=== PATIENT | female | born 1940 | race Caucasian/White ===

== ENCOUNTER 2024-06-22 23:03 | Observation (INO) | payer MEDICARE, SELFPAY ==
--- OUTSIDE RECORDS SUMMARY | 2024-06-22 23:06 | XMS_ITS | Clinical Summary ---
Author Organization [facility] Address [address] [place] [id number] Care Team Providers Care Chargeback Specialist Name Role Phone Alfreda Ray PA-C Primary Care Provider + Alfreda Ray PA-C Unavailable [phone] Katrin Orellana PA-C Unavailable Shanna Vang PA-C Unavailable [phone] Fransisco Eddy MD Unavailable [phone] Cristina Hsieh [facility] Unavailable Alfreda Ray PA-C Unavailable [phone] Cristina Hsieh [facility] Unavailable Dakota Tatum MD Unavailable [phone] Dakota Tatum MD Unavailable [phone] Srinivas Marie DO Unavailable [phone] Allergies Active Allergy Reactions Criticality Noted Date Comments Codeine Low 08/11/2016 Other reaction(s): severe nausea Medications acetaminophen (TYLENOL) 500 MG tabletIndications:P rimary osteoarthritis involving multiple joints Take 2 tablets (1,000 mg) by mouth 3 times daily as needed for pain 3 Active cyanocobalamin (VITAMIN B-12) 1000 MCG tablet Take 1,000 mcg by mouth daily Active predniSONE (DELTASONE) 5 MG tabletIndications:P olyarthralgia Take 1 tab daily for 90 days 90 tablet 1 4 Active atenolol (TENORMIN) 25 MG tabletIndications:B enign hypertension with CKD (chronic kidney disease) stage III (H) Take 1 tablet (25 mg) by mouth daily. 90 tablet 3 4 Active lisinopril-hydrochl orothiazide (ZESTORETIC) 10-12.5 MG tabletIndications:B enign hypertension with CKD (chronic kidney disease) stage III (H) Take 1 tablet by mouth daily. 90 tablet 3 4 Active simvastatin (ZOCOR) 20 MG tabletIndications:H ypercholesterolemia Take 1 tablet (20 mg) by mouth at bedtime. 90 tablet 3 4 Active DULoxetine (CYMBALTA) 60 MG capsuleIndications: Primary osteoarthritis involving multiple joints Take 1 capsule (60 mg) by mouth daily (with dinner). 90 capsule 3 4 Active gabapentin (NEURONTIN) 300 MG capsuleIndications: Primary osteoarthritis involving multiple joints,Arthralgia, unspecified joint Take 2 capsules (600 mg) by mouth every morning AND 2 capsules (600 mg) daily (with lunch) AND 3 capsules (900 mg) every evening. 630 capsule 3 4 Active rivaroxaban ANTICOAGULANT (XARELTO) 10 MG TABS tabletIndications:A cute deep vein thrombosis (DVT) of femoral vein of left lower extremity (H),Family history of clotting disorder Take 1 tablet (10 mg) by mouth daily with food. 90 tablet 3 4 Active naltrexone (DEPADE/REVIA) 50 MG tabletIndications:S evere obesity (BMI 35.0-39.9) with comorbidity (H) Take 25 mg (half tablet) daily x 7 days then 50 mg (1 tablet) daily 90 tablet 1 4 Active RINVOQ 15 MG tabletIndications:R heumatoid arthritis involving multiple sites with positive rheumatoid factor (H) TAKE 1 TABLET (15 MG) BY MOUTH DAILY 30 tablet 5 4 Active predniSONE (DELTASONE) 1 MG tabletIndications:P olyarthralgia Take 4 tablets daily, taper per Dr. 120 tablet 2 4 Active valACYclovir (VALTREX) 500 MG tabletIndications:R ecurrent cold sores Take 1 tablet (500 mg) by mouth daily. 90 tablet 3 4 Active cefpodoxime (VANTIN) 200 MG tabletIndications:C omplicated UTI (urinary tract infection) Take 1 tablet (200 mg) by mouth 2 times daily for 7 days. 14 tablet 4 06/22/19 25 Active sulfamethoxazole-tr imethoprim (BACTRIM DS) 800-160 MG tabletIndications:C omplicated UTI (urinary tract infection) Take 1 tablet by mouth 2 times daily for 7 days. 14 tablet 4 06/24/19 25 Active Hospital, Clinic, or Other Facility Administered Medication Ordered Dose Route Frequency Start Date End Date Status cefTRIAXone (ROCEPHIN) in lidocaine 1% for IM administration 1 gIndications:see associated diagnosis for clinic use 1 g IM ONCE 06/15/2024 06/15/2024 Ended Active Problems Problem Noted Date Diagnosed Date Adverse effect of prednisone, sequela - weight g ain 03/16/2024 Severe obesity (BMI 35.0-39. 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 Fransisco Eddy @ [facility] - on Humira & hydroxychloroquine 08/27/2022 Family history of clotting disorder 08/26/2022 Chronic diarrhea 03/09/2022 Osteopenia -DEXA 09/30/2020 -repeat 202303/09/20 Vitamin B12 deficiency (non anemic) 03/05/2022 Colon cancer (H) - s/p partial colectomy 2008 Acute deep vein thrombosis ( DVT) of femoral vein of left lower extremity (H) - due to hx of recurrence hematology recommends daily Xaralto 10 mg prophylaxis indefinitely. avoid Eliquis d/t colectomy 12/08/2021 Primary osteoarthritis involving multiple joints 09/27/2019 Hyperopia of both eyes with astigmatism and pres byopia 01/31/2019 Insomnia, unspecified type 04/22/2017 Benign hypertension with CKD (chronic kidney disease) stage III 04/08/2017 Bilateral pseudophakia 04/05/2017 Prediabetes 03/21/2012 Varicose veins of legs 10/13/2011 Seborrheic keratosis 09/04/2010 Eczema 06/17/2010 Hypercholesterolemia 11/08/2007 Resolved Problems Problem Noted Date Diagnosed Date Resolved Date Deconditioned low back 06/22/202309/22 Continuous opioid dependence 01/04/2023 08/19/2023 Arthralgia, unspecified joint 08/26/2022 03/10/2023 CSA signed - 03/10/2023- tram adol 50 mg #60 monthly, q6 month OV 08/26/2022 08/19/2023 Osteoarthritis of spine with radiculopathy, lumbar region 03/06/2022 03/09/2022 Deep vein thrombosis (DVT) o f popliteal vein of left lower extremity, unspecified chronicity 12/09/2021 12/30/2021 DVT (deep venous thrombosis) 12/08/2021 12/30/2021 Rheumatoid factor positive - Rheumatology consultation 2011 was not concerned for RA - 2nd opinion planned 04/202210/06/2021 08/27/2022 Hip pain 10/29/2020 08/26/2022 Chronic right-sided low back pain without sciatica 10/29/2020 09/23/2023 Sedative, hypnotic or anxiolytic dependence 02/21/2016 08/19/2023 Chronic pain 03/07/2015 12/30/2021 Overview (09/25/2019): Patient is followed by KELLY [facility] for ongoing prescription of pain medication. All refills should be approved by this provider, or covering partner. Medication(s): HYDROcodone-acetaminophen (NORCO) 5-325 MG per tablet #90 traMADol (ULTRAM) 50 MG tablet #90 temazepam (RESTORIL) 7.5 MG capsule #30 Maximum quantity per month: 30 or 90 per 3 months Clinic visit frequency required: Q 3 months Controlled substance agreement on file: Yes Date(s): 03/08/2015 Pain Clinic evaluation in the past: No DIRE Total Score(s): No flowsheet data found. Last [facility] website verification: Done 09/25/2019 [email or web address] Anxiety 04/13/2014 12/30/2021 HTN, goal below 140/90 07/14/201310/21 Hyperlipidemia with target LDL less than 130 4 12/30/2021 CKD (chronic kidney disease) stage 2, GFR 60-89 ml/min 12/28/2011 12/30/2021 Advanced directives, counseling/discussion 12/10/2011 12/06/2023 Overview (04/08/2017): Discussed advance care planning with patient; information given to patient to review. 12/10/2011 Advance Care Planning 04/08/2017: ACP Review of Chart / Resources Provided: Reviewed chart for advance care plan. Alexandria Zenobia Bradshaw has been provided information and resources to begin or update their advance care plan. Added by Cata Olivo S/P knee replacement 09/04/2010 022 Hyperlipidemia LDL goal <160 05/29/2010 07/14/2013 Hyperlipidemia LDL goal <100 04/20/2010 09/04/2010 Personal history of colon cancer, stage I 11/07/2009 12/08/2021 Colon polyps 09/12/2009 12/30/2021 Overview (09/12/2009): H/o colon cancer, recommend colonoscopy every 3 yrs DJD (degenerative joint disease) of knee 05/07/2009 12/30/2021 HTN (hypertension), benign 04/23/2009 0 07/14/2013 Hypertension 03/22/2008 12/11/2010 LEG VARICOSITY W INFLAM [454.1] 01/24/2004 12/08/2021 Overview (10/17/2008): Patient is followed by CARISSA PAGAN for ongoing prescription of narcotic pain medicine. Med: Vicodin 5/500. Maximum use per month: 31 Expected duration: Five years Narcotic agreement on file: NO Clinic visit recommended: Q 6 months Symptomatic menopausal or fe male climacteric states 01/24/2004 03/09/2022 Insomnia 01/24/2004 04/22/2017 Overview (03/21/2015): Problem list name updated by automated process. Provider to review Encounters Date Type Department Care Team Description 06/17/2024 Orders Only [address] [phone] Yamile James PA-C Complicated UTI (urinary tract infection) (Primary Dx) 06/15/2024 2:05 PM PAPER RECLAIMING MACHINE OPERATOR Office Visit [facility] [place] [address] [place] [phone] Yamile James PA-C Complicated UTI (urinary tract infection) (Primary Dx); Dysuria; Flank pain 06/15/2024 Travel 06/07/2024 3:40 PM PAPER RECLAIMING MACHINE OPERATOR E-Visit [address] [phone] Alfreda Ray PA-C Derm Problem (Entered automatically based ... 06/07/2024 MyC Medical Advice [address] [phone] Alfreda Ray PA-C 06/06/[address] [phone] Alfreda Ray PA-C 06/02/2024 10:30 AM PAPER RECLAIMING MACHINE OPERATOR Virtual Visit [facility] [address] [place] [phone] Fransisco Eddy MD Wedemeyer, Rachel M, [facility] Rheumatoid arthritis involving multiple sites with positive rheumatoid factor (H) (Primary Dx); Primary osteoarthritis involving multiple joints; Severe obesity (BMI 35.0-39.9) with comorbidity (H) - prediabetes, hypertension 05/04/2024 12:30 PM PAPER RECLAIMING MACHINE OPERATOR Office Visit [facility] [address] [phone] Fransisco Eddy MD Polyarthralgia (Primary Dx) 05/04/2024 Travel 05/01/2024 Travel 04/30/2024 MyC Medical Advice [facility] [address] [place] [phone] Alfreda Ray PA-C Urinary Problem 04/03/2024 Refill [facility] [place] [address] [place] [phone] Fransisco Eddy MD Medication Refill 2024 Telephone [facility] [address] 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 03/27/2024 Travel 03/23/2024 Travel from Last 3 Months Immunizations Name Administration Dates Next Due COVID-19 12+ (MODERNA) 05/03/2023 COVID-19 12+ (Pfizer) 03/16/2024 COVID-19 MONOVALENT 12+ (Pfizer) 03/19/2021,03/0 10/2020,08/02/2020 COVID-19 Monovalent 12+ (Pfizer 2021) 09/29/2021 Flu, Unspecified 03/01/2019 Influenza (H1N1) 07/09/2009 Influenza (High Dose) Trival ent,PF (Fluzone) 03/16/2024,02/18/2022,02/20/2020,2017,04/08/2017,03/03/2016,04/08/2015,1 06/24/2012 Influenza (IIV3) PF 03/21/2012, 1,03/15/2010,2008,04/23/2008,05/03/2007 Influenza Vaccine 65+ (FLUAD) 03/06/2023 Influenza Vaccine 65+ (Fluzone HD) 03/06/2023,,02/27/2021 Influenza Vaccine >6 months,quad, PF 03/29/2014 Pneumo Conj 13-V (2010&after) 04/08/2015 Pneumococcal 23 valent 09/18/2008 RSV Vaccine (Arexvy) 05/03/2023 TD,PF 7+ (Tenivac) 04/08/2017 TDAP Vaccine (Adacel) 03/14/2007 Twinrix A/B 09/08/2023 Zoster recombinant adjuvante d (SHINGRIX) 02/23/2019,08/19/2018 Zoster vaccine, live 08/13/2015 Family History Medical History Relation Comments Hyperlipidemia Brother 1 Hypertension Brother 1 Pulmonary Embolism Brother 1 5 PEs in hosp ital Hyperlipidemia Brother 2 Hypertension Brother 2 Liver Cancer Brother 2 Donnie passed luciana y Oct, 2016 from Liver cancer Hyperlipidemia Brother 3 Hypertension Brother 3 Melanoma Brother 3 Melanoma Hypertension Brother 4 Prostate Cancer Brother 4 metastasized Lung Cancer Father of lung can cer Liver Cancer Maternal Aunt Diabetes Maternal Grandfather C.A.D. Mother Cardiovascular Mother CHF Hyperlipidemia Mother Hypertension Mother Deep Vein Thrombosis (DVT) Sister 1 Pulmonary Embolism Sister 1 Deep Vein Thrombosis (DVT) Sister 2 Colon Cancer Son 1 Prostate Cancer Son 2 Stomach Cancer Son 2 Breast Cancer No family hx of Relation Status Comments Brother 1 Alive Brother 2 Brother 3 Alive Brother 4 Father Maternal Aunt Maternal Grandfather Mother Sister 1 Alive Sister 2 Alive Son 1 Son 2 Alive Social History Tobacco Use Types Packs/Day Years Used Date Smoking Tobacco: Former Cigarettes 1 5 0 06/21/1963 - 06/21/1968 Passive Smoke Exposure: Past Smokeless Tobacco: Never Tobacco Cessation:Counseling Given: Not Answered Comments:not a smoker Alcohol Use Standard Drinks/Week Comments Yes 0 (1 standard drink = 0.6 oz pur e alcohol) rare 1 monthly Social Connection and Isolation Panel [NHANES] A nswer Date Recorded Frequency of Communication with Friends and Fami ly Not on file 03/15/2024 How often do you get together with friends or re latives? Once a week 03/15/2024 Attends Yazdanism Services Not on file 03/15 Active Member of Clubs or Organizations Not on f ile 03/15/2024 Attends Club or Organization Meetings Not on anu e 03/15/2024 Marital Status Not on file 03/15/2024 PHQ-2 Answer Date Recorded PHQ-2 Score 0 03/16/2024 [facility] - Occupational Stress Questionnaire Answer Date Recorded Do you feel stress - tense, restless, nervous, or anxious, or unable to sleep at night because your mind is troubled all the time - these days? Not at all 03/15/2024 Exercise Vital Sign Answer Date Recorde d On average, how many days pe r week do you engage in moderate to strenuous exercise (like a brisk walk)? 0 days 03/15/2024 On average, how many minutes do you engage in exercise at this level? 0 min 03/15/2024 Adolescent Education Answer Date Record ed Getting School Help Needed Not on file 03/12 Food Insecurity Answer Date Recorded Within the past 12 months, d id you worry that your food would run out before you got money to buy more? No 03/15/2024 Within the past 12 months, d id the food you bought just not last and you didn t have money to get more? No 03/15/2024 Housing Stability Answer Date Recorded Do you have housing? (Kasey g is defined as stable permanent housing and does not include staying ouside in a car, in a tent, in an abandoned building, in an overnight nursing home, or couch-surfing.) Yes 03/15/2024 Are you worried about losing your housing? No 03/15/2024 Financial Resource Strain Answer Date R ecorded Within the past 12 months, h ave you or your family members you live with been unable to get utilities (heat, electricity) when it was really needed? No 03/15/2024 Transportation Needs Answer Date Record ed Within the past 12 months, h as lack of transportation kept you from medical appointments, getting your medicines, non-medical meetings or appointments, work, or from getting things that you need? No 03/15/2024 Interpersonal Safety Answer Date Record ed Do you feel physically and e motionally safe where you currently live? Yes 03/16/2024 Within the past 12 months, h ave you been hit, slapped, kicked or otherwise physically hurt by someone? No 03/16/2024 Within the past 12 months, h ave you been humiliated or emotionally abused in other ways by your partner or ex-partner? No 03/16/2024 Comments No Sex and Gender Information Value Date Recorded Sex Assigned at Female 08/17/2018 7:56 AM PAPER RECLAIMING MACHINE OPERATOR Legal Sex Female 4:24 AM PAPER RECLAIMING MACHINE OPERATOR Gender Identity Female 08/17/2018 7:56 AM PAPER RECLAIMING MACHINE OPERATOR Sexual Orientation Straight 08/17/2018 7: 56 AM PAPER RECLAIMING MACHINE OPERATOR Last Filed Vital Signs Vital Sign Reading Time Taken Comments Blood Pressure 136/70 06/15/2024 6:10 PM PAPER RECLAIMING MACHINE OPERATOR Pulse 64 06/15/2024 4:35 PM PAPER RECLAIMING MACHINE OPERATOR Temperature 36.8 C (98.2 F) 06/15/2024 4:35 PM PAPER RECLAIMING MACHINE OPERATOR Respiratory Rate 18 06/15/2024 4:35 PM PAPER RECLAIMING MACHINE OPERATOR Oxygen Saturation 97% 06/15/2024 4:35 PM PAPER RECLAIMING MACHINE OPERATOR Inhaled Oxygen Concentration - - Weight 94.3 kg (208 lb) 06/15/2024 4:35 PM PAPER RECLAIMING MACHINE OPERATOR Height 157.5 cm (5' 2) 05/04/2024 12:20 PM PAPER RECLAIMING MACHINE OPERATOR Body Mass Index 38.04 05/04/2024 12:20 PM PAPER RECLAIMING MACHINE OPERATOR Plan of Treatment Upcoming Encounters Date Type Department Care Team (Late st Contact Info) Description 09/07/2024 10:00 AM CDT Office Visit [facility] Special[facility] [address] [phone] Fransisco Eddy MD [address] [place] [phone] 03/29/2025 3:40 PM CDT Office Visit [address] [phone] Alfreda Ray PA-C [address] [place] [address] [phone] Health Maintenance Due Date Last Done Comments CT COLONOGRAPHY 1942 FIT 1942 FLEX SIG 1942 sDNA (Cologuard) 1942 DEXA 10/01/2023 09/30/2020, 0610/2014, 09/04/2010, Additional history exists HEPATITIS A IMMUNIZATION (2 of 3 - Hep A Twinrix risk 3-dose series) 10/06/2023 09/08/2023 COVID-19 Vaccine ( season) 2024 03/16/2024, 05/03/2023, 04/22/2022, Additional history exists PHQ-2 (once per calendar year) 2024 03/16/2024, 12/13/2023, 03/10/2023, Additional history exists A1C 09/13/2024 03/16/2024, 02/20, 09/09/2022, Additional history exists ANNUAL REVIEW OF HM ORDERS 03/16/202503/16, 08/26/2022, 09/04/2021, Additional history exists CMP 03/16/2025 03/16/2024, 07/0 06/2023, 12/09/2023, Additional history exists FALL RISK ASSESSMENT 03/16/2025 03/16/2024, 03/10/2023, 03/05/2022, Additional history exists LIPID 03/16/2025 03/16/2024, 02/20, 05/07/2022, Additional history exists MEDICARE ANNUAL WELLNESS VISIT 03/16/2025 03/16/2024, 03/10/2023, 03/05/2022, Additional history exists MICROALBUMIN 03/16/2025 03/16/2024, 03/0 01/2023, 09/04/2021, Additional history exists VITAMIN B12 03/16/2025 03/16/2024, 02/20, 04/27/2022 CBC 06/15/2025 06/15/2024, 02/20, 02/22/2024, Additional history exists HEMOGLOBIN 06/15/2025 06/15/2024, 02/20, 02/22/2024, Additional history exists COLONOSCOPY 09/09/2026 09/09/2021, 03/0 12/2015, 10/11/2012, Additional history exists COLORECTAL CANCER SCREENING 09/09/2026 DTAP/TDAP/TD IMMUNIZATION (3 - Td or Tdap) 04/08/2027 04/08/2017, 03/14/2007 ADVANCE CARE PLANNING 03/16/2029 03/16/2024 , 12/06/2023, 03/19/2023, Additional history exists Pneumococcal Vaccine: 50+ Years Completed 04/08/2015, 09/18/2008 ZOSTER IMMUNIZATION Completed 02/23/2019, 08/19/2018, 08/13/2015 MAMMO SCREENING Discontinued 09/30/2020, 01/19, 11/30/2017, Additional history exists RSV VACCINE Completed 05/03/2023 INFLUENZA VACCINE Completed 03/16/2024, , 03/06/2023, Additional history exists BMP Discontinued 06/15/2024, 02/20, 02/22/2024, Additional history exists URINALYSIS Completed 06/15/2024, 02/20, 02/09/2024, Additional history exists HPV IMMUNIZATION Aged Out No longer e ligible based on patient's age to complete this topic MENINGITIS IMMUNIZATION Aged Out No l onger eligible based on patient's age to complete this topic RSV MONOCLONAL ANTIBODY Aged Out No l onger eligible based on patient's age to complete this topic Procedures Procedure Name Priority Date/Time Associated Diagnosis Comments CBC WITH PLATELETS & DIFFERENTIAL STAT 06/15/2024 5:14 PM PAPER RECLAIMING MACHINE OPERATOR Flank pain CBC WITH PLATELETS AND DIFFERENTIAL STAT 06/15/2024 5:14 PM PAPER RECLAIMING MACHINE OPERATOR Flank pain BASIC METABOLIC PANEL STAT 06/15/2024 5:14 PM PAPER RECLAIMING MACHINE OPERATOR Flank pain CRP INFLAMMATION STAT 06/15/2024 5:14 PM PAPER RECLAIMING MACHINE OPERATOR Flank pain URINE CULTURE Routine 06/15/2024 2:15 PM PAPER RECLAIMING MACHINE OPERATOR Dysuria URINE MICROSCOPIC EXAM Routine 06/15/2024 2:15 PM PAPER RECLAIMING MACHINE OPERATOR Dysuria UA MACROSCOPIC WITH REFLEX TO MICRO AND CULTURE Routine 06/15/2024 2:15 PM PAPER RECLAIMING MACHINE OPERATOR Dysuria ALBUMIN RANDOM URINE QUANTITATIVE Routine 03/16/2024 3:16 PM CDT Benign hypertension with CKD (chronic kidney disease) stage III (H) VITAMIN B12 Routine 03/16/2024 3:09 PM CDT Vitamin B12 deficiency (non anemic) LIPID REFLEX TO DIRECT LDL PANEL Routine 03/16/2024 3:09 PM CDT Hypercholesterolemia COMPREHENSIVE METABOLIC PANEL Routine 03/16/2024 3:09 PM CDT Benign hypertension with CKD (chronic kidney disease) stage III (H) Prediabetes HEMOGLOBIN A1C Routine 03/16/2024 3:09 PM CDT Prediabetes DX HIP/PELVIS/SPINE W LAT FRACTION ANALYSIS Routine 09/30/2020 12:30 PM CDT Other specified menopausal and perimenopausal disorders Osteopenia, unspecified location MA SCREENING BILATERAL W/ JOSE Routine 09/30/2020 12:11 PM CDT Encounter for screening mammogram for breast cancer COLONOSCOPY - HIM SCAN 08/26/2015 12:00 AM PAPER RECLAIMING MACHINE OPERATOR from Last 3 Months or Most Recently Relevant to Health Maintenance Results * (ABNORMAL) CBC with platelets and differential (06/15/2024 5:14 PM PAPER RECLAIMING MACHINE OPERATOR) WBC Count 5.3 4.0 - 11.0 10e3/uL 06/15/2024 5:37 PM PAPER RECLAIMING MACHINE OPERATOR [facility] RBC Count 3.23(L) 3.80 - 5.20 10e6/uL 06/15/2024 5:37 PM PAPER RECLAIMING MACHINE OPERATOR [facility] Hemoglobin 10.9(L) 11.7 - 15.7 g/dL 06/15/2024 5:37 PM PAPER RECLAIMING MACHINE OPERATOR [facility] Hematocrit 34.2(L) 35.0 - 47.0 % 06/15/2024 5:37 PM PAPER RECLAIMING MACHINE OPERATOR [facility] MCV 106(H) 78 - 100 fL 06/15/2024 5:37 PM PAPER RECLAIMING MACHINE OPERATOR [facility] MCH 33.7(H) 26.5 - 33.0 pg 06/15/2024 5:37 PM PAPER RECLAIMING MACHINE OPERATOR [facility] MCHC 31.9 31.5 - 36.5 g/dL 06/15/2024 5:37 PM PAPER RECLAIMING MACHINE OPERATOR [facility] RDW 13.3 10.0 - 15.0 % 06/15/2024 5:37 PM PAPER RECLAIMING MACHINE OPERATOR [facility] Platelet Count 302 150 - 450 10e3/uL 06/15/2024 5:37 PM PAPER RECLAIMING MACHINE OPERATOR [facility] % Neutrophils 65 % 06/15/2024 5:37 PM PAPER RECLAIMING MACHINE OPERATOR [facility] % Lymphocytes 26 % 06/15/2024 5:37 PM PAPER RECLAIMING MACHINE OPERATOR [facility] % Monocytes 8 % 06/15/2024 5:37 PM PAPER RECLAIMING MACHINE OPERATOR [facility] % Eosinophils 0 % 06/15/2024 5:37 PM PAPER RECLAIMING MACHINE OPERATOR [facility] % Basophils 0 % 06/15/2024 5:37 PM PAPER RECLAIMING MACHINE OPERATOR [facility] % Immature Granulocytes 1 % 06/15/2024 5:37 PM PAPER RECLAIMING MACHINE OPERATOR [facility] Absolute Neutrophils 3.4 1.6 - 8.3 10e3/uL 06/15/2024 5:37 PM PAPER RECLAIMING MACHINE OPERATOR [facility] Absolute Lymphocytes 1.4 0.8 - 5.3 10e3/uL 06/15/2024 5:37 PM PAPER RECLAIMING MACHINE OPERATOR [facility] Absolute Monocytes 0.4 0.0 - 1.3 10e3/uL 06/15/2024 5:37 PM PAPER RECLAIMING MACHINE OPERATOR [facility] Absolute Eosinophils 0.0 0.0 - 0.7 10e3/uL 06/15/2024 5:37 PM PAPER RECLAIMING MACHINE OPERATOR [facility] Absolute Basophils 0.0 0.0 - 0.2 10e3/uL 06/15/2024 5:37 PM PAPER RECLAIMING MACHINE OPERATOR [facility] Absolute Immature Granulocytes 0.0 <=0.4 10e3/uL 06/15/2024 5:37 PM PAPER RECLAIMING MACHINE OPERATOR [facility] Blood BLOOD SPECIMEN / Unknown Venipuncture / Unknown 06/15/2024 5:14 PM PAPER RECLAIMING MACHINE OPERATOR 06/15/2024 5:14 PM PAPER RECLAIMING MACHINE OPERATOR us Yamile James PA-C LAB - BLOOD ORDERABLES Final R esult [facility] [address] [facility] (no room number, 1st floor of clinic) [place] [address], [facility] * CRP, inflammation (06/15/2024 5:14 PM PAPER RECLAIMING MACHINE OPERATOR) CRP Inflammation <3.00 <5.00 mg/L 06/15/20 7:09 PM [facility] Blood BLOOD SPECIMEN / Unknown Venipuncture / Unknown 06/15/2024 5:14 PM PAPER RECLAIMING MACHINE OPERATOR 06/15/2024 5:14 PM PAPER RECLAIMING MACHINE OPERATOR Yamile James PA-C LAB - BLOOD ORDERABLES Final R esult LABORATORY [facility] [address] Lab (1st floor, no room number) [place] [address] * (ABNORMAL) Basic metabolic panel (06/15/2024 5:14 PM PAPER RECLAIMING MACHINE OPERATOR) Pathologist [facility] Sodium 143 135 - 145 mmol/L 06/15/2024 7:09 PM [facility] [facility] Potassium 4.6 3.4 - 5.3 mmol/L 06/15/2024 7:09 PM [facility] Chloride 106 98 - 107 mmol/L 06/15/2024 7:09 PM [facility] Carbon Dioxide (CO2) 26 22 - 29 mmol/L 06/15/2024 7:09 PM [facility] Anion Gap 11 7 - 15 mmol/L 06/15/2024 7:09 PM [facility] Urea Nitrogen 26.3(H) 8.0 - 23.0 mg/dL 06/15/2024 7:09 PM [facility] Creatinine 1.18(H) 0.51 - 0.95 mg/dL 06/15/2024 7:09 PM [facility] GFR Estimate 46(L) >60 mL/min/1.7 3m2 06/15/2024 7:09 PM [facility] Comment:eGFR calculated usin 2020 CKD-EPI equation. Calcium 9.8 8.8 - 10.4 mg/dL 06/15/2024 7:09 PM [facility] Comment:Reference intervals for this test were updated on 01/04/2024 to reflect our healthy population more accurately. There may be differences in the flagging of prior results with similar values performed with this method. Those prior results can be interpreted in the context of the updated reference intervals. Glucose 125(H) 70 - 99 mg/dL 06/15/2024 7:09 PM [facility]APER RECLAIMING MACHINE OPERATOR [facility] Blood BLOOD SPECIMEN / Unknown Venipuncture / Unknown 06/15/2024 5:14 PM PAPER RECLAIMING MACHINE OPERATOR 06/15/2024 5:14 PM PAPER RECLAIMING MACHINE OPERATOR us Yamile James PA-C LAB - BLOOD ORDERABLES Final R esult LABORATORY [facility] Lab [address] Lab (1st floor, no room number) [place] [address], [facility] * (ABNORMAL) UA Macroscopic with reflex to Microscopic and Culture - Clinic Collect (06/15/2024 2:15 PM PAPER RECLAIMING MACHINE OPERATOR) Color Urine Yellow Colorless, Straw, Light Yellow, Yellow 06/15/2024 2:28 PM PAP[facility] RECLAIMING MACHINE OPER[facility] Appearance Urine Clear Clear 06/15/20 2:28 PM [facility] RECLAIMING MACHINE OPERATOR [facility] Glucose Urine Negative Negative mg/dL 06/15/2024 2:28 PM PAPER RECLAIMING MACHINE OPERATOR [facility] Bilirubin Urine Small(A) Negative 2:28 PM PAPER RECLAIMING MACHINE OPERATOR [facility] Ketones Urine 15(A) Negative mg/dL 06/15/2024 2:28 PM PAPER RECLAIMING MACHINE OPERATOR [facility] Specific Prole Urine >=1.030 1.003 - 1.035 06/15/2024 2:28 PM PAPER RECLAIMING MACHINE OPERATOR [facility] Blood Urine Trace(A) Negative 06/15/2024 2:28 PM PAPER RECLAIMING MACHINE OPERATOR [facility] pH Urine 5.5 5.0 - 7.0 06/15/2024 2:28 PM PAPER RECLAIMING MACHINE OPERATOR [facility] Protein Albumin Urine 100(A) Negative mg/dL 06/15/2024 2:28 PM PAPER RECLAIMING MACHINE OPERATOR [facility] Urobilinogen Urine 0.2 0.2, 1.0 E.U./dL 06/15/2024 2:28 PM PAPER RECLAIMING MACHINE OPERATOR LV [facility]ATORY Nitrite Urine Negative Negative 06/15/2024 2:28 PM PAPER RECLAIMING MACHINE OPERATOR [facility] Leukocyte Esterase Urine Moderate(A) Negative 06/15/2024 2:28 PM PAPER RECLAIMING MACHINE OPERATOR [facility] Urine URINE SPECIMEN OBTAINED BY CLEAN CATCH PROCEDURE / Unknown Non-blood Collection / Unknown 06/15/2024 2:15 PM PAPER RECLAIMING MACHINE OPERATOR 06/15/2024 2:15 PM PAPER RECLAIMING MACHINE OPERATOR us Esteban Gant MD LAB - URINE ORDERABLES Final Res ult Performing Organization Address City/[facility]/ZIP Co de Phone Number LABORATORY [address] Lab (no room number, 1st floor of [facility]) [place] [phone] * (ABNORMAL) Urine Microscopic Exam (06/15/2024 2:15 PM PAPER RECLAIMING MACHINE OPERATOR) Bacteria Urine Moderate( A) None Seen /HPF KAILYN 06/15/2024 2:35 PM PAPER RECLAIMING MACHINE OPERATOR [facility] RBC Urine 2-5(A) 0-2 /HPF /HPF KAILYN 06/15/2024 2:35 PM PAPER RECLAIMING MACHINE OPERATOR [facility] WBC Urine >100(A) 0-5 /HPF /HPF KAILYN 06/15/2024 2:35 PM PAPER RECLAIMING MACHINE OPERATOR [facility] Squamous Epithelials Urine Few(A) None Seen /LPF KAILYN 06/15/2024 2:35 PM PAPER RECLAIMING MACHINE OPERATOR [facility] Urine URINE SPECIMEN OBTAINED BY CLEAN CATCH PROCEDURE / Unknown Non-blood Collection / Unknown 06/15/2024 2:15 PM PAPER RECLAIMING MACHINE OPERATOR 06/15/2024 2:15 PM PAPER RECLAIMING MACHINE OPERATOR us Esteban Gant MD LAB - URINE ORDERABLES Final Res ult Performing Organization Address [facility]/ZIP Co de Phone Number LABORATORY [address] (no room number, 1st floor of [facility]) [address] * (ABNORMAL) Urine Culture (06/15/2024 2:15 PM PAPER RECLAIMING MACHINE OPERATOR) Culture 10,000-50,000 CFU/mL Enterobacter cloacae complex(A) 06/16/2024 11:19 PM PAPER RECLAIMING MACHINE OPERATOR [facility] Urine URINE SPECIMEN OBTAINED BY CLEAN CATCH PROCEDURE / Unknown Non-blood Collection / Unknown 06/15/2024 2:15 PM PAPER RECLAIMING MACHINE OPERATOR 06/15/2024 2:28 PM PAPER RECLAIMING MACHINE OPERATOR Narrative Organism Antibiotic Method Susceptibility Enterobacter cloacae complex Ampicillin KAILYN Resistant Comment:Intrinsicall y Resistant Enterobacter cloacae complex Ampicillin/ Sulbactam KAILYN Resistant Comment:Intrinsicall y Resistant Enterobacter cloacae complex Piperacillin/Tazobactam KAILYN Resistant Enterobacter cloacae complex Cefazolin KAILYN Resistant Comment:Intrinsicall y Resistant Enterobacter cloacae complex Ceftazidime KAILYN Resistant Enterobacter cloacae complex Ceftriaxone KAILYN Resistant Enterobacter cloacae complex Cefepime KAILYN <=0.12 ug/mL: Susceptible Enterobacter cloacae complex Gentamicin KAILYN <=1 ug/mL: Susceptible Enterobacter cloacae complex Ciprofloxacin KAILYN <=0.06 ug/mL: Susceptible Enterobacter cloacae complex Levofloxacin KAILYN <=0.12 ug/mL: Susceptible Enterobacter cloacae complex Nitrofurantoin KAILYN 32 ug/mL: Susceptible Enterobacter cloacae complex Trimethoprim/Sulfamethoxaz ole KAILYN <=1/19 ug/mL: Susceptible Comment: Enterobacter cloacae, Klebsiella aerogenes, and Citrobacter freundii have moderate to high levels of inducible AmpC -lactamase expression. The use of 3rd generation cephalosporins including ceftriaxone and ceftazidime, as well as piperacillin-tazobactam, should be avoided for invasive infections, regardless of susceptibility results. us Esteban Gant MD LAB - MICRO GENERAL ORDERABLES F inal Result [facility] Inf. Diseases Diag. Lab [address] [facility], [address] [place] [id number] * Albumin Random Urine Quantitative with Creat Ratio (03/16/2024 3:16 PM CDT) Creatinine Urine mg/dL 106.0 mg/dL 03/17/2024 7:42 PM CDT [facility] Comment:The reference ranges have not been established in urine creatinine. The results should be integrated into the clinical context for interpretation. Albumin Urine mg/L 13.1 mg/L 2023 7:42 PM CDT [facility] Comment:The reference ranges have not been established in urine albumin. The results should be integrated into the clinical context for interpretation. Albumin Urine mg/g Cr 12.36 0.00 - 25.00 mg/g Cr 03/17/2024 7:42 PM CDT [facility] Comment: Microalbuminuria is defined as an albumin:creatinine ratio of 17 to 299 for males and 25 to 299 for females. A ratio of albumin:creatinine of 300 or higher is indicative of overt proteinuria. Due to biologic variability, positive results should be confirmed by a second, first-morning random or 24-hour timed urine specimen. If there is discrepancy, a third specimen is recommended. When 2 out of 3 results are in the microalbuminuria range, this is evidence for incipient nephropathy and warrants increased efforts at glucose control, blood pressure control, and institution of therapy with an guktsogsqnr-nesitkfihx-oybacb (JUANCARLOS) inhibitor (if the patient can tolerate it). Urine URINE SPECIMEN / Unknown Non-blood Collection / Unknown 03/16/2024 3:16 PM CDT 03/16/2024 3:16 PM CDT us Alfreda Ray PA-C LAB - URINE ORDERABLES F inal Result [facility] Core Lab [address] [facility], Room [address] [phone] * (ABNORMAL) Lipid panel reflex to direct LDL Non-fasting (03/16/2024 3:09 PM CDT) Cholesterol 251(H) <200 mg/dL 03/17/2024 7:42 PM CDT [facility] Triglycerides 230(H) <150 mg/dL 03/17/2024 7:42 PM CDT [facility] Direct Measure HDL 80 >=50 mg/dL 03/17/2024 7:42 PM CDT [facility] LDL Cholesterol Calculated 125(H) <100 mg/dL 03/17/2024 7:42 PM CDT [facility] Non HDL Cholesterol 171(H) <130 mg/dL 03/17/2024 7:42 PM CDT [facility] Patient Fasting > 8hrs? No 03/17/2024 7:42 PM CDT [facility] Blood BLOOD SPECIMEN / Unknown Venipuncture / Unknown 03/16/2024 3:09 PM CDT 03/16/2024 3:09 PM CDT Narrative [facility] - 03/17/2024 7:42 PM CDT Cholesterol Desirable: < 200 mg/dL Borderline High: 200 - 239 mg/dL High: >= 240 mg/dL Triglycerides Normal: < 150 mg/dL Borderline High: 150 - 199 mg/dL High: 200-499 mg/dL Very High: >= 500 mg/dL Direct Measure HDL Female: >= 50 mg/dL Male: >= 40 mg/dL LDL Cholesterol Desirable: < 100 mg/dL Above Desirable: 100 - 129 mg/dL Borderline High: 130 - 159 mg/dL High: 160 - 189 mg/dL Very High: >= 190 mg/dL Non HDL Cholesterol Desirable: < 130 mg/dL Above Desirable: 130 - 159 mg/dL Borderline High: 160 - 189 mg/dL High: 190 - 219 mg/dL Very High: >= 220 mg/dL Alfreda Ray PA-C LAB - BLOOD ORDERABLES F inal Result Performing Organization Address City/[facility]/ZIP Co de Phone Number U LABORATORY [facility] [place] Core Lab [address] [facility], [address] [place] [address], [facility] * (ABNORMAL) HEMOGLOBIN A1C (03/16/2024 3:09 PM CDT) Pathologist [facility] Estimated Average Glucose 120(H) <117 mg/dL 03/16/2024 3:13 PM CDT [facility] Hemoglobin A1C 5.8(H) 0.0 - 5.6 % 03/16/2024 3:13 PM CDT [facility] Comment: Normal <5.7% Prediabetes 5.7-6.4% Diabetes 6.5% or higher Note: Adopted from ADA consensus guidelines. Blood BLOOD SPECIMEN / Unknown Venipuncture / Unknown 03/16/2024 3:09 PM CDT 03/16/2024 3:09 PM CDT Alfreda Ray PA-C LAB - BLOOD ORDERABLES F inal Result [facility] LAB[facility]ATORY [facility] [place] [facility] [address] [facility] Lab (no room number, 1st floor of clinic) [place] [address], [facility] * (ABNORMAL) Comprehensive metabolic panel (BMP + Alb, Alk Phos, ALT, AST, Total. Bili, TP) (03/16/2024 3:09 PM CDT) Sodium 143 135 - 145 mmol/L 03/17/2024 7:42 PM CDT [facility] Potassium 4.6 3.4 - 5.3 mmol/L 03/17/2024 7:42 PM CDT [facility] Carbon Dioxide (CO2) 24 22 - 29 mmol/L 03/17/2024 7:42 PM CDT [facility] Anion Gap 14 7 - 15 mmol/L 03/17/2024 7:42 PM CDT [facility] Urea Nitrogen 25.1(H) 8.0 - 23.0 mg/dL 03/17/2024 7:42 PM CDT [facility] Creatinine 1.07(H) 0.51 - 0.95 mg/dL 03/17/2024 7:42 PM CDT [facility] GFR Estimate 52(L) >60 mL/min/1.7 3m2 03/17/2024 7:42 PM CDT [facility] Comment:eGFR calculated usin 2020 CKD-EPI equation. Calcium 10.0 8.8 - 10.4 mg/dL 03/17/2024 7:42 PM CDT [facility] Comment:Reference intervals for this test were updated on 01/04/2024 to reflect our healthy population more accurately. There may be differences in the flagging of prior results with similar values performed with this method. Those prior results can be interpreted in the context of the updated reference intervals. Chloride 105 98 - 107 mmol/L 03/17/2024 7:42 PM CDT [facility] Glucose 106(H) 70 - 99 mg/dL 03/17/2024 7:42 PM CDT [facility] Alkaline Phosphatase 44 40 - 150 U/L 03/17/2024 7:42 PM CDT [facility] AST 19 0 - 45 U/L 03/17/2024 7:42 PM CDT [facility] ALT 15 0 - 50 U/L 03/17/2024 7:42 PM CDT [facility] Protein Total 6.7 6.4 - 8.3 g/dL 03/17/2024 7:42 PM CDT [facility] Albumin 4.5 3.5 - 5.2 g/dL 03/17/2024 7:42 PM CDT [facility] Bilirubin Total 0.5 <=1.2 mg/dL 03/17/2024 7:42 PM CDT [facility] Patient Fasting > 8hrs? No 03/17/2024 7:42 PM CDT [facility] Blood BLOOD SPECIMEN / Unknown Venipuncture / Unknown 03/16/2024 3:09 PM CDT 03/16/2024 3:09 PM CDT Alfreda Ray PA-C LAB - BLOOD ORDERABLES F inal Result [facility] [place] Core Lab [address] [facility], [address] * Vitamin B12 (03/16/2024 3:09 PM CDT) Vitamin B12 869 232 - 1,245 pg/mL 03/17/2024 7:42 PM CDT [facility] Blood BLOOD SPECIMEN / Unknown Venipuncture / Unknown 03/16/2024 3:09 PM CDT 03/16/2024 3:09 PM CDT Alfreda Ray PA-C LAB - BLOOD ORDERABLES F inal Result U [facility]ORY [facility] [place] Core Lab [address] [facility], [address] * DX Hip/Pelvis/Spine w Lateral (09/30/2020 12:30 PM CDT) Anatomical Region Laterality Modality Dexa Bone Mineral Den sity Narrative 10/04/2020 1:35 PM CDT BONE DENSITOMETRY [address] [address] 09/30/2020 PATIENT: Alexandria Bradshaw CHART: [id number] : 1940 AGE: [age] year old SEX: female REFERRING PROVIDER: Kelly Haley MD PROCEDURE: Bone density scanning was performed using DXA technology of the lumbar spine and hip. Scanning was performed on a FlickIM scanner. Reporting is completed in the form of a T-score. The T-score represents the standard deviation from peak bone mass based on a young healthy adult. REFERENCE T-SCORES: Normal -1.0 and greater Osteopenia Between -1.0 and -2.5 Osteoporosis -2.5 and less RISK FACTORS: Post-menopausal, Follow-up osteopenia CURRENT TREATMENT: Vitamin D FINDINGS: Lumbar Spine (L1-L4) T-score: 1.3 Left Femoral Neck T-score: -1.4 Right Femoral Neck T-score: -2.0 Lumbar (L1-L4) BMD: 1.352 Previous: 1.236 Total Hip Mean BMD: 0.945 Previous: 0.976 Comparison is made to another DXA performed on the same FlickIM machine on 12/10/2014. LATERAL VERTEBRAL ASSESSMENT Procedure: Vertebral fracture assessment was performed in the lateral decubitus position using a FlickIM densitometer. Indications for VFA: T-score of -1.0 or worse and age (female>69) Confounding factors for VFA: Arthritis/degenerative disc disease, rib shadows and scapular shadows. The LVA scan is interpretable from T9 to L4. VFA Findings: Using the semi-quantitative analysis of Shayy there was evidence of no spinal deformity VFA Impression: Alexandria Bradshaw has no vertebral fractures identified on the VFA. IMPRESSION Osteopenia (low bone mass) Degenerative changes of the spine Recommendations include ensuring adequate daily Calcium and Vitamin D intake Follow up scan can be considered in three years. Comparisons are not necessarily valid when precision within the machine has not been determined. Such a comparison has been performed here; one should interpret with caution. Compared to previous bone densitometry performed on this patient, there is the suggestion of no significant change of the lumbar spine, and no significant change of the total hip (but a decreasing trend overall when compared to scans dating to 2006). Current NOF guidelines recommend treatment for patients with the following: - Prior hip or vertebral fracture - T-score -2.5 or below - A 10 year risk of any major osteoporotic fracture >20% or 10 year risk of hip fracture >3%, as calculated using the FRAX calculator (www.shef.ac.uk/FRAX). This patient's risks with the use of FRAX (based on available information) are 15 % for major osteoporotic fracture and 4.1 % for hip fracture. Based on these guidelines, treatment (in addition to calcium and vitamin D) is recommended for this patient, after ruling out other causes of osteoporosis/low bone density. While this is meant as an aid to clinical decision-making, clinical judgment must still be used. CAN SALGUERO M.D. Kelly Haley MD IMG DEXA ORDERABLES Fin al Result * MA Screen Bilateral w/Jose (09/30/2020 12:11 PM CDT) Anatomical Region Laterality Modality Breast Bilateral Mammography Impressions 09/30/2020 1:32 PM CDT IMPRESSION: BI-RADS CATEGORY: 1 - Negative. RECOMMENDED FOLLOW-UP: Annual Mammography. Recommend routine annual screening mammography. Exam results letter mailed to patient. DEVIN LOZANO MD Narrative 09/30/2020 1:32 PM CDT SCREENING MAMMOGRAM, BILATERAL, DIGITAL w/CAD AND TOMOSYNTHESIS - 09/30/2020 12:11 PM. BREAST SYMPTOMS: No current breast complaints. COMPARISON: 02/01/19, 11/30/17, 04/22/15. BREAST DENSITY: Scattered fibroglandular densities. COMMENTS: No findings of suspicion for malignancy. Procedure Note Devin Lozano MD - 09/30/2020 SCREENING MAMMOGRAM, BILATERAL, DIGITAL w/CAD AND TOMOSYNTHESIS - 09/30/2020 12:11 PM. BREAST SYMPTOMS: No current breast complaints. COMPARISON: 02/01/19, 11/30/17, 04/22/15. BREAST DENSITY: Scattered fibroglandular densities. COMMENTS: No findings of suspicion for malignancy. IMPRESSION: BI-RADS CATEGORY: 1 - Negative. RECOMMENDED FOLLOW-UP: Annual Mammography. Recommend routine annual screening mammography. Exam results letter mailed to patient. DEVIN LOZANO MD Kelly Haley MD IMG MAMMOGRAPHY ORDERAB LES Final Result * COLONOSCOPY - HIM SCAN (08/26/2015 12:00 AM PAPER RECLAIMING MACHINE OPERATOR) 08/26/2015 us Provider Outside PROCEDURES Final Result from Last 3 Months or Most Recently Relevant to Health Maintenance Insurance MEDICARE ADVANTAGE [facility] MEDICARE ADVANTAGE * Guarantor: Alexandria Bradshaw Account Type Relation to Patient Date of Phone Billing Address Medication Therapy Self 1940 [address] [place] [address] MEDICARE ADVANTAGE Advance Directives For more information, please contact: [phone] * Full Code (Latest Code Status on File) Date Activated Date Inactivated Comments 12/08/2021 8:37 PM 12/09/2021 3:06 PM All basic an d advanced life-sustaining interventions are performed as appropriate Question Answer Comments Code status determined by: Discussion with patie nt/ legal decision maker Care Teams Chargeback Specialist Relationship Specialty Start Date End Date Alfreda Ray PA-C [address] [place] [phone] PCP - General Family Medicine 12/30/21 Alfreda Ray PA-C [address] [place] [phone] Referring Physician Family Medicine 12/31/21 Katrin Orellana PA-C [address] [place] [address] [phone] Physician Manager [facility] 12/31/21 Shanna Vang PA-C [address] [place] [address] [phone] Assigned Cancer Care Provider 01/10/22 Fransisco Eddy MD [address] [place] [phone] Assigned Rheumatology Provider 05/09/22 Cristina Hsieh [facility] [address] [place] [address] LISBETH HERNANDEZ [phone] Pharmacist Pharmacist 09/07/22 Alfreda Ray PA-C [address] [place] [address] [phone] Assigned PCP 08/29/22 Cristina Hsieh [facility] [address] [address] Assigned MTM Pharmacist 09/26/22 Dakota Tatum MD [address] [place] [address] [phone] Cardiovascular Disease 03/25/23 Dakota Tatum MD [address] [place] [address] [phone] Assigned Heart and Vascular Provider 05/01/23 [place] [address] [address], [address] [address] Assigned Musculoskeletal Provider 04/12/24
--- OUTSIDE RECORDS SUMMARY | 2024-06-22 23:06 | XMS_ITS ---
Author Organization [facility] alice (HIE interaction) Address [address], [place] [address] Care Team Providers Care Sludge Control Operator Name Role Phone Unavailable Unavailable Unavailable Allergies, Adverse Reactions, Alerts This patient has no known allergies or adverse reactions. Problems This patient has no known problems.
--- OUTSIDE RECORDS SUMMARY | 2024-06-22 23:06 | XMS_ITS | Continuity of Care Document ---
Author Name NwANOOP User [email or web address] Address Unknown Organization Unknown Address Unknown Procedures FILTER APPLIED:Only known Procedures with Onset Date within the last 5 years Procedure Date Procedure Provider Additional Inform ation Status NT PROBNP INPATIENT ([id number]) Completed Encounters FILTER APPLIED:Only known Encounters with Admission Date within the last 5 years Encounter Location Admission Discharge Billing Code Physician Locums Urgent Care Aby anand Outpatient [facility] Outpatient [facility] Outpatient [facility] Outpatient [facility] Outpatient [facility] Recurring Patient [facility] Emergency [facility] Outpatient [facility] Outpatient [facility] Outpatient [facility] Outpatient [facility] Outpatient [facility] Outpatient [facility] Outpatient [facility]
--- OUTSIDE RECORDS SUMMARY | 2024-06-22 23:06 | XMS_ITS | Clinical Summary ---
Author Organization [employer] [facility] Address [place], [place] [address] Care Team Providers Care Elderly Caregiver Name Role Phone Clinic, No Pcp Or Primary Care Provider Unavaila ble Allergies Active Allergy Reactions Criticality Noted Date Comments Codeine Nausea Only Low 08/11/2016 Other reaction(s): severe nausea Medications simvastatin (ZOCOR) 20 mg tablet Take 20 mg by mouth. 06/30/2016 Active traMADol (ULTRAM) 50 mg tablet Take 50 mg by mouth. 2017 Active DULoxetine (CYMBALTA) 20 mg Delayed-release capsule Take 1 Capsule by mouth once daily. 09/09/2021 Active gabapentin (NEURONTIN) 300 mg capsule Take 2 Capsules by mouth 3 times daily. 01/22/2021 Active temazepam (RESTORIL) 7.5 mg capsule Take every 3rd night at bedtime 11/13/2020 Active warfarin (COUMADIN) 2.5 mg tablet One tablet (2.5 mg) by mouth daily except take a half tablet (1.25 mg) Wednesday or as directed by INR Clinic 01/27/2022 Active atenoloL (TENORMIN) 25 mg tablet Take 1 Tablet by mouth once daily. 12/24/2021 Active lisinopril-hydr ochlorothiazide (10-12.5 mg) tablet (PRINZIDE; ZESTORETIC) Take 1 Tablet by mouth once daily. 12/27/2020 Active traZODone (DESYREL) 50 mg tablet Take 50 mg by mouth. 12/11/2020 Active hydrOXYchloroQU INE (PLAQUENIL) 200 mg tablet Take 200 mg by mouth. 08/04/2022 Active methotrexate (RHEUMATREX) 2.5 mg tablet Take 15 mg by mouth. 08/04/2022 Active methotrexate (RHEUMATREX) 2.5 mg tablet TAKE 15MG (6 TABLETS) WEEKLY. 08/04/2022 Active predniSONE (DELTASONE) 5 mg tablet Take 15mg (3 tablets) daily for 10 days, then 10 mg daily for 10 days. 08/26/2022 Active predniSONE (DELTASONE) 5 mg tablet TAKE 3 TABLETS BY MOUTH DAILY FOR 10 DAYS, THEN 2 TABLETS BY MOUTH DAILY FOR 10 DAYS. 08/26/2022 Active cyanocobalamin (VITAMIN B12) 1,000 mcg tablet Take 1,000 mcg by mouth once daily. 04/17/2022 Active cyanocobalamin (VITAMIN B12) 1,000 mcg tablet Take 1 Tablet by mouth once daily. 04/17/2022 Active acetaminophen (TYLENOL EXTRA STRGTH) 500 mg tablet Take 1,000 mg by mouth. 12/30/2021 Active Xarelto 10 mg tablet Take 10 mg by mouth once daily with a meal. 06/15/2022 Active rivaroxaban (XARELTO) 10 mg tablet Take 10 mg by mouth. 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 04/05/2017 Family History Medical History Relation Name Comments Other Brother Migraines Other Mother Migraines Genetic Other Cataracts Marissa r Relation Name Status Comments Brother Mother Other Social History Tobacco Use Types Packs/Day Years Used Date Smoking Tobacco: Former Cigarettes 1 5 0 06/21/1963 - 06/21/1968 Smokeless Tobacco: Former Comments:quit in 1968 Alcohol Use Standard Drinks/Week Comments Yes 0 (1 standard drink = 0.6 oz pur e alcohol) 1-2 drinks/month Comments No Sex and Gender Information Value Date Recorded Sex Assigned at Not on file Legal Sex Female 5:27 AM NICU RN Gender Identity Not on file Sexual Orientation Not on file Obstetrics History Last Filed Vital Signs Vital Sign Reading Time Taken Comments Blood Pressure 125/62 01/31/2019 10:24 AM CDT Pulse 66 01/31/2019 10:24 AM CDT Temperature 36.3 C (97.3 F) 04/29/2015 8:20 AM NICU RN Respiratory Rate 16 04/29/2015 8:45 AM NICU RN Oxygen Saturation 98% 04/29/2015 8:45 AM NICU RN Inhaled Oxygen Concentration - - Weight 61.7 kg (135 lb 15.3 oz) 015 12:42 AM NICU RN Height 160 cm (5' 3) 04/29/2015 6:24 AM NICU RN Body Mass Index 24.08 04/25/2015 12:42 AM NICU RN Plan of Treatment Health Maintenance Due Date Last Done Comments Tdap 1953 Depression screening for age 12+ 1954 BMI (ht and wt on same day) for age 18+ 1960 Tetanus booster 1962 Pneumococcal series for age 50+ (1 of 1 - PCV) 992 Zoster (shingles) series for age 50+ (1 of 2) 03/30/19 92 DEXA/DXA scan for age 65+ 2007 Medicare Wellness for age 65+ 2007 RSV vaccine for adults or pr egnancy (1 - 1-dose 75+ series) 2017 COVID-19 vaccine series ( season) 2022 Influenza for age 65+ 02/20/2024 Medical Devices Implanted Type Area Test Tech Device Identifier Shelf Expiration Date Model / Serial / Lot Lens Iol 21.5 Wf [id number]. 5 - [id number] Implanted:Qty: 1 on 04/15/2015 by David Garcia MD at [facility] Left: Eye [employer] 01/14/2020 [id number]. 5# / [id number] / Lens Iol 20.5 Wf [id number]. 5 - [id number] Implanted:Qty: 1 on 04/29/2015 by David Garcia MD at [facility] Right: Eye [employer] 01/19/2020 [id number]. 5# / [id number] / Insurance MEDICARE PART B HB ONLY MEDICA PRIME SOLUTION HB BLUE CROSS MEDICARE ADVANTAGE Advance Directives * Full Code (Latest Code Status on File) Date Activated Date Inactivated Comments 04/29/2015 6:11 AM 04/29/2015 11:13 AM * Full Code Date Activated Date Inactivated Comments 04/15/2015 7:54 AM 04/16/2015 2:13 AM * Full Code Date Activated Date Inactivated Comments 04/15/2015 6:17 AM 04/15/2015 7:54 AM Care Teams Elderly Caregiver Relationship Specialty Start Date End Date Clinic, No Pcp Or . PCP - General 02/26/22
--- OUTSIDE RECORDS SUMMARY | 2024-06-22 23:07 | XMS_ITS | Encounter Summary ---
Author Organization [facility] Address [address] [place] [address] Care Team Providers Care Security System Administrator Name Role Phone Alfreda Ray PA-C Primary Care Provider + Alfreda Ray PA-C Unavailable [phone] Katrin Orellana PA-C Unavailable [phone] Shanna Vang PA-C Unavailable [phone] Fransisco Eddy MD Unavailable [phone] Katrin Orellana PA-C Unavailable [phone] Cristina Hsieh [facility] Unavailable [phone] Alfreda Ray PA-C Unavailable [phone] Alfreda Ray PA-C Unavailable [phone] Cristina Hsieh [facility] Unavailable [phone] Dakota Tatum MD Unavailable + [phone] Dakota Tatum MD Unavailable [phone] Srinivas Marie DO Unavailable [phone] Encounter Details Date Type Department Care Team (Late st Contact Info) Description 08/11/2023 MyC Medical Advice [facility] [address] [place] [phone] Gruendemann, Lecora Social History Tobacco Use Types Packs/Day Years Used Date Smoking Tobacco: Former Cigarettes 1 5 0 06/21/1963 - 06/21/1968 Smokeless Tobacco: Never Comments:not a smoker Alcohol Use Standard Drinks/Week Comments Yes 0 (1 standard drink = 0.6 oz pur e alcohol) rare 1 monthly PHQ-2 Answer Date Recorded PHQ-2 Score 0 03/10/2023 Adolescent Education Answer Date Record ed Getting School Help Needed Not on file 03/12 Food Insecurity Answer Date Recorded Within the past 12 months, d id you worry that your food would run out before you got money to buy more? No 05/18/2023 Within the past 12 months, d id the food you bought just not last and you didn t have money to get more? No 05/18/2023 Housing Stability Answer Date Recorded Do you have housing? (Kasey gibbs is defined as stable permanent housing and does not include staying ouside in a car, in a tent, in an abandoned building, in an overnight jail, or couch-surfing.) Yes 05/18/2023 Are you worried about losing your housing? No 05/18/2023 Financial Resource Strain Answer Date R ecorded Within the past 12 months, h ave you or your family members you live with been unable to get utilities (heat, electricity) when it was really needed? No 05/18/2023 Transportation Needs Answer Date Record ed Within the past 12 months, h as lack of transportation kept you from medical appointments, getting your medicines, non-medical meetings or appointments, work, or from getting things that you need? No 05/18/2023 Interpersonal Safety Answer Date Record ed Do you feel physically and e motionally safe where you currently live? Yes 03/10/2023 Within the past 12 months, h ave you been hit, slapped, kicked or otherwise physically hurt by someone? No 03/10/2023 Within the past 12 months, h ave you been humiliated or emotionally abused in other ways by your partner or ex-partner? No 03/10/2023 Comments No Sex and Gender Information Value Date Recorded Sex Assigned at Female 08/17/2018 7:56 AM MILL HAND Legal Sex Female 4:24 AM MILL HAND Gender Identity Female 08/17/2018 7:56 AM MILL HAND Sexual Orientation Straight 08/17/2018 7: 56 AM MILL HAND documented as of this encounter Plan of Treatment Upcoming Encounters Date Type Department Care Team (Late st Contact Info) Description 09/07/2024 10:00 AM CDT Office Visit [facility] [address] [place] [phone] Fransisco Eddy MD [address] [facility] [address] [place], [place] [phone] 03/29/2025 3:40 PM CDT Office Visit [address] [phone] Alfreda Ray PA-C [address] [place] [address] [phone] documented as of this encounter Visit Diagnoses Not on filedocumented in this encounter Additional Health Concerns Assessment Noted Time PHQ-9 Depression Total Score: 5 03/09/20 23 10:57 AM CDT documented as of this encounter Care Teams Security System Administrator Relationship Specialty Start Date End Date Alfreda Ray PA-C [address] [place] [address] [phone] PCP - General Family Medicine 12/30/21 Alfreda Ray PA-C [address] [place] [address] Referring Physician Family Medicine 12/31/21 Katrin Orellana PA-C [address] [place] [address] 98 [place], [place] [phone] Physician Server Administrator Dermatology 12/31/21 Shanna Vang PA-C [facility] [place] [address] [phone] Assigned Cancer Care Provider 01/10/22 Fransisco Eddy MD [address] [place] [address] [address] [place] [address] Assigned Rheumatology Provider 05/09/22 Katrin Orellana PA-C [address] [place] [address] [phone] Assigned Surgical Provider 08/15/22 02/10/24 Cristina Hsieh [facility] [address] [place] [address] [place] [address] Pharmacist Pharmacist 09/07/22 Alfreda Ray PA-C [address] [place] [address] Assigned Pain Medication Provider 09/05/22 09/10/23 Alfreda Ray PA-C [address] [place] [address] [phone] Assigned PCP 08/29/22 Cristina Hsieh [facility] [address] [place] [address] Assigned MTM Pharmacist 09/26/22 Dakota Tatum MD [address] [place] [address] [phone] Cardiovascular Disease 03/25/23 Dakota Tatum MD [address] [place] [address] Assigned Heart and Vascular Provider 05/01/23 [place] [address] [address], [address] [phone] Assigned Musculoskeletal Provider 04/12/24 documented as of this encounter
--- OUTSIDE RECORDS SUMMARY | 2024-06-22 23:07 | XMS_ITS | Encounter Summary ---
Author Organization [facility] Address [address] [place] [address] Care Team Providers Care Automatic Spooler Operator Name Role Phone Alfreda Ray PA-C Primary Care Provider + Alfreda Ray PA-C Unavailable [phone] Katrin Orellana PA-C Unavailable [phone] Shanna Vang PA-C Unavailable [phone] Fransisco Eddy MD Unavailable [phone] Katrin Orellana PA-C Unavailable [phone] Cristina Hsieh [facility] Unavailable [phone] Alfreda Ray PA-C Unavailable + [phone] Alfreda Ray PA-C Unavailable [phone] Cristina Hsieh [facility] Unavailable [phone] Dakota Tatum MD Unavailable + [phone] Dakota Tatum MD Unavailable [phone] Srinivas Marie DO Unavailable Reason for Visit * Reason Comments Medication Refill METHOTREXATE 50 MG/2 ML VIAL Encounter Details Date Type Department Care Team (Late st Contact Info) Description 06/20/2023 Refill [facility] Specialty [address] [phone] Fransisco Eddy MD [address] [place] [address] [phone] Medication Refill (METHOTREXATE 50 MG/2 ML VIAL) Social History Tobacco Use Types Packs/Day Years [...] in an abandoned building, in an overnight alf, or couch-surfing.) Yes 05/18/2023 Are you worried [...] Sex Assigned at Female 08/17/2018 7:56 AM TELEPHONE OPERATOR Legal Sex Female 4:24 AM TELEPHONE OPERATOR Gender Identity Female 08/17/2018 7:56 AM TELEPHONE OPERATOR Sexual Orientation Straight 08/17/2018 7: 56 AM TELEPHONE OPERATOR documented as of this encounter Miscellaneous Notes * Telephone Encounter - Fransisco Eddy MD - 06/25/2023 5:14 PM TELEPHONE OPERATOR Apologize for confusion engendered by last note and clinic visit. I expected methotrexate to have been discontinued now that patient is receiving Actemra. PHONE OPERATOR * Telephone Encounter - Lynne Levy RN - 06/25/2023 1:34 PM CST METHOTREXATE 50 MG/2 ML VIAL Last Written Prescription Date: not on active med list Discontinued Therapy completed (No AVS) Cristina Hsieh, [facility] 03/04/23 1338 Last Office Visit: 06-17-23 Future Office visit: 09-23-23 Last clinic note 06-17-23 :pt instructions Diagnosis: 1. Rheumatoid arthritis, prednisone sensitive and rheumatoid factor positive: Symptoms have improved with prednisone several times. Humira, methotrexate, and hydroxychloroquine have not given relief despite adequate trials of therapy. I recommend discontinuing Humira and starting Actemra. 2. Osteoarthritis, hands, knees, toes, and feet: Make a trial of 1% Voltaren gel used up to 4 timesdaily at points of maximum joint pain. Plan: 1. Start Actemra 162 mg injected subcutaneously every 2 weeks. 2. Stop Humira and hydroxychloroquine. 3. Prednisone 5 mg daily until 2 doses of Actemra have been given. Then taper by 1 mg every 2 weeksuntil off. Continue tapering by 1 mg each week until off or until symptoms recur. 4. Continue calcium carbonate 600 mill equivalents twice daily, and vitamin D 800 international units daily while taking prednisone. 5. Check TSH and urinalysis; avoid nonsteroidals, including topical 1% Voltaren gel due to concern about kidney disease. CBC RESULTS: Recent Labs Lab Test 06/22/23 1603 WBC 6.9 RBC 3.90 HGB 12.3 HCT 37.6 MCV 96 MCH 31.5 MCHC 32.7 RDW 12.4 PLT 236 Creatinine Date Value Ref Range Status 06/22/2023 1.10 (H) 0.51 - 0.95 mg/dL Final 05/28/2020 0.94 0.52 - 1.04 mg/dL Final ] Liver Function Studies - Recent Labs Lab Test 06/22/23 1603 PROTTOTAL 6.1* ALBUMIN 4.1 BILITOTAL 0.4 ALKPHOS 73 AST 21 ALT 14 Routing refill request to provider for review/approval because: Rx discontinue by other provider, No documentation of discontinue med found in note. PHONE OPERATOR documented in this encounter Plan of Treatment Upcoming Encounters Date Type Department Care Team (Late st Contact Info) Description 09/07/2024 10:00 AM CDT Office Visit [address] [phone] Fransisco Eddy MD [address] [place] [address] [phone] 03/29/2025 3:40 PM CDT Office Visit [address] [phone] Alfreda Ray PA-C [address] [place] [address] documented as of this encounter Visit Diagnoses Not on filedocumented in this encounter Additional Health Concerns Assessment Noted Time PHQ-9 Depression Total Score: 5 03/09/20 23 10:57 AM CDT documented as of this encounter Care Teams Automatic Spooler Operator Relationship Specialty Start Date End Date Alfreda Ray PA-C [address] [place] [address] [phone] PCP - General Family Medicine 12/30/21 Alfreda Ray PA-C [address] [place] [address] Referring Physician Family Medicine 12/31/21 Katrin Orellana PA-C [address] [place] [address] [phone] Physician Quality Assurance Qa Lab Analyst Dermatology 12/31/21 Shanna Vang PA-C [address] [place] [address] [phone] Assigned Cancer Care Provider 01/10/22 Fransisco Eddy MD [address] [place] [address] [phone] Assigned Rheumatology Provider 05/09/22 Katrin Orellana PA-C [address] [place] [address] [phone] Assigned Surgical Provider 08/15/22 02/10/24 Cristina Hsieh, [facility] [address] [place] [address] LISBETH HERNANDEZ [phone] Pharmacist Pharmacist 09/07/22 Alfreda Ray PA-C [address] [place] [address]85 Assigned Pain Medication Provider 09/05/22 09/10/23 Alfreda Ray PA-C [address] [place] [address] 35833 Assigned PCP 08/29/22 Cristina Hsieh, [facility] [address] [facility] [address] [place] [address] Assigned MTM Pharmacist 09/26/22 Dakota Tatum MD [address] [place] [address] [phone] Cardiovascular Disease 03/25/23 Dakota Tatum MD [address] [place] [address] [phone] Assigned Heart and Vascular Provider 05/01/23 [place] [address] [address], [facility] [address] [place] [address] Assigned Musculoskeletal Provider 04/12/24 documented as of this encounter
--- OUTSIDE RECORDS SUMMARY | 2024-06-22 23:07 | XMS_ITS | Encounter Summary ---
Author Organization [facility] Address [address] [place] [address] Care Team Providers Care President Ceo & Founder Name Role Phone Alfreda Ray PA-C Primary Care Provider + Alfreda Ray PA-C Unavailable [phone] Katrin Orellana PA-C Unavailable Shanna Vang-Gallito Unavailable +[phone] Fransisco Eddy MD Unavailable Cristina Hsieh [facility] Unavailable Alfreda Ray PA-C Unavailable [phone] Cristina Hsieh [facility] Unavailable Dakota Tatum MD Unavailable [phone] Dakota Tatum MD Unavailable [phone] Srinivas Marie DO Unavailable [phone] Reason for Visit * Reason Comments Medication Therapy Management Encounter Details Date Type Department Care Team (Latest Contact Info) Description 06/02/2024 10:30 AM PHYSICAL THERAPY AIDES TEACHER Virtual Visit [facility] Rheumatology [facility] [address] [address] Fransisco Eddy MD [address] [place] [address] Cristina Hsieh, [facility] [address] [facility] [address] [place] [address] Rheumatoid arthritis involving multiple sites with positive rheumatoid factor (H) (Primary Dx); Primary osteoarthritis involving multiple joints; Severe obesity (BMI 35.0-39.9) with comorbidity (H) - prediabetes, hypertension Social History Tobacco Use Types Packs/Day Years Used Date Smoking Tobacco: Former Cigarettes 1 5 0 06/21/1963 - 06/21/1968 Passive Smoke Exposure: Past Smokeless Tobacco: Never Comments:not a smoker Alcohol Use Standard Drinks/Week Comments Yes 0 (1 standard drink = 0.6 oz pur e alcohol) rare 1 monthly Social Connection and Isolation Panel [NHANES] A nswer Date Recorded Frequency of Communication with Friends and Fami ly Not on file 03/15/2024 How often do you get together with friends or re latives? Once a week 03/15/2024 Attends [employer]ism Services Not on file 03/15 Active Member of Clubs or Organizations Not on f ile 03/15/2024 Attends Club or Organization Meetings Not on anu e 03/15/2024 Marital Status Not on file 03/15/2024 PHQ-2 Answer Date Recorded PHQ-2 Score 0 03/16/2024 [facility] [employer] of Occupat ional Health - Occupational Stress [...] in an abandoned building, in an overnight skilled nursing, or couch-surfing.) Yes 03/15/2024 Are you worried [...] Sex Assigned at Female 08/17/2018 7:56 AM PHYSICAL THERAPY AIDES TEACHER Legal Sex Female 4:24 AM PHYSICAL THERAPY AIDES TEACHER Gender Identity Female 08/17/2018 7:56 AM PHYSICAL THERAPY AIDES TEACHER Sexual Orientation Straight 08/17/2018 7: 56 AM PHYSICAL THERAPY AIDES TEACHER documented as of this encounter Patient Instructions * Patient Instructions* Cristina Hsieh, [facility] - 06/02/2024 10:30 AM PHYSICAL THERAPY AIDES TEACHER Recommendations from today's MTM visit: 1. Restart prednisone 3 mg daily and follow taper of decreasing 1 mg every 15 days. Once you get to1 mg daily remain on this dose until your next visit with Dr. Eddy. 2. I will message Alfreda Ray's office and let them know about your recurrent cold sore concerns. Follow-up: Return in about 3 months (around 08/31/2024) for MTM Pharmacist Visit. It was great speaking with you today. I value your experience and would be very thankful for your time in providing feedback in our clinic survey. In the next few days, you may receive an email or text message from [employer] with a link to a survey related to your ???clinical pharmacist. To schedule another MTM appointment, please call the clinic directly or you may call the MTM scheduling line at [phone]. My Clinical Pharmacist's contact information: Please feel free to contact me with any questions or concerns you have. Cristina Hsieh, [facility] Medication Therapy Management Pharmacist [facility] ICAL THERAPY AIDES TEACHER documented in this encounter Progress Notes * Cristina Hsieh [facility] - 06/02/2024 10:30 AM CST Medication Therapy Management (MTM) Encounter ASSESSMENT: Medication Adherence/Access: No issues identified. Rheumatoid Arthritis/Osteoarthritis: Reviewed recommended prednisone taper from last rheumatology visit of decreasing 1 mg every 15 days. Possible patient's current symptoms were worsened by taperingprednisone too quickly and not as recommended. Discussed attempting taper as scheduled to improve symptoms. Recommend restarting prednisone 3 mg daily and decreasing by 1 mg every 15 days then remaining on 1 mg daily until next rheumatology visit. Will message PCP to determine best option to treat current cold sore symptoms. Obesity: Encouraged patient to continue naltrexone therapy for at least 3 months to determine efficacy. PLAN: 1. Restart prednisone 3 mg daily and follow taper of decreasing 1 mg every 15 days. Once you get to1 mg daily remain on this dose until your next visit with Dr. Eddy. 2. I will message Alfreda Ray's office and let them know about your recurrent cold sore concerns. Follow-up: Return in about 3 months (around 08/31/2024) for MTM Pharmacist Visit. SUBJECTIVE/OBJECTIVE: Alexandria Bradshaw is a 84 year old female seen for a follow-up visit. Reason for visit: Questions about prednisone taper, continued recurrent cold sores Allergies/ADRs: Reviewed in chart Past Medical History: Reviewed in chart Tobacco: She reports that she quit smoking about 56 years ago. Her smoking use included cigarettes.She started smoking about 61 years ago. She has a 5 pack- year smoking history. She has been exposedto tobacco smoke. She has never used smokeless tobacco. Alcohol: Less than 1 beverages / week Medication Adherence/Access: no issues reported. Rheumatoid Arthritis/Osteoarthritis: Rinvoq 15 mg daily Prednisone 1 mg daily Acetaminophen 1000 mg three times daily Reports she has been on prednisone 1 mg daily for a few days and has noticed a significant increasein joint pain. Finding it difficult to get out of bed due to pain and stiffness, notes walking has become difficult as hip is very bothersome. No side effects noted. Has been decreasing prednisone dose from 4 mg to 1 mg - decreases 1 mg per week. Wondering what to do since her pain has returned. Also having bothersome cold sore that keep recurring. Currently has one bad sore on the outside of [facility] and two on the inside. Has also had bunches of small cold sores however those have resolved currently. Per 05/04/24 rheumatology visit: Taper prednisone again: Reduce to 4 mg daily now, on May 21 reduced to 3 mg daily; on June 04, reduce to 2 mg daily, and on June 21 reduce to 1 mg daily. Continue 1 mg daily until follow-up. CBC RESULTS: Recent Labs Lab Test 03/16/24 1509 WBC 6.5 RBC 3.50* HGB 11.7 HCT 35.3 MCV 101* MCH 33.4* MCHC 33.1 RDW 13.9 PLT 304 Liver Function Studies - Recent Labs Lab Test 03/16/24 1509 PROTTOTAL 6.7 ALBUMIN 4.5 BILITOTAL 0.5 ALKPHOS 44 AST 19 ALT 15 Obesity: Naltrexone 50 mg daily Reports she has had significant weight gain after having to be on prednisone for management of RA symptoms. Started naltrexone in early Mar and initially had upset stomach, diarrhea, and fatigue. Determined this was due to an underlying illness as symptoms persisted after discontinuing medication. Started again in early Apr and has no noted side effects. Has not noticed any weight loss yet. Wt Readings from Last 4 Encounters: 05/04/24 208 lb 8 oz (94.6 kg) 03/27/24 201 lb (91.2 kg) 03/16/24 201 lb 9.6 oz (91.4 kg) 02/09/24 190 lb (86.2 kg) Today's Vitals: LMP (LMP Unknown) I spent 27 minutes with this patient today. All changes were made via collaborative practice agreement with Fransisco Eddy MD. A summary of these recommendations was sent via [employer]. Cristina Hsieh, MoiD Medication Therapy Management Pharmacist [facility] Telemedicine Visit Details The patient's medications can be safely assessed via a telemedicine encounter. Type of service: Telephone visit Originating Location (pt. Location): Home Distant Location (provider location): On-site Start Time: 10:30 AM End Time: 10:57 AM Medication Therapy Recommendations Rheumatoid arthritis involving multiple sites with positive rheumatoid factor (H) 1 Current Medication: predniSONE (DELTASONE) 1 MG tablet Current Medication Sig: Take 4 tablets daily, taper per Rationale: Dosage increase/decrease too fast - Adverse medication event - Safety Recommendation: Increase Ordered Duration of Medication - 3 mg daily x 15 days then 2 mg daily x 15days then 1 mg daily until follow up Status: Accepted per CPA Identified Date: 06/02/2024 Completed Date: 06/02/2024 ICAL THERAPY AIDES TEACHER documented in this encounter Plan of Treatment Upcoming Encounters Date Type Department Care Team (Late st Contact Info) Description 09/07/2024 10:00 AM CDT Office Visit [facility] [address] [phone] Fransisco Eddy MD [address] [place] [address] [phone] 03/29/2025 3:40 PM CDT Office Visit [address] [phone] Alfreda Ray PA-C [address] [place] [address] [phone] documented as of this encounter Visit Diagnoses Diagnosis 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 Severe obesity (BMI 35.0-39.9) with comorbidity (H) - prediabetes, hypertension documented in this encounter Additional Health Concerns Assessment Noted Time PHQ-9 Depression Total Score: 5 03/09/20 23 10:57 AM CDT documented as of this encounter Care Teams President Ceo & Founder Relationship Specialty Start Date End Date Alfreda Ray PA-C [address] [place] [address] PCP - General Family Medicine 12/30/21 Alfreda Ray PA-C [address] [place] [address] Referring Physician Family Medicine 12/31/21 Katrin Orellana PA-C [address] [place] [address] [address] [place] [address] Physician Library Clerk Dermatology 12/31/21 Shanna Vang PA-C [address] [place] [address] [phone] Assigned Cancer Care Provider 01/10/22 Fransisco Eddy MD [address] [place] [address] [phone] Assigned Rheumatology Provider 05/09/22 Cristina Hseih [facility] [address] [facility] [place] [address] Pharmacist Pharmacist 09/07/22 Alfreda Ray PA-C [address] [place] [address] Assigned PCP 08/29/22 Cristina Hsieh [facility] 1600 [facility] [address] [place] [address] Assigned MTM Pharmacist 09/26/22 Dakota Tatum MD [address] [place] [address] Cardiovascular Disease 03/25/23 Dakota Tatum MD [address] [place] [address] [phone] Assigned Heart and Vascular Provider 05/01/23 [place] [address] [address], [facility] [address] [place] [address] Assigned Musculoskeletal Provider 04/12/24 documented as of this encounter
--- OUTSIDE RECORDS SUMMARY | 2024-06-22 23:07 | XMS_ITS | Encounter Summary ---
Author Organization [facility] Address [address] [place] [address] Care Team Providers Care Regional Office Coordinator Name Role Phone Alfreda Ray PA-C Primary Care Provider + Alfreda Ray PA-C Unavailable [phone] Katrin Orellana PA-C Unavailable [phone] Shanna Vang PA-C Unavailable [phone] Fransisco Eddy MD Unavailable [phone] Katrin Orellana PA-C Unavailable [phone] Cristina Hsieh [facility] Unavailable [phone] Alfreda Ray PA-C Unavailable + [phone] Alfreda Ray PA-C Unavailable + [phone] Cristina Hsieh [facility] Unavailable [phone] Dakota Tatum MD Unavailable + [phone] Dakota Tatum MD Unavailable + [phone] Srinivas Marie DO Unavailable Encounter Details Date Type Department Care Team (Late st Contact Info) Description 06/11/2023 [facility] Specialty [address] [phone] Gloria Harper, RN Social History Tobacco Use Types Packs/Day Years [...] in an abandoned building, in an overnight group home, or couch-surfing.) Yes 05/18/2023 Are you worried [...] Sex Assigned at Female 08/17/2018 7:56 AM SYSTEMS LIBRARIAN Legal Sex Female 4:24 AM SYSTEMS LIBRARIAN Gender Identity Female 08/17/2018 7:56 AM SYSTEMS LIBRARIAN Sexual Orientation Straight 08/17/2018 7: 56 AM SYSTEMS LIBRARIAN documented as of this encounter Plan of Treatment Upcoming Encounters Date Type Department Care Team (Late st Contact Info) Description 09/07/2024 10:00 AM CDT Office Visit [facility] [address] [place] [phone] Fransisco Eddy MD [address] [place] [address] [address] [place] [address] 03/29/2025 3:40 PM CDT Office Visit [address] [phone] Alfreda Ray PA-C [address] [place] [address] 049602 documented as of this encounter Visit Diagnoses Not on filedocumented in this encounter Additional Health Concerns Assessment Noted Time PHQ-9 Depression Total Score: 5 03/09/20 23 10:57 AM CDT documented as of this encounter Care Teams Regional Office Coordinator Relationship Specialty Start Date End Date Alfreda Ray PA-C [address] [place] [address] PCP - General Family Medicine 12/30/21 Alfreda Ray PA-C [address] [place] [address] Referring Physician Family Medicine 12/31/21 Katrin Orellana PA-C [address] [place] [address] 98 [place] [address] Physician Fws Faculty Assistant Dermatology 12/31/21 Shanna Vang PA-C [address] [place] [address] Assigned Cancer Care Provider 01/10/22 Fransisco Eddy MD [address] [place] [address] [address] [place] [address] Assigned Rheumatology Provider 05/09/22 Katrin Orellana PA-C [address] [place] [place] [address] 98 [place] [address] Assigned Surgical Provider 08/15/22 02/10/24 Cristina Hsieh [facility] [address] [place] [address] [place] [address] Pharmacist Pharmacist 09/07/22 Alfreda Ray PA-C [address] [place] [address] Assigned Pain Medication Provider 09/05/22 09/10/23 Alfreda Ray PA-C [address] [place] [address] Assigned PCP 08/29/22 Cristina Hsieh [facility] [address] [place] [address] Assigned MTM Pharmacist 09/26/22 Dakota Tatum MD [address] [place] [address] [phone] Cardiovascular Disease 03/25/23 Dakota Tatum MD [address] [place] [address] [phone] Assigned Heart and Vascular Provider 05/01/23 [place] [address] [address], [address] [phone] Assigned Musculoskeletal Provider 04/12/24 documented as of this encounter
--- OUTSIDE RECORDS SUMMARY | 2024-06-22 23:07 | XMS_ITS | Encounter Summary ---
Author Organization [facility] Address [address] [place] [address] Care Team Providers Care Chinese Instructor Name Role Phone Alfreda Ray PA-C Primary Care Provider + Alfreda Ray PA-C Unavailable [phone] Katrin Orellana PA-C Unavailable [phone] Shanna Vang PA-C Unavailable [phone] Fransisco Eddy MD Unavailable [phone] Katrin Orellana PA-C Unavailable [phone] Cristina Hsieh [facility] Unavailable [phone] Alfreda Ray PA-C Unavailable + [phone] Alfreda Ray PA-C Unavailable + [phone] Cristina Hsieh [facility] Unavailable [phone] Dakota Tatum MD Unavailable [phone] Dakota Tatum MD Unavailable + [phone] Srinivas Marie DO Unavailable [phone] Encounter Details Date Type Department Care Team (Late st Contact Info) Description 09/09/2023 Migdalia [facility] [address] [place] [address] Shanna Vang PA-C [address] [place] [address] Social History Tobacco Use Types Packs/Day Years [...] in an abandoned building, in an overnight intermediate, or couch-surfing.) Yes 05/18/2023 Are you worried [...] Sex Assigned at Female 08/17/2018 7:56 AM REVOLVING FIELD ASSEMBLER Legal Sex Female 4:24 AM REVOLVING FIELD ASSEMBLER Gender Identity Female 08/17/2018 7:56 AM REVOLVING FIELD ASSEMBLER Sexual Orientation Straight 08/17/2018 7: 56 AM REVOLVING FIELD ASSEMBLER documented as of this encounter Plan of Treatment Upcoming Encounters Date Type Department Care Team (Late st Contact Info) Description 09/07/2024 10:00 AM CDT Office Visit [facility] [address] [place] [phone] Fransisco Eddy MD [address] [facility] [address] [place] [address] 03/29/2025 3:40 PM CDT Office Visit [address] [phone] Alfreda Rya PA-C [address] [place] [address] documented as of this encounter Visit Diagnoses Not on filedocumented in this encounter Additional Health Concerns Assessment Noted Time PHQ-9 Depression Total Score: 5 03/09/20 23 10:57 AM CDT documented as of this encounter Care Teams Chinese Instructor Relationship Specialty Start Date End Date Alfreda Ray PA-C [address] [place] [address] PCP - General Family Medicine 12/30/21 Alfreda Ray PA-C [address] [place] [address] Referring Physician Family Medicine 12/31/21 Katrin Orellana PA-C [address] [place] [address] 98 [place] [address] Physician Radial Drill Operator Dermatology 12/31/21 Shanna Vang PA-C [address] [place] [address] Assigned Cancer Care Provider 01/10/22 Fransisco Eddy MD [address] [place] [address] 88 [place] [address] Assigned Rheumatology Provider 05/09/22 Katrin Orellana PA-C [address] [place] [address] 98 [place], [place] 956[address] Assigned Surgical Provider 08/15/22 02/10/24 Cristina Hsieh [facility] [address] [facility] [place] [address] Pharmacist Pharmacist 09/07/22 Alfreda Ray PA-C [address] [place] [address] [phone] Assigned Pain Medication Provider 09/05/22 09/10/23 Alfreda Ray PA-C [address] [place] [address] Assigned PCP 08/29/22 Cristina Hsieh [facility] [address] [phone] Assigned MTM Pharmacist 09/26/22 Dakota Tatum MD [address] [place] [address] Cardiovascular Disease 03/25/23 Dakota Tatum MD [address] [place] [address] Assigned Heart and Vascular Provider 05/01/23 [place] [address] [address], [address] [address] Assigned Musculoskeletal Provider 04/12/24 documented as of this encounter
--- OUTSIDE RECORDS SUMMARY | 2024-06-22 23:07 | XMS_ITS | Referral Summary ---
Author Organization [facility] Address [address] [place] [address]. [place] [address] Care Team Providers Care Lockstitch Hemmer Name Role Phone Alfreda Ray PA-C Primary Care Provider + Alfreda Ray PA-C Unavailable [phone] Katrin Orellana PA-C Unavailable Shanna Vang PA-C Unavailable [phone] Fransisco Eddy MD Unavailable [phone] Cristina Hsieh [facility] Unavailable Alfreda Ray PA-C Unavailable [phone] Cristina Hsieh [facility] Unavailable Dakota Tatum MD Unavailable [phone] Dakota Tatum MD Unavailable [phone] Srinivas Marie DO Unavailable [phone] Encounters Date Type Department Care Team Description 06/17/2024 Orders Only [address] [phone] Yamile James PA-C Complicated UTI (urinary tract infection) (Primary Dx) 06/15/2024 Travel 06/15/2024 2:05 PM MACHINE REPAIRER MAINTENANCE Office Visit [facility] [place] [address] [place] [phone] Yamile James PA-C Complicated UTI (urinary tract infection) (Primary Dx); Dysuria; Flank pain 06/07/2024 MyC Medical Advice [address] [phone] Alfreda Ray PA-C 06/07/2024 3:40 PM MACHINE REPAIRER MAINTENANCE E-Visit [address] [phone] Alfreda Ray PA-C Derm Problem (Entered automatically based ... 06/06/[address] [phone] Alfreda Ray PA-C 06/02/2024 10:30 AM MACHINE REPAIRER MAINTENANCE Virtual Visit [facility] Rheumatology [address] [phone] Fransisco Eddy MD [facility] Rheumatoid arthritis involving multiple sites with positive rheumatoid factor (H) (Primary Dx); Primary osteoarthritis involving multiple joints; Severe obesity (BMI 35.0-39.9) with comorbidity (H) - prediabetes, hypertension 05/04/2024 Travel 05/04/2024 12:30 PM MACHINE REPAIRER MAINTENANCE Office Visit [facility] Specialty Clinic [address] [phone] Fransisco Eddy MD Polyarthralgia (Primary Dx) 05/01/2024 Travel 04/30/2024 MyC Medical Advice [address] [phone] Alfreda Ray PA-C Urinary Problem 04/03/2024 Refill [facility] Rheumatology [address] [phone] Fransisco Eddy MD Medication Refill 2024 Telephone [facility] Rheumatology [facility] [address] [facility] 3rd [place] [address] Cristina Hsieh, [facility] 03/27/2024 Travel 03/27/2024 2:20 PM CDT Office Visit [facility] Sports Medicine [facility] [place] [address] [facility] [address] [place] [address] Alfreda Ray PA-C Sheehan, Andrew, DO Chronic right-sided low back pain without sciatica (Primary Dx); 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 Fransisco Eddy @ of - on Humira & hydroxychloroquine 08/27/2022 Family [...] Total Score(s): No flowsheet data found. Last [facility] website verification: Done 09/25/2019 [email or web address]/ Anxiety 04/13/2014 12/30/2021 HTN, goal below 140/90 [...] Reviewed chart for advance care plan. Alexandria Bradshaw has been provided information and resources [...] updated by automated process. Provider to review Immunizations Name Administration Dates Next Due COVID-19 12+ (MODERNA) 05/03/2023 COVID-19 12+ (Pfizer) 03/16/2024 COVID-19 MONOVALENT 12+ (Pfizer) 03/19/2021,0310/2020,08/02/2020 COVID-19 Monovalent 12+ (Pfizer 2021) 09/29/2021 Flu, [...] d (SHINGRIX) 02/23/2019,08/19/2018 Zoster vaccine, live 08/13/2015 Social History Tobacco Use Types Packs/Day Years [...] re latives? Once a week 03/15/2024 Attends [employer] Services Not on file 03/15 Active Member of Clubs or Organizations Not on f ile 03/15/2024 Attends Club or Organization Meetings Not on anu e 03/15/2024 Marital Status Not on file 03/15/2024 PHQ-2 Answer Date Recorded PHQ-2 Score 0 03/16/2024 [facility] [place] of Occupat ional Health - Occupational Stress [...] in an abandoned building, in an overnight senior care, or couch-surfing.) Yes 03/15/2024 Are you worried [...] Sex Assigned at Female 08/17/2018 7:56 AM MACHINE REPAIRER MAINTENANCE Legal Sex Female 4:24 AM MACHINE REPAIRER MAINTENANCE Gender Identity Female 08/17/2018 7:56 AM MACHINE REPAIRER MAINTENANCE Sexual Orientation Straight 08/17/2018 7 :56 AM MACHINE REPAIRER MAINTENANCE Last Filed Vital Signs Vital Sign Reading Time Taken Comments Blood Pressure 136/70 06/15/2024 6:10 PM MACHINE REPAIRER MAINTENANCE Pulse 64 06/15/2024 4:35 PM MACHINE REPAIRER MAINTENANCE Temperature 36.8 C (98.2 F) 06/15/2024 4:35 PM MACHINE REPAIRER MAINTENANCE Respiratory Rate 18 06/15/2024 4:35 PM MACHINE REPAIRER MAINTENANCE Oxygen Saturation 97% 06/15/2024 4:35 PM MACHINE REPAIRER MAINTENANCE Inhaled Oxygen Concentration - - Weight 94.3 kg (208 lb) 06/15/2024 4:35 PM MACHINE REPAIRER MAINTENANCE Height 157.5 cm (5' 2) 05/04/2024 12:20 PM MACHINE REPAIRER MAINTENANCE Body Mass Index 38.04 05/04/2024 12:20 PM MACHINE REPAIRER MAINTENANCE Plan of Treatment Upcoming Encounters Date Type Department Care Team (Late st Contact Info) Description 09/07/2024 10:00 AM CDT Office Visit [facility] [address] [place] [address] Fransisco Eddy MD [address] [place] [address] [phone] 03/29/2025 3:40 PM CDT Office Visit [address] [phone] Alfreda aRy PA-C [address] [place] [address] [phone] Procedures Procedure Name Priority Date/Time Associated Diagnosis Comments CBC WITH PLATELETS & DIFFERENTIAL STAT 06/15/2024 5:14 PM MACHINE REPAIRER MAINTENANCE Flank pain CBC WITH PLATELETS AND DIFFERENTIAL STAT 06/15/2024 5:14 PM MACHINE REPAIRER MAINTENANCE Flank pain BASIC METABOLIC PANEL STAT 06/15/2024 5:14 PM MACHINE REPAIRER MAINTENANCE Flank pain CRP INFLAMMATION STAT 06/15/2024 5:14 PM MACHINE REPAIRER MAINTENANCE Flank pain URINE CULTURE Routine 06/15/2024 2:15 PM MACHINE REPAIRER MAINTENANCE Dysuria URINE MICROSCOPIC EXAM Routine 06/15/2024 2:15 PM MACHINE REPAIRER MAINTENANCE Dysuria UA MACROSCOPIC WITH REFLEX TO MICRO AND CULTURE Routine 06/15/2024 2:15 PM MACHINE REPAIRER MAINTENANCE Dysuria ALBUMIN RANDOM URINE QUANTITATIVE Routine 03/16/2024 [...] COLONOSCOPY - HIM SCAN 08/26/2015 12:00 AM MACHINE REPAIRER MAINTENANCE from Last 3 Months or Most Recently Relevant to Health Maintenance Results * (ABNORMAL) CBC with platelets and differential (06/15/2024 5:14 PM MACHINE REPAIRER MAINTENANCE) WBC Count 5.3 4.0 - 11.0 10e3/uL 06/15/2024 5:37 PM MACHINE REPAIRER MAINTENANCE [facility] RBC Count 3.23(L) 3.80 - 5.20 10e6/uL 06/15/2024 5:37 PM MACHINE REPAIRER MAINTENANCE [facility] Hemoglobin 10.9(L) 11.7 - 15.7 g/dL 06/15/2024 5:37 PM MACHINE REPAIRER MAINTENANCE [facility] Hematocrit 34.2(L) 35.0 - 47.0 % 06/15/2024 5:37 PM MACHINE REPAIRER MAINTENANCE [facility] MCV 106(H) 78 - 100 fL 06/15/2024 5:37 PM MACHINE REPAIRER MAINTENANCE [facility] MCH 33.7(H) 26.5 - 33.0 pg 06/15/2024 5:37 PM MACHINE REPAIRER MAINTENANCE [facility] MCHC 31.9 31.5 - 36.5 g/dL 06/15/2024 5:37 PM MACHINE REPAIRER MAINTENANCE [facility] RDW 13.3 10.0 - 15.0 % 06/15/2024 5:37 PM MACHINE REPAIRER MAINTENANCE [facility] Platelet Count 302 150 - 450 10e3/uL 06/15/2024 5:37 PM MACHINE REPAIRER MAINTENANCE [facility] % Neutrophils 65 % 06/15/2024 5:37 PM MACHINE REPAIRER MAINTENANCE [facility] % Lymphocytes 26 % 06/15/2024 5:37 PM MACHINE REPAIRER MAINTENANCE [facility] % Monocytes 8 % 06/15/2024 5:37 PM MACHINE REPAIRER MAINTENANCE [facility] % Eosinophils 0 % 06/15/2024 5:37 PM MACHINE REPAIRER MAINTENANCE [facility] % Basophils 0 % 06/15/2024 5:37 PM MACHINE REPAIRER MAINTENANCE [facility] % Immature Granulocytes 1 % 06/15/2024 5:37 PM MACHINE REPAIRER MAINTENANCE [facility] Absolute Neutrophils 3.4 1.6 - 8.3 10e3/uL 06/15/2024 5:37 PM MACHINE REPAIRER MAINTENANCE [facility] Absolute Lymphocytes 1.4 0.8 - 5.3 10e3/uL 06/15/2024 5:37 PM MACHINE REPAIRER MAINTENANCE [facility] Absolute Monocytes 0.4 0.0 - 1.3 10e3/uL 06/15/2024 5:37 PM MACHINE REPAIRER MAINTENANCE [facility] Absolute Eosinophils 0.0 0.0 - 0.7 10e3/uL 06/15/2024 5:37 PM MACHINE REPAIRER MAINTENANCE [facility] Absolute Basophils 0.0 0.0 - 0.2 10e3/uL 06/15/2024 5:37 PM MACHINE REPAIRER MAINTENANCE [facility] Absolute Immature Granulocytes 0.0 <=0.4 10e3/uL 06/15/2024 5:37 PM MACHINE REPAIRER MAINTENANCE [facility] Blood BLOOD SPECIMEN / Unknown Venipuncture / Unknown 06/15/2024 5:14 PM MACHINE REPAIRER MAINTENANCE 06/15/2024 5:14 PM MACHINE REPAIRER MAINTENANCE us Yamile James PA-C LAB - BLOOD ORDERABLES Final R esult [facility] [place] Lab [address] [facility] Lab (no room number, 1st floor of clinic) [place] [address], [facility] * CRP, inflammation (06/15/2024 5:14 PM MACHINE REPAIRER MAINTENANCE) CRP Inflammation <3.00 <5.00 mg/L 06/15/20 7:09 PM [facility] Blood BLOOD SPECIMEN / Unknown Venipuncture / Unknown 06/15/2024 5:14 PM MACHINE REPAIRER MAINTENANCE 06/15/2024 5:14 PM MACHINE REPAIRER MAINTENANCE us Yamile James PA-C LAB - BLOOD ORDERABLES Final R esult LABORATORY [facility] Lab [address] Lab (1st floor, no room number) [place] [address], [facility] * (ABNORMAL) Basic metabolic panel (06/15/2024 5:14 PM MACHINE REPAIRER MAINTENANCE) [facility] Sodium 143 135 - 145 mmol/L 06/15/2024 7:09 PM [facility] Potassium 4.6 3.4 - 5.3 mmol/L 06/15/2024 7:09 PM [facility] Chloride 106 98 - 107 mmol/L 06/15/2024 7:09 PM [facility] Carbon Dioxide (CO2) 26 22 - 29 mmol/L 06/15/2024 7:09 PM [facility] Anion Gap 11 7 - 15 mmol/L 06/15/2024 7:09 PM [facility] Urea Nitrogen 26.3(H) 8.0 - 23.0 mg/dL 06/15/2024 7:09 PM [facility] Creatinine 1.18(H) 0.51 - 0.95 mg/dL 06/15/2024 7:09 PM [facility] GFR Estimate 46(L) >60 mL/min/1.7 3m2 06/15/2024 7:09 PM [facility] Comment:eGFR calculated usin 2020 CKD-EPI equation. Calcium 9.8 8.8 - 10.4 mg/dL 06/15/2024 7:09 PM [facility] Comment:Reference intervals for this test were updated on 01/04/2024 to reflect our healthy population more accurately. There may be differences in the flagging of prior results with similar values performed with this method. Those prior results can be interpreted in the context of the updated reference intervals. Glucose 125(H) 70 - 99 mg/dL 06/15/2024 7:09 PM MACHINE REPAIRER MAINTENANCE LABORATORY Blood BLOOD SPECIMEN / Unknown Venipuncture / Unknown 06/15/2024 5:14 PM MACHINE REPAIRER MAINTENANCE 06/15/2024 5:14 PM MACHINE REPAIRER MAINTENANCE us Yamile James PA-C LAB - BLOOD ORDERABLES Final R esult LABORATORY [facility] [address] [facility] ([facility], no room number) [place] [address] * (ABNORMAL) UA Macroscopic with reflex to Microscopic and Culture - Clinic Collect (06/15/2024 2:15 PM MACHINE REPAIRER MAINTENANCE) Color Urine Yellow Colorless, Straw, Light Yellow, Yellow 06/15/2024 2:28 PM MACHINE REPAIRER MAINTENANCE LABORATORY Appearance Urine Clear Clear 06/15/20 2:28 PM MACHINE REPAIRER MAINTENANCE LABORATORY Glucose Urine Negative Negative mg/dL 06/15/2024 2:28 PM MACHINE REPAIRER MAINTENANCE LABORATORY Bilirubin Urine Small(A) Negative 2:28 PM MACHINE REPAIRER MAINTENANCE LABORATORY Ketones Urine 15(A) Negative mg/dL 06/15/2024 2:28 PM MACHINE REPAIRER MAINTENANCE LABORATORY Specific [place] Urine >=1.030 1.003 - 1.035 06/15/2024 2:28 PM MACHINE REPAIRER MAINTENANCE LABORATORY Blood Urine Trace(A) Negative 06/15/2024 2:28 PM MACHINE REPAIRER MAINTENANCE LABORATORY pH Urine 5.5 5.0 - 7.0 06/15/2024 2:28 PM MACHINE REPAIRER MAINTENANCE LABORATORY Protein Albumin Urine 100(A) Negative mg/dL 06/15/2024 2:28 PM MACHINE REPAIRER MAINTENANCE LABORATORY Urobilinogen Urine 0.2 0.2, 1.0 E.U./dL 06/15/2024 2:28 PM MACHINE REPAIRER MAINTENANCE LABORATORY Nitrite Urine Negative Negative 06/15/2024 2:28 PM MACHINE REPAIRER MAINTENANCE LABORATORY Leukocyte Esterase Urine Moderate(A) Negative 06/15/2024 2:28 PM MACHINE REPAIRER MAINTENANCE LABORATORY Urine URINE SPECIMEN OBTAINED BY CLEAN CATCH PROCEDURE / Unknown Non-blood Collection / Unknown 06/15/2024 2:15 PM MACHINE REPAIRER MAINTENANCE 06/15/2024 2:15 PM MACHINE REPAIRER MAINTENANCE us Esteban Gant MD LAB - URINE ORDERABLES Final Res ult LABORATORY [facility] Lab [address] [place] [address] Lab (no room number, 1st floor of [facility]) [address] * (ABNORMAL) Urine Microscopic Exam (06/15/2024 2:15 PM MACHINE REPAIRER MAINTENANCE) Bacteria Urine Moderate( A) None Seen /HPF KAILYN 06/15/2024 2:35 PM MACHINE REPAIRER MAINTENANCE LABORATORY RBC Urine 2-5(A) 0-2 /HPF /HPF KAILYN 06/15/2024 2:35 PM MACHINE REPAIRER MAINTENANCE [facility] WBC Urine >100(A) 0-5 /HPF /HPF KAILYN 06/15/2024 2:35 PM MACHINE REPAIRER MAINTENANCE [facility] Squamous Epithelials Urine Few(A) None Seen /LPF KAILYN 06/15/2024 2:35 PM MACHINE REPAIRER MAINTENANCE [facility] Urine URINE SPECIMEN OBTAINED BY CLEAN CATCH PROCEDURE / Unknown Non-blood Collection / Unknown 06/15/2024 2:15 PM MACHINE REPAIRER MAINTENANCE 06/15/2024 2:15 PM MACHINE REPAIRER MAINTENANCE us Esteban Gant MD LAB - URINE ORDERABLES Final Res ult Performing Organization Address [facility]/ZIP Co de Phone Number LABORATORY [facility] Lab [address] [place] [address] (no room number, 1st floor of [facility]) [address] * (ABNORMAL) Urine Culture (06/15/2024 2:15 PM MACHINE REPAIRER MAINTENANCE) Culture 10,000-50,000 CFU/mL Enterobacter cloacae complex(A) 06/16/2024 11:19 PM MACHINE REPAIRER MAINTENANCE [facility] Urine URINE SPECIMEN OBTAINED BY CLEAN CATCH PROCEDURE / Unknown Non-blood Collection / Unknown 06/15/2024 2:15 PM MACHINE REPAIRER MAINTENANCE 06/15/2024 2:28 PM MACHINE REPAIRER MAINTENANCE Narrative Organism Antibiotic Method Susceptibility Enterobacter cloacae [...] for invasive infections, regardless of susceptibility results. Esteban Gant MD LAB - MICRO GENERAL ORDERABLES F inal Result [facility]ORAT[facility] Inf. Diseases Diag. Lab [address] [facility], [address] [place] [address] * Albumin Random Urine Quantitative with Creat [...] control, and institution of therapy with an jlsenlymxag-jrngunekma-novzez (JUANCARLOS) inhibitor (if the patient can tolerate it). Urine URINE SPECIMEN / Unknown Non-blood Collection / Unknown 03/16/2024 3:16 PM CDT 03/16/2024 3:16 PM CDT us Alfreda Ray PA-C LAB - URINE ORDERABLES F inal Result [facility] LAB[facility] [place] [facility] [address] [facility], Room [address] [address] * (ABNORMAL) Lipid panel reflex to direct [...] BLOOD ORDERABLES F inal Result [facility] [facility] [address] [facility], Room [address] [place] [address] * (ABNORMAL) HEMOGLOBIN A1C (03/16/2024 3:09 PM CDT) Pathologist [facility] Estimated Average Glucose 120(H) <117 mg/dL 03/16/2024 [...] BLOOD ORDERABLES F inal Result RV LABORATORY [facility] [place] Lab [address] [facility] (no room number, 1st floor of clinic) [place] [address], [facility] * (ABNORMAL) Comprehensive metabolic panel (BMP + [...] BLOOD ORDERABLES F inal Result [facility] [place] [facility] [address] [facility], Room [address] [phone] * Vitamin B12 (03/16/2024 3:09 PM CDT) Vitamin B12 869 232 - 1,245 pg/mL 03/17/2024 7:42 PM CDT [facility] Blood BLOOD SPECIMEN / Unknown Venipuncture / Unknown 03/16/2024 3:09 PM CDT 03/16/2024 3:09 PM CDT Alfreda Ray PA-C LAB - BLOOD ORDERABLES F inal Result Performing Organization Address City/[facility]/ZIP Co de Phone Number [facility] [place] [facility] [address] [facility], [address] [phone] * DX Hip/Pelvis/Spine w Lateral (09/30/2020 12:30 PM CDT) Anatomical Region Laterality Modality Dexa Bone Mineral Den sity Narrative 10/04/2020 1:35 PM CDT BONE DENSITOMETRY [address] [address] 09/30/2020 PATIENT: Alexandria Bradshaw CHART: [id number] : 1940 AGE: [age] year old SEX: female REFERRING PROVIDER: Kelly Haley MD PROCEDURE: Bone density scanning was performed using DXA technology of the lumbar spine and hip. Scanning was performed on a [employer] scanner. Reporting is completed in the form [...] to another DXA performed on the same [employer] machine on 12/10/2014. LATERAL VERTEBRAL ASSESSMENT Procedure: Vertebral fracture assessment was performed in the lateral decubitus position using a [employer] densitometer. Indications for VFA: T-score of -1.0 [...] letter mailed to patient. DEVIN LOZANO MD us Kelly Haley MD IMG MAMMOGRAPHY ORDERAB LES Final Result * COLONOSCOPY - HIM SCAN (08/26/2015 12:00 AM MACHINE REPAIRER MAINTENANCE) 08/26/2015 us Provider Outside PROCEDURES Final Result from Last 3 Months or Most Recently Relevant to Health Maintenance Insurance [facility] MEDICARE ADVANTAGE [facility] MEDICARE ADVANTAGE * Guarantor: Alexandria Bradshaw Account Type Relation to Patient Date of Phone Billing Address Medication Therapy Self 1940 [address] [place] [address] MEDICARE ADVANTAGE Advance Directives For more information, please contact: [phone] * Full Code (Latest Code Status on File) Date Activated Date Inactivated Comments 12/08/2021 8:37 PM 12/09/2021 3:06 PM All basic an d advanced life-sustaining interventions are performed as appropriate Question Answer Comments Code status determined by: Discussion with galina nt/ legal decision maker Care Teams Lockstitch Hemmer Relationship Specialty Start Date End Date Alfreda Ray PA-C [address] [place] [address] [phone] PCP - General Family Medicine 12/30/21 Alfreda Ray PA-C [address] [place] [address] [phone] Referring Physician Family Medicine 12/31/21 Katrin Orellana PA-C [address] [place] [address] [phone] Physician Campus Manager Dermatology 12/31/21 Shanna Vang PA-C [address] [place], [place] 486514 Assigned Cancer Care Provider 01/10/22 Fransisco Eddy MD [address] [place] [address] [phone] Assigned Rheumatology Provider 05/09/22 Cristina Hsieh, [facility] [address] [place] [address] LISBETH HERNANDEZ [phone] Pharmacist Pharmacist 09/07/22 Alfreda Ray PA-C [address] [place], [place] 224732 Assigned PCP 08/29/22 Cristina Hsieh, [facility] [address] [facility] [address] [place] [address] Assigned MTM Pharmacist 09/26/22 Dakota Tatum MD [address] [place] [address] [phone] Cardiovascular Disease 03/25/23 Dakota Tatum MD [address] [place] [address] Assigned Heart and Vascular Provider 05/01/23 [place] [address] [address], [facility] [address] [place] [address] Assigned Musculoskeletal Provider 04/12/24
--- OUTSIDE RECORDS SUMMARY | 2024-06-22 23:07 | XMS_ITS | Encounter Summary ---
Author Organization [facility] Address [address] [place] [address] Care Team Providers Care Brush Or Broom Cutter Name Role Phone Alfreda Ray PA-C Primary Care Provider + Alfreda Ray PA-C Unavailable [phone] Katrin Orellana PA-C Unavailable Shanna Vang PA-C Unavailable [phone] Fransisco Eddy MD Unavailable [phone] Cristina Hsieh [facility] Unavailable Alfreda Ray PA-C Unavailable [phone] Cristina Hsieh [facility] Unavailable Dakota Tatum MD Unavailable [phone] Dakota Tatum MD Unavailable [phone] Srinivas Marie DO Unavailable [phone] Encounter Details Date Type Department Care Team (Late st Contact Info) Description 06/17/2024 [facility] [address] [place] [phone] Yamile James PA-C [address] [place] [address] [phone] Complicated UTI (urinary tract infection) (Primary Dx) Social History Tobacco Use Types Packs/Day Years [...] Answer Date Recorded PHQ-2 Score 0 03/16/2024 [facility] [place] of Occupat ional Health - Occupational Stress [...] Answer Date Recorded Do you have housing? (Housin g is defined as stable permanent housing and does not include staying ouside in a car, in a tent, in an abandoned building, in an overnight long-term, or couch-surfing.) Yes 03/15/2024 Are you worried [...] Sex Assigned at Female 08/17/2018 7:56 AM NEGATIVE SPOTTER Legal Sex Female 4:24 AM NEGATIVE SPOTTER Gender Identity Female 08/17/2018 7:56 AM NEGATIVE SPOTTER Sexual Orientation Straight 08/17/2018 7: 56 AM NEGATIVE SPOTTER documented as of this encounter Plan of Treatment Upcoming Encounters Date Type Department Care Team (Late st Contact Info) Description 09/07/2024 10:00 AM CDT Office Visit [facility] [address] [place] [phone] Fransisco Eddy MD [address] [place] [address] [phone] 03/29/2025 3:40 PM CDT Office Visit [address] [phone] Alfreda Ray PA-C [address] [place] [address] [phone] documented as of this encounter Visit Diagnoses Diagnosis Complicated UTI (urinary tract infection)- Primary Urinary tract infection, site not specified documented in this encounter Additional Health Concerns Assessment Noted Time PHQ-9 Depression Total Score: 5 03/09/20 10:57 AM CDT documented as of this encounter Care Teams Brush Or Broom Cutter Relationship Specialty Start Date End Date Alfreda Ray PA-C [address] [place] [address] PCP - General Family Medicine 12/30/21 Alfreda Ray PA-C [address] [place] [address] Referring Physician Family Medicine 12/31/21 Katrin Orellana PA-C [address] [place] [address] Physician Recycling Collections Driver Dermatology 12/31/21 Shanna Vang PA-C [address] [place] [address] Assigned Cancer Care Provider 01/10/22 Fransisco Eddy MD [address] [place] [address] Assigned Rheumatology Provider 05/09/22 Cristina Hsieh [facility] [address] [facility] [place] [address] Pharmacist Pharmacist 09/07/22 Alfreda Ray PA-C [address] [place] [address] Assigned PCP 08/29/22 Cristina Hsieh [facility] [address] [address] Assigned MTM Pharmacist 09/26/22 Dakota Tatum MD [address] [place] [address] Cardiovascular Disease 03/25/23 Dakota Tatum MD [address] [place], [place] 444005 Assigned Heart and Vascular Provider 05/01/23 [place] [address] [address], [address] [address] Assigned Musculoskeletal Provider 04/12/24 documented as of this encounter
--- OUTSIDE RECORDS SUMMARY | 2024-06-22 23:07 | XMS_ITS | Encounter Summary ---
Author Organization [place] Address [address] [place] [address] Care Team Providers Care Bark Grinder Name Role Phone Alfreda Ray PA-C Primary Care Provider + Alfreda Ray PA-C Unavailable +[phone] Katrin Orellana PA-C Unavailable [phone] Shanna Vang PA-C Unavailable +[phone] Fransisco Eddy MD Unavailable +[phone] Katrin Orellana PA-C Unavailable [phone] Cristina Hsieh [facility] Unavailable [phone] Alfreda Ray PA-C Unavailable + [phone] Alfreda Ray PA-C Unavailable [phone] Cristina Hsieh [facility] Unavailable [phone] Dakota Tatum MD Unavailable + [phone] Dakota Tatum MD Unavailable + [phone] Srinivas Marie DO Unavailable [phone] Reason for Visit * Reason Onset Date Comments [facility] 07/24/2023 Encounter Details Date Type Department Care Team (Late st Contact Info) Description 07/24/2023 [facility] [address] [phone] Alfreda Ray PA-C [address] [place], [place] 414782 [facility] Social History Tobacco Use Types Packs/Day Years [...] in an abandoned building, in an overnight detention, or couch-surfing.) Yes 05/18/2023 Are you worried [...] Sex Assigned at Female 08/17/2018 7:56 AM ORACLE ANALYST Legal Sex Female 4:24 AM ORACLE ANALYST Gender Identity Female 08/17/2018 7:56 AM ORACLE ANALYST Sexual Orientation Straight 08/17/2018 7: 56 AM ORACLE ANALYST documented as of this encounter Miscellaneous Notes * Telephone Encounter - Idania Stokes - 07/29/2023 11:40 AM CST Talked to patient who set up a virtual to do form with provider. VV was set up 08/19/23 Idania Mcmahon LE ANALYST * Telephone Encounter - Sarina Stevens - 07/29/2023 11:05 AM CST [employer] message sent to patient advising of Alfreda Ray's message below. LE ANALYST * Telephone Encounter - Alfreda Ray PA-C - 07/28/2023 4:46 PM ORACLE ANALYST Images from the original note were not included. Video or in person visit to document & complete paperwork. Please assist with scheduling. Can mail to her to take to DMV or mail in. Alfreda Ray MBA, MS, [facility] LE ANALYST * Telephone Encounter - Fadumo Storey RN - 07/27/2023 12:58 PM CST Please see my chart message and advise. Thanks Does patient need appointment? In person or virtual? Last office visit was 05/25/23 LE ANALYST documented in this encounter Plan of Treatment Upcoming Encounters Date Type Department Care Team (Late st Contact Info) Description 09/07/2024 10:00 AM CDT Office Visit [facility] [address] [place] [phone] Fransisco Eddy MD [address] [place] [address] 03/29/2025 3:40 PM CDT Office Visit [address] [phone] Alfreda Ray PA-C [address] [place] [address] 990602 documented as of this encounter Visit Diagnoses Not on filedocumented in this encounter Additional Health Concerns Assessment Noted Time PHQ-9 Depression Total Score: 5 03/09/20 23 10:57 AM CDT documented as of this encounter Care Teams Bark Grinder Relationship Specialty Start Date End Date Alfreda Ray PA-C [address] [place] [address] PCP - General Family Medicine 12/30/21 Alfreda Ray PA-C [address] [place] [address]646 Referring Physician Family Medicine 12/31/21 Katrin Orellana PA-C [address] [place] [address]479 Physician Ocean Lifeguard Dermatology 12/31/21 Shanna Vang PA-C [address] [place] [address] 04294 Assigned Cancer Care Provider 01/10/22 Fransisco Eddy MD [address] [place] [address] 010015 Assigned Rheumatology Provider 05/09/22 Katrin Orellana PA-C [address] [place] [address] 86686 Assigned Surgical Provider 08/15/22 02/10/24 Cristina Hsieh [facility] [address] [place] [address] Pharmacist Pharmacist 09/07/22 Alfreda Ray PA-C [address] [place] [address] 498072 Assigned Pain Medication Provider 09/05/22 09/10/23 Alfreda Ray PA-C [address] [place] [address] 037162 Assigned PCP 08/29/22 Cristina Hsieh [facility] [address] [place] [address] 09059 Assigned MTM Pharmacist 09/26/22 Dakota Tatum MD [address] [place] [address]856 Cardiovascular Disease 03/25/23 Dakota Tatum MD [address] [place] [address] 22152 Assigned Heart and Vascular Provider 05/01/23 [place] [address] [address] Assigned Musculoskeletal Provider 04/12/24 documented as of this encounter
--- OUTSIDE RECORDS SUMMARY | 2024-06-22 23:07 | XMS_ITS | Encounter Summary ---
Author Organization [place] Address [address] [place] [address] Care Team Providers Care Liaison Inspection Laboratory Assistant Name Role Phone Alfreda Ray PA-C Primary Care Provider + Alfreda Ray PA-C Unavailable [phone] Katrin Orellana PA-C Unavailable [phone] Shanna Vang PA-C Unavailable +[phone] Fransisco Eddy MD Unavailable [phone] Katrin Orellana PA-C Unavailable [phone] Cristina Hsieh [facility] Unavailable [phone] Alfreda Ray PA-C Unavailable + [phone] Alfreda Ray PA-C Unavailable + [phone] Cristina Hsieh [facility] Unavailable [phone] Dakota Tatum MD Unavailable + [phone] Dakota Tatum MD Unavailable + [phone] Srinivas Marie DO Unavailable [phone] Encounter Details Date Type Department Care Team (Late st Contact Info) Description 06/16/2023 [facility] [address] [place] [address] Shanna Vang PA-C [address] [place] [address] Social History Tobacco Use Types Packs/Day Years [...] in an abandoned building, in an overnight residential, or couch-surfing.) Yes 05/18/2023 Are you worried [...] Sex Assigned at Female 08/17/2018 7:56 AM PIPE JEEPER Legal Sex Female 4:24 AM PIPE JEEPER Gender Identity Female 08/17/2018 7:56 AM PIPE JEEPER Sexual Orientation Straight 08/17/2018 7: 56 AM PIPE JEEPER documented as of this encounter Plan of Treatment Upcoming Encounters Date Type Department Care Team (Late st Contact Info) Description 09/07/2024 10:00 AM CDT Office Visit [facility] [address] [place] [phone] Fransisco Eddy MD [address] [facility] [address] [place] [address] 03/29/2025 3:40 PM CDT Office Visit [address] [phone] Alfreda Ray PA-C [address] [place] [address] documented as of this encounter Visit Diagnoses Not on filedocumented in this encounter Additional Health Concerns Assessment Noted Time PHQ-9 Depression Total Score: 5 03/09/20 23 10:57 AM CDT documented as of this encounter Care Teams Liaison Inspection Laboratory Assistant Relationship Specialty Start Date End Date Alfreda Ray PA-C [address] [place] [address] PCP - General Family Medicine 12/30/21 Alfreda Ray PA-C [address] [place] [address] 31195 Referring Physician Family Medicine 12/31/21 Katrin Orellana PA-C [address] [place] [address] [address] [place] [address] Physician Gasket Maker Dermatology 12/31/21 Shanna Vang PA-C [address] [place] [address] Assigned Cancer Care Provider 01/10/22 Fransisco Eddy MD [address] [place] [address] 88 [place] [address] Assigned Rheumatology Provider 05/09/22 Katrin Orellana PA-C [address] [place] [address] [address] [place], [place] 346985 Assigned Surgical Provider 08/15/22 02/10/24 Cristina Hsieh [facility] [address] [facility] [place] [address] Pharmacist Pharmacist 09/07/22 Alfreda Ray PA-C [address] [place] [address] 636912 Assigned Pain Medication Provider 09/05/22 09/10/23 Alfreda Ray PA-C [address] [place] [address] 10640 Assigned PCP 08/29/22 Cristina Hsieh [facility] [address] [phone] Assigned MTM Pharmacist 09/26/22 Dakota Tatum MD [address] [place] [address] Cardiovascular Disease 03/25/23 Dakota Tatum MD [address] [place] [address] 40963 Assigned Heart and Vascular Provider 05/01/23 [place] [address] [address], [address] [address] Assigned Musculoskeletal Provider 04/12/24 documented as of this encounter
--- OUTSIDE RECORDS SUMMARY | 2024-06-22 23:07 | XMS_ITS | Encounter Summary ---
Author Organization [place] Address [address] [place] [address] Care Team Providers Care Software Engineer Developer Name Role Phone Alfreda Ray PA-C Primary Care Provider + Alfreda Ray PA-C Unavailable [phone] Katrin Orellana PA-C Unavailable [phone] Shanna Vang PA-C Unavailable +[phone] Fransisco Eddy MD Unavailable [phone] Katrin Orellana PA-C Unavailable [phone] Cristina Hsieh [facility] Unavailable [phone] Alfreda Ray PA-C Unavailable [phone] Cristina Hsieh [facility] Unavailable [phone] Dakota Tatum MD Unavailable [phone] Dakota Tatum MD Unavailable [phone] Srinivas Marie DO Unavailable [phone] Reason for Visit * Reason Comments Medication Refill Encounter Details Date Type Department Care Team (Late st Contact Info) Description 10/08/[address] [facility] [place] [address] [facility] [address] [place] [address] Alfreda Ray PA-C [address] [place] [address] Medication Refill Social History Tobacco Use Types Packs/Day Years [...] in an abandoned building, in an overnight longterm, or couch-surfing.) Yes 05/18/2023 Are you worried [...] Sex Assigned at Female 08/17/2018 7:56 AM MANAGER HUMAN RESOURCES Legal Sex Female 4:24 AM MANAGER HUMAN RESOURCES Gender Identity Female 08/17/2018 7:56 AM MANAGER HUMAN RESOURCES Sexual Orientation Straight 08/17/2018 7: 56 AM MANAGER HUMAN RESOURCES documented as of this encounter Miscellaneous Notes * Telephone Encounter - Natalia Klein CMA - 10/12/2023 4:19 PM CDT Called patient scheduled for BP check in [place] on 10/14/2023. Natalia Klein CMA * Telephone Encounter - Alfreda Ray PA-C - 10/11/2023 12:07 PM CDT Refilled x 90 days. Please advise patient last blood pressure was above goal. Please encourage her to schedule a nurse only blood pressure visit at the [facility] near her home [facility] [place]. Not due for annual visit until February 2024. If she would like to schedule thisplease assist her in doing so. documented in this encounter Plan of Treatment Upcoming Encounters Date Type Department Care Team (Late st Contact Info) Description 09/07/2024 10:00 AM CDT Office Visit [address] [phone] Fransisco Eddy MD [address] [place] [address] 996745 03/29/2025 3:40 PM CDT Office Visit [address] [phone] Alfreda Ray PA-C [address] [place] [address] 838012 documented as of this encounter Visit Diagnoses Diagnosis Primary osteoarthritis involving multiple joints documented in this encounter Additional Health Concerns Assessment Noted Time PHQ-9 Depression Total Score: 5 03/09/20 23 10:57 AM CDT documented as of this encounter Care Teams Software Engineer Developer Relationship Specialty Start Date End Date Alfreda Ray PA-C [address] [place] [address] 9[address] PCP - General Family Medicine 12/30/21 Alfreda Ray PA-C [address] [place] [address] 9[address] Referring Physician Family Medicine 12/31/21 Katrin Orellana PA-C [address] [place] [address] 759695 Physician Motion Picture Commentator Dermatology 12/31/21 Shanna Vang PA-C [address] [place] [address] 019114 Assigned Cancer Care Provider 01/10/22 Fransisco Eddy MD [address] [place] [address] [phone] Assigned Rheumatology Provider 05/09/22 Katrin Orellana PA-C [address] [place] [address] 435525 Assigned Surgical Provider 08/15/22 02/10/24 Cristina Hsieh [facility] [address] [place] [address] [place] [address] Pharmacist Pharmacist 09/07/22 Alfreda Ray PA-C [address] [place] [address] 00600 Assigned PCP 08/29/22 Cristina Hsieh, [facility] [address] [address] Assigned MTM Pharmacist 09/26/22 Dakota Tatum MD [address] [place] [address] Cardiovascular Disease 03/25/23 Dakota Tatum MD [address] [place] [address]65 Assigned Heart and Vascular Provider 05/01/23 [place] [address] [address], [facility] [address] [place] [address] Assigned Musculoskeletal Provider 04/12/24 documented as of this encounter
--- OUTSIDE RECORDS SUMMARY | 2024-06-22 23:07 | XMS_ITS | Encounter Summary ---
Author Organization [place] Address [address] [place] [address] Care Team Providers Care Escalator Installer Name Role Phone Alfreda Ray PA-C Primary Care Provider + Alfreda Ray PA-C Unavailable [phone] Katrin Orellana PA-C Unavailable Shanna Vang-C Unavailable +[phone] Fransisco Eddy MD Unavailable +[phone] Cristina Hsieh [facility] Unavailable [phone] Alfreda Ray PA-C Unavailable [phone] Cristina Hsieh [facility] Unavailable [phone] Dakota Tatum MD Unavailable + [phone] Dakota Tatum MD Unavailable [phone] Srinivas Marie DO Unavailable Encounter Details Date Type Department Care Team (Latest Contact Info) Description 06/15/2024 Travel Social History Tobacco Use Types Packs/Day Years [...] re latives? Once a week 03/15/2024 Attends Gnosticism Services Not on file 03/15 Active Member of Clubs or Organizations Not on f ile 03/15/2024 Attends Club or Organization Meetings Not on anu e 03/15/2024 Marital Status Not on file 03/15/2024 PHQ-2 Answer Date Recorded PHQ-2 Score 0 03/16/2024 [facility] - Occupational Stress [...] in an overnight alf, or couch-surfing.) Yes 03/15/2024 Are you worried [...] Sex Assigned at Female 08/17/2018 7:56 AM RESEARCH CENTER DIRECTOR Legal Sex Female 4:24 AM RESEARCH CENTER DIRECTOR Gender Identity Female 08/17/2018 7:56 AM RESEARCH CENTER DIRECTOR Sexual Orientation Straight 08/17/2018 7: 56 AM RESEARCH CENTER DIRECTOR documented as of this encounter Plan of Treatment Upcoming Encounters Date Type Department Care Team (Late st Contact Info) Description 09/07/2024 10:00 AM CDT Office Visit [address] [phone] Fransisco Eddy MD [address] [place] [address] 03/29/2025 3:40 PM CDT Office Visit [address] [phone] Alfreda Ray PA-C [address] [place] [address] [phone] documented as of this encounter Visit Diagnoses Not on filedocumented in this encounter Additional Health Concerns Assessment Noted Time PHQ-9 Depression Total Score: 5 03/09/20 23 10:57 AM CDT documented as of this encounter Care Teams Escalator Installer Relationship Specialty Start Date End Date Alfreda Ray PA-C [address] [place] [address] 656282 PCP - General Family Medicine 12/30/21 Alfreda Ray PA-C [address] [place] [address] Referring Physician Family Medicine 12/31/21 Katrin Orellana PA-C [address] [facility] 98 [place] [address] Physician Cap Inspector Dermatology 12/31/21 Shanna Vang PA-C [address] [place] [address] [phone] Assigned Cancer Care Provider 01/10/22 Fransisco Eddy MD [address] [place] [address] 332205 Assigned Rheumatology Provider 05/09/22 Cristina Hsieh [facility] [address] [place] [address] [place] [address] Pharmacist Pharmacist 09/07/22 Alfreda Ray PA-C [address] [place] [address] 68148 Assigned PCP 08/29/22 Cristina Hsieh [facility] [address] [place] [address] Assigned MTM Pharmacist 09/26/22 Dakota Tatum MD [address] [place] [address] 18669 Cardiovascular Disease 03/25/23 Dakota Tatum MD [address] [place] [address] Assigned Heart and Vascular Provider 05/01/23 [place] [address] [address], [address] [address] Assigned Musculoskeletal Provider 04/12/24 documented as of this encounter
--- OUTSIDE RECORDS SUMMARY | 2024-06-22 23:07 | XMS_ITS | Encounter Summary ---
Author Organization [place] Address [address] [place] [address] Care Team Providers Care Medical And Health Services Manager Name Role Phone Alfreda Ray PA-C Primary Care Provider + Alfreda Ray PA-C Unavailable [phone] Katrin Orellana PA-C Unavailable Shanna Vang PA-C Unavailable [phone] Fransisco Eddy MD Unavailable Ran Hsieh [facility] Unavailable Alfreda Ray PA-C Unavailable Ran Hsieh [facility] Unavailable Dakota Tatum MD Unavailable [phone] Dakota Tatum MD Unavailable [phone] Srinivas Marie DO Unavailable [phone] Encounter Details Date Type Department Care Team (Late st Contact Info) Description 06/06/[address] [phone] Alfreda Ray PA-C [address] [place] [address] Social History Tobacco Use Types Packs/Day Years [...] re latives? Once a week 03/15/2024 Attends Voodoo Services Not on file 03/15 Active Member of Clubs or Organizations Not on f ile 03/15/2024 Attends Club or Organization Meetings Not on anu e 03/15/2024 Marital Status Not on file 03/15/2024 PHQ-2 Answer Date Recorded PHQ-2 Score 0 03/16/2024 [facility] [place] of Occupat ional Health - Occupational Stress [...] in an overnight intermediate, or couch-surfing.) Yes 03/15/2024 Are you worried [...] Sex Assigned at Female 08/17/2018 7:56 AM ASSISTANT GUEST SERVICES MANAGER Legal Sex Female 4:24 AM ASSISTANT GUEST SERVICES MANAGER Gender Identity Female 08/17/2018 7:56 AM ASSISTANT GUEST SERVICES MANAGER Sexual Orientation Straight 08/17/2018 7: 56 AM ASSISTANT GUEST SERVICES MANAGER documented as of this encounter Progress Notes * Alfreda Ray PA-C - 06/06/2024 3:02 PM CST Images from the original note were not included. Ran Hsieh, [facility] Alfreda Ray PA-C Could I ask your staff to reach out to her? I don't think I can walk her through how to do an evisit since we don't really do them in rheumatology nor for MTM visits. Fairly sure I will tell her how to get to it incorrectly. Thank you! Ran Previous Messages ----- Message ----- From: Alfreda Ray PA-C Sent: 06/05/2024 10:21 AM ASSISTANT GUEST SERVICES MANAGER To: Ran Hsieh RPH Subject: RE: Cold sores Ran- I can certainly put her on suppressive therapy - could she submit an evisit for documentation purposes? Otherwise I can do a video visit with her if she prefers but evisit is likely the least costly option. Just make sure when she submits it she chooses me as the provider rather than first available provider as this would go to the urgent care provider pool. Let me know if you have questions or if you'd prefer that I have my staff reach out/relay the message. Thanks! Alfreda Ray MBA, MS, PARobinson [facility] ----- Message ----- From: Ran Hsieh, [facility] Sent: 06/02/2024 11:35 AM ASSISTANT GUEST SERVICES MANAGER To: Alfreda Ray PA-C Subject: Cold sores Hi! 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 I am sure the immunocompromising effect of Rinvoq is not helping since she hasn't been able to clear them yet. She noted she used to be on an as needed medication for this - assuming valacyclovir - however I don't see anything in her chart. Not sure if she needs to be seen for it or not but could your office reach out to her to coordinate either an appointment or medications? Thank you! Ran Hsieh, PharmD Medication Therapy Management Pharmacist [facility] STANT GUEST SERVICES MANAGER * Alfreda Ray PA-C - 06/06/2024 3:02 PM CST Images from the original note were not included. Triage: patient noting increased coldsores. Wondering about preventative strategies. Recommend evisit or video visit to start suppressive treatment. Please assist with advising on these options to get started. See note from MT below for details. Alfreda Ray MBA, MS, PAR[facility]inson [facility] STANT GUEST SERVICES MANAGER documented in this encounter Miscellaneous Notes * Telephone Encounter - Sabra Gonzalez RN - 06/06/2024 4:33 PM CST Called and spoke with patient. Advised of providers recommendation. Patient stated an understanding and agreed with plan. She thinks she can do an e-visit. If she has questions, she will call us back. SABRA GONZALEZ RN on 06/06/2024 at 4:34 PM [facility] STANT GUEST SERVICES MANAGER * Telephone Encounter - Alfreda Ray PA-C - 06/06/2024 3:02 PM ASSISTANT GUEST SERVICES MANAGER ----- Message from RAN HSIEH sent at 06/06/2024 2:37 PM ASSISTANT GUEST SERVICES MANAGER ----- Regarding: RE: Cold sores Could I ask your staff to reach out to her? I don't think I can walk her through how to do an evisit since we don't really do them in rheumatology nor for MTM visits. Fairly sure I will tell her how to get to it incorrectly. Thank you! Ran ----- Message ----- From: Alfreda Ray PA-C Sent: 06/05/2024 10:21 AM ASSISTANT GUEST SERVICES MANAGER To: Ran Hsieh RPH Subject: RE: Cold sores Ran- I can certainly put her on suppressive therapy - could she submit an evisit for documentation purposes? Otherwise I can do a video visit with her if she prefers but evisit is likely the least costly option. Just make sure when she submits it she chooses me as the provider rather than first available provider as this would go to the urgent care provider pool. Let me know if you have questions or if you'd prefer that I have my staff reach out/relay the message. Thanks! Alfreda Ray MBA, MS, PARobinson [facility] ----- Message ----- From: Ran Hsieh [facility] Sent: 06/02/2024 11:35 AM ASSISTANT GUEST SERVICES MANAGER To: Alfreda Ray PA-C Subject: Cold sores Hi! 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 I am sure the immunocompromising effect of Rinvoq is not helping since she hasn't been able to clear them yet. She noted she used to be on an as needed medication for this - assuming valacyclovir - however I don't see anything in her chart. Not sure if she needs to be seen for it or not but could your office reach out to her to coordinate either an appointment or medications? Thank you! Ran Hsieh, PharmD Medication Therapy Management Pharmacist [facility] STANT GUEST SERVICES MANAGER documented in this encounter Plan of Treatment Upcoming Encounters Date Type Department Care Team (Late st Contact Info) Description 09/07/2024 10:00 AM CDT Office Visit [facility] [address] [phone] Fransisco Eddy MD [address] [place] [address] 03/29/2025 3:40 PM CDT Office Visit [address] [phone] Alfreda Ray PA-C [address] [place] [address] 636172 documented as of this encounter Visit Diagnoses Not on filedocumented in this encounter Additional Health Concerns Assessment Noted Time PHQ-9 Depression Total Score: 5 03/09/20 23 10:57 AM CDT documented as of this encounter Care Teams Medical And Health Services Manager Relationship Specialty Start Date End Date Alfreda Ray PA-C [address] [place] [address] PCP - General Family Medicine 12/30/21 Alfreda Ray PA-C [address] [place] [address] Referring Physician Family Medicine 12/31/21 Katrin Orellana PA-C [address] [facility] 98 [place], [place] 646725 Physician Wreath And Garland Maker Hand Dermatology 12/31/21 Shanna Vang PA-C [address] [place], [place] [address] Assigned Cancer Care Provider 01/10/22 Fransisco Eddy MD [address] [facility] 88 [place], [place] [address] Assigned Rheumatology Provider 05/09/22 Ran Hsieh [facility] [address] [facility] [address] [place], [place] [id number] Pharmacist Pharmacist 09/07/22 Alfreda Ray PA-C [address] [place] [address] 854152 Assigned PCP 08/29/22 Ran Hsieh [facility] [address] [address] Assigned MTM Pharmacist 09/26/22 Dakota Tatum MD 6 [place] [address] Cardiovascular Disease 03/25/23 Dakota Tatum MD 6 [place] [address] Assigned Heart and Vascular Provider 05/01/23 [place] [address] [address], [address] [address] Assigned Musculoskeletal Provider 04/12/24 documented as of this encounter
--- OUTSIDE RECORDS SUMMARY | 2024-06-22 23:07 | XMS_ITS | Encounter Summary ---
Author Organization [place] Address [address] [place] [address] Care Team Providers Care Rn First Assist Name Role Phone Alfreda Ray PA-C Primary Care Provider + Alfreda Ray PA-C Unavailable [phone] Katrin Orellana PA-C Unavailable [phone] Shanna Vang PA-C Unavailable [phone] Fransisco Eddy MD Unavailable [phone] Katrin Orellana PA-C Unavailable [phone] Cristina Hsieh [facility] Unavailable [phone] Alfreda Ray PA-C Unavailable [phone] Cristina Hsieh [facility] Unavailable [phone] Dakota Tatum MD Unavailable [phone] Dakota Tatum MD Unavailable [phone] Srinivas Marie DO Unavailable [phone] Encounter Details Date Type Department Care Team (Late st Contact Info) Description 11/09/2023 Migdalia Salazar [facility] [address] [address] Cristina Hsieh, [facility] [address] [address] Social History Tobacco Use Types Packs/Day Years [...] in an abandoned building, in an overnight assisted, or couch-surfing.) Yes 05/18/2023 Are you worried [...] Sex Assigned at Female 08/17/2018 7:56 AM SOCIAL MEDIA DEVELOPER Legal Sex Female 4:24 AM SOCIAL MEDIA DEVELOPER Gender Identity Female 08/17/2018 7:56 AM SOCIAL MEDIA DEVELOPER Sexual Orientation Straight 08/17/2018 7: 56 AM SOCIAL MEDIA DEVELOPER documented as of this encounter Plan of Treatment Upcoming Encounters Date Type Department Care Team (Late st Contact Info) Description 09/07/2024 10:00 AM CDT Office Visit [facility] [address] [place] [address] Fransisco Eddy MD [address] [place] [address] 03/29/2025 3:40 PM CDT Office Visit [address] [phone] Alfreda Ray PA-C [address] [place] [address] 459402 documented as of this encounter Visit Diagnoses Not on filedocumented in this encounter Additional Health Concerns Assessment Noted Time PHQ-9 Depression Total Score: 5 03/09/20 23 10:57 AM CDT documented as of this encounter Care Teams Rn First Assist Relationship Specialty Start Date End Date Alfreda Ray PA-C [address] [place] [address] PCP - General Family Medicine 12/30/21 Alfreda Ray PA-C [address] [place] [address] Referring Physician Family Medicine 12/31/21 Katrin Orellana PA-C [address] [place] [address] Physician Index Clerk Dermatology 12/31/21 Shanna Vang PA-C [address] [place] [address] Assigned Cancer Care Provider 01/10/22 Fransisco Eddy MD [address] [facility] 88 [place] [address] Assigned Rheumatology Provider 05/09/22 Katrin Orellana PA-C [address] [facility] 98 [place] [address] Assigned Surgical Provider 08/15/22 02/10/24 Cristina Hsieh RPH [address] [place] [address] Pharmacist Pharmacist 09/07/22 Alfreda Ray PA-C [address] [place] [address] 191362 Assigned PCP 08/29/22 Cristina Hsieh RPH [address] [place] [address] Assigned MTM Pharmacist 09/26/22 Dakota Tatum MD [address] [place] [address] Cardiovascular Disease 03/25/23 Dakota Tatum MD [address] [place] [address] Assigned Heart and Vascular Provider 05/01/23 [place] [address] [address] Assigned Musculoskeletal Provider 04/12/24 documented as of this encounter
--- OUTSIDE RECORDS SUMMARY | 2024-06-22 23:07 | XMS_ITS | Encounter Summary ---
Author Organization [place] Address [address] [place] [address] Care Team Providers Care Family Manager Name Role Phone Alfreda Ray PA-C Primary Care Provider + Alfreda Ray PA-C Unavailable [phone] Katrin Orellana PA-C Unavailable Shanna Vang PA-C Unavailable [phone] Fransisco Eddy MD Unavailable Cristina Hsieh [facility] Unavailable Alfreda Ray PA-C Unavailable Cristina Hsieh [facility] Unavailable Dakota Tatum MD Unavailable [phone] Dakota Tatum MD Unavailable [phone] Srinivas Marie DO Unavailable [phone] Encounter Details Date Type Department Care Team (Late st Contact Info) Description 06/07/2024 MyC Medical Advice [address] [phone] Alfreda Ray PA-C [address] [place] [address] Social History Tobacco Use Types Packs/Day [...] re latives? Once a week 03/15/2024 Attends Latter Day Services Not on file 03/15 Active Member of Clubs or Organizations Not on f ile 03/15/2024 Attends Club or Organization Meetings Not on anu e 03/15/2024 Marital Status Not on file 03/15/2024 PHQ-2 Answer Date Recorded PHQ-2 Score 0 03/16/2024 [facility] of Occupat ional Health - Occupational Stress [...] in an abandoned building, in an overnight half-way, or couch-surfing.) Yes 03/15/2024 Are you worried [...] Sex Assigned at Female 08/17/2018 7:56 AM PASSENGER SERVICE AGENT Legal Sex Female 4:24 AM PASSENGER SERVICE AGENT Gender Identity Female 08/17/2018 7:56 AM PASSENGER SERVICE AGENT Sexual Orientation Straight 08/17/2018 7: 56 AM PASSENGER SERVICE AGENT documented as of this encounter Plan of Treatment Upcoming Encounters Date Type Department Care Team (Late st Contact Info) Description 09/07/2024 10:00 AM CDT Office Visit [facility] [address] [phone] Fransisco Eddy MD [address] [place] [address] 03/29/2025 3:40 PM CDT Office Visit [address] [phone] Alfreda Ray PA-C [address] [place] [address] 916522 documented as of this encounter Visit Diagnoses Not on filedocumented in this encounter Additional Health Concerns Assessment Noted Time PHQ-9 Depression Total Score: 5 03/09/20 23 10:57 AM CDT documented as of this encounter Care Teams Family Manager Relationship Specialty Start Date End Date Alfreda Ray PA-C [address] [place] [address] PCP - General Family Medicine 12/30/21 Alfreda Ray PA-C [address] [place] [address] Referring Physician Family Medicine 12/31/21 Katrin Orellana PA-C [address] [place] [address] 98 [place], [place] 5470[address] Physician Endoscopic Technician Dermatology 12/31/21 Shanna Vang PA-C [address] 269984 Assigned Cancer Care Provider 01/10/22 Fransisco Eddy MD [address] [place] [address] 119525 Assigned Rheumatology Provider 05/09/22 Cristina Hsieh [facility] [address] [facility] [id number] Pharmacist Pharmacist 09/07/22 Alfreda Ray PA-C [address] [place] [address] Assigned PCP 08/29/22 Cristina Hsieh [facility] [address] [id number] Assigned MTM Pharmacist 09/26/22 Dakota Tatum MD 6 [place] [address] Cardiovascular Disease 03/25/23 Dakota Tatum MD 6 [place], [place] 8[address] Assigned Heart and Vascular Provider 05/01/23 [place] [address] [address], [address] [address] Assigned Musculoskeletal Provider 04/12/24 documented as of this encounter
--- OUTSIDE RECORDS SUMMARY | 2024-06-22 23:07 | XMS_ITS | Encounter Summary ---
Author Organization [place] Address [address] [place] [address] Care Team Providers Care Health Care Recruiter Name Role Phone Alfreda Ray PA-C Primary Care Provider + Alfreda Ray PA-C Unavailable [phone] Katrin Orellana PA-C Unavailable [phone] Shanna Vang PA-C Unavailable [phone] Fransisco Eddy MD Unavailable [phone] Katrin Orellana PA-C Unavailable [phone] Cristina Hsieh [facility] Unavailable [phone] Alfreda Ray PA-C Unavailable [phone] Alfreda Ray PA-C Unavailable [phone] Cristina Hsieh [facility] Unavailable [phone] Dakota Tatum MD Unavailable + [phone] Dakota Tatum MD Unavailable [phone] Srinivas Marie DO Unavailable [phone] Encounter Details Date Type Department Care Team (Late st Contact Info) Description 07/21/2023 MyC Medical Advice [facility] [address] [place] [phone] Gruendemann, Lecora Social History Tobacco Use [...] in an abandoned building, in an overnight mcc, or couch-surfing.) Yes 05/18/2023 Are you worried [...] Sex Assigned at Female 08/17/2018 7:56 AM STRAINER TENDER Legal Sex Female 4:24 AM STRAINER TENDER Gender Identity Female 08/17/2018 7:56 AM STRAINER TENDER Sexual Orientation Straight 08/17/2018 7: 56 AM STRAINER TENDER documented as of this encounter Plan of Treatment Upcoming Encounters Date Type Department Care Team (Late st Contact Info) Description 09/07/2024 10:00 AM CDT Office Visit [facility] [address] 200 [place] [phone] Fransisco Eddy MD 515 [facility] 88 [place], [place] [address] 03/29/2025 3:40 PM CDT Office Visit [address] [phone] Alfreda Ray PA-C [address] [place] [address] 325362 documented as of this encounter Visit Diagnoses Not on filedocumented in this encounter Additional Health Concerns Assessment Noted Time PHQ-9 Depression Total Score: 5 03/09/20 23 10:57 AM CDT documented as of this encounter Care Teams Health Care Recruiter Relationship Specialty Start Date End Date Alfreda Ray PA-C [address] [place] [address] 612242 PCP - General Family Medicine 12/30/21 Alfreda Ray PA-C [address] [place] [address] Referring Physician Family Medicine 12/31/21 Katrin Orellana PA-C [address] [place] [address] 98 [place], [place] 267435 Physician Foot Gatherer Dermatology 12/31/21 Shanna Vang PA-C [facility] [address] [place] [address] 846344 Assigned Cancer Care Provider 01/10/22 Fransisco Eddy MD [address] [place] [address] 88 [place] [address] Assigned Rheumatology Provider 05/09/22 Katrin Orellana PA-C [address] [place] [address] 466655 Assigned Surgical Provider 08/15/22 02/10/24 Cristina Hsieh [facility] [address] [place] [address] [place] [address] Pharmacist Pharmacist 09/07/22 Alfreda Ray PA-C [address] [place] [address] Assigned Pain Medication Provider 09/05/22 09/10/23 Alfreda Ray PA-C [address] [place] [address] 742352 Assigned PCP 08/29/22 Cristina Hsieh [facility] [address] [place] [address] Assigned MTM Pharmacist 09/26/22 Dakota Tatum MD [address] [place] [address] 599935 Cardiovascular Disease 03/25/23 Dakota Tatum MD [address] [place] [address] Assigned Heart and Vascular Provider 05/01/23 [place] [address] [address], [address] 885457 Assigned Musculoskeletal Provider 04/12/24 documented as of this encounter
--- OUTSIDE RECORDS SUMMARY | 2024-06-22 23:07 | XMS_ITS | Encounter Summary ---
Author Organization [place] Address [address] [place] [address] Care Team Providers Care Melter Supervisor Electric Arc Furnace Name Role Phone Alfreda Ray PA-C Primary Care Provider + Alfreda Ray PA-C Unavailable [phone] Katrin Orellana PA-C Unavailable [phone] Shanna Vang PA-C Unavailable [phone] Fransisco Eddy MD Unavailable [phone] Katrin Orellana PA-C Unavailable [phone] Cristina Hsieh [facility] Unavailable [phone] Alfreda Ray PA-C Unavailable [phone] Cristina Hsieh [facility] Unavailable [phone] Dakota Tatum MD Unavailable [phone] Dakota Tatum MD Unavailable [phone] Srinivas Marie DO Unavailable [phone] Encounter Details Date Type Department Care Team (Late st Contact Info) Description 10/21/2023 MyC Medical Advice [facility] [address] [address] Gia Weller Social History Tobacco Use Types Packs/Day Years [...] Answer Date Recorded Do you have housing? (Loreein g is defined as stable permanent housing and does not include staying ouside in a car, in a tent, in an abandoned building, in an overnight nursing home, or couch-surfing.) Yes 05/18/2023 Are you [...] Sex Assigned at Female 08/17/2018 7:56 AM SUPERVISOR PARKING LOT Legal Sex Female 4:24 AM SUPERVISOR PARKING LOT Gender Identity Female 08/17/2018 7:56 AM SUPERVISOR PARKING LOT Sexual Orientation Straight 08/17/2018 7: 56 AM SUPERVISOR PARKING LOT documented as of this encounter Plan of Treatment Upcoming Encounters Date Type Department Care Team (Azul Contact Info) Description 09/07/2024 10:00 AM CDT Office Visit [facility] [address] [place] [phone] Fransisco Eddy MD 515 [facility] 88 [place] [address] 03/29/2025 3:40 PM CDT Office Visit [address] [phone] Alfreda Ray PA-C [address] [place] [address]752 documented as of this encounter Visit Diagnoses Not on filedocumented in this encounter Additional Health Concerns Assessment Noted Time PHQ-9 Depression Total Score: 5 03/09/20 10:57 AM CDT documented as of this encounter Care Teams Melter Supervisor Electric Arc Furnace Relationship Specialty Start Date End Date Alfreda Ray PA-C [address] [place] [address] [id number] PCP - General Family Medicine 12/30/21 Alfreda Ray PA-C [address] [place] [address] Referring Physician Family Medicine 12/31/21 Katrin Orellana PA-C [address] [place] [address] 98 [place] [address] Physician Glass Forming Engineer Dermatology 12/31/21 Shanan Vang PA-C [address] [place] [address] 864534 Assigned Cancer Care Provider 01/10/22 Fransisco Eddy MD 515 [facility] 88 [place] [address] Assigned Rheumatology Provider 05/09/22 Katrin Orellana PA-C 420 [facility] 98 [place] [address] Assigned Surgical Provider 08/15/22 02/10/24 Cristina Hsieh [facility] [address] [facility] [place] [address] Pharmacist Pharmacist 09/07/22 Alfreda aRy PA-C [address] [place] [address] 209462 Assigned PCP 08/29/22 Cristina Hsieh [facility] [address] [address] Assigned MTM Pharmacist 09/26/22 Dakota Tatum MD 6 [place] [address] Cardiovascular Disease 03/25/23 Dakota Tatum MD [address] [place] [address] Assigned Heart and Vascular Provider 05/01/23 [place] [address] [place] , [facility] 300 [place] [address] Assigned Musculoskeletal Provider 04/12/24 documented as of this encounter
--- OUTSIDE RECORDS SUMMARY | 2024-06-22 23:07 | XMS_ITS | Encounter Summary ---
Author Organization [place] Address [address] [place] [address] Care Team Providers Care Bakery Team Leader Name Role Phone Alfreda Ray PA-C Primary Care Provider + Alfreda Ray PA-C Unavailable [phone] Katrin Orellana PA-C Unavailable [phone] Shanna Vang PA-C Unavailable [phone] Fransisco Eddy MD Unavailable [phone] Cristina Hsieh [facility] Unavailable [phone] Alfreda Rya PA-C Unavailable [phone] Cristina Hsieh [facility] Unavailable [phone] Dakota Tatum MD Unavailable [phone] Dakota Tatum MD Unavailable [phone] Srinivas Marie DO Unavailable [phone] Reason for Referral * Clinically Administered Medications (Routine) - Closed Specialty Diagnoses / Procedures Referred By Sharlene t Referred To Contact Diagnoses Complicated UTI (urinary tract infection) Procedures ZZC CEFTRIAXONE NA INJ /250MG Yamile James PA-C [address] [place] [address] Phone: tel: fax: Referral ID Status Reason Start Date Expiration Date Visits Re quested Visits Authorized [id number] Closed 06/15/2024 06/15/2025 1 1 LE SORTER Reason for Visit * Reason Comments Urgent Care Urinary problem x 2 day, pain with urination,burning sensation, frequency,back pain, * Clinically Administered Medications (Routine) - Closed Specialty Diagnoses / Procedures Referred By Contac t Referred To Contact Diagnoses Complicated UTI (urinary tract infection) Procedures ZZC CEFTRIAXONE NA INJ /250MG Yamile James PA-C [address] [place] [address] Phone: tel: fax: Referral ID Status Reason Start Date Expiration Date Visits Re quested Visits Authorized [id number] Closed 06/15/2024 06/15/2025 1 1 Encounter Details Date Type Department Care Team (Late st Contact Info) Description 06/15/2024 2:05 PM PICKLE SORTER Office Visit [facility] [address] [place] [address] Yamile James PA-C [address] [place] [phone] Complicated UTI (urinary tract infection) (Primary Dx); Dysuria; Flank pain Social History Tobacco Use Types Packs/Day Years [...] Answer Date Recorded PHQ-2 Score 0 03/16/2024 [facility] - Occupational Stress Questionnaire Answer Date Recorded [...] Sex Assigned at Female 08/17/2018 7:56 AM PICKLE SORTER Legal Sex Female 4:24 AM PICKLE SORTER Gender Identity Female 08/17/2018 7:56 AM PICKLE SORTER Sexual Orientation Straight 08/17/2018 7: 56 AM PICKLE SORTER documented as of this encounter Last Filed Vital Signs Vital Sign Reading Time Taken Comments Blood Pressure 136/70 06/15/2024 6:10 PM PICKLE SORTER Pulse 64 06/15/2024 4:35 PM PICKLE SORTER Temperature 36.8 C (98.2 F) 06/15/2024 4:35 PM PICKLE SORTER Respiratory Rate 18 06/15/2024 4:35 PM PICKLE SORTER Oxygen Saturation 97% 06/15/2024 4:35 PM PICKLE SORTER Inhaled Oxygen Concentration - - Weight 94.3 kg (208 lb) 06/15/2024 4:35 PM PICKLE SORTER Height - - Body Mass Index 38.04 05/04/2024 12:20 PM PICKLE SORTER documented in this encounter Patient Instructions * Patient Instructions* Yamile James PA-C - 06/15/2024 2:05 PM PICKLE SORTER You are being treated for kidney infection (complicated urinary tract infection) Take the medication prescribed as indicated Will follow-up if we need to change medication when urine culture results come back Follow-up in the emergency room if symptoms worsen any hour LE SORTER LE SORTER LE SORTER * Attachments The following attachments cannot be sent through Care Everywhere. * Pyelonephritis (Eritrean) documented in this encounter Progress Notes * Yamile James PA-C - 06/15/2024 2:05 PM CST Assessment & Plan 1. Complicated UTI (urinary tract infection) (Primary) -Patient was treated with Rocephin in the clinic. She tolerated the medication well. No adverse effects to the medication noted. She will start Vantin at home and follow the directions on the prescription. - cefTRIAXone (ROCEPHIN) in lidocaine 1% for IM administration 1 g - cefpodoxime (VANTIN) 200 MG tablet; Take 1 tablet (200 mg) by mouth 2 times daily for 7 days. Dispense: 14 tablet; Refill: 0 2. Dysuria - UA Macroscopic with reflex to Microscopic and Culture - Clinic Collect - Urine Microscopic Exam - Urine Culture 3. Flank pain -CBC is reassuring, there is no leukocytosis. CRP inflammation is normal. BMP shows normal electrolytes, creatinine is elevated but is at baseline. - CBC with platelets and differential - CRP, inflammation - Basic metabolic panel Results for orders placed or performed in visit on 06/15/24 UA Macroscopic with reflex to Microscopic and Culture - Clinic Collect Status: Abnormal Specimen: Urine, Clean Catch Result Value Ref Range Color Urine Yellow Colorless, Straw, Light Yellow, Yellow Appearance Urine Clear Clear Glucose Urine Negative Negative mg/dL Bilirubin Urine Small (A) Negative Ketones Urine 15 (A) Negative mg/dL Specific Union Urine >=1.030 1.003 - 1.035 Blood Urine Trace (A) Negative pH Urine 5.5 5.0 - 7.0 Protein Albumin Urine 100 (A) Negative mg/dL Urobilinogen Urine 0.2 0.2, 1.0 E.U./dL Nitrite Urine Negative Negative Leukocyte Esterase Urine Moderate (A) Negative Urine Microscopic Exam Status: Abnormal Result Value Ref Range Bacteria Urine Moderate (A) None Seen /HPF RBC Urine 2-5 (A) 0-2 /HPF /HPF WBC Urine >100 (A) 0-5 /HPF /HPF Squamous Epithelials Urine Few (A) None Seen /LPF CRP, inflammation Status: Normal Result Value Ref Range CRP Inflammation <3.00 <5.00 mg/L Basic metabolic panel Status: Abnormal Result Value Ref Range Sodium 143 135 - 145 mmol/L Potassium 4.6 3.4 - 5.3 mmol/L Chloride 106 98 - 107 mmol/L Carbon Dioxide (CO2) 26 22 - 29 mmol/L Anion Gap 11 7 - 15 mmol/L Urea Nitrogen 26.3 (H) 8.0 - 23.0 mg/dL Creatinine 1.18 (H) 0.51 - 0.95 mg/dL GFR Estimate 46 (L) >60 mL/min/1.73m2 Calcium 9.8 8.8 - 10.4 mg/dL Glucose 125 (H) 70 - 99 mg/dL CBC with platelets and differential Status: Abnormal Result Value Ref Range WBC Count 5.3 4.0 - 11.0 10e3/uL RBC Count 3.23 (L) 3.80 - 5.20 10e6/uL Hemoglobin 10.9 (L) 11.7 - 15.7 g/dL Hematocrit 34.2 (L) 35.0 - 47.0 % MCV 106 (H) 78 - 100 fL MCH 33.7 (H) 26.5 - 33.0 pg MCHC 31.9 31.5 - 36.5 g/dL RDW 13.3 10.0 - 15.0 % Platelet Count 302 150 - 450 10e3/uL % Neutrophils 65 % % Lymphocytes 26 % % Monocytes 8 % % Eosinophils 0 % % Basophils 0 % % Immature Granulocytes 1 % Absolute Neutrophils 3.4 1.6 - 8.3 10e3/uL Absolute Lymphocytes 1.4 0.8 - 5.3 10e3/uL Absolute Monocytes 0.4 0.0 - 1.3 10e3/uL Absolute Eosinophils 0.0 0.0 - 0.7 10e3/uL Absolute Basophils 0.0 0.0 - 0.2 10e3/uL Absolute Immature Granulocytes 0.0 <=0.4 10e3/uL CBC with platelets and differential Status: Abnormal Narrative The following orders were created for panel order CBC with platelets and differential. Procedure Abnormality Status --------- ------ CBC with platelets and d...[[id number]] Abnormal Final result Please view results for these tests on the individual orders. Patient Instructions You are being treated for kidney infection (complicated urinary tract infection) Take the medication prescribed as indicated Will follow-up if we need to change medication when urine culture results come back Follow-up in the emergency room if symptoms worsen any hour Return if symptoms worsen or fail to improve, for Follow up, 3- 5 days. At the end of the encounter, I discussed results, diagnosis, medications. Discussed red flags for immediate return to clinic/ER, as well as indications for follow up if no improvement. Patient understood and agreed to plan. Patient was stable for discharge. Delfina Ibrahim is a 84 year old female who presents to clinic today for the following health issues: Chief Complaint Patient presents with Urgent Care Urinary problem x 2 day, pain with urination,burning sensation, frequency,back pain, HPI Patient reports urinary symptoms restarted 2 days ago. She reports dysuria, frequency, right sided flank pain. She denies fever, chills, nausea. Has a history of chronic kidney disease stage III. GFR was 52, 3 months ago. Review of Systems Genitourinary: Positive for dysuria, frequency and urgency. Musculoskeletal: Positive for back pain. Problem List: 2024-02: Adverse effect of prednisone, sequela - weight gain 2023-06: Deconditioned low back 2023-05: Severe obesity (BMI 35.0-39.9) with comorbidity (H) - prediabetes, hypertension 2023-02: Urge incontinence of urine 2023-02: Dizziness 2022-12: Continuous opioid dependence (H) 2022-08: Rheumatoid arthritis involving multiple sites with positive rheumatoid factor (H) - Dr. Fransisco Eddy @ [facility] - on Humira & hydroxychloroquine 2022-08: Family history of clotting disorder 2022-08: Arthralgia, unspecified joint 2022-08: CSA signed - 03/10/2023- tramadol 50 mg #60 monthly, q6 month OV 2022-02: Chronic diarrhea 2022-02: Osteopenia -DEXA 09/30/2020 -repeat 2022-02: Osteoarthritis of spine with radiculopathy, lumbar region 2022-02: Vitamin B12 deficiency (non anemic) 2021-11: Deep vein thrombosis (DVT) of popliteal vein of left lower extremity, unspecified chronicity (H) 2021-11: Colon cancer (H) - s/p partial colectomy 2009 2021-11: Acute deep vein thrombosis (DVT) of femoral vein of left lower extremity (H) - due to hx of recurrence hematology recommends daily Xaralto 10 mg prophylaxis indefinitely. avoid Eliquis d/t colectomy 2021-11: DVT (deep venous thrombosis) (H) 2021-09: Rheumatoid factor positive - Rheumatology consultation 2011 was not concerned for RA - 2nd opinion planned 04/2022: Hip pain 2020-10: Chronic right-sided low back pain without sciatica 2019-09: Primary osteoarthritis involving multiple joints 2019-01: Hyperopia of both eyes with astigmatism and presbyopia 2017-04: Insomnia, unspecified type 2017-03: Benign hypertension with CKD (chronic kidney disease) stage III (H) 2017: Bilateral pseudophakia 2016-02: Sedative, hypnotic or anxiolytic dependence (H) 2015-02: Chronic pain 2014-03: Anxiety 2013-06: HTN, goal below 140/90 2013-06: Hyperlipidemia with target LDL less than 130 2012-03: Prediabetes 2011-12: CKD (chronic kidney disease) stage 2, GFR 60-89 ml/min 2011-11: Advanced directives, counseling/discussion 2011-09: Varicose veins of legs 2010-08: S/P knee replacement 2010-08: Seborrheic keratosis 2010-05: Eczema 2010-05: Hyperlipidemia LDL goal <160 2010-03: Hyperlipidemia LDL goal <100 2009-10: Personal history of colon cancer, stage I 2009-08: Colon polyps 2009-04: DJD (degenerative joint disease) of knee 2009-04: HTN (hypertension), benign 2008-03: Hypertension 2007-10: Hypercholesterolemia 2004-01: LEG VARICOSITY W INFLAM [454.1] 2004-01: Symptomatic menopausal or female climacteric states 2004-01: Insomnia Past Medical History: Diagnosis Date Cancer (H) Generalized osteoarthrosis, unspecified site Hypertension Personal history of colon cancer, stage II 2008 found on screening colonoscopy Social History Tobacco Use Smoking status: Former Current packs/day: 0.00 Average packs/day: 1 pack/day for 5.0 years (5.0 ttl pk-yrs) Types: Cigarettes Start date: 06/21/1963 Quit date: 06/21/1968 Years since quittin.0 Passive exposure: Past Smokeless tobacco: Never Tobacco comments: not a smoker Substance Use Topics Alcohol use: Yes Comment: rare 1 monthly Objective BP (!) 178/69 Pulse 64 Temp 98.2 ??F (36.8 ??C) (Oral) Resp 18 Wt 94.3 kg (208 lb) LMP (LMP Unknown) SpO2 97% BMI 38.04 kg/m?? Physical Exam Vitals and nursing note reviewed. Cardiovascular: Rate and Rhythm: Normal rate and regular rhythm. Pulmonary: Effort: Pulmonary effort is normal. Breath sounds: Normal breath sounds. Abdominal: General: Abdomen is flat. Palpations: Abdomen is soft. Tenderness: There is abdominal tenderness in the suprapubic area. There is right CVA tenderness. There is no left CVA tenderness. Lymphadenopathy: Cervical: No cervical adenopathy. Skin: General: Skin is warm and dry. Findings: No rash. Neurological: General: No focal deficit present. Mental Status: She is alert and oriented to person, place, and time. Psychiatric: Mood and Affect: Mood normal. Behavior: Behavior normal. Yamile James PA-C LE SORTER documented in this encounter Plan of Treatment Upcoming Encounters Date Type Department Care Team (Late st Contact Info) Description 09/07/2024 10:00 AM CDT Office Visit [address] [place] [phone] Fransisco Eddy MD [address] [place] [address] 03/29/2025 3:40 PM CDT Office Visit [address] [phone] Alfreda Ray PA-C [address] [place] [phone] documented as of this encounter Procedures Procedure Name Priority Date/Time Associated Diagnosis Comments CBC WITH PLATELETS AND DIFFERENTIAL STAT 06/15/2024 5:14 PM PICKLE SORTER Flank pain CBC WITH PLATELETS & DIFFERENTIAL STAT 06/15/2024 5:14 PM PICKLE SORTER Flank pain CRP INFLAMMATION STAT 06/15/2024 5:14 PM PICKLE SORTER Flank pain BASIC METABOLIC PANEL STAT 06/15/2024 5:14 PM PICKLE SORTER Flank pain UA MACROSCOPIC WITH REFLEX TO MICRO AND CULTURE Routine 06/15/2024 2:15 PM PICKLE SORTER Dysuria URINE MICROSCOPIC EXAM Routine 06/15/2024 2:15 PM PICKLE SORTER Dysuria URINE CULTURE Routine 06/15/2024 2:15 PM PICKLE SORTER Dysuria documented in this encounter Results * (ABNORMAL) CBC with platelets and differential (06/15/2024 5:14 PM PICKLE SORTER) WBC Count 5.3 4.0 - 11.0 10e3/uL 06/15/2024 5:37 PM [facility] RBC Count 3.23(L) 3.80 - 5.20 10e6/uL 06/15/2024 5:37 PM [facility] Hemoglobin 10.9(L) 11.7 - 15.7 g/dL 06/15/2024 5:37 PM [facility] Hematocrit 34.2(L) 35.0 - 47.0 % 06/15/2024 5:37 PM [facility] MCV 106(H) 78 - 100 fL 06/15/2024 5:37 PM [facility] MCH 33.7(H) 26.5 - 33.0 pg 06/15/2024 5:37 PM [facility] MCHC 31.9 31.5 - 36.5 g/dL 06/15/2024 5:37 PM [facility] RDW 13.3 10.0 - 15.0 % 06/15/2024 5:37 PM [facility] Platelet Count 302 150 - 450 10e3/uL 06/15/2024 5:37 PM [facility] % Neutrophils 65 % 06/15/2024 5:37 PM [facility] % Lymphocytes 26 % 06/15/2024 5:37 PM [facility] % Monocytes 8 % 06/15/2024 5:37 PM [facility] % Eosinophils 0 % 06/15/2024 5:37 PM [facility] % Basophils 0 % 06/15/2024 5:37 PM [facility] % Immature Granulocytes 1 % 06/15/2024 5:37 PM [facility] Absolute Neutrophils 3.4 1.6 - 8.3 10e3/uL 06/15/2024 5:37 PM [facility] Absolute Lymphocytes 1.4 0.8 - 5.3 10e3/uL 06/15/2024 5:37 PM [facility] Absolute Monocytes 0.4 0.0 - 1.3 10e3/uL 06/15/2024 5:37 PM [facility] Absolute Eosinophils 0.0 0.0 - 0.7 10e3/uL 06/15/2024 5:37 PM [facility] Absolute Basophils 0.0 0.0 - 0.2 10e3/uL 06/15/2024 5:37 PM [facility] Absolute Immature Granulocytes 0.0 <=0.4 10e3/uL 06/15/2024 5:37 PM [facility] Blood BLOOD SPECIMEN / Unknown Venipuncture / Unknown 06/15/2024 5:14 PM PICKLE SORTER 06/15/2024 5:14 PM PICKLE SORTER us Yamile James PA-C LAB - BLOOD ORDERABLES Final R esult LABORATORY [facility] [address] [facility] Lab (no room number, 1st floor of clinic) [place] [address], [facility] * (ABNORMAL) Basic metabolic panel (06/15/2024 5:14 PM PICKLE SORTER) Sodium 143 135 - 145 mmol/L 06/15/2024 7:09 PM [facility] Potassium 4.6 3.4 - 5.3 mmol/L 06/15/2024 7:09 PM [facility] Chloride 106 98 - 107 mmol/L 06/15/2024 7:09 PM [facility] Carbon Dioxide (CO2) 26 22 - 29 mmol/L 06/15/2024 7:09 PM [facility] Anion Gap 11 7 - 15 mmol/L 06/15/2024 7:09 PM [facility] Urea Nitrogen 26.3(H) 8.0 - 23.0 mg/dL 06/15/2024 7:09 PM [facility] Creatinine 1.18(H) 0.51 - 0.95 mg/dL 06/15/2024 7:09 PM [facility] GFR Estimate 46(L) >60 mL/min/1.7 3m2 06/15/2024 7:09 PM [facility] Comment:eGFR calculated us2020 CKD-EPI equation. Calcium 9.8 8.8 - 10.4 mg/dL 06/15/2024 7:09 PM [facility] Comment:Reference intervals for this test were updated on 01/04/2024 to reflect our healthy population more accurately. There may be differences in the flagging of prior results with similar values performed with this method. Those prior results can be interpreted in the context of the updated reference intervals. Glucose 125(H) 70 - 99 mg/dL 06/15/2024 7:09 PM [facility] Blood BLOOD SPECIMEN / Unknown Venipuncture / Unknown 06/15/2024 5:14 PM PICKLE SORTER 06/15/2024 5:14 PM PICKLE SORTER Yamile BORRERO-C LAB - BLOOD ORDERABLES Final R esult [facility] [address] Lab (1st floor, no room number) [address] * CRP, inflammation (06/15/2024 5:14 PM PICKLE SORTER) CRP Inflammation <3.00 <5.00 mg/L 06/15/20 7:09 PM [facility] Blood BLOOD SPECIMEN / Unknown Venipuncture / Unknown 06/15/2024 5:14 PM PICKLE SORTER 06/15/2024 5:14 PM PICKLE SORTER Yamile BORRERO-C LAB - BLOOD ORDERABLES Final R esult Performing Organization Address City/[facility]/ZIP Co de Phone Number [facility] [address] [facility], no room number[facility] [address] * (ABNORMAL) Urine Culture (06/15/2024 2:15 PM PICKLE SORTER) Culture 10,000-50,000 CFU/mL Enterobacter cloacae complex(A) 06/16/2024 11:19 PM PICKLE SORTER [facility] Urine URINE SPECIMEN OBTAINED BY CLEAN CATCH PROCEDURE / Unknown Non-blood Collection / Unknown 06/15/2024 2:15 PM PICKLE SORTER 06/15/2024 2:28 PM PICKLE SORTER Narrative Organism Antibiotic Method Susceptibility Enterobacter cloacae [...] ORDERABLES F inal Result [facility] Inf. Diseases Diag. Lab [address] [facility], [address] [place] [address], [facility] * (ABNORMAL) Urine Microscopic Exam (06/15/2024 2:15 PM PICKLE SORTER) Bacteria Urine Moderate( A) None Seen /HPF KAILYN 06/15/2024 2:35 PM [facility] RBC Urine 2-5(A) 0-2 /HPF /HPF KAILYN 06/15/2024 2:35 PM [facility] WBC Urine >100(A) 0-5 /HPF /HPF KAILYN 06/15/2024 2:35 PM [facility] Squamous Epithelials Urine Few(A) None Seen /LPF KAILYN 06/15/2024 2:35 PM [facility] Urine URINE SPECIMEN OBTAINED BY CLEAN CATCH PROCEDURE / Unknown Non-blood Collection / Unknown 06/15/2024 2:15 PM PICKLE SORTER 06/15/2024 2:15 PM PICKLE SORTER us Esteban Gant MD LAB - URINE ORDERABLES Final Res ult LABORATORY [facility] [address] [facility] Lab (no room number, [facility]st [facility] [place] [address], [facility] * (ABNORMAL) UA Macroscopic with reflex to Microscopic and Culture - Clinic Collect (06/15/2024 2:15 PM PICKLE SORTER) Color Urine Yellow Colorless, Straw, Light Yellow, Yellow 06/15/2024 2:28 PM [facility] Appearance Urine Clear Clear 06/15/20 2:28 PM [facility] Glucose Urine Negative Negative mg/dL 06/15/2024 2:28 PM [facility] Bilirubin Urine Small(A) Negative 2:28 PM [facility] Ketones Urine 15(A) Negative mg/dL 06/15/2024 2:28 PM [facility] Specific Union Urine >=1.030 1.003 - 1.035 06/15/2024 2:28 PM [facility] Blood Urine Trace(A) Negative 06/15/2024 2:28 PM [facility] pH Urine 5.5 5.0 - 7.0 06/15/2024 2:28 PM [facility] Protein Albumin Urine 100(A) Negative mg/dL 06/15/2024 2:28 PM [facility] Urobilinogen Urine 0.2 0.2, 1.0 E.U./dL 06/15/2024 2:28 PM [facility] Nitrite Urine Negative Negative 06/15/2024 2:28 PM [facility] Leukocyte Esterase Urine Moderate(A) Negative 06/15/2024 2:28 PM [facility] Urine URINE SPECIMEN OBTAINED BY CLEAN CATCH PROCEDURE / Unknown Non-blood Collection / Unknown 06/15/2024 2:15 PM PICKLE SORTER 06/15/2024 2:15 PM PICKLE SORTER us Esteban Gant MD LAB - URINE ORDERABLES Final Res ult LABORATORY [facility] [address] [facility] Lab (no room number, 1st floor of clinic) [place] [address], [facility] documented in this encounter Visit Diagnoses Diagnosis Complicated UTI (urinary tract infection)- Primary Urinary tract infection, site not specified Dysuria Flank pain Abdominal pain, unspecified site documented in this encounter Administered Medications Inactive Administered Medications - up to 3 most recent administrations Medication Order MAR Action Action Date Dose Rate Site cefTRIAXone (ROCEPHIN) in lidocaine 1% for IM administration 1 g Routine, 1 g (rounded from 1,000 mg), Intramuscular, ONCE, On Mona 06/15/24 at 1800, For 1 dose, Reconstitute 1 gm vial with 2.1 mL of 1% Lidocaine for final concentration of 350 mg/mL. For IM administration only., Indications: see associated diagnosis for clinic useIndications:see associated diagnosis for clinic use $Given 06/15/2024 5:59 PM PICKLE SORTER 1 g Right Gluteus Ethan documented in this encounter Additional Health Concerns Assessment Noted Time PHQ-9 Depression Total Score: 5 03/09/20 23 10:57 AM CDT documented as of this encounter Care Teams Bakery Team Leader Relationship Specialty Start Date End Date Alfreda Ray PA-C [address] [place] [id number] PCP - General Family Medicine 12/30/21 Alfreda Ray PA-C [address] [place] [address] Referring Physician Family Medicine 12/31/21 Katrin Orellana PA-C [address] [place] [address] [address] [place], [place] [phone] Physician Recruiting Manager Dermatology 12/31/21 Shanna Vang PA-C [address] [place], [place] [phone] Assigned Cancer Care Provider 01/10/22 Fransisco Eddy MD [address] [address] Assigned Rheumatology Provider 05/09/22 Cristina Hsieh [facility] [address] [place] [address] Pharmacist Pharmacist 09/07/22 Alfreda Ray PA-C [address] [place] [id number] Assigned PCP 08/29/22 Cristina Hsieh [facility] [address] [address] Assigned MTM Pharmacist 09/26/22 Dakota Tatum MD [address] [place] [address] Cardiovascular Disease 03/25/23 Dakota Tatum MD [address] [place] [address] Assigned Heart and Vascular Provider 05/01/23 [place] [address] [place] , [facility] [address] [place] [address] Assigned Musculoskeletal Provider 04/12/24 documented as of this encounter
--- OUTSIDE RECORDS SUMMARY | 2024-06-22 23:07 | XMS_ITS | Encounter Summary ---
Author Organization [place] Address [address] [place] [address] 26261 Care Team Providers Care Senior Information Security Consultant Name Role Phone Alfreda Ray PA-C Primary Care Provider + Alfreda Ray PA-C Unavailable [phone] Katrin Orellana PA-C Unavailable Shanna Vang-C Unavailable +[phone] Fransisco Eddy MD Unavailable Cristina Hsieh [facility] Unavailable Alfreda RayC Unavailable [phone] Cristina Hsieh [facility] Unavailable Dakota Tatum MD Unavailable Dakota Tatum MD Unavailable [phone] Srinivas Marie DO Unavailable [phone] Reason for Visit * Reason Onset Date Comments Referral 03/17/2024 Encounter Details Date Type Department Care Team (Late st Contact Info) Description 03/17/2024 Telephone [facility] [place] [phone], [address] [place] [address] Nurse, Vein Referral Social History Tobacco Use Types Packs/Day Years [...] re latives? Once a week 03/15/2024 Attends Bahai Services Not on file 03/15 Active Member of Clubs or Organizations Not on f ile 03/15/2024 Attends Club or Organization Meetings Not on anu e 03/15/2024 Marital Status Not on file 03/15/2024 PHQ-2 Answer Date Recorded PHQ-2 Score 0 03/16/2024 [facility] of Occupat ional Health - Occupational Stress [...] an abandoned building, in an overnight senior living, or couch-surfing.) Yes 03/15/2024 Are you worried [...] Sex Assigned at Female 08/17/2018 7:56 AM WEB ADMINISTRATOR Legal Sex Female 4:24 AM WEB ADMINISTRATOR Gender Identity Female 08/17/2018 7:56 AM WEB ADMINISTRATOR Sexual Orientation Straight 08/17/2018 7: 56 AM WEB ADMINISTRATOR documented as of this encounter Miscellaneous Notes * Telephone Encounter - Briseyda Carmen CMA - 03/17/2024 8:24 AM CDT 03/17/24 LVM FOR PATIENT TO SCHEDULE CONSULT IN [place]. documented in this encounter Plan of Treatment Upcoming Encounters Date Type Department Care Team (Late st Contact Info) Description 09/07/2024 10:00 AM CDT Office Visit [facility] Specialty [address] [phone] Fransisco Eddy MD [address] [place] [address] 758105 03/29/2025 3:40 PM CDT Office Visit [address] [phone] Alfreda Ray PA-C [address] [place] [address] 578992 documented as of this encounter Visit Diagnoses Not on filedocumented in this encounter Additional Health Concerns Assessment Noted Time PHQ-9 Depression Total Score: 5 03/09/20 23 10:57 AM CDT documented as of this encounter Care Teams Senior Information Security Consultant Relationship Specialty Start Date End Date Alfreda Ray PA-C [address] [place] [address] 82029 PCP - General Family Medicine 12/30/21 Alfreda Ray PA-C [address] [place] [address] 73465 Referring Physician Family Medicine 12/31/21 Katrin Orellana PA-C [address] [place] [address] 44179 Physician Chairman Of The Board Dermatology 12/31/21 Shanna Vang PA-C [address] [place] [address] 939254 Assigned Cancer Care Provider 01/10/22 Fransisco Eddy MD [address] [place] [address] [phone] Assigned Rheumatology Provider 05/09/22 Cristina Hsieh [facility] [address] [place] [address] LISBETH HERNANDEZ [address] Pharmacist Pharmacist 09/07/22 Alfreda Ray PA-C [address] [place] [address] 74766 Assigned PCP 08/29/22 Cristina Hsieh, [facility] [address] [facility] [address] [place] [address] Assigned MTM Pharmacist 09/26/22 Dakota Tatum MD [address] [place] [address] 555455 Cardiovascular Disease 03/25/23 Dakota Tatum MD [address] [place] [address] [phone] Assigned Heart and Vascular Provider 05/01/23 [place] [address] [address], [facility] [address] [place] [address] Assigned Musculoskeletal Provider 04/12/24 documented as of this encounter
--- OUTSIDE RECORDS SUMMARY | 2024-06-22 23:07 | XMS_ITS | Encounter Summary ---
Author Organization [place] Address [address] [place] [address] 43789 Care Team Providers Care Portable Canteen Operator Name Role Phone Alfreda Ray PA-C Primary Care Provider + Alfreda Ray PA-C Unavailable [phone] Katrin Orellana PA-C Unavailable [phone] Shanna Vang PA-C Unavailable +[phone] Fransisco Eddy MD Unavailable Cristina Hsieh [facility] Unavailable Alfreda Ray PA-C Unavailable [phone] Cristina Hsieh [facility] Unavailable Dakota Tatum MD Unavailable [phone] Dakota Tatum MD Unavailable [phone] Srinivas Marie DO Unavailable [phone] Reason for Visit * Reason Comments Derm Problem Entered automaticall y based on patient selection in [employer]. Encounter Details Date Type Department Care Team (Late st Contact Info) Description 06/07/2024 3:40 PM TAKE AWAY WORKER E-Visit [address] [phone] Alfreda Ray PA-C [address] [place] [address] 99277 Derm Problem (Entered automatically based ... Social History Tobacco Use Types Packs/Day Years [...] re latives? Once a week 03/15/2024 Attends Congregational Services Not on file 03/15 Active Member of Clubs or Organizations Not on f ile 03/15/2024 Attends Club or Organization Meetings Not on anu e 03/15/2024 Marital Status Not on file 03/15/2024 PHQ-2 Answer Date Recorded PHQ-2 Score 0 03/16/2024 [facility] of Occupat ional Health - [...] in an abandoned building, in an overnight chcf, or couch-surfing.) Yes 03/15/2024 Are you worried [...] Sex Assigned at Female 08/17/2018 7:56 AM TAKE AWAY WORKER Legal Sex Female 4:24 AM TAKE AWAY WORKER Gender Identity Female 08/17/2018 7:56 AM TAKE AWAY WORKER Sexual Orientation Straight 08/17/2018 7: 56 AM TAKE AWAY WORKER documented as of this encounter Miscellaneous Notes * Telephone Encounter - Alfreda Ray PA-C - 06/08/2024 3:29 PM TAKE AWAY WORKER Provider E-Visit time total (minutes): 6 minutes AWAY WORKER documented in this encounter Plan of Treatment Upcoming Encounters Date Type Department Care Team (Late st Contact Info) Description 09/07/2024 10:00 AM CDT Office Visit [facility] [address] [phone] Fransisco Eddy MD [address] [place] [address] [phone] 03/29/2025 3:40 PM CDT Office Visit [place] [phone] [place] [phone] Alfreda Ray PA-C [address] [place] [address] [phone] documented as of this encounter Visit Diagnoses Diagnosis 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 documented in this encounter Additional Health Concerns Assessment Noted Time PHQ-9 Depression Total Score: 5 03/09/20 23 10:57 AM CDT documented as of this encounter Care Teams Portable Canteen Operator Relationship Specialty Start Date End Date Alfreda Ray PA-C [address] [place] [address] [phone] PCP - General Family Medicine 12/30/21 Alfreda Ray PA-C [address] [place] [address] 950402 Referring Physician Family Medicine 12/31/21 Katrin Orellana PA-C [address] [place] [address] 98573 Physician Stabber Dermatology 12/31/21 Shanna Vang PA-C [facility] [address] [place] [address] 028394 Assigned Cancer Care Provider 01/10/22 Fransisco Eddy MD [address] [place] [address] [phone] Assigned Rheumatology Provider 05/09/22 Cirstina Hsieh, [facility] [address] [place] [address] LISBETH HERNANDEZ [address] Pharmacist Pharmacist 09/07/22 Alfreda Ray PA-C [address] [place] [address] 277752 Assigned PCP 08/29/22 Cristina Hsieh, [facility] [address] [address] Assigned MTM Pharmacist 09/26/22 Dakota Tatum MD [address] [place] [address] 355515 Cardiovascular Disease 03/25/23 Dakota Tatum MD [address] [place] [address] [phone] Assigned Heart and Vascular Provider 05/01/23 [place] [address] [place] , [facility] [address] [place] [address] Assigned Musculoskeletal Provider 04/12/24 documented as of this encounter
--- OUTSIDE RECORDS SUMMARY | 2024-06-22 23:08 | XMS_ITS | Encounter Summary ---
Author Organization [place] Address [address] [place] [address]756 Care Team Providers Care Business Risk Analyst Name Role Phone Esperanza Gatica MD Primary Care Provider + Esperanza Gatica MD Unavailable + Jesús Orourke MD Unavailable Alfreda Ray-C Primary Care Provider + Alfreda RayC Unavailable +[phone] Katrin Orellana PA-C Unavailable [phone] Shanna Vang PA-C Unavailable [phone] Fransisco Eddy MD Unavailable [phone] Esperanza Gatica MD Unavailable + Esperanza Gatica MD Unavailable + Katrin OrellanaC Unavailable [phone] Cristina Hsieh [facility] Unavailable [phone] Alfreda Ray PA-C Unavailable +[phone] Alfreda Ray PA-C Unavailable +[phone] Cristina Hsieh [facility] Unavailable [phone] Dakota Tatum MD Unavailable Dakota Tatum MD Unavailable [phone] Srinivas Marie Unavailable [phone] Encounter Details Date Type Department Care Team (Late Contact Info) Description 04/09/2021 MyC Medical Advice [facility] [address] [place] [phone] [place] [address] [place] [address] Social History Tobacco Use Types Packs/Day Years Used Date Smoking Tobacco: Former Cigarettes 1 5 0 06/21/1963 - 06/21/1968 Smokeless Tobacco: Never Comments:not a smoker Alcohol Use Standard Drinks/Week Comments Yes 0 (1 standard drink = 0.6 oz pur e alcohol) Occasionally - 1 per week PHQ-2 Answer Date Recorded PHQ-2 Score 0 02/27/2021 Comments No Sex and Gender Information Value Date Recorded Sex Assigned at Female 08/17/2018 7:56 AM RAKER BUFFING WHEEL Legal Sex Female 4:24 AM RAKER BUFFING WHEEL Gender Identity Female 08/17/2018 7:56 AM RAKER BUFFING WHEEL Sexual Orientation Straight 08/17/2018 7: 56 AM RAKER BUFFING WHEEL COVID-19 Exposure Response Date Recorded In the last month, have you been in contact with someone who was confirmed or suspected to have Coronavirus / COVID-19? No / Unsure 04/02/2021 10:04 AM CDT documented as of this encounter Plan of Treatment Upcoming Encounters Date Type Department Care Team (Late st Contact Info) Description 09/07/2024 10:00 AM CDT Office Visit [facility] [address] [place] [address] Fransisco Eddy MD [address] [place] [address] 03/29/2025 3:40 PM CDT Office Visit [address] [phone] Alfreda Ray PA-C [address] [place] [address] documented as of this encounter Visit Diagnoses Not on filedocumented in this encounter Additional Health Concerns Infection Onset Date Last Indicated Resolved Time Rule Out COVID-19 05/08/2021 05/08/2021 05/09/2021 9:08 PM RAKER BUFFING WHEEL Assessment Noted Time PHQ-9 Depression Total Score: 0 08/31/19 21 11:22 AM RAKER BUFFING WHEEL documented as of this encounter Care Teams Business Risk Analyst Relationship Specialty Start Date End Date Esperanza Gatica MD PCP - General Family Practice 10/13/11 12/29/21 Alfreda Ray PA-C [address] [place] [address] 37074 PCP - General Family Medicine 12/30/21 [place] [address] [facility] [place] [address] Assigned PCP 09/29/20 07/31/22 Jesú[place] [address] [place] [address] Assigned Musculoskeletal Provider 10/20/20 04/17/22 Alfreda Ray PA-C [address] [place] [address] 899802 Referring Physician Family Medicine 12/31/21 Katrin Orellana PA-C [address] [place] [address] Physician Financial Services Director Dermatology 12/31/21 Shanna Vang PA-C [address] [place] [address] Assigned Cancer Care Provider 01/10/22 Fransisco Eddy MD [address] [place] [address] 88 [place] [address] Assigned Rheumatology Provider 05/09/22 [place] [address] [place] [address] Assigned Pain Medication Provider 06/29/22 09/04/22 [place] [address] [place] [address] Assigned PCP 08/15/22 08/28/22 Katrin Orellana PA-C [address] [place] [address] 444315 Assigned Surgical Provider 08/15/22 02/10/24 Cristina Hsieh [facility] [address] [place] [address] LISBETH HERNANDEZ [address] Pharmacist Pharmacist 09/07/22 Alfreda Ray PA-C [address] [place] [address] 845352 Assigned Pain Medication Provider 09/05/22 09/10/23 Alfreda Ray PA-C [address] [place] [address] 921352 Assigned PCP 08/29/22 Cristina Hsieh, [facility] [address] [facility] [address] [place] [address] Assigned MTM Pharmacist 09/26/22 Dakota Tatum MD [address] [place] [address] 715245 Cardiovascular Disease 03/25/23 Dakota Tatum MD [address] [place] [address] 291475 Assigned Heart and Vascular Provider 05/01/23 [place] [address] [address], [facility] [address] [place] [address] Assigned Musculoskeletal Provider 04/12/24 documented as of this encounter
--- OUTSIDE RECORDS SUMMARY | 2024-06-22 23:08 | XMS_ITS | Encounter Summary ---
Author Organization [place] Address [address] [place] [address] 54281 Care Team Providers Care Pre Sales Systems Engineer Name Role Phone Esperanza Gatica MD Primary Care Provider + Esperanza Gatica MD Unavailable + Jesús Orourke MD Unavailable Alfreda Ray-C Primary Care Provider + Alfreda RayC Unavailable +[phone] Katrin Orellana PA-C Unavailable +[phone] Shanna Vang PA-C Unavailable +[phone] Fransisco Eddy MD Unavailable +[phone] Esperanza Gatica MD Unavailable + Esperanza Gatica MD Unavailable + Katrin OrellanaC Unavailable +[phone] Cristina Hsieh [facility] Unavailable [phone] Alfreda Ray PA-C Unavailable +[phone] Alfreda Ray PA-C Unavailable +[phone] Cristina Hsieh [facility] Unavailable [phone] Dakota Tatum MD Unavailable Dakota Tatum MD Unavailable + [phone] Srinivas Marie DO Unavailable [phone] Reason for Visit * Reason Onset Date Comments MyChart Communication 04/07/2021 Medication question-HCTZ Encounter Details Date Type Department Care Team (Late st Contact Info) Description 04/07/2021 MyC Medical Advice [facility] [address] [place] [address] [place] [id number] [place] [address] MyChart Communication (Medication question... Social History Tobacco Use Types Packs/Day Years [...] Sex Assigned at Female 08/17/2018 7:56 AM HUMAN FACTORS SPECIALIST Legal Sex Female 4:24 AM HUMAN FACTORS SPECIALIST Gender Identity Female 08/17/2018 7:56 AM HUMAN FACTORS SPECIALIST Sexual Orientation Straight 08/17/2018 7: 56 AM HUMAN FACTORS SPECIALIST COVID-19 Exposure Response Date Recorded In the last month, have you been in contact with someone who was confirmed or suspected to have Coronavirus / COVID-19? No / Unsure 04/02/2021 10:04 AM CDT documented as of this encounter Plan of Treatment Upcoming Encounters Date Type Department Care Team (Late st Contact Info) Description 09/07/2024 10:00 AM CDT Office Visit [facility] [address] [phone] Fransisco Eddy MD [address] [place] [address] [phone] 03/29/2025 3:40 PM CDT Office Visit [address] [phone] Alfreda Ray PA-C [address] [place] [address] documented as of this encounter Visit Diagnoses Not on filedocumented in this encounter Additional Health Concerns Infection Onset Date Last Indicated Resolved Time Rule Out COVID-19 05/08/2021 05/08/2021 05/09/2021 9:08 PM HUMAN FACTORS SPECIALIST Assessment Noted Time PHQ-9 Depression Total Score: 0 08/31/19 21 11:22 AM HUMAN FACTORS SPECIALIST documented as of this encounter Care Teams Pre Sales Systems Engineer Relationship Specialty Start Date End Date Esperanza Gatica MD PCP - General Family Practice 10/13/11 12/29/21 Alfreda Ray PA-C [address] [place] [address]310 PCP - General Family Medicine 12/30/21 [place] [address] [place] [address] Assigned PCP 09/29/20 07/31/22 Jesú[place] [address] [place] [address] [place] [address] 25[address] Assigned Musculoskeletal Provider 10/20/20 04/17/22 Alfreda Ray PA-C [address] [place] [address] Referring Physician Family Medicine 12/31/21 Katrin Orellana PA-C [address] [place] [address] [place] [address] Physician Pierce And Shave Press Operator Dermatology 12/31/21 Shanna Vang PA-C [address] [place] [address] Assigned Cancer Care Provider 01/10/22 Fransisco Eddy MD [address] [place] [address] 22633 Assigned Rheumatology Provider 05/09/22 [place] [address] [place] [address] Assigned Pain Medication Provider 06/29/22 09/04/22 [place] [address] [place] [address] Assigned PCP 08/15/22 08/28/22 Katrin Orellana PA-C [address] [address] Assigned Surgical Provider 08/15/22 02/10/24 Cristina Hsieh [facility] [address] [place] [address] [place] [address] Pharmacist Pharmacist 09/07/22 Alfreda Ray PA-C [address] [place] [address] Assigned Pain Medication Provider 09/05/22 09/10/23 Alfreda Ray PA-C [facility] [place] [address] Assigned PCP 08/29/22 Cristina Hsieh, [facility] [address] [facility] 101 [place] [address] Assigned MTM Pharmacist 09/26/22 Dakota Tatum MD [address] [place] [address] Cardiovascular Disease 03/25/23 Dakota Tatum MD [address] [place] [address]85 Assigned Heart and Vascular Provider 05/01/23 [place] [address] CE[address], [facility] [[email or web address]] [address] [place] [address] Assigned Musculoskeletal Provider 04/12/24 documented as of this encounter
--- OUTSIDE RECORDS SUMMARY | 2024-06-22 23:08 | XMS_ITS | Encounter Summary ---
Author Organization [place] Address [address] [place] [address] Care Team Providers Care Merchandising Execution Manager Name Role Phone Esperanza Gatica MD Primary Care Provider + Esperanza Gatica MD Unavailable + Jesús Orourke MD Unavailable Alfreda Ray-C Primary Care Provider + Alfreda RayC Unavailable +[phone] Katrin Orellana PA-C Unavailable +[phone] Shanna Vang PA-C Unavailable [phone] Fransisco Eddy MD Unavailable [phone] Esperanza Gatica MD Unavailable + Esperanza Gatica MD Unavailable + Katrin OrellanaC Unavailable +[phone] Cristina Hsieh [facility] Unavailable [phone] Alfreda Ray PA-C Unavailable +[phone] Alfreda Ray PA-C Unavailable +2600 Cristina Hsieh [facility] Unavailable [phone] Dakota Tatum MD Unavailable Dakota Tatum MD Unavailable + [phone] Srinivas Marie DO Unavailable [phone] Reason for Visit * Reason Onset Date Comments Hip Pain 01/17/2021 Encounter Details Date Type Department Care Team (Late st Contact Info) Description 01/17/2021 MyC Medical Advice [facility] [address] [place] [address] [place] [address] [place] [address] Hip Pain Social History Tobacco Use Types Packs/Day Years Used Date Smoking Tobacco: Former Cigarettes 1 5 0 06/21/1963 - 06/21/1968 Smokeless Tobacco: Never Comments:not a smoker Alcohol Use Standard Drinks/Week Comments Yes 0 (1 standard drink = 0.6 oz pur e alcohol) Occasionally - 1 per week PHQ-2 Answer Date Recorded PHQ-2 Score 0 08/30/2020 Comments No Sex and Gender Information Value Date Recorded Sex Assigned at Female 08/17/2018 7:56 AM INSOLE RASPER Legal Sex Female 4:24 AM INSOLE RASPER Gender Identity Female 08/17/2018 7:56 AM INSOLE RASPER Sexual Orientation Straight 08/17/2018 7: 56 AM INSOLE RASPER COVID-19 Exposure Response Date Recorded In the last month, have you been in contact with someone who was confirmed or suspected to have Coronavirus / COVID-19? No / Unsure 12/31/2020 8:35 AM CDT documented as of this encounter Miscellaneous Notes * Telephone Encounter - So Mathur RN - 01/21/2021 10:12 AM CDT Called the pt and advised of below. Appt was scheduled. * Telephone Encounter - Esperanza Gatica MD - 01/21/2021 8:42 AM CDT Increasing pain meds via email is not recommended. I would be happy to talk to her virtually or in person documented in this encounter Plan of Treatment Upcoming Encounters Date Type Department Care Team (Late st Contact Info) Description 09/07/2024 10:00 AM CDT Office Visit [facility] [address] [place] [phone] Fransisco Eddy MD [address] [place] [address] 03/29/2025 3:40 PM CDT Office Visit [address] [phone] Alfreda Ray PA-C [address] [place] [address] [phone] documented as of this encounter Visit Diagnoses Not on filedocumented in this encounter Additional Health Concerns Infection Onset Date Last Indicated Resolved Time Rule Out COVID-19 05/08/2021 05/08/2021 05/09/2021 9:08 PM INSOLE RASPER Assessment Noted Time PHQ-9 Depression Total Score: 0 08/31/19 21 11:22 AM INSOLE RASPER documented as of this encounter Care Teams Merchandising Execution Manager Relationship Specialty Start Date End Date Esperanza Gatica MD PCP - General Family Practice 10/13/11 12/29/21 Alfreda Ray PA-C [address] [place] [address] 189552 PCP - General Family Medicine 12/30/21 [place] [address] [place] [address] Assigned PCP 09/29/20 07/31/22 [place] [address] [address] [facility] [place] [address] Assigned Musculoskeletal Provider 10/20/20 04/17/22 Alfreda Ray PA-C [address] [place] [address] 920472 Referring Physician Family Medicine 12/31/21 Katrni Orellana PA-C [address] [place] [address] 846365 Physician Spiral Binder Dermatology 12/31/21 Shanna Vang PA-C [address] 425144 Assigned Cancer Care Provider 01/10/22 Fransisco Eddy MD [address] [place] [address] 424765 Assigned Rheumatology Provider 05/09/22 [place] [address] LISB[address] GARCIA [address] Assigned Pain Medication Provider 06/29/22 09/04/22 [place] [address] [address] GARCIA [address] Assigned PCP 08/15/22 08/28/22 Katrin Orellana PA-C [address] [place] [address] 767655 Assigned Surgical Provider 08/15/22 02/10/24 Cristina Hsieh [facility] [address] [facility] LISBETH HERNANDEZ [address] Pharmacist Pharmacist 09/07/22 Alfreda Ray PA-C [address] [place] [address] 542572 Assigned Pain Medication Provider 09/05/22 09/10/23 Alfreda Ray PA-C [address] [place] [address] 269422 Assigned PCP 08/29/22 Cristina Hsieh [facility] [address] [place] [address] Assigned MTM Pharmacist 09/26/22 Dakota Tatum MD [address] [place] [address] Cardiovascular Disease 03/25/23 Dakota Tatum MD [address] [place] [address] Assigned Heart and Vascular Provider 05/01/23 [place] [address] [address] , [address] [address] Assigned Musculoskeletal Provider 04/12/24 documented as of this encounter
--- OUTSIDE RECORDS SUMMARY | 2024-06-22 23:08 | XMS_ITS | Encounter Summary ---
Author Organization [facility] Address [address] [place] [address] Care Team Providers Care Mechanical Project Manager Name Role Phone Esperanza Gatica MD Primary Care Provider + Esperanza Gatica MD Unavailable + Jesús Orourke MD Unavailable Alfreda Ray-C Primary Care Provider + Alfreda RayC Unavailable +[phone] Katrin Orellana PA-C Unavailable +[phone] Shanna Vang PA-C Unavailable +[phone] Fransisco Eddy MD Unavailable +[phone] Esperanza Gatica MD Unavailable + Esperanza Gatica MD Unavailable + Katrin OrellanaC Unavailable +[phone] Cristina Hsieh [facility] Unavailable +[phone] Alfreda Ray PA-C Unavailable +[phone] Alfreda Ray PA-C Unavailable +[phone] Cristina Hsieh [facility] Unavailable +[phone] Dakota Tatum MD Unavailable Dakota Tatum MD Unavailable +[phone] Srinivas Marie Unavailable +[phone] Encounter Details Date Type Department Care Team (Late st Contact Info) Description 06/16/[address] [facility] [address] [place] [phone] [place] [address] [place] [address] Social History Tobacco Use Types [...] Sex Assigned at Female 08/17/2018 7:56 AM SIGNS CLEANER Legal Sex Female 4:24 AM SIGNS CLEANER Gender Identity Female 08/17/2018 7:56 AM SIGNS CLEANER Sexual Orientation Straight 08/17/2018 7: 56 AM SIGNS CLEANER documented as of this encounter Plan of Treatment Upcoming Encounters Date Type Department Care Team (Late st Contact Info) Description 09/07/2024 10:00 AM CDT Office Visit [facility] [address] [phone] Fransisco Eddy MD [address] [place] [address] 878875 03/29/2025 3:40 PM CDT Office Visit [address] [place] [phone] Alfreda Ray PA-C [address] [place] [address] [phone] documented as of this encounter Visit Diagnoses Not on filedocumented in this encounter Additional Health Concerns Assessment Noted Time PHQ-9 Depression Total Score: 0 08/31/19 21 11:22 AM SIGNS CLEANER documented as of this encounter Care Teams Mechanical Project Manager Relationship Specialty Start Date End Date Esperanza Gatica MD PCP - General Family Practice 10/13/11 12/29/21 Alfreda Ray PA-C [address] [place] [address] PCP - General Family Medicine 12/30/21 [place] [address] [place] [address] Assigned PCP 09/29/20 07/31/22 Jesú[place] [address] [address] Assigned Musculoskeletal Provider 10/20/20 04/17/22 Alfreda Ray PA-C [address] [place] [address] [phone] Referring Physician Family Medicine 12/31/21 Katrin Orellana PA-C [address] [place] [address] 14874 Physician Retail Coverage Merchandiser Dermatology 12/31/21 Shanna Vang PA-C [address] [place] [address] 24598 Assigned Cancer Care Provider 01/10/22 Fransisco Eddy MD [address] [place] [address]181 Assigned Rheumatology Provider 05/09/22 [place] [address] [place] [address] Assigned Pain Medication Provider 06/29/22 09/04/22 [place] [address] [place] [address] Assigned PCP 08/15/22 08/28/22 Katrin Orellana PA-C [address] [place] [address] 9[address] Assigned Surgical Provider 08/15/22 02/10/24 Cristina Hsieh [facility] [address] [place] [address] [place] [address] Pharmacist Pharmacist 09/07/22 Alfreda Ray PA-C [address] [place] [address] 648552 Assigned Pain Medication Provider 09/05/22 09/10/23 Alfreda Ray PA-C [address] [place] [address] 647252 Assigned PCP 08/29/22 Cristina Hsieh [facility] [address] [address] Assigned MTM Pharmacist 09/26/22 Dakota Tatum MD [address] [place] [address] Cardiovascular Disease 03/25/23 Dakota Tatum MD [address] [place] [address] Assigned Heart and Vascular Provider 05/01/23 [place] [address] [address]UM, [address] [address] Assigned Musculoskeletal Provider 04/12/24 documented as of this encounter
--- OUTSIDE RECORDS SUMMARY | 2024-06-22 23:08 | XMS_ITS | Encounter Summary ---
Author Organization [facility] Address [address] [place] [address] Care Team Providers Care Carbon Plant Grinder Name Role Phone Esperanza Gatica MD Primary Care Provider + Esperanza Gatica MD Unavailable + Jesús Orourke MD Unavailable Alfreda Ray-C Primary Care Provider + Alfreda RayC Unavailable +[phone] Katrin Orellana PA-C Unavailable +[phone] Shanna Vang PA-C Unavailable +[phone] Fransisco Eddy MD Unavailable +[phone] Esperanza Gatica MD Unavailable + Esperanza Gatica MD Unavailable + Katrin OrellanaC Unavailable +[phone] Cristina Hsieh [facility] Unavailable +[phone] Alfreda Ray PA-C Unavailable +[phone] Alfreda Ray PA-C Unavailable +[phone] Cristina Hsieh [facility] Unavailable +[phone] Dakota Tatum MD Unavailable Dkaota Tatum MD Unavailable + [phone] Srinivas Marie DO Unavailable [phone] Reason for Referral * Consultation (Routine: Next available opening) - Closed Specialty Diagnoses / Procedures Referred By Contmarcus t Referred To Contact Rheumatology Diagnoses Rheumatoid factor positive Polyarthralgia Alfreda Ray PA-C [address] [place] [address] Phone: tel: fax: Referral ID Status Reason Start Date Expiration Date Visits Re quested Visits Authorized [id number] Closed 10/07/2021 10/07/2022 1 1 Question Answer Reason for Referral Joint Pain, Other (Use Comments) - POS RA - persistent joint pain Scheduling Instructions: [facility] Rheumatology Sql Consultant will call you to coordinate your care as prescribed by your provider. A patient accounting representative will call you within 1 business day to help schedule your appointment, or you may contact the Sql Consultant Water Quality Tester at [phone]. Comments Please be aware that coverage of these services is subject to the terms and limitations of your health insurance plan. Call member services at your health plan with any benefit or coverage questions. [facility] Rheumatology Sql Consultant will call you to coordinate your care as prescribed by your provider. A patient accounting representative will call you within 1 business day to help schedule your appointment, or you may contact the Sql Consultant Water Quality Tester at [phone]. Reason for Visit * Reason Onset Date Comments MyChart Communication 10/05/2021 Encounter Details Date Type Department Care Team (Late st Contact Info) Description 10/05/2021 MyC Medical Advice [address] [place] [phone] Alfreda Ray PA-C [address] [place] [address] [phone] MyChart Communication Social History Tobacco Use Types Packs/Day Years Used Date Smoking Tobacco: Former Cigarettes 1 5 0 06/21/1963 - 06/21/1968 Smokeless Tobacco: Never Comments:not a smoker Alcohol Use Standard Drinks/Week Comments Yes 0 (1 standard drink = 0.6 oz pur e alcohol) Occasionally - 1 per week PHQ-2 Answer Date Recorded PHQ-2 Score 0 09/04/2021 Comments No Sex and Gender Information Value Date Recorded Sex Assigned at Female 08/17/2018 7:56 AM HAND I CUTTER Legal Sex Female 4:24 AM HAND I CUTTER Gender Identity Female 08/17/2018 7:56 AM HAND I CUTTER Sexual Orientation Straight 08/17/2018 7: 56 AM HAND I CUTTER COVID-19 Exposure Response Date Recorded In the last 10 days, have yo u been in contact with someone who was confirmed or suspected to have Coronavirus/COVID-19? No / Unsure 09/29/2021 2:08 PM CDT documented as of this encounter Miscellaneous Notes * Telephone Encounter - Camila Ackerman RN - 10/07/2021 10:10 AM CDT Please see my chart message below Please review and advise Thank you Camila Ackerman RN, BSN Mcewen Triage documented in this encounter Plan of Treatment Upcoming Encounters Date Type Department Care Team (Late st Contact Info) Description 09/07/2024 10:00 AM CDT Office Visit [facility] [address] [phone] Fransisco Eddy MD [address] [place] [address] 03/29/2025 3:40 PM CDT Office Visit [address] [phone] Alfreda Ray PA-C [address] [place] [address] [phone] Scheduled Referrals Name Type Priority Associated Diagnoses Order Schedule Adult Rheumatology Sql Consultant Referral Referral Routine: Next available opening Rheumatoid factor positive Polyarthralgia Expected: 10/07/2021 (Approximate), Expires: 10/07/2022 documented as of this encounter Visit Diagnoses Diagnosis Rheumatoid factor positive- Primary Other and unspecified nonspecific immunological findings Polyarthralgia Pain in joint, multiple sites documented in this encounter Additional Health Concerns Assessment Noted Time PHQ-9 Depression Total Score: 4 09/05/19 22 10:39 AM CDT documented as of this encounter Care Teams Carbon Plant Grinder Relationship Specialty Start Date End Date Esperanza Gatica MD PCP - General Family Practice 10/13/11 12/29/21 Alfreda Ray PA-C [address] [place] [address] PCP - General Family Medicine 12/30/21 [place] [address] [place] [address] Assigned PCP 09/29/20 07/31/22 Jesú[place] [address] [place] [address] Assigned Musculoskeletal Provider 10/20/20 04/17/22 Alfreda Ray PA-C [address] [place] [address] Referring Physician Family Medicine 12/31/21 Katrin Orellana PA-C [address] [place] [address] Physician Speech Communication Professor Dermatology 12/31/21 Shanna Vang PA-C [address] [place] [address] Assigned Cancer Care Provider 01/10/22 Fransisco Eddy MD [address] [place] [address] 88 [place] [address] Assigned Rheumatology Provider 05/09/22 [place] [address] [place] [address] Assigned Pain Medication Provider 06/29/22 09/04/22 [place] [address] [address] [facility] [place] [address] Assigned PCP 08/15/22 08/28/22 Katrin Orellana PA-C [address] [place] [address] 98 [place] [address] Assigned Surgical Provider 08/15/22 02/10/24 Cristina Hsieh [facility] [address] [facility] LISBETH HERNANDEZ [address] Pharmacist Pharmacist 09/07/22 Alfreda Ray PA-C [address] [place] [address] Assigned Pain Medication Provider 09/05/22 09/10/23 Alfreda Ray PA-C [address] [place] [address]69 Assigned PCP 08/29/22 Cristina Hsieh [facility] [address] [facility] [address] [place] [address] Assigned MTM Pharmacist 09/26/22 Dakota Tatum MD [address] [place] [address] Cardiovascular Disease 03/25/23 Dakota Tatum MD [address] [place] [address] Assigned Heart and Vascular Provider 05/01/23 [place] [address] CE[address] GASTELUM, [facility] [[email or web address]] [address] [place] [address] Assigned Musculoskeletal Provider 04/12/24 documented as of this encounter
--- OUTSIDE RECORDS SUMMARY | 2024-06-22 23:08 | XMS_ITS | Encounter Summary ---
Author Organization [facility] Address [address] [place] [address] Care Team Providers Care Manager Of Disaster Recovery Name Role Phone Alfreda Ray PA-C Primary Care Provider + Alfreda Ray PA-C Unavailable [phone] Katrin Orellana PA-C Unavailable [phone] Shanna Vang PA-C Unavailable [phone] Fransisco Eddy MD Unavailable [phone] Katrin Orellana PA-C Unavailable [phone] Cristina Hsieh [facility] Unavailable [phone] Alfreda Ray PA-C Unavailable + [phone] Alfreda Ray PA-C Unavailable [phone] Cristina Hsieh [facility] Unavailable [phone] Dakota Tatum MD Unavailable + [phone] Dakota Tatum MD Unavailable + [phone] Srinivas Marie DO Unavailable [phone] Reason for Visit * Reason Onset Date Comments Refill Request 04/06/2023 predniSONE (DELT ASONE) 5 MG tablet Encounter Details Date Type Department Care Team (Late st Contact Info) Description 04/06/2023 [facility] Specialty [address] [phone] Fransisco Eddy MD [address] [place] [address] [phone] Refill Request (predniSONE (DELTASONE) 5 MG tablet) Social History Tobacco Use Types Packs/Day Years [...] School Help Needed Not on file 03/12 Interpersonal Safety Answer Date Record ed Do [...] Sex Assigned at Female 08/17/2018 7:56 AM APPLICATION SECURITY CONSULTANT Legal Sex Female 4:24 AM APPLICATION SECURITY CONSULTANT Gender Identity Female 08/17/2018 7:56 AM APPLICATION SECURITY CONSULTANT Sexual Orientation Straight 08/17/2018 7: 56 AM APPLICATION SECURITY CONSULTANT COVID-19 Exposure Response Date Recorded In the last 10 days, have yo u been in contact with someone who was confirmed or suspected to have Coronavirus/COVID-19? No / Unsure 03/17/2023 4:13 PM CDT documented as of this encounter Miscellaneous Notes * Telephone Encounter - Asim Oshea RN - 04/08/2023 9:18 AM CDT Medication/Dose: predniSONE (DELTASONE) 5 MG tablet Last Written : 11/24/22 Last Quantity: 90, # refills: 2 Last Office Visit : 11/05/[address] Eddy and 03/04/23 with Cristina Hsieh [facility] Pending appointment: Apr 15, 2023 11:30 AM Pharmacist Visit with Cristina Hsieh RPH [facility] [place] ([facility] ) [address] [facility] [phone] Jun 17, 2023 1:30 PM (Arrive by 1:15 PM) Return Visit with Fransisco Eddy MD [facility] Specialty [facility] ([facility] ) [address] [place] [phone] Per YUSRA Evans's last note, pt is to be taking 5 mg daily until seen by her, Prescription not on Protocol, and routed to provider to review different dosing. 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) documented in this encounter Additional Health Concerns Assessment Noted Time PHQ-9 Depression Total Score: 5 03/09/20 23 10:57 AM CDT documented as of this encounter Care Teams Manager Of Disaster Recovery Relationship Specialty Start Date End Date Alfreda Ray PA-C [address] [place] [address] 11905 PCP - General Family Medicine 12/30/21 Alfreda Ray PA-C [address] [place] [address] Referring Physician Family Medicine 12/31/21 Katrin Orellana PA-C [address] [place] [address]991 Physician Electroplating Technician Dermatology 12/31/21 Shanna Vang PA-C [address] [place] [address] Assigned Cancer Care Provider 01/10/22 Fransisco Eddy MD [address] [place] [address] Assigned Rheumatology Provider 05/09/22 Katrin Orellana PA-C [address] [place] [address] 922855 Assigned Surgical Provider 08/15/22 02/10/24 Cristina Hsieh [facility] [address] [place] [address] LISBETH HERNANDEZ [address] Pharmacist Pharmacist 09/07/22 Alfreda Ray PA-C [address] [place] [address] Assigned Pain Medication Provider 09/05/22 09/10/23 Alfreda Ray PA-C [address] [place] [address] Assigned PCP 08/29/22 Cristina Hsieh, [facility] [address] [address] Assigned MTM Pharmacist 09/26/22 Dakota Tatum MD [address] [place] [address]37 Cardiovascular Disease 03/25/23 Dakota Tatum MD [address] [place] [address] Assigned Heart and Vascular Provider 05/01/23 [place] [address] CELE GASTELUM, [facility] [address] [place] [address] Assigned Musculoskeletal Provider 04/12/24 documented as of this encounter
--- OUTSIDE RECORDS SUMMARY | 2024-06-22 23:08 | XMS_ITS | Encounter Summary ---
Author Organization [facility] Address [address] [place] [address] Care Team Providers Care Paste Worker Name Role Phone Alfreda Ray PA-C Primary Care Provider + Alfreda Ray PA-C Unavailable + [phone] Katrin Orellana PA-C Unavailable [phone] Shanna Vang PA-C Unavailable +[phone] Fransisco Eddy MD Unavailable [phone] Esperanza Gatica MD Unavailable +[phone] Esperanza Gatica MD Unavailable +[phone] Katrin Orellana PA-C Unavailable [phone] Cristina Hsieh [facility] Unavailable +[phone] Alfreda Ray PA-C Unavailable + [phone] Alfreda Ray PA-C Unavailable + [phone] Cristina Hsieh [facility] Unavailable [phone] Dakota Tatum MD Unavailable + [phone] Dakota Tatum MD Unavailable + [phone] Srinivas Marie DO Unavailable [phone] Encounter Details Date Type Department Care Team (Late st Contact Info) Description 08/27/2022 MyC Medical Advice [facility] [address] [place] [phone] Mindy Herron Social History Tobacco Use Types Packs/Day Years Used Date Smoking Tobacco: Former Cigarettes 1 5 0 06/21/1963 - 06/21/1968 Smokeless Tobacco: Never Comments:not a smoker Alcohol Use Standard Drinks/Week Comments Yes 0 (1 standard drink = 0.6 oz pur e alcohol) rare 1 monthly PHQ-2 Answer Date Recorded PHQ-2 Score 0 08/26/2022 Comments No Sex and Gender Information Value Date Recorded Sex Assigned at Female 08/17/2018 7:56 AM ROLLED SEAT TRIMMER Legal Sex Female 4:24 AM ROLLED SEAT TRIMMER Gender Identity Female 08/17/2018 7:56 AM ROLLED SEAT TRIMMER Sexual Orientation Straight 08/17/2018 7: 56 AM ROLLED SEAT TRIMMER COVID-19 Exposure Response Date Recorded In the last 10 days, have yo u been in contact with someone who was confirmed or suspected to have Coronavirus/COVID-19? No / Unsure 08/26/2022 9:39 AM ROLLED SEAT TRIMMER documented as of this encounter Plan of Treatment Upcoming Encounters Date Type Department Care Team (Late st Contact Info) Description 09/07/2024 10:00 AM CDT Office Visit [facility] [address] [place] [phone] Fransisco Eddy MD [address] [place] [address] 88 [place] [address] 03/29/2025 3:40 PM CDT Office Visit [address] [place] [phone] Alfreda Ray PA-C [address] [place] [address] [phone] documented as of this encounter Visit Diagnoses Not on filedocumented in this encounter Additional Health Concerns Assessment Noted Time PHQ-9 Depression Total Score: 4 09/05/19 10:39 AM CDT documented as of this encounter Care Teams Paste Worker Relationship Specialty Start Date End Date Alfreda Ray PA-C [address] [place] [address]66 PCP - General Family Medicine 12/30/21 Alfreda Ray PA-C [address] [place] [address]84 Referring Physician Family Medicine 12/31/21 Katrin Orellana PA-C [address] [place] [address] 539015 Physician Acquisitions Librarian Dermatology 12/31/21 Shanna Vang PA-C [address] [place] [address] 587984 Assigned Cancer Care Provider 01/10/22 Fransisco Eddy MD [address] [place] [address] 174895 Assigned Rheumatology Provider 05/09/22 [place] [address] [address]ARCIA [address] Assigned Pain Medication Provider 06/29/22 09/04/22 [place] [address] [address] [address] Assigned PCP 08/15/22 08/28/22 Katrin Orellana PA-C [address] [place] [address] 397795 Assigned Surgical Provider 08/15/22 02/10/24 Cristina Hsieh, [facility] [address] [facility] LISBETH HERNANDEZ [address] Pharmacist Pharmacist 09/07/22 Alfreda Ray PA-C [address] [place] [address] 376552 Assigned Pain Medication Provider 09/05/22 09/10/23 Alfreda Ray PA-C [address] [place] [address] 030972 Assigned PCP 08/29/22 Cristina Hsieh [facility] [address] [address] Assigned MTM Pharmacist 09/26/22 Dakota Tatum MD [address] [place] [address] 106145 Cardiovascular Disease 03/25/23 Dakota Tatum MD [address] [place] [address] Assigned Heart and Vascular Provider 05/01/23 [place] [address] [facility], [facility] [address] [place] [address] Assigned Musculoskeletal Provider 04/12/24 documented as of this encounter
--- OUTSIDE RECORDS SUMMARY | 2024-06-22 23:08 | XMS_ITS | Encounter Summary ---
Author Organization [place] Address [address] [place] [address] 9[address]32 Care Team Providers Care Field Scout Name Role Phone Esperanza Gatica MD Primary Care Provider + Esperanza Gatica MD Unavailable + Jesús Orourke MD Unavailable Alfreda Ray-C Primary Care Provider + Alfreda RayC Unavailable +[phone] Katrin Orellana PA-C Unavailable +[phone] Shanna Vang PA-C Unavailable +[phone] Fransisco Eddy MD Unavailable +[phone] Esperanza Gatica MD Unavailable + Esperanza Gatica MD Unavailable + Katrin OrellanaC Unavailable +[phone] [facility] Unavailable +[phone] Alfreda Ray PA-C Unavailable +[phone] Alfreda Ray PA-C Unavailable +[address] [facility] Unavailable +[phone] Dakota Tatum MD Unavailable Dakota Tatum MD Unavailable +[phone] Srinivas Marie Unavailable [phone] Encounter Details Date Type Department Care Team (Late st Contact Info) Description 01/02/2021 MyC Medical Advice [facility] [address] [place] [address] [place] [address] [place] [address] Social History Tobacco Use Types [...] Sex Assigned at Female 08/17/2018 7:56 AM CLINICAL CYTOGENETICIST SCIENTIST Legal Sex Female 4:24 AM CLINICAL CYTOGENETICIST SCIENTIST Gender Identity Female 08/17/2018 7:56 AM CLINICAL CYTOGENETICIST SCIENTIST Sexual Orientation Straight 08/17/2018 7: 56 AM CLINICAL CYTOGENETICIST SCIENTIST COVID-19 Exposure Response Date Recorded In the last month, have you been in contact with someone who was confirmed or suspected to have Coronavirus / COVID-19? No / Unsure 12/31/2020 8:35 AM CDT documented as of this encounter Plan of Treatment Upcoming Encounters Date Type Department Care Team (Late st Contact Info) Description 09/07/2024 10:00 AM CDT Office Visit [facility] [address] [place] [address] Fransisco Eddy MD [address] [place] [address] 03/29/2025 3:40 PM CDT Office Visit [address] [phone] Alfreda Ray PA-C [address] [place] [address] documented as of this encounter Visit Diagnoses Not on filedocumented in this encounter Additional Health Concerns Infection Onset Date Last Indicated Resolved Time Rule Out COVID-19 05/08/2021 05/08/2021 05/09/2021 9:08 PM CLINICAL CYTOGENETICIST SCIENTIST Assessment Noted Time PHQ-9 Depression Total Score: 0 08/31/19 21 11:22 AM CLINICAL CYTOGENETICIST SCIENTIST documented as of this encounter Care Teams Field Scout Relationship Specialty Start Date End Date Esperanza Gatica MD PCP - General Family Practice 10/13/11 12/29/21 Alfreda Ray PA-C [address] [place] [address]65 PCP - General Family Medicine 12/30/21 [place] [address] [facility] [place] [address] Assigned PCP 09/29/20 07/31/22 Jesú[place] [address] [place] [address] Assigned Musculoskeletal Provider 10/20/20 04/17/22 Alfreda Ray PA-C [address] [place] [address] [phone] Referring Physician Family Medicine 12/31/21 Katrin Orellana PA-C [address] [place] [address] Physician Slaughterer Religious Ritual Dermatology 12/31/21 Shanna Vang PA-C [address] [place] [address] Assigned Cancer Care Provider 01/10/22 Fransisco Eddy MD [address] [place] [address] [address] [place] [address] Assigned Rheumatology Provider 05/09/22 [place] [address] [place] [address] Assigned Pain Medication Provider 06/29/22 09/04/22 [place] [address] [place] [address] Assigned PCP 08/15/22 08/28/22 Katrin Orellana PA-C [address] [place] [address] 667835 Assigned Surgical Provider 08/15/22 02/10/[address] [facility] [address] [place] [address] LISBETH HERNANDEZ [phone] Pharmacist Pharmacist 09/07/22 Alfreda Ray PA-C [address] [place] [address] 099442 Assigned Pain Medication Provider 09/05/22 09/10/23 Alfreda Ray PA-C [address] [place] [address] [phone] Assigned PCP 08/29/22 Cristina Hsieh, [facility] [address] [facility] [address] [place] [address] Assigned MTM Pharmacist 09/26/22 Dakota Tatum MD [address] [place] [address] 714265 Cardiovascular Disease 03/25/23 Dakota Tatum MD [address] [place] [address] 754735 Assigned Heart and Vascular Provider 05/01/23 [place] [address] [address], [facility] [address] [place] [address] Assigned Musculoskeletal Provider 04/12/24 documented as of this encounter
--- OUTSIDE RECORDS SUMMARY | 2024-06-22 23:08 | XMS_ITS | Encounter Summary ---
Author Organization [place] Address [address] [place] [address] Care Team Providers Care Cmm Programmer Name Role Phone Alfreda Ray PA-C Primary Care Provider + Alfreda Ray PA-C Unavailable +[phone] Katrin Orellana PA-C Unavailable [phone] Shanna Vang PA-C Unavailable +[phone] Fransisco Eddy MD Unavailable +[phone] Katrin Orellana PA-C Unavailable [phone] Cristina Hsieh [facility] Unavailable +[phone] Alfreda Ray PA-C Unavailable + [phone] Alfreda Ray PA-C Unavailable + [phone] Cristina Hsieh [facility] Unavailable [phone] Dakota Tatum MD Unavailable + [phone] Dakota Tatum MD Unavailable + [phone] Srinivas Marie DO Unavailable [phone] Encounter Details Date Type Department Care Team (Late st Contact Info) Description 02/12/2023 Migdalia Marin [facility] [address] [address] Cristina Hsieh, [facility] 1600 [facility] 101 [place] [address] Social History Tobacco Use Types Packs/Day Years [...] Sex Assigned at Female 08/17/2018 7:56 AM INVESTMENT STRATEGIST Legal Sex Female 4:24 AM INVESTMENT STRATEGIST Gender Identity Female 08/17/2018 7:56 AM INVESTMENT STRATEGIST Sexual Orientation Straight 08/17/2018 7: 56 AM INVESTMENT STRATEGIST documented as of this encounter Plan of Treatment Upcoming Encounters Date Type Department Care Team (Late st Contact Info) Description 09/07/2024 10:00 AM CDT Office Visit [address] [phone] Fransisco Eddy MD [address] [place] [address] 03/29/2025 3:40 PM CDT Office Visit [address] [phone] Alfreda Ray PA-C [address] [place] [address] documented as of this encounter Visit Diagnoses Not on filedocumented in this encounter Additional Health Concerns Assessment Noted Time PHQ-9 Depression Total Score: 4 09/05/19 10:39 AM CDT documented as of this encounter Care Teams Cmm Programmer Relationship Specialty Start Date End Date Alfreda Ray PA-C [address] [place] [address] 649462 PCP - General Family Medicine 7/12/22 Alfreda Ray PA-C [address] [place] [address] 78055 Referring Physician Family Medicine 12/31/21 Katrin Orellana PA-C [address] [place] [address] Physician Coat Examiner Dermatology 12/31/21 Shanna Vang PA-C [address] [place] [address] 059884 Assigned Cancer Care Provider 01/10/22 Franissco Eddy MD [address] [place] [address] [phone] Assigned Rheumatology Provider 05/09/22 Katrin Orellana PA-C [address] [place] [address] 055175 Assigned Surgical Provider 08/15/22 02/10/24 Cristina Hsieh [facility] [address] [place] [address] LISBETH HERNANDEZ [phone] Pharmacist Pharmacist 09/07/22 Alfreda Ray PA-C [address] [place] [address] 21792 Assigned Pain Medication Provider 09/05/22 09/10/23 Alfreda Ray PA-C [address] [place] [address] 52837 Assigned PCP 08/29/22 Cristina Hsieh, [facility] 1600 [facility] [address] [place] [address] Assigned MTM Pharmacist 09/26/22 Dakota Tatum MD [address] [place] [address] 184245 Cardiovascular Disease 03/25/23 Dakota Tatum MD [address] [place] [address] [phone] Assigned Heart and Vascular Provider 05/01/23 [place] [address] [address], [facility] 300 [place] [address] Assigned Musculoskeletal Provider 04/12/24 documented as of this encounter
--- OUTSIDE RECORDS SUMMARY | 2024-06-22 23:08 | XMS_ITS | Encounter Summary ---
Author Organization [place] Address [address] [place] [address] Care Team Providers Care Hose Stripper Name Role Phone Esperanza Gatica MD Primary Care Provider + Esperanza Gatica MD Unavailable + Jesús Orourke MD Unavailable Alfreda Ray-C Primary Care Provider + Alfreda RayC Unavailable +[phone] Katrin Orellana PA-C Unavailable +[phone] Shanna Vang PA-C Unavailable +[phone] Fransisco Eddy MD Unavailable +[phone] Esperanza Gatica MD Unavailable + Esperanza Gatica MD Unavailable + Katrin OrellanaC Unavailable +[phone] Cristina Hsieh [facility] Unavailable [phone] Alfreda Ray PA-C Unavailable +[phone] Alfreda Ray PA-C Unavailable +2600 Cristina Hsieh [facility] Unavailable +[phone] Dakota Tatum MD Unavailable Dakota Tatum MD Unavailable +[phone] Srinivas Marie Unavailable [phone] Encounter Details Date Type Department Care Team (Late st Contact Info) Description 11/28/2020 MyC Medical Advice [facility] [place] [address] [place] [address] 160 [place] [address] [place] [address] [place] [address] Social History Tobacco Use Types Packs/Day Years [...] Sex Assigned at Female 08/17/2018 7:56 AM AUTOMOTIVE LEASING SALES REPRESENTATIVE Legal Sex Female 4:24 AM AUTOMOTIVE LEASING SALES REPRESENTATIVE Gender Identity Female 08/17/2018 7:56 AM AUTOMOTIVE LEASING SALES REPRESENTATIVE Sexual Orientation Straight 08/17/2018 7: 56 AM AUTOMOTIVE LEASING SALES REPRESENTATIVE COVID-19 Exposure Response Date Recorded In the last month, have you been in contact with someone who was confirmed or suspected to have Coronavirus / COVID-19? No / Unsure 11/12/2020 1:17 PM CDT documented as of this encounter Plan of Treatment Upcoming Encounters Date Type Department Care Team (Late st Contact Info) Description 09/07/2024 10:00 AM CDT Office Visit [facility] [place] [address] [place] [address] 200 [place] [address] Fransisco Eddy MD [address] [place] [address] 03/29/2025 3:40 PM CDT Office Visit [address] [phone] Alfreda Ray PA-C [address] [place] [address] documented as of this encounter Visit Diagnoses Not on filedocumented in this encounter Additional Health Concerns Infection Onset Date Last Indicated Resolved Time Rule Out COVID-19 05/08/2021 05/08/2021 05/09/2021 9:08 PM AUTOMOTIVE LEASING SALES REPRESENTATIVE Assessment Noted Time PHQ-9 Depression Total Score: 0 08/31/19 11:22 AM AUTOMOTIVE LEASING SALES REPRESENTATIVE documented as of this encounter Care Teams Hose Stripper Relationship Specialty Start Date End Date Esperanza Gatica MD PCP - General Family Practice 10/13/11 12/29/21 Alfreda Rya PA-C [address] [place] [address] 45168 PCP - General Family Medicine 12/30/21 [place] [address] [facility] [place] [address] Assigned PCP 09/29/20 07/31/22 Jesú[place] [address] [place] [address] Assigned Musculoskeletal Provider 10/20/20 04/17/22 Alfreda Ray PA-C [address] [place] [address] Referring Physician Family Medicine 12/31/21 Katrin Orellana PA-C [address] [place] [address]22 Physician Tube And Manifold Builder Dermatology 12/31/21 Shanna Vang PA-C [address] [place] [address]64 Assigned Cancer Care Provider 01/10/22 Fransisco Eddy MD [address] [place] [address] 88 [place] [address] Assigned Rheumatology Provider 05/09/22 [place] [address] [place] [address] Assigned Pain Medication Provider 06/29/22 09/04/22 [place] [address] [place] [address] Assigned PCP 08/15/22 08/28/22 Katrin Orellana PA-C [address] [place] [address] 554935 Assigned Surgical Provider 08/15/22 02/10/24 Cristina Hsieh [facility] [address] [place] [address] LISBETH HERNANDEZ [address] Pharmacist Pharmacist 09/07/22 Alfreda Rya PA-C [address] [place] [address] Assigned Pain Medication Provider 09/05/22 09/10/23 Alfreda Ray PA-C [address] [place] [address] 32344 Assigned PCP 08/29/22 Cristina Hsieh, [facility] 1600 [facility] 101 [place] [address] Assigned MTM Pharmacist 09/26/22 Dakota Tatum MD [address] [place] [address] 815665 Cardiovascular Disease 03/25/23 Dakota Tatum MD [address] [place] [address] 997185 Assigned Heart and Vascular Provider 05/01/23 [place] [address] [address], [facility] 300 [place] [address] Assigned Musculoskeletal Provider 04/12/24 documented as of this encounter
--- OUTSIDE RECORDS SUMMARY | 2024-06-22 23:08 | XMS_ITS | Encounter Summary ---
Author Organization [place] Address [address] [place] [address] Care Team Providers Care Sagger Preparer Name Role Phone Esperanza Gatica MD Primary Care Provider + Esperanza Gatica MD Unavailable + Jesús Orourke MD Unavailable Alfreda Ray-C Primary Care Provider + Alfreda RayC Unavailable +[phone] Katrin Orellana PA-C Unavailable +[phone] Shanna Vang PA-C Unavailable +[phone] Fransisco Eddy MD Unavailable +[phone] Esperanza Gatica MD Unavailable + Esperanza Gatica MD Unavailable + Katrin OrellanaC Unavailable +[phone] Cristina Hsieh [facility] Unavailable +[phone] Alfreda Ray PA-C Unavailable +[phone] Alfreda Ray PA-C Unavailable +[phone] Cristina Hsieh [facility] Unavailable +[phone] Dakota Tatum MD Unavailable Dakota Tatum MD Unavailable +[phone] Srinivas Marie DO Unavailable [phone] Encounter Details Date Type Department Care Team (Late st Contact Info) Description 07/20/2021 MyC Medical Advice [facility] [address] [place] [phone] [place] [address] [place] [address] Social History Tobacco Use Types [...] Assigned at Female 08/17/2018 7:56 AM MANAGER METROLOGY Legal Sex Female 4:24 AM MANAGER METROLOGY Gender Identity Female 08/17/2018 7:56 AM MANAGER METROLOGY Sexual Orientation Straight 08/17/2018 7: 56 AM MANAGER METROLOGY documented as of this encounter Miscellaneous Notes * Telephone Encounter - So Mathur RN - 07/21/2021 11:34 AM MANAGER METROLOGY Called the pt. She started with symptoms - July 05. Just yesterday she felt good. She took a home test and she was positive. She also was positive at the [facility]. Today and yesterday she felt better. No more fevers. She had a horrible sore throat and cough. She got cough meds. She was weak and no get up and go and she had a headache. Advised per CDC guidelines, she could be off quarantine. She says she masks when she is out anyway.She said she was concerned because she will be travelling for her granddaughters wedding in July to [place]. Advised she may want to do an e-visit if she would need a letter stating that she had covid and has recovered. She said she will try to do it the end of this week. GER METROLOGY documented in this encounter Plan of Treatment Upcoming Encounters Date Type Department Care Team (Late st Contact Info) Description 09/07/2024 10:00 AM CDT Office Visit [facility] [address] [place] [address] Fransisco Eddy MD [address] [place] [address] 03/29/2025 3:40 PM CDT Office Visit [address] [phone] Alfreda Ray PA-C [address] [place] [address] 448212 documented as of this encounter Visit Diagnoses Not on filedocumented in this encounter Additional Health Concerns Assessment Noted Time PHQ-9 Depression Total Score: 0 08/31/19 11:22 AM MANAGER METROLOGY documented as of this encounter Care Teams Sagger Preparer Relationship Specialty Start Date End Date Esperanza Gatica MD PCP - General Family Practice 10/13/11 12/29/21 Alfreda Ray PA-C [address] [place] [address] 798122 PCP - General Family Medicine 12/30/21 [place] [address] [place] [address] Assigned PCP 09/29/20 07/31/22 [place] [address] [address] Assigned Musculoskeletal Provider 10/20/20 04/17/22 Alfreda Ray PA-C [address] [place] [address] [phone] Referring Physician Family Medicine 12/31/21 Katrin Orellana PA-C [address] [place] [address] 326425 Physician Medical Billing Clerk Dermatology 12/31/21 Shanna Vang PA-C [address] [place] [address] 013544 Assigned Cancer Care Provider 01/10/22 Fransisco Eddy MD [address] [place] [address] 203625 Assigned Rheumatology Provider 05/09/22 [place] [address] [place] [address] Assigned Pain Medication Provider 06/29/22 09/04/22 [place] [address] [facility] [place] [address] Assigned PCP 08/15/22 08/28/22 Katrin Orellana PA-C [address] [place] [address] 718805 Assigned Surgical Provider 08/15/22 02/10/24 Cristina Hsieh [facility] [address] [facility] [place] [address] Pharmacist Pharmacist 09/07/22 Alfreda Ray PA-C [address] [place] [address] Assigned Pain Medication Provider 09/05/22 09/10/23 Alfreda Ray PA-C [address] [place] [address] Assigned PCP 08/29/22 Cristina Hsieh, [facility] [address] [address] Assigned MTM Pharmacist 09/26/22 Dakota Tatum MD [address] [place] [address] Cardiovascular Disease 03/25/23 Dakota Tatum MD [address] [place] [address] Assigned Heart and Vascular Provider 05/01/23 [place] [address] [address], [address] [address] Assigned Musculoskeletal Provider 04/12/24 documented as of this encounter
--- OUTSIDE RECORDS SUMMARY | 2024-06-22 23:08 | XMS_ITS | Encounter Summary ---
Author Organization [facility] Address [address] [place] [address] Care Team Providers Care Superintendent Track Name Role Phone Esperanza Gatica MD Unavailable [phone] Alfreda Ray PA-C Primary Care Provider + Alfreda Ray PA-C Unavailable +[phone] Katrin Orellana PA-C Unavailable +[phone] Shanna Vang PA-C Unavailable +[phone] Fransisco Eddy MD Unavailable +[phone] Esperanza Gatica MD Unavailable +[phone] Esperanza Gatica MD Unavailable +[phone] Katrin Orellana PA-C Unavailable +[phone] Cristina Hsieh [facility] Unavailable +- [phone] Alfreda Ray PA-C Unavailable +[phone] Alfreda Ray PA-C Unavailable +260 Cristina Hsieh [facility] Unavailable +[phone] Dakota Tatum MD Unavailable + [phone] Dakota Tatum MD Unavailable + [phone] Srinivas Marie DO Unavailable [phone] Reason for Visit * Reason Onset Date Comments Medication Update 05/11/2022 Encounter Details Date Type Department Care Team (Late st Contact Info) Description 05/11/2022 Telephone [facility] [address] [place] [address] Fransisco Eddy MD [address] [place] [address] Medication Update Social History Tobacco Use Types Packs/Day Years Used Date Smoking Tobacco: Former Cigarettes 1 5 0 06/21/1963 - 06/21/1968 Smokeless Tobacco: Never Comments:not a smoker Alcohol Use Standard Drinks/Week Comments Yes 0 (1 standard drink = 0.6 oz pur e alcohol) rare 1 monthly PHQ-2 Answer Date Recorded PHQ-2 Score 0 03/05/2022 Comments No Sex and Gender Information Value Date Recorded Sex Assigned at Female 08/17/2018 7:56 AM ANIMAL PHYSIOLOGY TEACHER Legal Sex Female 4:24 AM ANIMAL PHYSIOLOGY TEACHER Gender Identity Female 08/17/2018 7:56 AM ANIMAL PHYSIOLOGY TEACHER Sexual Orientation Straight 08/17/2018 7: 56 AM ANIMAL PHYSIOLOGY TEACHER COVID-19 Exposure Response Date Recorded In the last 10 days, have yo u been in contact with someone who was confirmed or suspected to have Coronavirus/COVID-19? No / Unsure 05/06/2022 9:52 AM ANIMAL PHYSIOLOGY TEACHER documented as of this encounter Miscellaneous Notes * Telephone Encounter - Lena Pina RN - 05/12/2022 8:03 AM CST RX's are pended for your signature. Lena Pina RN AL PHYSIOLOGY TEACHER * Telephone Encounter - Fransisco Eddy MD - 05/11/2022 6:29 PM ANIMAL PHYSIOLOGY TEACHER I am delighted to hear about the response to prednisone. I do indeed recommend that patient start Plaquenil. Her concern about effect on the eyes is noted. However, I can be reassuring that Plaquenilwill not affect dryness of the eyes. Toxicity to the eyes is rare (less than 1%), and happens only when the wrong dose (too much medication for the patient weight), or when kidney function is impaired. Last recorded kidney function measurement in November 2021 was fine, so the risk of toxicity is very low. I recommend hydroxychloroquine 200 mg taken once daily. While waiting for hydroxychloroquine totake effect, I recommend another course of low-dose prednisone. 15 mg daily for 1 week, 10 mg dailyfor 1 week, then 5 mg daily for 1 week. Thank you for setting up these prescriptions for my review and signature. AL PHYSIOLOGY TEACHER * Telephone Encounter - Lena Pina RN - 05/11/2022 12:53 PM ANIMAL PHYSIOLOGY TEACHER Patient calling with follow up to 04/23 office visit. She was given prednisone 15mg daily x7 days, then 10mg daily for 7 days, then off. She states she was pain free while on prednisone and calls it amiracle drug. She finished the taper on 05/07 and since has had significant pain in the hips, back, and left hand. She was out of town over the weekend and had difficulties walking d/t pain. Last note on 04/23 states: 4. If prednisone is significantly helpful, I will recommend a course of treatment with hydroxychloroquine for longer term control of joint pain. Patient advised of this and is concerned about plaquenil as she already has eye issues. Optometrynotes from 03/20/22 state chronic dry eye. Please advise. Thank you. Lena Pina RN AL PHYSIOLOGY TEACHER * Telephone Encounter - HamptonViktoria - 05/11/2022 11:33 AM CST [facility] Phone Message May a detailed message be left on voicemail: yes; please call home # Reason for Call: Medication Question or concern regarding medication Prescription Clarification Name of Medication: Prednisone Prescribing Provider: Dr. Eddy Pharmacy: [facility] in [place], [place] What on the order needs clarification? Pt is calling back to update Dr. Eddy on the prednisone;Pt states this is a miracle drug and this was really helping. Pt is wondering if Dr. Eddy would be okay to keep Pt on a low dose prescription because she is starting to feel some pain now since ending the taper prescription. Please contact the Pt back to let her know. 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 documented in this encounter Additional Health Concerns Assessment Noted Time PHQ-9 Depression Total Score: 4 09/05/19 22 10:39 AM CDT documented as of this encounter Care Teams Superintendent Track Relationship Specialty Start Date End Date Alfreda Ray PA-C [address] [place] [address] [phone] PCP - General Family Medicine 12/30/21 [place] [address] [place] [address] Assigned PCP 09/29/20 07/31/22 Alfreda Ray PA-C [address] [place] [address]1954 Referring Physician Family Medicine 12/31/21 Katrin Orellana PA-C [address] [place] [address]181 Physician Buildings And Grounds Director Dermatology 12/31/21 Shanna Vang PA-C [address] [address] Assigned Cancer Care Provider 01/10/22 Fransisco Eddy MD [address] [place] [address] 64940 Assigned Rheumatology Provider 05/09/22 [place] [address] [place] [address] Assigned Pain Medication Provider 06/29/22 09/04/22 [place] [address] [place] [address] Assigned PCP 08/15/22 08/28/22 Katrin Orellana PA-C [address] [place] [address]1987 Assigned Surgical Provider 08/15/22 02/10/24 Cristina Hsieh [facility] [address] [facility] LISBETH HERNANDEZ [address] Pharmacist Pharmacist 09/07/22 Alfreda Ray PA-C [address] [place] [address] Assigned Pain Medication Provider 09/05/22 09/10/23 Alfreda Ray PA-C [address] [place] [address] 43064 Assigned PCP 08/29/22 Cristina Hsieh, [facility] [address] [place] [address] 18923 Assigned MTM Pharmacist 09/26/22 Dakota Tatum MD [address] [place] [address]7545 Cardiovascular Disease 03/25/23 Dakota Tatum MD [address] [place] [address] 10912 Assigned Heart and Vascular Provider 05/01/23 [place] [address] [address], [address] [address] Assigned Musculoskeletal Provider 04/12/24 documented as of this encounter
--- OUTSIDE RECORDS SUMMARY | 2024-06-22 23:08 | XMS_ITS | Encounter Summary ---
Author Organization [facility] Address [address] [place] [address] Care Team Providers Care Marine Steam Fitter Name Role Phone Esperanza Gatica MD Primary Care Provider + Esperanza Gatica MD Unavailable + Jesús Orourke MD Unavailable Alfreda Ray-C Primary Care Provider + Alfreda RayC Unavailable +[phone] Katrin Orellana PA-C Unavailable +[phone] Shanna Vang PA-C Unavailable +[phone] Fransisco Eddy MD Unavailable +[phone] Esperanza Gatica MD Unavailable + Esperanza Gatica MD Unavailable + Katrin OrellanaC Unavailable +[phone] Cristina Hsieh [facility] Unavailable +[phone] Alfreda Ray PA-C Unavailable +[phone] Alfreda Ray PA-C Unavailable +[phone] Cristina Hsieh [facility] Unavailable +[phone] Dakota Tatum MD Unavailable Dakota Tatum MD Unavailable + [phone] Srinivas Marie DO Unavailable [phone] Reason for Visit * Reason Onset Date Comments MyChart Communication 11/26/2020 Encounter Details Date Type Department Care Team (Late Contact Info) Description 11/26/2020 MyC Medical Advice [facility] [id number] [place] [address] [address] [place] [address] Jesú[place] [address] [facility] [address] [place] [address] MyChart Communication Social History Tobacco Use Types [...] Assigned at Female 08/17/2018 7:56 AM HAND TRUCKER Legal Sex Female 4:24 AM HAND TRUCKER Gender Identity Female 08/17/2018 7:56 AM HAND TRUCKER Sexual Orientation Straight 08/17/2018 7: 56 AM HAND TRUCKER COVID-19 Exposure Response Date Recorded In the last month, have you been in contact with someone who was confirmed or suspected to have Coronavirus / COVID-19? No / Unsure 11/12/2020 1:17 PM CDT documented as of this encounter Plan of Treatment Upcoming Encounters Date Type Department Care Team (Late Contact Info) Description 09/07/2024 10:00 AM CDT Office Visit [facility] [address] [place] [address] Fransisco Eddy MD [address] [place] [address] [phone] 03/29/2025 3:40 PM CDT Office Visit [address] [facility] [place] [phone] lAfreda Ray PA-C [address] [place] [address] 855872 documented as of this encounter Visit Diagnoses Not on filedocumented in this encounter Additional Health Concerns Infection Onset Date Last Indicated Resolved Time Rule Out COVID-19 05/08/2021 05/08/2021 05/09/2021 9:08 PM HAND TRUCKER Assessment Noted Time PHQ-9 Depression Total Score: 0 08/31/19 11:22 AM HAND TRUCKER documented as of this encounter Care Teams Marine Steam Fitter Relationship Specialty Start Date End Date Esperanza Gatica MD PCP - General Family Practice 10/13/11 12/29/21 Alfreda Ray PA-C [address] [place] [address] 14423 PCP - General Family Medicine 12/30/21 [place] [address] [facility] [place] [place] [address] Assigned PCP 09/29/20 07/31/22 Jesú[place] [address] [place] [address] Assigned Musculoskeletal Provider 10/20/20 04/17/22 Alfreda Ray PA-C [address] [place] [address]641 Referring Physician Family Medicine 12/31/21 Katrin Orellana PA-C [address] [place] [address] 46689 Physician Groundwater Consultant Dermatology 12/31/21 Shanna Vang PA-C [address] [address] Assigned Cancer Care Provider 01/10/22 Fransisco Eddy MD [address] [place] [address] 19261 Assigned Rheumatology Provider 05/09/22 [place] [address] [place] [address] Assigned Pain Medication Provider 06/29/22 09/04/22 [place] [address] [place] [address] Assigned PCP 08/15/22 08/28/22 Katrin Orellana PA-C [address] [place] [address] 98033 Assigned Surgical Provider 08/15/22 02/10/24 Cristina Hsieh [facility] [address] [place] [address] [place] [address] Pharmacist Pharmacist 09/07/22 Alfreda Ray PA-C [address] [place] [address] 404812 Assigned Pain Medication Provider 09/05/22 09/10/23 Alfreda Ray PA-C [address] [place] [address] 24557 Assigned PCP 08/29/22 Cristina Hsieh, [facility] [address] [facility] [address] [place] [address] Assigned MTM Pharmacist 09/26/22 Dakota Tatum MD [address] [place] [address] 41993 Cardiovascular Disease 03/25/23 Dakota Tatum MD [address] [place] [address] 20054 Assigned Heart and Vascular Provider 05/01/23 [place] [address] CELE GAST[address], [facility] [address] [place] [address] Assigned Musculoskeletal Provider 04/12/24 documented as of this encounter
--- OUTSIDE RECORDS SUMMARY | 2024-06-22 23:08 | XMS_ITS | Encounter Summary ---
Author Organization [facility] Address [address] [place] [address]. [place] [address] Care Team Providers Care Chin Strap Maker Name Role Phone Alfreda Ray PA-C Primary Care Provider + Alfreda Ray PA-C Unavailable [phone] Katrin Orellana PA-C Unavailable +[phone] Shanna Vang PA-C Unavailable +[phone] Fransisco Eddy MD Unavailable [phone] Katrin Orellana PA-C Unavailable +[phone] Cristina Hsieh [facility] Unavailable +[phone] Alfreda Ray PA-C Unavailable + [phone] Alfreda Ray PA-C Unavailable + [phone] Cristina Hsieh [facility] Unavailable +[phone] Dakota Tatum MD Unavailable + [phone] Dakota Tatum MD Unavailable + [phone] Srinivas Marie DO Unavailable [phone] Encounter Details Date Type Department Care Team (Late st Contact Info) Description 12/28/2022 MyC Medical Advice [facility] [address] [place] [address] Gia Weller Social History Tobacco Use Types [...] Sex Assigned at Female 08/17/2018 7:56 AM SCREW MACHINE SETTER Legal Sex Female 4:24 AM SCREW MACHINE SETTER Gender Identity Female 08/17/2018 7:56 AM SCREW MACHINE SETTER Sexual Orientation Straight 08/17/2018 7: 56 AM SCREW MACHINE SETTER COVID-19 Exposure Response Date Recorded In the last 10 days, have yo u been in contact with someone who was confirmed or suspected to have Coronavirus/COVID-19? No / Unsure 11/30/2022 2:01 PM CDT documented as of this encounter Plan of Treatment Upcoming Encounters Date Type Department Care Team (Late st Contact Info) Description 09/07/2024 10:00 AM CDT Office Visit [facility] [address] [phone] Fransisco Eddy MD [address] [place] [address] 409745 03/29/2025 3:40 PM CDT Office Visit [address] [phone] Alfreda Ray PA-C [address] [place] [address] [phone] documented as of this encounter Visit Diagnoses Not on filedocumented in this encounter Additional Health Concerns Assessment Noted Time PHQ-9 Depression Total Score: 4 09/05/19 22 10:39 AM CDT documented as of this encounter Care Teams Chin Strap Maker Relationship Specialty Start Date End Date Alfreda Ray PA-C [address] [place] [address] [phone] PCP - General Family Medicine 12/30/21 Alfreda Ray PA-C [address] [place] [address] 6[address]64 Referring Physician Family Medicine 12/31/21 Katrin Orellana PA-C [address] [place] [address] 10124 Physician Canned Food Reconditioning Inspector Dermatology 12/31/21 Shanna Vang PA-C [address] [place] [address] 28113 Assigned Cancer Care Provider 01/10/22 Fransisco Eddy MD [address] [place] [address] 766885 Assigned Rheumatology Provider 05/09/22 Katrin Orellana PA-C [address] [place] [address] 548545 Assigned Surgical Provider 08/15/22 02/10/24 Cristina Hsieh, [facility] [address] [place] [address] LISBETH HERNANDEZ [phone] Pharmacist Pharmacist 09/07/22 Alfreda Ray PA-C [address] [place] [address] 093072 Assigned Pain Medication Provider 09/05/22 09/10/23 Alfreda Ray PA-C [address] [place] [address] 79003 Assigned PCP 08/29/22 Cristina Hsieh, [facility] [address] [facility] 101 [place] [address] Assigned MTM Pharmacist 09/26/22 Dakota Tatum MD [address] [place] [address] [phone] Cardiovascular Disease 03/25/23 Dakota Tatum MD [address] [place] [address] Assigned Heart and Vascular Provider 05/01/23 [place] [address] CELE GASTELUM, [facility] [address] [place] [address] Assigned Musculoskeletal Provider 04/12/24 documented as of this encounter
--- OUTSIDE RECORDS SUMMARY | 2024-06-22 23:08 | XMS_ITS | Encounter Summary ---
Author Organization [facility] Address [address] [place] [address] Care Team Providers Care Lime Kiln Operator Name Role Phone Esperanza Gatica MD Unavailable + Alfreda Ray PA-C Primary Care Provider + Alfreda Ray PA-C Unavailable + Katrin Orellana PA-C Unavailable +[phone] Shanna Vang PA-C Unavailable +[phone] Fransisco Eddy MD Unavailable +[phone] Esperanza Gatica MD Unavailable + Esperanza Gatica MD Unavailable + Katrin Orellana PA-C Unavailable +[phone] Cristina Hsieh [facility] Unavailable +- [phone] Alfreda Ray PA-C Unavailable +[phone] Alfreda Ray PA-C Unavailable +260 Cristina Hsieh [facility] Unavailable +[phone] Dakota Tatum MD Unavailable + Dakota Tatum MD Unavailable + [phone] Srinivas Marie DO Unavailable [phone] Encounter Details Date Type Department Care Team (Late Contact Info) Description 07/27/2022 MyC Medical Advice [address] [phone] Margie Santiago Social History Tobacco Use Types Packs/Day Years [...] Sex Assigned at Female 08/17/2018 7:56 AM ASSOCIATE PROFESSOR OF GEOLOGY Legal Sex Female 4:24 AM ASSOCIATE PROFESSOR OF GEOLOGY Gender Identity Female 08/17/2018 7:56 AM ASSOCIATE PROFESSOR OF GEOLOGY Sexual Orientation Straight 08/17/2018 7: 56 AM ASSOCIATE PROFESSOR OF GEOLOGY documented as of this encounter Plan of Treatment Upcoming Encounters Date Type Department Care Team (Late st Contact Info) Description 09/07/2024 10:00 AM CDT Office Visit [facility] [address] [phone] Fransisco Eddy MD [address] [place] [address] 798175 03/29/2025 3:40 PM CDT Office Visit [address] [phone] Alfreda Ray PA-C [address] [place] [address] 757562 documented as of this encounter Visit Diagnoses Not on filedocumented in this encounter Additional Health Concerns Assessment Noted Time PHQ-9 Depression Total Score: 4 09/05/19 10:39 AM CDT documented as of this encounter Care Teams Lime Kiln Operator Relationship Specialty Start Date End Date Alfreda Ray PA-C [address] [place] [address] [phone] PCP - General Family Medicine 12/30/21 [place] [address] [place] [address] Assigned PCP 09/29/20 07/31/22 Alfreda Ray PA-C [address] [place] [address] 64064 Referring Physician Family Medicine 12/31/21 Katrin Orellana PA-C [address] [place] [address] 98689 Physician Refuge Worker Dermatology 12/31/21 Shanna Vang PA-C [address] [place] [address] 82678 Assigned Cancer Care Provider 01/10/22 Fransisco Eddy MD [address] [place] [address] 18507 Assigned Rheumatology Provider 05/09/22 [place] [address] [place] [address] Assigned Pain Medication Provider 06/29/22 09/04/22 [place] [address] [place] [address] Assigned PCP 08/15/22 08/28/22 Katrin Orellana PA-C [address] [place] [address] [place] [address] Assigned Surgical Provider 08/15/22 02/10/24 Cristina Hsieh [facility] [address] [facility] LISBETH HERNANDEZ [address] Pharmacist Pharmacist 09/07/22 Alfreda Ray PA-C [address] [place] [address] 71282 Assigned Pain Medication Provider 09/05/22 09/10/23 Alfreda Ray PA-C [address] [place] [address] 60987 Assigned PCP 08/29/22 Cristina Hsieh [facility] [address] [place] [address] 51157 Assigned MTM Pharmacist 09/26/22 Dakota Tatum MD [address] [place] [address] 08269 Cardiovascular Disease 03/25/23 Dakota Tatum MD [address] [place] [address] 73344 Assigned Heart and Vascular Provider 05/01/23 [place] [address] [place] [address] [address] Assigned Musculoskeletal Provider 04/12/24 documented as of this encounter
--- OUTSIDE RECORDS SUMMARY | 2024-06-22 23:08 | XMS_ITS | Encounter Summary ---
Author Organization [facility] Address [address] [place] [address]. [place] [address] Care Team Providers Care Larriman Name Role Phone Alfreda Ray PA-C Primary Care Provider + Alfreda Ray PA-C Unavailable + [phone] Katrin Orellana PA-C Unavailable +[phone] Shanna Vang PA-C Unavailable +[phone] Fransisco Eddy MD Unavailable [phone] Katrin Orellana PA-C Unavailable +[phone] Cristina Hsieh [facility] Unavailable +[phone] Alfreda Ray PA-C Unavailable + [phone] Alfreda Ray PA-C Unavailable + [phone] Cristina Hsieh [facility] Unavailable +[phone] Dakota Tatum MD Unavailable + [phone] Dakota Tatum MD Unavailable + [phone] Srinivas Marie DO Unavailable [phone] Encounter Details Date Type Department Care Team (Late st Contact Info) Description 12/01/2022 MyC Medical Advice [facility] [address] [place] [address] Gia Weller Social History Tobacco [...] Sex Assigned at Female 08/17/2018 7:56 AM GARMENT CUTTER Legal Sex Female 4:24 AM GARMENT CUTTER Gender Identity Female 08/17/2018 7:56 AM GARMENT CUTTER Sexual Orientation Straight 08/17/2018 7: 56 AM GARMENT CUTTER COVID-19 Exposure Response Date Recorded In the last 10 days, have yo u been in contact with someone who was confirmed or suspected to have Coronavirus/COVID-19? No / Unsure 11/30/2022 2:01 PM CDT documented as of this encounter Plan of Treatment Upcoming Encounters Date Type Department Care Team (Late st Contact Info) Description 09/07/2024 10:00 AM CDT Office Visit [facility] [address] [phone] Fransisco Eddy MD [address] [place] [address] 297885 03/29/2025 3:40 PM CDT Office Visit [address] [phone] Alfreda Ray PA-C [address] [place] [address] 430272 documented as of this encounter Visit Diagnoses Not on filedocumented in this encounter Additional Health Concerns Assessment Noted Time PHQ-9 Depression Total Score: 4 09/05/19 22 10:39 AM CDT documented as of this encounter Care Teams Larriman Relationship Specialty Start Date End Date Alfreda Ray PA-C [address] [place] [address] [phone] PCP - General Family Medicine 12/30/21 Alfreda Ray PA-C [address] [place] [address] 51892 Referring Physician Family Medicine 12/31/21 Katrin Orellana PA-C [address] [place] [address] 02890 Physician Assorter Dermatology 12/31/21 Shanna Vang PA-C [address] [place] [address] 85647 Assigned Cancer Care Provider 01/10/22 Fransisco Eddy MD [address] [place] [address] [phone] Assigned Rheumatology Provider 05/09/22 Katrin Orellana PA-C [address] [place] [address] 405705 Assigned Surgical Provider 08/15/22 02/10/24 Cristina Hsieh, [facility] [address] [place] [address] LISBETH HERNANDEZ [phone] Pharmacist Pharmacist 09/07/22 Alfreda Ray PA-C [address] [place] [address] 264122 Assigned Pain Medication Provider 09/05/22 09/10/23 Alfreda Ray PA-C [address] [place] [address] 39109 Assigned PCP 08/29/22 Cristina Hsieh, [facility] [address] [facility] [address] [place] [address] Assigned MTM Pharmacist 09/26/22 Dakota Tatum MD [address] [place] [address] [phone] Cardiovascular Disease 03/25/23 Dakota Tatum MD [address] [place] [address]455 Assigned Heart and Vascular Provider 05/01/23 [place] [address] CE[address] GAST[address]UM, [facility] [address] [place] [address] Assigned Musculoskeletal Provider 04/12/24 documented as of this encounter
--- OUTSIDE RECORDS SUMMARY | 2024-06-22 23:08 | XMS_ITS | Encounter Summary ---
Author Organization [place] Address [address] [place] [address] 84245 Care Team Providers Care Program Management Manager Name Role Phone Esperanza Gatica MD Primary Care Provider + Esperanza Gatica MD Unavailable + Jesús Orourke MD Unavailable Alfreda Ray-C Primary Care Provider + Alfreda RayC Unavailable +260 Katrin Orellana PA-C Unavailable +[phone] Shanna Vang PA-C Unavailable +[phone] Fransisco Eddy MD Unavailable +[phone] Esperanza Gatica MD Unavailable + Esperanza Gatica MD Unavailable + Katrin OrellanaC Unavailable +[phone] Cristina Hsieh [facility] Unavailable +[phone] Alfreda Ray PA-C Unavailable +2600 Alfreda Ray PA-C Unavailable +2600 Cristina Hsieh [facility] Unavailable +[phone] Dakota Tatum MD Unavailable Dakota Tatum MD Unavailable +[phone] Srinivas Marie Unavailable +[phone] Encounter Details Date Type Department Care Team (Late st Contact Info) Description 01/01/2021 MyC Medical Advice [facility] [address] [place] [phone] [place] [address] [place] [address] Social History Tobacco Use Types [...] Sex Assigned at Female 08/17/2018 7:56 AM DIETETIC INTERN Legal Sex Female 4:24 AM DIETETIC INTERN Gender Identity Female 08/17/2018 7:56 AM DIETETIC INTERN Sexual Orientation Straight 08/17/2018 7: 56 AM DIETETIC INTERN COVID-19 Exposure Response Date Recorded In the last month, have you been in contact with someone who was confirmed or suspected to have Coronavirus / COVID-19? No / Unsure 12/31/2020 8:35 AM CDT documented as of this encounter Plan of Treatment Upcoming Encounters Date Type Department Care Team (Late st Contact Info) Description 09/07/2024 10:00 AM CDT Office Visit [facility] [address] [place] [address] Fransisco Eddy MD [address] [place] [address] 03/29/2025 3:40 PM CDT Office Visit [address] [phone] Alfreda Ray PA-C [address] [place] [address]70 documented as of this encounter Visit Diagnoses Not on filedocumented in this encounter Additional Health Concerns Infection Onset Date Last Indicated Resolved Time Rule Out COVID-19 05/08/2021 05/08/2021 05/09/2021 9:08 PM DIETETIC INTERN Assessment Noted Time PHQ-9 Depression Total Score: 0 08/31/19 21 11:22 AM DIETETIC INTERN documented as of this encounter Care Teams Program Management Manager Relationship Specialty Start Date End Date Esperanza Gatica MD PCP - General Family Practice 10/13/11 12/29/21 Alfreda Ray PA-C [address] [place] [address] 77283 PCP - General Family Medicine 12/30/21 [place] [address] [facility] [address] Assigned PCP 09/29/20 07/31/22 Jesú[place] [address] [place] [address] Assigned Musculoskeletal Provider 10/20/20 04/17/22 Alfreda Ray PA-C [address] [place] [address] [phone] Referring Physician Family Medicine 12/31/21 Katrin Orellana PA-C [address] [place] [place] [address] Physician Foamite Mixer Dermatology 12/31/21 Shanna Vang PA-C [address] [place] [address] Assigned Cancer Care Provider 01/10/22 Fransisco Eddy MD [address] [place] [address] 88 [place] [address] Assigned Rheumatology Provider 05/09/22 [place] [address] [place] [address] Assigned Pain Medication Provider 06/29/22 09/04/22 [place] [address] [place] [address] Assigned PCP 08/15/22 08/28/22 Katrin Orellana PA-C [address] [place] [address] [phone] Assigned Surgical Provider 08/15/22 02/10/24 Cristina Hsieh [facility] [address] [place] [address] LISBETH HERNANDEZ [address] Pharmacist Pharmacist 09/07/22 Alfreda Ray PA-C [address] [place] [address] 616662 Assigned Pain Medication Provider 09/05/22 09/10/23 Alfreda Ray PA-C [address] [place] [address] 243252 Assigned PCP 08/29/22 Cristina Hsieh, [facility] [address] [facility] [address] [place] [address] Assigned MTM Pharmacist 09/26/22 Dakota Tatum MD [address] [place] [address] 489225 Cardiovascular Disease 03/25/23 Dakota Tatum MD [address] [place] [address] 695125 Assigned Heart and Vascular Provider 05/01/23 [place] [address] [address], [facility] [address] [place] [address] Assigned Musculoskeletal Provider 04/12/24 documented as of this encounter
--- OUTSIDE RECORDS SUMMARY | 2024-06-22 23:08 | XMS_ITS | Encounter Summary ---
Author Organization [place] Address [address] [place] [address] 98199 Care Team Providers Care Industrial Engineer Name Role Phone Esperanza Gatica MD Primary Care Provider + Esperanza Gatica MD Unavailable + Jesús Orourke MD Unavailable Alfreda Ray-C Primary Care Provider + Alfreda RayC Unavailable +260 Katrin Orellana PA-C Unavailable +[phone] Shanna Vang PA-C Unavailable +[phone] Fransisco Eddy MD Unavailable +[phone] Esperanza Gatica MD Unavailable + Esperanza Gatica MD Unavailable + Katrin OrellanaC Unavailable +[phone] Cristina Hsieh [facility] Unavailable +[phone] Alfreda Ray PA-C Unavailable +2600 Alfreda Ray PA-C Unavailable +2600 Cristina Hsieh [facility] Unavailable +[phone] Dakota Tatum MD Unavailable Dakota Tatum MD Unavailable +[phone] Srinivas Marie DO Unavailable Encounter Details Date Type Department Care Team (Late st Contact Info) Description 07/11/2021 Documentation Only INTERFACED REPORT Unknown, Provider Social History Tobacco Use Types Packs/Day Years [...] Sex Assigned at Female 08/17/2018 7:56 AM CAMPGROUND CLEANING ATTENDANT Legal Sex Female 4:24 AM CAMPGROUND CLEANING ATTENDANT Gender Identity Female 08/17/2018 7:56 AM CAMPGROUND CLEANING ATTENDANT Sexual Orientation Straight 08/17/2018 7: 56 AM CAMPGROUND CLEANING ATTENDANT documented as of this encounter Plan of Treatment Upcoming Encounters Date Type Department Care Team (Late st Contact Info) Description 09/07/2024 10:00 AM CDT Office Visit [facility] [address] [phone] Fransisco Eddy MD [address] [place] [address] 884965 03/29/2025 3:40 PM CDT Office Visit [address] [place] [phone] Alfreda Ray PA-C [address] [place] [address] 853132 documented as of this encounter Visit Diagnoses Not on filedocumented in this encounter Additional Health Concerns Assessment Noted Time PHQ-9 Depression Total Score: 0 08/31/19 11:22 AM CAMPGROUND CLEANING ATTENDANT documented as of this encounter Care Teams Industrial Engineer Relationship Specialty Start Date End Date Esperanza Gatica MD PCP - General Family Practice 10/13/11 12/29/21 Alfreda Ray PA-C [address] [place] [address] 034382 PCP - General Family Medicine 12/30/21 [place] [address] [address]ARCIA [address] Assigned PCP 09/29/20 07/31/22 Jesú[place] [address] [address] Assigned Musculoskeletal Provider 10/20/20 04/17/22 Alfreda Ray PA-C [address] [place] [address] 73[address] Referring Physician Family Medicine 12/31/21 Katrin Orellana PA-C [address] [place] [address] 134855 Physician Yard Hostler Dermatology 12/31/[address] PA-C [facility] . [address] [place] [address] 49981 Assigned Cancer Care Provider 01/10/22 Fransisco Eddy MD [address] [place] [address] 53577 Assigned Rheumatology Provider 05/09/22 [place] [address] [address]IA [address] Assigned Pain Medication Provider 06/29/22 09/04/22 [place] [address] [place] [address] Assigned PCP 08/15/22 08/28/22 Katrin Orellana PA-C [address] [place] [address] 18041 Assigned Surgical Provider 08/15/22 02/10/24 Cristina Hsieh [facility] [address] [place] [address] [place] [address] Pharmacist Pharmacist 09/07/22 Alfreda Ray PA-C [address] [place] [address] 85977 Assigned Pain Medication Provider 09/05/22 09/10/23 Alfreda Ray PA-C [address] [place] [address] 93881 Assigned PCP 08/29/22 Cristina Hsieh [facility] [address] [address] Assigned MTM Pharmacist 09/26/22 Dakota Tatum MD [address] [place] [address] 38695 Cardiovascular Disease 03/25/23 Dakota Tatum MD [address] [place] [address] 38125 Assigned Heart and Vascular Provider 05/01/23 [place] [address] [address], [address] [place] [address] Assigned Musculoskeletal Provider 04/12/24 documented as of this encounter
--- OUTSIDE RECORDS SUMMARY | 2024-06-22 23:08 | XMS_ITS | Encounter Summary ---
Author Organization [place] Address [address] [place] [address] 6[address] Care Team Providers Care Appeals Reviewer Veteran Name Role Phone Esperanza Gatica MD Primary Care Provider + Esperanza Gatica MD Unavailable + Jesús Orourke MD Unavailable Alfreda Ray-C Primary Care Provider + Alfreda RayC Unavailable +260 Katrin Orellana PA-C Unavailable +[phone] Shanna Vang PA-C Unavailable +[phone] Fransisco Eddy MD Unavailable +[phone] Esperanza Gatica MD Unavailable + Esperanza Gatica MD Unavailable + Katrin OrellanaC Unavailable +[phone] Cristina Hsieh [facility] Unavailable +[phone] Alfreda Ray PA-C Unavailable +2600 Alfreda Ray PA-C Unavailable +2600 Cristina Hsieh [facility] Unavailable +[phone] Dakota Tatum MD Unavailable Dakota Tatum MD Unavailable +[phone] Srinivas Marie Unavailable [phone] Encounter Details Date Type Department Care Team (Late st Contact Info) Description 01/02/2021 MyC Medical Advice [facility] [address] [place] [address] [place] [address] [place] [address] Social History Tobacco Use Types [...] Sex Assigned at Female 08/17/2018 7:56 AM ANALYSIS OR RESEARCH SAFETY INSPECTOR Legal Sex Female 4:24 AM ANALYSIS OR RESEARCH SAFETY INSPECTOR Gender Identity Female 08/17/2018 7:56 AM ANALYSIS OR RESEARCH SAFETY INSPECTOR Sexual Orientation Straight 08/17/2018 7: 56 AM ANALYSIS OR RESEARCH SAFETY INSPECTOR COVID-19 Exposure Response Date Recorded In the last month, have you been in contact with someone who was confirmed or suspected to have Coronavirus / COVID-19? No / Unsure 12/31/2020 8:35 AM CDT documented as of this encounter Plan of Treatment Upcoming Encounters Date Type Department Care Team (Late st Contact Info) Description 09/07/2024 10:00 AM CDT Office Visit [facility] [address] [place] [address] Fransisco Eddy MD [address] [place] [address] 03/29/2025 3:40 PM CDT Office Visit [address] [phone] Alfreda Ray PA-C [address] [place] [address] 25891 documented as of this encounter Visit Diagnoses Not on filedocumented in this encounter Additional Health Concerns Infection Onset Date Last Indicated Resolved Time Rule Out COVID-19 05/08/2021 05/08/2021 05/09/2021 9:08 PM ANALYSIS OR RESEARCH SAFETY INSPECTOR Assessment Noted Time PHQ-9 Depression Total Score: 0 08/31/19 21 11:22 AM ANALYSIS OR RESEARCH SAFETY INSPECTOR documented as of this encounter Care Teams Appeals Reviewer Veteran Relationship Specialty Start Date End Date Esperanza Gatica MD PCP - General Family Practice 10/13/11 12/29/21 Alfreda Ray PA-C [address] [place] [address] 21458 PCP - General Family Medicine 12/30/21 [place] [address] [facility] [place] [address] Assigned PCP 09/29/20 07/31/22 Jesú[place] [address] [place] [address] Assigned Musculoskeletal Provider 10/20/20 04/17/22 Alfreda Ray PA-C [address] [place] [address] 566102 Referring Physician Family Medicine 12/31/21 Katrin Orellana PA-C [address] [place] [address] Physician Stoker Mechanic Dermatology 12/31/21 Shanna Vang PA-C [address] [place] [address] Assigned Cancer Care Provider 01/10/22 Fransisco Eddy MD [address] [place] [address] 88 [place] [address] Assigned Rheumatology Provider 05/09/22 [place] [address] [place] [address] Assigned Pain Medication Provider 06/29/22 09/04/22 [place] [address] [place] [address] Assigned PCP 08/15/22 08/28/22 Katrin Orellana PA-C [address] [place] [address] [phone] Assigned Surgical Provider 08/15/22 02/10/24 Cristina Hsieh [facility] [address] [place] [address] LISBETH HERNANDEZ [address] Pharmacist Pharmacist 09/07/22 Alfreda Ray PA-C [address] [place] [address] 242192 Assigned Pain Medication Provider 09/05/22 09/10/23 Alfreda Ray PA-C [address] [place] [address] 053222 Assigned PCP 08/29/22 Cristina Hsieh, [facility] [address] [facility] [address] [place] [address] Assigned MTM Pharmacist 09/26/22 Dakota Tatum MD [address] [place] [address] 889715 Cardiovascular Disease 03/25/23 Dakota Tatum MD [address] [place] [address] 407175 Assigned Heart and Vascular Provider 05/01/23 [place] [address] [address], [facility] [address] [place] [address] Assigned Musculoskeletal Provider 04/12/24 documented as of this encounter
--- OUTSIDE RECORDS SUMMARY | 2024-06-22 23:08 | XMS_ITS | Encounter Summary ---
Author Organization [place] Address [address] [place] [address] 7[address] Care Team Providers Care Resident Care Coordinator Name Role Phone Alfreda Ray PA-C Primary Care Provider + Alfreda Ray PA-C Unavailable +[phone] Katrin Orellana PA-C Unavailable [phone] Shanna Vang PA-C Unavailable +[phone] Fransisco Eddy MD Unavailable +[phone] Katrin Orellana PA-C Unavailable +[phone] Cristina Hsieh [facility] Unavailable +[phone] Alfreda Ray PA-C Unavailable + [phone] Alfreda Ray PA-C Unavailable + [phone] Cristina Hsieh [facility] Unavailable +[phone] Dakota Tatum MD Unavailable + [phone] Dakota Tatum MD Unavailable + [phone] Srinivas Marie DO Unavailable [phone] Encounter Details Date Type Department Care Team (Late st Contact Info) Description 11/23/2022 [facility] [address] [address] Fadumo Arboleda, RN Social History Tobacco Use Types Packs/Day [...] Sex Assigned at Female 08/17/2018 7:56 AM VALVE TECHNICIAN Legal Sex Female 4:24 AM VALVE TECHNICIAN Gender Identity Female 08/17/2018 7:56 AM VALVE TECHNICIAN Sexual Orientation Straight 08/17/2018 7: 56 AM VALVE TECHNICIAN COVID-19 Exposure Response Date Recorded In the last 10 days, have yo u been in contact with someone who was confirmed or suspected to have Coronavirus/COVID-19? No / Unsure 11/06/2022 6:18 PM CDT documented as of this encounter Plan of Treatment Upcoming Encounters Date Type Department Care Team (Late st Contact Info) Description 09/07/2024 10:00 AM CDT Office Visit [facility] [address] [phone] Fransisco Eddy MD [address] [place] [address] 024965 03/29/2025 3:40 PM CDT Office Visit [address] [phone] Alfreda Ray PA-C [address] [place] [address] [phone] documented as of this encounter Visit Diagnoses Not on filedocumented in this encounter Additional Health Concerns Assessment Noted Time PHQ-9 Depression Total Score: 4 09/05/19 22 10:39 AM CDT documented as of this encounter Care Teams Resident Care Coordinator Relationship Specialty Start Date End Date Alfreda Ray PA-C [address] [place] [address] [phone] PCP - General Family Medicine 12/30/21 Alfreda Ray PA-C [address] [place] [address] 66625 Referring Physician Family Medicine 12/31/21 Katrin Orellana PA-C [address] [place] [address] 29247 Physician Avionics Manager Dermatology 12/31/21 Shanna Vang PA-C [address] [place] [address] 284[address] Assigned Cancer Care Provider 01/10/22 Fransicso Eddy MD [address] [place] [address] Assigned Rheumatology Provider 05/09/22 Katrin Orellana PA-C [address] [place] [address] 88309 Assigned Surgical Provider 08/15/22 02/10/24 Cristina Hsieh, [facility] [address] [place] [address] [place] [address] Pharmacist Pharmacist 09/07/22 Alfreda Ray PA-C [address] [place] [address] 47080 Assigned Pain Medication Provider 09/05/22 09/10/23 Alfreda Ray PA-C [address] [place] [address] 97970 Assigned PCP 08/29/22 Cristina Hsieh, [facility] 1600 [facility] 101 [place] [address] Assigned MTM Pharmacist 09/26/22 Dakota Tatum MD [address] [place] [address] [phone] Cardiovascular Disease 03/25/23 Dakota Tatum MD [address] [place] [address] 620765 Assigned Heart and Vascular Provider 05/01/23 [place] [address] [address], [facility] [address] [place] [address] Assigned Musculoskeletal Provider 04/12/24 documented as of this encounter
--- OUTSIDE RECORDS SUMMARY | 2024-06-22 23:08 | XMS_ITS | Encounter Summary ---
Author Organization [place] Address [address] [place] [address] 19042 Care Team Providers Care Head Housekeeper Name Role Phone Esperanza Gatica MD Primary Care Provider + Esperanza Gatica MD Unavailable + Jesús Orourke MD Unavailable Alfreda Ray-C Primary Care Provider + Alfreda RayC Unavailable +260 Katrin Orellana PA-C Unavailable +[phone] Shanna Vang PA-C Unavailable +[phone] Fransisco Eddy MD Unavailable +[phone] Esperanza Gatica MD Unavailable + Esperanza Gatica MD Unavailable + Katrin OrellanaC Unavailable +[phone] Cristina Hsieh [facility] Unavailable +[phone] Alfreda Ray PA-C Unavailable +2600 Alfreda Ray PA-C Unavailable +2600 Cristina Hsieh [facility] Unavailable +[phone] Dakota Tatum MD Unavailable Dakota Tatum MD Unavailable + [phone] Srinivas Marie DO Unavailable [phone] Reason for Visit * Reason Onset Date Comments Refill Request 12/23/2021 Encounter Details Date Type Department Care Team (Late st Contact Info) Description 12/23/2021 MyC Refill [facility] [address] [place] [address] [place] [address] [place] [address] Refill Request Social History Tobacco Use Types Packs/Day Years Used Date Smoking Tobacco: Former Cigarettes 1 5 0 06/21/1963 - 06/21/1968 Smokeless Tobacco: Never Comments:not a smoker Alcohol Use Standard Drinks/Week Comments Yes 0 (1 standard drink = 0.6 oz pur e alcohol) Occasionally - 1 per week PHQ-2 Answer Date Recorded PHQ-2 Score 0 10/21/2021 Comments No Sex and Gender Information Value Date Recorded Sex Assigned at Female 08/17/2018 7:56 AM SEISMIC COMPUTER Legal Sex Female 4:24 AM SEISMIC COMPUTER Gender Identity Female 08/17/2018 7:56 AM SEISMIC COMPUTER Sexual Orientation Straight 08/17/2018 7: 56 AM SEISMIC COMPUTER COVID-19 Exposure Response Date Recorded In the last 10 days, have yo u been in contact with someone who was confirmed or suspected to have Coronavirus/COVID-19? No / Unsure 12/26/2021 11:11 AM CDT documented as of this encounter Miscellaneous Notes * Telephone Encounter - Yesi Britton RN - 12/25/2021 12:22 PM CDT Tramadol 50 mg Last Written Prescription Date: 09/04/21 Last Fill Quantity: 90, # refills: 0 Last office visit: 09/04/2021 with prescribing provider: Future Office Visit: Next 5 appointments (look out 90 days) Dec 30, 2021 2:40 PM (Arrive by 2:20 PM) Provider Visit with Alfreda Ray PA-C [facility] (M [address] [phone] Mar 05, 2022 2:00 PM (Arrive by 1:40 PM) Annual Wellness Visit with Esperanza Gatica MD [facility] ([facility] [address] [place] [phone] Yesi Britton RN documented in this encounter Plan of Treatment Upcoming Encounters Date Type Department Care Team (Late st Contact Info) Description 09/07/2024 10:00 AM CDT Office Visit [facility] [place] [address] [place] [phone] Fransisco Eddy MD [address] [place] [address] 140035 03/29/2025 3:40 PM CDT Office Visit [address] [phone] Alfreda Ray PA-C [address] [place] [address] 954572 documented as of this encounter Visit Diagnoses Diagnosis Primary osteoarthritis involving multiple joints documented in this encounter Additional Health Concerns Assessment Noted Time PHQ-9 Depression Total Score: 4 09/05/19 10:39 AM CDT documented as of this encounter Care Teams Head Housekeeper Relationship Specialty Start Date End Date Esperanza Gatica MD PCP - General Family Practice 10/13/11 12/29/21 Alfreda Ray PA-C [address] [place] [address] 533452 PCP - General Family Medicine 12/30/21 [place] [address] [place] [address] Assigned PCP 09/29/20 07/31/22 Jesú[place] [address] [address] Assigned Musculoskeletal Provider 10/20/20 04/17/22 Alfreda Ray PA-C [address] [place] [address] [phone] Referring Physician Family Medicine 12/31/21 Katrin Orellana PA-C [address] [place] [address] 604555 Physician Granulator Tender Dermatology 12/31/21 Shanna Vang PA-C [facility] [address] 548974 Assigned Cancer Care Provider 01/10/22 Fransisco Eddy MD [address] [place] [address] [phone] Assigned Rheumatology Provider 05/09/22 [place] [address] [address] [address] Assigned Pain Medication Provider 06/29/22 09/04/22 [place] [address] [address] [address] Assigned PCP 08/15/22 08/28/22 Katrin Orellana PA-C [address] [place] [address] 005645 Assigned Surgical Provider 08/15/22 02/10/24 Cristina Hsieh RPH [address] [facility] LISBETH HERNANDEZ [address] Pharmacist Pharmacist 09/07/22 Alfreda Ray PA-C [address] [place] [address] 947822 Assigned Pain Medication Provider 09/05/22 09/10/23 Alfreda Ray PA-C [address] [place] [address] [phone] Assigned PCP 08/29/22 Cristina Hsieh [address] [place] [address] Assigned MTM Pharmacist 09/26/22 Dakota Tatum MD [address] [place] [address] 507645 Cardiovascular Disease 03/25/23 Dakota Tatum MD [address] [place] [address] 93541 Assigned Heart and Vascular Provider 05/01/23 [place] [address] [address] Assigned Musculoskeletal Provider 04/12/24 documented as of this encounter
--- OUTSIDE RECORDS SUMMARY | 2024-06-22 23:08 | XMS_ITS | Encounter Summary ---
Author Organization [facility] Address [address] [place] [address] 59[address] Care Team Providers Care Service Line Layer Name Role Phone Esperanza Gatica MD Primary Care Provider + Esperanza Gatica MD Unavailable + Jesús Orourke MD Unavailable Alfreda Ray-C Primary Care Provider + Alfreda RayC Unavailable +260 Katrin Orellana PA-C Unavailable +1-19 Shanna Vang PA-C Unavailable +[phone] Fransisco Eddy MD Unavailable +[phone] Esperanza Gatica MD Unavailable + Esperanza Gatica MD Unavailable + Katrin OrellanaC Unavailable +[phone] Cristina Hsieh [facility] Unavailable +[phone] Alfreda Ray PA-C Unavailable +2600 Alfreda Ray PA-C Unavailable +2600 Cristina Hsieh [facility] Unavailable +[phone] Dakota Tatum MD Unavailable Dakota Tatum MD Unavailable + [phone] Srinivas Marie DO Unavailable +[phone] Encounter Details Date Type Department Care Team (Late st Contact Info) Description 03/03/2021 MyC Medical Advice [facility] [address] [place] [phone] [place] [address] [place] [address] Social History Tobacco Use Types [...] Sex Assigned at Female 08/17/2018 7:56 AM FUEL STORAGE TECHNICIAN Legal Sex Female 4:24 AM FUEL STORAGE TECHNICIAN Gender Identity Female 08/17/2018 7:56 AM FUEL STORAGE TECHNICIAN Sexual Orientation Straight 08/17/2018 7: 56 AM FUEL STORAGE TECHNICIAN COVID-19 Exposure Response Date Recorded In the last month, have you been in contact with someone who was confirmed or suspected to have Coronavirus / COVID-19? No / Unsure 02/27/2021 10:56 AM CDT documented as of this encounter Miscellaneous Notes * Telephone Encounter - So Mathur RN - 03/03/2021 4:49 PM CDT Will forward to Dr. Gatica - see mychart. documented in this encounter Plan of Treatment Upcoming Encounters Date Type Department Care Team (Late Contact Info) Description 09/07/2024 10:00 AM CDT Office Visit [address] [place] [address] Fransisco Eddy MD [address] [place] [address] 03/29/2025 3:40 PM CDT Office Visit [address] [phone] Alfreda Ray PA-C [address] [place] [address] 923612 documented as of this encounter Visit Diagnoses Not on filedocumented in this encounter Additional Health Concerns Infection Onset Date Last Indicated Resolved Time Rule Out COVID-19 05/08/2021 05/08/2021 05/09/2021 9:08 PM FUEL STORAGE TECHNICIAN Assessment Noted Time PHQ-9 Depression Total Score: 0 08/31/19 21 11:22 AM FUEL STORAGE TECHNICIAN documented as of this encounter Care Teams Service Line Layer Relationship Specialty Start Date End Date Esperanza Gatica MD PCP - General Family Practice 10/13/11 12/29/21 Alfreda Ray PA-C [address] [place] [address] 174402 PCP - General Family Medicine 12/30/21 [place] [address] [place] [address] Assigned PCP 09/29/20 07/31/22 [place] [address] [address] [place] [address] Assigned Musculoskeletal Provider 10/20/20 04/17/22 Alfreda Ray PA-C [address] [place] [address] Referring Physician Family Medicine 12/31/21 Katrin Orellana PA-C [address] [place] [address] Physician Wood Grinder Dermatology 12/31/21 Shanna Vang PA-C [address] [place] [address] Assigned Cancer Care Provider 01/10/22 Fransisco Eddy MD [address] [place] [address] [phone] Assigned Rheumatology Provider 05/09/22 [place] [address] [place] [address] Assigned Pain Medication Provider 06/29/22 09/04/22 [place] [address] [place] [address] Assigned PCP 08/15/22 08/28/22 Katrin Orellana PA-C [address] [place] [address]64 Assigned Surgical Provider 08/15/22 02/10/24 Cristina Hsieh [facility] [address] [place] [address] [place] [address] Pharmacist Pharmacist 09/07/22 Alfreda Ray PA-C [address] [place] [address] Assigned Pain Medication Provider 09/05/22 09/10/23 Alfreda Ray PA-C [address] [place] [address] Assigned PCP 08/29/22 Cristina Hsieh, [facility] [address] [place] [address] Assigned MTM Pharmacist 09/26/22 Dakota Tatum MD [address] [place] [address] Cardiovascular Disease 03/25/23 Dakota Tatum MD [address] [place] [address] Assigned Heart and Vascular Provider 05/01/23 [place] [address] [address] Assigned Musculoskeletal Provider 04/12/24 documented as of this encounter
--- OUTSIDE RECORDS SUMMARY | 2024-06-22 23:08 | XMS_ITS | Encounter Summary ---
Author Organization [facility] Address [address] [place] [address] Care Team Providers Care Diet Therapist Name Role Phone Esperanza Gatica MD Primary Care Provider + Esperanza Gatica MD Unavailable + Jesús Orourke MD Unavailable Alfreda Ray-C Primary Care Provider + Alfreda RayC Unavailable +260 Katrin Orellana PA-C Unavailable +[phone] Shanna Vang PA-C Unavailable +[phone] Fransisco Eddy MD Unavailable +[phone] Esperanza Gatica MD Unavailable + Esperanza Gatica MD Unavailable + Katrin OrellanaC Unavailable +[phone] Cristina Hsieh [facility] Unavailable +[phone] Alfreda Ray PA-C Unavailable +2600 Alfreda Ray PA-C Unavailable +2600 Cristina Hsieh [facility] Unavailable +[phone] Dakota Tatum MD Unavailable Dakota Tatum MD Unavailable +[phone] Srinivas Marie Unavailable [phone] Encounter Details Date Type Department Care Team (Late st Contact Info) Description 01/02/2021 MyC Medical Advice [facility] [address] [place] [address] [place] [address] [place] [address] Social History Tobacco Use Types [...] Sex Assigned at Female 08/17/2018 7:56 AM CORPORATE BUYER Legal Sex Female 4:24 AM CORPORATE BUYER Gender Identity Female 08/17/2018 7:56 AM CORPORATE BUYER Sexual Orientation Straight 08/17/2018 7: 56 AM CORPORATE BUYER COVID-19 Exposure Response Date Recorded In the last month, have you been in contact with someone who was confirmed or suspected to have Coronavirus / COVID-19? No / Unsure 12/31/2020 8:35 AM CDT documented as of this encounter Plan of Treatment Upcoming Encounters Date Type Department Care Team (Late st Contact Info) Description 09/07/2024 10:00 AM CDT Office Visit [facility] [address] [place] [address] Fransisco Eddy MD [address] [place] [address] 03/29/2025 3:40 PM CDT Office Visit [address] [phone] Alfreda Ray PA-C [address] [place] [address] documented as of this encounter Visit Diagnoses Not on filedocumented in this encounter Additional Health Concerns Infection Onset Date Last Indicated Resolved Time Rule Out COVID-19 05/08/2021 05/08/2021 05/09/2021 9:08 PM CORPORATE BUYER Assessment Noted Time PHQ-9 Depression Total Score: 0 08/31/19 21 11:22 AM CORPORATE BUYER documented as of this encounter Care Teams Diet Therapist Relationship Specialty Start Date End Date Esperanza Gatica MD PCP - General Family Practice 10/13/11 12/29/21 Alfreda Ray PA-C [address] [place] [address] PCP - General Family Medicine 12/30/21 [place] [address] [facility] [address] Assigned PCP 09/29/20 07/31/22 Jesú[place] [address] [place] [address] Assigned Musculoskeletal Provider 10/20/20 04/17/22 Alfreda Ray PA-C [address] [place] [address] 114042 Referring Physician Family Medicine 12/31/21 Katrin Orellana PA-C [address] [place] [address] Physician Departmental Buyer Dermatology 12/31/21 Shanna Vang PA-C [address] [place] [address] Assigned Cancer Care Provider 01/10/22 Fransisco Eddy MD [address] [place] [address] [address] [place] [address] Assigned Rheumatology Provider 05/09/22 [place] [address] [place] [address] Assigned Pain Medication Provider 06/29/22 09/04/22 [place] [address] [place] [address] Assigned PCP 08/15/22 08/28/22 Katrin Orellana PA-C [address] [place] [address] 288755 Assigned Surgical Provider 08/15/22 02/10/24 Cristina Hsieh [facility] [address] [place] [address] L[place]BETH HERNANDEZ [address] Pharmacist Pharmacist 09/07/22 Alfreda Ray PA-C [address] [place] [address] 871782 Assigned Pain Medication Provider 09/05/22 09/10/23 Alfreda Ray PA-C [address] [place] [address] 748052 Assigned PCP 08/29/22 Cristina Hsieh, [facility] [address] [facility] [address] [place] [address] Assigned MTM Pharmacist 09/26/22 Dakota Tatum MD [address] [place] [address] 242485 Cardiovascular Disease 03/25/23 Dakota Tatum MD [address] [place] [address] 053735 Assigned Heart and Vascular Provider 05/01/23 [place] [address] [address], [facility] [address] [place] [address] Assigned Musculoskeletal Provider 04/12/24 documented as of this encounter
--- OUTSIDE RECORDS SUMMARY | 2024-06-22 23:09 | XMS_ITS | Encounter Summary ---
Author Organization [place] [facility] Address [address] [place] [address] Care Team Providers Care Shipping And Receiving Operator Name Role Phone Esperanza Gatica MD Primary Care Provider + Esperanza Gatica MD Unavailable + Jesús Orourke MD Unavailable Alfreda Ray-C Primary Care Provider + Alfreda RayC Unavailable +260 Katrin Orellana PA-C Unavailable +[phone] Shanna Vang PA-C Unavailable +[phone] Fransisco Eddy MD Unavailable +[phone] Esperanza Gatica MD Unavailable + Esperanza Gatica MD Unavailable + Katrin OrellanaC Unavailable +[phone] Cristina Hsieh [facility] Unavailable +[phone] Alfreda Ray PA-C Unavailable +2600 Alfreda Ray PA-C Unavailable +2600 Cristina Hsieh [facility] Unavailable +[phone] Dakota Tatum MD Unavailable Dakota Tatum MD Unavailable +[phone] Srinivas Marie Unavailable [phone] Encounter Details Date Type Department Care Team (Late Contact Info) Description 10/29/2020 MyC Medical Advice [facility] [address] [place] [address] [place] [address] [place] [address] Social History Tobacco Use Types [...] Sex Assigned at Female 08/17/2018 7:56 AM ENTERTAINMENT MUSICIAN Legal Sex Female 4:24 AM ENTERTAINMENT MUSICIAN Gender Identity Female 08/17/2018 7:56 AM ENTERTAINMENT MUSICIAN Sexual Orientation Straight 08/17/2018 7: 56 AM ENTERTAINMENT MUSICIAN COVID-19 Exposure Response Date Recorded In the last month, have you been in contact with someone who was confirmed or suspected to have Coronavirus / COVID-19? No / Unsure 10/29/2020 2:27 PM CDT documented as of this encounter Plan of Treatment Upcoming Encounters Date Type Department Care Team (Late Contact Info) Description 09/07/2024 10:00 AM CDT Office Visit [facility] [address] [place] [address] Fransisco Eddy MD [address] [place] [address] 03/29/2025 3:40 PM CDT Office Visit [address] [phone] Alfreda Ray PA-C [address] [place] [address] documented as of this encounter Visit Diagnoses Not on filedocumented in this encounter Additional Health Concerns Infection Onset Date Last Indicated Resolved Time Rule Out COVID-19 05/08/2021 05/08/2021 05/09/2021 9:08 PM ENTERTAINMENT MUSICIAN Assessment Noted Time PHQ-9 Depression Total Score: 0 08/31/19 21 11:22 AM ENTERTAINMENT MUSICIAN documented as of this encounter Care Teams Shipping And Receiving Operator Relationship Specialty Start Date End Date Esperanza Gatica MD PCP - General Family Practice 10/13/11 12/29/21 Alfreda Ray PA-C [address] [place] [address] PCP - General Family Medicine 12/30/21 [place] [address] [facility] [place] [address] Assigned PCP 09/29/20 07/31/22 Jesú[place] [address] [place] [address] Assigned Musculoskeletal Provider 10/20/20 04/17/22 Alfreda Ray PA-C [address] [place] [address] 326942 Referring Physician Family Medicine 12/31/21 Katrin Orellana PA-C [address] [place] [address] Physician Musical Performer Dermatology 12/31/21 Shanna Vang PA-C [address] [place] [address] Assigned Cancer Care Provider 01/10/22 Fransisco Eddy MD [address] [place] [address] 88 [place] [address] Assigned Rheumatology Provider 05/09/22 [place] [address] [place] [address] Assigned Pain Medication Provider 06/29/22 09/04/22 [place] [address] [place] [address] Assigned PCP 08/15/22 08/28/22 Katrin Orellana PA-C [address] [place] [address] 060745 Assigned Surgical Provider 08/15/22 02/10/24 Cristina Hsieh [facility] [address] [place] [address] [place] HERNANDE[place] [address] Pharmacist Pharmacist 09/07/22 Alfreda Ray PA-C [address] [place] [address] 889652 Assigned Pain Medication Provider 09/05/22 09/10/23 Alfreda Ray PA-C [address] [place] [address] 276112 Assigned PCP 08/29/22 Cristina Hsieh, [facility] [address] [facility] [address] [place] [address] Assigned MTM Pharmacist 09/26/22 Dakota Tatum MD [address] [place] [address] 750595 Cardiovascular Disease 03/25/23 Dakota Tatum MD [address] [place] [address] 093675 Assigned Heart and Vascular Provider 05/01/23 [place] [address] [address], [address] [place] [address] Assigned Musculoskeletal Provider 04/12/24 documented as of this encounter
--- OUTSIDE RECORDS SUMMARY | 2024-06-22 23:09 | XMS_ITS | Encounter Summary ---
Author Organization [facility] Address [address] [place] [address] Care Team Providers Care Job Placement Specialist Name Role Phone Esperanza Gatica MD Primary Care Provider + Esperanza Gatica MD Unavailable + Esperanza Gatica MD Unavailable + Jesús Orourke MD Unavailable Alfreda aRy-C Primary Care Provider + Alfreda Ray-C Unavailable +260 Katrin Orellana PA-C Unavailable +1-44 Shanna Vang PA-C Unavailable +[phone] Fransisco Eddy MD Unavailable +[phone] Esperanza Gatica MD Unavailable + Esperanza Gatica MD Unavailable + Katrin OrellanaC Unavailable +1-45 Cristina Hsieh [facility] Unavailable +[phone] Alfreda Ray PA-C Unavailable +2600 Alfreda Ray PA-C Unavailable +260 Cristina Hsieh [facility] Unavailable +[phone] Dakota Tatum MD Unavailable +1 Dakota Tatum MD Unavailable + Cynthia, Srinivas Unavailable +[phone] Encounter Details Date Type Department Care Team (Late st Contact Info) Description 08/18/2020 MyC Medical Advice [facility] [address] [place] [address] [place] [address] [place] [address] Primary osteoarthritis involving multiple joints Social History Tobacco Use Types Packs/Day Years Used Date Smoking Tobacco: Former Cigarettes 1 5 0 06/21/1963 - 06/21/1968 Smokeless Tobacco: Never Comments:not a smoker Alcohol Use Standard Drinks/Week Comments Yes 0 (1 standard drink = 0.6 oz pure alcohol) Very occasionally - 2 per month PHQ-2 Answer Date Recorded PHQ-2 Score 0 07/03/2018 Comments No Sex and Gender Information Value Date Recorded Sex Assigned at Female 08/17/2018 7:56 AM J2EE DEVELOPER Legal Sex Female 4:24 AM J2EE DEVELOPER Gender Identity Female 08/17/2018 7:56 AM J2EE DEVELOPER Sexual Orientation Straight 08/17/2018 7: 56 AM J2EE DEVELOPER documented as of this encounter Plan of Treatment Upcoming Encounters Date Type Department Care Team (Late st Contact Info) Description 09/07/2024 10:00 AM CDT Office Visit [facility] [address] [phone] Fransisco Eddy MD [address] [place] [address] 407005 03/29/2025 3:40 PM CDT Office Visit [address] [phone] Alfreda Ray PA-C [address] [place] [address] [phone] documented as of this encounter Visit Diagnoses Diagnosis Primary osteoarthritis involving multiple joints documented in this encounter Additional Health Concerns Infection Onset Date Last Indicated Resolved Time Rule Out COVID-19 05/08/2021 05/08/2021 05/09/2021 9:08 PM J2EE DEVELOPER Assessment Noted Time PHQ-9 Depression Total Score: 1 08/20/19 19 1:44 PM J2EE DEVELOPER documented as of this encounter Care Teams Job Placement Specialist Relationship Specialty Start Date End Date Esperanza Gatica MD PCP - General Family Practice 10/13/11 12/29/21 Alfreda Ray PA-C [address] [place] [address]138 PCP - General Family Medicine 12/30/21 [place] [address] [place] [address] Assigned PCP 05/26/20 09/28/20 [place] [address] [place] [address] Assigned PCP 09/29/20 07/31/22 Jesú[place] [address] [place] [address] Assigned Musculoskeletal Provider 10/20/20 04/17/22 Alfreda Ray PA-C [address] [place] [address] Referring Physician Family Medicine 12/31/21 Katrin Orellana PA-C [address] [place] [address]66 Physician Caramel Coloring Operator Dermatology 12/31/21 Shanna Vang PA-C [address] [address] Assigned Cancer Care Provider 01/10/22 Fransisco Eddy MD [address] [place] [address] Assigned Rheumatology Provider 05/09/22 [place] [address] [place] [address] Assigned Pain Medication Provider 06/29/22 09/04/22 [place] [address] [place] [address] Assigned PCP 08/15/22 08/28/22 Katrin Orellana PA-C [address] [place] [address]28 Assigned Surgical Provider 08/15/22 02/10/24 Cristina Hsieh, [facility] [address] [place] [address] [place] [address] Pharmacist Pharmacist 09/07/22 Alfreda Ray PA-C [address] [place] [address] 9[address]37 Assigned Pain Medication Provider 09/05/22 09/10/23 Alfreda Ray PA-C [address] [place] [address] Assigned PCP 08/29/22 Cristina Hsieh, [facility] [address] [facility] [address] [place] [address] Assigned MTM Pharmacist 09/26/22 Dakota Tatum MD [address] [place] [address] Cardiovascular Disease 03/25/23 Dakota Tatum MD [address] [place] [address] Assigned Heart and Vascular Provider 05/01/23 [place] [address] [address] , [facility] [address] [place] [address] Assigned Musculoskeletal Provider 04/12/24 documented as of this encounter
--- OUTSIDE RECORDS SUMMARY | 2024-06-22 23:09 | XMS_ITS | Encounter Summary ---
Author Organization [place] Address [address] [place] [address] Care Team Providers Care Upholstery Cleaner Name Role Phone Esperanza Gatica MD Primary Care Provider + Esperanza Gatica MD Unavailable + Jesús Orourke MD Unavailable Alfreda Ray-C Primary Care Provider + Alfreda RayC Unavailable +260 Katrin Orellana PA-C Unavailable +1-67 Shanna Vang PA-C Unavailable +[phone] Fransisco Eddy MD Unavailable +[phone] Esperanza Gatica MD Unavailable + Esperanza Gatica MD Unavailable + Katrin OrellanaC Unavailable +[phone] Cristina Hsieh [facility] Unavailable +[phone] Alfreda Ray PA-C Unavailable +2600 Alfreda Ray PA-C Unavailable +2600 Cristina Hsieh [facility] Unavailable +[phone] Dakota Tatum MD Unavailable Dakota Tatum MD Unavailable +[phone] Srinivas Marie DO Unavailable [phone] Encounter Details Date Type Department Care Team (Late st Contact Info) Description 10/23/2020 MyC Medical Advice [facility] [address] [facility] [address] [place], [place] [address] Jesú[place] [address] [facility] [address] [place], [place] 6329[address] Social History Tobacco Use Types Packs/Day Years [...] Sex Assigned at Female 08/17/2018 7:56 AM WOOD HEEL FITTER MACHINE Legal Sex Female 4:24 AM WOOD HEEL FITTER MACHINE Gender Identity Female 08/17/2018 7:56 AM WOOD HEEL FITTER MACHINE Sexual Orientation Straight 08/17/2018 7: 56 AM WOOD HEEL FITTER MACHINE COVID-19 Exposure Response Date Recorded In the last month, have you been in contact with someone who was confirmed or suspected to have Coronavirus / COVID-19? No / Unsure 10/16/2020 2:03 PM CDT documented as of this encounter Plan of Treatment Upcoming Encounters Date Type Department Care Team (Late st Contact Info) Description 09/07/2024 10:00 AM CDT Office Visit [facility] [address] [place] [address] Fransisco Eddy MD [address] [place] [address] 03/29/2025 3:40 PM CDT Office Visit [address] [phone] Alfreda Ray PA-C [address] [place] [address] documented as of this encounter Visit Diagnoses Not on filedocumented in this encounter Additional Health Concerns Infection Onset Date Last Indicated Resolved Time Rule Out COVID-19 05/08/2021 05/08/2021 05/09/2021 9:08 PM WOOD HEEL FITTER MACHINE Assessment Noted Time PHQ-9 Depression Total Score: 0 08/31/19 21 11:22 AM WOOD HEEL FITTER MACHINE documented as of this encounter Care Teams Upholstery Cleaner Relationship Specialty Start Date End Date Esperanza Gatica MD PCP - General Family Practice 10/13/11 12/29/21 Alfreda Ray PA-C [address] [place] [address] PCP - General Family Medicine 12/30/21 [place] [address] [place] [address] Assigned PCP 09/29/20 07/31/22 Jesú[place] [address] [place] [address] Assigned Musculoskeletal Provider 10/20/20 04/17/22 Alfreda Ray PA-C [address] [place] [address] 157292 Referring Physician Family Medicine 12/31/21 Katrin Orellana PA-C [address] [place] [address] Physician Rubber Insulator Dermatology 12/31/21 Shanna Vang PA-C [address] [place] [address] Assigned Cancer Care Provider 01/10/22 Fransisco Eddy MD [address] [place] [address] 88 [place] [address] Assigned Rheumatology Provider 05/09/22 [place] [address] [place] [address] Assigned Pain Medication Provider 06/29/22 09/04/22 [place] [address] [place] [address] Assigned PCP 08/15/22 08/28/22 Katrin Orellana PA-C [address] [place] [address] 597545 Assigned Surgical Provider 08/15/22 02/10/24 Cristina Hsieh [facility] [address] [place] [address] LISBETH HERNANDEZ [address] Pharmacist Pharmacist 09/07/22 Alfreda Ray PA-C [address] [place] [address] Assigned Pain Medication Provider 09/05/22 09/10/23 Alfreda Ray PA-C [address] [place] [address] 856912 Assigned PCP 08/29/22 Cristina Hsieh, [facility] [address] [facility][1] [address] [place] [address] Assigned MTM Pharmacist 09/26/22 Dakota Tatum MD [address] [place] [address] 168335 Cardiovascular Disease 03/25/23 Dakota Tatum MD [address] [place] [address] 791005 Assigned Heart and Vascular Provider 05/01/23 [place] [address] [address], [address] [place] [address] Assigned Musculoskeletal Provider 04/12/24 documented as of this encounter
--- OUTSIDE RECORDS SUMMARY | 2024-06-22 23:09 | XMS_ITS | Encounter Summary ---
Author Organization [place] Address [address] [place] [address] Care Team Providers Care Regional Ehs Manager Name Role Phone Esperanza Gatica MD Primary Care Provider + Esperanza Gatica MD Unavailable + Jesús Orourke MD Unavailable Alfreda Ray-C Primary Care Provider + Alfreda RayC Unavailable +260 Katrin Orellana PA-C Unavailable +[phone] Shanna Vang PA-C Unavailable +[phone] Fransisco Eddy MD Unavailable +[phone] Esperanza Gatica MD Unavailable + Esperanza Gatica MD Unavailable + Katrin OrellanaC Unavailable +[phone] Cristina Hsieh [facility] Unavailable +[phone] Alfreda Ray PA-C Unavailable +2600 Alfreda Ray PA-C Unavailable +2600 Cristina Hsieh [facility] Unavailable +[phone] Dakota Tatum MD Unavailable Dakota Tatum MD Unavailable + [phone] Srinivas Marie DO Unavailable +[phone] Reason for Visit * Reason Onset Date Comments Refill Request 10/27/2020 Encounter Details Date Type Department Care Team ([facility] Contact Info) Description 10/27/2020 MyC Refill [address], [address] [place] [address] [place] [address] [place] [address] Refill Request Social History Tobacco [...] Sex Assigned at Female 08/17/2018 7:56 AM FEED RESEARCH TECHNICIAN Legal Sex Female 4:24 AM FEED RESEARCH TECHNICIAN Gender Identity Female 08/17/2018 7:56 AM FEED RESEARCH TECHNICIAN Sexual Orientation Straight 08/17/2018 7: 56 AM FEED RESEARCH TECHNICIAN COVID-19 Exposure Response Date Recorded In [...] Office Visit [facility] [address] [place] [address] Fransisco Eddy MD [address] [place] [address] 03/29/2025 3:40 PM CDT Office Visit [address] [place] [address] Alfreda Ray PA-C [address] [place] [address] documented as of this encounter Visit Diagnoses Diagnosis Primary osteoarthritis involving multiple joints documented in this encounter Additional Health Concerns Infection Onset Date Last Indicated Resolved Time Rule Out COVID-19 05/08/2021 05/08/2021 05/09/2021 9:08 PM FEED RESEARCH TECHNICIAN Assessment Noted Time PHQ-9 Depression Total Score: 0 08/31/19 11:22 AM FEED RESEARCH TECHNICIAN documented as of this encounter Care Teams Regional Ehs Manager Relationship Specialty Start Date End Date Esperanza Gatica MD PCP - General Family Practice 10/13/11 12/29/21 Alfreda Ray PA-C [address] [place] [address] PCP - General Family Medicine 12/30/21 [place] [address] [facility] [address] Assigned PCP 09/29/20 07/31/22 [place] [address] [place] [address] Assigned Musculoskeletal Provider 10/20/20 04/17/22 Alfreda Ray PA-C [address] [place] [address] Referring Physician Family Medicine 12/31/21 Katrin Orellana PA-C [address] [place] [address]65 Physician Parts Identifier Dermatology 12/31/21 Shanna Vang PA-C [address] [address] Assigned Cancer Care Provider 01/10/22 Fransisco Eddy MD [address] [place] [address] Assigned Rheumatology Provider 05/09/22 [place] [address] [place] [address] Assigned Pain Medication Provider 06/29/22 09/04/22 [place] [address] [place] [address] Assigned PCP 08/15/22 08/28/22 Katrin Orellana PA-C [address] [place] [address]697 Assigned Surgical Provider 08/15/22 02/10/24 Cristina Hsieh [facility] [address] [place] [address] [place] [address] Pharmacist Pharmacist 09/07/22 Alfreda Ray PA-C [address] [place] [address] Assigned Pain Medication Provider 09/05/22 09/10/23 Alfreda Ray PA-C [address] [place] [address] 94686 Assigned PCP 08/29/22 Cristina Hsieh, [facility] [address] [address] Assigned MTM Pharmacist 09/26/22 Dakota Tatum MD [address] [place] [address] Cardiovascular Disease 03/25/23 Dakota Tatum MD [address] [place] [address]883 Assigned Heart and Vascular Provider 05/01/23 [place] [address] [address], [address] [address] Assigned Musculoskeletal Provider 04/12/24 documented as of this encounter
--- OUTSIDE RECORDS SUMMARY | 2024-06-22 23:09 | XMS_ITS | Encounter Summary ---
Author Organization [place] Address [address] [place] [address] Care Team Providers Care Grinder Set Up Operator Thread Tool Name Role Phone Esperanza Gatica MD Primary Care Provider + Esperanza Gatica MD Unavailable + Jesús Orourke MD Unavailable Alfreda Ray-C Primary Care Provider + Alfreda RayC Unavailable +260 Katrin Orellana PA-C Unavailable +[phone] Shanna Vang PA-C Unavailable +[phone] Fransisco Eddy MD Unavailable +[phone] Esperanza Gatica MD Unavailable + Esperanza Gatica MD Unavailable + Katrin OrellanaC Unavailable +[phone] Cristina Hsieh [facility] Unavailable +[phone] Alfreda Ray PA-C Unavailable +2600 Alfreda Ray PA-C Unavailable +2600 Cristina Hsieh [facility] Unavailable +[phone] Dakota Tatum MD Unavailable Dakota Ttaum MD Unavailable +[phone] Srinivas Marie Unavailable [phone] Encounter Details Date Type Department Care Team (Late st Contact Info) Description 10/11/2020 Documentation Only [facility] [address] [place] [phone] [place] [address] [place] [address] Social History Tobacco Use Types [...] Sex Assigned at Female 08/17/2018 7:56 AM ADMISSION DISCHARGE RN Legal Sex Female 4:24 AM ADMISSION DISCHARGE RN Gender Identity Female 08/17/2018 7:56 AM ADMISSION DISCHARGE RN Sexual Orientation Straight 08/17/2018 7: 56 AM ADMISSION DISCHARGE RN COVID-19 Exposure Response Date Recorded In the last month, have you been in contact with someone who was confirmed or suspected to have Coronavirus / COVID-19? No / Unsure 10/07/2020 10:09 AM CDT documented as of this encounter Plan of Treatment Upcoming Encounters Date Type Department Care Team (Late st Contact Info) Description 09/07/2024 10:00 AM CDT Office Visit [facility] [address] [place] [address] Fransisco Eddy MD [address] [place] [address] 03/29/2025 3:40 PM CDT Office Visit [address] [phone] Alfreda Ray PA-C [address] [place] [address] documented as of this encounter Visit Diagnoses Not on filedocumented in this encounter Additional Health Concerns Infection Onset Date Last Indicated Resolved Time Rule Out COVID-19 05/08/2021 05/08/2021 05/09/2021 9:08 PM ADMISSION DISCHARGE RN Assessment Noted Time PHQ-9 Depression Total Score: 0 08/31/19 21 11:22 AM ADMISSION DISCHARGE RN documented as of this encounter Care Teams Grinder Set Up Operator Thread Tool Relationship Specialty Start Date End Date Esperanza Gatica MD PCP - General Family Practice 10/13/11 12/29/21 Alfreda Ray PA-C [address] [place] [address] PCP - General Family Medicine 12/30/21 [place] [address] [place] [address] Assigned PCP 09/29/20 07/31/22 Jesú[place] [address] [place] [address] Assigned Musculoskeletal Provider 10/20/20 04/17/22 Alfreda Ray PA-C [address] [place] [address] 845762 Referring Physician Family Medicine 12/31/21 Katrin Orellana PA-C [address] [place] [address] Physician Voice Over Announcer Dermatology 12/31/21 Shanna Vang PA-C [address] [place] [address] Assigned Cancer Care Provider 01/10/22 Fransisco Eddy MD [address] [place] [address] 88 [place] [address] Assigned Rheumatology Provider 05/09/22 [place] [address] [place] [address] Assigned Pain Medication Provider 06/29/22 09/04/22 [place] [address] [place] [address] Assigned PCP 08/15/22 08/28/22 Katrin Orellana PA-C [address] [place] [address] 211765 Assigned Surgical Provider 08/15/22 02/10/24 Cristina Hsieh [facility] [address] [place] [address] LISBETH HERNANDEZ [address] Pharmacist Pharmacist 09/07/22 Alfreda Ray PA-C [address] [place] [address] Assigned Pain Medication Provider 09/05/22 09/10/23 Alfreda Ray PA-C [address] [place] [address] 769582 Assigned PCP 08/29/22 Cristina Hsieh, [facility] 1600 [facility] [address] [place] [address] Assigned MTM Pharmacist 09/26/22 Dakota Tatum MD [address] [place] [address] 480215 Cardiovascular Disease 03/25/23 Dakota Tatum MD [address] [place] [address] 727535 Assigned Heart and Vascular Provider 05/01/23 [place] [address] [address], [facility] [address] [place] [address] Assigned Musculoskeletal Provider 04/12/24 documented as of this encounter
--- OUTSIDE RECORDS SUMMARY | 2024-06-22 23:09 | XMS_ITS | Encounter Summary ---
Author Organization [place] Address [address] [place] [address] Care Team Providers Care Clinical Rn Manager Name Role Phone Esperanza Gatica MD Primary Care Provider + Esperanza Gatica MD Unavailable + Jesús Orourke MD Unavailable Alfreda Ray-C Primary Care Provider + Alfreda RayC Unavailable +260 Katrin Orellana PA-C Unavailable +[phone] Shanna Vang PA-C Unavailable +[phone] Fransisco Eddy MD Unavailable +[phone] Esperanza Gatica MD Unavailable + Esperanza Gatica MD Unavailable + Katrin OrellanaC Unavailable +[phone] Cristina Hsieh [facility] Unavailable +[phone] Alfreda Ray PA-C Unavailable +2600 Alfreda Ray PA-C Unavailable +2600 Cristina Hsieh [facility] Unavailable +[phone] Dakota Tatum MD Unavailable Dakota Tatum MD Unavailable +[phone] Srinivas Marie DO Unavailable [phone] Encounter Details Date Type Department Care Team (Late st Contact Info) Description 10/22/2020 MyC Medical Advice [facility] [place] [address] [facility] [address] [place], [place] [address] Jesú[place] [address] [facility] [address] [place], [place] [phone] Social History Tobacco Use Types Packs/Day Years [...] Sex Assigned at Female 08/17/2018 7:56 AM AUDIT CLERKS SUPERVISOR Legal Sex Female 4:24 AM AUDIT CLERKS SUPERVISOR Gender Identity Female 08/17/2018 7:56 AM AUDIT CLERKS SUPERVISOR Sexual Orientation Straight 08/17/2018 7: 56 AM AUDIT CLERKS SUPERVISOR COVID-19 Exposure Response Date Recorded In the last month, have you been in contact with someone who was confirmed or suspected to have Coronavirus / COVID-19? No / Unsure 10/16/2020 2:03 PM CDT documented as of this encounter Plan of Treatment Upcoming Encounters Date Type Department Care Team (Late st Contact Info) Description 09/07/2024 10:00 AM CDT Office Visit [facility] [address] [place] [address] Fransisco Eddy MD [address] [place] [address] 03/29/2025 3:40 PM CDT Office Visit [address] [address] Alfreda Rya PA-C [address] [place] [address] documented as of this encounter Visit Diagnoses Not on filedocumented in this encounter Additional Health Concerns Infection Onset Date Last Indicated Resolved Time Rule Out COVID-19 05/08/2021 05/08/2021 05/09/2021 9:08 PM AUDIT CLERKS SUPERVISOR Assessment Noted Time PHQ-9 Depression Total Score: 0 08/31/19 21 11:22 AM AUDIT CLERKS SUPERVISOR documented as of this encounter Care Teams Clinical Rn Manager Relationship Specialty Start Date End Date Esperanza Gatica MD PCP - General Family Practice 10/13/11 12/29/21 Alfreda Ray PA-C [address] [place] [address]265 PCP - General Family Medicine 12/30/21 [place] [address] [place] [address] Assigned PCP 09/29/20 07/31/22 Jesú[place] [address] [place] [address] Assigned Musculoskeletal Provider 10/20/20 04/17/22 Alfreda Ray PA-C [address] [place] [address] 100822 Referring Physician Family Medicine 12/31/21 Katrin Orellana PA-C [address] [place] [address] Physician Cigar Packer And Grader Dermatology 12/31/21 Shanna Vang PA-C [address] [place] [address] Assigned Cancer Care Provider 01/10/22 Fransisco Eddy MD [address] [place] [address] 88 [place] [address] Assigned Rheumatology Provider 05/09/22 [place] [address] [place] [address] Assigned Pain Medication Provider 06/29/22 09/04/22 [place] [address] [place] [address] Assigned PCP 08/15/22 08/28/22 Katrin Orellana PA-C [address] [place] [address] 629385 Assigned Surgical Provider 08/15/22 02/10/24 Cristina Hsieh [facility] [address] [place] [address] LISBETH HERNANDEZ [address] Pharmacist Pharmacist 09/07/22 Alfreda Ray PA-C [address] [place] [address] Assigned Pain Medication Provider 09/05/22 09/10/23 Alfreda Ray PA-C [address] [place] [address] 794602 Assigned PCP 08/29/22 Cristina Hsieh, [facility] 1600 [facility] 101 [place] [address] Assigned MTM Pharmacist 09/26/22 Dakota Tatum MD [address] [place] [address] 938865 Cardiovascular Disease 03/25/23 Dakota Tatum MD [address] [place] [address] 505495 Assigned Heart and Vascular Provider 05/01/23 [place] [address] CE[address]AST[address]UM, [facility] [address] [place] [address] Assigned Musculoskeletal Provider 04/12/24 documented as of this encounter
--- OUTSIDE RECORDS SUMMARY | 2024-06-22 23:09 | XMS_ITS | Encounter Summary ---
Author Organization [place] Address [address] [place] [address] Care Team Providers Care Web Worker Name Role Phone Esperanza Gatica MD Primary Care Provider + Esperanza Gatica MD Unavailable + Jesús Orourke MD Unavailable Alfreda Ray-C Primary Care Provider + Alfreda RayC Unavailable +260 Katrin Orellana PA-C Unavailable +1-07 Shanna Vang PA-C Unavailable +[phone] Fransisco Eddy MD Unavailable +[phone] Esperanza Gatica MD Unavailable + Esperanza Gatica MD Unavailable + Katrin OrellanaC Unavailable +[phone] Cristina Hsieh [facility] Unavailable +[phone] Alfreda Ray PA-C Unavailable +2600 Alfreda Ray PA-C Unavailable +2600 Cristina Hsieh [facility] Unavailable +[phone] Dakota Tatum MD Unavailable Dakota Tatum MD Unavailable [phone] Srinivas Marie DO Unavailable [phone] Reason for Visit * Reason Comments Medication Refill Encounter Details Date Type Department Care Team (Late st Contact Info) Description 11/06/2020 Refill [facility] [address] [place] [address] [place] [address] [place] [address] Medication Refill Social History Tobacco Use Types [...] Sex Assigned at Female 08/17/2018 7:56 AM REFLOW OPERATOR Legal Sex Female 4:24 AM REFLOW OPERATOR Gender Identity Female 08/17/2018 7:56 AM REFLOW OPERATOR Sexual Orientation Straight 08/17/2018 7: 56 AM REFLOW OPERATOR COVID-19 Exposure Response Date Recorded In the last month, have you been in contact with someone who was confirmed or suspected to have Coronavirus / COVID-19? No / Unsure 11/05/2020 1:48 PM CDT documented as of this encounter Miscellaneous Notes * Telephone Encounter - Caitlin Waterman RN - 11/07/2020 10:23 AM CDT Prescription approved per [facility] protocol. Caitlin Waterman RN on 11/07/2020 at 10:23 AM documented in this encounter Plan of Treatment Upcoming Encounters Date Type Department Care Team (Late st Contact Info) Description 09/07/2024 10:00 AM CDT Office Visit [address] [address] Fransisco Eddy MD [address] [place] [address] 03/29/2025 3:40 PM CDT Office Visit [address] [phone] Alfreda Ray PA-C [address] [place] [address] 156342 documented as of this encounter Visit Diagnoses Diagnosis HTN, goal below 140/90 Unspecified essential hypertension documented in this encounter Additional Health Concerns Infection Onset Date Last Indicated Resolved Time Rule Out COVID-19 05/08/2021 05/08/2021 05/09/2021 9:08 PM REFLOW OPERATOR Assessment Noted Time PHQ-9 Depression Total Score: 0 08/31/19 21 11:22 AM REFLOW OPERATOR documented as of this encounter Care Teams Web Worker Relationship Specialty Start Date End Date Esperanza Gatica MD PCP - General Family Practice 10/13/11 12/29/21 Alfreda Ray PA-C [address] [place] [address] 888792 PCP - General Family Medicine 12/30/21 [place] [address] [place] [address] Assigned PCP 09/29/20 07/31/22 Jesú[place] [address] [place] [place] [address] Assigned Musculoskeletal Provider 10/20/20 04/17/22 Alfreda Ray PA-C [address] [place] [address] Referring Physician Family Medicine 12/31/21 Katrin Orellana PA-C [address] 981015 Physician Director Of Communications Dermatology 12/31/21 Shanna Vang PA-C [address] [place] [address] [phone] Assigned Cancer Care Provider 01/10/22 Fransisco Eddy MD [address] [place] [address] [phone] Assigned Rheumatology Provider 05/09/22 [place] [address] [place] [address] Assigned Pain Medication Provider 06/29/22 09/04/22 [place] [address] [address] [facility] [address] Assigned PCP 08/15/22 08/28/22 Katrin Orellana PA-C [address] [place] [address] 052415 Assigned Surgical Provider 08/15/22 02/10/24 Cristina Hsieh [facility] [address] [facility] [place]BETH HERNANDEZ [address] Pharmacist Pharmacist 09/07/22 Alfreda Ray PA-C [address] [place] [address] Assigned Pain Medication Provider 09/05/22 09/10/23 Alfreda Ray PA-C [address] [place] [address] Assigned PCP 08/29/22 Cristina Hsieh, [facility] [address] [address] Assigned MTM Pharmacist 09/26/22 Dakota Tatum MD [address] [place] [address] 898265 Cardiovascular Disease 03/25/23 Dakota Tatum MD [address] [place] [address] [phone] Assigned Heart and Vascular Provider 05/01/23 [place] [address] CE[address]AST[address]UM, [address] [address] Assigned Musculoskeletal Provider 04/12/24 documented as of this encounter
[2024-06-22 23:10] VITALS: BP 181/73; PULSE 75; RESP 16; TEMP 38; O2SAT 96; BMI 31.1
--- OUTSIDE RECORDS SUMMARY | 2024-06-22 23:10 | XMS_ITS | Encounter Summary ---
Author Organization [place] Address [address] [place] [address] Care Team Providers Care Any Commodity Buyer Name Role Phone Esperanza Gatica MD Primary Care Provider + Esperanza Gatica MD Unavailable + Esperanza Gatica MD Unavailable + Esperanza Gatica MD Unavailable + Espreanza Gatica MD Unavailable + Jesús Orourke MD Unavailable Alfreda Ray PA-C Primary Care Provider + Alfreda Ray PA-C Unavailable +2349 Katrin Orellana PA-C Unavailable +1-52 Shanna Vang PA-C Unavailable +[phone] Fransisco Eddy MD Unavailable +[phone] Esperanza Gatica MD Unavailable + Esperanza Gatica MD Unavailable + Katrin Orellana PA-C Unavailable +[phone] Cristina Hsieh [facility] Unavailable + 0660 Alfreda Ray PA-C Unavailable Alfreda Ray PA-C Unavailable +[phone] Cristina Hsieh [facility] Unavailable +[phone] Dakota Tatum MD Unavailable +[phone] Dakota Tatum MD Unavailable +[phone] Srinivas Marie DO Unavailable [phone] Reason for Visit * Reason Comments Medication Refill Encounter Details Date Type Department Care Team (Late st Contact Info) Description 11/02/[address], [address] [place] [address] [place] [address] [address] [place], [place] [id number] Medication Refill Social History Tobacco Use Types [...] Sex Assigned at Female 08/17/2018 7:56 AM ALGEBRAIST Legal Sex Female 4:24 AM ALGEBRAIST Gender Identity Female 08/17/2018 7:56 AM ALGEBRAIST Sexual Orientation Straight 08/17/2018 7: 56 AM ALGEBRAIST documented as of this encounter Miscellaneous Notes * Telephone Encounter - Essence Meyer RN - 11/02/2019 10:08 AM CDT Prescription approved per [facility], [facility] or [facility] refill protocol. Essence Rodney - Registered Nurse [facility] documented in this encounter Plan of Treatment Upcoming Encounters Date Type Department Care Team (Late st Contact Info) Description 09/07/2024 10:00 AM CDT Office Visit [facility] [address] [place] [address] [address] L[place] [phone] Fransisco Eddy MD [address] [place] [address] 03/29/2025 3:40 PM CDT Office Visit [address] [phone] Alfreda Ray PA-C [address] [place] [address] 759952 documented as of this encounter Visit Diagnoses Diagnosis Insomnia, unspecified type documented in this encounter Additional Health Concerns Infection Onset Date Last Indicated Resolved Time Rule Out COVID-19 05/08/2021 05/08/2021 05/09/2021 9:08 PM ALGEBRAIST Assessment Noted Time PHQ-9 Depression Total Score: 1 08/20/19 19 1:44 PM ALGEBRAIST documented as of this encounter Care Teams Any Commodity Buyer Relationship Specialty Start Date End Date Esperanza Gatica MD PCP - General Family Practice 10/13/11 12/29/21 Alfreda Ray PA-C [address] [place] [address] 493122 PCP - General Family Medicine 12/30/21 [place] [address] [place]ARC[place] [address] Assigned PCP 10/01/19 03/02/20 [place] [address] [place] [place] [address] Assigned PCP 03/03/20 05/25/20 [place] [address] [place] [address] Assigned PCP 05/26/20 09/28/20 [place] [address] [place] [address] Assigned PCP 09/29/20 07/31/22 Jesú[place] [address] [place], [place] 487[address] Assigned Musculoskeletal Provider 10/20/20 04/17/22 Alfreda Ray PA-C [address] [place] [address] [phone] Referring Physician Family Medicine 12/31/21 Katrin Orellana PA-C [address] [place] [address] [phone] Physician Director Of Assessing Dermatology 12/31/21 Shanna Vang PA-C [address] [phone] Assigned Cancer Care Provider 01/10/22 Fransisco Eddy MD [address] [place] [address] [phone] Assigned Rheumatology Provider 05/09/22 [place] [address] [place] [address] Assigned Pain Medication Provider 06/29/22 09/04/22 [place] [address] [place] [address] Assigned PCP 08/15/22 08/28/22 Katrin Orellana PA-C [address] [place] [address] 470525 Assigned Surgical Provider 08/15/22 02/10/24 Cristina Hsieh [facility] [address] [place] [address] LISBETH HERNANDEZ [address] Pharmacist Pharmacist 09/07/22 Alfreda Ray PA-C [address] [place] [address] [phone] Assigned Pain Medication Provider 09/05/22 09/10/23 Alfreda Ray PA-C [address] [place] [address] 789492 Assigned PCP 08/29/22 Cristina Hsieh [facility] [address] [place] [address] [phone] Assigned MTM Pharmacist 09/26/22 Dakota Tatum MD [address] [place] [address] [phone] Cardiovascular Disease 03/25/23 Dakota Tatum MD [address] [place] [address] Assigned Heart and Vascular Provider 05/01/23 [place] [address] CE[address] GASTELUM, [address] [address] Assigned Musculoskeletal Provider 04/12/24 documented as of this encounter
--- OUTSIDE RECORDS SUMMARY | 2024-06-22 23:10 | XMS_ITS | Encounter Summary ---
Author Organization [facility] Address [address] [place] [address] Care Team Providers Care Naphtha Washing System Operator Name Role Phone Esperanza Gatica MD Primary Care Provider + Esperanza Gatica MD Unavailable + Esperanza Gatica MD Unavailable + Esperanza Gatica MD Unavailable + Esperanza Gatica MD Unavailable + Esperanza Gatica MD Unavailable + Jesús Orourke MD Unavailable Alfreda Ray-C Primary Care Provider + Alfreda Ray-C Unavailable + [phone] Katrin OrellanaC Unavailable +[phone] Shanna Vang-C Unavailable +[phone] Fransisco Eddy MD Unavailable +[phone] Esperanza Gatica MD Unavailable + Esperanza Gatica MD Unavailable + Katrin OrellanaC Unavailable +[phone] Cristina Hsieh [facility] Unavailable +60 Alfreda Ray PA-C Unavailable +[phone] Alfreda Ray PA-C Unavailable +[phone] Cristina Hsieh [facility] Unavailable +[phone] Dakota Tatum MD Unavailable +[phone] Dakota Tatum MD Unavailable +[phone] Srinivas Marie DO Unavailable [phone] Reason for Visit * Reason Onset Date Comments Refill Request 08/01/2019 Encounter Details Date Type Department Care Team (Late st Contact Info) Description 08/01/2019 MyC Refill [address], [address] [place] [address] [place] [address] [place] [address] Refill Request Social History Tobacco [...] Sex Assigned at Female 08/17/2018 7:56 AM BIOINFORMATICS PROGRAMMER Legal Sex Female 4:24 AM BIOINFORMATICS PROGRAMMER Gender Identity Female 08/17/2018 7:56 AM BIOINFORMATICS PROGRAMMER Sexual Orientation Straight 08/17/2018 7: 56 AM BIOINFORMATICS PROGRAMMER documented as of this encounter Miscellaneous Notes * Telephone Encounter - Yuliet Barrera RN - 08/02/2019 7:20 PM CST Last Written Prescription Date: 06.02.19 #90 Restoril 08.01.2019 #90 Tramadol Last Fill Quantity: , # refills: Last office visit: 02/21/2019 with prescribing provider: En Future Office Visit: Next 5 appointments (look out 90 days) Sep 15, 2019 9:20 AM CDT PHYSICAL with Esperanza Gatica MD [facility], [address] [facility] [address] Requested Prescriptions Pending Prescriptions Disp Refills temazepam (RESTORIL) 7.5 MG capsule 90 capsule 0 Sig: Take 1 capsule (7.5 mg) by mouth At Bedtime There is no refill protocol information for this order traMADol (ULTRAM) 50 MG tablet 90 tablet 0 Sig: TAKE ONE TABLET BY MOUTH EVERY MORNING AND TAKE TWO TABLETS BY MOUTH IN THE EVENING FOR CHRONIC PAIN There is no refill protocol information for this order Routing refill request to provider for review/approval because: Drug not on the [facility] refill protocol NFORMATICS PROGRAMMER documented in this encounter Plan of Treatment Upcoming Encounters Date Type Department Care Team (Late st Contact Info) Description 09/07/2024 10:00 AM CDT Office Visit [facility] Specialty [address] [phone] Fransisco Eddy MD [address] [place] [address] 367355 03/29/2025 3:40 PM CDT Office Visit [address] [phone] Alfreda Ray PA-C [address] [place] [address] 472952 documented as of this encounter Visit Diagnoses Diagnosis Insomnia, unspecified type Primary osteoarthritis involving multiple joints documented in this encounter Additional Health Concerns Infection Onset Date Last Indicated Resolved Time Rule Out COVID-19 05/08/2021 05/08/2021 05/09/2021 9:08 PM BIOINFORMATICS PROGRAMMER Assessment Noted Time PHQ-9 Depression Total Score: 1 08/20/19 19 1:44 PM BIOINFORMATICS PROGRAMMER documented as of this encounter Care Teams Naphtha Washing System Operator Relationship Specialty Start Date End Date Esperanza Gatica MD PCP - General Family Practice 10/13/11 12/29/21 Alfreda Ray PA-C [address] [place] [address] PCP - General Family Medicine 12/30/21 [place] [address] [place] [address] Assigned PCP 12/05/17 09/30/19 [place] [address] [place] [address] Assigned PCP 10/01/19 03/02/20 [place] [address] [place] [address] Assigned PCP 03/03/20 05/25/20 [place] [address] [place] [address] Assigned PCP 05/26/20 09/28/20 [place] [address] [place] [address] Assigned PCP 09/29/20 07/31/22 [place] [address] [place] [address] Assigned Musculoskeletal Provider 10/20/20 04/17/22 Alfreda Ray PA-C 4151 [place] [address] Referring Physician Family Medicine 12/31/21 Katrin Orellana PA-C [address] [address] Physician Band Builder Dermatology 12/31/21 Shanna Vang PA-C [address] [address] Assigned Cancer Care Provider 01/10/22 Fransisco Eddy MD [address] [place] [address] 314755 Assigned Rheumatology Provider 05/09/22 [place] [address] [place] [address] Assigned Pain Medication Provider 06/29/22 09/04/22 [place] [address] [place] [address] Assigned PCP 08/15/22 08/28/22 Katrin Orellana PA-C [address] [place] [address] Assigned Surgical Provider 08/15/22 02/10/24 Cristina Hsieh [facility] [address] [facility] LISBETH HERNANDEZ [address] Pharmacist Pharmacist 09/07/22 Alfreda Ray PA-C [address] [place] [address] Assigned Pain Medication Provider 09/05/22 09/10/23 Alfreda Ray PA-C [address] [place] [address] Assigned PCP 08/29/22 Cristina Hsieh, [facility] [address] [place] [address] Assigned MTM Pharmacist 09/26/22 Dakota Tatum MD [address] [place] [address] Cardiovascular Disease 03/25/23 Dakota Tatum MD [address] [place] [address] Assigned Heart and Vascular Provider 05/01/23 [place] [address] [place] , [address] [address] Assigned Musculoskeletal Provider 04/12/24 documented as of this encounter
--- OUTSIDE RECORDS SUMMARY | 2024-06-22 23:10 | XMS_ITS | Encounter Summary ---
Author Organization [facility] Address [address] [place] [address] Care Team Providers Care Strategic Development Manager Name Role Phone Esperanza Gatica MD Primary Care Provider + Esperanza Gatica MD Unavailable + Esperanza Gatica MD Unavailable + Esperanza Gatica MD Unavailable + Esperanza Gatica MD Unavailable + Esperanza Gatica MD Unavailable + Jesús Orourke MD Unavailable Alfreda Ray-C Primary Care Provider + Alfreda Ray-C Unavailable + [phone] Katrin OrellanaC Unavailable +[phone] Shanna Vang-C Unavailable +[phone] Fransisco Eddy MD Unavailable +[phone] Esperanza Gatica MD Unavailable + Esperanza Gatica MD Unavailable + Katrin OrellanaC Unavailable +[phone] Cristina Hsieh [facility] Unavailable +60 Alfreda Ray PA-C Unavailable Alfreda Ray PA-C Unavailable Cristina Hsieh Martin [facility] Unavailable +[phone] Dakota Tatum MD Unavailable [phone] Dakota Tatum MD Unavailable +[phone] Srinivas Marie Unavailable [phone] Encounter Details Date Type Department Care Team (Late st Contact Info) Description 09/25/2019 MyC Medical Advice [address] [phone] Edel Corrigan [employer] STEWARD Social History Tobacco Use Types Packs/Day Years [...] Sex Assigned at Female 08/17/2018 7:56 AM TITLE CHECKER Legal Sex Female 4:24 AM TITLE CHECKER Gender Identity Female 08/17/2018 7:56 AM TITLE CHECKER Sexual Orientation Straight 08/17/2018 7: 56 AM TITLE CHECKER documented as of this encounter Plan of Treatment Upcoming Encounters Date Type Department Care Team (Late st Contact Info) Description 09/07/2024 10:00 AM CDT Office Visit [facility] [address] [phone] Fransisco Eddy MD [address] [place] [address] 03/29/2025 3:40 PM CDT Office Visit [address] [phone] Alfreda Ray PA-C [address] [place] [address] documented as of this encounter Visit Diagnoses Not on filedocumented in this encounter Additional Health Concerns Infection Onset Date Last Indicated Resolved Time Rule Out COVID-19 05/08/2021 05/08/2021 05/09/2021 9:08 PM TITLE CHECKER Assessment Noted Time PHQ-9 Depression Total Score: 1 08/20/19 19 1:44 PM TITLE CHECKER documented as of this encounter Care Teams Strategic Development Manager Relationship Specialty Start Date End Date Esperanza Gatica MD PCP - General Family Practice 10/13/11 12/29/21 Alfreda Ray PA-C [address] [place] [address] PCP - General Family Medicine 12/30/21 [place] [address] [place] GARCIA [address] Assigned PCP 12/05/17 09/30/19 [place] [address] [place] [address] Assigned PCP 10/01/19 03/02/20 [place] [address] [place]ARCIA [address] Assigned PCP 03/03/20 05/25/20 [place] [address] [place] [address] Assigned PCP 05/26/20 09/28/20 [place] [address] [place] [address] Assigned PCP 09/29/20 07/31/22 Jesú[place] [address] [place] [address] Assigned Musculoskeletal Provider 10/20/20 04/17/22 Alfreda Ray PA-C 4151 [place], [place] 722272 Referring Physician Family Medicine 12/31/21 Katrin Orellana PA-C [address] [place] [address] 98 [place], [place] 371165 Physician Candy Spreader Dermatology 12/31/21 Shanna Vang PA-C [address] 481674 Assigned Cancer Care Provider 01/10/22 Fransisco Eddy MD [address] [place] [address] 359555 Assigned Rheumatology Provider 05/09/22 [place] [address] [place]ARCIA [address] Assigned Pain Medication Provider 06/29/22 09/04/22 [place] [address] [place] [address] Assigned PCP 08/15/22 08/28/22 Katrin Orellana PA-C [address] [facility] 98 [place] [address] Assigned Surgical Provider 08/15/22 02/10/24 Cristina Hsieh [facility] [address] [facility] [place]BETH HERNANDEZ [address] Pharmacist Pharmacist 09/07/22 Alfreda Ray PA-C [address] [place] [address] 549642 Assigned Pain Medication Provider 09/05/22 09/10/23 Alfreda Ray PA-C [address] [place] [address] 023382 Assigned PCP 08/29/22 Cristina Hsieh, [facility] [address] [address] Assigned MTM Pharmacist 09/26/22 Dakota Tatum MD [address] [place] [address] Cardiovascular Disease 03/25/23 Dakota Tatum MD 6 [place] [address] Assigned Heart and Vascular Provider 05/01/23 [place] [address] [address], [facility] [address] [place] [address] Assigned Musculoskeletal Provider 04/12/24 documented as of this encounter
--- OUTSIDE RECORDS SUMMARY | 2024-06-22 23:10 | XMS_ITS | Encounter Summary ---
Author Organization [facility] Address [address] [place] [address] Care Team Providers Care Educational Manager Name Role Phone Esperanza Gatica MD Primary Care Provider + Esperanza Gatica MD Unavailable + Esperanza Gatica MD Unavailable + Esperanza Gatica MD Unavailable + Esperanza Gatica MD Unavailable + Esperanza Gatica MD Unavailable + Jesús Orourke MD Unavailable Alfreda Ray-C Primary Care Provider + Alfreda Ray-C Unavailable + [phone] Katrin OrellanaC Unavailable +[phone] Shanna Vang-C Unavailable +[phone] Fransisco Eddy MD Unavailable [phone] Esperanza Gatica MD Unavailable + Esperanza Gatica MD Unavailable + Katrin OrellanaC Unavailable +1-02 Cristina Hsieh [facility] Unavailable +60 Alfreda Ray PA-C Unavailable +[phone] Alfreda Ray PA-C Unavailable Cristina Hsieh Martin [facility] Unavailable +[phone] Dakota Tatum MD Unavailable +[phone] Dakota Tatum MD Unavailable [phone] Srinivas Marie Unavailable [phone] Encounter Details Date Type Department Care Team (Late st Contact Info) Description 08/01/2019 MyC Medical Advice [place] [address] [facility], [address] [place] [address] Chitra López Social History Tobacco Use Types Packs/Day Years [...] Sex Assigned at Female 08/17/2018 7:56 AM SECRETARY OFFICE CLERK Legal Sex Female 4:24 AM SECRETARY OFFICE CLERK Gender Identity Female 08/17/2018 7:56 AM SECRETARY OFFICE CLERK Sexual Orientation Straight 08/17/2018 7: 56 AM SECRETARY OFFICE CLERK documented as of this encounter Plan of Treatment Upcoming Encounters Date Type Department Care Team (Late st Contact Info) Description 09/07/2024 10:00 AM CDT Office Visit [facility] [address] [phone] Fransisco Eddy MD [address] [place] [address] 472545 03/29/2025 3:40 PM CDT Office Visit [address] [phone] Alfreda Ray PA-C [address] [place] [address] documented as of this encounter Visit Diagnoses Not on filedocumented in this encounter Additional Health Concerns Infection Onset Date Last Indicated Resolved Time Rule Out COVID-19 05/08/2021 05/08/2021 05/09/2021 9:08 PM SECRETARY OFFICE CLERK Assessment Noted Time PHQ-9 Depression Total Score: 1 08/20/19 19 1:44 PM SECRETARY OFFICE CLERK documented as of this encounter Care Teams Educational Manager Relationship Specialty Start Date End Date Esperanza Gatica MD PCP - General Family Practice 10/13/11 12/29/21 Alfreda Ray PA-C [address] [place] [address] PCP - General Family Medicine 12/30/21 [place] [address] [place] GARCIA [address] Assigned PCP 12/05/17 09/30/19 [place] [address] [place]ARC[place] [address] Assigned PCP 10/01/19 03/02/20 [place] [address] [place]ARCIA [address] Assigned PCP 03/03/20 05/25/20 [place] [address] [place] [address] Assigned PCP 05/26/20 09/28/20 [place] [address] [place]ARCIA [address] Assigned PCP 09/29/20 07/31/22 [place] [address] [address] Assigned Musculoskeletal Provider 10/20/20 04/17/22 Alfreda Ray PA-C 4151 [place], [place] 273632 Referring Physician Family Medicine 12/31/21 Katrin Orellana PA-C [address] [place] [address] 98 [place], [place] 305875 Physician Knowledge Engineer Dermatology 12/31/21 Shanna Vang PA-C [address] 278494 Assigned Cancer Care Provider 01/10/22 Fransisco Eddy MD [address] [place] [address] 017725 Assigned Rheumatology Provider 05/09/22 [place] [address] [address] [place] [address] Assigned Pain Medication Provider 06/29/22 09/04/22 [place] [address] [place]ARC[place] [address] Assigned PCP 08/15/22 08/28/22 Katrin Orellana PA-C 420 [facility] 98 [place] [address] Assigned Surgical Provider 08/15/22 02/10/24 Cristina Hsieh, [facility] 3[address] [facility] L[place]BETH HERNANDEZ [address] Pharmacist Pharmacist 09/07/22 Alfreda Ray PA-C [address] [place] [address] 563582 Assigned Pain Medication Provider 09/05/22 09/10/23 Alfreda Ray PA-C [address] [place] [address] 922212 Assigned PCP 08/29/22 Cristina Hsieh, [facility] [address] [address] Assigned MTM Pharmacist 09/26/22 Dakota Tatum MD [address] [place] [address] Cardiovascular Disease 03/25/23 Dakota Tatum MD 6 [place] [address] Assigned Heart and Vascular Provider 05/01/23 [place] [address] CELE GASTELUM, [facility] 300 [place] [address] Assigned Musculoskeletal Provider 04/12/24 documented as of this encounter
--- OUTSIDE RECORDS SUMMARY | 2024-06-22 23:10 | XMS_ITS | Encounter Summary ---
Author Organization [facility] Address [address] [place] [address] Care Team Providers Care Corporate Administrative Assistant Name Role Phone Esperanza Gatica MD Primary Care Provider + Esperanza Gatica MD Unavailable + Esperanza Gatica MD Unavailable + Jesús Orourke MD Unavailable Alfreda Ray-C Primary Care Provider + Alfreda Ray-C Unavailable +260 Katrin Orellana PA-C Unavailable +[phone] Shanna Vang PA-C Unavailable +[phone] Fransisco Eddy MD Unavailable +[phone] Esperanza Gatica MD Unavailable + Esperanza Gatica MD Unavailable + Katrin OrellanaC Unavailable +[phone] Cristina Hsieh [facility] Unavailable +[phone] Alfreda Ray PA-C Unavailable +[phone] Alfreda Ray PA-C Unavailable +260 Cristina Hsieh [facility] Unavailable +[phone] Dakota Tatum MD Unavailable +[phone] Dakota Tatum MD Unavailable + Cynthia, Srinivas Unavailable [phone] Encounter Details Date Type Department Care Team (Late st Contact Info) Description 07/04/2020 MyC Medical Advice [address] [phone] [place] [address] [place] [address] Social History Tobacco Use Types Packs/Day Years [...] Sex Assigned at Female 08/17/2018 7:56 AM SUGAR SAMPLER Legal Sex Female 4:24 AM SUGAR SAMPLER Gender Identity Female 08/17/2018 7:56 AM SUGAR SAMPLER Sexual Orientation Straight 08/17/2018 7: 56 AM SUGAR SAMPLER documented as of this encounter Plan of Treatment Upcoming Encounters Date Type Department Care Team (Late st Contact Info) Description 09/07/2024 10:00 AM CDT Office Visit [facility] [address] [phone] Fransisco Eddy MD [address] [place] [address] 048675 03/29/2025 3:40 PM CDT Office Visit [address] [phone] Alfreda Ray PA-C [address] [place] [address] [phone] documented as of this encounter Visit Diagnoses Not on filedocumented in this encounter Additional Health Concerns Infection Onset Date Last Indicated Resolved Time Rule Out COVID-19 05/08/2021 05/08/2021 05/09/2021 9:08 PM SUGAR SAMPLER Assessment Noted Time PHQ-9 Depression Total Score: 1 08/20/19 19 1:44 PM SUGAR SAMPLER documented as of this encounter Care Teams Corporate Administrative Assistant Relationship Specialty Start Date End Date Esperanza Gatica MD PCP - General Family Practice 10/13/11 12/29/21 Alfreda Ray PA-C [address] [place] [address] PCP - General Family Medicine 12/30/21 [place] [address] [place] [address] Assigned PCP 05/26/20 09/28/20 [place] [address] [place] [address] Assigned PCP 09/29/20 07/31/22 [place] [address] [place] [address] [address] Assigned Musculoskeletal Provider 10/20/20 04/17/22 Alfreda Ray PA-C [address] [place] [address] Referring Physician Family Medicine 12/31/21 Katrin Orellana PA-C [address] [place] [address] Physician Health And Fitness Instructor Dermatology 12/31/21 Shanna Vang PA-C [address] [place] [address] Assigned Cancer Care Provider 01/10/22 Fransisco Eddy MD [address] [place] [address] Assigned Rheumatology Provider 05/09/22 [place] [address] [place] [address] Assigned Pain Medication Provider 06/29/22 09/04/22 [place] [address] [place] [address] Assigned PCP 08/15/22 08/28/22 Katrin Orellana PA-C [address] [place] [address] Assigned Surgical Provider 08/15/22 02/10/24 Cristina Hsieh, [facility] [address] [place] [address] [place] [address] Pharmacist Pharmacist 09/07/22 Alfreda Ray PA-C [address] [place] [address] Assigned Pain Medication Provider 09/05/22 09/10/23 Alfreda Ray PA-C [address] [place] [address] Assigned PCP 08/29/22 Cristina Hsieh, [facility] [address] [address] Assigned MTM Pharmacist 09/26/22 Dakota Tatum MD [address] [place] [address] Cardiovascular Disease 03/25/23 Dakota Tatum MD [address] [place] [address] Assigned Heart and Vascular Provider 05/01/23 [place] [address] [address], [address] [address] Assigned Musculoskeletal Provider 04/12/24 documented as of this encounter
--- OUTSIDE RECORDS SUMMARY | 2024-06-22 23:10 | XMS_ITS | Encounter Summary ---
Author Organization [place] Address [address] [place] [address] Care Team Providers Care Director Of Hemophilia Name Role Phone Esperanza Gatica MD Primary Care Provider + Esperanza Gatica MD Unavailable + Esperanza Gatica MD Unavailable + Esperanza Gatica MD Unavailable + Esperanza Gatica MD Unavailable + Esperanza Gatica MD Unavailable + Jeúss Orourke MD Unavailable Alfreda Ray-C Primary Care Provider + Alfreda Ray-C Unavailable + [phone] Katrin OrellanaC Unavailable +[phone] Shanna Vang-C Unavailable +[phone] Fransisco Eddy MD Unavailable +[phone] Esperanza Gatica MD Unavailable + Esperanza Gatica MD Unavailable + Katrin OrellanaC Unavailable +[phone] Cristina Hsieh [facility] Unavailable +[phone] Alfreda Ray PA-C Unavailable Cory Alfreda Liu PA-C Unavailable +[phone] Cristina Hsieh Martin [facility] Unavailable +[phone] DeeptiDakota MD Unavailable +[phone] LaDakota guerra MD Unavailable +[phone] Srinivas Marie Unavailable +[phone] Encounter Details Date Type Department Care Team (Late st Contact Info) Description 07/27/2019 MyC Medical Advice [address], [address] [place] [address] [place] [address] [place] [address] Social History Tobacco Use Types [...] Sex Assigned at Female 08/17/2018 7:56 AM EM PHYSICIAN Legal Sex Female 4:24 AM EM PHYSICIAN Gender Identity Female 08/17/2018 7:56 AM EM PHYSICIAN Sexual Orientation Straight 08/17/2018 7: 56 AM EM PHYSICIAN documented as of this encounter Plan of Treatment Upcoming Encounters Date Type Department Care Team (Late st Contact Info) Description 09/07/2024 10:00 AM CDT Office Visit [facility] [address] [place] [address] Fransisco Eddy MD [address] [place] [address] 03/29/2025 3:40 PM CDT [facility] [address] [address] Alfreda Ray PA-C [address] [place] [address] [phone] documented as of this encounter Visit Diagnoses Not on filedocumented in this encounter Additional Health Concerns Infection Onset Date Last Indicated Resolved Time Rule Out COVID-19 05/08/2021 05/08/2021 05/09/2021 9:08 PM EM PHYSICIAN Assessment Noted Time PHQ-9 Depression Total Score: 1 08/20/19 19 1:44 PM EM PHYSICIAN documented as of this encounter Care Teams Director Of Hemophilia Relationship Specialty Start Date End Date Esperanza Gatica MD PCP - General Family Practice 10/13/11 12/29/21 Alfreda Ray PA-C [address] [place] [address] PCP - General Family Medicine 12/30/21 [place] [address] [address]ARCIA [address] Assigned PCP 12/05/17 09/30/19 [place] [address] [address] [address] Assigned PCP 10/01/19 03/02/20 [place] [address] [address]IA [address] Assigned PCP 03/03/20 05/25/20 [place] [address] [address]IA [address] Assigned PCP 05/26/20 09/28/20 [place] [address] [place] [address] Assigned PCP 09/29/20 07/31/22 Jesú[place] [address] [place] [address] [address] Assigned Musculoskeletal Provider 10/20/20 04/17/22 Alfreda Ray PA-C [address] [place] [address] Referring Physician Family Medicine 12/31/21 Katrin Orellana PA-C [address] [place] [address] Physician Bilingual Social Worker Dermatology 12/31/21 Shanna Vang PA-C [address] [address] Assigned Cancer Care Provider 01/10/22 Fransisco Eddy MD [address] [place] [address] Assigned Rheumatology Provider 05/09/22 [place] [address] [place] [address] Assigned Pain Medication Provider 06/29/22 09/04/22 [place] [address] [place] [address] Assigned PCP 08/15/22 08/28/22 Katrin Orellana PA-C [address] [place] [address] 98 [place] [address] Assigned Surgical Provider 08/15/22 02/10/24 Cristina Hsieh [facility] [address] [place] [address] Pharmacist Pharmacist 09/07/22 Alfreda Ray PA-C [address] [place] [address] 845282 Assigned Pain Medication Provider 09/05/22 09/10/23 Alfreda Ray PA-C [address] [place] [address] 548162 Assigned PCP 08/29/22 Cristina Hsieh [facility] [address] [place] [address] Assigned MTM Pharmacist 09/26/22 Dakota Tatum MD [address] [place] [address]9834 Cardiovascular Disease 03/25/23 Dakota Tatum MD [address] [place] [address] 15[address] Assigned Heart and Vascular Provider 05/01/23 [place] [address] [facility], [address] [address] Assigned Musculoskeletal Provider 04/12/24 documented as of this encounter
--- OUTSIDE RECORDS SUMMARY | 2024-06-22 23:11 | XMS_ITS | Encounter Summary ---
Author Organization [facility] Address [address] [place] [address] Care Team Providers Care Shuttle Hand Name Role Phone Esperanza Gatica MD Primary Care Provider + Esperanza Gatica MD Unavailable + Esperanza Gatica MD Unavailable + Esperanza Gatica MD Unavailable + Esperanza Gatica MD Unavailable + Esperanza Gatica MD Unavailable + Jesús Orourke MD Unavailable Alfreda Ray-C Primary Care Provider + Alfreda Ray-C Unavailable + [phone] Katrin OrellanaC Unavailable +[phone] Shanna Vang-C Unavailable +[phone] Fransisco Eddy MD Unavailable [phone] Esperanza Gatica MD Unavailable + Esperanza Gatica MD Unavailable + Katrin OrellanaC Unavailable +[phone] Cristina Hsieh [facility] Unavailable +60 Alfreda Ray PA-C Unavailable [phone] Cory Alfreda Liu PA-C Unavailable Cristina Hsieh Martin [facility] Unavailable +[phone] DeeptiDakota MD Unavailable [phone] LaDakota guerra MD Unavailable [phone] Srinivas Marie Unavailable [phone] Encounter Details Date Type Department Care Team (Late st Contact Info) Description 07/03/2019 MyC Medical Advice [address], [address] [place] [address] [place] [address] [place] [address] Social History Tobacco Use Types [...] Sex Assigned at Female 08/17/2018 7:56 AM TAWER Legal Sex Female 4:24 AM TAWER Gender Identity Female 08/17/2018 7:56 AM TAWER Sexual Orientation Straight 08/17/2018 7: 56 AM TAWER documented as of this encounter Plan of Treatment Upcoming Encounters Date Type Department Care Team (Late st Contact Info) Description 09/07/2024 10:00 AM CDT Office Visit [facility] [address] [place] [address] Fransisco Eddy MD [address] [place] [address] 03/29/2025 3:40 PM CDT [facility] [address] [address] Alfreda Ray PA-C [address] [place] [address] 529402 documented as of this encounter Visit Diagnoses Not on filedocumented in this encounter Additional Health Concerns Infection Onset Date Last Indicated Resolved Time Rule Out COVID-19 05/08/2021 05/08/2021 05/09/2021 9:08 PM TAWER Assessment Noted Time PHQ-9 Depression Total Score: 1 08/20/19 19 1:44 PM TAWER documented as of this encounter Care Teams Shuttle Hand Relationship Specialty Start Date End Date Esperanza Gatica MD PCP - General Family Practice 10/13/11 12/29/21 Alfreda Ray PA-C [address] [place] [address] PCP - General Family Medicine 12/30/21 [place] [address] [address] GARCIA [address] Assigned PCP 12/05/17 09/30/19 [place] [address] [address] [address] Assigned PCP 10/01/19 03/02/20 [place] [address] [address]ARC[address] [address] Assigned PCP 03/03/20 05/25/20 [place] [address] [address]IA [address] Assigned PCP 05/26/20 09/28/20 [place] [address] [place] [address] Assigned PCP 09/29/20 07/31/22 [place] [address] [place] [address] [address] Assigned Musculoskeletal Provider 10/20/20 04/17/22 Alfreda Ray PA-C [address] [place] [address] Referring Physician Family Medicine 12/31/21 Katrin Orellana PA-C [address] [place] [address] Physician Cpa Tax Dermatology 12/31/21 Shanna Vang PA-C [address] [address] Assigned Cancer Care Provider 01/10/22 Fransisco Eddy MD [address] [place] [address] Assigned Rheumatology Provider 05/09/22 [place] [address] [place] [address] Assigned Pain Medication Provider 06/29/22 09/04/22 [place] [address] [place] [address] Assigned PCP 08/15/22 08/28/22 Katrin Orellana PA-C [address] [place] [address] 98 [place] [address] Assigned Surgical Provider 08/15/22 02/10/24 Cristina Hsieh [facility] [address] [place] [address] Pharmacist Pharmacist 09/07/22 Alfreda Ray PA-C [address] [place] [address] 455252 Assigned Pain Medication Provider 09/05/22 09/10/23 Alfreda Ray PA-C [address] [place] [address] 882642 Assigned PCP 08/29/22 Cristina Hsieh [facility] [address] [place] [address] Assigned MTM Pharmacist 09/26/22 Dakota Tatum MD [address] [place] [address]458 Cardiovascular Disease 03/25/23 Dakota Tatum MD [address] [place] [address] Assigned Heart and Vascular Provider 05/01/23 [place] [address] [facility], [address] [address] Assigned Musculoskeletal Provider 04/12/24 documented as of this encounter
--- OUTSIDE RECORDS SUMMARY | 2024-06-22 23:11 | XMS_ITS | Encounter Summary ---
Author Organization [facility] Address [address] [place] [address] Care Team Providers Care Orchid Worker Name Role Phone Esperanza Gatica MD Primary Care Provider + Esperanza Gatica MD Unavailable + Esperanza Gatica MD Unavailable + Esperanza Gatica MD Unavailable + Esperanza Gatica MD Unavailable + Esperanza Gatica MD Unavailable + Jesús Orourke MD Unavailable Alfreda Ray-C Primary Care Provider + Alfreda Ray-C Unavailable + [phone] Katrin OrellanaC Unavailable +[phone] Shanna Vang-C Unavailable +[phone] Fransisco Eddy MD Unavailable [phone] Esperanza Gatica MD Unavailable + Esperanza Gatica MD Unavailable + Katrin OrellanaC Unavailable +[phone] Cristina Hsieh [facility] Unavailable +34 Alfreda Ray PA-C Unavailable Cory Alfreda Liu PA-C Unavailable [phone] Cristina Hsieh Martin [facility] Unavailable +[phone] DeeptiDakota MD Unavailable [phone] LaDakota guerra MD Unavailable [phone] Srinivas Marie Unavailable [phone] Encounter Details Date Type Department Care Team (Late st Contact Info) Description 07/27/2019 MyC Medical Advice [address], [address] [place] [address] [place] [address] [place] [address] Social History Tobacco Use Types [...] Sex Assigned at Female 08/17/2018 7:56 AM CAVITY PUMP OPERATOR Legal Sex Female 4:24 AM CAVITY PUMP OPERATOR Gender Identity Female 08/17/2018 7:56 AM CAVITY PUMP OPERATOR Sexual Orientation Straight 08/17/2018 7: 56 AM CAVITY PUMP OPERATOR documented as of this encounter Plan of Treatment Upcoming Encounters Date Type Department Care Team (Late st Contact Info) Description 09/07/2024 10:00 AM CDT Office Visit [facility] [address] [place] [address] Fransisco Eddy MD [address] [place] [address] 03/29/2025 3:40 PM CDT [facility] [address] [address] Alfreda Ray PA-C [address] [place] [address] [phone] documented as of this encounter Visit Diagnoses Not on filedocumented in this encounter Additional Health Concerns Infection Onset Date Last Indicated Resolved Time Rule Out COVID-19 05/08/2021 05/08/2021 05/09/2021 9:08 PM CAVITY PUMP OPERATOR Assessment Noted Time PHQ-9 Depression Total Score: 1 08/20/19 19 1:44 PM CAVITY PUMP OPERATOR documented as of this encounter Care Teams Orchid Worker Relationship Specialty Start Date End Date Esperanza Gatica MD PCP - General Family Practice 10/13/11 12/29/21 Alfreda Ray PA-C [address] [place] [address] PCP - General Family Medicine 12/30/21 [place] [address] [address] GARCIA [address] Assigned PCP 12/05/17 09/30/19 [place] [address] [address]ARCIA [address] Assigned PCP 10/01/19 03/02/20 [place] [address] [address]ARCIA [address] Assigned PCP 03/03/20 05/25/20 [place] [address] [address] [address] Assigned PCP 05/26/20 09/28/20 [place] [address] [place] [address] Assigned PCP 09/29/20 07/31/22 Jesú[place] [address] [place] [address] [address] Assigned Musculoskeletal Provider 10/20/20 04/17/22 Alfreda Ray PA-C [address] [place] [address] Referring Physician Family Medicine 12/31/21 Katrin Orellana PA-C [address] [place] [address] Physician Associate Professor Of Management Dermatology 12/31/21 Shanna Vang PA-C [address] [address] Assigned Cancer Care Provider 01/10/22 Fransisco Eddy MD [address] [place] [address] Assigned Rheumatology Provider 05/09/22 [place] [address] [place] [address] Assigned Pain Medication Provider 06/29/22 09/04/22 [place] [address] [place] [address] Assigned PCP 08/15/22 08/28/22 Katrin Orellana PA-C [address] [place] [address] 98 [place] [address] Assigned Surgical Provider 08/15/22 02/10/24 Cristina Hsieh [facility] [address] [facility] [place] [address] Pharmacist Pharmacist 09/07/22 Alfreda Ray PA-C [address] [place] [address] 156452 Assigned Pain Medication Provider 09/05/22 09/10/23 Alfreda Ray PA-C [address] [place] [address] 320342 Assigned PCP 08/29/22 Cristina Hsieh [facility] [address] [place] [address] Assigned MTM Pharmacist 09/26/22 Dakota Tatum MD [address] [place] [address] Cardiovascular Disease 03/25/23 Dakota Tatum MD [address] [place] [address] Assigned Heart and Vascular Provider 05/01/23 [place] [address] [facility], [address] [address] Assigned Musculoskeletal Provider 04/12/24 documented as of this encounter
--- OUTSIDE RECORDS SUMMARY | 2024-06-22 23:11 | XMS_ITS | Encounter Summary ---
Author Organization [facility] Address [address] [place] [address] Care Team Providers Care Routing Machine Operator Name Role Phone Kelly Haley MD Primary Care Provider + Kelly Haley MD Unavailable + Kelly Haley MD Unavailable + Kelly Haley MD Unavailable + Kelly Haley MD Unavailable + Kelly Haley MD Unavailable + Jesús Orourke MD Unavailable Alfreda Ray-C Primary Care Provider + Alfreda Ray-C Unavailable + [phone] Katrin OrellanaC Unavailable +[phone] Shanna Vang-C Unavailable +[phone] Fransisco Eddy MD Unavailable [phone] Kelly Haley MD Unavailable + Kelly Haley MD Unavailable + Katrin OrellanaC Unavailable +[phone] Cristina Hsieh [facility] Unavailable +60 Ray, Alfreda Liu PA-C Unavailable +[phone] Cory Alfreda Liu PA-C Unavailable +[phone] Cristina Hsieh [facility] Unavailable +[phone] Dakota Tatum MD Unavailable +[phone] Dakota Tatum MD Unavailable [phone] Srinivas Marie DO Unavailable Reason for Visit * Reason Onset Date Comments Medication Refill 05/01/2019 traMADol (ULTR AM) 50 MG tablet Encounter Details Date Type Department Care Team (Late st Contact Info) Description 04/30/[address], [address] [place] [address] [place] [address] [place] [address] Medication Refill (traMADol (ULTRAM) 50 MG tablet) Social History Tobacco Use Types [...] Sex Assigned at Female 08/17/2018 7:56 AM SPECTROGRAPHER Legal Sex Female 4:24 AM SPECTROGRAPHER Gender Identity Female 08/17/2018 7:56 AM SPECTROGRAPHER Sexual Orientation Straight 08/17/2018 7: 56 AM SPECTROGRAPHER documented as of this encounter Miscellaneous Notes * Telephone Encounter - Leigha Rinaldi RN - 05/02/2019 8:40 AM CST Images from the original note were not included. CURVE SAW OPERATOR checked 05/02/2019: Leigha Rinaldi RN TROGRAPHER * Telephone Encounter - Diya Stone - 05/01/2019 8:56 AM CST Controlled Substance Refill Request for traMADol (ULTRAM) 50 MG tablet Problem List Complete: Yes Overview Addendum 03/16/2018 11:31 AM by Yuliet Barrera RN Patient is followed by KELLY [facility]ALEY for ongoing prescription of pain medication. All refills should be approved by this provider, or covering partner. ?? Medication(s): HYDROcodone-acetaminophen (NORCO) 5-325 MG per tablet #90 traMADol (ULTRAM) 50 MG tablet #90 temazepam (RESTORIL) 7.5 MG capsule #30 Maximum quantity per month: 30 or 90 per 3 months Clinic visit frequency required: Q 3 months ?? Controlled substance agreement on file: Yes Date(s): 03/08/2015 ?? Pain Clinic evaluation in the past: No ?? DIRE Total Score(s): No flowsheet data found. ?? Last [facility] website verification: Done 03.16.18 Last Written Prescription Date: 04/05/19 Last Fill Quantity: 90, # refills: 0 THE MOST RECENT OFFICE VISIT MUST BE WITHIN THE PAST 3 MONTHS. AT LEAST ONE FACE TO FACE VISIT MUSTOCCUR EVERY 6 MONTHS. ADDITIONAL VISITS CAN BE VIRTUAL. (THIS STATEMENT SHOULD BE DELETED.) Last Office Visit with [facility] primary care provider: 02/21/2019 Future Office visit: Controlled substance agreement: Encounter-Level CSA - 12/06/2014: Controlled Substance Agreement - Scan on 03/18/2015 10:41 AM: CONTROLLED SUBSTANCE AGREEMENT 03-08-15 Patient-Level CSA: There are no patient-level csa. Last Urine Drug Screen: No results found for: CDAUT, No results found for: COMDAT, No results foundfor: THC13, PCP13, COC13, MAMP13, OPI13, AMP13, BZO13, TCA13, MTD13, BAR13, OXY13, PPX13, BUP13 Processing: Fax Rx to [facility] pharmacy [email or web address] CURVE SAW OPERATOR checked in past 3 months? No, route to RN 06/17/18 TROGRAPHER documented in this encounter Plan of Treatment Upcoming Encounters Date Type Department Care Team (Late st Contact Info) Description 09/07/2024 10:00 AM CDT Office Visit [facility] [address] [place] [phone] Fransisco Eddy MD [address] [place] [address] 03/29/2025 3:40 PM CDT Office Visit [address] [phone] Alfreda Ray PA-C [address] [place] [address] [phone] documented as of this encounter Visit Diagnoses Diagnosis Primary osteoarthritis involving multiple joints documented in this encounter Additional Health Concerns Infection Onset Date Last Indicated Resolved Time Rule Out COVID-19 05/08/2021 05/08/2021 05/09/2021 9:08 PM SPECTROGRAPHER Assessment Noted Time PHQ-9 Depression Total Score: 1 08/20/19 19 1:44 PM SPECTROGRAPHER documented as of this encounter Care Teams Routing Machine Operator Relationship Specialty Start Date End Date Kelly Haley MD PCP - General Family Practice 10/13/11 12/29/21 Alfreda Ray PA-C [address] [place] [address] 565372 PCP - General Family Medicine 12/30/21 [place] [address] [address]ARCIA [address] Assigned PCP 12/05/17 09/30/19 [place] [address] [address] [address] Assigned PCP 10/01/19 03/02/20 [place] [address] [place] [address] Assigned PCP 03/03/20 05/25/20 [place] [address] [place] [address] Assigned PCP 05/26/20 09/28/20 [place] [address] [place] [address] Assigned PCP 09/29/20 07/31/22 Jesú[place] [address] [place] [address] [address] Assigned Musculoskeletal Provider 10/20/20 04/17/22 Alfreda Ray PA-C [address] [place] [address] [phone] Referring Physician Family Medicine 12/31/21 Katrin Orellana PA-C [address] [place] [address] 429285 Physician Stuffer Dermatology 12/31/21 Shanna Vang PA-C [address] [place] [address] 593954 Assigned Cancer Care Provider 01/10/22 Fransisco Eddy MD [address] [place] [address] [phone] Assigned Rheumatology Provider 05/09/22 [place] [address] [address] [place] [address] Assigned Pain Medication Provider 06/29/22 09/04/22 [place] [address] [place] [address] Assigned PCP 08/15/22 08/28/22 Katrin Orellana PA-C [address] [place] [address] Assigned Surgical Provider 08/15/22 02/10/24 Cristina Hsieh [facility] [address] [place] [address] LISBETH HERNANDEZ [address] Pharmacist Pharmacist 09/07/22 Alfreda Ray PA-C [address] [place] [address] 512802 Assigned Pain Medication Provider 09/05/22 09/10/23 Alfreda Ray PA-C [address] [place] [address] Assigned PCP 08/29/22 Cristina Hsieh [facility] [address] [phone] Assigned MTM Pharmacist 09/26/22 Dakota Tatum MD [address] [place] [address] Cardiovascular Disease 03/25/23 Dakota Tatum MD [address] [place], [place] 132075 Assigned Heart and Vascular Provider 05/01/23 [place] [address] [address], [address] [address] Assigned Musculoskeletal Provider 04/12/24 documented as of this encounter
--- OUTSIDE RECORDS SUMMARY | 2024-06-22 23:11 | XMS_ITS | Encounter Summary ---
Author Organization [place] Address [address] [place] [address] Care Team Providers Care Magazine Designer Name Role Phone Esperanza Gatica MD Primary Care Provider + Esperanza Gatica MD Unavailable + Esperanza Gatica MD Unavailable + Esperanza Gatica MD Unavailable + Esperanza Gatcia MD Unavailable + Esperanza Gatica MD Unavailable + Jesús Orourke MD Unavailable Alfreda Ray-C Primary Care Provider + Alfreda Ray-C Unavailable + [phone] Katrin OrellanaC Unavailable +[phone] Shanna Vang-C Unavailable +[phone] Fransisco Eddy MD Unavailable +[phone] Esperanza Gatica MD Unavailable + Esperanza Gatica MD Unavailable + Katrin OrellanaC Unavailable +[phone] Cristina Hsieh [facility] Unavailable +60 Alfreda Ray PA-C Unavailable +[phone] Alfreda Ray PA-C Unavailable +[phone] MelissaCristina shields Martin [facility] Unavailable +[phone] LaDakota guerra MD Unavailable +[phone] LaDakota guerra MD Unavailable +[phone] Srinivas Marie DO Unavailable [phone] Encounter Details Date Type Department Care Team (Late st Contact Info) Description 07/26/2019 MyC Medical Advice [address], [address] [place] [address] [place] [address] [place] [address] Social History Tobacco Use Types [...] Sex Assigned at Female 08/17/2018 7:56 AM TIRE TECHNICIAN Legal Sex Female 4:24 AM TIRE TECHNICIAN Gender Identity Female 08/17/2018 7:56 AM TIRE TECHNICIAN Sexual Orientation Straight 08/17/2018 7: 56 AM TIRE TECHNICIAN documented as of this encounter Miscellaneous Notes * Telephone Encounter - Claudia Stoll RN - 07/26/2019 1:20 PM TIRE TECHNICIAN temazepam (RESTORIL) 7.5 MG capsule 90 capsule 0 06/02/2019 No Sig - Route: Take 1 capsule (7.5 mg) by mouth At Bedtime - Oral Sent to pharmacy as: temazepam (RESTORIL) 7.5 MG capsule Class: E-Prescribe Order: [id number] E-Prescribing Status: Receipt confirmed by pharmacy (06/02/2019 ??3:54 PM TIRE TECHNICIAN) Claudia Barsness, RN Flex TECHNICIAN documented in this encounter Plan of Treatment Upcoming Encounters Date Type Department Care Team (Late st Contact Info) Description 09/07/2024 10:00 AM CDT Office Visit [facility] [address] [place] [phone] Fransisco Eddy MD [address] [place] [address] 03/29/2025 3:40 PM CDT Office Visit [address] [phone] Alfreda Rya PA-C [address] [place] [address] documented as of this encounter Visit Diagnoses Not on filedocumented in this encounter Additional Health Concerns Infection Onset Date Last Indicated Resolved Time Rule Out COVID-19 05/08/2021 05/08/2021 05/09/2021 9:08 PM TIRE TECHNICIAN Assessment Noted Time PHQ-9 Depression Total Score: 1 08/20/19 19 1:44 PM TIRE TECHNICIAN documented as of this encounter Care Teams Magazine Designer Relationship Specialty Start Date End Date Esperanza Gatica MD PCP - General Family Practice 10/13/11 12/29/21 Alfreda Ray PA-C [address] [place] [address] 144882 PCP - General Family Medicine 12/30/21 [place] [address] [place] [address] Assigned PCP 12/05/17 09/30/19 [place] [address] [address] [place]ISBETH GAFFNEY [address] Assigned PCP 10/01/19 03/02/20 [place] [address] [place] [address] Assigned PCP 03/03/20 05/25/20 [place] [address] [address] GARCIA [address] Assigned PCP 05/26/20 09/28/20 [place] [address] [place] [address] Assigned PCP 09/29/20 07/31/22 [place] [address] [place], [place] 791207 Assigned Musculoskeletal Provider 10/20/20 04/17/22 Alfreda Ray PA-C [address] [place] [address] [phone] Referring Physician Family Medicine 12/31/21 Katrni Orellana PA-C [address] [place] [address] 304285 Physician Gritting Machine Operator Dermatology 12/31/21 Shanna Vang PA-C [facility] [address] 106954 Assigned Cancer Care Provider 01/10/22 Fransisco Eddy MD [address] [place] [address] Assigned Rheumatology Provider 05/09/22 [place] [address] [place] [address] Assigned Pain Medication Provider 06/29/22 09/04/22 [place] [address] [place] [address] Assigned PCP 08/15/22 08/28/22 Katrin Orellana PA-C [address] [place] [address] 90957 Assigned Surgical Provider 08/15/22 02/10/24 Cristina Hsieh [facility] [address] [place] [address] [place] [address] Pharmacist Pharmacist 09/07/22 Alfreda Ray PA-C [address] [place] [address]98 Assigned Pain Medication Provider 09/05/22 09/10/23 Alfreda Ray PA-C [address] [place] [address] 13066 Assigned PCP 08/29/22 Cristina Hsieh [facility] [address] [id number] Assigned MTM Pharmacist 09/26/22 Dakota Tatum MD [address] [place] [address] 200935 Cardiovascular Disease 03/25/23 Dakota Tatum MD [address] [place] [address] 299615 Assigned Heart and Vascular Provider 05/01/23 [place] [address] [address], [address] [address] Assigned Musculoskeletal Provider 04/12/24 documented as of this encounter
--- OUTSIDE RECORDS SUMMARY | 2024-06-22 23:12 | XMS_ITS | Encounter Summary ---
Author Organization [place] Address [address] [place] [address] Care Team Providers Care Account Executive Healthcare Name Role Phone Esperanza Gatica MD Primary Care Provider + Esperanza Gatica MD Unavailable + Esperanza Gatica MD Unavailable + Esperanza Gatica MD Unavailable + Esperanza Gatica MD Unavailable + Esperanza Gatica MD Unavailable + Jesús Orourke MD Unavailable Alfreda Ray-C Primary Care Provider + Alfreda Ray-C Unavailable + [phone] Katrin OrellanaC Unavailable +[phone] Shanna Vang-C Unavailable +[phone] Fransisco Eddy MD Unavailable [phone] Esperanza Gatica MD Unavailable + Esperanza Gatica MD Unavailable + Katrin OrellanaC Unavailable +[phone] Cristina Hsieh [facility] Unavailable +60 Alfreda Ray PA-C Unavailable +[phone] Alfreda Ray PA-C Unavailable [phone] Cristina Hsieh [facility] Unavailable + [phone] DeeptiDakota MD Unavailable + [phone] LaDakota guerra MD Unavailable + [phone] Srinivas Marie DO Unavailable [phone] Reason for Referral * Consultation (Routine) - Closed Specialty Diagnoses / Procedures Referred By Contmarcus t Referred To Contact Diagnoses Dysfunction of Eustachian tube, unspecified laterality Esperanza Gatica MD Phone: tel: fax: [facility] [address] [place] [address], [address] [place] [address] Phone: tel: Referral ID Status Reason Start Date Expiration Date Visits Re quested Visits Authorized [id number] Closed 04/13/2019 04/12/2020 1 1 Comments Your provider has referred you to: N: [facility] [place] [email or web address] Please be aware that coverage of these services is subject to the terms and limitations of your health insurance plan. Call member services at your health plan with any benefit or coverage questions. Please bring the following with you to your appointment: (1) Any X-Rays, CTs or MRIs which have been performed. Contact the facility where they were done to arrange for crop picker prior to your scheduled appointment. (2) List of current medications (3) This referral request (4) Any documents/labs given to you for this referral Reason for Visit * Reason Onset Date Comments Referral 04/13/2019 ENT Encounter Details Date Type Department Care Team (Late st Contact Info) Description 04/13/2019 [facility] [address] [place] [address], [address] [place] [address] [place] [address] [place], [place] [phone] Referral (ENT) Social History Tobacco Use Types Packs/Day Years [...] Sex Assigned at Female 08/17/2018 7:56 AM NUTRITION FACULTY MEMBER Legal Sex Female 4:24 AM NUTRITION FACULTY MEMBER Gender Identity Female 08/17/2018 7:56 AM NUTRITION FACULTY MEMBER Sexual Orientation Straight 08/17/2018 7: 56 AM NUTRITION FACULTY MEMBER documented as of this encounter Miscellaneous Notes * Telephone Encounter - Esperanza Gatica MD - 04/13/2019 1:39 PM CDT I can refer her to the [facility] or choose a ENT in the network, but not in [place]. I placed the a referral to the local ent for now. Let me know if she wants to change documented in this encounter Plan of Treatment Upcoming Encounters Date Type Department Care Team (Late st Contact Info) Description 09/07/2024 10:00 AM CDT Office Visit [facility] [address] [place] [phone] Fransisco Eddy MD [address] [place] [address] 683555 03/29/2025 3:40 PM CDT Office Visit [address] [phone] Alfreda Ray PA-C [address] [place] [address] Scheduled Referrals Name Type Priority Associated Diagnoses Orde r Schedule OTOLARYNGOLOGY REFERRAL Referral Routine Dysfunction of Eustachian tube, unspecified laterality Ordered: 04/13/2019 documented as of this encounter Visit Diagnoses Diagnosis Dysfunction of Eustachian tube, unspecified laterality- Primary documented in this encounter Additional Health Concerns Infection Onset Date Last Indicated Resolved Time Rule Out COVID-19 05/08/2021 05/08/2021 05/09/2021 9:08 PM NUTRITION FACULTY MEMBER Assessment Noted Time PHQ-9 Depression Total Score: 1 08/20/19 19 1:44 PM NUTRITION FACULTY MEMBER documented as of this encounter Care Teams Account Executive Healthcare Relationship Specialty Start Date End Date Esperanza Gatica MD PCP - General Family Practice 10/13/11 12/29/21 Alfreda Ray PA-C [address] [place] [address] PCP - General Family Medicine 12/30/21 [place] [address] LISB[address] GARCIA [address] Assigned PCP 12/05/17 09/30/19 [place] [address] [address]ARCIA [address] Assigned PCP 10/01/19 03/02/20 [place] [address] [address] GARCIA [address] Assigned PCP 03/03/20 05/25/20 [place] [address] [address] [place] [address] Assigned PCP 05/26/20 09/28/20 [place] [address] [place] [address] Assigned PCP 09/29/20 07/31/22 [place] [address] [employer] [facility] [place] [address] Assigned Musculoskeletal Provider 10/20/20 04/17/22 Alfreda Ray PA-C [address] [place] [address] 346642 Referring Physician Family Medicine 12/31/21 Katrin Orellana PA-C [address] [place] [address] [address] [place] [place], [place] 540535 Physician Roof Foreman Dermatology 12/31/21 Shanna Vang PA-C [address] [place] [address] 696264 Assigned Cancer Care Provider 01/10/22 Fransisco Eddy MD [address] [place] [address] 052155 Assigned Rheumatology Provider 05/09/22 [place] [address] [place] [address] Assigned Pain Medication Provider 06/29/22 09/04/22 [place] [address] [place] [address] Assigned PCP 08/15/22 08/28/22 Katrin Orellana PA-C [address] [place] [address] 069165 Assigned Surgical Provider 08/15/22 02/10/24 Cristina Hsieh [facility] [address] [facility] LISBETH [place]NANDEZ [address] Pharmacist Pharmacist 09/07/22 Alfreda Ray PA-C [address] [place] [address] 380292 Assigned Pain Medication Provider 09/05/22 09/10/23 Alfreda Ray PA-C [address] [place] [address] 731882 Assigned PCP 08/29/22 Cristina Hsieh [facility] [address] [address] Assigned MTM Pharmacist 09/26/22 Dakota Tatum MD [address] [place] [address] 307505 Cardiovascular Disease 03/25/23 Dakota Tatum MD [address] [place] [address] Assigned Heart and Vascular Provider 05/01/23 [place] [address] [address], [address] [address] Assigned Musculoskeletal Provider 04/12/24 documented as of this encounter
--- OUTSIDE RECORDS SUMMARY | 2024-06-22 23:12 | XMS_ITS | Encounter Summary ---
Author Organization [place] Address [address] [place] [address] Care Team Providers Care Instructor Robotics Name Role Phone Esperanza Gatica MD Primary Care Provider + Esperanza Gatica MD Unavailable + Esperanza Gatica MD Unavailable + Esperanza Gatica MD Unavailable + Esperanza Gatica MD Unavailable + Esperanza Gatica MD Unavailable + Jesús Orourke MD Unavailable Alfreda Ray-C Primary Care Provider + Alfreda Ray-C Unavailable + [phone] Katrin OrellanaC Unavailable +[phone] Shanna Vang-C Unavailable +[phone] Fransisco Eddy MD Unavailable [phone] Esperanza Gatica MD Unavailable + Esperanza Gatica MD Unavailable + Katrin OrellanaC Unavailable +[phone] Cristina Hsieh [facility] Unavailable +60 Alfreda Ray PA-C Unavailable +[phone] Alfreda Ray PA-C Unavailable +[phone] Cristina Hsieh Martin [facility] Unavailable +[phone] LaDakota guerra MD Unavailable +[phone] LaDakota guerra MD Unavailable +[phone] Srinivas Marie DO Unavailable [phone] Reason for Visit * Reason Onset Date Comments Prior Auth - Medication 04/28/2019 gabapent in (NEURONTIN) 100 MG capsule-Tiering Exception-Denied Encounter Details Date Type Department Care Team (Late st Contact Info) Description 04/28/[address], [address] [place] [address] [place] [address] [place] [address] Prior Auth - Medication (gabapentin (NEURONTIN) 100 MG capsule-Tiering Exception-Denied) Social History Tobacco Use Types Packs/Day Years [...] Sex Assigned at Female 08/17/2018 7:56 AM INGREDIENT HANDLER Legal Sex Female 4:24 AM INGREDIENT HANDLER Gender Identity Female 08/17/2018 7:56 AM INGREDIENT HANDLER Sexual Orientation Straight 08/17/2018 7: 56 AM INGREDIENT HANDLER documented as of this encounter Miscellaneous Notes * Telephone Encounter - Nidhi Russo - 05/02/2019 11:45 AM CST Images from the original note were not included. PRIOR AUTHORIZATION DENIED Medication: gabapentin (NEURONTIN) 100 MG capsule-Tiering Exception-Denied Denial Date: 04/28/2019 Denial Rational: Patient does not meet criteria for tiering exception EDIENT HANDLER * Telephone Encounter - KaranAmilcarNidhi L - 05/02/2019 10:41 AM CST I spoke to Chance at [facility]. She states this request was denied. She will have the denial refaxed. EDIENT HANDLER * Telephone Encounter - Karan Nidhi L - 04/28/2019 9:27 AM CST [place] Prior Authorization Team PA Initiation-Tiering exception. Completed via phone with Jamee at [facility] Medication: gabapentin (NEURONTIN) 100 MG capsule-Tiering Exception Insurance Company: [facility] - Pharmacy Filling the Rx: [facility] - [place], [place] - [address] [place] [address] Filling Pharmacy Filling Pharmacy Fax: Start Date: 04/28/2019 EDIENT HANDLER documented in this encounter Plan of Treatment Upcoming Encounters Date Type Department Care Team (Late st Contact Info) Description 09/07/2024 10:00 AM CDT Office Visit [facility] [address] [phone] Fransisco Eddy MD [address] [place] [address] 03/29/2025 3:40 PM CDT Office Visit [address] [phone] Alfreda Ray PA-C [address] [place] [address] 453312 documented as of this encounter Visit Diagnoses Not on filedocumented in this encounter Additional Health Concerns Infection Onset Date Last Indicated Resolved Time Rule Out COVID-19 05/08/2021 05/08/2021 05/09/2021 9:08 PM INGREDIENT HANDLER Assessment Noted Time PHQ-9 Depression Total Score: 1 08/20/19 19 1:44 PM INGREDIENT HANDLER documented as of this encounter Care Teams Instructor Robotics Relationship Specialty Start Date End Date Esperanza Gatica MD PCP - General Family Practice 10/13/11 12/29/21 Alfreda Ray PA-C [address] [place] [address] PCP - General Family Medicine 12/30/21 [place] [address] LISB[address] GARCIA [address] Assigned PCP 12/05/17 09/30/19 [place] [address] [address] GARCIA [address] Assigned PCP 10/01/19 03/02/20 [place] [address] [address] GARCIA [address] Assigned PCP 03/03/20 05/25/20 [place] [address] [address] GARCIA [address] Assigned PCP 05/26/20 09/28/20 [place] [address] [address]IS[address] GARCIA [address] Assigned PCP 09/29/20 07/31/22 [place] [address] [place] [address] [address] Assigned Musculoskeletal Provider 10/20/20 04/17/22 Alfreda Ray PA-C [address] [place] [address] [phone] Referring Physician Family Medicine 12/31/21 Katrin Orellana PA-C [address] [place] [address] 155935 Physician Fish Tender Dermatology 12/31/21 Shanna Vang PA-C [address] [place] [address] 951384 Assigned Cancer Care Provider 01/10/22 Fransisco Eddy MD [address] [place] [address] 273445 Assigned Rheumatology Provider 05/09/22 [place] [address] LISB[address] GARCIA [address] Assigned Pain Medication Provider 06/29/22 09/04/22 [place] [address] LIS[address] GARCIA [address] Assigned PCP 08/15/22 08/28/22 Katrin Orellana PA-C [address] [place] [address] 004525 Assigned Surgical Provider 08/15/22 02/10/24 Cristina Hsieh [facility] [address] [facility] LISBETH HERNANDEZ [address] Pharmacist Pharmacist 09/07/22 Alfreda Ray PA-C [address] [place] [address] 411372 Assigned Pain Medication Provider 09/05/22 09/10/23 Alfreda Ray PA-C [address] [place] [address] Assigned PCP 08/29/22 Cristina Hsieh [facility] [address] [place] [address] Assigned MTM Pharmacist 09/26/22 Dakota Tatum MD [address] [place] [address]494 Cardiovascular Disease 03/25/23 Dakota Tatum MD [address] [place] [address] Assigned Heart and Vascular Provider 05/01/23 [place] [address] [address] Assigned Musculoskeletal Provider 04/12/24 documented as of this encounter
--- OUTSIDE RECORDS SUMMARY | 2024-06-22 23:12 | XMS_ITS | Encounter Summary ---
Author Organization [place] Address [address] [place] [address] Care Team Providers Care Senior Underwriter Name Role Phone Esperanza Gatica MD Primary Care Provider + Esperanza Gatica MD Unavailable + Esperanza Gatica MD Unavailable + Esperanza Gatica MD Unavailable + Esperanza Gatica MD Unavailable + Esperanza Gatica MD Unavailable + Jesús Orourke MD Unavailable Alfreda Ray-C Primary Care Provider + Alfreda Ray-C Unavailable + [phone] Katrin OrellanaC Unavailable +[phone] Shanna Vang-C Unavailable +[phone] Fransisco Eddy MD Unavailable [phone] Esperanza Gatica MD Unavailable + Esperanza Gatica MD Unavailable + Katrin OrellanaC Unavailable +1-28 Cristina Hsieh [facility] Unavailable +60 Ho Raymustapha Liu PA-C Unavailable +[phone] Ray, Alfreda Liu PA-C Unavailable +[phone] Cristina Hsieh [facility] Unavailable +[phone] Dakota Tatum MD Unavailable +[phone] Dakota Tatum MD Unavailable +[phone] Srinivas Marie DO Unavailable [phone] Reason for Visit * Reason Onset Date Comments Medication Question 09/19/2018 Gabapentin d osing Encounter Details Date Type Department Care Team (Late st Contact Info) Description 09/19/2018 MyC Medical Advice [address], [address] [place] [address] [place] [address] [place] [address] Medication Question (Gabapentin dosing) Social History Tobacco Use Types Packs/Day Years [...] Sex Assigned at Female 08/17/2018 7:56 AM NIGHT SHIFT Legal Sex Female 4:24 AM NIGHT SHIFT Gender Identity Female 08/17/2018 7:56 AM NIGHT SHIFT Sexual Orientation Straight 08/17/2018 7: 56 AM NIGHT SHIFT documented as of this encounter Miscellaneous Notes * Telephone Encounter - Yuliet Barrera RN - 09/20/2018 6:11 PM CDT Taking 2 caps BID of Gabapentin every day Yuliet Barrera RN, BS Clinical Nurse Triage. * Telephone Encounter - Esperanza Gatica MD - 09/20/2018 2:14 PM CDT I believe the neurotin should be 2 twice daily and an old rx got refilled. Please discuss with pt and update chart, thank you documented in this encounter Plan of Treatment Upcoming Encounters Date Type Department Care Team (Late st Contact Info) Description 09/07/2024 10:00 AM CDT Office Visit [facility] [address] [place] [phone] Fransisco Eddy MD [address] [place] [address] 345345 03/29/2025 3:40 PM CDT Office Visit [address] [phone] Alfreda Ray PA-C [address] [place] [address] 489362 documented as of this encounter Visit Diagnoses Not on filedocumented in this encounter Additional Health Concerns Infection Onset Date Last Indicated Resolved Time Rule Out COVID-19 05/08/2021 05/08/2021 05/09/2021 9:08 PM NIGHT SHIFT Assessment Noted Time PHQ-9 Depression Total Score: 1 08/20/19 19 1:44 PM NIGHT SHIFT documented as of this encounter Care Teams Senior Underwriter Relationship Specialty Start Date End Date Esperanza Gatica MD PCP - General Family Practice 10/13/11 12/29/21 Alfreda Ray PA-C [address] [place] [address] 427792 PCP - General Family Medicine 12/30/21 [place] [address] [place] [address] Assigned PCP 12/05/17 09/30/19 [place] [address] [place] [address] Assigned PCP 10/01/19 03/02/20 [place] [address] [place] [address] Assigned PCP 03/03/20 05/25/20 [place] [address] [place] [address] Assigned PCP 05/26/20 09/28/20 [place] [address] [place] [address] Assigned PCP 09/29/20 07/31/22 Jesú[place] [address] [place] [address] Assigned Musculoskeletal Provider 10/20/20 04/17/22 Alfreda Ray PA-C [address] [place] [address] 178562 Referring Physician Family Medicine 12/31/21 Katrin Orellana PA-C [address] [place] [address] Physician Psychology Intern Dermatology 12/31/21 BernShanna Amos PA-C [address] [place] [address] Assigned Cancer Care Provider 01/10/22 Fransisco Eddy MD [address] [place] [address] 88 [place] [address] Assigned Rheumatology Provider 05/09/22 [place] [address] [place] [address] Assigned Pain Medication Provider 06/29/22 09/04/22 [place] [address] [place] [address] Assigned PCP 08/15/22 08/28/22 Katrin Orellana PA-C [address] [place] [address] 98 [place] [address] Assigned Surgical Provider 08/15/22 02/10/24 Cristina Hsieh, [facility] [address] [facility] LISBETH HERNANDEZ [address] Pharmacist Pharmacist 09/07/22 Alfreda Ray PA-C [address] [place] [address] 747152 Assigned Pain Medication Provider 09/05/22 09/10/23 Alfreda Ray PA-C [address] [place] [address] Assigned PCP 08/29/22 Cristina Hsieh, [facility] [address] [facility] [address] [place] [address] Assigned MTM Pharmacist 09/26/22 Dakota Tatum MD [address] [place] [address] 593135 Cardiovascular Disease 03/25/23 Dakota Tatum MD [address] [place] [address] 897675 Assigned Heart and Vascular Provider 05/01/23 [place] [address] [address], [facility] [address] [place] [address] Assigned Musculoskeletal Provider 04/12/24 documented as of this encounter
--- OUTSIDE RECORDS SUMMARY | 2024-06-22 23:12 | XMS_ITS | Encounter Summary ---
Author Organization [facility] Address [address] [place] [address] 6[address]54 Care Team Providers Care Manager Financial Planning Name Role Phone Esperanza Gatica MD Primary Care Provider + Esperanza Gatica MD Unavailable + Esperanza Gatica MD Unavailable + Esperanza Gatica MD Unavailable + Esperanza Gatica MD Unavailable + Esperanza Gatica MD Unavailable + Jesús Orourke MD Unavailable Alfreda Ray-C Primary Care Provider + Alfreda Ray-C Unavailable + [phone] Katrin OrellanaC Unavailable +[phone] Shanna Vang-C Unavailable +[phone] Fransisco Eddy MD Unavailable +[phone] Esperanza Gatica MD Unavailable + Esperanza Gatica MD Unavailable + Katrin OrellanaC Unavailable +[phone] Cristina Hsieh [facility] Unavailable +[phone] Ray, Alfreda Liu PA-C Unavailable +[phone] Ray, Alfreda Liu PA-C Unavailable +[phone] Cristina Hsieh [facility] Unavailable +[phone] LaDakota guerra MD Unavailable +[phone] LaDakota guerra MD Unavailable +[phone] Srinivas Marie DO Unavailable +[phone] Reason for Visit * Reason Onset Date Comments MyChart Communication 10/04/2018 Encounter Details Date Type Department Care Team (Late st Contact Info) Description 10/04/2018 MyC Medical Advice [address], [address] [place] [address] [place] [address] [place] [address] MyChart Communication Social History Tobacco Use Types [...] Sex Assigned at Female 08/17/2018 7:56 AM OTHER SPORTS OFFICIAL Legal Sex Female 4:24 AM OTHER SPORTS OFFICIAL Gender Identity Female 08/17/2018 7:56 AM OTHER SPORTS OFFICIAL Sexual Orientation Straight 08/17/2018 7: 56 AM OTHER SPORTS OFFICIAL documented as of this encounter Plan of Treatment Upcoming Encounters Date Type Department Care Team (Late st Contact Info) Description 09/07/2024 10:00 AM CDT Office Visit [address] [place] [address] Fransisco Eddy MD [address] [place] [address] 03/29/2025 3:40 PM CDT Office Visit [address] [phone] Alfreda Ray PA-C [address] [place] [address] 584912 documented as of this encounter Visit Diagnoses Not on filedocumented in this encounter Additional Health Concerns Infection Onset Date Last Indicated Resolved Time Rule Out COVID-19 05/08/2021 05/08/2021 05/09/2021 9:08 PM OTHER SPORTS OFFICIAL Assessment Noted Time PHQ-9 Depression Total Score: 1 08/20/19 19 1:44 PM OTHER SPORTS OFFICIAL documented as of this encounter Care Teams Manager Financial Planning Relationship Specialty Start Date End Date Esperanza Gatica MD PCP - General Family Practice 10/13/11 12/29/21 Alfreda Ray PA-C [address] [place] [address] 659272 PCP - General Family Medicine 12/30/21 [place] [address] [address] [address] Assigned PCP 12/05/17 09/30/19 [place] [address] [address] [address] Assigned PCP 10/01/19 03/02/20 [place] [address] [address] [address] Assigned PCP 03/03/20 05/25/20 [place] [address] [place] [address] Assigned PCP 05/26/20 09/28/20 [place] [address] [place] [address] Assigned PCP 09/29/20 07/31/22 Jesú[place] [address] [place] [facility] [place] [address] Assigned Musculoskeletal Provider 10/20/20 04/17/22 Alfreda Ray PA-C [address] [place] [address] 075382 Referring Physician Family Medicine 12/31/21 Katrin Orellana PA-C [address] [place] [address] 98 [place], [place] 072485 Physician Automatic Spinning Lathe Operator Dermatology 12/31/21 Shanna Vang PA-C [address] [place] [address] 913424 Assigned Cancer Care Provider 01/10/22 Fransisco Eddy MD [address] [place] [address] 593725 Assigned Rheumatology Provider 05/09/22 [place] [address] [place] [address] Assigned Pain Medication Provider 06/29/22 09/04/22 [place] [address] [place] [address] Assigned PCP 08/15/22 08/28/22 Katrin Orellana PA-C [address] [place] [address] 98 [place], [place] 207095 Assigned Surgical Provider 08/15/22 02/10/24 Cristina Hsieh [facility] [address] [facility] [place]Z [address] Pharmacist Pharmacist 09/07/22 Alfreda Ray PA-C [address] [place] [address] 839082 Assigned Pain Medication Provider 09/05/22 09/10/23 Alfreda Ray PA-C [address] [place] [address] 185782 Assigned PCP 08/29/22 Cristina Hsieh [facility] [address] [address] Assigned MTM Pharmacist 09/26/22 Dakota Tatum MD [address] [place] [address] 362515 Cardiovascular Disease 03/25/23 Dakota Tatum MD [address] [place] [address] Assigned Heart and Vascular Provider 05/01/23 [place] [address] [address], [address] [address] Assigned Musculoskeletal Provider 04/12/24 documented as of this encounter
--- OUTSIDE RECORDS SUMMARY | 2024-06-22 23:12 | XMS_ITS | Encounter Summary ---
Author Organization [facility] Address [address] [place] [address] Care Team Providers Care Tongue Trimmer Name Role Phone Esperanza Gatica MD Primary Care Provider + Esperanza Gatica MD Unavailable +[phone] Esperanza Gatica MD Unavailable +[phone] Esperanza Gatica MD Unavailable +[phone] Esperanza Gatica MD Unavailable +[phone] Esperanza Gatica MD Unavailable +[phone] Esperanza Gatica MD Unavailable +[phone] Jesús Orourke MD Unavailable Alfreda RayC Primary Care Provider + Alfreda Ray PA-C Unavailable + [phone] Katrin Orellana PA-C Unavailable +[phone] Shanna VangC Unavailable +[phone] Fransisco Eddy MD Unavailable +[phone] Esperanza Gatica MD Unavailable +[phone] Esperanza Gatica MD Unavailable +[phone] Katrin Orellana PA-C Unavailable +[phone] Cristina Hsieh [facility] Unavailable Cory Alfreda Liu PA-C Unavailable +[phone] Ho Raymustapha Liu PA-C Unavailable +[phone] Cristina Hsieh [facility] Unavailable +[phone] Dakota Tatum MD Unavailable Dakota Tatum MD Unavailable Srinivas Marie DO Unavailable [phone] Reason for Visit * Reason Onset Date Comments Prior Auth - Medication 10/14/2017 Temazepa m Encounter Details Date Type Department Care Team (Late st Contact Info) Description 10/14/2017 MyC Medical Advice M [address], [facility] [address] [place] [address] [place] [address] [place] [address] Prior Auth - Medication (Temazepam) Social History Tobacco Use Types Packs/Day Years Used Date Smoking Tobacco: Former Cigarettes 1 5 0 06/21/1963 - 06/21/1968 Smokeless Tobacco: Former Comments:not a smoker Alcohol Use Standard Drinks/Week Comments Yes 0 (1 standard drink = 0.6 oz pure alcohol) Very occasionally - 2 per month Comments No Sex and Gender Information Value Date Recorded Sex Assigned at Female 08/17/2018 7:56 AM OUTREACH PROFESSIONAL Legal Sex Female 4:24 AM OUTREACH PROFESSIONAL Gender Identity Female 08/17/2018 7:56 AM OUTREACH PROFESSIONAL Sexual Orientation Straight 08/17/2018 7: 56 AM OUTREACH PROFESSIONAL documented as of this encounter Miscellaneous Notes * Telephone Encounter - Leigha Rinaldi RN - 10/15/2017 10:14 AM CDT Received prior auth APPROVAL for Temazepam effective 07/17/2017 - 06/20/2018. Information faxed to pharmacy and patient notified. Leigha Rinaldi RN * Telephone Encounter - Cruz, Treva E, RN - 10/15/2017 9:26 AM CDT [facility] calling to get more information. They will be faxing over a form with more information on what they need in order to approve the PA Treva Cruz RN, BSN * Telephone Encounter - Leigha Rinaldi RN - 10/15/2017 7:30 AM CDT Prior auth submitted via [employer]. Can call to check the status. Was advised it can take up to 1-3 days. Leigha Rinaldi RN documented in this encounter Plan of Treatment Upcoming Encounters Date Type Department Care Team (Late st Contact Info) Description 09/07/2024 10:00 AM CDT Office Visit [address] [phone] Fransisco Eddy MD [address] [place] [address] 652165 03/29/2025 3:40 PM CDT Office Visit [address] [phone] Alfreda aRy PA-C [address] [place] [address] 960422 documented as of this encounter Visit Diagnoses Not on filedocumented in this encounter Additional Health Concerns Infection Onset Date Last Indicated Resolved Time Rule Out COVID-19 05/08/2021 05/08/2021 05/09/2021 9:08 PM OUTREACH PROFESSIONAL Assessment Noted Time PHQ-9 Depression Total Score: 0 08/18/19 17 7:09 AM OUTREACH PROFESSIONAL documented as of this encounter Care Teams Tongue Trimmer Relationship Specialty Start Date End Date Esperanza Gatica MD PCP - General Family Practice 10/13/11 12/29/21 [place] [address] [place] [address] PCP - Assigned PCP 12/05/17 08/23/18 Alfreda Ray PA-C [address] [place] [address] PCP - General Family Medicine 12/30/21 [place] [address] [place] [address] Assigned PCP 12/05/17 09/30/19 [place] [address] [place] [address] Assigned PCP 10/01/19 03/02/20 [place] [address] [place] [address] Assigned PCP 03/03/20 05/25/20 [place] [address] [place] [address] Assigned PCP 05/26/20 09/28/20 [place] [address] [place] [address] Assigned PCP 09/29/20 07/31/22 [place] [address] [place] [address] [place] [address] 8[address] Assigned Musculoskeletal Provider 10/20/20 04/17/22 Alfreda Ray PA-C [address] [place] [address] 857652 Referring Physician Family Medicine 12/31/21 Katrin Orellana PA-C [address] [place] [address] 566745 Physician Shoulder Sawyer Dermatology 12/31/21 Shanna Vang PA-C [address] 325744 Assigned Cancer Care Provider 01/10/22 Fransisco Eddy MD [address] [place] [address] 441315 Assigned Rheumatology Provider 05/09/22 [place] [address] [address] [address] Assigned Pain Medication Provider 06/29/22 09/04/22 [place] [address] [address] [address] Assigned PCP 08/15/22 08/28/22 Katrin Orellana PA-C [address] [place] [address] 291155 Assigned Surgical Provider 08/15/22 02/10/24 Cristina Hsieh, [facility] [address] [facility] [place] [address] Pharmacist Pharmacist 09/07/22 Alfreda Ray PA-C [address] [place] [address] 692762 Assigned Pain Medication Provider 09/05/22 09/10/23 Alfreda Ray PA-C [address] [place] [address] 410532 Assigned PCP 08/29/22 Cristina Hsieh [facility] [address] [address] Assigned MTM Pharmacist 09/26/22 Dakota Tatum MD [address] [place] [address] Cardiovascular Disease 03/25/23 Dakota Tatum MD [address] [place] [address] Assigned Heart and Vascular Provider 05/01/23 [place] [address] [address] , [facility] [address] [place] [address] Assigned Musculoskeletal Provider 04/12/24 documented as of this encounter
--- OUTSIDE RECORDS SUMMARY | 2024-06-22 23:12 | XMS_ITS | Encounter Summary ---
Author Organization [facility] Address [address] [place] [address] Care Team Providers Care Videographer Name Role Phone Esperanza Gatica MD Primary Care Provider + Esperanza Gatica MD Unavailable +[phone] Esperanza Gatica MD Unavailable +[phone] Esperanza Gatica MD Unavailable +[phone] Esperanza Gatica MD Unavailable +342 Esperanza Gatica MD Unavailable +212 Esperanza Gatica MD Unavailable +[phone] Jesús Orourke MD Unavailable Alfreda RayC Primary Care Provider + Alfreda Ray PA-C Unavailable + [phone] Katrin Orellana PA-C Unavailable +[phone] Shanna VangC Unavailable +[phone] Fransisco Eddy MD Unavailable +[phone] Esperanza Gatica MD Unavailable +[phone] Esperanza Gatica MD Unavailable +[phone] Katrin Orellana PA-C Unavailable Cristina Hsieh [facility] Unavailable Cory Alfreda Liu PA-C Unavailable +[phone] Alfreda Ray Alexa KING Unavailable +[phone] Cristina Hsieh [facility] Unavailable [phone] Dakota Tatum MD Unavailable Dakota Tatum MD Unavailable [phone] Srinivas Marie DO Unavailable [phone] Reason for Visit * Reason Comments Medication Refill simvastatin (ZOCOR) 20 MG tablet Encounter Details Date Type Department Care Team (Late st Contact Info) Description 08/14/[address], [address] [place] [address] Zenaida Coon APRN RECREATION COUNSELOR [address] [place] [address] Medication Refill (simvastatin (ZOCOR) 20 MG tablet) Social History Tobacco Use Types [...] Sex Assigned at Female 08/17/2018 7:56 AM SEAFOOD AND SERVICE MEAT MANAGER Legal Sex Female 4:24 AM SEAFOOD AND SERVICE MEAT MANAGER Gender Identity Female 08/17/2018 7:56 AM SEAFOOD AND SERVICE MEAT MANAGER Sexual Orientation Straight 08/17/2018 7: 56 AM SEAFOOD AND SERVICE MEAT MANAGER documented as of this encounter Miscellaneous Notes * Telephone Encounter - Leigha Rinaldi RN - 08/16/2018 12:26 PM CST Prescription approved per [facility] [place] Protocol. Leigha Rinaldi RN OOD AND SERVICE MEAT MANAGER * Telephone Encounter - Yohan Whitaker 08/15/2018 11:41 AM CST Requested Prescriptions Pending Prescriptions Disp Refills ??? simvastatin (ZOCOR) 20 MG tablet [Pharmacy Med Name: SIMVASTATIN 20MG TABS] Last Written Prescription Date: 04/04/18 Last Fill Quantity: 90 TABLET, # refills: 3 Last office visit: 04/04/2018 with prescribing provider: TERA Future Office Visit: Next 5 appointments (look out 90 days) Aug 19, 2018 11:00 AM SEAFOOD AND SERVICE MEAT MANAGER PHYSICAL with Esperanza Gatica MD [facility] ([facility] [address] [place] [address], [facility] 100 [facility] [address] 90 tablet 3 Sig: TAKE ONE TABLET BY MOUTH AT BEDTIME [facility] Protocol Passed - 08/14/2018 12:13 PM Passed - LDL on file in past 12 months Recent Labs Lab Test 12/01/17 0946 LDL 55 Passed - No abnormal creatine kinase in past 12 months Recent Labs Lab Test 03/31/11 1431 CKT 49 Passed - Recent (12 mo) or future (30 days) visit within the authorizing provider's specialty Patient had office visit in the last 12 months or has a visit in the next 30 days with authorizing provider or within the authorizing provider's specialty. See Patient Info tab in inbasket, or Choose Columns in Meds & Orders section of the refill encounter. Passed - Medication is active on med list Passed - Patient is age 18 or older Passed - No active on record Passed - No positive test in past 12 months OOD AND SERVICE MEAT MANAGER documented in this encounter Plan of Treatment Upcoming Encounters Date Type Department Care Team (Late st Contact Info) Description 09/07/2024 10:00 AM CDT Office Visit [address] [phone] Fransisco Eddy MD [address] [place] [address] 862615 03/29/2025 3:40 PM CDT Office Visit [address] [phone] Alfreda Ray PA-C [address] [place] [address] 704322 documented as of this encounter Visit Diagnoses Diagnosis Hyperlipidemia LDL goal <160 Other and unspecified hyperlipidemia documented in this encounter Additional Health Concerns Infection Onset Date Last Indicated Resolved Time Rule Out COVID-19 05/08/2021 05/08/2021 05/09/2021 9:08 PM SEAFOOD AND SERVICE MEAT MANAGER Assessment Noted Time PHQ-9 Depression Total Score: 1 04/05/20 18 7:16 AM CDT documented as of this encounter Care Teams Videographer Relationship Specialty Start Date End Date Esperanza Gatica MD PCP - General Family Practice 10/13/11 12/29/21 [place] [address] [address] [address] PCP - Assigned PCP 12/05/17 08/23/18 Alfreda Ray PA-C [address] [place] [address] 988132 PCP - General Family Medicine 12/30/21 [place] [address] [address] [address] Assigned PCP 12/05/17 09/30/19 [place] [address] [address] [address] Assigned PCP 10/01/19 03/02/20 [place] [address] [place] [address] Assigned PCP 03/03/20 05/25/20 [place] [address] [place] [address] Assigned PCP 05/26/20 09/28/20 [place] [address] [place] [address] Assigned PCP 09/29/20 07/31/22 [place] [address] [place] [address] Assigned Musculoskeletal Provider 10/20/20 04/17/22 Alfreda Ray PA-C [address] [place] [address] 161702 Referring Physician Family Medicine 12/31/21 Katrin Orellana PA-C [address] [place] [address] 98 [place], [place] 785695 Physician Automobile Service Writer Dermatology 12/31/21 Shanna Vang PA-C [address] [place] [address] 383364 Assigned Cancer Care Provider 01/10/22 Fransisco Eddy MD [address] [place] [address] 469815 Assigned Rheumatology Provider 05/09/22 [place] [address] [place] [address] Assigned Pain Medication Provider 06/29/22 09/04/22 [place] [address] [place] [address] Assigned PCP 08/15/22 08/28/22 Katrin Orellana PA-C [address] [place] [address] 98 [place], [place] 901905 Assigned Surgical Provider 08/15/22 02/10/24 Cristina Hsieh [facility] [address] [facility] [place]Z [address] Pharmacist Pharmacist 09/07/22 Alfreda Ray PA-C [address] [place] [address] 230002 Assigned Pain Medication Provider 09/05/22 09/10/23 Alfreda Ray PA-C [address] [place] [address] Assigned PCP 08/29/22 Cristina Hsieh [facility] [address] [address] Assigned MTM Pharmacist 09/26/22 Dakota Tatum MD [address] [place] [address] Cardiovascular Disease 03/25/23 Dakota Tatum MD 6 [place] [address] Assigned Heart and Vascular Provider 05/01/23 [place] [address] [place] , [address] [address] Assigned Musculoskeletal Provider 04/12/24 documented as of this encounter
--- OUTSIDE RECORDS SUMMARY | 2024-06-22 23:12 | XMS_ITS | Encounter Summary ---
Author Organization [facility] Address [address] [place] [address] Care Team Providers Care Brewery Cellar Worker Name Role Phone Esperanza Gatica MD Primary Care Provider + Esperanza Gatica MD Unavailable + Esperanza Gatica MD Unavailable + Esperanza Gatica MD Unavailable + Esperanza Gatica MD Unavailable + Esperanza Gatica MD Unavailable + Jesús Orourke MD Unavailable Alfreda Ray-C Primary Care Provider + Alfreda Ray-C Unavailable + [phone] Katrin OrellanaC Unavailable +[phone] Shanna Vang-C Unavailable +[phone] Fransisco Eddy MD Unavailable [phone] Esperanza Gatica MD Unavailable + Esperanza Gatica MD Unavailable + Katrin OrellanaC Unavailable +[phone] Cristina Hsieh [facility] Unavailable +60 Aflreda Ray PA-C Unavailable [phone] Alfreda Ray PA-C Unavailable Cirstina Hsieh Martin [facility] Unavailable [phone] Dakota Tatum MD Unavailable Dakota Tatum MD Unavailable [phone] Srinivas Marie DO Unavailable [phone] Encounter Details Date Type Department Care Team (Late st Contact Info) Description 01/25/2019 MyC Medical Advice [address] [address] Jena Howe RN Social History Tobacco Use Types Packs/Day [...] Sex Assigned at Female 08/17/2018 7:56 AM NUCLEAR MEDICINE OFFICER Legal Sex Female 4:24 AM NUCLEAR MEDICINE OFFICER Gender Identity Female 08/17/2018 7:56 AM NUCLEAR MEDICINE OFFICER Sexual Orientation Straight 08/17/2018 7: 56 AM NUCLEAR MEDICINE OFFICER documented as of this encounter Plan of Treatment Upcoming Encounters Date Type Department Care Team (Late st Contact Info) Description 09/07/2024 10:00 AM CDT Office Visit [facility] [address] [phone] Fransisco Eddy MD [address] [place] [address] [phone] 03/29/2025 3:40 PM CDT Office Visit [address] [phone] Alfreda Ray PA-C [address] [place] [place] [address] documented as of this encounter Visit Diagnoses Not on filedocumented in this encounter Additional Health Concerns Infection Onset Date Last Indicated Resolved Time Rule Out COVID-19 05/08/2021 05/08/2021 05/09/2021 9:08 PM NUCLEAR MEDICINE OFFICER Assessment Noted Time PHQ-9 Depression Total Score: 1 08/20/19 19 1:44 PM NUCLEAR MEDICINE OFFICER documented as of this encounter Care Teams Brewery Cellar Worker Relationship Specialty Start Date End Date Esperanza Gatica MD PCP - General Family Practice 10/13/11 12/29/21 Alfreda Ray PA-C [address] [place] [address] PCP - General Family Medicine 12/30/21 [place] [address] [address] [id number] Assigned PCP 12/05/17 09/30/19 [place] [address] [address] [address] Assigned PCP 10/01/19 03/02/20 [place] [address] [address] [address] Assigned PCP 03/03/20 05/25/20 [place] [address] [address] [address] Assigned PCP 05/26/20 09/28/20 [place] [address] [place] [address] Assigned PCP 09/29/20 07/31/22 Jesú[place] [address] [place] [address] Assigned Musculoskeletal Provider 10/20/20 04/17/22 Alfreda Ray PA-C [address] [place] [address] 585192 Referring Physician Family Medicine 12/31/21 Katrin Orellana PA-C [address] [place] [address] 98 [place], [place] 462915 Physician Low Raw Sugar Cutter Dermatology 12/31/21 Shanna Vang PA-C [address] 538374 Assigned Cancer Care Provider 01/10/22 Fransisco Eddy MD [address] [place] [address] 707785 Assigned Rheumatology Provider 05/09/22 [place] [address] [place] [address] Assigned Pain Medication Provider 06/29/22 09/04/22 [place] [address] [place] [address] Assigned PCP 08/15/22 08/28/22 Katrin Orellana PA-C [address] [facility] 98 [place] [address] Assigned Surgical Provider 08/15/22 02/10/24 Cristina Hsieh [facility] 3[address] [facility] [place] [address] Pharmacist Pharmacist 09/07/22 Alfreda Ray PA-C [address] [place] [address] 200232 Assigned Pain Medication Provider 09/05/22 09/10/23 Alfreda Ray PA-C [address] [place] [place] [address] 399762 Assigned PCP 08/29/22 Cristina Hsieh, [facility] [address] [address] Assigned MTM Pharmacist 09/26/22 Dakota Tatum MD [address] [place] [address] Cardiovascular Disease 03/25/23 Dakota Tatum MD 6 [place] [address] Assigned Heart and Vascular Provider 05/01/23 [place] [address] [address], [facility] 300 [place] [address] Assigned Musculoskeletal Provider 04/12/24 documented as of this encounter
--- OUTSIDE RECORDS SUMMARY | 2024-06-22 23:12 | XMS_ITS | Encounter Summary ---
Author Organization [place] Address [address] [place] [address] Care Team Providers Care Air Motor Repairer Name Role Phone Kelly Haley MD Primary Care Provider + Kelly Haley MD Unavailable +[phone] Kelly Haley MD Unavailable +[phone] Kelly Haley MD Unavailable +[phone] Kelly Haley MD Unavailable +[phone] Kelly Haley MD Unavailable +[phone] Kelly Haley MD Unavailable +[phone] Jesús Orourke MD Unavailable Alfreda RayC Primary Care Provider + Alfreda Ray PA-C Unavailable + [phone] Katrin Orellana PA-C Unavailable [phone] Shanna VangC Unavailable +[phone] Fransisco Eddy MD Unavailable [phone] Kelly Haley MD Unavailable +[phone] Kelly Haley MD Unavailable +[phone] Katrin Orellana PA-C Unavailable Cristina Hsieh [facility] Unavailable Cory Alfreda Liu PA-C Unavailable +[phone] Ho Raymustapha Liu PA-C Unavailable +[phone] Cristina Hsieh [facility] Unavailable [phone] Dakota Tatum MD Unavailable Dakota Tatum MD Unavailable [phone] Srinivas Marie DO Unavailable [phone] Reason for Visit * Reason Onset Date Comments Refill Request 06/16/2018 HYDROcodone-acet aminophen (NORCO) 5-325 MG per tablet Encounter Details Date Type Department Care Team (Late st Contact Info) Description 06/16/2018 MyC Refill [address], [address] [place] [address] [place] [address] [place] [address] Refill Request (HYDROcodone-acetamino phen ... Social History Tobacco Use Types Packs/Day Years Used Date Smoking Tobacco: Former Cigarettes 1 5 0 06/21/1963 - 06/21/1968 Smokeless Tobacco: Never Comments:not a smoker Alcohol Use Standard Drinks/Week Comments Yes 0 (1 standard drink = 0.6 oz pure alcohol) Very occasionally - 2 per month Comments No Sex and Gender Information Value Date Recorded Sex Assigned at Female 08/17/2018 7:56 AM ABATTOIR SUPERVISOR Legal Sex Female 4:24 AM ABATTOIR SUPERVISOR Gender Identity Female 08/17/2018 7:56 AM ABATTOIR SUPERVISOR Sexual Orientation Straight 08/17/2018 7: 56 AM ABATTOIR SUPERVISOR documented as of this encounter Miscellaneous Notes * Telephone Encounter - Leigha Rinaldi RN - 06/17/2018 1:45 PM CST Duplicate. Leigha Rinaldi RN TOIR SUPERVISOR * Telephone Encounter - Diya Stone - 06/17/2018 8:47 AM CST Controlled Substance Refill Request for HYDROcodone-acetaminophen (NORCO) 5-325 MG per tablet Problem List Complete: Yes Overview Addendum [...] Score(s): No flowsheet data found. ?? Last [facility] website verification: Done 03.16.18 Last Written Prescription Date: 03/24/18 Last Fill Quantity: 90, # refills: 0 Last Office Visit with [facility] [place] care provider: 04/04/2018 Clinic visit frequency required: Q 3 months Future Office visit: Next 5 appointments (look out 90 days) Jul 05, 2018 10:00 AM ABATTOIR SUPERVISOR PHYSICAL with Kelly Haley MD [facility] [address] [place] [address] 100 [facility] [address] Controlled substance agreement on file: Yes: Date 03/08/15. 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 No, route to RN TOIR SUPERVISOR documented in this encounter Plan of Treatment Upcoming Encounters Date Type Department Care Team (Late st Contact Info) Description 09/07/2024 10:00 AM CDT Office Visit [facility] Specialty [address] [place] [address] Fransisco Eddy MD [address] [place] [address] 03/29/2025 3:40 PM CDT Office Visit [address] [phone] Alfreda Ray PA-C [address] [place] [address] [phone] documented as of this encounter Visit Diagnoses Diagnosis Primary osteoarthritis involving multiple joints documented in this encounter Additional Health Concerns Infection Onset Date Last Indicated Resolved Time Rule Out COVID-19 05/08/2021 05/08/2021 05/09/2021 9:08 PM ABATTOIR SUPERVISOR Assessment Noted Time PHQ-9 Depression Total Score: 1 04/05/20 18 7:16 AM CDT documented as of this encounter Care Teams Air Motor Repairer Relationship Specialty Start Date End Date Kelly Haley MD PCP - General Family Practice 10/13/11 12/29/21 [place] [address] [address] [address] PCP - Assigned PCP 12/05/17 08/23/18 Alfreda Ray PA-C [address] [place] [address] [id number] PCP - General Family Medicine 12/30/21 [place] [address] [address] [address] Assigned PCP 12/05/17 09/30/19 [place] [address] [address] [address] Assigned PCP 10/01/19 03/02/20 [place] [address] [place] [address] Assigned PCP 03/03/20 05/25/20 [place] [address] [place] [address] Assigned PCP 05/26/20 09/28/20 [place] [address] [place] [address] Assigned PCP 09/29/20 07/31/22 Jesú[place] [address] [place] [address] Assigned Musculoskeletal Provider 10/20/20 04/17/22 Alfreda Ray PA-C [address] [place] [address] 474332 Referring Physician Family Medicine 12/31/21 Katrin Orellana PA-C [address] [place] [address] [phone] Physician General Doc Dermatology 12/31/21 Shanna Vang PA-C [address] [place] [address] 030414 Assigned Cancer Care Provider 01/10/22 Fransisco Eddy MD [address] [place] [address] 365615 Assigned Rheumatology Provider 05/09/22 [place] [address] [place] [address] Assigned Pain Medication Provider 06/29/22 09/04/22 [place] [address] [place] [address] Assigned PCP 08/15/22 08/28/22 Katrin Orellana PA-C [address] [place] [address] [address] [place], [place] 319135 Assigned Surgical Provider 08/15/22 02/10/24 Cristina Hsieh [facility] [address] [facility] [place]ETH HERNANDEZ [address] Pharmacist Pharmacist 09/07/22 Alfreda Ray PA-C [address] [place] [address] [phone] Assigned Pain Medication Provider 09/05/22 09/10/23 Alfreda Ray PA-C [address] [place] [address] 529372 Assigned PCP 08/29/22 Cristina Hsieh [facility] [address] [phone] Assigned MTM Pharmacist 09/26/22 Dakota Tatum MD [address] [place] [address] Cardiovascular Disease 03/25/23 Dakota Tatum MD [address] [place], [place] 647605 Assigned Heart and Vascular Provider 05/01/23 [place] [address] [address], [address] [phone] Assigned Musculoskeletal Provider 04/12/24 documented as of this encounter
--- OUTSIDE RECORDS SUMMARY | 2024-06-22 23:12 | XMS_ITS | Encounter Summary ---
Author Organization [place] Address [address] [place] [address] Care Team Providers Care Printmaker Name Role Phone Esperanza Gatica MD Primary Care Provider + Esperanza Gatica MD Unavailable +[phone] Esperanza Gatica MD Unavailable +[phone] Esperanza Gatica MD Unavailable +[phone] Esperanza Gatica MD Unavailable +[phone] Esperanza Gatica MD Unavailable +[phone] Esperanza Gatica MD Unavailable [phone] Jesús Orourke MD Unavailable Alfreda RayC Primary Care Provider + Alfreda Ray PA-C Unavailable + [phone] Katrin Orellana PA-C Unavailable [phone] Shanna VangC Unavailable [phone] Fransisco Eddy MD Unavailable [phone] Esperanza Gatica MD Unavailable +[phone] Esperanza Gatica MD Unavailable +[phone] Katrin Orellana PA-C Unavailable Cristina Hsieh [facility] Unavailable [phone] RayAlfreda PA-C Unavailable Cory Alfreda Liu PA-C Unavailable Cristina Hsieh [facility] Unavailable Dakota Tatum MD Unavailable Dakota Tatum MD Unavailable Srinivas Marie DO Unavailable [phone] Reason for Visit * Reason Onset Date Comments Medication Refill atenolol (TENO RMIN) 25 MG tablet Refill Request 08/14/2018 lisinopril-hydro chlorothiazide (PRINZIDE/ZESTORETIC) 10-12.5 MG per tablet Refill Request 08/14/2018 traZODone (DESYR EL) 50 MG tablet Encounter Details Date Type Department Care Team (Late st Contact Info) Description 08/14/[address], [facility] [address] [place] [address] [place] [address] [place] [address] Medication Refill (atenolol (TENORMIN) 25 MG tablet); Refill Request (lisinopril-hydrochloro thiazide (PRINZIDE/ZESTORETIC) 10-12.5 MG per tablet); Refill Request (traZODone (DESYREL) 50 MG tablet) Social History Tobacco Use [...] Sex Assigned at Female 08/17/2018 7:56 AM BATCH TRUCKER Legal Sex Female 4:24 AM BATCH TRUCKER Gender Identity Female 08/17/2018 7:56 AM BATCH TRUCKER Sexual Orientation Straight 08/17/2018 7: 56 AM BATCH TRUCKER documented as of this encounter Miscellaneous Notes * Telephone Encounter - Leigha Rinaldi RN - 08/16/2018 12:39 PM CST Prescription approved per [facility] Refill Protocol. Leigha Rinaldi RN H TRUCKER * Telephone Encounter - Yohan Whitaker Aby - 08/15/2018 11:35 AM CST Requested Prescriptions Pending Prescriptions Disp Refills ??? atenolol (TENORMIN) 25 MG tablet [Pharmacy Med Name: ATENOLOL 25MG TABS] Last Written Prescription Date: 04/04/18 Last Fill Quantity: 90 TABLET, # refills: 1 Last office visit: 04/04/2018 with prescribing provider: TERA Future Office Visit: Next 5 appointments (look out 90 days) Aug 19, 2018 11:00 AM BATCH TRUCKER PHYSICAL with Esperanza Gatica MD [facility] ([facility]) [address] [place] [address], [address] [address] 90 tablet 1 Sig: TAKE ONE TABLET BY MOUTH EVERY MORNING Beta-Blockers Protocol Passed - 08/14/2018 12:13 PM Passed - Blood pressure under 140/90 in past 12 months BP Readings from Last 3 Encounters: 04/04/18 134/70 11/29/17 134/64 08/16/17 100/40 Passed - Patient is age 6 or older Passed - Recent (12 mo) or future [...] - Medication is active on med list ??? lisinopril-hydrochlorothiazide (PRINZIDE/ZESTORETIC) 10-12.5 MG tablet [Pharmacy Med Name: LISINOPRIL-HYDROCHLORO 10-12.5 TABS] Last Written Prescription Date: 08/26/17 Last Fill Quantity: 90 TABLET, # refills: 2 Last office visit: 04/04/2018 with prescribing provider: TERA Future Office Visit: Next 5 appointments (look out 90 days) Aug 19, 2018 11:00 AM BATCH TRUCKER PHYSICAL with Esperanza Gatica MD [facility] ([facility]) [facility], [address] [place] [address] 90 tablet 2 Sig: TAKE ONE TABLET BY MOUTH EVERY DAY Diuretics (Including Combos) Protocol Passed - 08/14/2018 12:13 PM Passed - Blood pressure under 140/90 in past 12 months BP Readings from Last 3 Encounters: 04/04/18 134/70 11/29/17 134/64 08/16/17 100/40 Passed - Recent (12 mo) or future [...] 18 or older Passed - No active pregancy on record Passed - Normal serum creatinine on file in past 12 months Recent Labs Lab Test 12/01/17 0946 CR 0.92 Passed - Normal serum potassium on file in past 12 months Recent Labs Lab Test 12/01/17 0946 POTASSIUM 4.4 Passed - Normal serum sodium on file in past 12 months Recent Labs Lab Test 12/01/17 0946 NA 140 Passed - No positive test in past 12 months ??? traZODone (DESYREL) 50 MG tablet [Pharmacy Med Name: TRAZODONE HCL 50MG TABS] Last Written Prescription Date: 08/13/17 Last Fill Quantity: 90 TABLET, # refills: 3 Last office visit: 04/04/2018 with prescribing provider: TERA Future Office Visit: Next 5 appointments (look out 90 days) Aug 19, 2018 11:00 AM BATCH TRUCKER PHYSICAL with Esperanza Gatica MD [facility] ([facility]) [facility], [address] [facility] [address] 90 tablet 3 Sig: TAKE ONE TABLET BY MOUTH AT BEDTIME NEEDED FOR SLEEP Serotonin Modulators Passed - 08/14/2018 12:13 PM Passed - Recent (12 mo) or future [...] No positive test in past 12 months H TRUCKER documented in this encounter Plan of Treatment Upcoming Encounters Date Type Department Care Team ([facility] st Contact Info) Description 09/07/2024 10:00 AM CDT Office Visit [address] [phone] Fransisco Eddy MD [address] [place] [address] 525415 03/29/2025 3:40 PM CDT Office Visit [address] [phone] Alfreda Ray PA-C [address] [place] [address] [phone] documented as of this encounter Visit Diagnoses Diagnosis HTN, goal below 140/90 Unspecified essential hypertension HTN (hypertension), benign Essential hypertension, benign Insomnia, unspecified type documented in this encounter Additional Health Concerns Infection Onset Date Last Indicated Resolved Time Rule Out COVID-19 05/08/2021 05/08/2021 05/09/2021 9:08 PM BATCH TRUCKER Assessment Noted Time PHQ-9 Depression Total Score: 1 04/05/20 7:16 AM CDT documented as of this encounter Care Teams Printmaker Relationship Specialty Start Date End Date Esperanza Gatica MD PCP - General Family Practice 10/13/11 12/29/21 [place] [address] [place] [address] PCP - Assigned PCP 12/05/17 08/23/18 Alfreda Ray PA-C [address] [place] [address], [place] [address] PCP - General Family Medicine 12/30/21 [place] [address] [place] [address] Assigned PCP 12/05/17 09/30/19 [place] [address] [place] [address] Assigned PCP 10/01/19 03/02/20 [place] [address] [place] [address] Assigned PCP 03/03/20 05/25/20 [place] [address] [place] [address] Assigned PCP 05/26/20 09/28/20 [place] [address] [place] [address] Assigned PCP 09/29/20 07/31/22 Jesú[place] [address] [address] Assigned Musculoskeletal Provider 10/20/20 04/17/22 Alfreda Ray PA-C [address] [place] [address] 853662 Referring Physician Family Medicine 12/31/21 Katrin Orellana PA-C [address] [place] [address] [phone] Physician Level Designer Dermatology 12/31/21 Shanna Vang PA-C [address] 424024 Assigned Cancer Care Provider 01/10/22 Fransisco Eddy MD [address] [place] [address] 447835 Assigned Rheumatology Provider 05/09/22 [place] [address] [address] [address] Assigned Pain Medication Provider 06/29/22 09/04/22 [place] [address] [address] [address] Assigned PCP 08/15/22 08/28/22 Katrin Orellana PA-C [address] [place] [address] 567585 Assigned Surgical Provider 08/15/22 02/10/24 Cristina Hsieh, [facility] [address] [facility] [place]NA[place]DEZ [address] Pharmacist Pharmacist 09/07/22 Alfreda Ray PA-C [address] [place] [address] 315782 Assigned Pain Medication Provider 09/05/22 09/10/23 Alfreda Ray PA-C [address] [place] [address] 098362 Assigned PCP 08/29/22 Cristina Hsieh, [facility] [address] [address] Assigned MTM Pharmacist 09/26/22 Dakota Tatum MD [address] [place] [address] Cardiovascular Disease 03/25/23 Dakota Tatum MD [address] [place] [address] Assigned Heart and Vascular Provider 05/01/23 [place] [address] [address], [facility] [address] [place] [address] Assigned Musculoskeletal Provider 04/12/24 documented as of this encounter
--- OUTSIDE RECORDS SUMMARY | 2024-06-22 23:12 | XMS_ITS | Encounter Summary ---
Author Organization [place] Address [address] [place] [address] Care Team Providers Care Project Facilitator Name Role Phone Esperanza Gatica MD Primary Care Provider + Esperanza Gatica MD Unavailable +[phone] Esperanza Gatica MD Unavailable +[phone] Esperanza Gatica MD Unavailable +[phone] Esperanza Gatica MD Unavailable +[phone] Esperanza Gatica MD Unavailable +[phone] Esperanza Gatica MD Unavailable +[phone] Jesús Orourke MD Unavailable Alfreda RayC Primary Care Provider + Alfreda Ray PA-C Unavailable + [phone] Katrin Orellana PA-C Unavailable [phone] Shanna VangC Unavailable +[phone] Fransisco Eddy MD Unavailable [phone] Esperanza Gtaica MD Unavailable +[phone] Esperanza Gatica MD Unavailable +[phone] Katrin Orellana PA-C Unavailable [phone] Cristina Hsieh [facility] Unavailable RayAlfreda PA-C Unavailable Ho Raymustapha Liu PA-C Unavailable [phone] Cristina Hsieh [facility] Unavailable Dakota Tatum MD Unavailable Dakota Tatum MD Unavailable Srinivas Marie DO Unavailable [phone] Reason for Visit * Reason Onset Date Comments Medication Question 05/10/2018 Encounter Details Date Type Department Care Team (Late st Contact Info) Description 05/10/2018 MyC Medical Advice [address], [address] [place] [address] [place] [address] [place] [address] Medication Question Social History Tobacco Use Types Packs/Day Years Used Date Smoking Tobacco: Former Cigarettes 1 5 0 06/21/1963 - 06/21/1968 Smokeless Tobacco: Never Comments:not a smoker Alcohol Use Standard Drinks/Week Comments Yes 0 (1 standard drink = 0.6 oz pure alcohol) Very occasionally - 2 per month Comments No Sex and Gender Information Value Date Recorded Sex Assigned at Female 08/17/2018 7:56 AM [place] MACHINE OPERATOR Legal Sex Female 4:24 AM [place] MACHINE OPERATOR Gender Identity Female 08/17/2018 7:56 AM [place] MACHINE OPERATOR Sexual Orientation Straight 08/17/2018 7: 56 AM [place] MACHINE OPERATOR documented as of this encounter Miscellaneous Notes * Telephone Encounter - Leigha Rinaldi RN - 05/10/2018 3:41 PM CST SOLID WASTE MANAGER checked 05/10/2018: Does not reflect that patient received rx's. 04/15/2018 GABAPENTIN 100 MG CAPSULE 120.00 04/04/2018 TEMAZEPAM 7.5 MG CAPSULE 30.00 04/04/2018 TRAMADOL HCL 50 MG TABLET 180.00 Leigha Rinaldi RN SBURY MACHINE OPERATOR documented in this encounter Plan of Treatment Upcoming Encounters Date Type Department Care Team (Late st Contact Info) Description 09/07/2024 10:00 AM CDT Office Visit [facility] [address] [place] [phone] Fransisco Eddy MD [address] [place] [address] 548405 03/29/2025 3:40 PM CDT Office Visit [address] [phone] Alfreda Ray PA-C [address] [place] [address] 833552 documented as of this encounter Visit Diagnoses Not on filedocumented in this encounter Additional Health Concerns Infection Onset Date Last Indicated Resolved Time Rule Out COVID-19 05/08/2021 05/08/2021 05/09/2021 9:08 PM [place]ING[place] MACHINE OPERATOR Assessment Noted Time PHQ-9 Depression Total Score: 1 04/05/20 18 7:16 AM CDT documented as of this encounter Care Teams Project Facilitator Relationship Specialty Start Date End Date Esperanza Gatica MD PCP - General Family Practice 10/13/11 12/29/21 [place] [address] [place] [address] PCP - Assigned PCP 12/05/17 08/23/18 Alfreda Ray PA-C [address] [place] [address] 119832 PCP - General Family Medicine 12/30/21 [place] [address] [place] [address] Assigned PCP 12/05/17 09/30/19 [place] [address] [place] [address] Assigned PCP 10/01/19 03/02/20 [place] [address] [place] [address] Assigned PCP 03/03/20 05/25/20 [place] [address] [place] [address] Assigned PCP 05/26/20 09/28/20 [place] [address] [place] [address] Assigned PCP 09/29/20 07/31/22 Jesú[place] [address] [place] [address] Assigned Musculoskeletal Provider 10/20/20 04/17/22 Alfreda Ray PA-C [address] [place] [address] [phone] Referring Physician Family Medicine 12/31/21 Katrin Orellana PA-C [address] [address] Physician Office Runner Dermatology 12/31/21 Shanna Vang PA-C [address] [place] [address] Assigned Cancer Care Provider 01/10/22 Fransisco Eddy MD [address] [place] [address] 88 [place] [address] Assigned Rheumatology Provider 05/09/22 [place] [address] [place] [address] Assigned Pain Medication Provider 06/29/22 09/04/22 [place] [address] [place] [address] Assigned PCP 08/15/22 08/28/22 Katrin Orellana PA-C [address] [place] [address] [phone] Assigned Surgical Provider 08/15/22 02/10/24 Cristina Hsieh [facility] [address] [place] [address] [place] HERNANDEZ [address] Pharmacist Pharmacist 09/07/22 Alfreda Ray PA-C [address] [place] [address] [phone] Assigned Pain Medication Provider 09/05/22 09/10/23 Alfreda Ray PA-C [address] [place] [address] 185112 Assigned PCP 08/29/22 Cristina Hsieh, [facility] [address] [facility] [address] [place] [address] Assigned MTM Pharmacist 09/26/22 Dakota Tatum MD [address] [place] [address] 888535 Cardiovascular Disease 03/25/23 Dakota Tatum MD [address] [place] [address] 389525 Assigned Heart and Vascular Provider 05/01/23 [place] [address] [address], [facility] [address] [place] [address] Assigned Musculoskeletal Provider 04/12/24 documented as of this encounter
--- OUTSIDE RECORDS SUMMARY | 2024-06-22 23:12 | XMS_ITS | Encounter Summary ---
Author Organization [facility] Address [address] [place] [address] Care Team Providers Care Ob Nurse Name Role Phone Esperanza Gatica MD Primary Care Provider + Esperanza Gatica MD Unavailable +[phone] Esperanza Gtaica MD Unavailable +356 Esperanza Gatica MD Unavailable +544 Esperanza Gatica MD Unavailable +099 Esperanza Gatica MD Unavailable +585 Esperanza Gatica MD Unavailable +[phone] Jesús Orourke MD Unavailable Alfreda RayC Primary Care Provider + Alfreda Ray PA-C Unavailable + [phone] Katrin Orellana PA-C Unavailable +[phone] Shanna VangC Unavailable +[phone] Fransisco Eddy MD Unavailable +[phone] Esperanza Gatica MD Unavailable +[phone] Esperanza Gatica MD Unavailable +[phone] Katrin Orellana PA-C Unavailable Cristina Hsieh [facility] Unavailable RayAlfreda PA-C Unavailable +[phone] Cory Alfreda Liu PA-C Unavailable +[phone] Cristina Hsieh [facility] Unavailable Dakota Tatum MD Unavailable Dakota Tatum MD Unavailable Srinivas Marie DO Unavailable [phone] Encounter Details Date Type Department Care Team (Late st Contact Info) Description 12/16/2017 MyC Medical Advice [address], [address] [place] [address] [place] [address] [place] [address] Social History Tobacco Use Types [...] Sex Assigned at Female 08/17/2018 7:56 AM COPPER MINER Legal Sex Female 4:24 AM COPPER MINER Gender Identity Female 08/17/2018 7:56 AM COPPER MINER Sexual Orientation Straight 08/17/2018 7: 56 AM COPPER MINER documented as of this encounter Plan of Treatment Upcoming Encounters Date Type Department Care Team (Late st Contact Info) Description 09/07/2024 10:00 AM CDT Office Visit [facility] [address] [address] Fransisco Eddy MD [address] [place] [address] 03/29/2025 3:40 PM CDT Office Visit [address] [address] Alfreda Ray PA-C [address] [place] [address] 289462 documented as of this encounter Visit Diagnoses Not on filedocumented in this encounter Additional Health Concerns Infection Onset Date Last Indicated Resolved Time Rule Out COVID-19 05/08/2021 05/08/2021 05/09/2021 9:08 PM COPPER MINER Assessment Noted Time PHQ-9 Depression Total Score: 1 12/01/19 18 7:11 AM CDT documented as of this encounter Care Teams Ob Nurse Relationship Specialty Start Date End Date Esperanza Gatica MD PCP - General Family Practice 10/13/11 12/29/21 [place] [address] [address] [address] PCP - Assigned PCP 12/05/17 08/23/18 Alfreda Ray PA-C [address] [place] [address] PCP - General Family Medicine 12/30/21 [place] [address] [address] [address] Assigned PCP 12/05/17 09/30/19 [place] [address] [address] [address] Assigned PCP 10/01/19 03/02/20 [place] [address] [place] [address] Assigned PCP 03/03/20 05/25/20 [place] [address] [place] [address] Assigned PCP 05/26/20 09/28/20 [place] [address] [place] [address] Assigned PCP 09/29/20 07/31/22 Jesú[place] [address] [place] [place] [address] Assigned Musculoskeletal Provider 10/20/20 04/17/22 Alfreda Ray PA-C [address] [place] [address] 115992 Referring Physician Family Medicine 12/31/21 Katrin Orellana PA-C [address] [place] [address] 616325 Physician Housing Inspectors Dermatology 12/31/21 Shanna Vang PA-C [address] [place] [address] Assigned Cancer Care Provider 01/10/22 Fransisco Eddy MD [address] [place] [address] 935515 Assigned Rheumatology Provider 05/09/22 [place] [address] [place] [address] Assigned Pain Medication Provider 06/29/22 09/04/22 [place] [address] [place] [address] Assigned PCP 08/15/22 08/28/22 Katrin Orellana PA-C [address] [place] [address] [address] [place], [place] 607115 Assigned Surgical Provider 08/15/22 02/10/24 Cristina Hsieh, [facility] [address] [facility] [place] [address] Pharmacist Pharmacist 09/07/22 Alfreda Ray PA-C [address] [place] [address] 700482 Assigned Pain Medication Provider 09/05/22 09/10/23 Alfreda Ray PA-C [address] [place] [address]69 Assigned PCP 08/29/22 Cristina Hsieh, [facility] [address] [address] Assigned MTM Pharmacist 09/26/22 Dakota Tatum MD [address] [place] [address] Cardiovascular Disease 03/25/23 Dakota Tatum MD [address] [place] [address] Assigned Heart and Vascular Provider 05/01/23 [place] [address] [address], [address] [address] Assigned Musculoskeletal Provider 04/12/24 documented as of this encounter
--- OUTSIDE RECORDS SUMMARY | 2024-06-22 23:12 | XMS_ITS | Encounter Summary ---
Author Organization [facility] Address [address] [place] [address] Care Team Providers Care Flight Engineer Instructor Name Role Phone Esperanza Gatica MD Primary Care Provider + Esperanza Gatica MD Unavailable +[phone] Esperanza Gatica MD Unavailable +[phone] Esperanza Gatica MD Unavailable +097 Esperanza Gatica MD Unavailable +[phone] Esperanza Gatica MD Unavailable +[phone] Esperanza Gatica MD Unavailable +[phone] Jesús Orourke MD Unavailable Alfreda RayC Primary Care Provider + Alfreda Ray PA-C Unavailable + [phone] Katrin Orellana PA-C Unavailable [phone] Shanna VangC Unavailable +[phone] Fransisco Eddy MD Unavailable [phone] Esperanza Gatica MD Unavailable +[phone] Esperanza Gatica MD Unavailable +[phone] Katrin Orellana PA-C Unavailable Cristina Hsieh [facility] Unavailable RayAlfreda PA-C Unavailable +[phone] Cory Alfreda Liu PA-C Unavailable +[phone] Cristina Hsieh [facility] Unavailable +[phone] Dakota Tatum MD Unavailable [phone] Dakota Tatum MD Unavailable [phone] Srinivas Marie DO Unavailable [phone] Reason for Visit * Reason Onset Date Comments Medication Refill 07/27/2018 gabapentin (NE URONTIN) 100 MG capsule Encounter Details Date Type Department Care Team (Late st Contact Info) Description 07/26/[address], [address] [place] [address] [place] [address] [place] [address] Medication Refill (gabapentin (NEURONTIN) 100 MG capsule) Social History Tobacco Use Types Packs/Day Years [...] Sex Assigned at Female 08/17/2018 7:56 AM ACCREDITED FARM MANAGER Legal Sex Female 4:24 AM ACCREDITED FARM MANAGER Gender Identity Female 08/17/2018 7:56 AM ACCREDITED FARM MANAGER Sexual Orientation Straight 08/17/2018 7: 56 AM ACCREDITED FARM MANAGER documented as of this encounter Miscellaneous Notes * Telephone Encounter - WhitakerYohan - 07/26/2018 5:59 PM CST gabapentin (NEURONTIN) 100 MG capsule Last Written Prescription Date: 05/05/18 Last Fill Quantity: 180 CAPSULE, # refills: 0 Last Office Visit: 04/04/18 WITH TERA Future Office visit: Next 5 appointments (look out 90 days) Aug 19, 2018 11:00 AM ACCREDITED FARM MANAGER PHYSICAL with Esperanza Gatica MD [facility] [address] [place] [address] [address] [facility] [phone] Routing refill request to provider for review/approval because: Drug not on the FMG, UMP or Health refill protocol or controlled substance EDITED FARM MANAGER documented in this encounter Plan of Treatment Upcoming Encounters Date Type Department Care Team (Late st Contact Info) Description 09/07/2024 10:00 AM CDT Office Visit [facility] [address] [place] [phone] Fransisco Eddy MD [address] [place] [address] 827965 03/29/2025 3:40 PM CDT Office Visit [address] [phone] Alfreda Ray PA-C [address] [place] [address] 064252 documented as of this encounter Visit Diagnoses Diagnosis Primary osteoarthritis involving multiple joints documented in this encounter Additional Health Concerns Infection Onset Date Last Indicated Resolved Time Rule Out COVID-19 05/08/2021 05/08/2021 05/09/2021 9:08 PM ACCREDITED FARM MANAGER Assessment Noted Time PHQ-9 Depression Total Score: 1 04/05/20 18 7:16 AM CDT documented as of this encounter Care Teams Flight Engineer Instructor Relationship Specialty Start Date End Date Esperanza Gatica MD PCP - General Family Practice 10/13/11 12/29/21 [place] [address] [place] [address] PCP - Assigned PCP 12/05/17 08/23/18 Alfreda Ray PA-C [address] [place] [address] PCP - General Family Medicine 12/30/21 [place] [address] [place] [address] Assigned PCP 12/05/17 09/30/19 [place] [address] [place] [address] Assigned PCP 10/01/19 03/02/20 [place] [address] [place] [place] [address] Assigned PCP 03/03/20 05/25/20 [place] [address] [place] [address] Assigned PCP 05/26/20 09/28/20 [place] [address] [address] [place] [address] Assigned PCP 09/29/20 07/31/22 [place] [address] [place] [address] Assigned Musculoskeletal Provider 10/20/20 04/17/22 Alfreda Ray PA-C [address] [place] [address] 118332 Referring Physician Family Medicine 12/31/21 Katrin Orellana PA-C [address] [place] [address] 918945 Physician Heater Mechanic Dermatology 12/31/21 Shanna Vang PA-C [address] [place] [address] 800564 Assigned Cancer Care Provider 01/10/22 Fransisco Eddy MD [address] [place] [address] 371045 Assigned Rheumatology Provider 05/09/22 [place] [address] [address] [address] Assigned Pain Medication Provider 06/29/22 09/04/22 [place] [address] [address] [address] Assigned PCP 08/15/22 08/28/22 Katrin Orellana PA-C [address] [place] [address] 098125 Assigned Surgical Provider 08/15/22 02/10/24 Cristina Hsieh [facility] [address] [facility] LISBETH [place]Z [address] Pharmacist Pharmacist 09/07/22 Alfreda Ray PA-C [address] [place] [address] Assigned Pain Medication Provider 09/05/22 09/10/23 Alfreda Ray PA-C [address] [place] [address] Assigned PCP 08/29/22 Cristina Hsieh, [facility] [address] [address] Assigned MTM Pharmacist 09/26/22 Dakota Tatum MD [address] [place] [address] Cardiovascular Disease 03/25/23 Dakota Tatum MD [address] [place] [address] 850215 Assigned Heart and Vascular Provider 05/01/23 [place] [address] [address] , [address] [address] Assigned Musculoskeletal Provider 04/12/24 documented as of this encounter
--- OUTSIDE RECORDS SUMMARY | 2024-06-22 23:12 | XMS_ITS | Encounter Summary ---
Author Organization [facility] Address [address] [place] [address] Care Team Providers Care Steel Barrel Reamer Name Role Phone Esperanza Gatica MD Primary Care Provider + Esperanza Gatica MD Unavailable +[phone] Esperanza Gatica MD Unavailable +[phone] Esperanza Gatica MD Unavailable +[phone] Esperanza Gatica MD Unavailable +[phone] Esperanza Gatica MD Unavailable +086 Esperanza Gatica MD Unavailable +[phone] Jesús Orourke MD Unavailable Alfreda RayC Primary Care Provider + Alfreda Ray PA-C Unavailable + [phone] Katrin Orellana PA-C Unavailable [phone] Shanna VangC Unavailable +[phone] Fransisco Eddy MD Unavailable [phone] Esperanza Gatica MD Unavailable +[phone] Esperanza Gatica MD Unavailable +[phone] Katrin Orellana PA-C Unavailable [phone] Cristina Hsieh [facility] Unavailable Alfreda Ray Alexa KING Unavailable Alfreda Ray Alexa KING Unavailable [phone] Cristina Hsieh [facility] Unavailable Dakota Tatum MD Unavailable Dakota Tatum MD Unavailable Srinivas Marie DO Unavailable [phone] Reason for Visit * Reason Onset Date Comments Imm/Inj 08/19/2018 Shingrix Encounter Details Date Type Department Care Team (Late st Contact Info) Description 08/19/2018 MyC Medical Advice [place] [address] [facility], [address] [place] [address] [place] [address] [place] [address] Imm/Inj (Shingrix) Social History Tobacco Use Types Packs/Day Years [...] Sex Assigned at Female 08/17/2018 7:56 AM ORE FEEDER Legal Sex Female 4:24 AM ORE FEEDER Gender Identity Female 08/17/2018 7:56 AM ORE FEEDER Sexual Orientation Straight 08/17/2018 7: 56 AM ORE FEEDER documented as of this encounter Plan of Treatment Upcoming Encounters Date Type Department Care Team (Late st Contact Info) Description 09/07/2024 10:00 AM CDT Office Visit [address] [place] [address] Fransisco Eddy MD [address] [place] [address] 03/29/2025 3:40 PM CDT Office Visit [facility] [address] [place] [phone] Alfreda Ray PA-C [address] [place] [address] 702332 documented as of this encounter Visit Diagnoses Not on filedocumented in this encounter Additional Health Concerns Infection Onset Date Last Indicated Resolved Time Rule Out COVID-19 05/08/2021 05/08/2021 05/09/2021 9:08 PM ORE FEEDER Assessment Noted Time PHQ-9 Depression Total Score: 1 08/20/19 1:44 PM ORE FEEDER documented as of this encounter Care Teams Steel Barrel Reamer Relationship Specialty Start Date End Date Esperanza Gatica MD PCP - General Family Practice 10/13/11 12/29/21 [place] [address] [address] [address] PCP - Assigned PCP 12/05/17 08/23/18 Alfreda Ray PA-C [address] [place] [address] PCP - General Family Medicine 12/30/21 [place] [address] [address] [address] Assigned PCP 12/05/17 09/30/19 [place] [address] [address] [address] Assigned PCP 10/01/19 03/02/20 [place] [address] [place] [address] Assigned PCP 03/03/20 05/25/20 [place] [address] [place] [address] Assigned PCP 05/26/20 09/28/20 [place] [address] [place] [address] Assigned PCP 09/29/20 07/31/22 [place] [address] [place] [address] [address] Assigned Musculoskeletal Provider 10/20/20 04/17/22 Alfreda Ray PA-C [address] [place] [address] 322922 Referring Physician Family Medicine 12/31/21 Katrin Orellana PA-C [address] [place] [address] 960655 Physician Public Policy Mediator Dermatology 12/31/21 Shanna Vang PA-C [address] [place] [address] 285514 Assigned Cancer Care Provider 01/10/22 Fransisco Eddy MD [address] [place] [address] 862475 Assigned Rheumatology Provider 05/09/22 [place] [address] [address] [place] [address] Assigned Pain Medication Provider 06/29/22 09/04/22 [place] [address] [place] [address] Assigned PCP 08/15/22 08/28/22 Katrin Orellana PA-C [address] [place] [address] 398155 Assigned Surgical Provider 08/15/22 02/10/24 Cristina Hsieh [facility] [address] [place] [address] LISBETH HERNANDEZ [address] Pharmacist Pharmacist 09/07/22 Alfreda Ray PA-C [address] [place] [address] 725792 Assigned Pain Medication Provider 09/05/22 09/10/23 Alfreda Ray PA-C [address] [place] [address] Assigned PCP 08/29/22 Cristina Hsieh [facility] [address] [id number] Assigned MTM Pharmacist 09/26/22 Dakota Tatum MD [address] [place] [address] Cardiovascular Disease 03/25/23 Dakota Tatum MD [address] [place], [place] 217395 Assigned Heart and Vascular Provider 05/01/23 [place] [address] [address], [address] [address] Assigned Musculoskeletal Provider 04/12/24 documented as of this encounter
--- OUTSIDE RECORDS SUMMARY | 2024-06-22 23:12 | XMS_ITS | Encounter Summary ---
Author Organization [facility] Address [address] [place] [address] Care Team Providers Care Passenger Car Cleaning Supervisor Name Role Phone Esperanza Gatica MD Primary Care Provider + Esperanza Gatica MD Unavailable + Esperanza Gatica MD Unavailable + Esperanza Gatica MD Unavailable + Esperanza Gatica MD Unavailable + Esperanza Gatica MD Unavailable + Jesús Orourke MD Unavailable Alfreda Ray-C Primary Care Provider + Alfreda Ray-C Unavailable + [phone] Katrin OrellanaC Unavailable +[phone] Shanna Vang-C Unavailable +[phone] Fransisco Eddy MD Unavailable +[phone] Esperanza Gatica MD Unavailable + Esperanza Gatica MD Unavailable + Katrin OrellanaC Unavailable +[phone] Cristina Hsieh [facility] Unavailable +[phone] Ray, Alfreda Liu PA-C Unavailable +[phone] Ray, Alfreda Liu PA-C Unavailable +[phone] Cristina Hsieh [facility] Unavailable +[phone] Dakota Tatum MD Unavailable +[phone] Dakota Tatum MD Unavailable +[phone] Srinivas Marie DO Unavailable [phone] Reason for Visit * Reason Onset Date Comments Medication Refill 02/21/2019 atenolol (TENO RMIN) 25 MG tablet Encounter Details Date Type Department Care Team (Late st Contact Info) Description 02/18/[address], [address] [place] [address] [place] [address] [place] [address] Medication Refill (atenolol (TENORMIN) 25 MG tablet) Social History Tobacco Use Types [...] Sex Assigned at Female 08/17/2018 7:56 AM HOUSECLEANER FLOOR Legal Sex Female 4:24 AM HOUSECLEANER FLOOR Gender Identity Female 08/17/2018 7:56 AM HOUSECLEANER FLOOR Sexual Orientation Straight 08/17/2018 7: 56 AM HOUSECLEANER FLOOR documented as of this encounter Miscellaneous Notes * Telephone Encounter - Yamile Otero RN - 02/22/2019 9:45 AM CDT Images from the original note were not included. Provider filled on 02/21/2019 Vandana Otero RN Patient Care Electronic Test Technician [facility] [phone] * Telephone Encounter - Diya Stone - 02/21/2019 10:56 AM CDT Images from the original note were not included. Requested Prescriptions Pending Prescriptions Disp Refills ??? atenolol (TENORMIN) 25 MG tablet [Pharmacy Med Name: ATENOLOL 25MG TABS] 90 tablet 0 Sig: TAKE ONE TABLET BY MOUTH EVERY MORNING Last Written Prescription Date: 11/22/18 Last Fill Quantity: 90, # refills: 0 Last Office Visit: 08/19/2018 En Return in about 2 months (around 10/19/2018). Future Office Visit: Next 5 appointments (look out 90 days) Feb 21, 2019 11:00 AM CDT Office Visit with Esperanza Gatica MD [facility] [address] [place] [address], [address] [facility] [address] Beta-Blockers Protocol Passed - 02/18/2019 2:54 PM Passed - Blood pressure under 140/90 in past 12 months BP Readings from Last 3 Encounters: 09/02/18 128/64 08/19/18 168/74 04/04/18 134/70 Passed - Patient is age 8 or [...] - Medication is active on med list documented in this encounter Plan of Treatment Upcoming Encounters Date Type Department Care Team (Late st Contact Info) Description 09/07/2024 10:00 AM CDT Office Visit [address] [place] [address] Fransisco Eddy MD [address] [place] [address] 03/29/2025 3:40 PM CDT Office Visit [address] [phone] Alfreda Ray PA-C [address] [place] [address] documented as of this encounter Visit Diagnoses Diagnosis HTN, goal below 140/90 Unspecified essential hypertension documented in this encounter Additional Health Concerns Infection Onset Date Last Indicated Resolved Time Rule Out COVID-19 05/08/2021 05/08/2021 05/09/2021 9:08 PM HOUSECLEANER FLOOR Assessment Noted Time PHQ-9 Depression Total Score: 1 08/20/19 1:44 PM HOUSECLEANER FLOOR documented as of this encounter Care Teams Passenger Car Cleaning Supervisor Relationship Specialty Start Date End Date Esperanza Gatica MD PCP - General Family Practice 10/13/11 12/29/21 Alfreda Ray PA-C [address] [place] [address] 386232 PCP - General Family Medicine 12/30/21 [place] [address] [address] [address] Assigned PCP 12/05/17 09/30/19 [place] [address] [address] [address] Assigned PCP 10/01/19 03/02/20 [place] [address] [address] [address] Assigned PCP 03/03/20 05/25/20 [place] [address] [address] [place] [id number] Assigned PCP 05/26/20 09/28/20 [place] [address] [address] [address] Assigned PCP 09/29/20 07/31/22 [place] [address] [facility] [place] [address] Assigned Musculoskeletal Provider 10/20/20 04/17/22 Alfreda Ray PA-C [address] [place] [address] 356672 Referring Physician Family Medicine 12/31/21 Katrin Orellana PA-C [address] [place] [address] Physician Title Inspector Dermatology 12/31/21 Shanna Vang PA-C [facility] [place] [address] Assigned Cancer Care Provider 01/10/22 Fransisco Eddy MD [address] [place] [address] [phone] Assigned Rheumatology Provider 05/09/22 [place] [address] [address] [address] Assigned Pain Medication Provider 06/29/22 09/04/22 [place] [address] [place] [address] Assigned PCP 08/15/22 08/28/22 Katrin Orellana PA-C [address] [place] [address] Assigned Surgical Provider 08/15/22 02/10/24 Cristina Hsieh [facility] [address] [place] [address] [place] [address] Pharmacist Pharmacist 09/07/22 Alfreda Ray PA-C [address] [place] [address] Assigned Pain Medication Provider 09/05/22 09/10/23 Alfreda Ray PA-C [address] [place] [address] Assigned PCP 08/29/22 Cristina Hsieh [facility] [address] [place] [address] Assigned MTM Pharmacist 09/26/22 Dakota Tatum MD [address] [place] [address] 805495 Cardiovascular Disease 03/25/23 Dakota Tatum MD [address] [place] [address] 267985 Assigned Heart and Vascular Provider 05/01/23 [place] [address] [address], [address] [address] Assigned Musculoskeletal Provider 04/12/24 documented as of this encounter
--- OUTSIDE RECORDS SUMMARY | 2024-06-22 23:13 | XMS_ITS | Encounter Summary ---
Author Organization [facility] Address [address] [place] [address] Care Team Providers Care Commodity Loan Clerk Name Role Phone Esperanza Gatica MD Primary Care Provider + Esperanza Gatica MD Unavailable +[phone] Esperanza Gatica MD Unavailable +[phone] Esperanza Gatica MD Unavailable +[phone] Esperanza Gatica MD Unavailable +[phone] Esperanza Gatica MD Unavailable +[phone] Esperanza Gatica MD Unavailable +[phone] Jesús Orourke MD Unavailable Alfreda RayC Primary Care Provider + Alfreda Ray PA-C Unavailable + [phone] Katrin Orellana PA-C Unavailable +[phone] Shanna VangC Unavailable +[phone] Fransisco Eddy MD Unavailable +[phone] Esperanza Gatica MD Unavailable +[phone] Esperanza Gatica MD Unavailable +[phone] Katrin Orellana PA-C Unavailable [phone] Cristina Hsieh [facility] Unavailable Cory Alfreda Liu PA-C Unavailable Alfreda Ray Alexa KING Unavailable +[phone] Cristina Hsieh [facility] Unavailable Dakota Tatum MD Unavailable Dakota Tatum MD Unavailable Srinivas Marie DO Unavailable [phone] Reason for Visit * Reason Onset Date Comments Medication Refill 08/12/2017 traZODone and temazepam Encounter Details Date Type Department Care Team (Late st Contact Info) Description 08/12/[address], [address] [place] [address] [place] [address] [place] [address] Medication Refill (traZODone and temazepam ) Social History Tobacco Use Types Packs/Day Years Used Date Smoking Tobacco: Former Cigarettes 1 5 0 06/21/1963 - 06/21/1968 Smokeless Tobacco: Former Comments:not a smoker Alcohol Use Standard Drinks/Week Comments Yes 0 (1 standard drink = 0.6 oz pure alcohol) Very occasionally - 2 per month Comments No Sex and Gender Information Value Date Recorded Sex Assigned at Female 08/17/2018 7:56 AM PRESS OFFICER Legal Sex Female 4:24 AM PRESS OFFICER Gender Identity Female 08/17/2018 7:56 AM PRESS OFFICER Sexual Orientation Straight 08/17/2018 7: 56 AM PRESS OFFICER documented as of this encounter Miscellaneous Notes * Telephone Encounter - Jacqui Whiteside CMA - 08/13/2017 4:22 PM PRESS OFFICER Faxed temazepam to [facility] pharmacy at [phone]. Jacqui Whiteside CMA S OFFICER * Telephone Encounter - Leigha Rinaldi RN - 08/13/2017 3:20 PM CST .Routing refill request to provider for review/approval because: Drug not on the [facility] refill protocol : TEMAZEPAM Leigha Rinaldi RN S OFFICER * Telephone Encounter - Diya Stone - 08/12/2017 2:22 PM CST traZODone (DESYREL) 50 MG tablet Sig: Take 1 capsule (7.5 mg) by mouth nightly as needed for sleep Last Written Prescription Date: 04/22/17 Last Fill Quantity: 30, # refills: 3 Last Office Visit with [facility], [facility] or [facility] prescribing provider: 07/02/2017 Routing refill request to provider for review/approval because: Drug not on the [facility], [facility] or [facility] refill protocol or controlled substance Requested Prescriptions Pending Prescriptions Disp Refills ??? traZODone (DESYREL) 50 MG tablet [Pharmacy Med Name: TRAZODONE HCL 50MG TABS] 90 tablet 3 Last Written Prescription Date: 05/17/17 Last Fill Quantity: 90, # refills: 3 Last Office Visit: 07/02/2017 Future Office Visit: Sig: TAKE ONE TABLET BY MOUTH AT BEDTIME NEEDED FOR SLEEP Serotonin Modulators Passed 08/12/2017 12:43 PM Passed - Recent or future visit with authorizing provider's specialty Patient had office visit in the last year or has a visit in the next 30 days with authorizing provider. See Patient Info tab in inbasket, or Choose Columns in Meds & Orders section of the refill encounter. Passed - Patient is age 18 or older Passed - No active on record Passed - No positive test in past 12 months S OFFICER documented in this encounter Plan of Treatment Upcoming Encounters Date Type Department Care Team (Late st Contact Info) Description 09/07/2024 10:00 AM CDT Office Visit [facility] [address] [place] [phone] Fransisco Eddy MD [address] [place] [address] 005375 03/29/2025 3:40 PM CDT Office Visit [address] [phone] Alfreda Ray PA-C [address] [place] [address] 518892 documented as of this encounter Visit Diagnoses Diagnosis Insomnia, unspecified type documented in this encounter Additional Health Concerns Infection Onset Date Last Indicated Resolved Time Rule Out COVID-19 05/08/2021 05/08/2021 05/09/2021 9:08 PM PRESS OFFICER Assessment Noted Time PHQ-9 Depression Total Score: 0 08/18/19 17 7:09 AM PRESS OFFICER documented as of this encounter Care Teams Commodity Loan Clerk Relationship Specialty Start Date End Date Esperanza Gatica MD PCP - General Family Practice 10/13/11 12/29/21 [place] [address] [place] [address] PCP - Assigned PCP 12/05/17 08/23/18 Alfreda Ray PA-C [address] [place] [address] PCP - General Family Medicine 12/30/21 [place] [address] [place] [address] Assigned PCP 12/05/17 09/30/19 [place] [address] [place] [address] Assigned PCP 10/01/19 03/02/20 [place] [address] [place] [address] Assigned PCP 03/03/20 05/25/20 [place] [address] [place] [address] Assigned PCP 05/26/20 09/28/20 [place] [address] [place] [address] Assigned PCP 09/29/20 07/31/22 [place] [address] [place] [address] Assigned Musculoskeletal Provider 10/20/20 04/17/22 Alfreda Ray PA-C [address] [place], [place] 039422 Referring Physician Family Medicine 12/31/21 Katrin Orellana PA-C [address] [facility] 98 [place] [address] Physician Insurance Account Assistant Dermatology 12/31/21 Shanna Vang PA-C [address] [address] Assigned Cancer Care Provider 01/10/22 Fransisco Eddy MD [address] [place] [address] [address] [place] [address] Assigned Rheumatology Provider 05/09/22 [place] [address] [place] [address] Assigned Pain Medication Provider 06/29/22 09/04/22 [place] [address] [place] [address] Assigned PCP 08/15/22 08/28/22 Katrin Orellana PA-C [address] [place] [address] [address] [place] [address] Assigned Surgical Provider 08/15/22 02/10/24 Cristina Hsieh, [facility] [address] [facility] [place] [address] Pharmacist Pharmacist 09/07/22 Alfreda Ray PA-C [address] [place] [address] 864572 Assigned Pain Medication Provider 09/05/22 09/10/23 Alfreda Ray PA-C [address] [place] [address] 937582 Assigned PCP 08/29/22 Cristina Hsieh, [facility] [address] [facility] [address] [place] [address] Assigned MTM Pharmacist 09/26/22 Dakota Tatum MD [address] [place] [address] 967095 Cardiovascular Disease 03/25/23 Dakota Tatum MD [address] [place] [address] 593835 Assigned Heart and Vascular Provider 05/01/23 [place] [address] [address], [facility] [address] [place] [address] Assigned Musculoskeletal Provider 04/12/24 documented as of this encounter
--- OUTSIDE RECORDS SUMMARY | 2024-06-22 23:13 | XMS_ITS | Encounter Summary ---
Author Organization [facility] Address [address] [place] [address] Care Team Providers Care Space Scheduler Name Role Phone Esperanza Gatica MD Primary Care Provider + Esperanza Gatica MD Unavailable +[phone] Esperanza Gatica MD Unavailable +[phone] Esperanza Gatica MD Unavailable +[phone] Esperanza Gatica MD Unavailable +[phone] Esperanza Gatica MD Unavailable +[phone] Esperanza Gatica MD Unavailable +[phone] Jesús Orourke MD Unavailable Alfreda RayC Primary Care Provider + Alfreda Ray PA-C Unavailable + [phone] Katrin Orellana PA-C Unavailable [phone] Shanna VangC Unavailable +[phone] Fransisco Eddy MD Unavailable [phone] Esperanza Gatica MD Unavailable +[phone] Esperanza Gatica MD Unavailable +[phone] Katrin Orellana PA-C Unavailable [phone] Cristina Hsieh [facility] Unavailable RayAlfreda PA-C Unavailable [phone] Cory Alfreda Liu PA-C Unavailable [phone] Cristina Hsieh [facility] Unavailable Dakota Tatum MD Unavailable Dakota Tatum MD Unavailable Srinivas Marie DO Unavailable [phone] Encounter Details Date Type Department Care Team (Late st Contact Info) Description 06/30/2016 MyC Medical Advice [address], [address] [place] [address] [place] [address] [place] [address] Social History Tobacco Use Types [...] Sex Assigned at Female 08/17/2018 7:56 AM BOX STAPLER Legal Sex Female 4:24 AM BOX STAPLER Gender Identity Female 08/17/2018 7:56 AM BOX STAPLER Sexual Orientation Straight 08/17/2018 7: 56 AM BOX STAPLER documented as of this encounter Plan of Treatment Upcoming Encounters Date Type Department Care Team (Late st Contact Info) Description 09/07/2024 10:00 AM CDT Office Visit [facility] [address] [address] Fransisco Eddy MD [address] [place] [address] 03/29/2025 3:40 PM CDT Office Visit [address] [address] Alfreda Ray PA-C [address] [place] [address] 889232 documented as of this encounter Visit Diagnoses Not on filedocumented in this encounter Additional Health Concerns Infection Onset Date Last Indicated Resolved Time Rule Out COVID-19 05/08/2021 05/08/2021 05/09/2021 9:08 PM BOX STAPLER Assessment Noted Time PHQ-9 Depression Total Score: 0 08/14/19 16 8:10 AM BOX STAPLER documented as of this encounter Care Teams Space Scheduler Relationship Specialty Start Date End Date Esperanza Gatica MD PCP - General Family Practice 10/13/11 12/29/21 [place] [address] [place] [address] PCP - Assigned PCP 12/05/17 08/23/18 Alfreda Ray PA-C [address] [place] [address] 058932 PCP - General Family Medicine 12/30/21 [place] [address] [address] [place] [address] Assigned PCP 12/05/17 09/30/19 [place] [address] [address] [place] [address] Assigned PCP 10/01/19 03/02/20 [place] [address] [place] [address] Assigned PCP 03/03/20 05/25/20 [place] [address] [place] [address] Assigned PCP 05/26/20 09/28/20 [place] [address] [place] [address] Assigned PCP 09/29/20 07/31/22 [place] [address] [address] [facility] [place] [address] Assigned Musculoskeletal Provider 10/20/20 04/17/22 Alfreda Ray PA-C [address] [place] [address] 840602 Referring Physician Family Medicine 12/31/21 Katrin Orellana PA-C [address] [place] [address] 130545 Physician Staff Radiation Therapist Dermatology 12/31/21 Shanna Vang PA-C [address] [place] [address] Assigned Cancer Care Provider 01/10/22 Fransisco Eddy MD [address] [place] [address] 514355 Assigned Rheumatology Provider 05/09/22 [place] [address] [place] [address] Assigned Pain Medication Provider 06/29/22 09/04/22 [place] [address] [place] [address] Assigned PCP 08/15/22 08/28/22 Katrin Orellana PA-C [address] [place] [address] 98 [place], [place] 768855 Assigned Surgical Provider 08/15/22 02/10/24 Cristina Hsieh [facility] [address] [facility] [place] [address] Pharmacist Pharmacist 09/07/22 Alfreda Ray PA-C [address] [place] [address] 945522 Assigned Pain Medication Provider 09/05/22 09/10/23 Alfreda Ray PA-C [address] [place] [address] Assigned PCP 08/29/22 Cristina Hsieh, [facility] [address] [address] Assigned MTM Pharmacist 09/26/22 Dakota Tatum MD [address] [place] [address] Cardiovascular Disease 03/25/23 Dakota Tatum MD [address] [place] [address] Assigned Heart and Vascular Provider 05/01/23 [place] [address] [address], [address] [address] Assigned Musculoskeletal Provider 04/12/24 documented as of this encounter
--- OUTSIDE RECORDS SUMMARY | 2024-06-22 23:13 | XMS_ITS | Encounter Summary ---
Author Organization [facility] Address [address] [place] [address] Care Team Providers Care Scheduling Analyst Name Role Phone Esperanza Gatica MD Primary Care Provider + Esperanza Gatica MD Unavailable +[phone] Esperanza Gatica MD Unavailable +[phone] Esperanza Gatica MD Unavailable +[phone] Esperanza Gatica MD Unavailable +[phone] Esperanza Gatica MD Unavailable +[phone] Esperanza Gatica MD Unavailable +[phone] Jesús Orourke MD Unavailable Alfreda RayC Primary Care Provider + Alfreda Ray PA-C Unavailable + [phone] Katrin Orellana PA-C Unavailable [phone] Shanna VangC Unavailable +[phone] Fransisco Eddy MD Unavailable [phone] Esperanza Gatica MD Unavailable +[phone] Esperanza Gatica MD Unavailable +[phone] Katrin Orellana PA-C Unavailable Cristina Hsieh [facility] Unavailable Cory Alfreda Liu PA-C Unavailable +[phone] Ho Raymustapha Liu PA-C Unavailable [phone] Cristina Hsieh [facility] Unavailable Dakota Tatum MD Unavailable Dakota Tatum MD Unavailable Srinivas Marie DO Unavailable [phone] Reason for Visit * Reason Onset Date Comments Sinus Problem 06/30/2016 Requesting antib iotic Encounter Details Date Type Department Care Team (Late st Contact Info) Description 06/30/2016 MyC Medical Advice [address], [facility] [address] [place] [address] [place] [address] [place] [address] Sinus Problem (Requesting antibiotic) Social History Tobacco Use Types Packs/Day Years Used Date Smoking Tobacco: Former Cigarettes 1 5 0 06/21/1963 - 06/21/1968 Smokeless Tobacco: Former Comments:not a smoker Alcohol Use Standard Drinks/Week Comments Yes 0 (1 standard drink = 0.6 oz pure alcohol) Very occasionally - 2 per month Comments No Sex and Gender Information Value Date Recorded Sex Assigned at Female 08/17/2018 7:56 AM PLANT TECH Legal Sex Female 4:24 AM PLANT TECH Gender Identity Female 08/17/2018 7:56 AM PLANT TECH Sexual Orientation Straight 08/17/2018 7: 56 AM PLANT TECH documented as of this encounter Miscellaneous Notes * Telephone Encounter - Leigha Rinaldi RN - 06/30/2016 11:34 AM CST Called patient and advised Dr. Gatica would see her if she came over now. Leigha Rinaldi RN T TECH * Telephone Encounter - Esperanza Gatica MD - 06/30/2016 9:03 AM PLANT TECH Recommend appointment with me. I recommend we do an exam, to double check ears, throat, lungs etc. ianmbalta was started in feb and recommended follow up for that med, we can discuss this as well. Any way she can come in today? T TECH documented in this encounter Plan of Treatment Upcoming Encounters Date Type Department Care Team (Late st Contact Info) Description 09/07/2024 10:00 AM CDT Office Visit [facility] [address] [place] [phone] Fransisco Eddy MD [address] [place] [address] 03/29/2025 3:40 PM CDT Office Visit [address] [phone] Alfreda Ray PA-C [address] [place] [address] [id number] documented as of this encounter Visit Diagnoses Not on filedocumented in this encounter Additional Health Concerns Infection Onset Date Last Indicated Resolved Time Rule Out COVID-19 05/08/2021 05/08/2021 05/09/2021 9:08 PM PLANT TECH Assessment Noted Time PHQ-9 Depression Total Score: 0 08/14/19 16 8:10 AM PLANT TECH documented as of this encounter Care Teams Scheduling Analyst Relationship Specialty Start Date End Date Esperanza Gatica MD PCP - General Family Practice 10/13/11 12/29/21 [place] [address] [place] [address] PCP - Assigned PCP 12/05/17 08/23/18 Alfreda Ray PA-C [address] [place] [address] PCP - General Family Medicine 12/30/21 [place] [address] [place] [address] Assigned PCP 12/05/17 09/30/19 [place] [address] [place] [address] Assigned PCP 10/01/19 03/02/20 [place] [address] [place] [address] Assigned PCP 03/03/20 05/25/20 [place] [address] [place] [address] Assigned PCP 05/26/20 09/28/20 [place] [address] [place] [address] Assigned PCP 09/29/20 07/31/22 [place] [address] [address] [place] [address] Assigned Musculoskeletal Provider 10/20/20 04/17/22 Alfreda Ray PA-C [address] [place] [address] Referring Physician Family Medicine 12/31/21 Katrin Orellana PA-C [address] [place] [address] Physician Ingot Car Operator Dermatology 12/31/21 Shanna Vang PA-C [facility] . [address] [place] [address] Assigned Cancer Care Provider 01/10/22 Fransisco Eddy MD [address] [place] [address] 017805 Assigned Rheumatology Provider 05/09/22 [place] [address] [address] [facility] [place] [address] Assigned Pain Medication Provider 06/29/22 09/04/22 [place] [address] [address] [facility] [place] [address] Assigned PCP 08/15/22 08/28/22 Katrin Orellana PA-C [address] [place] [address] Assigned Surgical Provider 08/15/22 02/10/24 Cristina Hsieh, [facility] [address] [place] [address] [place] [address] Pharmacist Pharmacist 09/07/22 Alfreda Ray PA-C [address] [place] [address] Assigned Pain Medication Provider 09/05/22 09/10/23 Alfreda Ray PA-C [address] [place] [address] Assigned PCP 08/29/22 Cristina Hsieh, [facility] [address] [place] [address] Assigned MTM Pharmacist 09/26/22 Dakota Tatum MD [address] [place] [address] Cardiovascular Disease 03/25/23 Dakota Tatum MD [address] [place] [address] Assigned Heart and Vascular Provider 05/01/23 [place] [address] [address] Assigned Musculoskeletal Provider 04/12/24 documented as of this encounter
--- OUTSIDE RECORDS SUMMARY | 2024-06-22 23:13 | XMS_ITS | Encounter Summary ---
Author Organization [facility] Address [address] [place] [address] Care Team Providers Care Crude Tester Name Role Phone Esperanza Gatica MD Primary Care Provider + Esperanza Gatica MD Unavailable +[phone] Esperanza Gatica MD Unavailable +[phone] Esperanza Gatica MD Unavailable +275 Esperanza Gatica MD Unavailable +294 Esperanza Gatica MD Unavailable +409 Esperanza Gatica MD Unavailable +[phone] Jesús Orourke MD Unavailable Alfreda RayC Primary Care Provider + Alfreda Ray PA-C Unavailable + [phone] Katrin Orellana PA-C Unavailable +[phone] Shanna VangC Unavailable +[phone] Fransisco Eddy MD Unavailable [phone] Esperanza Gatica MD Unavailable +[phone] Esperanza Gatica MD Unavailable +[phone] Katrin Orellana PA-C Unavailable [phone] Cristina Hsieh [facility] Unavailable RayAlfreda PA-C Unavailable [phone] Cory Alfreda Liu PA-C Unavailable [phone] Cristina Hsieh [facility] Unavailable Dakota Tatum MD Unavailable Dakota Tatum MD Unavailable Srinivas Marie DO Unavailable [phone] Encounter Details Date Type Department Care Team (Late st Contact Info) Description 08/17/2017 MyC Medical Advice [address], [address] [place] [address] [place] [address] [place] [address] Social History Tobacco Use Types [...] Sex Assigned at Female 08/17/2018 7:56 AM VIDEO GAME CREATOR Legal Sex Female 4:24 AM VIDEO GAME CREATOR Gender Identity Female 08/17/2018 7:56 AM VIDEO GAME CREATOR Sexual Orientation Straight 08/17/2018 7: 56 AM VIDEO GAME CREATOR documented as of this encounter Plan of Treatment Upcoming Encounters Date Type Department Care Team (Late st Contact Info) Description 09/07/2024 10:00 AM CDT Office Visit [facility] [address] [address] Fransisco Eddy MD [address] [place] [address] 03/29/2025 3:40 PM CDT Office Visit [address] [address] Alfreda Ray PA-C [address] [place] [address] 009092 documented as of this encounter Visit Diagnoses Not on filedocumented in this encounter Additional Health Concerns Infection Onset Date Last Indicated Resolved Time Rule Out COVID-19 05/08/2021 05/08/2021 05/09/2021 9:08 PM VIDEO GAME CREATOR Assessment Noted Time PHQ-9 Depression Total Score: 0 08/18/19 17 7:09 AM VIDEO GAME CREATOR documented as of this encounter Care Teams Crude Tester Relationship Specialty Start Date End Date Esperanza Gatica MD PCP - General Family Practice 10/13/11 12/29/21 [place] [address] [place] [place] [address] PCP - Assigned PCP 12/05/17 08/23/18 Alfreda Ray PA-C [address] [place] [address] 257052 PCP - General Family Medicine 12/30/21 [place] [address] [place] [place] [address] Assigned PCP 12/05/17 09/30/19 [place] [address] [address] [place] [address] Assigned PCP 10/01/19 03/02/20 [place] [address] [place] [address] Assigned PCP 03/03/20 05/25/20 [place] [address] [place] [address] Assigned PCP 05/26/20 09/28/20 [place] [address] [place] [address] Assigned PCP 09/29/20 07/31/22 [place] [address] [address] [facility] [place] [address] Assigned Musculoskeletal Provider 10/20/20 04/17/22 Alfreda Ray PA-C [address] [place] [address] 334392 Referring Physician Family Medicine 12/31/21 Katrin Orellana PA-C [address] [place] [address] 713395 Physician Armored Car Messenger Dermatology 12/31/21 Shanna Vang PA-C [address] [place] [address] Assigned Cancer Care Provider 01/10/22 Fransisco Eddy MD [address] [place] [address] 556015 Assigned Rheumatology Provider 05/09/22 [place] [address] [place] [address] Assigned Pain Medication Provider 06/29/22 09/04/22 [place] [address] [place] [address] Assigned PCP 08/15/22 08/28/22 Katrin Orellana PA-C [address] [place] [address] 98 [place], [place] 0[address]35 Assigned Surgical Provider 08/15/22 02/10/24 Cristina Hsieh [facility] [address] [facility] [place] [address] Pharmacist Pharmacist 09/07/22 Alfreda Ray PA-C [address] [place] [address] 238692 Assigned Pain Medication Provider 09/05/22 09/10/23 Alfreda Ray PA-C [address] [place] [address] Assigned PCP 08/29/22 Cristina Hsieh, [facility] [address] [address] Assigned MTM Pharmacist 09/26/22 Dakota Tatum MD [address] [place] [address] Cardiovascular Disease 03/25/23 Dakota Tatum MD [address] [place] [address] Assigned Heart and Vascular Provider 05/01/23 [place] [address] [address], [address] [address] Assigned Musculoskeletal Provider 04/12/24 documented as of this encounter
--- OUTSIDE RECORDS SUMMARY | 2024-06-22 23:13 | XMS_ITS | Encounter Summary ---
Author Organization [place] Address [address] [place] [address] Care Team Providers Care Epidemiologist Name Role Phone Esperanza Gatica MD Primary Care Provider + Esperanza Gatica MD Unavailable +[phone] Esperanza Gatica MD Unavailable +[phone] Esperanza Gatica MD Unavailable +[phone] Esperanza Gatica MD Unavailable +289 Esperanza Gatica MD Unavailable +[phone] Esperanza Gatica MD Unavailable +[phone] Jesús Orourke MD Unavailable Alfreda RayC Primary Care Provider + Alfreda Ray PA-C Unavailable + [phone] Katrin Orellana PA-C Unavailable +[phone] Shanna VangC Unavailable +[phone] Fransisco Eddy MD Unavailable +[phone] Esperanza Gatica MD Unavailable +[phone] Esperanza Gatica MD Unavailable +[phone] Katrin Orellana PA-C Unavailable Cristina Hsieh [facility] Unavailable Cory Alfreda Liu PA-C Unavailable +[phone] Ho Raymustapha Liu PA-C Unavailable +[phone] Cristina Hsieh [facility] Unavailable +[phone] Dakota Tatum MD Unavailable [phone] Dakota Tatum MD Unavailable [phone] Srinivas Marie DO Unavailable [phone] Reason for Visit * Reason Onset Date Comments Refill Request 03/12/2016 Lisinopril-HCTZ Encounter Details Date Type Department Care Team (Late st Contact Info) Description 03/12/2016 MyC Refill [address], [address] [place] [address] [place] [address] [place] [address] Refill Request (Lisinopril-HCTZ) Social History Tobacco Use Types Packs/Day Years Used Date Smoking Tobacco: Former Cigarettes 1 5 0 06/21/1963 - 06/21/1968 Smokeless Tobacco: Former Comments:not a smoker Alcohol Use Standard Drinks/Week Comments Yes 0 (1 standard drink = 0.6 oz pure alcohol) Very occasionally - 2 per month Comments No Sex and Gender Information Value Date Recorded Sex Assigned at Female 08/17/2018 7:56 AM CITIZENSHIP INSTRUCTOR Legal Sex Female 4:24 AM CITIZENSHIP INSTRUCTOR Gender Identity Female 08/17/2018 7:56 AM CITIZENSHIP INSTRUCTOR Sexual Orientation Straight 08/17/2018 7: 56 AM CITIZENSHIP INSTRUCTOR documented as of this encounter Miscellaneous Notes * Telephone Encounter - Leigha Rinaldi RN - 03/12/2016 11:44 AM CDT Lisinopril-HCTZ Last Written Prescription Date: 08/13/2015 Last Fill Quantity: 90, # refills: 1 Last Office Visit with [facility], [facility] or [facility] prescribing provider: 03/03/2016 POTASSIUM Date Value Ref Range Status 08/13/2015 3.9 3.4 - 5.3 mmol/L Final CREATININE Date Value Ref Range Status 08/13/2015 0.87 0.52 - 1.04 mg/dL Final BP Readings from Last 3 Encounters: 03/03/16 134/64 08/13/15 136/66 04/08/15 112/60 Prescription approved per [facility] [place] Refill Protocol. Leigha Rinaldi RN * Telephone Encounter - Leigha Rinaldi RN - 03/12/2016 11:44 AM CDTMessage from [facility]: Original authorizing provider: MD Alexandria Brannon would like a refill of the following medications: lisinopril-hydrochlorothiazide (PRINZIDE,ZESTORETIC) 10-12.5 MG per tablet [Esperanza Gatica MD] Preferred pharmacy: [facility] - [address] Comment: documented in this encounter Plan of Treatment Upcoming Encounters Date Type Department Care Team (Late st Contact Info) Description 09/07/2024 10:00 AM CDT Office Visit [facility] [address] [phone] Fransisco Eddy MD [address] [place] [address] [phone] 03/29/2025 3:40 PM CDT Office Visit [address] [phone] Alfreda Ray PA-C [address] [place] [address] 360172 documented as of this encounter Visit Diagnoses Diagnosis HTN (hypertension), benign Essential hypertension, benign documented in this encounter Additional Health Concerns Infection Onset Date Last Indicated Resolved Time Rule Out COVID-19 05/08/202105/0805/08/2021 05/09/2021 9:08 PM CITIZENSHIP INSTRUCTOR Assessment Noted Time PHQ-9 Depression Total Score: 0 08/14/19 16 8:10 AM CITIZENSHIP INSTRUCTOR documented as of this encounter Care Teams Epidemiologist Relationship Specialty Start Date End Date Esperanza Gatica MD PCP - General Family Practice 10/13/11 12/29/21 [place] [address] [place] [address] PCP - Assigned PCP 12/05/17 08/23/18 Alfreda Ray PA-C [address] [place] [address] PCP - General Family Medicine 12/30/21 [place] [address] [place] [address] Assigned PCP 12/05/17 09/30/19 [place] [address] [place] [address] Assigned PCP 10/01/19 03/02/20 [place] [address] [place] [address] Assigned PCP 03/03/20 05/25/20 [place] [address] [place] [address] Assigned PCP 05/26/20 09/28/20 [place] [address] [place] [address] Assigned PCP 09/29/20 07/31/22 Jesú[place] [address] [place] [address] Assigned Musculoskeletal Provider 10/20/20 04/17/22 Alfreda Ray PA-C [address] [place] [address] [phone] Referring Physician Family Medicine 12/31/21 Katrin Orellana PA-C [address] [place] [address] 98 [place], [place] 225[address] Physician Aesthetician Dermatology 12/31/21 Shanan Vang PA-C [address] [phone] Assigned Cancer Care Provider 01/10/22 Fransisco Eddy MD [address] [place] [address] 268535 Assigned Rheumatology Provider 05/09/22 [place] [address] [place] GARCIA [address] Assigned Pain Medication Provider 06/29/22 09/04/22 [place] [address] [place] [address] Assigned PCP 08/15/22 08/28/22 Katrin Orellana PA-C [address] [facility] 98 [place] [address] Assigned Surgical Provider 08/15/22 02/10/24 Cristina Hsieh [facility] [address] [facility] [place] [address] Pharmacist Pharmacist 09/07/22 Alfreda Ray PA-C [address] [place] [address] 707672 Assigned Pain Medication Provider 09/05/22 09/10/23 Alfreda Ray PA-C [address] [place] [address] 179682 Assigned PCP 08/29/22 Cristina Hsieh, [facility] [address] [address] Assigned MTM Pharmacist 09/26/22 Dakota Tatum MD 6 [place] [address] Cardiovascular Disease 03/25/23 Dakota Tatum MD 6 [place] [address] Assigned Heart and Vascular Provider 05/01/23 [place] [address] [facility] [address] [place] [address] Assigned Musculoskeletal Provider 04/12/24 documented as of this encounter
--- OUTSIDE RECORDS SUMMARY | 2024-06-22 23:13 | XMS_ITS | Encounter Summary ---
Author Organization [place] Address [address] [place] [address] Care Team Providers Care Tobacco Grower Name Role Phone Esperanza Gatica MD Primary Care Provider + Esperanza Gatica MD Unavailable +[phone] Esperanza Gatica MD Unavailable +[phone] Esperanza Gatica MD Unavailable +[phone] Esperanza Gatica MD Unavailable +620 Esperanza Gatica MD Unavailable +[phone] Esperanza Gatica MD Unavailable +[phone] Jesús Orourke MD Unavailable Alfreda RayC Primary Care Provider + Alfreda Ray PA-C Unavailable + [phone] Katrin Orellana PA-C Unavailable [phone] Shanna VangC Unavailable +[phone] Fransisco Eddy MD Unavailable [phone] Esperanza Gatica MD Unavailable +[phone] Esperanza Gatica MD Unavailable +[phone] Katrin Orellana PA-C Unavailable Cristina Hsieh [facility] Unavailable Cory Alfreda Liu PA-C Unavailable [phone] Alfreda Ray Alexa KING Unavailable [phone] Cristina Hsieh [facility] Unavailable Dakota Tatum MD Unavailable Dakota Tatum MD Unavailable Srinivas Marie DO Unavailable [phone] Reason for Visit * Reason Onset Date Comments Medication Refill 08/26/2017 lisinopril-hyd rochlorothiazide (PRINZIDE/ZESTORETIC) 10-12.5 MG per tablet Encounter Details Date Type Department Care Team (Late st Contact Info) Description 08/26/[address], [address] [place] [address] [place] [address] [place] [address] Medication Refill (lisinopril-hydrochloro thiazide (PRINZIDE/ZESTORETIC) 10-12.5 MG per tablet) Social History Tobacco Use Types Packs/Day [...] Assigned at Female 08/17/2018 7:56 AM MANAGER HOSPICE Legal Sex Female 4:24 AM MANAGER HOSPICE Gender Identity Female 08/17/2018 7:56 AM MANAGER HOSPICE Sexual Orientation Straight 08/17/2018 7: 56 AM MANAGER HOSPICE documented as of this encounter Miscellaneous Notes * Telephone Encounter - Leigha Rinaldi RN - 08/26/2017 11:23 AM CST Prescription approved [place] [facility] [place] Refill Protocol. Leigha Rinaldi RN [facility] * Telephone Encounter - Diya Stone - 08/26/2017 11:07 AM CST Requested Prescriptions Pending Prescriptions Disp Refills ??? lisinopril-hydrochlorothiazide (PRINZIDE/ZESTORETIC) 10-12.5 MG per tablet [Pharmacy Med Name: LISINOPRIL-HYDROCHLORO 10-12.5 TABS] 90 tablet 1 Last Written Prescription Date: 02/26/17 Last Fill Quantity: 90, # refills: 1 Last Office Visit: 07/02/2017 Future Office Visit: Sig: TAKE ONE TABLET BY MOUTH EVERY DAY Diuretics (Including Combos) Protocol Passed 08/26/2017 10:53 AM Passed - Blood pressure under 140/90 in past 12 months BP Readings from Last 3 Encounters: 08/16/17 100/40 07/02/17 148/70 04/08/17 136/60 Passed - Recent (12 mo) or future [...] past 12 months Recent Labs Lab Test 07/02/17 1134 CR 0.90 Passed - Normal serum potassium on file in past 12 months Recent Labs Lab Test 07/02/17 1134 POTASSIUM 4.7 Passed - Normal serum sodium on file in past 12 months Recent Labs Lab Test 07/02/17 1134 NA 141 Passed - No positive test in past 12 months [facility] documented in this encounter Plan of Treatment Upcoming Encounters Date Type Department Care Team (Late st Contact Info) Description 09/07/2024 10:00 AM CDT Office Visit [address] [phone] Fransisco Eddy MD [address] [place] [address] 03/29/2025 3:40 PM CDT Office Visit [address] [phone] Alfreda Ray PA-C [address] [place] [address] 439582 documented as of this encounter Visit Diagnoses Diagnosis HTN (hypertension), benign Essential hypertension, benign documented in this encounter Additional Health Concerns Infection Onset Date Last Indicated Resolved Time Rule Out COVID-19 05/08/2021 05/08/2021 05/09/2021 9:08 PM MANAGER HOSPICE Assessment Noted Time PHQ-9 Depression Total Score: 0 08/18/19 7:09 AM MANAGER HOSPICE documented as of this encounter Care Teams Tobacco Grower Relationship Specialty Start Date End Date Esperanza Gatica MD PCP - General Family Practice 10/13/11 12/29/21 [place] [address] [place] GARCIA [address] PCP - Assigned PCP 12/05/17 08/23/18 Alfreda Ray PA-C [address] [place] [address] PCP - General Family Medicine 12/30/21 [place] [address] [place] GARCIA [address] Assigned PCP 12/05/17 09/30/19 [place] [address] [place] GARCIA [address] Assigned PCP 10/01/19 03/02/20 [place] [address] [place] [address] Assigned PCP 03/03/20 05/25/20 [place] [address] [place] [address] Assigned PCP 05/26/20 09/28/20 [place] [address] [place] [address] Assigned PCP 09/29/20 07/31/22 Jesú[place] [address] [address] Assigned Musculoskeletal Provider 10/20/20 04/17/22 Alfreda Ray PA-C [address] [place] [address] [phone] Referring Physician Family Medicine 12/31/21 Katrin Orellana PA-C [address] [place] [address] 275715 Physician Supervisor M[employer] Dermatology 12/31/21 Shanna Vang PA-C [address] [place] [address] 251514 Assigned Cancer Care Provider 01/10/22 Fransisco Eddy MD [address] [place] [address] [phone] Assigned Rheumatology Provider 05/09/22 [place] [address] [address] [place] [address] Assigned Pain Medication Provider 06/29/22 09/04/22 [place] [address] [place] [address] Assigned PCP 08/15/22 08/28/22 Katrin Orellana PA-C [address] [place] [address]991 Assigned Surgical Provider 08/15/22 02/10/24 Cristina Hsieh [facility] [address] [place] [address] L[place]BETH HERNANDEZ [address] Pharmacist Pharmacist 09/07/22 Alfreda Ray PA-C [address] [place] [address] 855982 Assigned Pain Medication Provider 09/05/22 09/10/23 Alfreda Ray PA-C [address] [place] [address] Assigned PCP 08/29/22 Cristina Hsieh [facility] [address] [phone] Assigned MTM Pharmacist 09/26/22 Dakota Tatum MD [address] [place] [address] Cardiovascular Disease 03/25/23 Dakota Tatum MD [address] [place], [place] 293345 Assigned Heart and Vascular Provider 05/01/23 [place] [address] [address] [facility], [address] [address] Assigned Musculoskeletal Provider 04/12/24 documented as of this encounter
--- OUTSIDE RECORDS SUMMARY | 2024-06-22 23:13 | XMS_ITS | Encounter Summary ---
Author Organization [place] Address [address] [place] [address] Care Team Providers Care Paper Production Engineer Name Role Phone Esperanza Gatica MD Primary Care Provider + Esperanza Gatica MD Unavailable +[phone] Esperanza Gatica MD Unavailable +[phone] Esperanza Gatica MD Unavailable +002 Esperanza Gatica MD Unavailable +516 Esperanza Gatica MD Unavailable +017 Esperanza Gatica MD Unavailable +[phone] Jesús Orourke MD Unavailable Alfreda RayC Primary Care Provider + Alfreda Ray PA-C Unavailable + [phone] Katrin Orellana PA-C Unavailable +[phone] Shanna VangC Unavailable +[phone] Fransisco Eddy MD Unavailable [phone] Esperanza Gatica MD Unavailable +[phone] Esperanza Gatica MD Unavailable +[phone] Katrin Orellana PA-C Unavailable Cristina Hsieh [facility] Unavailable Cory Alfreda Liu PA-C Unavailable +[phone] Alfreda Ray Alexa KING Unavailable +[phone] Cristina Hsieh [facility] Unavailable Dakota Tatum MD Unavailable Dakota Tatum MD Unavailable [phone] Srinivas Marie DO Unavailable [phone] Reason for Visit * Reason Onset Date Comments MyChart Communication 06/29/2017 Encounter Details Date Type Department Care Team (Late st Contact Info) Description 06/29/2017 MyC Medical Advice [address], [address] [place] [address] [place] [address] [place] [address] MyChart Communication Social History Tobacco [...] Sex Assigned at Female 08/17/2018 7:56 AM FORKLIFT OPERATOR Legal Sex Female 4:24 AM FORKLIFT OPERATOR Gender Identity Female 08/17/2018 7:56 AM FORKLIFT OPERATOR Sexual Orientation Straight 08/17/2018 7: 56 AM FORKLIFT OPERATOR documented as of this encounter Miscellaneous Notes * Telephone Encounter - Yuliet Barrera RN - 06/29/2017 10:28 AM CST Recommend appt for sinus inf Yuliet Barrera RN, BS Clinical Nurse Triage. LIFT OPERATOR documented in this encounter Plan of Treatment Upcoming Encounters Date Type Department Care Team (Late st Contact Info) Description 09/07/2024 10:00 AM CDT Office Visit [facility] [address] [place] [phone] Fransisco Eddy MD [address] [place] [address] 03/29/2025 3:40 PM CDT Office Visit [address] [phone] Alfreda Ray PA-C [address] [place] [address] 452562 documented as of this encounter Visit Diagnoses Not on filedocumented in this encounter Additional Health Concerns Infection Onset Date Last Indicated Resolved Time Rule Out COVID-19 05/08/2021 05/08/2021 05/09/2021 9:08 PM FORKLIFT OPERATOR Assessment Noted Time PHQ-9 Depression Total Score: 0 08/18/19 17 7:09 AM FORKLIFT OPERATOR documented as of this encounter Care Teams Paper Production Engineer Relationship Specialty Start Date End Date Esperanza Gatica MD PCP - General Family Practice 10/13/11 12/29/21 [place] [address] [place] GARCIA [address] PCP - Assigned PCP 12/05/17 08/23/18 Alfreda Ray PA-C [address] [place] [address] PCP - General Family Medicine 12/30/21 [place] [address] [place]ARCIA [address] Assigned PCP 12/05/17 09/30/19 [place] [address] [place] GARCIA [address] Assigned PCP 10/01/19 03/02/20 [place] [address] [place] GARCIA [address] Assigned PCP 03/03/20 05/25/20 [place] [address] [place] GARCIA 14547 Assigned PCP 05/26/20 09/28/20 [place] [address] [place] GARCIA 225[address] Assigned PCP 09/29/20 07/31/22 [place] [address] [place] [address] [place] [address]47 Assigned Musculoskeletal Provider 10/20/20 04/17/22 Alfreda Ray PA-C [address] [place] [address] 041942 Referring Physician Family Medicine 12/31/21 Katrin Orellana PA-C [address] [place] [address] [phone] Physician Certified Alcohol Drug Counselor Dermatology 12/31/21 Shanna Vang PA-C [address] [place] [address] Assigned Cancer Care Provider 01/10/22 Fransisco Eddy MD [address] [place] [address] Assigned Rheumatology Provider 05/09/22 [place] [address] [place] [address] Assigned Pain Medication Provider 06/29/22 09/04/22 [place] [address] [place] [address] Assigned PCP 08/15/22 08/28/22 Katrin Orellana PA-C [address] [place] [address] Assigned Surgical Provider 08/15/22 02/10/24 Cristina Hsieh [facility] [address] [place] [address] L[place]BETH HERNANDEZ [address] Pharmacist Pharmacist 09/07/22 Alfreda Ray PA-C [address] [place] [address]3933 Assigned Pain Medication Provider 09/05/22 09/10/23 Alfreda Ray PA-C [address] [place] [address]46 Assigned PCP 08/29/22 Cristina Hsieh [facility] [address] [address] Assigned MTM Pharmacist 09/26/22 Dakota Tatum MD [address] [place] [address] Cardiovascular Disease 03/25/23 Dakota Tatum MD [address] [place] [address] Assigned Heart and Vascular Provider 05/01/23 [place] [address] [address]AST[address], [address] [address] Assigned Musculoskeletal Provider 04/12/24 documented as of this encounter
--- OUTSIDE RECORDS SUMMARY | 2024-06-22 23:13 | XMS_ITS | Encounter Summary ---
Author Organization [place] Address [address] [place] [address] Care Team Providers Care Cv Rn Name Role Phone Esperanza Gatica MD Primary Care Provider + Esperanza Gatica MD Unavailable +[phone] Esperanza Gatica MD Unavailable +[phone] Esperanza Gatica MD Unavailable +[phone] Esperanza Gatica MD Unavailable +647 Esperanza Gatica MD Unavailable +[phone] Esperanza Gatica MD Unavailable +[phone] Jesús Orourke MD Unavailable Alfreda RayC Primary Care Provider + Alfreda Ray PA-C Unavailable + [phone] Katrin Orellana PA-C Unavailable +[phone] Shanna VangC Unavailable +[phone] Fransisco Eddy MD Unavailable +[phone] Esperanza Gatica MD Unavailable +[phone] Esperanza Gatica MD Unavailable +[phone] Katrin Orellana PA-C Unavailable Cristina Hsieh [facility] Unavailable RayAlfreda PA-C Unavailable [phone] Cory Alfreda Liu PA-C Unavailable [phone] Cristina Hsieh [facility] Unavailable Dakota Tatum MD Unavailable Dakota Tatum MD Unavailable Srinivas Marie DO Unavailable [phone] Encounter Details Date Type Department Care Team (Late st Contact Info) Description 08/17/2017 MyC Medical Advice [address], [address] [place] [address] [place] [address] [place] [address] Social History Tobacco Use Types [...] Sex Assigned at Female 08/17/2018 7:56 AM PHOTOENGRAVING FINISHER Legal Sex Female 4:24 AM PHOTOENGRAVING FINISHER Gender Identity Female 08/17/2018 7:56 AM PHOTOENGRAVING FINISHER Sexual Orientation Straight 08/17/2018 7: 56 AM PHOTOENGRAVING FINISHER documented as of this encounter Plan of Treatment Upcoming Encounters Date Type Department Care Team (Late st Contact Info) Description 09/07/2024 10:00 AM CDT Office Visit [facility] [address] [phone] Fransisco Eddy MD [address] [place] [address] 03/29/2025 3:40 PM CDT Office Visit [address] [phone] Alfreda Ray PA-C [address] [place] [address] 148222 documented as of this encounter Visit Diagnoses Not on filedocumented in this encounter Additional Health Concerns Infection Onset Date Last Indicated Resolved Time Rule Out COVID-19 05/08/2021 05/08/2021 05/09/2021 9:08 PM PHOTOENGRAVING FINISHER Assessment Noted Time PHQ-9 Depression Total Score: 0 08/18/19 17 7:09 AM PHOTOENGRAVING FINISHER documented as of this encounter Care Teams Cv Rn Relationship Specialty Start Date End Date Esperanza Gatica MD PCP - General Family Practice 10/13/11 12/29/21 [place] [address] [place] GARCIA [address] PCP - Assigned PCP 12/05/17 08/23/18 Alfreda Ray PA-C [address] [place] [address] 596042 PCP - General Family Medicine 12/30/21 [place] [address] [place] GARCIA [address] Assigned PCP 12/05/17 09/30/19 [place] [address] [place] GARCIA [address] Assigned PCP 10/01/19 03/02/20 [place] [address] [place] [address] Assigned PCP 03/03/20 05/25/20 [place] [address] [place] [address] Assigned PCP 05/26/20 09/28/20 [place] [address] [place] [address] Assigned PCP 09/29/20 07/31/22 [place] [address] [facility] [place] [address] Assigned Musculoskeletal Provider 10/20/20 04/17/22 Alfreda Ray PA-C [address] [place] [address] 813642 Referring Physician Family Medicine 12/31/21 Katrin Orellana PA-C [address] [place] [address] 357335 Physician Picker Packer Dermatology 12/31/21 Shanna Vang PA-C [address] [place] [address] Assigned Cancer Care Provider 01/10/22 Fransisco Eddy MD [address] [place] [address] 008455 Assigned Rheumatology Provider 05/09/22 [place] [address] [place] [address] Assigned Pain Medication Provider 06/29/22 09/04/22 [place] [address] [place] [address] Assigned PCP 08/15/22 08/28/22 Katrin Orellana PA-C [address] [place] [address] 98 [place], [place] 160175 Assigned Surgical Provider 08/15/22 02/10/24 Cristina Hsieh [facility] 3[address] [facility] [place]BETH HERNANDEZ [address] Pharmacist Pharmacist 09/07/22 Alfreda Ray PA-C [address] [place] [address] 067292 Assigned Pain Medication Provider 09/05/22 09/10/23 Alfreda Ray PA-C [address] [place] [address] Assigned PCP 08/29/22 Cristina Hsieh, [facility] [address] [address] Assigned MTM Pharmacist 09/26/22 Dakota Tatum MD [address] [place] [address] Cardiovascular Disease 03/25/23 Dakota Tatum MD [address] [place] [address] Assigned Heart and Vascular Provider 05/01/23 [place] [address] CE[address] GASTELUM, [address] [address] Assigned Musculoskeletal Provider 04/12/24 documented as of this encounter
--- OUTSIDE RECORDS SUMMARY | 2024-06-22 23:13 | XMS_ITS | Encounter Summary ---
Author Organization [place] Address [address] [place] [address] 0[address]89 Care Team Providers Care Pipe Assembly Worker Name Role Phone Esperanza Gatica MD Primary Care Provider + Esperanza Gatica MD Unavailable +[phone] Esperanza Gatica MD Unavailable +[phone] Esperanza Gatica MD Unavailable +359 Esperanza Gatica MD Unavailable +[phone] Esperanza Gatica MD Unavailable +[phone] Esperanza Gatica MD Unavailable +[phone] Jesús Orourke MD Unavailable Alfreda RayC Primary Care Provider + Alfreda Ray PA-C Unavailable + [phone] Katrin Orellana PA-C Unavailable +[phone] Shanna VangC Unavailable +[phone] Fransisco Eddy MD Unavailable +[phone] Esperanza Gatica MD Unavailable +[phone] Esperanza Gatica MD Unavailable +[phone] Katrin Orellana PA-C Unavailable Cristina Hsieh [facility] Unavailable Cory Alfreda Liu PA-C Unavailable Ho Raymustapha Liu PA-C Unavailable [phone] Cristina Hsieh [facility] Unavailable Dakota Tatum MD Unavailable Dakota Tatum MD Unavailable Srinivas Marie DO Unavailable [phone] Reason for Visit * Reason Onset Date Comments Flu 08/19/2016 Flu like symptom s Encounter Details Date Type Department Care Team (Late st Contact Info) Description 08/19/2016 MyC Medical Advice [place] [id number] [facility], [facility] [address] [place] [address] [place] [address] [facility] [place] [address] Flu (Flu like symptoms) Social History Tobacco Use Types Packs/Day Years Used Date Smoking Tobacco: Former Cigarettes 1 5 0 06/21/1963 - 06/21/1968 Smokeless Tobacco: Former Comments:not a smoker Alcohol Use Standard Drinks/Week Comments Yes 0 (1 standard drink = 0.6 oz pure alcohol) Very occasionally - 2 per month Comments No Sex and Gender Information Value Date Recorded Sex Assigned at Female 08/17/2018 7:56 AM RESIDENTIAL ELECTRICIAN Legal Sex Female 4:24 AM RESIDENTIAL ELECTRICIAN Gender Identity Female 08/17/2018 7:56 AM RESIDENTIAL ELECTRICIAN Sexual Orientation Straight 08/17/2018 7: 56 AM RESIDENTIAL ELECTRICIAN documented as of this encounter Plan of Treatment Upcoming Encounters Date Type Department Care Team (Late st Contact Info) Description 09/07/2024 10:00 AM CDT Office Visit [facility] [address] [place] [address] Fransisco Eddy MD [address] [place] [address] 03/29/2025 3:40 PM CDT Office Visit [facility] [address] [place] [phone] Alfreda Ray PA-C [address] [place] [address] documented as of this encounter Visit Diagnoses Not on filedocumented in this encounter Additional Health Concerns Infection Onset Date Last Indicated Resolved Time Rule Out COVID-19 05/08/2021 05/08/2021 05/09/2021 9:08 PM RESIDENTIAL ELECTRICIAN Assessment Noted Time PHQ-9 Depression Total Score: 0 08/18/19 17 7:09 AM RESIDENTIAL ELECTRICIAN documented as of this encounter Care Teams Pipe Assembly Worker Relationship Specialty Start Date End Date Esperanza Gatica MD PCP - General Family Practice 10/13/11 12/29/21 [place] [address] LISBETH GARCIA [address] PCP - Assigned PCP 12/05/17 08/23/18 Alfreda Ray PA-C [address] [place] [address] 23864 PCP - General Family Medicine 12/30/21 [place] [address] LISBETH GARCIA [address] Assigned PCP 12/05/17 09/30/19 [place] [address] LISBETH GARCIA 945[address] Assigned PCP 10/01/19 03/02/20 [place] [address] [place] [address] Assigned PCP 03/03/20 05/25/20 [place] [address] [place] [address] Assigned PCP 05/26/20 09/28/20 [place] [address] [place] [address] Assigned PCP 09/29/20 07/31/22 [place] [address] [place] [address] Assigned Musculoskeletal Provider 10/20/20 04/17/22 Alfreda Ray PA-C [address] [place] [address] [phone] Referring Physician Family Medicine 12/31/21 Katrin Orellana PA-C [address] [place] [address] [phone] Physician Football Pad Repairer Dermatology 12/31/21 Shanna Vang PA-C [address] [place] [address] 769814 Assigned Cancer Care Provider 01/10/22 Fransisco Eddy MD [address] [place] [address] [phone] Assigned Rheumatology Provider 05/09/22 [place] [address] [place] [address] Assigned Pain Medication Provider 06/29/22 09/04/22 [place] [address] [place] [address] Assigned PCP 08/15/22 08/28/22 Katrin Orellana PA-C [address] [place] [address] 672975 Assigned Surgical Provider 08/15/22 02/10/24 Cristina Hsieh [facility] [address] [place] [address] LISBETH HERNANDEZ [address] Pharmacist Pharmacist 09/07/22 Alfreda Ray PA-C [address] [place] [address] 159452 Assigned Pain Medication Provider 09/05/22 09/10/23 Alfreda Ray PA-C [address] [place] [address] 147182 Assigned PCP 08/29/22 Cristina Hsieh [facility] [address] [phone] Assigned MTM Pharmacist 09/26/22 Dakota Tatum MD [address] [place], [place] 599055 Cardiovascular Disease 03/25/23 Dakota Tatum MD [address] [place] [address] Assigned Heart and Vascular Provider 05/01/23 [place] [address] [address], [address] [address] Assigned Musculoskeletal Provider 04/12/24 documented as of this encounter
--- OUTSIDE RECORDS SUMMARY | 2024-06-22 23:13 | XMS_ITS | Encounter Summary ---
Author Organization [place] Address [address] [place] [address] 40013 Care Team Providers Care Hydropulper Name Role Phone Esperanza Gatica MD Primary Care Provider + Esperanza Gatica MD Unavailable +[phone] Esperanza Gatica MD Unavailable +[phone] Esperanza Gatica MD Unavailable +403 Esperanza Gatica MD Unavailable +[phone] Esperanza Gatica MD Unavailable +374 Esperanza Gatica MD Unavailable +[phone] Jesús Orourke MD Unavailable Alfreda RayC Primary Care Provider + Alfreda Ray PA-C Unavailable + [phone] Katrin Orellana PA-C Unavailable +[phone] Shanna VangC Unavailable +[phone] Fransisco Eddy MD Unavailable [phone] Esperanza Gatica MD Unavailable +[phone] Esperanza Gatica MD Unavailable +[phone] Katrin Orellana PA-C Unavailable Cristina Hsieh [facility] Unavailable Alfreda Ray PA-C Unavailable Alfreda Ray PA-C Unavailable [phone] Cristina Hsieh [facility] Unavailable Dakota Tatum MD Unavailable Dakota Tatum MD Unavailable Srinivas Marie DO Unavailable [phone] Encounter Details Date Type Department Care Team (Late st Contact Info) Description 08/17/2017 MyC Medical Advice [address], [address] [place] [address] Cata Olivo MA Social History Tobacco Use Types Packs/Day Years Used Date Smoking Tobacco: Former Cigarettes 1 5 0 06/21/1963 - 06/21/1968 Smokeless Tobacco: Former Comments:not a smoker Alcohol Use Standard Drinks/Week Comments Yes 0 (1 standard drink = 0.6 oz pure alcohol) Very occasionally - 2 per month Comments No Sex and Gender Information Value Date Recorded Sex Assigned at Female 08/17/2018 7:56 AM COTTON FEEDER Legal Sex Female 4:24 AM COTTON FEEDER Gender Identity Female 08/17/2018 7:56 AM COTTON FEEDER Sexual Orientation Straight 08/17/2018 7: 56 AM COTTON FEEDER documented as of this encounter Plan of Treatment Upcoming Encounters Date Type Department Care Team (Late st Contact Info) Description 09/07/2024 10:00 AM CDT Office Visit [facility] [address] [place] [phone] Fransisco Eddy MD [address] [place] [address] 03/29/2025 3:40 PM CDT Office Visit [address] [phone] Alfreda Ray PA-C [facility] [place] [address] 31134 documented as of this encounter Visit Diagnoses Not on filedocumented in this encounter Additional Health Concerns Infection Onset Date Last Indicated Resolved Time Rule Out COVID-19 05/08/2021 05/08/2021 05/09/2021 9:08 PM COTTON FEEDER Assessment Noted Time PHQ-9 Depression Total Score: 0 08/18/19 17 7:09 AM COTTON FEEDER documented as of this encounter Care Teams Hydropulper Relationship Specialty Start Date End Date Esperanza Gatica MD PCP - General Family Practice 10/13/11 12/29/21 [place] [address] LISB[address] GARCIA [address] PCP - Assigned PCP 12/05/17 08/23/18 Alfreda Ray PA-C [address] [place] [address] 70098 PCP - General Family Medicine 12/30/21 [place] [address] LISBETH GARCIA 21746 Assigned PCP 12/05/17 09/30/19 [place] [address] LISB[address] GARCIA 55188 Assigned PCP 10/01/19 03/02/20 [place] [address] LISB[address] GARCIA 60806 Assigned PCP 03/03/20 05/25/20 [place] [address] [place] [address] Assigned PCP 05/26/20 09/28/20 [place] [address] LISBETH GARCIA 97154 Assigned PCP 09/29/20 07/31/22 Jesú[place] [address] [facility] [place] [address] Assigned Musculoskeletal Provider 10/20/20 04/17/22 Alfreda Ray PA-C [address] [place] [address] 510792 Referring Physician Family Medicine 12/31/21 Katrin Orellana PA-C [address] [place] [address] [phone] Physician Small Offset Printer Dermatology 12/31/21 Shanna Vang PA-C [address] 368004 Assigned Cancer Care Provider 01/10/22 Fransisco Eddy MD [address] [place] [address] 630355 Assigned Rheumatology Provider 05/09/22 [place] [address] [place] [address] Assigned Pain Medication Provider 06/29/22 09/04/22 [place] [address] [place] [address] Assigned PCP 08/15/22 08/28/22 Katrin Orellana PA-C [address] [place] [address] 030895 Assigned Surgical Provider 08/15/22 02/10/24 Cristina Hsieh [facility] [address] [place] [address] LISBETH HERNANDEZ [address] Pharmacist Pharmacist 09/07/22 Alfreda Ray PA-C [address] [place] [address] 264762 Assigned Pain Medication Provider 09/05/22 09/10/23 Alfreda Ray PA-C [address] [place] [address] 660072 Assigned PCP 08/29/22 Cristina Hsieh [facility] [address] [place] [address] [phone] Assigned MTM Pharmacist 09/26/22 Dakota Tatum MD [address] [place] [address] [phone] Cardiovascular Disease 03/25/23 Dakota Tatum MD [address] [place] [address] 00677 Assigned Heart and Vascular Provider 05/01/23 [place] [address] [address], [address] [address] Assigned Musculoskeletal Provider 04/12/24 documented as of this encounter
--- OUTSIDE RECORDS SUMMARY | 2024-06-22 23:14 | XMS_ITS | Encounter Summary ---
Author Organization [place] Address [address] [place] [address] Care Team Providers Care Bottoming Machine Operator Name Role Phone Esperanza Gatica MD Primary Care Provider + Esperanza Gatica MD Unavailable +[phone] Esperanza Gatica MD Unavailable +[phone] Esperanza Gatica MD Unavailable +[phone] Esperanza Gatica MD Unavailable +[phone] Esperanza Gatica MD Unavailable +[phone] Esperanza Gatica MD Unavailable +[phone] Jesús Orourke MD Unavailable Alfreda RayC Primary Care Provider + Alfreda Ray PA-C Unavailable + [phone] Katrin Orellana PA-C Unavailable +[phone] Shanna VangC Unavailable +[phone] Fransisco Eddy MD Unavailable +[phone] Esperanza Gatica MD Unavailable +[phone] Esperanza Gatica MD Unavailable +[phone] Katrin Orellana PA-C Unavailable Cristina Hsieh [facility] Unavailable RayAlfreda PA-C Unavailable +[phone] Cory Alfreda Liu PA-C Unavailable +[phone] Cristina Hsieh [facility] Unavailable [phone] Dakota Tatum MD Unavailable [phone] Dakota Tatum MD Unavailable [phone] Srinivas Marie DO Unavailable [phone] Reason for Visit * Reason Onset Date Comments Refill Request 03/18/2015 Lisinopril-HCTZ Encounter Details Date Type Department Care Team (Late st Contact Info) Description 03/18/2015 MyC Refill [address], [address] [place] [address] [place] [address] [place] [address] Refill Request (Lisinopril-HCTZ) Social History Tobacco Use Types Packs/Day Years Used Date Smoking Tobacco: Former Cigarettes 1 5 0 06/21/1968 - 06/21/1973 Smokeless Tobacco: Former Alcohol Use Standard Drinks/Week Comments Yes 0 (1 standard drink = 0.6 oz pure alcohol) Very occasionally - 2 per month Comments No Sex and Gender Information Value Date Recorded Sex Assigned at Female 08/17/2018 7:56 AM VEHICLE TECHNICIAN Legal Sex Female 4:24 AM VEHICLE TECHNICIAN Gender Identity Female 08/17/2018 7:56 AM VEHICLE TECHNICIAN Sexual Orientation Straight 08/17/2018 7: 56 AM VEHICLE TECHNICIAN documented as of this encounter Miscellaneous Notes * Telephone Encounter - Leigha Rinaldi RN - 03/18/2015 11:02 AM CDT Lisinopril-HCTZ Last Written Prescription Date: 12/24/2014 Last Fill Quantity: 90, # refills: 0 Last Office Visit with [facility] primary care provider: 12/06/2014 Next 5 appointments (look out 90 days) Apr 02, 2015 10:00 AM Pre-Op physical with Esperanza Gatica [facility], [address] [facility] [id number] POTASSIUM Date Value Ref Range Status 07/10/2014 4.3 3.4 - 5.3 mmol/L Final CREATININE Date Value Ref Range Status 07/10/2014 0.89 0.52 - 1.04 mg/dL Final BP Readings from Last 3 Encounters: 12/06/14 126/64 08/07/14 130/88 07/10/14 116/60 Prescription approved per [facility] Refill Protocol. Leigha Rinaldi RN * Telephone Encounter - Leigha Rinaldi RN - 03/18/2015 11:01 AM CDTMessage from [facility]: Original authorizing provider: MD Alexandria Brannon would like a refill of the following medications: lisinopril-hydrochlorothiazide (PRINZIDE,ZESTORETIC) 10-12.5 MG per tablet [Esperanza Gatica MD] Preferred pharmacy: [id number] Comment: documented in this encounter Plan of Treatment Upcoming Encounters Date Type Department Care Team (Late st Contact Info) Description 09/07/2024 10:00 AM CDT Office Visit [facility] [address] [phone] Fransisco Eddy MD [address] [place] [address] 779435 03/29/2025 3:40 PM CDT Office Visit [address] [phone] Alfreda Ray PA-C [address] [place] [address] 080072 documented as of this encounter Visit Diagnoses Diagnosis HTN (hypertension), benign Essential hypertension, benign documented in this encounter Additional Health Concerns Infection Onset Date Last Indicated Resolved Time Rule Out COVID-19 05/08/2021 05/08/2021 05/09/2021 9:08 PM VEHICLE TECHNICIAN documented as of this encounter Care Teams Bottoming Machine Operator Relationship Specialty Start Date End Date Esperanza Gatica MD PCP - General Family Practice 10/13/11 12/29/21 [place] [address] LISBETH GARCIA [address]141 PCP - Assigned PCP 12/05/17 08/23/18 Alfreda Ray PA-C [address] [place] [address] 57099 PCP - General Family Medicine 12/30/21 [place] [address] LISB[address] GARCIA [address]4041 Assigned PCP 12/05/17 09/30/19 [place] [address] LISBETH GARCIA 80879 Assigned PCP 10/01/19 03/02/20 [place] [address] LISBETH GARCIA 62893 Assigned PCP 03/03/20 05/25/20 [place] [address] LISBETH GARCIA 09912 Assigned PCP 05/26/20 09/28/20 [place] [address] [place] [address] Assigned PCP 09/29/20 07/31/22 [place] [address] [address] Assigned Musculoskeletal Provider 10/20/20 04/17/22 Alfreda Ray PA-C [address] [place] [address] 89983 Referring Physician Family Medicine 12/31/21 Katrin Orellana PA-C [address] [place] [address] Physician Bottler Helper Dermatology 12/31/21 Shanna Vang PA-C [address] [address] Assigned Cancer Care Provider 01/10/22 Fransisco Eddy MD [address] [place] [address] 14867 Assigned Rheumatology Provider 05/09/22 [place] [address] LISB[address] GARCIA 58711 Assigned Pain Medication Provider 06/29/22 09/04/22 [place] [address] [place] [address] Assigned PCP 08/15/22 08/28/22 Katrin Orellana PA-C [address] [place] [address] 84391 Assigned Surgical Provider 08/15/22 02/10/24 Cristina Hsieh [facility] [address] [facility] LISBETH HERNANDEZ [address] Pharmacist Pharmacist 09/07/22 Alfreda Ray PA-C [address] [place] [address] [phone] Assigned Pain Medication Provider 09/05/22 09/10/23 Alfreda Ray PA-C [address] [place] [address] 320142 Assigned PCP 08/29/22 Cristina Hsieh RPH [address] [place] [address] Assigned MTM Pharmacist 09/26/22 Dakota Tatum MD [address] [place] [address] 41974 Cardiovascular Disease 03/25/23 Dakota Tatum MD [address] [place] [address] 18333 Assigned Heart and Vascular Provider 05/01/23 [place] [address] [address] Assigned Musculoskeletal Provider 04/12/24 documented as of this encounter
--- OUTSIDE RECORDS SUMMARY | 2024-06-22 23:14 | XMS_ITS | Encounter Summary ---
Author Organization [place] Address [address] [place] [address] Care Team Providers Care Breaker Off Name Role Phone Esperanza Gatica MD Primary Care Provider + Esperanza Gatica MD Unavailable +[phone] Esperanza Gatica MD Unavailable +[phone] Esperanaz Gatica MD Unavailable +[phone] Esperanza Gatica MD Unavailable +900 Esperanza Gatica MD Unavailable +[phone] Esperanza Gatica MD Unavailable +[phone] Jesús Orourke MD Unavailable Alfreda RayC Primary Care Provider + Alfreda Ray PA-C Unavailable + [phone] Katrin Orellana PA-C Unavailable +[phone] Shanna VangC Unavailable +[phone] Fransisco Eddy MD Unavailable +[phone] Esperanza Gatica MD Unavailable +[phone] Esperanza Gatica MD Unavailable +[phone] Katrin Orellana PA-C Unavailable Cristina Hsieh [facility] Unavailable +[phone] RayAlfreda PA-C Unavailable +[phone] Cory Alfreda Liu PA-C Unavailable +[phone] Cristina Hsieh [facility] Unavailable +[phone] Dakota Tatum MD Unavailable [phone] Dakota Tatum MD Unavailable +[phone] Srinivas Marie DO Unavailable [phone] Reason for Visit * Reason Onset Date Comments Refill Request 02/07/2015 Zolpidem 5mg Encounter Details Date Type Department Care Team (Late st Contact Info) Description 02/07/2015 MyC Refill [address], [facility] [address] [place] [address] [place] [address] [place] [address] Refill Request (Zolpidem 5mg) Social History Tobacco Use Types Packs/Day Years Used Date Smoking Tobacco: Former Cigarettes 1 5 0 06/21/1968 - 06/21/1973 Smokeless Tobacco: Former Alcohol Use Standard Drinks/Week Comments Yes 0 (1 standard drink = 0.6 oz pure alcohol) Very occasionally - 2 per month Comments No Sex and Gender Information Value Date Recorded Sex Assigned at Female 08/17/2018 7:56 AM FELLMONGERING MACHINE OPERATOR Legal Sex Female 4:24 AM FELLMONGERING MACHINE OPERATOR Gender Identity Female 08/17/2018 7:56 AM FELLMONGERING MACHINE OPERATOR Sexual Orientation Straight 08/17/2018 7: 56 AM FELLMONGERING MACHINE OPERATOR documented as of this encounter Miscellaneous Notes * Telephone Encounter - Leigha Rinaldi RN - 02/07/2015 1:27 PM CDT Zolpidem 5mg Last Written Prescription Date: 12/06/2014 Last Fill Quantity: 90, # refills: 2 Last Office Visit with [facility] primary care provider: 12/06/2014 Future Office visit: Routing refill request to provider for review/approval because: Patient should have the prescription. Should have been given to her at her last office visit. Spoke to patient. She will contact her pharmacy for refills. Leigha Rinaldi RN * Telephone Encounter - Leigha Rinaldi RN - 02/07/2015 1:27 PM CDTMessage from MyChart: Original authorizing provider: MD Alexandria Brannon would like a refill of the following medications: zolpidem (AMBIEN) 5 MG tablet [Esperanza Gatica MD] Preferred pharmacy: [id number] Comment: documented in this encounter Plan of Treatment Upcoming Encounters Date Type Department Care Team (Late st Contact Info) Description 09/07/2024 10:00 AM CDT Office Visit [address] [phone] Fransisco Eddy MD [address] [place] [address] 148575 03/29/2025 3:40 PM CDT Office Visit [address] [phone] Alfreda Ray PA-C [address] [place] [address] 622812 documented as of this encounter Visit Diagnoses Diagnosis Insomnia, unspecified documented in this encounter Additional Health Concerns Infection Onset Date Last Indicated Resolved Time Rule Out COVID-19 05/08/2021 05/08/2021 05/09/2021 9:08 PM FELLMONGERING MACHINE OPERATOR documented as of this encounter Care Teams Breaker Off Relationship Specialty Start Date End Date Esperanza Gatica MD PCP - General Family Practice 10/13/11 12/29/21 [place] [address] [place] [address] PCP - Assigned PCP 12/05/17 08/23/18 Alfreda Ray PA-C [address] [place] [address] 84810 PCP - General Family Medicine 12/30/21 [place] [address] [place] [address] Assigned PCP 12/05/17 09/30/19 [place] [address] [place] [address] Assigned PCP 10/01/19 03/02/20 [place] [address] [place] [address] Assigned PCP 03/03/20 05/25/20 [place] [address] [place] [address] Assigned PCP 05/26/20 09/28/20 [place] [address] [place] [address] Assigned PCP 09/29/20 07/31/22 [place] [address] [place] LISBETH GALAN [address] Assigned Musculoskeletal Provider 10/20/20 04/17/22 Alfreda Ray PA-C [address] [place] [address] 147282 Referring Physician Family Medicine 12/31/21 Katrin Orellana PA-C [address] [place] [address] 554335 Physician Parer Dermatology 12/31/21 Shanna Vang PA-C [address] [place] [address] 623894 Assigned Cancer Care Provider 01/10/22 Fransisco Eddy MD [address] [place] [address] 655895 Assigned Rheumatology Provider 05/09/22 [place] [address] [place] [address] Assigned Pain Medication Provider 06/29/22 09/04/22 [place] [address] [place] [address] Assigned PCP 08/15/22 08/28/22 Katrin Orellana PA-C [address] [place] [address] 658765 Assigned Surgical Provider 08/15/22 02/10/24 Cristina Hsieh [facility] [address] [place] [address] Pharmacist Pharmacist 09/07/22 Alfreda Ray PA-C [address] [place] [address]25 Assigned Pain Medication Provider 09/05/22 09/10/23 Alfreda Ray PA-C [address] [place] [address] 21948 Assigned PCP 08/29/22 Cristina Hsieh, [facility] [address] [place] [address] Assigned MTM Pharmacist 09/26/22 Dakota Tatum MD [address] [place] [address] Cardiovascular Disease 03/25/23 Dakota Tatum MD [address] [place] [address] 59017 Assigned Heart and Vascular Provider 05/01/23 [place] [address] [place] , [address] [address] Assigned Musculoskeletal Provider 04/12/24 documented as of this encounter
--- OUTSIDE RECORDS SUMMARY | 2024-06-22 23:14 | XMS_ITS | Encounter Summary ---
Author Organization [place] Address [address] [place] [address] 19[address] Care Team Providers Care Senior Engineering Associate Name Role Phone Esperanza Gatica MD Primary Care Provider + Esperanza Gatica MD Unavailable +[phone] Esperanza Gatica MD Unavailable +[phone] Esperanza Gatica MD Unavailable +[phone] Esperanza Gatica MD Unavailable +[phone] Esperanza Gatica MD Unavailable +[phone] Esperanza Gatica MD Unavailable +[phone] Jesús Orourke MD Unavailable Alfreda RayC Primary Care Provider + Alfreda Ray PA-C Unavailable + [phone] Katrin Orellana PA-C Unavailable +[phone] Shanna VangC Unavailable +[phone] Fransisco Eddy MD Unavailable +[phone] Esperanza Gatica MD Unavailable +[phone] Esperanza Gatica MD Unavailable +[phone] Katrin Orellana PA-C Unavailable Cristina Hsieh [facility] Unavailable Cory Alfreda Liu PA-C Unavailable +[phone] Ho Raymustapha Liu PA-C Unavailable +[phone] Cristina Hsieh [facility] Unavailable +[phone] Dakota Tatum MD Unavailable [phone] Dakota Tatum MD Unavailable [phone] Srinivas Marie DO Unavailable [phone] Reason for Visit * Reason Onset Date Comments Refill Request 06/13/2015 Celebrex, Lisino pril Encounter Details Date Type Department Care Team (Late st Contact Info) Description 06/13/2015 MyC Refill [address], [address] [place] [address] [place] [address] [place] [address] Refill Request (Celebrex, Lisinopril) Social History Tobacco Use Types Packs/Day Years Used Date Smoking Tobacco: Former Cigarettes 1 5 0 06/21/1963 - 06/21/1968 Smokeless Tobacco: Former Alcohol Use Standard Drinks/Week Comments Yes 0 (1 standard drink = 0.6 oz pure alcohol) Very occasionally - 2 per month Comments No Sex and Gender Information Value Date Recorded Sex Assigned at Female 08/17/2018 7:56 AM PROPERTY TECHNICIAN Legal Sex Female 4:24 AM PROPERTY TECHNICIAN Gender Identity Female 08/17/2018 7:56 AM PROPERTY TECHNICIAN Sexual Orientation Straight 08/17/2018 7: 56 AM PROPERTY TECHNICIAN documented as of this encounter Miscellaneous Notes * Telephone Encounter - Leigha Rinaldi RN - 06/13/2015 9:16 AM CST Lisinopril, Celebrex Last Written Prescription Date: 03/17/2015 Last Fill Quantity: 90, # refills: 0 Last Office Visit with [facility] primary care provider: 04/08/2015 POTASSIUM Date Value Ref Range Status 07/10/2014 4.3 3.4 - 5.3 mmol/L Final CREATININE Date Value Ref Range Status 07/10/2014 0.89 0.52 - 1.04 mg/dL Final BP Readings from Last 3 Encounters: 04/08/15 112/60 12/06/14 126/64 08/07/14 130/88 Prescription approved per [facility] Refill Protocol. Leigha Rinaldi RN ERTY TECHNICIAN * Telephone Encounter - Leigha Rinaldi RN - 06/13/2015 9:16 AM [facility] Original authorizing provider: MD Alexandria Brannon would like a refill of the following medications: celecoxib (CELEBREX) 200 MG capsule [Esperanza Gatica MD] lisinopril-hydrochlorothiazide (PRINZIDE,ZESTORETIC) 10-12.5 MG per tablet [Esperanza Gatica MD] Preferred pharmacy: [facility] [id number] Comment: ERTY TECHNICIAN documented in this encounter Plan of Treatment Upcoming Encounters Date Type Department Care Team (Late st Contact Info) Description 09/07/2024 10:00 AM CDT Office Visit [facility] [address] [phone] Fransisco Eddy MD [address] [place] [address] [phone] 03/29/2025 3:40 PM CDT Office Visit [address] [phone] Alfreda Ray PA-C [address] [place] [address] [phone] documented as of this encounter Visit Diagnoses Diagnosis Osteoarthritis Osteoarthrosis, unspecified whether generalized or localized, unspecified site HTN (hypertension), benign Essential hypertension, benign documented in this encounter Additional Health Concerns Infection Onset Date Last Indicated Resolved Time Rule Out COVID-19 05/08/2021 05/08/2021 05/09/2021 9:08 PM PROPERTY TECHNICIAN documented as of this encounter Care Teams Senior Engineering Associate Relationship Specialty Start Date End Date Esperanza Gatica MD PCP - General Family Practice 10/13/11 12/29/21 [place] [address] [place] [address] PCP - Assigned PCP 12/05/17 08/23/18 Alfreda Ray PA-C [address] [place] [address] PCP - General Family Medicine 12/30/21 [place] [address] [place] [address] Assigned PCP 12/05/17 09/30/19 [place] [address] [place] [address] Assigned PCP 10/01/19 03/02/20 [place] [address] [place] [address] Assigned PCP 03/03/20 05/25/20 [place] [address] [place] [address] Assigned PCP 05/26/20 09/28/20 [place] [address] [place] [address] Assigned PCP 09/29/20 07/31/22 Jesú[place] [address] [place] [address] Assigned Musculoskeletal Provider 10/20/20 04/17/22 Alfreda Ray PA-C [address] [place], [place] 211162 Referring Physician Family Medicine 12/31/21 Katrin Orellana PA-C [address] [place] [address] [address] [place], [place] [phone] Physician Manager Party Dermatology 12/31/21 Shanna Vang PA-C [address] 486264 Assigned Cancer Care Provider 01/10/22 Fransisco Eddy MD [address] [place] [address] [phone] Assigned Rheumatology Provider 05/09/22 [place] [address] [place] [address] Assigned Pain Medication Provider 06/29/22 09/04/22 [place] [address] [place] [address] Assigned PCP 08/15/22 08/28/22 Katrin Orellana PA-C [address] [facility] [address] [place] [address] Assigned Surgical Provider 08/15/22 02/10/24 Cristina Hsieh [facility] [address] [facility] [place] [address] Pharmacist Pharmacist 09/07/22 Alfreda Ray PA-C [address] [place] [address] [phone] Assigned Pain Medication Provider 09/05/22 09/10/23 Alfreda Ray PA-C [address] [place] [address] [phone] Assigned PCP 08/29/22 Cristina Hsieh, [facility] [address] [address] Assigned MTM Pharmacist 09/26/22 Dakota Tatum MD [address] [place] [address] Cardiovascular Disease 03/25/23 Dakota Tatum MD [address] [place] [address] Assigned Heart and Vascular Provider 05/01/23 [place] [address] [address], [facility] [address] [place] [address] Assigned Musculoskeletal Provider 04/12/24 documented as of this encounter
--- OUTSIDE RECORDS SUMMARY | 2024-06-22 23:14 | XMS_ITS | Encounter Summary ---
Author Organization [place] Address [address] [place] [address] Care Team Providers Care Oracle Soa Consultant Name Role Phone Esperanza Gatica MD Primary Care Provider + Esperanza Gatica MD Unavailable +[phone] Esperanza Gatica MD Unavailable +[phone] Esperanza Gatica MD Unavailable +[phone] Esperanza Gatica MD Unavailable +[phone] Esperanza Gatica MD Unavailable +[phone] Esperanza Gatica MD Unavailable +[phone] Jesús Orourke MD Unavailable Alfreda RayC Primary Care Provider + Alfreda Ray PA-C Unavailable + [phone] Katrin Orellana PA-C Unavailable [phone] Shanna VangC Unavailable +[phone] Fransisco Eddy MD Unavailable [phone] Esperanza Gatica MD Unavailable +[phone] Esperanza Gatica MD Unavailable +[phone] Katrin Orellana PA-C Unavailable Cristina Hsieh [facility] Unavailable Cory Alfreda Liu PA-C Unavailable Ho Raymustapha Liu PA-C Unavailable [phone] Cristina Hsieh [facility] Unavailable Dakota Tatum MD Unavailable Dakota Tatum MD Unavailable [phone] Srinivas Marie DO Unavailable Reason for Visit * Reason Onset Date Comments Refill Request 01/20/2015 Simvastatin 20mg Encounter Details Date Type Department Care Team (Late st Contact Info) Description 01/20/2015 MyC Refill [address], [facility] [address] [place] [address] [place] [address] [facility] [address] Refill Request (Simvastatin 20mg) Social History Tobacco Use Types Packs/Day Years Used Date Smoking Tobacco: Former Cigarettes 1 5 0 06/21/1968 - 06/21/1973 Smokeless Tobacco: Former Alcohol Use Standard Drinks/Week Comments Yes 0 (1 standard drink = 0.6 oz pure alcohol) Very occasionally - 2 per month Comments No Sex and Gender Information Value Date Recorded Sex Assigned at Female 08/17/2018 7:56 AM PSYCHOLOGIST EDUCATIONAL Legal Sex Female 4:24 AM PSYCHOLOGIST EDUCATIONAL Gender Identity Female 08/17/2018 7:56 AM PSYCHOLOGIST EDUCATIONAL Sexual Orientation Straight 08/17/2018 7: 56 AM PSYCHOLOGIST EDUCATIONAL documented as of this encounter Miscellaneous Notes * Telephone Encounter - Leigha Rinaldi RN - 01/21/2015 8:04 AM CDT Simvastatin Last Written Prescription Date: 07/10/2014 Last Fill Quantity: 90, # refills: 1 Last Office Visit with [facility] primary care provider: 12/06/2014 CHOL 137 07/10/2014 HDL 54 07/10/2014 LDL 62 07/10/2014 TRIG 105 07/10/2014 CHOLHDLRATIO 2.5 07/10/2014 Prescription approved per [facility] Refill Protocol. Leigha Rinaldi RN * Telephone Encounter - Leigha Rinaldi RN - 01/21/2015 8:03 AM [facility] Original authorizing provider: MD Alexandria Brannon would like a refill of the following medications: simvastatin (ZOCOR) 20 MG tablet [Esperanza Gatica MD] Preferred pharmacy: [facility] #[id number] - [address] Comment: documented in this encounter Plan of Treatment Upcoming Encounters Date Type Department Care Team (Late st Contact Info) Description 09/07/2024 10:00 AM CDT Office Visit [address] [place] [phone] Fransisco Eddy MD [address] [place] [address] 03/29/2025 3:40 PM CDT Office Visit [address] [phone] Alfreda Ray PA-C [address] [place] [address] [phone] documented as of this encounter Visit Diagnoses Diagnosis Hyperlipidemia LDL goal <160 Other and unspecified hyperlipidemia documented in this encounter Additional Health Concerns Infection Onset Date Last Indicated Resolved Time Rule Out COVID-19 05/08/2021 05/08/2021 05/09/2021 9:08 PM PSYCHOLOGIST EDUCATIONAL documented as of this encounter Care Teams Oracle Soa Consultant Relationship Specialty Start Date End Date Esperanza Gatica MD PCP - General Family Practice 10/13/11 12/29/21 [place] [address] [place] [address] PCP - Assigned PCP 12/05/17 08/23/18 Alfreda Ray PA-C [address] [place] [address] PCP - General Family Medicine 12/30/21 [place] [address] [place] [address] Assigned PCP 12/05/17 09/30/19 [place] [address] [place] [address] Assigned PCP 10/01/19 03/02/20 [place] [address] [place] [address] Assigned PCP 03/03/20 05/25/20 [place] [address] [place] [address] Assigned PCP 05/26/20 09/28/20 [place] [address] [place] [address] Assigned PCP 09/29/20 07/31/22 Jesú[place] [address] [address] [place] [address] Assigned Musculoskeletal Provider 10/20/20 04/17/22 Alfreda Ray PA-C [address] [place] [address] [phone] Referring Physician Family Medicine 12/31/21 Katrin Orellana PA-C [address] [place] [address] 736125 Physician Bottom Polisher Dermatology 12/31/21 Shanna Vang PA-C [address] [place] [address] Assigned Cancer Care Provider 01/10/22 Fransisco Eddy MD [address] [place] [address] 626165 Assigned Rheumatology Provider 05/09/22 [place] [address] [place]ARC[place] [address] Assigned Pain Medication Provider 06/29/22 09/04/22 [place] [address] [place] [address] Assigned PCP 08/15/22 08/28/22 Katrin Orellana PA-C [address] [place] [address] Assigned Surgical Provider 08/15/22 02/10/24 Cristina Hsieh [facility] [address] [facility] [place] [address] Pharmacist Pharmacist 09/07/22 Alfreda Ray PA-C [address] [place] [address] Assigned Pain Medication Provider 09/05/22 09/10/23 Alfreda Ray PA-C [address] [place] [address] Assigned PCP 08/29/22 Cristina Hsieh, [facility] [address] [place] [address] Assigned MTM Pharmacist 09/26/22 Dakota Tatum MD [address] [place] [address] Cardiovascular Disease 03/25/23 Dakota Tatum MD [address] [place] [address] Assigned Heart and Vascular Provider 05/01/23 [place] [address] [address], [address] [address] Assigned Musculoskeletal Provider 04/12/24 documented as of this encounter
--- OUTSIDE RECORDS SUMMARY | 2024-06-22 23:14 | XMS_ITS | Encounter Summary ---
Author Organization [place] Address [address] [place] [address] Care Team Providers Care Network Support Analyst Name Role Phone Esperanza Gatica MD Primary Care Provider + Esperanza Gatica MD Unavailable +[phone] Esperanza Gatica MD Unavailable +[phone] Esperanza Gatica MD Unavailable +[phone] Esperanza Gatica MD Unavailable +[phone] Esperanza Gatica MD Unavailable +[phone] Esperanza Gatica MD Unavailable +[phone] Jesús Orourke MD Unavailable Alfreda RayC Primary Care Provider + Alfreda Ray PA-C Unavailable + [phone] Katrin Orellana PA-C Unavailable [phone] Shanna VangC Unavailable +[phone] Fransisco Eddy MD Unavailable [phone] Esperanza Gatica MD Unavailable +[phone] Esperanza Gatica MD Unavailable +[phone] Katrin Orellana PA-C Unavailable Cristina Hsieh [facility] Unavailable Alfreda Ray PA-C Unavailable Alfreda Ray PA-C Unavailable [phone] Cristina Hsieh [facility] Unavailable Dakota Tatum MD Unavailable Dakota Tatum MD Unavailable Srinivas Marie DO Unavailable Encounter Details Date Type Department Care Team (Late st Contact Info) Description 02/27/2015 MyC Medical Advice [address], [address] [place] [address] Fartun Silveira Social History Tobacco Use Types Packs/Day Years Used Date Smoking Tobacco: Former Cigarettes 1 5 0 06/21/1968 - 06/21/1973 Smokeless Tobacco: Former Alcohol Use Standard Drinks/Week Comments Yes 0 (1 standard drink = 0.6 oz pure alcohol) Very occasionally - 2 per month Comments No Sex and Gender Information Value Date Recorded Sex Assigned at Female 08/17/2018 7:56 AM CORN CUTTER OPERATOR Legal Sex Female 4:24 AM CORN CUTTER OPERATOR Gender Identity Female 08/17/2018 7:56 AM CORN CUTTER OPERATOR Sexual Orientation Straight 08/17/2018 7: 56 AM CORN CUTTER OPERATOR documented as of this encounter Plan of Treatment Upcoming Encounters Date Type Department Care Team (Late st Contact Info) Description 09/07/2024 10:00 AM CDT Office Visit [facility] [address] [phone] Fransisco Eddy MD [address] [place] [address] 03/29/2025 3:40 PM CDT Office Visit [address] [phone] Alfreda Ray PA-C [address] [place] [address] documented as of this encounter Visit Diagnoses Not on filedocumented in this encounter Additional Health Concerns Infection Onset Date Last Indicated Resolved Time Rule Out COVID-19 05/08/2021 05/08/2021 05/09/2021 9:08 PM CORN CUTTER OPERATOR documented as of this encounter Care Teams Network Support Analyst Relationship Specialty Start Date End Date Esperanza Gatica MD PCP - General Family Practice 10/13/11 12/29/21 [place] [address] [place] [address] PCP - Assigned PCP 12/05/17 08/23/18 Alfreda Ray PA-C [address] [place] [address] PCP - General Family Medicine 12/30/21 [place] [address] [place] [address] Assigned PCP 12/05/17 09/30/19 [place] [address] [place] [address] Assigned PCP 10/01/19 03/02/20 [place] [address] [place] [place] [address] Assigned PCP 03/03/20 05/25/20 [place] [address] [place] [address] Assigned PCP 05/26/20 09/28/20 [place] [address] [place] [address] Assigned PCP 09/29/20 07/31/22 [place] [address] [address] Assigned Musculoskeletal Provider 10/20/20 04/17/22 Alfreda Ray PA-C [address] [place] [address] 215292 Referring Physician Family Medicine 12/31/21 Katrin Orellana PA-C [address] [place] [address] 98 [place], [place] 105[address] Physician Help Desk Supervisor Dermatology 12/31/21 Shanna Vang PA-C [address] [place], [place] 330[address] Assigned Cancer Care Provider 01/10/22 Fransisco Eddy MD [address] [place] [address] Assigned Rheumatology Provider 05/09/22 [place] [address] [place] [address] Assigned Pain Medication Provider 06/29/22 09/04/22 [place] [address] [place] [address] Assigned PCP 08/15/22 08/28/22 Katrin Orellana PA-C [address] [place] [address] [address] [place] [address] Assigned Surgical Provider 08/15/22 02/10/[address] [facility] [address] [facility] [place] [address] Pharmacist Pharmacist 09/07/22 Alfreda Ray PA-C [address] [place] [address] 849042 Assigned Pain Medication Provider 09/05/22 09/10/23 Alfreda Ray PA-C [address] [place] [address] 738512 Assigned PCP 08/29/22 Cristina Hsieh, [facility] [address] [address] Assigned MTM Pharmacist 09/26/22 Dakota Tatum MD [address] [place] [address] [phone] Cardiovascular Disease 03/25/23 Dakota Tatum MD [address] [place] [address] Assigned Heart and Vascular Provider 05/01/23 [place] [address] [address], [facility] [address] [place] [address] Assigned Musculoskeletal Provider 04/12/24 documented as of this encounter
--- OUTSIDE RECORDS SUMMARY | 2024-06-22 23:14 | XMS_ITS | Encounter Summary ---
Author Organization [facility] Address [address] [place] [address] Care Team Providers Care Doctor'S Assistant Name Role Phone Esperanza Gatica MD Primary Care Provider + Esperanza Gatica MD Unavailable +[phone] Esperanza Gatica MD Unavailable +[phone] Esperanza Gatica MD Unavailable +[phone] Esperanza Gatica MD Unavailable +[phone] Esperanza Gatica MD Unavailable +[phone] Esperanza Gatica MD Unavailable +[phone] Jesús Orourke MD Unavailable Alfreda RayC Primary Care Provider + Alfreda Ray PA-C Unavailable + [phone] Katrin Orellana PA-C Unavailable +[phone] Shanna VangC Unavailable +[phone] Fransisco Eddy MD Unavailable +[phone] Esperanza Gatica MD Unavailable +[phone] Esperanza Gatica MD Unavailable +[phone] Katrin Orellana PA-C Unavailable Cristina Hsieh [facility] Unavailable Cory Alfreda Liu PA-C Unavailable Ho Raymustapha Liu PA-C Unavailable +[phone] Cristina Hsieh [facility] Unavailable Dakota Tatum MD Unavailable Dakota Tatum MD Unavailable [phone] Srinivas Marie DO Unavailable Reason for Visit * Reason Onset Date Comments Refill Request 07/04/2015 Edilberto Syed Encounter Details Date Type Department Care Team (Late st Contact Info) Description 07/04/2015 Migdalia Alcaraz [address], [address] [place] [address] [place] [address] [place] [address] Refill Request (Edilberto Syed) Social History Tobacco Use Types Packs/Day Years Used Date Smoking Tobacco: Former Cigarettes 1 5 0 06/21/1963 - 06/21/1968 Smokeless Tobacco: Former Alcohol Use Standard Drinks/Week Comments Yes 0 (1 standard drink = 0.6 oz pure alcohol) Very occasionally - 2 per month Comments No Sex and Gender Information Value Date Recorded Sex Assigned at Female 08/17/2018 7:56 AM HEMODIALYSIS LAB TECHNICIAN Legal Sex Female 4:24 AM HEMODIALYSIS LAB TECHNICIAN Gender Identity Female 08/17/2018 7:56 AM HEMODIALYSIS LAB TECHNICIAN Sexual Orientation Straight 08/17/2018 7: 56 AM HEMODIALYSIS LAB TECHNICIAN documented as of this encounter Miscellaneous Notes * Telephone Encounter - Leigha Rinaldi RN - 07/04/2015 10:51 AM CST Deannecor Last Written Prescription Date: 01/21/2015 Last Fill Quantity: 90, # refills: 1 Last Office Visit with [facility] primary care provider: 04/08/2015 CHOL 137 07/10/2014 HDL 54 07/10/2014 LDL 62 07/10/2014 TRIG 105 07/10/2014 CHOLHDLRATIO 2.5 07/10/2014 Tenormin Last Written Prescription Date: 01/15/2015 Last Fill Quantity: 90, # refills: 1 Last Office Visit with [facility] primary care provider: 04/08/2015 Future Office Visit: BP Readings from Last 3 Encounters: 04/08/15 112/60 12/06/14 126/64 08/07/14 130/88 Medication is being filled for 1 time refill only due to: Patient needs labs Cholesterol. Leigha Rinaldi RN DIALYSIS LAB TECHNICIAN * Telephone Encounter - Leigha Rinaldi RN - 07/04/2015 10:51 AM CSTMessage from [facility]: Original authorizing provider: MD Alexandria Brannon would like a refill of the following medications: atenolol (TENORMIN) 25 MG tablet [Esperanza Gatica MD] simvastatin (ZOCOR) 20 MG tablet [Esperanza Gatica MD] Preferred pharmacy: [id number] Comment: I'm not out of Simvastatin, but we are leaving for a couple of weeks on the & I want to besure I have enough to last until we return. DIALYSIS LAB TECHNICIAN documented in this encounter Plan of Treatment Upcoming Encounters Date Type Department Care Team (Late st Contact Info) Description 09/07/2024 10:00 AM CDT Office Visit [facility] [address] [phone] Fransisco Eddy MD [address] [place] [address] [phone] 03/29/2025 3:40 PM CDT Office Visit [address] [phone] Alfreda Ray PA-C [address] [place] [address] documented as of this encounter Visit Diagnoses Diagnosis HTN (hypertension), benign Essential hypertension, benign Hyperlipidemia LDL goal <160 Other and unspecified hyperlipidemia documented in this encounter Additional Health Concerns Infection Onset Date Last Indicated Resolved Time Rule Out COVID-19 05/08/2021 05/08/2021 05/09/2021 9:08 PM HEMODIALYSIS LAB TECHNICIAN documented as of this encounter Care Teams Doctor'S Assistant Relationship Specialty Start Date End Date Esperanza Gatica MD PCP - General Family Practice 10/13/11 12/29/21 [place] [address] [place] [place]ARCIA [address] PCP - Assigned PCP 12/05/17 08/23/18 Alfreda Ray PA-C [address] [place] [address] PCP - General Family Medicine 12/30/21 [place] [address] [address] [address] Assigned PCP 12/05/17 09/30/19 [place] [address] [address] [place] [address] Assigned PCP 10/01/19 03/02/20 [place] [address] [place] [place] [address] Assigned PCP 03/03/20 05/25/20 [place] [address] [place] [address] Assigned PCP 05/26/20 09/28/20 [place] [address] [place] [address] Assigned PCP 09/29/20 07/31/22 [place] [address] [place] [address] Assigned Musculoskeletal Provider 10/20/20 04/17/22 Alfreda Ray PA-C [address] [place] [address] 144302 Referring Physician Family Medicine 12/31/21 Katrin Orellana PA-C [address] [place] [address] [address] [place], [place] [phone] Physician Office Automation Technician Dermatology 12/31/21 Shanna Vang PA-C [address] [place] [address] [phone] Assigned Cancer Care Provider 01/10/22 Fransisco Eddy MD [address] [place] [address] 827135 Assigned Rheumatology Provider 05/09/22 [place] [address] [place] [address] Assigned Pain Medication Provider 06/29/22 09/04/22 [place] [address] [place] [address] Assigned PCP 08/15/22 08/28/22 Katrin Orellana PA-C [address] [place] [address] 98 [place], [place] 675455 Assigned Surgical Provider 08/15/22 02/10/24 Cristina Hsieh [facility] [address] [facility] [place]DEZ [address] Pharmacist Pharmacist 09/07/22 Alfreda Ray PA-C [address] [place] [address] 066972 Assigned Pain Medication Provider 09/05/22 09/10/23 Alfreda Ray PA-C [address] [place] [address] 665712 Assigned PCP 08/29/22 Cristina Hsieh [facility] [address] [address] Assigned MTM Pharmacist 09/26/22 Dakota Tatum MD [address] [place] [address] 208185 Cardiovascular Disease 03/25/23 Dakota Tatum MD [address] [place] [address] Assigned Heart and Vascular Provider 05/01/23 [place] [address] [address], [facility] [address] [place] [address] Assigned Musculoskeletal Provider 04/12/24 documented as of this encounter
--- OUTSIDE RECORDS SUMMARY | 2024-06-22 23:14 | XMS_ITS | Encounter Summary ---
Author Organization [facility] Address [address] [place] [address] Care Team Providers Care Shirt Line Operator Name Role Phone Esperanza Gatica MD Primary Care Provider + Esperanza Gatica MD Unavailable +[phone] Esperanza Gatica MD Unavailable +[phone] Esperanza Gatica MD Unavailable +[phone] Esperanza Gatica MD Unavailable +[phone] Esperanza Gatica MD Unavailable +[phone] Esperanza Gatica MD Unavailable +[phone] Jesús Orourke MD Unavailable Alfreda RayC Primary Care Provider + Alfreda Ray PA-C Unavailable + [phone] Katrin Orellana PA-C Unavailable [phone] Shanna VangC Unavailable +[phone] Fransisco Eddy MD Unavailable [phone] Esperanza Gatica MD Unavailable +[phone] Esperanza Gatica MD Unavailable +[phone] Katrin Orellana PA-C Unavailable Cristina Hsieh [facility] Unavailable Cory Alfreda Liu PA-C Unavailable [phone] Ho Raymustapha Liu PA-C Unavailable [phone] Cristina Hsieh [facility] Unavailable [phone] Dakota Tatum MD Unavailable [phone] Dakota Tatum MD Unavailable [phone] Srinivas Marie DO Unavailable [phone] Reason for Visit * Reason Onset Date Comments Refill Request 02/28/2015 Tramadol 50mg Encounter Details Date Type Department Care Team (Late st Contact Info) Description 02/28/2015 MyC Refill [address], [facility] [address] [place] [address] [place] [address] [place] [address] Refill Request (Tramadol 50mg) Social History Tobacco Use Types Packs/Day Years Used Date Smoking Tobacco: Former Cigarettes 1 5 0 06/21/1968 - 06/21/1973 Smokeless Tobacco: Former Alcohol Use Standard Drinks/Week Comments Yes 0 (1 standard drink = 0.6 oz pure alcohol) Very occasionally - 2 per month Comments No Sex and Gender Information Value Date Recorded Sex Assigned at Female 08/17/2018 7:56 AM NEUROLOGY TECHNICIAN Legal Sex Female 4:24 AM NEUROLOGY TECHNICIAN Gender Identity Female 08/17/2018 7:56 AM NEUROLOGY TECHNICIAN Sexual Orientation Straight 08/17/2018 7: 56 AM NEUROLOGY TECHNICIAN documented as of this encounter Miscellaneous Notes * Telephone Encounter - Leigha Rinaldi RN - 02/28/2015 10:08 AM CDT Tramadol 50mg Last Written Prescription Date: 12/06/2014 Last Fill Quantity: 90, # refills: 0 Last Office Visit with [facility] primary care provider: 12/06/2014 Future Office visit: Routing refill request to provider for review/approval because: Drug not on the [facility] refill protocol or controlled substance. Leigha Rnialdi RN * Telephone Encounter - Leigha Rinaldi RN - 02/28/2015 10:[address] [facility]: Original authorizing provider: Esperanza Gatica MD Alexandria Bradshaw would like a refill of the following medications: traMADol (ULTRAM) 50 MG tablet [Esperanza Gatica MD] Preferred pharmacy: [id number] Comment: documented in this encounter Plan of Treatment Upcoming Encounters Date Type Department Care Team (Late st Contact Info) Description 09/07/2024 10:00 AM CDT Office Visit [address] [phone] Fransisco Eddy MD [address] [place] [address] 03/29/2025 3:40 PM CDT Office Visit [address] [phone] Alfreda Ray PA-C [address] [place] [address] 984592 documented as of this encounter Visit Diagnoses Diagnosis HTN (hypertension), benign Essential hypertension, benign documented in this encounter Additional Health Concerns Infection Onset Date Last Indicated Resolved Time Rule Out COVID-19 05/08/2021 05/08/2021 05/09/2021 9:08 PM NEUROLOGY TECHNICIAN documented as of this encounter Care Teams Shirt Line Operator Relationship Specialty Start Date End Date Esperanza Gatica MD PCP - General Family Practice 10/13/11 12/29/21 [place] [address] [place] [address] PCP - Assigned PCP 12/05/17 08/23/18 Alfreda Ray PA-C [address] [place] [address], [place] [address] PCP - General Family Medicine 12/30/21 [place] [address] [place] [address] Assigned PCP 12/05/17 09/30/19 [place] [address] [place] [address] Assigned PCP 10/01/19 03/02/20 [place] [address] [place] [address] Assigned PCP 03/03/20 05/25/20 [place] [address] [place] [address] Assigned PCP 05/26/20 09/28/20 [place] [address] [place] [address] Assigned PCP 09/29/20 07/31/22 Jesú[place] [address] [place] [address] Assigned Musculoskeletal Provider 10/20/20 04/17/22 Alfreda Ray PA-C [address] [place] [address] Referring Physician Family Medicine 12/31/21 Katrin Orellana PA-C [address] [place] [address] 392755 Physician Chief Digital Officer Dermatology 12/31/21 Shanna Vang PA-C [address] 636844 Assigned Cancer Care Provider 01/10/22 Fransisco Eddy MD [address] [place] [address] 979265 Assigned Rheumatology Provider 05/09/22 [place] [address] [place] [address] Assigned Pain Medication Provider 06/29/22 09/04/22 [place] [address] [place] [address] Assigned PCP 08/15/22 08/28/22 Katrin Orellana PA-C [address] [place] [address] 490215 Assigned Surgical Provider 08/15/22 02/10/24 Cristina Hsieh, [facility] [address] [facility] [place] [address] Pharmacist Pharmacist 09/07/22 Alfreda Ray PA-C [address] [place] [address] Assigned Pain Medication Provider 09/05/22 09/10/23 Alfreda Ray PA-C [address] [place] [address] Assigned PCP 08/29/22 Cristina Hsieh, [facility] [address] [address] Assigned MTM Pharmacist 09/26/22 Dakota Tatum MD [address] [place] [address] Cardiovascular Disease 03/25/23 Dakota Tatum MD [address] [place] [address] Assigned Heart and Vascular Provider 05/01/23 [place] [address] [place] , [address] [address] Assigned Musculoskeletal Provider 04/12/24 documented as of this encounter
--- OUTSIDE RECORDS SUMMARY | 2024-06-22 23:14 | XMS_ITS | Encounter Summary ---
Author Organization [facility] Address [address] [place] [address] Care Team Providers Care Engine Tester Name Role Phone Esperanza Gatica MD Primary Care Provider + Esperanza Gatica MD Unavailable +[phone] Esperanza Gatica MD Unavailable +[phone] Esperanza Gatica MD Unavailable +[phone] Esperanza Gatica MD Unavailable +[phone] Esperanza Gatica MD Unavailable +[phone] Esperanza Gatica MD Unavailable +[phone] Jesús Orourke MD Unavailable Alfreda RayC Primary Care Provider + Alfreda Ray PA-C Unavailable + [phone] Katrin Orellana PA-C Unavailable +[phone] Shanna VangC Unavailable +[phone] Fransisco Eddy MD Unavailable [phone] Esperanza Gatica MD Unavailable +[phone] Esperanza Gatica MD Unavailable +[phone] Katrin Orellana PA-C Unavailable Cristina Hsieh [facility] Unavailable +[phone] Cory Alfreda Liu PA-C Unavailable +[phone] Cory Alfreda Liu PA-C Unavailable [phone] Cristina Hsieh [facility] Unavailable [phone] Dakota Tatum MD Unavailable [phone] Dakota Tatum MD Unavailable [phone] Srinivas Marie DO Unavailable [phone] Reason for Visit * Reason Onset Date Comments Refill Request 09/11/2015 Lisinopril-HCTZ Encounter Details Date Type Department Care Team (Late st Contact Info) Description 09/11/2015 MyC Refill [address], [address] [place] [address] [place] [address] [place] [address] Refill Request (Lisinopril-HCTZ) Social History [...] Sex Assigned at Female 08/17/2018 7:56 AM MARKETING ANALYTICS MANAGER Legal Sex Female 4:24 AM MARKETING ANALYTICS MANAGER Gender Identity Female 08/17/2018 7:56 AM MARKETING ANALYTICS MANAGER Sexual Orientation Straight 08/17/2018 7: 56 AM MARKETING ANALYTICS MANAGER documented as of this encounter Miscellaneous Notes * Telephone Encounter - Leigha Rinaldi RN - 09/11/2015 11:44 AM CDT Lisinopril-HCTZ Last Written Prescription Date: 08/13/2015 Last Fill Quantity: 90, # refills: 1 Last Office Visit with [facility], [facility] or [facility] prescribing provider: 08/13/2015 POTASSIUM Date Value Ref Range Status 08/13/2015 3.9 3.4 - 5.3 mmol/L Final CREATININE Date Value Ref Range Status 08/13/2015 0.87 0.52 - 1.04 mg/dL Final BP Readings from Last 3 Encounters: 08/13/15 136/66 04/08/15 112/60 12/06/14 126/64 Leigha Rinaldi RN * Telephone Encounter - Leigha Rinaldi RN - 09/11/2015 11:44 AM CDTMessage from [facility]: Original authorizing provider: MD Alexandria Brannon would like a refill of the following medications: lisinopril-hydrochlorothiazide (PRINZIDE,ZESTORETIC) 10-12.5 MG per tablet [Esperanza Gatica MD] Preferred pharmacy: [facility] [address] Comment: documented in this encounter Plan of Treatment Upcoming Encounters Date Type Department Care Team (Late st Contact Info) Description 09/07/2024 10:00 AM CDT Office Visit [facility] [address] [phone] Fransisco Eddy MD [address] [place] [address] [phone] 03/29/2025 3:40 PM CDT Office Visit [address] [phone] Alfreda Ray PA-C [address] [place] [address] [phone] documented as of this encounter Visit Diagnoses Diagnosis HTN (hypertension), benign Essential hypertension, benign documented in this encounter Additional Health Concerns Infection Onset Date Last Indicated Resolved Time Rule Out COVID-19 05/08/2021 05/08/2021 05/09/2021 9:08 PM MARKETING ANALYTICS MANAGER Assessment Noted Time PHQ-9 Depression Total Score: 0 08/14/19 16 8:10 AM MARKETING ANALYTICS MANAGER documented as of this encounter Care Teams Engine Tester Relationship Specialty Start Date End Date Esperanza Gatica MD PCP - General Family Practice 10/13/11 12/29/21 [place] [address] [place] [address] PCP - Assigned PCP 12/05/17 08/23/18 Alfreda Ray PA-C [address] [place] [address] PCP - General Family Medicine 12/30/21 [place] [address] [place] [address] Assigned PCP 12/05/17 09/30/19 [place] [address] [place] [address] Assigned PCP 10/01/19 03/02/20 [place] [address] [place] [address] Assigned PCP 03/03/20 05/25/20 [place] [address] [place] [address] Assigned PCP 05/26/20 09/28/20 [place] [address] [place]ARC[place] [address] Assigned PCP 09/29/20 07/31/22 Jesú[place] [address] [place] [address] Assigned Musculoskeletal Provider 10/20/20 04/17/22 Alfreda Ray PA-C [address] [place], [place] 911142 Referring Physician Family Medicine 12/31/21 Katrin Orellana PA-C [address] [place] [address] 98 [place], [place] 666765 Physician Compounder Flavorings Dermatology 12/31/21 Shanna Vang PA-C [address] [place], [place] 536[address] Assigned Cancer Care Provider 01/10/22 Fransisco Eddy MD [address] [place] [address] 283515 Assigned Rheumatology Provider 05/09/22 [place] [address] [address] [address] Assigned Pain Medication Provider 06/29/22 09/04/22 [place] [address] [place] [place] [address] Assigned PCP 08/15/22 08/28/22 Katrin Orellana PA-C [address] [facility] 98 [place] [address] Assigned Surgical Provider 08/15/22 02/10/24 Cristina Hsieh [facility] [address] [facility] [place] [address] Pharmacist Pharmacist 09/07/22 Alfreda Ray PA-C [address] [place] [address] [phone] Assigned Pain Medication Provider 09/05/22 09/10/23 Alfreda Ray PA-C [address] [place] [address] 780532 Assigned PCP 08/29/22 Cristina Hsieh [facility] [address] [address] Assigned MTM Pharmacist 09/26/22 Dakota Tatum MD [address] [place] [address] Cardiovascular Disease 03/25/23 Dakota Tatum MD [address] [place] [address] Assigned Heart and Vascular Provider 05/01/23 [place] [address] [place] , [facility] [address] [place] [address] Assigned Musculoskeletal Provider 04/12/24 documented as of this encounter
--- OUTSIDE RECORDS SUMMARY | 2024-06-22 23:14 | XMS_ITS | Encounter Summary ---
Author Organization [place] Address [address] [place] [address] Care Team Providers Care Quarry Extraction Worker Name Role Phone Esperanza Gatica MD Primary Care Provider + Esperanza Gatica MD Unavailable +[phone] Esperanza Gatica MD Unavailable +[phone] Esperanza Gatica MD Unavailable +[phone] Esperanza Gatica MD Unavailable +[phone] Esperanza Gatica MD Unavailable +[phone] Esperanza Gatica MD Unavailable +[phone] Jesús Orourke MD Unavailable Alfreda RayC Primary Care Provider + Alfreda Ray PA-C Unavailable + [phone] Katrin Orellana PA-C Unavailable +[phone] Shanna VangC Unavailable +[phone] Fransisco Eddy MD Unavailable +[phone] Esperanza Gatica MD Unavailable +[phone] Esperanza Gatica MD Unavailable +[phone] Katrin Orellana PA-C Unavailable +[phone] Cristina Hsieh [facility] Unavailable Cory Alfreda Liu PA-C Unavailable +[phone] Cory Alfreda Liu PA-C Unavailable +[phone] Cristina Hsieh [facility] Unavailable +[phone] Dakota Tatum MD Unavailable Dakota Tatum MD Unavailable [phone] Srinivas Marie DO Unavailable [phone] Reason for Visit * Reason Onset Date Comments Refill Request 01/15/2015 Atenolol 25mg Encounter Details Date Type Department Care Team (Late st Contact Info) Description 01/15/2015 MyC Refill [address], [facility] [address] [place] [address] [place] [address] [place] [address] Refill Request (Atenolol 25mg) Social History Tobacco Use Types Packs/Day Years Used Date Smoking Tobacco: Former Cigarettes 1 5 0 06/21/1968 - 06/21/1973 Smokeless Tobacco: Former Alcohol Use Standard Drinks/Week Comments Yes 0 (1 standard drink = 0.6 oz pure alcohol) Very occasionally - 2 per month Comments No Sex and Gender Information Value Date Recorded Sex Assigned at Female 08/17/2018 7:56 AM BLACK MILL OPERATOR Legal Sex Female 4:24 AM BLACK MILL OPERATOR Gender Identity Female 08/17/2018 7:56 AM BLACK MILL OPERATOR Sexual Orientation Straight 08/17/2018 7: 56 AM BLACK MILL OPERATOR documented as of this encounter Miscellaneous Notes * Telephone Encounter - Leigha Rinaldi RN - 01/15/2015 10:29 AM CDT Atenolol 25mg Last Written Prescription Date: 07/10/2014 Last Fill Quantity: 90, # refills: 1 Last Office Visit with [facility] primary care provider: 12/06/2014 Future Office Visit: BP Readings from Last 3 Encounters: 12/06/14 126/64 08/07/14 130/88 07/10/14 116/60 Prescription approved per [facility] Refill Protocol. Leigha Rinaldi RN * Telephone Encounter - Leigha Rinaldi RN - 01/15/2015 10:28 AM CDTMessage from [facility]: Original authorizing provider: MD Alexandria Brannon would like a refill of the following medications: atenolol (TENORMIN) 25 MG tablet [Esperanza Gatica MD] Preferred pharmacy: [id number] [address] Comment: documented in this encounter Plan of Treatment Upcoming Encounters Date Type Department Care Team (Late st Contact Info) Description 09/07/2024 10:00 AM CDT Office Visit [facility] Specialty [address] [phone] Fransisco Eddy MD [address] [place] [address] [phone] 03/29/2025 3:40 PM CDT Office Visit [address] [phone] Alfreda Ray PA-C [address] [place] [address] 449322 documented as of this encounter Visit Diagnoses Diagnosis HTN (hypertension), benign Essential hypertension, benign documented in this encounter Additional Health Concerns Infection Onset Date Last Indicated Resolved Time Rule Out COVID-19 05/08/2021 05/08/2021 05/09/2021 9:08 PM BLACK MILL OPERATOR documented as of this encounter Care Teams Quarry Extraction Worker Relationship Specialty Start Date End Date Esperanza Gatica MD PCP - General Family Practice 10/13/11 12/29/21 [place] [address] [place] [address] PCP - Assigned PCP 12/05/17 08/23/18 Alfreda Ray PA-C [address] [place] [address] PCP - General Family Medicine 12/30/21 [place] [address] [place], [place] [address] Assigned PCP 12/05/17 09/30/19 [place] [address] [place], [place] [address] Assigned PCP 10/01/19 03/02/20 [place] [address] [place], [place] [address] Assigned PCP 03/03/20 05/25/20 [place] [address] [place] [address] Assigned PCP 05/26/20 09/28/20 [place] [address] [place] [address] Assigned PCP 09/29/20 07/31/22 Jesú[place] [address] [place] [address] Assigned Musculoskeletal Provider 10/20/20 04/17/22 Alfreda Ray PA-C [address] [place] [address] 325382 Referring Physician Family Medicine 12/31/21 Katrin Orellana PA-C [address] [place] [address] Physician Wire Stitcher Dermatology 12/31/21 Shanna Vang PA-C [address] [place] [address] Assigned Cancer Care Provider 01/10/22 Fransisco Eddy MD [address] [place] [address] [phone] Assigned Rheumatology Provider 05/09/22 [place] [address] [place] [address] Assigned Pain Medication Provider 06/29/22 09/04/22 [place] [address] [place] [place] [address] Assigned PCP 08/15/22 08/28/22 Katrin Orellana PA-C [address] [place] [address] Assigned Surgical Provider 08/15/22 02/10/24 Cristina Hsieh [facility] [address] [address] Pharmacist Pharmacist 09/07/22 Alfreda Ray PA-C [address] [place] [address]42 Assigned Pain Medication Provider 09/05/22 09/10/23 Alfreda Ray PA-C [address] [place] [address] Assigned PCP 08/29/22 Cristina Hsieh, [facility] [address] [place] [address] Assigned MTM Pharmacist 09/26/22 Dakota Tatum MD [address] [place] [address] Cardiovascular Disease 03/25/23 Dakota Tatum MD [address] [place] [address] Assigned Heart and Vascular Provider 05/01/23 [place] [address] [place] , [address] [address] Assigned Musculoskeletal Provider 04/12/24 documented as of this encounter
--- OUTSIDE RECORDS SUMMARY | 2024-06-22 23:14 | XMS_ITS | Encounter Summary ---
Author Organization [place] Address [address] [place] [address] Care Team Providers Care Automobile Locator Name Role Phone Esperanza Gatica MD Primary Care Provider + Esperanza Gatica MD Unavailable +[phone] Esperanza Gatica MD Unavailable +[phone] Esperanza Gatica MD Unavailable +[phone] Esperanza Gatica MD Unavailable +[phone] Esperanza Gatica MD Unavailable +[phone] Esperanza Gatica MD Unavailable +[phone] Jesús Orourke MD Unavailable Alfreda RayC Primary Care Provider + Alfreda Ray PA-C Unavailable + [phone] Katrin Orellana PA-C Unavailable [phone] Shanna VangC Unavailable +[phone] Fransisco Eddy MD Unavailable [phone] Esperanza Gatica MD Unavailable +[phone] Esperanza Gatica MD Unavailable +[phone] Katrin Orellana PA-C Unavailable Cristina Hsieh [facility] Unavailable Cory Alfreda Liu PA-C Unavailable +[phone] Ho Raymustapha Liu PA-C Unavailable +[phone] Cristina Hsieh [facility] Unavailable [phone] Dakota Tatum MD Unavailable [phone] Dakota Tatum MD Unavailable [phone] Srinivas Marie DO Unavailable Reason for Visit * Reason Onset Date Comments Refill Request 02/07/2015 Trazodone 50mg Encounter Details Date Type Department Care Team (Late st Contact Info) Description 02/07/2015 MyC Refill [address], [facility] [address] [place] [address] [place] [address] [place] [address] Refill Request (Trazodone 50mg) Social History Tobacco Use Types Packs/Day Years Used Date Smoking Tobacco: Former Cigarettes 1 5 0 06/21/1968 - 06/21/1973 Smokeless Tobacco: Former Alcohol Use Standard Drinks/Week Comments Yes 0 (1 standard drink = 0.6 oz pure alcohol) Very occasionally - 2 per month Comments No Sex and Gender Information Value Date Recorded Sex Assigned at Female 08/17/2018 7:56 AM METER AND SERVICE LINE INSPECTOR Legal Sex Female 4:24 AM METER AND SERVICE LINE INSPECTOR Gender Identity Female 08/17/2018 7:56 AM METER AND SERVICE LINE INSPECTOR Sexual Orientation Straight 08/17/2018 7: 56 AM METER AND SERVICE LINE INSPECTOR documented as of this encounter Miscellaneous Notes * Telephone Encounter - Leigha Rinaldi RN - 02/07/2015 1:33 PM CDT Spoke with patient. She should have refills. She will contact her pharmacy. Leigha Rinaldi RN * Telephone Encounter - Leigha Rinaldi RN - 02/07/2015 1:33 PM CDTMessage from MyChart: Original authorizing provider: MD Alexandria Brannon would like a refill of the following medications: traZODone (DESYREL) 50 MG tablet [Esperanza Gatica MD] Preferred pharmacy: [facility] #[id number] - [address] Comment: documented in this encounter Plan of Treatment Upcoming Encounters Date Type Department Care Team (Late st Contact Info) Description 09/07/2024 10:00 AM CDT Office Visit [facility] Specialty [address] [place] [phone] Fransisco Eddy MD [address] [place] [address] [phone] 03/29/2025 3:40 PM CDT Office Visit [address] [phone] Alfreda Ray PA-C [address] [place] [address] [phone] documented as of this encounter Visit Diagnoses Diagnosis Insomnia, unspecified documented in this encounter Additional Health Concerns Infection Onset Date Last Indicated Resolved Time Rule Out COVID-19 05/08/2021 05/08/2021 05/09/2021 9:08 PM METER AND SERVICE LINE INSPECTOR documented as of this encounter Care Teams Automobile Locator Relationship Specialty Start Date End Date Esperanza Gatica MD PCP - General Family Practice 10/13/11 12/29/21 [place] [address] [place] [address] PCP - Assigned PCP 12/05/17 08/23/18 Alfreda Ray PA-C [address] [place] [address], [place] [address] PCP - General Family Medicine 12/30/21 [place] [address] [place] [address] Assigned PCP 12/05/17 09/30/19 [place] [address] [place] [address] Assigned PCP 10/01/19 03/02/20 [place] [address] [place] [address] Assigned PCP 03/03/20 05/25/20 [place] [address] [place] [address] Assigned PCP 05/26/20 09/28/20 [place] [address] [place] [address] Assigned PCP 09/29/20 07/31/22 [place] [address] [place] [address] Assigned Musculoskeletal Provider 10/20/20 04/17/22 Alfreda Ray PA-C [facility] [place] [address] Referring Physician Family Medicine 12/31/21 Katrin Orellana PA-C [address] [place] [address] [id number] Physician Food Services Coordinator Dermatology 12/31/21 Shanna Vang PA-C [address] [place] [address] [phone] Assigned Cancer Care Provider 01/10/22 Fransisco Eddy MD [address] [place] [address] [phone] Assigned Rheumatology Provider 05/09/22 [place] [address] [place] [address] Assigned Pain Medication Provider 06/29/22 09/04/22 [place] [address] [place] [address] Assigned PCP 08/15/22 08/28/22 Katrin Orellana PA-C [address] [place] [address] [phone] Assigned Surgical Provider 08/15/22 02/10/24 Cristina Hsieh [facility] [address] [facility] [place] [phone] Pharmacist Pharmacist 09/07/22 Alfreda Ray PA-C [address] [place] [address] 099522 Assigned Pain Medication Provider 09/05/22 09/10/23 Aflreda Ray PA-C [address] [place] [address] [phone] Assigned PCP 08/29/22 Cristina Hsieh [facility] [address] [place] [address] Assigned MTM Pharmacist 09/26/22 Dakota Tatum MD [address] [place] [address] [phone] Cardiovascular Disease 03/25/23 Dakota Tatum MD [address] [place] [address] 019145 Assigned Heart and Vascular Provider 05/01/23 [place] [address] [address] Assigned Musculoskeletal Provider 04/12/24 documented as of this encounter
--- OUTSIDE RECORDS SUMMARY | 2024-06-22 23:15 | XMS_ITS | Encounter Summary ---
Author Organization [place] Address [address] [place] [address] Care Team Providers Care Front End Wheel Loader Operator Name Role Phone Esperanza Gatica MD Primary Care Provider + Esperanza Gatica MD Unavailable +[phone] Esperanza Gatica MD Unavailable +[phone] Esperanza Gatica MD Unavailable +[phone] Esperanza Gatica MD Unavailable +[phone] Esperanza Gatica MD Unavailable +[phone] Esperanza Gatica MD Unavailable +[phone] Jesús Orourke MD Unavailable Alfreda RayC Primary Care Provider + Alfreda Ray PA-C Unavailable + [phone] Katrin Orellana PA-C Unavailable +[phone] Shanna VangC Unavailable +[phone] Fransisco Eddy MD Unavailable [phone] Esperanza Gatica MD Unavailable +[phone] Esperanza Gatica MD Unavailable +[phone] Katrin Orellana PA-C Unavailable [phone] Cristina Hsieh [facility] Unavailable Cory Alfreda Liu PA-C Unavailable +[phone] Ho Raymustapha Liu PA-C Unavailable +[phone] Cristina Hsieh [facility] Unavailable [phone] Dakota Tatum MD Unavailable [phone] Dakota Tatum MD Unavailable [phone] Srinivas Marie DO Unavailable [phone] Reason for Visit * Reason Onset Date Comments Medication Question 05/09/2014 Ambien and H ydrocodone Encounter Details Date Type Department Care Team (Late st Contact Info) Description 05/09/2014 MyC Medical Advice [address], [address] [place] [address] [place] [address] [place] [address] Medication Question (Ambien and Hydrocodone) Social History Tobacco Use Types Packs/Day Years Used Date Smoking Tobacco: Former Cigarettes Q uit: 06/21/1973 Smokeless Tobacco: Former Alcohol Use Standard Drinks/Week Comments Yes 0 (1 standard drink = 0.6 oz pur e alcohol) rarely Comments No Sex and Gender Information Value Date Recorded Sex Assigned at Female 08/17/2018 7:56 AM CYBER POLICY AND STRATEGY PLANNER Legal Sex Female 4:24 AM CYBER POLICY AND STRATEGY PLANNER Gender Identity Female 08/17/2018 7:56 AM CYBER POLICY AND STRATEGY PLANNER Sexual Orientation Straight 08/17/2018 7: 56 AM CYBER POLICY AND STRATEGY PLANNER documented as of this encounter Miscellaneous Notes * Telephone Encounter - Leigha Rinaldi RN - 06/11/2014 11:53 AM CST RX faxed. Leigha Rinaldi RN R POLICY AND STRATEGY PLANNER * Telephone Encounter - Royer Brumfield MD - 06/11/2014 11:26 AM CYBER POLICY AND STRATEGY PLANNER OK, I switched her to 5mg tabs so insurance shouldn't mess with the quantity any more. She should take one full tab when needed. Note that med is NOT intended for nightly use; provided quantity is for one month. Royer Brumfield MD R POLICY AND STRATEGY PLANNER * Telephone Encounter - Leigha Rinaldi RN - 06/11/2014 10:48 AM CST Spoke with patient. She only got quantity #15 dispensed on 05/14/2014 so rx only lasted 1 month. (insurance probably dispensed it that way) Patient will run out of med. Please consider refill. Leigha Rinaldi RN R POLICY AND STRATEGY PLANNER * Telephone Encounter - Royer Brumfield MD - 06/11/2014 9:01 AM CYBER POLICY AND STRATEGY PLANNER Ambien filled 05/07/14 was marked as a two month refill. Royer Brumfield MD R POLICY AND STRATEGY PLANNER * Telephone Encounter - Leigha Rinaldi RN - 06/11/2014 8:55 AM CST Pending Prescriptions: Disp Refills HYDROcodone-acetaminophen (NORCO) 5-325 M*90 tab*0 Sig: Take 1 tablet by mouth every 6 hours as needed for pain zolpidem (AMBIEN) 10 MG tablet 30 tab*0 Sig: Take 0.5 tablets (5 mg) by mouth nightly as needed for sleep (should last for 2 months) Take 2-5 nights per week Last OV: 03/29/2014 Reason: IBS Last filled: 05/14/2014 #30 AMBIEN 03/12/2014 #90 HYDROCODONE Leigha Rinaldi RN R POLICY AND STRATEGY PLANNER documented in this encounter Plan of Treatment Upcoming Encounters Date Type Department Care Team (Late st Contact Info) Description 09/07/2024 10:00 AM CDT Office Visit [address] [phone] Fransisco Eddy MD [address] [place] [address] 03/29/2025 3:40 PM CDT Office Visit [address] [phone] Alfreda Ray PA-C [address] [place] [address] documented as of this encounter Visit Diagnoses Diagnosis Osteoarthritis- Primary Osteoarthrosis, unspecified whether generalized or localized, unspecified site INSOMNIA NEC Insomnia, unspecified documented in this encounter Additional Health Concerns Infection Onset Date Last Indicated Resolved Time Rule Out COVID-19 05/08/2021 05/08/2021 05/09/2021 9:08 PM CYBER POLICY AND STRATEGY PLANNER documented as of this encounter Care Teams Front End Wheel Loader Operator Relationship Specialty Start Date End Date Esperanza Gatica MD PCP - General Family Practice 10/13/11 12/29/21 [place] [address] [place] [address] PCP - Assigned PCP 12/05/17 08/23/18 Alfreda Ray PA-C [address] [place] [address] PCP - General Family Medicine 12/30/21 [place] [address] [place] [address] Assigned PCP 12/05/17 09/30/19 [place] [address] [place] [address] Assigned PCP 10/01/19 03/02/20 [place] [address] [place] [address] Assigned PCP 03/03/20 05/25/20 [place] [address] [place] [address] Assigned PCP 05/26/20 09/28/20 [place] [address] [place] [address] Assigned PCP 09/29/20 07/31/22 [place] [address] [place] [address] [place] [address] Assigned Musculoskeletal Provider 10/20/20 04/17/22 Alfreda Ray PA-C [address] [place] [address] 247302 Referring Physician Family Medicine 12/31/21 Katrin Orellana PA-C [address] [place] [address] 98 [place], [place] 757415 Physician Desizing Machine Operator Head End Dermatology 12/31/21 Shanna Vang PA-C [address] [place] [address] Assigned Cancer Care Provider 01/10/22 Fransisco Eddy MD [address] [place] [address] Assigned Rheumatology Provider 05/09/22 [place] [address] [address] [facility] [address] Assigned Pain Medication Provider 06/29/22 09/04/22 [place] [address] [address] [place] [address] Assigned PCP 08/15/22 08/28/22 Katrin Orellana PA-C [address] [place] [address] Assigned Surgical Provider 08/15/22 02/10/24 Cristina Hsieh [facility] [address] [facility] [place] [address] Pharmacist Pharmacist 09/07/22 Alfreda Ray PA-C [address] [place] [address] 365842 Assigned Pain Medication Provider 09/05/22 09/10/23 Alfreda Ray PA-C [address] [place] [address] Assigned PCP 08/29/22 Cristina Hsieh [facility] [address] [address] Assigned MTM Pharmacist 09/26/22 Dakota Tatum MD [address] [place] [address] Cardiovascular Disease 03/25/23 Dakota Tatum MD [address] [place] [address] Assigned Heart and Vascular Provider 05/01/23 [place] [address] [address], [address] [address] Assigned Musculoskeletal Provider 04/12/24 documented as of this encounter
--- OUTSIDE RECORDS SUMMARY | 2024-06-22 23:15 | XMS_ITS | Encounter Summary ---
Author Organization [place] Address [address] [place] [address] Care Team Providers Care Dynamo Repairer Name Role Phone Esperanza Gatica MD Primary Care Provider + Esperanza Gatica MD Unavailable +[phone] Esperanza Gatica MD Unavailable +[phone] Esperanza Gatica MD Unavailable +[phone] Esperanza Gatica MD Unavailable +[phone] Esperanza Gatica MD Unavailable +[phone] Esperanza Gatica MD Unavailable +[phone] Jesús Orourke MD Unavailable Alfreda RayC Primary Care Provider + Alfreda Ray PA-C Unavailable + [phone] Katrin Orellana PA-C Unavailable +[phone] Shanna VangC Unavailable +[phone] Fransisco Eddy MD Unavailable +[phone] Esperanza Gatica MD Unavailable +[phone] Esperanza Gatica MD Unavailable +[phone] Katrin Orellana PA-C Unavailable Cristina Hsieh [facility] Unavailable RayAlfreda PA-C Unavailable +[phone] Cory Alfreda Liu PA-C Unavailable +[phone] Cristina Hsieh [facility] Unavailable Dakota Tatum MD Unavailable +[phone] Dakota Tatum MD Unavailable [phone] Srinivas Marie DO Unavailable [phone] Reason for Visit * Reason Onset Date Comments Refill Request 03/03/2014 Tramadol, Trazod one Encounter Details Date Type Department Care Team (Late st Contact Info) Description 03/03/2014 MyC Refill [address], [address] [place] [address] [place] [address] [place] [address] Refill Request (Tramadol, Trazodone) Social History Tobacco Use Types Packs/Day Years Used Date Smoking Tobacco: Former Cigarettes Q uit: 06/21/1973 Smokeless Tobacco: Former Alcohol Use Standard Drinks/Week Comments Yes 0 (1 standard drink = 0.6 oz pur e alcohol) rarely Comments No Sex and Gender Information Value Date Recorded Sex Assigned at Female 08/17/2018 7:56 AM FINISHER WALLBOARD AND PLASTERBOARD Legal Sex Female 4:24 AM FINISHER WALLBOARD AND PLASTERBOARD Gender Identity Female 08/17/2018 7:56 AM FINISHER WALLBOARD AND PLASTERBOARD Sexual Orientation Straight 08/17/2018 7: 56 AM FINISHER WALLBOARD AND PLASTERBOARD documented as of this encounter Miscellaneous Notes * Telephone Encounter - Leigha Rinaldi, RN - 03/05/2014 7:54 AM CDT Pending Prescriptions: Disp Refills traMADol (ULTRAM) 50 MG tablet 30 tab*0 Sig: Take 1 tablet (50 mg) by mouth every 6 hours as needed for pain traZODone (DESYREL) 50 MG tablet 90 tab*0 Sig: Take 1 tablet (50 mg) by mouth nightly as needed for sleep Last OV: 10/24/2013 Reason: Back pain Last filled: 02/07/2014 #30 Leigha Rinaldi RN * Telephone Encounter - Leigha Rinaldi RN - 03/05/2014 7:53 AM [facility] Original authorizing provider: MD Alexandria Triplett would like a refill of the following medications: traMADol (ULTRAM) 50 MG tablet [Royer Brumfield MD] Preferred pharmacy: [id number] Comment: Medication renewals requested in this message routed to other providers: traZODone (DESYREL) 50 MG tablet [Esperanza Gatica MD] documented in this encounter Plan of Treatment Upcoming Encounters Date Type Department Care Team (Late st Contact Info) Description 09/07/2024 10:00 AM CDT Office Visit [address] [phone] Fransisco Eddy MD [address] [place] [address] 380605 03/29/2025 3:40 PM CDT Office Visit [address] [phone] Alfreda Ray PA-C [address] [place] [address] 895902 documented as of this encounter Visit Diagnoses Diagnosis HTN (hypertension), benign Essential hypertension, benign Insomnia, unspecified documented in this encounter Additional Health Concerns Infection Onset Date Last Indicated Resolved Time Rule Out COVID-19 05/08/2021 05/08/2021 05/09/2021 9:08 PM FINISHER WALLBOARD AND PLASTERBOARD documented as of this encounter Care Teams Dynamo Repairer Relationship Specialty Start Date End Date Esperanza Gatica MD PCP - General Family Practice 10/13/11 12/29/21 [place] [address] [place] [address] PCP - Assigned PCP 12/05/17 08/23/18 Alfreda Ray PA-C [address] [place] [address], [place] [address] PCP - General Family Medicine 12/30/21 [place] [address] [place] [address] Assigned PCP 12/05/17 09/30/19 [place] [address] [place] [address] Assigned PCP 10/01/19 03/02/20 [place] [address] [place] [address] Assigned PCP 03/03/20 05/25/20 [place] [address] [place] [address] Assigned PCP 05/26/20 09/28/20 [place] [address] [place] [address] Assigned PCP 09/29/20 07/31/22 [place] [address] [place] [address] Assigned Musculoskeletal Provider 10/20/20 04/17/22 Alfreda Ray PA-C [address] [place] [address] 376372 Referring Physician Family Medicine 12/31/21 Katrin Orellana PA-C [address] [place] [address] 226905 Physician Edger Liner Dermatology 12/31/21 Shanna Vang PA-C [address] 754234 Assigned Cancer Care Provider 01/10/22 Fransisco Eddy MD [address] [place] [address] [phone] Assigned Rheumatology Provider 05/09/22 [place] [address] [place] [address] Assigned Pain Medication Provider 06/29/22 09/04/22 [place] [address] [address] GARCIA [address] Assigned PCP 08/15/22 08/28/22 Katrin Orellana PA-C [address] [place] [address] 134825 Assigned Surgical Provider 08/15/22 02/10/24 Cristina Hsieh, [facility] [address] [facility] LISBETH HERNANDEZ [address] Pharmacist Pharmacist 09/07/22 Alfreda Ray PA-C [address] [place] [address] 598372 Assigned Pain Medication Provider 09/05/22 09/10/23 Alfreda Ray PA-C [address] [place] [address] 682322 Assigned PCP 08/29/22 Cristina Hsieh, [facility] [address] [address] Assigned MTM Pharmacist 09/26/22 Dakota Tatum MD [address] [place] [address] 10126 Cardiovascular Disease 03/25/23 Dakota Tatum MD [address] [place] [address] 25211 Assigned Heart and Vascular Provider 05/01/23 [place] [address] [address], [address] [address] Assigned Musculoskeletal Provider 04/12/24 documented as of this encounter
--- OUTSIDE RECORDS SUMMARY | 2024-06-22 23:15 | XMS_ITS | Encounter Summary ---
Author Organization [place] Address [address] [place] [address] Care Team Providers Care Jelly Filter Tender Name Role Phone Esperanza Gatica MD Primary Care Provider + Esperanza Gatica MD Unavailable +[phone] Esperanza Gatica MD Unavailable +[phone] Esperanza Gatica MD Unavailable +[phone] Esperanza Gatica MD Unavailable +[phone] Esperanza Gatica MD Unavailable +[phone] Esperanza Gatica MD Unavailable +[phone] Jesús Orourke MD Unavailable Alfreda RayC Primary Care Provider + Alfreda Ray PA-C Unavailable + [phone] Katrin Orellana PA-C Unavailable +[phone] Shanna VangC Unavailable +[phone] Fransisco Eddy MD Unavailable [phone] Esperanza Gatica MD Unavailable +[phone] Esperanza Gatica MD Unavailable +[phone] Katrin Orellana PA-C Unavailable Cristina Hsieh [facility] Unavailable Cory Alfreda Liu PA-C Unavailable +[phone] Ho Raymustapha Liu PA-C Unavailable +[phone] Cristina Hsieh [facility] Unavailable [phone] Dakota Tatum MD Unavailable Dakota Tatum MD Unavailable [phone] Srinivas Marie DO Unavailable [phone] Reason for Visit * Reason Onset Date Comments Refill Request 11/08/2013 Tramadol 50mg Encounter Details Date Type Department Care Team (Late st Contact Info) Description 11/08/2013 MyC Refill [address], [facility] [address] [place] [address] [place] [address] [place] [address] Refill Request (Tramadol 50mg) Social History Tobacco Use Types Packs/Day Years Used Date Smoking Tobacco: Former Cigarettes Q uit: 06/21/1973 Smokeless Tobacco: Former Alcohol Use Standard Drinks/Week Comments Yes 0 (1 standard drink = 0.6 oz pur e alcohol) rarely Comments No Sex and Gender Information Value Date Recorded Sex Assigned at Female 08/17/2018 7:56 AM CASE FILLER Legal Sex Female 4:24 AM CASE FILLER Gender Identity Female 08/17/2018 7:56 AM CASE FILLER Sexual Orientation Straight 08/17/2018 7: 56 AM CASE FILLER documented as of this encounter Miscellaneous Notes * Telephone Encounter - Leigha Rinaldi RN - 11/08/2013 7:49 AM CDT Med: Tramadol 50mg Last OV: 10/24/2013 Reason: SI joint pain Last filled: 10/10/2013 #30 Leigha Rinaldi RN * Telephone Encounter - Leigha Rinaldi RN - 11/08/2013 7:49 AM CDTMessage from MyChart: Original authorizing provider: MD Alexandria Brannon would like a refill of the following medications: traMADol (ULTRAM) 50 MG tablet [Esperanza Gatica MD] Preferred pharmacy: [facility] #[id number] - [address] Comment: documented in this encounter Plan of Treatment Upcoming Encounters Date Type Department Care Team (Late st Contact Info) Description 09/07/2024 10:00 AM CDT Office Visit [facility] [address] [place] [phone] Fransisco Eddy MD [address] [place] [address] 848055 03/29/2025 3:40 PM CDT Office Visit [address] [phone] Alfreda Ray PA-C [address] [place] [address] [phone] documented as of this encounter Visit Diagnoses Diagnosis HTN (hypertension), benign Essential hypertension, benign documented in this encounter Additional Health Concerns Infection Onset Date Last Indicated Resolved Time Rule Out COVID-19 05/08/2021 05/08/2021 05/09/2021 9:08 PM CASE FILLER documented as of this encounter Care Teams Jelly Filter Tender Relationship Specialty Start Date End Date Esperanza Gatica MD PCP - General Family Practice 10/13/11 12/29/21 [place] [address] [place] [address] PCP - Assigned PCP 12/05/17 08/23/18 Alfreda Ray PA-C [address] [place] [address] PCP - General Family Medicine 12/30/21 [place] [address] [place] [address] Assigned PCP 12/05/17 09/30/19 [place] [address] [place] [address] Assigned PCP 10/01/19 03/02/20 [place] [address] [place] [address] Assigned PCP 03/03/20 05/25/20 [place] [address] [place] [address] Assigned PCP 05/26/20 09/28/20 [place] [address] [place] [address] Assigned PCP 09/29/20 07/31/22 [place] [address] [place] GALAN [address] Assigned Musculoskeletal Provider 10/20/20 04/17/22 Alfreda Ray PA-C [facility] [place] [facility] [place] [address] Referring Physician Family Medicine 12/31/21 Katrin Orellana PA-C [address] [place] [address] 334915 Physician Manager Of Application Development Dermatology 12/31/21 Shanna Vang PA-C [address] [place] [address] [phone] Assigned Cancer Care Provider 01/10/22 Fransisco Eddy MD [address] [place] [address] [phone] Assigned Rheumatology Provider 05/09/22 [place] [address] [address] [facility] [address] Assigned Pain Medication Provider 06/29/22 09/04/22 [place] [address] [facility] [place] [address] Assigned PCP 08/15/22 08/28/22 Katrin Orellana PA-C [address] [place] [address] 176135 Assigned Surgical Provider 08/15/22 02/10/24 Cristina Hsieh [facility] [address] [facility] LISBETH HERNANDEZ [address] Pharmacist Pharmacist 09/07/22 Alfreda Ray PA-C [address] [place] [address] 724542 Assigned Pain Medication Provider 09/05/22 09/10/23 Alfreda Ray PA-C [address] [place] [address] 712112 Assigned PCP 08/29/22 Cristina Hsieh [facility] [address] [place] [address] Assigned MTM Pharmacist 09/26/22 Dakota Tatum MD [address] [place] [address] [phone] Cardiovascular Disease 03/25/23 Dakota Tatum MD [address] [place] [address] 645185 Assigned Heart and Vascular Provider 05/01/23 [place] [address] [address], [address] [address] Assigned Musculoskeletal Provider 04/12/24 documented as of this encounter
--- OUTSIDE RECORDS SUMMARY | 2024-06-22 23:15 | XMS_ITS | Encounter Summary ---
Author Organization [place] Address [address] [place] [address] Care Team Providers Care Product Manager Name Role Phone Esperanza Gatica MD Primary Care Provider + Esperanza Gatica MD Unavailable +[phone] Esperanza Gatica MD Unavailable +[phone] Esperanza Gatica MD Unavailable +[phone] Esperanza Gatica MD Unavailable +[phone] Esperanza Gatica MD Unavailable +[phone] Esperanza Gatica MD Unavailable +[phone] Jesús Orourke MD Unavailable Alfreda RayC Primary Care Provider + Alfreda Ray PA-C Unavailable + [phone] Katrin Orellana PA-C Unavailable [phone] Shanna VangC Unavailable +[phone] Fransisco Eddy MD Unavailable [phone] Esperanza Gatica MD Unavailable +[phone] Esperanza Gatiac MD Unavailable +[phone] Katrin Orellana PA-C Unavailable Cristina Hsieh [facility] Unavailable Ho Raymustapha Liu PA-C Unavailable [phone] Alfreda Ray Alexa KING Unavailable +[phone] Cristina Hsieh [facility] Unavailable [phone] Dakota Tatum MD Unavailable [phone] Dakota Tatum MD Unavailable [phone] Srinivas Marie DO Unavailable [phone] Reason for Visit * Reason Onset Date Comments Refill Request 01/07/2014 tramadol Encounter Details Date Type Department Care Team (Late st Contact Info) Description 01/07/2014 MyC Refill [address], [address] [place] [address] [place] [address] [place] [address] Refill Request (tramadol) Social History Tobacco Use Types Packs/Day Years Used Date Smoking Tobacco: Former Cigarettes Q uit: 06/21/1973 Smokeless Tobacco: Former Alcohol Use Standard Drinks/Week Comments Yes 0 (1 standard drink = 0.6 oz pur e alcohol) rarely Comments No Sex and Gender Information Value Date Recorded Sex Assigned at Female 08/17/2018 7:56 AM FLIGHT ATTENDANT INFLIGHT SERVICES Legal Sex Female 4:24 AM FLIGHT ATTENDANT INFLIGHT SERVICES Gender Identity Female 08/17/2018 7:56 AM FLIGHT ATTENDANT INFLIGHT SERVICES Sexual Orientation Straight 08/17/2018 7: 56 AM FLIGHT ATTENDANT INFLIGHT SERVICES documented as of this encounter Miscellaneous Notes * Telephone Encounter - Diane Macedo RN - 01/08/2014 8:09 AM CDT Does not meet standard requirement for RN refill protocol. Medication: tramadol Last OV: 10/24/13 Provider: MD ZAIDA Reason for visit: SI joint dysfunction, etc... Last refill: 12/11/13 #30 Please refill if appropriate. Thank you! Diane Macedo RN [facility] * Telephone Encounter - Diane Macedo RN - 01/08/2014 8:08 AM CDT Message from [employer]: Original authorizing provider: MD Sadia Brannonyovana Fregoso Cococecy would like a refill of the following medications: traMADol (ULTRAM) 50 MG tablet [Esperanza Gatica MD] Preferred pharmacy: [id number] Comment: Medication renewals requested in this message routed to other providers: zolpidem (AMBIEN) 10 MG tablet [Royer Brumfield MD] documented in this encounter Plan of Treatment Upcoming Encounters Date Type Department Care Team (Late st Contact Info) Description 09/07/2024 10:00 AM CDT Office Visit [address] [phone] Fransisco Eddy MD [address] [place] [address] 563655 03/29/2025 3:40 PM CDT Office Visit [address] [phone] Alfreda Ray PA-C [address] [place] [address] 861372 documented as of this encounter Visit Diagnoses Diagnosis HTN (hypertension), benign Essential hypertension, benign documented in this encounter Additional Health Concerns Infection Onset Date Last Indicated Resolved Time Rule Out COVID-19 05/08/2021 05/08/2021 05/09/2021 9:08 PM FLIGHT ATTENDANT INFLIGHT SERVICES documented as of this encounter Care Teams Product Manager Relationship Specialty Start Date End Date Esperanza Gatica MD PCP - General Family Practice 10/13/11 12/29/21 [place] [address] [place], [place] [address] PCP - Assigned PCP 12/05/17 08/23/18 Alfreda Ray PA-C [address] [place] [address] PCP - General Family Medicine 12/30/21 [place] [address] [address], [place] [address] Assigned PCP 12/05/17 09/30/19 [place] [address] [place], L[place] [address] Assigned PCP 10/01/19 03/02/20 [place] [address] L[place] GARCIA [address] Assigned PCP 03/03/20 05/25/20 [place] [address] [address] [place]ARCIA [address] Assigned PCP 05/26/20 09/28/20 [place] [address] [place] GARCIA [address] Assigned PCP 09/29/20 07/31/22 [place] [address] [place] GALAN [address] Assigned Musculoskeletal Provider 10/20/20 04/17/22 Alfreda Ray PA-C [address] [place] [address] Referring Physician Family Medicine 12/31/21 Katrin Orellana PA-C [address] [place] [address] Physician Broadcast Supervisor Dermatology 12/31/21 Shanna Vang PA-C [address] [place] [address] 622864 Assigned Cancer Care Provider 01/10/22 Fransisco Eddy MD [address] [place] [address] 818885 Assigned Rheumatology Provider 05/09/22 [place] [address] [facility] [place] 7[address]7768 Assigned Pain Medication Provider 06/29/22 09/04/22 [place] [address] [place] [address] Assigned PCP 08/15/22 08/28/22 Katrin Orellana PA-C [address] [place] [address] 205695 Assigned Surgical Provider 08/15/22 02/10/24 Cristina Hsieh [facility] [address] [facility] LISBETH HERNANDEZ [address] Pharmacist Pharmacist 09/07/22 Alfreda Ray PA-C [address] [place] [address] Assigned Pain Medication Provider 09/05/22 09/10/23 Alfreda Ray PA-C [address] [place] [address] Assigned PCP 08/29/22 Cristina Hsieh, [facility] [address] [place] [address] Assigned MTM Pharmacist 09/26/22 Dakota Tatum MD [address] [place] [address]16 Cardiovascular Disease 03/25/23 Dakota Tatum MD [address] [place] [address] Assigned Heart and Vascular Provider 05/01/23 [place] [address] [address], [address] [address] Assigned Musculoskeletal Provider 04/12/24 documented as of this encounter
--- OUTSIDE RECORDS SUMMARY | 2024-06-22 23:15 | XMS_ITS | Encounter Summary ---
Author Organization [place] Address [address] [place] [address]217 Care Team Providers Care Cruise Staff Member Name Role Phone Esperanza Gatica MD Primary Care Provider + Esperanza Gatica MD Unavailable +[phone] Esperanza Gatica MD Unavailable +[phone] Esperanza Gatica MD Unavailable +229 Esperanza Gatica MD Unavailable +[phone] Esperanza Gatica MD Unavailable +457 Esperanza Gatica MD Unavailable +[phone] Jesús Orourke MD Unavailable Alfreda RayC Primary Care Provider + Alfreda Ray PA-C Unavailable + [phone] Katrin Orellana PA-C Unavailable +[phone] Shanna VangC Unavailable +[phone] Fransisco Eddy MD Unavailable [phone] Esperanza Gatica MD Unavailable +[phone] Esperanza Gatica MD Unavailable +[phone] Katrin Orellana PA-C Unavailable Cristina Hsieh [facility] Unavailable Cory Alfreda Liu PA-C Unavailable +[phone] Ho Raymustapha Liu PA-C Unavailable +[phone] Cristina Hsieh [facility] Unavailable [phone] Dakota Tatum MD Unavailable [phone] Dakota Tatum MD Unavailable [phone] Srinivas Marie DO Unavailable [phone] Reason for Visit * Reason Onset Date Comments Refill Request 05/06/2014 Tramadol 50mg Encounter Details Date Type Department Care Team (Late st Contact Info) Description 05/06/2014 MyC Refill [address], [facility] [address] [place] [address] [place] [address] [place] [address] Refill Request (Tramadol 50mg) Social History Tobacco Use Types Packs/Day Years Used Date Smoking Tobacco: Former Cigarettes Q uit: 06/21/1973 Smokeless Tobacco: Former Alcohol Use Standard Drinks/Week Comments Yes 0 (1 standard drink = 0.6 oz pur e alcohol) rarely Comments No Sex and Gender Information Value Date Recorded Sex Assigned at Female 08/17/2018 7:56 AM JOURNALISM INTERN Legal Sex Female 4:24 AM JOURNALISM INTERN Gender Identity Female 08/17/2018 7:56 AM JOURNALISM INTERN Sexual Orientation Straight 08/17/2018 7: 56 AM JOURNALISM INTERN documented as of this encounter Miscellaneous Notes * Telephone Encounter - Leigha Rinaldi RN - 05/07/2014 2:40 PM CST Pending Prescriptions: Disp Refills traMADol (ULTRAM) 50 MG tablet 30 tab*0 Sig: Take 1 tablet (50 mg) by mouth every 6 hours as needed for pain Last OV: 03/29/2014 Reason: IBS Last filled: 04/09/2014 #30 Leigha Rinaldi RN NALISM INTERN * Telephone Encounter - Leigha Rinaldi RN - 05/07/2014 2:39 PM [facility] Original authorizing provider: MD Alexandria Brannon would like a refill of the following medications: traMADol (ULTRAM) 50 MG tablet [Esperanza Gatica MD] Preferred pharmacy: [id number] Comment: NALISM INTERN documented in this encounter Plan of Treatment Upcoming Encounters Date Type Department Care Team (Late st Contact Info) Description 09/07/2024 10:00 AM CDT Office Visit [address] [place] [phone] Fransisco Eddy MD [address] [place] [address] 719385 03/29/2025 3:40 PM CDT Office Visit [address] [phone] Alfreda Ray PA-C [address] [place] [address] [phone] documented as of this encounter Visit Diagnoses Diagnosis HTN (hypertension), benign Essential hypertension, benign documented in this encounter Additional Health Concerns Infection Onset Date Last Indicated Resolved Time Rule Out COVID-19 05/08/2021 05/08/2021 05/09/2021 9:08 PM JOURNALISM INTERN documented as of this encounter Care Teams Cruise Staff Member Relationship Specialty Start Date End Date Esperanza Gatica MD PCP - General Family Practice 10/13/11 12/29/21 [place] [address] [place] [address] PCP - Assigned PCP 12/05/17 08/23/18 Alfreda Ray PA-C [address] [place] [address]54 PCP - General Family Medicine 12/30/21 [place] [address] [place] [address] Assigned PCP 12/05/17 09/30/19 [place] [address] [place] [address] Assigned PCP 10/01/19 03/02/20 [place] [address] [place] [address] Assigned PCP 03/03/20 05/25/20 [place] [address] [place] [address] Assigned PCP 05/26/20 09/28/20 [place] [address] [place] [address] Assigned PCP 09/29/20 07/31/22 Jesú[place] [address] [place] [address] Assigned Musculoskeletal Provider 10/20/20 04/17/22 Alfreda Ray PA-C [address] [place] [address] Referring Physician Family Medicine 12/31/21 Katrin Orellana PA-C [address] [place] [address] Physician Flight Reservations Manager Dermatology 12/31/21 Shanna Vang PA-C [address] [address] Assigned Cancer Care Provider 01/10/22 Fransisco Eddy MD [address] [place] [address]27 Assigned Rheumatology Provider 05/09/22 [place] [address] [place] [address] Assigned Pain Medication Provider 06/29/22 09/04/22 [place] [address] [place] [address] Assigned PCP 08/15/22 08/28/22 Katrin Orellana PA-C [address] [place] [address]93 Assigned Surgical Provider 08/15/22 02/10/24 [facility] 3[address] [facility] LISBETH HERNANDEZ [address] Pharmacist Pharmacist 09/07/22 Alfreda Ray PA-C [address] [place] [address] Assigned Pain Medication Provider 09/05/22 09/10/23 Alfreda Ray PA-C [address] [place] [address] Assigned PCP 08/29/22 Cristina Hsieh, [facility] [address] [place] [address] Assigned MTM Pharmacist 09/26/22 Dakota Tatum MD [address] [place] [address] Cardiovascular Disease 03/25/23 Dakota Tatum MD [address] [place] [address] Assigned Heart and Vascular Provider 05/01/23 [place] [address] [facility], [address] [address] Assigned Musculoskeletal Provider 04/12/24 documented as of this encounter
--- OUTSIDE RECORDS SUMMARY | 2024-06-22 23:15 | XMS_ITS | Encounter Summary ---
Author Organization [place] Address [address] [place] [address] Care Team Providers Care Manager Harbor Name Role Phone Esperanza Gatica MD Primary Care Provider + Esperanza Gatica MD Unavailable +[phone] Esperanza Gatica MD Unavailable +[phone] Esperanza Gatica MD Unavailable +[phone] Esperanza Gatica MD Unavailable +[phone] Esperanza Gatica MD Unavailable +[phone] Esperanza Gatica MD Unavailable +[phone] Jesús Orourke MD Unavailable Alfreda RayC Primary Care Provider + Alfreda Ray PA-C Unavailable + [phone] Katrin Orellana PA-C Unavailable +[phone] Shanna VangC Unavailable +[phone] Fransisco Eddy MD Unavailable +[phone] Esperanza Gatica MD Unavailable +[phone] Esperanza Gatica MD Unavailable +[phone] Katrin Orellana PA-C Unavailable Cristina Hsieh [facility] Unavailable Ho Raymustapha Liu PA-C Unavailable +[phone] Alfreda Ray Alexa KING Unavailable +[phone] Cristina Hsieh [facility] Unavailable +[phone] Dakota Tatum MD Unavailable [phone] Dakota Tatum MD Unavailable [phone] Srinivas Marie DO Unavailable [phone] Reason for Visit * Reason Onset Date Comments Refill Request 08/28/2013 tramadol Encounter Details Date Type Department Care Team (Late st Contact Info) Description 08/28/2013 MyC Refill [address], [address] [place] [address] [place] [address] [place] [address] Refill Request (tramadol) Social History Tobacco Use Types Packs/Day Years Used Date Smoking Tobacco: Former Cigarettes Q uit: 06/21/1973 Smokeless Tobacco: Former Alcohol Use Standard Drinks/Week Comments Yes 0 (1 standard drink = 0.6 oz pur e alcohol) rarely Comments No Sex and Gender Information Value Date Recorded Sex Assigned at Female 08/17/2018 7:56 AM SUPERVISOR PRINTING SHOP Legal Sex Female 4:24 AM SUPERVISOR PRINTING SHOP Gender Identity Female 08/17/2018 7:56 AM SUPERVISOR PRINTING SHOP Sexual Orientation Straight 08/17/2018 7: 56 AM SUPERVISOR PRINTING SHOP documented as of this encounter Miscellaneous Notes * Telephone Encounter - Diane Macedo RN - 08/28/2013 11:57 AM CDT Does not meet standard requirement for RN refill protocol. Medication: tramadol Last OV: 07/14/13 Provider: MD ZAIDA Reason for visit: HTN, CKD, etc... Last refill: 07/31/13 #30 Please refill if appropriate. Thank you! Diane Macedo RN [facility] Work Force * Telephone Encounter - Diane Macedo RN - 08/28/2013 11:57 AM CDT Message from [place]: Original authorizing provider: MD Alexandria Brannon Zenobia Cococecy would like a refill of the following medications: traMADol (ULTRAM) 50 MG tablet [Esperanza Gatica MD] Preferred pharmacy: [facility] [id number] Comment: Sent from my iPad documented in this encounter Plan of Treatment Upcoming Encounters Date Type Department Care Team (Late st Contact Info) Description 09/07/2024 10:00 AM CDT Office Visit [address] [phone] Fransisco Eddy MD [address] [place] [address] 03/29/2025 3:40 PM CDT Office Visit [address] [phone] Alfreda Ray PA-C [address] [place] [address] [phone] documented as of this encounter Visit Diagnoses Diagnosis Knee pain Pain in joint, lower leg documented in this encounter Additional Health Concerns Infection Onset Date Last Indicated Resolved Time Rule Out COVID-19 05/08/2021 05/08/2021 05/09/2021 9:08 PM SUPERVISOR PRINTING SHOP documented as of this encounter Care Teams Manager Harbor Relationship Specialty Start Date End Date Esperanza Gatica MD PCP - General Family Practice 10/13/11 12/29/21 [place] [address] [place] [address] PCP - Assigned PCP 12/05/17 08/23/18 Alfreda Ray PA-C [address] [place] [address], [place] [address] PCP - General Family Medicine 12/30/21 [place] [address] [place] [address] Assigned PCP 12/05/17 09/30/19 [place] [address] [place] [address] Assigned PCP 10/01/19 03/02/20 [place] [address] [place] [address] Assigned PCP 03/03/20 05/25/20 [place] [address] [place] [address] Assigned PCP 05/26/20 09/28/20 [place] [address] [place] [address] Assigned PCP 09/29/20 07/31/22 Jesú[place] [address] [place] [address] Assigned Musculoskeletal Provider 10/20/20 04/17/22 Alfreda Ray PA-C [address] [place] [address] Referring Physician Family Medicine 12/31/21 Katrin Orellana PA-C [address] [place] [address] 870095 Physician Doughnut Maker Dermatology 12/31/21 Shanna Vang PA-C [address] 494434 Assigned Cancer Care Provider 01/10/22 Fransisco Eddy MD [address] [place] [address] 636575 Assigned Rheumatology Provider 05/09/22 [place] [address] [place] [address] Assigned Pain Medication Provider 06/29/22 09/04/22 [place] [address] [place] [address] Assigned PCP 08/15/22 08/28/22 Katrin Orellana PA-C [address] [place] [address] 007865 Assigned Surgical Provider 08/15/22 02/10/24 Cristina Hsieh, [facility] [address] [facility] [place] [address] Pharmacist Pharmacist 09/07/22 Alfreda Ray PA-C [address] [place] [address] Assigned Pain Medication Provider 09/05/22 09/10/23 Alfreda Ray PA-C [address] [place] [address] 89[address] Assigned PCP 08/29/22 Cristina Hsieh, [facility] [address] [place] [address] 1955[address] Assigned MTM Pharmacist 09/26/22 Dakota Tatum MD [address] [place] [address] 57419 Cardiovascular Disease 03/25/23 Dakota Tatum MD [address] [place] [address]15 Assigned Heart and Vascular Provider 05/01/23 [place] [address] [place] , [address] [address] Assigned Musculoskeletal Provider 04/12/24 documented as of this encounter
--- OUTSIDE RECORDS SUMMARY | 2024-06-22 23:15 | XMS_ITS | Encounter Summary ---
Author Organization [facility] Address [address] [place] [address] Care Team Providers Care Foam Fabricator Name Role Phone Esperanza Gatica MD Primary Care Provider + Esperanza Gatica MD Unavailable +[phone] Esperanza Gatica MD Unavailable +[phone] Esperanza Gatica MD Unavailable +[phone] Esperanza Gatica MD Unavailable +[phone] Esperanza Gatica MD Unavailable +[phone] Esperanza Gatica MD Unavailable +[phone] Jesús Orourke MD Unavailable Alfreda RayC Primary Care Provider + Alfreda Ray PA-C Unavailable + [phone] Katrin Orellana PA-C Unavailable [phone] Shanna VangC Unavailable +[phone] Fransisco Eddy MD Unavailable [phone] Esperanza Gatica MD Unavailable +[phone] Esperanza Gatica MD Unavailable +[phone] Katrin Orellana PA-C Unavailable Cristina Hsieh [facility] Unavailable Cory Alfreda Liu PA-C Unavailable Alfreda Ray Alexa KING Unavailable [phone] Cristina Hsieh [facility] Unavailable Dakota Tatum MD Unavailable Dakota Tatum MD Unavailable [phone] Srinivas Marie DO Unavailable [phone] Reason for Visit * Reason Onset Date Comments Refill Request 04/07/2014 Encounter Details Date Type Department Care Team (Late st Contact Info) Description 04/07/2014 MyC Refill [address], [address] [place] [address] [place] [address] [place] [address] Refill Request Social History Tobacco Use Types Packs/Day Years Used Date Smoking Tobacco: Former Cigarettes Q uit: 06/21/1973 Smokeless Tobacco: Former Alcohol Use Standard Drinks/Week Comments Yes 0 (1 standard drink = 0.6 oz pur e alcohol) rarely Comments No Sex and Gender Information Value Date Recorded Sex Assigned at Female 08/17/2018 7:56 AM CATTLE DRIVER Legal Sex Female 4:24 AM CATTLE DRIVER Gender Identity Female 08/17/2018 7:56 AM CATTLE DRIVER Sexual Orientation Straight 08/17/2018 7: 56 AM CATTLE DRIVER documented as of this encounter Miscellaneous Notes * Telephone Encounter - Fartun Mayes RN - 04/09/2014 9:20 AM CDT MyChart refill request for tramadol. Last OV 03/29/14. Last filled 03/05/14, qty 30. Unable to refillper SO protocol, to for auth. * Telephone Encounter - Fartun Mayes RN - 04/09/2014 9:17 AM [facility] Original authorizing provider: MD Alexandria rBannon would like a refill of the following medications: traMADol (ULTRAM) 50 MG tablet [Esperanza Gatica MD] Preferred pharmacy: [facility] #[id number] - [address] Comment: documented in this encounter Plan of Treatment Upcoming Encounters Date Type Department Care Team (Late st Contact Info) Description 09/07/2024 10:00 AM CDT Office Visit [address] [place] [phone] Fransisco Eddy MD [address] [place] [address] [phone] 03/29/2025 3:40 PM CDT Office Visit [address] [phone] Alfreda Ray PA-C [address] [place] [address] [phone] documented as of this encounter Visit Diagnoses Diagnosis HTN (hypertension), benign Essential hypertension, benign documented in this encounter Additional Health Concerns Infection Onset Date Last Indicated Resolved Time Rule Out COVID-19 05/08/2021 05/08/2021 05/09/2021 9:08 PM CATTLE DRIVER documented as of this encounter Care Teams Foam Fabricator Relationship Specialty Start Date End Date Esperanza Gatica MD PCP - General Family Practice 10/13/11 12/29/21 [place] [address] [place] [address] PCP - Assigned PCP 12/05/17 08/23/18 Alfreda Ray PA-C [address] [place] [address] PCP - General Family Medicine 12/30/21 [place] [address] [place] [address] Assigned PCP 12/05/17 09/30/19 [place] [address] [place] [address] Assigned PCP 10/01/19 03/02/20 [place] [address] [place] [address] Assigned PCP 03/03/20 05/25/20 [place] [address] [place] [address] Assigned PCP 05/26/20 09/28/20 [place] [address] [place] [address] Assigned PCP 09/29/20 07/31/22 [place] [address] [place] [address] Assigned Musculoskeletal Provider 10/20/20 04/17/22 Alfreda Ray PA-C [address] [place] [address] Referring Physician Family Medicine 12/31/21 Katrin Orellana PA-C [address] [place] [address] Physician Kineseologist Dermatology 12/31/21 Shanna Vang PA-C [address] [place] [address]199 Assigned Cancer Care Provider 01/10/22 Fransisco Eddy MD [address] [place] [address] 138745 Assigned Rheumatology Provider 05/09/22 [place] [address] [place] [address] Assigned Pain Medication Provider 06/29/22 09/04/22 [place] [address] [place] [address] Assigned PCP 08/15/22 08/28/22 Katrin Orellana PA-C [address] [place] [address]48 Assigned Surgical Provider 08/15/22 02/10/24 Cristina Hsieh, [facility] [address] [place] [address] [place] [address] Pharmacist Pharmacist 09/07/22 Alfreda Ray PA-C [address] [place] [address]249 Assigned Pain Medication Provider 09/05/22 09/10/23 Alfreda Ray PA-C [address] [place] [address] 119232 Assigned PCP 08/29/22 Cristina Hsieh, [facility] [address] [place] [address]68 Assigned MTM Pharmacist 09/26/22 Dakota Tatum MD [address] [place] [address] 421975 Cardiovascular Disease 03/25/23 Dakota Tatum MD [address] [place] [address] 242095 Assigned Heart and Vascular Provider 05/01/23 [place] [address] [address] Assigned Musculoskeletal Provider 04/12/24 documented as of this encounter
--- OUTSIDE RECORDS SUMMARY | 2024-06-22 23:15 | XMS_ITS | Encounter Summary ---
Author Organization [place] Address [address] [place] [address] Care Team Providers Care Rock Crusher Operator Name Role Phone Esperanza Gatica MD Primary Care Provider + Esperanza Gatica MD Unavailable +[phone] Esperanza Gatica MD Unavailable +[phone] Esperanza Gatica MD Unavailable +[phone] Esperanza Gatica MD Unavailable +[phone] Esperanza Gatica MD Unavailable +[phone] Esperanza Gatica MD Unavailable +[phone] Jesús Orourke MD Unavailable Alfreda RayC Primary Care Provider + Alfreda Ray PA-C Unavailable + [phone] Katrin Orellana PA-C Unavailable [phone] Shanna VangC Unavailable +[phone] Fransisco Eddy MD Unavailable +[phone] Esperanza Gatica MD Unavailable +[phone] Esperanza Gatica MD Unavailable +[phone] Katrin Orellana PA-C Unavailable Cristina Hsieh [facility] Unavailable Cory Alfreda Liu PA-C Unavailable +[phone] Ho Raymustapha Liu PA-C Unavailable [phone] Cristina Hsieh [facility] Unavailable [phone] Dakota Tatum MD Unavailable [phone] Dakota Tatum MD Unavailable [phone] Srinivas Marie DO Unavailable [phone] Reason for Visit * Reason Onset Date Comments Refill Request 06/03/2014 Tramadol 50mg Encounter Details Date Type Department Care Team (Late st Contact Info) Description 06/03/2014 MyC Refill [address], [facility] [[email or web address] [address] [place] [address] [place] [address] [place] [address] Refill Request (Tramadol 50mg) Social History Tobacco Use Types Packs/Day Years Used Date Smoking Tobacco: Former Cigarettes Q uit: 06/21/1973 Smokeless Tobacco: Former Alcohol Use Standard Drinks/Week Comments Yes 0 (1 standard drink = 0.6 oz pur e alcohol) rarely Comments No Sex and Gender Information Value Date Recorded Sex Assigned at Female 08/17/2018 7:56 AM FLIGHT TEST SHOP MECHANIC Legal Sex Female 4:24 AM FLIGHT TEST SHOP MECHANIC Gender Identity Female 08/17/2018 7:56 AM FLIGHT TEST SHOP MECHANIC Sexual Orientation Straight 08/17/2018 7: 56 AM FLIGHT TEST SHOP MECHANIC documented as of this encounter Miscellaneous Notes * Telephone Encounter - Leigha Rinaldi RN - 06/04/2014 1:43 PM CST Pending Prescriptions: Disp Refills traMADol (ULTRAM) 50 MG tablet 30 tab*0 Sig: Take 1 tablet (50 mg) by mouth every 6 hours as needed for pain Last OV: 03/29/2014 Reason: IBS Last filled: 05/07/2014 #30 Leigha Rinaldi RN HT TEST SHOP MECHANIC * Telephone Encounter - Leigha Rinaldi RN - 06/04/2014 1:43 PM [facility] Original authorizing provider: MD Alexandria Brannon would like a refill of the following medications: traMADol (ULTRAM) 50 MG tablet [Esperanza Gatica MD] Preferred pharmacy: [id number] Comment: HT TEST SHOP MECHANIC documented in this encounter Plan of Treatment Upcoming Encounters Date Type Department Care Team (Late st Contact Info) Description 09/07/2024 10:00 AM CDT Office Visit [address] [place] [phone] Fransisco Eddy MD [address] [place] [address] 675445 03/29/2025 3:40 PM CDT Office Visit [address] [phone] Alfreda Ray PA-C [address] [place] [address] [phone] documented as of this encounter Visit Diagnoses Diagnosis HTN (hypertension), benign Essential hypertension, benign documented in this encounter Additional Health Concerns Infection Onset Date Last Indicated Resolved Time Rule Out COVID-19 05/08/2021 05/08/2021 05/09/2021 9:08 PM FLIGHT TEST SHOP MECHANIC documented as of this encounter Care Teams Rock Crusher Operator Relationship Specialty Start Date End Date Esperanza Gatica MD PCP - General Family Practice 10/13/11 12/29/21 [place] [address] [place] [address] PCP - Assigned PCP 12/05/17 08/23/18 Alfreda Ray PA-C [address] [place] [address]01 PCP - General Family Medicine 12/30/21 [place] [address] [place] [address] Assigned PCP 12/05/17 09/30/19 [place] [address] [place] [address] Assigned PCP 10/01/19 03/02/20 [place] [address] [place] [address] Assigned PCP 03/03/20 05/25/20 [place] [address] [place] [address] Assigned PCP 05/26/20 09/28/20 [place] [address] [place] [address] Assigned PCP 09/29/20 07/31/22 [place] [address] [place] [address] Assigned Musculoskeletal Provider 10/20/20 04/17/22 Alfreda Ray PA-C [address] [place] [address] Referring Physician Family Medicine 12/31/21 Katrin Orellana PA-C [address] [place] [address] Physician Ornament Stapler Dermatology 12/31/21 Shanna Vang PA-C [address] [address] Assigned Cancer Care Provider 01/10/22 Fransisco Eddy MD [address] [place] [address] Assigned Rheumatology Provider 05/09/22 [place] [address] [place] [address] Assigned Pain Medication Provider 06/29/22 09/04/22 [place] [address] [place] [address] Assigned PCP 08/15/22 08/28/22 Katrin Orellana PA-C [address] [place] [address] 10141 Assigned Surgical Provider 08/15/22 02/10/24 Cristina Hsieh [facility] [address] [facility] [place] [address] Pharmacist Pharmacist 09/07/22 Alfreda Ray PA-C [address] [place] [address] 9[address] Assigned Pain Medication Provider 09/05/22 09/10/23 Alfreda Ray PA-C [address] [place] [address] Assigned PCP 08/29/22 Cristina Hsieh, [facility] [address] [place] [address] Assigned MTM Pharmacist 09/26/22 Dakota Tatum MD [address] [place] [address]14 Cardiovascular Disease 03/25/23 Dakota Tatum MD [address] [place] [address] 6[address]60 Assigned Heart and Vascular Provider 05/01/23 [place] [address] [facility], [address] [address] Assigned Musculoskeletal Provider 04/12/24 documented as of this encounter
--- OUTSIDE RECORDS SUMMARY | 2024-06-22 23:15 | XMS_ITS | Encounter Summary ---
Author Organization [facility] Address [address] [place] [address] Care Team Providers Care Loan And Credit Manager Name Role Phone Esperanza Gatica MD Primary Care Provider + Esperanza Gatica MD Unavailable +[phone] Esperanza Gatica MD Unavailable +[phone] Esperanza Gatica MD Unavailable +[phone] Esperanza Gatica MD Unavailable +[phone] Esperanza Gatica MD Unavailable +346 Esperanza Gatica MD Unavailable +[phone] Jesús Orourke MD Unavailable Alfreda RayC Primary Care Provider + Alfreda Ray PA-C Unavailable + [phone] Katrin Orellana PA-C Unavailable [phone] Shanna VangC Unavailable +[phone] Fransisco Eddy MD Unavailable [phone] Esperanza Gatica MD Unavailable +[phone] Esperanza Gatica MD Unavailable +[phone] Katrin Orellana PA-C Unavailable Cristina Hsieh [facility] Unavailable Cory Alfreda Liu PA-C Unavailable +[phone] Ho Raymustapha Liu PA-C Unavailable +[phone] Crist[facility] Hsieh [facility] Unavailable Dakota Tatum MD Unavailable Dakota Tatum MD Unavailable [phone] Srinivas Marie DO Unavailable [phone] Reason for Visit * Reason Onset Date Comments Refill Request 10/13/2013 Atenolol 25mg Encounter Details Date Type Department Care Team (Late st Contact Info) Description 10/13/2013 MyC Refill [address], [address] [place] [address] [place] [address] [place] [address] Refill Request (Atenolol 25mg) Social History Tobacco Use Types Packs/Day Years Used Date Smoking Tobacco: Former Cigarettes Q uit: 06/21/1973 Smokeless Tobacco: Former Alcohol Use Standard Drinks/Week Comments Yes 0 (1 standard drink = 0.6 oz pur e alcohol) rarely Comments No Sex and Gender Information Value Date Recorded Sex Assigned at Female 08/17/2018 7:56 AM ELECTRICIAN SHIP Legal Sex Female 4:24 AM ELECTRICIAN SHIP Gender Identity Female 08/17/2018 7:56 AM ELECTRICIAN SHIP Sexual Orientation Straight 08/17/2018 7: 56 AM ELECTRICIAN SHIP documented as of this encounter Miscellaneous Notes * Telephone Encounter - Leigha Rinaldi RN - 10/16/2013 11:17 AM CDT Last Office Visit R/T Diagnosis: 07/14/2013 BP Readings from Last 3 Encounters: 07/14/13 122/60 11/08/12 112/60 06/23/12 104/60 Medication approved per standing orders. Leigha Rinaldi RN * Telephone Encounter - Leigha Rinaldi RN - 10/16/2013 11:16 AM [facility] Original authorizing provider: MD Alexandria Brannon would like a refill of the following medications: atenolol (TENORMIN) 25 MG tablet [Esperanza Gatica MD] Preferred pharmacy: [id number] Comment: I asked for a refill last week & received it, but it was for only [address] Gaticaprescribes 90 tablets. I think it's because in August we were on a trip & I forgot my medicationat home. She prescribed 5 tablets for me to get by until we got home. Would you please send anotherprescription for the 85 pills? Thanks for your help. documented in this encounter Plan of Treatment Upcoming Encounters Date Type Department Care Team (Late st Contact Info) Description 09/07/2024 10:00 AM CDT Office Visit [facility] [address] [phone] Fransisco Eddy MD [address] [place] [address] 03/29/2025 3:40 PM CDT Office Visit [address] [place] [phone] Alfreda Ray PA-C [address] [place] [address] [phone] documented as of this encounter Visit Diagnoses Diagnosis HTN (hypertension), benign Essential hypertension, benign documented in this encounter Additional Health Concerns Infection Onset Date Last Indicated Resolved Time Rule Out COVID-19 05/08/2021 05/08/2021 05/09/2021 9:08 PM ELECTRICIAN SHIP documented as of this encounter Care Teams Loan And Credit Manager Relationship Specialty Start Date End Date Esperanza Gatica MD PCP - General Family Practice 10/13/11 12/29/21 [place] [address] [place] [address] PCP - Assigned PCP 12/05/17 08/23/18 Alfreda Ray PA-C [address] [place] [address] PCP - General Family Medicine 12/30/21 [place] [address] [place] [address] Assigned PCP 12/05/17 09/30/19 [place] [address] [place] [address] Assigned PCP 10/01/19 03/02/20 [place] [address] [place] [address] Assigned PCP 03/03/20 05/25/20 [place] [address] [place] [address] Assigned PCP 05/26/20 09/28/20 [place] [address] [place] [address] Assigned PCP 09/29/20 07/31/22 [place] [address] [place] [place] [address] W[place] [address] [place] [address] 25069 Assigned Musculoskeletal Provider 10/20/20 04/17/22 Alfreda Ray PA-C [address] [place] [address] 844742 Referring Physician Family Medicine 12/31/21 Katrin Orellana PA-C [address] [place] [address] 117045 Physician Jacquard Plate Maker Dermatology 12/31/21 Shanna Vang PA-C [address] 319804 Assigned Cancer Care Provider 01/10/22 Fransisco Eddy MD [address] [place] [address] 849925 Assigned Rheumatology Provider 05/09/22 [place] [address] [place] [address] Assigned Pain Medication Provider 06/29/22 09/04/22 [place] [address] [place] [address] Assigned PCP 08/15/22 08/28/22 Katrin Orellana PA-C [address] [place] [address] 136985 Assigned Surgical Provider 08/15/22 02/10/24 Cristina Hsieh, [facility] [address] [facility] [place] [address] Pharmacist Pharmacist 09/07/22 Alfreda Ray PA-C [address] [place] [address] 829142 Assigned Pain Medication Provider 09/05/22 09/10/23 Alfreda Ray PA-C [address] [place] [address] 238102 Assigned PCP 08/29/22 Cristina Hsieh [facility] [address] [address] Assigned MTM Pharmacist 09/26/22 Dakota Tatum MD [address] [place] [address] 15179 Cardiovascular Disease 03/25/23 Dakota Tatum MD [address] [place] [address] 18872 Assigned Heart and Vascular Provider 05/01/23 [place] [address] [place] , [facility] [address] [place] [address] Assigned Musculoskeletal Provider 04/12/24 documented as of this encounter
--- OUTSIDE RECORDS SUMMARY | 2024-06-22 23:15 | XMS_ITS | Encounter Summary ---
Author Organization [facility] Address [address] [place] [address] Care Team Providers Care Educational Advisor Name Role Phone Esperanza Gatica MD Primary Care Provider + Esperanza Gatica MD Unavailable +[phone] Esperanza Gatica MD Unavailable +[phone] Esperanza Gatica MD Unavailable +[phone] Esperanza Gatica MD Unavailable +396 Esperanza Gatica MD Unavailable +229 Esperanza Gatica MD Unavailable +[phone] Jesús Orourke MD Unavailable Alfreda RayC Primary Care Provider + Alfreda Ray PA-C Unavailable + [phone] Katrin Orellana PA-C Unavailable +[phone] Shanna VangC Unavailable +[phone] Fransisco Eddy MD Unavailable +[phone] Esperanza Gatica MD Unavailable +[phone] Esperanza Gatica MD Unavailable +[phone] Kartin Orellana PA-C Unavailable Cristina Hsieh [facility] Unavailable Cory Alfreda Liu PA-C Unavailable +[phone] Ho Raymustapha Liu PA-C Unavailable +[phone] Cristina Hsieh [facility] Unavailable +[phone] Dakota Tatum MD Unavailable [phone] Dakota Tatum MD Unavailable +[phone] Srinivas Marie DO Unavailable [phone] Reason for Visit * Reason Onset Date Comments Back Pain 10/20/2013 ortho referral Encounter Details Date Type Department Care Team (Late st Contact Info) Description 10/20/2013 MyC Medical Advice [address], [address] [place] [address] [place] [address] [place] [address] Back Pain (ortho referral) Social History Tobacco Use Types Packs/Day Years Used Date Smoking Tobacco: Former Cigarettes Q uit: 06/21/1973 Smokeless Tobacco: Former Alcohol Use Standard Drinks/Week Comments Yes 0 (1 standard drink = 0.6 oz pur e alcohol) rarely Comments No Sex and Gender Information Value Date Recorded Sex Assigned at Female 08/17/2018 7:56 AM DIATHERMY EQUIPMENT REPAIRER Legal Sex Female 4:24 AM DIATHERMY EQUIPMENT REPAIRER Gender Identity Female 08/17/2018 7:56 AM DIATHERMY EQUIPMENT REPAIRER Sexual Orientation Straight 08/17/2018 7: 56 AM DIATHERMY EQUIPMENT REPAIRER documented as of this encounter Miscellaneous Notes * Telephone Encounter - Esperanza Gatica MD - 10/20/2013 1:00 PM CDT I would like to see her fist, so we can do an exam, and discuss options, to determine if this is muscle , nerve pain or if more imaging needs to be done. Can she make an appointment ? documented in this encounter Plan of Treatment Upcoming Encounters Date Type Department Care Team (Late st Contact Info) Description 09/07/2024 10:00 AM CDT Office Visit [facility] [address] [place]ER [phone] Fransisco Eddy MD [address] [place] [address] 03/29/2025 3:40 PM CDT Office Visit [address] [phone] Alfreda Ray PA-C [address] [place] [address] [phone] documented as of this encounter Visit Diagnoses Not on filedocumented in this encounter Additional Health Concerns Infection Onset Date Last Indicated Resolved Time Rule Out COVID-19 05/08/2021 05/08/2021 05/09/2021 9:08 PM DIATHERMY EQUIPMENT REPAIRER documented as of this encounter Care Teams Educational Advisor Relationship Specialty Start Date End Date Esperanza Gatica MD PCP - General Family Practice 10/13/11 12/29/21 [place] [address] [address] GARCIA [address] PCP - Assigned PCP 12/05/17 08/23/18 Alfreda Ray PA-C [address] [place] [address] PCP - General Family Medicine 12/30/21 [place] [address] [address] [address] Assigned PCP 12/05/17 09/30/19 [place] [address] [address] [place] GAFF[place] [address] Assigned PCP 10/01/19 03/02/20 [place] [address] [place] [address] Assigned PCP 03/03/20 05/25/20 [place] [address] [address] GARCIA [address] Assigned PCP 05/26/20 09/28/20 [place] [address] [address] GARCIA [address] Assigned PCP 09/29/20 07/31/22 [place] [address] [address] Assigned Musculoskeletal Provider 10/20/20 04/17/22 Alfreda Ray PA-C [address] [place] [address] 486062 Referring Physician Family Medicine 12/31/21 Katrin Orellana PA-C [address] [place] [address] 680555 Physician Slurry Plant Operator Dermatology 12/31/21 Shanna Vang PA-C [address] [place] [address] 027294 Assigned Cancer Care Provider 01/10/22 Fransisco Eddy MD [address] [place] [address] Assigned Rheumatology Provider 05/09/22 [place] [address] [place] [address] Assigned Pain Medication Provider 06/29/22 09/04/22 [place] [address] [address] [place] [address] Assigned PCP 08/15/22 08/28/22 Katrin Orellana PA-C [address] [place] [address] Assigned Surgical Provider 08/15/22 02/10/24 [place] [address] [place] [address] LISBETH HERNANDEZ [address] Pharmacist Pharmacist 09/07/22 Alfreda Ray PA-C [address] [place] [address]803 Assigned Pain Medication Provider 09/05/22 09/10/23 Alfreda Ray PA-C [address] [place] [address] 31356 Assigned PCP 08/29/22 Cristina Hsieh [facility] [address] [address] Assigned MTM Pharmacist 09/26/22 Dakota Tatum MD [address] [place] [place] [address] Cardiovascular Disease 03/25/23 Dakota Tatum MD [address] [place] [place] [address] Assigned Heart and Vascular Provider 05/01/23 [place] [address] [address], [address] [address] Assigned Musculoskeletal Provider 04/12/24 documented as of this encounter
--- OUTSIDE RECORDS SUMMARY | 2024-06-22 23:15 | XMS_ITS | Encounter Summary ---
Author Organization [facility] Address [address] [place] [address] Care Team Providers Care Director Of Procurement Name Role Phone Esperanza Gatica MD Primary Care Provider + Esperanza Gatica MD Unavailable +[phone] Esperanza Gatica MD Unavailable +[phone] Esperanza Gatica MD Unavailable +[phone] Esperanza Gatica MD Unavailable +[phone] Esperanza Gatica MD Unavailable +[phone] Espearnza Gatica MD Unavailable +[phone] Jesús Orourke MD Unavailable Alfreda RayC Primary Care Provider + Alfreda Ray PA-C Unavailable + [phone] Katrin Orellana PA-C Unavailable [phone] Shanna VangC Unavailable +[phone] Fransisco Eddy MD Unavailable +[phone] Esperanza Gatica MD Unavailable +[phone] Esperanza Gatica MD Unavailable +[phone] Katrin Orellana PA-C Unavailable Cristina Hsieh [facility] Unavailable Alfreda Ray Alexa KING Unavailable +[phone] Alfreda Ray Alexa KING Unavailable +[phone] Cristina Hsieh [facility] Unavailable [phone] Dakota Tatum MD Unavailable [phone] Dakota Tatum MD Unavailable [phone] Srinivas Marie DO Unavailable [phone] Reason for Visit * Reason Onset Date Comments Refill Request 07/31/2013 tramadol Encounter Details Date Type Department Care Team (Late st Contact Info) Description 07/31/2013 MyC Refill [address], [facility] [address] [place] [address] [place] [address] [place] [address] Refill Request (tramadol) Social History Tobacco Use Types Packs/Day Years Used Date Smoking Tobacco: Former Cigarettes Q uit: 06/21/1973 Smokeless Tobacco: Former Alcohol Use Standard Drinks/Week Comments Yes 0 (1 standard drink = 0.6 oz pur e alcohol) rarely Comments No Sex and Gender Information Value Date Recorded Sex Assigned at Female 08/17/2018 7:56 AM MORNING NANNY Legal Sex Female 4:24 AM MORNING NANNY Gender Identity Female 08/17/2018 7:56 AM MORNING NANNY Sexual Orientation Straight 08/17/2018 7: 56 AM MORNING NANNY documented as of this encounter Miscellaneous Notes * Telephone Encounter - Diane Macedo - 07/31/2013 2:16 PM CST Does not meet standard requirement for RN refill protocol. Medication: tramadol Last OV: 07/14/12 Provider: MD ZAIDA Reason for visit: HTN, CKD, etc... Last refill: 06/22/13 #30 Please refill if appropriate. Thank you! Diane Macedo RN [facility] [employer] ING NANNY * Telephone Encounter - HellenDiane cook - 07/31/2013 2:16 PM CSTMessage from MyChart: Original authorizing provider: MD Alexandria Brannon Zenobia Leeann would like a refill of the following medications: traMADol (ULTRAM) 50 MG tablet [Esperanza Gatica MD] Preferred pharmacy: [id number] Comment: ING NANNY documented in this encounter Plan of Treatment Upcoming Encounters Date Type Department Care Team (Late st Contact Info) Description 09/07/2024 10:00 AM CDT Office Visit [address] [phone] Fransisco Eddy MD [address] [place] [address] 387275 03/29/2025 3:40 PM CDT Office Visit [address] [phone] Alfreda Ray PA-C [address] [place] [address] 693592 documented as of this encounter Visit Diagnoses Diagnosis Knee pain Pain in joint, lower leg documented in this encounter Additional Health Concerns Infection Onset Date Last Indicated Resolved Time Rule Out COVID-19 05/08/2021 05/08/2021 05/09/2021 9:08 PM MORNING NANNY documented as of this encounter Care Teams Director Of Procurement Relationship Specialty Start Date End Date Esperanza Gatica MD PCP - General Family Practice 10/13/11 12/29/21 [place] [address] [address] [place]ARCIA [address] PCP - Assigned PCP 12/05/17 08/23/18 Alfreda Ray PA-C [address] [place] [address] PCP - General Family Medicine 12/30/21 [place] [address] [place] [address] Assigned PCP 12/05/17 09/30/19 [place] [address] [place] [address] Assigned PCP 10/01/19 03/02/20 [place] [address] [place] [address] Assigned PCP 03/03/20 05/25/20 [place] [address] [place] [address] Assigned PCP 05/26/20 09/28/20 [place] [address] [place] [address] Assigned PCP 09/29/20 07/31/22 Jesú[place] [address] [place], [place] [address] Assigned Musculoskeletal Provider 10/20/20 04/17/22 Alfreda Ray PA-C [address] [place] [address] Referring Physician Family Medicine 12/31/21 Katrin Orellana PA-C [address] [place] [address] Physician Company Miner Blasting Dermatology 12/31/21 Shanna Vang PA-C [address] [place] [address] 698204 Assigned Cancer Care Provider 01/10/22 Fransisco Eddy MD [address] [place] [address] 371545 Assigned Rheumatology Provider 05/09/22 [place] [address] [place] [address] Assigned Pain Medication Provider 06/29/22 09/04/22 [place] [address] [address] [facility] [place] [address] Assigned PCP 08/15/22 08/28/22 Katrin Orellana PA-C [address] [place] [address] 010595 Assigned Surgical Provider 08/15/22 02/10/24 Cristina Hsieh, [facility] [address] [facility] [place]DEZ [address] Pharmacist Pharmacist 09/07/22 Alfreda Ray PA-C [address] [place] [address] Assigned Pain Medication Provider 09/05/22 09/10/23 Alfreda Ray PA-C [address] [place] [address] Assigned PCP 08/29/22 Cristina Hsieh, [facility] [address] [address] Assigned MTM Pharmacist 09/26/22 Dakota Tatum MD [address] [place] [address] Cardiovascular Disease 03/25/23 Dakota Tatum MD [address] [place] [address]16 Assigned Heart and Vascular Provider 05/01/23 [place] [address] [address], [address] [address] Assigned Musculoskeletal Provider 04/12/24 documented as of this encounter
--- OUTSIDE RECORDS SUMMARY | 2024-06-22 23:15 | XMS_ITS | Encounter Summary ---
Author Organization [facility] Address [address] [place] [address] Care Team Providers Care Track Welder Name Role Phone Esperanza Gatica MD Primary Care Provider + Esperanza Gatica MD Unavailable +[phone] Esperanza Gatica MD Unavailable +[phone] Esperanza Gatica MD Unavailable +[phone] Esperanza Gatica MD Unavailable +[phone] Esperanza Gatica MD Unavailable +[phone] Esperanza Gatica MD Unavailable +[phone] Jesús Orourke MD Unavailable Alfreda RayC Primary Care Provider + Alfreda Ray PA-C Unavailable + [phone] Katrin Orellana PA-C Unavailable [phone] Shanna VangC Unavailable +[phone] Fransisco Eddy MD Unavailable [phone] Esperanza Gatica MD Unavailable +[phone] Esperanza Gatica MD Unavailable +[phone] Katrin Orellana PA-C Unavailable Cristina Hsieh [facility] Unavailable Cory Alfreda Liu PA-C Unavailable [phone] Alfreda Ray Alexa KING Unavailable [phone] Cristina Hsieh [facility] Unavailable Dakota Tatum MD Unavailable Dakota Ttaum MD Unavailable Srinivas Marie DO Unavailable [phone] Reason for Visit * Reason Onset Date Comments Refill Request 03/03/2014 Encounter Details Date Type Department Care Team (Late st Contact Info) Description 03/03/2014 MyC Refill [address], [address] [place] [address] [place] [address] [place] [address] Refill Request Social History Tobacco Use Types Packs/Day Years Used Date Smoking Tobacco: Former Cigarettes Q uit: 06/21/1973 Smokeless Tobacco: Former Alcohol Use Standard Drinks/Week Comments Yes 0 (1 standard drink = 0.6 oz pur e alcohol) rarely Comments No Sex and Gender Information Value Date Recorded Sex Assigned at Female 08/17/2018 7:56 AM PANTOGRAPH TRANSFERRER Legal Sex Female 4:24 AM PANTOGRAPH TRANSFERRER Gender Identity Female 08/17/2018 7:56 AM PANTOGRAPH TRANSFERRER Sexual Orientation Straight 08/17/2018 7: 56 AM PANTOGRAPH TRANSFERRER documented as of this encounter Plan of Treatment Upcoming Encounters Date Type Department Care Team (Late st Contact Info) Description 09/07/2024 10:00 AM CDT Office Visit [facility] [address] [phone] Fransisco Eddy MD [address] [place] [address] 03/29/2025 3:40 PM CDT Office Visit [facility] [address] [place] [phone] Alfreda Ray PA-C [address] [place] [address] 582562 documented as of this encounter Visit Diagnoses Not on filedocumented in this encounter Additional Health Concerns Infection Onset Date Last Indicated Resolved Time Rule Out COVID-19 05/08/2021 05/08/2021 05/09/2021 9:08 PM PANTOGRAPH TRANSFERRER documented as of this encounter Care Teams Track Welder Relationship Specialty Start Date End Date Esperanza Gatica MD PCP - General Family Practice 10/13/11 12/29/21 [place] [address] [address] [address] PCP - Assigned PCP 12/05/17 08/23/18 Alfreda Ray PA-C [address] [place] [address] 496622 PCP - General Family Medicine 12/30/21 [place] [address] [address] G[place] [address] Assigned PCP 12/05/17 09/30/19 [place] [address] [address] GARCIA [address] Assigned PCP 10/01/19 03/02/20 [place] [address] [address] GARCIA [address] Assigned PCP 03/03/20 05/25/20 [place] [address] [address] GARCIA [address] Assigned PCP 05/26/20 09/28/20 [place] [address] [address] GARCIA [address] Assigned PCP 09/29/20 07/31/22 [place] [address] [facility] [address] [address] Assigned Musculoskeletal Provider 10/20/20 04/17/22 Alfreda Ray PA-C [address] [place] [address] Referring Physician Family Medicine 12/31/21 Katrin Orellana PA-C [address] [place] [address] Physician Sample Selector Dermatology 12/31/21 Shanna Vang PA-C [facility] [address] [address] Assigned Cancer Care Provider 01/10/22 Fransisco Eddy MD [address] [place] [address] 375185 Assigned Rheumatology Provider 05/09/22 [place] [address] [address] GARCIA [address] Assigned Pain Medication Provider 06/29/22 09/04/22 [place] [address] [place] [address] Assigned PCP 08/15/22 08/28/22 Katrin Orellana PA-C [address] [place] [address]603 Assigned Surgical Provider 08/15/22 02/10/24 Cristina Hsieh [facility] [address] [place] [address] LISBETH HERNANDEZ [address] Pharmacist Pharmacist 09/07/22 Alfreda Ray PA-C [address] [place] [address]92 Assigned Pain Medication Provider 09/05/22 09/10/23 Alfreda Ray PA-C [address] [place] [address]17 Assigned PCP 08/29/22 Cristina Hsieh [facility] [address] [place] [address] Assigned MTM Pharmacist 09/26/22 Dakota Tatum MD [address] [place] [address] 683895 Cardiovascular Disease 03/25/23 Dakota Tatum MD [address] [place] [address] 760145 Assigned Heart and Vascular Provider 05/01/23 [place] [address] [address], [address] [address] Assigned Musculoskeletal Provider 04/12/24 documented as of this encounter
--- OUTSIDE RECORDS SUMMARY | 2024-06-22 23:15 | XMS_ITS | Encounter Summary ---
Author Organization [facility] Address [address] [place] [address] Care Team Providers Care Associate Professor Of Geology Name Role Phone Esperanza Gatica MD Primary Care Provider + Esperanza Gatica MD Unavailable +[phone] Esperanza Gatica MD Unavailable +[phone] Esperanza Gatica MD Unavailable +[phone] Esperanza Gatica MD Unavailable +[phone] Esperanza Gatica MD Unavailable +[phone] Esperanza Gatica MD Unavailable +[phone] Jesús Orourke MD Unavailable Alfreda RayC Primary Care Provider + Alfreda Ray PA-C Unavailable + [phone] Katrin Orellana PA-C Unavailable [phone] Shanna VangC Unavailable +[phone] Fransisco Eddy MD Unavailable +[phone] Esperanza Gatica MD Unavailable +[phone] Esperanza Gatica MD Unavailable +[phone] Katrin Orellana PA-C Unavailable [phone] Cristina Hsieh [facility] Unavailable RayAlfreda PA-C Unavailable [phone] Cory Alfreda Liu PA-C Unavailable +[phone] Cristina Hsieh [facility] Unavailable Dakota Tatum MD Unavailable Dakota Tatum MD Unavailable [phone] Srinivas Marie DO Unavailable [phone] Reason for Visit * Reason Onset Date Comments Refill Request 12/19/2013 Simms, Lisinopri l-HCTZ Encounter Details Date Type Department Care Team (Late st Contact Info) Description 12/19/2013 MyC Refill M [address], [address] [place] [address] [place] [address] [place] [address] Refill Request (Simms, Lisinopril-HCTZ) Social History Tobacco Use Types Packs/Day Years Used Date Smoking Tobacco: Former Cigarettes Q uit: 06/21/1973 Smokeless Tobacco: Former Alcohol Use Standard Drinks/Week Comments Yes 0 (1 standard drink = 0.6 oz pur e alcohol) rarely Comments No Sex and Gender Information Value Date Recorded Sex Assigned at Female 08/17/2018 7:56 AM POWDERER Legal Sex Female 4:24 AM POWDERER Gender Identity Female 08/17/2018 7:56 AM POWDERER Sexual Orientation Straight 08/17/2018 7: 56 AM POWDERER documented as of this encounter Miscellaneous Notes * Telephone Encounter - Leigha Rinaldi RN - 12/19/2013 10:22 AM CDT Pending Prescriptions: Disp Refills HYDROcodone-acetaminophen (NORCO) 5-325 M*90 tab*0 Sig: Take 1 tablet by mouth every 6 hours as needed for pain lisinopril-hydrochlorothiazide (PRINZIDE,*90 tab*0 Sig: Take 1 tablet by mouth daily Last Office Visit R/T Diagnosis: 10/24/2013 BP Readings from Last 1 Encounters: 10/24/13 116/58 Potassium Date Value Range Status 07/14/2013 4.6 3.4 - 5.3 mmol/L Final ] Creatinine Date Value Range Status 07/14/2013 0.96 0.52 - 1.04 mg/dL Final Leigha Rinaldi RN * Telephone Encounter - Leigha Rinaldi RN - 12/19/2013 10:21 AM [facility] Original authorizing provider: MD Alexandria Brannon would like a refill of the following medications: HYDROcodone-acetaminophen (NORCO) 5-325 MG per tablet [Esperanza Gatica MD] Preferred pharmacy: [id number] Comment: Dr. Gatica is my Doctor. Medication renewals requested in this message routed to other providers: lisinopril-hydrochlorothiazide (PRINZIDE,ZESTORETIC) 10-12.5 MG per tablet [Royer Brumfield MD] documented in this encounter Plan of Treatment Upcoming Encounters Date Type Department Care Team (Late st Contact Info) Description 09/07/2024 10:00 AM CDT Office Visit [facility] Specialty [address] [phone] Fransisco Eddy MD [address] [place] [address] 022215 03/29/2025 3:40 PM CDT Office Visit [address] [phone] Alfreda Ray PA-C [address] [place] [address] 949762 documented as of this encounter Visit Diagnoses Diagnosis Osteoarthritis Osteoarthrosis, unspecified whether generalized or localized, unspecified site HTN (hypertension), benign Essential hypertension, benign documented in this encounter Additional Health Concerns Infection Onset Date Last Indicated Resolved Time Rule Out COVID-19 05/08/2021 05/08/2021 05/09/2021 9:08 PM POWDERER documented as of this encounter Care Teams Associate Professor Of Geology Relationship Specialty Start Date End Date Esperanza Gatica MD PCP - General Family Practice 10/13/11 12/29/21 [place] [address] [address] GARC[place] [address] PCP - Assigned PCP 12/05/17 08/23/18 Alfreda Ray PA-C [address] [place] [address] PCP - General Family Medicine 12/30/21 [place] [address] [place] GARCIA [address] Assigned PCP 12/05/17 09/30/19 [place] [address] [place] GARCIA [address] Assigned PCP 10/01/19 03/02/20 [place] [address] [address] GARCIA 31896 Assigned PCP 03/03/20 05/25/20 [place] [address] [address] GARCIA [address]686 Assigned PCP 05/26/20 09/28/20 [place] [address] [place] GARCIA [address] Assigned PCP 09/29/20 07/31/22 [place] [address] [address] Assigned Musculoskeletal Provider 10/20/20 04/17/22 Alfreda Ray PA-C [address] [place] [address] Referring Physician Family Medicine 12/31/21 Katrin Orellana PA-C [address] [place] [address] Physician Semiconductor Bonder Dermatology 12/31/21 Shanna Vang PA-C [address] [address] Assigned Cancer Care Provider 01/10/22 Fransisco Eddy MD [address] [place] [address] Assigned Rheumatology Provider 05/09/22 [place] [address] [address] GARCIA [address] Assigned Pain Medication Provider 06/29/22 09/04/22 [place] [address] [address] GARCIA [address] Assigned PCP 08/15/22 08/28/22 Katrin Orellana PA-C [address] [place] [address]97 Assigned Surgical Provider 08/15/22 02/10/24 Cristina Hsieh RPH [address] [facility] [place] [address] Pharmacist Pharmacist 09/07/22 Alfreda Ray PA-C [address] [place] [address] 383672 Assigned Pain Medication Provider 09/05/22 09/10/23 Alfreda Ray PA-C [address] [place] [address] 003802 Assigned PCP 08/29/22 Cristina Hsieh RPH [address] [place] [address] Assigned MTM Pharmacist 09/26/22 Dakota Tatum MD [address] [place] [address] Cardiovascular Disease 03/25/23 Dakota Tatum MD [address] [place] [address] Assigned Heart and Vascular Provider 05/01/23 [place] [address] 601537 Assigned Musculoskeletal Provider 04/12/24 documented as of this encounter
--- OUTSIDE RECORDS SUMMARY | 2024-06-22 23:15 | XMS_ITS | Encounter Summary ---
Author Organization [place] Address [address] [place] [address] Care Team Providers Care Special Agent Group Insurance Name Role Phone Esperanza Gatica MD Primary Care Provider + Esperanza Gatica MD Unavailable +[phone] Esperanza Gatica MD Unavailable +[phone] Esperanza Gatica MD Unavailable +[phone] Esperanza Gatica MD Unavailable +[phone] Esperanza Gatica MD Unavailable +[phone] Esperanza Gatica MD Unavailable +[phone] Jesús Orourke MD Unavailable Alfreda RayC Primary Care Provider + Alfreda Ray PA-C Unavailable + [phone] Katrin Orellana PA-C Unavailable +[phone] Shanna VangC Unavailable +[phone] Fransisco Eddy MD Unavailable +[phone] Esperanza Gatica MD Unavailable +[phone] Esperanza Gatica MD Unavailable +[phone] Katrin Orellana PA-C Unavailable Cristina Hsieh [facility] Unavailable Cory Alfreda Liu PA-C Unavailable Ho Raymustapha Liu PA-C Unavailable [phone] Cristina Hsieh [facility] Unavailable Dakota Tatum MD Unavailable Dakota Tatum MD Unavailable Srinivas Marie DO Unavailable [phone] Reason for Visit * Reason Onset Date Comments Formulary Issue 11/13/2014 Zolpidem 5mg Encounter Details Date Type Department Care Team (Late st Contact Info) Description 11/13/2014 MyC Medical Advice [place] 764215 [facility] [address] [place] [address] [place] [address] [place] [address] Formulary Issue (Zolpidem 5mg) Social History Tobacco Use Types Packs/Day Years Used Date Smoking Tobacco: Former Cigarettes 1 5 0 06/21/1968 - 06/21/1973 Smokeless Tobacco: Former Alcohol Use Standard Drinks/Week Comments Yes 0 (1 standard drink = 0.6 oz pure alcohol) Very occasionally - 2 per month Comments No Sex and Gender Information Value Date Recorded Sex Assigned at Female 08/17/2018 7:56 AM ACCOUNT SUPPORT ANALYST Legal Sex Female 4:24 AM ACCOUNT SUPPORT ANALYST Gender Identity Female 08/17/2018 7:56 AM ACCOUNT SUPPORT ANALYST Sexual Orientation Straight 08/17/2018 7: 56 AM ACCOUNT SUPPORT ANALYST documented as of this encounter Plan of Treatment Upcoming Encounters Date Type Department Care Team (Late st Contact Info) Description 09/07/2024 10:00 AM CDT Office Visit [facility] [address] [place] [address] Fransisco Eddy MD [address] [place] [address] 03/29/2025 3:40 PM CDT Office Visit [address] [phone] Alfreda Ray PA-C [address] [place] [address] 83[address] documented as of this encounter Visit Diagnoses Not on filedocumented in this encounter Additional Health Concerns Infection Onset Date Last Indicated Resolved Time Rule Out COVID-19 05/08/2021 05/08/2021 05/09/2021 9:08 PM ACCOUNT SUPPORT ANALYST documented as of this encounter Care Teams Special Agent Group Insurance Relationship Specialty Start Date End Date Esperanza Gatica MD PCP - General Family Practice 10/13/11 12/29/21 [place] [address] L[place] GARCIA [address] PCP - Assigned PCP 12/05/17 08/23/18 Alfreda Ray PA-C [address] [place] [address]69 PCP - General Family Medicine 12/30/21 [place] [address] [place] GARCIA [address] Assigned PCP 12/05/17 09/30/19 [place] [address] [place] GARCIA [address] Assigned PCP 10/01/19 03/02/20 [place] [address] [place] [address] Assigned PCP 03/03/20 05/25/20 [place] [address] [place] [address] Assigned PCP 05/26/20 09/28/20 [place] [address] [place] [address] Assigned PCP 09/29/20 07/31/22 Jesú[place] [address] [facility] [place] [address] Assigned Musculoskeletal Provider 10/20/20 04/17/22 Alfreda Ray PA-C [address] [place] [address] [phone] Referring Physician Family Medicine 12/31/21 Katrin Orellana PA-C [address] [place] [address] 799635 Physician Development Consultant Dermatology 12/31/21 Shanna Vang PA-C [address] [place] [address] 434454 Assigned Cancer Care Provider 01/10/22 Fransisco Eddy MD [address] [place] [address] 665[address] Assigned Rheumatology Provider 05/09/22 [place] [address] [place] [address] Assigned Pain Medication Provider 06/29/22 09/04/22 [place] [address] [place] [address] Assigned PCP 08/15/22 08/28/22 Katrin Orellana PA-C [address] [place] [address] 98 [place], [place] 902465 Assigned Surgical Provider 08/15/22 02/10/24 Cristina Hsieh [facility] [address] [facility] L[place]BETH HERNANDEZ [address] Pharmacist Pharmacist 09/07/22 Alfreda aRy PA-C [address] [place] [address] 412592 Assigned Pain Medication Provider 09/05/22 09/10/23 Alfreda Ray PA-C [address] [place] [address]80 Assigned PCP 08/29/22 Cristina Hsieh [facility] [address] [address] Assigned MTM Pharmacist 09/26/22 Dakota Tatum MD 516 [place] [address] Cardiovascular Disease 03/25/23 Dakota Tatum MD [address] [place] [address] Assigned Heart and Vascular Provider 05/01/23 [place] [address] [facility], [address] [address] Assigned Musculoskeletal Provider 04/12/24 documented as of this encounter
--- OUTSIDE RECORDS SUMMARY | 2024-06-22 23:15 | XMS_ITS | Encounter Summary ---
Author Organization [place] Address [address] [place] [address] Care Team Providers Care Wool Handler Name Role Phone Esperanza Gatica MD Primary Care Provider + Esperanza Gatica MD Unavailable +[phone] Esperanza Gatica MD Unavailable +[phone] Esperanza Gatica MD Unavailable +131 Esperanza Gatica MD Unavailable +252 Esperanza Gatica MD Unavailable +[phone] Esperanza Gatica MD Unavailable +[phone] Jesús Orourke MD Unavailable Alfreda RayC Primary Care Provider + Alfreda Ray PA-C Unavailable + [phone] Katrin Orellana PA-C Unavailable +[phone] Shanna VangC Unavailable +[phone] Fransisco Eddy MD Unavailable +[phone] Esperanza Gatica MD Unavailable +[phone] Esperanza Gatica MD Unavailable +[phone] Katrin Orellana PA-C Unavailable Cristina Hsieh [facility] Unavailable Cory Alfreda Liu PA-C Unavailable +[phone] Ho Raymustapha Liu PA-C Unavailable +[phone] Cristina Hsieh [facility] Unavailable [phone] Dakota Tatum MD Unavailable [phone] Dakota Tatum MD Unavailable [phone] Srinivas Marie DO Unavailable [phone] Reason for Visit * Reason Onset Date Comments Refill Request 07/02/2014 Tramadol 50mg Encounter Details Date Type Department Care Team (Late st Contact Info) Description 07/02/2014 MyC Medical Advice [address], [facility] [address] [place] [address] [place] [address] [place] [address] Refill Request (Tramadol 50mg) Social History Tobacco Use Types Packs/Day Years Used Date Smoking Tobacco: Former Cigarettes Q uit: 06/21/1973 Smokeless Tobacco: Former Alcohol Use Standard Drinks/Week Comments Yes 0 (1 standard drink = 0.6 oz pur e alcohol) rarely Comments No Sex and Gender Information Value Date Recorded Sex Assigned at Female 08/17/2018 7:56 AM CASH MANAGER Legal Sex Female 4:24 AM CASH MANAGER Gender Identity Female 08/17/2018 7:56 AM CASH MANAGER Sexual Orientation Straight 08/17/2018 7: 56 AM CASH MANAGER documented as of this encounter Miscellaneous Notes * Telephone Encounter - Leigha Rinaldi RN - 07/03/2014 9:13 AM CST Pending Prescriptions: Disp Refills traMADol (ULTRAM) 50 MG tablet 30 tab*0 Sig: Take 1 tablet (50 mg) by mouth every 6 hours as needed for pain Last OV: 03/29/2014 Reason: IBS Last filled: 06/04/2014 #30 Leigha Rinaldi RN MANAGER documented in this encounter Plan of Treatment Upcoming Encounters Date Type Department Care Team (Late st Contact Info) Description 09/07/2024 10:00 AM CDT Office Visit [facility] [address] 200 [place] [phone] Fransisco Eddy MD [address] [place] [address] 047375 03/29/2025 3:40 PM CDT Office Visit [address] [phone] Alfreda Ray PA-C [address] [place] [address] 667562 documented as of this encounter Visit Diagnoses Diagnosis HTN (hypertension), benign- Primary Essential hypertension, benign documented in this encounter Additional Health Concerns Infection Onset Date Last Indicated Resolved Time Rule Out COVID-19 05/08/2021 05/08/2021 05/09/2021 9:08 PM CASH MANAGER documented as of this encounter Care Teams Wool Handler Relationship Specialty Start Date End Date Esperanza Gatica MD PCP - General Family Practice 10/13/11 12/29/21 [place] [address] L[place] GARCIA [address] PCP - Assigned PCP 12/05/17 08/23/18 Alfreda Ray PA-C [address] [place] [address] PCP - General Family Medicine 12/30/21 [place] [address] [place] [address] Assigned PCP 12/05/17 09/30/19 [place] [address] [place] [address] Assigned PCP 10/01/19 03/02/20 [place] [address] [place] [address] Assigned PCP 03/03/20 05/25/20 [place] [address] [place] [address] Assigned PCP 05/26/20 09/28/20 [place] [address] [place] [address] Assigned PCP 09/29/20 07/31/22 Jesú[place] [address] [place] [address] Assigned Musculoskeletal Provider 10/20/20 04/17/22 Alfreda Ray PA-C [address] [place] [address] 792672 Referring Physician Family Medicine 12/31/21 Katrin Orellana PA-C [address] [place] [address] Physician Project Archivist Dermatology 12/31/21 Shanna Vang PA-C [address] [place] [address] Assigned Cancer Care Provider 01/10/22 Fransisco Eddy MD [address] [place] [address] 88 [place] [address] Assigned Rheumatology Provider 05/09/22 [place] [address] [place] [address] Assigned Pain Medication Provider 06/29/22 09/04/22 [place] [address] [place] [address] Assigned PCP 08/15/22 08/28/22 Katrin Orellana PA-C [address] [place] [address] 98 [place] [address] Assigned Surgical Provider 08/15/22 02/10/24 Cristina Hsieh [facility] [address] [place] [address] LISBETH HERNANDEZ [address] Pharmacist Pharmacist 09/07/22 Alfreda Ray PA-C [address] [place] [address] 872312 Assigned Pain Medication Provider 09/05/22 09/10/23 Alfreda Ray PA-C [address] [place] [address] Assigned PCP 08/29/22 Cristina Hsieh [facility] 1600 [facility] 101 [place] [address] Assigned MTM Pharmacist 09/26/22 Dakota Tatum MD [address] [place] [address] Cardiovascular Disease 03/25/23 Dakota Tatum MD [address] [place] [address]687 Assigned Heart and Vascular Provider 05/01/23 [place] [address] [address], [facility] [address] [place] [address] Assigned Musculoskeletal Provider 04/12/24 documented as of this encounter
--- OUTSIDE RECORDS SUMMARY | 2024-06-22 23:15 | XMS_ITS | Encounter Summary ---
Author Organization [place] Address [address] [place] [address] Care Team Providers Care Corn Grinder Name Role Phone Esperanza Gatica MD Primary Care Provider + Esperanza Gatica MD Unavailable +[phone] Esperanza Gatica MD Unavailable +[phone] Esperanza Gatica MD Unavailable +[phone] Esperanza Gatica MD Unavailable +115 Esperanza Gtaica MD Unavailable +[phone] Esperanza Gatica MD Unavailable +[phone] Jesús Orourke MD Unavailable Alfreda RayC Primary Care Provider + Alfreda Ray PA-C Unavailable + [phone] Katrin Orellana PA-C Unavailable [phone] Shanna VangC Unavailable +[phone] Fransisco Eddy MD Unavailable [phone] Esperanza Gatica MD Unavailable +[phone] Esperanza Gatica MD Unavailable +[phone] Katrin Orellana PA-C Unavailable Cristina Hsieh [facility] Unavailable Cory Alfreda Liu PA-C Unavailable Ray, Alfreda Liu PA-C Unavailable +[phone] Cristina Hsieh [facility] Unavailable Dakota Tatum MD Unavailable Dakota Tatum MD Unavailable Srinivas Marie DO Unavailable [phone] Reason for Visit * Reason Onset Date Comments Refill Request 12/22/2014 Lisinopril-HCTZ 10-12.5mg Encounter Details Date Type Department Care Team (Late st Contact Info) Description 12/22/2014 MyC Medical Advice [address], [address] [place] [address] [place] [address] [place] [address] Refill Request (Lisinopril-HCTZ 10-12.5mg) Social History Tobacco Use Types Packs/Day Years Used Date Smoking Tobacco: Former Cigarettes 1 5 0 06/21/1968 - 06/21/1973 Smokeless Tobacco: Former Alcohol Use Standard Drinks/Week Comments Yes 0 (1 standard drink = 0.6 oz pure alcohol) Very occasionally - 2 per month Comments No Sex and Gender Information Value Date Recorded Sex Assigned at Female 08/17/2018 7:56 AM FILM LIBRARIAN Legal Sex Female 4:24 AM FILM LIBRARIAN Gender Identity Female 08/17/2018 7:56 AM FILM LIBRARIAN Sexual Orientation Straight 08/17/2018 7: 56 AM FILM LIBRARIAN documented as of this encounter Miscellaneous Notes * Telephone Encounter - Leigha Rinaldi RN - 12/24/2014 8:16 AM CDT Lisinopril-HCTZ Last Written Prescription Date: 06/18/2014 Last Fill Quantity: 90 , # refills: 1 Last Office Visit with [facility] primary care provider: 5/18/ POTASSIUM Date Value Ref Range Status 07/10/2014 4.3 3.4 - 5.3 mmol/L Final CREATININE Date Value Ref Range Status 07/10/2014 0.89 0.52 - 1.04 mg/dL Final BP Readings from Last 3 Encounters: 12/06/14 126/64 08/07/14 130/88 07/10/14 116/60 Will give 1 refill to get patient though. Patient needs updated blood work. Orders placed already. Letter sent to patient. Medication approved per standing orders. Leigha Rinaldi RN documented in this encounter Plan of Treatment Upcoming Encounters Date Type Department Care Team (Late st Contact Info) Description 09/07/2024 10:00 AM CDT Office Visit [facility] [address] 200 [place] [phone] Fransisco Eddy MD [address] [place] [address] 105355 03/29/2025 3:40 PM CDT Office Visit [address] [phone] Alfreda Ray PA-C [address] [place] [address] 614242 documented as of this encounter Visit Diagnoses Diagnosis Insomnia, unspecified- Primary HTN (hypertension), benign Essential hypertension, benign documented in this encounter Additional Health Concerns Infection Onset Date Last Indicated Resolved Time Rule Out COVID-19 05/08/2021 05/08/2021 05/09/2021 9:08 PM FILM LIBRARIAN documented as of this encounter Care Teams Corn Grinder Relationship Specialty Start Date End Date Esperanza Gatica MD PCP - General Family Practice 10/13/11 12/29/21 [place] [address] [place] [address] PCP - Assigned PCP 12/05/17 08/23/18 Alfreda Ray PA-C [address] [place] [address] PCP - General Family Medicine 12/30/21 [place] [address] [place] [address] Assigned PCP 12/05/17 09/30/19 [place] [address] [place] [address] Assigned PCP 10/01/19 03/02/20 [place] [address] [place] [address] Assigned PCP 03/03/20 05/25/20 [place] [address] [place] [address] Assigned PCP 05/26/20 09/28/20 [place] [address] [place] [address] Assigned PCP 09/29/20 07/31/22 Jesú[place] [address] [place], [place] [address] Assigned Musculoskeletal Provider 10/20/20 04/17/22 Alfreda Ray PA-C [address] [place] [address] Referring Physician Family Medicine 12/31/21 Katrin Orellana PA-C [address] 096155 Physician Sales Route Driver Dermatology 12/31/21 Shanna Vang PA-C [address] [place] [address] [id number] Assigned Cancer Care Provider 01/10/22 Fransisco Eddy MD [address] [place] [address] 654165 Assigned Rheumatology Provider 05/09/22 [place] [address] [place] [address] Assigned Pain Medication Provider 06/29/22 09/04/22 [place] [address] [address] [place] [address] Assigned PCP 08/15/22 08/28/22 Katrin Orellana PA-C [address] [place] [address] 730865 Assigned Surgical Provider 08/15/22 02/10/24 Cristina Hsieh [facility] [address] [facility] [place]BETH HERNANDEZ [address] Pharmacist Pharmacist 09/07/22 Alfreda Ray PA-C [address] [place] [address] Assigned Pain Medication Provider 09/05/22 09/10/23 Alfreda Ray PA-C [address] [place] [address] 77744 Assigned PCP 08/29/22 Cristina Hsieh, [facility] [address] [address] Assigned MTM Pharmacist 09/26/22 Dakota Tatum MD [address] [place] [address] 450515 Cardiovascular Disease 03/25/23 Dakota Tatum MD [address] [place] [address] 224655 Assigned Heart and Vascular Provider 05/01/23 [place] [address] [address], [address] [address] Assigned Musculoskeletal Provider 04/12/24 documented as of this encounter
--- OUTSIDE RECORDS SUMMARY | 2024-06-22 23:15 | XMS_ITS | Encounter Summary ---
Author Organization [place] Address [address] [place] [address] Care Team Providers Care Business Dean Name Role Phone Esperanza Gatica MD Primary Care Provider + Esperanza Gatica MD Unavailable +[phone] Esperanza Gatica MD Unavailable +730 Esperanza Gatica MD Unavailable +121 Esperanza Gatica MD Unavailable +090 Esperanza Gatica MD Unavailable +[phone] Esperanza Gatica MD Unavailable +[phone] Jesús Orourke MD Unavailable Alfreda RayC Primary Care Provider + Alfreda Ray PA-C Unavailable + [phone] Katrin Orellana PA-C Unavailable [phone] Shanna VangC Unavailable +[phone] Fransisco Eddy MD Unavailable [phone] Esperanza Gatica MD Unavailable +[phone] Esperanza Gatica MD Unavailable +[phone] Katrin Orellana PA-C Unavailable Cristina Hsieh [facility] Unavailable Cory Alfreda Liu PA-C Unavailable [phone] Alfreda Ray Alexa KING Unavailable [phone] Cristina Hsieh [facility] Unavailable Dakota Tatum MD Unavailable Dakota Tatum MD Unavailable Srinivas Marie DO Unavailable Reason for Visit * Reason Onset Date Comments Refill Request 08/30/2013 Multiple meds Encounter Details Date Type Department Care Team (Late st Contact Info) Description 08/30/2013 MyC Medical Advice [place] 135695 [facility], [facility] 100 [place] [address] [place] [address] [place] [address] Refill Request (Multiple meds) Social History Tobacco Use Types Packs/Day Years Used Date Smoking Tobacco: Former Cigarettes Q uit: 06/21/1973 Smokeless Tobacco: Former Alcohol Use Standard Drinks/Week Comments Yes 0 (1 standard drink = 0.6 oz pur e alcohol) rarely Comments No Sex and Gender Information Value Date Recorded Sex Assigned at Female 08/17/2018 7:56 AM BRICKLAYER Legal Sex Female 4:24 AM BRICKLAYER Gender Identity Female 08/17/2018 7:56 AM BRICKLAYER Sexual Orientation Straight 08/17/2018 7: 56 AM BRICKLAYER documented as of this encounter Plan of Treatment Upcoming Encounters Date Type Department Care Team (Late st Contact Info) Description 09/07/2024 10:00 AM CDT Office Visit [address] 200 [place] [address] Fransisco Eddy MD [address] [place] [address] 03/29/2025 3:40 PM CDT Office Visit [address] [phone] Alfreda Ray PA-C [address] [place] [address] documented as of this encounter Visit Diagnoses Diagnosis HTN (hypertension), benign- Primary Essential hypertension, benign Insomnia, unspecified Hyperlipidemia LDL goal <160 Other and unspecified hyperlipidemia documented in this encounter Additional Health Concerns Infection Onset Date Last Indicated Resolved Time Rule Out COVID-19 05/08/2021 05/08/2021 05/09/2021 9:08 PM BRICKLAYER documented as of this encounter Care Teams Business Dean Relationship Specialty Start Date End Date Esperanza Gatica MD PCP - General Family Practice 10/13/11 12/29/21 [place] [address] L[place] GARCIA [address] PCP - Assigned PCP 12/05/17 08/23/18 Alfreda Ray PA-C [address] [place] [address] 943062 PCP - General Family Medicine 12/30/21 [place] [address] [place] GARCIA [address] Assigned PCP 12/05/17 09/30/19 [place] [address] L[place] GARCIA [address] Assigned PCP 10/01/19 03/02/20 [place] [address] [place] [address] Assigned PCP 03/03/20 05/25/20 [place] [address] [place] [address] Assigned PCP 05/26/20 09/28/20 [place] [address] [place] [address] Assigned PCP 09/29/20 07/31/22 [place] [address] [place] [address] Assigned Musculoskeletal Provider 10/20/20 04/17/22 Alfreda Ray PA-C [address] [place] [address] [phone] Referring Physician Family Medicine 12/31/21 Katrni Orellana PA-C [address] [place] [address] 98 [place], [place] 966845 Physician Restaurant Expeditor Dermatology 12/31/21 Shanna Vang PA-C [address] [place] [address] 342594 Assigned Cancer Care Provider 01/10/22 Fransisco Eddy MD [address] [place] [address] 416255 Assigned Rheumatology Provider 05/09/22 [place] [address] [place] [address] Assigned Pain Medication Provider 06/29/22 09/04/22 [place] [address] [place] [address] Assigned PCP 08/15/22 08/28/22 Katrin Orellana PA-C [address] [place] [address] 98 [place], [place] 351575 Assigned Surgical Provider 08/15/22 02/10/24 Cristina Hsieh [facility] [address] [facility] [place]NDEZ [address] Pharmacist Pharmacist 09/07/22 Alfreda Ray PA-C [address] [place] [address] 648842 Assigned Pain Medication Provider 09/05/22 09/10/23 Alfreda Ray PA-C [address] [place] [address] Assigned PCP 08/29/22 Cristina Hsieh [facility] [address] [phone] Assigned MTM Pharmacist 09/26/22 Dakota Tatum MD 516 [place] [address] Cardiovascular Disease 03/25/23 Dakota Tatum MD 6 [place], [place] 076905 Assigned Heart and Vascular Provider 05/01/23 [place] [address] [address], [address] [address] Assigned Musculoskeletal Provider 04/12/24 documented as of this encounter
--- OUTSIDE RECORDS SUMMARY | 2024-06-22 23:15 | XMS_ITS | Encounter Summary ---
Author Organization [facility] Address [address] [place] [address] 92[address] Care Team Providers Care Grade And Center Marker Name Role Phone Esperanza Gatica MD Primary Care Provider + Esperanza Gatica MD Unavailable +[phone] Esperanza Gatica MD Unavailable +[phone] Esperanza Gatica MD Unavailable +[phone] Esperanza Gatica MD Unavailable +[phone] Esperanza Gatica MD Unavailable +[phone] Esperanza Gatica MD Unavailable +[phone] Jesús Orourke MD Unavailable Alfreda RayC Primary Care Provider + Alfreda Ray PA-C Unavailable + [phone] Katrin Orellana PA-C Unavailable +[phone] Shanna VangC Unavailable +[phone] Fransisco Eddy MD Unavailable +[phone] Esperanza Gatica MD Unavailable +[phone] Esperanza Gatica MD Unavailable +[phone] Katrin Orellana PA-C Unavailable Cristina Hsieh [facility] Unavailable RayAlfreda PA-C Unavailable +[phone] Cory Alfreda Liu PA-C Unavailable +[phone] Cristina Hsieh [facility] Unavailable +[phone] Dakota Tatum MD Unavailable [phone] Dakota Tatum MD Unavailable [phone] Srinivas Marie DO Unavailable [phone] Reason for Visit * Reason Onset Date Comments Refill Request 06/17/2014 Celebrex, Lisino pril/HCTZ Encounter Details Date Type Department Care Team (Late st Contact Info) Description 06/17/2014 MyC Medical Advice [address], [address] [place] [address] [place] [address] [place] [address] Refill Request (Celebrex, Lisinopril/HCTZ) Social History Tobacco Use Types Packs/Day Years Used Date Smoking Tobacco: Former Cigarettes Q uit: 06/21/1973 Smokeless Tobacco: Former Alcohol Use Standard Drinks/Week Comments Yes 0 (1 standard drink = 0.6 oz pur e alcohol) rarely Comments No Sex and Gender Information Value Date Recorded Sex Assigned at Female 08/17/2018 7:56 AM SENIOR NETWORK SECURITY ARCHITECT Legal Sex Female 4:24 AM SENIOR NETWORK SECURITY ARCHITECT Gender Identity Female 08/17/2018 7:56 AM SENIOR NETWORK SECURITY ARCHITECT Sexual Orientation Straight 08/17/2018 7: 56 AM SENIOR NETWORK SECURITY ARCHITECT documented as of this encounter Miscellaneous Notes * Telephone Encounter - Leigha Rinaldi RN - 06/18/2014 7:49 AM CST Pending Prescriptions: Disp Refills lisinopril-hydrochlorothiazide (PRINZIDE,*90 tab*1 Sig: Take 1 tablet by mouth daily celecoxib (CELEBREX) 200 MG capsule 90 cap*2 Sig: Take 1 capsule (200 mg) by mouth daily DIURETICS (May be Rx'd for edema) Last Office Visit R/T Diagnosis: 03/29/2014 BP Readings from Last 1 Encounters: 03/29/14 112/60 Potassium Date Value Range Status 07/14/2013 4.6 3.4 - 5.3 mmol/L Final ] Creatinine Date Value Range Status 07/14/2013 0.96 0.52 - 1.04 mg/dL Final ] Unable to fill per RN protocol. Will route to provider. Leigha Rinaldi RN OR NETWORK SECURITY ARCHITECT documented in this encounter Plan of Treatment Upcoming Encounters Date Type Department Care Team (Late st Contact Info) Description 09/07/2024 10:00 AM CDT Office Visit [facility] [address] [phone] Fransisco Eddy MD [address] [place] [address] [phone] 03/29/2025 3:40 PM CDT Office Visit [address] [phone] Alfreda Ray PA-C [address] [place] [address] [phone] documented as of this encounter Visit Diagnoses Diagnosis HTN (hypertension), benign- Primary Essential hypertension, benign Osteoarthritis Osteoarthrosis, unspecified whether generalized or localized, unspecified site documented in this encounter Additional Health Concerns Infection Onset Date Last Indicated Resolved Time Rule Out COVID-19 05/08/2021 05/08/2021 05/09/2021 9:08 PM SENIOR NETWORK SECURITY ARCHITECT documented as of this encounter Care Teams Grade And Center Marker Relationship Specialty Start Date End Date Esperanza Gatica MD PCP - General Family Practice 10/13/11 12/29/21 [place] [address] [place] [address] PCP - Assigned PCP 12/05/17 08/23/18 Alfreda Ray PA-C [address] [place] [address] 19147 PCP - General Family Medicine 12/30/21 [place] [address] [place] [address] Assigned PCP 12/05/17 09/30/19 [place] [address] [place] [address] Assigned PCP 10/01/19 03/02/20 [place] [address] [place] [address] Assigned PCP 03/03/20 05/25/20 [place] [address] [place] [address] Assigned PCP 05/26/20 09/28/20 [place] [address] [place] [address] Assigned PCP 09/29/20 07/31/22 [place] [address] [place], [place] [address] Assigned Musculoskeletal Provider 10/20/20 04/17/22 Alfreda Ray PA-C [address] [place] [address] 90446 Referring Physician Family Medicine 12/31/21 Katrin Orellana PA-C [address] 988145 Physician Payment Processor Dermatology 12/31/21 Shanna Vang PA-C [address] [place] [address] [phone] Assigned Cancer Care Provider 01/10/22 Fransisco Eddy MD [address] [place] [address] [phone] Assigned Rheumatology Provider 05/09/22 [place] [address] [place] [address] Assigned Pain Medication Provider 06/29/22 09/04/22 [place] [address] [address] [facility] [place] [address] Assigned PCP 08/15/22 08/28/22 Katrin Orellana PA-C [address] [place] [address] 685785 Assigned Surgical Provider 08/15/22 02/10/24 Cristina Hsieh [facility] [address] [facility] [place] [address] Pharmacist Pharmacist 09/07/22 Alfreda Ray PA-C [address] [place] [address]109 Assigned Pain Medication Provider 09/05/22 09/10/23 Alfreda Ray PA-C [address] [place] [address] 87088 Assigned PCP 08/29/22 Cristina Hsieh, [facility] [address] [address] Assigned MTM Pharmacist 09/26/22 Dakota Tatum MD [address] [place] [address] [phone] Cardiovascular Disease 03/25/23 Dakota Tatum MD [address] [place] [address] [phone] Assigned Heart and Vascular Provider 05/01/23 [place] [address] [address], [address] [address] Assigned Musculoskeletal Provider 04/12/24 documented as of this encounter
--- OUTSIDE RECORDS SUMMARY | 2024-06-22 23:15 | XMS_ITS | Encounter Summary ---
Author Organization [facility] Address [address] [place] [address] 9[address] Care Team Providers Care Florist Designer Name Role Phone Esperanza Gatica MD Primary Care Provider + Esperanza Gatica MD Unavailable +[phone] Esperanza Gatica MD Unavailable +[phone] Esperanza Gatica MD Unavailable +[phone] Esperanza Gatica MD Unavailable +[phone] Esperanza Gatica MD Unavailable +[phone] Esperanza Gatica MD Unavailable +[phone] Jesús Orourke MD Unavailable Alfreda RayC Primary Care Provider + Alfreda Ray PA-C Unavailable + [phone] Katrin Orellana PA-C Unavailable [phone] Shanna VangC Unavailable +[phone] Fransisco Eddy MD Unavailable [phone] Esperanza Gatica MD Unavailable +[phone] Esperanza Gatica MD Unavailable +[phone] Katrin Orellana PA-C Unavailable Cristina Hsieh [facility] Unavailable RayAlfreda PA-C Unavailable +[phone] Cory Alfreda Liu PA-C Unavailable +[phone] Cristina Hsieh [facility] Unavailable [phone] Dakota Tatum MD Unavailable Dakota Tatum MD Unavailable [phone] Srinivas Marie DO Unavailable [phone] Reason for Visit * Reason Onset Date Comments Refill Request 09/23/2013 Lisinopril-HCTZ Encounter Details Date Type Department Care Team (Late st Contact Info) Description 09/23/2013 MyC [facility] [address], [address] [place] [address] [place] [address] [place] [address] Refill Request (Lisinopril-HCTZ) Social History Tobacco Use Types Packs/Day Years Used Date Smoking Tobacco: Former Cigarettes Q uit: 06/21/1973 Smokeless Tobacco: Former Alcohol Use Standard Drinks/Week Comments Yes 0 (1 standard drink = 0.6 oz pur e alcohol) rarely Comments No Sex and Gender Information Value Date Recorded Sex Assigned at Female 08/17/2018 7:56 AM PICKER AND PACKER Legal Sex Female 4:24 AM PICKER AND PACKER Gender Identity Female 08/17/2018 7:56 AM PICKER AND PACKER Sexual Orientation Straight 08/17/2018 7: 56 AM PICKER AND PACKER documented as of this encounter Miscellaneous Notes * Telephone Encounter - Leigha Rinaldi, RN - 09/25/2013 7:51 AM CDT DIURETICS (May be Rx'd for edema) Last Office Visit R/T Diagnosis: 07/14/2013 BP Readings from Last 1 Encounters: 07/14/13 122/60 Potassium Date Value Range Status 07/14/2013 4.6 3.4 - 5.3 mmol/L Final ] Creatinine Date Value Range Status 07/14/2013 0.96 0.52 - 1.04 mg/dL Final ] Medication approved per standing orders. Leigha Rinaldi RN * Telephone Encounter - Leigha Rinaldi RN - 09/25/2013 7:51 AM [facility] Original authorizing provider: MD Alexandria Triplett would like a refill of the following medications: lisinopril-hydrochlorothiazide (PRINZIDE,ZESTORETIC) 10-12.5 MG per tablet [Royer Brumfield MD] Preferred pharmacy: [id number] Comment: Sent from my iPad documented in this encounter Plan of Treatment Upcoming Encounters Date Type Department Care Team (Late st Contact Info) Description 09/07/2024 10:00 AM CDT Office Visit [facility] Special[facility] [address] [phone] Fransisco Eddy MD [address] [place] [address] 449885 03/29/2025 3:40 PM CDT Office Visit [address] [phone] Alfreda Ray PA-C [address] [place] [address] [phone] documented as of this encounter Visit Diagnoses Diagnosis HTN (hypertension), benign- Primary Essential hypertension, benign documented in this encounter Additional Health Concerns Infection Onset Date Last Indicated Resolved Time Rule Out COVID-19 05/08/2021 05/08/2021 05/09/2021 9:08 PM PICKER AND PACKER documented as of this encounter Care Teams Florist Designer Relationship Specialty Start Date End Date Esperanza Gatica MD PCP - General Family Practice 10/13/11 12/29/21 [place] [address] [place] [address] PCP - Assigned PCP 12/05/17 08/23/18 Alfreda Ray PA-C [address] [place] [address] PCP - General Family Medicine 12/30/21 [place] [address] [place] [address] Assigned PCP 12/05/17 09/30/19 [place] [address] [place] [address] Assigned PCP 10/01/19 03/02/20 [place] [address] [place] [address] Assigned PCP 03/03/20 05/25/20 [place] [address] [place] [address] Assigned PCP 05/26/20 09/28/20 [place] [address] [place] [address] Assigned PCP 09/29/20 07/31/22 [place] [address] [place] [address] Assigned Musculoskeletal Provider 10/20/20 04/17/22 Alfreda Ray PA-C [address] [place] [address] 966052 Referring Physician Family Medicine 12/31/21 Katrin Orellana PA-C [address] [place] [address] 647665 Physician Pumping Plant Operator Dermatology 12/31/21 Shanna Vang PA-C [address] [place] [address] 519914 Assigned Cancer Care Provider 01/10/22 Fransisco Eddy MD [address] [place] [address] 734285 Assigned Rheumatology Provider 05/09/22 [place] [address] [facility] [place] [address] Assigned Pain Medication Provider 06/29/22 09/04/22 [place] [address] [place] [address] Assigned PCP 08/15/22 08/28/22 Katrin Orellana PA-C [address] [place] [address] [phone] Assigned Surgical Provider 08/15/22 02/10/24 Cristina Hsieh [facility] [address] [facility] [place] [address] Pharmacist Pharmacist 09/07/22 Alfreda Ray PA-C [address] [place] [address] Assigned Pain Medication Provider 09/05/22 09/10/23 Alfreda Ray PA-C [address] [place] [address] Assigned PCP 08/29/22 Cristina Hsieh, [facility] [address] [address] Assigned MTM Pharmacist 09/26/22 Dakota Tatum MD [address] [place] [address] 90323 Cardiovascular Disease 03/25/23 Dakota Tatum MD [address] [place] [address] 13653 Assigned Heart and Vascular Provider 05/01/23 [place] [address] [address], [facility] [address] [place] [address] Assigned Musculoskeletal Provider 04/12/24 documented as of this encounter
--- OUTSIDE RECORDS SUMMARY | 2024-06-22 23:15 | XMS_ITS | Encounter Summary ---
Author Organization [facility] Address [address] [place] [address]85 Care Team Providers Care Kier Operator Name Role Phone Esperanza Gatica MD Primary Care Provider + Esperanza Gatica MD Unavailable +[phone] Esperanza Gatica MD Unavailable +[phone] Esperanza Gatica MD Unavailable +[phone] Esperanza Gatica MD Unavailable +[phone] Esperanza Gatica MD Unavailable +[phone] Esperanza Gatica MD Unavailable +[phone] Jesús Orourke MD Unavailable Alfreda RayC Primary Care Provider + Alfreda Ray PA-C Unavailable + [phone] Katrin Orellana PA-C Unavailable [phone] Shanna VangC Unavailable +[phone] Fransisco Eddy MD Unavailable [phone] Esperanza Gatica MD Unavailable +[phone] Esperanza Gatica MD Unavailable +[phone] Katrin Orellana PA-C Unavailable Cristina Hsieh [facility] Unavailable Alfreda Ray PA-C Unavailable [phone] Alfreda Ray PA-C Unavailable [phone] Cristina Hsieh [facility] Unavailable Dakota Tatum MD Unavailable Dakota Tatum MD Unavailable Srinivas Marie DO Unavailable [phone] Encounter Details Date Type Department Care Team (Late st Contact Info) Description 06/29/2014 MyC Medical Advice [address], [facility] [address] [place] [address] Fartun Silveira Social History Tobacco Use Types Packs/Day Years Used Date Smoking Tobacco: Former Cigarettes Q uit: 06/21/1973 Smokeless Tobacco: Former Alcohol Use Standard Drinks/Week Comments Yes 0 (1 standard drink = 0.6 oz pur e alcohol) rarely Comments No Sex and Gender Information Value Date Recorded Sex Assigned at Female 08/17/2018 7:56 AM MOTEL MANAGER Legal Sex Female 4:24 AM MOTEL MANAGER Gender Identity Female 08/17/2018 7:56 AM MOTEL MANAGER Sexual Orientation Straight 08/17/2018 7: 56 AM MOTEL MANAGER documented as of this encounter Plan of Treatment Upcoming Encounters Date Type Department Care Team (Late st Contact Info) Description 09/07/2024 10:00 AM CDT Office Visit [facility] [address] [phone] Fransisco Eddy MD [address] [place] [address] 03/29/2025 3:40 PM CDT Office Visit [address] [phone] Alfreda Ray PA-C [address] [place] [address] documented as of this encounter Visit Diagnoses Not on filedocumented in this encounter Additional Health Concerns Infection Onset Date Last Indicated Resolved Time Rule Out COVID-19 05/08/2021 05/08/2021 05/09/2021 9:08 PM MOTEL MANAGER documented as of this encounter Care Teams Kier Operator Relationship Specialty Start Date End Date Esperanza Gatica MD PCP - General Family Practice 10/13/11 12/29/21 [place] [address] [place] [address] PCP - Assigned PCP 12/05/17 08/23/18 Alfreda Ray PA-C [address] [place] [address] PCP - General Family Medicine 12/30/21 [place] [address] [place] [address] Assigned PCP 12/05/17 09/30/19 [place] [address] [place] [address] Assigned PCP 10/01/19 03/02/20 [place] [address] [place] [address] Assigned PCP 03/03/20 05/25/20 [place] [address] [place] [address] Assigned PCP 05/26/20 09/28/20 [place] [address] [place] [address] Assigned PCP 09/29/20 07/31/22 [place] [address] [address] Assigned Musculoskeletal Provider 10/20/20 04/17/22 Alfreda Ray PA-C [address] [place] [address] Referring Physician Family Medicine 12/31/21 Katrin Orellana PA-C [address] [place] [address]185 Physician Bandage Wrapping Machine Operator Dermatology 12/31/21 Shanna Vang PA-C [address] [address] Assigned Cancer Care Provider 01/10/22 Fransisco Eddy MD [address] [place] [place] [address] Assigned Rheumatology Provider 05/09/22 [place] [address] [place] [address] Assigned Pain Medication Provider 06/29/22 09/04/22 [place] [address] [place] [address] Assigned PCP 08/15/22 08/28/22 Katrin Orellana PA-C [address] [place] [address] Assigned Surgical Provider 08/15/22 02/10/24 Cristina Hsieh [facility] [address] [facility] [place] [address] Pharmacist Pharmacist 09/07/22 Alfreda Ray PA-C [address] [place] [address] 530572 Assigned Pain Medication Provider 09/05/22 09/10/23 Alfreda Ray PA-C [address] [place] [address] 786542 Assigned PCP 08/29/22 Cristina Hsieh [facility] [address] [place] [address] Assigned MTM Pharmacist 09/26/22 Dakota Tatum MD [address] [place] [address] Cardiovascular Disease 03/25/23 Dakota Tatum MD [address] [place] [address] Assigned Heart and Vascular Provider 05/01/23 [place] [address] [address] Assigned Musculoskeletal Provider 04/12/24 documented as of this encounter
--- OUTSIDE RECORDS SUMMARY | 2024-06-22 23:16 | XMS_ITS | Encounter Summary ---
Author Organization [facility] Address [address] [place] [address]957 Care Team Providers Care Salesperson Handbags Name Role Phone Ajay Dailey MD Primary Care Provider [phone] Esperanza Gatica MD Primary Care Provider + Esperanza Gatica MD Unavailable + Esperanza Gatica MD Unavailable + Esperanza Gatica MD Unavailable + Esperanza Gatica MD Unavailable + Esperanza Gatica MD Unavailable + Esperanza Gatica MD Unavailable +[phone] Jesús Orourke MD Unavailable Alfreda RayC Primary Care Provider + Alfreda Ray-Gallito Unavailable +[phone] Katrin Orellana PA-C Unavailable Shanna Vang-C Unavailable +[phone] Fransisco Eddy MD Unavailable +[phone] Esperanza Gatica MD Unavailable +[phone] Esperanza Gatica MD Unavailable +[phone] Katrin Orellana PA-C Unavailable [phone] Cristina Hsieh [facility] Unavailable Ho Raymustapha Liu PA-C Unavailable [phone] Ho Raymustapha Liu PA-C Unavailable Cristina Hsieh [facility] Unavailable [phone] Dakota Tatum MD Unavailable [phone] Dakota Tatum MD Unavailable [phone] Srinivas Marie DO Unavailable [phone] Reason for Visit * Reason Onset Date Comments Refill Request 09/07/2011 Encounter Details Date Type Department Care Team (Late st Contact Info) Description 09/07/2011 MyC Refill [address] [phone] Ajay Dailey MD [facility] [place] [address] Refill Request Social History Tobacco Use Types Packs/Day Years Used Date Smoking Tobacco: Former Cigarettes Q uit: 06/21/1973 Smokeless Tobacco: Former Alcohol Use Standard Drinks/Week Comments Yes 0 (1 standard drink = 0.6 oz pur e alcohol) rarely Comments No Sex and Gender Information Value Date Recorded Sex Assigned at Female 08/17/2018 7:56 AM MOP HANDLE ASSEMBLER Legal Sex Female 4:24 AM MOP HANDLE ASSEMBLER Gender Identity Female 08/17/2018 7:56 AM MOP HANDLE ASSEMBLER Sexual Orientation Straight 08/17/2018 7: 56 AM MOP HANDLE ASSEMBLER documented as of this encounter Miscellaneous Notes * Telephone Encounter - Sharon Sosa - 09/08/2011 10:40 AM CDT Medication requested: Ultram 50 mg tabs Date of last office visit related to request: 03/31/11 Knee pain Date last filled: 07/23/11 Qty #[id number] This is not a PSO medication, forwarded to provider for authorization. Michelle Sosa RN * Telephone Encounter - Sharon Sosa - 09/08/2011 10:39 [facility] Original authorizing provider: AJAY DAILEY MD Barbara J Pellicci would like a refill of the following medications: tramadol (ULTRAM) 50 MG tablet [AJAY DAILEY MD] Preferred pharmacy: [facility] Comment: documented in this encounter Plan of Treatment Upcoming Encounters Date Type Department Care Team (Late st Contact Info) Description 09/07/2024 10:00 AM CDT Office Visit [facility] [address] [phone] Fransisco Eddy MD [address] [place] [address] [phone] 03/29/2025 3:40 PM CDT Office Visit [address] [phone] Alfreda Ray PA-C [address] [place] [address] [phone] documented as of this encounter Visit Diagnoses Diagnosis Knee pain Pain in joint, lower leg documented in this encounter Additional Health Concerns Infection Onset Date Last Indicated Resolved Time Rule Out COVID-19 05/08/2021 05/08/2021 05/09/2021 9:08 PM MOP HANDLE ASSEMBLER documented as of this encounter Care Teams Salesperson Handbags Relationship Specialty Start Date End Date Ajay Dailey MD PCP - General Family Practice 01/29/11 10/12/11 Esperanza Gatica MD PCP - General Family Practice 10/13/11 12/29/21 [place] [address] [address], [place] [address] PCP - Assigned PCP 12/05/17 08/23/18 Alfreda Ray PA-C [address] [place] [address] 775642 PCP - General Family Medicine 12/30/21 [place] [address] [place] [address] Assigned PCP 12/05/17 09/30/19 [place] [address] [place] [address] Assigned PCP 10/01/19 03/02/20 [place] [address] [place] [address] Assigned PCP 03/03/20 05/25/20 [place] [address] [place] [address] Assigned PCP 05/26/20 09/28/20 [place] [address] [place] [address] Assigned PCP 09/29/20 07/31/22 [place] [address] [place] [address] Assigned Musculoskeletal Provider 10/20/20 04/17/22 Alfreda Ray PA-C [address] [place] [address] 884372 Referring Physician Family Medicine 12/31/21 Katrin Orellana PA-C [address] [place] [address]97 Physician Clerical And Administrative Workers Dermatology 12/31/21 Shanna Vang PA-C [address] [place] [address] 344114 Assigned Cancer Care Provider 01/10/22 Fransisco Eddy MD [address] [place] [address] [phone] Assigned Rheumatology Provider 05/09/22 [place] [address] [place] [address] Assigned Pain Medication Provider 06/29/22 09/04/22 [place] [address] [place] [address] Assigned PCP 08/15/22 08/28/22 Katrin Orellana PA-C [address] [place] [address] [phone] Assigned Surgical Provider 08/15/22 02/10/24 Cristina Hsieh [facility] [address] [facility] [place] [address] Pharmacist Pharmacist 09/07/22 Alfreda Ray PA-C [address] [place] [address] Assigned Pain Medication Provider 09/05/22 09/10/23 Alfreda Ray PA-C [address] [place] [address]1973 Assigned PCP 08/29/22 Cristina Hsieh, [facility] [address] [place] [address] Assigned MTM Pharmacist 09/26/22 Dakota Tatum MD [address] [place] [address] Cardiovascular Disease 03/25/23 Dakota Tatum MD [address] [place] [address] 83566 Assigned Heart and Vascular Provider 05/01/23 [place] [address] [address] , [address] [address] Assigned Musculoskeletal Provider 04/12/24 documented as of this encounter
--- OUTSIDE RECORDS SUMMARY | 2024-06-22 23:16 | XMS_ITS | Encounter Summary ---
Author Organization [facility] Address [address] [place] [address] Care Team Providers Care Rd Manager Name Role Phone Ajay Vick MD Primary Care Provider [phone] Esperanza Gatica MD Primary Care Provider + Esperanza Gatica MD Unavailable + Esperanza Gatica MD Unavailable + Esperanza Gatica MD Unavailable + Esperanza Gatica MD Unavailable + Esperanza Gatica MD Unavailable + Esperanza Gatica MD Unavailable +[phone] Jesús Orourke MD Unavailable Alfreda RayC Primary Care Provider + Alfreda Ray-Gallito Unavailable +[phone] Katrin Orellana PA-C Unavailable Shanna Vang-C Unavailable +[phone] Fransisco Eddy MD Unavailable +[phone] Esperanza Gatica MD Unavailable +[phone] Esperanza Gatica MD Unavailable +[phone] Katrin Orellana PA-C Unavailable Cristina Hsieh [facility] Unavailable Ho Raymustapha Liu PA-C Unavailable [phone] Ho Raymustapha Liu PA-C Unavailable Cristina Hsieh [facility] Unavailable Dakota Tatum MD Unavailable [phone] Dakota Tatum MD Unavailable [phone] Srinivas Marie DO Unavailable [phone] Reason for Visit * Reason Onset Date Comments Refill Request 07/23/2011 tramadol Encounter Details Date Type Department Care Team (Late st Contact Info) Description 07/23/2011 MyC Refill [address] [address] Ajay Vick MD [address] [place] [address] Refill Request (tramadol) Social History Tobacco Use Types Packs/Day Years Used Date Smoking Tobacco: Former Cigarettes Q uit: 06/21/1973 Smokeless Tobacco: Former Alcohol Use Standard Drinks/Week Comments Yes 0 (1 standard drink = 0.6 oz pur e alcohol) rarely Comments No Sex and Gender Information Value Date Recorded Sex Assigned at Female 08/17/2018 7:56 AM ASSISTANT PROFESSOR OF CRIMINAL JUSTICE Legal Sex Female 4:24 AM ASSISTANT PROFESSOR OF CRIMINAL JUSTICE Gender Identity Female 08/17/2018 7:56 AM ASSISTANT PROFESSOR OF CRIMINAL JUSTICE Sexual Orientation Straight 08/17/2018 7: 56 AM ASSISTANT PROFESSOR OF CRIMINAL JUSTICE documented as of this encounter Miscellaneous Notes * Telephone Encounter - Sharon Sosa - 07/23/2011 9:04 AM CST Medication requested: Ultram 50 mg tabs Date of last office visit related to request: 03/31/11 Date last filled: 05/25/11 Qty #[id number] This is not a PSO medication, forwarded to provider for authorization. Michelle Sosa RN STANT PROFESSOR OF CRIMINAL JUSTICE * Telephone Encounter - Kassandra David - 07/23/2011 9:01 AM CST TRAMADOL Last OV: 03/31/11 Reason for visit: right knee pain Last fill date: 05/25/11 #90 Unable to fill per standing order routed to Dr. Vick for approval. Kassandra David RN STANT PROFESSOR OF CRIMINAL JUSTICE * Telephone Encounter - Kassandra David - 07/23/2011 8:56 [facility] Original authorizing provider: AJAY VICK MD Barbara J Pellicci would like a refill of the following medications: tramadol (ULTRAM) 50 MG tablet [AJAY VICK MD] Preferred pharmacy: [facility] Comment: STANT PROFESSOR OF CRIMINAL JUSTICE documented in this encounter Plan of Treatment Upcoming Encounters Date Type Department Care Team (Late st Contact Info) Description 09/07/2024 10:00 AM CDT Office Visit [facility] [address] [phone] Fransisco Eddy MD [address] [place] [address] 03/29/2025 3:40 PM CDT Office Visit [address] [phone] Alfreda Ray PA-C [address] [place] [address] 298812 documented as of this encounter Visit Diagnoses Diagnosis Knee pain Pain in joint, lower leg documented in this encounter Additional Health Concerns Infection Onset Date Last Indicated Resolved Time Rule Out COVID-19 05/08/2021 05/08/2021 05/09/2021 9:08 PM ASSISTANT PROFESSOR OF CRIMINAL JUSTICE documented as of this encounter Care Teams Rd Manager Relationship Specialty Start Date End Date Ajay Vick MD PCP - General Family Practice 01/29/11 10/12/11 Esperanza Gatica MD PCP - General Family Practice 10/13/11 12/29/21 [place] [address] [place] [address] PCP - Assigned PCP 12/05/17 08/23/18 Alfreda Ray PA-C [address] [place] [address] PCP - General Family Medicine 12/30/21 [place] [address] [place] [address] Assigned PCP 12/05/17 09/30/19 [place] [address] [place] [address] Assigned PCP 10/01/19 03/02/20 [place] [address] [place] [address] Assigned PCP 03/03/20 05/25/20 [place] [address] [place] [address] Assigned PCP 05/26/20 09/28/20 [place] [address] [address] [address] Assigned PCP 09/29/20 07/31/22 Jesú[place] [address] [place] [address] Assigned Musculoskeletal Provider 10/20/20 04/17/22 Alfreda Ray PA-C [address] [place] [address] 705762 Referring Physician Family Medicine 12/31/21 Katrin Orellana PA-C [address] [place] [address] [address] [place], [place] [phone] Physician Reagent Tender Dermatology 12/31/21 Shanna Vang PA-C [address] [phone] Assigned Cancer Care Provider 01/10/22 Fransisco Eddy MD [address] [place] [address] 807065 Assigned Rheumatology Provider 05/09/22 [place] [address] [address] [address] Assigned Pain Medication Provider 06/29/22 09/04/22 [place] [address] [address] [address] Assigned PCP 08/15/22 08/28/22 Katrin Orellana PA-C [address] [facility] 98 [place] [address] Assigned Surgical Provider 08/15/22 02/10/24 Cristina Hsieh [facility] [address] [facility] LISBETH HERNANDEZ [address] Pharmacist Pharmacist 09/07/22 Alfreda Ray PA-C [address] [place] [address] 794962 Assigned Pain Medication Provider 09/05/22 09/10/23 Alfreda Ray PA-C [address] [place] [address] 540222 Assigned PCP 08/29/22 Cristina Hsieh [facility] [address] [address] Assigned MTM Pharmacist 09/26/22 Dakota Tatum MD [address] [place] [address] Cardiovascular Disease 03/25/23 Dakota Tatum MD [address] [place] [address] Assigned Heart and Vascular Provider 05/01/23 [place] [address] [address] Assigned Musculoskeletal Provider 04/12/24 documented as of this encounter
--- OUTSIDE RECORDS SUMMARY | 2024-06-22 23:16 | XMS_ITS | Encounter Summary ---
Author Organization [facility] Address [address] [place] [address] Care Team Providers Care Bump Grader Operator Name Role Phone Esperanza Gatica MD Primary Care Provider + Esperanza Gatica MD Unavailable +[phone] Esperanza Gatica MD Unavailable +[phone] Esperanza Gatica MD Unavailable +[phone] Esperanza Gatica MD Unavailable +[phone] Esperanza Gatica MD Unavailable +[phone] Esperanza Gatica MD Unavailable +[phone] Jesús Orourke MD Unavailable Alfreda RayC Primary Care Provider + Alfreda Ray PA-C Unavailable + [phone] Katrin Orellana PA-C Unavailable [phone] Shanna VangC Unavailable +[phone] Fransisco Eddy MD Unavailable [phone] Esperanza Gatica MD Unavailable +[phone] Esperanza Gatica MD Unavailable +[phone] Katrin Orellana PA-C Unavailable Cristina Hsieh [facility] Unavailable Ho Raymustapha Liu PA-C Unavailable [phone] Alfreda Ray Alexa KING Unavailable +[phone] Cristina Hsieh [facility] Unavailable Dakota Tatum MD Unavailable Dakota Tatum MD Unavailable [phone] Srinivas Marie DO Unavailable [phone] Reason for Visit * Reason Onset Date Comments Refill Request 11/26/2011 vicodin Encounter Details Date Type Department Care Team (Late st Contact Info) Description 11/26/2011 MyC Refill M [address], [facility] [address] [place] [address] [place] [address] [place] [address] Refill Request (vicodin) Social History Tobacco Use Types Packs/Day Years Used Date Smoking Tobacco: Former Cigarettes Q uit: 06/21/1973 Smokeless Tobacco: Former Alcohol Use Standard Drinks/Week Comments Yes 0 (1 standard drink = 0.6 oz pur e alcohol) rarely Comments No Sex and Gender Information Value Date Recorded Sex Assigned at Female 08/17/2018 7:56 AM RELIEF PILOT Legal Sex Female 4:24 AM RELIEF PILOT Gender Identity Female 08/17/2018 7:56 AM RELIEF PILOT Sexual Orientation Straight 08/17/2018 7: 56 AM RELIEF PILOT documented as of this encounter Miscellaneous Notes * Telephone Encounter - Kassandra David - 11/27/2011 10:43 AM CDT VICODIN Last OV: 10/13/11 Reason for visit: htn, hyperlipidemia Last fill date: 10/12/11 #30 0R Unable to fill per standing order routed to Dr. Gatica for approval. Kassandra David RN * Telephone Encounter - Michelleanusha Kassandra - 11/27/2011 10:38 AM CDTMessage from MyChart: Original authorizing provider: MD Alexandria Brannon would like a refill of the following medications: HYDROcodone-acetaminophen (VICODIN) 5-500 MG per tablet [Esperanza Gatica MD] Preferred pharmacy: [facility] [place] Comment: documented in this encounter Plan of Treatment Upcoming Encounters Date Type Department Care Team (Late st Contact Info) Description 09/07/2024 10:00 AM CDT Office Visit [facility]ty [address] [phone] Fransisco Eddy MD [address] [place] [address] 037275 03/29/2025 3:40 PM CDT Office Visit [address] [phone] Alfreda Ray PA-C [address] [place] [address] [phone] documented as of this encounter Visit Diagnoses Diagnosis Osteoarthritis- Primary Osteoarthrosis, unspecified whether generalized or localized, unspecified site documented in this encounter Additional Health Concerns Infection Onset Date Last Indicated Resolved Time Rule Out COVID-19 05/08/2021 05/08/2021 05/09/2021 9:08 PM RELIEF PILOT documented as of this encounter Care Teams Bump Grader Operator Relationship Specialty Start Date End Date Esperanza Gatica MD PCP - General Family Practice 10/13/11 12/29/21 [place] [address] [place] [address] PCP - Assigned PCP 12/05/17 08/23/18 Alfreda Ray PA-C [address] [place] [address] PCP - General Family Medicine 12/30/21 [place] [address] [place] [address] Assigned PCP 12/05/17 09/30/19 [place] [address] [place] [address] Assigned PCP 10/01/19 03/02/20 [place] [address] [place] [address] Assigned PCP 03/03/20 05/25/20 [place] [address] [place] [address] Assigned PCP 05/26/20 09/28/20 [place] [address] [place] [address] Assigned PCP 09/29/20 07/31/22 Jesú[place] [address] [place] [address] Assigned Musculoskeletal Provider 10/20/20 04/17/22 Alfreda Ray PA-C [address] [place] [address] Referring Physician Family Medicine 12/31/21 Katrin Orellana PA-C [address] [place] [address] Physician Leather Cleaner Dermatology 12/31/21 Shanna Vang PA-C [address] [place] [address] Assigned Cancer Care Provider 01/10/22 Fransisco Eddy MD [address] [place] [address] Assigned Rheumatology Provider 05/09/22 [place] [address] [facility] [place] [address] Assigned Pain Medication Provider 06/29/22 09/04/22 [place] [address] [place] [address] Assigned PCP 08/15/22 08/28/22 Katrin Orellana PA-C [address] [place] [address] Assigned Surgical Provider 08/15/22 02/10/24 Cristina Hsieh [facility] [address] [place] [address] LISBETH HERNANDEZ [address] Pharmacist Pharmacist 09/07/22 Alfreda Ray PA-C [address] [place] [address], [place] [address] Assigned Pain Medication Provider 09/05/22 09/10/23 Alfreda Ray PA-C [address] [place] [address] Assigned PCP 08/29/22 Cristina Hsieh, [facility] [address] [place] [address] Assigned MTM Pharmacist 09/26/22 Dakota Tatum MD [address] [place] [address] Cardiovascular Disease 03/25/23 Dakota Tatum MD [address] [place] [address] Assigned Heart and Vascular Provider 05/01/23 [place] [address] [address], [address] [address] Assigned Musculoskeletal Provider 04/12/24 documented as of this encounter
--- OUTSIDE RECORDS SUMMARY | 2024-06-22 23:16 | XMS_ITS | Encounter Summary ---
Author Organization [facility] Address [address] [place] [address] Care Team Providers Care Vocal Teacher Name Role Phone Esperanza Gatica MD Primary Care Provider + Esperanza Gatica MD Unavailable +[phone] Esperanza Gatica MD Unavailable +[phone] Esperanza Gatica MD Unavailable +[phone] Esperanza Gatica MD Unavailable +[phone] Esperanza Gatica MD Unavailable +[phone] Esperanza Gatica MD Unavailable +[phone] Jesús Orourke MD Unavailable Alfreda RayC Primary Care Provider + Alfreda Ray PA-C Unavailable + [phone] Katrin Orellana PA-C Unavailable [phone] Shanna VangC Unavailable +[phone] Fransisco Eddy MD Unavailable [phone] Esperanza Gatica MD Unavailable +[phone] Esperanza Gatica MD Unavailable +[phone] Katrin Orellana PA-C Unavailable Cristina Hsieh [facility] Unavailable Cory Alfreda iLu PA-C Unavailable +[phone] Ho Raymustapha Liu PA-C Unavailable +[phone] Cristina Hsieh [facility] Unavailable [phone] Dakota Tatum MD Unavailable [phone] Dakota Tatum MD Unavailable [phone] Srinivas Marie DO Unavailable [phone] Reason for Visit * Reason Onset Date Comments Refill Request 12/11/2012 Trazodone 50mg Encounter Details Date Type Department Care Team (Late st Contact Info) Description 12/11/2012 MyC Refill [address], [address] [place] [address] [place] [address] [place] [address] Refill Request (Trazodone 50mg) Social History Tobacco Use Types Packs/Day Years Used Date Smoking Tobacco: Former Cigarettes Q uit: 06/21/1973 Smokeless Tobacco: Former Alcohol Use Standard Drinks/Week Comments Yes 0 (1 standard drink = 0.6 oz pur e alcohol) rarely Comments No Sex and Gender Information Value Date Recorded Sex Assigned at Female 08/17/2018 7:56 AM STAGING TECHNICIAN Legal Sex Female 4:24 AM STAGING TECHNICIAN Gender Identity Female 08/17/2018 7:56 AM STAGING TECHNICIAN Sexual Orientation Straight 08/17/2018 7: 56 AM STAGING TECHNICIAN documented as of this encounter Miscellaneous Notes * Telephone Encounter - Leigha Rinaldi - 12/12/2012 8:18 AM CDT INSOMNIA Last Office Visit R/T Diagnosis: 11/08/2012 Trazodone, Amitriptyline OV: 6 mths or as indicated in chart Max refills: 6mth PHQ9 not needed if med is not used for depression Medication approved per standing orders. Leigha Rinaldi RN * Telephone Encounter - Leigha Rinaldi - 12/12/2012 8:17 AM CDTMessage from MyChart: Original authorizing provider: MD Alexandria Brannon would like a refill of the following medications: traZODone (DESYREL) 50 MG tablet [Esperanza Gatica MD] Preferred pharmacy: [id number] Comment: documented in this encounter Plan of Treatment Upcoming Encounters Date Type Department Care Team (Late st Contact Info) Description 09/07/2024 10:00 AM CDT Office Visit [facility] [address] [place] [phone] Fransisco Eddy MD [address] [place] [address] 816805 03/29/2025 3:40 PM CDT Office Visit [address] [phone] Alfreda Ray PA-C [address] [place] [address] [phone] documented as of this encounter Visit Diagnoses Diagnosis Insomnia, unspecified- Primary documented in this encounter Additional Health Concerns Infection Onset Date Last Indicated Resolved Time Rule Out COVID-19 05/08/2021 05/08/2021 05/09/2021 9:08 PM STAGING TECHNICIAN documented as of this encounter Care Teams Vocal Teacher Relationship Specialty Start Date End Date Esperanza Gatica MD PCP - General Family Practice 10/13/11 12/29/21 [place] [address] [place] [address] PCP - Assigned PCP 12/05/17 08/23/18 Alfreda Ray PA-C [address] [place] [address] PCP - General Family Medicine 12/30/21 [place] [address] [place] [address] Assigned PCP 12/05/17 09/30/19 [place] [address] [place] [address] Assigned PCP 10/01/19 03/02/20 [place] [address] [place] [address] Assigned PCP 03/03/20 05/25/20 [place] [address] [place] [address] Assigned PCP 05/26/20 09/28/20 [place] [address] [place] [address] Assigned PCP 09/29/20 07/31/22 Jesú[place] [address] [place] [address] Assigned Musculoskeletal Provider 10/20/20 04/17/22 Alfreda Ray PA-C [address] [place] [address] Referring Physician Family Medicine 12/31/21 Katrin Orellana PA-C [address] [place] [address] Physician Order Processing Specialist Dermatology 12/31/21 Shanna Vang PA-C [address] [place] [address] Assigned Cancer Care Provider 01/10/22 Fransisco Eddy MD [address] [place] [address] Assigned Rheumatology Provider 05/09/22 [place] [address] [address] [place] [address] Assigned Pain Medication Provider 06/29/22 09/04/22 [place] [address] [address] [facility] [place] [address] Assigned PCP 08/15/22 08/28/22 Katrin Orellana PA-C [address] [place] [address] Assigned Surgical Provider 08/15/22 02/10/24 Cristina Hsieh [facility] [address] [place] [address] LISBETH HERNANDEZ [address] Pharmacist Pharmacist 09/07/22 Alfreda Ray PA-C [address] [place] [address] Assigned Pain Medication Provider 09/05/22 09/10/23 Alfreda Ray PA-C [address] [place] [address] Assigned PCP 08/29/22 Cristina Hsieh, [facility] [address] [place] [address] Assigned MTM Pharmacist 09/26/22 Dakota Tatum MD [address] [place] [address] Cardiovascular Disease 03/25/23 Dakota Tatum MD [address] [place] [address] Assigned Heart and Vascular Provider 05/01/23 [place] [address] [address] Assigned Musculoskeletal Provider 04/12/24 documented as of this encounter
--- OUTSIDE RECORDS SUMMARY | 2024-06-22 23:16 | XMS_ITS | Encounter Summary ---
Author Organization [place] Address [address] [place] [address] Care Team Providers Care Automobile Upholsterer Name Role Phone Esperanza Gatica MD Primary Care Provider + Esperanza Gatica MD Unavailable +[phone] Esperanza Gatica MD Unavailable +[phone] Esperanza Gatica MD Unavailable +[phone] Esperanza Gatica MD Unavailable +[phone] Esperanza Gatica MD Unavailable +[phone] Esperanza Gatica MD Unavailable +[phone] Jesús Orourke MD Unavailable Alfreda RayC Primary Care Provider + Alfreda Ray PA-C Unavailable + [phone] Katrin Orellana PA-C Unavailable [phone] Shanna VangC Unavailable +[phone] Fransisco Eddy MD Unavailable +[phone] Esperanza Gatica MD Unavailable +[phone] Esperanza Gatica MD Unavailable +[phone] Katrin Orellana PA-C Unavailable Cristina Hsieh [facility] Unavailable Alfreda Ray PA-C Unavailable +[phone] Ray, Alfreda Liu PA-C Unavailable [phone] Cristina Hsieh [facility] Unavailable Dakota Tatum MD Unavailable Dakota Tatum MD Unavailable [phone] Srinivas Marie DO Unavailable [phone] Reason for Visit * Reason Onset Date Comments Refill Request 01/19/2012 Ambien Encounter Details Date Type Department Care Team (Late st Contact Info) Description 01/19/2012 MyC Refill [address] [phone] [place] [address] [place] [address] Refill Request (Ambien) Social History Tobacco Use Types Packs/Day Years Used Date Smoking Tobacco: Former Cigarettes Q uit: 06/21/1973 Smokeless Tobacco: Former Alcohol Use Standard Drinks/Week Comments Yes 0 (1 standard drink = 0.6 oz pur e alcohol) rarely Comments No Sex and Gender Information Value Date Recorded Sex Assigned at Female 08/17/2018 7:56 AM STRATEGIC DEBRIEFING SPECIALIST Legal Sex Female 4:24 AM STRATEGIC DEBRIEFING SPECIALIST Gender Identity Female 08/17/2018 7:56 AM STRATEGIC DEBRIEFING SPECIALIST Sexual Orientation Straight 08/17/2018 7: 56 AM STRATEGIC DEBRIEFING SPECIALIST documented as of this encounter Miscellaneous Notes * Telephone Encounter - Leigha Rinaldi - 01/19/2012 9:34 AM CDT Med: Ambien Last OV: 12/28/2011 Reason: Osteoarthritis Provider: Dr. Gatica Last filled: 10/13/2011 #90 Leigha Rinaldi RN * Telephone Encounter - Leigha Rinaldi - 01/19/2012 9:21 AM CDTMessage from MyChart: Original authorizing provider: MD Sadia Brannonyovana Fregoso Leeann would like a refill of the following medications: zolpidem (AMBIEN) 10 MG tablet [Esperanza Gatica MD] Preferred pharmacy: [facility] [place] Comment: Sent from my iPhone documented in this encounter Plan of Treatment Upcoming Encounters Date Type Department Care Team (Late st Contact Info) Description 09/07/2024 10:00 AM CDT Office Visit [address] [place] [phone] Fransisco Eddy MD [address] [place] [address] 076645 03/29/2025 3:40 PM CDT Office Visit [address] [phone] Alfreda Ray PA-C [address] [place] [address] [phone] documented as of this encounter Visit Diagnoses Diagnosis Insomnia, unspecified documented in this encounter Additional Health Concerns Infection Onset Date Last Indicated Resolved Time Rule Out COVID-19 05/08/2021 05/08/2021 05/09/2021 9:08 PM STRATEGIC DEBRIEFING SPECIALIST documented as of this encounter Care Teams Automobile Upholsterer Relationship Specialty Start Date End Date Esperanza Gatica MD PCP - General Family Practice 10/13/11 12/29/21 [place] [address] [place] [address] PCP - Assigned PCP 12/05/17 08/23/18 Alfreda Ray PA-C [address] [place] [address] PCP - General Family Medicine 12/30/21 [place] [address] [place] [address] Assigned PCP 12/05/17 09/30/19 [place] [address] [place] [address] Assigned PCP 10/01/19 03/02/20 [place] [address] [address] [place] [address] Assigned PCP 03/03/20 05/25/20 [place] [address] [address] [place] [address] Assigned PCP 05/26/20 09/28/20 [place] [address] [place] [address] Assigned PCP 09/29/20 07/31/22 [place] [address] [place] [address] Assigned Musculoskeletal Provider 10/20/20 04/17/22 Alfreda Ray PA-C [address] [place] [address] Referring Physician Family Medicine 12/31/21 Katrin Orellana PA-C [address] [address] Physician Offset Press Assistant Dermatology 12/31/21 Shanna Vang PA-C [address] [id number] Assigned Cancer Care Provider 01/10/22 Fransisco Eddy MD [address] [place] [address] 237405 Assigned Rheumatology Provider 05/09/22 [place] [address] [place] [address] Assigned Pain Medication Provider 06/29/22 09/04/22 [place] [address] [address]ISB[address] GARCIA [address] Assigned PCP 08/15/22 08/28/22 Katrin Orellana PA-C [address] [place] [address] Assigned Surgical Provider 08/15/22 02/10/24 Cristina Hsieh [facility] [address] [facility] LISBETH HERNANDEZ [address] Pharmacist Pharmacist 09/07/22 Alfreda Ray PA-C [address] [place] [address] Assigned Pain Medication Provider 09/05/22 09/10/23 Alfreda Ray PA-C [address] [place] [address] Assigned PCP 08/29/22 Cristina Hsieh [facility] [address] [facility] [address] [place] [address] Assigned MTM Pharmacist 09/26/22 Dakota Tatum MD [address] [place] [address] 750085 Cardiovascular Disease 03/25/23 Dakota Tatum MD [address] [place] [address] 852015 Assigned Heart and Vascular Provider 05/01/23 [place] [address] [address], [facility] [address] [place] [address] Assigned Musculoskeletal Provider 04/12/24 documented as of this encounter
--- OUTSIDE RECORDS SUMMARY | 2024-06-22 23:16 | XMS_ITS | Encounter Summary ---
Author Organization [facility] Address [address] [place] [address] Care Team Providers Care Director School Of Nursing Name Role Phone Esperanza Gatica MD Primary Care Provider + Esperanza Gatica MD Unavailable +[phone] Esperanza Gatica MD Unavailable +[phone] Esperanza Gatica MD Unavailable +[phone] Esperanza Gatica MD Unavailable +[phone] Esperanza Gatica MD Unavailable +[phone] Esperanza Gatica MD Unavailable +[phone] Jesús Oruorke MD Unavailable Alfreda RayC Primary Care Provider + Alfreda Ray PA-C Unavailable + [phone] Katrin Orellana PA-C Unavailable +[phone] Shanna VangC Unavailable +[phone] Fransisco Eddy MD Unavailable +[phone] Esperanza Gatica MD Unavailable +[phone] Esperanza Gatica MD Unavailable +[phone] Katrin Orellana PA-C Unavailable Cristina Hsieh [facility] Unavailable Cory Alfreda Liu PA-C Unavailable +[phone] Alfreda Ray Alexa KING Unavailable +[phone] Cristina Hsieh [facility] Unavailable +[phone] Dakota Tatum MD Unavailable Dakota Tatum MD Unavailable [phone] Srinivas Marie DO Unavailable [phone] Reason for Visit * Reason Onset Date Comments Refill Request 09/22/2012 Ultram 50mg Encounter Details Date Type Department Care Team (Late st Contact Info) Description 09/22/2012 MyC Refill [address], [facility] 100 [place] [address] [place] [address] [place] [address] Refill Request (Ultram 50mg) Social History Tobacco Use Types Packs/Day Years Used Date Smoking Tobacco: Former Cigarettes Q uit: 06/21/1973 Smokeless Tobacco: Former Alcohol Use Standard Drinks/Week Comments Yes 0 (1 standard drink = 0.6 oz pur e alcohol) rarely Comments No Sex and Gender Information Value Date Recorded Sex Assigned at Female 08/17/2018 7:56 AM STRETCHING PRESS OPERATOR Legal Sex Female 4:24 AM STRETCHING PRESS OPERATOR Gender Identity Female 08/17/2018 7:56 AM STRETCHING PRESS OPERATOR Sexual Orientation Straight 08/17/2018 7: 56 AM STRETCHING PRESS OPERATOR documented as of this encounter Miscellaneous Notes * Telephone Encounter - Leigha Rinaldi - 09/22/2012 9:13 AM CDT Med: Ultram 50mg Last OV: 06/23/2012 Reason: Insomnia Last filled: 05/30/2012 #90 Leigha Rinaldi RN * Telephone Encounter - Leigha Rinaldi - 09/22/2012 9:13 AM CDTMessage from MyChart: Original authorizing provider: MD Alexandria Brannon would like a refill of the following medications: traMADol (ULTRAM) 50 MG tablet [Esperanza Gatica MD] Preferred pharmacy: [id number] - [place], [place] - [address] [place] [address] Comment: documented in this encounter Plan of Treatment Upcoming Encounters Date Type Department Care Team (Late st Contact Info) Description 09/07/2024 10:00 AM CDT Office Visit [address] 200 [place] [phone] Fransisco Eddy MD [address] [place] [address] 03/29/2025 3:40 PM CDT Office Visit [address] [phone] Alfreda Ray PA-C [address] [place] [address] 556302 documented as of this encounter Visit Diagnoses Diagnosis Knee pain Pain in joint, lower leg documented in this encounter Additional Health Concerns Infection Onset Date Last Indicated Resolved Time Rule Out COVID-19 05/08/2021 05/08/2021 05/09/2021 9:08 PM STRETCHING PRESS OPERATOR documented as of this encounter Care Teams Director School Of Nursing Relationship Specialty Start Date End Date Esperanza Gatica MD PCP - General Family Practice 10/13/11 12/29/21 [place] [address] [place] [address] PCP - Assigned PCP 12/05/17 08/23/18 Alfreda Ray PA-C [address] [place] [address] PCP - General Family Medicine 12/30/21 [place] [address] [place] [address] Assigned PCP 12/05/17 09/30/19 [place] [address] [place] [address] Assigned PCP 10/01/19 03/02/20 [place] [address] [place] [address] Assigned PCP 03/03/20 05/25/20 [place] [address] [place] [address] Assigned PCP 05/26/20 09/28/20 [place] [address] [place] [address] Assigned PCP 09/29/20 07/31/22 [place] [address] [place] [address] Assigned Musculoskeletal Provider 10/20/20 04/17/22 Alfreda Ray PA-C [address] [place] [address] Referring Physician Family Medicine 12/31/21 Katrin Orellana PA-C [address] [place] [address] Physician Cap Maker Dermatology 12/31/21 Shanna Vang PA-C [address] [place] [address] 859684 Assigned Cancer Care Provider 01/10/22 Fransisco Eddy MD [address] [place] [address] 216495 Assigned Rheumatology Provider 05/09/22 [place] [address] [place] [address] Assigned Pain Medication Provider 06/29/22 09/04/22 [place] [address] [place] [address] Assigned PCP 08/15/22 08/28/22 Katrin Orellana PA-C [address] [place] [address] 358545 Assigned Surgical Provider 08/15/22 02/10/24 Cristina Hsieh [facility] [address] [facility] [place] [address] Pharmacist Pharmacist 09/07/22 Alfreda Ray PA-C [address] [place] [address] Assigned Pain Medication Provider 09/05/22 09/10/23 Alfreda Ray PA-C [address] [place] [address] 624032 Assigned PCP 08/29/22 Cristina Hsieh, [facility] [address] [facility] 101 [place] [address] Assigned MTM Pharmacist 09/26/22 Dakota Tatum MD [address] [place] [address] 545805 Cardiovascular Disease 03/25/23 Dakota Tatum MD [address] [place] [address] 26[address] Assigned Heart and Vascular Provider 05/01/23 [place] [address] [address] , [facility] [address] [place] [address] Assigned Musculoskeletal Provider 04/12/24 documented as of this encounter
--- OUTSIDE RECORDS SUMMARY | 2024-06-22 23:16 | XMS_ITS | Encounter Summary ---
Author Organization [facility] Address [address] [place] [address] Care Team Providers Care Powerhouse Electrician Name Role Phone Esperanza Gatica MD Primary Care Provider + Esperanza Gatica MD Unavailable +[phone] Esperanza Gatica MD Unavailable +[phone] Esperanza Gatica MD Unavailable +[phone] Esperanza Gatica MD Unavailable +[phone] Esperanza Gatica MD Unavailable +[phone] Esperanza Gatica MD Unavailable +[phone] Jesús Orourke MD Unavailable Alfreda RayC Primary Care Provider + Alfreda Ray PA-C Unavailable + [phone] Katrin Orellana PA-C Unavailable [phone] Shanna VangC Unavailable +[phone] Fransisco Eddy MD Unavailable [phone] Esperanza Gatica MD Unavailable +[phone] Esperanza Gatica MD Unavailable +[phone] Katrin Orellana PA-C Unavailable Cristina Hsieh [facility] Unavailable Cory Alfreda Lui PA-C Unavailable +[phone] Alfreda Ray Alexa KING Unavailable +[phone] Cristina Hsieh [facility] Unavailable [phone] Dakota Tatum MD Unavailable Dakota Tatum MD Unavailable [phone] Srinivas Marie DO Unavailable [phone] Reason for Visit * Reason Onset Date Comments Refill Request 11/06/2012 Ambien 10mg Encounter Details Date Type Department Care Team (Late st Contact Info) Description 11/06/2012 MyC Refill M [address], [facility] 100 [place] [address] [place] [address] [place] [address] Refill Request (Ambien 10mg) Social History Tobacco Use Types Packs/Day Years Used Date Smoking Tobacco: Former Cigarettes Q uit: 06/21/1973 Smokeless Tobacco: Former Alcohol Use Standard Drinks/Week Comments Yes 0 (1 standard drink = 0.6 oz pur e alcohol) rarely Comments No Sex and Gender Information Value Date Recorded Sex Assigned at Female 08/17/2018 7:56 AM PATIENT SERVICES MANAGER Legal Sex Female 4:24 AM PATIENT SERVICES MANAGER Gender Identity Female 08/17/2018 7:56 AM PATIENT SERVICES MANAGER Sexual Orientation Straight 08/17/2018 7: 56 AM PATIENT SERVICES MANAGER documented as of this encounter Miscellaneous Notes * Telephone Encounter - Leigha Rinaldi - 11/07/2012 8:53 AM CDT Med: Ambien 10mg Last OV: 06/23/2012 Reason: Insomnia Last filled: 08/29/2012 Leigha Rinaldi RN * Telephone Encounter - Leigha Rinaldi - 11/07/2012 8:52 AM CDTMessage from MyChart: Original authorizing provider: MD Sadia Brannonyovana Fregoso Leeann would like a refill of the following medications: zolpidem (AMBIEN) 10 MG tablet [Esperanza Gatica MD] Preferred pharmacy: [id number] - [address] Comment: Sent from my iPad documented in this encounter Plan of Treatment Upcoming Encounters Date Type Department Care Team (Late st Contact Info) Description 09/07/2024 10:00 AM CDT Office Visit [facility] [address] 200 [place] [phone] Fransisco Eddy MD [address] [place] [address] 03/29/2025 3:40 PM CDT Office Visit [address] [phone] Alfreda Ray PA-C [address] [place] [address] [phone] documented as of this encounter Visit Diagnoses Diagnosis Insomnia, unspecified documented in this encounter Additional Health Concerns Infection Onset Date Last Indicated Resolved Time Rule Out COVID-19 05/08/2021 05/08/2021 05/09/2021 9:08 PM PATIENT SERVICES MANAGER documented as of this encounter Care Teams Powerhouse Electrician Relationship Specialty Start Date End Date Esperanza Gatica MD PCP - General Family Practice 10/13/11 12/29/21 [place] [address] [place] [address] PCP - Assigned PCP 12/05/17 08/23/18 Alfreda Ray PA-C [address] [place] [address] PCP - General Family Medicine 12/30/21 [place] [address] [place] [address] Assigned PCP 12/05/17 09/30/19 [place] [address] [place] [address] Assigned PCP 10/01/19 03/02/20 [place] [address] [place] [address] Assigned PCP 03/03/20 05/25/20 [place] [address] [place] [address] Assigned PCP 05/26/20 09/28/20 [place] [address] [place] [address] Assigned PCP 09/29/20 07/31/22 [place] [address] [address] [place] [address] Assigned Musculoskeletal Provider 10/20/20 04/17/22 Alfreda Ray PA-C [address] [place] [address] Referring Physician Family Medicine 12/31/21 Katrin Orellana PA-C [address] [place] [address] Physician Tube Builder Airplane Dermatology 12/31/21 Shanna Vang PA-C [address] [place] [address] 949634 Assigned Cancer Care Provider 01/10/22 Fransisco Eddy MD [address] [place] [address] 943395 Assigned Rheumatology Provider 05/09/22 [place] [address] [place] [address] Assigned Pain Medication Provider 06/29/22 09/04/22 [place] [address] [place] [address] Assigned PCP 08/15/22 08/28/22 Katrin Orellana PA-C [address] [place] [address] 803285 Assigned Surgical Provider 08/15/22 02/10/24 Cristina Hsieh [facility] [address] [facility] [place] [address] Pharmacist Pharmacist 09/07/22 Alfreda Ray PA-C [address] [place] [address] Assigned Pain Medication Provider 09/05/22 09/10/23 Alfreda Ray PA-C [address] [place] [address] 419372 Assigned PCP 08/29/22 Cristina Hsieh, [facility] [address] [place] [address] Assigned MTM Pharmacist 09/26/22 Dakota Tatum MD [address] [place] [address] 284705 Cardiovascular Disease 03/25/23 Dakota Tatum MD [address] [place] [address] Assigned Heart and Vascular Provider 05/01/23 [place] [address] [place] , [address] [address] Assigned Musculoskeletal Provider 04/12/24 documented as of this encounter
--- OUTSIDE RECORDS SUMMARY | 2024-06-22 23:16 | XMS_ITS | Encounter Summary ---
Author Organization [facility] Address [address] [place] [address] Care Team Providers Care Cook Relief Name Role Phone Esperanza Gatica MD Primary Care Provider + Esperanza Gatica MD Unavailable +[phone] Esperanza Gatica MD Unavailable +[phone] Esperanza Gatica MD Unavailable +[phone] Esperanza Gatica MD Unavailable +[phone] Esperanza Gatica MD Unavailable +[phone] Esperanza Gatica MD Unavailable +[phone] Jesús Orourke MD Unavailable Alfreda RayC Primary Care Provider + Alfreda Ray PA-C Unavailable + [phone] Katrin Orellana PA-C Unavailable +[phone] Shanna VangC Unavailable +[phone] Fransisco Eddy MD Unavailable [phone] Esperanza Gatica MD Unavailable +[phone] Esperanza Gatica MD Unavailable +[phone] Katrin Orellana PA-C Unavailable Cristina Hsieh [facility] Unavailable +[phone] Cory Alfreda Liu PA-C Unavailable +[phone] Alfreda Ray Alexa KING Unavailable +[phone] Cristina Hsieh [facility] Unavailable Dakota Tatum MD Unavailable Dakota Tatum MD Unavailable Srinivas Marie DO Unavailable [phone] Reason for Visit * Reason Onset Date Comments Refill Request 10/23/2012 Zocor 20mg Encounter Details Date Type Department Care Team (Late st Contact Info) Description 10/23/2012 MyC Refill M [address], [facility] 100 [place] [address] [place] [address] [place] [address] Refill Request (Zocor 20mg) Social History Tobacco Use Types Packs/Day Years Used Date Smoking Tobacco: Former Cigarettes Q uit: 06/21/1973 Smokeless Tobacco: Former Alcohol Use Standard Drinks/Week Comments Yes 0 (1 standard drink = 0.6 oz pur e alcohol) rarely Comments No Sex and Gender Information Value Date Recorded Sex Assigned at Female 08/17/2018 7:56 AM DOCUMENTATION CONSULTANT Legal Sex Female 4:24 AM DOCUMENTATION CONSULTANT Gender Identity Female 08/17/2018 7:56 AM DOCUMENTATION CONSULTANT Sexual Orientation Straight 08/17/2018 7: 56 AM DOCUMENTATION CONSULTANT documented as of this encounter Miscellaneous Notes * Telephone Encounter - Leigha Rinaldi - 10/24/2012 7:45 AM CDT Last Office Visit R/T Diagnosis: 06/23/2012 CHOL 137 06/23/2012 HDL 40 06/23/2012 LDL 66 06/23/2012 TRIG 157 06/23/2012 CHOLHDLRATIO 3.4 06/23/2012 ALT 27 06/23/2012 AST 19 06/23/2012 STATINS Crestor, Lescol, Lipitor, Livalo, Mevacor, Pravachol, Zocor OV: 12 mths Tests: Annual-FLP and ALTor AST Every 6 mths-not at FLP goal Repeat FLP and ALt or AST 6-8 wks after dosage change Max refills: 12 mths if LDL at goal 6mths if LDL not at goal (or review last OV for treatment goals) May refill until date of future order of scheduled May substitute via therapeutic comparison chart: [facility] CoA REDUCTASE INHIBITORS (STATINS) Medication approved per standing orders. Leigha Rinaldi RN * Telephone Encounter - Leigha Rinaldi - 10/24/2012 7:44 AM CDTMessage from [employer]: Original authorizing provider: MD Alexandria Brannon would like a refill of the following medications: simvastatin (ZOCOR) 20 MG tablet [Esperanza Gatica MD] Preferred pharmacy: [id number] Comment: Sent from Wideo documented in this encounter Plan of Treatment Upcoming Encounters Date Type Department Care Team (Late st Contact Info) Description 09/07/2024 10:00 AM CDT Office Visit [facility] [address] [phone] Fransisco Eddy MD [address] [place] [address] 660315 03/29/2025 3:40 PM CDT Office Visit [address] [phone] Alfreda Ray PA-C [address] [place] [address] 971882 documented as of this encounter Visit Diagnoses Diagnosis Hyperlipidemia LDL goal <160- Primary Other and unspecified hyperlipidemia documented in this encounter Additional Health Concerns Infection Onset Date Last Indicated Resolved Time Rule Out COVID-19 05/08/2021 05/08/2021 05/09/2021 9:08 PM DOCUMENTATION CONSULTANT documented as of this encounter Care Teams Cook Relief Relationship Specialty Start Date End Date Esperanza Gatica MD PCP - General Family Practice 10/13/11 12/29/21 [place] [address] [place] [address] PCP - Assigned PCP 12/05/17 08/23/18 Alfreda Ray PA-C [address] [place] [address] PCP - General Family Medicine 12/30/21 [place] [address] [place] [address] Assigned PCP 12/05/17 09/30/19 [place] [address] [place] [address] Assigned PCP 10/01/19 03/02/20 [place] [address] [place] [address] Assigned PCP 03/03/20 05/25/20 [place] [address] [place] [address] Assigned PCP 05/26/20 09/28/20 [place] [address] [place] [address] Assigned PCP 09/29/20 07/31/22 Jesú[place] [address] [place] [address] Assigned Musculoskeletal Provider 10/20/20 04/17/22 Alfreda Ray PA-C [address] [place] [address] 539682 Referring Physician Family Medicine 12/31/21 Katrin Orellana PA-C [address] [place] [address] 876805 Physician Intelligence Specialist Dermatology 12/31/21 Shanna Vang PA-C [address] 484144 Assigned Cancer Care Provider 01/10/22 Fransisco Eddy MD [address] [place] [address] 863245 Assigned Rheumatology Provider 05/09/22 [place] [address] [address] [place] [address] Assigned Pain Medication Provider 06/29/22 09/04/22 [place] [address] [place] [place] [address] Assigned PCP 08/15/22 08/28/22 Katrin Orellana PA-C [address] [facility] 98 [place] [address] Assigned Surgical Provider 08/15/22 02/10/24 Cristina Hsieh [facility] [address] [facility] [place] [address] Pharmacist Pharmacist 09/07/22 Alfreda Ray PA-C [address] [place] [address] 002432 Assigned Pain Medication Provider 09/05/22 09/10/23 Alfreda Ray PA-C [address] [place] [address] 011332 Assigned PCP 08/29/22 Cristina Hsieh [facility] [address] [address] Assigned MTM Pharmacist 09/26/22 Dakota Tatum MD [address] [place] [address]28 Cardiovascular Disease 03/25/23 Dakota Tatum MD [address] [place] [address] Assigned Heart and Vascular Provider 05/01/23 [place] [address] [address] , [facility] 300 [place] [address] Assigned Musculoskeletal Provider 04/12/24 documented as of this encounter
--- OUTSIDE RECORDS SUMMARY | 2024-06-22 23:16 | XMS_ITS | Encounter Summary ---
Author Organization [facility] Address [address] [place] [address] Care Team Providers Care Instructor Weaving Name Role Phone Alfa Marcelo MD Primary Care Provider Ajay Dailey MD Primary Care Provider [phone] Esperanza Gatica MD Primary Care Provider Esperanza Gatica MD Unavailable +[phone] Esperanza Gatica MD Unavailable +[phone] Esperanza Gatica MD Unavailable +[phone] Esperanza Gatica MD Unavailable +[phone] Esperanza Gatica MD Unavailable +[phone] Esperanza Gatica MD Unavailable +[phone] Jesús Orourke MD Unavailable Alfreda Ray PA-C Primary Care Provider + Alfreda RayC Unavailable +[phone] Katrin OrellanaC Unavailable Shanna Vang-C Unavailable +[phone] Fransisco Eddy MD Unavailable +[phone] Esperanza Gatica MD Unavailable +[phone] Esperanza Gatica MD Unavailable +[phone] Katrin OrellanaC Unavailable Cristina Hsieh [facility] Unavailable [phone] Cory Alfreda Liu PA-C Unavailable +[phone] Cory Alfreda Liu PA-C Unavailable +[phone] Cristina Hsieh [facility] Unavailable [phone] Dakota Tatum MD Unavailable +[phone] Dakota Tatum MD Unavailable +[phone] Srinivas Marie DO Unavailable [phone] Reason for Visit * Reason Onset Date Comments MyChart Communication 10/09/2010 Encounter Details Date Type Department Care Team (Late st Contact Info) Description 10/09/2010 MyC Medical [address] [phone] Alfa Marcelo MD [facility] [address] [facility] 200 [place] [address] MyChart Communication Social History Tobacco Use Types Packs/Day Years Used Date Smoking Tobacco: Former Cigarettes Q uit: 06/21/1973 Alcohol Use Standard Drinks/Week Comments Yes 0 (1 standard drink = 0.6 oz pur e alcohol) rarely Comments No Sex and Gender Information Value Date Recorded Sex Assigned at Female 08/17/2018 7:56 AM HAMMER SETTER Legal Sex Female 4:24 AM HAMMER SETTER Gender Identity Female 08/17/2018 7:56 AM HAMMER SETTER Sexual Orientation Straight 08/17/2018 7: 56 AM HAMMER SETTER documented as of this encounter Miscellaneous Notes * Telephone Encounter - Fartun Mayes - 10/09/2010 10:17 AM CDT Please see Orbeushart msg and advise. Thank you. documented in this encounter Plan of Treatment Upcoming Encounters Date Type Department Care Team (Late st Contact Info) Description 09/07/2024 10:00 AM CDT Office Visit [facility] [address] [place] [phone] Fransisco Eddy MD [address] [place] [address] 060345 03/29/2025 3:40 PM CDT Office Visit [address] [phone] Alfreda Ray PA-C [address] [place] [address] [phone] documented as of this encounter Visit Diagnoses Not on filedocumented in this encounter Additional Health Concerns Infection Onset Date Last Indicated Resolved Time Rule Out COVID-19 05/08/2021 05/08/2021 05/09/2021 9:08 PM HAMMER SETTER documented as of this encounter Care Teams Instructor Weaving Relationship Specialty Start Date End Date Alfa Marcelo MD [address] [address] PCP - General 01/22/04 01/28/11 Ajay Dailey MD [address] [address] PCP - General Family Practice 01/29/11 10/12/11 Esperanza Gatica MD [facility] [address] [place] [address] [address] PCP - General Family Practice 10/13/11 12/29/21 [place] [address] [place] [address] PCP - Assigned PCP 12/05/17 08/23/18 Alfreda Ray PA-C [address] [place] [address] PCP - General Family Medicine 12/30/21 [place] [address] [place] [address] Assigned PCP 12/05/17 09/30/19 [place] [address] [place] [address] Assigned PCP 10/01/19 03/02/20 [place] [address] [place] [address] Assigned PCP 03/03/20 05/25/20 [place] [address] [place] [address] Assigned PCP 05/26/20 09/28/20 [place] [address] [place] [address] Assigned PCP 09/29/20 07/31/22 Jesú[place] [address] [place] [address] Assigned Musculoskeletal Provider 10/20/20 04/17/22 Alfreda Ray PA-C [address] [place] [address] Referring Physician Family Medicine 12/31/21 Katrin Orellana PA-C [address] [place] [address] Physician Belt Dresser Dermatology 12/31/21 Shanna Vang PA-C [address] [place] [address] 790634 Assigned Cancer Care Provider 01/10/22 Fransisco Eddy MD [address] [place] [address] 384105 Assigned Rheumatology Provider 05/09/22 [place] [address] [address] [address] Assigned Pain Medication Provider 06/29/22 09/04/22 [place] [address] [place] [address] Assigned PCP 08/15/22 08/28/22 Katrin Orellana PA-C [address] [place] [address] 764035 Assigned Surgical Provider 08/15/22 02/10/24 Cristina Hsieh, [facility] [address] [facility] [place] [address] Pharmacist Pharmacist 09/07/22 Alfreda Ray PA-C [address] [place] [address] Assigned Pain Medication Provider 09/05/22 09/10/23 Alfreda Ray PA-C [address] [place] [address] Assigned PCP 08/29/22 Cristina Hsieh, [facility] [address] [address] Assigned MTM Pharmacist 09/26/22 Dakota Tatum MD [address] [place] [address] Cardiovascular Disease 03/25/23 Dakota Tatum MD [address] [place] [address] Assigned Heart and Vascular Provider 05/01/23 [place] [address] [facility], [address] [address] Assigned Musculoskeletal Provider 04/12/24 documented as of this encounter
--- OUTSIDE RECORDS SUMMARY | 2024-06-22 23:16 | XMS_ITS | Encounter Summary ---
Author Organization [place] Address [address] [place] [address] Care Team Providers Care Casing Machine Operator Name Role Phone Esperanza Gatica MD Primary Care Provider + Esperanza Gatica MD Unavailable +[phone] Esperanza Gatica MD Unavailable +[phone] Esperanza Gatica MD Unavailable +[phone] Esperanza Gatica MD Unavailable +[phone] Esperanza Gatica MD Unavailable +[phone] Esperanza Gatica MD Unavailable +[phone] Jesús Orourke MD Unavailable Alfreda RayC Primary Care Provider + Alfreda Ray PA-C Unavailable + [phone] Katrin Orellana PA-C Unavailable +[phone] Shanna VangC Unavailable +[phone] Fransisco Eddy MD Unavailable +[phone] Esperanza Gatica MD Unavailable +[phone] Esperanza Gatica MD Unavailable +[phone] Katrin Orellana PA-C Unavailable Cristina Hsieh [facility] Unavailable Cory Alfreda Liu PA-C Unavailable Alfreda Ray Alexa KING Unavailable [phone] Cristina Hsieh [facility] Unavailable Dakota Tatum MD Unavailable Dakota Tatum MD Unavailable Srinivas Marie DO Unavailable [phone] Reason for Visit * Reason Onset Date Comments Refill Request 11/06/2011 Tramadol Encounter Details Date Type Department Care Team (Late st Contact Info) Description 11/06/2011 MyC Refill [address] [phone] Ajay Vick MD [address] [facility] LISBETH HERNANDEZ [phone] Refill Request (Tramadol) Social History Tobacco Use Types Packs/Day Years Used Date Smoking Tobacco: Former Cigarettes Q uit: 06/21/1973 Smokeless Tobacco: Former Alcohol Use Standard Drinks/Week Comments Yes 0 (1 standard drink = 0.6 oz pur e alcohol) rarely Comments No Sex and Gender Information Value Date Recorded Sex Assigned at Female 08/17/2018 7:56 AM ALARM INSTALLATION TECHNICIAN Legal Sex Female 4:24 AM ALARM INSTALLATION TECHNICIAN Gender Identity Female 08/17/2018 7:56 AM ALARM INSTALLATION TECHNICIAN Sexual Orientation Straight 08/17/2018 7: 56 AM ALARM INSTALLATION TECHNICIAN documented as of this encounter Miscellaneous Notes * Telephone Encounter - Leigha Rinaldi - 11/09/2011 1:16 PM CDTMessage from MyChart: Original authorizing provider: AJAY VICK MD Barbara J Pellicci would like a refill of the following medications: traMADol (ULTRAM) 50 MG tablet [AJAY VICK MD] Preferred pharmacy: [facility] Comment: I have switched to Dr. Esperanza Gatica. documented in this encounter Plan of Treatment Upcoming Encounters Date Type Department Care Team (Late st Contact Info) Description 09/07/2024 10:00 AM CDT Office Visit [facility] [address] [place]ER [phone] Fransisco Eddy MD [address] [place] [address] 03/29/2025 3:40 PM CDT Office Visit [address] [phone] Alfreda Ray PA-C [address] [place] [address] [phone] documented as of this encounter Visit Diagnoses Diagnosis Knee pain Pain in joint, lower leg documented in this encounter Additional Health Concerns Infection Onset Date Last Indicated Resolved Time Rule Out COVID-19 05/08/2021 05/08/2021 05/09/2021 9:08 PM ALARM INSTALLATION TECHNICIAN documented as of this encounter Care Teams Casing Machine Operator Relationship Specialty Start Date End Date Esperanza Gatica MD PCP - General Family Practice 10/13/11 12/29/21 [place] [address] [place] GARCIA [address] PCP - Assigned PCP 12/05/17 08/23/18 Alfreda Ray PA-C [address] [place] [address] 25846 PCP - General Family Medicine 12/30/21 [place] [address] [place] [place]ARCIA [address]92 Assigned PCP 12/05/17 09/30/19 [place] [address] [place] [address] Assigned PCP 10/01/19 03/02/20 [place] [address] [place] [address] Assigned PCP 03/03/20 05/25/20 [place] [address] [place] [address] Assigned PCP 05/26/20 09/28/20 [place] [address] [place] [address] Assigned PCP 09/29/20 07/31/22 Jesú[place] [address] [place] [address] [address] Assigned Musculoskeletal Provider 10/20/20 04/17/22 Alfreda Ray PA-C [address] [place] [address] 279292 Referring Physician Family Medicine 12/31/21 Katrin Orellana PA-C [address] [place] [address] 967245 Physician Strategic Sourcing Specialist Dermatology 12/31/21 Shanna Vang PA-C [address] [place] [address] 8[address]96 Assigned Cancer Care Provider 01/10/22 Fransisco Eddy MD [address] [place] [address] 88 [place] [address] Assigned Rheumatology Provider 05/09/22 [place] [address] [place] [address] Assigned Pain Medication Provider 06/29/22 09/04/22 [place] [address] [place] [address] Assigned PCP 08/15/22 08/28/22 Katrin Orellana PA-C [address] [place] [address] 95945 Assigned Surgical Provider 08/15/22 02/10/24 Cristina Hsieh [facility] [address] [place] [address] [place] [address] Pharmacist Pharmacist 09/07/22 Alfreda Ray PA-C [address] [place] [address] 18570 Assigned Pain Medication Provider 09/05/22 09/10/23 Alfreda Ray PA-C [address] [place] [address] 89209 Assigned PCP 08/29/22 Cristina Hsieh [facility] [address] [address] Assigned MTM Pharmacist 09/26/22 Dakota Tatum MD [address] [place] [address]38 Cardiovascular Disease 03/25/23 Dakota Tatum MD [address] [place] [address] 07179 Assigned Heart and Vascular Provider 05/01/23 [place] [address] [address], [facility] [address] [place] [address] Assigned Musculoskeletal Provider 04/12/24 documented as of this encounter
--- OUTSIDE RECORDS SUMMARY | 2024-06-22 23:16 | XMS_ITS | Encounter Summary ---
Author Organization [place] Address [address] [place] [address] Care Team Providers Care Education Rn Name Role Phone Esperanza Gatica MD Primary Care Provider + Esperanza Gatica MD Unavailable +[phone] Esperanza Gatica MD Unavailable +[phone] Esperanza Gatica MD Unavailable +[phone] Esperanza Gatica MD Unavailable +[phone] Esperanza Gatica MD Unavailable +[phone] Esperanza Gatica MD Unavailable +[phone] Jesús Orourke MD Unavailable Alfreda RayC Primary Care Provider + Alfreda Ray PA-C Unavailable + [phone] Katrin Orellana PA-C Unavailable [phone] Shanna VangC Unavailable +[phone] Fransisco Eddy MD Unavailable [phone] Esperanza Gatica MD Unavailable +[phone] Esperanza Gatica MD Unavailable +[phone] Katrin Orellana PA-C Unavailable Cristina Hsieh [facility] Unavailable Alfreda Ray Alexa KING Unavailable +[phone] Alfreda Ray Alexa KING Unavailable +[phone] Cristina Hsieh [facility] Unavailable [phone] Dakota Tatum MD Unavailable [phone] Dakota Tatum MD Unavailable [phone] Srinivas Marie DO Unavailable [phone] Reason for Visit * Reason Onset Date Comments Refill Request 01/14/2013 vicodin Encounter Details Date Type Department Care Team (Late st Contact Info) Description 01/14/2013 MyC Refill M [address], [address] [place] [address] [place] [address] [place] [address] Refill Request (vicodin) Social History Tobacco Use Types Packs/Day Years Used Date Smoking Tobacco: Former Cigarettes Q uit: 06/21/1973 Smokeless Tobacco: Former Alcohol Use Standard Drinks/Week Comments Yes 0 (1 standard drink = 0.6 oz pur e alcohol) rarely Comments No Sex and Gender Information Value Date Recorded Sex Assigned at Female 08/17/2018 7:56 AM BUTT SAWYER Legal Sex Female 4:24 AM BUTT SAWYER Gender Identity Female 08/17/2018 7:56 AM BUTT SAWYER Sexual Orientation Straight 08/17/2018 7: 56 AM BUTT SAWYER documented as of this encounter Miscellaneous Notes * Telephone Encounter - Lisa Harper - 01/16/2013 11:07 AM CDT Date of last OV: 11/08/12 Reason for visit: osteoarthritis, sleep issue, elevated glucose Date last filled: per epic 11/08/12 #90 Labs pertaining to med: none, Unable to approve per standing orders, routed to provider. Lisa Harper RN * Telephone Encounter - Lisa Harper - 01/16/2013 11:06 AM CD[facility] Original authorizing provider: MD Alexandria Brannon would like a refill of the following medications: HYDROcodone-acetaminophen (VICODIN) 5-500 MG per tablet [Esperanza Gatica MD] Preferred pharmacy: [facility] [address] [place] [address] Comment: Sent from my iPad documented in this encounter Plan of Treatment Upcoming Encounters Date Type Department Care Team (Late st Contact Info) Description 09/07/2024 10:00 AM CDT Office Visit [address] [phone] Fransisco Eddy MD [address] [place] [address] 616945 03/29/2025 3:40 PM CDT Office Visit [address] [phone] Alfreda Ray PA-C [address] [place] [address] [phone] documented as of this encounter Visit Diagnoses Diagnosis Osteoarthritis- Primary Osteoarthrosis, unspecified whether generalized or localized, unspecified site documented in this encounter Additional Health Concerns Infection Onset Date Last Indicated Resolved Time Rule Out COVID-19 05/08/2021 05/08/2021 05/09/2021 9:08 PM BUTT SAWYER documented as of this encounter Care Teams Education Rn Relationship Specialty Start Date End Date Esperanza Gatica MD PCP - General Family Practice 10/13/11 12/29/21 [place] [address] [place] [address] PCP - Assigned PCP 12/05/17 08/23/18 Alfreda Ray PA-C [address] [facility] [place] [address] PCP - General Family Medicine 12/30/21 [place] [address] [place] [address] Assigned PCP 12/05/17 09/30/19 [place] [address] [place] [address] Assigned PCP 10/01/19 03/02/20 [place] [address] [place] [address] Assigned PCP 03/03/20 05/25/20 [place] [address] [place] [address] Assigned PCP 05/26/20 09/28/20 [place] [address] [address] [place] [address] Assigned PCP 09/29/20 07/31/22 [place] [address] [place] [address] Assigned Musculoskeletal Provider 10/20/20 04/17/22 Alfreda Ray PA-C [address] [place] [address] 795842 Referring Physician Family Medicine 12/31/21 Katrin Orellana PA-C [address] [place] [address] 549735 Physician Corporate Trainer Dermatology 12/31/21 Shanna Vang PA-C [address] [place] [address] 964254 Assigned Cancer Care Provider 01/10/22 Fransisco Eddy MD [address] [place] [address] [phone] Assigned Rheumatology Provider 05/09/22 [place] [address] [place] [place] [address] Assigned Pain Medication Provider 06/29/22 09/04/22 [place] [address] [address] [place] [address] Assigned PCP 08/15/22 08/28/22 Katrin Orellana PA-C [address] [place] [address] 729065 Assigned Surgical Provider 08/15/22 02/10/24 Cristina Hsieh [facility] [address] [facility] [place]DEZ [address] Pharmacist Pharmacist 09/07/22 Alfreda Ray PA-C [address] [place] [address] 26914 Assigned Pain Medication Provider 09/05/22 09/10/23 Alfreda Ray PA-C [address] [place] [address] 467[address] Assigned PCP 08/29/22 Cristina Hsieh, [facility] [address] [address] Assigned MTM Pharmacist 09/26/22 Dakota Tatum MD [address] [place] [address] Cardiovascular Disease 03/25/23 Dakota Tatum MD [address] [place] [address] 99843 Assigned Heart and Vascular Provider 05/01/23 [place] [address] [facility] GASTELUM, [address] [address] Assigned Musculoskeletal Provider 04/12/24 documented as of this encounter
--- OUTSIDE RECORDS SUMMARY | 2024-06-22 23:16 | XMS_ITS | Encounter Summary ---
Author Organization [place] Address [address] [place] [address] Care Team Providers Care Rigger Name Role Phone Esperanza Gatica MD Primary Care Provider + Esperanza Gatica MD Unavailable +[phone] Esperanza Gatica MD Unavailable +[phone] Esperanza Gatica MD Unavailable +[phone] Esperanza Gatica MD Unavailable +407 Esperanza Gatica MD Unavailable +404 Esperanza Gatica MD Unavailable +[phone] Jesús Orourke MD Unavailable Alfreda RayC Primary Care Provider + Alfreda Ray PA-C Unavailable + [phone] Katrin Orellana PA-C Unavailable [phone] Shanna VangC Unavailable +[phone] Fransisco Eddy MD Unavailable [phone] Esperanza Gatica MD Unavailable +[phone] Esperanza Gatica MD Unavailable +[phone] Katrin Orellana PA-C Unavailable [phone] Cristina Hsieh [facility] Unavailable Cory Alfreda Liu PA-C Unavailable +[phone] Ho Raymustapha Liu PA-C Unavailable +[phone] Cristina Hsieh [facility] Unavailable Dakota Tatum MD Unavailable [phone] Dakota Tatum MD Unavailable [phone] Srinivas Marie DO Unavailable [phone] Reason for Visit * Reason Onset Date Comments Hip Pain 07/08/2012 Hip pain Encounter Details Date Type Department Care Team (Late st Contact Info) Description 07/08/2012 MyC Medical Advice [address], [address] [place] [address] [place] [address] [place] [address] Hip Pain (Hip pain) Social History Tobacco Use Types Packs/Day Years Used Date Smoking Tobacco: Former Cigarettes Q uit: 06/21/1973 Smokeless Tobacco: Former Alcohol Use Standard Drinks/Week Comments Yes 0 (1 standard drink = 0.6 oz pur e alcohol) rarely Comments No Sex and Gender Information Value Date Recorded Sex Assigned at Female 08/17/2018 7:56 AM L D RN Legal Sex Female 4:24 AM L D RN Gender Identity Female 08/17/2018 7:56 AM L D RN Sexual Orientation Straight 08/17/2018 7: 56 AM L D RN documented as of this encounter Miscellaneous Notes * Telephone Encounter - Esperanza Gatica MD - 07/08/2012 10:42 AM L D RN Ok to take flexeril, faxed and she can take the vicodin, which she was given 90 in May. Is she out?Please make appt for hip pain if not improving L D RN documented in this encounter Plan of Treatment Upcoming Encounters Date Type Department Care Team (Late st Contact Info) Description 09/07/2024 10:00 AM CDT Office Visit [facility] [address] [place] [phone] Fransisco Eddy MD [address] [place] [address] 03/29/2025 3:40 PM CDT Office Visit [address] [phone] Alfreda Ray PA-C [address] [place] [address] 279882 documented as of this encounter Visit Diagnoses Diagnosis Hip pain- Primary Pain in joint, pelvic region and thigh documented in this encounter Additional Health Concerns Infection Onset Date Last Indicated Resolved Time Rule Out COVID-19 05/08/2021 05/08/2021 05/09/2021 9:08 PM L D RN documented as of this encounter Care Teams Rigger Relationship Specialty Start Date End Date Esperanza Gatica MD PCP - General Family Practice 10/13/11 12/29/21 [place] [address] [place] [address] PCP - Assigned PCP 12/05/17 08/23/18 Alfreda Ray PA-C [address] [place] [address] 015752 PCP - General Family Medicine 12/30/21 [place] [address] [address] [place] [address] Assigned PCP 12/05/17 09/30/19 [place] [address] [place] [address] Assigned PCP 10/01/19 03/02/20 [place] [address] [place] [address] Assigned PCP 03/03/20 05/25/20 [place] [address] [address] [place] [address] Assigned PCP 05/26/20 09/28/20 [place] [address] [place] [address] Assigned PCP 09/29/20 07/31/22 [place] [address] [address] Assigned Musculoskeletal Provider 10/20/20 04/17/22 Alfreda Ray PA-C [address] [place] [address] 093822 Referring Physician Family Medicine 12/31/21 Katrin Orellana PA-C [address] [place] [address]309 Physician Employment Training Specialist Dermatology 12/31/21 Shanna Vang PA-C [address] [place] [address] 98181 Assigned Cancer Care Provider 01/10/22 Fransisco Eddy MD [address] [place] [address] Assigned Rheumatology Provider 05/09/22 [place] [address] [place] [address] Assigned Pain Medication Provider 06/29/22 09/04/22 [place] [address] [place] [address] Assigned PCP 08/15/22 08/28/22 Katrin Orellana PA-C [address] [place] [address] 60431 Assigned Surgical Provider 08/15/22 02/10/24 Cristina Hsieh [place] [address] [facility] [place]ETH [place]Z [address] Pharmacist Pharmacist 09/07/22 Alfreda Ray PA-C [address] [place] [address] 50317 Assigned Pain Medication Provider 09/05/22 09/10/23 Alfreda Ray PA-C [address] [place] [address] 25286 Assigned PCP 08/29/22 Cristina Hsieh [facility] [address] [address] Assigned MTM Pharmacist 09/26/22 Dakota Tatum MD [address] [place] [address] 00614 Cardiovascular Disease 03/25/23 Dakota Tatum MD [address] [place] [address] Assigned Heart and Vascular Provider 05/01/23 [place] [address] [address]AST[address], [address] [address] Assigned Musculoskeletal Provider 04/12/24 documented as of this encounter
--- OUTSIDE RECORDS SUMMARY | 2024-06-22 23:16 | XMS_ITS | Encounter Summary ---
Author Organization [place] Address [address] [place] [address] Care Team Providers Care Assembler Final Name Role Phone Esperanza Gatica MD Primary Care Provider + Esperanza Gatica MD Unavailable +[phone] Esperanza Gatica MD Unavailable +[phone] Esperanza Gatica MD Unavailable +461 Esperanza Gatica MD Unavailable +656 Esperanza Gatica MD Unavailable +062 Esperanza Gatica MD Unavailable +[phone] Jesús Orourke MD Unavailable Alfreda RayC Primary Care Provider + Alfreda Ray PA-C Unavailable + [phone] Katrin Orellana PA-C Unavailable +[phone] Shanna VangC Unavailable +[phone] Fransisco Eddy MD Unavailable +[phone] Esperanza Gatica MD Unavailable +[phone] Esperanza Gatica MD Unavailable +[phone] Katrin Orellana PA-C Unavailable Cristina Hsieh [facility] Unavailable Alfreda Ray PA-C Unavailable Alfreda Ray PA-C Unavailable [phone] Cristina Hsieh [facility] Unavailable Dakota Tatum MD Unavailable Dakota Tatum MD Unavailable Srinivas Marie DO Unavailable [phone] Encounter Details Date Type Department Care Team (Late st Contact Info) Description 06/22/2012 MyC Medical Advice [address], [facility] [address] [place] [address] [facility] Social History Tobacco Use Types Packs/Day Years Used Date Smoking Tobacco: Former Cigarettes Q uit: 06/21/1973 Smokeless Tobacco: Former Alcohol Use Standard Drinks/Week Comments Yes 0 (1 standard drink = 0.6 oz pur e alcohol) rarely Comments No Sex and Gender Information Value Date Recorded Sex Assigned at Female 08/17/2018 7:56 AM SQL DEVELOPER DBA Legal Sex Female 4:24 AM SQL DEVELOPER DBA Gender Identity Female 08/17/2018 7:56 AM SQL DEVELOPER DBA Sexual Orientation Straight 08/17/2018 7: 56 AM SQL DEVELOPER DBA documented as of this encounter Plan of Treatment Upcoming Encounters Date Type Department Care Team (Late st Contact Info) Description 09/07/2024 10:00 AM CDT Office Visit [facility] [address] [phone] Fransisco Eddy MD [address] [place] [address] 03/29/2025 3:40 PM CDT Office Visit [address] [phone] Alfreda Ray PA-C [address] [place] [address] documented as of this encounter Visit Diagnoses Not on filedocumented in this encounter Additional Health Concerns Infection Onset Date Last Indicated Resolved Time Rule Out COVID-19 05/08/2021 05/08/2021 05/09/2021 9:08 PM SQL DEVELOPER DBA documented as of this encounter Care Teams Assembler Final Relationship Specialty Start Date End Date Esperanza Gatica MD PCP - General Family Practice 10/13/11 12/29/21 [place] [address] [address] [place] [address] PCP - Assigned PCP 12/05/17 08/23/18 Alfreda Ray PA-C [address] [place] [address] PCP - General Family Medicine 12/30/21 [place] [address] [address] [address] Assigned PCP 12/05/17 09/30/19 [place] [address] [address] [place] [address] Assigned PCP 10/01/19 03/02/20 [place] [address] [address] [place] [address] Assigned PCP 03/03/20 05/25/20 [place] [address] [address] [address] Assigned PCP 05/26/20 09/28/20 [place] [address] [place] [address] Assigned PCP 09/29/20 07/31/22 Jesú[place] [address] [place] [address] [place] [address] Assigned Musculoskeletal Provider 10/20/20 04/17/22 Alfreda Ray PA-C [address] [place] [address] Referring Physician Family Medicine 12/31/21 Katrin Orellana PA-C [address] [place] [address] Physician Manager Fiber Dermatology 12/31/21 Shanna Vang PA-C [address] [address] Assigned Cancer Care Provider 01/10/22 Fransisco Eddy MD [address] [place] [address] Assigned Rheumatology Provider 05/09/22 [place] [address] [place] [address] Assigned Pain Medication Provider 06/29/22 09/04/22 [place] [address] [place] [address] Assigned PCP 08/15/22 08/28/22 Katrin Orellana PA-C [address] [place] [address] 13750 Assigned Surgical Provider 08/15/22 02/10/24 Cristina Hsieh [facility] [address] [place] [address] L[place] HERNANDEZ [address] Pharmacist Pharmacist 09/07/22 Alfreda Ray PA-C [address] [place] [address] 335832 Assigned Pain Medication Provider 09/05/22 09/10/23 Alfreda Ray PA-C [address] [place] [address] 625742 Assigned PCP 08/29/22 Cristina Hsieh [facility] [address] [place] [address] Assigned MTM Pharmacist 09/26/22 Dakota Tatum MD [address] [place] [address] Cardiovascular Disease 03/25/23 Dakota Tatum MD [address] [place] [address] 62487 Assigned Heart and Vascular Provider 05/01/23 [place] [address] [address] Assigned Musculoskeletal Provider 04/12/24 documented as of this encounter
--- OUTSIDE RECORDS SUMMARY | 2024-06-22 23:16 | XMS_ITS | Encounter Summary ---
Author Organization [place] Address [address] [place] [address] Care Team Providers Care Airplane Dispatcher Name Role Phone Ajay Dailey MD Primary Care Provider [phone] Esperanza Gatica MD Primary Care Provider + Esperanza Gatica MD Unavailable + Esperanza Gatica MD Unavailable + Esperanza Gatica MD Unavailable + Esperanza Gatica MD Unavailable + Esperanza Gatica MD Unavailable + Esperanza Gatica MD Unavailable +[phone] Jesús Orourke MD Unavailable Alfreda RayC Primary Care Provider + Alfreda Ray-Gallito Unavailable +[phone] Katrin Orellana PA-C Unavailable Shanna Vang-C Unavailable +[phone] Fransisco Eddy MD Unavailable +[phone] Esperanza Gatica MD Unavailable +[phone] Esperanza Gatica MD Unavailable +[phone] Katrin Orellana PA-C Unavailable +[phone] Cristina Hsieh [facility] Unavailable +[phone] Cory Alfreda Liu PA-C Unavailable + [phone] Cory Alfreda Liu PA-C Unavailable +[phone] Cristina Hsieh [facility] Unavailable +[phone] Dakota Tatum MD Unavailable +[phone] Dakota Tatum MD Unavailable +[phone] Srinivas Marie DO Unavailable +[phone] Reason for Visit * Reason Onset Date Comments Refill Request 02/26/2011 Encounter Details Date Type Department Care Team (Late st Contact Info) Description 02/26/[address] [address] Alfa Marcelo MD [facility] [address] [facility] [address] [place] [address] Refill Request Social History Tobacco Use Types Packs/Day Years Used Date Smoking Tobacco: Former Cigarettes Q uit: 06/21/1973 Smokeless Tobacco: Never Alcohol Use Standard Drinks/Week Comments Yes 0 (1 standard drink = 0.6 oz pur e alcohol) rarely Comments No Sex and Gender Information Value Date Recorded Sex Assigned at Female 08/17/2018 7:56 AM STATION ENGINEER MAIN LINE Legal Sex Female 4:24 AM STATION ENGINEER MAIN LINE Gender Identity Female 08/17/2018 7:56 AM STATION ENGINEER MAIN LINE Sexual Orientation Straight 08/17/2018 7: 56 AM STATION ENGINEER MAIN LINE documented as of this encounter Miscellaneous Notes * Telephone Encounter - Selin Magi - 02/26/2011 3:04 PM CDTMessage from [place]: Original authorizing provider: Alfa Bradshaw would like a refill of the following medications: tramadol (ULTRAM) 50 MG tablet [Alfa Marcelo MD] Preferred pharmacy: [facility] Filemon YANEZ Comment: Please note [address] Marcelo documented in this encounter Plan of Treatment Upcoming Encounters Date Type Department Care Team (Late st Contact Info) Description 09/07/2024 10:00 AM CDT Office Visit [facility] [place] [address] [place] [address] [address] [place] [phone] Fransisoc Eddy MD [address] [place] [address] 03/29/2025 3:40 PM CDT Office Visit [address] [phone] Alfreda Ray PA-C [address] [place] [address] 245062 documented as of this encounter Visit Diagnoses Diagnosis DJD (degenerative joint disease) of knee Osteoarthrosis, unspecified whether generalized or localized, lower leg documented in this encounter Additional Health Concerns Infection Onset Date Last Indicated Resolved Time Rule Out COVID-19 05/08/2021 05/08/2021 05/09/2021 9:08 PM STATION ENGINEER MAIN LINE documented as of this encounter Care Teams Airplane Dispatcher Relationship Specialty Start Date End Date Ajay Dailey MD PCP - General Family Practice 01/29/11 10/12/11 Esperanza Gatica MD PCP - General Family Practice 10/13/11 12/29/21 [place] [address] [place] [address] PCP - Assigned PCP 12/05/17 08/23/18 Alfreda Ray PA-C [address] [place] [address] PCP - General Family Medicine 12/30/21 [place] [address] [place] [address] Assigned PCP 12/05/17 09/30/19 [place] [address] [place] [address] Assigned PCP 10/01/19 03/02/20 [place] [address] [place] [address] Assigned PCP 03/03/20 05/25/20 [place] [address] [place] [address] Assigned PCP 05/26/20 09/28/20 [place] [address] [place] [address] Assigned PCP 09/29/20 07/31/22 [place] [address] [place] [address] Assigned Musculoskeletal Provider 10/20/20 04/17/22 Alfreda Ray PA-C [address] [place] [address] Referring Physician Family Medicine 12/31/21 Katrin Orellana PA-C [address] [address] Physician Insurance Clerk Dermatology 12/31/21 Shanna Vang PA-C [address] [place] [address] 259834 Assigned Cancer Care Provider 01/10/22 Fransisco Eddy MD [address] [place] [address] 599875 Assigned Rheumatology Provider 05/09/22 [place] [address] [place] [address] Assigned Pain Medication Provider 06/29/22 09/04/22 [place] [address] [place] [address] Assigned PCP 08/15/22 08/28/22 Katrin Orellana PA-C [address] [place] [address] 500155 Assigned Surgical Provider 08/15/22 02/10/24 Cristina Hsieh [facility] [address] [facility] [place]NDEZ [address] Pharmacist Pharmacist 09/07/22 Alfreda Ray PA-C [address] [place] [address] Assigned Pain Medication Provider 09/05/22 09/10/23 Alfreda Ray PA-C [address] [place] [address] 764882 Assigned PCP 08/29/22 Cristina Hsieh, [facility] [address] [place] [address] Assigned MTM Pharmacist 09/26/22 Dakota Tatum MD [address] [place] [address] 875205 Cardiovascular Disease 03/25/23 Dakota Tatum MD [address] [place] [address] Assigned Heart and Vascular Provider 05/01/23 [place] [address] [address], [address] [address] Assigned Musculoskeletal Provider 04/12/24 documented as of this encounter
--- OUTSIDE RECORDS SUMMARY | 2024-06-22 23:16 | XMS_ITS | Encounter Summary ---
Author Organization [place] Address [address] [place] [address] Care Team Providers Care Reinforcing Steel Machine Operator Name Role Phone Esperanza Gatica MD Primary Care Provider + Esperanza Gatica MD Unavailable +[phone] Esperanza Gatica MD Unavailable +[phone] Esperanza Gatica MD Unavailable +[phone] Esperanza Gatica MD Unavailable +[phone] Esperanza Gatica MD Unavailable +[phone] Esperanza Gatica MD Unavailable +[phone] Jesús Orourke MD Unavailable Alfreda RayC Primary Care Provider + Alfreda Ray PA-C Unavailable + [phone] Katrin Orellana PA-C Unavailable +[phone] Shanna VangC Unavailable +[phone] Fransisco Eddy MD Unavailable [phone] Esperanza Gatica MD Unavailable +[phone] Esperanza Gatica MD Unavailable +[phone] Katrin Orellana PA-C Unavailable [phone] Cristina Hsieh [facility] Unavailable Alfreda Ray Alexa KING Unavailable +[phone] Alfreda Ray Alexa KING Unavailable +[phone] Cristina Hsieh [facility] Unavailable +[phone] Dakota Tatum MD Unavailable Dakota Tatum MD Unavailable [phone] Srinivas Marie DO Unavailable [phone] Reason for Visit * Reason Onset Date Comments Refill Request 10/28/2012 Bryant Bazzi l Encounter Details Date Type Department Care Team (Late st Contact Info) Description 10/28/2012 MyC Refill M [address], [address] [place] [address] [place] [address] [place] [address] Refill Request (Vicodin, Tramadol) Social History Tobacco Use Types Packs/Day Years Used Date Smoking Tobacco: Former Cigarettes Q uit: 06/21/1973 Smokeless Tobacco: Former Alcohol Use Standard Drinks/Week Comments Yes 0 (1 standard drink = 0.6 oz pur e alcohol) rarely Comments No Sex and Gender Information Value Date Recorded Sex Assigned at Female 08/17/2018 7:56 AM CHEMISTRY ACCOUNT MANAGER Legal Sex Female 4:24 AM CHEMISTRY ACCOUNT MANAGER Gender Identity Female 08/17/2018 7:56 AM CHEMISTRY ACCOUNT MANAGER Sexual Orientation Straight 08/17/2018 7: 56 AM CHEMISTRY ACCOUNT MANAGER documented as of this encounter Miscellaneous Notes * Telephone Encounter - Leigha Rinaldi - 10/28/2012 11:27 AM CDT [employer] Limited[employer]ictor[employer] message sent to patient. Leigha Rinaldi RN * Telephone Encounter - Esperanza Gatica MD - 10/28/2012 11:14 AM CDT I need to see her every 6 months, which would be next month, will refill for this month only * Telephone Encounter - Leigha Rinaldi - 10/28/2012 10:36 AM CDT Med: Vicodin, Tramadol Last OV: 06/23/2012 Reason: Insomnia Last filled: Vicodin: 08/09/2012 #90 Tramadol: 09/22/2012 #30 Leigha Rinaldi RN * Telephone Encounter - Leigha Rinaldi - 10/28/2012 10:36 AM [facility] Original authorizing provider: Esperanza Gatica MD Alexandria Fregoso Leeann would like a refill of the following medications: HYDROcodone-acetaminophen (VICODIN) 5-500 MG per tablet [Esperanza Gatica MD] Preferred pharmacy: [id number] Comment: Medication renewals requested in this message routed to other providers: traMADol (ULTRAM) 50 MG tablet [Royer Brumfield MD, MD] documented in this encounter Plan of Treatment Upcoming Encounters Date Type Department Care Team (Late st Contact Info) Description 09/07/2024 10:00 AM CDT Office Visit [facility] [address] [phone] Fransisco Eddy MD [address] [place] [address] 599145 03/29/2025 3:40 PM CDT Office Visit [address] [phone] Alfreda Ray PA-C [address] [place] [address] 702032 documented as of this encounter Visit Diagnoses Diagnosis Osteoarthritis- Primary Osteoarthrosis, unspecified whether generalized or localized, unspecified site Knee pain Pain in joint, lower leg documented in this encounter Additional Health Concerns Infection Onset Date Last Indicated Resolved Time Rule Out COVID-19 05/08/2021 05/08/2021 05/09/2021 9:08 PM CHEMISTRY ACCOUNT MANAGER documented as of this encounter Care Teams Reinforcing Steel Machine Operator Relationship Specialty Start Date End Date Esperanza Gatica MD PCP - General Family Practice 10/13/11 12/29/21 [place] [address] [place] GARCIA [address] PCP - Assigned PCP 12/05/17 08/23/18 Alfreda Ray PA-C [address] [place] [address] PCP - General Family Medicine 12/30/21 [place] [address] [place]ARC[place] [address] Assigned PCP 12/05/17 09/30/19 [place] [address] [place] [address] Assigned PCP 10/01/19 03/02/20 [place] [address] [place] [address] Assigned PCP 03/03/20 05/25/20 [place] [address] [place] [address] Assigned PCP 05/26/20 09/28/20 [place] [address] [place] [address] Assigned PCP 09/29/20 07/31/22 [place] [address] [place] [address] [address] Assigned Musculoskeletal Provider 10/20/20 04/17/22 Alfreda Ray PA-C [address] [place] [address] Referring Physician Family Medicine 12/31/21 Katrin Orellana PA-C [address] [place] [address] Physician International Travel Consultant Dermatology 12/31/21 Shanna Vang PA-C [address] [address] Assigned Cancer Care Provider 01/10/22 Fransisco Eddy MD [address] [place] [address] Assigned Rheumatology Provider 05/09/22 [place] [address] [address] [place] [address] Assigned Pain Medication Provider 06/29/22 09/04/22 [place] [address] [place] [address] Assigned PCP 08/15/22 08/28/22 Katrin Orellana PA-C [address] [place] [address] [address] [place] [address] Assigned Surgical Provider 08/15/22 02/10/24 Cristina Hsieh [facility] [address] [facility] [place] [address] Pharmacist Pharmacist 09/07/22 Alfreda Ray PA-C [address] [place] [address] 488552 Assigned Pain Medication Provider 09/05/22 09/10/23 Alfreda Ray PA-C [address] [place] [address] 771442 Assigned PCP 08/29/22 Cristina Hsieh [facility] [address] [place] [address] Assigned MTM Pharmacist 09/26/22 Dakota Tatum MD [address] [place] [address] Cardiovascular Disease 03/25/23 Dakota Tatum MD [address] [place] [address] Assigned Heart and Vascular Provider 05/01/23 [place] [address] [facility], [address] [address] Assigned Musculoskeletal Provider 04/12/24 documented as of this encounter
--- OUTSIDE RECORDS SUMMARY | 2024-06-22 23:16 | XMS_ITS | Encounter Summary ---
Author Organization [place] Address [address] [place] [address] Care Team Providers Care It Infrastructure Engineer Name Role Phone Esperanza Gatica MD Primary Care Provider + Esperanza Gatica MD Unavailable +[phone] Esperanza Gatica MD Unavailable +[phone] Esperanza Gatica MD Unavailable +[phone] Esperanza Gatica MD Unavailable +[phone] Esperanza Gatica MD Unavailable +[phone] Esperanza Gatica MD Unavailable +[phone] Jesús Orourke MD Unavailable Alfreda RayC Primary Care Provider + Alfreda Ray PA-C Unavailable + [phone] Katrin Orellana PA-C Unavailable [phone] Shanna VangC Unavailable +[phone] Fransisco Eddy MD Unavailable [phone] Esperanza Gatica MD Unavailable +[phone] Esperanza Gatica MD Unavailable +[phone] Katrin Orellana PA-C Unavailable [phone] Cristina Hsieh [facility] Unavailable Cory Alfreda Liu PA-C Unavailable +[phone] Ho Raymustapha Liu PA-C Unavailable +[phone] Cristina Hsieh [facility] Unavailable +[phone] Dakota Tatum MD Unavailable +[phone] Dakota Tatum MD Unavailable +[phone] Srinivas Marie DO Unavailable [phone] Reason for Visit * Reason Onset Date Comments Medication Question 07/01/2012 Ambien and T razodone Encounter Details Date Type Department Care Team (Late st Contact Info) Description 07/01/2012 MyC Medical Advice [address], [address] [place] [address] [place] [address] [place] [address] Medication Question (Ambien and Trazodone) Social History Tobacco Use Types Packs/Day Years Used Date Smoking Tobacco: Former Cigarettes Q uit: 06/21/1973 Smokeless Tobacco: Former Alcohol Use Standard Drinks/Week Comments Yes 0 (1 standard drink = 0.6 oz pur e alcohol) rarely Comments No Sex and Gender Information Value Date Recorded Sex Assigned at Female 08/17/2018 7:56 AM MONTESSORI PRESCHOOL TEACHER Legal Sex Female 4:24 AM MONTESSORI PRESCHOOL TEACHER Gender Identity Female 08/17/2018 7:56 AM MONTESSORI PRESCHOOL TEACHER Sexual Orientation Straight 08/17/2018 7: 56 AM MONTESSORI PRESCHOOL TEACHER documented as of this encounter Miscellaneous Notes * Telephone Encounter - Esperanza Gatica MD - 07/01/2012 1:43 PM MONTESSORI PRESCHOOL TEACHER I recommend she try to stop the ambien 5mg after another week or so, and she can always take 2 of the trazodone while weaning off the ambien. Let us know how she is doing in the next week again. ESSORI PRESCHOOL TEACHER documented in this encounter Plan of Treatment Upcoming Encounters Date Type Department Care Team (Late st Contact Info) Description 09/07/2024 10:00 AM CDT Office Visit [facility] [address] [place] [phone] Fransisco Eddy MD [address] [place] [address] 03/29/2025 3:40 PM CDT Office Visit [address] [phone] Alfreda Ray PA-C [address] [place] [address] 017142 documented as of this encounter Visit Diagnoses Not on filedocumented in this encounter Additional Health Concerns Infection Onset Date Last Indicated Resolved Time Rule Out COVID-19 05/08/2021 05/08/2021 05/09/2021 9:08 PM MONTESSORI PRESCHOOL TEACHER documented as of this encounter Care Teams It Infrastructure Engineer Relationship Specialty Start Date End Date Esperanza Gatica MD PCP - General Family Practice 10/13/11 12/29/21 [place] [address] [place] [address] PCP - Assigned PCP 12/05/17 08/23/18 Alfreda Ray PA-C [address] [place] [address] PCP - General Family Medicine 12/30/21 [place] [address] [place] [address] Assigned PCP 12/05/17 09/30/19 [place] [address] [place] [address] Assigned PCP 10/01/19 03/02/20 [place] [address] [place] [address] Assigned PCP 03/03/20 05/25/20 [place] [address] [place] [address] Assigned PCP 05/26/20 09/28/20 [place] [address] [place] [address] Assigned PCP 09/29/20 07/31/22 Jesú[place] [address] [place] [address] Assigned Musculoskeletal Provider 10/20/20 04/17/22 Alfreda Ray PA-C [address] [place] [address] 233652 Referring Physician Family Medicine 12/31/21 Katrin Orellana PA-C [address] [place] [address] Physician Manager Science Dermatology 12/31/21 Shanna Vang PA-C [address] [place] [address] Assigned Cancer Care Provider 01/10/22 Fransisco Eddy MD [address] [place] [address] [address] [place] [address] Assigned Rheumatology Provider 05/09/22 [place] [address] [facility] [place] [address] Assigned Pain Medication Provider 06/29/22 09/04/22 [place] [address] [address] [place] [address] Assigned PCP 08/15/22 08/28/22 Katrin Orellana PA-C [address] [place] [address] Assigned Surgical Provider 08/15/22 02/10/24 [place] [address] [place] [address] [place] [address] Pharmacist Pharmacist 09/07/22 Alfreda Ray PA-C [address] [place] [address] Assigned Pain Medication Provider 09/05/22 09/10/23 Alfreda Ray PA-C [address] [place] [address] Assigned PCP 08/29/22 Cristina Hsieh [facility] [address] [facility] [address] [place] [address] Assigned MTM Pharmacist 09/26/22 Dakota Tatum MD [address] [place] [address] Cardiovascular Disease 03/25/23 Dakota Tatum MD [address] [place] [address] Assigned Heart and Vascular Provider 05/01/23 [place] [address] [address], [facility] [address] [place] [address] Assigned Musculoskeletal Provider 04/12/24 documented as of this encounter
--- OUTSIDE RECORDS SUMMARY | 2024-06-22 23:16 | XMS_ITS | Encounter Summary ---
Author Organization [place] Address [address] [place] [address] Care Team Providers Care Radius Grinder Name Role Phone Esperanza Gatica MD Primary Care Provider + Esperanza Gatica MD Unavailable +[phone] Espearnza Gatica MD Unavailable +[phone] Esperanza Gatica MD Unavailable +760 Esperanza Gatica MD Unavailable +500 Esperanza Gatica MD Unavailable +[phone] Esperanza Gatica MD Unavailable +[phone] Jesús Orourke MD Unavailable Alfreda RayC Primary Care Provider + Alfreda Ray PA-C Unavailable + [phone] Katrin Orellana PA-C Unavailable [phone] Shanna VangC Unavailable +[phone] Fransisco Eddy MD Unavailable [phone] Esperanza Gatcia MD Unavailable +[phone] Esperanza Gatica MD Unavailable +[phone] Katrin Orellana PA-C Unavailable Cristina Hsieh [facility] Unavailable Ho Raymustapha Liu PA-C Unavailable +[phone] Alfreda Ray Alexa KING Unavailable +[phone] [facility] Unavailable [phone] Dakota Tatum MD Unavailable Dakota Tatum MD Unavailable [phone] Srinivas Marie DO Unavailable Reason for Visit * Reason Onset Date Comments Refill Request 01/01/2013 ultram Encounter Details Date Type Department Care Team (Late st Contact Info) Description 01/01/2013 MyC Refill M [address], [address] [place] [address] [place] [address] [place] [address] Refill Request (ultram) Social History Tobacco Use Types Packs/Day Years Used Date Smoking Tobacco: Former Cigarettes Q uit: 06/21/1973 Smokeless Tobacco: Former Alcohol Use Standard Drinks/Week Comments Yes 0 (1 standard drink = 0.6 oz pur e alcohol) rarely Comments No Sex and Gender Information Value Date Recorded Sex Assigned at Female 08/17/2018 7:56 AM RECORDS SECTION SUPERVISOR Legal Sex Female 4:24 AM RECORDS SECTION SUPERVISOR Gender Identity Female 08/17/2018 7:56 AM RECORDS SECTION SUPERVISOR Sexual Orientation Straight 08/17/2018 7: 56 AM RECORDS SECTION SUPERVISOR documented as of this encounter Miscellaneous Notes * Telephone Encounter - Lisa Harper - 01/02/2013 11:50 AM CDT Date of last OV: 11/08/12 Reason for visit: osteoarthritis Date last filled: per epic 11/25/12 #30 Labs pertaining to med: none, Unable to approve per standing orders, routed to provider. Lisa Harper RN * Telephone Encounter - Lisa Harper - 01/02/2013 11:50 AM CDTMessage from MyChart: Original authorizing provider: MD Alexandria Brannon would like a refill of the following medications: traMADol (ULTRAM) 50 MG tablet [Esperanza Gatica MD] Preferred pharmacy: [id number] Comment: Sent from my iPad documented in this encounter Plan of Treatment Upcoming Encounters Date Type Department Care Team (Late st Contact Info) Description 09/07/2024 10:00 AM CDT Office Visit [facility] [address] [phone] Fransisco Eddy MD [address] [place] [address] [phone] 03/29/2025 3:40 PM CDT Office Visit [address] [phone] Alfreda Ray PA-C [address] [place] [address] [phone] documented as of this encounter Visit Diagnoses Diagnosis Knee pain- Primary Pain in joint, lower leg documented in this encounter Additional Health Concerns Infection Onset Date Last Indicated Resolved Time Rule Out COVID-19 05/08/2021 05/08/2021 05/09/2021 9:08 PM RECORDS SECTION SUPERVISOR documented as of this encounter Care Teams Radius Grinder Relationship Specialty Start Date End Date Esperanza Gatica MD PCP - General Family Practice 10/13/11 12/29/21 [place] [address] [place] [address] PCP - Assigned PCP 12/05/17 08/23/18 Alfreda Ray PA-C [address] [place] [address] PCP - General Family Medicine 12/30/21 [place] [address] [place] [address] Assigned PCP 12/05/17 09/30/19 [place] [address] [place] [address] Assigned PCP 10/01/19 03/02/20 [place] [address] [place] [address] Assigned PCP 03/03/20 05/25/20 [place] [address] [place] [address] Assigned PCP 05/26/20 09/28/20 [place] [address] [place] [address] Assigned PCP 09/29/20 07/31/22 [place] [address] [place] [address] Assigned Musculoskeletal Provider 10/20/20 04/17/22 Alfreda Ray PA-C [address] [place] [address] Referring Physician Family Medicine 12/31/21 Katrin Orellana PA-C [address] [place] [address] Physician Safety Consultant Dermatology 12/31/21 Shanna Vang PA-C [address] [place] [address] Assigned Cancer Care Provider 01/10/22 Fransisco Eddy MD [address] [place] [address] Assigned Rheumatology Provider 05/09/22 [place] [address] [place] [address] Assigned Pain Medication Provider 06/29/22 09/04/22 [place] [address] [place] [address] Assigned PCP 08/15/22 08/28/22 Katrin Orellana PA-C [address] [place] [address] Assigned Surgical Provider 08/15/22 02/10/[address] [facility] [address] [facility] [place] [address] Pharmacist Pharmacist 09/07/22 Alfreda Ray PA-C [address] [place] [address] Assigned Pain Medication Provider 09/05/22 09/10/23 Alfreda Ray PA-C [address] [place] [address] Assigned PCP 08/29/22 Cristina Hsieh, [facility] [address] [place] [address] Assigned MTM Pharmacist 09/26/22 Dakota Tatum MD [address] [place] [address] Cardiovascular Disease 03/25/23 Dakota Tatum MD [address] [place] [address] Assigned Heart and Vascular Provider 05/01/23 [place] [address] [address] Assigned Musculoskeletal Provider 04/12/24 documented as of this encounter
--- OUTSIDE RECORDS SUMMARY | 2024-06-22 23:16 | XMS_ITS | Encounter Summary ---
Author Organization [place] Address [address] [place] [address] Care Team Providers Care Pianos And Organs Salesperson Name Role Phone Esperanza Gatica MD Primary Care Provider + Esperanza Gatica MD Unavailable +[phone] Esperanza Gatica MD Unavailable +[phone] Esperanza Gatica MD Unavailable +[phone] Esperanza Gatica MD Unavailable +274 Esperanza Gatica MD Unavailable +[phone] Esperanza Gatica MD Unavailable +[phone] Jesús Orourke MD Unavailable Alfreda RayC Primary Care Provider + Alfreda Ray PA-C Unavailable + [phone] Katrin Orellana PA-C Unavailable +[phone] Shanna VangC Unavailable +[phone] Fransisco Eddy MD Unavailable +[phone] Esperanza Gatica MD Unavailable +[phone] Esperanza Gatica MD Unavailable +[phone] Katrin Orellana PA-C Unavailable Cristina Hsieh [facility] Unavailable Cory Alfreda Liu PA-C Unavailable +[phone] Alfreda Ray Alexa KING Unavailable +[phone] Cristina Hsieh [facility] Unavailable [phone] Dakota Tatum MD Unavailable Dakota Tatum MD Unavailable [phone] Srinivas Marie DO Unavailable [phone] Reason for Visit * Reason Onset Date Comments Refill Request 02/06/2012 Ultram Encounter Details Date Type Department Care Team (Late st Contact Info) Description 02/06/2012 MyC [facility] [id number] [place] [address], [address] [place] [address] [place] [address] [place] [address] Refill Request (Ultram ) Social History Tobacco Use Types Packs/Day Years Used Date Smoking Tobacco: Former Cigarettes Q uit: 06/21/1973 Smokeless Tobacco: Former Alcohol Use Standard Drinks/Week Comments Yes 0 (1 standard drink = 0.6 oz pur e alcohol) rarely Comments No Sex and Gender Information Value Date Recorded Sex Assigned at Female 08/17/2018 7:56 AM OVERSIZE LOAD PILOT ESCORT Legal Sex Female 4:24 AM OVERSIZE LOAD PILOT ESCORT Gender Identity Female 08/17/2018 7:56 AM OVERSIZE LOAD PILOT ESCORT Sexual Orientation Straight 08/17/2018 7: 56 AM OVERSIZE LOAD PILOT ESCORT documented as of this encounter Miscellaneous Notes * Telephone Encounter - Leigha Rinaldi - 02/08/2012 8:03 AM CD[facility] Original authorizing provider: MD Alexandria Brannon would like a refill of the following medications: traMADol (ULTRAM) 50 MG tablet [Esperanza Gatica MD] Preferred pharmacy: [facility] [place] Comment: Sent from my iPad documented in this encounter Plan of Treatment Upcoming Encounters Date Type Department Care Team (Late st Contact Info) Description 09/07/2024 10:00 AM CDT Office Visit [facility] [address] [place] [phone] Fransisco Eddy MD [address] [place] [address] 03/29/2025 3:40 PM CDT Office Visit [address] [phone] Alfreda Ray PA-C [address] [place] [address] 481442 documented as of this encounter Visit Diagnoses Diagnosis Knee pain Pain in joint, lower leg documented in this encounter Additional Health Concerns Infection Onset Date Last Indicated Resolved Time Rule Out COVID-19 05/08/2021 05/08/2021 05/09/2021 9:08 PM OVERSIZE LOAD PILOT ESCORT documented as of this encounter Care Teams Pianos And Organs Salesperson Relationship Specialty Start Date End Date Esperanza Gatica MD PCP - General Family Practice 10/13/11 12/29/21 [place] [address] [address] [address] PCP - Assigned PCP 12/05/17 08/23/18 Alfreda Ray PA-C [address] [place] [address] PCP - General Family Medicine 12/30/21 [place] [address] [address] [address] Assigned PCP 12/05/17 09/30/19 [place] [address] [place] [address] Assigned PCP 10/01/19 03/02/20 [place] [address] [place] [address] Assigned PCP 03/03/20 05/25/20 [place] [address] [place] [address] Assigned PCP 05/26/20 09/28/20 [place] [address] [place] [address] Assigned PCP 09/29/20 07/31/22 Jessú [place] [address] [place] [address] Assigned Musculoskeletal Provider 10/20/20 04/17/22 Alfreda Ray PA-C [address] [place] [address] 247912 Referring Physician Family Medicine 12/31/21 Katrin Orellana PA-C [address] [place] [address] Physician Press Operator Heavy Duty Dermatology 12/31/21 Shanna Vang PA-C [address] [place] [address] Assigned Cancer Care Provider 01/10/22 Fransisco Eddy MD [address] [place] [address] [address] [place] [address] Assigned Rheumatology Provider 05/09/22 [place] [address] [facility] [place] [address] Assigned Pain Medication Provider 06/29/22 09/04/22 [place] [address] [address] [facility] [address] Assigned PCP 08/15/22 08/28/22 Katrin Orellana PA-C [address] [place] [address] Assigned Surgical Provider 08/15/22 02/10/24 [place] [address] [place] [address] [place] [address] Pharmacist Pharmacist 09/07/22 Alfreda Ray PA-C [address] [place] [address] Assigned Pain Medication Provider 09/05/22 09/10/23 Alfreda Ray PA-C [address] [place] [address] Assigned PCP 08/29/22 Cristina Hsieh [facility] [address] [facility] [address] [place] [address] Assigned MTM Pharmacist 09/26/22 Dakota Tatum MD [address] [place] [address] Cardiovascular Disease 03/25/23 Dakota Tatum MD [address] [place] [address] Assigned Heart and Vascular Provider 05/01/23 [place] [address] CE[address]UM, [facility] [address] [place] [address] Assigned Musculoskeletal Provider 04/12/24 documented as of this encounter
--- OUTSIDE RECORDS SUMMARY | 2024-06-22 23:16 | XMS_ITS | Encounter Summary ---
Author Organization [place] Address [address] [place] [address] Care Team Providers Care Corporate Director Of Human Resources Name Role Phone Esperanza Gatica MD Primary Care Provider + Esperanza Gatica MD Unavailable +[phone] Esperanza Gatica MD Unavailable +[phone] Esperanza Gatica MD Unavailable +[phone] Esperanza Gatica MD Unavailable +[phone] Esperanza Gatica MD Unavailable +[phone] Esperanza Gatica MD Unavailable +[phone] Jesús Orourke MD Unavailable Alfreda RayC Primary Care Provider + Alfreda Ray PA-C Unavailable + [phone] Katrin Orellana PA-C Unavailable [phone] Shanna VangC Unavailable +[phone] Fransisco Eddy MD Unavailable [phone] Esperanza Gatica MD Unavailable +[phone] Esperanza Gatica MD Unavailable +[phone] Katrin Orellana PA-C Unavailable [phone] Cristina Hsieh [facility] Unavailable CoryAlfreda PA-C Unavailable Ho Raymustapha Lui PA-C Unavailable +[phone] Cristina Hsieh [facility] Unavailable Dakota Tatum MD Unavailable Dakota Tatum MD Unavailable [phone] Srinivas Marie DO Unavailable [phone] Reason for Visit * Reason Onset Date Comments Refill Request 11/25/2012 tramadol 50 MG Encounter Details Date Type Department Care Team (Late st Contact Info) Description 11/25/2012 MyC Refill [address] [address] [place] [address] [place] [address] Refill Request (tramadol 50 MG) Social History Tobacco Use Types Packs/Day Years Used Date Smoking Tobacco: Former Cigarettes Q uit: 06/21/1973 Smokeless Tobacco: Former Alcohol Use Standard Drinks/Week Comments Yes 0 (1 standard drink = 0.6 oz pur e alcohol) rarely Comments No Sex and Gender Information Value Date Recorded Sex Assigned at Female 08/17/2018 7:56 AM CONTROL ROOM OPERATOR Legal Sex Female 4:24 AM CONTROL ROOM OPERATOR Gender Identity Female 08/17/2018 7:56 AM CONTROL ROOM OPERATOR Sexual Orientation Straight 08/17/2018 7: 56 AM CONTROL ROOM OPERATOR documented as of this encounter Miscellaneous Notes * Telephone Encounter - Diane Macedo - 11/25/2012 9:48 AM CDT Does not meet standard requirement for RN refill protocol. Medication: tramadol 50 MG Last OV: 11/08/12 Reason for visit: Osteoarthritis Last refill: 10/28/12 #30 Please refill if appropriate. Thank you! Diane Macedo RN [facility] Work Force * Telephone Encounter - Diane Macedo - 11/25/2012 9:47 AM [facility] Original authorizing provider: MD Alexandria Brannon would like a refill of the following medications: traMADol (ULTRAM) 50 MG tablet [Esperanza Gatica MD] Preferred pharmacy: [id number] Comment: Sent from my Snagstahone documented in this encounter Plan of Treatment Upcoming Encounters Date Type Department Care Team (Late st Contact Info) Description 09/07/2024 10:00 AM CDT Office Visit [address] [phone] Fransisco Eddy MD [address] [place] [address] 242475 03/29/2025 3:40 PM CDT Office Visit [address] [phone] Alfreda Ray PA-C [address] [place] [address] 858792 documented as of this encounter Visit Diagnoses Diagnosis Knee pain Pain in joint, lower leg documented in this encounter Additional Health Concerns Infection Onset Date Last Indicated Resolved Time Rule Out COVID-19 05/08/2021 05/08/2021 05/09/2021 9:08 PM CONTROL ROOM OPERATOR documented as of this encounter Care Teams Corporate Director Of Human Resources Relationship Specialty Start Date End Date Esperanza Gatica MD PCP - General Family Practice 10/13/11 12/29/21 [place] [address] [place] [address] PCP - Assigned PCP 12/05/17 08/23/18 Alfreda Ray PA-C [address] [place] [address] PCP - General Family Medicine 12/30/21 [place] [address] [place] [address] Assigned PCP 12/05/17 09/30/19 [place] [address] [place] [address] Assigned PCP 10/01/19 03/02/20 [place] [address] [place] [address] Assigned PCP 03/03/20 05/25/20 [place] [address] [place] [address] Assigned PCP 05/26/20 09/28/20 [place] [address] [place] [address] Assigned PCP 09/29/20 07/31/22 Jesú[place] [address] [place], [place] [address] Assigned Musculoskeletal Provider 10/20/20 04/17/22 Alfreda Ray PA-C [address] [place] [address] Referring Physician Family Medicine 12/31/21 Katrin Orellana PA-C [address] [place] [address] Physician Rn Procedures Dermatology 12/31/21 Shanna Vang PA-C [address] [place] [address] 668364 Assigned Cancer Care Provider 01/10/22 Fransisco Eddy MD [address] [place] [place] [address] 816065 Assigned Rheumatology Provider 05/09/22 [place] [address] [place] [address] Assigned Pain Medication Provider 06/29/22 09/04/22 [place] [address] [address] [place] [address] Assigned PCP 08/15/22 08/28/22 Katrin Orellana PA-C [address] [place] [address] 010065 Assigned Surgical Provider 08/15/22 02/10/24 Cristina Hsieh, [facility] [address] [facility] [place] [address] Pharmacist Pharmacist 09/07/22 Alfreda Ray PA-C [address] [place] [address] Assigned Pain Medication Provider 09/05/22 09/10/23 Alfreda Ray PA-C [address] [place] [address] Assigned PCP 08/29/22 Cristina Hsieh, [facility] [address] [address] Assigned MTM Pharmacist 09/26/22 Dakota Tatum MD [address] [place] [address] Cardiovascular Disease 03/25/23 Dakota Tatum MD [address] [place] [address] Assigned Heart and Vascular Provider 05/01/23 [place] [address] [facility], [address] [address] Assigned Musculoskeletal Provider 04/12/24 documented as of this encounter
--- OUTSIDE RECORDS SUMMARY | 2024-06-22 23:16 | XMS_ITS | Encounter Summary ---
Author Organization [place] Address [address] [place] [address] Care Team Providers Care Bellhop Captain Name Role Phone Esperanza Gatica MD Primary Care Provider + Esperanza Gatica MD Unavailable +[phone] Esperanza Gatica MD Unavailable +[phone] Esperanza Gatica MD Unavailable +[phone] Esperanza Gatica MD Unavailable +539 Esperanza Gatica MD Unavailable +[phone] Esperanza Gatica MD Unavailable +[phone] Jesús Orourke MD Unavailable Alfreda RayC Primary Care Provider + Alfreda Ray PA-C Unavailable + [phone] Katrin Orellana PA-C Unavailable [phone] Shanna VangC Unavailable +[phone] Fransisco Eddy MD Unavailable [phone] Esperanza Gatica MD Unavailable +[phone] Esperanza Gatica MD Unavailable +[phone] Katrin Orellana PA-C Unavailable Cristina Hsieh [facility] Unavailable Ray, Alfreda Liu PA-C Unavailable +[phone] Cory Alfreda Liu PA-C Unavailable +[phone] Cristina Hsieh [facility] Unavailable [phone] Dakota Tatum MD Unavailable Dakota Tatum MD Unavailable Srinivas Marie DO Unavailable [phone] Reason for Visit * Reason Onset Date Comments Refill Request 06/24/2013 Lisinopril-HCTZ Encounter Details Date Type Department Care Team (Late st Contact Info) Description 06/24/2013 MyC Refill [address], [address] [place] [address] [place] [address] [place] [address] Refill Request (Lisinopril-HCTZ) Social History Tobacco Use Types Packs/Day Years Used Date Smoking Tobacco: Former Cigarettes Q uit: 06/21/1973 Smokeless Tobacco: Former Alcohol Use Standard Drinks/Week Comments Yes 0 (1 standard drink = 0.6 oz pur e alcohol) rarely Comments No Sex and Gender Information Value Date Recorded Sex Assigned at Female 08/17/2018 7:56 AM CERTIFIED PHARMACY TECHNICIAN Legal Sex Female 4:24 AM CERTIFIED PHARMACY TECHNICIAN Gender Identity Female 08/17/2018 7:56 AM CERTIFIED PHARMACY TECHNICIAN Sexual Orientation Straight 08/17/2018 7: 56 AM CERTIFIED PHARMACY TECHNICIAN documented as of this encounter Miscellaneous Notes * Telephone Encounter - Leigha Rinaldi - 06/26/2013 8:00 AM CST DIURETICS (May be Rx'd for edema) Last Office Visit R/T Diagnosis: 11/08/2012 BP Readings from Last 1 Encounters: 11/08/12 112/60 Potassium Date Value Range Status 10/10/2012 4.9 Final ] Creatinine Date Value Range Status 10/10/2012 1.1 Final Unable to fill per RN protocol. Will route to provider. Leigha Rinaldi RN IFIED PHARMACY TECHNICIAN * Telephone Encounter - Leigha Rinaldi - 06/26/2013 7:59 AM [facility] Original authorizing provider: MD Sadia Brannonyovana Bradshaw would like a refill of the following medications: lisinopril-hydrochlorothiazide (PRINZIDE,ZESTORETIC) 10-12.5 MG per tablet [Esperanza Gatica MD] Preferred pharmacy: [id number] Comment: Sent from my iPadI called this in to the pharmacy but it hasn't been filled. I take the last one onWednesday (6th). IFIED PHARMACY TECHNICIAN documented in this encounter Plan of Treatment Upcoming Encounters Date Type Department Care Team (Late st Contact Info) Description 09/07/2024 10:00 AM CDT Office Visit [facility] [address] [phone] Fransisco Eddy MD [address] [place] [address] 232605 03/29/2025 3:40 PM CDT Office Visit [address] [phone] Alfreda Ray PA-C [address] [place] [address] 659122 documented as of this encounter Visit Diagnoses Diagnosis HTN (hypertension), benign Essential hypertension, benign documented in this encounter Additional Health Concerns Infection Onset Date Last Indicated Resolved Time Rule Out COVID-19 05/08/2021 05/08/2021 05/09/2021 9:08 PM CERTIFIED PHARMACY TECHNICIAN documented as of this encounter Care Teams Bellhop Captain Relationship Specialty Start Date End Date Esperanza Gatica MD PCP - General Family Practice 10/13/11 12/29/21 [place] [address] [place] [address] PCP - Assigned PCP 12/05/17 08/23/18 Alfreda Ray PA-C [address] [place] [address] PCP - General Family Medicine 12/30/21 [place] [address] [place] [address] Assigned PCP 12/05/17 09/30/19 [place] [address] [place] [address] Assigned PCP 10/01/19 03/02/20 [place] [address] [place] [address] Assigned PCP 03/03/20 05/25/20 [place] [address] [place] [address] Assigned PCP 05/26/20 09/28/20 [place] [address] [place] [address] Assigned PCP 09/29/20 07/31/22 Jesú[place] [address] [place] [address] Assigned Musculoskeletal Provider 10/20/20 04/17/22 Alfreda Ray PA-C [address] [place] [address] Referring Physician Family Medicine 12/31/21 Katrin Orellana PA-C [address] [place] [address] Physician Field Radio Operator Dermatology 12/31/21 Shanna Vang PA-C [address] 499424 Assigned Cancer Care Provider 01/10/22 Fransisco Eddy MD [address] [place] [address] 258685 Assigned Rheumatology Provider 05/09/22 [place] [address] [place] [address] Assigned Pain Medication Provider 06/29/22 09/04/22 [place] [address] [place] [address] Assigned PCP 08/15/22 08/28/22 Katrin Orellana PA-C [address] [place] [address] Assigned Surgical Provider 08/15/22 02/10/24 Cristina Hsieh, [facility] [address] [facility] [place] [address] Pharmacist Pharmacist 09/07/22 Alfreda Ray PA-C [address] [place] [address] Assigned Pain Medication Provider 09/05/22 09/10/23 Alfreda Ray PA-C [address] [place] [address] 823532 Assigned PCP 08/29/22 Cristina Hsieh, [facility] [address] [address] Assigned MTM Pharmacist 09/26/22 Dakota Tatum MD [address] [place] [address]117 Cardiovascular Disease 03/25/23 Dakota Tatum MD [address] [place] [address]165 Assigned Heart and Vascular Provider 05/01/23 [place] [address] [place] , [address] [address] Assigned Musculoskeletal Provider 04/12/24 documented as of this encounter
--- OUTSIDE RECORDS SUMMARY | 2024-06-22 23:17 | XMS_ITS | Encounter Summary ---
Author Organization [place] Address [address] [place] [address] Care Team Providers Care Orthodontist Assistant Name Role Phone Alfa Marcelo MD Primary Care Provider Ajay Dailey MD Primary Care Provider [phone] Esperanza Gatica MD Primary Care Provider Esperanza Gatica MD Unavailable +[phone] Esperanza Gatica MD Unavailable +[phone] Esperanza Gatica MD Unavailable +[phone] Esperanza Gatica MD Unavailable +[phone] Esperanza Gatica MD Unavailable +[phone] Esperanza Gatica MD Unavailable +[phone] Jesús Orourke MD Unavailable Alfreda Ray PA-C Primary Care Provider + Alfreda RayC Unavailable +[phone] Katrin OrellanaC Unavailable Shanna Vang-C Unavailable +[phone] Fransisco Eddy MD Unavailable +[phone] Esperanza Gatica MD Unavailable +[phone] Esperanza Gatica MD Unavailable +[phone] Katrin Orellana PA-C Unavailable Cristina Hsieh [facility] Unavailable [phone] Cory Alfreda Liu PA-C Unavailable +[phone] Cory Alfreda Liu PA-C Unavailable +[phone] Cristina Hsieh [facility] Unavailable [phone] Dakota Tatum MD Unavailable +[phone] Dakota Tatum MD Unavailable +[phone] Srinivas Marie DO Unavailable [phone] Encounter Details Date Type Department Care Team (Late st Contact Info) Description 10/19/[address] [phone] Becky Leo MD [facility] [address] [address] [facility] Summary Social History Tobacco Use Types Packs/Day Years Used Date Smoking Tobacco: Former Cigarettes 1 5 0 06/21/1963 - 06/21/1968 Passive Smoke Exposure: Past Smokeless Tobacco: Never Comments:not a smoker Alcohol Use Standard Drinks/Week Comments Yes 0 (1 standard drink = 0.6 oz pur e alcohol) rare 1 monthly Comments No Sex and Gender Information Value Date Recorded Sex Assigned at Female 08/17/2018 7:56 AM FIELD SERVICE SPECIALIST Legal Sex Female 4:24 AM FIELD SERVICE SPECIALIST Gender Identity Female 08/17/2018 7:56 AM FIELD SERVICE SPECIALIST Sexual Orientation Straight 08/17/2018 7: 56 AM FIELD SERVICE SPECIALIST documented as of this encounter Plan of Treatment Upcoming Encounters Date Type Department Care Team (Late st Contact Info) Description 09/07/2024 10:00 AM CDT Office Visit [address] [place] [phone] Fransisco Eddy MD [address] [place] [address] 03/29/2025 3:40 PM CDT Office Visit [address] [phone] Alfreda Ray PA-C [address] [place] [address] 766702 documented as of this encounter Visit Diagnoses [facility] Summary- Primary documented in this encounter Additional Health Concerns Infection Onset Date Last Indicated Resolved Time Rule Out COVID-19 05/08/2021 05/08/2021 05/09/2021 9:08 PM FIELD SERVICE SPECIALIST documented as of this encounter Care Teams Orthodontist Assistant Relationship Specialty Start Date End Date Alfa Marcelo MD [address] [address] PCP - General 01/22/04 01/28/11 Ajay Dailey MD [address] [address] PCP - General Family Practice 01/29/11 10/12/11 Esperanza Gatica MD [address] [address] PCP - General Family Practice 10/13/11 12/29/21 [place] [address] [place] [address] PCP - Assigned PCP 12/05/17 08/23/18 Alfreda Ray PA-C [address] [place] [address] PCP - General Family Medicine 12/30/21 [place] [address] [place] [address] Assigned PCP 12/05/17 09/30/19 [place] [address] [place] [address] Assigned PCP 10/01/19 03/02/20 [place] [address] [place] [address] Assigned PCP 03/03/20 05/25/20 [place] [address] [place] [address] Assigned PCP 05/26/20 09/28/20 [place] [address] [place] [address] Assigned PCP 09/29/20 07/31/22 [place] [address] [place] [address] Assigned Musculoskeletal Provider 10/20/20 04/17/22 Alfreda Ray PA-C [address] [place] [address] Referring Physician Family Medicine 12/31/21 Katrin Orellana PA-C [address] [address] Physician Fourth Grade Teacher Dermatology 12/31/21 Shanna Vang PA-C [address] 672964 Assigned Cancer Care Provider 01/10/22 Fransisco Eddy MD [address] [place] [address] 410735 Assigned Rheumatology Provider 05/09/22 [place] [address] [place] [address] Assigned Pain Medication Provider 06/29/22 09/04/22 [place] [address] [address] [address] Assigned PCP 08/15/22 08/28/22 Katrin Orellana PA-C [address] [place] [address] Assigned Surgical Provider 08/15/22 02/10/24 Cristina Hsieh, [facility] [address] [facility] [place] [address] Pharmacist Pharmacist 09/07/22 Alfreda Ray PA-C [address] [place] [address] Assigned Pain Medication Provider 09/05/22 09/10/23 Alfreda Ray PA-C [address] [place] [address] Assigned PCP 08/29/22 Cristina Hsieh, [facility] [address] [facility] [address] [place] [address] Assigned MTM Pharmacist 09/26/22 Dakota Tatum MD [address] [place] [address] 691635 Cardiovascular Disease 03/25/23 Dakota Tatum MD [address] [place] [address] 097915 Assigned Heart and Vascular Provider 05/01/23 [place] [address] [address]AST[address]UM, [facility] [address] [place] [address] Assigned Musculoskeletal Provider 04/12/24 documented as of this encounter
--- OUTSIDE RECORDS SUMMARY | 2024-06-22 23:17 | XMS_ITS | Encounter Summary ---
Author Organization [facility] Address [address] [place] [address] Care Team Providers Care Vendor Relationship Manager Name Role Phone Alfa Marcelo MD Primary Care Provider Ajay Dailey MD Primary Care Provider [phone] Esperanza Gatica MD Primary Care Provider Esperanza Gatica MD Unavailable +[phone] Esperanza Gatica MD Unavailable +[phone] Esperanza Gatica MD Unavailable +[phone] Esperanza Gatica MD Unavailable +[phone] Esperanza Gatica MD Unavailable +[phone] Esperanza Gatica MD Unavailable +[phone] Jesús Orourke MD Unavailable Alfreda Ray PA-C Primary Care Provider + Alfreda RayC Unavailable +[phone] Katrin OrellanaC Unavailable Shanna Vang-C Unavailable +[phone] Fransisco Eddy MD Unavailable +[phone] Esperanza Gatica MD Unavailable +[phone] Esperanza Gatica MD Unavailable +[phone] Katrin Orellana-C Unavailable Cristina Hsieh [facility] Unavailable [phone] Cory Alfreda Liu PA-C Unavailable +[phone] Cory Alrfeda LOERAC Unavailable +[phone] Cristina Hsieh [facility] Unavailable +[phone] Dakota Tatum MD Unavailable [phone] Dakota Tatum MD Unavailable [phone] Srinivas Marie DO Unavailable [phone] Reason for Visit * Reason Onset Date Comments MyChart Communication 07/05/2007 blood pres sure Encounter Details Date Type Department Care Team (Latest Contact Info) Description 07/05/2007 MyC Medical Advice [address] [address] [place] [address] MyChart Communication (blood pressure) Social History Tobacco Use Types Packs/Day Years Used Date Smoking Tobacco: Former Cigarettes Q uit: 06/21/1973 Alcohol Use Standard Drinks/Week Comments Yes 0 (1 standard drink = 0.6 oz pur e alcohol) rarely Comments No Sex and Gender Information Value Date Recorded Sex Assigned at Female 08/17/2018 7:56 AM SECURITY PATROL DRIVER Legal Sex Female 4:24 AM SECURITY PATROL DRIVER Gender Identity Female 08/17/2018 7:56 AM SECURITY PATROL DRIVER Sexual Orientation Straight 08/17/2018 7: 56 AM SECURITY PATROL DRIVER documented as of this encounter Plan of Treatment Upcoming Encounters Date Type Department Care Team (Late st Contact Info) Description 09/07/2024 10:00 AM CDT Office Visit [address] [place] [phone] Fransisco Eddy MD [address] [place] [address] 03/29/2025 3:40 PM CDT Office Visit [address] [address] Alfreda Ray PA-C [address] [place] [address] 840042 documented as of this encounter Visit Diagnoses Not on filedocumented in this encounter Additional Health Concerns Infection Onset Date Last Indicated Resolved Time Rule Out COVID-19 05/08/2021 05/08/2021 05/09/2021 9:08 PM SECURITY PATROL DRIVER documented as of this encounter Care Teams Vendor Relationship Manager Relationship Specialty Start Date End Date Alfa Marcelo MD [address] [address] PCP - General 01/22/04 01/28/11 Ajay Dailey MD [address] [address] PCP - General Family Practice 01/29/11 10/12/11 Esperanza Gatica MD [address] [address] PCP - General Family Practice 10/13/11 12/29/21 [place] [address] [place] [address] PCP - Assigned PCP 12/05/17 08/23/18 Alfreda Ray PA-C [address] [place] [address] PCP - General Family Medicine 12/30/21 [place] [address] [place] [address] Assigned PCP 12/05/17 09/30/19 [place] [address] [place] [address] Assigned PCP 10/01/19 03/02/20 [place] [address] [place] [address] Assigned PCP 03/03/20 05/25/20 [place] [address] [place] [address] Assigned PCP 05/26/20 09/28/20 [place] [address] [place] [address] Assigned PCP 09/29/20 07/31/22 Jesú[place] [address] [place] [address] Assigned Musculoskeletal Provider 10/20/20 04/17/22 Alfreda Ray PA-C [address] [place] [address] Referring Physician Family Medicine 12/31/21 Katrin Orellana PA-C [address] [place] [address] Physician Regulator Inspector Dermatology 12/31/21 Shanna Vang PA-C [address] [place] [address] Assigned Cancer Care Provider 01/10/22 Fransisco Eddy MD [address] [place] [address] Assigned Rheumatology Provider 05/09/22 [place] [address] [place] [address] Assigned Pain Medication Provider 06/29/22 09/04/22 [place] [address] [address] [facility] [address] Assigned PCP 08/15/22 08/28/22 Katrin Orellana PA-C [address] [place] [address] Assigned Surgical Provider 08/15/22 02/10/24 Cristina Hsieh [facility] [address] [facility] [facility] [place] [address] Pharmacist Pharmacist 09/07/22 Alfreda Ray PA-C [address] [place] [address] Assigned Pain Medication Provider 09/05/22 09/10/23 Alfreda Ray PA-C [address] [place] [address] 702652 Assigned PCP 08/29/22 Cristina Hsieh, [facility] [address] [facility] [address] [place] [address] Assigned MTM Pharmacist 09/26/22 Dakota Tatum MD [address] [place] [address] Cardiovascular Disease 03/25/23 Dakota Tatum MD [address] [place] [address] Assigned Heart and Vascular Provider 05/01/23 [place] [address] [address], [address] [address] Assigned Musculoskeletal Provider 04/12/24 documented as of this encounter
--- OUTSIDE RECORDS SUMMARY | 2024-06-22 23:17 | XMS_ITS | Encounter Summary ---
Author Organization [facility] Address [address] [place] [address] Care Team Providers Care Global Lead Name Role Phone Alfa Marcelo MD Primary Care Provider Ajay Dailey MD Primary Care Provider [phone] Esperanza Gatica MD Primary Care Provider Esperanza Gatica MD Unavailable +[phone] Esperanza Gatica MD Unavailable [phone] Esperanza Gatica MD Unavailable +[phone] Esperanza Gatica MD Unavailable +[phone] Esperanza Gatica MD Unavailable +[phone] Esperanza Gatica MD Unavailable +[phone] Jesús Orourke MD Unavailable Alfreda Ray PA-C Primary Care Provider + Alfreda RayC Unavailable +[phone] Katrin OrellanaC Unavailable [phone] Shanna Vang-C Unavailable +[phone] Fransisco Eddy MD Unavailable +[phone] Esperanza Gatica MD Unavailable +[phone] Esperanza Gatica MD Unavailable +[phone] Katrin OrellanaC Unavailable Cristina Hsieh [facility] Unavailable [phone] Cory Alfreda Liu PA-C Unavailable [phone] Cory Alfreda Liu PA-C Unavailable +[phone] Cristina Hsieh [facility] Unavailable [phone] Dakota Tatum MD Unavailable [phone] Dakota Tatum MD Unavailable [phone] Srinivas Marie DO Unavailable [phone] Encounter Details Date Type Department Care Team (Late st Contact Info) Description 11/08/2007 MyC Medical Advice [address] [address] Becky Leo MD [address] [address] Social History Tobacco Use Types Packs/Day Years Used Date Smoking Tobacco: Former Cigarettes Q uit: 06/21/1973 Alcohol Use Standard Drinks/Week Comments Yes 0 (1 standard drink = 0.6 oz pur e alcohol) rarely Comments No Sex and Gender Information Value Date Recorded Sex Assigned at Female 08/17/2018 7:56 AM PSYCHIATRIC CLINICIAN Legal Sex Female 4:24 AM PSYCHIATRIC CLINICIAN Gender Identity Female 08/17/2018 7:56 AM PSYCHIATRIC CLINICIAN Sexual Orientation Straight 08/17/2018 7: 56 AM PSYCHIATRIC CLINICIAN documented as of this encounter Plan of Treatment Upcoming Encounters Date Type Department Care Team (Late st Contact Info) Description 09/07/2024 10:00 AM CDT Office Visit [facility] [address] [address] Fransisco Eddy MD [address] [place] [address] 03/29/2025 3:40 PM CDT Office Visit [address] [phone] Alfreda Ray PA-C [address] [place] [address] documented as of this encounter Visit Diagnoses Not on filedocumented in this encounter Additional Health Concerns Infection Onset Date Last Indicated Resolved Time Rule Out COVID-19 05/08/2021 05/08/2021 05/09/2021 9:08 PM PSYCHIATRIC CLINICIAN documented as of this encounter Care Teams Global Lead Relationship Specialty Start Date End Date Alfa Marcelo MD [facility] [address] [place] [address] PCP - General 01/22/04 01/28/11 Ajay Dailey MD [facility] [address] [place] [address] PCP - General Family Practice 01/29/11 10/12/11 Esperanza Gatica MD [facility] [address] [place] [address] PCP - General Family Practice 10/13/11 12/29/21 [place] [address] [place] [address] PCP - Assigned PCP 12/05/17 08/23/18 Alfreda Ray PA-C [address] [place] [address] 873362 PCP - General Family Medicine 12/30/21 [place] [address] [address] [address] Assigned PCP 12/05/17 09/30/19 [place] [address] [address] [address] Assigned PCP 10/01/19 03/02/20 [place] [address] [address] [address] Assigned PCP 03/03/20 05/25/20 [place] [address] [address] [address] Assigned PCP 05/26/20 09/28/20 [place] [address] [address] [address] Assigned PCP 09/29/20 07/31/22 Jesú[place] [address] [place], [place] [address] Assigned Musculoskeletal Provider 10/20/20 04/17/22 Alfreda Ray PA-C [address] [place] [address] 215202 Referring Physician Family Medicine 12/31/21 Katrin Orellana PA-C [address] [place] [address] 142165 Physician Backend Java Developer Dermatology 12/31/21 Shanna Vang PA-C [address] [place] [address] Assigned Cancer Care Provider 01/10/22 Fransisco Eddy MD [address] [place] [address] 008205 Assigned Rheumatology Provider 05/09/22 [place] [address] [place] [address] Assigned Pain Medication Provider 06/29/22 09/04/22 [place] [address] [place] [address] Assigned PCP 08/15/22 08/28/22 Katrin Orellana PA-C [address] [place] [address] Assigned Surgical Provider 08/15/22 02/10/24 Cristina Hsieh [facility] [address] [place] [address] [place] [address] Pharmacist Pharmacist 09/07/22 Alfreda Ray PA-C [address] [place] [address] 947192 Assigned Pain Medication Provider 09/05/22 09/10/23 Alfreda Ray PA-C [address] [place] [address] Assigned PCP 08/29/22 Crisitna Hsieh, [facility] [address] [facility] [address] [place] [address] Assigned MTM Pharmacist 09/26/22 Dakota Tatum MD [address] [place] [address] 189145 Cardiovascular Disease 03/25/23 Dakota Tatum MD [address] [place] [address] 739345 Assigned Heart and Vascular Provider 05/01/23 [place] [address] [address], [facility] [address] [place] [address] Assigned Musculoskeletal Provider 04/12/24 documented as of this encounter
--- OUTSIDE RECORDS SUMMARY | 2024-06-22 23:17 | XMS_ITS | Clinical Summary ---
Author Organization [facility] Address [address] [place] [address] Care Team Providers Care Rvda Master Certified Rv Technician Name Role Phone Esperanza Gatica MD Primary Care Provider [phone] Source Comments You are receiving this document as you are listed as the primary care provider,follow-up provider, or the patient has been referred to you for consultation.This is in compliance with the Medicare and[facility] EHR Incentive Program,which states Providers who transition their patient to another setting of careor provider of care or refers their patient to another provider of care shouldprovide summary care record for each transition of care or referral. [facility] Allergies No known active allergies Medications Medication Sig Dispensed Refills Start Date End Date Status Cholecalciferol 1.25 MG (70926 UT) TABS Take by mouth. Ac tive aspirin EC (ECOTRIN) 325 MG enteric coated tablet Take 1 Tablet by mouth daily. Active atenolol (TENORMIN) 25 MG tablet Take 25 mg by mouth. 12/06/2020 Active celecoxib (CELEBREX) 100 MG capsule Take 1 Capsule by mouth daily. 01/22/2021 Active gabapentin (NEURONTIN) 300 MG capsule Take 300 mg by mouth three times a day. 01/22/2021 Active lisinopril-hydrochlor othiazide (PRINZIDE) 10-12.5 MG tablet Take 1 Tablet by mouth daily. 12/27/2020 Active HYDROcodone-acetamino phen (NORCO) 5-325 MG tablet 01/22/2021 Active simvastatin (ZOCOR) 20 MG tablet TAKE 1 TABLET BY MOUTH EVERYDAY AT BEDTIME 12/21/2020 Active temazepam (RESTORIL) 7.5 MG capsule TAKE 1 CAPSULE (7.5 MG) BY MOUTH AT BEDTIME 11/13/2020 Active traZODone (DESYREL) 50 MG tablet Take 50 mg by mouth daily at bedtime. at bedtime 12/11/2020 Active diazePAM (VALIUM) 5 MG tablet Take 1 Tablet by mouth every 6 hours as needed (Take 1 tablet 1 hour prior to the procedure. Take second tablet 30 minutes prior if needed). 2 Tablet 04/29/2021 Active Social History Tobacco Use Types Packs/Day Years Used Date Smoking Tobacco: Never Assessed Sex and Gender Information Value Date Recorded Sex Assigned at Not on file Gender Identity Not on file Sexual Orientation Not on file Last Filed Vital Signs Vital Sign Reading Time Taken Comments Blood Pressure 144/67 05/12/2021 3:11 PM DIRECTOR OF PUBLIC WORKS Pulse 66 05/12/2021 3:11 PM DIRECTOR OF PUBLIC WORKS Temperature - - Respiratory Rate 11 05/12/2021 3:11 PM DIRECTOR OF PUBLIC WORKS Oxygen Saturation - - Inhaled Oxygen Concentration - - Weight - - Height - - Body Mass Index - - Plan of Treatment Health Maintenance Due Date Last Done Comments Medicare Annual Wellness Visit 1942 Dexa 2007 RSV (1 - 1-dose 75+ series) 2017 COVID-19 Vaccine ( season) 2024 03/19/2021, 08/23/2020, 08/02/2020 Influenza (#1) 2024 02/27/2021, 06/2019, 03/01/2019, Additional history exists DTaP/Tdap/Td (3 - Tdap) 04/08/2027 04/08/2017, 03/14 Pneumococcal 65+ Yrs Completed 04/08/2015, 09/24/19 09 Zoster/Shingles Completed 02/23/2019, 06/2018, 08/13/2015 HepA Aged Out No longer eligi ble based on patient's age to complete this topic HepB Aged Out No longer eligi ble based on patient's age to complete this topic Hib Aged Out No longer eligi ble based on patient's age to complete this topic IPV (Polio) Aged Out No longer eligi ble based on patient's age to complete this topic MCV4 Aged Out No longer eligi ble based on patient's age to complete this topic Care Teams Rvda Master Certified Rv Technician Relationship Specialty Start [place] [address] [place] [address] PCP - General Family Practice 01/02/21
--- OUTSIDE RECORDS SUMMARY | 2024-06-22 23:17 | XMS_ITS | Encounter Summary ---
Author Organization [facility] Address [address] [place] [address] Care Team Providers Care Police Lieutenant Precinct Name Role Phone Alfa Marcelo MD Primary Care Provider Ajay Dailey MD Primary Care Provider [phone] Esperanza Gatica MD Primary Care Provider Esperanza Gatica MD Unavailable [phone] Esperanza Gatica MD Unavailable [phone] Esperanza Gatica MD Unavailable +[phone] Esperanza Gatica MD Unavailable +[phone] Esperanza Gatica MD Unavailable +[phone] Esperanza Gatica MD Unavailable +[phone] Jesús Orourke MD Unavailable Alfreda Ray PA-C Primary Care Provider + Alfreda RayC Unavailable [phone] Katrin OrellanaC Unavailable Shanna Vang-C Unavailable +[phone] Fransisco Eddy MD Unavailable [phone] Esperanza Gtaica MD Unavailable [phone] Esperanza Gatica MD Unavailable +[phone] Katrin Orellana PA-C Unavailable Cristina Hsieh [facility] Unavailable [phone] RayAlfreda olvera PA-C Unavailable [phone] Cory Alfreda Liu PA-C Unavailable +[phone] Cristina Hsieh [facility] Unavailable [phone] Dakota Tatum MD Unavailable [phone] Dakota Tatum MD Unavailable +[phone] Srinivas Marie DO Unavailable [phone] Encounter Details Date Type Department Care Team (Late st Contact Info) Description 09/23/[address] [address] Becky Leo MD [address] [address] [facility] Summary Social History Tobacco Use Types Packs/Day [...] Sex Assigned at Female 08/17/2018 7:56 AM BANDMILL OPERATOR Legal Sex Female 4:24 AM BANDMILL OPERATOR Gender Identity Female 08/17/2018 7:56 AM BANDMILL OPERATOR Sexual Orientation Straight 08/17/2018 7: 56 AM BANDMILL OPERATOR documented as of this encounter Plan of Treatment Upcoming Encounters Date Type Department Care Team (Late st Contact Info) Description 09/07/2024 10:00 AM CDT Office Visit [address] [phone] Fransisco Eddy MD [address] [place] [address] 03/29/2025 3:40 PM CDT Office Visit [facility] [address] [place] [phone] Alfreda Ray PA-C [address] [place] [address] 859902 documented as of this encounter Visit Diagnoses Diagnosis [place] [facility]-Ceuiywvvv Summary- Primary documented in this encounter Additional Health Concerns Infection Onset Date Last Indicated Resolved Time Rule Out COVID-05/08/2021 05/08/2021 05/09/2021 9:08 PM BANDMILL OPERATOR documented as of this encounter Care Teams Police Lieutenant Precinct Relationship Specialty Start Date End Date Alfa Marcelo MD [address] [address] PCP - General 01/22/04 01/28/11 Ajay Dailey MD [address] [address] PCP - General Family Practice 01/29/11 10/12/11 Esperanza Gatica MD [address] [address] PCP - General Family Practice 10/13/11 12/29/21 [place] [address] [facility] [place] [address] PCP - Assigned PCP 12/05/17 08/23/18 Alfreda Ray PA-C [address] [place] [address] PCP - General Family Medicine 12/30/21 [place] [address] [place] [address] Assigned PCP 12/05/17 09/30/19 [place] [address] [place] [address] Assigned PCP 10/01/19 03/02/20 [place] [address] [place] [address] Assigned PCP 03/03/20 05/25/20 [place] [address] [place] [address] Assigned PCP 05/26/20 09/28/20 [place] [address] [place] [address] Assigned PCP 09/29/20 07/31/22 Jesú[place] [address] [address] [place] [place] [address] Assigned Musculoskeletal Provider 10/20/20 04/17/22 Alfreda Ray PA-C [address] [place] [address] Referring Physician Family Medicine 12/31/21 Katrin Orellana PA-C [address] [address] Physician Garage Door Opener Installer Dermatology 12/31/21 Shanna Vang PA-C [address] [place] [address] 275424 Assigned Cancer Care Provider 01/10/22 Fransisco Eddy MD [address] [place] [address] 189585 Assigned Rheumatology Provider 05/09/22 [place] [address] [place] [address] Assigned Pain Medication Provider 06/29/22 09/04/22 [place] [address] [place] [address] Assigned PCP 08/15/22 08/28/22 Katrin Orellana PA-C [address] [place] [address] Assigned Surgical Provider 08/15/22 02/10/24 Cristina Hsieh [facility] [address] [facility] [place] [place] [address] Pharmacist Pharmacist 09/07/22 Alfreda Ray PA-C [address] [place] [address] Assigned Pain Medication Provider 09/05/22 09/10/23 Alfreda Ray PA-C [address] [place] [address] [id number] Assigned PCP 08/29/22 Cristina Hsieh, [facility] [address] [address] Assigned MTM Pharmacist 09/26/22 Dakota Tatum MD [address] [place] [address] 209265 Cardiovascular Disease 03/25/23 Dakota Tatum MD [address] [place] [address] 360485 Assigned Heart and Vascular Provider 05/01/23 [place] [address] [facility], [address] [address] Assigned Musculoskeletal Provider 04/12/24 documented as of this encounter
--- OUTSIDE RECORDS SUMMARY | 2024-06-22 23:17 | XMS_ITS | Encounter Summary ---
Author Organization [place] Address [address] [place] [address] Care Team Providers Care Designer And Patternmaker Name Role Phone Alfa Marcelo MD Primary Care Provider Ajay Dailey MD Primary Care Provider [phone] Esperanza Gatica MD Primary Care Provider Esperanza Gatica MD Unavailable +[phone] Esperanza Gatica MD Unavailable +[phone] Esperanza Gatica MD Unavailable +[phone] Esperanza Gatica MD Unavailable +[phone] Esperanza Gatica MD Unavailable +[phone] Esperanza Gatica MD Unavailable +[phone] Jesús Orourke MD Unavailable Alfreda Ray PA-C Primary Care Provider + Alfreda RayC Unavailable +[phone] Katrin OrellanaC Unavailable +[phone] Shanna Vang-C Unavailable +[phone] Fransisco Eddy MD Unavailable +[phone] Esperanza Gatica MD Unavailable +[phone] Esperanza Gatica MD Unavailable +[phone] Katrin OrellanaC Unavailable Cristina Hsieh [facility] Unavailable +[phone] Cory Alfreda Liu PA-C Unavailable +[phone] Cory Alfreda Liu PA-C Unavailable +[phone] Cristina Hsieh [facility] Unavailable +[phone] Dakota Tatum MD Unavailable +[phone] Dakota Tatum MD Unavailable +[phone] Srinivas Marie DO Unavailable [phone] Encounter Details Date Type Department Care Team (Late st Contact Info) Description 01/04/2008 MyC Medical Advice [address] [address] Becky Leo MD [address] [address] Social History Tobacco Use Types Packs/Day Years Used Date Smoking Tobacco: Former Cigarettes Q uit: 06/21/1973 Alcohol Use Standard Drinks/Week Comments Yes 0 (1 standard drink = 0.6 oz pur e alcohol) rarely Comments No Sex and Gender Information Value Date Recorded Sex Assigned at Female 08/17/2018 7:56 AM SUPERVISOR MAPPING Legal Sex Female 4:24 AM SUPERVISOR MAPPING Gender Identity Female 08/17/2018 7:56 AM SUPERVISOR MAPPING Sexual Orientation Straight 08/17/2018 7: 56 AM SUPERVISOR MAPPING documented as of this encounter Plan of Treatment Upcoming Encounters Date Type Department Care Team (Late st Contact Info) Description 09/07/2024 10:00 AM CDT Office Visit [facility] [address] [address] Fransisco Eddy MD [address] [place] [address] 03/29/2025 3:40 PM CDT Office Visit [address] [phone] Alfreda Ray PA-C [address] [place] [address] documented as of this encounter Visit Diagnoses Not on filedocumented in this encounter Additional Health Concerns Infection Onset Date Last Indicated Resolved Time Rule Out COVID-19 05/08/2021 05/08/2021 05/09/2021 9:08 PM SUPERVISOR MAPPING documented as of this encounter Care Teams Designer And Patternmaker Relationship Specialty Start Date End Date Alfa Marcelo MD [facility] [address] [place] [address] PCP - General 01/22/04 01/28/11 Ajay Dailey MD [facility] [address] [place] [address] PCP - General Family Practice 01/29/11 10/12/11 Esperanza Gatica MD [facility] [address] [place] [address] PCP - General Family Practice 10/13/11 12/29/21 [place] [address] [place] [address] PCP - Assigned PCP 12/05/17 08/23/18 Alfreda Ray PA-C [address] [place] [address] 450432 PCP - General Family Medicine 12/30/21 [place] [address] [address] [address] Assigned PCP 12/05/17 09/30/19 [place] [address] [address] [address] Assigned PCP 10/01/19 03/02/20 [place] [address] [address] [address] Assigned PCP 03/03/20 05/25/20 [place] [address] [address] [address] Assigned PCP 05/26/20 09/28/20 [place] [address] [address] [address] Assigned PCP 09/29/20 07/31/22 [place] [address] [place], [place] 064[address] Assigned Musculoskeletal Provider 10/20/20 04/17/22 Alfreda Ray PA-C [address] [place] [address] 636082 Referring Physician Family Medicine 12/31/21 Katrin Orellana PA-C [address] [place] [address] 056265 Physician Public Events Facilities Rental Manager Dermatology 12/31/21 Shanna Vang PA-C [address] [place] [address] Assigned Cancer Care Provider 01/10/22 Fransisco Eddy MD [address] [place] [address] 927315 Assigned Rheumatology Provider 05/09/22 [place] [address] [place] [address] Assigned Pain Medication Provider 06/29/22 09/04/22 [place] [address] [place] [address] Assigned PCP 08/15/22 08/28/22 Katrin Orellana PA-C [address] [place] [address] Assigned Surgical Provider 08/15/22 02/10/24 Cristina Hsieh [facility] [address] [place] [address] [place] [address] Pharmacist Pharmacist 09/07/22 Alfreda Ray PA-C [address] [place] [address] 608372 Assigned Pain Medication Provider 09/05/22 09/10/23 Alfreda Ray PA-C [address] [place] [address] Assigned PCP 08/29/22 Cristina Hsieh, [facility] [address] [facility] 101 [place] [address] Assigned MTM Pharmacist 09/26/22 Dakota Tatum MD [address] [place] [address] 768935 Cardiovascular Disease 03/25/23 Dakota Tatum MD [address] [place] [address] 280135 Assigned Heart and Vascular Provider 05/01/23 [place] [address] [address], [facility] [address] [place] [address] Assigned Musculoskeletal Provider 04/12/24 documented as of this encounter
--- OUTSIDE RECORDS SUMMARY | 2024-06-22 23:17 | XMS_ITS | Encounter Summary ---
Author Organization [place] Address [address] [place] [address] Care Team Providers Care High School Hvac R Instructor Name Role Phone Alfa Marcelo MD Primary Care Provider Ajay Dailey MD Primary Care Provider [phone] Esperanza Gatica MD Primary Care Provider Esperanza Gatica MD Unavailable +[phone] Esperanza Gatica MD Unavailable +[phone] Esperanza Gatica MD Unavailable +[phone] Esperanza Gatica MD Unavailable +[phone] Esperanza Gatica MD Unavailable +[phone] Esperanza Gatica MD Unavailable +[phone] Jesús Orourke MD Unavailable Alfreda Ray PA-C Primary Care Provider + Alfreda RayC Unavailable +[phone] Katrin OrellanaC Unavailable Shanna Vang-C Unavailable +[phone] Fransisco Eddy MD Unavailable +[phone] Esperanza Gatica MD Unavailable +[phone] Esperanza Gatica MD Unavailable +[phone] Katrin OrellanaC Unavailable Cristina Hsieh [facility] Unavailable +[phone] Cory Alfreda Liu PA-C Unavailable + [phone] Cory Alfreda Lui PA-C Unavailable +[phone] Cristina Hsieh [facility] Unavailable +[phone] Dakota Tatum MD Unavailable + [phone] Dakota Tatum MD Unavailable + [phone] Srinivas Marie DO Unavailable +[phone] Reason for Visit * Reason Onset Date Comments Refill Request 04/08/2009 Atenolol and Howard phong Slk Encounter Details Date Type Department Care Team (Late st Contact Info) Description 04/08/2009 MyC Refill [address] [address] Mary Haas MD Refill Request (Atenolol and Vicodin Slk) Social History Tobacco Use Types Packs/Day Years Used Date Smoking Tobacco: Former Cigarettes Q uit: 06/21/1973 Alcohol Use Standard Drinks/Week Comments Yes 0 (1 standard drink = 0.6 oz pur e alcohol) rarely Comments No Sex and Gender Information Value Date Recorded Sex Assigned at Female 08/17/2018 7:56 AM VET TECH Legal Sex Female 4:24 AM VET TECH Gender Identity Female 08/17/2018 7:56 AM VET TECH Sexual Orientation Straight 08/17/2018 7: 56 AM VET TECH documented as of this encounter Miscellaneous Notes * Telephone Encounter - Esperanza Rene - 04/09/2009 10:46 AM CDT Left message on answering machine for patient to call back. Esperanza Rene RN. * Telephone Encounter - Mary Haas - 04/09/2009 8:40 AM CDT Please call and help her schedule an appointment and then can refill 1 month of each. She should have been told previously... If you can't get a hold of her, then send back to me; will approve 2 weeks with a reminder on the script. * Telephone Encounter - Esperanza Rene - 04/08/2009 10:27 AM CDT Unable to refill Pso, not on our list and Atenolol pt was supposed to f/u in a month and didn't Last Seen: Pt was supposed to f/u in a month and didn't Last 4 Encounter BP Readings: Date BP 12/26/2008 140/62 10/16/2008 120/78 07/09/2008 140/80 04/23/2008 146/66 Rtc instructions: see above Last Filled: Vicodin 01/30/09 #60 Esperanza Rene RN. * Telephone Encounter - Esperanza Rene - 04/08/2009 10:25 AM CDTMessage from [facility]: Alexandria Bradshaw would like a refill of the following medications: ATENOLOL 25 MG OR TABS [CARISSA PAGAN] Preferred pharmacy: [facility] Comment: I have switched Doctors to Mary Haas in [place]. Thank you. documented in this encounter Plan of Treatment Upcoming Encounters Date Type Department Care Team (Late st Contact Info) Description 09/07/2024 10:00 AM CDT Office Visit [facility] [address] [address] Fransisco Eddy MD [address] [place] [address] 709145 03/29/2025 3:40 PM CDT Office Visit [address] [address] Alfreda Ray PA-C [address] [place] [address] 978262 documented as of this encounter Visit Diagnoses Diagnosis Tinnitus Unspecified tinnitus Pain in limb documented in this encounter Additional Health Concerns Infection Onset Date Last Indicated Resolved Time Rule Out COVID-19 05/08/2021 05/08/2021 05/09/2021 9:08 PM VET TECH documented as of this encounter Care Teams High School Hvac R Instructor Relationship Specialty Start Date End Date Alfa Mareclo MD [facility] [address] [place] [address] PCP - General 01/22/04 01/28/11 Ajay Dailey MD [address] [place] [address] PCP - General Family Practice 01/29/11 10/12/11 Esperanza Gatica MD [address] [address] PCP - General Family Practice 10/13/11 12/29/21 [place] [address] [place] [address] PCP - Assigned PCP 12/05/17 08/23/18 Alfreda Ray PA-C [address] [place] [address] PCP - General Family Medicine 12/30/21 [place] [address] [place] [address] Assigned PCP 12/05/17 09/30/19 [place] [address] [place] [address] Assigned PCP 10/01/19 03/02/20 [place] [address] [place] [address] Assigned PCP 03/03/20 05/25/20 [place] [address] [place] [address] Assigned PCP 05/26/20 09/28/20 [place] [address] [place] [address] Assigned PCP 09/29/20 07/31/22 Jesú[place] [address] [place] [place] [address] Assigned Musculoskeletal Provider 10/20/20 04/17/22 Alfreda Ray PA-C [address] [place] [address] 258132 Referring Physician Family Medicine 12/31/21 Katrin Orellana PA-C [address] [facility] 98 [place] [address] Physician Marine Structural Welder Dermatology 12/31/21 Shanna Vang PA-C [address] [place] [address] Assigned Cancer Care Provider 01/10/22 Fransisco Eddy MD [address] [place] [address] 88 [place] [address] Assigned Rheumatology Provider 05/09/22 [place] [address] [place] [address] Assigned Pain Medication Provider 06/29/22 09/04/22 [place] [address] [place] [address] Assigned PCP 08/15/22 08/28/22 Katrin Orellana PA-C [address] [place] [address] 98 [place] [address] Assigned Surgical Provider 08/15/22 02/10/24 Cristina Hsieh [facility] [address] [facility] [place] [address] Pharmacist Pharmacist 09/07/22 Alfreda Ray PA-C [address] [place] [address] 234092 Assigned Pain Medication Provider 09/05/22 09/10/23 Alfreda Ray PA-C [address] [place] [address] Assigned PCP 08/29/22 Cristina Hsieh, [facility] [address] [facility] 101 [place] [address] Assigned MTM Pharmacist 09/26/22 Dakota Tatum MD [address] [place] [address] 403885 Cardiovascular Disease 03/25/23 Dakota Tatum MD [address] [place] [address] 352955 Assigned Heart and Vascular Provider 05/01/23 [place] [address] [address], [facility] 300 [place] [address] Assigned Musculoskeletal Provider 04/12/24 documented as of this encounter
--- OUTSIDE RECORDS SUMMARY | 2024-06-22 23:17 | XMS_ITS | Encounter Summary ---
Author Organization [place] Address [address] [place] [address] Care Team Providers Care Black Top Raker Name Role Phone Alfa Marcelo MD Primary Care Provider Ajay Dailey MD Primary Care Provider [phone] Esperanza Gatica MD Primary Care Provider Esperanza Gatica MD Unavailable +[phone] Esperanza Gatica MD Unavailable +[phone] Esperanza Gatica MD Unavailable +[phone] Esperanza Gatica MD Unavailable +[phone] Esperanza Gatica MD Unavailable +[phone] Esperanza Gatica MD Unavailable +[phone] Jesús Orourke MD Unavailable Alfreda Ray PA-C Primary Care Provider + Alfreda RayC Unavailable +[phone] Katrin OrellanaC Unavailable Shanna Vang-C Unavailable +[phone] Fransisco Eddy MD Unavailable +[phone] Esperanza Gatica MD Unavailable +[phone] Esperanza Gatica MD Unavailable +[phone] Katrin Orellana PA-C Unavailable +[phone] Cristina Hsieh [facility] Unavailable +[phone] Cory Alfreda Liu PA-C Unavailable +[phone] Cory Alfreda Liu PA-C Unavailable +[phone] Cristina Hsieh [facility] Unavailable +[phone] Dakota Tatum MD Unavailable +[phone] Dakota Tatum MD Unavailable +[phone] Srinivas Marie DO Unavailable [phone] Reason for Visit * Reason Onset Date Comments MyChart Communication 10/02/2009 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 Social History Tobacco Use Types Packs/Day Years Used Date Smoking Tobacco: Former Cigarettes Q uit: 06/21/1973 Alcohol Use Standard Drinks/Week Comments Yes 0 (1 standard drink = 0.6 oz pur e alcohol) rarely Comments No Sex and Gender Information Value Date Recorded Sex Assigned at Female 08/17/2018 7:56 AM BASE BRANDER Legal Sex Female 4:24 AM BASE BRANDER Gender Identity Female 08/17/2018 7:56 AM BASE BRANDER Sexual Orientation Straight 08/17/2018 7: 56 AM BASE BRANDER documented as of this encounter Plan of Treatment Upcoming Encounters Date Type Department Care Team (Late st Contact Info) Description 09/07/2024 10:00 AM CDT Office Visit [facility]ty [address] [address] Fransisco Eddy MD [address] [place] [address] 03/29/2025 3:40 PM CDT Office Visit [address] [address] Alfreda Ray PA-C [address] [place] [place] [address] 743842 documented as of this encounter Visit Diagnoses Not on filedocumented in this encounter Additional Health Concerns Infection Onset Date Last Indicated Resolved Time Rule Out COVID-05/08/2021 05/08/2021 05/09/2021 9:08 PM BASE BRANDER documented as of this encounter Care Teams Black Top Raker Relationship Specialty Start Date End Date Alfa Marcelo MD [address] [address] PCP - General 01/22/04 01/28/11 Ajay Dailey MD [address] [address] PCP - General Family Practice 01/29/11 10/12/11 Esperanza Gatica MD [address] [facility] 200 [place] [address] PCP - General Family Practice 10/13/11 12/29/21 [place] [address] [place] [address] PCP - Assigned PCP 12/05/17 08/23/18 Alfreda Ray PA-C [address] [place] [place] [address] PCP - General Family Medicine 12/30/21 [place] [address] [place] [address] Assigned PCP 12/05/17 09/30/19 [place] [address] [place] [address] Assigned PCP 10/01/19 03/02/20 [place] [address] [place] [address] Assigned PCP 03/03/20 05/25/20 [place] [address] [place] [address] Assigned PCP 05/26/20 09/28/20 [place] [address] [place] [address] Assigned PCP 09/29/20 07/31/22 Jesú[place] [address] [place] [address] Assigned Musculoskeletal Provider 10/20/20 04/17/22 Alfreda Ray PA-C [address] [place] [place] [address] Referring Physician Family Medicine 12/31/21 Katrin Orellana PA-C [address] [address] Physician Nurse Executive Dermatology 12/31/21 Shanna Vang PA-C [address] [place] [address] 197344 Assigned Cancer Care Provider 01/10/22 Fransisco Eddy MD [address] [place] [address] 099745 Assigned Rheumatology Provider 05/09/22 [place] [address] [place] [address] Assigned Pain Medication Provider 06/29/22 09/04/22 [place] [address] [place] [address] Assigned PCP 08/15/22 08/28/22 Katrin Orellana PA-C [address] [place] [address] Assigned Surgical Provider 08/15/22 02/10/24 Cristina Hsieh [facility] [address] [facility] [place] [address] Pharmacist Pharmacist 09/07/22 Alfreda Ray PA-C [address] [place] [place] [address] Assigned Pain Medication Provider 09/05/22 09/10/23 Alfreda Ray PA-C [address] [place] [address] 855892 Assigned PCP 08/29/22 Cristina Hsieh, [facility] [address] [address] Assigned MTM Pharmacist 09/26/22 Dakota Tatum MD [address] [place] [address] 263945 Cardiovascular Disease 03/25/23 Dakota Tatum MD [address] [place] [address] 544305 Assigned Heart and Vascular Provider 05/01/23 [place] [address] [place] , [address] [address] Assigned Musculoskeletal Provider 04/12/24 documented as of this encounter
--- OUTSIDE RECORDS SUMMARY | 2024-06-22 23:17 | XMS_ITS | Encounter Summary ---
Author Organization [place] Address [address] [place] [address] Care Team Providers Care Rotary Drum Tanner Name Role Phone Alfa Marcelo MD Primary Care Provider Ajay Dailey MD Primary Care Provider [phone] Esperanza Gatica MD Primary Care Provider Esperanza Gatica MD Unavailable +[phone] Esperanza Gatica MD Unavailable +[phone] Esperanza Gatica MD Unavailable +[phone] Esperanza Gatica MD Unavailable +[phone] Esperanza Gatica MD Unavailable +[phone] Esperanza Gatica MD Unavailable +[phone] Jesús Orourke MD Unavailable Alfreda Ray PA-C Primary Care Provider + Alfreda RayC Unavailable +[phone] Katrin OrellanaC Unavailable Shanna Vang-C Unavailable +[phone] Fransisco Eddy MD Unavailable +[phone] Esperanza Gatica MD Unavailable +[phone] Esperanza Gatica MD Unavailable +[phone] Katrin OrellanaC Unavailable +[phone] Cristina Hsieh [facility] Unavailable +[phone] Cory Alfreda Liu PA-C Unavailable +[phone] Cory Alfreda Liu PA-C Unavailable +[phone] Cristina Hsieh [facility] Unavailable +[phone] Dakota Tatum MD Unavailable +[phone] Dakota Tatum MD Unavailable +[phone] Srinivas Marie DO Unavailable Encounter Details Date Type Department Care Team (Late st Contact Info) Description 11/03/[address] [address] Becky Leo MD [facility] [address] [address] [facility] Note Social History Tobacco Use Types Packs/Day Years [...] Sex Assigned at Female 08/17/2018 7:56 AM STOKER INSTALLATION MECHANIC Legal Sex Female 4:24 AM STOKER INSTALLATION MECHANIC Gender Identity Female 08/17/2018 7:56 AM STOKER INSTALLATION MECHANIC Sexual Orientation Straight 08/17/2018 7: 56 AM STOKER INSTALLATION MECHANIC documented as of this encounter Plan of Treatment Upcoming Encounters Date Type Department Care Team (Late st Contact Info) Description 09/07/2024 10:00 AM CDT Office Visit [address] 200 [place] [phone] Fransisco Eddy MD [address] [place] [address] 03/29/2025 3:40 PM CDT Office Visit [facility] [address] [place] [phone] Alfreda Ray PA-C [address] [place] [address] 230592 documented as of this encounter Visit Diagnoses Diagnosis [facility]ER Note- Primary documented in this encounter Additional Health Concerns Infection Onset Date Last Indicated Resolved Time Rule Out COVID-19 05/08/2021 05/08/2021 05/09/2021 9:08 PM STOKER INSTALLATION MECHANIC documented as of this encounter Care Teams Rotary Drum Tanner Relationship Specialty Start Date End Date Alfa Marcelo MD [address] [address] PCP - General 01/22/04 01/28/11 Ajay Dailey MD [address] [address] PCP - General Family Practice 01/29/11 10/12/11 Esperanza Gatica MD [address] [address] PCP - General Family Practice 10/13/11 12/29/21 [place] [address] [place] [address] PCP - Assigned PCP 12/05/17 08/23/18 Alfreda Ray PA-C [address] [place] [address] PCP - General Family Medicine 12/30/21 [place] [address] [place] [address] Assigned PCP 12/05/17 09/30/19 [place] [address] [place] [address] Assigned PCP 10/01/19 03/02/20 [place] [address] [address] [place] [address] Assigned PCP 03/03/20 05/25/20 [place] [address] [address] [place] [address] Assigned PCP 05/26/20 09/28/20 [place] [address] [place] [address] Assigned PCP 09/29/20 07/31/22 Jesú[place] [address] [place] [address] Assigned Musculoskeletal Provider 10/20/20 04/17/22 Alfreda Ray PA-C [address] [place] [address] Referring Physician Family Medicine 12/31/21 Katrin Orellana PA-C [address] [address] Physician Radiation Control Health Physicist Dermatology 12/31/21 Shanna Vang PA-C [address] [address] Assigned Cancer Care Provider 01/10/22 Fransisco Eddy MD [address] [place] [address] 818995 Assigned Rheumatology Provider 05/09/22 [place] [address] [place] [address] Assigned Pain Medication Provider 06/29/22 09/04/22 [place] [address] [address] [address] Assigned PCP 08/15/22 08/28/22 Katrin Orellana PA-C [address] [place] [address] Assigned Surgical Provider 08/15/22 02/10/24 Cristina Hsieh [facility] 3[address] [facility] [place] [address] Pharmacist Pharmacist 09/07/22 Alfreda Ray PA-C [address] [place] [address] Assigned Pain Medication Provider 09/05/22 09/10/23 Alfreda Ray PA-C [address] [place] [address] Assigned PCP 08/29/22 Cristnia Hsieh [facility] 1600 [facility] 101 [place] [address] Assigned MTM Pharmacist 09/26/22 Dakota Tatum MD [address] [place] [address] 338045 Cardiovascular Disease 03/25/23 Dakota Tatum MD [address] [place] [address] 174485 Assigned Heart and Vascular Provider 05/01/23 [place] [address] [address], [facility] [address] [place] [address] Assigned Musculoskeletal Provider 04/12/24 documented as of this encounter
--- NOTE | 2024-06-22 23:38 | ED.AMS ---
HPI - Altered Mental Status General Chief Complaint: Altered Mental Status <Serge Galvan MD - Last Filed: 06/22/24 23:41> Stated Complaint: Fall, hit head, brain fog, uti <Serge Galvan MD - Last Filed: 06/22/24 23:41> Time Seen by Provider: 06/22/24 23:33 <Serge Galvan MD - Last Filed: 06/22/24 23:41> History of Present Illness HPI narrative: Patient is an 84-year-old woman who is normally in good health. She stumbled and fell yesterday striking the front of her head. She got up and acting normally until this evening approximately 3 hours ago which point she developed increasing confusion and difficulty ambulating. She has had no focal neurologic defects. She does present with a fever of 100.4 and is currently being treated for a bladder infection with Bactrim. Patient has had no chest pain no shortness of breath no cough no nausea no vomiting. She is disoriented to everything except for person at this point. She is brought in by her who is very concerned. She has had no skin breakdown. She has no signs of acute gastroenteritis. Minimal symptoms of urinary tract infection such as dysuria and urinary frequency at this point. <Serge Galvan MD - Last Filed: 06/22/24 23:41> Related Data Home Medications: Home Medications ?Medication ?Instructions ?Recorded ?Confirmed atenolol 25 mg tablet 25 mg PO DAILY 06/22/24 06/22/24 cefpodoxime 200 mg tablet 200 mg PO BID 06/22/24 06/22/24 duloxetine 60 mg capsule,delayed 60 mg PO QPM 06/22/24 06/22/24 release gabapentin 300 mg capsule mg PO 06/22/24 lisinopril 10 1 tab PO DAILY 06/22/24 06/22/24 mg-hydrochlorothiazide 12.5 mg tablet naltrexone 50 mg tablet PO 06/22/24 prednisone 1 mg tablet mg PO 06/22/24 rivaroxaban 10 mg tablet (Xarelto) 10 mg PO DAILY 06/22/24 06/22/24 simvastatin 20 mg tablet 20 mg PO QPM 06/22/24 06/22/24 sulfamethoxazole 800 1 tab PO BID 06/22/24 06/22/24 mg-trimethoprim 160 mg tablet temazepam 7.5 mg capsule mg PO 06/22/24 upadacitinib 15 mg tablet,extended 15 mg PO DAILY 06/22/24 06/22/24 release 24 hr (Rinvoq) <Serge Galvan MD - Last Filed: 06/22/24 23:41> Allergies/Adverse Reactions: Allergies Allergy/AdvReac Type Severity Reaction Status Date / Time No Known Drug Allergies Allergy Verified 06/22/24 23:16 <Serge Galvan MD - Last Filed: 06/22/24 23:41> Review of Systems Status of ROS: Reports: unobtainable due to mental status <Serge Galvan MD - Last Filed: 06/22/24 23:41> [facility] Social History: Social History Non-prescribed substance use: denies use <Serge Galvan MD - Last Filed: 06/22/24 23:41> Exam Narrative: Exam Narrative: EXAM GENERAL: Patient appears disoriented febrile with repetitive pursing of her lips. EYES: No scleral icterus. LYMPH: No supraclavicular or cervical lymphadenopathy. SKIN: Visible skin seen during exam normal or with benign process only. EXT: No dependent lower extremity pedal edema. HEART: Regular rate and rhythm with no murmurs, rubs, or gallops. LUNGS: Clear to auscultation bilaterally with no crackles or wheezes. ABD: Soft, non tender, non distended. PSYCH: Good eye contact, speech is not pressured. <Serge Galvan MD - Last Filed: 06/22/24 23:41> Const: Vital Signs, click to edit/add: Vital Signs - 24 hr 06/22/24 23:10 06/23/24 00:45 06/23/24 02:13 Temperature 100.4 F H 99.1 F Pulse Rate 65 67 Pulse Rate [Pulse Oximeter] 75 Respiratory Rate 16 16 16 Blood Pressure 145/57 H 135/60 Blood Pressure [Ri ght Upper Arm] 181/73 H Pulse Oximetry 96 95 95 Oxygen Delivery Me thod Room Air Room Air 06/23/24 04:14 Temperature 99 F Pulse Rate Pulse Rate [Pulse Oximeter] 72 Respiratory Rate 16 Blood Pressure Blood Pressure [Ri ght Upper Arm] 146/60 H Pulse Oximetry 93 Oxygen Delivery Me thod Room Air <Serge Galvan MD - Last Filed: 06/22/24 23:41> Vital Signs, click to edit/add: Vital Signs - 24 hr 06/22/24 23:10 06/23/24 00:45 06/23/24 02:13 Temperature 100.4 F H 99.1 F Pulse Rate 65 67 Pulse Rate [Pulse Oximeter] 75 Respiratory Rate 16 16 16 Blood Pressure 145/57 H 135/60 Blood Pressure [Ri ght Upper Arm] 181/73 H Pulse Oximetry 96 95 95 Oxygen Delivery Me thod Room Air Room Air 06/23/24 04:14 Temperature 99 F Pulse Rate Pulse Rate [Pulse Oximeter] 72 Respiratory Rate 16 Blood Pressure Blood Pressure [Ri ght Upper Arm] 146/60 H Pulse Oximetry 93 Oxygen Delivery Me thod Room Air <Kana Estevez DO - Last Filed: 06/23/24 04:36> Course Course ED Course: Patient seen and examined. Blood cultures collected. Lactate pending. CBC comprehensive metabolic panel UA ordered. Chest x-ray CT head and neck pending. <Serge Galvan MD - Last Filed: 06/22/24 23:41> Vital Signs Vital signs: Initial Vital Signs Temperature 100.4 F H 06/22/24 23:10 Temperature Source Oral 06/22/24 23:10 Pulse Rate 75 06/22/24 23:10 Respiratory Rate 16 06/22/24 23:10 Blood Pressure 181/73 H 06/22/24 23:10 Blood Pressure Mean 109 H 06/22/24 23:10 Blood Pressure Position Supine 06/22/24 23:10 Pulse Oximetry 96 06/22/24 23:10 Oxygen Delivery Method Room Air 06/22/24 23:10 Vital Signs Temperature 100.4 F H 06/22/24 23:10 Pulse Rate 75 06/22/24 23:10 Respiratory Rate 16 06/22/24 23:10 Blood Pressure 181/73 H 06/22/24 23:10 Pulse Oximetry 96 06/22/24 23:10 Oxygen Delivery Method Room Air 06/22/24 23:10 Temperature 99 F 06/23/24 04:14 Pulse Rate 72 06/23/24 04:14 Respiratory Rate 16 06/23/24 04:14 Blood Pressure 146/60 H 06/23/24 04:14 Pulse Oximetry 93 06/23/24 04:14 Oxygen Delivery Method Room Air 06/23/24 04:14 <Serge Galvan MD - Last Filed: 06/22/24 23:41> Initial Vital Signs Temperature 100.4 F H 06/22/24 23:10 Temperature Source Oral 06/22/24 23:10 Pulse Rate 75 06/22/24 23:10 Respiratory Rate 16 06/22/24 23:10 Blood Pressure 181/73 H 06/22/24 23:10 Blood Pressure Mean 109 H 06/22/24 23:10 Blood Pressure Position Supine 06/22/24 23:10 Pulse Oximetry 96 06/22/24 23:10 Oxygen Delivery Method Room Air 06/22/24 23:10 Vital Signs Temperature 100.4 F H 06/22/24 23:10 Pulse Rate 75 06/22/24 23:10 Respiratory Rate 16 06/22/24 23:10 Blood Pressure 181/73 H 06/22/24 23:10 Pulse Oximetry 96 06/22/24 23:10 Oxygen Delivery Method Room Air 06/22/24 23:10 Temperature 99 F 06/23/24 04:14 Pulse Rate 72 06/23/24 04:14 Respiratory Rate 16 06/23/24 04:14 Blood Pressure 146/60 H 06/23/24 04:14 Pulse Oximetry 93 06/23/24 04:14 Oxygen Delivery Method Room Air 06/23/24 04:14 <Kana Estevez DO - Last Filed: 06/23/24 04:36> Medications Administered Medications: Discontinued Medications Generic Name Dose Route Start Last Admin Trade Name Freq PRN Reason Stop Dose Admin Acetaminophen 650 mg 06/23/24 00:17 06/23/24 00:34 Acetaminophen 325 Mg Tablet PO 06/23/24 00:18 650 mg ONCE ONE Administration Sodium Chloride 1,000 mls @ 1,000 mls/hr 06/23/24 00:30 06/23/24 01:39 0.9 % Sodium Chloride 1000 Ml IV 06/23/24 01:29 Infused .Q1H JOSUE Infusion <Serge Galvan MD - Last Filed: 06/22/24 23:41> Discontinued Medications Generic Name Dose Route Start Last Admin Trade Name Gerson PRN Reason Stop Dose Admin Acetaminophen 650 mg 06/23/24 00:17 06/23/24 00:34 Acetaminophen 325 Mg Tablet PO 06/23/24 00:18 650 mg ONCE ONE Administration Sodium Chloride 1,000 mls @ 1,000 mls/hr 06/23/24 00:30 06/23/24 01:39 0.9 % Sodium Chloride 1000 Ml IV 06/23/24 01:29 Infused .Q1H JOSUE Infusion <Kana Estevez, - Last Filed: 06/23/24 04:36> MDM - Altered Mental Status MDM Narrative Medical decision making narrative: Patient signed out to me pending imaging and the rest of her lab work. CBC, CMP, lactate, procalcitonin all showed no concerning abnormalities. She is COVID positive and this is likely the cause of her symptoms. She does have some mild confusion but does seem like her were symptoms are her profound weakness. She is having a lot of issue getting out of bed even with help. Nursing staff had quite of bit of difficulty just getting her out of the car. Urinalysis shows no clear signs of UTI. She has been on both 7 pull docs cm and Bactrim over the past week for her UTI. Chest x-ray reviewed myself and the radiologist shows no acute concerning abnormalities. CT of the cervical spine shows no acute concerning abnormalities. On the CT scan of the head Radiology did note a focal hypodensity in the right frontal white matter. They do not have a comparison. Does recommend a contrast enhanced MRI. I spoke to Dr. Toribio directly and he states this can be done inpatient when available and does not need to be done immediately. Does not appear to be acute. I did speak to the [facility] hospitalist who would like a neurosurgery consult prior to admission. I spoke to Dr. Villalba of [facility] [place] Neurosurgery [facility]. She reviewed the CT scan and did not see anything concerning. She thinks that area the radiologist may have been talking about is an old stroke. Patient is accepted for admission. <Kana Estevez DO - Last Filed: 06/23/24 04:36> Lab Data Labs: Lab Results 06/22/24 06/23/24 06/23/24 Range/Units 23:31 00:08 01:30 WBC 10.77 (4.50-11.00) K/uL RBC 3.35 L (4.00-5.20) m/uL Hgb 11.4 L (12.0-16.0) gm/dL Hct 34.6 (33.0-51.0) % MCV 103 H (80-100) fL MCH 34 (26-34) pg MCHC 33 (32-36) gm/dL RDW Coeff of Rowan 13.4 (11.5-15.5) % Plt Count 229 (140-440) K/uL Neut % (Auto) 91.1 H (42.0-72.0) % Lymph % (Auto) 2.8 L (20-44) % Walton % (Auto) 4.9 (0.0-11.0) % Eos % (Auto) 0.0 (0.0-7.0) % Baso % (Auto) 0.1 (0.0-3.0) % Neut # (Auto) 9.80 H (1.7-7.0) K/uL Lymph # (Auto) 0.30 L (0.90-2.90) K/uL Walton # (Auto) 0.50 (0.00-0.90) K/UL Eos # (Auto) 0.00 (0.00-0.50) K/uL Baso # (Auto) 0.01 (0.00-0.30) K/uL Abs Immat Gran (auto) 0.12 (0.00-0.30) K/uL Imm/Tot Granulo (auto) 1.1 % Sodium 133 L (135-149) mmol/L Potassium 4.4 (3.6-5.1) mmol/L Chloride 103 (96-114) mmol/L Carbon Dioxide 22 (20-32) mmol/L Anion Gap 8 (7-15) mEq/L BUN 22 (7-30) mg/dL Creatinine 1.3 (0.5-1.5) mg/dL Estimated Creat Clear 26.39 Estimated GFR 41 ml/min Glucose 147 H (60-115) mg/dL Lactate 1.6 (0.5-1.9) mmol/L Calcium 9.3 (8.4-10.6) mg/dL Total Bilirubin 0.9 (0.1-1.5) mg/dL AST 24 (12-35) U/L ALT 17 (4-35) U/L Alkaline Phosphatase 40 (40-150) U/L Total Protein 6.9 (6.0-8.3) g/dL Albumin 4.6 (3.3-5.0) g/dL Procalcitonin 0.16 (<0.50) ng/mL Urine Color Yellow (Yellow) Urine Appearance Clear (Clear) Urine pH 5.5 (5.0-8.5) Ur Specific Rudolph >= 1.030 (1.000-1.030) Urine Protein Trace A (Negative) Urine Glucose (UA) Negative (Negative) Urine Ketones Trace A (Negative) Urine Blood Trace-lysed A (Negative) Urine Nitrite Negative (Negative) Urine Bilirubin Negative (Negative) Urine Urobilinogen 0.2 (0.2-1.0) Ur Leukocyte Esterase 1+ A (Negative) Urine RBC 0-2 (0-2) Urine WBC 2-5 (0-5) Ur Squamous Epith Cells Moderate A (None-Few) Urine Bacteria Few A (None) SARS-CoV-2 (PCR) POSITIVE SARS-CoV-2 A (Negative) Influenza Type A (PCR) Negative PCR FLU A (Negative) Influenza Type B (PCR) Negative PCR FLU B (Negative) RSV (PCR) Negative PCR RSV (Negative) <Serge Galvan MD - Last Filed: 06/22/24 23:41> Lab Results 06/22/24 06/23/24 06/23/24 Range/Units 23:31 00:08 01:30 WBC 10.77 (4.50-11.00) K/uL RBC 3.35 L (4.00-5.20) m/uL Hgb 11.4 L (12.0-16.0) gm/dL Hct 34.6 (33.0-51.0) % MCV 103 H (80-100) fL MCH 34 (26-34) pg MCHC 33 (32-36) gm/dL RDW Coeff of Rowan 13.4 (11.5-15.5) % Plt Count 229 (140-440) K/uL Neut % (Auto) 91.1 H (42.0-72.0) % Lymph % (Auto) 2.8 L (20-44) % Walton % (Auto) 4.9 (0.0-11.0) % Eos % (Auto) 0.0 (0.0-7.0) % Baso % (Auto) 0.1 (0.0-3.0) % Neut # (Auto) 9.80 H (1.7-7.0) K/uL Lymph # (Auto) 0.30 L (0.90-2.90) K/uL Walton # (Auto) 0.50 (0.00-0.90) K/UL Eos # (Auto) 0.00 (0.00-0.50) K/uL Baso # (Auto) 0.01 (0.00-0.30) K/uL Abs Immat Gran (auto) 0.12 (0.00-0.30) K/uL Imm/Tot Granulo (auto) 1.1 % Sodium 133 L (135-149) mmol/L Potassium 4.4 (3.6-5.1) mmol/L Chloride 103 (96-114) mmol/L Carbon Dioxide 22 (20-32) mmol/L Anion Gap 8 (7-15) mEq/L BUN 22 (7-30) mg/dL Creatinine 1.3 (0.5-1.5) mg/dL Estimated Creat Clear 26.39 Estimated GFR 41 ml/min Glucose 147 H (60-115) mg/dL Lactate 1.6 (0.5-1.9) mmol/L Calcium 9.3 (8.4-10.6) mg/dL Total Bilirubin 0.9 (0.1-1.5) mg/dL AST 24 (12-35) U/L ALT 17 (4-35) U/L Alkaline Phosphatase 40 (40-150) U/L Total Protein 6.9 (6.0-8.3) g/dL Albumin 4.6 (3.3-5.0) g/dL Procalcitonin 0.16 (<0.50) ng/mL Urine Color Yellow (Yellow) Urine Appearance Clear (Clear) Urine pH 5.5 (5.0-8.5) Ur Specific Rudolph >= 1.030 (1.000-1.030) Urine Protein Trace A (Negative) Urine Glucose (UA) Negative (Negative) Urine Ketones Trace A (Negative) Urine Blood Trace-lysed A (Negative) Urine Nitrite Negative (Negative) Urine Bilirubin Negative (Negative) Urine Urobilinogen 0.2 (0.2-1.0) Ur Leukocyte Esterase 1+ A (Negative) Urine RBC 0-2 (0-2) Urine WBC 2-5 (0-5) Ur Squamous Epith Cells Moderate A (None-Few) Urine Bacteria Few A (None) SARS-CoV-2 (PCR) POSITIVE SARS-CoV-2 A (Negative) Influenza Type A (PCR) Negative PCR FLU A (Negative) Influenza Type B (PCR) Negative PCR FLU B (Negative) RSV (PCR) Negative PCR RSV (Negative) <Kana Estevez, DO - Last Filed: 06/23/24 04:36> Imaging Data Chest x-ray: Attestation: I have reviewed the pertinent imaging results. <Kana Estevez DO - Last Filed: 06/23/24 04:36> Radiologist's impression: No acute cardiopulmonary process identified. Dictated by Cami Mcwilliams MD @ 06/23/2024 1:44:41 AM <Kana Estevez DO - Last Filed: 06/23/24 04:36> CT scan - head: Attestation: I have reviewed the pertinent imaging results. <Kana Estevez DO - Last Filed: 06/23/24 04:36> Radiologist's impression: 1. Mild motion degradation. No acute abnormality appreciated. 2. On a background of severe chronic white matter disease, there is a more focal region of hypodensity in the right frontal white matter which abuts but does not appear to involve the overlying cortex. This is indeterminate, and no prior examinations available for comparison. Consider contrast-enhanced MRI for further characterization. Please note that all CT scans at this facility use dose modulation, iterative reconstruction, and/or weight-based dosing when appropriate to reduce radiation dose to as low as reasonably achievable. Dictated by Donte Toribio MD @ 06/23/2024 1:20:55 AM <Kana Estevez DO - Last Filed: 06/23/24 04:36> CT scan cervical spine: Attestation: I have reviewed the pertinent imaging results. <Kana Estevez DO - Last Filed: 06/23/24 04:36> Radiologist's impression: No acute abnormality appreciated. Please note that all CT scans at this facility use dose modulation, iterative reconstruction, and/or weight-based dosing when appropriate to reduce radiation dose to as low as reasonably achievable. Dictated by Donte Toribio MD @ 06/23/2024 1:21:55 AM <Kana Estevez DO - Last Filed: 06/23/24 04:36> ECG Data Attestation: I personally reviewed and interpreted this ECG as follows: <Kana Estevez DO - Last Filed: 06/23/24 04:36> Prior ECG tracings: not available for review <Kana Estevez DO - Last Filed: 06/23/24 04:36> Interpretation: Normal sinus rhythm with rate of 78 beats per minute, normal intervals, normal axis, no ST or T-wave abnormalities. <Kana Estevez DO - Last Filed: 06/23/24 04:36> Discharge Plan Discharge Clinical Impression: COVID, Weakness <Serge Galvan MD - Last Filed: 06/22/24 23:41> Patient Disposition: Admitted As Observation <Serge Galvan MD - Last Filed: 06/22/24 23:41> Condition: Stable <Serge Galvan MD - Last Filed: 06/22/24 23:41>
--- NOTE | 2024-06-22 23:41 | CRLHL7_ITS ---
For Patients: As a result of the Century Cures Act, medical imaging exams and procedure reports are released immediately into your electronic medical record. You may view this report before your referring provider. If you have questions, please contact your health care provider. Indication: Fall Technique: Noncontrast CT through the cervical spine with multiplanar reformats Comparison: None Findings: Alignment: No acute malalignment appreciated. Bones: No acute fracture. No lytic or blastic lesion. Cervical levels: No acute abnormality appreciated. Mild spondylosis. Soft tissues: No acute abnormality appreciated. Impression: No acute abnormality appreciated. Please note that all CT scans at this facility use dose modulation, iterative reconstruction, and/or weight-based dosing when appropriate to reduce radiation dose to as low as reasonably achievable. Dictated by Donte Toribio MD @ 06/23/2024 1:21:55 AM (Electronically Signed)
--- NOTE | 2024-06-22 23:41 | CRLHL7_ITS ---
For Patients: As a result of the Cures Act, medical imaging exams and procedure reports are released immediately into your electronic medical record. You may view this report before your referring provider. If you have questions, please contact your health care provider. INDICATION: Fever. TECHNIQUE: Chest 1 views. COMPARISON: None. FINDINGS: Cardiovascular and mediastinum: Cardiomediastinal silhouette is within normal limits. Lungs and pleural spaces: Lungs are clear. No sign of pleural effusion. No pneumothorax. Bones and soft tissues: No significant findings. IMPRESSION: No acute cardiopulmonary process identified. Dictated by Cami Mcwilliams MD @ 06/23/2024 1:44:41 AM (Electronically Signed)
--- NOTE | 2024-06-22 23:41 | CRLHL7_ITS ---
For Patients: As a result of the Century Cures Act, medical imaging exams and procedure reports are released immediately into your electronic medical record. You may view this report before your referring provider. If you have questions, please contact your health care provider. Indication: Fall Technique: Noncontrast CT through the head with multiplanar reformats Comparison: None Findings: Mild motion degradation. Brain: No acute hemorrhage. No acute infarct. No significant mass effect or midline shift. No gross evidence of a mass lesion or cerebral edema. Severe chronic microvascular ischemic disease. Mild global parenchymal volume loss. Focal white matter disease in the right frontal lobe immediately abutting but not involving the overlying cortex. Ventricles: No acute abnormality appreciated. Orbits, sinuses, mastoids: No acute abnormality appreciated. Calvarium and soft tissues: No acute abnormality appreciated. Impression: 1. Mild motion degradation. No acute abnormality appreciated. 2. On a background of severe chronic white matter disease, there is a more focal region of hypodensity in the right frontal white matter which abuts but does not appear to involve the overlying cortex. This is indeterminate, and no prior examinations available for comparison. Consider contrast-enhanced MRI for further characterization. Please note that all CT scans at this facility use dose modulation, iterative reconstruction, and/or weight-based dosing when appropriate to reduce radiation dose to as low as reasonably achievable. Dictated by Donte Toribio MD @ 06/23/2024 1:20:55 AM (Electronically Signed)
[2024-06-22 23:49] LABS: Basophils Absolute Auto 0.01 K/uL (0.00-0.30); Basophils Percent Auto 0.1 % (0.0-3.0); Hematocrit 34.6 % (33.0-51.0); Hemoglobin* 11.4 gm/dL (12.0-16.0); Immature Granulocytes Abs Auto 0.12 K/uL (0.00-0.30); Immature Granulocytes Pct Auto 1.1 %; Lymphocytes Percent Auto 2.8 % (20-44); Mean Corpuscular HGB Conc 33 gm/dL (32-36); Mean Corpuscular Hemoglobin 34 pg (26-34); Mean Corpuscular Volume 103 fL (80-100); Monocytes Percent Auto 4.9 % (0.0-11.0); Neutrophils Percent Auto 91.1 % (42.0-72.0); Platelet Count* 229 K/uL (140-440); RDW Coefficient of Variation % 13.4 % (11.5-15.5); Red Blood Count 3.35 m/uL (4.00-5.20); White Blood Count* 10.77 K/uL (4.50-11.00)
[2024-06-22 23:55] LABS: Lactate* 1.6 mmol/L (0.5-1.9); Slide Review Reflex No
[2024-06-22 23:59] LABS: Albumin* 4.6 g/dL (3.3-5.0)
[2024-06-23] VITALS (14 sets, daily range): BP systolic 135–161; BP diastolic 57–63; PULSE 62–78; RESP 16–20; TEMP 37.1–38.5; O2SAT 92–98; BMI 38.1
[2024-06-23] LABS: Chloride* 103 mmol/L (96-114); Potassium* 4.4 mmol/L (3.6-5.1); Sodium* 133 mmol/L (135-149)
[2024-06-23 00:02] LABS: Anion Gap 8 mEq/L (7-15); Aspartate Amino Transferase* 24 U/L (12-35); Bilirubin Total* 0.9 mg/dL (0.1-1.5); Carbon Dioxide* 22 mmol/L (20-32); Creatinine* 1.3 mg/dL (0.5-1.5); Est. Creatinine Clearance* 26.39; Estimated Glomerular Filt Rate 41 ml/min; Total Protein* 6.9 g/dL (6.0-8.3)
[2024-06-23 00:03] LABS: Alanine Aminotransferase* 17 U/L (4-35); Alkaline Phosphatase* 40 U/L (40-150); Blood Urea Nitrogen* 22 mg/dL (7-30); Calcium* 9.3 mg/dL (8.4-10.6); Glucose* 147 mg/dL (60-115)
--- OUTSIDE RECORDS SUMMARY | 2024-06-23 00:17 | XMS_ITS | Clinical Summary ---
Author Organization [facility] Address [address] [place] [address] Care Team Providers Care Assembler Skylights Name Role Phone Alfreda Ray PA-C Primary Care Provider + Alfreda Ray PA-C Unavailable [phone] Katrin Orellana PA-C Unavailable [phone] Shanna Vang PA-C Unavailable [phone] Fransisco Eddy MD Unavailable Cristina Hsieh [facility] Unavailable [phone] Alfreda Ray PA-C Unavailable [phone] Cristina Hsieh [facility] Unavailable Dakota Tatum MD Unavailable [phone] Dakota Tatum MD Unavailable [phone] Srinivas Marie DO Unavailable [phone] Allergies Active Allergy Reactions Criticality Noted Date Comments Codeine Low 08/11/2016 Other reaction(s): severe nausea Medications acetaminophen (TYLENOL) 500 MG tabletIndications: Primary osteoarthritis involving multiple joints Take 2 tablets (1,000 mg) by mouth 3 times daily as needed for pain 3 Active cyanocobalamin (VITAMIN B-12) 1000 MCG tablet Take 1,000 mcg by mouth daily Active predniSONE (DELTASONE) 5 MG tabletIndications: Polyarthralgia Take 1 tab daily for 90 days 90 tablet 1 4 Active atenolol (TENORMIN) 25 MG tabletIndications: 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 90 tablet 3 4 Active lisinopril-hydroch lorothiazide (ZESTORETIC) 10-12.5 MG tabletIndications: Benign hypertension with CKD (chronic kidney disease) stage III (H) Take 1 tablet by mouth daily. 90 tablet 3 4 Active simvastatin (ZOCOR) 20 MG tabletIndications: Hypercholesterolem ia Take 1 tablet (20 mg) by mouth at bedtime. 90 tablet 3 4 Active DULoxetine (CYMBALTA) 60 MG capsuleIndications :Primary osteoarthritis involving multiple joints Take 1 capsule (60 mg) by mouth daily (with dinner). 90 capsule 3 4 Active gabapentin (NEURONTIN) 300 MG capsuleIndications :Primary osteoarthritis involving multiple joints,Arthralgia, unspecified joint Take 2 capsules (600 mg) by mouth every morning AND 2 capsules (600 mg) daily (with lunch) AND 3 capsules (900 mg) every evening. 630 capsule 3 4 Active rivaroxaban ANTICOAGULANT (XARELTO) 10 MG TABS tabletIndications: Acute deep vein thrombosis (DVT) of femoral vein of left lower extremity (H),Family history of clotting disorder Take 1 tablet (10 mg) by mouth daily with food. 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 120 tablet 2 4 Active valACYclovir (VALTREX) 500 MG tabletIndications: Recurrent cold sores Take 1 tablet (500 mg) by mouth daily. 90 tablet 3 4 Active sulfamethoxazole-t rimethoprim (BACTRIM DS) 800-160 MG tabletIndications: Complicated UTI (urinary tract infection) Take 1 tablet by mouth 2 times daily for 7 days. 14 tablet 4 06/24/19 25 Active cefpodoxime (VANTIN) 200 MG tabletIndications: Complicated UTI (urinary tract infection) Take 1 tablet (200 mg) by mouth 2 times daily for 7 days. 14 tablet 4 06/22/19 25 Hospital, Clinic, or Other Facility Administered Medication [...] factor (H) - Dr. Fransisco Eddy @ [facility] - on Humira & hydroxychloroquine 08/27/2022 Family [...] Total Score(s): No flowsheet data found. Last [facility] website verification: Done 09/25/2019 [email or web address] Anxiety 04/13/2014 12/30/2021 HTN, goal below 140/90 [...] Reviewed chart for advance care plan. Alexandria Fregoso Cococecy has been provided information and resources to [...] Department Care Team Description 06/17/2024 Orders Only [facility] [address] [place] [address] Yamile James PA-C Complicated UTI (urinary tract infection) (Primary Dx) 06/15/2024 2:05 PM SALES PROJECT COORDINATOR Office Visit [facility] [place] [address] [place] [address] Yamile James PA-C Complicated UTI (urinary tract infection) (Primary Dx); Dysuria; Flank pain 06/15/2024 Travel 06/07/2024 3:40 PM SALES PROJECT COORDINATOR E-Visit [address] [place] [phone] Alfreda Ray PA-C Derm Problem (Entered automatically based ... 06/07/2024 MyC Medical Advice [address] [place] [phone] Alfreda Ray PA-C 06/06/[address] 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) (Primary Dx); Primary osteoarthritis involving multiple joints; Severe obesity (BMI 35.0-39.9) with comorbidity (H) - prediabetes, hypertension 05/04/2024 12:30 PM SALES PROJECT COORDINATOR Office Visit [facility] [address] [phone] Fransisco Eddy MD Polyarthralgia (Primary Dx) 05/04/2024 Travel 05/01/2024 Travel 04/30/2024 MyC Medical Advice [facility] [address] [place] [phone] Alfreda Ray PA-C Urinary Problem 04/03/2024 Refill [facility] [address] [phone] Fransisco Eddy MD Medication Refill 2024 Telephone [facility] 3rd [place] [address] Cristina Hsieh, [facility] 03/27/2024 2:20 PM CDT Office Visit [facility] [place] [address] [facility] [address] [place] [address] Alfreda Ray PA-C Sheehan, Andrew, [...] re latives? Once a week 03/15/2024 Attends Judaism Services Not on file 03/15 Active Member of Clubs or Organizations Not on f ile 03/15/2024 Attends Club or Organization Meetings Not on anu e 03/15/2024 Marital Status Not on file 03/15/2024 PHQ-2 Answer Date Recorded PHQ-2 Score 0 03/16/2024 [facility] - Occupational Stress Questionnaire Answer Date Recorded [...] in an abandoned building, in an overnight [place] [facility] [place], or couch-surfing.) Yes 03/15/2024 Are you worried [...] Sex Assigned at Female 08/17/2018 7:56 AM SALES PROJECT COORDINATOR Legal Sex Female 4:24 AM SALES PROJECT COORDINATOR Gender Identity Female 08/17/2018 7:56 AM SALES PROJECT COORDINATOR Sexual Orientation Straight 08/17/2018 7: 56 AM SALES PROJECT COORDINATOR Last Filed Vital Signs Vital Sign Reading Time Taken Comments Blood Pressure 136/70 06/15/2024 6:10 PM SALES PROJECT COORDINATOR Pulse 64 06/15/2024 4:35 PM SALES PROJECT COORDINATOR Temperature 36.8 C (98.2 F) 06/15/2024 4:35 PM SALES PROJECT COORDINATOR Respiratory Rate 18 06/15/2024 4:35 PM SALES PROJECT COORDINATOR Oxygen Saturation 97% 06/15/2024 4:35 PM SALES PROJECT COORDINATOR Inhaled Oxygen Concentration - - Weight 94.3 kg (208 lb) 06/15/2024 4:35 PM SALES PROJECT COORDINATOR Height 157.5 cm (5' 2) 05/04/2024 12:20 PM SALES PROJECT COORDINATOR Body Mass Index 38.04 05/04/2024 12:20 PM SALES PROJECT COORDINATOR Plan of Treatment Upcoming Encounters Date Type Department Care Team (Late st Contact Info) Description 09/07/2024 10:00 AM CDT Office Visit [facility] [address] [phone] Fransisco Eddy MD [address] [place] [address] 03/29/2025 3:40 PM CDT Office Visit [address] [place] [phone] Alfreda Ray PA-C [address] [place] [address] [phone] Health Maintenance Due Date Last Done Comments CT COLONOGRAPHY 1940 FIT 1940 FLEX SIG 1940 sDNA (Cologuard) 1940 DEXA 10/01/2023 09/30/2020, 11/19, 09/04/2010, Additional history exists HEPATITIS A IMMUNIZATION [...] PLATELETS & DIFFERENTIAL STAT 06/15/2024 5:14 PM SALES PROJECT COORDINATOR Flank pain CBC WITH PLATELETS AND DIFFERENTIAL STAT 06/15/2024 5:14 PM SALES PROJECT COORDINATOR Flank pain BASIC METABOLIC PANEL STAT 06/15/2024 5:14 PM SALES PROJECT COORDINATOR Flank pain CRP INFLAMMATION STAT 06/15/2024 5:14 PM SALES PROJECT COORDINATOR Flank pain URINE CULTURE Routine 06/15/2024 2:15 PM SALES PROJECT COORDINATOR Dysuria URINE MICROSCOPIC EXAM Routine 06/15/2024 2:15 PM SALES PROJECT COORDINATOR Dysuria UA MACROSCOPIC WITH REFLEX TO MICRO AND CULTURE Routine 06/15/2024 2:15 PM SALES PROJECT COORDINATOR Dysuria ALBUMIN RANDOM URINE QUANTITATIVE Routine 03/16/2024 [...] COLONOSCOPY - HIM SCAN 08/26/2015 12:00 AM SALES PROJECT COORDINATOR from Last 3 Months or Most Recently Relevant to Health Maintenance Results * (ABNORMAL) CBC with platelets and differential (06/15/2024 5:14 PM SALES PROJECT COORDINATOR) WBC Count 5.3 4.0 - 11.0 10e3/uL 06/15/2024 5:37 PM SALES PROJECT COORDINATOR [facility] RBC Count 3.23(L) 3.80 - 5.20 10e6/uL 06/15/2024 5:37 PM SALES PROJECT COORDINATOR [facility] Hemoglobin 10.9(L) 11.7 - 15.7 g/dL 06/15/2024 5:37 PM SALES PROJECT COORDINATOR [facility] Hematocrit 34.2(L) 35.0 - 47.0 % 06/15/2024 5:37 PM SALES PROJECT COORDINATOR [facility] MCV 106(H) 78 - 100 fL 06/15/2024 5:37 PM SALES PROJECT COORDINATOR [facility] MCH 33.7(H) 26.5 - 33.0 pg 06/15/2024 5:37 PM SALES PROJECT COORDINATOR [facility] MCHC 31.9 31.5 - 36.5 g/dL 06/15/2024 5:37 PM SALES PROJECT COORDINATOR [facility] RDW 13.3 10.0 - 15.0 % 06/15/2024 5:37 PM SALES PROJECT COORDINATOR [facility] Platelet Count 302 150 - 450 10e3/uL 06/15/2024 5:37 PM SALES PROJECT COORDINATOR [facility] % Neutrophils 65 % 06/15/2024 5:37 PM SALES PROJECT COORDINATOR [facility] % Lymphocytes 26 % 06/15/2024 5:37 PM SALES PROJECT COORDINATOR [facility] % Monocytes 8 % 06/15/2024 5:37 PM SALES PROJECT COORDINATOR [facility] % Eosinophils 0 % 06/15/2024 5:37 PM SALES PROJECT COORDINATOR [facility] % Basophils 0 % 06/15/2024 5:37 PM SALES PROJECT COORDINATOR [facility] % Immature Granulocytes 1 % 06/15/2024 5:37 PM SALES PROJECT COORDINATOR [facility] Absolute Neutrophils 3.4 1.6 - 8.3 10e3/uL 06/15/2024 5:37 PM SALES PROJECT COORDINATOR [facility] Absolute Lymphocytes 1.4 0.8 - 5.3 10e3/uL 06/15/2024 5:37 PM SALES PROJECT COORDINATOR [facility] Absolute Monocytes 0.4 0.0 - 1.3 10e3/uL 06/15/2024 5:37 PM SALES PROJECT COORDINATOR [facility] Absolute Eosinophils 0.0 0.0 - 0.7 10e3/uL 06/15/2024 5:37 PM SALES PROJECT COORDINATOR [facility] Absolute Basophils 0.0 0.0 - 0.2 10e3/uL 06/15/2024 5:37 PM SALES PROJECT COORDINATOR [facility] Absolute Immature Granulocytes 0.0 <=0.4 10e3/uL 06/15/2024 5:37 PM SALES PROJECT COORDINATOR [facility] Blood BLOOD SPECIMEN / Unknown Venipuncture / Unknown 06/15/2024 5:14 PM SALES PROJECT COORDINATOR 06/15/2024 5:14 PM SALES PROJECT COORDINATOR us Yamile James PA-C LAB - BLOOD ORDERABLES Final R esult LABORATORY [facility] [place] [facility] [address] [facility] Lab (no room number, 1st floor of clinic) [place] [address], [facility] * CRP, inflammation (06/15/2024 5:14 PM SALES PROJECT COORDINATOR) CRP Inflammation <3.00 <5.00 mg/L 06/15/20 7:09 PM [facility] Blood BLOOD SPECIMEN / Unknown Venipuncture / Unknown 06/15/2024 5:14 PM SALES PROJECT COORDINATOR 06/15/2024 5:14 PM SALES PROJECT COORDINATOR us Yamile James PA-C LAB - BLOOD ORDERABLES Final R esult LABORATORY [facility] [address] Lab (1st floor, no room number) [place] [address] * (ABNORMAL) Basic metabolic panel (06/15/2024 5:14 PM SALES PROJECT COORDINATOR) Sodium 143 135 - 145 mmol/L 06/15/2024 7:09 PM [facility] Potassium 4.6 3.4 - 5.3 mmol/L 06/15/2024 7:09 PM [facility] Chloride 106 98 - 107 mmol/L 06/15/2024 7:09 PM [facility] Carbon Dioxide (CO2) 26 22 - 29 mmol/L 06/15/2024 7:09 PM [facility] Anion Gap 11 7 - 15 mmol/L 06/15/2024 7:09 PM [facility] Urea Nitrogen 26.3(H) 8.0 - 23.0 mg/dL 06/15/2024 7:09 PM [facility] Creatinine 1.18(H) 0.51 - 0.95 mg/dL 06/15/2024 7:09 PM [facility] GFR Estimate 46(L) >60 mL/min/1.7 3m2 06/15/2024 7:09 PM [facility] Comment:eGFR calculated usin g 2020 CKD-EPI equation. Calcium 9.8 8.8 - 10.4 mg/dL 06/15/2024 7:09 PM [facility] Comment:Reference intervals for this test were updated on 01/04/2024 to reflect our healthy population more accurately. There may be differences in the flagging of prior results with similar values performed with this method. Those prior results can be interpreted in the context of the updated reference intervals. Glucose 125(H) 70 - 99 mg/dL 06/15/2024 7:09 PM SALES PROJECT COORDINATOR LABORATORY Blood BLOOD SPECIMEN / Unknown Venipuncture / Unknown 06/15/2024 5:14 PM SALES PROJECT COORDINATOR 06/15/2024 5:14 PM SALES PROJECT COORDINATOR us Yamile James PA-C LAB - BLOOD ORDERABLES Final R esult LABORATORY [facility] [address] Lab (1st floor, no room number) [place] [address] * (ABNORMAL) UA Macroscopic with reflex to Microscopic and Culture - Clinic Collect (06/15/2024 2:15 PM SALES PROJECT COORDINATOR) Color Urine Yellow Colorless, Straw, Light Yellow, Yellow 06/15/2024 2:28 PM SALES PROJECT COORDINATOR LABORATORY Appearance Urine Clear Clear 06/15/20 2:28 PM SALES PROJECT COORDINATOR LABORATORY Glucose Urine Negative Negative mg/dL 06/15/2024 2:28 PM SALES PROJECT COORDINATOR LABORATORY Bilirubin Urine Small(A) Negative 2:28 PM SALES PROJECT COORDINATOR LABORATORY Ketones Urine 15(A) Negative mg/dL 06/15/2024 2:28 PM SALES PROJECT COORDINATOR LABORATORY Specific [place] Urine >=1.030 1.003 - 1.035 06/15/2024 2:28 PM SALES PROJECT COORDINATOR LABORATORY Blood Urine Trace(A) Negative 06/15/2024 2:28 PM SALES PROJECT COORDINATOR LABORATORY pH Urine 5.5 5.0 - 7.0 06/15/2024 2:28 PM SALES PROJECT COORDINATOR LABORATORY Protein Albumin Urine 100(A) Negative mg/dL 06/15/2024 2:28 PM SALES PROJECT COORDINATOR LABORATORY Urobilinogen Urine 0.2 0.2, 1.0 E.U./dL 06/15/2024 2:28 PM SALES PROJECT COORDINATOR [facility] Nitrite Urine Negative Negative 06/15/2024 2:28 PM SALES PROJECT COORDINATOR [facility] Leukocyte Esterase Urine Moderate(A) Negative 06/15/2024 2:28 PM SALES PROJECT COORDINATOR LABORATORY Urine URINE SPECIMEN OBTAINED BY CLEAN CATCH PROCEDURE / Unknown Non-blood Collection / Unknown 06/15/2024 2:15 PM SALES PROJECT COORDINATOR 06/15/2024 2:15 PM SALES PROJECT COORDINATOR us Esteban Gant MD LAB - URINE ORDERABLES Final Res ult Performing Organization Address City/[place] [facility]/ZIP Co de Phone Number LABORATORY [facility] Lab [address] [facility] Lab (no room number, 1st floor of [facility]) [address] * (ABNORMAL) Urine Microscopic Exam (06/15/2024 2:15 PM SALES PROJECT COORDINATOR) Bacteria Urine Moderate( A) None Seen /HPF KAILYN 06/15/2024 2:35 PM SALES PROJECT COORDINATOR [facility] RBC Urine 2-5(A) 0-2 /HPF /HPF KAILYN 06/15/2024 2:35 PM SALES PROJECT COORDINATOR [facility] WBC Urine >100(A) 0-5 /HPF /HPF KAILYN 06/15/2024 2:35 PM SALES PROJECT COORDINATOR [facility] Squamous Epithelials Urine Few(A) None Seen /LPF KAILYN 06/15/2024 2:35 PM SALES PROJECT COORDINATOR [facility] Urine URINE SPECIMEN OBTAINED BY CLEAN CATCH PROCEDURE / Unknown Non-blood Collection / Unknown 06/15/2024 2:15 PM SALES PROJECT COORDINATOR 06/15/2024 2:15 PM SALES PROJECT COORDINATOR us Esteban Gant MD LAB - URINE ORDERABLES Final Res ult Performing Organization Address [facility]/[place] [facility]/ZIP Co de Phone Number LABORATORY [facility] Lab [address] [facility] Lab (no room number, 1st floor of [facility]) [address] * (ABNORMAL) Urine Culture (06/15/2024 2:15 PM SALES PROJECT COORDINATOR) Culture 10,000-50,000 CFU/mL Enterobacter cloacae complex(A) 06/16/2024 11:19 PM SALES PROJECT COORDINATOR [facility] Urine URINE SPECIMEN OBTAINED BY CLEAN CATCH PROCEDURE / Unknown Non-blood Collection / Unknown 06/15/2024 2:15 PM SALES PROJECT COORDINATOR 06/15/2024 2:28 PM SALES PROJECT COORDINATOR Narrative Organism Antibiotic Method Susceptibility Enterobacter cloacae [...] ORDERABLES F inal Result [facility] LABORATORY [facility] Inf. Diseases Diag. Lab [address] [facility], [address] [place] [address], [facility] * Albumin Random Urine Quantitative with Creat [...] control, and institution of therapy with an kloxsgpycsx-ebhdqbykfn-zfaoam (JUANCARLOS) inhibitor (if the patient can tolerate it). Urine URINE SPECIMEN / Unknown Non-blood Collection / Unknown 03/16/2024 3:16 PM CDT 03/16/2024 3:16 PM CDT us Alfreda Ray PA-C LAB - URINE ORDERABLES F inal Result [facility] LABORATORY [facility] [place] [facility] [address] [facility], [address] [phone] * (ABNORMAL) Lipid panel reflex to direct [...] LAB - BLOOD ORDERABLES F inal Result LABORATORY [facility] [place] [facility] [address] [facility], [address] [place] [address] * (ABNORMAL) HEMOGLOBIN A1C (03/16/2024 3:09 PM CDT) Pathologist [facility] Estimated Average Glucose 120(H) <117 mg/dL 03/16/2024 [...] BLOOD ORDERABLES F inal Result RV LABORATORY [facility] [place] [facility] [address] [place] [address] [facility], 1st floor of clinic) [place] [address], [facility] * (ABNORMAL) Comprehensive metabolic panel (BMP + Alb, Alk Phos, ALT, AST, Total. Bili, TP) (03/16/2024 3:09 PM CDT) Pathologist [facility] Sodium 143 135 - 145 mmol/L 03/17/2024 [...] ORDERABLES F inal Result Performing Organization Address City/[facility]/ZIP Co de Phone Number [facility] LABORATORY [facility] [place] [facility] [address] [facility], [address] [address] * Vitamin B12 (03/16/2024 3:09 PM CDT) [facility] Vitamin B12 869 232 - 1,245 pg/mL 03/17/2024 7:42 PM CDT [facility] Blood BLOOD SPECIMEN / Unknown Venipuncture / Unknown 03/16/2024 3:09 PM CDT 03/16/2024 3:09 PM CDT Alfreda Ray PA-C LAB - BLOOD ORDERABLES F inal Result Performing Organization Address City/[facility] de Phone Number [facility] LABORATORY [facility] [place] [facility] [address] [facility], [address] [address] * DX Hip/Pelvis/Spine w Lateral (09/30/2020 12:30 PM CDT) Anatomical Region Laterality Modality Dexa Bone Mineral Den sity Narrative 10/04/2020 1:35 PM CDT BONE DENSITOMETRY [address] [address] 09/30/2020 PATIENT: Alexandria Bradshaw CHART: [id number] : 1940 AGE: [age] year old SEX: female REFERRING PROVIDER: Kelly Haley MD PROCEDURE: Bone density scanning was performed using DXA technology of the lumbar spine and hip. Scanning was performed on a RealGravity scanner. Reporting is completed in the form [...] to another DXA performed on the same RealGravity machine on 12/10/2014. LATERAL VERTEBRAL ASSESSMENT Procedure: Vertebral fracture assessment was performed in the lateral decubitus position using a RealGravity densitometer. Indications for VFA: T-score of -1.0 [...] must still be used. CAN SALGUERO M.D. us Kelly Haley MD IMG DEXA ORDERABLES Fin al Result * MA Screen Bilateral w/Ojse (09/30/2020 12:11 PM CDT) Anatomical Region Laterality [...] COLONOSCOPY - HIM SCAN (08/26/2015 12:00 AM SALES PROJECT COORDINATOR) 08/26/2015 us Provider Outside PROCEDURES Final Result from Last 3 Months or Most Recently Relevant to Health Maintenance Insurance [facility] MEDICARE ADVANTAGE BCBS MEDICARE ADVANTAGE * Guarantor: Alexandria Bradshaw Account Type Relation to Patient Date of Phone Billing Address Medication Therapy Self 1940 [address] MEDICARE ADVANTAGE Advance Directives For more information, please contact: [phone] * Full Code (Latest Code Status on File) Date Activated Date Inactivated Comments 12/08/2021 8:37 PM 12/09/2021 3:06 PM All basic an d advanced life-sustaining interventions are performed as appropriate Question Answer Comments Code status determined by: Discussion with patie nt/ legal decision maker Care Teams Assembler Skylights Relationship Specialty Start Date End Date Alfreda Ray PA-C [address] [place] [phone] PCP - General Family Medicine 12/30/21 Alfreda Ray PA-C [address] [place] [address] Referring Physician Family Medicine 12/31/21 Katrin Orellana PA-C [address] [place] [address] [address] [place], [place] [phone] Physician Pre Fabricator Dermatology 12/31/21 Shanna Vang PA-C [address] [place], [place] [phone] Assigned Cancer Care Provider 01/10/22 Fransisco Eddy MD [address] [place] [address] [address] [place], [place] [phone] Assigned Rheumatology Provider 05/09/22 Cristina Hsieh [facility] [address] [place] [address] [address]ISBETH HERNA[address]DEZ [phone] Pharmacist Pharmacist 09/07/22 Alfreda Ray PA-C [address] [place] [address] [phone] Assigned PCP 08/29/22 Cristina Hsieh, [facility] [address] [address] Assigned MTM Pharmacist 09/26/22 Dakota Tatum MD [address] [place] [address] Cardiovascular Disease 03/25/23 Dakota Tatum MD [address] [place] [address] Assigned Heart and Vascular Provider 05/01/23 [place] [address] [address] [facility], [address] [address] Assigned Musculoskeletal Provider 04/12/24
--- OUTSIDE RECORDS SUMMARY | 2024-06-23 00:17 | XMS_ITS | Clinical Summary ---
Author Organization [employer] [facility] [employer] [facility] Address [place], [place] [address] Care Team Providers Care Pile Driver Operator Name Role Phone Clinic, No Pcp Or [...] on file Legal Sex Female 5:27 AM INDUSTRIAL CUSTODIAN Gender Identity Not on file Sexual Orientation Not on file Obstetrics History Last Filed Vital Signs Vital Sign Reading Time Taken Comments Blood Pressure 125/62 01/31/2019 10:24 AM CDT Pulse 66 01/31/2019 10:24 AM CDT Temperature 36.3 C (97.3 F) 04/29/2015 8:20 AM INDUSTRIAL CUSTODIAN Respiratory Rate 16 04/29/2015 8:45 AM INDUSTRIAL CUSTODIAN Oxygen Saturation 98% 04/29/2015 8:45 AM INDUSTRIAL CUSTODIAN Inhaled Oxygen Concentration - - Weight 61.7 kg (135 lb 15.3 oz) 015 12:42 AM INDUSTRIAL CUSTODIAN Height 160 cm (5' 3) 04/29/2015 6:24 AM INDUSTRIAL CUSTODIAN Body Mass Index 24.08 04/25/2015 12:42 AM INDUSTRIAL CUSTODIAN Plan of Treatment Health Maintenance Due Date [...] 65+ 02/20/2024 Medical Devices Implanted Type Area Open Developer Operator Device Identifier Shelf Expiration Date Model / Serial / Lot Lens Iol 21.5 Wf [id number]. 5 - [id number] Implanted:Qty: 1 on 04/15/2015 by David Garcia MD at [facility] Left: Eye [employer] 01/14/2020 [id number]. 5# / [id number] / Lens Iol 20.5 Wf [id number]. 5 - [id number] Implanted:Qty: 1 on 04/29/2015 by David Garcia MD at [facility] Right: Eye [employer] 01/19/2020 [id number]. 5# / [id number] / Insurance MEDICARE PART B HB [...] 6:17 AM 04/15/2015 7:54 AM Care Teams Pile Driver Operator Relationship Specialty Start Date End Date Clinic, No Pcp Or . PCP - General 02/26/22
--- OUTSIDE RECORDS SUMMARY | 2024-06-23 00:18 | XMS_ITS | Encounter Summary ---
Author Organization [place] Address [address] [place] [address] Care Team Providers Care Electricians Top Helper Name Role Phone Alfreda Ray PA-C Primary Care Provider + Alfreda Ray PA-C Unavailable [phone] Katrin Orellana PA-C Unavailable [phone] Shanna Vang-C Unavailable [phone] Fransisco Eddy MD Unavailable Cristina Hsieh [facility] Unavailable Alfreda RayC Unavailable [phone] Cristina Hsieh [facility] Unavailable Dakota Tatum MD Unavailable Dakota Tatum MD Unavailable [phone] Srinivas Marie DO Unavailable [phone] Reason for Visit * Reason Onset Date Comments Referral 03/17/2024 Encounter Details Date Type Department Care Team (Late st Contact Info) Description 03/17/[address] [facility] [place] [id number], [address] [place] [address] Nurse, Vein Referral Social History [...] re latives? Once a week 03/15/2024 Attends Gnosticist Services Not on file 03/15 Active Member of Clubs or Organizations Not on f ile 03/15/2024 Attends Club or Organization Meetings Not on anu e 03/15/2024 Marital Status Not on file 03/15/2024 PHQ-2 Answer Date Recorded PHQ-2 Score 0 03/16/2024 [facility] of Occupat ional Health - Occupational Stress [...] in an abandoned building, in an overnight halfway, or couch-surfing.) Yes 03/15/2024 Are you worried [...] Sex Assigned at Female 08/17/2018 7:56 AM TUBERCULOSIS SPECIALIST Legal Sex Female 4:24 AM TUBERCULOSIS SPECIALIST Gender Identity Female 08/17/2018 7:56 AM TUBERCULOSIS SPECIALIST Sexual Orientation Straight 08/17/2018 7: 56 AM TUBERCULOSIS SPECIALIST documented as of this encounter Miscellaneous Notes * Telephone Encounter - Briseyda Carmen CMA - 03/17/2024 8:24 AM CDT 03/17/24 LVM FOR PATIENT TO SCHEDULE CONSULT IN [place]. documented in this encounter Plan of Treatment Upcoming Encounters Date Type Department Care Team (Late st Contact Info) Description 09/07/2024 10:00 AM CDT Office Visit [facility] Specialty [address] [phone] Fransisco Eddy MD [address] [place] [address] [phone] 03/29/2025 3:40 PM CDT Office Visit [address] [phone] Alfreda Ray PA-C [address] [place] [address] [phone] documented as of this encounter Visit Diagnoses Not on filedocumented in this encounter Additional Health Concerns Assessment Noted Time PHQ-9 Depression Total Score: 5 03/09/20 23 10:57 AM CDT documented as of this encounter Care Teams Electricians Top Helper Relationship Specialty Start Date End Date Alfreda Ray PA-C [address] [place] [address] PCP - General Family Medicine 12/30/21 Alfreda Ray PA-C [address] [place] [address] Referring Physician Family Medicine 12/31/21 Katrin Orellana PA-C [address] [place] [address] Physician Online Media Director Dermatology 12/31/21 Shanna Vang PA-C [address] [place] [address] [phone] Assigned Cancer Care Provider 01/10/22 Fransisco Eddy MD [address] [place] [address] [phone] Assigned Rheumatology Provider 05/09/22 Cristina Hsieh [facility] [address] [place] [address] LISBETH HERNANDEZ [address] Pharmacist Pharmacist 09/07/22 Alfreda Ray PA-C [address] [place] [address] Assigned PCP 08/29/22 Cristina Hsieh, [facility] [address] [facility] [address] [place] [address] Assigned MTM Pharmacist 09/26/22 Dakota Tatum MD [address] [place] [address] 240695 Cardiovascular Disease 03/25/23 Dakota Tatum MD [address] [place] [address] 448275 Assigned Heart and Vascular Provider 05/01/23 [place] [address] [address], [facility] [address] [place] [address] Assigned Musculoskeletal Provider 04/12/24 documented as of this encounter
--- OUTSIDE RECORDS SUMMARY | 2024-06-23 00:18 | XMS_ITS | Referral Summary ---
Author Organization [facility] Address [address] [place] [address]. [place] [address] Care Team Providers Care Steel Roller Name Role Phone Alfreda Ray PA-C Primary Care Provider + Alfreda Ray PA-C Unavailable [phone] Katrin Orellana PA-C Unavailable [phone] Shanna Vang PA-C Unavailable [phone] Fransisco Eddy MD Unavailable Cristina Hsieh [facility] Unavailable Alfreda Ray PA-C Unavailable [phone] Cristina Hsieh [facility] Unavailable Dakota Tatum MD Unavailable [phone] Dakota Tatum MD Unavailable [phone] Srinivas Marie DO Unavailable [phone] Encounters Date Type Department Care Team Description 06/17/2024 Orders Only [address] [phone] Yamile James PA-C Complicated UTI (urinary tract infection) (Primary Dx) 06/15/2024 Travel 06/15/2024 2:05 PM 3D ARTIST Office Visit [facility] [place] [address] [place] [phone] Yamile James PA-C Complicated UTI (urinary tract infection) (Primary Dx); Dysuria; Flank pain 06/07/2024 MyC Medical Advice [address] [phone] Alfreda Ray PA-C 06/07/2024 3:40 PM 3D ARTIST E-Visit [address] [phone] Alfreda Ray PA-C Derm Problem (Entered automatically based ... 06/06/[address] [phone] Alfreda Ray PA-C 06/02/2024 10:30 AM 3D ARTIST Virtual Visit [facility] Rheumatology [address] [phone] Fransisco Eddy MD [facility] Rheumatoid arthritis involving multiple sites with positive rheumatoid factor (H) (Primary Dx); Primary osteoarthritis involving multiple joints; Severe obesity (BMI 35.0-39.9) with comorbidity (H) - prediabetes, hypertension 05/04/2024 Travel 05/04/2024 12:30 PM 3D ARTIST Office Visit [facility] [address] [phone] Fransisco Eddy MD Polyarthralgia (Primary Dx) 05/01/2024 Travel 04/30/2024 MyC Medical Advice [address] [phone] Alfreda Ray PA-C Urinary Problem 04/03/2024 Refill [facility]umat[facility] [address] [phone] Fransisco Eddy MD Medication Refill 2024 Telephone [facility] Rheumatology [facility] [address] [facility] 3rd [place] [address] Cristina Hsieh, [facility] 03/27/2024 Travel 03/27/2024 2:20 PM CDT Office Visit [facility] [place] [address] [facility] [address] [place] [address] Alfreda Ray PA-C Sheehan, Andrew, [...] Polyarthralgia Take 4 tablets daily, taper per 120 tablet 2 4 Active valACYclovir (VALTREX) [...] 12/30/2021 Rheumatoid factor positive - Rheumatology consultation 2012 was not concerned for RA - 2nd [...] Total Score(s): No flowsheet data found. Last [facility] website verification: Done 09/25/2019 [email or web address] Anxiety 04/13/2014 12/30/2021 HTN, goal below 140/90 [...] 12+ (Pfizer) 03/16/2024 COVID-19 MONOVALENT 12+ (Pfizer) 03/19/2021,03/10/2020,08/02/2020 COVID-19 Monovalent 12+ (Pfizer 2021) 09/29/2021 Flu, [...] re latives? Once a week 03/15/2024 Attends Zoroastrian Services Not on file 03/15 Active Member of Clubs or Organizations Not on f ile 03/15/2024 Attends Club or Organization Meetings Not on anu e 03/15/2024 Marital Status Not on file 03/15/2024 PHQ-2 Answer Date Recorded PHQ-2 Score 0 03/16/2024 [facility] of Occupat ional Health - Occupational Stress [...] in an abandoned building, in an overnight snf, or couch-surfing.) Yes 03/15/2024 Are you worried [...] Sex Assigned at Female 08/17/2018 7:56 AM 3D ARTIST Legal Sex Female 4:24 AM 3D ARTIST Gender Identity Female 08/17/2018 7:56 AM 3D ARTIST Sexual Orientation Straight 08/17/2018 7: 56 AM 3D ARTIST Last Filed Vital Signs Vital Sign Reading Time Taken Comments Blood Pressure 136/70 06/15/2024 6:10 PM 3D ARTIST Pulse 64 06/15/2024 4:35 PM 3D ARTIST Temperature 36.8 C (98.2 F) 06/15/2024 4:35 PM 3D ARTIST Respiratory Rate 18 06/15/2024 4:35 PM 3D ARTIST Oxygen Saturation 97% 06/15/2024 4:35 PM 3D ARTIST Inhaled Oxygen Concentration - - Weight 94.3 kg (208 lb) 06/15/2024 4:35 PM 3D ARTIST Height 157.5 cm (5' 2) 05/04/2024 12:20 PM 3D ARTIST Body Mass Index 38.04 05/04/2024 12:20 PM 3D ARTIST Plan of Treatment Upcoming Encounters Date Type Department Care Team (Late st Contact Info) Description 09/07/2024 10:00 AM CDT Office Visit [facility] [address] [place] [phone] Fransisco Eddy MD [address] [place] [address] 03/29/2025 3:40 PM CDT Office Visit [address] [phone] Alfreda Ray PA-C [address] [place] [address] [phone] Procedures Procedure Name Priority Date/Time Associated Diagnosis Comments CBC WITH PLATELETS & DIFFERENTIAL STAT 06/15/2024 5:14 PM 3D ARTIST Flank pain CBC WITH PLATELETS AND DIFFERENTIAL STAT 06/15/2024 5:14 PM 3D ARTIST Flank pain BASIC METABOLIC PANEL STAT 06/15/2024 5:14 PM 3D ARTIST Flank pain CRP INFLAMMATION STAT 06/15/2024 5:14 PM 3D ARTIST Flank pain URINE CULTURE Routine 06/15/2024 2:15 PM 3D ARTIST Dysuria URINE MICROSCOPIC EXAM Routine 06/15/2024 2:15 PM 3D ARTIST Dysuria UA MACROSCOPIC WITH REFLEX TO MICRO AND CULTURE Routine 06/15/2024 2:15 PM 3D ARTIST Dysuria ALBUMIN RANDOM URINE QUANTITATIVE Routine 03/16/2024 [...] COLONOSCOPY - HIM SCAN 08/26/2015 12:00 AM 3D ARTIST from Last 3 Months or Most Recently Relevant to Health Maintenance Results * (ABNORMAL) CBC with platelets and differential (06/15/2024 5:14 PM 3D ARTIST) WBC Count 5.3 4.0 - 11.0 10e3/uL 06/15/2024 5:37 PM 3D ARTIST [facility] RBC Count 3.23(L) 3.80 - 5.20 10e6/uL 06/15/2024 5:37 PM 3D ARTIST [facility] Hemoglobin 10.9(L) 11.7 - 15.7 g/dL 06/15/2024 5:37 PM 3D ARTIST [facility] Hematocrit 34.2(L) 35.0 - 47.0 % 06/15/2024 5:37 PM 3D ARTIST [facility] MCV 106(H) 78 - 100 fL 06/15/2024 5:37 PM 3D ARTIST [facility] MCH 33.7(H) 26.5 - 33.0 pg 06/15/2024 5:37 PM 3D ARTIST [facility] MCHC 31.9 31.5 - 36.5 g/dL 06/15/2024 5:37 PM 3D ARTIST [facility] RDW 13.3 10.0 - 15.0 % 06/15/2024 5:37 PM 3D ARTIST [facility] Platelet Count 302 150 - 450 10e3/uL 06/15/2024 5:37 PM 3D ARTIST [facility] % Neutrophils 65 % 06/15/2024 5:37 PM 3D ARTIST [facility] % Lymphocytes 26 % 06/15/2024 5:37 PM 3D ARTIST [facility] % Monocytes 8 % 06/15/2024 5:37 PM 3D ARTIST [facility] % Eosinophils 0 % 06/15/2024 5:37 PM 3D ARTIST [facility] % Basophils 0 % 06/15/2024 5:37 PM 3D ARTIST [facility] % Immature Granulocytes 1 % 06/15/2024 5:37 PM 3D ARTIST [facility] Absolute Neutrophils 3.4 1.6 - 8.3 10e3/uL 06/15/2024 5:37 PM 3D ARTIST [facility] Absolute Lymphocytes 1.4 0.8 - 5.3 10e3/uL 06/15/2024 5:37 PM 3D ARTIST [facility] Absolute Monocytes 0.4 0.0 - 1.3 10e3/uL 06/15/2024 5:37 PM 3D ARTIST [facility] Absolute Eosinophils 0.0 0.0 - 0.7 10e3/uL 06/15/2024 5:37 PM 3D ARTIST [facility] Absolute Basophils 0.0 0.0 - 0.2 10e3/uL 06/15/2024 5:37 PM 3D ARTIST [facility] Absolute Immature Granulocytes 0.0 <=0.4 10e3/uL 06/15/2024 5:37 PM 3D ARTIST [facility] Blood BLOOD SPECIMEN / Unknown Venipuncture / Unknown 06/15/2024 5:14 PM 3D ARTIST 06/15/2024 5:14 PM 3D ARTIST us Yamile James PA-C LAB - BLOOD ORDERABLES Final R esult LABORATORY [facility] [place] [facility] [place] Lab [address] [facility] (no room number, 1st floor of clinic) [place] [address], [facility] * CRP, inflammation (06/15/2024 5:14 PM 3D ARTIST) CRP Inflammation <3.00 <5.00 mg/L 06/15/20 7:09 PM 3D ARTIST LABORATORY Blood BLOOD SPECIMEN / Unknown Venipuncture / Unknown 06/15/2024 5:14 PM 3D ARTIST 06/15/2024 5:14 PM 3D ARTIST Yamile James PA-C LAB - BLOOD ORDERABLES Final R esult LABORATORY [facility] [address] Lab (1st floor, no room number) [place] [address] * (ABNORMAL) Basic metabolic panel (06/15/2024 5:14 PM 3D ARTIST) Sodium 143 135 - 145 mmol/L 06/15/2024 7:09 PM [facility] Potassium 4.6 3.4 - 5.3 mmol/L 06/15/2024 7:09 PM [facility] Chloride 106 98 - 107 mmol/L 06/15/2024 7:09 PM [facility] Carbon Dioxide (CO2) 26 22 - 29 mmol/L 06/15/2024 7:09 PM [facility] Anion Gap 11 7 - 15 mmol/L 06/15/2024 7:09 PM [facility] Urea Nitrogen 26.3(H) 8.0 - 23.0 mg/dL 06/15/2024 7:09 PM [facility] Creatinine 1.18(H) 0.51 - 0.95 mg/dL 06/15/2024 7:09 PM [facility] GFR Estimate 46(L) >60 mL/min/1.7 3m2 06/15/2024 7:09 PM [facility] Comment:eGFR calculated usin g 2020 CKD-EPI equation. Calcium 9.8 8.8 - 10.4 mg/dL 06/15/2024 7:09 PM [facility] Comment:Reference intervals for this test were updated on 01/04/2024 to reflect our healthy population more accurately. There may be differences in the flagging of prior results with similar values performed with this method. Those prior results can be interpreted in the context of the updated reference intervals. Glucose 125(H) 70 - 99 mg/dL 06/15/2024 7:09 PM [facility] Blood BLOOD SPECIMEN / Unknown Venipuncture / Unknown 06/15/2024 5:14 PM 3D ARTIST 06/15/2024 5:14 PM 3D ARTIST us Yamile James PA-C LAB - BLOOD ORDERABLES Final R esult LABORATORY [facility] [address] Lab (1st floor, no room number) [place] [address], [facility] * (ABNORMAL) UA Macroscopic with reflex to Microscopic and Culture - Clinic Collect (06/15/2024 2:15 PM 3D ARTIST) Color Urine Yellow Colorless, Straw, Light Yellow, Yellow 06/15/2024 2:28 PM 3D ARTIST [facility] Appearance Urine Clear Clear 06/15/20 2:28 PM 3D ARTIST [facility] Glucose Urine Negative Negative mg/dL 06/15/2024 2:28 PM 3D ARTIST [facility] Bilirubin Urine Small(A) Negative 2:28 PM 3D ARTIST [facility] Ketones Urine 15(A) Negative mg/dL 06/15/2024 2:28 PM 3D ARTIST [facility] Specific [place] Urine >=1.030 1.003 - 1.035 06/15/2024 2:28 PM 3D ARTIST [facility] Blood Urine Trace(A) Negative 06/15/2024 2:28 PM 3D ARTIST [facility] pH Urine 5.5 5.0 - 7.0 06/15/2024 2:28 PM 3D ARTIST [facility] Protein Albumin Urine 100(A) Negative mg/dL 06/15/2024 2:28 PM 3D ARTIST [facility] Urobilinogen Urine 0.2 0.2, 1.0 E.U./dL 06/15/2024 2:28 PM 3D ARTIST [facility] Nitrite Urine Negative Negative 06/15/2024 2:28 PM 3D ARTIST [facility] Leukocyte Esterase Urine Moderate(A) Negative 06/15/2024 2:28 PM 3D ARTIST [facility] Urine URINE SPECIMEN OBTAINED BY CLEAN CATCH PROCEDURE / Unknown Non-blood Collection / Unknown 06/15/2024 2:15 PM 3D ARTIST 06/15/2024 2:15 PM 3D ARTIST us Esteban Gant MD LAB - URINE ORDERABLES Final Res ult LABORATORY [facility] Lab [address] [facility] Lab (no room number, 1st floor of [facility]) [address] * (ABNORMAL) Urine Microscopic Exam (06/15/2024 2:15 PM 3D ARTIST) Bacteria Urine Moderate( A) None Seen /HPF KAILYN 06/15/2024 2:35 PM 3D ARTIST [facility] RBC Urine 2-5(A) 0-2 /HPF /HPF KAILYN 06/15/2024 2:35 PM 3D ARTIST [facility] WBC Urine >100(A) 0-5 /HPF /HPF KAILYN 06/15/2024 2:35 PM 3D ARTIST [facility] Squamous Epithelials Urine Few(A) None Seen /LPF KAILYN 06/15/2024 2:35 PM 3D ARTIST [facility] Urine URINE SPECIMEN OBTAINED BY CLEAN CATCH PROCEDURE / Unknown Non-blood Collection / Unknown 06/15/2024 2:15 PM 3D ARTIST 06/15/2024 2:15 PM 3D ARTIST Esteban Gant MD LAB - URINE ORDERABLES Final Res ult Performing Organization Address [facility] Co de Phone Number LABORATORY [facility] Lab [address] [facility] (no room number, 1st floor of [facility]) [address] * (ABNORMAL) Urine Culture (06/15/2024 2:15 PM 3D ARTIST) Culture 10,000-50,000 CFU/mL Enterobacter cloacae complex(A) 06/16/2024 11:19 PM 3D ARTIST [facility] Urine URINE SPECIMEN OBTAINED BY CLEAN CATCH PROCEDURE / Unknown Non-blood Collection / Unknown 06/15/2024 2:15 PM 3D ARTIST 06/15/2024 2:28 PM 3D ARTIST Narrative Organism Antibiotic Method Susceptibility Enterobacter cloacae [...] ORDERABLES F inal Result UU IDD LABORATORY [facility] Inf. Diseases Diag. Lab [address] [facility], [address] [place] [address] * Albumin Random Urine Quantitative with Creat Ratio (03/16/2024 3:16 PM CDT) Pathologist [facility] Creatinine Urine mg/dL 106.0 mg/dL 03/17/2024 7:42 [...] control, and institution of therapy with an fiswsbjxrcz-kdhfardeww-jbrbak (JUANCARLOS) inhibitor (if the patient can tolerate it). Urine URINE SPECIMEN / Unknown Non-blood Collection / Unknown 03/16/2024 3:16 PM CDT 03/16/2024 3:16 PM CDT us Alfreda Ray PA-C LAB - URINE ORDERABLES F inal Result UU LABORATORY [facility] Core Lab [address] [facility], [address] [place] [address] * (ABNORMAL) Lipid panel reflex to direct [...] BLOOD ORDERABLES F inal Result UU LABORATORY [facility] Lab [address] [facility], [address] [place] [address] * (ABNORMAL) HEMOGLOBIN A1C (03/16/2024 3:09 PM CDT) Estimated Average Glucose 120(H) <117 mg/dL 03/16/2024 [...] BLOOD ORDERABLES F inal Result RV LABORATORY [facility] [facility] [place] Lab [address] [place] [address] [facility], 1st floor of clinic) [place] [address], [facility] * (ABNORMAL) Comprehensive metabolic panel (BMP [...] inal Result Performing Organization Address City/[facility]/ZIP Co de Phone Number UU LABORATORY [facility] Lab [address] [facility], [address] [phone] * Vitamin B12 (03/16/2024 3:09 PM CDT) [facility] Vitamin B12 869 232 - 1,245 pg/mL 03/17/2024 7:42 PM CDT UU LABORATORY Blood BLOOD SPECIMEN / Unknown Venipuncture / Unknown 03/16/2024 3:09 PM CDT 03/16/2024 3:09 PM CDT Alfreda Ray PA-C LAB - BLOOD ORDERABLES F inal Result Performing Organization Address City/[facility] de Phone Number LABORATORY [facility] Core Lab [address] [facility], [address] * DX Hip/Pelvis/Spine w Lateral (09/30/2020 12:30 PM CDT) Anatomical Region Laterality Modality Dexa Bone Mineral Den sity Narrative 10/04/2020 1:35 PM CDT BONE DENSITOMETRY [address] [address] 09/30/2020 PATIENT: Alexandria Bradshaw CHART: [id number] : 1940 AGE: [age] year old SEX: female REFERRING PROVIDER: Kelly Haley MD PROCEDURE: Bone density scanning was performed using DXA technology of the lumbar spine and hip. Scanning was performed on a Hövding scanner. Reporting is completed in the form [...] to another DXA performed on the same Hövding machine on 12/10/2014. LATERAL VERTEBRAL ASSESSMENT Procedure: Vertebral fracture assessment was performed in the lateral decubitus position using a Hövding densitometer. Indications for VFA: T-score of -1.0 or worse and age (female>69) Confounding factors for VFA: Arthritis/degenerative disc disease, rib shadows and scapular shadows. The LVA scan is interpretable from T9 to L4. VFA Findings: Using the semi-quantitative analysis of Shayy there was evidence of no spinal deformity VFA Impression: Alexandria Fregoso Cococecy has no vertebral fractures identified on the [...] COLONOSCOPY - HIM SCAN (08/26/2015 12:00 AM 3D ARTIST) 08/26/2015 Provider Outside PROCEDURES Final Result from Last 3 Months or Most Recently Relevant to Health Maintenance Insurance [facility] MEDICARE ADVANTAGE [facility] MEDICARE ADVANTAGE * Guarantor: Alexandria Bradshaw Account Type Relation to Patient Date of Phone Billing Address Medication Therapy Self 1940 [address] [place] [address] [facility] MEDICARE ADVANTAGE Advance Directives For more information, please contact: [phone] * Full Code (Latest Code Status on File) Date Activated Date Inactivated Comments 12/08/2021 8:37 PM 12/09/2021 3:06 PM All basic an d advanced life-sustaining interventions are performed as appropriate Question Answer Comments Code status determined by: Discussion with patie nt/ legal decision maker Care Teams Steel Roller Relationship Specialty Start Date End Date Alfreda Ray PA-C [address] [place] [address] [phone] PCP - General Family Medicine 12/30/21 Alfreda Ray PA-C [address] [place] [address] 404212 Referring Physician Family Medicine 12/31/21 Katrin Orellana PA-C [address] [facility] [address] [place], [place] [address] Physician Catering Administrative Assistant Dermatology 12/31/21 Shanna Vang PA-C [address] [place], [place] [address] Assigned Cancer Care Provider 01/10/22 Fransisco Eddy MD [address] [place] [address] [address] [place], [place] [address] Assigned Rheumatology Provider 05/09/22 Cristina Hsieh [facility] [address] [place] [address] LISBETH HERNANDEZ [address] Pharmacist Pharmacist 09/07/22 Alfreda Ray PA-C [address] [place] [address] Assigned PCP 08/29/22 Cristina Hsieh, [facility] [address] [facility] [address] [place] [address] Assigned MTM Pharmacist 09/26/22 Dakota Tatum MD [address] [place] [address] Cardiovascular Disease 03/25/23 Dakota Tatum MD [address] [place] [address] Assigned Heart and Vascular Provider 05/01/23 [place] [address] [address], [facility] [address] [place] [address] Assigned Musculoskeletal Provider 04/12/24
--- OUTSIDE RECORDS SUMMARY | 2024-06-23 00:18 | XMS_ITS | Encounter Summary ---
Author Organization [place] Address [address] [place] [address] Care Team Providers Care Plant Puller Name Role Phone Alfreda Ray PA-C Primary Care Provider + Alfreda Ray PA-C Unavailable Katrin Orellana PA-C Unavailable Shanna Vang PA-C Unavailable [phone] Fransisco Eddy MD Unavailable Cristina Hsieh [facility] Unavailable Alfreda Ray PA-C Unavailable Cristina Hsieh [facility] Unavailable Dakota Tatum MD Unavailable [phone] Dakota Tatum MD Unavailable [phone] Srinivas Marie DO Unavailable [phone] Encounter Details Date Type Department Care Team (Late st Contact Info) Description 06/07/2024 MyC Medical Advice [address] [phone] Alfreda Ray PA-C [address] [place] [address] Social History Tobacco Use Types Packs/Day [...] re latives? Once a week 03/15/2024 Attends Adventism Services Not on file 03/15 Active Member of Clubs or Organizations Not on f ile 03/15/2024 Attends Club or Organization Meetings Not on anu e 03/15/2024 Marital Status Not on file 03/15/2024 PHQ-2 Answer Date Recorded PHQ-2 Score 0 03/16/2024 [facility] of Occupat ional Health - Occupational Stress [...] in an abandoned building, in an overnight care home, or couch-surfing.) Yes 03/15/2024 Are you [...] Sex Assigned at Female 08/17/2018 7:56 AM COLOR MAKER Legal Sex Female 4:24 AM COLOR MAKER Gender Identity Female 08/17/2018 7:56 AM COLOR MAKER Sexual Orientation Straight 08/17/2018 7: 56 AM COLOR MAKER documented as of this encounter Plan of Treatment Upcoming Encounters Date Type Department Care Team (Late st Contact Info) Description 09/07/2024 10:00 AM CDT Office Visit [facility] [address] [phone] Fransisco Eddy MD [address] [place] [address] 950165 03/29/2025 3:40 PM CDT Office Visit [address] [phone] Alfreda Ray PA-C [address] [place] [address] 354092 documented as of this encounter Visit Diagnoses Not on filedocumented in this encounter Additional Health Concerns Assessment Noted Time PHQ-9 Depression Total Score: 5 03/09/20 23 10:57 AM CDT documented as of this encounter Care Teams Plant Puller Relationship Specialty Start Date End Date Alfreda Ray PA-C [address] [place] [address] 21072 PCP - General Family Medicine 12/30/21 Alfreda Ray PA-C [address] [place] [address] 90953 Referring Physician Family Medicine 12/31/21 Katrin Orellana PA-C [address] [place] [address] 98 [place], [place] 761505 Physician Information Assurance Analyst Dermatology 12/31/21 Shanna Vang PA-C [address] 850604 Assigned Cancer Care Provider 01/10/22 Fransisco Eddy MD [address] [place] [address] 213325 Assigned Rheumatology Provider 05/09/22 Cristina Hsie[address] [facility] [address] [facility] LISBETH HERNANDEZ [id number] Pharmacist Pharmacist 09/07/22 Alfreda Ray PA-C [address] [place] [address] 52374 Assigned PCP 08/29/22 Cristina Hsieh [facility] [address] [id number] Assigned MTM Pharmacist 09/26/22 Dakota Tatum MD 6 [place] [address] Cardiovascular Disease 03/25/23 Dakota Tatum MD 6 [place], [place] 473655 Assigned Heart and Vascular Provider 05/01/23 [place] [address] CE[address] GASTELUM, [address] [address] Assigned Musculoskeletal Provider 04/12/24 documented as of this encounter
--- OUTSIDE RECORDS SUMMARY | 2024-06-23 00:18 | XMS_ITS | Encounter Summary ---
Author Organization [place] Address [address] [place] [address] Care Team Providers Care Asphalt Blender Name Role Phone Alfreda Ray PA-C Primary Care Provider + Alfreda Ray PA-C Unavailable [phone] Katrin Orellana PA-C Unavailable [phone] Shanna Vang PA-C Unavailable [phone] Fransisco Eddy MD Unavailable Cristina Hsieh [facility] Unavailable Alfreda Ray PA-C Unavailable [phone] Cristina Hsieh [facility] Unavailable Daktoa Tatum MD Unavailable [phone] Dakota Tatum MD Unavailable [phone] Srinivas Marie DO Unavailable Reason for Visit * Reason Comments Derm Problem Entered automaticall y based on patient selection in [employer] Encounter Details Date Type Department Care Team (Late Contact Info) Description 06/07/2024 3:40 PM RUBBER PRESS OPERATOR E-Visit [address] [phone] Alfreda Ray PA-C [address] [place] [address] Derm Problem (Entered automatically based ... Social [...] re latives? Once a week 03/15/2024 Attends Pentecostalism Services Not on file 03/15 Active Member of Clubs or Organizations Not on f ile 03/15/2024 Attends Club or Organization Meetings Not on anu e 03/15/2024 Marital Status Not on file 03/15/2024 PHQ-2 Answer Date Recorded PHQ-2 Score 0 03/16/2024 [facility] of Occupat ional Health - Occupational Stress [...] in an abandoned building, in an overnight fci, or couch-surfing.) Yes 03/15/2024 Are you worried [...] Sex Assigned at Female 08/17/2018 7:56 AM RUBBER PRESS OPERATOR Legal Sex Female 4:24 AM RUBBER PRESS OPERATOR Gender Identity Female 08/17/2018 7:56 AM RUBBER PRESS OPERATOR Sexual Orientation Straight 08/17/2018 7: 56 AM RUBBER PRESS OPERATOR documented as of this encounter Miscellaneous Notes * Telephone Encounter - Alfreda Ray PA-C - 06/08/2024 3:29 PM RUBBER PRESS OPERATOR Provider E-Visit time total (minutes): 6 minutes ER PRESS OPERATOR documented in this encounter Plan of Treatment Upcoming Encounters Date Type Department Care Team (Late st Contact Info) Description 09/07/2024 10:00 AM CDT Office Visit [facility] [address] [phone] Fransisco Eddy MD [address] [place] [address] 326515 03/29/2025 3:40 PM CDT Office Visit [place] [phone] [place] [phone] Alfreda Ray PA-C [address] [place] [address] 486312 documented as of this encounter Visit Diagnoses Diagnosis 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 documented in this encounter Additional Health Concerns Assessment Noted Time PHQ-9 Depression Total Score: 5 03/09/20 23 10:57 AM CDT documented as of this encounter Care Teams Asphalt Blender Relationship Specialty Start Date End Date Alfreda Ray PA-C [address] [place] [address] 228302 PCP - General Family Medicine 12/30/21 Alfreda Ray PA-C [address] [place] [address] 396572 Referring Physician Family Medicine 12/31/21 Katrin Orellana PA-C [address] [place] [address] Physician Director Geophysical Laboratory Dermatology 12/31/21 Shanna Vang PA-C [facility] [address]. [address] [place] [address] 386774 Assigned Cancer Care Provider 01/10/22 Fransisco Eddy MD [address] [place] [address] 912305 Assigned Rheumatology Provider 05/09/22 Cristina Hsieh, [facility] [address] [place] [address] LISBETH HERNANDEZ [address] Pharmacist Pharmacist 09/07/22 Alfreda Ray PA-C [address] [place] [address] 401392 Assigned PCP 08/29/22 Cristina Hsieh, [facility] [address] [address] Assigned MTM Pharmacist 09/26/22 Dakota Tatum MD [address] [place] [address] 883675 Cardiovascular Disease 03/25/23 Dakota Tatum MD [address] [place] [address] 866555 Assigned Heart and Vascular Provider 05/01/23 [place] [address] [place] , [facility] [place] [address] [place] [address] Assigned Musculoskeletal Provider 04/12/24 documented as of this encounter
--- OUTSIDE RECORDS SUMMARY | 2024-06-23 00:18 | XMS_ITS | Encounter Summary ---
Author Organization [place] Address [address] [place] [address] Care Team Providers Care Aviation Consultant Name Role Phone Alfreda Ray PA-C Primary Care Provider + Alfreda Ray PA-C Unavailable Katrin Orellana PA-C Unavailable [phone] Shanna Vang PA-C Unavailable [phone] Fransisco Eddy MD Unavailable Cristina Hsieh [facility] Unavailable Alfreda Ray PA-C Unavailable Cristina Hsieh [facility] Unavailable Dakota Tatum MD Unavailable [phone] Dakota Tatum MD Unavailable [phone] Srinivas Marie DO Unavailable [phone] Encounter Details Date Type Department Care Team (Late st Contact Info) Description 06/17/2024 [facility] [address] [place] [phone] Yamile James PA-C [address] [place] [address] [phone] Complicated UTI (urinary tract infection) (Primary Dx) [...] re latives? Once a week 03/15/2024 Attends Pentecostal Services Not on file 03/15 Active Member of Clubs or Organizations Not on f ile 03/15/2024 Attends Club or Organization Meetings Not on anu e 03/15/2024 Marital Status Not on file 03/15/2024 PHQ-2 Answer Date Recorded PHQ-2 Score 0 03/16/2024 [facility] [place] of Occupat ional Health - Occupational Stress [...] in an abandoned building, in an overnight fpc, or couch-surfing.) Yes 03/15/2024 Are you worried [...] Sex Assigned at Female 08/17/2018 7:56 AM CAUSE ANALYST Legal Sex Female 4:24 AM CAUSE ANALYST Gender Identity Female 08/17/2018 7:56 AM CAUSE ANALYST Sexual Orientation Straight 08/17/2018 7: 56 AM CAUSE ANALYST documented as of this encounter Plan of Treatment Upcoming Encounters Date Type Department Care Team (Late st Contact Info) Description 09/07/2024 10:00 AM CDT Office Visit [facility] [address] [place] [phone] Fransisco Eddy MD [address] [place] [address] 367535 03/29/2025 3:40 PM CDT Office Visit [address] [phone] Alfreda Ray PA-C [address] [place] [address] 877342 documented as of this encounter Visit Diagnoses Diagnosis Complicated UTI (urinary tract infection)- Primary Urinary tract infection, site not specified documented in this encounter Additional Health Concerns Assessment Noted Time PHQ-9 Depression Total Score: 5 03/09/20 10:57 AM CDT documented as of this encounter Care Teams Aviation Consultant Relationship Specialty Start Date End Date Alfreda Ray PA-C [address] [place] [address] PCP - General Family Medicine 12/30/21 Alfreda Ray PA-C [address] [place] [address] Referring Physician Family Medicine 12/31/21 Katrin Orellana PA-C [address] [place] [address] Physician Energy Project Manager Dermatology 12/31/21 Shanna Vang PA-C [address] [place] [address] Assigned Cancer Care Provider 01/10/22 Fransisco Eddy MD [address] [place] [address] Assigned Rheumatology Provider 05/09/22 Cristina Hsieh [facility] [address] [facility] [address] Pharmacist Pharmacist 09/07/22 Alfreda Ray PA-C [address] [place] [address] 22148 Assigned PCP 08/29/22 Cristina Hsieh [facility] [address] [address] Assigned MTM Pharmacist 09/26/22 Dakota Tatum MD 6 [place] [address] Cardiovascular Disease 03/25/23 Dakota Tatum MD [address] [place], [place] 527505 Assigned Heart and Vascular Provider 05/01/23 [place] [address] CELE GASTELUM, [address] [address] Assigned Musculoskeletal Provider 04/12/24 documented as of this encounter
--- OUTSIDE RECORDS SUMMARY | 2024-06-23 00:18 | XMS_ITS | Encounter Summary ---
Author Organization [place] Address [address] [place] [address] Care Team Providers Care Scratcher Tender Name Role Phone lAfreda Ray PA-C Primary Care Provider + Alfreda Ray PA-C Unavailable [phone] Katrin Orellana PA-C Unavailable Shanna Vang-Gallito Unavailable [phone] Fransisco Eddy MD Unavailable Cristina Hsieh [facility] Unavailable Alfreda Ray PA-C Unavailable [phone] Cristina Hsieh [facility] Unavailable Dakota Tatum MD Unavailable [phone] Dakota Tatum MD Unavailable [phone] Srinivas Marie DO Unavailable [phone] Reason for Visit * Reason Comments Medication Therapy Management Encounter Details Date Type Department Care Team (Latest Contact Info) Description 06/02/2024 10:30 AM ICU STAFF NURSE Virtual Visit [facility] Rheumatology [facility] [address] [address] Fransisco Eddy MD [address] [place] [address] Cristina Hsieh, [facility] 1600 [facility] [address] [place] [address] Rheumatoid arthritis involving multiple sites with positive [...] re latives? Once a week 03/15/2024 Attends Confucianism Services Not on file 03/15 Active Member of Clubs or Organizations Not on f ile 03/15/2024 Attends Club or Organization Meetings Not on anu e 03/15/2024 Marital Status Not on file 03/15/2024 PHQ-2 Answer Date Recorded PHQ-2 Score 0 03/16/2024 [facility] of Occupat ional Health - Occupational Stress [...] in an abandoned building, in an overnight custodial, or couch-surfing.) Yes 03/15/2024 Are you worried [...] Sex Assigned at Female 08/17/2018 7:56 AM ICU STAFF NURSE Legal Sex Female 4:24 AM ICU STAFF NURSE Gender Identity Female 08/17/2018 7:56 AM ICU STAFF NURSE Sexual Orientation Straight 08/17/2018 7: 56 AM ICU STAFF NURSE documented as of this encounter Patient Instructions * Patient Instructions* Cristina Hsieh, [facility] - 06/02/2024 10:30 AM ICU STAFF NURSE Recommendations from today's MTM visit: 1. Restart [...] receive an email or text message from [place] with a link to a survey related to your ???clinical pharmacist. To schedule another MTM appointment, please call the clinic directly or you may call the MTM scheduling line at [phone]. My Clinical Pharmacist's contact information: Please feel free to contact me with any questions or concerns you have. Cristina Hsieh, [place] Medication Therapy Management Pharmacist [facility]ology [facility] STAFF NURSE documented in this encounter Progress Notes * [...] one bad sore on the outside of [facility] and two on the inside. Has also [...] summary of these recommendations was sent via [employer]. Cristina Hsieh, MoiD Medication Therapy Management Pharmacist [facility] Rhe[facility]ology Clinic Telemedicine Visit Details [...] CPA Identified Date: 06/02/2024 Completed Date: 06/02/2024 STAFF NURSE documented in this encounter Plan of Treatment Upcoming Encounters Date Type Department Care Team (Late st Contact Info) Description 09/07/2024 10:00 AM CDT Office Visit [facility] [address] [phone] Fransisco Eddy MD [address] [place] [address] 347505 03/29/2025 3:40 PM CDT Office Visit [address] [phone] Alfreda Ray PA-C [address] [place] [address] 759032 documented as of this encounter Visit Diagnoses Diagnosis 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 Severe obesity (BMI 35.0-39.9) with comorbidity (H) - prediabetes, hypertension documented in this encounter Additional Health Concerns Assessment Noted Time PHQ-9 Depression Total Score: 5 03/09/20 23 10:57 AM CDT documented as of this encounter Care Teams Scratcher Tender Relationship Specialty Start Date End Date Alfreda Ray PA-C [address] [place] [address]26 PCP - General Family Medicine 12/30/21 Alfreda Ray PA-C [address] [place] [address] Referring Physician Family Medicine 12/31/21 Katrin Orellana PA-C [address] [place] [address] 98 [place] [address] Physician Boat Patcher Plastic Dermatology 12/31/21 Shanna Vang PA-C [address] [place] [address] 873074 Assigned Cancer Care Provider 01/10/22 Fransisco Eddy MD [address] [place] [address] 439765 Assigned Rheumatology Provider 05/09/22 Cristina Hsieh [facility] 3[address] [facility] LISBETH HERNANDEZ [address] Pharmacist Pharmacist 09/07/22 Alfreda Ray PA-C [address] [place] [address] Assigned PCP 08/29/22 Cristina Hsieh [facility] 1600 [facility] [address] [place] [address] Assigned MTM Pharmacist 09/26/22 Dakota Tatum MD [address] [place] [address] Cardiovascular Disease 03/25/23 Dakota Tatum MD [address] [place] [address] 564335 Assigned Heart and Vascular Provider 05/01/23 [place] [address] CELE GASTELUM, [facility] [address] [place] [address] Assigned Musculoskeletal Provider 04/12/24 documented as of this encounter
--- OUTSIDE RECORDS SUMMARY | 2024-06-23 00:18 | XMS_ITS | Encounter Summary ---
Author Organization [place] Address [address] [place] [address]991 Care Team Providers Care Dance Director Name Role Phone Alfreda Ray PA-C Primary Care Provider + Alfreda Ray PA-C Unavailable Katrin Orellana PA-C Unavailable [phone] Shanna Vang PA-C Unavailable [phone] Fransisco Eddy MD Unavailable Ran Hsieh [facility] Unavailable Alfreda Ray PA-C Unavailable [phone] Ran Hsieh [facility] Unavailable Dakota Tatum MD Unavailable [phone] Dakota Tatum MD Unavailable [phone] Srinivas Marie DO Unavailable [phone] Encounter Details Date Type Department Care Team (Late st Contact Info) Description 06/06/[address] [phone] Alfreda Ray PA-C [address] [place] [address] Social History Tobacco Use Types Packs/Day [...] re latives? Once a week 03/15/2024 Attends Mu-Ism Services Not on file 03/15 Active Member of Clubs or Organizations Not on f ile 03/15/2024 Attends Club or Organization Meetings Not on anu e 03/15/2024 Marital Status Not on file 03/15/2024 PHQ-2 Answer Date Recorded PHQ-2 Score 0 03/16/2024 [facility] of Occupat ional Health - Occupational Stress [...] in an overnight residential, or couch-surfing.) Yes 03/15/2024 Are you worried [...] Sex Assigned at Female 08/17/2018 7:56 AM MANUFACTURING ENGINEERING TECHNICIAN Legal Sex Female 4:24 AM MANUFACTURING ENGINEERING TECHNICIAN Gender Identity Female 08/17/2018 7:56 AM MANUFACTURING ENGINEERING TECHNICIAN Sexual Orientation Straight 08/17/2018 7: 56 AM MANUFACTURING ENGINEERING TECHNICIAN documented as of this encounter Progress Notes * Alfreda Ray PA-C - 06/06/2024 3:02 PM CST Images from the original note were not included. Ran Hsieh, [facility] Alfreda Ray PA-C Could I ask your [...] Alfreda Ray PA-C Sent: 06/05/2024 10:21 AM MANUFACTURING ENGINEERING TECHNICIAN To: Ran Hsieh RPH Subject: RE: Cold [...] message. Thanks! Alfreda Ray MBA, [facility], [facility] ----- Message ----- From: Ran Hsieh, [facility] Sent: 06/02/2024 11:35 AM MANUFACTURING ENGINEERING TECHNICIAN To: Alfreda Ray PA-C Subject: Cold sores [...] Ran Hsieh, PharmD Medication Therapy Management Pharmacist [facility] FACTURING ENGINEERING TECHNICIAN * Alfreda Ray PA-C - 06/06/2024 3:02 PM CST Images from the original note were not included. Triage: patient noting increased coldsores. Wondering about preventative strategies. Recommend evisit or video visit to start suppressive treatment. Please assist with advising on these options to get started. See note from [place] below for details. Alfreda Ray MBA, MS, [facility] FACTURING ENGINEERING TECHNICIAN documented in this encounter Miscellaneous Notes * Telephone Encounter - Sabra Gonzalez RN - 06/06/2024 4:33 PM CST Called and spoke with patient. Advised of providers recommendation. Patient stated an understanding and agreed with plan. She thinks she can do an e-visit. If she has questions, she will call us back. SABRA GONZALEZ RN on 06/06/2024 at 4:34 PM [facility] FACTURING ENGINEERING TECHNICIAN * Telephone Encounter - Alfreda Ray PA-C - 06/06/2024 3:02 PM MANUFACTURING ENGINEERING TECHNICIAN ----- Message from RAN HSIEH sent at 06/06/2024 2:37 PM MANUFACTURING ENGINEERING TECHNICIAN ----- Regarding: RE: Cold sores Could I [...] Alfreda Ray PA-C Sent: 06/05/2024 10:21 AM MANUFACTURING ENGINEERING TECHNICIAN To: Ran Hsieh RPH Subject: RE: Cold [...] Thanks! Alfreda Ray MBA, MS, [facility] ----- Message ----- From: Ran Hsieh [facility] Sent: 06/02/2024 11:35 AM MANUFACTURING ENGINEERING TECHNICIAN To: Alfreda Ray PA-C Subject: Cold sores [...] Ran Hsieh, PharmD Medication Therapy Management Pharmacist [facility] FACTURING ENGINEERING TECHNICIAN documented in this encounter Plan of Treatment Upcoming Encounters Date Type Department Care Team (Late st Contact Info) Description 09/07/2024 10:00 AM CDT Office Visit [facility] [address] [phone] Fransisco Eddy MD [address] [place] [address] 03/29/2025 3:40 PM CDT Office Visit [address] [phone] Alfreda Ray PA-C [address] [place] [address] [phone] documented as of this encounter Visit Diagnoses Not on filedocumented in this encounter Additional Health Concerns Assessment Noted Time PHQ-9 Depression Total Score: 5 03/09/20 23 10:57 AM CDT documented as of this encounter Care Teams Dance Director Relationship Specialty Start Date End Date Alfreda Ray PA-C [address] [place] [address] PCP - General Family Medicine 12/30/21 Alfreda Ray PA-C [address] [place] [address] Referring Physician Family Medicine 12/31/21 Katrin Orellana PA-C [address] [facility] 98 [place], [place] 779865 Physician Taper And Floater Dermatology 12/31/21 Shanna Vang PA-C [address] [place], [place] 914164 Assigned Cancer Care Provider 01/10/22 Fransisco Eddy MD 515 [facility] 88 [place], [place] 023235 Assigned Rheumatology Provider 05/09/22 Ran Hsieh [facility] [address] [facility] [address] [place], [place] [phone] Pharmacist Pharmacist 09/07/22 Alfreda Ray PA-C [address] [place] [address] [phone] Assigned PCP 08/29/22 Ran Hsieh [facility] [address] [address] Assigned MTM Pharmacist 09/26/22 Dakota Tatum MD 6 [place] [address] Cardiovascular Disease 03/25/23 Dakota Tatum MD 6 [place] [address] Assigned Heart and Vascular Provider 05/01/23 [place] [address] CE[address] GASTELUM, [address] [address] Assigned Musculoskeletal Provider 04/12/24 documented as of this encounter
--- OUTSIDE RECORDS SUMMARY | 2024-06-23 00:18 | XMS_ITS | Encounter Summary ---
Author Organization [place] Address [address] [place] [address] Care Team Providers Care Electric Meter Tester Shop Name Role Phone Alfreda Ray PA-C Primary Care Provider + Alfreda Ray PA-C Unavailable [phone] Katrin Orellana PA-C Unavailable [phone] Shanna Vang PA-C Unavailable [phone] Fransisco Eddy MD Unavailable [phone] Cristina Hsieh [facility] Unavailable [phone] Alfreda Ray PA-C Unavailable [phone] Cristina Hsieh [facility] Unavailable [phone] Dakota Tatum MD Unavailable [phone] Dakota Tatum MD Unavailable [phone] Srinivas Marie DO Unavailable [phone] Reason for Referral * Clinically Administered Medications (Routine) - Closed Specialty Diagnoses / Procedures Referred By Sharlene t Referred To Contact Diagnoses Complicated UTI (urinary tract infection) Procedures ZZC CEFTRIAXONE NA INJ /250MG Yamile James PA-C [address] [place] [address] Phone: tel: fax: Referral ID Status Reason Start Date Expiration Date Visits Re quested Visits Authorized [id number] Closed 06/15/2024 06/15/2025 1 1 TRICIAN CONSTRUCTOR SUPERVISOR Reason for Visit * Reason Comments Urgent Care Urinary problem x 2 day, pain with urination,burning sensation, frequency,back pain, * Clinically Administered Medications (Routine) - Closed Specialty Diagnoses / Procedures Referred By Contac t Referred To Contact Diagnoses Complicated UTI (urinary tract infection) Procedures ZZC CEFTRIAXONE NA INJ /250MG Yamile James PA-C [address] [place] [address] Phone: tel: fax: Referral ID Status Reason Start Date Expiration Date Visits Re quested Visits Authorized [id number] Closed 06/15/2024 06/15/2025 1 1 Encounter Details Date Type Department Care Team (Late st Contact Info) Description 06/15/2024 2:05 PM ELECTRICIAN CONSTRUCTOR SUPERVISOR Office Visit [facility] [address] [place] [address] Yamile James PA-C [address] [place] [address] [phone] Complicated UTI (urinary tract infection) (Primary Dx); [...] re latives? Once a week 03/15/2024 Attends Jain Services Not on file 03/15 Active Member of Clubs or Organizations Not on f ile 03/15/2024 Attends Club or Organization Meetings Not on anu e 03/15/2024 Marital Status Not on file 03/15/2024 PHQ-2 Answer Date Recorded PHQ-2 Score 0 03/16/2024 [facility] - Occupational Stress Questionnaire Answer Date Recorded [...] in an overnight longterm, or couch-surfing.) Yes 03/15/2024 Are you worried [...] Assigned at Female 08/17/2018 7:56 AM ELECTRICIAN CONSTRUCTOR SUPERVISOR Legal Sex Female 4:24 AM ELECTRICIAN CONSTRUCTOR SUPERVISOR Gender Identity Female 08/17/2018 7:56 AM ELECTRICIAN CONSTRUCTOR SUPERVISOR Sexual Orientation Straight 08/17/2018 7: 56 AM ELECTRICIAN CONSTRUCTOR SUPERVISOR documented as of this encounter Last Filed Vital Signs Vital Sign Reading Time Taken Comments Blood Pressure 136/70 06/15/2024 6:10 PM ELECTRICIAN CONSTRUCTOR SUPERVISOR Pulse 64 06/15/2024 4:35 PM ELECTRICIAN CONSTRUCTOR SUPERVISOR Temperature 36.8 C (98.2 F) 06/15/2024 4:35 PM ELECTRICIAN CONSTRUCTOR SUPERVISOR Respiratory Rate 18 06/15/2024 4:35 PM ELECTRICIAN CONSTRUCTOR SUPERVISOR Oxygen Saturation 97% 06/15/2024 4:35 PM ELECTRICIAN CONSTRUCTOR SUPERVISOR Inhaled Oxygen Concentration - - Weight 94.3 kg (208 lb) 06/15/2024 4:35 PM ELECTRICIAN CONSTRUCTOR SUPERVISOR Height - - Body Mass Index 38.04 05/04/2024 12:20 PM ELECTRICIAN CONSTRUCTOR SUPERVISOR documented in this encounter Patient Instructions * Patient Instructions* Yamile James PA-C - 06/15/2024 2:05 PM ELECTRICIAN CONSTRUCTOR SUPERVISOR You are being treated for kidney infection (complicated urinary tract infection) Take the medication prescribed as indicated Will follow-up if we need to change medication when urine culture results come back Follow-up in the emergency room if symptoms worsen any hour TRICIAN CONSTRUCTOR SUPERVISOR TRICIAN CONSTRUCTOR SUPERVISOR TRICIAN CONSTRUCTOR SUPERVISOR * Attachments The following attachments cannot be sent through Care Everywhere. * Pyelonephritis (Liberian) documented in this encounter Progress Notes * [...] Ketones Urine 15 (A) Negative mg/dL Specific Tollhouse Urine >=1.030 1.003 - 1.035 Blood Urine [...] Status --------- ------ CBC with platelets and d...[[id number]] Abnormal Final result Please view results for [...] factor (H) - Dr. Fransisco Eddy @ [facility] - on Humira & hydroxychloroquine [...] normal. Behavior: Behavior normal. Yamile James PA-C TRICIAN CONSTRUCTOR SUPERVISOR documented in this encounter Plan of Treatment Upcoming Encounters Date Type Department Care Team (Late st Contact Info) Description 09/07/2024 10:00 AM CDT Office Visit [address] [place] [phone] Fransisco Eddy MD [address] [place] [address] 03/29/2025 3:40 PM CDT Office Visit [address] [address] Alfreda Ray PA-C [address] [place] [address] [phone] documented as of this encounter Procedures Procedure Name Priority Date/Time Associated Diagnosis Comments CBC WITH PLATELETS AND DIFFERENTIAL STAT 06/15/2024 5:14 PM ELECTRICIAN CONSTRUCTOR SUPERVISOR Flank pain CBC WITH PLATELETS & DIFFERENTIAL STAT 06/15/2024 5:14 PM ELECTRICIAN CONSTRUCTOR SUPERVISOR Flank pain CRP INFLAMMATION STAT 06/15/2024 5:14 PM ELECTRICIAN CONSTRUCTOR SUPERVISOR Flank pain BASIC METABOLIC PANEL STAT 06/15/2024 5:14 PM ELECTRICIAN CONSTRUCTOR SUPERVISOR Flank pain UA MACROSCOPIC WITH REFLEX TO MICRO AND CULTURE Routine 06/15/2024 2:15 PM ELECTRICIAN CONSTRUCTOR SUPERVISOR Dysuria URINE MICROSCOPIC EXAM Routine 06/15/2024 2:15 PM ELECTRICIAN CONSTRUCTOR SUPERVISOR Dysuria URINE CULTURE Routine 06/15/2024 2:15 PM ELECTRICIAN CONSTRUCTOR SUPERVISOR Dysuria documented in this encounter Results * (ABNORMAL) CBC with platelets and differential (06/15/2024 5:14 PM ELECTRICIAN CONSTRUCTOR SUPERVISOR) WBC Count 5.3 4.0 - 11.0 10e3/uL 06/15/2024 5:37 PM ELECTRICIAN CONSTRUCTOR SUPERVISOR [facility] RBC Count 3.23(L) 3.80 - 5.20 10e6/uL 06/15/2024 5:37 PM ELECTRICIAN CONSTRUCTOR SUPERVISOR [facility] Hemoglobin 10.9(L) 11.7 - 15.7 g/dL 06/15/2024 5:37 PM ELECTRICIAN CONSTRUCTOR SUPERVISOR [facility] Hematocrit 34.2(L) 35.0 - 47.0 % 06/15/2024 5:37 PM ELECTRICIAN CONSTRUCTOR SUPERVISOR [facility] MCV 106(H) 78 - 100 fL 06/15/2024 5:37 PM ELECTRICIAN CONSTRUCTOR SUPERVISOR [facility] MCH 33.7(H) 26.5 - 33.0 pg 06/15/2024 5:37 PM ELECTRICIAN CONSTRUCTOR SUPERVISOR [facility] MCHC 31.9 31.5 - 36.5 g/dL 06/15/2024 5:37 PM ELECTRICIAN CONSTRUCTOR SUPERVISOR [facility] RDW 13.3 10.0 - 15.0 % 06/15/2024 5:37 PM ELECTRICIAN CONSTRUCTOR SUPERVISOR [facility] Platelet Count 302 150 - 450 10e3/uL 06/15/2024 5:37 PM ELECTRICIAN CONSTRUCTOR SUPERVISOR [facility] % Neutrophils 65 % 06/15/2024 5:37 PM ELECTRICIAN CONSTRUCTOR SUPERVISOR [facility] % Lymphocytes 26 % 06/15/2024 5:37 PM ELECTRICIAN CONSTRUCTOR SUPERVISOR [facility] % Monocytes 8 % 06/15/2024 5:37 PM ELECTRICIAN CONSTRUCTOR SUPERVISOR [facility] % Eosinophils 0 % 06/15/2024 5:37 PM ELECTRICIAN CONSTRUCTOR SUPERVISOR [facility] % Basophils 0 % 06/15/2024 5:37 PM ELECTRICIAN CONSTRUCTOR SUPERVISOR [facility] % Immature Granulocytes 1 % 06/15/2024 5:37 PM ELECTRICIAN CONSTRUCTOR SUPERVISOR [facility] Absolute Neutrophils 3.4 1.6 - 8.3 10e3/uL 06/15/2024 5:37 PM ELECTRICIAN CONSTRUCTOR SUPERVISOR [facility] Absolute Lymphocytes 1.4 0.8 - 5.3 10e3/uL 06/15/2024 5:37 PM ELECTRICIAN CONSTRUCTOR SUPERVISOR [facility] Absolute Monocytes 0.4 0.0 - 1.3 10e3/uL 06/15/2024 5:37 PM ELECTRICIAN CONSTRUCTOR SUPERVISOR [facility]ORY Absolute Eosinophils 0.0 0.0 - 0.7 10e3/uL 06/15/2024 5:37 PM ELECTRICIAN CONSTRUCTOR SUPERVISOR LABORATORY Absolute Basophils 0.0 0.0 - 0.2 10e3/uL 06/15/2024 5:37 PM ELECTRICIAN CONSTRUCTOR SUPERVISOR LABORATORY Absolute Immature Granulocytes 0.0 <=0.4 10e3/uL 06/15/2024 5:37 PM ELECTRICIAN CONSTRUCTOR SUPERVISOR [facility]ATORY Blood BLOOD SPECIMEN / Unknown Venipuncture / Unknown 06/15/2024 5:14 PM ELECTRICIAN CONSTRUCTOR SUPERVISOR 06/15/2024 5:14 PM ELECTRICIAN CONSTRUCTOR SUPERVISOR us Yamile James PA-C LAB - BLOOD ORDERABLES Final R esult LABORATORY [facility] [address] [facility] Lab (no room number, 1st floor of clinic) [place] [address], [facility] * (ABNORMAL) Basic metabolic panel (06/15/2024 5:14 PM ELECTRICIAN CONSTRUCTOR SUPERVISOR) Sodium 143 135 - 145 mmol/L 06/15/2024 7:09 PM [facility] Potassium 4.6 3.4 - 5.3 mmol/L 06/15/2024 7:09 PM [facility] Chloride 106 98 - 107 mmol/L 06/15/2024 7:09 PM [facility] Carbon Dioxide (CO2) 26 22 - 29 mmol/L 06/15/2024 7:09 PM [facility] Anion Gap 11 7 - 15 mmol/L 06/15/2024 7:09 PM [facility] Urea Nitrogen 26.3(H) 8.0 - 23.0 mg/dL 06/15/2024 7:09 PM [facility] Creatinine 1.18(H) 0.51 - 0.95 mg/dL 06/15/2024 7:09 PM [facility] GFR Estimate 46(L) >60 mL/min/1.7 3m2 06/15/2024 7:09 PM [facility] Comment:eGFR calculated us2020 CKD-EPI equation. Calcium 9.8 8.8 - 10.4 mg/dL 06/15/2024 7:09 PM [facility] Comment:Reference intervals for this test were updated on 01/04/2024 to reflect our healthy population more accurately. There may be differences in the flagging of prior results with similar values performed with this method. Those prior results can be interpreted in the context of the updated reference intervals. Glucose 125(H) 70 - 99 mg/dL 06/15/2024 7:09 PM ELECTRICIAN CONSTRUCTOR SUPERVISOR LABORATORY Blood BLOOD SPECIMEN / Unknown Venipuncture / Unknown 06/15/2024 5:14 PM ELECTRICIAN CONSTRUCTOR SUPERVISOR 06/15/2024 5:14 PM ELECTRICIAN CONSTRUCTOR SUPERVISOR Yamile BORRERO-C LAB - BLOOD ORDERABLES Final R esult [facility] [address] Lab (1st floor, no room number) [address] * CRP, inflammation (06/15/2024 5:14 PM ELECTRICIAN CONSTRUCTOR SUPERVISOR) CRP Inflammation <3.00 <5.00 mg/L 06/15/20 7:09 PM ELECTRICIAN CONSTRUCTOR SUPERVISOR LABORATORY Blood BLOOD SPECIMEN / Unknown Venipuncture / Unknown 06/15/2024 5:14 PM ELECTRICIAN CONSTRUCTOR SUPERVISOR 06/15/2024 5:14 PM ELECTRICIAN CONSTRUCTOR SUPERVISOR Yamile BORRERO-C LAB - BLOOD ORDERABLES Final R esult Performing Organization Address City/[facility]/ZIP Co de Phone Number [facility], no room number[facility] [address] * (ABNORMAL) Urine Culture (06/15/2024 2:15 PM ELECTRICIAN CONSTRUCTOR SUPERVISOR) Culture 10,000-50,000 CFU/mL Enterobacter cloacae complex(A) 06/16/2024 11:19 PM ELECTRICIAN CONSTRUCTOR SUPERVISOR [facility] Urine URINE SPECIMEN OBTAINED BY CLEAN CATCH PROCEDURE / Unknown Non-blood Collection / Unknown 06/15/2024 2:15 PM ELECTRICIAN CONSTRUCTOR SUPERVISOR 06/15/2024 2:28 PM ELECTRICIAN CONSTRUCTOR SUPERVISOR Narrative Organism Antibiotic Method Susceptibility Enterobacter cloacae [...] ORDERABLES F inal Result [facility] Inf. Diseases Diag. Lab [address] [facility], [address] [place] [address], [facility] * (ABNORMAL) Urine Microscopic Exam (06/15/2024 2:15 PM ELECTRICIAN CONSTRUCTOR SUPERVISOR) Bacteria Urine Moderate( A) None Seen /HPF KAILYN 06/15/2024 2:35 PM ELECTRICIAN CONSTRUCTOR SUPERVISOR [facility] RBC Urine 2-5(A) 0-2 /HPF /HPF KAILYN 06/15/2024 2:35 PM ELECTRICIAN CONSTRUCTOR SUPERVISOR [facility] WBC Urine >100(A) 0-5 /HPF /HPF KAILYN 06/15/2024 2:35 PM ELECTRICIAN CONSTRUCTOR SUPERVISOR [facility] Squamous Epithelials Urine Few(A) None Seen /LPF KAILYN 06/15/2024 2:35 PM ELECTRICIAN CONSTRUCTOR SUPERVISOR [facility] Urine URINE SPECIMEN OBTAINED BY CLEAN CATCH PROCEDURE / Unknown Non-blood Collection / Unknown 06/15/2024 2:15 PM ELECTRICIAN CONSTRUCTOR SUPERVISOR 06/15/2024 2:15 PM ELECTRICIAN CONSTRUCTOR SUPERVISOR us Esteban Gant MD LAB - URINE ORDERABLES Final Res ult LABORATORY [facility] [address] [facility] Lab (no room number, 1st floor of [facility] [place]) [place] [address], [facility] * (ABNORMAL) UA Macroscopic with reflex to Microscopic and Culture - Clinic Collect (06/15/2024 2:15 PM ELECTRICIAN CONSTRUCTOR SUPERVISOR) Color Urine Yellow Colorless, Straw, Light Yellow, Yellow 06/15/2024 2:28 PM ELECTRICIAN CONSTRUCTOR SUPERVISOR LABORATORY Appearance Urine Clear Clear 06/15/20 2:28 PM ELECTRICIAN CONSTRUCTOR SUPERVISOR LABORATORY Glucose Urine Negative Negative mg/dL 06/15/2024 2:28 PM ELECTRICIAN CONSTRUCTOR SUPERVISOR LABORATORY Bilirubin Urine Small(A) Negative 2:28 PM ELECTRICIAN CONSTRUCTOR SUPERVISOR LABORATORY Ketones Urine 15(A) Negative mg/dL 06/15/2024 2:28 PM ELECTRICIAN CONSTRUCTOR SUPERVISOR LABORATORY Specific Tollhouse Urine >=1.030 1.003 - 1.035 06/15/2024 2:28 PM ELECTRICIAN CONSTRUCTOR SUPERVISOR LABORATORY Blood Urine Trace(A) Negative 06/15/2024 2:28 PM ELECTRICIAN CONSTRUCTOR SUPERVISOR LABORATORY pH Urine 5.5 5.0 - 7.0 06/15/2024 2:28 PM ELECTRICIAN CONSTRUCTOR SUPERVISOR LABORATORY Protein Albumin Urine 100(A) Negative mg/dL 06/15/2024 2:28 PM ELECTRICIAN CONSTRUCTOR SUPERVISOR LABORATORY Urobilinogen Urine 0.2 0.2, 1.0 E.U./dL 06/15/2024 2:28 PM ELECTRICIAN CONSTRUCTOR SUPERVISOR LABORATORY Nitrite Urine Negative Negative 06/15/2024 2:28 PM ELECTRICIAN CONSTRUCTOR SUPERVISOR LABORATORY Leukocyte Esterase Urine Moderate(A) Negative 06/15/2024 2:28 PM ELECTRICIAN CONSTRUCTOR SUPERVISOR LABORATORY Urine URINE SPECIMEN OBTAINED BY CLEAN CATCH PROCEDURE / Unknown Non-blood Collection / Unknown 06/15/2024 2:15 PM ELECTRICIAN CONSTRUCTOR SUPERVISOR 06/15/2024 2:15 PM ELECTRICIAN CONSTRUCTOR SUPERVISOR us Esteban Gant MD LAB - URINE ORDERABLES Final Res ult LABORATORY [facility] [address] [facility] Lab (no room number, 1st floor of clinic) [place] [address], [facility] documented in this encounter Visit Diagnoses Diagnosis [...] for clinic use $Given 06/15/2024 5:59 PM ELECTRICIAN CONSTRUCTOR SUPERVISOR 1 g Right Gluteus Ethan documented in this encounter Additional Health Concerns Assessment Noted Time PHQ-9 Depression Total Score: 5 03/09/20 23 10:57 AM CDT documented as of this encounter Care Teams Electric Meter Tester Shop Relationship Specialty Start Date End Date Alfreda Ray PA-C [address] [place] [address] PCP - General Family Medicine 12/30/21 Alfreda Ray PA-C [address] [place] [address] Referring Physician Family Medicine 12/31/21 Katrin Orellana PA-C [address] [place] [address] [address] [place], [place] 7[address] Physician Link Wire Fabric Machine Tender Dermatology 12/31/21 Shanna Vang PA-C [address] [place], [place] [address] Assigned Cancer Care Provider 01/10/22 Fransisco Eddy MD [address] [address] Assigned Rheumatology Provider 05/09/22 Cristina Hsieh [facility] [address] [facility] [place] [address] Pharmacist Pharmacist 09/07/22 Alfreda Ray PA-C [address] [place] [address] [id number] Assigned PCP 08/29/22 Cristina Hsieh [facility] [address] [address] Assigned MTM Pharmacist 09/26/22 Dakota Tatum MD [address] [place] [address] Cardiovascular Disease 03/25/23 Dakota Tatum MD 516 [place] [address] Assigned Heart and Vascular Provider 05/01/23 [place] [address] [address] [address] [place] [address] Assigned Musculoskeletal Provider 04/12/24 documented as of this encounter
--- OUTSIDE RECORDS SUMMARY | 2024-06-23 00:18 | XMS_ITS | Encounter Summary ---
Author Organization [facility] Address [address] [place] [address] Care Team Providers Care Splicing Supervisor Name Role Phone Alfreda Ray PA-C Primary Care Provider + Alfreda Ray PA-C Unavailable [phone] Katrin Orellana PA-C Unavailable [phone] Shanna Vang PA-C Unavailable [phone] Fransisco Eddy MD Unavailable [phone] Katrin Orellana PA-C Unavailable [phone] Cristina Hsieh [facility] Unavailable [phone] Alfreda Ray PA-C Unavailable [phone] Cristina Hsieh [facility] Unavailable [phone] Dakota Tatum MD Unavailable [phone] Dakota Tatum MD Unavailable [phone] Srinivas Marie DO Unavailable [phone] Encounter Details Date Type Department Care Team (Late st Contact Info) Description 11/09/[address] [facility] [address] [address] Cristina Hsieh, [facility] [address] [address] Social History Tobacco Use Types [...] in an overnight custodial, or couch-surfing.) Yes 05/18/2023 Are you worried [...] Sex Assigned at Female 08/17/2018 7:56 AM CLERK SECRETARY Legal Sex Female 4:24 AM CLERK SECRETARY Gender Identity Female 08/17/2018 7:56 AM CLERK SECRETARY Sexual Orientation Straight 08/17/2018 7: 56 AM CLERK SECRETARY documented as of this encounter Plan of Treatment Upcoming Encounters Date Type Department Care Team (Late st Contact Info) Description 09/07/2024 10:00 AM CDT Office Visit [facility] [address] [place] [address] Fransisco Eddy MD [address] [place] [address] 03/29/2025 3:40 PM CDT Office Visit [address] [phone] Alfreda Ray PA-C [address] [place] [address] [phone] documented as of this encounter Visit Diagnoses Not on filedocumented in this encounter Additional Health Concerns Assessment Noted Time PHQ-9 Depression Total Score: 5 03/09/20 23 10:57 AM CDT documented as of this encounter Care Teams Splicing Supervisor Relationship Specialty Start Date End Date Alfreda Ray PA-C [address] [place] [address] PCP - General Family Medicine 12/30/21 Alfreda Ray PA-C [address] [place] [address] Referring Physician Family Medicine 12/31/21 Katrin Orellana PA-C [address] [place] [address] Physician Accounting Recruiter Dermatology 12/31/21 Shanna Vang PA-C [address] [place] [address] Assigned Cancer Care Provider 01/10/22 Fransisco Eddy MD 515 [facility] 88 [place] [address] Assigned Rheumatology Provider 05/09/22 Katrin Orellana PA-C [address] [facility] 98 [place] [address] Assigned Surgical Provider 08/15/22 02/10/24 Cristina Hsieh [facility] [address] [facility] [place] [address] Pharmacist Pharmacist 09/07/22 Alfreda Ray PA-C [address] [place] [address] 711302 Assigned PCP 08/29/22 Cristina Hsieh [facility] [address] [place] [address] Assigned MTM Pharmacist 09/26/22 Dakota Tatum MD [address] [place] [address] Cardiovascular Disease 03/25/23 Dakota Tatum MD [address] [place] [address] Assigned Heart and Vascular Provider 05/01/23 [place] [address] [place] [address] [address] Assigned Musculoskeletal Provider 04/12/24 documented as of this encounter
--- OUTSIDE RECORDS SUMMARY | 2024-06-23 00:18 | XMS_ITS | Encounter Summary ---
Author Organization [facility] Address [address] [place] [address] Care Team Providers Care Machine Carton Marker Name Role Phone Alfreda Ray PA-C Primary Care Provider + Alfreda Ray PA-C Unavailable [phone] Katrin Orellana PA-C Unavailable [phone] Shanna Vang PA-C Unavailable [phone] Fransisco Eddy MD Unavailable Katrin Orellana PA-C Unavailable [phone] Cristina Hsieh [facility] Unavailable [phone] Alfreda Ray PA-C Unavailable [phone] Cristina Hsieh [facility] Unavailable [phone] Dakota Tatum MD Unavailable [phone] Dakota Tatum MD Unavailable [phone] Srinivas Marie DO Unavailable [phone] Encounter Details Date Type Department Care Team (Late st Contact Info) Description 10/21/2023 MyC Medical Advice [facility] [address] [address] Gia Weller Social History Tobacco [...] in an overnight fpc, or couch-surfing.) Yes 05/18/2023 Are you worried [...] Sex Assigned at Female 08/17/2018 7:56 AM SUPPORT STAFF Legal Sex Female 4:24 AM SUPPORT STAFF Gender Identity Female 08/17/2018 7:56 AM SUPPORT STAFF Sexual Orientation Straight 08/17/2018 7: 56 AM SUPPORT STAFF documented as of this encounter Plan of Treatment Upcoming Encounters Date Type Department Care Team (Azul Contact Info) Description 09/07/2024 10:00 AM CDT Office Visit [facility] [address] [place] [phone] Fransisco Eddy MD 515 [facility] 88 [place] [address] 03/29/2025 3:40 PM CDT Office Visit [address] [address] Alfreda Ray PA-C [address] [place] [address] [phone] documented as of this encounter Visit Diagnoses Not on filedocumented in this encounter Additional Health Concerns Assessment Noted Time PHQ-9 Depression Total Score: 5 03/09/20 10:57 AM CDT documented as of this encounter Care Teams Machine Carton Marker Relationship Specialty Start Date End Date Alfreda Ray PA-C [address] [place] [address] [id number] PCP - General Family Medicine 12/30/21 Alfreda Ray PA-C [address] [place] [address] Referring Physician Family Medicine 12/31/21 Katrin Orellana PA-C [address] [place] [address] 98 [place] [address] Physician Core Shaper Dermatology 12/31/21 Shanna Vang PA-C [address] [place] [address] 056324 Assigned Cancer Care Provider 01/10/22 Fransisco Eddy MD 515 [facility] 88 [place] [address] Assigned Rheumatology Provider 05/09/22 Katrin Orellana PA-C 420 [facility] 98 [place] [address] Assigned Surgical Provider 08/15/22 02/10/24 Cristina Hsieh [facility] [address] [facility] [address] Pharmacist Pharmacist 09/07/22 Alfreda Ray PA-C [address] [place] [address] [id number] Assigned PCP 08/29/22 Cristina Hsieh [facility] [address] [address] Assigned MTM Pharmacist 09/26/22 Dakota Tatum MD 6 [place] [address] Cardiovascular Disease 03/25/23 Dakota Tatum MD 516 [place] [address] Assigned Heart and Vascular Provider 05/01/23 [place] [address] [place] , [facility] 300 [place] [address] Assigned Musculoskeletal Provider 04/12/24 documented as of this encounter
--- OUTSIDE RECORDS SUMMARY | 2024-06-23 00:18 | XMS_ITS | Encounter Summary ---
Author Organization [place] Address [address] [place] [address] Care Team Providers Care Meal Attendant Name Role Phone Alfreda Ray PA-C Primary Care Provider + Alfreda Ray PA-C Unavailable [phone] Katrin Orellana PA-C Unavailable Shanna Vang-C Unavailable +[phone] Fransisco Eddy MD Unavailable +[phone] Cristina Hsieh [facility] Unavailable Alfreda Ray PA-C Unavailable +[phone] Cristina Hsieh [facility] Unavailable +[phone] Dakota Tatum MD Unavailable + [phone] Dakota Tatum MD Unavailable [phone] Srinivas Marie DO Unavailable [phone] Encounter Details Date Type Department Care [...] re latives? Once a week 03/15/2024 Attends Mosque Services Not on file 03/15 Active Member of Clubs or Organizations Not on f ile 03/15/2024 Attends Club or Organization Meetings Not on anu e 03/15/2024 Marital Status Not on file 03/15/2024 PHQ-2 Answer Date Recorded PHQ-2 Score 0 03/16/2024 [facility] - [...] an overnight group home, or couch-surfing.) Yes 03/15/2024 Are you [...] Sex Assigned at Female 08/17/2018 7:56 AM WELDING MACHINE OPERATOR THERMIT Legal Sex Female 4:24 AM WELDING MACHINE OPERATOR THERMIT Gender Identity Female 08/17/2018 7:56 AM WELDING MACHINE OPERATOR THERMIT Sexual Orientation Straight 08/17/2018 7: 56 AM WELDING MACHINE OPERATOR THERMIT documented as of this encounter Plan of Treatment Upcoming Encounters Date Type Department Care Team (Late st Contact Info) Description 09/07/2024 10:00 AM CDT Office Visit [address] [phone] Fransisco Eddy MD [address] [place] [address] 67686 03/29/2025 3:40 PM CDT Office Visit [address] [phone] Alfreda Ray PA-C [address] [place] [address] 756752 documented as of this encounter Visit Diagnoses Not on filedocumented in this encounter Additional Health Concerns Assessment Noted Time PHQ-9 Depression Total Score: 5 03/09/20 23 10:57 AM CDT documented as of this encounter Care Teams Meal Attendant Relationship Specialty Start Date End Date Alfreda Ray PA-C [address] [place] [address] 707282 PCP - General Family Medicine 12/30/21 Alfreda Ray PA-C [address] [place] [address]885 Referring Physician Family Medicine 12/31/21 Katrin Orellana PA-C [address] [facility] 98 [place] [address] Physician Vertica Architect Dermatology 12/31/21 Shanna Vang PA-C [address] [place] [address] [phone] Assigned Cancer Care Provider 01/10/22 Fransisco Eddy MD [address] [place] [address] 072745 Assigned Rheumatology Provider 05/09/22 Cristina Hsieh [facility] [address] [place] [address] [place] [address] Pharmacist Pharmacist 09/07/22 Alfreda Ray PA-C [address] [place] [address] 62860 Assigned PCP 08/29/22 Cristina Hsieh [facility] [address] [place] [address] 91794 Assigned MTM Pharmacist 09/26/22 Dakota Tatum MD [address] [place] [address] 52750 Cardiovascular Disease 03/25/23 Dakota Tatum MD [address] [place] [address] 11993 Assigned Heart and Vascular Provider 05/01/23 [place] [address] [address], [address] [address] Assigned Musculoskeletal Provider 04/12/24 documented as of this encounter
--- OUTSIDE RECORDS SUMMARY | 2024-06-23 00:19 | XMS_ITS | Encounter Summary ---
Author Organization [place] Address [address] [place] [place] [address] Care Team Providers Care Touch Up Carver Name Role Phone Alfreda Ray PA-C Primary Care Provider + Alfreda Ray PA-C Unavailable [phone] Katrin Orellana PA-C Unavailable [phone] Shanna Vang PA-C Unavailable +[phone] Fransisco Eddy MD Unavailable +[phone] Katrin Orellana PA-C Unavailable [phone] Cristina Hsieh [facility] Unavailable +[phone] Alfreda Ray PA-C Unavailable +[phone] Cristina Hsieh [facility] Unavailable +[phone] Dakota Tatum MD Unavailable [phone] Dakota Tatum MD Unavailable [phone] Srinivas Marie DO Unavailable [phone] Reason for Visit * Reason Comments Medication Refill Encounter Details Date Type Department Care Team (Late st Contact Info) Description 10/08/2023 Refill [facility] [place] [address] [facility] 3rd [place] [address] Alfreda Ray PA-C 0093 [place] [address] Medication Refill Social History Tobacco Use Types [...] Sex Assigned at Female 08/17/2018 7:56 AM WHEEL AND CASTER REPAIRER Legal Sex Female 4:24 AM WHEEL AND CASTER REPAIRER Gender Identity Female 08/17/2018 7:56 AM WHEEL AND CASTER REPAIRER Sexual Orientation Straight 08/17/2018 7: 56 AM WHEEL AND CASTER REPAIRER documented as of this encounter Miscellaneous Notes * Telephone Encounter - Natalia Klein CMA - 10/12/2023 4:19 PM CDT Called patient scheduled for BP check in [place] on 10/14/2023. Natalia Klein CMA * Telephone Encounter - Alfreda Ray PA-C - 10/11/2023 12:07 PM CDT Refilled x 90 days. Please advise patient last blood pressure was above goal. Please encourage her to schedule a nurse only blood pressure visit at the [facility] near her home or a [facility]. Not due for annual visit until February 2024. If she would like to schedule thisplease assist her in doing so. documented in this encounter Plan of Treatment Upcoming Encounters Date Type Department Care Team (Late st Contact Info) Description 09/07/2024 10:00 AM CDT Office Visit [address] [phone] Fransisco Eddy MD [address] [place] [address] 660845 03/29/2025 3:40 PM CDT Office Visit [address] [phone] Alfreda Ray PA-C [address] [place] [address] 161492 documented as of this encounter Visit Diagnoses Diagnosis Primary osteoarthritis involving multiple joints documented in this encounter Additional Health Concerns Assessment Noted Time PHQ-9 Depression Total Score: 5 03/09/20 23 10:57 AM CDT documented as of this encounter Care Teams Touch Up Carver Relationship Specialty Start Date End Date Alfreda Ray PA-C [address] [place] [address] 19537 PCP - General Family Medicine 12/30/21 Alfreda Ray PA-C [address] [place] [address] 55382 Referring Physician Family Medicine 12/31/21 Katrin Orellana PA-C [address] [place] [address] 242545 Physician Senior Technical Editor Dermatology 12/31/21 Shanna Vang PA-C [address] [place] [address] 514694 Assigned Cancer Care Provider 01/10/22 Fransisco Eddy MD [address] [place] [address] 611165 Assigned Rheumatology Provider 05/09/22 Katrin Orellana PA-C [address] [place] [address] 590055 Assigned Surgical Provider 08/15/22 02/10/24 Cristina Hsieh [facility] [address] [place] [address] [place] [address] Pharmacist Pharmacist 09/07/22 Alfreda Ray PA-C [address] [place] [address] 83843 Assigned PCP 08/29/22 Cristina Hsieh, [facility] [address] [address] Assigned MTM Pharmacist 09/26/22 Dakota Tatum MD [address] [place] [address] 76881 Cardiovascular Disease 03/25/23 Dakota Tatum MD [address] [place] [address] 23087 Assigned Heart and Vascular Provider 05/01/23 [place] [address] [address], [facility] [address] [place] [address] Assigned Musculoskeletal Provider 04/12/24 documented as of this encounter
--- OUTSIDE RECORDS SUMMARY | 2024-06-23 00:19 | XMS_ITS | Encounter Summary ---
Author Organization [place] Address [address] [place] [address] Care Team Providers Care Client Relations Representative Name Role Phone Alfreda Ray PA-C Primary Care Provider + Alfreda Ray PA-C Unavailable [phone] Katrin Orellana PA-C Unavailable [phone] Shanna Vang PA-C Unavailable +[phone] Fransisco Eddy MD Unavailable [phone] Katrin Orellana PA-C Unavailable [phone] Cristina Hsieh [facility] Unavailable [phone] Alfreda Ray PA-C Unavailable + [phone] Alfreda Ray PA-C Unavailable + [phone] Cristina Hsieh [facility] Unavailable [phone] Dakota Tatum MD Unavailable + [phone] Dakota Tatum MD Unavailable + [phone] Srinivas Marie DO Unavailable Encounter Details Date Type Department Care Team (Late st Contact Info) Description 09/09/2023 [facility] [address] [place] [address] Shanna Vang PA-C [address] [place] [address] Social History Tobacco Use Types Packs/Day Years [...] in an abandoned building, in an overnight retirement, or couch-surfing.) Yes 05/18/2023 Are you worried [...] Sex Assigned at Female 08/17/2018 7:56 AM BLOCK ENGRAVER Legal Sex Female 4:24 AM BLOCK ENGRAVER Gender Identity Female 08/17/2018 7:56 AM BLOCK ENGRAVER Sexual Orientation Straight 08/17/2018 7: 56 AM BLOCK ENGRAVER documented as of this encounter Plan of Treatment Upcoming Encounters Date Type Department Care Team (Late st Contact Info) Description 09/07/2024 10:00 AM CDT Office Visit [facility] [address] [place] [phone] Fransisco Eddy MD [address] [facility] 88 [place] [address] 03/29/2025 3:40 PM CDT Office Visit [address] [phone] Alfreda Ray PA-C [address] [place] [address] documented as of this encounter Visit Diagnoses Not on filedocumented in this encounter Additional Health Concerns Assessment Noted Time PHQ-9 Depression Total Score: 5 03/09/20 23 10:57 AM CDT documented as of this encounter Care Teams Client Relations Representative Relationship Specialty Start Date End Date Alfreda Ray PA-C [address] [place] [address] 26670 PCP - General Family Medicine 12/30/21 Alfreda Ray PA-C [address] [place] [address] 73134 Referring Physician Family Medicine 12/31/21 Katrin Orellana PA-C [address] [place] [address] 98 [place] [address] Physician Drawer In Dobby Loom Dermatology 12/31/21 Shanna Vang PA-C [address] [place] [address] Assigned Cancer Care Provider 01/10/22 Fransisco Eddy MD [address] [place] [address] 88 [place] [address] Assigned Rheumatology Provider 05/09/22 Katrin Orellana PA-C [address] [place] [address] 98 [place], [place] 652375 Assigned Surgical Provider 08/15/22 02/10/24 Cristina Hsieh [facility] [address] [place] [address] Pharmacist Pharmacist 09/07/22 Alfreda Ray PA-C [address] [place] [address] 253362 Assigned Pain Medication Provider 09/05/22 09/10/23 Alfreda Ray PA-C [address] [place] [address] 51788 Assigned PCP 08/29/22 Cristina Hsieh [facility] [address] [phone] Assigned MTM Pharmacist 09/26/22 Dakota Tatum MD [address] [place] [address] Cardiovascular Disease 03/25/23 Dakota Tatum MD [address] [place] [address]462 Assigned Heart and Vascular Provider 05/01/23 [place] [address] [address], [address] [address] Assigned Musculoskeletal Provider 04/12/24 documented as of this encounter
--- OUTSIDE RECORDS SUMMARY | 2024-06-23 00:19 | XMS_ITS | Encounter Summary ---
Author Organization [place] Address [address] [place] [address] Care Team Providers Care Research Environmental Scientist Name Role Phone Alfreda Ray PA-C Primary Care Provider + Alfreda Ray PA-C Unavailable +[phone] Katrin Orellana PA-C Unavailable [phone] Shanna Vang PA-C Unavailable +[phone] Fransisco Eddy MD Unavailable +[phone] Katrin Orellana PA-C Unavailable [phone] Cristina Hsieh [facility] Unavailable [phone] Alfreda Ray PA-C Unavailable + [phone] Alfreda Ray PA-C Unavailable [phone] Cristina Hsieh [facility] Unavailable [phone] Dakota Tatum MD Unavailable + [phone] Dakota Tatum MD Unavailable + [phone] Srinivas Marie DO Unavailable [phone] Reason for Visit * Reason Onset Date Comments [facility] 07/24/2023 Encounter Details Date Type Department Care Team (Late st Contact Info) Description 07/24/2023 [facility] [address] [phone] Alfreda Ray PA-C [address] [place], [place] 586342 [facility] Social History Tobacco Use Types [...] [facility], or couch-surfing.) Yes 05/18/2023 Are you worried [...] Sex Assigned at Female 08/17/2018 7:56 AM ROOFING SUPERINTENDENT Legal Sex Female 4:24 AM ROOFING SUPERINTENDENT Gender Identity Female 08/17/2018 7:56 AM ROOFING SUPERINTENDENT Sexual Orientation Straight 08/17/2018 7: 56 AM ROOFING SUPERINTENDENT documented as of this encounter Miscellaneous Notes * Telephone Encounter - Idania Stokes - 07/29/2023 11:40 AM CST Talked to patient who set up a virtual to do form with provider. VV was set up 08/19/23 Idania Mcmahon ING SUPERINTENDENT * Telephone Encounter - Sarina Stevens - 07/29/2023 11:05 AM CST InfoAssure message sent to patient advising of Alfreda Ray's message below. ING SUPERINTENDENT * Telephone Encounter - Alfreda Ray PA-C - 07/28/2023 4:46 PM ROOFING SUPERINTENDENT Images from the original note were not included. Video or in person visit to document & complete paperwork. Please assist with scheduling. Can mail to her to take to DMV or mail in. Alfreda Ray MBA, MS, [facility] ING SUPERINTENDENT * Telephone Encounter - Fadumo Storey RN - 07/27/2023 12:58 PM CST Please see my chart message and advise. Thanks Does patient need appointment? In person or virtual? Last office visit was 05/25/23 ING SUPERINTENDENT documented in this encounter Plan of Treatment Upcoming Encounters Date Type Department Care Team (Late st Contact Info) Description 09/07/2024 10:00 AM CDT Office Visit [facility] [address] [place] [phone] Fransisco Eddy MD [address] [place] [address] 03/29/2025 3:40 PM CDT Office Visit [address] [phone] Alfreda Ray PA-C [address] [place] [address] 240792 documented as of this encounter Visit Diagnoses Not on filedocumented in this encounter Additional Health Concerns Assessment Noted Time PHQ-9 Depression Total Score: 5 03/09/20 23 10:57 AM CDT documented as of this encounter Care Teams Research Environmental Scientist Relationship Specialty Start Date End Date Alfreda Ray PA-C [address] [place] [address] PCP - General Family Medicine 12/30/21 Alfreda Ray PA-C [address] [place] [address]001 Referring Physician Family Medicine 12/31/21 Katrin Orellana PA-C [address] [place] [address]9953 Physician Operations Plant Attendant Dermatology 12/31/21 Shanna Vang PA-C [address] [place] [address] 92877 Assigned Cancer Care Provider 01/10/22 Fransisco Eddy MD [address] [place] [address] 717485 Assigned Rheumatology Provider 05/09/22 Katrin Orellana PA-C [address] [place] [address] 62748 Assigned Surgical Provider 08/15/22 02/10/24 Cristina Hsieh [facility] [address] [facility] [place] [address] Pharmacist Pharmacist 09/07/22 Alfreda Ray PA-C [address] [place] [address] 028982 Assigned Pain Medication Provider 09/05/22 09/10/23 Alfreda Ray PA-C [address] [place] [address] 424782 Assigned PCP 08/29/22 Cristina Hsieh [facility] [address] [place] [address] Assigned MTM Pharmacist 09/26/22 Dakota Tatum MD [address] [place] [address]50 Cardiovascular Disease 03/25/23 Dakota Tatum MD [address] [place] [address] 30775 Assigned Heart and Vascular Provider 05/01/23 [place] [address] [place] [address] [address] Assigned Musculoskeletal Provider 04/12/24 documented as of this encounter
--- OUTSIDE RECORDS SUMMARY | 2024-06-23 00:19 | XMS_ITS | Encounter Summary ---
Author Organization [place] Address [address] [place] [address]. [place] [address] Care Team Providers Care Business Unit Manager Name Role Phone Alfreda Ray PA-C Primary Care Provider + Alfreda Ray PA-C Unavailable [phone] Katrin Orellana PA-C Unavailable [phone] Shanna Vang PA-C Unavailable +[phone] Fransisco Eddy MD Unavailable [phone] Katrin Orellana PA-C Unavailable [phone] Cristina Hsieh [facility] Unavailable [phone] Alfreda Ray PA-C Unavailable + [phone] Alfreda Ray PA-C Unavailable + [phone] Cristina Hsieh [facility] Unavailable [phone] Dakota Tatum MD Unavailable + [phone] Dakota Tatum MD Unavailable + [phone] Srinivas Marie DO Unavailable [phone] Encounter Details Date Type Department Care Team (Late st Contact Info) Description 12/28/2022 [facility] [address] [place] [address] Gia Weller Social History Tobacco [...] Sex Assigned at Female 08/17/2018 7:56 AM BALANCE ENGINEER Legal Sex Female 4:24 AM BALANCE ENGINEER Gender Identity Female 08/17/2018 7:56 AM BALANCE ENGINEER Sexual Orientation Straight 08/17/2018 7: 56 AM BALANCE ENGINEER COVID-19 Exposure Response Date Recorded In the [...] Office Visit [facility] [address] [phone] Fransisco Eddy MD [address] [place] [address] 874275 03/29/2025 3:40 PM CDT Office Visit [address] [phone] Alfreda Ray PA-C [address] [place] [address] 585752 documented as of this encounter Visit Diagnoses Not on filedocumented in this encounter Additional Health Concerns Assessment Noted Time PHQ-9 Depression Total Score: 4 09/05/19 22 10:39 AM CDT documented as of this encounter Care Teams Business Unit Manager Relationship Specialty Start Date End Date Alfreda Ray PA-C [address] [place] [address] [phone] PCP - General Family Medicine 12/30/21 Alfreda Ray PA-C [address] [place] [address] 59914 Referring Physician Family Medicine 12/31/21 Katrin Orellana PA-C [address] [place] [address] 90291 Physician Rig Site Engineer Dermatology 12/31/21 Shanna Vang PA-C [address] [place] [address] Assigned Cancer Care Provider 01/10/22 Fransisco Eddy MD [address] [place] [address] 849015 Assigned Rheumatology Provider 05/09/22 Katrin Orellana PA-C [address] [place] [address] 845905 Assigned Surgical Provider 08/15/22 02/10/24 Cristina Hsieh, [facility] [address] [place] [address] LISBETH HERNANDEZ [phone] Pharmacist Pharmacist 09/07/22 Alfreda Ray PA-C [address] [place] [address] 213372 Assigned Pain Medication Provider 09/05/22 09/10/23 Alfreda Ray PA-C [address] [place] [address] 33408 Assigned PCP 08/29/22 Cristina Hsieh, [facility] [address] [facility] [address] [place] [address] Assigned MTM Pharmacist 09/26/22 Dakota Tatum MD [address] [place] [address] [phone] Cardiovascular Disease 03/25/23 Dakota Tatum MD [address] [place] [address] Assigned Heart and Vascular Provider 05/01/23 [place] [address] [address], [facility] [address] [place] [address] Assigned Musculoskeletal Provider 04/12/24 documented as of this encounter
--- OUTSIDE RECORDS SUMMARY | 2024-06-23 00:19 | XMS_ITS | Encounter Summary ---
Author Organization [place] Address [address] [place] [address] Care Team Providers Care Surfboard Designer Name Role Phone Alfreda Ray PA-C Primary Care Provider + Alfreda Ray PA-C Unavailable [phone] Katrin Orellana PA-C Unavailable [phone] Shanna Vang PA-C Unavailable +[phone] Fransisco Eddy MD Unavailable [phone] Katrin Orellana PA-C Unavailable +[phone] Cristina Hsieh [facility] Unavailable [phone] Alfreda Ray PA-C Unavailable + [phone] Alfreda Ray PA-C Unavailable + [phone] Cristina Hsieh [facility] Unavailable [phone] Dakota Tatum MD Unavailable + [phone] Dakota Tatum MD Unavailable + [phone] Srinivas Marie DO Unavailable [phone] Encounter Details Date Type Department Care Team (Late st Contact Info) Description 06/11/2023 [facility] [address] [phone] Gloria Harper, RN Social History [...] an overnight senior care, or couch-surfing.) Yes 05/18/2023 Are you worried [...] Sex Assigned at Female 08/17/2018 7:56 AM BUSINESS CONSULT Legal Sex Female 4:24 AM BUSINESS CONSULT Gender Identity Female 08/17/2018 7:56 AM BUSINESS CONSULT Sexual Orientation Straight 08/17/2018 7: 56 AM BUSINESS CONSULT documented as of this encounter Plan of Treatment Upcoming Encounters Date Type Department Care Team (Late st Contact Info) Description 09/07/2024 10:00 AM CDT Office Visit [facility] [address] [place] [phone] Fransisco Eddy MD [address] [place] [address] 88 [place] [address] 03/29/2025 3:40 PM CDT Office Visit [address] [phone] Alfreda Ray PA-C [address] [place] [address] 718422 documented as of this encounter Visit Diagnoses Not on filedocumented in this encounter Additional Health Concerns Assessment Noted Time PHQ-9 Depression Total Score: 5 03/09/20 23 10:57 AM CDT documented as of this encounter Care Teams Surfboard Designer Relationship Specialty Start Date End Date Alfreda Ray PA-C [address] [place] [address] 87278 PCP - General Family Medicine 12/30/21 Alfreda Ray PA-C [address] [place] [address] 27496 Referring Physician Family Medicine 12/31/21 Katrin Orellana PA-C [address] [place] [address] 98 [place] [address] Physician Oncology Registrar Dermatology 12/31/21 Shanna Vang PA-C [address] [place] [address] 13423 Assigned Cancer Care Provider 01/10/22 Fransisco Eddy MD [address] [place] [address] 88 [place] [address] Assigned Rheumatology Provider 05/09/22 Katrin Orellana PA-C [address] [place] [address] 98 [place] [address] Assigned Surgical Provider 08/15/22 02/10/24 Cristina Hsieh [facility] [address] [place] [address] [place] [address] Pharmacist Pharmacist 09/07/22 Alfreda Ray PA-C [address] [place] [address] 28311 Assigned Pain Medication Provider 09/05/22 09/10/23 Alfreda Ray PA-C [address] [place] [address] 13724 Assigned PCP 08/29/22 Cristina Hsieh [facility] [address] [place] [address] 88716 Assigned MTM Pharmacist 09/26/22 Dakota Tatum MD [address] [place] [address] [phone] Cardiovascular Disease 03/25/23 Dakota Tatum MD [address] [place] [address] 480345 Assigned Heart and Vascular Provider 05/01/23 [place] [address] [address], [address] [phone] Assigned Musculoskeletal Provider 04/12/24 documented as of this encounter
--- OUTSIDE RECORDS SUMMARY | 2024-06-23 00:19 | XMS_ITS | Encounter Summary ---
Author Organization [place] Address [address] [place] [address] 85645 Care Team Providers Care Property Clerk Name Role Phone Alfreda Ray PA-C Primary Care Provider + Alfreda Ray PA-C Unavailable +[phone] Katrin Orellana PA-C Unavailable +[phone] Shanna Vang PA-C Unavailable +[phone] Fransisco Eddy MD Unavailable +[phone] Katrin Orellana PA-C Unavailable +[phone] Cristina Hsieh [facility] Unavailable +[phone] Alfreda Ray PA-C Unavailable + [phone] Alfreda Ray PA-C Unavailable +[phone] Cristina Hseih [facility] Unavailable +[phone] Dakota Tatum MD Unavailable + [phone] Dakota Tatum MD Unavailable + [phone] Srinivas Marie DO Unavailable [phone] Reason for Visit * Reason Onset Date Comments Refill Request 04/06/2023 predniSONE (DELT ASONE) 5 MG tablet Encounter Details Date Type Department Care Team (Late st Contact Info) Description 04/06/2023 [facility] [address] [address] Fransisco Eddy MD [address] [place] [address] [phone] Refill Request (predniSONE (DELTASONE) 5 MG tablet) [...] Sex Assigned at Female 08/17/2018 7:56 AM SUSTAINABILITY COACH Legal Sex Female 4:24 AM SUSTAINABILITY COACH Gender Identity Female 08/17/2018 7:56 AM SUSTAINABILITY COACH Sexual Orientation Straight 08/17/2018 7: 56 AM SUSTAINABILITY COACH COVID-19 Exposure Response Date Recorded In the [...] Dr Eddy and 03/04/23 with Cristina Hsieh [facility] Pending appointment: Apr 15, 2023 11:30 AM Pharmacist Visit with Cristina Hsieh RPH [facility] [place] ([facility] ) [address] [facility] [phone] Jun 17, 2023 1:30 PM (Arrive by 1:15 PM) Return Visit with Fransisco Eddy MD [facility] ([facility] ) [address] [place] [phone] Per YUSRA Evans's last note, pt is to be taking 5 mg daily until seen by her, Prescription not on Protocol, and routed to provider to review different dosing. 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) documented in this encounter Additional Health Concerns Assessment Noted Time PHQ-9 Depression Total Score: 5 03/09/20 23 10:57 AM CDT documented as of this encounter Care Teams Property Clerk Relationship Specialty Start Date End Date Alfreda Ray PA-C [address] [place] [address]85 PCP - General Family Medicine 12/30/21 Alfreda Ray PA-C [address] [place] [address] 81271 Referring Physician Family Medicine 12/31/21 Katrin Orellana PA-C [address] [place] [address] 85362 Physician Data Report Analyst Dermatology 12/31/21 Shanna Vang PA-C [address] [place] [address]250 Assigned Cancer Care Provider 01/10/22 Fransisco Eddy MD [address] [place] [address] 03713 Assigned Rheumatology Provider 05/09/22 Katrin Orellana PA-C [address] [place] [address] 820175 Assigned Surgical Provider 08/15/22 02/10/24 Cristina Hsieh [facility] [address] [place] [address] LISBETH HERNANDEZ 267[address] Pharmacist Pharmacist 09/07/22 Alfreda Ray PA-C [address] [place] [address] 93083 Assigned Pain Medication Provider 09/05/22 09/10/23 Alfreda Ray PA-C [address] [place] [address] Assigned PCP 08/29/22 Cristina Hsieh, [facility] [address] [address] Assigned MTM Pharmacist 09/26/22 Dakota Tatum MD [address] [place] [address] 29852 Cardiovascular Disease 03/25/23 Dakota Tatum MD [address] [place] [address] 90222 Assigned Heart and Vascular Provider 05/01/23 [place] [address] [facility], [facility] [address] [place] [address] Assigned Musculoskeletal Provider 04/12/24 documented as of this encounter
--- OUTSIDE RECORDS SUMMARY | 2024-06-23 00:19 | XMS_ITS | Encounter Summary ---
Author Organization [place] Address [address] [place] [address] 60053 Care Team Providers Care Final Inspector Name Role Phone Alfreda Ray PA-C Primary Care Provider + Alfreda Ray PA-C Unavailable +[phone] Katrin Orellana PA-C Unavailable [phone] Shanna Vang PA-C Unavailable +[phone] Fransisco Eddy MD Unavailable +[phone] Katrin Orellana PA-C Unavailable +[phone] Cristina Hsieh [facility] Unavailable +[phone] Alfreda Ray PA-C Unavailable + [phone] Alfreda Ray PA-C Unavailable + [phone] Cristina Hsieh [facility] Unavailable +[phone] Dakota Tatum MD Unavailable + [phone] Dakota Tatum MD Unavailable + [phone] Srinivas Marie DO Unavailable [phone] Encounter Details Date Type Department Care Team (Late st Contact Info) Description 07/21/2023 MyC Medical Advice [facility] [address] [place] [address] Gruendemann, Lecora Social History Tobacco Use [...] in an abandoned building, in an overnight correction, or couch-surfing.) Yes 05/18/2023 Are you worried [...] Assigned at Female 08/17/2018 7:56 AM RUBBER STAMP MAKER Legal Sex Female 4:24 AM RUBBER STAMP MAKER Gender Identity Female 08/17/2018 7:56 AM RUBBER STAMP MAKER Sexual Orientation Straight 08/17/2018 7: 56 AM RUBBER STAMP MAKER documented as of this encounter Plan of Treatment Upcoming Encounters Date Type Department Care Team (Late st Contact Info) Description 09/07/2024 10:00 AM CDT Office Visit [facility] [address] [place] [phone] Fransisco Eddy MD 515 [facility] 88 [place], [place] 925975 03/29/2025 3:40 PM CDT Office Visit [address] [phone] Alfreda Ray PA-C [address] [place] [address] 647852 documented as of this encounter Visit Diagnoses Not on filedocumented in this encounter Additional Health Concerns Assessment Noted Time PHQ-9 Depression Total Score: 5 03/09/20 23 10:57 AM CDT documented as of this encounter Care Teams Final Inspector Relationship Specialty Start Date End Date Alfreda Ray PA-C [address] [place] [address] 355752 PCP - General Family Medicine 12/30/21 Alfreda Ray PA-C [address] [place] [address] 9[address] Referring Physician Family Medicine 12/31/21 Katrin Orellana PA-C [address] [place] [address] 98 [place], [place] 559625 Physician Chief Privacy Officer Dermatology 12/31/21 Shanna Vang PA-C [facility] [place] [address] 830624 Assigned Cancer Care Provider 01/10/22 Fransisco Eddy MD [address] [place] [address] 88 [place] [address] Assigned Rheumatology Provider 05/09/22 Katrin Orellana PA-C [address] [place] [address] 146355 Assigned Surgical Provider 08/15/22 02/10/24 Cristina Hsieh [facility] [address] [place] [address] [place] [address] Pharmacist Pharmacist 09/07/22 Alfreda Ray PA-C [address] [place] [address] 78587 Assigned Pain Medication Provider 09/05/22 09/10/23 Alfreda Ray PA-C [address] [place] [address] 867662 Assigned PCP 08/29/22 Cristina Hsieh [facility] [address] [place] [address] 41617 Assigned MTM Pharmacist 09/26/22 Dakota Tatum MD [address] [place] [address] 776015 Cardiovascular Disease 03/25/23 Dakota Tatum MD [address] [place] [address]133 Assigned Heart and Vascular Provider 05/01/23 [place] [address] [facility], [address] [address] Assigned Musculoskeletal Provider 04/12/24 documented as of this encounter
--- OUTSIDE RECORDS SUMMARY | 2024-06-23 00:19 | XMS_ITS | Encounter Summary ---
Author Organization [facility] Address [address] [place] [address] Care Team Providers Care Physician President Name Role Phone Alfreda Ray PA-C Primary Care Provider + Alfreda Ray PA-C Unavailable +[phone] Katrin Orellana PA-C Unavailable [phone] Shanna Vang PA-C Unavailable +[phone] Fransisco Eddy MD Unavailable +[phone] Katrin Orellana PA-C Unavailable [phone] Cristina Hsieh [facility] Unavailable +[phone] Alfreda Ray PA-C Unavailable + [phone] Alfreda Ray PA-C Unavailable + [phone] Cristina Hsieh [facility] Unavailable +[phone] Dakota Tatum MD Unavailable + [phone] Dakota Tatum MD Unavailable + [phone] Srinivas Marie DO Unavailable [phone] Encounter Details Date Type Department Care Team (Late st Contact Info) Description 06/16/2023 [facility] [address] [place] [address] Shanna Vang PA-C [address] [place] [address] Social History Tobacco Use Types Packs/Day Years [...] an overnight care home, or couch-surfing.) Yes 05/18/2023 Are you [...] Sex Assigned at Female 08/17/2018 7:56 AM SUB ARC OPERATOR Legal Sex Female 4:24 AM SUB ARC OPERATOR Gender Identity Female 08/17/2018 7:56 AM SUB ARC OPERATOR Sexual Orientation Straight 08/17/2018 7: 56 AM SUB ARC OPERATOR documented as of this encounter Plan of Treatment Upcoming Encounters Date Type Department Care Team (Late st Contact Info) Description 09/07/2024 10:00 AM CDT Office Visit [facility] [address] 200 [place] [phone] Fransisco Eddy MD 515 [facility] 88 [place] [address] 03/29/2025 3:40 PM CDT Office Visit [address] [phone] Alfreda Ray PA-C [address] [place] [address] documented as of this encounter Visit Diagnoses Not on filedocumented in this encounter Additional Health Concerns Assessment Noted Time PHQ-9 Depression Total Score: 5 03/09/20 23 10:57 AM CDT documented as of this encounter Care Teams Physician President Relationship Specialty Start Date End Date Alfreda Ray PA-C [address] [place] [address] 49[address] PCP - General Family Medicine 12/30/21 Alfreda Ray PA-C [address] [place] [address] 20721 Referring Physician Family Medicine 12/31/21 Katrin Orellana PA-C [address] [place] [address] 98 [place] [address] Physician Garden Machinery Mechanic Dermatology 12/31/21 Shanna Vang PA-C [address] [place] [address] Assigned Cancer Care Provider 01/10/22 Fransisco Eddy MD [address] [place] [address] 88 [place] [address] Assigned Rheumatology Provider 05/09/22 Katrin Orellana PA-C [address] [place] [address] 98 [place], [place] 197875 Assigned Surgical Provider 08/15/22 02/10/24 Cristina Hsieh [facility] [address] [facility] [place] [address] Pharmacist Pharmacist 09/07/22 Alfreda Ray PA-C [address] [place] [address] 050482 Assigned Pain Medication Provider 09/05/22 09/10/23 Alfreda Ray PA-C [address] [place] [address] 94095 Assigned PCP 08/29/22 Cristina Hsieh [facility] [address] [phone] Assigned MTM Pharmacist 09/26/22 Dakota Tatum MD [address] [place] [address] Cardiovascular Disease 03/25/23 Dakota Tatum MD [address] [place] [address] 12539 Assigned Heart and Vascular Provider 05/01/23 [place] [address] [facility], [address] [address] Assigned Musculoskeletal Provider 04/12/24 documented as of this encounter
--- OUTSIDE RECORDS SUMMARY | 2024-06-23 00:19 | XMS_ITS | Encounter Summary ---
Author Organization [place] Address [address] [place] [address] 91834 Care Team Providers Care Call Center Rn Name Role Phone Alfreda Ray PA-C Primary Care Provider + Alfreda Ray PA-C Unavailable +[phone] Katrin Orellana PA-C Unavailable [phone] Shanna Vang PA-C Unavailable +[phone] Fransisco Eddy MD Unavailable +[phone] Katrin Orellana PA-C Unavailable [phone] Cristina Hsieh [facility] Unavailable +[phone] Alfreda Ray PA-C Unavailable + [phone] Alfreda Ray PA-C Unavailable + [phone] Cristina Hsieh [facility] Unavailable +[phone] Dakota Tatum MD Unavailable + [phone] Dakota Tatum MD Unavailable + [phone] Srinivas Marie DO Unavailable [phone] Encounter Details Date Type Department Care Team (Late st Contact Info) Description 08/11/2023 MyC Medical Advice [facility] [address] [place] [phone] Gruendemann, Lecora Social History Tobacco Use [...] Sex Assigned at Female 08/17/2018 7:56 AM PROCESSING MGR Legal Sex Female 4:24 AM PROCESSING MGR Gender Identity Female 08/17/2018 7:56 AM PROCESSING MGR Sexual Orientation Straight 08/17/2018 7: 56 AM PROCESSING MGR documented as of this encounter Plan of Treatment Upcoming Encounters Date Type Department Care Team (Late st Contact Info) Description 09/07/2024 10:00 AM CDT Office Visit [facility] [address] 200 [place] [phone] Fransisco Eddy MD 515 [facility] 88 [place], [place] 792595 03/29/2025 3:40 PM CDT Office Visit [address] [phone] Alfreda Ray PA-C [address] [place] [address] 763912 documented as of this encounter Visit Diagnoses Not on filedocumented in this encounter Additional Health Concerns Assessment Noted Time PHQ-9 Depression Total Score: 5 03/09/20 23 10:57 AM CDT documented as of this encounter Care Teams Call Center Rn Relationship Specialty Start Date End Date Alfreda Ray PA-C [address] [place] [address] 980542 PCP - General Family Medicine 12/30/21 Alfreda Ray PA-C [address] [place] [address] 17781 Referring Physician Family Medicine 12/31/21 Katrin Orellana PA-C [address] [place] [address] 98 [place], [place] 076135 Physician Cell Efficiency Supervisor Dermatology 12/31/21 Shanna Vang PA-C [facility] [address] [place] [address] 520474 Assigned Cancer Care Provider 01/10/22 Frnasisco Eddy MD [address] [place] [address] 88 [place] [address] Assigned Rheumatology Provider 05/09/22 Katrin Orellana PA-C [address] [place] [address] [phone] Assigned Surgical Provider 08/15/22 02/10/24 Cristina Hsieh [facility] [address] [place] [address] [place] [address] Pharmacist Pharmacist 09/07/22 Alfreda Ray PA-C [address] [place] [address] 11230 Assigned Pain Medication Provider 09/05/22 09/10/23 Alfreda Ray PA-C [address] [place] [address] 515452 Assigned PCP 08/29/22 Cristina Hsieh [facility] [address] [place] [address] 80009 Assigned MTM Pharmacist 09/26/22 Dakota Tatum MD [address] [place] [address] 309635 Cardiovascular Disease 03/25/23 Dakota Tatum MD [address] [place] [address] 13237 Assigned Heart and Vascular Provider 05/01/23 [place] [address] [facility], [address] 471107 Assigned Musculoskeletal Provider 04/12/24 documented as of this encounter
--- OUTSIDE RECORDS SUMMARY | 2024-06-23 00:19 | XMS_ITS | Encounter Summary ---
Author Organization [place] Address [address] [place] [address] Care Team Providers Care Billet Straightener Name Role Phone Alfreda Ray PA-C Primary Care Provider + Alfreda Ray PA-C Unavailable +[phone] Katrin Orellana PA-C Unavailable [phone] Shanna Vang PA-C Unavailable +[phone] Fransisco Eddy MD Unavailable +[phone] Katrin Orellana PA-C Unavailable +[phone] Cristina Hsieh [facility] Unavailable +[phone] Alfreda Ray PA-C Unavailable + [phone] Alfreda Ray PA-C Unavailable +[phone] Cristina Hsieh [facility] Unavailable +[phone] Dakota Tatum MD Unavailable + [phone] Dakota Tatum MD Unavailable + [phone] Srinivas Marie DO Unavailable [phone] Reason for Visit * Reason Comments Medication Refill METHOTREXATE 50 MG/2 ML VIAL Encounter Details Date Type Department Care Team (Late st Contact Info) Description 06/20/[address] [facility] [address] [address] Fransisco Eddy MD [address] [place] [address] [phone] Medication Refill (METHOTREXATE 50 MG/2 ML VIAL) [...] in an overnight fci, or couch-surfing.) Yes 05/18/2023 Are you worried [...] Sex Assigned at Female 08/17/2018 7:[address] MACHINERY INSPECTOR Legal Sex Female 4:[address] MACHINERY INSPECTOR Gender Identity Female 08/17/2018 7:[address] MACHINERY INSPECTOR Sexual Orientation Straight 08/17/2018 7: [address] MACHINERY INSPECTOR documented as of this encounter Miscellaneous Notes * Telephone Encounter - Fransisco Eddy MD - 06/25/2023 5:[address] MACHINERY INSPECTOR Apologize for confusion engendered by last note and clinic visit. I expected methotrexate to have been discontinued now that patient is receiving Actemra. MACHINERY INSPECTOR * Telephone Encounter - Lynne Levy RN - 06/25/2023 1:34 PM CST METHOTREXATE 50 MG/2 ML VIAL Last Written Prescription Date: not on active med list Discontinued Therapy completed (No AVS) Cristina Hsieh, [facility] 03/04/23 1338 Last Office Visit: 06-17-23 [...] documentation of discontinue med found in note. MACHINERY INSPECTOR documented in this encounter Plan of Treatment Upcoming Encounters Date Type Department Care Team (Late st Contact Info) Description 09/07/2024 10:00 AM CDT Office Visit [address] [phone] Fransisco Eddy MD [address] [place] [address] 855465 03/29/2025 3:40 PM CDT Office Visit [address] [phone] Alfreda Ray PA-C [address] [place] [address] documented as of this encounter Visit Diagnoses Not on filedocumented in this encounter Additional Health Concerns Assessment Noted Time PHQ-9 Depression Total Score: 5 03/09/20 23 10:57 AM CDT documented as of this encounter Care Teams Billet Straightener Relationship Specialty Start Date End Date Alfreda Ray PA-C [address] [place] [address] 499662 PCP - General Family Medicine 12/30/21 Alfreda Ray PA-C [address] [place] [address] 04342 Referring Physician Family Medicine 12/31/21 Katrin Orellana PA-C [address] [place] [address] [phone] Physician Executive Assistant To President Dermatology 12/31/21 Shanna Vang PA-C [address] [place] [address] 327814 Assigned Cancer Care Provider 01/10/22 Fransisco Eddy MD [address] [place] [address] 811315 Assigned Rheumatology Provider 05/09/22 Katrin Orellana PA-C [address] [place] [address] 854505 Assigned Surgical Provider 08/15/22 02/10/24 Cristina Hsieh, [facility] [address] [place] [address] LISBETH HERNANDEZ [phone] Pharmacist Pharmacist 09/07/22 Alfreda Ray PA-C [address] [place] [address] Assigned Pain Medication Provider 09/05/22 09/10/23 Alfreda Ray PA-C [address] [place] [address] 36863 Assigned PCP 08/29/22 Cristina Hsieh, [facility] [address] [facility] [address] [place] [address] Assigned MTM Pharmacist 09/26/22 Dakota Tatum MD [address] [place] [address] 629185 Cardiovascular Disease 03/25/23 Dakota Tatum MD [address] [place] [address] 391795 Assigned Heart and Vascular Provider 05/01/23 [place] [address] CELE GASTELUM, [facility] [address] [place] [address] Assigned Musculoskeletal Provider 04/12/24 documented as of this encounter
--- OUTSIDE RECORDS SUMMARY | 2024-06-23 00:19 | XMS_ITS | Encounter Summary ---
Author Organization [place] Address [address] [place] [address]95 Care Team Providers Care Diagnostic Assistant Name Role Phone Alfreda Ray PA-C Primary Care Provider + Alfreda Ray PA-C Unavailable +[phone] Katrin Orellana PA-C Unavailable [phone] Shanna Vang PA-C Unavailable +[phone] Fransisco Eddy MD Unavailable [phone] Katrin Orellana PA-C Unavailable [phone] Cristina Hsieh [facility] Unavailable +[phone] Alfreda Ray PA-C Unavailable + [phone] Alfreda Ray PA-C Unavailable + [phone] Cristina Hsieh [facility] Unavailable +[phone] Dakota Tautm MD Unavailable + [phone] Dakota Tatum MD Unavailable + [phone] Srinivas Marie DO Unavailable [phone] Encounter Details Date Type Department Care Team (Late st Contact Info) Description 02/12/2023 [facility] [address] [address] Cristina Hsieh, [facility] 1600 [facility] 101 [place] [address] Social History Tobacco Use Types Packs/Day Years [...] Sex Assigned at Female 08/17/2018 7:56 AM TRANSITION MGR Legal Sex Female 4:24 AM TRANSITION MGR Gender Identity Female 08/17/2018 7:56 AM TRANSITION MGR Sexual Orientation Straight 08/17/2018 7: 56 AM TRANSITION MGR documented as of this encounter Plan of Treatment Upcoming Encounters Date Type Department Care Team (Late st Contact Info) Description 09/07/2024 10:00 AM CDT Office Visit [address] [phone] Fransicso Eddy MD [address] [place] [address] 03/29/2025 3:40 PM CDT Office Visit [address] [phone] Alfreda Ray PA-C [address] [place] [address] documented as of this encounter Visit Diagnoses Not on filedocumented in this encounter Additional Health Concerns Assessment Noted Time PHQ-9 Depression Total Score: 4 09/05/19 10:39 AM CDT documented as of this encounter Care Teams Diagnostic Assistant Relationship Specialty Start Date End Date Alfreda Ray PA-C [address] [place] [address] [phone] PCP - General Family Medicine 7/12/22 Alfreda Ray PA-C [address] [place] [address] 13535 Referring Physician Family Medicine 12/31/21 Katrin Orellana PA-C [address] [place] [address]20 Physician Ornamental Iron Worker Dermatology 12/31/21 Shanna Vang PA-C [address] [place] [address] 123564 Assigned Cancer Care Provider 01/10/22 Fransisco Eddy MD [address] [place] [address] 987755 Assigned Rheumatology Provider 05/09/22 Katrin Orellana PA-C [address] [place] [address] 359265 Assigned Surgical Provider 08/15/22 02/10/24 Cristina Hsieh [facility] [address] [place] [address] LISBETH HERNANDEZ [phone] Pharmacist Pharmacist 09/07/22 Alfreda Ray PA-C [address] [place] [address]7821 Assigned Pain Medication Provider 09/05/22 09/10/23 Alfreda Ray PA-C [address] [place] [address] 56600 Assigned PCP 08/29/22 Cristina Hsieh, [facility] 1600 [facility] [address] [place] [address] Assigned MTM Pharmacist 09/26/22 Dakota Tatum MD [address] [place] [address] 191095 Cardiovascular Disease 03/25/23 Dakota Tatum MD [address] [place] [address] 804305 Assigned Heart and Vascular Provider 05/01/23 [place] [address] CELE GASTELUM, [facility] [address] [place] [address] Assigned Musculoskeletal Provider 04/12/24 documented as of this encounter
[2024-06-23 00:20] LABS: Procalcitonin* 0.16 ng/mL (<0.50)
--- OUTSIDE RECORDS SUMMARY | 2024-06-23 00:20 | XMS_ITS | Encounter Summary ---
Author Organization [place] Address [address] [place] [address] 45467 Care Team Providers Care Cvor Nurse Name Role Phone Esperanza Gatica MD Unavailable + Alfreda Ray PA-C Primary Care Provider + Alfreda Ray PA-C Unavailable + Katrin Orellana PA-C Unavailable +[phone] Shanna Vang PA-C Unavailable +[phone] Fransisco Eddy MD Unavailable +[phone] Esperanza Gatica MD Unavailable + Esperanza Gatica MD Unavailable + Katrin Orellana PA-C Unavailable +[phone] Cristina Hsieh [facility] Unavailable +- [phone] Alfreda Ray PA-C Unavailable +260 Alfreda Ray PA-C Unavailable +260 Cristina Hsieh [facility] Unavailable +[phone] Dakota Tatum MD Unavailable + Dakota Tatum MD Unavailable + [phone] Srinivas Marie DO Unavailable +[phone] Encounter Details Date Type Department Care Team (Late Contact Info) Description 07/27/2022 MyC Medical Advice [address] [phone] Margie Santiago Social History Tobacco Use Types [...] Sex Assigned at Female 08/17/2018 7:56 AM TRAVERSE ROD ASSEMBLER Legal Sex Female 4:24 AM TRAVERSE ROD ASSEMBLER Gender Identity Female 08/17/2018 7:56 AM TRAVERSE ROD ASSEMBLER Sexual Orientation Straight 08/17/2018 7: 56 AM TRAVERSE ROD ASSEMBLER documented as of this encounter Plan of Treatment Upcoming Encounters Date Type Department Care Team (Late st Contact Info) Description 09/07/2024 10:00 AM CDT Office Visit [facility] [address] [phone] Fransisco Eddy MD [address] [place] [address] 935115 03/29/2025 3:40 PM CDT Office Visit [address] [phone] Alfreda Ray PA-C [address] [place] [address] 574672 documented as of this encounter Visit Diagnoses Not on filedocumented in this encounter Additional Health Concerns Assessment Noted Time PHQ-9 Depression Total Score: 4 09/05/19 10:39 AM CDT documented as of this encounter Care Teams Cvor Nurse Relationship Specialty Start Date End Date Alfreda Ray PA-C [address] [place] [address] 248122 PCP - General Family Medicine 12/30/21 [place] [address] [place] [address] Assigned PCP 09/29/20 07/31/22 Alfreda Ray PA-C [address] [place] [address] 51383 Referring Physician Family Medicine 12/31/21 Katrin Orellana PA-C [address] [place] [address] 71367 Physician Credit Coordinator Dermatology 12/31/21 Shanna Vang PA-C [address] [place] [address] 32867 Assigned Cancer Care Provider 01/10/22 Fransisco Eddy MD [address] [place] [address] 67539 Assigned Rheumatology Provider 05/09/22 [place] [address] [place] [address] Assigned Pain Medication Provider 06/29/22 09/04/22 [place] [address] [place] [address] Assigned PCP 08/15/22 08/28/22 Katrin Orellana PA-C [address] [place] [address] [place] [address] Assigned Surgical Provider 08/15/22 02/10/24 Cristina Hsieh [facility] [address] [facility] [place] HERNANDEZ [address] Pharmacist Pharmacist 09/07/22 Alfreda Ray PA-C [address] [place] [address] 98993 Assigned Pain Medication Provider 09/05/22 09/10/23 Alfreda Ray PA-C [address] [place] [address] 92531 Assigned PCP 08/29/22 Cristina Hsieh [facility] [address] [place] [address] 29463 Assigned MTM Pharmacist 09/26/22 Dakota Tatum MD [address] [place] [address] 04590 Cardiovascular Disease 03/25/23 Dakota Tatum MD [address] [place] [address] 74284 Assigned Heart and Vascular Provider 05/01/23 [place] [address] [address] Assigned Musculoskeletal Provider 04/12/24 documented as of this encounter
--- OUTSIDE RECORDS SUMMARY | 2024-06-23 00:20 | XMS_ITS | Encounter Summary ---
Author Organization [place] Address [address] [place] [address] 76718 Care Team Providers Care A/C Tech Name Role Phone Esperanza Gatica MD Primary Care Provider + Esperanza Gatica MD Unavailable + Jesús Orourke MD Unavailable Alfreda Ray-C Primary Care Provider + Alfreda RayC Unavailable +260 Katrin Orellana PA-C Unavailable +[phone] Shanna Vang PA-C Unavailable +[phone] Fransisco Eddy MD Unavailable +[phone] Esperanza Gatica MD Unavailable + Esperanza Gatica MD Unavailable + Katrin OrellanaC Unavailable +[phone] Cristina Hsieh [facility] Unavailable +[phone] Alfreda Ray PA-C Unavailable +2600 Alfreda Ray PA-C Unavailable +2600 Cristina Hsieh [facility] Unavailable +[phone] Dakota Tatum MD Unavailable Dakota Tatum MD Unavailable +[phone] Srinivas Marie DO Unavailable Encounter Details Date [...] Sex Assigned at Female 08/17/2018 7:56 AM SHEET IRONWORKER Legal Sex Female 4:24 AM SHEET IRONWORKER Gender Identity Female 08/17/2018 7:56 AM SHEET IRONWORKER Sexual Orientation Straight 08/17/2018 7: 56 AM SHEET IRONWORKER documented as of this encounter Plan of Treatment Upcoming Encounters Date Type Department Care Team (Late st Contact Info) Description 09/07/2024 10:00 AM CDT Office Visit [facility] [address] [phone] Fransisco Eddy MD [address] [place] [address] 486695 03/29/2025 3:40 PM CDT Office Visit [address] [place] [phone] Alfreda Ray PA-C [address] [place] [address] 524022 documented as of this encounter Visit Diagnoses Not on filedocumented in this encounter Additional Health Concerns Assessment Noted Time PHQ-9 Depression Total Score: 0 08/31/19 11:22 AM SHEET IRONWORKER documented as of this encounter Care Teams A/C Tech Relationship Specialty Start Date End Date Esperanza Gatica MD PCP - General Family Practice 10/13/11 12/29/21 Alfreda Ray PA-C [address] [place] [address] 429322 PCP - General Family Medicine 12/30/21 [place] [address] [address] [address] Assigned PCP 09/29/20 07/31/22 Jesú[place] [address] [address] Assigned Musculoskeletal Provider 10/20/20 04/17/22 Alfreda Ray PA-C [address] [place] [address] 53393 Referring Physician Family Medicine 12/31/21 Katrin Orellana PA-C [address] [place] [address] 817235 Physician Boat Officer Dermatology 12/31/21 Shanna Vang PA-C [facility] . [address] [place] [address] 79358 Assigned Cancer Care Provider 01/10/22 Fransisco Eddy MD [address] [place] [address] 11353 Assigned Rheumatology Provider 05/09/22 [place] [address] [address] [address] Assigned Pain Medication Provider 06/29/22 09/04/22 [place] [address] [place] [address] Assigned PCP 08/15/22 08/28/22 Katrin Orellana PA-C [address] [place] [address] 78762 Assigned Surgical Provider 08/15/22 02/10/24 Cristina Hsieh [facility] [address] [place] [address] [place] [address] Pharmacist Pharmacist 09/07/22 Alfreda Ray PA-C [address] [place] [address] 02160 Assigned Pain Medication Provider 09/05/22 09/10/23 Alfreda Ray PA-C [address] [place] [address] 56229 Assigned PCP 08/29/22 Cristina Hsieh [facility] [address] [address] Assigned MTM Pharmacist 09/26/22 Dakota Tatum MD [address] [place] [address] 54554 Cardiovascular Disease 03/25/23 Dakota Tatum MD [address] [place] [address] 69146 Assigned Heart and Vascular Provider 05/01/23 [place] [address] [address]AST[address], [address] [place] [address] Assigned Musculoskeletal Provider 04/12/24 documented as of this encounter
--- OUTSIDE RECORDS SUMMARY | 2024-06-23 00:20 | XMS_ITS | Encounter Summary ---
Author Organization [place] Address [address] [place] [address] 81891 Care Team Providers Care Instructional Coach Name Role Phone Esperanza Gatica MD Primary Care Provider + Esperanza Gatica MD Unavailable + Jesús Orourke MD Unavailable Alfreda Ray-C Primary Care Provider + Alfreda RayC Unavailable +260 Katrin Orellana PA-C Unavailable +1-21 Shanna Vang PA-C Unavailable +[phone] Fransisco Eddy MD Unavailable +[phone] Esperanza Gatica MD Unavailable + Esperanza Gatica MD Unavailable + Katrin OrellanaC Unavailable +[phone] Cristina Hsieh [facility] Unavailable +[phone] Alfreda Ray PA-C Unavailable +2600 Alfreda Ray PA-C Unavailable +2600 Cristina Hsieh [facility] Unavailable +[phone] Dakota Tatum MD Unavailable Dakota Tatum MD Unavailable + [phone] Srinivas Marie DO Unavailable [phone] Reason for Referral * Consultation (Routine: Next available opening) - Closed Specialty Diagnoses / Procedures Referred By Contmarcus t Referred To Contact Rheumatology Diagnoses Rheumatoid factor positive Polyarthralgia Alfreda Ray PA-C [address] [place] [address] 14796 Phone: tel: fax: Referral ID Status Reason Start Date Expiration Date Visits Re quested Visits Authorized [id number] Closed 10/07/2021 10/07/2022 1 1 Question Answer Reason for Referral Joint Pain, Other (Use Comments) - POS RA - persistent joint pain Scheduling Instructions: [facility] Rheumatology Public Events Facilities Rental Manager will call you to coordinate your care as prescribed by your provider. A artist representative will call you within 1 business day to help schedule your appointment, or you may contact the Public Events Facilities Rental Manager Orthopedic Nurse at [phone]. Comments Please be aware that coverage of these services is subject to the terms and limitations of your health insurance plan. Call member services at your health plan with any benefit or coverage questions. [facility] Rheumatology Public Events Facilities Rental Manager will call you to coordinate your care as prescribed by your provider. A artist representative will call you within 1 business day to help schedule your appointment, or you may contact the Public Events Facilities Rental Manager Orthopedic Nurse at [phone]. Reason for Visit * Reason Onset Date Comments MyChart Communication 10/05/2021 Encounter Details Date Type Department Care Team (Late st Contact Info) Description 10/05/2021 MyC Medical Advice [address] [place] [phone] Alfreda Ray PA-C [address] [place] [address] [phone] MyChart Communication Social History Tobacco Use Types [...] Sex Assigned at Female 08/17/2018 7:56 AM WARP PREPARER Legal Sex Female 4:24 AM WARP PREPARER Gender Identity Female 08/17/2018 7:56 AM WARP PREPARER Sexual Orientation Straight 08/17/2018 7: 56 AM WARP PREPARER COVID-19 Exposure Response Date Recorded In the [...] advise Thank you Camila Ackerman RN, BSN [place] Triage documented in this encounter Plan of Treatment Upcoming Encounters Date Type Department Care Team (Late st Contact Info) Description 09/07/2024 10:00 AM CDT Office Visit [facility] [address] [phone] Fransisco Eddy MD [address] [place] [address] 51080 03/29/2025 3:40 PM CDT Office Visit [address] [phone] Alfreda Ray PA-C [address] [place] [address] [phone] Scheduled Referrals Name Type Priority Associated Diagnoses Order Schedule Adult Rheumatology Public Events Facilities Rental Manager Referral Referral Routine: Next available opening Rheumatoid [...] documented as of this encounter Care Teams Instructional Coach Relationship Specialty Start Date End Date Esperanza Gatica MD PCP - General Family Practice 10/13/11 12/29/21 Alfreda Ray PA-C [address] [place] [address] 08031 PCP - General Family Medicine 12/30/21 [place] [address] [place] [address] Assigned PCP 09/29/20 07/31/22 Jesú[place] [address] [place] [address] Assigned Musculoskeletal Provider 10/20/20 04/17/22 Alfreda Ray PA-C [address] [place] [address] 88981 Referring Physician Family Medicine 12/31/21 Katrin Orellana PA-C [address] [place] [address] 61977 Physician Production Miner Dermatology 12/31/21 Shanna Vang PA-C [address] [place] [address] Assigned Cancer Care Provider 01/10/22 Fransisco Eddy MD [address] [place] [address] 88 [place] [address] Assigned Rheumatology Provider 05/09/22 [place] [address] [place] [address] Assigned Pain Medication Provider 06/29/22 09/04/22 [place] [address] [address] [place] [address] Assigned PCP 08/15/22 08/28/22 Katrin Orellana PA-C [address] [place] [address] 98 [place] [address] Assigned Surgical Provider 08/15/22 02/10/24 Cristina Hsieh R[facility] [address] [facility] [place]DEZ [address] Pharmacist Pharmacist 09/07/22 Alfreda Ray PA-C [address] [place] [address] 64173 Assigned Pain Medication Provider 09/05/22 09/10/23 Alfreda Ray PA-C [address] [place] [address] 04457 Assigned PCP 08/29/22 Cristina Hsieh [facility] 1600 [facility] [address] [place] [address] Assigned MTM Pharmacist 09/26/22 Dakota Tatum MD [address] [place] [address] 03448 Cardiovascular Disease 03/25/23 Dakota Tatum MD [address] [place] [address] 40727 Assigned Heart and Vascular Provider 05/01/23 [place] [address] CE[address] GASTELUM, [facility] [address] [place] [address] Assigned Musculoskeletal Provider 04/12/24 documented as of this encounter
--- OUTSIDE RECORDS SUMMARY | 2024-06-23 00:20 | XMS_ITS | Encounter Summary ---
Author Organization [place] Address [address] [place] [address] 12889 Care Team Providers Care Outsoles Channel Opener Name Role Phone Alfreda Ray PA-C Primary Care Provider + Alfreda Ray PA-C Unavailable + [phone] Katrin Orellana PA-C Unavailable [phone] Shanna Vang PA-C Unavailable +[phone] Fransisco Eddy MD Unavailable +[phone] Esperanza Gatica MD Unavailable +[phone] Esperanza Gatica MD Unavailable +[phone] Katrin Orellana PA-C Unavailable +[phone] Cristina Hsieh [facility] Unavailable +[phone] Alfreda Ray PA-C Unavailable + [phone] Alfreda Ray PA-C Unavailable + [phone] Cristina Hsieh [facility] Unavailable +[phone] Dakota Tatum MD Unavailable + [phone] Dakota Tatum MD Unavailable + [phone] Srinivas Marie DO Unavailable [phone] Encounter Details Date Type Department Care Team (Late st Contact Info) Description 08/27/2022 MyC Medical Advice [facility] [address] [place] [phone] Mindy Herron Social History Tobacco Use Types [...] Sex Assigned at Female 08/17/2018 7:56 AM MAGNETIC OBSERVER Legal Sex Female 4:24 AM MAGNETIC OBSERVER Gender Identity Female 08/17/2018 7:56 AM MAGNETIC OBSERVER Sexual Orientation Straight 08/17/2018 7: 56 AM MAGNETIC OBSERVER COVID-19 Exposure Response Date Recorded In the last 10 days, have yo u been in contact with someone who was confirmed or suspected to have Coronavirus/COVID-19? No / Unsure 08/26/2022 9:39 AM MAGNETIC OBSERVER documented as of this encounter Plan of Treatment Upcoming Encounters Date Type Department Care Team (Late st Contact Info) Description 09/07/2024 10:00 AM CDT Office Visit [facility] [address] [place] [phone] Fransisco Eddy MD [address] [place] [address] 88 [place] [address] 03/29/2025 3:40 PM CDT Office Visit [address] [place] [phone] Alfreda Ray PA-C [address] [place] [address] 136582 documented as of this encounter Visit Diagnoses Not on filedocumented in this encounter Additional Health Concerns Assessment Noted Time PHQ-9 Depression Total Score: 4 09/05/19 10:39 AM CDT documented as of this encounter Care Teams Outsoles Channel Opener Relationship Specialty Start Date End Date Alfreda Ray PA-C [address] [place] [address] 98383 PCP - General Family Medicine 12/30/21 Alfreda Ray PA-C [address] [place] [address] 54288 Referring Physician Family Medicine 12/31/21 Katrin Orellana PA-C [address] [place] [address] 949085 Physician Bi Technical Lead Dermatology 12/31/21 Shanna Vang PA-C [address] [place] [address] 870264 Assigned Cancer Care Provider 01/10/22 Fransisco Eddy MD [address] [place] [address] 419795 Assigned Rheumatology Provider 05/09/22 [place] [address] [address] [address] Assigned Pain Medication Provider 06/29/22 09/04/22 [place] [address] [address] [address] Assigned PCP 08/15/22 08/28/22 Katrin Orellana PA-C [address] [place] [address] 473675 Assigned Surgical Provider 08/15/22 02/10/24 Cristina Hsieh, [facility] 3305 [facility] [place]ETH [place]DE[place] [address] Pharmacist Pharmacist 09/07/22 Alfreda Ray PA-C [address] [place] [address] 921132 Assigned Pain Medication Provider 09/05/22 09/10/23 Alfreda Ray PA-C [address] [place] [address] 098062 Assigned PCP 08/29/22 Cristina Hiseh [facility] [address] [address] Assigned MTM Pharmacist 09/26/22 Dakota Tatum MD [address] [place] [address] 673955 Cardiovascular Disease 03/25/23 Dakota Tatum MD [address] [place] [address] 03571 Assigned Heart and Vascular Provider 05/01/23 [place] [address] [facility], [facility] [address] [place] [address] Assigned Musculoskeletal Provider 04/12/24 documented as of this encounter
--- OUTSIDE RECORDS SUMMARY | 2024-06-23 00:20 | XMS_ITS | Encounter Summary ---
Author Organization [place] Address [address] [place] [address] 15393 Care Team Providers Care Rn First Assistant Name Role Phone Esperanza Gatica MD Primary Care Provider + Esperanza Gatica MD Unavailable + Jesús Orourke MD Unavailable Alfreda Ray-C Primary Care Provider + Alfreda RayC Unavailable +260 Katrin Orellana PA-C Unavailable +[phone] Shanna Vang PA-C Unavailable +[phone] Fransisco Eddy MD Unavailable +[phone] Esperanza Gatica MD Unavailable + Esperanza Gatica MD Unavailable + Katrin OrellanaC Unavailable +[phone] Cristina Hsieh [facility] Unavailable +[phone] Alfreda Ray PA-C Unavailable +2600 Alfreda Ray PA-C Unavailable +2600 Cristina Hsieh [facility] Unavailable +[phone] Dakota Tatum MD Unavailable Dakota Tatum MD Unavailable + [phone] Srinivas Marie DO Unavailable [phone] Reason for Visit * Reason Onset Date Comments Refill Request 12/23/2021 Encounter Details Date Type Department Care Team (Late st Contact Info) Description 12/23/2021 MyC Refill [facility] [address] [place] [address] [place] [address] [place] [address] Refill Request Social History Tobacco [...] Sex Assigned at Female 08/17/2018 7:56 AM PROCESS CONTROL SUPERVISOR Legal Sex Female 4:24 AM PROCESS CONTROL SUPERVISOR Gender Identity Female 08/17/2018 7:56 AM PROCESS CONTROL SUPERVISOR Sexual Orientation Straight 08/17/2018 7: 56 AM PROCESS CONTROL SUPERVISOR COVID-19 Exposure Response Date Recorded In [...] PM) Provider Visit with Alfreda Ray PA-C [facility] (M [address] [phone] Mar 05, 2022 2:00 PM (Arrive by 1:40 PM) Annual Wellness Visit with Esperanza Gatica MD [facility] ([facility] ) [address] [place] [address] [phone] Yesi Britton RN documented in this encounter Plan of Treatment Upcoming Encounters Date Type Department Care Team (Late st Contact Info) Description 09/07/2024 10:00 AM CDT Office Visit [facility] [place] [address] [place] [phone] Fransisco Eddy MD [address] [place] [address] 379205 03/29/2025 3:40 PM CDT Office Visit [address] [phone] Alfreda Ray PA-C [address] [place] [address] 565072 documented as of this encounter Visit Diagnoses Diagnosis Primary osteoarthritis involving multiple joints documented in this encounter Additional Health Concerns Assessment Noted Time PHQ-9 Depression Total Score: 4 09/05/19 10:39 AM CDT documented as of this encounter Care Teams Rn First Assistant Relationship Specialty Start Date End Date Esperanza Gatica MD PCP - General Family Practice 10/13/11 12/29/21 Alfreda Ray PA-C [address] [place] [address] 707982 PCP - General Family Medicine 12/30/21 [place] [address] [place] [address] Assigned PCP 09/29/20 07/31/22 Jesú[place] [address] [address] Assigned Musculoskeletal Provider 10/20/20 04/17/22 Alfreda Ray PA-C [address] [place] [address] [phone] Referring Physician Family Medicine 12/31/21 Katrin Orellana PA-C [address] [place] [address] 978265 Physician Associate Civil Engineer Dermatology 12/31/21 Shanna Vang PA-C [facility] [address] 287244 Assigned Cancer Care Provider 01/10/22 Fransisco Eddy MD [address] [place] [address] 930675 Assigned Rheumatology Provider 05/09/22 [place] [address] [address] [address] Assigned Pain Medication Provider 06/29/22 09/04/22 [place] [address] [address] [address] Assigned PCP 08/15/22 08/28/22 Katrin Orellana PA-C [address] [place] [address] 831135 Assigned Surgical Provider 08/15/22 02/10/24 Cristina Hsieh [facility] 3305 [facility] L[place] HERNANDEZ [address] Pharmacist Pharmacist 09/07/22 Alfreda Ray PA-C [address] [place] [address] 857712 Assigned Pain Medication Provider 09/05/22 09/10/23 Alfreda Ray PA-C [address] [place] [address] 925612 Assigned PCP 08/29/22 Cristina Hsieh [place] [address] [place] [address] 39[address] Assigned MTM Pharmacist 09/26/22 Dakota Tatum MD [address] [place] [address] 529255 Cardiovascular Disease 03/25/23 Dakota Tatum MD [address] [place] [address] 26563 Assigned Heart and Vascular Provider 05/01/23 [place] [address] [address] Assigned Musculoskeletal Provider 04/12/24 documented as of this encounter
--- OUTSIDE RECORDS SUMMARY | 2024-06-23 00:20 | XMS_ITS | Encounter Summary ---
Author Organization [place] Address [address] [place] [address]. [place] [address] Care Team Providers Care Instrumentation And Controls Technician Name Role Phone Alfreda Ray PA-C Primary Care Provider + Alfreda Ray PA-C Unavailable + [phone] Katrin Orellana PA-C Unavailable +[phone] Shanna Vang PA-C Unavailable +[phone] Fransisco Eddy MD Unavailable +[phone] Katrin Orellana PA-C Unavailable +[phone] Cristina Hsieh [facility] Unavailable +[phone] Alfreda Ray PA-C Unavailable + [phone] Alfreda Ray PA-C Unavailable + [phone] Cristina Hsieh [facility] Unavailable +[phone] Dakota Tatum MD Unavailable + [phone] Dakota Tatum MD Unavailable + [phone] Srinivas Marie DO Unavailable [phone] Encounter Details Date Type Department Care Team (Late st Contact Info) Description 12/01/2022 MyC Medical Advice [facility] [address] [place] [address] Gia Weller Social History Tobacco [...] Sex Assigned at Female 08/17/2018 7:56 AM WIRE MESH FILTER FABRICATOR Legal Sex Female 4:24 AM WIRE MESH FILTER FABRICATOR Gender Identity Female 08/17/2018 7:56 AM WIRE MESH FILTER FABRICATOR Sexual Orientation Straight 08/17/2018 7: 56 AM WIRE MESH FILTER FABRICATOR COVID-19 Exposure Response Date Recorded In the [...] Office Visit [facility] [address] [phone] Fransisco Eddy MD [address] [place] [address] [phone] 03/29/2025 3:40 PM CDT Office Visit [address] [phone] Alfreda Ray PA-C [address] [place] [address] 245652 documented as of this encounter Visit Diagnoses Not on filedocumented in this encounter Additional Health Concerns Assessment Noted Time PHQ-9 Depression Total Score: 4 09/05/19 22 10:39 AM CDT documented as of this encounter Care Teams Instrumentation And Controls Technician Relationship Specialty Start Date End Date Alfreda Ray PA-C [address] [place] [address] [phone] PCP - General Family Medicine 12/30/21 Alfreda Ray PA-C [address] [place] [address] 24425 Referring Physician Family Medicine 12/31/21 Katrin Orellana PA-C [address] [place] [address] 39049 Physician Senior Production Supervisor Dermatology 12/31/21 Shanna Vang PA-C [address] [place] [address] 00545 Assigned Cancer Care Provider 01/10/22 Fransisco Eddy MD [address] [place] [address] 766325 Assigned Rheumatology Provider 05/09/22 Katrin Orellana PA-C [address] [place] [address] [phone] Assigned Surgical Provider 08/15/22 02/10/24 Cristina Hsieh, [facility] [address] [place] [address] LISBETH HERNANDEZ [phone] Pharmacist Pharmacist 09/07/22 Alfreda Ray PA-C [address] [place] [address] 359602 Assigned Pain Medication Provider 09/05/22 09/10/23 Alfreda Ray PA-C [address] [place] [address] 49320 Assigned PCP 08/29/22 Cristina Hsieh, [facility] [address] [facility] [address] [place] [address] Assigned MTM Pharmacist 09/26/22 Dakota Tatum MD [address] [place] [address] [phone] Cardiovascular Disease 03/25/23 Dakota Tatum MD [address] [place] [address]455 Assigned Heart and Vascular Provider 05/01/23 [place] [address] CE[address] GASTELUM, [facility] [address] [place] [address] Assigned Musculoskeletal Provider 04/12/24 documented as of this encounter
--- OUTSIDE RECORDS SUMMARY | 2024-06-23 00:20 | XMS_ITS | Encounter Summary ---
Author Organization [place] Address [address] [place] [address] Care Team Providers Care Inventory Administrator Name Role Phone Alfreda Ray PA-C Primary Care Provider + Alfreda Ray PA-C Unavailable +- [phone] Katrin Orellana PA-C Unavailable +[phone] Shanna Vang PA-C Unavailable +[phone] Fransisco Eddy MD Unavailable +[phone] Katrin Orellana PA-C Unavailable +[phone] Cristina Hsieh [facility] Unavailable +[phone] Alfreda Ray PA-C Unavailable + [phone] Alfreda Ray PA-C Unavailable + [phone] Cristina Hsieh [facility] Unavailable +[phone] Dakota Tatum MD Unavailable + [phone] Dakota Tatum MD Unavailable + [phone] Srinivas Marie DO Unavailable [phone] Encounter Details Date Type Department Care Team (Late st Contact Info) Description 11/23/2022 [facility] [address] [address] Fadumo Arboleda, RN Social History [...] Sex Assigned at Female 08/17/2018 7:56 AM PUTTY TINTER MAKER Legal Sex Female 4:24 AM PUTTY TINTER MAKER Gender Identity Female 08/17/2018 7:56 AM PUTTY TINTER MAKER Sexual Orientation Straight 08/17/2018 7: 56 AM PUTTY TINTER MAKER COVID-19 Exposure Response Date Recorded In the last 10 days, have yo u been in contact with someone who was confirmed or suspected to have Coronavirus/COVID-19? No / Unsure 11/06/2022 6:18 PM CDT documented as of this encounter Plan of Treatment Upcoming Encounters Date Type Department Care Team (Late st Contact Info) Description 09/07/2024 10:00 AM CDT Office Visit [facility] [address] [phone] Fransisco Eddy MD [address] [place] [address] [phone] 03/29/2025 3:40 PM CDT Office Visit [address] [phone] Alfreda Ray PA-C [address] [place] [address] 228592 documented as of this encounter Visit Diagnoses Not on filedocumented in this encounter Additional Health Concerns Assessment Noted Time PHQ-9 Depression Total Score: 4 09/05/19 22 10:39 AM CDT documented as of this encounter Care Teams Inventory Administrator Relationship Specialty Start Date End Date Alfreda Ray PA-C [address] [place] [address] [phone] PCP - General Family Medicine 12/30/21 Alfreda Ray PA-C [address] [place] [address] 55069 Referring Physician Family Medicine 12/31/21 Katrin Orellana PA-C [address] [place] [address]68[address] Physician Hand Ii Cutter Dermatology 12/31/21 Shanna Vang PA-C [address] [place] [address] 32891 Assigned Cancer Care Provider 01/10/22 Fransisco Eddy MD [address] [place] [address] 61246 Assigned Rheumatology Provider 05/09/22 Katrin Orellana PA-C [address] [place] [address] 52935 Assigned Surgical Provider 08/15/22 02/10/24 Cristina Hsieh, [facility] [address] [place] [address] [place] [address] Pharmacist Pharmacist 09/07/22 Alfreda Ray PA-C [address] [place] [address] 31687 Assigned Pain Medication Provider 09/05/22 09/10/23 Alfreda Ray PA-C [address] [place] [address] 43774 Assigned PCP 08/29/22 Cristina Hsieh, [facility] [address] [facility] [address] [place] [address] Assigned MTM Pharmacist 09/26/22 Dakota Tatum MD [address] [place] [address] [phone] Cardiovascular Disease 03/25/23 Dakota Tatum MD [address] [place] [address] 736325 Assigned Heart and Vascular Provider 05/01/23 [place] [address] CELE GASTELUM, [facility] [address] [place] [address] Assigned Musculoskeletal Provider 04/12/24 documented as of this encounter
--- OUTSIDE RECORDS SUMMARY | 2024-06-23 00:20 | XMS_ITS | Encounter Summary ---
Author Organization [place] Address [address] [place] [address] Care Team Providers Care Round Kiln Drawer Name Role Phone Esperanza Gatica MD Unavailable [phone] Alfreda Ray PA-C Primary Care Provider + Alfreda Ray PA-C Unavailable +[phone] Katrin Orellana PA-C Unavailable +[phone] Shanna Vang PA-C Unavailable +[phone] Fransisco Eddy MD Unavailable +[phone] Esperanza Gatica MD Unavailable +[phone] Esperanza Gatica MD Unavailable +[phone] Katrin Orellana PA-C Unavailable +[phone] Cristina Hsieh [facility] Unavailable +- [phone] Alfreda Ray PA-C Unavailable +[phone] Alfreda Ray PA-C Unavailable +260 Cristina Hsieh [facility] Unavailable +[phone] Dakota Tatum MD Unavailable + [phone] Dakota Tatum MD Unavailable + [phone] Srinivas Marie DO Unavailable [phone] Reason for Visit * Reason Onset Date Comments Medication Update 05/11/2022 Encounter Details Date Type Department Care Team (Late st Contact Info) Description 05/11/2022 Telephone [facility] [address] [place] [address] Fransisco Eddy MD [address] [place] [address] Medication Update Social History Tobacco Use [...] Sex Assigned at Female 08/17/2018 7:56 AM CAREER COUNSELOR Legal Sex Female 4:24 AM CAREER COUNSELOR Gender Identity Female 08/17/2018 7:56 AM CAREER COUNSELOR Sexual Orientation Straight 08/17/2018 7: 56 AM CAREER COUNSELOR COVID-19 Exposure Response Date Recorded In the last 10 days, have yo u been in contact with someone who was confirmed or suspected to have Coronavirus/COVID-19? No / Unsure 05/06/2022 9:52 AM CAREER COUNSELOR documented as of this encounter Miscellaneous Notes * Telephone Encounter - Lena Pina RN - 05/12/2022 8:03 AM CST RX's are pended for your signature. Lena Pina RN ER COUNSELOR * Telephone Encounter - Fransisco Eddy MD - 05/11/2022 6:29 PM CAREER COUNSELOR I am delighted to hear about the [...] these prescriptions for my review and signature. ER COUNSELOR * Telephone Encounter - Lena Pina RN - 05/11/2022 12:53 PM CAREER COUNSELOR Patient calling with follow up to 04/23 [...] Please advise. Thank you. Lena Pina RN ER COUNSELOR * Telephone Encounter - HamptonViktoria - 05/11/2022 11:33 AM CST [facility] Phone Message May a detailed message be left on voicemail: yes; please call home # Reason for Call: Medication Question or concern regarding medication Prescription Clarification Name of Medication: Prednisone Prescribing Provider: Dr. Eddy Pharmacy: [facility] in [place], [place] What on the order needs clarification? [...] Taken: Message routed to: Other: CS Rheumatology ER COUNSELOR documented in this encounter Plan of Treatment Upcoming Encounters Date Type Department Care Team (Late st Contact Info) Description 09/07/2024 10:00 AM CDT Office Visit [facility] [address] [phone] Fransisco Eddy MD [address] [place] [address] 966755 03/29/2025 3:40 PM CDT Office Visit [address] [phone] Alfreda Ray PA-C [address] [place] [address] [phone] documented as of this encounter Visit Diagnoses Diagnosis Inflammatory arthritis- Primary Unspecified inflammatory polyarthropathy documented in this encounter Additional Health Concerns Assessment Noted Time PHQ-9 Depression Total Score: 4 09/05/19 22 10:39 AM CDT documented as of this encounter Care Teams Round Kiln Drawer Relationship Specialty Start Date End Date Alfreda Ray PA-C [address] [place] [address] 988652 PCP - General Family Medicine 12/30/21 [place] [address] [place] [address] Assigned PCP 09/29/20 07/31/22 Alfreda Ray PA-C [address] [place] [address] 14649 Referring Physician Family Medicine 12/31/21 Katrin Orellana PA-C [address] [place] [address]459 Physician Background Check Coordinator Dermatology 12/31/21 Shanna Vang PA-C [address] [address] Assigned Cancer Care Provider 01/10/22 Fransisco Eddy MD [address] [place] [address] 25161 Assigned Rheumatology Provider 05/09/22 [place] [address] [place] [address] Assigned Pain Medication Provider 06/29/22 09/04/22 [place] [address] [place] [address] Assigned PCP 08/15/22 08/28/22 Katrin Orellana PA-C [address] [place] [address] 55308 Assigned Surgical Provider 08/15/22 02/10/[address] [facility] [address] [facility] LISBETH HERNANDEZ [address] Pharmacist Pharmacist 09/07/22 Alfreda Ray PA-C [address] [place] [address] Assigned Pain Medication Provider 09/05/22 09/10/23 Alfreda Ray PA-C [address] [place] [address] 18798 Assigned PCP 08/29/22 Cristina Hsieh, [facility] [address] [place] [address]187 Assigned MTM Pharmacist 09/26/22 Dakota Tatum MD [address] [place] [address] 02749 Cardiovascular Disease 03/25/23 Dakota Tatum MD [address] [place] [address] 18931 Assigned Heart and Vascular Provider 05/01/23 [place] [address] CELE GASTELUM, [address] [address] Assigned Musculoskeletal Provider 04/12/24 documented as of this encounter
--- OUTSIDE RECORDS SUMMARY | 2024-06-23 00:20 | XMS_ITS | Encounter Summary ---
Author Organization [place] Address [address] [place] [address] Care Team Providers Care Pc Tech Name Role Phone Esperanza Gatica MD Primary Care Provider + Esperanza Gatica MD Unavailable + Jesús Orourke MD Unavailable Alfreda Ray-C Primary Care Provider + Alfreda RayC Unavailable +[phone] Katrin Orelalna PA-C Unavailable +[phone] Shanna Vang PA-C Unavailable +[phone] Fransisco Eddy MD Unavailable +[phone] Esperanza Gatica MD Unavailable + Esperanza Gatica MD Unavailable + Katrin OrellanaC Unavailable +[phone] Cristina Hsieh [facility] Unavailable +[phone] Alfreda Ray PA-C Unavailable +[phone] Alfreda Ray PA-C Unavailable +2600 Cristina Hsieh [facility] Unavailable +[phone] Dakota Tatum MD Unavailable Dakota Tatum MD Unavailable +[phone] Srinivas Marie DO Unavailable [phone] Encounter Details Date Type Department Care Team (Late st Contact Info) Description 07/20/2021 MyC Medical Advice [facility] [address] [place] [phone] [place] [address] [place] [address] Social History Tobacco Use Types [...] Sex Assigned at Female 08/17/2018 7:56 AM FOLDED CLOTH TAPER Legal Sex Female 4:24 AM FOLDED CLOTH TAPER Gender Identity Female 08/17/2018 7:56 AM FOLDED CLOTH TAPER Sexual Orientation Straight 08/17/2018 7: 56 AM FOLDED CLOTH TAPER documented as of this encounter Miscellaneous Notes * Telephone Encounter - So Mathur RN - 07/21/2021 11:34 AM FOLDED CLOTH TAPER Called the pt. She started with symptoms - July 05. Just yesterday she felt good. She took a home test and she was positive. She also was [facility] the [facility]. Today and yesterday she felt better. No [...] for her granddaughters wedding in July to [place]. Advised she may want to do an e-visit if she would need a letter stating that she had covid and has recovered. She said she will try to do it the end of this week. ED CLOTH TAPER documented in this encounter Plan of Treatment Upcoming Encounters Date Type Department Care Team (Late st Contact Info) Description 09/07/2024 10:00 AM CDT Office Visit [facility] [address] [place] [address] Fransisco Eddy MD [address] [place] [address] 03/29/2025 3:40 PM CDT Office Visit [address] [phone] Alfreda Ray PA-C [address] [place] [address] 398662 documented as of this encounter Visit Diagnoses Not on filedocumented in this encounter Additional Health Concerns Assessment Noted Time PHQ-9 Depression Total Score: 0 08/31/19 11:22 AM FOLDED CLOTH TAPER documented as of this encounter Care Teams Pc Tech Relationship Specialty Start Date End Date Esperanza Gatica MD PCP - General Family Practice 10/13/11 12/29/21 Alfreda Ray PA-C [address] [place] [address] 078622 PCP - General Family Medicine 12/30/21 [place] [address] [place] [address] Assigned PCP 09/29/20 07/31/22 Jesú[place] [address] [address] Assigned Musculoskeletal Provider 10/20/20 04/17/22 Alfreda aRy PA-C [address] [place] [address] [phone] Referring Physician Family Medicine 12/31/21 Katrin Orellana PA-C [address] [place] [address] 333555 Physician Pasting Machine Offbearer Dermatology 12/31/21 Shanna Vang PA-C [address] [place] [address] 695894 Assigned Cancer Care Provider 01/10/22 Fransisco Eddy MD [address] [place] [address] 800855 Assigned Rheumatology Provider 05/09/22 [place] [address] [facility] [place] [address] Assigned Pain Medication Provider 06/29/22 09/04/22 [place] [address] [facility] [place] [address] Assigned PCP 08/15/22 08/28/22 Katrin Orellana PA-C [address] [place] [address] [phone] Assigned Surgical Provider 08/15/22 02/10/24 Cristina Hsieh [facility] [address] [place] [address] Pharmacist Pharmacist 09/07/22 Alfreda Ray PA-C [address] [place] [address] 29923 Assigned Pain Medication Provider 09/05/22 09/10/23 Alfreda Ray PA-C [address] [place] [address] 58790 Assigned PCP 08/29/22 Cristina Hsieh, [facility] [address] [address] Assigned MTM Pharmacist 09/26/22 Dakota Tatum MD [address] [place] [address] 90792 Cardiovascular Disease 03/25/23 Dakota Tatum MD [address] [place] [address]127 Assigned Heart and Vascular Provider 05/01/23 [place] [address] CELE GASTELUM, [address] [address] Assigned Musculoskeletal Provider 04/12/24 documented as of this encounter
--- OUTSIDE RECORDS SUMMARY | 2024-06-23 00:21 | XMS_ITS | Encounter Summary ---
Author Organization [place] Address [address] [place] [address] Care Team Providers Care Linoleum Printer Name Role Phone Esperanza Gatica MD Primary Care Provider + Esperanza Gatica MD Unavailable + Jesús Oruorke MD Unavailable Alfreda Ray-C Primary Care Provider + Alfreda RayC Unavailable +260 Katrin Orellana PA-C Unavailable +[phone] Shanna Vang PA-C Unavailable +[phone] Fransisco Eddy MD Unavailable +[phone] Esperanza Gatica MD Unavailable + Esperanza Gatica MD Unavailable + Katrin OrellanaC Unavailable +[phone] Cristina Hsieh [facility] Unavailable +[phone] Alfreda Ray PA-C Unavailable +2600 Alfreda Ray PA-C Unavailable +2600 Cristina Hsieh [facility] Unavailable +[phone] Dakota Tatum MD Unavailable Dakota Tatum MD Unavailable +[phone] Srinivas Marie Unavailable [phone] Encounter Details Date Type Department Care Team (Late Contact Info) Description 04/09/2021 MyC Medical Advice [facility] [address] [place] [phone] [place] [address] [place] [address] Social History Tobacco Use Types [...] Sex Assigned at Female 08/17/2018 7:56 AM SURGICAL ASSISTANT CERTIFIED Legal Sex Female 4:24 AM SURGICAL ASSISTANT CERTIFIED Gender Identity Female 08/17/2018 7:56 AM SURGICAL ASSISTANT CERTIFIED Sexual Orientation Straight 08/17/2018 7: 56 AM SURGICAL ASSISTANT CERTIFIED COVID-19 Exposure Response Date Recorded In the last month, have you been in contact with someone who was confirmed or suspected to have Coronavirus / COVID-19? No / Unsure 04/02/2021 10:04 AM CDT documented as of this encounter Plan of Treatment Upcoming Encounters Date Type Department Care Team (Late st Contact Info) Description 09/07/2024 10:00 AM CDT Office Visit [facility] [address] [place] [address] Fransisco Eddy MD [address] [place] [address] 03/29/2025 3:40 PM CDT Office Visit [address] [phone] Alfreda Ray PA-C [address] [place] [address] documented as of this encounter Visit Diagnoses Not on filedocumented in this encounter Additional Health Concerns Infection Onset Date Last Indicated Resolved Time Rule Out COVID-19 05/08/2021 05/08/2021 05/09/2021 9:08 PM SURGICAL ASSISTANT CERTIFIED Assessment Noted Time PHQ-9 Depression Total Score: 0 08/31/19 21 11:22 AM SURGICAL ASSISTANT CERTIFIED documented as of this encounter Care Teams Linoleum Printer Relationship Specialty Start Date End Date Esperanza Gatica MD PCP - General Family Practice 10/13/11 12/29/21 Alfreda Ray PA-C [address] [place] [address] PCP - General Family Medicine 12/30/21 [place] [address] [facility] [place] [address] Assigned PCP 09/29/20 07/31/22 Jesú[place] [address] [place] [address] Assigned Musculoskeletal Provider 10/20/20 04/17/22 Alfreda Ray PA-C [address] [place] [address] 087492 Referring Physician Family Medicine 12/31/21 Katrin Orellana PA-C [address] [place] [address] Physician Plaster Tender Dermatology 12/31/21 Shanna Vang PA-C [address] [place] [address] Assigned Cancer Care Provider 01/10/22 Fransisco Eddy MD [address] [place] [address] [address] [place] [address] Assigned Rheumatology Provider 05/09/22 [place] [address] [place] [address] Assigned Pain Medication Provider 06/29/22 09/04/22 [place] [address] [place] [address] Assigned PCP 08/15/22 08/28/22 Katrin Orellana PA-C [address] [place] [address] 271915 Assigned Surgical Provider 08/15/22 02/10/24 Cristina Hsieh [facility] [address] [place] [address] LISBETH HERNANDEZ [address] Pharmacist Pharmacist 09/07/22 Alfreda Ray PA-C [address] [place] [address] [phone] Assigned Pain Medication Provider 09/05/22 09/10/23 Alfreda Ray PA-C [address] [place] [address] 836312 Assigned PCP 08/29/22 Cristina Hsieh, [facility] [address] [facility] [address] [place] [address] Assigned MTM Pharmacist 09/26/22 Dakota Tatum MD [address] [place] [address] 509125 Cardiovascular Disease 03/25/23 Dakota Tatum MD [address] [place] [address] 425955 Assigned Heart and Vascular Provider 05/01/23 [place] [address] CELE GASTELUM, [place] [address] [place] [address] Assigned Musculoskeletal Provider 04/12/24 documented as of this encounter
--- OUTSIDE RECORDS SUMMARY | 2024-06-23 00:21 | XMS_ITS | Encounter Summary ---
Author Organization [facility] [place] Address [address] [place] [address] 39436 Care Team Providers Care Service Writer Advisor Name Role Phone Esperanza Gatica MD Primary Care Provider + Esperanza Gatica MD Unavailable + Jesús Orourke MD Unavailable Alfreda Ray-C Primary Care Provider + Alfreda RayC Unavailable +260 Katrin Orellana PA-C Unavailable +1-40 Shanna Vang PA-C Unavailable +[phone] Fransisco Eddy MD Unavailable +[phone] Esperanza Gatica MD Unavailable + Esperanza Gatica MD Unavailable + Katrin OrellanaC Unavailable +[phone] Cristina Hsieh [facility] Unavailable +[phone] Alfreda Ray PA-C Unavailable +2600 Alfreda Ray PA-C Unavailable +2600 Cristina Hsieh [facility] Unavailable +[phone] Dakota Tatum MD Unavailable Dakota Tatum MD Unavailable +[phone] Srinivas Marie Unavailable +[phone] Encounter Details Date Type Department Care Team (Late st Contact Info) Description 01/02/[address] [facility] [address] [place] [address] [place] [address] [place] [address] Social History Tobacco Use Types [...] Assigned at Female 08/17/2018 7:56 AM FIELD CONTROL INSPECTOR Legal Sex Female 4:24 AM FIELD CONTROL INSPECTOR Gender Identity Female 08/17/2018 7:56 AM FIELD CONTROL INSPECTOR Sexual Orientation Straight 08/17/2018 7: 56 AM FIELD CONTROL INSPECTOR COVID-19 Exposure Response Date Recorded In [...] CDT Office Visit [facility] [address] [place] [address] Fransisco Eddy MD [address] [place] [address] 03/29/2025 3:40 PM CDT Office Visit [address] [phone] Alfreda Ray PA-C [address] [place] [address] 28978 documented as of this encounter Visit Diagnoses Not on filedocumented in this encounter Additional Health Concerns Infection Onset Date Last Indicated Resolved Time Rule Out COVID-19 05/08/2021 05/08/2021 05/09/2021 9:08 PM FIELD CONTROL INSPECTOR Assessment Noted Time PHQ-9 Depression Total Score: 0 08/31/19 21 11:22 AM FIELD CONTROL INSPECTOR documented as of this encounter Care Teams Service Writer Advisor Relationship Specialty Start Date End Date Esperanza Gatica MD PCP - General Family Practice 10/13/11 12/29/21 Alfreda Ray PA-C [address] [place] [address] 61373 PCP - General Family Medicine 12/30/21 [place] [address] [facility] [place] [address] Assigned PCP 09/29/20 07/31/22 Jesú[place] [address] [address] Assigned Musculoskeletal Provider 10/20/20 04/17/22 Alfreda Ray PA-C [address] [place] [address] [phone] Referring Physician Family Medicine 12/31/21 Katrin Orellana PA-C [address] [place] [address] 62514 Physician Solar Sales Specialist Dermatology 12/31/21 Shanna Vang PA-C [address] [place] [address] Assigned Cancer Care Provider 01/10/22 Fransisco Eddy MD [address] [place] [address] [address] [place] [address] Assigned Rheumatology Provider 05/09/22 [place] [address] [place] [address] Assigned Pain Medication Provider 06/29/22 09/04/22 [place] [address] [place] [address] Assigned PCP 08/15/22 08/28/22 Katrin Orellana PA-C [address] [place] [address] 645615 Assigned Surgical Provider 08/15/22 02/10/24 Cristina Hsieh [facility] [address] [place] [address] LISBETH HERNANDEZ [address] Pharmacist Pharmacist 09/07/22 Alfreda Ray PA-C [address] [place] [address] 097252 Assigned Pain Medication Provider 09/05/22 09/10/23 Alfreda Ray PA-C [address] [place] [address] 950992 Assigned PCP 08/29/22 Cristina Hsieh, [facility] [address] [facility] [address] [place] [address] Assigned MTM Pharmacist 09/26/22 Dakota Tatum MD [address] [place] [address] 322245 Cardiovascular Disease 03/25/23 Dakota Tatum MD [address] [place] [address] 857275 Assigned Heart and Vascular Provider 05/01/23 [place] [address] [address], [facility] [address] [place] [address] Assigned Musculoskeletal Provider 04/12/24 documented as of this encounter
--- OUTSIDE RECORDS SUMMARY | 2024-06-23 00:21 | XMS_ITS | Encounter Summary ---
Author Organization [facility] Address [address] [place] [address]28 Care Team Providers Care Tank Washer Name Role Phone Esperanza Gatica MD Primary Care Provider + Esperanza Gatica MD Unavailable + Jesús Orourke MD Unavailable Alfreda Ray-C Primary Care Provider + Alfreda RayC Unavailable +260 Katrin Orellana PA-C Unavailable +[phone] Shanna Vang PA-C Unavailable +[phone] Fransisco Eddy MD Unavailable +[phone] Esperanza Gatica MD Unavailable + Esperanza Gatica MD Unavailable + Katrin OrellanaC Unavailable +[phone] Cristina Hsieh [facility] Unavailable +[phone] Alfreda Ray PA-C Unavailable +2600 Alfreda Ray PA-C Unavailable +2600 Cristina Hsieh [facility] Unavailable +[phone] Dakota Tatum MD Unavailable Dakota Tatum MD Unavailable +[phone] Srinivas Marie Unavailable [phone] Encounter Details Date Type Department Care Team (Late st Contact Info) Description 06/16/2021 MyC Medical Advice [facility] [address] [place] [phone] [place] [address] [place] [address] Social History Tobacco Use Types [...] Sex Assigned at Female 08/17/2018 7:56 AM FOREST LOGISTICS MANAGER Legal Sex Female 4:24 AM FOREST LOGISTICS MANAGER Gender Identity Female 08/17/2018 7:56 AM FOREST LOGISTICS MANAGER Sexual Orientation Straight 08/17/2018 7: 56 AM FOREST LOGISTICS MANAGER documented as of this encounter Plan of Treatment Upcoming Encounters Date Type Department Care Team (Late st Contact Info) Description 09/07/2024 10:00 AM CDT Office Visit [facility] [address] [phone] Fransisco Eddy MD [address] [place] [address] 781135 03/29/2025 3:40 PM CDT Office Visit [address] [place] [phone] Alfreda Ray PA-C [address] [place] [address] 870722 documented as of this encounter Visit Diagnoses Not on filedocumented in this encounter Additional Health Concerns Assessment Noted Time PHQ-9 Depression Total Score: 0 08/31/19 21 11:22 AM FOREST LOGISTICS MANAGER documented as of this encounter Care Teams Tank Washer Relationship Specialty Start Date End Date Esperanza Gatica MD PCP - General Family Practice 10/13/11 12/29/21 Alfreda Ray PA-C [address] [place] [address]4829 PCP - General Family Medicine 12/30/21 [place] [address] [place] [address] Assigned PCP 09/29/20 07/31/22 Jesú[place] [address] [place] [address] [address] Assigned Musculoskeletal Provider 10/20/20 04/17/22 Alfreda Ray PA-C [address] [place] [address] 231032 Referring Physician Family Medicine 12/31/21 Katrin Orellana PA-C [address] [place] [address] 33180 Physician Tie Layer Dermatology 12/31/21 Shanna Vang PA-C [address] [place] [address] 22036 Assigned Cancer Care Provider 01/10/22 Fransisco Eddy MD [address] [place] [address] 16826 Assigned Rheumatology Provider 05/09/22 [place] [address] [place] [address] Assigned Pain Medication Provider 06/29/22 09/04/22 [place] [address] [place] [address] Assigned PCP 08/15/22 08/28/22 Katrin Orellana PA-C [address] [place] [address] 077[address] Assigned Surgical Provider 08/15/22 02/10/24 Cristina Hsieh [facility] [address] [place] [address] [place] [address] Pharmacist Pharmacist 09/07/22 Alfreda Ray PA-C [address] [place] [address] 587762 Assigned Pain Medication Provider 09/05/22 09/10/23 Alfreda Ray PA-C [address] [place] [address] 342552 Assigned PCP 08/29/22 Cristina Hsieh [facility] [address] [address] Assigned MTM Pharmacist 09/26/22 Dakota Tatum MD [address] [place] [address] Cardiovascular Disease 03/25/23 Dakota Tatum MD [address] [place] [address] Assigned Heart and Vascular Provider 05/01/23 [place] [address] [address], [address] [address] Assigned Musculoskeletal Provider 04/12/24 documented as of this encounter
--- OUTSIDE RECORDS SUMMARY | 2024-06-23 00:21 | XMS_ITS | Encounter Summary ---
Author Organization [facility] Address [address] [place] [address]450 Care Team Providers Care Community Youth Secretary Name Role Phone Esperanza Gatica MD Primary Care Provider + Esperanza Gatica MD Unavailable + Jesús Orourke MD Unavailable Alfreda Ray-C Primary Care Provider + Alfreda RayC Unavailable +260 Katrin Orellana PA-C Unavailable +1-15 Shanna Vang PA-C Unavailable +[phone] Fransisco Eddy MD Unavailable +[phone] Esperanza Gatica MD Unavailable + Esperanza Gatica MD Unavailable + Katrin OrellanaC Unavailable +[phone] Cristina Hsieh [facility] Unavailable +[phone] Alfreda Ray PA-C Unavailable +2600 Alfreda Ray PA-C Unavailable +2600 Cristina Hsieh [facility] Unavailable +[phone] Dakota Tatum MD Unavailable Dakota Tatum MD Unavailable + [phone] Srinivas Marie DO Unavailable [phone] Reason for Visit * Reason Onset Date Comments MyChart Communication 04/07/2021 Medication question-HCTZ Encounter Details Date Type Department Care Team (Late st Contact Info) Description 04/07/2021 MyC Medical Advice [facility] [address] [place] [address] [place] [id number] [place] [address] MyChart Communication (Medication question... Social History [...] Sex Assigned at Female 08/17/2018 7:56 AM ROTOR PLATE WASHER Legal Sex Female 4:24 AM ROTOR PLATE WASHER Gender Identity Female 08/17/2018 7:56 AM ROTOR PLATE WASHER Sexual Orientation Straight 08/17/2018 7: 56 AM ROTOR PLATE WASHER COVID-19 Exposure Response Date Recorded In the [...] Visit [facility] [address] [address] Fransisco Eddy MD [address] [place] [address] 597575 03/29/2025 3:40 PM CDT Office Visit [address] [phone] Alfreda Ray PA-C [address] [place] [address]14 documented as of this encounter Visit Diagnoses Not on filedocumented in this encounter Additional Health Concerns Infection Onset Date Last Indicated Resolved Time Rule Out COVID-19 05/08/2021 05/08/2021 05/09/2021 9:08 PM ROTOR PLATE WASHER Assessment Noted Time PHQ-9 Depression Total Score: 0 08/31/19 21 11:22 AM ROTOR PLATE WASHER documented as of this encounter Care Teams Community Youth Secretary Relationship Specialty Start Date End Date Esperanza Gatica MD PCP - General Family Practice 10/13/11 12/29/21 Alfreda Ray PA-C [address] [place] [address] 14344 PCP - General Family Medicine 12/30/21 [place] [address] [place] [address] Assigned PCP 09/29/20 07/31/22 [place] [address] [place] [address] [place] [address] Assigned Musculoskeletal Provider 10/20/20 04/17/22 Alfreda Ray PA-C [address] [place] [address] Referring Physician Family Medicine 12/31/21 Katrin Orellana PA-C [address] [place] [address] [place] [address] Physician Sod Farmer Dermatology 12/31/21 Shanna Vang PA-C [address] [place] [address] 96162 Assigned Cancer Care Provider 01/10/22 Fransisco Eddy MD [address] [place] [address] Assigned Rheumatology Provider 05/09/22 [place] [address] [place] [address] Assigned Pain Medication Provider 06/29/22 09/04/22 [place] [address] [address] [facility] [place] [address] Assigned PCP 08/15/22 08/28/22 Katrin Orellana PA-C [address] [address] Assigned Surgical Provider 08/15/22 02/10/24 Cristina Hsieh [facility] [address] [place] [address] [place] [address] Pharmacist Pharmacist 09/07/22 Alfreda Ray PA-C [address] [place] [address] 90231 Assigned Pain Medication Provider 09/05/22 09/10/23 Alfreda Ray PA-C [facility] [place] [address] Assigned PCP 08/29/22 Cristina Hsieh, [facility] [address] [facility] [address] [place] [address] Assigned MTM Pharmacist 09/26/22 Dakota Tatum MD [address] [place] [address]120 Cardiovascular Disease 03/25/23 Dakota Tatum MD [address] [place] [address] Assigned Heart and Vascular Provider 05/01/23 [place] [address] [address], [facility] [[email or web address] [address] [place] [address] Assigned Musculoskeletal Provider 04/12/24 documented as of this encounter
--- OUTSIDE RECORDS SUMMARY | 2024-06-23 00:21 | XMS_ITS | Encounter Summary ---
Author Organization [facility] Address [address] [place] [address] 99894 Care Team Providers Care Candle Wrapping Machine Operator Name Role Phone Esperanza Gatica MD Primary Care Provider + Esperanza Gatica MD Unavailable + Jesús Orourke MD Unavailable Alfreda Ray-C Primary Care Provider + Alfreda RayC Unavailable +260 Katrin Orellana PA-C Unavailable +1-18 Shanna Vang PA-C Unavailable +[phone] Fransisco Eddy MD Unavailable +[phone] Esperanza Gatica MD Unavailable + Esperanza Gatica MD Unavailable + Katrin OrellanaC Unavailable +[phone] [facility] Unavailable +[phone] Alfreda Ray PA-C Unavailable +2600 Alfreda Ray PA-C Unavailable +[address] [facility] Unavailable +[phone] Dakota Tatum MD Unavailable Dakota Tatum MD Unavailable + [phone] Srinivas Marie DO Unavailable [phone] Encounter Details Date Type Department Care Team (Late st Contact Info) Description 03/03/2021 MyC Medical Advice [facility] [address] [place] [phone] [place] [address] [place] [address] Social History Tobacco Use Types [...] Assigned at Female 08/17/2018 7:56 AM ACCOUNT MAINTENANCE REPRESENTATIVE Legal Sex Female 4:24 AM ACCOUNT MAINTENANCE REPRESENTATIVE Gender Identity Female 08/17/2018 7:56 AM ACCOUNT MAINTENANCE REPRESENTATIVE Sexual Orientation Straight 08/17/2018 7: 56 AM ACCOUNT MAINTENANCE REPRESENTATIVE COVID-19 Exposure Response Date Recorded In [...] Description 09/07/2024 10:00 AM CDT Office Visit [address] [place] [address] Fransisco Eddy MD [address] [place] [address] 03/29/2025 3:40 PM CDT Office Visit [address] [phone] Alfreda Ray PA-C [address] [place] [address] 560202 documented as of this encounter Visit Diagnoses Not on filedocumented in this encounter Additional Health Concerns Infection Onset Date Last Indicated Resolved Time Rule Out COVID-19 05/08/2021 05/08/2021 05/09/2021 9:08 PM ACCOUNT MAINTENANCE REPRESENTATIVE Assessment Noted Time PHQ-9 Depression Total Score: 0 08/31/19 21 11:22 AM ACCOUNT MAINTENANCE REPRESENTATIVE documented as of this encounter Care Teams Candle Wrapping Machine Operator Relationship Specialty Start Date End Date Esperanza Gatica MD PCP - General Family Practice 10/13/11 12/29/21 Alfreda Ray PA-C [address] [place] [address] 129982 PCP - General Family Medicine 12/30/21 [place] [address] [place] [address] Assigned PCP 09/29/20 07/31/22 [place] [address] [place] [address] Assigned Musculoskeletal Provider 10/20/20 04/17/22 Alfreda Ray PA-C [address] [place] [address] Referring Physician Family Medicine 12/31/21 Katrin Orellana PA-C [address] [place] [address] Physician Software Quality Assurance Analyst Dermatology 12/31/21 Shanna Vang PA-C [address] [place] [address] Assigned Cancer Care Provider 01/10/22 Fransisco Eddy MD [address] [place] [address] 544125 Assigned Rheumatology Provider 05/09/22 [place] [address] [place] [address] Assigned Pain Medication Provider 06/29/22 09/04/22 [place] [address] [place] [address] Assigned PCP 08/15/22 08/28/22 Katrin Orellana PA-C [address] [place] [address]177 Assigned Surgical Provider 08/15/22 02/10/[address] [facility] [address] [place] [address] [place] [address] Pharmacist Pharmacist 09/07/22 Alfreda Ray PA-C [address] [place] [address] Assigned Pain Medication Provider 09/05/22 09/10/23 Alfreda Ray PA-C [address] [place] [address]287 Assigned PCP 08/29/22 Cristina Hsieh, [facility] [address] [place] [address] 9[address] Assigned MTM Pharmacist 09/26/22 Dakota Tatum MD [address] [place] [address]19 Cardiovascular Disease 03/25/23 Dakota Tatum MD [address] [place] [address]33 Assigned Heart and Vascular Provider 05/01/23 [place] [address] [address] Assigned Musculoskeletal Provider 04/12/24 documented as of this encounter
--- OUTSIDE RECORDS SUMMARY | 2024-06-23 00:21 | XMS_ITS | Encounter Summary ---
Author Organization [facility] Address [address] [place] [address] Care Team Providers Care Diesel Crane Operator Name Role Phone Esperanza Gatica MD Primary Care Provider + Esperanza Gatica MD Unavailable + Jesús Orourke MD Unavailable Alfreda Ray-C Primary Care Provider + Alfreda RayC Unavailable +260 Katrin Orellana PA-C Unavailable +1-75 Shanna Vang PA-C Unavailable +[phone] Fransisco Eddy MD Unavailable +[phone] Esperanza Gatica MD Unavailable + Esperanza Gatica MD Unavailable + Katrin OrellanaC Unavailable +[phone] Cristina Hsieh [facility] Unavailable +[phone] Alfreda Ray PA-C Unavailable +2600 Alfreda Ray PA-C Unavailable +2600 Cristina Hsieh [facility] Unavailable +[phone] Dakota Tatum MD Unavailable Dakota Tatum MD Unavailable + [phone] Srinivas Marie DO Unavailable [phone] Reason for Visit * Reason Onset Date Comments Hip Pain 01/17/2021 Encounter Details Date Type Department Care Team (Late st Contact Info) Description 01/17/2021 MyC Medical Advice [facility] [address] [place] [address] [place] [address] [place] [address] Hip Pain Social History Tobacco [...] Sex Assigned at Female 08/17/2018 7:56 AM SAFETY COMPLIANCE SPECIALIST Legal Sex Female 4:24 AM SAFETY COMPLIANCE SPECIALIST Gender Identity Female 08/17/2018 7:56 AM SAFETY COMPLIANCE SPECIALIST Sexual Orientation Straight 08/17/2018 7: 56 AM SAFETY COMPLIANCE SPECIALIST COVID-19 Exposure Response Date Recorded In [...] Office Visit [facility] [address] [place] [phone] Fransisco Eddy MD [address] [place] [address] 03/29/2025 3:40 PM CDT Office Visit [address] [phone] Alfreda Ray PA-C [address] [place] [address] 083642 documented as of this encounter Visit Diagnoses Not on filedocumented in this encounter Additional Health Concerns Infection Onset Date Last Indicated Resolved Time Rule Out COVID-19 05/08/2021 05/08/2021 05/09/2021 9:08 PM SAFETY COMPLIANCE SPECIALIST Assessment Noted Time PHQ-9 Depression Total Score: 0 08/31/19 21 11:22 AM SAFETY COMPLIANCE SPECIALIST documented as of this encounter Care Teams Diesel Crane Operator Relationship Specialty Start Date End Date Esperanza Gatica MD PCP - General Family Practice 10/13/11 12/29/21 Alfreda Ray PA-C [address] [place] [address] 926572 PCP - General Family Medicine 12/30/21 [place] [address] [place] [address] Assigned PCP 09/29/20 07/31/22 Jesú[place] [address] [facility] [place] [address] Assigned Musculoskeletal Provider 10/20/20 04/17/22 Alfreda Ray PA-C [address] [place] [address] 460762 Referring Physician Family Medicine 12/31/21 Katrin Orellana PA-C [address] [place] [address] 127725 Physician Bank President Dermatology 12/31/21 Shanna Vang PA-C [address] 417924 Assigned Cancer Care Provider 01/10/22 Fransisco Eddy MD [address] [place] [address] 443935 Assigned Rheumatology Provider 05/09/22 [place] [address] [place] [address] Assigned Pain Medication Provider 06/29/22 09/04/22 [place] [address] [place] [address] Assigned PCP 08/15/22 08/28/22 Katrin Orellana PA-C [address] [place] [address] 694435 Assigned Surgical Provider 08/15/22 02/10/24 Cristina Hsieh [facility] [address] [facility] [place] [address] Pharmacist Pharmacist 09/07/22 Alfreda Ray PA-C [address] [place] [address] 531252 Assigned Pain Medication Provider 09/05/22 09/10/23 Alfreda Ray PA-C [address] [place] [address] 410862 Assigned PCP 08/29/22 Cristina Hsieh [facility] [address] [place] [address]338 Assigned MTM Pharmacist 09/26/22 Dakota Tatum MD [address] [place] [address]896 Cardiovascular Disease 03/25/23 Dakota Tatum MD [address] [place] [address] 99633 Assigned Heart and Vascular Provider 05/01/23 [place] [address] [place] , [address] [address] Assigned Musculoskeletal Provider 04/12/24 documented as of this encounter
--- OUTSIDE RECORDS SUMMARY | 2024-06-23 00:21 | XMS_ITS | Encounter Summary ---
Author Organization [place] Address [address] [place] [address] 55675 Care Team Providers Care Log Manager Name Role Phone Esperanza Gatica MD Primary Care Provider + Esperanza Gatica MD Unavailable + Jesús Orourke MD Unavailable Alfreda Ray-C Primary Care Provider + Alfreda RayC Unavailable +260 Katrin Orellana PA-C Unavailable +1-24 Shanna Vang PA-C Unavailable +[phone] Fransisco Eddy MD Unavailable +[phone] Esperanza Gatica MD Unavailable + Esperanza Gatica MD Unavailable + Katrin OrellanaC Unavailable +[phone] Cristina Hsieh [facility] Unavailable +[phone] Alfreda Ray PA-C Unavailable +2600 Alfreda Ray PA-C Unavailable +2600 Cristina Hsieh [facility] Unavailable +[phone] Dakota Tatum MD Unavailable Dakota Tatum MD Unavailable +[phone] Srinivas Marie Unavailable +[phone] Encounter Details Date Type Department Care Team (Late st Contact Info) Description 01/02/2021 MyC Medical Advice [facility] [address] [place] [address] [place] [address] [place] [address] Social History Tobacco Use Types [...] Sex Assigned at Female 08/17/2018 7:56 AM DRILLER HAND Legal Sex Female 4:24 AM DRILLER HAND Gender Identity Female 08/17/2018 7:56 AM DRILLER HAND Sexual Orientation Straight 08/17/2018 7: 56 AM DRILLER HAND COVID-19 Exposure Response Date Recorded In the last month, have you been in contact with someone who was confirmed or suspected to have Coronavirus / COVID-19? No / Unsure 12/31/2020 8:35 AM CDT documented as of this encounter Plan of Treatment Upcoming Encounters Date Type Department Care Team (Late st Contact Info) Description 09/07/2024 10:00 AM CDT Office Visit [facility] [address] [place] [address] Fransisco Eddy MD [address] [place] [address] 03/29/2025 3:40 PM CDT Office Visit [address] [phone] Alfreda Ray PA-C [address] [place] [address]51 documented as of this encounter Visit Diagnoses Not on filedocumented in this encounter Additional Health Concerns Infection Onset Date Last Indicated Resolved Time Rule Out COVID-19 05/08/2021 05/08/2021 05/09/2021 9:08 PM DRILLER HAND Assessment Noted Time PHQ-9 Depression Total Score: 0 08/31/19 21 11:22 AM DRILLER HAND documented as of this encounter Care Teams Log Manager Relationship Specialty Start Date End Date Esperanza Gatica MD PCP - General Family Practice 10/13/11 12/29/21 Alfreda Ray PA-C [address] [place] [address] 26033 PCP - General Family Medicine 12/30/21 [place] [address] [facility] [place] [address] Assigned PCP 09/29/20 07/31/22 Jesú[place] [address] [place] [address] Assigned Musculoskeletal Provider 10/20/20 04/17/22 Alfreda Ray PA-C [address] [place] [address] 247962 Referring Physician Family Medicine 12/31/21 Katrin Orellana PA-C [address] [place] [address] 89080 Physician Customer Support Coordinator Dermatology 12/31/21 Shanna Vang PA-C [address] [place] [address] Assigned Cancer Care Provider 01/10/22 Fransisco Eddy MD [address] [place] [address] 88 [place] [address] Assigned Rheumatology Provider 05/09/22 [place] [address] [place] [address] Assigned Pain Medication Provider 06/29/22 09/04/22 [place] [address] [place] [address] Assigned PCP 08/15/22 08/28/22 Katrin Orellana PA-C [address] [place] [address] 227255 Assigned Surgical Provider 08/15/22 02/10/24 Cristina Hsieh [facility] [address] [place] [address] LSIBETH HERNANDEZ [address] Pharmacist Pharmacist 09/07/22 Alfreda Ray PA-C [address] [place] [address] 338252 Assigned Pain Medication Provider 09/05/22 09/10/23 Alfreda Ray PA-C [address] [place] [address] 516592 Assigned PCP 08/29/22 Cristina Hsieh, [facility] [address] [facility] [address] [place] [address] Assigned MTM Pharmacist 09/26/22 Dakota Tatum MD [address] [place] [address] 799885 Cardiovascular Disease 03/25/23 Dakota Tatum MD [address] [place] [address] 136375 Assigned Heart and Vascular Provider 05/01/23 [place] [address] [address], [facility] [address] [place] [address] Assigned Musculoskeletal Provider 04/12/24 documented as of this encounter
--- OUTSIDE RECORDS SUMMARY | 2024-06-23 00:21 | XMS_ITS | Encounter Summary ---
Author Organization [place] Address [address] [place] [address] Care Team Providers Care Payroll Master Name Role Phone Esperanza Gatica MD Primary Care Provider + Esperanza Gatica MD Unavailable + Jesús Orourke MD Unavailable Alfreda aRy-C Primary Care Provider + Alfreda RayC Unavailable +260 Katrin Orellana PA-C Unavailable +[phone] Shanna Vang PA-C Unavailable +[phone] Fransisco Eddy MD Unavailable +[phone] Esperanza Gatica MD Unavailable + Esperanza Gatica MD Unavailable + Katrin OrellanaC Unavailable +[phone] Cristina Hsieh [facility] Unavailable +[phone] Alfreda Ray PA-C Unavailable +2600 Alfreda Ray PA-C Unavailable +2600 Cristina Hsieh [facility] Unavailable +[phone] Dakota Tatum MD Unavailable Dakota Tatum MD Unavailable +[phone] Srinivas Marie Unavailable [phone] Encounter Details Date Type Department Care Team (Late st Contact Info) Description 01/02/2021 MyC Medical Advice [facility] [address] [place] [address] [place] [address] [place] [address] Social History Tobacco Use Types [...] Sex Assigned at Female 08/17/2018 7:56 AM SOLID FIBER PASTER OPERATOR Legal Sex Female 4:24 AM SOLID FIBER PASTER OPERATOR Gender Identity Female 08/17/2018 7:56 AM SOLID FIBER PASTER OPERATOR Sexual Orientation Straight 08/17/2018 7: 56 AM SOLID FIBER PASTER OPERATOR COVID-19 Exposure Response Date Recorded In [...] Office Visit [facility] [address] [place] [address] Fransisco Eddy MD [address] [place] [address] 03/29/2025 3:40 PM CDT Office Visit [address] [phone] Alfreda Ray PA-C [address] [place] [address] documented as of this encounter Visit Diagnoses Not on filedocumented in this encounter Additional Health Concerns Infection Onset Date Last Indicated Resolved Time Rule Out COVID-19 05/08/2021 05/08/2021 05/09/2021 9:08 PM SOLID FIBER PASTER OPERATOR Assessment Noted Time PHQ-9 Depression Total Score: 0 08/31/19 21 11:22 AM SOLID FIBER PASTER OPERATOR documented as of this encounter Care Teams Payroll Master Relationship Specialty Start Date End Date Esperanza Gatica MD PCP - General Family Practice 10/13/11 12/29/21 Alfreda Ray PA-C [address] [place] [address] 30619 PCP - General Family Medicine 12/30/21 [place] [address] [facility] [place] [address] Assigned PCP 09/29/20 07/31/22 Jesú[place] [address] [place] [address] Assigned Musculoskeletal Provider 10/20/20 04/17/22 Alfreda Ray PA-C [address] [place] [address] 464732 Referring Physician Family Medicine 12/31/21 Katrin Orellana PA-C [address] [place] [address] Physician Tobacco Weigher Dermatology 12/31/21 Shanna Vang PA-C [address] [place] [address] Assigned Cancer Care Provider 01/10/22 Fransisco Eddy MD [address] [place] [address] 88 [place] [address] Assigned Rheumatology Provider 05/09/22 [place] [address] [place] [address] Assigned Pain Medication Provider 06/29/22 09/04/22 [place] [address] [place] [address] Assigned PCP 08/15/22 08/28/22 Katrin Orellana PA-C [address] [place] [address] 661515 Assigned Surgical Provider 08/15/22 02/10/24 Cristina Hsieh [facility] [address] [place] [address] LISBETH HERNANDEZ [address] Pharmacist Pharmacist 09/07/22 Alfreda Ray PA-C [address] [place] [address] 745272 Assigned Pain Medication Provider 09/05/22 09/10/23 Alfreda Ray PA-C [address] [place] [address] [phone] Assigned PCP 08/29/22 Cristina Hsieh, [facility] 1600 [facility] [address] [place] [address] Assigned MTM Pharmacist 09/26/22 Dakota Ttaum MD [address] [place] [address] 945345 Cardiovascular Disease 03/25/23 Dakota Tatum MD [address] [place] [address] 250935 Assigned Heart and Vascular Provider 05/01/23 [place] [address] [address], [facility] [address] [place] [address] Assigned Musculoskeletal Provider 04/12/24 documented as of this encounter
--- OUTSIDE RECORDS SUMMARY | 2024-06-23 00:22 | XMS_ITS | Encounter Summary ---
Author Organization [place] Address [address] [place] [address] Care Team Providers Care Salesperson Men'S Hats Name Role Phone Esperanza Gatica MD Primary Care Provider + Esperanza Gatica MD Unavailable + Jesús Orourke MD Unavailable Alfreda Ray-C Primary Care Provider + Alfreda RayC Unavailable +260 Katrin Orellana PA-C Unavailable +1-45 Shanna Vang PA-C Unavailable +[phone] Fransisco Eddy MD Unavailable +[phone] Esperanza Gatica MD Unavailable + Esperanza Gatica MD Unavailable + Katrin OrellanaC Unavailable +[phone] Cristina Hsieh [facility] Unavailable +[phone] Alfreda Ray PA-C Unavailable +2600 Alfreda Ray PA-C Unavailable +2600 Cristina Hsieh [facility] Unavailable +[phone] Dakota Tatum MD Unavailable Dakota Tatum MD Unavailable +[phone] Srinivas Marie Unavailable [phone] Encounter Details Date Type Department Care Team (Late Contact Info) Description 10/29/2020 MyC Medical Advice [facility] [address] [place] [address] [place] [address] [place] [address] Social History Tobacco Use Types [...] Sex Assigned at Female 08/17/2018 7:56 AM DISABILITY BENEFITS SPECIALIST Legal Sex Female 4:24 AM DISABILITY BENEFITS SPECIALIST Gender Identity Female 08/17/2018 7:56 AM DISABILITY BENEFITS SPECIALIST Sexual Orientation Straight 08/17/2018 7: 56 AM DISABILITY BENEFITS SPECIALIST COVID-19 Exposure Response Date Recorded In [...] [facility] [address] [place] [address] Fransisco Eddy MD [address] [place] [address] 03/29/2025 3:40 PM CDT Office Visit [address] [phone] Alfreda Ray PA-C [address] [place] [address] 27118 documented as of this encounter Visit Diagnoses Not on filedocumented in this encounter Additional Health Concerns Infection Onset Date Last Indicated Resolved Time Rule Out COVID-19 05/08/2021 05/08/2021 05/09/2021 9:08 PM DISABILITY BENEFITS SPECIALIST Assessment Noted Time PHQ-9 Depression Total Score: 0 08/31/19 21 11:22 AM DISABILITY BENEFITS SPECIALIST documented as of this encounter Care Teams Salesperson Men'S Hats Relationship Specialty Start Date End Date Esperanza Gatica MD PCP - General Family Practice 10/13/11 12/29/21 Alfreda Ray PA-C [address] [place] [address] 71630 PCP - General Family Medicine 12/30/21 [place] [address] [facility] [address] Assigned PCP 09/29/20 07/31/22 Jesú[place] [address] [place] [address] Assigned Musculoskeletal Provider 10/20/20 04/17/22 Alfreda Ray PA-C [address] [place] [address] 292652 Referring Physician Family Medicine 12/31/21 Katrin Orellana PA-C [address] [place] [address] 61101 Physician Budget Manager Dermatology 12/31/21 Shanna Vang PA-C [address] [place] [address] Assigned Cancer Care Provider 01/10/22 Fransisco Eddy MD [address] [place] [address] 88 [place] [address] Assigned Rheumatology Provider 05/09/22 [place] [address] [place] [address] Assigned Pain Medication Provider 06/29/22 09/04/22 [place] [address] [place] [address] Assigned PCP 08/15/22 08/28/22 Katrin Orellana PA-C [address] [place] [address] 918455 Assigned Surgical Provider 08/15/22 02/10/24 Cristina Hsieh [facility] [address] [place] [address] LISBETH HERNANDEZ [address] Pharmacist Pharmacist 09/07/22 Alfreda Ray PA-C [address] [place] [address] 295162 Assigned Pain Medication Provider 09/05/22 09/10/23 Alfreda Ray PA-C [address] [place] [address] 779142 Assigned PCP 08/29/22 Cristina Hsieh, [facility] 1600 [facility] [address] [place] [address] Assigned MTM Pharmacist 09/26/22 Dakota Tatum MD [address] [place] [address] [phone] Cardiovascular Disease 03/25/23 Dakota Tatum MD [address] [place] [address] 789315 Assigned Heart and Vascular Provider 05/01/23 [place] [address] [address], [facility] [place] [address] [place] [address] Assigned Musculoskeletal Provider 04/12/24 documented as of this encounter
--- OUTSIDE RECORDS SUMMARY | 2024-06-23 00:22 | XMS_ITS | Encounter Summary ---
Author Organization [place] Address [address] [place] [address] 30657 Care Team Providers Care Wine Blender Name Role Phone Esperanza Gatica MD Primary Care Provider + Esperanza Gatica MD Unavailable + Jesús Orourke MD Unavailable Alfreda Ray-C Primary Care Provider + Alfreda RayC Unavailable +260 Katrin Orellana PA-C Unavailable +1-01 Shanna Vang PA-C Unavailable +[phone] Fransisco Eddy MD Unavailable +[phone] Esperanza Gatica MD Unavailable + Esperanza Gatica MD Unavailable + Katrin OrellanaC Unavailable +[phone] Cristina Hsieh [facility] Unavailable +[phone] Alfreda Ray PA-C Unavailable +2600 Alfreda Ray PA-C Unavailable +2600 Cristina Hsieh [facility] Unavailable +[phone] Dakota Tatum MD Unavailable Dakota Tatum MD Unavailable +[phone] Srinivas Marie Unavailable [phone] Encounter Details Date Type Department Care Team (Late st Contact Info) Description 01/01/2021 MyC Medical Advice [facility] [address] [place] [phone] [place] [address] [place] [address] Social History Tobacco Use Types [...] Sex Assigned at Female 08/17/2018 7:56 AM GAS TURBINE POWERPLANT MECHANIC Legal Sex Female 4:24 AM GAS TURBINE POWERPLANT MECHANIC Gender Identity Female 08/17/2018 7:56 AM GAS TURBINE POWERPLANT MECHANIC Sexual Orientation Straight 08/17/2018 7: 56 AM GAS TURBINE POWERPLANT MECHANIC COVID-19 Exposure Response Date Recorded In the [...] Office Visit [facility] [address] [place] [address] Fransisco Eddy MD [address] [place] [address] 03/29/2025 3:40 PM CDT Office Visit [address] [phone] Alfreda Ray PA-C [address] [place] [address] 22210 documented as of this encounter Visit Diagnoses Not on filedocumented in this encounter Additional Health Concerns Infection Onset Date Last Indicated Resolved Time Rule Out COVID-19 05/08/2021 05/08/2021 05/09/2021 9:08 PM GAS TURBINE POWERPLANT MECHANIC Assessment Noted Time PHQ-9 Depression Total Score: 0 08/31/19 21 11:22 AM GAS TURBINE POWERPLANT MECHANIC documented as of this encounter Care Teams Wine Blender Relationship Specialty Start Date End Date Esperanza Gatica MD PCP - General Family Practice 10/13/11 12/29/21 Alfreda Ray PA-C [address] [place] [address] 62352 PCP - General Family Medicine 12/30/21 [place] [address] [facility] [place] [address] Assigned PCP 09/29/20 07/31/22 Jesú[place] [address] [place] [address] Assigned Musculoskeletal Provider 10/20/20 04/17/22 Alfreda Ray PA-C [address] [place] [address] 556012 Referring Physician Family Medicine 12/31/21 Katrin Orellana PA-C [address] [place] [address] 84344 Physician Commanding Officer Garage Dermatology 12/31/21 Shanna Vang PA-C [address] [place] [address] Assigned Cancer Care Provider 01/10/22 Fransisco Eddy MD [address] [place] [address] 88 [place] [address] Assigned Rheumatology Provider 05/09/22 [place] [address] [place] [address] Assigned Pain Medication Provider 06/29/22 09/04/22 [place] [address] [place] [address] Assigned PCP 08/15/22 08/28/22 Katrin Orellana PA-C [address] [place] [address] [phone] Assigned Surgical Provider 08/15/22 02/10/24 Cristina Hsieh [facility] [address] [place] [address] LISBETH HERNANDEZ [address]59[address] Pharmacist Pharmacist 09/07/22 Alfreda Ray PA-C [address] [place] [address] 606682 Assigned Pain Medication Provider 09/05/22 09/10/23 Alfreda Ray PA-C [address] [place] [address] 356182 Assigned PCP 08/29/22 Cristina Hsieh, [facility] 1600 [facility] [address] [place] [address] Assigned MTM Pharmacist 09/26/22 Dakota Tatum MD [address] [place] [address] 685335 Cardiovascular Disease 03/25/23 Dakota Tatum MD [address] [place] [address] 486475 Assigned Heart and Vascular Provider 05/01/23 [place] [address] CELE GAST[address]UM, [facility] 300 [place] [address] Assigned Musculoskeletal Provider 04/12/24 documented as of this encounter
--- OUTSIDE RECORDS SUMMARY | 2024-06-23 00:22 | XMS_ITS | Encounter Summary ---
Author Organization [place] Address [address] [place] [address] 28765 Care Team Providers Care Elevator Repairer Name Role Phone Esperanza Gatica MD Primary Care Provider + Esperanza Gatica MD Unavailable + Esperanza Gatica MD Unavailable + Jesús Orourke MD Unavailable Alfreda RayC Primary Care Provider + Alfreda Ray-C Unavailable +260 Katrin Orellana PA-C Unavailable +1-81 Shanna Vang PA-C Unavailable +[phone] Fransisco Eddy MD Unavailable +[phone] Esperanza Gatica MD Unavailable + Esperanza Gatica MD Unavailable + Katrin OrellanaC Unavailable +1-11 Cristina Hsieh [facility] Unavailable +[phone] Alfreda Ray PA-C Unavailable +2600 Alfreda Ray PA-C Unavailable +260 Cristina Hsieh [facility] Unavailable +[phone] Dakota Tatum MD Unavailable +16422 Dakota Tatum MD Unavailable + Cynthia, Srinivas Unavailable [phone] Encounter Details Date Type Department Care Team (Late st Contact Info) Description 07/04/2020 MyC Medical Advice [address] [phone] [place] [address] [place] [address] Social History Tobacco Use Types Packs/Day Years [...] Sex Assigned at Female 08/17/2018 7:56 AM BLENDING MACHINE OPERATOR Legal Sex Female 4:24 AM BLENDING MACHINE OPERATOR Gender Identity Female 08/17/2018 7:56 AM BLENDING MACHINE OPERATOR Sexual Orientation Straight 08/17/2018 7: 56 AM BLENDING MACHINE OPERATOR documented as of this encounter Plan of Treatment Upcoming Encounters Date Type Department Care Team (Late st Contact Info) Description 09/07/2024 10:00 AM CDT Office Visit [facility] [address] [phone] Fransisco Eddy MD [address] [place] [address] 315555 03/29/2025 3:40 PM CDT Office Visit [address] [phone] Alfreda Ray PA-C [address] [place] [address] [phone] documented as of this encounter Visit Diagnoses Not on filedocumented in this encounter Additional Health Concerns Infection Onset Date Last Indicated Resolved Time Rule Out COVID-19 05/08/2021 05/08/2021 05/09/2021 9:08 PM BLENDING MACHINE OPERATOR Assessment Noted Time PHQ-9 Depression Total Score: 1 08/20/19 19 1:44 PM BLENDING MACHINE OPERATOR documented as of this encounter Care Teams Elevator Repairer Relationship Specialty Start Date End Date Esperanza Gatica MD PCP - General Family Practice 10/13/11 12/29/21 Alfreda Ray PA-C [address] [place] [address] 80022 PCP - General Family Medicine 12/30/21 [place] [address] [place] [address] Assigned PCP 05/26/20 09/28/20 [place] [address] [place] [address] Assigned PCP 09/29/20 07/31/22 Jesú[place] [address] [address] Assigned Musculoskeletal Provider 10/20/20 04/17/22 Alfreda Ray PA-C [address] [place] [address] 54471 Referring Physician Family Medicine 12/31/21 Katrin Orellana PA-C [address] [place] [address] 52140 Physician Cooker Process Cheese Dermatology 12/31/21 Shanna Vang PA-C [address] [place] [address] 16705 Assigned Cancer Care Provider 01/10/22 Fransisco Eddy MD [address] [place] [address] 25582 Assigned Rheumatology Provider 05/09/22 [place] [address] [place] [address] Assigned Pain Medication Provider 06/29/22 09/04/22 [place] [address] [place] [address] Assigned PCP 08/15/22 08/28/22 Katrin Orellana PA-C [address] [place] [address] 90606 Assigned Surgical Provider 08/15/22 02/10/24 Cristina Hsieh, [facility] [address] [place] [address] [place] [address] Pharmacist Pharmacist 09/07/22 Alfreda Ray PA-C [address] [place] [address] 56283 Assigned Pain Medication Provider 09/05/22 09/10/23 Alfreda Ray PA-C [address] [place] [address] 42071 Assigned PCP 08/29/22 Cristina Hsieh, [facility] [address] [address] Assigned MTM Pharmacist 09/26/22 Dakota Tatum MD [address] [place] [address] 34048 Cardiovascular Disease 03/25/23 Dakota Tatum MD [address] [place] [address] 62764 Assigned Heart and Vascular Provider 05/01/23 [place] [address] [address] GAST[address]UM, [address] [address] Assigned Musculoskeletal Provider 04/12/24 documented as of this encounter
--- OUTSIDE RECORDS SUMMARY | 2024-06-23 00:22 | XMS_ITS | Encounter Summary ---
Author Organization [facility] Address [address] [place] [address] Care Team Providers Care Distillery Worker Name Role Phone Esperanza Gatica MD Primary Care Provider + Esperanza Gatica MD Unavailable + Jesús Orourke MD Unavailable Alfreda Ray-C Primary Care Provider + Alfreda RayC Unavailable +260 Katrin Orellana PA-C Unavailable +[phone] Shanna Vang PA-C Unavailable +[phone] Fransisco Eddy MD Unavailable +[phone] Esperanza Gatica MD Unavailable + Esperanza Gatica MD Unavailable + Katrin OrellanaC Unavailable +[phone] Cristina Hsieh [facility] Unavailable +[phone] Alfreda Ray PA-C Unavailable +2600 Alfreda Ray PA-C Unavailable +2600 Cristina Hsieh [facility] Unavailable +[phone] Dakota Tatum MD Unavailable Dakota Tatum MD Unavailable +[phone] Srinivas Marie Unavailable +[phone] Encounter Details Date Type Department Care Team (Late st Contact Info) Description 11/28/2020 MyC Medical Advice [facility] [place] [id number] [place] [address] [address] [place] [address] [place] [address] [place] [address] Social History Tobacco Use Types Packs/Day Years [...] Sex Assigned at Female 08/17/2018 7:56 AM WAREHOUSE TRAINER Legal Sex Female 4:24 AM WAREHOUSE TRAINER Gender Identity Female 08/17/2018 7:56 AM WAREHOUSE TRAINER Sexual Orientation Straight 08/17/2018 7: 56 AM WAREHOUSE TRAINER COVID-19 Exposure Response Date Recorded In the last month, have you been in contact with someone who was confirmed or suspected to have Coronavirus / COVID-19? No / Unsure 11/12/2020 1:17 PM CDT documented as of this encounter Plan of Treatment Upcoming Encounters Date Type Department Care Team (Late st Contact Info) Description 09/07/2024 10:00 AM CDT Office Visit [facility] [place] [address] [place] [address] 200 [place] [address] Fransisco Eddy MD [address] [place] [address] 03/29/2025 3:40 PM CDT Office Visit [address] [phone] Alfreda Ray PA-C [address] [place] [address] documented as of this encounter Visit Diagnoses Not on filedocumented in this encounter Additional Health Concerns Infection Onset Date Last Indicated Resolved Time Rule Out COVID-19 05/08/2021 05/08/2021 05/09/2021 9:08 PM WAREHOUSE TRAINER Assessment Noted Time PHQ-9 Depression Total Score: 0 08/31/19 11:22 AM WAREHOUSE TRAINER documented as of this encounter Care Teams Distillery Worker Relationship Specialty Start Date End Date Esperanza Gatica MD PCP - General Family Practice 10/13/11 12/29/21 Alfreda Ray PA-C [address] [place] [address]758 PCP - General Family Medicine 12/30/21 [place] [address] [facility] [place] [address] Assigned PCP 09/29/20 07/31/22 [place] [address] [place] [address] Assigned Musculoskeletal Provider 10/20/20 04/17/22 Alfreda Ray PA-C [address] [place] [address]689 Referring Physician Family Medicine 12/31/21 Katrin Orellana PA-C [address] [place] [address] Physician Coil Assembler Dermatology 12/31/21 Shanna Vang PA-C [address] [place] [address] Assigned Cancer Care Provider 01/10/22 Fransisco Eddy MD [address] [place] [address] 88 [place] [address] Assigned Rheumatology Provider 05/09/22 [place] [address] [place] [address] Assigned Pain Medication Provider 06/29/22 09/04/22 [place] [address] [place] [address] Assigned PCP 08/15/22 08/28/22 Katrin Orellana PA-C [address] [place] [address] 867275 Assigned Surgical Provider 08/15/22 02/10/24 Cristina Hsieh [facility] [address] [place] [address] LISBETH HERNANDEZ [address] Pharmacist Pharmacist 09/07/22 Alfreda Ray PA-C [address] [place] [address] 45683 Assigned Pain Medication Provider 09/05/22 09/10/23 Alfreda Ray PA-C [address] [place] [address] 63698 Assigned PCP 08/29/22 Cristina Hsieh, [facility] [address] [facility] 101 [place] [address] Assigned MTM Pharmacist 09/26/22 Dakota Tatum MD [address] [place] [address] 170125 Cardiovascular Disease 03/25/23 Dakota Tatum MD [address] [place] [address] 178805 Assigned Heart and Vascular Provider 05/01/23 [place] [address] [facility] [facility], [facility] [address] [place] [address] Assigned Musculoskeletal Provider 04/12/24 documented as of this encounter
--- OUTSIDE RECORDS SUMMARY | 2024-06-23 00:22 | XMS_ITS | Encounter Summary ---
Author Organization [facility] Address [address] [place] [address]349 Care Team Providers Care Smoking Pipe Driller And Threader Name Role Phone Esperanza Gatica MD Primary Care Provider + Esperanza Gatica MD Unavailable + Jesús Orourke MD Unavailable Alfreda Ray-C Primary Care Provider + Alfreda RayC Unavailable +260 Katrin Orellana PA-C Unavailable +[phone] Shanna Vang PA-C Unavailable +[phone] Fransisco Eddy MD Unavailable +[phone] Esperanza Gatica MD Unavailable + Esperanza Gatica MD Unavailable + Katrin OrellanaC Unavailable +[phone] Cristina Hsieh [facility] Unavailable +[phone] Alfreda Ray PA-C Unavailable +2600 Alfreda Ray PA-C Unavailable +2600 Cristina Hsieh [facility] Unavailable +[phone] Dakota Tatum MD Unavailable Dakota Tatum MD Unavailable + [phone] Srinivas Marie DO Unavailable [phone] Reason for Visit * Reason Onset Date Comments Refill Request 10/27/2020 Encounter Details Date Type Department Care Team ([facility] Contact Info) Description 10/27/2020 MyC Refill [address], [address] [place] [address] [place] [address] [place] [address] Refill Request Social History Tobacco [...] Sex Assigned at Female 08/17/2018 7:56 AM STUDENT SERVICES REP Legal Sex Female 4:24 AM STUDENT SERVICES REP Gender Identity Female 08/17/2018 7:56 AM STUDENT SERVICES REP Sexual Orientation Straight 08/17/2018 7: 56 AM STUDENT SERVICES REP COVID-19 Exposure Response Date Recorded In the last month, have you been in contact with someone who was confirmed or suspected to have Coronavirus / COVID-19? No / Unsure 10/29/2020 2:27 PM CDT documented as of this encounter Plan of Treatment Upcoming Encounters Date Type Department Care Team (Late Contact Info) Description 09/07/2024 10:00 AM CDT Office Visit [facility] [address] [place] [address] Fransisco Eddy MD [address] [place] [address] 03/29/2025 3:40 PM CDT Office Visit [address] [place] [address] Alfreda Ray PA-C [address] [place] [address] documented as of this encounter Visit Diagnoses Diagnosis Primary osteoarthritis involving multiple joints documented in this encounter Additional Health Concerns Infection Onset Date Last Indicated Resolved Time Rule Out COVID-19 05/08/2021 05/08/2021 05/09/2021 9:08 PM STUDENT SERVICES REP Assessment Noted Time PHQ-9 Depression Total Score: 0 08/31/19 11:22 AM STUDENT SERVICES REP documented as of this encounter Care Teams Smoking Pipe Driller And Threader Relationship Specialty Start Date End Date Esperanza Gatica MD PCP - General Family Practice 10/13/11 12/29/21 Alfreda Ray PA-C [address] [place] [address]72 PCP - General Family Medicine 12/30/21 [place] [address] [facility] [place] [address] Assigned PCP 09/29/20 07/31/22 Jesú[place] [address] [place] [address] Assigned Musculoskeletal Provider 10/20/20 04/17/22 Alfreda Ray PA-C [address] [place] [address] Referring Physician Family Medicine 12/31/21 Katrin Orellana PA-C [address] [place] [address]656 Physician Fire Chief Deputy Dermatology 12/31/21 Shanna Vang PA-C [address] [address] Assigned Cancer Care Provider 01/10/22 Fransisco Eddy MD [address] [place] [address] 60488 Assigned Rheumatology Provider 05/09/22 [place] [address] [place] [address] Assigned Pain Medication Provider 06/29/22 09/04/22 [place] [address] [place] [address] Assigned PCP 08/15/22 08/28/22 Katrin Orellana PA-C [address] [place] [address] 38778 Assigned Surgical Provider 08/15/22 02/10/24 Cristina Hsieh [facility] [address] [place] [address] [place] [address] Pharmacist Pharmacist 09/07/22 Alfreda Ray PA-C [address] [place] [address]108 Assigned Pain Medication Provider 09/05/22 09/10/23 Alfreda Ray PA-C [address] [place] [address] 82167 Assigned PCP 08/29/22 Cristina Hsieh, [facility] [address] [address] Assigned MTM Pharmacist 09/26/22 Dakota Tatum MD [address] [place] [address] 07853 Cardiovascular Disease 03/25/23 Dakota Tatum MD [address] [place] [address] 43733 Assigned Heart and Vascular Provider 05/01/23 [place] [address] [address], [address] [address] Assigned Musculoskeletal Provider 04/12/24 documented as of this encounter
--- OUTSIDE RECORDS SUMMARY | 2024-06-23 00:22 | XMS_ITS | Encounter Summary ---
Author Organization [facility] Address [address] [place] [address] Care Team Providers Care Rn Occupational Name Role Phone Esperanza Gatica MD Primary Care Provider + Esperanza Gatica MD Unavailable + Jesús Orourke MD Unavailable Alfreda Ray-C Primary Care Provider + Alfreda RayC Unavailable +260 Katrin Orellana PA-C Unavailable +[phone] Shanna Vang PA-C Unavailable +[phone] Fransisco Eddy MD Unavailable +[phone] Esperanza Gatica MD Unavailable + Esperanza Gatica MD Unavailable + Katrin OrellanaC Unavailable +[phone] Cristina Hsieh [facility] Unavailable +[phone] Alfreda Ray PA-C Unavailable +2600 Alfreda Ray PA-C Unavailable +2600 Cristina Hsieh [facility] Unavailable +[phone] Dakota Tatum MD Unavailable Dakota Tatum MD Unavailable +[phone] Srinivas Marie DO Unavailable Reason for Visit * Reason Comments Medication Refill Encounter Details Date Type Department Care Team (Late st Contact Info) Description 11/06/2020 Refill [facility] [address] [place] [address] [place] [address] [place] [address] Medication Refill Social History Tobacco [...] Sex Assigned at Female 08/17/2018 7:56 AM FLAKE MILLER HELPER Legal Sex Female 4:24 AM FLAKE MILLER HELPER Gender Identity Female 08/17/2018 7:56 AM FLAKE MILLER HELPER Sexual Orientation Straight 08/17/2018 7: 56 AM FLAKE MILLER HELPER COVID-19 Exposure Response Date Recorded In the last month, have you been in contact with someone who was confirmed or suspected to have Coronavirus / COVID-19? No / Unsure 11/05/2020 1:48 PM CDT documented as of this encounter Miscellaneous Notes * Telephone Encounter - Caitlin Waterman RN - 11/07/2020 10:23 AM CDT Prescription approved per [facility] protocol. Caitlin Waterman RN on 11/07/2020 at 10:23 AM documented in this encounter Plan of Treatment Upcoming Encounters Date Type Department Care Team (Late st Contact Info) Description 09/07/2024 10:00 AM CDT Office Visit [address] [address] Fransisco Eddy MD [address] [place] [address] 03/29/2025 3:40 PM CDT Office Visit [address] [phone] Alfreda Ray PA-C [address] [place] [address] [phone] documented as of this encounter Visit Diagnoses Diagnosis HTN, goal below 140/90 Unspecified essential hypertension documented in this encounter Additional Health Concerns Infection Onset Date Last Indicated Resolved Time Rule Out COVID-19 05/08/2021 05/08/2021 05/09/2021 9:08 PM FLAKE MILLER HELPER Assessment Noted Time PHQ-9 Depression Total Score: 0 08/31/19 21 11:22 AM FLAKE MILLER HELPER documented as of this encounter Care Teams Rn Occupational Relationship Specialty Start Date End Date Esperanza Gatica MD PCP - General Family Practice 10/13/11 12/29/21 Alfreda Ray PA-C [address] [place] [address] 785472 PCP - General Family Medicine 12/30/21 [place] [address] [place] [address] Assigned PCP 09/29/20 07/31/22 [place] [address] [facility] [place]ETH [place] [address] Assigned Musculoskeletal Provider 10/20/20 04/17/22 Alfreda Ray PA-C [address] [place] [address] Referring Physician Family Medicine 12/31/21 Katrin Orellana PA-C [address] 389575 Physician Latin Dance Instructor Dermatology 12/31/21 Shanna Vang PA-C [address] [place] [address] [id number] Assigned Cancer Care Provider 01/10/22 Fransisco Eddy MD [address] [place] [address] 402115 Assigned Rheumatology Provider 05/09/22 [place] [address] [place] [address] Assigned Pain Medication Provider 06/29/22 09/04/22 [place] [address] [address] [place] [address] Assigned PCP 08/15/22 08/28/22 Katrin Orellana PA-C [address] [place] [address] 260315 Assigned Surgical Provider 08/15/22 02/10/24 Cristina Hsieh [facility] [address] [facility] LISBETH HERNANDEZ [address] Pharmacist Pharmacist 09/07/22 Alfreda Ray PA-C [address] [place] [address] Assigned Pain Medication Provider 09/05/22 09/10/23 Alfreda Ray PA-C [address] [place] [address] 58[address] Assigned PCP 08/29/22 Cristina Hsieh, [facility] [address] [address] Assigned MTM Pharmacist 09/26/22 Dakota Tatum MD [address] [place] [address] [phone] Cardiovascular Disease 03/25/23 Dakota Tatum MD [address] [place] [address] 901695 Assigned Heart and Vascular Provider 05/01/23 [place] [address] [facility], [address] [address] Assigned Musculoskeletal Provider 04/12/24 documented as of this encounter
--- OUTSIDE RECORDS SUMMARY | 2024-06-23 00:22 | XMS_ITS | Encounter Summary ---
Author Organization [facility] Address [address] [place] [address] Care Team Providers Care Power Supply Engineer Name Role Phone Esperanza Gatica MD Primary Care Provider + Esperanza Gatica MD Unavailable + Esperanza Gatica MD Unavailable + Jesús Orourke MD Unavailable Alfreda RayC Primary Care Provider + Alfreda Ray-C Unavailable +260 Katrin Orellana PA-C Unavailable +[phone] Shanna Vang PA-C Unavailable +[phone] Fransisco Eddy MD Unavailable +[phone] Esperanza Gatica MD Unavailable + Esperanza Gatica MD Unavailable + Katrin OrellanaC Unavailable +[phone] Cristina Hsieh [facility] Unavailable +[phone] Alfreda Ray PA-C Unavailable +2600 Alfreda Ray PA-C Unavailable +260 Cristina Hsieh [facility] Unavailable +[phone] Dakota Tatum MD Unavailable +1 Dakota Tatum MD Unavailable + Cynthia, Srinivas Unavailable +[phone] Encounter Details Date Type Department Care Team (Late st Contact Info) Description 08/18/2020 MyC Medical Advice [facility] [address] [place] [address] [place] [address] [place] [address] Primary osteoarthritis involving multiple joints [...] Sex Assigned at Female 08/17/2018 7:56 AM LENS SILVERER Legal Sex Female 4:24 AM LENS SILVERER Gender Identity Female 08/17/2018 7:56 AM LENS SILVERER Sexual Orientation Straight 08/17/2018 7: 56 AM LENS SILVERER documented as of this encounter Plan of Treatment Upcoming Encounters Date Type Department Care Team (Late st Contact Info) Description 09/07/2024 10:00 AM CDT Office Visit [facility] [address] [phone] Fransisco Eddy MD [address] [place] [address] 371305 03/29/2025 3:40 PM CDT Office Visit [address] [phone] Alfreda Ray PA-C [address] [place] [address] [phone] documented as of this encounter Visit Diagnoses Diagnosis Primary osteoarthritis involving multiple joints documented in this encounter Additional Health Concerns Infection Onset Date Last Indicated Resolved Time Rule Out COVID-19 05/08/2021 05/08/2021 05/09/2021 9:08 PM LENS SILVERER Assessment Noted Time PHQ-9 Depression Total Score: 1 08/20/19 19 1:44 PM LENS SILVERER documented as of this encounter Care Teams Power Supply Engineer Relationship Specialty Start Date End Date Esperanza Gatica MD PCP - General Family Practice 10/13/11 12/29/21 Alfreda Ray PA-C [address] [place] [address] PCP - General Family Medicine 12/30/21 [place] [address] [place] [address] Assigned PCP 05/26/20 09/28/20 [place] [address] [place] [address] Assigned PCP 09/29/20 07/31/22 Jesú[place] [address] [place] [address] Assigned Musculoskeletal Provider 10/20/20 04/17/22 Alfreda Ray PA-C [address] [place] [address] 62593 Referring Physician Family Medicine 12/31/21 Katrin Orellana PA-C [address] [place] [address] Physician Rn School Dermatology 12/31/21 Shanna Vang PA-C [address] [address] Assigned Cancer Care Provider 01/10/22 Fransisco Eddy MD [address] [place] [address] Assigned Rheumatology Provider 05/09/22 [place] [address] [place] [address] Assigned Pain Medication Provider 06/29/22 09/04/22 [place] [address] [place] [address] Assigned PCP 08/15/22 08/28/22 Katrin Orellana PA-C [address] [place] [address]61 Assigned Surgical Provider 08/15/22 02/10/24 Cristina Hsieh, [facility] [address] [place] [address] [place] [address] Pharmacist Pharmacist 09/07/22 Alfreda Ray PA-C [address] [place] [address]366 Assigned Pain Medication Provider 09/05/22 09/10/23 Alfreda Ray PA-C 4151 [place] [address] Assigned PCP 08/29/22 Cristina Hsieh, [facility] 1600 [facility] 101 [place] [address] Assigned MTM Pharmacist 09/26/22 Dakota Tatum MD [address] [place] [address]39 Cardiovascular Disease 03/25/23 Dakota Tatum MD [address] [place] [address] 6[address] Assigned Heart and Vascular Provider 05/01/23 [place] [address] [place] , [facility] 300 [place] [address] Assigned Musculoskeletal Provider 04/12/24 documented as of this encounter
--- OUTSIDE RECORDS SUMMARY | 2024-06-23 00:22 | XMS_ITS | Encounter Summary ---
Author Organization [facility] Address [address] [place] [address] Care Team Providers Care Jordan Man Name Role Phone Esperanza Gatica MD Primary Care Provider + Esperanza Gatica MD Unavailable + Jesús Orourke MD Unavailable Alfreda Ray-C Primary Care Provider + Alfreda RayC Unavailable +260 Katrin Orellana PA-C Unavailable +1-05 Shanna Vagn PA-C Unavailable +[phone] Fransisco Eddy MD Unavailable +[phone] Esperanza Gatica MD Unavailable + Esperanza Gatica MD Unavailable + Katrin OrellanaC Unavailable +[phone] Cristina Hsieh [facility] Unavailable +[phone] Alfreda Ray PA-C Unavailable +2600 Alfreda Ray PA-C Unavailable +2600 Cristina Hsieh [facility] Unavailable +[phone] Daokta Tatum MD Unavailable Dakota Tatum MD Unavailable +[phone] Srinivas Marie DO Unavailable [phone] Encounter Details Date Type Department Care Team (Late st Contact Info) Description 10/23/2020 MyC Medical Advice [facility] [place] Rose [address] [facility] [address] [place], [place] 196[address] [place] [address] [facility] [address] [place], [place] 714667 Social History Tobacco Use Types Packs/Day Years [...] Assigned at Female 08/17/2018 7:56 AM CERTIFIED BENCH JEWELER TECHNICIAN Legal Sex Female 4:24 AM CERTIFIED BENCH JEWELER TECHNICIAN Gender Identity Female 08/17/2018 7:56 AM CERTIFIED BENCH JEWELER TECHNICIAN Sexual Orientation Straight 08/17/2018 7: 56 AM CERTIFIED BENCH JEWELER TECHNICIAN COVID-19 Exposure Response Date Recorded In the last month, have you been in contact with someone who was confirmed or suspected to have Coronavirus / COVID-19? No / Unsure 10/16/2020 2:03 PM CDT documented as of this encounter Plan of Treatment Upcoming Encounters Date Type Department Care Team (Late st Contact Info) Description 09/07/2024 10:00 AM CDT Office Visit [facility] [address] [place] [address] Fransisco Eddy MD [address] [place] [address] 03/29/2025 3:40 PM CDT Office Visit [address] [address] Alfreda Ray PA-C [address] [place] [address] documented as of this encounter Visit Diagnoses Not on filedocumented in this encounter Additional Health Concerns Infection Onset Date Last Indicated Resolved Time Rule Out COVID-19 05/08/2021 05/08/2021 05/09/2021 9:08 PM CERTIFIED BENCH JEWELER TECHNICIAN Assessment Noted Time PHQ-9 Depression Total Score: 0 08/31/19 21 11:22 AM CERTIFIED BENCH JEWELER TECHNICIAN documented as of this encounter Care Teams Jordan Man Relationship Specialty Start Date End Date Esperanza Gatica MD PCP - General Family Practice 10/13/11 12/29/21 Alfreda Ray PA-C [address] [place] [address]08 PCP - General Family Medicine 12/30/21 [place] [address] [place] [address] Assigned PCP 09/29/20 07/31/22 Jesú[place] [address] [place] [address] Assigned Musculoskeletal Provider 10/20/20 04/17/22 Alfreda Ray PA-C [address] [place] [address] 104462 Referring Physician Family Medicine 12/31/21 Katrin Orellana PA-C [address] [place] [address] Physician Senior Consultant Dermatology 12/31/21 Shanna Vang PA-C [address] [place] [address] Assigned Cancer Care Provider 01/10/22 Fransisco Eddy MD [address] [place] [address] [address] [place] [address] Assigned Rheumatology Provider 05/09/22 [place] [address] [place] [address] Assigned Pain Medication Provider 06/29/22 09/04/22 [place] [address] [place] [address] Assigned PCP 08/15/22 08/28/22 Katrin Orellana PA-C [address] [place] [address] 035335 Assigned Surgical Provider 08/15/22 02/10/24 Cristina Hsieh [facility] [address] [place] [address] LISBETH HERNANDEZ [address] Pharmacist Pharmacist 09/07/22 Alfreda Ray PA-C [address] [place] [address] Assigned Pain Medication Provider 09/05/22 09/10/23 Alfreda Ray PA-C [address] [place] [address] 612442 Assigned PCP 08/29/22 Cristina Hsieh, [facility] 1600 [facility] 101 [place] [address] Assigned MTM Pharmacist 09/26/22 Dakota Tatum MD [address] [place] [address] [phone] Cardiovascular Disease 03/25/23 Dakota Tatum MD [address] [place] [address] [phone] Assigned Heart and Vascular Provider 05/01/23 [place] [address] [address], [facility] [address] [place] [address] Assigned Musculoskeletal Provider 04/12/24 documented as of this encounter
--- OUTSIDE RECORDS SUMMARY | 2024-06-23 00:22 | XMS_ITS | Encounter Summary ---
Author Organization [place] Address [address] [place] [address] 83854 Care Team Providers Care Tipple Boss Name Role Phone Esperanza Gatica MD Primary Care Provider + Esperanza Gatica MD Unavailable + Jesús Orourke MD Unavailable Alfreda Ray-C Primary Care Provider + Alfreda RayC Unavailable +260 Katrin Orellana PA-C Unavailable +1-01 Shanna Vang PA-C Unavailable +[phone] Fransisco Eddy MD Unavailable +[phone] Esperanza Gatica MD Unavailable + Esperanza Gatica MD Unavailable + Katrin OrellanaC Unavailable +[phone] Cristina Hsieh [facility] Unavailable +[phone] Alfreda Ray PA-C Unavailable +2600 Alfreda Ray PA-C Unavailable +2600 Cristina Hsieh [facility] Unavailable +[phone] Dakota Tatum MD Unavailable Dakota Tatum MD Unavailable + [phone] Srinivas Marie DO Unavailable [phone] Reason for Visit * Reason Onset Date Comments MyChart Communication 11/26/2020 Encounter Details Date Type Department Care Team (Late Contact Info) Description 11/26/2020 MyC Medical Advice [facility] Sports Medicine [facility] [id number] [place] [address] [address] [place] [address] Jesú[place] [address] [facility] [address] [place] [address] MyChart Communication Social History Tobacco Use Types [...] Sex Assigned at Female 08/17/2018 7:56 AM SIDE TRIMMER Legal Sex Female 4:24 AM SIDE TRIMMER Gender Identity Female 08/17/2018 7:56 AM SIDE TRIMMER Sexual Orientation Straight 08/17/2018 7: 56 AM SIDE TRIMMER COVID-19 Exposure Response Date Recorded In [...] Office Visit [facility] [address] [place] [address] Fransisco Eddy MD [address] [place] [address] 969045 03/29/2025 3:40 PM CDT Office [place] [address] [facility] [phone] Alfreda Ray PA-C [address] [place] [address] [phone] documented as of this encounter Visit Diagnoses Not on filedocumented in this encounter Additional Health Concerns Infection Onset Date Last Indicated Resolved Time Rule Out COVID-19 05/08/2021 05/08/2021 05/09/2021 9:08 PM SIDE TRIMMER Assessment Noted Time PHQ-9 Depression Total Score: 0 08/31/19 11:22 AM SIDE TRIMMER documented as of this encounter Care Teams Tipple Boss Relationship Specialty Start Date End Date Esperanza Gatica MD PCP - General Family Practice 10/13/11 12/29/21 Alfreda Ray PA-C [address] [place] [address] 51450 PCP - General Family Medicine 12/30/21 [place] [address] [facility] [place] [address] Assigned PCP 09/29/20 07/31/22 Jesú[place] [address] [place] [address] Assigned Musculoskeletal Provider 10/20/20 04/17/22 Alfreda Ray PA-C [address] [place] [address] 34839 Referring Physician Family Medicine 12/31/21 Katrin Orellana PA-C [address] [place] [address] 89966 Physician Chairman Ceo Dermatology 12/31/21 Shanna Vang PA-C [address] [address] Assigned Cancer Care Provider 01/10/22 Fransisco Eddy MD [address] [place] [address] 85759 Assigned Rheumatology Provider 05/09/22 [place] [address] [place] [address] Assigned Pain Medication Provider 06/29/22 09/04/22 [place] [address] [place] [address] Assigned PCP 08/15/22 08/28/22 Katrin Orellana PA-C [address] [place] [address] 52436 Assigned Surgical Provider 08/15/22 02/10/24 Cristina Hsieh [facility] [address] [place] [address] [place] [address] Pharmacist Pharmacist 09/07/22 Alfreda Ray PA-C [address] [place] [address] 190002 Assigned Pain Medication Provider 09/05/22 09/10/23 Alfreda Ray PA-C [address] [place] [address] 54946 Assigned PCP 08/29/22 Cristina Hsieh, [facility] [address] [facility] 101 [place] [address] Assigned MTM Pharmacist 09/26/22 Dakota Tatum MD [address] [place] [address]2004 Cardiovascular Disease 03/25/23 Dakota Tatum MD [address] [place] [address] 62980 Assigned Heart and Vascular Provider 05/01/23 [place] [address] [facility] [facility], [facility] [address] [place] [address] Assigned Musculoskeletal Provider 04/12/24 documented as of this encounter
--- OUTSIDE RECORDS SUMMARY | 2024-06-23 00:22 | XMS_ITS | Encounter Summary ---
Author Organization [place] Address [address] [place] [address]505 Care Team Providers Care Dry Wall Installer Name Role Phone Esperanza Gatica MD Primary Care Provider + Esperanza Gatica MD Unavailable + Jesús Orourke MD Unavailable Alfreda Ray-C Primary Care Provider + Alfreda RayC Unavailable +260 Katrin Orellana PA-C Unavailable +[phone] Shanna Vang PA-C Unavailable +[phone] Fransisco Eddy MD Unavailable +[phone] Esperanza Gatica MD Unavailable + Esperanza Gatica MD Unavailable + Katrin OrellanaC Unavailable +[phone] Cristina Hsieh [facility] Unavailable +[phone] Alfreda Ray PA-C Unavailable +2600 Alfreda Ray PA-C Unavailable +2600 Cristina Hsieh [facility] Unavailable +[phone] Dakota Tatum MD Unavailable Dakota Tatum MD Unavailable +[phone] Srinivas Marie Unavailable [phone] Encounter Details Date Type Department Care Team (Late st Contact Info) Description 10/11/2020 Documentation Only [facility] [address] [place] [phone] [place] [address] [place] [address] Social History Tobacco Use Types [...] Sex Assigned at Female 08/17/2018 7:56 AM RETAIL DEPARTMENT SUPERVISOR Legal Sex Female 4:24 AM RETAIL DEPARTMENT SUPERVISOR Gender Identity Female 08/17/2018 7:56 AM RETAIL DEPARTMENT SUPERVISOR Sexual Orientation Straight 08/17/2018 7: 56 AM RETAIL DEPARTMENT SUPERVISOR COVID-19 Exposure Response Date Recorded In [...] CDT Office Visit [facility] [address] 200 [place] [address] Fransisco Eddy MD [address] [place] [address] 03/29/2025 3:40 PM CDT Office Visit [address] [phone] Alfreda Ray PA-C [address] [place] [address] documented as of this encounter Visit Diagnoses Not on filedocumented in this encounter Additional Health Concerns Infection Onset Date Last Indicated Resolved Time Rule Out COVID-19 05/08/2021 05/08/2021 05/09/2021 9:08 PM RETAIL DEPARTMENT SUPERVISOR Assessment Noted Time PHQ-9 Depression Total Score: 0 08/31/19 21 11:22 AM RETAIL DEPARTMENT SUPERVISOR documented as of this encounter Care Teams Dry Wall Installer Relationship Specialty Start Date End Date Esperanza Gatica MD PCP - General Family Practice 10/13/11 12/29/21 Alfreda Ray PA-C [address] [place] [address] 14658 PCP - General Family Medicine 12/30/21 [place] [address] [place] [address] Assigned PCP 09/29/20 07/31/22 Jesú[place] [address] [place] [address] Assigned Musculoskeletal Provider 10/20/20 04/17/22 Alfreda Ray PA-C [address] [place] [address] 943612 Referring Physician Family Medicine 12/31/21 Katrin Orellana PA-C [address] [place] [address] 15936 Physician Apple Turner Dermatology 12/31/21 Shanna Vang PA-C [address] [place] [address] Assigned Cancer Care Provider 01/10/22 Fransisco Eddy MD [address] [place] [address] 88 [place] [address] Assigned Rheumatology Provider 05/09/22 [place] [address] [place] [address] Assigned Pain Medication Provider 06/29/22 09/04/22 [place] [address] [place] [address] Assigned PCP 08/15/22 08/28/22 Katrin Orellana PA-C [address] [place] [address] 094685 Assigned Surgical Provider 08/15/22 02/10/24 Cristina Hsieh [facility] [address] [place] [address] LISBETH HERNANDEZ [address] Pharmacist Pharmacist 09/07/22 Alfreda Ray PA-C [address] [place] [address] 70352 Assigned Pain Medication Provider 09/05/22 09/10/23 Alfreda Ray PA-C [address] [place] [address] 407642 Assigned PCP 08/29/22 Cristina Hsieh, [facility] 1600 [facility] 101 [place] [address] Assigned MTM Pharmacist 09/26/22 Dakota Tatum MD [address] [place] [address] 544735 Cardiovascular Disease 03/25/23 Dakota Tatum MD [address] [place] [address] 941575 Assigned Heart and Vascular Provider 05/01/23 [place] [address] [facility] [facility], [facility] 300 [place] [address] Assigned Musculoskeletal Provider 04/12/24 documented as of this encounter
--- OUTSIDE RECORDS SUMMARY | 2024-06-23 00:22 | XMS_ITS | Encounter Summary ---
Author Organization [place] Address [address] [place] [address] 59[address] Care Team Providers Care Rn Lactation Name Role Phone Esperanza Gatica MD Primary Care Provider + Esperanza Gatica MD Unavailable + Jesús Orourke MD Unavailable Alfreda Ray-C Primary Care Provider + Alfreda RayC Unavailable +260 Katrin Orellana PA-C Unavailable +[phone] Shanna Vang PA-C Unavailable +[phone] Fransisco Eddy MD Unavailable +[phone] Esperanza Gatica MD Unavailable + Esperanza Gatica MD Unavailable + Katrin OrellanaC Unavailable +[phone] Cristina Hsieh [facility] Unavailable +[phone] Alfreda Ray PA-C Unavailable +2600 Alfreda Ray PA-C Unavailable +2600 Cristina Hsieh [facility] Unavailable +[phone] Dakota Tatum MD Unavailable Dakota Tatum MD Unavailable +[phone] Srinivas Marie DO Unavailable [phone] Encounter Details Date Type Department Care Team (Late st Contact Info) Description 10/22/2020 MyC Medical Advice [facility] [place] [address] [facility] [address] [place], [place] 398[address] Jesú[place] [address] [facility] [address] [place], [place] 397467 Social History Tobacco Use Types Packs/Day Years [...] Sex Assigned at Female 08/17/2018 7:56 AM PHOTOSTAT OPERATOR HELPER Legal Sex Female 4:24 AM PHOTOSTAT OPERATOR HELPER Gender Identity Female 08/17/2018 7:56 AM PHOTOSTAT OPERATOR HELPER Sexual Orientation Straight 08/17/2018 7: 56 AM PHOTOSTAT OPERATOR HELPER COVID-19 Exposure Response Date Recorded In [...] Office Visit [facility] [address] [place] [address] Fransisco Eddy MD [address] [place] [address] 03/29/2025 3:40 PM CDT Office Visit [address] [address] Alfreda Ray PA-C [address] [place] [address] 20846 documented as of this encounter Visit Diagnoses Not on filedocumented in this encounter Additional Health Concerns Infection Onset Date Last Indicated Resolved Time Rule Out COVID-19 05/08/2021 05/08/2021 05/09/2021 9:08 PM PHOTOSTAT OPERATOR HELPER Assessment Noted Time PHQ-9 Depression Total Score: 0 08/31/19 21 11:22 AM PHOTOSTAT OPERATOR HELPER documented as of this encounter Care Teams Rn Lactation Relationship Specialty Start Date End Date Esperanza Gatica MD PCP - General Family Practice 10/13/11 12/29/21 Alfreda Ray PA-C [address] [place] [address] 28192 PCP - General Family Medicine 12/30/21 [place] [address] [place] [address] Assigned PCP 09/29/20 07/31/22 Jesú[place] [address] [place] [address] Assigned Musculoskeletal Provider 10/20/20 04/17/22 Alfreda Ray PA-C [address] [place] [address] 993132 Referring Physician Family Medicine 12/31/21 Katrin Orellana PA-C [address] [place] [address] 89874 Physician Hardwood Floor Layer Dermatology 12/31/21 Shanna Vang PA-C [address] [place] [address] Assigned Cancer Care Provider 01/10/22 Fransisco Eddy MD [address] [place] [address] 88 [place] [address] Assigned Rheumatology Provider 05/09/22 [place] [address] [place] [address] Assigned Pain Medication Provider 06/29/22 09/04/22 [place] [address] [place] [address] Assigned PCP 08/15/22 08/28/22 Katrin Orellana PA-C [address] [place] [address] 648545 Assigned Surgical Provider 08/15/22 02/10/24 Cristina Hsieh [facility] [address] [place] [address] LISBETH HERNANDEZ [address] Pharmacist Pharmacist 09/07/22 Alfreda Ray PA-C [address] [place] [address] 39104 Assigned Pain Medication Provider 09/05/22 09/10/23 Alfreda Ray PA-C [address] [place] [address] 594252 Assigned PCP 08/29/22 Cristina Hsieh, [facility] [address] [facility] 101 [place] [address] Assigned MTM Pharmacist 09/26/22 Dakota Tatum MD [address] [place] [address] 772445 Cardiovascular Disease 03/25/23 Dakota Tatum MD [address] [place] [address] 868565 Assigned Heart and Vascular Provider 05/01/23 [place] [address] [facility], [facility] 300 [place] [address] Assigned Musculoskeletal Provider 04/12/24 documented as of this encounter
--- OUTSIDE RECORDS SUMMARY | 2024-06-23 00:23 | XMS_ITS | Encounter Summary ---
Author Organization [place] Address [address] [place] [address] Care Team Providers Care Field Artillery Crewmember Name Role Phone Esperanza Gatica MD Primary Care Provider + Esperanza Gatica MD Unavailable + Esperanza Gatica MD Unavailable + Esperanza Gatica MD Unavailable + Esperanza Gatica MD Unavailable + Esperanza Gatica MD Unavailable + Jesús Orourke MD Unavailable Alfreda Ray-C Primary Care Provider + Alfreda Ray-C Unavailable + [phone] Katrin OrellanaC Unavailable +1-11 Shanna Vang-C Unavailable +[phone] Fransisco Eddy MD Unavailable +[phone] Esperanza Gatica MD Unavailable + Esperanza Gatica MD Unavailable + Katrin OrellanaC Unavailable +[phone] Cristina Hsieh [facility] Unavailable +60 Alfreda Ray PA-C Unavailable Cory Alfreda Liu PA-C Unavailable Cristina Hsieh Martin [facility] Unavailable +[phone] DeeptiDakota MD Unavailable +[phone] LaDakota guerra MD Unavailable +[phone] Srinivas Marie Unavailable [phone] Encounter Details Date Type Department Care Team (Late st Contact Info) Description 07/03/2019 MyC Medical Advice [address], [address] [place] [address] [place] [address] [place] [address] Social History Tobacco Use Types [...] Sex Assigned at Female 08/17/2018 7:56 AM PANTS CUTTER Legal Sex Female 4:24 AM PANTS CUTTER Gender Identity Female 08/17/2018 7:56 AM PANTS CUTTER Sexual Orientation Straight 08/17/2018 7: 56 AM PANTS CUTTER documented as of this encounter Plan of Treatment Upcoming Encounters Date Type Department Care Team (Late st Contact Info) Description 09/07/2024 10:00 AM CDT Office Visit [facility] [address] [place] [address] Fransisco Eddy MD [address] [place] [address] 03/29/2025 3:40 PM CDT Office Visit [facility] [address] [address] Alfreda Ray PA-C [address] [place] [address] 411492 documented as of this encounter Visit Diagnoses Not on filedocumented in this encounter Additional Health Concerns Infection Onset Date Last Indicated Resolved Time Rule Out COVID-19 05/08/2021 05/08/2021 05/09/2021 9:08 PM PANTS CUTTER Assessment Noted Time PHQ-9 Depression Total Score: 1 08/20/19 19 1:44 PM PANTS CUTTER documented as of this encounter Care Teams Field Artillery Crewmember Relationship Specialty Start Date End Date Esperanza Gatica MD PCP - General Family Practice 10/13/11 12/29/21 Alfreda Ray PA-C [address] [place] [address] 98279 PCP - General Family Medicine 12/30/21 [place] [address] [address] [address] Assigned PCP 12/05/17 09/30/19 [place] [address] [address] [address] Assigned PCP 10/01/19 03/02/20 [place] [address] [address] [address] Assigned PCP 03/03/20 05/25/20 [place] [address] [address] [address] Assigned PCP 05/26/20 09/28/20 [place] [address] [place] [address] Assigned PCP 09/29/20 07/31/22 [place] [address] [place] [address] [address] Assigned Musculoskeletal Provider 10/20/20 04/17/22 Alfreda Ray PA-C [address] [place] [address] 38703 Referring Physician Family Medicine 12/31/21 Katrin Orellana PA-C [address] [place] [address] 87684 Physician Brazing Machine Operator Helper Dermatology 12/31/21 Shanna Vang PA-C [address] [address] Assigned Cancer Care Provider 01/10/22 Fransisco Eddy MD [address] [place] [address] 04274 Assigned Rheumatology Provider 05/09/22 [place] [address] [place] [address] Assigned Pain Medication Provider 06/29/22 09/04/22 [place] [address] [place] [address] Assigned PCP 08/15/22 08/28/22 Katrin Orellana PA-C [address] [place] [address] 98 [place] [address] Assigned Surgical Provider 08/15/22 02/10/24 Cristina Hsieh [facility] [address] [facility] [address] Pharmacist Pharmacist 09/07/22 Alfreda Ray PA-C [address] [place] [address] 039862 Assigned Pain Medication Provider 09/05/22 09/10/23 Alfreda Ray PA-C [address] [place] [address] 894712 Assigned PCP 08/29/22 Cristina Hsieh [facility] [address] [place] [address] Assigned MTM Pharmacist 09/26/22 Dakota Tatum MD [address] [place] [address]77 Cardiovascular Disease 03/25/23 Dakota Tatum MD [address] [place] [address] 77921 Assigned Heart and Vascular Provider 05/01/23 [place] [address] [facility], [address] [address] Assigned Musculoskeletal Provider 04/12/24 documented as of this encounter
--- OUTSIDE RECORDS SUMMARY | 2024-06-23 00:23 | XMS_ITS | Encounter Summary ---
Author Organization [place] Address [address] [place] [address] Care Team Providers Care Paint Tester Name Role Phone Esperanza Gatica MD Primary Care Provider + Esperanza Gatica MD Unavailable + Esperanza Gatica MD Unavailable + Esperanza Gatica MD Unavailable + Esperanza Gatica MD Unavailable + Esperanza Gatica MD Unavailable + Jesús Orourke MD Unavailable Alfreda Ray-C Primary Care Provider + Alfreda Ray-C Unavailable + [phone] Katrin OrellanaC Unavailable +1-55 Shanna Vang-C Unavailable +[phone] Fransisco Eddy MD Unavailable +[phone] Esperanza Gatica MD Unavailable + Esperanza Gatica MD Unavailable + Katrin OrellanaC Unavailable +1-29 Cristina Hsieh [facility] Unavailable +60 Alfreda Ray PA-C Unavailable +[phone] Alfreda Ray PA-C Unavailable +[phone] Cristina Hsieh Martin [facility] Unavailable +[phone] LaDakota guerra MD Unavailable +[phone] LaDakota guerra MD Unavailable +[phone] Srinivas Marie DO Unavailable [phone] Reason for Visit * Reason Onset Date Comments Prior Auth - Medication 04/28/2019 gabapent in (NEURONTIN) 100 MG capsule-Tiering Exception-Denied Encounter Details Date Type Department Care Team (Late st Contact Info) Description 04/28/[address], [address] [place] [address] [place] [address] [place] [address] Prior Auth - Medication (gabapentin [...] Sex Assigned at Female 08/17/2018 7:56 AM DIE MAKER APPRENTICE Legal Sex Female 4:24 AM DIE MAKER APPRENTICE Gender Identity Female 08/17/2018 7:56 AM DIE MAKER APPRENTICE Sexual Orientation Straight 08/17/2018 7: 56 AM DIE MAKER APPRENTICE documented as of this encounter Miscellaneous Notes * Telephone Encounter - Nidhi Russo - 05/02/2019 11:45 AM CST Images from the original note were not included. PRIOR AUTHORIZATION DENIED Medication: gabapentin (NEURONTIN) 100 MG capsule-Tiering Exception-Denied Denial Date: 04/28/2019 Denial Rational: Patient does not meet criteria for tiering exception MAKER APPRENTICE * Telephone Encounter - KaranAmilcarNidhi L - 05/02/2019 10:41 AM CST I spoke to Chance at [facility]. She states this request was denied. She will have the denial refaxed. MAKER APPRENTICE * Telephone Encounter - Karan Nidhi L - 04/28/2019 9:27 AM CST Clint Prior Authorization Team PA Initiation-Tiering exception. Completed via phone with Jamee at [facility] Medication: gabapentin (NEURONTIN) 100 MG capsule-Tiering Exception Insurance Company: [facility] - Pharmacy Filling the Rx: [facility] - [place], [place] - [address] [place] [place] [address] Filling Pharmacy Filling Pharmacy Fax: Start Date: 04/28/2019 MAKER APPRENTICE documented in this encounter Plan of Treatment Upcoming Encounters Date Type Department Care Team (Late st Contact Info) Description 09/07/2024 10:00 AM CDT Office Visit [facility] [address] [phone] Fransisco Eddy MD [address] [place] [address] 03/29/2025 3:40 PM CDT Office Visit [address] [phone] Alfreda Ray PA-C [address] [place] [address] 100302 documented as of this encounter Visit Diagnoses Not on filedocumented in this encounter Additional Health Concerns Infection Onset Date Last Indicated Resolved Time Rule Out COVID-19 05/08/2021 05/08/2021 05/09/2021 9:08 PM DIE MAKER APPRENTICE Assessment Noted Time PHQ-9 Depression Total Score: 1 08/20/19 19 1:44 PM DIE MAKER APPRENTICE documented as of this encounter Care Teams Paint Tester Relationship Specialty Start Date End Date Esperanza Gatica MD PCP - General Family Practice 10/13/11 12/29/21 Alfreda Ray PA-C [address] [place] [address]703 PCP - General Family Medicine 12/30/21 [place] [address] [address] [address] Assigned PCP 12/05/17 09/30/19 [place] [address] [address] 8[address]99 Assigned PCP 10/01/19 03/02/20 [place] [address] [address] [address] Assigned PCP 03/03/20 05/25/20 [place] [address] [address] [address] Assigned PCP 05/26/20 09/28/20 [place] [address] [address] [address] Assigned PCP 09/29/20 07/31/22 Jesú[place] [address] [address] Assigned Musculoskeletal Provider 10/20/20 04/17/22 Alfreda Rya PA-C [address] [place] [address] [phone] Referring Physician Family Medicine 12/31/21 Katrin Orellana PA-C [address] [place] [address] [phone] Physician Registered Land Surveyor Dermatology 12/31/21 Shanna Vang PA-C [address] [place] [address] 105054 Assigned Cancer Care Provider 01/10/22 Fransisco Eddy MD [address] [place] [address] 573875 Assigned Rheumatology Provider 05/09/22 [place] [address] [address] [address] Assigned Pain Medication Provider 06/29/22 09/04/22 [place] [address] [address] [address] Assigned PCP 08/15/22 08/28/22 Katrin Orellana PA-C [address] [place] [address] 117975 Assigned Surgical Provider 08/15/22 02/10/24 Cristina Hsieh [facility] [address] [facility] LISBETH HERNANDEZ [address] Pharmacist Pharmacist 09/07/22 Alfreda Ray PA-C [address] [place] [address] 057502 Assigned Pain Medication Provider 09/05/22 09/10/23 Alfreda Ray PA-C [address] [place] [address] 22711 Assigned PCP 08/29/22 Cristina Hsieh [facility] [address] [place] [address] 77676 Assigned MTM Pharmacist 09/26/22 Dakota Tatum MD [address] [place] [address] 64546 Cardiovascular Disease 03/25/23 Dakota Tatum MD [address] [place] [address] 22647 Assigned Heart and Vascular Provider 05/01/23 [place] [address] [address] Assigned Musculoskeletal Provider 04/12/24 documented as of this encounter
--- OUTSIDE RECORDS SUMMARY | 2024-06-23 00:23 | XMS_ITS | Encounter Summary ---
Author Organization [facility] Address [address] [place] [address] Care Team Providers Care Inside Sales Recruiter Name Role Phone Esperanza Gatica MD Primary Care Provider + Esperanza Gatica MD Unavailable + Esperanza Gatica MD Unavailable + Esperanza Gatica MD Unavailable + Epseranza Gatica MD Unavailable + Esperanza Gatica MD Unavailable + Jesús Orourke MD Unavailable Alfreda Ray-C Primary Care Provider + Alfreda Ray-C Unavailable + [phone] Katrin OrellanaC Unavailable +[phone] Shanna Vang-C Unavailable +[phone] Fransisco Eddy MD Unavailable +[phone] Esperanza Gatica MD Unavailable + Esperanza Gatica MD Unavailable + Katrin OrellanaC Unavailable +1-11 Cristina Hsieh [facility] Unavailable +23 Alfreda Ray PA-C Unavailable +[phone] Cory Alfreda Liu PA-C Unavailable Cristina Hsieh Martin [facility] Unavailable +[phone] DeeptiDakota MD Unavailable +[phone] LaDakota guerra MD Unavailable +[phone] Srinivas Marie Unavailable +[phone] Encounter Details Date Type Department Care Team (Late st Contact Info) Description 07/27/2019 MyC Medical Advice [address], [address] [place] [address] [place] [address] [place] [address] Social History Tobacco Use Types [...] Sex Assigned at Female 08/17/2018 7:56 AM SPORTS MEDIA Legal Sex Female 4:24 AM SPORTS MEDIA Gender Identity Female 08/17/2018 7:56 AM SPORTS MEDIA Sexual Orientation Straight 08/17/2018 7: 56 AM SPORTS MEDIA documented as of this encounter Plan of Treatment Upcoming Encounters Date Type Department Care Team (Late st Contact Info) Description 09/07/2024 10:00 AM CDT Office Visit [facility] [address] [place] [address] Fransisco Eddy MD [address] [place] [address] 03/29/2025 3:40 PM CDT [facility] [address] [phone] Alfreda Ray PA-C [address] [place] [address] 684892 documented as of this encounter Visit Diagnoses Not on filedocumented in this encounter Additional Health Concerns Infection Onset Date Last Indicated Resolved Time Rule Out COVID-19 05/08/2021 05/08/2021 05/09/2021 9:08 PM SPORTS MEDIA Assessment Noted Time PHQ-9 Depression Total Score: 1 08/20/19 19 1:44 PM SPORTS MEDIA documented as of this encounter Care Teams Inside Sales Recruiter Relationship Specialty Start Date End Date Esperanza Gatica MD PCP - General Family Practice 10/13/11 12/29/21 Alfreda Ray PA-C [address] [place] [address]165 PCP - General Family Medicine 12/30/21 [place] [address] [address] GARCIA [address] Assigned PCP 12/05/17 09/30/19 [place] [address] [address] GARCIA [address] Assigned PCP 10/01/19 03/02/20 [place] [address] [address] GARCIA 63990 Assigned PCP 03/03/20 05/25/20 [place] [address] LISB[address] AGRCIA 357[address] Assigned PCP 05/26/20 09/28/20 [place] [address] [place] [address] Assigned PCP 09/29/20 07/31/22 [place] [address] [place] [address] [address] Assigned Musculoskeletal Provider 10/20/20 04/17/22 Alfreda Ray PA-C [address] [place] [address]383 Referring Physician Family Medicine 12/31/21 Katrin Orellana PA-C [address] [place] [address] Physician Unix Analyst Dermatology 12/31/21 Shanna Vang PA-C [address] [address] Assigned Cancer Care Provider 01/10/22 Fransisco Eddy MD [address] [place] [address] Assigned Rheumatology Provider 05/09/22 [place] [address] [place] [address] Assigned Pain Medication Provider 06/29/22 09/04/22 [place] [address] [place] [address] Assigned PCP 08/15/22 08/28/22 Katrin Orellana PA-C [address] [place] [address] 98 [place] [address] Assigned Surgical Provider 08/15/22 02/10/24 Cristina Hsieh [facility] [address] [facility] [place] [address] Pharmacist Pharmacist 09/07/22 Alfreda Ray PA-C [address] [place] [address] 828292 Assigned Pain Medication Provider 09/05/22 09/10/23 Alfreda Ray PA-C [address] [place] [address] 971682 Assigned PCP 08/29/22 Cristina Hsieh [facility] [address] [place] [address] 39125 Assigned MTM Pharmacist 09/26/22 Dakota Tatum MD [address] [place] [address]107 Cardiovascular Disease 03/25/23 Dakota Tatum MD [address] [place] [address]267 Assigned Heart and Vascular Provider 05/01/23 [place] [address] [facility], [address] [address] Assigned Musculoskeletal Provider 04/12/24 documented as of this encounter
--- OUTSIDE RECORDS SUMMARY | 2024-06-23 00:23 | XMS_ITS | Encounter Summary ---
Author Organization [facility] Address [address] [place] [address] Care Team Providers Care Brusher Machine Name Role Phone Esperanza Gatica MD Primary Care Provider + Esperanza Gatica MD Unavailable + Esperanza Gatica MD Unavailable + Esperanza Gatica MD Unavailable + Esperanza Gatica MD Unavailable + Esperanza Gatica MD Unavailable + Jesús Orourke MD Unavailable Alfreda Ray-C Primary Care Provider + Alfreda Ray-C Unavailable + [phone] Katrin OrellanaC Unavailable +[phone] Shanna Vang-C Unavailable +[phone] Fransisco Eddy MD Unavailable [phone] Esperanza Gatica MD Unavailable + Esperanza Gatica MD Unavailable + Katrin OrellanaC Unavailable +[phone] Cristina Hsieh [facility] Unavailable +60 Ray, Alfreda Liu PA-C Unavailable +[phone] Ray, Alfreda Liu PA-C Unavailable +[phone] Cristina Hsieh [facility] Unavailable +[phone] Dakota Tatum MD Unavailable [phone] Dakota Tatum MD Unavailable +[phone] Srinivas Marie DO Unavailable [phone] Reason for Visit * Reason Onset Date Comments Medication Refill 02/21/2019 atenolol (TENO RMIN) 25 MG tablet Encounter Details Date Type Department Care Team (Late st Contact Info) Description 02/18/[address], [address] [place] [address] [place] [address] [place] [address] Medication Refill (atenolol (TENORMIN) 25 [...] Sex Assigned at Female 08/17/2018 7:56 AM TRAILER TANK TRUCK DRIVER Legal Sex Female 4:24 AM TRAILER TANK TRUCK DRIVER Gender Identity Female 08/17/2018 7:56 AM TRAILER TANK TRUCK DRIVER Sexual Orientation Straight 08/17/2018 7: 56 AM TRAILER TANK TRUCK DRIVER documented as of this encounter Miscellaneous Notes * Telephone Encounter - Yamile Otero RN - 02/22/2019 9:45 AM CDT Images from the original note were not included. Provider filled on 02/21/2019 Vandana Otero RN Patient Care In File Operator [facility] [phone] * Telephone Encounter - Diya Stone - [...] CDT Office Visit with Esperanza Gatica MD [facility] [address] [place] [address], [facility] [address] [facility] [address] Beta-Blockers Protocol Passed - 02/18/2019 2:54 [...] Description 09/07/2024 10:00 AM CDT Office Visit [address] [place] [address] Fransisco Eddy MD [address] [place] [address] 03/29/2025 3:40 PM CDT Office Visit [address] [address] Alfreda Ray PA-C [address] [place] [address] documented as of this encounter Visit Diagnoses Diagnosis HTN, goal below 140/90 Unspecified essential hypertension documented in this encounter Additional Health Concerns Infection Onset Date Last Indicated Resolved Time Rule Out COVID-19 05/08/2021 05/08/2021 05/09/2021 9:08 PM TRAILER TANK TRUCK DRIVER Assessment Noted Time PHQ-9 Depression Total Score: 1 08/20/19 1:44 PM TRAILER TANK TRUCK DRIVER documented as of this encounter Care Teams Brusher Machine Relationship Specialty Start Date End Date Esperanza Gatica MD PCP - General Family Practice 10/13/11 12/29/21 Alfreda Ray PA-C [address] [place] [address] 077322 PCP - General Family Medicine 12/30/21 [place] [address] [address]IS[address] GARCIA [address] Assigned PCP 12/05/17 09/30/19 [place] [address] [address] GARCIA [address] Assigned PCP 10/01/19 03/02/20 [place] [address] L[address] GARCIA [address] Assigned PCP 03/03/20 05/25/20 [place] [address] [place] [id number] Assigned PCP 05/26/20 09/28/20 [place] [address] LISB[address] GARCIA [address]872 Assigned PCP 09/29/20 07/31/22 Jesú[place] [address] [facility] [place] [address] Assigned Musculoskeletal Provider 10/20/20 04/17/22 Alfreda Ray PA-C [address] [place] [address] 647572 Referring Physician Family Medicine 12/31/21 Katrin Orellana PA-C [address] [place] [address] Physician Nutritional Yeast Supervisor Dermatology 12/31/21 Shanna Vang PA-C [facility] [place] [address] Assigned Cancer Care Provider 01/10/22 Fransisco Eddy MD [address] [place] [address] [phone] Assigned Rheumatology Provider 05/09/22 [place] [address] [address] GARCIA [address] Assigned Pain Medication Provider 06/29/22 09/04/22 [place] [address] [place] [address] Assigned PCP 08/15/22 08/28/22 Katrin Orellana PA-C [address] [place] [address] Assigned Surgical Provider 08/15/22 02/10/24 Cristina Hsieh [facility] [address] [place] [address] [place] [address] Pharmacist Pharmacist 09/07/22 Alfreda Ray PA-C [address] [place] [address] Assigned Pain Medication Provider 09/05/22 09/10/23 Alfreda Ray PA-C [address] [place] [address] 599[address] Assigned PCP 08/29/22 Cristina Hsieh [facility] [address] [place] [address] Assigned MTM Pharmacist 09/26/22 Dakota Tatum MD [address] [place] [address] 309325 Cardiovascular Disease 03/25/23 Dakota Tatum MD [address] [place] [address] 784645 Assigned Heart and Vascular Provider 05/01/23 [place] [address] CE[address] GASTELUM, [address] [address] [address] Assigned Musculoskeletal Provider 04/12/24 documented as of this encounter
--- OUTSIDE RECORDS SUMMARY | 2024-06-23 00:23 | XMS_ITS | Encounter Summary ---
Author Organization [facility] Address [address] [place] [address] Care Team Providers Care Laminator Name Role Phone Esperanza Gatica MD Primary Care Provider + Esperanza Gatica MD Unavailable + Esperanza Gatica MD Unavailable + Esperanza Gatica MD Unavailable + Esperanza Gatica MD Unavailable + Esperanza Gatica MD Unavailable + Jesús Orourke MD Unavailable Alfreda Ray-C Primary Care Provider + Alfreda Ray-C Unavailable + [phone] Katrin OrellanaC Unavailable +[phone] Shanna Vang-C Unavailable +[phone] Fransisco Eddy MD Unavailable [phone] Esperanza Gatica MD Unavailable + Esperanza Gatica MD Unavailable + Katrin OrellanaC Unavailable +1-48 Cristina Hsieh [facility] Unavailable +60 Alfreda Ray PA-C Unavailable Alfreda Ray PA-C Unavailable +[phone] Cristina Hsieh Martin [facility] Unavailable +1-1-2 [phone] Dakota Tatum MD Unavailable +[phone] Dakota Tatum MD Unavailable +[phone] Srinivas Marie Unavailable [phone] Encounter Details Date Type Department Care Team (Late st Contact Info) Description 09/25/2019 MyC Medical Advice [address] [address] Edel Corrigan LIQUEFIED NATURAL GAS PLANT OPERATOR Social History Tobacco Use Types Packs/Day Years [...] Sex Assigned at Female 08/17/2018 7:56 AM INSPECTOR WATCH PARTS Legal Sex Female 4:24 AM INSPECTOR WATCH PARTS Gender Identity Female 08/17/2018 7:56 AM INSPECTOR WATCH PARTS Sexual Orientation Straight 08/17/2018 7: 56 AM INSPECTOR WATCH PARTS documented as of this encounter Plan of Treatment Upcoming Encounters Date Type Department Care Team (Late st Contact Info) Description 09/07/2024 10:00 AM CDT Office Visit [facility] [address] [phone] Fransisco Eddy MD [address] [place] [address] 03/29/2025 3:40 PM CDT Office Visit [address] [phone] Alfreda Ray PA-C [address] [place] [address] documented as of this encounter Visit Diagnoses Not on filedocumented in this encounter Additional Health Concerns Infection Onset Date Last Indicated Resolved Time Rule Out COVID-19 05/08/2021 05/08/2021 05/09/2021 9:08 PM INSPECTOR WATCH PARTS Assessment Noted Time PHQ-9 Depression Total Score: 1 08/20/19 19 1:44 PM INSPECTOR WATCH PARTS documented as of this encounter Care Teams Laminator Relationship Specialty Start Date End Date Esperanza Gatica MD PCP - General Family Practice 10/13/11 12/29/21 Alfreda Ray PA-C [address] [place] [address] PCP - General Family Medicine 12/30/21 [place] [address] L[address] GARCIA [address] Assigned PCP 12/05/17 09/30/19 [place] [address] L[address] GARCIA [address]709 Assigned PCP 10/01/19 03/02/20 [place] [address] [address] GARCIA [address] Assigned PCP 03/03/20 05/25/20 [place] [address] [place] [address] Assigned PCP 05/26/20 09/28/20 [place] [address] [place] [address] Assigned PCP 09/29/20 07/31/22 Jesú[place] [address] [place] [address] Assigned Musculoskeletal Provider 10/20/20 04/17/22 Alfreda Ray PA-C 4151 [place], [place] 401682 Referring Physician Family Medicine 12/31/21 Katrin Orellana PA-C [address] [place] [address] 98 [place], [place] 839055 Physician Supervisor Printing And Stamping Dermatology 12/31/21 Shanna Vang PA-C [address] 047124 Assigned Cancer Care Provider 01/10/22 Fransisco Eddy MD [address] [place] [address] 765945 Assigned Rheumatology Provider 05/09/22 [place] [address] [address] GARCIA [address] Assigned Pain Medication Provider 06/29/22 09/04/22 [place] [address] [place] [address] Assigned PCP 08/15/22 08/28/22 Katrin Orellana PA-C [address] [facility] 98 [place] [address] Assigned Surgical Provider 08/15/22 02/10/24 Cristina Hsieh [facility] [address] [facility] LISBETH HERNANDEZ [address] Pharmacist Pharmacist 09/07/22 Alfreda Ray PA-C [address] [place] [address] 480252 Assigned Pain Medication Provider 09/05/22 09/10/23 Alfreda Ray PA-C [address] [place] [address] 565002 Assigned PCP 08/29/22 Cristina Hsieh, [facility] [address] [address] Assigned MTM Pharmacist 09/26/22 Dakota Tatum MD [address] [place] [address] Cardiovascular Disease 03/25/23 Dakota Tatum MD 6 [place] [address] Assigned Heart and Vascular Provider 05/01/23 [place] [address] CELE GASTELUM, [facility] [address] [place] [address] Assigned Musculoskeletal Provider 04/12/24 documented as of this encounter
--- OUTSIDE RECORDS SUMMARY | 2024-06-23 00:23 | XMS_ITS | Encounter Summary ---
Author Organization [facility] [place] Address [address] [place] [address] Care Team Providers Care Jerker Name Role Phone Esperanza Gatica MD Primary Care Provider + Esperanza Gatica MD Unavailable + Esperanza Gatica MD Unavailable + Esperanza Gatica MD Unavailable + Esperanza Gatica MD Unavailable + Esperanza Gatica MD Unavailable + Jesús Orourke MD Unavailable Alfreda Ray-C Primary Care Provider + Alfreda Ray-C Unavailable + [phone] Katrin OrellanaC Unavailable +[phone] Shanna Vang-C Unavailable +[phone] Fransisco Eddy MD Unavailable [phone] Esperanza Gatica MD Unavailable + Esperanza Gatica MD Unavailable + Katrin OrellanaC Unavailable +1-24 Cristina Hsieh [facility] Unavailable +60 Alfreda Ray PA-C Unavailable +[phone] Alfreda Ray PA-C Unavailable +[phone] Cristina Hsieh [facility] Unavailable + [phone] DeeptiDakota MD Unavailable + [phone] LaDakota guerra MD Unavailable + [phone] Srinivas Marie DO Unavailable [phone] Reason for Referral * Consultation (Routine) - Closed Specialty Diagnoses / Procedures Referred By Contmarcus t Referred To Contact Diagnoses Dysfunction of Eustachian tube, unspecified laterality Esperanza Gatica MD Phone: tel: fax: [facility] [address] [place] [address], [address] [place] [address] Phone: tel: Referral ID Status Reason Start Date Expiration Date Visits Re quested Visits Authorized [id number] Closed 04/13/2019 04/12/2020 1 1 Comments Your provider has referred you to: N: [facility] of [facility] [email or web address] Please be aware that coverage of these services is subject to the terms and limitations of your health insurance plan. Call member services at your health plan with any benefit or coverage questions. Please bring the following with you to your appointment: (1) Any X-Rays, CTs or MRIs which have been performed. Contact the facility where they were done to arrange for black pickler prior to your scheduled appointment. (2) List of current medications (3) This referral request (4) Any documents/labs given to you for this referral Reason for Visit * Reason Onset Date Comments Referral 04/13/2019 ENT Encounter Details Date Type Department Care Team (Late st Contact Info) Description 04/13/2019 [facility] [address] [place] [address], [address] [place] [address] [place] [address] [address] [place], [place] [phone] Referral (ENT) Social History Tobacco Use Types [...] Assigned at Female 08/17/2018 7:56 AM MARKETING TEACHER Legal Sex Female 4:24 AM MARKETING TEACHER Gender Identity Female 08/17/2018 7:56 AM MARKETING TEACHER Sexual Orientation Straight 08/17/2018 7: 56 AM MARKETING TEACHER documented as of this encounter Miscellaneous Notes * Telephone Encounter - Esperanza Gatica MD - 04/13/2019 1:39 PM CDT I can refer her to the [facility] or choose a ENT in the network, but not in [place]. I placed the a referral to the local ent for now. Let me know if she wants to change documented in this encounter Plan of Treatment Upcoming Encounters Date Type Department Care Team (Late st Contact Info) Description 09/07/2024 10:00 AM CDT Office Visit [facility] [address] [place] [phone] Fransisco Eddy MD [address] [place] [address] 476025 03/29/2025 3:40 PM CDT Office Visit [address] [phone] Alfreda Ray PA-C [address] [place] [address] Scheduled Referrals Name Type Priority Associated Diagnoses Orde r Schedule OTOLARYNGOLOGY REFERRAL Referral Routine Dysfunction of Eustachian tube, unspecified laterality Ordered: 04/13/2019 documented as of this encounter Visit Diagnoses Diagnosis Dysfunction of Eustachian tube, unspecified laterality- Primary documented in this encounter Additional Health Concerns Infection Onset Date Last Indicated Resolved Time Rule Out COVID-19 05/08/2021 05/08/2021 05/09/2021 9:08 PM MARKETING TEACHER Assessment Noted Time PHQ-9 Depression Total Score: 1 08/20/19 19 1:44 PM MARKETING TEACHER documented as of this encounter Care Teams Jerker Relationship Specialty Start Date End Date Esperanza Gatica MD PCP - General Family Practice 10/13/11 12/29/21 Alfreda Ray PA-C [address] [place] [address] PCP - General Family Medicine 12/30/21 [place] [address] LISB[address] GARCIA [address] Assigned PCP 12/05/17 09/30/19 [place] [address] LISB[address] GARCIA [address] Assigned PCP 10/01/19 03/02/20 [place] [address] LISB[address] GARCIA [address] Assigned PCP 03/03/20 05/25/20 [place] [address] [address] [place] [address] Assigned PCP 05/26/20 09/28/20 [place] [address] [place] [address] Assigned PCP 09/29/20 07/31/22 [place] [address] [facility] [place] [address] Assigned Musculoskeletal Provider 10/20/20 04/17/22 Alfreda Ray PA-C [address] [place] [address] 120422 Referring Physician Family Medicine 12/31/21 Katrin Orellana PA-C [address] [place] [address] 98 [place], [place] 410425 Physician Collar Setter Overlock Dermatology 12/31/21 Shanna Vang PA-C [address] [place] [address] 284114 Assigned Cancer Care Provider 01/10/22 Fransisco Eddy MD [address] [place] [address] 124425 Assigned Rheumatology Provider 05/09/22 [place] [address] [place] [address] Assigned Pain Medication Provider 06/29/22 09/04/22 [place] [address] [place] [address] Assigned PCP 08/15/22 08/28/22 Katrin Orellana PA-C [address] [place] [address] 189395 Assigned Surgical Provider 08/15/22 02/10/24 Cristina Hsieh [facility] [address] [facility] LISBETH HERNANDEZ [address] Pharmacist Pharmacist 09/07/22 Alfreda Ray PA-C [address] [place] [address] 167082 Assigned Pain Medication Provider 09/05/22 09/10/23 Alfreda Ray PA-C [address] [place] [address] 746282 Assigned PCP 08/29/22 Cristina Hsieh [facility] [address] [address] Assigned MTM Pharmacist 09/26/22 Dakota Tatum MD [address] [place] [address] 927025 Cardiovascular Disease 03/25/23 Dakota Tatum MD [address] [place] [address] Assigned Heart and Vascular Provider 05/01/23 [place] [address] CELE GASTELUM, [address] [address] Assigned Musculoskeletal Provider 04/12/24 documented as of this encounter
--- OUTSIDE RECORDS SUMMARY | 2024-06-23 00:23 | XMS_ITS | Encounter Summary ---
Author Organization [place] Address [address] [place] [address] 13709 Care Team Providers Care Document Processing Specialist Name Role Phone Esperanza Gatica MD Primary Care Provider + Esperanza Gatica MD Unavailable + Esperanza Gatica MD Unavailable + Esperanza Gatica MD Unavailable + Esperanza Gatica MD Unavailable + Jesús Orourke MD Unavailable Alfreda Ray PA-C Primary Care Provider + Alfreda Ray PA-C Unavailable +[phone] Katrin Orellana PA-C Unavailable +[phone] Shanna Vang PA-C Unavailable +[phone] Fransisco Eddy MD Unavailable +[phone] Esperanza Gatica MD Unavailable + Esperanza Gatica MD Unavailable + Katrin Orellana PA-C Unavailable +[phone] Cristina Hsieh [facility] Unavailable + [phone] Alfreda Ray PA-C Unavailable Alfreda Ray PA-C Unavailable Cristina Hsieh [facility] Unavailable +[phone] Dakota Tatum MD Unavailable [phone] Dakota Tatum MD Unavailable [phone] Srinivas Marie DO Unavailable [phone] Reason for Visit * Reason Comments Medication Refill Encounter Details Date Type Department Care Team (Late st Contact Info) Description 11/02/[address], [address] [place] [address] [place] [address] [address] [place], [place] [phone] Medication Refill Social History Tobacco Use Types [...] Sex Assigned at Female 08/17/2018 7:56 AM FRONT MAKER Legal Sex Female 4:24 AM FRONT MAKER Gender Identity Female 08/17/2018 7:56 AM FRONT MAKER Sexual Orientation Straight 08/17/2018 7: 56 AM FRONT MAKER documented as of this encounter Miscellaneous Notes * Telephone Encounter - Essence Meyer RN - 11/02/2019 10:08 AM CDT Prescription approved per [facility], [facility] or [facility] refill protocol. Essence Rodney - Registered Nurse [facility] documented in this encounter Plan of Treatment Upcoming Encounters Date Type Department Care Team (Late st Contact Info) Description 09/07/2024 10:00 AM CDT Office Visit [facility] [address] [place] [address] [address] L[place] FRASER [phone] Fransisco Eddy MD [address] [place] [address] 03/29/2025 3:40 PM CDT Office Visit [address] [phone] Alfreda Ray PA-C [address] [place] [address] 708192 documented as of this encounter Visit Diagnoses Diagnosis Insomnia, unspecified type documented in this encounter Additional Health Concerns Infection Onset Date Last Indicated Resolved Time Rule Out COVID-19 05/08/2021 05/08/2021 05/09/2021 9:08 PM FRONT MAKER Assessment Noted Time PHQ-9 Depression Total Score: 1 08/20/19 19 1:44 PM FRONT MAKER documented as of this encounter Care Teams Document Processing Specialist Relationship Specialty Start Date End Date Esperanza Gatica MD PCP - General Family Practice 10/13/11 12/29/21 Alfreda Ray PA-C [address] [place] [address] [phone] PCP - General Family Medicine 12/30/21 [place] [address] [place] GARCIA 16608 Assigned PCP 10/01/19 03/02/20 [place] [address] [address] GARCIA 91995 Assigned PCP 03/03/20 05/25/20 [place] [address] [place] [address] Assigned PCP 05/26/20 09/28/20 [place] [address] [place] [address] Assigned PCP 09/29/20 07/31/22 Jesú[place] [address] [place], [place] 179597 Assigned Musculoskeletal Provider 10/20/20 04/17/22 Alfreda Ray PA-C [address] [place] [address] [phone] Referring Physician Family Medicine 12/31/21 Katrin Orellana PA-C [address] [place] [address] 484795 Physician Home Health Lvn Dermatology 12/31/21 Shanna Vang PA-C [address] [phone] Assigned Cancer Care Provider 01/10/22 Fransisco Eddy MD [address] [place] [address] [phone] Assigned Rheumatology Provider 05/09/22 [place] [address] [place] [address] Assigned Pain Medication Provider 06/29/22 09/04/22 [place] [address] [place] [address] Assigned PCP 08/15/22 08/28/22 Katrin Orellana PA-C [address] [place] [address] 829055 Assigned Surgical Provider 08/15/22 02/10/24 Cristina Hsieh RPH [address] [place] [address] LISBETH HERNANDEZ [address] Pharmacist Pharmacist 09/07/22 Alfreda Ray PA-C [address] [place] [address] 447712 Assigned Pain Medication Provider 09/05/22 09/10/23 Alfreda Ray PA-C [address] [place] [address] 427732 Assigned PCP 08/29/22 Cristina Hsieh [facility] [address] [place] [address] [phone] Assigned MTM Pharmacist 09/26/22 Dakota Tatum MD [address] [place] [address] 165305 Cardiovascular Disease 03/25/23 Dakota Tatum MD [address] [place] [address] 02084 Assigned Heart and Vascular Provider 05/01/23 [place] [address] CELE GASTELUM, [address] [address] Assigned Musculoskeletal Provider 04/12/24 documented as of this encounter
--- OUTSIDE RECORDS SUMMARY | 2024-06-23 00:23 | XMS_ITS | Encounter Summary ---
Author Organization [place] Address [address] [place] [address] 27795 Care Team Providers Care Steel Erector Apprentice Name Role Phone Esperanza Gatica MD Primary Care Provider + Esperanza Gatica MD Unavailable + Esperanza Gatica MD Unavailable + Esperanza Gatica MD Unavailable + Esperanza Gatica MD Unavailable + Esperanza Gatica MD Unavailable + Jesús Orourke MD Unavailable Alfreda Ray-C Primary Care Provider + Alfreda Ray-C Unavailable + [phone] Katrin OrellanaC Unavailable +[phone] Shanna Vang-C Unavailable +[phone] Fransisco Eddy MD Unavailable [phone] Esperanza Gatica MD Unavailable + Esperanza Gatica MD Unavailable + Katrin OrellanaC Unavailable +[phone] Cristina Hsieh [facility] Unavailable +11 Alfreda Ray PA-C Unavailable [phone] Cory Alfreda Liu PA-C Unavailable +[phone] Cristina Hsieh Martin [facility] Unavailable +[phone] DeeptiDakota MD Unavailable [phone] LaDakota guerra MD Unavailable [phone] Srinivas Marie Unavailable [phone] Encounter Details Date Type Department Care Team (Late st Contact Info) Description 07/27/2019 MyC Medical Advice [address], [address] [place] [address] [place] [address] [place] [address] Social History Tobacco Use Types [...] Sex Assigned at Female 08/17/2018 7:56 AM FINANCIAL INTERN Legal Sex Female 4:24 AM FINANCIAL INTERN Gender Identity Female 08/17/2018 7:56 AM FINANCIAL INTERN Sexual Orientation Straight 08/17/2018 7: 56 AM FINANCIAL INTERN documented as of this encounter Plan of Treatment Upcoming Encounters Date Type Department Care Team (Late st Contact Info) Description 09/07/2024 10:00 AM CDT Office Visit [facility] [address] [place] [address] Fransisco Eddy MD [address] [place] [address] 03/29/2025 3:40 PM CDT [facility] [address] [phone] Alfreda Ray PA-C [address] [place] [address] 684992 documented as of this encounter Visit Diagnoses Not on filedocumented in this encounter Additional Health Concerns Infection Onset Date Last Indicated Resolved Time Rule Out COVID-19 05/08/2021 05/08/2021 05/09/2021 9:08 PM FINANCIAL INTERN Assessment Noted Time PHQ-9 Depression Total Score: 1 08/20/19 19 1:44 PM FINANCIAL INTERN documented as of this encounter Care Teams Steel Erector Apprentice Relationship Specialty Start Date End Date Esperanza Gatica MD PCP - General Family Practice 10/13/11 12/29/21 Alfreda Ray PA-C [address] [place] [address]70 PCP - General Family Medicine 12/30/21 [place] [address] [place] GARCIA [address] Assigned PCP 12/05/17 09/30/19 [place] [address] [place] GARCIA 39685 Assigned PCP 10/01/19 03/02/20 [place] [address] L[place]B[address] GARCIA [address] Assigned PCP 03/03/20 05/25/20 [place] [address] [place] GARCIA [address] Assigned PCP 05/26/20 09/28/20 [place] [address] [place] [address] Assigned PCP 09/29/20 07/31/22 [place] [address] [place] [address] [address] Assigned Musculoskeletal Provider 10/20/20 04/17/22 Alfreda Ray PA-C [address] [place] [address] 97925 Referring Physician Family Medicine 12/31/21 Katrin Orellana PA-C [address] [place] [address]75 Physician Compliance Nurse Dermatology 12/31/21 Shanna Vang PA-C [address] [address] Assigned Cancer Care Provider 01/10/22 Fransisco Eddy MD [address] [place] [address] 94017 Assigned Rheumatology Provider 05/09/22 [place] [address] [place] [address] Assigned Pain Medication Provider 06/29/22 09/04/22 [place] [address] [place] [address] Assigned PCP 08/15/22 08/28/22 Katrin Orellana PA-C [address] [place] [address] 98 [place] [address] Assigned Surgical Provider 08/15/22 02/10/24 Cristina Hsieh [facility] [address] [place] [address] Pharmacist Pharmacist 09/07/22 Alfreda Ray PA-C [address] [place] [address] 413682 Assigned Pain Medication Provider 09/05/22 09/10/23 Alfreda Ray PA-C [address] [place] [address] 977382 Assigned PCP 08/29/22 Cristina Hsieh [facility] [address] [place] [address] 84293 Assigned MTM Pharmacist 09/26/22 Dakota Tatum MD [address] [place] [address] 94258 Cardiovascular Disease 03/25/23 Dakota Tatum MD [address] [place] [address]189 Assigned Heart and Vascular Provider 05/01/23 [place] [address] [facility], [address] [address] Assigned Musculoskeletal Provider 04/12/24 documented as of this encounter
--- OUTSIDE RECORDS SUMMARY | 2024-06-23 00:23 | XMS_ITS | Encounter Summary ---
Author Organization [place] Address [address] [place] [address] Care Team Providers Care Seed Buyer Name Role Phone Esperanza Gatica MD Primary Care Provider + Esperanza Gatica MD Unavailable + Esperanza Gatica MD Unavailable + Esperanza Gatica MD Unavailable + Esperanza Gatica MD Unavailable + Esperanza Gatica MD Unavailable + Jesús Orourke MD Unavailable Alfreda Ray-C Primary Care Provider + Alfreda Ray-C Unavailable + [phone] Katrin OrellanaC Unavailable +[phone] Shanna Vang-C Unavailable +[phone] Fransisco Eddy MD Unavailable [phone] Esperanza Gatica MD Unavailable + Esperanza Gatica MD Unavailable + Katrin OrellanaC Unavailable +[phone] Cristina Hsieh [facility] Unavailable +60 Alfreda Ray PA-C Unavailable +[phone] Alfreda Ray PA-C Unavailable +[phone] MelissaCristina shields Martin [facility] Unavailable +[phone] LaDakota guerra MD Unavailable [phone] LaDakota guerra MD Unavailable [phone] Srinivas Marie DO Unavailable [phone] Encounter Details Date Type Department Care Team (Late st Contact Info) Description 07/26/2019 MyC Medical Advice [address], [address] [place] [address] [place] [address] [place] [address] Social History Tobacco Use Types [...] Sex Assigned at Female 08/17/2018 7:56 AM PRODUCT DEVELOPMENT CARPENTER Legal Sex Female 4:24 AM PRODUCT DEVELOPMENT CARPENTER Gender Identity Female 08/17/2018 7:56 AM PRODUCT DEVELOPMENT CARPENTER Sexual Orientation Straight 08/17/2018 7: 56 AM PRODUCT DEVELOPMENT CARPENTER documented as of this encounter Miscellaneous Notes * Telephone Encounter - Claudia Stoll RN - 07/26/2019 1:20 PM PRODUCT DEVELOPMENT CARPENTER temazepam (RESTORIL) 7.5 MG capsule 90 capsule 0 06/02/2019 No Sig - Route: Take 1 capsule (7.5 mg) by mouth At Bedtime - Oral Sent to pharmacy as: temazepam (RESTORIL) 7.5 MG capsule Class: E-Prescribe Order: [id number] E-Prescribing Status: Receipt confirmed by pharmacy (06/02/2019 ??3:54 PM PRODUCT DEVELOPMENT CARPENTER) Claudia Barsness, RN Flex UCT DEVELOPMENT CARPENTER documented in this encounter Plan of Treatment Upcoming Encounters Date Type Department Care Team (Late st Contact Info) Description 09/07/2024 10:00 AM CDT Office Visit [facility] [address] [place] [phone] Fransisco Eddy MD [address] [place] [address] 03/29/2025 3:40 PM CDT Office Visit [address] [phone] Alfreda Ray PA-C [address] [place] [address] documented as of this encounter Visit Diagnoses Not on filedocumented in this encounter Additional Health Concerns Infection Onset Date Last Indicated Resolved Time Rule Out COVID-19 05/08/2021 05/08/2021 05/09/2021 9:08 PM PRODUCT DEVELOPMENT CARPENTER Assessment Noted Time PHQ-9 Depression Total Score: 1 08/20/19 19 1:44 PM PRODUCT DEVELOPMENT CARPENTER documented as of this encounter Care Teams Seed Buyer Relationship Specialty Start Date End Date Esperanza Gatica MD PCP - General Family Practice 10/13/11 12/29/21 Alfreda Ray PA-C [address] [place] [address] 345402 PCP - General Family Medicine 12/30/21 [place] [address] [place] [address] Assigned PCP 12/05/17 09/30/19 [place] [address] [address] [place]BETH GAFFNEY [address] Assigned PCP 10/01/19 03/02/20 [place] [address] [place] [address] Assigned PCP 03/03/20 05/25/20 [place] [address] [place] GARCIA [address] Assigned PCP 05/26/20 09/28/20 [place] [address] [place] [address] Assigned PCP 09/29/20 07/31/22 Jesú[place] [address] [place], [place] 600[address] Assigned Musculoskeletal Provider 10/20/20 04/17/22 Alfreda Ray PA-C [address] [place] [address] 326092 Referring Physician Family Medicine 12/31/21 Katrin Orellana PA-C [address] [place] [address] 172885 Physician Counter Weigher Dermatology 12/31/21 Shanna Vang PA-C [facility] [address] 489264 Assigned Cancer Care Provider 01/10/22 Fransisco Eddy MD [address] [place] [address] 81824 Assigned Rheumatology Provider 05/09/22 [place] [address] [place] [address] Assigned Pain Medication Provider 06/29/22 09/04/22 [place] [address] [place] [address] Assigned PCP 08/15/22 08/28/22 Katrin Orellana PA-C [address] [place] [address]88 Assigned Surgical Provider 08/15/22 02/10/24 Cristina Hsieh [facility] [address] [place] [address] [place] [address] Pharmacist Pharmacist 09/07/22 Alfreda Ray PA-C [address] [place] [address] 98813 Assigned Pain Medication Provider 09/05/22 09/10/23 Alfreda Ray PA-C [address] [place] [address] 12657 Assigned PCP 08/29/22 Cristina Hsieh [facility] [address] [phone] Assigned MTM Pharmacist 09/26/22 Dakota Tatum MD [address] [place] [address] 739865 Cardiovascular Disease 03/25/23 Dakota Tatum MD [address] [place] [address] 835135 Assigned Heart and Vascular Provider 05/01/23 [place] [address] CELE GASTELUM, [address] [address] Assigned Musculoskeletal Provider 04/12/24 documented as of this encounter
--- OUTSIDE RECORDS SUMMARY | 2024-06-23 00:23 | XMS_ITS | Encounter Summary ---
Author Organization [place] Address [address] [place] [address]458 Care Team Providers Care Public Affairs Manager Name Role Phone Esperanza Gatica MD Primary Care Provider + Esperanza Gatica MD Unavailable + Esperanza Gatica MD Unavailable + Esperanza Gatica MD Unavailable + Esperanza Gatica MD Unavailable + Esperanza Gatica MD Unavailable + Jesús Orourke MD Unavailable Alfreda Ray-C Primary Care Provider + Alfreda Ray-C Unavailable + [phone] Katrin OrellanaC Unavailable +[phone] Shanna Vang-C Unavailable +[phone] Fransisco Eddy MD Unavailable [phone] Esperanza Gatica MD Unavailable + Esperanza Gatica MD Unavailable + Katrin OrellanaC Unavailable +[phone] Cristina Hsieh [facility] Unavailable +60 Alfreda Ray PA-C Unavailable +[phone] Alfreda Ray PA-C Unavailable +[phone] Cristina Hsieh Martin [facility] Unavailable +[phone] Dakota Tatum MD Unavailable +[phone] Dakota Tatum MD Unavailable +[phone] Srinivas Marie Unavailable [phone] Encounter Details Date Type Department Care Team (Late st Contact Info) Description 08/01/2019 MyC Medical Advice [place] 356645 [facility], [address] [place] [address] Chitra López Social History Tobacco [...] Sex Assigned at Female 08/17/2018 7:56 AM TRAVELING STOREKEEPER Legal Sex Female 4:24 AM TRAVELING STOREKEEPER Gender Identity Female 08/17/2018 7:56 AM TRAVELING STOREKEEPER Sexual Orientation Straight 08/17/2018 7: 56 AM TRAVELING STOREKEEPER documented as of this encounter Plan of Treatment Upcoming Encounters Date Type Department Care Team (Late st Contact Info) Description 09/07/2024 10:00 AM CDT Office Visit [facility] [address] [phone] Fransisco Eddy MD [address] [place] [address] 736285 03/29/2025 3:40 PM CDT Office Visit [address] [phone] Alfreda Ray PA-C [address] [place] [address] documented as of this encounter Visit Diagnoses Not on filedocumented in this encounter Additional Health Concerns Infection Onset Date Last Indicated Resolved Time Rule Out COVID-19 05/08/2021 05/08/2021 05/09/2021 9:08 PM TRAVELING STOREKEEPER Assessment Noted Time PHQ-9 Depression Total Score: 1 08/20/19 19 1:44 PM TRAVELING STOREKEEPER documented as of this encounter Care Teams Public Affairs Manager Relationship Specialty Start Date End Date Esperanza Gatica MD PCP - General Family Practice 10/13/11 12/29/21 Alfreda Ray PA-C [address] [place] [address]20 PCP - General Family Medicine 12/30/21 [place] [address] [address] GARCIA [address] Assigned PCP 12/05/17 09/30/19 [place] [address] [place] GARCIA 89173 Assigned PCP 10/01/19 03/02/20 [place] [address] L[place]B[address] GARCIA [address]325 Assigned PCP 03/03/20 05/25/20 [place] [address] [address] GARCIA [address] Assigned PCP 05/26/20 09/28/20 [place] [address] L[place]B[address] GARCIA 82630 Assigned PCP 09/29/20 07/31/22 Jesú[place] [address] [place] [address] Assigned Musculoskeletal Provider 10/20/20 04/17/22 Alfreda Ray PA-C 4151 [place], [place] 296302 Referring Physician Family Medicine 12/31/21 Katrin Orellana PA-C [address] [place] [address] [address] [place], [place] 418265 Physician Dextrine Mixer Dermatology 12/31/21 Shanna Vang PA-C [address] 904784 Assigned Cancer Care Provider 01/10/22 Fransisco Eddy MD [address] [place] [address] [phone] Assigned Rheumatology Provider 05/09/22 [place] [address] [address] GARCIA [address]1009 Assigned Pain Medication Provider 06/29/22 09/04/22 [place] [address] L[place]B[address] GARCIA [address] Assigned PCP 08/15/22 08/28/22 Katrin Orellana PA-C [address] [facility] [address] [place] [address] Assigned Surgical Provider 08/15/22 02/10/24 Cristina Hsieh, [facility] [address] [facility] LISBETH HERNANDEZ [address] Pharmacist Pharmacist 09/07/22 Alfreda Ray PA-C [address] [place] [address] 240272 Assigned Pain Medication Provider 09/05/22 09/10/23 Alfreda Ray PA-C [address] [place] [address] 708012 Assigned PCP 08/29/22 Cristina Hsieh, [facility] [address] [address] Assigned MTM Pharmacist 09/26/22 Dakota Tatum MD [address] [place] [address] 8[address]44 Cardiovascular Disease 03/25/23 Dakota Tatum MD [address] [place] [address] Assigned Heart and Vascular Provider 05/01/23 [place] [address] CELE GASTELUM, [facility] [address] [place] [address] Assigned Musculoskeletal Provider 04/12/24 documented as of this encounter
--- OUTSIDE RECORDS SUMMARY | 2024-06-23 00:23 | XMS_ITS | Encounter Summary ---
Author Organization [facility] Address [address] [place] [address] 16886 Care Team Providers Care Vpk Teacher Name Role Phone Esperanza Gatica MD Primary Care Provider + Esperanza Gatica MD Unavailable + Esperanza Gatica MD Unavailable + Esperanza Gatica MD Unavailable + Esperanza Gatica MD Unavailable + Esperanza Gatica MD Unavailable + Jesús Orourke MD Unavailable Alfreda Ray-C Primary Care Provider + Alfreda Ray-C Unavailable + [phone] Katrin OrellanaC Unavailable +[phone] Shanna Vang-C Unavailable +[phone] Fransisco Eddy MD Unavailable +[phone] Esperanza Gatica MD Unavailable + Esperanza Gatica MD Unavailable + Katrin OrellanaC Unavailable +[phone] Cristina Hsieh [facility] Unavailable +60 Alfreda Ray PA-C Unavailable +[phone] Alfreda Ray PA-C Unavailable +[phone] Cristina Hsieh [facility] Unavailable +[phone] Dakota Tatum MD Unavailable +[phone] Dakota Tatum MD Unavailable +[phone] Srinivas Marie DO Unavailable +[phone] Reason for Visit * Reason Onset Date Comments Refill Request 08/01/2019 Encounter Details Date Type Department Care Team (Late st Contact Info) Description 08/01/2019 MyC Refill [address], [address] [place] [address] [place] [address] [place] [address] Refill Request Social History Tobacco [...] Sex Assigned at Female 08/17/2018 7:56 AM RECREATION THERAPY TEACHER Legal Sex Female 4:24 AM RECREATION THERAPY TEACHER Gender Identity Female 08/17/2018 7:56 AM RECREATION THERAPY TEACHER Sexual Orientation Straight 08/17/2018 7: 56 AM RECREATION THERAPY TEACHER documented as of this encounter Miscellaneous Notes * Telephone Encounter - Yuliet Barrera RN - 08/02/2019 7:20 PM CST Last Written Prescription Date: 06.02.19 #90 Restoril 08.01.2019 #90 Tramadol Last Fill Quantity: , # refills: Last office visit: 02/21/2019 with prescribing provider: En Future Office Visit: Next 5 appointments (look out 90 days) Sep 15, 2019 9:20 AM CDT PHYSICAL with Esperanza Gaitca MD [facility], [address] [facility] [address] Requested Prescriptions Pending Prescriptions Disp Refills [...] for review/approval because: Drug not on the [facility] refill protocol EATION THERAPY TEACHER documented in this encounter Plan of Treatment Upcoming Encounters Date Type Department Care Team (Late st Contact Info) Description 09/07/2024 10:00 AM CDT Office Visit [facility] Specialty [address] [phone] Fransisco Eddy MD [address] [place] [address] 260605 03/29/2025 3:40 PM CDT Office Visit [address] [phone] Alfreda Ray PA-C [address] [place] [address] 848752 documented as of this encounter Visit Diagnoses Diagnosis Insomnia, unspecified type Primary osteoarthritis involving multiple joints documented in this encounter Additional Health Concerns Infection Onset Date Last Indicated Resolved Time Rule Out COVID-19 05/08/2021 05/08/2021 05/09/2021 9:08 PM RECREATION THERAPY TEACHER Assessment Noted Time PHQ-9 Depression Total Score: 1 08/20/19 19 1:44 PM RECREATION THERAPY TEACHER documented as of this encounter Care Teams Vpk Teacher Relationship Specialty Start Date End Date Esperanza Gatica MD PCP - General Family Practice 10/13/11 12/29/21 Alfreda Ray PA-C [address] [place] [address] 30989 PCP - General Family Medicine 12/30/21 [place] [address] [place] [address] Assigned PCP 12/05/17 09/30/19 [place] [address] [place] [address] Assigned PCP 10/01/19 03/02/20 [place] [address] [place] [address] Assigned PCP 03/03/20 05/25/20 [place] [address] [place] [address] Assigned PCP 05/26/20 09/28/20 [place] [address] [place] [address] Assigned PCP 09/29/20 07/31/22 Jesú[place] [address] [place] [address] Assigned Musculoskeletal Provider 10/20/20 04/17/22 Alfreda Ray PA-C [address]151 [place] [address] Referring Physician Family Medicine 12/31/21 Katrin Orellana PA-C [address] [address] Physician [place] Or Nursery Transplanter Dermatology 12/31/21 Shanna Vang PA-C [address] [address] Assigned Cancer Care Provider 01/10/22 Fransisco Eddy MD [address] [place] [address] [phone] Assigned Rheumatology Provider 05/09/22 [place] [address] [place] [address] Assigned Pain Medication Provider 06/29/22 09/04/22 [place] [address] [place] [address] Assigned PCP 08/15/22 08/28/22 Katrin Orellana PA-C [address] [place] [address] Assigned Surgical Provider 08/15/22 02/10/24 Cristina Hsieh [facility] [address] [facility] L[place]BETH HERNANDEZ [address] Pharmacist Pharmacist 09/07/22 Alfreda Ray PA-C [address] [place] [address]145 Assigned Pain Medication Provider 09/05/22 09/10/23 Alfreda Ray PA-C [address] [place] [address]1727 Assigned PCP 08/29/22 Cristina Hsieh, [facility] [address] [place] [address] 26826 Assigned MTM Pharmacist 09/26/22 Dakota Tatum MD [address] [place] [address] Cardiovascular Disease 03/25/23 Dakota Tatum MD [address] [place] [address] 90874 Assigned Heart and Vascular Provider 05/01/23 [place] [address] [address] , [address] [address] Assigned Musculoskeletal Provider 04/12/24 documented as of this encounter
--- OUTSIDE RECORDS SUMMARY | 2024-06-23 00:23 | XMS_ITS | Encounter Summary ---
Author Organization [facility] Address [address] [place] [address] 416[address] Care Team Providers Care Telephone Lineworker Name Role Phone Kelly Haley MD Primary Care Provider + Kelly Haley MD Unavailable + Kelly Haley MD Unavailable + Kelly Haley MD Unavailable + Kelly Haley MD Unavailable + Kelly Haley MD Unavailable + Jesús Orourke MD Unavailable Alfreda Ray-C Primary Care Provider + Alfreda Ray-C Unavailable + [phone] Katrin OrellanaC Unavailable +[phone] Shanna Vang-C Unavailable +[phone] Fransisco Eddy MD Unavailable [phone] Kelly Haley MD Unavailable + Kelly Haley MD Unavailable + Katrin OrellanaC Unavailable +[phone] Cristina Hsieh [facility] Unavailable +60 Ray, Alfreda Liu PA-C Unavailable +[phone] Cory Alfreda Liu PA-C Unavailable +[phone] Cristina Hsieh [facility] Unavailable +[phone] Dakota Tatum MD Unavailable +[phone] Dakota Tatum MD Unavailable [phone] Srinivas Marie DO Unavailable [phone] Reason for Visit * Reason Onset Date Comments Medication Refill 05/01/2019 traMADol (ULTR AM) 50 MG tablet Encounter Details Date Type Department Care Team (Late st Contact Info) Description 04/30/[address], [address] [place] [address] [place] [address] [place] [address] Medication Refill (traMADol (ULTRAM) 50 [...] Sex Assigned at Female 08/17/2018 7:56 AM BURR PICKER Legal Sex Female 4:24 AM BURR PICKER Gender Identity Female 08/17/2018 7:56 AM BURR PICKER Sexual Orientation Straight 08/17/2018 7: 56 AM BURR PICKER documented as of this encounter Miscellaneous Notes * Telephone Encounter - Leigha Rinaldi RN - 05/02/2019 8:40 AM CST Images from the original note were not included. INKJET OPERATOR checked 05/02/2019: Leigha Rinaldi RN PICKER * Telephone Encounter - Diya Stone - [...] Score(s): No flowsheet data found. ?? Last [facility] website verification: Done 03.16.18 Last Written Prescription Date: 04/05/19 Last Fill Quantity: 90, # refills: 0 THE MOST RECENT OFFICE VISIT MUST BE WITHIN THE PAST 3 MONTHS. AT LEAST ONE FACE TO FACE VISIT MUSTOCCUR EVERY 6 MONTHS. ADDITIONAL VISITS CAN BE VIRTUAL. (THIS STATEMENT SHOULD BE DELETED.) Last Office Visit with [facility] primary care provider: 02/21/2019 Future Office visit: [...] OXY13, PPX13, BUP13 Processing: Fax Rx to [facility] pharmacy [email or web address] INKJET OPERATOR checked in past 3 months? No, route to RN 06/17/18 PICKER documented in this encounter Plan of Treatment Upcoming Encounters Date Type Department Care Team (Late st Contact Info) Description 09/07/2024 10:00 AM CDT Office Visit [facility] [address] [place] [phone] Fransisco Eddy MD [address] [place] [address] 03/29/2025 3:40 PM CDT Office Visit [address] [phone] Alfreda Ray PA-C [address] [place] [address] [phone] documented as of this encounter Visit Diagnoses Diagnosis Primary osteoarthritis involving multiple joints documented in this encounter Additional Health Concerns Infection Onset Date Last Indicated Resolved Time Rule Out COVID-19 05/08/2021 05/08/2021 05/09/2021 9:08 PM BURR PICKER Assessment Noted Time PHQ-9 Depression Total Score: 1 08/20/19 19 1:44 PM BURR PICKER documented as of this encounter Care Teams Telephone Lineworker Relationship Specialty Start Date End Date Kelly Haley MD PCP - General Family Practice 10/13/11 12/29/21 Alfreda Ray PA-C [address] [place] [address] 626122 PCP - General Family Medicine 12/30/21 [place] [address] [place]ARCIA [address] Assigned PCP 12/05/17 09/30/19 [place] [address] [place] [address] Assigned PCP 10/01/19 03/02/20 [place] [address] [place] [address] Assigned PCP 03/03/20 05/25/20 [place] [address] [place] [address] Assigned PCP 05/26/20 09/28/20 [place] [address] [place] [address] Assigned PCP 09/29/20 07/31/22 Jesú[place] [address] [address] Assigned Musculoskeletal Provider 10/20/20 04/17/22 Alfreda Ray PA-C [address] [place] [address] 536062 Referring Physician Family Medicine 12/31/21 Katrin Orellana PA-C [address] [place] [address] 244125 Physician Room Service Server Dermatology 12/31/21 Shanna Vang PA-C [address] [place] [address] 030024 Assigned Cancer Care Provider 01/10/22 Fransisco Eddy MD [address] [place] [address] [phone] Assigned Rheumatology Provider 05/09/22 [place] [address] [address] [place] [address] Assigned Pain Medication Provider 06/29/22 09/04/22 [place] [address] [place] [address] Assigned PCP 08/15/22 08/28/22 Katrin Orellana PA-C [address] [place] [address] 15785 Assigned Surgical Provider 08/15/22 02/10/24 Cristina Hsieh [facility] [address] [place] [address] LISBETH HERNANDEZ [address] Pharmacist Pharmacist 09/07/22 Alfreda Ray PA-C [address] [place] [address] 037942 Assigned Pain Medication Provider 09/05/22 09/10/23 Alfreda Ray PA-C [address] [place] [address] 48408 Assigned PCP 08/29/22 Cristina Hsieh [facility] [address] [phone] Assigned MTM Pharmacist 09/26/22 Dakota Tatum MD [address] [place] [address]147 Cardiovascular Disease 03/25/23 Dakota Tatum MD [address] [place], [place] 435775 Assigned Heart and Vascular Provider 05/01/23 [place] [address] [address], [address] [address] Assigned Musculoskeletal Provider 04/12/24 documented as of this encounter
--- OUTSIDE RECORDS SUMMARY | 2024-06-23 00:24 | XMS_ITS | Encounter Summary ---
Author Organization [facility] Address [address] [place] [address] Care Team Providers Care Flour Worker Name Role Phone Esperanza Gatica MD Primary Care Provider + Esperanza Gatica MD Unavailable + Esperanza Gatica MD Unavailable + Esperanza Gatica MD Unavailable + Esperanza Gatica MD Unavailable + Esperanza Gatica MD Unavailable + Jesús Orourke MD Unavailable Alfreda Ray-C Primary Care Provider + Alfreda Ray-C Unavailable + [phone] Katrin OrellanaC Unavailable +[phone] Shanna Vang-C Unavailable +[phone] Fransisco Eddy MD Unavailable [phone] Esperanza Gatica MD Unavailable + Esperanza Gatica MD Unavailable + Katrin OrellanaC Unavailable +[phone] Cristina Hsieh [facility] Unavailable +60 Ray, Alfreda Liu PA-C Unavailable +[phone] Ray, Alfreda Liu PA-C Unavailable +[phone] Cristina Hsieh [facility] Unavailable +[phone] LaDakota guerra MD Unavailable +[phone] LaDakota guerra MD Unavailable +[phone] Srinivas Marie DO Unavailable [phone] Reason for Visit * Reason Onset Date Comments MyChart Communication 10/04/2018 Encounter Details Date Type Department Care Team (Late st Contact Info) Description 10/04/2018 MyC Medical Advice [address], [address] [place] [address] [place] [address] [place] [address] MyChart Communication Social History Tobacco [...] Sex Assigned at Female 08/17/2018 7:56 AM MASONRY CONTRACTOR ADMINISTRATOR Legal Sex Female 4:24 AM MASONRY CONTRACTOR ADMINISTRATOR Gender Identity Female 08/17/2018 7:56 AM MASONRY CONTRACTOR ADMINISTRATOR Sexual Orientation Straight 08/17/2018 7: 56 AM MASONRY CONTRACTOR ADMINISTRATOR documented as of this encounter Plan of Treatment Upcoming Encounters Date Type Department Care Team (Late st Contact Info) Description 09/07/2024 10:00 AM CDT Office Visit [address] [place] [address] Fransisco Eddy MD [address] [place] [address] 03/29/2025 3:40 PM CDT Office Visit [address] [phone] Alfreda Ray PA-C [address] [place] [address] 910042 documented as of this encounter Visit Diagnoses Not on filedocumented in this encounter Additional Health Concerns Infection Onset Date Last Indicated Resolved Time Rule Out COVID-19 05/08/2021 05/08/2021 05/09/2021 9:08 PM MASONRY CONTRACTOR ADMINISTRATOR Assessment Noted Time PHQ-9 Depression Total Score: 1 08/20/19 19 1:44 PM MASONRY CONTRACTOR ADMINISTRATOR documented as of this encounter Care Teams Flour Worker Relationship Specialty Start Date End Date Esperanza Gatica MD PCP - General Family Practice 10/13/11 12/29/21 Alfreda Ray PA-C [address] [place] [address] [phone] PCP - General Family Medicine 12/30/21 [place] [address] [place] [address] Assigned PCP 12/05/17 09/30/19 [place] [address] [place] [address] Assigned PCP 10/01/19 03/02/20 [place] [address] [place] [place] [address] Assigned PCP 03/03/20 05/25/20 [place] [address] [place] [address] Assigned PCP 05/26/20 09/28/20 [place] [address] [place] [address] Assigned PCP 09/29/20 07/31/22 Jesú[place] [address] [facility] [place] [address] Assigned Musculoskeletal Provider 10/20/20 04/17/22 Alfreda Ray PA-C [address] [place] [address] 954152 Referring Physician Family Medicine 12/31/21 Katrin Orellana PA-C [address] [place] [address] 98 [place], [place] 770695 Physician Broacher Dermatology 12/31/21 Shanna Vang PA-C [address] [place] [address] 364604 Assigned Cancer Care Provider 01/10/22 Fransisco Eddy MD [address] [place] [address] [phone] Assigned Rheumatology Provider 05/09/22 [place] [address] [place] [address] Assigned Pain Medication Provider 06/29/22 09/04/22 [place] [address] [place] [address] Assigned PCP 08/15/22 08/28/22 Katrin Orellana PA-C [address] [place] [address] 98 [place], [place] 995215 Assigned Surgical Provider 08/15/22 02/10/24 Cristina Hsieh [facility] [address] [facility] [place]NANDEZ [address] Pharmacist Pharmacist 09/07/22 Alfreda Ray PA-C [address] [place] [address] 143892 Assigned Pain Medication Provider 09/05/22 09/10/23 Alfreda Ray PA-C [address] [place] [address] 040022 Assigned PCP 08/29/22 Cristina Hsieh [facility] [address] [address] Assigned MTM Pharmacist 09/26/22 Dakota Tatum MD [address] [place] [address] 791985 Cardiovascular Disease 03/25/23 Dakota Tatum MD [address] [place] [address] Assigned Heart and Vascular Provider 05/01/23 [place] [address] CE[address], [address] [address] Assigned Musculoskeletal Provider 04/12/24 documented as of this encounter
--- OUTSIDE RECORDS SUMMARY | 2024-06-23 00:24 | XMS_ITS | Encounter Summary ---
Author Organization [facility] Address [address] [place] [address] Care Team Providers Care Single Fold Machine Operator Name Role Phone Esperanza Gatica MD Primary Care Provider + Esperanza Gatica MD Unavailable +[phone] Esperanza Gatica MD Unavailable +[phone] Esperanza Gatica MD Unavailable +674 Esperanza Gatica MD Unavailable +[phone] Esperanza Gtaica MD Unavailable +390 Esperanza Gatica MD Unavailable +[phone] Jesús Orourke MD Unavailable Alfreda RayC Primary Care Provider + Alfreda Ray PA-C Unavailable + [phone] Katrin Orellana PA-C Unavailable +[phone] Shanna VangC Unavailable +[phone] Fransisco Eddy MD Unavailable +[phone] Esperanza Gatica MD Unavailable +[phone] Esperanza Gatica MD Unavailable +[phone] Katrin Orellana PA-C Unavailable Cristina Hsieh [facility] Unavailable Cory Alfreda Liu PA-C Unavailable +[phone] Ho Raymustapha Liu PA-C Unavailable +[phone] Cristina Hsieh [facility] Unavailable +[phone] Dakota Tatum MD Unavailable Dakota Tatum MD Unavailable Srinivas Marie DO Unavailable [phone] Reason for Visit * Reason Onset Date Comments Prior Auth - Medication 10/14/2017 Temazepa m Encounter Details Date Type Department Care Team (Late st Contact Info) Description 10/14/2017 MyC Medical Advice M [address], [facility] [address] [place] [address] [place] [address] [place] [address] Prior Auth - Medication (Temazepam) [...] Sex Assigned at Female 08/17/2018 7:56 AM CELL TUBER MACHINE Legal Sex Female 4:24 AM CELL TUBER MACHINE Gender Identity Female 08/17/2018 7:56 AM CELL TUBER MACHINE Sexual Orientation Straight 08/17/2018 7: 56 AM CELL TUBER MACHINE documented as of this encounter Miscellaneous Notes [...] 7:30 AM CDT Prior auth submitted via mPowa. Can call to check the status. Was advised it can take up to 1-3 days. Leigha Rinaldi RN documented in this encounter Plan of Treatment Upcoming Encounters Date Type Department Care Team (Late st Contact Info) Description 09/07/2024 10:00 AM CDT Office Visit [address] [phone] Fransisco Eddy MD [address] [place] [address] 673905 03/29/2025 3:40 PM CDT Office Visit [address] [phone] Alfreda Ray PA-C [address] [place] [address] 366112 documented as of this encounter Visit Diagnoses Not on filedocumented in this encounter Additional Health Concerns Infection Onset Date Last Indicated Resolved Time Rule Out COVID-19 05/08/2021 05/08/2021 05/09/2021 9:08 PM CELL TUBER MACHINE Assessment Noted Time PHQ-9 Depression Total Score: 0 08/18/19 17 7:09 AM CELL TUBER MACHINE documented as of this encounter Care Teams Single Fold Machine Operator Relationship Specialty Start Date End Date Esperanza Gatica MD PCP - General Family Practice 10/13/11 12/29/21 [place] [address] [place] [address] PCP - Assigned PCP 12/05/17 08/23/18 Alfreda Ray PA-C [address] [place] [address] PCP - General Family Medicine 12/30/21 [place] [address] [place] [address] Assigned PCP 12/05/17 09/30/19 [place] [address] [place] [address] Assigned PCP 10/01/19 03/02/20 [place] [address] [place] [address] Assigned PCP 03/03/20 05/25/20 [place] [address] [place] [address] Assigned PCP 05/26/20 09/28/20 [place] [address] [place] [address] Assigned PCP 09/29/20 07/31/22 Jesú[place] [address] [place] [address] [place] [address] Assigned Musculoskeletal Provider 10/20/20 04/17/22 Alfreda Ray PA-C [address] [place] [address] 168772 Referring Physician Family Medicine 12/31/21 Katrin Orellana PA-C [address] [place] [address] [phone] Physician Manager Implementation Dermatology 12/31/21 Shanna Vang PA-C [address] 444024 Assigned Cancer Care Provider 01/10/22 Fransisco Eddy MD [address] [place] [address] 299845 Assigned Rheumatology Provider 05/09/22 [place] [address] [place] [place]ARC[place] [address] Assigned Pain Medication Provider 06/29/22 09/04/22 [place] [address] [place] [place] [address] Assigned PCP 08/15/22 08/28/22 Katrin Orellana PA-C [address] [place] [address] 417645 Assigned Surgical Provider 08/15/22 02/10/24 Cristina Hsieh, [facility] [address] [facility] [place] HERNANDEZ [address] Pharmacist Pharmacist 09/07/22 Alfreda Ray PA-C [address] [place] [address] 411572 Assigned Pain Medication Provider 09/05/22 09/10/23 Alfreda Ray PA-C [address] [place] [address] 855222 Assigned PCP 08/29/22 Cristina Hsieh [facility] [address] [address] Assigned MTM Pharmacist 09/26/22 Dakota Tatum MD [address] [place] [address] Cardiovascular Disease 03/25/23 Dakota Tatum MD [address] [place] [address] Assigned Heart and Vascular Provider 05/01/23 [place] [address] [address] , [facility] [address] [place] [address] Assigned Musculoskeletal Provider 04/12/24 documented as of this encounter
--- OUTSIDE RECORDS SUMMARY | 2024-06-23 00:24 | XMS_ITS | Encounter Summary ---
Author Organization [place] Address [address] [place] [address] 21813 Care Team Providers Care Physics And Astronomy Professor Name Role Phone Esperanza Gatica MD Primary Care Provider + Esperanza Gatica MD Unavailable +[phone] Esperanza Gatica MD Unavailable +[phone] Esperanza Gatica MD Unavailable +[phone] Esperanza Gatica MD Unavailable +[phone] Esperanza Gatica MD Unavailable +[phone] Esperanza Gatica MD Unavailable +[phone] Jesús Orourke MD Unavailable Alfreda RayC Primary Care Provider + Alfreda Ray PA-C Unavailable + [phone] Katrin Orellana PA-C Unavailable +[phone] Shanna VangC Unavailable +[phone] Fransisco Eddy MD Unavailable +[phone] Esperanza Gatica MD Unavailable +[phone] Esperanza Gatica MD Unavailable +[phone] Katrin Orellana PA-C Unavailable Cristina Hsieh [facility] Unavailable RayAlfreda PA-C Unavailable [phone] Cory Alfreda Liu PA-C Unavailable [phone] Cristina Hsieh [facility] Unavailable Dakota Tatum MD Unavailable Dakota Tatum MD Unavailable Srinivas Marie DO Unavailable [phone] Encounter Details Date Type Department Care Team (Late st Contact Info) Description 12/16/2017 MyC Medical Advice [address], [address] [place] [address] [place] [address] [place] [address] Social History Tobacco Use Types [...] Sex Assigned at Female 08/17/2018 7:56 AM HEALTH AND SOCIAL CARE TEACHER Legal Sex Female 4:24 AM HEALTH AND SOCIAL CARE TEACHER Gender Identity Female 08/17/2018 7:56 AM HEALTH AND SOCIAL CARE TEACHER Sexual Orientation Straight 08/17/2018 7: 56 AM HEALTH AND SOCIAL CARE TEACHER documented as of this encounter Plan of Treatment Upcoming Encounters Date Type Department Care Team (Late st Contact Info) Description 09/07/2024 10:00 AM CDT Office Visit [facility] [address] [address] Fransisco Eddy MD [address] [place] [address] 03/29/2025 3:40 PM CDT Office Visit [address] [phone] Alfreda Ray PA-C [address] [place] [address] [id number] documented as of this encounter Visit Diagnoses Not on filedocumented in this encounter Additional Health Concerns Infection Onset Date Last Indicated Resolved Time Rule Out COVID-19 05/08/2021 05/08/2021 05/09/2021 9:08 PM HEALTH AND SOCIAL CARE TEACHER Assessment Noted Time PHQ-9 Depression Total Score: 1 12/01/19 18 7:11 AM CDT documented as of this encounter Care Teams Physics And Astronomy Professor Relationship Specialty Start Date End Date Esperanza Gatica MD PCP - General Family Practice 10/13/11 12/29/21 [place] [address] [address] GARCIA [address] PCP - Assigned PCP 12/05/17 08/23/18 Alfreda Ray PA-C [address] [place] [address] 09162 PCP - General Family Medicine 12/30/21 [place] [address] [address]ARCIA [address] Assigned PCP 12/05/17 09/30/19 [place] [address] [address]ARCIA [address] Assigned PCP 10/01/19 03/02/20 [place] [address] [place] [address] Assigned PCP 03/03/20 05/25/20 [place] [address] [place] [address] Assigned PCP 05/26/20 09/28/20 [place] [address] [place] [address] Assigned PCP 09/29/20 07/31/22 Jesú[place] [address] [place] [address] Assigned Musculoskeletal Provider 10/20/20 04/17/22 Alfreda Ray PA-C [address] [place] [address] [phone] Referring Physician Family Medicine 12/31/21 Katrin Orellana PA-C [address] [place] [address] [phone] Physician Branch Or Department Chief Librarian Dermatology 12/31/21 Shanna Vang PA-C [address] [place] [address] Assigned Cancer Care Provider 01/10/22 Fransisco Eddy MD [address] [place] [address] 416395 Assigned Rheumatology Provider 05/09/22 [place] [address] [place] [address] Assigned Pain Medication Provider 06/29/22 09/04/22 [place] [address] [place] [address] Assigned PCP 08/15/22 08/28/22 Katrin Orellana PA-C [address] [place] [address] [address] [place], [place] 625085 Assigned Surgical Provider 08/15/22 02/10/24 Cristina Hsieh, [facility] [address] [place] [address] Pharmacist Pharmacist 09/07/22 Alfreda Ray PA-C [address] [place] [address] [phone] Assigned Pain Medication Provider 09/05/22 09/10/23 Alfreda Ray PA-C [address] [place] [address] 564[address] Assigned PCP 08/29/22 Cristina Hsieh, [facility] [address] [address] Assigned MTM Pharmacist 09/26/22 Dakota Tatum MD [address] [place] [address]312 Cardiovascular Disease 03/25/23 Dakota Tatum MD [address] [place] [address] Assigned Heart and Vascular Provider 05/01/23 [place] [address] [address], [address] [address] Assigned Musculoskeletal Provider 04/12/24 documented as of this encounter
--- OUTSIDE RECORDS SUMMARY | 2024-06-23 00:24 | XMS_ITS | Encounter Summary ---
Author Organization [place] Address [address] [place] [address]238 Care Team Providers Care Expeller Operator Name Role Phone Esperanza Gatica MD Primary Care Provider + Esperanza Gatica MD Unavailable +[phone] Esperanza Gatica MD Unavailable +[phone] Esperanza Gatica MD Unavailable +[phone] Esperanza Gatica MD Unavailable +[phone] Esperanza Gaitca MD Unavailable +[phone] Esperanza Gatica MD Unavailable +[phone] Jesús Orourke MD Unavailable Alfreda RayC Primary Care Provider + Alfreda Ray PA-C Unavailable + [phone] Katrin Orellana PA-C Unavailable +[phone] Shanna VangC Unavailable +[phone] Fransisco Eddy MD Unavailable +[phone] Esperanza Gatica MD Unavailable +[phone] Esperanza Gatica MD Unavailable +[phone] Katrin Orellana PA-C Unavailable Cristina Hsieh [facility] Unavailable RayAlfreda PA-C Unavailable +[phone] Cory Alfreda Liu PA-C Unavailable +[phone] Cristina Hsieh [facility] Unavailable +[phone] Dakota Tatum MD Unavailable [phone] Dakota Tatum MD Unavailable [phone] Srinivas Marie DO Unavailable [phone] Reason for Visit * Reason Onset Date Comments Medication Refill 07/27/2018 gabapentin (NE URONTIN) 100 MG capsule Encounter Details Date Type Department Care Team (Late st Contact Info) Description 07/26/[address], [address] [place] [address] [place] [address] [place] [address] Medication Refill (gabapentin (NEURONTIN) 100 [...] Sex Assigned at Female 08/17/2018 7:56 AM RESTAURANT HOST Legal Sex Female 4:24 AM RESTAURANT HOST Gender Identity Female 08/17/2018 7:56 AM RESTAURANT HOST Sexual Orientation Straight 08/17/2018 7: 56 AM RESTAURANT HOST documented as of this encounter Miscellaneous Notes * Telephone Encounter - WhitakerYohan - 07/26/2018 5:59 PM CST gabapentin (NEURONTIN) 100 MG capsule Last Written Prescription Date: 05/05/18 Last Fill Quantity: 180 CAPSULE, # refills: 0 Last Office Visit: 04/04/18 WITH TERA Future Office visit: Next 5 appointments (look out 90 days) Aug 19, 2018 11:00 AM RESTAURANT HOST PHYSICAL with Esperanza Gatica MD [facility] ([facility] [phone] [place] [address] [address] [facility] [phone] Routing refill request to provider for review/approval because: Drug not on the [facility], [facility] or Health refill protocol or controlled substance AURANT HOST documented in this encounter Plan of Treatment Upcoming Encounters Date Type Department Care Team (Late st Contact Info) Description 09/07/2024 10:00 AM CDT Office Visit [facility] [address] [place] [phone] Fransisco Edyd MD [address] [place] [address] 835805 03/29/2025 3:40 PM CDT Office Visit [address] [phone] Alfreda Ray PA-C [address] [place] [address] 210922 documented as of this encounter Visit Diagnoses Diagnosis Primary osteoarthritis involving multiple joints documented in this encounter Additional Health Concerns Infection Onset Date Last Indicated Resolved Time Rule Out COVID-19 05/08/2021 05/08/2021 05/09/2021 9:08 PM RESTAURANT HOST Assessment Noted Time PHQ-9 Depression Total Score: 1 04/05/20 18 7:16 AM CDT documented as of this encounter Care Teams Expeller Operator Relationship Specialty Start Date End Date Esperanza Gatica MD PCP - General Family Practice 10/13/11 12/29/21 [place] [address] [place] [address] PCP - Assigned PCP 12/05/17 08/23/18 Alfreda Ray PA-C [address] [facility] [place] [address] PCP - General Family Medicine 12/30/21 [place] [address] [place] [address] Assigned PCP 12/05/17 09/30/19 [place] [address] [place] [address] Assigned PCP 10/01/19 03/02/20 [place] [address] [place] [address] Assigned PCP 03/03/20 05/25/20 [place] [address] [place] [address] Assigned PCP 05/26/20 09/28/20 [place] [address] [address] [place] [address] Assigned PCP 09/29/20 07/31/22 Jesú[place] [address] [place] [address] Assigned Musculoskeletal Provider 10/20/20 04/17/22 Alfreda Ray PA-C [address] [place] [address] 116252 Referring Physician Family Medicine 12/31/21 Katrin Orellana PA-C [address] [place] [address] 707365 Physician Quality Control Supervisor Dermatology 12/31/21 Shanna Vang PA-C [address] [place] [address] [phone] Assigned Cancer Care Provider 01/10/22 Fransisco Eddy MD [address] [place] [address] 953995 Assigned Rheumatology Provider 05/09/22 [place] [address] [address] GARCIA [address] Assigned Pain Medication Provider 06/29/22 09/04/22 [place] [address] [address] [address] Assigned PCP 08/15/22 08/28/22 Katrin Orellana PA-C [address] [place] [address] [phone] Assigned Surgical Provider 08/15/22 02/10/24 Cristina Hsieh [facility] [address] [facility] LISBETH HERNANDEZ [address] Pharmacist Pharmacist 09/07/22 Alfreda Ray PA-C [address] [place] [address] Assigned Pain Medication Provider 09/05/22 09/10/23 Alfreda Ray PA-C [address] [place] [address] Assigned PCP 08/29/22 Cristina Hsieh, [facility] [address] [address] Assigned MTM Pharmacist 09/26/22 Dakota Tatum MD [address] [place] [address] Cardiovascular Disease 03/25/23 Dakota Tatum MD [address] [place] [address] 738205 Assigned Heart and Vascular Provider 05/01/23 [place] [address] [place] , [address] [address] Assigned Musculoskeletal Provider 04/12/24 documented as of this encounter
--- OUTSIDE RECORDS SUMMARY | 2024-06-23 00:24 | XMS_ITS | Encounter Summary ---
Author Organization [place] Address [address] [place] [address] Care Team Providers Care Medical Physicist Name Role Phone Esperanza Gtaica MD Primary Care Provider + Esperanza Gatica MD Unavailable + Esperanza Gatica MD Unavailable + Esperanza Gatica MD Unavailable + Esperanza Gatica MD Unavailable + Esperanza Gatica MD Unavailable + Jesús Orourke MD Unavailable Alfreda Ray-C Primary Care Provider + Alfreda Ray-C Unavailable + [phone] Katrin OrellanaC Unavailable +[phone] Shanna Vang-C Unavailable +[phone] Fransisco Eddy MD Unavailable [phone] Esperanza Gatica MD Unavailable + Esperanza Gatica MD Unavailable + Katrin OrellanaC Unavailable +[phone] Cristina Hsieh [facility] Unavailable +[phone] Ho Raymustapha Liu PA-C Unavailable +[phone] Ray, Alfreda Liu PA-C Unavailable +[phone] Cristina Hsieh [facility] Unavailable +[phone] Dakota Tatum MD Unavailable +[phone] Dakota Tatum MD Unavailable [phone] Srinivas Marie DO Unavailable [phone] Reason for Visit * Reason Onset Date Comments Medication Question 09/19/2018 Gabapentin d osing Encounter Details Date Type Department Care Team (Late st Contact Info) Description 09/19/2018 MyC Medical Advice [address], [address] [place] [address] [place] [address] [place] [address] Medication Question (Gabapentin dosing) Social [...] Sex Assigned at Female 08/17/2018 7:56 AM FONDANT MACHINE OPERATOR Legal Sex Female 4:24 AM FONDANT MACHINE OPERATOR Gender Identity Female 08/17/2018 7:56 AM FONDANT MACHINE OPERATOR Sexual Orientation Straight 08/17/2018 7: 56 AM FONDANT MACHINE OPERATOR documented as of this encounter [...] Office Visit [facility] [address] [place] [phone] Fransisco Eddy MD [address] [place] [address] 581725 03/29/2025 3:40 PM CDT Office Visit [address] [phone] Alfreda Ray PA-C [address] [place] [address] [phone] documented as of this encounter Visit Diagnoses Not on filedocumented in this encounter Additional Health Concerns Infection Onset Date Last Indicated Resolved Time Rule Out COVID-19 05/08/2021 05/08/2021 05/09/2021 9:08 PM FONDANT MACHINE OPERATOR Assessment Noted Time PHQ-9 Depression Total Score: 1 08/20/19 19 1:44 PM FONDANT MACHINE OPERATOR documented as of this encounter Care Teams Medical Physicist Relationship Specialty Start Date End Date Esperanza Gatica MD PCP - General Family Practice 10/13/11 12/29/21 Alfreda Ray PA-C [address] [place] [address] [phone] PCP - General Family Medicine 12/30/21 [place] [address] [place] [address] Assigned PCP 12/05/17 09/30/19 [place] [address] [place] [address] Assigned PCP 10/01/19 03/02/20 [place] [address] [place] [address] Assigned PCP 03/03/20 05/25/20 [place] [address] [place] [address] Assigned PCP 05/26/20 09/28/20 [place] [address] [place] [address] Assigned PCP 09/29/20 07/31/22 Jesú[place] [address] [place] [address] Assigned Musculoskeletal Provider 10/20/20 04/17/22 Alfreda Ray PA-C [address] [place] [address] 999792 Referring Physician Family Medicine 12/31/21 Katrin Orellana PA-C [address] [place] [address] Physician Vamp Presser Dermatology 12/31/21 BernShanna Amos PA-C [address] [place] [address] Assigned Cancer Care Provider 01/10/22 Fransisco Eddy MD [address] [place] [address] 88 [place] [address] Assigned Rheumatology Provider 05/09/22 [place] [address] [place] [address] Assigned Pain Medication Provider 06/29/22 09/04/22 [place] [address] [place] [address] Assigned PCP 08/15/22 08/28/22 Katrin Orellana PA-C [address] [place] [address] 98 [place] [address] Assigned Surgical Provider 08/15/22 02/10/24 Cristina Hsieh, [facility] [address] [facility] LISBETH HERNANDEZ [address] Pharmacist Pharmacist 09/07/22 Alfreda Ray PA-C [address] [place] [address] 537312 Assigned Pain Medication Provider 09/05/22 09/10/23 Alfreda Ray PA-C [address] [place] [address] Assigned PCP 08/29/22 Cristina Hsieh, [facility] [address] [facility] [address] [place] [address] Assigned MTM Pharmacist 09/26/22 Dakota Tatum MD [address] [place] [address] [phone] Cardiovascular Disease 03/25/23 Dakota Tatum MD [address] [place] [address] 859195 Assigned Heart and Vascular Provider 05/01/23 [place] [address] [address], [facility] [address] [place] [address] Assigned Musculoskeletal Provider 04/12/24 documented as of this encounter
--- OUTSIDE RECORDS SUMMARY | 2024-06-23 00:24 | XMS_ITS | Encounter Summary ---
Author Organization [place] Address [address] [place] [address] Care Team Providers Care Veneer Press Operator Name Role Phone Esperanza Gatica MD Primary Care Provider + Esperanza Gatica MD Unavailable +[phone] Esperanza Gatica MD Unavailable +[phone] Esperanza Gatica MD Unavailable +[phone] Esperanza Gatica MD Unavailable +570 Esperanza Gatica MD Unavailable +[phone] Esperanza Gatica MD Unavailable +[phone] Jesús Orourke MD Unavailable Alfreda RayC Primary Care Provider + Alfreda Ray PA-C Unavailable + [phone] Katrin Orellana PA-C Unavailable [phone] Shanna VangC Unavailable +[phone] Fransisco Eddy MD Unavailable +[phone] Esperanza Gatica MD Unavailable +[phone] Esperanza Gatica MD Unavailable +[phone] Katrin Orellana PA-C Unavailable Cristina Hsieh [facility] Unavailable Alfreda Ray Alexa KING Unavailable +[phone] Alfreda Ray Alexa KING Unavailable [phone] Cristina Hsieh [facility] Unavailable Dakota Tatum MD Unavailable Dakota Tatum MD Unavailable Srinivas Marie DO Unavailable [phone] Reason for Visit * Reason Onset Date Comments Imm/Inj 08/19/2018 Shingrix Encounter Details Date Type Department Care Team (Late st Contact Info) Description 08/19/2018 MyC Medical Advice [place] [id number] [facility], [address] [place] [address] [place] [address] [place] [address] Imm/Inj (Shingrix) Social History Tobacco [...] Assigned at Female 08/17/2018 7:56 AM CASE MANAGEMENT SOCIAL WORKER Legal Sex Female 4:24 AM CASE MANAGEMENT SOCIAL WORKER Gender Identity Female 08/17/2018 7:56 AM CASE MANAGEMENT SOCIAL WORKER Sexual Orientation Straight 08/17/2018 7: 56 AM CASE MANAGEMENT SOCIAL WORKER documented as of this encounter Plan of Treatment Upcoming Encounters Date Type Department Care Team (Late st Contact Info) Description 09/07/2024 10:00 AM CDT Office Visit [address] [place] [address] Fransisco Eddy MD [address] [place] [address] 03/29/2025 3:40 PM CDT Office Visit [facility] [address] [place] [phone] Alfreda Ray PA-C [address] [place] [address] 615762 documented as of this encounter Visit Diagnoses Not on filedocumented in this encounter Additional Health Concerns Infection Onset Date Last Indicated Resolved Time Rule Out COVID-19 05/08/2021 05/08/2021 05/09/2021 9:08 PM CASE MANAGEMENT SOCIAL WORKER Assessment Noted Time PHQ-9 Depression Total Score: 1 08/20/19 1:44 PM CASE MANAGEMENT SOCIAL WORKER documented as of this encounter Care Teams Veneer Press Operator Relationship Specialty Start Date End Date Esperanza Gatica MD PCP - General Family Practice 10/13/11 12/29/21 [place] [address] [address]ARC[address] [address] PCP - Assigned PCP 12/05/17 08/23/18 Alfreda Ray PA-C [address] [place] [address] PCP - General Family Medicine 12/30/21 [place] [address] [address]ARCIA [address] Assigned PCP 12/05/17 09/30/19 [place] [address] [address] [address] Assigned PCP 10/01/19 03/02/20 [place] [address] [place] [address] Assigned PCP 03/03/20 05/25/20 [place] [address] [place] [address] Assigned PCP 05/26/20 09/28/20 [place] [address] [place] [address] Assigned PCP 09/29/20 07/31/22 Jesú[place] [address] [place] [address] [address] Assigned Musculoskeletal Provider 10/20/20 04/17/22 Alfreda Ray PA-C [address] [place] [address] [phone] Referring Physician Family Medicine 12/31/21 Katrin Orellana PA-C [address] [place] [address] 012015 Physician Data Administrator Dermatology 12/31/21 Shanna Vang PA-C [address] [place] [address] 465354 Assigned Cancer Care Provider 01/10/22 Fransisco Eddy MD [address] [place] [address] 277655 Assigned Rheumatology Provider 05/09/22 [place] [address] [address] [place] [address] Assigned Pain Medication Provider 06/29/22 09/04/22 [place] [address] [place] [address] Assigned PCP 08/15/22 08/28/22 Katrin Orellana PA-C [address] [place] [address] 995735 Assigned Surgical Provider 08/15/22 02/10/24 Cristina Hsieh [facility] [address] [place] [address] LISBETH HERNANDEZ [address] Pharmacist Pharmacist 09/07/22 Alfreda Ray PA-C [address] [place] [address] 324462 Assigned Pain Medication Provider 09/05/22 09/10/23 Alfreda Ray PA-C [address] [place] [address] Assigned PCP 08/29/22 Cristina Hsieh [facility] [address] [id number] Assigned MTM Pharmacist 09/26/22 Dakota Tatum MD [address] [place] [address] Cardiovascular Disease 03/25/23 Dakota Tatum MD 6 [place], [place] 533925 Assigned Heart and Vascular Provider 05/01/23 [place] [address] [address], [address] [address] Assigned Musculoskeletal Provider 04/12/24 documented as of this encounter
--- OUTSIDE RECORDS SUMMARY | 2024-06-23 00:24 | XMS_ITS | Encounter Summary ---
Author Organization [place] Address [address] [place] [address] Care Team Providers Care Wax Bleacher Name Role Phone Esperanza Gatica MD Primary Care Provider + Esperanza Gatica MD Unavailable + Esperanza Gatica MD Unavailable + Esperanza Gatica MD Unavailable + Esperanza Gatica MD Unavailable + Esperanza Gatica MD Unavailable + Jesús Orourke MD Unavailable Alfreda Ray-C Primary Care Provider + Alfreda Ray-C Unavailable + [phone] Katrin OrellanaC Unavailable +[phone] Shanna Vang-C Unavailable +[phone] Fransisco Eddy MD Unavailable +[phone] Esperanza Gatica MD Unavailable + Esperanza Gatica MD Unavailable + Katrin OrellanaC Unavailable +[phone] Cristina Hsieh [facility] Unavailable +[phone] Alfreda Ray PA-C Unavailable Alfreda Ray PA-C Unavailable +[phone] Cristina Hsieh Martin [facility] Unavailable +[phone] Dakota Tatum MD Unavailable Dakota Tatum MD Unavailable +[phone] Srinivas Marie DO Unavailable +[phone] Encounter Details Date Type Department Care Team (Late st Contact Info) Description 01/25/2019 MyC Medical Advice [address] [address] Jena Howe RN Social History [...] Sex Assigned at Female 08/17/2018 7:56 AM INVESTOR RELATIONS DIRECTOR Legal Sex Female 4:24 AM INVESTOR RELATIONS DIRECTOR Gender Identity Female 08/17/2018 7:56 AM INVESTOR RELATIONS DIRECTOR Sexual Orientation Straight 08/17/2018 7: 56 AM INVESTOR RELATIONS DIRECTOR documented as of this encounter Plan of Treatment Upcoming Encounters Date Type Department Care Team (Late st Contact Info) Description 09/07/2024 10:00 AM CDT Office Visit [facility] [address] [phone] Fransisco Eddy MD [address] [place] [address] [phone] 03/29/2025 3:40 PM CDT Office Visit [address] [phone] Alfreda Ray PA-C [address] [place] [address] documented as of this encounter Visit Diagnoses Not on filedocumented in this encounter Additional Health Concerns Infection Onset Date Last Indicated Resolved Time Rule Out COVID-19 05/08/2021 05/08/2021 05/09/2021 9:08 PM INVESTOR RELATIONS DIRECTOR Assessment Noted Time PHQ-9 Depression Total Score: 1 08/20/19 19 1:44 PM INVESTOR RELATIONS DIRECTOR documented as of this encounter Care Teams Wax Bleacher Relationship Specialty Start Date End Date Esperanza Gatica MD PCP - General Family Practice 10/13/11 12/29/21 Alfreda Ray PA-C [address] [place] [address] PCP - General Family Medicine 12/30/21 [place] [address] [address] GARCIA [id number] Assigned PCP 12/05/17 09/30/19 [place] [address] [address]ARCIA [address] Assigned PCP 10/01/19 03/02/20 [place] [address] [address]ARCIA [address] Assigned PCP 03/03/20 05/25/20 [place] [address] [address] [address] Assigned PCP 05/26/20 09/28/20 [place] [address] [place] [address] Assigned PCP 09/29/20 07/31/22 Jesú[place] [address] [place] [address] Assigned Musculoskeletal Provider 10/20/20 04/17/22 Alfreda Ray PA-C [address] [place] [address] 686882 Referring Physician Family Medicine 12/31/21 Katrin Orellana PA-C [address] [place] [address] 98 [place], [place] 238395 Physician Station Detective Dermatology 12/31/21 Shanna Vang PA-C [address] 270384 Assigned Cancer Care Provider 01/10/22 Fransisco Eddy MD [address] [place] [address] 552495 Assigned Rheumatology Provider 05/09/22 [place] [address] [place] [address] Assigned Pain Medication Provider 06/29/22 09/04/22 [place] [address] [place] [address] Assigned PCP 08/15/22 08/28/22 Katrin Orellana PA-C [address] [facility] 98 [place] [address] Assigned Surgical Provider 08/15/22 02/10/24 Cristina Hsieh [facility] [address] [facility] L[place]BETH HERNANDEZ [address] Pharmacist Pharmacist 09/07/22 Alfreda Ray PA-C [address] [place] [address] 753142 Assigned Pain Medication Provider 09/05/22 09/10/23 Alfreda Ray PA-C [address] [place] [address] 100442 Assigned PCP 08/29/22 Cristina Hsieh, [facility] [address] [address] Assigned MTM Pharmacist 09/26/22 Dakota Tatum MD [address] [place] [address] Cardiovascular Disease 03/25/23 Dakota Tatum MD 6 [place] [address] Assigned Heart and Vascular Provider 05/01/23 [place] [address] [address], [facility] [address] [place] [address] Assigned Musculoskeletal Provider 04/12/24 documented as of this encounter
--- OUTSIDE RECORDS SUMMARY | 2024-06-23 00:24 | XMS_ITS | Encounter Summary ---
Author Organization [place] Address [address] [place] [address] Care Team Providers Care Chemical Machine Tender Name Role Phone Esperanza Gatica MD Primary Care Provider + Esperanza Gatica MD Unavailable +[phone] Esperanza Gatica MD Unavailable +[phone] Esperanza Gatica MD Unavailable +102 Esperanza Gatica MD Unavailable +[phone] Esperanza Gatica MD Unavailable +[phone] Esperanza Gatica MD Unavailable +[phone] Jesús Orourke MD Unavailable Alfreda RayC Primary Care Provider + Alfreda Ray PA-C Unavailable + [phone] Katrin Orellana PA-C Unavailable [phone] Shanna VangC Unavailable +[phone] Fransisco Eddy MD Unavailable [phone] Esperanza Gatica MD Unavailable +[phone] Esperanza Gatica MD Unavailable +[phone] Katrin Orellana PA-C Unavailable Cristina Hsieh [facility] Unavailable RayAlfreda PA-C Unavailable Cory Alfreda Liu PA-C Unavailable Cristina Hsieh [facility] Unavailable Dakota Tatum MD Unavailable Dakota Tatum MD Unavailable Srinivas Marie DO Unavailable Reason for Visit * Reason Onset Date Comments Medication Refill atenolol (TENO RMIN) 25 MG tablet Refill Request 08/14/2018 lisinopril-hydro chlorothiazide (PRINZIDE/ZESTORETIC) 10-12.5 MG per tablet Refill Request 08/14/2018 traZODone (DESYR EL) 50 MG tablet Encounter Details Date Type Department Care Team (Late st Contact Info) Description 08/14/[address], [facility] [address] [place] [address] [place] [address] [place] [address] Medication Refill (atenolol (TENORMIN) 25 [...] Sex Assigned at Female 08/17/2018 7:56 AM TROUSSEAU CONSULTANT Legal Sex Female 4:24 AM TROUSSEAU CONSULTANT Gender Identity Female 08/17/2018 7:56 AM TROUSSEAU CONSULTANT Sexual Orientation Straight 08/17/2018 7: 56 AM TROUSSEAU CONSULTANT documented as of this encounter Miscellaneous Notes * Telephone Encounter - Leigha Rinaldi RN - 08/16/2018 12:39 PM CST Prescription approved per [facility] Refill Protocol. Leigha Rinaldi RN SSEAU CONSULTANT * Telephone Encounter - Yohan Whitaker Aby [...] 90 days) Aug 19, 2018 11:00 AM TROUSSEAU CONSULTANT PHYSICAL with Esperanza Gatica MD [facility] ([facility]) [address] [place] [address], [address] [address] 90 tablet 1 Sig: TAKE [...] 90 days) Aug 19, 2018 11:00 AM TROUSSEAU CONSULTANT PHYSICAL with Esperanza Gatica MD [facility] ([facility]) [facility], [address] [place] [address] 90 tablet 2 Sig: TAKE ONE [...] 90 days) Aug 19, 2018 11:00 AM TROUSSEAU CONSULTANT PHYSICAL with Esperanza Gatica MD [facility] ([facility]) [facility], [address] [facility] [address] 90 tablet 3 Sig: TAKE ONE TABLET [...] No positive test in past 12 months SSEAU CONSULTANT documented in this encounter Plan of Treatment Upcoming Encounters Date Type Department Care Team ([facility] st Contact Info) Description 09/07/2024 10:00 AM CDT Office Visit [address] [phone] Fransisco Eddy MD [address] [place] [address] [phone] 03/29/2025 3:40 PM CDT Office Visit [address] [phone] Alfreda Ray PA-C [address] [place] [address] [phone] documented as of this encounter Visit Diagnoses Diagnosis HTN, goal below 140/90 Unspecified essential hypertension HTN (hypertension), benign Essential hypertension, benign Insomnia, unspecified type documented in this encounter Additional Health Concerns Infection Onset Date Last Indicated Resolved Time Rule Out COVID-19 05/08/2021 05/08/2021 05/09/2021 9:08 PM TROUSSEAU CONSULTANT Assessment Noted Time PHQ-9 Depression Total Score: 1 04/05/20 7:16 AM CDT documented as of this encounter Care Teams Chemical Machine Tender Relationship Specialty Start Date End Date Esperanza Gatica MD PCP - General Family Practice 10/13/11 12/29/21 [place] [address] [place] [address] PCP - Assigned PCP 12/05/17 08/23/18 Alfreda Ray PA-C [address] [place] [address], [place] [address] PCP - General Family Medicine 12/30/21 [place] [address] [place] [address] Assigned PCP 12/05/17 09/30/19 [place] [address] [place] [address] Assigned PCP 10/01/19 03/02/20 [place] [address] [place] [address] Assigned PCP 03/03/20 05/25/20 [place] [address] [place] [address] Assigned PCP 05/26/20 09/28/20 [place] [address] [place] [address] Assigned PCP 09/29/20 07/31/22 Jesú[place] [address] [place] [address] [address] Assigned Musculoskeletal Provider 10/20/20 04/17/22 Alfreda Ray PA-C [address] [place] [address] 351512 Referring Physician Family Medicine 12/31/21 Katrin Orellana PA-C [address] [place] [address] 305295 Physician Research Software Engineer Dermatology 12/31/21 Shanna Vang PA-C [address] 234564 Assigned Cancer Care Provider 01/10/22 Fransisco Eddy MD [address] [place] [address] 879665 Assigned Rheumatology Provider 05/09/22 [place] [address] [address]ARCIA [address] Assigned Pain Medication Provider 06/29/22 09/04/22 [place] [address] [address] [address] Assigned PCP 08/15/22 08/28/22 Katrin Orellana PA-C [address] [place] [address] 036905 Assigned Surgical Provider 08/15/22 02/10/24 Cristina Hsieh, [facility] [address] [facility] [place]Z [address] Pharmacist Pharmacist 09/07/22 Alfreda Ray PA-C [address] [place] [address] 037082 Assigned Pain Medication Provider 09/05/22 09/10/23 Alfreda Ray PA-C [address] [place] [address] 943242 Assigned PCP 08/29/22 Cristina Hsieh, [facility] [address] [address] Assigned MTM Pharmacist 09/26/22 Dakota Tatum MD [address] [place] [address] Cardiovascular Disease 03/25/23 Dakota Tatum MD [address] [place] [address] Assigned Heart and Vascular Provider 05/01/23 [place] [address] [address], [facility] [address] [place] [address] Assigned Musculoskeletal Provider 04/12/24 documented as of this encounter
--- OUTSIDE RECORDS SUMMARY | 2024-06-23 00:24 | XMS_ITS | Encounter Summary ---
Author Organization [place] Address [address] [place] [address] Care Team Providers Care Hydrate Thickener Operator Name Role Phone Kelly Haley MD Primary Care Provider + Kelly Haley MD Unavailable +[phone] Kelly Haley MD Unavailable +[phone] Kelly Haley MD Unavailable +[phone] Kelly Haley MD Unavailable +325 Kelly Haley MD Unavailable +[phone] Kelly Haley MD Unavailable +[phone] Jesús Orourke MD Unavailable Alfreda RayC Primary Care Provider + Alfreda Ray PA-C Unavailable + [phone] Katrin Orellana PA-C Unavailable +[phone] Shanna VangC Unavailable +[phone] Fransisco Eddy MD Unavailable [phone] Kelly Haley MD Unavailable +[phone] Kelly Haley MD Unavailable +[phone] Katrin Orellana PA-C Unavailable Cristina Hsieh [facility] Unavailable Cory Alfreda Liu PA-C Unavailable +[phone] Ho Raymustapha Liu PA-C Unavailable +[phone] Cristina Hsieh [facility] Unavailable [phone] Dakota Tatum MD Unavailable Dakota Tatum MD Unavailable [phone] Srinivas Marie DO Unavailable [phone] Reason for Visit * Reason Onset Date Comments Refill Request 06/16/2018 HYDROcodone-acet aminophen (NORCO) 5-325 MG per tablet Encounter Details Date Type Department Care Team (Late st Contact Info) Description 06/16/2018 MyC Refill [address], [address] [place] [address] [place] [address] [place] [address] Refill Request (HYDROcodone-acetamino phen ... [...] Sex Assigned at Female 08/17/2018 7:56 AM HYDRAULIC ROCKBREAKER OPERATOR Legal Sex Female 4:24 AM HYDRAULIC ROCKBREAKER OPERATOR Gender Identity Female 08/17/2018 7:56 AM HYDRAULIC ROCKBREAKER OPERATOR Sexual Orientation Straight 08/17/2018 7: 56 AM HYDRAULIC ROCKBREAKER OPERATOR documented as of this encounter Miscellaneous Notes * Telephone Encounter - Leigha Rinaldi RN - 06/17/2018 1:45 PM CST Duplicate. Leigha Rinaldi RN AULIC ROCKBREAKER OPERATOR * Telephone Encounter - Diya Stone - [...] Score(s): No flowsheet data found. ?? Last [facility] website verification: Done 03.16.18 Last Written Prescription Date: 03/24/18 Last Fill Quantity: 90, # refills: 0 Last Office Visit with [facility] primary care provider: 04/04/2018 Clinic visit frequency required: Q 3 months Future Office visit: Next 5 appointments (look out 90 days) Jul 05, 2018 10:00 AM HYDRAULIC ROCKBREAKER OPERATOR PHYSICAL with Kelly Haley MD [facility] ([facility]) [address] [place] [address] 100 [facility] [address] Controlled substance agreement on file: Yes: Date 03/08/15. Processing: Patient will pick up operator in clinic LEASING AGENT checked in past 3 months? No, route to RN AULIC ROCKBREAKER OPERATOR documented in this encounter Plan of Treatment Upcoming Encounters Date Type Department Care Team (Late st Contact Info) Description 09/07/2024 10:00 AM CDT Office Visit [facility] [address] [place] [address] Fransisco Eddy MD [address] [place] [address] 03/29/2025 3:40 PM CDT Office Visit [address] [phone] Alfreda Ray PA-C [address] [place] [address] 757832 documented as of this encounter Visit Diagnoses Diagnosis Primary osteoarthritis involving multiple joints documented in this encounter Additional Health Concerns Infection Onset Date Last Indicated Resolved Time Rule Out COVID-19 05/08/2021 05/08/2021 05/09/2021 9:08 PM HYDRAULIC ROCKBREAKER OPERATOR Assessment Noted Time PHQ-9 Depression Total Score: 1 04/05/20 18 7:16 AM CDT documented as of this encounter Care Teams Hydrate Thickener Operator Relationship Specialty Start Date End Date Kelly Haley MD PCP - General Family Practice 10/13/11 12/29/21 [place] [address] [address] GARCIA [address] PCP - Assigned PCP 12/05/17 08/23/18 Alfreda Ray PA-C [address] [place] [address] 785372 PCP - General Family Medicine 12/30/21 [place] [address] [address] GARCIA [address] Assigned PCP 12/05/17 09/30/19 [place] [address] [address] [place]IA [address] Assigned PCP 10/01/19 03/02/20 [place] [address] [place] [address] Assigned PCP 03/03/20 05/25/20 [place] [address] [place] [address] Assigned PCP 05/26/20 09/28/20 [place] [address] [place] [address] Assigned PCP 09/29/20 07/31/22 [place] [address] [place] [address] Assigned Musculoskeletal Provider 10/20/20 04/17/22 Alfreda Ray PA-C [address] [place] [address] 308372 Referring Physician Family Medicine 12/31/21 Katrin Orellana PA-C [address] [place] [address] 168445 Physician Final Cigar And Box Examiner Dermatology 12/31/21 Shanna Vang PA-C [address] [place] [address] 034964 Assigned Cancer Care Provider 01/10/22 Fransisco Eddy MD [address] [place] [address] 104535 Assigned Rheumatology Provider 05/09/22 [place] [address] [place] [address] Assigned Pain Medication Provider 06/29/22 09/04/22 [place] [address] [place] [address] Assigned PCP 08/15/22 08/28/22 Katrin Orellana PA-C [address] [place] [address] 98 [place], [place] 506125 Assigned Surgical Provider 08/15/22 02/10/24 Cristina Hsieh [facility] 3[address] [facility] [place]BETH [place]DEZ [address] Pharmacist Pharmacist 09/07/22 Alfreda Ray PA-C [address] [place] [address] 793232 Assigned Pain Medication Provider 09/05/22 09/10/23 Alfreda Ray PA-C [address] [place] [address] 042062 Assigned PCP 08/29/22 Cristina Hsieh [facility] [address] [id number] Assigned MTM Pharmacist 09/26/22 Dakota Tatum MD [address] [place] [address] Cardiovascular Disease 03/25/23 Dakota Tatum MD 6 [place], [place] 645495 Assigned Heart and Vascular Provider 05/01/23 [place] [address] [address], [address] 439837 Assigned Musculoskeletal Provider 04/12/24 documented as of this encounter
--- OUTSIDE RECORDS SUMMARY | 2024-06-23 00:24 | XMS_ITS | Encounter Summary ---
Author Organization [place] Address [address] [place] [address] Care Team Providers Care Planishing Hammer Operator Name Role Phone Esperanza Gatica MD Primary Care Provider + Esperanza Gatica MD Unavailable +[phone] Esperanza Gatica MD Unavailable +180 Esperanza Gatica MD Unavailable +[phone] Esperanza Gatica MD Unavailable +[phone] Esperanza Gatica MD Unavailable +[phone] Esperanza Gatica MD Unavailable +[phone] Jesús Orourke MD Unavailable Alfreda RayC Primary Care Provider + Alfreda Ray PA-C Unavailable + [phone] Katrin Orellana PA-C Unavailable +[phone] Shanna VangC Unavailable +[phone] Fransisco Eddy MD Unavailable [phone] Esperanza Gatica MD Unavailable +[phone] Esperanza Gatica MD Unavailable +[phone] Katrin Orellana PA-C Unavailable Cristina Hsieh [facility] Unavailable Cory Alfreda Liu PA-C Unavailable +[phone] Alfreda Ray Alexa KING Unavailable +[phone] Cristina Hsieh [facility] Unavailable [phone] Daktoa Tatum MD Unavailable Dakota Tatum MD Unavailable [phone] Srinivas Marie DO Unavailable [phone] Reason for Visit * Reason Comments Medication Refill simvastatin (ZOCOR) 20 MG tablet Encounter Details Date Type Department Care Team (Late st Contact Info) Description 08/14/[address], [address] [place] [address] Zenaida Coon APRN [employer] [address] [place] [address] Medication Refill (simvastatin (ZOCOR) 20 [...] Sex Assigned at Female 08/17/2018 7:56 AM TANKER SERVICEMAN Legal Sex Female 4:24 AM TANKER SERVICEMAN Gender Identity Female 08/17/2018 7:56 AM TANKER SERVICEMAN Sexual Orientation Straight 08/17/2018 7: 56 AM TANKER SERVICEMAN documented as of this encounter Miscellaneous Notes * Telephone Encounter - Leigha Rinaldi RN - 08/16/2018 12:26 PM CST Prescription approved per [facility] Refill Protocol. Leigha Rinaldi RN ER SERVICEMAN * Telephone Encounter - Yohan Whitaker 08/15/2018 [...] 90 days) Aug 19, 2018 11:00 AM TANKER SERVICEMAN PHYSICAL with Esperanza Gatica MD [facility] [address] [place] [address], [facility] 100 [facility] [address] 90 tablet 3 Sig: TAKE [...] No positive test in past 12 months ER SERVICEMAN documented in this encounter Plan of Treatment Upcoming Encounters Date Type Department Care Team (Late st Contact Info) Description 09/07/2024 10:00 AM CDT Office Visit [address] [phone] Fransisco Eddy MD [address] [place] [address] 132265 03/29/2025 3:40 PM CDT Office Visit [address] [phone] Alfreda Ray PA-C [address] [place] [address] 369262 documented as of this encounter Visit Diagnoses Diagnosis Hyperlipidemia LDL goal <160 Other and unspecified hyperlipidemia documented in this encounter Additional Health Concerns Infection Onset Date Last Indicated Resolved Time Rule Out COVID-19 05/08/2021 05/08/2021 05/09/2021 9:08 PM TANKER SERVICEMAN Assessment Noted Time PHQ-9 Depression Total Score: 1 04/05/20 18 7:16 AM CDT documented as of this encounter Care Teams Planishing Hammer Operator Relationship Specialty Start Date End Date Esperanza Gatica MD PCP - General Family Practice 10/13/11 12/29/21 [place] [address] [address] [address] PCP - Assigned PCP 12/05/17 08/23/18 Alfreda Ray PA-C [address] [place] [address] 032812 PCP - General Family Medicine 12/30/21 [place] [address] [address]ARCIA [address] Assigned PCP 12/05/17 09/30/19 [place] [address] [address]ARCIA [address] Assigned PCP 10/01/19 03/02/20 [place] [address] [place] [address] Assigned PCP 03/03/20 05/25/20 [place] [address] [place] [address] Assigned PCP 05/26/20 09/28/20 [place] [address] [place] [address] Assigned PCP 09/29/20 07/31/22 Jesú[place] [address] [place] [address] Assigned Musculoskeletal Provider 10/20/20 04/17/22 Alfreda Ray PA-C [address] [place] [address] 311142 Referring Physician Family Medicine 12/31/21 Katrin Orellana PA-C [address] [place] [address] 98 [place], [place] 720705 Physician Forest Technology Professor Dermatology 12/31/21 Shanna Vang PA-C [address] [place] [address] 405744 Assigned Cancer Care Provider 01/10/22 Fransisco Eddy MD [address] [place] [address] 701955 Assigned Rheumatology Provider 05/09/22 [place] [address] [place] [address] Assigned Pain Medication Provider 06/29/22 09/04/22 [place] [address] [place] [address] Assigned PCP 08/15/22 08/28/22 Katrin Orellana PA-C [address] [place] [address] 98 [place], [place] 520235 Assigned Surgical Provider 08/15/22 02/10/24 Cristina Hsieh [facility] 3[address] [facility] LISBETH HERNANDEZ [address] Pharmacist Pharmacist 09/07/22 Alfreda Ray PA-C [address] [place] [address] 116752 Assigned Pain Medication Provider 09/05/22 09/10/23 Alfreda Ray PA-C [address] [place] [address] Assigned PCP 08/29/22 Cristina Hsieh [facility] [address] [address] Assigned MTM Pharmacist 09/26/22 Dakota Tatum MD [address] [place] [address] Cardiovascular Disease 03/25/23 Dakota Tatum MD [address] [place] [address] Assigned Heart and Vascular Provider 05/01/23 [place] [address] [place] , [address] [address] Assigned Musculoskeletal Provider 04/12/24 documented as of this encounter
--- OUTSIDE RECORDS SUMMARY | 2024-06-23 00:24 | XMS_ITS | Encounter Summary ---
Author Organization [place] Address [address] [place] [address] Care Team Providers Care Food Service Clerk Name Role Phone Esperanza Gatica MD Primary Care Provider + Esperanza Gatica MD Unavailable +[phone] Esperanza Gatica MD Unavailable +[phone] Esperanza Gatica MD Unavailable +[phone] Esperanza Gatica MD Unavailable +772 Esperanza Gatica MD Unavailable +383 Esperanza Gatica MD Unavailable +[phone] Jesús Orourke MD Unavailable Alfreda RayC Primary Care Provider + Alfreda Ray PA-C Unavailable + [phone] Katrin Orellana PA-C Unavailable +[phone] Shanna VangC Unavailable +[phone] Fransisco Eddy MD Unavailable +[phone] Esperanza Gatica MD Unavailable +[phone] Esperanza Gatica MD Unavailable +[phone] Katrin Orellana PA-C Unavailable +[phone] Cristina Hsieh [facility] Unavailable +[phone] RayAlfreda PA-C Unavailable +[phone] Ho Raymustapha Liu PA-C Unavailable +[phone] Cristina Hsieh [facility] Unavailable Dakota Tatum MD Unavailable Dakota Tatum MD Unavailable Srinivas Marie DO Unavailable [phone] Reason for Visit * Reason Onset Date Comments Medication Question 05/10/2018 Encounter Details Date Type Department Care Team (Late st Contact Info) Description 05/10/2018 MyC Medical Advice [address], [address] [place] [address] [place] [address] [place] [address] Medication Question Social History Tobacco [...] Sex Assigned at Female 08/17/2018 7:56 AM ACCOUNTING DIRECTOR Legal Sex Female 4:24 AM ACCOUNTING DIRECTOR Gender Identity Female 08/17/2018 7:56 AM ACCOUNTING DIRECTOR Sexual Orientation Straight 08/17/2018 7: 56 AM ACCOUNTING DIRECTOR documented as of this encounter Miscellaneous Notes * Telephone Encounter - Leigha Rinaldi RN - 05/10/2018 3:41 PM CST ECHOMETER ENGINEER checked 05/10/2018: Does not reflect that patient received rx's. 04/15/2018 GABAPENTIN 100 MG CAPSULE 120.00 04/04/2018 TEMAZEPAM 7.5 MG CAPSULE 30.00 04/04/2018 TRAMADOL HCL 50 MG TABLET 180.00 Leigha Rinaldi RN UNTING DIRECTOR documented in this encounter Plan of Treatment Upcoming Encounters Date Type Department Care Team (Late st Contact Info) Description 09/07/2024 10:00 AM CDT Office Visit [facility] [address] [place] [phone] Fransisco Eddy MD [address] [place] [address] [phone] 03/29/2025 3:40 PM CDT Office Visit [address] [phone] Alfreda Ray PA-C [address] [place] [address] 637232 documented as of this encounter Visit Diagnoses Not on filedocumented in this encounter Additional Health Concerns Infection Onset Date Last Indicated Resolved Time Rule Out COVID-19 05/08/2021 05/08/2021 05/09/2021 9:08 PM ACCOUNTING DIRECTOR Assessment Noted Time PHQ-9 Depression Total Score: 1 04/05/20 18 7:16 AM CDT documented as of this encounter Care Teams Food Service Clerk Relationship Specialty Start Date End Date Esperanza Gatica MD PCP - General Family Practice 10/13/11 12/29/21 [place] [address] [place] [address] PCP - Assigned PCP 12/05/17 08/23/18 Alfreda Ray PA-C [address] [place] [address] 995752 PCP - General Family Medicine 12/30/21 [place] [address] [place] [address] Assigned PCP 12/05/17 09/30/19 [place] [address] [place] [address] Assigned PCP 10/01/19 03/02/20 [place] [address] [place] [address] Assigned PCP 03/03/20 05/25/20 [place] [address] [place] [address] Assigned PCP 05/26/20 09/28/20 [place] [address] [place] [address] Assigned PCP 09/29/20 07/31/22 Jesú[place] [address] [place] [address] Assigned Musculoskeletal Provider 10/20/20 04/17/22 Alfreda Ray PA-C [address] [place] [address] 160952 Referring Physician Family Medicine 12/31/21 Katrin Orellana PA-C [address] [address] Physician Circular Gang Saw Operator Dermatology 12/31/21 Shanna Vang PA-C [address] [place] [address] Assigned Cancer Care Provider 01/10/22 Fransisco Eddy MD [address] [place] [address] 88 [place] [address] Assigned Rheumatology Provider 05/09/22 [place] [address] [place] [address] Assigned Pain Medication Provider 06/29/22 09/04/22 [place] [address] [place] [address] Assigned PCP 08/15/22 08/28/22 Katrin Orellana PA-C [address] [place] [address] 842635 Assigned Surgical Provider 08/15/22 02/10/24 Cristina Hsieh [facility] [address] [place] [address] LISBETH HERNANDEZ [address] Pharmacist Pharmacist 09/07/22 Alfreda Ray PA-C [address] [place] [address] 611532 Assigned Pain Medication Provider 09/05/22 09/10/23 Alfreda Ray PA-C [address] [place] [address] 579782 Assigned PCP 08/29/22 Cristina Hsieh, [facility] [address] [facility] [address] [place] [address] Assigned MTM Pharmacist 09/26/22 Dakota Tatum MD [address] [place] [address] 424435 Cardiovascular Disease 03/25/23 Dakota Tatum MD [address] [place] [address] 923315 Assigned Heart and Vascular Provider 05/01/23 [place] [address] [address], [facility] [address] [place] [address] Assigned Musculoskeletal Provider 04/12/24 documented as of this encounter
--- OUTSIDE RECORDS SUMMARY | 2024-06-23 00:25 | XMS_ITS | Encounter Summary ---
Author Organization [place] Address [address] [place] [address] Care Team Providers Care Registrar Nurses' Registry Name Role Phone Esperanza Gatica MD Primary Care Provider + Esperanza Gatica MD Unavailable +[phone] Esperanza Gatica MD Unavailable +[phone] Esperanza Gatica MD Unavailable +860 Esperanza Gatica MD Unavailable +609 Esperanza Gatica MD Unavailable +861 Esperanza Gatica MD Unavailable +[phone] Jesús Orourke MD Unavailable Alfreda RayC Primary Care Provider + Alfreda Ray PA-C Unavailable + [phone] Katrin Orellana PA-C Unavailable +[phone] Shanna VangC Unavailable +[phone] Fransisco Eddy MD Unavailable +[phone] Esperanza Gatica MD Unavailable +[phone] Esperanza Gatica MD Unavailable +[phone] Katrin Orellana PA-C Unavailable [phone] Cristina Hsieh [facility] Unavailable Cory Alfreda Liu PA-C Unavailable +[phone] Ho Raymustapha Liu PA-C Unavailable +[phone] Cristina Hsieh [facility] Unavailable Dakota Tatum MD Unavailable Dakota Tatum MD Unavailable [phone] Srinivas Marie DO Unavailable Reason for Visit * Reason Onset Date Comments Refill Request 07/04/2015 Edilberto Syed Encounter Details Date Type Department Care Team (Late st Contact Info) Description 07/04/2015 Migdalia Alcaraz [address], [address] [place] [address] [place] [address] [place] [address] Refill Request (Edilberto Syed) Social [...] Sex Assigned at Female 08/17/2018 7:56 AM HOME HEALTH SCHEDULER Legal Sex Female 4:24 AM HOME HEALTH SCHEDULER Gender Identity Female 08/17/2018 7:56 AM HOME HEALTH SCHEDULER Sexual Orientation Straight 08/17/2018 7: 56 AM HOME HEALTH SCHEDULER documented as of this encounter Miscellaneous Notes * Telephone Encounter - Leigha Rinaldi RN - 07/04/2015 10:51 AM CST Deannecor Last Written Prescription Date: 01/21/2015 Last Fill Quantity: 90, # refills: 1 Last [place] Visit [place] [facility] [place] care provider: 04/08/2015 CHOL 137 07/10/2014 HDL 54 07/10/2014 LDL 62 07/10/2014 TRIG 105 07/10/2014 CHOLHDLRATIO 2.5 07/10/2014 Tenormin Last Written Prescription Date: 01/15/2015 Last Fill Quantity: 90, # refills: 1 Last Office Visit with [facility] primary care provider: 04/08/2015 Future Office Visit: BP Readings from Last 3 Encounters: 04/08/15 112/60 12/06/14 126/64 08/07/14 130/88 Medication is being filled for 1 time refill only due to: Patient needs labs Cholesterol. Leigha Rinaldi RN HEALTH SCHEDULER * Telephone Encounter - Leigha Rinaldi RN - 07/04/2015 10:51 AM CSTMessage from [facility]: Original authorizing provider: MD Alexandria Brannon would like a refill of the following medications: atenolol (TENORMIN) 25 MG tablet [Esperanza Gatica MD] simvastatin (ZOCOR) 20 MG tablet [Esperanza Gatica MD] Preferred pharmacy: [id number] Comment: I'm not out of Simvastatin, but we are leaving for a couple of weeks on the & I want to besure I have enough to last until we return. HEALTH SCHEDULER documented in this encounter Plan of Treatment Upcoming Encounters Date Type Department Care Team (Late st Contact Info) Description 09/07/2024 10:00 AM CDT Office Visit [facility] [address] [phone] Fransisco Eddy MD [address] [place] [address] [phone] 03/29/2025 3:40 PM CDT Office Visit [address] [phone] Alfreda Ray PA-C [address] [place] [address] documented as of this encounter Visit Diagnoses Diagnosis HTN (hypertension), benign Essential hypertension, benign Hyperlipidemia LDL goal <160 Other and unspecified hyperlipidemia documented in this encounter Additional Health Concerns Infection Onset Date Last Indicated Resolved Time Rule Out COVID-19 05/08/2021 05/08/2021 05/09/2021 9:08 PM HOME HEALTH SCHEDULER documented as of this encounter Care Teams Registrar Nurses' Registry Relationship Specialty Start Date End Date Esperanza Gatica MD PCP - General Family Practice 10/13/11 12/29/21 [place] [address] LISBETH GARCIA [address] PCP - Assigned PCP 12/05/17 08/23/18 Alfreda Ray PA-C [address] [place] [address] PCP - General Family Medicine 12/30/21 [place] [address] [place] GARCIA [address] Assigned PCP 12/05/17 09/30/19 [place] [address] [address]ARCIA [address] Assigned PCP 10/01/19 03/02/20 [place] [address] L[place]B[address] GARCIA [address] Assigned PCP 03/03/20 05/25/20 [place] [address] [place] [address] Assigned PCP 05/26/20 09/28/20 [place] [address] [place] [address] Assigned PCP 09/29/20 07/31/22 [place] [address] [place] [address] Assigned Musculoskeletal Provider 10/20/20 04/17/22 Alfreda Ray PA-C [address] [place] [address] 035972 Referring Physician Family Medicine 12/31/21 Katrin Orellana PA-C [address] [place] [address] 98 [place], [place] [phone] Physician Weaving Supervisor Dermatology 12/31/21 Shanna Vang PA-C [address] [place] [address] [phone] Assigned Cancer Care Provider 01/10/22 Fransisco Eddy MD [address] [place] [address] 525075 Assigned Rheumatology Provider 05/09/22 [place] [address] [place] [address] Assigned Pain Medication Provider 06/29/22 09/04/22 [place] [address] [place] [address] Assigned PCP 08/15/22 08/28/22 Katrin Orellana PA-C [address] [place] [address] 98 [place], [place] 581895 Assigned Surgical Provider 08/15/22 02/10/24 Cristina Hsieh [facility] [address] [facility] LISBETH HERNANDEZ [address] Pharmacist Pharmacist 09/07/22 Alfreda Ray PA-C [address] [place] [address] 742942 Assigned Pain Medication Provider 09/05/22 09/10/23 Alfreda Ray PA-C [address] [place] [address] 836862 Assigned PCP 08/29/22 Cristina Hsieh [facility] [address] [address] Assigned MTM Pharmacist 09/26/22 Dakota Tatum MD [address] [place] [address] 107975 Cardiovascular Disease 03/25/23 Dakota Tatum MD [address] [place] [address] Assigned Heart and Vascular Provider 05/01/23 [place] [address] [address], [facility] [address] [place] [address] Assigned Musculoskeletal Provider 04/12/24 documented as of this encounter
--- OUTSIDE RECORDS SUMMARY | 2024-06-23 00:25 | XMS_ITS | Encounter Summary ---
Author Organization [place] Address [address] [place] [address] Care Team Providers Care Installer Helper Name Role Phone Esperanza Gatica MD Primary Care Provider + Esperanza Gatica MD Unavailable +[phone] Esperanza Gatica MD Unavailable +[phone] Esperanza Gatica MD Unavailable +[phone] Esperanza Gatica MD Unavailable +442 Esperanza Gatica MD Unavailable +[phone] Esperanza Gatica MD Unavailable +[phone] Jesús Orourke MD Unavailable Alfreda RayC Primary Care Provider + Alfreda Ray PA-C Unavailable + [phone] Katrin Orellana PA-C Unavailable +[phone] Shanna VangC Unavailable +[phone] Fransisco Eddy MD Unavailable [phone] Esperanza Gatica MD Unavailable +[phone] Esperanza Gatica MD Unavailable +[phone] Katrin Orellana PA-C Unavailable [phone] Cristina Hsieh [facility] Unavailable Cory Alfreda Liu PA-C Unavailable +[phone] Ho Raymustapha Liu PA-C Unavailable +[phone] Cristina Hsieh [facility] Unavailable [phone] Dakota Tatum MD Unavailable [phone] Dakota Tatum MD Unavailable [phone] Srinivas Marie DO Unavailable [phone] Reason for Visit * Reason Onset Date Comments Refill Request 06/13/2015 Celebrex, Lisino pril Encounter Details Date Type Department Care Team (Late st Contact Info) Description 06/13/2015 MyC Refill [address], [address] [place] [address] [place] [address] [place] [address] Refill Request (Celebrex, Lisinopril) Social [...] Sex Assigned at Female 08/17/2018 7:56 AM FACILITIES FLIGHT CHECK PILOT Legal Sex Female 4:24 AM FACILITIES FLIGHT CHECK PILOT Gender Identity Female 08/17/2018 7:56 AM FACILITIES FLIGHT CHECK PILOT Sexual Orientation Straight 08/17/2018 7: 56 AM FACILITIES FLIGHT CHECK PILOT documented as of this encounter Miscellaneous Notes * Telephone Encounter - Leigha Rinaldi RN - 06/13/2015 9:16 AM CST Lisinopril, Celebrex Last Written Prescription Date: 03/17/2015 Last Fill Quantity: 90, # refills: 0 Last [place] [facility] [place] care provider: 04/08/2015 POTASSIUM Date Value Ref Range Status 07/10/2014 4.3 3.4 - 5.3 mmol/L Final CREATININE Date Value Ref Range Status 07/10/2014 0.89 0.52 - 1.04 mg/dL Final BP Readings from Last 3 Encounters: 04/08/15 112/60 12/06/14 126/64 08/07/14 130/88 Pres[place] approved [place] [facility] Refill Protocol. Leigha Rinaldi RN LITIES FLIGHT CHECK PILOT * Telephone Encounter - Leigha Rinaldi RN - 06/13/2015 9:16 AM [facility] Original authorizing provider: MD Alexandria Brannon would like a refill of the following medications: celecoxib (CELEBREX) 200 MG capsule [Esperanza Gatica MD] lisinopril-hydrochlorothiazide (PRINZIDE,ZESTORETIC) 10-12.5 MG per tablet [Esperanza Gatica MD] Preferred pharmacy: [id number] Comment: LITIES FLIGHT CHECK PILOT documented in this encounter Plan of Treatment Upcoming Encounters Date Type Department Care Team (Late st Contact Info) Description 09/07/2024 10:00 AM CDT Office Visit [facility] [address] [phone] Fransisco Eddy MD [address] [place] [address] 149995 03/29/2025 3:40 PM CDT Office Visit [address] [phone] Alfreda Ray PA-C [address] [place] [address] 465542 documented as of this encounter Visit Diagnoses Diagnosis Osteoarthritis Osteoarthrosis, unspecified whether generalized or localized, unspecified site HTN (hypertension), benign Essential hypertension, benign documented in this encounter Additional Health Concerns Infection Onset Date Last Indicated Resolved Time Rule Out COVID-19 05/08/2021 05/08/2021 05/09/2021 9:08 PM FACILITIES FLIGHT CHECK PILOT documented as of this encounter Care Teams Installer Helper Relationship Specialty Start Date End Date Esperanza Gatica MD PCP - General Family Practice 10/13/11 12/29/21 [place] [address] [place] [address] PCP - Assigned PCP 12/05/17 08/23/18 Alfreda Ray PA-C [address] [place] [address]20 PCP - General Family Medicine 12/30/21 [place] [address] [place] [address] Assigned PCP 12/05/17 09/30/19 [place] [address] [place] [address] Assigned PCP 10/01/19 03/02/20 [place] [address] [place] [address] Assigned PCP 03/03/20 05/25/20 [place] [address] [place] [address] Assigned PCP 05/26/20 09/28/20 [place] [address] [place] [address] Assigned PCP 09/29/20 07/31/22 [place] [address] [place] [address] Assigned Musculoskeletal Provider 10/20/20 04/17/22 Alfreda Ray PA-C 4151 [place], [place] 134722 Referring Physician Family Medicine 12/31/21 Katrin Orellana PA-C [address] [place] [address] 98 [place], [place] 589745 Physician Diabetes Clinical Manager Dermatology 12/31/21 Shanna Vang PA-C [address] 800664 Assigned Cancer Care Provider 01/10/22 Fransisco Eddy MD [address] [place] [address] 947335 Assigned Rheumatology Provider 05/09/22 [place] [address] [place] GARCIA [address] Assigned Pain Medication Provider 06/29/22 09/04/22 [place] [address] [place] [address] Assigned PCP 08/15/22 08/28/22 Katrin Orellana PA-C 420 [facility] 98 [place] [address] Assigned Surgical Provider 08/15/22 02/10/24 Cristina Hsieh [facility] 3305 [facility] LISBETH HERNANDEZ [address] Pharmacist Pharmacist 09/07/22 Alfreda Ray PA-C [address] [place] [address] 230382 Assigned Pain Medication Provider 09/05/22 09/10/23 Alfreda Ray PA-C [address] [place] [address] 686172 Assigned PCP 08/29/22 Cristina Hsieh, [facility] [address] [address] Assigned MTM Pharmacist 09/26/22 Dakota Tatum MD [address] [place] [address] Cardiovascular Disease 03/25/23 Dakota Tatum MD 6 [place] [address] Assigned Heart and Vascular Provider 05/01/23 [place] [address] [address], [facility] 300 [place] [address] Assigned Musculoskeletal Provider 04/12/24 documented as of this encounter
--- OUTSIDE RECORDS SUMMARY | 2024-06-23 00:25 | XMS_ITS | Encounter Summary ---
Author Organization [facility] Address [address] [place] [address] Care Team Providers Care Metal Leaf Layer Name Role Phone Esperanza Gatica MD Primary Care Provider + Esperanza Gatica MD Unavailable +[phone] Esperanza Gatica MD Unavailable +[phone] Esperanza Gatica MD Unavailable +[phone] Esperanza Gatica MD Unavailable +208 Esperanza Gatica MD Unavailable +673 Esperanza Gatica MD Unavailable +[phone] Jesús Orourke MD Unavailable Alfreda RayC Primary Care Provider + Alfreda Ray PA-C Unavailable + [phone] Katrin Orellana PA-C Unavailable +[phone] Shanna VangC Unavailable +[phone] Fransisco Eddy MD Unavailable +[phone] Esperanza Gatica MD Unavailable +[phone] Esperanza Gatica MD Unavailable +[phone] Katrin Orellana PA-C Unavailable Cristina Hsieh [facility] Unavailable Cory Alfreda Liu PA-C Unavailable +[phone] Ho Raymustapha Liu PA-C Unavailable +[phone] Cristina Hsieh [facility] Unavailable [phone] Dakota Tatum MD Unavailable [phone] Dakota Tatum MD Unavailable [phone] Srinivas Marie DO Unavailable [phone] Reason for Visit * Reason Onset Date Comments Refill Request 03/12/2016 Lisinopril-HCTZ Encounter Details Date Type Department Care Team (Late st Contact Info) Description 03/12/2016 MyC Refill [address], [address] [place] [address] [place] [address] [place] [address] Refill Request (Lisinopril-HCTZ) Social History [...] Assigned at Female 08/17/2018 7:56 AM CASH CROP FARMER Legal Sex Female 4:24 AM CASH CROP FARMER Gender Identity Female 08/17/2018 7:56 AM CASH CROP FARMER Sexual Orientation Straight 08/17/2018 7: 56 AM CASH CROP FARMER documented as of this encounter Miscellaneous Notes * Telephone Encounter - Leigha Rinaldi RN - 03/12/2016 11:44 AM CDT Lisinopril-HCTZ Last Written Prescription Date: 08/13/2015 Last Fill Quantity: 90, # refills: 1 Last Office Visit with [facility] or [facility] prescribing provider: 03/03/2016 POTASSIUM Date Value Ref Range Status 08/13/2015 3.9 3.4 - 5.3 mmol/L Final CREATININE Date Value Ref Range Status 08/13/2015 0.87 0.52 - 1.04 mg/dL Final BP Readings from Last 3 Encounters: 03/03/16 134/64 08/13/15 136/66 04/08/15 112/60 Prescription approved per [facility] Refill Protocol. Leigha Rinaldi RN * Telephone Encounter - Leigha Rinaldi RN - 03/12/2016 11:44 AM CDTMessage from [facility]: Original authorizing provider: MD Alexandria Brannon would like a refill of the following medications: lisinopril-hydrochlorothiazide (PRINZIDE,ZESTORETIC) 10-12.5 MG per tablet [Esperanza Gatica MD] Preferred pharmacy: [facility] [address] Comment: documented in this encounter Plan of Treatment Upcoming Encounters Date Type Department Care Team (Late st Contact Info) Description 09/07/2024 10:00 AM CDT Office Visit [facility] [address] [phone] Fransisco Eddy MD [address] [place] [address] 932785 03/29/2025 3:40 PM CDT Office Visit [address] [phone] Alfreda Ray PA-C [address] [place] [address] 436292 documented as of this encounter Visit Diagnoses Diagnosis HTN (hypertension), benign Essential hypertension, benign documented in this encounter Additional Health Concerns Infection Onset Date Last Indicated Resolved Time Rule Out COVID-19 05/08/202105/0805/08/2021 05/09/2021 9:08 PM CASH CROP FARMER Assessment Noted Time PHQ-9 Depression Total Score: 0 08/14/19 16 8:10 AM CASH CROP FARMER documented as of this encounter Care Teams Metal Leaf Layer Relationship Specialty Start Date End Date Esperanza Gatica MD PCP - General Family Practice 10/13/11 12/29/21 [place] [address] [place] [address] PCP - Assigned PCP 12/05/17 08/23/18 Alfreda Ray PA-C [address] [place] [address] PCP - General Family Medicine 12/30/21 [place] [address] [place] [address] Assigned PCP 12/05/17 09/30/19 [place] [address] [place] [address] Assigned PCP 10/01/19 03/02/20 [place] [address] [place] [address] Assigned PCP 03/03/20 05/25/20 [place] [address] [place] [address] Assigned PCP 05/26/20 09/28/20 [place] [address] [place] [address] Assigned PCP 09/29/20 07/31/22 [place] [address] [place] [address] Assigned Musculoskeletal Provider 10/20/20 04/17/22 Alfreda Ray PA-C [address] [place] [address] 428622 Referring Physician Family Medicine 12/31/21 Katrin Orellana PA-C [address] [place] [address] 98 [place], [place] 058[address] Physician Supervisor Aluminum Fabrication Dermatology 12/31/21 Shanna Vang PA-C [address] 827514 Assigned Cancer Care Provider 01/10/22 Fransisco Eddy MD [address] [place] [address] 999275 Assigned Rheumatology Provider 05/09/22 [place] [address] [address] GARCIA [address] Assigned Pain Medication Provider 06/29/22 09/04/22 [place] [address] [place] [address] Assigned PCP 08/15/22 08/28/22 Katrin Orellana PA-C 420 [facility] 98 [place] [address] Assigned Surgical Provider 08/15/22 02/10/24 Cristina Hsieh [facility] 3305 [facility] LISBETH HERNANDEZ [address] Pharmacist Pharmacist 09/07/22 Alfreda Ray PA-C [address] [place] [address] 429662 Assigned Pain Medication Provider 09/05/22 09/10/23 Alfreda Ray PA-C [address] [place] [address] 941372 Assigned PCP 08/29/22 Cristina Hsieh, [facility] [address] [address] Assigned MTM Pharmacist 09/26/22 Dakota Tatum MD 6 [place] [address] Cardiovascular Disease 03/25/23 Dakota Tatum MD 6 [place] [address] Assigned Heart and Vascular Provider 05/01/23 [place] [address] [facility] 300 [place] [address] Assigned Musculoskeletal Provider 04/12/24 documented as of this encounter
--- OUTSIDE RECORDS SUMMARY | 2024-06-23 00:25 | XMS_ITS | Encounter Summary ---
Author Organization [facility] Address [address] [place] [address] 6[address] Care Team Providers Care Director Digital Marketing Name Role Phone Esperanza Gatica MD Primary Care Provider + Esperanza Gatica MD Unavailable +[phone] Esperanza Gatica MD Unavailable +[phone] Esperanza Gatica MD Unavailable +[phone] Esperanza Gatica MD Unavailable +[phone] Esperanza Gatica MD Unavailable +[phone] Esperanza Gatica MD Unavailable +[phone] Jesús Orourke MD Unavailable Alfreda RayC Primary Care Provider + Alfreda Ray PA-C Unavailable + [phone] Katrin Orellana PA-C Unavailable +[phone] Shanna VangC Unavailable +[phone] Fransisco Eddy MD Unavailable +[phone] Esperanza Gatica MD Unavailable +[phone] Esperanza Gatica MD Unavailable +[phone] Katrin Orellana PA-C Unavailable Cristina Hsieh [facility] Unavailable RayAlfreda PA-C Unavailable [phone] Cory Alfreda Liu PA-C Unavailable [phone] Cristina Hsieh [facility] Unavailable Dakota Tatum MD Unavailable Dakota Tatum MD Unavailable Srinivas Marie DO Unavailable [phone] Encounter Details Date Type Department Care Team (Late st Contact Info) Description 06/30/2016 MyC Medical Advice [address], [address] [place] [address] [place] [address] [place] [address] Social History Tobacco Use Types [...] Assigned at Female 08/17/2018 7:56 AM BUSINESS PROCESS LEAD Legal Sex Female 4:24 AM BUSINESS PROCESS LEAD Gender Identity Female 08/17/2018 7:56 AM BUSINESS PROCESS LEAD Sexual Orientation Straight 08/17/2018 7: 56 AM BUSINESS PROCESS LEAD documented as of this encounter Plan of Treatment Upcoming Encounters Date Type Department Care Team (Late st Contact Info) Description 09/07/2024 10:00 AM CDT Office Visit [facility] [address] [address] Fransisco Eddy MD [address] [place] [address] 03/29/2025 3:40 PM CDT Office Visit [address] [address] Alfreda Ray PA-C [address] [place] [address] 127622 documented as of this encounter Visit Diagnoses Not on filedocumented in this encounter Additional Health Concerns Infection Onset Date Last Indicated Resolved Time Rule Out COVID-19 05/08/2021 05/08/2021 05/09/2021 9:08 PM BUSINESS PROCESS LEAD Assessment Noted Time PHQ-9 Depression Total Score: 0 08/14/19 16 8:10 AM BUSINESS PROCESS LEAD documented as of this encounter Care Teams Director Digital Marketing Relationship Specialty Start Date End Date Esperanza Gatica MD PCP - General Family Practice 10/13/11 12/29/21 [place] [address] [address] [place]ARCIA [address] PCP - Assigned PCP 12/05/17 08/23/18 Alfreda Ray PA-C [address] [place] [address] [id number] PCP - General Family Medicine 12/30/21 [place] [address] [address] [address] Assigned PCP 12/05/17 09/30/19 [place] [address] [address] [address] Assigned PCP 10/01/19 03/02/20 [place] [address] [place] [address] Assigned PCP 03/03/20 05/25/20 [place] [address] [place] [address] Assigned PCP 05/26/20 09/28/20 [place] [address] [place] [address] Assigned PCP 09/29/20 07/31/22 [place] [address] [facility] [place] [address] Assigned Musculoskeletal Provider 10/20/20 04/17/22 Alfreda Ray PA-C [address] [place] [address] 469642 Referring Physician Family Medicine 12/31/21 Katrin Orellana PA-C [address] [place] [address] 934005 Physician Multimedia Coordinator Dermatology 12/31/21 Shanna Vang PA-C [address] [place] [address] Assigned Cancer Care Provider 01/10/22 Fransisco Eddy MD [address] [place] [address] 160325 Assigned Rheumatology Provider 05/09/22 [place] [address] [place] [address] Assigned Pain Medication Provider 06/29/22 09/04/22 [place] [address] [place] [address] Assigned PCP 08/15/22 08/28/22 Katrin Orellana PA-C [address] [place] [address] 98 [place], [place] 377225 Assigned Surgical Provider 08/15/22 02/10/24 Cristina Hsieh [facility] [address] [facility] LISBETH HERNANDEZ [address] Pharmacist Pharmacist 09/07/22 Alfreda Ray PA-C [address] [place] [address] 347112 Assigned Pain Medication Provider 09/05/22 09/10/23 Alfreda Ray PA-C [address] [place] [address] Assigned PCP 08/29/22 Cristina Hsieh, [facility] [address] [address] Assigned MTM Pharmacist 09/26/22 Dakota Tatum MD [address] [place] [address] Cardiovascular Disease 03/25/23 Dakota Tatum MD [address] [place] [address] Assigned Heart and Vascular Provider 05/01/23 [place] [address] [address], [address] [address] Assigned Musculoskeletal Provider 04/12/24 documented as of this encounter
--- OUTSIDE RECORDS SUMMARY | 2024-06-23 00:25 | XMS_ITS | Encounter Summary ---
Author Organization [facility] Address [address] [place] [address] Care Team Providers Care Process Helper Name Role Phone Esperanza Gatica MD Primary Care Provider + Esperanza Gatica MD Unavailable +[phone] Esperanza Gatica MD Unavailable +[phone] Esperanza Gatica MD Unavailable +[phone] Esperanza Gatica MD Unavailable +[phone] Esperanza Gatica MD Unavailable +[phone] Esperanza Gatica MD Unavailable +[phone] Jesús Orourke MD Unavailable Alfreda RayC Primary Care Provider + Alfreda Ray PA-C Unavailable + [phone] Katrin Orellana PA-C Unavailable [phone] Shanna VangC Unavailable +[phone] Fransisco Eddy MD Unavailable [phone] Esperanza Gatica MD Unavailable +[phone] Esperanza Gatica MD Unavailable +[phone] Katrin Orellana PA-C Unavailable [phone] Cristina Hsieh [facility] Unavailable Cory Alfreda Liu PA-C Unavailable Alfreda Ray Alexa KING Unavailable [phone] Cristina Hsieh [facility] Unavailable Dakota Tatum MD Unavailable Dakota Tatum MD Unavailable Srinivas Marie DO Unavailable [phone] Reason for Visit * Reason Onset Date Comments Medication Refill 08/12/2017 traZODone and temazepam Encounter Details Date Type Department Care Team (Late st Contact Info) Description 08/12/[address], [address] [place] [address] [place] [address] [place] [address] Medication Refill (traZODone and temazepam [...] Sex Assigned at Female 08/17/2018 7:56 AM CORRUGATOR SUPERVISOR Legal Sex Female 4:24 AM CORRUGATOR SUPERVISOR Gender Identity Female 08/17/2018 7:56 AM CORRUGATOR SUPERVISOR Sexual Orientation Straight 08/17/2018 7: 56 AM CORRUGATOR SUPERVISOR documented as of this encounter Miscellaneous Notes * Telephone Encounter - Jacqui Whiteside CMA - 08/13/2017 4:22 PM CORRUGATOR SUPERVISOR Faxed temazepam to [facility] at [phone]. Jacqui Whiteside CMA UGATOR SUPERVISOR * Telephone Encounter - Leigha Rinaldi RN - 08/13/2017 3:20 PM CST .Routing refill request to provider for review/approval because: Drug not on the [facility] refill protocol : TEMAZEPAM Leigha Rinaldi RN UGATOR SUPERVISOR * Telephone Encounter - Diya Stone - 08/12/2017 2:22 PM CST traZODone (DESYREL) 50 MG tablet Sig: Take 1 capsule (7.5 mg) by mouth nightly as needed for sleep Last Written Prescription Date: 04/22/17 Last Fill Quantity: 30, # refills: 3 Last Office Visit with [facility], [facility] or [facility] prescribing provider: 07/02/2017 Routing refill request to provider for review/approval because: Drug not on the [facility], [facility] or [facility] refill protocol or controlled substance Requested Prescriptions [...] No positive test in past 12 months UGATOR SUPERVISOR documented in this encounter Plan of Treatment Upcoming Encounters Date Type Department Care Team (Late st Contact Info) Description 09/07/2024 10:00 AM CDT Office Visit [facility] [address] [place]ER [phone] Fransisco Eddy MD [address] [place] [address] 998385 03/29/2025 3:40 PM CDT Office Visit [address] [phone] Alfreda Ray PA-C [address] [place] [address] [phone] documented as of this encounter Visit Diagnoses Diagnosis Insomnia, unspecified type documented in this encounter Additional Health Concerns Infection Onset Date Last Indicated Resolved Time Rule Out COVID-19 05/08/2021 05/08/2021 05/09/2021 9:08 PM CORRUGATOR SUPERVISOR Assessment Noted Time PHQ-9 Depression Total Score: 0 08/18/19 17 7:09 AM CORRUGATOR SUPERVISOR documented as of this encounter Care Teams Process Helper Relationship Specialty Start Date End Date Esperanza Gatica MD PCP - General Family Practice 10/13/11 12/29/21 [place] [address] [place] [address] PCP - Assigned PCP 12/05/17 08/23/18 Alfreda Ray PA-C [address] [place] [address] PCP - General Family Medicine 12/30/21 [place] [address] [place] [address] Assigned PCP 12/05/17 09/30/19 [place] [address] [place] [address] Assigned PCP 10/01/19 03/02/20 [place] [address] [place] [address] Assigned PCP 03/03/20 05/25/20 [place] [address] [place] [address] Assigned PCP 05/26/20 09/28/20 [place] [address] [place] [address] Assigned PCP 09/29/20 07/31/22 Jesú[place] [address] [place] [address] Assigned Musculoskeletal Provider 10/20/20 04/17/22 Alfreda Ray PA-C [address] [place], [place] 919932 Referring Physician Family Medicine 12/31/21 Katrin Orellana PA-C [address] [facility] 98 [place] [address] Physician Quarter Folder Dermatology 12/31/21 Shanna Vang PA-C [address] [place] [address] Assigned Cancer Care Provider 01/10/22 Fransisco Eddy MD [address] [place] [address] 88 [place] [address] Assigned Rheumatology Provider 05/09/22 [place] [address] [place] [address] Assigned Pain Medication Provider 06/29/22 09/04/22 [place] [address] [place] [address] Assigned PCP 08/15/22 08/28/22 Katrin Orellana PA-C [address] [place] [address] 98 [place] [address] Assigned Surgical Provider 08/15/22 02/10/24 Cristina Hsieh, [facility] [address] [place] [address] Pharmacist Pharmacist 09/07/22 Alfreda Ray PA-C [address] [place] [address] 811692 Assigned Pain Medication Provider 09/05/22 09/10/23 Alfreda Ray PA-C [address] [place] [address] 516792 Assigned PCP 08/29/22 Cristina Hsieh, [facility] [address] [facility] [address] [place] [address] Assigned MTM Pharmacist 09/26/22 Dakota Tatum MD [address] [place] [address] 667275 Cardiovascular Disease 03/25/23 Dakota Tatum MD [address] [place] [address] 976805 Assigned Heart and Vascular Provider 05/01/23 [place] [address] [address], [facility] [address] [place] [address] Assigned Musculoskeletal Provider 04/12/24 documented as of this encounter
--- OUTSIDE RECORDS SUMMARY | 2024-06-23 00:25 | XMS_ITS | Encounter Summary ---
Author Organization [employer] Address [address] [place] [address] Care Team Providers Care Silk Top Hat Body Maker Name Role Phone Esperanza Gatica MD Primary Care Provider + Esperanza Gatica MD Unavailable +[phone] Esperanza Gatica MD Unavailable +[phone] Esperanza Gatica MD Unavailable +[phone] Esperanza Gatica MD Unavailable +[phone] Esperanza Gatica MD Unavailable +[phone] Esperanza Gatica MD Unavailable +[phone] Jesús Orourke MD Unavailable Alfreda RayC Primary Care Provider + Alfreda Ray PA-C Unavailable + [phone] Katrin Orellana PA-C Unavailable [phone] Shanna VangC Unavailable +[phone] Fransisco Eddy MD Unavailable [phone] Esperanza Gatica MD Unavailable +[phone] Esperanza Gatica MD Unavailable +[phone] Katrin Orellana PA-C Unavailable [phone] Cristina Hsieh [facility] Unavailable Alfreda Ray PA-C Unavailable [phone] Alfreda Ray PA-C Unavailable [phone] Cristina Hsieh [facility] Unavailable Dakota Tatum MD Unavailable Dakota Tatum MD Unavailable Srinivas Marie DO Unavailable [phone] Encounter Details Date Type Department Care Team (Late st Contact Info) Description 08/17/2017 MyC Medical Advice [address], [address] [place] [address] Cata Olivo MA Social History [...] Sex Assigned at Female 08/17/2018 7:56 AM 2 YEAR OLDS PRESCHOOL TEACHER Legal Sex Female 4:24 AM 2 YEAR OLDS PRESCHOOL TEACHER Gender Identity Female 08/17/2018 7:56 AM 2 YEAR OLDS PRESCHOOL TEACHER Sexual Orientation Straight 08/17/2018 7: 56 AM 2 YEAR OLDS PRESCHOOL TEACHER documented as of this encounter Plan of Treatment Upcoming Encounters Date Type Department Care Team (Late st Contact Info) Description 09/07/2024 10:00 AM CDT Office Visit [facility] [address] 200 [place] [phone] Fransisco Eddy MD [address] [place] [address] 03/29/2025 3:40 PM CDT Office Visit [address] [phone] Alfreda Ray PA-C [facility] [place] [address] documented as of this encounter Visit Diagnoses Not on filedocumented in this encounter Additional Health Concerns Infection Onset Date Last Indicated Resolved Time Rule Out COVID-19 05/08/2021 05/08/2021 05/09/2021 9:08 PM 2 YEAR OLDS PRESCHOOL TEACHER Assessment Noted Time PHQ-9 Depression Total Score: 0 08/18/19 17 7:09 AM 2 YEAR OLDS PRESCHOOL TEACHER documented as of this encounter Care Teams Silk Top Hat Body Maker Relationship Specialty Start Date End Date Esperanza Gatica MD PCP - General Family Practice 10/13/11 12/29/21 [place] [address] [address] [address] PCP - Assigned PCP 12/05/17 08/23/18 Alfreda Ray PA-C [address] [place] [address]47 PCP - General Family Medicine 12/30/21 [place] [address] [address] [address] Assigned PCP 12/05/17 09/30/19 [place] [address] [address] [address] Assigned PCP 10/01/19 03/02/20 [place] [address] [address] [address] Assigned PCP 03/03/20 05/25/20 [place] [address] [place] [address] Assigned PCP 05/26/20 09/28/20 [place] [address] [address] [address] Assigned PCP 09/29/20 07/31/22 [place] [address] [facility] [place] [address] Assigned Musculoskeletal Provider 10/20/20 04/17/22 Alfreda Ray PA-C [address] [place] [address] 479682 Referring Physician Family Medicine 12/31/21 Katrin Orellana PA-C [address] [place] [address] [phone] Physician Manufacturing Controls Engineer Dermatology 12/31/21 Shanna Vang PA-C [address] 244924 Assigned Cancer Care Provider 01/10/22 Fransisco Eddy MD [address] [place] [address] 851385 Assigned Rheumatology Provider 05/09/22 [place] [address] [place] [address] Assigned Pain Medication Provider 06/29/22 09/04/22 [place] [address] [place] [address] Assigned PCP 08/15/22 08/28/22 Katrin Orellana PA-C [address] [place] [address] 477465 Assigned Surgical Provider 08/15/22 02/10/24 Cristina Hsieh [facility] [address] [place] [address] LISBETH HERNANDEZ [address] Pharmacist Pharmacist 09/07/22 Alfreda Ray PA-C [address] [place] [address] 961432 Assigned Pain Medication Provider 09/05/22 09/10/23 Alfreda Ray PA-C [address] [place] [address] 090152 Assigned PCP 08/29/22 Cristina Hsieh R[facility] [address] [place] [address] [phone] Assigned MTM Pharmacist 09/26/22 Dakota Tatum MD [address] [place] [address] 129625 Cardiovascular Disease 03/25/23 Dakota Tatum MD [address] [place] [address] Assigned Heart and Vascular Provider 05/01/23 [place] [address] [address], [address] [address] Assigned Musculoskeletal Provider 04/12/24 documented as of this encounter
--- OUTSIDE RECORDS SUMMARY | 2024-06-23 00:25 | XMS_ITS | Encounter Summary ---
Author Organization [facility] Address [address] [place] [address] Care Team Providers Care Java Manager Name Role Phone Esperanza Gatica MD Primary Care Provider + Esperanza Gatica MD Unavailable +[phone] Esperanza Gatica MD Unavailable +[phone] Esperanza Gatica MD Unavailable +[phone] Esperanza Gatica MD Unavailable +[phone] Espernaza Gatica MD Unavailable +[phone] Esperanza Gatica MD Unavailable +[phone] Jesús Orourke MD Unavailable Alfreda RayC Primary Care Provider + Alfreda Ray PA-C Unavailable + [phone] Katrin Orellana PA-C Unavailable +[phone] Shanna VangC Unavailable +[phone] Fransisco Eddy MD Unavailable [phone] Esperanza Gatica MD Unavailable +[phone] Esperanza Gatica MD Unavailable +[phone] Katrin Orellana PA-C Unavailable Cristina Hsieh [facility] Unavailable Cory Alfreda Liu PA-C Unavailable [phone] Alfreda Ray lAexa KING Unavailable [phone] Cristina Hsieh [facility] Unavailable Dakota Tatum MD Unavailable Dakota Tatum MD Unavailable Srinivas Marie DO Unavailable [phone] Reason for Visit * Reason Onset Date Comments Medication Refill 08/26/2017 lisinopril-hyd rochlorothiazide (PRINZIDE/ZESTORETIC) 10-12.5 MG per tablet Encounter Details Date Type Department Care Team (Late st Contact Info) Description 08/26/[address], [address] [place] [address] [place] [address] [place] [address] Medication Refill (lisinopril-hydrochloro thiazide (PRINZIDE/ZESTORETIC) [...] Sex Assigned at Female 08/17/2018 7:56 AM MACHINIST SUPERVISOR Legal Sex Female 4:24 AM MACHINIST SUPERVISOR Gender Identity Female 08/17/2018 7:56 AM MACHINIST SUPERVISOR Sexual Orientation Straight 08/17/2018 7: 56 AM MACHINIST SUPERVISOR documented as of this encounter Miscellaneous Notes * Telephone Encounter - Leigha Rinaldi RN - 08/26/2017 11:23 AM CST Prescription approved per [facility] Refill Protocol. Leigha Rinaldi RN INIST SUPERVISOR * Telephone Encounter - Diya Stone [...] No positive test in past 12 months INIST SUPERVISOR documented in this encounter Plan of Treatment Upcoming Encounters Date Type Department Care Team (Late st Contact Info) Description 09/07/2024 10:00 AM CDT Office Visit [address] [address] Fransisco Eddy MD [address] [place] [address] 03/29/2025 3:40 PM CDT Office Visit [address] [phone] Alfreda Ray PA-C [address] [place] [address] 764202 documented as of this encounter Visit Diagnoses Diagnosis HTN (hypertension), benign Essential hypertension, benign documented in this encounter Additional Health Concerns Infection Onset Date Last Indicated Resolved Time Rule Out COVID-19 05/08/2021 05/08/2021 05/09/2021 9:08 PM MACHINIST SUPERVISOR Assessment Noted Time PHQ-9 Depression Total Score: 0 08/18/19 7:09 AM MACHINIST SUPERVISOR documented as of this encounter Care Teams Java Manager Relationship Specialty Start Date End Date Esperanza Gatica MD PCP - General Family Practice 10/13/11 12/29/21 [place] [address] [address]ARCIA [address] PCP - Assigned PCP 12/05/17 08/23/18 Alfreda Ray PA-C [address] [place] [address] PCP - General Family Medicine 12/30/21 [place] [address] [address] [address] Assigned PCP 12/05/17 09/30/19 [place] [address] [address] GARCIA [address] Assigned PCP 10/01/19 03/02/20 [place] [address] [place] [address] Assigned PCP 03/03/20 05/25/20 [place] [address] [place] [address] Assigned PCP 05/26/20 09/28/20 [place] [address] [place] [address] Assigned PCP 09/29/20 07/31/22 [place] [address] [place] [address] [address] Assigned Musculoskeletal Provider 10/20/20 04/17/22 Alfreda Ray PA-C [address] [place] [address] [phone] Referring Physician Family Medicine 12/31/21 Katrin Orellana PA-C [address] [place] [address] [phone] Physician Bilingual Teacher Dermatology 12/31/21 Shanna Vang PA-C [address] [place] [address] [phone] Assigned Cancer Care Provider 01/10/22 Fransisco Eddy MD [address] [place] [address] [phone] Assigned Rheumatology Provider 05/09/22 [place] [address] [address] [place] [address] Assigned Pain Medication Provider 06/29/22 09/04/22 [place] [address] [place] [address] Assigned PCP 08/15/22 08/28/22 Katrin Orellana PA-C [address] [place] [address] Assigned Surgical Provider 08/15/22 02/10/24 Cristina Hsieh [facility] [address] [place] [address] LISBETH HERNANDEZ [address] Pharmacist Pharmacist 09/07/22 Alfreda Ray PA-C [address] [place] [address] 006372 Assigned Pain Medication Provider 09/05/22 09/10/23 Alfreda Ray PA-C [address] [place] [address] Assigned PCP 08/29/22 Cristina Hsieh [facility] [address] [id number] Assigned MTM Pharmacist 09/26/22 Dakota Tatum MD [address] [place] [address] Cardiovascular Disease 03/25/23 Dakota Tatum MD [address] [place], [place] 939775 Assigned Heart and Vascular Provider 05/01/23 [place] [address] [address], [address] [address] Assigned Musculoskeletal Provider 04/12/24 documented as of this encounter
--- OUTSIDE RECORDS SUMMARY | 2024-06-23 00:25 | XMS_ITS | Encounter Summary ---
Author Organization [place] Address [address] [place] [address] Care Team Providers Care Seed Sales Manager Name Role Phone Esperanza Gatica MD Primary Care Provider + Esperanza Gatica MD Unavailable +[phone] Esperanza Gatica MD Unavailable +[phone] Esperanza Gatica MD Unavailable +[phone] Esperanza Gatica MD Unavailable +[phone] Esperanza Gatica MD Unavailable +[phone] Esperanza Gatica MD Unavailable +[phone] Jesús Orourke MD Unavailable Alfreda RayC Primary Care Provider + Alfreda Ray PA-C Unavailable + [phone] Katrin Orellana PA-C Unavailable +[phone] Shanna VangC Unavailable +[phone] Fransisco Eddy MD Unavailable +[phone] Esperazna Gatica MD Unavailable +[phone] Esperanza Gatica MD Unavailable +[phone] Katrin Orellana PA-C Unavailable Cristina Hsieh [facility] Unavailable Cory Alfreda Liu PA-C Unavailable Ho Raymustapha Liu PA-C Unavailable +[phone] Cristina Hsieh [facility] Unavailable Dakota Tatum MD Unavailable Dakota Tatum MD Unavailable Srinivas Marie DO Unavailable [phone] Reason for Visit * Reason Onset Date Comments Sinus Problem 06/30/2016 Requesting antib iotic Encounter Details Date Type Department Care Team (Late st Contact Info) Description 06/30/2016 MyC Medical Advice [address], [facility] [address] [place] [address] [place] [address] [place] [address] Sinus Problem (Requesting antibiotic) Social [...] Assigned at Female 08/17/2018 7:56 AM MARKETING CLERK Legal Sex Female 4:24 AM MARKETING CLERK Gender Identity Female 08/17/2018 7:56 AM MARKETING CLERK Sexual Orientation Straight 08/17/2018 7: 56 AM MARKETING CLERK documented as of this encounter Miscellaneous Notes * Telephone Encounter - Leigha Rinaldi RN - 06/30/2016 11:34 AM CST Called patient and advised Dr. Gatica would see her if she came over now. Leigha Rinaldi RN ETING CLERK * Telephone Encounter - Esperanza Gatica MD - 06/30/2016 9:03 AM MARKETING CLERK Recommend appointment with me. I recommend we do an exam, to double check ears, throat, lungs etc. ianmbalta was started in feb and recommended follow up for that med, we can discuss this as well. Any way she can come in today? ETING CLERK documented in this encounter Plan of Treatment Upcoming Encounters Date Type Department Care Team (Late st Contact Info) Description 09/07/2024 10:00 AM CDT Office Visit [facility] [address] [place] [phone] Fransisco Eddy MD [address] [place] [address] 03/29/2025 3:40 PM CDT Office Visit [address] [phone] Alfreda Ray PA-C [address] [place] [address] [phone] documented as of this encounter Visit Diagnoses Not on filedocumented in this encounter Additional Health Concerns Infection Onset Date Last Indicated Resolved Time Rule Out COVID-19 05/08/2021 05/08/2021 05/09/2021 9:08 PM MARKETING CLERK Assessment Noted Time PHQ-9 Depression Total Score: 0 08/14/19 16 8:10 AM MARKETING CLERK documented as of this encounter Care Teams Seed Sales Manager Relationship Specialty Start Date End Date Esperanza Gatica MD PCP - General Family Practice 10/13/11 12/29/21 [place] [address] [place] [address] PCP - Assigned PCP 12/05/17 08/23/18 Alfreda Ray PA-C [address] [place] [address] PCP - General Family Medicine 12/30/21 [place] [address] [place] [address] Assigned PCP 12/05/17 09/30/19 [place] [address] [place] [address] Assigned PCP 10/01/19 03/02/20 [place] [address] [place] [address] Assigned PCP 03/03/20 05/25/20 [place] [address] [place] [address] Assigned PCP 05/26/20 09/28/20 [place] [address] [place] [address] Assigned PCP 09/29/20 07/31/22 [place] [address] [address] [place] [address] Assigned Musculoskeletal Provider 10/20/20 04/17/22 Alfreda Ray PA-C [address] [place] [address] Referring Physician Family Medicine 12/31/21 Katrin Orellana PA-C [address] [place] [address] Physician Morning Show Host Dermatology 12/31/21 Shanna Vang PA-C [facility] . [address] [place] [address] Assigned Cancer Care Provider 01/10/22 Fransisco Eddy MD [address] [place] [address] 185475 Assigned Rheumatology Provider 05/09/22 [place] [address] [place] [address] Assigned Pain Medication Provider 06/29/22 09/04/22 [place] [address] [place] [address] Assigned PCP 08/15/22 08/28/22 Katrin Orellana PA-C [address] [place] [address]23 Assigned Surgical Provider 08/15/22 02/10/24 Cristina Hsieh, [facility] [address] [place] [address] [place] [address] Pharmacist Pharmacist 09/07/22 Alfreda Ray PA-C [address] [place] [address]15 Assigned Pain Medication Provider 09/05/22 09/10/23 Alfreda Ray PA-C [address] [place] [address] Assigned PCP 08/29/22 Cristina Hsieh, [facility] [address] [place] [address] Assigned MTM Pharmacist 09/26/22 Dakota Tatum MD [address] [place] [address]69[address] Cardiovascular Disease 03/25/23 Dakota Tatum MD [address] [place] [address] Assigned Heart and Vascular Provider 05/01/23 [place] [address] [address] Assigned Musculoskeletal Provider 04/12/24 documented as of this encounter
--- OUTSIDE RECORDS SUMMARY | 2024-06-23 00:25 | XMS_ITS | Encounter Summary ---
Author Organization [place] Address [address] [place] [address] Care Team Providers Care Sound Equipment Mechanic Name Role Phone Esperanza Gatica MD Primary Care Provider + Esperanza Gatica MD Unavailable +[phone] Esperanza Gatica MD Unavailable +[phone] Esperanza Gatica MD Unavailable +[phone] Esperanza Gatica MD Unavailable +[phone] Esperanza Gatica MD Unavailable +[phone] Esperanza Gatica MD Unavailable +[phone] Jesús Orourke MD Unavailable Alfreda RayC Primary Care Provider + Alfreda Ray PA-C Unavailable + [phone] Katrin Orellana PA-C Unavailable [phone] Shanna VangC Unavailable +[phone] Fransisco Eddy MD Unavailable +[phone] Esperanza Gatica MD Unavailable +[phone] Esperanza Gatica MD Unavailable +[phone] Katrin Orellana PA-C Unavailable Cristina Hsieh [facility] Unavailable RayAlfreda PA-C Unavailable [phone] Cory Alfreda Liu PA-C Unavailable [phone] Cristina Hsieh [facility] Unavailable Dakota Tatum MD Unavailable Dakota Tatum MD Unavailable Srinivas Marie DO Unavailable [phone] Encounter Details Date Type Department Care Team (Late st Contact Info) Description 08/17/2017 MyC Medical Advice [address], [address] [place] [address] [place] [address] [place] [address] Social History Tobacco Use Types [...] Sex Assigned at Female 08/17/2018 7:56 AM LINE MAINTENANCE Legal Sex Female 4:24 AM LINE MAINTENANCE Gender Identity Female 08/17/2018 7:56 AM LINE MAINTENANCE Sexual Orientation Straight 08/17/2018 7: 56 AM LINE MAINTENANCE documented as of this encounter Plan of Treatment Upcoming Encounters Date Type Department Care Team (Late st Contact Info) Description 09/07/2024 10:00 AM CDT Office Visit [facility] [address] [phone] Fransisco Eddy MD [address] [place] [address] 03/29/2025 3:40 PM CDT Office Visit [address] [address] Alfreda Ray PA-C [address] [place] [address] 890992 documented as of this encounter Visit Diagnoses Not on filedocumented in this encounter Additional Health Concerns Infection Onset Date Last Indicated Resolved Time Rule Out COVID-19 05/08/2021 05/08/2021 05/09/2021 9:08 PM LINE MAINTENANCE Assessment Noted Time PHQ-9 Depression Total Score: 0 08/18/19 17 7:09 AM LINE MAINTENANCE documented as of this encounter Care Teams Sound Equipment Mechanic Relationship Specialty Start Date End Date Esperanza Gatica MD PCP - General Family Practice 10/13/11 12/29/21 [place] [address] [place] [address] PCP - Assigned PCP 12/05/17 08/23/18 Alfreda Ray PA-C [address] [place] [address] 222832 PCP - General Family Medicine 12/30/21 [place] [address] [address] [address] Assigned PCP 12/05/17 09/30/19 [place] [address] [address] [place] [address] Assigned PCP 10/01/19 03/02/20 [place] [address] [place] [address] Assigned PCP 03/03/20 05/25/20 [place] [address] [place] [address] Assigned PCP 05/26/20 09/28/20 [place] [address] [place] [address] Assigned PCP 09/29/20 07/31/22 Jesú[place] [address] [facility] [place] [address] Assigned Musculoskeletal Provider 10/20/20 04/17/22 Alfreda Ray PA-C [address] [place] [address] 058982 Referring Physician Family Medicine 12/31/21 Katrin Orellana PA-C [address] [place] [address] 104855 Physician Data Acquisition Technician Dermatology 12/31/21 Shanna Vang PA-C [address] [place] [address] Assigned Cancer Care Provider 01/10/22 Fransisco Eddy MD [address] [place] [address] 162295 Assigned Rheumatology Provider 05/09/22 [place] [address] [place] [address] Assigned Pain Medication Provider 06/29/22 09/04/22 [place] [address] [place] [address] Assigned PCP 08/15/22 08/28/22 Katrin Orellana PA-C [address] [place] [address] 98 [place], [place] 355605 Assigned Surgical Provider 08/15/22 02/10/24 Cristina Hsieh [facility] [address] [facility] [place]DEZ [address] Pharmacist Pharmacist 09/07/22 Alfreda Ray PA-C [address] [place] [address] 790142 Assigned Pain Medication Provider 09/05/22 09/10/23 Alfreda Ray PA-C [address] [place] [address] Assigned PCP 08/29/22 Cristina Hsieh, [facility] [address] [address] Assigned MTM Pharmacist 09/26/22 Dakota Tatum MD [address] [place] [address] Cardiovascular Disease 03/25/23 Dakota Tatum MD [address] [place] [address] Assigned Heart and Vascular Provider 05/01/23 [place] [address] [address], [address] [address] Assigned Musculoskeletal Provider 04/12/24 documented as of this encounter
--- OUTSIDE RECORDS SUMMARY | 2024-06-23 00:25 | XMS_ITS | Encounter Summary ---
Author Organization [place] Address [address] [place] [address] Care Team Providers Care Java Programmer Analyst Name Role Phone Esperanza Gatica MD Primary Care Provider + Esperanza Gatica MD Unavailable +[phone] Esperanza Gatica MD Unavailable +[phone] Esperanza Gatica MD Unavailable +[phone] Esperanza Gatica MD Unavailable +[phone] Esperanza Gatica MD Unavailable +[phone] Esperanza Gatica MD Unavailable +[phone] Jesús Orourke MD Unavailable Alfreda RayC Primary Care Provider + Alfreda Ray PA-C Unavailable + [phone] Katrin Orellana PA-C Unavailable [phone] Shanna VangC Unavailable +[phone] Fransisco Eddy MD Unavailable [phone] Esperanza Gatica MD Unavailable +[phone] Esperanza Gatica MD Unavailable +[phone] Katrin Orellana PA-C Unavailable Cristina Hsieh [facility] Unavailable RayAlfreda PA-C Unavailable [phone] Cory Alfreda Liu PA-C Unavailable [phone] Cristina Hsieh [facility] Unavailable Dakota Tatum MD Unavailable Dakota Tatum MD Unavailable Srinivas Marie DO Unavailable [phone] Encounter Details Date Type Department Care Team (Late st Contact Info) Description 08/17/2017 MyC Medical Advice [address], [address] [place] [address] [place] [address] [place] [address] Social History Tobacco Use Types [...] Sex Assigned at Female 08/17/2018 7:56 AM SERVICE TECH/WELDER Legal Sex Female 4:24 AM SERVICE TECH/WELDER Gender Identity Female 08/17/2018 7:56 AM SERVICE TECH/WELDER Sexual Orientation Straight 08/17/2018 7: 56 AM SERVICE TECH/WELDER documented as of this encounter Plan of Treatment Upcoming Encounters Date Type Department Care Team (Late st Contact Info) Description 09/07/2024 10:00 AM CDT Office Visit [facility] [address] [address] Fransisco Eddy MD [address] [place] [address] 03/29/2025 3:40 PM CDT Office Visit [address] [address] Alfreda Ray PA-C [address] [place] [address] 989402 documented as of this encounter Visit Diagnoses Not on filedocumented in this encounter Additional Health Concerns Infection Onset Date Last Indicated Resolved Time Rule Out COVID-19 05/08/2021 05/08/2021 05/09/2021 9:08 PM SERVICE TECH/WELDER Assessment Noted Time PHQ-9 Depression Total Score: 0 08/18/19 17 7:09 AM SERVICE TECH/WELDER documented as of this encounter Care Teams Java Programmer Analyst Relationship Specialty Start Date End Date Esperanza Gatica MD PCP - General Family Practice 10/13/11 12/29/21 [place] [address] [place] [address] PCP - Assigned PCP 12/05/17 08/23/18 Alfreda Ray PA-C [address] [place] [address] 229052 PCP - General Family Medicine 12/30/21 [place] [address] [place] [place] [address] Assigned PCP 12/05/17 09/30/19 [place] [address] [place] [place] [address] Assigned PCP 10/01/19 03/02/20 [place] [address] [place] [address] Assigned PCP 03/03/20 05/25/20 [place] [address] [place] [address] Assigned PCP 05/26/20 09/28/20 [place] [address] [place] [address] Assigned PCP 09/29/20 07/31/22 Jesú[place] [address] [facility] [place] [address] Assigned Musculoskeletal Provider 10/20/20 04/17/22 Alfreda Ray PA-C [address] [place] [address] 652002 Referring Physician Family Medicine 12/31/21 Katrin Orellana PA-C [address] [place] [address] 436445 Physician Rubber Insulator Dermatology 12/31/21 Shanna Vang PA-C [address] [place] [address] Assigned Cancer Care Provider 01/10/22 Fransisco Eddy MD [address] [place] [address] 753015 Assigned Rheumatology Provider 05/09/22 [place] [address] [place] [address] Assigned Pain Medication Provider 06/29/22 09/04/22 [place] [address] [place] [address] Assigned PCP 08/15/22 08/28/22 Katrin Orellana PA-C [address] [place] [address] 98 [place], [place] 336175 Assigned Surgical Provider 08/15/22 02/10/24 Cristina Hsieh [facility] [address] [facility] L[place]BETH [place]DEZ [address] Pharmacist Pharmacist 09/07/22 Alfreda Ray PA-C [address] [place] [address] 278562 Assigned Pain Medication Provider 09/05/22 09/10/23 Alfreda Ray PA-C [address] [place] [address] Assigned PCP 08/29/22 Cristina Hsieh, [facility] [address] [address] Assigned MTM Pharmacist 09/26/22 Dakota Tatum MD [address] [place] [address]99 Cardiovascular Disease 03/25/23 Dakota Tatum MD [address] [place] [address] Assigned Heart and Vascular Provider 05/01/23 [place] [address] [address], [address] [address] Assigned Musculoskeletal Provider 04/12/24 documented as of this encounter
--- OUTSIDE RECORDS SUMMARY | 2024-06-23 00:25 | XMS_ITS | Encounter Summary ---
Author Organization [place] Address [address] [place] [address] Care Team Providers Care Water Taxi Operator Name Role Phone Esperanza Gatica MD Primary Care Provider + Esperanza Gatica MD Unavailable +[phone] Esperanza Gatica MD Unavailable +[phone] Esperanza Gatica MD Unavailable +[phone] Esperanza Gatica MD Unavailable +372 Esperanza Gatica MD Unavailable +[phone] Esperanza Gatica MD Unavailable +[phone] Jesús Orourke MD Unavailable Alfreda RayC Primary Care Provider + Alfreda Ray PA-C Unavailable + [phone] Katrin Orellana PA-C Unavailable +[phone] Shanna VangC Unavailable +[phone] Fransisco Eddy MD Unavailable +[phone] Esperanza Gatica MD Unavailable +[phone] Esperanza Gatica MD Unavailable +[phone] Katrin Orellana PA-C Unavailable Cristina Hsieh [facility] Unavailable +[phone] Cory Alfreda Liu PA-C Unavailable +[phone] Cory Alfreda Liu PA-C Unavailable +[phone] Cristina Hsieh [facility] Unavailable [phone] Dakota Tatum MD Unavailable [phone] Dakota Tatum MD Unavailable [phone] Srinivas Marie DO Unavailable Reason for Visit * Reason Onset Date Comments Refill Request 09/11/2015 Lisinopril-HCTZ Encounter Details Date Type Department Care Team (Late st Contact Info) Description 09/11/2015 MyC Refill [address], [address] [place] [address] [place] [address] [place] [address] Refill Request (Lisinopril-HCTZ) Social History [...] Sex Assigned at Female 08/17/2018 7:56 AM BRAKE RIDER Legal Sex Female 4:24 AM BRAKE RIDER Gender Identity Female 08/17/2018 7:56 AM BRAKE RIDER Sexual Orientation Straight 08/17/2018 7: 56 AM BRAKE RIDER documented as of this encounter Miscellaneous Notes * Telephone Encounter - Leigha Rinaldi RN - 09/11/2015 11:44 AM CDT Lisinopril-HCTZ Last Written Prescription Date: 08/13/2015 Last Fill Quantity: 90, # refills: 1 Last Office Visit with [facility], [facility] or [facility] prescribing provider: 08/13/2015 POTASSIUM Date Value Ref Range Status 08/13/2015 3.9 3.4 - 5.3 mmol/L Final CREATININE Date Value Ref Range Status 08/13/2015 0.87 0.52 - 1.04 mg/dL Final BP Readings from Last 3 Encounters: 08/13/15 136/66 04/08/15 112/60 12/06/14 126/64 Leigha Rinaldi RN * Telephone Encounter - Leigha Rinaldi RN - 09/11/2015 11:44 AM [facility] Original authorizing provider: MD Alexandria Brannon would like a refill of the following medications: lisinopril-hydrochlorothiazide (PRINZIDE,ZESTORETIC) 10-12.5 MG per tablet [Esperanza Gatica MD] Preferred pharmacy: [facility] - [address] Comment: documented in this encounter Plan of Treatment Upcoming Encounters Date Type Department Care Team (Late st Contact Info) Description 09/07/2024 10:00 AM CDT Office Visit [facility] [address] [phone] Fransisco Eddy MD [address] [place] [address] 873095 03/29/2025 3:40 PM CDT Office Visit [address] [phone] Alfreda Ray PA-C [address] [place] [address] [phone] documented as of this encounter Visit Diagnoses Diagnosis HTN (hypertension), benign Essential hypertension, benign documented in this encounter Additional Health Concerns Infection Onset Date Last Indicated Resolved Time Rule Out COVID-19 05/08/2021 05/08/2021 05/09/2021 9:08 PM BRAKE RIDER Assessment Noted Time PHQ-9 Depression Total Score: 0 08/14/19 16 8:10 AM BRAKE RIDER documented as of this encounter Care Teams Water Taxi Operator Relationship Specialty Start Date End Date Esperanza Gatica MD PCP - General Family Practice 10/13/11 12/29/21 [place] [address] [place] [address] PCP - Assigned PCP 12/05/17 08/23/18 Alfreda Ray PA-C [address] [place] [address] PCP - General Family Medicine 12/30/21 [place] [address] [place] [address] Assigned PCP 12/05/17 09/30/19 [place] [address] [place] [address] Assigned PCP 10/01/19 03/02/20 [place] [address] [place] [address] Assigned PCP 03/03/20 05/25/20 [place] [address] [place] [address] Assigned PCP 05/26/20 09/28/20 [place] [address] [address] [address] Assigned PCP 09/29/20 07/31/22 Jesú[place] [address] [place] [address] Assigned Musculoskeletal Provider 10/20/20 04/17/22 Alfreda Ray PA-C 4151 [place], [place] 098852 Referring Physician Family Medicine 12/31/21 Katrin Orellana PA-C [address] [place] [address] 98 [place], [place] 179265 Physician Aircraft Rigging And Controls Mechanic Dermatology 12/31/21 Shanna Vang PA-C [address] [place], [place] [id number] Assigned Cancer Care Provider 01/10/22 Fransisco Eddy MD [address] [place] [address] 118395 Assigned Rheumatology Provider 05/09/22 [place] [address] [address] [address] Assigned Pain Medication Provider 06/29/22 09/04/22 [place] [address] [place] [place] [address] Assigned PCP 08/15/22 08/28/22 Katrin Orellana PA-C [address] [facility] 98 [place] [address] Assigned Surgical Provider 08/15/22 02/10/24 Cristina Hsieh [facility] [address] [facility] LISBETH HERNANDEZ [address] Pharmacist Pharmacist 09/07/22 Alfreda Ray PA-C [address] [place] [address] 130352 Assigned Pain Medication Provider 09/05/22 09/10/23 Alfreda Ray PA-C [address] [place] [address] 194972 Assigned PCP 08/29/22 Cristina Hsieh [facility] [address] [address] Assigned MTM Pharmacist 09/26/22 Dakota Tatum MD [address] [place] [address] Cardiovascular Disease 03/25/23 Dakota Tatum MD 6 [place] [address] Assigned Heart and Vascular Provider 05/01/23 [place] [address] [place] [address] [facility] [address] [place] [address] Assigned Musculoskeletal Provider 04/12/24 documented as of this encounter
--- OUTSIDE RECORDS SUMMARY | 2024-06-23 00:25 | XMS_ITS | Encounter Summary ---
Author Organization [facility] Address [address] [place] [address] 22617 Care Team Providers Care Route Delivery Service Driver Name Role Phone Esperanza Gatica MD Primary Care Provider + Esperanza Gatica MD Unavailable +[phone] Esperanza Gatica MD Unavailable +[phone] Esperanza Gatica MD Unavailable +215 Esperanza Gatica MD Unavailable +[phone] Esperanza Gatica MD Unavailable +266 Esperanza Gatica MD Unavailable +[phone] Jesús Orourke MD Unavailable Alfreda RayC Primary Care Provider + Alfreda Ray PA-C Unavailable + [phone] Katrin Orellana PA-C Unavailable +[phone] Shanna VangC Unavailable +[phone] Fransisco Eddy MD Unavailable +[phone] Esperanza Gatica MD Unavailable +[phone] Esperanza Gatica MD Unavailable +[phone] Katrin Orellana PA-C Unavailable Cristina Hsieh [facility] Unavailable Cory Alfreda Liu PA-C Unavailable Ho Raymustapha Liu PA-C Unavailable [phone] Cristina Hsieh [facility] Unavailable Dakota Tatum MD Unavailable Dakota Tatum MD Unavailable Srinivas Marie DO Unavailable [phone] Reason for Visit * Reason Onset Date Comments Flu 08/19/2016 Flu like symptom s Encounter Details Date Type Department Care Team (Late st Contact Info) Description 08/19/2016 MyC Medical Advice [place] 126995 [facility], [facility] [address] [place] [address] [place] [address] [facility] [place] [address] Flu (Flu like symptoms) Social [...] Sex Assigned at Female 08/17/2018 7:56 AM ENVIRONMENTAL COMPLIANCE INSPECTOR Legal Sex Female 4:24 AM ENVIRONMENTAL COMPLIANCE INSPECTOR Gender Identity Female 08/17/2018 7:56 AM ENVIRONMENTAL COMPLIANCE INSPECTOR Sexual Orientation Straight 08/17/2018 7: 56 AM ENVIRONMENTAL COMPLIANCE INSPECTOR documented as of this encounter Plan of Treatment Upcoming Encounters Date Type Department Care Team (Late st Contact Info) Description 09/07/2024 10:00 AM CDT Office Visit [facility] [address] [place] [address] Fransisco Eddy MD [address] [place] [address] 03/29/2025 3:40 PM CDT Office Visit [facility] [address] [place] [address] [phone] Alfreda Ray PA-C [address] [place] [address] 11417 documented as of this encounter Visit Diagnoses Not on filedocumented in this encounter Additional Health Concerns Infection Onset Date Last Indicated Resolved Time Rule Out COVID-19 05/08/2021 05/08/2021 05/09/2021 9:08 PM ENVIRONMENTAL COMPLIANCE INSPECTOR Assessment Noted Time PHQ-9 Depression Total Score: 0 08/18/19 17 7:09 AM ENVIRONMENTAL COMPLIANCE INSPECTOR documented as of this encounter Care Teams Route Delivery Service Driver Relationship Specialty Start Date End Date Esperanza Gatica MD PCP - General Family Practice 10/13/11 12/29/21 [place] [address] [address] GARCIA [address] PCP - Assigned PCP 12/05/17 08/23/18 Alfreda Ray PA-C [address] [place] [address] 15794 PCP - General Family Medicine 12/30/21 [place] [address] [place] GARCIA 99364 Assigned PCP 12/05/17 09/30/19 [place] [address] [place] GARCIA 90944 Assigned PCP 10/01/19 03/02/20 [place] [address] [place] [address] Assigned PCP 03/03/20 05/25/20 [place] [address] [place] [address] Assigned PCP 05/26/20 09/28/20 [place] [address] [place] [address] Assigned PCP 09/29/20 07/31/22 Jesú[place] [address] [address] Assigned Musculoskeletal Provider 10/20/20 04/17/22 Alfreda Ray PA-C [address] [place] [address] [phone] Referring Physician Family Medicine 12/31/21 Katrin Orellana PA-C [address] [place] [address] 045555 Physician Dross Puller Dermatology 12/31/21 Shanna Vnag PA-C [address] [place] [address] 391614 Assigned Cancer Care Provider 01/10/22 Fransisco Eddy MD [address] [place] [address] 338055 Assigned Rheumatology Provider 05/09/22 [place] [address] [place] [address] Assigned Pain Medication Provider 06/29/22 09/04/22 [place] [address] [place] [address] Assigned PCP 08/15/22 08/28/22 Katrin Orellana PA-C [address] [place] [address] 175245 Assigned Surgical Provider 08/15/22 02/10/[address] [facility] [address] [place] [address] LISBETH HERNANDEZ [address] Pharmacist Pharmacist 09/07/22 Alfreda Ray PA-C [address] [place] [address] 334862 Assigned Pain Medication Provider 09/05/22 09/10/23 Alfreda Ray PA-C [address] [place] [address] 894382 Assigned PCP 08/29/[address] [facility] [address] [phone] Assigned MTM Pharmacist 09/26/22 Dakota Tatum MD 6 [place], [place] 756995 Cardiovascular Disease 03/25/23 Dakota Tatum MD 6 [place] [address] Assigned Heart and Vascular Provider 05/01/23 [place] [address] CE[address]AST[address]UM, [address] [address] Assigned Musculoskeletal Provider 04/12/24 documented as of this encounter
--- OUTSIDE RECORDS SUMMARY | 2024-06-23 00:25 | XMS_ITS | Encounter Summary ---
Author Organization [facility] Address [address] [place] [address] 89841 Care Team Providers Care Independent Living Instructor Name Role Phone Esperanza Gatica MD Primary Care Provider + Esperanza Gatica MD Unavailable +[phone] Esperanza Gatica MD Unavailable +[phone] Esperanza Gatica MD Unavailable +523 Esperanza Gatica MD Unavailable +709 Esperanza Gatica MD Unavailable +[phone] Esperanza Gatica MD Unavailable +[phone] Jesús Orourke MD Unavailable Alfreda RayC Primary Care Provider + Alfreda Ray PA-C Unavailable + [phone] Katrin Orellana PA-C Unavailable +[phone] Shanna VangC Unavailable +[phone] Fransisco Eddy MD Unavailable [phone] Esperanza Gatica MD Unavailable +[phone] Esperanza Gatica MD Unavailable +[phone] Katrin Orellana PA-C Unavailable Cristina Hsieh [facility] Unavailable Cory Alfreda Liu PA-C Unavailable +[phone] Alfreda Ray Alexa KING Unavailable +[phone] Cristina Hsieh [facility] Unavailable Dakota Tatum MD Unavailable Dakota Tatum MD Unavailable [phone] Srinivas Marie DO Unavailable [phone] Reason for Visit * Reason Onset Date Comments MyChart Communication 06/29/2017 Encounter Details Date Type Department Care Team (Late st Contact Info) Description 06/29/2017 MyC Medical Advice [address], [address] [place] [address] [place] [address] [place] [address] MyChart Communication Social History Tobacco [...] Sex Assigned at Female 08/17/2018 7:56 AM COLLEGE SPORTS ASSISTANT Legal Sex Female 4:24 AM COLLEGE SPORTS ASSISTANT Gender Identity Female 08/17/2018 7:56 AM COLLEGE SPORTS ASSISTANT Sexual Orientation Straight 08/17/2018 7: 56 AM COLLEGE SPORTS ASSISTANT documented as of this encounter Miscellaneous Notes * Telephone Encounter - Yuliet Barrera RN - 06/29/2017 10:28 AM CST Recommend appt for sinus inf Yuliet Barrera RN, BS Clinical Nurse Triage. EGE SPORTS ASSISTANT documented in this encounter Plan of Treatment Upcoming Encounters Date Type Department Care Team (Late st Contact Info) Description 09/07/2024 10:00 AM CDT Office Visit [facility] [address] [place] [phone] Fransisco Eddy MD [address] [place] [address] 03/29/2025 3:40 PM CDT Office Visit [address] [phone] Alfreda Ray PA-C [address] [place] [address] 821032 documented as of this encounter Visit Diagnoses Not on filedocumented in this encounter Additional Health Concerns Infection Onset Date Last Indicated Resolved Time Rule Out COVID-19 05/08/2021 05/08/2021 05/09/2021 9:08 PM COLLEGE SPORTS ASSISTANT Assessment Noted Time PHQ-9 Depression Total Score: 0 08/18/19 17 7:09 AM COLLEGE SPORTS ASSISTANT documented as of this encounter Care Teams Independent Living Instructor Relationship Specialty Start Date End Date Esperanza Gatica MD PCP - General Family Practice 10/13/11 12/29/21 [place] [address] [address] GARCIA [address] PCP - Assigned PCP 12/05/17 08/23/18 Alfreda Ray PA-C [address] [place] [address] 27990 PCP - General Family Medicine 12/30/21 [place] [address] LISB[place] GARCIA 78007 Assigned PCP 12/05/17 09/30/19 [place] [address] L[place]B[address] GARCIA 83341 Assigned PCP 10/01/19 03/02/20 [place] [address] L[place]B[address] GARCIA 56168 Assigned PCP 03/03/20 05/25/20 [place] [address] LISB[address] GARCIA 05229 Assigned PCP 05/26/20 09/28/20 [place] [address] LISB[address] GARCIA 47498 Assigned PCP 09/29/20 07/31/22 [place] [address] WOM[place] [address] [place] [address] 65[address] Assigned Musculoskeletal Provider 10/20/20 04/17/22 Alfreda Ray PA-C [address] [place] [address] 495462 Referring Physician Family Medicine 12/31/21 Katrin Orellana PA-C [address] [place] [address] 504015 Physician Admissions Dean Dermatology 12/31/21 Shanna Vang PA-C [address] [place] [address] 21035 Assigned Cancer Care Provider 01/10/22 Fransisco Eddy MD [address] [place] [address] 05675 Assigned Rheumatology Provider 05/09/22 [place] [address] [place] [address] Assigned Pain Medication Provider 06/29/22 09/04/22 [place] [address] [place] [address] Assigned PCP 08/15/22 08/28/22 Katrin Orellana PA-C [address] [place] [address] 67056 Assigned Surgical Provider 08/15/22 02/10/24 Cristina Hsieh [facility] [address] [place] [address] LISBETH HERNANDEZ [address] Pharmacist Pharmacist 09/07/22 Alfreda Ray PA-C [address] [place] [address] 91546 Assigned Pain Medication Provider 09/05/22 09/10/23 Alfreda Ray PA-C [address] [place] [address] 26079 Assigned PCP 08/29/22 Cristina Hsieh [facility] [address] [address] Assigned MTM Pharmacist 09/26/22 Dakota Tatum MD [address] [place] [address] 00619 Cardiovascular Disease 03/25/23 Dakota Tatum MD [address] [place] [address] 61116 Assigned Heart and Vascular Provider 05/01/23 [place] [address] CELE GASTELUM, [address] [address] Assigned Musculoskeletal Provider 04/12/24 documented as of this encounter
--- OUTSIDE RECORDS SUMMARY | 2024-06-23 00:26 | XMS_ITS | Encounter Summary ---
Author Organization [facility] Address [address] [place] [address]31 Care Team Providers Care Training Development Director Name Role Phone Esperanza Gatica MD Primary Care Provider + Esperanza Gatica MD Unavailable +[phone] Esperanza Gatica MD Unavailable +[phone] Esperanza Gatica MD Unavailable +[phone] Esperanza Gatica MD Unavailable +186 Esperanza Gatica MD Unavailable +[phone] Esperanza Gatica MD Unavailable +[phone] Jesús Orourke MD Unavailable Alfreda RayC Primary Care Provider + Alfreda Ray PA-C Unavailable + [phone] Katrin Orellana PA-C Unavailable +[phone] Shanna VangC Unavailable +[phone] Fransisco Eddy MD Unavailable [phone] Esperanza Gatica MD Unavailable +[phone] Esperanza Gatica MD Unavailable +[phone] Katrin Orellana PA-C Unavailable Cristina Hsieh [facility] Unavailable Cory Alfreda Liu PA-C Unavailable +[phone] Ho Raymustapha Liu PA-C Unavailable +[phone] Cristina Hsieh [facility] Unavailable +[phone] Dakota Tatum MD Unavailable [phone] Dakota Tatum MD Unavailable [phone] Srinivas Marie DO Unavailable [phone] Reason for Visit * Reason Onset Date Comments Refill Request 02/28/2015 Tramadol 50mg Encounter Details Date Type Department Care Team (Late st Contact Info) Description 02/28/2015 MyC Refill [address], [facility] [address] [place] [address] [place] [address] [place] [address] Refill Request (Tramadol 50mg) Social [...] Sex Assigned at Female 08/17/2018 7:56 AM HEAT TREATING OPERATOR Legal Sex Female 4:24 AM HEAT TREATING OPERATOR Gender Identity Female 08/17/2018 7:56 AM HEAT TREATING OPERATOR Sexual Orientation Straight 08/17/2018 7: 56 AM HEAT TREATING OPERATOR documented as of this encounter Miscellaneous Notes * Telephone Encounter - Leigha Rinaldi RN - 02/28/2015 10:08 AM CDT Tramadol 50mg Last Written Prescription Date: 12/06/2014 Last Fill Quantity: 90, # refills: 0 Last Office Visit with [facility] primary care provider: 12/06/2014 Future Office visit: Routing refill request to provider for review/approval because: Drug not on the [facility] refill protocol or controlled substance. Leigha Rinaldi RN * Telephone Encounter - Leigha Rinaldi RN - 02/28/2015 10:07 AM CDTMessage from [facility]: Original authorizing provider: Esperanza Gatica MD Alexandria Bradshaw would like a refill of the following medications: traMADol (ULTRAM) 50 MG tablet [Esperanza Gatica MD] Preferred pharmacy: [id number] Comment: documented in this encounter Plan of Treatment Upcoming Encounters Date Type Department Care Team (Late st Contact Info) Description 09/07/2024 10:00 AM CDT Office Visit [address] [phone] Fransisco Eddy MD [address] [place] [address] 03/29/2025 3:40 PM CDT Office Visit [address] [phone] Alfreda Ray PA-C [address] [place] [address] 075292 documented as of this encounter Visit Diagnoses Diagnosis HTN (hypertension), benign Essential hypertension, benign documented in this encounter Additional Health Concerns Infection Onset Date Last Indicated Resolved Time Rule Out COVID-19 05/08/2021 05/08/2021 05/09/2021 9:08 PM HEAT TREATING OPERATOR documented as of this encounter Care Teams Training Development Director Relationship Specialty Start Date End Date Esperanza Gatica MD PCP - General Family Practice 10/13/11 12/29/21 [place] [address] [place] [address] PCP - Assigned PCP 12/05/17 08/23/18 Alfreda Ray PA-C [address] [place] [address], [place] [address] PCP - General Family Medicine 12/30/21 [place] [address] [place] [address] Assigned PCP 12/05/17 09/30/19 [place] [address] [place] [address] Assigned PCP 10/01/19 03/02/20 [place] [address] [place] [address] Assigned PCP 03/03/20 05/25/20 [place] [address] [place] [address] Assigned PCP 05/26/20 09/28/20 [place] [address] [place] [address] Assigned PCP 09/29/20 07/31/22 Jesú[place] [address] [place] [address] Assigned Musculoskeletal Provider 10/20/20 04/17/22 Alfreda Ray PA-C [address] [place] [address] 9[address]47 Referring Physician Family Medicine 12/31/21 Katrin Orellana PA-C [address] [place] [address] 987655 Physician Pet Sitting Dermatology 12/31/21 Shanna Vang PA-C [address] 002804 Assigned Cancer Care Provider 01/10/22 Fransisco Eddy MD [address] [place] [address] 414335 Assigned Rheumatology Provider 05/09/22 [place] [address] [place] [address] Assigned Pain Medication Provider 06/29/22 09/04/22 [place] [address] [place] [address] Assigned PCP 08/15/22 08/28/22 Katrin Orellana PA-C [address] [place] [address] 701055 Assigned Surgical Provider 08/15/22 02/10/24 Cristina Hsieh, [facility] [address] [facility] [place] HERNANDEZ [address] Pharmacist Pharmacist 09/07/22 Alfreda Ray PA-C [address] [place] [address] 30994 Assigned Pain Medication Provider 09/05/22 09/10/23 Alfreda Ray PA-C [address] [place] [address] 46542 Assigned PCP 08/29/22 Cristina Hsieh, [facility] [address] [address] Assigned MTM Pharmacist 09/26/22 Dakota Tatum MD [address] [place] [address]81 Cardiovascular Disease 03/25/23 Dakota Tatum MD [address] [place] [address]37 Assigned Heart and Vascular Provider 05/01/23 [place] [address] [address] , [address] [address] Assigned Musculoskeletal Provider 04/12/24 documented as of this encounter
--- OUTSIDE RECORDS SUMMARY | 2024-06-23 00:26 | XMS_ITS | Encounter Summary ---
Author Organization [facility] Address [address] [place] [address] 0[address]32 Care Team Providers Care Candle Making Supervisor Name Role Phone Esperanza Gatica MD Primary Care Provider + Esperanza Gatica MD Unavailable +[phone] Esperanza Gatica MD Unavailable +[phone] Esperanza Gatica MD Unavailable +548 Esperanza Gatica MD Unavailable +422 Esperanza Gatica MD Unavailable +018 Esperanza Gatica MD Unavailable +[phone] Jesús Orourke MD Unavailable Alfreda RayC Primary Care Provider + Alfreda Ray PA-C Unavailable + [phone] Katrin Orellana PA-C Unavailable +[phone] Shanna VangC Unavailable +[phone] Fransisco Eddy MD Unavailable +[phone] Esperanza Gatica MD Unavailable +[phone] Esperanza Gatica MD Unavailable +[phone] Katrin Orellana PA-C Unavailable Cristina Hsieh [facility] Unavailable Cory Alfreda Liu PA-C Unavailable Ray, Alfreda Liu PA-C Unavailable +[phone] Cristina Hsieh [facility] Unavailable Dakota Tatum MD Unavailable Dakota Tatum MD Unavailable Srinivas Marie DO Unavailable [phone] Reason for Visit * Reason Onset Date Comments Refill Request 12/22/2014 Lisinopril-HCTZ 10-12.5mg Encounter Details Date Type Department Care Team (Late st Contact Info) Description 12/22/2014 MyC Medical Advice [address], [address] [place] [address] [place] [address] [place] [address] Refill Request (Lisinopril-HCTZ 10-12.5mg) Social History Tobacco [...] Assigned at Female 08/17/2018 7:56 AM CLINICAL PHLEBOTOMIST Legal Sex Female 4:24 AM CLINICAL PHLEBOTOMIST Gender Identity Female 08/17/2018 7:56 AM CLINICAL PHLEBOTOMIST Sexual Orientation Straight 08/17/2018 7: 56 AM CLINICAL PHLEBOTOMIST documented as of this encounter Miscellaneous Notes * Telephone Encounter - Leigha Rinaldi RN - 12/24/2014 8:16 AM CDT Lisinopril-HCTZ Last Written Prescription Date: 06/18/2014 Last Fill Quantity: 90 , # refills: 1 Last Office Visit with [facility] primary care provider: 5/18/ POTASSIUM Date Value [...] AM CDT Office Visit [facility] [address] [place] [phone] Fransisco Eddy MD [address] [place] [address] 003435 03/29/2025 3:40 PM CDT Office Visit [address] [phone] Alfreda Ray PA-C [address] [place] [address] [phone] documented as of this encounter Visit Diagnoses Diagnosis Insomnia, unspecified- Primary HTN (hypertension), benign Essential hypertension, benign documented in this encounter Additional Health Concerns Infection Onset Date Last Indicated Resolved Time Rule Out COVID-19 05/08/2021 05/08/2021 05/09/2021 9:08 PM CLINICAL PHLEBOTOMIST documented as of this encounter Care Teams Candle Making Supervisor Relationship Specialty Start Date End Date Esperanza Gatica MD PCP - General Family Practice 10/13/11 12/29/21 [place] [address] [place] [address] PCP - Assigned PCP 12/05/17 08/23/18 Alfreda Ray PA-C [address] [place] [address] PCP - General Family Medicine 12/30/21 [place] [address] [place] [address] Assigned PCP 12/05/17 09/30/19 [place] [address] [place] [address] Assigned PCP 10/01/19 03/02/20 [place] [address] [place] [address] Assigned PCP 03/03/20 05/25/20 [place] [address] [place] [address] Assigned PCP 05/26/20 09/28/20 [place] [address] [place] [address] Assigned PCP 09/29/20 07/31/22 [place] [address] [place], [place] [address] Assigned Musculoskeletal Provider 10/20/20 04/17/22 Alfreda Ray PA-C [address] [place] [address] Referring Physician Family Medicine 12/31/21 Katrin Orellana PA-C [address] 672305 Physician Network Firewall Engineer Dermatology 12/31/21 Shanna Vang PA-C [address] [place] [address] [phone] Assigned Cancer Care Provider 01/10/22 Fransisco Eddy MD [address] [place] [address] [phone] Assigned Rheumatology Provider 05/09/22 [place] [address] [place] [address] Assigned Pain Medication Provider 06/29/22 09/04/22 [place] [address] [address] [facility] [address] Assigned PCP 08/15/22 08/28/22 Katrin Orellana PA-C [address] [place] [address] 627615 Assigned Surgical Provider 08/15/22 02/10/24 Cristina Hsieh [facility] [address] [facility] [place] HERNANDEZ [address] Pharmacist Pharmacist 09/07/22 Alfreda Ray PA-C [address] [place] [address] 9[address]11 Assigned Pain Medication Provider 09/05/22 09/10/23 Alfreda Ray PA-C [address] [place] [address] 15390 Assigned PCP 08/29/22 Cristina Hsieh, [facility] [address] [address] Assigned MTM Pharmacist 09/26/22 Dakota Tatum MD [address] [place] [address] 965325 Cardiovascular Disease 03/25/23 Dakota Tatum MD [address] [place] [address] 739695 Assigned Heart and Vascular Provider 05/01/23 [place] [address] CELE GASTELUM, [address] [address] Assigned Musculoskeletal Provider 04/12/24 documented as of this encounter
--- OUTSIDE RECORDS SUMMARY | 2024-06-23 00:26 | XMS_ITS | Encounter Summary ---
Author Organization [facility] Address [address] [place] [address] Care Team Providers Care Sharepoint Designer Developer Name Role Phone Esperanza Gatica MD Primary Care Provider + Esperanza Gatica MD Unavailable +[phone] Esperanza Gatica MD Unavailable +[phone] Esperanza Gatica MD Unavailable +[phone] Esperanza Gatica MD Unavailable +990 Esperanza Gatica MD Unavailable +[phone] Esperanza Gatica MD Unavailable +[phone] Jesús Orourke MD Unavailable Alfreda RayC Primary Care Provider + Alfreda Ray PA-C Unavailable + [phone] Katrin Orellana PA-C Unavailable +[phone] Shanna VangC Unavailable +[phone] Fransisco Eddy MD Unavailable +[phone] Esperanza Gatica MD Unavailable +[phone] Esperanza Gatica MD Unavailable +[phone] Katrin Orellana PA-C Unavailable +[phone] Cristina Hsieh [facility] Unavailable Alfreda Ray PA-C Unavailable +[phone] Alfreda Ray PA-C Unavailable +[phone] Cristina Hsieh [facility] Unavailable Dakota Tatum MD Unavailable Dakota Tatum MD Unavailable Srinivas Marie DO Unavailable +[phone] Encounter Details Date Type Department Care Team (Late st Contact Info) Description 02/27/2015 MyC Medical Advice [address], [address] [place] [address] Fartun Silveira Social History Tobacco Use Types Packs/Day Years Used Date Smoking Tobacco: Former Cigarettes 1 5 0 06/21/1968 - 06/21/1973 Smokeless Tobacco: Former Alcohol Use Standard Drinks/Week Comments Yes 0 (1 standard drink = 0.6 oz pure alcohol) Very occasionally - 2 per month Comments No Sex and Gender Information Value Date Recorded Sex Assigned at Female 08/17/2018 7:56 AM HEAD PAPER TESTER Legal Sex Female 4:24 AM HEAD PAPER TESTER Gender Identity Female 08/17/2018 7:56 AM HEAD PAPER TESTER Sexual Orientation Straight 08/17/2018 7: 56 AM HEAD PAPER TESTER documented as of this encounter Plan of Treatment Upcoming Encounters Date Type Department Care Team (Late st Contact Info) Description 09/07/2024 10:00 AM CDT Office Visit [facility] [address] [phone] Fransisco Eddy MD [address] [place] [address] 03/29/2025 3:40 PM CDT Office Visit [address] [phone] Alfreda Ray PA-C [address] [place] [address] documented as of this encounter Visit Diagnoses Not on filedocumented in this encounter Additional Health Concerns Infection Onset Date Last Indicated Resolved Time Rule Out COVID-19 05/08/2021 05/08/2021 05/09/2021 9:08 PM HEAD PAPER TESTER documented as of this encounter Care Teams Sharepoint Designer Developer Relationship Specialty Start Date End Date Esperanza Gatica MD PCP - General Family Practice 10/13/11 12/29/21 [place] [address] [place] GARCIA [address] PCP - Assigned PCP 12/05/17 08/23/18 Alfreda Ray PA-C [address] [place] [address]609 PCP - General Family Medicine 12/30/21 [place] [address] [place] GARCIA [address] Assigned PCP 12/05/17 09/30/19 [place] [address] [place] GARCIA [address]8767 Assigned PCP 10/01/19 03/02/20 [place] [address] [place] [address] Assigned PCP 03/03/20 05/25/20 [place] [address] [place] [address] Assigned PCP 05/26/20 09/28/20 [place] [address] [place] [address] Assigned PCP 09/29/20 07/31/22 [place] [address] [address] Assigned Musculoskeletal Provider 10/20/20 04/17/22 Alfreda Ray PA-C [address] [place] [address] 372242 Referring Physician Family Medicine 12/31/21 Katrin Orellana PA-C [address] [place] [address] [address] [place], [place] [phone] Physician Assistant Women'S Basketball Coach Dermatology 12/31/21 Shanna Vang PA-C [address] [place], [place] [phone] Assigned Cancer Care Provider 01/10/22 Fransisco Eddy MD [address] [place] [address] Assigned Rheumatology Provider 05/09/22 [place] [address] [place] [address] Assigned Pain Medication Provider 06/29/22 09/04/22 [place] [address] [place] [address] Assigned PCP 08/15/22 08/28/22 Katrin Orellana PA-C [address] [place] [address] [address] [place] [address] Assigned Surgical Provider 08/15/22 02/10/24 Cristina Hsieh [facility] [address] [facility] [place] [address] Pharmacist Pharmacist 09/07/22 Alfreda Ray PA-C [address] [place] [address] [phone] Assigned Pain Medication Provider 09/05/22 09/10/23 Alfreda Ray PA-C [address] [place] [address] 588612 Assigned PCP 08/29/22 Cristina Hsieh, [facility] [address] [address] Assigned MTM Pharmacist 09/26/22 Dakota Tatum MD [address] [place] [address] 056785 Cardiovascular Disease 03/25/23 Dakota Tatum MD [address] [place] [address]99 Assigned Heart and Vascular Provider 05/01/23 [place] [address] [address], [facility] [address] [place] [address] Assigned Musculoskeletal Provider 04/12/24 documented as of this encounter
--- OUTSIDE RECORDS SUMMARY | 2024-06-23 00:26 | XMS_ITS | Encounter Summary ---
Author Organization [facility] Address [address] [place] [address] Care Team Providers Care Riveting Machine Operator Name Role Phone Esperanza Gatica MD Primary Care Provider + Esperanza Gatica MD Unavailable +[phone] Esperanza Gatica MD Unavailable +[phone] Esperanza Gatica MD Unavailable +[phone] Esperanza Gatica MD Unavailable +[phone] Esperanza Gatica MD Unavailable +[phone] Esperanza Gatica MD Unavailable +[phone] Jesús Orourke MD Unavailable Alfreda RyaC Primary Care Provider + Alfreda Ray PA-C Unavailable + [phone] Katrin Orellana PA-C Unavailable +[phone] Shanna VangC Unavailable +[phone] Fransisco Eddy MD Unavailable +[phone] Esperanza Gatica MD Unavailable +[phone] Esperanza Gatica MD Unavailable +[phone] Katrin Orellana PA-C Unavailable Cristina Hsieh [facility] Unavailable +[phone] RayAlfreda PA-C Unavailable +[phone] Cory Alfreda Liu PA-C Unavailable +[phone] Cristina Hsieh [facility] Unavailable +[phone] Dakota Tatum MD Unavailable +[phone] Dakota Tatum MD Unavailable [phone] Srinivas Marie DO Unavailable [phone] Reason for Visit * Reason Onset Date Comments Refill Request 02/07/2015 Zolpidem 5mg Encounter Details Date Type Department Care Team (Late st Contact Info) Description 02/07/2015 MyC Refill [address], [facility] [address] [place] [address] [place] [address] [place] [address] Refill Request (Zolpidem 5mg) Social [...] Sex Assigned at Female 08/17/2018 7:56 AM RECORDIST Legal Sex Female 4:24 AM RECORDIST Gender Identity Female 08/17/2018 7:56 AM RECORDIST Sexual Orientation Straight 08/17/2018 7: 56 AM RECORDIST documented as of this encounter Miscellaneous Notes * Telephone Encounter - Leigha Rinaldi RN - 02/07/2015 1:27 PM CDT Zolpidem 5mg Last Written Prescription Date: 12/06/2014 Last Fill Quantity: 90, # refills: 2 Last Office Visit with [facility] primary care provider: 12/06/2014 [...] MG tablet [Esperanza Gatica MD] Preferred pharmacy: [id number] Comment: documented in this encounter Plan of Treatment Upcoming Encounters Date Type Department Care Team (Late st Contact Info) Description 09/07/2024 10:00 AM CDT Office Visit [address] [phone] Fransisco Eddy MD [address] [place] [address] 392865 03/29/2025 3:40 PM CDT Office Visit [address] [phone] Alfreda Ray PA-C [address] [place] [address] [phone] documented as of this encounter Visit Diagnoses Diagnosis Insomnia, unspecified documented in this encounter Additional Health Concerns Infection Onset Date Last Indicated Resolved Time Rule Out COVID-19 05/08/2021 05/08/2021 05/09/2021 9:08 PM RECORDIST documented as of this encounter Care Teams Riveting Machine Operator Relationship Specialty Start Date End Date Esperanza Gatica MD PCP - General Family Practice 10/13/11 12/29/21 [place] [address] [place] [address] PCP - Assigned PCP 12/05/17 08/23/18 Alfreda Ray PA-C [address] [place] [address] PCP - General Family Medicine 12/30/21 [place] [address] [place] [address] Assigned PCP 12/05/17 09/30/19 [place] [address] [place] [address] Assigned PCP 10/01/19 03/02/20 [place] [address] [place] [address] Assigned PCP 03/03/20 05/25/20 [place] [address] [place] [address] Assigned PCP 05/26/20 09/28/20 [place] [address] [place] [address] Assigned PCP 09/29/20 07/31/22 [place] [address] [place] [address] Assigned Musculoskeletal Provider 10/20/20 04/17/22 Alfreda Ray PA-C [address] [place] [address] 809322 Referring Physician Family Medicine 12/31/21 Katrin Orellana PA-C [address] [place] [address] 125325 Physician Trauma Doctor Dermatology 12/31/21 Shanna Vang PA-C [address] [place] [address] 249774 Assigned Cancer Care Provider 01/10/22 Fransisco Eddy MD [address] [place] [address] 544325 Assigned Rheumatology Provider 05/09/22 [place] [address] [place] [address] Assigned Pain Medication Provider 06/29/22 09/04/22 [place] [address] [place] [address] Assigned PCP 08/15/22 08/28/22 Katrin Orellana PA-C [address] [place] [address] 578915 Assigned Surgical Provider 08/15/22 02/10/24 Cristina Hsieh [facility] [address] [place] [address] Pharmacist Pharmacist 09/07/22 Alfreda Ray PA-C [address] [place] [address] Assigned Pain Medication Provider 09/05/22 09/10/23 Alfreda Ray PA-C [address] [place] [address] 31267 Assigned PCP 08/29/22 Cristina Hsieh, [facility] [address] [place] [address] Assigned MTM Pharmacist 09/26/22 Dakota Tatum MD [address] [place] [address]194 Cardiovascular Disease 03/25/23 Dakota Tatum MD [address] [place] [address]92 Assigned Heart and Vascular Provider 05/01/23 [place] [address] [place] , [address] [address] Assigned Musculoskeletal Provider 04/12/24 documented as of this encounter
--- OUTSIDE RECORDS SUMMARY | 2024-06-23 00:26 | XMS_ITS | Encounter Summary ---
Author Organization [facility] Address [address] [place] [address] Care Team Providers Care Marketing Operations Analyst Name Role Phone Esperanza Gatica MD Primary Care Provider + Esperanza Gatica MD Unavailable +[phone] Esperanza Gatica MD Unavailable +[phone] Esperanza Gatica MD Unavailable +[phone] Esperanza Gatica MD Unavailable +[phone] Esperanza Gatica MD Unavailable +310 Esperanza Gatica MD Unavailable +[phone] Jesús Orourke MD Unavailable Alfreda RayC Primary Care Provider + Alfreda Ray PA-C Unavailable + [phone] Katrin Orellana PA-C Unavailable +[phone] Shanna VangC Unavailable +[phone] Fransisco Eddy MD Unavailable +[phone] Esperanza Gatica MD Unavailable +[phone] Esperanza Gatica MD Unavailable +[phone] Katrin Orellana PA-C Unavailable [phone] Cristina Hsieh [facility] Unavailable Alfreda Ray PA-C Unavailable +[phone] Alfreda Ray PA-C Unavailable +[phone] Cristina Hsieh [facility] Unavailable Dakota Tatum MD Unavailable Dakota Tatum MD Unavailable Srinivas Marie DO Unavailable [phone] Encounter Details Date Type Department Care Team (Late st Contact Info) Description 06/29/2014 MyC Medical Advice [address], [facility] [address] [place] [address] Fartun Silveira Social History Tobacco Use Types Packs/Day Years Used Date Smoking Tobacco: Former Cigarettes Q uit: 06/21/1973 Smokeless Tobacco: Former Alcohol Use Standard Drinks/Week Comments Yes 0 (1 standard drink = 0.6 oz pur e alcohol) rarely Comments No Sex and Gender Information Value Date Recorded Sex Assigned at Female 08/17/2018 7:56 AM CENTER ADMINISTRATOR Legal Sex Female 4:24 AM CENTER ADMINISTRATOR Gender Identity Female 08/17/2018 7:56 AM CENTER ADMINISTRATOR Sexual Orientation Straight 08/17/2018 7: 56 AM CENTER ADMINISTRATOR documented as of this encounter Plan of Treatment Upcoming Encounters Date Type Department Care Team (Late st Contact Info) Description 09/07/2024 10:00 AM CDT Office Visit [facility] [address] [phone] Fransisco Eddy MD [address] [place] [address] 03/29/2025 3:40 PM CDT Office Visit [address] [phone] Alfreda Ray PA-C [address] [place] [address] documented as of this encounter Visit Diagnoses Not on filedocumented in this encounter Additional Health Concerns Infection Onset Date Last Indicated Resolved Time Rule Out COVID-19 05/08/2021 05/08/2021 05/09/2021 9:08 PM CENTER ADMINISTRATOR documented as of this encounter Care Teams Marketing Operations Analyst Relationship Specialty Start Date End Date Esperanza Gatica MD PCP - General Family Practice 10/13/11 12/29/21 [place] [address] [place]ARCIA [address] PCP - Assigned PCP 12/05/17 08/23/18 Alfreda Ray PA-C [address] [place] [address]303 PCP - General Family Medicine 12/30/21 [place] [address] [place]ARC[place] [address] Assigned PCP 12/05/17 09/30/19 [place] [address] [place] GARCIA [address] Assigned PCP 10/01/19 03/02/20 [place] [address] [place]ARC[place] [address] Assigned PCP 03/03/20 05/25/20 [place] [address] [place]ARCIA [address] Assigned PCP 05/26/20 09/28/20 [place] [address] [place] [address] Assigned PCP 09/29/20 07/31/22 [place] [address] [place] [address] [address] Assigned Musculoskeletal Provider 10/20/20 04/17/22 Alfreda Ray PA-C [address] [place] [address] Referring Physician Family Medicine 12/31/21 Katrin Orellana PA-C [address] [place] [address] Physician Net Developer Architect Dermatology 12/31/21 Shanna Vang PA-C [address] [address] Assigned Cancer Care Provider 01/10/22 Fransisco Eddy MD [address] [place] [address] Assigned Rheumatology Provider 05/09/22 [place] [address] [place] [address] Assigned Pain Medication Provider 06/29/22 09/04/22 [place] [address] [place] [address] Assigned PCP 08/15/22 08/28/22 Katrin Orellana PA-C [address] [place] [address] Assigned Surgical Provider 08/15/22 02/10/24 Cristina Hsieh [facility] [address] [facility] [place] [address] Pharmacist Pharmacist 09/07/22 Alfreda Ray PA-C [address] [place] [address] 155852 Assigned Pain Medication Provider 09/05/22 09/10/23 Alfreda Ray PA-C [address] [place] [address] 149162 Assigned PCP 08/29/22 Cristina Hsieh [facility] [address] [place] [address] Assigned MTM Pharmacist 09/26/22 Dakota Tatum MD [address] [place] [address] Cardiovascular Disease 03/25/23 Dakota Tatum MD [address] [place] [address]74 Assigned Heart and Vascular Provider 05/01/23 [place] [address] [place] [address] [address] Assigned Musculoskeletal Provider 04/12/24 documented as of this encounter
--- OUTSIDE RECORDS SUMMARY | 2024-06-23 00:26 | XMS_ITS | Encounter Summary ---
Author Organization [facility] Address [address] [place] [address]74 Care Team Providers Care Associate Director Of Biostatistics Name Role Phone Esperanza Gatica MD Primary Care Provider + Esperanza Gatica MD Unavailable +[phone] Esperanza Gatica MD Unavailable +[phone] Esperanza Gatica MD Unavailable +[phone] Esperanza Gatica MD Unavailable +[phone] Esperanza Gatica MD Unavailable +[phone] Esperanza Gatica MD Unavailable +[phone] Jesús Orourke MD Unavailable Alfreda RayC Primary Care Provider + Alfreda Ray PA-C Unavailable + [phone] Katrin Orellana PA-C Unavailable +[phone] Shanna VangC Unavailable +[phone] Fransisco Eddy MD Unavailable +[phone] Esperanza Gatica MD Unavailable +[phone] Esperanza Gatica MD Unavailable +[phone] Katrin Orellana PA-C Unavailable Cristina Hsieh [facility] Unavailable RayAlfreda PA-C Unavailable +[phone] Cory Alfreda Liu PA-C Unavailable +[phone] Cristina Hsieh [facility] Unavailable +[phone] Dakota Tatum MD Unavailable +[phone] Dakota Tatum MD Unavailable [phone] Srinivas Marie DO Unavailable Reason for Visit * Reason Onset Date Comments Refill Request 06/17/2014 Celebrex, Lisino pril/HCTZ Encounter Details Date Type Department Care Team (Late st Contact Info) Description 06/17/2014 MyC Medical Advice [address], [address] [place] [address] [place] [address] [place] [address] Refill Request (Celebrex, Lisinopril/HCTZ) Social History Tobacco Use Types Packs/Day Years Used Date Smoking Tobacco: Former Cigarettes Q uit: 06/21/1973 Smokeless Tobacco: Former Alcohol Use Standard Drinks/Week Comments Yes 0 (1 standard drink = 0.6 oz pur e alcohol) rarely Comments No Sex and Gender Information Value Date Recorded Sex Assigned at Female 08/17/2018 7:56 AM MACHINE COREMAKER Legal Sex Female 4:24 AM MACHINE COREMAKER Gender Identity Female 08/17/2018 7:56 AM MACHINE COREMAKER Sexual Orientation Straight 08/17/2018 7: 56 AM MACHINE COREMAKER documented as of this encounter Miscellaneous Notes [...] Will route to provider. Leigha Rinaldi RN INE COREMAKER documented in this encounter Plan of Treatment Upcoming Encounters Date Type Department Care Team (Late st Contact Info) Description 09/07/2024 10:00 AM CDT Office Visit [facility] [address] [phone] Fransisco Eddy MD [address] [place] [address] 362915 03/29/2025 3:40 PM CDT Office Visit [address] [phone] Alfreda Ray PA-C [address] [place] [address] [phone] documented as of this encounter Visit Diagnoses Diagnosis HTN (hypertension), benign- Primary Essential hypertension, benign Osteoarthritis Osteoarthrosis, unspecified whether generalized or localized, unspecified site documented in this encounter Additional Health Concerns Infection Onset Date Last Indicated Resolved Time Rule Out COVID-19 05/08/2021 05/08/2021 05/09/2021 9:08 PM MACHINE COREMAKER documented as of this encounter Care Teams Associate Director Of Biostatistics Relationship Specialty Start Date End Date Esperanza Gatica MD PCP - General Family Practice 10/13/11 12/29/21 [place] [address] [place] [address] PCP - Assigned PCP 12/05/17 08/23/18 Alfreda Ray PA-C [address] [place] [address]267 PCP - General Family Medicine 12/30/21 [place] [address] [place] [address] Assigned PCP 12/05/17 09/30/19 [place] [address] [place] [address] Assigned PCP 10/01/19 03/02/20 [place] [address] [place] [address] Assigned PCP 03/03/20 05/25/20 [place] [address] [place] [address] Assigned PCP 05/26/20 09/28/20 [place] [address] [place] [address] Assigned PCP 09/29/20 07/31/22 Jesú[place] [address] [place], [place] [address] Assigned Musculoskeletal Provider 10/20/20 04/17/22 Alfreda Ray PA-C [address] [place] [address] Referring Physician Family Medicine 12/31/21 Katrin Orellana PA-C [address] [address] Physician Food Service Sales Representatives Dermatology 12/31/21 Shanna Vang PA-C [address] [place] [address] [phone] Assigned Cancer Care Provider 01/10/22 Fransisco Eddy MD [address] [place] [address] 471305 Assigned Rheumatology Provider 05/09/22 [place] [address] [place] [address] Assigned Pain Medication Provider 06/29/22 09/04/22 [place] [address] [place] [place] [address] Assigned PCP 08/15/22 08/28/22 Katrin Orellana PA-C [address] [place] [address] 355255 Assigned Surgical Provider 08/15/22 02/10/24 Cristina Hsieh [facility] [address] [facility] [place] [address] Pharmacist Pharmacist 09/07/22 Alfreda Ray PA-C [address] [place] [address] Assigned Pain Medication Provider 09/05/22 09/10/23 Alfreda Ray PA-C [address] [place] [address]10 Assigned PCP 08/29/22 Cristina Hsieh, [facility] [address] [address] Assigned MTM Pharmacist 09/26/22 Dakota Tatum MD [address] [place] [address] 145645 Cardiovascular Disease 03/25/23 Dakota Tatum MD [address] [place] [address] 857345 Assigned Heart and Vascular Provider 05/01/23 [place] [address] [place] [place], [address] [address] Assigned Musculoskeletal Provider 04/12/24 documented as of this encounter
--- OUTSIDE RECORDS SUMMARY | 2024-06-23 00:26 | XMS_ITS | Encounter Summary ---
Author Organization [place] Address [address] [place] [address] 37768 Care Team Providers Care Executive Assistant To President Name Role Phone Esperanza Gatica MD Primary Care Provider + Esperanza Gatica MD Unavailable +[phone] Esperanza Gatica MD Unavailable +[phone] Esperanza Gatica MD Unavailable +[phone] Esperanza Gatica MD Unavailable +[phone] Esperanza Gatica MD Unavailable +388 Esperanza Gatica MD Unavailable +[phone] Jesús Orourke MD Unavailable Alfreda RayC Primary Care Provider + Alfreda Ray PA-C Unavailable + [phone] Katrin Orellana PA-C Unavailable +[phone] Shanna VangC Unavailable +[phone] Fransisco Eddy MD Unavailable +[phone] Esperanza Gatica MD Unavailable +[phone] Esperanza Gatica MD Unavailable +[phone] Katrin Orellana PA-C Unavailable +[phone] Cristina Hsieh [facility] Unavailable Cory Alfreda Liu PA-C Unavailable +[phone] Ho Raymustapha Liu PA-C Unavailable +[phone] Cristina Hsieh [facility] Unavailable Dakota Tatum MD Unavailable Dakota Tatum MD Unavailable [phone] Srinivas Marie DO Unavailable +[phone] Reason for Visit * Reason Onset Date Comments Refill Request 01/20/2015 Simvastatin 20mg Encounter Details Date Type Department Care Team (Late st Contact Info) Description 01/20/2015 MyC Refill [address], [facility] [address] [place] [address] [place] [address] [facility] [place] [address] Refill Request (Simvastatin 20mg) Social [...] Sex Assigned at Female 08/17/2018 7:56 AM INDUSTRIAL ORGANIZATION MANAGER Legal Sex Female 4:24 AM INDUSTRIAL ORGANIZATION MANAGER Gender Identity Female 08/17/2018 7:56 AM INDUSTRIAL ORGANIZATION MANAGER Sexual Orientation Straight 08/17/2018 7: 56 AM INDUSTRIAL ORGANIZATION MANAGER documented as of this encounter Miscellaneous Notes * Telephone Encounter - Leigha Rinaldi RN - 01/21/2015 8:04 AM CDT Simvastatin Last Written Prescription Date: 07/10/2014 Last Fill Quantity: 90, # refills: 1 [address] Visit with [facility] primary care provider: 12/06/2014 CHOL 137 07/10/2014 HDL 54 07/10/2014 LDL 62 07/10/2014 TRIG 105 07/10/2014 CHOLHDLRATIO 2.5 07/10/[address] [facility] Refill Protocol. Leigha Rinaldi RN * Telephone Encounter - Leigha Rinaldi RN - 01/21/2015 8:03 AM [facility] Original authorizing provider: MD Alexandria Brannon would like a refill of the following medications: simvastatin (ZOCOR) 20 MG tablet [Esperanza Gatica MD] Preferred pharmacy: [facility] #[id number] - [address] Comment: documented in this encounter Plan of Treatment Upcoming Encounters Date Type Department Care Team (Late st Contact Info) Description 09/07/2024 10:00 AM CDT Office Visit [address] 200 [place] [phone] Fransisco Eddy MD [address] [place] [address] 03/29/2025 3:40 PM CDT Office Visit [address] [phone] Alfreda Ray PA-C [address] [place] [address] [phone] documented as of this encounter Visit Diagnoses Diagnosis Hyperlipidemia LDL goal <160 Other and unspecified hyperlipidemia documented in this encounter Additional Health Concerns Infection Onset Date Last Indicated Resolved Time Rule Out COVID-19 05/08/2021 05/08/2021 05/09/2021 9:08 PM INDUSTRIAL ORGANIZATION MANAGER documented as of this encounter Care Teams Executive Assistant To President Relationship Specialty Start Date End Date Esperanza Gatica MD PCP - General Family Practice 10/13/11 12/29/21 [place] [address] [place] [address] PCP - Assigned PCP 12/05/17 08/23/18 Alfreda Ray PA-C [address] [place] [address] PCP - General Family Medicine 12/30/21 [place] [address] [place] [address] Assigned PCP 12/05/17 09/30/19 [place] [address] [place] [address] Assigned PCP 10/01/19 03/02/20 [place] [address] [place] [address] Assigned PCP 03/03/20 05/25/20 [place] [address] [place] [address] Assigned PCP 05/26/20 09/28/20 [place] [address] [place] [address] Assigned PCP 09/29/20 07/31/22 Jesú[place] [address] [place] [address] Assigned Musculoskeletal Provider 10/20/20 04/17/22 Alfreda Ray PA-C [address] [place] [address] 167592 Referring Physician Family Medicine 12/31/21 Katrin Orellana PA-C [address] [place] [address] [phone] Physician Pot Tender Dermatology 12/31/21 Shanna Vang PA-C [address] [place] [address]7477 Assigned Cancer Care Provider 01/10/22 Fransisco Eddy MD [address] [place] [address] 934845 Assigned Rheumatology Provider 05/09/22 [place] [address] [place]ARCIA [address] Assigned Pain Medication Provider 06/29/22 09/04/22 [place] [address] [place] [address] Assigned PCP 08/15/22 08/28/22 Katrin Orellana PA-C [address] [place] [address] 52050 Assigned Surgical Provider 08/15/22 02/10/24 Cristina Hsieh [facility] [address] [facility] L[place]ETH HERNANDEZ [address] Pharmacist Pharmacist 09/07/22 Alfreda Ray PA-C [address] [place] [address] 30176 Assigned Pain Medication Provider 09/05/22 09/10/23 Alfreda Ray PA-C [address] [place] [address] 16248 Assigned PCP 08/29/22 Cristina Hsieh, [facility] [address] [place] [address] 36408 Assigned MTM Pharmacist 09/26/22 Dakota Tatum MD [address] [place] [address] 72039 Cardiovascular Disease 03/25/23 Dakota Tatum MD [address] [place] [address] 69531 Assigned Heart and Vascular Provider 05/01/23 [place] [address] [address], [address] [address] Assigned Musculoskeletal Provider 04/12/24 documented as of this encounter
--- OUTSIDE RECORDS SUMMARY | 2024-06-23 00:26 | XMS_ITS | Encounter Summary ---
Author Organization [facility] Address [address] [place] [address] 12481 Care Team Providers Care Dedicated Truck Driver Name Role Phone Esperanza Gatica MD Primary Care Provider + Esperanza Gatica MD Unavailable +[phone] Esperanza Gatica MD Unavailable +[phone] Esperanza Gatica MD Unavailable +[phone] Esperanza Gatica MD Unavailable +386 Esperanza Gatica MD Unavailable +[phone] Esperanza Gatica MD Unavailable +[phone] Jesús Orourke MD Unavailable Alfreda RayC Primary Care Provider + Alfreda Ray PA-C Unavailable + [phone] Katrin Orellana PA-C Unavailable +[phone] Shanna VangC Unavailable +[phone] Fransisco Eddy MD Unavailable +[phone] Esperanza Gatica MD Unavailable +[phone] Esperanza Gatica MD Unavailable +[phone] Katrin Orellana PA-C Unavailable Cristina Hsieh [facility] Unavailable Cory Alfreda Liu PA-C Unavailable +[phone] Ho Raymustapha Liu PA-C Unavailable [phone] Cristina Hsieh [facility] Unavailable Dakota Tatum MD Unavailable Dakota Tatum MD Unavailable Srinivas Marie DO Unavailable [phone] Reason for Visit * Reason Onset Date Comments Formulary Issue 11/13/2014 Zolpidem 5mg Encounter Details Date Type Department Care Team (Late st Contact Info) Description 11/13/2014 MyC Medical Advice [place] [id number] [facility] [address] [place] [address] [place] [address] [place] [address] Formulary Issue (Zolpidem 5mg) Social [...] Sex Assigned at Female 08/17/2018 7:56 AM OPHTHALMOLOGIST Legal Sex Female 4:24 AM OPHTHALMOLOGIST Gender Identity Female 08/17/2018 7:56 AM OPHTHALMOLOGIST Sexual Orientation Straight 08/17/2018 7: 56 AM OPHTHALMOLOGIST documented as of this encounter Plan of Treatment Upcoming Encounters Date Type Department Care Team (Late st Contact Info) Description 09/07/2024 10:00 AM CDT Office Visit [facility] [address] [place] [address] Fransisco Eddy MD [address] [place] [address] 03/29/2025 3:40 PM CDT Office Visit [address] [phone] Alfreda Ray PA-C [address] [place] [address] documented as of this encounter Visit Diagnoses Not on filedocumented in this encounter Additional Health Concerns Infection Onset Date Last Indicated Resolved Time Rule Out COVID-19 05/08/2021 05/08/2021 05/09/2021 9:08 PM OPHTHALMOLOGIST documented as of this encounter Care Teams Dedicated Truck Driver Relationship Specialty Start Date End Date Esperanza Gatica MD PCP - General Family Practice 10/13/11 12/29/21 [place] [address] [place]ARCIA [address] PCP - Assigned PCP 12/05/17 08/23/18 Alfreda Ray PA-C [address] [place] [address]73 PCP - General Family Medicine 12/30/21 [place] [address] [place]ARCIA [address]692 Assigned PCP 12/05/17 09/30/19 [place] [address] [place] [address] Assigned PCP 10/01/19 03/02/20 [place] [address] [place] [address] Assigned PCP 03/03/20 05/25/20 [place] [address] [place] [address] Assigned PCP 05/26/20 09/28/20 [place] [address] [place] [address] Assigned PCP 09/29/20 07/31/22 Jesú[place] [address] [facility] [place] [address] Assigned Musculoskeletal Provider 10/20/20 04/17/22 Alfreda Ray PA-C [address] [place] [address] 455492 Referring Physician Family Medicine 12/31/21 Katrin Orellana PA-C [address] [place] [address] 626575 Physician Power Reactor Operator Dermatology 12/31/21 Shanna Vang PA-C [address] [place] [address] 392714 Assigned Cancer Care Provider 01/10/22 Fransisco Eddy MD [address] [place] [address] 70454 Assigned Rheumatology Provider 05/09/22 [place] [address] [place] [address] Assigned Pain Medication Provider 06/29/22 09/04/22 [place] [address] [place] [address] Assigned PCP 08/15/22 08/28/22 Katrin Orellana PA-C [address] [place] [address] 98 [place], [place] 577535 Assigned Surgical Provider 08/15/22 02/10/24 Cristina Hsieh [facility] [address] [facility] [place]BETH HERNANDEZ [address] Pharmacist Pharmacist 09/07/22 Alfreda Ray PA-C [address] [place] [address] 338222 Assigned Pain Medication Provider 09/05/22 09/10/23 Alfreda Ray PA-C [address] [place] [address]551 Assigned PCP 08/29/22 Cristina Hsieh [facility] [address] [address] Assigned MTM Pharmacist 09/26/22 Dakota Tatum MD [address] [place] [address] Cardiovascular Disease 03/25/23 Dakota Tatum MD [address] [place] [address]38 Assigned Heart and Vascular Provider 05/01/23 [place] [address] [facility], [address] [address] Assigned Musculoskeletal Provider 04/12/24 documented as of this encounter
--- OUTSIDE RECORDS SUMMARY | 2024-06-23 00:26 | XMS_ITS | Encounter Summary ---
Author Organization [place] Address [address] [place] [address] 97816 Care Team Providers Care Invoicing Specialist Name Role Phone Esperanza Gatica MD Primary Care Provider + Esperanza Gatica MD Unavailable +[phone] Esperanza Gatica MD Unavailable +[phone] Esperanza Gatica MD Unavailable +[phone] Esperanza Gatica MD Unavailable +[phone] Esperanza Gatica MD Unavailable +101 Esperanza Gatica MD Unavailable +[phone] Jesús Orourke MD Unavailable Alfreda RayC Primary Care Provider + Alfreda Ray PA-C Unavailable + [phone] Katrin Orellana PA-C Unavailable +[phone] Shanna VangC Unavailable +[phone] Fransisco Eddy MD Unavailable +[phone] Esperanza Gatica MD Unavailable +[phone] Esperanza Gatiac MD Unavailable +[phone] Katrin Orellana PA-C Unavailable Cristina Hsieh [facility] Unavailable RayAlfreda PA-C Unavailable +[phone] Cory Alfreda Liu PA-C Unavailable +[phone] Cristina Hsieh [facility] Unavailable +[phone] Dakota Tatum MD Unavailable [phone] Dakota Tatum MD Unavailable [phone] Srinivas Marie DO Unavailable [phone] Reason for Visit * Reason Onset Date Comments Refill Request 03/18/2015 Lisinopril-HCTZ Encounter Details Date Type Department Care Team (Late st Contact Info) Description 03/18/2015 MyC Refill [address], [address] [place] [address] [place] [address] [place] [address] Refill Request (Lisinopril-HCTZ) Social History [...] Sex Assigned at Female 08/17/2018 7:56 AM LAYAWAY CLERK Legal Sex Female 4:24 AM LAYAWAY CLERK Gender Identity Female 08/17/2018 7:56 AM LAYAWAY CLERK Sexual Orientation Straight 08/17/2018 7: 56 AM LAYAWAY CLERK documented as of this encounter Miscellaneous Notes * Telephone Encounter - Leigha Rinaldi RN - 03/18/2015 11:02 AM CDT Lisinopril-HCTZ Last Written Prescription Date: 12/24/2014 Last Fill Quantity: 90, # refills: 0 Last Office Visit with [facility] primary care provider: 12/06/2014 Next 5 appointments (look out 90 days) Apr 02, 2015 10:00 AM Pre-Op physical with Esperanza Gaitca MD [facility] [place], [address] [facility] [id number] POTASSIUM Date Value Ref Range Status 07/10/2014 4.3 3.4 - 5.3 mmol/L Final CREATININE Date Value Ref Range Status 07/10/2014 0.89 0.52 - 1.04 mg/dL Final BP Readings from Last 3 Encounters: 12/06/14 126/64 08/07/14 130/88 07/10/14 116/60 Prescription approved per [facility] Refill Protocol. Leigha Rinaldi RN * Telephone Encounter - Leigha Rinaldi RN - 03/18/2015 11:01 AM CDTMessage from [facility]: Original authorizing provider: MD Alexandria Brannon would like a refill of the following medications: lisinopril-hydrochlorothiazide (PRINZIDE,ZESTORETIC) 10-12.5 MG per tablet [Esperanza Gatica MD] Preferred pharmacy: [id number] [address] Comment: documented in this encounter Plan of Treatment Upcoming Encounters Date Type Department Care Team (Late st Contact Info) Description 09/07/2024 10:00 AM CDT Office Visit [facility] [address] [phone] Fransisco Eddy MD [address] [place] [address] 617315 03/29/2025 3:40 PM CDT Office Visit [address] [phone] Alfreda Ray PA-C [address] [place] [address] 994722 documented as of this encounter Visit Diagnoses Diagnosis HTN (hypertension), benign Essential hypertension, benign documented in this encounter Additional Health Concerns Infection Onset Date Last Indicated Resolved Time Rule Out COVID-19 05/08/2021 05/08/2021 05/09/2021 9:08 PM LAYAWAY CLERK documented as of this encounter Care Teams Invoicing Specialist Relationship Specialty Start Date End Date Esperanza Gatica MD PCP - General Family Practice 10/13/11 12/29/21 [place] [address] [place]ARCIA [address] PCP - Assigned PCP 12/05/17 08/23/18 Alfreda Ray PA-C [address] [place] [address] 487[address] PCP - General Family Medicine 12/30/21 [place] [address] [place]ARCIA [address] Assigned PCP 12/05/17 09/30/19 [place] [address] [place]ARCIA [address] Assigned PCP 10/01/19 03/02/20 [place] [address] [place] [address] Assigned PCP 03/03/20 05/25/20 [place] [address] [place]ARCIA [address]26 Assigned PCP 05/26/20 09/28/20 [place] [address] [place] [address] Assigned PCP 09/29/20 07/31/22 [place] [address] [place] [address] [address] Assigned Musculoskeletal Provider 10/20/20 04/17/22 Alfreda Ray PA-C [address] [place] [address] 65567 Referring Physician Family Medicine 12/31/21 Katrin Orellana PA-C [address] [place] [address] Physician Compressed Gas Plant Worker Dermatology 12/31/21 Shanna Vang PA-C [address] [address] Assigned Cancer Care Provider 01/10/22 Fransisco Eddy MD [address] [place] [address] 49615 Assigned Rheumatology Provider 05/09/22 [place] [address] [place]ARCIA [address] Assigned Pain Medication Provider 06/29/22 09/04/22 [place] [address] [place] [address] Assigned PCP 08/15/22 08/28/22 Katrin Orellana PA-C [address] [place] [address]307 Assigned Surgical Provider 08/15/22 02/10/24 Cristina Hsieh [facility] [address] [facility] LISBETH HERNANDEZ [address] Pharmacist Pharmacist 09/07/22 Alfreda Ray PA-C [address] [place] [address] 034922 Assigned Pain Medication Provider 09/05/22 09/10/23 Alfreda Ray PA-C [address] [place] [address] 090002 Assigned PCP 08/29/22 Cristina Hsieh [facility] [address] [place] [address]298 Assigned MTM Pharmacist 09/26/22 aDkota Tatum MD [address] [place] [address]771 Cardiovascular Disease 03/25/23 Dakota Tatum MD [address] [place] [address]19 Assigned Heart and Vascular Provider 05/01/23 [place] [address] [place] [address] [address] Assigned Musculoskeletal Provider 04/12/24 documented as of this encounter
--- OUTSIDE RECORDS SUMMARY | 2024-06-23 00:26 | XMS_ITS | Encounter Summary ---
Author Organization [place] Address [address] [place] [address]178 Care Team Providers Care Health Safety Instructor Name Role Phone Esperanza Gatica MD Primary Care Provider + Esperanza Gatica MD Unavailable +[phone] Esperanza Gatica MD Unavailable +[phone] Esperanza Gatica MD Unavailable +[phone] Esperanza Gatica MD Unavailable +[phone] Esperanza Gatica MD Unavailable +327 Esperanza Gatica MD Unavailable +[phone] Jesús Orourke MD Unavailable Alfreda RayC Primary Care Provider + Alfreda Ray PA-C Unavailable + [phone] Katrin Orellana PA-C Unavailable +[phone] Shanna VangC Unavailable +[phone] Fransisco Eddy MD Unavailable +[phone] Esperanza Gatica MD Unavailable +[phone] Esperanza Gatica MD Unavailable +[phone] Katrin Orellana PA-C Unavailable Cristina Hsieh [facility] Unavailable Cory Alfreda Liu PA-C Unavailable +[phone] Ho Raymustapha Liu PA-C Unavailable +[phone] Cristina Hsieh [facility] Unavailable [phone] Dakota Tatum MD Unavailable [phone] Dakota Tatum MD Unavailable [phone] Srinivas Marie DO Unavailable [phone] Reason for Visit * Reason Onset Date Comments Refill Request 02/07/2015 Trazodone 50mg Encounter Details Date Type Department Care Team (Late st Contact Info) Description 02/07/2015 MyC Refill [address], [facility] [address] [place] [address] [place] [address] [place] [address] Refill Request (Trazodone 50mg) [...] Assigned at Female 08/17/2018 7:56 AM RESIDENTIAL MENTAL HEALTH WORKER Legal Sex Female 4:24 AM RESIDENTIAL MENTAL HEALTH WORKER Gender Identity Female 08/17/2018 7:56 AM RESIDENTIAL MENTAL HEALTH WORKER Sexual Orientation Straight 08/17/2018 7: 56 AM RESIDENTIAL MENTAL HEALTH WORKER documented as of this encounter Miscellaneous [...] MG tablet [Esperanza Gatica MD] Preferred pharmacy: [facility] #[id number] - [address] Comment: documented in this encounter Plan of Treatment Upcoming Encounters Date Type Department Care Team (Late st Contact Info) Description 09/07/2024 10:00 AM CDT Office Visit [facility] [address] [place] [phone] Fransisco Eddy MD [address] [place] [address] 306395 03/29/2025 3:40 PM CDT Office Visit [address] [phone] Alfreda Ray PA-C [address] [place] [address] [phone] documented as of this encounter Visit Diagnoses Diagnosis Insomnia, unspecified documented in this encounter Additional Health Concerns Infection Onset Date Last Indicated Resolved Time Rule Out COVID-19 05/08/2021 05/08/2021 05/09/2021 9:08 PM RESIDENTIAL MENTAL HEALTH WORKER documented as of this encounter Care Teams Health Safety Instructor Relationship Specialty Start Date End Date Esperanza Gatica MD PCP - General Family Practice 10/13/11 12/29/21 [place] [address] [place] [address] PCP - Assigned PCP 12/05/17 08/23/18 Alfreda Ray PA-C [address] [place] [address], [place] [address] PCP - General Family Medicine 12/30/21 [place] [address] [place] [address] Assigned PCP 12/05/17 09/30/19 [place] [address] [place] [address] Assigned PCP 10/01/19 03/02/20 [place] [address] [place] [address] Assigned PCP 03/03/20 05/25/20 [place] [address] [place] [address] Assigned PCP 05/26/20 09/28/20 [place] [address] [place] [address] Assigned PCP 09/29/20 07/31/22 [place] [address] [place] [address] Assigned Musculoskeletal Provider 10/20/20 04/17/22 Alfreda Ray PA-C [facility] [place] [address] Referring Physician Family Medicine 12/31/21 Katrin Orellana PA-C [address] [place] [address] 780885 Physician Scientologist Dermatology 12/31/21 Shanna Vang PA-C [address] [place] [address] [phone] Assigned Cancer Care Provider 01/10/22 Fransisco Eddy MD [address] [place] [address] [phone] Assigned Rheumatology Provider 05/09/22 [place] [address] [place] [address] Assigned Pain Medication Provider 06/29/22 09/04/22 [place] [address] [place] [address] Assigned PCP 08/15/22 08/28/22 Katrin Orellana PA-C [address] [place] [address] 323835 Assigned Surgical Provider 08/15/22 02/10/24 Cristina Hsieh [facility] [address] [facility] LISBETH HERNANDEZ [phone] Pharmacist Pharmacist 09/07/22 Alfreda Ray PA-C [address] [place] [address] 679812 Assigned Pain Medication Provider 09/05/22 09/10/23 Alfreda Ray PA-C [address] [place] [address] 692602 Assigned PCP 08/29/22 Cristina Hsieh [facility] [address] [place] [address] Assigned MTM Pharmacist 09/26/22 Dakota Tatum MD [address] [place] [address] 055625 Cardiovascular Disease 03/25/23 Dakota Tatum MD [address] [place] [address] 662485 Assigned Heart and Vascular Provider 05/01/23 [place] [address] [address] Assigned Musculoskeletal Provider 04/12/24 documented as of this encounter
--- OUTSIDE RECORDS SUMMARY | 2024-06-23 00:26 | XMS_ITS | Encounter Summary ---
Author Organization [facility] Address [address] [place] [address] Care Team Providers Care Machinist Helper Marine Name Role Phone Esperanza Gatica MD Primary Care Provider + Esperanza Gatica MD Unavailable +[phone] Esperanza Gatica MD Unavailable +[phone] Esperanza Gatica MD Unavailable +[phone] Esperanza Gatica MD Unavailable +[phone] Esperanza Gatica MD Unavailable +[phone] Esperanza Gatica MD Unavailable +[phone] Jesús Orourke MD Unavailable Alfreda RayC Primary Care Provider + Alfreda Ray PA-C Unavailable + [phone] Katrin Orellana PA-C Unavailable +[phone] Shanna VangC Unavailable +[phone] Fransisco Eddy MD Unavailable +[phone] Esperanza Gatica MD Unavailable +[phone] Esperanza Gatica MD Unavailable +[phone] Katrin Orellana PA-C Unavailable Cristina Hsieh [facility] Unavailable Cory Alfreda Liu PA-C Unavailable +[phone] Cory Alfreda Liu PA-C Unavailable +[phone] Cristina Hsieh [facility] Unavailable +[phone] Dakota Tatum MD Unavailable Dakota Tatum MD Unavailable [phone] Srinivas Marie DO Unavailable [phone] Reason for Visit * Reason Onset Date Comments Refill Request 01/15/2015 Atenolol 25mg Encounter Details Date Type Department Care Team (Late st Contact Info) Description 01/15/2015 MyC Refill [address], [facility] [address] [place] [address] [place] [address] [place] [address] Refill Request (Atenolol 25mg) Social [...] Assigned at Female 08/17/2018 7:56 AM ASSISTANT DISTRIBUTION MANAGER Legal Sex Female 4:24 AM ASSISTANT DISTRIBUTION MANAGER Gender Identity Female 08/17/2018 7:56 AM ASSISTANT DISTRIBUTION MANAGER Sexual Orientation Straight 08/17/2018 7: 56 AM ASSISTANT DISTRIBUTION MANAGER documented as of this encounter Miscellaneous Notes * Telephone Encounter - Leigha Rinaldi RN - 01/15/2015 10:29 AM CDT Atenolol 25mg Last Written Prescription Date: 07/10/2014 Last Fill Quantity: 90, # refills: 1 Last Office Visit with [facility] primary care provider: 12/06/2014 Future Office Visit: BP Readings from Last 3 Encounters: 12/06/14 126/64 08/07/14 130/88 07/10/14 116/60 Prescription approved per [facility] Refill Protocol. Leigha Rinaldi RN * Telephone Encounter - Leigha Rinaldi RN - 01/15/2015 10:28 AM [facility] Original authorizing provider: MD Alexandria Brannon would like a refill of the following medications: atenolol (TENORMIN) 25 MG tablet [Esperanza Gatica MD] Preferred pharmacy: [id number] Comment: documented in this encounter Plan of Treatment Upcoming Encounters Date Type Department Care Team (Late st Contact Info) Description 09/07/2024 10:00 AM CDT Office Visit [facility] Specialty [address] [phone] Fransisco Eddy MD [address] [place] [address] 953535 03/29/2025 3:40 PM CDT Office Visit [address] [phone] Alfreda Ray PA-C [address] [place] [address] 192732 documented as of this encounter Visit Diagnoses Diagnosis HTN (hypertension), benign Essential hypertension, benign documented in this encounter Additional Health Concerns Infection Onset Date Last Indicated Resolved Time Rule Out COVID-19 05/08/2021 05/08/2021 05/09/2021 9:08 PM ASSISTANT DISTRIBUTION MANAGER documented as of this encounter Care Teams Machinist Helper Marine Relationship Specialty Start Date End Date Esperanza Gatica MD PCP - General Family Practice 10/13/11 12/29/21 [place] [address] [place] [address] PCP - Assigned PCP 12/05/17 08/23/18 Alfreda Ray PA-C [address] [place] [address] 26535 PCP - General Family Medicine 12/30/21 [place] [address] [place], [place] [address] Assigned PCP 12/05/17 09/30/19 [place] [address] [place], [place] [address] Assigned PCP 10/01/19 03/02/20 [place] [address] [place], LISBETH [address] Assigned PCP 03/03/20 05/25/20 [place] [address] [place] GARC[place] [address] Assigned PCP 05/26/20 09/28/20 [place] [address] [place] [address] Assigned PCP 09/29/20 07/31/22 Jesú[place] [address] [place] [address] Assigned Musculoskeletal Provider 10/20/20 04/17/22 Alfreda Ray PA-C [address] [place] [address] 968102 Referring Physician Family Medicine 12/31/21 Katrin Orellana PA-C [address] [place] [address]63 Physician Manager Sports Dermatology 12/31/21 Shanna Vang PA-C [address] [place] [address] 76185 Assigned Cancer Care Provider 01/10/22 Fransisco Eddy MD [address] [place] [address] [phone] Assigned Rheumatology Provider 05/09/22 [place] [address] [place] [address] Assigned Pain Medication Provider 06/29/22 09/04/22 [place] [address] [address] [facility] [place] [address] Assigned PCP 08/15/22 08/28/22 Katrin Orellana PA-C [address] [place] [address] 97860 Assigned Surgical Provider 08/15/22 02/10/24 Cristina Hsieh [facility] [address] [place] [address] Pharmacist Pharmacist 09/07/22 Alfreda Ray PA-C [address] [place] [address] 27493 Assigned Pain Medication Provider 09/05/22 09/10/23 Alfreda Ray PA-C [address] [place] [address] 48323 Assigned PCP 08/29/22 Cristina Hsieh, [facility] [address] [place] [address] 19046 Assigned MTM Pharmacist 09/26/22 Dakota Tatum MD [address] [place] [address]507 Cardiovascular Disease 03/25/23 Dakota Tatum MD [address] [place] [address] 21673 Assigned Heart and Vascular Provider 05/01/23 [place] [address] [place] , [address] [address] Assigned Musculoskeletal Provider 04/12/24 documented as of this encounter
--- OUTSIDE RECORDS SUMMARY | 2024-06-23 00:26 | XMS_ITS | Encounter Summary ---
Author Organization [facility] Address [address] [place] [address]990 Care Team Providers Care Flue Dust Laborer Name Role Phone Esperanza Gatica MD Primary Care Provider + Esperanza Gatica MD Unavailable +[phone] Esperanza Gatica MD Unavailable +[phone] Esperanza Gatica MD Unavailable +[phone] Esperanza Gatica MD Unavailable +[phone] Esperanza Gatica MD Unavailable +[phone] Esperanza Gatica MD Unavailable +[phone] Jesús Orourke MD Unavailable Alfreda RayC Primary Care Provider + Alfreda Ray PA-C Unavailable + [phone] Katrin Orellana PA-C Unavailable [phone] Shanna VangC Unavailable +[phone] Fransisco Eddy MD Unavailable +[phone] Esperanza Gatica MD Unavailable +[phone] Esperanza Gatica MD Unavailable +[phone] Katrin Orellana PA-C Unavailable Cristina Hsieh [facility] Unavailable Cory Alfreda Liu PA-C Unavailable +[phone] Ho Raymustapha Liu PA-C Unavailable +[phone] Cristina Hsieh [facility] Unavailable [phone] Dakota Tatum MD Unavailable [phone] Dakota Tatum MD Unavailable [phone] Srinivas Marie DO Unavailable [phone] Reason for Visit * Reason Onset Date Comments Refill Request 07/02/2014 Tramadol 50mg Encounter Details Date Type Department Care Team (Late st Contact Info) Description 07/02/2014 MyC Medical Advice [address], [facility] 100 [place] [address] [place] [address] [place] [address] Refill Request (Tramadol 50mg) Social History Tobacco Use Types Packs/Day Years Used Date Smoking Tobacco: Former Cigarettes Q uit: 06/21/1973 Smokeless Tobacco: Former Alcohol Use Standard Drinks/Week Comments Yes 0 (1 standard drink = 0.6 oz pur e alcohol) rarely Comments No Sex and Gender Information Value Date Recorded Sex Assigned at Female 08/17/2018 7:56 AM HOUSE DESIGNER Legal Sex Female 4:24 AM HOUSE DESIGNER Gender Identity Female 08/17/2018 7:56 AM HOUSE DESIGNER Sexual Orientation Straight 08/17/2018 7: 56 AM HOUSE DESIGNER documented as of this encounter Miscellaneous Notes * Telephone Encounter - Leigha Rinaldi RN - 07/03/2014 9:13 AM CST Pending Prescriptions: Disp Refills traMADol (ULTRAM) 50 MG tablet 30 tab*0 Sig: Take 1 tablet (50 mg) by mouth every 6 hours as needed for pain Last OV: 03/29/2014 Reason: IBS Last filled: 06/04/2014 #30 Leigha Rinaldi RN E DESIGNER documented in this encounter Plan of Treatment Upcoming Encounters Date Type Department Care Team (Late st Contact Info) Description 09/07/2024 10:00 AM CDT Office Visit [facility] [address] [place] [phone] Fransisco Eddy MD [address] [place] [address] [phone] 03/29/2025 3:40 PM CDT Office Visit [address] [phone] Alfreda Ray PA-C [address] [place] [address] 160862 documented as of this encounter Visit Diagnoses Diagnosis HTN (hypertension), benign- Primary Essential hypertension, benign documented in this encounter Additional Health Concerns Infection Onset Date Last Indicated Resolved Time Rule Out COVID-19 05/08/2021 05/08/2021 05/09/2021 9:08 PM HOUSE DESIGNER documented as of this encounter Care Teams Flue Dust Laborer Relationship Specialty Start Date End Date Esperanza Gatica MD PCP - General Family Practice 10/13/11 12/29/21 [place] [address] [place]ARC[place] [address] PCP - Assigned PCP 12/05/17 08/23/18 Alfreda Ray PA-C [address] [place] [address] 75481 PCP - General Family Medicine 12/30/21 [place] [address] [place] [address] Assigned PCP 12/05/17 09/30/19 [place] [address] [place] [address] Assigned PCP 10/01/19 03/02/20 [place] [address] [place] [address] Assigned PCP 03/03/20 05/25/20 [place] [address] [place] [address] Assigned PCP 05/26/20 09/28/20 [place] [address] [place] [address] Assigned PCP 09/29/20 07/31/22 Jesú[place] [address] [place] [address] Assigned Musculoskeletal Provider 10/20/20 04/17/22 Alfreda Ray PA-C [address] [place] [address] 954802 Referring Physician Family Medicine 12/31/21 Katrin Orellana PA-C [address] [place] [address]45 Physician Operator Lights Dermatology 12/31/21 Shanna Vang PA-C [address] [place] [address] Assigned Cancer Care Provider 01/10/22 Fransisco Eddy MD [address] [place] [address] 88 [place] [address] Assigned Rheumatology Provider 05/09/22 [place] [address] [place] [address] Assigned Pain Medication Provider 06/29/22 09/04/22 [place] [address] [address] [facility] [address] Assigned PCP 08/15/22 08/28/22 Katrin Orellana PA-C [address] [place] [address] 98 [place] [address] Assigned Surgical Provider 08/15/22 02/10/24 Cristina Hsieh [facility] [address] [place] [address] [place] [address] Pharmacist Pharmacist 09/07/22 Alfreda Ray PA-C [address] [place] [address] 493882 Assigned Pain Medication Provider 09/05/22 09/10/23 Alfreda Ray PA-C [address] [place] [address] 03329 Assigned PCP 08/29/22 Cristina Hsieh [facility] [address] [facility] 101 [place] [address] Assigned MTM Pharmacist 09/26/22 Dakota Tatum MD [address] [place] [address] 08978 Cardiovascular Disease 03/25/23 Dakota Tatum MD [address] [place] [address] 96854 Assigned Heart and Vascular Provider 05/01/23 [place] [address] [address], [facility] [address] [place] [address] Assigned Musculoskeletal Provider 04/12/24 documented as of this encounter
--- OUTSIDE RECORDS SUMMARY | 2024-06-23 00:27 | XMS_ITS | Encounter Summary ---
Author Organization [facility] Address [address] [place] [address] Care Team Providers Care Shot Peen Operator Name Role Phone Esperanza Gatica MD Primary Care Provider + Esperanza Gatica MD Unavailable +[phone] Esperanza Gatica MD Unavailable +[phone] Esperanza Gatica MD Unavailable +[phone] Esperanza Gatica MD Unavailable +104 Esperanza Gatica MD Unavailable +535 Esperanza Gatica MD Unavailable +[phone] Jesús Orourke MD Unavailable Alfreda RayC Primary Care Provider + Alfreda Ray PA-C Unavailable + [phone] Katrin Orellana PA-C Unavailable [phone] Shanna VangC Unavailable +[phone] Fransisco Eddy MD Unavailable +[phone] Esperanza Gatica MD Unavailable +[phone] Esperanza Gatica MD Unavailable +[phone] Katrin Orellana PA-C Unavailable Cristina Hsieh [facility] Unavailable RayAlfreda PA-C Unavailable +[phone] Cory Alfreda Liu PA-C Unavailable +[phone] Cristina Hsieh [facility] Unavailable Dakota Tatum MD Unavailable Dakota Tatum MD Unavailable [phone] Srinivas Marie DO Unavailable [phone] Reason for Visit * Reason Onset Date Comments Refill Request 12/19/2013 Kim, Lisinopri l-HCTZ Encounter Details Date Type Department Care Team (Late st Contact Info) Description 12/19/2013 MyC Refill M [address], [address] [place] [address] [place] [address] [place] [address] Refill Request (Kim, Lisinopril-HCTZ) Social History Tobacco Use Types Packs/Day Years Used Date Smoking Tobacco: Former Cigarettes Q uit: 06/21/1973 Smokeless Tobacco: Former Alcohol Use Standard Drinks/Week Comments Yes 0 (1 standard drink = 0.6 oz pur e alcohol) rarely Comments No Sex and Gender Information Value Date Recorded Sex Assigned at Female 08/17/2018 7:56 AM EMBLEM DRAWER IN Legal Sex Female 4:24 AM EMBLEM DRAWER IN Gender Identity Female 08/17/2018 7:56 AM EMBLEM DRAWER IN Sexual Orientation Straight 08/17/2018 7: 56 AM EMBLEM DRAWER IN documented as of this encounter Miscellaneous Notes [...] RN - 12/19/2013 10:21 AM [facility] Original authorizing provider: MD Alexandria Brannon would like a refill of the following medications: HYDROcodone-acetaminophen (NORCO) 5-325 MG per tablet [Esperanza Gatica MD] Preferred pharmacy: [facility] #[id number] Comment: Dr. Gatica is my Doctor. Medication renewals requested in this message routed to other providers: lisinopril-hydrochlorothiazide (PRINZIDE,ZESTORETIC) 10-12.5 MG per tablet [Royer Brumfield MD] documented in this encounter Plan of Treatment Upcoming Encounters Date Type Department Care Team (Late st Contact Info) Description 09/07/2024 10:00 AM CDT Office Visit [facility] Specialty [address] [phone] Fransisco Eddy MD [address] [place] [address] 438555 03/29/2025 3:40 PM CDT Office Visit [address] [phone] Alfreda Ray PA-C [address] [place] [address] [phone] documented as of this encounter Visit Diagnoses Diagnosis Osteoarthritis Osteoarthrosis, unspecified whether generalized or localized, unspecified site HTN (hypertension), benign Essential hypertension, benign documented in this encounter Additional Health Concerns Infection Onset Date Last Indicated Resolved Time Rule Out COVID-19 05/08/2021 05/08/2021 05/09/2021 9:08 PM EMBLEM DRAWER IN documented as of this encounter Care Teams Shot Peen Operator Relationship Specialty Start Date End Date Esperanza Gatica MD PCP - General Family Practice 10/13/11 12/29/21 [place] [address] [place]ARC[place] [address] PCP - Assigned PCP 12/05/17 08/23/18 Alfreda Ray PA-C [address] [place] [address]3532 PCP - General Family Medicine 12/30/21 [place] [address] [place] [address] Assigned PCP 12/05/17 09/30/19 [place] [address] [place] [address] Assigned PCP 10/01/19 03/02/20 [place] [address] [place] [address] Assigned PCP 03/03/20 05/25/20 [place] [address] [place] [address] Assigned PCP 05/26/20 09/28/20 [place] [address] [place] [address] Assigned PCP 09/29/20 07/31/22 [place] [address] [place] [address] [address] Assigned Musculoskeletal Provider 10/20/20 04/17/22 Alfreda Ray PA-C [address] [place] [address]52 Referring Physician Family Medicine 12/31/21 Katrin Orellana PA-C [address] [place] [address] Physician Cipher Expert Dermatology 12/31/21 Shanna Vang PA-C [address] [address] Assigned Cancer Care Provider 01/10/22 Fransisco Eddy MD [address] [place] [address] 74777 Assigned Rheumatology Provider 05/09/22 [place] [address] [place] [address] Assigned Pain Medication Provider 06/29/22 09/04/22 [place] [address] [place] [address] Assigned PCP 08/15/22 08/28/22 Katrin Orellana PA-C [address] [place] [address] 91741 Assigned Surgical Provider 08/15/22 02/10/24 Cristina Hsieh [facility] [address] [facility] [place] [address] Pharmacist Pharmacist 09/07/22 Alfreda Ray PA-C [address] [place] [address] 692422 Assigned Pain Medication Provider 09/05/22 09/10/23 Alfreda Ray PA-C [address] [place] [address] 695342 Assigned PCP 08/29/22 Cristina Hsieh [facility] [address] [place] [address] 56[address] Assigned MTM Pharmacist 09/26/22 Dakota Tatum MD [address] [place] [address] 77616 Cardiovascular Disease 03/25/23 Dakota Tatum MD [address] [place] [address]96 Assigned Heart and Vascular Provider 05/01/23 [place] [address] [place] [address] 450987 Assigned Musculoskeletal Provider 04/12/24 documented as of this encounter
--- OUTSIDE RECORDS SUMMARY | 2024-06-23 00:27 | XMS_ITS | Encounter Summary ---
Author Organization [facility] Address [address] [place] [address] Care Team Providers Care Senior Media Buyer Name Role Phone Esperanza Gatica MD Primary Care Provider + Esperanza Gatica MD Unavailable +[phone] Esperanza Gatica MD Unavailable +[phone] Esperanza Gatica MD Unavailable +[phone] Esperanza Gatica MD Unavailable +[phone] Esperanza Gatica MD Unavailable +[phone] Esperanza Gatica MD Unavailable +[phone] Jesús Orourke MD Unavailable Alfreda RayC Primary Care Provider + Alfreda Ray PA-C Unavailable + [phone] Katrin Orellana PA-C Unavailable +[phone] Shanna VangC Unavailable +[phone] Fransisco Eddy MD Unavailable +[phone] Esperanza Gatica MD Unavailable +[phone] Esperanza Gatica MD Unavailable +[phone] Katrin Orellana PA-C Unavailable Cristina Hsieh [facility] Unavailable Cory Alfreda Liu PA-C Unavailable +[phone] Ho Raymustapha Liu PA-C Unavailable +[phone] Cristina Hsieh [facility] Unavailable +[phone] Dakota Tatum MD Unavailable +[phone] Dakota Tatum MD Unavailable [phone] Srinivas Marie DO Unavailable [phone] Reason for Visit * Reason Onset Date Comments Refill Request 05/06/2014 Tramadol 50mg Encounter Details Date Type Department Care Team (Late st Contact Info) Description 05/06/2014 MyC Refill [address], [facility] [address] [place] [address] [place] [address] [place] [address] Refill Request (Tramadol 50mg) Social History Tobacco Use Types Packs/Day Years Used Date Smoking Tobacco: Former Cigarettes Q uit: 06/21/1973 Smokeless Tobacco: Former Alcohol Use Standard Drinks/Week Comments Yes 0 (1 standard drink = 0.6 oz pur e alcohol) rarely Comments No Sex and Gender Information Value Date Recorded Sex Assigned at Female 08/17/2018 7:56 AM PLANT FLOOR AUTOMATION MANAGER Legal Sex Female 4:24 AM PLANT FLOOR AUTOMATION MANAGER Gender Identity Female 08/17/2018 7:56 AM PLANT FLOOR AUTOMATION MANAGER Sexual Orientation Straight 08/17/2018 7: 56 AM PLANT FLOOR AUTOMATION MANAGER documented as of this encounter Miscellaneous Notes * Telephone Encounter - Leigha Rinaldi RN - 05/07/2014 2:40 PM CST Pending Prescriptions: Disp Refills traMADol (ULTRAM) 50 MG tablet 30 tab*0 Sig: Take 1 tablet (50 mg) by mouth every 6 hours as needed for pain Last OV: 03/29/2014 Reason: IBS Last filled: 04/09/2014 #30 Leigha Rinaldi RN T FLOOR AUTOMATION MANAGER * Telephone Encounter - Leigha Rinaldi RN - 05/07/2014 2:39 PM [facility]STMessage [facility]: Original authorizing provider: MD Alexandria Brannon would like a refill of the following medications: traMADol (ULTRAM) 50 MG tablet [Esperanza Gatica MD] Preferred pharmacy: [id number] Comment: T FLOOR AUTOMATION MANAGER documented in this encounter Plan of Treatment Upcoming Encounters Date Type Department Care Team (Late st Contact Info) Description 09/07/2024 10:00 AM CDT Office Visit [address] 200 [place] [phone] Fransisco Eddy MD [address] [place] [address] 773115 03/29/2025 3:40 PM CDT Office Visit [address] [phone] Alfreda Ray PA-C [address] [place] [address] [phone] documented as of this encounter Visit Diagnoses Diagnosis HTN (hypertension), benign Essential hypertension, benign documented in this encounter Additional Health Concerns Infection Onset Date Last Indicated Resolved Time Rule Out COVID-19 05/08/2021 05/08/2021 05/09/2021 9:08 PM PLANT FLOOR AUTOMATION MANAGER documented as of this encounter Care Teams Senior Media Buyer Relationship Specialty Start Date End Date Esperanza Gatica MD PCP - General Family Practice 10/13/11 12/29/21 [place] [address] [place] [address] PCP - Assigned PCP 12/05/17 08/23/18 Alfreda Ray PA-C [address] [place] [address]70 PCP - General Family Medicine 12/30/21 [place] [address] [place] [address] Assigned PCP 12/05/17 09/30/19 [place] [address] [place] [address] Assigned PCP 10/01/19 03/02/20 [place] [address] [place] [address] Assigned PCP 03/03/20 05/25/20 [place] [address] [place] [address] Assigned PCP 05/26/20 09/28/20 [place] [address] [place] [address] Assigned PCP 09/29/20 07/31/22 Jesú[place] [address] [place] [address] Assigned Musculoskeletal Provider 10/20/20 04/17/22 Alfreda Ray PA-C [address] [place] [address] Referring Physician Family Medicine 12/31/21 Katrin Orellana PA-C [address] [place] [address]334 Physician System Developer Associate Manager Dermatology 12/31/21 Shanna Vang PA-C [address] [address] Assigned Cancer Care Provider 01/10/22 Fransisco Eddy MD [address] [place] [address] Assigned Rheumatology Provider 05/09/22 [place] [address] [place] [address] Assigned Pain Medication Provider 06/29/22 09/04/22 [place] [address] [place] [address] Assigned PCP 08/15/22 08/28/22 Katrin Orellana PA-C [address] [place] [address] Assigned Surgical Provider 08/15/22 02/10/24 Cristina Hsieh [facility] [address] [facility] [place] [address] Pharmacist Pharmacist 09/07/22 Alfreda Ray PA-C [address] [place] [address] Assigned Pain Medication Provider 09/05/22 09/10/23 Alfreda Ray PA-C [address] [place] [address]38 Assigned PCP 08/29/22 Cristina Hsieh, [facility] [address] [place] [address] Assigned MTM Pharmacist 09/26/22 Dakota Tatum MD [address] [place] [address]83 Cardiovascular Disease 03/25/23 Dakota Tatum MD [address] [place] [address] 27831 Assigned Heart and Vascular Provider 05/01/23 [place] [address] [facility], [address] [address] Assigned Musculoskeletal Provider 04/12/24 documented as of this encounter
--- OUTSIDE RECORDS SUMMARY | 2024-06-23 00:27 | XMS_ITS | Encounter Summary ---
Author Organization [facility] Address [address] [place] [address] Care Team Providers Care Camera Person Name Role Phone Esperanza Gatica MD Primary Care Provider + Esperanza Gatica MD Unavailable +[phone] Esperanza Gatica MD Unavailable +[phone] Esperanza Gatica MD Unavailable +393 Esperanza Gatica MD Unavailable +263 Esperanza Gatica MD Unavailable +[phone] Esperanza Gatica MD Unavailable +[phone] Jesús Orourke MD Unavailable Alfreda RayC Primary Care Provider + Alfreda Ray PA-C Unavailable + [phone] Katrin Orellana PA-C Unavailable +[phone] Shanna VangC Unavailable +[phone] Fransisco Eddy MD Unavailable +[phone] Esperanza Gatica MD Unavailable +[phone] Esperanza Gatica MD Unavailable +[phone] Katrin Orellana PA-C Unavailable Cristina Hsieh [facility] Unavailable RayAlfreda PA-C Unavailable +[phone] Cory Alfreda Liu PA-C Unavailable +[phone] Cristina Hsieh [facility] Unavailable Dakota Tatum MD Unavailable +[phone] Dakota Tatum MD Unavailable +[phone] Srinivas Marie DO Unavailable [phone] Reason for Visit * Reason Onset Date Comments Refill Request 03/03/2014 Tramadol, Trazod one Encounter Details Date Type Department Care Team (Late st Contact Info) Description 03/03/2014 MyC Refill [address], [address] [place] [address] [place] [address] [place] [address] Refill Request (Tramadol, Trazodone) Social History Tobacco Use Types Packs/Day Years Used Date Smoking Tobacco: Former Cigarettes Q uit: 06/21/1973 Smokeless Tobacco: Former Alcohol Use Standard Drinks/Week Comments Yes 0 (1 standard drink = 0.6 oz pur e alcohol) rarely Comments No Sex and Gender Information Value Date Recorded Sex Assigned at Female 08/17/2018 7:56 AM BAKERY WORKER CONVEYOR LINE Legal Sex Female 4:24 AM BAKERY WORKER CONVEYOR LINE Gender Identity Female 08/17/2018 7:56 AM BAKERY WORKER CONVEYOR LINE Sexual Orientation Straight 08/17/2018 7: 56 AM BAKERY WORKER CONVEYOR LINE documented as of this encounter Miscellaneous [...] Back pain Last filled: 02/07/2014 #30 Leigha Rianldi RN * Telephone Encounter - Leigha Rinaldi RN - 03/05/2014 7:53 AM [facility] Original authorizing provider: MD Alexandria Triplett would like a refill of the following medications: traMADol (ULTRAM) 50 MG tablet [Royer Brumfield MD] Preferred pharmacy: [id number] Comment: Medication renewals requested in this message routed to other providers: traZODone (DESYREL) 50 MG tablet [Esperanza Gatica MD] documented in this encounter Plan of Treatment Upcoming Encounters Date Type Department Care Team (Late st Contact Info) Description 09/07/2024 10:00 AM CDT Office Visit [address] [phone] Fransisco Eddy MD [address] [place] [address] 539645 03/29/2025 3:40 PM CDT Office Visit [address] [phone] Alfreda Ray PA-C [address] [place] [address] 269582 documented as of this encounter Visit Diagnoses Diagnosis HTN (hypertension), benign Essential hypertension, benign Insomnia, unspecified documented in this encounter Additional Health Concerns Infection Onset Date Last Indicated Resolved Time Rule Out COVID-19 05/08/2021 05/08/2021 05/09/2021 9:08 PM BAKERY WORKER CONVEYOR LINE documented as of this encounter Care Teams Camera Person Relationship Specialty Start Date End Date Esperanza Gatica MD PCP - General Family Practice 10/13/11 12/29/21 [place] [address] [place] [address] PCP - Assigned PCP 12/05/17 08/23/18 Alfreda Ray PA-C [address] [place] [address], [place] [address] PCP - General Family Medicine 12/30/21 [place] [address] [place] [address] Assigned PCP 12/05/17 09/30/19 [place] [address] [place] [address] Assigned PCP 10/01/19 03/02/20 [place] [address] [place] [address] Assigned PCP 03/03/20 05/25/20 [place] [address] [place] [address] Assigned PCP 05/26/20 09/28/20 [place] [address] [place] [address] Assigned PCP 09/29/20 07/31/22 [place] [address] [place] [address] Assigned Musculoskeletal Provider 10/20/20 04/17/22 Alfreda Ray PA-C [address] [place] [address] 601452 Referring Physician Family Medicine 12/31/21 Katrin Orellana PA-C [address] [place] [address] 911335 Physician Loan Closer Dermatology 12/31/21 Shanna Vang PA-C [address] 737664 Assigned Cancer Care Provider 01/10/22 Fransisco Eddy MD [address] [place] [address] 827685 Assigned Rheumatology Provider 05/09/22 [place] [address] [place] [address] Assigned Pain Medication Provider 06/29/22 09/04/22 [place] [address] [address]ARC[address] [address] Assigned PCP 08/15/22 08/28/22 Katrin Orellana PA-C [address] [place] [address] 708985 Assigned Surgical Provider 08/15/22 02/10/24 Cristina Hsieh, [facility] [address] [facility] [place] [address] Pharmacist Pharmacist 09/07/22 Alfreda Ray PA-C [address] [place] [address] 529712 Assigned Pain Medication Provider 09/05/22 09/10/23 Alfreda Ray PA-C [address] [place] [address] [phone] Assigned PCP 08/29/22 Cristina Hsieh, [facility] [address] [address] Assigned MTM Pharmacist 09/26/22 Dakota Tatum MD [address] [place] [address] 287[address] Cardiovascular Disease 03/25/23 Dakota Tatum MD [address] [place] [address] 44626 Assigned Heart and Vascular Provider 05/01/23 [place] [address] [address], [address] [address] Assigned Musculoskeletal Provider 04/12/24 documented as of this encounter
--- OUTSIDE RECORDS SUMMARY | 2024-06-23 00:27 | XMS_ITS | Encounter Summary ---
Author Organization [facility] Address [address] [place] [address] Care Team Providers Care Lab Assistant Name Role Phone Esperanza Gatica MD Primary Care Provider + Esperanza Gatica MD Unavailable +[phone] Esperanza Gatica MD Unavailable +[phone] Esperanza Gatica MD Unavailable +[phone] Esperanza Gatica MD Unavailable +[phone] Esperanza Gatica MD Unavailable +[phone] Esperanza Gatica MD Unavailable +[phone] Jesús Orourke MD Unavailable Alfreda RayC Primary Care Provider + Alfreda Ray PA-C Unavailable + [phone] Katrin Orellana PA-C Unavailable +[phone] Shanna VangC Unavailable +[phone] Fransisco Eddy MD Unavailable +[phone] Esperanza Gatica MD Unavailable +[phone] Esperanza Gatica MD Unavailable +[phone] Katrin Orellana PA-C Unavailable Cristina Hsieh [facility] Unavailable Cory Alfreda Liu PA-C Unavailable +[phone] Ho Raymustapha Liu PA-C Unavailable +[phone] Cristina Hsieh [facility] Unavailable +[phone] Dakota Tatum MD Unavailable [phone] Dakota Tatum MD Unavailable [phone] Srinivas Marie DO Unavailable [phone] Reason for Visit * Reason Onset Date Comments Back Pain 10/20/2013 ortho referral Encounter Details Date Type Department Care Team (Late st Contact Info) Description 10/20/2013 MyC Medical Advice [address], [address] [place] [address] [place] [address] [place] [address] Back Pain (ortho referral) Social History Tobacco Use Types Packs/Day Years Used Date Smoking Tobacco: Former Cigarettes Q uit: 06/21/1973 Smokeless Tobacco: Former Alcohol Use Standard Drinks/Week Comments Yes 0 (1 standard drink = 0.6 oz pur e alcohol) rarely Comments No Sex and Gender Information Value Date Recorded Sex Assigned at Female 08/17/2018 7:56 AM METAL CEILING BUILDER Legal Sex Female 4:24 AM METAL CEILING BUILDER Gender Identity Female 08/17/2018 7:56 AM METAL CEILING BUILDER Sexual Orientation Straight 08/17/2018 7: 56 AM METAL CEILING BUILDER documented as of this encounter Miscellaneous Notes [...] Office Visit [facility] [address] [place] [phone] Fransisco Eddy MD [address] [place] [address] 03/29/2025 3:40 PM CDT Office Visit [address] [phone] Alfreda Ray PA-C [address] [place] [address] 952462 documented as of this encounter Visit Diagnoses Not on filedocumented in this encounter Additional Health Concerns Infection Onset Date Last Indicated Resolved Time Rule Out COVID-19 05/08/2021 05/08/2021 05/09/2021 9:08 PM METAL CEILING BUILDER documented as of this encounter Care Teams Lab Assistant Relationship Specialty Start Date End Date Esperanza Gatica MD PCP - General Family Practice 10/13/11 12/29/21 [place] [address] [address] [place]ARCIA [address] PCP - Assigned PCP 12/05/17 08/23/18 Alfreda Ray PA-C [address] [place] [address] PCP - General Family Medicine 12/30/21 [place] [address] [address] [address] Assigned PCP 12/05/17 09/30/19 [place] [address] [address] [place] [address] Assigned PCP 10/01/19 03/02/20 [place] [address] [place] [address] Assigned PCP 03/03/20 05/25/20 [place] [address] [address] GARCIA [address] Assigned PCP 05/26/20 09/28/20 [place] [address] [address]IA [address] Assigned PCP 09/29/20 07/31/22 Jesú[place] [address] [address] Assigned Musculoskeletal Provider 10/20/20 04/17/22 Alfreda Ray PA-C [address] [place] [address] 264892 Referring Physician Family Medicine 12/31/21 Katrin Orellana PA-C [address] [place] [address] 188425 Physician Associate Sales Manager Dermatology 12/31/21 Shanna Vang PA-C [address] [place] [address] 967754 Assigned Cancer Care Provider 01/10/22 Fransisco Eddy MD [address] [place] [address] Assigned Rheumatology Provider 05/09/22 [place] [address] [place] [address] Assigned Pain Medication Provider 06/29/22 09/04/22 [place] [address] [address] [facility] [place] [address] Assigned PCP 08/15/22 08/28/22 Katrin Orellana PA-C [address] [place] [address] Assigned Surgical Provider 08/15/22 02/10/24 [place] [address] [place] [address] L[place] HERNANDEZ [address] Pharmacist Pharmacist 09/07/22 Alfreda Ray PA-C [address] [place] [address] Assigned Pain Medication Provider 09/05/22 09/10/23 Alfreda Ray PA-C [address] [place] [address] Assigned PCP 08/29/22 Cristina Hsieh [facility] [address] [address] Assigned MTM Pharmacist 09/26/22 Dakota Tatum MD [address] [place] [address] Cardiovascular Disease 03/25/23 Dakota Tatum MD [address] [place] [address] Assigned Heart and Vascular Provider 05/01/23 [place] [address] CE[address]UM, [address] [address] Assigned Musculoskeletal Provider 04/12/24 documented as of this encounter
--- OUTSIDE RECORDS SUMMARY | 2024-06-23 00:27 | XMS_ITS | Encounter Summary ---
Author Organization [facility] Address [address] [place] [address] Care Team Providers Care Mapping Pilot Name Role Phone Esperanza Gatica MD Primary Care Provider + Esperanza Gatica MD Unavailable +[phone] Esperanza Gatica MD Unavailable +[phone] Esperanza Gatica MD Unavailable +[phone] Esperanza Gatica MD Unavailable +448 Esperanza Gatica MD Unavailable +[phone] Esperanza Gatica MD Unavailable +[phone] Jesús Orourke MD Unavailable Alfreda RayC Primary Care Provider + Alfreda Ray PA-C Unavailable + [phone] Katrin Orellana PA-C Unavailable +[phone] Shanna VangC Unavailable +[phone] Fransisco Eddy MD Unavailable +[phone] Esperanza Gatica MD Unavailable +[phone] Esperanza Gatica MD Unavailable +[phone] Katrin Orellana PA-C Unavailable Cristina Hsieh [facility] Unavailable Cory Alfreda Liu PA-C Unavailable Alfreda Ray Alexa KING Unavailable [phone] Cristina Hsieh [facility] Unavailable Dakota Tatum MD Unavailable Dakota Tatum MD Unavailable [phone] Srinivas Marie DO Unavailable [phone] Reason for Visit * Reason Onset Date Comments Refill Request 04/07/2014 Encounter Details Date Type Department Care Team (Late st Contact Info) Description 04/07/2014 MyC Refill [address], [address] [place] [address] [place] [address] [place] [address] Refill Request Social History Tobacco Use Types Packs/Day Years Used Date Smoking Tobacco: Former Cigarettes Q uit: 06/21/1973 Smokeless Tobacco: Former Alcohol Use Standard Drinks/Week Comments Yes 0 (1 standard drink = 0.6 oz pur e alcohol) rarely Comments No Sex and Gender Information Value Date Recorded Sex Assigned at Female 08/17/2018 7:56 AM ELECTRONIC EQUIPMENT REPAIRMEN Legal Sex Female 4:24 AM ELECTRONIC EQUIPMENT REPAIRMEN Gender Identity Female 08/17/2018 7:56 AM ELECTRONIC EQUIPMENT REPAIRMEN Sexual Orientation Straight 08/17/2018 7: 56 AM ELECTRONIC EQUIPMENT REPAIRMEN documented as of this encounter Miscellaneous Notes * Telephone Encounter - Fartun Mayes RN - 04/09/2014 9:20 AM CDT MyChart refill request for tramadol. Last OV 03/29/14. Last filled 03/05/14, qty 30. Unable to refillper SO protocol, to for auth. * Telephone Encounter - Fartun Mayes RN - 04/09/2014 9:17 AM [facility] Original authorizing provider: MD Alexandria Brannon would like a refill of the following medications: traMADol (ULTRAM) 50 MG tablet [Esperanza Gatica MD] Preferred pharmacy: [facility] #[id number] - [address] Comment: documented in this encounter Plan of Treatment Upcoming Encounters Date Type Department Care Team (Late st Contact Info) Description 09/07/2024 10:00 AM CDT Office Visit [address] [place] [phone] Fransisco Eddy MD [address] [place] [address] 146595 03/29/2025 3:40 PM CDT Office Visit [address] [phone] Alfreda Ray PA-C [address] [place] [address] [phone] documented as of this encounter Visit Diagnoses Diagnosis HTN (hypertension), benign Essential hypertension, benign documented in this encounter Additional Health Concerns Infection Onset Date Last Indicated Resolved Time Rule Out COVID-19 05/08/2021 05/08/2021 05/09/2021 9:08 PM ELECTRONIC EQUIPMENT REPAIRMEN documented as of this encounter Care Teams Mapping Pilot Relationship Specialty Start Date End Date Esperanza Gatica MD PCP - General Family Practice 10/13/11 12/29/21 [place] [address] [place] [address] PCP - Assigned PCP 12/05/17 08/23/18 Alfreda Ray PA-C [address] [place] [address] PCP - General Family Medicine 12/30/21 [place] [address] [place] [address] Assigned PCP 12/05/17 09/30/19 [place] [address] [place] [address] Assigned PCP 10/01/19 03/02/20 [place] [address] [place] [address] Assigned PCP 03/03/20 05/25/20 [place] [address] [place] [address] Assigned PCP 05/26/20 09/28/20 [place] [address] [place] [address] Assigned PCP 09/29/20 07/31/22 [place] [address] [address] [place] [address] Assigned Musculoskeletal Provider 10/20/20 04/17/22 Alfreda Ray PA-C [address] [place] [address] Referring Physician Family Medicine 12/31/21 Katrni Orellana PA-C [address] [place] [address] Physician Onsite Health Coach Dermatology 12/31/21 Shanna Vang PA-C [address] [place] [address]77 Assigned Cancer Care Provider 01/10/22 Fransisco Eddy MD [address] [place] [address] 925645 Assigned Rheumatology Provider 05/09/22 [place] [address] [place] [address] Assigned Pain Medication Provider 06/29/22 09/04/22 [place] [address] [place] [address] Assigned PCP 08/15/22 08/28/22 Katrin Orellana PA-C [address] [place] [address] Assigned Surgical Provider 08/15/22 02/10/24 Cristina Hsieh, [facility] [address] [place] [address] [place] [address] Pharmacist Pharmacist 09/07/22 Alfreda Ray PA-C [address] [place] [address] 52449 Assigned Pain Medication Provider 09/05/22 09/10/23 Alfreda Ray PA-C [address] [place] [address] 526952 Assigned PCP 08/29/22 Cristina Hsieh, [facility] [address] [place] [address] 565[address] Assigned MTM Pharmacist 09/26/22 Dakota Tatum MD [address] [place] [address] 954365 Cardiovascular Disease 03/25/23 Dakota Tatum MD [address] [place] [address] 512015 Assigned Heart and Vascular Provider 05/01/23 [place] [address] [address] Assigned Musculoskeletal Provider 04/12/24 documented as of this encounter
--- OUTSIDE RECORDS SUMMARY | 2024-06-23 00:27 | XMS_ITS | Encounter Summary ---
Author Organization [place] Address [address] [place] [address] Care Team Providers Care Adventure Guide Name Role Phone Esperanza Gatica MD Primary Care Provider + Esperanza Gatica MD Unavailable +288 Esperanza Gatica MD Unavailable +[phone] Esperanza Gatica MD Unavailable +518 Esperanza Gatica MD Unavailable +288 Esperanza Gatica MD Unavailable +296 Esperanza Gatica MD Unavailable +[phone] Jesús Orourke MD Unavailable Alfreda RayC Primary Care Provider + Alfreda Ray PA-C Unavailable + [phone] Katrin Orellana PA-C Unavailable +[phone] Shanna VangC Unavailable +[phone] Fransisco Eddy MD Unavailable +[phone] Esperanza Gatica MD Unavailable +[phone] Esperanza Gatica MD Unavailable +[phone] Katrin Orellana PA-C Unavailable Cristina Hsieh [facility] Unavailable Cory Alfreda Liu PA-C Unavailable +[phone] Ho Raymustapha Liu PA-C Unavailable +[phone] Cristina Hsieh [facility] Unavailable +[phone] Dakota Tatum MD Unavailable Dakota Tatum MD Unavailable [phone] Srinivas Marie DO Unavailable [phone] Reason for Visit * Reason Onset Date Comments Refill Request 11/08/2013 Tramadol 50mg Encounter Details Date Type Department Care Team (Late st Contact Info) Description 11/08/2013 MyC Refill [address], [facility] [address] [place] [address] [place] [address] [place] [address] Refill Request (Tramadol 50mg) Social History Tobacco Use Types Packs/Day Years Used Date Smoking Tobacco: Former Cigarettes Q uit: 06/21/1973 Smokeless Tobacco: Former Alcohol Use Standard Drinks/Week Comments Yes 0 (1 standard drink = 0.6 oz pur e alcohol) rarely Comments No Sex and Gender Information Value Date Recorded Sex Assigned at Female 08/17/2018 7:56 AM CREDIT REVIEW OFFICER Legal Sex Female 4:24 AM CREDIT REVIEW OFFICER Gender Identity Female 08/17/2018 7:56 AM CREDIT REVIEW OFFICER Sexual Orientation Straight 08/17/2018 7: 56 AM CREDIT REVIEW OFFICER documented as of this encounter Miscellaneous [...] Preferred pharmacy: [facility][id number] - [address] Comment: documented in this encounter Plan of Treatment Upcoming Encounters Date Type Department Care Team (Late st Contact Info) Description 09/07/2024 10:00 AM CDT Office Visit [facility] Specialty [address] [place] [phone] Fransisco Eddy MD [address] [place] [address] 935125 03/29/2025 3:40 PM CDT Office Visit [address] [phone] Alfreda Ray PA-C [address] [place] [address] [phone] documented as of this encounter Visit Diagnoses Diagnosis HTN (hypertension), benign Essential hypertension, benign documented in this encounter Additional Health Concerns Infection Onset Date Last Indicated Resolved Time Rule Out COVID-19 05/08/2021 05/08/2021 05/09/2021 9:08 PM CREDIT REVIEW OFFICER documented as of this encounter Care Teams Adventure Guide Relationship Specialty Start Date End Date Esperanza Gatica MD PCP - General Family Practice 10/13/11 12/29/21 [place] [address] [place] [address] PCP - Assigned PCP 12/05/17 08/23/18 Alfreda Ray PA-C [address] [place] [address] PCP - General Family Medicine 12/30/21 [place] [address] [place] [address] Assigned PCP 12/05/17 09/30/19 [place] [address] [place] [address] Assigned PCP 10/01/19 03/02/20 [place] [address] [place] [address] Assigned PCP 03/03/20 05/25/20 [place] [address] [place] [address] Assigned PCP 05/26/20 09/28/20 [place] [address] [place] [address] Assigned PCP 09/29/20 07/31/22 [place] [address] [facility] [place] [address] Assigned Musculoskeletal Provider 10/20/20 04/17/22 Alfreda Ray PA-C [facility] [place] [address] Referring Physician Family Medicine 12/31/21 Katrin Orellana PA-C [address] [place] [address] 442115 Physician Radiology Assistant Dermatology 12/31/21 Shanna Vang PA-C [address] [place] [address] [phone] Assigned Cancer Care Provider 01/10/22 Fransisco Eddy MD [address] [place] [address] [phone] Assigned Rheumatology Provider 05/09/22 [place] [address] [place] [address] Assigned Pain Medication Provider 06/29/22 09/04/22 [place] [address] [address] [address] Assigned PCP 08/15/22 08/28/22 Katrin Orellana PA-C [address] [place] [address] 934645 Assigned Surgical Provider 08/15/22 02/10/24 Cristina Hsieh [facility] [address] [facility] [place] HERNANDEZ [address] Pharmacist Pharmacist 09/07/22 Alfreda Ray PA-C [address] [place] [address] 023192 Assigned Pain Medication Provider 09/05/22 09/10/23 Alfreda Ray PA-C [address] [place] [address] 004842 Assigned PCP 08/29/22 Cristina Hsieh [facility] [address] [place] [address] Assigned MTM Pharmacist 09/26/22 Dakota Tatum MD [address] [place] [address] 291815 Cardiovascular Disease 03/25/23 Dakota Tatum MD [address] [place] [address] 535035 Assigned Heart and Vascular Provider 05/01/23 [place] [address] [address], [address] [address] Assigned Musculoskeletal Provider 04/12/24 documented as of this encounter
--- OUTSIDE RECORDS SUMMARY | 2024-06-23 00:27 | XMS_ITS | Encounter Summary ---
Author Organization [facility] Address [address] [place] [address] Care Team Providers Care Mold Carrier Name Role Phone Esperanza Gatica MD Primary Care Provider + Esperanza Gatica MD Unavailable +[phone] Esperanza Gatica MD Unavailable +[phone] Esperanza Gatica MD Unavailable +[phone] Esperanza Gatica MD Unavailable +[phone] Esperanza Gatica MD Unavailable +[phone] Esperanza Gatica MD Unavailable +[phone] Jesús Orourke MD Unavailable Alfreda RayC Primary Care Provider + Alfreda Ray PA-C Unavailable + [phone] Katrin Orellana PA-C Unavailable +[phone] Shanna VangC Unavailable +[phone] Fransisco Eddy MD Unavailable +[phone] Esperanza Gatica MD Unavailable +[phone] Esperanza Gatica MD Unavailable +[phone] Katrin Orellana PA-C Unavailable Cristina Hsieh [facility] Unavailable +[phone] Cory Alfreda Liu PA-C Unavailable +[phone] Ho Raymustapha Liu PA-C Unavailable +[phone] Cristina Hsieh [facility] Unavailable +[phone] Dakota Tatum MD Unavailable [phone] Dakota Tatum MD Unavailable +[phone] Srinivas Marie DO Unavailable +[phone] Reason for Visit * Reason Onset Date Comments Medication Question 05/09/2014 Ambien and H ydrocodone Encounter Details Date Type Department Care Team (Late st Contact Info) Description 05/09/2014 MyC Medical Advice [address], [address] [place] [address] [place] [address] [place] [address] Medication Question (Ambien and Hydrocodone) Social History Tobacco Use Types Packs/Day Years Used Date Smoking Tobacco: Former Cigarettes Q uit: 06/21/1973 Smokeless Tobacco: Former Alcohol Use Standard Drinks/Week Comments Yes 0 (1 standard drink = 0.6 oz pur e alcohol) rarely Comments No Sex and Gender Information Value Date Recorded Sex Assigned at Female 08/17/2018 7:56 AM CENA Legal Sex Female 4:24 AM CENA Gender Identity Female 08/17/2018 7:56 AM CENA Sexual Orientation Straight 08/17/2018 7: 56 AM CENA documented as of this encounter Miscellaneous Notes * Telephone Encounter - Leigha Rinaldi RN - 06/11/2014 11:53 AM CST RX faxed. Leigha Rinaldi RN * Telephone Encounter - Royer Brumfield MD - 06/11/2014 11:26 AM CENA OK, I switched her to 5mg tabs so insurance shouldn't mess with the quantity any more. She should take one full tab when needed. Note that med is NOT intended for nightly use; provided quantity is for one month. Royer Brumfield MD * Telephone Encounter - Leigha Rinaldi RN - 06/11/2014 10:48 AM CST Spoke with patient. She only got quantity #15 dispensed on 05/14/2014 so rx only lasted 1 month. (insurance probably dispensed it that way) Patient will run out of med. Please consider refill. Leigha Rinaldi RN * Telephone Encounter - Royer Brumfield MD - 06/11/2014 9:01 AM CENA Ambien filled 05/07/14 was marked as a two month refill. Royer Brumfield MD * Telephone Encounter - Leigha Rinaldi RN [...] AMBIEN 03/12/2014 #90 HYDROCODONE Leigha Rinaldi RN documented in this encounter Plan of Treatment Upcoming Encounters Date Type Department Care Team (Late st Contact Info) Description 09/07/2024 10:00 AM CDT Office Visit [address] [address] Fransisco Eddy MD [address] [place] [address] 03/29/2025 3:40 PM CDT Office Visit [address] [address] Alfreda Ray PA-C [address] [place] [address] documented as of this encounter Visit Diagnoses Diagnosis Osteoarthritis- Primary Osteoarthrosis, unspecified whether generalized or localized, unspecified site INSOMNIA NEC Insomnia, unspecified documented in this encounter Additional Health Concerns Infection Onset Date Last Indicated Resolved Time Rule Out COVID-19 05/08/2021 05/08/2021 05/09/2021 9:08 PM CENA documented as of this encounter Care Teams Mold Carrier Relationship Specialty Start Date End Date Esperanza Gatica MD PCP - General Family Practice 10/13/11 12/29/21 [place] [address] [place] [address] PCP - Assigned PCP 12/05/17 08/23/18 Alfreda Ray PA-C [address] [place] [address] PCP - General Family Medicine 12/30/21 [place] [address] [place] [address] Assigned PCP 12/05/17 09/30/19 [place] [address] [place] [address] Assigned PCP 10/01/19 03/02/20 [place] [address] [place] [address] Assigned PCP 03/03/20 05/25/20 [place] [address] [place] [address] Assigned PCP 05/26/20 09/28/20 [place] [address] [place] [address] Assigned PCP 09/29/20 07/31/22 Jesú[place] [address] [place] [address] [place] [address] Assigned Musculoskeletal Provider 10/20/20 04/17/22 Alfreda Ray PA-C [address] [place] [address] 436502 Referring Physician Family Medicine 12/31/21 Katrin Orellana PA-C [address] [place] [address] [address] [place], [place] 9[address]45 Physician Spanish Lecturer Dermatology 12/31/21 Shanna Vang PA-C [address] [place] [address] Assigned Cancer Care Provider 01/10/22 Fransisco Eddy MD [address] [place] [address] Assigned Rheumatology Provider 05/09/22 [place] [address] [address] [place] [address] Assigned Pain Medication Provider 06/29/22 09/04/22 [place] [address] [address] [place] [address] Assigned PCP 08/15/22 08/28/22 Katrin Orellana PA-C [address] [place] [address] Assigned Surgical Provider 08/15/22 02/10/24 Cristina Hsieh [facility] [address] [place] [address] Pharmacist Pharmacist 09/07/22 Alfreda Ray PA-C [address] [place] [address] 969712 Assigned Pain Medication Provider 09/05/22 09/10/23 Alfreda Ray PA-C [address] [place] [address] Assigned PCP 08/29/22 Cristina Hsieh [facility] [address] [address] Assigned MTM Pharmacist 09/26/22 Dakota Tatum MD [address] [place] [address] Cardiovascular Disease 03/25/23 Dakota Tatum MD [address] [place] [address] Assigned Heart and Vascular Provider 05/01/23 [place] [address] [address], [address] [address] Assigned Musculoskeletal Provider 04/12/24 documented as of this encounter
--- OUTSIDE RECORDS SUMMARY | 2024-06-23 00:27 | XMS_ITS | Encounter Summary ---
Author Organization [facility] Address [address] [place] [address] Care Team Providers Care Wheel Alignment Technician Name Role Phone Esperanza Gatica MD Primary Care Provider + Esperanza Gatica MD Unavailable +[phone] Esperanza Gatica MD Unavailable +[phone] Esperanza Gatica MD Unavailable +[phone] Esperanza Gatica MD Unavailable +[phone] Esperanza Gatica MD Unavailable +[phone] Esperanza Gatica MD Unavailable +[phone] Jesús Orourke MD Unavailable Alfreda RayC Primary Care Provider + Alfreda Ray PA-C Unavailable + [phone] Katrin Orellana PA-C Unavailable +[phone] Shanna VangC Unavailable +[phone] Fransisco Eddy MD Unavailable [phone] Esperanza Gatica MD Unavailable +[phone] Esperanza Gatica MD Unavailable +[phone] Katrin Orellana PA-C Unavailable Cristina Hsieh [facility] Unavailable Cory Alfreda Lui PA-C Unavailable Alfreda Ray Alexa KING Unavailable [phone] Cristina Hsieh [facility] Unavailable Dakota Tatum MD Unavailable Dakota Tatum MD Unavailable Srinivas Marie DO Unavailable [phone] Reason for Visit * Reason Onset Date Comments Refill Request 03/03/2014 Encounter Details Date Type Department Care Team (Late st Contact Info) Description 03/03/2014 MyC Refill [address], [address] [place] [address] [place] [address] [place] [address] Refill Request Social History Tobacco Use Types Packs/Day Years Used Date Smoking Tobacco: Former Cigarettes Q uit: 06/21/1973 Smokeless Tobacco: Former Alcohol Use Standard Drinks/Week Comments Yes 0 (1 standard drink = 0.6 oz pur e alcohol) rarely Comments No Sex and Gender Information Value Date Recorded Sex Assigned at Female 08/17/2018 7:56 AM METAL SPRAY OPERATOR Legal Sex Female 4:24 AM METAL SPRAY OPERATOR Gender Identity Female 08/17/2018 7:56 AM METAL SPRAY OPERATOR Sexual Orientation Straight 08/17/2018 7: 56 AM METAL SPRAY OPERATOR documented as of this encounter Plan of Treatment Upcoming Encounters Date Type Department Care Team (Late st Contact Info) Description 09/07/2024 10:00 AM CDT Office Visit [facility] [address] [address] Fransisco Eddy MD [address] [place] [address] 03/29/2025 3:40 PM CDT Office Visit [facility] [address] [place] [phone] Alfreda Ray PA-C [address] [place] [address] 252692 documented as of this encounter Visit Diagnoses Not on filedocumented in this encounter Additional Health Concerns Infection Onset Date Last Indicated Resolved Time Rule Out COVID-19 05/08/2021 05/08/2021 05/09/2021 9:08 PM METAL SPRAY OPERATOR documented as of this encounter Care Teams Wheel Alignment Technician Relationship Specialty Start Date End Date Esperanza Gatica MD PCP - General Family Practice 10/13/11 12/29/21 [place] [address] [address] [address] PCP - Assigned PCP 12/05/17 08/23/18 Alfreda Ray PA-C [address] [place] [address] 185502 PCP - General Family Medicine 12/30/21 [place] [address] [address] [address] Assigned PCP 12/05/17 09/30/19 [place] [address] [address] [address] Assigned PCP 10/01/19 03/02/20 [place] [address] [address] [address] Assigned PCP 03/03/20 05/25/20 [place] [address] [address] [address] Assigned PCP 05/26/20 09/28/20 [place] [address] [address] [address] Assigned PCP 09/29/20 07/31/22 [place] [address] [place] [address] [address] Assigned Musculoskeletal Provider 10/20/20 04/17/22 Alfreda Ray PA-C [address] [place] [address] Referring Physician Family Medicine 12/31/21 Katrin Orellana PA-C [address] [place] [address] Physician Senior Engineering Associate Dermatology 12/31/21 Shanna Vang PA-C [facility] [address] [address] Assigned Cancer Care Provider 01/10/22 Fransisco Eddy MD [address] [place] [address] 868875 Assigned Rheumatology Provider 05/09/22 [place] [address] [address] [address] Assigned Pain Medication Provider 06/29/22 09/04/22 [place] [address] [place] [address] Assigned PCP 08/15/22 08/28/22 Katrin Orellana PA-C [address] [place] [address] Assigned Surgical Provider 08/15/22 02/10/24 Cristina Hsieh [facility] [address] [place] [address] [place] HERNANDEZ [address] Pharmacist Pharmacist 09/07/22 Alfreda Ray PA-C [address] [place] [address] Assigned Pain Medication Provider 09/05/22 09/10/23 Alfreda Ray PA-C [address] [place] [address] Assigned PCP 08/29/22 Cristina Hsieh [facility] [address] [place] [address] Assigned MTM Pharmacist 09/26/22 Dakota Tatum MD [address] [place] [address] 215415 Cardiovascular Disease 03/25/23 Dakota Tatum MD [address] [place] [address] 458895 Assigned Heart and Vascular Provider 05/01/23 [place] [address] [address], [address] [address] Assigned Musculoskeletal Provider 04/12/24 documented as of this encounter
--- OUTSIDE RECORDS SUMMARY | 2024-06-23 00:27 | XMS_ITS | Encounter Summary ---
Author Organization [facility] Address [address] [place] [address] Care Team Providers Care Metal Machine Operator Name Role Phone Esperanza Gatica MD Primary Care Provider + Esperanza Gatica MD Unavailable +[phone] Esperanza Gatica MD Unavailable +[phone] Esperanza Gatica MD Unavailable +171 Esperanza Gatica MD Unavailable +[phone] Esperanza Gatica MD Unavailable +[phone] Esperanza Gatica MD Unavailable +[phone] Jesús Orourke MD Unavailable Alfreda RayC Primary Care Provider + Alfreda Ray PA-C Unavailable + [phone] Katrin Orellana PA-C Unavailable +[phone] Shanna VangC Unavailable +[phone] Fransisco Eddy MD Unavailable +[phone] Esperanza Gatica MD Unavailable +[phone] Esperanza Gatica MD Unavailable +[phone] Katrin Orellana PA-C Unavailable +[phone] Cristina Hsieh [facility] Unavailable Cory Alfreda Liu PA-C Unavailable +[phone] Ho Raymustapha Liu PA-C Unavailable +[phone] Cristina Hsieh [facility] Unavailable [phone] Dakota Tatum MD Unavailable +[phone] Dakota Tatum MD Unavailable [phone] Srinivas Marie DO Unavailable [phone] Reason for Visit * Reason Onset Date Comments Refill Request 06/03/2014 Tramadol 50mg Encounter Details Date Type Department Care Team (Late st Contact Info) Description 06/03/2014 MyC Refill [address], [facility] [address] [place] [address] [place] [address] [place] [address] Refill Request (Tramadol 50mg) Social History Tobacco Use Types Packs/Day Years Used Date Smoking Tobacco: Former Cigarettes Q uit: 06/21/1973 Smokeless Tobacco: Former Alcohol Use Standard Drinks/Week Comments Yes 0 (1 standard drink = 0.6 oz pur e alcohol) rarely Comments No Sex and Gender Information Value Date Recorded Sex Assigned at Female 08/17/2018 7:56 AM SHEARER PRINTED CIRCUIT BOARDS Legal Sex Female 4:24 AM SHEARER PRINTED CIRCUIT BOARDS Gender Identity Female 08/17/2018 7:56 AM SHEARER PRINTED CIRCUIT BOARDS Sexual Orientation Straight 08/17/2018 7: 56 AM SHEARER PRINTED CIRCUIT BOARDS documented as of this encounter Miscellaneous Notes * Telephone Encounter - Leigha Rinaldi RN - 06/04/2014 1:43 PM CST Pending Prescriptions: Disp Refills traMADol (ULTRAM) 50 MG tablet 30 tab*0 Sig: Take 1 tablet (50 mg) by mouth every 6 hours as needed for pain Last OV: 03/29/2014 Reason: IBS Last filled: 05/07/2014 #30 Leigha Rinaldi RN RER PRINTED CIRCUIT BOARDS * Telephone Encounter - Leigha Rinaldi RN - 06/04/2014 1:43 PM CSTMessage from [place]: Original authorizing provider: MD Alexandria Brannon would like a refill of the following medications: traMADol (ULTRAM) 50 MG tablet [Esperanza Gatica MD] [facility] pharmacy: [id number] Comment: RER PRINTED CIRCUIT BOARDS documented in this encounter Plan of Treatment Upcoming Encounters Date Type Department Care Team (Late st Contact Info) Description 09/07/2024 10:00 AM CDT Office Visit [address] [place] [phone] Fransisco Eddy MD [address] [place] [address] 737475 03/29/2025 3:40 PM CDT Office Visit [address] [phone] Alfreda Ray PA-C [address] [place] [address] [phone] documented as of this encounter Visit Diagnoses Diagnosis HTN (hypertension), benign Essential hypertension, benign documented in this encounter Additional Health Concerns Infection Onset Date Last Indicated Resolved Time Rule Out COVID-19 05/08/2021 05/08/2021 05/09/2021 9:08 PM SHEARER PRINTED CIRCUIT BOARDS documented as of this encounter Care Teams Metal Machine Operator Relationship Specialty Start Date End Date Esperanza Gatica MD PCP - General Family Practice 10/13/11 12/29/21 [place] [address] [place] [address] PCP - Assigned PCP 12/05/17 08/23/18 Alfreda Ray PA-C [address] [place] [address] PCP - General Family Medicine 12/30/21 [place] [address] [place] [address] Assigned PCP 12/05/17 09/30/19 [place] [address] [place] [address] Assigned PCP 10/01/19 03/02/20 [place] [address] [place] [address] Assigned PCP 03/03/20 05/25/20 [place] [address] [place] [address] Assigned PCP 05/26/20 09/28/20 [place] [address] [place] [address] Assigned PCP 09/29/20 07/31/22 [place] [address] [place] [address] Assigned Musculoskeletal Provider 10/20/20 04/17/22 Alfreda Ray PA-C [address] [place] [address] Referring Physician Family Medicine 12/31/21 Katrin Orellana PA-C [address] [place] [address] Physician Criminal Intelligence Analyst Dermatology 12/31/21 Shanna Vang PA-C [address] [address] Assigned Cancer Care Provider 01/10/22 Fransisco Eddy MD [address] [place] [address] Assigned Rheumatology Provider 05/09/22 [place] [address] [place] [address] Assigned Pain Medication Provider 06/29/22 09/04/22 [place] [address] [place] [address] Assigned PCP 08/15/22 08/28/22 Katrin Orellana PA-C [address] [place] [address] Assigned Surgical Provider 08/15/22 02/10/24 Cristina Hsieh [facility] [address] [facility] [place] HERNANDEZ [address] Pharmacist Pharmacist 09/07/22 Alfreda Ray PA-C [address] [place] [address] Assigned Pain Medication Provider 09/05/22 09/10/23 Alfreda Ray PA-C [address] [place] [address] Assigned PCP 08/29/22 Cristina Hsieh, [facility] [address] [place] [address] Assigned MTM Pharmacist 09/26/22 Dakota Tatum MD [address] [place] [address] Cardiovascular Disease 03/25/23 Dakota Tatum MD [address] [place] [address] Assigned Heart and Vascular Provider 05/01/23 [place] [address] [facility], [address] [address] Assigned Musculoskeletal Provider 04/12/24 documented as of this encounter
--- OUTSIDE RECORDS SUMMARY | 2024-06-23 00:27 | XMS_ITS | Encounter Summary ---
Author Organization [facility] Address [address] [place] [address] Care Team Providers Care Liquor Store Manager Name Role Phone Esperanza Gatica MD Primary Care Provider + Esperanza Gatica MD Unavailable +[phone] Esperanza Gatica MD Unavailable +[phone] Esperanza Gatica MD Unavailable +[phone] Esperanza Gatica MD Unavailable +138 Esperanza Gatica MD Unavailable +515 Esperanza Gatica MD Unavailable +[phone] Jesús Orourke MD Unavailable Alfreda RayC Primary Care Provider + Alfreda Ray PA-C Unavailable + [phone] Katrin Orellana PA-C Unavailable +[phone] Shanna VangC Unavailable +[phone] Fransisco Eddy MD Unavailable [phone] Esperanza Gatica MD Unavailable +[phone] Esperanza Gatica MD Unavailable +[phone] Katrin Orellana PA-C Unavailable Cristina Hsieh [facility] Unavailable Cory Alfreda Liu PA-C Unavailable [phone] Alfreda Ray Alexa KING Unavailable [phone] Cristina Hsieh [facility] Unavailable Dakota Tatum MD Unavailable Dakota Tatum MD Unavailable Srinivas Marie DO Unavailable [phone] Reason for Visit * Reason Onset Date Comments Refill Request 08/30/2013 Multiple meds Encounter Details Date Type Department Care Team (Late st Contact Info) Description 08/30/2013 MyC Medical Advice [place] [id number] [facility] [address] [place] [address] [place] [address] [place] [address] Refill Request (Multiple meds) Social History Tobacco Use Types Packs/Day Years Used Date Smoking Tobacco: Former Cigarettes Q uit: 06/21/1973 Smokeless Tobacco: Former Alcohol Use Standard Drinks/Week Comments Yes 0 (1 standard drink = 0.6 oz pur e alcohol) rarely Comments No Sex and Gender Information Value Date Recorded Sex Assigned at Female 08/17/2018 7:56 AM MACHINE LOADER Legal Sex Female 4:24 AM MACHINE LOADER Gender Identity Female 08/17/2018 7:56 AM MACHINE LOADER Sexual Orientation Straight 08/17/2018 7: 56 AM MACHINE LOADER documented as of this encounter Plan of Treatment Upcoming Encounters Date Type Department Care Team (Late st Contact Info) Description 09/07/2024 10:00 AM CDT Office Visit [address] [place] [address] Fransisco Eddy MD [address] [place] [address] 03/29/2025 3:40 PM CDT Office Visit [address] [phone] Alfreda Ray PA-C [address] [place] [address] documented as of this encounter Visit Diagnoses Diagnosis HTN (hypertension), benign- Primary Essential hypertension, benign Insomnia, unspecified Hyperlipidemia LDL goal <160 Other and unspecified hyperlipidemia documented in this encounter Additional Health Concerns Infection Onset Date Last Indicated Resolved Time Rule Out COVID-19 05/08/2021 05/08/2021 05/09/2021 9:08 PM MACHINE LOADER documented as of this encounter Care Teams Liquor Store Manager Relationship Specialty Start Date End Date Esperanza Gatica MD PCP - General Family Practice 10/13/11 12/29/21 [place] [address] [address] [address] PCP - Assigned PCP 12/05/17 08/23/18 Alfreda Ray PA-C [address] [place] [address] 168752 PCP - General Family Medicine 12/30/21 [place] [address] [address] [address] Assigned PCP 12/05/17 09/30/19 [place] [address] [address] [address] Assigned PCP 10/01/19 03/02/20 [place] [address] [place] [address] Assigned PCP 03/03/20 05/25/20 [place] [address] [place] [address] Assigned PCP 05/26/20 09/28/20 [place] [address] [place] [address] Assigned PCP 09/29/20 07/31/22 Jesú[place] [address] [place] [address] Assigned Musculoskeletal Provider 10/20/20 04/17/22 Alfreda Ray PA-C [address] [place] [address] 114822 Referring Physician Family Medicine 12/31/21 Katrin Orellana PA-C [address] [place] [address] 98 [place], [place] 673575 Physician Clinical Transformation Specialist Dermatology 12/31/21 Shanna Vang PA-C [address] [place] [address] 523904 Assigned Cancer Care Provider 01/10/22 Fransisco Eddy MD [address] [place] [address] 795865 Assigned Rheumatology Provider 05/09/22 [place] [address] [place] [address] Assigned Pain Medication Provider 06/29/22 09/04/22 [place] [address] [place] [address] Assigned PCP 08/15/22 08/28/22 Katrin Orellana PA-C [address] [place] [address] 98 [place], [place] 002845 Assigned Surgical Provider 08/15/22 02/10/24 Cristina Hsieh [facility] [address] [facility] L[place] HERNANDEZ [address] Pharmacist Pharmacist 09/07/22 Alfreda Ray PA-C [address] [place] [address] 519522 Assigned Pain Medication Provider 09/05/22 09/10/23 Alfreda Ray PA-C [address] [place] [address] Assigned PCP 08/29/22 Cristina Hsieh [facility] [address] [phone] Assigned MTM Pharmacist 09/26/22 Dakota Tatum MD [address] [place] [address] Cardiovascular Disease 03/25/23 Dakota Tatum MD [address] [place], [place] 705335 Assigned Heart and Vascular Provider 05/01/23 [place] [address] [address], [address] [address] Assigned Musculoskeletal Provider 04/12/24 documented as of this encounter
--- OUTSIDE RECORDS SUMMARY | 2024-06-23 00:27 | XMS_ITS | Encounter Summary ---
Author Organization [facility] Address [address] [place] [address] 28272 Care Team Providers Care Water Pump Servicer Name Role Phone Esperanza Gatica MD Primary Care Provider + Esperanza Gatica MD Unavailable +[phone] Esperanza Gatica MD Unavailable +355 Esperanza Gatica MD Unavailable +545 Esperanza Gatica MD Unavailable +453 Esperanza Gatica MD Unavailable +245 Esperanza Gatica MD Unavailable +[phone] Jesús Orourke MD Unavailable Alfreda RayC Primary Care Provider + Alfreda Ray PA-C Unavailable + [phone] Katrin Orellana PA-C Unavailable +[phone] Shanna VangC Unavailable +[phone] Fransisco Eddy MD Unavailable +[phone] Esperanza Gatica MD Unavailable +[phone] Esperanza Gatica MD Unavailable +[phone] Katrin Orellana PA-C Unavailable Cristina Hsieh [facility] Unavailable Ho Raymustapha Liu PA-C Unavailable +[phone] Alfreda Ray Alexa KING Unavailable +[phone] Cristina Hsieh [facility] Unavailable +[phone] Dakota Tatum MD Unavailable [phone] Dakota Tatum MD Unavailable [phone] Srinivas Marie DO Unavailable [phone] Reason for Visit * Reason Onset Date Comments Refill Request 01/07/2014 tramadol Encounter Details Date Type Department Care Team (Late st Contact Info) Description 01/07/2014 MyC Refill [address], [address] [place] [address] [place] [address] [place] [address] Refill Request (tramadol) Social History Tobacco Use Types Packs/Day Years Used Date Smoking Tobacco: Former Cigarettes Q uit: 06/21/1973 Smokeless Tobacco: Former Alcohol Use Standard Drinks/Week Comments Yes 0 (1 standard drink = 0.6 oz pur e alcohol) rarely Comments No Sex and Gender Information Value Date Recorded Sex Assigned at Female 08/17/2018 7:56 AM TELEGRAPH INSPECTOR Legal Sex Female 4:24 AM TELEGRAPH INSPECTOR Gender Identity Female 08/17/2018 7:56 AM TELEGRAPH INSPECTOR Sexual Orientation Straight 08/17/2018 7: 56 AM TELEGRAPH INSPECTOR documented as of this encounter Miscellaneous Notes * Telephone Encounter - Diane Macedo RN - 01/08/2014 8:09 AM CDT Does not meet standard requirement for RN refill protocol. Medication: tramadol Last OV: 10/24/13 Provider: MD ZAIDA Reason for visit: SI joint dysfunction, etc... Last refill: 12/11/13 #30 Please refill if appropriate. Thank you! Diane Macedo RN [facility] * Telephone Encounter - Diane Macedo RN - 01/08/2014 8:08 AM CDT Message from [facility]: Original authorizing provider: MD Sadia Brannonyovana Fregoso Cococecy would like a refill of the following medications: traMADol (ULTRAM) 50 MG tablet [Esperanza Gatica MD] Preferred pharmacy: [id number] Comment: Medication renewals requested in this message routed to other providers: zolpidem (AMBIEN) 10 MG tablet [Royer Brumfield MD] documented in this encounter Plan of Treatment Upcoming Encounters Date Type Department Care Team (Late st Contact Info) Description 09/07/2024 10:00 AM CDT Office Visit [address] [phone] Fransisco Eddy MD [address] [place] [address] 064555 03/29/2025 3:40 PM CDT Office Visit [address] [phone] Alfreda Ray PA-C [address] [place] [address] 318122 documented as of this encounter Visit Diagnoses Diagnosis HTN (hypertension), benign Essential hypertension, benign documented in this encounter Additional Health Concerns Infection Onset Date Last Indicated Resolved Time Rule Out COVID-19 05/08/2021 05/08/2021 05/09/2021 9:08 PM TELEGRAPH INSPECTOR documented as of this encounter Care Teams Water Pump Servicer Relationship Specialty Start Date End Date Esperanza Gatica MD PCP - General Family Practice 10/13/11 12/29/21 [place] [address] [place], [place]ISBETH [address] PCP - Assigned PCP 12/05/17 08/23/18 Alfreda Ray PA-C [address] [place] [address] PCP - General Family Medicine 12/30/21 [place] [address] [place], LISBETH [address] Assigned PCP 12/05/17 09/30/19 [place] [address] [place], LISBETH [address] Assigned PCP 10/01/19 03/02/20 [place] [address] LISB[place] GARCIA 48[address] Assigned PCP 03/03/20 05/25/20 [place] [address] L[place] GARCIA 485[address] Assigned PCP 05/26/20 09/28/20 [place] [address] L[place] GARCIA 50763 Assigned PCP 09/29/20 07/31/22 [place] [address] [address] [place] GALAN [address] Assigned Musculoskeletal Provider 10/20/20 04/17/22 Alfreda Ray PA-C [address] [place] [address] 00444 Referring Physician Family Medicine 12/31/21 Katrin Orellana PA-C [address] [place] [address] 43331 Physician Pharmacy Ancillary Dermatology 12/31/21 Shanna Vang PA-C [address] [place] [address] 385594 Assigned Cancer Care Provider 01/10/22 Fransisco Eddy MD [address] [place] [address] 557425 Assigned Rheumatology Provider 05/09/22 [place] [address] [facility] [place] [place] 8[address] Assigned Pain Medication Provider 06/29/22 09/04/22 [place] [address] [place] [address] Assigned PCP 08/15/22 08/28/22 Katrin Orellana PA-C [address] [place] [address] [phone] Assigned Surgical Provider 08/15/22 02/10/24 Cristina Hsieh [facility] [address] [facility] LISBETH HERNANDEZ [address] Pharmacist Pharmacist 09/07/22 Alfreda Ray PA-C [address] [place] [address] 40596 Assigned Pain Medication Provider 09/05/22 09/10/23 Alfreda Ray PA-C [address] [place] [address] 99953 Assigned PCP 08/29/22 Cristina Hsieh, [facility] [address] [place] [address] 23689 Assigned MTM Pharmacist 09/26/22 Dakota Tatum MD [address] [place] [address] 73573 Cardiovascular Disease 03/25/23 Dakota Tatum MD [address] [place] [address] 34161 Assigned Heart and Vascular Provider 05/01/23 [place] [address] [address] GAST[address]UM, [address] [address] Assigned Musculoskeletal Provider 04/12/24 documented as of this encounter
--- OUTSIDE RECORDS SUMMARY | 2024-06-23 00:27 | XMS_ITS | Encounter Summary ---
Author Organization [facility] Address [address] [place] [address] 20121 Care Team Providers Care Manager Linux Name Role Phone Esperanza Gatica MD Primary Care Provider + Esperanza Gatica MD Unavailable +[phone] Esperanza Gatica MD Unavailable +107 Esperanza Gatica MD Unavailable +[phone] Esperanza Gatica MD Unavailable +068 Esperanza Gatica MD Unavailable +610 Esperanza Gatica MD Unavailable +[phone] Jesús Orourke MD Unavailable Alfreda RayC Primary Care Provider + Alfreda Ray PA-C Unavailable + [phone] Katrin Orellana PA-C Unavailable +[phone] Shanna VangC Unavailable +[phone] Fransisco Eddy MD Unavailable +[phone] Esperanza Gatica MD Unavailable +[phone] Esperanza Gatica MD Unavailable +[phone] Katrin Orellana PA-C Unavailable [phone] Cristina Hsieh [facility] Unavailable RayAlfreda PA-C Unavailable +[phone] Cory Alfreda Liu PA-C Unavailable +[phone] Cristina Hsieh [facility] Unavailable [phone] Dakota Tatum MD Unavailable Dakota Tatum MD Unavailable [phone] Srinivas Marie DO Unavailable [phone] Reason for Visit * Reason Onset Date Comments Refill Request 09/23/2013 Lisinopril-HCTZ Encounter Details Date Type Department Care Team (Late st Contact Info) Description 09/23/2013 MyC Kieran [address], [address] [place] [address] [place] [address] [place] [address] Refill Request (Lisinopril-HCTZ) Social History Tobacco Use Types Packs/Day Years Used Date Smoking Tobacco: Former Cigarettes Q uit: 06/21/1973 Smokeless Tobacco: Former Alcohol Use Standard Drinks/Week Comments Yes 0 (1 standard drink = 0.6 oz pur e alcohol) rarely Comments No Sex and Gender Information Value Date Recorded Sex Assigned at Female 08/17/2018 7:56 AM TECHNICAL WRITER Legal Sex Female 4:24 AM TECHNICAL WRITER Gender Identity Female 08/17/2018 7:56 AM TECHNICAL WRITER Sexual Orientation Straight 08/17/2018 7: 56 AM TECHNICAL WRITER documented as of this encounter Miscellaneous Notes [...] RN - 09/25/2013 7:51 AM CD[facility] Original authorizing provider: MD Alexandria Triplett would like a refill of the following medications: lisinopril-hydrochlorothiazide (PRINZIDE,ZESTORETIC) 10-12.5 MG per tablet [Royer Brumfield MD] Preferred pharmacy: [id number] Comment: Sent from my iPad documented in this encounter Plan of Treatment Upcoming Encounters Date Type Department Care Team (Late st Contact Info) Description 09/07/2024 10:00 AM CDT Office Visit [facility] [address] [phone] Fransisco Eddy MD [address] [place] [address] 363685 03/29/2025 3:40 PM CDT Office Visit [address] [phone] Alfreda Ray PA-C [address] [place] [address] 325172 documented as of this encounter Visit Diagnoses Diagnosis HTN (hypertension), benign- Primary Essential hypertension, benign documented in this encounter Additional Health Concerns Infection Onset Date Last Indicated Resolved Time Rule Out COVID-19 05/08/2021 05/08/2021 05/09/2021 9:08 PM TECHNICAL WRITER documented as of this encounter Care Teams Manager Linux Relationship Specialty Start Date End Date Esperanza Gatica MD PCP - General Family Practice 10/13/11 12/29/21 [place] [address] [place] [address] PCP - Assigned PCP 12/05/17 08/23/18 Alfreda Ray PA-C [address] [place] [address]31 PCP - General Family Medicine 12/30/21 [place] [address] [place] [address] Assigned PCP 12/05/17 09/30/19 [place] [address] [place] [address] Assigned PCP 10/01/19 03/02/20 [place] [address] [place] [address] Assigned PCP 03/03/20 05/25/20 [place] [address] [place] [address] Assigned PCP 05/26/20 09/28/20 [place] [address] [place] [address] Assigned PCP 09/29/20 07/31/22 Jesú[place] [address] [place] [address] Assigned Musculoskeletal Provider 10/20/20 04/17/22 Alfreda Ray PA-C [address] [place] [address] 385552 Referring Physician Family Medicine 12/31/21 Katrin Orellana PA-C [address] [place] [address] 106615 Physician Electronics Technician Apprentice Dermatology 12/31/21 Shanna Vang PA-C [address] [place] [address] 046164 Assigned Cancer Care Provider 01/10/22 Fransisco Eddy MD [address] [place] [address] 704815 Assigned Rheumatology Provider 05/09/22 [place] [address] [facility] [place] [address] Assigned Pain Medication Provider 06/29/22 09/04/22 [place] [address] [place] [address] Assigned PCP 08/15/22 08/28/22 Katrin Orellana PA-C [address] [place] [address] 963665 Assigned Surgical Provider 08/15/22 02/10/24 Cristina Hsieh [facility] [address] [facility] [place] [address] Pharmacist Pharmacist 09/07/22 Alfreda Ray PA-C [address] [place] [address] 27438 Assigned Pain Medication Provider 09/05/22 09/10/23 Alfreda Ray PA-C [address] [place] [address] 92734 Assigned PCP 08/29/22 Cristina Hsieh, [facility] [address] [address] Assigned MTM Pharmacist 09/26/22 Dakota Tatum MD [address] [place] [address] 77358 Cardiovascular Disease 03/25/23 Dakota Tatum MD [address] [place] [address] 57475 Assigned Heart and Vascular Provider 05/01/23 [place] [address] CELE GASTELUM, [facility] [address] [place] [address] Assigned Musculoskeletal Provider 04/12/24 documented as of this encounter
--- OUTSIDE RECORDS SUMMARY | 2024-06-23 00:27 | XMS_ITS | Encounter Summary ---
Author Organization [facility] Address [address] [place] [address] 05478 Care Team Providers Care Account Clerk Name Role Phone Esperanza Gatica MD Primary Care Provider + Esperanza Gatica MD Unavailable +[phone] Esperanza Gatica MD Unavailable +[phone] Esperanza Gatica MD Unavailable +521 Esperanza Gatica MD Unavailable +234 Esperanza Gatica MD Unavailable +329 Esperanza Gatica MD Unavailable +[phone] Jesús Orourke MD Unavailable Alfreda RayC Primary Care Provider + Alfreda Ray PA-C Unavailable + [phone] Katrin Orellana PA-C Unavailable [phone] Shanna VangC Unavailable +[phone] Fransisco Eddy MD Unavailable [phone] Esperanza Gatica MD Unavailable +[phone] Esperanza Gatica MD Unavailable +[phone] Katrin Orellana PA-C Unavailable Cristina Hsieh [facility] Unavailable Cory Alfreda Liu PA-C Unavailable [phone] Ho Raymustapha Liu PA-C Unavailable +[phone] Cristina Hsieh [facility] Unavailable Dakota Tatum MD Unavailable Dakota Tatum MD Unavailable [phone] Srinivas Marie DO Unavailable [phone] Reason for Visit * Reason Onset Date Comments Refill Request 10/13/2013 Atenolol 25mg Encounter Details Date Type Department Care Team (Late st Contact Info) Description 10/13/2013 MyC Refill [address], [address] [place] [address] [place] [address] [place] [address] Refill Request (Atenolol 25mg) Social History Tobacco Use Types Packs/Day Years Used Date Smoking Tobacco: Former Cigarettes Q uit: 06/21/1973 Smokeless Tobacco: Former Alcohol Use Standard Drinks/Week Comments Yes 0 (1 standard drink = 0.6 oz pur e alcohol) rarely Comments No Sex and Gender Information Value Date Recorded Sex Assigned at Female 08/17/2018 7:56 AM ACADEMIC AFFAIRS DIRECTOR Legal Sex Female 4:24 AM ACADEMIC AFFAIRS DIRECTOR Gender Identity Female 08/17/2018 7:56 AM ACADEMIC AFFAIRS DIRECTOR Sexual Orientation Straight 08/17/2018 7: 56 AM ACADEMIC AFFAIRS DIRECTOR documented as of this encounter Miscellaneous Notes * Telephone Encounter - Leigha Rinaldi RN - 10/16/2013 11:17 AM CDT Last Office Visit R/T Diagnosis: 07/14/2013 BP Readings from Last 3 Encounters: 07/14/13 122/60 11/08/12 112/60 06/23/12 104/60 Medication approved per standing orders. Leigha Rinaldi RN * Telephone Encounter - Leigha Rinaldi RN - 10/16/2013 11:16 AM [facility] Original authorizing provider: MD Alexandria Brannon would like a refill of the following medications: atenolol (TENORMIN) 25 MG tablet [Esperanza Gatica MD] Preferred pharmacy: [id number] Comment: I asked for a refill [...] 10:00 AM CDT Office Visit [facility] [address] [phone] Fransisco Eddy MD [address] [place] [address] 03/29/2025 3:40 PM CDT Office Visit [address] [place] [phone] Alfreda Ray PA-C [address] [place] [address] 387662 documented as of this encounter Visit Diagnoses Diagnosis HTN (hypertension), benign Essential hypertension, benign documented in this encounter Additional Health Concerns Infection Onset Date Last Indicated Resolved Time Rule Out COVID-19 05/08/2021 05/08/2021 05/09/2021 9:08 PM ACADEMIC AFFAIRS DIRECTOR documented as of this encounter Care Teams Account Clerk Relationship Specialty Start Date End Date Esperanza Gatica MD PCP - General Family Practice 10/13/11 12/29/21 [place] [address] [place] [address] PCP - Assigned PCP 12/05/17 08/23/18 Alfreda Ray PA-C [address] [place] [address] PCP - General Family Medicine 12/30/21 [place] [address] [place] [address] Assigned PCP 12/05/17 09/30/19 [place] [address] [place] [address] Assigned PCP 10/01/19 03/02/20 [place] [address] [place] [address] Assigned PCP 03/03/20 05/25/20 [place] [address] [place] [address] Assigned PCP 05/26/20 09/28/20 [place] [address] [place] [address] Assigned PCP 09/29/20 07/31/22 [place] [address] [place] [address] [place] [address] Assigned Musculoskeletal Provider 10/20/20 04/17/22 Alfreda Ray PA-C [address] [place] [address] [phone] Referring Physician Family Medicine 12/31/21 Katrin Orellana PA-C [address] [place] [address] 373375 Physician Threat Monitoring Analyst Dermatology 12/31/21 Shanna Vang PA-C [address] 244884 Assigned Cancer Care Provider 01/10/22 Fransisco Eddy MD [address] [place] [address] 154485 Assigned Rheumatology Provider 05/09/22 [place] [address] [place] GARCIA [address] Assigned Pain Medication Provider 06/29/22 09/04/22 [place] [address] [place] GARCIA [address] Assigned PCP 08/15/22 08/28/22 Katrin Orellana PA-C [address] [place] [address] 307495 Assigned Surgical Provider 08/15/22 02/10/24 Cristina Hsieh, [facility] [address] [facility] L[place]BETH HERNANDEZ [address] Pharmacist Pharmacist 09/07/22 Alfreda Ray PA-C [address] [place] [address] 118222 Assigned Pain Medication Provider 09/05/22 09/10/23 Alfreda Ray PA-C [address] [place] [address] 046532 Assigned PCP 08/29/22 Cristina Hsieh [facility] [address] [address] Assigned MTM Pharmacist 09/26/22 Dakota Tatum MD [address] [place] [address] 7[address]44 Cardiovascular Disease 03/25/23 Dakota Tatum MD [address] [place] [address] 20397 Assigned Heart and Vascular Provider 05/01/23 [place] [address] [place] [facility] [address] [place] [address] Assigned Musculoskeletal Provider 04/12/24 documented as of this encounter
--- OUTSIDE RECORDS SUMMARY | 2024-06-23 00:28 | XMS_ITS | Encounter Summary ---
Author Organization [facility] Address [address] [place] [address] 11787 Care Team Providers Care Plug Wirer Name Role Phone Esperanza Gatica MD Primary Care Provider + Epseranza Gatica MD Unavailable +[phone] Esperanza Gatica MD Unavailable +551 Esperanza Gatica MD Unavailable +644 Esperanza Gatica MD Unavailable +301 Esperanza Gatica MD Unavailable +222 Esperanza Gatica MD Unavailable +[phone] Jesús Orourke MD Unavailable Alfreda RayC Primary Care Provider + Alfreda Ray PA-C Unavailable + [phone] Katrin Orellana PA-C Unavailable [phone] Shanna VangC Unavailable +[phone] Fransisco Eddy MD Unavailable [phone] Esperanza Gatica MD Unavailable +[phone] Esperanza Gatica MD Unavailable +[phone] Katrin Orellana PA-C Unavailable Cristina Hsieh [facility] Unavailable Alfreda Ray Alexa KING Unavailable +[phone] Alfreda Ray Alexa KING Unavailable +[phone] Cristina Hsieh [facility] Unavailable [phone] Dakota Tatum MD Unavailable [phone] Dakota Tatum MD Unavailable [phone] Srinivas Marie DO Unavailable [phone] Reason for Visit * Reason Onset Date Comments Refill Request 01/14/2013 vicodin Encounter Details Date Type Department Care Team (Late st Contact Info) Description 01/14/2013 MyC Refill M [address], [address] [place] [address] [place] [address] [place] [address] Refill Request (vicodin) Social History Tobacco Use Types Packs/Day Years Used Date Smoking Tobacco: Former Cigarettes Q uit: 06/21/1973 Smokeless Tobacco: Former Alcohol Use Standard Drinks/Week Comments Yes 0 (1 standard drink = 0.6 oz pur e alcohol) rarely Comments No Sex and Gender Information Value Date Recorded Sex Assigned at Female 08/17/2018 7:56 AM ASSISTANT OFFICE MANAGER Legal Sex Female 4:24 AM ASSISTANT OFFICE MANAGER Gender Identity Female 08/17/2018 7:56 AM ASSISTANT OFFICE MANAGER Sexual Orientation Straight 08/17/2018 7: 56 AM ASSISTANT OFFICE MANAGER documented as of this encounter Miscellaneous [...] Harper - 01/16/2013 11:06 AM [facility]: Original authorizing provider: MD Alexandria Brannon would like a refill of the following medications: HYDROcodone-acetaminophen (VICODIN) 5-500 MG per tablet [Esperanza Gatica MD] Preferred pharmacy: [facility] [address] [place] [address] Comment: Sent from my iPad documented in this encounter Plan of Treatment Upcoming Encounters Date Type Department Care Team (Late st Contact Info) Description 09/07/2024 10:00 AM CDT Office Visit [address] [phone] Fransisco Eddy MD [address] [place] [address] [phone] 03/29/2025 3:40 PM CDT Office Visit [address] [phone] Alfreda Ray PA-C [address] [place] [address] 166832 documented as of this encounter Visit Diagnoses Diagnosis Osteoarthritis- Primary Osteoarthrosis, unspecified whether generalized or localized, unspecified site documented in this encounter Additional Health Concerns Infection Onset Date Last Indicated Resolved Time Rule Out COVID-19 05/08/2021 05/08/2021 05/09/2021 9:08 PM ASSISTANT OFFICE MANAGER documented as of this encounter Care Teams Plug Wirer Relationship Specialty Start Date End Date Esperanza Gatica MD PCP - General Family Practice 10/13/11 12/29/21 [place] [address] [place] [address] PCP - Assigned PCP 12/05/17 08/23/18 Alfreda Ray PA-C [address] [place] [address] PCP - General Family Medicine 12/30/21 [place] [address] [place] [address] Assigned PCP 12/05/17 09/30/19 [place] [address] [place] [place] [address] Assigned PCP 10/01/19 03/02/20 [place] [address] [place] [place] [address] Assigned PCP 03/03/20 05/25/20 [place] [address] [place] [address] Assigned PCP 05/26/20 09/28/20 [place] [address] [address] [place] [address] Assigned PCP 09/29/20 07/31/22 Jesú[place] [address] [place] [address] Assigned Musculoskeletal Provider 10/20/20 04/17/22 Alfreda Ray PA-C [address] [place] [address] 907732 Referring Physician Family Medicine 12/31/21 Katrin Orellana PA-C [address] [place] [address] 270735 Physician Poleyard Supervisor Dermatology 12/31/21 Shanna Vang PA-C [address] [place] [address] 390554 Assigned Cancer Care Provider 01/10/22 Fransisco Eddy MD [address] [place] [address] 658895 Assigned Rheumatology Provider 05/09/22 [place] [address] [place]ARCIA [address] Assigned Pain Medication Provider 06/29/22 09/04/22 [place] [address] [place]ARCIA [address] Assigned PCP 08/15/22 08/28/22 Katrin Orellana PA-C [address] [place] [address] 159055 Assigned Surgical Provider 08/15/22 02/10/24 Cristina Hsieh [facility] [address] [facility] [place]DEZ [address] Pharmacist Pharmacist 09/07/22 Alfreda Ray PA-C [address] [place] [address] Assigned Pain Medication Provider 09/05/22 09/10/23 Alfreda Ray PA-C [address] [place] [address] 69274 Assigned PCP 08/29/22 Cristina Hsieh, [facility] [address] [address] Assigned MTM Pharmacist 09/26/22 Dakota Tatum MD [address] [place] [address] Cardiovascular Disease 03/25/23 Dakota Tatum MD [address] [place] [address] 8[address] Assigned Heart and Vascular Provider 05/01/23 [place] [address] [facility], [address] [address] Assigned Musculoskeletal Provider 04/12/24 documented as of this encounter
--- OUTSIDE RECORDS SUMMARY | 2024-06-23 00:28 | XMS_ITS | Encounter Summary ---
Author Organization [facility] Address [address] [place] [address] Care Team Providers Care Hybrid Powertrain Development Engineer Name Role Phone Esperanza Gatica MD Primary Care Provider + Esperanza Gatica MD Unavailable +[phone] Esperanza Gatica MD Unavailable +[phone] Esperanza Gatica MD Unavailable +240 Esperanza Gatica MD Unavailable +[phone] Esperanza Gatica MD Unavailable +[phone] Esperanza Gatica MD Unavailable +[phone] Jesús Orourke MD Unavailable Alfreda RayC Primary Care Provider + Alfreda Ray PA-C Unavailable + [phone] Katrin Orellana PA-C Unavailable +[phone] Shanna VangC Unavailable +[phone] Fransisco Eddy MD Unavailable +[phone] Esperanza Gatica MD Unavailable +[phone] Esperanza Gatica MD Unavailable +[phone] Katrin Orellana PA-C Unavailable Cristina Hsieh [facility] Unavailable Ho Raymustapha Liu PA-C Unavailable +[phone] Alfreda Ray Alexa KING Unavailable +[phone] Cristina Hsieh [facility] Unavailable [phone] Dakota Tatum MD Unavailable [phone] Dakota Tatum MD Unavailable [phone] Srinivas Marie DO Unavailable [phone] Reason for Visit * Reason Onset Date Comments Refill Request 08/28/2013 tramadol Encounter Details Date Type Department Care Team (Late st Contact Info) Description 08/28/2013 MyC Refill [address], [address] [place] [address] [place] [address] [place] [address] Refill Request (tramadol) Social History Tobacco Use Types Packs/Day Years Used Date Smoking Tobacco: Former Cigarettes Q uit: 06/21/1973 Smokeless Tobacco: Former Alcohol Use Standard Drinks/Week Comments Yes 0 (1 standard drink = 0.6 oz pur e alcohol) rarely Comments No Sex and Gender Information Value Date Recorded Sex Assigned at Female 08/17/2018 7:56 AM PICKING BELT OPERATOR Legal Sex Female 4:24 AM PICKING BELT OPERATOR Gender Identity Female 08/17/2018 7:56 AM PICKING BELT OPERATOR Sexual Orientation Straight 08/17/2018 7: 56 AM PICKING BELT OPERATOR documented as of this encounter Miscellaneous Notes * Telephone Encounter - Diane Macedo RN - 08/28/2013 11:57 AM CDT Does not meet standard requirement for RN refill protocol. Medication: tramadol Last OV: 07/14/13 Provider: MD ZAIDA Reason for visit: HTN, CKD, etc... Last refill: 07/31/13 #30 Please refill if appropriate. Thank you! Diane Mcaedo RN [facility] Work Force * Telephone Encounter - Diane Macedo RN - 08/28/2013 11:57 AM CDT Message from [facility]: Original authorizing provider: MD Alexandria Brannon Zenobia Cococecy would like a refill of the following medications: traMADol (ULTRAM) 50 MG tablet [Esperanza Gatica MD] Preferred pharmacy: [id number] Comment: Sent from my iPad documented in this encounter Plan of Treatment Upcoming Encounters Date Type Department Care Team (Late st Contact Info) Description 09/07/2024 10:00 AM CDT Office Visit [address] [phone] Fransisco Eddy MD [address] [place] [address] 03/29/2025 3:40 PM CDT Office Visit [address] [phone] Alfreda Ray PA-C [address] [place] [address] [phone] documented as of this encounter Visit Diagnoses Diagnosis Knee pain Pain in joint, lower leg documented in this encounter Additional Health Concerns Infection Onset Date Last Indicated Resolved Time Rule Out COVID-19 05/08/2021 05/08/2021 05/09/2021 9:08 PM PICKING BELT OPERATOR documented as of this encounter Care Teams Hybrid Powertrain Development Engineer Relationship Specialty Start Date End Date Esperanza Gatica MD PCP - General Family Practice 10/13/11 12/29/21 [place] [address] [place] [address] PCP - Assigned PCP 12/05/17 08/23/18 Alfreda Ray PA-C [address] [place] [address], [place] [address] PCP - General Family Medicine 12/30/21 [place] [address] [place] [address] Assigned PCP 12/05/17 09/30/19 [place] [address] [place] [address] Assigned PCP 10/01/19 03/02/20 [place] [address] [place] [address] Assigned PCP 03/03/20 05/25/20 [place] [address] [place] [address] Assigned PCP 05/26/20 09/28/20 [place] [address] [place] [address] Assigned PCP 09/29/20 07/31/22 Jesú[place] [address] [place] [address] Assigned Musculoskeletal Provider 10/20/20 04/17/22 Alfreda Ray PA-C [address] [place] [address] Referring Physician Family Medicine 12/31/21 Katrin Orellana PA-C [address] [place] [address] [phone] Physician Glass Crusher Dermatology 12/31/21 Shanna Vang PA-C [address] 297074 Assigned Cancer Care Provider 01/10/22 Fransisco Eddy MD [address] [place] [address] 899385 Assigned Rheumatology Provider 05/09/22 [place] [address] [place] [address] Assigned Pain Medication Provider 06/29/22 09/04/22 [place] [address] [place] [address] Assigned PCP 08/15/22 08/28/22 Katrin Orellana PA-C [address] [place] [address] 313035 Assigned Surgical Provider 08/15/22 02/10/24 Cristina Hsieh, [facility] [address] [facility] [place] [address] Pharmacist Pharmacist 09/07/22 Alfreda Ray PA-C [address] [place] [address] Assigned Pain Medication Provider 09/05/22 09/10/23 Alfreda Ray PA-C [address] [place] [address] Assigned PCP 08/29/22 Cristina Hsieh, [facility] [address] [place] [address] Assigned MTM Pharmacist 09/26/22 Dakota Tatum MD [address] [place] [address] Cardiovascular Disease 03/25/23 Dakota Tatum MD [address] [place] [address] Assigned Heart and Vascular Provider 05/01/23 [place] [address] [address] , [address] [address] Assigned Musculoskeletal Provider 04/12/24 documented as of this encounter
--- OUTSIDE RECORDS SUMMARY | 2024-06-23 00:28 | XMS_ITS | Encounter Summary ---
Author Organization [facility] Address [address] [place] [address] Care Team Providers Care Media Librarian Name Role Phone Esperanza Gatica MD Primary Care Provider + Esperanza Gatica MD Unavailable +[phone] Esperanza Gatica MD Unavailable +[phone] Esperanza Gatica MD Unavailable +[phone] Esperanza Gatica MD Unavailable +601 Esperanza Gatica MD Unavailable +[phone] Esperanza Gatica MD Unavailable +[phone] Jesús Orourke MD Unavailable Alfreda RayC Primary Care Provider + Alfreda Ray PA-C Unavailable + [phone] Katrin Orellana PA-C Unavailable +[phone] Shanna VangC Unavailable +[phone] Fransisco Eddy MD Unavailable [phone] Esperanza Gatica MD Unavailable +[phone] Esperanza Gatica MD Unavailable +[phone] Katrin Orellana PA-C Unavailable [phone] Cristina Hsieh [facility] Unavailable Alfreda Ray Alexa KING Unavailable +[phone] Alfreda Ray Alexa KING Unavailable +[phone] Cristina Hsieh [facility] Unavailable [phone] Dakota Tatum MD Unavailable Dakota Tatum MD Unavailable [phone] Srinivas Marie DO Unavailable [phone] Reason for Visit * Reason Onset Date Comments Refill Request 10/28/2012 Brynat Bazzi l Encounter Details Date Type Department Care Team (Late st Contact Info) Description 10/28/2012 MyC Refill M [address], [address] [place] [address] [place] [address] [place] [address] Refill Request (Vicodin, Tramadol) Social History Tobacco Use Types Packs/Day Years Used Date Smoking Tobacco: Former Cigarettes Q uit: 06/21/1973 Smokeless Tobacco: Former Alcohol Use Standard Drinks/Week Comments Yes 0 (1 standard drink = 0.6 oz pur e alcohol) rarely Comments No Sex and Gender Information Value Date Recorded Sex Assigned at Female 08/17/2018 7:56 AM INSULATION MANAGER Legal Sex Female 4:24 AM INSULATION MANAGER Gender Identity Female 08/17/2018 7:56 AM INSULATION MANAGER Sexual Orientation Straight 08/17/2018 7: 56 AM INSULATION MANAGER documented as of this encounter Miscellaneous Notes * Telephone Encounter - Leigha Rinaldi - 10/28/2012 11:27 AM CDT [facility]-1victoria message sent to patient. Leigha Rinaldi RN [...] Rinaldi - 10/28/2012 10:36 AM [facility] Original authorizing provider: Esperanza Gatica MD Alexandria Fregoso Leeann would like a refill of the following medications: HYDROcodone-acetaminophen (VICODIN) 5-500 MG per tablet [Esperanza Gatica MD] Preferred pharmacy: [id number] Comment: Medication renewals requested in this message routed to other providers: traMADol (ULTRAM) 50 MG tablet [Royer Brumfield MD, MD] documented in this encounter Plan of Treatment Upcoming Encounters Date Type Department Care Team (Late st Contact Info) Description 09/07/2024 10:00 AM CDT Office Visit [facility] [address] [phone] Fransisco Eddy MD [address] [place] [address] 063595 03/29/2025 3:40 PM CDT Office Visit [address] [phone] Alfreda Ray PA-C [address] [place] [address] 711712 documented as of this encounter Visit Diagnoses Diagnosis Osteoarthritis- Primary Osteoarthrosis, unspecified whether generalized or localized, unspecified site Knee pain Pain in joint, lower leg documented in this encounter Additional Health Concerns Infection Onset Date Last Indicated Resolved Time Rule Out COVID-19 05/08/2021 05/08/2021 05/09/2021 9:08 PM INSULATION MANAGER documented as of this encounter Care Teams Media Librarian Relationship Specialty Start Date End Date Esperanza Gatica MD PCP - General Family Practice 10/13/11 12/29/21 [place] [address] [place] [address] PCP - Assigned PCP 12/05/17 08/23/18 Alfreda Ray PA-C [address] [place] [address] PCP - General Family Medicine 12/30/21 [place] [address] [place] [address] Assigned PCP 12/05/17 09/30/19 [place] [address] [place] [address] Assigned PCP 10/01/19 03/02/20 [place] [address] [place] [address] Assigned PCP 03/03/20 05/25/20 [place] [address] [place] [address] Assigned PCP 05/26/20 09/28/20 [place] [address] [place] [address] Assigned PCP 09/29/20 07/31/22 [place] [address] [place] [address] [address] Assigned Musculoskeletal Provider 10/20/20 04/17/22 Alfreda Ray PA-C [address] [place] [address] Referring Physician Family Medicine 12/31/21 Katrin Orellana PA-C [address] [place] [address] Physician Superintendent Storage Area Dermatology 12/31/21 Shanna Vang PA-C [address] [address] Assigned Cancer Care Provider 01/10/22 Fransisco Eddy MD [address] [place] [address] Assigned Rheumatology Provider 05/09/22 [place] [address] [place] [address] Assigned Pain Medication Provider 06/29/22 09/04/22 [place] [address] [place] [address] Assigned PCP 08/15/22 08/28/22 Katrin Orellana PA-C [address] [place] [address] [address] [place] [address] Assigned Surgical Provider 08/15/22 02/10/24 Cristina Hsieh [facility] [address] [facility] [place] [address] Pharmacist Pharmacist 09/07/22 Alfreda Ray PA-C [address] [place] [address] 001622 Assigned Pain Medication Provider 09/05/22 09/10/23 Alfreda Ray PA-C [address] [place] [address] 311402 Assigned PCP 08/29/22 Cristina Hsieh [facility] [address] [place] [address] Assigned MTM Pharmacist 09/26/22 Dakota Tatum MD [address] [place] [address] Cardiovascular Disease 03/25/23 Dakota Tatum MD [address] [place] [address]87 Assigned Heart and Vascular Provider 05/01/23 [place] [address] [facility], [address] [address] Assigned Musculoskeletal Provider 04/12/24 documented as of this encounter
--- OUTSIDE RECORDS SUMMARY | 2024-06-23 00:28 | XMS_ITS | Encounter Summary ---
Author Organization [facility] Address [address] [place] [address] Care Team Providers Care Billet Shearer Name Role Phone Esperanza Gatica MD Primary Care Provider + Esperanza Gatica MD Unavailable +[phone] Esperanza Gatica MD Unavailable +[phone] Esperanza Gatica MD Unavailable +[phone] Esperanza Gatica MD Unavailable +[phone] Esperanza Gatica MD Unavailable +[phone] Esperanza Gatica MD Unavailable +[phone] Jesús Orourke MD Unavailable Alfreda RayC Primary Care Provider + Alfreda Ray PA-C Unavailable + [phone] Katrin Orellana PA-C Unavailable [phone] Shanna VangC Unavailable +[phone] Fransisco Eddy MD Unavailable [phone] Esperanza Gatica MD Unavailable +[phone] Esperanza Gatica MD Unavailable +[phone] Katrin Orellana PA-C Unavailable Cristina Hsieh [facility] Unavailable Ray, Alfreda Liu PA-C Unavailable +[phone] Cory Alfreda Liu PA-C Unavailable +[phone] Cristina Hsieh [facility] Unavailable [phone] Dakota Tatum MD Unavailable Dakota Tatum MD Unavailable Srinivas Marie DO Unavailable [phone] Reason for Visit * Reason Onset Date Comments Refill Request 06/24/2013 Lisinopril-HCTZ Encounter Details Date Type Department Care Team (Late st Contact Info) Description 06/24/2013 MyC Refill [address], [address] [place] [address] [place] [address] [place] [address] Refill Request (Lisinopril-HCTZ) Social History Tobacco Use Types Packs/Day Years Used Date Smoking Tobacco: Former Cigarettes Q uit: 06/21/1973 Smokeless Tobacco: Former Alcohol Use Standard Drinks/Week Comments Yes 0 (1 standard drink = 0.6 oz pur e alcohol) rarely Comments No Sex and Gender Information Value Date Recorded Sex Assigned at Female 08/17/2018 7:56 AM SPECIAL EDUCATION TEACHERS Legal Sex Female 4:24 AM SPECIAL EDUCATION TEACHERS Gender Identity Female 08/17/2018 7:56 AM SPECIAL EDUCATION TEACHERS Sexual Orientation Straight 08/17/2018 7: 56 AM SPECIAL EDUCATION TEACHERS documented as of this encounter Miscellaneous Notes [...] Will route to provider. Leigha Rinaldi RN [employer] EDUCATION TEACH[employer] * Telephone Encounter - Leigha Rinaldi - 06/26/2013 7:59 AM CSTMessage from [facility]: Original authorizing provider: MD Sadia Brannonyovana Bradshaw would like a refill of the following medications: lisinopril-hydrochlorothiazide (PRINZIDE,ZESTORETIC) 10-12.5 MG per tablet [Esperanza Gatica MD] Preferred pharmacy: [id number] Comment: Sent from my iPadI called this in to the pharmacy but it hasn't been filled. I take the last one onWednesday (6th). IAL EDUCATION TEACHERS documented in this encounter Plan of Treatment Upcoming Encounters Date Type Department Care Team (Late st Contact Info) Description 09/07/2024 10:00 AM CDT Office Visit [facility] Specialty [address] [phone] Fransisco Eddy MD [address] [place] [address] 037115 03/29/2025 3:40 PM CDT Office Visit [address] [phone] Alfreda Ray PA-C [address] [place] [address] 600692 documented as of this encounter Visit Diagnoses Diagnosis HTN (hypertension), benign Essential hypertension, benign documented in this encounter Additional Health Concerns Infection Onset Date Last Indicated Resolved Time Rule Out COVID-19 05/08/2021 05/08/2021 05/09/2021 9:08 PM SPECIAL EDUCATION TEACHERS documented as of this encounter Care Teams Billet Shearer Relationship Specialty Start Date End Date Esperanza Gatica MD PCP - General Family Practice 10/13/11 12/29/21 [place] [address] [place] [address] PCP - Assigned PCP 12/05/17 08/23/18 Alfreda Ray PA-C [address] [place] [address] PCP - General Family Medicine 12/30/21 [place] [address] [place] [address] Assigned PCP 12/05/17 09/30/19 [place] [address] [place] [address] Assigned PCP 10/01/19 03/02/20 [place] [address] [place] [address] Assigned PCP 03/03/20 05/25/20 [place] [address] [place] [address] Assigned PCP 05/26/20 09/28/20 [place] [address] [place] [address] Assigned PCP 09/29/20 07/31/22 Jesú[place] [address] [place] [address] Assigned Musculoskeletal Provider 10/20/20 04/17/22 Alfreda Ray PA-C [address] [place] [address] Referring Physician Family Medicine 12/31/21 Katrin Orellana PA-C [address] [place] [address] Physician Hybrid Tester Dermatology 12/31/21 Shanna Vang PA-C [address] 717804 Assigned Cancer Care Provider 01/10/22 Fransisco Eddy MD [address] [place] [address] 467395 Assigned Rheumatology Provider 05/09/22 [place] [address] [place] [address] Assigned Pain Medication Provider 06/29/22 09/04/22 [place] [address] [place] [address] Assigned PCP 08/15/22 08/28/22 Katrin Orellana PA-C [address] [place] [address]28 Assigned Surgical Provider 08/15/22 02/10/24 Cristina Hsieh, [facility] [address] [facility] [place] [address] Pharmacist Pharmacist 09/07/22 Alfreda Ray PA-C [address] [place] [address] Assigned Pain Medication Provider 09/05/22 09/10/23 Alfreda Ray PA-C [address] [place] [address] 842802 Assigned PCP 08/29/22 Cristina Hsieh, [facility] [address] [address] Assigned MTM Pharmacist 09/26/22 Dakota Tatum MD [address] [place] [address] Cardiovascular Disease 03/25/23 Dakota Tatum MD [address] [place] [address] Assigned Heart and Vascular Provider 05/01/23 [place] [address] [place] , [address] [address] Assigned Musculoskeletal Provider 04/12/24 documented as of this encounter
--- OUTSIDE RECORDS SUMMARY | 2024-06-23 00:28 | XMS_ITS | Encounter Summary ---
Author Organization [facility] Address [address] [place] [address] Care Team Providers Care Rotary Kiln Operator Name Role Phone Esperanza Gatica MD Primary Care Provider + Esperanza Gatica MD Unavailable +[phone] Esperanza Gatica MD Unavailable +[phone] Esperanza Gatica MD Unavailable +300 Esperanza Gatica MD Unavailable +[phone] Esperanza Gatica MD Unavailable +[phone] Esperanza Gatica MD Unavailable +[phone] Jesús Orourke MD Unavailable Alfreda RayC Primary Care Provider + Alfreda Ray PA-C Unavailable + [phone] Katrin Orellana PA-C Unavailable [phone] Shanna VangC Unavailable +[phone] Fransisco Eddy MD Unavailable [phone] Esperanza Gatica MD Unavailable +[phone] Esperanza Gatica MD Unavailable +[phone] Katrin Orellana PA-C Unavailable [phone] Cristina Hsieh [facility] Unavailable CoryAlfreda PA-C Unavailable Ho Raymustapha Liu PA-C Unavailable +[phone] Cristina Hsieh [facility] Unavailable Dakota Tatum MD Unavailable Dakota Tatum MD Unavailable [phone] Srinivas Marie DO Unavailable [phone] Reason for Visit * Reason Onset Date Comments Refill Request 11/25/2012 tramadol 50 MG Encounter Details Date Type Department Care Team (Late st Contact Info) Description 11/25/2012 MyC Refill [address] [address] [place] [address] [place] [address] Refill Request (tramadol 50 MG) Social History Tobacco Use Types Packs/Day Years Used Date Smoking Tobacco: Former Cigarettes Q uit: 06/21/1973 Smokeless Tobacco: Former Alcohol Use Standard Drinks/Week Comments Yes 0 (1 standard drink = 0.6 oz pur e alcohol) rarely Comments No Sex and Gender Information Value Date Recorded Sex Assigned at Female 08/17/2018 7:56 AM DENITRATOR OPERATOR Legal Sex Female 4:24 AM DENITRATOR OPERATOR Gender Identity Female 08/17/2018 7:56 AM DENITRATOR OPERATOR Sexual Orientation Straight 08/17/2018 7: 56 AM DENITRATOR OPERATOR documented as of this encounter Miscellaneous Notes * Telephone Encounter - Diane Macedo - 11/25/2012 9:48 AM CDT Does not meet standard requirement for RN refill protocol. Medication: tramadol 50 MG Last OV: 11/08/12 Reason for visit: Osteoarthritis Last refill: 10/28/12 #30 Please refill if appropriate. Thank you! Diane Macedo RN [facility] Work Force * Telephone Encounter - Diane Macedo - 11/25/2012 9:47 AM [facility] Original authorizing provider: MD Alexandria Brannon would like a refill of the following medications: traMADol (ULTRAM) 50 MG tablet [Esperanza Gatica MD] Preferred pharmacy: [id number] Comment: Sent from my to-BBBhone documented in this encounter Plan of Treatment Upcoming Encounters Date Type Department Care Team (Late st Contact Info) Description 09/07/2024 10:00 AM CDT Office Visit [address] [phone] Fransisco Eddy MD [address] [place] [address] 406515 03/29/2025 3:40 PM CDT Office Visit [address] [phone] Alfreda Ray PA-C [address] [place] [address] 638432 documented as of this encounter Visit Diagnoses Diagnosis Knee pain Pain in joint, lower leg documented in this encounter Additional Health Concerns Infection Onset Date Last Indicated Resolved Time Rule Out COVID-19 05/08/2021 05/08/2021 05/09/2021 9:08 PM DENITRATOR OPERATOR documented as of this encounter Care Teams Rotary Kiln Operator Relationship Specialty Start Date End Date Esperanza Gatica MD PCP - General Family Practice 10/13/11 12/29/21 [place] [address] [place] [address] PCP - Assigned PCP 12/05/17 08/23/18 Alfreda Ray PA-C [address] [place] [address] PCP - General Family Medicine 12/30/21 [place] [address] [place] [address] Assigned PCP 12/05/17 09/30/19 [place] [address] [place] [address] Assigned PCP 10/01/19 03/02/20 [place] [address] [place] [address] Assigned PCP 03/03/20 05/25/20 [place] [address] [place] [address] Assigned PCP 05/26/20 09/28/20 [place] [address] [place] [address] Assigned PCP 09/29/20 07/31/22 Jesú[place] [address] [place], [place] [address] Assigned Musculoskeletal Provider 10/20/20 04/17/22 Alfreda Ray PA-C [address] [place] [address] Referring Physician Family Medicine 12/31/21 Katrin Orellana PA-C [address] [place] [address] Physician Lithographic Platemaker Dermatology 12/31/21 Shanna Vang PA-C [address] [place] [address] 725354 Assigned Cancer Care Provider 01/10/22 Fransisco Eddy MD [address] [place] [address] 566745 Assigned Rheumatology Provider 05/09/22 [place] [address] [place] [address] Assigned Pain Medication Provider 06/29/22 09/04/22 [place] [address] [place] [place] [address] Assigned PCP 08/15/22 08/28/22 Katrin Orellana PA-C [address] [place] [address] 117145 Assigned Surgical Provider 08/15/22 02/10/24 Cristina Hsieh, [facility] [address] [facility] [place] [address] Pharmacist Pharmacist 09/07/22 Alfreda Ray PA-C [address] [place] [address] Assigned Pain Medication Provider 09/05/22 09/10/23 Alfreda Ray PA-C [address] [place] [address] Assigned PCP 08/29/22 Cristina Hsieh, [facility] [address] [address] Assigned MTM Pharmacist 09/26/22 Dakota Tatum MD [address] [place] [address] Cardiovascular Disease 03/25/23 Dakota Tatum MD [address] [place] [address] Assigned Heart and Vascular Provider 05/01/23 [place] [address] [facility], [address] [address] Assigned Musculoskeletal Provider 04/12/24 documented as of this encounter
--- OUTSIDE RECORDS SUMMARY | 2024-06-23 00:28 | XMS_ITS | Encounter Summary ---
Author Organization [place] Address [address] [place] [address] 87265 Care Team Providers Care Jig Operator Name Role Phone Esperanza Gatica MD Primary Care Provider + Esperanza Gatica MD Unavailable +[phone] Esperanza Gatica MD Unavailable +[phone] Esperanza Gatica MD Unavailable +[phone] Esperanza Gatica MD Unavailable +[phone] Esperanza Gatica MD Unavailable +[phone] Esperanza Gatica MD Unavailable +[phone] Jesús Orourke MD Unavailable Alfreda RayC Primary Care Provider + Alfreda Ray PA-C Unavailable + [phone] Katrin Orellana PA-C Unavailable +[phone] Shanna VangC Unavailable +[phone] Fransisco Eddy MD Unavailable +[phone] Esperanza Gatica MD Unavailable +[phone] Esperanza Gatica MD Unavailable +[phone] Katrin Orellana PA-C Unavailable Cristina Hsieh [facility] Unavailable Cory Alfreda Liu PA-C Unavailable +[phone] Ho Raymustapha Liu PA-C Unavailable +[phone] Cristina Hsieh [facility] Unavailable +[phone] Dakota Tatum MD Unavailable +[phone] Dakota Tatum MD Unavailable +[phone] Srinivas Marie DO Unavailable [phone] Reason for Visit * Reason Onset Date Comments Refill Request 12/11/2012 Trazodone 50mg Encounter Details Date Type Department Care Team (Late st Contact Info) Description 12/11/2012 MyC Refill [address], [address] [place] [address] [place] [address] [place] [address] Refill Request (Trazodone 50mg) Social History Tobacco Use Types Packs/Day Years Used Date Smoking Tobacco: Former Cigarettes Q uit: 06/21/1973 Smokeless Tobacco: Former Alcohol Use Standard Drinks/Week Comments Yes 0 (1 standard drink = 0.6 oz pur e alcohol) rarely Comments No Sex and Gender Information Value Date Recorded Sex Assigned at Female 08/17/2018 7:56 AM EDGER TAILER Legal Sex Female 4:24 AM EDGER TAILER Gender Identity Female 08/17/2018 7:56 AM EDGER TAILER Sexual Orientation Straight 08/17/2018 7: 56 AM EDGER TAILER documented as of this encounter Miscellaneous Notes [...] MG tablet [Esperanza Gatica MD] Preferred pharmacy: [id number] Comment: documented in this encounter Plan of Treatment Upcoming Encounters Date Type Department Care Team (Late st Contact Info) Description 09/07/2024 10:00 AM CDT Office Visit [facility] [address] [place] [phone] Fransisco Eddy MD [address] [place] [address] [phone] 03/29/2025 3:40 PM CDT Office Visit [address] [phone] Alfreda Ray PA-C [address] [place] [address] [phone] documented as of this encounter Visit Diagnoses Diagnosis Insomnia, unspecified- Primary documented in this encounter Additional Health Concerns Infection Onset Date Last Indicated Resolved Time Rule Out COVID-19 05/08/2021 05/08/2021 05/09/2021 9:08 PM EDGER TAILER documented as of this encounter Care Teams Jig Operator Relationship Specialty Start Date End Date Esperanza Gatica MD PCP - General Family Practice 10/13/11 12/29/21 [place] [address] [place] [address] PCP - Assigned PCP 12/05/17 08/23/18 Alfreda Ray PA-C [address] [place] [address]87[address] PCP - General Family Medicine 12/30/21 [place] [address] [place] [address] Assigned PCP 12/05/17 09/30/19 [place] [address] [place] [address] Assigned PCP 10/01/19 03/02/20 [place] [address] [place] [address] Assigned PCP 03/03/20 05/25/20 [place] [address] [place] [address] Assigned PCP 05/26/20 09/28/20 [place] [address] [place] [address] Assigned PCP 09/29/20 07/31/22 eJsú[place] [address] [place] [address] Assigned Musculoskeletal Provider 10/20/20 04/17/22 Alfreda Ray PA-C [address] [place] [address] 90048 Referring Physician Family Medicine 12/31/21 Katrni Orellana PA-C [address] [place] [address]27 Physician Exchange Trouble Shooter Dermatology 12/31/21 Shanna Vang PA-C [address] [place] [address] 09696 Assigned Cancer Care Provider 01/10/22 Fransisco Eddy MD [address] [place] [address] 75092 Assigned Rheumatology Provider 05/09/22 [place] [address] [place] [address] Assigned Pain Medication Provider 06/29/22 09/04/22 [place] [address] [place] [address] Assigned PCP 08/15/22 08/28/22 Katrin Orellana PA-C [address] [place] [address] 41583 Assigned Surgical Provider 08/15/22 02/10/24 Cristina Hsieh [facility] [address] [place] [address] LISBETH HERNANDEZ [address] Pharmacist Pharmacist 09/07/22 Alfreda Ray PA-C [address] [place] [address] 40774 Assigned Pain Medication Provider 09/05/22 09/10/23 Alfreda Ray PA-C [address] [place] [address] 17586 Assigned PCP 08/29/22 Cristina Hsieh, [facility] [address] [place] [address] 57029 Assigned MTM Pharmacist 09/26/22 Dakota Tatum MD [address] [place] [address] 55904 Cardiovascular Disease 03/25/23 Dakota Tatum MD [address] [place] [address] 63818 Assigned Heart and Vascular Provider 05/01/23 [place] [address] [address] Assigned Musculoskeletal Provider 04/12/24 documented as of this encounter
--- OUTSIDE RECORDS SUMMARY | 2024-06-23 00:28 | XMS_ITS | Encounter Summary ---
Author Organization [place] Address [address] [place] [address]90 Care Team Providers Care Paint Tester Name Role Phone Esperanza Gatica MD Primary Care Provider + Esperanza Gatica MD Unavailable +[phone] Esperanza Gatica MD Unavailable +[phone] Esperanza Gatica MD Unavailable +[phone] Esperanza Gatica MD Unavailable +[phone] Esperanza Gatica MD Unavailable +[phone] Esperanza Gatica MD Unavailable +[phone] Jesús Orourke MD Unavailable Alfreda RayC Primary Care Provider + Alfreda Ray PA-C Unavailable + [phone] Katrin Orellana PA-C Unavailable +[phone] Shanna VangC Unavailable +[phone] Fransisco Eddy MD Unavailable +[phone] Esperanza Gatica MD Unavailable +[phone] Esperanza Gatica MD Unavailable +[phone] Katrin Orellana PA-C Unavailable Cristina Hsieh [facility] Unavailable Ho Raymustapha Liu PA-C Unavailable +[phone] Alfreda Ray Alexa KING Unavailable +[phone] Cristina Hsieh [facility] Unavailable [phone] Dakota Tatum MD Unavailable Dakota Tatum MD Unavailable [phone] Srinivas Marie DO Unavailable [phone] Reason for Visit * Reason Onset Date Comments Refill Request 01/01/2013 ultram Encounter Details Date Type Department Care Team (Late st Contact Info) Description 01/01/2013 MyC Refill M [address], [address] [place] [address] [place] [address] [place] [address] Refill Request (ultram) Social History Tobacco Use Types Packs/Day Years Used Date Smoking Tobacco: Former Cigarettes Q uit: 06/21/1973 Smokeless Tobacco: Former Alcohol Use Standard Drinks/Week Comments Yes 0 (1 standard drink = 0.6 oz pur e alcohol) rarely Comments No Sex and Gender Information Value Date Recorded Sex Assigned at Female 08/17/2018 7:56 AM COMMUNITY WORKER Legal Sex Female 4:24 AM COMMUNITY WORKER Gender Identity Female 08/17/2018 7:56 AM COMMUNITY WORKER Sexual Orientation Straight 08/17/2018 7: 56 AM COMMUNITY WORKER documented as of this encounter Miscellaneous [...] MG tablet [Esperanza Gatica MD] Preferred pharmacy: [id number] Comment: Sent from my iPad documented in this encounter Plan of Treatment Upcoming Encounters Date Type Department Care Team (Late st Contact Info) Description 09/07/2024 10:00 AM CDT Office Visit [facility] [address] [phone] Fransisco Eddy MD [address] [place] [address] [phone] 03/29/2025 3:40 PM CDT Office Visit [address] [phone] Alfreda Ray PA-C [address] [place] [address] [phone] documented as of this encounter Visit Diagnoses Diagnosis Knee pain- Primary Pain in joint, lower leg documented in this encounter Additional Health Concerns Infection Onset Date Last Indicated Resolved Time Rule Out COVID-19 05/08/2021 05/08/2021 05/09/2021 9:08 PM COMMUNITY WORKER documented as of this encounter Care Teams Paint Tester Relationship Specialty Start Date End Date Esperanza Gatica MD PCP - General Family Practice 10/13/11 12/29/21 [place] [address] [place] [address] PCP - Assigned PCP 12/05/17 08/23/18 Alfreda Ray PA-C [address] [place] [address] 46765 PCP - General Family Medicine 12/30/21 [place] [address] [place] [address] Assigned PCP 12/05/17 09/30/19 [place] [address] [place] [address] Assigned PCP 10/01/19 03/02/20 [place] [address] [place] [address] Assigned PCP 03/03/20 05/25/20 [place] [address] [place] [address] Assigned PCP 05/26/20 09/28/20 [place] [address] [place] [address] Assigned PCP 09/29/20 07/31/22 Jesú[place] [address] [place] [address] Assigned Musculoskeletal Provider 10/20/20 04/17/22 Alfreda Ray PA-C [address] [place] [address] 9[address]79 Referring Physician Family Medicine 12/31/21 Katrin Orellana PA-C [address] [place] [address]84 Physician Senior Benefits Specialist Dermatology 12/31/21 Shanna Vang PA-C [address] [place] [address] 86737 Assigned Cancer Care Provider 01/10/22 Fransisco Eddy MD [address] [place] [address]8747 Assigned Rheumatology Provider 05/09/22 [place] [address] [place] [address] Assigned Pain Medication Provider 06/29/22 09/04/22 [place] [address] [place] [address] Assigned PCP 08/15/22 08/28/22 Katrin Orellana PA-C [address] [place] [address] 85460 Assigned Surgical Provider 08/15/22 02/10/24 Cristina Hsieh [facility] [address] [facility] LISBETH HERNANDEZ [address] Pharmacist Pharmacist 09/07/22 Alfreda Ray PA-C [address] [place] [address] Assigned Pain Medication Provider 09/05/22 09/10/23 Alfreda Ray PA-C [address] [place] [address] 18963 Assigned PCP 08/29/22 Cristina Hsieh, [facility] [address] [place] [address] 36545 Assigned MTM Pharmacist 09/26/22 Dakota Tatum MD [address] [place] [address] 85360 Cardiovascular Disease 03/25/23 Dakota Tatum MD [address] [place] [address] 60071 Assigned Heart and Vascular Provider 05/01/23 [place] [address] [address] Assigned Musculoskeletal Provider 04/12/24 documented as of this encounter
--- OUTSIDE RECORDS SUMMARY | 2024-06-23 00:28 | XMS_ITS | Encounter Summary ---
Author Organization [place] Address [address] [place] [address] Care Team Providers Care Creative Services Manager Name Role Phone Esperanza Gatica MD Primary Care Provider + Esperanza Gatica MD Unavailable +[phone] Esperanza Gatica MD Unavailable +[phone] Esperanza Gatica MD Unavailable +[phone] Esperanza Gatica MD Unavailable +161 Esperanza Gatica MD Unavailable +315 Esperanza Gatica MD Unavailable +[phone] Jesús Orourke MD Unavailable Alfreda RayC Primary Care Provider + Alfreda Ray PA-C Unavailable + [phone] Katrin Orellana PA-C Unavailable [phone] Shanna VangC Unavailable +[phone] Fransisco Eddy MD Unavailable +[phone] Esperanza Gatica MD Unavailable +[phone] Esperanza Gatica MD Unavailable +[phone] Katrin Orellana PA-C Unavailable Cristina Hsieh [facility] Unavailable Cory Alfreda Liu PA-C Unavailable +[phone] Alfreda Ray Alexa KING Unavailable +[phone] Cristina Hsieh [facility] Unavailable Dakota Tatum MD Unavailable Dakota Tatum MD Unavailable Srinivas Marie DO Unavailable [phone] Reason for Visit * Reason Onset Date Comments Refill Request 10/23/2012 Zocor 20mg Encounter Details Date Type Department Care Team (Late st Contact Info) Description 10/23/2012 MyC Refill M [address], [facility] [address] [place] [address] [place] [address] [place] [address] Refill Request (Zocor 20mg) Social History Tobacco Use Types Packs/Day Years Used Date Smoking Tobacco: Former Cigarettes Q uit: 06/21/1973 Smokeless Tobacco: Former Alcohol Use Standard Drinks/Week Comments Yes 0 (1 standard drink = 0.6 oz pur e alcohol) rarely Comments No Sex and Gender Information Value Date Recorded Sex Assigned at Female 08/17/2018 7:56 AM ADOPTION AGENT Legal Sex Female 4:24 AM ADOPTION AGENT Gender Identity Female 08/17/2018 7:56 AM ADOPTION AGENT Sexual Orientation Straight 08/17/2018 7: 56 AM ADOPTION AGENT documented as of this encounter Miscellaneous Notes [...] Rinaldi - 10/24/2012 7:44 AM CDTMessage from Meitu: Original authorizing provider: MD Alexandria Brannon would like a refill of the following medications: simvastatin (ZOCOR) 20 MG tablet [Esperanza Gatica MD] Preferred pharmacy: [id number] Comment: Sent from [employer] documented in this encounter Plan of Treatment Upcoming Encounters Date Type Department Care Team (Late st Contact Info) Description 09/07/2024 10:00 AM CDT Office Visit [facility] [address] [phone] Fransisco Eddy MD [address] [place] [address] 945135 03/29/2025 3:40 PM CDT Office Visit [address] [phone] Alfreda Ray PA-C [address] [place] [address] [phone] documented as of this encounter Visit Diagnoses Diagnosis Hyperlipidemia LDL goal <160- Primary Other and unspecified hyperlipidemia documented in this encounter Additional Health Concerns Infection Onset Date Last Indicated Resolved Time Rule Out COVID-19 05/08/2021 05/08/2021 05/09/2021 9:08 PM ADOPTION AGENT documented as of this encounter Care Teams Creative Services Manager Relationship Specialty Start Date End Date Esperanza Gatica MD PCP - General Family Practice 10/13/11 12/29/21 [place] [address] [place] [address] PCP - Assigned PCP 12/05/17 08/23/18 Alfreda Ray PA-C [address] [place] [address] 8[address]87 PCP - General Family Medicine 12/30/21 [place] [address] [place] [address] Assigned PCP 12/05/17 09/30/19 [place] [address] [place] [address] Assigned PCP 10/01/19 03/02/20 [place] [address] [place] [address] Assigned PCP 03/03/20 05/25/20 [place] [address] [place] [address] Assigned PCP 05/26/20 09/28/20 [place] [address] [place] GARCIA [address] Assigned PCP 09/29/20 07/31/22 [place] [address] [place] [address] Assigned Musculoskeletal Provider 10/20/20 04/17/22 Alfreda Ray PA-C [address] [place] [address] 550102 Referring Physician Family Medicine 12/31/21 Katrin Orellana PA-C [address] [place] [address] 492485 Physician Linen Keeper Dermatology 12/31/21 Shanna Vang PA-C [address] 783324 Assigned Cancer Care Provider 01/10/22 Fransisco Eddy MD [address] [place] [address] 199435 Assigned Rheumatology Provider 05/09/22 [place] [address] [place] [place]ARC[place] [address] Assigned Pain Medication Provider 06/29/22 09/04/22 [place] [address] [place] [place] [address] Assigned PCP 08/15/22 08/28/22 Katrin Orellana PA-C [address] [facility] [address] [place] [address] Assigned Surgical Provider 08/15/22 02/10/24 Cristina Hsieh [facility] [address] [facility] LISBETH HERNANDEZ [address] Pharmacist Pharmacist 09/07/22 Alfreda Ray PA-C [address] [place] [address] 461502 Assigned Pain Medication Provider 09/05/22 09/10/23 Alfreda Ray PA-C [address] [place] [address] 513592 Assigned PCP 08/29/22 Cristina Hsieh [facility] [address] [address] Assigned MTM Pharmacist 09/26/22 Dakota Tatum MD [address] [place] [address] Cardiovascular Disease 03/25/23 Dakota Tatum MD [address] [place] [address] Assigned Heart and Vascular Provider 05/01/23 [place] [address] [address] [place] [address] Assigned Musculoskeletal Provider 04/12/24 documented as of this encounter
--- OUTSIDE RECORDS SUMMARY | 2024-06-23 00:28 | XMS_ITS | Encounter Summary ---
Author Organization [place] Address [address] [place] [address] Care Team Providers Care Pc Network Technician Name Role Phone Esperanza Gatica MD Primary Care Provider + Esperanza Gatica MD Unavailable +[phone] Esperanza Gatica MD Unavailable +[phone] Esperanza Gatica MD Unavailable +[phone] Esperanza Gatica MD Unavailable +307 Esperanza Gatica MD Unavailable +[phone] Esperanza Gatica MD Unavailable +[phone] Jesús Orourke MD Unavailable Alfreda RayC Primary Care Provider + Alfreda Ray PA-C Unavailable + [phone] Katrin Orellana PA-C Unavailable +[phone] Shanna VangC Unavailable +[phone] Fransisco Eddy MD Unavailable +[phone] Esperanza Gatica MD Unavailable +[phone] Esperanza Gatica MD Unavailable +[phone] Katrin Orellana PA-C Unavailable [phone] Cristina Hsieh [facility] Unavailable Cory Alfreda Liu PA-C Unavailable +[phone] Alfreda Ray Alexa KING Unavailable +[phone] Cristina Hsieh [facility] Unavailable [phone] Dakota Tatum MD Unavailable Dakota Tatum MD Unavailable [phone] Srinivas Marie DO Unavailable Reason for Visit * Reason Onset Date Comments Refill Request 11/06/2012 Ambien 10mg Encounter Details Date Type Department Care Team (Late st Contact Info) Description 11/06/2012 MyC Refill M [address], [facility] [address] [place] [address] [place] [address] [place] [address] Refill Request (Ambien 10mg) Social History Tobacco Use Types Packs/Day Years Used Date Smoking Tobacco: Former Cigarettes Q uit: 06/21/1973 Smokeless Tobacco: Former Alcohol Use Standard Drinks/Week Comments Yes 0 (1 standard drink = 0.6 oz pur e alcohol) rarely Comments No Sex and Gender Information Value Date Recorded Sex Assigned at Female 08/17/2018 7:56 AM HEALTH COMMISSIONER Legal Sex Female 4:24 AM HEALTH COMMISSIONER Gender Identity Female 08/17/2018 7:56 AM HEALTH COMMISSIONER Sexual Orientation Straight 08/17/2018 7: 56 AM HEALTH COMMISSIONER documented as of this encounter Miscellaneous Notes [...] MG tablet [Esperanza Gatica MD] Preferred pharmacy: [facility] #[id number] - [address] Comment: Sent from my iPad documented in this encounter Plan of Treatment Upcoming Encounters Date Type Department Care Team (Late st Contact Info) Description 09/07/2024 10:00 AM CDT Office Visit [facility] [address] [place] [phone] Fransisco Eddy MD [address] [place] [address] 03/29/2025 3:40 PM CDT Office Visit [address] [phone] Alfreda Ray PA-C [address] [place] [address] [phone] documented as of this encounter Visit Diagnoses Diagnosis Insomnia, unspecified documented in this encounter Additional Health Concerns Infection Onset Date Last Indicated Resolved Time Rule Out COVID-19 05/08/2021 05/08/2021 05/09/2021 9:08 PM HEALTH COMMISSIONER documented as of this encounter Care Teams Pc Network Technician Relationship Specialty Start Date End Date Esperanza Gatica MD PCP - General Family Practice 10/13/11 12/29/21 [place] [address] [place] [address] PCP - Assigned PCP 12/05/17 08/23/18 Alfreda Ray PA-C [address] [place] [address]51 PCP - General Family Medicine 12/30/21 [place] [address] [place] [address] Assigned PCP 12/05/17 09/30/19 [place] [address] [place] [address] Assigned PCP 10/01/19 03/02/20 [place] [address] [place] [address] Assigned PCP 03/03/20 05/25/20 [place] [address] [place] [address] Assigned PCP 05/26/20 09/28/20 [place] [address] [place] [address] Assigned PCP 09/29/20 07/31/22 [place] [address] [place] [address] Assigned Musculoskeletal Provider 10/20/20 04/17/22 Alfreda Ray PA-C [address] [place] [address] Referring Physician Family Medicine 12/31/21 Katrin Orellana PA-C [address] [place] [address] Physician Refrigeration Operator Dermatology 12/31/21 Shanna Vang PA-C [address] [place] [address] 552194 Assigned Cancer Care Provider 01/10/22 Fransisco Eddy MD [address] [place] [address] 284575 Assigned Rheumatology Provider 05/09/22 [place] [address] [place] [address] Assigned Pain Medication Provider 06/29/22 09/04/22 [place] [address] [place] [address] Assigned PCP 08/15/22 08/28/22 Katrin Orellana PA-C [address] [place] [address] 367725 Assigned Surgical Provider 08/15/22 02/10/24 Cristina Hsieh [facility] [address] [facility] LISBETH HERNANDEZ [address] Pharmacist Pharmacist 09/07/22 Alfreda Ray PA-C [address] [place] [address] Assigned Pain Medication Provider 09/05/22 09/10/23 Alfreda Ray PA-C [address] [place] [address] 124442 Assigned PCP 08/29/22 Cristina Hsieh, [facility] [address] [place] [address] 72099 Assigned MTM Pharmacist 09/26/22 Dakota Tatum MD [address] [place] [address] 048945 Cardiovascular Disease 03/25/23 Dakota Tatum MD [address] [place] [address] 6[address]85 Assigned Heart and Vascular Provider 05/01/23 [place] [address] [place] , [address] [address] Assigned Musculoskeletal Provider 04/12/24 documented as of this encounter
--- OUTSIDE RECORDS SUMMARY | 2024-06-23 00:28 | XMS_ITS | Encounter Summary ---
Author Organization [place] Address [address] [place] [address] Care Team Providers Care Pear Picker Name Role Phone Esperanza Gatica MD Primary Care Provider + Esperanza Gatica MD Unavailable +[phone] Esperanza Gatica MD Unavailable +[phone] Esperanza Gatica MD Unavailable +[phone] Esperanza Gatica MD Unavailable +267 Esperanza Gatica MD Unavailable +588 Esperanza Gatica MD Unavailable +[phone] Jesús Orourke MD Unavailable Alfreda RayC Primary Care Provider + Alfreda Ray PA-C Unavailable + [phone] Katrin Orellana PA-C Unavailable +[phone] Shanna VangC Unavailable +[phone] Fransisco Eddy MD Unavailable +[phone] Esperanza Gatica MD Unavailable +[phone] Esperanza Gatica MD Unavailable +[phone] Katrin Orellana PA-C Unavailable Cristina Hsieh [facility] Unavailable Alfreda Ray Alexa KING Unavailable +[phone] Alfreda Ray Alexa KING Unavailable +[phone] Cristina Hsieh [facility] Unavailable +[phone] Dakota Tatum MD Unavailable [phone] Dakota Tatum MD Unavailable [phone] Srinivas Marie DO Unavailable [phone] Reason for Visit * Reason Onset Date Comments Refill Request 07/31/2013 tramadol Encounter Details Date Type Department Care Team (Late st Contact Info) Description 07/31/2013 MyC Refill [address], [facility] [address] [place] [address] [place] [address] [place] [address] Refill Request (tramadol) Social History Tobacco Use Types Packs/Day Years Used Date Smoking Tobacco: Former Cigarettes Q uit: 06/21/1973 Smokeless Tobacco: Former Alcohol Use Standard Drinks/Week Comments Yes 0 (1 standard drink = 0.6 oz pur e alcohol) rarely Comments No Sex and Gender Information Value Date Recorded Sex Assigned at Female 08/17/2018 7:56 AM COLLECTIONS ANALYST Legal Sex Female 4:24 AM COLLECTIONS ANALYST Gender Identity Female 08/17/2018 7:56 AM COLLECTIONS ANALYST Sexual Orientation Straight 08/17/2018 7: 56 AM COLLECTIONS ANALYST documented as of this encounter Miscellaneous Notes * Telephone Encounter - Diane Macedo - 07/31/2013 2:16 PM CST Does not meet standard requirement for RN refill protocol. Medication: tramadol Last OV: 07/14/12 Provider: MD ZAIDA Reason for visit: HTN, CKD, etc... Last refill: 06/22/13 #30 Please refill if appropriate. Thank you! Diane Macedo RN [facility] Work Force ECTIONS ANALYST * Telephone Encounter - HellenDiane cook - 07/31/2013 2:16 PM CSTMessage from MyChart: Original authorizing provider: MD Alexandria Brannon Zenobia Leeann would like a refill of the following medications: traMADol (ULTRAM) 50 MG tablet [Esperanza Gatica MD] Preferred pharmacy: [id number] Comment: ECTIONS ANALYST documented in this encounter Plan of Treatment Upcoming Encounters Date Type Department Care Team (Late st Contact Info) Description 09/07/2024 10:00 AM CDT Office Visit [address] [phone] Fransisco Eddy MD [address] [place] [address] 323215 03/29/2025 3:40 PM CDT Office Visit [address] [phone] Alfreda Ray PA-C [address] [place] [address] [phone] documented as of this encounter Visit Diagnoses Diagnosis Knee pain Pain in joint, lower leg documented in this encounter Additional Health Concerns Infection Onset Date Last Indicated Resolved Time Rule Out COVID-19 05/08/2021 05/08/2021 05/09/2021 9:08 PM COLLECTIONS ANALYST documented as of this encounter Care Teams Pear Picker Relationship Specialty Start Date End Date Esperanza Gatica MD PCP - General Family Practice 10/13/11 12/29/21 [place] [address] [place] [address] PCP - Assigned PCP 12/05/17 08/23/18 Alfreda Ray PA-C [address] [place] [address]63 PCP - General Family Medicine 12/30/21 [place] [address] [place] [address] Assigned PCP 12/05/17 09/30/19 [place] [address] [place] [address] Assigned PCP 10/01/19 03/02/20 [place] [address] [place] [address] Assigned PCP 03/03/20 05/25/20 [place] [address] [place] [address] Assigned PCP 05/26/20 09/28/20 [place] [address] [place] [address] Assigned PCP 09/29/20 07/31/22 [place] [address] [place], [place] [address] Assigned Musculoskeletal Provider 10/20/20 04/17/22 Alfreda Ray PA-C [address] [place] [address] Referring Physician Family Medicine 12/31/21 Katrin Orellana PA-C [address] [place] [address]99 Physician Hotel Housekeeper Dermatology 12/31/21 Shanna Vang PA-C [address] [place] [address] 609764 Assigned Cancer Care Provider 01/10/22 Fransisco Eddy MD [address] [place] [address] 208305 Assigned Rheumatology Provider 05/09/22 [place] [address] [place] [address] Assigned Pain Medication Provider 06/29/22 09/04/22 [place] [address] [address] [facility] [place] [address] Assigned PCP 08/15/22 08/28/22 Katrin Orellana PA-C [address] [place] [address] 513385 Assigned Surgical Provider 08/15/22 02/10/24 Cristina Hsieh, [facility] [address] [facility] [place] [address] Pharmacist Pharmacist 09/07/22 Alfreda Ray PA-C [address] [place] [address] Assigned Pain Medication Provider 09/05/22 09/10/23 Alfreda Ray PA-C [address] [place] [address] Assigned PCP 08/29/22 Cristina Hsieh, [facility] [address] [address] Assigned MTM Pharmacist 09/26/22 Dakota Tatum MD [address] [place] [address]205 Cardiovascular Disease 03/25/23 Dakota Tatum MD [address] [place] [address] Assigned Heart and Vascular Provider 05/01/23 [place] [address] [address], [address] [address] Assigned Musculoskeletal Provider 04/12/24 documented as of this encounter
--- OUTSIDE RECORDS SUMMARY | 2024-06-23 00:28 | XMS_ITS | Encounter Summary ---
Author Organization [place] Address [address] [place] [address] Care Team Providers Care Roll Threader Operator Name Role Phone Esperanza Gatica MD Primary Care Provider + Esperanza Gatcia MD Unavailable +[phone] Esperanza Gatica MD Unavailable +[phone] Esperanza Gatica MD Unavailable +[phone] Esperanza Gatica MD Unavailable +[phone] Esperanza Gatica MD Unavailable +[phone] Esperanza Gatica MD Unavailable +[phone] Jesús Orourke MD Unavailable Alfreda RayC Primary Care Provider + Alfreda Ray PA-C Unavailable + [phone] Katrin Orellana PA-C Unavailable +[phone] Shanna VangC Unavailable +[phone] Fransisco Eddy MD Unavailable +[phone] Esperanza Gatica MD Unavailable +[phone] Esperanza Gatica MD Unavailable +[phone] Katrin Orellana PA-C Unavailable Cristina Hsieh [facility] Unavailable Cory Alfreda Liu PA-C Unavailable +[phone] Ho Raymustapha Liu PA-C Unavailable +[phone] Cristina Hsieh [facility] Unavailable +[phone] Dakota Tatum MD Unavailable [phone] Dakota Tatum MD Unavailable [phone] Srinivas Marie DO Unavailable [phone] Reason for Visit * Reason Onset Date Comments Medication Question 07/01/2012 Ambien and T razodone Encounter Details Date Type Department Care Team (Late st Contact Info) Description 07/01/2012 MyC Medical Advice [address], [address] [place] [address] [place] [address] [place] [address] Medication Question (Ambien and Trazodone) Social History Tobacco Use Types Packs/Day Years Used Date Smoking Tobacco: Former Cigarettes Q uit: 06/21/1973 Smokeless Tobacco: Former Alcohol Use Standard Drinks/Week Comments Yes 0 (1 standard drink = 0.6 oz pur e alcohol) rarely Comments No Sex and Gender Information Value Date Recorded Sex Assigned at Female 08/17/2018 7:56 AM LOGGING TRACTOR OPERATOR Legal Sex Female 4:24 AM LOGGING TRACTOR OPERATOR Gender Identity Female 08/17/2018 7:56 AM LOGGING TRACTOR OPERATOR Sexual Orientation Straight 08/17/2018 7: 56 AM LOGGING TRACTOR OPERATOR documented as of this encounter Miscellaneous Notes * Telephone Encounter - Esperanza Gatica MD - 07/01/2012 1:43 PM LOGGING TRACTOR OPERATOR I recommend she try to stop the ambien 5mg after another week or so, and she can always take 2 of the trazodone while weaning off the ambien. Let us know how she is doing in the next week again. ING TRACTOR OPERATOR documented in this encounter Plan of Treatment Upcoming Encounters Date Type Department Care Team (Late st Contact Info) Description 09/07/2024 10:00 AM CDT Office Visit [facility] [address] [place] [phone] Fransisco Eddy MD [address] [place] [address] 03/29/2025 3:40 PM CDT Office Visit [address] [phone] Alfreda Ray PA-C [address] [place] [address] 977302 documented as of this encounter Visit Diagnoses Not on filedocumented in this encounter Additional Health Concerns Infection Onset Date Last Indicated Resolved Time Rule Out COVID-19 05/08/2021 05/08/2021 05/09/2021 9:08 PM LOGGING TRACTOR OPERATOR documented as of this encounter Care Teams Roll Threader Operator Relationship Specialty Start Date End Date Esperanza Gatica MD PCP - General Family Practice 10/13/11 12/29/21 [place] [address] [place]ARCIA [address] PCP - Assigned PCP 12/05/17 08/23/18 Alfreda Ray PA-C [address] [place] [address] PCP - General Family Medicine 12/30/21 [place] [address] [place] [address] Assigned PCP 12/05/17 09/30/19 [place] [address] [place] [address] Assigned PCP 10/01/19 03/02/20 [place] [address] [place] [address] Assigned PCP 03/03/20 05/25/20 [place] [address] [place] [address] Assigned PCP 05/26/20 09/28/20 [place] [address] [place] [address] Assigned PCP 09/29/20 07/31/22 [place] [address] [place] [address] Assigned Musculoskeletal Provider 10/20/20 04/17/22 Alfreda Ray PA-C [address] [place] [address] 152202 Referring Physician Family Medicine 12/31/21 Katrin Orellana PA-C [address] [place] [address] Physician Application Assistant Dermatology 12/31/21 Shanna Vang PA-C [address] [place] [address] Assigned Cancer Care Provider 01/10/22 Fransisco Eddy MD [address] [place] [address] 88 [place] [address] Assigned Rheumatology Provider 05/09/22 [place] [address] [facility] [place] [address] Assigned Pain Medication Provider 06/29/22 09/04/22 [place] [address] [address] [place] [address] Assigned PCP 08/15/22 08/28/22 Katrin Orellana PA-C [address] [place] [address] 16698 Assigned Surgical Provider 08/15/22 02/10/24 [place] [address] [place] [address] [place] [address] Pharmacist Pharmacist 09/07/22 Alfreda Ray PA-C [address] [place] [address]197 Assigned Pain Medication Provider 09/05/22 09/10/23 Alfreda Ray PA-C [address] [place] [address] Assigned PCP 08/29/22 Cristina Hsieh [facility] 1600 [facility] 101 [place] [address] Assigned MTM Pharmacist 09/26/22 Dakota Tatum MD [address] [place] [address] Cardiovascular Disease 03/25/23 Dakota Tatum MD [address] [place] [address] Assigned Heart and Vascular Provider 05/01/23 [place] [address] [address], [facility] [address] [place] [address] Assigned Musculoskeletal Provider 04/12/24 documented as of this encounter
--- OUTSIDE RECORDS SUMMARY | 2024-06-23 00:28 | XMS_ITS | Encounter Summary ---
Author Organization [place] Address [address] [place] [address] Care Team Providers Care Adjunct Communications Faculty Member Name Role Phone Esperanza Gatica MD Primary Care Provider + Esperanza Gatica MD Unavailable +[phone] Esperanza Gatica MD Unavailable +[phone] Esperanza Gatica MD Unavailable +[phone] Esperanza Gatica MD Unavailable +[phone] Esperanza Gatica MD Unavailable +[phone] Esperanza Gatica MD Unavailable +[phone] Jesús Orourke MD Unavailable Alfreda RayC Primary Care Provider + Alfreda Ray PA-C Unavailable + [phone] Katrin Orellana PA-C Unavailable +[phone] Shanna VangC Unavailable +[phone] Fransisco Eddy MD Unavailable +[phone] Esperanza Gatica MD Unavailable +[phone] Esperanza Gatica MD Unavailable +[phone] Katrin Orellana PA-C Unavailable Cristina Hsieh [facility] Unavailable Cory Alfreda Liu PA-C Unavailable +[phone] Ho Raymustapha Liu PA-C Unavailable +[phone] Cristina Hsieh [facility] Unavailable Dakota Tatum MD Unavailable +[phone] Dakota Tatum MD Unavailable [phone] Srinivas Marie DO Unavailable [phone] Reason for Visit * Reason Onset Date Comments Hip Pain 07/08/2012 Hip pain Encounter Details Date Type Department Care Team (Late st Contact Info) Description 07/08/2012 MyC Medical Advice [address], [address] [place] [address] [place] [address] [place] [address] Hip Pain (Hip pain) Social History Tobacco Use Types Packs/Day Years Used Date Smoking Tobacco: Former Cigarettes Q uit: 06/21/1973 Smokeless Tobacco: Former Alcohol Use Standard Drinks/Week Comments Yes 0 (1 standard drink = 0.6 oz pur e alcohol) rarely Comments No Sex and Gender Information Value Date Recorded Sex Assigned at Female 08/17/2018 7:56 AM SCREED PERSON Legal Sex Female 4:24 AM SCREED PERSON Gender Identity Female 08/17/2018 7:56 AM SCREED PERSON Sexual Orientation Straight 08/17/2018 7: 56 AM SCREED PERSON documented as of this encounter Miscellaneous Notes * Telephone Encounter - Esperanza Gatica MD - 07/08/2012 10:42 AM SCREED PERSON Ok to take flexeril, faxed and she can take the vicodin, which she was given 90 in May. Is she out?Please make appt for hip pain if not improving ED PERSON documented in this encounter Plan of Treatment Upcoming Encounters Date Type Department Care Team (Late st Contact Info) Description 09/07/2024 10:00 AM CDT Office Visit [facility] [address] [place] [phone] Fransisco Eddy MD [address] [place] [address] 03/29/2025 3:40 PM CDT Office Visit [address] [phone] Alfreda Ray PA-C [address] [place] [address] 330622 documented as of this encounter Visit Diagnoses Diagnosis Hip pain- Primary Pain in joint, pelvic region and thigh documented in this encounter Additional Health Concerns Infection Onset Date Last Indicated Resolved Time Rule Out COVID-19 05/08/2021 05/08/2021 05/09/2021 9:08 PM SCREED PERSON documented as of this encounter Care Teams Adjunct Communications Faculty Member Relationship Specialty Start Date End Date Esperanza Gatica MD PCP - General Family Practice 10/13/11 12/29/21 [place] [address] [place] [address] PCP - Assigned PCP 12/05/17 08/23/18 Alfreda Ray PA-C [address] [place] [address] 649872 PCP - General Family Medicine 12/30/21 [place] [address] [place] [address] Assigned PCP 12/05/17 09/30/19 [place] [address] [place] [address] Assigned PCP 10/01/19 03/02/20 [place] [address] [place] [address] Assigned PCP 03/03/20 05/25/20 [place] [address] [place]ARC[place] [address] Assigned PCP 05/26/20 09/28/20 [place] [address] [place] [address] Assigned PCP 09/29/20 07/31/22 [place] [address] [place] [address] [address] Assigned Musculoskeletal Provider 10/20/20 04/17/22 Alfreda Ray PA-C [address] [place] [address] 494922 Referring Physician Family Medicine 12/31/21 Katrin Orellana PA-C [address] [place] [address] Physician Cryptography Teacher Dermatology 12/31/21 Shanna Vang PA-C [address] [place] [address]558 Assigned Cancer Care Provider 01/10/22 Fransisco Eddy MD [address] [place] [address] 90671 Assigned Rheumatology Provider 05/09/22 [place] [address] [place] [address] Assigned Pain Medication Provider 06/29/22 09/04/22 [place] [address] [place] [address] Assigned PCP 08/15/22 08/28/22 Katrin Orellana PA-C [address] [place] [address] Assigned Surgical Provider 08/15/22 02/10/24 Cristina Hsieh [place] [address] [facility] [place] [address] Pharmacist Pharmacist 09/07/22 Alfreda Ray PA-C [address] [place] [address]692 Assigned Pain Medication Provider 09/05/22 09/10/23 Alfreda Ray PA-C [address] [place] [address] 8[address]28 Assigned PCP 08/29/22 Cristina Hsieh [facility] [address] [address] Assigned MTM Pharmacist 09/26/22 Dakota Tatum MD [address] [place] [address] Cardiovascular Disease 03/25/23 Dakota Tatum MD [address] [place] [address]194 Assigned Heart and Vascular Provider 05/01/23 [place] [address] CELE GAST[address]UM, [address] [address] Assigned Musculoskeletal Provider 04/12/24 documented as of this encounter
--- OUTSIDE RECORDS SUMMARY | 2024-06-23 00:28 | XMS_ITS | Encounter Summary ---
Author Organization [place] Address [address] [place] [address] Care Team Providers Care Equity Director Name Role Phone Esperanza Gatica MD Primary Care Provider + Esperanza Gatica MD Unavailable +[phone] Esperanza Gatica MD Unavailable +[phone] Esperanza Gatica MD Unavailable +[phone] Esperanza Gatica MD Unavailable +656 Esperanza Gatica MD Unavailable +[phone] Esperanza Gatica MD Unavailable +[phone] Jesús Orourke MD Unavailable Alfreda RayC Primary Care Provider + Alfreda Ray PA-C Unavailable + [phone] Katrin Orellana PA-C Unavailable +[phone] Shanna VangC Unavailable +[phone] Fransisco Eddy MD Unavailable +[phone] Esperanza Gatica MD Unavailable +[phone] Esperanza Gatica MD Unavailable +[phone] Katrin Orellana PA-C Unavailable Cristina Hsieh [facility] Unavailable Cory Alfreda Liu PA-C Unavailable +[phone] Alfreda Ray Alexa KING Unavailable +[phone] Cristina Hsieh [facility] Unavailable [phone] Dakota Tatum MD Unavailable Dakota Tatum MD Unavailable [phone] Srinivas Marie DO Unavailable [phone] Reason for Visit * Reason Onset Date Comments Refill Request 09/22/2012 Ultram 50mg Encounter Details Date Type Department Care Team (Late st Contact Info) Description 09/22/2012 MyC Refill [address], [facility] 100 [place] [address] [place] [address] [place] [address] Refill Request (Ultram 50mg) Social History Tobacco Use Types Packs/Day Years Used Date Smoking Tobacco: Former Cigarettes Q uit: 06/21/1973 Smokeless Tobacco: Former Alcohol Use Standard Drinks/Week Comments Yes 0 (1 standard drink = 0.6 oz pur e alcohol) rarely Comments No Sex and Gender Information Value Date Recorded Sex Assigned at Female 08/17/2018 7:56 AM DIRECTOR DECISION SUPPORT Legal Sex Female 4:24 AM DIRECTOR DECISION SUPPORT Gender Identity Female 08/17/2018 7:56 AM DIRECTOR DECISION SUPPORT Sexual Orientation Straight 08/17/2018 7: 56 AM DIRECTOR DECISION SUPPORT documented as of this encounter Miscellaneous Notes [...] MD] Preferred pharmacy: [id number] - [place], [place] - [address] [place] [address] Comment: documented in this encounter Plan of Treatment Upcoming Encounters Date Type Department Care Team (Late st Contact Info) Description 09/07/2024 10:00 AM CDT Office Visit [address] [place] [phone] Fransisco Eddy MD [address] [place] [address] 03/29/2025 3:40 PM CDT Office Visit [address] [phone] Alfreda Ray PA-C [address] [place] [address] 558242 documented as of this encounter Visit Diagnoses Diagnosis Knee pain Pain in joint, lower leg documented in this encounter Additional Health Concerns Infection Onset Date Last Indicated Resolved Time Rule Out COVID-19 05/08/2021 05/08/2021 05/09/2021 9:08 PM DIRECTOR DECISION SUPPORT documented as of this encounter Care Teams Equity Director Relationship Specialty Start Date End Date Esperanza Gatica MD PCP - General Family Practice 10/13/11 12/29/21 [place] [address] [place] [address] PCP - Assigned PCP 12/05/17 08/23/18 Alfreda Ray PA-C [address] [place] [address] PCP - General Family Medicine 12/30/21 [place] [address] [place] [address] Assigned PCP 12/05/17 09/30/19 [place] [address] [place] [address] Assigned PCP 10/01/19 03/02/20 [place] [address] [place] [address] Assigned PCP 03/03/20 05/25/20 [place] [address] [place] [address] Assigned PCP 05/26/20 09/28/20 [place] [address] [place] [address] Assigned PCP 09/29/20 07/31/22 [place] [address] [place] [address] Assigned Musculoskeletal Provider 10/20/20 04/17/22 Alfreda Ray PA-C [address] [place] [address] Referring Physician Family Medicine 12/31/21 Katrin Orellana PA-C [address] [place] [address] Physician Family Nurse Practitioner Dermatology 12/31/21 Shanna Vang PA-C [address] [place] [address] 539024 Assigned Cancer Care Provider 01/10/22 Fransisco Eddy MD [address] [place] [address] 642785 Assigned Rheumatology Provider 05/09/22 [place] [address] [place] [address] Assigned Pain Medication Provider 06/29/22 09/04/22 [place] [address] [place] [address] Assigned PCP 08/15/22 08/28/22 Katrin Orellana PA-C [address] [place] [address] 538005 Assigned Surgical Provider 08/15/22 02/10/24 Cristina Hsieh [facility] [address] [facility] [place] [address] Pharmacist Pharmacist 09/07/22 Alfreda Ray PA-C [address] [place] [address]195 Assigned Pain Medication Provider 09/05/22 09/10/23 Alfreda Ray PA-C [address] [place] [address] 481272 Assigned PCP 08/29/22 Cristina Hsieh, [facility] [address] [facility] 101 [place] [address] Assigned MTM Pharmacist 09/26/22 Dakota Tatum MD [address] [place] [address] 178535 Cardiovascular Disease 03/25/23 Dakota Tatum MD [address] [place] [address]195 Assigned Heart and Vascular Provider 05/01/23 [place] [address] [place] , [facility] [address] [place] [address] Assigned Musculoskeletal Provider 04/12/24 documented as of this encounter
--- OUTSIDE RECORDS SUMMARY | 2024-06-23 00:29 | XMS_ITS | Encounter Summary ---
Author Organization [facility] Address [address] [place] [address] Care Team Providers Care Pulp Drier Firer Name Role Phone Esperanza Gatica MD Primary Care Provider + Esperanza Gatica MD Unavailable +[phone] Esperanza Gatica MD Unavailable +[phone] Esperanza Gatica MD Unavailable +[phone] Esperanza Gatica MD Unavailable +[phone] Esperanza Gatica MD Unavailable +[phone] Esperanza Gatica MD Unavailable +[phone] Jesús Orourke MD Unavailable Alfreda RayC Primary Care Provider + Alfreda Ray PA-C Unavailable + [phone] Katrin Orellana PA-C Unavailable +[phone] Shanna VangC Unavailable +[phone] Fransisco Eddy MD Unavailable +[phone] Esperanza Gatica MD Unavailable +[phone] Esperanza Gatica MD Unavailable +[phone] Katrin Orellana PA-C Unavailable +[phone] Cristina Hsieh [facility] Unavailable Alfreda Ray PA-C Unavailable Alfreda Ray PA-C Unavailable [phone] Cristina Hsieh [facility] Unavailable Dakota Tatum MD Unavailable Dakota Tatum MD Unavailable Srinivas Marie DO Unavailable [phone] Encounter Details Date Type Department Care Team (Late st Contact Info) Description 06/22/2012 MyC Medical Advice [address], [facility] [address] [place] [address] [facility] Social History Tobacco Use Types Packs/Day Years Used Date Smoking Tobacco: Former Cigarettes Q uit: 06/21/1973 Smokeless Tobacco: Former Alcohol Use Standard Drinks/Week Comments Yes 0 (1 standard drink = 0.6 oz pur e alcohol) rarely Comments No Sex and Gender Information Value Date Recorded Sex Assigned at Female 08/17/2018 7:56 AM CHANGE MANAGEMENT SPECIALIST Legal Sex Female 4:24 AM CHANGE MANAGEMENT SPECIALIST Gender Identity Female 08/17/2018 7:56 AM CHANGE MANAGEMENT SPECIALIST Sexual Orientation Straight 08/17/2018 7: 56 AM CHANGE MANAGEMENT SPECIALIST documented as of this encounter Plan of Treatment Upcoming Encounters Date Type Department Care Team (Late st Contact Info) Description 09/07/2024 10:00 AM CDT Office Visit [facility] [address] [phone] Fransisco Eddy MD [address] [place] [address] 03/29/2025 3:40 PM CDT Office Visit [address] [phone] Alfreda Ray PA-C [address] [place] [address]36 documented as of this encounter Visit Diagnoses Not on filedocumented in this encounter Additional Health Concerns Infection Onset Date Last Indicated Resolved Time Rule Out COVID-19 05/08/2021 05/08/2021 05/09/2021 9:08 PM CHANGE MANAGEMENT SPECIALIST documented as of this encounter Care Teams Pulp Drier Firer Relationship Specialty Start Date End Date Esperanza Gatica MD PCP - General Family Practice 10/13/11 12/29/21 [place] [address] LISBETH GARCIA 08386 PCP - Assigned PCP 12/05/17 08/23/18 Alfreda Ray PA-C [address] [place] [address] 99399 PCP - General Family Medicine 12/30/21 [place] [address] LISBETH GARCIA 15291 Assigned PCP 12/05/17 09/30/19 [place] [address] LISBETH GARCIA 22295 Assigned PCP 10/01/19 03/02/20 [place] [address] LISBETH GARCIA 50706 Assigned PCP 03/03/20 05/25/20 [place] [address] LISBETH GARCIA 23188 Assigned PCP 05/26/20 09/28/20 [place] [address] [place] [address] Assigned PCP 09/29/20 07/31/22 [place] [address] [place] [address] [place] [address] 19899 Assigned Musculoskeletal Provider 10/20/20 04/17/22 Alfreda Ray PA-C [address] [place] [address] 81283 Referring Physician Family Medicine 12/31/21 Katrin Orellana PA-C [address] [place] [address]239 Physician Business Resiliency Manager Dermatology 12/31/21 Shanna Vang PA-C [address] [address] Assigned Cancer Care Provider 01/10/22 Fransisco Eddy MD [address] [place] [address] 89665 Assigned Rheumatology Provider 05/09/22 [place] [address] [place] [address] Assigned Pain Medication Provider 06/29/22 09/04/22 [place] [address] [place] [address] Assigned PCP 08/15/22 08/28/22 Katrin Orellana PA-C [address] [place] [address] 09597 Assigned Surgical Provider 08/15/22 02/10/24 Cristina Hsieh [facility] [address] [place] [address] LISBETH HERNANDEZ [address] Pharmacist Pharmacist 09/07/22 Alfreda Ray PA-C [address] [place] [address] 538452 Assigned Pain Medication Provider 09/05/22 09/10/23 Alfreda Ray PA-C [address] [place] [address] 942022 Assigned PCP 08/29/22 Cristina Hsieh [facility] [address] [place] [address] 06471 Assigned MTM Pharmacist 09/26/22 Dakota Tatum MD [address] [place] [address] 91159 Cardiovascular Disease 03/25/23 Dakota Tatum MD [address] [place] [address] 49692 Assigned Heart and Vascular Provider 05/01/23 [place] [address] [address] Assigned Musculoskeletal Provider 04/12/24 documented as of this encounter
--- OUTSIDE RECORDS SUMMARY | 2024-06-23 00:29 | XMS_ITS | Encounter Summary ---
Author Organization [facility] Address [address] [place] [address]46 Care Team Providers Care Dairy Cattle Farm Manager Name Role Phone Ajay Dailey MD Primary Care Provider [phone] Esperanza Gatica MD Primary Care Provider + Esperanza Gatica MD Unavailable + Esperanza Gatica MD Unavailable + Esperanza Gatica MD Unavailable + Esperanza Gatica MD Unavailable + Esperanza Gatica MD Unavailable + Esperanza Gatica MD Unavailable +[phone] Jesús Orourke MD Unavailable Alfreda RayC Primary Care Provider + Alfreda Ray-Gallito Unavailable +[phone] Katrin Orellana PA-C Unavailable +[phone] Shanna Vang-C Unavailable +[phone] Fransisco Eddy MD Unavailable +[phone] Esperanza Gatica MD Unavailable +[phone] Esperanza Gatica MD Unavailable +[phone] Katrin Orellana PA-C Unavailable Cristina Hsieh [facility] Unavailable Ho Raymustapha Liu PA-C Unavailable [phone] Ho Raymustapha Liu PA-C Unavailable Cristina Hsieh [facility] Unavailable [phone] Dakota Tatum MD Unavailable [phone] Dakota Tatum MD Unavailable [phone] Srinivas Marie DO Unavailable [phone] Reason for Visit * Reason Onset Date Comments Refill Request 09/07/2011 Encounter Details Date Type Department Care Team (Late st Contact Info) Description 09/07/2011 MyC Refill [address] [phone] Ajay Dailey MD [facility] [place] [address] Refill Request Social History Tobacco Use Types Packs/Day Years Used Date Smoking Tobacco: Former Cigarettes Q uit: 06/21/1973 Smokeless Tobacco: Former Alcohol Use Standard Drinks/Week Comments Yes 0 (1 standard drink = 0.6 oz pur e alcohol) rarely Comments No Sex and Gender Information Value Date Recorded Sex Assigned at Female 08/17/2018 7:56 AM TELECOMMUNICATIONS CONSULTANT Legal Sex Female 4:24 AM TELECOMMUNICATIONS CONSULTANT Gender Identity Female 08/17/2018 7:56 AM TELECOMMUNICATIONS CONSULTANT Sexual Orientation Straight 08/17/2018 7: 56 AM TELECOMMUNICATIONS CONSULTANT documented as of this encounter Miscellaneous [...] Sosa - 09/08/2011 10:39 AM [facility] Original authorizing provider: AJAY DAILEY MD Barbara J Pellicci would like a refill of the following medications: tramadol (ULTRAM) 50 MG tablet [AAJY DAILEY MD] Preferred pharmacy: [facility] Comment: documented in this encounter Plan of Treatment Upcoming Encounters Date Type Department Care Team (Late st Contact Info) Description 09/07/2024 10:00 AM CDT Office Visit [facility] [address] [phone] Fransisco Eddy MD [address] [place] [address] [phone] 03/29/2025 3:40 PM CDT Office Visit [address] [phone] Alfreda Ray PA-C [address] [place] [address] [phone] documented as of this encounter Visit Diagnoses Diagnosis Knee pain Pain in joint, lower leg documented in this encounter Additional Health Concerns Infection Onset Date Last Indicated Resolved Time Rule Out COVID-19 05/08/2021 05/08/2021 05/09/2021 9:08 PM TELECOMMUNICATIONS CONSULTANT documented as of this encounter Care Teams Dairy Cattle Farm Manager Relationship Specialty Start Date End Date Ajay Dailey MD PCP - General Family Practice 01/29/11 10/12/11 Esperanza Gatica MD PCP - General Family Practice 10/13/11 12/29/21 [place] [address] [address] [place], L[place]BTEH [address] PCP - Assigned PCP 12/05/17 08/23/18 Alfreda Ray PA-C [address] [place] [address] 645792 PCP - General Family Medicine 12/30/21 [place] [address] LISBETH GARCIA 19924 Assigned PCP 12/05/17 09/30/19 [place] [address] LISBETH GARCIA 83574 Assigned PCP 10/01/19 03/02/20 [place] [address] LISBETH GARCIA 90861 Assigned PCP 03/03/20 05/25/20 [place] [address] LISBETH GARCIA 05494 Assigned PCP 05/26/20 09/28/20 [place] [address] LISBETH GARCIA 27675 Assigned PCP 09/29/20 07/31/22 [place] [address] [place] LISBETH GALAN 18283 Assigned Musculoskeletal Provider 10/20/20 04/17/22 Alfreda Ray PA-C [address] [place] [address] 299792 Referring Physician Family Medicine 12/31/21 Katrin Orellana PA-C [address] [place] [address] 99340 Physician Rn Manager Dermatology 12/31/21 Shanna Vang PA-C [address] [place] [address] 291354 Assigned Cancer Care Provider 01/10/22 Fransisco Eddy MD [address] [place] [address] 036535 Assigned Rheumatology Provider 05/09/22 [place] [address] [place] [address] Assigned Pain Medication Provider 06/29/22 09/04/22 [place] [address] [place] [address] Assigned PCP 08/15/22 08/28/22 Katrin Orellana PA-C [address] [place] [address] 968165 Assigned Surgical Provider 08/15/22 02/10/24 Cristina Hsieh [facility] [address] [facility] [place] [address] Pharmacist Pharmacist 09/07/22 Alfreda Ray PA-C [address] [place] [address] 58657 Assigned Pain Medication Provider 09/05/22 09/10/23 Alfreda Ray PA-C [address] [place] [address] 65666 Assigned PCP 08/29/22 Cristina Hsieh, [facility] [address] [place] [address] 78015 Assigned MTM Pharmacist 09/26/22 Dakota Tatum MD [address] [place] [address] 72563 Cardiovascular Disease 03/25/23 Dakota Tatum MD [address] [place] [address] 69757 Assigned Heart and Vascular Provider 05/01/23 [place] [address] [place] , [address] [address] Assigned Musculoskeletal Provider 04/12/24 documented as of this encounter
--- OUTSIDE RECORDS SUMMARY | 2024-06-23 00:29 | XMS_ITS | Encounter Summary ---
Author Organization [facility] Address [address] [place] [address] 24853 Care Team Providers Care Monkey Breeder Name Role Phone Esperanza Gatica MD Primary Care Provider + Esperanza Gatica MD Unavailable +[phone] Esperanza Gatica MD Unavailable +[phone] Esperanza Gatica MD Unavailable +[phone] Esperanza Gatica MD Unavailable +[phone] Esperanza Gatica MD Unavailable +[phone] Esperanza Gatica MD Unavailable +[phone] Jesús Orourke MD Unavailable Alfreda RayC Primary Care Provider + Alfreda Ray PA-C Unavailable + [phone] Katrin Orellana PA-C Unavailable [phone] Shanna VangC Unavailable +[phone] Fransisco Eddy MD Unavailable [phone] Esperanza Gatica MD Unavailable +[phone] Esperanza Gatica MD Unavailable +[phone] Katrin Orellana PA-C Unavailable Cristina Hsieh [facility] Unavailable Cory Alfreda Liu PA-C Unavailable [phone] Alfreda Ray Alexa KING Unavailable [phone] Cristina Hsieh [facility] Unavailable Dakota Tatum MD Unavailable Dakota Tatum MD Unavailable Srinivas Marie DO Unavailable [phone] Reason for Visit * Reason Onset Date Comments Refill Request 11/06/2011 Tramadol Encounter Details Date Type Department Care Team (Late st Contact Info) Description 11/06/2011 MyC Ref[address] [phone] Ajay Vick MD [address] [facility] LISBETH HERNANDEZ [phone] Refill Request (Tramadol) Social History Tobacco Use Types Packs/Day Years Used Date Smoking Tobacco: Former Cigarettes Q uit: 06/21/1973 Smokeless Tobacco: Former Alcohol Use Standard Drinks/Week Comments Yes 0 (1 standard drink = 0.6 oz pur e alcohol) rarely Comments No Sex and Gender Information Value Date Recorded Sex Assigned at Female 08/17/2018 7:56 AM BOX PACKER Legal Sex Female 4:24 AM BOX PACKER Gender Identity Female 08/17/2018 7:56 AM BOX PACKER Sexual Orientation Straight 08/17/2018 7: 56 AM BOX PACKER documented as of this encounter Miscellaneous Notes * Telephone Encounter - Leigha Rinaldi - 11/09/2011 1:16 PM CDTMessage from MyChart: Original authorizing provider: AJAY VICK MD Barbara J Pellicci would like a refill of the following medications: traMADol (ULTRAM) 50 MG tablet [AJAY VICK MD] Preferred pharmacy: [facility] Comment: I have switched to Dr. Esperanza Gatica. documented in this encounter Plan of Treatment Upcoming Encounters Date Type Department Care Team (Late st Contact Info) Description 09/07/2024 10:00 AM CDT Office Visit [facility] [address] LISBETH FRASER [phone] Frnasisco Eddy MD [address] [place] [address] 03/29/2025 3:40 PM CDT Office Visit [address] [phone] Alfreda Ray PA-C [address] [place] [address] 632742 documented as of this encounter Visit Diagnoses Diagnosis Knee pain Pain in joint, lower leg documented in this encounter Additional Health Concerns Infection Onset Date Last Indicated Resolved Time Rule Out COVID-19 05/08/2021 05/08/2021 05/09/2021 9:08 PM BOX PACKER documented as of this encounter Care Teams Monkey Breeder Relationship Specialty Start Date End Date Esperanza Gatica MD PCP - General Family Practice 10/13/11 12/29/21 [place] [address] LISBETH GARCIA 62819 PCP - Assigned PCP 12/05/17 08/23/18 Alfreda Ray PA-C [address] [place] [address] 47018 PCP - General Family Medicine 12/30/21 [place] [address] LISBETH GARCIA 89367 Assigned PCP 12/05/17 09/30/19 [place] [address] [place] [address] Assigned PCP 10/01/19 03/02/20 [place] [address] [place] [address] Assigned PCP 03/03/20 05/25/20 [place] [address] [place] [address] Assigned PCP 05/26/20 09/28/20 [place] [address] [place] [address] Assigned PCP 09/29/20 07/31/22 [place] [address] [address] Assigned Musculoskeletal Provider 10/20/20 04/17/22 Alfreda Ray PA-C [address] [place] [address] 761142 Referring Physician Family Medicine 12/31/21 Katrin Orellana PA-C [address] [place] [address] 122925 Physician Grocery Department Manager Dermatology 12/31/21 Shanna Vang PA-C [address] [place] [address] 06811 Assigned Cancer Care Provider 01/10/22 Fransisco Eddy MD [address] [place] [address] [address] [place] [address] Assigned Rheumatology Provider 05/09/22 [place] [address] [place] [address] Assigned Pain Medication Provider 06/29/22 09/04/22 [place] [address] [place] [address] Assigned PCP 08/15/22 08/28/22 Katrin Orellana PA-C [address] [place] [address] 56806 Assigned Surgical Provider 08/15/22 02/10/24 Cristina Hsieh [facility] [address] [place] [address] [place] [address] Pharmacist Pharmacist 09/07/22 Alfreda Ray PA-C [address] [place] [address] 80999 Assigned Pain Medication Provider 09/05/22 09/10/23 Alfreda Ray PA-C [address] [place] [address] 31176 Assigned PCP 08/29/22 Cristina Hsieh [facility] [address] [address] Assigned MTM Pharmacist 09/26/22 Dakota Tatum MD [address] [place] [address] 06777 Cardiovascular Disease 03/25/23 Dakota Tatum MD [address] [place] [address] 18655 Assigned Heart and Vascular Provider 05/01/23 [place] [address] [address], [facility] [address] [place] [address] Assigned Musculoskeletal Provider 04/12/24 documented as of this encounter
--- OUTSIDE RECORDS SUMMARY | 2024-06-23 00:29 | XMS_ITS | Encounter Summary ---
Author Organization [facility] Address [address] [place] [address]95 Care Team Providers Care Near Eastern Archaeology Lecturer Name Role Phone Alfa Marcelo MD Primary Care Provider Ajay Dailey MD Primary Care Provider [phone] Esperanza Gatica MD Primary Care Provider Esperanza Gatica MD Unavailable +[phone] Esperanza Gatica MD Unavailable +[phone] Esperanza Gatica MD Unavailable +[phone] Esperanza Gatica MD Unavailable +[phone] Esperanza Gatica MD Unavailable +[phone] Esperanza Gatica MD Unavailable +[phone] Jesús Orourke MD Unavailable Alfreda Ray PA-C Primary Care Provider + Alfreda RayC Unavailable +[phone] Katrin OrellanaC Unavailable Shanna Vang-C Unavailable +[phone] Fransisco Eddy MD Unavailable +[phone] Esperanza Gatica MD Unavailable +[phone] Esperanza Gatica MD Unavailable +[phone] Katrin Orellana PA-C Unavailable +[phone] Cristina Hsieh [facility] Unavailable +[phone] Cory Alfreda Liu PA-C Unavailable [phone] Cory Alfreda Liu PA-C Unavailable +[phone] Cristina Hsieh [facility] Unavailable [phone] Dakota Tatum MD Unavailable +[phone] Dakota Tatum MD Unavailable +[phone] Srinivas Marie DO Unavailable [phone] Encounter Details Date Type Department Care Team (Late st Contact Info) Description 10/19/[address] [phone] Becky Leo MD [facility] [address] [address] [facility] Summary Social History Tobacco Use Types Packs/Day [...] Sex Assigned at Female 08/17/2018 7:56 AM MUSEUM TECHNICIAN Legal Sex Female 4:24 AM MUSEUM TECHNICIAN Gender Identity Female 08/17/2018 7:56 AM MUSEUM TECHNICIAN Sexual Orientation Straight 08/17/2018 7: 56 AM MUSEUM TECHNICIAN documented as of this encounter Plan of Treatment Upcoming Encounters Date Type Department Care Team (Late st Contact Info) Description 09/07/2024 10:00 AM CDT Office Visit [address] [place] [phone] Fransisco Eddy MD [address] [place] [address] 03/29/2025 3:40 PM CDT Office Visit [address] [phone] Alfreda Ray PA-C [address] [place] [address] 038942 documented as of this encounter Visit Diagnoses [facility]- Primary documented in this encounter Additional Health Concerns Infection Onset Date Last Indicated Resolved Time Rule Out COVID-19 05/08/2021 05/08/2021 05/09/2021 9:08 PM MUSEUM TECHNICIAN documented as of this encounter Care Teams Near Eastern Archaeology Lecturer Relationship Specialty Start Date End Date Alfa Marcelo MD [address] [address] PCP - General 01/22/04 01/28/11 Ajay Dailey MD [address] [address] PCP - General Family Practice 01/29/11 10/12/11 Esperanza Gatica MD [address] [address] PCP - General Family Practice 10/13/11 12/29/21 [place] [address] [place] [address] PCP - Assigned PCP 12/05/17 08/23/18 Alfreda Ray PA-C [address] [place] [address] PCP - General Family Medicine 12/30/21 [place] [address] [place] [address] Assigned PCP 12/05/17 09/30/19 [place] [address] [place] [address] Assigned PCP 10/01/19 03/02/20 [place] [address] [place] [address] Assigned PCP 03/03/20 05/25/20 [place] [address] [place] [address] Assigned PCP 05/26/20 09/28/20 [place] [address] [place] [address] Assigned PCP 09/29/20 07/31/22 [place] [address] [place] [address] Assigned Musculoskeletal Provider 10/20/20 04/17/22 Alfreda Ray PA-C [address] [place] [address] Referring Physician Family Medicine 12/31/21 Katrin Orellana PA-C [address] [address] Physician Grain Commodity Manager Dermatology 12/31/21 Shanna Vang PA-C [address] [phone] Assigned Cancer Care Provider 01/10/22 Fransisco Eddy MD [address] [place] [address] 819385 Assigned Rheumatology Provider 05/09/22 [place] [address] [place] [address] Assigned Pain Medication Provider 06/29/22 09/04/22 [place] [address] LISB[address] GARCIA [address] Assigned PCP 08/15/22 08/28/22 Katrin Orellana PA-C [address] [place] [address] Assigned Surgical Provider 08/15/22 02/10/24 Cristina Hsieh, [facility] [address] [facility] L[place]BETH HERNANDEZ [address] Pharmacist Pharmacist 09/07/22 Alfreda Ray PA-C [address] [place] [address] Assigned Pain Medication Provider 09/05/22 09/10/23 Alfreda Ray PA-C [address] [place] [address] Assigned PCP 08/29/22 Cristina Hsieh, [facility] [address] [facility] [address] [place] [address] Assigned MTM Pharmacist 09/26/22 Dakota Tatum MD [address] [place] [address] 008495 Cardiovascular Disease 03/25/23 Dakota Tatum MD [address] [place] [address] 080055 Assigned Heart and Vascular Provider 05/01/23 [place] [address] CELE GASTELUM, [facility] [address] [place] [address] Assigned Musculoskeletal Provider 04/12/24 documented as of this encounter
--- OUTSIDE RECORDS SUMMARY | 2024-06-23 00:29 | XMS_ITS | Encounter Summary ---
Author Organization [facility] Address [address] [place] [address] Care Team Providers Care Sausage Stuffer Name Role Phone Ajay Dailey MD Primary Care Provider [phone] Esperanza Gatica MD Primary Care Provider + Esperanza Gatica MD Unavailable + Esperanza Gatica MD Unavailable + Esperanza Gatica MD Unavailable + Esperanza Gatica MD Unavailable + Esperanza Gatica MD Unavailable + Esperanza Gatica MD Unavailable +[phone] Jesús Orourke MD Unavailable Alfreda RayC Primary Care Provider + Alfreda Ray-Gallito Unavailable +[phone] Katrin Orellana PA-C Unavailable +[phone] Shanna Vang-C Unavailable +[phone] Fransisco Eddy MD Unavailable +[phone] Esperanza Gatica MD Unavailable +[phone] Esperanza Gatica MD Unavailable +[phone] Katrin Orellana PA-C Unavailable Cristina Hsieh [facility] Unavailable +[phone] Cory Alfreda Liu PA-C Unavailable + [phone] Cory Alfreda Liu PA-C Unavailable +[phone] Cristina Hsieh [facility] Unavailable +[phone] Dakota Tatum MD Unavailable +[phone] Dakota Tatum MD Unavailable +[phone] Srinivas Marie DO Unavailable +[phone] Reason for Visit * Reason Onset Date Comments Refill Request 02/26/2011 Encounter Details Date Type Department Care Team (Late st Contact Info) Description 02/26/[address] [address] Alfa Marcelo MD [facility] 8080 [facility] 200 [place] [address] Refill Request Social History Tobacco Use Types Packs/Day Years Used Date Smoking Tobacco: Former Cigarettes Q uit: 06/21/1973 Smokeless Tobacco: Never Alcohol Use Standard Drinks/Week Comments Yes 0 (1 standard drink = 0.6 oz pur e alcohol) rarely Comments No Sex and Gender Information Value Date Recorded Sex Assigned at Female 08/17/2018 7:56 AM ENTRY SPECIALIST Legal Sex Female 4:24 AM ENTRY SPECIALIST Gender Identity Female 08/17/2018 7:56 AM ENTRY SPECIALIST Sexual Orientation Straight 08/17/2018 7: 56 AM ENTRY SPECIALIST documented as of this encounter Miscellaneous Notes * Telephone Encounter - Selin Magi - 02/26/2011 3:04 PM CDTMessage from [place]: Original authorizing provider: Alfa Bradshaw would like a refill of the following medications: tramadol (ULTRAM) 50 MG tablet [Alfa Marcelo MD] Preferred pharmacy: [facility] Filemon YANEZ Comment: Please note [address] Mracelo documented in this encounter Plan of Treatment Upcoming Encounters Date Type Department Care Team (Late st Contact Info) Description 09/07/2024 10:00 AM CDT Office Visit [facility] [place] [address] [place] [address] 200 [place] [phone] Fransisco Eddy MD [address] [place] [address] 03/29/2025 3:40 PM CDT Office Visit [address] [phone] Alfreda Ray PA-C [address] [place] [address] [phone] documented as of this encounter Visit Diagnoses Diagnosis DJD (degenerative joint disease) of knee Osteoarthrosis, unspecified whether generalized or localized, lower leg documented in this encounter Additional Health Concerns Infection Onset Date Last Indicated Resolved Time Rule Out COVID-19 05/08/2021 05/08/2021 05/09/2021 9:08 PM ENTRY SPECIALIST documented as of this encounter Care Teams Sausage Stuffer Relationship Specialty Start Date End Date Ajay Dailey MD PCP - General Family Practice 01/29/11 10/12/11 Esperanza Gatica MD PCP - General Family Practice 10/13/11 12/29/21 [place] [address] [place] [address] PCP - Assigned PCP 12/05/17 08/23/18 Alfreda Ray PA-C [address] [place] [address] PCP - General Family Medicine 12/30/21 [place] [address] [place] [address] Assigned PCP 12/05/17 09/30/19 [place] [address] [place] [address] Assigned PCP 10/01/19 03/02/20 [place] [address] [place] [address] Assigned PCP 03/03/20 05/25/20 [place] [address] [place] [address] Assigned PCP 05/26/20 09/28/20 [place] [address] [place] [address] Assigned PCP 09/29/20 07/31/22 [place] [address] [place] [address] Assigned Musculoskeletal Provider 10/20/20 04/17/22 Alfreda Ray PA-C [address] [place] [address] Referring Physician Family Medicine 12/31/21 Katrin Orellana PA-C [address] [address] Physician Machine Coremaker Dermatology 12/31/21 Shanna Vang PA-C [address] [place] [address] 360344 Assigned Cancer Care Provider 01/10/22 Fransisco Eddy MD [address] [place] [address] 712465 Assigned Rheumatology Provider 05/09/22 [place] [address] [place] [address] Assigned Pain Medication Provider 06/29/22 09/04/22 [place] [address] [place] [address] Assigned PCP 08/15/22 08/28/22 Katrin Orellana PA-C [address] [place] [address] 012505 Assigned Surgical Provider 08/15/22 02/10/24 Cristina Hsieh [facility] 3[address] [facility] [place]DEZ [address] Pharmacist Pharmacist 09/07/22 Alfreda Ray PA-C [address] [place] [address] Assigned Pain Medication Provider 09/05/22 09/10/23 Alfreda Ray PA-C [address] [place] [address] 902442 Assigned PCP 08/29/22 Cristina Hsieh, [facility] [address] [place] [address] Assigned MTM Pharmacist 09/26/22 Dakota Tatum MD [address] [place] [address] 342815 Cardiovascular Disease 03/25/23 Dakota Tatum MD [address] [place] [address] Assigned Heart and Vascular Provider 05/01/23 [place] [address] [address], [address] [address] Assigned Musculoskeletal Provider 04/12/24 documented as of this encounter
--- OUTSIDE RECORDS SUMMARY | 2024-06-23 00:29 | XMS_ITS | Encounter Summary ---
Author Organization [facility] Address [address] [place] [address] Care Team Providers Care Railroad Mechanic Name Role Phone Alfa Marcelo MD Primary Care Provider Ajay Dailey MD Primary Care Provider [phone] Esperanza Gatica MD Primary Care Provider Esperanza Gatica MD Unavailable +[phone] Esperanza Gatica MD Unavailable +[phone] Esperanza Gatica MD Unavailable +[phone] Esperanza Gatica MD Unavailable +[phone] Esperanza Gatica MD Unavailable +[phone] Esperanza Gatica MD Unavailable +[phone] Jesús Orourke MD Unavailable Alfreda Ray PA-C Primary Care Provider + Alfreda RayC Unavailable +[phone] Katrin OrellanaC Unavailable Shanna Vang-C Unavailable +[phone] Fransisco Eddy MD Unavailable +[phone] Esperanza Gatica MD Unavailable +[phone] Esperanza Gatica MD Unavailable +[phone] Katrin OrellanaC Unavailable Cristina Hsieh [facility] Unavailable +[phone] Cory Alfreda Liu PA-C Unavailable +[phone] Cory Alfreda Liu PA-C Unavailable +[phone] Cristina Hsieh [facility] Unavailable +[phone] Dakota Tatum MD Unavailable +[phone] Dakota Tatum MD Unavailable +[phone] Srinivas Marie DO Unavailable [phone] Encounter Details Date Type Department Care Team (Late st Contact Info) Description 11/03/[address] [address] Becky Leo MD [facility] [address] [address] [facility] Note Social History Tobacco Use Types Packs/Day [...] Sex Assigned at Female 08/17/2018 7:56 AM SLEEP MEDICINE PHYSICIAN Legal Sex Female 4:24 AM SLEEP MEDICINE PHYSICIAN Gender Identity Female 08/17/2018 7:56 AM SLEEP MEDICINE PHYSICIAN Sexual Orientation Straight 08/17/2018 7: 56 AM SLEEP MEDICINE PHYSICIAN documented as of this encounter Plan of Treatment Upcoming Encounters Date Type Department Care Team (Late st Contact Info) Description 09/07/2024 10:00 AM CDT Office Visit [address] 200 [place] [phone] Fransisco Eddy MD [address] [place] [address] 03/29/2025 3:40 PM CDT Office Visit [facility] [address] [place] [phone] Alfreda Ray PA-C [address] [place] [address] 259842 documented as of this encounter Visit Diagnoses Diagnosis [facility] Note- Primary documented in this encounter Additional Health Concerns Infection Onset Date Last Indicated Resolved Time Rule Out COVID-19 05/08/2021 05/08/2021 05/09/2021 9:08 PM SLEEP MEDICINE PHYSICIAN documented as of this encounter Care Teams Railroad Mechanic Relationship Specialty Start Date End Date Alfa Marcelo MD [address] [address] PCP - General 01/22/04 01/28/11 Ajay Dailey MD [address] [address] PCP - General Family Practice 01/29/11 10/12/11 Esperanza Gatica MD [address] [address] PCP - General Family Practice 10/13/11 12/29/21 [place] [address] [place] [address] PCP - Assigned PCP 12/05/17 08/23/18 Alfreda Ray PA-C [address] [place] [address] PCP - General Family Medicine 12/30/21 [place] [address] [place] [address] Assigned PCP 12/05/17 09/30/19 [place] [address] [place] [address] Assigned PCP 10/01/19 03/02/20 [place] [address] [address] [place] [address] Assigned PCP 03/03/20 05/25/20 [place] [address] [address] [place] [address] Assigned PCP 05/26/20 09/28/20 [place] [address] [place] [address] Assigned PCP 09/29/20 07/31/22 Jesú[place] [address] [place] [address] Assigned Musculoskeletal Provider 10/20/20 04/17/22 Alfreda Ray PA-C [address] [place] [address] Referring Physician Family Medicine 12/31/21 Katrin Orellana PA-C [address] [address] Physician Resume Specialist Dermatology 12/31/21 Shanna Vang PA-C [address] 901244 Assigned Cancer Care Provider 01/10/22 Fransisco Eddy MD [address] [place] [address] 673185 Assigned Rheumatology Provider 05/09/22 [place] [address] [place] [address] Assigned Pain Medication Provider 06/29/22 09/04/22 [place] [address] [place] [address] Assigned PCP 08/15/22 08/28/22 Katrin Orellana PA-C [address] [place] [address] Assigned Surgical Provider 08/15/22 02/10/24 Cristina Hsieh [facility] 3[address] [facility] [place] [address] Pharmacist Pharmacist 09/07/22 Alfreda Ray PA-C [address] [place] [address] Assigned Pain Medication Provider 09/05/22 09/10/23 Alfreda Ray PA-C [address] [place] [address] Assigned PCP 08/29/22 Cristina Hsieh [facility] [address] [facility] 101 [place] [address] Assigned MTM Pharmacist 09/26/22 Dakota Tatum MD [address] [place] [address] 822805 Cardiovascular Disease 03/25/23 Dakota Tatum MD [address] [place] [address] 294885 Assigned Heart and Vascular Provider 05/01/23 [place] [address] [address], [facility] [address] [place] [address] Assigned Musculoskeletal Provider 04/12/24 documented as of this encounter
--- OUTSIDE RECORDS SUMMARY | 2024-06-23 00:29 | XMS_ITS | Encounter Summary ---
Author Organization [facility] Address [address] [place] [address] Care Team Providers Care Dispensing Operator Name Role Phone Alfa Marcelo MD Primary Care Provider Ajay Dailey MD Primary Care Provider [phone] Esperanza Gatica MD Primary Care Provider Esperanza Gatica MD Unavailable +[phone] Esperanza Gatica MD Unavailable +[phone] Esperanza Gatica MD Unavailable +[phone] Esperanza Gatica MD Unavailable +[phone] Esperanza Gatica MD Unavailable +[phone] Esperanza Gatica MD Unavailable +[phone] Jesús Orourke MD Unavailable Alfreda Ray PA-C Primary Care Provider + Alfreda RayC Unavailable +[phone] Katrin OrellanaC Unavailable Shanna Vang-C Unavailable +[phone] Fransisco Eddy MD Unavailable +[phone] Esperanza Gatica MD Unavailable +[phone] Esperanza Gatica MD Unavailable +[phone] Katrin OrellanaC Unavailable Cristina Hsieh [facility] Unavailable +[phone] Cory Alfreda Liu PA-C Unavailable + [phone] Cory Alfreda Liu PA-C Unavailable +[phone] Cristina Hsieh [facility] Unavailable +[phone] Dakota Tatum MD Unavailable + [phone] Dakota Tatum MD Unavailable + [phone] Srinivas Marie DO Unavailable +[phone] Reason for Visit * Reason Onset Date Comments Refill Request 04/08/2009 Atenolol and Howard phong Slk Encounter Details Date Type Department Care Team (Late st Contact Info) Description 04/08/2009 MyC Refill [address] [address] Mary Haas MD Refill Request (Atenolol and Vicodin Slk) Social History Tobacco Use Types Packs/Day Years Used Date Smoking Tobacco: Former Cigarettes Q uit: 06/21/1973 Alcohol Use Standard Drinks/Week Comments Yes 0 (1 standard drink = 0.6 oz pur e alcohol) rarely Comments No Sex and Gender Information Value Date Recorded Sex Assigned at Female 08/17/2018 7:56 AM COMMUNITY HEALTH WORKER Legal Sex Female 4:24 AM COMMUNITY HEALTH WORKER Gender Identity Female 08/17/2018 7:56 AM COMMUNITY HEALTH WORKER Sexual Orientation Straight 08/17/2018 7: 56 AM COMMUNITY HEALTH WORKER documented as of this encounter [...] Rene - 04/08/2009 10:[address] [facility]: Alexandria Bradshaw would like a refill of the following medications: ATENOLOL 25 MG OR TABS [CARISSA PAGAN] Preferred pharmacy: [facility] Comment: I have switched Doctors to Mary Haas in [place]. Thank you. documented in this encounter Plan of Treatment Upcoming Encounters Date Type Department Care Team (Late st Contact Info) Description 09/07/2024 10:00 AM CDT Office Visit [facility] [address] [phone] Fransisco Eddy MD [address] [place] [address] [phone] 03/29/2025 3:40 PM CDT Office Visit [address] [phone] Alfreda Ray PA-C [address] [place] [address] [phone] documented as of this encounter Visit Diagnoses Diagnosis Tinnitus Unspecified tinnitus Pain in limb documented in this encounter Additional Health Concerns Infection Onset Date Last Indicated Resolved Time Rule Out COVID-19 05/08/2021 05/08/2021 05/09/2021 9:08 PM COMMUNITY HEALTH WORKER documented as of this encounter Care Teams Dispensing Operator Relationship Specialty Start Date End Date Alfa Marcelo MD [facility] [address] [place] [address] [place] [address] PCP - General 01/22/04 01/28/11 Ajay Dailey MD [address] [place] [address] [place] [address] PCP - General Family Practice 01/29/11 10/12/11 Esperanza Gatica MD [address] [address] PCP - General Family Practice 10/13/11 12/29/21 [place] [address] [place] [address] PCP - Assigned PCP 12/05/17 08/23/18 Alfreda Ray PA-C [address] [place] [address] PCP - General Family Medicine 12/30/21 [place] [address] [place] [address] Assigned PCP 12/05/17 09/30/19 [place] [address] [place] [address] Assigned PCP 10/01/19 03/02/20 [place] [address] [place] [address] Assigned PCP 03/03/20 05/25/20 [place] [address] [place] [address] Assigned PCP 05/26/20 09/28/20 [place] [address] [place] [address] Assigned PCP 09/29/20 07/31/22 Jesú[place] [address] [place] [address] Assigned Musculoskeletal Provider 10/20/20 04/17/22 Alfreda Ray PA-C [address] [place] [address] 934742 Referring Physician Family Medicine 12/31/21 Katrin Orellana PA-C 420 [facility] 98 [place] [address] Physician Photographer Aerial Dermatology 12/31/21 Shanna Vang PA-C [address] [place] [address] Assigned Cancer Care Provider 01/10/22 Fransisco Eddy MD [address] [place] [address] 88 [place] [address] Assigned Rheumatology Provider 05/09/22 [place] [address] [place] [address] Assigned Pain Medication Provider 06/29/22 09/04/22 [place] [address] [place] [address] Assigned PCP 08/15/22 08/28/22 Katrin Orellana PA-C [address] [place] [address] 98 [place] [address] Assigned Surgical Provider 08/15/22 02/10/24 Cristina Hsieh [facility] 3[address] [facility] [place] [address] Pharmacist Pharmacist 09/07/22 Alfreda Ray PA-C [address] [place] [address] 209912 Assigned Pain Medication Provider 09/05/22 09/10/23 Alfreda Ray PA-C [address] [place] [address] Assigned PCP 08/29/22 Cristina Hsieh, [facility] 1600 [facility] 101 [place] [address] Assigned MTM Pharmacist 09/26/22 Dakota Tatum MD [address] [place] [address] 007305 Cardiovascular Disease 03/25/23 Dakota Tatum MD [address] [place] [address] 573525 Assigned Heart and Vascular Provider 05/01/23 [place] [address] [address], [facility] [address] [place] [address] Assigned Musculoskeletal Provider 04/12/24 documented as of this encounter
--- OUTSIDE RECORDS SUMMARY | 2024-06-23 00:29 | XMS_ITS | Encounter Summary ---
Author Organization [facility] Address [address] [place] [address] Care Team Providers Care Canal Boat Captain Name Role Phone Esperanza Gatica MD Primary Care Provider + Esperanza Gatica MD Unavailable +[phone] Esperanza Gatica MD Unavailable +[phone] Esperanza Gatica MD Unavailable +[phone] Esperanza Gatica MD Unavailable +[phone] Esperanza Gatica MD Unavailable +[phone] Esperanza Gatica MD Unavailable +[phone] Jesús Orourke MD Unavailable Alfreda RayC Primary Care Provider + Alfreda Ray PA-C Unavailable + [phone] Katrin Orellana PA-C Unavailable [phone] Shanna VangC Unavailable +[phone] Fransisco Eddy MD Unavailable +[phone] Esperanza Gatica MD Unavailable +[phone] Esperanza Gatica MD Unavailable +[phone] Katrin Orellana PA-C Unavailable Cristina Hsieh [facility] Unavailable Ho Raymustapha Liu PA-C Unavailable +[phone] Alfreda Ray Alexa KING Unavailable +[phone] Cristina Hsieh [facility] Unavailable Dakota Tatum MD Unavailable Dakota Tatum MD Unavailable [phone] Srinivas Marie DO Unavailable [phone] Reason for Visit * Reason Onset Date Comments Refill Request 11/26/2011 vicodin Encounter Details Date Type Department Care Team (Late st Contact Info) Description 11/26/2011 MyC Refill M [address], [facility] [address] [place] [address] [place] [address] [place] [address] Refill Request (vicodin) Social History Tobacco Use Types Packs/Day Years Used Date Smoking Tobacco: Former Cigarettes Q uit: 06/21/1973 Smokeless Tobacco: Former Alcohol Use Standard Drinks/Week Comments Yes 0 (1 standard drink = 0.6 oz pur e alcohol) rarely Comments No Sex and Gender Information Value Date Recorded Sex Assigned at Female 08/17/2018 7:56 AM DETECTIVE HOMICIDE SQUAD Legal Sex Female 4:24 AM DETECTIVE HOMICIDE SQUAD Gender Identity Female 08/17/2018 7:56 AM DETECTIVE HOMICIDE SQUAD Sexual Orientation Straight 08/17/2018 7: 56 AM DETECTIVE HOMICIDE SQUAD documented as of this encounter Miscellaneous Notes [...] per tablet [Esperanza Gatica MD] Preferred pharmacy: [facility] Comment: documented in this encounter Plan of Treatment Upcoming Encounters Date Type Department Care Team (Late st Contact Info) Description 09/07/2024 10:00 AM CDT Office Visit [facility] Specialty [address] [phone] Fransisco Eddy MD [address] [place] [address] [phone] 03/29/2025 3:40 PM CDT Office Visit [address] [phone] Alfreda Ray PA-C [address] [place] [address] [phone] documented as of this encounter Visit Diagnoses Diagnosis Osteoarthritis- Primary Osteoarthrosis, unspecified whether generalized or localized, unspecified site documented in this encounter Additional Health Concerns Infection Onset Date Last Indicated Resolved Time Rule Out COVID-19 05/08/2021 05/08/2021 05/09/2021 9:08 PM DETECTIVE HOMICIDE SQUAD documented as of this encounter Care Teams Canal Boat Captain Relationship Specialty Start Date End Date Esperanza Gatica MD PCP - General Family Practice 10/13/11 12/29/21 [place] [address] [place] [address] PCP - Assigned PCP 12/05/17 08/23/18 Alfreda Ray PA-C [address] [place] [address] PCP - General Family Medicine 12/30/21 [place] [address] [place] [address] Assigned PCP 12/05/17 09/30/19 [place] [address] [place] [address] Assigned PCP 10/01/19 03/02/20 [place] [address] [place] [address] Assigned PCP 03/03/20 05/25/20 [place] [address] [place] [address] Assigned PCP 05/26/20 09/28/20 [place] [address] [place] [address] Assigned PCP 09/29/20 07/31/22 [place] [address] [place] [address] Assigned Musculoskeletal Provider 10/20/20 04/17/22 Alfreda Ray PA-C [address] [place] [address] Referring Physician Family Medicine 12/31/21 Katrin Orellana PA-C [address] [place] [address] Physician Clinical Program Consultant Dermatology 12/31/21 Shanna Vang PA-C [address] [place] [address] Assigned Cancer Care Provider 01/10/22 Fransisco Eddy MD [address] [place] [address] Assigned Rheumatology Provider 05/09/22 [place] [address] [facility] [address] Assigned Pain Medication Provider 06/29/22 09/04/22 [place] [address] [place] [address] Assigned PCP 08/15/22 08/28/22 Katrin Orellana PA-C [address] [place] [address] Assigned Surgical Provider 08/15/22 02/10/24 Cristina Hsieh [facility] [address] [place] [address] LISBETH HERNANDEZ [address] Pharmacist Pharmacist 09/07/22 Alfreda Ray PA-C [address] [place] [address], [place] [address] Assigned Pain Medication Provider 09/05/22 09/10/23 Alfreda Ray PA-C [address] [place] [address] Assigned PCP 08/29/22 Cristina Hsieh, [facility] [address] [place] [address] Assigned MTM Pharmacist 09/26/22 Dakota Tatum MD [address] [place] [address] Cardiovascular Disease 03/25/23 Dakota Tatum MD [address] [place] [address] Assigned Heart and Vascular Provider 05/01/23 [place] [address] [address], [address] [address] Assigned Musculoskeletal Provider 04/12/24 documented as of this encounter
--- OUTSIDE RECORDS SUMMARY | 2024-06-23 00:29 | XMS_ITS | Encounter Summary ---
Author Organization [facility] Address [address] [place] [address] Care Team Providers Care Machine Ii Coremaker Name Role Phone Alfa Marcelo MD Primary Care Provider Ajay Dailey MD Primary Care Provider [phone] Esperanza Gatica MD Primary Care Provider Esperanza Gatica MD Unavailable +[phone] Esperanza Gatica MD Unavailable +[phone] Esperanza Gatica MD Unavailable +[phone] Esperanza Gatica MD Unavailable +[phone] Esperanza Gatica MD Unavailable +[phone] Esperanza Gatica MD Unavailable +[phone] Jesús Orourke MD Unavailable Alfreda Ray PA-C Primary Care Provider + Alfreda RayC Unavailable +[phone] Katrin OrellanaC Unavailable Shanna Vang-C Unavailable +[phone] Fransisco Eddy MD Unavailable +[phone] Esperanza Gatica MD Unavailable +[phone] Esperanza Gatica MD Unavailable +[phone] Katrin Orellana PA-C Unavailable Cristina Hsieh [facility] Unavailable +[phone] Cory Alfreda Liu PA-C Unavailable +[phone] Cory Alfreda Lui PA-C Unavailable +[phone] Cristina Hsieh [facility] Unavailable +[phone] Dakota Tatum MD Unavailable +[phone] Dakota Tatum MD Unavailable +[phone] Srinivas Marie DO Unavailable [phone] Reason for Visit * Reason Onset Date Comments MyChart Communication 10/02/2009 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 Social History Tobacco Use Types Packs/Day Years Used Date Smoking Tobacco: Former Cigarettes Q uit: 06/21/1973 Alcohol Use Standard Drinks/Week Comments Yes 0 (1 standard drink = 0.6 oz pur e alcohol) rarely Comments No Sex and Gender Information Value Date Recorded Sex Assigned at Female 08/17/2018 7:56 AM NUCLEAR WASTE PROCESS OPERATOR Legal Sex Female 4:24 AM NUCLEAR WASTE PROCESS OPERATOR Gender Identity Female 08/17/2018 7:56 AM NUCLEAR WASTE PROCESS OPERATOR Sexual Orientation Straight 08/17/2018 7: 56 AM NUCLEAR WASTE PROCESS OPERATOR documented as of this encounter Plan of Treatment Upcoming Encounters Date Type Department Care Team (Late st Contact Info) Description 09/07/2024 10:00 AM CDT Office Visit [facility] Special[facility] [address] [address] Fransisco Eddy MD [address] [place] [address] 03/29/2025 3:40 PM CDT Office Visit [address] [address] Alfreda Ray PA-C [address] [place] [address] 016382 documented as of this encounter Visit Diagnoses Not on filedocumented in this encounter Additional Health Concerns Infection Onset Date Last Indicated Resolved Time Rule Out COVID-05/08/2021 05/08/2021 05/09/2021 9:08 PM NUCLEAR WASTE PROCESS OPERATOR documented as of this encounter Care Teams Machine Ii Coremaker Relationship Specialty Start Date End Date Alfa Marcelo MD [address] [address] PCP - General 01/22/04 01/28/11 Ajay Dailey MD [address] [address] PCP - General Family Practice 01/29/11 10/12/11 Esperanza Gatica MD [address] [facility] [address] [place] [address] PCP - General Family Practice 10/13/11 12/29/21 [place] [address] [place] [address] PCP - Assigned PCP 12/05/17 08/23/18 Alfreda Ray PA-C [address] [place] [address] PCP - General Family Medicine 12/30/21 [place] [address] [place] [address] Assigned PCP 12/05/17 09/30/19 [place] [address] [place] [address] Assigned PCP 10/01/19 03/02/20 [place] [address] [place] [address] Assigned PCP 03/03/20 05/25/20 [place] [address] [place] [address] Assigned PCP 05/26/20 09/28/20 [place] [address] [place] [address] Assigned PCP 09/29/20 07/31/22 [place] [address] [address] [place] [address] Assigned Musculoskeletal Provider 10/20/20 04/17/22 Alfreda Ray PA-C [address] [place] [address] Referring Physician Family Medicine 12/31/21 Katrin Orellana PA-C [address] [address] Physician Regional Loss Prevention Manager Dermatology 12/31/21 Shanna Vang PA-C [address] [place] [address] 075764 Assigned Cancer Care Provider 01/10/22 Fransisco Eddy MD [address] [place] [address] 234095 Assigned Rheumatology Provider 05/09/22 [place] [address] [place] [address] Assigned Pain Medication Provider 06/29/22 09/04/22 [place] [address] [place] [address] Assigned PCP 08/15/22 08/28/22 Katrin Orellana PA-C [address] [place] [address] Assigned Surgical Provider 08/15/22 02/10/24 Cristina Hsieh [facility] [address] [facility] [place] [address] Pharmacist Pharmacist 09/07/22 Alfreda Ray PA-C [address] [place] [address] Assigned Pain Medication Provider 09/05/22 09/10/23 Alfreda Ray PA-C [address] [place] [address] 114602 Assigned PCP 08/29/22 Cristina Hsieh, [facility] [address] [address] Assigned MTM Pharmacist 09/26/22 Dakota Tatum MD [address] [place] [address] 779675 Cardiovascular Disease 03/25/23 Dakota Tatum MD [address] [place] [address] 838075 Assigned Heart and Vascular Provider 05/01/23 [place] [address] [address] , [address] [address] Assigned Musculoskeletal Provider 04/12/24 documented as of this encounter
--- OUTSIDE RECORDS SUMMARY | 2024-06-23 00:29 | XMS_ITS | Encounter Summary ---
Author Organization [facility] Address [address] [place] [address] Care Team Providers Care Pump Erector Name Role Phone Alfa Marcelo MD Primary Care Provider Ajay Dailey MD Primary Care Provider [phone] Esperanza Gatica MD Primary Care Provider Esperanza Gatica MD Unavailable +[phone] Esperanza Gatica MD Unavailable +[phone] Esperanza Gatica MD Unavailable +[phone] Esperanza Gatica MD Unavailable +[phone] Esperanza Gatica MD Unavailable +[phone] Esperanza Gatica MD Unavailable +[phone] Jesús Orourke MD Unavailable Alfreda Ray PA-C Primary Care Provider + Alfreda RayC Unavailable +[phone] Katrin OrellanaC Unavailable Shanna Vang-C Unavailable +[phone] Fransisco Eddy MD Unavailable +[phone] Esperanza Gatica MD Unavailable +[phone] Esperanza Gatica MD Unavailable +[phone] Katrin Orellana PA-C Unavailable Cristina Hsieh [facility] Unavailable [phone] RayAlfreda olvera PA-C Unavailable [phone] Cory Alfreda Liu PA-C Unavailable +[phone] Cristina Hsieh [facility] Unavailable +[phone] Dakota Tatum MD Unavailable [phone] Dakota Tatum MD Unavailable +[phone] Srinivas Marie DO Unavailable [phone] Encounter Details Date Type Department Care Team (Late st Contact Info) Description 09/23/[address] [address] Becky Leo MD [address] [address] [facility] Summary Social History Tobacco Use Types Packs/Day [...] Sex Assigned at Female 08/17/2018 7:56 AM KITCHEN AIDE Legal Sex Female 4:24 AM KITCHEN AIDE Gender Identity Female 08/17/2018 7:56 AM KITCHEN AIDE Sexual Orientation Straight 08/17/2018 7: 56 AM KITCHEN AIDE documented as of this encounter Plan of Treatment Upcoming Encounters Date Type Department Care Team (Late st Contact Info) Description 09/07/2024 10:00 AM CDT Office Visit [address] [phone] Fransisco Eddy MD [address] [place] [address] 03/29/2025 3:40 PM CDT Office Visit [facility] [address] [place] [address] Alfreda Ray PA-C [address] [place] [address] 362592 documented as of this encounter Visit Diagnoses Diagnosis Brady Rastafari Majk-Qsee-Smalnhzxv Summary- Primary documented in this encounter Additional Health Concerns Infection Onset Date Last Indicated Resolved Time Rule Out COVID-05/08/2021 05/08/2021 05/09/2021 9:08 PM KITCHEN AIDE documented as of this encounter Care Teams Pump Erector Relationship Specialty Start Date End Date Alfa Marcelo MD [address] [address] PCP - General 01/22/04 01/28/11 Ajay Dailey MD [address] [address] PCP - General Family Practice 01/29/11 10/12/11 Esperanza Gatica MD [address] [address] PCP - General Family Practice 10/13/11 12/29/21 [place] [address] [facility] [place] [address] PCP - Assigned PCP 12/05/17 08/23/18 Alfreda Ray PA-C [address] [place] [address] PCP - General Family Medicine 12/30/21 [place] [address] [place] [address] Assigned PCP 12/05/17 09/30/19 [place] [address] [place] [address] Assigned PCP 10/01/19 03/02/20 [place] [address] [place] [address] Assigned PCP 03/03/20 05/25/20 [place] [address] [place] [address] Assigned PCP 05/26/20 09/28/20 [place] [address] [place] [address] Assigned PCP 09/29/20 07/31/22 Jesú[place] [address] [place] [address] Assigned Musculoskeletal Provider 10/20/20 04/17/22 Alfreda Ray PA-C [address] [place] [address] Referring Physician Family Medicine 12/31/21 Katrin Orellana PA-C [address] [address] Physician Net Mender Dermatology 12/31/21 Shanna Vang PA-C [address] [place] [address] 600924 Assigned Cancer Care Provider 01/10/22 Fransisco Eddy MD [address] [place] [address] 596075 Assigned Rheumatology Provider 05/09/22 [place] [address] [place] [address] Assigned Pain Medication Provider 06/29/22 09/04/22 [place] [address] [place] [address] Assigned PCP 08/15/22 08/28/22 Katrin Orellana PA-C [address] [place] [address] Assigned Surgical Provider 08/15/22 02/10/24 Cristina Hsieh [facility] 3[address] [facility] [place] [address] Pharmacist Pharmacist 09/07/22 Alfreda Ray PA-C [address] [place] [address] Assigned Pain Medication Provider 09/05/22 09/10/23 Alfreda Ray PA-C [address] [place] [address] 930852 Assigned PCP 08/29/22 Cristina Hsieh, [facility] [address] [address] Assigned MTM Pharmacist 09/26/22 Dakota Tatum MD [address] [place] [address] 220555 Cardiovascular Disease 03/25/23 Dakota Tatum MD [address] [place] [address] 846385 Assigned Heart and Vascular Provider 05/01/23 [place] [address] [facility], [address] [address] Assigned Musculoskeletal Provider 04/12/24 documented as of this encounter
--- OUTSIDE RECORDS SUMMARY | 2024-06-23 00:29 | XMS_ITS | Encounter Summary ---
Author Organization [facility] Address [address] [place] [address] Care Team Providers Care Clinical Molecular Geneticist Name Role Phone Esperanza Gatica MD Primary Care Provider + Esperanza Gatica MD Unavailable +[phone] Esperanza Gatica MD Unavailable +[phone] Esperanza Gatica MD Unavailable +[phone] Esperanza Gatica MD Unavailable +[phone] Esperanza Gatica MD Unavailable +[phone] Esperanza Gatica MD Unavailable +[phone] Jesús Orourke MD Unavailable Alfreda RayC Primary Care Provider + Alfreda Ray PA-C Unavailable + [phone] Katrin Orellana PA-C Unavailable [phone] Shanna VangC Unavailable +[phone] Fransisco Eddy MD Unavailable [phone] Esperanza Gatica MD Unavailable +[phone] Esperanza Gatica MD Unavailable +[phone] Katrin Orellana PA-C Unavailable Cristina Hsieh [facility] Unavailable Cory Alfreda Liu PA-C Unavailable +[phone] Alfreda Ray Alexa KING Unavailable +[phone] Cristina Hsieh [facility] Unavailable [phone] Dakota Tatum MD Unavailable Dakota Tatum MD Unavailable [phone] Srinivas Marie DO Unavailable [phone] Reason for Visit * Reason Onset Date Comments Refill Request 02/06/2012 Ultram Encounter Details Date Type Department Care Team (Late st Contact Info) Description 02/06/2012 MyC [facility] [address] [place] [address], [address] [place] [address] [place] [address] [place] [address] Refill Request (Ultram ) Social History Tobacco Use Types Packs/Day Years Used Date Smoking Tobacco: Former Cigarettes Q uit: 06/21/1973 Smokeless Tobacco: Former Alcohol Use Standard Drinks/Week Comments Yes 0 (1 standard drink = 0.6 oz pur e alcohol) rarely Comments No Sex and Gender Information Value Date Recorded Sex Assigned at Female 08/17/2018 7:56 AM SUPERVISOR BROODER FARM Legal Sex Female 4:24 AM SUPERVISOR BROODER FARM Gender Identity Female 08/17/2018 7:56 AM SUPERVISOR BROODER FARM Sexual Orientation Straight 08/17/2018 7: 56 AM SUPERVISOR BROODER FARM documented as of this encounter Miscellaneous Notes * Telephone Encounter - Leigha Rinaldi - 02/08/2012 8:03 AM CDTMessage from [facility] [facility] Original authorizing provider: MD Alexandria Brannon would like a refill of the following medications: traMADol (ULTRAM) 50 MG tablet [Esperanza Gatica MD] Preferred pharmacy: [facility] Comment: Sent from my iPad documented in this encounter Plan of Treatment Upcoming Encounters Date Type Department Care Team (Late st Contact Info) Description 09/07/2024 10:00 AM CDT Office Visit [facility] [address] [place] [phone] Fransisco Eddy MD [address] [place] [address] 03/29/2025 3:40 PM CDT Office Visit [address] [phone] Alfreda Ray PA-C [address] [place] [address] 425662 documented as of this encounter Visit Diagnoses Diagnosis Knee pain Pain in joint, lower leg documented in this encounter Additional Health Concerns Infection Onset Date Last Indicated Resolved Time Rule Out COVID-19 05/08/2021 05/08/2021 05/09/2021 9:08 PM SUPERVISOR BROODER FARM documented as of this encounter Care Teams Clinical Molecular Geneticist Relationship Specialty Start Date End Date Esperanza Gatica MD PCP - General Family Practice 10/13/11 12/29/21 [place] [address] [place] [address] PCP - Assigned PCP 12/05/17 08/23/18 Alfreda Ray PA-C [address] [place] [address] PCP - General Family Medicine 12/30/21 [place] [address] [place] [address] Assigned PCP 12/05/17 09/30/19 [place] [address] [place] [address] Assigned PCP 10/01/19 03/02/20 [place] [address] [place] [address] Assigned PCP 03/03/20 05/25/20 [place] [address] [place] [address] Assigned PCP 05/26/20 09/28/20 [place] [address] [place] [address] Assigned PCP 09/29/20 07/31/22 Jesú[place] [address] [place] [address] Assigned Musculoskeletal Provider 10/20/20 04/17/22 Alfreda Ray PA-C [address] [place] [address] 288982 Referring Physician Family Medicine 12/31/21 Katrin Orellana PA-C [address] [place] [address] Physician Director Account Management Dermatology 12/31/21 Shanna Vang PA-C [address] [place] [address] Assigned Cancer Care Provider 01/10/22 Fransisco Eddy MD [address] [place] [address] [address] [place] [address] Assigned Rheumatology Provider 05/09/22 [place] [address] [facility] [address] Assigned Pain Medication Provider 06/29/22 09/04/22 [place] [address] [address] [facility] [place] [address] Assigned PCP 08/15/22 08/28/22 Katrin Orellana PA-C [address] [place] [address] Assigned Surgical Provider 08/15/22 02/10/24 [place] [address] [place] [address] [place] [address] Pharmacist Pharmacist 09/07/22 Alfreda Ray PA-C [address] [place] [address] Assigned Pain Medication Provider 09/05/22 09/10/23 Alfreda Ray PA-C [address] [place] [address] Assigned PCP 08/29/22 Cristina Hsieh [facility] 1600 [facility] [address] [place] [address] Assigned MTM Pharmacist 09/26/22 Dakota Tatum MD [address] [place] [address] Cardiovascular Disease 03/25/23 Dakota Tatum MD [address] [place] [address] Assigned Heart and Vascular Provider 05/01/23 [place] [address] [address], [facility] [address] [place] [address] Assigned Musculoskeletal Provider 04/12/24 documented as of this encounter
--- OUTSIDE RECORDS SUMMARY | 2024-06-23 00:29 | XMS_ITS | Encounter Summary ---
Author Organization [facility] Address [address] [place] [address] Care Team Providers Care Certified Prosthetist Name Role Phone Alfa Marcelo MD Primary Care Provider Ajay Dailey MD Primary Care Provider [phone] Esperanza Gatica MD Primary Care Provider Esperanza Gatica MD Unavailable +[phone] Esperanza Gatica MD Unavailable +[phone] Esperanza Gatica MD Unavailable +[phone] Esperanza Gatica MD Unavailable +[phone] Esperanza Gatica MD Unavailable +[phone] Esperanza Gatica MD Unavailable +[phone] Jesús Orourke MD Unavailable Alfreda Ray PA-C Primary Care Provider + Alfreda RayC Unavailable +[phone] Katrin OrellanaC Unavailable Shanna Vang-C Unavailable +[phone] Fransisco Eddy MD Unavailable +[phone] Esperanza Gatica MD Unavailable +[phone] Esperanza Gatica MD Unavailable +[phone] Katrin OrellanaC Unavailable Cristina Hsieh [facility] Unavailable +[phone] Cory Alfreda Liu PA-C Unavailable +[phone] Cory Alfreda Liu PA-C Unavailable +[phone] Cristina Hsieh [facility] Unavailable +[phone] Dakota Tatum MD Unavailable +[phone] Dakota Tatum MD Unavailable +[phone] Srinivas Marie DO Unavailable [phone] Reason for Visit * Reason Onset Date Comments MyChart Communication 10/09/2010 Encounter Details Date Type Department Care Team (Late st Contact Info) Description 10/09/2010 MyC Medical [address] [address] Alfa Marcelo MD [facility] 8080 [facility] 200 [place] [address] MyChart Communication Social History Tobacco Use Types Packs/Day Years Used Date Smoking Tobacco: Former Cigarettes Q uit: 06/21/1973 Alcohol Use Standard Drinks/Week Comments Yes 0 (1 standard drink = 0.6 oz pur e alcohol) rarely Comments No Sex and Gender Information Value Date Recorded Sex Assigned at Female 08/17/2018 7:56 AM STATE COMPTROLLER Legal Sex Female 4:24 AM STATE COMPTROLLER Gender Identity Female 08/17/2018 7:56 AM STATE COMPTROLLER Sexual Orientation Straight 08/17/2018 7: 56 AM STATE COMPTROLLER documented as of this encounter Miscellaneous Notes * Telephone Encounter - Fartun Mayes - 10/09/2010 10:17 AM CDT Please see [employer] msg and advise. Thank you. documented in this encounter Plan of Treatment Upcoming Encounters Date Type Department Care Team (Late st Contact Info) Description 09/07/2024 10:00 AM CDT Office Visit [facility] [address] [place] [phone] Fransisco Eddy MD [address] [place] [address] 633675 03/29/2025 3:40 PM CDT Office Visit [address] [phone] Alfreda Ray PA-C [address] [place] [address] [id number] documented as of this encounter Visit Diagnoses Not on filedocumented in this encounter Additional Health Concerns Infection Onset Date Last Indicated Resolved Time Rule Out COVID-19 05/08/2021 05/08/2021 05/09/2021 9:08 PM STATE COMPTROLLER documented as of this encounter Care Teams Certified Prosthetist Relationship Specialty Start Date End Date Alfa Marcelo MD [address] [address] PCP - General 01/22/04 01/28/11 Ajay Dailey MD [address] [address] PCP - General Family Practice 01/29/11 10/12/11 Esperanaz Gatica MD [facility] [address] [place] [address] [address] PCP - General Family Practice 10/13/11 12/29/21 [place] [address] [place] [address] PCP - Assigned PCP 12/05/17 08/23/18 Alfreda Ray PA-C [address] [place] [address] PCP - General Family Medicine 12/30/21 [place] [address] [place] [address] Assigned PCP 12/05/17 09/30/19 [place] [address] [place] [address] Assigned PCP 10/01/19 03/02/20 [place] [address] [place] [address] Assigned PCP 03/03/20 05/25/20 [place] [address] [place] [address] Assigned PCP 05/26/20 09/28/20 [place] [address] [place] [address] Assigned PCP 09/29/20 07/31/22 Jesú[place] [address] [place] [address] Assigned Musculoskeletal Provider 10/20/20 04/17/22 Alfreda Ray PA-C [address] [place] [address] Referring Physician Family Medicine 12/31/21 Katrin Orellana PA-C [address] [place] [address] Physician Consumer Insight Manager Dermatology 12/31/21 Shanna Vang PA-C [address] [place] [address] 423134 Assigned Cancer Care Provider 01/10/22 Fransisco Eddy MD [address] [place] [address] 152535 Assigned Rheumatology Provider 05/09/22 [place] [address] [address] [address] Assigned Pain Medication Provider 06/29/22 09/04/22 [place] [address] [place] [address] Assigned PCP 08/15/22 08/28/22 Katrin Orellana PA-C [address] [place] [address] 494635 Assigned Surgical Provider 08/15/22 02/10/24 Cristina Hsieh, [facility] [address] [facility] [place] [address] Pharmacist Pharmacist 09/07/22 Alfreda Ray PA-C [address] [place] [address] Assigned Pain Medication Provider 09/05/22 09/10/23 Alfreda Ray PA-C [address] [place] [address] Assigned PCP 08/29/22 Cristina Hsieh, [facility] [address] [address] Assigned MTM Pharmacist 09/26/22 Dakota Tatum MD [address] [place] [address] Cardiovascular Disease 03/25/23 Dakota Tatum MD [address] [place] [address] Assigned Heart and Vascular Provider 05/01/23 [place] [address] [facility], [address] [address] Assigned Musculoskeletal Provider 04/12/24 documented as of this encounter
--- OUTSIDE RECORDS SUMMARY | 2024-06-23 00:29 | XMS_ITS | Encounter Summary ---
Author Organization [facility] Address [address] [place] [address] Care Team Providers Care Mainspring Torque Tester Name Role Phone Ajay Vick MD Primary Care Provider +[phone] Esperanza Gatica MD Primary Care Provider + Esperanza Gatica MD Unavailable + Esperanza Gatica MD Unavailable + Esperanza Gatica MD Unavailable + Esperanza Gatica MD Unavailable + Esperanza Gatica MD Unavailable + Esperanza Gatica MD Unavailable +[phone] Jesús Orourke MD Unavailable Alfreda RayC Primary Care Provider + Alfreda Ray-Gallito Unavailable +[phone] Katrin Orellana PA-C Unavailable Shanna Vang-C Unavailable +[phone] Fransisco Eddy MD Unavailable +[phone] Esperanza Gatica MD Unavailable +[phone] Esperanza Gatica MD Unavailable +[phone] Katrin Orellana PA-C Unavailable [phone] Cristina Hsieh [facility] Unavailable Ho Raymustapha Liu PA-C Unavailable [phone] Ho Raymustapha Liu PA-C Unavailable Cristina Hsieh [facility] Unavailable Dakota Tatum MD Unavailable [phone] Dakota Tatum MD Unavailable [phone] Srinivas Marie DO Unavailable [phone] Reason for Visit * Reason Onset Date Comments Refill Request 07/23/2011 tramadol Encounter Details Date Type Department Care Team (Late st Contact Info) Description 07/23/2011 MyC Refill [address] [address] Ajay Vick MD [address] [facility] [place] [address] Refill Request (tramadol) Social History Tobacco Use Types Packs/Day Years Used Date Smoking Tobacco: Former Cigarettes Q uit: 06/21/1973 Smokeless Tobacco: Former Alcohol Use Standard Drinks/Week Comments Yes 0 (1 standard drink = 0.6 oz pur e alcohol) rarely Comments No Sex and Gender Information Value Date Recorded Sex Assigned at Female 08/17/2018 7:56 AM MARKET RESEARCH INTERVIEWER Legal Sex Female 4:24 AM MARKET RESEARCH INTERVIEWER Gender Identity Female 08/17/2018 7:56 AM MARKET RESEARCH INTERVIEWER Sexual Orientation Straight 08/17/2018 7: 56 AM MARKET RESEARCH INTERVIEWER documented as of this encounter Miscellaneous Notes * Telephone Encounter - Sharon Sosa - 07/23/2011 9:04 AM CST Medication requested: Ultram 50 mg tabs Date of last office visit related to request: 03/31/11 Date last filled: 05/25/11 Qty #[phone] [id number] This is not a PSO medication, forwarded to provider for authorization. Michelle Sosa RN ET RESEARCH INTERVIEWER * Telephone Encounter - Kassandra David - 07/23/2011 9:01 AM CST TRAMADOL Last OV: 03/31/11 Reason for visit: right knee pain Last fill date: 05/25/11 #90 Unable to fill per standing order routed to Dr. Vick for approval. Kassandra David RN ET RESEARCH INTERVIEWER * Telephone Encounter - Kassandra David - 07/23/2011 8:56 AM [facility] Original authorizing provider: AJAY VICK MD Barbara J Pellicci would like a refill of the following medications: tramadol (ULTRAM) 50 MG tablet [AJAY VICK MD] Preferred pharmacy: [facility] Comment: ET RESEARCH INTERVIEWER documented in this encounter Plan of Treatment Upcoming Encounters Date Type Department Care Team (Late st Contact Info) Description 09/07/2024 10:00 AM CDT Office Visit [facility] [address] [phone] Fransisco Eddy MD [address] [place] [address] 03/29/2025 3:40 PM CDT Office Visit [address] [phone] Alfreda Ray PA-C [address] [place] [address] [phone] documented as of this encounter Visit Diagnoses Diagnosis Knee pain Pain in joint, lower leg documented in this encounter Additional Health Concerns Infection Onset Date Last Indicated Resolved Time Rule Out COVID-19 05/08/2021 05/08/2021 05/09/2021 9:08 PM MARKET RESEARCH INTERVIEWER documented as of this encounter Care Teams Mainspring Torque Tester Relationship Specialty Start Date End Date Ajay Vick MD PCP - General Family Practice 01/29/11 10/12/11 Esperanza Gatica MD PCP - General Family Practice 10/13/11 12/29/21 [place] [address] [place] [address] PCP - Assigned PCP 12/05/17 08/23/18 Alfreda Ray PA-C [address] [place] [address] PCP - General Family Medicine 12/30/21 [place] [address] [place] [address] Assigned PCP 12/05/17 09/30/19 [place] [address] [place] [address] Assigned PCP 10/01/19 03/02/20 [place] [address] [place] [address] Assigned PCP 03/03/20 05/25/20 [place] [address] [place] [address] Assigned PCP 05/26/20 09/28/20 [place] [address] [address] [address] Assigned PCP 09/29/20 07/31/22 Jesú[place] [address] [place] [address] Assigned Musculoskeletal Provider 10/20/20 04/17/22 Alfreda Ray PA-C [address] [place] [address] [phone] Referring Physician Family Medicine 12/31/21 Katrin Orellana PA-C [address] [place] [address] [address] [place], [place] 888275 Physician Special Agent Dermatology 12/31/21 Shanna Vang PA-C [address] [phone] Assigned Cancer Care Provider 01/10/22 Fransisco Eddy MD [address] [place] [address] 519015 Assigned Rheumatology Provider 05/09/22 [place] [address] [address] [address] Assigned Pain Medication Provider 06/29/22 09/04/22 [place] [address] [address] [address] Assigned PCP 08/15/22 08/28/22 Katrin Orellana PA-C [address] [facility] [address] [place] [address] Assigned Surgical Provider 08/15/22 02/10/24 Cristina Hsieh [facility] [address] [facility] [place] [address] Pharmacist Pharmacist 09/07/22 Aflreda Ray PA-C [address] [place] [address] 315122 Assigned Pain Medication Provider 09/05/22 09/10/23 Alfreda Ray PA-C [address] [place] [address] 306372 Assigned PCP 08/29/22 Cristina Hsieh [facility] [address] [address] Assigned MTM Pharmacist 09/26/22 Dakota Tatum MD [address] [place] [address] Cardiovascular Disease 03/25/23 Dakota Tatum MD [address] [place] [address] Assigned Heart and Vascular Provider 05/01/23 [place] [address] [address] Assigned Musculoskeletal Provider 04/12/24 documented as of this encounter
--- OUTSIDE RECORDS SUMMARY | 2024-06-23 00:29 | XMS_ITS | Encounter Summary ---
Author Organization [facility] Address [address] [place] [address] Care Team Providers Care Flow Coordinator Name Role Phone Esperanza Gatica MD Primary Care Provider + Esperanza Gatica MD Unavailable +[phone] Esperanza Gatica MD Unavailable +[phone] Esperanza Gatica MD Unavailable +[phone] Esperanza Gatica MD Unavailable +[phone] Esperanza Gatica MD Unavailable +[phone] Esperanza Gatica MD Unavailable +[phone] Jesús Orourke MD Unavailable Alfreda aRyC Primary Care Provider + Alfreda Ray PA-C Unavailable + [phone] Katrin Orellana PA-C Unavailable [phone] Shanna VangC Unavailable +[phone] Fransisco Eddy MD Unavailable [phone] Esperanza Gatica MD Unavailable +[phone] Esperanza Gatica MD Unavailable +[phone] Katrin Orellana PA-C Unavailable Cristina Hsieh [facility] Unavailable Alfreda Ray PA-C Unavailable +[phone] Ray, Alfreda Liu PA-C Unavailable +[phone] Cristina Hsieh [facility] Unavailable Dakota Tatum MD Unavailable Dakota Tatum MD Unavailable [phone] Srinivas Marie DO Unavailable [phone] Reason for Visit * Reason Onset Date Comments Refill Request 01/19/2012 Ambien Encounter Details Date Type Department Care Team (Late st Contact Info) Description 01/19/2012 MyC Refill [address] [phone] [place] [address] [place] [address] Refill Request (Ambien) Social History Tobacco Use Types Packs/Day Years Used Date Smoking Tobacco: Former Cigarettes Q uit: 06/21/1973 Smokeless Tobacco: Former Alcohol Use Standard Drinks/Week Comments Yes 0 (1 standard drink = 0.6 oz pur e alcohol) rarely Comments No Sex and Gender Information Value Date Recorded Sex Assigned at Female 08/17/2018 7:56 AM OLIVE PICKER Legal Sex Female 4:24 AM OLIVE PICKER Gender Identity Female 08/17/2018 7:56 AM OLIVE PICKER Sexual Orientation Straight 08/17/2018 7: 56 AM OLIVE PICKER documented as of this encounter Miscellaneous [...] MG tablet [Esperanza Gatica MD] Preferred pharmacy: [facility] Comment: Sent from my iPhone documented in this encounter Plan of Treatment Upcoming Encounters Date Type Department Care Team (Late st Contact Info) Description 09/07/2024 10:00 AM CDT Office Visit [address] [place] [phone] Fransisco Eddy MD [address] [place] [address] 866865 03/29/2025 3:40 PM CDT Office Visit [address] [phone] Alfreda Ray PA-C [address] [place] [address] [phone] documented as of this encounter Visit Diagnoses Diagnosis Insomnia, unspecified documented in this encounter Additional Health Concerns Infection Onset Date Last Indicated Resolved Time Rule Out COVID-19 05/08/2021 05/08/2021 05/09/2021 9:08 PM OLIVE PICKER documented as of this encounter Care Teams Flow Coordinator Relationship Specialty Start Date End Date Esperanza Gatica MD PCP - General Family Practice 10/13/11 12/29/21 [place] [address] [place] [address] PCP - Assigned PCP 12/05/17 08/23/18 Alfreda Ray PA-C [address] [place] [address] PCP - General Family Medicine 12/30/21 [place] [address] [place] [address] Assigned PCP 12/05/17 09/30/19 [place] [address] [place] [address] Assigned PCP 10/01/19 03/02/20 [place] [address] [address] [place] [address] Assigned PCP 03/03/20 05/25/20 [place] [address] [address] [place] [address] Assigned PCP 05/26/20 09/28/20 [place] [address] [place] [address] Assigned PCP 09/29/20 07/31/22 Jesú[place] [address] [place] [address] Assigned Musculoskeletal Provider 10/20/20 04/17/22 Alfreda Ray PA-C [address] [place] [address] Referring Physician Family Medicine 12/31/21 Katrin Orellana PA-C [address] [address] Physician Granite Setter Dermatology 12/31/21 Shanna Vang PA-C [address] [address] Assigned Cancer Care Provider 01/10/22 Fransisco Eddy MD [address] [place] [address] 004115 Assigned Rheumatology Provider 05/09/22 [place] [address] [place] [address] Assigned Pain Medication Provider 06/29/22 09/04/22 [place] [address] [address] [address] Assigned PCP 08/15/22 08/28/22 Katrin Orellana PA-C [address] [place] [address] Assigned Surgical Provider 08/15/22 02/10/24 Cristina Hsieh [facility] [address] [facility] [place] [address] Pharmacist Pharmacist 09/07/22 Alfreda Ray PA-C [address] [place] [address] Assigned Pain Medication Provider 09/05/22 09/10/23 Alfreda Ray PA-C [address] [place] [address] Assigned PCP 08/29/22 Cristina Hsieh [facility] [address] [facility] [address] [place] [address] Assigned MTM Pharmacist 09/26/22 Dakota Tatum MD [address] [place] [address] 106055 Cardiovascular Disease 03/25/23 Dakota Tatum MD [address] [place] [address] 586735 Assigned Heart and Vascular Provider 05/01/23 [place] [address] [address], [facility] [address] [place] [address] Assigned Musculoskeletal Provider 04/12/24 documented as of this encounter
--- OUTSIDE RECORDS SUMMARY | 2024-06-23 00:30 | XMS_ITS | Encounter Summary ---
Author Organization [facility] Address [address] [place] [address] Care Team Providers Care Matrix Inspector Name Role Phone Alfa Marcelo MD Primary Care Provider Ajay Dailey MD Primary Care Provider [phone] Esperanza Gatica MD Primary Care Provider Esperanza Gatica MD Unavailable +[phone] Esperanza Gatica MD Unavailable +[phone] Esperanza Gatica MD Unavailable +[phone] Esperanza Gatica MD Unavailable +[phone] Esperanza Gatica MD Unavailable +[phone] Esperanza Gatica MD Unavailable +[phone] Jesús Orourke MD Unavailable Alfreda Ray PA-C Primary Care Provider + Alfreda RayC Unavailable +[phone] Ktarin OrellanaC Unavailable +[phone] Shanna Vang-C Unavailable +[phone] Fransisco Eddy MD Unavailable +[phone] Esperanza Gatica MD Unavailable +[phone] Esperanza Gatica MD Unavailable +[phone] Katrin OrellanaC Unavailable Cristina Hsieh [facility] Unavailable +[phone] Cory Alfreda Liu PA-C Unavailable [phone] Cory Alfreda Liu PA-C Unavailable [phone] Cristina Hsieh [facility] Unavailable [phone] Dakota Tatum MD Unavailable [phone] Dakota Tatum MD Unavailable [phone] Srinivas Marie DO Unavailable [phone] Encounter Details Date Type Department Care Team (Late st Contact Info) Description 01/04/2008 MyC Medical Advice [address] [phone] Becky Leo MD [address] [address] Social History Tobacco Use Types Packs/Day Years Used Date Smoking Tobacco: Former Cigarettes Q uit: 06/21/1973 Alcohol Use Standard Drinks/Week Comments Yes 0 (1 standard drink = 0.6 oz pur e alcohol) rarely Comments No Sex and Gender Information Value Date Recorded Sex Assigned at Female 08/17/2018 7:56 AM GLASS TINTER Legal Sex Female 4:24 AM GLASS TINTER Gender Identity Female 08/17/2018 7:56 AM GLASS TINTER Sexual Orientation Straight 08/17/2018 7: 56 AM GLASS TINTER documented as of this encounter Plan of Treatment Upcoming Encounters Date Type Department Care Team (Late st Contact Info) Description 09/07/2024 10:00 AM CDT Office Visit [facility] [address] [phone] Fransisco Eddy MD [address] [place] [address] 03/29/2025 3:40 PM CDT Office Visit [address] [phone] Alfreda Ray PA-C [address] [place] [address] documented as of this encounter Visit Diagnoses Not on filedocumented in this encounter Additional Health Concerns Infection Onset Date Last Indicated Resolved Time Rule Out COVID-19 05/08/2021 05/08/2021 05/09/2021 9:08 PM GLASS TINTER documented as of this encounter Care Teams Matrix Inspector Relationship Specialty Start Date End Date Alfa Marcelo MD [facility] [address] [place] [address] PCP - General 01/22/04 01/28/11 Ajay Dailey MD [facility] [address] [place] [address] PCP - General Family Practice 01/29/11 10/12/11 Esperanza Gatica MD [facility], [facility] [address] [place] [address] PCP - General Family Practice 10/13/11 12/29/21 [place] [address] [place] [address] PCP - Assigned PCP 12/05/17 08/23/18 Alfreda Ray PA-C [address] [place] [address] 577512 PCP - General Family Medicine 12/30/21 [place] [address] [address] [address] Assigned PCP 12/05/17 09/30/19 [place] [address] [address] [address] Assigned PCP 10/01/19 03/02/20 [place] [address] [address] [address] Assigned PCP 03/03/20 05/25/20 [place] [address] [address] [address] Assigned PCP 05/26/20 09/28/20 [place] [address] [address] [address] Assigned PCP 09/29/20 07/31/22 Jesú[place] [address] [place], [place] 383[address] Assigned Musculoskeletal Provider 10/20/20 04/17/22 Alfreda Ray PA-C [address] [place] [address] [phone] Referring Physician Family Medicine 12/31/21 Katrin Orellana PA-C [address] [place] [address] 883945 Physician Director Utilization Management Dermatology 12/31/21 Shanna Vang PA-C [address] [place] [address] Assigned Cancer Care Provider 01/10/22 Fransisco Eddy MD [address] [place] [address] 267445 Assigned Rheumatology Provider 05/09/22 [place] [address] [place] [address] Assigned Pain Medication Provider 06/29/22 09/04/22 [place] [address] [place] [address] Assigned PCP 08/15/22 08/28/22 Katrin Orellana PA-C [address] [place] [address] Assigned Surgical Provider 08/15/22 02/10/24 Cristina Hsieh [facility] [address] [place] [address] [place] [address] Pharmacist Pharmacist 09/07/22 Alfreda Ray PA-C [address] [place] [address] 895692 Assigned Pain Medication Provider 09/05/22 09/10/23 Alfreda Ray PA-C [address] [place] [address] Assigned PCP 08/29/22 Cristina Hsieh, [facility] [address] [facility] [address] [place] [address] Assigned MTM Pharmacist 09/26/22 Dakota Tatum MD [address] [place] [address] [phone] Cardiovascular Disease 03/25/23 Dakota Tatum MD [address] [place] [address] 687005 Assigned Heart and Vascular Provider 05/01/23 [place] [address] [address], [facility] [address] [place] [address] Assigned Musculoskeletal Provider 04/12/24 documented as of this encounter
--- OUTSIDE RECORDS SUMMARY | 2024-06-23 00:30 | XMS_ITS | Continuity of Care Document ---
Author Name [facility]OP User [email or web address] Address Unknown Organization Unknown Address Unknown Procedures FILTER APPLIED:Only known Procedures with Onset Date within the last 5 years Procedure Date Procedure Provider Additional Inform ation Status NT PROBNP INPATIENT (28441) Completed Encounters FILTER APPLIED:Only known Encounters with Admission Date within the last 5 years Encounter Location Admission Discharge Billing Code Price Accuracy Supervisor Aby anand Outpatient [facility] Outpatient [facility] Outpatient [facility] Outpatient [facility] Outpatient [facility] Outpatient [facility] Outpatient [facility] Outpatient [facility] Outpatient [facility] Recurring Patient [facility] Emergency [facility] Out[facility] Outpatient [facility] Outpatient [facility] Outpatient [facility] Outpatient [facility] Outpatient [facility] Outpatient [facility] Outpatient [facility]
--- OUTSIDE RECORDS SUMMARY | 2024-06-23 00:30 | XMS_ITS | Clinical Summary ---
Author Organization [facility] Address [address], [place] [address] Care Team Providers Care Tank Builder And Erector Name Role Phone Esperanza Gatica MD Primary Care Provider + [phone] Source Comments You are receiving this document as you are listed as the primary care provider,follow-up provider, or the patient has been referred to you for consultation.This is in compliance with the Medicare andThe [facility] EHR Incentive Program,which states Providers who transition their patient to another setting of careor provider of care or refers their patient to another provider of care shouldprovide summary care record for each transition of care or referral. [facility] Allergies No known active allergies Medications Medication Sig Dispensed Refills Start Date End Date Status Cholecalciferol 1.25 MG (34763 UT) TABS Take by mouth. Ac tive [...] Comments Blood Pressure 144/67 05/12/2021 3:11 PM PROJECT CONTROL OFFICER Pulse 66 05/12/2021 3:11 PM PROJECT CONTROL OFFICER Temperature - - Respiratory Rate 11 05/12/2021 3:11 PM PROJECT CONTROL OFFICER Oxygen Saturation - - Inhaled Oxygen Concentration [...] age to complete this topic Care Teams Tank Builder And Erector Relationship Specialty Start [place] [address] [place] [address] PCP - General Family Practice 01/02/21
--- OUTSIDE RECORDS SUMMARY | 2024-06-23 00:30 | XMS_ITS | Encounter Summary ---
Author Organization [facility] Address [address] [place] [address] Care Team Providers Care Hand Loom Weaver Name Role Phone Alfa Marcelo MD Primary Care Provider Ajay Dailey MD Primary Care Provider [phone] Esperanza Gatica MD Primary Care Provider Esperanza Gatica MD Unavailable +[phone] Esperanza Gatica MD Unavailable [phone] Esperanza Gatica MD Unavailable +[phone] Esperanza Gatica MD Unavailable +[phone] Esperanza Gatica MD Unavailable [phone] Esperanza Gatica MD Unavailable +[phone] Jesús Orourke MD Unavailable Alfreda Ray PA-C Primary Care Provider + Alfreda RayC Unavailable [phone] Katrin OrellanaC Unavailable [phone] Shanna Vang-C Unavailable +[phone] Fransisco Eddy MD Unavailable +[phone] Esperanza Gatica MD Unavailable +[phone] Esperanza Gatica MD Unavailable +[phone] Katrin Orellana-C Unavailable Cristina Hsieh [facility] Unavailable [phone] Cory Alfreda Liu PA-C Unavailable +[phone] Cory Alfreda LOERAC Unavailable +[phone] Cristina Hsieh [facility] Unavailable [phone] Dakota Tatum MD Unavailable [phone] Dakota Tatum MD Unavailable [phone] Srinivas Marie DO Unavailable [phone] Reason for Visit * Reason Onset Date Comments MyChart Communication 07/05/2007 blood pres sure Encounter Details Date Type Department Care Team (Latest Contact Info) Description 07/05/2007 MyC Medical Advice [address] [address] [place] [address] MyChart Communication (blood pressure) Social History Tobacco Use Types Packs/Day Years Used Date Smoking Tobacco: Former Cigarettes Q uit: 06/21/1973 Alcohol Use Standard Drinks/Week Comments Yes 0 (1 standard drink = 0.6 oz pur e alcohol) rarely Comments No Sex and Gender Information Value Date Recorded Sex Assigned at Female 08/17/2018 7:56 AM WALLCOVERING HANGER Legal Sex Female 4:24 AM WALLCOVERING HANGER Gender Identity Female 08/17/2018 7:56 AM WALLCOVERING HANGER Sexual Orientation Straight 08/17/2018 7: 56 AM WALLCOVERING HANGER documented as of this encounter Plan of Treatment Upcoming Encounters Date Type Department Care Team (Late st Contact Info) Description 09/07/2024 10:00 AM CDT Office Visit [address] [place] [phone] Fransisco Eddy MD [address] [place] [address] 03/29/2025 3:40 PM CDT Office Visit [address] [address] Alfreda Ray PA-C [address] [place] [address] 750872 documented as of this encounter Visit Diagnoses Not on filedocumented in this encounter Additional Health Concerns Infection Onset Date Last Indicated Resolved Time Rule Out COVID-19 05/08/2021 05/08/2021 05/09/2021 9:08 PM WALLCOVERING HANGER documented as of this encounter Care Teams Hand Loom Weaver Relationship Specialty Start Date End Date Alfa Marcelo MD [address] [address] PCP - General 01/22/04 01/28/11 Ajay Dailey MD [address] [address] PCP - General Family Practice 01/29/11 10/12/11 Esperanza Gatica MD [address] [address] PCP - General Family Practice 10/13/11 12/29/21 [place] [address] [place] [address] PCP - Assigned PCP 12/05/17 08/23/18 Alfreda Ray PA-C [address] [place] [address] PCP - General Family Medicine 12/30/21 [place] [address] [place] [address] Assigned PCP 12/05/17 09/30/19 [place] [address] [place] [address] Assigned PCP 10/01/19 03/02/20 [place] [address] [place] [address] Assigned PCP 03/03/20 05/25/20 [place] [address] [place] [address] Assigned PCP 05/26/20 09/28/20 [place] [address] [place] [address] Assigned PCP 09/29/20 07/31/22 [place] [address] [place] [address] Assigned Musculoskeletal Provider 10/20/20 04/17/22 Alfreda Ray PA-C [address] [place] [address] Referring Physician Family Medicine 12/31/21 Katrin Orellana PA-C [address] [place] [address] Physician Examination [facility] 12/31/21 Shanna Vang PA-C [address] [place] [address] Assigned Cancer Care Provider 01/10/22 Fransisco Eddy MD [address] [place] [address] Assigned Rheumatology Provider 05/09/22 [place] [address] [place] [address] Assigned Pain Medication Provider 06/29/22 09/04/22 [place] [address] [address] [place] [address] Assigned PCP 08/15/22 08/28/22 Katrin Orellana PA-C [address] [place] [address] Assigned Surgical Provider 08/15/22 02/10/24 Cristina Hsieh [facility] [address] [place] [address] Pharmacist Pharmacist 09/07/22 Alfreda Ray PA-C [address] [place] [address] Assigned Pain Medication Provider 09/05/22 09/10/23 Alfreda Ray PA-C [address] [place] [address] 036322 Assigned PCP 08/29/22 Cristina Hsieh, [facility] [address] [facility] [address] [place] [address] Assigned MTM Pharmacist 09/26/22 Dakota Tatum MD [address] [place] [address] Cardiovascular Disease 03/25/23 Dakota Tatum MD [address] [place] [address] Assigned Heart and Vascular Provider 05/01/23 [place] [address] [address], [address] [address] Assigned Musculoskeletal Provider 04/12/24 documented as of this encounter
--- OUTSIDE RECORDS SUMMARY | 2024-06-23 00:30 | XMS_ITS | Encounter Summary ---
Author Organization [facility] Address [address] [place] [address] Care Team Providers Care Yard Foreman Name Role Phone Alfa Marcelo MD Primary Care Provider Ajay Dailey MD Primary Care Provider [phone] Esperanza Gatica MD Primary Care Provider Esperanza Gatica MD Unavailable [phone] Esperanza Gatica MD Unavailable [phone] Esperanza Gatica MD Unavailable +[phone] Esperanza Gatica MD Unavailable [phone] Esperanza Gatica MD Unavailable [phone] Esperanza Gatica MD Unavailable [phone] Jesús Orourke MD Unavailable Alfreda Ray PA-C Primary Care Provider + Alfreda RayC Unavailable [phone] Katrin OrellanaC Unavailable Shanna Vang-C Unavailable +[phone] Fransisco Eddy MD Unavailable [phone] Esperanza Gatica MD Unavailable [phone] Esperanza Gatica MD Unavailable [phone] Katrin OrellanaC Unavailable Cristina Hsieh [facility] Unavailable [phone] Cory Alfreda Liu PA-C Unavailable [phone] Cory Alfreda Liu PA-C Unavailable +[phone] Cristina Hsieh [facility] Unavailable [phone] Dakota Tatum MD Unavailable [phone] Dakota Tatum MD Unavailable [phone] Srinivas Marie DO Unavailable [phone] Encounter Details Date Type Department Care Team (Late st Contact Info) Description 11/08/2007 MyC Medical Advice [address] [address] Becky Leo MD [address] [address] Social History Tobacco Use Types Packs/Day Years Used Date Smoking Tobacco: Former Cigarettes Q uit: 06/21/1973 Alcohol Use Standard Drinks/Week Comments Yes 0 (1 standard drink = 0.6 oz pur e alcohol) rarely Comments No Sex and Gender Information Value Date Recorded Sex Assigned at Female 08/17/2018 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 Legal Sex Female 4:24 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 Gender Identity Female 08/17/2018 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 Sexual Orientation Straight 08/17/2018 7: 56 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 documented as of this encounter Plan of Treatment Upcoming Encounters Date Type Department Care Team (Late st Contact Info) Description 09/07/2024 10:00 AM CDT Office Visit [facility] [address] [address] Fransisco Eddy MD [address] [place] [address] 03/29/2025 3:40 PM CDT Office Visit [address] [phone] Alfreda Ray PA-C [address] [place] [address] documented as of this encounter Visit Diagnoses Not on filedocumented in this encounter Additional Health Concerns Infection Onset Date Last Indicated Resolved Time Rule Out COVID-19 05/08/2021 05/08/2021 05/09/2021 9:08 PM SUGAR MILL WORKER documented as of this encounter Care Teams Yard Foreman Relationship Specialty Start Date End Date Alfa Marcelo MD REPLACED BY [facility] [address] [place] [address] PCP - General 01/22/04 01/28/11 Ajay Dailey MD REPLACED BY [facility] [address] [place] [address] PCP - General Family Practice 01/29/11 10/12/11 Esperanza Gatica MD REPLACED BY [facility] [address] [place] [address] PCP - General Family Practice 10/13/11 12/29/21 [place] [address] [place] [address] PCP - Assigned PCP 12/05/17 08/23/18 Alfreda Ray PA-C [address] [place] [address] [id number] PCP - General Family Medicine 12/30/21 [place] [address] [address] [address] Assigned PCP 12/05/17 09/30/19 [place] [address] [address] [address] Assigned PCP 10/01/19 03/02/20 [place] [address] [address] [address] Assigned PCP 03/03/20 05/25/20 [place] [address] [address] [address] Assigned PCP 05/26/20 09/28/20 [place] [address] [address] [address] Assigned PCP 09/29/20 07/31/22 Jesú[place] [address] [place], [place] [address] Assigned Musculoskeletal Provider 10/20/20 04/17/22 Alfreda Ray PA-C [address] [place] [address] [id number] Referring Physician Family Medicine 12/31/21 Katrin Orellana PA-C [address] [place] [address] [phone] Physician Semaphore Operator Dermatology 12/31/21 Shanna Vang PA-C [address] [place] [address] Assigned Cancer Care Provider 01/10/22 Fransisco Eddy MD [address] [place] [address] [id number] Assigned Rheumatology Provider 05/09/22 [place] [address] [place] [address] Assigned Pain Medication Provider 06/29/22 09/04/22 [place] [address] [place] [address] Assigned PCP 08/15/22 08/28/22 Katrin Orellana PA-C [address] [place] [address] Assigned Surgical Provider 08/15/22 02/10/24 Cristina Hsieh [facility] [address] [place] [address] [place] [address] Pharmacist Pharmacist 09/07/22 Alfreda Ray PA-C [address] [place] [address] [phone] Assigned Pain Medication Provider 09/05/22 09/10/23 Alfreda Ray PA-C [address] [place] [address] Assigned PCP 08/29/22 Cristina Hsieh, [facility] [address] [facility] [address] [place] [address] Assigned MTM Pharmacist 09/26/22 Dakota Tatum MD [address] [place] [address] [phone] Cardiovascular Disease 03/25/23 Dakota Tatum MD [address] [place] [address] 628635 Assigned Heart and Vascular Provider 05/01/23 [place] [address] [address], [facility] [address] [place] [address] Assigned Musculoskeletal Provider 04/12/24 documented as of this encounter
[2024-06-23] MEDS: ACETAMINOPHEN 325 MG TABLET 650 MG PO ×3 (00:34→15:53)
[2024-06-23] MEDS: 0.9 % SODIUM CHLORIDE 1000 ml 1,000 ML IV (00:34)
[2024-06-23 00:59] LABS: PCR FLU A Negative PCR FLU A (Negative); PCR FLU B Negative PCR FLU B (Negative); PCR RSV Negative PCR RSV (Negative); SARS PCR* POSITIVE SARS-CoV-2 (Negative)
[2024-06-23 01:38] LABS: Appearance Urine Clear (Clear); Bilirubin Urine Negative (Negative); Blood Urine Trace-lysed (Negative); Color Urine Yellow (Yellow); Glucose Urine Negative (Negative); Ketones Urine Trace (Negative); Leukocyte Esterase Urine 1+ (Negative); Nitrite Urine Negative (Negative); Protein Urine Trace (Negative); Specific Gravity Urine >= 1.030 (1.000-1.030); Urobilinogen Urine 0.2 (0.2-1.0); pH Urine 5.5 (5.0-8.5)
[2024-06-23 01:52] LABS: Bacteria Urine Few; RBC Urine 0-2 (0-2); Squamous Epithelial Cell Urine Moderate (None-Few)
--- NOTE | 2024-06-23 07:51 | PC.NURSE ---
Shift note ([id number]): Patient arrived from ED at 0438. Pleasant, alert and oriented. Trouble finding?words at times. Pure Wick patent. Denies any discomfort with urination however does report frequency.?
--- NOTE | 2024-06-23 08:24 | W.PM.TELEH&P ---
Telehealth- H&P: HPI History of Present Illness Date Seen: 06/23/24 Chief complaint: Fall, hit head, brain fog, uti Narrative: Alexandria Bradshaw is seen as an Interactive Telehealth visit. Alexandria Bradshaw is a 84 year old femal with PMHx significant for HTN, DVT on xarelto, RA on renvoq and prednisone, colon ca in remission presented to ED with confusion and weakness. Pt was initially confused in ER however she was awake and able to provide detailed history at the time of interview. Pt reports she had an episode of at the granddaughter's house. She says grand daughter house entrance had high stairs and she had nothing to hold onto and fell and got bruised however she carried on with no significant injury and did not get evaluated for that. Today patient was more confused and was brought in by the for concerns of change of mental status. Patient also reports she has been dealing with UTI since and has been treated with 2 antibiotics so far. She complains of mild urinary symptoms. she also complains of lower abdominal discomfort, does complain of some nausea, she has a mild cough. She has been afebrile in the emergency department. She does report few loose stool episodes yesterday. In the emergency department she tested positive for COVID. White count was 10.7. Hemoglobin 11.4 and platelets 229, UA showed 1+ leukocyte with bacteria's. [facility] Social History What is your current living situation?: I presently have a place to live Problems where you live: no known problems Problems where you live details: n/a In the past 12 months, utilities in danger of being shut off: no In past 12 months, lack of transportation kept you from medical appts, meetings, work, or getting things needed for daily living: no In the past 12 mos, have been you worried that your food would run out before you had money to buy more?: never true In the past 12 mos, the food you bought just didn't last and you didn't have money to buy more?: never true Smoking Status: Former smoker Nicotine containing products detail: Back when I was 19 years old. How often do you have a drink containing alcohol: 2-4 times a month How many standard drinks containing alcohol do you have on a typical day: 1 or 2 AUDIT-C Alcohol total score: 2 Non-prescribed substance use: denies use How often does anyone, including family, friends and others, physically hurt you: never How often does anyone, including family, friends and others, insult or talk down to you: never How often does anyone, including family, friends and others, threaten you with harm: never How often does anyone, including family, friends and others, scream or curse at you: never Meds Home Medications and Allergies Home Medications ?Medication ?Instructions ?Recorded ?Confirmed ?Type atenolol 25 mg tablet 25 mg PO DAILY 06/22/24 06/22/24 History duloxetine 60 mg capsule,delayed 60 mg PO QPM 06/22/24 06/22/24 History release gabapentin 300 mg capsule 600 mg PO 08,12 06/22/24 06/23/24 History lisinopril 10 1 tab PO DAILY 06/22/24 06/22/24 History mg-hydrochlorothiazide 12.5 mg tablet naltrexone 50 mg tablet 50 mg PO DAILY 06/22/24 06/23/24 History prednisone 1 mg tablet 4 mg PO DAILY 06/22/24 06/23/24 History rivaroxaban 10 mg tablet (Xarelto) 10 mg PO DAILY 06/22/24 06/22/24 History simvastatin 20 mg tablet 20 mg PO HS 06/22/24 06/23/24 History sulfamethoxazole 800 1 tab PO BID 06/22/24 06/22/24 History mg-trimethoprim 160 mg tablet upadacitinib 15 mg tablet,extended 15 mg PO DAILY 06/22/24 06/22/24 History release 24 hr (Rinvoq) gabapentin 300 mg capsule 900 mg PO HS 06/23/24 06/23/24 History valacyclovir 500 mg tablet 500 mg PO DAILY 06/23/24 06/23/24 History Allergies Allergy/AdvReac Type Severity Reaction Status Date / Time No Known Drug Allergies Allergy Verified 06/22/24 23:16 Exam Narrative Exam Narrative: Physical Exam GENERAL: ?vital signs reviewed, Pt is now oriented to time and place and date. HEENT: pupils are equal round and reactive to light, extraocular movements are grossly within normal limits and oral mucosa is moist. HEART: Regular rate and rhythm without any rubs, murmurs, or gallops. LUNGS: Clear to auscultation bilaterally with good air movement throughout ABDOMEN: + mild tenderness, + bs in 4 quad EXTREMITIES: Strength and sensation is observed to be grossly within normal limits in the upper and lower extremities.? No focal strength deficit is observed. SKIN:? Observed warm and dry with color normal Const Vital Signs, click to edit/add: Vital Signs - 24 hr 06/22/24 23:10 06/23/24 00:45 06/23/24 02:13 Temperature 100.4 F H 99.1 F Pulse Rate 65 67 Pulse Rate [Pulse Oximeter] 75 Respiratory Rate 16 16 16 Blood Pressure 145/57 H 135/60 Blood Pressure [Left Arm] Blood Pressure [Right Upper Arm] 181/73 H Pulse Oximetry 96 95 95 Oxygen Delivery Method Room Air Room Air 06/23/24 04:14 06/23/24 05:14 06/23/24 05:14 Temperature 99 F 100.3 F H Pulse Rate Pulse Rate [Pulse Oximeter] 72 77 Respiratory Rate 16 20 Blood Pressure Blood Pressure [Left Arm] 149/57 H Blood Pressure [Right Upper Arm] 146/60 H Pulse Oximetry 93 98 98 Oxygen Delivery Method Room Air Room Air Room Air 06/23/24 08:19 Temperature 101.3 F H Pulse Rate Pulse Rate [Pulse Oximeter] 78 Respiratory Rate 18 Blood Pressure Blood Pressure [Left Arm] 152/62 H Blood Pressure [Right Upper Arm] Pulse Oximetry 92 Oxygen Delivery Method Room Air Hospitalist - H&P: Result Labs Labs: Short CBC 06/22/24 Range/Units 23:31 WBC 10.77 (4.50-11.00) K/uL Hgb 11.4 L (12.0-16.0) gm/dL Hct 34.6 (33.0-51.0) % Plt Count 229 (140-440) K/uL BMP 06/22/24 23:31 Sodium 133 L Potassium 4.4 Chloride 103 Carbon Dioxide 22 BUN 22 Creatinine 1.3 Glucose 147 H Calcium 9.3 Liver Function 06/22/24 Range/Units 23:31 Total Bilirubin 0.9 (0.1-1.5) mg/dL AST 24 (12-35) U/L ALT 17 (4-35) U/L Alkaline Phosphatase 40 (40-150) U/L Albumin 4.6 (3.3-5.0) g/dL Urine 06/23/24 Range/Units 01:30 Urine Color Yellow (Yellow) Urine Appearance Clear (Clear) Urine pH 5.5 (5.0-8.5) Ur Specific [place] >= 1.030 (1.000-1.030) Urine Protein Trace A (Negative) Urine Glucose (UA) Negative (Negative) Assessment and Plan Assessment and plan (1) Weakness: Status: Acute (2) COVID: Status: Acute Plan - pt is presenting to ED with c/o abdominal discomfort, fever, chills, confusion likely all related to covid 19 infection - given risk factors for Covid 19 infection, will treat pt with 3 days of remdesivir. NOt hypoxic. will hold steroids. - cont [id number] and f/u urine cultures. Chronic Problems # h/o DVT: cont xarelto # HTN: resume some home bp meds. review bp in am Telehealth: Statement Statement Telehealth Visit: Today's History and Physical is provided via interactive telehealth by Joleen Liang MD.? Patient is located at [facility].? Provider is located at [facility].? Nursing staff assisted with the patient's exam. The visit being done today meets criteria for a telehealth visit and the patient or patient?s parent/guardian is aware the visit is a telehealth visit.
[2024-06-23] MEDS: atenoloL 25 MG TABLET PO (09:28)
[2024-06-23] MEDS: SODIUM CHLORIDE 0.9 % (FLUSH) 10 ML SYRINGE 5 ML IVF ×2 (09:29→20:34)
[2024-06-23] MEDS: cefTRIAXone 2 GM in 0.9 % SODIUM CHLORIDE Mini-bag 100 ML IVPB (11:11)
[2024-06-23] MEDS: GABAPENTIN 300 MG CAPSULE 600 MG PO (11:48)
--- NOTE | 2024-06-23 15:39 | PC.NURSE ---
End of Shift: Patient pleasant and cooperative, A&O. VSS, T-max 101.3, PRN medication given, see MAR. SpO2 maintained above 90% on RA. Patient worked with PT and OT this shift. SBA. Tolerating regular diet.
[2024-06-23] MEDS: DULOXETINE 30 MG CAPSULE DR 60 MG PO (18:15)
[2024-06-23] MEDS: RIVAROXABAN 10 MG TABLET PO (18:15)
[2024-06-23] MEDS: GABAPENTIN 300 MG CAPSULE 900 MG PO (20:33)
[2024-06-23] MEDS: SIMVASTATIN 20 MG TABLET PO (20:33)
--- NOTE | 2024-06-23 23:29 | PC.NURSE ---
End of Shift: Patient pleasant and cooperative, AxOx4. PRN medication given per Pt reporting headache, see MAR. CMS intact. VSS on RA. SBA. Tolerating regular diet. Continent of bladder and bowel. Pt appears resting with call light in reach.
[2024-06-24] VITALS (15 sets, daily range): BP systolic 133–179; BP diastolic 56–87; PULSE 61–72; RESP 16–18; TEMP 36.6–37.4; O2SAT 85–97
[2024-06-24] MEDS: ACETAMINOPHEN 325 MG TABLET 650 MG PO ×2 (01:28→15:51)
[2024-06-24 07:15] LABS: Basophils Percent Auto 0.3 % (0.0-3.0); Lymphocytes Percent Auto 9.3 % (20-44); Mean Corpuscular HGB Conc 32 gm/dL (32-36); Mean Corpuscular Hemoglobin 34 pg (26-34); Mean Corpuscular Volume 104 fL (80-100); Neutrophils Percent Auto 78.4 % (42.0-72.0); Platelet Count* 181 K/uL (140-440); RDW Coefficient of Variation % 13.6 % (11.5-15.5); Red Blood Count 2.98 m/uL (4.00-5.20); White Blood Count* 3.99 K/uL (4.50-11.00)
[2024-06-24 07:35] LABS: Slide Review Reflex No
--- NOTE | 2024-06-24 07:36 | PC.NURSE ---
End of shift note [id number]: Pt alert & oriented to person and place though confused to time. She is transferring with assist of 1 using FWW and gait belt. PRN Tylenol given for lower back and R hip pain. Pt continent of bladder. Tele with NSR noted. Temp 99.3 with 2300 and 0300 VS check. O2 administered via NC at 1-2 LPM due to O2 sat of 85% when on RA and 88% on 1 LPM. Pt was noted to have removed nasal cannula from nose several times throughout the shift and therefore required this RN to replace nasal cannula into nose several times throughout the shift. SCDs worn to BLEs. Bed alarm on and call light within reach.?
[2024-06-24 07:37] LABS: Chloride* 105 mmol/L (96-114); Sodium* 133 mmol/L (135-149)
[2024-06-24 07:38] LABS: Potassium* 3.8 mmol/L (3.6-5.1)
[2024-06-24 07:40] LABS: Estimated Glomerular Filt Rate 56 ml/min
[2024-06-24 07:41] LABS: Anion Gap 9 mEq/L (7-15); Blood Urea Nitrogen* 22 mg/dL (7-30); Calcium* 8.7 mg/dL (8.4-10.6); Carbon Dioxide* 19 mmol/L (20-32); Glucose* 97 mg/dL (60-115)
[2024-06-24] MEDS: GABAPENTIN 300 MG CAPSULE 600 MG PO ×2 (08:06→11:54)
[2024-06-24] MEDS: predniSONE 1 MG TABLET 4 MG PO (08:06)
[2024-06-24] MEDS: SODIUM CHLORIDE 0.9 % (FLUSH) 10 ML SYRINGE 5 ML IVF ×2 (09:04→21:13)
[2024-06-24] MEDS: CIPROFLOXACIN 250 MG TABLET PO ×2 (09:04→21:13)
[2024-06-24] MEDS: atenoloL 25 MG TABLET PO (09:04)
--- NOTE | 2024-06-24 15:32 | P.IMPN_ITS ---
Progress Note: A&P Assessment and plan (1) Acute metabolic encephalopathy: Problem details: Likely due to COVID infection. May have hypoactive delirium. Baseline mental status is unknown. Status: Acute (2) Weakness: Problem details: Due to COVID Status: Acute (3) COVID: Problem details: Active COVID infection with metabolic encephalopathy. Did receive supplemental oxygen briefly last night but not currently requiring oxygen Status: Acute (4) Urinary tract infection: Problem details: Diagnosed with symptomatic UTI 10 days ago. Culture grew enterobacter cloacae complex resistant to cephalosporins but susceptible to Cipro. Treated with Bactrim outpatient. Uncertain if she is currently having symptoms due to altered mental status. Now on Cipro. Status: Acute (5) Abnormal head CT: Problem details: Abnormality and right frontal white matter. Clinically uncertain. [place] neurologist thinks it might be an old stroke. Non emergent MRI pending Status: Acute Plan Continue in hospital for ongoing evaluation and management in the context of metabolic encephalopathy from COVID infection. Still not functioning well enough to be living independently. Total time spent today is 35 minutes in review of records and evaluation and management Subjective Date Seen: 06/24/24 Interval history: Alexandria Bradshaw is a 84 year old femal with PMHx significant for HTN, DVT on xarelto, RA on renvoq and prednisone, colon ca in remission presented to ED with confusion and weakness. Pt was initially confused in ER however she was awake and able to provide detailed history at the time of interview. Pt reports she had an episode of at the granddaughter's house. She says grand daughter house entrance had high stairs and she had nothing to hold onto and fell and got bruised however she carried on with no significant injury and did not get evaluated for that. Today patient was more confused and was brought in by the for concerns of change of mental status. She complains of mild urinary symptoms. she also complains of lower abdominal discomfort, does complain of some nausea, she has a mild cough. She has been afebrile in the emergency department. She does report few loose stool episodes yesterday. In the emergency department she tested positive for COVID. White count was 10.7. Hemoglobin 11.4 and platelets 229, UA showed 1+ leukocyte with bacteria's. Patient was having symptoms of dysuria around [place] and started on antibiotic. Urine culture grew Enterobacter cloaca complex which was resistant to ampicillin and cephalosporins but susceptible to ciprofloxacin. She was treated with Bactrim DS prior to admission. Now on ciprofloxacin. 06/24/2024. Patient is sleeping. She is hard to arouse. When I do wake her up she seems confused. She falls asleep fairly quickly. She cooperates with physical examination but then falls asleep again. Gives minimal information response to questions. Nursing notes indicate she was requiring the assist of 1 and using a front wheel walker. Supplemental oxygen per nasal cannula prep overnight. On room air this morning. Exam Narrative: Exam Narrative: Sleepy but arouses to voice. Not oriented to day but no she is in the hospital. Unable to give much detail about recent events or current symptoms. Head is without trauma. Eyes normal. Oropharynx normal. Respirations are clear to auscultation. Breathing is unlabored. Cardiovascular: S1, S2, regular rate and rhythm. Abdomen is soft without tenderness or mass. Extremities without edema. She moves all 4 extremities well. Const: Vital Signs, click to edit/add: Vital Signs - 24 hr 06/23/24 19:00 06/23/24 22:58 06/23/24 23:00 Temperature 98.7 F Pulse Rate 71 Pulse Rate [Pulse Oximeter] 62 72 Respiratory Rate 16 16 Blood Pressure [Le ft Arm] 161/60 H Blood Pressure [Ri ght Arm] Pulse Oximetry 97 Oxygen Delivery Me thod Room Air Oxygen Flow Rate 06/24/24 00:22 06/24/24 00:50 06/24/24 00:52 Temperature 99.3 F Pulse Rate Pulse Rate [Pulse Oximeter] 72 Respiratory Rate 16 Blood Pressure [Le ft Arm] Blood Pressure [Ri ght Arm] 159/68 H Pulse Oximetry 93 85 L 90 Oxygen Delivery Me thod Room Air Room Air Nasal Cannula Oxygen Flow Rate 1 06/24/24 02:05 06/24/24 02:08 06/24/24 03:16 Temperature 99.3 F Pulse Rate Pulse Rate [Pulse Oximeter] 69 Respiratory Rate 16 Blood Pressure [Le ft Arm] Blood Pressure [Ri ght Arm] 150/62 H Pulse Oximetry 88 92 93 Oxygen Delivery Me thod Nasal Cannula Nasal Cannula Nasal Cannula Oxygen Flow Rate 1 2 1 06/24/24 08:00 06/24/24 08:18 01/04/25 09:00 Temperature 98.1 F Pulse Rate Pulse Rate [Pulse Oximeter] 71 67 Respiratory Rate 18 18 18 Blood Pressure [Le ft Arm] Blood Pressure [Ri ght Arm] 179/75 H Pulse Oximetry 93 93 Oxygen Delivery Me thod Nasal Cannula Nasal Cannula Oxygen Flow Rate 1 1 06/24/24 11:52 06/24/24 12:09 06/24/24 12:13 Temperature 98.8 F Pulse Rate 62 Pulse Rate [Pulse Oximeter] 67 Respiratory Rate 16 Blood Pressure [Le ft Arm] Blood Pressure [Ri ght Arm] 159/79 H Pulse Oximetry 92 92 Oxygen Delivery Me thod Room Air Oxygen Flow Rate Documenting provider has reviewed patient's vital signs: yes Labs Labs: Laboratory Results - last 24 hr 06/24/24 06:37 WBC 3.99 L RBC 2.98 L Hgb 10.0 L Hct 31.0 L MCV 104 H MCH 34 MCHC 32 RDW Coeff of [place] 13.6 Plt Count 181 Neut % (Auto) 78.4 H Lymph % (Auto) 9.3 L [place] % (Auto) 12.0 H Eos % (Auto) 0.0 Baso % (Auto) 0.3 Neut # (Auto) 3.10 Lymph # (Auto) 0.40 L [place] # (Auto) 0.50 Eos # (Auto) 0.00 Baso # (Auto) 0.00 Abs Immat Gran (auto) 0.00 Imm/Tot Granulo (auto) 0.0 Sodium 133 L Potassium 3.8 Chloride 105 Carbon Dioxide 19 L Anion Gap 9 BUN 22 Creatinine 1.0 Estimated Creat Clear 34.30 Estimated GFR 56 Glucose [address] scan - head: Radiologist's impression: Indication: Fall Technique: Noncontrast CT through the head with multiplanar reformats Comparison: None Findings: Mild motion degradation. Brain: No acute hemorrhage. No acute infarct. No significant mass effect or midline shift. No gross evidence of a mass lesion or cerebral edema. Severe chronic microvascular ischemic disease. Mild global parenchymal volume loss. Focal white matter disease in the right frontal lobe immediately abutting but not involving the overlying cortex. Ventricles: No acute abnormality appreciated. Orbits, sinuses, mastoids: No acute abnormality appreciated. Calvarium and soft tissues: No acute abnormality appreciated. Impression: 1. Mild motion degradation. No acute abnormality appreciated. 2. On a background of severe chronic white matter disease, there is a more focal region of hypodensity in the right frontal white matter which abuts but does not appear to involve the overlying cortex. This is indeterminate, and no prior examinations available for comparison. Consider contrast-enhanced MRI for further characterization.
--- NOTE | 2024-06-24 15:36 | PC.NURSE ---
End of Shift: Patient pleasant and cooperative, A&O to self and place this shift. Patient was hypertensive this morning, otherwise all other VSS. Tolerating regular diet. Denies pain. A1 with walker.
[2024-06-24] MEDS: DULOXETINE 30 MG CAPSULE DR 60 MG PO (17:35)
[2024-06-24] MEDS: RIVAROXABAN 10 MG TABLET PO (17:36)
[2024-06-24] MEDS: SIMVASTATIN 20 MG TABLET PO (21:12)
[2024-06-24] MEDS: GABAPENTIN 300 MG CAPSULE 900 MG PO (21:13)
--- NOTE | 2024-06-24 22:13 | PC.NURSE ---
End of Shift: Patient pleasant and cooperative, AxOx4. Consulting Database Administrator put Pt on 1 L of 02 during napping: sats would sit at 87 on RA. Pt tolerating RA well when awake. VSS. Tolerating regular diet. Back pain relieved with aquaK pad and reposition. Pt stated headache at the beginning of shift, conventional underwriter assessed CMS - intact. Consulting Database Administrator utilized PRN medication and dimming lights. Relief noted. A1 with walker. Pt appears resting with call light in reach.
[2024-06-25 02:59] VITALS: BP 160/64; PULSE 64; RESP 18; TEMP 36.7; O2SAT 94
[2024-06-25] MEDS: ACETAMINOPHEN 325 MG TABLET 650 MG PO ×2 (03:12→16:00)
--- NOTE | 2024-06-25 05:53 | PC.NURSE ---
Shift note: Pt alert and oriented and doing well with A1, walker and GB. No confusion or fever recorded. O2> 90% in RA.
[2024-06-25 07:00] VITALS: BP 155/62; PULSE 62; RESP 18; TEMP 36.6; O2SAT 96
[2024-06-25] MEDS: GABAPENTIN 300 MG CAPSULE 600 MG PO ×3 (09:25→20:46)
[2024-06-25] MEDS: hydroCHLOROthiazide 12.5 MG CAPSULE PO (09:25)
[2024-06-25] MEDS: lisinopriL 10 MG TABLET PO (09:25)
[2024-06-25] MEDS: atenoloL 25 MG TABLET PO (09:25)
[2024-06-25] MEDS: VALACYCLOVIR HCL 500 MG TABLET PO (09:25)
[2024-06-25] MEDS: predniSONE 1 MG TABLET 4 MG PO (09:25)
[2024-06-25] MEDS: CIPROFLOXACIN 250 MG TABLET PO ×2 (09:26→20:46)
[2024-06-25] MEDS: SODIUM CHLORIDE 0.9 % (FLUSH) 10 ML SYRINGE 5 ML IVF ×2 (09:26→20:46)
[2024-06-25 12:00] VITALS: O2SAT 98
[2024-06-25 15:00] VITALS: BP 155/78; PULSE 70; PULSE 75; RESP 16; TEMP 36.6; O2SAT 97
--- NOTE | 2024-06-25 15:59 | PM.IMPN1 ---
Progress Note: A&P Assessment and plan (1) Acute metabolic encephalopathy: Problem details: Likely due to COVID infection. May have hypoactive delirium. Now much improved. Status: Acute (2) Weakness: Problem details: Due to COVID. Now much improved. Probably will need a walker at home at least temporarily Status: Acute (3) COVID: Problem details: Active COVID infection with metabolic encephalopathy. Did receive supplemental oxygen briefly last night but not currently requiring oxygen Status: Acute (4) Urinary tract infection: Problem details: Diagnosed with symptomatic UTI 10 days ago. Culture grew enterobacter cloacae complex resistant to cephalosporins but susceptible to Cipro. Treated with Bactrim outpatient. Uncertain if she is currently having symptoms due to altered mental status. Now on Cipro. Based on the history from the family it sounds like she has had about 2-3 days of Bactrim therapy and now 1 and half days of Cipro. No longer having symptoms. Status: Acute (5) Abnormal head CT: Problem details: Abnormality and right frontal white matter. Clinically uncertain. [place] neurologist thinks it might be an old stroke. Non emergent MRI pending Status: Acute (6) Cough with hemoptysis: Problem details: Patient had hemoptysis with a cough this morning. She is on anticoagulation with rivaroxaban and does have COVID infection. If continued problems may need further evaluation and management. Expect this to resolve spontaneously as COVID improves Status: Acute Plan Continue in-hospital for 1 more day of evaluation management of COVID encephalopathy, weakness, hemoptysis. Probable discharge to home tomorrow if doing well. Total time spent today is 50 minutes in discussing with patient and the physiology of her encephalopathy ongoing evaluation and management of COVID infection. Subjective Date Seen: 06/25/24 Interval history: Alexandria Bradshaw is a 84 year old femal with PMHx significant for HTN, DVT on xarelto, RA on renvoq and prednisone, colon ca in remission presented to ED with confusion and weakness. Pt was initially confused in ER however she was awake and able to provide detailed history at the time of interview. Pt reports she had an episode of at the granddaughter's house. She says grand daughter house entrance had high stairs and she had nothing to hold onto and fell and got bruised however she carried on with no significant injury and did not get evaluated for that. Today patient was more confused and was brought in by the for concerns of change of mental status. She complains of mild urinary symptoms. she also complains of lower abdominal discomfort, does complain of some nausea, she has a mild cough. She has been afebrile in the emergency department. She does report few loose stool episodes yesterday. In the emergency department she tested positive for COVID. White count was 10.7. Hemoglobin 11.4 and platelets 229, UA showed 1+ leukocyte with bacteria's. Patient was having symptoms of dysuria around [place] and started on antibiotic. Urine culture grew Enterobacter cloaca complex which was resistant to ampicillin and cephalosporins but susceptible to ciprofloxacin. She was treated with Bactrim DS prior to admission. Now on ciprofloxacin. 06/24/2024. Patient is sleeping. She is hard to arouse. When I do wake her up she seems confused. She falls asleep fairly quickly. She cooperates with physical examination but then falls asleep again. Gives minimal information response to questions. Nursing notes indicate she was requiring the assist of 1 and using a front wheel walker. Supplemental oxygen per nasal cannula prep overnight. On room air this morning. 06/25/2024: Patient appears much better today. She is seen with her . He reports she appears to be getting close to normal. She is alert and talkative. She does not remember much details of the last couple days. She reports being a little unsteady on her feet but is able to walk with a walker. Her appetite is poor but she has been able to eat. She has a cough and had some blood in her sputum today. She is on anticoagulation. Exam Narrative: Exam Narrative: She is alert and appears in no distress. Orientation is much improved she is able to carry on a conversation and is alert and entirely appropriate . Respirations are clear to auscultation. Cardiovascular: S1, S2, regular rate and rhythm. Abdomen is soft without tenderness or mass. Const: Vital Signs, click to edit/add: Vital Signs - 24 hr 06/24/24 18:21 06/24/24 23:00 06/24/24 23:00 Temperature 98 F Pulse Rate Pulse Rate [Pulse Oximeter] 61 Respiratory Rate 18 18 18 Blood Pressure [Le ft Arm] 134/87 Blood Pressure [Ri ght Arm] Pulse Oximetry 96 92 Oxygen Delivery Me thod Room Air Nasal Cannula Oxygen Flow Rate 1 06/24/24 23:00 06/24/24 23:00 06/25/24 02:59 Temperature 98.1 F 98.1 F Pulse Rate 67 Pulse Rate [Pulse Oximeter] 63 64 Respiratory Rate 18 18 Blood Pressure [Le ft Arm] 152/72 H 160/64 H Blood Pressure [Ri ght Arm] Pulse Oximetry 92 94 Oxygen Delivery Me thod Nasal Cannula Nasal Cannula Oxygen Flow Rate 1 1 06/25/24 07:00 06/25/24 07:00 06/25/24 12:00 Temperature 97.8 F Pulse Rate Pulse Rate [Pulse Oximeter] 62 Respiratory Rate 18 18 Blood Pressure [Le ft Arm] Blood Pressure [Ri ght Arm] 155/62 H Pulse Oximetry 96 96 98 Oxygen Delivery Me thod Room Air Room Air Oxygen Flow Rate Documenting provider has reviewed patient's vital signs: yes
[2024-06-25] MEDS: DULOXETINE 30 MG CAPSULE DR 60 MG PO (18:47)
[2024-06-25] MEDS: RIVAROXABAN 10 MG TABLET PO (18:48)
--- NOTE | 2024-06-25 19:41 | PC.NURSE ---
The patient is alert and oriented, although some encephalopathy is noted. VSS on RA, no reports of pain. Reports feeling generally weak. Productive cough with blood and mucus this AM was reported to Dr Quinones. Call light within reach. Lizzie MORENO BSN
[2024-06-25 20:42] VITALS: BP 129/62; PULSE 68; RESP 16; TEMP 36.7; O2SAT 95
[2024-06-25] MEDS: SIMVASTATIN 20 MG TABLET PO (20:46)
[2024-06-25 23:00] VITALS: BP 140/64; PULSE 64; PULSE 66; RESP 16; TEMP 36.7; O2SAT 93; O2SAT 95
[2024-06-26 02:28] VITALS: BP 144/78; PULSE 78; RESP 16; TEMP 36.4; O2SAT 97
[2024-06-26 02:43] VITALS: BP 134/79; PULSE 78; RESP 16; TEMP 36.8; O2SAT 97
--- NOTE | 2024-06-26 05:23 | PC.NURSE ---
Shift note: Pt continue to improve. A1, walker and GB. No fever or SOB recorded. Intermittent cough noted. Pt has been on RA throughout the night with O2>90.
[2024-06-26 07:00] VITALS: BP 164/58; PULSE 65; PULSE 75; PULSE 82; RESP 16; RESP 18; TEMP 36.7; O2SAT 90; O2SAT 97
[2024-06-26] MEDS: hydroCHLOROthiazide 12.5 MG CAPSULE PO (09:10)
[2024-06-26] MEDS: CIPROFLOXACIN 250 MG TABLET PO (09:10)
[2024-06-26] MEDS: lisinopriL 10 MG TABLET PO (09:10)
[2024-06-26] MEDS: predniSONE 1 MG TABLET 4 MG PO (09:10)
[2024-06-26] MEDS: atenoloL 25 MG TABLET PO (09:11)
[2024-06-26] MEDS: GABAPENTIN 300 MG CAPSULE 600 MG PO (09:11)
[2024-06-26] MEDS: VALACYCLOVIR HCL 500 MG TABLET PO (09:11)
[2024-06-26] MEDS: SODIUM CHLORIDE 0.9 % (FLUSH) 10 ML SYRINGE 5 ML IVF (09:11)
--- NOTE | 2024-06-26 12:53 | PC.NURSE ---
Patient A/O, ambulates to BR with walker SBA. VSS. Afebrile and VSS. Discharged today at 1213 accompanied by spouse to home. Patients IV removed intact. Discharge instructions given and signed. Belongings sheet reviewed and signed. Patient had questions about medications. [employer] went over medication list and stated to call if she had any other questions. Patient tolerated a reg. diet. Denied pain N/V or SOB.
--- NOTE | 2024-06-26 13:56 | PM.DS1 ---
DS: Providers Provider Date Seen: 06/26/24 Date of admission: 06/23/24 04:38 Primary care physician: Not a Local Provider Admitting Clinician: Joleen Liang MD Date of Discharge: 06/26/24 DS: Diagnosis Discharge Diagnosis (1) Acute metabolic encephalopathy: Status: Acute Problem details: Likely due to COVID infection. May have hypoactive delirium. Now back to baseline. (2) Weakness: Status: Acute Problem details: Due to COVID. Now much improved. Probably will need a walker at home. Outpatient PT (3) COVID: Status: Acute Problem details: Active COVID infection with metabolic encephalopathy. Did receive supplemental oxygen briefly but not currently requiring oxygen. (4) Urinary tract infection: Status: Acute Problem details: Diagnosed with symptomatic UTI 10 days ago. Culture grew enterobacter cloacae complex resistant to cephalosporins but susceptible to Cipro. Treated with Bactrim outpatient. Uncertain if she is currently having symptoms due to altered mental status. Now on Cipro. Based on the history from the family it sounds like she has had about 2-3 days of Bactrim therapy and now 1 and half days of Cipro. No longer having symptoms. Complete a 7 day course of antibiotics with 2 more days of Cipro. (5) Abnormal head CT: Status: Acute Problem details: Abnormality and right frontal white matter. Clinically uncertain. [place] neurologist thinks it might be an old stroke. Obtain MRI of the brain as an outpatient once she has recovered from COVID illness. (6) Cough with hemoptysis: Status: Acute Problem details: Patient had hemoptysis with a cough this morning. She is on anticoagulation with rivaroxaban and does have COVID infection. If continued problems may need further evaluation and management. Expect this to resolve spontaneously as COVID improves. If persistent hemoptysis after [address] to further evaluate DS: Summary Hospital Course Hospital Course: Alexandria Bradshaw is a 84 year old female with PMHx significant for HTN, DVT on xarelto, RA on renvoq and prednisone, colon ca in remission presented to ED with confusion and weakness. Pt was initially confused in ER however she was awake and able to provide detailed history at the time of interview. Pt reports she had an episode of at the granddaughter's house. She says grand daughter house entrance had high stairs and she had nothing to hold onto and fell and got bruised however she carried on with no significant injury and did not get evaluated for that. Today patient was more confused and was brought in by the for concerns of change of mental status. She complains of mild urinary symptoms. she also complains of lower abdominal discomfort, does complain of some nausea, she has a mild cough. She has been afebrile in the emergency department. She does report few loose stool episodes yesterday. In the emergency department she tested positive for COVID. White count was 10.7. Hemoglobin 11.4 and platelets 229, UA showed 1+ leukocyte with bacteria's. Patient was having symptoms of dysuria around [place] and started on antibiotic. Urine culture grew Enterobacter cloaca complex which was resistant to ampicillin and cephalosporins but susceptible to ciprofloxacin. She was treated with Bactrim DS prior to admission. Now on ciprofloxacin. She did receive oxygen overnight a couple nights. She has not been hypoxic during the day. She is suspected of possibly having sleep apnea as a cause of her mild overnight hypoxia. For the 1st day the patient was encephalopathic and hard to arouse and disoriented. Over the subsequent 2 days she has returned to baseline mental status and level of consciousness. Her initial profound weakness and inability to ambulate and has resolved and she is now walking with a walker as was previously recommended. On admission she had CT of the head which raise the possibility of a frontal lobe lesion. Neurology thought this is probably an old stroke. Recommended outpatient MRI. She had some hemoptysis without significant respiratory symptoms. This was thought to be a combination of her COVID illness with coughing and her anticoagulation. This was improving. If still persisting next week consider chest CT. Status at Discharge Functional status at discharge: uses cane/walker Overall status at discharge: patient is progressing back to baseline Time Spent with Patient Time attestation: Total time spent providing and/or coordinating discharge services: 35 minutes Exam Narrative: Exam Narrative: She is alert and oriented to her circumstances. Breathing is unlabored. Minimal coughing. Ambulating with a walker well. Const: Vital Signs, click to edit/add: Vital Signs - 24 hr 06/25/24 15:00 06/25/24 15:00 06/25/24 15:00 Temperature 97.8 F Pulse Rate 75 Pulse Rate [Pulse Oximeter] 70 Respiratory Rate 16 16 Blood Pressure [Le ft Arm] Blood Pressure [Ri ght Arm] 155/78 H Pulse Oximetry 97 97 Oxygen Delivery Me thod Room Air Room Air Oxygen Flow Rate 06/25/24 20:42 06/25/24 23:00 06/25/24 23:00 Temperature 98.1 F Pulse Rate Pulse Rate [Pulse Oximeter] 68 64 Respiratory Rate 16 16 16 Blood Pressure [Le ft Arm] 129/62 Blood Pressure [Ri ght Arm] Pulse Oximetry 95 95 Oxygen Delivery Me thod Room Air Room Air Oxygen Flow Rate 1 06/25/24 23:00 06/25/24 23:00 06/26/24 02:28 Temperature 98.1 F 97.6 F Pulse Rate 66 Pulse Rate [Pulse Oximeter] 64 78 Respiratory Rate 16 16 Blood Pressure [Le ft Arm] 140/64 H 144/78 H Blood Pressure [Ri ght Arm] Pulse Oximetry 93 97 Oxygen Delivery Me thod Room Air Room Air Oxygen Flow Rate 06/26/24 02:43 06/26/24 07:00 06/26/24 07:00 Temperature 98.2 F Pulse Rate Pulse Rate [Pulse Oximeter] 78 75 Respiratory Rate 16 18 18 Blood Pressure [Le ft Arm] Blood Pressure [Ri ght Arm] 134/79 Pulse Oximetry 97 90 Oxygen Delivery Me thod Room Air High Flow Nasal Ca nnula Oxygen Flow Rate 06/26/24 07:00 06/26/24 07:00 Temperature 98.0 F Pulse Rate 65 Pulse Rate [Pulse Oximeter] 82 Respiratory Rate 16 Blood Pressure [Le ft Arm] 164/58 H Blood Pressure [Ri ght Arm] Pulse Oximetry 97 Oxygen Delivery Me thod Room Air Oxygen Flow Rate Documenting provider has reviewed patient's vital signs: yes DS: Data Imaging CT scan - head: Radiologist's impression: Indication: Fall Technique: Noncontrast CT through the head with multiplanar reformats Comparison: None Findings: Mild motion degradation. Brain: No acute hemorrhage. No acute infarct. No significant mass effect or midline shift. No gross evidence of a mass lesion or cerebral edema. Severe chronic microvascular ischemic disease. Mild global parenchymal volume loss. Focal white matter disease in the right frontal lobe immediately abutting but not involving the overlying cortex. Ventricles: No acute abnormality appreciated. Orbits, sinuses, mastoids: No acute abnormality appreciated. Calvarium and soft tissues: No acute abnormality appreciated. Impression: 1. Mild motion degradation. No acute abnormality appreciated. 2. On a background of severe chronic white matter disease, there is a more focal region of hypodensity in the right frontal white matter which abuts but does not appear to involve the overlying cortex. This is indeterminate, and no prior examinations available for comparison. Consider contrast-enhanced MRI for further characterization. Chest x-ray: Radiologist's impression: INDICATION: Fever. TECHNIQUE: Chest 1 views. COMPARISON: None. FINDINGS: Cardiovascular and mediastinum: Cardiomediastinal silhouette is within normal limits. Lungs and pleural spaces: Lungs are clear. No sign of pleural effusion. No pneumothorax. Bones and soft tissues: No significant findings. IMPRESSION: No acute cardiopulmonary process identified. Discharge Plan Discharge Disposition: Home, Self-Care Date of Admission: 06/23/24 04:38 Attending Provider on Discharge: Raleigh Quinones Primary Care Provider: Provider,Not a Local Condition: Stable Anticipated Discharge Date/Time: 06/26/24 10:28 Discharge Medications: New ciprofloxacin HCl 250 mg Tablet 250 mg PO BID Qty: 4 0RF Continued naltrexone 50 mg tablet 50 mg PO DAILY atenolol 25 mg tablet 25 mg PO DAILY prednisone 1 mg tablet 4 mg PO DAILY simvastatin 20 mg tablet 20 mg PO HS gabapentin 300 mg capsule 600 mg PO 08,12 lisinopril-hydrochlorothiazide 10-12.5 mg tablet 1 tab PO DAILY duloxetine 60 mg capsule,delayed release(DR/EC) 60 mg PO QPM Xarelto 10 mg tablet 10 mg PO DAILY Rinvoq 15 mg tablet extended release 24 hr 15 mg PO DAILY gabapentin 300 mg capsule 900 mg PO HS valacyclovir 500 mg tablet 500 mg PO DAILY Discontinued sulfamethoxazole-trimethoprim 800-160 mg tablet 1 tab PO BID Discharge Orders: Discharge Order (Routine); Ordered 06/26/24 Ordered By: Raleigh Quinones Patient Education: Ciprofloxacin (By mouth), COVID-19 (Coronavirus Disease 2019) (DC), COVID-19: Slow the Coronavirus Spread (DC), How to Recover from COVID-19 at Home (GEN) Additional Instructions: Increase your physical activity as tolerated. You should feel better day by day. Activity Level: Activity as Tolerated Discharge Diet: Regular Follow Up Appointments: Mervat Garcia CNP [Nurse Practitioner] - 06/30/24 10:15 am (Follow-up/establish care appointment at the [facility]. ) Provider,Not a Local [Primary Care Provider] - Fartun Grady MD [Staff Physician] - () Forms: MyHealth Info Instructions
== END 2024-06-26 12:13 | disposition home or self-care (01) ==
LOC: ED 06-23 02:26 → MEDSURG 06-23 04:39
PROVIDERS: Family Medicine; Internal Medicine; Admitting Provider Internal Medicine; Emergency Provider Student in an Organized Health Care Education/Training Program; Visit Provider Internal Medicine
DX: U07.1 COVID-19 (principal); R53.1 Weakness; G93.41 Metabolic encephalopathy; N39.0 Urinary tract infection, site not specified; R93.0 Abnormal findings on diagnostic imaging of skull and head, not elsewhere classified; R04.2 Hemoptysis
CPT/HCPCS: 36415; 70450; 71045; 72125; 80048; 80053; 81001; 81003; 83605; 84145; 85025; 87040; 87086; 87631; 94761; 96361; 96365; 96366; 96368; 97110; 97116; 97161; 97165; 97530; 97535; 99284; 99285; G0378; A9270; J0696; J7030; J7050; J7512

== ENCOUNTER 2024-07-05 09:46 | Outpatient (CLI) | payer MEDICARE, SELFPAY | END 2024-07-05 09:47 | disposition home or self-care (01) | LOC: LKVREF 09:49 | PROVIDERS: PCP Nurse Practitioner Family; Visit Provider Nurse Practitioner Family | DX: N39.0 Urinary tract infection, site not specified (principal); I10 Essential (primary) hypertension | CPT/HCPCS: 80053; 87086 ==

== ENCOUNTER 2024-07-27 15:26 | Outpatient (CLI) | payer MEDICARE, SELFPAY ==
--- NOTE | 2024-07-27 15:30 | CRLHL7_ITS ---
For Patients: As a result of the Cures Act, medical imaging exams and procedure reports are released immediately into your electronic medical record. You may view this report before your referring provider. If you have questions, please contact your health care provider. INDICATION: Follow-up abnormal head CT findings. TECHNIQUE: Brain MRI with and without contrast. 20 cc Dotarem gadolinium based contrast administered. COMPARISON: Head CT from 06/22/2024. FINDINGS: No evidence of acute ischemia. No evidence of acute or chronic intracranial blood products. No mass or pathologic intracranial enhancement. A chronic transcortical infarct within the right middle frontal gyrus and subjacent white matter. Tiny chronic lacunar infarct within the left posterior putamen. Tiny chronic lacunar infarct within the right lateral thalamic capsule. Patchy FLAIR hyperintensities within the supratentorial white matter and brainstem, typical for chronic microvascular ischemic change. No hydrocephalus or extra-axial collections. Partially empty sella. Parasellar structures and optic chiasm are normal. Tiny chronic linear infarct within the right superior cerebellar hemisphere. All the major intracranial vascular structures demonstrate normal flow-related signal. The orbital contents are normal. No calvarial or skull base marrow signal abnormality. Right-sided TMJ arthrosis. No obstructive sinus disease. No extracranial soft tissue findings. IMPRESSION: 1. No acute infarction or other acute intracranial pathology. 2. No mass or pathologic intracranial enhancement. 3. 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 4. Small chronic lacunar infarcts bilateral basal ganglia. Small chronic linear infarct right superior cerebellar hemisphere. Moderate chronic microvascular ischemic changes. Dictated by Donell Schreiber MD @ 07/28/2024 1:51:02 PM (Electronically Signed)
== END 2024-07-27 15:27 | disposition home or self-care (01) ==
LOC: MRI 15:29
PROVIDERS: PCP Nurse Practitioner Family; Visit Provider Nurse Practitioner Family
DX: R93.0 Abnormal findings on diagnostic imaging of skull and head, not elsewhere classified (principal); Z86.73 Personal history of transient ischemic attack (TIA), and cerebral infarction without residual deficits
CPT/HCPCS: 70553; A9575

== ENCOUNTER 2024-07-28 12:35 | Observation (INO) | payer MEDICARE, SELFPAY ==
[2024-07-28] VITALS (8 sets, daily range): BP systolic 127–156; BP diastolic 63–96; PULSE 63–74; RESP 16–18; TEMP 36.7–37.3; O2SAT 92–99; BMI 35.8; BMI 37.0
--- OUTSIDE RECORDS SUMMARY | 2024-07-28 12:37 | XMS_ITS | Encounter Summary ---
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 Name Role Phone Esperanza Gatica MD Primary Care Provider + Esperanza Gatica MD Unavailable +[phone] Esperanza Gatica MD Unavailable +[phone] Esperanza Gatica MD Unavailable +[phone] Esperanza Gatica MD Unavailable +[phone] Esperanza Gatica MD Unavailable +[phone] Esperanza Gatica MD Unavailable [phone] Jesús Orourke MD Unavailable Alfreda RayC Primary Care Provider + Alfreda Ray PA-C Unavailable + [phone] Katrin Orellana PA-C Unavailable +[phone] Shanna VangC Unavailable +[phone] Fransisco Eddy MD Unavailable +[phone] Esperanza Gatica MD Unavailable +[phone] Esperanza Gatica MD Unavailable +[phone] Katrin Orellana PA-C Unavailable Cristina Hsieh [facility] Unavailable Ho Raymustapha Liu PA-C Unavailable +[phone] Alfreda Ray Alexa KING Unavailable +[phone] Cristina Hsieh [facility] Unavailable [phone] Dakota Tatum MD Unavailable [phone] Dakota Tatum MD Unavailable [phone] Srinivas Marie DO Unavailable [phone] Reason for Visit * Reason Onset Date Comments Refill Request 08/28/2013 tramadol Encounter Details Date Type Department Care Team (Late st Contact Info) Description 08/28/2013 MyC Refill [address], [address] [place] [address] [place] [address] [place] [address] Refill Request (tramadol) Social History Tobacco Use Types Packs/Day Years Used Date Smoking Tobacco: Former Cigarettes Q uit: 06/21/1973 Smokeless Tobacco: Former Alcohol Use Standard Drinks/Week Comments Yes 0 (1 standard drink = 0.6 oz pur e alcohol) rarely Comments No Sex and Gender Information Value Date Recorded Sex Assigned at Female 08/17/2018 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 Medication: tramadol Last OV: 07/14/13 Provider: MD ZAIDA Reason for visit: HTN, CKD, etc... Last refill: 07/31/13 #30 Please refill if appropriate. Thank you! Diane Macedo RN [facility] [employer] * Telephone Encounter - Diane Macedo RN - 08/28/2013 11:57 AM CDT Message from [facility]: Original authorizing provider: MD Sadia Brannonyovana Fregoso Cococecy would like a refill of the following medications: traMADol (ULTRAM) 50 MG tablet [Esperanza Gatica MD] Preferred pharmacy: [id number] Comment: Sent from my iPad documented in this encounter Plan of Treatment Upcoming Encounters Date Type Department Care Team (Late st Contact Info) Description 09/07/2024 10:00 AM CDT Office Visit [facility] [address] [phone] Fransisco Eddy MD [address] [place] [address] 88 [place] [address] 09/18/2024 2:00 PM CDT Virtual Visit [facility] [address] [place] [address] Shanna Vang PARobinson [address] [place] [address] 03/29/2025 3:40 PM CDT Office Visit [facility] [address] [place] [address] [phone] Alferda Ray PA-C [address] [place] [address] [phone] documented as of this encounter Visit Diagnoses Diagnosis Knee pain Pain in joint, lower leg documented in this encounter Additional Health Concerns Infection Onset Date Last Indicated Resolved Time Rule Out COVID-19 05/08/202105/08/2021 05/09/2021 9:08 PM BRINE TANK OPERATOR documented as of this encounter Care Teams Gum Rolling Machine Operator Relationship Specialty Start Date End Date Esperanza Gatica MD PCP - General Family Practice 10/13/11 12/29/21 [place] [address] LISBETH GARCIA [address] PCP - Assigned PCP 12/05/17 08/23/18 Alfreda Ray PA-C [address] [place] [address] PCP - General Family Medicine 12/30/21 [place] [address] L[place]B[address] GARCIA [address] Assigned PCP 12/05/17 09/30/19 [place] [address] LISBETH GARCIA 00014 Assigned PCP 10/01/19 03/02/20 [place] [address] [address] GARCIA [address]64[address] Assigned PCP 03/03/20 05/25/20 [place] [address] L[place] GARCIA 465[address] Assigned PCP 05/26/20 09/28/20 [place] [address] L[place]B[address] GARCIA 615[address] Assigned PCP 09/29/20 07/31/22 Jesú[place] [address] [address] [address] Assigned Musculoskeletal Provider 10/20/20 04/17/22 Alfreda Ray PA-C [address] [place] [address] 805092 Referring Physician Family Medicine 12/31/21 Katrin Orellana PA-C [address] [place] [address] Physician Gift Shop Manager Dermatology 12/31/21 Shanna Vang PA-C [facility] [address] 534424 Assigned Cancer Care Provider 01/10/22 Fransisco Eddy MD [address] [place] [address] Assigned Rheumatology Provider 05/09/22 [place] [address] [place] [address] Assigned Pain Medication Provider 06/29/22 09/04/22 [place] [address] [place] [address] Assigned PCP 08/15/22 08/28/22 Katrin Orellana PA-C [address] [facility] [address] [place] [address] Assigned Surgical Provider 08/15/22 02/10/24 Cristina Hsieh [facility] [address] [facility] LISBETH HERNANDEZ [address] Pharmacist Pharmacist 09/07/22 Alfreda Ray PA-C [address] [place] [address] Assigned Pain Medication Provider 09/05/22 09/10/23 Alfreda Ray PA-C [address] [place] [address] Assigned PCP 08/29/22 Cristina Hsieh [facility] [address] [address] Assigned MTM Pharmacist 09/26/22 Dakota Tatum MD [address] [place] [address] Cardiovascular Disease 03/25/23 Dakota Tatum MD [address] [place] [address] Assigned Heart and Vascular Provider 05/01/23 [place] [address] [address], [address] [address] Assigned Musculoskeletal Provider 04/12/24 documented as of this encounter
--- OUTSIDE RECORDS SUMMARY | 2024-07-28 12:37 | XMS_ITS | Encounter Summary ---
Author Organization [facility] Address [address] [place] [address] Care Team Providers Care Site Safety Representative Name Role Phone Esperanza Gatica MD Primary Care Provider + Esperanza Gatica MD Unavailable + Jesús Orourke MD Unavailable Alrfeda Ray-C Primary Care Provider + Alfreda RayC Unavailable +[phone] Katrin Orellana PA-C Unavailable +[phone] Shanna Vang PA-C Unavailable +[phone] Fransisco Eddy MD Unavailable [phone] Esperanza Gatica MD Unavailable + Esperanza Gatica MD Unavailable + Katrin OrellanaC Unavailable +[phone] Cristina Hsieh [facility] Unavailable [phone] Alfreda Ray PA-C Unavailable +[phone] Alfreda Ray PA-C Unavailable +[phone] Cristina Hsieh [facility] Unavailable [phone] Dakota Tatum MD Unavailable Dakota Tatum MD Unavailable Srinivas Marie DO Unavailable [phone] Encounter Details Date Type Department Care Team (Late Contact Info) Description 10/11/2020 Documentation Only [facility] [address] [place] [address] [place] [address] [place] [address] Social History Tobacco Use Types [...] Assigned at Female 08/17/2018 7:56 AM MANUFACTURING CHIEF ENGINEER Legal Sex Female 4:24 AM MANUFACTURING CHIEF ENGINEER Gender Identity Female 08/17/2018 7:56 AM MANUFACTURING CHIEF ENGINEER Sexual Orientation Straight 08/17/2018 7: 56 AM MANUFACTURING CHIEF ENGINEER COVID-19 Exposure Response Date Recorded In the last month, have you been in contact with someone who was confirmed or suspected to have Coronavirus / COVID-19? No / Unsure 10/07/2020 10:09 AM CDT documented as of this encounter Plan of Treatment Upcoming Encounters Date Type Department Care Team (Late Contact Info) Description 09/07/2024 10:00 AM CDT Office Visit [facility] [address] [facility] 200 [place] [address] Fransisco Eddy MD [address] [place] [address] 88 [place] [address] 09/18/2024 2:00 PM CDT Virtual Visit [facility] [address] [place] [address] Shanna Vang PA-C [address] [place] [address] 03/29/2025 3:40 PM CDT Office Visit [address] [address] Alfreda Ray PA-C [address] [place] [address] 070882 documented as of this encounter Visit Diagnoses Not on filedocumented in this encounter Additional Health Concerns Infection Onset Date Last Indicated Resolved Time Rule Out COVID-19 05/08/2021 05/08/2021 05/09/2021 9:08 PM MANUFACTURING CHIEF ENGINEER Assessment Noted Time PHQ-9 Depression Total Score: 0 08/31/19 21 11:22 AM MANUFACTURING CHIEF ENGINEER documented as of this encounter Care Teams Site Safety Representative Relationship Specialty Start Date End Date Esperanza Gatica MD PCP - General Family Practice 10/13/11 12/29/21 Alfreda Ray PA-C [address] [place] [address] PCP - General Family Medicine 12/30/21 [place] [address] [place] [address] Assigned PCP 09/29/20 07/31/22 Jesú[place] [address] [place] [address] Assigned Musculoskeletal Provider 10/20/20 04/17/22 Alfreda Ray PA-C [address] [place] [address] Referring Physician Family Medicine 12/31/21 Katrin Orellana PA-C [address] [place] [address] Physician Photograph Mounter Dermatology 12/31/21 Shanna Vang PA-C [address] [address] Assigned Cancer Care Provider 01/10/22 Fransisco Eddy MD [address] [place] [address] Assigned Rheumatology Provider 05/09/22 [place] [address] [place] [address] Assigned Pain Medication Provider 06/29/22 09/04/22 [place] [address] [place] [address] Assigned PCP 08/15/22 08/28/22 Katrin Orellana PA-C [address] [place] [address] Assigned Surgical Provider 08/15/22 02/10/24 Cristina Hsieh [facility] [address] [place] [address] LISBETH HERNANDEZ [address] Pharmacist Pharmacist 09/07/22 Alfreda Ray PA-C [address] [place] [address] Assigned Pain Medication Provider 09/05/22 09/10/23 Alfreda Ray PA-C [address] [place] [address]10 Assigned PCP 08/29/22 Cristina Hsieh, [facility] [address] [place] [address] Assigned MTM Pharmacist 09/26/22 Dakota Tatum MD [address] [place] [address] Cardiovascular Disease 03/25/23 Dakota Tatum MD [address] [place] [address] Assigned Heart and Vascular Provider 05/01/23 [place] [address] [address], [address] [address] Assigned Musculoskeletal Provider 04/12/24 documented as of this encounter
--- OUTSIDE RECORDS SUMMARY | 2024-07-28 12:38 | XMS_ITS | Encounter Summary ---
Author Organization [facility] Address [address] [place] [address] Care Team Providers Care Market Research Specialist Name Role Phone Esperanza Gatica MD Primary Care Provider + Esperanza Gatica MD Unavailable + Jesús Orourke MD Unavailable Alfreda Ray-C Primary Care Provider + Alfreda RayC Unavailable +[phone] Katrin Orellana PA-C Unavailable +[phone] Shanna Vang PA-C Unavailable [phone] Fransisco Eddy MD Unavailable +[phone] Esperanza Gatica MD Unavailable + Esperanza Gatica MD Unavailable + Katrin OrellanaC Unavailable +[phone] Cristina Hsieh [facility] Unavailable [phone] Alfreda Ray PA-C Unavailable +[phone] Alfreda Ray PA-C Unavailable +[phone] Cristina Hsieh [facility] Unavailable [phone] Dakota Tatum MD Unavailable Dakota Tatum MD Unavailable Srinivas Marie DO Unavailable [phone] Encounter Details Date Type Department Care Team (Late Contact Info) Description 10/22/2020 MyC Medical Advice [facility] [place] [address] [facility] [address] [place], [place] [phone] Jesú[place] [address] [place] [address] [place], [place] 9[address] Social History Tobacco Use Types Packs/Day Years [...] Sex Assigned at Female 08/17/2018 7:56 AM FREIGHT TEAM ASSOCIATE Legal Sex Female 4:24 AM FREIGHT TEAM ASSOCIATE Gender Identity Female 08/17/2018 7:56 AM FREIGHT TEAM ASSOCIATE Sexual Orientation Straight 08/17/2018 7: 56 AM FREIGHT TEAM ASSOCIATE COVID-19 Exposure Response Date Recorded In the last month, have you been in contact with someone who was confirmed or suspected to have Coronavirus / COVID-19? No / Unsure 10/16/2020 2:03 PM CDT documented as of this encounter Plan of Treatment Upcoming Encounters Date Type Department Care Team (Late Contact Info) Description 09/07/2024 10:00 AM CDT Office Visit [facility] [address] [place] [address] Fransisco Eddy MD [address] [place] [address] 88 [place] [address] 09/18/2024 2:00 PM CDT Virtual Visit [facility] [address] [place] [address] Shanna Vang PA-C [address] [place] [address] 03/29/2025 3:40 PM CDT Office Visit [address] [address] Alfreda Ray PA-C [address] [place] [address] 220842 documented as of this encounter Visit Diagnoses Not on filedocumented in this encounter Additional Health Concerns Infection Onset Date Last Indicated Resolved Time Rule Out COVID-19 05/08/2021 05/08/2021 05/09/2021 9:08 PM FREIGHT TEAM ASSOCIATE Assessment Noted Time PHQ-9 Depression Total Score: 0 08/31/19 21 11:22 AM FREIGHT TEAM ASSOCIATE documented as of this encounter Care Teams Market Research Specialist Relationship Specialty Start Date End Date Esperanza Gatica MD PCP - General Family Practice 10/13/11 12/29/21 Alfreda Ray PA-C [address] [place] [address] PCP - General Family Medicine 12/30/21 [place] [address] [place] [address] Assigned PCP 09/29/20 07/31/22 Jesú[place] [address] [place] [address] Assigned Musculoskeletal Provider 10/20/20 04/17/22 Alfreda Ray PA-C [address] [place] [address] Referring Physician Family Medicine 12/31/21 Katrin Orellana PA-C [address] [place] [address] Physician Garden Implement Mechanic Dermatology 12/31/21 Shanna Vang PA-C [address] [address] Assigned Cancer Care Provider 01/10/22 Fransisco Eddy MD [address] [place] [address] Assigned Rheumatology Provider 05/09/22 [place] [address] [place] [address] Assigned Pain Medication Provider 06/29/22 09/04/22 [place] [address] [place] [address] Assigned PCP 08/15/22 08/28/22 Katrin Orellana PA-C [address] [place] [address] Assigned Surgical Provider 08/15/22 02/10/24 Cristina Hsieh [facility] [address] [place] [address] LISBETH HERNANDEZ [address] Pharmacist Pharmacist 09/07/22 Alfreda Ray PA-C [address] [place] [address] Assigned Pain Medication Provider 09/05/22 09/10/23 Alfreda Ray PA-C [address] [place] [address] Assigned PCP 08/29/22 Cristina Hsieh, [facility] [address] [place] [address] Assigned MTM Pharmacist 09/26/22 Dakota Tatum MD [address] [place] [address] Cardiovascular Disease 03/25/23 Dakota Tatum MD [address] [place] [address] Assigned Heart and Vascular Provider 05/01/23 [place] [address] [address] GAST[address]UM, [address] [address] Assigned Musculoskeletal Provider 04/12/24 documented as of this encounter
--- OUTSIDE RECORDS SUMMARY | 2024-07-28 12:38 | XMS_ITS | Encounter Summary ---
Author Organization [facility] Address [address] [place] [address] Care Team Providers Care Apartment Groundskeeper Name Role Phone Esperanza Gatica MD Primary Care Provider + Esperanza Gatica MD Unavailable +[phone] Esperanza Gatica MD Unavailable +[phone] Esperanza Gatica MD Unavailable +[phone] Esperanza Gatica MD Unavailable +347 Esperanza Gatica MD Unavailable +522 Esperanza Gatica MD Unavailable [phone] Jesús Orourke MD Unavailable Alfreda RayC Primary Care Provider + Alfreda Ray PA-C Unavailable + [phone] Katrin Orellana PA-C Unavailable [phone] Shanna VangC Unavailable +[phone] Fransisco Eddy MD Unavailable [phone] Esperanza Gatica MD Unavailable +[phone] Esperanza Gatica MD Unavailable +[phone] Katrin Orellana PA-C Unavailable [phone] Cristina Hsieh [facility] Unavailable Cory Alfreda Liu PA-C Unavailable [phone] Alfreda Ray Alexa KING Unavailable [phone] Cristina Hsieh [facility] Unavailable Dakota Tatum MD Unavailable Dakota Tatum MD Unavailable Srinivas Marie DO Unavailable [phone] Reason for Visit * Reason Onset Date Comments Refill Request 08/30/2013 Multiple meds Encounter Details Date Type Department Care Team (Late st Contact Info) Description 08/30/2013 MyC Medical Advice [place] 167075 [facility], [facility] 100 [place] [address] [place] [address] [place] [address] Refill Request (Multiple meds) Social History Tobacco Use Types Packs/Day Years Used Date Smoking Tobacco: Former Cigarettes Q uit: 06/21/1973 Smokeless Tobacco: Former Alcohol Use Standard Drinks/Week Comments Yes 0 (1 standard drink = 0.6 oz pur e alcohol) rarely Comments No Sex and Gender Information Value Date Recorded Sex Assigned at Female 08/17/2018 7:56 AM MILITARY LOGISTICS SPECIALIST Legal Sex Female 4:24 AM MILITARY LOGISTICS SPECIALIST Gender Identity Female 08/17/2018 7:56 AM MILITARY LOGISTICS SPECIALIST Sexual Orientation Straight 08/17/2018 7: 56 AM MILITARY LOGISTICS SPECIALIST documented as of this encounter Plan of Treatment Upcoming Encounters Date Type Department Care Team (Late st Contact Info) Description 09/07/2024 10:00 AM CDT Office Visit [address] 200 [place] [address] Fransisco Eddy MD [address] [place] [address] 09/18/2024 2:00 PM CDT Virtual Visit [facility] [address] [place] [address] 105 [place] [address] Shanna Vang PA-C [address] [place] [address] 03/29/2025 3:40 PM CDT Office Visit [address] [place] [address] Alfreda Ray PA-C [address] [place] [address] 109742 documented as of this encounter Visit Diagnoses Diagnosis HTN (hypertension), benign- Primary Essential hypertension, benign Insomnia, unspecified Hyperlipidemia LDL goal <160 Other and unspecified hyperlipidemia documented in this encounter Additional Health Concerns Infection Onset Date Last Indicated Resolved Time Rule Out COVID-19 05/08/2021 05/08/2021 05/09/2021 9:08 PM MILITARY LOGISTICS SPECIALIST documented as of this encounter Care Teams Apartment Groundskeeper Relationship Specialty Start Date End Date Esperanza Gatica MD PCP - General Family Practice 10/13/11 12/29/21 [place] [address] LISB[address] GARCIA [address] PCP - Assigned PCP 12/05/17 08/23/18 Alfreda Ray PA-C [address] [place] [address] 446512 PCP - General Family Medicine 12/30/21 [place] [address] [address]ISB[address] GARCIA [address] Assigned PCP 12/05/17 09/30/19 [place] [address] [place] [address] Assigned PCP 10/01/19 03/02/20 [place] [address] [place] [address] Assigned PCP 03/03/20 05/25/20 [place] [address] LISB[address] GARCIA [address] Assigned PCP 05/26/20 09/28/20 [place] [address] [place] [address] Assigned PCP 09/29/20 07/31/22 [place] [address] [place] [address] [place] [address] Assigned Musculoskeletal Provider 10/20/20 04/17/22 Alfreda Ray PA-C [address] [place] [address] 260872 Referring Physician Family Medicine 12/31/21 Katrin Orellana PA-C [address] [place] [address] 615165 Physician Actionscript Developer Dermatology 12/31/21 Shanna Vang PA-C [address] [place] [address] Assigned Cancer Care Provider 01/10/22 Fransisco Eddy MD [address] [place] [address] 88 [place] [address] Assigned Rheumatology Provider 05/09/22 [place] [address] [place] [address] Assigned Pain Medication Provider 06/29/22 09/04/22 [place] [address] [address] [place] [address] Assigned PCP 08/15/22 08/28/22 Katrin Orellana PA-C [address] [place] [address] Assigned Surgical Provider 08/15/22 02/10/24 [place] [address] [place] [address] [place] [address] Pharmacist Pharmacist 09/07/22 Alfreda Ray PA-C [address] [place] [address] Assigned Pain Medication Provider 09/05/22 09/10/23 Alfreda Ray PA-C [address] [place] [address] Assigned PCP 08/29/22 Cristina Hsieh [facility] [address] [address] Assigned MTM Pharmacist 09/26/22 Dakota Tatum MD [address] [place] [address] Cardiovascular Disease 03/25/23 Dakota Tatum MD [address] [place] [address] Assigned Heart and Vascular Provider 05/01/23 [place] [address] CE[address] GASTELUM, [facility] [address] [place] [address] Assigned Musculoskeletal Provider 04/12/24 documented as of this encounter
--- OUTSIDE RECORDS SUMMARY | 2024-07-28 12:38 | XMS_ITS | Encounter Summary ---
Author Organization [facility] Address [address] [place] [address] 12784 Care Team Providers Care Anodiser Name Role Phone Esperanza Gatica MD Primary Care Provider + Esperanza Gatica MD Unavailable +[phone] Esperanza Gatica MD Unavailable +[phone] Esperanza Gatica MD Unavailable +[phone] Esperanza Gatica MD Unavailable +[phone] Esperanza Gatica MD Unavailable +[phone] Esperanza Gatica MD Unavailable +[phone] Jesús Orourke MD Unavailable Alfreda RayC Primary Care Provider + Alfreda Ray PA-C Unavailable + [phone] Katrin Orellana PA-C Unavailable +[phone] Shanna VangC Unavailable +[phone] Fransisco Eddy MD Unavailable +[phone] Esperanza Gatica MD Unavailable +[phone] Esperanza Gatica MD Unavailable +[phone] Katrin Orellana PA-C Unavailable Cristina Hsieh [facility] Unavailable Cory Alfreda Liu PA-C Unavailable +[phone] Ho Raymustapha Liu PA-C Unavailable +[phone] Cristina Hsieh [facility] Unavailable Dakota Tatum MD Unavailable +[phone] Dakota Tatum MD Unavailable +[phone] Srinivas Marie DO Unavailable +[phone] Reason for Visit * Reason Onset Date Comments Hip Pain 07/08/2012 Hip pain Encounter Details Date Type Department Care Team (Late st Contact Info) Description 07/08/2012 MyC Medical Advice [address], [address] [place] [address] [place] [address] [place] [address] Hip Pain (Hip pain) Social History Tobacco Use Types Packs/Day Years Used Date Smoking Tobacco: Former Cigarettes Q uit: 06/21/1973 Smokeless Tobacco: Former Alcohol Use Standard Drinks/Week Comments Yes 0 (1 standard drink = 0.6 oz pur e alcohol) rarely Comments No Sex and Gender Information Value Date Recorded Sex Assigned at Female 08/17/2018 7:56 AM BOOKS BINDER Legal Sex Female 4:24 AM BOOKS BINDER Gender Identity Female 08/17/2018 7:56 AM BOOKS BINDER Sexual Orientation Straight 08/17/2018 7: 56 AM BOOKS BINDER documented as of this encounter Miscellaneous Notes * Telephone Encounter - Esperanza Gatica MD - 07/08/2012 10:42 AM BOOKS BINDER Ok to take flexeril, faxed and she can take the vicodin, which she was given 90 in May. Is she out?Please make appt for hip pain if not improving S BINDER documented in this encounter Plan of Treatment Upcoming Encounters Date Type Department Care Team (Late st Contact Info) Description 09/07/2024 10:00 AM CDT Office Visit [facility] [place] [address] [facility] 200 [place] [phone] Fransisco Eddy MD [address] [place] [address] 88 [place] [address] 09/18/2024 2:00 PM CDT Virtual Visit [facility] [address] [place] [address] 105 [place] [address] Shanna Vang PA-C [address] [place] [address] 481484 03/29/2025 3:40 PM CDT Office Visit [address] [phone] Alfreda Ray PA-C [address] [place] [address] 396602 documented as of this encounter Visit Diagnoses Diagnosis Hip pain- Primary Pain in joint, pelvic region and thigh documented in this encounter Additional Health Concerns Infection Onset Date Last Indicated Resolved Time Rule Out COVID-19 05/08/2021 05/08/2021 05/09/2021 9:08 PM BOOKS BINDER documented as of this encounter Care Teams Anodiser Relationship Specialty Start Date End Date Esperanza Gatica MD PCP - General Family Practice 10/13/11 12/29/21 [place] [address] [place] [address] PCP - Assigned PCP 12/05/17 08/23/18 Alfreda Ray PA-C [address] [place] [address] PCP - General Family Medicine 12/30/21 [place] [address] [place] [address] Assigned PCP 12/05/17 09/30/19 [place] [address] [place] [address] Assigned PCP 10/01/19 03/02/20 [place] [address] [place] [address] Assigned PCP 03/03/20 05/25/20 [place] [address] [place] [address] Assigned PCP 05/26/20 09/28/20 [place] [address] [place] [address] Assigned PCP 09/29/20 07/31/22 [place] [address] [place] [address] Assigned Musculoskeletal Provider 10/20/20 04/17/22 Alfreda Ray PA-C [address] [place] [address] Referring Physician Family Medicine 12/31/21 Katrin Orellana PA-C [address] [address] Physician Refrigeration Operator Dermatology 12/31/21 Shanna Vang PA-C [address] 315094 Assigned Cancer Care Provider 01/10/22 Fransisco Eddy MD [address] [place] [address] 955985 Assigned Rheumatology Provider 05/09/22 [place] [address] [place] [address] Assigned Pain Medication Provider 06/29/22 09/04/22 [place] [address] [address]IA [address] Assigned PCP 08/15/22 08/28/22 Katrin Orellana PA-C [address] [place] [address] Assigned Surgical Provider 08/15/22 02/10/24 Cristina Hsieh, [facility] [address] [facility] [place] [address] Pharmacist Pharmacist 09/07/22 Alfreda Ray PA-C [address] [place] [address] Assigned Pain Medication Provider 09/05/22 09/10/23 Alfreda Ray PA-C [address] [place] [address] 47721 Assigned PCP 08/29/22 Cristina Hsieh, [facility] [address] [facility] 101 [place] [address] Assigned MTM Pharmacist 09/26/22 Dakota Tatum MD [address] [place] [address] 918535 Cardiovascular Disease 03/25/23 Dakota Tatum MD [address] [place] [address] 966035 Assigned Heart and Vascular Provider 05/01/23 [place] [address] [address], [facility] [address] [place] [address] Assigned Musculoskeletal Provider 04/12/24 documented as of this encounter
--- OUTSIDE RECORDS SUMMARY | 2024-07-28 12:38 | XMS_ITS | Encounter Summary ---
Author Organization [facility] Address [address] [place] [address] 32181 Care Team Providers Care Billet Inspector Name Role Phone Esperanza Gatica MD Primary Care Provider + Esperanza Gatica MD Unavailable + Esperanza Gatica MD Unavailable + Jesús Orourke MD Unavailable Alfreda Ray-C Primary Care Provider + Alfreda Ray-C Unavailable +[phone] Katrin Orellana PA-C Unavailable +[phone] Shanna Vang PA-C Unavailable +[phone] Fransisco Eddy MD Unavailable +[phone] Esperanza Gatica MD Unavailable + Esperanza Gatica MD Unavailable + Katrin OrellaanC Unavailable +[phone] Cristina Hsieh [facility] Unavailable +[phone] Alfreda Ray PA-C Unavailable +[phone] Alfreda Ray PA-C Unavailable +[phone] Cristina Hsieh [facility] Unavailable +[phone] Dakota Tatum MD Unavailable +[phone] Dakota Tatum MD Unavailable + Cynthia, Srinivas Unavailable +[phone] Encounter Details Date Type Department Care Team (Late st Contact Info) Description 07/04/2020 MyC Medical Advice [address] [address] [place] [address] [place] [address] Social History Tobacco Use Types Packs/Day Years [...] Sex Assigned at Female 08/17/2018 7:56 AM NEEDLE LOOM OPERATOR Legal Sex Female 4:24 AM NEEDLE LOOM OPERATOR Gender Identity Female 08/17/2018 7:56 AM NEEDLE LOOM OPERATOR Sexual Orientation Straight 08/17/2018 7: 56 AM NEEDLE LOOM OPERATOR documented as of this encounter Plan of Treatment Upcoming Encounters Date Type Department Care Team (Late st Contact Info) Description 09/07/2024 10:00 AM CDT Office Visit [facility] [address] 200 [place] [phone] Fransisco Eddy MD [address] [place] [address] 88 [place], [place] 575515 09/18/2024 2:00 PM CDT Virtual Visit [facility] [address] [place] [address] 105 [place] [phone] Shanna Vang, PA-C [address] [place] [address] [id number] 03/29/2025 3:40 PM CDT Office Visit [address] [phone] Alfreda Ray PA-C [address] [place] [address] 132612 documented as of this encounter Visit Diagnoses Not on filedocumented in this encounter Additional Health Concerns Infection Onset Date Last Indicated Resolved Time Rule Out COVID-19 05/08/2021 05/08/2021 05/09/2021 9:08 PM NEEDLE LOOM OPERATOR Assessment Noted Time PHQ-9 Depression Total Score: 1 08/20/19 1:44 PM NEEDLE LOOM OPERATOR documented as of this encounter Care Teams Billet Inspector Relationship Specialty Start Date End Date Esperanza Gatica MD PCP - General Family Practice 10/13/11 12/29/21 Alfreda Ray PA-C [address] [place] [address] 663272 PCP - General Family Medicine 12/30/21 [place] [address] [place] [place]ARCIA [address] Assigned PCP 05/26/20 09/28/20 [place] [address] [address]ARCIA [address] Assigned PCP 09/29/20 07/31/22 Jesú[place] [address] [place] [address] Assigned Musculoskeletal Provider 10/20/20 04/17/22 Alfreda Ray PA-C [address] [place] [address] Referring Physician Family Medicine 12/31/21 Katrin Orellana PA-C [address] [place] [address] 952515 Physician Energy Professional Dermatology 12/31/21 Shanna Vang PA-C [address] 598404 Assigned Cancer Care Provider 01/10/22 Fransisco Eddy MD [address] [place] [address] 022085 Assigned Rheumatology Provider 05/09/22 [place] [address] [place] [address] Assigned Pain Medication Provider 06/29/22 09/04/22 [place] [address] [place] [address] Assigned PCP 08/15/22 08/28/22 Katrin Orellana PA-C [address] [place] [address] 675155 Assigned Surgical Provider 08/15/22 02/10/24 Cristina Hsieh, [facility] [address] [facility] [place]BETH HERNANDEZ [address] Pharmacist Pharmacist 09/07/22 Alfreda Ray PA-C [address] [place] [address]87[address] Assigned Pain Medication Provider 09/05/22 09/10/23 Alfreda Ray PA-C [address] [place] [address] Assigned PCP 08/29/22 Cristina Hsieh, [facility] [address] [address] Assigned MTM Pharmacist 09/26/22 Dakota Tatum MD [address] [place] [address] Cardiovascular Disease 03/25/23 Dakota Tatum MD [address] [place] [address]46 Assigned Heart and Vascular Provider 05/01/23 [place] [address] [place] , [address] [address] Assigned Musculoskeletal Provider 04/12/24 documented as of this encounter
--- OUTSIDE RECORDS SUMMARY | 2024-07-28 12:38 | XMS_ITS | Encounter Summary ---
Author Organization [facility] Address [address] [place] [address] Care Team Providers Care Pulmonologist Intensivist Name Role Phone Esperanza Gatica MD Primary Care Provider + Esperanza Gatica MD Unavailable +[phone] Esperanza Gatica MD Unavailable +[phone] Esperanza Gatica MD Unavailable +[phone] Esperanza Gatica MD Unavailable +[phone] Esperanza Gatica MD Unavailable +[phone] Esperanza Gatica MD Unavailable +[phone] Jesús Orourke MD Unavailable Alfreda RayC Primary Care Provider + Alfreda Ray PA-C Unavailable + [phone] Katrin Orellana PA-C Unavailable [phone] Shanna VangC Unavailable +[phone] Fransisco Eddy MD Unavailable +[phone] Esperanza Gatica MD Unavailable +[phone] Esperanza Gatica MD Unavailable +[phone] Katrin Orellana PA-C Unavailable Cristina Hsieh [facility] Unavailable Ho Raymustapha Liu PA-C Unavailable +[phone] Alfreda Ray Alexa KING Unavailable +[phone] Cristina Hsieh [facility] Unavailable [phone] Dakota Tatum MD Unavailable Dakota Tatum MD Unavailable [phone] Srinivas Marie DO Unavailable [phone] Reason for Visit * Reason Onset Date Comments Refill Request 01/01/2013 ultram Encounter Details Date Type Department Care Team (Late st Contact Info) Description 01/01/2013 MyC Refill M [address], [address] [place] [address] [place] [address] [place] [address] Refill Request (ultram) Social History Tobacco Use Types Packs/Day Years Used Date Smoking Tobacco: Former Cigarettes Q uit: 06/21/1973 Smokeless Tobacco: Former Alcohol Use Standard Drinks/Week Comments Yes 0 (1 standard drink = 0.6 oz pur e alcohol) rarely Comments No Sex and Gender Information Value Date Recorded Sex Assigned at Female 08/17/2018 7:56 AM PLASTIC SHAPER Legal Sex Female 4:24 AM PLASTIC SHAPER Gender Identity Female 08/17/2018 7:56 AM PLASTIC SHAPER Sexual Orientation Straight 08/17/2018 7: 56 AM PLASTIC SHAPER documented as of this encounter Miscellaneous Notes [...] MG tablet [Esperanza Gatica MD] Preferred pharmacy: [id number] Comment: Sent from my iPad documented in this encounter Plan of Treatment Upcoming Encounters Date Type Department Care Team (Late st Contact Info) Description 09/07/2024 10:00 AM CDT Office Visit [facility] [address] 200 [place] [phone] Fransisco Eddy MD [address] [place] [address] 88 [place], [place] 362435 09/18/2024 2:00 PM CDT Virtual Visit [facility] [place] [address] 105 [place] [phone] Shanna Vang, [facility] [address] [place] [address] 03/29/2025 3:40 PM CDT Office Visit [address] [place] [phone] Alfreda Ray PA-C [address] [place] [address] [phone] documented as of this encounter Visit Diagnoses Diagnosis Knee pain- Primary Pain in joint, lower leg documented in this encounter Additional Health Concerns Infection Onset Date Last Indicated Resolved Time Rule Out COVID-19 05/08/2021 05/08/2021 05/09/2021 9:08 PM PLASTIC SHAPER documented as of this encounter Care Teams Pulmonologist Intensivist Relationship Specialty Start Date End Date Esperanza Gatica MD PCP - General Family Practice 10/13/11 12/29/21 [place] [address] [place] [address] PCP - Assigned PCP 12/05/17 08/23/18 Alfreda Ray PA-C [address] [place] [address] PCP - General Family Medicine 12/30/21 [place] [address] [place] [address] Assigned PCP 12/05/17 09/30/19 [place] [address] [place] [address] Assigned PCP 10/01/19 03/02/20 [place] [address] [place] [address] Assigned PCP 03/03/20 05/25/20 [place] [address] [place] [address] Assigned PCP 05/26/20 09/28/20 [place] [address] [place] [address] Assigned PCP 09/29/20 07/31/22 [place] [address] [address] Assigned Musculoskeletal Provider 10/20/20 04/17/22 Alfreda Ray PA-C [address] [place] [address] 045782 Referring Physician Family Medicine 12/31/21 Katrin Orellana PA-C [address] [place] [address] 268795 Physician Lap Cutter Dermatology 12/31/21 Shanna Vang PA-C [facility] 015464 Assigned Cancer Care Provider 01/10/22 Fransisco Eddy MD [address] [place] [address] [phone] Assigned Rheumatology Provider 05/09/22 [place] [address] [address] GARCIA [address] Assigned Pain Medication Provider 06/29/22 09/04/22 [place] [address] [address]ARCIA [address] Assigned PCP 08/15/22 08/28/22 Katrin Orellana PA-C [address] [place] [address] [phone] Assigned Surgical Provider 08/15/22 02/10/24 Cristina Hsieh [facility] 3[address] [facility] [place]DE[place] [address] Pharmacist Pharmacist 09/07/22 Alfreda Ray PA-C [address] [place] [address] 334892 Assigned Pain Medication Provider 09/05/22 09/10/23 Alfreda Ray PA-C [address] [place] [address] 911272 Assigned PCP 08/29/22 Cristina Hsieh [facility] [address] [place] [address] Assigned MTM Pharmacist 09/26/22 Dakota Tatum MD [address] [place] [address] 873075 Cardiovascular Disease 03/25/23 Dakota Tatum MD [address] [place] [address] Assigned Heart and Vascular Provider 05/01/23 [place] [address] [place] , [address] [address] Assigned Musculoskeletal Provider 04/12/24 documented as of this encounter
--- OUTSIDE RECORDS SUMMARY | 2024-07-28 12:38 | XMS_ITS | Encounter Summary ---
Author Organization [facility] Address [address] [place] [address] Care Team Providers Care Manufacturing Leader Name Role Phone Esperanza Gatica MD Primary Care Provider + Esperanza Gatica MD Unavailable +[phone] Esperanza Gatica MD Unavailable +[phone] Esperanza Gatica MD Unavailable +560 Esperanza Gatica MD Unavailable +343 Esperanza Gatica MD Unavailable +287 Esperanza Gatica MD Unavailable +[phone] Jesús Orourke MD Unavailable Alfreda RayC Primary Care Provider + Alfreda Ray PA-C Unavailable + [phone] Katrin Orellana PA-C Unavailable +[phone] Shanna VangC Unavailable +[phone] Fransisco Eddy MD Unavailable +[phone] Esperanza Gatica MD Unavailable +[phone] Esperanza Gatica MD Unavailable +[phone] Katrin Orellana PA-C Unavailable +[phone] Cristina Hsieh [facility] Unavailable Cory Alfreda Liu PA-C Unavailable +[phone] Ho Raymustapha Liu PA-C Unavailable +[phone] Cristina Hsieh [facility] Unavailable +[phone] Dakota Tatum MD Unavailable +[phone] Dakota Tatum MD Unavailable +[phone] Srinivas Marie DO Unavailable [phone] Reason for Visit * Reason Onset Date Comments Medication Question 07/01/2012 Ambien and T razodone Encounter Details Date Type Department Care Team (Late st Contact Info) Description 07/01/2012 MyC Medical Advice [address], [address] [place] [address] [place] [address] [place] [address] Medication Question (Ambien and Trazodone) Social History Tobacco Use Types Packs/Day Years Used Date Smoking Tobacco: Former Cigarettes Q uit: 06/21/1973 Smokeless Tobacco: Former Alcohol Use Standard Drinks/Week Comments Yes 0 (1 standard drink = 0.6 oz pur e alcohol) rarely Comments No Sex and Gender Information Value Date Recorded Sex Assigned at Female 08/17/2018 7:56 AM SENSITOMETRIST Legal Sex Female 4:24 AM SENSITOMETRIST Gender Identity Female 08/17/2018 7:56 AM SENSITOMETRIST Sexual Orientation Straight 08/17/2018 7: 56 AM SENSITOMETRIST documented as of this encounter Miscellaneous Notes * Telephone Encounter - Esperanza Gatica MD - 07/01/2012 1:43 PM SENSITOMETRIST I recommend she try to stop the ambien 5mg after another week or so, and she can always take 2 of the trazodone while weaning off the ambien. Let us know how she is doing in the next week again. ITOMETRIST documented in this encounter Plan of Treatment Upcoming Encounters Date Type Department Care Team (Late st Contact Info) Description 09/07/2024 10:00 AM CDT Office Visit [facility] [place] [address] [facility] 200 [place] [phone] Fransisco Eddy MD [address] [place] [address] 88 [place] [address] 09/18/2024 2:00 PM CDT Virtual Visit [facility] [address] [place] [address] 105 [place] [phone] Shanna Vang, PARobinson [address] [place] [address] 03/29/2025 3:40 PM CDT Office Visit [address] [address] Alfreda Ray PA-C [address] [place] [address] 039052 documented as of this encounter Visit Diagnoses Not on filedocumented in this encounter Additional Health Concerns Infection Onset Date Last Indicated Resolved Time Rule Out COVID-19 05/08/2021 05/08/2021 05/09/2021 9:08 PM SENSITOMETRIST documented as of this encounter Care Teams Manufacturing Leader Relationship Specialty Start Date End Date Esperanza Gatica MD PCP - General Family Practice 10/13/11 12/29/21 [place] [address] [place] [address] PCP - Assigned PCP 12/05/17 08/23/18 Alfreda Ray PA-C [address] [place] [address] PCP - General Family Medicine 12/30/21 [place] [address] [place] [address] Assigned PCP 12/05/17 09/30/19 [place] [address] [place] [address] Assigned PCP 10/01/19 03/02/20 [place] [address] [place] [address] Assigned PCP 03/03/20 05/25/20 [place] [address] [place] [address] Assigned PCP 05/26/20 09/28/20 [place] [address] [place] [address] Assigned PCP 09/29/20 07/31/22 [place] [address] [place] [address] Assigned Musculoskeletal Provider 10/20/20 04/17/22 Alfreda Ray PA-C [address] [place] [address] Referring Physician Family Medicine 12/31/21 Katrin Orellana PA-C [address] [address] Physician Circulator Dermatology 12/31/21 Shanna Vang PA-C [address] [place] [address] 913834 Assigned Cancer Care Provider 01/10/22 Fransisco Eddy MD [address] [place] [address] 430675 Assigned Rheumatology Provider 05/09/22 [place] [address] [place] [address] Assigned Pain Medication Provider 06/29/22 09/04/22 [place] [address] [place] [address] Assigned PCP 08/15/22 08/28/22 Katrin Orellana PA-C [address] [place] [address] 840695 Assigned Surgical Provider 08/15/22 02/10/24 Cristina Hsieh [facility] 3[address] [facility] LISBETH HERNANDEZ [address] Pharmacist Pharmacist 09/07/22 Alfreda Ray PA-C [address] [place] [address] Assigned Pain Medication Provider 09/05/22 09/10/23 Alfreda Ray PA-C [address] [place] [address] 898392 Assigned PCP 08/29/22 Cristina Hsieh, [facility] [address] [place] [address] Assigned MTM Pharmacist 09/26/22 Dakota Tatum MD [address] [place] [address] 705805 Cardiovascular Disease 03/25/23 Dakota Tatum MD [address] [place] [address] Assigned Heart and Vascular Provider 05/01/23 [place] [address] [address] [place], [address] [address] Assigned Musculoskeletal Provider 04/12/24 documented as of this encounter
--- OUTSIDE RECORDS SUMMARY | 2024-07-28 12:38 | XMS_ITS | Encounter Summary ---
Author Organization [place] Address [address] [place] [address] Care Team Providers Care Water Control Station Engineer Name Role Phone Esperanza Gatica MD Primary Care Provider + Esperanza Gatica MD Unavailable + Jesús Orourke MD Unavailable Alfreda Ray-C Primary Care Provider + Alfreda RayC Unavailable +[phone] Katrin Orellana PA-C Unavailable +[phone] Shanna Vang PA-C Unavailable +[phone] Fransisco Eddy MD Unavailable +[phone] Esperanza Gatica MD Unavailable + Esperanza Gatica MD Unavailable + Katrin OrellanaC Unavailable +[phone] Cristina Hsieh [facility] Unavailable +[phone] Alfreda Ray PA-C Unavailable +[phone] Alfreda Ray PA-C Unavailable +[phone] Cristina Hsieh [facility] Unavailable +[phone] Dakota Tatum MD Unavailable Dakota Tatum MD Unavailable + [phone] Srinivas Marie DO Unavailable +[phone] Reason for Visit * Reason Onset Date Comments Refill Request 10/27/2020 Encounter Details Date Type Department Care Team ([facility] Contact Info) Description 10/27/2020 MyC Refill [address], [address] [place] [address] [place] [address] [place] [address] Refill Request Social History Tobacco [...] Sex Assigned at Female 08/17/2018 7:56 AM SAND CARRIER Legal Sex Female 4:24 AM SAND CARRIER Gender Identity Female 08/17/2018 7:56 AM SAND CARRIER Sexual Orientation Straight 08/17/2018 7: 56 AM SAND CARRIER COVID-19 Exposure Response Date Recorded In the last month, have you been in contact with someone who was confirmed or suspected to have Coronavirus / COVID-19? No / Unsure 10/29/2020 2:27 PM CDT documented as of this encounter Plan of Treatment Upcoming Encounters Date Type Department Care Team ([facility] Contact Info) Description 09/07/2024 10:00 AM CDT Office Visit [facility] [address] [place] [address] Fransisco Eddy MD [address] [place] [address] 88 [place] [address] 09/18/2024 2:00 PM CDT Virtual Visit [facility] [address] [place] [address] [address] [place] [address] Shanna Vang PA-C [address] [place] [address] 03/29/2025 3:40 PM CDT Office Visit [address] [phone] Alfreda Ray PA-C [address] [place] [address] 180022 documented as of this encounter Visit Diagnoses Diagnosis Primary osteoarthritis involving multiple joints documented in this encounter Additional Health Concerns Infection Onset Date Last Indicated Resolved Time Rule Out COVID-19 05/08/2021 05/08/2021 05/09/2021 9:08 PM SAND CARRIER Assessment Noted Time PHQ-9 Depression Total Score: 0 08/31/19 21 11:22 AM SAND CARRIER documented as of this encounter Care Teams Water Control Station Engineer Relationship Specialty Start Date End Date Esperanza Gatica MD PCP - General Family Practice 10/13/11 12/29/21 Alfreda Ray PA-C [address] [place] [address] [phone] PCP - General Family Medicine 12/30/21 [place] [address] [place] [address] Assigned PCP 09/29/20 07/31/22 Jesú[place] [address] [place] [address] Assigned Musculoskeletal Provider 10/20/20 04/17/22 Alfreda Ray PA-C [address] [place] [address] Referring Physician Family Medicine 12/31/21 Katrin Orellana PA-C [address] [place] [address] 762995 Physician Roll Setter Dermatology 12/31/21 Shanna Vang PA-C [address] [place] [address] 186184 Assigned Cancer Care Provider 01/10/22 Fransisco Eddy MD [address] [place] [address] 868565 Assigned Rheumatology Provider 05/09/22 [place] [address] [place] [address] Assigned Pain Medication Provider 06/29/22 09/04/22 [place] [address] [place] [address] Assigned PCP 08/15/22 08/28/22 Katrin Orellana PA-C [address] [place] [address] 238125 Assigned Surgical Provider 08/15/22 02/10/24 Cristina Hsieh [facility] [address] [facility] [place] [address] Pharmacist Pharmacist 09/07/22 Alfreda Ray PA-C [address] [place] [address] Assigned Pain Medication Provider 09/05/22 09/10/23 Alfreda Ray PA-C [address] [place] [address]013 Assigned PCP 08/29/22 Cristina Hsieh, [facility] [address] [address] Assigned MTM Pharmacist 09/26/22 Dakota Tatum MD [address] [place] [address] Cardiovascular Disease 03/25/23 Dakota Tatum MD [address] [place] [address] [phone] Assigned Heart and Vascular Provider 05/01/23 [place] [address] [facility], [address] [address] Assigned Musculoskeletal Provider 04/12/24 documented as of this encounter
--- OUTSIDE RECORDS SUMMARY | 2024-07-28 12:38 | XMS_ITS | Encounter Summary ---
Author Organization [place] Address [address] [place] [address] Care Team Providers Care Knowledge Management Consultant Name Role Phone Esperanza Gatica MD Primary Care Provider + Esperanza Gatica MD Unavailable + Jesús Orourke MD Unavailable Alfreda Ray-C Primary Care Provider + Alfreda RayC Unavailable +[phone] Katrin Orellana PA-C Unavailable +[phone] Shanna Vang PA-C Unavailable +[phone] Fransisco Eddy MD Unavailable +[phone] Esperanza Gatica MD Unavailable + Esperanza Gatica MD Unavailable + Katrin OrellanaC Unavailable +[phone] Cristina Hsieh [facility] Unavailable +[phone] Alfreda Ray PA-C Unavailable +[phone] Alfreda Ray PA-C Unavailable +2600 Cristina Hsieh [facility] Unavailable +[phone] Dakota Tatum MD Unavailable Dakota Tatum MD Unavailable +[phone] Srinivas Marie DO Unavailable [phone] Reason for Visit * Reason Comments Medication Refill Encounter Details Date Type Department Care Team (Late st Contact Info) Description 11/06/2020 Refill [facility] [address] [place] [address] [place] [address] [place] [address] Medication Refill Social History Tobacco [...] Sex Assigned at Female 08/17/2018 7:56 AM POWDER NIPPER Legal Sex Female 4:24 AM POWDER NIPPER Gender Identity Female 08/17/2018 7:56 AM POWDER NIPPER Sexual Orientation Straight 08/17/2018 7: 56 AM POWDER NIPPER COVID-19 Exposure Response Date Recorded In the last month, have you been in contact with someone who was confirmed or suspected to have Coronavirus / COVID-19? No / Unsure 11/05/2020 1:48 PM CDT documented as of this encounter Miscellaneous Notes * Telephone Encounter - Caitlin Waterman RN - 11/07/2020 10:23 AM CDT Prescription approved per [facility] protocol. Caitlin Waterman RN on 11/07/2020 at 10:23 AM documented in this encounter Plan of Treatment Upcoming Encounters Date Type Department Care Team (Late st Contact Info) Description 09/07/2024 10:00 AM CDT Office Visit [address] [address] Fransisco Eddy MD [address] [facility] 88 [place] [address] 09/18/2024 2:00 PM CDT Virtual Visit [facility] [address] [place] [address] Shanna Vang PA-C [address] [place] [address] 03/29/2025 3:40 PM CDT Office Visit [address] [place] [address] Alfreda Ray PA-C [address] [place] [address] 403532 documented as of this encounter Visit Diagnoses Diagnosis HTN, goal below 140/90 Unspecified essential hypertension documented in this encounter Additional Health Concerns Infection Onset Date Last Indicated Resolved Time Rule Out COVID-19 05/08/2021 05/08/2021 05/09/2021 9:08 PM POWDER NIPPER Assessment Noted Time PHQ-9 Depression Total Score: 0 08/31/19 21 11:22 AM POWDER NIPPER documented as of this encounter Care Teams Knowledge Management Consultant Relationship Specialty Start Date End Date Esperanza Gatica MD PCP - General Family Practice 10/13/11 12/29/21 Alfreda Rya PA-C [address] [place] [address] 224502 PCP - General Family Medicine 12/30/21 [place] [address] [place] [address] Assigned PCP 09/29/20 07/31/22 Jesú[place] [address] 047477 Assigned Musculoskeletal Provider 10/20/20 04/17/22 Alfreda Ray PA-C [address] [place] [address] [phone] Referring Physician Family Medicine 12/31/21 Katrin Orellana PA-C [address] [place] [address] 307255 Physician Tire Buffer Dermatology 12/31/21 Shanna Vang PA-C [address] [place] [address] [phone] Assigned Cancer Care Provider 01/10/22 Fransisco Eddy MD [address] [place] [address] 050405 Assigned Rheumatology Provider 05/09/22 [place] [address] [place] [address] Assigned Pain Medication Provider 06/29/22 09/04/22 [place] [address] [place] [address] Assigned PCP 08/15/22 08/28/22 Katrin Orellana PA-C [address] [place] [address] 619685 Assigned Surgical Provider 08/15/22 02/10/24 Cristina Hsieh, [facility] 3[address] [facility] [place] [facility] [place] [address] Pharmacist Pharmacist 09/07/22 Alfreda Ray PA-C [address] [place] [address] Assigned Pain Medication Provider 09/05/22 09/10/23 Alfreda Ray PA-C [address] [place] [address]39 Assigned PCP 08/29/22 Cristina Hsieh [facility] [address] [place] [address] Assigned MTM Pharmacist 09/26/22 Dakota Tatum MD [address] [place] [address] Cardiovascular Disease 03/25/23 Dakota Tatum MD [address] [place] [address] Assigned Heart and Vascular Provider 05/01/23 [place] [address] [address] , [address] [address] Assigned Musculoskeletal Provider 04/12/24 documented as of this encounter
--- OUTSIDE RECORDS SUMMARY | 2024-07-28 12:38 | XMS_ITS | Encounter Summary ---
Author Organization [place] Address [address] [place] [address] Care Team Providers Care County Director Welfare Name Role Phone Esperanza Gatica MD Primary Care Provider + Esperanza Gatica MD Unavailable + Jesús Orourke MD Unavailable Alfreda Ray-C Primary Care Provider + Alfreda RayC Unavailable +260 Katrin Orellana PA-C Unavailable +[phone] Shanna Vang PA-C Unavailable +[phone] Fransisco Eddy MD Unavailable +[phone] Esperanza Gatica MD Unavailable + Esperanza Gatica MD Unavailable + Katrin OrellanaC Unavailable +[phone] Cristina Hsieh [facility] Unavailable [phone] Alfreda Ray PA-C Unavailable +2600 Alfreda Ray PA-C Unavailable +2600 Cristina Hsieh [facility] Unavailable [phone] Dakota Tatum MD Unavailable Dakota Tatum MD Unavailable +[phone] Srinivas Marie DO Unavailable [phone] Encounter Details Date Type Department Care Team (Late Contact Info) Description 10/29/2020 MyC Medical Advice [facility] [address] [place] [address] [place] [address] [place] [address] Social History Tobacco Use Types [...] Sex Assigned at Female 08/17/2018 7:56 AM FELLMONGERY WORKER Legal Sex Female 4:24 AM FELLMONGERY WORKER Gender Identity Female 08/17/2018 7:56 AM FELLMONGERY WORKER Sexual Orientation Straight 08/17/2018 7: 56 AM FELLMONGERY WORKER COVID-19 Exposure Response Date Recorded In the last month, have you been in contact with someone who was confirmed or suspected to have Coronavirus / COVID-19? No / Unsure 10/29/2020 2:27 PM CDT documented as of this encounter Plan of Treatment Upcoming Encounters Date Type Department Care Team (Late Contact Info) Description 09/07/2024 10:00 AM CDT Office Visit [facility] [place] [address] [facility] 200 [place] [address] Fransisco Eddy MD [address] [place] [address] 88 [place] [address] 09/18/2024 2:00 PM CDT Virtual Visit [facility] [address] [place] [address] Shanna Vang PA-C [address] [place] [address] 03/29/2025 3:40 PM CDT Office Visit [address] [address] Alfreda Ray PA-C [address] [place] [address] 693822 documented as of this encounter Visit Diagnoses Not on filedocumented in this encounter Additional Health Concerns Infection Onset Date Last Indicated Resolved Time Rule Out COVID-19 05/08/2021 05/08/2021 05/09/2021 9:08 PM FELLMONGERY WORKER Assessment Noted Time PHQ-9 Depression Total Score: 0 08/31/19 21 11:22 AM FELLMONGERY WORKER documented as of this encounter Care Teams County Director Welfare Relationship Specialty Start Date End Date Esperanza Gatica MD PCP - General Family Practice 10/13/11 12/29/21 Alfreda Ray PA-C [address] [place] [address] PCP - General Family Medicine 12/30/21 [place] [address] [place] [address] Assigned PCP 09/29/20 07/31/22 Jesú[place] [address] [place] [address] Assigned Musculoskeletal Provider 10/20/20 04/17/22 Alfreda Ray PA-C [address] [place] [address] Referring Physician Family Medicine 12/31/21 Katrin Orellana PA-C [address] [place] [address] Physician Screen Printing Stencil Preparer Dermatology 12/31/21 Shanna Vang PA-C [address] [address] Assigned Cancer Care Provider 01/10/22 Fransisco Eddy MD [address] [place] [address] Assigned Rheumatology Provider 05/09/22 [place] [address] [place] [address] Assigned Pain Medication Provider 06/29/22 09/04/22 [place] [address] [place] [address] Assigned PCP 08/15/22 08/28/22 Katrin Orellana PA-C [address] [place] [address] Assigned Surgical Provider 08/15/22 02/10/24 Cristina Hsieh [facility] 3[address] [facility] [place] [address] Pharmacist Pharmacist 09/07/22 Alfreda Ray PA-C [address] [place] [address] Assigned Pain Medication Provider 09/05/22 09/10/23 Alfreda Ray PA-C [address] [place] [address]71 Assigned PCP 08/29/22 Cristina Hsieh, [facility] [address] [place] [address] Assigned MTM Pharmacist 09/26/22 Dakota Tatum MD [address] [place] [address] Cardiovascular Disease 03/25/23 Dakota Tatum MD [address] [place] [address] Assigned Heart and Vascular Provider 05/01/23 [place] [address] [address], [address] [address] Assigned Musculoskeletal Provider 04/12/24 documented as of this encounter
--- OUTSIDE RECORDS SUMMARY | 2024-07-28 12:38 | XMS_ITS | Encounter Summary ---
Author Organization [place] Address [address] [place] [address] Care Team Providers Care Thermal Surfacing Machine Operator Name Role Phone Esperanza Gatica MD Primary Care Provider + Esperanza Gatica MD Unavailable +[phone] Esperanza Gatica MD Unavailable +114 Esperanza Gatica MD Unavailable +119 Esperanza Gatica MD Unavailable +[phone] Esperanza Gatica MD Unavailable +[phone] Esperanza Gatica MD Unavailable +[phone] Jesús Orourke MD Unavailable Alfreda RayC Primary Care Provider + Alfreda Ray PA-C Unavailable + [phone] Katrin Orellana PA-C Unavailable +[phone] Shanna VangC Unavailable +[phone] Fransisco Eddy MD Unavailable [phone] Esperanza Gatica MD Unavailable +[phone] Esperanza Gatica MD Unavailable +[phone] Katrin Orellana PA-C Unavailable Cristina Hsieh [facility] Unavailable Alfreda Ray Alexa KING Unavailable +[phone] Alfreda Ray Alexa KING Unavailable +[phone] Cristina Hsieh [facility] Unavailable [phone] Dakota Tatum MD Unavailable [phone] Dakota Tatum MD Unavailable [phone] Srinivas Marie DO Unavailable Reason for Visit * Reason Onset Date Comments Refill Request 07/31/2013 tramadol Encounter Details Date Type Department Care Team (Late st Contact Info) Description 07/31/2013 MyC Refill [address], [facility] [address] [place] [address] [place] [address] [place] [address] Refill Request (tramadol) Social History Tobacco Use Types Packs/Day Years Used Date Smoking Tobacco: Former Cigarettes Q uit: 06/21/1973 Smokeless Tobacco: Former Alcohol Use Standard Drinks/Week Comments Yes 0 (1 standard drink = 0.6 oz pur e alcohol) rarely Comments No Sex and Gender Information Value Date Recorded Sex Assigned at Female 08/17/2018 7:56 AM LAW FIRM ADMINISTRATOR Legal Sex Female 4:24 AM LAW FIRM ADMINISTRATOR Gender Identity Female 08/17/2018 7:56 AM LAW FIRM ADMINISTRATOR Sexual Orientation Straight 08/17/2018 7: 56 AM LAW FIRM ADMINISTRATOR documented as of this encounter Miscellaneous Notes * Telephone Encounter - Diane Macedo - 07/31/2013 2:16 PM CST Does not meet standard requirement for RN refill protocol. Medication: tramadol Last OV: 07/14/12 Provider: MD ZAIDA Reason for visit: HTN, CKD, etc... Last refill: 06/22/13 #30 Please refill if appropriate. Thank you! Diane Macedo RN [facility] Work Force FIRM ADMINISTRATOR * Telephone Encounter - Hellen, Diane - 07/31/2013 2:16 PM CSTMessage from MyChart: Original authorizing provider: MD Alexandria Brannon Zneobia Leeann would like a refill of the following medications: traMADol (ULTRAM) 50 MG tablet [Esperanza Gatica MD] Preferred pharmacy: [id number] Comment: FIRM ADMINISTRATOR documented in this encounter Plan of Treatment Upcoming Encounters Date Type Department Care Team (Late st Contact Info) Description 09/07/2024 10:00 AM CDT Office Visit [facility] [address] [address] Fransisco Eddy MD [address] [place] [address] 09/18/2024 2:00 PM CDT Virtual Visit [facility] [address] [place] [phone] Shanna Vang PA-C [address] [address] 03/29/2025 3:40 PM CDT Office Visit [address] [phone] Alfreda Ray PA-C [address] [place] [address] 619022 documented as of this encounter Visit Diagnoses Diagnosis Knee pain Pain in joint, lower leg documented in this encounter Additional Health Concerns Infection Onset Date Last Indicated Resolved Time Rule Out COVID-19 05/08/2021 05/08/2021 05/09/2021 9:08 PM LAW FIRM ADMINISTRATOR documented as of this encounter Care Teams Thermal Surfacing Machine Operator Relationship Specialty Start Date End Date Esperanza Gatica MD PCP - General Family Practice 10/13/11 12/29/21 [place] [address] [place] [address] PCP - Assigned PCP 12/05/17 08/23/18 Alfreda Ray PA-C [address] [place] [address] PCP - General Family Medicine 12/30/21 [place] [address] [place] [address] Assigned PCP 12/05/17 09/30/19 [place] [address] [place] [place] [address] Assigned PCP 10/01/19 03/02/20 [place] [address] [place] [address] Assigned PCP 03/03/20 05/25/20 [place] [address] [place] G[place]IA [address] Assigned PCP 05/26/20 09/28/20 [place] [address] [place] [place] [address] Assigned PCP 09/29/20 07/31/22 [place] [address] [place] [address] [address] Assigned Musculoskeletal Provider 10/20/20 04/17/22 Alfreda Ray PA-C [address] [place] [address] [phone] Referring Physician Family Medicine 12/31/21 Katrin Orellana PA-C [address] [place] [address] 032125 Physician Bag Bailer Dermatology 12/31/21 Shanna Vang PA-C [address] [place] [address] 854814 Assigned Cancer Care Provider 01/10/22 Fransisco Eddy MD [address] [place] [address] 732925 Assigned Rheumatology Provider 05/09/22 [place] [address] [place] [place] [address] Assigned Pain Medication Provider 06/29/22 09/04/22 [place] [address] [place] [place] [address] Assigned PCP 08/15/22 08/28/22 Katrin Orellana PA-C [address] [place] [address] 261665 Assigned Surgical Provider 08/15/22 02/10/24 Cristina Hsieh, [facility] [address] [facility] [place]NDEZ [address] Pharmacist Pharmacist 09/07/22 Alfreda Ray PA-C [address] [place] [address] 219742 Assigned Pain Medication Provider 09/05/22 09/10/23 Alfreda Ray PA-C [address] [place] [address] Assigned PCP 08/29/22 Cristina Hsieh [facility] [address] [place] [address] Assigned MTM Pharmacist 09/26/22 Dakota Tatum MD [address] [place] [address] Cardiovascular Disease 03/25/23 Dakota Tatum MD [address] [place] [address] Assigned Heart and Vascular Provider 05/01/23 [place] [address] [address], [address] [address] Assigned Musculoskeletal Provider 04/12/24 documented as of this encounter
--- OUTSIDE RECORDS SUMMARY | 2024-07-28 12:38 | XMS_ITS | Encounter Summary ---
Author Organization [place] Address [address] [place] [address] 25322 Care Team Providers Care Living Nurse Name Role Phone Esperanza Gatica MD Primary Care Provider + Esperanza Gatica MD Unavailable + Jesús Orourke MD Unavailable Alfreda aRy-C Primary Care Provider + Alfreda RayC Unavailable +[phone] Katrin Orellana PA-C Unavailable +[phone] Shanna Vang PA-C Unavailable +[phone] Fransisco Eddy MD Unavailable +[phone] Esperanza Gatica MD Unavailable + Esperanza Gatica MD Unavailable + Katrin OrellanaC Unavailable +[phone] Cristina Hsieh [facility] Unavailable +[phone] Alfreda Ray PA-C Unavailable +[phone] Alfreda Ray PA-C Unavailable +[phone] Cristina Hsieh [facility] Unavailable +[phone] Dakota Tatum MD Unavailable Dakota Tatum MD Unavailable Srinivas Marie DO Unavailable [phone] Encounter Details Date Type Department Care Team (Late Contact Info) Description 10/23/2020 MyC Medical Advice [facility] [place] [address] [facility] [address] [place], [place] [phone] Jesú[place] [address] [place], [place] [address] Social History Tobacco Use Types Packs/Day Years [...] Sex Assigned at Female 08/17/2018 7:56 AM PCA Legal Sex Female 4:24 AM PCA Gender Identity Female 08/17/2018 7:56 AM PCA Sexual Orientation Straight 08/17/2018 7: 56 AM PCA COVID-19 Exposure Response Date Recorded In the last month, have you been in contact with someone who was confirmed or suspected to have Coronavirus / COVID-19? No / Unsure 10/16/2020 2:03 PM CDT documented as of this encounter Plan of Treatment Upcoming Encounters Date Type Department Care Team (Late Contact Info) Description 09/07/2024 10:00 AM CDT Office Visit [facility] [address] [place] [address] Fransisco Eddy MD [address] [place] [address] 88 [place] [address] 09/18/2024 2:00 PM CDT Virtual Visit [facility] [address] [place] [address] Shanna Vang PA-C [address] [place] [address] 03/29/2025 3:40 PM CDT Office Visit [address] [address] Alfreda Ray PA-C [address] [place] [address] 604152 documented as of this encounter Visit Diagnoses Not on filedocumented in this encounter Additional Health Concerns Infection Onset Date Last Indicated Resolved Time Rule Out COVID-19 05/08/2021 05/08/2021 05/09/2021 9:08 PM PCA Assessment Noted Time PHQ-9 Depression Total Score: 0 08/31/19 21 11:22 AM PCA documented as of this encounter Care Teams Living Nurse Relationship Specialty Start Date End Date Esperanza Gatica MD PCP - General Family Practice 10/13/11 12/29/21 Alfreda Ray PA-C [address] [place] [address] 13119 PCP - General Family Medicine 12/30/21 [place] [address] [place] [address] Assigned PCP 09/29/20 07/31/22 [place] [address] [place] [address] Assigned Musculoskeletal Provider 10/20/20 04/17/22 Alfreda Ray PA-C [address] [place] [address]18 Referring Physician Family Medicine 12/31/21 Katrin Orellana PA-C [address] [place] [address]57 Physician Powder Truck Driver Dermatology 12/31/21 Shanna Vang PA-C [address] [address] Assigned Cancer Care Provider 01/10/22 Fransisco Eddy MD [address] [place] [address] 26205 Assigned Rheumatology Provider 05/09/22 [place] [address] [place] [address] Assigned Pain Medication Provider 06/29/22 09/04/22 [place] [address] [place] [address] Assigned PCP 08/15/22 08/28/22 Katrin Orellana PA-C [address] [place] [address]777 Assigned Surgical Provider 08/15/22 02/10/24 Cristina Hsieh [facility] [address] [place] [address] LISBETH HERNANDEZ [address] Pharmacist Pharmacist 09/07/22 Alfreda Ray PA-C [address] [place] [address]39 Assigned Pain Medication Provider 09/05/22 09/10/23 Alfreda Ray PA-C [address] [place] [address] 79222 Assigned PCP 08/29/22 Cristina Hsieh, [facility] [address] [place] [address] Assigned MTM Pharmacist 09/26/22 Dakota Tatum MD [address] [place] [address] 08378 Cardiovascular Disease 03/25/23 Dakota Tatum MD [address] [place] [address]4837 Assigned Heart and Vascular Provider 05/01/23 [place] [address] [address], [address] [address] Assigned Musculoskeletal Provider 04/12/24 documented as of this encounter
--- OUTSIDE RECORDS SUMMARY | 2024-07-28 12:38 | XMS_ITS | Encounter Summary ---
Author Organization [place] Address [address] [place] [address] Care Team Providers Care Bundler Name Role Phone Esperanza Gatica MD Primary Care Provider + Esperanza Gatica MD Unavailable +[phone] Esperanza Gatica MD Unavailable +[phone] Esperanza Gatica MD Unavailable +[phone] Esperanza Gatica MD Unavailable +576 Esperanza Gatica MD Unavailable +198 Esperanza Gatica MD Unavailable +[phone] Jesús Orourke MD Unavailable Alfreda RayC Primary Care Provider + Alfreda Ray PA-C Unavailable + [phone] Katrin Orellana PA-C Unavailable [phone] Shanna VangC Unavailable +[phone] Fransisco Eddy MD Unavailable +[phone] Esperanza Gatica MD Unavailable +[phone] Esperanza Gatica MD Unavailable +[phone] Katrin Orellana PA-C Unavailable [phone] Cristina Hsieh [facility] Unavailable Alfreda Ray Alexa KING Unavailable +[phone] Alfreda Ray Alexa KING Unavailable +[phone] Cristina Hsieh [facility] Unavailable +[phone] Dakota Tatum MD Unavailable [phone] Dakota Tatum MD Unavailable [phone] Srinivas Marie DO Unavailable [phone] Reason for Visit * Reason Onset Date Comments Refill Request 01/14/2013 vicodin Encounter Details Date Type Department Care Team (Late st Contact Info) Description 01/14/2013 MyC Refill M [address], [address] [place] [address] [place] [address] [place] [address] Refill Request (vicodin) Social History Tobacco Use Types Packs/Day Years Used Date Smoking Tobacco: Former Cigarettes Q uit: 06/21/1973 Smokeless Tobacco: Former Alcohol Use Standard Drinks/Week Comments Yes 0 (1 standard drink = 0.6 oz pur e alcohol) rarely Comments No Sex and Gender Information Value Date Recorded Sex Assigned at Female 08/17/2018 7:56 AM AIR DEFENSE SPECIALIST Legal Sex Female 4:24 AM AIR DEFENSE SPECIALIST Gender Identity Female 08/17/2018 7:56 AM AIR DEFENSE SPECIALIST Sexual Orientation Straight 08/17/2018 7: 56 AM AIR DEFENSE SPECIALIST documented as of this encounter Miscellaneous [...] Harper - 01/16/2013 11:06 AM CDTMessage from MyChart: Original authorizing provider: MD Alexandria Brannon would like a refill of the following medications: HYDROcodone-acetaminophen (VICODIN) 5-500 MG per tablet [Esperanza Gatica MD] Preferred pharmacy: [id number] Comment: Sent from my iPad documented in this encounter Plan of Treatment Upcoming Encounters Date Type Department Care Team (Late st Contact Info) Description 09/07/2024 10:00 AM CDT Office Visit [facility] [address] [phone] Fransisco Eddy MD [address] [place] [address]495 09/18/2024 2:00 PM CDT Virtual Visit [facility] [place] [address] 105 [place] [phone] Shanna Vang PA-C [address] [place] [address] 03/29/2025 3:40 PM CDT Office Visit [address] [phone] Alfreda Ray PA-C [address] [place] [address] [phone] documented as of this encounter Visit Diagnoses Diagnosis Osteoarthritis- Primary Osteoarthrosis, unspecified whether generalized or localized, unspecified site documented in this encounter Additional Health Concerns Infection Onset Date Last Indicated Resolved Time Rule Out COVID-19 05/08/2021 05/08/2021 05/09/2021 9:08 PM AIR DEFENSE SPECIALIST documented as of this encounter Care Teams Bundler Relationship Specialty Start Date End Date Esperanza Gatica MD PCP - General Family Practice 10/13/11 12/29/21 [place] [address] LISBETH GARCIA [address] PCP - Assigned PCP 12/05/17 08/23/18 Alfreda Ray PA-C [address] [place] [address]22 PCP - General Family Medicine 12/30/21 [place] [address] LISB[address] GARCIA [address] Assigned PCP 12/05/17 09/30/19 [place] [address] L[address] GARCIA [address] Assigned PCP 10/01/19 03/02/20 [place] [address] [address] GARCIA 03538 Assigned PCP 03/03/20 05/25/20 [place] [address] LIS[address] GARCIA [address] Assigned PCP 05/26/20 09/28/20 [place] [address] [address] GARCIA [address]4280 Assigned PCP 09/29/20 07/31/22 Jesú[place] [address] [address] Assigned Musculoskeletal Provider 10/20/20 04/17/22 Alfreda Ray PA-C [address] [place] [address] 194452 Referring Physician Family Medicine 12/31/21 Katrin Orellana PA-C [address] [place] [address]38 Physician Package Lift Operator Dermatology 12/31/21 Shanna Vang PA-C [address] [place] [address] 784264 Assigned Cancer Care Provider 01/10/22 Fransisco Eddy MD [address] [place] [address] 804565 Assigned Rheumatology Provider 05/09/22 [place] [address] [address]IS[address] GARCIA [address]326 Assigned Pain Medication Provider 06/29/22 09/04/22 [place] [address] LISB[address] GARCIA [address] Assigned PCP 08/15/22 08/28/22 Katrin Orellana PA-C [address] [place] [address]79 Assigned Surgical Provider 08/15/22 02/10/24 Cristina Hsieh [facility] [address] [place] [address] LISBETH HERNANDEZ [address] Pharmacist Pharmacist 09/07/22 Alfreda Ray PA-C [address] [place] [address]2948 Assigned Pain Medication Provider 09/05/22 09/10/23 Alfreda Ray PA-C [address] [place] [address] 786492 Assigned PCP 08/29/22 Cristina Hsieh [facility] [address] [place] [address] 09884 Assigned MTM Pharmacist 09/26/22 Dakota Tatum MD [address] [place] [address]25 Cardiovascular Disease 03/25/23 Dakota Tatum MD [address] [place] [address] 57162 Assigned Heart and Vascular Provider 05/01/23 [place] [address] [address] Assigned Musculoskeletal Provider 04/12/24 documented as of this encounter
--- OUTSIDE RECORDS SUMMARY | 2024-07-28 12:38 | XMS_ITS | Encounter Summary ---
Author Organization [place] Address [address] [place] [address] Care Team Providers Care Lead Housekeeper Name Role Phone Esperanza Gatica MD Primary Care Provider + Esperanza Gatica MD Unavailable +[phone] Esperanza Gatica MD Unavailable +[phone] Esperanza Gatica MD Unavailable +527 Esperanza Gatica MD Unavailable +596 Esperanza Gatica MD Unavailable +069 Esperanza Gatica MD Unavailable +[phone] Jesús Orourke MD Unavailable Alfreda RayC Primary Care Provider + Alfreda Ray PA-C Unavailable + [phone] Katrin Orellana PA-C Unavailable [phone] Shanna VangC Unavailable +[phone] Fransisco Eddy MD Unavailable +[phone] Esperanza Gatica MD Unavailable +[phone] Esperanza Gatica MD Unavailable +[phone] Katrin Orellana PA-C Unavailable [phone] Cristina Hsieh [facility] Unavailable CoryAlfreda PA-C Unavailable +[phone] Ho Raymustapha Liu PA-C Unavailable +[phone] Cristina Hsieh [facility] Unavailable Dakota Tatum MD Unavailable Dakota Tatum MD Unavailable [phone] Srinivas Marie DO Unavailable [phone] Reason for Visit * Reason Onset Date Comments Refill Request 11/25/2012 tramadol 50 MG Encounter Details Date Type Department Care Team (Late st Contact Info) Description 11/25/2012 MyC Refill [address] [address] [place] [address] [place] [address] Refill Request (tramadol 50 MG) Social History Tobacco Use Types Packs/Day Years Used Date Smoking Tobacco: Former Cigarettes Q uit: 06/21/1973 Smokeless Tobacco: Former Alcohol Use Standard Drinks/Week Comments Yes 0 (1 standard drink = 0.6 oz pur e alcohol) rarely Comments No Sex and Gender Information Value Date Recorded Sex Assigned at Female 08/17/2018 7:56 AM FINANCIAL ADVISOR TRAINEE Legal Sex Female 4:24 AM FINANCIAL ADVISOR TRAINEE Gender Identity Female 08/17/2018 7:56 AM FINANCIAL ADVISOR TRAINEE Sexual Orientation Straight 08/17/2018 7: 56 AM FINANCIAL ADVISOR TRAINEE documented as of this encounter Miscellaneous Notes * Telephone Encounter - Diane Macedo - 11/25/2012 9:48 AM CDT Does not meet standard requirement for RN refill protocol. Medication: tramadol 50 MG Last OV: 11/08/12 Reason for visit: Osteoarthritis Last refill: 10/28/12 #30 Please refill if appropriate. Thank you! Diane Macedo RN [facility] * Telephone Encounter - Diane Macedo - 11/25/2012 9:47 AM CDTMessage from [facility]: Original authorizing provider: MD Alexandria Brannon would like a refill of the following medications: traMADol (ULTRAM) 50 MG tablet [Esperanza Gatica MD] Preferred pharmacy: [id number] Comment: Sent from my MEDArchonhone documented in this encounter Plan of Treatment Upcoming Encounters Date Type Department Care Team (Late st Contact Info) Description 09/07/2024 10:00 AM CDT Office Visit [facility] [address] [phone] Fransisco Eddy MD [address] [place] [address] 358225 09/18/2024 2:00 PM CDT Virtual Visit [facility] [address] [place] [address] 105 [place] [phone] Shanna Vang PA-C [address] [place] [address] 03/29/2025 3:40 PM CDT Office Visit [address] [phone] Alfreda Ray PA-C [address] [place] [address] 681112 documented as of this encounter Visit Diagnoses Diagnosis Knee pain Pain in joint, lower leg documented in this encounter Additional Health Concerns Infection Onset Date Last Indicated Resolved Time Rule Out COVID-19 05/08/2021 05/08/2021 05/09/2021 9:08 PM FINANCIAL ADVISOR TRAINEE documented as of this encounter Care Teams Lead Housekeeper Relationship Specialty Start Date End Date Esperanza Gatica MD PCP - General Family Practice 10/13/11 12/29/21 [place] [address] LISBETH GARCIA [address] PCP - Assigned PCP 12/05/17 08/23/18 Alfreda Ray PA-C [address] [place] [address]27 PCP - General Family Medicine 12/30/21 [place] [address] [address] GARCIA [address] Assigned PCP 12/05/17 09/30/19 [place] [address] LISB[address] GARCIA [address]30 Assigned PCP 10/01/19 03/02/20 [place] [address] [address] GARCIA 66429 Assigned PCP 03/03/20 05/25/20 [place] [address] LIS[address] GARCIA [address]36[address] Assigned PCP 05/26/20 09/28/20 [place] [address] [address] GARCIA [address]63 Assigned PCP 09/29/20 07/31/22 [place] [address] [address] Assigned Musculoskeletal Provider 10/20/20 04/17/22 Alfreda Ray PA-C [address] [place] [address] [phone] Referring Physician Family Medicine 12/31/21 Katrin Orellana PA-C [address] [place] [address] 085355 Physician Autobody Technician Dermatology 12/31/21 Shanna Vang PA-C [address] [place] [address] 699974 Assigned Cancer Care Provider 01/10/22 Fransisco Eddy MD [address] [place] [address] 517165 Assigned Rheumatology Provider 05/09/22 [place] [address] LISBETH GARCIA [address]956 Assigned Pain Medication Provider 06/29/22 09/04/22 [place] [address] LISB[address] GARCIA [address] Assigned PCP 08/15/22 08/28/22 Katrin Orellana PA-C [address] [place] [address] 992545 Assigned Surgical Provider 08/15/22 02/10/24 Cristina Hsieh [facility] [address] [facility] LISBETH HERNANDEZ [address] Pharmacist Pharmacist 09/07/22 Alfreda Ray PA-C [address] [place] [address] 080902 Assigned Pain Medication Provider 09/05/22 09/10/23 Alfreda Ray PA-C [address] [place] [address] Assigned PCP 08/29/22 Cristina Hsieh [facility] [address] [place] [address] Assigned MTM Pharmacist 09/26/22 Dakota Tatum MD [address] [place] [address] Cardiovascular Disease 03/25/23 Dakota Tatum MD [address] [place] [address] 483475 Assigned Heart and Vascular Provider 05/01/23 [place] [address] [address] Assigned Musculoskeletal Provider 04/12/24 documented as of this encounter
--- OUTSIDE RECORDS SUMMARY | 2024-07-28 12:38 | XMS_ITS | Encounter Summary ---
Author Organization [place] Address [address] [place] [address]20 Care Team Providers Care Department Helper Name Role Phone Esperanza Gatica MD Primary Care Provider + Esperanza Gatica MD Unavailable +[phone] Esperanza Gatica MD Unavailable +[phone] Esperanza Gatica MD Unavailable +[phone] Esperanza Gatica MD Unavailable +559 Esperanza Gatica MD Unavailable +843 Esperanza Gatica MD Unavailable +[phone] Jesús Orourke MD Unavailable Alfreda RayC Primary Care Provider + Alfreda Ray PA-C Unavailable + [phone] Katrin Orellana PA-C Unavailable [phone] Shanna VangC Unavailable +[phone] Fransisco Eddy MD Unavailable [phone] Esperanza Gatica MD Unavailable +[phone] Esperanza Gatica MD Unavailable +[phone] Katrin Orellana PA-C Unavailable Cristina Hsieh [facility] Unavailable Cory Alfreda Liu PA-C Unavailable +[phone] Ho Raymustapha Liu PA-C Unavailable [phone] Cristina Hsieh [facility] Unavailable +[phone] Dakota Tatum MD Unavailable [phone] Dakota Tatum MD Unavailable [phone] Srinivas Marie DO Unavailable [phone] Reason for Visit * Reason Onset Date Comments Refill Request 12/11/2012 Trazodone 50mg Encounter Details Date Type Department Care Team (Late st Contact Info) Description 12/11/2012 MyC Refill [address], [address] [place] [address] [place] [address] [place] [address] Refill Request (Trazodone 50mg) Social History Tobacco Use Types Packs/Day Years Used Date Smoking Tobacco: Former Cigarettes Q uit: 06/21/1973 Smokeless Tobacco: Former Alcohol Use Standard Drinks/Week Comments Yes 0 (1 standard drink = 0.6 oz pur e alcohol) rarely Comments No Sex and Gender Information Value Date Recorded Sex Assigned at Female 08/17/2018 7:56 AM RESULTS TECHNICIAN Legal Sex Female 4:24 AM RESULTS TECHNICIAN Gender Identity Female 08/17/2018 7:56 AM RESULTS TECHNICIAN Sexual Orientation Straight 08/17/2018 7: 56 AM RESULTS TECHNICIAN documented as of this encounter Miscellaneous [...] Preferred pharmacy: [id number] Comment: documented in this encounter Plan of Treatment Upcoming Encounters Date Type Department Care Team (Late st Contact Info) Description 09/07/2024 10:00 AM CDT Office Visit [facility] [address] [place] [phone] Fransisco Eddy MD [address] [place] [address] 88 [place] [address] 09/18/2024 2:00 PM CDT Virtual Visit [facility] [address] [place] [address] 105 [place] [address] Shanna Vang, PARobinson [address] [place] [address] 03/29/2025 3:40 PM CDT Office Visit [address] [place] [phone] Alfreda Ray PA-C [address] [place] [address] 730342 documented as of this encounter Visit Diagnoses Diagnosis Insomnia, unspecified- Primary documented in this encounter Additional Health Concerns Infection Onset Date Last Indicated Resolved Time Rule Out COVID-19 05/08/2021 05/08/2021 05/09/2021 9:08 PM RESULTS TECHNICIAN documented as of this encounter Care Teams Department Helper Relationship Specialty Start Date End Date Esperanza Gatica MD PCP - General Family Practice 10/13/11 12/29/21 [place] [address] [place] [address] PCP - Assigned PCP 12/05/17 08/23/18 Alfreda Ray PA-C [address] [place] [address] PCP - General Family Medicine 12/30/21 [place] [address] [place] [address] Assigned PCP 12/05/17 09/30/19 [place] [address] [place] [address] Assigned PCP 10/01/19 03/02/20 [place] [address] [place] [address] Assigned PCP 03/03/20 05/25/20 [place] [address] [place] [address] Assigned PCP 05/26/20 09/28/20 [place] [address] [place] [address] Assigned PCP 09/29/20 07/31/22 Jesú[place] [address] [facility] [place] [address] Assigned Musculoskeletal Provider 10/20/20 04/17/22 Alfreda Ray PA-C [address] [place] [address] 871402 Referring Physician Family Medicine 12/31/21 Katrin Orellana PA-C [address] [place] [address] 555225 Physician Tapering Machine Operator Dermatology 12/31/21 Shanna Vang PA-C [address] 564594 Assigned Cancer Care Provider 01/10/22 Fransisco Eddy MD [address] [place] [address] 534385 Assigned Rheumatology Provider 05/09/22 [place] [address] [address]ISB[address] GARCIA [address]6552 Assigned Pain Medication Provider 06/29/22 09/04/22 [place] [address] LISB[address] GARCIA [address] Assigned PCP 08/15/22 08/28/22 Katrin Orellana PA-C [address] [place] [address] 215745 Assigned Surgical Provider 08/15/22 02/10/24 Cristina Hsieh [facility] [address] [facility] LISBETH HERNANDEZ [address] Pharmacist Pharmacist 09/07/22 Alfreda Ray PA-C [address] [place] [address] 334502 Assigned Pain Medication Provider 09/05/22 09/10/23 Alfreda Ray PA-C [address] [place] [address] 504452 Assigned PCP 08/29/22 Cristina Hsieh [facility] [address] [place] [address] 14651 Assigned MTM Pharmacist 09/26/22 Dakota Tatum MD [address] [place] [address] 48814 Cardiovascular Disease 03/25/23 Dakota Tatum MD [address] [place] [address] 29150 Assigned Heart and Vascular Provider 05/01/23 [place] [address] [place] , [address] [address] Assigned Musculoskeletal Provider 04/12/24 documented as of this encounter
--- OUTSIDE RECORDS SUMMARY | 2024-07-28 12:38 | XMS_ITS | Encounter Summary ---
Author Organization [facility] Address [address] [place] [address] Care Team Providers Care Corn Grinder Name Role Phone Esperanza Gatica MD Primary Care Provider + Esperanza Gatica MD Unavailable +[phone] Esperanza Gatica MD Unavailable +[phone] Esperanza Gatica MD Unavailable +[phone] Esperanza Gatica MD Unavailable +[phone] Esperanza Gatica MD Unavailable +[phone] Esperanza Gatica MD Unavailable +[phone] Jesús Orourke MD Unavailable Alfreda RayC Primary Care Provider + Alfreda Ray PA-C Unavailable + [phone] Katrin Orellana PA-C Unavailable +[phone] Shanna VangC Unavailable +[phone] Fransisco Eddy MD Unavailable +[phone] Esperanza Gatica MD Unavailable +[phone] Esperanza Gatica MD Unavailable +[phone] Katrin Orellana PA-C Unavailable +[phone] Cristina Hsieh [facility] Unavailable +[phone] Ray, Alfreda Liu PA-C Unavailable +[phone] Cory Alfreda Liu PA-C Unavailable +[phone] Cristina Hsieh [facility] Unavailable +[phone] Dakota Tatum MD Unavailable Dakota Tatum MD Unavailable Srinivas Marie DO Unavailable [phone] Reason for Visit * Reason Onset Date Comments Refill Request 06/24/2013 Lisinopril-HCTZ Encounter Details Date Type Department Care Team (Late st Contact Info) Description 06/24/2013 MyC Refill [address], [address] [place] [address] [place] [address] [place] [address] Refill Request (Lisinopril-HCTZ) Social History Tobacco Use Types Packs/Day Years Used Date Smoking Tobacco: Former Cigarettes Q uit: 06/21/1973 Smokeless Tobacco: Former Alcohol Use Standard Drinks/Week Comments Yes 0 (1 standard drink = 0.6 oz pur e alcohol) rarely Comments No Sex and Gender Information Value Date Recorded Sex Assigned at Female 08/17/2018 7:56 AM SHOES HAND SEWER Legal Sex Female 4:24 AM SHOES HAND SEWER Gender Identity Female 08/17/2018 7:56 AM SHOES HAND SEWER Sexual Orientation Straight 08/17/2018 7: 56 AM SHOES HAND SEWER documented as of this encounter Miscellaneous Notes [...] Will route to provider. Leigha Rinaldi RN S HAND SEWER * Telephone Encounter - Leigha Rinaldi - 06/26/2013 7:59 AM [facility]Message [facility] Original authorizing provider: Esperanza Gatica MD Alexandria Bradshaw would like a refill of the following medications: lisinopril-hydrochlorothiazide (PRINZIDE,ZESTORETIC) 10-12.5 MG per tablet [Esperanza Gatica MD] Preferred pharmacy: [id number] [address] Comment: Sent from my iPadI called this in to the pharmacy but it hasn't been filled. I take the last one onWednesday (6th). S HAND SEWER documented in this encounter Plan of Treatment Upcoming Encounters Date Type Department Care Team (Late st Contact Info) Description 09/07/2024 10:00 AM CDT Office Visit [facility] [address] [place] [address] Fransisco Eddy MD [address] [place] [address] 88 [place], [place] [phone] 09/18/2024 2:00 PM CDT Virtual Visit [facility] [place] [address] 105 [place] [address] Shanna Vang PA-C [address] [place] [address] 03/29/2025 3:40 PM CDT Office Visit [address] [place] [phone] Alfreda Ray PA-C [address] [place] [address] 726672 documented as of this encounter Visit Diagnoses Diagnosis HTN (hypertension), benign Essential hypertension, benign documented in this encounter Additional Health Concerns Infection Onset Date Last Indicated Resolved Time Rule Out COVID-19 05/08/2021 05/08/2021 05/09/2021 9:08 PM SHOES HAND SEWER documented as of this encounter Care Teams Corn Grinder Relationship Specialty Start Date End Date Esperanza Gatica MD PCP - General Family Practice 10/13/11 12/29/21 [place] [address] LISBETH GARCIA [address] PCP - Assigned PCP 12/05/17 08/23/18 Alfreda Ray PA-C [address] [place] [address] PCP - General Family Medicine 12/30/21 [place] [address] LISBETH GARCIA [address] Assigned PCP 12/05/17 09/30/19 [place] [address] L[place] GARCIA [address]5826 Assigned PCP 10/01/19 03/02/20 [place] [address] [place] GARCIA [address] Assigned PCP 03/03/20 05/25/20 [place] [address] L[place] GARCIA [address] Assigned PCP 05/26/20 09/28/20 [place] [address] [place] [address] Assigned PCP 09/29/20 07/31/22 Jesú[place] [address] [place] [address] Assigned Musculoskeletal Provider 10/20/20 04/17/22 Alfreda Ray PA-C [address] [place] [address] [phone] Referring Physician Family Medicine 12/31/21 Katrin Orellana PA-C [address] [place] [address] [phone] Physician Saw Operator Dermatology 12/31/21 Shanna Vang PA-C [address] [address] Assigned Cancer Care Provider 01/10/22 Fransisco Eddy MD [address] [place] [address] [phone] Assigned Rheumatology Provider 05/09/22 [place] [address] [place] [address] Assigned Pain Medication Provider 06/29/22 09/04/22 [place] [address] [place] [address] Assigned PCP 08/15/22 08/28/22 Katrin Orellana PA-C [address] [place] [address] 785565 Assigned Surgical Provider 08/15/22 02/10/24 Cristina Hsieh R[facility] [address] [facility] [address] Pharmacist Pharmacist 09/07/22 Alfreda Ray PA-C [address] [place] [address] [phone] Assigned Pain Medication Provider 09/05/22 09/10/23 Alfreda Ray PA-C [address] [place] [address] 587862 Assigned PCP 08/29/22 Cristina Hsieh [address] [place] [address] Assigned MTM Pharmacist 09/26/22 Dakota Tatum MD [address] [place] [address] [phone] Cardiovascular Disease 03/25/23 Dakota Tatum MD [address] [place] [address] [phone] Assigned Heart and Vascular Provider 05/01/23 [place] [address] [place] , [facility] [address] [place] [address] Assigned Musculoskeletal Provider 04/12/24 documented as of this encounter
--- OUTSIDE RECORDS SUMMARY | 2024-07-28 12:39 | XMS_ITS | Encounter Summary ---
Author Organization [facility] Address [address] [place] [address] Care Team Providers Care Bakery Sales Clerk Name Role Phone Esperanza Gatica MD Primary Care Provider + Esperanza Gatica MD Unavailable +[phone] Esperanza Gatica MD Unavailable +[phone] Esperanza Gatica MD Unavailable +[phone] Esperanza Gatica MD Unavailable +[phone] Esperanza Gatica MD Unavailable +[phone] Esperanza Gatica MD Unavailable +[phone] Jesús Orourke MD Unavailable Alfreda RayC Primary Care Provider + Alfreda Ray PA-C Unavailable + [phone] Katrin Orellana PA-C Unavailable [phone] Shanna VangC Unavailable +[phone] Fransisco Eddy MD Unavailable [phone] Esperanza Gatica MD Unavailable +[phone] Esperanza Gatica MD Unavailable +[phone] Katrin Orellana PA-C Unavailable Cristina Hsieh [facility] Unavailable RayAlfreda PA-C Unavailable +[phone] Cory Alfreda Liu PA-C Unavailable +[phone] Cristina Hsieh [facility] Unavailable [phone] Dakota Tatum MD Unavailable [phone] Dakota Tatum MD Unavailable [phone] Srinivas Marie DO Unavailable [phone] Reason for Visit * Reason Onset Date Comments Refill Request 06/17/2014 Celebrex, Lisino pril/HCTZ Encounter Details Date Type Department Care Team (Late st Contact Info) Description 06/17/2014 MyC Medical Advice [address], [address] [place] [address] [place] [address] [place] [address] Refill Request (Celebrex, Lisinopril/HCTZ) Social History Tobacco Use Types Packs/Day Years Used Date Smoking Tobacco: Former Cigarettes Q uit: 06/21/1973 Smokeless Tobacco: Former Alcohol Use Standard Drinks/Week Comments Yes 0 (1 standard drink = 0.6 oz pur e alcohol) rarely Comments No Sex and Gender Information Value Date Recorded Sex Assigned at Female 08/17/2018 7:56 AM SPEECH LANGUAGE PATHOLOGIST TRAVEL Legal Sex Female 4:24 AM SPEECH LANGUAGE PATHOLOGIST TRAVEL Gender Identity Female 08/17/2018 7:56 AM SPEECH LANGUAGE PATHOLOGIST TRAVEL Sexual Orientation Straight 08/17/2018 7: 56 AM SPEECH LANGUAGE PATHOLOGIST TRAVEL documented as of this encounter Miscellaneous Notes [...] Will route to provider. Leigha Rinaldi RN CH LANGUAGE PATHOLOGIST TRAVEL documented in this encounter Plan of Treatment Upcoming Encounters Date Type Department Care Team (Late st Contact Info) Description 09/07/2024 10:00 AM CDT Office Visit [facility] [address] 200 [place] [phone] Fransisco Eddy MD [address] [place] [address] 88 [place], [place] 38[address] 09/18/2024 2:00 PM CDT Virtual Visit [facility] [place] [address] 105 [place] [address] Shanna Vang PA-C [address] [place] [address] 03/29/2025 3:40 PM CDT Office Visit [address] [place] [phone] Alfreda Ray PA-C [address] [place] [address] [phone] documented as of this encounter Visit Diagnoses Diagnosis HTN (hypertension), benign- Primary Essential hypertension, benign Osteoarthritis Osteoarthrosis, unspecified whether generalized or localized, unspecified site documented in this encounter Additional Health Concerns Infection Onset Date Last Indicated Resolved Time Rule Out COVID-19 05/08/2021 05/08/2021 05/09/2021 9:08 PM SPEECH LANGUAGE PATHOLOGIST TRAVEL documented as of this encounter Care Teams Bakery Sales Clerk Relationship Specialty Start Date End Date Esperanza Gatica MD PCP - General Family Practice 10/13/11 12/29/21 [place] [address] LISBETH GARCIA [address] PCP - Assigned PCP 12/05/17 08/23/18 Alfreda Ray PA-C [address] [place] [address] PCP - General Family Medicine 12/30/21 [place] [address] LISBETH GARCIA [address] Assigned PCP 12/05/17 09/30/19 [place] [address] LISBETH GARCIA 72090 Assigned PCP 10/01/19 03/02/20 [place] [address] LISB[place] GARCIA 58591 Assigned PCP 03/03/20 05/25/20 [place] [address] LISB[place] GARCIA [address]82[address] Assigned PCP 05/26/20 09/28/20 [place] [address] LISBETH GARCIA [address]33[address] Assigned PCP 09/29/20 07/31/22 Jesú[place] [address] [place] [address] 368517 Assigned Musculoskeletal Provider 10/20/20 04/17/22 Alfreda Ray PA-C [address] [place] [address] [phone] Referring Physician Family Medicine 12/31/21 Katrin Orellana PA-C [address] [place] [address] 568375 Physician Ip Network Architect Dermatology 12/31/21 Shanna Vang PA-C [address] [place] [address] 438374 Assigned Cancer Care Provider 01/10/22 Fransisco Eddy MD [address] [place] [address] 545275 Assigned Rheumatology Provider 05/09/22 [place] [address] LISBETH GARCIA [address] Assigned Pain Medication Provider 06/29/22 09/04/22 [place] [address] LISBETH GARCIA [address]807 Assigned PCP 08/15/22 08/28/22 Katrin Orellana PA-C [address] [place] [address] 720345 Assigned Surgical Provider 08/15/22 02/10/24 Cristina Hsieh, [facility] [address] [facility] LISBETH HERNANDEZ [address] Pharmacist Pharmacist 09/07/22 Alfreda Ray PA-C [address] [place] [address]91 Assigned Pain Medication Provider 09/05/22 09/10/23 Alfreda Ray PA-C [address] [place] [address] Assigned PCP 08/29/22 Cristina Hsieh [facility] [address] [place] [address] Assigned MTM Pharmacist 09/26/22 Dakota Tatum MD [address] [place] [address] Cardiovascular Disease 03/25/23 Dakota Tatum MD [address] [place] [address] Assigned Heart and Vascular Provider 05/01/23 [place] [address] [place] , [address] [address] Assigned Musculoskeletal Provider 04/12/24 documented as of this encounter
--- OUTSIDE RECORDS SUMMARY | 2024-07-28 12:39 | XMS_ITS | Encounter Summary ---
Author Organization [facility] Address [address] [place] [address] Care Team Providers Care Tree Trimming Line Technician Name Role Phone Esperanza Gatica MD Primary Care Provider + Esperanza Gatica MD Unavailable +[phone] Esperanza Gtaica MD Unavailable +[phone] Esperanza Gatica MD Unavailable +[phone] Esperanza Gatica MD Unavailable +[phone] Esperanza Gatica MD Unavailable +[phone] Esperanza Gatica MD Unavailable +[phone] Jesús Orourke MD Unavailable Alfreda RayC Primary Care Provider + Alfreda Ray PA-C Unavailable + [phone] Katrin Orellana PA-C Unavailable [phone] Shanna VangC Unavailable +[phone] Fransisco Eddy MD Unavailable +[phone] Esperanza Gatica MD Unavailable +[phone] Esperanza Gatica MD Unavailable +[phone] Katrin Orellana PA-C Unavailable [phone] Cristina Hsieh [facility] Unavailable Cory Alfreda Liu PA-C Unavailable +[phone] Alfreda Ray Alexa KING Unavailable +[phone] Cristina Hsieh [facility] Unavailable [phone] Dakota Tatum MD Unavailable Dakota Tatum MD Unavailable [phone] Srinivas Marie DO Unavailable [phone] Reason for Visit * Reason Onset Date Comments Refill Request 09/22/2012 Ultram 50mg Encounter Details Date Type Department Care Team (Late st Contact Info) Description 09/22/2012 MyC Refill [address], [facility] [address] [place] [address] [place] [address] [place] [address] Refill Request (Ultram 50mg) Social History Tobacco Use Types Packs/Day Years Used Date Smoking Tobacco: Former Cigarettes Q uit: 06/21/1973 Smokeless Tobacco: Former Alcohol Use Standard Drinks/Week Comments Yes 0 (1 standard drink = 0.6 oz pur e alcohol) rarely Comments No Sex and Gender Information Value Date Recorded Sex Assigned at Female 08/17/2018 7:56 AM GENERAL PRODUCTION LABORER Legal Sex Female 4:24 AM GENERAL PRODUCTION LABORER Gender Identity Female 08/17/2018 7:56 AM GENERAL PRODUCTION LABORER Sexual Orientation Straight 08/17/2018 7: 56 AM GENERAL PRODUCTION LABORER documented as of this encounter Miscellaneous Notes * Telephone Encounter - Leigha Rinaldi - 09/22/2012 9:13 AM CDT Med: Ultram 50mg Last OV: 06/23/2012 Reason: Insomnia Last filled: 05/30/2012 #90 Leigha Rinaldi RN * Telephone Encounter - Leigha Rinaldi - 09/22/2012 9:13 AM CDTMessage from MyChart: Original authorizing provider: MD Sadia Brannonara Zenobia Bradshaw would like a refill of the following medications: traMADol (ULTRAM) 50 MG tablet [Esperanza Gatica MD] Preferred pharmacy: [id number] - [address] Comment: documented in this encounter Plan of Treatment Upcoming Encounters Date Type Department Care Team (Late st Contact Info) Description 09/07/2024 10:00 AM CDT Office Visit [facility] [address] [place] [address] Fransisco Eddy MD [address] [place] [address] 88 [place] [address] 09/18/2024 2:00 PM CDT Virtual Visit [facility] [address] [place] [address] 105 [place] [address] Shanna Vang, PARobinson [address] [place] [address] 674844 03/29/2025 3:40 PM CDT Office Visit [address] [phone] Alfreda Ray PA-C [address] [place] [address] 466002 documented as of this encounter Visit Diagnoses Diagnosis Knee pain Pain in joint, lower leg documented in this encounter Additional Health Concerns Infection Onset Date Last Indicated Resolved Time Rule Out COVID-19 05/08/2021 05/08/2021 05/09/2021 9:08 PM GENERAL PRODUCTION LABORER documented as of this encounter Care Teams Tree Trimming Line Technician Relationship Specialty Start Date End Date Esperanza Gatica MD PCP - General Family Practice 10/13/11 12/29/21 [place] [address] [place] [address] PCP - Assigned PCP 12/05/17 08/23/18 Alfreda Ray PA-C [address] [place] [address] PCP - General Family Medicine 12/30/21 [place] [address] [place], LISBETH [address] Assigned PCP 12/05/17 09/30/19 [place] [address] [place], LISBETH [address] Assigned PCP 10/01/19 03/02/20 [place] [address] [place], LISBETH [address] Assigned PCP 03/03/20 05/25/20 [place] [address] [place] [address] Assigned PCP 05/26/20 09/28/20 [place] [address] LISBETH GARCIA [address] Assigned PCP 09/29/20 07/31/22 [place] [address] [place] GALAN [address] Assigned Musculoskeletal Provider 10/20/20 04/17/22 Alfreda Ray PA-C [address] [place] [address] 897462 Referring Physician Family Medicine 12/31/21 Katrin Orellana PA-C [address] [place] [address] 837205 Physician Statistical Programmer Dermatology 12/31/21 Shanna Vang PA-C [address] [place] [address] 618984 Assigned Cancer Care Provider 01/10/22 Fransisco Eddy MD [address] [place] [address] [phone] Assigned Rheumatology Provider 05/09/22 [place] [address] [facility] [place], [place] 9[address] Assigned Pain Medication Provider 06/29/22 09/04/22 [place] [address] [facility] [place] [place] [address] Assigned PCP 08/15/22 08/28/22 Katrin Orellana PA-C [address] [place] [address] 644165 Assigned Surgical Provider 08/15/22 02/10/24 Cristina Hsieh [facility] [address] [facility] LISBETH HERNANDEZ [address] Pharmacist Pharmacist 09/07/22 Alfreda Ray PA-C [address] [place] [address] Assigned Pain Medication Provider 09/05/22 09/10/23 Alfreda Ray PA-C [address] [place] [address] Assigned PCP 08/29/22 Cristina Hsieh, [facility] [address] [place] [address] Assigned MTM Pharmacist 09/26/22 Dakota Tatum MD [address] [place] [address] Cardiovascular Disease 03/25/23 Dakota Tatum MD [address] [place] [address] Assigned Heart and Vascular Provider 05/01/23 [place] [address] [place] [place], [address] [address] Assigned Musculoskeletal Provider 04/12/24 documented as of this encounter
--- OUTSIDE RECORDS SUMMARY | 2024-07-28 12:39 | XMS_ITS | Encounter Summary ---
Author Organization [facility] Address [address] [place] [address] Care Team Providers Care Billboard Mechanic Name Role Phone Esperanza Gatica MD Primary Care Provider + Esperanza Gatica MD Unavailable +[phone] Esperanza Gatica MD Unavailable +[phone] Esperanza Gatica MD Unavailable +357 Esperanza Gatica MD Unavailable +[phone] Esperanza Gatica MD Unavailable +337 Esperanza Gatica MD Unavailable +[phone] Jesús Orourke MD Unavailable Alfreda RayC Primary Care Provider + Alfreda Ray PA-C Unavailable + [phone] aKtrin Orellana PA-C Unavailable +[phone] Shanna VangC Unavailable +[phone] Fransisco Eddy MD Unavailable +[phone] Esperanza Gatica MD Unavailable +[phone] Esperanza Gatica MD Unavailable +[phone] Katrin Orellana PA-C Unavailable Cristina Hsieh [facility] Unavailable Cory Alfreda Liu PA-C Unavailable +[phone] Ho Raymustapha Liu PA-C Unavailable +[phone] Cristina Hsieh [facility] Unavailable +[phone] Dakota Tatum MD Unavailable +[phone] Dakota Tatum MD Unavailable +[phone] Srinivas Marie DO Unavailable [phone] Reason for Visit * Reason Onset Date Comments Medication Question 05/09/2014 Ambien and H ydrocodone Encounter Details Date Type Department Care Team (Late st Contact Info) Description 05/09/2014 MyC Medical Advice [address], [address] [place] [address] [place] [address] [place] [address] Medication Question (Ambien and Hydrocodone) Social History Tobacco Use Types Packs/Day Years Used Date Smoking Tobacco: Former Cigarettes Q uit: 06/21/1973 Smokeless Tobacco: Former Alcohol Use Standard Drinks/Week Comments Yes 0 (1 standard drink = 0.6 oz pur e alcohol) rarely Comments No Sex and Gender Information Value Date Recorded Sex Assigned at Female 08/17/2018 7:56 AM MATERIAL HAULER Legal Sex Female 4:24 AM MATERIAL HAULER Gender Identity Female 08/17/2018 7:56 AM MATERIAL HAULER Sexual Orientation Straight 08/17/2018 7: 56 AM MATERIAL HAULER documented as of this encounter Miscellaneous Notes * Telephone Encounter - Leigha Rinaldi RN - 06/11/2014 11:53 AM CST RX faxed. Leigha Rinaldi RN RIAL HAULER * Telephone Encounter - Roeyr Brumfield MD - 06/11/2014 11:26 AM MATERIAL HAULER OK, I switched her to 5mg tabs so insurance shouldn't mess with the quantity any more. She should take one full tab when needed. Note that med is NOT intended for nightly use; provided quantity is for one month. Royer Brumfield MD RIAL HAULER * Telephone Encounter - Leigha Rinaldi RN - 06/11/2014 10:48 AM CST Spoke with patient. She only got quantity #15 dispensed on 05/14/2014 so rx only lasted 1 month. (insurance probably dispensed it that way) Patient will run out of med. Please consider refill. Leigha Rinaldi RN RIAL HAULER * Telephone Encounter - Royer Brumfield MD - 06/11/2014 9:01 AM MATERIAL HAULER Ambien filled 05/07/14 was marked as a two month refill. Royer Brumfield MD RIAL HAULER * Telephone Encounter - Leigha Rinaldi RN [...] AMBIEN 03/12/2014 #90 HYDROCODONE Leigha Rinaldi RN RIAL HAULER documented in this encounter Plan of Treatment Upcoming Encounters Date Type Department Care Team (Late st Contact Info) Description 09/07/2024 10:00 AM CDT Office Visit [address] [address] Fransisco Eddy MD [address] [facility] [address] [place] [address] 09/18/2024 2:00 PM CDT Virtual Visit [facility] for [facility] Clot[facility] Disorders [address] [place] [phone] Shanna Vang PA-C [address] [place] [address] 03/29/2025 3:40 PM CDT Office Visit [address] [phone] Alfreda Ray PA-C [address] [place] [address] 928402 documented as of this encounter Visit Diagnoses Diagnosis Osteoarthritis- Primary Osteoarthrosis, unspecified whether generalized or localized, unspecified site INSOMNIA NEC Insomnia, unspecified documented in this encounter Additional Health Concerns Infection Onset Date Last Indicated Resolved Time Rule Out COVID-19 05/08/2021 05/08/2021 05/09/2021 9:08 PM MATERIAL HAULER documented as of this encounter Care Teams Billboard Mechanic Relationship Specialty Start Date End Date Esperanza Gatica MD PCP - General Family Practice 10/13/11 12/29/21 [place] [address] [place] [address] PCP - Assigned PCP 12/05/17 08/23/18 Alfreda Ray PA-C [address] [place] [address]373 PCP - General Family Medicine 12/30/21 [place] [address] [place] GARCIA [address] Assigned PCP 12/05/17 09/30/19 [place] [address] [place] [address] Assigned PCP 10/01/19 03/02/20 [place] [address] [place] [place]IA 15752 Assigned PCP 03/03/20 05/25/20 [place] [address] [address] [place] [address]97[address] Assigned PCP 05/26/20 09/28/20 [place] [address] [place] GARCIA [address] Assigned PCP 09/29/20 07/31/22 Jesú[place] [address] [place], [place] [address] Assigned Musculoskeletal Provider 10/20/20 04/17/22 Alfreda Ray PA-C [address] [place] [address] 017832 Referring Physician Family Medicine 12/31/21 Katrin Orellana PA-C [address] [place] [address] 068385 Physician Marketing Director Dermatology 12/31/21 Shanna Vang PA-C [address] [place] [address] 67957 Assigned Cancer Care Provider 01/10/22 Fransisco Eddy MD [address] [place] [address] 005835 Assigned Rheumatology Provider 05/09/22 [place] [address] [place] [address] Assigned Pain Medication Provider 06/29/22 09/04/22 [place] [address] [place] [address] Assigned PCP 08/15/22 08/28/22 Katrin Orellana PA-C [address] [place] [address] 12974 Assigned Surgical Provider 08/15/22 02/10/24 Cristina Hsieh [facility] [address] [place] [address] [place] [address] Pharmacist Pharmacist 09/07/22 Alfreda Ray PA-C [address] [place] [address] 649742 Assigned Pain Medication Provider 09/05/22 09/10/23 Alfreda Ray PA-C [address] [place] [address] 13521 Assigned PCP 08/29/22 Cristina Hsieh, [facility] [address] [facility] [address] [place] [address] Assigned MTM Pharmacist 09/26/22 Dakota Tatum MD [address] [place] [address] 901155 Cardiovascular Disease 03/25/23 Dakota Tatum MD [address] [place] [address] 879185 Assigned Heart and Vascular Provider 05/01/23 [place] [address] [address], [facility] [address] [place] [address] Assigned Musculoskeletal Provider 04/12/24 documented as of this encounter
--- OUTSIDE RECORDS SUMMARY | 2024-07-28 12:39 | XMS_ITS | Encounter Summary ---
Author Organization [facility] Address [address] [place] [address] Care Team Providers Care Flatcar Whacker Name Role Phone Esperanza Gatica MD Primary Care Provider + Esperanza Gatica MD Unavailable +[phone] Esperanza Gatica MD Unavailable +[phone] Esperanza Gatica MD Unavailable +406 Esperanza Gatica MD Unavailable +[phone] Esperanza Gatica MD Unavailable +070 Esperanza Gatica MD Unavailable +[phone] Jesús Orourke MD Unavailable Alfreda RayC Primary Care Provider + Alfreda Ray PA-C Unavailable + [phone] Katrin Orellana PA-C Unavailable +[phone] Shanna VangC Unavailable +[phone] Fransisco Eddy MD Unavailable +[phone] Esperanza Gatica MD Unavailable +[phone] Esperanza Gatica MD Unavailable +[phone] Katrin Orellana PA-C Unavailable Cristina Hsieh [facility] Unavailable Alfreda Ray PA-C Unavailable [phone] Cory Alfreda Liu PA-C Unavailable [phone] Cristina Hsieh [facility] Unavailable Dakota Tatum MD Unavailable Dakota Tatum MD Unavailable Srinivas Marie DO Unavailable [phone] Encounter Details Date Type Department Care Team (Late st Contact Info) Description 06/29/2014 MyC Medical Advice [address], [facility] [address] [place] [address] Fartun Silveira Social History Tobacco Use Types Packs/Day Years Used Date Smoking Tobacco: Former Cigarettes Q uit: 06/21/1973 Smokeless Tobacco: Former Alcohol Use Standard Drinks/Week Comments Yes 0 (1 standard drink = 0.6 oz pur e alcohol) rarely Comments No Sex and Gender Information Value Date Recorded Sex Assigned at Female 08/17/2018 7:56 AM ROOM CLERK Legal Sex Female 4:24 AM ROOM CLERK Gender Identity Female 08/17/2018 7:56 AM ROOM CLERK Sexual Orientation Straight 08/17/2018 7: 56 AM ROOM CLERK documented as of this encounter Plan of Treatment Upcoming Encounters Date Type Department Care Team (Late st Contact Info) Description 09/07/2024 10:00 AM CDT Office Visit [facility] [address] [address] Fransisco Eddy MD [address] [place] [address] 09/18/2024 2:00 PM CDT Virtual Visit [facility] [place] [address] Shanna Vang PA-C [address] [place] [address] 03/29/2025 3:40 PM CDT Office Visit [address] [address] Alfreda Ray PA-C [address] [place] [address] documented as of this encounter Visit Diagnoses Not on filedocumented in this encounter Additional Health Concerns Infection Onset Date Last Indicated Resolved Time Rule Out COVID-19 05/08/2021 05/08/2021 05/09/2021 9:08 PM ROOM CLERK documented as of this encounter Care Teams Flatcar Whacker Relationship Specialty Start Date End Date Esperanza Gatica MD PCP - General Family Practice 10/13/11 12/29/21 [place] [address] [place] GARCIA [address] PCP - Assigned PCP 12/05/17 08/23/18 Alfreda Ray PA-C [address] [place] [address] PCP - General Family Medicine 12/30/21 [place] [address] [address] GARCIA [address] Assigned PCP 12/05/17 09/30/19 [place] [address] [place] GARCIA [address] Assigned PCP 10/01/19 03/02/20 [place] [address] [place] [address] Assigned PCP 03/03/20 05/25/20 [place] [address] [place] [address] Assigned PCP 05/26/20 09/28/20 [place] [address] [place] [address] Assigned PCP 09/29/20 07/31/22 Jesú[place] [address] [place] [address] Assigned Musculoskeletal Provider 10/20/20 04/17/22 Alfreda Ray PA-C [address] [place] [address] 973872 Referring Physician Family Medicine 12/31/21 Katrin Orellana PA-C [address] [place] [address] 715655 Physician Operations And Maintenance Manager Dermatology 12/31/21 Shanna Vang PA-C [address] [place] [address] 282114 Assigned Cancer Care Provider 01/10/22 Fransisco Eddy MD [address] [place] [address] 391435 Assigned Rheumatology Provider 05/09/22 [place] [address] [place] [address] Assigned Pain Medication Provider 06/29/22 09/04/22 [place] [address] [place] [address] Assigned PCP 08/15/22 08/28/22 Katrin Orellana PA-C [address] [place] [address] 881495 Assigned Surgical Provider 08/15/22 02/10/24 Cristina Hsieh [facility] [address] [facility] L[place]ETH [place]DEZ [address] Pharmacist Pharmacist 09/07/22 Alfreda Ray PA-C [address] [place] [address] 328532 Assigned Pain Medication Provider 09/05/22 09/10/23 Alfreda Ray PA-C [address] [place] [address]71 Assigned PCP 08/29/22 Cristina Hsieh [facility] [address] [phone] Assigned MTM Pharmacist 09/26/22 Dakota Tatum MD 516 [place], [place] 163975 Cardiovascular Disease 03/25/23 Dakota Tatum MD 6 [place] [address] Assigned Heart and Vascular Provider 05/01/23 [place] [address] [address], [address] [address] Assigned Musculoskeletal Provider 04/12/24 documented as of this encounter
--- OUTSIDE RECORDS SUMMARY | 2024-07-28 12:39 | XMS_ITS | Encounter Summary ---
Author Organization [facility] Address [address] [place] [address] Care Team Providers Care Ethnic Origins Teacher Name Role Phone Esperanza Gatica MD Primary Care Provider + Esperanza Gatica MD Unavailable + Esperanza Gatica MD Unavailable + Jesús Orourke MD Unavailable Alfreda Ray-C Primary Care Provider + Alfreda Ray-C Unavailable +[phone] Katrin Orellana PA-C Unavailable +[phone] Shanna Vang PA-C Unavailable +[phone] Fransisco Eddy MD Unavailable +[phone] Esperanza Gatica MD Unavailable + Esperanza Gatica MD Unavailable + Katrin OrellanaC Unavailable +[phone] Cristina Hsieh [facility] Unavailable +[phone] Alfreda Ray PA-C Unavailable +[phone] Alfreda Ray PA-C Unavailable +[phone] Cristina Hsieh [facility] Unavailable +[phone] Dakota Tatum MD Unavailable +[phone] Dakota Tatum MD Unavailable + Cynthia, Srinivas Unavailable +[phone] Encounter Details Date Type Department Care Team (Late Contact Info) Description 08/18/2020 MyC Medical Advice [facility] [address] [place] [address] [place] [address] [place] [address] Primary osteoarthritis involving multiple joints [...] Sex Assigned at Female 08/17/2018 7:56 AM PARKING METER MECHANIC Legal Sex Female 4:24 AM PARKING METER MECHANIC Gender Identity Female 08/17/2018 7:56 AM PARKING METER MECHANIC Sexual Orientation Straight 08/17/2018 7: 56 AM PARKING METER MECHANIC documented as of this encounter Plan of Treatment Upcoming Encounters Date Type Department Care Team (Late Contact Info) Description 09/07/2024 10:00 AM CDT Office Visit [facility] [address] [place] [phone] Fransisco Eddy MD [address] [place] [address] 88 [place], [place] 467565 09/18/2024 2:00 PM CDT Virtual Visit [facility] [place] [address] 105 [place] [phone] Shanna aVng, PA-C [address] [place] [address] 03/29/2025 3:40 PM CDT Office Visit [address] [phone] Alfreda Ray PA-C [address] [place] [address] 203412 documented as of this encounter Visit Diagnoses Diagnosis Primary osteoarthritis involving multiple joints documented in this encounter Additional Health Concerns Infection Onset Date Last Indicated Resolved Time Rule Out COVID-19 05/08/2021 05/08/2021 05/09/2021 9:08 PM PARKING METER MECHANIC Assessment Noted Time PHQ-9 Depression Total Score: 1 08/20/19 1:44 PM PARKING METER MECHANIC documented as of this encounter Care Teams Ethnic Origins Teacher Relationship Specialty Start Date End Date Esperanza Gatica MD PCP - General Family Practice 10/13/11 12/29/21 Alfreda Ray PA-C [address] [place] [address] 094742 PCP - General Family Medicine 12/30/21 [place] [address] [place] GARCIA [address] Assigned PCP 05/26/20 09/28/20 [place] [address] [address] GARCIA [address] Assigned PCP 09/29/20 07/31/22 Jesú[place] [address] [place] [address] Assigned Musculoskeletal Provider 5/2/21 10/28/22 Alfreda Ray PA-C [address] [place] [address] 858132 Referring Physician Family Medicine 12/31/21 Katrin Orellana PA-C [address] [place] [address] 532765 Physician Operations Professional Dermatology 12/31/21 Shanna Vang PA-C [address] [place] [address] [phone] Assigned Cancer Care Provider 01/10/22 Fransisco Eddy MD [address] [place] [address] 010355 Assigned Rheumatology Provider 05/09/22 [place] [address] [place] [id number] Assigned Pain Medication Provider 06/29/22 09/04/22 [place] [address] [place] [address] Assigned PCP 08/15/22 08/28/22 Katrin Orellana PA-C [address] [place] [address] 324715 Assigned Surgical Provider 08/15/22 02/10/24 Cristina Hsieh [facility] [address] [facility] LISBETH HERNANDEZ [phone] Pharmacist Pharmacist 09/07/22 Alfreda Ray PA-C [address] [place] [address] 795442 Assigned Pain Medication Provider 09/05/22 09/10/23 Alfreda Ray PA-C [address] [place] [address] 627162 Assigned PCP 08/29/22 Cristina Hsieh, [facility] [address] [place] [address] Assigned MTM Pharmacist 09/26/22 Dakota Tatum MD [address] [place] [address] 017535 Cardiovascular Disease 03/25/23 Dakota Tatum MD [address] [place] [address] 951605 Assigned Heart and Vascular Provider 05/01/23 [place] [address] [address], [address] [address] Assigned Musculoskeletal Provider 04/12/24 documented as of this encounter
--- OUTSIDE RECORDS SUMMARY | 2024-07-28 12:39 | XMS_ITS | Encounter Summary ---
Author Organization [facility] Address [address] [place] [address] Care Team Providers Care Asset Analyst Name Role Phone Esperanza Gatica MD Primary Care Provider + Esperanza Gatica MD Unavailable +[phone] Esperanza Gatica MD Unavailable +689 Esperanza Gatica MD Unavailable +034 Esperanza Gatica MD Unavailable +248 Esperanza Gatica MD Unavailable +[phone] Esperanza Gatica MD Unavailable +[phone] Jesús Orourke MD Unavailable Alfreda RayC Primary Care Provider + Alfreda Ray PA-C Unavailable + [phone] Katrin Orellana PA-C Unavailable +[phone] Shanna VangC Unavailable +[phone] Fransisco Eddy MD Unavailable +[phone] Esperanza Gatica MD Unavailable +[phone] Esperanza Gatica MD Unavailable +[phone] Katrin Orellana PA-C Unavailable +[phone] Cristina Hsieh [facility] Unavailable Cory Alfreda Liu PA-C Unavailable +[phone] Ho Raymustapha Liu PA-C Unavailable [phone] Cristina Hsieh [facility] Unavailable Dakota Tatum MD Unavailable Dakota Tatum MD Unavailable Srinivas Marie DO Unavailable [phone] Reason for Visit * Reason Onset Date Comments Formulary Issue 11/13/2014 Zolpidem 5mg Encounter Details Date Type Department Care Team (Late st Contact Info) Description 11/13/2014 MyC Medical Advice [place] [id number] [facility] [address] [place] [address] [place] [address] [place] [address] Formulary Issue (Zolpidem 5mg) Social [...] Assigned at Female 08/17/2018 7:56 AM PLASTIC SURGERY SPECIALIST Legal Sex Female 4:24 AM PLASTIC SURGERY SPECIALIST Gender Identity Female 08/17/2018 7:56 AM PLASTIC SURGERY SPECIALIST Sexual Orientation Straight 08/17/2018 7: 56 AM PLASTIC SURGERY SPECIALIST documented as of this encounter Plan of Treatment Upcoming Encounters Date Type Department Care Team (Late st Contact Info) Description 09/07/2024 10:00 AM CDT Office Visit [facility] [address] [place] [address] Fransisco Eddy MD [address] [place] [address] 09/18/2024 2:00 PM CDT Virtual Visit [facility] [address] [facility] [address] [place] [address] Shanna Vang PA-C [address] [place] [address] 03/29/2025 3:40 PM CDT Office Visit [facility] [address] [place] [phone] Alfreda Ray PA-C [address] [place] [address] 178492 documented as of this encounter Visit Diagnoses Not on filedocumented in this encounter Additional Health Concerns Infection Onset Date Last Indicated Resolved Time Rule Out COVID-19 05/08/2021 05/08/2021 05/09/2021 9:08 PM PLASTIC SURGERY SPECIALIST documented as of this encounter Care Teams Asset Analyst Relationship Specialty Start Date End Date Esperanza Gatica MD PCP - General Family Practice 10/13/11 12/29/21 [place] [address] LISB[address] GARCIA [address] PCP - Assigned PCP 12/05/17 08/23/18 Alfreda Ray PA-C [address] [place] [address] 247802 PCP - General Family Medicine 12/30/21 [place] [address] L[place]B[address] GARCIA [address] Assigned PCP 12/05/17 09/30/19 [place] [address] [address] [place] GAFFNEY [address] Assigned PCP 10/01/19 03/02/20 [place] [address] [place] [address] Assigned PCP 03/03/20 05/25/20 [place] [address] LISB[address] GARCIA [address] Assigned PCP 05/26/20 09/28/20 [place] [address] [place] [address] Assigned PCP 09/29/20 07/31/22 Jesú[place] [address] [place] [address] [address] Assigned Musculoskeletal Provider 10/20/20 04/17/22 Alfreda Ray PA-C [address] [place] [address] 449562 Referring Physician Family Medicine 12/31/21 Katrin Orellana PA-C [address] [place] [address] 046795 Physician Accounts Receivable Processor Dermatology 12/31/21 Shanna Vang PA-C [address] [place] [address] 778234 Assigned Cancer Care Provider 01/10/22 Fransisco Eddy MD [address] [place] [address] Assigned Rheumatology Provider 05/09/22 [place] [address] [place] [address] Assigned Pain Medication Provider 06/29/22 09/04/22 [place] [address] [place] [address] Assigned PCP 08/15/22 08/28/22 Katrin Orellana PA-C [address] [place] [address] Assigned Surgical Provider 08/15/22 02/10/24 Cristina Hsieh [facility] [address] [place] [address] [place] [address] Pharmacist Pharmacist 09/07/22 Alfreda Ray PA-C [address] [place] [address] Assigned Pain Medication Provider 09/05/22 09/10/23 Alfreda Ray PA-C [address] [place] [address] 575[address] Assigned PCP 08/29/22 Cristina Hsieh [facility] [address] [address] Assigned MTM Pharmacist 09/26/22 Dakota Tatum MD [address] [place] [address] 19018 Cardiovascular Disease 03/25/23 Dakota Tatum MD [address] [place] [address] 41473 Assigned Heart and Vascular Provider 05/01/23 [place] [address] [address], [address] [address] Assigned Musculoskeletal Provider 04/12/24 documented as of this encounter
--- OUTSIDE RECORDS SUMMARY | 2024-07-28 12:39 | XMS_ITS | Encounter Summary ---
Author Organization [facility] Address [address] [place] [address] 20[address] Care Team Providers Care Grouter Helper Name Role Phone Esperanza Gatica MD Primary Care Provider + Esperanza Gatica MD Unavailable +[phone] Esperanza Gatica MD Unavailable +[phone] Esperanza Gatica MD Unavailable +[phone] Esperanza Gatica MD Unavailable +[phone] Esperanza Gatica MD Unavailable +[phone] Esperanza Gatica MD Unavailable +[phone] Jesús Orourke MD Unavailable Alfreda RayC Primary Care Provider + Alfreda Ray PA-C Unavailable + [phone] Katrin Orellana PA-C Unavailable +[phone] Shanna VangC Unavailable +[phone] Fransisco Eddy MD Unavailable +[phone] Esperanza Gatica MD Unavailable +[phone] Esperanza Gatica MD Unavailable +[phone] Katrin Orellana PA-C Unavailable Cristina Hsieh [facility] Unavailable Cory Alfreda Liu PA-C Unavailable +[phone] Ho Raymustapha Liu PA-C Unavailable +[phone] Cristina Hsieh [facility] Unavailable +[phone] Dakota Tatum MD Unavailable [phone] Dakota Tatum MD Unavailable [phone] Srinivas Marie DO Unavailable [phone] Reason for Visit * Reason Onset Date Comments Refill Request 06/03/2014 Tramadol 50mg Encounter Details Date Type Department Care Team (Late st Contact Info) Description 06/03/2014 MyC Refill [address], [facility] [address] [place] [address] [place] [address] [place] [address] Refill Request (Tramadol 50mg) Social History Tobacco Use Types Packs/Day Years Used Date Smoking Tobacco: Former Cigarettes Q uit: 06/21/1973 Smokeless Tobacco: Former Alcohol Use Standard Drinks/Week Comments Yes 0 (1 standard drink = 0.6 oz pur e alcohol) rarely Comments No Sex and Gender Information Value Date Recorded Sex Assigned at Female 08/17/2018 7:56 AM HEAD OF TALENT MANAGEMENT Legal Sex Female 4:24 AM HEAD OF TALENT MANAGEMENT Gender Identity Female 08/17/2018 7:56 AM HEAD OF TALENT MANAGEMENT Sexual Orientation Straight 08/17/2018 7: 56 AM HEAD OF TALENT MANAGEMENT documented as of this encounter Miscellaneous Notes * Telephone Encounter - Leigha Rinaldi RN - 06/04/2014 1:43 PM CST Pending Prescriptions: Disp Refills traMADol (ULTRAM) 50 MG tablet 30 tab*0 Sig: Take 1 tablet (50 mg) by mouth every 6 hours as needed for pain Last OV: 03/29/2014 Reason: IBS Last filled: 05/07/2014 #30 Leigha Rinaldi RN OF TALENT MANAGEMENT * Telephone Encounter - Leigha Rinaldi RN - 06/04/2014 1:43 PM CSTMessage from MyChart: Original authorizing provider: MD Alexandria Brannon would like a refill of the following medications: traMADol (ULTRAM) 50 MG tablet [Esperanza Gatica MD] Preferred pharmacy: [id number] Comment: OF TALENT MANAGEMENT documented in this encounter Plan of Treatment Upcoming Encounters Date Type Department Care Team (Late st Contact Info) Description 09/07/2024 10:00 AM CDT Office Visit [facility] [address] 200 [place] [phone] Fransisco Eddy MD [address] [place] [address] 88 [place] [address] 09/18/2024 2:00 PM CDT Virtual Visit [facility] [address] [place] [address] 105 [place] [address] Shanna Vang, PARobinson [address] [place] [address] 03/29/2025 3:40 PM CDT Office Visit [address] [place] [phone] Alfreda Ray PA-C [address] [place] [address] [phone] documented as of this encounter Visit Diagnoses Diagnosis HTN (hypertension), benign Essential hypertension, benign documented in this encounter Additional Health Concerns Infection Onset Date Last Indicated Resolved Time Rule Out COVID-19 05/08/2021 05/08/2021 05/09/2021 9:08 PM HEAD OF TALENT MANAGEMENT documented as of this encounter Care Teams Grouter Helper Relationship Specialty Start Date End Date Esperanza Gatica MD PCP - General Family Practice 10/13/11 12/29/21 [place] [address] [place] [address] PCP - Assigned PCP 12/05/17 08/23/18 Alfreda Ray PA-C [address] [place] [address] PCP - General Family Medicine 12/30/21 [place] [address] [place] [address] Assigned PCP 12/05/17 09/30/19 [place] [address] [place] [address] Assigned PCP 10/01/19 03/02/20 [place] [address] [place] [address] Assigned PCP 03/03/20 05/25/20 [place] [address] [place] [address] Assigned PCP 05/26/20 09/28/20 [place] [address] [place] [address] Assigned PCP 09/29/20 07/31/22 Jesú[place] [address] [address] [address] Assigned Musculoskeletal Provider 10/20/20 04/17/22 Alfreda Ray PA-C [address] [place] [address] [phone] Referring Physician Family Medicine 12/31/21 Katrin Orellana PA-C [address] [place] [address] 885715 Physician Mash Filter Press Operator Dermatology 12/31/21 Shanna Vang PA-C [address] [place] [address] [phone] Assigned Cancer Care Provider 01/10/22 Fransisco Eddy MD [address] [place] [address] [phone] Assigned Rheumatology Provider 05/09/22 [place] [address] [place]ARCIA [address] Assigned Pain Medication Provider 06/29/22 09/04/22 [place] [address] [place] [address] Assigned PCP 08/15/22 08/28/22 Katrin Orellana PA-C [address] [place] [address] [phone] Assigned Surgical Provider 08/15/22 02/10/24 Cristina Hsieh [facility] [address] [facility] [place] [address] Pharmacist Pharmacist 09/07/22 Alfreda Ray PA-C [address] [place] [address] 904292 Assigned Pain Medication Provider 09/05/22 09/10/23 Alfreda Ray PA-C [address] [place] [address] [phone] Assigned PCP 08/29/22 Cristina Hsieh [facility] [address] [place] [address] Assigned MTM Pharmacist 09/26/22 Dakota Tatum MD [address] [place] [address] [phone] Cardiovascular Disease 03/25/23 Dakota Tatum MD [address] [place] [address] Assigned Heart and Vascular Provider 05/01/23 [place] [address] [place] , [facility] [address] [place] [address] Assigned Musculoskeletal Provider 04/12/24 documented as of this encounter
--- OUTSIDE RECORDS SUMMARY | 2024-07-28 12:39 | XMS_ITS | Encounter Summary ---
Author Organization [facility] Address [address] [place] [address] Care Team Providers Care Creative Perfumer Name Role Phone Esperanza Gatica MD Primary Care Provider + Esperanza Gatica MD Unavailable +[phone] Esperanza Gatica MD Unavailable +[phone] Esperanza Gatica MD Unavailable +[phone] Esperanza Gatica MD Unavailable +[phone] Esperanza Gatica MD Unavailable +[phone] Esperanza Gatica MD Unavailable +[phone] Jesús Orourke MD Unavailable Alfreda RayC Primary Care Provider + Alfreda Ray PA-C Unavailable + [phone] Katrin Orellana PA-C Unavailable [phone] Shanna VangC Unavailable +[phone] Fransisco Eddy MD Unavailable [phone] Esperanza Gatica MD Unavailable +[phone] Esperanza Gatica MD Unavailable +[phone] Katrin Orellana PA-C Unavailable Cristina Hsieh [facility] Unavailable Cory Alfreda Liu PA-C Unavailable +[phone] Ho Raymustapha Liu PA-C Unavailable +[phone] Cristina Hsieh [facility] Unavailable [phone] Dakota Tatum MD Unavailable [phone] Dakota Tatum MD Unavailable [phone] Srinivas Marie DO Unavailable [phone] Reason for Visit * Reason Onset Date Comments Refill Request 05/06/2014 Tramadol 50mg Encounter Details Date Type Department Care Team (Late st Contact Info) Description 05/06/2014 MyC Refill [address], [facility] 100 [place] [address] [place] [address] [place] [address] Refill Request (Tramadol 50mg) Social History Tobacco Use Types Packs/Day Years Used Date Smoking Tobacco: Former Cigarettes Q uit: 06/21/1973 Smokeless Tobacco: Former Alcohol Use Standard Drinks/Week Comments Yes 0 (1 standard drink = 0.6 oz pur e alcohol) rarely Comments No Sex and Gender Information Value Date Recorded Sex Assigned at Female 08/17/2018 7:56 AM IDENTIFICATION CLERK Legal Sex Female 4:24 AM IDENTIFICATION CLERK Gender Identity Female 08/17/2018 7:56 AM IDENTIFICATION CLERK Sexual Orientation Straight 08/17/2018 7: 56 AM IDENTIFICATION CLERK documented as of this encounter Miscellaneous Notes * Telephone Encounter - Leigha Rinaldi RN - 05/07/2014 2:40 PM CST Pending Prescriptions: Disp Refills traMADol (ULTRAM) 50 MG tablet 30 tab*0 Sig: Take 1 tablet (50 mg) by mouth every 6 hours as needed for pain Last OV: 03/29/2014 Reason: IBS Last filled: 04/09/2014 #30 Leigha Rinaldi RN TIFICATION CLERK * Telephone Encounter - Leigha Rinaldi RN - 05/07/2014 2:39 PM CSTMessage from MyChart: Original authorizing provider: MD Alexandria Brannon would like a refill of the following medications: traMADol (ULTRAM) 50 MG tablet [Esperanza Gatica MD] Preferred pharmacy: [id number] Comment: TIFICATION CLERK documented in this encounter Plan of Treatment Upcoming Encounters Date Type Department Care Team (Late st Contact Info) Description 09/07/2024 10:00 AM CDT Office Visit [facility] [address] 200 [place] [phone] Fransisco Eddy MD [address] [place] [address] 88 [place], [place] 4469[address] 09/18/2024 2:00 PM CDT Virtual Visit [facility] [address] [place] [address] 105 [place] [address] Shanna Vang, PARobinson [address] [place] [address] 03/29/2025 3:40 PM CDT Office Visit [address] [place] [phone] Alfreda Ray PA-C [address] [place] [address] 207292 documented as of this encounter Visit Diagnoses Diagnosis HTN (hypertension), benign Essential hypertension, benign documented in this encounter Additional Health Concerns Infection Onset Date Last Indicated Resolved Time Rule Out COVID-19 05/08/2021 05/08/2021 05/09/2021 9:08 PM IDENTIFICATION CLERK documented as of this encounter Care Teams Creative Perfumer Relationship Specialty Start Date End Date Esperanza Gatica MD PCP - General Family Practice 10/13/11 12/29/21 [place] [address] [place] [address] PCP - Assigned PCP 12/05/17 08/23/18 Alfreda Ray PA-C [address] [place] [address] PCP - General Family Medicine 12/30/21 [place] [address] [place] [address] Assigned PCP 12/05/17 09/30/19 [place] [address] [place] [address] Assigned PCP 10/01/19 03/02/20 [place] [address] [place] [address] Assigned PCP 03/03/20 05/25/20 [place] [address] [place] [address] Assigned PCP 05/26/20 09/28/20 [place] [address] [place] [address] Assigned PCP 09/29/20 07/31/22 Jesú[place] [address] [address] Assigned Musculoskeletal Provider 10/20/20 04/17/22 Alfreda Ray PA-C [address] [place] [address] [phone] Referring Physician Family Medicine 12/31/21 Katrin Orellana PA-C [address] [place] [address] [phone] Physician Rubber Chemist Dermatology 12/31/21 Shanna Vang PA-C [address] [place] [address] 116654 Assigned Cancer Care Provider 01/10/22 Fransisco Eddy MD [address] [place] [address] [phone] Assigned Rheumatology Provider 05/09/22 [place] [address] [place] [address] Assigned Pain Medication Provider 06/29/22 09/04/22 [place] [address] [place]ARC[place] [address] Assigned PCP 08/15/22 08/28/22 Katrin Orellana PA-C [address] [place] [address] [phone] Assigned Surgical Provider 08/15/22 02/10/24 Cristina Hsieh [facility] [address] [facility] [place] [address] Pharmacist Pharmacist 09/07/22 Alfreda Ray PA-C [address] [place] [address] 795662 Assigned Pain Medication Provider 09/05/22 09/10/23 Alfreda Ray PA-C [address] [place] [address] [phone] Assigned PCP 08/29/22 Cristina Hsieh [facility] [address] [place] [address] Assigned MTM Pharmacist 09/26/22 Dakota Tatum MD [address] [place] [address] [phone] Cardiovascular Disease 03/25/23 Dakota Tatum MD [address] [place] [address] Assigned Heart and Vascular Provider 05/01/23 [place] [address] [place] , [facility] [address] [place] [address] Assigned Musculoskeletal Provider 04/12/24 documented as of this encounter
--- OUTSIDE RECORDS SUMMARY | 2024-07-28 12:39 | XMS_ITS | Encounter Summary ---
Author Organization [facility] Address [address] [place] [address] Care Team Providers Care Electric Tape Slitter Name Role Phone Esperanza Gatica MD Primary Care Provider + Esperanza Gatica MD Unavailable +[phone] Esperanza Gatica MD Unavailable +[phone] Esperanza Gatica MD Unavailable +[phone] Esperanza Gatica MD Unavailable +[phone] Esperanza Gatica MD Unavailable +[phone] Esperanza Gatica MD Unavailable +[phone] Jesús Orourke MD Unavailable Alfreda RayC Primary Care Provider + Alfreda Ray PA-C Unavailable + [phone] Katrin Orellana PA-C Unavailable +[phone] Shanna VangC Unavailable +[phone] Fransisco Eddy MD Unavailable [phone] Esperanza Gtaica MD Unavailable +[phone] Esperanza Gatica MD Unavailable +[phone] Katrin Orellana PA-C Unavailable Cristina Hsieh [facility] Unavailable Cory Alfreda Liu PA-C Unavailable +[phone] Alfreda Ray Alexa KING Unavailable +[phone] Cristina Hsieh [facility] Unavailable [phone] Dakota Tatum MD Unavailable Dakota Tatum MD Unavailable [phone] Srinivas Marie DO Unavailable [phone] Reason for Visit * Reason Onset Date Comments Refill Request 11/06/2012 Ambien 10mg Encounter Details Date Type Department Care Team (Late st Contact Info) Description 11/06/2012 MyC Refill M [address], [facility] 100 [place] [address] [place] [address] [place] [address] Refill Request (Ambien 10mg) Social History Tobacco Use Types Packs/Day Years Used Date Smoking Tobacco: Former Cigarettes Q uit: 06/21/1973 Smokeless Tobacco: Former Alcohol Use Standard Drinks/Week Comments Yes 0 (1 standard drink = 0.6 oz pur e alcohol) rarely Comments No Sex and Gender Information Value Date Recorded Sex Assigned at Female 08/17/2018 7:56 AM INSPECTOR PACKER GLASS CONTAINER Legal Sex Female 4:24 AM INSPECTOR PACKER GLASS CONTAINER Gender Identity Female 08/17/2018 7:56 AM INSPECTOR PACKER GLASS CONTAINER Sexual Orientation Straight 08/17/2018 7: 56 AM INSPECTOR PACKER GLASS CONTAINER documented as of this encounter Miscellaneous Notes [...] MG tablet [Esperanza Gatica MD] Preferred pharmacy: [facility] #[id number] - [address] Comment: Sent from my iPad documented in this encounter Plan of Treatment Upcoming Encounters Date Type Department Care Team (Late st Contact Info) Description 09/07/2024 10:00 AM CDT Office Visit [facility] [address] 200 [place] [phone] Fransisco Eddy MD [address] [place] [address] 88 [place] [address] 09/18/2024 2:00 PM CDT Virtual Visit [facility] [address] [place] [address] 105 [place] [address] Shanna Vang, PARobinson [address] [place] [address] 880644 03/29/2025 3:40 PM CDT Office Visit [address] [phone] Alfreda Ray PA-C [address] [place] [address] documented as of this encounter Visit Diagnoses Diagnosis Insomnia, unspecified documented in this encounter Additional Health Concerns Infection Onset Date Last Indicated Resolved Time Rule Out COVID-19 05/08/2021 05/08/2021 05/09/2021 9:08 PM INSPECTOR PACKER GLASS CONTAINER documented as of this encounter Care Teams Electric Tape Slitter Relationship Specialty Start Date End Date Esperanza Gatica MD PCP - General Family Practice 10/13/11 12/29/21 [place] [address] [place] [address] PCP - Assigned PCP 12/05/17 08/23/18 Alfreda Ray PA-C [address] [place] [address] PCP - General Family Medicine 12/30/21 [place] [address] [place], [place] [address] Assigned PCP 12/05/17 09/30/19 [place] [address] [place] [address] Assigned PCP 10/01/19 03/02/20 [place] [address] [place] [address] Assigned PCP 03/03/20 05/25/20 [place] [address] [place] [address] Assigned PCP 05/26/20 09/28/20 [place] [address] [place] [address] Assigned PCP 09/29/20 07/31/22 Jesú[place] [address] [place] [address] Assigned Musculoskeletal Provider 10/20/20 04/17/22 Alfreda Ray PA-C [address] [place] [address] 572572 Referring Physician Family Medicine 12/31/21 Katrin Orellana PA-C [address] [place] [address] 638765 Physician Cyber Intelligence Analyst Dermatology 12/31/21 Shanna Vang PA-C [address] [place] [address] [phone] Assigned Cancer Care Provider 01/10/22 Fransisco Eddy MD [address] [place] [address] 738445 Assigned Rheumatology Provider 05/09/22 [place] [address] [facility] [place], [place] [phone] Assigned Pain Medication Provider 06/29/22 09/04/22 [place] [address] [facility] [place] [address] Assigned PCP 08/15/22 08/28/22 Katrin Orellana PA-C [address] [place] [address] 409265 Assigned Surgical Provider 08/15/22 02/10/24 Cristina Hsieh [facility] [address] [facility] [place] [address] Pharmacist Pharmacist 09/07/22 Alfreda Ray PA-C [address] [place] [address]762 Assigned Pain Medication Provider 09/05/22 09/10/23 Alfreda Ray PA-C [address] [place] [address] 53721 Assigned PCP 08/29/22 Cristina Hsieh, [facility] [address] [place] [address] Assigned MTM Pharmacist 09/26/22 Dakota Tatum MD [address] [place] [address] Cardiovascular Disease 03/25/23 Dakota Tatum MD [address] [place] [address] Assigned Heart and Vascular Provider 05/01/23 [place] [address] [address], [address] [address] Assigned Musculoskeletal Provider 04/12/24 documented as of this encounter
--- OUTSIDE RECORDS SUMMARY | 2024-07-28 12:39 | XMS_ITS | Encounter Summary ---
Author Organization [facility] Address [address] [place] [address] Care Team Providers Care Distribution Driver Name Role Phone Esperanza Gatica MD Primary Care Provider + Esperanza Gatica MD Unavailable +[phone] Esperanza Gatica MD Unavailable +[phone] Esperanza Gatica MD Unavailable +[phone] Esperanza Gatica MD Unavailable +[phone] Esperanza Gatica MD Unavailable +[phone] Esperanza Gatica MD Unavailable +[phone] Jesús Orourke MD Unavailable Alfreda RayC Primary Care Provider + Alfreda Ray PA-C Unavailable + [phone] Katrin Orellana PA-C Unavailable +[phone] Shanna VangC Unavailable +[phone] Fransisco Eddy MD Unavailable +[phone] Esperanza Gatica MD Unavailable +[phone] Esperanza Gatica MD Unavailable +[phone] Katrin Orellana PA-C Unavailable Cristina Hsieh [facility] Unavailable Cory Alfreda Liu PA-C Unavailable Alfreda Ray Alexa KING Unavailable [phone] Cristina Hsieh [facility] Unavailable Dakota Tatum MD Unavailable Dakota Tatum MD Unavailable [phone] Srinivas Marie DO Unavailable [phone] Reason for Visit * Reason Onset Date Comments Refill Request 04/07/2014 Encounter Details Date Type Department Care Team (Late st Contact Info) Description 04/07/2014 MyC Refill [address], [address] [place] [address] [place] [address] [place] [address] Refill Request Social History Tobacco Use Types Packs/Day Years Used Date Smoking Tobacco: Former Cigarettes Q uit: 06/21/1973 Smokeless Tobacco: Former Alcohol Use Standard Drinks/Week Comments Yes 0 (1 standard drink = 0.6 oz pur e alcohol) rarely Comments No Sex and Gender Information Value Date Recorded Sex Assigned at Female 08/17/2018 7:56 AM STEEL ERECTOR Legal Sex Female 4:24 AM STEEL ERECTOR Gender Identity Female 08/17/2018 7:56 AM STEEL ERECTOR Sexual Orientation Straight 08/17/2018 7: 56 AM STEEL ERECTOR documented as of this encounter Miscellaneous Notes * Telephone Encounter - Fartun Mayes RN - 04/09/2014 9:20 AM CDT MyChart refill request for tramadol. Last OV 03/29/14. Last filled 03/05/14, qty 30. Unable to refillper SO protocol, to for auth. * Telephone Encounter - Fartun Mayes RN - 04/09/2014 9:17 AM CDTMessage [facility]: Original authorizing provider: MD Alexandria Brannon would like a refill of the following medications: traMADol (ULTRAM) 50 MG tablet [Esperanza Gatica MD] Preferred pharmacy: [id number] - [address] Comment: documented in this encounter Plan of Treatment Upcoming Encounters Date Type Department Care Team (Late st Contact Info) Description 09/07/2024 10:00 AM CDT Office Visit [facility] [address] [place] [phone] Fransisco Eddy MD [address] [place] [address] 88 [place] [address] 09/18/2024 2:00 PM CDT Virtual Visit [facility] [place] [address] 105 [place] [address] Shanna Vang, PARobinson [address] [place] [address] 03/29/2025 3:40 PM CDT Office Visit [address] [place] [phone] Alfreda Ray PA-C [address] [place] [address] 469652 documented as of this encounter Visit Diagnoses Diagnosis HTN (hypertension), benign Essential hypertension, benign documented in this encounter Additional Health Concerns Infection Onset Date Last Indicated Resolved Time Rule Out COVID-19 05/08/2021 05/08/2021 05/09/2021 9:08 PM STEEL ERECTOR documented as of this encounter Care Teams Distribution Driver Relationship Specialty Start Date End Date Esperanza Gatica MD PCP - General Family Practice 10/13/11 12/29/21 [place] [address] [place] [address] PCP - Assigned PCP 12/05/17 08/23/18 Alrfeda Ray PA-C [address] [place] [address], [place] [address] PCP - General Family Medicine 12/30/21 [place] [address] [place] [address] Assigned PCP 12/05/17 09/30/19 [place] [address] [place] [address] Assigned PCP 10/01/19 03/02/20 [place] [address] [place] [address] Assigned PCP 03/03/20 05/25/20 [place] [address] [place] [address] Assigned PCP 05/26/20 09/28/20 [place] [address] [place] [address] Assigned PCP 09/29/20 07/31/22 Jesú[place] [address] [place] [address] Assigned Musculoskeletal Provider 10/20/20 04/17/22 Alfreda Ray PA-C [address] [place] [address] 338242 Referring Physician Family Medicine 12/31/21 Katrin Orellana PA-C [address] [place] [address] [phone] Physician Tier Lift Operator Dermatology 12/31/21 Shanna Vang PA-C [address] [id number] Assigned Cancer Care Provider 01/10/22 Fransisco Eddy MD [address] [place] [address] 322855 Assigned Rheumatology Provider 05/09/22 [place] [address] [place] [address] Assigned Pain Medication Provider 06/29/22 09/04/22 [place] [address] [address] GARCIA [address] Assigned PCP 08/15/22 08/28/22 Katrin Orellana PA-C [address] [place] [address] 806575 Assigned Surgical Provider 08/15/22 02/10/24 Cristina Hsieh, [facility] [address] [facility] LISBETH HERNANDEZ [address] Pharmacist Pharmacist 09/07/22 Alfreda Ray PA-C [address] [place] [address] 568352 Assigned Pain Medication Provider 09/05/22 09/10/23 Alfreda Ray PA-C [address] [place] [address] 595112 Assigned PCP 08/29/22 Cristina Hsieh, [facility] [address] [address] Assigned MTM Pharmacist 09/26/22 Dakota Tatum MD [address] [place] [address] Cardiovascular Disease 03/25/23 Dakota Tatum MD [address] [place] [address] Assigned Heart and Vascular Provider 05/01/23 [place] [address] [address], [address] [address] Assigned Musculoskeletal Provider 04/12/24 documented as of this encounter
--- OUTSIDE RECORDS SUMMARY | 2024-07-28 12:39 | XMS_ITS | Encounter Summary ---
Author Organization [facility] Address [address] [place] [address] Care Team Providers Care Staff Consultant Name Role Phone Esperanza Gatica MD Primary Care Provider + Esperanza Gatica MD Unavailable +[phone] Esperanza Gatica MD Unavailable +[phone] Esperanza Gatica MD Unavailable +[phone] Esperanza Gatica MD Unavailable +[phone] Esperanza Gatica MD Unavailable +[phone] Esperanza Gatica MD Unavailable +[phone] Jesús Orourke MD Unavailable Alfreda RayC Primary Care Provider + Alfreda Ray PA-C Unavailable + [phone] Katrin Orellana PA-C Unavailable [phone] Shanna VangC Unavailable +[phone] Fransisco Eddy MD Unavailable [phone] Esperanza Gatica MD Unavailable +[phone] Esperanza Gatica MD Unavailable +[phone] Katrin Orellana PA-C Unavailable Cristina Hsieh [facility] Unavailable Cory Alfreda Liu PA-C Unavailable +[phone] Ho Raymustapha Liu PA-C Unavailable [phone] Cristina Hsieh [facility] Unavailable [phone] Dakota Tatum MD Unavailable [phone] Dakota Tatum MD Unavailable [phone] Srinivas Marie DO Unavailable [phone] Reason for Visit * Reason Onset Date Comments Refill Request 07/02/2014 Tramadol 50mg Encounter Details Date Type Department Care Team (Late st Contact Info) Description 07/02/2014 MyC Medical Advice [address], [facility] [address] [place] [address] [place] [address] [place] [address] Refill Request (Tramadol 50mg) Social History Tobacco Use Types Packs/Day Years Used Date Smoking Tobacco: Former Cigarettes Q uit: 06/21/1973 Smokeless Tobacco: Former Alcohol Use Standard Drinks/Week Comments Yes 0 (1 standard drink = 0.6 oz pur e alcohol) rarely Comments No Sex and Gender Information Value Date Recorded Sex Assigned at Female 08/17/2018 7:56 AM SOFTWARE QUALITY TESTER Legal Sex Female 4:24 AM SOFTWARE QUALITY TESTER Gender Identity Female 08/17/2018 7:56 AM SOFTWARE QUALITY TESTER Sexual Orientation Straight 08/17/2018 7: 56 AM SOFTWARE QUALITY TESTER documented as of this encounter Miscellaneous Notes * Telephone Encounter - Leigha Rinaldi RN - 07/03/2014 9:13 AM CST Pending Prescriptions: Disp Refills traMADol (ULTRAM) 50 MG tablet 30 tab*0 Sig: Take 1 tablet (50 mg) by mouth every 6 hours as needed for pain Last OV: 03/29/2014 Reason: IBS Last filled: 06/04/2014 #30 Leigha Rinaldi RN WARE QUALITY TESTER documented in this encounter Plan of Treatment Upcoming Encounters Date Type Department Care Team (Late st Contact Info) Description 09/07/2024 10:00 AM CDT Office Visit [facility] [place] [address] [facility] 200 [place] [phone] Fransisco Eddy MD [address] [place] [address] 88 [place] [address] 09/18/2024 2:00 PM CDT Virtual Visit [facility] [address] [place] [address] [address] [place] [phone] Shanna Vang, PARobinson [address] [place] [address] 03/29/2025 3:40 PM CDT Office Visit [address] [address] Alfreda Ray PA-C [address] [place] [address] [phone] documented as of this encounter Visit Diagnoses Diagnosis HTN (hypertension), benign- Primary Essential hypertension, benign documented in this encounter Additional Health Concerns Infection Onset Date Last Indicated Resolved Time Rule Out COVID-19 05/08/2021 05/08/2021 05/09/2021 9:08 PM SOFTWARE QUALITY TESTER documented as of this encounter Care Teams Staff Consultant Relationship Specialty Start Date End Date Esperanza Gatica MD PCP - General Family Practice 10/13/11 12/29/21 [place] [address] [place]ISB[place] GARCIA [address] PCP - Assigned PCP 12/05/17 08/23/18 Alfreda Ray PA-C [address] [place] [address] PCP - General Family Medicine 12/30/21 [place] [address] [place] [address] Assigned PCP 12/05/17 09/30/19 [place] [address] [place] [address] Assigned PCP 10/01/19 03/02/20 [place] [address] [place] [address] Assigned PCP 03/03/20 05/25/20 [place] [address] [place] [address] Assigned PCP 05/26/20 09/28/20 [place] [address] [place] [address] Assigned PCP 09/29/20 07/31/22 Jesú[place] [address] [place] [address] Assigned Musculoskeletal Provider 10/20/20 04/17/22 Alfreda Ray PA-C [address] [place] [address] Referring Physician Family Medicine 12/31/21 Katrin Orellana PA-C [address] [place] [address] Physician Sales Hunter Dermatology 12/31/21 Shanna Vang PA-C [facility] 596574 Assigned Cancer Care Provider 01/10/22 Fransisco Eddy MD [address] [place] [address] 698905 Assigned Rheumatology Provider 05/09/22 [place] [address] [place] [address] Assigned Pain Medication Provider 06/29/22 09/04/22 [place] [address] [place] [address] Assigned PCP 08/15/22 08/28/22 Katrin Orellana PA-C [address] [place] [address] Assigned Surgical Provider 08/15/22 02/10/24 Cristina Hsieh [facility] [address] [place] [address] LISBETH HERNANDEZ [address] Pharmacist Pharmacist 09/07/22 Alfreda Ray PA-C [address] [place] [address] Assigned Pain Medication Provider 09/05/22 09/10/23 Alfreda Ray PA-C [address] [place] [address] Assigned PCP 08/29/22 Cristina Hsieh, [facility] [address] [place] [address] Assigned MTM Pharmacist 09/26/22 Dakota Tatum MD [address] [place] [address] 848235 Cardiovascular Disease 03/25/23 Dakota Tatum MD [address] [place] [address] 904795 Assigned Heart and Vascular Provider 05/01/23 [place] [address] [address] Assigned Musculoskeletal Provider 04/12/24 documented as of this encounter
--- OUTSIDE RECORDS SUMMARY | 2024-07-28 12:39 | XMS_ITS | Encounter Summary ---
Author Organization [facility] Address [address] [place] [address] Care Team Providers Care Reclamation Furnace Operator Name Role Phone Esperanza Gatica MD Primary Care Provider + Esperanza Gatica MD Unavailable +[phone] Esperanza Gatica MD Unavailable +[phone] Esperanza Gatica MD Unavailable +[phone] Esperanza Gatica MD Unavailable +[phone] Esperanza Gatica MD Unavailable +[phone] Esperanza Gatica MD Unavailable +[phone] Jesús Orourke MD Unavailable Alfreda RayC Primary Care Provider + Alfreda Ray PA-C Unavailable + [phone] Katrin Orellana PA-C Unavailable [phone] Shanna VangC Unavailable +[phone] Fransisco Eddy MD Unavailable [phone] Esperanza Gatica MD Unavailable +[phone] Esperanza Gatica MD Unavailable +[phone] Katrin Orellana PA-C Unavailable Cristina Hsieh [facility] Unavailable Cory Alfreda Liu PA-C Unavailable [phone] Alfreda Ray Alexa KING Unavailable +[phone] Cristina Hsieh [facility] Unavailable Dakota Tatum MD Unavailable Dakota Tatum MD Unavailable Srinivas Marie DO Unavailable [phone] Reason for Visit * Reason Onset Date Comments Refill Request 10/23/2012 Zocor 20mg Encounter Details Date Type Department Care Team (Late st Contact Info) Description 10/23/2012 MyC Refill M [address], [facility] 100 [place] [address] [place] [address] [place] [address] Refill Request (Zocor 20mg) Social History Tobacco Use Types Packs/Day Years Used Date Smoking Tobacco: Former Cigarettes Q uit: 06/21/1973 Smokeless Tobacco: Former Alcohol Use Standard Drinks/Week Comments Yes 0 (1 standard drink = 0.6 oz pur e alcohol) rarely Comments No Sex and Gender Information Value Date Recorded Sex Assigned at Female 08/17/2018 7:56 AM BUSINESS OBJECTS DEVELOPER Legal Sex Female 4:24 AM BUSINESS OBJECTS DEVELOPER Gender Identity Female 08/17/2018 7:56 AM BUSINESS OBJECTS DEVELOPER Sexual Orientation Straight 08/17/2018 7: 56 AM BUSINESS OBJECTS DEVELOPER documented as of this encounter Miscellaneous Notes [...] Rinaldi - 10/24/2012 7:44 AM CDTMessage from [facility]: Original authorizing provider: MD Alexandria Brannon would like a refill of the following medications: simvastatin (ZOCOR) 20 MG tablet [Esperanza Gatica MD] Preferred pharmacy: [id number] Comment: Sent from [employer] documented in this encounter Plan of Treatment Upcoming Encounters Date Type Department Care Team (Late st Contact Info) Description 09/07/2024 10:00 AM CDT Office Visit [facility] [address] [phone] Fransisco Eddy MD [address] [place] [address] 09/18/2024 2:00 PM CDT Virtual Visit [facility] [address] [place] [address] 105 [place] [address] Shanna Vang, PAFilemonC [address] [place] [address] 03/29/2025 3:40 PM CDT Office Visit [address] [place] [address] Alfreda Ray PA-C [address] [place] [address] 516012 documented as of this encounter Visit Diagnoses Diagnosis Hyperlipidemia LDL goal <160- Primary Other and unspecified hyperlipidemia documented in this encounter Additional Health Concerns Infection Onset Date Last Indicated Resolved Time Rule Out COVID-19 05/08/2021 05/08/2021 05/09/2021 9:08 PM BUSINESS OBJECTS DEVELOPER documented as of this encounter Care Teams Reclamation Furnace Operator Relationship Specialty Start Date End Date Esperanza Gatica MD PCP - General Family Practice 10/13/11 12/29/21 [place] [address] [address] GARCIA [address] PCP - Assigned PCP 12/05/17 08/23/18 Alfreda Ray PA-C [address] [place] [address] 958062 PCP - General Family Medicine 12/30/21 [place] [address] [address]ARCIA [address] Assigned PCP 12/05/17 09/30/19 [place] [address] [place] GARCIA [address] Assigned PCP 10/01/19 03/02/20 [place] [address] [place] GARCIA [address] Assigned PCP 03/03/20 05/25/20 [place] [address] [place] [address] Assigned PCP 05/26/20 09/28/20 [place] [address] [place] [address] Assigned PCP 09/29/20 07/31/22 [place] [address] [place] [address] 918657 Assigned Musculoskeletal Provider 10/20/20 04/17/22 Alfreda Ray PA-C [address] [place] [address] Referring Physician Family Medicine 12/31/21 Katrin Orellana PA-C [address] [place] [address] Physician Conche Loader And Unloader Dermatology 12/31/21 Shanna Vang PA-C [facility] [place] [address] [address] Assigned Cancer Care Provider 01/10/22 Fransisco Eddy MD [address] [place] [address] 214235 Assigned Rheumatology Provider 05/09/22 [place] [address] [place] [address] Assigned Pain Medication Provider 06/29/22 09/04/22 [place] [address] [place] [address] Assigned PCP 08/15/22 08/28/22 Katrin Orellana PA-C [address] [place] [address] Assigned Surgical Provider 08/15/22 02/10/24 Cristina Hsieh [facility] [address] [place] [address] [place] [address] Pharmacist Pharmacist 09/07/22 Alfreda Ray PA-C [address] [place] [address]99 Assigned Pain Medication Provider 09/05/22 09/10/23 Alfreda Ray PA-C [address] [place] [address] 702442 Assigned PCP 08/29/22 Cristina Hsieh [facility] [address] [place] [address] Assigned MTM Pharmacist 09/26/22 Dakota Tatum MD [address] [place] [address] 257225 Cardiovascular Disease 03/25/23 Dakota Tatum MD [address] [place] [address] 033215 Assigned Heart and Vascular Provider 05/01/23 [place] [address] [address], [address] [phone] Assigned Musculoskeletal Provider 04/12/24 documented as of this encounter
--- OUTSIDE RECORDS SUMMARY | 2024-07-28 12:39 | XMS_ITS | Encounter Summary ---
Author Organization [facility] Address [address] [place] [address] 13935 Care Team Providers Care Engine Cowling Installer Name Role Phone Esperanza Gatica MD Primary Care Provider + Esperanza Gatica MD Unavailable +[phone] Esperanza Gatica MD Unavailable +[phone] Esperanza Gatica MD Unavailable +[phone] Esperanza Gatica MD Unavailable +[phone] Esperanza Gatica MD Unavailable +[phone] Esperanza Gatica MD Unavailable +[phone] Jesús Orourke MD Unavailable Alfreda RayC Primary Care Provider + Alfreda Ray PA-C Unavailable + [phone] Katrin Orellana PA-C Unavailable +[phone] Shanna VangC Unavailable +[phone] rFansisco Eddy MD Unavailable +[phone] Esperanza Gatica MD Unavailable +[phone] Esperanza Gatica MD Unavailable +[phone] Katrin Orellana PA-C Unavailable Cristina Hsieh [facility] Unavailable Alfreda Ray Alexa KING Unavailable +[phone] Alfreda Ray Alexa KING Unavailable +[phone] Cristina Hsieh [facility] Unavailable +[phone] Dakota Tatum MD Unavailable Dakota Tatum MD Unavailable [phone] Srinivas Marie DO Unavailable [phone] Reason for Visit * Reason Onset Date Comments Refill Request 10/28/2012 Bryant Bazzi l Encounter Details Date Type Department Care Team (Late st Contact Info) Description 10/28/2012 MyC Refill M [address], [address] [place] [address] [place] [address] [place] [address] Refill Request (Vicodin, Tramadol) Social History Tobacco Use Types Packs/Day Years Used Date Smoking Tobacco: Former Cigarettes Q uit: 06/21/1973 Smokeless Tobacco: Former Alcohol Use Standard Drinks/Week Comments Yes 0 (1 standard drink = 0.6 oz pur e alcohol) rarely Comments No Sex and Gender Information Value Date Recorded Sex Assigned at Female 08/17/2018 7:56 AM BUSINESS CONTINUITY MANAGEMENT DIRECTOR Legal Sex Female 4:24 AM BUSINESS CONTINUITY MANAGEMENT DIRECTOR Gender Identity Female 08/17/2018 7:56 AM BUSINESS CONTINUITY MANAGEMENT DIRECTOR Sexual Orientation Straight 08/17/2018 7: 56 AM BUSINESS CONTINUITY MANAGEMENT DIRECTOR documented as of this encounter Miscellaneous Notes * Telephone Encounter - Leigha Rianldi - 10/28/2012 11:27 AM CDT [employer] message sent to patient. Leigha Rinaldi RN [...] Rinaldi - 10/28/2012 10:36 AM CDTMessage from [facility]: Original authorizing provider: Esperanza Gatica MD Alexandria Fregoso Leeann would like a refill of the following medications: HYDROcodone-acetaminophen (VICODIN) 5-500 MG per tablet [Esperanza Gatica MD] Preferred pharmacy: [facility] [address] [place] [address] Comment: Medication renewals requested in this message routed to other providers: traMADol (ULTRAM) 50 MG tablet [Royer Brumfield MD, MD] documented in this encounter Plan of Treatment Upcoming Encounters Date Type Department Care Team (Late st Contact Info) Description 09/07/2024 10:00 AM CDT Office Visit [facility] [address] [phone] Fransisco Eddy MD [address] [place] [address] 023185 09/18/2024 2:00 PM CDT Virtual Visit [facility] [address] [place] [address] [address] [place] [phone] Shanna Vang, PAFilemonC [address] [place] [address] 456454 03/29/2025 3:40 PM CDT Office Visit [address] [address] Alfreda Ray PA-C [address] [place] [address] documented as of this encounter Visit Diagnoses Diagnosis Osteoarthritis- Primary Osteoarthrosis, unspecified whether generalized or localized, unspecified site Knee pain Pain in joint, lower leg documented in this encounter Additional Health Concerns Infection Onset Date Last Indicated Resolved Time Rule Out COVID-19 05/08/2021 05/08/2021 05/09/2021 9:08 PM BUSINESS CONTINUITY MANAGEMENT DIRECTOR documented as of this encounter Care Teams Engine Cowling Installer Relationship Specialty Start Date End Date Esperanza Gatica MD PCP - General Family Practice 10/13/11 12/29/21 [place] [address] [place] GARCIA [address] PCP - Assigned PCP 12/05/17 08/23/18 Alfreda Ray PA-C [address] [place] [address] PCP - General Family Medicine 12/30/21 [place] [address] [place] GARCIA [address] Assigned PCP 12/05/17 09/30/19 [place] [address] [place] GARCIA [address] Assigned PCP 10/01/19 03/02/20 [place] [address] [place] [address] Assigned PCP 03/03/20 05/25/20 [place] [address] [place] [address] Assigned PCP 05/26/20 09/28/20 [place] [address] [place] [address] Assigned PCP 09/29/20 07/31/22 [place] [address] [place] [address] Assigned Musculoskeletal Provider 10/20/20 04/17/22 Alfreda Ray PA-C [address] [place] [address] [phone] Referring Physician Family Medicine 12/31/21 Katrin Orellana PA-C [address] [place] [address] 978955 Physician Client Relationship Executive Dermatology 12/31/21 Shanna Vang PA-C [address] [place] [address] 047934 Assigned Cancer Care Provider 01/10/22 Fransisco Eddy MD [address] [place] [address] [phone] Assigned Rheumatology Provider 05/09/22 [place] [address] [place] [address] Assigned Pain Medication Provider 06/29/22 09/04/22 [place] [address] [place] [address] Assigned PCP 08/15/22 08/28/22 Katrin Orellana PA-C [address] [place] [address] 124405 Assigned Surgical Provider 08/15/22 02/10/24 Cristina Hsieh [facility] [address] [place] [address] [place] [address] Pharmacist Pharmacist 09/07/22 Aflreda Ray PA-C [address] [place] [address] 085882 Assigned Pain Medication Provider 09/05/22 09/10/23 Alfreda Ray PA-C [address] [place] [address]48[address] Assigned PCP 08/29/22 Cristina Hsieh [facility] [address] [phone] Assigned MTM Pharmacist 09/26/22 Dakota Tatum MD 6 [place] [address] Cardiovascular Disease 03/25/23 Dakota Tatum MD 6 [place] [address] Assigned Heart and Vascular Provider 05/01/23 [place] [address] [address], [address] [address] Assigned Musculoskeletal Provider 04/12/24 documented as of this encounter
--- OUTSIDE RECORDS SUMMARY | 2024-07-28 12:40 | XMS_ITS | Encounter Summary ---
Author Organization [facility] Address [address] [place] [address]36 Care Team Providers Care Business Center Representative Name Role Phone Esperanza Gatica MD Primary Care Provider + Esperanza Gatica MD Unavailable + Jesús Orourke MD Unavailable Alfreda Ray-C Primary Care Provider + Alfreda RayC Unavailable +[phone] Katrin Orellana PA-C Unavailable +[phone] Shanna Vang PA-C Unavailable +[phone] Fransisco Eddy MD Unavailable +[phone] Esperanza Gatica MD Unavailable + Esperanza Gatica MD Unavailable + Katrin OrellanaC Unavailable +[phone] Cristina Hsieh [facility] Unavailable [phone] Alfreda Ray PA-C Unavailable +[phone] Alfreda Ray PA-C Unavailable +[phone] Cristina [facility]h [facility] Unavailable [phone] Dakota Tatum MD Unavailable Dakota Tatum MD Unavailable + [phone] Srinivas Marie DO Unavailable [phone] Encounter Details Date Type Department Care Team (Late st Contact Info) Description 03/03/2021 MyC Medical Advice [facility] [address] [place] [phone] [place] [address] [place] [address] Social History Tobacco Use Types [...] Sex Assigned at Female 08/17/2018 7:56 AM LPC Legal Sex Female 4:24 AM LPC Gender Identity Female 08/17/2018 7:56 AM LPC Sexual Orientation Straight 08/17/2018 7: 56 AM LPC COVID-19 Exposure Response Date Recorded In the [...] Description 09/07/2024 10:00 AM CDT Office Visit [address] [place] [address] Fransisco Eddy MD [address] [place] [address] [address] [place] [address] 09/18/2024 2:00 PM CDT Virtual Visit [facility] [address] [place] [address] Shanna Vang PA-C [address] [place], [place] [address] 03/29/2025 3:40 PM CDT Office Visit [address] [phone] Alfreda Ray PA-C [address] [place] [address] 484012 documented as of this encounter Visit Diagnoses Not on filedocumented in this encounter Additional Health Concerns Infection Onset Date Last Indicated Resolved Time Rule Out COVID-19 05/08/2021 05/08/2021 05/09/2021 9:08 PM LPC Assessment Noted Time PHQ-9 Depression Total Score: 0 08/31/19 21 11:22 AM LPC documented as of this encounter Care Teams Business Center Representative Relationship Specialty Start Date End Date Esperanza Gatica MD PCP - General Family Practice 10/13/11 12/29/21 Alfreda Ray PA-C [address] [place] [address] 795712 PCP - General Family Medicine 12/30/21 [place] [address] [place] [address] Assigned PCP 09/29/20 07/31/22 Jesú[place] [address] [address] Assigned Musculoskeletal Provider 10/20/20 04/17/22 Alfreda Ray PA-C [address] [place] [address] 010222 Referring Physician Family Medicine 12/31/21 Katrin Orellana PA-C [address] [place] [address] 651925 Physician Supervising Appraiser Dermatology 12/31/21 Shanna Vang PA-C [address] 003644 Assigned Cancer Care Provider 01/10/22 Fransisco Eddy MD [address] [place] [address] 625205 Assigned Rheumatology Provider 05/09/22 [place] [address] [place]ARCIA [address] Assigned Pain Medication Provider 06/29/22 09/04/22 [place] [address] [place] GARCIA [address] Assigned PCP 08/15/22 08/28/22 Katrin Orellana PA-C [address] [place] [address] 017755 Assigned Surgical Provider 08/15/22 02/10/24 Cristina Hsieh, [facility] 3[address] [facility] [place] HERNANDEZ [address] Pharmacist Pharmacist 09/07/22 Alfreda Ray PA-C [address] [place] [address] Assigned Pain Medication Provider 09/05/22 09/10/23 Alfreda Ray PA-C [address] [place] [address] 065272 Assigned PCP 08/29/22 Cristina Hsieh, [facility] [address] [address] Assigned MTM Pharmacist 09/26/22 Dakota Tatum MD [address] [place] [address] Cardiovascular Disease 03/25/23 Dakota Tatum MD [address] [place] [address] Assigned Heart and Vascular Provider 05/01/23 [place] [address] [address], [facility] [address] [place] [address] Assigned Musculoskeletal Provider 04/12/24 documented as of this encounter
--- OUTSIDE RECORDS SUMMARY | 2024-07-28 12:40 | XMS_ITS | Encounter Summary ---
Author Organization [facility] Address [address] [place] [address] 11942 Care Team Providers Care Artillery Officer Name Role Phone Esperanza Gatica MD Primary Care Provider + Esperanza Gatica MD Unavailable +[phone] Esperanza Gatica MD Unavailable +[phone] Esperanza Gatica MD Unavailable +[phone] Esperanza Gatica MD Unavailable +[phone] Esperanza Gatica MD Unavailable +[phone] Esperanza Gatica MD Unavailable +[phone] Jesús Orourke MD Unavailable Alfrdea RayC Primary Care Provider + Alfreda Ray PA-C Unavailable + [phone] Katrin Orellana PA-C Unavailable [phone] Shanna VangC Unavailable +[phone] Fransisco Eddy MD Unavailable [phone] Esperanza Gatica MD Unavailable +[phone] Esperanza Gatica MD Unavailable +[phone] Katrin Orellana PA-C Unavailable Cristina Hsieh [facility] Unavailable Cory Alfreda Liu PA-C Unavailable Alfreda Ray Alexa KING Unavailable [phone] Cristina Hsieh [facility] Unavailable Dakota Tatum MD Unavailable Dakota Tatum MD Unavailable Srinivas Marie DO Unavailable [phone] Reason for Visit * Reason Onset Date Comments Refill Request 03/03/2014 Encounter Details Date Type Department Care Team (Late st Contact Info) Description 03/03/2014 MyC Refill [address], [address] [place] [address] [place] [address] [place] [address] Refill Request Social History Tobacco Use Types Packs/Day Years Used Date Smoking Tobacco: Former Cigarettes Q uit: 06/21/1973 Smokeless Tobacco: Former Alcohol Use Standard Drinks/Week Comments Yes 0 (1 standard drink = 0.6 oz pur e alcohol) rarely Comments No Sex and Gender Information Value Date Recorded Sex Assigned at Female 08/17/2018 7:56 AM ROLL CONTOUR GRINDER Legal Sex Female 4:24 AM ROLL CONTOUR GRINDER Gender Identity Female 08/17/2018 7:56 AM ROLL CONTOUR GRINDER Sexual Orientation Straight 08/17/2018 7: 56 AM ROLL CONTOUR GRINDER documented as of this encounter Plan of Treatment Upcoming Encounters Date Type Department Care Team (Late st Contact Info) Description 09/07/2024 10:00 AM CDT Office Visit [facility] [address] [address] Fransisco Eddy MD [address] [place] [address] 09/18/2024 2:00 PM CDT Virtual Visit [facility] [address] [place] [address] Shanna Vang PA-C [address] [place] [address] 03/29/2025 3:40 PM CDT Office Visit [address] [place] [address] Alfreda Ray PA-C [address] [place] [address] 326812 documented as of this encounter Visit Diagnoses Not on filedocumented in this encounter Additional Health Concerns Infection Onset Date Last Indicated Resolved Time Rule Out COVID-19 05/08/2021 05/08/2021 05/09/2021 9:08 PM ROLL CONTOUR GRINDER documented as of this encounter Care Teams Artillery Officer Relationship Specialty Start Date End Date Esperanza Gatica MD PCP - General Family Practice 10/13/11 12/29/21 [place] [address] [place] [address] PCP - Assigned PCP 12/05/17 08/23/18 Alfreda Ray PA-C [address] [place] [address] PCP - General Family Medicine 12/30/21 [place] [address] [place] GARCIA [address] Assigned PCP 12/05/17 09/30/19 [place] [address] [place] [address] Assigned PCP 10/01/19 03/02/20 [place] [address] [place] [address] Assigned PCP 03/03/20 05/25/20 [place] [address] [place] [address] Assigned PCP 05/26/20 09/28/20 [place] [address] [place] [address] Assigned PCP 09/29/20 07/31/22 Jesú[place] [address] [facility] [place] [address] Assigned Musculoskeletal Provider 10/20/20 04/17/22 Alfreda Ray PA-C [address] [place] [address] 203632 Referring Physician Family Medicine 12/31/21 Katrin Orellana PA-C [address] [place] [address] 98 [place], [place] 552425 Physician Waiter/Waitress Club Dermatology 12/31/21 Shanna Vang PA-C [address] [place] [address] 675194 Assigned Cancer Care Provider 01/10/22 Fransisco Eddy MD [address] [place] [address] 88 [place] [address] Assigned Rheumatology Provider 05/09/22 [place] [address] [place] [address] Assigned Pain Medication Provider 06/29/22 09/04/22 [place] [address] [place] [address] Assigned PCP 08/15/22 08/28/22 Katrin Orellana PA-C [address] [place] [address] Assigned Surgical Provider 08/15/22 02/10/24 Cristina Hsieh [facility] [address] [facility] L[place]BETH HERNANDEZ [address] Pharmacist Pharmacist 09/07/22 Alfreda Ray PA-C [address] [place] [address] Assigned Pain Medication Provider 09/05/22 09/10/23 Alfreda Ray PA-C [address] [place] [address] Assigned PCP 08/29/22 Cristina Hsieh [facility] [address] [phone] Assigned MTM Pharmacist 09/26/22 Dakota Tatum MD 6 [place] [address] Cardiovascular Disease 03/25/23 Dakota Tatum MD [address] [place] [address] 361005 Assigned Heart and Vascular Provider 05/01/23 [place] [address] CE[address]AST[address]UM, [address] [address]888[address] Assigned Musculoskeletal Provider 04/12/24 documented as of this encounter
--- OUTSIDE RECORDS SUMMARY | 2024-07-28 12:40 | XMS_ITS | Encounter Summary ---
Author Organization [facility] Address [address] [place] [address] Care Team Providers Care Warehouse Inventory Clerk Name Role Phone Esperanza Gatica MD Primary Care Provider + Esperanza Gatica MD Unavailable + Jesús Orourke MD Unavailable Alfreda Ray-C Primary Care Provider + Alfreda RayC Unavailable +260 Katrin Orellana PA-C Unavailable +[phone] Shanna Vang PA-C Unavailable +[phone] Fransisco Eddy MD Unavailable +[phone] Esperanza Gatica MD Unavailable + Esperanza Gatica MD Unavailable + Katrin OrellanaC Unavailable +[phone] Cristina Hsieh [facility] Unavailable +[phone] Alfreda Ray PA-C Unavailable +2600 Alfreda Ray PA-C Unavailable +2600 Cristina Hsieh [facility] Unavailable +[phone] Dakota Tatum MD Unavailable Dakota Tatum MD Unavailable + [phone] Srinivas Marie DO Unavailable [phone] Reason for Visit * Reason Onset Date Comments MyChart Communication 04/07/2021 Medication question-HCTZ Encounter Details Date Type Department Care Team (Late st Contact Info) Description 04/07/2021 MyC Medical Advice [facility] [address] [place] [address] [place] [address] [place] [address] MyChart Communication (Medication question... Social History [...] Sex Assigned at Female 08/17/2018 7:56 AM BOTANY PROFESSOR Legal Sex Female 4:24 AM BOTANY PROFESSOR Gender Identity Female 08/17/2018 7:56 AM BOTANY PROFESSOR Sexual Orientation Straight 08/17/2018 7: 56 AM BOTANY PROFESSOR COVID-19 Exposure Response Date Recorded In the [...] Visit [facility] [address] [address] Fransisco Eddy MD [address] [place] [address] 353595 09/18/2024 2:00 PM CDT Virtual Visit [facility] [address] [facility] [address] [place] [address] Shanna Vang PA-C [address] [place] [address] 03/29/2025 3:40 PM CDT Office Visit [address] [place] [phone] Alfreda Ray PA-C [address] [place] [address] 605012 documented as of this encounter Visit Diagnoses Not on filedocumented in this encounter Additional Health Concerns Infection Onset Date Last Indicated Resolved Time Rule Out COVID-19 05/08/2021 05/08/2021 05/09/2021 9:08 PM BOTANY PROFESSOR Assessment Noted Time PHQ-9 Depression Total Score: 0 08/31/19 21 11:22 AM BOTANY PROFESSOR documented as of this encounter Care Teams Warehouse Inventory Clerk Relationship Specialty Start Date End Date Esperanza Gatica MD PCP - General Family Practice 10/13/11 12/29/21 Alfreda Ray PA-C [address] [place] [address] 046502 PCP - General Family Medicine 12/30/21 [place] [address] [place] GARCIA [address] Assigned PCP 09/29/20 07/31/22 Jesú[place] [address] [place] [address] Assigned Musculoskeletal Provider 10/20/20 04/17/22 Alfreda Ray PA-C [address] [place] [address] 390762 Referring Physician Family Medicine 12/31/21 Katrin Orellana PA-C [address] 919645 Physician Fuel Cell Systems Engineer Dermatology 12/31/21 Shanna Vang PA-C [address] [phone] Assigned Cancer Care Provider 01/10/22 Fransisco Eddy MD [address] [place] [address] 496275 Assigned Rheumatology Provider 05/09/22 [place] [address] [place] [address] Assigned Pain Medication Provider 06/29/22 09/04/22 [place] [address] [place] [address] Assigned PCP 08/15/22 08/28/22 Katrin Orellana PA-C [address] [place] [address] 703495 Assigned Surgical Provider 08/15/22 02/10/24 Cristina Hsieh [facility] [address] [facility] LISBETH HERNANDEZ [phone] Pharmacist Pharmacist 09/07/22 Alfreda Ray PA-C [address] [place] [address] Assigned Pain Medication Provider 09/05/22 09/10/23 Alfreda Ray PA-C [address] [place] [address] Assigned PCP 08/29/22 Cristina Hsieh, [facility] [address] [phone] Assigned MTM Pharmacist 09/26/22 Dakota Tatum MD [address] [place] [address] 034765 Cardiovascular Disease 03/25/23 Dakota Tatum MD [address] [place] [address] 194835 Assigned Heart and Vascular Provider 05/01/23 [place] [address] [address] , [address] [address] Assigned Musculoskeletal Provider 04/12/24 documented as of this encounter
--- OUTSIDE RECORDS SUMMARY | 2024-07-28 12:40 | XMS_ITS | Encounter Summary ---
Author Organization [employer] Address [address] [place] [address] Care Team Providers Care Booking Police Officer Name Role Phone Esperanza Gatica MD Primary Care Provider + Esperanza Gatica MD Unavailable +[phone] Esperanza Gatica MD Unavailable +[phone] Esperanza Gatica MD Unavailable +[phone] Esperanza Gatica MD Unavailable +[phone] Esperanza Gatica MD Unavailable +[phone] Esperanza Gatica MD Unavailable +[phone] Jesús Orourke MD Unavailable Alfreda RayC Primary Care Provider + Alfreda Ray PA-C Unavailable + [phone] Katrin Orellana PA-C Unavailable +[phone] Shanna VangC Unavailable +[phone] Fransisco Eddy MD Unavailable +[phone] Esperanza Gatica MD Unavailable +[phone] Esperanza Gatica MD Unavailable +[phone] Katrin Orellana PA-C Unavailable +[phone] Cristina Hsieh [facility] Unavailable Cory Alfreda Liu PA-C Unavailable +[phone] Ho Raymustapha Liu PA-C Unavailable +[phone] Cristina Hsieh [facility] Unavailable Dakota Tatum MD Unavailable Dakota Tatum MD Unavailable [phone] Srinivas Marie DO Unavailable [phone] Reason for Visit * Reason Onset Date Comments Refill Request 10/13/2013 Atenolol 25mg Encounter Details Date Type Department Care Team (Late st Contact Info) Description 10/13/2013 MyC Refill [address], [address] [place] [address] [place] [address] [place] [address] Refill Request (Atenolol 25mg) Social History Tobacco Use Types Packs/Day Years Used Date Smoking Tobacco: Former Cigarettes Q uit: 06/21/1973 Smokeless Tobacco: Former Alcohol Use Standard Drinks/Week Comments Yes 0 (1 standard drink = 0.6 oz pur e alcohol) rarely Comments No Sex and Gender Information Value Date Recorded Sex Assigned at Female 08/17/2018 7:56 AM VICE PRESIDENT RESEARCH Legal Sex Female 4:24 AM VICE PRESIDENT RESEARCH Gender Identity Female 08/17/2018 7:56 AM VICE PRESIDENT RESEARCH Sexual Orientation Straight 08/17/2018 7: 56 AM VICE PRESIDENT RESEARCH documented as of this encounter Miscellaneous Notes * Telephone Encounter - Leigha Rinaldi RN - 10/16/2013 11:17 AM CDT Last Office Visit R/T Diagnosis: 07/14/2013 BP Readings from Last 3 Encounters: 07/14/13 122/60 11/08/12 112/60 06/23/12 104/60 Medication approved per standing orders. Leigha Rinaldi RN * Telephone Encounter - Leigha Rinaldi RN - 10/16/2013 11:16 AM [facility] Original authorizing provider: MD Alxeandria Brannon would like a refill of the following medications: atenolol (TENORMIN) 25 MG tablet [Esperanza Gatica MD] Preferred pharmacy: [id number] Comment: I asked for a refill [...] CDT Office Visit [facility] [address] 200 [place] [phone] Fransisco Eddy MD [address] [place] [address] 88 [place] [address] 09/18/2024 2:00 PM CDT Virtual Visit [facility] [address] 105 [place] [address] Shanna Vang PA-C [address] [address] 03/29/2025 3:40 PM CDT Office Visit [address] [phone] Alfreda Ray PA-C [address] [place] [address] 619042 documented as of this encounter Visit Diagnoses Diagnosis HTN (hypertension), benign Essential hypertension, benign documented in this encounter Additional Health Concerns Infection Onset Date Last Indicated Resolved Time Rule Out COVID-19 05/08/2021 05/08/2021 05/09/2021 9:08 PM VICE PRESIDENT RESEARCH documented as of this encounter Care Teams Booking Police Officer Relationship Specialty Start Date End Date Esperanza Gatica MD PCP - General Family Practice 10/13/11 12/29/21 [place] [address] LISBETH GARCIA [address] PCP - Assigned PCP 12/05/17 08/23/18 Alfreda Ray PA-C [address] [place] [address] 28525 PCP - General Family Medicine 12/30/21 [place] [address] LISBETH GARCIA [address] Assigned PCP 12/05/17 09/30/19 [place] [address] L[place] GARCIA [address]14 Assigned PCP 10/01/19 03/02/20 [place] [address] LISB[place] GARCIA 31443 Assigned PCP 03/03/20 05/25/20 [place] [address] L[place] GARCIA 30196 Assigned PCP 05/26/20 09/28/20 [place] [address] [place] [id number] Assigned PCP 09/29/20 07/31/22 [place] [address] [place] [address] [address] Assigned Musculoskeletal Provider 10/20/20 04/17/22 Alfreda Ray PA-C [address] [place] [address] Referring Physician Family Medicine 12/31/21 Katrin Orellana PA-C [address] [place] [address] Physician Assembler Erector Dermatology 12/31/21 Shanna Vang PA-C [address] [address] Assigned Cancer Care Provider 01/10/22 Fransisco Eddy MD [address] [place] [address] Assigned Rheumatology Provider 05/09/22 [place] [address] [place] [id number] Assigned Pain Medication Provider 06/29/22 09/04/22 [place] [address] [place] [address] Assigned PCP 08/15/22 08/28/22 Katrin Orellana PA-C [address] [place] [address]208 Assigned Surgical Provider 08/15/22 02/10/24 Cristina Hsieh [facility] 3305 [facility] LISBETH HERNANDEZ [address] Pharmacist Pharmacist 09/07/22 Alfreda Ray PA-C [address] [place] [address] 483592 Assigned Pain Medication Provider 09/05/22 09/10/23 Alfreda Ray PA-C [address] [place] [address] 069722 Assigned PCP 08/29/22 Cristina Hsieh [facility] [address] [place] [address] Assigned MTM Pharmacist 09/26/22 Dakota Tatum MD [address] [place] [address] 85368 Cardiovascular Disease 03/25/23 Dakota Tatum MD [address] [place] [address] 97090 Assigned Heart and Vascular Provider 05/01/23 [place] [address] [place] [address] [address] Assigned Musculoskeletal Provider 04/12/24 documented as of this encounter
--- OUTSIDE RECORDS SUMMARY | 2024-07-28 12:40 | XMS_ITS | Encounter Summary ---
Author Organization [employer] Address [address] [place] [address] Care Team Providers Care Self Propelled Hot Mix Roller Operator Name Role Phone Esperanza Gatica MD Primary Care Provider + Esperanza Gatica MD Unavailable +[phone] Esperanza Gatica MD Unavailable +[phone] Esperanza Gatica MD Unavailable +[phone] Esperanza Gatica MD Unavailable +[phone] Esperanza Gatica MD Unavailable +[phone] Esperanza Gatica MD Unavailable +[phone] Jesús Orourke MD Unavailable Alfreda RayC Primary Care Provider + Alfreda Ray PA-C Unavailable + [phone] Katrin Orellana PA-C Unavailable +[phone] Shanna VangC Unavailable +[phone] Fransisco Eddy MD Unavailable +[phone] Esperanza Gatica MD Unavailable +[phone] Esperanza Gatica MD Unavailable +[phone] Katrin Orellana PA-C Unavailable Cristina Hsieh [facility] Unavailable Cory Alfreda Liu PA-C Unavailable +[phone] Ho Raymustapha Liu PA-C Unavailable +[phone] Cristina Hsieh [facility] Unavailable +[phone] Dakota Tatum MD Unavailable Dakota Tatum MD Unavailable [phone] Srinivas Marie DO Unavailable [phone] Reason for Visit * Reason Onset Date Comments Refill Request 11/08/2013 Tramadol 50mg Encounter Details Date Type Department Care Team (Late st Contact Info) Description 11/08/2013 MyC Refill [address], [facility] 100 [place] [address] [place] [address] [place] [address] Refill Request (Tramadol 50mg) Social History Tobacco Use Types Packs/Day Years Used Date Smoking Tobacco: Former Cigarettes Q uit: 06/21/1973 Smokeless Tobacco: Former Alcohol Use Standard Drinks/Week Comments Yes 0 (1 standard drink = 0.6 oz pur e alcohol) rarely Comments No Sex and Gender Information Value Date Recorded Sex Assigned at Female 08/17/2018 7:56 AM COORDINATING PRODUCER Legal Sex Female 4:24 AM COORDINATING PRODUCER Gender Identity Female 08/17/2018 7:56 AM COORDINATING PRODUCER Sexual Orientation Straight 08/17/2018 7: 56 AM COORDINATING PRODUCER documented as of this encounter Miscellaneous Notes [...] [id number] - [address] Comment: documented in this encounter Plan of Treatment Upcoming Encounters Date Type Department Care Team (Late st Contact Info) Description 09/07/2024 10:00 AM CDT Office Visit [facility] [address] 200 [place] [phone] Fransisco Eddy MD [address] [place] [address] 88 [place] [address] 09/18/2024 2:00 PM CDT Virtual Visit [facility] [address] [place] [address] 105 [place] [address] Shanna Vang, PAFilemonC [address] [place] [address] 237234 03/29/2025 3:40 PM CDT Office Visit [address] [phone] Alfreda Ray PA-C [address] [place] [address] 144942 documented as of this encounter Visit Diagnoses Diagnosis HTN (hypertension), benign Essential hypertension, benign documented in this encounter Additional Health Concerns Infection Onset Date Last Indicated Resolved Time Rule Out COVID-19 05/08/2021 05/08/2021 05/09/2021 9:08 PM COORDINATING PRODUCER documented as of this encounter Care Teams Self Propelled Hot Mix Roller Operator Relationship Specialty Start Date End Date Esperanza Gatica MD PCP - General Family Practice 10/13/11 12/29/21 [place] [address] [place] [address] PCP - Assigned PCP 12/05/17 08/23/18 Alfreda Ray PA-C [address] [place] [address] PCP - General Family Medicine 12/30/21 [place] [address] [place] [address] Assigned PCP 12/05/17 09/30/19 [place] [address] [place] [address] Assigned PCP 10/01/19 03/02/20 [place] [address] [place] [address] Assigned PCP 03/03/20 05/25/20 [place] [address] [place] [address] Assigned PCP 05/26/20 09/28/20 [place] [address] [place] [address] Assigned PCP 09/29/20 07/31/22 Jesú[place] [address] [facility] [address] [place] [address] Assigned Musculoskeletal Provider 10/20/20 04/17/22 Alfreda Ray PA-C [address] [place] [address] Referring Physician Family Medicine 12/31/21 Katrin Orellana PA-C [address] [place] [address] 410475 Physician Pediatric Ophthalmologist Dermatology 12/31/21 Shanna Vang PA-C [address] 086724 Assigned Cancer Care Provider 01/10/22 Fransisco Eddy MD [address] [place] [address] 456755 Assigned Rheumatology Provider 05/09/22 [place] [address] [place] [address] Assigned Pain Medication Provider 06/29/22 09/04/22 [place] [address] [place] [address] Assigned PCP 08/15/22 08/28/22 Katrin Orellana PA-C [address] [place] [address]164 Assigned Surgical Provider 08/15/22 02/10/24 Cristina Hsieh [facility] 3305 [facility] LISBETH HERNANDEZ [address] Pharmacist Pharmacist 09/07/22 Alfreda Ray PA-C [address] [place] [address] 796592 Assigned Pain Medication Provider 09/05/22 09/10/23 Alfreda Ray PA-C [address] [place] [address] 478082 Assigned PCP 08/29/22 Cristina Hsieh [facility] [address] [address] Assigned MTM Pharmacist 09/26/22 Dakota Tatum MD [address] [place] [address]77 Cardiovascular Disease 03/25/23 Dakota Tatum MD [address] [place] [address] Assigned Heart and Vascular Provider 05/01/23 [place] [address] [place] , [facility] 300 [place] [address] Assigned Musculoskeletal Provider 04/12/24 documented as of this encounter
--- OUTSIDE RECORDS SUMMARY | 2024-07-28 12:40 | XMS_ITS | Encounter Summary ---
Author Organization [place] Address [address] [place] [address]14 Care Team Providers Care Flosser Name Role Phone Esperanza Gatica MD Primary Care Provider + Esperanza Gatica MD Unavailable +[phone] Esperanza Gatica MD Unavailable +[phone] Esperanza Gatica MD Unavailable +[phone] Esperanza Gatica MD Unavailable +534 Esperanza Gatica MD Unavailable +[phone] Esperanza Gatica MD Unavailable +[phone] Jesús Orourke MD Unavailable Alfreda RayC Primary Care Provider + Alfreda Ray PA-C Unavailable + [phone] Katrin Orellana PA-C Unavailable [phone] Shanna VangC Unavailable +[phone] Fransisco Eddy MD Unavailable +[phone] Esperanza Gatica MD Unavailable +[phone] Esperanza Gatica MD Unavailable +[phone] Katrin Orellana PA-C Unavailable Cristina Hsieh [facility] Unavailable RayAlfreda PA-C Unavailable [phone] Cory Alfreda Liu PA-C Unavailable +[phone] Cristina Hsieh [facility] Unavailable Dakota Tatum MD Unavailable Dakota Tatum MD Unavailable [phone] Srinivas Marie DO Unavailable [phone] Reason for Visit * Reason Onset Date Comments Refill Request 12/19/2013 [place], Lisinopri l-HCTZ Encounter Details Date Type Department Care Team (Late st Contact Info) Description 12/19/2013 MyC Refill M [address], [address] [place] [address] [place] [address] [place] [address] Refill Request ([place], Lisinopril-HCTZ) Social History Tobacco Use Types Packs/Day Years Used Date Smoking Tobacco: Former Cigarettes Q uit: 06/21/1973 Smokeless Tobacco: Former Alcohol Use Standard Drinks/Week Comments Yes 0 (1 standard drink = 0.6 oz pur e alcohol) rarely Comments No Sex and Gender Information Value Date Recorded Sex Assigned at Female 08/17/2018 7:56 AM ASTRONOMY TEACHER Legal Sex Female 4:24 AM ASTRONOMY TEACHER Gender Identity Female 08/17/2018 7:56 AM ASTRONOMY TEACHER Sexual Orientation Straight 08/17/2018 7: 56 AM ASTRONOMY TEACHER documented as of this encounter Miscellaneous [...] RN - 12/19/2013 10:21 AM [facility] Original authorizing provider: MD Alexandria Brannon would like a refill of the following medications: HYDROcodone-acetaminophen (NORCO) 5-325 MG per tablet [Esperanza Gatica MD] Preferred pharmacy: [facility] [address] [place] [address] Comment: Dr. Gatica is my Doctor. Medication renewals requested in this message routed to other providers: lisinopril-hydrochlorothiazide (PRINZIDE,ZESTORETIC) 10-12.5 MG per tablet [Royer Brumfield MD] documented in this encounter Plan of Treatment Upcoming Encounters Date Type Department Care Team (Late st Contact Info) Description 09/07/2024 10:00 AM CDT Office Visit [facility] [address] 200 [place] [phone] Fransisco Eddy MD [address] [place] [address] 88 [place], [place] 374825 09/18/2024 2:00 PM CDT Virtual Visit [facility] [place] [address] 105 [place] [phone] Shanna Vang, PAFilemonC [address] [place] [address] 443864 03/29/2025 3:40 PM CDT Office Visit [address] [address] Alfreda Ray PA-C [address] [place] [address] documented as of this encounter Visit Diagnoses Diagnosis Osteoarthritis Osteoarthrosis, unspecified whether generalized or localized, unspecified site HTN (hypertension), benign Essential hypertension, benign documented in this encounter Additional Health Concerns Infection Onset Date Last Indicated Resolved Time Rule Out COVID-19 05/08/2021 05/08/2021 05/09/2021 9:08 PM ASTRONOMY TEACHER documented as of this encounter Care Teams Flosser Relationship Specialty Start Date End Date Esperanza Gatica MD PCP - General Family Practice 10/13/11 12/29/21 [place] [address] [place]ISB[place] GARCIA [address] PCP - Assigned PCP 12/05/17 08/23/18 Alfreda aRy PA-C [address] [place] [address] 813032 PCP - General Family Medicine 12/30/21 [place] [address] [place] GARCIA [address] Assigned PCP 12/05/17 09/30/19 [place] [address] [place] GARCIA [address] Assigned PCP 10/01/19 03/02/20 [place] [address] [place] [address] Assigned PCP 03/03/20 05/25/20 [place] [address] [place] [address] Assigned PCP 05/26/20 09/28/20 [place] [address] [place] [address] Assigned PCP 09/29/20 07/31/22 [place] [address] [address] [facility] [place] [address] Assigned Musculoskeletal Provider 10/20/20 04/17/22 Alfreda Ray PA-C [address] [place] [address] 784442 Referring Physician Family Medicine 12/31/21 Katrin Orellana PA-C [address] [place] [address] 98 [place], [place] 749285 Physician Transmitter Operator Dermatology 12/31/21 Shanna Vang PA-C [address] [place] [address] 702744 Assigned Cancer Care Provider 01/10/22 Fransisco Eddy MD [address] [place] [address] 994665 Assigned Rheumatology Provider 05/09/22 [place] [address] [place] [address] Assigned Pain Medication Provider 06/29/22 09/04/22 [place] [address] [place] [address] Assigned PCP 08/15/22 08/28/22 Katrin Orellana PA-C [address] [place] [address] 98 [place], [place] 079525 Assigned Surgical Provider 08/15/22 02/10/24 Cristina Hsieh [facility] 3305 [facility] LISBETH HERNANDEZ [address] Pharmacist Pharmacist 09/07/22 Alfreda Ray PA-C [address] [place] [address] 464942 Assigned Pain Medication Provider 09/05/22 09/10/23 Alfreda Ray PA-C [address] [place] [address] Assigned PCP 08/29/22 Cristina Hsieh [facility] [address] [id number] Assigned MTM Pharmacist 09/26/22 Dakota Tatum MD 516 [place] [address] Cardiovascular Disease 03/25/23 Dakota Tatum MD [address] [place] [address] Assigned Heart and Vascular Provider 05/01/23 [place] [address] [facility], [address] [address] Assigned Musculoskeletal Provider 04/12/24 documented as of this encounter
--- OUTSIDE RECORDS SUMMARY | 2024-07-28 12:40 | XMS_ITS | Encounter Summary ---
Author Organization [place] Address [address] [place] [address] Care Team Providers Care Lap Hand Tool Name Role Phone Alfreda Ray PA-C Primary Care Provider + Alfreda Ray PA-C Unavailable [phone] Katrin Orellana PA-C Unavailable [phone] Shanna Vang PA-C Unavailable +[phone] Fransisco Eddy MD Unavailable +[phone] Katrin Orellana PA-C Unavailable [phone] Cristina Hsieh [facility] Unavailable [phone] Alfreda Ray PA-C Unavailable + [phone] Alfreda Ray PA-C Unavailable + [phone] Cristina Hsieh [facility] Unavailable [phone] Dakota Tatum MD Unavailable + [phone] Dakota Tatum MD Unavailable + [phone] Srinivas Marie DO Unavailable [phone] Encounter Details Date Type Department Care Team (Late st Contact Info) Description 08/11/2023 MyC Medical Advice [facility] [address] [place] [phone] Gruendemann, Lecora Social History Tobacco Use [...] Sex Assigned at Female 08/17/2018 7:56 AM BEHAVIORAL HEALTH THERAPIST Legal Sex Female 4:24 AM BEHAVIORAL HEALTH THERAPIST Gender Identity Female 08/17/2018 7:56 AM BEHAVIORAL HEALTH THERAPIST Sexual Orientation Straight 08/17/2018 7: 56 AM BEHAVIORAL HEALTH THERAPIST documented as of this encounter Plan of Treatment Upcoming Encounters Date Type Department Care Team (Late st Contact Info) Description 09/07/2024 10:00 AM CDT Office Visit [facility] [place] [address] [facility] 200 [place] [phone] Fransisco Eddy MD [address] [place] [address] 88 [place] [address] 09/18/2024 2:00 PM CDT Virtual Visit [facility] [address] [place] [address] 105 [place] [phone] Shanna Vang PA-C [address] [place] [address] 03/29/2025 3:40 PM CDT Office Visit [address] [address] Alfreda Ray PA-C [address] [place] [address] 938862 documented as of this encounter Visit Diagnoses Not on filedocumented in this encounter Additional Health Concerns Assessment Noted Time PHQ-9 Depression Total Score: 5 03/09/20 23 10:57 AM CDT documented as of this encounter Care Teams Lap Hand Tool Relationship Specialty Start Date End Date Alfreda Ray PA-C [address] [place] [address] 17265 PCP - General Family Medicine 12/30/21 Alfreda Ray PA-C [address] [place] [address] Referring Physician Family Medicine 12/31/21 Katrin Orellana PA-C [address] [facility] 98 [place], [place] 433385 Physician Weather Algorithm Scientist Dermatology 12/31/21 Shanna Vang PA-C [address] [place], [place] 301764 Assigned Cancer Care Provider 01/10/22 Fransisco Eddy MD 515 [facility] 88 [place], [place] 897095 Assigned Rheumatology Provider 05/09/22 Katrin Orellana PA-C [address] [facility] 98 [place], [place] 944115 Assigned Surgical Provider 08/15/22 02/10/24 Cristina Hsieh [facility] 3305 [facility] L[place]BETH [place]DEZ [address] Pharmacist Pharmacist 09/07/22 Alfreda Ray PA-C [address] [place] [address] 452192 Assigned Pain Medication Provider 09/05/22 09/10/23 Alfreda Ray PA-C [address] [place] [address] 506162 Assigned PCP 08/29/22 Cristina Hsieh [facility] [address] [address] Assigned MTM Pharmacist 09/26/22 Dakota Tatum MD 516 [place] [address] Cardiovascular Disease 03/25/23 Dakota Tatum MD 516 [place] [address] Assigned Heart and Vascular Provider 05/01/23 [place] [address] [facility], [address] [address] Assigned Musculoskeletal Provider 04/12/24 documented as of this encounter
--- OUTSIDE RECORDS SUMMARY | 2024-07-28 12:40 | XMS_ITS | Encounter Summary ---
Author Organization [place] Address [address] [place] [address] Care Team Providers Care Verify Rep Name Role Phone Esperanza Gatica MD Primary Care Provider + Esperanza Gatica MD Unavailable + Jesús Orourke MD Unavailable Alfread Ray-C Primary Care Provider + Alfreda RayC Unavailable +[phone] Katrin Orellana PA-C Unavailable +[phone] Shanna Vang PA-C Unavailable +[phone] Fransisco Eddy MD Unavailable +[phone] Esperanza Gatica MD Unavailable + Esperanza Gatica MD Unavailable + Katrin OrellanaC Unavailable +[phone] Cristina Hsieh [facility] Unavailable +[phone] Alfreda Ray PA-C Unavailable +[phone] Alfreda Ray PA-C Unavailable +[phone] Cristina Hsieh [facility] Unavailable +[phone] Dakota Tatum MD Unavailable Dakota Tatum MD Unavailable +[phone] Srinivas Marie Unavailable +[phone] Encounter Details Date Type Department Care Team (Late Contact Info) Description 04/09/2021 MyC Medical Advice [facility] [address] [place] [address] [place] [address] [place] [address] Social History Tobacco Use Types [...] Sex Assigned at Female 08/17/2018 7:56 AM EMANATIONS ANALYSIS TECHNICIAN Legal Sex Female 4:24 AM EMANATIONS ANALYSIS TECHNICIAN Gender Identity Female 08/17/2018 7:56 AM EMANATIONS ANALYSIS TECHNICIAN Sexual Orientation Straight 08/17/2018 7: 56 AM EMANATIONS ANALYSIS TECHNICIAN COVID-19 Exposure Response Date Recorded In [...] Visit [facility] [place] [address] [facility] 200 [place] [address] Fransisco Eddy MD [address] [place] [address] 88 [place] [address] 09/18/2024 2:00 PM CDT Virtual Visit [facility] [address] [place] [address] Shanna Vang PA-C [address] [place] [address] 03/29/2025 3:40 PM CDT Office Visit [address] [address] Alfreda Ray PA-C [address] [place] [address] 233622 documented as of this encounter Visit Diagnoses Not on filedocumented in this encounter Additional Health Concerns Infection Onset Date Last Indicated Resolved Time Rule Out COVID-19 05/08/2021 05/08/2021 05/09/2021 9:08 PM EMANATIONS ANALYSIS TECHNICIAN Assessment Noted Time PHQ-9 Depression Total Score: 0 08/31/19 21 11:22 AM EMANATIONS ANALYSIS TECHNICIAN documented as of this encounter Care Teams Verify Rep Relationship Specialty Start Date End Date Esperanza Gatica MD PCP - General Family Practice 10/13/11 12/29/21 Alfreda Ray PA-C [address] [place] [address] PCP - General Family Medicine 12/30/21 [place] [address] [place] [address] Assigned PCP 09/29/20 07/31/22 Jesú[place] [address] [place] [address] Assigned Musculoskeletal Provider 10/20/20 04/17/22 Alfreda Rya PA-C [address] [place] [address] Referring Physician Family Medicine 12/31/21 Katrin Orellana PA-C [address] [place] [address] Physician Chopping Machine Operator Dermatology 12/31/21 Shanna Vang PA-C [address] [address] Assigned Cancer Care Provider 01/10/22 Fransisco Eddy MD [address] [place] [address] Assigned Rheumatology Provider 05/09/22 [place] [address] [place] [address] Assigned Pain Medication Provider 06/29/22 09/04/22 [place] [address] [place] [address] Assigned PCP 08/15/22 08/28/22 Katrin Orellana PA-C [address] [place] [address] Assigned Surgical Provider 08/15/22 02/10/24 Cristina Hsieh [facility] 3[address] [facility] LISBETH HERNANDEZ [address] Pharmacist Pharmacist 09/07/22 Alfreda Ray PA-C [address] [place] [address] Assigned Pain Medication Provider 09/05/22 09/10/23 Alfreda Ray PA-C [address] [place] [address] Assigned PCP 08/29/22 Cristina Hsieh, [facility] [address] [place] [address] Assigned MTM Pharmacist 09/26/22 Dakota Tatum MD [address] [place] [address] Cardiovascular Disease 03/25/23 Dakota Tatum MD [address] [place] [address] Assigned Heart and Vascular Provider 05/01/23 [place] [address] CE[address] GAST[address]UM, [address] [address] Assigned Musculoskeletal Provider 04/12/24 documented as of this encounter
--- OUTSIDE RECORDS SUMMARY | 2024-07-28 12:40 | XMS_ITS | Encounter Summary ---
Author Organization [place] Address [address] [place] [address] Care Team Providers Care Hair Rooting Machine Operator Name Role Phone Esperanza Gatica MD Primary Care Provider + Esperanza Gatica MD Unavailable +[phone] Esperanza Gatica MD Unavailable +192 Esperanza Gatica MD Unavailable +092 Esperanza Gatica MD Unavailable +627 Esperanza Gatica MD Unavailable +334 Esperanza Gatica MD Unavailable +[phone] Jesús Orourke MD Unavailable Alfreda RayC Primary Care Provider + Alfreda Ray PA-C Unavailable + [phone] Katrin Orellana PA-C Unavailable +[phone] Shanna VangC Unavailable +[phone] Fransisco Eddy MD Unavailable +[phone] Esperanza Gatica MD Unavailable +[phone] Esperanza Gatica MD Unavailable +[phone] Katrin Orellana PA-C Unavailable [phone] Cristina Hsieh [facility] Unavailable RayAlfreda PA-C Unavailable +[phone] Cory Alfreda Liu PA-C Unavailable +[phone] Cristina Hsieh [facility] Unavailable +[phone] Dakota Tatum MD Unavailable Dakota Tatum MD Unavailable [phone] Srinivas Marie DO Unavailable [phone] Reason for Visit * Reason Onset Date Comments Refill Request 09/23/2013 Lisinopril-HCTZ Encounter Details Date Type Department Care Team (Late st Contact Info) Description 09/23/2013 MyC [place] [address], [address] [place] [address] [place] [address] [place] [address] Refill Request (Lisinopril-HCTZ) Social History Tobacco Use Types Packs/Day Years Used Date Smoking Tobacco: Former Cigarettes Q uit: 06/21/1973 Smokeless Tobacco: Former Alcohol Use Standard Drinks/Week Comments Yes 0 (1 standard drink = 0.6 oz pur e alcohol) rarely Comments No Sex and Gender Information Value Date Recorded Sex Assigned at Female 08/17/2018 7:56 AM TIRE REBUILDER Legal Sex Female 4:24 AM TIRE REBUILDER Gender Identity Female 08/17/2018 7:56 AM TIRE REBUILDER Sexual Orientation Straight 08/17/2018 7: 56 AM TIRE REBUILDER documented as of this encounter Miscellaneous Notes [...] RN - 09/25/2013 7:51 AM [facility] Original authorizing provider: MD Alexandria Triplett would like a refill of the following medications: lisinopril-hydrochlorothiazide (PRINZIDE,ZESTORETIC) 10-12.5 MG per tablet [Royer Brumfield MD] Preferred pharmacy: [id number] Comment: Sent from my iPad documented in this encounter Plan of Treatment Upcoming Encounters Date Type Department Care Team (Late st Contact Info) Description 09/07/2024 10:00 AM CDT Office Visit [facility] [address] 200 [place] [address] Fransisco Eddy MD [address] [place] [address] 09/18/2024 2:00 PM CDT Virtual Visit [facility] [address] 105 [place] [address] Shanna Vang PA-C [address] [address] 03/29/2025 3:40 PM CDT Office Visit [facility] [address] [place] [address] [place] [address] Alfreda Ray PA-C [address] [place] [address] 808642 documented as of this encounter Visit Diagnoses Diagnosis HTN (hypertension), benign- Primary Essential hypertension, benign documented in this encounter Additional Health Concerns Infection Onset Date Last Indicated Resolved Time Rule Out COVID-19 05/08/2021 05/08/2021 05/09/2021 9:08 PM TIRE REBUILDER documented as of this encounter Care Teams Hair Rooting Machine Operator Relationship Specialty Start Date End Date Esperanza Gatica MD PCP - General Family Practice 10/13/11 12/29/21 [place] [address] [place] [address] PCP - Assigned PCP 12/05/17 08/23/18 Alfreda Ray PA-C [address] [place] [address] PCP - General Family Medicine 12/30/21 [place] [address] [place] GARCIA [address] Assigned PCP 12/05/17 09/30/19 [place] [address] [address] [address] Assigned PCP 10/01/19 03/02/20 [place] [address] [address] [address] Assigned PCP 03/03/20 05/25/20 [place] [address] [place] [address] Assigned PCP 05/26/20 09/28/20 [place] [address] [address]IA [address] Assigned PCP 09/29/20 07/31/22 Jesú[place] [address] [place] [address] Assigned Musculoskeletal Provider 10/20/20 04/17/22 Alfreda Ray PA-C [address] [place] [address] 460812 Referring Physician Family Medicine 12/31/21 Katrin Orellana PA-C [address] [place] [address] 98 [place], [place] 662435 Physician Operations Team Leader Dermatology 12/31/21 Shanna Vang PA-C [address] [phone] Assigned Cancer Care Provider 01/10/22 Fransisco Eddy MD [address] [place] [address] 072925 Assigned Rheumatology Provider 05/09/22 [place] [address] [address] [address] Assigned Pain Medication Provider 06/29/22 09/04/22 [place] [address] [address] [place]ARC[place] [address] Assigned PCP 08/15/22 08/28/22 Katrin Orellana PA-C [address] [place] [address] 752705 Assigned Surgical Provider 08/15/22 02/10/24 Cristina Hsieh [facility] 3305 [facility] LISBETH HERNANDEZ [address] Pharmacist Pharmacist 09/07/22 Alfreda Ray PA-C [address] [place] [address] 049962 Assigned Pain Medication Provider 09/05/22 09/10/23 Alfreda Ray PA-C [address] [place] [address] 509702 Assigned PCP 08/29/22 Cirstina Hsieh [facility] [address] [place] [address] Assigned MTM Pharmacist 09/26/22 Dakota Tatum MD [address] [place] [address] Cardiovascular Disease 03/25/23 Dakota Tatum MD [address] [place] [address] Assigned Heart and Vascular Provider 05/01/23 [place] [address] [address] Assigned Musculoskeletal Provider 04/12/24 documented as of this encounter
--- OUTSIDE RECORDS SUMMARY | 2024-07-28 12:40 | XMS_ITS | Encounter Summary ---
Author Organization [place] Address [address] [place] [address] Care Team Providers Care Sales Support Coordinator Name Role Phone Esperanza Gatica MD Primary Care Provider + Esperanza Gatica MD Unavailable +[phone] Esperanza Gatica MD Unavailable +603 Esperanza Gatica MD Unavailable +398 Esperanza Gatica MD Unavailable +555 Esperanza Gatica MD Unavailable +594 Esperanza Gatica MD Unavailable +[phone] Jesús Orourke MD Unavailable Alfreda RayC Primary Care Provider + Alfreda Ray PA-C Unavailable + [phone] Katrin Orellana PA-C Unavailable [phone] Shanna VangC Unavailable +[phone] Fransisco Eddy MD Unavailable +[phone] Esperanza Gatica MD Unavailable +[phone] Esperanza Gatica MD Unavailable +[phone] Katrin Orellana PA-C Unavailable Cristina Hsieh [facility] Unavailable Cory Alfreda Liu PA-C Unavailable +[phone] Ho Raymustapha Liu PA-C Unavailable +[phone] Cristina Hsieh [facility] Unavailable +[phone] Dakota Tatum MD Unavailable [phone] Dakota Tatum MD Unavailable [phone] Srinivas Marie DO Unavailable Reason for Visit * Reason Onset Date Comments Back Pain 10/20/2013 ortho referral Encounter Details Date Type Department Care Team (Late st Contact Info) Description 10/20/2013 MyC Medical Advice [address], [address] [place] [address] [place] [address] [place] [address] Back Pain (ortho referral) Social History Tobacco Use Types Packs/Day Years Used Date Smoking Tobacco: Former Cigarettes Q uit: 06/21/1973 Smokeless Tobacco: Former Alcohol Use Standard Drinks/Week Comments Yes 0 (1 standard drink = 0.6 oz pur e alcohol) rarely Comments No Sex and Gender Information Value Date Recorded Sex Assigned at Female 08/17/2018 7:56 AM BODILY INJURY ADJUSTER Legal Sex Female 4:24 AM BODILY INJURY ADJUSTER Gender Identity Female 08/17/2018 7:56 AM BODILY INJURY ADJUSTER Sexual Orientation Straight 08/17/2018 7: 56 AM BODILY INJURY ADJUSTER documented as of this encounter Miscellaneous Notes [...] 09/07/2024 10:00 AM CDT Office Visit [facility] [place] 6525 [facility] 200 [place] [address] Fransisco Eddy MD [address] [place] [address] 88 [place] [address] 09/18/2024 2:00 PM CDT Virtual Visit [facility] [address] [place] [address] 105 [place] [address] Shanna Vang PA-C [address] [place] [address] 03/29/2025 3:40 PM CDT Office Visit [address] [place] [address] Alfreda Ray PA-C [address] [place] [address] 575562 documented as of this encounter Visit Diagnoses Not on filedocumented in this encounter Additional Health Concerns Infection Onset Date Last Indicated Resolved Time Rule Out COVID-19 05/08/2021 05/08/2021 05/09/2021 9:08 PM BODILY INJURY ADJUSTER documented as of this encounter Care Teams Sales Support Coordinator Relationship Specialty Start Date End Date Esperanza Gatica MD PCP - General Family Practice 10/13/11 12/29/21 [place] [address] [place] [address] PCP - Assigned PCP 12/05/17 08/23/18 Alfreda Ray PA-C [facility] [place] [address] PCP - General Family Medicine 12/30/21 [place] [address] [address] [place] [address] Assigned PCP 12/05/17 09/30/19 [place] [address] [address] [place] [address] Assigned PCP 10/01/19 03/02/20 [place] [address] [place] [address] Assigned PCP 03/03/20 05/25/20 [place] [address] [place] [address] Assigned PCP 05/26/20 09/28/20 [place] [address] [place] [address] Assigned PCP 09/29/20 07/31/22 Jesú[place] [address] [place] [address] Assigned Musculoskeletal Provider 10/20/20 04/17/22 Alfreda Ray PA-C 4151 [place] [address] Referring Physician Family Medicine 12/31/21 Katrin Orellana PA-C [address] [facility] 98 [place] [address] Physician Clinical Laboratory Manager Dermatology 12/31/21 Shanna Vang PA-C [address] [place] [address] 590564 Assigned Cancer Care Provider 01/10/22 Fransisco Eddy MD [address] [place] [address] 258585 Assigned Rheumatology Provider 05/09/22 [place] [address] [place] [address] Assigned Pain Medication Provider 06/29/22 09/04/22 [place] [address] [place] [address] Assigned PCP 08/15/22 08/28/22 Katrin Orellana PA-C [address] [place] [address] Assigned Surgical Provider 08/15/22 02/10/24 Cristina Hsieh [facility] [address] [facility] L[place]BETH [place] [address] Pharmacist Pharmacist 09/07/22 Alfreda Ray PA-C [address] [place] [address] Assigned Pain Medication Provider 09/05/22 09/10/23 Alfreda Ray PA-C [address] [place] [address] Assigned PCP 08/29/22 Cristina Hsieh [facility] 1600 [facility] 101 [place] [address] Assigned MTM Pharmacist 09/26/22 Dakota Tatum MD [address] [place] [address] 430945 Cardiovascular Disease 03/25/23 Dakota Tatum MD [address] [place] [address] 689765 Assigned Heart and Vascular Provider 05/01/23 [place] [address] CE[address], [facility] [address] [place] [address] Assigned Musculoskeletal Provider 04/12/24 documented as of this encounter
--- OUTSIDE RECORDS SUMMARY | 2024-07-28 12:40 | XMS_ITS | Encounter Summary ---
Author Organization [place] Address [address] [place] [address] Care Team Providers Care Packager And Strapper Name Role Phone Esperanza Gatica MD Primary Care Provider + Esperanza Gatica MD Unavailable +591 Esperanza Gatica MD Unavailable +[phone] Esperanza Gatica MD Unavailable +[phone] Esperanza Gatica MD Unavailable +767 Esperanza Gatica MD Unavailable +609 Esperanza Gatica MD Unavailable +[phone] Jesús Orourke MD Unavailable Alfreda RayC Primary Care Provider + Alfreda Ray PA-C Unavailable + [phone] Katrin Orellana PA-C Unavailable +[phone] Shanna VangC Unavailable +[phone] Fransisco Eddy MD Unavailable +[phone] Esperanza Gatica MD Unavailable +[phone] Esperanza Gatica MD Unavailable +[phone] Katrin Orellana PA-C Unavailable Cristina Hsieh [facility] Unavailable RayAlfreda PA-C Unavailable +[phone] Cory Alfreda Liu PA-C Unavailable +[phone] Cristnia Hsieh [facility] Unavailable Dakota Tatum MD Unavailable +[phone] Dakota Tatum MD Unavailable [phone] Srinivas Marie DO Unavailable [phone] Reason for Visit * Reason Onset Date Comments Refill Request 03/03/2014 Tramadol, Trazod one Encounter Details Date Type Department Care Team (Late st Contact Info) Description 03/03/2014 MyC Refill [address], [address] [place] [address] [place] [address] [place] [address] Refill Request (Tramadol, Trazodone) Social History Tobacco Use Types Packs/Day Years Used Date Smoking Tobacco: Former Cigarettes Q uit: 06/21/1973 Smokeless Tobacco: Former Alcohol Use Standard Drinks/Week Comments Yes 0 (1 standard drink = 0.6 oz pur e alcohol) rarely Comments No Sex and Gender Information Value Date Recorded Sex Assigned at Female 08/17/2018 7:56 AM QUESTIONED DOCUMENTS EXAMINER Legal Sex Female 4:24 AM QUESTIONED DOCUMENTS EXAMINER Gender Identity Female 08/17/2018 7:56 AM QUESTIONED DOCUMENTS EXAMINER Sexual Orientation Straight 08/17/2018 7: 56 AM QUESTIONED DOCUMENTS EXAMINER documented as of this encounter Miscellaneous Notes [...] RN - 03/05/2014 7:53 AM CD[facility]Message [facility]: Original authorizing provider: MD [place] Triplett would like a refill of the following medications: traMADol (ULTRAM) 50 MG tablet [Royer Brumfield MD] Preferred pharmacy: [id number] Comment: Medication renewals requested in this message routed to other providers: traZODone (DESYREL) 50 MG tablet [Esperanza Gatica MD] documented in this encounter Plan of Treatment Upcoming Encounters Date Type Department Care Team (Late st Contact Info) Description 09/07/2024 10:00 AM CDT Office Visit [facility] [address] [address] Fransisco Eddy MD [address] [place] [address] 88 [place], [place] [address] 09/18/2024 2:00 PM CDT Virtual Visit [facility] [address] [place] [address] 105 [place] [address] Shanna Vang, PARobinson [address] [place] [address] 03/29/2025 3:40 PM CDT Office Visit [address] [phone] [place]a Ray PA-C [address] [place] [address] 354122 documented as of this encounter Visit Diagnoses Diagnosis HTN (hypertension), benign Essential hypertension, benign Insomnia, unspecified documented in this encounter Additional Health Concerns Infection Onset Date Last Indicated Resolved Time Rule Out COVID-19 05/08/2021 05/08/2021 05/09/2021 9:08 PM QUESTIONED DOCUMENTS EXAMINER documented as of this encounter Care Teams Packager And Strapper Relationship Specialty Start Date End Date Esperanza Gatica MD PCP - General Family Practice 10/13/11 12/29/21 [place] [address] [address] [address] PCP - Assigned PCP 12/05/17 08/23/18 Alfreda Ray PA-C [address] [place] [address] PCP - General Family Medicine 12/30/21 [place] [address] [address] [address] Assigned PCP 12/05/17 09/30/19 [place] [address] [address] [address] Assigned PCP 10/01/19 03/02/20 [place] [address] [address]ARCIA [address] Assigned PCP 03/03/20 05/25/20 [place] [address] [address] [address] Assigned PCP 05/26/20 09/28/20 [place] [address] [place] [address] Assigned PCP 09/29/20 07/31/22 [place] [address] [place] [address] [place] [address] Assigned Musculoskeletal Provider 10/20/20 04/17/22 Alfreda Ray PA-C [address] [place] [address] Referring Physician Family Medicine 12/31/21 Katrin Orellana PA-C [address] [place] [address] Physician Property Custodian Dermatology 12/31/21 Shanna Vang PA-C [address] [address] Assigned Cancer Care Provider 01/10/22 Fransisco Eddy MD [address] [place] [address] Assigned Rheumatology Provider 05/09/22 [place] [address] [address] [address] Assigned Pain Medication Provider 06/29/22 09/04/22 [place] [address] [address]ARC[place] [address] Assigned PCP 08/15/22 08/28/22 Katrin Orellana PA-C [address] [place] [address] 227[address] Assigned Surgical Provider 08/15/22 02/10/24 Cristina Hsieh [place] [address] [facility] [place] [address] Pharmacist Pharmacist 09/07/22 Alfreda Ray PA-C [address] [place] [address] 523272 Assigned Pain Medication Provider 09/05/22 09/10/23 Alfreda Ray PA-C [address] [place] [address] 540902 Assigned PCP 08/29/22 Cristnia Hsieh [place] [address] [place] [address] Assigned MTM Pharmacist 09/26/22 Dakota Tatum MD [address] [place] [address] Cardiovascular Disease 03/25/23 Dakota Tatum MD [address] [place] [address] 842125 Assigned Heart and Vascular Provider 05/01/23 [place] [address] [facility] [address] [place] [address] Assigned Musculoskeletal Provider 04/12/24 documented as of this encounter
--- OUTSIDE RECORDS SUMMARY | 2024-07-28 12:40 | XMS_ITS | Encounter Summary ---
Author Organization [facility] Address [address] [place] [address] Care Team Providers Care Devulcanizer Tender Name Role Phone Esperanza Gatica MD Primary Care Provider + Esperanza Gatica MD Unavailable +[phone] Esperanza Gatica MD Unavailable +[phone] Esperanza Gatica MD Unavailable +[phone] Esperanza Gatica MD Unavailable +[phone] Esperanza Gatica MD Unavailable +[phone] Esperanza Gatica MD Unavailable +[phone] Jesús Orourke MD Unavailable Alfreda RayC Primary Care Provider + Alfreda Ray PA-C Unavailable + [phone] Katrin Orellana PA-C Unavailable +[phone] Shanna VangC Unavailable +[phone] Fransisco Eddy MD Unavailable +[phone] Esperanza Gatica MD Unavailable +[phone] Esperanza Gatica MD Unavailable +[phone] Katrin Orellana PA-C Unavailable Cristina Hsieh [facility] Unavailable Ho Rayumstapha Liu PA-C Unavailable +[phone] Alfreda Ray Alexa KING Unavailable +[phone] Cristina Hsieh [facility] Unavailable +[phone] Dakota Tatum MD Unavailable [phone] Dakota Tatum MD Unavailable [phone] Srinivas Marie DO Unavailable [phone] Reason for Visit * Reason Onset Date Comments Refill Request 01/07/2014 tramadol Encounter Details Date Type Department Care Team (Late st Contact Info) Description 01/07/2014 MyC Refill [address], [address] [place] [address] [place] [address] [place] [address] Refill Request (tramadol) Social History Tobacco Use Types Packs/Day Years Used Date Smoking Tobacco: Former Cigarettes Q uit: 06/21/1973 Smokeless Tobacco: Former Alcohol Use Standard Drinks/Week Comments Yes 0 (1 standard drink = 0.6 oz pur e alcohol) rarely Comments No Sex and Gender Information Value Date Recorded Sex Assigned at Female 08/17/2018 7:56 AM BENCH WORKER BINDING Legal Sex Female 4:24 AM BENCH WORKER BINDING Gender Identity Female 08/17/2018 7:56 AM BENCH WORKER BINDING Sexual Orientation Straight 08/17/2018 7: 56 AM BENCH WORKER BINDING documented as of this encounter Miscellaneous Notes * Telephone Encounter - Diane Macedo RN - 01/08/2014 8:09 AM CDT Does not meet standard requirement for RN refill protocol. Medication: tramadol Last OV: 10/24/13 Provider: MD ZAIDA Reason for visit: SI joint dysfunction, etc... Last refill: 12/11/13 #30 Please refill if appropriate. Thank you! Diane Macedo RN [facility] Work [employer] * Telephone Encounter - Diane Macedo RN - 01/08/2014 8:08 AM CDT Message from embraase: Original authorizing provider: Esperanza Gatica MD Alexandria Fregoso Cococecy would like a refill of the following medications: traMADol (ULTRAM) 50 MG tablet [Esperanza Gatica MD] Preferred pharmacy: [id number] Comment: Medication renewals requested in this message routed to other providers: zolpidem (AMBIEN) 10 MG tablet [Royer Brumfield MD] documented in this encounter Plan of Treatment Upcoming Encounters Date Type Department Care Team (Late st Contact Info) Description 09/07/2024 10:00 AM CDT Office Visit [facility] [address] [place] [address] Fransisco Eddy MD [address] [place] [address] 045855 09/18/2024 2:00 PM CDT Virtual Visit [facility] [place] [address] 105 [place] [address] Shanna Vang PA-C [address] [place] [address] 03/29/2025 3:40 PM CDT Office Visit [facility] [address] [place] [address] [place] [phone] Alfreda Ray PA-C [address] [place] [address] 737322 documented as of this encounter Visit Diagnoses Diagnosis HTN (hypertension), benign Essential hypertension, benign documented in this encounter Additional Health Concerns Infection Onset Date Last Indicated Resolved Time Rule Out COVID-19 05/08/2021 05/08/2021 05/09/2021 9:08 PM BENCH WORKER BINDING documented as of this encounter Care Teams Devulcanizer Tender Relationship Specialty Start Date End Date Esperanza Gatica MD PCP - General Family Practice 10/13/11 12/29/21 [place] [address] [place] [address] PCP - Assigned PCP 12/05/17 08/23/18 Alfreda Ray PA-C [address] [place] [address] PCP - General Family Medicine 12/30/21 [place] [address] [place] [address] Assigned PCP 12/05/17 09/30/19 [place] [address] [place] [address] Assigned PCP 10/01/19 03/02/20 [place] [address] [place] [address] Assigned PCP 03/03/20 05/25/20 [place] [address] [place] [address] Assigned PCP 05/26/20 09/28/20 [place] [address] [address] [address] Assigned PCP 09/29/20 07/31/22 [place] [address] [place] [address] Assigned Musculoskeletal Provider 10/20/20 04/17/22 Alfreda Ray PA-C [address] [place] [address] 518132 Referring Physician Family Medicine 12/31/21 Katrin Orellana PA-C [address] [place] [address] 98 [place], [place] 150385 Physician Scuba Diver Dermatology 12/31/21 Shanna Vang PA-C [address] [phone] Assigned Cancer Care Provider 01/10/22 Fransisco Eddy MD [address] [place] [address] 366815 Assigned Rheumatology Provider 05/09/22 [place] [address] [address] [address] Assigned Pain Medication Provider 06/29/22 09/04/22 [place] [address] [address] [address] Assigned PCP 08/15/22 08/28/22 Katrin Orellana PA-C [address] [facility] 98 [place] [address] Assigned Surgical Provider 08/15/22 02/10/24 Cristina Hsieh [facility] [address] [facility] [place] [address] Pharmacist Pharmacist 09/07/22 Alfreda Ray PA-C [address] [place] [address] 624242 Assigned Pain Medication Provider 09/05/22 09/10/23 Alfreda Ray PA-C [address] [place] [address] 667942 Assigned PCP 08/29/22 Cristina Hsieh [facility] [address] [address] Assigned MTM Pharmacist 09/26/22 Dakota Tatum MD [address] [place] [address]363 Cardiovascular Disease 03/25/23 Dakota Tatum MD [address] [place] [address] Assigned Heart and Vascular Provider 05/01/23 [place] [address] [address] [address] Assigned Musculoskeletal Provider 04/12/24 documented as of this encounter
--- OUTSIDE RECORDS SUMMARY | 2024-07-28 12:41 | XMS_ITS | Encounter Summary ---
Author Organization [facility] Address [address] [place] [address] Care Team Providers Care Internal Grinder Name Role Phone Alfreda Ray PA-C Primary Care Provider + Alfreda Ray PA-C Unavailable [phone] Katrin Orellana PA-C Unavailable [phone] Shanna Vang PA-C Unavailable +[phone] Fransisco Eddy MD Unavailable +[phone] Katrin Orellana PA-C Unavailable [phone] Cristina Hsieh [facility] Unavailable [phone] Alfreda Ray PA-C Unavailable + [phone] Alfreda Ray PA-C Unavailable [phone] Cristina Hsieh [facility] Unavailable [phone] Dakota Tatum MD Unavailable + [phone] Dakota Tatum MD Unavailable + [phone] Srinivas Marie DO Unavailable [phone] Reason for Visit * Reason Comments Medication Refill METHOTREXATE 50 MG/2 ML VIAL Encounter Details Date Type Department Care Team (Late st Contact Info) Description 06/20/2023 Refill [facility] Specialty [address] [address] Fransisco Eddy MD [address] [place] [address] [phone] Medication Refill (METHOTREXATE 50 MG/2 ML VIAL) [...] Assigned at Female 08/17/2018 7:56 AM MANAGER COUNTRY Legal Sex Female 4:24 AM MANAGER COUNTRY Gender Identity Female 08/17/2018 7:56 AM MANAGER COUNTRY Sexual Orientation Straight 08/17/2018 7: 56 AM MANAGER COUNTRY documented as of this encounter Miscellaneous Notes * Telephone Encounter - Fransisco Eddy MD - 06/25/2023 5:14 PM MANAGER COUNTRY Apologize for confusion engendered by last note and clinic visit. I expected methotrexate to have been discontinued now that patient is receiving Actemra. GER COUNTRY * Telephone Encounter - Lynne Levy RN - 06/25/2023 1:34 PM CST METHOTREXATE 50 MG/2 ML VIAL Last Written Prescription Date: not on active med list Discontinued Therapy completed (No AVS) Cristina Hsieh, [facility] 03/04/23 1338 Last Office Visit: [...] documentation of discontinue med found in note. GER COUNTRY documented in this encounter Plan of Treatment Upcoming Encounters Date Type Department Care Team (Late st Contact Info) Description 09/07/2024 10:00 AM CDT Office Visit [facility] [address] [place] [address] Fransisco Eddy MD [address] [place] [address] 584205 09/18/2024 2:00 PM CDT Virtual Visit [facility] [address] [place] [phone] Shanna Vang PA-C [address] [address] 03/29/2025 3:40 PM CDT Office Visit [address] [place] [phone] Alfreda Ray PA-C [address] [place] [place] [address] 651062 documented as of this encounter Visit Diagnoses Not on filedocumented in this encounter Additional Health Concerns Assessment Noted Time PHQ-9 Depression Total Score: 5 03/09/20 23 10:57 AM CDT documented as of this encounter Care Teams Internal Grinder Relationship Specialty Start Date End Date Alfreda Ray PA-C [address] [place] [address] PCP - General Family Medicine 12/30/21 Alfreda Ray PA-C [address] [place] [address] Referring Physician Family Medicine 12/31/21 Katrin Orellana PA-C [address] [place] [address] 294885 Physician Crosscutter Dermatology 12/31/21 Shanna Vang PA-C [address] [place], [place] 165724 Assigned Cancer Care Provider 01/10/22 Fransisco Eddy MD [address] [place] [address] 049865 Assigned Rheumatology Provider 05/09/22 Katrin Orellana PA-C [address] [place] [address] 031215 Assigned Surgical Provider 08/15/22 02/10/24 Cristina Hsieh [facility] [address] [place] [address] Pharmacist Pharmacist 09/07/22 Alfreda Ray PA-C [address] [place] [address] Assigned Pain Medication Provider 09/05/22 09/10/23 Alfreda Ray PA-C [address] [place] [address] Assigned PCP 08/29/22 Cristina Hsieh, [facility] [address] [place] [address] Assigned MTM Pharmacist 09/26/22 Dakota Tatum MD [address] [place] [address] Cardiovascular Disease 03/25/23 Dakota Tatum MD [address] [place] [address] Assigned Heart and Vascular Provider 05/01/23 [place] [address] [address] Assigned Musculoskeletal Provider 04/12/24 documented as of this encounter
--- OUTSIDE RECORDS SUMMARY | 2024-07-28 12:41 | XMS_ITS | Encounter Summary ---
Author Organization [facility] Address [address] [place] [address] Care Team Providers Care Social Work Administrator Name Role Phone Esperanza Gatica MD Primary Care Provider + Esperanza Gatica MD Unavailable + Jesús Orourke MD Unavailable Alfreda Ray-C Primary Care Provider + Alfreda RayC Unavailable +[phone] Katrin Orellana PA-C Unavailable +[phone] Shanna Vang PA-C Unavailable +[phone] Fransisco Eddy MD Unavailable +[phone] Esperanza Gatica MD Unavailable + Esperanza Gatica MD Unavailable + Katrin OrellanaC Unavailable +[phone] Cristina Hsieh [facility] Unavailable +[phone] Alfreda Ray PA-C Unavailable +[phone] Alfreda Ray PA-C Unavailable +[phone] Cristina Hsieh [facility] Unavailable +[phone] Dakota Tatum MD Unavailable Dakota Tatum MD Unavailable +[phone] Srinivas Marie DO Unavailable [phone] Encounter Details Date Type Department Care Team (Late st Contact Info) Description 06/16/2021 MyC Medical Advice [facility] [address] [place] [phone] [place] [address] [place] [address] Social History Tobacco Use Types [...] Assigned at Female 08/17/2018 7:56 AM MACHINE HOSTLER Legal Sex Female 4:24 AM MACHINE HOSTLER Gender Identity Female 08/17/2018 7:56 AM MACHINE HOSTLER Sexual Orientation Straight 08/17/2018 7: 56 AM MACHINE HOSTLER documented as of this encounter Plan of Treatment Upcoming Encounters Date Type Department Care Team (Late st Contact Info) Description 09/07/2024 10:00 AM CDT Office Visit [facility] [address] 200 [place] [phone] Fransisco Eddy MD [address] [place] [address] 88 [place] [address] 09/18/2024 2:00 PM CDT Virtual Visit [facility] [place] [address] 105 [place] [phone] Shanna Vang, PAFilemonC [address] [place] [address] 03/29/2025 3:40 PM CDT Office Visit [address] [phone] Alfreda Ray PA-C [address] [place] [address] 739662 documented as of this encounter Visit Diagnoses Not on filedocumented in this encounter Additional Health Concerns Assessment Noted Time PHQ-9 Depression Total Score: 0 08/31/19 21 11:22 AM MACHINE HOSTLER documented as of this encounter Care Teams Social Work Administrator Relationship Specialty Start Date End Date Esperanza Gatica MD PCP - General Family Practice 10/13/11 12/29/21 Alfreda Ray PA-C [address] [place] [address] 782052 PCP - General Family Medicine 12/30/21 [place] [address] [facility] [place] [address] Assigned PCP 09/29/20 07/31/22 Jesú[place] [address] [address] Assigned Musculoskeletal Provider 10/20/20 04/17/22 Alfreda Ray PA-C [address] [address] 192682 Referring Physician Family Medicine 12/31/21 Katrin Orellana PA-C [address] [place] [address] Physician Medical Support Assistant Dermatology 12/31/21 Shanna Vang PA-C [address] 409854 Assigned Cancer Care Provider 01/10/22 Fransisco Eddy MD [address] [place] [address] 869595 Assigned Rheumatology Provider 05/09/22 [place] [address] [place] [address] Assigned Pain Medication Provider 06/29/22 09/04/22 [place] [address] [place] [address] Assigned PCP 08/15/22 08/28/22 Katrin Orellana PA-C [address] [place] [address] Assigned Surgical Provider 08/15/22 02/10/24 Cristina Hsieh [facility] [address] [place] [address] [place] [address] Pharmacist Pharmacist 09/07/22 Alfreda Ray PA-C [address] [address] 241042 Assigned Pain Medication Provider 09/05/22 09/10/23 Alfreda Ray PA-C [address] [place] [address] 369872 Assigned PCP 08/29/22 Cristina Hsieh, [facility] [address] [facility] 101 [place] [address] Assigned MTM Pharmacist 09/26/22 Dakota Tatum MD [address] [place] [address] 470405 Cardiovascular Disease 03/25/23 Dakota Tatum MD [address] [place] [address] 129655 Assigned Heart and Vascular Provider 05/01/23 [place] [address] [address], [facility] [address] [place] [address] Assigned Musculoskeletal Provider 04/12/24 documented as of this encounter
--- OUTSIDE RECORDS SUMMARY | 2024-07-28 12:41 | XMS_ITS | Encounter Summary ---
Author Organization [facility] Address [address] [place] [address] Care Team Providers Care Set Up / Operator Name Role Phone Esperanza Gatica MD Primary Care Provider + Esperanza Gatica MD Unavailable + Jesús Orourke MD Unavailable Alfreda Ray-C Primary Care Provider + Alfreda RayC Unavailable +[phone] Katrin Orellana PA-C Unavailable +[phone] Shanna Vang PA-C Unavailable +[phone] Fransisco Eddy MD Unavailable +[phone] Esperanza Gatica MD Unavailable + Esperanza Gatica MD Unavailable + Katrin OrellanaC Unavailable +[phone] Cristina Hsieh [facility] Unavailable +[phone] Alfreda Ray PA-C Unavailable +[phone] Alfreda Ray PA-C Unavailable +[phone] Crsitina Hsieh [facility] Unavailable +[phone] Dakota Tatum MD Unavailable Dakota Tatum MD Unavailable +[phone] Srinivas Marie DO Unavailable [phone] Encounter Details Date Type Department Care Team (Late Contact Info) Description 01/02/2021 MyC Medical Advice [facility] [address] [place] [address] [place] [address] [place] [address] Social History Tobacco Use Types [...] Sex Assigned at Female 08/17/2018 7:56 AM PLY CUTTER Legal Sex Female 4:24 AM PLY CUTTER Gender Identity Female 08/17/2018 7:56 AM PLY CUTTER Sexual Orientation Straight 08/17/2018 7: 56 AM PLY CUTTER COVID-19 Exposure Response Date Recorded In the last month, have you been in contact with someone who was confirmed or suspected to have Coronavirus / COVID-19? No / Unsure 12/31/2020 8:35 AM CDT documented as of this encounter Plan of Treatment Upcoming Encounters Date Type Department Care Team (Late Contact Info) Description 09/07/2024 10:00 AM CDT Office Visit [facility] [place] [address] [facility] 200 [place] [address] Fransisco Eddy MD [address] [place] [address] 88 [place] [address] 09/18/2024 2:00 PM CDT Virtual Visit [facility] [address] [place] [address] Shanna Vang PA-C [address] [place] [address] 03/29/2025 3:40 PM CDT Office Visit [address] [address] Alfreda Ray PA-C [address] [place] [address] 875202 documented as of this encounter Visit Diagnoses Not on filedocumented in this encounter Additional Health Concerns Infection Onset Date Last Indicated Resolved Time Rule Out COVID-19 05/08/2021 05/08/2021 05/09/2021 9:08 PM PLY CUTTER Assessment Noted Time PHQ-9 Depression Total Score: 0 08/31/19 21 11:22 AM PLY CUTTER documented as of this encounter Care Teams Set Up / Operator Relationship Specialty Start Date End Date Esperanza Gatica MD PCP - General Family Practice 10/13/11 12/29/21 Alfreda Ray PA-C [address] [place] [address] PCP - General Family Medicine 12/30/21 [place] [address] [place] [address] Assigned PCP 09/29/20 07/31/22 [place] [address] [place] [address] Assigned Musculoskeletal Provider 10/20/20 04/17/22 Alfreda Ray PA-C [address] [place] [address] Referring Physician Family Medicine 12/31/21 Katrin Orellana PA-C [address] [place] [address] Physician Store Operations Specialist Dermatology 12/31/21 Shanna Vang PA-C [address] [address] Assigned Cancer Care Provider 01/10/22 Fransisco Eddy MD [address] [place] [address] Assigned Rheumatology Provider 05/09/22 [place] [address] [place] [address] Assigned Pain Medication Provider 06/29/22 09/04/22 [place] [address] [place] [address] Assigned PCP 08/15/22 08/28/22 Katrin Orellana PA-C [address] [place] [address] Assigned Surgical Provider 08/15/22 02/10/24 Cristina Hsieh [facility] [address] [facility] [place]Z [address] Pharmacist Pharmacist 09/07/22 Alfreda Ray PA-C [address] [place] [address] Assigned Pain Medication Provider 09/05/22 09/10/23 Alfreda Ray PA-C [address] [place] [address] Assigned PCP 08/29/22 Cristina Hsieh, [facility] [address] [place] [address] Assigned MTM Pharmacist 09/26/22 Dakota Tatum MD [address] [place] [address] Cardiovascular Disease 03/25/23 Dakota Tatum MD [address] [place] [address] Assigned Heart and Vascular Provider 05/01/23 [place] [address] [address], [address] [address] Assigned Musculoskeletal Provider 04/12/24 documented as of this encounter
--- OUTSIDE RECORDS SUMMARY | 2024-07-28 12:41 | XMS_ITS | Encounter Summary ---
Author Organization [place] Address [address] [place] [address] Care Team Providers Care Block Breaker Operator Name Role Phone Alfreda Ray PA-C Primary Care Provider + Alfreda Ray PA-C Unavailable +[phone] Katrin Orellana PA-C Unavailable +[phone] Shanna Vang PA-C Unavailable +[phone] Fransisco Eddy MD Unavailable +[phone] Katrin Orellana PA-C Unavailable [phone] Cristina Hsieh [facility] Unavailable +[phone] Alfreda Ray PA-C Unavailable + [phone] Alfreda Ray PA-C Unavailable + [phone] Cristina Hsieh [facility] Unavailable +[phone] Dakota Tatum MD Unavailable + [phone] Dakota Tatum MD Unavailable + [phone] Srinivas Marie DO Unavailable [phone] Encounter Details Date Type Department Care Team (Late st Contact Info) Description 06/16/2023 [facility] [address] [place] [address] Shanna Vang PA-C [address] [place] [address] Social History Tobacco Use Types Packs/Day Years [...] in an abandoned building, in an overnight mcfp, or couch-surfing.) Yes 05/18/2023 Are you worried [...] Sex Assigned at Female 08/17/2018 7:56 AM STILL RUNNER Legal Sex Female 4:24 AM STILL RUNNER Gender Identity Female 08/17/2018 7:56 AM STILL RUNNER Sexual Orientation Straight 08/17/2018 7: 56 AM STILL RUNNER documented as of this encounter Plan of Treatment Upcoming Encounters Date Type Department Care Team (Late st Contact Info) Description 09/07/2024 10:00 AM CDT Office Visit [facility] [address] 200 [place] [phone] Fransisco Eddy MD [address] [place] [address] 88 [place] [address] 09/18/2024 2:00 PM CDT Virtual Visit [facility] [place] [address] 105 [place] [address] Shanna Vang, FERNANDO [address] [address] 03/29/2025 3:40 PM CDT Office Visit [address] [address] Alfreda Ray PA-C [address] [place] [address] 297152 documented as of this encounter Visit Diagnoses Not on filedocumented in this encounter Additional Health Concerns Assessment Noted Time PHQ-9 Depression Total Score: 5 03/09/20 23 10:57 AM CDT documented as of this encounter Care Teams Block Breaker Operator Relationship Specialty Start Date End Date Alfreda Ray PA-C [address] [place] [address] 356322 PCP - General Family Medicine 12/30/21 Alfreda Ray PA-C [address] [place] [address] Referring Physician Family Medicine 12/31/21 Katrin Orellana PA-C [address] [place] [address] Physician Application Systems Engineer Dermatology 12/31/21 Shanna Vang PA-C [address] [place] [address] Assigned Cancer Care Provider 01/10/22 Fransisco Eddy MD [address] [place] [address] Assigned Rheumatology Provider 05/09/22 Katrin Orellana PA-C [address] [place] [address]9610 Assigned Surgical Provider 08/15/22 02/10/24 Cristina Hsieh [facility] [address] [place] [address] [place] [address] Pharmacist Pharmacist 09/07/22 Alfreda Ray PA-C [address] [place] [address] 28330 Assigned Pain Medication Provider 09/05/22 09/10/23 Alfreda Ray PA-C [address] [place] [address] Assigned PCP 08/29/22 Cristina Hsieh [facility] [address] [address] Assigned MTM Pharmacist 09/26/22 Dakota Tatum MD [address] [place] [address] Cardiovascular Disease 03/25/23 Dakota Tatum MD [address] [place] [address] Assigned Heart and Vascular Provider 05/01/23 [place] [address] CLEE GASTELUM, [facility] [address] [place] [address] Assigned Musculoskeletal Provider 04/12/24 documented as of this encounter
--- OUTSIDE RECORDS SUMMARY | 2024-07-28 12:41 | XMS_ITS | Encounter Summary ---
Author Organization [facility] Address [address] [place] [address] Care Team Providers Care Critical Care Unit Manager Name Role Phone Alfreda Ray PA-C Primary Care Provider + Alfreda Ray PA-C Unavailable +[phone] Katrin Orellana PA-C Unavailable [phone] Shanna Vang PA-C Unavailable +[phone] Fransicso Eddy MD Unavailable +[phone] Katrin Orellana PA-C Unavailable +[phone] Cristina Hsieh [facility] Unavailable +[phone] Alfreda Ray PA-C Unavailable + [phone] Alfreda Ray PA-C Unavailable + [phone] Cristina Hsieh [facility] Unavailable +[phone] Dakota Tatum MD Unavailable + [phone] Dakota Tatum MD Unavailable + [phone] Srinivas Marie DO Unavailable [phone] Encounter Details Date Type Department Care Team (Late st Contact Info) Description 07/21/2023 [facility] Medical Advice [facility] [address] [place] [address] Gruendemann, Lecora Social History Tobacco Use [...] in an overnight halfway, or couch-surfing.) Yes 05/18/2023 Are you worried [...] Sex Assigned at Female 08/17/2018 7:56 AM WARE SERVER Legal Sex Female 4:24 AM WARE SERVER Gender Identity Female 08/17/2018 7:56 AM WARE SERVER Sexual Orientation Straight 08/17/2018 7: 56 AM WARE SERVER documented as of this encounter Plan of Treatment Upcoming Encounters Date Type Department Care Team (Late st Contact Info) Description 09/07/2024 10:00 AM CDT Office Visit [facility] [place] 6525 [facility] 200 [place] [phone] Fransisco Eddy MD [address] [place] [address] 88 [place] [address] 09/18/2024 2:00 PM CDT Virtual Visit [facility] [address] [place] [address] 105 [place] [phone] Shanna Vang PA-C [address] [place] [address] 03/29/2025 3:40 PM CDT Office Visit [address] [address] Alfreda Ray PA-C [address] [place] [address] 769192 documented as of this encounter Visit Diagnoses Not on filedocumented in this encounter Additional Health Concerns Assessment Noted Time PHQ-9 Depression Total Score: 5 03/09/20 23 10:57 AM CDT documented as of this encounter Care Teams Critical Care Unit Manager Relationship Specialty Start Date End Date Alfreda Ray PA-C [address] [place] [address] PCP - General Family Medicine 12/30/21 Alfreda Ray PA-C [address] [place] [address] Referring Physician Family Medicine 12/31/21 Katrin Orellana PA-C 420 [facility] 98 [place], [place] 9[address] Physician Hair Dryer Dermatology 12/31/21 Shanna Vang PA-C [address] [place], [place] 6439[address] Assigned Cancer Care Provider 01/10/22 Fransisco Eddy MD 515 [facility] 88 [place], [place] 926[address] Assigned Rheumatology Provider 05/09/22 Katrin Orellana PA-C 420 [facility] 98 [place], [place] 920[address] Assigned Surgical Provider 08/15/22 02/10/24 Cristina Hsieh [facility] [address] [facility] [place]BETH HERNANDEZ [address] Pharmacist Pharmacist 09/07/22 Alfreda Ray PA-C [address] [place] [address] 068492 Assigned Pain Medication Provider 09/05/22 09/10/23 Alfreda Ray PA-C [address] [place] [address] 512932 Assigned PCP 08/29/22 Cristina Hsieh [facility] [address] [address] Assigned MTM Pharmacist 09/26/22 Dakota Tatum MD 516 [place] [address] Cardiovascular Disease 03/25/23 Dakoat Tatum MD 516 [place] [address] Assigned Heart and Vascular Provider 05/01/23 [place] [address] [facility], [address] [address] Assigned Musculoskeletal Provider 04/12/24 documented as of this encounter
--- OUTSIDE RECORDS SUMMARY | 2024-07-28 12:41 | XMS_ITS | Encounter Summary ---
Author Organization [place] Address [address] [place] [address] Care Team Providers Care Emergency Care Attendant Name Role Phone Alfreda Ray PA-C Primary Care Provider + Alfreda Ray PA-C Unavailable +[phone] Katrin Orellana PA-C Unavailable [phone] Shanna Vang PA-C Unavailable +[phone] Fransisco Eddy MD Unavailable +[phone] Katrin Orellana PA-C Unavailable +[phone] Cristina Hsieh [facility] Unavailable +[phone] Alfreda Ray PA-C Unavailable + [phone] Alfreda Ray PA-C Unavailable +[phone] Cristina Hsieh [facility] Unavailable +[phone] Dakota Tatum MD Unavailable + [phone] Dakota Tatum MD Unavailable + [phone] Srinivas Marie DO Unavailable Reason for Visit * Reason Onset Date Comments [facility] 07/24/2023 Encounter Details Date Type Department Care Team (Late st Contact Info) Description 07/24/2023 [facility] [address] [phone] Alfreda Ray PA-C 4[address] [place], [place] 433082 [facility] Social History Tobacco Use Types [...] Assigned at Female 08/17/2018 7:56 AM SENIOR ANALYST DEVELOPER Legal Sex Female 4:24 AM SENIOR ANALYST DEVELOPER Gender Identity Female 08/17/2018 7:56 AM SENIOR ANALYST DEVELOPER Sexual Orientation Straight 08/17/2018 7: 56 AM SENIOR ANALYST DEVELOPER documented as of this encounter Miscellaneous Notes * Telephone Encounter - Idania Stokes - 07/29/2023 11:40 AM CST Talked to patient who set up a virtual to do form with provider. VV was set up 08/19/23 Idania Mcmahon OR ANALYST DEVELOPER * Telephone Encounter - Sarina Stevens - 07/29/2023 11:05 AM CST Alorum message sent to patient advising of Alfreda Ray's message below. OR ANALYST DEVELOPER * Telephone Encounter - Alfreda Ray PA-C - 07/28/2023 4:46 PM SENIOR ANALYST DEVELOPER Images from the original note were not included. Video or in person visit to document & complete paperwork. Please assist with scheduling. Can mail to her to take to DMV or mail in. Alfreda Ray MBA, MS, PAR[facility]inson [facility] OR ANALYST DEVELOPER * Telephone Encounter - Fadumo Storey RN - 07/27/2023 12:58 PM CST Please see my chart message and advise. Thanks Does patient need appointment? In person or virtual? Last office visit was 05/25/23 OR ANALYST DEVELOPER documented in this encounter Plan of Treatment Upcoming Encounters Date Type Department Care Team (Late st Contact Info) Description 09/07/2024 10:00 AM CDT Office Visit [facility] [address] [place] [phone] Fransisco Eddy MD 515 [facility] 88 [place] [address] 09/18/2024 2:00 PM CDT Virtual Visit [facility] [address] [place] [address] 105 [place] [phone] Shanna Vang PA-C [address] [place] [address] 03/29/2025 3:40 PM CDT Office Visit [address] [phone] Alfreda Ray PA-C [address] [place] [address] documented as of this encounter Visit Diagnoses Not on filedocumented in this encounter Additional Health Concerns Assessment Noted Time PHQ-9 Depression Total Score: 5 03/09/20 23 10:57 AM CDT documented as of this encounter Care Teams Emergency Care Attendant Relationship Specialty Start Date End Date Alfreda Ray PA-C [address] [place] [address] PCP - General Family Medicine 12/30/21 Alfreda Ray PA-C [address] [place] [address] Referring Physician Family Medicine 12/31/21 Katrin Orellana PA-C [address] [place] [address] 98 [place] [address] Physician Tribal Delegate Dermatology 12/31/21 Shanna Vang PA-C [address] [place] [address] Assigned Cancer Care Provider 01/10/22 Fransisco Eddy MD 515 [facility] 88 [place] [address] Assigned Rheumatology Provider 05/09/22 Katrin Orellana PA-C [address] [place] [address] 98 [place], [place] 0[address] Assigned Surgical Provider 08/15/22 02/10/24 Cristina Hsieh [facility] [address] [place] [address] Pharmacist Pharmacist 09/07/22 Alfreda Ray PA-C [address] [place] [address] 798712 Assigned Pain Medication Provider 09/05/22 09/10/23 Alfreda Ray PA-C [address] [place] [address] 285652 Assigned PCP 08/29/22 Cristina Hsieh [facility] [address] [address] Assigned MTM Pharmacist 09/26/22 Dakota Tatum MD 516 [place] [address] Cardiovascular Disease 03/25/23 Dakota Tatum MD [address] [place] [address] Assigned Heart and Vascular Provider 05/01/23 [place] [address] [facility], [address] [address] Assigned Musculoskeletal Provider 04/12/24 documented as of this encounter
--- OUTSIDE RECORDS SUMMARY | 2024-07-28 12:41 | XMS_ITS | Encounter Summary ---
Author Organization [facility] Address [address] [place] [address] Care Team Providers Care Dance Director Name Role Phone Esperanza Gatica MD Primary Care Provider + Esperanza Gatica MD Unavailable + Jesús Orourke MD Unavailable Alfreda Ray-C Primary Care Provider + Alfreda RayC Unavailable +[phone] Katrin Orellana PA-C Unavailable +[phone] Shanna Vang PA-C Unavailable +[phone] Fransisco Eddy MD Unavailable +[phone] Esperanza Gatica MD Unavailable + Esperanza Gatica MD Unavailable + Katrin OrellanaC Unavailable +[phone] Cristina Hsieh [facility] Unavailable +[phone] Alfreda Ray PA-C Unavailable +[phone] Alfreda Ray PA-C Unavailable +[phone] Cristina Hsieh [facility] Unavailable +[phone] Dakota Tatum MD Unavailable Dakota Tatum MD Unavailable +[phone] Srinivas Marie DO Unavailable [phone] Encounter Details Date Type Department Care Team (Late Contact Info) Description 01/02/2021 MyC Medical Advice [facility] [address] [place] [address] [place] [address] [place] [address] Social History Tobacco Use Types [...] Sex Assigned at Female 08/17/2018 7:56 AM SCHOOL TEACHER Legal Sex Female 4:24 AM SCHOOL TEACHER Gender Identity Female 08/17/2018 7:56 AM SCHOOL TEACHER Sexual Orientation Straight 08/17/2018 7: 56 AM SCHOOL TEACHER COVID-19 Exposure Response Date Recorded In [...] Office Visit [facility] [place] 6525 [facility] 200 [place] [address] Fransisco dEdy MD [address] [place] [address] 88 [place] [address] 09/18/2024 2:00 PM CDT Virtual Visit [facility] [address] 105 [place] [address] Shanna Vang PA-C [address] [place] [address] 03/29/2025 3:40 PM CDT Office Visit [address] [address] Alfreda Ray PA-C [address] [place] [address] 918122 documented as of this encounter Visit Diagnoses Not on filedocumented in this encounter Additional Health Concerns Infection Onset Date Last Indicated Resolved Time Rule Out COVID-19 05/08/2021 05/08/2021 05/09/2021 9:08 PM SCHOOL TEACHER Assessment Noted Time PHQ-9 Depression Total Score: 0 08/31/19 21 11:22 AM SCHOOL TEACHER documented as of this encounter Care Teams Dance Director Relationship Specialty Start Date End Date Esperanza Gatica MD PCP - General Family Practice 10/13/11 12/29/21 Alfreda Ray PA-C [address] [place] [address] PCP - General Family Medicine 12/30/21 [place] [address] [place] [address] Assigned PCP 09/29/20 07/31/22 Jesú[place] [address] [place] [address] Assigned Musculoskeletal Provider 10/20/20 04/17/22 Alfreda Ray PA-C [address] [place] [address] Referring Physician Family Medicine 12/31/21 Kartin Orellana PA-C [address] [place] [address] Physician Snuff Drier Dermatology 12/31/21 Shanna Vang PA-C [address] [address] Assigned Cancer Care Provider 01/10/22 Fransisco Eddy MD [address] [place] [address] Assigned Rheumatology Provider 05/09/22 [place] [address] [place] [address] Assigned Pain Medication Provider 06/29/22 09/04/22 [place] [address] [place] [address] Assigned PCP 08/15/22 08/28/22 Katrin Orellana PA-C [address] [place] [address] Assigned Surgical Provider 08/15/22 02/10/24 Cristina Hsieh [facility] 3305 [facility] [place]NANDE[place] [address] Pharmacist Pharmacist 09/07/22 Alfreda Ray PA-C [address] [place] [address] Assigned Pain Medication Provider 09/05/22 09/10/23 Alfreda Ray PA-C [address] [place] [address] Assigned PCP 08/29/22 Cristina Hsieh, [facility] [address] [place] [address] Assigned MTM Pharmacist 09/26/22 Dakota Tatum MD [address] [place] [address] Cardiovascular Disease 03/25/23 Dakota Tatum MD [address] [place] [address] Assigned Heart and Vascular Provider 05/01/23 [place] [address] CE[address] GASTELUM, [address] [address] Assigned Musculoskeletal Provider 04/12/24 documented as of this encounter
--- OUTSIDE RECORDS SUMMARY | 2024-07-28 12:41 | XMS_ITS | Encounter Summary ---
Author Organization [place] Address [address] [place] [address] Care Team Providers Care Cellophaner Name Role Phone Alfreda Ray PA-C Primary Care Provider + Alfreda Ray PA-C Unavailable [phone] Katrin Orellana PA-C Unavailable +[phone] Shanna Vang PA-C Unavailable +[phone] Fransisco Eddy MD Unavailable +[phone] Katrin Orellana PA-C Unavailable +[phone] Cristina Hsieh [facility] Unavailable +[phone] Alfreda Ray PA-C Unavailable + [phone] Alfreda Ray PA-C Unavailable + [phone] Cristina Hsieh [facility] Unavailable +[phone] Dakota Tatum MD Unavailable + [phone] Dakota Tatum MD Unavailable + [phone] Srinivas Marie DO Unavailable [phone] Encounter Details Date Type Department Care Team (Late st Contact Info) Description 06/11/2023 [facility] Specialty [address] [address] Gloria Harper, RN Social History [...] Assigned at Female 08/17/2018 7:56 AM PAPER COLORER Legal Sex Female 4:24 AM PAPER COLORER Gender Identity Female 08/17/2018 7:56 AM PAPER COLORER Sexual Orientation Straight 08/17/2018 7: 56 AM PAPER COLORER documented as of this encounter Plan of Treatment Upcoming Encounters Date Type Department Care Team (Late st Contact Info) Description 09/07/2024 10:00 AM CDT Office Visit [facility] [place] 65[address] [employer] 200 [place] [phone] Fransisco Eddy MD [address] [place] [address] 88 [place] [address] 09/18/2024 2:00 PM CDT Virtual Visit [facility] [address] [facility] [address] [place] [phone] Shanna Vang PA-C [address] [place] [address] 03/29/2025 3:40 PM CDT Office Visit [address] [address] Alfreda Ray PA-C [address] [place] [address] 031462 documented as of this encounter Visit Diagnoses Not on filedocumented in this encounter Additional Health Concerns Assessment Noted Time PHQ-9 Depression Total Score: 5 03/09/20 23 10:57 AM CDT documented as of this encounter Care Teams Cellophaner Relationship Specialty Start Date End Date Alfreda Ray PA-C [address] [place] [address] PCP - General Family Medicine 12/30/21 Alfreda Ray PA-C [address] [place] [address] Referring Physician Family Medicine 12/31/21 Katrin Orellana PA-C 420 [facility] 98 [place], [place] [address] Physician Dismantler Dermatology 12/31/21 Shanna Vang PA-C [address] [place] [address] 191344 Assigned Cancer Care Provider 01/10/22 Fransisco Eddy MD [address] [place] [address] 88 [place], [place] 44[address] Assigned Rheumatology Provider 05/09/22 Katrin Orellana PA-C [address] 412[address] Assigned Surgical Provider 08/15/22 02/10/24 Cristina Hsieh [facility] 3305 [facility] [place]NANDEZ [address] Pharmacist Pharmacist 09/07/22 Alfreda Ray PA-C [address] [place] [address] 940602 Assigned Pain Medication Provider 09/05/22 09/10/23 Alfreda Ray PA-C [address] [place] [address] 369832 Assigned PCP 08/29/22 Cristina Hsieh [facility] [address] [address] Assigned MTM Pharmacist 09/26/22 Dakota Tatum MD 516 [place] [address] Cardiovascular Disease 03/25/23 Dakota Tatum MD 6 [place] [address] Assigned Heart and Vascular Provider 05/01/23 [place] [address] CELE GASTELUM, [address] [address] Assigned Musculoskeletal Provider 04/12/24 documented as of this encounter
--- OUTSIDE RECORDS SUMMARY | 2024-07-28 12:41 | XMS_ITS | Encounter Summary ---
Author Organization [place] Address [address] [place] [address] Care Team Providers Care Household Manager Name Role Phone Alfreda Ray PA-C Primary Care Provider + Alfreda Ray PA-C Unavailable [phone] Katrin Orellana PA-C Unavailable [phone] Shanna Vang PA-C Unavailable +[phone] Fransisco Eddy MD Unavailable +[phone] Katrin Orellana PA-C Unavailable [phone] Cristina Hsieh [facility] Unavailable +[phone] Alfreda Ray PA-C Unavailable + [phone] Alfreda Ray PA-C Unavailable + [phone] Cristina Hsieh [facility] Unavailable [phone] Dakota Tatum MD Unavailable + [phone] Dakota Tatum MD Unavailable + [phone] Srinivas Marie DO Unavailable [phone] Encounter Details Date Type Department Care Team (Late st Contact Info) Description 09/09/2023 Migdalia Marin [facility] [address] [place] [address] Shanna Vang PA-C [address] [place] [address] Social History Tobacco Use Types Packs/Day Years [...] Sex Assigned at Female 08/17/2018 7:56 AM HEATER OPERATOR HELPER Legal Sex Female 4:24 AM HEATER OPERATOR HELPER Gender Identity Female 08/17/2018 7:56 AM HEATER OPERATOR HELPER Sexual Orientation Straight 08/17/2018 7: 56 AM HEATER OPERATOR HELPER documented as of this encounter Plan of Treatment Upcoming Encounters Date Type Department Care Team (Late st Contact Info) Description 09/07/2024 10:00 AM CDT Office Visit [facility] [address] 200 [place] [phone] Fransisco Eddy MD [address] [place] [address] [address] [place] [address] 09/18/2024 2:00 PM CDT Virtual Visit [facility] [place] [address] 105 [place] [address] Shanna Vang, [place] [address] [address] 03/29/2025 3:40 PM CDT Office Visit [address] [address] Alfreda Ray PA-C [address] [place] [address] 817782 documented as of this encounter Visit Diagnoses Not on filedocumented in this encounter Additional Health Concerns Assessment Noted Time PHQ-9 Depression Total Score: 5 03/09/20 23 10:57 AM CDT documented as of this encounter Care Teams Household Manager Relationship Specialty Start Date End Date Alfreda Ray PA-C [address] [place] [address] 752672 PCP - General Family Medicine 12/30/21 Alfreda Ray PA-C [address] [place] [address]009 Referring Physician Family Medicine 12/31/21 Katrin Orellana PA-C [address] [place] [address]998 Physician Volleyball Commentator Dermatology 12/31/21 Shanna Vang PA-C [address] [place] [address] 14069 Assigned Cancer Care Provider 01/10/22 Fransisco Eddy MD [address] [place] [address] 61491 Assigned Rheumatology Provider 05/09/22 Katrin Orellana PA-C [address] [place] [address]24 Assigned Surgical Provider 08/15/22 02/10/24 Cristina Hsieh [facility] [address] [place] [address] [place] [address] Pharmacist Pharmacist 09/07/22 Alfreda Ray PA-C [address] [place] [address]11 Assigned Pain Medication Provider 09/05/22 09/10/23 Alfreda Ray PA-C [address] [place] [address]17 Assigned PCP 08/29/22 Cristina Hsieh [facility] [address] [address] Assigned MTM Pharmacist 09/26/22 Dakota Tatum MD [address] [place] [address]212 Cardiovascular Disease 03/25/23 Dakota Tatum MD [address] [place] [address]139 Assigned Heart and Vascular Provider 05/01/23 [place] [address] [address] GAST[address], [facility] [address] [place] [address] Assigned Musculoskeletal Provider 04/12/24 documented as of this encounter
--- OUTSIDE RECORDS SUMMARY | 2024-07-28 12:41 | XMS_ITS | Encounter Summary ---
Author Organization [place] Address [address] [place] [address] Care Team Providers Care Heel Seat Pounder Name Role Phone Alfreda Ray PA-C Primary Care Provider + Alfreda Ray PA-C Unavailable +[phone] Katrin Orellana PA-C Unavailable +[phone] Shanna Vang PA-C Unavailable +[phone] Fransisco Eddy MD Unavailable +[phone] Katrin Orellana PA-C Unavailable +[phone] Cristina Hsieh [facility] Unavailable +[phone] Alfreda Ray PA-C Unavailable +[phone] Cristina Hsieh [facility] Unavailable +[phone] Dakoat Tatum MD Unavailable [phone] Dakota Tatum MD Unavailable [phone] Srinivas Marie DO Unavailable Reason for Visit * Reason Comments Medication Refill Encounter Details Date Type Department Care Team (Late st Contact Info) Description 10/08/2023 Refill [facility] Rheumatology [place] [address] [facility] [address]rd [place] [address] Alfreda Ray PA-C [address] [place] [address] Medication Refill Social History Tobacco Use Types [...] Sex Assigned at Female 08/17/2018 7:56 AM FAGOT HEATER HELPER Legal Sex Female 4:24 AM FAGOT HEATER HELPER Gender Identity Female 08/17/2018 7:56 AM FAGOT HEATER HELPER Sexual Orientation Straight 08/17/2018 7: 56 AM FAGOT HEATER HELPER documented as of this encounter Miscellaneous Notes * Telephone Encounter - Natalia Klein CMA - 10/12/2023 4:19 PM CDT Called patient scheduled for BP check in [place] on 10/14/2023. Natalia Klein CMA * Telephone Encounter - Alfreda Ray PA-C - 10/11/2023 12:07 PM CDT Refilled x 90 days. Please advise patient last blood pressure was above goal. Please encourage her to schedule a nurse only blood pressure visit at the [facility] near her home or a [facility] pharmacy. Not due for annual visit until February 2024. If she would like to schedule thisplease assist her in doing so. documented in this encounter Plan of Treatment Upcoming Encounters Date Type Department Care Team (Late st Contact Info) Description 09/07/2024 10:00 AM CDT Office Visit [facility] [address] [phone] Fransisco Eddy MD [address] [place] [address] 09/18/2024 2:00 PM CDT Virtual Visit [facility] [place] [address] 105 [place] [phone] Shanna Vang PA-C [address] [place] [address] 03/29/2025 3:40 PM CDT Office Visit [place] [address] [place] [address] Alfreda Ray PA-C [address] [place] [address] 489572 documented as of this encounter Visit Diagnoses Diagnosis Primary osteoarthritis involving multiple joints documented in this encounter Additional Health Concerns Assessment Noted Time PHQ-9 Depression Total Score: 5 03/09/20 23 10:57 AM CDT documented as of this encounter Care Teams Heel Seat Pounder Relationship Specialty Start Date End Date Alfreda Rya PA-C [address] [place] [address] 927362 PCP - General Family Medicine 12/30/21 Alfreda Ray PA-C [address] [place] [address] 565212 Referring Physician Family Medicine 12/31/21 Katrin Orellana PA-C [address] [place] [address] 740695 Physician Hassock Maker Dermatology 12/31/21 Shanna Vang PA-C [facility] [place] [address] 130114 Assigned Cancer Care Provider 01/10/22 Fransisco Eddy MD [address] [place] [address] 474915 Assigned Rheumatology Provider 05/09/22 Katrin Orellana PA-C [address] [place] [address] 861295 Assigned Surgical Provider 2/25/23 8/22/24 Cristina Hsieh [facility] [address] [facility] [place]ETH HER[place]NDEZ [address] Pharmacist Pharmacist 09/07/22 Alfreda Ray PA-C 4[address] [place], [place] 392402 Assigned PCP 08/29/22 Cristina Hsieh [facility] 1600 [facility] 101 [place] [address] Assigned MTM Pharmacist 09/26/22 Dakota Tatum MD 516 [place], [place] 596835 Cardiovascular Disease 03/25/23 Dakota Tatum MD 516 [place], [place] 471215 Assigned Heart and Vascular Provider 05/01/23 [place] [address] [place] , [facility] 300 [place] [address] Assigned Musculoskeletal Provider 04/12/24 documented as of this encounter
--- OUTSIDE RECORDS SUMMARY | 2024-07-28 12:41 | XMS_ITS | Encounter Summary ---
Author Organization [place] Address [address] [place] [address] Care Team Providers Care Fagoting Machine Operator Name Role Phone Esperanza Gatica MD Primary Care Provider + Esperanza Gatica MD Unavailable + Jesús Orourke MD Unavailable Alfreda Ray-C Primary Care Provider + Alfreda RayC Unavailable +[phone] Katrin Orellana PA-C Unavailable +[phone] Shanna Vang PA-C Unavailable +[phone] Fransisco Eddy MD Unavailable +[phone] Esperanza Gatica MD Unavailable + Esperanza Gatica MD Unavailable + Katrin OrellanaC Unavailable +[phone] [facility] Unavailable [phone] Alfreda Ray PA-C Unavailable +[phone] Alfreda Ray PA-C Unavailable +[phone] [facility] Unavailable [phone] Dakota Tatum MD Unavailable Dakota Tatum MD Unavailable + [phone] Srinivas Marie DO Unavailable [phone] Reason for Visit * Reason Onset Date Comments MyChart Communication 11/26/2020 Encounter Details Date Type Department Care Team ([facility] Contact Info) Description 11/26/2020 MyC Medical Advice [facility] Sports Medicine [facility] [address] [facility] [address] [place], [place] 7158[address] Jesú[place] [address] [facility] [address] [place] [address] MyChart Communication Social History Tobacco Use Types [...] Sex Assigned at Female 08/17/2018 7:56 AM FACILITY TECHNICIAN Legal Sex Female 4:24 AM FACILITY TECHNICIAN Gender Identity Female 08/17/2018 7:56 AM FACILITY TECHNICIAN Sexual Orientation Straight 08/17/2018 7: 56 AM FACILITY TECHNICIAN COVID-19 Exposure Response Date Recorded In [...] Office Visit [facility] [address] 200 [place] [address] Fransisco Eddy MD [address] [place] [address] [address] [place], [place] 459565 09/18/2024 2:00 PM CDT Virtual Visit [facility] [address] [place] [address] 105 [place] [address] Shanna Vang PA-C [address] [place] [address] 03/29/2025 3:40 PM CDT Office Visit [address] [phone] Alfreda Ray PA-C [address] [place] [address] 884212 documented as of this encounter Visit Diagnoses Not on filedocumented in this encounter Additional Health Concerns Infection Onset Date Last Indicated Resolved Time Rule Out COVID-19 05/08/2021 05/08/2021 05/09/2021 9:08 PM FACILITY TECHNICIAN Assessment Noted Time PHQ-9 Depression Total Score: 0 08/31/19 21 11:22 AM FACILITY TECHNICIAN documented as of this encounter Care Teams Fagoting Machine Operator Relationship Specialty Start Date End Date Esperanza Gatica MD PCP - General Family Practice 10/13/11 12/29/21 Alfreda Ray PA-C [address] [place] [address] 191112 PCP - General Family Medicine 12/30/21 [place] [address] [place] [address] Assigned PCP 09/29/20 07/31/22 [place] [address] [address] [place] [address] Assigned Musculoskeletal Provider 10/20/20 04/17/22 Alfreda Ray PA-C [address] [place] [address] 023642 Referring Physician Family Medicine 12/31/21 Katrin Orellana PA-C [address] [place] [address] 296255 Physician Internet Marketing Strategist Dermatology 12/31/21 Shanna Vang PA-C [address] [place] [address] 694134 Assigned Cancer Care Provider 01/10/22 Fransisco Eddy MD [address] [place] [address] 585425 Assigned Rheumatology Provider 05/09/22 [place] [address] [place] GARCIA [address] Assigned Pain Medication Provider 06/29/22 09/04/22 [place] [address] L[place] GARCIA [address] Assigned PCP 08/15/22 08/28/22 Katrin Orellana PA-C [address] [place] [address] 130365 Assigned Surgical Provider 08/15/22 02/10/[address] [facility] [address] [facility] LISBETH HERNANDEZ [address] Pharmacist Pharmacist 09/07/22 Alfreda Ray PA-C [address] [place] [address] 21888 Assigned Pain Medication Provider 09/05/22 09/10/23 Alfreda Ray PA-C [address] [place] [address] 15402 Assigned PCP 08/29/22 Cristina Hsieh, [facility] [address] [address] Assigned MTM Pharmacist 09/26/22 Dakota Tatum MD [address] [place] [address]489 Cardiovascular Disease 03/25/23 Dakota Tatum MD [address] [place] [address]77 Assigned Heart and Vascular Provider 05/01/23 [place] [address] [facility], [address] [address] Assigned Musculoskeletal Provider 04/12/24 documented as of this encounter
--- OUTSIDE RECORDS SUMMARY | 2024-07-28 12:41 | XMS_ITS | Encounter Summary ---
Author Organization [place] Address [address] [place] [address] Care Team Providers Care Mule Developer Name Role Phone Esperanza Gatica MD Primary Care Provider + Esperanza Gatica MD Unavailable + Jesús Orourke MD Unavailable Alfreda Ray-C Primary Care Provider + Alfreda RayC Unavailable +[phone] Katrin Orellana PA-C Unavailable +[phone] Shanna Vang PA-C Unavailable +[phone] Fransisco Eddy MD Unavailable +[phone] Esperanza Gatica MD Unavailable + Esperanza Gatica MD Unavailable + Katrin OrellanaC Unavailable +[phone] Cristina Hsieh [facility] Unavailable [phone] Alfreda Ray PA-C Unavailable +[phone] Alfreda Ray PA-C Unavailable +2600 Cristina Hsieh [facility] Unavailable [phone] Dakota Tatum MD Unavailable Dakota Tatum MD Unavailable +[phone] Srinivas Marie DO Unavailable [phone] Encounter Details Date Type Department Care Team (Late Contact Info) Description 01/02/2021 MyC Medical Advice [facility] [address] [place] [address] [place] [address] [place] [address] Social History Tobacco Use Types [...] Sex Assigned at Female 08/17/2018 7:56 AM BOW STRING MAKER Legal Sex Female 4:24 AM BOW STRING MAKER Gender Identity Female 08/17/2018 7:56 AM BOW STRING MAKER Sexual Orientation Straight 08/17/2018 7: 56 AM BOW STRING MAKER COVID-19 Exposure Response Date Recorded In the last month, have you been in contact with someone who was confirmed or suspected to have Coronavirus / COVID-19? No / Unsure 12/31/2020 8:35 AM CDT documented as of this encounter Plan of Treatment Upcoming Encounters Date Type Department Care Team (Late Contact Info) Description 09/07/2024 10:00 AM CDT Office Visit [facility] [place] 6525 [facility] 200 [place] [address] Fransisco Eddy MD [address] [place] [address] 88 [place] [address] 09/18/2024 2:00 PM CDT Virtual Visit [facility] [address] [place] [address] Shanna Vang PA-C [address] [place] [address] 03/29/2025 3:40 PM CDT Office Visit [address] [address] Alfreda Ray PA-C [address] [place] [address] 413132 documented as of this encounter Visit Diagnoses Not on filedocumented in this encounter Additional Health Concerns Infection Onset Date Last Indicated Resolved Time Rule Out COVID-19 05/08/2021 05/08/2021 05/09/2021 9:08 PM BOW STRING MAKER Assessment Noted Time PHQ-9 Depression Total Score: 0 08/31/19 21 11:22 AM BOW STRING MAKER documented as of this encounter Care Teams Mule Developer Relationship Specialty Start Date End Date Esperanza Gatica MD PCP - General Family Practice 10/13/11 12/29/21 Alfreda Ray PA-C [address] [place] [address] PCP - General Family Medicine 12/30/21 [place] [address] [place] [address] Assigned PCP 09/29/20 07/31/22 [place] [address] [place] [address] Assigned Musculoskeletal Provider 10/20/20 04/17/22 Alfreda Ray PA-C [address] [place] [address]57 Referring Physician Family Medicine 12/31/21 Katrin Orellana PA-C [address] [place] [address] Physician Senior Packaging Engineer Dermatology 12/31/21 Shanna Vang PA-C [address] [address] Assigned Cancer Care Provider 01/10/22 Fransisco Eddy MD [address] [place] [address]967 Assigned Rheumatology Provider 05/09/22 [place] [address] [place] [address] Assigned Pain Medication Provider 06/29/22 09/04/22 [place] [address] [place] [address] Assigned PCP 08/15/22 08/28/22 Katrin Orellana PA-C [address] [place] [address] Assigned Surgical Provider 08/15/22 02/10/24 Cristina Hsieh [facility] 3305 [facility] LISBETH HERNANDEZ [address] Pharmacist Pharmacist 09/07/22 Alfreda Ray PA-C [address] [place] [address] Assigned Pain Medication Provider 09/05/22 09/10/23 Alfreda Ray PA-C [address] [place] [address]406 Assigned PCP 08/29/22 Cristina Hsieh, [facility] [address] [place] [address] Assigned MTM Pharmacist 09/26/22 Dakota Tatum MD [address] [place] [address]14 Cardiovascular Disease 03/25/23 Dakota Tatum MD [address] [place] [address] Assigned Heart and Vascular Provider 05/01/23 [place] [address] [address]AST[address]UM, [address] [address] Assigned Musculoskeletal Provider 04/12/24 documented as of this encounter
--- OUTSIDE RECORDS SUMMARY | 2024-07-28 12:41 | XMS_ITS | Encounter Summary ---
Author Organization [place] Address [address] [place] [address] Care Team Providers Care Ripshear Operator Name Role Phone Esperanza Gatica MD Primary Care Provider + Esperanza Gatica MD Unavailable + Jesús Orourke MD Unavailable Alfreda Ray-C Primary Care Provider + Alfreda RayC Unavailable +260 Katrin Orellana PA-C Unavailable +[phone] Shanna Vang PA-C Unavailable +[phone] Fransisco Eddy MD Unavailable +[phone] Esperanza Gatica MD Unavailable + Esperanza Gatica MD Unavailable + Katrin OrellanaC Unavailable +[phone] Cristina Hsieh [facility] Unavailable +[phone] Alfreda Ray PA-C Unavailable +2600 Alfreda Ray PA-C Unavailable +2600 Cristina Hsieh [facility] Unavailable +[phone] Dakota Tatum MD Unavailable Dakota Tatum MD Unavailable [phone] Srinivas Marie DO Unavailable [phone] Encounter Details Date Type Department Care Team (Late Contact Info) Description 01/01/2021 MyC Medical Advice [facility] [address] [place] [address] [place] [address] [place] [address] Social History Tobacco Use Types [...] Sex Assigned at Female 08/17/2018 7:56 AM WAITER/WAITRESS FIRST CLASS Legal Sex Female 4:24 AM WAITER/WAITRESS FIRST CLASS Gender Identity Female 08/17/2018 7:56 AM WAITER/WAITRESS FIRST CLASS Sexual Orientation Straight 08/17/2018 7: 56 AM WAITER/WAITRESS FIRST CLASS COVID-19 Exposure Response Date Recorded In the last month, have you been in contact with someone who was confirmed or suspected to have Coronavirus / COVID-19? No / Unsure 12/31/2020 8:35 AM CDT documented as of this encounter Plan of Treatment Upcoming Encounters Date Type Department Care Team (Late Contact Info) Description 09/07/2024 10:00 AM CDT Office Visit [facility] [place] 6525 [facility] 200 [place] [address] Fransisco Eddy MD [address] [place] [address] 88 [place] [address] 09/18/2024 2:00 PM CDT Virtual Visit [facility] [address] 105 [place] [address] Shanna Vang PA-C [address] [place] [address] 03/29/2025 3:40 PM CDT Office Visit [address] [address] Alfreda Ray PA-C [address] [place] [address] 537812 documented as of this encounter Visit Diagnoses Not on filedocumented in this encounter Additional Health Concerns Infection Onset Date Last Indicated Resolved Time Rule Out COVID-19 05/08/2021 05/08/2021 05/09/2021 9:08 PM WAITER/WAITRESS FIRST CLASS Assessment Noted Time PHQ-9 Depression Total Score: 0 08/31/19 21 11:22 AM WAITER/WAITRESS FIRST CLASS documented as of this encounter Care Teams Ripshear Operator Relationship Specialty Start Date End Date Esperanza Gatica MD PCP - General Family Practice 10/13/11 12/29/21 Alfreda Ray PA-C [address] [place] [address] PCP - General Family Medicine 12/30/21 [place] [address] [place] [address] Assigned PCP 09/29/20 07/31/22 Jesú[place] [address] [place] [address] Assigned Musculoskeletal Provider 10/20/20 04/17/22 Alfreda Ray PA-C [address] [place] [address] Referring Physician Family Medicine 12/31/21 Katrin Orellana PA-C [address] [place] [address] Physician Funder Dermatology 12/31/21 Shanna Vang PA-C [address] [address] Assigned Cancer Care Provider 01/10/22 Fransisco Eddy MD [address] [place] [address] Assigned Rheumatology Provider 05/09/22 [place] [address] [place] [address] Assigned Pain Medication Provider 06/29/22 09/04/22 [place] [address] [place] [address] Assigned PCP 08/15/22 08/28/22 Katrin Orellana PA-C [address] [place] [address] Assigned Surgical Provider 08/15/22 02/10/24 Cristina Hsieh [facility] 3305 [facility] LISBETH HERNANDEZ [address] Pharmacist Pharmacist 09/07/22 Alfreda Ray PA-C [address] [place] [address] Assigned Pain Medication Provider 09/05/22 09/10/23 Alfreda Ray PA-C [address] [place] [address] Assigned PCP 08/29/22 Cristina Hsieh, [facility] [address] [place] [address] Assigned MTM Pharmacist 09/26/22 Dakota Tatum MD [address] [place] [address] Cardiovascular Disease 03/25/23 Dakota Tatum MD [address] [place] [address] Assigned Heart and Vascular Provider 05/01/23 [place] [address] CE[address] GASTELUM, [address] [address] Assigned Musculoskeletal Provider 04/12/24 documented as of this encounter
--- OUTSIDE RECORDS SUMMARY | 2024-07-28 12:41 | XMS_ITS | Encounter Summary ---
Author Organization [facility] Address [address] [place] [address] Care Team Providers Care Demand Generator Manager Name Role Phone Esperanza Gatica MD Primary Care Provider + Esperanza Gatica MD Unavailable + Jesús Orourke MD Unavailable Alfreda Ray-C Primary Care Provider + Alfreda RayC Unavailable +[phone] Katrin Orellana PA-C Unavailable +[phone] Shanna Vang PA-C Unavailable +[phone] Fransisco Eddy MD Unavailable +[phone] Espearnza Gatica MD Unavailable + Esperanza Gatica MD Unavailable + Katrin OrellanaC Unavailable +[phone] Cristina Hsieh [facility] Unavailable +[phone] Alfreda Ray PA-C Unavailable +[phone] Alfreda Ray PA-C Unavailable +2600 Cristina Hsieh [facility] Unavailable +[phone] Dakota Tatum MD Unavailable Dakota Tatum MD Unavailable + [phone] Srinivas Marie DO Unavailable [phone] Reason for Visit * Reason Onset Date Comments Hip Pain 01/17/2021 Encounter Details Date Type Department Care Team (Late st Contact Info) Description 01/17/2021 MyC Medical Advice [facility] [address] [place] [address] [place] [address] [place] [address] Hip Pain Social History Tobacco [...] Sex Assigned at Female 08/17/2018 7:56 AM GROOVER OPERATOR Legal Sex Female 4:24 AM GROOVER OPERATOR Gender Identity Female 08/17/2018 7:56 AM GROOVER OPERATOR Sexual Orientation Straight 08/17/2018 7: 56 AM GROOVER OPERATOR COVID-19 Exposure Response Date Recorded In [...] 10:00 AM CDT Office Visit [facility] [place] [address] [place] [address] 200 [place] [phone] Fransisco Eddy MD [address] [place] [address] 88 [place], [place] 084075 09/18/2024 2:00 PM CDT Virtual Visit [facility] [address] [place] [address] 105 [place] [phone] Shanna Vang PA-C [address] [place] [address] 541784 03/29/2025 3:40 PM CDT Office Visit [address] [phone] Alfreda Ray PA-C [address] [place] [address] 454852 documented as of this encounter Visit Diagnoses Not on filedocumented in this encounter Additional Health Concerns Infection Onset Date Last Indicated Resolved Time Rule Out COVID-19 05/08/2021 05/08/2021 05/09/2021 9:08 PM GROOVER OPERATOR Assessment Noted Time PHQ-9 Depression Total Score: 0 08/31/19 21 11:22 AM GROOVER OPERATOR documented as of this encounter Care Teams Demand Generator Manager Relationship Specialty Start Date End Date Esperanza Gatica MD PCP - General Family Practice 10/13/11 12/29/21 Alfreda Ray PA-C [address] [place] [address] PCP - General Family Medicine 12/30/21 [place] [address] [place] [address] Assigned PCP 09/29/20 07/31/22 Jesú[place] [address] [place] [address] Assigned Musculoskeletal Provider 10/20/20 04/17/22 Alfreda Ray PA-C [address] [place] [address] [phone] Referring Physician Family Medicine 12/31/21 Katrin Orellana PA-C [address] [place] [address] Physician Gas Reverser Dermatology 12/31/21 Shanna Vang PA-C [address] [address] Assigned Cancer Care Provider 01/10/22 Fransisco Eddy MD [address] [place] [address] Assigned Rheumatology Provider 05/09/22 [place] [address] [place] [address] Assigned Pain Medication Provider 06/29/22 09/04/22 [place] [address] [place] [address] Assigned PCP 08/15/22 08/28/22 Katrin Orellana PA-C [address] [place] [address] 98 [place] [address] Assigned Surgical Provider 08/15/22 02/10/24 Cristina Hsieh [facility] [address] [place] [address] Pharmacist Pharmacist 09/07/22 Alfreda Ray PA-C [address] [place] [address] 664342 Assigned Pain Medication Provider 09/05/22 09/10/23 Alfreda Ray PA-C [address] [place] [address] 775222 Assigned PCP 08/29/22 Cristina Hsieh [facility] [address] [place] [address] Assigned MTM Pharmacist 09/26/22 Dakota Tatum MD [address] [place] [address] Cardiovascular Disease 03/25/23 Dakota Tatum MD [address] [place] [address] Assigned Heart and Vascular Provider 05/01/23 [place] [address] [facility], [address] [address] Assigned Musculoskeletal Provider 04/12/24 documented as of this encounter
--- OUTSIDE RECORDS SUMMARY | 2024-07-28 12:41 | XMS_ITS | Encounter Summary ---
Author Organization [facility] Address [address] [place] [address] Care Team Providers Care Raw Sampler Name Role Phone Esperanza Gatica MD Primary Care Provider + Esperanza Gatica MD Unavailable + Jesús Orourke MD Unavailable Alfreda Ray-C Primary Care Provider + Alfreda RayC Unavailable +[phone] Katrin Orellana PA-C Unavailable +[phone] Shanna Vang PA-C Unavailable +[phone] Fransisco Eddy MD Unavailable +[phone] Esperanza Gatica MD Unavailable + Esperanza Gatica MD Unavailable + Katrin OrellanaC Unavailable +[phone] Cristina Hsieh [facility] Unavailable +[phone] Alfreda Ray PA-C Unavailable +2600 Alfreda Ray PA-C Unavailable +2600 Cristina Hsieh [facility] Unavailable +[phone] Dakota Tatum MD Unavailable Dakota Tatum MD Unavailable +[phone] Srinivas Marie Unavailable [phone] Encounter Details Date Type Department Care Team (Late Contact Info) Description 11/28/2020 MyC Medical Advice [facility] [place] [id number] [place] [address] 160 [place] [address] [place] [address] [place] [address] Social History Tobacco Use Types Packs/Day Years [...] Sex Assigned at Female 08/17/2018 7:56 AM APPLE PICKER Legal Sex Female 4:24 AM APPLE PICKER Gender Identity Female 08/17/2018 7:56 AM APPLE PICKER Sexual Orientation Straight 08/17/2018 7: 56 AM APPLE PICKER COVID-19 Exposure Response Date Recorded In the last month, have you been in contact with someone who was confirmed or suspected to have Coronavirus / COVID-19? No / Unsure 11/12/2020 1:17 PM CDT documented as of this encounter Plan of Treatment Upcoming Encounters Date Type Department Care Team (Late Contact Info) Description 09/07/2024 10:00 AM CDT Office Visit [facility] [place] [address] [facility] 200 [place] [phone] Fransisco Eddy MD [address] [place] [address] 88 [place] [address] 09/18/2024 2:00 PM CDT Virtual Visit [facility] [address] 105 [place] [address] Shanna Vang PA-C [address] [place] [address] 03/29/2025 3:40 PM CDT Office Visit [address] [phone] Alfreda Ray PA-C [address] [place] [address] [phone] documented as of this encounter Visit Diagnoses Not on filedocumented in this encounter Additional Health Concerns Infection Onset Date Last Indicated Resolved Time Rule Out COVID-19 05/08/2021 05/08/2021 05/09/2021 9:08 PM APPLE PICKER Assessment Noted Time PHQ-9 Depression Total Score: 0 08/31/19 21 11:22 AM APPLE PICKER documented as of this encounter Care Teams Raw Sampler Relationship Specialty Start Date End Date Esperanza Gatica MD PCP - General Family Practice 10/13/11 12/29/21 Alfreda Ray PA-C [address] [place] [address] 085862 PCP - General Family Medicine 12/30/21 [place] [address] [place] [address] Assigned PCP 09/29/20 07/31/22 Jesú[place] [address] [place] [address] Assigned Musculoskeletal Provider 10/20/20 04/17/22 Alfreda Ray PA-C [address] [place] [address] Referring Physician Family Medicine 12/31/21 Katrin Orellana PA-C [address] [place] [address] Physician Complaint Investigations Officer Dermatology 12/31/21 Shanna Vang PA-C [address] [place] [address] Assigned Cancer Care Provider 01/10/22 Fransisco Eddy MD [address] [place] [address] Assigned Rheumatology Provider 05/09/22 [place] [address] [facility] [address] Assigned Pain Medication Provider 06/29/22 09/04/22 [place] [address] [place] [address] Assigned PCP 08/15/22 08/28/22 Katrin Orellana PA-C [address] [place] [address] Assigned Surgical Provider 08/15/22 02/10/24 Cristina Hsieh [facility] [address] [place] [address] LISBETH HERNANDEZ [address] Pharmacist Pharmacist 09/07/22 Alfreda Ray PA-C [address] [place] [address], [place] [address] Assigned Pain Medication Provider 09/05/22 09/10/23 Alfreda Ray PA-C [address] [place] [address] Assigned PCP 08/29/22 Cristina Hsieh, [facility] [address] [place] [address] Assigned MTM Pharmacist 09/26/22 Dakota Tatum MD [address] [place] [address] Cardiovascular Disease 03/25/23 Dakota Tatum MD [address] [place] [place] [address] Assigned Heart and Vascular Provider 05/01/23 [place] [address] CELE GASTELUM, [address] [address] Assigned Musculoskeletal Provider 04/12/24 documented as of this encounter
--- OUTSIDE RECORDS SUMMARY | 2024-07-28 12:42 | XMS_ITS | Encounter Summary ---
Author Organization [facility] Address [address] [place] [address] Care Team Providers Care Chopper Gun Operator Name Role Phone Esperanza Gatica MD Primary Care Provider + Esperanza Gatica MD Unavailable +[phone] Esperanza Gatica MD Unavailable +[phone] Esperanza Gatica MD Unavailable +[phone] Esperanza Gatica MD Unavailable +991 Esperanza Gatica MD Unavailable +[phone] Esperanza Gatica MD Unavailable +[phone] Jesús Orourke MD Unavailable Alfreda RayC Primary Care Provider + Alfreda Ray PA-C Unavailable + [phone] Katrin Orellana PA-C Unavailable [phone] Shanna VangC Unavailable +[phone] Fransisco Eddy MD Unavailable [phone] Esperanza Gatica MD Unavailable +[phone] Esperanza Gatica MD Unavailable +[phone] Katrin Orellana PA-C Unavailable Cristina Hsieh [facility] Unavailable Cory Alfreda Liu PA-C Unavailable [phone] Ho Raymustapha Liu PA-C Unavailable [phone] Cristina Hsieh [facility] Unavailable Dakota Tatum MD Unavailable Dakota Tatum MD Unavailable Srinivas Marie DO Unavailable [phone] Reason for Visit * Reason Onset Date Comments Flu 08/19/2016 Flu like symptom s Encounter Details Date Type Department Care Team (Late st Contact Info) Description 08/19/2016 MyC Medical Advice [place] 966[address] [facility], [facility] 100 [place] [address] [place] [address] [facility] [place] [address] Flu (Flu like symptoms) Social [...] Sex Assigned at Female 08/17/2018 7:56 AM PRINCIPAL ELECTRICAL ENGINEER Legal Sex Female 4:24 AM PRINCIPAL ELECTRICAL ENGINEER Gender Identity Female 08/17/2018 7:56 AM PRINCIPAL ELECTRICAL ENGINEER Sexual Orientation Straight 08/17/2018 7: 56 AM PRINCIPAL ELECTRICAL ENGINEER documented as of this encounter Plan of Treatment Upcoming Encounters Date Type Department Care Team (Late st Contact Info) Description 09/07/2024 10:00 AM CDT Office Visit [facility] [address] 200 [place] [address] Fransisco Eddy MD [address] [place] [address] 09/18/2024 2:00 PM CDT Virtual Visit [facility] [address] [place] [address] 105 [place] [address] Shanna Vang PA-C [address] [place] [address] 03/29/2025 3:40 PM CDT Office Visit [address] [phone] Alfreda Ray PA-C [address] [place] [address] 265062 documented as of this encounter Visit Diagnoses Not on filedocumented in this encounter Additional Health Concerns Infection Onset Date Last Indicated Resolved Time Rule Out COVID-19 05/08/2021 05/08/2021 05/09/2021 9:08 PM PRINCIPAL ELECTRICAL ENGINEER Assessment Noted Time PHQ-9 Depression Total Score: 0 08/18/19 17 7:09 AM PRINCIPAL ELECTRICAL ENGINEER documented as of this encounter Care Teams Chopper Gun Operator Relationship Specialty Start Date End Date Esperanza Gatica MD PCP - General Family Practice 10/13/11 12/29/21 [place] [address] [address] [address] PCP - Assigned PCP 12/05/17 08/23/18 Alfreda Ray PA-C [address] [place] [address] PCP - General Family Medicine 12/30/21 [place] [address] [address]IA [address] Assigned PCP 12/05/17 09/30/19 [place] [address] [place] [address] Assigned PCP 10/01/19 03/02/20 [place] [address] [place] [address] Assigned PCP 03/03/20 05/25/20 [place] [address] [place] [address] Assigned PCP 05/26/20 09/28/20 [place] [address] [place] [address] Assigned PCP 09/29/20 07/31/22 Jesú[place] [address] [place] [address] Assigned Musculoskeletal Provider 10/20/20 04/17/22 Alfreda Ray PA-C [address] [place] [address] Referring Physician Family Medicine 12/31/21 Katrin Orellana PA-C [address] [place] [address] Physician Meat Boner Dermatology 12/31/21 Shanna Vang PA-C [address] [place] [address] Assigned Cancer Care Provider 01/10/22 Fransisco Eddy MD [address] [place] [address] 88 [place] [address] Assigned Rheumatology Provider 05/09/22 [place] [address] [place] [address] Assigned Pain Medication Provider 06/29/22 09/04/22 [place] [address] [facility] [place] [address] Assigned PCP 08/15/22 08/28/22 Katrin Orellana PA-C [address] [place] [address] 98 [place] [address] Assigned Surgical Provider 08/15/22 02/10/24 Cristina Hsieh [facility] [address] [place] [address] LISBETH HERNANDEZ [address] Pharmacist Pharmacist 09/07/22 Alfreda Ray PA-C [address] [place] [address] Assigned Pain Medication Provider 09/05/22 09/10/23 Alfreda Ray PA-C [address] [place] [address] Assigned PCP 08/29/22 Cristina Hsieh [facility] [address] [facility] 101 [place] [address] Assigned MTM Pharmacist 09/26/22 Dakota Tatum MD [address] [place] [address] Cardiovascular Disease 03/25/23 Dakota Tatum MD [address] [place] [address] Assigned Heart and Vascular Provider 05/01/23 [place] [address] CELE GASTELUM, [facility] 300 [place] [address] Assigned Musculoskeletal Provider 04/12/24 documented as of this encounter
--- OUTSIDE RECORDS SUMMARY | 2024-07-28 12:42 | XMS_ITS | Encounter Summary ---
Author Organization [facility] Address [address] [place] [address] Care Team Providers Care Floor Hand Name Role Phone Esperanza Gatica MD Primary Care Provider + Esperanza Gatica MD Unavailable + Jesús Orourke MD Unavailable Alfreda Ray-C Primary Care Provider + Alfreda RayC Unavailable +260 Katrin Orellana PA-C Unavailable +[phone] Shanna Vang PA-C Unavailable +[phone] Fransisco Eddy MD Unavailable +[phone] Esperanza Gatica MD Unavailable + Esperanza Gatica MD Unavailable + Katrin OrellanaC Unavailable +[phone] Cristina Hsieh [facility] Unavailable +[phone] Alfreda Ray PA-C Unavailable +2600 Alfreda Ray PA-C Unavailable +2600 Cristina Hsieh [facility] Unavailable +[phone] Dakota Tatum MD Unavailable Dakota Tatum MD Unavailable +[phone] Srinivas Marie DO Unavailable [phone] Encounter Details Date Type Department Care Team (Late st Contact Info) Description 07/20/2021 MyC Medical Advice [facility] [address] [place] [phone] [place] [address] [place] [address] Social History Tobacco Use Types [...] Sex Assigned at Female 08/17/2018 7:56 AM SKIP LOAD DRIVER Legal Sex Female 4:24 AM SKIP LOAD DRIVER Gender Identity Female 08/17/2018 7:56 AM SKIP LOAD DRIVER Sexual Orientation Straight 08/17/2018 7: 56 AM SKIP LOAD DRIVER documented as of this encounter Miscellaneous Notes * Telephone Encounter - So Mathur RN - 07/21/2021 11:34 AM SKIP LOAD DRIVER Called the pt. She started with symptoms - July 05. Just yesterday she felt good. She took a home test and she was positive. [facility] Today and yesterday she felt better. No [...] for her granddaughters wedding in July to [place]. Advised she may want to do an e-visit if she would need a letter stating that she had covid and has recovered. She said she will try to do it the end of this week. LOAD DRIVER documented in this encounter Plan of Treatment Upcoming Encounters Date Type Department Care Team (Late st Contact Info) Description 09/07/2024 10:00 AM CDT Office Visit [facility] [place] 6525 [facility] 200 [place] [phone] Fransisco Eddy MD [address] [place] [address] 88 [place] [address] 09/18/2024 2:00 PM CDT Virtual Visit [facility] [address] 105 [place] [phone] Shanna Vang PARobinson [address] [address] 03/29/2025 3:40 PM CDT Office Visit [address] [phone] Alfreda Ray PA-C [address] [place] [address] 396012 documented as of this encounter Visit Diagnoses Not on filedocumented in this encounter Additional Health Concerns Assessment Noted Time PHQ-9 Depression Total Score: 0 08/31/19 21 11:22 AM SKIP LOAD DRIVER documented as of this encounter Care Teams Floor Hand Relationship Specialty Start Date End Date Esperanza Gatica MD PCP - General Family Practice 10/13/11 12/29/21 Alfreda Ray PA-C [address] [place] [address] 138982 PCP - General Family Medicine 12/30/21 [place] [address] [address] [address] Assigned PCP 09/29/20 07/31/22 Jesú[place] [address] [address] Assigned Musculoskeletal Provider 10/20/20 04/17/22 Alfreda Ray PA-C [address] [place] [address] 057872 Referring Physician Family Medicine 12/31/21 Katrin Orellana PA-C [address] [place] [address] 98 [place], [place] 319245 Physician Electronic Train Control Technician Dermatology 12/31/21 Shanna Vang PA-C [address] [id number] Assigned Cancer Care Provider 01/10/22 Fransisco Eddy MD [address] [place] [address] 162795 Assigned Rheumatology Provider 05/09/22 [place] [address] [address] [address] Assigned Pain Medication Provider 06/29/22 09/04/22 [place] [address] [address] [address] Assigned PCP 2/25/23 3/10/23 Katrin Orellana PA-C [address] [place] [address] 98 [place], [place] 174505 Assigned Surgical Provider 08/15/22 02/10/24 Cristina Hsieh [facility] [address] [facility] [address] [place] [phone] Pharmacist Pharmacist 09/07/22 Alfreda Ray PA-C [address] [place] [address] 386622 Assigned Pain Medication Provider 09/05/22 09/10/23 Alfreda Ray PA-C [address] [place] [address] 470172 Assigned PCP 08/29/22 Cristina Hsieh [facility] [address] [place] [address] Assigned MTM Pharmacist 09/26/22 Dakota Tatum MD [address] [place] [address] Cardiovascular Disease 03/25/23 Dakota Tatum MD [address] [place] [address] Assigned Heart and Vascular Provider 05/01/23 [place] [address] [facility], [facility] 300 [place] [address] Assigned Musculoskeletal Provider 04/12/24 documented as of this encounter
--- OUTSIDE RECORDS SUMMARY | 2024-07-28 12:42 | XMS_ITS | Encounter Summary ---
Author Organization [place] Address [address] [place] [address] Care Team Providers Care Basket Weaver Name Role Phone Esperanza Gatica MD Primary Care Provider + Esperanza Gatica MD Unavailable +[phone] Esperanza Gatica MD Unavailable +[phone] Esperanza Gatica MD Unavailable +[phone] Esperanza Gatica MD Unavailable +[phone] Esperanza Gatica MD Unavailable +[phone] Esperanza Gatica MD Unavailable +[phone] Jesús Orourke MD Unavailable Alfreda RayC Primary Care Provider + Alfreda Ray PA-C Unavailable + [phone] Katrin Orellana PA-C Unavailable +[phone] Shanna VangC Unavailable +[phone] Fransisco Eddy MD Unavailable +[phone] Esperanza Gatica MD Unavailable +[phone] Esperanza Gatica MD Unavailable +[phone] Katrin Orellana PA-C Unavailable Cristina Hsieh [facility] Unavailable +[phone] Cory Alfreda Liu PA-C Unavailable +[phone] Cory Alfreda Liu PA-C Unavailable +[phone] Cristina Hsieh [facility] Unavailable +[phone] Dakota Tatum MD Unavailable [phone] Dakota Tatum MD Unavailable +[phone] Srinivas Marie DO Unavailable [phone] Reason for Visit * Reason Onset Date Comments Refill Request 09/11/2015 Lisinopril-HCTZ Encounter Details Date Type Department Care Team (Late st Contact Info) Description 09/11/2015 MyC Refill [address], [address] [place] [address] [place] [address] [place] [address] Refill Request (Lisinopril-HCTZ) Social History [...] Assigned at Female 08/17/2018 7:56 AM SUPERVISOR PLATING AND POINT ASSEMBLY Legal Sex Female 4:24 AM SUPERVISOR PLATING AND POINT ASSEMBLY Gender Identity Female 08/17/2018 7:56 AM SUPERVISOR PLATING AND POINT ASSEMBLY Sexual Orientation Straight 08/17/2018 7: 56 AM SUPERVISOR PLATING AND POINT ASSEMBLY documented as of this encounter Miscellaneous Notes * Telephone Encounter - Leigha Rinaldi RN - 09/11/2015 11:44 AM CDT Lisinopril-HCTZ Last Written Prescription Date: 08/13/2015 Last Fill Quantity: 90, # refills: 1 Last Office Visit with [facility], [facility] or [facility] prescribing provider: 08/13/2015 POTASSIUM Date Value Ref Range Status 08/13/2015 3.9 3.4 - 5.3 mmol/L Final CREATININE Date Value Ref Range Status 08/13/2015 0.87 0.52 - 1.04 mg/dL Final BP Readings from Last 3 Encounters: 08/13/15 136/66 04/08/15 112/60 12/06/14 126/64 Leigha Rinaldi RN * Telephone Encounter - Leigha Rinaldi RN - 09/11/2015 11:44 AM [facility] Original authorizing provider: MD Alexandria Brannon would like a refill of the following medications: lisinopril-hydrochlorothiazide (PRINZIDE,ZESTORETIC) 10-12.5 MG per tablet [Esperanza Gatica MD] Preferred pharmacy: [facility] - [address] Comment: documented in this encounter Plan of Treatment Upcoming Encounters Date Type Department Care Team (Late st Contact Info) Description 09/07/2024 10:00 AM CDT Office Visit [facility] [address] [place] [phone] Fransisco Eddy MD [address] [place] [address] 88 [place], [place] 199045 09/18/2024 2:00 PM CDT Virtual Visit [facility] [place] [address] [address] [place] [address] Shanna Vang, PA-C [address] 806604 03/29/2025 3:40 PM CDT Office Visit [address] [phone] Alfreda Ray PA-C [address] [place] [address] documented as of this encounter Visit Diagnoses Diagnosis HTN (hypertension), benign Essential hypertension, benign documented in this encounter Additional Health Concerns Infection Onset Date Last Indicated Resolved Time Rule Out COVID-19 05/08/2021 05/08/2021 05/09/2021 9:08 PM SUPERVISOR PLATING AND POINT ASSEMBLY Assessment Noted Time PHQ-9 Depression Total Score: 0 08/14/19 16 8:10 AM SUPERVISOR PLATING AND POINT ASSEMBLY documented as of this encounter Care Teams Basket Weaver Relationship Specialty Start Date End Date Esperanza Gatica MD PCP - General Family Practice 10/13/11 12/29/21 [place] [address] [place]ARCIA [address] PCP - Assigned PCP 12/05/17 08/23/18 Alfreda Ray PA-C [address] [place] [address] PCP - General Family Medicine 12/30/21 [place] [address] [place] [address] Assigned PCP 12/05/17 09/30/19 [place] [address] [place] [address] Assigned PCP 10/01/19 03/02/20 [place] [address] [place] [address] Assigned PCP 03/03/20 05/25/20 [place] [address] [place] [address] Assigned PCP 05/26/20 09/28/20 [place] [address] [place] [address] Assigned PCP 09/29/20 07/31/22 Jesú[place] [address] [place] [facility] [place], [place] 591717 Assigned Musculoskeletal Provider 10/20/20 04/17/22 Alfreda Ray PA-C [address] [place] [address] Referring Physician Family Medicine 12/31/21 Katrin Orellana PA-C [address] [place] [address]57 Physician Engine Room Helper Dermatology 12/31/21 Shanna Vang PA-C [facility] [address] Assigned Cancer Care Provider 01/10/22 Fransisco Eddy MD [address] [place] [address] 099575 Assigned Rheumatology Provider 05/09/22 [place] [address] [place] [address] Assigned Pain Medication Provider 06/29/22 09/04/22 [place] [address] [place] [address] Assigned PCP 08/15/22 08/28/22 Katrin Orellana PA-C [address] [place] [address] 936135 Assigned Surgical Provider 08/15/22 02/10/24 [place] [address] [place] [address] [place] [address] Pharmacist Pharmacist 09/07/22 Alfreda Ray PA-C [address] [place] [address]234 Assigned Pain Medication Provider 09/05/22 09/10/23 Alfreda Ray PA-C [address] [place] [address] 678922 Assigned PCP 08/29/22 Cristina Hsieh [facility] [address] [place] [address] 236[address] Assigned MTM Pharmacist 09/26/22 Dakota Tatum MD [address] [place] [address] 205905 Cardiovascular Disease 03/25/23 Dakota Tatum MD [address] [place] [address] 012095 Assigned Heart and Vascular Provider 05/01/23 [place] [address] [address], [address] 2695[address] Assigned Musculoskeletal Provider 04/12/24 documented as of this encounter
--- OUTSIDE RECORDS SUMMARY | 2024-07-28 12:42 | XMS_ITS | Encounter Summary ---
Author Organization [place] Address [address] [place] [address] Care Team Providers Care Automatic Vulcanizing Lead Operator Name Role Phone Esperanza Gatica MD Primary Care Provider + Esperanza Gatica MD Unavailable +[phone] Esperanza Gatica MD Unavailable +[phone] Esperanza Gatica MD Unavailable +[phone] Esperanza Gatica MD Unavailable +[phone] Esperanza Gatica MD Unavailable +[phone] Esperanza Gatica MD Unavailable +[phone] Jesús Orourke MD Unavailable Alfreda RayC Primary Care Provider + Alfreda Ray PA-C Unavailable + [phone] Katrin Orellana PA-C Unavailable [phone] Shanna VangC Unavailable +[phone] Fransisco Eddy MD Unavailable +[phone] Esperanza Gatica MD Unavailable +[phone] Esperanza Gatica MD Unavailable +[phone] Katrin Orellana PA-C Unavailable [phone] Cristina Hsieh [facility] Unavailable Cory Alfreda Liu PA-C Unavailable +[phone] Cory Alfreda Liu PA-C Unavailable +[phone] Cristina Hsieh [facility] Unavailable [phone] Dakota Tatum MD Unavailable Dakota Tatum MD Unavailable [phone] Srinivas Marie DO Unavailable [phone] Reason for Visit * Reason Onset Date Comments Refill Request 01/15/2015 Atenolol 25mg Encounter Details Date Type Department Care Team (Late st Contact Info) Description 01/15/2015 MyC Refill [address], [facility] [address] [place] [address] [place] [address] [place] [address] Refill Request (Atenolol 25mg) Social [...] Sex Assigned at Female 08/17/2018 7:56 AM DEPARTMENT HELPER Legal Sex Female 4:24 AM DEPARTMENT HELPER Gender Identity Female 08/17/2018 7:56 AM DEPARTMENT HELPER Sexual Orientation Straight 08/17/2018 7: 56 AM DEPARTMENT HELPER documented as of this encounter Miscellaneous Notes * Telephone Encounter - Leigha Rinaldi RN - 01/15/2015 10:29 AM CDT Atenolol 25mg Last Written Prescription Date: 07/10/2014 Last Fill Quantity: 90, # refills: 1 Last Office Visit with [facility] primary care provider: 12/06/2014 Future Office Visit: BP Readings from Last 3 Encounters: 12/06/14 126/64 08/07/14 130/88 07/10/14 116/60 Prescription approved per [facility] Refill Protocol. Leigha Rinaldi RN * Telephone Encounter - Leigha Rinaldi RN - 01/15/2015 10:28 AM [facility] Original authorizing provider: MD Alexandria Brannon would like a refill of the following medications: atenolol (TENORMIN) 25 MG tablet [Esperanza Gatica MD] Preferred pharmacy: [id number] [address] Comment: documented in this encounter Plan of Treatment Upcoming Encounters Date Type Department Care Team (Late st Contact Info) Description 09/07/2024 10:00 AM CDT Office Visit [facility] [address] [place] [address] Fransisco Eddy MD [address] [place] [address] 88 [place] [address] 09/18/2024 2:00 PM CDT Virtual Visit [facility][note 2][address] [place] [address] 105 [place] [address] Shanna Vang, PAFilemonC [address] [place] [address] 03/29/2025 3:40 PM CDT Office Visit [facility] [address] [place] [address] [place] [phone] Alfreda Ray PA-C [address] [place] [address] 866982 documented as of this encounter Visit Diagnoses Diagnosis HTN (hypertension), benign Essential hypertension, benign documented in this encounter Additional Health Concerns Infection Onset Date Last Indicated Resolved Time Rule Out COVID-19 05/08/2021 05/08/2021 05/09/2021 9:08 PM DEPARTMENT HELPER documented as of this encounter Care Teams Automatic Vulcanizing Lead Operator Relationship Specialty Start Date End Date Esperanza Gatica MD PCP - General Family Practice 10/13/11 12/29/21 [place] [address] [place] [address] PCP - Assigned PCP 12/05/17 08/23/18 Alfreda Ray PA-C [address] [place] [address] PCP - General Family Medicine 12/30/21 [place] [address] [place] [address] Assigned PCP 12/05/17 09/30/19 [place] [address] [place] [address] Assigned PCP 10/01/19 03/02/20 [place] [address] [place] [address] Assigned PCP 03/03/20 05/25/20 [place] [address] [place] [address] Assigned PCP 05/26/20 09/28/20 [place] [address] [place] [address] Assigned PCP 09/29/20 07/31/22 Jesú[place] [address] [address] Assigned Musculoskeletal Provider 10/20/20 04/17/22 Alfreda Ray PA-C [address] [place] [address] 670912 Referring Physician Family Medicine 12/31/21 Katrin Orellana PA-C [address] [place] [address] 98 [place], [place] 734225 Physician Scrap Shear Operator Dermatology 12/31/21 Shanna Vang PA-C [address] 249654 Assigned Cancer Care Provider 01/10/22 Fransisco Eddy MD [address] [place] [address] 313455 Assigned Rheumatology Provider 05/09/22 [place] [address] [place]ARCIA [address] Assigned Pain Medication Provider 06/29/22 09/04/22 [place] [address] [place] [address] Assigned PCP 08/15/22 08/28/22 Katrin Orellana PA-C [address] [facility] 98 [place] [address] Assigned Surgical Provider 08/15/22 02/10/24 Cristina Hsieh [facility] [address] [facility] [place]ETH [place]DEZ [address] Pharmacist Pharmacist 09/07/22 Alfreda Ray PA-C [address] [place] [address] 064582 Assigned Pain Medication Provider 09/05/22 09/10/23 Alfreda Ray PA-C [address] [place] [address] Assigned PCP 08/29/22 Cristina Hsieh, [facility] [address] [address] Assigned MTM Pharmacist 09/26/22 Dakota Tatum MD [address] [place] [address] Cardiovascular Disease 03/25/23 Dakota Tatum MD [address] [place] [address] Assigned Heart and Vascular Provider 05/01/23 [place] [address] [address] [facility], [facility] [address] [place] [address] Assigned Musculoskeletal Provider 04/12/24 documented as of this encounter
--- OUTSIDE RECORDS SUMMARY | 2024-07-28 12:42 | XMS_ITS | Encounter Summary ---
Author Organization [place] Address [address] [place] [address] Care Team Providers Care Pecan Picker Name Role Phone Alfreda Ray PA-C Primary Care Provider + Alfreda Ray PA-C Unavailable +[phone] Katrin Orellana PA-C Unavailable [phone] Shanna aVng PA-C Unavailable +[phone] Fransisco Eddy MD Unavailable Katrin Orellana PA-C Unavailable [phone] Cristina Hsieh [facility] Unavailable +[phone] Alfreda Ray PA-C Unavailable +[phone] Cristina Hsieh [facility] Unavailable +[phone] Dakota Tatum MD Unavailable [phone] Dakota Tatum MD Unavailable [phone] Srinivas Marie DO Unavailable [phone] Encounter Details Date Type Department Care Team (Late st Contact Info) Description 10/21/2023 MyC Medical Advice [facility] [address] [address] Gia Weller Social History Tobacco [...] Sex Assigned at Female 08/17/2018 7:56 AM AUDITOR TAX Legal Sex Female 4:24 AM AUDITOR TAX Gender Identity Female 08/17/2018 7:56 AM AUDITOR TAX Sexual Orientation Straight 08/17/2018 7: 56 AM AUDITOR TAX documented as of this encounter Plan of Treatment Upcoming Encounters Date Type Department Care Team (Azul Contact Info) Description 09/07/2024 10:00 AM CDT Office Visit [facility] [address] 200 [place] [address] Fransisco Eddy MD [address] [facility] 88 [place] [address] 09/18/2024 2:00 PM CDT Virtual Visit [facility] [address] [facility] [address] [place] [address] Shanna Vang PA-C [address] [place] [address] 03/29/2025 3:40 PM CDT Office Visit [address] [phone] Alfreda Ray PA-C [address] [place] [address] 549202 documented as of this encounter Visit Diagnoses Not on filedocumented in this encounter Additional Health Concerns Assessment Noted Time PHQ-9 Depression Total Score: 5 03/09/20 23 10:57 AM CDT documented as of this encounter Care Teams Pecan Picker Relationship Specialty Start Date End Date Alfreda Ray PA-C [address] [place] [address] PCP - General Family Medicine 12/30/21 Alfreda Ray PA-C [address] [place] [address] Referring Physician Family Medicine 12/31/21 Katrin Orellana PA-C [address] [address] Physician Emergency Communications Officer Dermatology 12/31/21 Shanna Vang PA-C [address] [place] [address] Assigned Cancer Care Provider 01/10/22 Fransisco Eddy MD [address] [place] [address] Assigned Rheumatology Provider 05/09/22 Katrin Orellana PA-C [address] [place] [address] Assigned Surgical Provider 08/15/22 02/10/24 Cristina Hsieh [facility] [address] [place] [address] [place] [address] Pharmacist Pharmacist 09/07/22 Alfreda Ray PA-C [address] [place] [address] 504072 Assigned PCP 08/29/22 Cristina Hsieh [facility] [address] [place] [address] Assigned MTM Pharmacist 09/26/22 Dakota Tatum MD [address] [place] [address] 470665 Cardiovascular Disease 03/25/23 Dakota Tatum MD [address] [place] [address] 002455 Assigned Heart and Vascular Provider 05/01/23 [place] [address] [facility], [address] 843187 Assigned Musculoskeletal Provider 04/12/24 documented as of this encounter
--- OUTSIDE RECORDS SUMMARY | 2024-07-28 12:42 | XMS_ITS | Encounter Summary ---
Author Organization [place] Address [address] [place] [address] Care Team Providers Care Hamper Maker Machine Name Role Phone Esperanza Gatica MD Primary Care Provider + Esperanza Gatica MD Unavailable +[phone] Esperanza Gatica MD Unavailable +[phone] Esperanza Gatica MD Unavailable +339 Esperanza Gatica MD Unavailable +371 Esperanza Gatica MD Unavailable +235 Esperanza Gatica MD Unavailable +[phone] Jesús Orourke MD Unavailable Alfreda RayC Primary Care Provider + Alfreda Ray PA-C Unavailable + [phone] Katrin Orellana PA-C Unavailable [phone] Shanna VangC Unavailable +[phone] Fransisco Eddy MD Unavailable [phone] Esperanza Gatica MD Unavailable +[phone] Esperanza Gatica MD Unavailable +[phone] Katrin Orellana PA-C Unavailable [phone] Cristina Hsieh [facility] Unavailable Cory Alfreda Liu PA-C Unavailable +[phone] Ray, Alfreda Liu PA-C Unavailable +[phone] Cristina Hsieh [facility] Unavailable Dakota Tatum MD Unavailable Dakota Tatum MD Unavailable Srinivas Marie DO Unavailable [phone] Reason for Visit * Reason Onset Date Comments Refill Request 12/22/2014 Lisinopril-HCTZ 10-12.5mg Encounter Details Date Type Department Care Team (Late st Contact Info) Description 12/22/2014 MyC Medical Advice [address], [address] [place] [address] [place] [address] [place] [address] Refill Request (Lisinopril-HCTZ 10-12.5mg) Social History Tobacco Use Types Packs/Day Years Used Date Smoking Tobacco: Former Cigarettes 1 5 0 06/21/1968 - 06/21/1973 Smokeless Tobacco: Former Alcohol Use Standard Drinks/Week Comments Yes 0 (1 standard drink = 0.6 oz pure alcohol) Very occasionally - 2 per month Comments No Sex and Gender Information Value Date Recorded Sex Assigned at Female 08/17/2018 7:56 AM HIM ASSISTANT Legal Sex Female 4:24 AM HIM ASSISTANT Gender Identity Female 08/17/2018 7:56 AM HIM ASSISTANT Sexual Orientation Straight 08/17/2018 7: 56 AM HIM ASSISTANT documented as of this encounter Miscellaneous Notes * Telephone Encounter - Leigha Rinaldi RN - 12/24/2014 8:16 AM CDT Lisinopril-HCTZ Last Written Prescription Date: 06/18/2014 Last Fill Quantity: 90 , # refills: 1 Last Office Visit with [facility] primary care provider: 5/18/ POTASSIUM [...] CDT Office Visit [facility] [address] 200 [place] [address] Fransisco Eddy MD [address] [place] [address] 88 [place] [address] 09/18/2024 2:00 PM CDT Virtual Visit [facility] [place] [address] 105 [place] [address] Shanna Vang, PARobinson [address] [place] [address] 03/29/2025 3:40 PM CDT Office Visit [address] [place] [address] Alfreda Ray PA-C [address] [place] [address] 998102 documented as of this encounter Visit Diagnoses Diagnosis Insomnia, unspecified- Primary HTN (hypertension), benign Essential hypertension, benign documented in this encounter Additional Health Concerns Infection Onset Date Last Indicated Resolved Time Rule Out COVID-19 05/08/2021 05/08/2021 05/09/2021 9:08 PM HIM ASSISTANT documented as of this encounter Care Teams Hamper Maker Machine Relationship Specialty Start Date End Date Esperanza Gatica MD PCP - General Family Practice 10/13/11 12/29/21 [place] [address] [address] [address]ARCIA [address] PCP - Assigned PCP 12/05/17 08/23/18 Alfreda Ray PA-C [address] [place] [address] PCP - General Family Medicine 12/30/21 [place] [address] [place]ARC[place] [address] Assigned PCP 12/05/17 09/30/19 [place] [address] [address] [place] [address] Assigned PCP 10/01/19 03/02/20 [place] [address] [address] GARCIA [address] Assigned PCP 03/03/20 05/25/20 [place] [address] [address] GARCIA [address] Assigned PCP 05/26/20 09/28/20 [place] [address] [place] GARCIA [address] Assigned PCP 09/29/20 07/31/22 Jesú[place] [address] 067157 Assigned Musculoskeletal Provider 10/20/20 04/17/22 Alfreda Ray PA-C [address] [place] [address] 88859372 Referring Physician Family Medicine 12/31/21 Katrin Orellana PA-C [address] [place] [address] 917295 Physician Medicaid Eligibility Specialist Dermatology 12/31/21 Shanna Vang PA-C [address] [place] [address] 402424 Assigned Cancer Care Provider 01/10/22 Fransisco Eddy MD [address] [place] [address] 806615 Assigned Rheumatology Provider 05/09/22 [place] [address] [address] [address] Assigned Pain Medication Provider 06/29/22 09/04/22 [place] [address] [address] [place] [address] Assigned PCP 08/15/22 08/28/22 Katrin Orellana PA-C [address] [place] [address] 749075 Assigned Surgical Provider 08/15/22 02/10/24 Cristina Hsieh, [facility] [address] [facility] [place] [address] Pharmacist Pharmacist 09/07/22 Alfreda Ray PA-C [address] [place] [address] Assigned Pain Medication Provider 09/05/22 09/10/23 Alfreda Ray PA-C [address] [place] [address] Assigned PCP 08/29/22 Cristina Hsieh [facility] [address] [place] [address] Assigned MTM Pharmacist 09/26/22 Dakota Tatum MD [address] [place] [address] Cardiovascular Disease 03/25/23 Dakota Tatum MD [address] [place] [address] Assigned Heart and Vascular Provider 05/01/23 [place] [address] [place] , [address] [address] Assigned Musculoskeletal Provider 04/12/24 documented as of this encounter
--- OUTSIDE RECORDS SUMMARY | 2024-07-28 12:42 | XMS_ITS | Encounter Summary ---
Author Organization [place] Address [address] [place] [address] 29456 Care Team Providers Care Tractor Driver Teamster Name Role Phone Esperanza Gatica MD Primary Care Provider + Esperanza Gatica MD Unavailable +[phone] Esperanza Gatica MD Unavailable +[phone] Esperanza Gatica MD Unavailable +[phone] Esperanza Gatica MD Unavailable +[phone] Esperanza Gatica MD Unavailable +[phone] Esperanza Gatica MD Unavailable +[phone] Jesús Orourke MD Unavailable Alfreda RayC Primary Care Provider + Alfreda Ray PA-C Unavailable + [phone] Katrin Orellana PA-C Unavailable +[phone] Shanna VangC Unavailable +[phone] Fransisco Eddy MD Unavailable +[phone] Esperanza Gatica MD Unavailable +[phone] Esperanza Gatica MD Unavailable +[phone] Katrin Orellana PA-C Unavailable Cristina Hsieh [facility] Unavailable Alfreda Ray PA-C Unavailable +[phone] Ray, Alfreda Liu PA-C Unavailable +[phone] Cristina Hsieh [facility] Unavailable Dakota Tatum MD Unavailable Dakota Tatum MD Unavailable Srinivas Marie Unavailable [phone] Encounter Details Date Type Department Care Team (Late st Contact Info) Description 02/27/2015 MyC Medical Advice [address], [address] [place] [address] Fartun Silveira Social History Tobacco Use Types Packs/Day Years Used Date Smoking Tobacco: Former Cigarettes 1 5 0 06/21/1968 - 06/21/1973 Smokeless Tobacco: Former Alcohol Use Standard Drinks/Week Comments Yes 0 (1 standard drink = 0.6 oz pure alcohol) Very occasionally - 2 per month Comments No Sex and Gender Information Value Date Recorded Sex Assigned at Female 08/17/2018 7:56 AM DRUG ENFORCEMENT ADMINISTRATION AGENT Legal Sex Female 4:24 AM DRUG ENFORCEMENT ADMINISTRATION AGENT Gender Identity Female 08/17/2018 7:56 AM DRUG ENFORCEMENT ADMINISTRATION AGENT Sexual Orientation Straight 08/17/2018 7: 56 AM DRUG ENFORCEMENT ADMINISTRATION AGENT documented as of this encounter Plan of Treatment Upcoming Encounters Date Type Department Care Team (Late Contact Info) Description 09/07/2024 10:00 AM CDT Office Visit [facility] [address] [place] [address] Fransisco Eddy MD [address] [place] [address] 88 [place] [address] 09/18/2024 2:00 PM CDT Virtual Visit [facility] [facility] [address] [place] [address] Shanna Vang PA-C [facility]2 . [address] [place] [address] 03/29/2025 3:40 PM CDT Office Visit [facility] [address] [place] [address] Alfreda Ray PA-C [address] [place] [address] documented as of this encounter Visit Diagnoses Not on filedocumented in this encounter Additional Health Concerns Infection Onset Date Last Indicated Resolved Time Rule Out COVID-19 05/08/2021 05/08/2021 05/09/2021 9:08 PM DRUG ENFORCEMENT ADMINISTRATION AGENT documented as of this encounter Care Teams Tractor Driver Teamster Relationship Specialty Start Date End Date Esperanza Gatica MD PCP - General Family Practice 10/13/11 12/29/21 [place] [address] LISBETH GARCIA [address] PCP - Assigned PCP 12/05/17 08/23/18 Alfreda Ray PA-C [address] [place] [address]14 PCP - General Family Medicine 12/30/21 [place] [address] LISB[address] GARCIA 30347 Assigned PCP 12/05/17 09/30/19 [place] [address] LISB[address] GARCIA 83944 Assigned PCP 10/01/19 03/02/20 [place] [address] [place] [address] Assigned PCP 03/03/20 05/25/20 [place] [address] [place] [address] Assigned PCP 05/26/20 09/28/20 [place] [address] [place] [address] Assigned PCP 09/29/20 07/31/22 Jesú[place] [address] [place], [place] 828[address] Assigned Musculoskeletal Provider 10/20/20 04/17/22 Alfreda Ray PA-C [address] [place] [address] 575482 Referring Physician Family Medicine 12/31/21 Katrin Orellana PA-C [address] [place] [address] [phone] Physician Technical Administrator Dermatology 12/31/21 Shanna Vang PA-C [address] [place] [address] [phone] Assigned Cancer Care Provider 01/10/22 Fransisco Eddy MD [address] [place] [address] [phone] Assigned Rheumatology Provider 05/09/22 [place] [address] [place] [address] Assigned Pain Medication Provider 06/29/22 09/04/22 [place] [address] [place] [address] Assigned PCP 08/15/22 08/28/22 Katrin Orellana PA-C [address] [place] [address] 072675 Assigned Surgical Provider 08/15/22 02/10/24 Cristina Hsieh [facility] [address] [place] [address] [place] [address] Pharmacist Pharmacist 09/07/22 Alfreda Ray PA-C [address] [place] [address] [phone] Assigned Pain Medication Provider 09/05/22 09/10/23 Alfreda Ray PA-C [address] [place] [address]14 Assigned PCP 08/29/22 Cristina Hsieh [facility] [address] [phone] Assigned MTM Pharmacist 09/26/22 Dakota Tatum MD 6 [place] [address] Cardiovascular Disease 03/25/23 Dakota Tatum MD [address] [place] [address] Assigned Heart and Vascular Provider 05/01/23 [place] [address] CE[address]AST[address], [address] [address] Assigned Musculoskeletal Provider 04/12/24 documented as of this encounter
--- OUTSIDE RECORDS SUMMARY | 2024-07-28 12:42 | XMS_ITS | Encounter Summary ---
Author Organization [place] Address [address] [place] [address] Care Team Providers Care Pit Shovel Operator Name Role Phone Esperanza Gatica MD Primary Care Provider + Esperanza Gatica MD Unavailable +[phone] Esperanza Gatica MD Unavailable +[phone] Esperanza Gatica MD Unavailable +[phone] Esperanza Gatica MD Unavailable +[phone] Esperanza Gatica MD Unavailable +[phone] Esperanza Gatica MD Unavailable +[phone] Jesús Orourke MD Unavailable Alfreda RayC Primary Care Provider + Alfreda Ray PA-C Unavailable + [phone] Katrin Orellana PA-C Unavailable +[phone] Shanna VangC Unavailable +[phone] Fransisco Eddy MD Unavailable +[phone] Esperanza Gatica MD Unavailable +[phone] Esperanza Gatica MD Unavailable +[phone] Katrin Orellana PA-C Unavailable [phone] Cristina Hsieh [facility] Unavailable Cory Alfreda Liu PA-C Unavailable +[phone] Ho Raymustapha Liu PA-C Unavailable +[phone] Cristina Hsieh [facility] Unavailable [phone] Dakota Tatum MD Unavailable [phone] Dakota Tatum MD Unavailable [phone] Srinivas Marie DO Unavailable [phone] Reason for Visit * Reason Onset Date Comments Refill Request 02/07/2015 Trazodone 50mg Encounter Details Date Type Department Care Team (Late st Contact Info) Description 02/07/2015 MyC Refill [address], [facility] 100 [place] [address] [place] [address] [place] [address] Refill Request (Trazodone 50mg) Social [...] Sex Assigned at Female 08/17/2018 7:56 AM DELIVERER PHARMACY Legal Sex Female 4:24 AM DELIVERER PHARMACY Gender Identity Female 08/17/2018 7:56 AM DELIVERER PHARMACY Sexual Orientation Straight 08/17/2018 7: 56 AM DELIVERER PHARMACY documented as of this encounter Miscellaneous Notes [...] MG tablet [Esperanza Gatica MD] Preferred pharmacy: [id number] - [address] Comment: documented in this encounter Plan of Treatment Upcoming Encounters Date Type Department Care Team (Late st Contact Info) Description 09/07/2024 10:00 AM CDT Office Visit [facility] [address] [place] [address] Fransisco Eddy MD [address] [place] [address] 88 [place] [address] 09/18/2024 2:00 PM CDT Virtual Visit [facility] [address] [place] [address] 105 [place] [address] Shanna Vang, PA-C [address] [place] [address] 288434 03/29/2025 3:40 PM CDT Office Visit [address] [place] [phone] Alfreda Ray PA-C [address] [place] [address] 411462 documented as of this encounter Visit Diagnoses Diagnosis Insomnia, unspecified documented in this encounter Additional Health Concerns Infection Onset Date Last Indicated Resolved Time Rule Out COVID-19 05/08/2021 05/08/2021 05/09/2021 9:08 PM DELIVERER PHARMACY documented as of this encounter Care Teams Pit Shovel Operator Relationship Specialty Start Date End Date Esperanza Gatica MD PCP - General Family Practice 10/13/11 12/29/21 [place] [address] [place] [address] PCP - Assigned PCP 12/05/17 08/23/18 Alfreda Ray PA-C [address] [place] [address] PCP - General Family Medicine 12/30/21 [place] [address] [place] [address] Assigned PCP 12/05/17 09/30/19 [place] [address] [place] [address] Assigned PCP 10/01/19 03/02/20 [place] [address] [place] [address] Assigned PCP 03/03/20 05/25/20 [place] [address] [place] [address] Assigned PCP 05/26/20 09/28/20 [place] [address] [place] [address] Assigned PCP 09/29/20 07/31/22 [place] [address] [place] [address] Assigned Musculoskeletal Provider 10/20/20 04/17/22 Alfreda Ray PA-C 4151 [place] [address] Referring Physician Family Medicine 12/31/21 Katrin Orellana PA-C [address] [place] [address] Physician Supervisor Remelt Dermatology 12/31/21 Shanna Vang PA-C [address] 150814 Assigned Cancer Care Provider 01/10/22 Fransisco Eddy MD [address] [place] [address] 885615 Assigned Rheumatology Provider 05/09/22 [place] [address] [place] [address] Assigned Pain Medication Provider 06/29/22 09/04/22 [place] [address] [place] [address] Assigned PCP 08/15/22 08/28/22 Katrin Orellana PA-C [address] [place] [address] Assigned Surgical Provider 08/15/22 02/10/24 Cristina Hsieh [facility] [address] [facility] LISBETH HERNANDEZ [address] Pharmacist Pharmacist 09/07/22 Alfreda Ray PA-C [address] [place] [address] 885512 Assigned Pain Medication Provider 09/05/22 09/10/23 Alfreda Ray PA-C [address] [place] [address] 053362 Assigned PCP 08/29/22 Cristina Hsieh, [facility] [address] [address] Assigned MTM Pharmacist 09/26/22 Dakota Tatum MD [address] [place] [address] Cardiovascular Disease 03/25/23 Dakota Tatum MD [address] [place] [address] Assigned Heart and Vascular Provider 05/01/23 [place] [address] [place] , [address] [address] Assigned Musculoskeletal Provider 04/12/24 documented as of this encounter
--- OUTSIDE RECORDS SUMMARY | 2024-07-28 12:42 | XMS_ITS | Encounter Summary ---
Author Organization [place] Address [address] [place] [address] Care Team Providers Care Clinical Systems Analyst Name Role Phone Alfreda Ray PA-C Primary Care Provider + Alfreda Ray PA-C Unavailable [phone] Katrin Orellana PA-C Unavailable [phone] Shanna Vang PA-C Unavailable +[phone] Fransisco Eddy MD Unavailable [phone] Katrin Orellana PA-C Unavailable [phone] Cristina Hsieh [facility] Unavailable [phone] Alfreda Ray PA-C Unavailable [phone] Cristina Hsieh [facility] Unavailable [phone] Dakota Tatum MD Unavailable [phone] Dakota Tatum MD Unavailable +[phone] Srinivas Marie DO Unavailable [phone] Encounter Details Date Type Department Care Team (Late st Contact Info) Description 11/09/2023 Migdalia Salazar [facility] [address] [address] Cristina Hsieh, [facility] [address] [address] Social History Tobacco Use Types [...] Sex Assigned at Female 08/17/2018 7:56 AM CEMENT GRINDING MILL OPERATOR Legal Sex Female 4:24 AM CEMENT GRINDING MILL OPERATOR Gender Identity Female 08/17/2018 7:56 AM CEMENT GRINDING MILL OPERATOR Sexual Orientation Straight 08/17/2018 7: 56 AM CEMENT GRINDING MILL OPERATOR documented as of this encounter Plan of Treatment Upcoming Encounters Date Type Department Care Team (Late st Contact Info) Description 09/07/2024 10:00 AM CDT Office Visit [facility] [place] [address] [place] [address] 200 [place] [address] Fransisco Eddy MD [address] [place] [address] 88 [place] [address] 09/18/2024 2:00 PM CDT Virtual Visit [facility] [address] [place] [address] 105 [place] [address] Shanna Vang PA-C [address] [place] [address] 03/29/2025 3:40 PM CDT Office Visit [address] [address] Alfreda Ray PA-C [address] [place] [address] documented as of this encounter Visit Diagnoses Not on filedocumented in this encounter Additional Health Concerns Assessment Noted Time PHQ-9 Depression Total Score: 5 03/09/20 23 10:57 AM CDT documented as of this encounter Care Teams Clinical Systems Analyst Relationship Specialty Start Date End Date Alfreda Ray PA-C [address] [place] [address] PCP - General Family Medicine 12/30/21 Alfreda Ray PA-C [address] [place] [address] Referring Physician Family Medicine 12/31/21 Katrin Orellana PA-C [address] [facility] 98 [place], [place] 543055 Physician Appraisal Analyst Dermatology 12/31/21 Shanna Vang PA-C [address] [place], [place] 402714 Assigned Cancer Care Provider 01/10/22 Fransisco Eddy MD [address] 665265 Assigned Rheumatology Provider 05/09/22 Katrin Orellana PA-C [address] 080355 Assigned Surgical Provider 08/15/22 02/10/24 Cristina Hsieh [facility] [address] [facility] [address] [place] [phone] Pharmacist Pharmacist 09/07/22 Alfreda Ray PA-C [address] [place] [address] 325542 Assigned PCP 08/29/22 Cristina Hsieh [facility] [address] [phone] Assigned MTM Pharmacist 09/26/22 Dakota Tatum MD [address] [place] [address] Cardiovascular Disease 03/25/23 Dakota Tatum MD [address] [place] [address] Assigned Heart and Vascular Provider 05/01/23 [place] [address] [address], [address] [address] Assigned Musculoskeletal Provider 04/12/24 documented as of this encounter
--- OUTSIDE RECORDS SUMMARY | 2024-07-28 12:42 | XMS_ITS | Encounter Summary ---
Author Organization [place] Address [address] [place] [address] Care Team Providers Care Commercial Manager Name Role Phone Esperanza Gatica MD Primary Care Provider + Esperanza Gatica MD Unavailable +[phone] Esperanza Gatica MD Unavailable +[phone] Esperanza Gatica MD Unavailable +[phone] Esperanza Gatica MD Unavailable +[phone] Esperanza Gatica MD Unavailable +[phone] Esperanza Gatica MD Unavailable +[phone] Jesús Orourke MD Unavailable Alfreda RayC Primary Care Provider + Alfreda Ray PA-C Unavailable + [phone] Katrin Orellana PA-C Unavailable [phone] Shanna VangC Unavailable +[phone] Fransisco Eddy MD Unavailable [phone] Esperanza Gatica MD Unavailable +[phone] Esperanza Gatica MD Unavailable +[phone] Katrin Orellana PA-C Unavailable Cristina Hsieh [facility] Unavailable RayAlfreda PA-C Unavailable [phone] Cory Alfreda Liu PA-C Unavailable [phone] Cristina Hsieh [facility] Unavailable Dakota Tatum MD Unavailable Dakota Tatum MD Unavailable Srinivas Marie DO Unavailable [phone] Encounter Details Date Type Department Care Team (Late st Contact Info) Description 06/30/2016 MyC Medical Advice [address], [address] [place] [address] [place] [address] [place] [address] Social History Tobacco Use Types [...] Assigned at Female 08/17/2018 7:56 AM WAREHOUSE REPRESENTATIVE Legal Sex Female 4:24 AM WAREHOUSE REPRESENTATIVE Gender Identity Female 08/17/2018 7:56 AM WAREHOUSE REPRESENTATIVE Sexual Orientation Straight 08/17/2018 7: 56 AM WAREHOUSE REPRESENTATIVE documented as of this encounter Plan of Treatment Upcoming Encounters Date Type Department Care Team (Late st Contact Info) Description 09/07/2024 10:00 AM CDT Office Visit [facility] [address] [address] Fransisco Eddy MD [address] [place] [address] 09/18/2024 2:00 PM CDT Virtual Visit [facility] [address] [place] [address] Shanna Vang PA-C [address] [place] [address] 03/29/2025 3:40 PM CDT Office Visit [address] [place] [address] Alfreda Ray PA-C [address] [place] [address] 957482 documented as of this encounter Visit Diagnoses Not on filedocumented in this encounter Additional Health Concerns Infection Onset Date Last Indicated Resolved Time Rule Out COVID-19 05/08/2021 05/08/2021 05/09/2021 9:08 PM WAREHOUSE REPRESENTATIVE Assessment Noted Time PHQ-9 Depression Total Score: 0 08/14/19 16 8:10 AM WAREHOUSE REPRESENTATIVE documented as of this encounter Care Teams Commercial Manager Relationship Specialty Start Date End Date Esperanza Gatica MD PCP - General Family Practice 10/13/11 12/29/21 [place] [address] LISB[address] GARCIA [address] PCP - Assigned PCP 12/05/17 08/23/18 Alfreda Ray PA-C [address] [place] [address]84 PCP - General Family Medicine 12/30/21 [place] [address] [address] GARCIA [address] Assigned PCP 12/05/17 09/30/19 [place] [address] [address] [place] GAFFNEY [address] Assigned PCP 10/01/19 03/02/20 [place] [address] [place] [address] Assigned PCP 03/03/20 05/25/20 [place] [address] [address] GARCIA [address] Assigned PCP 05/26/20 09/28/20 [place] [address] [place] [address] Assigned PCP 09/29/20 07/31/22 Jesú[place] [address] [place], [place] 466637 Assigned Musculoskeletal Provider 10/20/20 04/17/22 Alfreda Ray PA-C [address] [place] [address] 480352 Referring Physician Family Medicine 12/31/21 Katrin Orellana PA-C [address] [place] [address] [phone] Physician [place] Tribunal Member Dermatology 12/31/21 Shanna Vang PA-C [facility] [address] 534774 Assigned Cancer Care Provider 01/10/22 Fransisco Eddy MD [address] [place] [address] Assigned Rheumatology Provider 05/09/22 [place] [address] [place] [address] Assigned Pain Medication Provider 06/29/22 09/04/22 [place] [address] [place] [address] Assigned PCP 08/15/22 08/28/22 Katrin Orellana PA-C [address] [place] [address] Assigned Surgical Provider 08/15/22 02/10/24 Cristina Hsieh [facility] [address] [place] [address] [place] [address] Pharmacist Pharmacist 09/07/22 Alfreda Ray PA-C [address] [place] [address] Assigned Pain Medication Provider 09/05/22 09/10/23 Alfreda Ray PA-C [address] [place] [address] Assigned PCP 08/29/22 Cristina Hsieh [facility] [address] [phone] Assigned MTM Pharmacist 09/26/22 Dakota Tatum MD [address] [place] [address] [phone] Cardiovascular Disease 03/25/23 Dakota Tatum MD [address] [place] [address] [phone] Assigned Heart and Vascular Provider 05/01/23 [place] [address] [address]AST[address]UM, [address] [address] Assigned Musculoskeletal Provider 04/12/24 documented as of this encounter
--- OUTSIDE RECORDS SUMMARY | 2024-07-28 12:42 | XMS_ITS | Encounter Summary ---
Author Organization [facility] Address [address] [place] [address] Care Team Providers Care Clothing Cutter Name Role Phone Esperanza Gatica MD Primary Care Provider + Esperanza Gatica MD Unavailable +[phone] Esperanza Gatica MD Unavailable +[phone] Esperanza Gatica MD Unavailable +753 Esperanza Gatica MD Unavailable +457 Esperanza Gatica MD Unavailable +[phone] Esperanza Gatica MD Unavailable +[phone] Jesús Orourke MD Unavailable Alfreda RayC Primary Care Provider + Alfreda Ray PA-C Unavailable + [phone] Katrin Orellana PA-C Unavailable +[phone] Shanna VangC Unavailable +[phone] Fransisco Eddy MD Unavailable +[phone] Esperanza Gatica MD Unavailable +[phone] Esperanza Gatica MD Unavailable +[phone] Katrin Orellana PA-C Unavailable [facility] Unavailable +[phone] RayAlfreda PA-C Unavailable +[phone] Cory Alfreda Liu PA-C Unavailable +[phone] [facility] Unavailable +[phone] Dakota Tatum MD Unavailable [phone] Dakota Tatum MD Unavailable +[phone] Srinivas Marie DO Unavailable [phone] Reason for Visit * Reason Onset Date Comments Refill Request 02/07/2015 Zolpidem 5mg Encounter Details Date Type Department Care Team (Late st Contact Info) Description 02/07/2015 MyC Refill [address], [facility] 100 [place] [address] [place] [address] [place] [address] Refill Request (Zolpidem 5mg) Social [...] Sex Assigned at Female 08/17/2018 7:56 AM LICENSED LAND SURVEYOR Legal Sex Female 4:24 AM LICENSED LAND SURVEYOR Gender Identity Female 08/17/2018 7:56 AM LICENSED LAND SURVEYOR Sexual Orientation Straight 08/17/2018 7: 56 AM LICENSED LAND SURVEYOR documented as of this encounter Miscellaneous Notes * Telephone Encounter - Leigha Rinaldi RN - 02/07/2015 1:27 PM CDT Zolpidem 5mg Last Written Prescription Date: 12/06/2014 Last Fill Quantity: 90, # refills: 2 Last Office Visit with [facility] primary care provider: 12/06/2014 Future Office visit: [...] Preferred pharmacy: [id number] Comment: documented in this encounter Plan of Treatment Upcoming Encounters Date Type Department Care Team (Late st Contact Info) Description 09/07/2024 10:00 AM CDT Office Visit [facility] [address] 200 [place] [address] Fransisco Eddy MD [address] [place] [address] 88 [place], [place] 227235 09/18/2024 2:00 PM CDT Virtual Visit [facility] for Bleeding [facility]ot[facility] [address] [place] [address] 105 [place] [address] Shanna Vang PA-C [address] [place] [address] 03/29/2025 3:40 PM CDT Office Visit [facility] [address] [place] [address] [place] [phone] Alfreda Ray PA-C [address] [place] [address] 477462 documented as of this encounter Visit Diagnoses Diagnosis Insomnia, unspecified documented in this encounter Additional Health Concerns Infection Onset Date Last Indicated Resolved Time Rule Out COVID-19 05/08/2021 05/08/2021 05/09/2021 9:08 PM LICENSED LAND SURVEYOR documented as of this encounter Care Teams Clothing Cutter Relationship Specialty Start Date End Date Esperanza Gatica MD PCP - General Family Practice 10/13/11 12/29/21 [place] [address] [place] [address] PCP - Assigned PCP 12/05/17 08/23/18 Alfreda Ray PA-C [address] [place] [address] PCP - General Family Medicine 12/30/21 [place] [address] [place] [address] Assigned PCP 12/05/17 09/30/19 [place] [address] [place] [address] Assigned PCP 10/01/19 03/02/20 [place] [address] [place] [address] Assigned PCP 03/03/20 05/25/20 [place] [address] [place] [address] Assigned PCP 05/26/20 09/28/20 [place] [address] [place] [address] Assigned PCP 09/29/20 07/31/22 Jesú[place] [address] [place] [address] Assigned Musculoskeletal Provider 10/20/20 04/17/22 Alfreda Ray PA-C [address] [place], [place] 559[address] Referring Physician Family Medicine 12/31/21 Katrin Orellana PA-C [address] [place] [address] 98 [place], [place] 17[address]65 Physician Tool Drawing Checker Dermatology 12/31/21 Shanna Vang PA-C [address] 285[address] Assigned Cancer Care Provider 01/10/22 Fransisco Eddy MD [address] [place] [address] 563895 Assigned Rheumatology Provider 05/09/22 [place] [address] [place] [address] Assigned Pain Medication Provider 06/29/22 09/04/22 [place] [address] [place] [address] Assigned PCP 08/15/22 08/28/22 Katrin Orellana PA-C 420 [facility] 98 [place] [address] Assigned Surgical Provider 08/15/22 02/10/24 Cristina Hsie[facility], [facility] 3305 [facility] [place]BETH HERNANDEZ [address] Pharmacist Pharmacist 09/07/22 Alfreda Ray PA-C [address] [place] [address] 582932 Assigned Pain Medication Provider 09/05/22 09/10/23 Alfreda Ray PA-C [address] [place] [address] 095252 Assigned PCP 08/29/22 Cristina Hsieh, [facility] [address] [address] Assigned MTM Pharmacist 09/26/22 Dakota Tatum MD 6 [place] [address] Cardiovascular Disease 03/25/23 Dakota Tatum MD 6 [place] [address] Assigned Heart and Vascular Provider 05/01/23 [place] [address] [address] , [facility] 300 [place] [address] Assigned Musculoskeletal Provider 04/12/24 documented as of this encounter
--- OUTSIDE RECORDS SUMMARY | 2024-07-28 12:42 | XMS_ITS | Encounter Summary ---
Author Organization [place] Address [address] [place] [address] Care Team Providers Care Surfboard Designer Name Role Phone Esperanza Gatica MD Primary Care Provider + Esperanza Gatica MD Unavailable +[phone] Esperanza Gatica MD Unavailable +475 Esperanza Gatica MD Unavailable +372 Esperanza Gatica MD Unavailable +454 Esperanza Gatica MD Unavailable +419 Esperanza Gatica MD Unavailable +[phone] Jesús Orourke MD Unavailable Alfreda RayC Primary Care Provider + Alfreda Ray PA-C Unavailable + [phone] Katrin Orellana PA-C Unavailable [phone] Shanna VangC Unavailable +[phone] Fransisco Eddy MD Unavailable [phone] Esperanza Gatica MD Unavailable +[phone] Esperanza Gatica MD Unavailable +[phone] Katrin Orellana PA-C Unavailable Cristina Hsieh [facility] Unavailable Cory Alfreda Liu PA-C Unavailable +[phone] Ho Raymustapha Liu PA-C Unavailable +[phone] Cristina Hsieh [facility] Unavailable [phone] Dakota Tatum MD Unavailable [phone] Dakota Tatum MD Unavailable [phone] Srinivas Marie DO Unavailable [phone] Reason for Visit * Reason Onset Date Comments Refill Request 03/12/2016 Lisinopril-HCTZ Encounter Details Date Type Department Care Team (Late st Contact Info) Description 03/12/2016 MyC Refill [address], [address] [place] [address] [place] [address] [place] [address] Refill Request (Lisinopril-HCTZ) Social History [...] Assigned at Female 08/17/2018 7:56 AM HOUSE PAINTER Legal Sex Female 4:24 AM HOUSE PAINTER Gender Identity Female 08/17/2018 7:56 AM HOUSE PAINTER Sexual Orientation Straight 08/17/2018 7: 56 AM HOUSE PAINTER documented as of this encounter Miscellaneous Notes * Telephone Encounter - Leigha Rinaldi RN - 03/12/2016 11:44 AM CDT Lisinopril-HCTZ Last Written Prescription Date: 08/13/2015 Last Fill Quantity: 90, # refills: 1 Last Office Visit with [facility] prescribing provider: 03/03/2016 POTASSIUM Date Value Ref Range Status 08/13/2015 3.9 3.4 - 5.3 mmol/L Final CREATININE Date Value Ref Range Status 08/13/2015 0.87 0.52 - 1.04 mg/dL Final BP Readings from Last 3 Encounters: 03/03/16 134/64 08/13/15 136/66 04/08/15 112/60 Prescription [facility] Refill Protocol. Leigha Rinaldi RN * Telephone Encounter - Leigha Rinaldi RN - 03/12/2016 11:44 AM CDTMessage from [facility]: Original authorizing provider: MD [place] Brannon would like a refill of the following medications: lisinopril-hydrochlorothiazide (PRINZIDE,ZESTORETIC) 10-12.5 MG per tablet [Esperanza Gatica MD] Preferred pharmacy: [facility] [address] Comment: documented in this encounter Plan of Treatment Upcoming Encounters Date Type Department Care Team (Late st Contact Info) Description 09/07/2024 10:00 AM CDT Office Visit [facility] [address] 200 [place] [phone] Fransisco Eddy MD [address] [place] [address]35 09/18/2024 2:00 PM CDT Virtual Visit [facility]2 [address] [place] [address] 105 [place] [phone] Shanna Vang, PAFilemonC [address] [address] 03/29/2025 3:40 PM CDT Office Visit [address] [phone] Alfreda Ray PA-C [address] [place] [address] documented as of this encounter Visit Diagnoses Diagnosis HTN (hypertension), benign Essential hypertension, benign documented in this encounter Additional Health Concerns Infection Onset Date Last Indicated Resolved Time Rule Out COVID-19 05/08/2021 05/08/2021 05/09/2021 9:08 PM HOUSE PAINTER Assessment Noted Time PHQ-9 Depression Total Score: 0 08/14/19 16 8:10 AM HOUSE PAINTER documented as of this encounter Care Teams Surfboard Designer Relationship Specialty Start Date End Date Esperanza Gatica MD PCP - General Family Practice 10/13/11 12/29/21 [place] [address] [place] GARCIA [address] PCP - Assigned PCP 12/05/17 08/23/18 Alfreda Ray PA-C [address] [place] [address] PCP - General Family Medicine 12/30/21 [place] [address] [place]ARCIA [address] Assigned PCP 12/05/17 09/30/19 [place] [address] [place] [address] Assigned PCP 10/01/19 03/02/20 [place] [address] [place] [address] Assigned PCP 03/03/20 05/25/20 [place] [address] [place] [address] Assigned PCP 05/26/20 09/28/20 [place] [address] [place]ARCIA [address] Assigned PCP 09/29/20 07/31/22 [place] [address] [place] [address] [address] Assigned Musculoskeletal Provider 10/20/20 04/17/22 Alfreda Ray PA-C [address] [place] [address] Referring Physician Family Medicine 12/31/21 Katrin Orellana PA-C [address] [place] [address] Physician Liquor Clerk Dermatology 12/31/21 Shanna Vang PA-C [address] [address] Assigned Cancer Care Provider 01/10/22 Fransisco Eddy MD [address] [place] [address] Assigned Rheumatology Provider 05/09/22 [place] [address] [place]ARC[place] [address] Assigned Pain Medication Provider 06/29/22 09/04/22 [place] [address] [place] [address] Assigned PCP 08/15/22 08/28/22 Katrin Orellana PA-C [address] [place] [address] Assigned Surgical Provider 08/15/22 02/10/24 Cristina Hsieh [facility] [address] [place] [address] L[place]BETH HERNANDEZ [address] Pharmacist Pharmacist 09/07/22 Alfreda Ray PA-C [address] [place] [address] Assigned Pain Medication Provider 09/05/22 09/10/23 Alfreda Ray PA-C [address] [place] [address] Assigned PCP 08/29/22 Cristina Hsieh [facility] [address] [address] Assigned MTM Pharmacist 09/26/22 Dakota Tatum MD [address] [place] [address] 504285 Cardiovascular Disease 03/25/23 Dakota Tatum MD [address] [place] [address] 652625 Assigned Heart and Vascular Provider 05/01/23 [place] [address] [address], [address] [address] Assigned Musculoskeletal Provider 04/12/24 documented as of this encounter
--- OUTSIDE RECORDS SUMMARY | 2024-07-28 12:42 | XMS_ITS | Encounter Summary ---
Author Organization [place] Address [address] [place] [address] Care Team Providers Care Cork Tile Floor Layer Name Role Phone Esperanza Gatica MD Primary Care Provider + Esperanza Gatica MD Unavailable +[phone] Espernaza Gatica MD Unavailable +[phone] Esperanza Gatica MD Unavailable +[phone] Esperanza Gatica MD Unavailable +[phone] Esperanza Gatica MD Unavailable +817 Esperanza Gatica MD Unavailable +[phone] Jesús Orourke MD Unavailable Alfreda RayC Primary Care Provider + Alfreda Ray PA-C Unavailable + [phone] Katrin Orellana PA-C Unavailable [phone] Shanna VangC Unavailable +[phone] Fransisco Eddy MD Unavailable [phone] Esperanza Gatica MD Unavailable +[phone] Esperanza Gatica MD Unavailable +[phone] Katrin Orellana PA-C Unavailable Cristina sHieh [facility] Unavailable Cory Alfreda Liu PA-C Unavailable Ho Raymustapha Liu PA-C Unavailable [phone] Cristina Hsieh [facility] Unavailable Dakota Tatum MD Unavailable Dakota Tatum MD Unavailable Srinivas Marie DO Unavailable [phone] Reason for Visit * Reason Onset Date Comments Sinus Problem 06/30/2016 Requesting antib iotic Encounter Details Date Type Department Care Team (Late st Contact Info) Description 06/30/2016 MyC Medical Advice [address], [facility] 100 [place] [address] [place] [address] [place] [address] Sinus Problem (Requesting antibiotic) Social [...] Sex Assigned at Female 08/17/2018 7:56 AM ORDNANCE OFFICER Legal Sex Female 4:24 AM ORDNANCE OFFICER Gender Identity Female 08/17/2018 7:56 AM ORDNANCE OFFICER Sexual Orientation Straight 08/17/2018 7: 56 AM ORDNANCE OFFICER documented as of this encounter Miscellaneous Notes * Telephone Encounter - Leigha Rinaldi RN - 06/30/2016 11:34 AM CST Called patient and advised Dr. Gatica would see her if she came over now. Leigha Rinaldi RN ANCE OFFICER * Telephone Encounter - Esperanza Gatica MD - 06/30/2016 9:03 AM ORDNANCE OFFICER Recommend appointment with me. I recommend we do an exam, to double check ears, throat, lungs etc. ianmbalta was started in feb and recommended follow up for that med, we can discuss this as well. Any way she can come in today? ANCE OFFICER documented in this encounter Plan of Treatment Upcoming Encounters Date Type Department Care Team (Late st Contact Info) Description 09/07/2024 10:00 AM CDT Office Visit [facility] [address] 200 [place] [phone] Fransisco Eddy MD [address] [place] [address] 88 [place] [address] 09/18/2024 2:00 PM CDT Virtual Visit [facility] [address] [place] [address] 105 [place] [address] Shanna Vang PAFilemonC [address] [place] [address] 03/29/2025 3:40 PM CDT Office Visit [address] [place] [phone] Alfreda Ray PA-C [address] [place] [address] 006342 documented as of this encounter Visit Diagnoses Not on filedocumented in this encounter Additional Health Concerns Infection Onset Date Last Indicated Resolved Time Rule Out COVID-19 05/08/2021 05/08/2021 05/09/2021 9:08 PM ORDNANCE OFFICER Assessment Noted Time PHQ-9 Depression Total Score: 0 08/14/19 16 8:10 AM ORDNANCE OFFICER documented as of this encounter Care Teams Cork Tile Floor Layer Relationship Specialty Start Date End Date Esperanza Gatica MD PCP - General Family Practice 10/13/11 12/29/21 [place] [address] [place] [address] PCP - Assigned PCP 12/05/17 08/23/18 Alfreda Ray PA-C [address] [place] [address], [place] [address] PCP - General Family Medicine 12/30/21 [place] [address] [place] [address] Assigned PCP 12/05/17 09/30/19 [place] [address] [place] [address] Assigned PCP 10/01/19 03/02/20 [place] [address] [place] [address] Assigned PCP 03/03/20 05/25/20 [place] [address] [place] [address] Assigned PCP 05/26/20 09/28/20 [place] [address] [place] [address] Assigned PCP 09/29/20 07/31/22 [place] [address] [place] [address] [place] [address] Assigned Musculoskeletal Provider 10/20/20 04/17/22 Alfreda Ray PA-C [address] [place] [address] 724502 Referring Physician Family Medicine 12/31/21 Katrin Orellana PA-C [address] [place] [address] 530845 Physician Compacting Machine Operator/Tender Dermatology 12/31/21 Shanna Vang PA-C [address] 633214 Assigned Cancer Care Provider 01/10/22 Fransisco Eddy MD [address] [place] [address] 187085 Assigned Rheumatology Provider 05/09/22 [place] [address] [place]ARCIA [address] Assigned Pain Medication Provider 06/29/22 09/04/22 [place] [address] [place]ARC[place] [address] Assigned PCP 08/15/22 08/28/22 Katrin Orellana PA-C [address] [place] [address] 295735 Assigned Surgical Provider 08/15/22 02/10/24 Cristina Hsieh, [facility] 3305 [facility] L[place]BETH HERNANDEZ [address] Pharmacist Pharmacist 09/07/22 Alfreda Ray PA-C [address] [place] [address] 498282 Assigned Pain Medication Provider 09/05/22 09/10/23 Alfreda Ray PA-C [address] [place] [address] 930542 Assigned PCP 08/29/22 Cristina Hsieh [facility] [address] [place] [address] [address] Assigned MTM Pharmacist 09/26/22 Dakota Tatum MD [address] [place] [address] Cardiovascular Disease 03/25/23 Dakota Tatum MD [address] [place] [address] Assigned Heart and Vascular Provider 05/01/23 [place] [address] [address], [address] [address] Assigned Musculoskeletal Provider 04/12/24 documented as of this encounter
--- OUTSIDE RECORDS SUMMARY | 2024-07-28 12:42 | XMS_ITS | Encounter Summary ---
Author Organization [facility] Address [address] [place] [address] Care Team Providers Care Fruit Or Nut Picker Name Role Phone Esperanza Gatica MD Primary Care Provider + Esperanza Gatica MD Unavailable +[phone] Esperanza Gatica MD Unavailable +858 Esperanza Gatica MD Unavailable +033 Esperanza Gatica MD Unavailable +021 Esperanza Gtaica MD Unavailable +040 Esperanza Gatica MD Unavailable +[phone] Jesús Orourke MD Unavailable Alfreda RayC Primary Care Provider + Alfreda Ray PA-C Unavailable + [phone] Katrin Orellana PA-C Unavailable [phone] Shanna VangC Unavailable +[phone] Fransisco Eddy MD Unavailable [phone] Esperanza Gatica MD Unavailable +[phone] Esperanza Gatica MD Unavailable +[phone] Katrin Orellana PA-C Unavailable Cristina Hsieh [facility] Unavailable Cory Alfreda Liu PA-C Unavailable Ho Raymustapha Liu PA-C Unavailable [phone] Cristina Hsieh [facility] Unavailable Dakota Tatum MD Unavailable Dakota Tatum MD Unavailable [phone] Srinivas Marie DO Unavailable Reason for Visit * Reason Onset Date Comments Refill Request 01/20/2015 Simvastatin 20mg Encounter Details Date Type Department Care Team (Late st Contact Info) Description 01/20/2015 MyC Refill [address], [facility] 100 [place] [address] [place] [address] [facility] [place] [address] Refill Request (Simvastatin 20mg) Social [...] Sex Assigned at Female 08/17/2018 7:56 AM BREWER HELPER Legal Sex Female 4:24 AM BREWER HELPER Gender Identity Female 08/17/2018 7:56 AM BREWER HELPER Sexual Orientation Straight 08/17/2018 7: 56 AM BREWER HELPER documented as of this encounter Miscellaneous Notes * Telephone Encounter - Leigha Rinaldi RN - 01/21/2015 8:04 AM CDT Simvastatin Last Written Prescription Date: 07/10/2014 Last Fill Quantity: 90, # refills: 1 Last Office Visit with [facility] primary care provider: 12/06/2014 CHOL 137 07/10/2014 HDL 54 07/10/2014 LDL 62 07/10/2014 TRIG 105 07/10/2014 CHOLHDLRATIO 2.5 07/10/2014 Prescription approved per [facility] Refill Protocol. Leigha Rinaldi RN * Telephone Encounter - Leigha Rinaldi RN - 01/21/2015 8:03 AM [facility] Original authorizing provider: MD [place] Brannon would like a refill of the following medications: simvastatin (ZOCOR) 20 MG tablet [Esperanza Gatica MD] Preferred pharmacy: [id number] - [address] Comment: documented in this encounter Plan of Treatment Upcoming Encounters Date Type Department Care Team (Late st Contact Info) Description 09/07/2024 10:00 AM CDT Office Visit [facility] [address] 200 [place] [phone] Fransisco Eddy MD [address] [place] [address] 88 [place] [address] 09/18/2024 2:00 PM CDT Virtual Visit [facility] [address] 105 [place] [address] Shanna Vang, PARobinson [address] [place] [address] 265204 03/29/2025 3:40 PM CDT Office Visit [facility] [address] [place] [address] [place] [phone] Alfreda Ray PA-C [address] [place] [address] 449022 documented as of this encounter Visit Diagnoses Diagnosis Hyperlipidemia LDL goal <160 Other and unspecified hyperlipidemia documented in this encounter Additional Health Concerns Infection Onset Date Last Indicated Resolved Time Rule Out COVID-19 05/08/2021 05/08/2021 05/09/2021 9:08 PM BREWER HELPER documented as of this encounter Care Teams Fruit Or Nut Picker Relationship Specialty Start Date End Date Esperanza Gatica MD PCP - General Family Practice 10/13/11 12/29/21 [place] [address] [place] [address] PCP - Assigned PCP 12/05/17 08/23/18 Alfreda Ray PA-C [address] [place] [address] PCP - General Family Medicine 12/30/21 [place] [address] [place] [address] Assigned PCP 12/05/17 09/30/19 [place] [address] [place] [address] Assigned PCP 10/01/19 03/02/20 [place] [address] [place] [address] Assigned PCP 03/03/20 05/25/20 [place] [address] [place] [address] Assigned PCP 05/26/20 09/28/20 [place] [address] [place] [address] Assigned PCP 09/29/20 07/31/22 Jesú[place] [address] [place] [address] Assigned Musculoskeletal Provider 10/20/20 04/17/22 Alfreda Ray PA-C 4151 [place], [place] 307062 Referring Physician Family Medicine 12/31/21 Katrin Orellana PA-C 420 [facility] 98 [place], [place] [address] Physician Denitrator Operator Dermatology 12/31/21 Shanna Vang PA-C [address] [place] [address] [id number] Assigned Cancer Care Provider 01/10/22 Fransisco Eddy MD [address] [place] [address] 087265 Assigned Rheumatology Provider 05/09/22 [place] [address] [place]ARC[place] [address] Assigned Pain Medication Provider 06/29/22 09/04/22 [place] [address] [place] [address] Assigned PCP 08/15/22 08/28/22 Katrin Orellana PA-C 420 [facility] 98 [place] [address] Assigned Surgical Provider 08/15/22 02/10/24 Cristina Hsieh [facility] 3305 [facility] L[place]BETH [place]NANDEZ [address] Pharmacist Pharmacist 09/07/22 Alfreda Ray PA-C [address] [place] [address] 688032 Assigned Pain Medication Provider 09/05/22 09/10/23 Alfreda Ray PA-C [address] [place] [address] 770402 Assigned PCP 08/29/22 Cristina Hsieh [facility] [address] [address] Assigned MTM Pharmacist 09/26/22 Dakota Tatum MD [address] [place] [address] Cardiovascular Disease 03/25/23 Dakota Tatum MD 6 [place] [address] Assigned Heart and Vascular Provider 05/01/23 [place] [address] [address] , [facility] 300 [place] [address] Assigned Musculoskeletal Provider 04/12/24 documented as of this encounter
--- OUTSIDE RECORDS SUMMARY | 2024-07-28 12:43 | XMS_ITS | Encounter Summary ---
Author Organization [place] Address [address] [place] [address] 20698 Care Team Providers Care Dietetics Director Name Role Phone Esperanza Gatica MD Primary Care Provider + Esperanza Gatica MD Unavailable +[phone] Esperanza Gatica MD Unavailable +[phone] Esperanza Gatica MD Unavailable +[phone] Esperanza Gatica MD Unavailable +[phone] Esperanza Gatica MD Unavailable +[phone] Esperanza Gatica MD Unavailable +[phone] Jesús Orourke MD Unavailable Alfreda aRyC Primary Care Provider + Alfreda Ray PA-C Unavailable + [phone] Katrin Orellana PA-C Unavailable +[phone] Shanna VangC Unavailable +[phone] Fransisco Eddy MD Unavailable +[phone] Esperanza Gatica MD Unavailable +[phone] Esperanza Gatica MD Unavailable +[phone] Katrin Orellana PA-C Unavailable Cristina Hsieh [facility] Unavailable Cory Alfreda Liu PA-C Unavailable +[phone] Ho Raymustapha Liu PA-C Unavailable +[phone] Cristina Hsieh [facility] Unavailable +[phone] Dakota Tatum MD Unavailable +[phone] Dakota Tatum MD Unavailable [phone] Srinivas Marie DO Unavailable [phone] Reason for Visit * Reason Onset Date Comments Refill Request 02/28/2015 Tramadol 50mg Encounter Details Date Type Department Care Team (Late st Contact Info) Description 02/28/2015 MyC Refill [address], [facility] [address] [place] [address] [place] [address] [place] [address] Refill Request (Tramadol 50mg) Social [...] Sex Assigned at Female 08/17/2018 7:56 AM CUSTOMER SERVICE AND SALES CONSULTANT Legal Sex Female 4:24 AM CUSTOMER SERVICE AND SALES CONSULTANT Gender Identity Female 08/17/2018 7:56 AM CUSTOMER SERVICE AND SALES CONSULTANT Sexual Orientation Straight 08/17/2018 7: 56 AM CUSTOMER SERVICE AND SALES CONSULTANT documented as of this encounter Miscellaneous Notes * Telephone Encounter - Leigha Rinaldi RN - 02/28/2015 10:08 AM CDT Tramadol 50mg Last Written Prescription Date: 12/06/2014 Last Fill Quantity: 90, # refills: 0 Last Office Visit with [facility] primary care provider: 12/06/2014 Future Office visit: Routing refill request to provider for review/approval because: Drug not on the [facility] refill protocol or controlled substance. Leigha Rinaldi RN * Telephone Encounter - Leigha Rinaldi RN - 02/28/2015 10:07 AM [facility] Original authorizing provider: Esperanza Gatica MD Alexandria Bradshaw would like a refill of the following medications: traMADol (ULTRAM) 50 MG tablet [Esperanza Gatica MD] Preferred pharmacy: [id number] [address] Comment: documented in this encounter Plan of Treatment Upcoming Encounters Date Type Department Care Team (Late st Contact Info) Description 09/07/2024 10:00 AM CDT Office Visit [facility] [address] [phone] Fransisco Eddy MD [address] [place] [address] 88 [place] [address] 09/18/2024 2:00 PM CDT Virtual Visit [facility] [address] [place] [address] Shanna Vang PARobinson [address] [address] 03/29/2025 3:40 PM CDT Office Visit [address] [place] [phone] Alfreda Ray PA-C [address] [place] [address] 102362 documented as of this encounter Visit Diagnoses Diagnosis HTN (hypertension), benign Essential hypertension, benign documented in this encounter Additional Health Concerns Infection Onset Date Last Indicated Resolved Time Rule Out COVID-19 05/08/202105/0805/08/2021 05/09/2021 9:08 PM CUSTOMER SERVICE AND SALES CONSULTANT documented as of this encounter Care Teams Dietetics Director Relationship Specialty Start Date End Date Esperanza Gatica MD PCP - General Family Practice 10/13/11 12/29/21 [place] [address] L[place] GARCIA [address] PCP - Assigned PCP 12/05/17 08/23/18 Alfreda Ray PA-C [address] [place] [address] PCP - General Family Medicine 12/30/21 [place] [address] [place]IA [address] Assigned PCP 12/05/17 09/30/19 [place] [address] [place] [address] Assigned PCP 10/01/19 03/02/20 [place] [address] [place] [address] Assigned PCP 03/03/20 05/25/20 [place] [address] [place] [address] Assigned PCP 05/26/20 09/28/20 [place] [address] [place]ARCIA [address] Assigned PCP 09/29/20 07/31/22 Jesú[place] [address] [place] [address] [address] Assigned Musculoskeletal Provider 10/20/20 04/17/22 Alfreda Ray PA-C [address] [place] [address] 287782 Referring Physician Family Medicine 12/31/21 Katrin Orellana PA-C [address] [place] [address] Physician Reading Efficiency Course Director Dermatology 12/31/21 Shanna Vang PA-C [facility] [address] [address] Assigned Cancer Care Provider 01/10/22 Fransisco Eddy MD [address] [place] [address] Assigned Rheumatology Provider 05/09/22 [place] [address] [place] [address] Assigned Pain Medication Provider 06/29/22 09/04/22 [place] [address] [place] [address] Assigned PCP 08/15/22 08/28/22 Katrin Orellana PA-C [address] [place] [address] [facility] [address] [place] [address] Assigned Surgical Provider 08/15/22 02/10/24 Cristina Hsieh [facility] [address] [facility] L[place]BETH HERNANDEZ [address] Pharmacist Pharmacist 09/07/22 Alfreda Ray PA-C [address] [place] [address] Assigned Pain Medication Provider 09/05/22 09/10/23 Alfreda Ray PA-C [address] [place] [address] Assigned PCP 08/29/22 Cristina Hsieh [facility] [address] [place] [address] Assigned MTM Pharmacist 09/26/22 Dakota Tatum MD [address] [place] [address] Cardiovascular Disease 03/25/23 Dakota Tatum MD [address] [place] [address] Assigned Heart and Vascular Provider 05/01/23 [place] [address] CELE GASTELUM, [address] [address] Assigned Musculoskeletal Provider 04/12/24 documented as of this encounter
--- OUTSIDE RECORDS SUMMARY | 2024-07-28 12:43 | XMS_ITS | Encounter Summary ---
Author Organization [place] Address [address] [place] [address] Care Team Providers Care Probation Worker Name Role Phone Esperanza Gatica MD Primary Care Provider + Esperanza Gatica MD Unavailable + Jesús Orourke MD Unavailable Alfreda Ray-C Primary Care Provider + Alfreda RayC Unavailable +[phone] Katrin Orellana PA-C Unavailable +[phone] Shanna Vang PA-C Unavailable +[phone] Fransisco Eddy MD Unavailable +[phone] Esperanza Gatica MD Unavailable + Esperanza Gatica MD Unavailable + Ktarin OrellanaC Unavailable +[phone] Cristina Hsieh [facility] Unavailable +[phone] Alfreda Ray PA-C Unavailable +[phone] Alfreda Ray PA-C Unavailable +[phone] Cristina Hsieh [facility] Unavailable [phone] Dakota Tatum MD Unavailable Dakota Tatum MD Unavailable + [phone] Srinivas Marie DO Unavailable [phone] Reason for Referral * Consultation (Routine: Next available opening) - Closed Specialty Diagnoses / Procedures Referred By Contmarcus t Referred To Contact Rheumatology Diagnoses Rheumatoid factor positive Polyarthralgia Alfreda Ray PA-C [address] [place] [address] Phone: tel: fax: Referral ID Status Reason Start Date Expiration Date Visits Re quested Visits Authorized [id number] Closed 10/07/2021 10/07/2022 1 1 Question Answer Reason for Referral Joint Pain, Other (Use Comments) - POS RA - persistent joint pain Scheduling Instructions: [facility] will call you to coordinate your care as prescribed by your provider. A community health representative will call you within 1 business day to help schedule your appointment, or you may contact the [facility] Pipe Insulator Helper at [phone]. Comments Please be aware that coverage of these services is subject to the terms and limitations of your health insurance plan. Call member services at your health plan with any benefit or coverage questions. [facility] will call you to coordinate your care as prescribed by your provider. A community health representative will call you within 1 business day to help schedule your appointment, or you may contact the [facility] Pipe Insulator Helper at [phone]. Reason for Visit * Reason Onset Date Comments MyChart Communication 10/05/2021 Encounter Details Date Type Department Care Team (Late st Contact Info) Description 10/05/2021 MyC Medical Advice [address] [place] [phone] Alfreda Ray PA-C [address] [place] [address] [phone] MyChart Communication Social History Tobacco Use Types [...] Sex Assigned at Female 08/17/2018 7:56 AM COMMERCIAL INSURANCE UNDERWRITER Legal Sex Female 4:24 AM COMMERCIAL INSURANCE UNDERWRITER Gender Identity Female 08/17/2018 7:56 AM COMMERCIAL INSURANCE UNDERWRITER Sexual Orientation Straight 08/17/2018 7: 56 AM COMMERCIAL INSURANCE UNDERWRITER COVID-19 Exposure Response Date Recorded In the [...] advise Thank you Camila Ackerman RN, BSN [place] Triage documented in this encounter Plan of Treatment Upcoming Encounters Date Type Department Care Team (Late st Contact Info) Description 09/07/2024 10:00 AM CDT Office Visit [facility] [address] [phone] Fransisco Eddy MD [address] [place] [address] 88 [place] [address] 09/18/2024 2:00 PM CDT Virtual Visit [facility]ot[facility] [place] [address] 105 [place] [phone] Shanna Vang PA-C [address] [place] [address] 03/29/2025 3:40 PM CDT Office Visit [address] [phone] Alfreda Ray PA-C [address] [place] [address] Scheduled Referrals Name Type Priority Associated Diagnoses Order Schedule Adult Rheumatology [facility] Referral Referral Routine: Next available opening Rheumatoid [...] documented as of this encounter Care Teams Probation Worker Relationship Specialty Start Date End Date Esperanza Gatica MD PCP - General Family Practice 10/13/11 12/29/21 Alfreda Ray PA-C [address] [place] [address] [phone] PCP - General Family Medicine 12/30/21 [place] [address] [place] [address] Assigned PCP 09/29/20 07/31/22 Jesú[place] [address] [place] [address] Assigned Musculoskeletal Provider 10/20/20 04/17/22 Alfreda Ray PA-C [address] [place] [address] Referring Physician Family Medicine 12/31/21 Katrin Orellana PA-C [address] [place] [address] 967855 Physician Curing Pickling Packer Dermatology 12/31/21 Shanna Vang PA-C [address] [place] [address] [phone] Assigned Cancer Care Provider 01/10/22 Fransisco Eddy MD [address] [place] [address] [phone] Assigned Rheumatology Provider 05/09/22 [place] [address] [place] [address] Assigned Pain Medication Provider 06/29/22 09/04/22 [place] [address] [place] [id number] Assigned PCP 08/15/22 08/28/22 Katrin Orellana PA-C [address] [place] [address] 743615 Assigned Surgical Provider 08/15/22 02/10/24 Cristina Hsieh [facility] [address] [facility] [place]ETH [place]Z [address] Pharmacist Pharmacist 09/07/22 Alfreda Ray PA-C [address] [place] [address] Assigned Pain Medication Provider 09/05/22 09/10/23 Alfreda Ray PA-C [address] [place] [address] 659742 Assigned PCP 08/29/22 Cristina Hsieh [facility] [address] [place] [address] Assigned MTM Pharmacist 09/26/22 Dakota Tatum MD [address] [place] [address] 027155 Cardiovascular Disease 03/25/23 Dakota Tatum MD [address] [place] [address] [phone] Assigned Heart and Vascular Provider 05/01/23 [place] [address] CELE GASTELUM, [address] [address] Assigned Musculoskeletal Provider 04/12/24 documented as of this encounter
--- OUTSIDE RECORDS SUMMARY | 2024-07-28 12:43 | XMS_ITS | Encounter Summary ---
Author Organization [place] Address [address] [place] [address] Care Team Providers Care Protein Specialist Name Role Phone Alfreda Ray PA-C Primary Care Provider + Alfreda Ray PA-C Unavailable +[phone] Katrin Orellana PA-C Unavailable [phone] Shanna Vang PA-C Unavailable +[phone] Fransisco Eddy MD Unavailable [phone] Katrin Orellana PA-C Unavailable +[phone] Cristina Hsieh [facility] Unavailable +[phone] Alfreda Ray PA-C Unavailable + [phone] Alfreda Ray PA-C Unavailable + [phone] Cristina Hsieh [facility] Unavailable [phone] Dakota Tatum MD Unavailable + [phone] Dakota Tatum MD Unavailable + [phone] Srinivas Marie DO Unavailable [phone] Encounter Details Date Type Department Care Team (Late st Contact Info) Description 11/23/2022 [facility] Clinic [address] [address] Fadumo Arboleda, RN Social History [...] Sex Assigned at Female 08/17/2018 7:56 AM MUCK HAULER Legal Sex Female 4:24 AM MUCK HAULER Gender Identity Female 08/17/2018 7:56 AM MUCK HAULER Sexual Orientation Straight 08/17/2018 7: 56 AM MUCK HAULER COVID-19 Exposure Response Date Recorded In the [...] Office Visit [facility] [address] 200 [place] [address] Fransisco Eddy MD [address] [place] [address] 88 [place], [place] 035905 09/18/2024 2:00 PM CDT Virtual Visit [facility] [place] [address] 105 [place] [address] Shanna Vang PARobinson [address] [place] [address] 03/29/2025 3:40 PM CDT Office Visit [address] [place] [phone] Alfreda Ray PA-C [address] [place] [address] 491192 documented as of this encounter Visit Diagnoses Not on filedocumented in this encounter Additional Health Concerns Assessment Noted Time PHQ-9 Depression Total Score: 4 09/05/19 22 10:39 AM CDT documented as of this encounter Care Teams Protein Specialist Relationship Specialty Start Date End Date Alfreda Ray PA-C [address] [place] [address] PCP - General Family Medicine 12/30/21 Alfreda Ray PA-C [address] [place] [address] 094762 Referring Physician Family Medicine 12/31/21 Katrin Orellana PA-C [address] [place] [address] 773675 Physician Security Guard Dispatcher Dermatology 12/31/21 Shanna Vang PA-C [address] [place] [address] 317754 Assigned Cancer Care Provider 01/10/22 Fransisco Eddy MD [address] [place] [address] 852715 Assigned Rheumatology Provider 05/09/22 Katrin Orellana PA-C [address] [place] [address] 853345 Assigned Surgical Provider 08/15/22 02/10/24 Cristina Hsieh [facility] [address] [facility] [place] [address] Pharmacist Pharmacist 09/07/22 Alfreda Ray PA-C [address] [place] [address] Assigned Pain Medication Provider 09/05/22 09/10/23 Alfreda Ray PA-C [address] [place] [address] Assigned PCP 08/29/22 Cristina Hsieh, [facility] [address] [address] Assigned MTM Pharmacist 09/26/22 Dakota Tatum MD [address] [place] [address] Cardiovascular Disease 03/25/23 Dakota Tatum MD [address] [place] [address] Assigned Heart and Vascular Provider 05/01/23 [place] [address] CELE GASTELUM, [address] [address] Assigned Musculoskeletal Provider 04/12/24 documented as of this encounter
--- OUTSIDE RECORDS SUMMARY | 2024-07-28 12:43 | XMS_ITS | Encounter Summary ---
Author Organization [place] Address [address] [place] [address] Care Team Providers Care Traffic Circuit Engineer Name Role Phone Esperanza Gatica MD Primary Care Provider + Esperanza Gatica MD Unavailable + Jesús Orourke MD Unavailable Alfreda Ray-C Primary Care Provider + Alfreda RayC Unavailable +[phone] Katrin Orellana PA-C Unavailable +[phone] Shanna Vang PA-C Unavailable +[phone] Fransisco Eddy MD Unavailable +[phone] Esperanza Gatica MD Unavailable + Esperanza Gatica MD Unavailable + Katrin OrellanaC Unavailable +[phone] Cristina Hsieh [facility] Unavailable +[phone] Alfreda Ray PA-C Unavailable +[phone] Alfreda Ray PA-C Unavailable +2600 Cristina Hsieh [facility] Unavailable +[phone] Dakota Tatum MD Unavailable Dakota Tatum MD Unavailable + [phone] Srinivas Marie Unavailable [phone] Encounter Details Date Type Department Care [...] Sex Assigned at Female 08/17/2018 7:56 AM INSTALLER INSPECTOR FINAL Legal Sex Female 4:24 AM INSTALLER INSPECTOR FINAL Gender Identity Female 08/17/2018 7:56 AM INSTALLER INSPECTOR FINAL Sexual Orientation Straight 08/17/2018 7: 56 AM INSTALLER INSPECTOR FINAL documented as of this encounter Plan of Treatment Upcoming Encounters Date Type Department Care Team (Late st Contact Info) Description 09/07/2024 10:00 AM CDT Office Visit [facility] [address] [phone] Fransisco dEdy MD [address] [place] [address] 88 [place] [address] 09/18/2024 2:00 PM CDT Virtual Visit [facility] [address] [place] [address] 105 [place] [address] Shanna Vang PARobinson [address] [place] [address] 881264 03/29/2025 3:40 PM CDT Office Visit [address] [place] [phone] Alfreda Ray PA-C [address] [place] [address] 029982 documented as of this encounter Visit Diagnoses Not on filedocumented in this encounter Additional Health Concerns Assessment Noted Time PHQ-9 Depression Total Score: 0 08/31/19 21 11:22 AM INSTALLER INSPECTOR FINAL documented as of this encounter Care Teams Traffic Circuit Engineer Relationship Specialty Start Date End Date Esperanza Gatica MD PCP - General Family Practice 10/13/11 12/29/21 Alfreda Ray PA-C [address] [place] [address] 080772 PCP - General Family Medicine 12/30/21 [place] [address] [place] [address] Assigned PCP 09/29/20 07/31/22 Jesú[place] [address] [address] Assigned Musculoskeletal Provider 10/20/20 04/17/22 Alfreda Ray PA-C [address] [place] [address] [phone] Referring Physician Family Medicine 12/31/21 Katrin Orellana PA-C [address] [place] [address] 98 [place], [place] [phone] Physician Supervisor Weaving Dermatology 12/31/21 Shanna Vang PA-C [address] [place] [address] 159664 Assigned Cancer Care Provider 01/10/22 Fransisco Eddy MD [address] [place] [address] Assigned Rheumatology Provider 05/09/22 [place] [address] [place] [address] Assigned Pain Medication Provider 06/29/22 09/04/22 [place] [address] [place] [address] Assigned PCP 08/15/22 08/28/22 Katrin Orellana PA-C [address] [place] [address] Assigned Surgical Provider 08/15/22 02/10/24 Cristina Hsieh [facility] [address] [facility] L[place]BETH [place]NANDEZ [address] Pharmacist Pharmacist 09/07/22 Alfreda Ray PA-C [address] [place] [address] Assigned Pain Medication Provider 09/05/22 09/10/23 Alfreda Ray PA-C [address] [place] [address] 6[address]72 Assigned PCP 08/29/22 Cristina Hsieh [facility] [address] [address] Assigned MTM Pharmacist 09/26/22 Dakota Tatum MD 6 [place] [address] Cardiovascular Disease 03/25/23 Dakota Tatum MD 6 [place], [place] 839655 Assigned Heart and Vascular Provider 05/01/23 [place] [address] CELE GASTELUM, [address] 135617 Assigned Musculoskeletal Provider 04/12/24 documented as of this encounter
--- OUTSIDE RECORDS SUMMARY | 2024-07-28 12:43 | XMS_ITS | Encounter Summary ---
Author Organization [place] Address [address] [place] [address] Care Team Providers Care Pharmacognosy Teacher Name Role Phone Esperanza Gatica MD Primary Care Provider + Esperanza Gatica MD Unavailable +[phone] Esperanza Gatica MD Unavailable +[phone] Esperanza Gatica MD Unavailable +[phone] Esperanza Gatica MD Unavailable +[phone] Esperanza Gatica MD Unavailable +[phone] Esperanza Gatica MD Unavailable +[phone] Jesús Orourke MD Unavailable Alfreda RayC Primary Care Provider + Alfreda Ray PA-C Unavailable + [phone] Katrin Orellana PA-C Unavailable +[phone] Shanna VangC Unavailable +[phone] Fransisco Eddy MD Unavailable +[phone] Esperanza Gatica MD Unavailable +[phone] Esperanza Gatica MD Unavailable +[phone] Katrin Orellana PA-C Unavailable Cristina Hsieh [facility] Unavailable Cory Alfreda Liu PA-C Unavailable +[phone] Ho Raymustapha Liu PA-C Unavailable +[phone] Cristina Hsieh [facility] Unavailable +[phone] Dakota Tatum MD Unavailable +[phone] Dakota Tatum MD Unavailable [phone] Srinivas Marie DO Unavailable [phone] Reason for Visit * Reason Onset Date Comments Refill Request 06/13/2015 Celebrex, Lisino pril Encounter Details Date Type Department Care Team (Late st Contact Info) Description 06/13/2015 MyC Refill [address], [address] [place] [address] [place] [address] [place] [address] Refill Request (Celebrex, Lisinopril) Social [...] Sex Assigned at Female 08/17/2018 7:56 AM FLORAL CLERK Legal Sex Female 4:24 AM FLORAL CLERK Gender Identity Female 08/17/2018 7:56 AM FLORAL CLERK Sexual Orientation Straight 08/17/2018 7: 56 AM FLORAL CLERK documented as of this encounter Miscellaneous Notes * Telephone Encounter - Leigha Rinaldi RN - 06/13/2015 9:16 AM CST Lisinopril, Celebrex Last Written Prescription Date: 03/17/2015 Last Fill Quantity: 90, # refills: 0 Last Office Visit with [facility] primary care provider: 04/08/2015 POTASSIUM Date Value Ref Range Status 07/10/2014 4.3 3.4 - 5.3 mmol/L Final CREATININE Date Value Ref Range Status 07/10/2014 0.89 0.52 - 1.04 mg/dL Final BP Readings from Last 3 Encounters: 04/08/15 112/60 12/06/14 126/64 08/07/14 130/88 Prescription approved per [facility] Refill Protocol. Leigha Rinaldi RN AL CLERK * Telephone Encounter - Leigha Rinaldi RN - 06/13/2015 9:16 AM [facility] Original authorizing provider: MD Alexandria Brannon would like a refill of the following medications: celecoxib (CELEBREX) 200 MG capsule [Esperanza Gatica MD] lisinopril-hydrochlorothiazide (PRINZIDE,ZESTORETIC) 10-12.5 MG per tablet [Esperanza Gatica MD] Preferred pharmacy: [id number] Comment: AL CLERK documented in this encounter Plan of Treatment Upcoming Encounters Date Type Department Care Team (Late st Contact Info) Description 09/07/2024 10:00 AM CDT Office Visit [facility] [address] [phone] Fransisco Eddy MD [address] [place] [address] 530295 09/18/2024 2:00 PM CDT Virtual Visit [facility] [place] [address] 105 [place] [phone] Shanna Vang PA-C [address] [place] [address] 03/29/2025 3:40 PM CDT Office Visit [address] [address] Alfreda Ray PA-C [address] [place] [address] 826572 documented as of this encounter Visit Diagnoses Diagnosis Osteoarthritis Osteoarthrosis, unspecified whether generalized or localized, unspecified site HTN (hypertension), benign Essential hypertension, benign documented in this encounter Additional Health Concerns Infection Onset Date Last Indicated Resolved Time Rule Out COVID-19 05/08/2021 05/08/2021 05/09/2021 9:08 PM FLORAL CLERK documented as of this encounter Care Teams Pharmacognosy Teacher Relationship Specialty Start Date End Date Esperanza Gatica MD PCP - General Family Practice 10/13/11 12/29/21 [place] [address] [place] GARCIA [address] PCP - Assigned PCP 12/05/17 08/23/18 Alfread Ray PA-C [address] [place] [address]707 PCP - General Family Medicine 12/30/21 [place] [address] [place]ARCIA [address] Assigned PCP 12/05/17 09/30/19 [place] [address] [place] [address] Assigned PCP 10/01/19 03/02/20 [place] [address] [place] [address] Assigned PCP 03/03/20 05/25/20 [place] [address] [place] 484[address] Assigned PCP 05/26/20 09/28/20 [place] [address] [place] [address] Assigned PCP 09/29/20 07/31/22 Jesú[place] [address] [facility] [place] [place] [address] Assigned Musculoskeletal Provider 10/20/20 04/17/22 Alfreda Ray PA-C [address] [place] [address] Referring Physician Family Medicine 12/31/21 Katrin Orellana PA-C [address] [place] [address] Physician Supervisor Molding Dermatology 12/31/21 Shanna Vang PA-C [facility] [address] [address] Assigned Cancer Care Provider 01/10/22 Fransisco Eddy MD [address] [place] [address] Assigned Rheumatology Provider 05/09/22 [place] [address] [place] GARCIA [address] Assigned Pain Medication Provider 06/29/22 09/04/22 [place] [address] [place] [address] Assigned PCP 08/15/22 08/28/22 Katrin Orellana PA-C [address] [place] [address] Assigned Surgical Provider 08/15/22 02/10/24 Cristina Hsieh [facility] [address] [place] [address] [place] [address] Pharmacist Pharmacist 09/07/22 Alfreda Ray PA-C [address] [place] [address] 16574 Assigned Pain Medication Provider 09/05/22 09/10/23 Alfreda Ray PA-C [address] [place] [address] 78372 Assigned PCP 08/29/22 Cristina Hsieh [facility] [address] [place] [address] Assigned MTM Pharmacist 09/26/22 Dakota Tatum MD [address] [place] [address] 413325 Cardiovascular Disease 03/25/23 Dakota Tatum MD [address] [place] [address] 368595 Assigned Heart and Vascular Provider 05/01/23 [place] [address] CE[address] GAST[address]UM, [address] [place] [address] Assigned Musculoskeletal Provider 04/12/24 documented as of this encounter
--- OUTSIDE RECORDS SUMMARY | 2024-07-28 12:43 | XMS_ITS | Encounter Summary ---
Author Organization [facility] Address [address] [place] [address]. [place] [address] Care Team Providers Care Proof Technician Name Role Phone Alfreda Ray PA-C Primary Care Provider + Alfreda Ray PA-C Unavailable [phone] Katrin Orellana PA-C Unavailable [phone] Shanna Vang PA-C Unavailable +[phone] Fransisco Eddy MD Unavailable [phone] Katrin Orellana PA-C Unavailable [phone] Cristina Hsieh [facility] Unavailable [phone] Alfreda Ray PA-C Unavailable + [phone] Alfreda Ray PA-C Unavailable + [phone] Cristina Hsieh [facility] Unavailable [phone] Dakota Tatum MD Unavailable + [phone] Dakota Tatum MD Unavailable + [phone] Srinivas Marie DO Unavailable [phone] Encounter Details Date Type Department Care Team (Late st Contact Info) Description 12/01/2022 MyC Medical Advice [facility] [address] [place] [address] Gia Weller Social History Tobacco [...] Sex Assigned at Female 08/17/2018 7:56 AM TAX CONSULTANT Legal Sex Female 4:24 AM TAX CONSULTANT Gender Identity Female 08/17/2018 7:56 AM TAX CONSULTANT Sexual Orientation Straight 08/17/2018 7: 56 AM TAX CONSULTANT COVID-19 Exposure Response Date Recorded In [...] CDT Office Visit [facility] [address] [place] [phone] Fransisco Eddy MD [address] [place] [address] 466855 09/18/2024 2:00 PM CDT Virtual Visit [facility] [address] [place] [address] Shanna Vang, PARobinson [address] [address] 03/29/2025 3:40 PM CDT Office Visit [address] [place] [phone] Alfreda Ray PA-C [address] [place] [address] 768982 documented as of this encounter Visit Diagnoses Not on filedocumented in this encounter Additional Health Concerns Assessment Noted Time PHQ-9 Depression Total Score: 4 09/05/19 22 10:39 AM CDT documented as of this encounter Care Teams Proof Technician Relationship Specialty Start Date End Date Alfreda Ray PA-C [address] [place] [address] PCP - General Family Medicine 12/30/21 Alfreda Ray PA-C [address] [place] [address] 584352 Referring Physician Family Medicine 12/31/21 Katrin Orellana PA-C [address] [place] [address] 978215 Physician Staff Editor Dermatology 12/31/21 Shanna Vang PA-C [address] 627564 Assigned Cancer Care Provider 01/10/22 Fransisco Eddy MD [address] [place] [address] 650455 Assigned Rheumatology Provider 05/09/22 Katrin Orellana PA-C [address] [place] [address] 711075 Assigned Surgical Provider 08/15/22 02/10/24 Cristina Hsieh [facility] [address] [facility] [place] [address] Pharmacist Pharmacist 09/07/22 Alfreda Ray PA-C [address] [place] [address] Assigned Pain Medication Provider 09/05/22 09/10/23 Alfreda Ray PA-C [address] [place] [address]6967 Assigned PCP 08/29/22 Cristina Hsieh, [facility] [address] [place] [address] Assigned MTM Pharmacist 09/26/22 Dakota Tatum MD [address] [place] [address] Cardiovascular Disease 03/25/23 Dakota Tatum MD [address] [place] [address] 46927 Assigned Heart and Vascular Provider 05/01/23 [place] [address] [place] , [address] [address] Assigned Musculoskeletal Provider 04/12/24 documented as of this encounter
--- OUTSIDE RECORDS SUMMARY | 2024-07-28 12:43 | XMS_ITS | Encounter Summary ---
Author Organization [place] Address [address] [place] [address] Care Team Providers Care Gear Straightener Name Role Phone Esperanza Gatica MD Primary Care Provider + Esperanza Gatica MD Unavailable +[phone] Esperanza Gatica MD Unavailable +[phone] Esperanza Gatica MD Unavailable +[phone] Esperanza Gatica MD Unavailable +[phone] Esperanza Gatica MD Unavailable +[phone] Esperanza Gatica MD Unavailable +[phone] Jesús Orourke MD Unavailable Alfreda RayC Primary Care Provider + Alfreda Ray PA-C Unavailable + [phone] Katrin Orellana PA-C Unavailable [phone] Shanna VangC Unavailable +[phone] Fransisco Eddy MD Unavailable [phone] Esperanza Gatica MD Unavailable +[phone] Esperanza Gatica MD Unavailable +[phone] Katrin Orellana PA-C Unavailable Cristina Hsieh [facility] Unavailable Cory Alfreda Liu PA-C Unavailable Ho Raymustapha Liu PA-C Unavailable [phone] Cristina Hsieh [facility] Unavailable Dakota Tatum MD Unavailable Dakota Tatum MD Unavailable [phone] Srinivas Marie DO Unavailable [phone] Reason for Visit * Reason Onset Date Comments Refill Request 07/04/2015 Edilberto Syed Encounter Details Date Type Department Care Team (Late st Contact Info) Description 07/04/2015 Migdalia Alcaraz [address], [address] [place] [address] [place] [address] [place] [address] Refill Request (Edilberto Syed) Social [...] Assigned at Female 08/17/2018 7:56 AM SENIOR RESIDENT CARE DIRECTOR Legal Sex Female 4:24 AM SENIOR RESIDENT CARE DIRECTOR Gender Identity Female 08/17/2018 7:56 AM SENIOR RESIDENT CARE DIRECTOR Sexual Orientation Straight 08/17/2018 7: 56 AM SENIOR RESIDENT CARE DIRECTOR documented as of this encounter Miscellaneous Notes * Telephone Encounter - Leigha Rinaldi RN - 07/04/2015 10:51 AM CST Deannecor Last Written Prescription Date: 01/21/2015 Last Fill Quantity: 90, # refills: 1 Last Office Visit with [facility] primary care provider: 04/08/2015 CHOL 137 07/10/2014 HDL 54 07/10/2014 LDL 62 07/10/2014 TRIG 105 07/10/2014 CHOLHDLRATIO 2.5 07/10/2014 Tenormin Last Written Prescription Date: 01/15/2015 Last Fill Quantity: 90, # refills: 1 Last Office Visit with [facility] primary care provider: 04/08/2015 Future Office Visit: BP Readings from Last 3 Encounters: 04/08/15 112/60 12/06/14 126/64 08/07/14 130/88 Medication is being filled for 1 time refill only due to: Patient needs labs Cholesterol. Leigha Rinaldi RN OR RESIDENT CARE DIRECTOR * Telephone Encounter - Leigha Rinaldi RN - 07/04/2015 10:51 AM [facility]: Original authorizing provider: MD Alexandria Brannon would like a refill of the following medications: atenolol (TENORMIN) 25 MG tablet [Esperanza Gatica MD] simvastatin (ZOCOR) 20 MG tablet [Esperanza Gatica MD] Preferred pharmacy: [facility] #[id number] Comment: I'm not out of Simvastatin, but we are leaving for a couple of weeks on the & I want to besure I have enough to last until we return. OR RESIDENT CARE DIRECTOR documented in this encounter Plan of Treatment Upcoming Encounters Date Type Department Care Team (Late st Contact Info) Description 09/07/2024 10:00 AM CDT Office Visit [facility] [address] [place] [phone] Fransisco Eddy MD [address] [place] [address] 530115 09/18/2024 2:00 PM CDT Virtual Visit [facility] [address] [place] [phone] Shanna Vang, PAFilemonC [address] [place] [address] 03/29/2025 3:40 PM CDT Office Visit [address] [address] Alfreda Ray PA-C [address] [place] [address] documented as of this encounter Visit Diagnoses Diagnosis HTN (hypertension), benign Essential hypertension, benign Hyperlipidemia LDL goal <160 Other and unspecified hyperlipidemia documented in this encounter Additional Health Concerns Infection Onset Date Last Indicated Resolved Time Rule Out COVID-19 05/08/2021 05/08/2021 05/09/2021 9:08 PM SENIOR RESIDENT CARE DIRECTOR documented as of this encounter Care Teams Gear Straightener Relationship Specialty Start Date End Date Esperanza Gatica MD PCP - General Family Practice 10/13/11 12/29/21 [place] [address] [place] GARCIA [address] PCP - Assigned PCP 12/05/17 08/23/18 Alfreda Ray PA-C [address] [place] [address] PCP - General Family Medicine 12/30/21 [place] [address] [place] GARCIA [address] Assigned PCP 12/05/17 09/30/19 [place] [address] [place] GARCIA [address] Assigned PCP 10/01/19 03/02/20 [place] [address] [place] [address] Assigned PCP 03/03/20 05/25/20 [place] [address] [place] [address] Assigned PCP 05/26/20 09/28/20 [place] [address] [place] [address] Assigned PCP 09/29/20 07/31/22 [place] [address] [place] [address] Assigned Musculoskeletal Provider 10/20/20 04/17/22 Alfreda Ray PA-C [address] [place] [address] 189702 Referring Physician Family Medicine 12/31/21 Katrin Orellana PA-C [address] [place] [address] 112715 Physician Outdoor Studies Professor Dermatology 12/31/21 Shanna Vang PA-C [address] [place] [address] 545314 Assigned Cancer Care Provider 01/10/22 Fransisco Eddy MD [address] [place] [address] [phone] Assigned Rheumatology Provider 05/09/22 [place] [address] [place] [address] Assigned Pain Medication Provider 06/29/22 09/04/22 [place] [address] [place] [address] Assigned PCP 08/15/22 08/28/22 Katrin Orellana PA-C [address] [place] [address] 42899 Assigned Surgical Provider 08/15/22 02/10/24 Cristina Hsieh [facility] [address] [place] [address] [place] [address] Pharmacist Pharmacist 09/07/22 Alfreda Ray PA-C [address] [place] [address] Assigned Pain Medication Provider 09/05/22 09/10/23 Alfreda Ray PA-C [address] [place] [address]192 Assigned PCP 08/29/22 Cristina Hsieh [facility] [address] [phone] Assigned MTM Pharmacist 09/26/22 Dakota Tatum MD [address] [place] [address] Cardiovascular Disease 03/25/23 Dakota Tatum MD 6 [place] [address] Assigned Heart and Vascular Provider 05/01/23 [place] [address] CE[address] GASTELUM, [address] [address] Assigned Musculoskeletal Provider 04/12/24 documented as of this encounter
--- OUTSIDE RECORDS SUMMARY | 2024-07-28 12:43 | XMS_ITS | Encounter Summary ---
Author Organization [place] Address [address] [place] [address] Care Team Providers Care Bridge Crew Member Name Role Phone Alfa Marcelo MD Primary Care Provider Ajay Dailey MD Primary Care Provider [phone] Esperanza Gatica MD Primary Care Provider Esperanza Gatica MD Unavailable +[phone] Esperanza Gatica MD Unavailable +[phone] Esperanza Gatica MD Unavailable +[phone] Esperanza Gatica MD Unavailable +[phone] Esperanza Gatica MD Unavailable +[phone] Esperanza Gatica MD Unavailable +[phone] Jesús Orourke MD Unavailable Alfreda RayC Primary Care Provider + Alfreda RayC Unavailable +[phone] Katrin OrellanaC Unavailable Shanna Vnag-C Unavailable +[phone] Fransisco Eddy MD Unavailable +[phone] Esperanza Gatica MD Unavailable +[phone] Esperanza Gatica MD Unavailable +[phone] Katrin OrellanaC Unavailable Cristina Hsieh [facility] Unavailable [phone] Cory Alfreda Liu PA-C Unavailable [phone] Cory Alfreda Liu PA-C Unavailable [phone] Cristina Hsieh [facility] Unavailable [phone] Dakota Tatum MD Unavailable [phone] Dakota Tatum MD Unavailable [phone] Srinivas Marie DO Unavailable [phone] Encounter Details Date Type Department Care Team (Late st Contact Info) Description 01/04/2008 MyC Medical Advice [address] [address] Becky Leo MD [address] [address] Social History Tobacco Use Types Packs/Day Years [...] Office Visit [facility] [address] [address] Frnasisco Eddy MD [address] [place] [address] 09/18/2024 2:00 PM CDT Virtual Visit [facility] [address] [place] [phone] Shanna Vang PARobinson [address] [place] [address] 03/29/2025 3:40 PM CDT Office Visit [address] [phone] Alfreda Ray PA-C [address] [place] [address] [phone] documented as of this encounter Visit Diagnoses Not on filedocumented in this encounter Additional Health Concerns Infection Onset Date Last Indicated Resolved Time Rule Out COVID-19 05/08/2021 05/08/2021 05/09/2021 9:08 PM MILITARY LOGISTICS SPECIALIST documented as of this encounter Care Teams Bridge Crew Member Relationship Specialty Start Date End Date Alfa Marcelo MD [address] [address] PCP - General 01/22/04 01/28/11 Ajay Dailey MD [address] [address] PCP - General Family Practice 01/29/11 10/12/11 Esperanza Gatica MD [address] [address] PCP - General Family Practice 10/13/11 12/29/21 [place] [address] [place] [address] PCP - Assigned PCP 12/05/17 08/23/18 Alfreda Ray PA-C [address] [place] [address], [place] [address] PCP - General Family Medicine 12/30/21 [place] [address] [place] [address] Assigned PCP 12/05/17 09/30/19 [place] [address] [place] [address] Assigned PCP 10/01/19 03/02/20 [place] [address] [place] [address] Assigned PCP 03/03/20 05/25/20 [place] [address] [place] [address] Assigned PCP 05/26/20 09/28/20 [place] [address] [place] [address] Assigned PCP 09/29/20 07/31/22 [place] [address] [place], [place] [address] Assigned Musculoskeletal Provider 10/20/20 04/17/22 Alfreda Ray PA-C [address] [place], [place] 970792 Referring Physician Family Medicine 12/31/21 Katrin Orellana PA-C [address] 827705 Physician Resist Coater Developer Dermatology 12/31/21 Shanna Vang PA-C [address] [address] Assigned Cancer Care Provider 01/10/22 Fransisco Eddy MD [address] [place] [address] 597235 Assigned Rheumatology Provider 05/09/22 [place] [address] [place] [address] Assigned Pain Medication Provider 06/29/22 09/04/22 [place] [address] [place] [address] Assigned PCP 08/15/22 08/28/22 Katrin Orellana PA-C [address] [place] [address] 811845 Assigned Surgical Provider 08/15/22 02/10/24 Cristina Hsieh [facility] [address] [facility] [place] [address] Pharmacist Pharmacist 09/07/22 Alfreda Ray PA-C [address] [place] [address] Assigned Pain Medication Provider 09/05/22 09/10/23 Alfreda Ray PA-C [address] [place] [address] Assigned PCP 08/29/22 Cristina Hsieh, [facility] [address] [address] Assigned MTM Pharmacist 09/26/22 Dakota Tatum MD [address] [place] [address] 644995 Cardiovascular Disease 03/25/23 Dakota Tatum MD [address] [place] [address] 729375 Assigned Heart and Vascular Provider 05/01/23 [place] [address] CE[address] GASTELUM, [address] [address] Assigned Musculoskeletal Provider 04/12/24 documented as of this encounter
--- OUTSIDE RECORDS SUMMARY | 2024-07-28 12:43 | XMS_ITS | Encounter Summary ---
Author Organization [place] Address [address] [place] [address] 69[address] Care Team Providers Care Lease Purchase Truck Driver Name Role Phone Alfa Marcelo MD Primary Care Provider Ajay Daiely MD Primary Care Provider [phone] Esperanza Gatica MD Primary Care Provider Esperanza Gatica MD Unavailable +[phone] Esperanza Gatica MD Unavailable +[phone] Esperanza Gatica MD Unavailable +[phone] Esperanza Gatica MD Unavailable +[phone] Esperanza Gaitca MD Unavailable +[phone] Esperanza Gatica MD Unavailable +[phone] Jesús Orourke MD Unavailable Alfreda RayC Primary Care Provider + Alfreda RayC Unavailable +[phone] Katrin OrellnaaC Unavailable Shanna Vang-C Unavailable +[phone] Fransisco Eddy MD Unavailable +[phone] Esperanza Gatica MD Unavailable +[phone] Esperanza Gatica MD Unavailable +[phone] Katrin Orellana-C Unavailable Cristina Hsieh [facility] Unavailable +[phone] Cory Alfreda Liu PA-C Unavailable +[phone] Cory Alfreda LOERAC Unavailable +[phone] Cristina Hsieh [facility] Unavailable +[phone] Dakota Tatum MD Unavailable +[phone] Dakota Tatum MD Unavailable +[phone] Srinivas Marie DO Unavailable [phone] Reason for Visit * Reason Onset Date Comments MyChart Communication 07/05/2007 blood pres sure Encounter Details Date Type Department Care Team (Latest Contact Info) Description 07/05/2007 MyC Medical Advice [address] [address] [place] [address] MyChart Communication (blood pressure) Social History Tobacco Use Types Packs/Day Years Used Date Smoking Tobacco: Former Cigarettes Q uit: 06/21/1973 Alcohol Use Standard Drinks/Week Comments Yes 0 (1 standard drink = 0.6 oz pur e alcohol) rarely Comments No Sex and Gender Information Value Date Recorded Sex Assigned at Female 08/17/2018 7:56 AM CAREER DEVELOPMENT ENGINEER Legal Sex Female 4:24 AM CAREER DEVELOPMENT ENGINEER Gender Identity Female 08/17/2018 7:56 AM CAREER DEVELOPMENT ENGINEER Sexual Orientation Straight 08/17/2018 7: 56 AM CAREER DEVELOPMENT ENGINEER documented as of this encounter Plan of Treatment Upcoming Encounters Date Type Department Care Team (Late st Contact Info) Description 09/07/2024 10:00 AM CDT Office Visit [address] [place] [phone] Fransisco Eddy MD [address] [facility] 88 [place] [address] 09/18/2024 2:00 PM CDT Virtual Visit [facility] [address] [place] [address] Shanna Vang PA-C [address] [place] [address] 03/29/2025 3:40 PM CDT Office Visit [address] [place] [phone] Alfreda Ray PA-C [address] [place] [address] 208222 documented as of this encounter Visit Diagnoses Not on filedocumented in this encounter Additional Health Concerns Infection Onset Date Last Indicated Resolved Time Rule Out COVID-19 05/08/2021 05/08/2021 05/09/2021 9:08 PM CAREER DEVELOPMENT ENGINEER documented as of this encounter Care Teams Lease Purchase Truck Driver Relationship Specialty Start Date End Date Alfa Marcelo MD [facility] [address] [place] [address] PCP - General 01/22/04 01/28/11 Ajay Dailey MD [facility] [address] [place] [address] PCP - General Family Practice 01/29/11 10/12/11 Esperanza Gatica MD [facility] [address] [place] [address] PCP - General Family Practice 10/13/11 12/29/21 [place] [address] [place] [address] PCP - Assigned PCP 12/05/17 08/23/18 Alfreda Ray PA-C [address] [place] [address] PCP - General Family Medicine 12/30/21 [place] [address] [place] [address] Assigned PCP 12/05/17 09/30/19 [place] [address] [place] [address] Assigned PCP 10/01/19 03/02/20 [place] [address] [place] [address] Assigned PCP 03/03/20 05/25/20 [place] [address] [place] [address] Assigned PCP 05/26/20 09/28/20 [place] [address] [place] [address] Assigned PCP 09/29/20 07/31/22 [place] [address] [address] [place] [address] Assigned Musculoskeletal Provider 10/20/20 04/17/22 Alfreda aRy PA-C [address] [place] [address] [phone] Referring Physician Family Medicine 12/31/21 Katrin Orellana PA-C [address] [place] [address] 947265 Physician Remote Encoding Operations Supervisor Dermatology 12/31/21 Shanna Vang PA-C [address] [place] [address] 893984 Assigned Cancer Care Provider 01/10/22 Fransisco Eddy MD [address] [place] [address] 349275 Assigned Rheumatology Provider 05/09/22 [place] [address] [place] [address] Assigned Pain Medication Provider 06/29/22 09/04/22 [place] [address] [place] [address] Assigned PCP 08/15/22 08/28/22 Katrin Orellana PA-C [address] [place] [address] 802075 Assigned Surgical Provider 08/15/22 02/10/24 Cristina Hsieh [facility] [address] [facility] [place] HERNANEDZ [address] Pharmacist Pharmacist 09/07/22 Alfreda Ray PA-C [address] [place] [address] Assigned Pain Medication Provider 09/05/22 09/10/23 Alfreda Ray PA-C [address] [place] [address] Assigned PCP 08/29/22 Cristina Hsieh, [facility] [address] [place] [address] 116[address] Assigned MTM Pharmacist 09/26/22 Dakota Tatum MD [address] [place] [address]72 Cardiovascular Disease 03/25/23 Dakota Tatum MD [address] [place] [address] Assigned Heart and Vascular Provider 05/01/23 [place] [address] [facility] [address] [address] Assigned Musculoskeletal Provider 04/12/24 documented as of this encounter
--- OUTSIDE RECORDS SUMMARY | 2024-07-28 12:43 | XMS_ITS | Encounter Summary ---
Author Organization [place] Address [address] [place] [address] Care Team Providers Care Electrician Radio Name Role Phone Alfa Marcelo MD Primary Care Provider Ajay [place] MD Primary Care Provider [phone] Esperanza Gatica MD Primary Care Provider Esperanza Gatica MD Unavailable +[phone] Esperanza Gatica MD Unavailable +[phone] Esperanza Gatica MD Unavailable +[phone] Esperanza Gatica MD Unavailable +[phone] Esperanza Gatica MD Unavailable +[phone] Esperanza Gatica MD Unavailable +[phone] Jesús Orourke MD Unavailable Alfreda RayC Primary Care Provider + Alfreda RayC Unavailable +[phone] Katrin OrellanaC Unavailable +[phone] Shanna Vang-C Unavailable +[phone] Fransisco Eddy MD Unavailable +[phone] Esperanza Gatica MD Unavailable +[phone] Esperanza Gatica MD Unavailable +[phone] Katrin Orellana PA-C Unavailable +[phone] Cristina Hsieh [facility] Unavailable +[phone] RayAlfreda olvera PA-C Unavailable +[phone] Cory Alfreda Liu PA-C Unavailable +[phone] Cristina Hsieh [facility] Unavailable +[phone] Dakota Tatum MD Unavailable [phone] Dakota Tatum MD Unavailable +[phone] Srinivas Marie DO Unavailable [phone] Encounter Details Date Type Department Care Team (Late st Contact Info) Description 09/23/[address] [address] Becky Leo MD [address] [address] [facility] Summary Social History Tobacco Use Types Packs/Day [...] Sex Assigned at Female 08/17/2018 7:56 AM THREADER Legal Sex Female 4:24 AM THREADER Gender Identity Female 08/17/2018 7:56 AM THREADER Sexual Orientation Straight 08/17/2018 7: 56 AM THREADER documented as of this encounter Plan of Treatment Upcoming Encounters Date Type Department Care Team (Late st Contact Info) Description 09/07/2024 10:00 AM CDT Office Visit [address] [phone] Fransisco Eddy MD [address] [place] [address] 88 [place] [address] 09/18/2024 2:00 PM CDT Virtual Visit [facility] [address] [place] [phone] Shanna Vang, PAFilemonC [address] [place], [place] [address] 03/29/2025 3:40 PM CDT Office Visit [address] [phone] Alfreda Ray PA-C [address] [place] [address] 624322 documented as of this encounter Visit Diagnoses Diagnosis [facility] Summary- Primary documented in this encounter Additional Health Concerns Infection Onset Date Last Indicated Resolved Time Rule Out COVID-19 05/08/2021 05/08/2021 05/09/2021 9:08 PM THREADER documented as of this encounter Care Teams Electrician Radio Relationship Specialty Start Date End Date Alfa Marcelo MD [facility] [address] [place] [address] PCP - General 01/22/04 01/28/11 Ajay Dailey MD [facility] [address] [place] [address] PCP - General Family Practice 01/29/11 10/12/11 Esperanza Gatica MD [facility] [address] [place] [address] PCP - General Family Practice 10/13/11 12/29/21 [place] [address] [place] [address] PCP - Assigned PCP 12/05/17 08/23/18 Alfreda Ray PA-C [address] [place] [address] PCP - General Family Medicine 12/30/21 [place] [address] [place], [place] [address] Assigned PCP 12/05/17 09/30/19 [place] [address] [place], [place] [address] Assigned PCP 10/01/19 03/02/20 [place] [address] [place], [place] [address] Assigned PCP 03/03/20 05/25/20 [place] [address] [place] [address] Assigned PCP 05/26/20 09/28/20 [place] [address] [place] GARCIA [address] Assigned PCP 09/29/20 07/31/22 [place] [address] [address] [place] [address] Assigned Musculoskeletal Provider 10/20/20 04/17/22 Alfreda Ray PA-C [address] [place] [address] 757012 Referring Physician Family Medicine 12/31/21 Katrin Orellana PA-C [address] [place] [address] Physician Art Supervisor Dermatology 12/31/21 Shanna Vang PA-C [address] [place] [address] 820354 Assigned Cancer Care Provider 01/10/22 Fransisco Eddy MD [address] [place] [address] 062855 Assigned Rheumatology Provider 05/09/22 [place] [address] [place], [place] 1230668 Assigned Pain Medication Provider 06/29/22 09/04/22 [place] [address] [place] [address] Assigned PCP 08/15/22 08/28/22 Katrin Orellana PA-C [address] [place] [address] 106855 Assigned Surgical Provider 08/15/22 02/10/24 Cristina Hsieh [facility] [address] [facility] [place]DE[place] [address] Pharmacist Pharmacist 09/07/22 Alfreda Ray PA-C [address] [place] [address] Assigned Pain Medication Provider 09/05/22 09/10/23 Alfreda Ray PA-C [address] [place] [address]32 Assigned PCP 08/29/22 Cristina Hsieh, [facility] [address] [place] [address] Assigned MTM Pharmacist 09/26/22 Dakota Tatum MD [address] [place] [address] Cardiovascular Disease 03/25/23 Dakota Tatum MD [address] [place] [address] Assigned Heart and Vascular Provider 05/01/23 [place] [address] [address], [address] [address] Assigned Musculoskeletal Provider 04/12/24 documented as of this encounter
--- OUTSIDE RECORDS SUMMARY | 2024-07-28 12:43 | XMS_ITS | Encounter Summary ---
Author Organization [place] Address [address] [place] [address] Care Team Providers Care Bridal Sales Consultant Name Role Phone Alfa Marcelo MD Primary Care Provider Ajay Dailey MD Primary Care Provider [phone] Esperanza Gatica MD Primary Care Provider Esperanza Gatica MD Unavailable +[phone] Esperanza Gatica MD Unavailable +[phone] Esperanza Gatica MD Unavailable +[phone] Esperanza Gatica MD Unavailable +[phone] Esperanza Gatica MD Unavailable +[phone] Esperanza Gatica MD Unavailable +[phone] Jesús Orourke MD Unavailable Alfreda RayC Primary Care Provider + Alfreda RayC Unavailable +[phone] Katrin OrellanaC Unavailable Shanna Vang-C Unavailable +[phone] Fransisco Eddy MD Unavailable +[phone] Esperanza Gatica MD Unavailable +[phone] Esperanza Gatica MD Unavailable +[phone] Katrin OrellanaC Unavailable Cristina Hsieh [facility] Unavailable +[phone] Cory Alfreda Liu PA-C Unavailable +[phone] Cory Alfreda Liu PA-C Unavailable +[phone] Cristina Hsieh [facility] Unavailable +[phone] Dakota Tatum MD Unavailable +[phone] Dakota Tatum MD Unavailable +[phone] Srinvias Marie DO Unavailable [phone] Encounter Details Date Type Department Care Team (Late st Contact Info) Description 11/08/2007 MyC Medical Advice [address] [address] Becky Leo MD [address] [address] Social History Tobacco Use Types Packs/Day Years Used Date Smoking Tobacco: Former Cigarettes Q uit: 06/21/1973 Alcohol Use Standard Drinks/Week Comments Yes 0 (1 standard drink = 0.6 oz pur e alcohol) rarely Comments No Sex and Gender Information Value Date Recorded Sex Assigned at Female 08/17/2018 7:56 AM BOX CAR WASHER Legal Sex Female 4:24 AM BOX CAR WASHER Gender Identity Female 08/17/2018 7:56 AM BOX CAR WASHER Sexual Orientation Straight 08/17/2018 7: 56 AM BOX CAR WASHER documented as of this encounter Plan of Treatment Upcoming Encounters Date Type Department Care Team (Late st Contact Info) Description 09/07/2024 10:00 AM CDT Office Visit [facility] [address] [address] Fransisco Eddy MD [address] [place] [address] 09/18/2024 2:00 PM CDT Virtual Visit [facility] [address] [place] [phone] Shanna Vang PARobinson [address] [place] [address] 03/29/2025 3:40 PM CDT Office Visit [address] [phone] Alfreda Ray PA-C [address] [place] [address] [phone] documented as of this encounter Visit Diagnoses Not on filedocumented in this encounter Additional Health Concerns Infection Onset Date Last Indicated Resolved Time Rule Out COVID-19 05/08/2021 05/08/2021 05/09/2021 9:08 PM BOX CAR WASHER documented as of this encounter Care Teams Bridal Sales Consultant Relationship Specialty Start Date End Date Alfa Marcelo MD [address] [address] PCP - General 01/22/04 01/28/11 Ajay [place] MD [address] [address] PCP - General Family Practice 01/29/11 10/12/11 Esperanza Gatica MD [address] [address] PCP - General Family Practice 10/13/11 12/29/21 [place] [address] [place] [address] PCP - Assigned PCP 12/05/17 08/23/18 Alfreda Ray PA-C [address] [place] [address], [place] [address] PCP - General Family Medicine 12/30/21 [place] [address] [place] [address] Assigned PCP 12/05/17 09/30/19 [place] [address] [place] [address] Assigned PCP 10/01/19 03/02/20 [place] [address] [place] [address] Assigned PCP 03/03/20 05/25/20 [place] [address] [place] [address] Assigned PCP 05/26/20 09/28/20 [place] [address] [place] [address] Assigned PCP 09/29/20 07/31/22 Jesú[place] [address] [place], [place] [address] Assigned Musculoskeletal Provider 10/20/20 04/17/22 Alfreda Ray PA-C 4151 [place], [place] 488352 Referring Physician Family Medicine 12/31/21 Katrin Orellana PA-C [address] 822155 Physician Convenience Store Clerk Dermatology 12/31/21 Shanna Vang PA-C [address] [address] Assigned Cancer Care Provider 01/10/22 Fransisco Eddy MD [address] [place] [address] 188075 Assigned Rheumatology Provider 05/09/22 [place] [address] [place] [address] Assigned Pain Medication Provider 06/29/22 09/04/22 [place] [address] [place] [address] Assigned PCP 08/15/22 08/28/22 Katrin Orellana PA-C [address] [place] [address] 935515 Assigned Surgical Provider 08/15/22 02/10/24 Cristina Hsieh [facility] [address] [facility] [place] [address] Pharmacist Pharmacist 09/07/22 Alfreda Ray PA-C [address] [place] [address] Assigned Pain Medication Provider 09/05/22 09/10/23 Alfreda Ray PA-C [address] [place] [address] Assigned PCP 08/29/22 Cristina Hsieh, [facility] [address] [address] Assigned MTM Pharmacist 09/26/22 Dakota Tatum MD [address] [place] [address] 884375 Cardiovascular Disease 03/25/23 Dakota Tatum MD [address] [place] [address] 902105 Assigned Heart and Vascular Provider 05/01/23 [place] [address] [address] GASTELUM, [address] [address] Assigned Musculoskeletal Provider 04/12/24 documented as of this encounter
--- OUTSIDE RECORDS SUMMARY | 2024-07-28 12:43 | XMS_ITS | Encounter Summary ---
Author Organization [place] Address [address] [place] [address] Care Team Providers Care Loop Cutter Name Role Phone Alfreda Ray PA-C Primary Care Provider + Alfreda Ray PA-C Unavailable [phone] Katrin Orellana PA-C Unavailable [phone] Shanna Vang PA-C Unavailable +[phone] Fransisco Eddy MD Unavailable +[phone] Katrin Orellana PA-C Unavailable [phone] Cristina Hsieh [facility] Unavailable [phone] Alfreda Ray PA-C Unavailable +[phone] Alfreda Ray PA-C Unavailable +[phone] Cristina Hsieh [facility] Unavailable +[phone] Dakota Tatum MD Unavailable + [phone] Dakota Tatum MD Unavailable + [phone] Srinivas Marie DO Unavailable [phone] Reason for Visit * Reason Onset Date Comments Refill Request 04/06/2023 predniSONE (DELT ASONE) 5 MG tablet Encounter Details Date Type Department Care Team (Late st Contact Info) Description 04/06/2023 [facility] Specialty [address] [address] Fransisco Eddy MD [address] [place] [address] [phone] Refill Request (predniSONE (DELTASONE) 5 MG tablet) [...] Assigned at Female 08/17/2018 7:56 AM FORKLIFT TRUCK OPERATOR Legal Sex Female 4:24 AM FORKLIFT TRUCK OPERATOR Gender Identity Female 08/17/2018 7:56 AM FORKLIFT TRUCK OPERATOR Sexual Orientation Straight 08/17/2018 7: 56 AM FORKLIFT TRUCK OPERATOR COVID-19 Exposure Response Date Recorded In [...] Dr Eddy and 03/04/23 with Cristina Hsieh [facility] Pending appointment: Apr 15, 2023 11:30 AM Pharmacist Visit with Cristina Hsieh RPH [facility] [place] ([facility] ) [address] [facility] [phone] Jun 17, 2023 1:30 PM (Arrive by 1:15 PM) Return Visit with Fransisco Eddy MD [facility] Specialty [facility] ([facility] ) [address] [place] [phone] Per YUSRA Evans's last note, pt is [...] Health [facility] [address] [place] [phone] Fransisco Eddy MD [address] [place] [address] 509175 09/18/2024 2:00 PM CDT Virtual Visit [facility] [address] [place] [address] 105 [place] [phone] Shanna Vang, PAFilemonC 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) documented in this encounter Additional Health Concerns Assessment Noted Time PHQ-9 Depression Total Score: 5 03/09/20 23 10:57 AM CDT documented as of this encounter Care Teams Loop Cutter Relationship Specialty Start Date End Date Alfreda Ray PA-C [address] [place] [address] PCP - General Family Medicine 12/30/21 Alfreda Ray PA-C [address] [place] [address] Referring Physician Family Medicine 12/31/21 Katrin Orellana PA-C [address] [place] [address] 500705 Physician Ekg Manager Dermatology 12/31/21 Shanna Vang PA-C [address] 420454 Assigned Cancer Care Provider 01/10/22 Fransisco Eddy MD [address] [place] [address] 896265 Assigned Rheumatology Provider 05/09/22 Katrin Orellana PA-C [address] [place] [address] 489595 Assigned Surgical Provider 08/15/22 02/10/24 Cristina Hsieh [facility] [address] [facility] [place]BETH HERNANDEZ [phone] Pharmacist Pharmacist 09/07/22 Alfreda Ray PA-C [address] [place] [address] Assigned Pain Medication Provider 09/05/22 09/10/23 Alfreda Ray PA-C [address] [place] [address] 414[address] Assigned PCP 08/29/22 Cristina Hsieh, [facility] [address] [address] Assigned MTM Pharmacist 09/26/22 Dakota Tatum MD [address] [place] [address] Cardiovascular Disease 03/25/23 Dakota Tatum MD [address] [place] [address] Assigned Heart and Vascular Provider 05/01/23 [place] [address] [facility], [address] [address] Assigned Musculoskeletal Provider 04/12/24 documented as of this encounter
--- OUTSIDE RECORDS SUMMARY | 2024-07-28 12:43 | XMS_ITS | Encounter Summary ---
Author Organization [facility] Address [address] [place] [address] Care Team Providers Care Meal Attendant Name Role Phone Esperanza Gatica MD Primary Care Provider + Esperanza Gatica MD Unavailable +[phone] Esperanza Gatica MD Unavailable +[phone] Esperanza Gatica MD Unavailable +[phone] Esperanza Gatica MD Unavailable +[phone] Esperanza Gatica MD Unavailable +[phone] Esperanza Gatica MD Unavailable +[phone] Jesús Orourke MD Unavailable Alfreda RayC Primary Care Provider + Alfreda Ray PA-C Unavailable + [phone] Katrin Orellana PA-C Unavailable +[phone] Shanna VangC Unavailable +[phone] Fransisco Eddy MD Unavailable +[phone] Esperanza Gatica MD Unavailable +[phone] Esperanza Gatica MD Unavailable +[phone] Katrin Orellana PA-C Unavailable Cristina Hsieh [facility] Unavailable RayAlfreda PA-C Unavailable +[phone] Cory Alfreda Liu PA-C Unavailable +[phone] Cristina Hsieh [facility] Unavailable +[phone] Dakota Tatum MD Unavailable [phone] Dakota Tatum MD Unavailable [phone] Srinivas Marie DO Unavailable [phone] Reason for Visit * Reason Onset Date Comments Refill Request 03/18/2015 Lisinopril-HCTZ Encounter Details Date Type Department Care Team (Late st Contact Info) Description 03/18/2015 MyC Refill [address], [address] [place] [address] [place] [address] [place] [address] Refill Request (Lisinopril-HCTZ) Social History [...] Sex Assigned at Female 08/17/2018 7:56 AM CONCRETE ROD BUSTER Legal Sex Female 4:24 AM CONCRETE ROD BUSTER Gender Identity Female 08/17/2018 7:56 AM CONCRETE ROD BUSTER Sexual Orientation Straight 08/17/2018 7: 56 AM CONCRETE ROD BUSTER documented as of this encounter Miscellaneous Notes * Telephone Encounter - Leigha Rinaldi RN - 03/18/2015 11:02 AM CDT Lisinopril-HCTZ Last Written Prescription Date: 12/24/2014 Last Fill Quantity: 90, # refills: 0 [address] Visit with [facility] primary care provider: 12/06/2014 Next 5 appointments (look out 90 days) Apr 02, 2015 10:00 AM Pre-Op physical with Esperanza Gatica MD [facility] [address] [facility], [address] [facility] [address] POTASSIUM Date Value Ref Range Status 07/10/2014 4.3 3.4 - 5.3 mmol/L Final CREATININE Date Value Ref Range Status 07/10/2014 0.89 0.52 - 1.04 mg/dL Final BP Readings from Last 3 Encounters: 12/06/14 126/64 08/07/14 130/88 07/10/14 116/[address] [facility] Refill Protocol. Leigha Rinaldi RN * Telephone Encounter - Leigha Rinaldi RN - 03/18/2015 11:01 AM CDTMessage from [facility]: Original authorizing provider: MD Alexandria Brannon would like a refill of the following medications: lisinopril-hydrochlorothiazide (PRINZIDE,ZESTORETIC) 10-12.5 MG per tablet [Esperanza Gatica MD] Preferred pharmacy: [id number] Comment: documented in this encounter Plan of Treatment Upcoming Encounters Date Type Department Care Team (Late st Contact Info) Description 09/07/2024 10:00 AM CDT Office Visit [facility] [address] [phone] Fransisco Eddy MD [address] [place] [address] 88 [place], [place] 210325 09/18/2024 2:00 PM CDT Virtual Visit [facility] [address] [place] [address] 105 [place] [phone] Shanna Vang, PA-C [address] [place] [address] [id number] 03/29/2025 3:40 PM CDT Office Visit [address] [address] Alfreda Ray PA-C [address] [place] [address] documented as of this encounter Visit Diagnoses Diagnosis HTN (hypertension), benign Essential hypertension, benign documented in this encounter Additional Health Concerns Infection Onset Date Last Indicated Resolved Time Rule Out COVID-19 05/08/2021 05/08/2021 05/09/2021 9:08 PM CONCRETE ROD BUSTER documented as of this encounter Care Teams Meal Attendant Relationship Specialty Start Date End Date Esperanza Gatica MD PCP - General Family Practice 10/13/11 12/29/21 [place] [address] [address] GARCIA [address] PCP - Assigned PCP 12/05/17 08/23/18 Alfreda Ray PA-C [address] [place] [address] PCP - General Family Medicine 12/30/21 [place] [address] [address]ARCIA [address] Assigned PCP 12/05/17 09/30/19 [place] [address] [address]ARCIA [address] Assigned PCP 10/01/19 03/02/20 [place] [address] [place] [address] Assigned PCP 03/03/20 05/25/20 [place] [address] [place] [address] Assigned PCP 05/26/20 09/28/20 [place] [address] [place] [address] Assigned PCP 09/29/20 07/31/22 [place] [address] [place] [address] Assigned Musculoskeletal Provider 10/20/20 04/17/22 Alfreda Ray PA-C [address] [place] [address] 797152 Referring Physician Family Medicine 12/31/21 Katrin Orellana PA-C [address] [place] [address] Physician Guest Experience Manager Dermatology 12/31/21 Shanna Vang PA-C [address] [place] [address] 329454 Assigned Cancer Care Provider 01/10/22 Fransisco Eddy MD [address] [place] [address] 820915 Assigned Rheumatology Provider 05/09/22 [place] [address] [place] [address] Assigned Pain Medication Provider 06/29/22 09/04/22 [place] [address] [place] [address] Assigned PCP 08/15/22 08/28/22 Katrin Orellana PA-C [address] [place] [address] 98 [place], [place] 139465 Assigned Surgical Provider 08/15/22 02/10/24 Cristina Hsieh [facility] [address] [facility] L[place]BETH HERNANDEZ [address] Pharmacist Pharmacist 09/07/22 Alfreda Ray PA-C [address] [place] [address] 999242 Assigned Pain Medication Provider 09/05/22 09/10/23 Alfreda Ray PA-C [address] [place] [address] Assigned PCP 08/29/22 Cristina Hsieh [facility] [address] [phone] Assigned MTM Pharmacist 09/26/22 Dakota Tatum MD [address] [place] [address] Cardiovascular Disease 03/25/23 Dakota Tatum MD [address] [place] [address] Assigned Heart and Vascular Provider 05/01/23 [place] [address] [address], [address] [address] Assigned Musculoskeletal Provider 04/12/24 documented as of this encounter
--- OUTSIDE RECORDS SUMMARY | 2024-07-28 12:43 | XMS_ITS | Encounter Summary ---
Author Organization [facility] Address [address] [place] [address]. [place] [address] Care Team Providers Care Apparel Merchandiser Name Role Phone Alfreda Ray PA-C Primary Care Provider + Alfreda Ray PA-C Unavailable [phone] Katrin Orellana PA-C Unavailable [phone] Shanna Vang PA-C Unavailable +[phone] Fransisco Eddy MD Unavailable [phone] Katrin Orellana PA-C Unavailable [phone] Cristina Hsieh [facility] Unavailable [phone] Alfreda Ray PA-C Unavailable + [phone] Alfreda Ray PA-C Unavailable + [phone] Cristina Hsieh [facility] Unavailable [phone] Dakota Tatum MD Unavailable + [phone] Dakota Tatum MD Unavailable + [phone] Srinivas Marie DO Unavailable [phone] Encounter Details Date Type Department Care Team (Late st Contact Info) Description 12/28/2022 MyC Medical Advice [facility] [address] [place] [address] Gia Weller Social History Tobacco [...] Sex Assigned at Female 08/17/2018 7:56 AM RODEO RIDER Legal Sex Female 4:24 AM RODEO RIDER Gender Identity Female 08/17/2018 7:56 AM RODEO RIDER Sexual Orientation Straight 08/17/2018 7: 56 AM RODEO RIDER COVID-19 Exposure Response Date Recorded In the [...] Visit [facility] [address] [place] [phone] Fransisco Eddy MD [address] [place] [address] 245755 09/18/2024 2:00 PM CDT Virtual Visit [facility][note 3][address] [place] [address] Shanna Vang, PARobinson [address] [address] 03/29/2025 3:40 PM CDT Office Visit [address] [place] [phone] Alfreda Ray PA-C [address] [place] [address] 170972 documented as of this encounter Visit Diagnoses Not on filedocumented in this encounter Additional Health Concerns Assessment Noted Time PHQ-9 Depression Total Score: 4 09/05/19 22 10:39 AM CDT documented as of this encounter Care Teams Apparel Merchandiser Relationship Specialty Start Date End Date lAfreda Ray PA-C [address] [place] [address] PCP - General Family Medicine 12/30/21 Alfreda Ray PA-C [address] [place] [address] 118362 Referring Physician Family Medicine 12/31/21 Katrin Orellana PA-C [address] [place] [address] 950035 Physician Insurance Marketing Specialist Dermatology 12/31/21 Shanna Vang PA-C [address] 832434 Assigned Cancer Care Provider 01/10/22 Fransisco Eddy MD [address] [place] [address] 427085 Assigned Rheumatology Provider 05/09/22 Katrin Orellana PA-C [address] [place] [address] 059315 Assigned Surgical Provider 08/15/22 02/10/24 Cristina Hsieh [facility] [address] [facility] [place] [address] Pharmacist Pharmacist 09/07/22 Alfreda Ray PA-C [address] [place] [address] Assigned Pain Medication Provider 09/05/22 09/10/23 Alfreda Ray PA-C [address] [place] [address] Assigned PCP 08/29/22 Cristina Hsieh, [facility] [address] [place] [address] Assigned MTM Pharmacist 09/26/22 aDkota Tatum MD [address] [place] [address] Cardiovascular Disease 03/25/23 Dakota Tatum MD [address] [place] [address] Assigned Heart and Vascular Provider 05/01/23 [place] [address] [place] , [address] [address] Assigned Musculoskeletal Provider 04/12/24 documented as of this encounter
--- OUTSIDE RECORDS SUMMARY | 2024-07-28 12:44 | XMS_ITS | Encounter Summary ---
Author Organization [facility] Address [address] [place] [address] Care Team Providers Care Physician Practice Consultant Name Role Phone Esperanza Gatica MD Primary Care Provider + Esperanza Gatica MD Unavailable +[phone] Esperanza Gatica MD Unavailable +[phone] Esperanza Gatica MD Unavailable +[phone] Esperanza Gatica MD Unavailable +[phone] Esperanza Gatica MD Unavailable +[phone] Esperanza Gatica MD Unavailable +[phone] Jesús Orourke MD Unavailable Alfreda RayC Primary Care Provider + Alfreda Ray PA-C Unavailable + [phone] Katrin Orellana PA-C Unavailable [phone] Shanna VangC Unavailable +[phone] Fransisco Eddy MD Unavailable [phone] Esperanza Gatica MD Unavailable +[phone] Esperanza Gatica MD Unavailable +[phone] Katrin Orellana PA-C Unavailable Cristina Hsieh [facility] Unavailable Cory Alfreda Liu PA-C Unavailable +[phone] Alfreda Ray Alexa KING Unavailable [phone] Cristina Hsieh [facility] Unavailable Dakota Tatum MD Unavailable Dakota Tatum MD Unavailable Srinivas Maire DO Unavailable [phone] Reason for Visit * Reason Onset Date Comments Medication Refill 08/26/2017 lisinopril-hyd rochlorothiazide (PRINZIDE/ZESTORETIC) 10-12.5 MG per tablet Encounter Details Date Type Department Care Team (Late st Contact Info) Description 08/26/[address], [address] [place] [address] [place] [address] [place] [address] Medication Refill (lisinopril-hydrochloro thiazide (PRINZIDE/ZESTORETIC) [...] Sex Assigned at Female 08/17/2018 7:56 AM REMOVABLE PROSTHODONTIST Legal Sex Female 4:24 AM REMOVABLE PROSTHODONTIST Gender Identity Female 08/17/2018 7:56 AM REMOVABLE PROSTHODONTIST Sexual Orientation Straight 08/17/2018 7: 56 AM REMOVABLE PROSTHODONTIST documented as of this encounter Miscellaneous Notes * Telephone Encounter - Leigha Rinaldi RN - 08/26/2017 11:23 AM CST Prescription approved per [facility] Refill Protocol. Leigha Rinaldi RN VABLE PROSTHODONTIST * Telephone Encounter - Diya Stone - [...] No positive test in past 12 months VABLE PROSTHODONTIST documented in this encounter Plan of Treatment Upcoming Encounters Date Type Department Care Team (Late st Contact Info) Description 09/07/2024 10:00 AM CDT Office Visit [address] [address] Fransisco Eddy MD [address] [place] [address] 09/18/2024 2:00 PM CDT Virtual Visit [facility] [address] [facility] [address] [place] [address] Shanna Vang PA-C [address] [place] [address] 03/29/2025 3:40 PM CDT Office Visit [address] [phone] Alfreda Ray PA-C [address] [place] [address] 899892 documented as of this encounter Visit Diagnoses Diagnosis HTN (hypertension), benign Essential hypertension, benign documented in this encounter Additional Health Concerns Infection Onset Date Last Indicated Resolved Time Rule Out COVID-19 05/08/2021 05/08/2021 05/09/2021 9:08 PM REMOVABLE PROSTHODONTIST Assessment Noted Time PHQ-9 Depression Total Score: 0 08/18/19 17 7:09 AM REMOVABLE PROSTHODONTIST documented as of this encounter Care Teams Physician Practice Consultant Relationship Specialty Start Date End Date Esperanza Gatica MD PCP - General Family Practice 10/13/11 12/29/21 [place] [address] [facility] [address] PCP - Assigned PCP 12/05/17 08/23/18 Alfreda Ray PA-C [address] [place] [address] PCP - General Family Medicine 12/30/21 [place] [address] [place] [address] Assigned PCP 12/05/17 09/30/19 [place] [address] [place] [address] Assigned PCP 10/01/19 03/02/20 [place] [address] [place] [address] Assigned PCP 03/03/20 05/25/20 [place] [address] [place] [address] Assigned PCP 05/26/20 09/28/20 [place] [address] [place] [address] Assigned PCP 09/29/20 07/31/22 Jesú[place] [address] [place] [address] Assigned Musculoskeletal Provider 10/20/20 04/17/22 Alfreda Ray PA-C [address] [place] [address] 327752 Referring Physician Family Medicine 12/31/21 Katrin Orellana PA-C [address] [address] Physician As400 Programmer Analyst Dermatology 12/31/21 Shanna Vang PA-C [address] [place] [address] Assigned Cancer Care Provider 01/10/22 Fransisco Eddy MD [address] [place] [address] 88 [place] [address] Assigned Rheumatology Provider 05/09/22 [place] [address] [place] [address] Assigned Pain Medication Provider 06/29/22 09/04/22 [place] [address] [place] [address] Assigned PCP 08/15/22 08/28/22 Katrin Orellana PA-C [address] [place] [place] [address] 98 [place], [place] 677685 Assigned Surgical Provider 08/15/22 02/10/24 Cristina Hsieh [facility] [address] [facility] [place]BETH HERNANDEZ [address] Pharmacist Pharmacist 09/07/22 Alfreda Ray PA-C [address] [place] [address] 674942 Assigned Pain Medication Provider 09/05/22 09/10/23 Alfreda Ray PA-C [address] [place] [address] Assigned PCP 08/29/22 Cristina Hsieh, [facility] [address] [facility] [address] [place] [address] Assigned MTM Pharmacist 09/26/22 Dakota Tatum MD [address] [place] [address] 435165 Cardiovascular Disease 03/25/23 Dakota Tatum MD [address] [place] [address] 575935 Assigned Heart and Vascular Provider 05/01/23 [place] [address] [address], [facility] [address] [place] [address] Assigned Musculoskeletal Provider 04/12/24 documented as of this encounter
--- OUTSIDE RECORDS SUMMARY | 2024-07-28 12:44 | XMS_ITS | Encounter Summary ---
Author Organization [facility] Address [address] [place] [address] Care Team Providers Care Central Office Frame Wirer Name Role Phone Esperanza Gatica MD Primary Care Provider + Esperanza Gatica MD Unavailable +[phone] Esperanza Gatica MD Unavailable +[phone] Esperanza Gatica MD Unavailable +546 Esperanza Gatica MD Unavailable +483 Esperanza Gatica MD Unavailable +[phone] Esperanza Gatica MD Unavailable +[phone] Jesús Orourke MD Unavailable Alfreda RayC Primary Care Provider + Alfreda Ray PA-C Unavailable + [phone] Katrin Orellana PA-C Unavailable +[phone] Shanna VangC Unavailable +[phone] Fransisco Eddy MD Unavailable +[phone] Esperanza Gatica MD Unavailable +[phone] Esperanza Gatica MD Unavailable +[phone] Katrin Orellana PA-C Unavailable Cristina Hsieh [facility] Unavailable Cory Alfreda Liu PA-C Unavailable +[phone] Ho Raymustapha Liu PA-C Unavailable +[phone] Cristina Hsieh [facility] Unavailable +[phone] Dakota Tatum MD Unavailable Dakota Tatum MD Unavailable Srinivas Marie DO Unavailable [phone] Reason for Visit * Reason Onset Date Comments Prior Auth - Medication 10/14/2017 Temazepa m Encounter Details Date Type Department Care Team (Late st Contact Info) Description 10/14/2017 MyC Medical Advice M [address], [facility] [address] [place] [address] [place] [address] [place] [address] Prior Auth - Medication (Temazepam) [...] Sex Assigned at Female 08/17/2018 7:56 AM FITTING ROOM INSPECTOR Legal Sex Female 4:24 AM FITTING ROOM INSPECTOR Gender Identity Female 08/17/2018 7:56 AM FITTING ROOM INSPECTOR Sexual Orientation Straight 08/17/2018 7: 56 AM FITTING ROOM INSPECTOR documented as of this encounter Miscellaneous [...] they need in order to approve the ADAIR Cruz RN, BSN * Telephone Encounter - Leigha Rinaldi RN - 10/15/2017 7:30 AM CDT Prior auth submitted via [employer]. Can call to check the status. Was advised it can take up to 1-3 days. Leigha Rinaldi RN documented in this encounter Plan of Treatment Upcoming Encounters Date Type Department Care Team (Late st Contact Info) Description 09/07/2024 10:00 AM CDT Office Visit [facility] [address] [address] Fransisco Eddy MD [address] [place] [address] 88 [place], [place] 607985 09/18/2024 2:00 PM CDT Virtual Visit [facility] [place] [address] 105 [place] [address] Shanna Vang PA-C [address] [place] [address] 03/29/2025 3:40 PM CDT Office Visit [address] [place] [phone] Alfreda Ray PA-C [address] [place] [address] 562212 documented as of this encounter Visit Diagnoses Not on filedocumented in this encounter Additional Health Concerns Infection Onset Date Last Indicated Resolved Time Rule Out COVID-19 05/08/2021 05/08/2021 05/09/2021 9:08 PM FITTING ROOM INSPECTOR Assessment Noted Time PHQ-9 Depression Total Score: 0 08/18/19 7:09 AM FITTING ROOM INSPECTOR documented as of this encounter Care Teams Central Office Frame Wirer Relationship Specialty Start Date End Date Esperanza Gatica MD PCP - General Family Practice 10/13/11 12/29/21 [place] [address] [address] GARCIA [address] PCP - Assigned PCP 12/05/17 08/23/18 Alfreda Ray PA-C [address] [place] [address] PCP - General Family Medicine 12/30/21 [place] [address] [place] GARCIA [address] Assigned PCP 12/05/17 09/30/19 [place] [address] [address]IA [address] Assigned PCP 10/01/19 03/02/20 [place] [address] [address] [address] Assigned PCP 03/03/20 05/25/20 [place] [address] [address]IA [address] Assigned PCP 05/26/20 09/28/20 [place] [address] [place] [address] Assigned PCP 09/29/20 07/31/22 Jesú[place] [address] [place] [address] [address] Assigned Musculoskeletal Provider 10/20/20 04/17/22 Alfreda Ray PA-C [address] [place] [address] Referring Physician Family Medicine 12/31/21 Katrin Orellana PA-C [address] [place] [address] Physician Saw Superintendent Dermatology 12/31/21 Shanna Vang PA-C [address] [address] Assigned Cancer Care Provider 01/10/22 Fransisco Eddy MD [address] [place] [address] Assigned Rheumatology Provider 05/09/22 [place] [address] [place] [address] Assigned Pain Medication Provider 06/29/22 09/04/22 [place] [address] [place] [address] Assigned PCP 08/15/22 08/28/22 Katrin Orellana PA-C [address] [place] [address] Assigned Surgical Provider 08/15/22 02/10/24 Cristina Hsieh [facility] [address] [facility] LISBETH HERNANDEZ [address] Pharmacist Pharmacist 09/07/22 Alfreda Ray PA-C [address] [place] [address] 407052 Assigned Pain Medication Provider 09/05/22 09/10/23 Alfreda Ray PA-C [address] [place] [address] 809132 Assigned PCP 08/29/22 Cristina Hsieh [facility] [address] [place] [address] Assigned MTM Pharmacist 09/26/22 Dakota Tatum MD [address] [place] [address] Cardiovascular Disease 03/25/23 Dakota Tatum MD [address] [place] [address] Assigned Heart and Vascular Provider 05/01/23 [place] [address] [place] [address] [address] Assigned Musculoskeletal Provider 04/12/24 documented as of this encounter
--- OUTSIDE RECORDS SUMMARY | 2024-07-28 12:44 | XMS_ITS | Continuity of Care Document ---
Author Organization [facility] Address [address] [address] [place] [address] Phone Care Team Providers Care Record Clerk Salesperson Name Role Phone Luis Cardenas MD, Randy Unavailable Unavailabl e Allergies, Adverse Reactions, Alerts Substance Reaction Status Criticality acetaminophen Nausea/Vomiting Active No Informat ion codeine Nausea/Vomiting Active No Informati on Medications Medication Instructions Dosage Effective Dates (start - stop) Status Comments temazepam 7.5 mg capsule take 1 capsule by oral route every day at bedtime as needed 7.5 MG - Active gabapentin 300 mg capsule take 2 capsule by oral route 3 times every day 600 MG - Active duloxetine 20 mg capsule,delayed release take 1 capsule by oral route every day 20 MG - Active tramadol 50 mg tablet take 1 tablet by o ral route every 6 hours as needed 50 MG - Active trazodone 50 mg tablet take 1 tablet by oral route every bedtime 50 MG - Active Vitamin D3 2,000 unit capsule take 1 Tablet by Oral route once 1 Tablet - Active Celebrex 200 mg Cap Take one tablet by mouth daily - Active simvastatin 20 mg Tab Take one tablet by mouth daily - Active atenolol 25 mg Tab every day - Active lisinopril-hydrochlor othiazide 10 mg-12.5 mg Tab Take one tablet by mouth daily - Active Procedures Procedure Date Colonoscopy Flex; W/remov Les- 22 Level Iv-surg Path Gross/micro 22 Colorectal Ca Screen Hi Risk I 16 Colonoscopy Flex; W/remov Les- 10 Level Iv-surg Path Gross/micro 10 Level Iv-surg Path Gross/micro 10 Colonoscopy Flex; W/remov Les- 09 Colonoscopy Flex; W/bx 1/mx Level Iv-surg Path Gross/micro 09 Level Iv-surg Path Gross/micro 09 Advance Directives Directive Yes / No Effective Date File Name No Information Encounters Encounter Description Practice Location Reason(s) For Visit Diagnoses Date Provider Providers Copied on Encounter [facility], [address] [address], [place], [place], [id number], [place] tel:[phone] [facility] No Information 4 Luis Padilla. [address] [facility], [facility] [address], [facility] [place], [place], [address] , [place]. tel:[phone] [facility], [address] [address], [place], [id number], [place] tel:[phone] [facility] GI Symptoms or Concerns (chief complaint) Personal history of colon cancerColorectal polypsDiverticulosi s of colon without diverticulitisEncou nter for screening for malignant neoplasm of colonBenign neoplasm of transverse colon 2 Nadya Taylor . [address] [facility], [address], [facility] [place], [place], [address] , [place]. [phone] Donnie Harper MD. tel:[phone] erring Provider: [place], [address] [place], [address]. tel:[phone] [facility], [address] [address], [facility] [address], [place] tel:[phone] [facility] No Information 1 Shanna Zuñiga. [address] [facility], [address], [facility] [place], [place], [address] , [place]. tel: [phone] [facility], [address] [address], [place], [place], [address], [place] tel:[phone] [facility] Diverticulosis large intestine w/o perforation or abscess w/o bleedingPersonal history of colon cancerExternal hemorrhoidsEncounte r for screening for malignant neoplasm of colonResidual hemorrhoidal skin tagsDvrtclos of lg int w/o perforation or abscess w/o bleedingPersonal history of malignant neoplasm of large intestine Aug-0 7-201 6 Emmanuel Farnsworth. [address] [facility], [address], [facility] [place], [address] , [place]. tel: [phone] Referring Provider: [place], [address] [place], [address]. tel:[phone] [facility], [address] [address], [place], [place], [address], [place] tel:[phone] [facility] Personal History Colon CancerPersonal History Colon CancerBenign Neoplasm Lg Bowel Aug- 9-201 0 Cheikh Pabon. [address] [facility], [facility] [address], [facility] [place], [place], [address] , [place]. tel: [phone] [facility], [address] [address], [place], [place], [address], [place] tel:[phone] [facility] Colon Cancer ScreeningRectal Polyp/BenignCecum Cancer Aug- 8-200 9 Cheikh Pabon. [address] [facility], [address], [place], [place], [address] , [place]. tel: [phone] Referring Provider: Becky Leo MD E, [address] [facility], [place], [address]. tel:[phone] Family History Family Member Type Diagnosis Age At Onset Sister Problem (finding) Alive and well Brother Problem (finding) malignant neoplasm of u rinary bladder Brother Problem (finding) stomach cancer Daughter Problem (finding) Irritable bowel syndrom e Brother Problem (finding) malignant neoplasm of l joao Father Problem (finding) Colon polyps Son Problem (finding) Colon polyps Father Problem (finding) Brother Problem (finding) malignant neoplasm of p ancreas Father Problem (finding) cancer of colon Mother Problem (finding) diverticulitis of colon Brother Problem (finding) Colon polyps Father Problem (finding) malignant neoplasm of l joao Mother Problem (finding) Mother Problem (finding) Colon polyps Mother Problem (finding) Irritable bowel syndrom e Brother Problem (finding) alcoholism Mother Problem (finding) malignant neoplasm of u terus Mother Problem (finding) stomach cancer Father Problem (finding) malignant neoplasm of p ancreas Father Problem (finding) stomach cancer Brother Problem (finding) cancer of colon Father Problem (finding) alcoholism Daughter Problem (finding) Alive and well Father Problem (finding) malignant neoplasm of p harynx Brother Problem (finding) malignant neoplasm of l iver Brother Problem (finding) Alive and well Immunizations Vaccine Date Status Comments SARS-COV-2 (COVID-19) vaccin e, mRNA, spike protein, LNP, preservative free, 30 mcg/0.3mL dose administered Note: [facility] bi-direct ional interface ; Source: Other Registry influenza, high-dose seasona l, quadrivalent, .7mL dose, preservative free administered Note: [facility] bi-direct ional interface ; Source: Other Registry SARS-COV-2 (COVID-19) vaccin e, mRNA, spike protein, LNP, preservative free, 30 mcg/0.3mL dose administered Note: [facility] bi-direct ional interface ; Source: Other Registry SARS-COV-2 (COVID-19) vaccin e, mRNA, spike protein, LNP, preservative free, 30 mcg/0.3mL dose administered Note: [facility] bi-direct ional interface ; Source: Other Registry influenza, high dose seasona l, preservative-free administered Note: [facility] bi-direct ional interface ; Source: Other Registry zoster vaccine recombinant administered N ote: [facility] bi-directional interface ; Source: Other Registry zoster vaccine recombinant administered N ote: [facility] bi-directional interface ; Source: Other Registry influenza, high dose seasona l, preservative-free administered Note: [facility] bi-direct ional interface ; Source: Other Registry influenza, high dose seasona l, preservative-free administered Note: [facility] bi-direct ional interface ; Source: Other Registry influenza, high dose seasona l, preservative-free administered Note: [facility] bi-direct ional interface ; Source: Other Registry zoster vaccine, live administered Note: [facility] bi-directional interface ; Source: Other Registry Prevnar 13 administered Note: [facility] bi-d irectional interface ; Source: Other Registry influenza, high dose seasona l, preservative-free administered Note: [facility] bi-direct ional interface ; Source: Other Registry Afluria Qd 8658-5112 administered Note: [facility] bi-directional interface ; Source: Other Registry influenza, high dose seasona l, preservative-free administered Note: [facility] bi-direct ional interface ; Source: Other Registry Influenza, seasonal, injectable administe red Note: [facility] bi- directional interface ; Source: Other Registry Novel [id number], all formulations administered Note: [facility] bi-direct ional interface ; Source: Other Registry Influenza, seasonal, injecta ble, preservative free administered Note: [facility] bi-direct ional interface ; Source: Other Registry Pneumovax 23 administered Note: [facility] bi-d irectional interface ; Source: Other Registry Influenza, seasonal, injectable administe red Note: [facility] bi- directional interface ; Source: Other Registry Influenza, seasonal, injectable administe red Note: [facility] bi- directional interface ; Source: Other Registry tetanus toxoid, reduced diphtheria toxoid, and acellular pertussis vaccine, adsorbed administered Note: [facility] b i-directional interface ; Source: Other Registry Payers Payer name Insurance type Covered republican ID Authoriza tion(s) Blue Cross Medicare Advantage [id number] Social History Type Description Quantity Date Captured Comments Sex Female Smoking Status No Information Chief Complaint And Reason For Visit No Information Reason For Referral Reason For Referral No Information History Of Present Illness Encounter Date Complaint History Of Prese nt Illness GI Symptoms or Concerns Functional Status Date Functional Assessmen t No Information Instructions Date Instruction Additional Infor mation Diverticulosis/Diverticulitis Re lated to Colorectal polyps Colon Polyps Related to Color ectal polyps High Fiber Diet Related to Color ectal polyps Colon Cancer Prevention Related to Colorectal polyps Hemorrhoids Related to Diver ticulosis large intestine w/o perforation or abscess w/o bleeding High Fiber Diet Related to Diver ticulosis large intestine w/o perforation or abscess w/o bleeding Diverticulosis/Diverticulitis Re lated to Diverticulosis large intestine w/o perforation or abscess w/o bleeding Colon Cancer Prevention Related to Personal history of colon cancer Assessments Type Assessment Date No Information Patient Care Teams Name Effective Dates (start - stop) Status Members No Information
--- OUTSIDE RECORDS SUMMARY | 2024-07-28 12:44 | XMS_ITS | Encounter Summary ---
Author Organization [facility] Address [address] [place] [address] Care Team Providers Care Stage Set Up Worker Name Role Phone Alfa Marcelo MD Primary Care Provider Ajay Dailey MD Primary Care Provider [phone] Esperanza Gatica MD Primary Care Provider Esperanza Gatica MD Unavailable [phone] Esperanza Gatica MD Unavailable [phone] Esperanza Gatica MD Unavailable [phone] Esperanza Gatica MD Unavailable [phone] Esperanza Gatica MD Unavailable [phone] Esperanza Gatica MD Unavailable [phone] Jesús Orourke MD Unavailable Alfreda RayC Primary Care Provider + Alfreda RayC Unavailable [phone] Katrin OrellanaC Unavailable [phone] Shanna Vang-C Unavailable [phone] Fransisco Eddy MD Unavailable [phone] Esperanza Gatica MD Unavailable [phone] Esperanza Gatica MD Unavailable [phone] Katrin Orellana PA-C Unavailable Cristina Hsieh [facility] Unavailable [phone] Alfreda Liu PA-C Unavailable +[phone] Cory Alfreda Liu PA-C Unavailable [phone] Cristina Hsieh [facility] Unavailable [phone] Dakota Tatum MD Unavailable [phone] Dakota Tatum MD Unavailable [phone] Srinivas Marie DO Unavailable [phone] Reason for Visit * Reason Onset Date Comments MyChart Communication 10/02/2009 wanting to see a female multi skilled operator Encounter Details Date Type Department Care Team (Late st Contact Info) Description 10/02/2009 MyC Medical Advice [address] [address] Alfa Marcelo MD [facility] [address] [place] [address] MyChart Communication (wanting to see a fe... Social History Tobacco Use Types Packs/Day Years Used Date Smoking Tobacco: Former Cigarettes Q uit: 06/21/1973 Alcohol Use Standard Drinks/Week Comments Yes 0 (1 standard drink = 0.6 oz pur e alcohol) rarely Comments No Sex and Gender Information Value Date Recorded Sex Assigned at Female 08/17/2018 7:56 AM TENONER OPERATOR Legal Sex Female 4:24 AM TENONER OPERATOR Gender Identity Female 08/17/2018 7:56 AM TENONER OPERATOR Sexual Orientation Straight 08/17/2018 7: 56 AM TENONER OPERATOR documented as of this encounter Plan of Treatment Upcoming Encounters Date Type Department Care Team (Late st Contact Info) Description 09/07/2024 10:00 AM CDT Office Visit [facility] [address] [address] Fransisco Eddy MD [address] [facility] [address] [place], [place] [address] 09/18/2024 2:00 PM CDT Virtual Visit [facility] [address] [place] [phone] Shanna Vang, PAFilemonC [address] [place] [address] 03/29/2025 3:40 PM CDT Office Visit [address] [place] [phone] Alfreda Ray PA-C [address] [place] [id number] documented as of this encounter Visit Diagnoses Not on filedocumented in this encounter Additional Health Concerns Infection Onset Date Last Indicated Resolved Time Rule Out COVID-19 05/08/2021 05/08/2021 05/09/2021 9:08 PM TENONER OPERATOR documented as of this encounter Care Teams Stage Set Up Worker Relationship Specialty Start Date End Date Alfa Marcelo MD [facility] [address] [place] [address] PCP - General 01/22/04 01/28/11 Ajay Dailey MD [facility] [address] [place], [place] [id number] PCP - General Family Practice 01/29/11 10/12/11 Esperanza Gatica MD [facility] [address] [place], [place] [id number] PCP - General Family Practice 10/13/11 12/29/21 [place] [address] [address] LAI, LISBETH [address] PCP - Assigned PCP 12/05/17 08/23/18 Alfreda Ray PA-C [address] [place] [address] PCP - General Family Medicine 12/30/21 [place] [address] LISBETH GARCIA [address] Assigned PCP 12/05/17 09/30/19 [place] [address] ARNAV LAI, LISBETH [address] Assigned PCP 10/01/19 03/02/20 [place] [address] L[place] GARCIA [address] Assigned PCP 03/03/20 05/25/20 [place] [address] L[place] GARCIA [address] Assigned PCP 05/26/20 09/28/20 [place] [address] LISBETH GARCIA [address] Assigned PCP 09/29/20 07/31/22 Jesú[place] [address] [address] [place] GALAN [address] Assigned Musculoskeletal Provider 10/20/20 04/17/22 Alfreda Ray PA-C [address] [place] [address] Referring Physician Family Medicine 12/31/21 Katrin Orellana PA-C [address] [place] [address] Physician Domestic Freight Forwarder Dermatology 12/31/21 Shanna Vang PA-C [address] [place] [address] Assigned Cancer Care Provider 01/10/22 Fransisco Eddy MD [address] [place] [address] Assigned Rheumatology Provider 05/09/22 [place] [address] [place] [id number] Assigned Pain Medication Provider 06/29/22 09/04/22 [place] [address] [address] [facility] [place] [id number] Assigned PCP 08/15/22 08/28/22 Katrin Orellana PA-C [address] [place] [address] Assigned Surgical Provider 08/15/22 02/10/24 Cristina Hsieh [facility] [address] [place] [address] LISBETH HERNANDEZ [address] Pharmacist Pharmacist 09/07/22 Alfreda Ray PA-C [address] [place] [address] Assigned Pain Medication Provider 09/05/22 09/10/23 Alfreda Ray PA-C [address] [place] [address] Assigned PCP 08/29/22 Cristina Hsieh, [facility] [address] [place] [address] Assigned MTM Pharmacist 09/26/22 Dakota Tatum MD [address] [place] [address] Cardiovascular Disease 03/25/23 Dakota Tatum MD [address] [place] [address] Assigned Heart and Vascular Provider 05/01/23 [place] [address] [address], [address] [address] Assigned Musculoskeletal Provider 04/12/24 documented as of this encounter
--- OUTSIDE RECORDS SUMMARY | 2024-07-28 12:44 | XMS_ITS | Encounter Summary ---
Author Organization [facility] Address [address] [place] [address] Care Team Providers Care Clinic Specialist Name Role Phone Alfreda Ray PA-C Primary Care Provider + Alfreda Ray PA-C Unavailable [phone] Katrin Orellana PA-C Unavailable [phone] Shanna Vang PA-C Unavailable [phone] Fransisco Eddy MD Unavailable [phone] Katrin Orellana PA-C Unavailable [phone] Cristina Hsieh [facility] Unavailable [phone] Alfreda Ray PA-C Unavailable + [phone] Alfreda Ray PA-C Unavailable + [phone] Cristina Hsieh [facility] Unavailable [phone] Dakota Tatum MD Unavailable + [phone] Dakota Tatum MD Unavailable [phone] Srinivas Marie DO Unavailable [phone] Encounter Details Date Type Department Care Team (Late st Contact Info) Description 02/12/[address] [facility] [address] [address] Cristina Hsieh, [facility] [address] [facility] [address] [place] [address] Social History Tobacco Use Types Packs/Day Years [...] Assigned at Female 08/17/2018 7:56 AM WARP DRESSER Legal Sex Female 4:24 AM WARP DRESSER Gender Identity Female 08/17/2018 7:56 AM WARP DRESSER Sexual Orientation Straight 08/17/2018 7: 56 AM WARP DRESSER documented as of this encounter Plan of Treatment Upcoming Encounters Date Type Department Care Team (Late st Contact Info) Description 09/07/2024 10:00 AM CDT Office Visit [facility] [address] [phone] Fransisco Eddy MD [address] [place] [address] [address] [place], [place] [address] 09/18/2024 2:00 PM CDT Virtual Visit [facility] [place] [address] [address] [place] [phone] Shanna Vang PAFilemonC [address] [place] [address] 03/29/2025 3:40 PM CDT Office Visit [address] [place] [phone] Alfreda Ray PA-C [address] [place] [id number] documented as of this encounter Visit Diagnoses Not on filedocumented in this encounter Additional Health Concerns Assessment Noted Time PHQ-9 Depression Total Score: 4 09/05/19 22 10:39 AM CDT documented as of this encounter Care Teams Clinic Specialist Relationship Specialty Start Date End Date Alfreda Ray PA-C [address] [place] [address] PCP - General Family Medicine 12/30/21 Alfreda Ray PA-C [address] [place] [address] Referring Physician Family Medicine 12/31/21 Katrin Orellana PA-C [address] [place] [address] Physician Waistband Setter Dermatology 12/31/21 Shanna Vang PA-C [address] [place] [address] 514894 Assigned Cancer Care Provider 01/10/22 Fransisco Eddy MD [address] [place] [address] 042975 Assigned Rheumatology Provider 05/09/22 Katrin Orellana PA-C [address] [place] [address] 807395 Assigned Surgical Provider 08/15/22 02/10/24 Cristina Hsieh [facility] [address] [place] [address] [place] [address] Pharmacist Pharmacist 09/07/22 Alfreda Ray PA-C [address] [place] [address], [place] [address] Assigned Pain Medication Provider 09/05/22 09/10/23 Alfreda Ray PA-C [address] [place] [address] Assigned PCP 08/29/22 Cristina Hsieh, [facility] [address] [place] [address] Assigned MTM Pharmacist 09/26/22 Dakota Tatum MD [address] [place] [address] Cardiovascular Disease 03/25/23 Dakota Tatum MD [address] [place] [address] Assigned Heart and Vascular Provider 05/01/23 [place] [address] CELE GASTELUM, [address] [address] Assigned Musculoskeletal Provider 04/12/24 documented as of this encounter
--- OUTSIDE RECORDS SUMMARY | 2024-07-28 12:44 | XMS_ITS | Encounter Summary ---
Author Organization [place] Address [address] [place] [address] Care Team Providers Care Clinical Safety Manager Name Role Phone Esperanza Gatica MD Primary Care Provider + Esperanza Gatica MD Unavailable + Jesús Orourke MD Unavailable Alfreda Ray-C Primary Care Provider + Alfreda RayC Unavailable +[phone] Katrin Orellana PA-C Unavailable +[phone] Shanna Vang PA-C Unavailable +[phone] Fransisco Eddy MD Unavailable +[phone] Esperanza Gatica MD Unavailable + Esperanza Gatica MD Unavailable + Katrin OrellanaC Unavailable +[phone] Cristina Hsieh [facility] Unavailable +[phone] Alfreda Ray PA-C Unavailable +[phone] Alfreda Ray PA-C Unavailable +[phone] Cristina Hsieh [facility] Unavailable +[phone] Dakota Tatum MD Unavailable Dakota Tatum MD Unavailable + [phone] Srinivas Marie DO Unavailable +[phone] Reason for Visit * Reason Onset Date Comments Refill Request 12/23/2021 Encounter Details Date Type Department Care Team (Late st Contact Info) Description 12/23/2021 MyC Refill [facility] [address] [place] [address] [place] [address] [place] [address] Refill Request Social History Tobacco [...] Assigned at Female 08/17/2018 7:56 AM MOTEL FOOD SERVICE SUPERVISOR Legal Sex Female 4:24 AM MOTEL FOOD SERVICE SUPERVISOR Gender Identity Female 08/17/2018 7:56 AM MOTEL FOOD SERVICE SUPERVISOR Sexual Orientation Straight 08/17/2018 7: 56 AM MOTEL FOOD SERVICE SUPERVISOR COVID-19 Exposure Response Date Recorded In [...] PM) Provider Visit with Alfreda Ray PA-C [facility] (M [address] [address] Mar 05, 2022 2:00 PM (Arrive by 1:40 PM) Annual Wellness Visit with Esperanza Gatica MD [facility] ([facility] ) [address] [place] [phone] Yesi Britton RN documented in this encounter Plan of Treatment Upcoming Encounters Date Type Department Care Team (Late st Contact Info) Description 09/07/2024 10:00 AM CDT Office Visit [facility] [place] [address] [facility] 200 [place] [phone] Fransisco Eddy MD [address] [place] [address] 608905 09/18/2024 2:00 PM CDT Virtual Visit [facility] [address] [place] [address] 105 [place] [address] Shanna Vang, PA-C [address] [place] [address] 03/29/2025 3:40 PM CDT Office Visit [address] [phone] Alfreda Ray PA-C [address] [place] [address] 342882 documented as of this encounter Visit Diagnoses Diagnosis Primary osteoarthritis involving multiple joints documented in this encounter Additional Health Concerns Assessment Noted Time PHQ-9 Depression Total Score: 4 09/05/19 10:39 AM CDT documented as of this encounter Care Teams Clinical Safety Manager Relationship Specialty Start Date End Date Esperanza Gatica MD PCP - General Family Practice 10/13/11 12/29/21 Alfreda Ray PA-C [address] [place] [address] [phone] PCP - General Family Medicine 12/30/21 [place] [address] [place] [address] Assigned PCP 09/29/20 07/31/22 Jesú[place] [address] [facility] [place] [address] Assigned Musculoskeletal Provider 10/20/20 04/17/22 Alfreda Ray PA-C [address] [place] [address] 225972 Referring Physician Family Medicine 12/31/21 Katrin Orellana PA-C [address] [place] [address]21 Physician Behavioral Health Clinician Dermatology 12/31/21 Shanna Vang PA-C [address] [place] [address]10 Assigned Cancer Care Provider 01/10/22 Fransisco Eddy MD [address] [place] [address] 201415 Assigned Rheumatology Provider 05/09/22 [place] [address] [place] [address] Assigned Pain Medication Provider 06/29/22 09/04/22 [place] [address] L[place] GARCIA [address] Assigned PCP 08/15/22 08/28/22 Katrin Orellana PA-C [address] [place] [address] 98 [place], [place] 721295 Assigned Surgical Provider 08/15/22 02/10/24 Cristina Hsieh [facility] [address] [facility] L[place]ETH [place]Z [address] Pharmacist Pharmacist 09/07/22 Alfreda Ray PA-C [address] [place] [address] 353442 Assigned Pain Medication Provider 09/05/22 09/10/23 Alfreda Ray PA-C [address] [place] [address]368 Assigned PCP 08/29/22 Cristina Hsieh [facility] [address] [address] Assigned MTM Pharmacist 09/26/22 Dakota Tatum MD [address] [place] [address]341 Cardiovascular Disease 03/25/23 Dakota Tatum MD 516 [place] [address] Assigned Heart and Vascular Provider 05/01/23 [place] [address] CE[address] GASTELUM, [address] [address] Assigned Musculoskeletal Provider 04/12/24 documented as of this encounter
--- OUTSIDE RECORDS SUMMARY | 2024-07-28 12:44 | XMS_ITS | Encounter Summary ---
Author Organization [place] Address [address] [place] [address] Care Team Providers Care Snowsport Instructor Name Role Phone Alfa Marcelo MD Primary Care Provider Ajay Dailey MD Primary Care Provider [phone] Esperanza Gatica MD Primary Care Provider Esperanza Gatica MD Unavailable +[phone] Esperanza Gatica MD Unavailable +[phone] Esperanza Gatica MD Unavailable +[phone] Esperanza Gatica MD Unavailable +[phone] Esperanza Gatica MD Unavailable +[phone] Esperanza Gatica MD Unavailable +[phone] Jesús Orourke MD Unavailable Alfreda RayC Primary Care Provider + Alfreda RayC Unavailable +[phone] Katrin OrellanaC Unavailable [phone] Shanna Vang-C Unavailable +[phone] Fransisco Eddy MD Unavailable +[phone] Esperanza Gatica MD Unavailable +[phone] Esperanza Gatica MD Unavailable +[phone] Katrin OrellanaC Unavailable Cristina Hsieh [facility] Unavailable +[phone] Cory Alfreda Liu PA-C Unavailable +[phone] Cory Alfreda Liu PA-C Unavailable +[phone] Cristina Hsieh [facility] Unavailable +[phone] Dakota Tatum MD Unavailable +[phone] Dakota Tatum MD Unavailable +[phone] Srinivas Marie DO Unavailable [phone] Encounter Details Date Type Department Care Team (Late st Contact Info) Description 11/03/[address] [address] Becky Leo MD [facility] [address] [address] [facility] Note Social History Tobacco Use Types Packs/Day [...] Sex Assigned at Female 08/17/2018 7:56 AM PIPELINE OPERATOR Legal Sex Female 4:24 AM PIPELINE OPERATOR Gender Identity Female 08/17/2018 7:56 AM PIPELINE OPERATOR Sexual Orientation Straight 08/17/2018 7: 56 AM PIPELINE OPERATOR documented as of this encounter Plan of Treatment Upcoming Encounters Date Type Department Care Team (Late st Contact Info) Description 09/07/2024 10:00 AM CDT Office Visit [address] 200 [place] [phone] Fransisco Eddy MD 515 [facility] 88 [place] [address] 09/18/2024 2:00 PM CDT Virtual Visit [facility] [address] [place] [phone] Shanna Vang PARobinson [address] [place], [place] [address] 03/29/2025 3:40 PM CDT Office Visit [address] [phone] Alfreda Ray PA-C [address] [place] [address] 826602 documented as of this encounter Visit Diagnoses Diagnosis [facility] Note- Primary documented in this encounter Additional Health Concerns Infection Onset Date Last Indicated Resolved Time Rule Out COVID-19 05/08/2021 05/08/2021 05/09/2021 9:08 PM PIPELINE OPERATOR documented as of this encounter Care Teams Snowsport Instructor Relationship Specialty Start Date End Date Alfa Marcelo MD [facility] [address] [place] [place] [address] PCP - General 01/22/04 01/28/11 Ajay Dailey MD [facility] [address] [place] [place], [place] [phone] PCP - General Family Practice 01/29/11 10/12/11 Esperanza Gatica MD [facility] [address] [place] [address] [place], [place] [phone] PCP - General Family Practice 10/13/11 12/29/21 [place] [address] [place] [address] PCP - Assigned PCP 12/05/17 08/23/18 Alfreda Ray PA-C [address] [place] [address] PCP - General Family Medicine 12/30/21 [place] [address] [address] [place], [place]BETH [address] Assigned PCP 12/05/17 09/30/19 [place] [address] [address] [place], LISBETH [address] Assigned PCP 10/01/19 03/02/20 [place] [address] [address] [place], LISBETH [address] Assigned PCP 03/03/20 05/25/20 [place] [address] [place] GARCIA [address] Assigned PCP 05/26/20 09/28/20 [place] [address] [place]ARCIA [address] Assigned PCP 09/29/20 07/31/22 [place] [address] [place] GALAN [address] Assigned Musculoskeletal Provider 10/20/20 04/17/22 Alfreda Ray PA-C [address] [place] [address] 230672 Referring Physician Family Medicine 12/31/21 Katrin Orellana PA-C [address] [place] [address] 816745 Physician Tree Puller Dermatology 12/31/21 Shanna Vang PA-C [address] [place] [address] Assigned Cancer Care Provider 01/10/22 Fransisco Eddy MD [address] [place] [address] 124995 Assigned Rheumatology Provider 05/09/22 [place] [address] [place] [address] Assigned Pain Medication Provider 06/29/22 09/04/22 [place] [address] [place] [address] Assigned PCP 08/15/22 08/28/22 Katrin Orellana PA-C [address] [place] [address] 857325 Assigned Surgical Provider 08/15/22 02/10/24 Cristina Hsieh [facility] [address] [place] [address] [place] [address] Pharmacist Pharmacist 09/07/22 Alfreda Ray PA-C [address] [place] [address] 18771 Assigned Pain Medication Provider 09/05/22 09/10/23 Alfreda Ray PA-C [address] [place] [address] Assigned PCP 08/29/22 Cristina Hsieh, [facility] [address] [place] [address] 287[address] Assigned MTM Pharmacist 09/26/22 Dakota Tatum MD [address] [place] [address] Cardiovascular Disease 03/25/23 Dakota Tatum MD [address] [place] [address] Assigned Heart and Vascular Provider 05/01/23 [place] [address] [place] , [address] [address] Assigned Musculoskeletal Provider 04/12/24 documented as of this encounter
--- OUTSIDE RECORDS SUMMARY | 2024-07-28 12:44 | XMS_ITS | Encounter Summary ---
Author Organization [place] Address [address] [place] [address] Care Team Providers Care Count Room Clerk Name Role Phone Alfa Marcelo MD Primary Care Provider Ajay Dailey MD Primary Care Provider [phone] Esperanza Gatica MD Primary Care Provider Esperanza Gatica MD Unavailable +[phone] Esperanza Gatica MD Unavailable +[phone] Esperanza Gatica MD Unavailable +[phone] Esperanza Gatica MD Unavailable +[phone] Esperanza Gatica MD Unavailable +[phone] Esperanza Gatica MD Unavailable +[phone] Jesús Orourke MD Unavailable Alfreda RayC Primary Care Provider + Alfreda RayC Unavailable +[phone] Katrin OrellanaC Unavailable Shanna Vang-C Unavailable +[phone] Fransisco Eddy MD Unavailable +[phone] Esperanza Gatica MD Unavailable +[phone] Esperanza Gatica MD Unavailable +[phone] Katrin Orellana PA-C Unavailable Cristina Hsieh [facility] Unavailable +[phone] Cory Alfreda Liu PA-C Unavailable +[phone] Cory Alfreda Liu PA-C Unavailable +[phone] Cristina Hsieh [facility] Unavailable +[phone] Dakota Tatum MD Unavailable +[phone] Dakota Tatum MD Unavailable +[phone] Srinivas Marie DO Unavailable [phone] Encounter Details Date Type Department Care Team (Late st Contact Info) Description 10/19/[address] [address] Becky Leo MD [facility] [address] [address] [facility] Summary Social History Tobacco Use Types [...] Sex Assigned at Female 08/17/2018 7:56 AM INTERIOR DESIGN COORDINATOR Legal Sex Female 4:24 AM INTERIOR DESIGN COORDINATOR Gender Identity Female 08/17/2018 7:56 AM INTERIOR DESIGN COORDINATOR Sexual Orientation Straight 08/17/2018 7: 56 AM INTERIOR DESIGN COORDINATOR documented as of this encounter Plan of Treatment Upcoming Encounters Date Type Department Care Team (Late st Contact Info) Description 09/07/2024 10:00 AM CDT Office Visit [address] 200 [place] [phone] Fransisco Eddy MD [address] [place] [address] 88 [place] [address] 09/18/2024 2:00 PM CDT Virtual Visit [facility] [address] [place] [phone] Shanna Vang, PAFilemonC [address] [place], [place] [phone] 03/29/2025 3:40 PM CDT Office Visit [address] [phone] Alfreda Ray PA-C [address] [place] [address] 292352 documented as of this encounter Visit Diagnoses [facility] [place] [facility]- Primary documented in this encounter Additional Health Concerns Infection Onset Date Last Indicated Resolved Time Rule Out COVID-19 05/08/2021 05/08/2021 05/09/2021 9:08 PM INTERIOR DESIGN COORDINATOR documented as of this encounter Care Teams Count Room Clerk Relationship Specialty Start Date End Date Alfa Marcelo MD [facility] [address] [place] [address] PCP - General 01/22/04 01/28/11 Ajay Dailey MD [facility] [address] [place], [place] [phone] PCP - General Family Practice 01/29/11 10/12/11 Esperanza Gatica MD [facility] [address] [place], [place] [phone] PCP - General Family Practice 10/13/11 12/29/21 [place] [address] [place] [address] PCP - Assigned PCP 12/05/17 08/23/18 Alfreda Ray PA-C [address] [place] [address] PCP - General Family Medicine 12/30/21 [place] [address] [address] [place], [place] [address] Assigned PCP 12/05/17 09/30/19 [place] [address] [place] GARCIA [address] Assigned PCP 10/01/19 03/02/20 [place] [address] [address] [place], [place]ETH [address] Assigned PCP 03/03/20 05/25/20 [place] [address] [place] GARCIA [address] Assigned PCP 05/26/20 09/28/20 [place] [address] [place] GARCIA [address] Assigned PCP 09/29/20 07/31/22 [place] [address] [place] GALAN [address] Assigned Musculoskeletal Provider 10/20/20 04/17/22 Alfreda Ray PA-C [address] [place] [address] 688192 Referring Physician Family Medicine 12/31/21 Katrin Orellana PA-C [address] [place] [address] Physician Time Broker Dermatology 12/31/21 Shanna Vang PA-C [address] [place] [address] 112694 Assigned Cancer Care Provider 01/10/22 Fransisco Eddy MD [address] [place] [address] 969515 Assigned Rheumatology Provider 05/09/22 [place] [address] [place] [address] Assigned Pain Medication Provider 06/29/22 09/04/22 [place] [address] [place] [address] Assigned PCP 08/15/22 08/28/22 Katrin Orellana PA-C [address] [place] [address] Assigned Surgical Provider 08/15/22 02/10/24 Cristina Hsieh [facility] [address] [place] [address] Pharmacist Pharmacist 09/07/22 Alfreda Ray PA-C [address] [place] [address] Assigned Pain Medication Provider 09/05/22 09/10/23 Alfreda Ray PA-C [address] [place] [address] Assigned PCP 08/29/22 Cristina Hsieh, [facility] [address] [place] [address] Assigned MTM Pharmacist 09/26/22 Dakota Tatum MD [address] [place] [address] Cardiovascular Disease 03/25/23 Dakota Tatum MD [address] [place] [address] Assigned Heart and Vascular Provider 05/01/23 [place] [address] [facility], [address] [address] Assigned Musculoskeletal Provider 04/12/24 documented as of this encounter
--- OUTSIDE RECORDS SUMMARY | 2024-07-28 12:44 | XMS_ITS | Encounter Summary ---
Author Organization [place] Address [address] [place] [address] Care Team Providers Care Desk Representative Name Role Phone Esperanza Gatica MD Primary Care Provider + Esperanza Gatica MD Unavailable +[phone] Esperanza Gatica MD Unavailable +[phone] Esperanza Gatica MD Unavailable +[phone] Esperanza Gatica MD Unavailable +[phone] Esperanza Gatica MD Unavailable +[phone] Esperanza Gatica MD Unavailable +[phone] Jesús Orourke MD Unavailable Alfreda RayC Primary Care Provider + Alfreda Ray PA-C Unavailable + [phone] Katrin Orellana PA-C Unavailable [phone] Shanna VangC Unavailable +[phone] Fransisco Eddy MD Unavailable +[phone] Esperanza Gatica MD Unavailable +[phone] Esperanza Gatica MD Unavailable +[phone] Katrin Orellana PA-C Unavailable Cristina Hsieh [facility] Unavailable RayAlfreda PA-C Unavailable [phone] Cory Alfreda Liu PA-C Unavailable [phone] Cristina Hsieh [facility] Unavailable Dakota Tatum MD Unavailable Dakota Tatum MD Unavailable Srinivas Marie DO Unavailable [phone] Encounter Details Date Type Department Care Team (Late st Contact Info) Description 08/17/2017 MyC Medical Advice [address], [address] [place] [address] [place] [address] [place] [address] Social History Tobacco Use Types [...] Sex Assigned at Female 08/17/2018 7:56 AM DENTAL TECHNICIAN Legal Sex Female 4:24 AM DENTAL TECHNICIAN Gender Identity Female 08/17/2018 7:56 AM DENTAL TECHNICIAN Sexual Orientation Straight 08/17/2018 7: 56 AM DENTAL TECHNICIAN documented as of this encounter Plan of Treatment Upcoming Encounters Date Type Department Care Team (Late st Contact Info) Description 09/07/2024 10:00 AM CDT Office Visit [facility] [address] [address] Fransisco Eddy MD [address] [place] [address] 09/18/2024 2:00 PM CDT Virtual Visit [facility] [address] [place] [address] Shanna Vang PA-C [address] [place] [address] 03/29/2025 3:40 PM CDT Office Visit [address] [place] [address] Alfreda Ray PA-C [address] [place] [address] 014132 documented as of this encounter Visit Diagnoses Not on filedocumented in this encounter Additional Health Concerns Infection Onset Date Last Indicated Resolved Time Rule Out COVID-19 05/08/2021 05/08/2021 05/09/2021 9:08 PM DENTAL TECHNICIAN Assessment Noted Time PHQ-9 Depression Total Score: 0 08/18/19 17 7:09 AM DENTAL TECHNICIAN documented as of this encounter Care Teams Desk Representative Relationship Specialty Start Date End Date Esperanza Gatica MD PCP - General Family Practice 10/13/11 12/29/21 [place] [address] [place] GARCIA [address] PCP - Assigned PCP 12/05/17 08/23/18 Alfreda Ray PA-C [address] [place] [address] PCP - General Family Medicine 12/30/21 [place] [address] [place] GARCIA [address] Assigned PCP 12/05/17 09/30/19 [place] [address] [address] [place] GAFFNEY [address] Assigned PCP 10/01/19 03/02/20 [place] [address] [place] [address] Assigned PCP 03/03/20 05/25/20 [place] [address] [place] GARCIA [address] Assigned PCP 05/26/20 09/28/20 [place] [address] [place] [address] Assigned PCP 09/29/20 07/31/22 [place] [address] [place], [place] 615757 Assigned Musculoskeletal Provider 10/20/20 04/17/22 Alfreda Ray PA-C [address] [place] [address] 482732 Referring Physician Family Medicine 12/31/21 Katrin Orellana PA-C [address] [place] [address] 916225 Physician Saddle Cutter Dermatology 12/31/21 Shanna Vang PA-C [facility] [address] 401004 Assigned Cancer Care Provider 01/10/22 Fransisco Eddy MD [address] [place] [address] Assigned Rheumatology Provider 05/09/22 [place] [address] [place] [address] Assigned Pain Medication Provider 06/29/22 09/04/22 [place] [address] [place] [address] Assigned PCP 08/15/22 08/28/22 Katrin Orellana PA-C [address] [place] [address] Assigned Surgical Provider 08/15/22 02/10/24 Cristina Hsieh [facility] [address] [place] [address] [place] [address] Pharmacist Pharmacist 09/07/22 Alfreda Ray PA-C [address] [place] [address] Assigned Pain Medication Provider 09/05/22 09/10/23 Alfreda Ray PA-C [address] [place] [address] Assigned PCP 08/29/22 Cristina Hsieh [facility] [address] [id number] Assigned MTM Pharmacist 09/26/22 Dakota Tatum MD [address] [place] [address] 648385 Cardiovascular Disease 03/25/23 Dakota Tatum MD [address] [place] [address] [phone] Assigned Heart and Vascular Provider 05/01/23 [place] [address] CE[address] GASTELUM, [address] [address] Assigned Musculoskeletal Provider 04/12/24 documented as of this encounter
--- OUTSIDE RECORDS SUMMARY | 2024-07-28 12:44 | XMS_ITS | Encounter Summary ---
Author Organization [facility] Address [address] [place] [address]07 Care Team Providers Care Tire Trucker Name Role Phone Alfa Marcelo MD Primary Care Provider Ajay Dailey MD Primary Care Provider [phone] Esperanza Gatica MD Primary Care Provider Esperanza Gatica MD Unavailable +[phone] Esperanza Gatica MD Unavailable +[phone] Esperanza Gatica MD Unavailable +[phone] Esperanza Gatica MD Unavailable +[phone] Esperanza Gatica MD Unavailable +[phone] Esperanza Gatica MD Unavailable +[phone] Jesús Ororuke MD Unavailable Alfreda RayC Primary Care Provider + Alfreda RayC Unavailable +[phone] Katrin OrellanaC Unavailable Shanna Vang-C Unavailable +[phone] Fransisco Eddy MD Unavailable +[phone] Esperanza Gatica MD Unavailable +[phone] Esperanza Gatica MD Unavailable +[phone] Katrin OrellanaC Unavailable Cristina Hsieh [facility] Unavailable +[phone] Cory Alfreda Liu PA-C Unavailable + [phone] Cory Alfreda Liu PA-C Unavailable +[phone] Cristina Hsieh [facility] Unavailable +[phone] Dakota Tatum MD Unavailable + [phone] Dakota Tatum MD Unavailable + [phone] Srinivas Marie DO Unavailable +[phone] Reason for Visit * Reason Onset Date Comments Refill Request 04/08/2009 Atenolol and Howard phong Slk Encounter Details Date Type Department Care Team (Late st Contact Info) Description 04/08/2009 MyC Refill [address] [address] Mary Haas MD Refill Request (Atenolol and Vicodin Slk) Social History Tobacco Use Types Packs/Day Years Used Date Smoking Tobacco: Former Cigarettes Q uit: 06/21/1973 Alcohol Use Standard Drinks/Week Comments Yes 0 (1 standard drink = 0.6 oz pur e alcohol) rarely Comments No Sex and Gender Information Value Date Recorded Sex Assigned at Female 08/17/2018 7:56 AM REPAIR MILLER Legal Sex Female 4:24 AM REPAIR MILLER Gender Identity Female 08/17/2018 7:56 AM REPAIR MILLER Sexual Orientation Straight 08/17/2018 7: 56 AM REPAIR MILLER documented as of this encounter Miscellaneous Notes [...] Rene - 04/08/2009 10:25 AM CDTMessage from [facility]: Alexandria Bradshaw would like a refill of the following medications: ATENOLOL 25 MG OR TABS [CARISSA PAGAN] Preferred pharmacy: [facility] Comment: I have switched Doctors to Mary Haas in [place]. Thank you. documented in this encounter Plan of Treatment Upcoming Encounters Date Type Department Care Team (Late st Contact Info) Description 09/07/2024 10:00 AM CDT Office Visit [facility] [address] [place] [address] Fransisco Eddy MD [address] [place] [address] 09/18/2024 2:00 PM CDT Virtual Visit [facility] [address] [place] [address] Shanna Vang PARobinson [address] [place] [address] 03/29/2025 3:40 PM CDT Office Visit [address] [place] [phone] Alfreda Ray PA-C [address] [place] [address] 393172 documented as of this encounter Visit Diagnoses Diagnosis Tinnitus Unspecified tinnitus Pain in limb documented in this encounter Additional Health Concerns Infection Onset Date Last Indicated Resolved Time Rule Out COVID-19 05/08/2021 05/08/2021 05/09/2021 9:08 PM REPAIR MILLER documented as of this encounter Care Teams Tire Trucker Relationship Specialty Start Date End Date Alfa Marcelo MD [facility] [address] [place] [address] PCP - General 01/22/04 01/28/11 Ajay Dailey MD [facility] [address] [place] [address] PCP - General Family Practice 01/29/11 10/12/11 Esperanza Gatica MD [facility] [address] [place] [address] PCP - General Family Practice 10/13/11 12/29/21 [place] [address] [address]ARCIA [address] PCP - Assigned PCP 12/05/17 08/23/18 Alfreda Ray PA-C [address] [place] [address] PCP - General Family Medicine 12/30/21 [place] [address] [place] [address] Assigned PCP 12/05/17 09/30/19 [place] [address] [place] [address] Assigned PCP 10/01/19 03/02/20 [place] [address] [place] [address] Assigned PCP 03/03/20 05/25/20 [place] [address] [place] [address] Assigned PCP 05/26/20 09/28/20 [place] [address] [place] [address] Assigned PCP 09/29/20 07/31/22 [place] [address] [address] [place]AL[place] [address] Assigned Musculoskeletal Provider 10/20/20 04/17/22 Alfreda Ray PA-C [address] [place] [address] Referring Physician Family Medicine 12/31/21 Katrin Orellana PA-C [address] [place] [address] Physician Chiropractic Doctor Dermatology 12/31/21 Shanna Vang PA-C [address] [place] [address] Assigned Cancer Care Provider 01/10/22 Fransisco Eddy MD [address] [place] [address] Assigned Rheumatology Provider 05/09/22 [place] [address] [place] [address] Assigned Pain Medication Provider 06/29/22 09/04/22 [place] [address] [place] [address] Assigned PCP 08/15/22 08/28/22 Katrin Orellana PA-C [address] [place] [address] Assigned Surgical Provider 08/15/22 02/10/24 Cristina Hsieh [facility] [address] [place] [address] [place] [address] Pharmacist Pharmacist 09/07/22 Alfreda Ray PA-C [address] [place] [address] Assigned Pain Medication Provider 09/05/22 09/10/23 Alfreda Ray PA-C [address] [place] [address] Assigned PCP 08/29/22 Cristina Hsieh, [facility] [address] [place] [address] Assigned MTM Pharmacist 09/26/22 Dakota Tatum MD [address] [place] [address] Cardiovascular Disease 03/25/23 Dakota Tatum MD [address] [place] [address] Assigned Heart and Vascular Provider 05/01/23 [place] [address] [address] Assigned Musculoskeletal Provider 04/12/24 documented as of this encounter
--- OUTSIDE RECORDS SUMMARY | 2024-07-28 12:44 | XMS_ITS | Encounter Summary ---
Author Organization [facility] Address [address] [place] [address] 11862 Care Team Providers Care Fire Prevention Inspector Name Role Phone Esperanza Gatica MD Primary Care Provider + Esperanza Gatica MD Unavailable +[phone] Esperanza Gatica MD Unavailable +[phone] Esperanza Gatica MD Unavailable +[phone] Esperanza Gatica MD Unavailable +[phone] Esperanza Gatica MD Unavailable +[phone] Esperanza Gatica MD Unavailable +[phone] Jesús Orourke MD Unavailable Alfreda RayC Primary Care Provider + Alfreda Ray PA-C Unavailable + [phone] Katrin Orellana PA-C Unavailable +[phone] Shanna VangC Unavailable +[phone] Fransisco Eddy MD Unavailable [phone] Esperanza Gatica MD Unavailable +[phone] Esperanza Gatica MD Unavailable +[phone] Katrin Orellana PA-C Unavailable Cristina Hsieh [facility] Unavailable RayAlfreda PA-C Unavailable [phone] Cory Alfreda Liu PA-C Unavailable [phone] Cristina Hsieh [facility] Unavailable Dakota Tatum MD Unavailable Dakota Tatum MD Unavailable Srinivas Marie DO Unavailable [phone] Encounter Details Date Type Department Care Team (Late st Contact Info) Description 08/17/2017 MyC Medical Advice [address], [address] [place] [address] [place] [address] [place] [address] Social History Tobacco Use Types [...] Sex Assigned at Female 08/17/2018 7:56 AM ACIDITY TESTER Legal Sex Female 4:24 AM ACIDITY TESTER Gender Identity Female 08/17/2018 7:56 AM ACIDITY TESTER Sexual Orientation Straight 08/17/2018 7: 56 AM ACIDITY TESTER documented as of this encounter Plan of Treatment Upcoming Encounters Date Type Department Care Team (Late st Contact Info) Description 09/07/2024 10:00 AM CDT Office Visit [facility] [address] [address] Frnasisco Eddy MD [address] [place] [address] 09/18/2024 2:00 PM CDT Virtual Visit [facility] for [facility] Disorders [address] [place] [address] Shanna Vang PA-C [address] [place] [address] 03/29/2025 3:40 PM CDT Office Visit [address] [place] [address] Alfreda Ray PA-C [address] [place] [address] 640782 documented as of this encounter Visit Diagnoses Not on filedocumented in this encounter Additional Health Concerns Infection Onset Date Last Indicated Resolved Time Rule Out COVID-19 05/08/2021 05/08/2021 05/09/2021 9:08 PM ACIDITY TESTER Assessment Noted Time PHQ-9 Depression Total Score: 0 08/18/19 17 7:09 AM ACIDITY TESTER documented as of this encounter Care Teams Fire Prevention Inspector Relationship Specialty Start Date End Date Esperanza Gatica MD PCP - General Family Practice 10/13/11 12/29/21 [place] [address] [address] GARCIA [address] PCP - Assigned PCP 12/05/17 08/23/18 Alfreda Ray PA-C [address] [place] [address] PCP - General Family Medicine 12/30/21 [place] [address] [address] GARCIA [address] Assigned PCP 12/05/17 09/30/19 [place] [address] [address] [place] GAFFNEY [address] Assigned PCP 10/01/19 03/02/20 [place] [address] [place] [address] Assigned PCP 03/03/20 05/25/20 [place] [address] [address] GARCIA [address] Assigned PCP 05/26/20 09/28/20 [place] [address] [place] [address] Assigned PCP 09/29/20 07/31/22 Jesú[place] [address] [place], [place] [address] Assigned Musculoskeletal Provider 10/20/20 04/17/22 Alfreda Ray PA-C [address] [place] [address] 324302 Referring Physician Family Medicine 12/31/21 Katrin Orellana PA-C [address] [place] [address] 869845 Physician Site Monitor Dermatology 12/31/21 Shanna Vang PA-C [facility] [address] 536[address] Assigned Cancer Care Provider 01/10/22 Fransisco Eddy MD [address] [place] [address] Assigned Rheumatology Provider 05/09/22 [place] [address] [place] [address] Assigned Pain Medication Provider 06/29/22 09/04/22 [place] [address] [place] [address] Assigned PCP 08/15/22 08/28/22 Katrin Orellana PA-C [address] [place] [address] Assigned Surgical Provider 08/15/22 02/10/24 Cristina Hsieh [facility] [address] [place] [address] [place] [address] Pharmacist Pharmacist 09/07/22 Alfreda Ray PA-C [address] [place] [address] Assigned Pain Medication Provider 09/05/22 09/10/23 Alfreda Ray PA-C [address] [place] [address]647 Assigned PCP 08/29/22 Cristina Hsieh [facility] [address] [phone] Assigned MTM Pharmacist 09/26/22 Dakota Tatum MD [address] [place] [address] 240385 Cardiovascular Disease 03/25/23 Daktoa Tatum MD [address] [place] [address] 198215 Assigned Heart and Vascular Provider 05/01/23 [place] [address] [address], [address] [address] Assigned Musculoskeletal Provider 04/12/24 documented as of this encounter
--- OUTSIDE RECORDS SUMMARY | 2024-07-28 12:44 | XMS_ITS | Encounter Summary ---
Author Organization [facility] Address [address] [place] [address] 17943 Care Team Providers Care Stuffer Name Role Phone Esperanza Gatica MD Primary Care Provider + Esperanza Gatica MD Unavailable +[phone] Esperanza Gatica MD Unavailable +[phone] Esperanza Gatica MD Unavailable +[phone] Esperanza Gatica MD Unavailable +[phone] Esperanza Gatica MD Unavailable +[phone] Esperanza Gatica MD Unavailable +[phone] Jesús Orourke MD Unavailable Alfreda RayC Primary Care Provider + Alfreda Ray PA-C Unavailable + [phone] Katrin Orellana PA-C Unavailable +[phone] Shanna VangC Unavailable +[phone] Fransisco Eddy MD Unavailable +[phone] Esperanza Gatica MD Unavailable +[phone] Esperanza Gatica MD Unavailable +[phone] Katrin Orellana PA-C Unavailable [phone] Cristina Hsieh [facility] Unavailable RayAlfreda PA-C Unavailable [phone] Cory Alfreda Liu PA-C Unavailable [phone] Cristina Hsieh [facility] Unavailable Dakota Tatum MD Unavailable Dakota Tatum MD Unavailable Srinivas Marie DO Unavailable Encounter Details Date Type Department Care Team (Late st Contact Info) Description 12/16/2017 MyC Medical Advice [address], [address] [place] [address] [place] [address] [place] [address] Social History Tobacco Use Types [...] Sex Assigned at Female 08/17/2018 7:56 AM CASTING CARRIER Legal Sex Female 4:24 AM CASTING CARRIER Gender Identity Female 08/17/2018 7:56 AM CASTING CARRIER Sexual Orientation Straight 08/17/2018 7: 56 AM CASTING CARRIER documented as of this encounter Plan of Treatment Upcoming Encounters Date Type Department Care Team (Late st Contact Info) Description 09/07/2024 10:00 AM CDT Office Visit [facility] [address] [address] Fransisco Eddy MD [address] [place] [address] 09/18/2024 2:00 PM CDT Virtual Visit [facility] for [facility] Disorders [address] [place] [address] Shanna Vang PA-C [address] [place] [address] 03/29/2025 3:40 PM CDT Office Visit [address] [place] [address] Alfreda Ray PA-C [address] [place] [address] 156742 documented as of this encounter Visit Diagnoses Not on filedocumented in this encounter Additional Health Concerns Infection Onset Date Last Indicated Resolved Time Rule Out COVID-19 05/08/2021 05/08/2021 05/09/2021 9:08 PM CASTING CARRIER Assessment Noted Time PHQ-9 Depression Total Score: 1 12/01/19 18 7:11 AM CDT documented as of this encounter Care Teams Stuffer Relationship Specialty Start Date End Date Esperanza Gatica MD PCP - General Family Practice 10/13/11 12/29/21 [place] [address] [address]ARCIA [address] PCP - Assigned PCP 12/05/17 08/23/18 Alfreda Ray PA-C [address] [place] [address] PCP - General Family Medicine 12/30/21 [place] [address] [address]ARC[address] [address] Assigned PCP 12/05/17 09/30/19 [place] [address] [place] [address] Assigned PCP 10/01/19 03/02/20 [place] [address] [place] [address] Assigned PCP 03/03/20 05/25/20 [place] [address] [address] GARCIA [address] Assigned PCP 05/26/20 09/28/20 [place] [address] [place] [address] Assigned PCP 09/29/20 07/31/22 Jesú[place] [address] [address] [place], [place] 7740[address] Assigned Musculoskeletal Provider 10/20/20 04/17/22 Alfreda Ray PA-C [address] [place] [address] 187162 Referring Physician Family Medicine 12/31/21 Katrin Orellana PA-C [address] [place] [address] 642155 Physician Him Specialist Dermatology 12/31/21 Shanna Vang PA-C [facility] [address] [phone] Assigned Cancer Care Provider 01/10/22 Fransisco Eddy MD [address] [place] [address] Assigned Rheumatology Provider 05/09/22 [place] [address] [place] [address] Assigned Pain Medication Provider 06/29/22 09/04/22 [place] [address] [place] [address] Assigned PCP 08/15/22 08/28/22 Katrin Orellana PA-C [address] [place] [address] Assigned Surgical Provider 08/15/22 02/10/24 Cristina Hsieh [facility] [address] [facility] [place] [place] [address] Pharmacist Pharmacist 09/07/22 Alfreda Ray PA-C [address] [place] [address] Assigned Pain Medication Provider 09/05/22 09/10/23 Alfreda Ray PA-C [address] [place] [address] Assigned PCP 08/29/22 Cristina Hsieh [facility] [address] [phone] Assigned MTM Pharmacist 09/26/22 Dakota Tatum MD [address] [place] [address] 017005 Cardiovascular Disease 03/25/23 Dakota Tatum MD [address] [place] [address] 152025 Assigned Heart and Vascular Provider 05/01/23 [place] [address] [address], [address] [address] Assigned Musculoskeletal Provider 04/12/24 documented as of this encounter
--- OUTSIDE RECORDS SUMMARY | 2024-07-28 12:44 | XMS_ITS | Encounter Summary ---
Author Organization [facility] Address [address] [place] [address] Care Team Providers Care Radiologic Technologist Name Role Phone Esperanza Gatica MD Primary Care Provider + Esperanza Gatica MD Unavailable +[phone] Esperanza Gatica MD Unavailable +[phone] Esperanza Gatica MD Unavailable +772 Esperanza Gatica MD Unavailable +[phone] Esperanza Gatica MD Unavailable +[phone] Esperanza Gatica MD Unavailable +[phone] Jesús Orourke MD Unavailable Alfreda RayC Primary Care Provider + Alfreda Ray PA-C Unavailable + [phone] Katrin Orellana PA-C Unavailable +[phone] Shanna VangC Unavailable +[phone] Fransisco Eddy MD Unavailable [phone] Esperanza Gatica MD Unavailable +[phone] Esperanza Gatica MD Unavailable +[phone] Katrin Orellana PA-C Unavailable Cristina Hsieh [facility] Unavailable Alfreda Ray PA-C Unavailable Cory Alfreda Liu PA-C Unavailable [phone] Cristina Hsieh [facility] Unavailable Dakota Tatum MD Unavailable Dakota Tatum MD Unavailable Srinivas Marie Unavailable [phone] Encounter Details Date Type Department Care Team (Late Contact Info) Description 08/17/2017 MyC Medical Advice [address], [address] [place] [address] Cata Olivo MA Social History [...] Sex Assigned at Female 08/17/2018 7:56 AM PRESIDING JUDGE Legal Sex Female 4:24 AM PRESIDING JUDGE Gender Identity Female 08/17/2018 7:56 AM PRESIDING JUDGE Sexual Orientation Straight 08/17/2018 7: 56 AM PRESIDING JUDGE documented as of this encounter Plan of Treatment Upcoming Encounters Date Type Department Care Team (Late Contact Info) Description 09/07/2024 10:00 AM CDT Office Visit [facility] [address] [place] [address] Fransisco Eddy MD [address] [place] [address] 88 [place] [address] 09/18/2024 2:00 PM CDT Virtual Visit [facility] [address] [place] [phone] Shanna Vang PA-C [address] [place] [address] 03/29/2025 3:40 PM CDT Office Visit [address] [address] Alfreda Ray PA-C [address] [place] [address] 049382 documented as of this encounter Visit Diagnoses Not on filedocumented in this encounter Additional Health Concerns Infection Onset Date Last Indicated Resolved Time Rule Out COVID-19 05/08/2021 05/08/2021 05/09/2021 9:08 PM PRESIDING JUDGE Assessment Noted Time PHQ-9 Depression Total Score: 0 08/18/19 17 7:09 AM PRESIDING JUDGE documented as of this encounter Care Teams Radiologic Technologist Relationship Specialty Start Date End Date Esperanza Gatica MD PCP - General Family Practice 10/13/11 12/29/21 [place] [address] [address] AGRCIA [address] PCP - Assigned PCP 12/05/17 08/23/18 Alfreda Ray PA-C [address] [place] [address] PCP - General Family Medicine 12/30/21 [place] [address] [address] GARCIA [address] Assigned PCP 12/05/17 09/30/19 [place] [address] [address] GARCIA [address] Assigned PCP 10/01/19 03/02/20 [place] [address] [place] [address] Assigned PCP 03/03/20 05/25/20 [place] [address] [place] [address] Assigned PCP 05/26/20 09/28/20 [place] [address] [place] [address] Assigned PCP 09/29/20 07/31/22 [place] [address] [place] [address] [address] Assigned Musculoskeletal Provider 10/20/20 04/17/22 Alfreda Ray PA-C [address] [place] [address] Referring Physician Family Medicine 12/31/21 Katrin Orellana PA-C [address] [place] [address] Physician General Counselor Dermatology 12/31/21 Shanna Vang PA-C [address] [place] [address] Assigned Cancer Care Provider 01/10/22 Fransisco Eddy MD [address] [place] [address] [place] [address] Assigned Rheumatology Provider 05/09/22 [place] [address] [place] [address] Assigned Pain Medication Provider 06/29/22 09/04/22 [place] [address] [place] [address] Assigned PCP 08/15/22 08/28/22 Katrin Orellana PA-C [address] [place] [address]27 Assigned Surgical Provider 08/15/22 02/10/24 Cristina Hsieh [facility] [address] [facility] [address] Pharmacist Pharmacist 09/07/22 Alfreda Ray PA-C [address] [place] [address] 608872 Assigned Pain Medication Provider 09/05/22 09/10/23 Alfreda Ray PA-C [address] [place] [address] Assigned PCP 08/29/22 Cristina Hsieh [facility] [address] [address] Assigned MTM Pharmacist 09/26/22 Dakota Tatum MD [address] [place] [address] Cardiovascular Disease 03/25/23 Dakota Tatum MD [address] [place] [address] Assigned Heart and Vascular Provider 05/01/23 [place] [address] CE[address] GAST[address]UM, [address] [address] Assigned Musculoskeletal Provider 04/12/24 documented as of this encounter
--- OUTSIDE RECORDS SUMMARY | 2024-07-28 12:44 | XMS_ITS | Clinical Summary ---
Author Organization [facility] Address [address], [place] [address] Care Team Providers Care Combination Machine Tender Name Role Phone Esperanza Gatica MD Primary Care Provider [phone] Source Comments You are receiving this document as you are listed as the primary care provider,follow-up provider, or the patient has been referred to you for consultation.This is in compliance with the Medicare and[facility] EHR Incentive Program,which states Providers who transition their patient to another setting of careor provider of care or refers their patient to another provider of care shouldprovide summary care record for each transition of care or referral. [facility] Allergies No known active allergies Medications Medication Sig Dispensed Refills Start Date End Date Status Cholecalciferol 1.25 MG (36347 UT) TABS Take by mouth. Ac tive [...] Comments Blood Pressure 144/67 05/12/2021 3:11 PM CHEESE SPRAYER Pulse 66 05/12/2021 3:11 PM CHEESE SPRAYER Temperature - - Respiratory Rate 11 05/12/2021 3:11 PM CHEESE SPRAYER Oxygen Saturation - - Inhaled Oxygen Concentration [...] age to complete this topic Care Teams Combination Machine Tender Relationship Specialty Start [place] [address] [place] [address] PCP - General Family Practice 01/02/21
--- OUTSIDE RECORDS SUMMARY | 2024-07-28 12:45 | XMS_ITS | Encounter Summary ---
Author Organization [facility] Address [address] [place] [address] Care Team Providers Care Lunchroom Aide Name Role Phone Esperanza Gatica MD Primary Care Provider + Esperanza Gatica MD Unavailable +[phone] Esperanza Gatica MD Unavailable +[phone] Esperanza Gatica MD Unavailable +[phone] Esperanza Gatica MD Unavailable +[phone] Esperanza Gatica MD Unavailable +[phone] Esperanza Gatica MD Unavailable +[phone] Jesús Orourke MD Unavailable Alfreda RayC Primary Care Provider + Alfreda Ray PA-C Unavailable + [phone] Katrin Orellana PA-C Unavailable +[phone] Shanna VangC Unavailable +[phone] Fransisco Eddy MD Unavailable +[phone] Esperanza Gatica MD Unavailable +[phone] Esperanza Gatica MD Unavailable +[phone] Katrin Orellana PA-C Unavailable Cristina Hsieh [facility] Unavailable +[phone] RayAlfreda PA-C Unavailable +[phone] Cory Alfreda Liu PA-C Unavailable +[phone] Cristina Hsieh [facility] Unavailable [phone] Dakota Tatum MD Unavailable [phone] Dakota Tatum MD Unavailable [phone] Srinivas Marie DO Unavailable [phone] Reason for Visit * Reason Onset Date Comments Medication Refill 07/27/2018 gabapentin (NE URONTIN) 100 MG capsule Encounter Details Date Type Department Care Team (Late st Contact Info) Description 07/26/[address], [address] [place] [address] [place] [address] [place] [address] Medication Refill (gabapentin (NEURONTIN) 100 [...] Sex Assigned at Female 08/17/2018 7:56 AM ONLINE PROJECT MANAGER Legal Sex Female 4:24 AM ONLINE PROJECT MANAGER Gender Identity Female 08/17/2018 7:56 AM ONLINE PROJECT MANAGER Sexual Orientation Straight 08/17/2018 7: 56 AM ONLINE PROJECT MANAGER documented as of this encounter Miscellaneous Notes * Telephone Encounter - WhitakerYohan - 07/26/2018 5:59 PM CST gabapentin (NEURONTIN) 100 MG capsule Last Written Prescription Date: 05/05/18 Last Fill Quantity: 180 CAPSULE, # refills: 0 Last Office Visit: 04/04/18 WITH TERA Future Office visit: Next 5 appointments (look out 90 days) Aug 19, 2018 11:00 AM ONLINE PROJECT MANAGER PHYSICAL with Esperanza Gatica MD [facility] ([facility] [address] [place] [address], [address] [facility] [phone] Routing refill request to provider for review/approval because: Drug not on the [facility], [facility] or [facility] refill protocol or controlled substance NE PROJECT MANAGER documented in this encounter Plan of Treatment Upcoming Encounters Date Type Department Care Team (Late st Contact Info) Description 09/07/2024 10:00 AM CDT Office Visit [facility] [address] [place] [phone] Fransisco Eddy MD [address] [place] [address] 818465 09/18/2024 2:00 PM CDT Virtual Visit [facility] [place] [address] 105 [place] [address] Shanna Vang, PARobinson [address] [place] [address] 03/29/2025 3:40 PM CDT Office Visit [address] [place] [phone] Alfreda Ray PA-C [address] [place] [address] 876582 documented as of this encounter Visit Diagnoses Diagnosis Primary osteoarthritis involving multiple joints documented in this encounter Additional Health Concerns Infection Onset Date Last Indicated Resolved Time Rule Out COVID-19 05/08/2021 05/08/2021 05/09/2021 9:08 PM ONLINE PROJECT MANAGER Assessment Noted Time PHQ-9 Depression Total Score: 1 04/05/20 18 7:16 AM CDT documented as of this encounter Care Teams Lunchroom Aide Relationship Specialty Start Date End Date Esperanza Gatica MD PCP - General Family Practice 10/13/11 12/29/21 [place] [address] LISBETH GARCIA [address] PCP - Assigned PCP 12/05/17 08/23/18 Alfreda Ray PA-C [address] [place] [address] PCP - General Family Medicine 12/30/21 [place] [address] [place] GARCIA 10437 Assigned PCP 12/05/17 09/30/19 [place] [address] [place]ARCIA [address] Assigned PCP 10/01/19 03/02/20 [place] [address] [place]IA 55164 Assigned PCP 03/03/20 05/25/20 [place] [address] [place] GARCIA 82561 Assigned PCP 05/26/20 09/28/20 [place] [address] L[place] GARCIA 98542 Assigned PCP 09/29/20 07/31/22 [place] [address] [place] [address] [address] Assigned Musculoskeletal Provider 10/20/20 04/17/22 Alfreda Ray PA-C [address] [place] [address] 473672 Referring Physician Family Medicine 12/31/21 Katrin Orellana PA-C [address] [place] [address] Physician Benefit Specialist Dermatology 12/31/21 Shanna Vang PA-C [address] [place] [address] 149684 Assigned Cancer Care Provider 01/10/22 Fransisco Eddy MD [address] [place] [address] 719455 Assigned Rheumatology Provider 05/09/22 [place] [address] [place] GARCIA 669[address] Assigned Pain Medication Provider 06/29/22 09/04/22 [place] [address] L[place] GARCIA 046[address] Assigned PCP 08/15/22 08/28/22 Katrin Orellana PA-C [address] [place] [address]1782 Assigned Surgical Provider 08/15/22 02/10/24 Cristina Hsieh [facility] [address] [place] [address] LISBETH HERNANDEZ [address] Pharmacist Pharmacist 09/07/22 Alfreda Ray PA-C [address] [place] [address] 21880 Assigned Pain Medication Provider 09/05/22 09/10/23 Alfreda Ray PA-C [address] [place] [address] 48149 Assigned PCP 08/29/22 Cristina Hsieh [facility] [address] [place] [address] Assigned MTM Pharmacist 09/26/22 Dakota Tatum MD [address] [place] [address]29 Cardiovascular Disease 03/25/23 Dakota Tatum MD [address] [place] [address] 67868 Assigned Heart and Vascular Provider 05/01/23 [place] [address] [place] [address] [address] Assigned Musculoskeletal Provider 04/12/24 documented as of this encounter
--- OUTSIDE RECORDS SUMMARY | 2024-07-28 12:45 | XMS_ITS | Encounter Summary ---
Author Organization [facility] Address [address] [place] [address] Care Team Providers Care Clipper Machine Operator Name Role Phone Esperanza Gatica MD Primary Care Provider + Esperanza Gatica MD Unavailable +[phone] Esperanza Gatica MD Unavailable +[phone] Esperanza Gatica MD Unavailable +[phone] Esperanza Gatica MD Unavailable +[phone] Esperanza Gatica MD Unavailable +[phone] Esperanza Gatica MD Unavailable +[phone] Jesús Orourke MD Unavailable Alfreda RayC Primary Care Provider + Alfreda Ray PA-C Unavailable + [phone] Katrin Orellana PA-C Unavailable [phone] Shanna VangC Unavailable +[phone] Fransisco Eddy MD Unavailable [phone] Esperanza Gatica MD Unavailable +[phone] Esperanza Gatica MD Unavailable +[phone] Katrin Orellana PA-C Unavailable Cristina sHieh [facility] Unavailable Cory Alfreda Liu PA-C Unavailable +[phone] Alfreda Ray Alexa KING Unavailable [phone] Cristina Hsieh [facility] Unavailable Dakota Tatum MD Unavailable Dakota Tatum MD Unavailable Srinivas Marie DO Unavailable [phone] Reason for Visit * Reason Onset Date Comments Medication Refill 08/12/2017 traZODone and temazepam Encounter Details Date Type Department Care Team (Late st Contact Info) Description 08/12/[address], [address] [place] [address] [place] [address] [place] [address] Medication Refill (traZODone and temazepam [...] Sex Assigned at Female 08/17/2018 7:56 AM RETURN CHECKER Legal Sex Female 4:24 AM RETURN CHECKER Gender Identity Female 08/17/2018 7:56 AM RETURN CHECKER Sexual Orientation Straight 08/17/2018 7: 56 AM RETURN CHECKER documented as of this encounter Miscellaneous Notes * Telephone Encounter - Jacqui Whiteside CMA - 08/13/2017 4:22 PM RETURN CHECKER Faxed temazepam to [facility] pharmacy at [phone]. Jacqui Whiteside CMA RN CHECKER * Telephone Encounter - Leigha Rinaldi RN - 08/13/2017 3:20 PM CST .Routing refill request to provider for review/approval because: Drug not on the [facility] refill protocol : TEMAZEPAM Leigha Rinaldi RN RN CHECKER * Telephone Encounter - Diya Stone - 08/12/2017 2:22 PM CST traZODone (DESYREL) 50 MG tablet Sig: Take 1 capsule (7.5 mg) by mouth nightly as needed for sleep Last Written Prescription Date: 04/22/17 Last Fill Quantity: 30, # refills: 3 Last Office Visit with [facility] or [facility] prescribing provider: 07/02/2017 Routing refill request to provider for review/approval because: Drug not on the [facility], [facility] or [facility] refill protocol or controlled substance Requested [...] No positive test in past 12 months RN CHECKER documented in this encounter Plan of Treatment Upcoming Encounters Date Type Department Care Team (Late st Contact Info) Description 09/07/2024 10:00 AM CDT Office Visit [facility] [place] [address] [facility] 200 [place] [phone] Fransisco Eddy MD [address] [facility] 88 [place] [address] 09/18/2024 2:00 PM CDT Virtual Visit [facility] [address] [facility] [address] [place] [phone] Shanna Vang PARobinson [address] [facility] [place] [address] 03/29/2025 3:40 PM CDT Office Visit [address] [place] [address] Alfreda Ray PA-C [address] [place] [address] 072122 documented as of this encounter Visit Diagnoses Diagnosis Insomnia, unspecified type documented in this encounter Additional Health Concerns Infection Onset Date Last Indicated Resolved Time Rule Out COVID-19 05/08/2021 05/08/2021 05/09/2021 9:08 PM RETURN CHECKER Assessment Noted Time PHQ-9 Depression Total Score: 0 08/18/19 17 7:09 AM RETURN CHECKER documented as of this encounter Care Teams Clipper Machine Operator Relationship Specialty Start Date End Date Esperanza Gatica MD PCP - General Family Practice 10/13/11 12/29/21 [place] [address] [place] [address] PCP - Assigned PCP 12/05/17 08/23/18 Alfreda Ray PA-C [address] [place] [address] PCP - General Family Medicine 12/30/21 [place] [address] [place] [address] Assigned PCP 12/05/17 09/30/19 [place] [address] [place] [address] Assigned PCP 10/01/19 03/02/20 [place] [address] [place] [address] Assigned PCP 03/03/20 05/25/20 [place] [address] [place] [address] Assigned PCP 05/26/20 09/28/20 [place] [address] [place] [address] Assigned PCP 09/29/20 07/31/22 Jesú[place] [address] [place] G[place]AN [address] Assigned Musculoskeletal Provider 10/20/20 04/17/22 Alfreda Ray PA-C [address] [place] [address] Referring Physician Family Medicine 12/31/21 Katrin Orellana PA-C [address] [place] [address] Physician Tray Line Worker Dermatology 12/31/21 Shanna Vang PA-C [address] [place] [address]87 Assigned Cancer Care Provider 01/10/22 Fransisco Eddy MD [address] [place] [address] 057755 Assigned Rheumatology Provider 05/09/22 [place] [address] [place] [address] Assigned Pain Medication Provider 06/29/22 09/04/22 [place] [address] [place] [address] Assigned PCP 08/15/22 08/28/22 Katrin Orellana PA-C [address] [place] [address] 25047 Assigned Surgical Provider 08/15/22 02/10/24 Cristina Hsieh [facility] [address] [address] [place] [address] Pharmacist Pharmacist 09/07/22 Alfreda Ray PA-C [address] [place] [address] 97185 Assigned Pain Medication Provider 09/05/22 09/10/23 Alfreda Ray PA-C [address] [place] [address]68 Assigned PCP 08/29/22 Cristina Hsieh, [facility] [address] [place] [address] Assigned MTM Pharmacist 09/26/22 Dakota Tatum MD [address] [place] [address] 68081 Cardiovascular Disease 03/25/23 Dakota Tatum MD [address] [place] [address] Assigned Heart and Vascular Provider 05/01/23 [place] [address] [address] Assigned Musculoskeletal Provider 04/12/24 documented as of this encounter
--- OUTSIDE RECORDS SUMMARY | 2024-07-28 12:45 | XMS_ITS | Encounter Summary ---
Author Organization [place] Address [address] [place] [address] Care Team Providers Care Electronic Warfare Technical Name Role Phone Alfreda Ray PA-C Primary Care Provider + Alfreda Ray PA-C Unavailable [phone] Katrin Orellana PA-C Unavailable Shanna Vang-C Unavailable [phone] Fransisco Eddy MD Unavailable Cristina Hsieh [facility] Unavailable Alfreda Ray PA-C Unavailable [phone] Cristina Hsieh [facility] Unavailable Dakota Tatum MD Unavailable [phone] Dakota Tatum MD Unavailable [phone] Srinivas Marie DO Unavailable [phone] Reason for Visit * Reason Onset Date Comments Prior Auth - Medication 07/04/2024 Rinvoq P A and FPAP renewal Encounter Details Date Type Department Care Team (Late st Contact Info) Description 07/04/2024 [facility] [address] [address] Fransisco Eddy MD [address] [place] [address] Prior Auth - Medication (Rinvoq PA and FPAP renewal) Social History Tobacco Use Types Packs/Day Years [...] in an overnight mcc, or couch-surfing.) Yes 03/15/2024 Are you worried [...] Sex Assigned at Female 08/17/2018 7:56 AM POLISHING PAD MOUNTER Legal Sex Female 4:24 AM POLISHING PAD MOUNTER Gender Identity Female 08/17/2018 7:56 AM POLISHING PAD MOUNTER Sexual Orientation Straight 08/17/2018 7: 56 AM POLISHING PAD MOUNTER documented as of this encounter Miscellaneous Notes * Telephone Encounter - Fartun Carrera - 07/25/2024 1:07 PM CST Images from the original note were not included. SHING PAD MOUNTER * Telephone Encounter - Fartun Carrera - 07/18/2024 3:15 PM CST Sadia called back and confirmed that she no longer takes Rinvoq. No further action needed at this time. SHING PAD MOUNTER * Telephone Encounter - Fartun Carrera - 07/18/2024 1:11 PM CST Saw a message in ERx that sadia is no longer taking Rinvoq. Left VM for sadia to confirm. SHING PAD MOUNTER * Telephone Encounter - Fartun Carrera - 07/04/2024 11:21 AM CST Images from the original note were not included. LOYDA INITIATED Medication: RINVOQ 15 MG PO TB24 [facility] Name: [facility] Date submitted: 07/04/2024 11:21 AM [facility] Phone: [facility] Fax: Household:2 Sent My Chart msg for updated income verification PA [id number] final approval Medication: RINVOQ 15 MG PO TB24 Insurance Company: Pharmacy Filling the Rx: [facility] - [place], [place] - [address] Filling Pharmacy Phone: Filling Pharmacy Fax: Start Date: 07/04/2024 SHING PAD MOUNTER documented in this encounter Plan of Treatment Upcoming Encounters Date Type Department Care Team (Late st Contact Info) Description 09/07/2024 10:00 AM CDT Office Visit [facility] [address] [phone] Fransisco Eddy MD [address] [place] [address] 88 [place], [place] [address] 09/18/2024 2:00 PM CDT Virtual Visit [facility] [place] [address] 105 [place] [phone] Shanna Vang PA-C [address] [place] [address] 03/29/2025 3:40 PM CDT Office Visit [address] [place] [phone] Alfreda Ray PA-C [address] [place] [address] 393712 documented as of this encounter Visit Diagnoses Not on filedocumented in this encounter Additional Health Concerns Assessment Noted Time PHQ-9 Depression Total Score: 5 03/09/20 23 10:57 AM CDT documented as of this encounter Care Teams Electronic Warfare Technical Relationship Specialty Start Date End Date Alfreda Ray PA-C [address] [place] [address] PCP - General Family Medicine 12/30/21 Alfreda Ray PA-C [address] [place] [address] 21781 Referring Physician Family Medicine 12/31/21 Katrin Orellana PA-C [address] [place] [address] 98 [place] [address] Physician Service Tech/Welder Dermatology 12/31/21 Shanna Vang PA-C [address] [place], [place] 812954 Assigned Cancer Care Provider 01/10/22 Fransisco Eddy MD [address] [place] [address] 300385 Assigned Rheumatology Provider 05/09/22 Cristina Hsieh [facility] [address] [facility] LISBETH HERNANDEZ [address] Pharmacist Pharmacist 09/07/22 Alfreda Ray PA-C [address] [place] [address]33 Assigned PCP 08/29/22 Cristina Hsieh [facility] [address] [facility] 101 [place] [address] Assigned MTM Pharmacist 09/26/22 Dakota Tatum MD [address] [place] [address] Cardiovascular Disease 03/25/23 Dakota Tatum MD [address] [place] [address] 164735 Assigned Heart and Vascular Provider 05/01/23 [place] [address] [address], [facility] [address] [place] [address] Assigned Musculoskeletal Provider 04/12/24 documented as of this encounter
--- OUTSIDE RECORDS SUMMARY | 2024-07-28 12:45 | XMS_ITS | Encounter Summary ---
Author Organization [facility] Address [address] [place] [address] Care Team Providers Care Raw Hide Trimmer Name Role Phone Esperanza Gatica MD Primary Care Provider + Esperanza Gatica MD Unavailable + Esperanza Gatica MD Unavailable + Esperanza Gatica MD Unavailable + Esperanza Gatica MD Unavailable + Esperanza Gatica MD Unavailable + Jesús Orourke MD Unavailable Alfreda Ray-C Primary Care Provider + Alfreda Ray-C Unavailable + [phone] Katrin OrellanaC Unavailable +[phone] Shanna Vang-C Unavailable +[phone] Fransisco Eddy MD Unavailable [phone] Esperanza Gatica MD Unavailable + Esperanza Gatica MD Unavailable + Katrin OrellanaC Unavailable +[phone] Cristina Hsieh [facility] Unavailable +[phone] Rya, Alfreda Liu PA-C Unavailable +[phone] Ray, Alfreda Liu PA-C Unavailable +[phone] Cristina Hsieh [facility] Unavailable +[phone] NicholDakota yousif MD Unavailable [phone] LaDakota guerra MD Unavailable [phone] Srinivas Marie DO Unavailable [phone] Reason for Visit * Reason Onset Date Comments MyChart Communication 10/04/2018 Encounter Details Date Type Department Care Team (Late st Contact Info) Description 10/04/2018 MyC Medical Advice [address], [address] [place] [address] [place] [address] [place] [address] MyChart Communication Social History Tobacco [...] Assigned at Female 08/17/2018 7:56 AM BRAKE REPAIRER RAILROAD Legal Sex Female 4:24 AM BRAKE REPAIRER RAILROAD Gender Identity Female 08/17/2018 7:56 AM BRAKE REPAIRER RAILROAD Sexual Orientation Straight 08/17/2018 7: 56 AM BRAKE REPAIRER RAILROAD documented as of this encounter Plan of Treatment Upcoming Encounters Date Type Department Care Team (Late st Contact Info) Description 09/07/2024 10:00 AM CDT Office Visit [address] 200 [place] [address] Fransisco Eddy MD [address] [place] [address] 09/18/2024 2:00 PM CDT Virtual Visit [facility] [address] [facility] 105 [place] [address] Shanna Vang PA-C [address] [place] [address] 03/29/2025 3:40 PM CDT Office Visit [address] [place] [address] Alfreda Ray PA-C [address] [place] [address] 736742 documented as of this encounter Visit Diagnoses Not on filedocumented in this encounter Additional Health Concerns Infection Onset Date Last Indicated Resolved Time Rule Out COVID-19 05/08/2021 05/08/2021 05/09/2021 9:08 PM BRAKE REPAIRER RAILROAD Assessment Noted Time PHQ-9 Depression Total Score: 1 08/20/19 19 1:44 PM BRAKE REPAIRER RAILROAD documented as of this encounter Care Teams Raw Hide Trimmer Relationship Specialty Start Date End Date Esperanza Gatica MD PCP - General Family Practice 10/13/11 12/29/21 Alfreda Ray PA-C [address] [place] [address] 099182 PCP - General Family Medicine 12/30/21 [place] [address] LISB[place] GARCIA [address] Assigned PCP 12/05/17 09/30/19 [place] [address] [place] GARCIA 17283 Assigned PCP 10/01/19 03/02/20 [place] [address] [place] [address] Assigned PCP 03/03/20 05/25/20 [place] [address] [place] [address] Assigned PCP 05/26/20 09/28/20 [place] [address] [place] [address] Assigned PCP 09/29/20 07/31/22 [place] [address] [place] [address] [address] Assigned Musculoskeletal Provider 10/20/20 04/17/22 Alfreda Ray PA-C [address] [place] [address] 556542 Referring Physician Family Medicine 12/31/21 Katrin Orellana PA-C [address] [place] [address] 367695 Physician Tumbler Tender Dermatology 12/31/21 Shanna Vang PA-C [address] [place] [address] 497594 Assigned Cancer Care Provider 01/10/22 Fransisco Eddy MD [address] [place] [address] Assigned Rheumatology Provider 05/09/22 [place] [address] [address] [address] Assigned Pain Medication Provider 06/29/22 09/04/22 [place] [address] [place] [address] Assigned PCP 08/15/22 08/28/22 Katrin Orellana PA-C [address] [place] [address] Assigned Surgical Provider 08/15/22 02/10/24 Cristina Hsieh [facility] [address] [facility] LISBETH HERNANDEZ [address] Pharmacist Pharmacist 09/07/22 Alfreda Ray PA-C [address] [place] [address] 18217 Assigned Pain Medication Provider 09/05/22 09/10/23 Alfreda Ray PA-C [address] [place] [address] 50098 Assigned PCP 08/29/22 Cristina Hsieh [facility] [address] [address] Assigned MTM Pharmacist 09/26/22 Dakota Tatum MD [address] [place] [address]481 Cardiovascular Disease 03/25/23 Dakota Tatum MD 6 [place], [place] 185325 Assigned Heart and Vascular Provider 05/01/23 [place] [address] [address], [address] [address] Assigned Musculoskeletal Provider 04/12/24 documented as of this encounter
--- OUTSIDE RECORDS SUMMARY | 2024-07-28 12:45 | XMS_ITS | Encounter Summary ---
Author Organization [place] Address [address] [place] [address] Care Team Providers Care Battery Wrecker Operator Name Role Phone Esperanza Gatica MD Primary Care Provider + Esperanza Gatica MD Unavailable + Esperanza Gatica MD Unavailable + Esperanza Gatica MD Unavailable + Esperanza Gatica MD Unavailable + Esperanza Gatica MD Unavailable + Jesús Orourke MD Unavailable Alfreda Ray-C Primary Care Provider + Alfreda Ray-C Unavailable + [phone] Katrin OrellanaC Unavailable +[phone] Shanna Vang-C Unavailable +[phone] Fransisco Eddy MD Unavailable +[phone] Esperanza Gatica MD Unavailable + Esperanza Gatica MD Unavailable + Katrin OrellanaC Unavailable +[phone] Cristina Hsieh [facility] Unavailable +[phone] Ho Raymustapha Liu PA-C Unavailable +[phone] Ray, Alfreda Liu PA-C Unavailable +[phone] Cristina Hsieh [facility] Unavailable +[phone] Dakota Tatum MD Unavailable +[phone] Dakota Tatum MD Unavailable +[phone] Srinivas Marie DO Unavailable +[phone] Reason for Visit * Reason Onset Date Comments Medication Question 09/19/2018 Gabapentin d osing Encounter Details Date Type Department Care Team (Late st Contact Info) Description 09/19/2018 MyC Medical Advice [address], [address] [place] [address] [place] [address] [place] [address] Medication Question (Gabapentin dosing) Social [...] Assigned at Female 08/17/2018 7:56 AM ENVIRONMENTAL TEST TECHNICIAN Legal Sex Female 4:24 AM ENVIRONMENTAL TEST TECHNICIAN Gender Identity Female 08/17/2018 7:56 AM ENVIRONMENTAL TEST TECHNICIAN Sexual Orientation Straight 08/17/2018 7: 56 AM ENVIRONMENTAL TEST TECHNICIAN documented as of this encounter Miscellaneous [...] CDT Office Visit [facility] [address] [place] [phone] Fransisco Eddy MD [address] [place] [address] 88 [place], [place] [phone] 09/18/2024 2:00 PM CDT Virtual Visit [facility] [address] 105 [place] [phone] Shanna Vang, PA-C [address] [place] [address] 03/29/2025 3:40 PM CDT Office Visit [address] [place] [phone] Alfreda Ray PA-C [address] [place] [address] 005782 documented as of this encounter Visit Diagnoses Not on filedocumented in this encounter Additional Health Concerns Infection Onset Date Last Indicated Resolved Time Rule Out COVID-19 05/08/2021 05/08/2021 05/09/2021 9:08 PM ENVIRONMENTAL TEST TECHNICIAN Assessment Noted Time PHQ-9 Depression Total Score: 1 08/20/19 19 1:44 PM ENVIRONMENTAL TEST TECHNICIAN documented as of this encounter Care Teams Battery Wrecker Operator Relationship Specialty Start Date End Date Esperanza Gatica MD PCP - General Family Practice 10/13/11 12/29/21 Alfreda Ray PA-C [address] [place] [address] 18296 PCP - General Family Medicine 12/30/21 [place] [address] [address] GARCIA 74684 Assigned PCP 12/05/17 09/30/19 [place] [address] [address]IA 17504 Assigned PCP 10/01/19 03/02/20 [place] [address] [address]IA 99767 Assigned PCP 03/03/20 05/25/20 [place] [address] [address]ARCIA 31562 Assigned PCP 05/26/20 09/28/20 [place] [address] [address] GARCIA 91891 Assigned PCP 09/29/20 07/31/22 [place] [address] [address] [place]B[address] GALAN [address]758 Assigned Musculoskeletal Provider 10/20/20 04/17/22 Alfreda Ray PA-C [address] [place] [address] 27437 Referring Physician Family Medicine 12/31/21 Katrin Orellana PA-C [address] [place] [address] Physician Gun Stock Maker Dermatology 12/31/21 Shanna Vang PA-C [facility] . [address] [place] [address] 611734 Assigned Cancer Care Provider 01/10/22 Fransisco Eddy MD [address] [place] [address] 185305 Assigned Rheumatology Provider 05/09/22 [place] [address] [place] [address] Assigned Pain Medication Provider 06/29/22 09/04/22 [place] [address] [address] [address] Assigned PCP 08/15/22 08/28/22 Katrin Orellana PA-C [address] [place] [address] 23990 Assigned Surgical Provider 08/15/22 02/10/24 Cristina Hsieh, [facility] [address] [place] [address] [place] [address] Pharmacist Pharmacist 09/07/22 Alfreda Ray PA-C [address] [place] [address] 66819 Assigned Pain Medication Provider 09/05/22 09/10/23 Alfreda Ray PA-C [address] [place] [address] 42816 Assigned PCP 08/29/22 Cristina Hsieh, [facility] [address] [place] [address] 19138 Assigned MTM Pharmacist 09/26/22 Dakota Tatum MD [address] [place] [address] 08001 Cardiovascular Disease 03/25/23 Dakota Tatum MD [address] [place] [address] 31725 Assigned Heart and Vascular Provider 05/01/23 [place] [address] [address] Assigned Musculoskeletal Provider 04/12/24 documented as of this encounter
--- OUTSIDE RECORDS SUMMARY | 2024-07-28 12:45 | XMS_ITS | Encounter Summary ---
Author Organization [place] Address [address] [place] [address] Care Team Providers Care Ceramic Mold Designer Name Role Phone Esperanza Gatica MD Primary Care Provider + Esperanza Gatica MD Unavailable +[phone] Esperanza Gatica MD Unavailable +[phone] Esperanza Gatica MD Unavailable +[phone] Esperanza Gatica MD Unavailable +[phone] Esperanza Gatica MD Unavailable +[phone] Esperanza Gatica MD Unavailable +[phone] Jesús Orourke MD Unavailable Alfreda RayC Primary Care Provider + Alfreda Ray PA-C Unavailable + [phone] Katrin Orellana PA-C Unavailable +[phone] Shanna VangC Unavailable +[phone] Fransisco Eddy MD Unavailable +[phone] Esperanza Gatica MD Unavailable +[phone] Esperanza Gatica MD Unavailable +[phone] Katrin Orellana PA-C Unavailable Cristina Hsieh [facility] Unavailable +[phone] Cory Alfreda Liu PA-C Unavailable +[phone] Alfreda Ray Alexa KING Unavailable +[phone] Cristina Hsieh [facility] Unavailable [phone] Dakota Tatum MD Unavailable Dakota Tatum MD Unavailable [phone] Srinivas Marie DO Unavailable [phone] Reason for Visit * Reason Comments Medication Refill simvastatin (ZOCOR) 20 MG tablet Encounter Details Date Type Department Care Team (Late st Contact Info) Description 08/14/[address], [address] [place] [address] Zenaida Coon APRN PHONOGRAPH NEEDLE TIP MAKER [address] [place] [address] Medication Refill (simvastatin (ZOCOR) 20 [...] Sex Assigned at Female 08/17/2018 7:56 AM EMS HELICOPTER PILOT Legal Sex Female 4:24 AM EMS HELICOPTER PILOT Gender Identity Female 08/17/2018 7:56 AM EMS HELICOPTER PILOT Sexual Orientation Straight 08/17/2018 7: 56 AM EMS HELICOPTER PILOT documented as of this encounter Miscellaneous Notes * Telephone Encounter - Leigha Rinaldi RN - 08/16/2018 12:26 PM CST Prescription approved per [facility] Refill Protocol. Leigha Rinaldi RN HELICOPTER PILOT * Telephone Encounter - Yohan Whitaker 08/15/2018 [...] 90 days) Aug 19, 2018 11:00 AM EMS HELICOPTER PILOT PHYSICAL with Esperanza Gatica MD [facility] [address] [place] [address], [facility] 100 [facility] [address] 90 tablet 3 Sig: [...] No positive test in past 12 months HELICOPTER PILOT documented in this encounter Plan of Treatment Upcoming Encounters Date Type Department Care Team (Late st Contact Info) Description 09/07/2024 10:00 AM CDT Office Visit [facility] [address] [address] Fransisco Eddy MD [address] [place] [address] 09/18/2024 2:00 PM CDT Virtual Visit [facility] [address] [place] [address] Shanna Vang PA-C [address] [place] [address] 03/29/2025 3:40 PM CDT Office Visit [address] [place] [address] Alfreda Ray PA-C [address] [place] [address] 088932 documented as of this encounter Visit Diagnoses Diagnosis Hyperlipidemia LDL goal <160 Other and unspecified hyperlipidemia documented in this encounter Additional Health Concerns Infection Onset Date Last Indicated Resolved Time Rule Out COVID-19 05/08/2021 05/08/2021 05/09/2021 9:08 PM EMS HELICOPTER PILOT Assessment Noted Time PHQ-9 Depression Total Score: 1 04/05/20 18 7:16 AM CDT documented as of this encounter Care Teams Ceramic Mold Designer Relationship Specialty Start Date End Date Esperanza Gatica MD PCP - General Family Practice 10/13/11 12/29/21 [place] [address] [address] GARCIA [address] PCP - Assigned PCP 12/05/17 08/23/18 Alfreda Ray PA-C [address] [place] [address] 621802 PCP - General Family Medicine 12/30/21 [place] [address] [address] GARCIA 67943 Assigned PCP 12/05/17 09/30/19 [place] [address] [address] [address] Assigned PCP 10/01/19 03/02/20 [place] [address] [address]ARCIA 70161 Assigned PCP 03/03/20 05/25/20 [place] [address] [address] GARCIA 10090 Assigned PCP 05/26/20 09/28/20 [place] [address] [address]ARCIA 54809 Assigned PCP 09/29/20 07/31/22 Jesú[place] [address] [place] [address] [place] [address]506 Assigned Musculoskeletal Provider 10/20/20 04/17/22 Alfreda Ray PA-C [address] [place] [address] 203002 Referring Physician Family Medicine 12/31/21 Katrin Orellana PA-C [address] [place] [address] 821495 Physician Mainframe Systems Programmer Dermatology 12/31/21 Shanna Vang PA-C [address] [place] [address]1665 Assigned Cancer Care Provider 01/10/22 Fransisco Eddy MD [address] [place] [address] 39478 Assigned Rheumatology Provider 05/09/22 [place] [address] [place] [address] Assigned Pain Medication Provider 06/29/22 09/04/22 [place] [address] [place] [address] Assigned PCP 08/15/22 08/28/22 Katrin Orellana PA-C [address] [place] [address] 90856 Assigned Surgical Provider 08/15/22 02/10/24 Cristina Hsieh [facility] [address] [place] [address] LISBETH HERNANDEZ [address] Pharmacist Pharmacist 09/07/22 Alfreda Ray PA-C [address] [place] [address]9416 Assigned Pain Medication Provider 09/05/22 09/10/23 Alfreda Ray PA-C [address] [place] [address] 67573 Assigned PCP 08/29/22 Cristina Hsieh [facility] [address] [address] Assigned MTM Pharmacist 09/26/22 Dakota Tatum MD [address] [place] [address]7480 Cardiovascular Disease 03/25/23 Dakota Tatum MD [address] [place] [address] 49366 Assigned Heart and Vascular Provider 05/01/23 [place] [address] [address], [address] [address] Assigned Musculoskeletal Provider 04/12/24 documented as of this encounter
--- OUTSIDE RECORDS SUMMARY | 2024-07-28 12:45 | XMS_ITS | Encounter Summary ---
Author Organization [employer] Address [address] [place] [address]47 Care Team Providers Care Head Of Digital Advertising & Integration Name Role Phone Esperanza Gatica MD Primary Care Provider + Esperanza Gatica MD Unavailable +[phone] Esperanza Gatica MD Unavailable +[phone] Esperanza Gatica MD Unavailable +[phone] Esperanza Gatica MD Unavailable +105 Esperanza Gatica MD Unavailable +544 Esperanza Gatica MD Unavailable +[phone] Jesús Orourke MD Unavailable Alfreda RayC Primary Care Provider + Alfreda Ray PA-C Unavailable + [phone] Katrin Orellana PA-C Unavailable [phone] Shanna VangC Unavailable +[phone] Fransisco Eddy MD Unavailable +[phone] Esperanza Gatica MD Unavailable +[phone] Esperanza Gatica MD Unavailable +[phone] Katrin Orellana PA-C Unavailable Cristina Hsieh [facility] Unavailable [phone] RayAlfreda PA-C Unavailable +[phone] Cory Alfreda Liu PA-C Unavailable +[phone] Cristina Hsieh [facility] Unavailable Dakota Tatum MD Unavailable Dakota Tatum MD Unavailable Srinivas Marie DO Unavailable [phone] Reason for Visit * Reason Onset Date Comments Medication Refill atenolol (TENO RMIN) 25 MG tablet Refill Request 08/14/2018 lisinopril-hydro chlorothiazide (PRINZIDE/ZESTORETIC) 10-12.5 MG per tablet Refill Request 08/14/2018 traZODone (DESYR EL) 50 MG tablet Encounter Details Date Type Department Care Team (Late st Contact Info) Description 08/14/[address], [facility] 100 [place] [address] [place] [address] [place] [address] Medication Refill (atenolol (TENORMIN) 25 [...] Sex Assigned at Female 08/17/2018 7:56 AM MAINTAINER SEWER AND WATERWORKS Legal Sex Female 4:24 AM MAINTAINER SEWER AND WATERWORKS Gender Identity Female 08/17/2018 7:56 AM MAINTAINER SEWER AND WATERWORKS Sexual Orientation Straight 08/17/2018 7: 56 AM MAINTAINER SEWER AND WATERWORKS documented as of this encounter Miscellaneous Notes * Telephone Encounter - Leigha Rinaldi RN - 08/16/2018 12:39 PM CST Prescription approved per [facility] [place] Refill Protocol. Leigha Rinaldi RN TAINER SEWER AND WATERWORKS * Telephone Encounter - Yohan Whitaker Aby [...] 90 days) Aug 19, 2018 11:00 AM MAINTAINER SEWER AND WATERWORKS PHYSICAL with Esperanza Gatica MD [facility]) [address] [place] [address], [address] [address] 90 tablet 1 Sig: TAKE [...] 90 days) Aug 19, 2018 11:00 AM MAINTAINER SEWER AND WATERWORKS PHYSICAL with Esperanza Gatica MD [facility] ([facility]) [facility], [address] [place] [address] 90 tablet 2 Sig: TAKE ONE [...] 90 days) Aug 19, 2018 11:00 AM MAINTAINER SEWER AND WATERWORKS PHYSICAL with Esperanza Gatica MD [facility] ([facility]) [facility], [address] [facility] [address] 90 tablet 3 Sig: TAKE ONE TABLET [...] No positive test in past 12 months TAINER SEWER AND WATERWORKS documented in this encounter Plan of Treatment Upcoming Encounters Date Type Department Care Team (Late st Contact Info) Description 09/07/2024 10:00 AM CDT Office Visit [facility] [address] [phone] Fransisco Eddy MD [address] [place] [address] 067885 09/18/2024 2:00 PM CDT Virtual Visit [facility] [address] [place] [address] Shanna Vang, PARobinson [facility] [address] [place] [address] 859914 03/29/2025 3:40 PM CDT Office Visit [facility] [address] [place] [address] [place] [phone] Alfreda Ray PA-C [address] [place] [address] 581942 documented as of this encounter Visit Diagnoses Diagnosis HTN, goal below 140/90 Unspecified essential hypertension HTN (hypertension), benign Essential hypertension, benign Insomnia, unspecified type documented in this encounter Additional Health Concerns Infection Onset Date Last Indicated Resolved Time Rule Out COVID-19 05/08/2021 05/08/2021 05/09/2021 9:08 PM MAINTAINER SEWER AND WATERWORKS Assessment Noted Time PHQ-9 Depression Total Score: 1 04/05/20 18 7:16 AM CDT documented as of this encounter Care Teams Head Of Digital Advertising & Integration Relationship Specialty Start Date End Date Esperanza Gatica MD PCP - General Family Practice 10/13/11 12/29/21 [place] [address] [address] GARCIA [address] PCP - Assigned PCP 12/05/17 08/23/18 Alfreda Ray PA-C [address] [place] [address] PCP - General Family Medicine 12/30/21 [place] [address] [address] GARCIA 59101 Assigned PCP 12/05/17 09/30/19 [place] [address] [address] GARCIA 43089 Assigned PCP 10/01/19 03/02/20 [place] [address] [address] GARCIA 76095 Assigned PCP 03/03/20 05/25/20 [place] [address] [address] GARCIA 56174 Assigned PCP 05/26/20 09/28/20 [place] [address] [address] GARCIA 55155 Assigned PCP 09/29/20 07/31/22 [place] [address] [place] [address] [address] Assigned Musculoskeletal Provider 10/20/20 04/17/22 Alfreda Ray PA-C [address] [place] [address] Referring Physician Family Medicine 12/31/21 Katrin Orellana PA-C [address] [place] [address] Physician Authorizer Dermatology 12/31/21 Shanna Vang PA-C [address] [address] Assigned Cancer Care Provider 01/10/22 Fransisco Eddy MD [address] [place] [address]87[address] Assigned Rheumatology Provider 05/09/22 [place] [address] [address]ARCIA [address] Assigned Pain Medication Provider 06/29/22 09/04/22 [place] [address] [address]ARCIA 30071 Assigned PCP 08/15/22 08/28/22 Katrin Orellana PA-C [address] [place] [address] 12919 Assigned Surgical Provider 08/15/22 02/10/24 Cristina Hsieh [place] [address] [facility] LISBETH HERNANDEZ [address] Pharmacist Pharmacist 09/07/22 Alfreda Ray PA-C [address] [place] [address] 897422 Assigned Pain Medication Provider 09/05/22 09/10/23 Alfreda Ray PA-C [address] [place] [address] 898702 Assigned PCP 08/29/22 Cristina Hsieh [facility] [address] [place] [address]76 Assigned MTM Pharmacist 09/26/22 Dakota Tatum MD [address] [place] [address] 05149 Cardiovascular Disease 03/25/23 Dakota Tatum MD [address] [place] [address] 620415 Assigned Heart and Vascular Provider 05/01/23 [place] [address] [place] [address] 572137 Assigned Musculoskeletal Provider 04/12/24 documented as of this encounter
--- OUTSIDE RECORDS SUMMARY | 2024-07-28 12:45 | XMS_ITS | Encounter Summary ---
Author Organization [place] Address [address] [place] [address] Care Team Providers Care Computer Recycling Worker Name Role Phone Esperanza Gatica MD Primary Care Provider + Esperanza Gatica MD Unavailable +[phone] Esperanza Gatica MD Unavailable +[phone] Esperanza Gatica MD Unavailable +397 Esperanza Gatica MD Unavailable +[phone] Esperanza Gatica MD Unavailable +[phone] Esperanza Gatica MD Unavailable +[phone] Jesús Orourke MD Unavailable Alfreda RayC Primary Care Provider + Alfreda Ray PA-C Unavailable + [phone] Katrin Orellana PA-C Unavailable +[phone] Shanna VangC Unavailable +[phone] Fransisco Eddy MD Unavailable +[phone] Esperanza Gatica MD Unavailable +[phone] Esperanza Gatica MD Unavailable +[phone] Katrin Orellana PA-C Unavailable Cristina Hsieh [facility] Unavailable RayAlfreda PA-C Unavailable +[phone] Ho Raymustapha Liu PA-C Unavailable +[phone] Cristina Hsieh [facility] Unavailable Dakota Tatum MD Unavailable Dakota Tatum MD Unavailable Srinivas Marie DO Unavailable Reason for Visit * Reason Onset Date Comments Medication Question 05/10/2018 Encounter Details Date Type Department Care Team (Late st Contact Info) Description 05/10/2018 MyC Medical Advice [address], [address] [place] [address] [place] [address] [place] [address] Medication Question Social History Tobacco [...] Sex Assigned at Female 08/17/2018 7:56 AM DATA CENTER ARCHITECT Legal Sex Female 4:24 AM DATA CENTER ARCHITECT Gender Identity Female 08/17/2018 7:56 AM DATA CENTER ARCHITECT Sexual Orientation Straight 08/17/2018 7: 56 AM DATA CENTER ARCHITECT documented as of this encounter Miscellaneous Notes * Telephone Encounter - Leigha Rinaldi RN - 05/10/2018 3:41 PM CST ASBESTOS BRAKE LINING FINISHER HELPER checked 05/10/2018: Does not reflect that patient received rx's. 04/15/2018 GABAPENTIN 100 MG CAPSULE 120.00 04/04/2018 TEMAZEPAM 7.5 MG CAPSULE 30.00 04/04/2018 TRAMADOL HCL 50 MG TABLET 180.00 Leigha Rinaldi RN CENTER ARCHITECT documented in this encounter Plan of Treatment Upcoming Encounters Date Type Department Care Team (Late st Contact Info) Description 09/07/2024 10:00 AM CDT Office Visit [facility] [place] [address] [facility] 200 [place] [phone] Fransisco Eddy MD [address] [place] [address] 88 [place], [place] 655515 09/18/2024 2:00 PM CDT Virtual Visit [facility] [address] [place] [address] 105 [place] [phone] Shanna Vang, PARobinson [address] [place] [address] 03/29/2025 3:40 PM CDT Office Visit [address] [phone] Alfreda Ray PA-C [address] [place] [address] [phone] documented as of this encounter Visit Diagnoses Not on filedocumented in this encounter Additional Health Concerns Infection Onset Date Last Indicated Resolved Time Rule Out COVID-19 05/08/2021 05/08/2021 05/09/2021 9:08 PM DATA CENTER ARCHITECT Assessment Noted Time PHQ-9 Depression Total Score: 1 04/05/20 18 7:16 AM CDT documented as of this encounter Care Teams Computer Recycling Worker Relationship Specialty Start Date End Date Esperanza Gatica MD PCP - General Family Practice 10/13/11 12/29/21 [place] [address] [place] [address] PCP - Assigned PCP 12/05/17 08/23/18 Alfreda Ray PA-C [address] [place] [address]46 PCP - General Family Medicine 12/30/21 [place] [address] [place] [address] Assigned PCP 12/05/17 09/30/19 [place] [address] [place] [address] Assigned PCP 10/01/19 03/02/20 [place] [address] [place] [address] Assigned PCP 03/03/20 05/25/20 [place] [address] [place] [address] Assigned PCP 05/26/20 09/28/20 [place] [address] [place] [address] Assigned PCP 09/29/20 07/31/22 [place] [address] [place] [address] Assigned Musculoskeletal Provider 10/20/20 04/17/22 Alfreda Ray PA-C [address] [place] [address] Referring Physician Family Medicine 12/31/21 Katrin Orellana PA-C [address] [place] [address] Physician Credit Assessment Analyst Dermatology 12/31/21 Shanna Vang PA-C [address] [address] Assigned Cancer Care Provider 01/10/22 Fransisco Eddy MD [address] [place] [address] Assigned Rheumatology Provider 05/09/22 [place] [address] [place] [address] Assigned Pain Medication Provider 06/29/22 09/04/22 [place] [address] [place] [address] Assigned PCP 08/15/22 08/28/22 Katrin Orellana PA-C [address] [place] [address] 76397 Assigned Surgical Provider 08/15/22 02/10/24 Cristina Hsieh [facility] [address] [facility] LISBETH HERNANDEZ [address] Pharmacist Pharmacist 09/07/22 Alfreda Ray PA-C [address] [place] [address]28 Assigned Pain Medication Provider 09/05/22 09/10/23 Alfreda Ray PA-C [address] [place] [address] 15300 Assigned PCP 08/29/22 Cristina Hsieh, [facility] [address] [place] [address] 35200 Assigned MTM Pharmacist 09/26/22 Dakota Tatum MD [address] [place] [address] 18659 Cardiovascular Disease 03/25/23 Dakota Tatum MD [address] [place] [address]01 Assigned Heart and Vascular Provider 05/01/23 [place] [address] [address]UM, [address] [address] Assigned Musculoskeletal Provider 04/12/24 documented as of this encounter
--- OUTSIDE RECORDS SUMMARY | 2024-07-28 12:45 | XMS_ITS | Encounter Summary ---
Author Organization [facility] Address [address] [place] [address] Care Team Providers Care Slot Machine Key Person Name Role Phone Kelly Haley MD Primary Care Provider + Kelly Haley MD Unavailable +[phone] Kelly Haley MD Unavailable +[phone] Kelly Haley MD Unavailable +[phone] Kelly Haley MD Unavailable +[phone] Kelly Haley MD Unavailable +[phone] Kelly Haley MD Unavailable +[phone] Jesús Orourke MD Unavailable Alfreda RayC Primary Care Provider + Alfreda Ray PA-C Unavailable + [phone] Katrin Orellana PA-C Unavailable +[phone] Shanna VangC Unavailable +[phone] Fransisco Eddy MD Unavailable [phone] Kelly Haley MD Unavailable +[phone] Kelly Haley MD Unavailable +[phone] Katrin Orellana PA-C Unavailable Cristina Hsieh [facility] Unavailable Cory Alfreda Liu PA-C Unavailable +[phone] Ho Raymustapha Liu PA-C Unavailable +[phone] Cristina Hsieh [facility] Unavailable +[phone] Dakota Tatum MD Unavailable Dakota Tatum MD Unavailable [phone] Srinivas Marie DO Unavailable [phone] Reason for Visit * Reason Onset Date Comments Refill Request 06/16/2018 HYDROcodone-acet aminophen (NORCO) 5-325 MG per tablet Encounter Details Date Type Department Care Team (Late st Contact Info) Description 06/16/2018 MyC Refill [address], [address] [place] [address] [place] [address] [place] [address] Refill Request (HYDROcodone-acetamino phen ... [...] Sex Assigned at Female 08/17/2018 7:56 AM PLATE WORKER HELPER Legal Sex Female 4:24 AM PLATE WORKER HELPER Gender Identity Female 08/17/2018 7:56 AM PLATE WORKER HELPER Sexual Orientation Straight 08/17/2018 7: 56 AM PLATE WORKER HELPER documented as of this encounter Miscellaneous Notes * Telephone Encounter - Leigha Rinaldi RN - 06/17/2018 1:45 PM CST Duplicate. Leigha Rinaldi RN E WORKER HELPER * Telephone Encounter - Diya Stone - [...] Score(s): No flowsheet data found. ?? Last [facility] website verification: Done 03.16.18 Last Written Prescription Date: 03/24/18 Last Fill Quantity: 90, # refills: 0 Last Office Visit with [facility] primary care provider: 04/04/2018 Clinic visit frequency required: Q 3 months Future Office visit: Next 5 appointments (look out 90 days) Jul 05, 2018 10:00 AM PLATE WORKER HELPER PHYSICAL with Kelly Haley MD [facility] ([facility]) [address] [place] [address] [facility] [address] Controlled substance agreement on file: Yes: Date 03/08/15. Processing: Patient will continuous pickling line pickler in clinic AUTOMATION APPLICATION ENGINEER checked in past 3 months? No, route to RN E WORKER HELPER documented in this encounter Plan of Treatment Upcoming Encounters Date Type Department Care Team (Late st Contact Info) Description 09/07/2024 10:00 AM CDT Office Visit [facility] Specialty [address] 200 [place] [address] Fransisco Eddy MD [address] [place] [address] 09/18/2024 2:00 PM CDT Virtual Visit [facility] [address] [place] [address] 105 [place] [address] Shanna Vang PA-C [address] [place] [address] 03/29/2025 3:40 PM CDT Office Visit [address] [place] [address] Alfreda Ray PA-C [address] [place] [address] 596152 documented as of this encounter Visit Diagnoses Diagnosis Primary osteoarthritis involving multiple joints documented in this encounter Additional Health Concerns Infection Onset Date Last Indicated Resolved Time Rule Out COVID-19 05/08/2021 05/08/2021 05/09/2021 9:08 PM PLATE WORKER HELPER Assessment Noted Time PHQ-9 Depression Total Score: 1 04/05/20 18 7:16 AM CDT documented as of this encounter Care Teams Slot Machine Key Person Relationship Specialty Start Date End Date Kelly Haley MD PCP - General Family Practice 10/13/11 12/29/21 [place] [address] LISBETH GARCIA [address] PCP - Assigned PCP 12/05/17 08/23/18 Alfreda Ray PA-C [address] [place] [address] PCP - General Family Medicine 12/30/21 [place] [address] [place] GARCIA [address] Assigned PCP 12/05/17 09/30/19 [place] [address] [place] [address] Assigned PCP 10/01/19 03/02/20 [place] [address] [place] [address] Assigned PCP 03/03/20 05/25/20 [place] [address] [place] [address] Assigned PCP 05/26/20 09/28/20 [place] [address] [place] [address] Assigned PCP 09/29/20 07/31/22 [place] [address] [place] [address] [address] Assigned Musculoskeletal Provider 10/20/20 04/17/22 Alfreda Ray PA-C [address] [place] [address] 686322 Referring Physician Family Medicine 12/31/21 Katrin Orellana PA-C [address] [place] [address] Physician Emblem Cutter Dermatology 12/31/21 Shanna Vang PA-C [address] [place] [address] [place] [address] Assigned Cancer Care Provider 01/10/22 Fransisco Eddy MD [address] [place] [address] 88 [place] [address] Assigned Rheumatology Provider 05/09/22 [place] [address] [place] [address] Assigned Pain Medication Provider 06/29/22 09/04/22 [place] [address] [address] [place] [address] Assigned PCP 08/15/22 08/28/22 Katrin Orellana PA-C [address] [place] [address] 98 [place] [address] Assigned Surgical Provider 08/15/22 02/10/24 [address] [place] [address] [facility] LISBETH HERNANDEZ [address] Pharmacist Pharmacist 09/07/22 Alfreda Ray PA-C [address] [place] [address] Assigned Pain Medication Provider 09/05/22 09/10/23 Alfreda Ray PA-C [address] [place] [address] Assigned PCP 08/29/22 Cristina Hsieh [facility] [address] [address] [place] [address] Assigned MTM Pharmacist 09/26/22 Dakota Tatum MD [address] [place] [address] Cardiovascular Disease 03/25/23 Dakota Tatum MD [address] [place] [address] Assigned Heart and Vascular Provider 05/01/23 [place] [address] [address], [facility] [address] [place] [address] Assigned Musculoskeletal Provider 04/12/24 documented as of this encounter
--- OUTSIDE RECORDS SUMMARY | 2024-07-28 12:45 | XMS_ITS | Encounter Summary ---
Author Organization [facility] Address [address] [place] [address] Care Team Providers Care Application Lead Name Role Phone Esperanaz Gatica MD Primary Care Provider + Esperanza Gatica MD Unavailable +[phone] Esperanza Gatica MD Unavailable +[phone] Esperanza Gatica MD Unavailable +[phone] Esperanza Gatica MD Unavailable +[phone] Esperanza Gatica MD Unavailable +[phone] Esperanza Gatica MD Unavailable +[phone] Jesús Orourke MD Unavailable Alfreda RayC Primary Care Provider + Alfreda Ray PA-C Unavailable + [phone] Katrin Orellana PA-C Unavailable [phone] Shanna VangC Unavailable +[phone] Fransisco Eddy MD Unavailable [phone] Esperanza Gatica MD Unavailable +[phone] Esperanza Gatica MD Unavailable +[phone] Katrin Orellana PA-C Unavailable Cristina Hsieh [facility] Unavailable Cory Alfreda Liu PA-C Unavailable [phone] Alfreda Ray Alexa KING Unavailable [phone] Cristina Hsieh [facility] Unavailable Dakota Tatum MD Unavailable Dakota Tatum MD Unavailable [phone] Srinivas Marie DO Unavailable Reason for Visit * Reason Onset Date Comments MyChart Communication 06/29/2017 Encounter Details Date Type Department Care Team (Late st Contact Info) Description 06/29/2017 MyC Medical Advice [address], [address] [place] [address] [place] [address] [place] [address] MyChart Communication Social History Tobacco [...] Assigned at Female 08/17/2018 7:56 AM GAS MAKER Legal Sex Female 4:24 AM GAS MAKER Gender Identity Female 08/17/2018 7:56 AM GAS MAKER Sexual Orientation Straight 08/17/2018 7: 56 AM GAS MAKER documented as of this encounter Miscellaneous Notes * Telephone Encounter - Yuliet Barrera RN - 06/29/2017 10:28 AM CST Recommend appt for sinus inf Yuliet Barrera RN, BS Clinical Nurse Triage. MAKER documented in this encounter Plan of Treatment Upcoming Encounters Date Type Department Care Team (Late st Contact Info) Description 09/07/2024 10:00 AM CDT Office Visit [facility] [place] 65[address] [facility] 200 [place] [address] Fransisco Eddy MD [address] [place] [address] 88 [place] [address] 09/18/2024 2:00 PM CDT Virtual Visit [facility] [address] [place] [address] 105 [place] [address] Shanna Vang PA-C [address] [place] [address] 03/29/2025 3:40 PM CDT Office Visit [address] [phone] Alfreda Ray PA-C [address] [place] [address] documented as of this encounter Visit Diagnoses Not on filedocumented in this encounter Additional Health Concerns Infection Onset Date Last Indicated Resolved Time Rule Out COVID-19 05/08/2021 05/08/2021 05/09/2021 9:08 PM GAS MAKER Assessment Noted Time PHQ-9 Depression Total Score: 0 08/18/19 17 7:09 AM GAS MAKER documented as of this encounter Care Teams Application Lead Relationship Specialty Start Date End Date Esperanza Gatica MD PCP - General Family Practice 10/13/11 12/29/21 [place] [address] [place] [address] PCP - Assigned PCP 12/05/17 08/23/18 Alfreda Ray PA-C [address] [place] [address] PCP - General Family Medicine 12/30/21 [place] [address] [place] [address] Assigned PCP 12/05/17 09/30/19 [place] [address] [address] [place] [address] Assigned PCP 10/01/19 03/02/20 [place] [address] [place] [address] Assigned PCP 03/03/20 05/25/20 [place] [address] [place] [address] Assigned PCP 05/26/20 09/28/20 [place] [address] [place] [address] Assigned PCP 09/29/20 07/31/22 [place] [address] [place] [address] Assigned Musculoskeletal Provider 10/20/20 04/17/22 Alfreda Ray PA-C [address] [place] [address] Referring Physician Family Medicine 12/31/21 Katrin Orellana PA-C [address] [facility] 98 [place] [address] Physician Currency Counter Dermatology 12/31/21 Shanna Vang PA-C [address] [place] [address] 703784 Assigned Cancer Care Provider 01/10/22 Fransisco Eddy MD [address] [place] [address] 224505 Assigned Rheumatology Provider 05/09/22 [place] [address] [place] [address] Assigned Pain Medication Provider 06/29/22 09/04/22 [place] [address] [place] [address] Assigned PCP 08/15/22 08/28/22 Katrin Orellana PA-C [address] [place] [address] Assigned Surgical Provider 08/15/22 02/10/24 Cristina Hsieh [facility] [address] [facility] LISBETH HERNANDEZ [address] Pharmacist Pharmacist 09/07/22 Alfreda Ray PA-C [address] [place] [address] Assigned Pain Medication Provider 09/05/22 09/10/23 Alfreda Ray PA-C [address] [place] [address] Assigned PCP 08/29/22 Cristina Hsieh [facility] 1600 [facility] 101 [place] [address] Assigned MTM Pharmacist 09/26/22 Dakota Tatum MD [address] [place] [address] 637245 Cardiovascular Disease 03/25/23 Dakota Tatum MD [address] [place] [address] Assigned Heart and Vascular Provider 05/01/23 [place] [address] [address], [facility] [address] [place] [address] Assigned Musculoskeletal Provider 04/12/24 documented as of this encounter
--- OUTSIDE RECORDS SUMMARY | 2024-07-28 12:45 | XMS_ITS | Encounter Summary ---
Author Organization [facility] Address [address] [place] [address] Care Team Providers Care Trust Vault Custodian Name Role Phone Alfreda Ray PA-C Primary Care Provider + Alfreda Ray PA-C Unavailable [phone] Katrin Orellana PA-C Unavailable Shanna Vang-C Unavailable [phone] Fransisco Eddy MD Unavailable [phone] Cristina Hsieh [facility] Unavailable Alfreda Ray PA-C Unavailable +[phone] Cristina Hsieh [facility] Unavailable Dakota Tatum MD Unavailable [phone] Dakota Tatum MD Unavailable [phone] Srinivas Marie DO Unavailable [phone] Encounter Details Date Type Department Care Team (Late st Contact Info) Description 07/04/2024 [facility] [address] [address] Cele Santiago Social History Tobacco Use Types Packs/Day [...] Answer Date Recorded PHQ-2 Score 0 03/16/2024 [facility] [place] of Occupat ional Health - Occupational Stress [...] Assigned at Female 08/17/2018 7:56 AM ASSISTANT CONSTRUCTION SUPERINTENDENT Legal Sex Female 4:24 AM ASSISTANT CONSTRUCTION SUPERINTENDENT Gender Identity Female 08/17/2018 7:56 AM ASSISTANT CONSTRUCTION SUPERINTENDENT Sexual Orientation Straight 08/17/2018 7: 56 AM ASSISTANT CONSTRUCTION SUPERINTENDENT documented as of this encounter Plan of Treatment Upcoming Encounters Date Type Department Care Team (Late st Contact Info) Description 09/07/2024 10:00 AM CDT Office Visit [facility] [address] [phone] Fransisco Eddy MD [address] [place] [address] 88 [place], [place] [address]675 09/18/2024 2:00 PM CDT Virtual Visit [facility] [address] 105 [place] [address] Shanna Vang PAFilemonC [address] [address] 03/29/2025 3:40 PM CDT Office Visit [address] [place] [phone] Alfreda Ray PA-C [address] [place] [address] 976132 documented as of this encounter Visit Diagnoses Not on filedocumented in this encounter Additional Health Concerns Assessment Noted Time PHQ-9 Depression Total Score: 5 03/09/20 23 10:57 AM CDT documented as of this encounter Care Teams Trust Vault Custodian Relationship Specialty Start Date End Date Alfreda Ray PA-C [address] [place] [address] PCP - General Family Medicine 12/30/21 Alfreda Ray PA-C [address] [place] [address] Referring Physician Family Medicine 12/31/21 Katrin Orellana PA-C [address] [place] [address] 98 [place] [address] Physician Swing Tender Dermatology 12/31/21 Shanna Vang PA-C [address] [place] [address] 087844 Assigned Cancer Care Provider 01/10/22 Fransisco Eddy MD [address] [place] [address] 675685 Assigned Rheumatology Provider 05/09/22 Cristina Hsieh [facility] [address] [place] [address] LISBETH HERNANDEZ [address] Pharmacist Pharmacist 09/07/22 Alfreda Ray PA-C [address] [place] [address] Assigned PCP 08/29/22 Cristina Hsieh [facility] 1600 [facility] [place] 101 [place] [address] Assigned MTM Pharmacist 09/26/22 Dakota Tatum MD [address] [place] [address] Cardiovascular Disease 03/25/23 Dakota Tatum MD [address] [place] [address] Assigned Heart and Vascular Provider 05/01/23 [place] [address] [address], [facility] 300 [place] [address] Assigned Musculoskeletal Provider 04/12/24 documented as of this encounter
--- OUTSIDE RECORDS SUMMARY | 2024-07-28 12:46 | XMS_ITS | Encounter Summary ---
Author Organization [facility] Address [address] [place] [address] Care Team Providers Care Dietitian Name Role Phone Esperanza Gatica MD Primary Care Provider + Esperanza Gatica MD Unavailable +[phone] Esperanza Gatica MD Unavailable +[phone] Esperanza Gatica MD Unavailable +[phone] Esperanza Gatica MD Unavailable +[phone] Esperanza Gatica MD Unavailable +150 Esperanza Gatica MD Unavailable +[phone] Jesús Orourke MD Unavailable Alfreda RayC Primary Care Provider + Alfreda Ray PA-C Unavailable + [phone] Katrin Orellana PA-C Unavailable [phone] Shanna VangC Unavailable +[phone] Fransisco Eddy MD Unavailable [phone] Esperanza Gatica MD Unavailable +[phone] Esperanza Gatica MD Unavailable +[phone] Katrin Orellana PA-C Unavailable Cristina Hsieh [facility] Unavailable Ho Raymustapha Liu PA-C Unavailable [phone] Alfreda Ray Alexa KING Unavailable +[phone] Cristina Hsieh [facility] Unavailable Dakota Tatum MD Unavailable Dakota Tatum MD Unavailable [phone] Srinivas Marie DO Unavailable [phone] Reason for Visit * Reason Onset Date Comments Refill Request 11/26/2011 vicodin Encounter Details Date Type Department Care Team (Late st Contact Info) Description 11/26/2011 MyC Refill M [address], [facility] 100 [place] [address] [place] [address] [place] [address] Refill Request (vicodin) Social History Tobacco Use Types Packs/Day Years Used Date Smoking Tobacco: Former Cigarettes Q uit: 06/21/1973 Smokeless Tobacco: Former Alcohol Use Standard Drinks/Week Comments Yes 0 (1 standard drink = 0.6 oz pur e alcohol) rarely Comments No Sex and Gender Information Value Date Recorded Sex Assigned at Female 08/17/2018 7:56 AM CHOCOLATE TEMPERER Legal Sex Female 4:24 AM CHOCOLATE TEMPERER Gender Identity Female 08/17/2018 7:56 AM CHOCOLATE TEMPERER Sexual Orientation Straight 08/17/2018 7: 56 AM CHOCOLATE TEMPERER documented as of this encounter Miscellaneous Notes * Telephone Encounter - Kassandra David - 11/27/2011 10:43 AM CDT VICODIN Last OV: 10/13/11 Reason for visit: htn, hyperlipidemia Last fill date: 10/12/11 #30 0R Unable to fill per standing order routed to Dr. Gatica for approval. Kassandra David RN * Telephone Encounter - Kassandra David - 11/27/2011 10:38 AM CDTMessage from MyChart: Original authorizing provider: MD Alexandria Brannon would like a refill of the following medications: HYDROcodone-acetaminophen (VICODIN) 5-500 MG per tablet [Esperanza Gatica MD] Preferred pharmacy: [facility] Comment: documented in this encounter Plan of Treatment Upcoming Encounters Date Type Department Care Team (Late st Contact Info) Description 09/07/2024 10:00 AM CDT Office Visit [facility] [address] 200 [place] [phone] Fransisco Eddy MD [address] [place] [address] 88 [place] [address] 09/18/2024 2:00 PM CDT Virtual Visit [facility] [address] [place] [address] 105 [place] [address] Shanna Vang PA-C [address] [place] [address] 03/29/2025 3:40 PM CDT Office Visit [address] [place] [phone] Alfreda Ray PA-C [address] [place] [address] 645312 documented as of this encounter Visit Diagnoses Diagnosis Osteoarthritis- Primary Osteoarthrosis, unspecified whether generalized or localized, unspecified site documented in this encounter Additional Health Concerns Infection Onset Date Last Indicated Resolved Time Rule Out COVID-19 05/08/2021 05/08/2021 05/09/2021 9:08 PM CHOCOLATE TEMPERER documented as of this encounter Care Teams Dietitian Relationship Specialty Start Date End Date Esperanza Gatica MD PCP - General Family Practice 10/13/11 12/29/21 [place] [address] [place] [address] PCP - Assigned PCP 12/05/17 08/23/18 Alfreda Ray PA-C [address] [place] [address] PCP - General Family Medicine 12/30/21 [place] [address] [place] [address] Assigned PCP 12/05/17 09/30/19 [place] [address] [place] [address] Assigned PCP 10/01/19 03/02/20 [place] [address] [place] [address] Assigned PCP 03/03/20 05/25/20 [place] [address] [place] [address] Assigned PCP 05/26/20 09/28/20 [place] [address] [place] [address] Assigned PCP 09/29/20 07/31/22 Jesú[place] [address] [address] Assigned Musculoskeletal Provider 10/20/20 04/17/22 Alfreda Ray PA-C [address] [place] [address] 583242 Referring Physician Family Medicine 12/31/21 Katrin Orellana PA-C [address] [place] [address] 505505 Physician Retail Center Receptionist Dermatology 12/31/21 Shanna Vang PA-C [address] 328714 Assigned Cancer Care Provider 01/10/22 Fransisco Eddy MD [address] [place] [address] 666365 Assigned Rheumatology Provider 05/09/22 [place] [address] LISBETH GARCIA [address] Assigned Pain Medication Provider 06/29/22 09/04/22 [place] [address] [address]ARCIA [address] Assigned PCP 08/15/22 08/28/22 Katrin Orellana PA-C [address] [place] [address] 393795 Assigned Surgical Provider 08/15/22 02/10/24 Cristina Hsieh, [facility] 3[address] [facility] LISBETH HERNANDEZ [address] Pharmacist Pharmacist 09/07/22 Alfreda Ray PA-C [address] [place] [address] 438182 Assigned Pain Medication Provider 09/05/22 09/10/23 Alfreda Ray PA-C [address] [place] [address] 387472 Assigned PCP 08/29/22 Cristina Hsieh [facility] [address] [place] [address] Assigned MTM Pharmacist 09/26/22 Dakota Tatum MD [address] [place] [address] Cardiovascular Disease 03/25/23 Dakota Tatum MD [address] [place] [address] Assigned Heart and Vascular Provider 05/01/23 [place] [address] [address] , [facility] 300 [place] [address] Assigned Musculoskeletal Provider 04/12/24 documented as of this encounter
--- OUTSIDE RECORDS SUMMARY | 2024-07-28 12:46 | XMS_ITS | Encounter Summary ---
Author Organization [facility] Address [address] [place] [address] Care Team Providers Care Rail Operator Name Role Phone Esperanza Gatica MD Primary Care Provider + Esperanza Gatica MD Unavailable + Esperanza Gatica MD Unavailable + Esperanza Gatica MD Unavailable + Esperanza Gatica MD Unavailable + Jesús Orourke MD Unavailable Alfreda Ray PA-C Primary Care Provider + Alfreda Ray PA-C Unavailable +[phone] Katrin Orellana PA-C Unavailable +[phone] Shanna Vang PA-C Unavailable +[phone] Fransisco Eddy MD Unavailable +[phone] Esperanza Gatica MD Unavailable + Esperanza Gatica MD Unavailable + Katrin Orellana PA-C Unavailable +[phone] Cristina Hsieh [facility] Unavailable +[phone] Alfreda Ray PA-C Unavailable Alfreda Ray PA-C Unavailable +[phone] Cristina Hsieh [facility] Unavailable +[phone] Dakota Tatum MD Unavailable [phone] Dakota Tatum MD Unavailable [phone] Srinivas Marie DO Unavailable [phone] Reason for Visit * Reason Comments Medication Refill Encounter Details Date Type Department Care Team (Late st Contact Info) Description 11/02/[address], [address] [place] [address] [place] [address] [place] [place], [place] [id number] Medication Refill Social History Tobacco Use Types [...] Assigned at Female 08/17/2018 7:56 AM CEMENT MASON MAINTENANCE Legal Sex Female 4:24 AM CEMENT MASON MAINTENANCE Gender Identity Female 08/17/2018 7:56 AM CEMENT MASON MAINTENANCE Sexual Orientation Straight 08/17/2018 7: 56 AM CEMENT MASON MAINTENANCE documented as of this encounter Miscellaneous Notes * Telephone Encounter - Essence Meyer RN - 11/02/2019 10:08 AM CDT Prescription approved per [facility], [facility] or [facility] refill protocol. Essence Rodney - Registered Nurse [facility] Acute [facility] Diagnostic Services documented in this encounter Plan of Treatment Upcoming Encounters Date Type Department Care Team (Late st Contact Info) Description 09/07/2024 10:00 AM CDT Office Visit [facility] [place] [address] [facility] 200 [place] [phone] Fransisco Eddy MD 515 [facility] 88 [place] [address] 09/18/2024 2:00 PM CDT Virtual Visit [facility] [address] [place] [address] 105 [place] [phone] Shanna Vang PA-C [address] [place] [address] 264664 03/29/2025 3:40 PM CDT Office Visit [address] [address] Alfreda Ray PA-C [address] [place] [address] documented as of this encounter Visit Diagnoses Diagnosis Insomnia, unspecified type documented in this encounter Additional Health Concerns Infection Onset Date Last Indicated Resolved Time Rule Out COVID-19 05/08/2021 05/08/2021 05/09/2021 9:08 PM CEMENT MASON MAINTENANCE Assessment Noted Time PHQ-9 Depression Total Score: 1 08/20/19 19 1:44 PM CEMENT MASON MAINTENANCE documented as of this encounter Care Teams Rail Operator Relationship Specialty Start Date End Date Esperanza Gatica MD PCP - General Family Practice 10/13/11 12/29/21 Alfreda Ray PA-C [address] [place] [address] PCP - General Family Medicine 12/30/21 [place] [address] [place] GARCIA [address] Assigned PCP 10/01/19 03/02/20 [place] [address] [place] [address] Assigned PCP 03/03/20 05/25/20 [place] [address] [place] [address] Assigned PCP 05/26/20 09/28/20 [place] [address] [place] [address] Assigned PCP 09/29/20 07/31/22 Jesú[place] [address] [place] [address] Assigned Musculoskeletal Provider 10/20/20 04/17/22 Alfreda Ray PA-C [address] [place] [address] 155512 Referring Physician Family Medicine 12/31/21 Katrin Orellana PA-C [address] [place] [address] 98 [place] [address] Physician District Recruiter Dermatology 12/31/21 Shanna Vang PA-C [address] [address] Assigned Cancer Care Provider 01/10/22 Fransisco Eddy MD [address] [place] [address] Assigned Rheumatology Provider 05/09/22 [place] [address] [place] [address] Assigned Pain Medication Provider 06/29/22 09/04/22 [place] [address] [place] [address] Assigned PCP 08/15/22 08/28/22 Katrin Orellnaa PA-C [address] [place] [address] Assigned Surgical Provider 08/15/22 02/10/24 Cristina Hsieh [facility] 3305 [facility] L[place]BETH HERNANDEZ [address] Pharmacist Pharmacist 09/07/22 Alfreda Ray PA-C [address] [place] [address] Assigned Pain Medication Provider 09/05/22 09/10/23 Alfreda Ray PA-C [address] [place] [address] Assigned PCP 08/29/22 Cristina Hsieh [facility] [address] [address] Assigned MTM Pharmacist 09/26/22 Dakota Tatum MD 516 [place] [address] Cardiovascular Disease 03/25/23 Dakota Tatum MD 6 [place] [address] Assigned Heart and Vascular Provider 05/01/23 [place] [address] [address], [address] [address] Assigned Musculoskeletal Provider 04/12/24 documented as of this encounter
--- OUTSIDE RECORDS SUMMARY | 2024-07-28 12:46 | XMS_ITS | Encounter Summary ---
Author Organization [facility] Address [address] [place] [address] Care Team Providers Care Beater Engineer Name Role Phone Esperanza Gatica MD Primary Care Provider + Esperanza Gatica MD Unavailable +[phone] Esperanza Gatica MD Unavailable +[phone] Esperanza Gatica MD Unavailable +[phone] Esperanza Gatica MD Unavailable +361 Esperanza Gatica MD Unavailable +[phone] Esperanza Gatica MD Unavailable +[phone] Jesús Orourek MD Unavailable Alfreda RayC Primary Care Provider + Alfreda Ray PA-C Unavailable + [phone] Katrin Orellana PA-C Unavailable [phone] Shanna VangC Unavailable +[phone] Fransisco Eddy MD Unavailable +[phone] Esperanza Gatica MD Unavailable +[phone] Esperanza Gatica MD Unavailable +[phone] Katrin Orellana PA-C Unavailable Cristina Hsieh [facility] Unavailable Alfreda Ray Alexa KING Unavailable +[phone] Alfreda Ray Alexa KING Unavailable [phone] Cristina Hsieh [facility] Unavailable Dakota Tatum MD Unavailable Dakota Tatum MD Unavailable Srinivas Marie DO Unavailable [phone] Reason for Visit * Reason Onset Date Comments Imm/Inj 08/19/2018 Shingrix Encounter Details Date Type Department Care Team (Late st Contact Info) Description 08/19/2018 MyC Medical Advice [place] [address] [facility], [address] [place] [address] [place] [address] [place] [address] Imm/Inj (Shingrix) Social History Tobacco [...] Sex Assigned at Female 08/17/2018 7:56 AM YARD WAREHOUSE WORKER Legal Sex Female 4:24 AM YARD WAREHOUSE WORKER Gender Identity Female 08/17/2018 7:56 AM YARD WAREHOUSE WORKER Sexual Orientation Straight 08/17/2018 7: 56 AM YARD WAREHOUSE WORKER documented as of this encounter Plan of Treatment Upcoming Encounters Date Type Department Care Team (Late st Contact Info) Description 09/07/2024 10:00 AM CDT Office Visit [address] 200 [place] [address] Fransisco Eddy MD [address] [place] [address] 09/18/2024 2:00 PM CDT Virtual Visit [facility] [address] [facility] [address] [place] [address] Shanna Vang PA-C [address] [place] [address] 03/29/2025 3:40 PM CDT Office Visit [address] [phone] Alfreda Ray PA-C [address] [place] [address] documented as of this encounter Visit Diagnoses Not on filedocumented in this encounter Additional Health Concerns Infection Onset Date Last Indicated Resolved Time Rule Out COVID-19 05/08/2021 05/08/2021 05/09/2021 9:08 PM YARD WAREHOUSE WORKER Assessment Noted Time PHQ-9 Depression Total Score: 1 08/20/19 19 1:44 PM YARD WAREHOUSE WORKER documented as of this encounter Care Teams Beater Engineer Relationship Specialty Start Date End Date Esperanza Gatica MD PCP - General Family Practice 10/13/11 12/29/21 [place] [address] [place] [address] PCP - Assigned PCP 12/05/17 08/23/18 Alfreda Ray PA-C [address] [place] [address] PCP - General Family Medicine 12/30/21 [place] [address] [place] [address] Assigned PCP 12/05/17 09/30/19 [place] [address] [place] [address] Assigned PCP 10/01/19 03/02/20 [place] [address] [place] [address] Assigned PCP 03/03/20 05/25/20 [place] [address] [place] [address] Assigned PCP 05/26/20 09/28/20 [place] [address] [place] [address] Assigned PCP 09/29/20 07/31/22 Jesú[place] [address] [place] [address] Assigned Musculoskeletal Provider 10/20/20 04/17/22 Alfreda Ray PA-C [address] [place] [address] 797062 Referring Physician Family Medicine 12/31/21 Katrin Orellana PA-C [address] [address] Physician Collision Repairer Dermatology 12/31/21 Shanna Vang PA-C [address] [place] [address] Assigned Cancer Care Provider 01/10/22 Fransisco Eddy MD [address] [place] [address] 88 [place] [address] Assigned Rheumatology Provider 05/09/22 [place] [address] [place] [address] Assigned Pain Medication Provider 06/29/22 09/04/22 [place] [address] [place] [address] Assigned PCP 08/15/22 08/28/22 Katrin Orellana PA-C [address] [place] [address] 98 [place], [place] 561665 Assigned Surgical Provider 08/15/22 02/10/24 Cristina Hsieh [facility] 3305 [facility] L[place]BETH HERNANDEZ [address] Pharmacist Pharmacist 09/07/22 Alfreda Ray PA-C [address] [place] [address] 793982 Assigned Pain Medication Provider 09/05/22 09/10/23 Alfreda Ray PA-C [address] [place] [address] Assigned PCP 08/29/22 Cristina Hsieh, [facility] 1600 [facility] 101 [place] [address] Assigned MTM Pharmacist 09/26/22 Dakota Tatum MD [address] [place] [address] 859545 Cardiovascular Disease 03/25/23 Dakota Tatum MD [address] [place] [address] 636335 Assigned Heart and Vascular Provider 05/01/23 [place] [address] [address], [facility] [address] [place] [address] Assigned Musculoskeletal Provider 04/12/24 documented as of this encounter
--- OUTSIDE RECORDS SUMMARY | 2024-07-28 12:46 | XMS_ITS | Encounter Summary ---
Author Organization [facility] Address [address] [place] [address] Care Team Providers Care Doormaker Name Role Phone Esperanza Gatica MD Primary Care Provider + Espreanza Gatica MD Unavailable +[phone] Esperanza Gatica MD Unavailable +[phone] Esperanza Gatica MD Unavailable +304 Esperanza Gatica MD Unavailable +[phone] Esperanza Gatica MD Unavailable +[phone] Esperanza Gatica MD Unavailable +[phone] Jesús Orourke MD Unavailable Alfreda RayC Primary Care Provider + Alfreda Ray PA-C Unavailable + [phone] Katrin Orellana PA-C Unavailable [phone] Shanna VangC Unavailable +[phone] Fransisco Eddy MD Unavailable +[phone] Esperanza Gatica MD Unavailable +[phone] Esperanza Gatica MD Unavailable +[phone] Katrin Orellana PA-C Unavailable [phone] Cristina Hsieh [facility] Unavailable Alfreda Ray PA-C Unavailable +[phone] Ray, Alfreda Liu PA-C Unavailable +[phone] Cristina Hsieh [facility] Unavailable Dakota Tatum MD Unavailable Dakota Tatum MD Unavailable [phone] Srinivas Marie DO Unavailable [phone] Reason for Visit * Reason Onset Date Comments Refill Request 01/19/2012 Ambien Encounter Details Date Type Department Care Team (Late st Contact Info) Description 01/19/2012 MyC Refill [address] [address] [place] [address] [place] [address] Refill Request (Ambien) Social History Tobacco Use Types Packs/Day Years Used Date Smoking Tobacco: Former Cigarettes Q uit: 06/21/1973 Smokeless Tobacco: Former Alcohol Use Standard Drinks/Week Comments Yes 0 (1 standard drink = 0.6 oz pur e alcohol) rarely Comments No Sex and Gender Information Value Date Recorded Sex Assigned at Female 08/17/2018 7:56 AM DEMURRAGE AGENT Legal Sex Female 4:24 AM DEMURRAGE AGENT Gender Identity Female 08/17/2018 7:56 AM DEMURRAGE AGENT Sexual Orientation Straight 08/17/2018 7: 56 AM DEMURRAGE AGENT documented as of this encounter Miscellaneous Notes * Telephone Encounter - Leigha Rinaldi - 01/19/2012 9:34 AM CDT Med: Ambien Last OV: 12/28/2011 Reason: Osteoarthritis Provider: Dr. Gatica Last filled: 10/13/2011 #90 Leigha Rinaldi RN * Telephone Encounter - Leigha Rinaldi - 01/19/2012 9:21 AM CDTMessage from MyChart: Original authorizing provider: Esperanza Gatica MD Alexandria Fregoso Leeann would like a refill of the following medications: zolpidem (AMBIEN) 10 MG tablet [Esperanza Gatica MD] Preferred pharmacy: [facility] Comment: Sent from my iPhone documented in this encounter Plan of Treatment Upcoming Encounters Date Type Department Care Team (Late st Contact Info) Description 09/07/2024 10:00 AM CDT Office Visit [facility] [address] [place] [address] 200 [place] [address] Fransisco Eddy MD [address] [place] [address] 88 [place] [address] 09/18/2024 2:00 PM CDT Virtual Visit [facility] [address] 105 [place] [address] Shanna Vang PARobinson [address] [phone] 03/29/2025 3:40 PM CDT Office Visit [address] [phone] Alfreda Ray PA-C [address] [place] [address] documented as of this encounter Visit Diagnoses Diagnosis Insomnia, unspecified documented in this encounter Additional Health Concerns Infection Onset Date Last Indicated Resolved Time Rule Out COVID-19 05/08/2021 05/08/2021 05/09/2021 9:08 PM DEMURRAGE AGENT documented as of this encounter Care Teams Doormaker Relationship Specialty Start Date End Date Esperanza Gatica MD PCP - General Family Practice 10/13/11 12/29/21 [place] [address] [place] [address] PCP - Assigned PCP 12/05/17 08/23/18 Alfreda Ray PA-C [address] [place] [address] PCP - General Family Medicine 12/30/21 [place] [address] [address] [place], LISBETH [address] Assigned PCP 12/05/17 09/30/19 [place] [address] [address] [place], LISBETH [address] Assigned PCP 10/01/19 03/02/20 [place] [address] [address] [place], LISBETH [address] Assigned PCP 03/03/20 05/25/20 [place] [address] [address] GARCIA [address] Assigned PCP 05/26/20 09/28/20 [place] [address] [address] GARCIA [address] Assigned PCP 09/29/20 07/31/22 [place] [address] [place] GALAN [address] Assigned Musculoskeletal Provider 10/20/20 04/17/22 Alfreda Ray PA-C [address] [place] [address] 288202 Referring Physician Family Medicine 12/31/21 Katrin Orellana PA-C [address] [place] [address] 684795 Physician Law Clerk Dermatology 12/31/21 Shanna Vang PA-C [address] [place] [address] Assigned Cancer Care Provider 01/10/22 Fransisco Eddy MD [address] [place] [address] 318725 Assigned Rheumatology Provider 05/09/22 [place] [address] [place] [address] Assigned Pain Medication Provider 06/29/22 09/04/22 [place] [address] [place] [address] Assigned PCP 08/15/22 08/28/22 Katrin Orellana PA-C [address] [place] [address] 253635 Assigned Surgical Provider 08/15/22 02/10/24 Cristina Hsieh [facility] [address] [place] [address] [place] [address] Pharmacist Pharmacist 09/07/22 Alfreda Ray PA-C [address] [place] [address] Assigned Pain Medication Provider 09/05/22 09/10/23 Alfreda Ray PA-C [address] [place] [address] Assigned PCP 08/29/22 Cristina Hsieh, [facility] [address] [place] [address] Assigned MTM Pharmacist 09/26/22 Dakota Tatum MD [address] [place] [address] Cardiovascular Disease 03/25/23 Dakota Tatum MD [address] [place] [address] Assigned Heart and Vascular Provider 05/01/23 [place] [address] [place] , [address] [address] Assigned Musculoskeletal Provider 04/12/24 documented as of this encounter
--- OUTSIDE RECORDS SUMMARY | 2024-07-28 12:46 | XMS_ITS | Encounter Summary ---
Author Organization [place] Address [address] [place] [address] Care Team Providers Care Shellacker Name Role Phone Esperanza Gatica MD Primary Care Provider + Esperanza Gatica MD Unavailable +[phone] Esperanza Gatica MD Unavailable +249 Esperanza Gatica MD Unavailable +862 Esperanza Gatica MD Unavailable +[phone] Esperanza Gatica MD Unavailable +[phone] Esperanza Gatica MD Unavailable +[phone] Jesús Orourke MD Unavailable Alfreda RayC Primary Care Provider + Alfreda Ray PA-C Unavailable + [phone] Katrin Orellana PA-C Unavailable [phone] Shanna VangC Unavailable +[phone] Fransisco Eddy MD Unavailable +[phone] Esperanza Gatica MD Unavailable +[phone] Esperanza Gatica MD Unavailable +[phone] Katrin Orellana PA-C Unavailable [phone] Cristina Hsieh [facility] Unavailable Alfreda Ray PA-C Unavailable Cory Alfreda Liu PA-C Unavailable +[phone] Cristina Hsieh [facility] Unavailable Dakota Tatum MD Unavailable Dakota Tatum MD Unavailable [phone] Srinivas Marie DO Unavailable [phone] Encounter Details Date Type Department Care Team (Late st Contact Info) Description 06/22/2012 MyC Medical Advice [address], [facility] 100 [place] [address] [facility] Social History Tobacco Use Types Packs/Day Years Used Date Smoking Tobacco: Former Cigarettes Q uit: 06/21/1973 Smokeless Tobacco: Former Alcohol Use Standard Drinks/Week Comments Yes 0 (1 standard drink = 0.6 oz pur e alcohol) rarely Comments No Sex and Gender Information Value Date Recorded Sex Assigned at Female 08/17/2018 7:56 AM AMPLIFIER MECHANIC Legal Sex Female 4:24 AM AMPLIFIER MECHANIC Gender Identity Female 08/17/2018 7:56 AM AMPLIFIER MECHANIC Sexual Orientation Straight 08/17/2018 7: 56 AM AMPLIFIER MECHANIC documented as of this encounter Plan of Treatment Upcoming Encounters Date Type Department Care Team (Late Contact Info) Description 09/07/2024 10:00 AM CDT Office Visit [facility] [address] [address] Fransisco Eddy MD [address] [place] [address] 09/18/2024 2:00 PM CDT Virtual Visit [facility] [place] [address] Shanna Vang PA-C [facility] [address] 03/29/2025 3:40 PM CDT Office Visit [address] [address] Alfreda Ray PA-C [address] [place] [address] documented as of this encounter Visit Diagnoses Not on filedocumented in this encounter Additional Health Concerns Infection Onset Date Last Indicated Resolved Time Rule Out COVID-19 05/08/2021 05/08/2021 05/09/2021 9:08 PM AMPLIFIER MECHANIC documented as of this encounter Care Teams Shellacker Relationship Specialty Start Date End Date Esperanza Gatica MD PCP - General Family Practice 10/13/11 12/29/21 [place] [address] [place] GARCIA [address] PCP - Assigned PCP 12/05/17 08/23/18 Alfreda Ray PA-C [address] [place] [address] PCP - General Family Medicine 12/30/21 [place] [address] LISB[place] GARCIA [address] Assigned PCP 12/05/17 09/30/19 [place] [address] [place] GARCIA [address] Assigned PCP 10/01/19 03/02/20 [place] [address] [place] [address] Assigned PCP 03/03/20 05/25/20 [place] [address] [place] [address] Assigned PCP 05/26/20 09/28/20 [place] [address] 8192068 Assigned PCP 09/29/20 07/31/22 [place] [address] [place] [address] Assigned Musculoskeletal Provider 10/20/20 04/17/22 Alfreda Ray PA-C [address] [place] [address] 312722 Referring Physician Family Medicine 12/31/21 Katrin Orellana PA-C [address] [place] [address] 379645 Physician Public Health Policy Analyst Dermatology 12/31/21 Shanna Vang PA-C [address] [place] [place] [address] 519714 Assigned Cancer Care Provider 01/10/22 Fransisco Eddy MD [address] [place] [address] 204465 Assigned Rheumatology Provider 05/09/22 [place] [address] [place] [address] Assigned Pain Medication Provider 06/29/22 09/04/22 [place] [address] [place] [address] Assigned PCP 08/15/22 08/28/22 Katrin Orellana PA-C [address] [place] [address] 98 [place], [place] 981785 Assigned Surgical Provider 08/15/22 02/10/24 Cristina Hsieh [facility] 3305 [facility] L[place]BETH HERNANDEZ [address] Pharmacist Pharmacist 09/07/22 Alfreda Ray PA-C [address] [place] [address] [phone] Assigned Pain Medication Provider 09/05/22 09/10/23 Alfreda Ray PA-C [address] [place] [address] Assigned PCP 08/29/22 Cristina Hsieh [facility] [address] [id number] Assigned MTM Pharmacist 09/26/22 Dakota Tatum MD 516 [place] [address] Cardiovascular Disease 03/25/23 Dakota Tatum MD 6 [place], [place] 446655 Assigned Heart and Vascular Provider 05/01/23 [place] [address] [address], [address] 843717 Assigned Musculoskeletal Provider 04/12/24 documented as of this encounter
--- OUTSIDE RECORDS SUMMARY | 2024-07-28 12:46 | XMS_ITS | Encounter Summary ---
Author Organization [place] Address [address] [place] [address] Care Team Providers Care Health Management Consultant Name Role Phone Esperanza Gatica MD Primary Care Provider + Espreanza Gatica MD Unavailable + Esperanza Gatica MD Unavailable + Esperanza Gatica MD Unavailable + Esperanza Gatica MD Unavailable + Esperanza Gatica MD Unavailable + Jesús Orourke MD Unavailable Alfreda Ray-C Primary Care Provider + Alfreda Ray-C Unavailable + [phone] Katrin OrellanaC Unavailable +[phone] Shanna Vang-C Unavailable +[phone] Fransisco Eddy MD Unavailable +[phone] Esperanza Gatica MD Unavailable + Esperanza Gatica MD Unavailable + Katrin OrellanaC Unavailable +[phone] Cristina Hsieh [facility] Unavailable +[phone] Ray, Alfreda Liu PA-C Unavailable +[phone] Ray, Alfreda Liu PA-C Unavailable +[phone] Cristina Hsieh [facility] Unavailable +[phone] Dakota Tatum MD Unavailable +[phone] Dakota Tatum MD Unavailable +[phone] Srinivas Marie DO Unavailable [phone] Reason for Visit * Reason Onset Date Comments Medication Refill 02/21/2019 atenolol (TENO RMIN) 25 MG tablet Encounter Details Date Type Department Care Team (Late st Contact Info) Description 02/18/[address], [address] [place] [address] [place] [address] [place] [address] Medication Refill (atenolol (TENORMIN) 25 [...] Sex Assigned at Female 08/17/2018 7:56 AM SINTERING PLANT SUPERVISOR Legal Sex Female 4:24 AM SINTERING PLANT SUPERVISOR Gender Identity Female 08/17/2018 7:56 AM SINTERING PLANT SUPERVISOR Sexual Orientation Straight 08/17/2018 7: 56 AM SINTERING PLANT SUPERVISOR documented as of this encounter Miscellaneous Notes * Telephone Encounter - Yamile Otero RN - 02/22/2019 9:45 AM CDT Images from the original note were not included. Provider filled on 02/21/2019 Vandana Otero RN Patient Care Road Supervisor [facility] [phone] * Telephone Encounter - Diya Stone - [...] CDT Office Visit with Esperanza Gatica MD [facility] [address] [place] [address], [facility] [address] [facility] [address] Beta-Blockers Protocol Passed - 02/18/2019 [...] 09/07/2024 10:00 AM CDT Office Visit [address] 200 [place] [address] Fransisco Eddy MD [address] [place] [address] 09/18/2024 2:00 PM CDT Virtual Visit [facility] [address] [facility] [address] [place] [address] Shanna Vang PA-C [address] [place] [address] 03/29/2025 3:40 PM CDT Office Visit [facility] [address] [place] [phone] Alfreda Ray PA-C [address] [place] [address] 988532 documented as of this encounter Visit Diagnoses Diagnosis HTN, goal below 140/90 Unspecified essential hypertension documented in this encounter Additional Health Concerns Infection Onset Date Last Indicated Resolved Time Rule Out COVID-19 05/08/2021 05/08/2021 05/09/2021 9:08 PM SINTERING PLANT SUPERVISOR Assessment Noted Time PHQ-9 Depression Total Score: 1 08/20/19 19 1:44 PM SINTERING PLANT SUPERVISOR documented as of this encounter Care Teams Health Management Consultant Relationship Specialty Start Date End Date Esperanza Gatica MD PCP - General Family Practice 10/13/11 12/29/21 Alfreda Ray PA-C [address] [place] [address] [phone] PCP - General Family Medicine 12/30/21 [place] [address] [place] [address] Assigned PCP 12/05/17 09/30/19 [place] [address] [place] [address] Assigned PCP 10/01/19 03/02/20 [place] [address] [place] [address] Assigned PCP 03/03/20 05/25/20 [place] [address] [place] [address] Assigned PCP 05/26/20 09/28/20 [place] [address] [place] [address] Assigned PCP 09/29/20 07/31/22 Jesú[place] [address] [place] [address] Assigned Musculoskeletal Provider 10/20/20 04/17/22 Alfreda Ray PA-C [address] [place] [address] 998872 Referring Physician Family Medicine 12/31/21 Katrin Orellana PA-C [address] [place] [address] 98 [place], [place] [phone] Physician Online Activist Dermatology 12/31/21 Shanna Vang PA-C [address] [place] [address] 015934 Assigned Cancer Care Provider 01/10/22 Fransisco Eddy MD [address] [place] [address] 88 [place] [address] Assigned Rheumatology Provider 05/09/22 [place] [address] [place] [address] Assigned Pain Medication Provider 06/29/22 09/04/22 [place] [address] [address] ANTONIOGUDELIA VANIAJennifer [facility] [place] [address] Assigned PCP 08/15/22 08/28/22 Katrin Orellana PA-C [address] [place] [address] Assigned Surgical Provider 08/15/22 02/10/24 Cristina Hsieh [facility] [address] [facility] [place] [address] Pharmacist Pharmacist 09/07/22 Alfreda Ray PA-C [address] [place] [address] Assigned Pain Medication Provider 09/05/22 09/10/23 Alfreda Ray PA-C [address] [place] [address] Assigned PCP 08/29/22 Cristina Hsieh [facility] [address] [address] Assigned MTM Pharmacist 09/26/22 Dakota Tatum MD 6 [place] [address] Cardiovascular Disease 03/25/23 Dakota Tatum MD [address] [place] [address] Assigned Heart and Vascular Provider 05/01/23 [place] [address] [address], [address] [address] Assigned Musculoskeletal Provider 04/12/24 documented as of this encounter
--- OUTSIDE RECORDS SUMMARY | 2024-07-28 12:46 | XMS_ITS | Encounter Summary ---
Author Organization [place] Address [address] [place] [address] Care Team Providers Care Drop Wire Aliner Name Role Phone Esperanza Gatica MD Primary Care Provider + Esperanza Gatica MD Unavailable +[phone] Esperanza Gatica MD Unavailable +[phone] Esperanza Gatica MD Unavailable +780 Esperanza Gatica MD Unavailable +[phone] Esperanza Gatica MD Unavailable +[phone] Esperanza Gatica MD Unavailable +[phone] Jesús Orourke MD Unavailable Alfreda RayC Primary Care Provider + Alfreda Ray PA-C Unavailable + [phone] Katrin Orellana PA-C Unavailable [phone] Shanna VangC Unavailable +[phone] Fransisco Eddy MD Unavailable [phone] Esperanza Gatica MD Unavailable +[phone] Esperanza Gatica MD Unavailable +[phone] Katrin Orellana PA-C Unavailable Cristina Hsieh [facility] Unavailable Cory Alfreda Liu PA-C Unavailable +[phone] Alfreda Ray Alexa KING Unavailable +[phone] Cristina Hsieh [facility] Unavailable [phone] Dakota Tatum MD Unavailable Dakota Tatum MD Unavailable [phone] Srinivas Marie DO Unavailable [phone] Reason for Visit * Reason Onset Date Comments Refill Request 02/06/2012 Ultram Encounter Details Date Type Department Care Team (Late st Contact Info) Description 02/06/2012 MyC [facility] [address] [place] [address], [address] [place] [address] [place] [address] [place] [address] Refill Request (Ultram ) Social History Tobacco Use Types Packs/Day Years Used Date Smoking Tobacco: Former Cigarettes Q uit: 06/21/1973 Smokeless Tobacco: Former Alcohol Use Standard Drinks/Week Comments Yes 0 (1 standard drink = 0.6 oz pur e alcohol) rarely Comments No Sex and Gender Information Value Date Recorded Sex Assigned at Female 08/17/2018 7:56 AM CONSTRUCTION REP Legal Sex Female 4:24 AM CONSTRUCTION REP Gender Identity Female 08/17/2018 7:56 AM CONSTRUCTION REP Sexual Orientation Straight 08/17/2018 7: 56 AM CONSTRUCTION REP documented as of this encounter Miscellaneous Notes * Telephone Encounter - Leigha Rinaldi - 02/08/2012 8:03 AM CD[facility] Original authorizing provider: MD Alexandria Brannon would like a refill of the following medications: traMADol (ULTRAM) 50 MG tablet [Esperanza Gatica MD] Preferred pharmacy: [facility] Comment: Sent from my iPad documented in this encounter Plan of Treatment Upcoming Encounters Date Type Department Care Team (Late st Contact Info) Description 09/07/2024 10:00 AM CDT Office Visit [facility] [place] [address] [facility] 200 [place] [phone] Fransisco Eddy MD [address] [facility] 88 [place] [address] 09/18/2024 2:00 PM CDT Virtual Visit [facility] [address] [place] [address] 105 [place] [phone] Shanna Vang PARobinson [address] [place] [address] 03/29/2025 3:40 PM CDT Office Visit [address] [place] [address] Alfreda Ray PA-C [address] [place] [address] [phone] documented as of this encounter Visit Diagnoses Diagnosis Knee pain Pain in joint, lower leg documented in this encounter Additional Health Concerns Infection Onset Date Last Indicated Resolved Time Rule Out COVID-19 05/08/2021 05/08/2021 05/09/2021 9:08 PM CONSTRUCTION REP documented as of this encounter Care Teams Drop Wire Aliner Relationship Specialty Start Date End Date Esperanza Gatica MD PCP - General Family Practice 10/13/11 12/29/21 [place] [address] [place] [address] PCP - Assigned PCP 12/05/17 08/23/18 Alfreda aRy PA-C [address] [place] [address] PCP - General Family Medicine 12/30/21 [place] [address] [place] [address] Assigned PCP 12/05/17 09/30/19 [place] [address] [place] [address] Assigned PCP 10/01/19 03/02/20 [place] [address] [place] [address] Assigned PCP 03/03/20 05/25/20 [place] [address] [place] [address] Assigned PCP 05/26/20 09/28/20 [place] [address] [place] [address] Assigned PCP 09/29/20 07/31/22 Jesú[place] [address] [place] [address] Assigned Musculoskeletal Provider 10/20/20 04/17/22 Alfreda Ray PA-C [address] [place] [address] Referring Physician Family Medicine 12/31/21 Katrin Orellana PA-C [address] [address] Physician Cigarette Paper Tester Dermatology 12/31/21 Shanna Vang PA-C [address] [place] [address] 844574 Assigned Cancer Care Provider 01/10/22 Fransisco Eddy MD [address] [place] [address] 507955 Assigned Rheumatology Provider 05/09/22 [place] [address] [place] [address] Assigned Pain Medication Provider 06/29/22 09/04/22 [place] [address] [place] [address] Assigned PCP 08/15/22 08/28/22 Katrin Orellana PA-C [address] [place] [address] 098505 Assigned Surgical Provider 08/15/22 02/10/24 Cristina Hsieh [facility] [address] [facility] [place] [address] Pharmacist Pharmacist 09/07/22 Alfreda Ray PA-C [address] [place] [address] Assigned Pain Medication Provider 09/05/22 09/10/23 Alfreda Ray PA-C [address] [place] [address] 331212 Assigned PCP 08/29/22 Cristina Hsieh, [facility] [address] [place] [address] Assigned MTM Pharmacist 09/26/22 Dakota Tatum MD [address] [place] [address] [phone] Cardiovascular Disease 03/25/23 Dakota Tatum MD [address] [place] [address] Assigned Heart and Vascular Provider 05/01/23 [place] [address] [address], [address] [address] Assigned Musculoskeletal Provider 04/12/24 documented as of this encounter
--- OUTSIDE RECORDS SUMMARY | 2024-07-28 12:46 | XMS_ITS | Encounter Summary ---
Author Organization [place] Address [address] [place] [address] Care Team Providers Care Member Of The Legislative Council Name Role Phone Esperanza Gatica MD Unavailable +[phone] Alfreda Ray PA-C Primary Care Provider + Alfreda Ray PA-C Unavailable +[phone] Katrin Orellana PA-C Unavailable +[phone] Shanna Vang PA-C Unavailable +[phone] Fransisco Eddy MD Unavailable +[phone] Esperanza Gatica MD Unavailable +[phone] Esperanza Gatica MD Unavailable +[phone] Katrin Orellana PA-C Unavailable +[phone] Cristina Hsieh [facility] Unavailable +- [phone] Alfreda Ray PA-C Unavailable +[phone] Alfreda Ray PA-C Unavailable +260 Cristina Hsieh [facility] Unavailable +[phone] Dakota Tatum MD Unavailable + [phone] Dakota Tatum MD Unavailable + [phone] Srinivas Marie DO Unavailable [phone] Reason for Visit * Reason Onset Date Comments Medication Update 05/11/2022 Encounter Details Date Type Department Care Team (Late st Contact Info) Description 05/11/2022 Telephone [facility] [address] 200 [place] [address] Fransisco Eddy MD [address] [place] [address] Medication Update Social History Tobacco Use [...] Sex Assigned at Female 08/17/2018 7:56 AM EMPLOYEE RELATIONS SPECIALIST Legal Sex Female 4:24 AM EMPLOYEE RELATIONS SPECIALIST Gender Identity Female 08/17/2018 7:56 AM EMPLOYEE RELATIONS SPECIALIST Sexual Orientation Straight 08/17/2018 7: 56 AM EMPLOYEE RELATIONS SPECIALIST COVID-19 Exposure Response Date Recorded In the last 10 days, have yo u been in contact with someone who was confirmed or suspected to have Coronavirus/COVID-19? No / Unsure 05/06/2022 9:52 AM EMPLOYEE RELATIONS SPECIALIST documented as of this encounter Miscellaneous Notes * Telephone Encounter - Lena Pina RN - 05/12/2022 8:03 AM CST RX's are pended for your signature. Lena Pina RN OYEE RELATIONS SPECIALIST * Telephone Encounter - Fransisco Eddy MD - 05/11/2022 6:29 PM EMPLOYEE RELATIONS SPECIALIST I am delighted to hear about the [...] these prescriptions for my review and signature. OYEE RELATIONS SPECIALIST * Telephone Encounter - Lena Pina RN - 05/11/2022 12:53 PM EMPLOYEE RELATIONS SPECIALIST Patient calling with follow up to 04/23 [...] Please advise. Thank you. Lena Pina RN OYEE RELATIONS SPECIALIST * Telephone Encounter - HamptonViktoria - 05/11/2022 11:33 AM CST [facility] Call Center Phone Message May a detailed message be left on voicemail: yes; please call home # Reason for Call: Medication Question or concern regarding medication Prescription Clarification Name of Medication: Prednisone Prescribing Provider: Dr. Eddy Pharmacy: [facility] in [place], [place] What on the order needs clarification? [...] Taken: Message routed to: Other: CS Rheumatology OYEE RELATIONS SPECIALIST documented in this encounter Plan of Treatment Upcoming Encounters Date Type Department Care Team (Late st Contact Info) Description 09/07/2024 10:00 AM CDT Office Visit [facility] [address] 200 [place] [address] Fransisco Eddy MD [address] [place] [address] 88 [place], [place] [phone] 09/18/2024 2:00 PM CDT Virtual Visit [facility] [address] 105 [place] [address] Shanna Vang PA-C [address] [address] 03/29/2025 3:40 PM CDT Office Visit [address] [place] [address] Alfreda Ray PA-C [address] [place] [address] 632572 documented as of this encounter Visit Diagnoses Diagnosis Inflammatory arthritis- Primary Unspecified inflammatory polyarthropathy documented in this encounter Additional Health Concerns Assessment Noted Time PHQ-9 Depression Total Score: 4 09/05/19 22 10:39 AM CDT documented as of this encounter Care Teams Member Of The Legislative Council Relationship Specialty Start Date End Date Alfreda Ray PA-C [address] [place] [address] [phone] PCP - General Family Medicine 12/30/21 [place] [address] [place] [place] [address] Assigned PCP 09/29/20 07/31/22 Alfreda Ray PA-C [address] [place] [address] 182902 Referring Physician Family Medicine 12/31/21 Katrin Orellana PA-C [address] [place] [address] 776105 Physician Stem Dryer Maintainer Dermatology 12/31/21 Shanna Vang PA-C [address] [place] [address] 543654 Assigned Cancer Care Provider 01/10/22 Fransisco Eddy MD [address] [place] [address] [phone] Assigned Rheumatology Provider 05/09/22 [place] [address] [place] [place] [address] Assigned Pain Medication Provider 06/29/22 09/04/22 [place] [address] [place] [place] [address] Assigned PCP 08/15/22 08/28/22 Katrin Orellana PA-C [address] [place] [address] 852165 Assigned Surgical Provider 08/15/22 02/10/24 Cristina Hsieh [facility] [address] [facility] [place] [address] Pharmacist Pharmacist 09/07/22 Alfreda Ray PA-C [address] [place] [address] 555942 Assigned Pain Medication Provider 09/05/22 09/10/23 Alfreda Ray PA-C [address] [place] [address] 267522 Assigned PCP 08/29/22 Cristina Hsieh [facility] [address] [place] [address] Assigned MTM Pharmacist 09/26/22 Dakota Tatum MD [address] [place] [address] Cardiovascular Disease 03/25/23 Dakota Tatum MD [address] [place] [address] Assigned Heart and Vascular Provider 05/01/23 [place] [address] [place] , [address] [address] Assigned Musculoskeletal Provider 04/12/24 documented as of this encounter
--- OUTSIDE RECORDS SUMMARY | 2024-07-28 12:46 | XMS_ITS | Encounter Summary ---
Author Organization [facility] Address [address] [place] [address] Care Team Providers Care Press Operator Printing Name Role Phone Ajay Vick MD Primary Care Provider +[phone] Esperanza Gatica MD Primary Care Provider + Esperanza Gatica MD Unavailable + Esperanza Gatica MD Unavailable + Esperanza Gatica MD Unavailable + Esperanza Gatica MD Unavailable + Esperanza Gatica MD Unavailable + Esperanza Gatica MD Unavailable +[phone] Jesús Orourke MD Unavailable Alfreda RayC Primary Care Provider + Alfreda Ray-Gallito Unavailable +[phone] Katrin Orellana PA-C Unavailable Shanna Vang-C Unavailable +[phone] Fransisco Eddy MD Unavailable +[phone] Esperanza Gatica MD Unavailable +[phone] Esperanza Gatica MD Unavailable +[phone] Katrin Orellana PA-C Unavailable +[phone] Cristina Hsieh [facility] Unavailable Ho Raymustapha Liu PA-C Unavailable +[phone] Ho Raymustapha Liu PA-C Unavailable +[phone] Cristina Hsieh [facility] Unavailable +[phone] Dakota Tatum MD Unavailable +[phone] Dakota Tatum MD Unavailable +[phone] Srinivas Marie DO Unavailable [phone] Reason for Visit * Reason Onset Date Comments Refill Request 09/07/2011 Encounter Details Date Type Department Care Team (Late st Contact Info) Description 09/07/2011 MyC Refill [address] [address] Ajay Vick MD [facility] [place] [address] Refill Request Social History Tobacco Use Types Packs/Day Years Used Date Smoking Tobacco: Former Cigarettes Q uit: 06/21/1973 Smokeless Tobacco: Former Alcohol Use Standard Drinks/Week Comments Yes 0 (1 standard drink = 0.6 oz pur e alcohol) rarely Comments No Sex and Gender Information Value Date Recorded Sex Assigned at Female 08/17/2018 7:56 AM STEP DOWN NURSE Legal Sex Female 4:24 AM STEP DOWN NURSE Gender Identity Female 08/17/2018 7:56 AM STEP DOWN NURSE Sexual Orientation Straight 08/17/2018 7: 56 AM STEP DOWN NURSE documented as of this encounter Miscellaneous Notes [...] Sosa - 09/08/2011 10:39 AM [facility] Original authorizing provider: AJAY VICK MD Barbara J Pellicci would like a refill of the following medications: tramadol (ULTRAM) 50 MG tablet [AJAY VICK MD] Preferred pharmacy: [facility] Comment: documented in this encounter Plan of Treatment Upcoming Encounters Date Type Department Care Team (Late st Contact Info) Description 09/07/2024 10:00 AM CDT Office Visit [facility] [address] 200 [place] [phone] Fransisco Eddy MD [address] [place] [address] 88 [place], [place] [address]275 09/18/2024 2:00 PM CDT Virtual Visit [facility] [place] [address] 105 [place] [address] Shanna Vang, PARobinson [address] [place] [address] 03/29/2025 3:40 PM CDT Office Visit [address] [place] [phone] Alfreda Ray PA-C [address] [place] [address] [phone] documented as of this encounter Visit Diagnoses Diagnosis Knee pain Pain in joint, lower leg documented in this encounter Additional Health Concerns Infection Onset Date Last Indicated Resolved Time Rule Out COVID-19 05/08/2021 05/08/2021 05/09/2021 9:08 PM STEP DOWN NURSE documented as of this encounter Care Teams Press Operator Printing Relationship Specialty Start Date End Date Ajay Vick MD PCP - General Family Practice 01/29/11 10/12/11 Esperanza Gatica MD PCP - General Family Practice 10/13/11 12/29/21 [place] [address] [place] [address] PCP - Assigned PCP 12/05/17 08/23/18 Alfreda Ray PA-C [address] [place] [address] PCP - General Family Medicine 12/30/21 [place] [address] [place] [address] Assigned PCP 12/05/17 09/30/19 [place] [address] [place] [address] Assigned PCP 10/01/19 03/02/20 [place] [address] [place] [address] Assigned PCP 03/03/20 05/25/20 [place] [address] [place] [address] Assigned PCP 05/26/20 09/28/20 [place] [address] [place] [address] Assigned PCP 09/29/20 07/31/22 Jesú[place] [address] [place] [address] Assigned Musculoskeletal Provider 10/20/20 04/17/22 Alfreda Ray PA-C [address] [place] [address] 162712 Referring Physician Family Medicine 12/31/21 Katrin Orellana PA-C [address] [place] [address] 98 [place], [place] 096685 Physician Director Hedis Dermatology 12/31/21 Shanna Vang PA-C [address] 022494 Assigned Cancer Care Provider 01/10/22 Fransisco Eddy MD [address] [place] [address] 046405 Assigned Rheumatology Provider 05/09/22 [place] [address] [address] [address] Assigned Pain Medication Provider 06/29/22 09/04/22 [place] [address] [place] [address] Assigned PCP 08/15/22 08/28/22 Katrin Orellana PA-C [address] [facility] 98 [place] [address] Assigned Surgical Provider 08/15/22 02/10/24 Cristina Hsieh [facility] [address] [facility] [place] [address] Pharmacist Pharmacist 09/07/22 Alfreda Ray PA-C [address] [place] [address] 667532 Assigned Pain Medication Provider 09/05/22 09/10/23 Alfreda Ray PA-C [address] [place] [address] 364722 Assigned PCP 08/29/22 Cristina Hsieh, [facility] [address] [address] Assigned MTM Pharmacist 09/26/22 Dakota Tatum MD 6 [place] [address] Cardiovascular Disease 03/25/23 Dakota Tatum MD 6 [place] [address] Assigned Heart and Vascular Provider 05/01/23 [place] [address] [facility], [facility] [address] [place] [address] Assigned Musculoskeletal Provider 04/12/24 documented as of this encounter
--- OUTSIDE RECORDS SUMMARY | 2024-07-28 12:46 | XMS_ITS | Encounter Summary ---
Author Organization [facility] Address [address] [place] [address] Care Team Providers Care Finisher Fine Diamond Dies Name Role Phone Esperanza Gatica MD Primary Care Provider + Esperanza Gatica MD Unavailable + Esperanza Gatica MD Unavailable + Esperanza Gatica MD Unavailable + Esperanza Gatica MD Unavailable + Esperanza Gatica MD Unavailable + Jesús Orourke MD Unavailable Alfreda Ray-C Primary Care Provider + Alfreda Ray-C Unavailable + [phone] Katrin OrellanaC Unavailable +[phone] Shanna Vang-C Unavailable +[phone] Fransisco Eddy MD Unavailable +[phone] Esperanza Gatica MD Unavailable + Esperanza Gatica MD Unavailable + Katrin OrellanaC Unavailable +[phone] Cristina Hsieh [facility] Unavailable +[phone] Alfreda Ray PA-C Unavailable Alfreda Ray PA-C Unavailable MelissaCristina shields Martin [facility] Unavailable +[phone] Dakota Tatum MD Unavailable +[phone] Dakota Tatum MD Unavailable [phone] Srinivas Marie Unavailable [phone] Encounter Details Date Type Department Care Team (Late st Contact Info) Description 09/25/2019 MyC Medical Advice [address] [address] Edel Corrigan REEL ASSEMBLER Social History Tobacco Use Types Packs/Day Years [...] Sex Assigned at Female 08/17/2018 7:56 AM MOTOR ASSEMBLER Legal Sex Female 4:24 AM MOTOR ASSEMBLER Gender Identity Female 08/17/2018 7:56 AM MOTOR ASSEMBLER Sexual Orientation Straight 08/17/2018 7: 56 AM MOTOR ASSEMBLER documented as of this encounter Plan of Treatment Upcoming Encounters Date Type Department Care Team (Late Contact Info) Description 09/07/2024 10:00 AM CDT Office Visit [facility] [address] 200 [place] [phone] Fransisco Eddy MD [address] [place] [address] 88 [place] [address] 09/18/2024 2:00 PM CDT Virtual Visit [facility] [place] [address] 105 [place] [address] Shanna Vang PA-C [address] [place] [address] 03/29/2025 3:40 PM CDT Office Visit [address] [address] Alfreda Ray PA-C [address] [place] [address] documented as of this encounter Visit Diagnoses Not on filedocumented in this encounter Additional Health Concerns Infection Onset Date Last Indicated Resolved Time Rule Out COVID-19 05/08/2021 05/08/2021 05/09/2021 9:08 PM MOTOR ASSEMBLER Assessment Noted Time PHQ-9 Depression Total Score: 1 08/20/19 19 1:44 PM MOTOR ASSEMBLER documented as of this encounter Care Teams Finisher Fine Diamond Dies Relationship Specialty Start Date End Date Esperanza Gatica MD PCP - General Family Practice 10/13/11 12/29/21 Alfreda Ray PA-C [address] [place] [address] PCP - General Family Medicine 12/30/21 [place] [address] LISBETH GARCIA [address] Assigned PCP 12/05/17 09/30/19 [place] [address] LISBETH GARCIA 33161 Assigned PCP 10/01/19 03/02/20 [place] [address] LISBETH GARCIA 273[address] Assigned PCP 03/03/20 05/25/20 [place] [address] LISBETH GARCIA 31929 Assigned PCP 05/26/20 09/28/20 [place] [address] LISBETH GARCIA 28829 Assigned PCP 09/29/20 07/31/22 [place] [address] [facility] [place] [address] Assigned Musculoskeletal Provider 10/20/20 04/17/22 Alfreda Ray PA-C [address] [place] [address] Referring Physician Family Medicine 12/31/21 Katrin Orellana PA-C [address] [place] [address] Physician Surface Miner Dermatology 12/31/21 Shanna Vang PA-C [facility] [address] Assigned Cancer Care Provider 01/10/22 Fransisco Eddy MD [address] [place] [address] Assigned Rheumatology Provider 05/09/22 [place] [address] LISBETH GARCIA [address]16[address] Assigned Pain Medication Provider 06/29/22 09/04/22 [place] [address] [place] [address] Assigned PCP 08/15/22 08/28/22 Katrin Orellana PA-C [address] [place] [address] 13964 Assigned Surgical Provider 08/15/22 02/10/24 Cristina Hsieh RPH [address] [place] [address] [place] [address] Pharmacist Pharmacist 09/07/22 Alfreda Ray PA-C [address] [place] [address] Assigned Pain Medication Provider 09/05/22 09/10/23 Alfreda Ray PA-C [address] [place] [address] Assigned PCP 08/29/[address] [facility] [address] [place] [address] Assigned MTM Pharmacist 09/26/22 Dakota Tatum MD [address] [place] [address] [phone] Cardiovascular Disease 03/25/23 Dakota Tatum MD [address] [place] [address] 824235 Assigned Heart and Vascular Provider 05/01/23 [place] [address] CELE GASTELUM, [address] [place] [address] Assigned Musculoskeletal Provider 04/12/24 documented as of this encounter
--- OUTSIDE RECORDS SUMMARY | 2024-07-28 12:46 | XMS_ITS | Encounter Summary ---
Author Organization [facility] Address [address] [place] [address] Care Team Providers Care Director Of Safety And Security Name Role Phone Esperanza Gatica MD Primary Care Provider + Esperanza Gatica MD Unavailable +[phone] Esperanza Gatica MD Unavailable +[phone] Esperanza Gatica MD Unavailable +[phone] Esperanza Gatica MD Unavailable +[phone] Esperanza Gatica MD Unavailable +[phone] Esperanza Gatica MD Unavailable [phone] Jesús Orourke MD Unavailable Alfreda RayC Primary Care Provider + Alfreda Ray PA-C Unavailable + [phone] Katrin Orellana PA-C Unavailable [phone] Shanna VangC Unavailable +[phone] Fransisco Eddy MD Unavailable [phone] Esperanza Gatica MD Unavailable +[phone] Esperanza Gatica MD Unavailable +[phone] Katrin Orellana PA-C Unavailable Cristina Hsieh [facility] Unavailable Cory Alfreda Liu PA-C Unavailable Alfreda Ray Alexa KING Unavailable [phone] Cristina Hsieh [facility] Unavailable Dakota Tatum MD Unavailable Dakota Tatum MD Unavailable Srinivas Marie DO Unavailable [phone] Reason for Visit * Reason Onset Date Comments Refill Request 11/06/2011 Tramadol Encounter Details Date Type Department Care Team (Late st Contact Info) Description 11/06/2011 MyC Refill [address] [phone] Ajay Vick MD [address] [facility] LISBETH HERNANDEZ [phone] Refill Request (Tramadol) Social History Tobacco Use Types Packs/Day Years Used Date Smoking Tobacco: Former Cigarettes Q uit: 06/21/1973 Smokeless Tobacco: Former Alcohol Use Standard Drinks/Week Comments Yes 0 (1 standard drink = 0.6 oz pur e alcohol) rarely Comments No Sex and Gender Information Value Date Recorded Sex Assigned at Female 08/17/2018 7:56 AM WAREHOUSE SORTER Legal Sex Female 4:24 AM WAREHOUSE SORTER Gender Identity Female 08/17/2018 7:56 AM WAREHOUSE SORTER Sexual Orientation Straight 08/17/2018 7: 56 AM WAREHOUSE SORTER documented as of this encounter Miscellaneous Notes * Telephone Encounter - Leigha Rinaldi - 11/09/2011 1:16 PM CDTMessage from MyChart: Original authorizing provider: AJAY VICK MD Barbara J Pellicci would like a refill of the following medications: traMADol (ULTRAM) 50 MG tablet [AJAY VICK MD] Preferred pharmacy: [facility] Comment: I have switched to Dr. Esperanza Gatica. documented in this encounter Plan of Treatment Upcoming Encounters Date Type Department Care Team (Late st Contact Info) Description 09/07/2024 10:00 AM CDT Office Visit [facility] [place] [address] [facility] 200 [place] [phone] Fransisco Eddy MD [address] [place] [address] 88 [place] [address] 09/18/2024 2:00 PM CDT Virtual Visit [facility] [address] [place] [address] 105 [place] [address] Shanna Vang PA-C [address] [place] [address] 03/29/2025 3:40 PM CDT Office Visit [address] [place] [phone] Alfreda Ray PA-C [address] [place] [address] 969352 documented as of this encounter Visit Diagnoses Diagnosis Knee pain Pain in joint, lower leg documented in this encounter Additional Health Concerns Infection Onset Date Last Indicated Resolved Time Rule Out COVID-19 05/08/2021 05/08/2021 05/09/2021 9:08 PM WAREHOUSE SORTER documented as of this encounter Care Teams Director Of Safety And Security Relationship Specialty Start Date End Date Esperanza Gatica MD PCP - General Family Practice 10/13/11 12/29/21 [place] [address] [place] [address] PCP - Assigned PCP 12/05/17 08/23/18 Alfreda Ray PA-C [address] [place] [address] PCP - General Family Medicine 12/30/21 [place] [address] [place] [address] Assigned PCP 12/05/17 09/30/19 [place] [address] [place] [address] Assigned PCP 10/01/19 03/02/20 [place] [address] [place] [address] Assigned PCP 03/03/20 05/25/20 [place] [address] [place] [address] Assigned PCP 05/26/20 09/28/20 [place] [address] [place] [address] Assigned PCP 09/29/20 07/31/22 Jesú[place] [address] [place] L[place]BETH GALAN [address] Assigned Musculoskeletal Provider 10/20/20 04/17/22 Alfreda Ray PA-C [address] [place] [address] Referring Physician Family Medicine 12/31/21 Katrin Orellana PA-C [address] [address] Physician Gravity Prospector Dermatology 12/31/21 Shanna Vang PA-C [address] [place] [address] 932434 Assigned Cancer Care Provider 01/10/22 Fransisco Eddy MD [address] [place] [address] 677195 Assigned Rheumatology Provider 05/09/22 [place] [address] [place] [address] Assigned Pain Medication Provider 06/29/22 09/04/22 [place] [address] [place] [address] Assigned PCP 08/15/22 08/28/22 Katrin Orellana PA-C [address] [place] [address] Assigned Surgical Provider 08/15/22 02/10/[address] [facility] [address] [facility] LISBETH HERNANDEZ [address] Pharmacist Pharmacist 09/07/22 Alfreda Ray PA-C [address] [place] [address]62 Assigned Pain Medication Provider 09/05/22 09/10/23 Alfreda Ray PA-C [address] [place] [address] 748882 Assigned PCP 08/29/22 Cristina Hsieh, [facility] [address] [address] Assigned MTM Pharmacist 09/26/22 Dakota Tatum MD [address] [place] [address] 223405 Cardiovascular Disease 03/25/23 Dakota Tatum MD [address] [place] [address] 988775 Assigned Heart and Vascular Provider 05/01/23 [place] [address] [place] , [address] [address] Assigned Musculoskeletal Provider 04/12/24 documented as of this encounter
--- OUTSIDE RECORDS SUMMARY | 2024-07-28 12:46 | XMS_ITS | Encounter Summary ---
Author Organization [facility] Address [address] [place] [address] Care Team Providers Care Generation Engineer Name Role Phone Esperanza Gatica MD Primary Care Provider + Esperanza Gatica MD Unavailable + Esperanza Gatica MD Unavailable + Esperanza Gatica MD Unavailable + Esperanza Gatica MD Unavailable + Esperanza Gatica MD Unavailable + Jesús Orourke MD Unavailable Alfreda Ray-C Primary Care Provider + Alfreda Ray-C Unavailable + [phone] Katrin OrellanaC Unavailable +[phone] Shanna Vang-C Unavailable +[phone] Fransisco dEdy MD Unavailable [phone] Esperanza Gatica MD Unavailable + Esperanza Gatica MD Unavailable + Katrin OrellanaC Unavailable +[phone] Cristina Hsieh [facility] Unavailable +[phone] Alfreda Ray PA-C Unavailable Cory Alfreda Liu PA-C Unavailable Cristina Hsieh Martin [facility] Unavailable +[phone] DeeptiDakota MD Unavailable [phone] NicholDakota yousif MD Unavailable [phone] Srinivas Marie Unavailable [phone] Encounter Details Date Type Department Care Team (Late st Contact Info) Description 07/03/2019 MyC Medical Advice [address], [address] [place] [address] [place] [address] [place] [address] Social History Tobacco Use Types [...] Sex Assigned at Female 08/17/2018 7:56 AM PARK GUARD Legal Sex Female 4:24 AM PARK GUARD Gender Identity Female 08/17/2018 7:56 AM PARK GUARD Sexual Orientation Straight 08/17/2018 7: 56 AM PARK GUARD documented as of this encounter Plan of Treatment Upcoming Encounters Date Type Department Care Team (Late st Contact Info) Description 09/07/2024 10:00 AM CDT Office Visit [facility] [address] [place] [address] Fransisco Eddy MD [address] [place] [address] 09/18/2024 2:00 PM CDT Virtual Visit [facility] [address] [place] [address] 105 [place] [address] Shanna Vang PA-C [address] [place] [address] 03/29/2025 3:40 PM CDT Office Visit [address] [phone] Alfreda Ray PA-C [address] [place] [address] 967372 documented as of this encounter Visit Diagnoses Not on filedocumented in this encounter Additional Health Concerns Infection Onset Date Last Indicated Resolved Time Rule Out COVID-19 05/08/2021 05/08/2021 05/09/2021 9:08 PM PARK GUARD Assessment Noted Time PHQ-9 Depression Total Score: 1 08/20/19 19 1:44 PM PARK GUARD documented as of this encounter Care Teams Generation Engineer Relationship Specialty Start Date End Date Esperanza Gatica MD PCP - General Family Practice 10/13/11 12/29/21 Alfreda Ray PA-C [address] [place] [address] 470072 PCP - General Family Medicine 12/30/21 [place] [address] LISBETH GARCIA [address] Assigned PCP 12/05/17 09/30/19 [place] [address] LISB[address] GARCIA [address] Assigned PCP 10/01/19 03/02/20 [place] [address] [place] [address] Assigned PCP 03/03/20 05/25/20 [place] [address] [place] [address] Assigned PCP 05/26/20 09/28/20 [place] [address] [place] [address] Assigned PCP 09/29/20 07/31/22 Jesú[place] [address] [place] [address] Assigned Musculoskeletal Provider 10/20/20 04/17/22 Alfreda Ray PA-C [address] [place] [address] [phone] Referring Physician Family Medicine 12/31/21 Katrin Orellana PA-C [address] [place] [address] 348305 Physician Adult Neuropsychologist Dermatology 12/31/21 Shanna Vang PA-C [address] [place] [address] 327744 Assigned Cancer Care Provider 01/10/22 Fransisco Eddy MD [address] [place] [address] 585725 Assigned Rheumatology Provider 05/09/22 [place] [address] [place] [address] Assigned Pain Medication Provider 06/29/22 09/04/22 [place] [address] [place] [address] Assigned PCP 08/15/22 08/28/22 Katrin Orellana PA-C [address] [place] [address] 663865 Assigned Surgical Provider 08/15/22 02/10/24 Cristina Hsieh [facility] [address] [place] [address] LISBETH HERNANDEZ [address] Pharmacist Pharmacist 09/07/22 Alfreda Ray PA-C [address] [place] [address] 084282 Assigned Pain Medication Provider 09/05/22 09/10/23 Alfreda Ray PA-C [address] [place] [address] Assigned PCP 08/29/22 Cristina Hsieh [facility] [address] [phone] Assigned MTM Pharmacist 09/26/22 Dakota Tatum MD 6 [place] [address] Cardiovascular Disease 03/25/23 Dakota Tatum MD 6 [place] [address] Assigned Heart and Vascular Provider 05/01/23 [place] [address] CE[address] GASTELUM, [address] [address] Assigned Musculoskeletal Provider 04/12/24 documented as of this encounter
--- OUTSIDE RECORDS SUMMARY | 2024-07-28 12:46 | XMS_ITS | Encounter Summary ---
Author Organization [facility] Address [address] [place] [address] Care Team Providers Care Management Assistant Name Role Phone Esperanza Gatica MD Primary Care Provider + Esperanza Gatica MD Unavailable + Esperanza Gatica MD Unavailable + Esperanza Gatica MD Unavailable + Esperanza Gatica MD Unavailable + Esperanza Gatica MD Unavailable + Jesús Orourke MD Unavailable Alfreda Ray-C Primary Care Provider + Alfreda Ray-C Unavailable + [phone] Katrin OrellanaC Unavailable +[phone] Shanna Vang-C Unavailable +[phone] Fransisco Eddy MD Unavailable [phone] Esperanza Gatica MD Unavailable + Esperanza Gatica MD Unavailable + Katrin OrellanaC Unavailable +[phone] Cristina Hsieh [facility] Unavailable +60 Alfreda Ray PA-C Unavailable +[phone] Alfreda Ray PA-C Unavailable +[phone] Cristina Hsieh Martin [facility] Unavailable +[phone] Dakota Tatum MD Unavailable +[phone] Dakota Tatum MD Unavailable +[phone] Srinivas Marie Unavailable [phone] Encounter Details Date Type Department Care Team (Late Contact Info) Description 01/25/2019 MyC Medical Advice [address] [address] Jena Howe RN Social History [...] Sex Assigned at Female 08/17/2018 7:56 AM DIGITAL PHOTOGRAPHER Legal Sex Female 4:24 AM DIGITAL PHOTOGRAPHER Gender Identity Female 08/17/2018 7:56 AM DIGITAL PHOTOGRAPHER Sexual Orientation Straight 08/17/2018 7: 56 AM DIGITAL PHOTOGRAPHER documented as of this encounter Plan of Treatment Upcoming Encounters Date Type Department Care Team (Late Contact Info) Description 09/07/2024 10:00 AM CDT Office Visit [facility] [address] [place] [address] Fransisco Eddy MD [address] [place] [address] 88 [place] [address] 09/18/2024 2:00 PM CDT Virtual Visit [facility] [address] [place] [address] 105 [place] [address] Shanna Vang PA-C [address] [place] [address] 03/29/2025 3:40 PM CDT Office Visit [address] [phone] Alfreda Ray PA-C [address] [place] [address] documented as of this encounter Visit Diagnoses Not on filedocumented in this encounter Additional Health Concerns Infection Onset Date Last Indicated Resolved Time Rule Out COVID-19 05/08/2021 05/08/2021 05/09/2021 9:08 PM DIGITAL PHOTOGRAPHER Assessment Noted Time PHQ-9 Depression Total Score: 1 08/20/19 1:44 PM DIGITAL PHOTOGRAPHER documented as of this encounter Care Teams Management Assistant Relationship Specialty Start Date End Date Esperanza Gatica MD PCP - General Family Practice 10/13/11 12/29/21 Alfreda Ray PA-C [address] [place] [address] PCP - General Family Medicine 12/30/21 [place] [address] LISBETH GARCIA 116[address] Assigned PCP 12/05/17 09/30/19 [place] [address] LISBETH GARCIA [address] Assigned PCP 10/01/19 03/02/20 [place] [address] LISBETH GARCIA [address] Assigned PCP 03/03/20 05/25/20 [place] [address] LISBETH GARCIA 229[address] Assigned PCP 05/26/20 09/28/20 [place] [address] LISBETH GARCIA [address] Assigned PCP 09/29/20 07/31/22 [place] [address] [facility] [place] [address] Assigned Musculoskeletal Provider 10/20/20 04/17/22 Alfreda Ray PA-C [address] [place] [address] 770222 Referring Physician Family Medicine 12/31/21 Katrin Orellana PA-C [address] [place] [address] Physician Newscast Producer Dermatology 12/31/21 Shanna Vang PA-C [facility] . [address] [place] [address] Assigned Cancer Care Provider 01/10/22 Fransisco Eddy MD [address] [place] [address] 050845 Assigned Rheumatology Provider 05/09/22 [place] [address] LISB[address] GARCIA [address] Assigned Pain Medication Provider 06/29/22 09/04/22 [place] [address] [place] [address] Assigned PCP 08/15/22 08/28/22 Katrin Orellana PA-C [address] [place] [address] 13389 Assigned Surgical Provider 08/15/22 02/10/24 Cristina Hsieh RPH [address] [place] [address] LISBETH HERNANDEZ [address] Pharmacist Pharmacist 09/07/22 Alfreda Ray PA-C [address] [place] [address] Assigned Pain Medication Provider 09/05/22 09/10/23 Alfreda Ray PA-C [address] [place] [address] Assigned PCP 08/29/22 Cristina Hsieh [facility] [address] [place] [address] Assigned MTM Pharmacist 09/26/22 Dakota Tatum MD [address] [place] [address] 770925 Cardiovascular Disease 03/25/23 Dakota Tatum MD [address] [place] [address] 918955 Assigned Heart and Vascular Provider 05/01/23 [place] [address] CELE GASTELUM, [address] [address] Assigned Musculoskeletal Provider 04/12/24 documented as of this encounter
--- OUTSIDE RECORDS SUMMARY | 2024-07-28 12:47 | XMS_ITS | Encounter Summary ---
Author Organization [facility] Address [address] [place] [address] Care Team Providers Care Cut Off Saw Tender Metal Name Role Phone Esperanza Gatica MD Primary Care Provider + Esperanza Gatica MD Unavailable + Esperanza Gatica MD Unavailable + Esperanza Gatica MD Unavailable + Esperanza Gatica MD Unavailable + Esperanza Gatica MD Unavailable + Jesús Orourke MD Unavailable Alfreda Ray-C Primary Care Provider + Alfreda Ray-C Unavailable + [phone] Katrin OrellanaC Unavailable +[phone] Shanna Vang-C Unavailable +[phone] Fransisco Eddy MD Unavailable [phone] Esperanza Gatica MD Unavailable + Esperanza Gatica MD Unavailable + Katrin OrellanaC Unavailable +[phone] Cristina Hsieh [facility] Unavailable +[phone] Alfreda Ray PA-C Unavailable [phone] Cory Alfreda Liu PA-C Unavailable +[phone] Cristina Hsieh Martin [facility] Unavailable +[phone] DeeptiDakota MD Unavailable [phone] NicholDakota yousif MD Unavailable +[phone] Srinivas Marie Unavailable [phone] Encounter Details Date Type Department Care Team (Late st Contact Info) Description 07/27/2019 My[facility] Medical Advice [address], [address] [place] [address] [place] [address] [place] [address] Social History Tobacco Use Types [...] Sex Assigned at Female 08/17/2018 7:56 AM VIDEOTAPE RECORDING ENGINEER Legal Sex Female 4:24 AM VIDEOTAPE RECORDING ENGINEER Gender Identity Female 08/17/2018 7:56 AM VIDEOTAPE RECORDING ENGINEER Sexual Orientation Straight 08/17/2018 7: 56 AM VIDEOTAPE RECORDING ENGINEER documented as of this encounter Plan of Treatment Upcoming Encounters Date Type Department Care Team (Late st Contact Info) Description 09/07/2024 10:00 AM CDT Office Visit [facility] [address] [place] [address] Fransisco Eddy MD [address] [place] [address] 09/18/2024 2:00 PM CDT Virtual Visit [facility] [address] [place] [address] 105 [place] [address] Shanna Vang PA-C [address] [place] [address] 03/29/2025 3:40 PM CDT Office Visit [address] [phone] Alfreda Ray PA-C [address] [place] [address] 354192 documented as of this encounter Visit Diagnoses Not on filedocumented in this encounter Additional Health Concerns Infection Onset Date Last Indicated Resolved Time Rule Out COVID-19 05/08/2021 05/08/2021 05/09/2021 9:08 PM VIDEOTAPE RECORDING ENGINEER Assessment Noted Time PHQ-9 Depression Total Score: 1 08/20/19 19 1:44 PM VIDEOTAPE RECORDING ENGINEER documented as of this encounter Care Teams Cut Off Saw Tender Metal Relationship Specialty Start Date End Date Esperanza Gatica MD PCP - General Family Practice 10/13/11 12/29/21 Alfreda Ray PA-C [address] [place] [address] [phone] PCP - General Family Medicine 12/30/21 [place] [address] [address]B[address] GARCIA [address] Assigned PCP 12/05/17 09/30/19 [place] [address] [address] GARCIA [address] Assigned PCP 10/01/19 03/02/20 [place] [address] [place] [address] Assigned PCP 03/03/20 05/25/20 [place] [address] [place] [address] Assigned PCP 05/26/20 09/28/20 [place] [address] [place] [address] Assigned PCP 09/29/20 07/31/22 Jesú[place] [address] [place] [address] Assigned Musculoskeletal Provider 10/20/20 04/17/22 Alfreda Ray PA-C [address] [place] [address] [phone] Referring Physician Family Medicine 12/31/21 Katrin Orellana PA-C [address] [place] [address] 529335 Physician Call Center Associate Dermatology 12/31/21 Shanna Vang PA-C [address] [place] [address] 033864 Assigned Cancer Care Provider 01/10/22 Fransisco Eddy MD [address] [place] [address] 737465 Assigned Rheumatology Provider 05/09/22 [place] [address] [place] [address] Assigned Pain Medication Provider 06/29/22 09/04/22 [place] [address] [place] [address] Assigned PCP 08/15/22 08/28/22 Katrin Orellana PA-C [address] [place] [address] 165455 Assigned Surgical Provider 08/15/22 02/10/24 Cristina Hsieh [facility] [address] [place] [address] LISBETH HERNANDEZ [address] Pharmacist Pharmacist 09/07/22 Alfreda Ray PA-C [address] [place] [address] 416692 Assigned Pain Medication Provider 09/05/22 09/10/23 Alfreda Ray PA-C [address] [place] [address] Assigned PCP 08/29/22 Cristina Hsieh [facility] [address] [phone] Assigned MTM Pharmacist 09/26/22 Dakota Tatum MD 6 [place] [address] Cardiovascular Disease 03/25/23 Dakota Tatum MD 6 [place] [address] Assigned Heart and Vascular Provider 05/01/23 [place] [address] [address], [address] [address] Assigned Musculoskeletal Provider 04/12/24 documented as of this encounter
--- OUTSIDE RECORDS SUMMARY | 2024-07-28 12:47 | XMS_ITS | Continuity of Care Document ---
Author Organization [facility] Address [address] [place] [address] Phone Care Team Providers Care Painting Instructor Name Role Phone Sis Conte MD Unavailable Unavailable Advance Directives Directive Yes / No Effective Date File Name No Information Encounters Encounter Description Practice Location Reason(s) For Visit Diagnoses Date Provider Providers Copied on Encounter [facility], [address], [place], [address], [place] tel:[phone] [facility], No Information 2 Dg Alegre. [facility] [address], [place], [address], [place]. tel:[phone] Family History Family Member Type Diagnosis Age At Onset No Information Payers Payer name Insurance type Covered libertarian ID Authoriza tion(s) No Information Social History Type Description Quantity Date Captured Comments Sex Female Smoking Status No Information Chief Complaint And Reason For Visit No Information Reason For Referral Reason For Referral No Information History Of Present Illness Encounter Date Complaint History Of Prese nt Illness No Information Functional Status Date Functional Assessmen t No Information Instructions Date Instruction Additional Infor mation No Information Assessments Type Assessment Date No Information Patient Care Teams Name Effective Dates (start - stop) Status Members No Information
--- OUTSIDE RECORDS SUMMARY | 2024-07-28 12:47 | XMS_ITS | Encounter Summary ---
Author Organization [facility] Address [address] [place] [address] Care Team Providers Care Washer And Capper Machine Operator Name Role Phone Esperanza Gatica MD Primary Care Provider + Esperanza Gatica MD Unavailable + Esperanza Gatica MD Unavailable + Esperanza Gatica MD Unavailable + Esperanza Gatica MD Unavailable + Esperanza Gatica MD Unavailable + Jesús Orourke MD Unavailable Alfreda Ray-C Primary Care Provider + Alfreda Ray-C Unavailable + [phone] Katrin OrellanaC Unavailable +[phone] Shanna Vang-C Unavailable +[phone] Fransisco Eddy MD Unavailable [phone] Esperanza Gatica MD Unavailable + Esperanza Gatica MD Unavailable + Katrin OrellanaC Unavailable +[phone] Cristina Hsieh [facility] Unavailable +[phone] Alfreda Ray PA-C Unavailable +[phone] Alfreda Ray PA-C Unavailable [phone] Cristina Hsieh [facility] Unavailable + [phone] DeeptiDakota MD Unavailable + [phone] LaDakota guerra MD Unavailable + [phone] Srinivas Marie DO Unavailable [phone] Reason for Referral * Consultation (Routine) - Closed Specialty Diagnoses / Procedures Referred By Contmarcus t Referred To Contact Diagnoses Dysfunction of Eustachian tube, unspecified laterality Esperanza Gatica MD Phone: tel: fax: [facility] [address] [place] [address], [address] [place] [address] Phone: tel: Referral ID Status Reason Start Date Expiration Date Visits Re quested Visits Authorized [id number] Closed 04/13/2019 04/12/2020 1 1 Comments Your provider has referred you to: N: [facility] [email or web address] Please be aware that coverage of these services is subject to the terms and limitations of your health insurance plan. Call member services at your health plan with any benefit or coverage questions. Please bring the following with you to your appointment: (1) Any X-Rays, CTs or MRIs which have been performed. Contact the facility where they were done to arrange for filler picker prior to your scheduled appointment. (2) List of current medications (3) This referral request (4) Any documents/labs given to you for this referral Reason for Visit * Reason Onset Date Comments Referral 04/13/2019 ENT Encounter Details Date Type Department Care Team (Late st Contact Info) Description 04/13/2019 [facility] [id number] [place] [address], [address] [place] [address] [place] [address] [place], [place] [phone] Referral (ENT) Social History Tobacco Use Types [...] Sex Assigned at Female 08/17/2018 7:56 AM MOISTURE METER OPERATOR Legal Sex Female 4:24 AM MOISTURE METER OPERATOR Gender Identity Female 08/17/2018 7:56 AM MOISTURE METER OPERATOR Sexual Orientation Straight 08/17/2018 7: 56 AM MOISTURE METER OPERATOR documented as of this encounter Miscellaneous Notes * Telephone Encounter - Esperanza Gatica MD - 04/13/2019 1:39 PM CDT I can refer her to the [facility] or choose a ENT in the network, but not in [place]. I placed the a referral to the local ent for now. Let me know if she wants to change documented in this encounter Plan of Treatment Upcoming Encounters Date Type Department Care Team ([facility] st Contact Info) Description 09/07/2024 10:00 AM CDT Office Visit [facility] [address] [place] [phone] Fransisco Eddy MD [address] [place] [address] 88 [place], [place] 57[address] 09/18/2024 2:00 PM CDT Virtual Visit [facility] [address] [place] [address] Shanna Vang PA-C [address] [place] [address] 03/29/2025 3:40 PM CDT Office Visit [facility] [address] [place] [address] Alfreda Ray PA-C [address] [place] [address] 956502 Scheduled Referrals Name Type Priority Associated Diagnoses Orde r Schedule OTOLARYNGOLOGY REFERRAL Referral Routine Dysfunction of Eustachian tube, unspecified laterality Ordered: 04/13/2019 documented as of this encounter Visit Diagnoses Diagnosis Dysfunction of Eustachian tube, unspecified laterality- Primary documented in this encounter Additional Health Concerns Infection Onset Date Last Indicated Resolved Time Rule Out COVID-19 05/08/2021 05/08/2021 05/09/2021 9:08 PM MOISTURE METER OPERATOR Assessment Noted Time PHQ-9 Depression Total Score: 1 08/20/19 19 1:44 PM MOISTURE METER OPERATOR documented as of this encounter Care Teams Washer And Capper Machine Operator Relationship Specialty Start Date End Date Esperanza Gatica MD PCP - General Family Practice 10/13/11 12/29/21 Alfreda Ray PA-C [address] [place] [address] PCP - General Family Medicine 12/30/21 [place] [address] LISBETH GARCIA [address] Assigned PCP 12/05/17 09/30/19 [place] [address] LISB[address] GARCIA [address] Assigned PCP 10/01/19 03/02/20 [place] [address] [place] [address] Assigned PCP 03/03/20 05/25/20 [place] [address] [place] [address] Assigned PCP 05/26/20 09/28/20 [place] [address] [place] [address] Assigned PCP 09/29/20 07/31/22 [place] [address] [address] Assigned Musculoskeletal Provider 10/20/20 04/17/22 Alfreda Ray PA-C [address] [place] [address] 297382 Referring Physician Family Medicine 12/31/21 Katrin Orellana PA-C [address] [place] [address] 405895 Physician Playground Official Dermatology 12/31/21 Shanna aVng PA-C [address] [place] [address] 379154 Assigned Cancer Care Provider 01/10/22 Fransisco Eddy MD [address] [place] [address] Assigned Rheumatology Provider 05/09/22 [place] [address] [address] [place] [address] Assigned Pain Medication Provider 06/29/22 09/04/22 [place] [address] [place] [address] Assigned PCP 08/15/22 08/28/22 Katrin Orellana PA-C [address] [place] [address] Assigned Surgical Provider 08/15/22 02/10/24 Cristina Hsieh [facility] [address] [place] [address] LISBETH HERNANDEZ [address] Pharmacist Pharmacist 09/07/22 Alfreda Ray PA-C [address] [place] [address] Assigned Pain Medication Provider 09/05/22 09/10/23 Alfreda Ray PA-C [address] [place] [address] Assigned PCP 08/29/22 Cristina Hsieh [facility] [address] [address] Assigned MTM Pharmacist 09/26/22 Dakota Tatum MD [address] [place] [address] Cardiovascular Disease 03/25/23 Dakota Tatum MD 6 [place], [place] 826[address] Assigned Heart and Vascular Provider 05/01/23 [place] [address] [address], [address] [address] Assigned Musculoskeletal Provider 04/12/24 documented as of this encounter
--- OUTSIDE RECORDS SUMMARY | 2024-07-28 12:47 | XMS_ITS | Encounter Summary ---
Author Organization [facility] Address [address] [place] [address] Care Team Providers Care Rubber Goods Finisher Name Role Phone Alfa Marcelo MD Primary Care Provider Ajay [place] MD Primary Care Provider [phone] Esperanza Gatica MD Primary Care Provider Esperanza Gatica MD Unavailable [phone] Esperanza Gatica MD Unavailable +[phone] Esperanza Gatica MD Unavailable +[phone] Esperanza Gatica MD Unavailable +[phone] Esperanza Gatica MD Unavailable +[phone] Esperanza Gatica MD Unavailable +[phone] Jesús Orourke MD Unavailable Alfreda RayC Primary Care Provider + Alfreda RayC Unavailable [phone] Katrin OrellanaC Unavailable Shanna Vang-C Unavailable +[phone] Fransisco Eddy MD Unavailable +[phone] Esperanza Gatica MD Unavailable +[phone] Esperanza Gatica MD Unavailable +[phone] Katrin OrellanaC Unavailable Cristina Hsieh [facility] Unavailable +[phone] Alfreda Liu PA-C Unavailable +[phone] Cory Alfreda Liu PA-C Unavailable +[phone] Cristina Hsieh [facility] Unavailable +[phone] Dakota Tatum MD Unavailable [phone] Dakota Tatum MD Unavailable [phone] Srinivas Marie DO Unavailable [phone] Reason for Visit * Reason Onset Date Comments MyChart Communication 10/09/2010 Encounter Details Date Type Department Care Team (Late st Contact Info) Description 10/09/2010 [facility] Medical [address] [address] Alfa Marcelo MD [facility] [address] [facility] 200 [place] [address] MyChart Communication Social History Tobacco Use Types Packs/Day Years Used Date Smoking Tobacco: Former Cigarettes Q uit: 06/21/1973 Alcohol Use Standard Drinks/Week Comments Yes 0 (1 standard drink = 0.6 oz pur e alcohol) rarely Comments No Sex and Gender Information Value Date Recorded Sex Assigned at Female 08/17/2018 7:56 AM TRACKLESS TROLLEY DRIVER Legal Sex Female 4:24 AM TRACKLESS TROLLEY DRIVER Gender Identity Female 08/17/2018 7:56 AM TRACKLESS TROLLEY DRIVER Sexual Orientation Straight 08/17/2018 7: 56 AM TRACKLESS TROLLEY DRIVER documented as of this encounter Miscellaneous Notes * Telephone Encounter - Fartun Mayes - 10/09/2010 10:17 AM CDT Please see Appsfirehart msg and advise. Thank you. documented in this encounter Plan of Treatment Upcoming Encounters Date Type Department Care Team (Late st Contact Info) Description 09/07/2024 10:00 AM CDT Office Visit [facility] [place] [address] [facility] 200 [place] [address] Fransisco Eddy MD [address] [facility] 88 [place], [place] [address] 09/18/2024 2:00 PM CDT Virtual Visit [facility] [address] [place] [address] 105 [place] [phone] Shanna Vang PARobinson [address] [place] [address] 03/29/2025 3:40 PM CDT Office Visit [address] [place] [phone] Alfreda Ray PA-C [address] [place] [address] [phone] documented as of this encounter Visit Diagnoses Not on filedocumented in this encounter Additional Health Concerns Infection Onset Date Last Indicated Resolved Time Rule Out COVID-19 05/08/2021 05/08/2021 05/09/2021 9:08 PM TRACKLESS TROLLEY DRIVER documented as of this encounter Care Teams Rubber Goods Finisher Relationship Specialty Start Date End Date Alfa Marcelo MD [facility] [address] [place] [address] PCP - General 01/22/04 01/28/11 Ajay [place] MD [facility] [address] [place] [place] [address] PCP - General Family Practice 01/29/11 10/12/11 Esperanza Gatica MD [facility] [address] [address] PCP - General Family Practice 10/13/11 12/29/21 [place] [address] [address], LISBETH [address] PCP - Assigned PCP 12/05/17 08/23/18 Alfreda Ray PA-C [address] [place] [address] PCP - General Family Medicine 12/30/21 [place] [address] [address], LISBETH [address] Assigned PCP 12/05/17 09/30/19 [place] [address] L[address] GARCIA [address] Assigned PCP 10/01/19 03/02/20 [place] [address] [address] GARCIA [address] Assigned PCP 03/03/20 05/25/20 [place] [address] [address] GARCIA [address] Assigned PCP 05/26/20 09/28/20 [place] [address] LISB[address] GARCIA [address] Assigned PCP 09/29/20 07/31/22 [place] [address] [place] [address] Assigned Musculoskeletal Provider 10/20/20 04/17/22 Alfreda Ray PA-C [address] [place] [address] Referring Physician Family Medicine 12/31/21 Katrin Orellana PA-C [address] [place] [address] Physician Public Address System Installer Dermatology 12/31/21 Shanna Vang PA-C [address] [place] [address] Assigned Cancer Care Provider 01/10/22 Fransisco Eddy MD [address] [place] [address] Assigned Rheumatology Provider 05/09/22 [place] [address] [address] GARCIA [address] Assigned Pain Medication Provider 06/29/22 09/04/22 [place] [address] LISB[address] GARCIA [address] Assigned PCP 08/15/22 08/28/22 Katrin Orellana PA-C [address] [place] [address] , [place] [address] Assigned Surgical Provider 08/15/22 02/10/24 Cristina Hsieh [facility] [address] [facility] LISBETH HERNANDEZ [address] Pharmacist Pharmacist 09/07/22 Alfreda Ray PA-C [address] [place] [address] Assigned Pain Medication Provider 09/05/22 09/10/23 Alfreda Ray PA-C [address] [place] [address] Assigned PCP 08/29/22 Cristina Hsieh [facility] [address] [place] [address] Assigned MTM Pharmacist 09/26/22 Dakota Tatum MD [address] [place] [address] Cardiovascular Disease 03/25/23 Dakota Tatum MD [address] [place] [address] Assigned Heart and Vascular Provider 05/01/23 [place] [address] [address] Assigned Musculoskeletal Provider 04/12/24 documented as of this encounter
--- OUTSIDE RECORDS SUMMARY | 2024-07-28 12:47 | XMS_ITS | Encounter Summary ---
Author Organization [facility] Address [address] [place] [address] 8[address] Care Team Providers Care Cisco Administrator Name Role Phone Kelly Haley MD Primary Care Provider + Kelly Haley MD Unavailable + Kelly Haley MD Unavailable + Kelly Haley MD Unavailable + Kelly Haley MD Unavailable + Kelly Haley MD Unavailable + Jesús Orourke MD Unavailable Alfreda Ray-C Primary Care Provider + Alfreda Ray-C Unavailable + [phone] Katrin OrellanaC Unavailable +[phone] Shanna Vang-C Unavailable +[phone] Fransisco [place] MD Unavailable [phone] Kelly Haley MD Unavailable + Kelly Haley MD Unavailable + Katrin OrellanaC Unavailable +[phone] Cristina Hsieh [facility] Unavailable +[phone] Ray, Alfreda Liu PA-C Unavailable +[phone] Cory Alfreda Liu PA-C Unavailable +[phone] Cristina Hsieh [facility] Unavailable +[phone] Dakota Tatum MD Unavailable +[phone] Dakota Tatum MD Unavailable +[phone] Srinivas Marie DO Unavailable +[phone] Reason for Visit * Reason Onset Date Comments Medication Refill 05/01/2019 traMADol (ULTR AM) 50 MG tablet Encounter Details Date Type Department Care Team (Late st Contact Info) Description 04/30/[address], [address] [place] [address] [place] [address] [place] [address] Medication Refill (traMADol (ULTRAM) 50 [...] Sex Assigned at Female 08/17/2018 7:56 AM FORM CARPENTER Legal Sex Female 4:24 AM FORM CARPENTER Gender Identity Female 08/17/2018 7:56 AM FORM CARPENTER Sexual Orientation Straight 08/17/2018 7: 56 AM FORM CARPENTER documented as of this encounter Miscellaneous Notes * Telephone Encounter - Leigha Rinaldi RN - 05/02/2019 8:40 AM CST Images from the original note were not included. ENVIRONMENTAL SERVICES AIDE checked 05/02/2019: Leigha Rinaldi RN CARPENTER * Telephone Encounter - Diya Stone - [...] Score(s): No flowsheet data found. ?? Last [facility] website verification: Done 03.16.18 Last Written Prescription Date: 04/05/19 Last Fill Quantity: 90, # refills: 0 THE MOST RECENT OFFICE VISIT MUST BE WITHIN THE PAST 3 MONTHS. AT LEAST ONE FACE TO FACE VISIT MUSTOCCUR EVERY 6 MONTHS. ADDITIONAL VISITS CAN BE VIRTUAL. (THIS STATEMENT SHOULD BE DELETED.) [place] [facility] [place]: 02/21/2019 Future Office visit: [...] OXY13, PPX13, BUP13 Processing: Fax Rx to [facility] pharmacy [email or web address] ENVIRONMENTAL SERVICES AIDE checked in past 3 months? No, route to RN 06/17/18 CARPENTER documented in this encounter Plan of Treatment Upcoming Encounters Date Type Department Care Team (Late st Contact Info) Description 09/07/2024 10:00 AM CDT Office Visit [facility] [place] [address] [place] [address] 200 [place] [phone] Fransisco [place] MD [address] [place] [address] 88 [place] [address] 09/18/2024 2:00 PM CDT Virtual Visit [facility] [address] [place] [address] 105 [place] [phone] Shanna Vang PA-C [address] [place] [address] 556274 03/29/2025 3:40 PM CDT Office Visit [address] [address] Alfreda Rya PA-C [address] [place] [address] documented as of this encounter Visit Diagnoses Diagnosis Primary osteoarthritis involving multiple joints documented in this encounter Additional Health Concerns Infection Onset Date Last Indicated Resolved Time Rule Out COVID-19 05/08/2021 05/08/2021 05/09/2021 9:08 PM FORM CARPENTER Assessment Noted Time PHQ-9 Depression Total Score: 1 08/20/19 19 1:44 PM FORM CARPENTER documented as of this encounter Care Teams Cisco Administrator Relationship Specialty Start Date End Date Kelly Haley MD PCP - General Family Practice 10/13/11 12/29/21 Alfreda Ray PA-C [address] [place] [address] PCP - General Family Medicine 12/30/21 [place] [address] [place] [address] Assigned PCP 12/05/17 09/30/19 [place] [address] [place] [address] Assigned PCP 10/01/19 03/02/20 [place] [address] [place] [address] Assigned PCP 03/03/20 05/25/20 [place] [address] [place] [address] Assigned PCP 05/26/20 09/28/20 [place] [address] [place] [address] Assigned PCP 09/29/20 07/31/22 Jesú[place] [address] [place] [address] Assigned Musculoskeletal Provider 10/20/20 04/17/22 Alfreda Ray PA-C [address] [place] [address] [phone] Referring Physician Family Medicine 12/31/21 Katrin Orellana PA-C [address] [address] Physician Pearl Stringer Dermatology 12/31/21 Shanna Vang PA-C [address] [place] [address] Assigned Cancer Care Provider 01/10/22 Fransisco [place] MD [address] [place] [address] 88 [place] [address] Assigned Rheumatology Provider 05/09/22 [place] [address] [place] [address] Assigned Pain Medication Provider 06/29/22 09/04/22 [place] [address] [place] [address] Assigned PCP 08/15/22 08/28/22 Katrin Orellana PA-C [address] [place] [address] 98 [place], [place] 741425 Assigned Surgical Provider 08/15/22 02/10/24 Cristina Hsieh [facility] [address] [facility] LISBETH HERNANDEZ [address] Pharmacist Pharmacist 09/07/22 Alfreda Ray PA-C [address] [place] [address] [phone] Assigned Pain Medication Provider 09/05/22 09/10/23 Alfreda Ray PA-C [address] [place] [address] Assigned PCP 08/29/22 Cristina Hsieh, [facility] [address] [facility] 101 [place] [address] Assigned MTM Pharmacist 09/26/22 Dakota Tatum MD [address] [place] [address] 751005 Cardiovascular Disease 03/25/23 Dakota Tatum MD [address] [place] [address] 796475 Assigned Heart and Vascular Provider 05/01/23 [place] [address] [address], [facility] [address] [place] [address] Assigned Musculoskeletal Provider 04/12/24 documented as of this encounter
--- OUTSIDE RECORDS SUMMARY | 2024-07-28 12:47 | XMS_ITS | Encounter Summary ---
Author Organization [facility] Address [address] [place] [address] Care Team Providers Care Metal Fabricating Supervisor Name Role Phone Esperanza Gatica MD Primary Care Provider + Esperanza Gatica MD Unavailable + Esperanza Gatica MD Unavailable + Esperanza Gatica MD Unavailable + Esperanza Gatica MD Unavailable + Esperanza Gatica MD Unavailable + Jesús Orourke MD Unavailable Alfreda Ray-C Primary Care Provider + Alfreda Ray-C Unavailable + [phone] Katrin OrellanaC Unavailable +[phone] Shanna Vang-C Unavailable +[phone] Fransisco [place] MD Unavailable [phone] Esperanza Gatica MD Unavailable + Esperanza Gatica MD Unavailable + Katrni OrellanaC Unavailable +[phone] Cristina Hsieh [facility] Unavailable +[phone] Alfreda Ray PA-C Unavailable Cory Alfreda Liu PA-C Unavailable [phone] Cristina Hsieh Martin [facility] Unavailable +[phone] DeeptiDakota MD Unavailable +[phone] NicholDakota yousif MD Unavailable +[phone] Srinivas Marie Unavailable [phone] Encounter Details Date Type Department Care Team (Late st Contact Info) Description 07/27/2019 MyC Medical Advice [address], [address] [place] [address] [place] [address] [place] [address] Social History Tobacco Use Types [...] Assigned at Female 08/17/2018 7:56 AM ACCOUNT DEVELOPMENT ASSOCIATE Legal Sex Female 4:24 AM ACCOUNT DEVELOPMENT ASSOCIATE Gender Identity Female 08/17/2018 7:56 AM ACCOUNT DEVELOPMENT ASSOCIATE Sexual Orientation Straight 08/17/2018 7: 56 AM ACCOUNT DEVELOPMENT ASSOCIATE documented as of this encounter Plan of Treatment Upcoming Encounters Date Type Department Care Team (Late st Contact Info) Description 09/07/2024 10:00 AM CDT Office Visit [facility] [address] [place] [address] Fransisco [place] MD [address] [place] [address] 09/18/2024 2:00 PM CDT Virtual Visit [facility] [address] [place] [address] 105 [place] [address] Shanna Vang PA-C [address] [place] [address] 03/29/2025 3:40 PM CDT Office Visit [address] [phone] Alfreda Ray PA-C [address] [place] [address] 016052 documented as of this encounter Visit Diagnoses Not on filedocumented in this encounter Additional Health Concerns Infection Onset Date Last Indicated Resolved Time Rule Out COVID-19 05/08/2021 05/08/2021 05/09/2021 9:08 PM ACCOUNT DEVELOPMENT ASSOCIATE Assessment Noted Time PHQ-9 Depression Total Score: 1 08/20/19 19 1:44 PM ACCOUNT DEVELOPMENT ASSOCIATE documented as of this encounter Care Teams Metal Fabricating Supervisor Relationship Specialty Start Date End Date Esperanza Gatica MD PCP - General Family Practice 10/13/11 12/29/21 Alfreda Ray PA-C [address] [place] [address] 927352 PCP - General Family Medicine 12/30/21 [place] [address] [address] GARCIA [address] Assigned PCP 12/05/17 09/30/19 [place] [address] [address] GARCIA [address] Assigned PCP 10/01/19 03/02/20 [place] [address] [place] [address] Assigned PCP 03/03/20 05/25/20 [place] [address] [place] [address] Assigned PCP 05/26/20 09/28/20 [place] [address] [place] [address] Assigned PCP 09/29/20 07/31/22 Jesú[place] [address] [place] [address] Assigned Musculoskeletal Provider 10/20/20 04/17/22 Alfreda Ray PA-C [address] [place] [address] [phone] Referring Physician Family Medicine 12/31/21 Katrin Orellana PA-C [address] [place] [address] 747475 Physician Dietary Worker Dermatology 12/31/21 Shanna Vang PA-C [address] [place] [address] 477294 Assigned Cancer Care Provider 01/10/22 Fransisco [place] MD [address] [place] [address] 827145 Assigned Rheumatology Provider 05/09/22 [place] [address] [place] [address] Assigned Pain Medication Provider 06/29/22 09/04/22 [place] [address] [place] [address] Assigned PCP 08/15/22 08/28/22 Katrin Orellana PA-C [address] [place] [address] 289565 Assigned Surgical Provider 08/15/22 02/10/24 Cristina Hsieh [facility] [address] [place] [address] LISBETH HERNANDEZ [address] Pharmacist Pharmacist 09/07/22 Alfreda Ray PA-C [address] [place] [address] 226362 Assigned Pain Medication Provider 09/05/22 09/10/23 Alfreda Ray PA-C [address] [place] [address] Assigned PCP 08/29/22 Cristina Hsieh [facility] [address] [phone] Assigned MTM Pharmacist 09/26/22 Dakota Tatum MD 6 [place] [address] Cardiovascular Disease 03/25/23 Dakota Tatum MD 6 [place] [address] Assigned Heart and Vascular Provider 05/01/23 [place] [address] [address], [address] [address] Assigned Musculoskeletal Provider 04/12/24 documented as of this encounter
--- OUTSIDE RECORDS SUMMARY | 2024-07-28 12:47 | XMS_ITS | Encounter Summary ---
Author Organization [facility] Address [address] [place] [address] Care Team Providers Care Bag Grader Name Role Phone Ajay Vick MD Primary Care Provider [phone] Esperanza Gatica MD Primary Care Provider + Esperanza Gatica MD Unavailable + Esperanza Gatica MD Unavailable + Esperanza Gatica MD Unavailable + Esperanza Gatica MD Unavailable + Esperanza Gatica MD Unavailable + Esperanza Gatica MD Unavailable [phone] Jesús Orourke MD Unavailable Alfreda RayC Primary Care Provider + Alfreda Ray-Gallito Unavailable +[phone] Katrin Orellana PA-C Unavailable Shanna Vang-C Unavailable +[phone] Fransisco [place] MD Unavailable +[phone] Esperanza Gatica MD Unavailable +[phone] Esperanza Gatica MD Unavailable +[phone] Katrin Orellana PA-C Unavailable Cristina Hsieh [facility] Unavailable Ho Raymustapha Liu PA-C Unavailable [phone] Ho Raymustapha Liu PA-C Unavailable Cristina Hsieh [facility] Unavailable Dakota Tatum MD Unavailable [phone] Dakota Tatum MD Unavailable [phone] Srinivas Marie DO Unavailable [phone] Reason for Visit * Reason Onset Date Comments Refill Request 07/23/2011 tramadol Encounter Details Date Type Department Care Team (Late st Contact Info) Description 07/23/2011 MyC Refill [address] [address] Ajay Vick MD [address] [facility] [place] [address] Refill Request (tramadol) Social History Tobacco Use Types Packs/Day Years Used Date Smoking Tobacco: Former Cigarettes Q uit: 06/21/1973 Smokeless Tobacco: Former Alcohol Use Standard Drinks/Week Comments Yes 0 (1 standard drink = 0.6 oz pur e alcohol) rarely Comments No Sex and Gender Information Value Date Recorded Sex Assigned at Female 08/17/2018 7:56 AM TILE LAYER Legal Sex Female 4:24 AM TILE LAYER Gender Identity Female 08/17/2018 7:56 AM TILE LAYER Sexual Orientation Straight 08/17/2018 7: 56 AM TILE LAYER documented as of this encounter Miscellaneous Notes * Telephone Encounter - Sharon Sosa - 07/23/2011 9:04 AM CST Medication requested: Ultram 50 mg tabs Date of last office visit related to request: 03/31/11 Date last filled: 05/25/11 Qty #[phone] This is not a PSO medication, forwarded to provider for authorization. Michelle oSsa RN LAYER * Telephone Encounter - Kassandra David - 07/23/2011 9:01 AM CST TRAMADOL Last OV: 03/31/11 Reason for visit: right knee pain Last fill date: 05/25/11 #90 Unable to fill per standing order routed to Dr. Vick for approval. Kassandra David RN LAYER * Telephone Encounter - Kassandra David - 07/23/2011 8:56 [facility] Original authorizing provider: AJAY VICK MD Barbara J Pellicci would like a refill of the following medications: tramadol (ULTRAM) 50 MG tablet [AJAY VICK MD] Preferred pharmacy: [facility] Comment: LAYER documented in this encounter Plan of Treatment Upcoming Encounters Date Type Department Care Team (Late st Contact Info) Description 09/07/2024 10:00 AM CDT Office Visit [facility] [address] [place] [phone] Fransisco [place] MD [address] [place] [address] 88 [place] [address] 09/18/2024 2:00 PM CDT Virtual Visit [facility] [address] [place] [address] 105 [place] [address] Shanna Vang PA-C [address] [place] [address] 03/29/2025 3:40 PM CDT Office Visit [address] [phone] Alfreda Ray PA-C [address] [place] [address] documented as of this encounter Visit Diagnoses Diagnosis Knee pain Pain in joint, lower leg documented in this encounter Additional Health Concerns Infection Onset Date Last Indicated Resolved Time Rule Out COVID-19 05/08/2021 05/08/2021 05/09/2021 9:08 PM TILE LAYER documented as of this encounter Care Teams Bag Grader Relationship Specialty Start Date End Date Ajay Vick MD PCP - General Family Practice 01/29/11 10/12/11 Esperanza Gatica MD PCP - General Family Practice 10/13/11 12/29/21 [place] [address] [address] GARCIA [address] PCP - Assigned PCP 12/05/17 08/23/18 Alfreda Ray PA-C [address] [place] [address] PCP - General Family Medicine 12/30/21 [place] [address] [address] GARCIA [address] Assigned PCP 12/05/17 09/30/19 [place] [address] [address]ARCIA [address] Assigned PCP 10/01/19 03/02/20 [place] [address] [address]IS[address] GARCIA [address] Assigned PCP 03/03/20 05/25/20 [place] [address] [address] [place] [address] Assigned PCP 05/26/20 09/28/20 [place] [address] [place] [address] Assigned PCP 09/29/20 07/31/22 [place] [address] [address] Assigned Musculoskeletal Provider 10/20/20 04/17/22 Alfreda Ray PA-C [address] [place] [address] Referring Physician Family Medicine 12/31/21 Katrin Orellana PA-C [address] [place] [address] Physician Employment Assistant Dermatology 12/31/21 Shanna Vang PA-C [address] [address] Assigned Cancer Care Provider 01/10/22 Fransisco [place] MD [address] [place] [address] Assigned Rheumatology Provider 05/09/22 [place] [address] [place] [address] Assigned Pain Medication Provider 06/29/22 09/04/22 [place] [address] [place] [address] Assigned PCP 08/15/22 08/28/22 Katrin Orellana PA-C [address] [place] [address] Assigned Surgical Provider 08/15/22 02/10/24 Cristina Hsieh [facility] [address] [place] [address] [place] [address] Pharmacist Pharmacist 09/07/22 Alfreda Ray PA-C [address] [place] [address] 178372 Assigned Pain Medication Provider 09/05/22 09/10/23 Alfreda Ray PA-C [address] [place] [address] Assigned PCP 08/29/22 Cristina Hsieh [facility] [address] [address] Assigned MTM Pharmacist 09/26/22 Dakota Tatum MD [address] [place] [address] 287615 Cardiovascular Disease 03/25/23 Dakota Tatum MD [address] [place] [address] Assigned Heart and Vascular Provider 05/01/23 [place] [address] [address], [address] [address] Assigned Musculoskeletal Provider 04/12/24 documented as of this encounter
--- OUTSIDE RECORDS SUMMARY | 2024-07-28 12:47 | XMS_ITS | Encounter Summary ---
Author Organization [facility] [place] Address [address] [place] [address] Care Team Providers Care Registered Occupational Therapist Name Role Phone Alfreda Ray PA-C Primary Care Provider + Alfreda Ray PA-C Unavailable + [phone] Katrin Orellana PA-C Unavailable [phone] Shanna Vang PA-C Unavailable +[phone] Fransisco [place] MD Unavailable [phone] Esperanza Gatica MD Unavailable +[phone] Esperanza Gatica MD Unavailable +[phone] Katrin Orellana PA-C Unavailable [phone] Cristina Hsieh [facility] Unavailable +[phone] Alfreda Ray PA-C Unavailable + [phone] Alfreda Ray PA-C Unavailable + [phone] Cristina Hsieh [facility] Unavailable +[phone] Dakota Tatum MD Unavailable + [phone] Dakota Tatum MD Unavailable + [phone] Srinivas Marie DO Unavailable [phone] Encounter Details Date Type Department Care Team (Late st Contact Info) Description 08/27/2022 [facility] Medical Advice [facility] [address] [place] [address] 105 [place] [address] Mindy Herron Social History Tobacco Use Types [...] Sex Assigned at Female 08/17/2018 7:56 AM PROJECT MANAGER PROCESS DEVELOPMENT Legal Sex Female 4:24 AM PROJECT MANAGER PROCESS DEVELOPMENT Gender Identity Female 08/17/2018 7:56 AM PROJECT MANAGER PROCESS DEVELOPMENT Sexual Orientation Straight 08/17/2018 7: 56 AM PROJECT MANAGER PROCESS DEVELOPMENT COVID-19 Exposure Response Date Recorded In the last 10 days, have yo u been in contact with someone who was confirmed or suspected to have Coronavirus/COVID-19? No / Unsure 08/26/2022 9:39 AM PROJECT MANAGER PROCESS DEVELOPMENT documented as of this encounter Plan of Treatment Upcoming Encounters Date Type Department Care Team (Late st Contact Info) Description 09/07/2024 10:00 AM CDT Office Visit [facility] [address] [phone] Fransisco [place] MD [address] [place] [address] 09/18/2024 2:00 PM CDT Virtual Visit [facility] [address] [place] [address] 105 [place] [address] Shanna Vang, PAFilemonC [facility] [address] 03/29/2025 3:40 PM CDT Office Visit [address] [phone] Alfreda Ray PA-C [address] [place] [address] 756452 documented as of this encounter Visit Diagnoses Not on filedocumented in this encounter Additional Health Concerns Assessment Noted Time PHQ-9 Depression Total Score: 4 09/05/19 22 10:39 AM CDT documented as of this encounter Care Teams Registered Occupational Therapist Relationship Specialty Start Date End Date Alfreda Ray PA-C [address] [place] [address] PCP - General Family Medicine 12/30/21 Alfreda Ray PA-C [address] [place] [address] Referring Physician Family Medicine 12/31/21 Katrin Orellana PA-C [address] [place] [address] Physician Delivery Rn Dermatology 12/31/21 Shanna Vang PA-C [address] [address] Assigned Cancer Care Provider 01/10/22 Fransisco [place] MD [address] [place] [address] 274875 Assigned Rheumatology Provider 05/09/22 [place] [address] [address] GARCIA [address] Assigned Pain Medication Provider 06/29/22 09/04/22 [place] [address] [address] GARCIA [address] Assigned PCP 08/15/22 08/28/22 Katrin Orellana PA-C [address] [place] [address] Assigned Surgical Provider 08/15/22 02/10/24 Cristina Hsieh [facility] [address] [place] [address] LISBETH HERNANDEZ [address] Pharmacist Pharmacist 09/07/22 Alfreda Ray PA-C [address] [place] [address] 724322 Assigned Pain Medication Provider 09/05/22 09/10/23 Alfreda Ray PA-C [address] [place] [address] 717012 Assigned PCP 08/29/22 Cristina Hsieh [facility] [address] [place] [address] Assigned MTM Pharmacist 09/26/22 Dakota Tatum MD [address] [place] [address] Cardiovascular Disease 03/25/23 Dakota Tatum MD [address] [place] [address] Assigned Heart and Vascular Provider 05/01/23 [place] [address] [address] Assigned Musculoskeletal Provider 04/12/24 documented as of this encounter
--- OUTSIDE RECORDS SUMMARY | 2024-07-28 12:47 | XMS_ITS | Encounter Summary ---
Author Organization [facility] Address [address] [place] [address] Care Team Providers Care Shoe Repair Cobbler Name Role Phone Esperanza Gatica MD Primary Care Provider + Esperanza Gatica MD Unavailable + Esperanza Gatica MD Unavailable + Esperanza Gatica MD Unavailable + Esperanza Gatica MD Unavailable + Esperanza Gatica MD Unavailable + Jesús Orourke MD Unavailable Alfreda Ray-C Primary Care Provider + Alfreda Ray-C Unavailable + [phone] Katrin OrellanaC Unavailable +[phone] Shanna Vang-C Unavailable +[phone] Fransisco Eddy MD Unavailable +[phone] Esperanza Gatica MD Unavailable + Esperanza Gatica MD Unavailable + Katrin OrellanaC Unavailable +[phone] Cristina Hsieh [facility] Unavailable +[phone] Alfreda Ray PA-C Unavailable +[phone] Alfreda Ray PA-C Unavailable +[phone] MelissaCristina shields Martin [facility] Unavailable +[phone] LaDakota guerra MD Unavailable [phone] LaDakota guerra MD Unavailable [phone] Srinivas Marie DO Unavailable [phone] Encounter Details Date Type Department Care Team (Late st Contact Info) Description 07/26/2019 MyC Medical Advice [address], [address] [place] [address] [place] [address] [place] [address] Social History Tobacco Use Types [...] Assigned at Female 08/17/2018 7:56 AM SENIOR STACK ENGINEER Legal Sex Female 4:24 AM SENIOR STACK ENGINEER Gender Identity Female 08/17/2018 7:56 AM SENIOR STACK ENGINEER Sexual Orientation Straight 08/17/2018 7: 56 AM SENIOR STACK ENGINEER documented as of this encounter Miscellaneous Notes * Telephone Encounter - Claudia Stoll RN - 07/26/2019 1:20 PM SENIOR STACK ENGINEER temazepam (RESTORIL) 7.5 MG capsule 90 capsule 0 06/02/2019 No Sig - Route: Take 1 capsule (7.5 mg) by mouth At Bedtime - Oral Sent to pharmacy as: temazepam (RESTORIL) 7.5 MG capsule Class: E-Prescribe Order: [id number] E-Prescribing Status: Receipt confirmed by pharmacy (06/02/2019 ??3:54 PM SENIOR STACK ENGINEER) Claudia Stoll RN Flex OR STACK ENGINEER documented in this encounter Plan of Treatment Upcoming Encounters Date Type Department Care Team (Late st Contact Info) Description 09/07/2024 10:00 AM CDT Office Visit [facility] [place] [address] [place] [address] 200 [place] [phone] Fransisco Eddy MD [address] [place] [address] 88 [place] [address] 09/18/2024 2:00 PM CDT Virtual Visit [facility] [address] [place] [phone] Shanna Vang PA-C [address] [address] 03/29/2025 3:40 PM CDT Office Visit [address] [phone] Alfreda Ray PA-C [address] [place] [address] 977102 documented as of this encounter Visit Diagnoses Not on filedocumented in this encounter Additional Health Concerns Infection Onset Date Last Indicated Resolved Time Rule Out COVID-19 05/08/2021 05/08/2021 05/09/2021 9:08 PM SENIOR STACK ENGINEER Assessment Noted Time PHQ-9 Depression Total Score: 1 08/20/19 19 1:44 PM SENIOR STACK ENGINEER documented as of this encounter Care Teams Shoe Repair Cobbler Relationship Specialty Start Date End Date Esperanza Gatica MD PCP - General Family Practice 10/13/11 12/29/21 Alfreda Ray PA-C [address] [place] [address] PCP - General Family Medicine 12/30/21 [place] [address] [place] [address] Assigned PCP 12/05/17 09/30/19 [place] [address] [place] [address] Assigned PCP 10/01/19 03/02/20 [place] [address] [place] [address] Assigned PCP 03/03/20 05/25/20 [place] [address] [place] [address] Assigned PCP 05/26/20 09/28/20 [place] [address] [place] [address] Assigned PCP 09/29/20 07/31/22 [place] [address] [place] [address] Assigned Musculoskeletal Provider 10/20/20 04/17/22 Alfreda Ray PA-C [address] [place] [address] Referring Physician Family Medicine 12/31/21 Katrin Orellana PA-C [address] [place] [address] Physician Formula Mixer Dermatology 12/31/21 Shanna Vang PA-C [address] [place] [address] Assigned Cancer Care Provider 01/10/22 Fransisco Eddy MD [address] [place] [address] Assigned Rheumatology Provider 05/09/22 [place] [address] [place] [address] Assigned Pain Medication Provider 06/29/22 09/04/22 [place] [address] [address] [facility] [place] [address] Assigned PCP 08/15/22 08/28/22 Katrin Orellana PA-C [address] [place] [address] Assigned Surgical Provider 08/15/22 02/10/24 Cristina Hsieh [facility] [address] [place] [address] Pharmacist Pharmacist 09/07/22 Alfreda Ray PA-C [address] [place] [address] Assigned Pain Medication Provider 09/05/22 09/10/23 Alfreda Ray PA-C [address] [place] [address] 465272 Assigned PCP 08/29/22 Cristina Hsieh, [facility] [address] [address] Assigned MTM Pharmacist 09/26/22 Dakota Tatum MD [address] [place] [address] Cardiovascular Disease 03/25/23 Dakota Tatum MD [address] [place] [address] Assigned Heart and Vascular Provider 05/01/23 [place] [address] [address], [address] [address] Assigned Musculoskeletal Provider 04/12/24 documented as of this encounter
--- OUTSIDE RECORDS SUMMARY | 2024-07-28 12:47 | XMS_ITS | Clinical Summary ---
Author Organization [facility] Address [place], [place] [address] Care Team Providers Care Weight Reduction Specialist Name Role Phone Clinic, No Pcp Or [...] on file Legal Sex Female 5:27 AM CLOTH BOIL OFF MACHINE OPERATOR Gender Identity Not on file Sexual Orientation Not on file Obstetrics History Last Filed Vital Signs Vital Sign Reading Time Taken Comments Blood Pressure 125/62 01/31/2019 10:24 AM CDT Pulse 66 01/31/2019 10:24 AM CDT Temperature 36.3 C (97.3 F) 04/29/2015 8:20 AM CLOTH BOIL OFF MACHINE OPERATOR Respiratory Rate 16 04/29/2015 8:45 AM CLOTH BOIL OFF MACHINE OPERATOR Oxygen Saturation 98% 04/29/2015 8:45 AM CLOTH BOIL OFF MACHINE OPERATOR Inhaled Oxygen Concentration - - Weight 61.7 kg (135 lb 15.3 oz) 015 12:42 AM CLOTH BOIL OFF MACHINE OPERATOR Height 160 cm (5' 3) 04/29/2015 6:24 AM CLOTH BOIL OFF MACHINE OPERATOR Body Mass Index 24.08 04/25/2015 12:42 AM CLOTH BOIL OFF MACHINE OPERATOR Plan of Treatment Health Maintenance Due Date Last Done Comments Tdap 1953 Depression screening for age 12+ 1954 BMI (ht and wt on same day) for age 18+ 1960 Zoster (shingles) series for age 50+ (1 of 2) 1961 Tetanus booster 1962 Pneumococcal series for age 50+ (1 of 1 - PCV) 1992 DEXA/DXA scan for age 65+ 2007 Medicare Wellness for age 65+ 2007 RSV vaccine for adults or (1 - 1-dose 75+ series) 2017 Influenza for age 65+ 02/20/2024 COVID-19 vaccine series ( season) 2024 03/16/2024, 05/03/2023, 04/22/2022, Additional history exists Medical Devices Implanted Type Area Military Pilot Device Identifier Shelf Expiration Date Model / Serial / Lot Lens Iol 21.5 Wf [id number]. 5 - [id number] Implanted:Qty: 1 on 04/15/2015 by David Garcia MD at [facility] Left: Eye [employer] 01/14/2020 [id number]-[id number]. 5# / [id number] / Lens Iol 20.5 Wf [id number]. 5 - [id number] Implanted:Qty: 1 on 04/29/2015 by David Garcia MD at [facility] Right: Eye [employer] 01/19/2020 [id number]-76. 5# / [id number] / Insurance MEDICARE PART B HB [...] 6:17 AM 04/15/2015 7:54 AM Care Teams Weight Reduction Specialist Relationship Specialty Start Date End Date Clinic, No Pcp Or . PCP - General 02/26/22
--- OUTSIDE RECORDS SUMMARY | 2024-07-28 12:47 | XMS_ITS | Encounter Summary ---
Author Organization [facility] Address [address] [place] [address] Care Team Providers Care Scoop Driver Name Role Phone Esperanza Gatica MD Primary Care Provider + Esperanza Gatica MD Unavailable + Esperanza Gatica MD Unavailable + Esperanza Gatica MD Unavailable + Esperanza Gatica MD Unavailable + Esperanza Gatica MD Unavailable + Jesús Orourke MD Unavailable Alfreda Ray-C Primary Care Provider + Alfreda Ray-C Unavailable + [phone] Katrin OrellanaC Unavailable +[phone] Shanna Vang-C Unavailable +[phone] Fransisco Eddy MD Unavailable [phone] Esperanza Gatica MD Unavailable + Esperanza Gatica MD Unavailable + Katrin OrellanaC Unavailable +[phone] Cristina Hsieh [facility] Unavailable +60 Alfreda Ray PA-C Unavailable +[phone] Alfreda Ray PA-C Unavailable +[phone] Cristina Hsieh Martin [facility] Unavailable [phone] LaDakota guerra MD Unavailable [phone] LaDakota guerra MD Unavailable [phone] Srinivas Marie DO Unavailable [phone] Reason for Visit * Reason Onset Date Comments Prior Auth - Medication 04/28/2019 gabapent in (NEURONTIN) 100 MG capsule-Tiering Exception-Denied Encounter Details Date Type Department Care Team (Late st Contact Info) Description 04/28/[address], [address] [place] [address] [place] [address] [place] [address] Prior Auth - Medication (gabapentin [...] Sex Assigned at Female 08/17/2018 7:56 AM SUPPLY CHAIN LOGISTICS MANAGER Legal Sex Female 4:24 AM SUPPLY CHAIN LOGISTICS MANAGER Gender Identity Female 08/17/2018 7:56 AM SUPPLY CHAIN LOGISTICS MANAGER Sexual Orientation Straight 08/17/2018 7: 56 AM SUPPLY CHAIN LOGISTICS MANAGER documented as of this encounter Miscellaneous Notes * Telephone Encounter - Nidhi Russo - 05/02/2019 11:45 AM CST Images from the original note were not included. PRIOR AUTHORIZATION DENIED Medication: gabapentin (NEURONTIN) 100 MG capsule-Tiering Exception-Denied Denial Date: 04/28/2019 Denial Rational: Patient does not meet criteria for tiering exception LY CHAIN LOGISTICS MANAGER * Telephone Encounter - RussoNidhi Elder - 05/02/2019 10:41 AM CST I spoke to [facility]. She states this request was denied. She will have the denial refaxed. LY CHAIN LOGISTICS MANAGER * Telephone Encounter - Karan Nidhi L - 04/28/2019 9:27 AM CST [place] Prior Authorization Team PA Initiation-Tiering exception. Completed via phone with Jamee at [facility] Medication: gabapentin (NEURONTIN) 100 MG capsule-Tiering Exception Insurance Company: [facility] Filling the Rx: [facility] [place], [place] - [address] [place] [address] Filling Pharmacy Filling Pharmacy Fax: Start Date: 04/28/2019 LY CHAIN LOGISTICS MANAGER documented in this encounter Plan of Treatment Upcoming Encounters Date Type Department Care Team (Late st Contact Info) Description 09/07/2024 10:00 AM CDT Office Visit [facility] [address] [phone] Fransisco Eddy MD [address] [place] [address] 88 [place] [address] 09/18/2024 2:00 PM CDT Virtual Visit [facility] [place] [address] 105 [place] [phone] Shanna Vang, PAFilemonC [address] [place] [address] 03/29/2025 3:40 PM CDT Office Visit [facility] [address] [place] [phone] Alfreda Ray PA-C [address] [place] [address] 489082 documented as of this encounter Visit Diagnoses Not on filedocumented in this encounter Additional Health Concerns Infection Onset Date Last Indicated Resolved Time Rule Out COVID-19 05/08/2021 05/08/2021 05/09/2021 9:08 PM SUPPLY CHAIN LOGISTICS MANAGER Assessment Noted Time PHQ-9 Depression Total Score: 1 08/20/19 19 1:44 PM SUPPLY CHAIN LOGISTICS MANAGER documented as of this encounter Care Teams Scoop Driver Relationship Specialty Start Date End Date Esperanza Gatica MD PCP - General Family Practice 10/13/11 12/29/21 Alfreda Ray PA-C [address] [place] [address] PCP - General Family Medicine 12/30/21 [place] [address] [place] [place] [address] Assigned PCP 12/05/17 09/30/19 [place] [address] [address] [address] Assigned PCP 10/01/19 03/02/20 [place] [address] [address] [address] Assigned PCP 03/03/20 05/25/20 [place] [address] [place] [address] Assigned PCP 05/26/20 09/28/20 [place] [address] [place] [address] Assigned PCP 09/29/20 07/31/22 Jesú[place] [address] [place] [address] Assigned Musculoskeletal Provider 10/20/20 04/17/22 Alfreda Ray PA-C [address] [place] [address] 576002 Referring Physician Family Medicine 12/31/21 Katrin Orellana PA-C [address] [place] [address] 98 [place], [place] [address] Physician Stockroom Selector Dermatology 12/31/21 Shanna Vang PA-C [address] [place] [address] 026354 Assigned Cancer Care Provider 01/10/22 Fransisco Eddy MD [address] [place] [address] 782335 Assigned Rheumatology Provider 05/09/22 [place] [address] [place] [address] Assigned Pain Medication Provider 06/29/22 09/04/22 [place] [address] [place] [address] Assigned PCP 08/15/22 08/28/22 Katrin Orellana PA-C [address] [place] [address] 468435 Assigned Surgical Provider 08/15/22 02/10/24 Cristina Hsieh [facility] [address] [facility] [place] [address] Pharmacist Pharmacist 09/07/22 Alfreda Ray PA-C [address] [place] [address] 526962 Assigned Pain Medication Provider 09/05/22 09/10/23 Alfreda Ray PA-C [address] [place] [address] 779622 Assigned PCP 08/29/22 Cristina Hsieh [facility] [address] [address] Assigned MTM Pharmacist 09/26/22 Dakota Tatum MD [address] [place] [address] 968855 Cardiovascular Disease 03/25/23 Dakota Tatum MD [address] [place] [address] Assigned Heart and Vascular Provider 05/01/23 [place] [address] [address] [facility] [address] [place] [address] Assigned Musculoskeletal Provider 04/12/24 documented as of this encounter
--- OUTSIDE RECORDS SUMMARY | 2024-07-28 12:47 | XMS_ITS | Encounter Summary ---
Author Organization [facility] Address [address] [place] [address] Care Team Providers Care Burring Wheel Operator Name Role Phone Esperanza Gatica MD Unavailable + Alfreda Ray PA-C Primary Care Provider + Alfreda Ray PA-C Unavailable + Katrin Orellana PA-C Unavailable +[phone] Shanna Vang PA-C Unavailable +[phone] Fransisco Eddy MD Unavailable +[phone] Esperanza Gatica MD Unavailable + Esperanza Gatica MD Unavailable + Katrin Orellana PA-C Unavailable +[phone] Cristina Hsieh [facility] Unavailable +[phone] Alfreda Ray PA-C Unavailable +[phone] Alfreda Ray PA-C Unavailable +[phone] Cristina Hsieh [facility] Unavailable [phone] Dakota Tatum MD Unavailable + Dakota Tatum MD Unavailable + [phone] Srinivas Marie DO Unavailable [phone] Encounter Details Date Type Department Care Team (Late Contact Info) Description 07/27/2022 MyC Medical Advice [address] [phone] Margie Santiago Social History Tobacco Use Types [...] Sex Assigned at Female 08/17/2018 7:56 AM SIGNALING PROJECT ENGINEER Legal Sex Female 4:24 AM SIGNALING PROJECT ENGINEER Gender Identity Female 08/17/2018 7:56 AM SIGNALING PROJECT ENGINEER Sexual Orientation Straight 08/17/2018 7: 56 AM SIGNALING PROJECT ENGINEER documented as of this encounter Plan of Treatment Upcoming Encounters Date Type Department Care Team (Late Contact Info) Description 09/07/2024 10:00 AM CDT Office Visit [facility] [address] [phone] Fransisco Eddy MD [address] [place] [address] 09/18/2024 2:00 PM CDT Virtual Visit [facility] [address] [place] [phone] Shanna Vang PA-C [address] [address] 03/29/2025 3:40 PM CDT Office Visit [address] [phone] Alfreda Ray PA-C [address] [place] [address] 674312 documented as of this encounter Visit Diagnoses Not on filedocumented in this encounter Additional Health Concerns Assessment Noted Time PHQ-9 Depression Total Score: 4 09/05/19 22 10:39 AM CDT documented as of this encounter Care Teams Burring Wheel Operator Relationship Specialty Start Date End Date Alfreda Ray PA-C [address] [place] [address] PCP - General Family Medicine 12/30/21 [place] [address] [place] [address] Assigned PCP 09/29/20 07/31/22 Alfreda Ray PA-C [address] [place] [address] Referring Physician Family Medicine 12/31/21 Katrin Orellana PA-C [address] [place] [address] 98 [place], [place] 948165 Physician Low Altitude Air Defense Gunner Dermatology 12/31/21 Shanna Vang PA-C [address] [place], [place] 066714 Assigned Cancer Care Provider 01/10/22 Fransisco Eddy MD [address] [place] [address] 217485 Assigned Rheumatology Provider 05/09/22 [place] [address] [place] [address] Assigned Pain Medication Provider 06/29/22 09/04/22 [place] [address] [place] [address] Assigned PCP 08/15/22 08/28/22 Katrin Orellana PA-C [address] [place] [address] 669005 Assigned Surgical Provider 08/15/22 02/10/24 Cristina Hsieh [facility] [address] [facility] [place] [address] Pharmacist Pharmacist 09/07/22 Alfreda Ray PA-C [address] [place] [address] 930872 Assigned Pain Medication Provider 09/05/22 09/10/23 Alfreda Ray PA-C [address] [place] [address] 392952 Assigned PCP 08/29/22 Cristina Hsieh [facility] [address] [place] [address] [phone] Assigned MTM Pharmacist 09/26/22 Dakota Tatum MD [address] [place] [address] 961215 Cardiovascular Disease 03/25/23 Dakota Tatum MD [address] [place] [address] Assigned Heart and Vascular Provider 05/01/23 [place] [address] [address] GASTELUM, [address] 558767 Assigned Musculoskeletal Provider 04/12/24 documented as of this encounter
--- OUTSIDE RECORDS SUMMARY | 2024-07-28 12:47 | XMS_ITS | Encounter Summary ---
Author Organization [facility] Address [address] [place] [address] Care Team Providers Care Relationship Counselor Name Role Phone Alfreda Ray PA-C Primary Care Provider + Alfreda Ray PA-C Unavailable [phone] Katrin Orellana PA-C Unavailable Shanna Vang-C Unavailable +[phone] Fransisco Eddy MD Unavailable [phone] Cristina Hsieh [facility] Unavailable Alfreda RayC Unavailable [phone] Cristina Hsieh [facility] Unavailable Dakota Tatum MD Unavailable Dakota Tatum MD Unavailable [phone] Srinivas Marie DO Unavailable [phone] Reason for Visit * Reason Onset Date Comments Referral 03/17/2024 Encounter Details Date Type Department Care Team (Late st Contact Info) Description 03/17/2024 Telephone [facility] [place] [address], [address] [place] [address] Nurse, Vein Referral Social History [...] re latives? Once a week 03/15/2024 Attends Restorationist Services Not on file 03/15 Active Member of Clubs or Organizations Not on f ile 03/15/2024 Attends Club or Organization Meetings Not on anu e 03/15/2024 Marital Status Not on file 03/15/2024 PHQ-2 Answer Date Recorded PHQ-2 Score 0 03/16/2024 [facility] [place] [facility] Occupat ional [facility] - Occupational Stress [...] Sex Assigned at Female 08/17/2018 7:56 AM UNDERWRITING MANAGER Legal Sex Female 4:24 AM UNDERWRITING MANAGER Gender Identity Female 08/17/2018 7:56 AM UNDERWRITING MANAGER Sexual Orientation Straight 08/17/2018 7: 56 AM UNDERWRITING MANAGER documented as of this encounter Miscellaneous Notes * Telephone Encounter - Briseyda Carmen CMA - 03/17/2024 8:24 AM CDT 03/17/24 LVM FOR PATIENT TO SCHEDULE CONSULT IN [place] documented in this encounter Plan of Treatment Upcoming Encounters Date Type Department Care Team (Late st Contact Info) Description 09/07/2024 10:00 AM CDT Office Visit [facility] [address] 200 [place] [phone] Fransisco Eddy MD [address] [place] [address] 88 [place], [place] 94[address] 09/18/2024 2:00 PM CDT Virtual Visit [facility] [address] [place] [address] 105 [place] [address] Shanna Vang, PA-C [address] [place] [address] 03/29/2025 3:40 PM CDT Office Visit [address] [phone] Alfreda Ray PA-C [address] [place] [address] 400922 documented as of this encounter Visit Diagnoses Not on filedocumented in this encounter Additional Health Concerns Assessment Noted Time PHQ-9 Depression Total Score: 5 03/09/20 23 10:57 AM CDT documented as of this encounter Care Teams Relationship Counselor Relationship Specialty Start Date End Date Alfreda Ray PA-C [address] [place] [address] PCP - General Family Medicine 12/30/21 Alfreda Ray PA-C [address] [place] [address] Referring Physician Family Medicine 12/31/21 Katrin Orellana PA-C [address] [place] [address] 98 [place] [address] Physician Technology Architect Dermatology 12/31/21 Shanna Vang PA-C [address] [place] [address] 844244 Assigned Cancer Care Provider 01/10/22 Fransisco Eddy MD [address] [place] [address] 88 [place], [place] 304775 Assigned Rheumatology Provider 05/09/22 Cristina Hsieh [facility] [address] [place] [address] Pharmacist Pharmacist 09/07/22 Alfreda Ray PA-C [address] [place] [address] Assigned PCP 08/29/22 Cristina Hsieh [facility] [address] [address] Assigned MTM Pharmacist 09/26/22 Dakota Tatum MD [address] [place] [address] Cardiovascular Disease 03/25/23 Dakota Tatum MD [address] [place] [address] 106685 Assigned Heart and Vascular Provider 05/01/23 [place] [address] [address] Assigned Musculoskeletal Provider 04/12/24 documented as of this encounter
--- OUTSIDE RECORDS SUMMARY | 2024-07-28 12:47 | XMS_ITS | Encounter Summary ---
Author Organization [place] Address [address] [place] [address] 22174 Care Team Providers Care Factory Helper Name Role Phone Esperanza Gatica MD Primary Care Provider + Esperanza Gatica MD Unavailable + Esperanza Gatica MD Unavailable + Esperanza Gatica MD Unavailable + Esperanza Gatica MD Unavailable + Esperanza Gatica MD Unavailable + Jesús Orourke MD Unavailable Alfreda Ray-C Primary Care Provider + Alfreda Ray-C Unavailable + [phone] Katrin OrellanaC Unavailable +[phone] Shanna Vang-C Unavailable +[phone] Fransisco Eddy MD Unavailable [phone] Esperanza Gatica MD Unavailable + Esperanza Gatica MD Unavailable + Katrin OrellanaC Unavailable +[phone] Cristina Hsieh [facility] Unavailable +[phone] Alfreda Ray PA-C Unavailable +[phone] Alfreda Ray PA-C Unavailable +[phone] Cristina Hsihe [facility] Unavailable +[phone] Dakota Tatum MD Unavailable +[phone] Dakota Tatum MD Unavailable [phone] Srinivas Marie DO Unavailable [phone] Reason for Visit * Reason Onset Date Comments Refill Request 08/01/2019 Encounter Details Date Type Department Care Team (Late st Contact Info) Description 08/01/2019 MyC Refill [address], [address] [place] [address] [place] [address] [place] [address] Refill Request Social History Tobacco [...] Assigned at Female 08/17/2018 7:56 AM COMMERCIAL PRODUCTION EDITOR Legal Sex Female 4:24 AM COMMERCIAL PRODUCTION EDITOR Gender Identity Female 08/17/2018 7:56 AM COMMERCIAL PRODUCTION EDITOR Sexual Orientation Straight 08/17/2018 7: 56 AM COMMERCIAL PRODUCTION EDITOR documented as of this encounter Miscellaneous Notes [...] AM CDT PHYSICAL with Esperanza Gatica MD [facility] ([facility], [address] [facility] [address] Requested Prescriptions Pending Prescriptions Disp Refills [...] [facility] refill protocol ERCIAL PRODUCTION EDITOR documented in this encounter Plan of Treatment Upcoming Encounters Date Type Department Care Team ([facility] st Contact Info) Description 09/07/2024 10:00 AM CDT Office Visit [facility] [address] [address] Fransisco Eddy MD [address] [place] [address] 88 [place] [address] 09/18/2024 2:00 PM CDT Virtual Visit [facility]ot[facility] [address] [place] [address] Shanna Vang, PA-C [address] [address] 03/29/2025 3:40 PM CDT Office Visit [address] [place] [address] Alfreda Ray PA-C [address] [place] [address] 487462 documented as of this encounter Visit Diagnoses Diagnosis Insomnia, unspecified type Primary osteoarthritis involving multiple joints documented in this encounter Additional Health Concerns Infection Onset Date Last Indicated Resolved Time Rule Out COVID-19 05/08/2021 05/08/2021 05/09/2021 9:08 PM COMMERCIAL PRODUCTION EDITOR Assessment Noted Time PHQ-9 Depression Total Score: 1 08/20/19 19 1:44 PM COMMERCIAL PRODUCTION EDITOR documented as of this encounter Care Teams Factory Helper Relationship Specialty Start Date End Date Esperanza Gatica MD PCP - General Family Practice 10/13/11 12/29/21 Alfreda Ray PA-C [address] [place] [address] PCP - General Family Medicine 12/30/21 [place] [address] LISBETH GARCIA [address] Assigned PCP 12/05/17 09/30/19 [place] [address] [address] GARCIA [address]4911 Assigned PCP 10/01/19 03/02/20 [place] [address] LISB[address] GARCIA 02114 Assigned PCP 03/03/20 05/25/20 [place] [address] LISB[address] GARCIA 83458 Assigned PCP 05/26/20 09/28/20 [place] [address] LISBETH GARCIA [address]87 Assigned PCP 09/29/20 07/31/22 Jesú[place] [address] [place] [address] [address] Assigned Musculoskeletal Provider 10/20/20 04/17/22 Alfreda Ray PA-C [address] [place] [address] [phone] Referring Physician Family Medicine 12/31/21 Katrin Orellana PA-C [address] [place] [address] 112345 Physician Fingerprint Expert Dermatology 12/31/21 Shanna Vang PA-C [address] [place] [address] 155314 Assigned Cancer Care Provider 01/10/22 Fransisco Eddy MD [address] [place] [address] 587425 Assigned Rheumatology Provider 05/09/22 [place] [address] [address]IS[address] GARCIA [address] Assigned Pain Medication Provider 06/29/22 09/04/22 [place] [address] LISB[address] GRACIA 99282 Assigned PCP 08/15/22 08/28/22 Katrin Orellana PA-C [address] [place] [address] [id number] Assigned Surgical Provider 08/15/22 02/10/24 Cristina Hsieh [facility] [address] [facility] LISBETH HERNANDEZ [address] Pharmacist Pharmacist 09/07/22 Alfreda Ray PA-C [address] [place] [address] 267742 Assigned Pain Medication Provider 09/05/22 09/10/23 Alfreda Ray PA-C [address] [place] [address] 926742 Assigned PCP 08/29/22 Cristina Hsieh [facility] [address] [place] [address] Assigned MTM Pharmacist 09/26/22 Dakota Tatum MD [address] [place] [address]852 Cardiovascular Disease 03/25/23 Dakota Tatum MD [address] [place] [address] Assigned Heart and Vascular Provider 05/01/23 [place] [address] [address] Assigned Musculoskeletal Provider 04/12/24 documented as of this encounter
--- OUTSIDE RECORDS SUMMARY | 2024-07-28 12:47 | XMS_ITS | Encounter Summary ---
Author Organization [place] Address [address] [place] [address]71 Care Team Providers Care Sound Ranging Crewmember Name Role Phone Esperanza Gatica MD Primary Care Provider + Esperanza Gatica MD Unavailable + Esperanza Gatica MD Unavailable + Esperanza Gatica MD Unavailable + Esperanza Gatica MD Unavailable + Esperanza Gatica MD Unavailable + Jesús Orourke MD Unavailable Alfreda Ray-C Primary Care Provider + Alfreda Ray-C Unavailable + [phone] Katrin OrellanaC Unavailable +[phone] Shanna Vang-C Unavailable +[phone] Fransisco Eddy MD Unavailable [phone] Esperanza Gaitca MD Unavailable + Esperanza Gatica MD Unavailable + Katrin OrellanaC Unavailable +[phone] Cristina Hsieh [facility] Unavailable +[phone] Alfreda Ray PA-C Unavailable Alfreda Ray PA-C Unavailable MelissaCristina shields Martin [facility] Unavailable +[phone] Dakota Tatum MD Unavailable [phone] Dakota Tatum MD Unavailable [phone] CynthiaSrinivas gaytan Unavailable [phone] Encounter Details Date Type Department Care Team (Late st Contact Info) Description 08/01/2019 MyC Medical Advice [address], [address] [place] [address] Chitra López Social History Tobacco [...] Sex Assigned at Female 08/17/2018 7:56 AM WATCH ENGINE OPERATOR Legal Sex Female 4:24 AM WATCH ENGINE OPERATOR Gender Identity Female 08/17/2018 7:56 AM WATCH ENGINE OPERATOR Sexual Orientation Straight 08/17/2018 7: 56 AM WATCH ENGINE OPERATOR documented as of this encounter Plan of Treatment Upcoming Encounters Date Type Department Care Team (Late Contact Info) Description 09/07/2024 10:00 AM CDT Office Visit [facility] [address] 200 [place] [phone] Fransisco Eddy MD [address] [place] [address] 88 [place] [address] 09/18/2024 2:00 PM CDT Virtual Visit [facility] for Bleeding [facility] Clotting Disorders [facility] [facility] 105 [place] [address] Shanna Vang PA-C [address] [place] [address] 03/29/2025 3:40 PM CDT Office Visit [address] [address] Alfreda Ray PA-C [address] [place] [address] documented as of this encounter Visit Diagnoses Not on filedocumented in this encounter Additional Health Concerns Infection Onset Date Last Indicated Resolved Time Rule Out COVID-19 05/08/2021 05/08/2021 05/09/2021 9:08 PM WATCH ENGINE OPERATOR Assessment Noted Time PHQ-9 Depression Total Score: 1 08/20/19 19 1:44 PM WATCH ENGINE OPERATOR documented as of this encounter Care Teams Sound Ranging Crewmember Relationship Specialty Start Date End Date Esperanza Gatica MD PCP - General Family Practice 10/13/11 12/29/21 Alfreda Ray PA-C [address] [place] [address] PCP - General Family Medicine 12/30/21 [place] [address] LISB[address] GARCIA 25374 Assigned PCP 12/05/17 09/30/19 [place] [address] L[address] GARCIA 73410 Assigned PCP 10/01/19 03/02/20 [place] [address] LISB[address] GARCIA 06471 Assigned PCP 03/03/20 05/25/20 [place] [address] [place] [address] Assigned PCP 05/26/20 09/28/20 [place] [address] [place] [address] Assigned PCP 09/29/20 07/31/22 Jesú[place] [address] [place] [address] [address] Assigned Musculoskeletal Provider 10/20/20 04/17/22 Alfreda Ray PA-C [address] [place] [address] Referring Physician Family Medicine 12/31/21 Katrin Orellana PA-C [address] [place] [address] 949955 Physician Painter Plate Dermatology 12/31/21 Shanna Vang PA-C [facility] [address] Assigned Cancer Care Provider 01/10/22 Fransisco Eddy MD [address] [place] [address] 113525 Assigned Rheumatology Provider 05/09/22 [place] [address] [place] [address] Assigned Pain Medication Provider 06/29/22 09/04/22 [place] [address] [place] [address] Assigned PCP 08/15/22 08/28/22 Katrin Orellana PA-C [address] [place] [address]27 Assigned Surgical Provider 08/15/22 02/10/24 Cristina Hsieh [facility] [address] [place] [address] [place] [address] Pharmacist Pharmacist 09/07/22 Alfreda Ray PA-C [address] [place] [address]1926 Assigned Pain Medication Provider 09/05/22 09/10/23 Alfreda Ray PA-C [address] [place] [address]39[address] Assigned PCP 08/29/22 Cristina Hsieh [facility] [address] [address] Assigned MTM Pharmacist 09/26/22 Dakota Tatum MD [address] [place] [address] Cardiovascular Disease 03/25/23 Dakota Tatum MD [address] [place] [address]2897 Assigned Heart and Vascular Provider 05/01/23 [place] [address] [address], [address] [place] [address] Assigned Musculoskeletal Provider 04/12/24 documented as of this encounter
--- OUTSIDE RECORDS SUMMARY | 2024-07-28 12:48 | XMS_ITS | Encounter Summary ---
Author Organization [place] Address [address] [place] [address] Care Team Providers Care Steel Plate Caulker Name Role Phone Alfreda Ray PA-C Primary Care Provider + Alfreda Ray PA-C Unavailable [phone] Katrin Orellana PA-C Unavailable Shanna Vang-C Unavailable [phone] Fransisco Eddy MD Unavailable +[phone] Cristina Hsieh [facility] Unavailable +[phone] Alfreda Ray PA-C Unavailable +[phone] Cristina Hsieh [facility] Unavailable [phone] Dakota Tatum MD Unavailable + [phone] Dakota Tatum MD Unavailable [phone] Srinivas Marie DO Unavailable [phone] Encounter Details Date Type Department Care [...] re latives? Once a week 03/15/2024 Attends Religion Services Not on file 03/15 Active Member of Clubs or Organizations Not on f ile 03/15/2024 Attends Club or Organization Meetings Not on anu e 03/15/2024 Marital Status Not on file 03/15/2024 PHQ-2 Answer Date Recorded PHQ-2 Score 0 03/16/2024 [facility] Occupat ional Health - Occupational Stress [...] Sex Assigned at Female 08/17/2018 7:56 AM MARINE MAMMAL TRAINER Legal Sex Female 4:24 AM MARINE MAMMAL TRAINER Gender Identity Female 08/17/2018 7:56 AM MARINE MAMMAL TRAINER Sexual Orientation Straight 08/17/2018 7: 56 AM MARINE MAMMAL TRAINER documented as of this encounter Plan of Treatment Upcoming Encounters Date Type Department Care Team (Late st Contact Info) Description 09/07/2024 10:00 AM CDT Office Visit [facility] [address] [phone] Fransisco Eddy MD [address] [place] [address] 09/18/2024 2:00 PM CDT Virtual Visit [facility] Center for Bleeding and Clotting Disorders [facility] [place] [address] 105 [place] [address] Shanna Vang PA-C [address] 937944 03/29/2025 3:40 PM CDT Office Visit [address] [place] [phone] Alfreda Ray PA-C [address] [place] [address] 976542 documented as of this encounter Visit Diagnoses Not on filedocumented in this encounter Additional Health Concerns Assessment Noted Time PHQ-9 Depression Total Score: 5 03/09/20 10:57 AM CDT documented as of this encounter Care Teams Steel Plate Caulker Relationship Specialty Start Date End Date Alfreda Ray PA-C [address] [place] [address] PCP - General Family Medicine 12/30/21 Alfreda Ray PA-C [address] [place] [address]88 Referring Physician Family Medicine 12/31/21 Katrin Orellana PA-C [address] [place] [address] Physician Continuous Drier Helper Dermatology 12/31/21 Shanna Vang PA-C [facility]2 [address] [place] [address] Assigned Cancer Care Provider 01/10/22 Fransisco Eddy MD [address] [place] [address] Assigned Rheumatology Provider 05/09/22 Cristina Hsieh [facility] [address] [facility] LISBETH HERNANDEZ [address] Pharmacist Pharmacist 09/07/22 Alfreda Ray PA-C [address] [place] [address] Assigned PCP 08/29/22 Cristina Hsieh [facility] [address] [id number] Assigned MTM Pharmacist 09/26/22 Dakota Tatum MD 6 [place] [address] Cardiovascular Disease 03/25/23 Dakota Tatum MD 6 [place] [address] Assigned Heart and Vascular Provider 05/01/23 [place] [address] [facility], [address] [address] Assigned Musculoskeletal Provider 04/12/24 documented as of this encounter
--- OUTSIDE RECORDS SUMMARY | 2024-07-28 12:48 | XMS_ITS | Encounter Summary ---
Author Organization [place] Address [address] [place] [address]908 Care Team Providers Care Gang Knife Fish Chopper Name Role Phone Alfreda Ray PA-C Primary Care Provider + Alfreda Ray PA-C Unavailable [phone] Katrin Orellana PA-C Unavailable Shanna Vang PA-C Unavailable [phone] Fransisco Eddy MD Unavailable [phone] Cristina Hsieh [facility] Unavailable Alfreda Ray PA-C Unavailable Cristina Hsieh [facility] Unavailable Dakota Tatum MD Unavailable [phone] Dakota Tatum MD Unavailable [phone] Srinivas Marie DO Unavailable [phone] Encounter Details Date Type Department Care Team (Late st Contact Info) Description 06/07/2024 MyC Medical Advice [address] [address] Alfreda Ray PA-C [address] [place] [address] Social History Tobacco Use Types Packs/Day [...] re latives? Once a week 03/15/2024 Attends Zoroastrianism Services Not on file 03/15 Active Member of Clubs or Organizations Not on f ile 03/15/2024 Attends Club or Organization Meetings Not on anu e 03/15/2024 Marital Status Not on file 03/15/2024 PHQ-2 Answer Date Recorded PHQ-2 Score 0 03/16/2024 [facility] of Occupat ional Health - Occupational Stress [...] Sex Assigned at Female 08/17/2018 7:56 AM MARKER ASSEMBLER Legal Sex Female 4:24 AM MARKER ASSEMBLER Gender Identity Female 08/17/2018 7:56 AM MARKER ASSEMBLER Sexual Orientation Straight 08/17/2018 7: 56 AM MARKER ASSEMBLER documented as of this encounter Plan of Treatment Upcoming Encounters Date Type Department Care Team (Late st Contact Info) Description 09/07/2024 10:00 AM CDT Office Visit [facility] [address] 200 [place] [phone] Fransisco Eddy MD [address] [place] [address] 874095 09/18/2024 2:00 PM CDT Virtual Visit [facility] for Ble[facility] Clotting Disorders [address] [place] [address] 105 [place] [address] Shanna Vang, PAFilemonC [address] [place] [address] 03/29/2025 3:40 PM CDT Office Visit [address] [phone] Alfreda Ray PA-C [address] [place] [address] 741502 documented as of this encounter Visit Diagnoses Not on filedocumented in this encounter Additional Health Concerns Assessment Noted Time PHQ-9 Depression Total Score: 5 03/09/20 23 10:57 AM CDT documented as of this encounter Care Teams Gang Knife Fish Chopper Relationship Specialty Start Date End Date Alfreda Ray PA-C [address] [place] [address] PCP - General Family Medicine 12/30/21 Alfreda Ray PA-C [address] [place] [address] Referring Physician Family Medicine 12/31/21 Katrin Orellana PA-C [address] [place] [address] 98 [place], [place] [phone] Physician Automotive Airconditioning Mechanic Dermatology 12/31/21 Shanna Vang PA-C [address] [place], [place] 129714 Assigned Cancer Care Provider 01/10/22 Fransisco Eddy MD [address] [place] [address] 88 [place], [place] 872545 Assigned Rheumatology Provider 05/09/22 Cristina Hsieh [facility] [address] [place] [address] [place] [address] Pharmacist Pharmacist 09/07/22 Alfreda Ray PA-C [address] [place] [address] [place] [address] Assigned PCP 08/29/22 Cristina Hsieh, [facility] [address] [address] Assigned MTM Pharmacist 09/26/22 Dakota Tatum MD [address] [place] [address] Cardiovascular Disease 03/25/23 Dakota Tatum MD [address] [place] [address] Assigned Heart and Vascular Provider 05/01/23 [place] [address] CE[address]AST[address]UM, [facility] [address] [place] [address] Assigned Musculoskeletal Provider 04/12/24 documented as of this encounter
--- OUTSIDE RECORDS SUMMARY | 2024-07-28 12:48 | XMS_ITS | Encounter Summary ---
Author Organization [place] Address [address] [place] [address] Care Team Providers Care Staff Educator Name Role Phone Ajay Dailey MD Primary Care Provider [phone] Esperanza Gatica MD Primary Care Provider + Esperanza Gatica MD Unavailable + Esperanza Gatica MD Unavailable + Esperanza Gatica MD Unavailable + Esperanza Gatica MD Unavailable + Esperanza Gatica MD Unavailable + Esperanza Gatica MD Unavailable [phone] Jesús Orourke MD Unavailable Alfreda RayC Primary Care Provider + Alfreda Ray-Gallito Unavailable +[phone] Katrin Orellana PA-C Unavailable Shanna Vang-C Unavailable +[phone] Fransisco Eddy MD Unavailable [phone] Esperanza Gatica MD Unavailable +[phone] Esperanza Gatica MD Unavailable +[phone] Katrin Orellana PA-C Unavailable Cristina Hsieh [facility] Unavailable [phone] Cory Alfreda Liu PA-C Unavailable + [phone] Cory Alfreda Liu PA-C Unavailable [phone] Cristina Hsieh [facility] Unavailable [phone] Dakota Tatum MD Unavailable [phone] Dakota Tatum MD Unavailable [phone] Srinivas Marie DO Unavailable [phone] Reason for Visit * Reason Onset Date Comments Refill Request 02/26/2011 Encounter Details Date Type Department Care Team (Late st Contact Info) Description 02/26/[address] [address] Alfa Marcelo MD [facility] [address] [facility] 200 [place] [address] Refill Request Social History Tobacco Use Types Packs/Day Years Used Date Smoking Tobacco: Former Cigarettes Q uit: 06/21/1973 Smokeless Tobacco: Never Alcohol Use Standard Drinks/Week Comments Yes 0 (1 standard drink = 0.6 oz pur e alcohol) rarely Comments No Sex and Gender Information Value Date Recorded Sex Assigned at Female 08/17/2018 7:56 AM DOOR HANGER Legal Sex Female 4:24 AM DOOR HANGER Gender Identity Female 08/17/2018 7:56 AM DOOR HANGER Sexual Orientation Straight 08/17/2018 7: 56 AM DOOR HANGER documented as of this encounter Miscellaneous Notes * Telephone Encounter - Selin Magi - 02/26/2011 3:04 PM CDTMessage from [place]: Original authorizing provider: Alfa Bradshaw would like a refill of the following medications: tramadol (ULTRAM) 50 MG tablet [Alfa Marcelo MD] Preferred pharmacy: [facility] Comment: Please note [address] Marcelo documented in this encounter Plan of Treatment Upcoming Encounters Date Type Department Care Team (Late st Contact Info) Description 09/07/2024 10:00 AM CDT Office Visit [facility] [place] [address] [facility] 200 [place] [address] Fransisco Eddy MD [address] [place] [address] 88 [place] [address] 09/18/2024 2:00 PM CDT Virtual Visit [facility] for Bleeding and Clotting Disorders [facility] [address] 105 [place] [phone] Shanna Vang, PARobinson [address] 166414 03/29/2025 3:40 PM CDT Office Visit [address] [phone] Alfreda Ray, FERNANDO [address] [place] [address] 046152 documented as of this encounter Visit Diagnoses Diagnosis DJD (degenerative joint disease) of knee Osteoarthrosis, unspecified whether generalized or localized, lower leg documented in this encounter Additional Health Concerns Infection Onset Date Last Indicated Resolved Time Rule Out COVID-19 05/08/2021 05/08/2021 05/09/2021 9:08 PM DOOR HANGER documented as of this encounter Care Teams Staff Educator Relationship Specialty Start Date End Date Ajay Dailey MD PCP - General Family Practice 01/29/11 10/12/11 Esperanza Gatica MD PCP - General Family Practice 10/13/11 12/29/21 [place] [address] [place] [address] PCP - Assigned PCP 12/05/17 08/23/18 Alfreda Ray PA-C [address] [place] [address]681 PCP - General Family Medicine 12/30/21 [place] [address] [place] [address] Assigned PCP 12/05/17 09/30/19 [place] [address] [place] [address] Assigned PCP 10/01/19 03/02/20 [place] [address] [place] [address] Assigned PCP 03/03/20 05/25/20 [place] [address] [place] [address] Assigned PCP 05/26/20 09/28/20 [place] [address] [place] [address] Assigned PCP 09/29/20 07/31/22 Jesú[place] [address] [place] [address] Assigned Musculoskeletal Provider 10/20/20 04/17/22 Alfreda Ray PA-C [address] [place] [address] [id number] Referring Physician Family Medicine 12/31/21 Katrin Orellana PA-C [address] [place] [address] 375695 Physician Integrity Analyst Dermatology 12/31/21 Shanna Vang PA-C [address] [place] [address] 977924 Assigned Cancer Care Provider 01/10/22 Fransisco Eddy MD [address] [place] [address] 486725 Assigned Rheumatology Provider 05/09/22 [place] [address] [facility] [address] Assigned Pain Medication Provider 06/29/22 09/04/22 [place] [address] [place] [address] Assigned PCP 08/15/22 08/28/22 Katrin Orellana PA-C [address] [place] [address] 271625 Assigned Surgical Provider 08/15/22 02/10/24 Cristina Hsieh [facility] [address] [facility] [place] [address] Pharmacist Pharmacist 09/07/22 Alfreda Ray PA-C [address] [place] [address] Assigned Pain Medication Provider 09/05/22 09/10/23 Alfreda Ray PA-C [address] [place] [address]34[address] Assigned PCP 08/29/22 Cristina Hsieh, [facility] [address] [address] Assigned MTM Pharmacist 09/26/22 Dakota Tatum MD [address] [place] [address] Cardiovascular Disease 03/25/23 Dakota Ttaum MD [address] [place] [address] 357[address] Assigned Heart and Vascular Provider 05/01/23 [place] [address] [address]AST[address]UM, [facility] 300 [place] [address] Assigned Musculoskeletal Provider 04/12/24 documented as of this encounter
--- OUTSIDE RECORDS SUMMARY | 2024-07-28 12:48 | XMS_ITS | Encounter Summary ---
Author Organization Lane Address [address] [place] [address] Care Team Providers Care Hardware Supplies Sales Representative Name Role Phone Alfreda Ray PA-C Primary Care Provider + Alfreda Ray PA-C Unavailable [phone] Katrin Orellana PA-C Unavailable Shanna Vang PA-C Unavailable [phone] Fransisco Eddy MD Unavailable Cristina Hsieh [facility] Unavailable Alfreda Ray PA-C Unavailable Cristina Hsieh [facility] Unavailable Dakota Tatum MD Unavailable [phone] Dakota Tatum MD Unavailable [phone] Srinivas Marie DO Unavailable [phone] Encounter Details Date Type Department Care Team (Late st Contact Info) Description 06/17/2024 [facility] [address] [place] [phone] Yamile James PA-C [address] [place] [address] [phone] Complicated UTI (urinary tract infection) (Primary Dx) [...] re latives? Once a week 03/15/2024 Attends Spiritism Services Not on file 03/15 Active Member of Clubs or Organizations Not on f ile 03/15/2024 Attends Club or Organization Meetings Not on anu e 03/15/2024 Marital Status Not on file 03/15/2024 PHQ-2 Answer Date Recorded PHQ-2 Score 0 03/16/2024 [facility] [place] [facility] Occupat ional Health - Occupational Stress [...] Sex Assigned at Female 08/17/2018 7:56 AM GRANITE POLISHER MACHINE Legal Sex Female 4:24 AM GRANITE POLISHER MACHINE Gender Identity Female 08/17/2018 7:56 AM GRANITE POLISHER MACHINE Sexual Orientation Straight 08/17/2018 7: 56 AM GRANITE POLISHER MACHINE documented as of this encounter Plan of Treatment Upcoming Encounters Date Type Department Care Team (Late st Contact Info) Description 09/07/2024 10:00 AM CDT Office Visit [facility] [address] [place] [phone] Fransisco Eddy MD [address] [place] [address] [phone] 09/18/2024 2:00 PM CDT Virtual Visit [facility] [place] [address] [address] [place] [phone] Shanna Vang PA-C [address] [address] 03/29/2025 3:40 PM CDT Office Visit [address] [place] [phone] Alfreda Ray PA-C [address] [place] [address] 679112 documented as of this encounter Visit Diagnoses Diagnosis Complicated UTI (urinary tract infection)- Primary Urinary tract infection, site not specified documented in this encounter Additional Health Concerns Assessment Noted Time PHQ-9 Depression Total Score: 5 03/09/20 23 10:57 AM CDT documented as of this encounter Care Teams Hardware Supplies Sales Representative Relationship Specialty Start Date End Date Alfreda Ray PA-C [address] [place] [address] [phone] PCP - General Family Medicine 12/30/21 Alfreda Ray PA-C [address] [place] [address] 267472 Referring Physician Family Medicine 12/31/21 Katrin Orellana PA-C [address] [place] [address] 98 [place], [place] [phone] Physician Components Engineer Dermatology 12/31/21 Shanna Vang PA-C [address] [place], [place] [phone] Assigned Cancer Care Provider 01/10/22 Fransisco Eddy MD [address] [place] [address] 88 [place], [place] [phone] Assigned Rheumatology Provider 05/09/22 Cristina Hsieh, [facility] [address] [place] [address] LISBETH HERNANDEZ [address] Pharmacist Pharmacist 09/07/22 Alfreda Ray PA-C [address] [place] [address] Assigned PCP 08/29/22 Cristina Hsieh, [facility] [address] [facility] 101 [place] [address] Assigned MTM Pharmacist 09/26/22 Dakota Tatum MD [address] [place] [address] Cardiovascular Disease 03/25/23 Dakota Tatum MD [address] [place] [address] Assigned Heart and Vascular Provider 05/01/23 [place] [address] [place] , [facility] [address] [place] [address] Assigned Musculoskeletal Provider 04/12/24 documented as of this encounter
--- OUTSIDE RECORDS SUMMARY | 2024-07-28 12:48 | XMS_ITS | Encounter Summary ---
Author Organization [facility] Address [address] [place] [address] Care Team Providers Care Design Engineer Name Role Phone Alfreda Ray PA-C Primary Care Provider + Alfreda Ray PA-C Unavailable [phone] Katrin Orellana PA-C Unavailable [phone] Shanna Vang PA-C Unavailable [phone] Fransisco Eddy MD Unavailable [phone] Cristina Hsieh [facility] Unavailable [phone] Alfreda Ray PA-C Unavailable [phone] Cristina Hsieh [facility] Unavailable [phone] Dakota Tatum MD Unavailable [phone] Dakota Tatum MD Unavailable [phone] Srinivas Marie DO Unavailable [phone] Reason for Referral * Clinically Administered Medications (Routine) - Closed Specialty Diagnoses / Procedures Referred By Sharlene kessler Referred To Contact Diagnoses Complicated UTI (urinary tract infection) Procedures ZZC CEFTRIAXONE NA INJ /250MG Yamile James PA-C [address] [place] [address] Phone: tel: fax: Referral ID Status Reason Start Date Expiration Date Visits Re quested Visits Authorized [id number] Closed 06/15/2024 06/15/2025 1 1 ESS MECHANIC Reason for Visit * Reason Comments Urgent Care Urinary problem x 2 day, pain with urination,burning sensation, frequency,back pain, * Clinically Administered Medications (Routine) - Closed Specialty Diagnoses / Procedures Referred By Contac t Referred To Contact Diagnoses Complicated UTI (urinary tract infection) Procedures ZZC CEFTRIAXONE NA INJ /250MG Yamile James PA-C [address] [place] [address] Phone: tel: fax: Referral ID Status Reason Start Date Expiration Date Visits Re quested Visits Authorized [id number] Closed 06/15/2024 06/15/2025 1 1 Encounter Details Date Type Department Care Team (Late st Contact Info) Description 06/15/2024 2:05 PM PROCESS MECHANIC Office Visit [facility] [place] [address] [place] [address] Yamile James PA-C [address] [place] [phone] Complicated UTI (urinary tract infection) (Primary Dx); [...] re latives? Once a week 03/15/2024 Attends Anabaptist Services Not on file 03/15 Active Member of Clubs or Organizations Not on f ile 03/15/2024 Attends Club or Organization Meetings Not on anu e 03/15/2024 Marital Status Not on file 03/15/2024 PHQ-2 Answer Date Recorded PHQ-2 Score 0 03/16/2024 [facility] Occupat ional [facility] - Occupational Stress Questionnaire Answer Date [...] in an overnight retirement, or couch-surfing.) Yes 03/15/2024 Are you worried [...] Assigned at Female 08/17/2018 7:56 AM PROCESS MECHANIC Legal Sex Female 4:24 AM PROCESS MECHANIC Gender Identity Female 08/17/2018 7:56 AM PROCESS MECHANIC Sexual Orientation Straight 08/17/2018 7: 56 AM PROCESS MECHANIC documented as of this encounter Last Filed Vital Signs Vital Sign Reading Time Taken Comments Blood Pressure 136/70 06/15/2024 6:10 PM PROCESS MECHANIC Pulse 64 06/15/2024 4:35 PM PROCESS MECHANIC Temperature 36.8 C (98.2 F) 06/15/2024 4:35 PM PROCESS MECHANIC Respiratory Rate 18 06/15/2024 4:35 PM PROCESS MECHANIC Oxygen Saturation 97% 06/15/2024 4:35 PM PROCESS MECHANIC Inhaled Oxygen Concentration - - Weight 94.3 kg (208 lb) 06/15/2024 4:35 PM PROCESS MECHANIC Height - - Body Mass Index 38.04 05/04/2024 12:20 PM PROCESS MECHANIC documented in this encounter Patient Instructions * Patient Instructions* Yamile James PA-C - 06/15/2024 2:05 PM PROCESS MECHANIC You are being treated for kidney infection (complicated urinary tract infection) Take the medication prescribed as indicated Will follow-up if we need to change medication when urine culture results come back Follow-up in the emergency room if symptoms worsen any hour ESS MECHANIC ESS MECHANIC ESS MECHANIC * Attachments The following attachments cannot be sent through Care Everywhere. * Pyelonephritis (Bhutanese) documented in this encounter Progress Notes * [...] Ketones Urine 15 (A) Negative mg/dL Specific [place] Urine >=1.030 1.003 - 1.035 Blood Urine [...] Status --------- ------ CBC with platelets and d...[[id number]] Abnormal Final result Please view results for [...] factor (H) - Dr. Fransisco Eddy @ [facility] - on Humira & hydroxychloroquine 2022-08: Family [...] normal. Behavior: Behavior normal. Yamile James PA-C ESS MECHANIC documented in this encounter Plan of Treatment Upcoming Encounters Date Type Department Care Team (Late st Contact Info) Description 09/07/2024 10:00 AM CDT Office Visit [facility] [address] [place] [phone] Fransisco Eddy MD [address] [place] [address] 88 [place] [address] 09/18/2024 2:00 PM CDT Virtual Visit [facility] [address] [place] [address] 105 [place] [address] Shanna Vang PA-C [address] [place] [address] 670754 03/29/2025 3:40 PM CDT Office Visit [address] [phone] Alfreda Ray PA-C [address] [place] [address] [phone] documented as of this encounter Procedures Procedure Name Priority Date/Time Associated Diagnosis Comments CBC WITH PLATELETS AND DIFFERENTIAL STAT 06/15/2024 5:14 PM PROCESS MECHANIC Flank pain CBC WITH PLATELETS & DIFFERENTIAL STAT 06/15/2024 5:14 PM PROCESS MECHANIC Flank pain CRP INFLAMMATION STAT 06/15/2024 5:14 PM PROCESS MECHANIC Flank pain BASIC METABOLIC PANEL STAT 06/15/2024 5:14 PM PROCESS MECHANIC Flank pain UA MACROSCOPIC WITH REFLEX TO MICRO AND CULTURE Routine 06/15/2024 2:15 PM PROCESS MECHANIC Dysuria URINE MICROSCOPIC EXAM Routine 06/15/2024 2:15 PM PROCESS MECHANIC Dysuria URINE CULTURE Routine 06/15/2024 2:15 PM PROCESS MECHANIC Dysuria documented in this encounter Results * (ABNORMAL) CBC with platelets and differential (06/15/2024 5:14 PM PROCESS MECHANIC) WBC Count 5.3 4.0 - 11.0 10e3/uL 06/15/2024 5:37 PM PROCESS MECHANIC [facility] RBC Count 3.23(L) 3.80 - 5.20 10e6/uL 06/15/2024 5:37 PM PROCESS MECHANIC [facility] Hemoglobin 10.9(L) 11.7 - 15.7 g/dL 06/15/2024 5:37 PM PROCESS MECHANIC [facility] Hematocrit 34.2(L) 35.0 - 47.0 % 06/15/2024 5:37 PM PROCESS MECHANIC [facility] MCV 106(H) 78 - 100 fL 06/15/2024 5:37 PM PROCESS MECHANIC [facility] MCH 33.7(H) 26.5 - 33.0 pg 06/15/2024 5:37 PM PROCESS MECHANIC [facility] MCHC 31.9 31.5 - 36.5 g/dL 06/15/2024 5:37 PM PROCESS MECHANIC [facility] RDW 13.3 10.0 - 15.0 % 06/15/2024 5:37 PM PROCESS MECHANIC [facility] Platelet Count 302 150 - 450 10e3/uL 06/15/2024 5:37 PM PROCESS MECHANIC [facility] % Neutrophils 65 % 06/15/2024 5:37 PM PROCESS MECHANIC [facility] % Lymphocytes 26 % 06/15/2024 5:37 PM PROCESS MECHANIC [facility] % Monocytes 8 % 06/15/2024 5:37 PM PROCESS MECHANIC [facility] % Eosinophils 0 % 06/15/2024 5:37 PM PROCESS MECHANIC [facility] % Basophils 0 % 06/15/2024 5:37 PM PROCESS MECHANIC [facility] % Immature Granulocytes 1 % 06/15/2024 5:37 PM PROCESS MECHANIC [facility] Absolute Neutrophils 3.4 1.6 - 8.3 10e3/uL 06/15/2024 5:37 PM PROCESS MECHANIC [facility] Absolute Lymphocytes 1.4 0.8 - 5.3 10e3/uL 06/15/2024 5:37 PM PROCESS MECHANIC [facility] Absolute Monocytes 0.4 0.0 - 1.3 10e3/uL 06/15/2024 5:37 PM PROCESS MECHANIC [facility] Absolute Eosinophils 0.0 0.0 - 0.7 10e3/uL 06/15/2024 5:37 PM PROCESS MECHANIC [facility] Absolute Basophils 0.0 0.0 - 0.2 10e3/uL 06/15/2024 5:37 PM PROCESS MECHANIC [facility] Absolute Immature Granulocytes 0.0 <=0.4 10e3/uL 06/15/2024 5:37 PM PROCESS MECHANIC [facility] Blood BLOOD SPECIMEN / Unknown Venipuncture / Unknown 06/15/2024 5:14 PM PROCESS MECHANIC 06/15/2024 5:14 PM PROCESS MECHANIC us Yamile James PA-C LAB - BLOOD ORDERABLES Final R esult LABORATORY [facility] [address] [facility] (no room number, 1st floor of clinic) [place] [address], [facility] * (ABNORMAL) Basic metabolic panel (06/15/2024 5:14 PM PROCESS MECHANIC) Sodium 143 135 - 145 mmol/L 06/15/2024 7:09 PM [facility] Potassium 4.6 3.4 - 5.3 mmol/L 06/15/2024 7:09 PM [facility] Chloride 106 98 - 107 mmol/L 06/15/2024 7:09 PM [facility] Carbon Dioxide (CO2) 26 22 - 29 mmol/L 06/15/2024 7:09 PM [facility] Anion Gap 11 7 - 15 mmol/L 06/15/2024 7:09 PM [facility] Urea Nitrogen 26.3(H) 8.0 - 23.0 mg/dL 06/15/2024 7:09 PM [facility] Creatinine 1.18(H) 0.51 - 0.95 mg/dL 06/15/2024 7:09 PM PROCESS MECHANIC LABORATORY GFR Estimate 46(L) >60 mL/min/1.7 3m2 06/15/2024 7:09 PM PROCESS MECHANIC [facility] Comment:eGFR calculated usin 2020 CKD-EPI equation. Calcium 9.8 8.8 - 10.4 mg/dL 06/15/2024 7:09 PM PROCESS MECHANIC [facility] Comment:Reference intervals for this test were updated on 01/04/2024 to reflect our healthy population more accurately. There may be differences in the flagging of prior results with similar values performed with this method. Those prior results can be interpreted in the context of the updated reference intervals. Glucose 125(H) 70 - 99 mg/dL 06/15/2024 7:09 PM PROCESS MECHANIC LAB[facility]ATORY Blood BLOOD SPECIMEN / Unknown Venipuncture / Unknown 06/15/2024 5:14 PM PROCESS MECHANIC 06/15/2024 5:14 PM PROCESS MECHANIC Yamile James ID-C LAB - BLOOD ORDERABLES Final R esult [facility] [address] [facility] (1st floor, no room number) [place] [phone] [place] [address] * CRP, inflammation (06/15/2024 5:14 PM PROCESS MECHANIC) Pathologist [facility] CRP Inflammation <3.00 <5.00 mg/L 06/15/20 7:09 PM PROCESS MECHANIC LABORATORY Blood BLOOD SPECIMEN / Unknown Venipuncture / Unknown 06/15/2024 5:14 PM PROCESS MECHANIC 06/15/2024 5:14 PM PROCESS MECHANIC Yamile Vetrdanyelle PA-C LAB - BLOOD ORDERABLES Final R esult [facility] [address] Lab (1st floor, no room number) [place] [phone] * (ABNORMAL) Urine Culture (06/15/2024 2:15 PM PROCESS MECHANIC) Pathologist [facility] Culture 10,000-50,000 CFU/mL Enterobacter cloacae complex(A) 06/16/2024 11:19 PM PROCESS MECHANIC [facility] Urine URINE SPECIMEN OBTAINED BY CLEAN CATCH PROCEDURE / Unknown Non-blood Collection / Unknown 06/15/2024 2:15 PM PROCESS MECHANIC 06/15/2024 2:28 PM PROCESS MECHANIC Narrative Organism Antibiotic Method Susceptibility Enterobacter cloacae [...] ORDERABLES F inal Result [facility] Inf. Diseases Diag. Lab [address] [facility], [address] [place] [id number] * (ABNORMAL) Urine Microscopic Exam (06/15/2024 2:15 PM PROCESS MECHANIC) Pathologist [facility] Bacteria Urine Moderate( A) None Seen /HPF KAILYN 06/15/2024 2:35 PM PROCESS MECHANIC LABORATORY RBC Urine 2-5(A) 0-2 /HPF /HPF KAILYN 06/15/2024 2:35 PM PROCESS MECHANIC LABORATORY WBC Urine >100(A) 0-5 /HPF /HPF KAILYN 06/15/2024 2:35 PM PROCESS MECHANIC LABORATORY Squamous Epithelials Urine Few(A) None Seen /LPF KAILYN 06/15/2024 2:35 PM PROCESS MECHANIC LABORATORY Urine URINE SPECIMEN OBTAINED BY CLEAN CATCH PROCEDURE / Unknown Non-blood Collection / Unknown 06/15/2024 2:15 PM PROCESS MECHANIC 06/15/2024 2:15 PM PROCESS MECHANIC us Esteban Gant MD LAB - URINE ORDERABLES Final Res ult LABORATORY [facility] [address] [facility] Lab (no room number, 1st floor of clinic) [place] [address], [facility] * (ABNORMAL) UA Macroscopic with reflex to Microscopic and Culture - Clinic Collect (06/15/2024 2:15 PM PROCESS MECHANIC) Color Urine Yellow Colorless, Straw, Light Yellow, Yellow 06/15/2024 2:28 PM PROCESS MECHANIC LABORATORY Appearance Urine Clear Clear 06/15/20 2:28 PM PROCESS MECHANIC LABORATORY Glucose Urine Negative Negative mg/dL 06/15/2024 2:28 PM PROCESS MECHANIC LABORATORY Bilirubin Urine Small(A) Negative 2:28 PM PROCESS MECHANIC LABORATORY Ketones Urine 15(A) Negative mg/dL 06/15/2024 2:28 PM PROCESS MECHANIC LABORATORY Specific [place] Urine >=1.030 1.003 - 1.035 06/15/2024 2:28 PM PROCESS MECHANIC LABORATORY Blood Urine Trace(A) Negative 06/15/2024 2:28 PM PROCESS MECHANIC LABORATORY pH Urine 5.5 5.0 - 7.0 06/15/2024 2:28 PM PROCESS MECHANIC LAB[facility] Protein Albumin Urine 100(A) Negative mg/dL 06/15/2024 2:28 PM PROCESS MECHANIC LABORATORY Urobilinogen Urine 0.2 0.2, 1.0 E.U./dL 06/15/2024 2:28 PM PROCESS MECHANIC LABORATORY Nitrite Urine Negative Negative 06/15/2024 2:28 PM PROCESS MECHANIC LABORATORY Leukocyte Esterase Urine Moderate(A) Negative 06/15/2024 2:28 PM PROCESS MECHANIC [facility] Urine URINE SPECIMEN OBTAINED BY CLEAN CATCH PROCEDURE / Unknown Non-blood Collection / Unknown 06/15/2024 2:15 PM PROCESS MECHANIC 06/15/2024 2:15 PM PROCESS MECHANIC us Esteban Gant MD LAB - URINE ORDERABLES Final Res ult LABORATORY [facility] [address] [facility] (no room number, 1st floor of clinic) [place] [address], [facility] documented in this encounter Visit Diagnoses [...] for clinic use $Given 06/15/2024 5:59 PM PROCESS MECHANIC 1 g Right Gluteus Ethan documented in this encounter Additional Health Concerns Assessment Noted Time PHQ-9 Depression Total Score: 5 03/09/20 23 10:57 AM CDT documented as of this encounter Care Teams Design Engineer Relationship Specialty Start Date End Date Alfreda Ray PA-C [address] [place] [address] [phone] PCP - General Family Medicine 12/30/21 Alfreda Ray PA-C [address] [place] [address] Referring Physician Family Medicine 12/31/21 Katrin Orellana PA-C [address] [place] [address] Physician [facility] Dermatology 12/31/21 Shanna Vang PA-C [address] [place] [address] Assigned Cancer Care Provider 01/10/22 Fransisco Eddy MD [address] [place] [address] Assigned Rheumatology Provider 05/09/22 Cristina Hsieh [facility] [address] [place] [address] Pharmacist Pharmacist 09/07/22 Alfreda Ray PA-C [address] [place] [address] [phone] Assigned PCP 08/29/22 Cristina Hsieh [facility] [address] [place] [address] Assigned MTM Pharmacist 09/26/22 Dakota Tatum MD [address] [place] [address] Cardiovascular Disease 03/25/23 Dakota Tatum MD [address] [place] [address] 477685 Assigned Heart and Vascular Provider 05/01/23 [place] [address] [facility] [address] [address] Assigned Musculoskeletal Provider 04/12/24 documented as of this encounter
--- OUTSIDE RECORDS SUMMARY | 2024-07-28 12:48 | XMS_ITS | Clinical Summary ---
Author Organization [facility] Address [address] [place] [address] Care Team Providers Care Senior Engineering Team Leader Name Role Phone Alfreda Ray PA-C Primary Care Provider + Alfreda Ray PA-C Unavailable [phone] Katrin Orellana PA-C Unavailable Shanna Vang PA-C Unavailable [phone] Fransisco Eddy MD Unavailable Cristina Hsieh [facility] Unavailable Alfreda Ray PA-C Unavailable [phone] Cristina Hsieh [facility] Unavailable Dakota Tatum MD Unavailable [phone] Dakota Tatum MD Unavailable [phone] Srinivas Marie DO Unavailable [phone] Allergies Active Allergy Reactions Criticality Noted [...] mouth daily. 90 tablet 3 4 Active Active Problems Problem Noted Date Diagnosed Date Adverse effect of prednisone, sequela - weight g ain 03/16/2024 Severe obesity (BMI 35.0-39. 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 Fransisco Eddy @ [facility] - on Humira & hydroxychloroquine [...] Total Score(s): No flowsheet data found. Last [facility] website verification: Done 09/25/2019 [email or web address] 04/13/2014 12/30/2021 HTN, goal below 140/90 [...] Encounters Date Type Department Care Team Description 07/04/2024 Telephone [facility] [address] [address] Fransisco Eddy MD Prior Auth - Medication (Rinvoq PA and FPAP renewal) 07/04/2024 MyC Medical Advice [facility] [address] [place] [address] 1st [place] [address] [facility] 06/17/2024 Orders Only [address] [phone] Yamile James PA-C Complicated UTI (urinary tract infection) (Primary Dx) 06/15/2024 2:05 PM CHIEF TECHNICAL OFFICER Office Visit [facility] [place] [address] [place] [phone] Yamile James PA-C Complicated UTI (urinary tract infection) (Primary Dx); Dysuria; Flank pain 06/15/2024 Travel 06/07/2024 3:40 PM CHIEF TECHNICAL OFFICER E-Visit [address] [phone] Alfreda Ray PA-C Derm Problem (Entered automatically based ... 06/07/2024 MyC Medical Advice [address] [phone] Alfreda Ray PA-C 06/06/[address] [phone] Alfreda Ray PA-C 06/02/2024 10:30 AM CHIEF TECHNICAL OFFICER Virtual Visit [facility] Rheumatology [facility] [address] [place] [phone] Fransisco Eddy MD Wedemeyer, Rachel M, [facility] Rheumatoid arthritis involving multiple sites with positive rheumatoid factor (H) (Primary Dx); Primary osteoarthritis involving multiple joints; Severe obesity (BMI 35.0-39.9) with comorbidity (H) - prediabetes, hypertension 05/04/2024 12:30 PM CHIEF TECHNICAL OFFICER Office Visit [facility] [address] [phone] Fransisco Eddy MD Polyarthralgia (Primary Dx) 05/04/2024 Travel 05/01/2024 Travel 04/30/2024 MyC Medical Advice [address] [phone] Alfreda Ray PA-C Urinary Problem from Last 3 Months Immunizations Name Administration [...] re latives? Once a week 03/15/2024 Attends [employer] Not on file 03/15 Active Member of Clubs or Organizations Not on f ile 03/15/2024 Attends Club or Organization Meetings Not on anu e 03/15/2024 Marital Status Not on file 03/15/2024 PHQ-2 Answer Date Recorded PHQ-2 Score 0 03/16/2024 [facility] of Occupat ional Health - Occupational Stress [...] in an overnight detention, or couch-surfing.) Yes 03/15/2024 Are you worried [...] Sex Assigned at Female 08/17/2018 7:56 AM CHIEF TECHNICAL OFFICER Legal Sex Female 4:24 AM CHIEF TECHNICAL OFFICER Gender Identity Female 08/17/2018 7:56 AM CHIEF TECHNICAL OFFICER Sexual Orientation Straight 08/17/2018 7: 56 AM CHIEF TECHNICAL OFFICER Last Filed Vital Signs Vital Sign Reading Time Taken Comments Blood Pressure 136/70 06/15/2024 6:10 PM CHIEF TECHNICAL OFFICER Pulse 64 06/15/2024 4:35 PM CHIEF TECHNICAL OFFICER Temperature 36.8 C (98.2 F) 06/15/2024 4:35 PM CHIEF TECHNICAL OFFICER Respiratory Rate 18 06/15/2024 4:35 PM CHIEF TECHNICAL OFFICER Oxygen Saturation 97% 06/15/2024 4:35 PM CHIEF TECHNICAL OFFICER Inhaled Oxygen Concentration - - Weight 94.3 kg (208 lb) 06/15/2024 4:35 PM CHIEF TECHNICAL OFFICER Height 157.5 cm (5' 2) 05/04/2024 12:20 PM CHIEF TECHNICAL OFFICER Body Mass Index 38.04 05/04/2024 12:20 PM CHIEF TECHNICAL OFFICER Plan of Treatment Upcoming Encounters Date Type Department Care Team (Late st Contact Info) Description 09/07/2024 10:00 AM CDT Office Visit [facility] [place] [address] [facility] [address] [place] [phone] Fransisco Eddy MD [address] [facility] 88 [place] [address] 09/18/2024 2:00 PM CDT Virtual Visit [facility] [address] [place] [phone] Shanna Vang, PA-C [address] [place] [phone] 03/29/2025 3:40 PM CDT Office Visit [address] [place] [phone] Alfreda Ray, PARobinson [address] [place] [phone] Health Maintenance Due Date Last Done Comments CT COLONOGRAPHY 1940 FIT 1940 FLEX SIG 1940 sDNA (Cologuard) 1940 DEXA 10/01/2023 09/30/2020, 11/19, 09/04/2010, Additional history exists HEPATITIS A IMMUNIZATION (2 of 3 - Hep A Twinrix risk 3-dose series) 10/06/2023 09/08/2023 PHQ-2 (once per calendar year) 2024 03/16/2024, 12/13/2023, 03/10/2023, Additional history exists A1C 09/13/2024 03/16/2024, 02/20, 09/09/2022, Additional history exists COVID-19 Vaccine (8 - Pfizer risk season) 2024 03/16/2024, 05/03/2023, 04/22/2022, Additional history exists ANNUAL REVIEW OF HM ORDERS 03/16/202503/16, 08/26/2022, 09/04/2021, Additional history exists CMP 03/16/2025 03/16/2024, 07/0 06/2023, 12/09/2023, Additional history exists FALL RISK ASSESSMENT 03/16/2025 03/16/2024, 03/10/2023, 03/05/2022, Additional history exists LIPID 03/16/2025 03/16/2024, 02/20, 05/07/2022, Additional history exists MEDICARE ANNUAL WELLNESS VISIT 03/16/2025 03/16/2024, 03/10/2023, 03/05/2022, Additional history exists MICROALBUMIN 03/16/2025 03/16/2024, 030 01/2023, 09/04/2021, Additional history exists VITAMIN B12 [...] PLATELETS & DIFFERENTIAL STAT 06/15/2024 5:14 PM CHIEF TECHNICAL OFFICER Flank pain CBC WITH PLATELETS AND DIFFERENTIAL STAT 06/15/2024 5:14 PM CHIEF TECHNICAL OFFICER Flank pain BASIC METABOLIC PANEL STAT 06/15/2024 5:14 PM CHIEF TECHNICAL OFFICER Flank pain CRP INFLAMMATION STAT 06/15/2024 5:14 PM CHIEF TECHNICAL OFFICER Flank pain URINE CULTURE Routine 06/15/2024 2:15 PM CHIEF TECHNICAL OFFICER Dysuria URINE MICROSCOPIC EXAM Routine 06/15/2024 2:15 PM CHIEF TECHNICAL OFFICER Dysuria UA MACROSCOPIC WITH REFLEX TO MICRO AND CULTURE Routine 06/15/2024 2:15 PM CHIEF TECHNICAL OFFICER Dysuria ALBUMIN RANDOM URINE QUANTITATIVE Routine 03/16/2024 [...] COLONOSCOPY - HIM SCAN 08/26/2015 12:00 AM CHIEF TECHNICAL OFFICER from Last 3 Months or Most Recently Relevant to Health Maintenance Results * (ABNORMAL) CBC with platelets and differential (06/15/2024 5:14 PM CHIEF TECHNICAL OFFICER) WBC Count 5.3 4.0 - 11.0 10e3/uL 06/15/2024 5:37 PM CHIEF TECHNICAL OFFICER [facility] RBC Count 3.23(L) 3.80 - 5.20 10e6/uL 06/15/2024 5:37 PM CHIEF TECHNICAL OFFICER [facility] Hemoglobin 10.9(L) 11.7 - 15.7 g/dL 06/15/2024 5:37 PM CHIEF TECHNICAL OFFICER [facility] Hematocrit 34.2(L) 35.0 - 47.0 % 06/15/2024 5:37 PM CHIEF TECHNICAL OFFICER [facility] MCV 106(H) 78 - 100 fL 06/15/2024 5:37 PM CHIEF TECHNICAL OFFICER [facility] MCH 33.7(H) 26.5 - 33.0 pg 06/15/2024 5:37 PM CHIEF TECHNICAL OFFICER [facility] MCHC 31.9 31.5 - 36.5 g/dL 06/15/2024 5:37 PM CHIEF TECHNICAL OFFICER [facility] RDW 13.3 10.0 - 15.0 % 06/15/2024 5:37 PM CHIEF TECHNICAL OFFICER [facility] Platelet Count 302 150 - 450 10e3/uL 06/15/2024 5:37 PM CHIEF TECHNICAL OFFICER [facility] % Neutrophils 65 % 06/15/2024 5:37 PM CHIEF TECHNICAL OFFICER [facility] % Lymphocytes 26 % 06/15/2024 5:37 PM CHIEF TECHNICAL OFFICER [facility] % Monocytes 8 % 06/15/2024 5:37 PM CHIEF TECHNICAL OFFICER [facility] % Eosinophils 0 % 06/15/2024 5:37 PM CHIEF TECHNICAL OFFICER [facility] % Basophils 0 % 06/15/2024 5:37 PM CHIEF TECHNICAL OFFICER [facility] % Immature Granulocytes 1 % 06/15/2024 5:37 PM CHIEF TECHNICAL OFFICER [facility] Absolute Neutrophils 3.4 1.6 - 8.3 10e3/uL 06/15/2024 5:37 PM CHIEF TECHNICAL OFFICER [facility] Absolute Lymphocytes 1.4 0.8 - 5.3 10e3/uL 06/15/2024 5:37 PM CHIEF TECHNICAL OFFICER [facility] Absolute Monocytes 0.4 0.0 - 1.3 10e3/uL 06/15/2024 5:37 PM CHIEF TECHNICAL OFFICER [facility] Absolute Eosinophils 0.0 0.0 - 0.7 10e3/uL 06/15/2024 5:37 PM CHIEF TECHNICAL OFFICER [facility] Absolute Basophils 0.0 0.0 - 0.2 10e3/uL 06/15/2024 5:37 PM CHIEF TECHNICAL OFFICER [facility] Absolute Immature Granulocytes 0.0 <=0.4 10e3/uL 06/15/2024 5:37 PM CHIEF TECHNICAL OFFICER LABORATORY Blood BLOOD SPECIMEN / Unknown Venipuncture / Unknown 06/15/2024 5:14 PM CHIEF TECHNICAL OFFICER 06/15/2024 5:14 PM CHIEF TECHNICAL OFFICER Yamile James PA-C LAB - BLOOD ORDERABLES Final R esult LABORATORY [facility] [address] [facility] Lab (no room number, 1st floor of clinic) [place] [address], [facility] * CRP, inflammation (06/15/2024 5:14 PM CHIEF TECHNICAL OFFICER) [facility] CRP Inflammation <3.00 <5.00 mg/L 06/15/20 7:09 PM CHIEF TECHNICAL OFFICER LABORATORY Blood BLOOD SPECIMEN / Unknown Venipuncture / Unknown 06/15/2024 5:14 PM CHIEF TECHNICAL OFFICER 06/15/2024 5:14 PM CHIEF TECHNICAL OFFICER Yamile BORRERO-C LAB - BLOOD ORDERABLES Final R esult LABORATORY [facility] [address] Lab (1st floor, no room number) [place] [address], [facility] * (ABNORMAL) Basic metabolic panel (06/15/2024 5:14 PM CHIEF TECHNICAL OFFICER) Sodium 143 135 - 145 mmol/L 06/15/2024 7:09 PM [facility] Potassium 4.6 3.4 - 5.3 mmol/L 06/15/2024 7:09 PM [facility] Chloride 106 98 - 107 mmol/L 06/15/2024 7:09 PM [facility] Carbon Dioxide (CO2) 26 22 - 29 mmol/L 06/15/2024 7:09 PM [facility] Anion Gap 11 7 - 15 mmol/L 06/15/2024 7:09 PM [facility] Urea Nitrogen 26.3(H) 8.0 - 23.0 mg/dL 06/15/2024 7:09 PM [facility] Creatinine 1.18(H) 0.51 - 0.95 mg/dL 06/15/2024 7:09 PM [facility] GFR Estimate 46(L) >60 mL/min/1.7 3m2 06/15/2024 7:09 PM [facility] Comment:eGFR calculated usin 2020 CKD-EPI equation. Calcium 9.8 8.8 - 10.4 mg/dL 06/15/2024 7:09 PM [facility] Comment:Reference intervals for this test were updated on 01/04/2024 to reflect our healthy population more accurately. There may be differences in the flagging of prior results with similar values performed with this method. Those prior results can be interpreted in the context of the updated reference intervals. Glucose 125(H) 70 - 99 mg/dL 06/15/2024 7:09 PM [facility] Blood BLOOD SPECIMEN / Unknown Venipuncture / Unknown 06/15/2024 5:14 PM CHIEF TECHNICAL OFFICER 06/15/2024 5:14 PM CHIEF TECHNICAL OFFICER us Yamile James PA-C LAB - BLOOD ORDERABLES Final R esult LABORATORY [facility] [address] [facility] Lab (1st floor, no room number) [place] [address], [facility] * (ABNORMAL) UA Macroscopic with reflex to Microscopic and Culture - Clinic Collect (06/15/2024 2:15 PM CHIEF TECHNICAL OFFICER) Color Urine Yellow Colorless, Straw, Light Yellow, Yellow 06/15/2024 2:28 PM CHIEF TECHNICAL OFFICER LABORATORY Appearance Urine Clear Clear 06/15/20 2:28 PM CHIEF TECHNICAL OFFICER LABORATORY Glucose Urine Negative Negative mg/dL 06/15/2024 2:28 PM CHIEF TECHNICAL OFFICER LABORATORY Bilirubin Urine Small(A) Negative 2:28 PM CHIEF TECHNICAL OFFICER LABORATORY Ketones Urine 15(A) Negative mg/dL 06/15/2024 2:28 PM CHIEF TECHNICAL OFFICER LABORATORY Specific Holliday Urine >=1.030 1.003 - 1.035 06/15/2024 2:28 PM CHIEF TECHNICAL OFFICER LABORATORY Blood Urine Trace(A) Negative 06/15/2024 2:28 PM CHIEF TECHNICAL OFFICER LABORATORY pH Urine 5.5 5.0 - 7.0 06/15/2024 2:28 PM CHIEF TECHNICAL OFFICER LABORATORY Protein Albumin Urine 100(A) Negative mg/dL 06/15/2024 2:28 PM CHIEF TECHNICAL OFFICER LABORATORY Urobilinogen Urine 0.2 0.2, 1.0 E.U./dL 06/15/2024 2:28 PM CHIEF TECHNICAL OFFICER LABORATORY Nitrite Urine Negative Negative 06/15/2024 2:28 PM CHIEF TECHNICAL OFFICER LABORATORY Leukocyte Esterase Urine Moderate(A) Negative 06/15/2024 2:28 PM CHIEF TECHNICAL OFFICER LABORATORY Urine URINE SPECIMEN OBTAINED BY CLEAN CATCH PROCEDURE / Unknown Non-blood Collection / Unknown 06/15/2024 2:15 PM CHIEF TECHNICAL OFFICER 06/15/2024 2:15 PM CHIEF TECHNICAL OFFICER us Esteban Gant MD LAB - URINE ORDERABLES Final Res ult LABORATORY [facility] [address] [facility] Lab (no room number, 1st floor of clinic) [place] [address], [facility] * (ABNORMAL) Urine Microscopic Exam (06/15/2024 2:15 PM CHIEF TECHNICAL OFFICER) Bacteria Urine Moderate( A) None Seen /HPF KAILYN 06/15/2024 2:35 PM CHIEF TECHNICAL OFFICER LABORATORY RBC Urine 2-5(A) 0-2 /HPF /HPF KAILYN 06/15/2024 2:35 PM CHIEF TECHNICAL OFFICER LABORATORY WBC Urine >100(A) 0-5 /HPF /HPF KAILYN 06/15/2024 2:35 PM CHIEF TECHNICAL OFFICER LABORATORY Squamous Epithelials Urine Few(A) None Seen /LPF KAILYN 06/15/2024 2:35 PM CHIEF TECHNICAL OFFICER [facility] Urine URINE SPECIMEN OBTAINED BY CLEAN CATCH PROCEDURE / Unknown Non-blood Collection / Unknown 06/15/2024 2:15 PM CHIEF TECHNICAL OFFICER 06/15/2024 2:15 PM CHIEF TECHNICAL OFFICER us Esteban Gant MD LAB - URINE ORDERABLES Final Res ult LABORATORY [facility] [address] [facility] Lab (no room number, 1st floor of clinic) [place] [address], [facility] * (ABNORMAL) Urine Culture (06/15/2024 2:15 PM CHIEF TECHNICAL OFFICER) Culture 10,000-50,000 CFU/mL Enterobacter cloacae complex(A) 06/16/2024 11:19 PM CHIEF TECHNICAL OFFICER [facility] Urine URINE SPECIMEN OBTAINED BY CLEAN CATCH PROCEDURE / Unknown Non-blood Collection / Unknown 06/15/2024 2:15 PM CHIEF TECHNICAL OFFICER 06/15/2024 2:28 PM CHIEF TECHNICAL OFFICER Narrative Organism Antibiotic Method Susceptibility Enterobacter cloacae [...] ORDERABLES F inal Result [facility] Inf. Diseases Diag. Lab [address] [facility], [address] [place] [address] * Albumin Random Urine [...] control, and institution of therapy with an iktsrirxvda-bmafzzdfda-ndbura (JUANCARLOS) inhibitor (if the patient can tolerate it). Urine URINE SPECIMEN / Unknown Non-blood Collection / Unknown 03/16/2024 3:16 PM CDT 03/16/2024 3:16 PM CDT us Alfreda Ray PA-C LAB - URINE ORDERABLES F inal Result [facility] LAB[facility]AT[facility] [place] [facility] [address] [facility], [address] [place] [address] * (ABNORMAL) Lipid panel [...] 219 mg/dL Very High: >= 220 mg/dL us Alfreda Ray PA-C LAB - BLOOD ORDERABLES F inal Result [facility] [place] [facility] [address] [facility], [address] [place] [address], [facility] * (ABNORMAL) HEMOGLOBIN A1C (03/16/2024 3:09 PM CDT) Pathologist [facility] Estimated Average Glucose 120(H) <117 mg/dL 03/16/2024 [...] F inal Result RV LABORATORY [facility] [place] [facility] [address] [facility] Lab (no room number, 1st floor of clinic) [place] [address], [facility] * (ABNORMAL) Comprehensive metabolic panel (BMP + Alb, Alk Phos, ALT, AST, Total. Bili, TP) (03/16/2024 3:09 PM CDT) Pathologist [facility] Sodium 143 135 - 145 mmol/L 03/17/2024 [...] 7:42 PM CDT [facility] Comment:eGFR calculated 2020 CKD-EPI equation. Calcium 10.0 8.8 - [...] BLOOD ORDERABLES F inal Result [facility] [place] [facility] [address] [facility], [address] [place] [address], [facility] * Vitamin B12 (03/16/2024 3:09 PM CDT) Vitamin B12 869 232 - 1,245 pg/mL 03/17/2024 7:42 PM CDT [facility] Blood BLOOD SPECIMEN / Unknown Venipuncture / Unknown 03/16/2024 3:09 PM CDT 03/16/2024 3:09 PM CDT us Alfreda Ray PA-C LAB - BLOOD ORDERABLES F inal Result U LABORATORY [facility] [place] [facility] [address] [facility], [address] [place] [address] * DX Hip/Pelvis/Spine w Lateral (09/30/2020 12:30 PM CDT) Anatomical Region Laterality Modality Dexa Bone Mineral Den sity Narrative 10/04/2020 1:35 PM CD[place] [address] 09/30/2020 PATIENT: Alexandria Bradshaw CHART: [id number] : 1940 AGE: [age] year old SEX: female REFERRING PROVIDER: Kelly Haley MD PROCEDURE: Bone density scanning was performed using DXA technology of the lumbar spine and hip. Scanning was performed on a Sanghvi scanner. Reporting is completed in the form [...] to another DXA performed on the same Sanghvi machine on 12/10/2014. LATERAL VERTEBRAL ASSESSMENT Procedure: Vertebral fracture assessment was performed in the lateral decubitus position using a [employer] densitometer. Indications for VFA: T-score of -1.0 [...] CAN SALGUERO M.D. us Kelly Haley MD IMYue DEXA ORDERABLES Fin al Result * MA [...] COLONOSCOPY - HIM SCAN (08/26/2015 12:00 AM CHIEF TECHNICAL OFFICER) 08/26/2015 Provider Outside PROCEDURES Final Result from Last 3 Months or Most Recently Relevant to Health Maintenance Insurance [facility] MEDICARE ADVANTAGE [facility] MEDICARE ADVANTAGE * Guarantor: MichaelAlexandria gross [employer] Account Type Relation to Patient Date of Phone Billing Address Medication Therapy Self 1940 [address] [place] [phone] [facility] MEDICARE ADVANTAGE Advance Directives For more information, please contact: [phone] * Full Code (Latest Code Status on File) Date Activated Date Inactivated Comments 12/08/2021 8:37 PM 12/09/2021 3:06 PM All basic an d advanced life-sustaining interventions are performed as appropriate Question Answer Comments Code status determined by: Discussion with galina nt/ legal decision maker Care Teams Senior Engineering Team Leader Relationship Specialty Start Date End Date Alfreda Ray PA-C [address] [place] [phone] PCP - General Family Medicine 12/30/21 Alfreda Ray PA-C [address] [place] [address] Referring Physician Family Medicine 12/31/21 Katrin Orellana PA-C [address] [place] [address] Physician Shaft Mechanic Dermatology 12/31/21 Shanna Vang PA-C [address] [place] [address] Assigned Cancer Care Provider 01/10/22 Fransisco Eddy MD [address] [place] [address] Assigned Rheumatology Provider 05/09/22 Cristina Hsieh [facility] [address] [place] [address] [place] [address] Pharmacist Pharmacist 09/07/22 Alfreda Ray PA-C [address] [place] [address] Assigned PCP 08/29/22 Cristina Hsieh [facility] [address] [phone] Assigned MTM Pharmacist 09/26/22 Dakota Tatum MD [address] [place] [address] Cardiovascular Disease 03/25/23 Dakota Tatum MD [address] [place] [address] Assigned Heart and Vascular Provider 05/01/23 [place] [address] [address], [address] [address] Assigned Musculoskeletal Provider 04/12/24
--- NOTE | 2024-07-28 14:08 | CRLHL7_ITS ---
For Patients: As a result of the Cures Act, medical imaging exams and procedure reports are released immediately into your electronic medical record. You may view this report before your referring provider. If you have questions, please contact your health care provider. INDICATION: Fall, pain COMPARISON: Same-day left shoulder radiographs, prior chest CT 06/23/2024 TECHNIQUE: Three views chest and right ribs. FINDINGS: No acute or healing rib fractures. No focal or diffuse lung opacities. Surgical resection suture in the right lower lobe. No pneumothorax. No pleural effusion. Cholecystectomy clips. Heart size is normal. IMPRESSION: Normal chest and right rib radiographs. Dictated by Lilliana Saba MD @ 07/28/2024 3:02:23 PM (Electronically Signed)
--- NOTE | 2024-07-28 14:09 | CRLHL7_ITS ---
For Patients: As a result of the Cures Act, medical imaging exams and procedure reports are released immediately into your electronic medical record. You may view this report before your referring provider. If you have questions, please contact your health care provider. INDICATION: Fall COMPARISON: Same day rib radiographs, chest radiograph 06/23/2024 TECHNIQUE: Three views left shoulder FINDINGS: No fracture. No dislocation. High-riding humeral head with narrowing of the subacromial space consistent with a chronic rotator cuff tear. Glenohumeral osteoarthritis with mild subchondral remodeling. Fairly wide spacing between the tip of the acromion and the lateral clavicle is unchanged pain may be posttraumatic or postsurgical in nature. No focally destructive bone lesion. There is some soft tissue swelling around the shoulder. No foreign body. IMPRESSION: No acute bony findings of the left shoulder. Dictated by Lilliana Saba MD @ 07/28/2024 3:00:46 PM (Electronically Signed)
--- NOTE | 2024-07-28 14:10 | CRLHL7_ITS ---
For Patients: As a result of the Century Cures Act, medical imaging exams and procedure reports are released immediately into your electronic medical record. You may view this report before your referring provider. If you have questions, please contact your health care provider. INDICATION: Fall, pain. COMPARISON: 07/27/2024 brain MR, 06/22/[address] TECHNIQUE: CT of the brain / head without intravenous contrast. Multiplanar axial, coronal, and sagittal reformats were reconstructed. FINDINGS: No intracranial hemorrhage. No acute or subacute cortically based infarct. Chronic right frontal infarct. Scattered substantial white matter hypodensities may be related to chronic microvascular ischemia. No mass or mass effect. Normal ventricles. No skull fractures. No worrisome focal bone lesion. IMPRESSION: No acute findings. Please note that all CT scans at this facility use dose modulation, iterative reconstruction, and/or weight-based dosing when appropriate to reduce radiation dose to as low as reasonably achievable. Dictated by Lilliana Saba MD @ 07/28/2024 3:14:55 PM (Electronically Signed)
--- NOTE | 2024-07-28 14:22 | ED_ITS ---
HPI - General Adult General Chief complaint: Fall/Minor Trauma Stated complaint: Fell, hit head Time Seen by Provider: 07/28/24 13:38 Source: patient and family Limitations: no limitations History of Present Illness HPI narrative: Patient is an 84-year-old female presenting today after she fell out of bed approximately 6 hours ago. She states that she rolled out of bed, struck her head on the table next to her bed and her chin when she rolled. She fell face down on the ground and she was unable to get up. Her was not home at the time so she was on the ground for approximately 3 hours before she received any help. This is not the 1st time this happened this week, she fell another time last Wednesday which is 2 days ago. She states that she has pain in her left shoulder and right rib cage. Patient is here with her son and her who state that physical therapist comes to their home 2 times per week and a home health nurse stops by 3 times per week. Unfortunately patient has been getting weaker with time instead of stronger and she is requiring more assistance at home. Her states that he cannot have her back at home at this time because he is not strong enough to continue to assist her. Patient was admitted to the hospital on June 22 it through the with COVID-19 and increased weakness. Patient states that she just has not been back to baseline after that illness. Related Data Home Medications ?Medication ?Instructions ?Recorded ?Confirmed atenolol 25 mg tablet 25 mg PO DAILY 06/22/24 07/28/24 duloxetine 60 mg capsule,delayed 60 mg PO QPM 06/22/24 07/28/24 release naltrexone 50 mg tablet 50 mg PO DAILY 06/22/24 07/28/24 rivaroxaban 10 mg tablet (Xarelto) 10 mg PO DAILY 06/22/24 07/28/24 simvastatin 20 mg tablet 20 mg PO HS 06/22/24 07/28/24 valacyclovir 500 mg tablet 500 mg PO DAILY 06/23/24 07/28/24 prednisone 1 mg tablet 2 mg PO DAILY 06/30/24 07/20/24 gabapentin 300 mg capsule 300 mg PO 08,12 07/05/24 07/28/24 gabapentin 300 mg capsule 300 mg PO HS 07/05/24 07/28/24 acetaminophen 500 mg tablet See Rx Instructions PO Q4-6H PRN 07/14/24 07/28/24 lisinopril 10 1 tab PO DAILY 07/21/24 07/28/24 mg-hydrochlorothiazide 12.5 mg tablet Allergies Allergy/AdvReac Type Severity Reaction Status Date / Time No Known Drug Allergies Allergy Verified 07/20/24 14:26 Review of Systems Status of ROS: Reports: 10 or more systems reviewed and unremarkable except as noted in History and below [facility] Medical History Osteopenia ?M85.80 - Other specified disorders of bone density and structure, unspecified site (ICD-10) Urge incontinence ?N39.41 - Urge incontinence (ICD-10) High cholesterol ?E78.00 - Pure hypercholesterolemia, unspecified (ICD-10) Prediabetes ?R73.03 - Prediabetes (ICD-10) Benign hypertension with CKD (chronic kidney disease) stage III ?I12.9 - Hypertensive chronic kidney disease with stage 1 through stage 4 chronic kidney disease, or unspecified chronic kidney disease (ICD-10) ?N18.30 - Chronic kidney disease, stage 3 unspecified (ICD-10) DVT (deep venous thrombosis) ?I82.409 - Acute embolism and thrombosis of unspecified deep veins of unspecified lower extremity (ICD-10) Obesity (BMI 30-39.9) ?E66.9 - Obesity, unspecified (ICD-10) Colon cancer ?C18.9 - Malignant neoplasm of colon, unspecified (ICD-10) Rheumatoid arthritis ?M06.9 - Rheumatoid arthritis, unspecified (ICD-10) Urinary tract infection ?N39.0 - Urinary tract infection, site not specified (ICD-10) Social History What is your current living situation?: I presently have a place to live Problems where you live: no known problems Problems where you live details: n/a In the past 12 months, utilities in danger of being shut off: no In past 12 months, lack of transportation kept you from medical appts, meetings, work, or getting things needed for daily living: no In the past 12 mos, have been you worried that your food would run out before you had money to buy more?: never true In the past 12 mos, the food you bought just didn't last and you didn't have money to buy more?: never true Smoking Status: Former smoker Nicotine containing products detail: Back when I was 19 years old. How often do you have a drink containing alcohol: 2-4 times a month How many standard drinks containing alcohol do you have on a typical day: 1 or 2 AUDIT-C Alcohol total score: 2 Non-prescribed substance use: denies use How often does anyone, including family, friends and others, physically hurt you : never How often does anyone, including family, friends and others, insult or talk down to you: never How often does anyone, including family, friends and others, threaten you with harm: never How often does anyone, including family, friends and others, scream or curse at you: never service: No Exam Narrative: Exam Narrative: Well-nourished well-developed patient in no acute distress. Alert and oriented x3. Answers questions appropriately. Mood and affect are appropriate. Thoughts are goal oriented and rational. No tangential or magical thinking noted. Patient speaks in full sentences without needing to catch her breath. GCS is 15. Patient is speaking and breathing without difficulty. There is no obvious significant bleeding noted. HEENT: Normocephalic atraumatic. No evidence of trauma to the face. Extraocular muscles are intact. Conjunctivae are moist without any icterus noted. Moist mucous membranes. No trauma noted to the inside of the mouth. Neck is soft. Cardiovascular: Heart is regular rate and rhythm S1 and S2 are present without any murmurs. Lungs: Clear to auscultation bilaterally no wheezes rhonchi or rales are appreciated. Patient cannot take deep breaths without any discomfort of the right lateral chest wall. Patient has no tenderness to palpation of the anterior, or posterior chest wall. She has tenderness on the lateral right side. No bruising noted. Abdomen: Soft and nontender nondistended with normal bowel sounds. Extremities: Bilateral lower extremities are without edema. She has bruising of the anterior left shoulder. Skin irritation of the right anterior shoulder. No significant tenderness to palpation of the right shoulder, mild discomfort on the left. No tenderness over the remainder of the upper extremities. No tenderness to palpation of the thighs, knees or lower extremities. Skin: Well perfused. Back: Normal appearance. Patient has no tenderness to palpation at the cervical, thoracic or lumbar spine. Patient has full range of motion at the neck with flexion, extension, side way bending and rotation without pain. Const: Vital Signs, click to edit/add: Vital Signs - 24 hr 07/28/24 13:16 07/28/24 14:03 07/28/24 14:15 Temperature 98.1 F Pulse Rate 63 64 Pulse Rate [Pulse Oximeter] 68 Respiratory Rate 18 Blood Pressure Blood Pressure [Ri ght Upper Arm] 127/96 H Pulse Oximetry 98 99 96 Oxygen Delivery Me thod Room Air 07/28/24 14:32 07/28/24 14:34 Temperature Pulse Rate 72 Pulse Rate [Pulse Oximeter] Respiratory Rate Blood Pressure 156/63 H Blood Pressure [Ri ght Upper Arm] Pulse Oximetry 92 Oxygen Delivery Me thod Course Course ED Course: IV established and patient is started on 500 mL of normal saline. CBCs unremarkable, shows mild anemia which is not new for the patient. Lactate is elevated at 2.0. COVID negative. CRP is normal. UA unremarkable. Normal troponin. Chemistries are unremarkable. LFTs are normal. Normal CK. X-ray of shoulder and ribs were unremarkable. Head CT did not show any acute findings. Vital Signs Vital signs: Initial Vital Signs Temperature 98.1 F 07/28/24 13:16 Temperature Source Temporal Artery Scan 07/28/24 13:16 Pulse Rate 68 07/28/24 13:16 Respiratory Rate 18 07/28/24 13:16 Blood Pressure 127/96 H 07/28/24 13:16 Blood Pressure Mean 106 H 07/28/24 13:16 Pulse Oximetry 98 07/28/24 13:16 Oxygen Delivery Method Room Air 07/28/24 13:16 Vital Signs Temperature 98.1 F 07/28/24 13:16 Pulse Rate 68 07/28/24 13:16 Respiratory Rate 18 07/28/24 13:16 Blood Pressure 127/96 H 07/28/24 13:16 Pulse Oximetry 98 07/28/24 13:16 Oxygen Delivery Method Room Air 07/28/24 13:16 Temperature 98.1 F 07/28/24 13:16 Pulse Rate 72 07/28/24 14:32 Respiratory Rate 18 07/28/24 13:16 Blood Pressure 156/63 H 07/28/24 14:34 Pulse Oximetry 92 07/28/24 14:32 Oxygen Delivery Method Room Air 07/28/24 13:16 Medications Administered Medications: Discontinued Medications Generic Name Dose Route Start Last Admin Trade Name Gerson PRN Reason Stop Dose Admin Sodium Chloride 500 mls @ 500 mls/hr 07/28/24 14:42 07/28/24 15:28 0.9 % Sodium Chloride 500 Ml IV 07/28/24 15:41 500 mls/hr .Q1H ONE Administration Medical Decision Making MDM Narrative Medical decision making narrative: Elderly female, status post fall x2 this week. Failure to thrive at home with increasing weakness. Needs more assistance than can be provided. Patient will be admitted for further management. Lab Data Lab results reviewed: Yes I reviewed the patient's lab results Labs: Lab Results 07/28/24 07/28/24 07/28/24 Range/Units 14:10 14:33 15:15 WBC 7.88 (4.50-11.00) K/uL RBC 3.50 L (4.00-5.20) m/uL Hgb 11.4 L (12.0-16.0) gm/dL Hct 35.6 (33.0-51.0) % MCV 102 H (80-100) fL MCH 33 (26-34) pg MCHC 32 (32-36) gm/dL RDW Coeff of Rowan 12.7 (11.5-15.5) % Plt Count 259 (140-440) K/uL Neut % (Auto) 77.0 H (42.0-72.0) % Lymph % (Auto) 13.8 L (20-44) % Mcdowell % (Auto) 7.5 (0.0-11.0) % Eos % (Auto) 1.4 (0.0-7.0) % Baso % (Auto) 0.3 (0.0-3.0) % Neut # (Auto) 6.10 (1.7-7.0) K/uL Lymph # (Auto) 1.10 (0.90-2.90) K/uL Mcdowell # (Auto) 0.60 (0.00-0.90) K/UL Eos # (Auto) 0.11 (0.00-0.50) K/uL Baso # (Auto) 0.02 (0.00-0.30) K/uL Abs Immat Gran (auto) 0.00 (0.00-0.30) K/uL Imm/Tot Granulo (auto) 0.0 % Sodium 139 (135-149) mmol/L Potassium 3.6 (3.6-5.1) mmol/L Chloride 103 (96-114) mmol/L Carbon Dioxide 25 (20-32) mmol/L Anion Gap 11 (7-15) mEq/L BUN 24 (7-30) mg/dL Creatinine 0.9 (0.5-1.5) mg/dL Estimated Creat Clear 34.30 Estimated GFR 64 ml/min Glucose 113 (60-115) mg/dL Lactate 2.0 H (0.5-1.9) mmol/L Calcium 9.7 (8.4-10.6) mg/dL Total Bilirubin 0.8 (0.1-1.5) mg/dL Direct Bilirubin 0.3 (0.0-0.5) mg/dL AST 20 (12-35) U/L ALT 13 (4-35) U/L Alkaline Phosphatase 55 (40-150) U/L Total Creatine Kinase 91 (41-117) U/L Troponin I 0.02 (0.01-0.04) ng/mL C-Reactive Protein < 0.5 L (0.5-1.0) mg/dL Total Protein 6.5 (6.0-8.3) g/dL Albumin 4.1 (3.3-5.0) g/dL Urine Color Yellow (Yellow) Urine Appearance Clear (Clear) Urine pH 5.5 (5.0-8.5) Ur Specific Rough And Ready 1.025 (1.000-1.030) Urine Protein Trace A (Negative) Urine Glucose (UA) Negative (Negative) Urine Ketones Trace A (Negative) Urine Blood Negative (Negative) Urine Nitrite Negative (Negative) Urine Bilirubin Negative (Negative) Urine Urobilinogen 0.2 (0.2-1.0) Ur Leukocyte Esterase Negative (Negative) Urine RBC 0-2 (0-2) Urine WBC 0-2 (0-5) Ur Squamous Epith Cells Moderate A (None-Few) Amorphous Sediment Moderate A (None) Urine Bacteria Few A (None) SARS-CoV-2 (PCR) Cancelled SARS-CoV-2 Ag (Rapid) Negative (Negative) Imaging Data X-ray shoulder: Attestation: I have reviewed the pertinent imaging results. Radiologist's impression: TECHNIQUE: Three views left shoulder FINDINGS: No fracture. No dislocation. High-riding humeral head with narrowing of the subacromial space consistent with a chronic rotator cuff tear. Glenohumeral osteoarthritis with mild subchondral remodeling. Fairly wide spacing between the tip of the acromion and the lateral clavicle is unchanged pain may be posttraumatic or postsurgical in nature. No focally destructive bone lesion. There is some soft tissue swelling around the shoulder. No foreign body. IMPRESSION: No acute bony findings of the left shoulder. X-ray ribs: Attestation: I have reviewed the pertinent imaging results. Radiologist's impression: TECHNIQUE: Three views chest and right ribs. FINDINGS: No acute or healing rib fractures. No focal or diffuse lung opacities. Surgical resection suture in the right lower lobe. No pneumothorax. No pleural effusion. Cholecystectomy clips. Heart size is normal. IMPRESSION: Normal chest and right rib radiographs. CT scan - head: Attestation: I have reviewed the pertinent imaging results. Radiologist's impression: TECHNIQUE: CT of the brain / head without intravenous contrast. Multiplanar axial, coronal, and sagittal reformats were reconstructed. FINDINGS: No intracranial hemorrhage. No acute or subacute cortically based infarct. Chronic right frontal infarct. Scattered substantial white matter hypodensities may be related to chronic microvascular ischemia. No mass or mass effect. Normal ventricles. No skull fractures. No worrisome focal bone lesion. IMPRESSION: No acute findings. Discharge Plan Discharge Clinical Impression: Fall, Weakness Patient Disposition: Admitted As Observation Condition: Stable Prescriptions: No Action gabapentin 300 mg capsule 300 mg PO 08,12 gabapentin 300 mg capsule 300 mg PO HS lisinopril-hydrochlorothiazide 10-12.5 mg tablet 1 tab PO DAILY naltrexone 50 mg tablet 50 mg PO DAILY atenolol 25 mg tablet 25 mg PO DAILY simvastatin 20 mg tablet 20 mg PO HS duloxetine 60 mg capsule,delayed release(DR/EC) 60 mg PO QPM Xarelto 10 mg tablet 10 mg PO DAILY valacyclovir 500 mg tablet 500 mg PO DAILY prednisone 1 mg tablet 2 mg PO DAILY acetaminophen 500 mg tablet See Rx Instructions PO Q4-6H PRN Rx Instructions: 1-2 tablets orally every 4-6 hours PRN; Not to exceed 6 tablets in 24 hours. Follow Up/Referrals: Mervat Garcia, DROSOPHERE OPERATOR [Primary Care Provider] -
--- OUTSIDE RECORDS SUMMARY | 2024-07-28 14:23 | XMS_ITS | Encounter Summary ---
Author Organization [facility] Address [address] [place] [address] Care Team Providers Care Technical Buyer Name Role Phone Esperanza Gatica MD Primary Care Provider + Esperanza Gatica MD Unavailable + Jesús Orourke MD Unavailable Alfreda Ray-C Primary Care Provider + Alfreda RayC Unavailable [phone] Katrin Orellana PA-C Unavailable [phone] Shanna Vang PA-C Unavailable [phone] Fransisco Eddy MD Unavailable [phone] Esperanza Gatica MD Unavailable + Esperanza Gatica MD Unavailable + Katrin OrellanaC Unavailable [phone] Cristina Hsieh [facility] Unavailable [phone] Alfreda Ray PA-C Unavailable +[phone] Alfreda Ray PA-C Unavailable +[phone] Cristina sHieh [facility] Unavailable [phone] Dakota Tatum MD Unavailable Dakota Tatum MD Unavailable [phone] Srinivas Marie DO Unavailable [phone] Encounter Details Date Type Department Care Team (Late Contact Info) Description 10/11/2020 Documentation Only [facility] [address] [place] [address] [place] [address] [place] [address] Social History Tobacco Use Types [...] Sex Assigned at Female 08/17/2018 7:56 AM LASER SET UP OPERATOR Legal Sex Female 4:24 AM LASER SET UP OPERATOR Gender Identity Female 08/17/2018 7:56 AM LASER SET UP OPERATOR Sexual Orientation Straight 08/17/2018 7: 56 AM LASER SET UP OPERATOR COVID-19 Exposure Response Date Recorded In [...] [facility] [place] [address] [facility] [address] [place] [address] Fransisco Eddy MD [address] [place] [address] [address] [place] [address] 09/18/2024 2:00 PM CDT Virtual Visit [facility] [address] [place] [address] Shanna Vang PA-C [address] [place] [address] 03/29/2025 3:40 PM CDT Office Visit [address] [address] Alfreda Ray PA-C [address] [place] [address] 033002 documented as of this encounter Visit Diagnoses Not on filedocumented in this encounter Additional Health Concerns Infection Onset Date Last Indicated Resolved Time Rule Out COVID-19 05/08/2021 05/08/2021 05/09/2021 9:08 PM LASER SET UP OPERATOR Assessment Noted Time PHQ-9 Depression Total Score: 0 08/31/19 21 11:22 AM LASER SET UP OPERATOR documented as of this encounter Care Teams Technical Buyer Relationship Specialty Start Date End Date Esperanza Gatica MD PCP - General Family Practice 10/13/11 12/29/21 Alfreda Ray PA-C [address] [place] [address] PCP - General Family Medicine 12/30/21 [place] [address] [place] [address] Assigned PCP 09/29/20 07/31/22 Jesú[place] [address] [place] [address] Assigned Musculoskeletal Provider 10/20/20 04/17/22 Alfreda Ray PA-C [address] [place] [address] Referring Physician Family Medicine 12/31/21 Katrin Orellana PA-C [address] [place] [address] Physician Collection Systems Consultant Dermatology 12/31/21 Shanna Vang PA-C [address] [address] Assigned Cancer Care Provider 01/10/22 Fransisco Eddy MD [address] [place] [address] Assigned Rheumatology Provider 05/09/22 [place] [address] [place] [address] Assigned Pain Medication Provider 06/29/22 09/04/22 [place] [address] [place] [address] Assigned PCP 08/15/22 08/28/22 Katrin Orellana PA-C [address] [place] [address] Assigned Surgical Provider 08/15/22 02/10/24 Cristina Hsieh [facility] [address] [place] [address] LISBETH HERNANDEZ [address] Pharmacist Pharmacist 09/07/22 Alfreda Ray PA-C [address] [place] [address] Assigned Pain Medication Provider 09/05/22 09/10/23 Alfreda Ray PA-C [address] [place] [address] Assigned PCP 08/29/22 Cristina Hsieh, [facility] [address] [place] [address] Assigned MTM Pharmacist 09/26/22 Dakota Tatum MD [address] [place] [address] Cardiovascular Disease 03/25/23 Dakota Tatum MD [address] [place] [address] Assigned Heart and Vascular Provider 05/01/23 [place] [address] [address], [address] [address] Assigned Musculoskeletal Provider 04/12/24 documented as of this encounter
--- OUTSIDE RECORDS SUMMARY | 2024-07-28 14:24 | XMS_ITS | Encounter Summary ---
Author Organization [facility] Address [address] [place] [address] Care Team Providers Care Commercial Green Building Architect Name Role Phone Esperanza Gatica MD Primary Care Provider + Esperanza Gatica MD Unavailable + Jesús Orourke MD Unavailable Alfreda Ray-C Primary Care Provider + Alfreda RayC Unavailable [phone] Katrin Orellana PA-C Unavailable [phone] Shanna Vang PA-C Unavailable [phone] Fransisco Eddy MD Unavailable [phone] Esperanza Gatica MD Unavailable + Esperanza Gatica MD Unavailable + Katrin OrellanaC Unavailable [phone] Cristina Hiseh [facility] Unavailable [phone] Alfreda Ray PA-C Unavailable +[phone] Alfreda Ray PA-C Unavailable +[phone] Cristina Hsieh [facility] Unavailable [phone] Dakota Tatum MD Unavailable Dakota Tatum MD Unavailable Srinivas Marie DO Unavailable [phone] Encounter Details Date Type Department Care Team (Late Contact Info) Description 10/22/2020 MyC Medical Advice [facility] [place] [address] [facility] [address] [place], [place] [address] Jesú[place] [address] [place], [place] [address] Social History Tobacco Use Types Packs/Day Years [...] Straight 08/17/2018 7: 56 AM DELIVERER PHARMACY COVID-19 Exposure Response Date Recorded In the [...] [facility] [address] [place] [address] Fransisco Eddy MD [address] [place] [address] 88 [place] [address] 09/18/2024 2:00 PM CDT Virtual Visit [facility] [address] [place] [address] Shanna Vang PA-C [address] [place] [address] 03/29/2025 3:40 PM CDT Office Visit [address] [address] Alfreda Ray PA-C [address] [place] [address] 642132 documented as of this encounter Visit Diagnoses Not on filedocumented in this encounter Additional Health Concerns Infection Onset Date Last Indicated Resolved Time Rule Out COVID-19 05/08/2021 05/08/2021 05/09/2021 9:08 PM DELIVERER PHARMACY Assessment Noted Time PHQ-9 Depression Total Score: 0 08/31/19 21 11:22 AM DELIVERER PHARMACY documented as of this encounter Care Teams Commercial Green Building Architect Relationship Specialty Start Date End Date Esperanza Gatica MD PCP - General Family Practice 10/13/11 12/29/21 Alfreda Ray PA-C [address] [place] [address] PCP - General Family Medicine 12/30/21 [place] [address] [place] [address] Assigned PCP 09/29/20 07/31/22 Jesú[place] [address] [place] [address] Assigned Musculoskeletal Provider 10/20/20 04/17/22 Alfreda Ray PA-C [address] [place] [address] Referring Physician Family Medicine 12/31/21 Katrin Orellana PA-C [address] [place] [address] Physician Inseam Leveler Dermatology 12/31/21 Shanna Vang PA-C [address] [address] Assigned Cancer Care Provider 01/10/22 Fransisco Eddy MD [address] [place] [address] Assigned Rheumatology Provider 05/09/22 [place] [address] [place] [address] Assigned Pain Medication Provider 06/29/22 09/04/22 [place] [address] [place] [address] Assigned PCP 08/15/22 08/28/22 Katrin Orellana PA-C [address] [place] [address] Assigned Surgical Provider 08/15/22 02/10/24 Cristina Hsieh [facility] [address] [place] [address] LISBETH HERNANDEZ [address] Pharmacist Pharmacist 09/07/22 Alfreda Ray PA-C [address] [place] [address] Assigned Pain Medication Provider 09/05/22 09/10/23 Alfreda Ray PA-C [address] [place] [address] Assigned PCP 08/29/22 Cristina Hsieh, [facility] [address] [place] [address] Assigned MTM Pharmacist 09/26/22 Dakota Tatum MD [address] [place] [address] Cardiovascular Disease 03/25/23 Dakota Tatum MD [address] [place] [address] Assigned Heart and Vascular Provider 05/01/23 [place] [address] CELE GASTELUM, [address] [address] Assigned Musculoskeletal Provider 04/12/24 documented as of this encounter
--- OUTSIDE RECORDS SUMMARY | 2024-07-28 14:24 | XMS_ITS | Encounter Summary ---
Author Organization [facility] Address [address] [place] [address] Care Team Providers Care Crop And Soil Scientist Name Role Phone Esperanza Gatica MD Primary Care Provider + Esperanza Gatica MD Unavailable +[phone] Esperanza Gatica MD Unavailable +[phone] Esperanza Gatica MD Unavailable +[phone] Esperanza Gatica MD Unavailable +[phone] Esperanza Gatica MD Unavailable +[phone] Esperanza Gatica MD Unavailable +[phone] Jesús Orourke MD Unavailable Alfreda RayC Primary Care Provider + Alfreda Ray PA-C Unavailable + [phone] Katrin Orellana PA-C Unavailable +[phone] Shanna VangC Unavailable +[phone] Fransisco Eddy MD Unavailable +[phone] Esperanza Gatica MD Unavailable +[phone] Esperanza Gatica MD Unavailable +[phone] Katrin Orellana PA-C Unavailable +[phone] Cristina Hsieh [facility] Unavailable Ho Raymustapha Liu PA-C Unavailable +[phone] Alfreda Ray Alexa KING Unavailable +[phone] Cristina Hsieh [facility] Unavailable +[phone] Dakota Tatum MD Unavailable [phone] Dakota Tatum MD Unavailable [phone] Srinivas Marie DO Unavailable [phone] Reason for Visit * Reason Onset Date Comments Refill Request 08/28/2013 tramadol Encounter Details Date Type Department Care Team (Late st Contact Info) Description 08/28/2013 MyC Refill [address], [address] [place] [address] [place] [address] [place] [address] Refill Request (tramadol) Social History Tobacco Use Types Packs/Day Years Used Date Smoking Tobacco: Former Cigarettes Q uit: 06/21/1973 Smokeless Tobacco: Former Alcohol Use Standard Drinks/Week Comments Yes 0 (1 standard drink = 0.6 oz pur e alcohol) rarely Comments No Sex and Gender Information Value Date Recorded Sex Assigned at Female 08/17/2018 7:56 AM GIFT SHOP CLERK Legal Sex Female 4:24 AM GIFT SHOP CLERK Gender Identity Female 08/17/2018 7:56 AM GIFT SHOP CLERK Sexual Orientation Straight 08/17/2018 7: 56 AM GIFT SHOP CLERK documented as of this encounter Miscellaneous Notes * Telephone Encounter - Diane Macedo RN - 08/28/2013 11:57 AM CDT Does not meet standard requirement for RN refill protocol. Medication: tramadol Last OV: 07/14/13 Provider: MD ZAIDA Reason for visit: HTN, CKD, etc... Last refill: 07/31/13 #30 Please refill if appropriate. Thank you! Diane Macedo RN [facility] [employer] * Telephone Encounter - Diane Macedo RN - 08/28/2013 11:57 AM CDT Message from [employer]: Original authorizing provider: MD Sadia Brannonyovana Fregoso Cococecy would like a refill of the following medications: traMADol (ULTRAM) 50 MG tablet [Esperanza Gatica MD] Preferred pharmacy: [id number] Comment: Sent from my iPad documented in this encounter Plan of Treatment Upcoming Encounters Date Type Department Care Team (Late st Contact Info) Description 09/07/2024 10:00 AM CDT Office Visit [facility] [address] [phone] Fransisco Eddy MD [address] [place] [address] 88 [place] [address] 09/18/2024 2:00 PM CDT Virtual Visit [facility] [address] [place] [address] Shanna Vang PARobinson [address] [place] [address] 03/29/2025 3:40 PM CDT Office Visit [facility] [address] [place] [phone] Alfreda Ray PA-C [address] [place] [address] 222302 documented as of this encounter Visit Diagnoses Diagnosis Knee pain Pain in joint, lower leg documented in this encounter Additional Health Concerns Infection Onset Date Last Indicated Resolved Time Rule Out COVID-19 05/08/202105/08/2021 05/09/2021 9:08 PM GIFT SHOP CLERK documented as of this encounter Care Teams Crop And Soil Scientist Relationship Specialty Start Date End Date Esperanza Gatica MD PCP - General Family Practice 10/13/11 12/29/21 [place] [address] L[place] GARCIA [address] PCP - Assigned PCP 12/05/17 08/23/18 Alfreda Ray PA-C [address] [place] [address] PCP - General Family Medicine 12/30/21 [place] [address] [place] GARCIA [address] Assigned PCP 12/05/17 09/30/19 [place] [address] [place] GARCIA 367[address] Assigned PCP 10/01/19 03/02/20 [place] [address] [place] GARCIA [address] Assigned PCP 03/03/20 05/25/20 [place] [address] [place] GARCIA 97[address] Assigned PCP 05/26/20 09/28/20 [place] [address] [place] GARCIA [address] Assigned PCP 09/29/20 07/31/22 [place] [address] [address] Assigned Musculoskeletal Provider 10/20/20 04/17/22 Alfreda Ray PA-C [address] [place] [address] 567922 Referring Physician Family Medicine 12/31/21 Katrin Orellana PA-C [address] [place] [address] Physician Clearing Hand Dermatology 12/31/21 Shanna Vang PA-C [facility] [address] 405564 Assigned Cancer Care Provider 01/10/22 Fransisco Eddy MD [address] [place] [address] Assigned Rheumatology Provider 05/09/22 [place] [address] [place] [address] Assigned Pain Medication Provider 06/29/22 09/04/22 [place] [address] [place] [address] Assigned PCP 08/15/22 08/28/22 Katrin Orellana PA-C 420 [facility] 98 [place] [address] Assigned Surgical Provider 08/15/22 02/10/24 Cristina Hsieh [facility] 3305 [facility] LISBETH HERNANDEZ [address] Pharmacist Pharmacist 09/07/22 Alfreda Ray PA-C [address] [place] [address] Assigned Pain Medication Provider 09/05/22 09/10/23 Alfreda Ray PA-C [address] [place] [address] Assigned PCP 08/29/22 Cristina Hsieh [facility] [address] [address] Assigned MTM Pharmacist 09/26/22 Dakota Tatum MD [address] [place] [address]679 Cardiovascular Disease 03/25/23 Dakota Tatum MD [address] [place] [address] Assigned Heart and Vascular Provider 05/01/23 [place] [address] [address], [address] [address] Assigned Musculoskeletal Provider 04/12/24 documented as of this encounter
--- OUTSIDE RECORDS SUMMARY | 2024-07-28 14:24 | XMS_ITS | Encounter Summary ---
Author Organization [facility] Address [address] [place] [address] Care Team Providers Care Utility Bill Collection Clerk Name Role Phone Esperanza Gatica MD Primary Care Provider + Esperanza Gatica MD Unavailable +[phone] Esperanza Gatica MD Unavailable +[phone] Esperanza Gatica MD Unavailable +[phone] Esperanza Gatica MD Unavailable +[phone] Esperanza Gatica MD Unavailable +[phone] Esperanza Gatica MD Unavailable +[phone] Jesús Orourke MD Unavailable Alfreda RayC Primary Care Provider + Alfreda Ray PA-C Unavailable + [phone] Katrin Orellana PA-C Unavailable +[phone] Shanna VangC Unavailable +[phone] Fransisco Eddy MD Unavailable +[phone] Esperanza Gatica MD Unavailable +[phone] Esperanza Gatica MD Unavailable +[phone] Katrin Orellana PA-C Unavailable Cristina Hsieh [facility] Unavailable Cory Alfreda Liu PA-C Unavailable +[phone] Ho Raymustapha Liu PA-C Unavailable +[phone] Cristina Hsieh [facility] Unavailable +[phone] Dakota Tatum MD Unavailable [phone] Dakota Tatum MD Unavailable [phone] Srinivas Marie DO Unavailable [phone] Reason for Visit * Reason Onset Date Comments Medication Question 07/01/2012 Ambien and T razodone Encounter Details Date Type Department Care Team (Late st Contact Info) Description 07/01/2012 MyC Medical Advice [address], [address] [place] [address] [place] [address] [place] [address] Medication Question (Ambien and Trazodone) Social History Tobacco Use Types Packs/Day Years Used Date Smoking Tobacco: Former Cigarettes Q uit: 06/21/1973 Smokeless Tobacco: Former Alcohol Use Standard Drinks/Week Comments Yes 0 (1 standard drink = 0.6 oz pur e alcohol) rarely Comments No Sex and Gender Information Value Date Recorded Sex Assigned at Female 08/17/2018 7:56 AM NUTRITIONAL YEAST SUPERVISOR Legal Sex Female 4:24 AM NUTRITIONAL YEAST SUPERVISOR Gender Identity Female 08/17/2018 7:56 AM NUTRITIONAL YEAST SUPERVISOR Sexual Orientation Straight 08/17/2018 7: 56 AM NUTRITIONAL YEAST SUPERVISOR documented as of this encounter Miscellaneous Notes * Telephone Encounter - Esperanza Gatica MD - 07/01/2012 1:43 PM NUTRITIONAL YEAST SUPERVISOR I recommend she try to stop the ambien 5mg after another week or so, and she can always take 2 of the trazodone while weaning off the ambien. Let us know how she is doing in the next week again. ITIONAL YEAST SUPERVISOR documented in this encounter Plan of Treatment Upcoming Encounters Date Type Department Care Team (Late st Contact Info) Description 09/07/2024 10:00 AM CDT Office Visit [facility] [place] 6525 [facility] 200 [place] [phone] Fransisco Eddy MD [address] [place] [address] 88 [place] [address] 09/18/2024 2:00 PM CDT Virtual Visit [facility] [address] [place] [address] 105 [place] [phone] Shanna Vang, PARobinson [address] [place] [address] 03/29/2025 3:40 PM CDT Office Visit [address] [phone] Alfreda Ray PA-C [address] [place] [address] 450572 documented as of this encounter Visit Diagnoses Not on filedocumented in this encounter Additional Health Concerns Infection Onset Date Last Indicated Resolved Time Rule Out COVID-19 05/08/2021 05/08/2021 05/09/2021 9:08 PM NUTRITIONAL YEAST SUPERVISOR documented as of this encounter Care Teams Utility Bill Collection Clerk Relationship Specialty Start Date End Date Esperanza Gatica MD PCP - General Family Practice 10/13/11 12/29/21 [place] [address] [place] [address] PCP - Assigned PCP 12/05/17 08/23/18 Alfreda Ray PA-C [address] [place] [address] PCP - General Family Medicine 12/30/21 [place] [address] [place] [address] Assigned PCP 12/05/17 09/30/19 [place] [address] [place] [address] Assigned PCP 10/01/19 03/02/20 [place] [address] [place] [address] Assigned PCP 03/03/20 05/25/20 [place] [address] [place] [address] Assigned PCP 05/26/20 09/28/20 [place] [address] [place] [address] Assigned PCP 09/29/20 07/31/22 Jesú[place] [address] [place] [address] Assigned Musculoskeletal Provider 10/20/20 04/17/22 Alfreda Ray PA-C [address] [place] [address] Referring Physician Family Medicine 12/31/21 Katrin Orellana PA-C [address] [address] Physician Ship Fitter Dermatology 12/31/21 Shanna Vang PA-C [address] [place] [address] 131714 Assigned Cancer Care Provider 01/10/22 Fransisco Eddy MD [address] [place] [address] 783535 Assigned Rheumatology Provider 05/09/22 [place] [address] [place] [address] Assigned Pain Medication Provider 06/29/22 09/04/22 [place] [address] [place] [address] Assigned PCP 08/15/22 08/28/22 Katrin Orellana PA-C [address] [place] [address] 415755 Assigned Surgical Provider 08/15/22 02/10/24 Cristina Hsieh [facility] 3305 [facility] L[place]BETH HERNANDEZ [address] Pharmacist Pharmacist 09/07/22 Alfreda Ray PA-C [address] [place] [address] Assigned Pain Medication Provider 09/05/22 09/10/23 Alfreda Ray PA-C [address] [place] [address] 950142 Assigned PCP 08/29/22 Cristina Hsieh, [facility] [address] [place] [address] Assigned MTM Pharmacist 09/26/22 Dakota Tatum MD [address] [place] [address] 113115 Cardiovascular Disease 03/25/23 Dakota Tatum MD [address] [place] [address]681 Assigned Heart and Vascular Provider 05/01/23 [place] [address] [address], [address] [address] Assigned Musculoskeletal Provider 04/12/24 documented as of this encounter
--- OUTSIDE RECORDS SUMMARY | 2024-07-28 14:24 | XMS_ITS | Encounter Summary ---
Author Organization [facility] Address [address] [place] [address] Care Team Providers Care Sales Closer Name Role Phone Esperanza Gatica MD Primary Care Provider + Esperanza Gatica MD Unavailable + Jesús Orourke MD Unavailable Alfreda Ray-C Primary Care Provider + Alfreda RayC Unavailable +[phone] Katrin Orellana PA-C Unavailable [phone] Shanna Vang PA-C Unavailable +[phone] Fransisco Eddy MD Unavailable +[phone] Esperanza Gatica MD Unavailable + Esperanza Gatica MD Unavailable + Katrin OrellanaC Unavailable +[phone] Cristina Hsieh [facility] Unavailable [phone] Alfreda Ray PA-C Unavailable +[phone] Alfreda Ray PA-C Unavailable +[phone] Cristina Hsieh [facility] Unavailable [phone] Dakota Tatum MD Unavailable Dakota Tatum MD Unavailable +[phone] Srinivas Marie DO Unavailable [phone] Reason for Visit * Reason Comments Medication Refill Encounter Details Date Type Department Care Team (Late st Contact Info) Description 11/06/[address] [facility] [address] [place] [address] [place] [address] [place] [address] Medication Refill Social History Tobacco [...] Assigned at Female 08/17/2018 7:56 AM HEAT PUMP INSTALLER Legal Sex Female 4:24 AM HEAT PUMP INSTALLER Gender Identity Female 08/17/2018 7:56 AM HEAT PUMP INSTALLER Sexual Orientation Straight 08/17/2018 7: 56 AM HEAT PUMP INSTALLER COVID-19 Exposure Response Date Recorded In the last month, have you been in contact with someone who was confirmed or suspected to have Coronavirus / COVID-19? No / Unsure 11/05/2020 1:48 PM CDT documented as of this encounter Miscellaneous Notes * Telephone Encounter - Caitlin Waterman RN - 11/07/2020 10:23 AM CDT Prescription approved per [facility] protocol. Caitlin Waterman RN on 11/07/2020 at 10:23 AM documented in this encounter Plan of Treatment Upcoming Encounters Date Type Department Care Team (Late st Contact Info) Description 09/07/2024 10:00 AM CDT Office Visit [address] [address] Fransisco Eddy MD 515 [facility] 88 [place] [address] 09/18/2024 2:00 PM CDT Virtual Visit [facility] [address] [place] [address] Shanna Vang PA-C [address] [place] [address] 03/29/2025 3:40 PM CDT Office Visit [address] [place] [address] Alfreda Ray PA-C [address] [place] [address] 100602 documented as of this encounter Visit Diagnoses Diagnosis HTN, goal below 140/90 Unspecified essential hypertension documented in this encounter Additional Health Concerns Infection Onset Date Last Indicated Resolved Time Rule Out COVID-19 05/08/2021 05/08/2021 05/09/2021 9:08 PM HEAT PUMP INSTALLER Assessment Noted Time PHQ-9 Depression Total Score: 0 08/31/19 21 11:22 AM HEAT PUMP INSTALLER documented as of this encounter Care Teams Sales Closer Relationship Specialty Start Date End Date Esperanza Gatica MD PCP - General Family Practice 10/13/11 12/29/21 Alfreda Ray PA-C [address] [place] [address] 613532 PCP - General Family Medicine 12/30/21 [place] [address] [place] [address] Assigned PCP 09/29/20 07/31/22 Jesú[place] [address] [place] [address] [phone] Assigned Musculoskeletal Provider 10/20/20 04/17/22 Alfreda Ray PA-C [address] [place] [address] [phone] Referring Physician Family Medicine 12/31/21 Katrin Orellana PA-C [address] [place] [address] 758665 Physician Manager Interface Dermatology 12/31/21 Shanna Vang PA-C [address] [place] [address] 406624 Assigned Cancer Care Provider 01/10/22 Fransisco Eddy MD [address] [place] [address] 230995 Assigned Rheumatology Provider 05/09/22 [place] [address] [place] GARCIA [address] Assigned Pain Medication Provider 06/29/22 09/04/22 [place] [address] [place] [place]ARCIA [address] Assigned PCP 08/15/22 08/28/22 Katrin Orellana PA-C [address] [place] [address] 125175 Assigned Surgical Provider 08/15/22 02/10/24 Cristina Hsieh, [facility] [address] [facility] [place]BETH [place] [address] Pharmacist Pharmacist 09/07/22 Alfreda Ray PA-C [address] [place] [address] Assigned Pain Medication Provider 09/05/22 09/10/23 Alfreda Ray PA-C [address] [place] [address] Assigned PCP 08/29/22 Cristina Hsieh [facility] [address] [place] [address] Assigned MTM Pharmacist 09/26/22 Dakota Tatum MD [address] [place] [address] Cardiovascular Disease 03/25/23 Dakota Tatum MD [address] [place] [address] Assigned Heart and Vascular Provider 05/01/23 [place] [address] [place] , [address] [address] Assigned Musculoskeletal Provider 04/12/24 documented as of this encounter
--- OUTSIDE RECORDS SUMMARY | 2024-07-28 14:24 | XMS_ITS | Encounter Summary ---
Author Organization [facility] Address [address] [place] [address]7 Care Team Providers Care Entertainment Agent Name Role Phone Esperanza Gatica MD Primary Care Provider + Esperanza Gatica MD Unavailable +[phone] Esperanza Gatica MD Unavailable +[phone] Esperanza Gatica MD Unavailable +[phone] Esperanza Gatica MD Unavailable +307 Esperanza Gatica MD Unavailable +[phone] Esperanza Gatica MD Unavailable +[phone] Jesús Orourke MD Unavailable Alfreda RayC Primary Care Provider + Alfreda Ray PA-C Unavailable + [phone] Katrin Orellana PA-C Unavailable [phone] Shanna VangC Unavailable +[phone] Fransisco Eddy MD Unavailable [phone] Esperanza Gatica MD Unavailable +[phone] Esperanza Gatica MD Unavailable +[phone] Katrin Orellana PA-C Unavailable Cristina Hsieh [facility] Unavailable Cory Alfreda Liu PA-C Unavailable [phone] Ho Raymustapha Liu PA-C Unavailable +[phone] Cristina Hsieh [facility] Unavailable Dakota Tatum MD Unavailable +[phone] Dakota Tatum MD Unavailable [phone] Srinivas Marie DO Unavailable [phone] Reason for Visit * Reason Onset Date Comments Hip Pain 07/08/2012 Hip pain Encounter Details Date Type Department Care Team (Late st Contact Info) Description 07/08/2012 MyC Medical Advice [address], [address] [place] [address] [place] [address] [place] [address] Hip Pain (Hip pain) Social History Tobacco Use Types Packs/Day Years Used Date Smoking Tobacco: Former Cigarettes Q uit: 06/21/1973 Smokeless Tobacco: Former Alcohol Use Standard Drinks/Week Comments Yes 0 (1 standard drink = 0.6 oz pur e alcohol) rarely Comments No Sex and Gender Information Value Date Recorded Sex Assigned at Female 08/17/2018 7:56 AM HOUSEKEEPING COORDINATOR Legal Sex Female 4:24 AM HOUSEKEEPING COORDINATOR Gender Identity Female 08/17/2018 7:56 AM HOUSEKEEPING COORDINATOR Sexual Orientation Straight 08/17/2018 7: 56 AM HOUSEKEEPING COORDINATOR documented as of this encounter Miscellaneous Notes * Telephone Encounter - Esperanza Gatica MD - 07/08/2012 10:42 AM HOUSEKEEPING COORDINATOR Ok to take flexeril, faxed and she can take the vicodin, which she was given 90 in May. Is she out?Please make appt for hip pain if not improving EKEEPING COORDINATOR documented in this encounter Plan of Treatment Upcoming Encounters Date Type Department Care Team (Late st Contact Info) Description 09/07/2024 10:00 AM CDT Office Visit [facility] [place] 65[address] [facility] 200 [place] [phone] Fransisco Eddy MD [address] [place] [address] 88 [place] [address] 09/18/2024 2:00 PM CDT Virtual Visit [facility] [address] [place] [address] 105 [place] [address] Shanna Vang PA-C [address] [place] [address] 060034 03/29/2025 3:40 PM CDT Office Visit [address] [phone] Alfreda Ray PA-C [address] [place] [address] 010932 documented as of this encounter Visit Diagnoses Diagnosis Hip pain- Primary Pain in joint, pelvic region and thigh documented in this encounter Additional Health Concerns Infection Onset Date Last Indicated Resolved Time Rule Out COVID-19 05/08/2021 05/08/2021 05/09/2021 9:08 PM HOUSEKEEPING COORDINATOR documented as of this encounter Care Teams Entertainment Agent Relationship Specialty Start Date End Date Esperanza Gatica MD PCP - General Family Practice 10/13/11 12/29/21 [place] [address] [place] [address] PCP - Assigned PCP 12/05/17 08/23/18 Alfreda Ray PA-C [address] [place] [address] PCP - General Family Medicine 12/30/21 [place] [address] [place] [address] Assigned PCP 12/05/17 09/30/19 [place] [address] [place] [address] Assigned PCP 10/01/19 03/02/20 [place] [address] [place] [address] Assigned PCP 03/03/20 05/25/20 [place] [address] [place] [address] Assigned PCP 05/26/20 09/28/20 [place] [address] [place] [address] Assigned PCP 09/29/20 07/31/22 [place] [address] [place] [address] Assigned Musculoskeletal Provider 10/20/20 04/17/22 Alfreda Ray PA-C [address] [place] [address] Referring Physician Family Medicine 12/31/21 Katrin Orellana PA-C [address] [address] Physician Machine Sweeper Brush Maker Dermatology 12/31/21 Shanna Vang PA-C [address] 910304 Assigned Cancer Care Provider 01/10/22 Fransisco Eddy MD [address] [place] [address] 678725 Assigned Rheumatology Provider 05/09/22 [place] [address] [place] [address] Assigned Pain Medication Provider 06/29/22 09/04/22 [place] [address] [address]ARCIA [address] Assigned PCP 08/15/22 08/28/22 Katrin Orellana PA-C [address] [place] [address] Assigned Surgical Provider 08/15/22 02/10/24 Cristina Hsieh, [facility] 3[address] [facility] LISBETH HERNANDEZ [address] Pharmacist Pharmacist 09/07/22 Alfreda Ray PA-C [address] [place] [address] Assigned Pain Medication Provider 09/05/22 09/10/23 Alfreda Ray PA-C [address] [place] [address] Assigned PCP 08/29/22 Cristina Hsieh, [facility] 1600 [facility] 101 [place] [address] Assigned MTM Pharmacist 09/26/22 Dakota Tatum MD [address] [place] [address] 181575 Cardiovascular Disease 03/25/23 Dakota Tatum MD [address] [place] [address] 502315 Assigned Heart and Vascular Provider 05/01/23 [place] [address] [address], [facility] [address] [place] [address] Assigned Musculoskeletal Provider 04/12/24 documented as of this encounter
--- OUTSIDE RECORDS SUMMARY | 2024-07-28 14:24 | XMS_ITS | Encounter Summary ---
Author Organization [facility] Address [address] [place] [address] Care Team Providers Care Guide Tour Name Role Phone Esperanza Gatica MD Primary Care Provider + Esperanza Gatica MD Unavailable + Jesús Orourke MD Unavailable Alfreda Ray-C Primary Care Provider + Alfreda RayC Unavailable +[phone] Katrin Orellana PA-C Unavailable +[phone] Shanna Vang PA-C Unavailable +[phone] Fransisco Eddy MD Unavailable +[phone] Esperanza Gatica MD Unavailable + Esperanza Gatica MD Unavailable + Katrin OrellanaC Unavailable +[phone] Cristina Hsieh [facility] Unavailable [phone] Alfreda Ray PA-C Unavailable +[phone] Alfreda Ray PA-C Unavailable +[phone] Cristina Hsieh [facility] Unavailable +[phone] Dakota Tatum MD Unavailable Dakota Tatum MD Unavailable Srinivas Marie DO Unavailable [phone] Encounter Details Date Type Department Care Team (Late Contact Info) Description 10/23/2020 MyC Medical Advice [facility] [place] [address] [facility] [address] [place], [place] [address] Jesú[place] [address] [place], [place] [phone] Social History Tobacco Use Types Packs/Day Years [...] Sex Assigned at Female 08/17/2018 7:56 AM GREEN BUILDING MATERIALS DISTRIBUTOR Legal Sex Female 4:24 AM GREEN BUILDING MATERIALS DISTRIBUTOR Gender Identity Female 08/17/2018 7:56 AM GREEN BUILDING MATERIALS DISTRIBUTOR Sexual Orientation Straight 08/17/2018 7: 56 AM GREEN BUILDING MATERIALS DISTRIBUTOR COVID-19 Exposure Response Date Recorded In the last month, have you been in contact with someone who was confirmed or suspected to have Coronavirus / COVID-19? No / Unsure 10/16/2020 2:03 PM CDT documented as of this encounter Plan of Treatment Upcoming Encounters Date Type Department Care Team (Late Contact Info) Description 09/07/2024 10:00 AM CDT Office Visit [facility] [address] 200 [place] [address] Fransisco Eddy MD [address] [place] [address] 88 [place] [address] 09/18/2024 2:00 PM CDT Virtual Visit [facility] for Ble[facility]ot[facility] [address] 105 [place] [address] Shanna Vang PA-C [address] [place] [address] 03/29/2025 3:40 PM CDT Office Visit [address] [address] Alfreda Ray PA-C [address] [place] [address] 726952 documented as of this encounter Visit Diagnoses Not on filedocumented in this encounter Additional Health Concerns Infection Onset Date Last Indicated Resolved Time Rule Out COVID-19 05/08/2021 05/08/2021 05/09/2021 9:08 PM GREEN BUILDING MATERIALS DISTRIBUTOR Assessment Noted Time PHQ-9 Depression Total Score: 0 08/31/19 21 11:22 AM GREEN BUILDING MATERIALS DISTRIBUTOR documented as of this encounter Care Teams Guide Tour Relationship Specialty Start Date End Date Esperanza Gatica MD PCP - General Family Practice 10/13/11 12/29/21 Alfreda Ray PA-C [address] [place] [address] PCP - General Family Medicine 12/30/21 [place] [address] [place] [address] Assigned PCP 09/29/20 07/31/22 [place] [address] [place] [address] Assigned Musculoskeletal Provider 10/20/20 04/17/22 Alfreda Ray PA-C [address] [place] [address] Referring Physician Family Medicine 12/31/21 Katrin Orellana PA-C [address] [place] [address] Physician Hvac Technician Dermatology 12/31/21 Shanna Vang PA-C [address] [address] Assigned Cancer Care Provider 01/10/22 Fransisco Eddy MD [address] [place] [address] Assigned Rheumatology Provider 05/09/22 [place] [address] [place] [address] Assigned Pain Medication Provider 06/29/22 09/04/22 [place] [address] [place] [address] Assigned PCP 08/15/22 08/28/22 Katrin Orellana PA-C [address] [place] [address]108 Assigned Surgical Provider 08/15/22 02/10/24 Cristina Hsieh [facility] [address] [place] [address] LISBETH HERNANDEZ [address] Pharmacist Pharmacist 09/07/22 Alfreda Ray PA-C [address] [place] [address] Assigned Pain Medication Provider 09/05/22 09/10/23 Alfreda Ray PA-C [address] [place] [address] Assigned PCP 08/29/22 Cristina Hsieh, [facility] [address] [place] [address] 22684 Assigned MTM Pharmacist 09/26/22 Dakota Tatum MD [address] [place] [address] Cardiovascular Disease 03/25/23 Dakota Tatum MD [address] [place] [address] 42963 Assigned Heart and Vascular Provider 05/01/23 [place] [address] [address], [address] [address] Assigned Musculoskeletal Provider 04/12/24 documented as of this encounter
--- OUTSIDE RECORDS SUMMARY | 2024-07-28 14:24 | XMS_ITS | Encounter Summary ---
Author Organization [facility] Address [address] [place] [address] Care Team Providers Care Mechanical Integrity Engineer Name Role Phone Esperanza Gatica MD Primary Care Provider + Esperanza Gatica MD Unavailable +[phone] Esperanza Gatica MD Unavailable +[phone] Esperanza Gatica MD Unavailable +246 Esperanza Gatica MD Unavailable +[phone] Esperanza Gatica MD Unavailable +[phone] Esperanza Gatica MD Unavailable +[phone] Jesús Orourke MD Unavailable Alfreda RayC Primary Care Provider + Alfreda Ray PA-C Unavailable + [phone] Katrin Orellana PA-C Unavailable +[phone] Shanna VangC Unavailable +[phone] Fransisco Eddy MD Unavailable +[phone] Esperanza Gatica MD Unavailable +[phone] Esperanza Gatica MD Unavailable +[phone] Katrin Orellana PA-C Unavailable Cristina Hsieh [facility] Unavailable Ray, Alfreda Liu PA-C Unavailable +[phone] Cory Alfreda Liu PA-C Unavailable +[phone] Cristina Hsieh [facility] Unavailable +[phone] Dakota Tatum MD Unavailable Dakota Tatum MD Unavailable Srinivas Marie DO Unavailable [phone] Reason for Visit * Reason Onset Date Comments Refill Request 06/24/2013 Lisinopril-HCTZ Encounter Details Date Type Department Care Team (Late st Contact Info) Description 06/24/2013 MyC Refill [address], [address] [place] [address] [place] [address] [place] [address] Refill Request (Lisinopril-HCTZ) Social History Tobacco Use Types Packs/Day Years Used Date Smoking Tobacco: Former Cigarettes Q uit: 06/21/1973 Smokeless Tobacco: Former Alcohol Use Standard Drinks/Week Comments Yes 0 (1 standard drink = 0.6 oz pur e alcohol) rarely Comments No Sex and Gender Information Value Date Recorded Sex Assigned at Female 08/17/2018 7:56 AM BLUE LEATHER SETTER Legal Sex Female 4:24 AM BLUE LEATHER SETTER Gender Identity Female 08/17/2018 7:56 AM BLUE LEATHER SETTER Sexual Orientation Straight 08/17/2018 7: 56 AM BLUE LEATHER SETTER documented as of this encounter Miscellaneous [...] Will route to provider. Leigha Rinaldi RN LEATHER SETTER * Telephone Encounter - Leigha Rinaldi - 06/26/2013 7:59 AM CSTMessage [facility] Original authorizing provider: Esperanza Gatica MD Alexandria Bradshaw would like a refill of the following medications: lisinopril-hydrochlorothiazide (PRINZIDE,ZESTORETIC) 10-12.5 MG per tablet [Esperanza Gatica MD] Preferred pharmacy: [id number] Comment: Sent from my iPadI called this in to the pharmacy but it hasn't been filled. I take the last one onWednesday (6th). LEATHER SETTER documented in this encounter Plan of Treatment Upcoming Encounters Date Type Department Care Team (Late st Contact Info) Description 09/07/2024 10:00 AM CDT Office Visit [facility] [address] 200 [place] [address] Fransisco Eddy MD [address] [place] [address] 88 [place], [place] [address] 09/18/2024 2:00 PM CDT Virtual Visit [facility] [place] [address] 105 [place] [address] Shanna Vang PA-C [address] [place] [address] 03/29/2025 3:40 PM CDT Office Visit [address] [place] [phone] Alfreda Ray PA-C [address] [place] [address] 904782 documented as of this encounter Visit Diagnoses Diagnosis HTN (hypertension), benign Essential hypertension, benign documented in this encounter Additional Health Concerns Infection Onset Date Last Indicated Resolved Time Rule Out COVID-19 05/08/2021 05/08/2021 05/09/2021 9:08 PM BLUE LEATHER SETTER documented as of this encounter Care Teams Mechanical Integrity Engineer Relationship Specialty Start Date End Date Esperanza Gatica MD PCP - General Family Practice 10/13/11 12/29/21 [place] [address] [address]ISB[address] GARCIA [address] PCP - Assigned PCP 12/05/17 08/23/18 Alfreda Ray PA-C [address] [place] [address] PCP - General Family Medicine 12/30/21 [place] [address] [address]IA [address] Assigned PCP 12/05/17 09/30/19 [place] [address] [address] [address] Assigned PCP 10/01/19 03/02/20 [place] [address] [address] [address] Assigned PCP 03/03/20 05/25/20 [place] [address] [address] GARCIA [address] Assigned PCP 05/26/20 09/28/20 [place] [address] [place] [id number] Assigned PCP 09/29/20 07/31/22 Jesú[place] [address] [place] [place] [address] Assigned Musculoskeletal Provider 10/20/20 04/17/22 Alfreda Ray PA-C [address] [place] [address] [phone] Referring Physician Family Medicine 12/31/21 Katrin Orellana PA-C [address] [place] [address] 929385 Physician Installation Specialist Dermatology 12/31/21 Shanna Vang PA-C [address] [address] Assigned Cancer Care Provider 01/10/22 Fransisco Eddy MD [address] [place] [address] 565445 Assigned Rheumatology Provider 05/09/22 [place] [address] [place] [id number] Assigned Pain Medication Provider 06/29/22 09/04/22 [place] [address] [place] [id number] Assigned PCP 08/15/22 08/28/22 Katrin Orellana PA-C [address] [place] [address] 964095 Assigned Surgical Provider 08/15/22 02/10/24 Cristina Hsieh [facility] [address] [facility] [place] [id number] Pharmacist Pharmacist 09/07/22 Alfreda Ray PA-C [address] [place] [address] 935752 Assigned Pain Medication Provider 09/05/22 09/10/23 Alfreda Ray PA-C [address] [place] [address] 617862 Assigned PCP 08/29/22 Cristina Hsieh [facility] [address] [place] [address] Assigned MTM Pharmacist 09/26/22 Dakota Tatum MD [address] [place] [address] 369315 Cardiovascular Disease 03/25/23 Dakota Tatum MD [address] [place] [address] 086435 Assigned Heart and Vascular Provider 05/01/23 [place] [address] [place] [address] [facility] [address] [place] [address] Assigned Musculoskeletal Provider 04/12/24 documented as of this encounter
--- OUTSIDE RECORDS SUMMARY | 2024-07-28 14:24 | XMS_ITS | Encounter Summary ---
Author Organization [facility] Address [address] [place] [address] Care Team Providers Care Physician Interventional Cardiologist Name Role Phone Esperanza Gatica MD Primary Care Provider + Esperanza Gatica MD Unavailable +[phone] Esperanza Gatica MD Unavailable +[phone] Esperanza Gatica MD Unavailable +532 Esperanza Gatica MD Unavailable +539 Esperanza Gatica MD Unavailable +673 Esperanza Gatica MD Unavailable +[phone] Jesús Orourke MD Unavailable Alfreda RayC Primary Care Provider + Alfreda Ray PA-C Unavailable + [phone] Katrin Orellana PA-C Unavailable +[phone] Shanna VangC Unavailable +[phone] Fransisco Eddy MD Unavailable +[phone] Esperanza Gatica MD Unavailable +[phone] Esperanza Gatica MD Unavailable +[phone] Katrin Orellana PA-C Unavailable Cristina Hsieh [facility] Unavailable Alfreda Ray Alexa KING Unavailable +[phone] Alfreda Ray Alexa KING Unavailable +[phone] Cristina Hsieh [facility] Unavailable [phone] Dakota Tatum MD Unavailable +[phone] Dakota Tatum MD Unavailable [phone] Srinivas Marie DO Unavailable [phone] Reason for Visit * Reason Onset Date Comments Refill Request 07/31/2013 tramadol Encounter Details Date Type Department Care Team (Late st Contact Info) Description 07/31/2013 MyC Refill [address], [facility] 100 [place] [address] [place] [address] [place] [address] Refill Request (tramadol) Social History Tobacco Use Types Packs/Day Years Used Date Smoking Tobacco: Former Cigarettes Q uit: 06/21/1973 Smokeless Tobacco: Former Alcohol Use Standard Drinks/Week Comments Yes 0 (1 standard drink = 0.6 oz pur e alcohol) rarely Comments No Sex and Gender Information Value Date Recorded Sex Assigned at Female 08/17/2018 7:56 AM DRYING MACHINE TENDER Legal Sex Female 4:24 AM DRYING MACHINE TENDER Gender Identity Female 08/17/2018 7:56 AM DRYING MACHINE TENDER Sexual Orientation Straight 08/17/2018 7: 56 AM DRYING MACHINE TENDER documented as of this encounter Miscellaneous Notes * Telephone Encounter - Diane Macedo - 07/31/2013 2:16 PM CST Does not meet standard requirement for RN refill protocol. Medication: tramadol Last OV: 07/14/12 Provider: MD ZAIDA Reason for visit: HTN, CKD, etc... Last refill: 06/22/13 #30 Please refill if appropriate. Thank you! Diane Macedo RN [facility] [employer] NG MACHINE TENDER * Telephone Encounter - Hellen, Diane - 07/31/2013 2:16 PM CSTMessage from MyChart: Original authorizing provider: MD Alexandria Brannon Zenobia Leeann would like a refill of the following medications: traMADol (ULTRAM) 50 MG tablet [Esperanza Gatica MD] Preferred pharmacy: [id number] Comment: NG MACHINE TENDER documented in this encounter Plan of Treatment Upcoming Encounters Date Type Department Care Team (Late st Contact Info) Description 09/07/2024 10:00 AM CDT Office Visit [facility] [address] [address] Fransisco Eddy MD [address] [place] [address] 09/18/2024 2:00 PM CDT Virtual Visit [facility]ot[facility] [address] 105 [place] [address] Shanna Vang PA-C [address] [address] 03/29/2025 3:40 PM CDT Office Visit [address] [phone] Alfreda Ray PA-C [address] [place] [address] 317222 documented as of this encounter Visit Diagnoses Diagnosis Knee pain Pain in joint, lower leg documented in this encounter Additional Health Concerns Infection Onset Date Last Indicated Resolved Time Rule Out COVID-19 05/08/2021 05/08/2021 05/09/2021 9:08 PM DRYING MACHINE TENDER documented as of this encounter Care Teams Physician Interventional Cardiologist Relationship Specialty Start Date End Date Esperanza Gatica MD PCP - General Family Practice 10/13/11 12/29/21 [place] [address] [address]ARCIA [address] PCP - Assigned PCP 12/05/17 08/23/18 Alfreda Ray PA-C [address] [place] [address] PCP - General Family Medicine 12/30/21 [place] [address] [address]ARCIA [address] Assigned PCP 12/05/17 09/30/19 [place] [address] [address] [address] Assigned PCP 10/01/19 03/02/20 [place] [address] [address]IA [address] Assigned PCP 03/03/20 05/25/20 [place] [address] [address]ARCIA [address] Assigned PCP 05/26/20 09/28/20 [place] [address] [address] GARCIA [address] Assigned PCP 09/29/20 07/31/22 [place] [address] [address] Assigned Musculoskeletal Provider 10/20/20 04/17/22 Alfreda Ray PA-C [address] [place] [address] [phone] Referring Physician Family Medicine 12/31/21 Katrin Orellana PA-C [address] [place] [address] 172515 Physician Account Assistant Dermatology 12/31/21 Shanna Vang PA-C [address] [place] [address] 897604 Assigned Cancer Care Provider 01/10/22 Fransisco Eddy MD [address] [place] [address] 578155 Assigned Rheumatology Provider 05/09/22 [place] [address] [address] [address] Assigned Pain Medication Provider 06/29/22 09/04/22 [place] [address] [address] GARCIA [address] Assigned PCP 08/15/22 08/28/22 Katrin Orellana PA-C [address] [place] [address] 983735 Assigned Surgical Provider 08/15/22 02/10/24 Cristina Hsieh, [facility] [address] [facility] LISBETH HERNANDEZ [address] Pharmacist Pharmacist 09/07/22 Alfreda Ray PA-C [address] [place] [address] 336842 Assigned Pain Medication Provider 09/05/22 09/10/23 Alfreda Ray PA-C [address] [place] [address] Assigned PCP 08/29/22 Cristina Hsieh [facility] [address] [place] [address] Assigned MTM Pharmacist 09/26/22 Dakota Tatum MD [address] [place] [address]017 Cardiovascular Disease 03/25/23 Dakota Tatum MD [address] [place] [address]30 Assigned Heart and Vascular Provider 05/01/23 [place] [address] CE[address] GAST[address]UM, [address] [address] Assigned Musculoskeletal Provider 04/12/24 documented as of this encounter
--- OUTSIDE RECORDS SUMMARY | 2024-07-28 14:24 | XMS_ITS | Encounter Summary ---
Author Organization [place] Address [address] [place] [address] Care Team Providers Care Furniture Delivery Driver Name Role Phone Esperanza Gatica MD Primary Care Provider + Esperanza Gatica MD Unavailable +[phone] Esperanza Gatica MD Unavailable +068 Esperanza Gatica MD Unavailable +901 Esperanza Gatica MD Unavailable +297 Esperanza Gatica MD Unavailable +[phone] Esperanza Gatica MD Unavailable +[phone] Jesús Orourke MD Unavailable Alfreda RayC Primary Care Provider + Alfreda Ray PA-C Unavailable + [phone] Katrin Orellana PA-C Unavailable +[phone] Shanna VangC Unavailable +[phone] Fransisco Eddy MD Unavailable +[phone] Esperanza Gatica MD Unavailable +[phone] Esperanza Gatica MD Unavailable +[phone] Katrin Orellana PA-C Unavailable Cristina Hsieh [facility] Unavailable Alfreda Ray Alexa KING Unavailable +[phone] Alfreda Ray Alexa KING Unavailable +[phone] Cristina Hsieh [facility] Unavailable [phone] Dakota Tatum MD Unavailable [phone] Dakota Tatum MD Unavailable [phone] Srinivas Marie DO Unavailable [phone] Reason for Visit * Reason Onset Date Comments Refill Request 01/14/2013 vicodin Encounter Details Date Type Department Care Team (Late st Contact Info) Description 01/14/2013 MyC Refill M [address], [address] [place] [address] [place] [address] [place] [address] Refill Request (vicodin) Social History Tobacco Use Types Packs/Day Years Used Date Smoking Tobacco: Former Cigarettes Q uit: 06/21/1973 Smokeless Tobacco: Former Alcohol Use Standard Drinks/Week Comments Yes 0 (1 standard drink = 0.6 oz pur e alcohol) rarely Comments No Sex and Gender Information Value Date Recorded Sex Assigned at Female 08/17/2018 7:56 AM GARBAGE STOKER Legal Sex Female 4:24 AM GARBAGE STOKER Gender Identity Female 08/17/2018 7:56 AM GARBAGE STOKER Sexual Orientation Straight 08/17/2018 7: 56 AM GARBAGE STOKER documented as of this encounter Miscellaneous Notes [...] per tablet [Esperanza Gatica MD] Preferred pharmacy: [id number] Comment: Sent from my iPad documented in this encounter Plan of Treatment Upcoming Encounters Date Type Department Care Team (Late st Contact Info) Description 09/07/2024 10:00 AM CDT Office Visit [facility] [address] [phone] Fransisco Eddy MD [address] [place] [address] 922715 09/18/2024 2:00 PM CDT Virtual Visit [facility] [place] [address] 105 [place] [phone] Shanna Vang PA-C [address] [place] [address] 03/29/2025 3:40 PM CDT Office Visit [address] [phone] Alfreda Ray PA-C [address] [place] [address] [phone] documented as of this encounter Visit Diagnoses Diagnosis Osteoarthritis- Primary Osteoarthrosis, unspecified whether generalized or localized, unspecified site documented in this encounter Additional Health Concerns Infection Onset Date Last Indicated Resolved Time Rule Out COVID-19 05/08/2021 05/08/2021 05/09/2021 9:08 PM GARBAGE STOKER documented as of this encounter Care Teams Furniture Delivery Driver Relationship Specialty Start Date End Date Esperanza Gatica MD PCP - General Family Practice 10/13/11 12/29/21 [place] [address] [address]ARCIA [address] PCP - Assigned PCP 12/05/17 08/23/18 Alfreda Ray PA-C [address] [place] [address]571 PCP - General Family Medicine 12/30/21 [place] [address] [address] GARCIA [address] Assigned PCP 12/05/17 09/30/19 [place] [address] [address] GARCIA 97776 Assigned PCP 10/01/19 03/02/20 [place] [address] [address] GARCIA 23977 Assigned PCP 03/03/20 05/25/20 [place] [address] [address] GARCIA 60364 Assigned PCP 05/26/20 09/28/20 [place] [address] [address] GARCIA [address]9613 Assigned PCP 09/29/20 07/31/22 [place] [address] [place] [address] [address] Assigned Musculoskeletal Provider 10/20/20 04/17/22 Alfreda Ray PA-C [address] [place] [address] 235752 Referring Physician Family Medicine 12/31/21 Katrin Orellana PA-C [address] [place] [address]22 Physician Hotel Room Attendant Dermatology 12/31/21 Shanna Vang PA-C [address] [place] [address] 482624 Assigned Cancer Care Provider 01/10/22 Fransisco Eddy MD [address] [place] [address] 614745 Assigned Rheumatology Provider 05/09/22 [place] [address] [address] GARCIA [address] Assigned Pain Medication Provider 06/29/22 09/04/22 [place] [address] [address] GARCIA 31367 Assigned PCP 08/15/22 08/28/22 Katrin Orellana PA-C [address] [place] [address] 14890 Assigned Surgical Provider 08/15/22 02/10/24 Cristina Hsieh [facility] [address] [place] [address] LISBETH HERNANDEZ [address] Pharmacist Pharmacist 09/07/22 Alfreda Ray PA-C [address] [place] [address] 96637 Assigned Pain Medication Provider 09/05/22 09/10/23 Alfreda Ray PA-C [address] [place] [address] 574722 Assigned PCP 08/29/22 Cristina Hsieh [facility] [address] [place] [address] Assigned MTM Pharmacist 09/26/22 Dakota Tatum MD [address] [place] [address]351 Cardiovascular Disease 03/25/23 Dakota Tatum MD [address] [place] [address]70 Assigned Heart and Vascular Provider 05/01/23 [place] [address] [place] [address] [address] Assigned Musculoskeletal Provider 04/12/24 documented as of this encounter
--- OUTSIDE RECORDS SUMMARY | 2024-07-28 14:24 | XMS_ITS | Encounter Summary ---
Author Organization [place] Address [address] [place] [address] 14707 Care Team Providers Care Wire Bound Box Machine Operator Name Role Phone Esperanza Gatica MD Primary Care Provider + Esperanza Gatica MD Unavailable + Jesús Orourke MD Unavailable Alfreda Ray-C Primary Care Provider + Alfreda RayC Unavailable +[phone] Katrin Orellana PA-C Unavailable +[phone] Shanna Vang PA-C Unavailable +[phone] Fransisco Eddy MD Unavailable +[phone] Esperanza Gatica MD Unavailable + Esperanza Gatica MD Unavailable + Katrin OrellanaC Unavailable +[phone] Cristina Hsieh [facility] Unavailable +[phone] Alfreda Ray PA-C Unavailable +2600 Alfreda Ray PA-C Unavailable +2600 Cristina Hsieh [facility] Unavailable +[phone] Dakota Tatum MD Unavailable Dakota Tatum MD Unavailable +[phone] Srinivas Marie DO Unavailable [phone] Encounter Details Date Type Department Care Team (Late Contact Info) Description 10/29/2020 MyC Medical Advice [facility] [address] [place] [address] [place] [address] [place] [address] Social History Tobacco Use Types [...] Sex Assigned at Female 08/17/2018 7:56 AM SHEEP HERDER Legal Sex Female 4:24 AM SHEEP HERDER Gender Identity Female 08/17/2018 7:56 AM SHEEP HERDER Sexual Orientation Straight 08/17/2018 7: 56 AM SHEEP HERDER COVID-19 Exposure Response Date Recorded In the last month, have you been in contact with someone who was confirmed or suspected to have Coronavirus / COVID-19? No / Unsure 10/29/2020 2:27 PM CDT documented as of this encounter Plan of Treatment Upcoming Encounters Date Type Department Care Team (Late Contact Info) Description 09/07/2024 10:00 AM CDT Office Visit [facility] [place] 6525 [facility] 200 [place] [address] Fransisco Eddy MD [address] [place] [address] 88 [place] [address] 09/18/2024 2:00 PM CDT Virtual Visit [facility] [address] [place] [address] Shanna Vang PA-C [address] [place] [address] 03/29/2025 3:40 PM CDT Office Visit [address] [address] Alfreda Ray PA-C [address] [place] [address] 117302 documented as of this encounter Visit Diagnoses Not on filedocumented in this encounter Additional Health Concerns Infection Onset Date Last Indicated Resolved Time Rule Out COVID-19 05/08/2021 05/08/2021 05/09/2021 9:08 PM SHEEP HERDER Assessment Noted Time PHQ-9 Depression Total Score: 0 08/31/19 21 11:22 AM SHEEP HERDER documented as of this encounter Care Teams Wire Bound Box Machine Operator Relationship Specialty Start Date End Date Esperanza Gatica MD PCP - General Family Practice 10/13/11 12/29/21 Alfreda Ray PA-C [address] [place] [address] PCP - General Family Medicine 12/30/21 [place] [address] [place] [address] Assigned PCP 09/29/20 07/31/22 Jesú[place] [address] [place] [address] Assigned Musculoskeletal Provider 10/20/20 04/17/22 Alfreda Ray PA-C [address] [place] [address] Referring Physician Family Medicine 12/31/21 Katrin Orellana PA-C [address] [place] [address] Physician Housing Property Manager Dermatology 12/31/21 Shanna Vang PA-C [address] [address] Assigned Cancer Care Provider 01/10/22 Fransisco Eddy MD [address] [place] [address] Assigned Rheumatology Provider 05/09/22 [place] [address] [place] [address] Assigned Pain Medication Provider 06/29/22 09/04/22 [place] [address] [place] [address] Assigned PCP 08/15/22 08/28/22 Katrin Orellana PA-C [address] [place] [address] Assigned Surgical Provider 08/15/22 02/10/24 Cristina Hsieh [facility] 3[address] [facility] L[place]BETH HERNANDEZ [address] Pharmacist Pharmacist 09/07/22 Alfreda Ray PA-C [address] [place] [address] Assigned Pain Medication Provider 09/05/22 09/10/23 Alfreda Ray PA-C [address] [place] [address] Assigned PCP 08/29/22 Cristina Hsieh, [facility] [address] [place] [address] Assigned MTM Pharmacist 09/26/22 Dakota Tatum MD [address] [place] [address] Cardiovascular Disease 03/25/23 Dakota Tatum MD [address] [place] [address] Assigned Heart and Vascular Provider 05/01/23 [place] [address] [address], [address] [address] Assigned Musculoskeletal Provider 04/12/24 documented as of this encounter
--- OUTSIDE RECORDS SUMMARY | 2024-07-28 14:24 | XMS_ITS | Encounter Summary ---
Author Organization [place] Address [address] [place] [address] Care Team Providers Care Mechanical Cad Designer Name Role Phone Esperanza Gatica MD Primary Care Provider + Esperanza Gatica MD Unavailable +[phone] Esperanza Gatica MD Unavailable +[phone] Esperanza Gatica MD Unavailable +[phone] Esperanza Gatica MD Unavailable +[phone] Esperanza Gatica MD Unavailable +824 Esperanza Gatica MD Unavailable +[phone] Jesús Orourke MD Unavailable Alfreda RayC Primary Care Provider + Alfreda Ray PA-C Unavailable + [phone] Katrin Orellana PA-C Unavailable +[phone] Shanna VangC Unavailable +[phone] Fransisco Eddy MD Unavailable +[phone] Esperanza Gatica MD Unavailable +[phone] Esperanza Gatica MD Unavailable +[phone] Katrin Orellana PA-C Unavailable [phone] Cristina Hsieh [facility] Unavailable Cory Alfreda Liu PA-C Unavailable [phone] Alfreda Ray Alexa KING Unavailable +[phone] Cristina Hsieh [facility] Unavailable Dakota Tatum MD Unavailable Dakota Tatum MD Unavailable Srinivas Marei DO Unavailable [phone] Reason for Visit * Reason Onset Date Comments Refill Request 08/30/2013 Multiple meds Encounter Details Date Type Department Care Team (Late st Contact Info) Description 08/30/2013 MyC Medical Advice [place] [address]755 [facility], [facility] 100 [place] [address] [place] [address] [place] [address] Refill Request (Multiple meds) Social History Tobacco Use Types Packs/Day Years Used Date Smoking Tobacco: Former Cigarettes Q uit: 06/21/1973 Smokeless Tobacco: Former Alcohol Use Standard Drinks/Week Comments Yes 0 (1 standard drink = 0.6 oz pur e alcohol) rarely Comments No Sex and Gender Information Value Date Recorded Sex Assigned at Female 08/17/2018 7:56 AM COFFEE BAR ATTENDANT Legal Sex Female 4:24 AM COFFEE BAR ATTENDANT Gender Identity Female 08/17/2018 7:56 AM COFFEE BAR ATTENDANT Sexual Orientation Straight 08/17/2018 7: 56 AM COFFEE BAR ATTENDANT documented as of this encounter Plan of Treatment Upcoming Encounters Date Type Department Care Team (Late st Contact Info) Description 09/07/2024 10:00 AM CDT Office Visit [address] 200 [place] [address] Fransisco Eddy MD [address] [place] [address] 09/18/2024 2:00 PM CDT Virtual Visit [facility] [address] [place] [address] 105 [place] [address] Shanna aVng PA-C [address] [place] [address] 03/29/2025 3:40 PM CDT Office Visit [address] [place] [address] Alfreda Ray PA-C [address] [place] [address] 913412 documented as of this encounter Visit Diagnoses Diagnosis HTN (hypertension), benign- Primary Essential hypertension, benign Insomnia, unspecified Hyperlipidemia LDL goal <160 Other and unspecified hyperlipidemia documented in this encounter Additional Health Concerns Infection Onset Date Last Indicated Resolved Time Rule Out COVID-19 05/08/2021 05/08/2021 05/09/2021 9:08 PM COFFEE BAR ATTENDANT documented as of this encounter Care Teams Mechanical Cad Designer Relationship Specialty Start Date End Date Esperanza Gatica MD PCP - General Family Practice 10/13/11 12/29/21 [place] [address] [address] GARCIA [address] PCP - Assigned PCP 12/05/17 08/23/18 Alfreda Ray PA-C [address] [place] [address] 670542 PCP - General Family Medicine 12/30/21 [place] [address] [address] [address] Assigned PCP 12/05/17 09/30/19 [place] [address] [place] [address] Assigned PCP 10/01/19 03/02/20 [place] [address] [place] [address] Assigned PCP 03/03/20 05/25/20 [place] [address] [address] [address] Assigned PCP 05/26/20 09/28/20 [place] [address] [place] [address] Assigned PCP 09/29/20 07/31/22 Jesú[place] [address] [place] [address] [place] [address] Assigned Musculoskeletal Provider 10/20/20 04/17/22 Alfreda Ray PA-C [address] [place] [address] 453542 Referring Physician Family Medicine 12/31/21 Katrin Orellana PA-C [address] [place] [address] 138805 Physician Lawn Service Supervisor Dermatology 12/31/21 Shanna Vang PA-C [address] [place] [address] Assigned Cancer Care Provider 01/10/22 Fransisco Eddy MD [address] [place] [address] 88 [place] [address] Assigned Rheumatology Provider 05/09/22 [place] [address] [place] [address] Assigned Pain Medication Provider 06/29/22 09/04/22 [place] [address] [place] [address] Assigned PCP 08/15/22 08/28/22 Katrin Orellana PA-C [address] [place] [address] Assigned Surgical Provider 08/15/22 02/10/24 [place] [address] [place] [address] [place] [address] Pharmacist Pharmacist 09/07/22 Alfreda Ray PA-C [address] [place] [address] Assigned Pain Medication Provider 09/05/22 09/10/23 Alfreda Ray PA-C [address] [place] [address] Assigned PCP 08/29/22 Cristina Hsieh [facility] [address] [address] Assigned MTM Pharmacist 09/26/22 Dakota Tatum MD [address] [place] [address] Cardiovascular Disease 03/25/23 Dakota Tatum MD [address] [place] [address] Assigned Heart and Vascular Provider 05/01/23 [place] [address] [address], [facility] [address] [place] [address] Assigned Musculoskeletal Provider 04/12/24 documented as of this encounter
--- OUTSIDE RECORDS SUMMARY | 2024-07-28 14:24 | XMS_ITS | Encounter Summary ---
Author Organization [place] [facility] Address [address] [place] [address] Care Team Providers Care Tutor Coordinator Name Role Phone Esperanza Gatica MD Primary Care Provider + Esperanza Gatica MD Unavailable + Esperanza Gatica MD Unavailable + Jesús Orourke MD Unavailable Alfreda Ray-C Primary Care Provider + Alfreda Ray-C Unavailable +260 Katrin Orellana PA-C Unavailable +[phone] Shanna Vang PA-C Unavailable +[phone] Fransisco Eddy MD Unavailable +[phone] Esperanza Gatica MD Unavailable + Esperanza Gatica MD Unavailable + Katrin OrellanaC Unavailable +[phone] Cristina Hsieh [facility] Unavailable +[phone] Alfreda Ray PA-C Unavailable +[phone] Alfreda Ray PA-C Unavailable +260 Cristina Hsieh [facility] Unavailable +[phone] Dakota Tatum MD Unavailable +[phone] Dakota Tatum MD Unavailable + Cynthia, Srinivas Unavailable [phone] Encounter Details Date Type Department Care Team (Late st Contact Info) Description 07/04/2020 MyC Medical Advice [address] [address] [place] [address] [place] [address] Social History Tobacco Use Types Packs/Day Years [...] Sex Assigned at Female 08/17/2018 7:56 AM STEVEDORING SUPERVISOR Legal Sex Female 4:24 AM STEVEDORING SUPERVISOR Gender Identity Female 08/17/2018 7:56 AM STEVEDORING SUPERVISOR Sexual Orientation Straight 08/17/2018 7: 56 AM STEVEDORING SUPERVISOR documented as of this encounter Plan of Treatment Upcoming Encounters Date Type Department Care Team (Late st Contact Info) Description 09/07/2024 10:00 AM CDT Office Visit [facility] [address] 200 [place] [address] Fransisco Eddy MD [address] [place] [address] 88 [place], [place] 762415 09/18/2024 2:00 PM CDT Virtual Visit [facility] [address] [place] [address] 105 [place] [address] Shanna Vang, PA-C [address] [place] [phone] 03/29/2025 3:40 PM CDT Office Visit [address] [phone] Alfreda Ray PA-C [address] [place] [address] 392672 documented as of this encounter Visit Diagnoses Not on filedocumented in this encounter Additional Health Concerns Infection Onset Date Last Indicated Resolved Time Rule Out COVID-19 05/08/2021 05/08/2021 05/09/2021 9:08 PM STEVEDORING SUPERVISOR Assessment Noted Time PHQ-9 Depression Total Score: 1 08/20/19 1:44 PM STEVEDORING SUPERVISOR documented as of this encounter Care Teams Tutor Coordinator Relationship Specialty Start Date End Date Esperanza Gatica MD PCP - General Family Practice 10/13/11 12/29/21 Alfreda Ray PA-C [address] [place] [address] 762962 PCP - General Family Medicine 12/30/21 [place] [address] [address] [address] Assigned PCP 05/26/20 09/28/20 [place] [address] [address] [address] Assigned PCP 09/29/20 07/31/22 [place] [address] [place] [address] Assigned Musculoskeletal Provider 10/20/20 04/17/22 Alfreda Ray PA-C [address] [place] [address] Referring Physician Family Medicine 12/31/21 Katrin Orellana PA-C [address] [place] [address] 478375 Physician Director Dietetics Department Dermatology 12/31/21 Shanna Vang PA-C [address] 224374 Assigned Cancer Care Provider 01/10/22 Fransisco Eddy MD [address] [place] [address] 912515 Assigned Rheumatology Provider 05/09/22 [place] [address] [place] [address] Assigned Pain Medication Provider 06/29/22 09/04/22 [place] [address] [place] [address] Assigned PCP 08/15/22 08/28/22 Katrin Orellana PA-C [address] [place] [address] 342395 Assigned Surgical Provider 08/15/22 02/10/24 Cristina Hsieh, [facility] [address] [facility] [place]ETH HERNANDEZ [address] Pharmacist Pharmacist 09/07/22 Alfreda Ray PA-C [address] [place] [address] Assigned Pain Medication Provider 09/05/22 09/10/23 Alfreda Ray PA-C [address] [place] [address] Assigned PCP 08/29/22 Cristina Hsieh, [facility] [address] [address] Assigned MTM Pharmacist 09/26/22 Dakota Tatum MD [address] [place] [address] Cardiovascular Disease 03/25/23 Dakota Tatum MD [address] [place] [address] Assigned Heart and Vascular Provider 05/01/23 [place] [address] [place] , [address] [address] Assigned Musculoskeletal Provider 04/12/24 documented as of this encounter
--- OUTSIDE RECORDS SUMMARY | 2024-07-28 14:24 | XMS_ITS | Encounter Summary ---
Author Organization [facility] Address [address] [place] [address] Care Team Providers Care Chief Of Field Operations Name Role Phone Esperanza Gatica MD Primary Care Provider + Esperanza Gatica MD Unavailable + Jesús Orourke MD Unavailable Alfreda Ray-C Primary Care Provider + Alfreda RayC Unavailable +260 Katrin Orellana PA-C Unavailable +[phone] Shanna Vang PA-C Unavailable +[phone] Fransisco Eddy MD Unavailable +[phone] Esperanza Gatica MD Unavailable + Esperanza Gatica MD Unavailable + Katrin OrellanaC Unavailable +[phone] Cristina Hsieh [facility] Unavailable +[phone] Alfreda Ray PA-C Unavailable +2600 Alfreda Ray PA-C Unavailable +2600 Cristina Hsieh [facility] Unavailable +[phone] Dakota Tatum MD Unavailable Dakota Tatum MD Unavailable + [phone] Srinivas Marie DO Unavailable [phone] Reason for Visit * Reason Onset Date Comments Refill Request 10/27/2020 Encounter Details Date Type Department Care Team ([facility] Contact Info) Description 10/27/2020 MyC Refill [address], [address] [place] [address] [place] [address] [place] [address] Refill Request Social History Tobacco [...] Sex Assigned at Female 08/17/2018 7:56 AM MERCHANDISE PLANNING MANAGER Legal Sex Female 4:24 AM MERCHANDISE PLANNING MANAGER Gender Identity Female 08/17/2018 7:56 AM MERCHANDISE PLANNING MANAGER Sexual Orientation Straight 08/17/2018 7: 56 AM MERCHANDISE PLANNING MANAGER COVID-19 Exposure Response Date Recorded In the last month, have you been in contact with someone who was confirmed or suspected to have Coronavirus / COVID-19? No / Unsure 10/29/2020 2:27 PM CDT documented as of this encounter Plan of Treatment Upcoming Encounters Date Type Department Care Team ([facility] Contact Info) Description 09/07/2024 10:00 AM CDT Office Visit [facility] [address] 200 [place] [address] Fransisco Eddy MD [address] [place] [address] 88 [place] [address] 09/18/2024 2:00 PM CDT Virtual Visit [facility] [address] [place] [address] [address] [place] [address] Shanna Vang PA-C [address] [place] [address] 03/29/2025 3:40 PM CDT Office Visit [address] [phone] Alfreda Ray PA-C [address] [place] [address] 664902 documented as of this encounter Visit Diagnoses Diagnosis Primary osteoarthritis involving multiple joints documented in this encounter Additional Health Concerns Infection Onset Date Last Indicated Resolved Time Rule Out COVID-19 05/08/2021 05/08/2021 05/09/2021 9:08 PM MERCHANDISE PLANNING MANAGER Assessment Noted Time PHQ-9 Depression Total Score: 0 08/31/19 21 11:22 AM MERCHANDISE PLANNING MANAGER documented as of this encounter Care Teams Chief Of Field Operations Relationship Specialty Start Date End Date Esperanza Gatica MD PCP - General Family Practice 10/13/11 12/29/21 Alfreda Ray PA-C [address] [place] [address] 166882 PCP - General Family Medicine 12/30/21 [place] [address] [place] [address] Assigned PCP 09/29/20 07/31/22 Jesú[place] [address] [place] [address] Assigned Musculoskeletal Provider 10/20/20 04/17/22 Alfreda Ray PA-C [address] [place] [address] Referring Physician Family Medicine 12/31/21 Katrin Orellana PA-C [address] [place] [address] 205035 Physician Financial Health Counselor Dermatology 12/31/21 Shanna Vang PA-C [address] [place] [address] 553384 Assigned Cancer Care Provider 01/10/22 Fransisco Eddy MD [address] [place] [address] 389865 Assigned Rheumatology Provider 05/09/22 [place] [address] [place] [address] Assigned Pain Medication Provider 06/29/22 09/04/22 [place] [address] [place] [address] Assigned PCP 08/15/22 08/28/22 Katrin Orellana PA-C [address] [place] [address] 711425 Assigned Surgical Provider 08/15/22 02/10/24 Cristina Hsieh [facility] [address] [facility] LISBETH HERNANDEZ [address] Pharmacist Pharmacist 09/07/22 Alfreda Ray PA-C [address] [place] [address] Assigned Pain Medication Provider 09/05/22 09/10/23 Alfreda Ray PA-C [address] [place] [address] Assigned PCP 08/29/22 Cristina Hsieh, [facility] [address] [address] Assigned MTM Pharmacist 09/26/22 Dakota Tatum MD [address] [place] [address]184 Cardiovascular Disease 03/25/23 Dakota Tatum MD [address] [place] [address] 633665 Assigned Heart and Vascular Provider 05/01/23 [place] [address] [facility], [address] [address] Assigned Musculoskeletal Provider 04/12/24 documented as of this encounter
--- OUTSIDE RECORDS SUMMARY | 2024-07-28 14:25 | XMS_ITS | Encounter Summary ---
Author Organization [place] Address [address] [place] [address] 8[address]12 Care Team Providers Care Door Builder Name Role Phone Esperanza Gatica MD Primary Care Provider + Esperanza Gatica MD Unavailable +[phone] Esperanza Gatica MD Unavailable +[phone] Esperanza Gatica MD Unavailable +572 Esperanza Gatica MD Unavailable +154 Esperanza Gatica MD Unavailable +772 Esperanza Gatica MD Unavailable +[phone] Jesús Orourke MD Unavailable Alfreda RayC Primary Care Provider + Alfreda Ray PA-C Unavailable + [phone] Katrin Orellana PA-C Unavailable +[phone] Shanna VangC Unavailable +[phone] Fransisco Eddy MD Unavailable +[phone] Esperanza Gatica MD Unavailable +[phone] Esperanza Gatica MD Unavailable +[phone] Katrin Orellana PA-C Unavailable +[phone] Cristina Hsieh [facility] Unavailable Cory Alfreda Liu PA-C Unavailable +[phone] Alfreda Ray Alexa KING Unavailable +[phone] Cristina Hsieh [facility] Unavailable +[phone] Dakota Tatum MD Unavailable Dakota Tatum MD Unavailable [phone] Srinivas Marie DO Unavailable [phone] Reason for Visit * Reason Onset Date Comments Refill Request 09/22/2012 Ultram 50mg Encounter Details Date Type Department Care Team (Late st Contact Info) Description 09/22/2012 MyC Refill [address], [facility] [address] [place] [address] [place] [address] [place] [address] Refill Request (Ultram 50mg) Social History Tobacco Use Types Packs/Day Years Used Date Smoking Tobacco: Former Cigarettes Q uit: 06/21/1973 Smokeless Tobacco: Former Alcohol Use Standard Drinks/Week Comments Yes 0 (1 standard drink = 0.6 oz pur e alcohol) rarely Comments No Sex and Gender Information Value Date Recorded Sex Assigned at Female 08/17/2018 7:56 AM SUBSTATION MAINTENANCE TECHNICIAN Legal Sex Female 4:24 AM SUBSTATION MAINTENANCE TECHNICIAN Gender Identity Female 08/17/2018 7:56 AM SUBSTATION MAINTENANCE TECHNICIAN Sexual Orientation Straight 08/17/2018 7: 56 AM SUBSTATION MAINTENANCE TECHNICIAN documented as of this encounter Miscellaneous [...] Gatica MD] Preferred pharmacy: [id number] - [address] Comment: documented in this encounter Plan of Treatment Upcoming Encounters Date Type Department Care Team (Late st Contact Info) Description 09/07/2024 10:00 AM CDT Office Visit [facility] [address] 200 [place] [phone] Fransisco Eddy MD [address] [place] [address] 88 [place] [address] 09/18/2024 2:00 PM CDT Virtual Visit [facility] [address] [place] [address] 105 [place] [address] Shanna Vang, PAoRbinson [address] [place] [address] 432844 03/29/2025 3:40 PM CDT Office Visit [address] [phone] Alfreda Ray PA-C [address] [place] [address] 740662 documented as of this encounter Visit Diagnoses Diagnosis Knee pain Pain in joint, lower leg documented in this encounter Additional Health Concerns Infection Onset Date Last Indicated Resolved Time Rule Out COVID-19 05/08/2021 05/08/2021 05/09/2021 9:08 PM SUBSTATION MAINTENANCE TECHNICIAN documented as of this encounter Care Teams Door Builder Relationship Specialty Start Date End Date Esperanza Gatica MD PCP - General Family Practice 10/13/11 12/29/21 [place] [address] [place] [address] PCP - Assigned PCP 12/05/17 08/23/18 Alfreda Ray PA-C [address] [place] [address] 14524 PCP - General Family Medicine 12/30/21 [place] [address] [place], LISBETH [address] Assigned PCP 12/05/17 09/30/19 [place] [address] [place], LISBETH [address] Assigned PCP 10/01/19 03/02/20 [place] [address] [place], LISBETH [address] Assigned PCP 03/03/20 05/25/20 [place] [address] [place] [address] Assigned PCP 05/26/20 09/28/20 [place] [address] LISB[place] GARCIA [address] Assigned PCP 09/29/20 07/31/22 [place] [address] [place] GALAN [address] Assigned Musculoskeletal Provider 10/20/20 04/17/22 Alfreda Ray PA-C [address] [place] [address] 643292 Referring Physician Family Medicine 12/31/21 Katrin Orellana PA-C [address] [place] [address] 864845 Physician Freight Elevator Operator Dermatology 12/31/21 Shanna Vang PA-C [address] [place] [address] 804264 Assigned Cancer Care Provider 01/10/22 Fransisco Eddy MD [address] [place] [address] 084255 Assigned Rheumatology Provider 05/09/22 [place] [address] [facility] [place], [place] [phone] Assigned Pain Medication Provider 06/29/22 09/04/22 [place] [address] [facility] [place] [address] Assigned PCP 08/15/22 08/28/22 Katrin Orellana PA-C [address] [place] [address] 849355 Assigned Surgical Provider 08/15/22 02/10/24 Cristina Hsieh [facility] [address] [facility] LISBETH HERNANDEZ [address] Pharmacist Pharmacist 09/07/22 Alfreda Ray PA-C [address] [place] [address] 90415 Assigned Pain Medication Provider 09/05/22 09/10/23 Alfreda Ray PA-C [address] [place] [address] 76614 Assigned PCP 08/29/22 Cristina Hsieh, [facility] [address] [place] [address] 24553 Assigned MTM Pharmacist 09/26/22 Dakota Tatum MD [address] [place] [address]17 Cardiovascular Disease 03/25/23 Dakota Tatum MD [address] [place] [address] Assigned Heart and Vascular Provider 05/01/23 [place] [address] [place] [place], [address] [address] Assigned Musculoskeletal Provider 04/12/24 documented as of this encounter
--- OUTSIDE RECORDS SUMMARY | 2024-07-28 14:25 | XMS_ITS | Encounter Summary ---
Author Organization [place] Address [address] [place] [address]686 Care Team Providers Care Employment Attorney Name Role Phone Esperanza Gatica MD Primary Care Provider + Esperanza Gatica MD Unavailable + Esperanza Gatica MD Unavailable + Jesús Orourke MD Unavailable Alfreda Ray-C Primary Care Provider + Alfreda Ray-C Unavailable +[phone] Katrin Orellana PA-C Unavailable +[phone] Shanna Vang PA-C Unavailable +[phone] Fransisco Eddy MD Unavailable +[phone] Esperanza Gatica MD Unavailable + Esperanza Gatica MD Unavailable + Katrin OrellanaC Unavailable +[phone] Cristina Hsieh [facility] Unavailable +[phone] Alfreda Ray PA-C Unavailable +[phone] Alfreda Ray PA-C Unavailable +[phone] Cristina Hsieh [facility] Unavailable +[phone] Dakota Tatum MD Unavailable +[phone] Dakota Tatum MD Unavailable + Cynthia, Srinivas Unavailable [phone] Encounter Details Date Type Department Care Team (Late Contact Info) Description 08/18/2020 MyC Medical Advice [facility] [address] [place] [address] [place] [address] [place] [address] Primary osteoarthritis involving multiple joints [...] Assigned at Female 08/17/2018 7:56 AM HOUSEKEEPING ASSOCIATE Legal Sex Female 4:24 AM HOUSEKEEPING ASSOCIATE Gender Identity Female 08/17/2018 7:56 AM HOUSEKEEPING ASSOCIATE Sexual Orientation Straight 08/17/2018 7: 56 AM HOUSEKEEPING ASSOCIATE documented as of this encounter Plan of Treatment Upcoming Encounters Date Type Department Care Team (Late Contact Info) Description 09/07/2024 10:00 AM CDT Office Visit [facility] [address] 200 [place] [phone] Fransisco Eddy MD [address] [place] [address] 88 [place], [place] 934245 09/18/2024 2:00 PM CDT Virtual Visit [facility] [place] [address] 105 [place] [phone] Shanna Vang, PA-C [address] [place] [address] 03/29/2025 3:40 PM CDT Office Visit [address] [phone] Alfreda Ray PA-C [address] [place] [address] 892322 documented as of this encounter Visit Diagnoses Diagnosis Primary osteoarthritis involving multiple joints documented in this encounter Additional Health Concerns Infection Onset Date Last Indicated Resolved Time Rule Out COVID-19 05/08/2021 05/08/2021 05/09/2021 9:08 PM HOUSEKEEPING ASSOCIATE Assessment Noted Time PHQ-9 Depression Total Score: 1 08/20/19 1:44 PM HOUSEKEEPING ASSOCIATE documented as of this encounter Care Teams Employment Attorney Relationship Specialty Start Date End Date Esperanza Gatica MD PCP - General Family Practice 10/13/11 12/29/21 Alfreda Ray PA-C [address] [place] [address] 407182 PCP - General Family Medicine 12/30/21 [place] [address] L[place] GARCIA [address] Assigned PCP 05/26/20 09/28/20 [place] [address] LISB[place] GARCIA [address] Assigned PCP 09/29/20 07/31/22 Jesú[place] [address] [place] GALAN [address]89 Assigned Musculoskeletal Provider 5/2/21 10/28/22 Alfreda Ray PA-C [address] [place] [address] 295362 Referring Physician Family Medicine 12/31/21 Katrin Orellana PA-C [address] [place] [address] 871025 Physician Manufacturing Production Technician Dermatology 12/31/21 Shanna Vang PA-C [address] [place] [address] [phone] Assigned Cancer Care Provider 01/10/22 Fransisco Eddy MD [address] [place] [address] 401455 Assigned Rheumatology Provider 05/09/22 [place] [address] [place] [phone] Assigned Pain Medication Provider 06/29/22 09/04/22 [place] [address] [place] [address] Assigned PCP 08/15/22 08/28/22 Katrin Orellana PA-C [address] [place] [address] 725185 Assigned Surgical Provider 08/15/22 02/10/24 Cristina Hsieh [facility] 3[address] [facility] LISBETH HERNANDEZ [phone] Pharmacist Pharmacist 09/07/22 Alfreda Ray PA-C [address] [place] [address] 130492 Assigned Pain Medication Provider 09/05/22 09/10/23 Alfreda Ray PA-C [address] [place] [address] 216152 Assigned PCP 08/29/22 Cristina Hsieh, [facility] [address] [place] [address] 96475 Assigned MTM Pharmacist 09/26/22 Dakota Tatum MD [address] [place] [address] 800895 Cardiovascular Disease 03/25/23 Dakota Tatum MD [address] [place] [address] 172495 Assigned Heart and Vascular Provider 05/01/23 [place] [address] [address], [address] [address] Assigned Musculoskeletal Provider 04/12/24 documented as of this encounter
--- OUTSIDE RECORDS SUMMARY | 2024-07-28 14:25 | XMS_ITS | Encounter Summary ---
Author Organization [place] Address [address] [place] [address] 04661 Care Team Providers Care Logistics Engineer Name Role Phone Esperanza Gatica MD Primary Care Provider + Esperanza Gatica MD Unavailable +[phone] Esperanza Gatica MD Unavailable +[phone] Esperanza Gatica MD Unavailable +206 Esperanza Gatica MD Unavailable +290 Esperanza Gatica MD Unavailable +509 Esperanza Gatica MD Unavailable +[phone] Jesús Orourke MD Unavailable Alfreda RayC Primary Care Provider + Alfreda Ray PA-C Unavailable + [phone] Katrin Orellana PA-C Unavailable [phone] Shanna VangC Unavailable +[phone] Fransisco Eddy MD Unavailable [phone] Esperanza Gatica MD Unavailable +[phone] Esperanza Gatica MD Unavailable +[phone] Katrin Orellana PA-C Unavailable [phone] Cristina Hsieh [facility] Unavailable CoryAlfreda PA-C Unavailable Ho Raymustapha Liu PA-C Unavailable +[phone] Cristina Hsieh [facility] Unavailable Dakota Tatum MD Unavailable Dakota Tatum MD Unavailable [phone] Srinivas Marie DO Unavailable [phone] Reason for Visit * Reason Onset Date Comments Refill Request 11/25/2012 tramadol 50 MG Encounter Details Date Type Department Care Team (Late st Contact Info) Description 11/25/2012 MyC Refill [address] [address] [place] [address] [place] [address] Refill Request (tramadol 50 MG) Social History Tobacco Use Types Packs/Day Years Used Date Smoking Tobacco: Former Cigarettes Q uit: 06/21/1973 Smokeless Tobacco: Former Alcohol Use Standard Drinks/Week Comments Yes 0 (1 standard drink = 0.6 oz pur e alcohol) rarely Comments No Sex and Gender Information Value Date Recorded Sex Assigned at Female 08/17/2018 7:56 AM FIRE CHIEF Legal Sex Female 4:24 AM FIRE CHIEF Gender Identity Female 08/17/2018 7:56 AM FIRE CHIEF Sexual Orientation Straight 08/17/2018 7: 56 AM FIRE CHIEF documented as of this encounter Miscellaneous Notes * Telephone Encounter - Diane Macedo - 11/25/2012 9:48 AM CDT Does not meet standard requirement for RN refill protocol. Medication: tramadol 50 MG Last OV: 11/08/12 Reason for visit: Osteoarthritis Last refill: 10/28/12 #30 Please refill if appropriate. Thank you! Diane Macedo RN [facility] Work Force * Telephone Encounter - Diane Macedo - 11/25/2012 9:47 AM CDTMessage from [facility] Original authorizing provider: MD Alexandria Brannon would like a refill of the following medications: traMADol (ULTRAM) 50 MG tablet [Esperanza Gatica MD] Preferred pharmacy: [id number] Comment: Sent from my [employer] documented in this encounter Plan of Treatment Upcoming Encounters Date Type Department Care Team (Late st Contact Info) Description 09/07/2024 10:00 AM CDT Office Visit [facility] [address] [phone] Fransisco Eddy MD [address] [place] [address] 399475 09/18/2024 2:00 PM CDT Virtual Visit [facility] [address] [place] [address] 105 [place] [phone] Shanna Vang PA-C [address] [place] [address] 03/29/2025 3:40 PM CDT Office Visit [address] [phone] Alfreda Ray PA-C [address] [place] [address] 139342 documented as of this encounter Visit Diagnoses Diagnosis Knee pain Pain in joint, lower leg documented in this encounter Additional Health Concerns Infection Onset Date Last Indicated Resolved Time Rule Out COVID-19 05/08/2021 05/08/2021 05/09/2021 9:08 PM FIRE CHIEF documented as of this encounter Care Teams Logistics Engineer Relationship Specialty Start Date End Date Esperanza Gatica MD PCP - General Family Practice 10/13/11 12/29/21 [place] [address] L[place] GARCIA [address] PCP - Assigned PCP 12/05/17 08/23/18 Alfreda Ray PA-C [address] [place] [address] PCP - General Family Medicine 12/30/21 [place] [address] [place] GARCIA [address] Assigned PCP 12/05/17 09/30/19 [place] [address] [place] GARICA 31275 Assigned PCP 10/01/19 03/02/20 [place] [address] [place] GARCIA [address]1422 Assigned PCP 03/03/20 05/25/20 [place] [address] LISB[place] GARCIA 46883 Assigned PCP 05/26/20 09/28/20 [place] [address] L[place] GARCIA [address]3753 Assigned PCP 09/29/20 07/31/22 [place] [address] [place] [address] [address] Assigned Musculoskeletal Provider 10/20/20 04/17/22 Alfreda Ray PA-C [address] [place] [address] [phone] Referring Physician Family Medicine 12/31/21 Katrin Orellana PA-C [address] [place] [address] 259995 Physician Plant Sciences Professor Dermatology 12/31/21 Shanna Vang PA-C [address] [place] [address] 702914 Assigned Cancer Care Provider 01/10/22 Fransisco Eddy MD [address] [place] [address] 295405 Assigned Rheumatology Provider 05/09/22 [place] [address] [place] GARCIA [address] Assigned Pain Medication Provider 06/29/22 09/04/22 [place] [address] L[place] GARCIA [address]36 Assigned PCP 08/15/22 08/28/22 Katrin Orellana PA-C [address] [place] [address] 779775 Assigned Surgical Provider 08/15/22 02/10/24 Cristina Hsieh [facility] [address] [facility] LISBETH HERNANDEZ [address] Pharmacist Pharmacist 09/07/22 Alfreda Ray PA-C [address] [place] [address] 426322 Assigned Pain Medication Provider 09/05/22 09/10/23 Alfreda Ray PA-C [address] [place] [address] 80218 Assigned PCP 08/29/22 Cristina Hsieh [facility] [address] [place] [address]54 Assigned MTM Pharmacist 09/26/22 Dakota Tatum MD [address] [place] [address]35 Cardiovascular Disease 03/25/23 Dakota Tatum MD [address] [place] [address] 786575 Assigned Heart and Vascular Provider 05/01/23 [place] [address] [address] Assigned Musculoskeletal Provider 04/12/24 documented as of this encounter
--- OUTSIDE RECORDS SUMMARY | 2024-07-28 14:25 | XMS_ITS | Encounter Summary ---
Author Organization [place] Address [address] [place] [address] 10037 Care Team Providers Care Prescription Clerk Name Role Phone Esperanza Gatica MD Primary Care Provider + Esperanza Gatica MD Unavailable +[phone] Esperanza Gatica MD Unavailable +722 Esperanza Gatica MD Unavailable +343 Esperanza Gatica MD Unavailable +681 Esperanza Gatica MD Unavailable +529 Esperanza Gatica MD Unavailable +[phone] Jesús Orourke MD Unavailable Alfreda RayC Primary Care Provider + Alfreda Ray PA-C Unavailable + [phone] Katrin Orellana PA-C Unavailable +[phone] Shanna VangC Unavailable +[phone] Fransisco Eddy MD Unavailable +[phone] Esperanza Gatica MD Unavailable +[phone] Esperanza Gatica MD Unavailable +[phone] Katrin Orellana PA-C Unavailable Cristina Hsieh [facility] Unavailable Cory Alfreda Liu PA-C Unavailable +[phone] Ho Raymustapha Liu PA-C Unavailable +[phone] Cristina Hsieh [facility] Unavailable [phone] Dakota Tatum MD Unavailable [phone] Dakota Tatum MD Unavailable [phone] Srinivas Marie DO Unavailable [phone] Reason for Visit * Reason Onset Date Comments Refill Request 06/03/2014 Tramadol 50mg Encounter Details Date Type Department Care Team (Late st Contact Info) Description 06/03/2014 MyC Refill [address], [facility] 100 [place] [address] [place] [address] [place] [address] Refill Request (Tramadol 50mg) Social History Tobacco Use Types Packs/Day Years Used Date Smoking Tobacco: Former Cigarettes Q uit: 06/21/1973 Smokeless Tobacco: Former Alcohol Use Standard Drinks/Week Comments Yes 0 (1 standard drink = 0.6 oz pur e alcohol) rarely Comments No Sex and Gender Information Value Date Recorded Sex Assigned at Female 08/17/2018 7:56 AM SUPERVISOR GEAR REPAIR Legal Sex Female 4:24 AM SUPERVISOR GEAR REPAIR Gender Identity Female 08/17/2018 7:56 AM SUPERVISOR GEAR REPAIR Sexual Orientation Straight 08/17/2018 7: 56 AM SUPERVISOR GEAR REPAIR documented as of this encounter Miscellaneous Notes * Telephone Encounter - Leigha Rinaldi RN - 06/04/2014 1:43 PM CST Pending Prescriptions: Disp Refills traMADol (ULTRAM) 50 MG tablet 30 tab*0 Sig: Take 1 tablet (50 mg) by mouth every 6 hours as needed for pain Last OV: 03/29/2014 Reason: IBS Last filled: 05/07/2014 #30 Leigha Rinaldi RN RVISOR GEAR REPAIR * Telephone Encounter - Leigha Rinaldi RN - 06/04/2014 1:43 PM CSTMessage from MyChart: Original authorizing provider: MD Alexandria Brannon would like a refill of the following medications: traMADol (ULTRAM) 50 MG tablet [Esperanza Gatica MD] Preferred pharmacy: [id number] Comment: RVISOR GEAR REPAIR documented in this encounter Plan of Treatment Upcoming Encounters Date Type Department Care Team (Late st Contact Info) Description 09/07/2024 10:00 AM CDT Office Visit [facility] [address] 200 [place] [phone] Fransisco Eddy MD [address] [place] [address] 88 [place] [address] 09/18/2024 2:00 PM CDT Virtual Visit [facility] [address] [place] [address] 105 [place] [address] Shanna Vang, PARobinson [address] [place] [address] 03/29/2025 3:40 PM CDT Office Visit [address] [place] [phone] Alfreda Ray PA-C [address] [place] [address] 773602 documented as of this encounter Visit Diagnoses Diagnosis HTN (hypertension), benign Essential hypertension, benign documented in this encounter Additional Health Concerns Infection Onset Date Last Indicated Resolved Time Rule Out COVID-19 05/08/2021 05/08/2021 05/09/2021 9:08 PM SUPERVISOR GEAR REPAIR documented as of this encounter Care Teams Prescription Clerk Relationship Specialty Start Date End Date Esperanza Gatica MD PCP - General Family Practice 10/13/11 12/29/21 [place] [address] [place] [address] PCP - Assigned PCP 12/05/17 08/23/18 Alfreda Ray PA-C [address] [place] [address]846 PCP - General Family Medicine 12/30/21 [place] [address] [place] [address] Assigned PCP 12/05/17 09/30/19 [place] [address] [place] [address] Assigned PCP 10/01/19 03/02/20 [place] [address] [place] [address] Assigned PCP 03/03/20 05/25/20 [place] [address] [place] [address] Assigned PCP 05/26/20 09/28/20 [place] [address] [place] [address] Assigned PCP 09/29/20 07/31/22 [place] [address] [place] [address] [address] Assigned Musculoskeletal Provider 10/20/20 04/17/22 Alfreda Ray PA-C [address] [place] [address] [phone] Referring Physician Family Medicine 12/31/21 Katrin Orellana PA-C [address] [place] [address] 179835 Physician Help Desk Operator Dermatology 12/31/21 Shanna Vang PA-C [address] [place] [address] 807394 Assigned Cancer Care Provider 01/10/22 Fransisco Eddy MD [address] [place] [address] [phone] Assigned Rheumatology Provider 05/09/22 [place] [address] [place] GARCIA [address] Assigned Pain Medication Provider 06/29/22 09/04/22 [place] [address] [place] GARCIA [address]9475 Assigned PCP 08/15/22 08/28/22 Katrin Orellana PA-C [address] [place] [address] [phone] Assigned Surgical Provider 08/15/22 02/10/24 Cristina Hsieh [facility] 3[address] [facility] LISBETH HERNANDEZ [address] Pharmacist Pharmacist 09/07/22 Alfreda Ray PA-C [address] [place] [address] 665812 Assigned Pain Medication Provider 09/05/22 09/10/23 Alfreda Ray PA-C [address] [place] [address] 398222 Assigned PCP 08/29/22 Cristina Hsieh [facility] [address] [place] [address] 27677 Assigned MTM Pharmacist 09/26/22 Dakota Tatum MD [address] [place] [address] 201445 Cardiovascular Disease 03/25/23 Dakota Tatum MD [address] [place] [address]68 Assigned Heart and Vascular Provider 05/01/23 [place] [address] [place] , [facility] [address] [place] [address] Assigned Musculoskeletal Provider 04/12/24 documented as of this encounter
--- OUTSIDE RECORDS SUMMARY | 2024-07-28 14:25 | XMS_ITS | Encounter Summary ---
Author Organization [facility] Address [address] [place] [address] Care Team Providers Care Gas Cutting Machine Operator Name Role Phone Esperanza Gatica MD Primary Care Provider + Esperanza Gatica MD Unavailable +[phone] Esperanza Gatica MD Unavailable +[phone] Esperanza Gatica MD Unavailable +[phone] Esperanza Gatica MD Unavailable +[phone] Esperanza Gatica MD Unavailable +[phone] Esperanza Gatica MD Unavailable +[phone] Jesús Orourke MD Unavailable Alfreda RayC Primary Care Provider + Alfreda Ray PA-C Unavailable + [phone] Katirn Orellana PA-C Unavailable +[phone] Shanna VangC Unavailable +[phone] Fransisco Eddy MD Unavailable +[phone] Esperanza Gatica MD Unavailable +[phone] Esperanza Gatica MD Unavailable +[phone] Katrin Orellana PA-C Unavailable Cristina Hsieh [facility] Unavailable RayAlfreda PA-C Unavailable +[phone] Cory Alfreda Liu PA-C Unavailable +[phone] Cristina Hsieh [facility] Unavailable +[phone] Dakota Tatum MD Unavailable [phone] Dakota Tatum MD Unavailable [phone] Srinivas Marie DO Unavailable +[phone] Reason for Visit * Reason Onset Date Comments Refill Request 06/17/2014 Celebrex, Lisino pril/HCTZ Encounter Details Date Type Department Care Team (Late st Contact Info) Description 06/17/2014 MyC Medical Advice [address], [address] [place] [address] [place] [address] [place] [address] Refill Request (Celebrex, Lisinopril/HCTZ) Social History Tobacco Use Types Packs/Day Years Used Date Smoking Tobacco: Former Cigarettes Q uit: 06/21/1973 Smokeless Tobacco: Former Alcohol Use Standard Drinks/Week Comments Yes 0 (1 standard drink = 0.6 oz pur e alcohol) rarely Comments No Sex and Gender Information Value Date Recorded Sex Assigned at Female 08/17/2018 7:56 AM PRODUCT SUPPORT MANAGER Legal Sex Female 4:24 AM PRODUCT SUPPORT MANAGER Gender Identity Female 08/17/2018 7:56 AM PRODUCT SUPPORT MANAGER Sexual Orientation Straight 08/17/2018 7: 56 AM PRODUCT SUPPORT MANAGER documented as of this encounter Miscellaneous [...] Will route to provider. Leigha Rinaldi RN UCT SUPPORT MANAGER documented in this encounter Plan of Treatment Upcoming Encounters Date Type Department Care Team (Late st Contact Info) Description 09/07/2024 10:00 AM CDT Office Visit [facility] [address] 200 [place] [phone] Fransisco Eddy MD [address] [place] [address] 88 [place], [place] [address]805 09/18/2024 2:00 PM CDT Virtual Visit [facility] [place] [address] 105 [place] [address] Shanna Vang PA-C [address] [place] [address] 03/29/2025 3:40 PM CDT Office Visit [address] [place] [phone] Alfreda Ray PA-C [address] [place] [address] [phone] documented as of this encounter Visit Diagnoses Diagnosis HTN (hypertension), benign- Primary Essential hypertension, benign Osteoarthritis Osteoarthrosis, unspecified whether generalized or localized, unspecified site documented in this encounter Additional Health Concerns Infection Onset Date Last Indicated Resolved Time Rule Out COVID-19 05/08/2021 05/08/2021 05/09/2021 9:08 PM PRODUCT SUPPORT MANAGER documented as of this encounter Care Teams Gas Cutting Machine Operator Relationship Specialty Start Date End Date Esperanza Gatica MD PCP - General Family Practice 10/13/11 12/29/21 [place] [address] LISBETH GARCIA [address]15[address] PCP - Assigned PCP 12/05/17 08/23/18 Alfreda Ray PA-C [address] [place] [address]1173 PCP - General Family Medicine 12/30/21 [place] [address] LISBETH GARCIA 42487 Assigned PCP 12/05/17 09/30/19 [place] [address] LISBETH GARCIA 99267 Assigned PCP 10/01/19 03/02/20 [place] [address] LISBETH GARCIA 48023 Assigned PCP 03/03/20 05/25/20 [place] [address] LISBETH GARCIA 20927 Assigned PCP 05/26/20 09/28/20 [place] [address] LISBETH GARCIA 85849 Assigned PCP 09/29/20 07/31/22 [place] [address] [place] [address] 030957 Assigned Musculoskeletal Provider 10/20/20 04/17/22 Alfreda Ray PA-C [address] [place] [address] [phone] Referring Physician Family Medicine 12/31/21 Katrin Orellana PA-C [address] [place] [address] [phone] Physician Telecommunications Officer Dermatology 12/31/21 Shanna Vang PA-C [address] [place] [address] 749264 Assigned Cancer Care Provider 01/10/22 Fransisco Eddy MD [address] [place] [address] 562695 Assigned Rheumatology Provider 05/09/22 [place] [address] LISBETH GARCIA 24239 Assigned Pain Medication Provider 06/29/22 09/04/22 [place] [address] LISBETH GARCIA 76218 Assigned PCP 08/15/22 08/28/22 Katrin Orellana PA-C [address] [place] [address] 137585 Assigned Surgical Provider 08/15/22 02/10/24 Cristina Hsieh, [facility] [address] [facility] L[place]BETH [place]DEZ [address] Pharmacist Pharmacist 09/07/22 Alfreda Ray PA-C [address] [place] [address] 25086 Assigned Pain Medication Provider 09/05/22 09/10/23 Alfreda Ray PA-C [address] [place] [address] 83672 Assigned PCP 08/29/22 Cristina Hsieh [facility] [address] [place] [address] 31185 Assigned MTM Pharmacist 09/26/22 Dakota Tatum MD [address] [place] [address] 43553 Cardiovascular Disease 03/25/23 Dakota Tatum MD [address] [place] [address] 96897 Assigned Heart and Vascular Provider 05/01/23 [place] [address] [place] , [address] [address] Assigned Musculoskeletal Provider 04/12/24 documented as of this encounter
--- OUTSIDE RECORDS SUMMARY | 2024-07-28 14:25 | XMS_ITS | Encounter Summary ---
Author Organization [facility] Address [address] [place] [address] Care Team Providers Care Underwriting Sales Representative Name Role Phone Esperanza Gatica MD Primary Care Provider + Esperanza Gatica MD Unavailable +[phone] Esperanza Gatica MD Unavailable +[phone] Esperanza Gatica MD Unavailable +[phone] Esperanza Gatica MD Unavailable +[phone] Esperanza Gatica MD Unavailable +[phone] Esperanza Gatica MD Unavailable +[phone] Jesús Orourke MD Unavailable Alfreda RayC Primary Care Provider + Alfreda Ray PA-C Unavailable + [phone] Katrin Orellana PA-C Unavailable [phone] Shanna VangC Unavailable +[phone] Fransisco dEdy MD Unavailable [phone] Esperanza Gatica MD Unavailable +[phone] Esperanza Gatica MD Unavailable +[phone] Katrin Orellana PA-C Unavailable [phone] Cristina Hsieh [facility] Unavailable Cory Alfreda Liu PA-C Unavailable +[phone] Alfreda Ray Alexa KING Unavailable +[phone] Cristina Hsieh [facility] Unavailable Dakota Tatum MD Unavailable Dakota Tatum MD Unavailable Srinivas Marie DO Unavailable [phone] Reason for Visit * Reason Onset Date Comments Refill Request 10/23/2012 Zocor 20mg Encounter Details Date Type Department Care Team (Late st Contact Info) Description 10/23/2012 MyC Refill M [address], [facility] 100 [place] [address] [place] [address] [place] [address] Refill Request (Zocor 20mg) Social History Tobacco Use Types Packs/Day Years Used Date Smoking Tobacco: Former Cigarettes Q uit: 06/21/1973 Smokeless Tobacco: Former Alcohol Use Standard Drinks/Week Comments Yes 0 (1 standard drink = 0.6 oz pur e alcohol) rarely Comments No Sex and Gender Information Value Date Recorded Sex Assigned at Female 08/17/2018 7:56 AM INSURANCE LOSS ASSESSOR Legal Sex Female 4:24 AM INSURANCE LOSS ASSESSOR Gender Identity Female 08/17/2018 7:56 AM INSURANCE LOSS ASSESSOR Sexual Orientation Straight 08/17/2018 7: 56 AM INSURANCE LOSS ASSESSOR documented as of this encounter Miscellaneous Notes [...] Rinaldi - 10/24/2012 7:44 AM CDTMessage from [employer]: Original authorizing provider: MD Alexandria Brannon would like a refill of the following medications: simvastatin (ZOCOR) 20 MG tablet [Esperanza Gatica MD] Preferred pharmacy: [id number] Comment: Sent from [employer] documented in this encounter Plan of Treatment Upcoming Encounters Date Type Department Care Team (Late st Contact Info) Description 09/07/2024 10:00 AM CDT Office Visit [facility] [address] [phone] Fransisco Eddy MD [address] [place] [address] 09/18/2024 2:00 PM CDT Virtual Visit [facility] [place] [address] 105 [place] [phone] Shanna Vang, PAFilemonC [address] [place] [address] 03/29/2025 3:40 PM CDT Office Visit [address] [place] [address] Alfreda Ray PA-C [address] [place] [address] 675062 documented as of this encounter Visit Diagnoses Diagnosis Hyperlipidemia LDL goal <160- Primary Other and unspecified hyperlipidemia documented in this encounter Additional Health Concerns Infection Onset Date Last Indicated Resolved Time Rule Out COVID-19 05/08/2021 05/08/2021 05/09/2021 9:08 PM INSURANCE LOSS ASSESSOR documented as of this encounter Care Teams Underwriting Sales Representative Relationship Specialty Start Date End Date Esperanza Gatica MD PCP - General Family Practice 10/13/11 12/29/21 [place] [address] LISBETH GARCIA [address] PCP - Assigned PCP 12/05/17 08/23/18 Alfreda Ray PA-C [address] [place] [address] 280772 PCP - General Family Medicine 12/30/21 [place] [address] LISBETH GARCIA 94295 Assigned PCP 12/05/17 09/30/19 [place] [address] LISBETH GARCIA 88950 Assigned PCP 10/01/19 03/02/20 [place] [address] LISBETH GARCIA 02352 Assigned PCP 03/03/20 05/25/20 [place] [address] [place] [address] Assigned PCP 05/26/20 09/28/20 [place] [address] [place] [address] Assigned PCP 09/29/20 07/31/22 [place] [address] [place] [address] 819067 Assigned Musculoskeletal Provider 10/20/20 04/17/22 Alfreda Ray PA-C [address] [place] [address] 42265 Referring Physician Family Medicine 12/31/21 Katrin Orellana PA-C [address] [place] [address]646 Physician Girl Friday Dermatology 12/31/21 Shanna Vang PA-C [facility] [address] [address] Assigned Cancer Care Provider 01/10/22 Fransisco Eddy MD [address] [place] [address] 474795 Assigned Rheumatology Provider 05/09/22 [place] [address] [place] [address] Assigned Pain Medication Provider 06/29/22 09/04/22 [place] [address] [place] [address] Assigned PCP 08/15/22 08/28/22 Katrin Orellana PA-C [address] [place] [address] 58809 Assigned Surgical Provider 08/15/22 02/10/24 Cristina Hsieh [facility] [address] [place] [address] [place] [address] Pharmacist Pharmacist 09/07/22 Alfreda Ray PA-C [address] [place] [address] 65232 Assigned Pain Medication Provider 09/05/22 09/10/23 Alfreda Ray PA-C [address] [place] [address] 509252 Assigned PCP 08/29/22 Cristina Hsieh [facility] [address] [place] [address]244 Assigned MTM Pharmacist 09/26/22 Dakota Tatum MD [address] [place] [address] 929855 Cardiovascular Disease 03/25/23 Dakota Tatum MD [address] [place] [address] 247005 Assigned Heart and Vascular Provider 05/01/23 [place] [address] [place], [address] [phone] Assigned Musculoskeletal Provider 04/12/24 documented as of this encounter
--- OUTSIDE RECORDS SUMMARY | 2024-07-28 14:25 | XMS_ITS | Encounter Summary ---
Author Organization [facility] Address [address] [place] [address] Care Team Providers Care Auto Specialty Services Manager Name Role Phone Esperanza Gatica MD Primary Care Provider + Esperanza Gatica MD Unavailable +[phone] Esperanza Gatica MD Unavailable +[phone] Esperanza Gatica MD Unavailable +[phone] Esperanza Gatica MD Unavailable +[phone] Esperanza Gatica MD Unavailable +[phone] Esperanza Gatica MD Unavailable +[phone] Jesús Orourke MD Unavailable Alfreda RayC Primary Care Provider + Alfreda Ray PA-C Unavailable + [phone] Katrin Orellana PA-C Unavailable [phone] Shanna VangC Unavailable +[phone] Fransisco Eddy MD Unavailable [phone] Esperanza Gatica MD Unavailable +[phone] Esperanza Gatica MD Unavailable +[phone] Katrin Orellana PA-C Unavailable Cristina Hsieh [facility] Unavailable Alfreda Ray PA-C Unavailable [phone] Cory Alfreda Liu PA-C Unavailable [phone] Cristina Hsieh [facility] Unavailable Dakota Tatum MD Unavailable Dakota Tatum MD Unavailable Srinivas Marie DO Unavailable [phone] Encounter Details Date Type Department Care Team (Late st Contact Info) Description 06/29/2014 MyC Medical Advice [address], [facility] 100 [place] [address] Fartun Silveira Social History Tobacco Use Types Packs/Day Years Used Date Smoking Tobacco: Former Cigarettes Q uit: 06/21/1973 Smokeless Tobacco: Former Alcohol Use Standard Drinks/Week Comments Yes 0 (1 standard drink = 0.6 oz pur e alcohol) rarely Comments No Sex and Gender Information Value Date Recorded Sex Assigned at Female 08/17/2018 7:56 AM FASHION JOURNALIST Legal Sex Female 4:24 AM FASHION JOURNALIST Gender Identity Female 08/17/2018 7:56 AM FASHION JOURNALIST Sexual Orientation Straight 08/17/2018 7: 56 AM FASHION JOURNALIST documented as of this encounter Plan of Treatment Upcoming Encounters Date Type Department Care Team (Late st Contact Info) Description 09/07/2024 10:00 AM CDT Office Visit [facility] [address] [address] Fransisco dEdy MD [address] [place] [address] 09/18/2024 2:00 PM CDT Virtual Visit [facility] Center for Bleeding and Clotting Disorders [facility] [place] [address] Shanna Vang PA-C [address] [place] [address] 03/29/2025 3:40 PM CDT Office Visit [address] [address] Alfreda Ray PA-C [address] [place] [address] documented as of this encounter Visit Diagnoses Not on filedocumented in this encounter Additional Health Concerns Infection Onset Date Last Indicated Resolved Time Rule Out COVID-19 05/08/2021 05/08/2021 05/09/2021 9:08 PM FASHION JOURNALIST documented as of this encounter Care Teams Auto Specialty Services Manager Relationship Specialty Start Date End Date Esperanza Gatica MD PCP - General Family Practice 10/13/11 12/29/21 [place] [address] LISBETH GARCIA [address] PCP - Assigned PCP 12/05/17 08/23/18 Alfreda Ray PA-C [address] [place] [address] 28910 PCP - General Family Medicine 12/30/21 [place] [address] LISBETH GARCIA 88790 Assigned PCP 12/05/17 09/30/19 [place] [address] LISBETH GARCIA 56893 Assigned PCP 10/01/19 03/02/20 [place] [address] [place] [address] Assigned PCP 03/03/20 05/25/20 [place] [address] [place] [address] Assigned PCP 05/26/20 09/28/20 [place] [address] [place] [place] [address] Assigned PCP 09/29/20 07/31/22 Jesú[place] [address] [place] [address] Assigned Musculoskeletal Provider 10/20/20 04/17/22 Alfreda Ray PA-C [address] [place] [address] 078632 Referring Physician Family Medicine 12/31/21 Katrin Orellana PA-C [address] [place] [address] 624795 Physician Supervising Bailiff Dermatology 12/31/21 Shanna Vang PA-C [address] [place] [address] 313384 Assigned Cancer Care Provider 01/10/22 Fransisco Eddy MD [address] [place] [address] 119535 Assigned Rheumatology Provider 05/09/22 [place] [address] [place] [address] Assigned Pain Medication Provider 06/29/22 09/04/22 [place] [address] [place] [address] Assigned PCP 08/15/22 08/28/22 Katrin Orellana PA-C [address] [place] [address] 066935 Assigned Surgical Provider 08/15/22 02/10/24 Cristina Hsieh [facility] [address] [facility] [place] [address] Pharmacist Pharmacist 09/07/22 Alfreda Ray PA-C [address] [place] [address] 502062 Assigned Pain Medication Provider 09/05/22 09/10/23 Alfreda Ray PA-C [address] [place] [address]8315 Assigned PCP 08/29/22 Cristina Hsieh [facility] [address] [phone] Assigned MTM Pharmacist 09/26/22 Dakota Tatum MD [address] [place], [place] 684465 Cardiovascular Disease 03/25/23 Dakota Tatum MD [address] [place] [address] Assigned Heart and Vascular Provider 05/01/23 [place] [address] [address] [place], [address] [address] Assigned Musculoskeletal Provider 04/12/24 documented as of this encounter
--- OUTSIDE RECORDS SUMMARY | 2024-07-28 14:25 | XMS_ITS | Encounter Summary ---
Author Organization [facility] Address [address] [place] [address]34 Care Team Providers Care Textile Bag Sewer Name Role Phone Esperanza Gatica MD Primary Care Provider + Esperanza Gatica MD Unavailable +[phone] Esperanza Gatica MD Unavailable +[phone] Esperanza Gatica MD Unavailable +[phone] Esperanza Gatica MD Unavailable +[phone] Esperanza Gatica MD Unavailable +[phone] Esperanza Gatica MD Unavailable +[phone] Jesús Orourke MD Unavailable Alfrdea RayC Primary Care Provider + Alfreda Ray PA-C Unavailable + [phone] Katrin Orellana PA-C Unavailable +[phone] Shanna VangC Unavailable +[phone] Fransisco Eddy MD Unavailable [phone] Esperanza Gatica MD Unavailable +[phone] Esperanza Gatica MD Unavailable +[phone] Katrin Orellana PA-C Unavailable Cristina Hsieh [facility] Unavailable Cory Alfreda Liu PA-C Unavailable +[phone] Alfreda Ray Alexa KING Unavailable +[phone] Cristina Hsieh [facility] Unavailable [phone] Dakota Tatum MD Unavailable Dakota Tatum MD Unavailable [phone] Srinivas Marie DO Unavailable [phone] Reason for Visit * Reason Onset Date Comments Refill Request 11/06/2012 Ambien 10mg Encounter Details Date Type Department Care Team (Late st Contact Info) Description 11/06/2012 MyC Refill M [address], [facility] 100 [place] [address] [place] [address] [place] [address] Refill Request (Ambien 10mg) Social History Tobacco Use Types Packs/Day Years Used Date Smoking Tobacco: Former Cigarettes Q uit: 06/21/1973 Smokeless Tobacco: Former Alcohol Use Standard Drinks/Week Comments Yes 0 (1 standard drink = 0.6 oz pur e alcohol) rarely Comments No Sex and Gender Information Value Date Recorded Sex Assigned at Female 08/17/2018 7:56 AM GATE MORTISER OPERATOR Legal Sex Female 4:24 AM GATE MORTISER OPERATOR Gender Identity Female 08/17/2018 7:56 AM GATE MORTISER OPERATOR Sexual Orientation Straight 08/17/2018 7: 56 AM GATE MORTISER OPERATOR documented as of this encounter Miscellaneous [...] Preferred pharmacy: [id number] - [address] Comment: Sent from my iPad documented in this encounter Plan of Treatment Upcoming Encounters Date Type Department Care Team (Late st Contact Info) Description 09/07/2024 10:00 AM CDT Office Visit [facility] [address] 200 [place] [phone] Fransisco Eddy MD [address] [place] [address] 88 [place] [address] 09/18/2024 2:00 PM CDT Virtual Visit [facility] [address] [place] [address] 105 [place] [address] Shanna Vang, PARobinson [address] [place] [address] 750574 03/29/2025 3:40 PM CDT Office Visit [address] [phone] Alfreda Ray PA-C [address] [place] [address] documented as of this encounter Visit Diagnoses Diagnosis Insomnia, unspecified documented in this encounter Additional Health Concerns Infection Onset Date Last Indicated Resolved Time Rule Out COVID-19 05/08/2021 05/08/2021 05/09/2021 9:08 PM GATE MORTISER OPERATOR documented as of this encounter Care Teams Textile Bag Sewer Relationship Specialty Start Date End Date Esperanza Gatica MD PCP - General Family Practice 10/13/11 12/29/21 [place] [address] [place] [address] PCP - Assigned PCP 12/05/17 08/23/18 Alfreda Ray PA-C [address] [place] [address] 64164 PCP - General Family Medicine 12/30/21 [place] [address] [address] [place], LISBETH [address] Assigned PCP 12/05/17 09/30/19 [place] [address] [place] [address] Assigned PCP 10/01/19 03/02/20 [place] [address] [place] [address] Assigned PCP 03/03/20 05/25/20 [place] [address] [place] [address] Assigned PCP 05/26/20 09/28/20 [place] [address] [place] [address] Assigned PCP 09/29/20 07/31/22 [place] [address] [place] [address] Assigned Musculoskeletal Provider 10/20/20 04/17/22 Alfreda Ray PA-C [address] [place] [address] 858772 Referring Physician Family Medicine 12/31/21 Katrin Orellana PA-C [address] [place] [address] [phone] Physician Policy Writer Dermatology 12/31/21 Shanna Vang PA-C [address] [place] [address] 496644 Assigned Cancer Care Provider 01/10/22 Fransisco Eddy MD [address] [place] [address] 101485 Assigned Rheumatology Provider 05/09/22 [place] [address] [facility] [place] [place] 6052[address] Assigned Pain Medication Provider 06/29/22 09/04/22 [place] [address] [facility] [address] Assigned PCP 08/15/22 08/28/22 Katrin Orellana PA-C [address] [place] [address] 926095 Assigned Surgical Provider 08/15/22 02/10/24 Cristina Hsieh [facility] [address] [facility] [place] [address] Pharmacist Pharmacist 09/07/22 Alfreda Ray PA-C [address] [place] [address] 97602 Assigned Pain Medication Provider 09/05/22 09/10/23 Alfreda Ray PA-C [address] [place] [address] 82511 Assigned PCP 08/29/22 Cristina Hsieh, [facility] [address] [place] [address]14 Assigned MTM Pharmacist 09/26/22 Dakota Tatum MD [address] [place] [address]806 Cardiovascular Disease 03/25/23 Dakota Tatum MD [address] [place] [address] 43711 Assigned Heart and Vascular Provider 05/01/23 [place] [address] [address], [address] [address] Assigned Musculoskeletal Provider 04/12/24 documented as of this encounter
--- OUTSIDE RECORDS SUMMARY | 2024-07-28 14:25 | XMS_ITS | Encounter Summary ---
Author Organization [place] Address [address] [place] [address] Care Team Providers Care Dishroom Attendant Name Role Phone Esperanza Gatica MD Primary Care Provider + Esperanza Gatica MD Unavailable +[phone] Esperanza Gatica MD Unavailable +[phone] Esperanza Gatica MD Unavailable +[phone] Esperanza Gatica MD Unavailable +[phone] Esperanza Gatica MD Unavailable +[phone] Esperanza Gatica MD Unavailable +[phone] Jesús Orourke MD Unavailable Alfreda RayC Primary Care Provider + Alfreda Ray PA-C Unavailable + [phone] Katrin Orellana PA-C Unavailable +[phone] Shanna VangC Unavailable +[phone] Fransisco Eddy MD Unavailable +[phone] Esperanza Gatica MD Unavailable +[phone] Esperanza Gatica MD Unavailable +[phone] Katrin Orellana PA-C Unavailable Cristina Hsieh [facility] Unavailable Cory Alfreda Liu PA-C Unavailable +[phone] Ho Raymustapha Liu PA-C Unavailable +[phone] Cristina Hsieh [facility] Unavailable +[phone] Dakota Tatum MD Unavailable +[phone] Dakota Tatum MD Unavailable [phone] Srinivas Marie DO Unavailable [phone] Reason for Visit * Reason Onset Date Comments Medication Question 05/09/2014 Ambien and H ydrocodone Encounter Details Date Type Department Care Team (Late st Contact Info) Description 05/09/2014 MyC Medical Advice [address], [address] [place] [address] [place] [address] [place] [address] Medication Question (Ambien and Hydrocodone) Social History Tobacco Use Types Packs/Day Years Used Date Smoking Tobacco: Former Cigarettes Q uit: 06/21/1973 Smokeless Tobacco: Former Alcohol Use Standard Drinks/Week Comments Yes 0 (1 standard drink = 0.6 oz pur e alcohol) rarely Comments No Sex and Gender Information Value Date Recorded Sex Assigned at Female 08/17/2018 7:56 AM REHAB LIAISON Legal Sex Female 4:24 AM REHAB LIAISON Gender Identity Female 08/17/2018 7:56 AM REHAB LIAISON Sexual Orientation Straight 08/17/2018 7: 56 AM REHAB LIAISON documented as of this encounter Miscellaneous Notes * Telephone Encounter - Leigha Rinaldi RN - 06/11/2014 11:53 AM CST RX faxed. Leigha Rinaldi RN B LIAISON * Telephone Encounter - Royer Brumfield MD - 06/11/2014 11:26 AM REHAB LIAISON OK, I switched her to 5mg tabs so insurance shouldn't mess with the quantity any more. She should take one full tab when needed. Note that med is NOT intended for nightly use; provided quantity is for one month. Royer Brumfield MD B LIAISON * Telephone Encounter - Leigha Rinaldi RN - 06/11/2014 10:48 AM CST Spoke with patient. She only got quantity #15 dispensed on 05/14/2014 so rx only lasted 1 month. (insurance probably dispensed it that way) Patient will run out of med. Please consider refill. Leigha Rinaldi RN B LIAISON * Telephone Encounter - Royer Brumfield MD - 06/11/2014 9:01 AM REHAB LIAISON Ambien filled 05/07/14 was marked as a two month refill. Royer Brumfield MD B LIAISON * Telephone Encounter - Leigha Rinaldi RN [...] AMBIEN 03/12/2014 #90 HYDROCODONE Leigha Rinaldi RN B LIAISON documented in this encounter Plan of Treatment Upcoming Encounters Date Type Department Care Team (Late st Contact Info) Description 09/07/2024 10:00 AM CDT Office Visit [address] [address] Fransisco Eddy MD [address] [facility] 88 [place] [address] 09/18/2024 2:00 PM CDT Virtual Visit [facility] [address] [place] [phone] Shanna Vang PA-C [address] [place] [address] 03/29/2025 3:40 PM CDT Office Visit [address] [phone] Alfreda Ray PA-C [address] [place] [address] 855292 documented as of this encounter Visit Diagnoses Diagnosis Osteoarthritis- Primary Osteoarthrosis, unspecified whether generalized or localized, unspecified site INSOMNIA NEC Insomnia, unspecified documented in this encounter Additional Health Concerns Infection Onset Date Last Indicated Resolved Time Rule Out COVID-19 05/08/2021 05/08/2021 05/09/2021 9:08 PM REHAB LIAISON documented as of this encounter Care Teams Dishroom Attendant Relationship Specialty Start Date End Date Esperanza Gatica MD PCP - General Family Practice 10/13/11 12/29/21 [place] [address] [place] [address] PCP - Assigned PCP 12/05/17 08/23/18 Alfreda Ray PA-C [address] [place] [address] PCP - General Family Medicine 12/30/21 [place] [address] [address] [address] Assigned PCP 12/05/17 09/30/19 [place] [address] [address] 35698 Assigned PCP 10/01/19 03/02/20 [place] [address] [address] 80008 Assigned PCP 03/03/20 05/25/20 [place] [address] [address] [address]35[address] Assigned PCP 05/26/20 09/28/20 [place] [address] [address] [address] Assigned PCP 09/29/20 07/31/22 [place] [address] [place], [place] [address] Assigned Musculoskeletal Provider 10/20/20 04/17/22 Alfreda Ray PA-C [address] [place] [address] [phone] Referring Physician Family Medicine 12/31/21 Katrin Orellana PA-C [address] [place] [address] 864365 Physician Systems Architecture Analyst Dermatology 12/31/21 Shanna Vang PA-C [address] [place] [address] Assigned Cancer Care Provider 01/10/22 Fransisco Eddy MD [address] [place] [address] [phone] Assigned Rheumatology Provider 05/09/22 [place] [address] [place] [address] Assigned Pain Medication Provider 06/29/22 09/04/22 [place] [address] [place] [address] Assigned PCP 08/15/22 08/28/22 Katrin Orellana PA-C [address] [place] [address] Assigned Surgical Provider 08/15/22 02/10/24 Cristina Hsieh [facility] [address] [place] [address] [place] [address] Pharmacist Pharmacist 09/07/22 Alfreda Ray PA-C [address] [place] [address] 796682 Assigned Pain Medication Provider 09/05/22 09/10/23 Alfreda Ray PA-C [address] [place] [address]267 Assigned PCP 08/29/22 Cristina Hsieh, [facility] [address] [facility] [address] [place] [address] Assigned MTM Pharmacist 09/26/22 Dakota Tatum MD [address] [place] [address] 099585 Cardiovascular Disease 03/25/23 Dakota Tatum MD [address] [place] [address] 156865 Assigned Heart and Vascular Provider 05/01/23 [place] [address] [address], [facility] [address] [place] [address] Assigned Musculoskeletal Provider 04/12/24 documented as of this encounter
--- OUTSIDE RECORDS SUMMARY | 2024-07-28 14:25 | XMS_ITS | Encounter Summary ---
Author Organization [place] Address [address] [place] [address] Care Team Providers Care Barbecue Cook Name Role Phone Esperanza Gatica MD Primary Care Provider + Esperanza Gatica MD Unavailable +[phone] Esperanza Gatica MD Unavailable +[phone] Esperanza Gatica MD Unavailable +[phone] Esperanza Gatica MD Unavailable +[phone] Esperanza Gatica MD Unavailable +[phone] Esperanza Gatica MD Unavailable +[phone] Jesús Orourke MD Unavailable Alfreda RayC Primary Care Provider + Alfreda Ray PA-C Unavailable + [phone] Katrin Orellana PA-C Unavailable [phone] Shanna VangC Unavailable +[phone] Fransisco Eddy MD Unavailable [phone] Esperanza Gatica MD Unavailable +[phone] Esperanza Gatica MD Unavailable +[phone] Katrin Orellana PA-C Unavailable Cristina Hsieh [facility] Unavailable Ho Raymustapha Liu PA-C Unavailable [phone] Alfreda Ray Alexa KING Unavailable +[phone] Cristina Hsieh [facility] Unavailable [phone] Dakota Tatum MD Unavailable Dakota Tatum MD Unavailable [phone] Srinivas Marie DO Unavailable [phone] Reason for Visit * Reason Onset Date Comments Refill Request 01/01/2013 ultram Encounter Details Date Type Department Care Team (Late st Contact Info) Description 01/01/2013 MyC Refill M [address], [address] [place] [address] [place] [address] [place] [address] Refill Request (ultram) Social History Tobacco Use Types Packs/Day Years Used Date Smoking Tobacco: Former Cigarettes Q uit: 06/21/1973 Smokeless Tobacco: Former Alcohol Use Standard Drinks/Week Comments Yes 0 (1 standard drink = 0.6 oz pur e alcohol) rarely Comments No Sex and Gender Information Value Date Recorded Sex Assigned at Female 08/17/2018 7:56 AM MANUFACTURING ENGINEER AUTOMOTIVE Legal Sex Female 4:24 AM MANUFACTURING ENGINEER AUTOMOTIVE Gender Identity Female 08/17/2018 7:56 AM MANUFACTURING ENGINEER AUTOMOTIVE Sexual Orientation Straight 08/17/2018 7: 56 AM MANUFACTURING ENGINEER AUTOMOTIVE documented as of this encounter Miscellaneous Notes [...] MG tablet [Esperanza Gatica MD] Preferred pharmacy: [id number] Comment: Sent from my iPad documented in this encounter Plan of Treatment Upcoming Encounters Date Type Department Care Team (Late st Contact Info) Description 09/07/2024 10:00 AM CDT Office Visit [facility] [address] [place] [phone] Fransisco Eddy MD [address] [place] [address] 88 [place], [place] 170695 09/18/2024 2:00 PM CDT Virtual Visit [facility] [place] [address] 105 [place] [phone] Shanna Vang, PARobinson [address] [place] [address] 03/29/2025 3:40 PM CDT Office Visit [address] [place] [phone] Alfreda Ray PA-C [address] [place] [address] [phone] documented as of this encounter Visit Diagnoses Diagnosis Knee pain- Primary Pain in joint, lower leg documented in this encounter Additional Health Concerns Infection Onset Date Last Indicated Resolved Time Rule Out COVID-19 05/08/2021 05/08/2021 05/09/2021 9:08 PM MANUFACTURING ENGINEER AUTOMOTIVE documented as of this encounter Care Teams Barbecue Cook Relationship Specialty Start Date End Date Esperanza Gatica MD PCP - General Family Practice 10/13/11 12/29/21 [place] [address] [place] [address] PCP - Assigned PCP 12/05/17 08/23/18 Alfreda Ray PA-C [address] [place] [address] PCP - General Family Medicine 12/30/21 [place] [address] [place] [address] Assigned PCP 12/05/17 09/30/19 [place] [address] [place] [address] Assigned PCP 10/01/19 03/02/20 [place] [address] [place] [address] Assigned PCP 03/03/20 05/25/20 [place] [address] [place] [address] Assigned PCP 05/26/20 09/28/20 [place] [address] [place] [address] Assigned PCP 09/29/20 07/31/22 Jesú[place] [address] [address] Assigned Musculoskeletal Provider 10/20/20 04/17/22 Alfreda Ray PA-C [address] [place] [address] 426292 Referring Physician Family Medicine 12/31/21 Katrin Orellana PA-C [address] [place] [address] [phone] Physician Design Teacher Dermatology 12/31/21 Shanna Vang PA-C [facility] [address] 338904 Assigned Cancer Care Provider 01/10/22 Fransisco Eddy MD [address] [place] [address] [phone] Assigned Rheumatology Provider 05/09/22 [place] [address] [address]IA [address] Assigned Pain Medication Provider 06/29/22 09/04/22 [place] [address] [address] [address] Assigned PCP 08/15/22 08/28/22 Katrin Orellana PA-C [address] [place] [address] [phone] Assigned Surgical Provider 08/15/22 02/10/24 Cristina Hsieh [facility] [address] [facility] [place]ETH HERNANDEZ [address] Pharmacist Pharmacist 09/07/22 Alfreda Ray PA-C [address] [place] [address] 640052 Assigned Pain Medication Provider 09/05/22 09/10/23 Alfreda Ray PA-C [address] [place] [address] 156752 Assigned PCP 08/29/22 Cristina Hsieh [facility] [address] [place] [address] Assigned MTM Pharmacist 09/26/22 Dakota Tatum MD [address] [place] [address] 102595 Cardiovascular Disease 03/25/23 Dakota Tatum MD [address] [place] [address] Assigned Heart and Vascular Provider 05/01/23 [place] [address] [place] , [address] [address] Assigned Musculoskeletal Provider 04/12/24 documented as of this encounter
--- OUTSIDE RECORDS SUMMARY | 2024-07-28 14:25 | XMS_ITS | Encounter Summary ---
Author Organization [place] Address [address] [place] [address] Care Team Providers Care Statistical Machine Mechanic Name Role Phone Esperanza Gatica MD Primary Care Provider + Esperanza Gatica MD Unavailable +[phone] Esperanza Gatica MD Unavailable +[phone] Esperanza Gatica MD Unavailable +[phone] Esperanza Gatica MD Unavailable +[phone] Esperanza Gatica MD Unavailable +[phone] Esperanza Gatica MD Unavailable +[phone] Jesús Orourke MD Unavailable Alfreda RayC Primary Care Provider + Alfreda Ray PA-C Unavailable + [phone] Katrin Orellana PA-C Unavailable [phone] Shanna VangC Unavailable +[phone] Fransisco Eddy MD Unavailable [phone] Esperanza Gatica MD Unavailable +[phone] Esperanza Gatica MD Unavailable +[phone] Katrin Orellana PA-C Unavailable Cristina Hsieh [facility] Unavailable Alfreda Ray Alexa KING Unavailable +[phone] Alfreda Ray Alexa KING Unavailable +[phone] Cristina Hsieh [facility] Unavailable [phone] Dakota Tatum MD Unavailable Dakota Tatum MD Unavailable [phone] Sirnivas Marie DO Unavailable [phone] Reason for Visit * Reason Onset Date Comments Refill Request 10/28/2012 Bryant Bazzi l Encounter Details Date Type Department Care Team (Late st Contact Info) Description 10/28/2012 MyC Refill M [address], [address] [place] [address] [place] [address] [place] [address] Refill Request (Vicodin, Tramadol) Social History Tobacco Use Types Packs/Day Years Used Date Smoking Tobacco: Former Cigarettes Q uit: 06/21/1973 Smokeless Tobacco: Former Alcohol Use Standard Drinks/Week Comments Yes 0 (1 standard drink = 0.6 oz pur e alcohol) rarely Comments No Sex and Gender Information Value Date Recorded Sex Assigned at Female 08/17/2018 7:56 AM BUNCH MAKER Legal Sex Female 4:24 AM BUNCH MAKER Gender Identity Female 08/17/2018 7:56 AM BUNCH MAKER Sexual Orientation Straight 08/17/2018 7: 56 AM BUNCH MAKER documented as of this encounter Miscellaneous Notes * Telephone Encounter - Leigha Rinaldi - 10/28/2012 11:27 AM CDT MigdaliaAmeriprimevictoria message sent to patient. Leigha Rinaldi RN [...] Rinaldi - 10/28/2012 10:36 AM [facility] Original authorizing provider: Esperanza Gatica MD Alexandria Fregoso Leeann would like a refill of the following medications: HYDROcodone-acetaminophen (VICODIN) 5-500 MG per tablet [Esperanza Gatica MD] Preferred pharmacy: [facility] [address] [place] [address] Comment: Medication renewals requested in this message routed to other providers: traMADol (ULTRAM) 50 MG tablet [Royer Brumfield MD, MD] documented in this encounter Plan of Treatment Upcoming Encounters Date Type Department Care Team (Late st Contact Info) Description 09/07/2024 10:00 AM CDT Office Visit [facility] [address] [phone] Fransisco Eddy MD [address] [place] [address]405 09/18/2024 2:00 PM CDT Virtual Visit [facility] [address] [place] [address] 105 [place] [phone] Shanna Vang, PAFilemonC [address] [place] [address] 273454 03/29/2025 3:40 PM CDT Office Visit [address] [address] Alfreda Ray PA-C [address] [place] [address] documented as of this encounter Visit Diagnoses Diagnosis Osteoarthritis- Primary Osteoarthrosis, unspecified whether generalized or localized, unspecified site Knee pain Pain in joint, lower leg documented in this encounter Additional Health Concerns Infection Onset Date Last Indicated Resolved Time Rule Out COVID-19 05/08/2021 05/08/2021 05/09/2021 9:08 PM BUNCH MAKER documented as of this encounter Care Teams Statistical Machine Mechanic Relationship Specialty Start Date End Date Esperanza Gatica MD PCP - General Family Practice 10/13/11 12/29/21 [place] [address] [address] [address] PCP - Assigned PCP 12/05/17 08/23/18 Alfreda Ray PA-C [address] [place] [address] PCP - General Family Medicine 12/30/21 [place] [address] [address] GARCIA [address] Assigned PCP 12/05/17 09/30/19 [place] [address] [address] [address] Assigned PCP 10/01/19 03/02/20 [place] [address] [place] [address] Assigned PCP 03/03/20 05/25/20 [place] [address] [place] [address] Assigned PCP 05/26/20 09/28/20 [place] [address] [place] [address] Assigned PCP 09/29/20 07/31/22 Jesú[place] [address] [place] [address] Assigned Musculoskeletal Provider 10/20/20 04/17/22 Alfreda Ray PA-C [address] [place] [address] [phone] Referring Physician Family Medicine 12/31/21 Katrin Orellana PA-C [address] [place] [address] 317335 Physician Snow Removal/Plowing Dermatology 12/31/21 Shanna Vang PA-C [address] [place] [address] 554664 Assigned Cancer Care Provider 01/10/22 Fransisco Eddy MD [address] [place] [address] 773975 Assigned Rheumatology Provider 05/09/22 [place] [address] [place] [address] Assigned Pain Medication Provider 06/29/22 09/04/22 [place] [address] [place] [address] Assigned PCP 08/15/22 08/28/22 Katrin Orellana PA-C [address] [place] [address] 624405 Assigned Surgical Provider 08/15/22 02/10/24 Cristina Hsieh [facility] [address] [place] [address] [place] [address] Pharmacist Pharmacist 09/07/22 Alfreda Ray PA-C [address] [place] [address] 595622 Assigned Pain Medication Provider 09/05/22 09/10/23 Alfreda Ray PA-C [address] [place] [address] Assigned PCP 08/29/22 Cristina Hsieh [facility] [address] [phone] Assigned MTM Pharmacist 09/26/22 Dakota Tatum MD [address] [place] [address] Cardiovascular Disease 03/25/23 Dakota Tatum MD [address] [place] [address] Assigned Heart and Vascular Provider 05/01/23 [place] [address] [address], [address] [address] Assigned Musculoskeletal Provider 04/12/24 documented as of this encounter
--- OUTSIDE RECORDS SUMMARY | 2024-07-28 14:25 | XMS_ITS | Encounter Summary ---
Author Organization [place] Address [address] [place] [address] Care Team Providers Care Aitchbone Breaker Name Role Phone Esperanza Gatica MD Primary Care Provider + Esperanza Gatica MD Unavailable +[phone] Esperanza Gatica MD Unavailable +[phone] Esperanza Gatica MD Unavailable +[phone] Esperanza Gatica MD Unavailable +590 Esperanza Gatica MD Unavailable +[phone] Esperanza Gatica MD Unavailable +[phone] Jesús Orourke MD Unavailable Alfreda RayC Primary Care Provider + Alfreda Ray PA-C Unavailable + [phone] Katrin Orellana PA-C Unavailable +[phone] Shanna VangC Unavailable +[phone] Fransisco Eddy MD Unavailable +[phone] Esperanza Gatica MD Unavailable +[phone] Esperanza Gatica MD Unavailable +[phone] Katrin Orellana PA-C Unavailable Cristina Hsieh [facility] Unavailable Cory Alfreda Liu PA-C Unavailable +[phone] Ho Raymustapha Liu PA-C Unavailable +[phone] Cristina Hsieh [facility] Unavailable +[phone] Dakota Tatum MD Unavailable [phone] Dakota Tatum MD Unavailable +[phone] Srinivas Marie DO Unavailable +[phone] Reason for Visit * Reason Onset Date Comments Refill Request 12/11/2012 Trazodone 50mg Encounter Details Date Type Department Care Team (Late st Contact Info) Description 12/11/2012 MyC Refill [address], [address] [place] [address] [place] [address] [place] [address] Refill Request (Trazodone 50mg) Social History Tobacco Use Types Packs/Day Years Used Date Smoking Tobacco: Former Cigarettes Q uit: 06/21/1973 Smokeless Tobacco: Former Alcohol Use Standard Drinks/Week Comments Yes 0 (1 standard drink = 0.6 oz pur e alcohol) rarely Comments No Sex and Gender Information Value Date Recorded Sex Assigned at Female 08/17/2018 7:56 AM SITE OPERATIONS MANAGER Legal Sex Female 4:24 AM SITE OPERATIONS MANAGER Gender Identity Female 08/17/2018 7:56 AM SITE OPERATIONS MANAGER Sexual Orientation Straight 08/17/2018 7: 56 AM SITE OPERATIONS MANAGER documented as of this encounter Miscellaneous [...] MG tablet [Esperanza Gatica MD] Preferred pharmacy: [id number] Comment: documented in this encounter Plan of Treatment Upcoming Encounters Date Type Department Care Team (Late st Contact Info) Description 09/07/2024 10:00 AM CDT Office Visit [facility] [address] 200 [place] [phone] Fransisco Eddy MD [address] [place] [address] 88 [place] [address] 09/18/2024 2:00 PM CDT Virtual Visit [facility] [address] [place] [address] 105 [place] [address] Shanna Vang, PARobinson [address] [place] [address] 03/29/2025 3:40 PM CDT Office Visit [address] [place] [phone] Alfreda Ray PA-C [address] [place] [address] 526662 documented as of this encounter Visit Diagnoses Diagnosis Insomnia, unspecified- Primary documented in this encounter Additional Health Concerns Infection Onset Date Last Indicated Resolved Time Rule Out COVID-19 05/08/2021 05/08/2021 05/09/2021 9:08 PM SITE OPERATIONS MANAGER documented as of this encounter Care Teams Aitchbone Breaker Relationship Specialty Start Date End Date Esperanza Gatica MD PCP - General Family Practice 10/13/11 12/29/21 [place] [address] [place] [address] PCP - Assigned PCP 12/05/17 08/23/18 Alfreda Ray PA-C [address] [place] [address] PCP - General Family Medicine 12/30/21 [place] [address] [place] [address] Assigned PCP 12/05/17 09/30/19 [place] [address] [place] [address] Assigned PCP 10/01/19 03/02/20 [place] [address] [place] [address] Assigned PCP 03/03/20 05/25/20 [place] [address] [place] [address] Assigned PCP 05/26/20 09/28/20 [place] [address] [place] [address] Assigned PCP 09/29/20 07/31/22 [place] [address] [place] [address] Assigned Musculoskeletal Provider 10/20/20 04/17/22 Alfreda Ray PA-C [address] [place] [address] 727982 Referring Physician Family Medicine 12/31/21 Katrin Orellana PA-C [address] [place] [address] 260415 Physician Child And Family Counselor Dermatology 12/31/21 Shanna Vang PA-C [address] 942804 Assigned Cancer Care Provider 01/10/22 Fransisco Eddy MD [address] [place] [address] 310645 Assigned Rheumatology Provider 05/09/22 [place] [address] [place] GARCIA [address] Assigned Pain Medication Provider 06/29/22 09/04/22 [place] [address] [place]ARCIA [address] Assigned PCP 08/15/22 08/28/22 Katrin Orellana PA-C [address] [place] [address] 740895 Assigned Surgical Provider 08/15/22 02/10/24 Cristina Hsieh [facility] 3305 [facility] LISBETH HERNANDEZ [address] Pharmacist Pharmacist 09/07/22 Alfreda Ray PA-C [address] [place] [address] 446002 Assigned Pain Medication Provider 09/05/22 09/10/23 Alfreda Ray PA-C [address] [place] [address] 902222 Assigned PCP 08/29/22 Cristina Hsieh [facility] [address] [place] [address] Assigned MTM Pharmacist 09/26/22 Dakota Tatum MD [address] [place] [address]75 Cardiovascular Disease 03/25/23 Dakota Tatum MD [address] [place] [address] Assigned Heart and Vascular Provider 05/01/23 [place] [address] [address] , [address] [address] Assigned Musculoskeletal Provider 04/12/24 documented as of this encounter
--- OUTSIDE RECORDS SUMMARY | 2024-07-28 14:25 | XMS_ITS | Encounter Summary ---
Author Organization [place] Address [address] [place] [address] Care Team Providers Care Patient Care Provider Name Role Phone Esperanza Gatica MD Primary Care Provider + Esperanza Gatica MD Unavailable +[phone] Esperanza Gatica MD Unavailable +[phone] Esperanza Gatica MD Unavailable +[phone] Esperanza Gatica MD Unavailable +[phone] Esperanza Gatica MD Unavailable +[phone] Esperanza Gatica MD Unavailable +[phone] Jesús Orourke MD Unavailable Alfreda RayC Primary Care Provider + Alfreda Ray PA-C Unavailable + [phone] Katrin Orellana PA-C Unavailable +[phone] Shanna VangC Unavailable +[phone] Fransisco Eddy MD Unavailable +[phone] Esperanza Gatica MD Unavailable +[phone] Esperanza Gatica MD Unavailable +[phone] Katrin Orellana PA-C Unavailable Cristina Hsieh [facility] Unavailable Cory Alfreda Liu PA-C Unavailable +[phone] Ho Raymustapha Liu PA-C Unavailable +[phone] Cristina Hsieh [facility] Unavailable [phone] Dakota Tatum MD Unavailable [phone] Dakota Tatum MD Unavailable [phone] Srinivas Marie DO Unavailable [phone] Reason for Visit * Reason Onset Date Comments Refill Request 07/02/2014 Tramadol 50mg Encounter Details Date Type Department Care Team (Late st Contact Info) Description 07/02/2014 MyC Medical Advice [address], [facility] 100 [place] [address] [place] [address] [place] [address] Refill Request (Tramadol 50mg) Social History Tobacco Use Types Packs/Day Years Used Date Smoking Tobacco: Former Cigarettes Q uit: 06/21/1973 Smokeless Tobacco: Former Alcohol Use Standard Drinks/Week Comments Yes 0 (1 standard drink = 0.6 oz pur e alcohol) rarely Comments No Sex and Gender Information Value Date Recorded Sex Assigned at Female 08/17/2018 7:56 AM CROP AND SOIL TECHNICIAN Legal Sex Female 4:24 AM CROP AND SOIL TECHNICIAN Gender Identity Female 08/17/2018 7:56 AM CROP AND SOIL TECHNICIAN Sexual Orientation Straight 08/17/2018 7: 56 AM CROP AND SOIL TECHNICIAN documented as of this encounter Miscellaneous Notes * Telephone Encounter - Leigha Rinaldi RN - 07/03/2014 9:13 AM CST Pending Prescriptions: Disp Refills traMADol (ULTRAM) 50 MG tablet 30 tab*0 Sig: Take 1 tablet (50 mg) by mouth every 6 hours as needed for pain Last OV: 03/29/2014 Reason: IBS Last filled: 06/04/2014 #30 Leigha Rinaldi RN AND SOIL TECHNICIAN documented in this encounter Plan of Treatment Upcoming Encounters Date Type Department Care Team (Late st Contact Info) Description 09/07/2024 10:00 AM CDT Office Visit [facility] [place] 65[address] [facility] 200 [place] [phone] Fransisco Eddy MD [address] [place] [address] 09/18/2024 2:00 PM CDT Virtual Visit [facility] [address] [place] [address] 105 [place] [phone] Shanna Vang, PARobinson [address] [place] [address] 03/29/2025 3:40 PM CDT Office Visit [address] [address] Alfreda Ray PA-C [address] [place] [address] [phone] documented as of this encounter Visit Diagnoses Diagnosis HTN (hypertension), benign- Primary Essential hypertension, benign documented in this encounter Additional Health Concerns Infection Onset Date Last Indicated Resolved Time Rule Out COVID-19 05/08/2021 05/08/2021 05/09/2021 9:08 PM CROP AND SOIL TECHNICIAN documented as of this encounter Care Teams Patient Care Provider Relationship Specialty Start Date End Date Esperanza Gatica MD PCP - General Family Practice 10/13/11 12/29/21 [place] [address] [place] GARCIA [address] PCP - Assigned PCP 12/05/17 08/23/18 Alfreda Ray PA-C [address] [place] [address] PCP - General Family Medicine 12/30/21 [place] [address] [place] [address] Assigned PCP 12/05/17 09/30/19 [place] [address] [place] [address] Assigned PCP 10/01/19 03/02/20 [place] [address] [place] [address] Assigned PCP 03/03/20 05/25/20 [place] [address] [place] [address] Assigned PCP 05/26/20 09/28/20 [place] [address] [place] [address] Assigned PCP 09/29/20 07/31/22 [place] [address] [place] [address] Assigned Musculoskeletal Provider 10/20/20 04/17/22 Alfreda Ray PA-C [address] [place] [address] Referring Physician Family Medicine 12/31/21 Katrin Orellana PA-C [address] [place] [address] Physician Cutter Inspector Dermatology 12/31/21 Shanna Vang PA-C [facility] [address] 366054 Assigned Cancer Care Provider 01/10/22 Fransisco Eddy MD [address] [place] [address] 300475 Assigned Rheumatology Provider 05/09/22 [place] [address] [place] [address] Assigned Pain Medication Provider 06/29/22 09/04/22 [place] [address] [place] [address] Assigned PCP 08/15/22 08/28/22 Katrin Orellana PA-C [address] [place] [address] 48067 Assigned Surgical Provider 08/15/22 02/10/24 Cristina Hsieh [facility] [address] [place] [address] LISBETH HERNANDEZ [address] Pharmacist Pharmacist 09/07/22 Alfreda Ray PA-C [address] [place] [address] Assigned Pain Medication Provider 09/05/22 09/10/23 Alfreda Ray PA-C [address] [place] [address] Assigned PCP 08/29/22 Cristina Hsieh, [facility] [address] [place] [address] Assigned MTM Pharmacist 09/26/22 Dakota Tatum MD [address] [place] [address] 259415 Cardiovascular Disease 03/25/23 Dakota Tatum MD [address] [place] [address] 171135 Assigned Heart and Vascular Provider 05/01/23 [place] [address] [address] Assigned Musculoskeletal Provider 04/12/24 documented as of this encounter
--- OUTSIDE RECORDS SUMMARY | 2024-07-28 14:26 | XMS_ITS | Encounter Summary ---
Author Organization [place] Address [address] [place] [address] Care Team Providers Care Qa Intern Name Role Phone Esperanza Gatica MD Primary Care Provider + Esperanza Gatica MD Unavailable +[phone] Esperanza Gatica MD Unavailable +751 Esperanza Gatica MD Unavailable +463 Esperanza Gatica MD Unavailable +223 Esperanza Gatica MD Unavailable +[phone] Esperanza Gatica MD Unavailable +[phone] Jesús Orourke MD Unavailable Alfreda RayC Primary Care Provider + Alfreda Ray PA-C Unavailable + [phone] Katrin Orellana PA-C Unavailable [phone] Shanna VangC Unavailable +[phone] Fransisco Eddy MD Unavailable +[phone] Esperanza Gatica MD Unavailable +[phone] Esperanza Gatica MD Unavailable +[phone] Katrin Orellana PA-C Unavailable Cristina Hsieh [facility] Unavailable Cory Alfreda Liu PA-C Unavailable +[phone] Ho Raymustapha Liu PA-C Unavailable +[phone] Cristina Hsieh [facility] Unavailable [phone] Dakota Tatum MD Unavailable [phone] Dakota Tatum MD Unavailable +[phone] Srinivas Marie DO Unavailable [phone] Reason for Visit * Reason Onset Date Comments Back Pain 10/20/2013 ortho referral Encounter Details Date Type Department Care Team (Late st Contact Info) Description 10/20/2013 MyC Medical Advice [address], [address] [place] [address] [place] [address] [place] [address] Back Pain (ortho referral) Social History Tobacco Use Types Packs/Day Years Used Date Smoking Tobacco: Former Cigarettes Q uit: 06/21/1973 Smokeless Tobacco: Former Alcohol Use Standard Drinks/Week Comments Yes 0 (1 standard drink = 0.6 oz pur e alcohol) rarely Comments No Sex and Gender Information Value Date Recorded Sex Assigned at Female 08/17/2018 7:56 AM MOBILE LOUNGE DRIVER Legal Sex Female 4:24 AM MOBILE LOUNGE DRIVER Gender Identity Female 08/17/2018 7:56 AM MOBILE LOUNGE DRIVER Sexual Orientation Straight 08/17/2018 7: 56 AM MOBILE LOUNGE DRIVER documented as of this encounter Miscellaneous [...] Visit [facility] [place] 65[address] [facility] 200 [place] [phone] Fransisco Eddy MD [address] [place] [address] 88 [place] [address] 09/18/2024 2:00 PM CDT Virtual Visit [facility] [address] [place] [address] 105 [place] [address] Shanna Vang PA-C [address] [place] [address] 03/29/2025 3:40 PM CDT Office Visit [address] [place] [phone] Alfreda Ray PA-C [address] [place] [address] 992842 documented as of this encounter Visit Diagnoses Not on filedocumented in this encounter Additional Health Concerns Infection Onset Date Last Indicated Resolved Time Rule Out COVID-19 05/08/2021 05/08/2021 05/09/2021 9:08 PM MOBILE LOUNGE DRIVER documented as of this encounter Care Teams Qa Intern Relationship Specialty Start Date End Date Esperanza Gatica MD PCP - General Family Practice 10/13/11 12/29/21 [place] [address] [place] [address] PCP - Assigned PCP 12/05/17 08/23/18 Alfreda Ray [place] [address] PCP - General Family Medicine 12/30/21 [place] [address] [address] [place] [address] Assigned PCP 12/05/17 09/30/19 [place] [address] [address] [place] [address] Assigned PCP 10/01/19 03/02/20 [place] [address] [place] [address] Assigned PCP 03/03/20 05/25/20 [place] [address] [place] [address] Assigned PCP 05/26/20 09/28/20 [place] [address] [place] [address] Assigned PCP 09/29/20 07/31/22 [place] [address] [place] [address] Assigned Musculoskeletal Provider 10/20/20 04/17/22 Alfreda Ray PA-C 4151 [place] [address] Referring Physician Family Medicine 12/31/21 Katrin Orellana PA-C 420 [facility] 98 [place] [address] Physician Window Shade Cloth Sewer Dermatology 12/31/21 Shanna Vang PA-C [address] [place] [address] 910704 Assigned Cancer Care Provider 01/10/22 Fransisco Eddy MD [address] [place] [address] 509545 Assigned Rheumatology Provider 05/09/22 [place] [address] [place] [address] Assigned Pain Medication Provider 06/29/22 09/04/22 [place] [address] [place] [address] Assigned PCP 08/15/22 08/28/22 Katrin Orellana PA-C [address] [place] [address] Assigned Surgical Provider 08/15/22 02/10/24 Cristina Hsieh [facility] [address] [facility] LISBETH HERNANDEZ [address] Pharmacist Pharmacist 09/07/22 Alfreda Ray PA-C [address] [place] [address]698 Assigned Pain Medication Provider 09/05/22 09/10/23 Alfreda Ray PA-C [address] [place] [address] Assigned PCP 08/29/22 Cristina Hsieh [facility] 1600 [facility] 101 [place] [address] Assigned MTM Pharmacist 09/26/22 Dakota Tatum MD [address] [place] [address] 455295 Cardiovascular Disease 03/25/23 Dakota Tatum MD [address] [place] [address] 590665 Assigned Heart and Vascular Provider 05/01/23 [place] [address] [address], [facility] 300 [place] [address] Assigned Musculoskeletal Provider 04/12/24 documented as of this encounter
--- OUTSIDE RECORDS SUMMARY | 2024-07-28 14:26 | XMS_ITS | Encounter Summary ---
Author Organization [place] Address [address] [place] [address] Care Team Providers Care Utility Assembler Name Role Phone Esperanza Gatica MD Primary Care Provider + Esperanza Gatica MD Unavailable +[phone] Esperanza Gatica MD Unavailable +130 Esperanza Gatica MD Unavailable +[phone] Esperanza Gatica MD Unavailable +[phone] Esperanza Gatica MD Unavailable +604 Esperanza Gatica MD Unavailable +[phone] Jesús Orourke MD Unavailable Alfreda RayC Primary Care Provider + Alfreda Ray PA-C Unavailable + [phone] Katrin Orellana PA-C Unavailable +[phone] Shanna VangC Unavailable +[phone] Fransisco Eddy MD Unavailable +[phone] Esperanza Gatica MD Unavailable +[phone] Esperanza Gatica MD Unavailable +[phone] Katrin Orellana PA-C Unavailable Cristina Hsieh [facility] Unavailable Ho Raymustapha Liu PA-C Unavailable +[phone] Alfreda Ray Alexa KING Unavailable +[phone] Cristina Hsieh [facility] Unavailable +[phone] Dakota Tatum MD Unavailable +[phone] Dakota Tatum MD Unavailable [phone] Srinivas Marie DO Unavailable [phone] Reason for Visit * Reason Onset Date Comments Refill Request 01/07/2014 tramadol Encounter Details Date Type Department Care Team (Late st Contact Info) Description 01/07/2014 MyC Refill [address], [address] [place] [address] [place] [address] [place] [address] Refill Request (tramadol) Social History Tobacco Use Types Packs/Day Years Used Date Smoking Tobacco: Former Cigarettes Q uit: 06/21/1973 Smokeless Tobacco: Former Alcohol Use Standard Drinks/Week Comments Yes 0 (1 standard drink = 0.6 oz pur e alcohol) rarely Comments No Sex and Gender Information Value Date Recorded Sex Assigned at Female 08/17/2018 7:56 AM DIGITAL ENGINEER Legal Sex Female 4:24 AM DIGITAL ENGINEER Gender Identity Female 08/17/2018 7:56 AM DIGITAL ENGINEER Sexual Orientation Straight 08/17/2018 7: 56 AM DIGITAL ENGINEER documented as of this encounter Miscellaneous Notes * Telephone Encounter - Diane Macedo RN - 01/08/2014 8:09 AM CDT Does not meet standard requirement for RN refill protocol. Medication: tramadol Last OV: 10/24/13 Provider: MD ZAIDA Reason for visit: SI joint dysfunction, etc... Last refill: 12/11/13 #30 Please refill if appropriate. Thank you! Diane Macedo RN [facility] Work [employer] * Telephone Encounter - Diane Macedo RN - 01/08/2014 8:08 AM CDT Message from [employer]: Original authorizing provider: Esperanza Gatica MD Alexandria Fregoso Cococecy would like a refill of the following medications: traMADol (ULTRAM) 50 MG tablet [Esperanza Gatica MD] Preferred pharmacy: [id number] Comment: Medication renewals requested in this message routed to other providers: zolpidem (AMBIEN) 10 MG tablet [Royer Brumfield MD] documented in this encounter Plan of Treatment Upcoming Encounters Date Type Department Care Team (Late st Contact Info) Description 09/07/2024 10:00 AM CDT Office Visit [facility] [address] 200 [place] [address] Fransisco Eddy MD [address] [place] [address]55925 09/18/2024 2:00 PM CDT Virtual Visit [facility] [place] [address] [address] [place] [address] Shanna Vang PA-C [address] [place] [address] 03/29/2025 3:40 PM CDT Office Visit [facility] [address] [place] [address] [place] [address] Alfreda Ray PA-C [address] [place] [address] 903402 documented as of this encounter Visit Diagnoses Diagnosis HTN (hypertension), benign Essential hypertension, benign documented in this encounter Additional Health Concerns Infection Onset Date Last Indicated Resolved Time Rule Out COVID-19 05/08/2021 05/08/2021 05/09/2021 9:08 PM DIGITAL ENGINEER documented as of this encounter Care Teams Utility Assembler Relationship Specialty Start Date End Date Esperanza Gatica MD PCP - General Family Practice 10/13/11 12/29/21 [place] [address] [place] [address] PCP - Assigned PCP 12/05/17 08/23/18 Alfreda Ray PA-C [address] [place] [address] PCP - General Family Medicine 12/30/21 [place] [address] [place] [address] Assigned PCP 12/05/17 09/30/19 [place] [address] [place] [address] Assigned PCP 10/01/19 03/02/20 [place] [address] [place] [address] Assigned PCP 03/03/20 05/25/20 [place] [address] [place] [address] Assigned PCP 05/26/20 09/28/20 [place] [address] [place] GARCIA [address] Assigned PCP 09/29/20 07/31/22 Jesú[place] [address] [place] [address] Assigned Musculoskeletal Provider 10/20/20 04/17/22 Alfreda Ray PA-C [address] [place] [address] [phone] Referring Physician Family Medicine 12/31/21 Katrin Orellana PA-C [address] [place] [address] 98 [place], [place] 620[address] Physician Mobile Heavy Equipment Mechanic Dermatology 12/31/21 Shanna Vang PA-C [address] [phone] Assigned Cancer Care Provider 01/10/22 Fransisco Eddy MD [address] [place] [address] 911715 Assigned Rheumatology Provider 05/09/22 [place] [address] [place] GARCIA [address] Assigned Pain Medication Provider 06/29/22 09/04/22 [place] [address] [place] GARCIA [address] Assigned PCP 08/15/22 08/28/22 Katrin Orellana PA-C 420 [facility] 98 [place] [address] Assigned Surgical Provider 08/15/22 02/10/24 Cristina Hsieh [facility] 3305 [facility] LISBETH HERNANDEZ [address] Pharmacist Pharmacist 09/07/22 Alfreda Ray PA-C [address] [place] [address] 829872 Assigned Pain Medication Provider 09/05/22 09/10/23 Alfreda Ray PA-C [address] [place] [address] 529652 Assigned PCP 08/29/22 Cristina Hsieh [facility] [address] [address] Assigned MTM Pharmacist 09/26/22 Dakota Tatum MD [address] [place] [address] Cardiovascular Disease 03/25/23 Dakota Tatum MD [address] [place] [address] Assigned Heart and Vascular Provider 05/01/23 [place] [address] [address] Assigned Musculoskeletal Provider 04/12/24 documented as of this encounter
--- OUTSIDE RECORDS SUMMARY | 2024-07-28 14:26 | XMS_ITS | Encounter Summary ---
Author Organization [facility] Address [address] [place] [address] Care Team Providers Care Alternative Energy Engineer Name Role Phone Esperanza Gatica MD Primary Care Provider + Esperanza Gatica MD Unavailable + Jesús Orourke MD Unavailable Alfreda Rya-C Primary Care Provider + Alfreda RayC Unavailable +[phone] Katrin Orellana PA-C Unavailable +[phone]- Shanna Vang PA-C Unavailable +[phone] Fransisco Eddy MD Unavailable +[phone] Esperanza Gatica MD Unavailable + Esperanza Gatica MD Unavailable + Katrin OrellanaC Unavailable +[phone] [facility] Unavailable [phone] Alfreda Ray PA-C Unavailable +[phone] Alfreda Ray PA-C Unavailable +[phone] [facility] Unavailable +[phone] Dakota Tatum MD Unavailable Dakota Tatum MD Unavailable + [phone] Srinivas Marie DO Unavailable +[phone] Encounter Details Date Type Department Care Team (Late st Contact Info) Description 03/03/2021 MyC Medical Advice [facility] [address] [place] [phone] [place] [address] [place] [address] Social History Tobacco Use Types [...] Sex Assigned at Female 08/17/2018 7:56 AM MATERIALS COORDINATOR Legal Sex Female 4:24 AM MATERIALS COORDINATOR Gender Identity Female 08/17/2018 7:56 AM MATERIALS COORDINATOR Sexual Orientation Straight 08/17/2018 7: 56 AM MATERIALS COORDINATOR COVID-19 Exposure Response Date Recorded In the [...] 09/07/2024 10:00 AM CDT Office Visit [address] [place] [address] Frnasisco Eddy MD [address] [place] [address] 88 [place] [address] 09/18/2024 2:00 PM CDT Virtual Visit [facility] [address] [place] [address] Shanna Vang PA-C [address] [place], [place] 3[address] 03/29/2025 3:40 PM CDT Office Visit [address] [phone] Alfreda Ray PA-C [address] [place] [address] 135772 documented as of this encounter Visit Diagnoses Not on filedocumented in this encounter Additional Health Concerns Infection Onset Date Last Indicated Resolved Time Rule Out COVID-19 05/08/2021 05/08/2021 05/09/2021 9:08 PM MATERIALS COORDINATOR Assessment Noted Time PHQ-9 Depression Total Score: 0 08/31/19 21 11:22 AM MATERIALS COORDINATOR documented as of this encounter Care Teams Alternative Energy Engineer Relationship Specialty Start Date End Date Esperanza Gatica MD PCP - General Family Practice 10/13/11 12/29/21 Alfreda Ray PA-C [address] [place] [address] 937052 PCP - General Family Medicine 12/30/21 [place] [address] [place] [address] Assigned PCP 09/29/20 07/31/22 Jesú[place] [address] [address] Assigned Musculoskeletal Provider 10/20/20 04/17/22 Alfreda Ray PA-C [address] [place] [address] [phone] Referring Physician Family Medicine 12/31/21 Katrin Orellana PA-C [address] [place] [address] 354035 Physician Shopper'S Aide Dermatology 12/31/21 Shanna Vang PA-C [address] 973164 Assigned Cancer Care Provider 01/10/22 Fransisco Eddy MD [address] [place] [address] 868415 Assigned Rheumatology Provider 05/09/22 [place] [address] [place] [address] Assigned Pain Medication Provider 06/29/22 09/04/22 [place] [address] [place] [address] Assigned PCP 08/15/22 08/28/22 Katrin Orellana PA-C [address] [place] [address] 387635 Assigned Surgical Provider 08/15/22 02/10/24 [facility], [facility] [address] [facility] [place] [address] Pharmacist Pharmacist 09/07/22 Alfreda Ray PA-C [address] [place] [address] Assigned Pain Medication Provider 09/05/22 09/10/23 Alfreda Ray PA-C [address] [place] [address] 007422 Assigned PCP 08/29/22 Cristina [facility], [facility] [address] [address] Assigned MTM Pharmacist 09/26/22 Dakota Tatum MD [address] [place] [address] Cardiovascular Disease 03/25/23 Dakota Tatum MD [address] [place] [address] Assigned Heart and Vascular Provider 05/01/23 [place] [address] [address], [facility] [address] [place] [address] Assigned Musculoskeletal Provider 04/12/24 documented as of this encounter
--- OUTSIDE RECORDS SUMMARY | 2024-07-28 14:26 | XMS_ITS | Encounter Summary ---
Author Organization [facility] Address [address] [place] [address] Care Team Providers Care Insurance Risk Analyst Name Role Phone Esperanza Gatica MD Primary Care Provider + Esperanza Gatica MD Unavailable +[phone] Esperanza Gatica MD Unavailable +[phone] Esperanza Gatica MD Unavailable +[phone] Esperanza Gatica MD Unavailable +[phone] Esperanza Gatica MD Unavailable +[phone] Esperanza Gatica MD Unavailable +[phone] Jesús Orourke MD Unavailable Alfreda RayC Primary Care Provider + Alfreda Ray PA-C Unavailable + [phone] Katrin Orellana PA-C Unavailable +[phone] Shanna VangC Unavailable +[phone] Fransisco Eddy MD Unavailable +[phone] Esperanza Gatica MD Unavailable +[phone] Esperanza Gatica MD Unavailable +[phone] Katrin Orellana PA-C Unavailable Cristina Hsieh [facility] Unavailable +[phone] RayAlfreda PA-C Unavailable +[phone] Cory Alfread Liu PA-C Unavailable +[phone] Cristina Hsieh [facility] Unavailable Dakota Tatum MD Unavailable Dakota Tatum MD Unavailable [phone] Srinivas Marie DO Unavailable [phone] Reason for Visit * Reason Onset Date Comments Refill Request 12/19/2013 [place], Lisinopri l-HCTZ Encounter Details Date Type Department Care Team (Late st Contact Info) Description 12/19/2013 MyC Refill M [address], [address] [place] [address] [place] [address] [place] [address] Refill Request ([place], Lisinopril-HCTZ) Social History Tobacco Use Types Packs/Day Years Used Date Smoking Tobacco: Former Cigarettes Q uit: 06/21/1973 Smokeless Tobacco: Former Alcohol Use Standard Drinks/Week Comments Yes 0 (1 standard drink = 0.6 oz pur e alcohol) rarely Comments No Sex and Gender Information Value Date Recorded Sex Assigned at Female 08/17/2018 7:56 AM MANAGER SURGICAL Legal Sex Female 4:24 AM MANAGER SURGICAL Gender Identity Female 08/17/2018 7:56 AM MANAGER SURGICAL Sexual Orientation Straight 08/17/2018 7: 56 AM MANAGER SURGICAL documented as of this encounter Miscellaneous Notes [...] RN - 12/19/2013 10:21 AM [facility] Original authorizing provider: MD Alexandria Brannon would like a refill of the following medications: HYDROcodone-acetaminophen (NORCO) 5-325 MG per tablet [Esperanza Gatica MD] Preferred pharmacy: [facility] [address] [place] [address] Comment: Dr. Gatica is my Doctor. Medication renewals requested in this message routed to other providers: lisinopril-hydrochlorothiazide (PRINZIDE,ZESTORETIC) 10-12.5 MG per tablet [Royer Brumfield MD] documented in this encounter Plan of Treatment Upcoming Encounters Date Type Department Care Team (Late st Contact Info) Description 09/07/2024 10:00 AM CDT Office Visit [facility] [address] [place] [phone] Fransisco Eddy MD [address] [place] [address] 88 [place], [place] [phone] 09/18/2024 2:00 PM CDT Virtual Visit [facility] [place] [address] 105 [place] [phone] Shanna Vang, PAFilemonC [address] [place] [address] 302724 03/29/2025 3:40 PM CDT Office Visit [address] [phone] Alfreda Ray PA-C [address] [place] [address] documented as of this encounter Visit Diagnoses Diagnosis Osteoarthritis Osteoarthrosis, unspecified whether generalized or localized, unspecified site HTN (hypertension), benign Essential hypertension, benign documented in this encounter Additional Health Concerns Infection Onset Date Last Indicated Resolved Time Rule Out COVID-19 05/08/2021 05/08/2021 05/09/2021 9:08 PM MANAGER SURGICAL documented as of this encounter Care Teams Insurance Risk Analyst Relationship Specialty Start Date End Date Esperanza Gatica MD PCP - General Family Practice 10/13/11 12/29/21 [place] [address] [place] [address] PCP - Assigned PCP 12/05/17 08/23/18 Alfreda Ray PA-C [address] [place] [address] 050512 PCP - General Family Medicine 12/30/21 [place] [address] [place] [address] Assigned PCP 12/05/17 09/30/19 [place] [address] [place] [address] Assigned PCP 10/01/19 03/02/20 [place] [address] [place] [address] Assigned PCP 03/03/20 05/25/20 [place] [address] [place] [address] Assigned PCP 05/26/20 09/28/20 [place] [address] [address] [place] [address] Assigned PCP 09/29/20 07/31/22 [place] [address] [facility] [place] [address] Assigned Musculoskeletal Provider 10/20/20 04/17/22 Alfreda Ray PA-C [address] [place] [address] 945742 Referring Physician Family Medicine 12/31/21 Katrin Orellana PA-C [address] [place] [address] 98 [place], [place] 963435 Physician Retail Selling Floor Leader Dermatology 12/31/21 Shanna Vang PA-C [address] [place] [address] 966934 Assigned Cancer Care Provider 01/10/22 Fransisco Eddy MD [address] [place] [place] [address] 405175 Assigned Rheumatology Provider 05/09/22 [place] [address] [place] [address] Assigned Pain Medication Provider 06/29/22 09/04/22 [place] [address] [place] [address] Assigned PCP 08/15/22 08/28/22 Katrin Orellana PA-C [address] [place] [address] 98 [place], [place] 450915 Assigned Surgical Provider 08/15/22 02/10/24 Cristina Hsieh [facility] 3305 [facility] [place] [address] Pharmacist Pharmacist 09/07/22 Alfreda Ray PA-C [address] [place] [address] 568432 Assigned Pain Medication Provider 09/05/22 09/10/23 Alfreda Ray PA-C [address] [place] [address] Assigned PCP 08/29/22 Cristina Hsieh [facility] [address] [phone] Assigned MTM Pharmacist 09/26/22 Dakota Tatum MD 516 [place] [address] Cardiovascular Disease 03/25/23 Dakota Tatum MD [address] [place] [address] Assigned Heart and Vascular Provider 05/01/23 [place] [address] [address], [address] [address] Assigned Musculoskeletal Provider 04/12/24 documented as of this encounter
--- OUTSIDE RECORDS SUMMARY | 2024-07-28 14:26 | XMS_ITS | Encounter Summary ---
Author Organization [facility] Address [address] [place] [address] Care Team Providers Care Chief Telephone Operator Name Role Phone Esperanza Gatica MD Primary Care Provider + Esperanza Gatica MD Unavailable +[phone] Esperanza Gatica MD Unavailable +[phone] Esperanza Gatica MD Unavailable +[phone] Esperanza Gatica MD Unavailable +[phone] Esperanza Gatica MD Unavailable +[phone] Esperanza Gatica MD Unavailable +[phone] Jesús Orourke MD Unavailable Alfreda RayC Primary Care Provider + Alfreda Ray PA-C Unavailable + [phone] Katrin Orellana PA-C Unavailable [phone] Shanna VangC Unavailable +[phone] Fransisco Eddy MD Unavailable [phone] Esperanza Gatica MD Unavailable +[phone] Esperanza Gatica MD Unavailable +[phone] Katrin Orellana PA-C Unavailable Crist[facility] Unavailable Cory Alfreda Liu PA-C Unavailable Alfreda Ray Alexa KING Unavailable [phone] [facility] Unavailable Dakota Tatum MD Unavailable Dakota Tatum MD Unavailable Srinivas Marie DO Unavailable [phone] Reason for Visit * Reason Onset Date Comments Refill Request 03/03/2014 Encounter Details Date Type Department Care Team (Late st Contact Info) Description 03/03/2014 MyC Refill [address], [address] [place] [address] [place] [address] [place] [address] Refill Request Social History Tobacco Use Types Packs/Day Years Used Date Smoking Tobacco: Former Cigarettes Q uit: 06/21/1973 Smokeless Tobacco: Former Alcohol Use Standard Drinks/Week Comments Yes 0 (1 standard drink = 0.6 oz pur e alcohol) rarely Comments No Sex and Gender Information Value Date Recorded Sex Assigned at Female 08/17/2018 7:56 AM LEAD BURNER HELPER Legal Sex Female 4:24 AM LEAD BURNER HELPER Gender Identity Female 08/17/2018 7:56 AM LEAD BURNER HELPER Sexual Orientation Straight 08/17/2018 7: 56 AM LEAD BURNER HELPER documented as of this encounter Plan of Treatment Upcoming Encounters Date Type Department Care Team (Late st Contact Info) Description 09/07/2024 10:00 AM CDT Office Visit [facility] [address] [address] Fransisco Eddy MD [address] [place] [address] 09/18/2024 2:00 PM CDT Virtual Visit [facility] [address] [place] [address] Shanna Vang PA-C [address] [place] [address] 03/29/2025 3:40 PM CDT Office Visit [address] [place] [address] Alfreda Ray PA-C [address] [place] [address] 941002 documented as of this encounter Visit Diagnoses Not on filedocumented in this encounter Additional Health Concerns Infection Onset Date Last Indicated Resolved Time Rule Out COVID-19 05/08/2021 05/08/2021 05/09/2021 9:08 PM LEAD BURNER HELPER documented as of this encounter Care Teams Chief Telephone Operator Relationship Specialty Start Date End Date Esperanza Gatica MD PCP - General Family Practice 10/13/11 12/29/21 [place] [address] [place] [address] PCP - Assigned PCP 12/05/17 08/23/18 Alfreda Ray PA-C [address] [place] [address]69 PCP - General Family Medicine 12/30/21 [place] [address] [place] [address] Assigned PCP 12/05/17 09/30/19 [place] [address] [place] [address] Assigned PCP 10/01/19 03/02/20 [place] [address] [place] [address] Assigned PCP 03/03/20 05/25/20 [place] [address] [place] [address] Assigned PCP 05/26/20 09/28/20 [place] [address] [place] [address] Assigned PCP 09/29/20 07/31/22 [place] [address] [facility] [place] [address] Assigned Musculoskeletal Provider 10/20/20 04/17/22 Alfreda Ray PA-C [address] [place] [address] 083312 Referring Physician Family Medicine 12/31/21 Katrin Orellana PA-C [address] [place] [address] 98 [place], [place] 081825 Physician Vegetable Harvest Machine Operator Dermatology 12/31/21 Shanna Vang PA-C [address] [place] [address] 677774 Assigned Cancer Care Provider 01/10/22 Fransisco Eddy MD [address] [place] [address] 88 [place] [address] Assigned Rheumatology Provider 05/09/22 [place] [address] [place] [address] Assigned Pain Medication Provider 06/29/22 09/04/22 [place] [address] [place] [address] Assigned PCP 08/15/22 08/28/22 Katrin Orellana PA-C [address] [place] [address] Assigned Surgical Provider 08/15/22 02/10/24 [facility] 3305 [facility] [place]Z [address] Pharmacist Pharmacist 09/07/22 Alfreda Ray PA-C [address] [place] [address] Assigned Pain Medication Provider 09/05/22 09/10/23 Alfreda Ray PA-C [address] [place] [address] Assigned PCP 08/29/22 [facility] [address] [id number] Assigned MTM Pharmacist 09/26/22 Dakota Tatum MD 6 [place] [address] Cardiovascular Disease 03/25/23 Dakota Tatum MD [address] [place] [address] 262595 Assigned Heart and Vascular Provider 05/01/23 [place] [address] [address], [address] 062607 Assigned Musculoskeletal Provider 04/12/24 documented as of this encounter
--- OUTSIDE RECORDS SUMMARY | 2024-07-28 14:26 | XMS_ITS | Encounter Summary ---
Author Organization [facility] Address [address] [place] [address]67 Care Team Providers Care Certified Legal Investigator Name Role Phone Esperanza Gatica MD Primary Care Provider + Esperanza Gatica MD Unavailable +[phone] Esperanza Gatica MD Unavailable +[phone] Esperanza Gatica MD Unavailable +348 Esperanza Gatica MD Unavailable +706 Esperanza Gatica MD Unavailable +575 Esperanza Gatica MD Unavailable +[phone] Jesús Orourke MD Unavailable Alfreda RayC Primary Care Provider + Alfreda Ray PA-C Unavailable + [phone] Katrin Orellana PA-C Unavailable +[phone] Shanna VangC Unavailable +[phone] Fransisco Eddy MD Unavailable [phone] Esperanza Gatica MD Unavailable +[phone] Esperanza Gatica MD Unavailable +[phone] Katrin Orellana PA-C Unavailable Cristina Hsieh [facility] Unavailable Cory Alfreda Liu PA-C Unavailable +[phone] Ho Raymustapha Liu PA-C Unavailable +[phone] Cristina Hsieh [facility] Unavailable Dakota Tatum MD Unavailable Dakota Tatum MD Unavailable [phone] Srinivas Marie DO Unavailable [phone] Reason for Visit * Reason Onset Date Comments Refill Request 10/13/2013 Atenolol 25mg Encounter Details Date Type Department Care Team (Late st Contact Info) Description 10/13/2013 MyC Refill [address], [address] [place] [address] [place] [address] [place] [address] Refill Request (Atenolol 25mg) Social History Tobacco Use Types Packs/Day Years Used Date Smoking Tobacco: Former Cigarettes Q uit: 06/21/1973 Smokeless Tobacco: Former Alcohol Use Standard Drinks/Week Comments Yes 0 (1 standard drink = 0.6 oz pur e alcohol) rarely Comments No Sex and Gender Information Value Date Recorded Sex Assigned at Female 08/17/2018 7:56 AM GLASS ARTIST Legal Sex Female 4:24 AM GLASS ARTIST Gender Identity Female 08/17/2018 7:56 AM GLASS ARTIST Sexual Orientation Straight 08/17/2018 7: 56 AM GLASS ARTIST documented as of this encounter Miscellaneous Notes * Telephone Encounter - Leigha Rinaldi RN - 10/16/2013 11:17 AM CDT Last Office Visit R/T Diagnosis: 07/14/2013 BP Readings from Last 3 Encounters: 07/14/13 122/60 11/08/12 112/60 06/23/12 104/60 Medication approved per standing orders. Leigha Rinaldi RN * Telephone Encounter - Leigha Rinaldi RN - 10/16/2013 11:16 AM CDTMessage from [facility]: Original authorizing provider: MD Alexandria Brannon would like a refill of the following medications: atenolol (TENORMIN) 25 MG tablet [Esperanza Gatica MD] Preferred pharmacy: [facility] [id number] Comment: I asked for a refill [...] Office Visit [facility] [address] [place] [address] Fransisco Eddy MD [address] [place] [address] 88 [place] [address] 09/18/2024 2:00 PM CDT Virtual Visit [facility] [address] 105 [place] [address] Shanna Vang PA-C [address] [id number] 03/29/2025 3:40 PM CDT Office Visit [address] [phone] Alfreda Ray PA-C [address] [place] [address] 378462 documented as of this encounter Visit Diagnoses Diagnosis HTN (hypertension), benign Essential hypertension, benign documented in this encounter Additional Health Concerns Infection Onset Date Last Indicated Resolved Time Rule Out COVID-19 05/08/2021 05/08/2021 05/09/2021 9:08 PM GLASS ARTIST documented as of this encounter Care Teams Certified Legal Investigator Relationship Specialty Start Date End Date Esperanza Gatica MD PCP - General Family Practice 10/13/11 12/29/21 [place] [address] [place] GARCIA [address] PCP - Assigned PCP 12/05/17 08/23/18 Alfreda Ray PA-C [address] [place] [address] PCP - General Family Medicine 12/30/21 [place] [address] [place] [place]ARCIA [address] Assigned PCP 12/05/17 09/30/19 [place] [address] [place] GARCIA [address] Assigned PCP 10/01/19 03/02/20 [place] [address] [place] GARCIA [address] Assigned PCP 03/03/20 05/25/20 [place] [address] [place] GARCIA [address] Assigned PCP 05/26/20 09/28/20 [place] [address] [place] [address] Assigned PCP 09/29/20 07/31/22 [place] [address] [place] [address] [address] Assigned Musculoskeletal Provider 10/20/20 04/17/22 Alfreda Ray PA-C [address] [place] [address] Referring Physician Family Medicine 12/31/21 Katrin Orellana PA-C [address] [place] [address] Physician Oil Pipe Inspector Helper Dermatology 12/31/21 Shanna Vang PA-C [address] [address] Assigned Cancer Care Provider 01/10/22 Fransisco Eddy MD [address] [place] [address] Assigned Rheumatology Provider 05/09/22 [place] [address] [place] [address] Assigned Pain Medication Provider 06/29/22 09/04/22 [place] [address] [place] [address] Assigned PCP 08/15/22 08/28/22 Katrin Orellana PA-C [address] [place] [address] Assigned Surgical Provider 08/15/22 02/10/24 Cristina Hsieh [facility] [address] [facility] [place]BETH [place]NANDEZ [address] Pharmacist Pharmacist 09/07/22 Alfreda Ray PA-C [address] [place] [address] 101552 Assigned Pain Medication Provider 09/05/22 09/10/23 Alfreda Ray PA-C [address] [place] [address] 053202 Assigned PCP 08/29/22 Cristina Hsieh [facility] [address] [place] [address] Assigned MTM Pharmacist 09/26/22 Dakota Tatum MD [address] [place] [address] Cardiovascular Disease 03/25/23 Dakota Tatum MD [address] [place] [address] Assigned Heart and Vascular Provider 05/01/23 [place] [address] [place] [address] [address] Assigned Musculoskeletal Provider 04/12/24 documented as of this encounter
--- OUTSIDE RECORDS SUMMARY | 2024-07-28 14:26 | XMS_ITS | Encounter Summary ---
Author Organization [facility] Address [address] [place] [address] Care Team Providers Care Manager Urgent Care Name Role Phone Esperanza Gatica MD Primary Care Provider + Esperanza Gatica MD Unavailable +[phone] Esperanza Gatica MD Unavailable +[phone] Esperanza Gatica MD Unavailable +702 Esperanza Gatica MD Unavailable +[phone] Esperanza Gatica MD Unavailable +[phone] Esperanza Gatica MD Unavailable +[phone] Jesús Orourke MD Unavailable Alfreda RayC Primary Care Provider + Alfreda Ray PA-C Unavailable + [phone] Katrin Orellana PA-C Unavailable +[phone] Shanna VangC Unavailable +[phone] Fransisco Eddy MD Unavailable +[phone] Esperanza Gatica MD Unavailable +[phone] Esperanza Gatica MD Unavailable +[phone] Katrin Orellana PA-C Unavailable Cristina Hsieh [facility] Unavailable Cory Alfreda Liu PA-C Unavailable +[phone] Ho Raymustapha Liu PA-C Unavailable +[phone] Cristina Hsieh [facility] Unavailable +[phone] Dakota Tatum MD Unavailable Dakota Tatum MD Unavailable [phone] Srinivas Marie DO Unavailable +[phone] Reason for Visit * Reason Onset Date Comments Refill Request 11/08/2013 Tramadol 50mg Encounter Details Date Type Department Care Team (Late st Contact Info) Description 11/08/2013 MyC Refill [address], [facility] [address] [place] [address] [place] [address] [place] [address] Refill Request (Tramadol 50mg) Social History Tobacco Use Types Packs/Day Years Used Date Smoking Tobacco: Former Cigarettes Q uit: 06/21/1973 Smokeless Tobacco: Former Alcohol Use Standard Drinks/Week Comments Yes 0 (1 standard drink = 0.6 oz pur e alcohol) rarely Comments No Sex and Gender Information Value Date Recorded Sex Assigned at Female 08/17/2018 7:56 AM LEAD DIE MOLDER Legal Sex Female 4:24 AM LEAD DIE MOLDER Gender Identity Female 08/17/2018 7:56 AM LEAD DIE MOLDER Sexual Orientation Straight 08/17/2018 7: 56 AM LEAD DIE MOLDER documented as of this encounter Miscellaneous Notes [...] MG tablet [Esperanza Gatica MD] Preferred pharmacy: [id number] - [address] Comment: documented in this encounter Plan of Treatment Upcoming Encounters Date Type Department Care Team (Late st Contact Info) Description 09/07/2024 10:00 AM CDT Office Visit [facility] [address] 200 [place] [phone] Fransisco Eddy MD [address] [place] [place] [address] 88 [place] [address] 09/18/2024 2:00 PM CDT Virtual Visit [facility] [address] [place] [address] 105 [place] [address] Shanna Vang, PAFilemonC [address] [place] [address] 298394 03/29/2025 3:40 PM CDT Office Visit [address] [phone] Alfreda Ray PA-C [address] [place] [address] 645082 documented as of this encounter Visit Diagnoses Diagnosis HTN (hypertension), benign Essential hypertension, benign documented in this encounter Additional Health Concerns Infection Onset Date Last Indicated Resolved Time Rule Out COVID-19 05/08/2021 05/08/2021 05/09/2021 9:08 PM LEAD DIE MOLDER documented as of this encounter Care Teams Manager Urgent Care Relationship Specialty Start Date End Date Esperanza Gatica MD PCP - General Family Practice 10/13/11 12/29/21 [place] [address] [place] [address] PCP - Assigned PCP 12/05/17 08/23/18 Alfreda Ray PA-C [address] [place] [address] PCP - General Family Medicine 12/30/21 [place] [address] [place] [address] Assigned PCP 12/05/17 09/30/19 [place] [address] [place] [address] Assigned PCP 10/01/19 03/02/20 [place] [address] [place] [address] Assigned PCP 03/03/20 05/25/20 [place] [address] [place] [address] Assigned PCP 05/26/20 09/28/20 [place] [address] [place] [address] Assigned PCP 09/29/20 07/31/22 Jesú[place] [address] [facility] [address] [place] [address] Assigned Musculoskeletal Provider 10/20/20 04/17/22 Alfreda Ray PA-C [address] [place] [address] Referring Physician Family Medicine 12/31/21 Katrin Orellana PA-C [address] [place] [address] 866365 Physician Art Appraiser Dermatology 12/31/21 Shanna Vang PA-C [address] 455374 Assigned Cancer Care Provider 01/10/22 Fransisco Eddy MD [address] [place] [address] 243185 Assigned Rheumatology Provider 05/09/22 [place] [address] [place] [address] Assigned Pain Medication Provider 06/29/22 09/04/22 [place] [address] [place] [address] Assigned PCP 08/15/22 08/28/22 Katrin Orellana PA-C [address] [place] [address] Assigned Surgical Provider 08/15/22 02/10/24 Cristina Hsieh [facility] 3[address] [facility] [place] [address] Pharmacist Pharmacist 09/07/22 Alfreda Ray PA-C [address] [place] [address] 355182 Assigned Pain Medication Provider 09/05/22 09/10/23 Alfreda Ray PA-C [address] [place] [address] 371262 Assigned PCP 08/29/22 Cristina Hsieh [facility] [address] [address] Assigned MTM Pharmacist 09/26/22 Dakota Tatum MD [address] [place] [address] Cardiovascular Disease 03/25/23 Dakota Tatum MD [address] [place] [address] Assigned Heart and Vascular Provider 05/01/23 [place] [address] [address] , [facility] [address] [place] [address] Assigned Musculoskeletal Provider 04/12/24 documented as of this encounter
--- OUTSIDE RECORDS SUMMARY | 2024-07-28 14:26 | XMS_ITS | Encounter Summary ---
Author Organization [facility] Address [address] [place] [address] Care Team Providers Care Ribbon Weaver Name Role Phone Esperanza Gatica MD Primary Care Provider + Esperanza Gatica MD Unavailable +[phone] Esperanza Gatica MD Unavailable +[phone] Esperanza Gatica MD Unavailable +[phone] Esperanza Gatica MD Unavailable +[phone] Esperanza Gatica MD Unavailable +[phone] Esperanza Gatica MD Unavailable +[phone] Jesús Orourke MD Unavailable Alfreda RayC Primary Care Provider + Alfreda Ray PA-C Unavailable + [phone] Katrin Orellana PA-C Unavailable [phone] Shanna VangC Unavailable +[phone] Fransisco Eddy MD Unavailable +[phone] Esperanza Gatica MD Unavailable +[phone] Esperanza Gatica MD Unavailable +[phone] Katrin Orellana PA-C Unavailable Cristina Hsieh [facility] Unavailable RayAlfreda PA-C Unavailable [phone] Cory Alfreda Liu PA-C Unavailable +[phone] Cristina Hsieh [facility] Unavailable +[phone] Dakota Tatum MD Unavailable Dakota Tatum MD Unavailable [phone] Srinivas Marie DO Unavailable [phone] Reason for Visit * Reason Onset Date Comments Refill Request 09/23/2013 Lisinopril-HCTZ Encounter Details Date Type Department Care Team (Late st Contact Info) Description 09/23/2013 MyC Kieran [address], [address] [place] [address] [place] [address] [place] [address] Refill Request (Lisinopril-HCTZ) Social History Tobacco Use Types Packs/Day Years Used Date Smoking Tobacco: Former Cigarettes Q uit: 06/21/1973 Smokeless Tobacco: Former Alcohol Use Standard Drinks/Week Comments Yes 0 (1 standard drink = 0.6 oz pur e alcohol) rarely Comments No Sex and Gender Information Value Date Recorded Sex Assigned at Female 08/17/2018 7:56 AM GEAR HOBBER Legal Sex Female 4:24 AM GEAR HOBBER Gender Identity Female 08/17/2018 7:56 AM GEAR HOBBER Sexual Orientation Straight 08/17/2018 7: 56 AM GEAR HOBBER documented as of this encounter Miscellaneous Notes [...] RN - 09/25/2013 7:51 AM CD[facility] Original authorizing provider: MD Alexandria Triplett would like a refill of the following medications: lisinopril-hydrochlorothiazide (PRINZIDE,ZESTORETIC) 10-12.5 MG per tablet [Royer Brumfield MD] Preferred pharmacy: [id number] Comment: Sent from my iPad documented in this encounter Plan of Treatment Upcoming Encounters Date Type Department Care Team (Late st Contact Info) Description 09/07/2024 10:00 AM CDT Office Visit [facility] [address] 200 [place] [address] Fransisco Eddy MD [address] [place] [address] 138285 09/18/2024 2:00 PM CDT Virtual Visit [facility] [address] 105 [place] [address] Shanna Vang PA-C [address] [address] 03/29/2025 3:40 PM CDT Office Visit [facility] [address] [place] [address] [place] [address] Alfreda Ray PA-C [address] [place] [address] 566352 documented as of this encounter Visit Diagnoses Diagnosis HTN (hypertension), benign- Primary Essential hypertension, benign documented in this encounter Additional Health Concerns Infection Onset Date Last Indicated Resolved Time Rule Out COVID-19 05/08/2021 05/08/2021 05/09/2021 9:08 PM GEAR HOBBER documented as of this encounter Care Teams Ribbon Weaver Relationship Specialty Start Date End Date Esperanza Gatica MD PCP - General Family Practice 10/13/11 12/29/21 [place] [address] [place] [address] PCP - Assigned PCP 12/05/17 08/23/18 Alfreda Ray PA-C [address] [place] [address] PCP - General Family Medicine 12/30/21 [place] [address] [place] [address] Assigned PCP 12/05/17 09/30/19 [place] [address] [place] [address] Assigned PCP 10/01/19 03/02/20 [place] [address] [place] [address] Assigned PCP 03/03/20 05/25/20 [place] [address] [place] [address] Assigned PCP 05/26/20 09/28/20 [place] [address] [place] [address] Assigned PCP 09/29/20 07/31/22 Jesú[place] [address] [place] [address] Assigned Musculoskeletal Provider 10/20/20 04/17/22 Alfreda Ray PA-C [address] [place] [address] 142682 Referring Physician Family Medicine 12/31/21 Katrin Orellana PA-C [address] [place] [address] 98 [place], [place] [phone] Physician Aircraft Engine Mechanic Overhaul Dermatology 12/31/21 Shanna Vang PA-C [address] [id number] Assigned Cancer Care Provider 01/10/22 Fransisco Eddy MD [address] [place] [address] 477775 Assigned Rheumatology Provider 05/09/22 [place] [address] [place] [address] Assigned Pain Medication Provider 06/29/22 09/04/22 [place] [address] [place] [address] Assigned PCP 08/15/22 08/28/22 Katrin Orellana PA-C [address] [place] [address] 956005 Assigned Surgical Provider 08/15/22 02/10/24 Cristina Hsieh [facility] [address] [facility] [place] [address] Pharmacist Pharmacist 09/07/22 Alfreda Ray PA-C [address] [place] [address] 541872 Assigned Pain Medication Provider 09/05/22 09/10/23 Alfreda Ray PA-C [address] [place] [address] 351802 Assigned PCP 08/29/22 Cristina Hsieh [facility] [address] [place] [address] Assigned MTM Pharmacist 09/26/22 Dakota Tatum MD [address] [place] [address] Cardiovascular Disease 03/25/23 Dakota Tatum MD [address] [place] [address] Assigned Heart and Vascular Provider 05/01/23 [place] [address] [address] Assigned Musculoskeletal Provider 04/12/24 documented as of this encounter
--- OUTSIDE RECORDS SUMMARY | 2024-07-28 14:26 | XMS_ITS | Encounter Summary ---
Author Organization [facility] Address [address] [place] [address] Care Team Providers Care Parking Cashier Name Role Phone Alfreda Ray PA-C Primary Care Provider + Alfreda Ray PA-C Unavailable [phone] Katrin Orellana PA-C Unavailable [phone] Shanna Vang PA-C Unavailable +[phone] Frnasisco Eddy MD Unavailable [phone] Katrin Orellana PA-C Unavailable [phone] Cristina Hsieh [facility] Unavailable [phone] Alfreda Ray PA-C Unavailable + [phone] Alfreda Ray PA-C Unavailable + [phone] Cristina Hsieh [facility] Unavailable [phone] Dakota Tatum MD Unavailable + [phone] Dakota Tatum MD Unavailable + [phone] Srinivas Marie DO Unavailable [phone] Encounter Details Date Type Department Care Team (Late st Contact Info) Description 08/11/2023 MyC Medical Advice [facility] [address] [place] [address] Gruendemann, Lecora Social History Tobacco Use [...] Sex Assigned at Female 08/17/2018 7:56 AM SERGING MACHINE OPERATOR Legal Sex Female 4:24 AM SERGING MACHINE OPERATOR Gender Identity Female 08/17/2018 7:56 AM SERGING MACHINE OPERATOR Sexual Orientation Straight 08/17/2018 7: 56 AM SERGING MACHINE OPERATOR documented as of this encounter Plan of Treatment Upcoming Encounters Date Type Department Care Team (Late st Contact Info) Description 09/07/2024 10:00 AM CDT Office Visit [facility]25 [facility] 200 [place] [phone] Fransisco Eddy MD [address] [place] [address] 88 [place] [address] 09/18/2024 2:00 PM CDT Virtual Visit [facility] [address] [place] [address] 105 [place] [phone] Shanna Vang PA-C [address] [place] [address] 03/29/2025 3:40 PM CDT Office Visit [address] [address] Alfreda Ray PA-C [address] [place] [address] 445492 documented as of this encounter Visit Diagnoses Not on filedocumented in this encounter Additional Health Concerns Assessment Noted Time PHQ-9 Depression Total Score: 5 03/09/20 23 10:57 AM CDT documented as of this encounter Care Teams Parking Cashier Relationship Specialty Start Date End Date Alfreda Ray PA-C [address] [place] [address] PCP - General Family Medicine 12/30/21 Alfreda Ray PA-C [address] [place] [address] Referring Physician Family Medicine 12/31/21 Katrin Orellana PA-C 420 [facility] 98 [place], [place] 734645 Physician Equity Trader Dermatology 12/31/21 Shanna Vang PA-C [address] [place], [place] [address] Assigned Cancer Care Provider 01/10/22 Fransisco Eddy MD 515 [facility] 88 [place], [place] 584465 Assigned Rheumatology Provider 05/09/22 Katrin Orellana PA-C 420 [facility] 98 [place], [place] 019105 Assigned Surgical Provider 08/15/22 02/10/24 Cristina Hsieh [facility] [address] [facility] [place] [address] Pharmacist Pharmacist 09/07/22 Alfreda Ray PA-C [address] [place] [address] 194502 Assigned Pain Medication Provider 09/05/22 09/10/23 Alfreda Ray PA-C [address] [place] [address] 880172 Assigned PCP 08/29/22 Cristina Hsieh [facility] [address] [address] Assigned MTM Pharmacist 09/26/22 Dakota Tatum MD 516 [place] [address] Cardiovascular Disease 03/25/23 Dakota Tatum MD 516 [place] [address] Assigned Heart and Vascular Provider 05/01/23 [place] [address] [facility], [address] [address] Assigned Musculoskeletal Provider 04/12/24 documented as of this encounter
--- OUTSIDE RECORDS SUMMARY | 2024-07-28 14:26 | XMS_ITS | Encounter Summary ---
Author Organization [place] Address [address] [place] [address] Care Team Providers Care Automatic Engraver Name Role Phone Esperanza Gatica MD Primary Care Provider + Esperanza Gatica MD Unavailable +[phone] Esperanza Gatica MD Unavailable +[phone] Esperanza Gatica MD Unavailable +[phone] Esperanza Gatica MD Unavailable +558 Esperanza Gatica MD Unavailable +[phone] Esperanza Gatica MD Unavailable +[phone] Jesús Orourke MD Unavailable Alfreda RayC Primary Care Provider + Alfreda Ray PA-C Unavailable + [phone] Katrin Orellana PA-C Unavailable +[phone] Shanna VangC Unavailable +[phone] Fransisco Eddy MD Unavailable +[phone] Esperanza Gatica MD Unavailable +[phone] Esperanza Gatica MD Unavailable +[phone] Katrin Orellana PA-C Unavailable Cristina Hsieh [facility] Unavailable Cory Alfreda Liu PA-C Unavailable +[phone] Alfreda Ray Alexa KING Unavailable +[phone] Cristina Hsieh [facility] Unavailable Dakota Tatum MD Unavailable Dakota Tatum MD Unavailable [phone] Srinivas Marie DO Unavailable [phone] Reason for Visit * Reason Onset Date Comments Refill Request 04/07/2014 Encounter Details Date Type Department Care Team (Late st Contact Info) Description 04/07/2014 MyC Refill [address], [address] [place] [address] [place] [address] [place] [address] Refill Request Social History Tobacco Use Types Packs/Day Years Used Date Smoking Tobacco: Former Cigarettes Q uit: 06/21/1973 Smokeless Tobacco: Former Alcohol Use Standard Drinks/Week Comments Yes 0 (1 standard drink = 0.6 oz pur e alcohol) rarely Comments No Sex and Gender Information Value Date Recorded Sex Assigned at Female 08/17/2018 7:56 AM SATURATOR Legal Sex Female 4:24 AM SATURATOR Gender Identity Female 08/17/2018 7:56 AM SATURATOR Sexual Orientation Straight 08/17/2018 7: 56 AM SATURATOR documented as of this encounter Miscellaneous Notes * Telephone Encounter - Fartun Mayes RN - 04/09/2014 9:20 AM CDT MyChart refill request for tramadol. Last OV 03/29/14. Last filled 03/05/14, qty 30. Unable to refillper SO protocol, to for auth. * Telephone Encounter - Fartun Mayes RN - 04/09/2014 9:17 AM [facility] Original authorizing provider: MD Alexandria Brannon would like a refill of the following medications: traMADol (ULTRAM) 50 MG tablet [Esperazna Gatica MD] Preferred pharmacy: [id number] - [address] Comment: documented in this encounter Plan of Treatment Upcoming Encounters Date Type Department Care Team (Late st Contact Info) Description 09/07/2024 10:00 AM CDT Office Visit [facility] [address] 200 [place] [address] Fransisco Eddy MD [address] [place] [address] 88 [place] [address] 09/18/2024 2:00 PM CDT Virtual Visit [facility] [address] [place] [address] 105 [place] [address] Shanna Vang, PARobinson [address] [place] [address] 03/29/2025 3:40 PM CDT Office Visit [address] [place] [phone] Alfreda Ray PA-C [address] [place] [address] 786632 documented as of this encounter Visit Diagnoses Diagnosis HTN (hypertension), benign Essential hypertension, benign documented in this encounter Additional Health Concerns Infection Onset Date Last Indicated Resolved Time Rule Out COVID-19 05/08/2021 05/08/2021 05/09/2021 9:08 PM SATURATOR documented as of this encounter Care Teams Automatic Engraver Relationship Specialty Start Date End Date Esperanza Gatica MD PCP - General Family Practice 10/13/11 12/29/21 [place] [address] [place] [address] PCP - Assigned PCP 12/05/17 08/23/18 Alfreda Ray PA-C [address] [place] [address], [place] [address] PCP - General Family Medicine 12/30/21 [place] [address] [place] [address] Assigned PCP 12/05/17 09/30/19 [place] [address] [place] [address] Assigned PCP 10/01/19 03/02/20 [place] [address] [place] [address] Assigned PCP 03/03/20 05/25/20 [place] [address] [place] [address] Assigned PCP 05/26/20 09/28/20 [place] [address] [place] [address] Assigned PCP 09/29/20 07/31/22 Jesú[place] [address] [place] [address] Assigned Musculoskeletal Provider 10/20/20 04/17/22 Alfreda Ray PA-C [address] [place] [address] 859832 Referring Physician Family Medicine 12/31/21 Katrin Orellana PA-C [address] [place] [address] 321715 Physician Process Mechanic Dermatology 12/31/21 Shanna Vang PA-C [address] 157884 Assigned Cancer Care Provider 01/10/22 Fransisco Eddy MD [address] [place] [address] 738245 Assigned Rheumatology Provider 05/09/22 [place] [address] [place] [address] Assigned Pain Medication Provider 06/29/22 09/04/22 [place] [address] [address] [address] Assigned PCP 08/15/22 08/28/22 Katrin Orellana PA-C [address] [place] [address] 398465 Assigned Surgical Provider 08/15/22 02/10/24 Cristina Hsieh, [facility] 3[address] [facility] [place] [address] Pharmacist Pharmacist 09/07/22 Alfreda Ray PA-C [address] [place] [address] 825512 Assigned Pain Medication Provider 09/05/22 09/10/23 Alfreda Ray PA-C [address] [place] [address] 980002 Assigned PCP 08/29/22 Cristina Hsieh, [facility] [address] [address] Assigned MTM Pharmacist 09/26/22 Dakota Tatum MD [address] [place] [address] Cardiovascular Disease 03/25/23 Dakota Tatum MD [address] [place] [address] Assigned Heart and Vascular Provider 05/01/23 [place] [address] [place] [place], [address] [address] Assigned Musculoskeletal Provider 04/12/24 documented as of this encounter
--- OUTSIDE RECORDS SUMMARY | 2024-07-28 14:26 | XMS_ITS | Encounter Summary ---
Author Organization [facility] Address [address] [place] [address] Care Team Providers Care Real Estate Agency Licensee Name Role Phone Esperanza Gatica MD Primary Care Provider + Esperanza Gatica MD Unavailable + Jesús Orourke MD Unavailable Alfreda Ray-C Primary Care Provider + Alfreda RayC Unavailable +[phone] Katrin Orellana PA-C Unavailable +[phone] Shanna Vang PA-C Unavailable +[phone] Fransisco Eddy MD Unavailable +[phone] Esperanza Gatica MD Unavailable + Esperanza Gatica MD Unavailable + Katrin OrellanaC Unavailable +[phone] Cristina Hsieh [facility] Unavailable +[phone] Alfreda Ray PA-C Unavailable +[phone] Alfreda Ray PA-C Unavailable +[phone] Cristina Hsieh [facility] Unavailable +[phone] Dakota Tatum MD Unavailable Dakota Tatum MD Unavailable +[phone] Srinivas Marie Unavailable [phone] Encounter Details Date Type Department Care Team (Late Contact Info) Description 04/09/2021 MyC Medical Advice [facility] [address] [place] [address] [place] [address] [place] [address] Social History Tobacco Use Types [...] Assigned at Female 08/17/2018 7:56 AM NIGHT CUSTODIAN Legal Sex Female 4:24 AM NIGHT CUSTODIAN Gender Identity Female 08/17/2018 7:56 AM NIGHT CUSTODIAN Sexual Orientation Straight 08/17/2018 7: 56 AM NIGHT CUSTODIAN COVID-19 Exposure Response Date Recorded In the last month, have you been in contact with someone who was confirmed or suspected to have Coronavirus / COVID-19? No / Unsure 04/02/2021 10:04 AM CDT documented as of this encounter Plan of Treatment Upcoming Encounters Date Type Department Care Team (Late Contact Info) Description 09/07/2024 10:00 AM CDT Office Visit [facility] [place] 6525 [facility] [address] [place] [address] Fransisco Eddy MD [address] [place] [address] 88 [place] [address] 09/18/2024 2:00 PM CDT Virtual Visit [facility] [address] [place] [address] Shanna Vang PA-C [address] [place] [address] 03/29/2025 3:40 PM CDT Office Visit [address] [address] Alfreda Ray PA-C [address] [place] [address] 128722 documented as of this encounter Visit Diagnoses Not on filedocumented in this encounter Additional Health Concerns Infection Onset Date Last Indicated Resolved Time Rule Out COVID-19 05/08/2021 05/08/2021 05/09/2021 9:08 PM NIGHT CUSTODIAN Assessment Noted Time PHQ-9 Depression Total Score: 0 08/31/19 21 11:22 AM NIGHT CUSTODIAN documented as of this encounter Care Teams Real Estate Agency Licensee Relationship Specialty Start Date End Date Esperanza Gatica MD PCP - General Family Practice 10/13/11 12/29/21 Alfreda Ray PA-C [address] [place] [address] PCP - General Family Medicine 12/30/21 [place] [address] [place] [address] Assigned PCP 09/29/20 07/31/22 Jesú[place] [address] [place] [address] Assigned Musculoskeletal Provider 10/20/20 04/17/22 Alfreda Ray PA-C [address] [place] [address] Referring Physician Family Medicine 12/31/21 Katrin Orellana PA-C [address] [place] [address] Physician Building Drafting Officer Dermatology 12/31/21 Shanna Vang PA-C [address] [address] Assigned Cancer Care Provider 01/10/22 Fransisco Eddy MD [address] [place] [address] Assigned Rheumatology Provider 05/09/22 [place] [address] [place] [address] Assigned Pain Medication Provider 06/29/22 09/04/22 [place] [address] [place] [address] Assigned PCP 08/15/22 08/28/22 Katrin Orellana PA-C [address] [place] [address] Assigned Surgical Provider 08/15/22 02/10/24 Critsina Hsieh [facility] [address] [facility] LISBETH HERNANDEZ [address] Pharmacist Pharmacist 09/07/22 Alfreda Ray PA-C [address] [place] [address] Assigned Pain Medication Provider 09/05/22 09/10/23 Alfreda Ray PA-C [address] [place] [address] Assigned PCP 08/29/22 Cristina Hsieh, [facility] [address] [place] [address] 16516 Assigned MTM Pharmacist 09/26/22 Dakota Tatum MD [address] [place] [address] Cardiovascular Disease 03/25/23 Dakota Tatum MD [address] [place] [address] Assigned Heart and Vascular Provider 05/01/23 [place] [address] [address], [address] [address] Assigned Musculoskeletal Provider 04/12/24 documented as of this encounter
--- OUTSIDE RECORDS SUMMARY | 2024-07-28 14:26 | XMS_ITS | Encounter Summary ---
Author Organization [facility] Address [address] [place] [address] Care Team Providers Care Bridge Teacher Name Role Phone Esperanza Gatica MD Primary Care Provider + Esperanza Gatica MD Unavailable +[phone] Esperanza Gatica MD Unavailable +[phone] Esperanza Gatica MD Unavailable +[phone] Esperanza Gatica MD Unavailable +[phone] Esperanza Gatica MD Unavailable +201 Esperanza Gatica MD Unavailable +[phone] Jesús Orourke MD Unavailable Alfreda RayC Primary Care Provider + Alfreda Ray PA-C Unavailable + [phone] Katrin Orellana PA-C Unavailable +[phone] Shanna VangC Unavailable +[phone] Fransisco Eddy MD Unavailable +[phone] Esperanza Gatica MD Unavailable +[phone] Esperanza Gatica MD Unavailable +[phone] Katrin Orellana PA-C Unavailable Cristina Hsieh [facility] Unavailable Cory Alfreda Liu PA-C Unavailable [phone] Ho Raymustapha Liu PA-C Unavailable [phone] Cristina Hsieh [facility] Unavailable Dakota Tatum MD Unavailable Dakota Tatum MD Unavailable Sriniavs Marie DO Unavailable [phone] Reason for Visit * Reason Onset Date Comments Formulary Issue 11/13/2014 Zolpidem 5mg Encounter Details Date Type Department Care Team (Late st Contact Info) Description 11/13/2014 MyC Medical Advice [place] 636325 [facility] 100 [place] [address] [place] [address] [place] [address] Formulary Issue (Zolpidem 5mg) Social [...] Sex Assigned at Female 08/17/2018 7:56 AM HEARING AND SPEECH ASSISTANT Legal Sex Female 4:24 AM HEARING AND SPEECH ASSISTANT Gender Identity Female 08/17/2018 7:56 AM HEARING AND SPEECH ASSISTANT Sexual Orientation Straight 08/17/2018 7: 56 AM HEARING AND SPEECH ASSISTANT documented as of this encounter Plan of Treatment Upcoming Encounters Date Type Department Care Team (Late st Contact Info) Description 09/07/2024 10:00 AM CDT Office Visit [facility] [address] 200 [place] [address] Fransisco Eddy MD [address] [place] [address] 09/18/2024 2:00 PM CDT Virtual Visit [facility] [address] [facility] [address] [place] [address] Shanna Vang PA-C [address] [place] [address] 03/29/2025 3:40 PM CDT Office Visit [facility] [address] [place] [address] Alfreda Ray PA-C [address] [place] [address] 579932 documented as of this encounter Visit Diagnoses Not on filedocumented in this encounter Additional Health Concerns Infection Onset Date Last Indicated Resolved Time Rule Out COVID-19 05/08/2021 05/08/2021 05/09/2021 9:08 PM HEARING AND SPEECH ASSISTANT documented as of this encounter Care Teams Bridge Teacher Relationship Specialty Start Date End Date Esperanza Gatica MD PCP - General Family Practice 10/13/11 12/29/21 [place] [address] [address] GARCIA [address] PCP - Assigned PCP 12/05/17 08/23/18 Alfreda Ray PA-C [address] [place] [address] 136282 PCP - General Family Medicine 12/30/21 [place] [address] [address] GARCIA [address] Assigned PCP 12/05/17 09/30/19 [place] [address] [address] [place] GAFFNEY [address] Assigned PCP 10/01/19 03/02/20 [place] [address] [place] [address] Assigned PCP 03/03/20 05/25/20 [place] [address] [address] GARCIA [address] Assigned PCP 05/26/20 09/28/20 [place] [address] [place] [address] Assigned PCP 09/29/20 07/31/22 Jesú[place] [address] [address] Assigned Musculoskeletal Provider 10/20/20 04/17/22 Alfreda Ray PA-C [address] [place] [address] 114322 Referring Physician Family Medicine 12/31/21 Katrin Orellana PA-C [address] [place] [address] 393865 Physician Law Examiner Dermatology 12/31/21 Shanna Vang PA-C [address] [place] [address] 159234 Assigned Cancer Care Provider 01/10/22 Fransisco Eddy MD [address] [place] [address] Assigned Rheumatology Provider 05/09/22 [place] [address] [place] [address] Assigned Pain Medication Provider 06/29/22 09/04/22 [place] [address] [place] [address] Assigned PCP 08/15/22 08/28/22 Katrin Orellana PA-C [address] [place] [address] Assigned Surgical Provider 08/15/22 02/10/24 Cristina Hsieh [facility] [address] [place] [address] [place] [address] Pharmacist Pharmacist 09/07/22 Alfreda Ray PA-C [address] [place] [address] Assigned Pain Medication Provider 09/05/22 09/10/23 Alfreda Ray PA-C [address] [place] [address] Assigned PCP 08/29/22 Cristina Hsieh [facility] [address] [address] Assigned MTM Pharmacist 09/26/22 Dakota Tatum MD [address] [place] [address] Cardiovascular Disease 03/25/23 Dakota Tatum MD [address] [place] [address] Assigned Heart and Vascular Provider 05/01/23 [place] [address] [address] GASTELUM, [address] [address] Assigned Musculoskeletal Provider 04/12/24 documented as of this encounter
--- OUTSIDE RECORDS SUMMARY | 2024-07-28 14:26 | XMS_ITS | Encounter Summary ---
Author Organization [facility] Address [address] [place] [address] Care Team Providers Care Print Line Tailer Name Role Phone Esperanza Gatica MD Primary Care Provider + Esperanza Gatica MD Unavailable + Jesús Orourke MD Unavailable Alfreda Ray-C Primary Care Provider + Alfreda RayC Unavailable +[phone] Katrin Orellana PA-C Unavailable +[phone] Shanna Vang PA-C Unavailable +[phone] Fransisco Eddy MD Unavailable +[phone] Esperanza Gatica MD Unavailable + Esperanza Gatica MD Unavailable + Katrin OrellanaC Unavailable +[phone] Cristina Hsieh [facility] Unavailable +[phone] Alfreda Ray PA-C Unavailable +[phone] Alfreda Ray PA-C Unavailable +[phone] Cristina Hsieh [facility] Unavailable +[phone] Dakota Tatum MD Unavailable Dakota Tatum MD Unavailable + [phone] Srinivas Marie DO Unavailable [phone] Reason for Visit * Reason Onset Date Comments MyChart Communication 04/07/2021 Medication question-HCTZ Encounter Details Date Type Department Care Team (Late st Contact Info) Description 04/07/2021 MyC Medical Advice [facility] [address] [place] [address] [place] [id number] [place] [address] MyChart Communication (Medication question... Social History [...] Sex Assigned at Female 08/17/2018 7:56 AM CADET DECK Legal Sex Female 4:24 AM CADET DECK Gender Identity Female 08/17/2018 7:56 AM CADET DECK Sexual Orientation Straight 08/17/2018 7: 56 AM CADET DECK COVID-19 Exposure Response Date Recorded In the last month, have you been in contact with someone who was confirmed or suspected to have Coronavirus / COVID-19? No / Unsure 04/02/2021 10:04 AM CDT documented as of this encounter Plan of Treatment Upcoming Encounters Date Type Department Care Team (Late st Contact Info) Description 09/07/2024 10:00 AM CDT Office Visit [facility] [address] [address] Fransisco Eddy MD [address] [place] [address] 959725 09/18/2024 2:00 PM CDT Virtual Visit [facility] [address] [facility] [address] [place] [address] Shanna Vang PA-C [address] [place] [address] 03/29/2025 3:40 PM CDT Office Visit [address] [place] [address] Alfreda Ray PA-C [address] [place] [address] 618632 documented as of this encounter Visit Diagnoses Not on filedocumented in this encounter Additional Health Concerns Infection Onset Date Last Indicated Resolved Time Rule Out COVID-19 05/08/2021 05/08/2021 05/09/2021 9:08 PM CADET DECK Assessment Noted Time PHQ-9 Depression Total Score: 0 08/31/19 21 11:22 AM CADET DECK documented as of this encounter Care Teams Print Line Tailer Relationship Specialty Start Date End Date Esperanza Gatica MD PCP - General Family Practice 10/13/11 12/29/21 Alfreda Ray PA-C [address] [place] [address] 295782 PCP - General Family Medicine 12/30/21 [place] [address] [address]ARCIA [address] Assigned PCP 09/29/20 07/31/22 Jesú[place] [address] [place] [address] Assigned Musculoskeletal Provider 10/20/20 04/17/22 Alfreda Ray PA-C [address] [place] [address] 170412 Referring Physician Family Medicine 12/31/21 Katrin Orellana PA-C [address] 711465 Physician Treating Machine Operator Dermatology 12/31/21 Shanna Vang PA-C [address] [phone] Assigned Cancer Care Provider 01/10/22 Fransisco Eddy MD [address] [place] [address] 161465 Assigned Rheumatology Provider 05/09/22 [place] [address] [place] [address] Assigned Pain Medication Provider 06/29/22 09/04/22 [place] [address] [place] [address] Assigned PCP 08/15/22 08/28/22 Katrin Orellana PA-C [address] [place] [address] 185385 Assigned Surgical Provider 08/15/22 02/10/24 Cirstina Hsieh [facility] 3[address] [facility] LISBETH HERNANDEZ [phone] Pharmacist Pharmacist 09/07/22 Alfreda Ray PA-C [address] [place] [address] Assigned Pain Medication Provider 09/05/22 09/10/23 Alfreda Ray PA-C [address] [place] [address] Assigned PCP 08/29/22 Cristina Hsieh, [facility] [address] [id number] Assigned MTM Pharmacist 09/26/22 Dakota Tatum MD [address] [place] [address] 523115 Cardiovascular Disease 03/25/23 Dakota Tatum MD [address] [place] [address] 970255 Assigned Heart and Vascular Provider 05/01/23 [place] [address] [place] , [address] [address] Assigned Musculoskeletal Provider 04/12/24 documented as of this encounter
--- OUTSIDE RECORDS SUMMARY | 2024-07-28 14:26 | XMS_ITS | Encounter Summary ---
Author Organization [facility] Address [address] [place] [address] Care Team Providers Care Career Education Teacher Name Role Phone Esperanza Gatica MD Primary Care Provider + Esperanza Gatica MD Unavailable +264 Esperanza Gatica MD Unavailable +155 Esperanza Gatica MD Unavailable +177 Esperanza Gatica MD Unavailable +380 Esperanza Gatica MD Unavailable +201 Esperanza Gatica MD Unavailable +[phone] Jesús Orourke MD Unavailable Alfreda RayC Primary Care Provider + Alfreda Ray PA-C Unavailable + [phone] Katrin Orellana PA-C Unavailable +[phone] Shanna VangC Unavailable +[phone] Fransisco Eddy MD Unavailable +[phone] Esperanza Gatica MD Unavailable +[phone] Esperanza Gatica MD Unavailable +[phone] Katrin Orellana PA-C Unavailable Cristina Hsieh [facility] Unavailable RayAlfreda PA-C Unavailable +[phone] Cory Alfreda Liu PA-C Unavailable +[phone] Cristina Hsieh [facility] Unavailable Dakota Tatum MD Unavailable +[phone] Dakota Tatum MD Unavailable [phone] Srinivas Marie DO Unavailable [phone] Reason for Visit * Reason Onset Date Comments Refill Request 03/03/2014 Tramadol, Trazod one Encounter Details Date Type Department Care Team (Late st Contact Info) Description 03/03/2014 MyC Refill [address], [address] [place] [address] [place] [address] [place] [address] Refill Request (Tramadol, Trazodone) Social History Tobacco Use Types Packs/Day Years Used Date Smoking Tobacco: Former Cigarettes Q uit: 06/21/1973 Smokeless Tobacco: Former Alcohol Use Standard Drinks/Week Comments Yes 0 (1 standard drink = 0.6 oz pur e alcohol) rarely Comments No Sex and Gender Information Value Date Recorded Sex Assigned at Female 08/17/2018 7:56 AM LINUX SYSTEM ENGINEER Legal Sex Female 4:24 AM LINUX SYSTEM ENGINEER Gender Identity Female 08/17/2018 7:56 AM LINUX SYSTEM ENGINEER Sexual Orientation Straight 08/17/2018 7: 56 AM LINUX SYSTEM ENGINEER documented as of this encounter Miscellaneous [...] RN - 03/05/2014 7:53 AM CDTMessage [facility] Original authorizing provider: MD Alexandria Triplett would like a refill of the following medications: traMADol (ULTRAM) 50 MG tablet [Royer Brumfield MD] Preferred pharmacy: [id number] Comment: Medication renewals requested in this message routed to other providers: traZODone (DESYREL) 50 MG tablet [Esperanza Gatica MD] documented in this encounter Plan of Treatment Upcoming Encounters Date Type Department Care Team (Late st Contact Info) Description 09/07/2024 10:00 AM CDT Office Visit [facility] [address] [address] Fransisco Eddy MD [address] [place] [address] 88 [place], [place] 742175 09/18/2024 2:00 PM CDT Virtual Visit [facility] [place] [address] 105 [place] [address] Shanna Vang, [place]inson [address] [place] [address] 03/29/2025 3:40 PM CDT Office Visit [address] [phone] Alfreda Ray PA-C [address] [place] [address] 554802 documented as of this encounter Visit Diagnoses Diagnosis HTN (hypertension), benign Essential hypertension, benign Insomnia, unspecified documented in this encounter Additional Health Concerns Infection Onset Date Last Indicated Resolved Time Rule Out COVID-19 05/08/2021 05/08/2021 05/09/2021 9:08 PM LINUX SYSTEM ENGINEER documented as of this encounter Care Teams Career Education Teacher Relationship Specialty Start Date End Date Esperanza Gatica MD PCP - General Family Practice 10/13/11 12/29/21 [place] [address] [address]ARCIA [address] PCP - Assigned PCP 12/05/17 08/23/18 Alfreda Ray PA-C [address] [place] [address]858 PCP - General Family Medicine 12/30/21 [place] [address] [place] GARCIA [address] Assigned PCP 12/05/17 09/30/19 [place] [address] [address] GARCIA [address] Assigned PCP 10/01/19 03/02/20 [place] [address] [address]ARCIA [address] Assigned PCP 03/03/20 05/25/20 [place] [address] [address] [address] Assigned PCP 05/26/20 09/28/20 [place] [address] [place] [address] Assigned PCP 09/29/20 07/31/22 [place] [address] [place] [address] [place] [address] [place] [address] Assigned Musculoskeletal Provider 10/20/20 04/17/22 Alfreda Ray PA-C [address] [place] [address] Referring Physician Family Medicine 12/31/21 Katrin Orellana PA-C [address] [place] [address]676 Physician Surgical Services Assistant Dermatology 12/31/21 Shanna Vang PA-C [address] [address] Assigned Cancer Care Provider 01/10/22 Fransisco Eddy MD [address] [place] [address] Assigned Rheumatology Provider 05/09/22 [place] [address] [address] [address] Assigned Pain Medication Provider 06/29/22 09/04/22 [place] [address] [address] GARCIA [address] Assigned PCP 08/15/22 08/28/22 Katrin Orellana PA-C [address] [place] [address]132 Assigned Surgical Provider 08/15/22 02/10/24 Cristina Hsieh [place] [address] [place] [address] Pharmacist Pharmacist 09/07/22 Alfreda Ray PA-C [address] [place] [address] 630922 Assigned Pain Medication Provider 09/05/22 09/10/23 Alfreda Ray PA-C [address] [place] [address] 146552 Assigned PCP 08/29/22 Cristina Hsieh [place] [address] [place] [address] Assigned MTM Pharmacist 09/26/22 Dakota Tatum MD [address] [place] [address] Cardiovascular Disease 03/25/23 Dakota Tatum MD [address] [place] [address] 198795 Assigned Heart and Vascular Provider 05/01/23 [place] [address] [facility] [address] [place] [address] Assigned Musculoskeletal Provider 04/12/24 documented as of this encounter
--- OUTSIDE RECORDS SUMMARY | 2024-07-28 14:26 | XMS_ITS | Encounter Summary ---
Author Organization [facility] Address [address] [place] [address] Care Team Providers Care Manager Regulatory Name Role Phone Esperanza Gatica MD Primary Care Provider + Esperanza Gatica MD Unavailable +[phone] Esperanza Gatica MD Unavailable +[phone] Esperanza Gatica MD Unavailable +[phone] Esperanza Gatica MD Unavailable +[phone] Esperanza Gatica MD Unavailable +[phone] Esperanza Gatica MD Unavailable +[phone] Jesús Orourke MD Unavailable Alfreda RayC Primary Care Provider + Alfreda Ray PA-C Unavailable + [phone] Katrin Orellana PA-C Unavailable +[phone] Shanna VangC Unavailable +[phone] Fransisco Eddy MD Unavailable +[phone] Esperanza Gatica MD Unavailable +[phone] Esperanza Gatica MD Unavailable +[phone] Katrin Orellana PA-C Unavailable Cristina Hsieh [facility] Unavailable Cory Alfreda Liu PA-C Unavailable +[phone] Ho Raymustapha Liu PA-C Unavailable +[phone] Cristina Hsieh [facility] Unavailable +[phone] Dakota Tatum MD Unavailable +[phone] Dakota Tatum MD Unavailable [phone] Srinivas Marie DO Unavailable +[phone] Reason for Visit * Reason Onset Date Comments Refill Request 05/06/2014 Tramadol 50mg Encounter Details Date Type Department Care Team (Late st Contact Info) Description 05/06/2014 MyC Refill [address], [facility] [address] [place] [address] [place] [address] [place] [address] Refill Request (Tramadol 50mg) Social History Tobacco Use Types Packs/Day Years Used Date Smoking Tobacco: Former Cigarettes Q uit: 06/21/1973 Smokeless Tobacco: Former Alcohol Use Standard Drinks/Week Comments Yes 0 (1 standard drink = 0.6 oz pur e alcohol) rarely Comments No Sex and Gender Information Value Date Recorded Sex Assigned at Female 08/17/2018 7:56 AM SQL REPORT WRITER Legal Sex Female 4:24 AM SQL REPORT WRITER Gender Identity Female 08/17/2018 7:56 AM SQL REPORT WRITER Sexual Orientation Straight 08/17/2018 7: 56 AM SQL REPORT WRITER documented as of this encounter Miscellaneous Notes * Telephone Encounter - Leigha Rinaldi RN - 05/07/2014 2:40 PM CST Pending Prescriptions: Disp Refills traMADol (ULTRAM) 50 MG tablet 30 tab*0 Sig: Take 1 tablet (50 mg) by mouth every 6 hours as needed for pain Last OV: 03/29/2014 Reason: IBS Last filled: 04/09/2014 #30 Leigha Rinaldi RN REPORT WRITER * Telephone Encounter - Leigha Rinaldi RN - 05/07/2014 2:39 PM CSTMessage from MyChart: Original authorizing provider: MD Alexandria Brannon would like a refill of the following medications: traMADol (ULTRAM) 50 MG tablet [Esperanza Gatica MD] Preferred pharmacy: [id number] Comment: REPORT WRITER documented in this encounter Plan of Treatment Upcoming Encounters Date Type Department Care Team (Late st Contact Info) Description 09/07/2024 10:00 AM CDT Office Visit [facility] [address] 200 [place] [phone] Fransisco Eddy MD [address] [place] [address] 88 [place], [place] 263405 09/18/2024 2:00 PM CDT Virtual Visit [facility] [address] [place] [address] 105 [place] [address] Shanna Vang, PARobinson [address] [place] [address] 03/29/2025 3:40 PM CDT Office Visit [address] [place] [phone] Alfreda Ray PA-C [address] [place] [address] 487762 documented as of this encounter Visit Diagnoses Diagnosis HTN (hypertension), benign Essential hypertension, benign documented in this encounter Additional Health Concerns Infection Onset Date Last Indicated Resolved Time Rule Out COVID-19 05/08/2021 05/08/2021 05/09/2021 9:08 PM SQL REPORT WRITER documented as of this encounter Care Teams Manager Regulatory Relationship Specialty Start Date End Date Esperanza Gatica MD PCP - General Family Practice 10/13/11 12/29/21 [place] [address] [place] [address] PCP - Assigned PCP 12/05/17 08/23/18 Alfreda Ray PA-C [address] [place] [address] PCP - General Family Medicine 12/30/21 [place] [address] [place] [address] Assigned PCP 12/05/17 09/30/19 [place] [address] [place] [address] Assigned PCP 10/01/19 03/02/20 [place] [address] [place] [address] Assigned PCP 03/03/20 05/25/20 [place] [address] [place] [address] Assigned PCP 05/26/20 09/28/20 [place] [address] [place] [address] Assigned PCP 09/29/20 07/31/22 Jesú[place] [address] [address] Assigned Musculoskeletal Provider 10/20/20 04/17/22 Alfreda Ray PA-C [address] [place] [address] [phone] Referring Physician Family Medicine 12/31/21 Katrin Orellana PA-C [address] [place] [address] 266615 Physician Aviation Medicine Specialist Dermatology 12/31/21 Shanna Vang PA-C [address] [place] [address] 913894 Assigned Cancer Care Provider 01/10/22 Fransisco Eddy MD [address] [place] [address] [phone] Assigned Rheumatology Provider 05/09/22 [place] [address] [address]ARCIA [address] Assigned Pain Medication Provider 06/29/22 09/04/22 [place] [address] [address] [address] Assigned PCP 08/15/22 08/28/22 Katrin Orellana PA-C [address] [place] [address] [phone] Assigned Surgical Provider 08/15/22 02/10/24 Cristina Hsieh [facility] [address] [facility] [place]NANDEZ [address] Pharmacist Pharmacist 09/07/22 Alfreda Ray PA-C [address] [place] [address] [phone] Assigned Pain Medication Provider 09/05/22 09/10/23 Alfreda Ray PA-C [address] [place] [address] 164962 Assigned PCP 08/29/22 Cristina Hsieh [facility] [address] [place] [address] Assigned MTM Pharmacist 09/26/22 Dakota Tatum MD [address] [place] [address] 812005 Cardiovascular Disease 03/25/23 Dakota Tatum MD [address] [place] [address] Assigned Heart and Vascular Provider 05/01/23 [place] [address] [address] , [address] [place] [address] Assigned Musculoskeletal Provider 04/12/24 documented as of this encounter
--- OUTSIDE RECORDS SUMMARY | 2024-07-28 14:27 | XMS_ITS | Encounter Summary ---
Author Organization [facility] Address [address] [place] [address] Care Team Providers Care Sexual Assault Counsellor Name Role Phone Esperanza Gatica MD Primary Care Provider + Esperanza Gatica MD Unavailable + Jesús Orourke MD Unavailable Alfreda Ray-C Primary Care Provider + Alfreda RayC Unavailable +[phone] Katrin Orellana PA-C Unavailable +[phone] Shanna Vang PA-C Unavailable +[phone] Fransisco Eddy MD Unavailable +[phone] Esperanza Gatica MD Unavailable + Esperanza Gatica MD Unavailable + Katrin OrellanaC Unavailable +[phone] Cristina Hsieh [facility] Unavailable +[phone] Alfreda Ray PA-C Unavailable +[phone] Alfreda Ray PA-C Unavailable +[phone] Cristina Hsieh [facility] Unavailable [phone] Dakota Tatum MD Unavailable Dakota Tatum MD Unavailable +[phone] Srinivas Marie DO Unavailable [phone] Encounter Details Date Type Department Care Team (Late Contact Info) Description 01/01/2021 MyC Medical Advice [facility] [address] [place] [address] [place] [address] [place] [address] Social History Tobacco Use Types [...] Assigned at Female 08/17/2018 7:56 AM RODEO PERFORMER Legal Sex Female 4:24 AM RODEO PERFORMER Gender Identity Female 08/17/2018 7:56 AM RODEO PERFORMER Sexual Orientation Straight 08/17/2018 7: 56 AM RODEO PERFORMER COVID-19 Exposure Response Date Recorded In the last month, have you been in contact with someone who was confirmed or suspected to have Coronavirus / COVID-19? No / Unsure 12/31/2020 8:35 AM CDT documented as of this encounter Plan of Treatment Upcoming Encounters Date Type Department Care Team (Late Contact Info) Description 09/07/2024 10:00 AM CDT Office Visit [facility] [place] [address] [facility] 200 [place] [address] Fransisco Eddy MD [address] [place] [address] 88 [place] [address] 09/18/2024 2:00 PM CDT Virtual Visit [facility] [address] [place] [address] Shanna Vang PA-C [address] [place] [address] 03/29/2025 3:40 PM CDT Office Visit [address] [address] Alfreda Ray PA-C [address] [place] [address] [phone] documented as of this encounter Visit Diagnoses Not on filedocumented in this encounter Additional Health Concerns Infection Onset Date Last Indicated Resolved Time Rule Out COVID-19 05/08/2021 05/08/2021 05/09/2021 9:08 PM RODEO PERFORMER Assessment Noted Time PHQ-9 Depression Total Score: 0 08/31/19 21 11:22 AM RODEO PERFORMER documented as of this encounter Care Teams Sexual Assault Counsellor Relationship Specialty Start Date End Date Esperanza Gatica MD PCP - General Family Practice 10/13/11 12/29/21 Alfreda Ray PA-C [address] [place] [address] PCP - General Family Medicine 12/30/21 [place] [address] [place] [address] Assigned PCP 09/29/20 07/31/22 Jesú[place] [address] [place] [address] Assigned Musculoskeletal Provider 10/20/20 04/17/22 Alfreda Ray PA-C [address] [place] [address] Referring Physician Family Medicine 12/31/21 Katrin Orellana PA-C [address] [place] [address] Physician Informatics Manager Dermatology 12/31/21 Shanna Vang PA-C [address] [address] Assigned Cancer Care Provider 01/10/22 Fransisco Eddy MD [address] [place] [address] Assigned Rheumatology Provider 05/09/22 [place] [address] [place] [address] Assigned Pain Medication Provider 06/29/22 09/04/22 [place] [address] [place] [address] Assigned PCP 08/15/22 08/28/22 Katrin Orellana PA-C [address] [place] [address] Assigned Surgical Provider 08/15/22 02/10/24 Cristina Hsieh [facility] [address] [facility] [place]BETH HERNANDEZ [address] Pharmacist Pharmacist 09/07/22 Alfreda Ray PA-C [address] [place] [address] Assigned Pain Medication Provider 09/05/22 09/10/23 Alfreda Ray PA-C [address] [place] [address] Assigned PCP 08/29/22 Cristina Hsieh, [facility] [address] [place] [address] Assigned MTM Pharmacist 09/26/22 Dakota Tatum MD [address] [place] [address] Cardiovascular Disease 03/25/23 Dakota Tatum MD [address] [place] [address] Assigned Heart and Vascular Provider 05/01/23 [place] [address] [address], [address] [address] Assigned Musculoskeletal Provider 04/12/24 documented as of this encounter
--- OUTSIDE RECORDS SUMMARY | 2024-07-28 14:27 | XMS_ITS | Encounter Summary ---
Author Organization [facility] Address [address] [place] [address] Care Team Providers Care Dye Winch Operator Name Role Phone Alfreda Ray PA-C Primary Care Provider + Alfreda Ray PA-C Unavailable [phone] Katrin Orellana PA-C Unavailable [phone] Shanna Vang PA-C Unavailable +[phone] Fransisco Eddy MD Unavailable +[phone] Katrin Orellana PA-C Unavailable [phone] Cristina Hsieh [facility] Unavailable +[phone] Alfreda Ray PA-C Unavailable [phone] Cristina Hsieh [facility] Unavailable [phone] Dakota Tatum MD Unavailable [phone] Dakota Tatum MD Unavailable [phone] Srinivas Marie DO Unavailable [phone] Reason for Visit * Reason Comments Medication Refill Encounter Details Date Type Department Care Team (Late st Contact Info) Description 10/08/2023 Refill [facility] [place] [address] [facility] [address] [place] [address] Alfreda Ray PA-C [address]12 [place] [address] Medication Refill Social History Tobacco Use Types [...] Assigned at Female 08/17/2018 7:56 AM EMPLOYEE REPRESENTATIVE Legal Sex Female 4:24 AM EMPLOYEE REPRESENTATIVE Gender Identity Female 08/17/2018 7:56 AM EMPLOYEE REPRESENTATIVE Sexual Orientation Straight 08/17/2018 7: 56 AM EMPLOYEE REPRESENTATIVE documented as of this encounter Miscellaneous Notes * Telephone Encounter - Natalia Klein CMA - 10/12/2023 4:19 PM CDT Called patient scheduled for BP check in [place] on 10/14/2023. Natalia Klein CMA * Telephone Encounter - Alfreda Ray PA-C - 10/11/2023 12:07 PM CDT Refilled x 90 days. Please advise patient last blood pressure was above goal. Please encourage her to schedule a nurse only blood pressure visit at the [facility] near her home or a [facility] pharmacy. Not due for annual visit until February 2024. If she would like to schedule thisplease assist her in doing so. documented in this encounter Plan of Treatment Upcoming Encounters Date Type Department Care Team (Late st Contact Info) Description 09/07/2024 10:00 AM CDT Office Visit [facility] [address] [phone] Fransisco Eddy MD [address] [place] [address] 09/18/2024 2:00 PM CDT Virtual Visit [facility] [place] [address] 105 [place] [phone] Shanna Vang PA-C [address] [place] [address] 03/29/2025 3:40 PM CDT Office Visit [place] [address] [place] [address] Alfreda Rya PA-C [address] [place] [address] 559332 documented as of this encounter Visit Diagnoses Diagnosis Primary osteoarthritis involving multiple joints documented in this encounter Additional Health Concerns Assessment Noted Time PHQ-9 Depression Total Score: 5 03/09/20 23 10:57 AM CDT documented as of this encounter Care Teams Dye Winch Operator Relationship Specialty Start Date End Date Alfreda Ray PA-C [address] [place] [address] [id number] PCP - General Family Medicine 12/30/21 Alfreda Ray PA-C [address] [place] [address] 352582 Referring Physician Family Medicine 12/31/21 Katrin Orellana PA-C [address] [place] [address] 988905 Physician Space Operations Dermatology 12/31/21 Shanna Vang PA-C [facility] [address] [place] [address] 698094 Assigned Cancer Care Provider 01/10/22 Fransisco Eddy MD [address] [place] [address] 067315 Assigned Rheumatology Provider 05/09/22 Katrin Orellana PA-C [address] [place] [address] 814635 Assigned Surgical Provider 2/25/23 8/22/24 Cristina Hsieh [facility] 3[address] [facility] L[place]BETH HERNANDEZ [address] Pharmacist Pharmacist 09/07/22 Alfreda Ray PA-C 4151 [place], [place] 335112 Assigned PCP 08/29/22 Cristina Hsieh [facility] [address] [facility] 101 [place] [address] Assigned MTM Pharmacist 09/26/22 Dakota Tatum MD 516 [place], [place] 893055 Cardiovascular Disease 03/25/23 Dakota Tatum MD [address] [place], [place] 089745 Assigned Heart and Vascular Provider 05/01/23 [place] [address] [place] , [facility] 300 [place] [address] Assigned Musculoskeletal Provider 04/12/24 documented as of this encounter
--- OUTSIDE RECORDS SUMMARY | 2024-07-28 14:27 | XMS_ITS | Encounter Summary ---
Author Organization [facility] Address [address] [place] [address] Care Team Providers Care Freight Sales Broker Name Role Phone Esperanza Gatica MD Primary Care Provider + Esperanza Gatica MD Unavailable + Jesús Orourke MD Unavailable Alfreda Ray-C Primary Care Provider + Alfreda RayC Unavailable +[phone] Katrin Orellana PA-C Unavailable +[phone] Shanna Vang PA-C Unavailable +[phone] Fransisco Eddy MD Unavailable +[phone] Esperanza Gatica MD Unavailable + Esperanza Gatica MD Unavailable + Katrin OrellanaC Unavailable +[phone] Cristina Hsieh [facility] Unavailable +[phone] Alfreda Ray PA-C Unavailable +2600 Alfreda Ray PA-C Unavailable +2600 Cristina Hsieh [facility] Unavailable +[phone] Dakota Tatum MD Unavailable Dakota Tatum MD Unavailable +[phone] Srinivas Marie DO Unavailable [phone] Encounter Details Date Type Department Care Team (Late st Contact Info) Description 06/16/2021 MyC Medical Advice [facility] [address] [place] [phone] [place] [address] [place] [address] Social History Tobacco Use Types [...] Sex Assigned at Female 08/17/2018 7:56 AM FACULTY RESEARCH PHYSICIAN Legal Sex Female 4:24 AM FACULTY RESEARCH PHYSICIAN Gender Identity Female 08/17/2018 7:56 AM FACULTY RESEARCH PHYSICIAN Sexual Orientation Straight 08/17/2018 7: 56 AM FACULTY RESEARCH PHYSICIAN documented as of this encounter Plan of Treatment Upcoming Encounters Date Type Department Care Team (Late st Contact Info) Description 09/07/2024 10:00 AM CDT Office Visit [facility] [address] 200 [place] [phone] Fransisco Eddy MD [address] [place] [place] [address] 88 [place] [address] 09/18/2024 2:00 PM CDT Virtual Visit [facility] [place] [address] 105 [place] [phone] Shanna Vang, PAFilemonC [address] [place] [address] 03/29/2025 3:40 PM CDT Office Visit [address] [phone] Alfreda Ray PA-C [address] [place] [address] 462602 documented as of this encounter Visit Diagnoses Not on filedocumented in this encounter Additional Health Concerns Assessment Noted Time PHQ-9 Depression Total Score: 0 08/31/19 21 11:22 AM FACULTY RESEARCH PHYSICIAN documented as of this encounter Care Teams Freight Sales Broker Relationship Specialty Start Date End Date Esperanza Gatica MD PCP - General Family Practice 10/13/11 12/29/21 Alfreda Ray PA-C [address] [place] [address] 477392 PCP - General Family Medicine 12/30/21 [place] [address] [facility] [place] [address] Assigned PCP 09/29/20 07/31/22 Jesú[place] [address] [place] [address] Assigned Musculoskeletal Provider 10/20/20 04/17/22 Alfreda Ray PA-C [address] [place] [address] 245162 Referring Physician Family Medicine 12/31/21 Katrin Orellana PA-C [address] [place] [address] Physician City Route Driver Dermatology 12/31/21 Shanna Vang PA-C [address] [phone] Assigned Cancer Care Provider 01/10/22 Fransisco Eddy MD [address] [place] [address] 760345 Assigned Rheumatology Provider 05/09/22 [place] [address] [place] [address] Assigned Pain Medication Provider 06/29/22 09/04/22 [place] [address] [place] [address] Assigned PCP 08/15/22 08/28/22 Katrin Orellana PA-C [address] [place] [address] Assigned Surgical Provider 08/15/22 02/10/24 Cristina Hsieh [facility] [address] [place] [address] LISBETH HERNANDEZ [address] Pharmacist Pharmacist 09/07/22 Alfreda Ray PA-C [address] [place] [address] 797192 Assigned Pain Medication Provider 09/05/22 09/10/23 Alfreda Ray PA-C [address] [place] [address] 411162 Assigned PCP 08/29/22 Cristina Hsieh, [facility] 1600 [facility] 101 [place] [address] Assigned MTM Pharmacist 09/26/22 Dakota Tatum MD [address] [place] [address] 205305 Cardiovascular Disease 03/25/23 Dakota Tatum MD [address] [place] [address] 630945 Assigned Heart and Vascular Provider 05/01/23 [place] [address] [address], [facility] 300 [place] [address] Assigned Musculoskeletal Provider 04/12/24 documented as of this encounter
--- OUTSIDE RECORDS SUMMARY | 2024-07-28 14:27 | XMS_ITS | Encounter Summary ---
Author Organization [facility] Address [address] [place] [address]378 Care Team Providers Care Safety Person Name Role Phone Esperanza Gatica MD Primary Care Provider + Esperanza Gatica MD Unavailable + Jesús Orourke MD Unavailable Alfreda Ray-C Primary Care Provider + Alfreda RayC Unavailable +[phone] Katrin Orellana PA-C Unavailable +[phone] Shanna Vang PA-C Unavailable +[phone] Fransisco Eddy MD Unavailable +[phone] Esperanza Gatica MD Unavailable + Esperanza Gatica MD Unavailable + Katrin OrellanaC Unavailable +[phone] Cristina Hsieh [facility] Unavailable +[phone] Alfreda Ray PA-C Unavailable +[phone] Alfreda Ray PA-C Unavailable +[phone] Cristina Hsieh [facility] Unavailable +[phone] Dakota Tatum MD Unavailable Dakota Tatum MD Unavailable + [phone] Srinivas Marie DO Unavailable [phone] Reason for Visit * Reason Onset Date Comments Hip Pain 01/17/2021 Encounter Details Date Type Department Care Team (Late st Contact Info) Description 01/17/2021 MyC Medical Advice [facility] [address] [place] [address] [place] [address] [place] [address] Hip Pain Social History Tobacco [...] Sex Assigned at Female 08/17/2018 7:56 AM CORRECTIONAL OFFICER CAPTAIN Legal Sex Female 4:24 AM CORRECTIONAL OFFICER CAPTAIN Gender Identity Female 08/17/2018 7:56 AM CORRECTIONAL OFFICER CAPTAIN Sexual Orientation Straight 08/17/2018 7: 56 AM CORRECTIONAL OFFICER CAPTAIN COVID-19 Exposure Response Date Recorded In the [...] CDT Office Visit [facility] [address] [place] [address] 200 [place] [phone] Fransisco Eddy MD [address] [place] [address] 88 [place], [place] 816625 09/18/2024 2:00 PM CDT [facility] [address] [place] [address] 105 [place] [phone] Shanna Vang PA-C [address] [place] [address] 896484 03/29/2025 3:40 PM CDT Office Visit [address] [phone] Alfreda Ray PA-C [address] [place] [address] 629122 documented as of this encounter Visit Diagnoses Not on filedocumented in this encounter Additional Health Concerns Infection Onset Date Last Indicated Resolved Time Rule Out COVID-19 05/08/2021 05/08/2021 05/09/2021 9:08 PM CORRECTIONAL OFFICER CAPTAIN Assessment Noted Time PHQ-9 Depression Total Score: 0 08/31/19 21 11:22 AM CORRECTIONAL OFFICER CAPTAIN documented as of this encounter Care Teams Safety Person Relationship Specialty Start Date End Date Esperanza Gatica MD PCP - General Family Practice 10/13/11 12/29/21 Alfreda aRy PA-C [address] [place] [address] PCP - General Family Medicine 12/30/21 [place] [address] [place] [address] Assigned PCP 09/29/20 07/31/22 Jesú[place] [address] [place] [address] [address] Assigned Musculoskeletal Provider 10/20/20 04/17/22 Alfreda Ray PA-C [address] [place] [address] 065132 Referring Physician Family Medicine 12/31/21 Katrin Orellana PA-C [address] [place] [address] Physician Power Manager Dermatology 12/31/21 Shanna Vang PA-C [address] [address] Assigned Cancer Care Provider 01/10/22 Fransisco Eddy MD [address] [place] [address] Assigned Rheumatology Provider 05/09/22 [place] [address] [place] [address] Assigned Pain Medication Provider 06/29/22 09/04/22 [place] [address] [place] [address] Assigned PCP 08/15/22 08/28/22 Katrin Orellana PA-C [address] [place] [address] 98 [place] [address] Assigned Surgical Provider 08/15/22 02/10/24 Cristina Hsieh [facility] [address] [place] [address] Pharmacist Pharmacist 09/07/22 Alfreda Ray PA-C [address] [place] [address] 827992 Assigned Pain Medication Provider 09/05/22 09/10/23 Alfreda Ray PA-C [address] [place] [address] 434752 Assigned PCP 08/29/22 Cristina Hsieh [facility] [address] [place] [address] Assigned MTM Pharmacist 09/26/22 Dakota Tatum MD [address] [place] [address] Cardiovascular Disease 03/25/23 Daokta Tatum MD [address] [place] [address] Assigned Heart and Vascular Provider 05/01/23 [place] [address] [facility], [address] [address] Assigned Musculoskeletal Provider 04/12/24 documented as of this encounter
--- OUTSIDE RECORDS SUMMARY | 2024-07-28 14:27 | XMS_ITS | Encounter Summary ---
Author Organization [facility] Address [address] [place] [address] Care Team Providers Care User Experience Lead Name Role Phone Alfreda Ray PA-C Primary Care Provider + Alfreda Ray PA-C Unavailable [phone] Katrin Orellana PA-C Unavailable [phone] Shanna Vang PA-C Unavailable +[phone] Fransisco Eddy MD Unavailable [phone] Katrin Orellana PA-C Unavailable [phone] Cristina Hsieh [facility] Unavailable +[phone] Alfreda Ray PA-C Unavailable + [phone] Alfreda Ray PA-C Unavailable + [phone] Cristina Hsie[facility] Unavailable +[phone] Dakota Tatum MD Unavailable + [phone] Dakota Tatum MD Unavailable + [phone] Srinivas Marie DO Unavailable [phone] Encounter Details Date Type Department Care Team (Late st Contact Info) Description 06/16/2023 [facility] [address] [place] [address] Shanna Vang PA-C [address] [place] [address] Social History Tobacco Use Types Packs/Day Years [...] in an overnight chcf, or couch-surfing.) Yes 05/18/2023 Are you worried [...] Sex Assigned at Female 08/17/2018 7:56 AM RETORT FEEDER GROUND BONE Legal Sex Female 4:24 AM RETORT FEEDER GROUND BONE Gender Identity Female 08/17/2018 7:56 AM RETORT FEEDER GROUND BONE Sexual Orientation Straight 08/17/2018 7: 56 AM RETORT FEEDER GROUND BONE documented as of this encounter Plan of Treatment Upcoming Encounters Date Type Department Care Team (Late st Contact Info) Description 09/07/2024 10:00 AM CDT Office Visit [facility] [address] 200 [place] [phone] Fransisco Eddy MD [address] [place] [address] 88 [place] [address] 09/18/2024 2:00 PM CDT Virtual Visit [facility] [place] [address] 105 [place] [address] Shanna Vang, FERNANDO [address] [address] 03/29/2025 3:40 PM CDT Office Visit [address] [address] Alfreda Ray PA-C [address] [place] [address] 407822 documented as of this encounter Visit Diagnoses Not on filedocumented in this encounter Additional Health Concerns Assessment Noted Time PHQ-9 Depression Total Score: 5 03/09/20 23 10:57 AM CDT documented as of this encounter Care Teams User Experience Lead Relationship Specialty Start Date End Date Alfreda Ray PA-C [address] [place] [address] 718572 PCP - General Family Medicine 12/30/21 Alfreda Ray PA-C [address] [place] [address] Referring Physician Family Medicine 12/31/21 Katrin Orellana PA-C [address] [place] [address] Light Servicer Dermatology 12/31/21 Shanna Vang PA-C [address] [place] [address] Assigned Cancer Care Provider 01/10/22 Fransisco Eddy MD [address] [place] [address] Assigned Rheumatology Provider 05/09/22 Katrin Orellana PA-C [address] [place] [address] Assigned Surgical Provider 08/15/22 02/10/24 Crist[facility] [address] [place] [address] [place] [address] Pharmacist Pharmacist 09/07/22 Alfreda Ray PA-C [address] [place] [address] Assigned Pain Medication Provider 09/05/22 09/10/23 Alfreda Ray PA-C [address] [place] [address] Assigned PCP 08/29/22 Cristina Hsieh [facility] [address] [address] Assigned MTM Pharmacist 09/26/22 Dakota Tatum MD [address] [place] [address] Cardiovascular Disease 03/25/23 Dakota Tatum MD [address] [place] [address] Assigned Heart and Vascular Provider 05/01/23 [place] [address] CE[address] GASTELUM, [facility] [address] [place] [address] Assigned Musculoskeletal Provider 04/12/24 documented as of this encounter
--- OUTSIDE RECORDS SUMMARY | 2024-07-28 14:27 | XMS_ITS | Encounter Summary ---
Author Organization [facility] Address [address] [place] [address] Care Team Providers Care Pig Breeder Name Role Phone Esperanza Gatica MD Primary Care Provider + Esperanza Gatica MD Unavailable + Jesús Orourke MD Unavailable Alfreda Ray-C Primary Care Provider + Alfreda RayC Unavailable +[phone] Katrin Orellana PA-C Unavailable +[phone] Shanna Vang PA-C Unavailable +[phone] Fransisco Eddy MD Unavailable +[phone] Esperanza Gatica MD Unavailable + Esperanza Gatica MD Unavailable + Katrin OrellanaC Unavailable +[phone] Cristina Hsieh [facility] Unavailable +[phone] Alfreda Ray PA-C Unavailable +[phone] Alfreda Ray PA-C Unavailable +2600 Cristina Hsieh [facility] Unavailable +[phone] Dakota Tatum MD Unavailable Dakota Tatum MD Unavailable +[phone] Srinivas Marie DO Unavailable [phone] Encounter Details Date Type Department Care Team (Late Contact Info) Description 01/02/2021 MyC Medical Advice [facility] [address] [place] [address] [place] [address] [place] [address] Social History Tobacco Use Types [...] Sex Assigned at Female 08/17/2018 7:56 AM PERSONNEL RECRUITER Legal Sex Female 4:24 AM PERSONNEL RECRUITER Gender Identity Female 08/17/2018 7:56 AM PERSONNEL RECRUITER Sexual Orientation Straight 08/17/2018 7: 56 AM PERSONNEL RECRUITER COVID-19 Exposure Response Date Recorded In the last month, have you been in contact with someone who was confirmed or suspected to have Coronavirus / COVID-19? No / Unsure 12/31/2020 8:35 AM CDT documented as of this encounter Plan of Treatment Upcoming Encounters Date Type Department Care Team (Late Contact Info) Description 09/07/2024 10:00 AM CDT Office Visit [facility] [place] 65[address] [facility] 200 [place] [address] Fransisco Eddy MD [address] [place] [address] 88 [place] [address] 09/18/2024 2:00 PM CDT Virtual Visit [facility] [address] 105 [place] [address] Shanna Vang PA-C [address] [place] [address] 03/29/2025 3:40 PM CDT Office Visit [address] [address] Alfreda Ray PA-C [address] [place] [address] 043962 documented as of this encounter Visit Diagnoses Not on filedocumented in this encounter Additional Health Concerns Infection Onset Date Last Indicated Resolved Time Rule Out COVID-19 05/08/2021 05/08/2021 05/09/2021 9:08 PM PERSONNEL RECRUITER Assessment Noted Time PHQ-9 Depression Total Score: 0 08/31/19 21 11:22 AM PERSONNEL RECRUITER documented as of this encounter Care Teams Pig Breeder Relationship Specialty Start Date End Date Esperanza Gatica MD PCP - General Family Practice 10/13/11 12/29/21 Alfreda Ray PA-C [address] [place] [address] PCP - General Family Medicine 12/30/21 [place] [address] [place] [address] Assigned PCP 09/29/20 07/31/22 [place] [address] [place] [address] Assigned Musculoskeletal Provider 10/20/20 04/17/22 Alfreda Ray PA-C [address] [place] [address] Referring Physician Family Medicine 12/31/21 Katrin Orellana PA-C [address] [place] [address] Physician Tanning Wheel Filler Dermatology 12/31/21 Shanna Vang PA-C [address] [address] Assigned Cancer Care Provider 01/10/22 Fransisco Eddy MD [address] [place] [address] Assigned Rheumatology Provider 05/09/22 [place] [address] [place] [address] Assigned Pain Medication Provider 06/29/22 09/04/22 [place] [address] [place] [address] Assigned PCP 08/15/22 08/28/22 Katrin Orellana PA-C [address] [place] [address] Assigned Surgical Provider 08/15/22 02/10/24 Cristina Hsieh [facility] 3305 [facility] [place] [address] Pharmacist Pharmacist 09/07/22 Alfreda Ray PA-C [address] [place] [address] Assigned Pain Medication Provider 09/05/22 09/10/23 Alfreda Ray PA-C [address] [place] [address] Assigned PCP 08/29/22 Cristina Hsieh, [facility] [address] [place] [address] Assigned MTM Pharmacist 09/26/22 Dakota Tatum MD [address] [place] [address] Cardiovascular Disease 03/25/23 Dakota Tatum MD [address] [place] [address] Assigned Heart and Vascular Provider 05/01/23 [place] [address] CE[address] GASTELUM, [address] [address] Assigned Musculoskeletal Provider 04/12/24 documented as of this encounter
--- OUTSIDE RECORDS SUMMARY | 2024-07-28 14:27 | XMS_ITS | Encounter Summary ---
Author Organization [facility] Address [address] [place] [address] Care Team Providers Care Machine Sewer Name Role Phone Esperanza Gatica MD Primary Care Provider + Esperanza Gatica MD Unavailable + Jesús Orourke MD Unavailable Alfreda Ray-C Primary Care Provider + Alfreda RayC Unavailable +[phone] Katrin Orellana PA-C Unavailable +[phone] Shanna Vang PA-C Unavailable +[phone] Fransisco Eddy MD Unavailable +[phone] Esperanza Gatica MD Unavailable + Esperanza Gatica MD Unavailable + Katrin OrellanaC Unavailable +[phone] Cristina Hsieh [facility] Unavailable +[phone] Alfreda Ray PA-C Unavailable +[phone] Alfreda Ray PA-C Unavailable +2600 Cristina Hsieh [facility] Unavailable +[phone] Dakota Tatum MD Unavailable Dakota Tatum MD Unavailable +[phone] Srinivas Marie DO Unavailable [phone] Encounter Details Date Type Department Care Team (Late Contact Info) Description 01/02/2021 MyC Medical Advice [facility] [address] [place] [address] [place] [address] [place] [address] Social History Tobacco Use [...] Sex Assigned at Female 08/17/2018 7:56 AM TUBE MOUNTER Legal Sex Female 4:24 AM TUBE MOUNTER Gender Identity Female 08/17/2018 7:56 AM TUBE MOUNTER Sexual Orientation Straight 08/17/2018 7: 56 AM TUBE MOUNTER COVID-19 Exposure Response Date Recorded In the [...] Visit [facility] [place] 6525 [facility] 200 [place] [address] Fransisco Eddy MD [address] [place] [address] 88 [place] [address] 09/18/2024 2:00 PM CDT Virtual Visit [facility] [address] 105 [place] [address] Shanna Vang PA-C [address] [place] [address] 03/29/2025 3:40 PM CDT Office Visit [address] [address] Alfreda Ray PA-C [address] [place] [address] 665692 documented as of this encounter Visit Diagnoses Not on filedocumented in this encounter Additional Health Concerns Infection Onset Date Last Indicated Resolved Time Rule Out COVID-19 05/08/2021 05/08/2021 05/09/2021 9:08 PM TUBE MOUNTER Assessment Noted Time PHQ-9 Depression Total Score: 0 08/31/19 21 11:22 AM TUBE MOUNTER documented as of this encounter Care Teams Machine Sewer Relationship Specialty Start Date End Date Esperanza Gatica MD PCP - General Family Practice 10/13/11 12/29/21 Alfreda Ray PA-C [address] [place] [address] PCP - General Family Medicine 12/30/21 [place] [address] [place] [address] Assigned PCP 09/29/20 07/31/22 [place] [address] [place] [address] Assigned Musculoskeletal Provider 10/20/20 04/17/22 Alfreda Ray PA-C [address] [place] [address] Referring Physician Family Medicine 12/31/21 Katrin Orellana PA-C [address] [place] [address] Physician Builder Beam Dermatology 12/31/21 Shanna Vang PA-C [address] [address] Assigned Cancer Care Provider 01/10/22 Fransisco Eddy MD [address] [place] [address] Assigned Rheumatology Provider 05/09/22 [place] [address] [place] [address] Assigned Pain Medication Provider 06/29/22 09/04/22 [place] [address] [place] [address] Assigned PCP 08/15/22 08/28/22 Katrin Orellana PA-C [address] [place] [address] Assigned Surgical Provider 08/15/22 02/10/24 Cristina Hsieh [facility] 3[address] [facility] [place] [address] Pharmacist Pharmacist 09/07/22 Alfreda Ray PA-C [address] [place] [address] Assigned Pain Medication Provider 09/05/22 09/10/23 Alfreda Ray PA-C [address] [place] [address] Assigned PCP 08/29/22 Cristina Hsieh, [facility] [address] [place] [address] Assigned MTM Pharmacist 09/26/22 Dakota Tatum MD [address] [place] [address] Cardiovascular Disease 03/25/23 Dakota Tatum MD [address] [place] [address] Assigned Heart and Vascular Provider 05/01/23 [place] [address] CE[address] GASTELUM, [address] [address] Assigned Musculoskeletal Provider 04/12/24 documented as of this encounter
--- OUTSIDE RECORDS SUMMARY | 2024-07-28 14:27 | XMS_ITS | Encounter Summary ---
Author Organization [facility] Address [address] [place] [address] Care Team Providers Care Manager Produce Name Role Phone Alfreda aRy PA-C Primary Care Provider + Alfreda Ray PA-C Unavailable [phone] Katrin Orellana PA-C Unavailable [phone] Shanna Vang PA-C Unavailable +[phone] Fransisco Eddy MD Unavailable [phone] Katrin Orellana PA-C Unavailable [phone] Cristina Hsieh [facility] Unavailable +[phone] Alfreda Ray PA-C Unavailable + [phone] Alfreda Ray PA-C Unavailable + [phone] Cristina Hsieh [facility] Unavailable +[phone] Dakota Tatum MD Unavailable + [phone] Dakota Tatum MD Unavailable + [phone] Srinivas Marie DO Unavailable [phone] Encounter Details Date Type Department Care Team (Late st Contact Info) Description 07/21/2023 MyC Medical Advice [facility] [address] [place] [address] Gruendemann, Lecora Social History Tobacco Use [...] Sex Assigned at Female 08/17/2018 7:56 AM ANALYST GEOCHEMICAL PROSPECTING Legal Sex Female 4:24 AM ANALYST GEOCHEMICAL PROSPECTING Gender Identity Female 08/17/2018 7:56 AM ANALYST GEOCHEMICAL PROSPECTING Sexual Orientation Straight 08/17/2018 7: 56 AM ANALYST GEOCHEMICAL PROSPECTING documented as of this encounter Plan of Treatment Upcoming Encounters Date Type Department Care Team (Late st Contact Info) Description 09/07/2024 10:00 AM CDT Office Visit [facility] [place] 6525 [facility] 200 [place] [address] Fransisco Eddy MD [address] [place] [address] 88 [place] [address] 09/18/2024 2:00 PM CDT Virtual Visit [facility] [address] [place] [address] 105 [place] [address] Shanna Vang PA-C [address] [place] [address] 03/29/2025 3:40 PM CDT Office Visit [address] [address] Alfreda Ray PA-C [address] [place] [address] 661962 documented as of this encounter Visit Diagnoses Not on filedocumented in this encounter Additional Health Concerns Assessment Noted Time PHQ-9 Depression Total Score: 5 03/09/20 23 10:57 AM CDT documented as of this encounter Care Teams Manager Produce Relationship Specialty Start Date End Date Alfreda Ray PA-C [address] [place] [address] 289[address] PCP - General Family Medicine 12/30/21 Alfreda Ray PA-C [address] [place] [address] Referring Physician Family Medicine 12/31/21 Katrin Orellana PA-C 420 [facility] 98 [place], [place] 078205 Physician Hair Spring Cutter Dermatology 12/31/21 Shanna Vang PA-C [address] [place], [place] 694[address] Assigned Cancer Care Provider 01/10/22 Fransisco Eddy MD 515 [facility] 88 [place], [place] 513325 Assigned Rheumatology Provider 05/09/22 Katrin Orellana PA-C 420 [facility] 98 [place], [place] 052195 Assigned Surgical Provider 08/15/22 02/10/24 Cristina Hsieh [facility] 3305 [facility] [place]ETH [place] [address] Pharmacist Pharmacist 09/07/22 Alfreda Ray PA-C [address] [place] [address] 922272 Assigned Pain Medication Provider 09/05/22 09/10/23 Alfreda Ray PA-C [address] [place] [address] 489522 Assigned PCP 08/29/22 Cristina Hsieh [facility] [address] [address] Assigned MTM Pharmacist 09/26/22 Dakota Tatum MD 516 [place] [address] Cardiovascular Disease 03/25/23 Dakota Tatum MD 516 [place] [address] Assigned Heart and Vascular Provider 05/01/23 [place] [address] [facility], [address] [address] Assigned Musculoskeletal Provider 04/12/24 documented as of this encounter
--- OUTSIDE RECORDS SUMMARY | 2024-07-28 14:27 | XMS_ITS | Encounter Summary ---
Author Organization [place] Address [address] [place] [address]39 Care Team Providers Care Debit Agent Name Role Phone Alfreda Ray PA-C Primary Care Provider + Alfreda Ray PA-C Unavailable [phone] Katrin Orellana PA-C Unavailable +[phone] Shanna Vang PA-C Unavailable +[phone] Fransisco Eddy MD Unavailable +[phone] Katrin Orellana PA-C Unavailable +[phone] Cristina Hsieh [facility] Unavailable +[phone] Alfreda Ray PA-C Unavailable + [phone] Alfreda Ray PA-C Unavailable + [phone] Cristina Hsieh [facility] Unavailable +[phone] Dakota Tatum MD Unavailable + [phone] Dakota Tatum MD Unavailable + [phone] Srinivas Marie DO Unavailable Encounter Details Date Type Department Care Team (Late st Contact Info) Description 06/11/2023 [facility] Specialty [address] [address] Gloria Harper, RN Social History [...] Sex Assigned at Female 08/17/2018 7:56 AM COMPUTER SYSTEM VALIDATION SPECIALIST Legal Sex Female 4:24 AM COMPUTER SYSTEM VALIDATION SPECIALIST Gender Identity Female 08/17/2018 7:56 AM COMPUTER SYSTEM VALIDATION SPECIALIST Sexual Orientation Straight 08/17/2018 7: 56 AM COMPUTER SYSTEM VALIDATION SPECIALIST documented as of this encounter Plan of Treatment Upcoming Encounters Date Type Department Care Team (Late st Contact Info) Description 09/07/2024 10:00 AM CDT Office Visit [facility] [address] [facility] 200 [place] [phone] Fransisco Eddy MD [address] [place] [address] 88 [place] [address] 09/18/2024 2:00 PM CDT Virtual Visit [facility] [address] [facility] [address] [place] [phone] Shanna Vang PA-C [address] [place] [address] 03/29/2025 3:40 PM CDT Office Visit [address] [address] Alfreda Ray PA-C [address] [place] [address] 012592 documented as of this encounter Visit Diagnoses Not on filedocumented in this encounter Additional Health Concerns Assessment Noted Time PHQ-9 Depression Total Score: 5 03/09/20 23 10:57 AM CDT documented as of this encounter Care Teams Debit Agent Relationship Specialty Start Date End Date Alfreda Ray PA-C [address] [place] [address] PCP - General Family Medicine 12/30/21 Alfreda Ray PA-C [address] [place] [address]3492 Referring Physician Family Medicine 12/31/21 Katrin Orellana PA-C [address] [facility] 98 [place], [place] 175805 Physician Entrepreneurial Finance Professor Dermatology 12/31/21 Shanna Vang PA-C [address] [place] [address] 660924 Assigned Cancer Care Provider 01/10/22 Fransisco Eddy MD [address] [place] [address] 88 [place], [place] 829685 Assigned Rheumatology Provider 05/09/22 Katrin Orellana PA-C [address] 100[address] Assigned Surgical Provider 08/15/22 02/10/24 Cristina Hsieh [facility] [address] [facility] LISBETH HERNANDEZ [address] Pharmacist Pharmacist 09/07/22 Alfreda Ray PA-C [address] [place] [address] 932942 Assigned Pain Medication Provider 09/05/22 09/10/23 Alfreda Ray PA-C [address] [place] [address] 393882 Assigned PCP 08/29/22 Cristina Hsieh [facility] [address] [address] Assigned MTM Pharmacist 09/26/22 Dakota Tatum MD 516 [place] [address] Cardiovascular Disease 03/25/23 Dakota Tatum MD 6 [place] [address] Assigned Heart and Vascular Provider 05/01/23 [place] [address] CE[address] GASTELUM, [address] [address] Assigned Musculoskeletal Provider 04/12/24 documented as of this encounter
--- OUTSIDE RECORDS SUMMARY | 2024-07-28 14:27 | XMS_ITS | Encounter Summary ---
Author Organization [place] Address [address] [place] [address] Care Team Providers Care Iridologist Name Role Phone Alfreda Ray PA-C Primary Care Provider + Alfreda Ray PA-C Unavailable +[phone] Katrin Orellana PA-C Unavailable [phone] Shanna Vang PA-C Unavailable +[phone] Fransisco Eddy MD Unavailable +[phone] Katrin Orellana PA-C Unavailable [phone] Cristina Hsieh [facility] Unavailable +[phone] Alfreda Ray PA-C Unavailable + [phone] Alfreda Ray PA-C Unavailable + [phone] Cristina Hsieh [facility] Unavailable +[phone] Dakota Tatum MD Unavailable + [phone] Dakota Tatum MD Unavailable + [phone] Srinivas Marie DO Unavailable [phone] Encounter Details Date Type Department Care Team (Late st Contact Info) Description 09/09/2023 [facility] [address] [place] [address] Shanna Vang PA-C [address] [place] [address] Social History Tobacco Use Types Packs/Day Years [...] Sex Assigned at Female 08/17/2018 7:56 AM CAST SHELL GRINDER Legal Sex Female 4:24 AM CAST SHELL GRINDER Gender Identity Female 08/17/2018 7:56 AM CAST SHELL GRINDER Sexual Orientation Straight 08/17/2018 7: 56 AM CAST SHELL GRINDER documented as of this encounter Plan of Treatment Upcoming Encounters Date Type Department Care Team (Late st Contact Info) Description 09/07/2024 10:00 AM CDT Office Visit [facility] [address] 200 [place] [phone] Fransisco Eddy MD [address] [place] [address] 88 [place] [address] 09/18/2024 2:00 PM CDT Virtual Visit [facility] [place] [address] 105 [place] [address] Shanna Vang, FERNANDO [address] [address] 03/29/2025 3:40 PM CDT Office Visit [address] [address] Alfreda Ray PA-C [address] [place] [address] 722302 documented as of this encounter Visit Diagnoses Not on filedocumented in this encounter Additional Health Concerns Assessment Noted Time PHQ-9 Depression Total Score: 5 03/09/20 23 10:57 AM CDT documented as of this encounter Care Teams Iridologist Relationship Specialty Start Date End Date Alfreda Ray PA-C [address] [place] [address] 288782 PCP - General Family Medicine 12/30/21 Alfreda Ray PA-C [address] [place] [address] Referring Physician Family Medicine 12/31/21 Katrin Orellana PA-C [address] [place] [address] Physician Marketing Summer Intern Dermatology 12/31/21 Shanna Vang PA-C [address] [place] [address] Assigned Cancer Care Provider 01/10/22 Fransisco Eddy MD [address] [place] [address] Assigned Rheumatology Provider 05/09/22 Katrin Orellana PA-C [address] [place] [address] Assigned Surgical Provider 08/15/22 02/10/24 Cristina Hsieh [facility] [address] [place] [address] [place] [address] Pharmacist Pharmacist 09/07/22 Alfreda Ray PA-C [address] [place] [address] 1950[address] Assigned Pain Medication Provider 09/05/22 09/10/23 Alfreda Ray PA-C [address] [place] [address] Assigned PCP 08/29/22 Cristina Hsieh [facility] [address] [address] Assigned MTM Pharmacist 09/26/22 Dakota Tatum MD [address] [place] [address] Cardiovascular Disease 03/25/23 Dakota Tatum MD [address] [place] [address] Assigned Heart and Vascular Provider 05/01/23 [place] [address] CELE GASTELUM, [facility] 300 [place] [address] Assigned Musculoskeletal Provider 04/12/24 documented as of this encounter
--- OUTSIDE RECORDS SUMMARY | 2024-07-28 14:27 | XMS_ITS | Encounter Summary ---
Author Organization [place] Address [address] [place] [address] Care Team Providers Care Turf Manager Name Role Phone Alfreda Ray PA-C Primary Care Provider + Alfreda Ray PA-C Unavailable [phone] Katrin Orellana PA-C Unavailable [phone] Shanna Vang PA-C Unavailable +[phone] Fransisco Eddy MD Unavailable +[phone] Katrin Orellana PA-C Unavailable [phone] Cristina Hsieh [facility] Unavailable +[phone] Alfreda Ray PA-C Unavailable + [phone] Alfreda Ray PA-C Unavailable [phone] Cristina Hsieh [facility] Unavailable [phone] Dakota Tatum MD Unavailable + [phone] Dakota Tatum MD Unavailable + [phone] Srinivas Marie DO Unavailable [phone] Reason for Visit * Reason Comments Medication Refill METHOTREXATE 50 MG/2 ML VIAL Encounter Details Date Type Department Care Team (Late st Contact Info) Description 06/20/2023 Refill [facility] Specialty [address] [address] Fransisco Eddy MD [address] [place] [address] [phone] Medication Refill (METHOTREXATE 50 MG/2 ML VIAL) [...] Assigned at Female 08/17/2018 7:56 AM DENTAL LABORATORY TECHNICIAN Legal Sex Female 4:24 AM DENTAL LABORATORY TECHNICIAN Gender Identity Female 08/17/2018 7:56 AM DENTAL LABORATORY TECHNICIAN Sexual Orientation Straight 08/17/2018 7: 56 AM DENTAL LABORATORY TECHNICIAN documented as of this encounter Miscellaneous Notes * Telephone Encounter - Fransisco Eddy MD - 06/25/2023 5:14 PM DENTAL LABORATORY TECHNICIAN Apologize for confusion engendered by last note and clinic visit. I expected methotrexate to have been discontinued now that patient is receiving Actemra. [place] LABORATORY TECHNICIAN * Telephone Encounter - Lynne Levy RN - 06/25/2023 1:34 PM CST METHOTREXATE 50 MG/2 ML VIAL Last Written Prescription Date: not on active med list Discontinued Therapy completed (No AVS) Cristina Hsieh, [facility] 03/04/23 1338 Last Office Visit: [...] documentation of discontinue med found in note. [place] LABORATORY TECHNICIAN documented in this encounter Plan of Treatment Upcoming Encounters Date Type Department Care Team (Late st Contact Info) Description 09/07/2024 10:00 AM CDT Office Visit [facility] [address] 200 [place] [address] Fransisco Eddy MD [address] [place] [address] 099805 09/18/2024 2:00 PM CDT Virtual Visit [facility] [address] 105 [place] [phone] Shanna Vang PA-C [address] [address] 03/29/2025 3:40 PM CDT Office Visit [address] [place] [address] Alfreda Ray PA-C [address] [place] [address] 704082 documented as of this encounter Visit Diagnoses Not on filedocumented in this encounter Additional Health Concerns Assessment Noted Time PHQ-9 Depression Total Score: 5 03/09/20 23 10:57 AM CDT documented as of this encounter Care Teams Turf Manager Relationship Specialty Start Date End Date Alfreda Ray PA-C [address] [place] [address] PCP - General Family Medicine 12/30/21 Alfreda Ray PA-C [address] [place] [address] Referring Physician Family Medicine 12/31/21 Katrin Orellana PA-C [address] [place] [address] [phone] Physician Key Account Executive Dermatology 12/31/21 Shanna Vang PA-C [address] [place], [place] 184684 Assigned Cancer Care Provider 01/10/22 Fransisco Eddy MD [address] [place] [address] 574465 Assigned Rheumatology Provider 05/09/22 Katrin Orellana PA-C [address] [place] [address] 451955 Assigned Surgical Provider 08/15/22 02/10/24 Cristina Hsieh [facility] [address] [place] [address] Pharmacist Pharmacist 09/07/22 Alfreda Ray PA-C [address] [place] [address] Assigned Pain Medication Provider 09/05/22 09/10/23 Alfread aRy PA-C [address] [place] [address] Assigned PCP 08/29/22 Cristina Hsieh, [facility] [address] [place] [address] Assigned MTM Pharmacist 09/26/22 Dakota Tatum MD [address] [place] [address] Cardiovascular Disease 03/25/23 Dakota Tatum MD [address] [place] [address] Assigned Heart and Vascular Provider 05/01/23 [place] [address] [address] Assigned Musculoskeletal Provider 04/12/24 documented as of this encounter
--- OUTSIDE RECORDS SUMMARY | 2024-07-28 14:27 | XMS_ITS | Encounter Summary ---
Author Organization [place] Address [address] [place] [address] Care Team Providers Care Shuttle Inspector Name Role Phone Esperanza Gatica MD Primary Care Provider + Esperanza Gatica MD Unavailable + Jesús Orourke MD Unavailable Alfreda Ray-C Primary Care Provider + Alfreda RayC Unavailable +[phone] Katrin Orellana PA-C Unavailable +[phone] Shanna Vang PA-C Unavailable +[phone] Fransisco Eddy MD Unavailable +[phone] Esperanza Gatica MD Unavailable + Esperanza Gatica MD Unavailable + Katrin OrellanaC Unavailable +[phone] Cristina Hsieh [facility] Unavailable +[phone] Alfreda Ray PA-C Unavailable +[phone] Alfreda Ray PA-C Unavailable +[phone] Cristina Hsieh [facility] Unavailable [phone] Dakota Tatum MD Unavailable Dakota Tatum MD Unavailable + [phone] Srinivas Marie DO Unavailable [phone] Reason for Visit * Reason Onset Date Comments MyChart Communication 11/26/2020 Encounter Details Date Type Department Care Team ([facility] Contact Info) Description 11/26/2020 MyC Medical Advice [facility] Sports Medicine [facility] [address] [facility] [address] [place], [place] [address] Jesú[place] [address] [facility] [address] [address] [place] [address] MyChart Communication Social History Tobacco Use Types [...] Assigned at Female 08/17/2018 7:56 AM ASSOCIATE DIRECTOR FINANCE Legal Sex Female 4:24 AM ASSOCIATE DIRECTOR FINANCE Gender Identity Female 08/17/2018 7:56 AM ASSOCIATE DIRECTOR FINANCE Sexual Orientation Straight 08/17/2018 7: 56 AM ASSOCIATE DIRECTOR FINANCE COVID-19 Exposure Response Date Recorded In the last month, have you been in contact with someone who was confirmed or suspected to have Coronavirus / COVID-19? No / Unsure 11/12/2020 1:17 PM CDT documented as of this encounter Plan of Treatment Upcoming Encounters Date Type Department Care Team (Late Contact Info) Description 09/07/2024 10:00 AM CDT Office Visit [facility] [address] 200 [place] [address] Fransisco Eddy MD [address] [place] [address] 88 [place], [place] 0[address]75 09/18/2024 2:00 PM CDT Virtual Visit [facility] [address] [place] [address] 105 [place] [address] Shanna Vang PA-C [address] [place] [address] 03/29/2025 3:40 PM CDT Office Visit [address] [phone] Alfreda Ray PA-C [address] [place] [address] 277842 documented as of this encounter Visit Diagnoses Not on filedocumented in this encounter Additional Health Concerns Infection Onset Date Last Indicated Resolved Time Rule Out COVID-19 05/08/2021 05/08/2021 05/09/2021 9:08 PM ASSOCIATE DIRECTOR FINANCE Assessment Noted Time PHQ-9 Depression Total Score: 0 08/31/19 21 11:22 AM ASSOCIATE DIRECTOR FINANCE documented as of this encounter Care Teams Shuttle Inspector Relationship Specialty Start Date End Date Esperanza Gatica MD PCP - General Family Practice 10/13/11 12/29/21 Alfreda Ray PA-C [address] [place] [address] [phone] PCP - General Family Medicine 12/30/21 [place] [address] [place] [address] Assigned PCP 09/29/20 07/31/22 Jesú[place] [address] [place]ETH G[place] [address] Assigned Musculoskeletal Provider 10/20/20 04/17/22 Alfreda Ray PA-C [address] [place] [address] 591762 Referring Physician Family Medicine 12/31/21 Ktarin Orellana PA-C [address] [place] [address] 785975 Physician Electrotyper Dermatology 12/31/21 Shanna Vang PA-C [address] [place] [address] 307104 Assigned Cancer Care Provider 01/10/22 rFansisco Eddy MD [address] [place] [address] 104655 Assigned Rheumatology Provider 05/09/22 [place] [address] [address]ARCIA [address] Assigned Pain Medication Provider 06/29/22 09/04/22 [place] [address] [address]ARCIA [address] Assigned PCP 08/15/22 08/28/22 Katrin Orellana PA-C [address] [place] [address] 048515 Assigned Surgical Provider 08/15/22 02/10/24 Cristina Hsieh [facility] 3[address] [facility] LISBETH HERNANDEZ [address] Pharmacist Pharmacist 09/07/22 Alfreda Ray PA-C [address] [place] [address] Assigned Pain Medication Provider 09/05/22 09/10/23 Alfreda Ray PA-C [address] [place] [address]15 Assigned PCP 08/29/22 Cristina Hsieh, [facility] [address] [address] Assigned MTM Pharmacist 09/26/22 Dakota Tatum MD [address] [place] [address] Cardiovascular Disease 03/25/23 Dakota Tatum MD [address] [place] [address] Assigned Heart and Vascular Provider 05/01/23 [place] [address] [facility], [address] [address] Assigned Musculoskeletal Provider 04/12/24 documented as of this encounter
--- OUTSIDE RECORDS SUMMARY | 2024-07-28 14:27 | XMS_ITS | Encounter Summary ---
Author Organization [place] Address [address] [place] [address] Care Team Providers Care Supervisor Finishing Department Name Role Phone Esperanza Gatica MD Primary Care Provider + Esperanza Gatica MD Unavailable + Jesús Orourke MD Unavailable Alfreda Ray-C Primary Care Provider + Alfreda RayC Unavailable +[phone] Katrin Orellana PA-C Unavailable +[phone] Shanna Vang PA-C Unavailable +[phone] Fransisco Eddy MD Unavailable +[phone] Esperanza Gatica MD Unavailable + Esperanza Gatica MD Unavailable + Katrin OrellanaC Unavailable +[phone] Cristina Hsieh [facility] Unavailable +[phone] Alfreda Ray PA-C Unavailable +[phone] Alfreda Ray PA-C Unavailable +[phone] Cristina Hsieh [facility] Unavailable +[phone] Dakota Tatum MD Unavailable Dakota Tatum MD Unavailable +[phone] Srinivas Marie DO Unavailable [phone] Encounter Details Date Type Department Care Team (Late Contact Info) Description 01/02/2021 MyC Medical Advice [facility] [address] [place] [address] [place] [address] [place] [address] Social History Tobacco Use Types [...] Sex Assigned at Female 08/17/2018 7:56 AM CYTOLOGY TEACHER Legal Sex Female 4:24 AM CYTOLOGY TEACHER Gender Identity Female 08/17/2018 7:56 AM CYTOLOGY TEACHER Sexual Orientation Straight 08/17/2018 7: 56 AM CYTOLOGY TEACHER COVID-19 Exposure Response Date Recorded In the last month, have you been in contact with someone who was confirmed or suspected to have Coronavirus / COVID-19? No / Unsure 12/31/2020 8:35 AM CDT documented as of this encounter Plan of Treatment Upcoming Encounters Date Type Department Care Team (Late Contact Info) Description 09/07/2024 10:00 AM CDT Office Visit [facility] [place] [address]25 [facility] 200 [place] [address] Fransisco Eddy MD [address] [place] [address] 88 [place] [address] 09/18/2024 2:00 PM CDT Virtual Visit [facility] [address] 105 [place] [address] Shanna Vang PA-C [address] [place] [address] 03/29/2025 3:40 PM CDT Office Visit [address] [address] Alfreda Ray PA-C [address] [place] [address] 834022 documented as of this encounter Visit Diagnoses Not on filedocumented in this encounter Additional Health Concerns Infection Onset Date Last Indicated Resolved Time Rule Out COVID-19 05/08/2021 05/08/2021 05/09/2021 9:08 PM CYTOLOGY TEACHER Assessment Noted Time PHQ-9 Depression Total Score: 0 08/31/19 21 11:22 AM CYTOLOGY TEACHER documented as of this encounter Care Teams Supervisor Finishing Department Relationship Specialty Start Date End Date Esperanza Gatica MD PCP - General Family Practice 10/13/11 12/29/21 Alfreda Ray PA-C [address] [place] [address] PCP - General Family Medicine 12/30/21 [place] [address] [place] [address] Assigned PCP 09/29/20 07/31/22 [place] [address] [place] [address] Assigned Musculoskeletal Provider 10/20/20 04/17/22 Alfreda Ray PA-C [address] [place] [address] Referring Physician Family Medicine 12/31/21 Katrin Orellana PA-C [address] [place] [address] Physician Metallurgy Laboratory Technician Dermatology 12/31/21 Shanna Vang PA-C [address] [address] Assigned Cancer Care Provider 01/10/22 Fransisco Eddy MD [address] [place] [address] Assigned Rheumatology Provider 05/09/22 [place] [address] [place] [address] Assigned Pain Medication Provider 06/29/22 09/04/22 [place] [address] [place] [address] Assigned PCP 08/15/22 08/28/22 Katrin Orellana PA-C [address] [place] [address] Assigned Surgical Provider 08/15/22 02/10/24 Cristina Hsieh [facility] [address] [facility] LISBETH HERNANDEZ [address] Pharmacist Pharmacist 09/07/22 Alfreda Ray PA-C [address] [place] [address] Assigned Pain Medication Provider 09/05/22 09/10/23 Alfreda Ray PA-C [address] [place] [address] Assigned PCP 08/29/22 Cristina Hsieh, [facility] [address] [place] [address] Assigned MTM Pharmacist 09/26/22 Dakota Tatum MD [address] [place] [address] Cardiovascular Disease 03/25/23 Dakota Tatum MD [address] [place] [address] Assigned Heart and Vascular Provider 05/01/23 [place] [address] CELE GASTELUM, [address] [address] Assigned Musculoskeletal Provider 04/12/24 documented as of this encounter
--- OUTSIDE RECORDS SUMMARY | 2024-07-28 14:27 | XMS_ITS | Encounter Summary ---
Author Organization [facility] Address [address] [place] [address] 16735 Care Team Providers Care Mixing Roll Operator Name Role Phone Esperanza Gatica MD Primary Care Provider + Esperanza Gatica MD Unavailable + Jesús Orourke MD Unavailable Alfreda Ray-C Primary Care Provider + Alfreda RayC Unavailable +[phone] Katrin Orellana PA-C Unavailable +[phone] Shanna Vang PA-C Unavailable +[phone] Fransisco Eddy MD Unavailable +[phone] Esperanza Gatica MD Unavailable + Esperanza Gatica MD Unavailable + Katrin OrellanaC Unavailable +[phone] Cristina Hsieh [facility] Unavailable +[phone] Alfreda Ray PA-C Unavailable +[phone] Alfreda Ray PA-C Unavailable +[phone] Cristina Hsieh [facility] Unavailable +[phone] Dakota Tatum MD Unavailable Dakota Tatum MD Unavailable +[phone] Srinivas Marie Unavailable [phone] Encounter Details Date Type Department Care Team (Late Contact Info) Description 11/28/2020 MyC Medical Advice [facility] Rehabilitation [facility] Cecilia [address] [place] [address] 160 [place] [address] [place] [address] [place] [address] Social History Tobacco Use Types Packs/Day Years [...] Assigned at Female 08/17/2018 7:56 AM FREIGHT CAR BUILDER Legal Sex Female 4:24 AM FREIGHT CAR BUILDER Gender Identity Female 08/17/2018 7:56 AM FREIGHT CAR BUILDER Sexual Orientation Straight 08/17/2018 7: 56 AM FREIGHT CAR BUILDER COVID-19 Exposure Response Date Recorded In the [...] [facility] Special[facility] [address] [facility] 200 [place] [phone] Fransisco Eddy MD [address] [place] [address] 88 [place] [address] 09/18/2024 2:00 PM CDT Virtual Visit [facility] [address] 105 [place] [address] Shanna Vang PA-C [address] [place] [address] 03/29/2025 3:40 PM CDT Office Visit [address] [address] Alfreda Ray PA-C [address] [place] [address] 127042 documented as of this encounter Visit Diagnoses Not on filedocumented in this encounter Additional Health Concerns Infection Onset Date Last Indicated Resolved Time Rule Out COVID-19 05/08/2021 05/08/2021 05/09/2021 9:08 PM FREIGHT CAR BUILDER Assessment Noted Time PHQ-9 Depression Total Score: 0 08/31/19 21 11:22 AM FREIGHT CAR BUILDER documented as of this encounter Care Teams Mixing Roll Operator Relationship Specialty Start Date End Date Esperanza Gatica MD PCP - General Family Practice 10/13/11 12/29/21 Alfreda Ray PA-C [address] [place] [address] 406682 PCP - General Family Medicine 12/30/21 [place] [address] [place] [address] Assigned PCP 09/29/20 07/31/22 Jesú[place] [address] [place] [address] Assigned Musculoskeletal Provider 10/20/20 04/17/22 Alfreda Ray PA-C [address] [place] [address] Referring Physician Family Medicine 12/31/21 Katrin Orellana PA-C [address] [place] [address] Physician Feed Preparation Operator Dermatology 12/31/21 Shanna Vang PA-C [address] [place] [address] Assigned Cancer Care Provider 01/10/22 Fransisco Eddy MD [address] [place] [address] Assigned Rheumatology Provider 05/09/22 [place] [address] [facility] [place] [address] Assigned Pain Medication Provider 06/29/22 09/04/22 [place] [address] [place] [address] Assigned PCP 08/15/22 08/28/22 Katrin Orellana PA-C [address] [place] [address] Assigned Surgical Provider 08/15/22 02/10/24 Cristina Hsieh [facility] [address] [place] [address] [place] [address] Pharmacist Pharmacist 09/07/22 Alfreda Ray PA-C [address] [place] [address], [place] [address] Assigned Pain Medication Provider 09/05/22 09/10/23 Alfreda Ray PA-C [address] [place] [address] Assigned PCP 08/29/22 Cristina Hsieh, [facility] [address] [place] [address] Assigned MTM Pharmacist 09/26/22 Dakota Tatum MD [address] [place] [address] Cardiovascular Disease 03/25/23 Dakota Tatum MD [address] [place] [address] Assigned Heart and Vascular Provider 05/01/23 [place] [address] CELE GASTELUM, [address] [address] Assigned Musculoskeletal Provider 04/12/24 documented as of this encounter
--- OUTSIDE RECORDS SUMMARY | 2024-07-28 14:27 | XMS_ITS | Encounter Summary ---
Author Organization [facility] Address [address] [place] [address] Care Team Providers Care Roving Sizer Name Role Phone Alfreda Ray PA-C Primary Care Provider + Alfreda Ray PA-C Unavailable +[phone] Katrin Orellana PA-C Unavailable [phone] Shanna Vang PA-C Unavailable +[phone] Fransisco Eddy MD Unavailable +[phone] Katrin Orellana PA-C Unavailable +[phone] Cristina Hsieh [facility] Unavailable [phone] Alfreda Ray PA-C Unavailable + [phone] Alfreda Ray PA-C Unavailable +[phone] Cristina Hsieh [facility] Unavailable [phone] Dakota Tatum MD Unavailable + [phone] Dakota Tatum MD Unavailable + [phone] Srinivas Marie DO Unavailable [phone] Reason for Visit * Reason Onset Date Comments [facility] 07/24/2023 Encounter Details Date Type Department Care Team (Late st Contact Info) Description 07/24/2023 [facility] [address] [phone] Alfreda Ray PA-C [address] [place], [place] [phone] [facility] Social History Tobacco Use Types [...] an overnight senior living, or couch-surfing.) Yes 05/18/2023 Are you worried [...] Sex Assigned at Female 08/17/2018 7:56 AM LAB MANAGER Legal Sex Female 4:24 AM LAB MANAGER Gender Identity Female 08/17/2018 7:56 AM LAB MANAGER Sexual Orientation Straight 08/17/2018 7: 56 AM LAB MANAGER documented as of this encounter Miscellaneous Notes * Telephone Encounter - Idania Stokes - 07/29/2023 11:40 AM CST Talked to patient who set up a virtual to do form with provider. VV was set up 08/19/23 Idania Mcmahon MANAGER * Telephone Encounter - Sarina Stevens - 07/29/2023 11:05 AM CST [employer] message sent to patient advising of Alfreda Ray's message below. MANAGER * Telephone Encounter - Alfreda Ray PA-C - 07/28/2023 4:46 PM LAB MANAGER Images from the original note were not included. Video or in person visit to document & complete paperwork. Please assist with scheduling. Can mail to her to take to DMV or mail in. Alfreda Ray MBA, MS, [facility] MANAGER * Telephone Encounter - Fadumo Storey RN - 07/27/2023 12:58 PM CST Please see my chart message and advise. Thanks Does patient need appointment? In person or virtual? Last office visit was 05/25/23 MANAGER documented in this encounter Plan of Treatment Upcoming Encounters Date Type Department Care Team (Late st Contact Info) Description 09/07/2024 10:00 AM CDT Office Visit [facility] [address] [place] [phone] Fransisco Eddy MD [address] [facility] 88 [place] [address] 09/18/2024 2:00 PM CDT Virtual Visit [facility] [address] [place] [address] 105 [place] [phone] Shanna Vang PA-C [address] [place] [address] 03/29/2025 3:40 PM CDT Office Visit [address] [phone] Alfreda Ray PA-C [address] [place] [address] documented as of this encounter Visit Diagnoses Not on filedocumented in this encounter Additional Health Concerns Assessment Noted Time PHQ-9 Depression Total Score: 5 03/09/20 23 10:57 AM CDT documented as of this encounter Care Teams Roving Sizer Relationship Specialty Start Date End Date Alfreda Ray PA-C [address] [place] [address] PCP - General Family Medicine 12/30/21 Alfreda Ray PA-C [address] [place] [address] Referring Physician Family Medicine 12/31/21 Katrin Orellana PA-C [address] [place] [address] 98 [place] [address] Physician Vp Patient Dermatology 12/31/21 Shanna Vang PA-C [address] [place] [address] Assigned Cancer Care Provider 01/10/22 Fransisco Eddy MD [address] [facility] 88 [place] [address] Assigned Rheumatology Provider 05/09/22 Katrin Orellana PA-C [address] [place] [address] 98 [place], [place] 456255 Assigned Surgical Provider 08/15/22 02/10/24 Cristina Hsieh [facility] [address] [place] [address] Pharmacist Pharmacist 09/07/22 Alfreda Ray PA-C [address] [place] [address] 182162 Assigned Pain Medication Provider 09/05/22 09/10/23 Alfreda Ray PA-C [address] [place] [address] 995352 Assigned PCP 08/29/22 Cristina Hsieh [facility] [address] [address] Assigned MTM Pharmacist 09/26/22 Dakota Tatum MD 516 [place] [address] Cardiovascular Disease 03/25/23 Dakota Tatum MD [address] [place] [address] Assigned Heart and Vascular Provider 05/01/23 [place] [address] [facility], [address] [address] Assigned Musculoskeletal Provider 04/12/24 documented as of this encounter
--- OUTSIDE RECORDS SUMMARY | 2024-07-28 14:28 | XMS_ITS | Encounter Summary ---
Author Organization [facility] Address [address] [place] [address] Care Team Providers Care Golf Course Mechanic Name Role Phone Alfreda Ray PA-C Primary Care Provider + Alfreda Ray PA-C Unavailable [phone] Katrin Orellana PA-C Unavailable [phone] Shanna Vang PA-C Unavailable +[phone] Fransisco Eddy MD Unavailable [phone] Katrin Orellana PA-C Unavailable [phone] Cristina Hsieh [facility] Unavailable [phone] Alfreda Ray PA-C Unavailable +[phone] Cristina Hsieh [facility] Unavailable [phone] Dakota Tatum MD Unavailable [phone] Dakota Tatum MD Unavailable [phone] Srinivas Marie DO Unavailable [phone] Encounter Details Date Type Department Care Team (Late st Contact Info) Description 11/09/2023 [facility] [address] [address] Cristina Hsieh, [facility] [address] [address] Social History Tobacco Use Types [...] Assigned at Female 08/17/2018 7:56 AM MANAGER PRINT Legal Sex Female 4:24 AM MANAGER PRINT Gender Identity Female 08/17/2018 7:56 AM MANAGER PRINT Sexual Orientation Straight 08/17/2018 7: 56 AM MANAGER PRINT documented as of this encounter Plan of Treatment Upcoming Encounters Date Type Department Care Team (Late st Contact Info) Description 09/07/2024 10:00 AM CDT Office Visit [facility] [place] [address] [place] [address] 200 [place] [address] Fransisco Eddy MD [address] [place] [address] 88 [place] [address] 09/18/2024 2:00 PM CDT Virtual Visit [facility] [address] [place] [address] 105 [place] [address] Shanna Vang PA-C [address] [place] [address] 03/29/2025 3:40 PM CDT Office Visit [address] [phone] Alfreda Ray PA-C [address] [place] [address] documented as of this encounter Visit Diagnoses Not on filedocumented in this encounter Additional Health Concerns Assessment Noted Time PHQ-9 Depression Total Score: 5 03/09/20 23 10:57 AM CDT documented as of this encounter Care Teams Golf Course Mechanic Relationship Specialty Start Date End Date Alfreda Ray PA-C [address] [place] [address] PCP - General Family Medicine 12/30/21 Alfreda Ray PA-C [address] [place] [address] Referring Physician Family Medicine 12/31/21 Katrin Orellana PA-C [address] [facility] 98 [place], [place] 434[address] Physician Alcohol Law Enforcement Agent Dermatology 12/31/21 Shanna Vang PA-C [address] [place], [place] 481364 Assigned Cancer Care Provider 01/10/22 Fransisco Eddy MD [address] [address] Assigned Rheumatology Provider 05/09/22 Katrin Orellana PA-C [address] 222685 Assigned Surgical Provider 08/15/22 02/10/24 Cristina Hsieh [facility] [address] [place] [phone] Pharmacist Pharmacist 09/07/22 Alfreda Ray PA-C [address] [place] [address] 466322 Assigned PCP 08/29/22 Cristina Hsieh [facility] [address] [id number] Assigned MTM Pharmacist 09/26/22 Dakota Tatum MD 516 [place] [address] Cardiovascular Disease 03/25/23 Dakota Tatum MD [address] [place] [address] Assigned Heart and Vascular Provider 05/01/23 [place] [address] CELE GASTELUM, [address] [address] Assigned Musculoskeletal Provider 04/12/24 documented as of this encounter
--- OUTSIDE RECORDS SUMMARY | 2024-07-28 14:28 | XMS_ITS | Encounter Summary ---
Author Organization [facility] Address [address] [place] [address] Care Team Providers Care Finisher Hot Strip Name Role Phone Esperanza Gatica MD Primary Care Provider + Esperanza Gatica MD Unavailable +[phone] Esperanza Gatica MD Unavailable +[phone] Esperanza Gatica MD Unavailable +[phone] Esperanza Gatica MD Unavailable +[phone] Esperanza Gatica MD Unavailable +[phone] Esperanza Gatica MD Unavailable [phone] Jesús Orourke MD Unavailable Alfreda RayC Primary Care Provider + Alfreda Ray PA-C Unavailable + [phone] Katrin Orellana PA-C Unavailable +[phone] Shanna VangC Unavailable +[phone] Fransisco Eddy MD Unavailable [phone] Esperanza Gatica MD Unavailable +[phone] Esperanza Gatica MD Unavailable +[phone] Katrin Orellana PA-C Unavailable Cristina Hsieh [facility] Unavailable Cory Alfreda Liu PA-C Unavailable +[phone] Cory Alfreda Liu PA-C Unavailable +[phone] Cristina Hsieh [facility] Unavailable [phone] Dakota Tatum MD Unavailable [phone] Dakota Tatum MD Unavailable [phone] Srinivas Marie DO Unavailable [phone] Reason for Visit * Reason Onset Date Comments Refill Request 09/11/2015 Lisinopril-HCTZ Encounter Details Date Type Department Care Team (Late st Contact Info) Description 09/11/2015 MyC Refill [address], [address] [place] [address] [place] [address] [place] [address] Refill Request (Lisinopril-HCTZ) Social History [...] Assigned at Female 08/17/2018 7:56 AM ELECTRONIC GLUING MACHINE OPERATOR Legal Sex Female 4:24 AM ELECTRONIC GLUING MACHINE OPERATOR Gender Identity Female 08/17/2018 7:56 AM ELECTRONIC GLUING MACHINE OPERATOR Sexual Orientation Straight 08/17/2018 7: 56 AM ELECTRONIC GLUING MACHINE OPERATOR documented as of this encounter Miscellaneous Notes * Telephone Encounter - Leigha Rinaldi RN - 09/11/2015 11:44 AM CDT Lisinopril-HCTZ Last Written Prescription Date: 08/13/2015 Last Fill Quantity: 90, # refills: 1 Last Office Visit with [facility], [facility] or [facility] prescribing provider: 08/13/2015 POTASSIUM Date Value Ref Range Status 08/13/2015 3.9 3.4 - 5.3 mmol/L Final CREATININE Date Value Ref Range Status 08/13/2015 0.87 0.52 - 1.04 mg/dL Final BP Readings from Last 3 Encounters: 08/13/15 136/66 04/08/15 112/60 12/06/14 126/64 Leigha Rinaldi RN * Telephone Encounter - Leigha Rinaldi RN - 09/11/2015 11:44 AM [facility] Original authorizing provider: MD Alexandria Brannon would like a refill of the following medications: lisinopril-hydrochlorothiazide (PRINZIDE,ZESTORETIC) 10-12.5 MG per tablet [Esperanza Gatica MD] Preferred pharmacy: [facility] - [address] Comment: documented in this encounter Plan of Treatment Upcoming Encounters Date Type Department Care Team (Late st Contact Info) Description 09/07/2024 10:00 AM CDT Office Visit [facility] [address] 200 [place] [phone] Fransisco Eddy MD [address] [place] [address] 88 [place], [place] 216075 09/18/2024 2:00 PM CDT Virtual Visit [facility] [place] [address] 105 [place] [address] Shanna Vang, PA-C [address] [address] 03/29/2025 3:40 PM CDT Office Visit [address] [phone] Alfreda Ray PA-C [address] [place] [address] documented as of this encounter Visit Diagnoses Diagnosis HTN (hypertension), benign Essential hypertension, benign documented in this encounter Additional Health Concerns Infection Onset Date Last Indicated Resolved Time Rule Out COVID-19 05/08/2021 05/08/2021 05/09/2021 9:08 PM ELECTRONIC GLUING MACHINE OPERATOR Assessment Noted Time PHQ-9 Depression Total Score: 0 08/14/19 16 8:10 AM ELECTRONIC GLUING MACHINE OPERATOR documented as of this encounter Care Teams Finisher Hot Strip Relationship Specialty Start Date End Date Esperanza Gatica MD PCP - General Family Practice 10/13/11 12/29/21 [place] [address] [address] [address] PCP - Assigned PCP 12/05/17 08/23/18 Alfreda Ray PA-C [address] [place] [address] PCP - General Family Medicine 12/30/21 [place] [address] [address] [address] Assigned PCP 12/05/17 09/30/19 [place] [address] [address] [address] Assigned PCP 10/01/19 03/02/20 [place] [address] [address] [address] Assigned PCP 03/03/20 05/25/20 [place] [address] [place] [address] Assigned PCP 05/26/20 09/28/20 [place] [address] [place] [address] Assigned PCP 09/29/20 07/31/22 Jesú[place] [address] [facility] [place], [place] [address] Assigned Musculoskeletal Provider 10/20/20 04/17/22 Alfreda Ray PA-C [address] [place] [address] Referring Physician Family Medicine 12/31/21 Katrin Orellana PA-C [address] [place] [address] Physician Stem Shaper Dermatology 12/31/21 Shanna Vang PA-C [facility] [address] [address] Assigned Cancer Care Provider 01/10/22 Fransisco Eddy MD [address] [place] [address] 561025 Assigned Rheumatology Provider 05/09/22 [place] [address] [place] [address] Assigned Pain Medication Provider 06/29/22 09/04/22 [place] [address] [place] [address] Assigned PCP 08/15/22 08/28/22 Katrin Orellana PA-C [address] [place] [address] 376795 Assigned Surgical Provider 08/15/22 02/10/24 [place] [address] [place] [address] [place] [address] Pharmacist Pharmacist 09/07/22 Alfreda Ray PA-C [address] [place] [address] Assigned Pain Medication Provider 09/05/22 09/10/23 Alfreda Ray PA-C [address] [place] [address] 981262 Assigned PCP 08/29/22 Cristina Hsieh [facility] [address] [place] [address] Assigned MTM Pharmacist 09/26/22 Dakota Tatum MD [address] [place] [address] 195655 Cardiovascular Disease 03/25/23 Dakota Tatum MD [address] [place] [address] 525865 Assigned Heart and Vascular Provider 05/01/23 [place] [address] CELE GASTELUM, [address] 495337 Assigned Musculoskeletal Provider 04/12/24 documented as of this encounter
--- OUTSIDE RECORDS SUMMARY | 2024-07-28 14:28 | XMS_ITS | Encounter Summary ---
Author Organization [facility] Address [address] [place] [address] Care Team Providers Care Raise Miner Name Role Phone Esperanza Gatica MD Primary Care Provider + Esperanza Gatica MD Unavailable +[phone] Esperanza Gatica MD Unavailable +[phone] Esperanza Gatica MD Unavailable +[phone] Esperanza Gatica MD Unavailable +[phone] Esperanza Gatica MD Unavailable +[phone] Esperanza Gatica MD Unavailable +[phone] Jesús Orourke MD Unavailable Alfreda RayC Primary Care Provider + Alfreda Ray PA-C Unavailable + [phone] Katrin Orellana PA-C Unavailable +[phone] Shanna VangC Unavailable +[phone] Fransisco Eddy MD Unavailable +[phone] Esperanza Gatica MD Unavailable +[phone] Esperanza Gatica MD Unavailable +[phone] Katrin Orellana PA-C Unavailable Cristina Hsieh [facility] Unavailable Alfreda Ray PA-C Unavailable Ray, Alfreda Liu PA-C Unavailable [phone] Cristina Hsieh [facility] Unavailable Dakota Tatum MD Unavailable Dakota Tatum MD Unavailable Srinivas Marie Unavailable [phone] Encounter Details Date Type Department Care Team (Late st Contact Info) Description 02/27/2015 MyC Medical Advice [address], [address] [place] [address] Fartun Silveira Social History Tobacco [...] Assigned at Female 08/17/2018 7:56 AM CLINICAL DATA ASSISTANT Legal Sex Female 4:24 AM CLINICAL DATA ASSISTANT Gender Identity Female 08/17/2018 7:56 AM CLINICAL DATA ASSISTANT Sexual Orientation Straight 08/17/2018 7: 56 AM CLINICAL DATA ASSISTANT documented as of this encounter Plan of Treatment Upcoming Encounters Date Type Department Care Team (Late Contact Info) Description 09/07/2024 10:00 AM CDT Office Visit [facility] [address] [place] [address] Fransisco Eddy MD [address] [place] [address] 88 [place] [address] 09/18/2024 2:00 PM CDT Virtual Visit [facility] [facility] [address] [place] [address] Shanna Vang PA-C [facility] . [address] [place] [address] 03/29/2025 3:40 PM CDT Office Visit [facility] [address] [place] [address] Alfreda Ray PA-C [address] [place] [address] documented as of this encounter Visit Diagnoses Not on filedocumented in this encounter Additional Health Concerns Infection Onset Date Last Indicated Resolved Time Rule Out COVID-19 05/08/2021 05/08/2021 05/09/2021 9:08 PM CLINICAL DATA ASSISTANT documented as of this encounter Care Teams Raise Miner Relationship Specialty Start Date End Date Esperanza Gatica MD PCP - General Family Practice 10/13/11 12/29/21 [place] [address] LISBETH GARCIA [address] PCP - Assigned PCP 12/05/17 08/23/18 Alfreda Ray PA-C [address] [place] [address] PCP - General Family Medicine 12/30/21 [place] [address] [address] GARCIA 20124 Assigned PCP 12/05/17 09/30/19 [place] [address] L[address] GARCIA 52433 Assigned PCP 10/01/19 03/02/20 [place] [address] [place] [address] Assigned PCP 03/03/20 05/25/20 [place] [address] [place] [address] Assigned PCP 05/26/20 09/28/20 [place] [address] [place] [address] Assigned PCP 09/29/20 07/31/22 Jesú[place] [address] [place], [place] [address] Assigned Musculoskeletal Provider 10/20/20 04/17/22 Alfreda Ray PA-C [address] [place] [address] [phone] Referring Physician Family Medicine 12/31/21 Katrin Orellana PA-C [address] [place] [address] [phone] Physician Flight Service Agent Dermatology 12/31/21 Shanna Vang PA-C [address] [place] [address] [phone] Assigned Cancer Care Provider 01/10/22 Fransisco Eddy MD [address] [place] [address] [phone] Assigned Rheumatology Provider 05/09/22 [place] [address] [place] [address] Assigned Pain Medication Provider 06/29/22 09/04/22 [place] [address] [place] [address] Assigned PCP 08/15/22 08/28/22 Katrin Orellana PA-C [address] [place] [address] [phone] Assigned Surgical Provider 08/15/22 02/10/24 Cristina Hsieh [facility] [address] [place] [address] [place] [address] Pharmacist Pharmacist 09/07/22 Alfreda Ray PA-C [address] [place] [address] 716032 Assigned Pain Medication Provider 09/05/22 09/10/23 Alfreda Ray PA-C [address] [place] [address] 01274 Assigned PCP 08/29/22 Cristina Hsieh [facility] [address] [phone] Assigned MTM Pharmacist 09/26/22 Dakota Tatum MD 6 [place] [address] Cardiovascular Disease 03/25/23 Dakota Tatum MD [address] [place] [address] Assigned Heart and Vascular Provider 05/01/23 [place] [address] [address]AST[address]UM, [address] [address] Assigned Musculoskeletal Provider 04/12/24 documented as of this encounter
--- OUTSIDE RECORDS SUMMARY | 2024-07-28 14:28 | XMS_ITS | Encounter Summary ---
Author Organization [facility] Address [address] [place] [address] Care Team Providers Care Section 8 Property Manager Name Role Phone Esperanza Gatica MD Primary Care Provider + Esperanza Gatica MD Unavailable +[phone] Esperanza Gatica MD Unavailable +[phone] Esperanza Gatica MD Unavailable +[phone] Esperanza Gatica MD Unavailable +[phone] Esperanza Gatica MD Unavailable +[phone] Esperanza Gatica MD Unavailable +[phone] Jesús Orourke MD Unavailable Alfreda RayC Primary Care Provider + Alfreda Ray PA-C Unavailable + [phone] Katrin Orellana PA-C Unavailable [phone] Shanna VangC Unavailable +[phone] Fransisco Eddy MD Unavailable [phone] Esperanza Gatica MD Unavailable +[phone] Esperanza Gatica MD Unavailable +[phone] Katrin Orellana PA-C Unavailable Cristina Hsieh [facility] Unavailable RayAlfreda PA-C Unavailable [phone] Cory Alfreda Liu PA-C Unavailable [phone] Cristina Hsieh [facility] Unavailable Dakota Tatum MD Unavailable Dakota Tatum MD Unavailable Srinivas Marie DO Unavailable [phone] Encounter Details Date Type Department Care Team (Late st Contact Info) Description 06/30/2016 MyC Medical Advice [address], [address] [place] [address] [place] [address] [place] [address] Social History Tobacco Use Types [...] Sex Assigned at Female 08/17/2018 7:56 AM DIGGING MACHINE OPERATOR Legal Sex Female 4:24 AM DIGGING MACHINE OPERATOR Gender Identity Female 08/17/2018 7:56 AM DIGGING MACHINE OPERATOR Sexual Orientation Straight 08/17/2018 7: 56 AM DIGGING MACHINE OPERATOR documented as of this encounter Plan of Treatment Upcoming Encounters Date Type Department Care Team (Late st Contact Info) Description 09/07/2024 10:00 AM CDT Office Visit [facility] [address] [address] Fransisco Eddy MD [address] [place] [address] 09/18/2024 2:00 PM CDT Virtual Visit [facility] Disorders [address] [place] [address] Shanna Vang PA-C [address] [place] [address] 03/29/2025 3:40 PM CDT Office Visit [address] [place] [address] Alfreda Ray PA-C [address] [place] [address] 724562 documented as of this encounter Visit Diagnoses Not on filedocumented in this encounter Additional Health Concerns Infection Onset Date Last Indicated Resolved Time Rule Out COVID-19 05/08/2021 05/08/2021 05/09/2021 9:08 PM DIGGING MACHINE OPERATOR Assessment Noted Time PHQ-9 Depression Total Score: 0 08/14/19 16 8:10 AM DIGGING MACHINE OPERATOR documented as of this encounter Care Teams Section 8 Property Manager Relationship Specialty Start Date End Date Esperanza Gatica MD PCP - General Family Practice 10/13/11 12/29/21 [place] [address] LISB[address] GARCIA [address] PCP - Assigned PCP 12/05/17 08/23/18 Alfreda Ray PA-C [address] [place] [address]35 PCP - General Family Medicine 12/30/21 [place] [address] LISBETH GARCIA [address] Assigned PCP 12/05/17 09/30/19 [place] [address] [address] [place]FF[place] [address] Assigned PCP 10/01/19 03/02/20 [place] [address] [place] [address] Assigned PCP 03/03/20 05/25/20 [place] [address] LISB[address] GARCIA 42278 Assigned PCP 05/26/20 09/28/20 [place] [address] [place] [address] Assigned PCP 09/29/20 07/31/22 Jesú[place] [address] [place], [place] 486587 Assigned Musculoskeletal Provider 10/20/20 04/17/22 Alfreda Ray PA-C [address] [place] [address] 409832 Referring Physician Family Medicine 12/31/21 Katrin Orellana PA-C [address] [place] [address] 575235 Physician Sustainability Purchasing Agent Dermatology 12/31/21 Shanna Vang PA-C [facility] [address] 519544 Assigned Cancer Care Provider 01/10/22 Fransisco Eddy MD [address] [place] [address] Assigned Rheumatology Provider 05/09/22 [place] [address] [place] [address] Assigned Pain Medication Provider 06/29/22 09/04/22 [place] [address] [place] [address] Assigned PCP 08/15/22 08/28/22 Katrin Orellana PA-C [address] [place] [address] 26979 Assigned Surgical Provider 08/15/22 02/10/24 Cristina Hsieh [facility] [address] [place] [address] [place] [address] Pharmacist Pharmacist 09/07/22 Alfreda Ray PA-C [address] [place] [address]82 Assigned Pain Medication Provider 09/05/22 09/10/23 Alfreda Ray PA-C [address] [place] [address] Assigned PCP 08/29/22 Cristina Hsieh [facility] [address] [phone] Assigned MTM Pharmacist 09/26/22 Dakota Tatum MD [address] [place] [address] [phone] Cardiovascular Disease 03/25/23 Dakota Tatum MD [address] [place] [address] 497915 Assigned Heart and Vascular Provider 05/01/23 [place] [address] CE[address]AST[address]UM, [address] [address] Assigned Musculoskeletal Provider 04/12/24 documented as of this encounter
--- OUTSIDE RECORDS SUMMARY | 2024-07-28 14:28 | XMS_ITS | Encounter Summary ---
Author Organization [facility] Address [address] [place] [address] 89[address] Care Team Providers Care Licensing Representative Name Role Phone Esperanza Gatica MD Primary Care Provider + Esperanza Gatica MD Unavailable +[phone] Esperanza Gatica MD Unavailable +[phone] Esperanza Gatica MD Unavailable +558 Esperanza Gatica MD Unavailable +889 Esperanza Gatica MD Unavailable +199 Esperanza Gatica MD Unavailable +[phone] Jesús Orourke MD Unavailable Alfreda RayC Primary Care Provider + Alfreda Ray PA-C Unavailable + [phone] Katrin Orellana PA-C Unavailable +[phone] Shanna VangC Unavailable +[phone] Fransisco Eddy MD Unavailable +[phone] Esperanza Gatica MD Unavailable +[phone] Esperanza Gatica MD Unavailable +[phone] Katrin Orellana PA-C Unavailable [phone] Cristina Hsieh [facility] Unavailable +[phone] RayAlfreda PA-C Unavailable +[phone] Cory Alfreda Liu PA-C Unavailable +[phone] Cristina Hsieh [facility] Unavailable [phone] Dakota Tautm MD Unavailable +[phone] Dakota Tatum MD Unavailable +[phone] Srinivas Marie DO Unavailable [phone] Reason for Visit * Reason Onset Date Comments Refill Request 02/07/2015 Zolpidem 5mg Encounter Details Date Type Department Care Team (Late st Contact Info) Description 02/07/2015 MyC Refill [address], [facility] [address] [place] [address] [place] [address] [place] [address] Refill Request (Zolpidem 5mg) Social [...] Sex Assigned at Female 08/17/2018 7:56 AM ANALYTICAL STATISTICIAN Legal Sex Female 4:24 AM ANALYTICAL STATISTICIAN Gender Identity Female 08/17/2018 7:56 AM ANALYTICAL STATISTICIAN Sexual Orientation Straight 08/17/2018 7: 56 AM ANALYTICAL STATISTICIAN documented as of this encounter Miscellaneous Notes * Telephone Encounter - Leigha Rinaldi RN - 02/07/2015 1:27 PM CDT Zolpidem 5mg Last Written Prescription Date: 12/06/2014 Last Fill Quantity: 90, # refills: 2 Last Office Visit with [facility] primary care provider: 12/06/2014 [...] MD] Preferred pharmacy: [id number] Comment: documented in this encounter Plan of Treatment Upcoming Encounters Date Type Department Care Team (Late st Contact Info) Description 09/07/2024 10:00 AM CDT Office Visit [facility] [address] [place] [address] Fransisco Eddy MD [address] [place] [address] 88 [place], [place] 074625 09/18/2024 2:00 PM CDT Virtual Visit [facility] [place] [address] 105 [place] [address] Shanna Vang PA-C [address] [place] [address] 03/29/2025 3:40 PM CDT Office Visit [facility] [address] [place] [address] [place] [address] Alfreda Ray PA-C [address] [place] [address] [phone] documented as of this encounter Visit Diagnoses Diagnosis Insomnia, unspecified documented in this encounter Additional Health Concerns Infection Onset Date Last Indicated Resolved Time Rule Out COVID-19 05/08/2021 05/08/2021 05/09/2021 9:08 PM ANALYTICAL STATISTICIAN documented as of this encounter Care Teams Licensing Representative Relationship Specialty Start Date End Date Esperanza Gatica MD PCP - General Family Practice 10/13/11 12/29/21 [place] [address] [place] [address] PCP - Assigned PCP 12/05/17 08/23/18 Alfreda Ray PA-C [address] [place] [address] 19780 PCP - General Family Medicine 12/30/21 [place] [address] [place] [address] Assigned PCP 12/05/17 09/30/19 [place] [address] [place] [address] Assigned PCP 10/01/19 03/02/20 [place] [address] [place] [address] Assigned PCP 03/03/20 05/25/20 [place] [address] [place] [address] Assigned PCP 05/26/20 09/28/20 [place] [address] [place] [address] Assigned PCP 09/29/20 07/31/22 [place] [address] [place] [address] Assigned Musculoskeletal Provider 10/20/20 04/17/22 Alfreda Ray PA-C [address] [place], [place] 954632 Referring Physician Family Medicine 12/31/21 Katrin Orellana PA-C [address] [place] [address] 98 [place], [place] [phone] Physician Sr. Vendor Management Associate Dermatology 12/31/21 Shanna Vang PA-C [address] 790574 Assigned Cancer Care Provider 01/10/22 Fransisco Eddy MD [address] [place] [address] 846705 Assigned Rheumatology Provider 05/09/22 [place] [address] [place] [address] Assigned Pain Medication Provider 06/29/22 09/04/22 [place] [address] [place] [address] Assigned PCP 08/15/22 08/28/22 Katrin Orellana PA-C [facility] 98 [place] [address] Assigned Surgical Provider 08/15/22 02/10/24 Cristina Hsieh, [facility] [address] [facility] LISBETH HERNANDEZ [address] Pharmacist Pharmacist 09/07/22 Alfreda Ray PA-C [address] [place] [address] 989852 Assigned Pain Medication Provider 09/05/22 09/10/23 Alfreda Ray PA-C [address] [place] [address] 330402 Assigned PCP 08/29/22 Cristina Hsieh, [facility] [address] [address] Assigned MTM Pharmacist 09/26/22 Dakota Tatum MD [address] [place] [address] Cardiovascular Disease 03/25/23 Dakota Tatum MD 6 [place] [address] Assigned Heart and Vascular Provider 05/01/23 [place] [address] [place] [address] [facility] [address] [place] [address] Assigned Musculoskeletal Provider 04/12/24 documented as of this encounter
--- OUTSIDE RECORDS SUMMARY | 2024-07-28 14:28 | XMS_ITS | Encounter Summary ---
Author Organization [place] Address [address] [place] [address] Care Team Providers Care Lathe Scalper Operator Name Role Phone Esperanza Gatica MD Primary Care Provider + Esperanza Gatica MD Unavailable +[phone] Esperanza Gatica MD Unavailable +[phone] Esperanza Gatica MD Unavailable +[phone] Esperanza Gatica MD Unavailable +[phone] Esperanza Gatica MD Unavailable +[phone] Esperanza Gatica MD Unavailable +[phone] Jesús Orourke MD Unavailable Alfreda RayC Primary Care Provider + Alfreda Ray PA-C Unavailable + [phone] Katrin Orellana PA-C Unavailable +[phone] Shanna VangC Unavailable +[phone] Fransisco Eddy MD Unavailable +[phone] Esperanza Gatica MD Unavailable +[phone] Esperanza Gatica MD Unavailable +[phone] Katrin Orellana PA-C Unavailable Cristina Hsieh [facility] Unavailable Cory Alfreda Liu PA-C Unavailable +[phone] Ho Raymustapha Liu PA-C Unavailable +[phone] Cristina Hsieh [facility] Unavailable +[phone] Dakota Tatum MD Unavailable [phone] Dakota Tatum MD Unavailable [phone] Srinivas Marie DO Unavailable [phone] Reason for Visit * Reason Onset Date Comments Refill Request 03/12/2016 Lisinopril-HCTZ Encounter Details Date Type Department Care Team (Late st Contact Info) Description 03/12/2016 MyC Refill [address], [address] [place] [address] [place] [address] [place] [address] Refill Request (Lisinopril-HCTZ) Social History [...] Assigned at Female 08/17/2018 7:56 AM SUPERVISOR PRESSING DEPARTMENT Legal Sex Female 4:24 AM SUPERVISOR PRESSING DEPARTMENT Gender Identity Female 08/17/2018 7:56 AM SUPERVISOR PRESSING DEPARTMENT Sexual Orientation Straight 08/17/2018 7: 56 AM SUPERVISOR PRESSING DEPARTMENT documented as of this encounter Miscellaneous Notes * Telephone Encounter - Leigha Rinaldi RN - 03/12/2016 11:44 AM CDT Lisinopril-HCTZ Last Written Prescription Date: 08/13/2015 Last Fill Quantity: 90, # refills: 1 Last Office Visit with [facility], [facility] or [facility] [place] prescribing provider: 03/03/2016 POTASSIUM Date Value Ref Range Status 08/13/2015 3.9 3.4 - 5.3 mmol/L Final CREATININE Date Value Ref Range Status 08/13/2015 0.87 0.52 - 1.04 mg/dL Final BP Readings from Last 3 Encounters: 03/03/16 134/64 08/13/15 136/66 04/08/15 112/60 Prescription approved per [facility] Refill Protocol. Leigha Rinaldi RN * Telephone Encounter - Leigha Rinaldi RN - 03/12/2016 11:44 AM CDTMessage from [facility]: Original authorizing provider: MD Alexandria Brannon would like a refill of the following medications: lisinopril-hydrochlorothiazide (PRINZIDE,ZESTORETIC) 10-12.5 MG per tablet [Esperanza Gatica MD] Preferred pharmacy: [facility] [address] Comment: documented in this encounter Plan of Treatment Upcoming Encounters Date Type Department Care Team (Late st Contact Info) Description 09/07/2024 10:00 AM CDT Office Visit [facility] [address] [place] [phone] Fransisco Eddy MD [address] [place] [address] 740435 09/18/2024 2:00 PM CDT Virtual Visit [facility]ot[facility] [place] [address] 105 [place] [address] Shanna Vang, PAFilemonC [address] [address] 03/29/2025 3:40 PM CDT Office Visit [address] [phone] Alfreda Ray PA-C [address] [place] [address] documented as of this encounter Visit Diagnoses Diagnosis HTN (hypertension), benign Essential hypertension, benign documented in this encounter Additional Health Concerns Infection Onset Date Last Indicated Resolved Time Rule Out COVID-19 05/08/2021 05/08/2021 05/09/2021 9:08 PM SUPERVISOR PRESSING DEPARTMENT Assessment Noted Time PHQ-9 Depression Total Score: 0 08/14/19 16 8:10 AM SUPERVISOR PRESSING DEPARTMENT documented as of this encounter Care Teams Lathe Scalper Operator Relationship Specialty Start Date End Date Esperanza Gatica MD PCP - General Family Practice 10/13/11 12/29/21 [place] [address] LISB[address] GARCIA [address] PCP - Assigned PCP 12/05/17 08/23/18 Alfreda Ray PA-C [address] [place] [address] PCP - General Family Medicine 12/30/21 [place] [address] [address] GARCIA [address] Assigned PCP 12/05/17 09/30/19 [place] [address] [address] GARCIA [address] Assigned PCP 10/01/19 03/02/20 [place] [address] [address] GARCIA [address] Assigned PCP 03/03/20 05/25/20 [place] [address] [address] GARCIA [address] Assigned PCP 05/26/20 09/28/20 [place] [address] [address]B[address] GARCIA [address] Assigned PCP 09/29/20 07/31/22 [place] [address] [place] [address] [address] Assigned Musculoskeletal Provider 10/20/20 04/17/22 Alfreda Ray PA-C [address] [place] [address] Referring Physician Family Medicine 12/31/21 Katrin Orellana PA-C [address] [place] [address] Physician Room Service Supervisor Dermatology 12/31/21 Shanna Vang PA-C [address] [address] Assigned Cancer Care Provider 01/10/22 Fransisco Eddy MD [address] [place] [address] Assigned Rheumatology Provider 05/09/22 [place] [address] [address] GARCIA [address] Assigned Pain Medication Provider 06/29/22 09/04/22 [place] [address] [place] [address] Assigned PCP 08/15/22 08/28/22 Katrin Orellana PA-C [address] [place] [address] Assigned Surgical Provider 08/15/22 02/10/24 Cristina Hsieh [facility] [address] [place] [address] LISBETH HERNANDEZ [address] Pharmacist Pharmacist 09/07/22 Alfreda Ray PA-C [address] [place] [address] Assigned Pain Medication Provider 09/05/22 09/10/23 Alfreda Ray PA-C [address] [place] [address] Assigned PCP 08/29/22 Cristina Hsieh [facility] [address] [address] Assigned MTM Pharmacist 09/26/22 Dakota Tatum MD [address] [place] [address] 232855 Cardiovascular Disease 03/25/23 Dakota Tatum MD [address] [place] [address] 193625 Assigned Heart and Vascular Provider 05/01/23 [place] [address] CELE GASTELUM, [address] [address] Assigned Musculoskeletal Provider 04/12/24 documented as of this encounter
--- OUTSIDE RECORDS SUMMARY | 2024-07-28 14:28 | XMS_ITS | Encounter Summary ---
Author Organization [facility] Address [address] [place] [address] Care Team Providers Care Sewing Machine Attachment Tester Name Role Phone Esperanza Gatica MD Primary Care Provider + Esperanza Gatica MD Unavailable +[phone] Esperanza Gatica MD Unavailable +[phone] Esperanza Gatica MD Unavailable +108 Esperanza Gatica MD Unavailable +690 Esperanza Gatica MD Unavailable +120 Esperanza Gatica MD Unavailable +[phone] Jesús Orourke MD Unavailable Alfreda RayC Primary Care Provider + Alfreda Ray PA-C Unavailable + [phone] Katrin Orellana PA-C Unavailable +[phone] Shanna VangC Unavailable +[phone] Fransisco Eddy MD Unavailable +[phone] Esperanza Gatica MD Unavailable +[phone] Esperanza Gatica MD Unavailable +[phone] Katrin Orellana PA-C Unavailable Cristina Hsieh [facility] Unavailable Cory Alfreda Liu PA-C Unavailable Ho Raymustapha Liu PA-C Unavailable [phone] Cristina Hsieh [facility] Unavailable Dakota Tatum MD Unavailable Dakota Tatum MD Unavailable Srinivas Marie DO Unavailable [phone] Reason for Visit * Reason Onset Date Comments Flu 08/19/2016 Flu like symptom s Encounter Details Date Type Department Care Team (Late st Contact Info) Description 08/19/2016 MyC Medical Advice [place] [address] [facility], [facility] 100 [place] [address] [place] [address] [facility] [place] [address] Flu (Flu like symptoms) Social [...] Assigned at Female 08/17/2018 7:56 AM CHIEF MEDIA OFFICER Legal Sex Female 4:24 AM CHIEF MEDIA OFFICER Gender Identity Female 08/17/2018 7:56 AM CHIEF MEDIA OFFICER Sexual Orientation Straight 08/17/2018 7: 56 AM CHIEF MEDIA OFFICER documented as of this encounter Plan of Treatment Upcoming Encounters Date Type Department Care Team (Late st Contact Info) Description 09/07/2024 10:00 AM CDT Office Visit [facility] [address] 200 [place] [address] Fransisco Eddy MD [address] [place] [address] 09/18/2024 2:00 PM CDT Virtual Visit [facility] [address] [place] [address] 105 [place] [address] Shanna Vang PA-C [address] [place] [address] 03/29/2025 3:40 PM CDT Office Visit [address] [address] Alfreda Ray PA-C [address] [place] [address] 791672 documented as of this encounter Visit Diagnoses Not on filedocumented in this encounter Additional Health Concerns Infection Onset Date Last Indicated Resolved Time Rule Out COVID-19 05/08/2021 05/08/2021 05/09/2021 9:08 PM CHIEF MEDIA OFFICER Assessment Noted Time PHQ-9 Depression Total Score: 0 08/18/19 17 7:09 AM CHIEF MEDIA OFFICER documented as of this encounter Care Teams Sewing Machine Attachment Tester Relationship Specialty Start Date End Date Esperanza Gatica MD PCP - General Family Practice 10/13/11 12/29/21 [place] [address] LISBETH GARCIA [address] PCP - Assigned PCP 12/05/17 08/23/18 Alfreda Ray PA-C [address] [place] [address] PCP - General Family Medicine 12/30/21 [place] [address] LISBETH GARCIA [address] Assigned PCP 12/05/17 09/30/19 [place] [address] [place] [address] Assigned PCP 10/01/19 03/02/20 [place] [address] [place] [address] Assigned PCP 03/03/20 05/25/20 [place] [address] [place] [address] Assigned PCP 05/26/20 09/28/20 [place] [address] [place] [address] Assigned PCP 09/29/20 07/31/22 Jesú[place] [address] [place] [address] Assigned Musculoskeletal Provider 10/20/20 04/17/22 Alfreda Ray PA-C [address] [place] [address] Referring Physician Family Medicine 12/31/21 Katrin Orellana PA-C [address] [place] [address] Physician Egg Setter Dermatology 12/31/21 Shanna Vang PA-C [address] [place] [address] Assigned Cancer Care Provider 01/10/22 Fransisco Eddy MD [address] [place] [address] 88 [place] [address] Assigned Rheumatology Provider 05/09/22 [place] [address] [place] [address] Assigned Pain Medication Provider 06/29/22 09/04/22 [place] [address] [facility] [place] [address] Assigned PCP 08/15/22 08/28/22 Katrin Orellana PA-C [address] [place] [address] 98 [place] [address] Assigned Surgical Provider 08/15/22 02/10/24 Cristina Hsieh [address] [place] [address] LISBETH HERNANDEZ [address] Pharmacist Pharmacist 09/07/22 Alfreda Ray PA-C [address] [place] [address] Assigned Pain Medication Provider 09/05/22 09/10/23 Alfreda Ray PA-C [address] [place] [address] Assigned PCP 08/29/22 Cristina Hsieh [facility] 1600 [facility] 101 [place] [address] Assigned MTM Pharmacist 09/26/22 Dakota Tatum MD [address] [place] [address] Cardiovascular Disease 03/25/23 Dakota Tatum MD [address] [place] [address] Assigned Heart and Vascular Provider 05/01/23 [place] [address] [address], [facility] 300 [place] [address] Assigned Musculoskeletal Provider 04/12/24 documented as of this encounter
--- OUTSIDE RECORDS SUMMARY | 2024-07-28 14:28 | XMS_ITS | Encounter Summary ---
Author Organization [facility] Address [address] [place] [address] Care Team Providers Care Motorboat Mechanic Name Role Phone Esperanza Gatica MD Primary Care Provider + Esperanza Gatica MD Unavailable +[phone] Esperanza Gatica MD Unavailable +674 Esperanza Gatica MD Unavailable +893 Esperanza Gatica MD Unavailable +744 Esperanza Gatica MD Unavailable +489 Esperanza Gatica MD Unavailable +[phone] Jesús Orourke MD Unavailable Alfreda RayC Primary Care Provider + Alfreda Ray PA-C Unavailable + [phone] Katrin Orellana PA-C Unavailable [phone] Shanna VangC Unavailable +[phone] Fransisco Eddy MD Unavailable [phone] Esperanza Gatica MD Unavailable +[phone] Esperanza Gatica MD Unavailable +[phone] Katrin Orellana PA-C Unavailable Cristina Hsieh [facility] Unavailable Cory Alfreda Liu PA-C Unavailable Ho Raymustapha Liu PA-C Unavailable [phone] Cristina Hsieh [facility] Unavailable Dakota Tatum MD Unavailable Dakota Tatum MD Unavailable Srinivas Marie DO Unavailable [phone] Reason for Visit * Reason Onset Date Comments Sinus Problem 06/30/2016 Requesting antib iotic Encounter Details Date Type Department Care Team (Late st Contact Info) Description 06/30/2016 MyC Medical Advice [address], [facility] 100 [place] [address] [place] [address] [place] [address] Sinus Problem (Requesting antibiotic) Social [...] Assigned at Female 08/17/2018 7:56 AM BUSINESS SYSTEMS DEVELOPER Legal Sex Female 4:24 AM BUSINESS SYSTEMS DEVELOPER Gender Identity Female 08/17/2018 7:56 AM BUSINESS SYSTEMS DEVELOPER Sexual Orientation Straight 08/17/2018 7: 56 AM BUSINESS SYSTEMS DEVELOPER documented as of this encounter Miscellaneous Notes * Telephone Encounter - Leigha Rinaldi RN - 06/30/2016 11:34 AM CST Called patient and advised Dr. Gatica would see her if she came over now. Leigha Rinaldi RN NESS SYSTEMS DEVELOPER * Telephone Encounter - Esperanza Gatica MD - 06/30/2016 9:03 AM BUSINESS SYSTEMS DEVELOPER Recommend appointment with me. I recommend we do an exam, to double check ears, throat, lungs etc. ianmbalta was started in feb and recommended follow up for that med, we can discuss this as well. Any way she can come in today? NESS SYSTEMS DEVELOPER documented in this encounter Plan of Treatment Upcoming Encounters Date Type Department Care Team (Late st Contact Info) Description 09/07/2024 10:00 AM CDT Office Visit [facility] [address] 200 [place] [address] Fransisco Edyd MD [address] [place] [address] 88 [place] [address] 09/18/2024 2:00 PM CDT Virtual Visit [facility] [address] [place] [address] 105 [place] [address] Shanna Vang PAFilemonC [address] [place] [address] 03/29/2025 3:40 PM CDT Office Visit [address] [place] [address] Alfreda Ray PA-C [address] [place] [address] 751592 documented as of this encounter Visit Diagnoses Not on filedocumented in this encounter Additional Health Concerns Infection Onset Date Last Indicated Resolved Time Rule Out COVID-19 05/08/2021 05/08/2021 05/09/2021 9:08 PM BUSINESS SYSTEMS DEVELOPER Assessment Noted Time PHQ-9 Depression Total Score: 0 08/14/19 16 8:10 AM BUSINESS SYSTEMS DEVELOPER documented as of this encounter Care Teams Motorboat Mechanic Relationship Specialty Start Date End Date Esperanza Gatica MD PCP - General Family Practice 10/13/11 12/29/21 [place] [address] [place] [address] PCP - Assigned PCP 12/05/17 08/23/18 Alfreda Ray PA-C [address] [place] [address], [place] [address] PCP - General Family Medicine 12/30/21 [place] [address] [place] [address] Assigned PCP 12/05/17 09/30/19 [place] [address] [place] [address] Assigned PCP 10/01/19 03/02/20 [place] [address] [place] [address] Assigned PCP 03/03/20 05/25/20 [place] [address] [place] [address] Assigned PCP 05/26/20 09/28/20 [place] [address] [place] [address] Assigned PCP 09/29/20 07/31/22 Jesú[place] [address] [place] [address] [place] [address] Assigned Musculoskeletal Provider 10/20/20 04/17/22 Alfreda Ray PA-C [address] [place] [address] 399162 Referring Physician Family Medicine 12/31/21 Katrin Orellana PA-C [address] [place] [address] 162445 Physician Retail Merchandiser Dermatology 12/31/21 Shanna Vang PA-C [address] 744144 Assigned Cancer Care Provider 01/10/22 Fransisco Eddy MD [address] [place] [address] 788765 Assigned Rheumatology Provider 05/09/22 [place] [address] LISBETH GARCIA [address] Assigned Pain Medication Provider 06/29/22 09/04/22 [place] [address] LISB[address] GARCIA [address] Assigned PCP 08/15/22 08/28/22 Katrin Orellana PA-C [address] [place] [address] 038315 Assigned Surgical Provider 08/15/22 02/10/24 Cristina Hsieh, [facility] 3305 [facility] LISBETH HERNANDEZ [address] Pharmacist Pharmacist 09/07/22 Alfreda Ray PA-C [address] [place] [address] 084732 Assigned Pain Medication Provider 09/05/22 09/10/23 Alfreda Ray PA-C [address] [place] [address] 109092 Assigned PCP 08/29/22 Cristina Hsieh [facility] [address] [address] Assigned MTM Pharmacist 09/26/22 Dakota Tatum MD [address] [place] [address] Cardiovascular Disease 03/25/23 Dakota Tatum MD [address] [place] [address] Assigned Heart and Vascular Provider 05/01/23 [place] [address] [address], [address] [address] Assigned Musculoskeletal Provider 04/12/24 documented as of this encounter
--- OUTSIDE RECORDS SUMMARY | 2024-07-28 14:28 | XMS_ITS | Encounter Summary ---
Author Organization [facility] Address [address] [place] [address] Care Team Providers Care Stick Welder Name Role Phone Esperanza Gatica MD Primary Care Provider + Esperanza Gatica MD Unavailable +[phone] Esperanza Gatica MD Unavailable +751 Esperanza Gatica MD Unavailable +737 Esperanza Gatica MD Unavailable +791 Esperanza Gatica MD Unavailable +603 Esperanza Gatica MD Unavailable +[phone] Jesús Orourke MD Unavailable Alfreda RayC Primary Care Provider + Alfreda Ray PA-C Unavailable + [phone] Katrin Orellana PA-C Unavailable [phone] Shanna VangC Unavailable +[phone] Fransisco Eddy MD Unavailable [phone] Esperanza Gatica MD Unavailable +[phone] Esperanza Gatica MD Unavailable +[phone] Katrin Orellana PA-C Unavailable Cristina Hsieh [facility] Unavailable Cory Alfreda Liu PA-C Unavailable +[phone] Cory Alfreda Liu PA-C Unavailable +[phone] Cristina Hsieh [facility] Unavailable [phone] Dakota Tatum MD Unavailable Dakota Tatum MD Unavailable [phone] Srinivas Marie DO Unavailable [phone] Reason for Visit * Reason Onset Date Comments Refill Request 01/15/2015 Atenolol 25mg Encounter Details Date Type Department Care Team (Late st Contact Info) Description 01/15/2015 MyC Refill [address], [facility] 100 [place] [address] [place] [address] [place] [address] Refill Request (Atenolol 25mg) Social [...] Sex Assigned at Female 08/17/2018 7:56 AM TUB WASH OPERATOR Legal Sex Female 4:24 AM TUB WASH OPERATOR Gender Identity Female 08/17/2018 7:56 AM TUB WASH OPERATOR Sexual Orientation Straight 08/17/2018 7: 56 AM TUB WASH OPERATOR documented as of this encounter Miscellaneous Notes * Telephone Encounter - Leigha Rinaldi RN - 01/15/2015 10:29 AM CDT Atenolol 25mg Last Written Prescription Date: 07/10/2014 Last Fill Quantity: 90, # refills: 1 Last Office Visit with [facility] primary care provider: 12/06/2014 Future Office Visit: BP Readings from Last 3 Encounters: 12/06/14 126/64 08/07/14 130/88 07/10/14 116/60 Prescription approved per [facility] Refill Protocol. Leigha Rinaldi RN * Telephone Encounter - Leigha Rinaldi RN - 01/15/2015 10:28 AM [facility] Original authorizing provider: MD Alexandria Brannon would like a refill of the following medications: atenolol (TENORMIN) 25 MG tablet [Esperanza Gatica MD] Preferred pharmacy: [id number] Comment: documented in this encounter Plan of Treatment Upcoming Encounters Date Type Department Care Team (Late st Contact Info) Description 09/07/2024 10:00 AM CDT Office Visit [facility] [address] 200 [place] [address] Fransisco Eddy MD [address] [place] [address] 88 [place] [address] 09/18/2024 2:00 PM CDT Virtual Visit [facility] [place] [address] 105 [place] [address] Shanna Vang, PAFilemonC [address] [place] [address] 03/29/2025 3:40 PM CDT Office Visit [facility] [address] [place] [address] [place] [address] Alfreda Ray PA-C [address] [place] [address] 740262 documented as of this encounter Visit Diagnoses Diagnosis HTN (hypertension), benign Essential hypertension, benign documented in this encounter Additional Health Concerns Infection Onset Date Last Indicated Resolved Time Rule Out COVID-19 05/08/2021 05/08/2021 05/09/2021 9:08 PM TUB WASH OPERATOR documented as of this encounter Care Teams Stick Welder Relationship Specialty Start Date End Date Esperanza Gatica MD PCP - General Family Practice 10/13/11 12/29/21 [place] [address] [place] [address] PCP - Assigned PCP 12/05/17 08/23/18 Alfreda Ray PA-C [address] [place] [address] PCP - General Family Medicine 12/30/21 [place] [address] [place] [address] Assigned PCP 12/05/17 09/30/19 [place] [address] [place] [address] Assigned PCP 10/01/19 03/02/20 [place] [address] [place] [address] Assigned PCP 03/03/20 05/25/20 [place] [address] [place] [address] Assigned PCP 05/26/20 09/28/20 [place] [address] [place] [address] Assigned PCP 09/29/20 07/31/22 [place] [address] [place] [address] Assigned Musculoskeletal Provider 10/20/20 04/17/22 Alfreda Ray PA-C [address] [place] [address] 859222 Referring Physician Family Medicine 12/31/21 Katrin Orellana PA-C [address] [place] [address] 98 [place], [place] 754545 Physician Science Job Titles Dermatology 12/31/21 Shanna Vang PA-C [address] 457224 Assigned Cancer Care Provider 01/10/22 Fransisco Eddy MD [address] [place] [address] 008465 Assigned Rheumatology Provider 05/09/22 [place] [address] LISB[address] GARCIA [address] Assigned Pain Medication Provider 06/29/22 09/04/22 [place] [address] [place] [address] Assigned PCP 08/15/22 08/28/22 Katrin Orellana PA-C 420 [facility] 98 [place] [address] Assigned Surgical Provider 08/15/22 02/10/24 Cristina Hsieh [facility] 3305 [facility] LISBETH HERNANDEZ [address] Pharmacist Pharmacist 09/07/22 Alfreda Ray PA-C [address] [place] [address] 996102 Assigned Pain Medication Provider 09/05/22 09/10/23 Alfreda Ray PA-C [address] [place] [address] Assigned PCP 08/29/22 Cristina Hsieh, [facility] [address] [address] Assigned MTM Pharmacist 09/26/22 Dakota Tatum MD [address] [place] [address] Cardiovascular Disease 03/25/23 Dakota Tatum MD 516 [place] [address] Assigned Heart and Vascular Provider 05/01/23 [place] [address] [address], [facility] 300 [place] [address] Assigned Musculoskeletal Provider 04/12/24 documented as of this encounter
--- OUTSIDE RECORDS SUMMARY | 2024-07-28 14:28 | XMS_ITS | Encounter Summary ---
Author Organization [facility] Address [address] [place] [address] Care Team Providers Care Intranet Specialist Name Role Phone Esperanza Gatica MD Primary Care Provider + Esperanza Gatica MD Unavailable +[phone] Esperanza Gatica MD Unavailable +[phone] Esperanza Gatica MD Unavailable +[phone] Esperanza Gatica MD Unavailable +[phone] Esperanza Gatica MD Unavailable +228 Esperanza Gatica MD Unavailable +[phone] Jesús Orourke MD Unavailable Alfreda RayC Primary Care Provider + Alfreda Ray PA-C Unavailable + [phone] Katrin Orellana PA-C Unavailable [phone] Shanna VangC Unavailable +[phone] Fransisco Eddy MD Unavailable +[phone] Esperanza Gatica MD Unavailable +[phone] Esperanza Gatica MD Unavailable +[phone] Katrin Orellana PA-C Unavailable Cristina Hsieh [facility] Unavailable Cory Alfreda Liu PA-C Unavailable Ho Raymustapha Liu PA-C Unavailable +[phone] Cristina Hsieh [facility] Unavailable Dakota Tatum MD Unavailable Dakota Tatum MD Unavailable [phone] Srinivas Marie DO Unavailable [phone] Reason for Visit * Reason Onset Date Comments Refill Request 01/20/2015 Simvastatin 20mg Encounter Details Date Type Department Care Team (Late st Contact Info) Description 01/20/2015 MyC Refill [address], [facility] 100 [place] [address] [place] [address] [facility] [place] [address] Refill Request (Simvastatin 20mg) Social [...] Sex Assigned at Female 08/17/2018 7:56 AM CORE MOUNTER Legal Sex Female 4:24 AM CORE MOUNTER Gender Identity Female 08/17/2018 7:56 AM CORE MOUNTER Sexual Orientation Straight 08/17/2018 7: 56 AM CORE MOUNTER documented as of this encounter Miscellaneous Notes * Telephone Encounter - Leigha Rinaldi RN - 01/21/2015 8:04 AM CDT Simvastatin Last Written Prescription Date: 07/10/2014 Last Fill Quantity: 90, # refills: 1 Last Office Visit with [facility] primary care provider: 12/06/2014 CHOL 137 07/10/2014 HDL 54 07/10/2014 LDL 62 07/10/2014 TRIG 105 07/10/2014 CHOLHDLRATIO 2.5 07/10/2014 Prescription approved per [facility] Refill Protocol. Leigha Rinaldi RN * Telephone Encounter - Leigha Rinaldi RN - 01/21/2015 8:03 AM [facility] Original authorizing provider: MD Alexandria Brannon would like a refill of the following medications: simvastatin (ZOCOR) 20 MG tablet [Esperanza Gatica MD] Preferred pharmacy: [id number] - [address] Comment: documented in this encounter Plan of Treatment Upcoming Encounters Date Type Department Care Team (Late st Contact Info) Description 09/07/2024 10:00 AM CDT Office Visit [facility] [address] 200 [place] [address] Fransisco Eddy MD [address] [place] [address] 88 [place] [address] 09/18/2024 2:00 PM CDT Virtual Visit [facility] [address] 105 [place] [address] Shanna Vang, PARobinson [address] [place] [address] 686324 03/29/2025 3:40 PM CDT Office Visit [facility] [address] [place] [address] [place] [address] Alfreda Ray PA-C [address] [place] [address] 345742 documented as of this encounter Visit Diagnoses Diagnosis Hyperlipidemia LDL goal <160 Other and unspecified hyperlipidemia documented in this encounter Additional Health Concerns Infection Onset Date Last Indicated Resolved Time Rule Out COVID-19 05/08/2021 05/08/2021 05/09/2021 9:08 PM CORE MOUNTER documented as of this encounter Care Teams Intranet Specialist Relationship Specialty Start Date End Date Esperanza Gatica MD PCP - General Family Practice 10/13/11 12/29/21 [place] [address] [place] [address] PCP - Assigned PCP 12/05/17 08/23/18 Alfreda Ray PA-C [address] [place] [address] PCP - General Family Medicine 12/30/21 [place] [address] [place] [address] Assigned PCP 12/05/17 09/30/19 [place] [address] [place] [address] Assigned PCP 10/01/19 03/02/20 [place] [address] [place] [address] Assigned PCP 03/03/20 05/25/20 [place] [address] [place] [address] Assigned PCP 05/26/20 09/28/20 [place] [address] [place] [address] Assigned PCP 09/29/20 07/31/22 Jesú[place] [address] [place] [address] Assigned Musculoskeletal Provider 10/20/20 04/17/22 Alfreda Ray PA-C 4151 [place], [place] 388692 Referring Physician Family Medicine 12/31/21 Katrin Orellana PA-C 420 [facility] 98 [place], [place] 480705 Physician Utility Engineer Dermatology 12/31/21 Shanna Vang PA-C [address] [place] [address] [id number] Assigned Cancer Care Provider 01/10/22 Fransisco Eddy MD [address] [place] [address] 653975 Assigned Rheumatology Provider 05/09/22 [place] [address] [address]ISB[address] GARCIA [address] Assigned Pain Medication Provider 06/29/22 09/04/22 [place] [address] [address] GARCIA [address] Assigned PCP 08/15/22 08/28/22 Katrin Orellana PA-C 420 [facility] 98 [place] [address] Assigned Surgical Provider 08/15/22 02/10/24 Cristina Hsieh [facility] [address] [facility] LISBETH HERNANDEZ [address] Pharmacist Pharmacist 09/07/22 Alfreda Ray PA-C [address] [place] [address] 277882 Assigned Pain Medication Provider 09/05/22 09/10/23 Alfreda Ray PA-C [address] [place] [address] 486252 Assigned PCP 08/29/22 Cristina Hsieh [facility] [address] [address] Assigned MTM Pharmacist 09/26/22 Dakota Tatum MD [address] [place] [address] Cardiovascular Disease 03/25/23 Dakota Tatum MD 6 [place] [address] Assigned Heart and Vascular Provider 05/01/23 [place] [address] [place] , [facility] 300 [place] [address] Assigned Musculoskeletal Provider 04/12/24 documented as of this encounter
--- OUTSIDE RECORDS SUMMARY | 2024-07-28 14:28 | XMS_ITS | Encounter Summary ---
Author Organization [place] Address [address] [place] [address]59 Care Team Providers Care Filament Coil Winder Name Role Phone Esperanza Gatica MD Primary Care Provider + Esperanza Gatica MD Unavailable +[phone] Esperanza Gatica MD Unavailable +[phone] Esperanza Gatica MD Unavailable +[phone] Esperanza Gatica MD Unavailable +[phone] Esperanza Gatica MD Unavailable +[phone] Esperanza Gatica MD Unavailable +[phone] Jesús Orourke MD Unavailable Alfreda RayC Primary Care Provider + Alfreda Ray PA-C Unavailable + [phone] Katrin Orellana PA-C Unavailable +[phone] Shanna VangC Unavailable +[phone] Fransisco Eddy MD Unavailable +[phone] Esperanza Gatica MD Unavailable +[phone] Esperanza Gatica MD Unavailable +[phone] Katrin Orellana PA-C Unavailable Cristina Hsieh [facility] Unavailable Cory Alfreda Liu PA-C Unavailable +[phone] Ho Raymustapha Liu PA-C Unavailable +[phone] Cristina Hsieh [facility] Unavailable +[phone] Dakota Tatum MD Unavailable +[phone] Dakota Tatum MD Unavailable [phone] Srinivas Marie DO Unavailable +[phone] Reason for Visit * Reason Onset Date Comments Refill Request 02/07/2015 Trazodone 50mg Encounter Details Date Type Department Care Team (Late st Contact Info) Description 02/07/2015 MyC Refill [address], [facility] [address] [place] [address] [place] [address] [place] [address] Refill Request (Trazodone 50mg) Social [...] Sex Assigned at Female 08/17/2018 7:56 AM DRESSMAKING TEACHER Legal Sex Female 4:24 AM DRESSMAKING TEACHER Gender Identity Female 08/17/2018 7:56 AM DRESSMAKING TEACHER Sexual Orientation Straight 08/17/2018 7: 56 AM DRESSMAKING TEACHER documented as of this encounter Miscellaneous [...] MG tablet [Esperanza Gatica MD] Preferred pharmacy: [id number] - [address] Comment: documented in this encounter Plan of Treatment Upcoming Encounters Date Type Department Care Team (Late st Contact Info) Description 09/07/2024 10:00 AM CDT Office Visit [facility] [address] 200 [place] [phone] Fransisco Eddy MD [address] [place] [address] 88 [place] [address] 09/18/2024 2:00 PM CDT Virtual Visit [facility] [address] [place] [address] 105 [place] [address] Shanna Vang, PA-C [address] [place] [address] 318714 03/29/2025 3:40 PM CDT Office Visit [address] [place] [phone] Alfreda Ray PA-C [address] [place] [address] 389162 documented as of this encounter Visit Diagnoses Diagnosis Insomnia, unspecified documented in this encounter Additional Health Concerns Infection Onset Date Last Indicated Resolved Time Rule Out COVID-19 05/08/2021 05/08/2021 05/09/2021 9:08 PM DRESSMAKING TEACHER documented as of this encounter Care Teams Filament Coil Winder Relationship Specialty Start Date End Date Esperanza Gatica MD PCP - General Family Practice 10/13/11 12/29/21 [place] [address] [place] [address] PCP - Assigned PCP 12/05/17 08/23/18 Alfreda Ray PA-C [address] [place] [address]498 PCP - General Family Medicine 12/30/21 [place] [address] [place] [address] Assigned PCP 12/05/17 09/30/19 [place] [address] [place] [address] Assigned PCP 10/01/19 03/02/20 [place] [address] [place] [address] Assigned PCP 03/03/20 05/25/20 [place] [address] [place] [address] Assigned PCP 05/26/20 09/28/20 [place] [address] [place] [address] Assigned PCP 09/29/20 07/31/22 Jesú[place] [address] [place] [address] Assigned Musculoskeletal Provider 10/20/20 04/17/22 Alfreda Ray PA-C 4151 [place] [address] Referring Physician Family Medicine 12/31/21 Katrin Orellana PA-C [address] [place] [address]90 Physician Folded Towel Machine Operator Dermatology 12/31/21 Shanna Vang PA-C [address] 900304 Assigned Cancer Care Provider 01/10/22 Fransisco Eddy MD [address] [place] [address] 955025 Assigned Rheumatology Provider 05/09/22 [place] [address] [place] [address] Assigned Pain Medication Provider 06/29/22 09/04/22 [place] [address] [place] [address] Assigned PCP 08/15/22 08/28/22 Katrin Orellana PA-C [address] [place] [address]603 Assigned Surgical Provider 08/15/22 02/10/24 Cristina Hsieh RPH [address] [facility] [place] [address] Pharmacist Pharmacist 09/07/22 Alfreda Ray PA-C [address] [place] [address] 842322 Assigned Pain Medication Provider 09/05/22 09/10/23 Alfreda Ray PA-C [address] [place] [address] 866452 Assigned PCP 08/29/22 Cristina Hsieh, [facility] [address] [address] Assigned MTM Pharmacist 09/26/22 Dakota Tatum MD [address] [place] [address] Cardiovascular Disease 03/25/23 Dakota Tatum MD [address] [place] [address] 29872 Assigned Heart and Vascular Provider 05/01/23 [place] [address] [place] , [address] [address] Assigned Musculoskeletal Provider 04/12/24 documented as of this encounter
--- OUTSIDE RECORDS SUMMARY | 2024-07-28 14:28 | XMS_ITS | Encounter Summary ---
Author Organization [place] Address [address] [place] [address]697 Care Team Providers Care Adult Basic Education Manager Name Role Phone Esperanza Gatica MD Primary Care Provider + Esperanza Gatica MD Unavailable +[phone] Esperanza Gatica MD Unavailable +[phone] Esperanza Gatica MD Unavailable +[phone] Esperanza Gatica MD Unavailable +[phone] Esperanza Gatica MD Unavailable +[phone] Esperanza Gatica MD Unavailable +[phone] Jesús Orourke MD Unavailable Alfreda RayC Primary Care Provider + Alfreda Ray PA-C Unavailable + [phone] Katrin Orellana PA-C Unavailable [phone] Shanna VangC Unavailable +[phone] Fransisco Eddy MD Unavailable +[phone] Esperanza Gatica MD Unavailable +[phone] Esperanza Gatica MD Unavailable +[phone] Katrin Orellana PA-C Unavailable Cristina Hsieh [facility] Unavailable Cory Alfreda Liu PA-C Unavailable Ray, Alfreda Liu PA-C Unavailable +[phone] Cristina Hsieh [facility] Unavailable Dakota Tatum MD Unavailable Dakota Tatum MD Unavailable Srinivas Marie DO Unavailable Reason for Visit * Reason Onset Date Comments Refill Request 12/22/2014 Lisinopril-HCTZ 10-12.5mg Encounter Details Date Type Department Care Team (Late st Contact Info) Description 12/22/2014 MyC Medical Advice [address], [address] [place] [address] [place] [address] [place] [address] Refill Request (Lisinopril-HCTZ 10-12.5mg) Social History Tobacco Use Types Packs/Day Years Used Date Smoking Tobacco: Former Cigarettes 1 5 0 06/21/1968 - 06/21/1973 Smokeless Tobacco: Former Alcohol Use Standard Drinks/Week Comments Yes 0 (1 standard drink = 0.6 oz pure alcohol) Very occasionally - 2 per month Comments No Sex and Gender Information Value Date Recorded Sex Assigned at Female 08/17/2018 7:56 AM SAMPLE MAKER Legal Sex Female 4:24 AM SAMPLE MAKER Gender Identity Female 08/17/2018 7:56 AM SAMPLE MAKER Sexual Orientation Straight 08/17/2018 7: 56 AM SAMPLE MAKER documented as of this encounter Miscellaneous Notes * Telephone Encounter - Leigha Rinaldi RN - 12/24/2014 8:16 AM CDT Lisinopril-HCTZ Last Written Prescription Date: 06/18/2014 Last Fill Quantity: 90 , # refills: 1 Last Office Visit with [facility] primary care provider: 5/18/ POTASSIUM Date Value [...] Visit [facility] [address] 200 [place] [phone] Fransisco Eddy MD [address] [place] [address] 88 [place] [address] 09/18/2024 2:00 PM CDT Virtual Visit [facility] [place] [address] 105 [place] [address] Shanna Vang, PARobinson [address] [place] [address] 03/29/2025 3:40 PM CDT Office Visit [address] [place] [phone] Alfreda Ray PA-C [address] [place] [address] [phone] documented as of this encounter Visit Diagnoses Diagnosis Insomnia, unspecified- Primary HTN (hypertension), benign Essential hypertension, benign documented in this encounter Additional Health Concerns Infection Onset Date Last Indicated Resolved Time Rule Out COVID-19 05/08/2021 05/08/2021 05/09/2021 9:08 PM SAMPLE MAKER documented as of this encounter Care Teams Adult Basic Education Manager Relationship Specialty Start Date End Date Esperanza Gatica MD PCP - General Family Practice 10/13/11 12/29/21 [place] [address] [place]ARCIA [address] PCP - Assigned PCP 12/05/17 08/23/18 Alfreda Ray PA-C [address] [place] [address] PCP - General Family Medicine 12/30/21 [place] [address] [place] [address] Assigned PCP 12/05/17 09/30/19 [place] [address] [place] [address] Assigned PCP 10/01/19 03/02/20 [place] [address] [place] [address] Assigned PCP 03/03/20 05/25/20 [place] [address] [place] [address] Assigned PCP 05/26/20 09/28/20 [place] [address] [place] [address] Assigned PCP 09/29/20 07/31/22 Jesú[place] [address] [place] [address] 429207 Assigned Musculoskeletal Provider 10/20/20 04/17/22 Alfreda Ray PA-C [address] [place] [address] [phone] Referring Physician Family Medicine 12/31/21 Katrin Orellana PA-C [address] [place] [address] 135105 Physician Soil Technician Dermatology 12/31/21 Shanna Vang PA-C [address] [place] [address] 917554 Assigned Cancer Care Provider 01/10/22 Fransisco Eddy MD [address] [place] [address] 949935 Assigned Rheumatology Provider 05/09/22 [place] [address] [place]ARC[place] [address] Assigned Pain Medication Provider 06/29/22 09/04/22 [place] [address] [place] [address] Assigned PCP 08/15/22 08/28/22 Katrin Orellana PA-C [address] [place] [address] 655755 Assigned Surgical Provider 08/15/22 02/10/24 Cristina Hsieh, [facility] [address] [facility] [place] [address] Pharmacist Pharmacist 09/07/22 Alfreda Ray PA-C [address] [place] [address] 23671 Assigned Pain Medication Provider 09/05/22 09/10/23 Alfreda Ray PA-C [address] [place] [address] 56598 Assigned PCP 08/29/22 Cristina Hsieh [facility] [address] [place] [address] 92256 Assigned MTM Pharmacist 09/26/22 Dakota Tatum MD [address] [place] [address] Cardiovascular Disease 03/25/23 Dakota Tatum MD [address] [place] [address]148 Assigned Heart and Vascular Provider 05/01/23 [place] [address] [place] , [address] [address] Assigned Musculoskeletal Provider 04/12/24 documented as of this encounter
--- OUTSIDE RECORDS SUMMARY | 2024-07-28 14:29 | XMS_ITS | Encounter Summary ---
Author Organization [place] Address [address] [place] [address] Care Team Providers Care Control Inspector Name Role Phone Alfa Marcelo MD Primary Care Provider Ajay Dailey MD Primary Care Provider [phone] Esperanza Gatica MD Primary Care Provider Esperanza Gatica MD Unavailable +[phone] Esperanza Gatica MD Unavailable +[phone] Esperanza Gatica MD Unavailable +[phone] Esperanza Gatica MD Unavailable +[phone] Esperanza Gatica MD Unavailable +[phone] Esperanza Gatica MD Unavailable +[phone] Jesús Orourke MD Unavailable Alfreda RayC Primary Care Provider + Alfreda RayC Unavailable +[phone] Katrin OrellanaC Unavailable +[phone] Shanna Vang-C Unavailable +[phone] Fransisco Eddy MD Unavailable +[phone] Esperanza Gatica MD Unavailable +[phone] Esperanza Gatica MD Unavailable +[phone] Katrin Orellana PA-C Unavailable Cristina Hsieh [facility] Unavailable +[phone] RayAlfreda olvera PA-C Unavailable +[phone] Cory Alfreda Liu PA-C Unavailable +[phone] Cristina Hsieh [facility] Unavailable +[phone] Dakota Tatum MD Unavailable [phone] Dakota Tatum MD Unavailable +[phone] Srinivas Marie DO Unavailable [phone] Encounter Details Date Type Department Care Team (Late st Contact Info) Description 09/23/[address] [address] Becky Leo MD [address] [address] [facility] Summary Social History Tobacco Use [...] Sex Assigned at Female 08/17/2018 7:56 AM FARM LABOR CONTRACTOR Legal Sex Female 4:24 AM FARM LABOR CONTRACTOR Gender Identity Female 08/17/2018 7:56 AM FARM LABOR CONTRACTOR Sexual Orientation Straight 08/17/2018 7: 56 AM FARM LABOR CONTRACTOR documented as of this encounter Plan of Treatment Upcoming Encounters Date Type Department Care Team (Late st Contact Info) Description 09/07/2024 10:00 AM CDT Office Visit [address] [phone] Fransisco Eddy MD [address] [place] [address] 88 [place] [address] 09/18/2024 2:00 PM CDT Virtual Visit [facility] [address] [place] [phone] Shanna Vang, PAFilemonC [address] [place], [place] [address] 03/29/2025 3:40 PM CDT Office Visit [address] [phone] Alfreda Ray PA-C [address] [place] [address] 076012 documented as of this encounter Visit Diagnoses Diagnosis [facility] Summary- Primary documented in this encounter Additional Health Concerns Infection Onset Date Last Indicated Resolved Time Rule Out COVID-19 05/08/2021 05/08/2021 05/09/2021 9:08 PM FARM LABOR CONTRACTOR documented as of this encounter Care Teams Control Inspector Relationship Specialty Start Date End Date Alfa Marcelo MD [facility] [address] [place] [address] [place] [address] PCP - General 01/22/04 01/28/11 Ajay Dailey MD [facility] [address] [place] [address] [place] [address] PCP - General Family Practice 01/29/11 10/12/11 Esperanza Gatica MD [facility] [address] [place] [address] [place] [address] PCP - General Family Practice 10/13/11 12/29/21 [place] [address] [place] [address] PCP - Assigned PCP 12/05/17 08/23/18 Alfreda Ray PA-C [address] [place] [address] PCP - General Family Medicine 12/30/21 [place] [address] [place], [place] [address] Assigned PCP 12/05/17 09/30/19 [place] [address] [place], [place]ETH [address] Assigned PCP 10/01/19 03/02/20 [place] [address] [place], [place]ETH [address] Assigned PCP 03/03/20 05/25/20 [place] [address] [place] [address] Assigned PCP 05/26/20 09/28/20 [place] [address] [place] [address] Assigned PCP 09/29/20 07/31/22 Jesú[place] [address] [place] [address] Assigned Musculoskeletal Provider 10/20/20 04/17/22 Alfreda Ray PA-C [address] [place] [address] 137852 Referring Physician Family Medicine 12/31/21 Katrin Orellana PA-C [address] [place] [address] Physician Supervisor Instrument Mechanics Dermatology 12/31/21 Shanna Vang PA-C [address] [place] [address] 161914 Assigned Cancer Care Provider 01/10/22 Fransisco Eddy MD [address] [place] [address] 409115 Assigned Rheumatology Provider 05/09/22 [place] [address] [place], [place] 1627768 Assigned Pain Medication Provider 06/29/22 09/04/22 [place] [address] [place] [address] Assigned PCP 08/15/22 08/28/22 Katrin Orellana PA-C [address] [place] [address] 793995 Assigned Surgical Provider 08/15/22 02/10/24 Cristina Hsieh [facility] [address]305 [facility] [place] [address] Pharmacist Pharmacist 09/07/22 Alfreda Ray PA-C [address] [place] [address] 90673 Assigned Pain Medication Provider 09/05/22 09/10/23 Alfreda Ray PA-C [address] [place] [address] 55964 Assigned PCP 08/29/22 Cristina Hsieh, [facility] [address] [place] [address] Assigned MTM Pharmacist 09/26/22 Dakota Tatum MD [address] [place] [address] 18392 Cardiovascular Disease 03/25/23 Dakota Tatum MD [address] [place] [address]342 Assigned Heart and Vascular Provider 05/01/23 [place] [address] [place], [address] [address] Assigned Musculoskeletal Provider 04/12/24 documented as of this encounter
--- OUTSIDE RECORDS SUMMARY | 2024-07-28 14:29 | XMS_ITS | Encounter Summary ---
Author Organization [place] Address [address] [place] [address]. [place] [address] Care Team Providers Care Viticulturist Name Role Phone Alfreda Ray PA-C Primary Care Provider + Alfreda Ray PA-C Unavailable [phone] Katrin Orellana PA-C Unavailable +[phone] Shanna Vang PA-C Unavailable +[phone] Fransisco Eddy MD Unavailable +[phone] Katrin Orellana PA-C Unavailable +[phone] Cristina Hsieh [facility] Unavailable +[phone] Alfreda Ray PA-C Unavailable + [phone] Alfreda Ray PA-C Unavailable + [phone] Cristina Hsieh [facility] Unavailable +[phone] Dakota Tatum MD Unavailable + [phone] Dakota Tatum MD Unavailable + [phone] Srinivas Marie DO Unavailable [phone] Encounter Details Date Type Department Care Team (Late st Contact Info) Description 12/28/2022 MyC Medical Advice [facility] [address] [place] [address] Gia Weller Social History Tobacco [...] Sex Assigned at Female 08/17/2018 7:56 AM CHOP SAW OPERATOR Legal Sex Female 4:24 AM CHOP SAW OPERATOR Gender Identity Female 08/17/2018 7:56 AM CHOP SAW OPERATOR Sexual Orientation Straight 08/17/2018 7: 56 AM CHOP SAW OPERATOR COVID-19 Exposure Response Date Recorded In [...] Visit [facility] [address] 200 [place] [phone] Fransisco Eddy MD [address] [place] [address] 515385 09/18/2024 2:00 PM CDT Virtual Visit [facility] [address] [place] [address] Shanna Vang, PARobinson [address] [address] 03/29/2025 3:40 PM CDT Office Visit [address] [place] [phone] Alfreda Ray PA-C [address] [place] [address] 958372 documented as of this encounter Visit Diagnoses Not on filedocumented in this encounter Additional Health Concerns Assessment Noted Time PHQ-9 Depression Total Score: 4 09/05/19 22 10:39 AM CDT documented as of this encounter Care Teams Viticulturist Relationship Specialty Start Date End Date Alfreda Ray PA-C [address] [place] [address] PCP - General Family Medicine 12/30/21 Alfreda Ray PA-C [address] [place] [address] 662992 Referring Physician Family Medicine 12/31/21 Katrin Orellana PA-C [address] [place] [address] 682445 Physician Gold Burnisher Dermatology 12/31/21 Shanna Vang PA-C [address] 304914 Assigned Cancer Care Provider 01/10/22 Fransisco Eddy MD [address] [place] [address] 465105 Assigned Rheumatology Provider 05/09/22 Katrin Orellana PA-C [address] [place] [address] 110755 Assigned Surgical Provider 08/15/22 02/10/24 Cristina Hsieh [facility] [address] [facility] [place] [address] Pharmacist Pharmacist 09/07/22 Alfreda Ray PA-C [address] [place] [address] 78178 Assigned Pain Medication Provider 09/05/22 09/10/23 Alfreda Ray PA-C [address] [place] [address] 94750 Assigned PCP 08/29/22 Cristina Hsieh, [facility] [address] [place] [address] 6[address] Assigned MTM Pharmacist 09/26/22 Dakota Tatum MD [address] [place] [address]6518 Cardiovascular Disease 03/25/23 Dakota Tatum MD [address] [place] [address] 46594 Assigned Heart and Vascular Provider 05/01/23 [place] [address] [place] , [address] [address] Assigned Musculoskeletal Provider 04/12/24 documented as of this encounter
--- OUTSIDE RECORDS SUMMARY | 2024-07-28 14:29 | XMS_ITS | Encounter Summary ---
Author Organization [facility] [place] Address [address] [place] [address] Care Team Providers Care Sample Driller Name Role Phone Alfa Marcelo MD Primary Care Provider Ajay Dailey MD Primary Care Provider [phone] Esperanza Gatica MD Primary Care Provider Esperanza Gatica MD Unavailable +[phone] Esperanza Gatica MD Unavailable +[phone] Esperanza Gatica MD Unavailable +[phone] Esperanza Gatica MD Unavailable +[phone] Esperanza Gatica MD Unavailable +[phone] Esperanza Gatica MD Unavailable +[phone] Jesús Orourke MD Unavailable Alfreda RayC Primary Care Provider + Alfreda RayC Unavailable +[phone] Katrin OrellanaC Unavailable Shanna Vang-C Unavailable +[phone] Franissco Eddy MD Unavailable +[phone] Esperanza Gatica MD Unavailable +[phone] Esperanza Gatica MD Unavailable +[phone] Katrin Orellana-C Unavailable Cristina Hsieh [facility] Unavailable +[phone] Cory Alfreda Liu PA-C Unavailable +[phone] Cory Alfreda LOERAC Unavailable +[phone] Cristina Hsieh [facility] Unavailable +[phone] Dakota Tatum MD Unavailable +[phone] Dakota Tatum MD Unavailable +[phone] Srinivas Marie DO Unavailable [phone] Reason for Visit * Reason Onset Date Comments MyChart Communication 07/05/2007 blood pres sure Encounter Details Date Type Department Care Team (Latest Contact Info) Description 07/05/2007 MyC Medical Advice [address] [address] [place] [address] MyChart Communication (blood pressure) Social History Tobacco Use Types Packs/Day Years Used Date Smoking Tobacco: Former Cigarettes Q uit: 06/21/1973 Alcohol Use Standard Drinks/Week Comments Yes 0 (1 standard drink = 0.6 oz pur e alcohol) rarely Comments No Sex and Gender Information Value Date Recorded Sex Assigned at Female 08/17/2018 7:56 AM COMPENSATION COORDINATOR Legal Sex Female 4:24 AM COMPENSATION COORDINATOR Gender Identity Female 08/17/2018 7:56 AM COMPENSATION COORDINATOR Sexual Orientation Straight 08/17/2018 7: 56 AM COMPENSATION COORDINATOR documented as of this encounter Plan of Treatment Upcoming Encounters Date Type Department Care Team (Late st Contact Info) Description 09/07/2024 10:00 AM CDT Office Visit [address] 200 [place] [phone] Fransisco Eddy MD [address] [facility] [place] [address] [place] [address] 09/18/2024 2:00 PM CDT Virtual Visit [facility] [address] [place] [address] Shanna Vang PA-C [address] [place] [address] 03/29/2025 3:40 PM CDT Office Visit [address] [place] [phone] Alfreda Ray PA-C [address] [place] [address] 210402 documented as of this encounter Visit Diagnoses Not on filedocumented in this encounter Additional Health Concerns Infection Onset Date Last Indicated Resolved Time Rule Out COVID-19 05/08/2021 05/08/2021 05/09/2021 9:08 PM COMPENSATION COORDINATOR documented as of this encounter Care Teams Sample Driller Relationship Specialty Start Date End Date Alfa Marcelo MD [facility] [address] [place] [address] PCP - General 01/22/04 01/28/11 Ajay Dailey MD [facility] [address] [place] [address] PCP - General Family Practice 01/29/11 10/12/11 Esperanza Gatica MD [facility] [address] [place] [address] PCP - General Family Practice 10/13/11 12/29/21 [place] [address] [place] [address] PCP - Assigned PCP 12/05/17 08/23/18 Alfreda Ray PA-C [address] [place] [address] PCP - General Family Medicine 12/30/21 [place] [address] [place] [address] Assigned PCP 12/05/17 09/30/19 [place] [address] [place] [address] Assigned PCP 10/01/19 03/02/20 [place] [address] [place] [address] Assigned PCP 03/03/20 05/25/20 [place] [address] [place] [address] Assigned PCP 05/26/20 09/28/20 [place] [address] [place] [address] Assigned PCP 09/29/20 07/31/22 Jesú[place] [address] [address] [place] [address] Assigned Musculoskeletal Provider 10/20/20 04/17/22 Alfreda Ray PA-C [address] [place] [address] 290682 Referring Physician Family Medicine 12/31/21 Ktarin Orellana PA-C [address] [place] [address] 322165 Physician Regulatory Consultant Dermatology 12/31/21 Shanna Vang PA-C [address] [place] [address] 838084 Assigned Cancer Care Provider 01/10/22 Fransisco Eddy MD [address] [place] [address] 941015 Assigned Rheumatology Provider 05/09/22 [place] [address] [place] [address] Assigned Pain Medication Provider 06/29/22 09/04/22 [place] [address] [place] [address] Assigned PCP 08/15/22 08/28/22 Katrin Orellana PA-C [address] [place] [address] 453405 Assigned Surgical Provider 08/15/22 02/10/24 Cristina Hsieh [facility] [address] [facility] [place] [address] Pharmacist Pharmacist 09/07/22 Alfreda Ray PA-C [address] [place] [address] Assigned Pain Medication Provider 09/05/22 09/10/23 Alfreda Ray PA-C [address] [place] [address] Assigned PCP 08/29/22 Cristina Hsieh, [facility] [address] [place] [address] Assigned MTM Pharmacist 09/26/22 Dakota Tatum MD [address] [place] [address] Cardiovascular Disease 03/25/23 Dakota Tatum MD [address] [place] [address] Assigned Heart and Vascular Provider 05/01/23 [place] [address] [facility] [address] [address] Assigned Musculoskeletal Provider 04/12/24 documented as of this encounter
--- OUTSIDE RECORDS SUMMARY | 2024-07-28 14:29 | XMS_ITS | Encounter Summary ---
Author Organization [facility] Address [address] [place] [address] Care Team Providers Care National Park Ranger Name Role Phone Esperanza Gatica MD Primary Care Provider + Esperanza Gatica MD Unavailable +[phone] Esperanza Gatica MD Unavailable +[phone] Esperanza Gatica MD Unavailable +[phone] Esperanza Gatica MD Unavailable +[phone] Esperanza Gatica MD Unavailable +[phone] Esperanza Gatica MD Unavailable +[phone] Jesús Orourke MD Unavailable Alfreda RayC Primary Care Provider + Alfreda Ray PA-C Unavailable + [phone] Katrin Orellana PA-C Unavailable +[phone] Shanna VangC Unavailable +[phone] Fransisco Eddy MD Unavailable +[phone] Esperanza Gatica MD Unavailable +[phone] Esperanza Gatica MD Unavailable +[phone] Katrin Orellana PA-C Unavailable Cristina Hsieh [facility] Unavailable Cory Alfreda Liu PA-C Unavailable +[phone] Ho Raymustapha Liu PA-C Unavailable +[phone] Cristina Hsieh [facility] Unavailable +[phone] Dakota Tatum MD Unavailable [phone] Dakota Tatum MD Unavailable [phone] Srinivas Marie DO Unavailable [phone] Reason for Visit * Reason Onset Date Comments Refill Request 02/28/2015 Tramadol 50mg Encounter Details Date Type Department Care Team (Late st Contact Info) Description 02/28/2015 MyC Refill [address], [facility] [[email or web address]] [address] [place] [address] [place] [address] [place] [address] Refill Request (Tramadol 50mg) Social [...] Sex Assigned at Female 08/17/2018 7:56 AM SMASH HAND Legal Sex Female 4:24 AM SMASH HAND Gender Identity Female 08/17/2018 7:56 AM SMASH HAND Sexual Orientation Straight 08/17/2018 7: 56 AM SMASH HAND documented as of this encounter Miscellaneous Notes * Telephone Encounter - Leigha Rinaldi RN - 02/28/2015 10:08 AM CDT Tramadol 50mg Last Written Prescription Date: 12/06/2014 Last Fill Quantity: 90, # refills: 0 Last Office Visit with [facility] primary care provider: 12/06/2014 Future Office visit: Routing refill request to provider for review/approval because: Drug not on the [facility] refill protocol or controlled substance. Leigha Rinaldi RN * Telephone Encounter - Leigha Rinaldi RN - 02/28/2015 10:07 AM [facility] Original authorizing provider: Esperanza Gatica MD Alexandria Bradshaw would like a refill of the following medications: traMADol (ULTRAM) 50 MG tablet [Esperanza Gatica MD] Preferred pharmacy: [id number] Comment: documented in this encounter Plan of Treatment Upcoming Encounters Date Type Department Care Team (Late st Contact Info) Description 09/07/2024 10:00 AM CDT Office Visit [facility] [address] [phone] Fransisco Eddy MD [address] [place] [address] 88 [place] [address] 09/18/2024 2:00 PM CDT Virtual Visit [facility] [address] [place] [address] Shanna Vang PARobinson [address] [address] 03/29/2025 3:40 PM CDT Office Visit [address] [place] [phone] Alfreda Ray PA-C [address] [place] [address] 660282 documented as of this encounter Visit Diagnoses Diagnosis HTN (hypertension), benign Essential hypertension, benign documented in this encounter Additional Health Concerns Infection Onset Date Last Indicated Resolved Time Rule Out COVID-19 05/08/202105/0805/08/2021 05/09/2021 9:08 PM SMASH HAND documented as of this encounter Care Teams National Park Ranger Relationship Specialty Start Date End Date Esperanza Gatica MD PCP - General Family Practice 10/13/11 12/29/21 [place] [address] [place] [address] PCP - Assigned PCP 12/05/17 08/23/18 Alfreda Ray PA-C [address] [place] [address] PCP - General Family Medicine 12/30/21 [place] [address] [place] [address] Assigned PCP 12/05/17 09/30/19 [place] [address] [address] [address] Assigned PCP 10/01/19 03/02/20 [place] [address] [address] [address] Assigned PCP 03/03/20 05/25/20 [place] [address] [address] [address] Assigned PCP 05/26/20 09/28/20 [place] [address] [address] [address] Assigned PCP 09/29/20 07/31/22 Jesú[place] [address] [address] Assigned Musculoskeletal Provider 10/20/20 04/17/22 Alfreda Ray PA-C [address] [place] [address] 381272 Referring Physician Family Medicine 12/31/21 Katrin Orellana PA-C [address] [place] [address] Physician Tennis Player Dermatology 12/31/21 Shanna Vang PA-C [facility] [address] [address] Assigned Cancer Care Provider 01/10/22 Fransisco Eddy MD [address] [place] [address] Assigned Rheumatology Provider 05/09/22 [place] [address] [place] [address] Assigned Pain Medication Provider 06/29/22 09/04/22 [place] [address] [place] [address] Assigned PCP 08/15/22 08/28/22 Katrin Orellana PA-C [address] [place] [address] [facility] [address] [place] [address] Assigned Surgical Provider 08/15/22 02/10/24 Cristina Hsieh [facility] [address] [facility] [place] [address] Pharmacist Pharmacist 09/07/22 Alfreda Ray PA-C [address] [place] [address] Assigned Pain Medication Provider 09/05/22 09/10/23 Alfreda Ray PA-C [address] [place] [address] Assigned PCP 08/29/22 Cristina Hsieh [facility] [address] [place] [address] Assigned MTM Pharmacist 09/26/22 Dakota Tatum MD [address] [place] [address]642 Cardiovascular Disease 03/25/23 Dakota Tatum MD [address] [place] [address] Assigned Heart and Vascular Provider 05/01/23 [place] [address] [address], [address] [address] Assigned Musculoskeletal Provider 04/12/24 documented as of this encounter
--- OUTSIDE RECORDS SUMMARY | 2024-07-28 14:29 | XMS_ITS | Encounter Summary ---
Author Organization [place] Address [address] [place] [address] Care Team Providers Care Procurement Inspector Name Role Phone Esperanza Gatica MD Primary Care Provider + Esperanza Gatica MD Unavailable + Jesús Orourke MD Unavailable Alfreda Ray-C Primary Care Provider + Alfreda RayC Unavailable +[phone] Katrin Orellana PA-C Unavailable +[phone] Shanna Vang PA-C Unavailable +[phone] Fransisco Eddy MD Unavailable +[phone] Esperanza Gatica MD Unavailable + Esperanza Gatica MD Unavailable + Katrin OrellanaC Unavailable +[phone] Cristina Hsieh [facility] Unavailable +[phone] Alfreda Ray PA-C Unavailable +[phone] Alfreda Ray PA-C Unavailable +[phone] Cristina Hsieh [facility] Unavailable +[phone] Dakota Tatum MD Unavailable Dakota Tatum MD Unavailable + [phone] Srinivas Marie DO Unavailable [phone] Reason for Referral * Consultation (Routine: Next available opening) - Closed Specialty Diagnoses / Procedures Referred By Contmarcus t Referred To Contact Rheumatology Diagnoses Rheumatoid factor positive Polyarthralgia Alfreda Ray PA-C [address] [place] [address] Phone: tel: fax: Referral ID Status Reason Start Date Expiration Date Visits Re quested Visits Authorized [id number] Closed 10/07/2021 10/07/2022 1 1 Question Answer Reason for Referral Joint Pain, Other (Use Comments) - POS RA - persistent joint pain Scheduling Instructions: [facility] Rheumatology Plain Clothes Police Officer will call you to coordinate your care as prescribed by your provider. A product representative will call you within 1 business day to help schedule your appointment, or you may contact the Plain Clothes Police Officer Director Of Application Development at [phone]. Comments Please be aware that coverage of these services is subject to the terms and limitations of your health insurance plan. Call member services at your health plan with any benefit or coverage questions. [facility] Rheumatology Plain Clothes Police Officer will call you to coordinate your care as prescribed by your provider. A product representative will call you within 1 business day to help schedule your appointment, or you may contact the Plain Clothes Police Officer Director Of Application Development at [phone]. Reason for Visit * Reason Onset Date Comments MyChart Communication 10/05/2021 Encounter Details Date Type Department Care Team (Late st Contact Info) Description 10/05/2021 MyC Medical Advice [address] [place] [phone] Alfreda Ray PA-C [address] [place] [address] [phone] MyChart Communication Social History Tobacco Use Types [...] Sex Assigned at Female 08/17/2018 7:56 AM DIAMOND SIZER AND GRADER Legal Sex Female 4:24 AM DIAMOND SIZER AND GRADER Gender Identity Female 08/17/2018 7:56 AM DIAMOND SIZER AND GRADER Sexual Orientation Straight 08/17/2018 7: 56 AM DIAMOND SIZER AND GRADER COVID-19 Exposure Response Date Recorded In the [...] advise Thank you Camila Ackerman RN, BSN [place] Triage documented in this encounter Plan of Treatment Upcoming Encounters Date Type Department Care Team (Late st Contact Info) Description 09/07/2024 10:00 AM CDT Office Visit [facility] [address] [phone] Fransisco Eddy MD [address] [place] [address] 88 [place] [address] 09/18/2024 2:00 PM CDT Virtual Visit [facility] [place] [address] 105 [place] [phone] Shanna Vang PA-C [address] [place] [address] 03/29/2025 3:40 PM CDT Office Visit [address] [phone] Alfreda Ray PA-C [address] [place] [address] Scheduled Referrals Name Type Priority Associated Diagnoses Order Schedule Adult Rheumatology Plain Clothes Police Officer Referral Referral Routine: Next available opening Rheumatoid [...] documented as of this encounter Care Teams Procurement Inspector Relationship Specialty Start Date End Date Esperanza Gatica MD PCP - General Family Practice 10/13/11 12/29/21 Alfreda Ray PA-C [address] [place] [address] 492582 PCP - General Family Medicine 12/30/21 [place] [address] [place] [address] Assigned PCP 09/29/20 07/31/22 [place] [address] [place] [address] Assigned Musculoskeletal Provider 10/20/20 04/17/22 Alfreda Ray PA-C [address] [place] [address] Referring Physician Family Medicine 12/31/21 Katrin Orellana PA-C [address] [place] [address] 421455 Physician Human Resources Safety Manager Dermatology 12/31/21 Shanna Vang PA-C [address] [place] [address] [phone] Assigned Cancer Care Provider 01/10/22 Fransisco Eddy MD [address] [place] [address] [id number] Assigned Rheumatology Provider 05/09/22 [place] [address] [place] [address] Assigned Pain Medication Provider 06/29/22 09/04/22 [place] [address] [place] 6088068 Assigned PCP 08/15/22 08/28/22 Katrin Orellana PA-C [address] [place] [address] 321715 Assigned Surgical Provider 08/15/22 02/10/24 Cristina Hsieh [facility] [address] [facility] [place] [address] Pharmacist Pharmacist 09/07/22 Alfreda Ray PA-C [address] [place] [address] Assigned Pain Medication Provider 09/05/22 09/10/23 Alfreda Ray PA-C [address] [place] [address] 746142 Assigned PCP 08/29/22 Cristina Hsieh [facility] [address] [place] [address] Assigned MTM Pharmacist 09/26/22 Dakota Tatum MD [address] [place] [address] 459505 Cardiovascular Disease 03/25/23 Dakota Tatum MD [address] [place] [address] 178125 Assigned Heart and Vascular Provider 05/01/23 [place] [address] [address]UM, [address] [address] Assigned Musculoskeletal Provider 04/12/24 documented as of this encounter
--- OUTSIDE RECORDS SUMMARY | 2024-07-28 14:29 | XMS_ITS | Encounter Summary ---
Author Organization [place] Address [address] [place] [address] Care Team Providers Care Operating Systems Specialist Name Role Phone Esperanza Gatica MD Primary Care Provider + Esperanza Gatica MD Unavailable + Jesús Orourke MD Unavailable Alfreda Ray-C Primary Care Provider + Alfreda RayC Unavailable +[phone] Katrin Orellana PA-C Unavailable +[phone] Shanna Vang PA-C Unavailable +[phone] Fransisco Eddy MD Unavailable +[phone] Esperanza Gatica MD Unavailable + Esperanza Gatica MD Unavailable + Katrin OrellanaC Unavailable +[phone] Cristina Hsieh [facility] Unavailable +[phone] Alfreda Ray PA-C Unavailable +2600 Alfreda Ray PA-C Unavailable +[phone] Cristina Hsieh [facility] Unavailable +[phone] Dakota Tatum MD Unavailable Dakota Tatum MD Unavailable + [phone] Srinivas Marie Unavailable [phone] Encounter Details Date Type Department Care [...] Sex Assigned at Female 08/17/2018 7:56 AM ADVANCED MANAGER Legal Sex Female 4:24 AM ADVANCED MANAGER Gender Identity Female 08/17/2018 7:56 AM ADVANCED MANAGER Sexual Orientation Straight 08/17/2018 7: 56 AM ADVANCED MANAGER documented as of this encounter Plan of Treatment Upcoming Encounters Date Type Department Care Team (Late st Contact Info) Description 09/07/2024 10:00 AM CDT Office Visit [facility] [address] [phone] Fransisco Eddy MD [address] [place] [address] 88 [place] [address] 09/18/2024 2:00 PM CDT Virtual Visit [facility] [place] [address] 105 [place] [address] Shanna Vang PARobinson [address] [place] [address] 140854 03/29/2025 3:40 PM CDT Office Visit [address] [place] [phone] Alfreda Ray PA-C [address] [place] [address] 885802 documented as of this encounter Visit Diagnoses Not on filedocumented in this encounter Additional Health Concerns Assessment Noted Time PHQ-9 Depression Total Score: 0 08/31/19 21 11:22 AM ADVANCED MANAGER documented as of this encounter Care Teams Operating Systems Specialist Relationship Specialty Start Date End Date Esperanza Gatica MD PCP - General Family Practice 10/13/11 12/29/21 Alfreda Ray PA-C [address] [place] [address] 364002 PCP - General Family Medicine 12/30/21 [place] [address] [place] [address] Assigned PCP 09/29/20 07/31/22 [place] [address] [address] Assigned Musculoskeletal Provider 10/20/20 04/17/22 Alfreda Ray PA-C [address] [place] [address] [phone] Referring Physician Family Medicine 12/31/21 Katrin Orellana PA-C [address] [place] [address] 98 [place], [place] 864845 Physician Gray Tender Dermatology 12/31/21 Shanna Vang PA-C [address] [place] [address] 045864 Assigned Cancer Care Provider 01/10/22 Fransicso Eddy MD [address] [place] [address] Assigned Rheumatology Provider 05/09/22 [place] [address] [place] [address] Assigned Pain Medication Provider 06/29/22 09/04/22 [place] [address] [place] [address] Assigned PCP 08/15/22 08/28/22 Katrin Orellana PA-C [address] [place] [address] Assigned Surgical Provider 08/15/22 02/10/24 Cristina Hsieh [facility] [address] [facility] [place]ETH [place]DEZ [address] Pharmacist Pharmacist 09/07/22 Alfreda Ray PA-C [address] [place] [address] 8[address]66 Assigned Pain Medication Provider 09/05/22 09/10/23 Alfreda Ray PA-C [address] [place] [address] 67[address] Assigned PCP 08/29/22 Cristina Hsieh [facility] [address] [address] Assigned MTM Pharmacist 09/26/22 Dakota Tatum MD 6 [place] [address] Cardiovascular Disease 03/25/23 Dakota Tatum MD 6 [place], [place] 600345 Assigned Heart and Vascular Provider 05/01/23 [place] [address] [address] GASTELUM, [address] [id number] Assigned Musculoskeletal Provider 04/12/24 documented as of this encounter
--- OUTSIDE RECORDS SUMMARY | 2024-07-28 14:29 | XMS_ITS | Encounter Summary ---
Author Organization [place] Address [address] [place] [address] Care Team Providers Care Blueprint Reader Name Role Phone Alfreda Ray PA-C Primary Care Provider + Alfreda Ray PA-C Unavailable [phone] Katrin Orellana PA-C Unavailable +[phone] Shanna Vang PA-C Unavailable +[phone] Fransisco Eddy MD Unavailable Katrin Orellana PA-C Unavailable +[phone] Cristina Hsieh [facility] Unavailable +[phone] Alfreda Ray PA-C Unavailable +[phone] Cristina Hsieh [facility] Unavailable +[phone] Dakota Tatum MD Unavailable [phone] Dakota Tatum MD Unavailable +[phone] Srinivas Marie DO Unavailable [phone] Encounter Details Date Type Department Care Team (Late st Contact Info) Description 10/21/2023 MyC Medical Advice [facility] [address] [address] Gia Weller Social History Tobacco [...] an overnight skilled nursing, or couch-surfing.) Yes 05/18/2023 Are you worried [...] Sex Assigned at Female 08/17/2018 7:56 AM FOAM TANK LAMINATOR Legal Sex Female 4:24 AM FOAM TANK LAMINATOR Gender Identity Female 08/17/2018 7:56 AM FOAM TANK LAMINATOR Sexual Orientation Straight 08/17/2018 7: 56 AM FOAM TANK LAMINATOR documented as of this encounter Plan of Treatment Upcoming Encounters Date Type Department Care Team (Azul Contact Info) Description 09/07/2024 10:00 AM CDT Office Visit [facility] [address] [place] [phone] Fransisco Eddy MD [address] [facility] [address] [place] [address] 09/18/2024 2:00 PM CDT Virtual Visit [facility] [address] [facility] [address] [place] [address] Shanna Vang PA-C [address] [place] [address] 224984 03/29/2025 3:40 PM CDT Office Visit [address] [phone] Alfreda Ray PA-C [address] [place] [address] [phone] documented as of this encounter Visit Diagnoses Not on filedocumented in this encounter Additional Health Concerns Assessment Noted Time PHQ-9 Depression Total Score: 5 03/09/20 23 10:57 AM CDT documented as of this encounter Care Teams Blueprint Reader Relationship Specialty Start Date End Date Alfreda Ray PA-C [address] [place] [address]111 PCP - General Family Medicine 12/30/21 Alfreda Ray PA-C [address] [place] [address] Referring Physician Family Medicine 12/31/21 Katrin Orellana PA-C [address] [address] Physician Global Implementation Manager Dermatology 12/31/21 Shanna Vang PA-C [address] [place] [address] Assigned Cancer Care Provider 01/10/22 Fransisco Eddy MD [address] [place] [address] Assigned Rheumatology Provider 05/09/22 Katrin Orellana PA-C [address] [place] [address] Assigned Surgical Provider 08/15/22 02/10/24 Cristina Hsieh [facility] [address] [place] [address] [place] [address] Pharmacist Pharmacist 09/07/22 Alfreda Ray PA-C [address] [place] [address] [phone] Assigned PCP 08/29/22 Cristina Hsieh [facility] [address] [place] [address] Assigned MTM Pharmacist 09/26/22 Dakota Tatum MD [address] [place] [address] 149075 Cardiovascular Disease 03/25/23 Dakota Tatum MD [address] [place] [address] 079665 Assigned Heart and Vascular Provider 05/01/23 [place] [address] [address], [address] 019137 Assigned Musculoskeletal Provider 04/12/24 documented as of this encounter
--- OUTSIDE RECORDS SUMMARY | 2024-07-28 14:29 | XMS_ITS | Encounter Summary ---
Author Organization [place] Address [address] [place] [address] Care Team Providers Care Credit Support Specialist Name Role Phone Esperanza Gatica MD Primary Care Provider + Esperanza Gatica MD Unavailable +[phone] Esperanza Gatica MD Unavailable +[phone] Esperanza Gatica MD Unavailable +[phone] Esperanza Gatica MD Unavailable +[phone] Esperanza Gatica MD Unavailable +[phone] Esperanza Gatica MD Unavailable +[phone] Jesús Orourke MD Unavailable Alfreda RayC Primary Care Provider + Alfreda Ray PA-C Unavailable + [phone] Katrin Orellana PA-C Unavailable [phone] Shanna VangC Unavailable +[phone] Fransisco Eddy MD Unavailable [phone] Esperanza Gatica MD Unavailable +[phone] Esperanza Gatica MD Unavailable +[phone] Katrin Orellana PA-C Unavailable [phone] Cristina Hsieh [facility] Unavailable Cory Alfreda Liu PA-C Unavailable Ho Raymustapha Liu PA-C Unavailable +[phone] Cristina Hsieh [facility] Unavailable Dakota Ttaum MD Unavailable Dakota Tatum MD Unavailable [phone] Srinivas Marie DO Unavailable [phone] Reason for Visit * Reason Onset Date Comments Refill Request 07/04/2015 Edilberto Syed Encounter Details Date Type Department Care Team (Late st Contact Info) Description 07/04/2015 Migdalia Alcaraz [address], [address] [place] [address] [place] [address] [place] [address] Refill Request (Edilberto Syed) Social [...] Assigned at Female 08/17/2018 7:56 AM COTTON WEIGHER OPERATOR Legal Sex Female 4:24 AM COTTON WEIGHER OPERATOR Gender Identity Female 08/17/2018 7:56 AM COTTON WEIGHER OPERATOR Sexual Orientation Straight 08/17/2018 7: 56 AM COTTON WEIGHER OPERATOR documented as of this encounter Miscellaneous Notes * Telephone Encounter - Leigha Rinaldi RN - 07/04/2015 10:51 AM CST Deannecor Last Written Prescription Date: 01/21/2015 Last Fill Quantity: 90, # refills: 1 Last Office Visit with [facility] primary care provider: 04/08/2015 CHOL 137 07/10/2014 HDL 54 07/10/2014 LDL 62 07/10/2014 TRIG 105 07/10/2014 CHOLHDLRATIO 2.5 07/10/2014 Tenormin Last Written Prescription Date: 01/15/2015 Last Fill Quantity: 90, # refills: 1 Last Office Visit with [facility] primary care provider: 04/08/2015 Future Office Visit: BP Readings from Last 3 Encounters: 04/08/15 112/60 12/06/14 126/64 08/07/14 130/88 Medication is being filled for 1 time refill only due to: Patient needs labs Cholesterol. Leigha Rinaldi RN ON WEIGHER OPERATOR * Telephone Encounter - Leigha Rinaldi RN - 07/04/2015 10:51 AM [facility] Original authorizing provider: MD Alexandria Brannon would like a refill of the following medications: atenolol (TENORMIN) 25 MG tablet [Esperanza Gatica MD] simvastatin (ZOCOR) 20 MG tablet [Esperanza Gatica MD] Preferred pharmacy: [id number] Comment: I'm not out of Simvastatin, but we are leaving for a couple of weeks on the & I want to besure I have enough to last until we return. ON WEIGHER OPERATOR documented in this encounter Plan of Treatment Upcoming Encounters Date Type Department Care Team (Late st Contact Info) Description 09/07/2024 10:00 AM CDT Office Visit [facility] [address] [place] [phone] Fransisco Eddy MD [address] [place] [address] 247195 09/18/2024 2:00 PM CDT Virtual Visit [facility] [address] [place] [phone] Shanna Vang, PAFilemonC [address] [place] [address] 03/29/2025 3:40 PM CDT Office Visit [address] [phone] Alfreda Ray PA-C [address] [place] [address] documented as of this encounter Visit Diagnoses Diagnosis HTN (hypertension), benign Essential hypertension, benign Hyperlipidemia LDL goal <160 Other and unspecified hyperlipidemia documented in this encounter Additional Health Concerns Infection Onset Date Last Indicated Resolved Time Rule Out COVID-19 05/08/2021 05/08/2021 05/09/2021 9:08 PM COTTON WEIGHER OPERATOR documented as of this encounter Care Teams Credit Support Specialist Relationship Specialty Start Date End Date Esperanza Gatica MD PCP - General Family Practice 10/13/11 12/29/21 [place] [address] [address] GARCIA [address] PCP - Assigned PCP 12/05/17 08/23/18 Alfreda Ray PA-C [address] [place] [address] PCP - General Family Medicine 12/30/21 [place] [address] [address] [address] Assigned PCP 12/05/17 09/30/19 [place] [address] [address] [address] Assigned PCP 10/01/19 03/02/20 [place] [address] [place] [id number] Assigned PCP 03/03/20 05/25/20 [place] [address] [place] [id number] Assigned PCP 05/26/20 09/28/20 [place] [address] [place] [id number] Assigned PCP 09/29/20 07/31/22 Jesú[place] [address] [place] [address] Assigned Musculoskeletal Provider 10/20/20 04/17/22 Alfreda Ray PA-C [address] [place] [address] 933712 Referring Physician Family Medicine 12/31/21 Katrin Orellana PA-C [address] [place] [address] 183955 Physician Clay Puddler Dermatology 12/31/21 Shanna Vang PA-C [address] [place] [address] 004364 Assigned Cancer Care Provider 01/10/22 Franssico Eddy MD [address] [place] [address] [phone] Assigned Rheumatology Provider 05/09/22 [place] [address] [place] [id number] Assigned Pain Medication Provider 06/29/22 09/04/22 [place] [address] [place] [id number] Assigned PCP 08/15/22 08/28/22 Katrin Orellana PA-C [address] [place] [address] 15992 Assigned Surgical Provider 08/15/22 02/10/24 Cristina Hsieh [facility] [address] [place] [address] [place] [id number] Pharmacist Pharmacist 09/07/22 Alfreda Ray PA-C [address] [place] [address] 51281 Assigned Pain Medication Provider 09/05/22 09/10/23 Alfreda Ray PA-C [address] [place] [address] Assigned PCP 08/29/22 Cristina Hsieh [facility] [address] [phone] Assigned MTM Pharmacist 09/26/22 Dakota Tatum MD [address] [place] [address] Cardiovascular Disease 03/25/23 Dakota Tatum MD [address] [place] [address] Assigned Heart and Vascular Provider 05/01/23 [place] [address] [address], [address] [address] Assigned Musculoskeletal Provider 04/12/24 documented as of this encounter
--- OUTSIDE RECORDS SUMMARY | 2024-07-28 14:29 | XMS_ITS | Encounter Summary ---
Author Organization [place] Address [address] [place] [address] Care Team Providers Care Project Archivist Name Role Phone Alfa Marcelo MD Primary Care Provider Ajay Dailey MD Primary Care Provider [phone] Esperanza Gatica MD Primary Care Provider Esperanza Gatica MD Unavailable +[phone] Esperanza Gatica MD Unavailable [phone] Esperanza Gatica MD Unavailable +[phone] Esperanza Gatica MD Unavailable +[phone] Esperanza Gatica MD Unavailable +[phone] Esperanza Gatica MD Unavailable +[phone] Jesús Orourke MD Unavailable Alfreda RayC Primary Care Provider + Alfreda RayC Unavailable +[phone] Katrin OrellanaC Unavailable Shanna Vang-C Unavailable +[phone] Fransisco Eddy MD Unavailable +[phone] Esperanza Gatica MD Unavailable +[phone] Esperanza Gatica MD Unavailable +[phone] Katrin OrellanaC Unavailable [phone] Cristina Hsieh [facility] Unavailable +[phone] Cory Alfreda Liu PA-C Unavailable [phone] Cory Alfreda Liu PA-C Unavailable [phone] Cristina Hsieh [facility] Unavailable [phone] Dakota Tatum MD Unavailable [phone] Dakota Tatum MD Unavailable [phone] Srinivas Marie DO Unavailable [phone] Encounter Details Date Type Department Care Team (Late st Contact Info) Description 01/04/2008 MyC Medical Advice [address] [address] Becky eLo MD [address] [address] Social History Tobacco Use Types Packs/Day Years Used Date Smoking Tobacco: Former Cigarettes Q uit: 06/21/1973 Alcohol Use Standard Drinks/Week Comments Yes 0 (1 standard drink = 0.6 oz pur e alcohol) rarely Comments No Sex and Gender Information Value Date Recorded Sex Assigned at Female 08/17/2018 7:56 AM CHROME CLEANER Legal Sex Female 4:24 AM CHROME CLEANER Gender Identity Female 08/17/2018 7:56 AM CHROME CLEANER Sexual Orientation Straight 08/17/2018 7: 56 AM CHROME CLEANER documented as of this encounter Plan of Treatment Upcoming Encounters Date Type Department Care Team (Late st Contact Info) Description 09/07/2024 10:00 AM CDT Office Visit [facility] [address] [address] Fransisco Eddy MD [address] [place] [address] 09/18/2024 2:00 PM CDT Virtual Visit [facility] [address] [place] [phone] Shanna Vang PARobinson [address] [place] [address] 03/29/2025 3:40 PM CDT Office Visit [address] [phone] Alfreda Ray PA-C [address] [place] [address] [phone] documented as of this encounter Visit Diagnoses Not on filedocumented in this encounter Additional Health Concerns Infection Onset Date Last Indicated Resolved Time Rule Out COVID-19 05/08/2021 05/08/2021 05/09/2021 9:08 PM CHROME CLEANER documented as of this encounter Care Teams Project Archivist Relationship Specialty Start Date End Date Alfa Marcelo MD [address] [address] PCP - General 01/22/04 01/28/11 Ajay Dailey MD [address] [address] PCP - General Family Practice 01/29/11 10/12/11 Esperanza Gatica MD [address] [address] PCP - General Family Practice 10/13/11 12/29/21 [place] [address] [place] [address] PCP - Assigned PCP 12/05/17 08/23/18 Alfreda Ray PA-C [address] [place] [address], [place] [address] PCP - General Family Medicine 12/30/21 [place] [address] [place] [address] Assigned PCP 12/05/17 09/30/19 [place] [address] [place] [address] Assigned PCP 10/01/19 03/02/20 [place] [address] [place] [address] Assigned PCP 03/03/20 05/25/20 [place] [address] [place] [address] Assigned PCP 05/26/20 09/28/20 [place] [address] [place] [address] Assigned PCP 09/29/20 07/31/22 Jesú[place] [address] [place], [place] [address] Assigned Musculoskeletal Provider 10/20/20 04/17/22 Alfreda Ray PA-C [address] [place], [place] 740102 Referring Physician Family Medicine 12/31/21 Katrin Orellana PA-C [address] 179885 Physician Library Attendant Dermatology 12/31/21 Shanna Vang PA-C [address] [address] Assigned Cancer Care Provider 01/10/22 Fransisco Eddy MD [address] [place] [address] 767945 Assigned Rheumatology Provider 05/09/22 [place] [address] [place] [address] Assigned Pain Medication Provider 06/29/22 09/04/22 [place] [address] [place] [address] Assigned PCP 08/15/22 08/28/22 Katrin Orellana PA-C [address] [place] [address] 890275 Assigned Surgical Provider 08/15/22 02/10/24 Cristina Hsieh [facility] [address] [facility] [place] [address] Pharmacist Pharmacist 09/07/22 Alfreda Ray PA-C [address] [place] [address] Assigned Pain Medication Provider 09/05/22 09/10/23 Alfreda Ray PA-C [address] [place] [address] Assigned PCP 08/29/22 Cristina Hsieh, [facility] [address] [address] Assigned MTM Pharmacist 09/26/22 Dakota Tatum MD [address] [place] [address] [phone] Cardiovascular Disease 03/25/23 Dakota Tatum MD [address] [place] [address] 879185 Assigned Heart and Vascular Provider 05/01/23 [place] [address] [address]UM, [address] [address] Assigned Musculoskeletal Provider 04/12/24 documented as of this encounter
--- OUTSIDE RECORDS SUMMARY | 2024-07-28 14:29 | XMS_ITS | Encounter Summary ---
Author Organization [place] Address [address] [place] [address] Care Team Providers Care Stewardesses Teacher Name Role Phone Alfa Marcelo MD Primary Care Provider Ajay Dailey MD Primary Care Provider [phone] Esperanza Gatica MD Primary Care Provider Esperanza Gatica MD Unavailable +[phone] Esperanza Gatica MD Unavailable +[phone] Esperanza Gatica MD Unavailable +[phone] Esperanza Gatica MD Unavailable +[phone] Esperanza Gatica MD Unavailable +[phone] Esperanza Gatica MD Unavailable +[phone] Jesús Orourke MD Unavailable Alfreda RayC Primary Care Provider + Alfreda RayC Unavailable +[phone] Katrin OrellanaC Unavailable Shanna Vang-C Unavailable +[phone] Fransisco Eddy MD Unavailable +[phone] Esperanza Gatica MD Unavailable +[phone] Esperanza Gatica MD Unavailable +[phone] Katrin OrellanaC Unavailable Cristina Hsieh [facility] Unavailable +[phone] Cory Alfreda Liu PA-C Unavailable [phone] Cory Alfreda Liu PA-C Unavailable +[phone] Cristina Hsieh [facility] Unavailable [phone] Dakota Tatum MD Unavailable [phone] Dakota Tatum MD Unavailable [phone] Srinivas Marie DO Unavailable [phone] Encounter Details Date Type Department Care Team (Late st Contact Info) Description 11/08/2007 MyC Medical Advice [address] [address] Becky Leo MD [address] [address] Social History Tobacco Use Types Packs/Day Years Used Date Smoking Tobacco: Former Cigarettes Q uit: 06/21/1973 Alcohol Use Standard Drinks/Week Comments Yes 0 (1 standard drink = 0.6 oz pur e alcohol) rarely Comments No Sex and Gender Information Value Date Recorded Sex Assigned at Female 08/17/2018 7:56 AM SUBMARINE OPERATOR Legal Sex Female 4:24 AM SUBMARINE OPERATOR Gender Identity Female 08/17/2018 7:56 AM SUBMARINE OPERATOR Sexual Orientation Straight 08/17/2018 7: 56 AM SUBMARINE OPERATOR documented as of this encounter Plan of Treatment Upcoming Encounters Date Type Department Care Team (Late st Contact Info) Description 09/07/2024 10:00 AM CDT Office Visit [facility] [address] [address] Fransisco Eddy MD [address] [place] [address] 09/18/2024 2:00 PM CDT Virtual Visit [facility] [address] [place] [phone] Shanna Vang PARobinson [address] [place] [address] 03/29/2025 3:40 PM CDT Office Visit [address] [phone] Alfreda Ray PA-C [address] [place] [address] [phone] documented as of this encounter Visit Diagnoses Not on filedocumented in this encounter Additional Health Concerns Infection Onset Date Last Indicated Resolved Time Rule Out COVID-19 05/08/2021 05/08/2021 05/09/2021 9:08 PM SUBMARINE OPERATOR documented as of this encounter Care Teams Stewardesses Teacher Relationship Specialty Start Date End Date Alfa Marcelo MD [address] [address] PCP - General 01/22/04 01/28/11 Ajay Dailey MD [address] [address] PCP - General Family Practice 01/29/11 10/12/11 Esperanza Gatica MD [address] [address] PCP - General Family Practice 10/13/11 12/29/21 [place] [address] [place] [address] PCP - Assigned PCP 12/05/17 08/23/18 Alfreda Ray PA-C [address] [place] [address], [place] [address] PCP - General Family Medicine 12/30/21 [place] [address] [place] [address] Assigned PCP 12/05/17 09/30/19 [place] [address] [place] [address] Assigned PCP 10/01/19 03/02/20 [place] [address] [place] [address] Assigned PCP 03/03/20 05/25/20 [place] [address] [place] [address] Assigned PCP 05/26/20 09/28/20 [place] [address] [place] [address] Assigned PCP 09/29/20 07/31/22 Jesú[place] [address] CHEUNG, [place] [address] Assigned Musculoskeletal Provider 10/20/20 04/17/22 Alfreda Ray PA-C 4151 [place], [place] 249302 Referring Physician Family Medicine 12/31/21 Katrin Orellana PA-C [address] [phone] Physician Nursing Home Assistant Administrator Dermatology 12/31/21 Shanna Vang PA-C [address] [address] Assigned Cancer Care Provider 01/10/22 Fransisco Eddy MD [address] [place] [address] 649995 Assigned Rheumatology Provider 05/09/22 [place] [address] [place] [address] Assigned Pain Medication Provider 06/29/22 09/04/22 [place] [address] [place] [address] Assigned PCP 08/15/22 08/28/22 Katrin Orellana PA-C [address] [place] [address] 351075 Assigned Surgical Provider 08/15/22 02/10/24 Cristina Hsieh [facility] [address] [facility] [place] [address] Pharmacist Pharmacist 09/07/22 Alfreda Ray PA-C [address] [place] [address] Assigned Pain Medication Provider 09/05/22 09/10/23 Alfreda Ray PA-C [address] [place] [address] Assigned PCP 08/29/22 Cristina Hsieh, [facility] [address] [address] Assigned MTM Pharmacist 09/26/22 Dakota Tatum MD [address] [place] [address] 932015 Cardiovascular Disease 03/25/23 Dakota Tatum MD [address] [place] [address] 095445 Assigned Heart and Vascular Provider 05/01/23 [place] [address] [address]ASTELUM, [address] [address] Assigned Musculoskeletal Provider 04/12/24 documented as of this encounter
--- OUTSIDE RECORDS SUMMARY | 2024-07-28 14:29 | XMS_ITS | Encounter Summary ---
Author Organization [place] Address [address] [place] [address] Care Team Providers Care Hvac Design Engineer Name Role Phone Esperanza Gatica MD Primary Care Provider + Esperanza Gatica MD Unavailable +[phone] Esperanza Gatica MD Unavailable +[phone] Esperanza Gatica MD Unavailable +[phone] Esperanza Gatica MD Unavailable +[phone] Esperanza Gatica MD Unavailable +[phone] Esperanza Gatica MD Unavailable +[phone] Jesús Orourke MD Unavailable Alfreda RyaC Primary Care Provider + Alfreda Ray PA-C Unavailable + [phone] Katrin Orellana PA-C Unavailable +[phone] Shanna VangC Unavailable +[phone] Fransisco Eddy MD Unavailable +[phone] Esperanza Gatica MD Unavailable +[phone] Esperanza Gatica MD Unavailable +[phone] Katrin Orellana PA-C Unavailable +[phone] Cristina Hsieh [facility] Unavailable RayAlfreda PA-C Unavailable +[phone] Cory Alfreda Liu PA-C Unavailable +[phone] Cristina Hsieh [facility] Unavailable +[phone] Dakota Tatum MD Unavailable +[phone] Dakota Tatum MD Unavailable +[phone] Srinivas Marie DO Unavailable +[phone] Reason for Visit * Reason Onset Date Comments Refill Request 03/18/2015 Lisinopril-HCTZ Encounter Details Date Type Department Care Team (Late st Contact Info) Description 03/18/2015 MyC Refill [address], [address] [place] [address] [place] [address] [place] [address] Refill Request (Lisinopril-HCTZ) Social History [...] Sex Assigned at Female 08/17/2018 7:56 AM PAINTER AND DECORATOR APPRENTICE Legal Sex Female 4:24 AM PAINTER AND DECORATOR APPRENTICE Gender Identity Female 08/17/2018 7:56 AM PAINTER AND DECORATOR APPRENTICE Sexual Orientation Straight 08/17/2018 7: 56 AM PAINTER AND DECORATOR APPRENTICE documented as of this encounter Miscellaneous Notes * Telephone Encounter - Leigha Rinaldi RN - 03/18/2015 11:02 AM CDT Lisinopril-HCTZ Last Written Prescription Date: 12/24/2014 Last Fill Quantity: 90, # refills: 0 Last Office Visit with [facility] primary care provider: 12/06/2014 Next 5 appointments (look out 90 days) Apr 02, 2015 10:00 AM Pre-Op physical with Esperanza Gatica MD [facility] [address] [facility], [address] [facility] [address] POTASSIUM Date Value Ref Range Status 07/10/2014 4.3 3.4 - 5.3 mmol/L Final CREATININE Date Value Ref Range Status 07/10/2014 0.89 0.52 - 1.04 mg/dL Final BP Readings from Last 3 Encounters: 12/06/14 126/64 08/07/14 130/88 07/10/14 116/60 Prescription approved per [facility] Refill Protocol. Leigha Rinaldi RN * Telephone Encounter - Leigha Rinaldi RN - 03/18/2015 11:01 AM CDTMessage from [facility]: Original authorizing provider: MD Alexandria Brannon would like a refill of the following medications: lisinopril-hydrochlorothiazide (PRINZIDE,ZESTORETIC) 10-12.5 MG per tablet [Esperanza Gatica MD] Preferred pharmacy: [id number] Comment: documented in this encounter Plan of Treatment Upcoming Encounters Date Type Department Care Team (Late st Contact Info) Description 09/07/2024 10:00 AM CDT Office Visit [facility] [address] [phone] Fransisco Eddy MD [address] [place] [address] 88 [place], [place] 590605 09/18/2024 2:00 PM CDT Virtual Visit [facility] [place] [address] [address] [place] [phone] Shanna Vang, PA-C [address] [place] [address] [phone] 03/29/2025 3:40 PM CDT Office Visit [address] [address] Alfreda Ray PA-C [address] [place] [address] documented as of this encounter Visit Diagnoses Diagnosis HTN (hypertension), benign Essential hypertension, benign documented in this encounter Additional Health Concerns Infection Onset Date Last Indicated Resolved Time Rule Out COVID-19 05/08/2021 05/08/2021 05/09/2021 9:08 PM PAINTER AND DECORATOR APPRENTICE documented as of this encounter Care Teams Hvac Design Engineer Relationship Specialty Start Date End Date Esperanza Gatica MD PCP - General Family Practice 10/13/11 12/29/21 [place] [address] [address] GARCIA [address] PCP - Assigned PCP 12/05/17 08/23/18 Alfreda Ray PA-C [address] [place] [address] PCP - General Family Medicine 12/30/21 [place] [address] [address] [address] Assigned PCP 12/05/17 09/30/19 [place] [address] [address]ARCIA [address] Assigned PCP 10/01/19 03/02/20 [place] [address] [place] [address] Assigned PCP 03/03/20 05/25/20 [place] [address] [place] [address] Assigned PCP 05/26/20 09/28/20 [place] [address] [place] [address] Assigned PCP 09/29/20 07/31/22 [place] [address] [place] [address] Assigned Musculoskeletal Provider 10/20/20 04/17/22 Alfreda Ray PA-C [address] [place] [address] 960042 Referring Physician Family Medicine 12/31/21 Katrin Orellana PA-C [address] [place] [address] Physician Nursing Information Systems Coordinator Dermatology 12/31/21 Shanna Vang PA-C [address] [place] [address] [phone] Assigned Cancer Care Provider 01/10/22 Fransisco Eddy MD [address] [place] [address] 980605 Assigned Rheumatology Provider 05/09/22 [place] [address] [place] [address] Assigned Pain Medication Provider 06/29/22 09/04/22 [place] [address] [place] [address] Assigned PCP 08/15/22 08/28/22 Katrin Orellana PA-C [address] [place] [address] 98 [place], [place] 860815 Assigned Surgical Provider 08/15/22 02/10/24 Cristina Hsieh [facility] [address] [facility] LISBETH [place]NA[place]Z [address] Pharmacist Pharmacist 09/07/22 Alfreda Ray PA-C [address] [place] [address] 051792 Assigned Pain Medication Provider 09/05/22 09/10/23 Alfreda Ray PA-C [address] [place] [address] Assigned PCP 08/29/22 Cristina Hsieh [facility] [address] [phone] Assigned MTM Pharmacist 09/26/22 Dakota Tatum MD [address] [place] [address] Cardiovascular Disease 03/25/23 Dakota Tatum MD [address] [place] [address] Assigned Heart and Vascular Provider 05/01/23 [place] [address] [address], [address] [address] Assigned Musculoskeletal Provider 04/12/24 documented as of this encounter
--- OUTSIDE RECORDS SUMMARY | 2024-07-28 14:29 | XMS_ITS | Encounter Summary ---
Author Organization [place] Address [address] [place] [address]. [place] [address] Care Team Providers Care Charger Operator Helper Name Role Phone Alfreda Ray PA-C Primary Care Provider + Alfreda Ray PA-C Unavailable [phone] Katrin Orellana PA-C Unavailable +[phone] Shanna Vang PA-C Unavailable +[phone] Fransisco Eddy MD Unavailable [phone] Katrin Orellana PA-C Unavailable +[phone] Cristina Hsieh [facility] Unavailable [phone] Alfreda Ray PA-C Unavailable + [phone] Alfreda Ray PA-C Unavailable + [phone] Cristina Hiseh [facility] Unavailable [phone] Dakota Tatum MD Unavailable + [phone] Dakota Tatum MD Unavailable + [phone] Srinivas Marie DO Unavailable [phone] Encounter Details Date Type Department Care Team (Late st Contact Info) Description 12/01/2022 MyC Medical Advice [facility] [address] [place] [address] Gia Weller Social History Tobacco [...] Sex Assigned at Female 08/17/2018 7:56 AM SPA DIRECTOR Legal Sex Female 4:24 AM SPA DIRECTOR Gender Identity Female 08/17/2018 7:56 AM SPA DIRECTOR Sexual Orientation Straight 08/17/2018 7: 56 AM SPA DIRECTOR COVID-19 Exposure Response Date Recorded In the [...] [facility] [address] [place] [phone] Fransisco Eddy MD [address] [place] [address] 380285 09/18/2024 2:00 PM CDT Virtual Visit [facility] [address] [place] [address] Shanna Vang, PARobinson [address] [address] 03/29/2025 3:40 PM CDT Office Visit [address] [place] [phone] Alfreda Ray PA-C [address] [place] [address] 601092 documented as of this encounter Visit Diagnoses Not on filedocumented in this encounter Additional Health Concerns Assessment Noted Time PHQ-9 Depression Total Score: 4 09/05/19 22 10:39 AM CDT documented as of this encounter Care Teams Charger Operator Helper Relationship Specialty Start Date End Date Alfreda Ray PA-C [address] [place] [address] PCP - General Family Medicine 12/30/21 Alfreda Ray PA-C [address] [place] [address] 691462 Referring Physician Family Medicine 12/31/21 Katrin Orellana PA-C [address] [place] [address] 438235 Physician Piece Maker Dermatology 12/31/21 Shanna Vang PA-C [address] [phone] Assigned Cancer Care Provider 01/10/22 Fransisco Eddy MD [address] [place] [address] 110795 Assigned Rheumatology Provider 05/09/22 Katrin Orellana PA-C [address] [place] [address] [phone] Assigned Surgical Provider 08/15/22 02/10/24 Cristina Hsieh [facility] [address] [place] [address] Pharmacist Pharmacist 09/07/22 Alfreda Ray PA-C [address] [place] [address] Assigned Pain Medication Provider 09/05/22 09/10/23 Alfreda Ray PA-C [address] [place] [address] 27872 Assigned PCP 08/29/22 Cristina Hsieh, [facility] [address] [place] [address] Assigned MTM Pharmacist 09/26/22 Dakota Tatum MD [address] [place] [address] Cardiovascular Disease 03/25/23 Dakota Tatum MD [address] [place] [address] Assigned Heart and Vascular Provider 05/01/23 [place] [address] [place] , [address] [address] Assigned Musculoskeletal Provider 04/12/24 documented as of this encounter
--- OUTSIDE RECORDS SUMMARY | 2024-07-28 14:29 | XMS_ITS | Encounter Summary ---
Author Organization [place] Address [address] [place] [address] Care Team Providers Care Franchise Business Consultant Name Role Phone Esperanza Gatica MD Primary Care Provider + Esperanza Gatica MD Unavailable + Jesús Orourke MD Unavailable Alfreda Ray-C Primary Care Provider + Alfreda RayC Unavailable +[phone] Katrin Orellana PA-C Unavailable +[phone] Shanna Vang PA-C Unavailable +[phone] Fransisco Eddy MD Unavailable +[phone] Esperanza Gatica MD Unavailable + Esperanza Gatica MD Unavailable + Katrin OrellanaC Unavailable +[phone] Cristina Hsieh [facility] Unavailable +[phone] Alfreda Ray PA-C Unavailable +[phone] Alfreda Ray PA-C Unavailable +[phone] Cristina Hsieh [facility] Unavailable +[phone] Dakota Tatum MD Unavailable Dakota Tatum MD Unavailable +[phone] Srinivas Marie DO Unavailable [phone] Encounter Details Date Type Department Care Team (Late st Contact Info) Description 07/20/2021 MyC Medical Advice [facility] [address] [place] [phone] [place] [address] [place] [address] Social History Tobacco Use Types [...] Sex Assigned at Female 08/17/2018 7:56 AM STRIKE OUT MACHINE OPERATOR Legal Sex Female 4:24 AM STRIKE OUT MACHINE OPERATOR Gender Identity Female 08/17/2018 7:56 AM STRIKE OUT MACHINE OPERATOR Sexual Orientation Straight 08/17/2018 7: 56 AM STRIKE OUT MACHINE OPERATOR documented as of this encounter Miscellaneous Notes * Telephone Encounter - So Mathur RN - 07/21/2021 11:34 AM STRIKE OUT MACHINE OPERATOR Called the pt. She started with symptoms - July 05. Just yesterday she felt good. She took a home test and she was positive. [facility] Today and yesterday she felt better. No [...] for her granddaughters wedding in July to [place]. Advised she may want to do an e-visit if she would need a letter stating that she had covid and has recovered. She said she will try to do it the end of this week. KE OUT MACHINE OPERATOR documented in this encounter Plan of Treatment Upcoming Encounters Date Type Department Care Team (Late st Contact Info) Description 09/07/2024 10:00 AM CDT Office Visit [facility] [place] [address] [facility] 200 [place] [phone] Fransisco Eddy MD [address] [place] [address] 88 [place] [address] 09/18/2024 2:00 PM CDT Virtual Visit [facility]ot[facility] [address] [place] [phone] Shanna Vang PARobinson [address] [address] 03/29/2025 3:40 PM CDT Office Visit [address] [phone] Alfreda Ray PA-C [address] [place] [address] 723312 documented as of this encounter Visit Diagnoses Not on filedocumented in this encounter Additional Health Concerns Assessment Noted Time PHQ-9 Depression Total Score: 0 08/31/19 21 11:22 AM STRIKE OUT MACHINE OPERATOR documented as of this encounter Care Teams Franchise Business Consultant Relationship Specialty Start Date End Date Esperanza Gatica MD PCP - General Family Practice 10/13/11 12/29/21 Alfreda Ray PA-C [address] [place] [address] 229722 PCP - General Family Medicine 12/30/21 [place] [address] [address] [address] Assigned PCP 09/29/20 07/31/22 Jesú[place] [address] [address] Assigned Musculoskeletal Provider 10/20/20 04/17/22 Alfreda Ray PA-C [address] [place] [address] 441122 Referring Physician Family Medicine 12/31/21 Katrin Orellana PA-C [address] [place] [address] 98 [place], [place] [phone] Physician Consumer Recruiter Dermatology 12/31/21 Shanna Vang PA-C [address] [phone] Assigned Cancer Care Provider 01/10/22 Fransisco Eddy MD [address] [place] [address] 641715 Assigned Rheumatology Provider 05/09/22 [place] [address] [address]ARCIA [address] Assigned Pain Medication Provider 06/29/22 09/04/22 [place] [address] [address] [address] Assigned PCP 2/25/23 3/10/23 Katrin Orellana PA-C [address] [place] [address] 98 [place], [place] 002175 Assigned Surgical Provider 08/15/22 02/10/24 Cristina Hsieh [facility] [address] [facility] [address] [place] [phone] Pharmacist Pharmacist 09/07/22 Alfreda Ray PA-C [address] [place] [address] 916822 Assigned Pain Medication Provider 09/05/22 09/10/23 Alfreda Ray PA-C [address] [place] [address] 045612 Assigned PCP 08/29/22 Cristina Hsieh [facility] [address] [place] [address] Assigned MTM Pharmacist 09/26/22 Dakota Tatum MD [address] [place] [address] Cardiovascular Disease 03/25/23 Dakota Tatum MD [address] [place] [address] Assigned Heart and Vascular Provider 05/01/23 [place] [address] [facility], [facility] [address] [place] [address] Assigned Musculoskeletal Provider 04/12/24 documented as of this encounter
--- OUTSIDE RECORDS SUMMARY | 2024-07-28 14:29 | XMS_ITS | Encounter Summary ---
Author Organization [place] Address [address] [place] [address] Care Team Providers Care Property Maintenance Supervisor Name Role Phone Esperanza Gatica MD Primary Care Provider + Esperanza Gatica MD Unavailable +[phone] Esperanza Gatica MD Unavailable +[phone] Esperanza Gatica MD Unavailable +[phone] Esperanza Gatica MD Unavailable +342 Esperanza Gatica MD Unavailable +[phone] Esperanza Gatica MD Unavailable +[phone] Jesús Orourke MD Unavailable Alfreda RayC Primary Care Provider + Alfreda Ray PA-C Unavailable + [phone] Katrin Orellana PA-C Unavailable +[phone] Shanna VangC Unavailable +[phone] Fransisco Eddy MD Unavailable +[phone] Esperanza Gatica MD Unavailable +[phone] Esperanza Gatica MD Unavailable +[phone] Katrin Orellana PA-C Unavailable Cristina Hsieh [facility] Unavailable Cory Alfreda Liu PA-C Unavailable +[phone] Ho Raymustapha Liu PA-C Unavailable +[phone] Cristina Hsieh [facility] Unavailable +[phone] Dakota Tatum MD Unavailable +[phone] Dakota Tatum MD Unavailable +[phone] Srinivas Marie DO Unavailable [phone] Reason for Visit * Reason Onset Date Comments Refill Request 06/13/2015 Celebrex, Lisino pril Encounter Details Date Type Department Care Team (Late st Contact Info) Description 06/13/2015 MyC Refill [address], [address] [place] [address] [place] [address] [place] [address] Refill Request (Celebrex, Lisinopril) Social [...] Sex Assigned at Female 08/17/2018 7:56 AM WORKING SECOND HAND Legal Sex Female 4:24 AM WORKING SECOND HAND Gender Identity Female 08/17/2018 7:56 AM WORKING SECOND HAND Sexual Orientation Straight 08/17/2018 7: 56 AM WORKING SECOND HAND documented as of this encounter Miscellaneous Notes * Telephone Encounter - Leigha Rinaldi RN - 06/13/2015 9:16 AM CST Lisinopril, Celebrex Last Written Prescription Date: 03/17/2015 Last Fill Quantity: 90, # refills: 0 Last Office Visit with [facility] primary care provider: 04/08/2015 POTASSIUM Date Value Ref Range Status 07/10/2014 4.3 3.4 - 5.3 mmol/L Final CREATININE Date Value Ref Range Status 07/10/2014 0.89 0.52 - 1.04 mg/dL Final BP Readings from Last 3 Encounters: 04/08/15 112/60 12/06/14 126/64 08/07/14 130/88 Prescription approved per [facility] Refill Protocol. Leigha Rinaldi RN ING SECOND HAND * Telephone Encounter - Leigha Rinaldi RN - 06/13/2015 9:[facility] Original authorizing provider: MD Alexandria Brannon would like a refill of the following medications: celecoxib (CELEBREX) 200 MG capsule [Esperanza Gatica MD] lisinopril-hydrochlorothiazide (PRINZIDE,ZESTORETIC) 10-12.5 MG per tablet [Esperanza Gatica MD] Preferred pharmacy: [id number] Comment: ING SECOND HAND documented in this encounter Plan of Treatment Upcoming Encounters Date Type Department Care Team (Late st Contact Info) Description 09/07/2024 10:00 AM CDT Office Visit [facility] [address] [phone] Fransisco Eddy MD [address] [place] [address] 387615 09/18/2024 2:00 PM CDT Virtual Visit [facility] [address] [place] [address] 105 [place] [phone] Shanna Vang PA-C [address] [place] [address] 03/29/2025 3:40 PM CDT Office Visit [address] [phone] Alfreda Ray PA-C [address] [place] [address] 440392 documented as of this encounter Visit Diagnoses Diagnosis Osteoarthritis Osteoarthrosis, unspecified whether generalized or localized, unspecified site HTN (hypertension), benign Essential hypertension, benign documented in this encounter Additional Health Concerns Infection Onset Date Last Indicated Resolved Time Rule Out COVID-19 05/08/2021 05/08/2021 05/09/2021 9:08 PM WORKING SECOND HAND documented as of this encounter Care Teams Property Maintenance Supervisor Relationship Specialty Start Date End Date Esperanza Gatica MD PCP - General Family Practice 10/13/11 12/29/21 [place] [address] [address]ARCIA [address] PCP - Assigned PCP 12/05/17 08/23/18 Alfreda Ray PA-C [address] [place] [address] PCP - General Family Medicine 12/30/21 [place] [address] [address] [address] Assigned PCP 12/05/17 09/30/19 [place] [address] [address] [address] Assigned PCP 10/01/19 03/02/20 [place] [address] [address] [address] Assigned PCP 03/03/20 05/25/20 [place] [address] [address] [address] Assigned PCP 05/26/20 09/28/20 [place] [address] [address] GARCIA [address] Assigned PCP 09/29/20 07/31/22 [place] [address] [facility] [place] [address] Assigned Musculoskeletal Provider 10/20/20 04/17/22 Alfreda Ray PA-C [address] [place] [address] Referring Physician Family Medicine 12/31/21 Katrin Orellana PA-C [address] [place] [address] Physician Emt Driver Dermatology 12/31/21 Shanna Vang PA-C [facility] [address] [address] Assigned Cancer Care Provider 01/10/22 Fransisco Eddy MD [address] [place] [address] Assigned Rheumatology Provider 05/09/22 [place] [address] [address] [address] Assigned Pain Medication Provider 06/29/22 09/04/22 [place] [address] [place] [address] Assigned PCP 08/15/22 08/28/22 Katrin Orellana PA-C [address] [place] [address] Assigned Surgical Provider 08/15/22 02/10/24 Cristina Hsieh [facility] [address] [place] [address] [place] [address] Pharmacist Pharmacist 09/07/22 Alfreda Ray PA-C [address] [place] [address]49 Assigned Pain Medication Provider 09/05/22 09/10/23 Alfreda Ray PA-C [address] [place] [address] Assigned PCP 08/29/22 Cristina Hsieh [facility] [address] [place] [address] Assigned MTM Pharmacist 09/26/22 Dakota Tatum MD [address] [place] [address] 616905 Cardiovascular Disease 03/25/23 Dakota Tatum MD [address] [place] [address] 920685 Assigned Heart and Vascular Provider 05/01/23 [place] [address] CE[address] GASTELUM, [address] [place] [address] Assigned Musculoskeletal Provider 04/12/24 documented as of this encounter
--- OUTSIDE RECORDS SUMMARY | 2024-07-28 14:29 | XMS_ITS | Encounter Summary ---
Author Organization [place] Address [address] [place] [address] Care Team Providers Care Cloth Mender Name Role Phone Alfreda Ray PA-C Primary Care Provider + Alfreda Ray PA-C Unavailable [phone] Katrin Orellana PA-C Unavailable [phone] Shanna aVng PA-C Unavailable +[phone] Fransisco Eddy MD Unavailable +[phone] Katrin Orellana PA-C Unavailable +[phone] Cristina Hsieh [facility] Unavailable +[phone] Alfreda Ray PA-C Unavailable +[phone] Alfreda Ray PA-C Unavailable +[phone] Cristina Hsieh [facility] Unavailable +[phone] Dakota Tatum MD Unavailable + [phone] Dakota Tatum MD Unavailable + [phone] Srinivas Marie DO Unavailable [phone] Reason for Visit * Reason Onset Date Comments Refill Request 04/06/2023 predniSONE (DELT ASONE) 5 MG tablet Encounter Details Date Type Department Care Team (Late st Contact Info) Description 04/06/2023 [facility] Special[facility] [address] [address] Fransisco Eddy MD [address] [place] [address] [phone] Refill Request (predniSONE (DELTASONE) 5 MG tablet) [...] Sex Assigned at Female 08/17/2018 7:56 AM DEDICATED INTERMODAL TRUCK DRIVER Legal Sex Female 4:24 AM DEDICATED INTERMODAL TRUCK DRIVER Gender Identity Female 08/17/2018 7:56 AM DEDICATED INTERMODAL TRUCK DRIVER Sexual Orientation Straight 08/17/2018 7: 56 AM DEDICATED INTERMODAL TRUCK DRIVER COVID-19 Exposure Response Date Recorded In the [...] AM Pharmacist Visit with Cristina Hsieh RPH [facility] [place] ([facility] ) [address] [facility] [phone] Jun 17, 2023 1:30 PM (Arrive by 1:15 PM) Return Visit with Fransisco Eddy MD [facility] Specialty [facility] ([facility] ) [address] [place] [phone] Per YUSRA Evans's last note, pt is to be taking 5 mg daily until seen by her, Prescription not on Protocol, and routed to provider to review different dosing. SARA Tirado, RN [facility] Refill Team documented in this encounter Plan of Treatment Upcoming Encounters Date Type Department Care Team (Late st Contact Info) Description 09/07/2024 10:00 AM CDT Office Visit [facility] [address] [place] [phone] Fransisco Eddy MD [address] [place] [address] 690235 09/18/2024 2:00 PM CDT Virtual Visit [facility] [address] [place] [address] 105 [place] [phone] Shanna Vang, PAFilemonC 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) documented in this encounter Additional Health Concerns Assessment Noted Time PHQ-9 Depression Total Score: 5 03/09/20 23 10:57 AM CDT documented as of this encounter Care Teams Cloth Mender Relationship Specialty Start Date End Date Alfreda Ray PA-C [address] [place] [address] PCP - General Family Medicine 12/30/21 Alfreda Ray PA-C [address] [place] [address] Referring Physician Family Medicine 12/31/21 Katrin Orellana PA-C [address] [place] [address] 848175 Physician Making Machine Catcher Dermatology 12/31/21 Shanna Vang PA-C [address] [phone] Assigned Cancer Care Provider 01/10/22 Fransisco Eddy MD [address] [place] [address] [phone] Assigned Rheumatology Provider 05/09/22 Katrin Orellana PA-C [address] [place] [address] [phone] Assigned Surgical Provider 08/15/22 02/10/24 Cristina Hsieh [facility] [address] [facility] L[place]BETH HERNANDEZ [phone] Pharmacist Pharmacist 09/07/22 Alfreda Ray PA-C [address] [place] [address] Assigned Pain Medication Provider 09/05/22 09/10/23 Alfreda Ray PA-C [address] [place] [address] 28960 Assigned PCP 08/29/22 Cristina Hsieh, [facility] [address] [address] Assigned MTM Pharmacist 09/26/22 Dakota Tatum MD [address] [place] [address]38 Cardiovascular Disease 03/25/23 Dakota Tatum MD [address] [place] [address] Assigned Heart and Vascular Provider 05/01/23 [place] [address] [facility], [address] [address] Assigned Musculoskeletal Provider 04/12/24 documented as of this encounter
--- OUTSIDE RECORDS SUMMARY | 2024-07-28 14:30 | XMS_ITS | Encounter Summary ---
Author Organization [place] Address [address] [place] [address] Care Team Providers Care Contact Lens Manufacturer Name Role Phone Esperanza Gatica MD Primary Care Provider + Esperanza Gatica MD Unavailable +[phone] Esperanza Gatica MD Unavailable +[phone] Esperanza Gatica MD Unavailable +[phone] Esperanza Gatica MD Unavailable +[phone] Esperanza Gatica MD Unavailable +[phone] Esperanza Gatica MD Unavailable +[phone] Jesús Orourke MD Unavailable Alfreda RayC Primary Care Provider + Alfreda Ray PA-C Unavailable + [phone] Katrin Orellana PA-C Unavailable [phone] Shanna VangC Unavailable +[phone] Fransisco Eddy MD Unavailable [phone] Esperanza Gatica MD Unavailable +[phone] Esperanza Gatica MD Unavailable +[phone] Katrin Orellana PA-C Unavailable Cristina Hsieh [facility] Unavailable +[phone] Cory Alfreda Liu PA-C Unavailable Alfreda Ray Alexa KING Unavailable +[phone] Cristina Hsieh [facility] Unavailable Dakota Tatum MD Unavailable Dakota Tatum MD Unavailable Srinivas Marie DO Unavailable [phone] Reason for Visit * Reason Onset Date Comments Medication Refill 08/12/2017 traZODone and temazepam Encounter Details Date Type Department Care Team (Late st Contact Info) Description 08/12/[address], [address] [place] [address] [place] [address] [place] [address] Medication Refill (traZODone and temazepam [...] Sex Assigned at Female 08/17/2018 7:56 AM TRUCKLOAD CHECKER Legal Sex Female 4:24 AM TRUCKLOAD CHECKER Gender Identity Female 08/17/2018 7:56 AM TRUCKLOAD CHECKER Sexual Orientation Straight 08/17/2018 7: 56 AM TRUCKLOAD CHECKER documented as of this encounter Miscellaneous Notes * Telephone Encounter - Jacqui Whiteside CMA - 08/13/2017 4:22 PM TRUCKLOAD CHECKER Faxed temazepam to [facility] at [phone]. Jacqui Whiteside CMA KLOAD CHECKER * Telephone Encounter - Leigha Rinaldi RN - 08/13/2017 3:20 PM CST .Routing refill request to provider for review/approval because: Drug not on the [facility] refill protocol : TEMAZEPAM Leigha Rinaldi RN KLOAD CHECKER * Telephone Encounter - Diya Stone - 08/12/2017 2:22 PM CST traZODone (DESYREL) 50 MG tablet Sig: Take 1 capsule (7.5 mg) by mouth nightly as needed for sleep Last Written Prescription Date: 04/22/17 Last Fill Quantity: 30, # refills: 3 Last Office Visit with [facility] or [facility] prescribing provider: 07/02/2017 Routing refill request to provider for review/approval because: Drug not on the [facility] or [facility] refill protocol or controlled substance Requested Prescriptions [...] No positive test in past 12 months KLOAD CHECKER documented in this encounter Plan of Treatment Upcoming Encounters Date Type Department Care Team (Late st Contact Info) Description 09/07/2024 10:00 AM CDT Office Visit [facility] [place] [address] [facility] 200 [place] [phone] Fransisco Eddy MD [address] [facility] 88 [place] [address] 09/18/2024 2:00 PM CDT Virtual Visit [facility] [address] [facility] [address] [place] [phone] Shanna Vang PARobinson [address] [facility] [place] [address] 03/29/2025 3:40 PM CDT Office Visit [address] [place] [address] Alfreda Ray PA-C [address] [place] [address] [phone] documented as of this encounter Visit Diagnoses Diagnosis Insomnia, unspecified type documented in this encounter Additional Health Concerns Infection Onset Date Last Indicated Resolved Time Rule Out COVID-19 05/08/2021 05/08/2021 05/09/2021 9:08 PM TRUCKLOAD CHECKER Assessment Noted Time PHQ-9 Depression Total Score: 0 08/18/19 17 7:09 AM TRUCKLOAD CHECKER documented as of this encounter Care Teams Contact Lens Manufacturer Relationship Specialty Start Date End Date Esperanza Gatica MD PCP - General Family Practice 10/13/11 12/29/21 [place] [address] [place] [address] PCP - Assigned PCP 12/05/17 08/23/18 Alfreda Ray PA-C [address] [place] [address]691 PCP - General Family Medicine 12/30/21 [place] [address] [place] [address] Assigned PCP 12/05/17 09/30/19 [place] [address] [place] [address] Assigned PCP 10/01/19 03/02/20 [place] [address] [place] [address] Assigned PCP 03/03/20 05/25/20 [place] [address] [place] [address] Assigned PCP 05/26/20 09/28/20 [place] [address] [place] [address] Assigned PCP 09/29/20 07/31/22 [place] [address] [address] [place] [address] Assigned Musculoskeletal Provider 10/20/20 04/17/22 Alfreda Ray PA-C [address] [place] [address]17 Referring Physician Family Medicine 12/31/21 Katrin Orellana PA-C [address] [place] [address]883 Physician Gun Perforator Loader Dermatology 12/31/21 Shanna Vang PA-C [address] [place] [address] Assigned Cancer Care Provider 01/10/22 Fransisco Eddy MD [address] [place] [address] 606865 Assigned Rheumatology Provider 05/09/22 [place] [address] [place] [address] Assigned Pain Medication Provider 06/29/22 09/04/22 [place] [address] [place] [address] Assigned PCP 08/15/22 08/28/22 Katrin Orellana PA-C [address] [place] [address] 29698 Assigned Surgical Provider 08/15/22 02/10/24 Cristina Hsieh [facility] [address] [place] [address] [place] [address] Pharmacist Pharmacist 09/07/22 Alfreda Ray PA-C [address] [place] [address] 29933 Assigned Pain Medication Provider 09/05/22 09/10/23 Alfreda Ray PA-C [address] [place] [address] Assigned PCP 08/29/22 Cristina Hsieh, [facility] [address] [place] [address] Assigned MTM Pharmacist 09/26/22 Dakota Tatum MD [address] [place] [address] Cardiovascular Disease 03/25/23 Dakota Tatum MD [address] [place] [address] 23919 Assigned Heart and Vascular Provider 05/01/23 [place] [address] [address] Assigned Musculoskeletal Provider 04/12/24 documented as of this encounter
--- OUTSIDE RECORDS SUMMARY | 2024-07-28 14:30 | XMS_ITS | Encounter Summary ---
Author Organization [place] Address [address] [place] [address] Care Team Providers Care Circuit Court Magistrate Name Role Phone Esperanza Gatica MD Primary Care Provider + Esperanza Gatica MD Unavailable +[phone] Esperanza Gatica MD Unavailable +[phone] Esperanza Gatica MD Unavailable +[phone] Esperanza Gatica MD Unavailable +[phone] Esperanza Gatica MD Unavailable +[phone] Esperanza Gatica MD Unavailable +[phone] Jesús Orourke MD Unavailable Alfreda RayC Primary Care Provider + Alfreda Ray PA-C Unavailable + [phone] Katrin Orellana PA-C Unavailable [phone] Shanna VangC Unavailable +[phone] Fransisco Eddy MD Unavailable [phone] Esperanza Gatica MD Unavailable +[phone] Esperanza Gatica MD Unavailable +[phone] Katrin Orellana PA-C Unavailable Cristina Hsieh [facility] Unavailable Alfreda Ray PA-C Unavailable Cory Alfreda Liu PA-C Unavailable [phone] Cristina Hsieh [facility] Unavailable Dakota Tatum MD Unavailable Dakota Tatum MD Unavailable rSinivas Marie Unavailable [phone] Encounter Details Date Type Department Care Team (Late Contact Info) Description 08/17/2017 MyC Medical Advice [address], [address] [place] [address] Cata Olivo MA Social History [...] Sex Assigned at Female 08/17/2018 7:56 AM C PROGRAMMER Legal Sex Female 4:24 AM C PROGRAMMER Gender Identity Female 08/17/2018 7:56 AM C PROGRAMMER Sexual Orientation Straight 08/17/2018 7: 56 AM C PROGRAMMER documented as of this encounter Plan of Treatment Upcoming Encounters Date Type Department Care Team (Late Contact Info) Description 09/07/2024 10:00 AM CDT Office Visit [facility] [address] [place] [phone] Fransisco Eddy MD [address] [place] [address] 88 [place] [address] 09/18/2024 2:00 PM CDT Virtual Visit [facility] [place] [address] 105 [place] [phone] Shanna Vang PA-C [address] [place] [address] 03/29/2025 3:40 PM CDT Office Visit [address] [address] Alfreda Ray PA-C [address] [place] [address] 974752 documented as of this encounter Visit Diagnoses Not on filedocumented in this encounter Additional Health Concerns Infection Onset Date Last Indicated Resolved Time Rule Out COVID-19 05/08/2021 05/08/2021 05/09/2021 9:08 PM C PROGRAMMER Assessment Noted Time PHQ-9 Depression Total Score: 0 08/18/19 17 7:09 AM C PROGRAMMER documented as of this encounter Care Teams Circuit Court Magistrate Relationship Specialty Start Date End Date Esperanza Gatica MD PCP - General Family Practice 10/13/11 12/29/21 [place] [address] [place]ARCIA [address] PCP - Assigned PCP 12/05/17 08/23/18 Alfreda Ray PA-C [address] [place] [address] PCP - General Family Medicine 12/30/21 [place] [address] [place] [address] Assigned PCP 12/05/17 09/30/19 [place] [address] [place] [address] Assigned PCP 10/01/19 03/02/20 [place] [address] [place] [address] Assigned PCP 03/03/20 05/25/20 [place] [address] [place] [address] Assigned PCP 05/26/20 09/28/20 [place] [address] [place] [address] Assigned PCP 09/29/20 07/31/22 [place] [address] [address] [address] Assigned Musculoskeletal Provider 10/20/20 04/17/22 Alfreda Ray PA-C [address] [place] [address] Referring Physician Family Medicine 12/31/21 Katrin Orellana PA-C [address] [place] [address] Physician Independent Freight Agent Dermatology 12/31/21 Shanna Vang PA-C [address] [place] [address] Assigned Cancer Care Provider 01/10/22 Fransisco Eddy MD [address] [place] [address] [place] [address] Assigned Rheumatology Provider 05/09/22 [place] [address] [place] [address] Assigned Pain Medication Provider 06/29/22 09/04/22 [place] [address] [place] [address] Assigned PCP 08/15/22 08/28/22 Katrin Orellana PA-C [address] [place] [address] Assigned Surgical Provider 08/15/22 02/10/24 Cristina Hsieh [facility] [address] [place] [address] Pharmacist Pharmacist 09/07/22 Alfreda Ray PA-C [address] [place] [address] [phone] Assigned Pain Medication Provider 09/05/22 09/10/23 Alfreda Ray PA-C [address] [place] [address] Assigned PCP 08/29/22 Cristina Hsieh [facility] [address] [address] Assigned MTM Pharmacist 09/26/22 Dakota Tatum MD [address] [place] [address] Cardiovascular Disease 03/25/23 Dakota Tatum MD [address] [place] [address] Assigned Heart and Vascular Provider 05/01/23 [place] [address] [address], [address] [address] Assigned Musculoskeletal Provider 04/12/24 documented as of this encounter
--- OUTSIDE RECORDS SUMMARY | 2024-07-28 14:30 | XMS_ITS | Encounter Summary ---
Author Organization [place] Address [address] [place] [address]57 Care Team Providers Care Surveyor Hydrographic Name Role Phone Alfa Marcelo MD Primary Care Provider Ajay Dailey MD Primary Care Provider [phone] Esperanza Gatica MD Primary Care Provider Esperanza Gatica MD Unavailable +[phone] Esperanza Gatica MD Unavailable +[phone] Esperanza Gatica MD Unavailable +[phone] Esperanza Gatcia MD Unavailable +[phone] Esperanza Gatica MD Unavailable +[phone] Esperanza Gatica MD Unavailable +[phone] Jesús Orourke MD Unavailable Alfreda RayC Primary Care Provider + Alfreda RayC Unavailable +[phone] Katrin OrelalnaC Unavailable Shanna Vang-C Unavailable +[phone] Fransisco Eddy MD Unavailable +[phone] Esperanza Gatica MD Unavailable +[phone] Esperanza Gatica MD Unavailable +[phone] Katrin Orellana PA-C Unavailable Cristina Hsieh [facility] Unavailable [phone] Cory Alfreda Liu PA-C Unavailable +[phone] Cory Alfreda Liu PA-C Unavailable +[phone] Cristina Hsieh [facility] Unavailable [phone] Dakota Tatum MD Unavailable +[phone] Dakota Tatum MD Unavailable [phone] Srinivas Marie DO Unavailable [phone] Reason for Visit * Reason Onset Date Comments MyChart Communication 10/02/2009 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 Social History Tobacco Use Types Packs/Day Years Used Date Smoking Tobacco: Former Cigarettes Q uit: 06/21/1973 Alcohol Use Standard Drinks/Week Comments Yes 0 (1 standard drink = 0.6 oz pur e alcohol) rarely Comments No Sex and Gender Information Value Date Recorded Sex Assigned at Female 08/17/2018 7:56 AM MAIL HANDLER Legal Sex Female 4:24 AM MAIL HANDLER Gender Identity Female 08/17/2018 7:56 AM MAIL HANDLER Sexual Orientation Straight 08/17/2018 7: 56 AM MAIL HANDLER documented as of this encounter Plan of Treatment Upcoming Encounters Date Type Department Care Team (Late st Contact Info) Description 09/07/2024 10:00 AM CDT Office Visit [facility] [address] [address] Fransisco Eddy MD [address] [facility] 88 [place], [place] [address] 09/18/2024 2:00 PM CDT Virtual Visit [facility] [address] [place] [phone] Shanna aVng, PAFilemonC [address] [place] [address] 03/29/2025 3:40 PM CDT Office Visit [address] [place] [phone] Alfreda Ray PA-C [address] [place] [address] [phone] documented as of this encounter Visit Diagnoses Not on filedocumented in this encounter Additional Health Concerns Infection Onset Date Last Indicated Resolved Time Rule Out COVID-19 05/08/2021 05/08/2021 05/09/2021 9:08 PM MAIL HANDLER documented as of this encounter Care Teams Surveyor Hydrographic Relationship Specialty Start Date End Date Alfa Marcelo MD [facility] [address] [place] [address] [place] [address] PCP - General 01/22/04 01/28/11 Ajay Dailey MD [facility] [address] [place] [address] [place], [place] [phone] PCP - General Family Practice 01/29/11 10/12/11 Esperanza Gatica MD [facility] [address] [place] [address] [place], [place] [phone] PCP - General Family Practice 10/13/11 12/29/21 [place] [address] [address] [place], [place] [address] PCP - Assigned PCP 12/05/17 08/23/18 Alfreda Ray PA-C [address] [place] [address] PCP - General Family Medicine 12/30/21 [place] [address] [place] [address] Assigned PCP 12/05/17 09/30/19 [place] [address] [address] [place], [place] [address] Assigned PCP 10/01/19 03/02/20 [place] [address] [place] [place] [address] Assigned PCP 03/03/20 05/25/20 [place] [address] [place] [place] [address] Assigned PCP 05/26/20 09/28/20 [place] [address] [place] [address] Assigned PCP 09/29/20 07/31/22 [place] [address] [place] [address] Assigned Musculoskeletal Provider 10/20/20 04/17/22 Alfreda Ray PA-C [address] [place] [address] Referring Physician Family Medicine 12/31/21 Katrin Orellana PA-C [address] [place] [address] Physician Fast Food Delivery Driver Dermatology 12/31/21 Shanna Vang PA-C [address] [place] [address] Assigned Cancer Care Provider 01/10/22 Fransisco Eddy MD [address] [place] [address] Assigned Rheumatology Provider 05/09/22 [place] [address] [place] [address] Assigned Pain Medication Provider 06/29/22 09/04/22 [place] [address] [address] [facility] [place] [address] Assigned PCP 08/15/22 08/28/22 Katrin Orellana PA-C [address] [place] [address] Assigned Surgical Provider 08/15/22 02/10/24 Cristina Hsieh [facility] [address] [place] [address] [place]NA[place]DE[place] [address] Pharmacist Pharmacist 09/07/22 Alfreda Ray PA-C [address] [place] [address] Assigned Pain Medication Provider 09/05/22 09/10/23 Alfreda Ray PA-C [address] [place] [address] Assigned PCP 08/29/22 Cristina Hsieh, [facility] [address] [place] [address] Assigned MTM Pharmacist 09/26/22 Dakota Tatum MD [address] [place] [address] Cardiovascular Disease 03/25/23 Dakota Tatum MD [address] [place] [address] Assigned Heart and Vascular Provider 05/01/23 [place] [address] [address], [address] [address] Assigned Musculoskeletal Provider 04/12/24 documented as of this encounter
--- OUTSIDE RECORDS SUMMARY | 2024-07-28 14:30 | XMS_ITS | Encounter Summary ---
Author Organization [place] Address [address] [place] [address]21 Care Team Providers Care Shirt Presser Name Role Phone Esperanza Gatica MD Primary Care Provider + Esperanza Gatica MD Unavailable +[phone] Esperanza Gatica MD Unavailable +[phone] Esperanza Gatica MD Unavailable +[phone] Esperanza Gatica MD Unavailable +[phone] Esperanza Gatica MD Unavailable +[phone] Esperanza Gatica MD Unavailable +[phone] Jesús Orourke MD Unavailable Alfreda RayC Primary Care Provider + Alfreda Ray PA-C Unavailable + [phone] Katrin Orellana PA-C Unavailable +[phone] Shanna VangC Unavailable +[phone] Fransisco Eddy MD Unavailable +[phone] Esperanza Gatica MD Unavailable +[phone] Esperanza Gatica MD Unavailable +[phone] Katrin Orellana PA-C Unavailable Cristina Hsieh [facility] Unavailable Cory Alfreda Liu PA-C Unavailable +[phone] Ho Raymustapha Liu PA-C Unavailable +[phone] Cristina Hsieh [facility] Unavailable +[phone] Dakota Tatum MD Unavailable Dakota Tatum MD Unavailable Srinivas Marie DO Unavailable +[phone] Reason for Visit * Reason Onset Date Comments Prior Auth - Medication 10/14/2017 Temazepa m Encounter Details Date Type Department Care Team (Late st Contact Info) Description 10/14/2017 MyC Medical Advice M [address], [facility] [address] [place] [address] [place] [address] [place] [address] Prior Auth - Medication (Temazepam) [...] Sex Assigned at Female 08/17/2018 7:56 AM GRADES 6 THROUGH 8 TEACHER Legal Sex Female 4:24 AM GRADES 6 THROUGH 8 TEACHER Gender Identity Female 08/17/2018 7:56 AM GRADES 6 THROUGH 8 TEACHER Sexual Orientation Straight 08/17/2018 7: 56 AM GRADES 6 THROUGH 8 TEACHER documented as of this encounter Miscellaneous Notes * Telephone Encounter - Leigha Rinadli RN - 10/15/2017 10:14 AM CDT Received [...] 7:30 AM CDT Prior auth submitted via [employer]. Can call to check the status. Was advised it can take up to 1-3 days. Leigha Rinaldi RN documented in this encounter Plan of Treatment Upcoming Encounters Date Type Department Care Team (Late st Contact Info) Description 09/07/2024 10:00 AM CDT Office Visit [facility] [address] [address] Fransisco Eddy MD [address] [place] [address] 88 [place], [place] [address] 09/18/2024 2:00 PM CDT Virtual Visit [facility] [place] [place] [address] 105 [place] [address] Shanna Vang PA-C [address] [place] [address] 03/29/2025 3:40 PM CDT Office Visit [address] [place] [address] Alfreda Ray PA-C [address] [place] [address] 496862 documented as of this encounter Visit Diagnoses Not on filedocumented in this encounter Additional Health Concerns Infection Onset Date Last Indicated Resolved Time Rule Out COVID-19 05/08/2021 05/08/2021 05/09/2021 9:08 PM GRADES 6 THROUGH 8 TEACHER Assessment Noted Time PHQ-9 Depression Total Score: 0 08/18/19 7:09 AM GRADES 6 THROUGH 8 TEACHER documented as of this encounter Care Teams Shirt Presser Relationship Specialty Start Date End Date Esperanza Gatica MD PCP - General Family Practice 10/13/11 12/29/21 [place] [address] LISBETH GARCIA [address] PCP - Assigned PCP 12/05/17 08/23/18 Alfreda Ray PA-C [address] [place] [address]17 PCP - General Family Medicine 12/30/21 [place] [address] LISBETH GARCIA [address]16 Assigned PCP 12/05/17 09/30/19 [place] [address] LISBETH GARCIA [address]282 Assigned PCP 10/01/19 03/02/20 [place] [address] LISBETH GARCIA 58081 Assigned PCP 03/03/20 05/25/20 [place] [address] LISBETH GARCIA 98086 Assigned PCP 05/26/20 09/28/20 [place] [address] [place] [address] Assigned PCP 09/29/20 07/31/22 Jesú[place] [address] [place] [address] [address] Assigned Musculoskeletal Provider 10/20/20 04/17/22 Alfreda Ray PA-C [address] [place] [address] Referring Physician Family Medicine 12/31/21 Katrin Orellana PA-C [address] [place] [address] Physician Oracle Programmer Analyst Dermatology 12/31/21 Shanna Vang PA-C [address] [address] Assigned Cancer Care Provider 01/10/22 Fransisco Eddy MD [address] [place] [address]40 Assigned Rheumatology Provider 05/09/22 [place] [address] [place] [address] Assigned Pain Medication Provider 06/29/22 09/04/22 [place] [address] [place] [address] Assigned PCP 08/15/22 08/28/22 Katrin Orellana PA-C [address] [place] [address] 26843 Assigned Surgical Provider 08/15/22 02/10/24 Cristina Hsieh [facility] [address] [facility] LISBETH HERNANDEZ [address] Pharmacist Pharmacist 09/07/22 Alfreda Ray PA-C [address] [place] [address] 438052 Assigned Pain Medication Provider 09/05/22 09/10/23 Alfreda Ray PA-C [address] [place] [address] 349612 Assigned PCP 08/29/22 Cristina Hsieh [facility] [address] [place] [address]907 Assigned MTM Pharmacist 09/26/22 Dakota Tatum MD [address] [place] [address] 10117 Cardiovascular Disease 03/25/23 Dakota Tatum MD [address] [place] [address] 35890 Assigned Heart and Vascular Provider 05/01/23 [place] [address] [place] [address] [address] Assigned Musculoskeletal Provider 04/12/24 documented as of this encounter
--- OUTSIDE RECORDS SUMMARY | 2024-07-28 14:30 | XMS_ITS | Encounter Summary ---
Author Organization [facility] Address [address] [place] [address] Care Team Providers Care Golf Club Maker Name Role Phone Alfreda Ray PA-C Primary Care Provider + Alfreda Ray PA-C Unavailable +- [phone] Katrin Orellana PA-C Unavailable [phone] Shanna Vang PA-C Unavailable +[phone] Fransisco Eddy MD Unavailable +[phone] Katrin Orellana PA-C Unavailable +[phone] Cristina Hsieh [facility] Unavailable +[phone] Alfreda Ray PA-C Unavailable + [phone] Alfreda Ray PA-C Unavailable + [phone] Cristina Hsieh [facility] Unavailable +[phone] Dakota Tatum MD Unavailable + [phone] Dakota Tatum MD Unavailable + [phone] Srinivas Marie DO Unavailable [phone] Encounter Details Date Type Department Care Team (Late st Contact Info) Description 02/12/2023 Migdalia Marin [facility] [address] [address] Cristina Hsieh, [facility] [address] [place] [address] Social History Tobacco Use Types Packs/Day Years [...] Sex Assigned at Female 08/17/2018 7:56 AM WASH HOUSE WORKER Legal Sex Female 4:24 AM WASH HOUSE WORKER Gender Identity Female 08/17/2018 7:56 AM WASH HOUSE WORKER Sexual Orientation Straight 08/17/2018 7: 56 AM WASH HOUSE WORKER documented as of this encounter Plan of Treatment Upcoming Encounters Date Type Department Care Team (Late st Contact Info) Description 09/07/2024 10:00 AM CDT Office Visit [facility] [address] [phone] Fransisco Eddy MD [address] [place] [address] 88 [place], [place] [address]255 09/18/2024 2:00 PM CDT Virtual Visit [facility] [place] [address] 105 [place] [phone] Shanna Vang PAFilemonC [address] [place] [address] 03/29/2025 3:40 PM CDT Office Visit [address] [place] [address] Alfreda Ray PA-C [address] [place] [address] 857022 documented as of this encounter Visit Diagnoses Not on filedocumented in this encounter Additional Health Concerns Assessment Noted Time PHQ-9 Depression Total Score: 4 09/05/19 22 10:39 AM CDT documented as of this encounter Care Teams Golf Club Maker Relationship Specialty Start Date End Date Alfreda Ray PA-C [address] [place] [address] PCP - General Family Medicine 12/30/21 Alfreda Ray PA-C [address] [place] [address] 11653 Referring Physician Family Medicine 12/31/21 Katrin Orellana PA-C [address] [place] [address] 679265 Physician Campus Security Officer Dermatology 12/31/21 Shanna Vang PA-C [address] [place] [address] 209164 Assigned Cancer Care Provider 01/10/22 Fransisco Eddy MD [address] [place] [address] 315525 Assigned Rheumatology Provider 05/09/22 Katrin Orellana PA-C [address] [place] [address] 011095 Assigned Surgical Provider 08/15/22 02/10/24 Cristina Hsieh [facility] [address] [place] [address] [place] [address] Pharmacist Pharmacist 09/07/22 Alfreda Ray PA-C [address] [place] [address], [place] [address] Assigned Pain Medication Provider 09/05/22 09/10/23 Alfreda Ray PA-C [address] [place] [address] 45557 Assigned PCP 08/29/22 Cristina Hsieh, [facility] [address] [place] [address] 11577 Assigned MTM Pharmacist 09/26/22 aDkota Tatum MD [address] [place] [address] Cardiovascular Disease 03/25/23 Dakota Tatum MD [address] [place] [address] 61507 Assigned Heart and Vascular Provider 05/01/23 [place] [address] CELE GASTELUM, [address] [address] Assigned Musculoskeletal Provider 04/12/24 documented as of this encounter
--- OUTSIDE RECORDS SUMMARY | 2024-07-28 14:30 | XMS_ITS | Encounter Summary ---
Author Organization [facility] Address [address] [place] [address] Care Team Providers Care Hog Pusher Name Role Phone Esperanza Gatica MD Primary Care Provider + Esperanza Gatica MD Unavailable +[phone] Esperanza Gatica MD Unavailable +[phone] Esperanza Gatica MD Unavailable +[phone] Esperanza Gatica MD Unavailable +[phone] Esperanza Gatica MD Unavailable +[phone] Esperanza Gatica MD Unavailable +[phone] Jesús Orourke MD Unavailable Alfreda RayC Primary Care Provider + Alfreda Ray PA-C Unavailable + [phone] Katrin Orellana PA-C Unavailable +[phone] Shanna VangC Unavailable +[phone] Fransisco Eddy MD Unavailable [phone] Esperanza Gatica MD Unavailable +[phone] Esperanza Gatica MD Unavailable +[phone] Katrin Orellana PA-C Unavailable Cristina Hsieh [facility] Unavailable RayAlfreda PA-C Unavailable [phone] Cory Alfreda Liu PA-C Unavailable [phone] Cristina Hsieh [facility] Unavailable Dakota Tatum MD Unavailable Dakota Tatum MD Unavailable Srinivas Marie DO Unavailable [phone] Encounter Details Date Type Department Care Team (Late st Contact Info) Description 08/17/2017 MyC Medical Advice [address], [address] [place] [address] [place] [address] [place] [address] Social History Tobacco Use Types [...] Sex Assigned at Female 08/17/2018 7:56 AM CRAB STEAMER Legal Sex Female 4:24 AM CRAB STEAMER Gender Identity Female 08/17/2018 7:56 AM CRAB STEAMER Sexual Orientation Straight 08/17/2018 7: 56 AM CRAB STEAMER documented as of this encounter Plan of Treatment Upcoming Encounters Date Type Department Care Team (Late st Contact Info) Description 09/07/2024 10:00 AM CDT Office Visit [facility] [address] [address] Fransisco Eddy MD [address] [place] [address] 09/18/2024 2:00 PM CDT Virtual Visit [facility] [address] [place] [address] Shanna Vang PA-C [address] [place] [address] 03/29/2025 3:40 PM CDT Office Visit [address] [place] [address] Alfread Ray PA-C [address] [place] [address] 173092 documented as of this encounter Visit Diagnoses Not on filedocumented in this encounter Additional Health Concerns Infection Onset Date Last Indicated Resolved Time Rule Out COVID-19 05/08/2021 05/08/2021 05/09/2021 9:08 PM CRAB STEAMER Assessment Noted Time PHQ-9 Depression Total Score: 0 08/18/19 17 7:09 AM CRAB STEAMER documented as of this encounter Care Teams Hog Pusher Relationship Specialty Start Date End Date Esperanza Gatica MD PCP - General Family Practice 10/13/11 12/29/21 [place] [address] LISBETH GARCIA [address] PCP - Assigned PCP 12/05/17 08/23/18 Alfreda Ray PA-C [address] [place] [address]32 PCP - General Family Medicine 12/30/21 [place] [address] LISBETH GARCIA [address]96[address] Assigned PCP 12/05/17 09/30/19 [place] [address] [address] LISBETH GAFFNEY [address] Assigned PCP 10/01/19 03/02/20 [place] [address] [place] [address] Assigned PCP 03/03/20 05/25/20 [place] [address] LISBETH GARCIA 29365 Assigned PCP 05/26/20 09/28/20 [place] [address] [place] [address] Assigned PCP 09/29/20 07/31/22 Jesú[place] [address] [place], [place] 633537 Assigned Musculoskeletal Provider 10/20/20 04/17/22 Alfreda Ray PA-C [address] [place] [address] 599042 Referring Physician Family Medicine 12/31/21 Katrin Orellana PA-C [address] [place] [address] 997535 Physician Center Punch Operator Dermatology 12/31/21 Shanna Vang PA-C [facility] 816424 Assigned Cancer Care Provider 01/10/22 Fransisco Eddy MD [address] [place] [address] Assigned Rheumatology Provider 05/09/22 [place] [address] [place] [address] Assigned Pain Medication Provider 06/29/22 09/04/22 [place] [address] [place] [address] Assigned PCP 08/15/22 08/28/22 Katrin Orellana PA-C [address] [place] [address]393 Assigned Surgical Provider 08/15/22 02/10/24 Cristina Hsieh [facility] [address] [place] [address] [place] [address] Pharmacist Pharmacist 09/07/22 Alfreda Ray PA-C [address] [place] [address]87 Assigned Pain Medication Provider 09/05/22 09/10/23 Alfreda Ray PA-C [address] [place] [address]51 Assigned PCP 08/29/22 Cristina Hsieh [facility] [address] [phone] Assigned MTM Pharmacist 09/26/22 Dakota Tatum MD [address] [place] [address] 477965 Cardiovascular Disease 03/25/23 Dakota Tatum MD [address] [place] [address] 541455 Assigned Heart and Vascular Provider 05/01/23 [place] [address] CE[address] GASTELUM, [address] [address] Assigned Musculoskeletal Provider 04/12/24 documented as of this encounter
--- OUTSIDE RECORDS SUMMARY | 2024-07-28 14:30 | XMS_ITS | Encounter Summary ---
Author Organization [place] Address [address] [place] [address] Care Team Providers Care Patternmaker Plastics Name Role Phone Esperanza Gatica MD Primary Care Provider + Esperanza Gatica MD Unavailable +[phone] Esperanza Gatica MD Unavailable +[phone] Esperanza Gatica MD Unavailable +[phone] Esperanza Gatica MD Unavailable +[phone] Esperanza Gatica MD Unavailable +[phone] Esperanza Gatica MD Unavailable +[phone] Jesús Orourke MD Unavailable Alfreda RayC Primary Care Provider + Alfreda Ray PA-C Unavailable + [phone] Katrin Orellana PA-C Unavailable +[phone] Shanna VangC Unavailable +[phone] Fransisco Eddy MD Unavailable [phone] Esperanza Gatica MD Unavailable +[phone] Esperanza Gatica MD Unavailable +[phone] Katrin Orellana PA-C Unavailable Cristina Hsieh [facility] Unavailable RayAlfreda PA-C Unavailable [phone] Cory Alfreda Liu PA-C Unavailable [phone] Cristina Hsieh [facility] Unavailable Dakota Tatum MD Unavailable Dakota Tatum MD Unavailable Sriinvas Marie DO Unavailable [phone] Encounter Details Date Type Department Care Team (Late st Contact Info) Description 12/16/2017 MyC Medical Advice [address], [address] [place] [address] [place] [address] [place] [address] Social History Tobacco Use Types [...] Assigned at Female 08/17/2018 7:56 AM CHIEF MECHANICAL ENGINEER Legal Sex Female 4:24 AM CHIEF MECHANICAL ENGINEER Gender Identity Female 08/17/2018 7:56 AM CHIEF MECHANICAL ENGINEER Sexual Orientation Straight 08/17/2018 7: 56 AM CHIEF MECHANICAL ENGINEER documented as of this encounter Plan of Treatment Upcoming Encounters Date Type Department Care Team (Late st Contact Info) Description 09/07/2024 10:00 AM CDT Office Visit [facility] [address] [address] Fransisco Eddy MD [address] [place] [address] 09/18/2024 2:00 PM CDT Virtual Visit [facility] [address] [place] [address] Shanna Vang PA-C [address] [place] [address] 03/29/2025 3:40 PM CDT Office Visit [address] [place] [address] Alfreda Ray PA-C [address] [place] [address] 778142 documented as of this encounter Visit Diagnoses Not on filedocumented in this encounter Additional Health Concerns Infection Onset Date Last Indicated Resolved Time Rule Out COVID-19 05/08/2021 05/08/2021 05/09/2021 9:08 PM CHIEF MECHANICAL ENGINEER Assessment Noted Time PHQ-9 Depression Total Score: 1 12/01/19 18 7:11 AM CDT documented as of this encounter Care Teams Patternmaker Plastics Relationship Specialty Start Date End Date Esperanza Gatica MD PCP - General Family Practice 10/13/11 12/29/21 [place] [address] LISBETH GARCIA [address] PCP - Assigned PCP 12/05/17 08/23/18 Alfreda Ray PA-C [address] [place] [address]45 PCP - General Family Medicine 12/30/21 [place] [address] LISBETH GARCIA [address]122 Assigned PCP 12/05/17 09/30/19 [place] [address] [place] [address] Assigned PCP 10/01/19 03/02/20 [place] [address] [place] [address] Assigned PCP 03/03/20 05/25/20 [place] [address] LISBETH GARCIA [address]843 Assigned PCP 05/26/20 09/28/20 [place] [address] [place] [address] Assigned PCP 09/29/20 07/31/22 [place] [address] [place] 664977 Assigned Musculoskeletal Provider 10/20/20 04/17/22 Alfreda Ray PA-C [address] [place] [address] 935312 Referring Physician Family Medicine 12/31/21 Katrin Orellana PA-C [address] [place] [address] [phone] Physician Manager Sterile Dermatology 12/31/21 Shanna Vang PA-C [facility] [address] [phone] Assigned Cancer Care Provider 01/10/22 Fransisco Eddy MD [address] [place] [address] Assigned Rheumatology Provider 05/09/22 [place] [address] [place] [id number] Assigned Pain Medication Provider 06/29/22 09/04/22 [place] [address] [place] [address] Assigned PCP 08/15/22 08/28/22 Katrin Orellana PA-C [address] [place] [address] 61899 Assigned Surgical Provider 08/15/22 02/10/24 Cristina Hsieh [facility] [address] [facility] [place] [id number] Pharmacist Pharmacist 09/07/22 Alfreda Ray PA-C [address] [place] [address]13 Assigned Pain Medication Provider 09/05/22 09/10/23 Alfreda Ray PA-C [address] [place] [address] 24294 Assigned PCP 08/29/22 Cristina Hsieh [facility] [address] [phone] Assigned MTM Pharmacist 09/26/22 Dakota Tatum MD [address] [place] [address] 290605 Cardiovascular Disease 03/25/23 Dakota Tatum MD [address] [place] [address] 463215 Assigned Heart and Vascular Provider 05/01/23 [place] [address] CELE GASTELUM, [address] [address] Assigned Musculoskeletal Provider 04/12/24 documented as of this encounter
--- OUTSIDE RECORDS SUMMARY | 2024-07-28 14:30 | XMS_ITS | Encounter Summary ---
Author Organization [place] Address [address] [place] [address] Care Team Providers Care Health Science Instructor Name Role Phone Alfreda Ray PA-C Primary Care Provider + Alfreda Ray PA-C Unavailable +[phone] Katrin Orellana PA-C Unavailable [phone] Shanna Vang PA-C Unavailable +[phone] Fransisco Eddy MD Unavailable +[phone] Katrin Orellana PA-C Unavailable [phone] Cristina Hsieh [facility] Unavailable +[phone] Alfreda Ray PA-C Unavailable + [phone] Alfreda Ray PA-C Unavailable + [phone] Cristina Hsieh [facility] Unavailable +[phone] Dakota Tatum MD Unavailable + [phone] Dakota Tatum MD Unavailable + [phone] Srinivas Marie DO Unavailable [phone] Encounter Details Date Type Department Care Team (Late st Contact Info) Description 11/23/2022 [facility] [address] [address] Faduom Arboleda, RN Social History Tobacco Use Types [...] Sex Assigned at Female 08/17/2018 7:56 AM VOLUNTEER RECRUITMENT COORDINATOR Legal Sex Female 4:24 AM VOLUNTEER RECRUITMENT COORDINATOR Gender Identity Female 08/17/2018 7:56 AM VOLUNTEER RECRUITMENT COORDINATOR Sexual Orientation Straight 08/17/2018 7: 56 AM VOLUNTEER RECRUITMENT COORDINATOR COVID-19 Exposure Response Date Recorded In [...] [facility] [address] [place] [address] Fransisco Eddy MD [address] [place] [address] 88 [place], [place] 830815 09/18/2024 2:00 PM CDT Virtual Visit [facility] [place] [address] 105 [place] [address] Shanna Vang PARobinson [address] [place] [address] 03/29/2025 3:40 PM CDT Office Visit [address] [place] [address] Alfreda Ray PA-C [address] [place] [address] 321472 documented as of this encounter Visit Diagnoses Not on filedocumented in this encounter Additional Health Concerns Assessment Noted Time PHQ-9 Depression Total Score: 4 09/05/19 22 10:39 AM CDT documented as of this encounter Care Teams Health Science Instructor Relationship Specialty Start Date End Date Alfreda Ray PA-C [address] [place] [address] 12670 PCP - General Family Medicine 12/30/21 Alfreda Ray PA-C [address] [place] [address] 364892 Referring Physician Family Medicine 12/31/21 Katrin Orellana PA-C [address] [place] [address] 022755 Physician Construction Ironworker Helper Dermatology 12/31/21 Shanna Vang PA-C [address] [place] [address] 763304 Assigned Cancer Care Provider 01/10/22 Fransisco Eddy MD [address] [place] [address] 434215 Assigned Rheumatology Provider 05/09/22 Katrin Orellana PA-C [address] [place] [address] 534285 Assigned Surgical Provider 08/15/22 02/10/24 Cristina Hsieh [facility] [address] [place] [address] Pharmacist Pharmacist 09/07/22 Alfreda Ray PA-C [address] [place] [address]216 Assigned Pain Medication Provider 09/05/22 09/10/23 Alfreda Ray PA-C [address] [place] [address] 12039 Assigned PCP 08/29/22 Cristina Hsieh, [facility] [address] [address] Assigned MTM Pharmacist 09/26/22 Dakota Tatum MD [address] [place] [address] 42699 Cardiovascular Disease 03/25/23 Dakota Tatum MD [address] [place] [address] 47[address] Assigned Heart and Vascular Provider 05/01/23 [place] [address] CE[address] GASTELUM, [address] [address] Assigned Musculoskeletal Provider 04/12/24 documented as of this encounter
--- OUTSIDE RECORDS SUMMARY | 2024-07-28 14:30 | XMS_ITS | Encounter Summary ---
Author Organization [facility] Address [address] [place] [address] Care Team Providers Care Stem Processing Machine Operator Name Role Phone Esperanza Gatica MD Primary Care Provider + Esperanza Gatica MD Unavailable + eJsús Orourke MD Unavailable Alfreda Ray-C Primary Care Provider + Alfreda RayC Unavailable +[phone] Katrin Orellana PA-C Unavailable +[phone] Shanna Vang PA-C Unavailable +[phone] Fransisco Eddy MD Unavailable +[phone] Esperanza Gatica MD Unavailable + Esperanza Gatica MD Unavailable + Katrin OrellanaC Unavailable +[phone] Cristina Hsieh [facility] Unavailable +[phone] Alfreda Ray PA-C Unavailable +[phone] Alfreda Ray PA-C Unavailable +[phone] Cristina Hsieh [facility] Unavailable +[phone] Dakota Tatum MD Unavailable Dakota Tatum MD Unavailable + [phone] Srinivas Marie DO Unavailable +[phone] Reason for Visit * Reason Onset Date Comments Refill Request 12/23/2021 Encounter Details Date Type Department Care Team (Late st Contact Info) Description 12/23/2021 MyC Refill [facility] [address] [place] [address] [place] [address] [place] [address] Refill Request Social History Tobacco [...] Sex Assigned at Female 08/17/2018 7:56 AM LATHE TENDER Legal Sex Female 4:24 AM LATHE TENDER Gender Identity Female 08/17/2018 7:56 AM LATHE TENDER Sexual Orientation Straight 08/17/2018 7: 56 AM LATHE TENDER COVID-19 Exposure Response Date Recorded In the [...] PM) Provider Visit with Alfreda Ray PA-C [facility] (M [address] [address] Mar 05, 2022 2:00 PM (Arrive by 1:40 PM) Annual Wellness Visit with Esperanza Gatica MD [facility] ([facility] ) [address] [place] [phone] Yesi Britton RN documented in this encounter Plan of Treatment Upcoming Encounters Date Type Department Care Team (Late st Contact Info) Description 09/07/2024 10:00 AM CDT Office Visit [facility] [place] 6525 [facility] 200 [place] [phone] Fransisco Eddy MD [address] [place] [address] 399045 09/18/2024 2:00 PM CDT Virtual Visit [facility] [address] [place] [address] 105 [place] [address] Shanna Vang, PA-C [address] [place] [address] 03/29/2025 3:40 PM CDT Office Visit [address] [phone] Alfreda Ray PA-C [address] [place] [address] 688522 documented as of this encounter Visit Diagnoses Diagnosis Primary osteoarthritis involving multiple joints documented in this encounter Additional Health Concerns Assessment Noted Time PHQ-9 Depression Total Score: 4 09/05/19 10:39 AM CDT documented as of this encounter Care Teams Stem Processing Machine Operator Relationship Specialty Start Date End Date Esperanza Gatica MD PCP - General Family Practice 10/13/11 12/29/21 Alfreda Ray PA-C [address] [place] [address] 899502 PCP - General Family Medicine 12/30/21 [place] [address] [place] [address] Assigned PCP 09/29/20 07/31/22 Jesú[place] [address] [facility] [place] [address] Assigned Musculoskeletal Provider 10/20/20 04/17/22 Alfreda Ray PA-C [address] [place] [address] 704052 Referring Physician Family Medicine 12/31/21 Katrin Orellana PA-C [address] [place] [address] Physician Suspect Artist Dermatology 12/31/21 Shanna Vang PA-C [address] [place] [address] Assigned Cancer Care Provider 01/10/22 Fransisco Eddy MD [address] [place] [address] 419645 Assigned Rheumatology Provider 05/09/22 [place] [address] [place] [address] Assigned Pain Medication Provider 06/29/22 09/04/22 [place] [address] [address] [address] Assigned PCP 08/15/22 08/28/22 Katrin Orellana PA-C [address] [place] [address] 98 [place], [place] 510605 Assigned Surgical Provider 08/15/22 02/10/24 Cristina Hsieh [facility] 3[address] [facility] [place]BETH HER[place]DEZ [address] Pharmacist Pharmacist 09/07/22 Alfreda Ray PA-C [address] [place] [address] 739752 Assigned Pain Medication Provider 09/05/22 09/10/23 Alfreda Ray PA-C [address] [place] [address] Assigned PCP 08/29/22 Cristina Hsieh [facility] [address] [address] Assigned MTM Pharmacist 09/26/22 Dakota Tatum MD [address] [place] [address] Cardiovascular Disease 03/25/23 Dakota Tatum MD [address] [place] [address] Assigned Heart and Vascular Provider 05/01/23 [place] [address] [address]UM, [address] [address] Assigned Musculoskeletal Provider 04/12/24 documented as of this encounter
--- OUTSIDE RECORDS SUMMARY | 2024-07-28 14:30 | XMS_ITS | Clinical Summary ---
Author Organization [facility] Address [address], [place] [address] Care Team Providers Care Management Engineer Name Role Phone Epseranza Gatica MD Primary Care Provider [phone] Source Comments You are receiving this document as you are listed as the primary care provider,follow-up provider, or the patient has been referred to you for consultation.This is in compliance with the Medicare and[facility] EHR Incentive Program,which states Providers who transition their patient to another setting of careor provider of care or refers their patient to another provider of care shouldprovide summary care record for each transition of care or referral. [facility] Allergies No known active allergies Medications Medication Sig Dispensed Refills Start Date End Date Status Cholecalciferol 1.25 MG (54601 UT) TABS Take by mouth. Ac tive [...] Comments Blood Pressure 144/67 05/12/2021 3:11 PM GLASSWARE VERIFIER Pulse 66 05/12/2021 3:11 PM GLASSWARE VERIFIER Temperature - - Respiratory Rate 11 05/12/2021 3:11 PM GLASSWARE VERIFIER Oxygen Saturation - - Inhaled Oxygen Concentration [...] age to complete this topic Care Teams Management Engineer Relationship Specialty Start [place] [address] [place] [address] PCP - General Family Practice 01/02/21
--- OUTSIDE RECORDS SUMMARY | 2024-07-28 14:30 | XMS_ITS | Encounter Summary ---
Author Organization [facility] Address [address] [place] [address] Care Team Providers Care Industrial Editor Name Role Phone Alfa Marcelo MD Primary Care Provider Ajay Dailey MD Primary Care Provider [phone] Esperanza Gatica MD Primary Care Provider Esperanza Gatica MD Unavailable +[phone] Esperanza Gatica MD Unavailable +[phone] Esperanza Gatica MD Unavailable +[phone] Esperanza Gatica MD Unavailable +[phone] Esperanza Gatica MD Unavailable +[phone] Esperanza Gatica MD Unavailable +[phone] Jesús Orourke MD Unavailable Alfreda RayC Primary Care Provider + Alfreda RayC Unavailable +[phone] Katrin OrellanaC Unavailable Shanna Vang-C Unavailable +[phone] Fransisco Eddy MD Unavailable +[phone] Esperanza Gatica MD Unavailable +[phone] Esperanza Gatica MD Unavailable +[phone] Katrin OrellanaC Unavailable +[phone] Cristina Hsieh [facility] Unavailable +[phone] Cory Alfreda Liu PA-C Unavailable + [phone] Cory Alfreda Liu PA-C Unavailable +[phone] Cristina Hsieh [facility] Unavailable +[phone] Dakota Tatum MD Unavailable + [phone] Dakota Tatum MD Unavailable + [phone] Srinivas Marie DO Unavailable Reason for Visit * Reason Onset Date Comments Refill Request 04/08/2009 Atenolol and Howard phong Slk Encounter Details Date Type Department Care Team (Late st Contact Info) Description 04/08/2009 MyC Refill [address] [address] Mary Haas MD Refill Request (Atenolol and Vicodin Slk) Social History Tobacco Use Types Packs/Day Years Used Date Smoking Tobacco: Former Cigarettes Q uit: 06/21/1973 Alcohol Use Standard Drinks/Week Comments Yes 0 (1 standard drink = 0.6 oz pur e alcohol) rarely Comments No Sex and Gender Information Value Date Recorded Sex Assigned at Female 08/17/2018 7:56 AM ANALYTICS DIRECTOR Legal Sex Female 4:24 AM ANALYTICS DIRECTOR Gender Identity Female 08/17/2018 7:56 AM ANALYTICS DIRECTOR Sexual Orientation Straight 08/17/2018 7: 56 AM ANALYTICS DIRECTOR documented as of this encounter Miscellaneous Notes * Telephone Encounter - Esperanza Rene - 04/09/2009 10:46 AM CDT Left message on answering machine for patient to call back. Esperanza Reen RN. * Telephone Encounter - Mary Haas [...] Rene - 04/08/2009 10:25 AM CDTMessage from [facility]: Alexandria Bradshaw would like a refill of the following medications: ATENOLOL 25 MG OR TABS [CARISSA PAGAN] [facility] Comment: I have switched Doctors to Mary Haas in [place]. Thank you. documented in this encounter Plan of Treatment Upcoming Encounters Date Type Department Care Team (Late st Contact Info) Description 09/07/2024 10:00 AM CDT Office Visit [facility] [address] [place] [address] Fransisco Eddy MD [address] [place] [address] 09/18/2024 2:00 PM CDT Virtual Visit [facility] [address] [place] [address] Shanna Vang PARobinson [address] [place] [address] 03/29/2025 3:40 PM CDT Office Visit [address] [place] [phone] Alfreda Ray PA-C [address] [place] [address] 141362 documented as of this encounter Visit Diagnoses Diagnosis Tinnitus Unspecified tinnitus Pain in limb documented in this encounter Additional Health Concerns Infection Onset Date Last Indicated Resolved Time Rule Out COVID-19 05/08/2021 05/08/2021 05/09/2021 9:08 PM ANALYTICS DIRECTOR documented as of this encounter Care Teams Industrial Editor Relationship Specialty Start Date End Date Alfa Marcelo MD [facility] [address] [place] [address] PCP - General 01/22/04 01/28/11 Ajay Dailey MD [facility] [address] [place] [address] PCP - General Family Practice 01/29/11 10/12/11 Esperanza Gatica MD [facility] [address] [place] [address] PCP - General Family Practice 10/13/11 12/29/21 [place] [address] [address] [address] PCP - Assigned PCP 12/05/17 08/23/18 Alfreda Ray PA-C [address] [place] [address] PCP - General Family Medicine 12/30/21 [place] [address] [place] [address] Assigned PCP 12/05/17 09/30/19 [place] [address] [place] [address] Assigned PCP 10/01/19 03/02/20 [place] [address] [place] [address] Assigned PCP 03/03/20 05/25/20 [place] [address] [place] [address] Assigned PCP 05/26/20 09/28/20 [place] [address] [place] [address] Assigned PCP 09/29/20 07/31/22 [place] [address] [address] [place] [address] Assigned Musculoskeletal Provider 10/20/20 04/17/22 Alfreda Ray PA-C [address] [place] [address] Referring Physician Family Medicine 12/31/21 Katrin Orellana PA-C [address] [place] [address] Physician Ornament Maker Hand Dermatology 12/31/21 Shanna Vang PA-C [address] [place] [address] Assigned Cancer Care Provider 01/10/22 Fransisco Eddy MD [address] [place] [address] Assigned Rheumatology Provider 05/09/22 [place] [address] [place] [address] Assigned Pain Medication Provider 06/29/22 09/04/22 [place] [address] [place] [address] Assigned PCP 08/15/22 08/28/22 Katrin Orellana PA-C [address] [place] [address] Assigned Surgical Provider 08/15/22 02/10/24 Cristina Hsieh [facility] [address] [place] [address] [place] [address] Pharmacist Pharmacist 09/07/22 Alfreda Ray PA-C [address] [place] [address] Assigned Pain Medication Provider 09/05/22 09/10/23 Alfreda Ray PA-C [address] [place] [address] Assigned PCP 08/29/22 Cristina Hsieh, [facility] [address] [place] [address] Assigned MTM Pharmacist 09/26/22 Dakota Tatum MD [address] [place] [address] Cardiovascular Disease 03/25/23 Dakota Tatum MD [address] [place] [address] Assigned Heart and Vascular Provider 05/01/23 [place] [address] [address] Assigned Musculoskeletal Provider 04/12/24 documented as of this encounter
--- OUTSIDE RECORDS SUMMARY | 2024-07-28 14:30 | XMS_ITS | Encounter Summary ---
Author Organization [facility] Address [address] [place] [address] Care Team Providers Care Ware Cleaner Name Role Phone Alfa Marcelo MD Primary Care Provider Ajay Dailey MD Primary Care Provider [phone] Esperanza Gatica MD Primary Care Provider Esperanza Gatica MD Unavailable +[phone] Esperanza Gatica MD Unavailable +[phone] Esperanza Gatica MD Unavailable +[phone] Esperanza Gatica MD Unavailable +[phone] Esperanza Gatica MD Unavailable +[phone] Esperanza Gatica MD Unavailable +[phone] Jesús Orourke MD Unavailable Alfreda RayC Primary Care Provider + Alfreda RayC Unavailable +[phone] Katrin OrellanaC Unavailable Shanna Vang-C Unavailable +[phone] Fransisco Eddy MD Unavailable +[phone] Esperanza Gatica MD Unavailable +[phone] Esperanza Gatica MD Unavailable +[phone] Katrin Orellana PA-C Unavailable +[phone] Cristina Hsieh [facility] Unavailable +[phone] Cory Alfreda Liu PA-C Unavailable +[phone] Cory Alfreda Liu PA-C Unavailable +[phone] Cristina Hsieh [facility] Unavailable +[phone] Dakota Tatum MD Unavailable +[phone] Dakota Tatum MD Unavailable +[phone] Srinivas Marie DO Unavailable Encounter Details Date Type Department Care Team (Late st Contact Info) Description 10/19/[address] [address] Becky Leo MD [facility] [address] [address] [facility] Summary Social History Tobacco Use Types Packs/Day [...] Assigned at Female 08/17/2018 7:56 AM WIRE WEAVER CLOTH Legal Sex Female 4:24 AM WIRE WEAVER CLOTH Gender Identity Female 08/17/2018 7:56 AM WIRE WEAVER CLOTH Sexual Orientation Straight 08/17/2018 7: 56 AM WIRE WEAVER CLOTH documented as of this encounter Plan of Treatment Upcoming Encounters Date Type Department Care Team (Late st Contact Info) Description 09/07/2024 10:00 AM CDT Office Visit [address] 200 [place] [phone] Fransisco Eddy MD [address] [place] [address] 88 [place] [address] 09/18/2024 2:00 PM CDT Virtual Visit [facility] [address] [place] [phone] Shanna Vang, PAFilemonC [address] [place], [place] [phone] 03/29/2025 3:40 PM CDT Office Visit [address] [phone] Alfreda Ray PA-C [address] [place] [address] 030162 documented as of this encounter Visit Diagnoses Diagnosis [facility] Summary- Primary documented in this encounter Additional Health Concerns Infection Onset Date Last Indicated Resolved Time Rule Out COVID-19 05/08/2021 05/08/2021 05/09/2021 9:08 PM WIRE WEAVER CLOTH documented as of this encounter Care Teams Ware Cleaner Relationship Specialty Start Date End Date Alfa Marcelo MD [facility] [address] [place] [address] PCP - General 01/22/04 01/28/11 Ajay Dailey MD [facility] [address] [place], [place] [address] PCP - General Family Practice 01/29/11 10/12/11 Esperanza Gatica MD [facility] [address] [place], [place] 6[address] PCP - General Family Practice 10/13/11 12/29/21 [place] [address] [place] [address] PCP - Assigned PCP 12/05/17 08/23/18 Alfreda Ray PA-C [address] [place] [address] PCP - General Family Medicine 12/30/21 [place] [address] [address] [place], [place]BETH [address] Assigned PCP 12/05/17 09/30/19 [place] [address] [address] [address] Assigned PCP 10/01/19 03/02/20 [place] [address] [address] [place], LISBETH [address] Assigned PCP 03/03/20 05/25/20 [place] [address] [address] [address] Assigned PCP 05/26/20 09/28/20 [place] [address] [address] [address] Assigned PCP 09/29/20 07/31/22 [place] [address] [address] [place] [address] Assigned Musculoskeletal Provider 10/20/20 04/17/22 Alfreda Ray PA-C [address] [place] [address] 606282 Referring Physician Family Medicine 12/31/21 Katrin Orellana PA-C [address] [place] [address] Physician Distance Learning Unit Leader Dermatology 12/31/21 Shanna Vang PA-C [address] [place] [address] 989684 Assigned Cancer Care Provider 01/10/22 Fransisco Eddy MD [address] [place] [address] 509915 Assigned Rheumatology Provider 05/09/22 [place] [address] [place] [address] Assigned Pain Medication Provider 06/29/22 09/04/22 [place] [address] [place] [address] Assigned PCP 08/15/22 08/28/22 Katrin Orellana PA-C [address] [place] [address] Assigned Surgical Provider 08/15/22 02/10/24 Cristina Hsieh [facility] [address] [facility] [place] [address] Pharmacist Pharmacist 09/07/22 Alfreda Ray PA-C [address] [place] [address] Assigned Pain Medication Provider 09/05/22 09/10/23 Alfreda Ray PA-C [address] [place] [address] Assigned PCP 08/29/22 Cristina Hsieh, [facility] [address] [place] [address] Assigned MTM Pharmacist 09/26/22 Dakota Tatum MD [address] [place] [address] Cardiovascular Disease 03/25/23 Dakota Tatum MD [address] [place] [address] Assigned Heart and Vascular Provider 05/01/23 [place] [address] [facility] GASTEL[facility], [address] [address] Assigned Musculoskeletal Provider 04/12/24 documented as of this encounter
--- OUTSIDE RECORDS SUMMARY | 2024-07-28 14:30 | XMS_ITS | Encounter Summary ---
Author Organization [facility] Address [address] [place] [address] Care Team Providers Care Comb Setter Name Role Phone Esperanza Gatica MD Primary Care Provider + Esperanza Gatica MD Unavailable +[phone] Esperanza Gatica MD Unavailable +[phone] Esperanza Gatica MD Unavailable +[phone] Esperanza Gatica MD Unavailable +[phone] Esperanza Gatica MD Unavailable +[phone] Esperanza Gatica MD Unavailable +[phone] Jesús Orourke MD Unavailable Alfreda RayC Primary Care Provider + Alfreda Ray PA-C Unavailable + [phone] Katrin Orellana PA-C Unavailable [phone] Shanna VangC Unavailable +[phone] Fransisco Eddy MD Unavailable +[phone] Esperanza Gatica MD Unavailable +[phone] Esperanza Gatica MD Unavailable +[phone] Katrin Orellana PA-C Unavailable Cristina Hsieh [facility] Unavailable +[phone] Cory Alfreda Liu PA-C Unavailable +[phone] Alfreda Ray Alexa KING Unavailable [phone] Cristina Hsieh [facility] Unavailable Dakota Tatum MD Unavailable Dakota Tatum MD Unavailable Srinivas Marie DO Unavailable [phone] Reason for Visit * Reason Onset Date Comments Medication Refill 08/26/2017 lisinopril-hyd rochlorothiazide (PRINZIDE/ZESTORETIC) 10-12.5 MG per tablet Encounter Details Date Type Department Care Team (Late st Contact Info) Description 08/26/[address], [address] [place] [address] [place] [address] [place] [address] Medication Refill (lisinopril-hydrochloro thiazide (PRINZIDE/ZESTORETIC) [...] Sex Assigned at Female 08/17/2018 7:56 AM PREVENTIVE MAINTENANCE ENGINEER Legal Sex Female 4:24 AM PREVENTIVE MAINTENANCE ENGINEER Gender Identity Female 08/17/2018 7:56 AM PREVENTIVE MAINTENANCE ENGINEER Sexual Orientation Straight 08/17/2018 7: 56 AM PREVENTIVE MAINTENANCE ENGINEER documented as of this encounter Miscellaneous Notes * Telephone Encounter - Leigha Rinaldi RN - 08/26/2017 11:23 AM CST Prescription approved per [facility] Refill Protocol. Leigha Rinaldi RN ENTIVE MAINTENANCE ENGINEER * Telephone Encounter - Diya Stone - [...] No positive test in past 12 months ENTIVE MAINTENANCE ENGINEER documented in this encounter Plan of Treatment Upcoming Encounters Date Type Department Care Team (Late st Contact Info) Description 09/07/2024 10:00 AM CDT Office Visit [address] [address] Fransisco Eddy MD [address] [place] [address] 09/18/2024 2:00 PM CDT Virtual Visit [facility] [address] [facility] [address] [place] [address] Shanna Vang PA-C [address] [place] [address] 03/29/2025 3:40 PM CDT Office Visit [address] [phone] Alfreda Ray PA-C [address] [place] [address] 874702 documented as of this encounter Visit Diagnoses Diagnosis HTN (hypertension), benign Essential hypertension, benign documented in this encounter Additional Health Concerns Infection Onset Date Last Indicated Resolved Time Rule Out COVID-19 05/08/2021 05/08/2021 05/09/2021 9:08 PM PREVENTIVE MAINTENANCE ENGINEER Assessment Noted Time PHQ-9 Depression Total Score: 0 08/18/19 17 7:09 AM PREVENTIVE MAINTENANCE ENGINEER documented as of this encounter Care Teams Comb Setter Relationship Specialty Start Date End Date Esperanza Gatica MD PCP - General Family Practice 10/13/11 12/29/21 [place] [address] [facility] [place] [address] PCP - Assigned PCP 12/05/17 08/23/18 Alfreda Ray PA-C [address] [place] [address] PCP - General Family Medicine 12/30/21 [place] [address] [place] [address] Assigned PCP 12/05/17 09/30/19 [place] [address] [place] [address] Assigned PCP 10/01/19 03/02/20 [place] [address] [place] [address] Assigned PCP 03/03/20 05/25/20 [place] [address] [place] [address] Assigned PCP 05/26/20 09/28/20 [place] [address] [place] [address] Assigned PCP 09/29/20 07/31/22 Jesú[place] [address] [place] [address] Assigned Musculoskeletal Provider 10/20/20 04/17/22 Alfreda Ray PA-C [address] [place] [address] 898872 Referring Physician Family Medicine 12/31/21 Katrin Orellana PA-C [address] [address] Physician Plunger Machine Operator Dermatology 12/31/21 Shanna Vang PA-C [address] [place] [address] Assigned Cancer Care Provider 01/10/22 Fransisco Eddy MD [address] [place] [address] 88 [place] [address] Assigned Rheumatology Provider 05/09/22 [place] [address] [place] [address] Assigned Pain Medication Provider 06/29/22 09/04/22 [place] [address] [place] [address] Assigned PCP 08/15/22 08/28/22 Katrin Orellana PA-C [address] [place] [address] 98 [place], [place] 902715 Assigned Surgical Provider 08/15/22 02/10/24 Cristina Hsieh [facility] [address] [facility] [place] [address] Pharmacist Pharmacist 09/07/22 Alfreda Ray PA-C [address] [place] [address] 648742 Assigned Pain Medication Provider 09/05/22 09/10/23 Alfreda Ray PA-C [address] [place] [address] Assigned PCP 08/29/22 Cristina Hsihe, [facility] [address] [facility] [address] [place] [address] Assigned MTM Pharmacist 09/26/22 Dakota Tatum MD [address] [place] [address] 306255 Cardiovascular Disease 03/25/23 Dakota Tatum MD [address] [place] [address] 212865 Assigned Heart and Vascular Provider 05/01/23 [place] [address] [address]UM, [facility] [address] [place] [address] Assigned Musculoskeletal Provider 04/12/24 documented as of this encounter
--- OUTSIDE RECORDS SUMMARY | 2024-07-28 14:30 | XMS_ITS | Encounter Summary ---
Author Organization [facility] Address [address] [place] [address] Care Team Providers Care Front Attendant Name Role Phone Alfa Marcelo MD Primary Care Provider Ajay Dailey MD Primary Care Provider [phone] Esperanza Gatica MD Primary Care Provider Esperanza Gatica MD Unavailable +[phone] Esperanza Gatica MD Unavailable +[phone] Esperanza Gatica MD Unavailable +[phone] Esperanza Gatica MD Unavailable +[phone] Esperanza Gatica MD Unavailable +[phone] Esperanza Gatica MD Unavailable +[phone] Jesús Orourke MD Unavailable Alfreda RayC Primary Care Provider + Alfreda RayC Unavailable +[phone] Katrin OrellanaC Unavailable +[phone] Shanna Vang-C Unavailable +[phone] Fransisco Eddy MD Unavailable +[phone] Esperanza Gatica MD Unavailable +[phone] Esperanza Gatica MD Unavailable +[phone] Katrin OrellanaC Unavailable Cristina Hsieh [facility] Unavailable +[phone] Cory Alfreda Liu PA-C Unavailable +[phone] Cory Alfreda Liu PA-C Unavailable +[phone] Cristina Hsieh [facility] Unavailable +[phone] Dakota Tatum MD Unavailable [phone] Dakota Tatum MD Unavailable +[phone] Srinivas Marie DO Unavailable [phone] Encounter Details Date Type Department Care Team (Late st Contact Info) Description 11/03/[address] [address] Becky Leo MD [facility] [address] [address] [facility] Note Social History Tobacco Use Types [...] Sex Assigned at Female 08/17/2018 7:56 AM BINDER CUTTER HAND Legal Sex Female 4:24 AM BINDER CUTTER HAND Gender Identity Female 08/17/2018 7:56 AM BINDER CUTTER HAND Sexual Orientation Straight 08/17/2018 7: 56 AM BINDER CUTTER HAND documented as of this encounter Plan of Treatment Upcoming Encounters Date Type Department Care Team (Late st Contact Info) Description 09/07/2024 10:00 AM CDT Office Visit [address] 200 [place] [phone] Fransisco Eddy MD [address] [facility] 88 [place] [address] 09/18/2024 2:00 PM CDT Virtual Visit [facility] [address] [place] [phone] Shanna Vang PARobinson [address] [place], [place] [address] 03/29/2025 3:40 PM CDT Office Visit [address] [phone] Alfreda Ray PA-C [address] [place] [address] 508292 documented as of this encounter Visit Diagnoses Diagnosis [facility] Note- Primary documented in this encounter Additional Health Concerns Infection Onset Date Last Indicated Resolved Time Rule Out COVID-19 05/08/2021 05/08/2021 05/09/2021 9:08 PM BINDER CUTTER HAND documented as of this encounter Care Teams Front Attendant Relationship Specialty Start Date End Date Alfa Marcelo MD [facility] [address] [place] [address] PCP - General 01/22/04 01/28/11 Ajay Dailey MD [facility] [address] [place], [place] [phone] PCP - General Family Practice 01/29/11 10/12/11 Esperanza Gatica MD [facility] [address] [place], [place] [phone] PCP - General Family Practice 10/13/11 12/29/21 [place] [address] [place] [address] PCP - Assigned PCP 12/05/17 08/23/18 Alfreda Ray PA-C [address] [place] [address] PCP - General Family Medicine 12/30/21 [place] [address] [address] [place], [place]ETH [address] Assigned PCP 12/05/17 09/30/19 [place] [address] [address] [place], [place]ETH [address] Assigned PCP 10/01/19 03/02/20 [place] [address] [address] [place], LISBETH [address] Assigned PCP 03/03/20 05/25/20 [place] [address] [place] GARCIA [address] Assigned PCP 05/26/20 09/28/20 [place] [address] [place] GARCIA [address] Assigned PCP 09/29/20 07/31/22 Jesú[place] [address] [place] [address] Assigned Musculoskeletal Provider 10/20/20 04/17/22 Alfreda Ray PA-C [address] [place] [address] 635812 Referring Physician Family Medicine 12/31/21 Katrin Orellana PA-C [address] [place] [address] 426835 Physician Inside Sales Coordinator Dermatology 12/31/21 Shanna Vang PA-C [address] [place] [address] Assigned Cancer Care Provider 01/10/22 Fransisco Eddy MD [address] [place] [address] 184045 Assigned Rheumatology Provider 05/09/22 [place] [address] [place] [address] Assigned Pain Medication Provider 06/29/22 09/04/22 [place] [address] [place] [address] Assigned PCP 08/15/22 08/28/22 Katrin Orellana PA-C [address] [place] [address] 083025 Assigned Surgical Provider 08/15/22 02/10/24 Cristina Hsieh [facility] [address] [place] [address] [place] [address] Pharmacist Pharmacist 09/07/22 Alfreda Ray PA-C [address] [place] [address]681 Assigned Pain Medication Provider 09/05/22 09/10/23 Alfreda Ray PA-C [address] [place] [address] Assigned PCP 08/29/22 Cristina Hsieh, [facility] [address] [place] [address] Assigned MTM Pharmacist 09/26/22 Dakota Tatum MD [address] [place] [address] Cardiovascular Disease 03/25/23 Dakota Tatum MD [address] [place] [address] Assigned Heart and Vascular Provider 05/01/23 [place] [address] [place] , [address] [address] Assigned Musculoskeletal Provider 04/12/24 documented as of this encounter
--- OUTSIDE RECORDS SUMMARY | 2024-07-28 14:30 | XMS_ITS | Encounter Summary ---
Author Organization [facility] Address [address] [place] [address] Care Team Providers Care Checker Product Design Name Role Phone Esperanza Gatica MD Primary Care Provider + Esperanza Gatica MD Unavailable +[phone] Esperanza Gatica MD Unavailable +[phone] Esperanza Gatica MD Unavailable +[phone] Esperanza Gatica MD Unavailable +[phone] Esperanza Gatica MD Unavailable +[phone] Esperanza Gatica MD Unavailable +[phone] Jesús Orourke MD Unavailable Alfreda RayC Primary Care Provider + Alfread Ray PA-C Unavailable + [phone] Katrin Orellana PA-C Unavailable [phone] Shanna VangC Unavailable +[phone] Fransisco Eddy MD Unavailable [phone] Esperanza Gatica MD Unavailable +[phone] Esperanza Gatica MD Unavailable +[phone] Katrin Orellana PA-C Unavailable Cristina Hsieh [facility] Unavailable RayAlfreda PA-C Unavailable [phone] Cory Alfreda Liu PA-C Unavailable [phone] Cristina Hsieh [facility] Unavailable Dakota Tatum MD Unavailable Dakota Tatum MD Unavailable Srinivas Marie DO Unavailable [phone] Encounter Details Date Type Department Care Team (Late st Contact Info) Description 08/17/2017 MyC Medical Advice [address], [address] [place] [address] [place] [address] [place] [address] Social History Tobacco Use Types [...] Assigned at Female 08/17/2018 7:56 AM TIRE FIXER Legal Sex Female 4:24 AM TIRE FIXER Gender Identity Female 08/17/2018 7:56 AM TIRE FIXER Sexual Orientation Straight 08/17/2018 7: 56 AM TIRE FIXER documented as of this encounter Plan of Treatment Upcoming Encounters Date Type Department Care Team (Late st Contact Info) Description 09/07/2024 10:00 AM CDT Office Visit [facility] [address] [address] Fransisco Eddy MD [address] [place] [address] 09/18/2024 2:00 PM CDT Virtual Visit [facility] [address] [place] [address] Shanna Vagn PA-C [address] [place] [address] 03/29/2025 3:40 PM CDT Office Visit [address] [place] [address] Alfreda Ray PA-C [address] [place] [address] 167282 documented as of this encounter Visit Diagnoses Not on filedocumented in this encounter Additional Health Concerns Infection Onset Date Last Indicated Resolved Time Rule Out COVID-19 05/08/2021 05/08/2021 05/09/2021 9:08 PM TIRE FIXER Assessment Noted Time PHQ-9 Depression Total Score: 0 08/18/19 17 7:09 AM TIRE FIXER documented as of this encounter Care Teams Checker Product Design Relationship Specialty Start Date End Date Esperanza Gatica MD PCP - General Family Practice 10/13/11 12/29/21 [place] [address] [place] GARCIA [address] PCP - Assigned PCP 12/05/17 08/23/18 Alfreda Ray PA-C [address] [place] [address] PCP - General Family Medicine 12/30/21 [place] [address] [place] GARCIA [address] Assigned PCP 12/05/17 09/30/19 [place] [address] [address] [place] [address] Assigned PCP 10/01/19 03/02/20 [place] [address] [place] [address] Assigned PCP 03/03/20 05/25/20 [place] [address] [place] GARCIA [address] Assigned PCP 05/26/20 09/28/20 [place] [address] [place] [address] Assigned PCP 09/29/20 07/31/22 [place] [address] [place], [place] 2466[address] Assigned Musculoskeletal Provider 10/20/20 04/17/22 Alfreda Ray PA-C [address] [place] [address] 093802 Referring Physician Family Medicine 12/31/21 Katrin Orellana PA-C [address] [place] [address] 778145 Physician Senior Information Security Analyst Dermatology 12/31/21 Shanna Vang PA-C [facility] [address] 566964 Assigned Cancer Care Provider 01/10/22 Fransisco Eddy MD [address] [place] [address] Assigned Rheumatology Provider 05/09/22 [place] [address] [place] [address] Assigned Pain Medication Provider 06/29/22 09/04/22 [place] [address] [place] [address] Assigned PCP 08/15/22 08/28/22 Katrin Orellana PA-C [address] [place] [address] Assigned Surgical Provider 08/15/22 02/10/24 Cristina Hsieh [facility] [address] [place] [address] [place] [address] Pharmacist Pharmacist 09/07/22 Alfreda Ray PA-C [address] [place] [address] Assigned Pain Medication Provider 09/05/22 09/10/23 Alfreda Ray PA-C [address] [place] [address] Assigned PCP 08/29/22 Cristina Hsieh [facility] [address] [phone] Assigned MTM Pharmacist 09/26/22 Dakota Tatum MD [address] [place] [address] 088975 Cardiovascular Disease 03/25/23 Dakota Tatum MD [address] [place] [address] 668285 Assigned Heart and Vascular Provider 05/01/23 [place] [address] [address], [address] [address] Assigned Musculoskeletal Provider 04/12/24 documented as of this encounter
--- OUTSIDE RECORDS SUMMARY | 2024-07-28 14:31 | XMS_ITS | Encounter Summary ---
Author Organization [facility] Address [address] [place] [address] Care Team Providers Care Zipper Repairer Name Role Phone Esperanza Gatica MD Primary Care Provider + Esperanza Gatica MD Unavailable +[phone] Esperanza Gatica MD Unavailable +[phone] Esperanza Gatica MD Unavailable +[phone] Esperanza Gatica MD Unavailable +139 Esperanza Gatica MD Unavailable +[phone] Esperanza Gatica MD Unavailable +[phone] Jesús Orourke MD Unavailable Alfreda RayC Primary Care Provider + Alfreda Ray PA-C Unavailable + [phone] Katrin Orellana PA-C Unavailable [phone] Shanna VangC Unavailable +[phone] Fransisco Eddy MD Unavailable [phone] Esperanza Gatica MD Unavailable +[phone] Esperanza Gatica MD Unavailable +[phone] Katrin Orellana PA-C Unavailable Cristina Hsieh [facility] Unavailable Cory Alfreda Liu PA-C Unavailable +[phone] Alfreda Ray Alexa KING Unavailable +[phone] Cristina Hsieh [facility] Unavailable Dakota Tatum MD Unavailable Dakota Tatum MD Unavailable [phone] Srinivas Marie DO Unavailable [phone] Reason for Visit * Reason Onset Date Comments MyChart Communication 06/29/2017 Encounter Details Date Type Department Care Team (Late st Contact Info) Description 06/29/2017 MyC Medical Advice [address], [address] [place] [address] [place] [address] [place] [address] MyChart Communication Social History Tobacco [...] Assigned at Female 08/17/2018 7:56 AM WATCH SUPERVISOR Legal Sex Female 4:24 AM WATCH SUPERVISOR Gender Identity Female 08/17/2018 7:56 AM WATCH SUPERVISOR Sexual Orientation Straight 08/17/2018 7: 56 AM WATCH SUPERVISOR documented as of this encounter Miscellaneous Notes * Telephone Encounter - Yuliet Barrera RN - 06/29/2017 10:28 AM CST Recommend appt for sinus inf Yuliet Barrera RN, BS Clinical Nurse Triage. H SUPERVISOR documented in this encounter Plan of Treatment Upcoming Encounters Date Type Department Care Team (Late st Contact Info) Description 09/07/2024 10:00 AM CDT Office Visit [facility] Check [address] [facility] 200 [place] [phone] Fransisco Eddy MD [address] [place] [address] 88 [place] [address] 09/18/2024 2:00 PM CDT Virtual Visit [facility] [address] [place] [address] 105 [place] [address] Shanna Vang PA-C [address] [place] [address] 03/29/2025 3:40 PM CDT Office Visit [address] [phone] Alfreda Ray PA-C [address] [place] [address] documented as of this encounter Visit Diagnoses Not on filedocumented in this encounter Additional Health Concerns Infection Onset Date Last Indicated Resolved Time Rule Out COVID-19 05/08/2021 05/08/2021 05/09/2021 9:08 PM WATCH SUPERVISOR Assessment Noted Time PHQ-9 Depression Total Score: 0 08/18/19 17 7:09 AM WATCH SUPERVISOR documented as of this encounter Care Teams Zipper Repairer Relationship Specialty Start Date End Date Esperanza Gatica MD PCP - General Family Practice 10/13/11 12/29/21 [place] [address] [address] [facility] [place] [address] PCP - Assigned PCP 12/05/17 08/23/18 Alfreda Ray PA-C [address] [place] [address] PCP - General Family Medicine 12/30/21 [place] [address] [place] [address] Assigned PCP 12/05/17 09/30/19 [place] [address] [address] [place] [address] Assigned PCP 10/01/19 03/02/20 [place] [address] [place] [address] Assigned PCP 03/03/20 05/25/20 [place] [address] [place] [address] Assigned PCP 05/26/20 09/28/20 [place] [address] [place] [address] Assigned PCP 09/29/20 07/31/22 [place] [address] [place] [address] Assigned Musculoskeletal Provider 10/20/20 04/17/22 Alfreda Ray PA-C [address] [place] [address] Referring Physician Family Medicine 12/31/21 Katrin Orellana PA-C [address] [facility] 98 [place] [address] Physician Trim Technician Dermatology 12/31/21 Shanna Vang PA-C [address] [place] [address] 662634 Assigned Cancer Care Provider 01/10/22 Fransisco Eddy MD [address] [place] [address] 729525 Assigned Rheumatology Provider 05/09/22 [place] [address] [place] [address] Assigned Pain Medication Provider 06/29/22 09/04/22 [place] [address] [place] [address] Assigned PCP 08/15/22 08/28/22 Katrin Orellana PA-C [address] [place] [address] Assigned Surgical Provider 08/15/22 02/10/24 Cristina Hsieh [facility] [address] [facility] [place] [address] Pharmacist Pharmacist 09/07/22 Alfreda Ray PA-C [address] [place] [address] Assigned Pain Medication Provider 09/05/22 09/10/23 Alfreda Ray PA-C [address] [place] [address]898 Assigned PCP 08/29/22 Cristian Hsieh [facility] [address] [facility] 101 [place] [address] Assigned MTM Pharmacist 09/26/22 Dakota Tatum MD [address] [place] [address] 977985 Cardiovascular Disease 03/25/23 Dakota Tatum MD [address] [place] [address] Assigned Heart and Vascular Provider 05/01/23 [place] [address] [address], [facility] 300 [place] [address] Assigned Musculoskeletal Provider 04/12/24 documented as of this encounter
--- OUTSIDE RECORDS SUMMARY | 2024-07-28 14:31 | XMS_ITS | Encounter Summary ---
Author Organization [facility] Address [address] [place] [address] Care Team Providers Care Rock Mason Apprentice Name Role Phone Esperanza Gatica MD Primary Care Provider + Esperanza Gatica MD Unavailable + Esperanza Gatica MD Unavailable + Esperanza Gatica MD Unavailable + Esperanza Gatica MD Unavailable + Esperanza Gatica MD Unavailable + Jesús Orourke MD Unavailable Alfreda Ray-C Primary Care Provider + Alfreda Ray-C Unavailable + [phone] Katrin OrellanaC Unavailable +[phone] Shanna Vang-C Unavailable +[phone] Fransisco Eddy MD Unavailable +[phone] Esperanza Gatica MD Unavailable + Esperanza Gatica MD Unavailable + Katrin OrellanaC Unavailable +[phone] Cristina Hsieh [facility] Unavailable +[phone] Ray, Alfreda Liu PA-C Unavailable +[phone] Ray, Alfreda Liu PA-C Unavailable +[phone] Cristina Hsieh [facility] Unavailable +[phone] NicholDakota yousif MD Unavailable [phone] LaDakota guerra MD Unavailable [phone] Srinivas Marie DO Unavailable [phone] Reason for Visit * Reason Onset Date Comments MyChart Communication 10/04/2018 Encounter Details Date Type Department Care Team (Late st Contact Info) Description 10/04/2018 MyC Medical Advice [address], [address] [place] [address] [place] [address] [place] [address] MyChart Communication Social History Tobacco [...] Sex Assigned at Female 08/17/2018 7:56 AM WELFARE ADMINISTRATOR Legal Sex Female 4:24 AM WELFARE ADMINISTRATOR Gender Identity Female 08/17/2018 7:56 AM WELFARE ADMINISTRATOR Sexual Orientation Straight 08/17/2018 7: 56 AM WELFARE ADMINISTRATOR documented as of this encounter Plan of Treatment Upcoming Encounters Date Type Department Care Team (Late st Contact Info) Description 09/07/2024 10:00 AM CDT Office Visit [address] 200 [place] [address] Fransisco Eddy MD [address] [place] [address] 09/18/2024 2:00 PM CDT Virtual Visit [facility] [address] [facility] 105 [place] [address] Shanna Vang PA-C [address] [place] [address] 03/29/2025 3:40 PM CDT Office Visit [address] [place] [address] Alfreda Ray PA-C [address] [place] [address] 178052 documented as of this encounter Visit Diagnoses Not on filedocumented in this encounter Additional Health Concerns Infection Onset Date Last Indicated Resolved Time Rule Out COVID-19 05/08/2021 05/08/2021 05/09/2021 9:08 PM WELFARE ADMINISTRATOR Assessment Noted Time PHQ-9 Depression Total Score: 1 08/20/19 19 1:44 PM WELFARE ADMINISTRATOR documented as of this encounter Care Teams Rock Mason Apprentice Relationship Specialty Start Date End Date Esperanza Gatica MD PCP - General Family Practice 10/13/11 12/29/21 Alfreda Ray PA-C [address] [place] [address] 244062 PCP - General Family Medicine 12/30/21 [place] [address] [place] GARCIA [address] Assigned PCP 12/05/17 09/30/19 [place] [address] [place] GARCIA [address] Assigned PCP 10/01/19 03/02/20 [place] [address] [place] [address] Assigned PCP 03/03/20 05/25/20 [place] [address] [place] [address] Assigned PCP 05/26/20 09/28/20 [place] [address] [place] [address] Assigned PCP 09/29/20 07/31/22 Jesú[place] [address] [address] Assigned Musculoskeletal Provider 10/20/20 04/17/22 Alfreda Ray PA-C [address] [place] [address] 269662 Referring Physician Family Medicine 12/31/21 Katrin Orellana PA-C [address] [place] [address] 668745 Physician Wood Heel Cementer Dermatology 12/31/21 Shanna Vang PA-C [address] [place] [address] 868634 Assigned Cancer Care Provider 01/10/22 Fransisco Eddy MD [address] [place] [address] Assigned Rheumatology Provider 05/09/22 [place] [address] [address] [place] [address] Assigned Pain Medication Provider 06/29/22 09/04/22 [place] [address] [place] [address] Assigned PCP 08/15/22 08/28/22 Katrin Orellana PA-C [address] [place] [address]77 Assigned Surgical Provider 08/15/22 02/10/24 Cristina Hsieh [facility] [address] [facility] [place]BETH [place]NANDEZ [address] Pharmacist Pharmacist 09/07/22 Alfreda Ray PA-C [address] [place] [address] Assigned Pain Medication Provider 09/05/22 09/10/23 Alfreda Ray PA-C [address] [place] [address]689 Assigned PCP 08/29/22 Cristina Hsieh [facility] [address] [address] Assigned MTM Pharmacist 09/26/22 Dakota Tatum MD [address] [place] [address] Cardiovascular Disease 03/25/23 Dakota Tatum MD 6 [place], [place] 821265 Assigned Heart and Vascular Provider 05/01/23 [place] [address] [address], [address] [address] Assigned Musculoskeletal Provider 04/12/24 documented as of this encounter
--- OUTSIDE RECORDS SUMMARY | 2024-07-28 14:31 | XMS_ITS | Encounter Summary ---
Author Organization [facility] Address [address] [place] [address] Care Team Providers Care Bricklayer Supervisor Name Role Phone Esperanza Gatica MD Primary Care Provider + Esperanza Gatica MD Unavailable + Esperanza Gatica MD Unavailable + Esperanza Gaitca MD Unavailable + Esperanza Gatica MD Unavailable + Esperanza Gatica MD Unavailable + Jesús Orourke MD Unavailable Alfreda Ray-C Primary Care Provider + Alfreda Ray-C Unavailable + [phone] Katrin OrellanaC Unavailable +[phone] Shanna Vang-C Unavailable +[phone] Fransisco Eddy MD Unavailable +[phone] Esperanza Gatica MD Unavailable + Esperanza Gatica MD Unavailable + Katrin OrellanaC Unavailable +[phone] Cristina Hsieh [facility] Unavailable +60 Ho Raymustapha Liu PA-C Unavailable +[phone] Ray, Alfreda Liu PA-C Unavailable +[phone] Cristina Hsieh [facility] Unavailable +[phone] Dakota Tatum MD Unavailable +[phone] Dakota Tatum MD Unavailable +[phone] Srinivas Marie DO Unavailable +[phone] Reason for Visit * Reason Onset Date Comments Medication Question 09/19/2018 Gabapentin d osing Encounter Details Date Type Department Care Team (Late st Contact Info) Description 09/19/2018 MyC Medical Advice [address], [address] [place] [address] [place] [address] [place] [address] Medication Question (Gabapentin dosing) Social [...] Sex Assigned at Female 08/17/2018 7:56 AM SALESPERSON WIGS Legal Sex Female 4:24 AM SALESPERSON WIGS Gender Identity Female 08/17/2018 7:56 AM SALESPERSON WIGS Sexual Orientation Straight 08/17/2018 7: 56 AM SALESPERSON WIGS documented as of this encounter Miscellaneous Notes [...] CDT Office Visit [facility] [address] 200 [place] [phone] Fransisco Eddy MD [address] [place] [address] 88 [place], [place] 377195 09/18/2024 2:00 PM CDT Virtual Visit [facility] [place] [address] [place] [phone] Shanna Vang, PA-C [address] [place] [address] 03/29/2025 3:40 PM CDT Office Visit [address] [place] [phone] Alfreda Ray PA-C [address] [place] [address] 265262 documented as of this encounter Visit Diagnoses Not on filedocumented in this encounter Additional Health Concerns Infection Onset Date Last Indicated Resolved Time Rule Out COVID-19 05/08/2021 05/08/2021 05/09/2021 9:08 PM SALESPERSON WIGS Assessment Noted Time PHQ-9 Depression Total Score: 1 08/20/19 19 1:44 PM SALESPERSON WIGS documented as of this encounter Care Teams Bricklayer Supervisor Relationship Specialty Start Date End Date Esperanza Gatica MD PCP - General Family Practice 10/13/11 12/29/21 Alfreda Ray PA-C [address] [place] [address] PCP - General Family Medicine 12/30/21 [place] [address] LISBETH GARCIA [address] Assigned PCP 12/05/17 09/30/19 [place] [address] [place] GARCIA 76745 Assigned PCP 10/01/19 03/02/20 [place] [address] L[place] GARCIA 98479 Assigned PCP 03/03/20 05/25/20 [place] [address] L[place] GARCIA 65699 Assigned PCP 05/26/20 09/28/20 [place] [address] L[place] GARCIA 27221 Assigned PCP 09/29/20 07/31/22 Jesú[place] [address] [place]ETH GALAN [address] Assigned Musculoskeletal Provider 10/20/20 04/17/22 Alfreda Ray PA-C [address] [place] [address] Referring Physician Family Medicine 12/31/21 Katrin Orellana PA-C [address] [place] [address] Physician Siebel Consultant Dermatology 12/31/21 Shanna Vang PA-C [facility] . [address] [place] [address] 030514 Assigned Cancer Care Provider 01/10/22 Fransisco Eddy MD [address] [place] [address] 597035 Assigned Rheumatology Provider 05/09/22 [place] [address] [place] [address] Assigned Pain Medication Provider 06/29/22 09/04/22 [place] [address] [address] [facility] [address] Assigned PCP 08/15/22 08/28/22 Katrin Orellana PA-C [address] [place] [address] Assigned Surgical Provider 08/15/22 02/10/24 Cristina Hsieh, [facility] [address] [place] [address] [place] [address] Pharmacist Pharmacist 09/07/22 Alfreda Ray PA-C [address] [place] [address] 32583 Assigned Pain Medication Provider 09/05/22 09/10/23 Alfreda Ray PA-C [address] [place] [address] Assigned PCP 08/29/22 Cristina Hsieh, [facility] [address] [place] [address]153 Assigned MTM Pharmacist 09/26/22 Dakota Tatum MD [address] [place] [address]269 Cardiovascular Disease 03/25/23 Dakota Tatum MD [address] [place] [address] Assigned Heart and Vascular Provider 05/01/23 [place] [address] [address] Assigned Musculoskeletal Provider 04/12/24 documented as of this encounter
--- OUTSIDE RECORDS SUMMARY | 2024-07-28 14:31 | XMS_ITS | Encounter Summary ---
Author Organization [facility] Address [address] [place] [address] Care Team Providers Care Weapons Officer Name Role Phone Esperanza Gatica MD Primary Care Provider + Esperanza Gatica MD Unavailable +[phone] Esperanza Gatica MD Unavailable +[phone] Esperanza Gatica MD Unavailable +[phone] Esperanza Gatica MD Unavailable +[phone] Esperanza Gatica MD Unavailable +[phone] Esperanza Gatica MD Unavailable +[phone] Jesús Orourke MD Unavailable Alfreda RayC Primary Care Provider + Alfreda Ray PA-C Unavailable + [phone] Katrin Orellana PA-C Unavailable [phone] Shanna VangC Unavailable +[phone] Fransisco Eddy MD Unavailable +[phone] Esperanza Gatica MD Unavailable +[phone] Esperanza Gatica MD Unavailable +[phone] Katrin Orellana PA-C Unavailable Cristina Hsieh [facility] Unavailable Alfreda Ray Alexa KING Unavailable Alfreda Ray Alexa KING Unavailable [phone] Cristina Hsieh [facility] Unavailable Dakota Tatum MD Unavailable Dakota Tatum MD Unavailable Srinivas Marie DO Unavailable [phone] Reason for Visit * Reason Onset Date Comments Imm/Inj 08/19/2018 Shingrix Encounter Details Date Type Department Care Team (Late st Contact Info) Description 08/19/2018 MyC Medical Advice [place] [address] [facility], [address] [place] [address] [place] [address] [place] [address] Imm/Inj (Shingrix) Social History Tobacco [...] Sex Assigned at Female 08/17/2018 7:56 AM COMMUNICATIONS SCIENTIST Legal Sex Female 4:24 AM COMMUNICATIONS SCIENTIST Gender Identity Female 08/17/2018 7:56 AM COMMUNICATIONS SCIENTIST Sexual Orientation Straight 08/17/2018 7: 56 AM COMMUNICATIONS SCIENTIST documented as of this encounter Plan of Treatment Upcoming Encounters Date Type Department Care Team (Late st Contact Info) Description 09/07/2024 10:00 AM CDT Office Visit [address] 200 [place] [address] Fransisco Eddy MD [address] [place] [address] 09/18/2024 2:00 PM CDT Virtual Visit [facility] [address] [facility] [address] [place] [address] Shanna Vang PA-C [address] [place] [address] 03/29/2025 3:40 PM CDT Office Visit [address] [phone] Alfreda Ray PA-C [address] [place] [address] documented as of this encounter Visit Diagnoses Not on filedocumented in this encounter Additional Health Concerns Infection Onset Date Last Indicated Resolved Time Rule Out COVID-19 05/08/2021 05/08/2021 05/09/2021 9:08 PM COMMUNICATIONS SCIENTIST Assessment Noted Time PHQ-9 Depression Total Score: 1 08/20/19 19 1:44 PM COMMUNICATIONS SCIENTIST documented as of this encounter Care Teams Weapons Officer Relationship Specialty Start Date End Date Esperanza Gatica MD PCP - General Family Practice 10/13/11 12/29/21 [place] [address] [place] [address] PCP - Assigned PCP 12/05/17 08/23/18 Alfreda Ray PA-C [address] [place] [address] PCP - General Family Medicine 12/30/21 [place] [address] [place] [address] Assigned PCP 12/05/17 09/30/19 [place] [address] [place] [address] Assigned PCP 10/01/19 03/02/20 [place] [address] [place] [address] Assigned PCP 03/03/20 05/25/20 [place] [address] [place] [address] Assigned PCP 05/26/20 09/28/20 [place] [address] [place] [address] Assigned PCP 09/29/20 07/31/22 Jesú[place] [address] [place] [address] Assigned Musculoskeletal Provider 10/20/20 04/17/22 Alfreda Ray PA-C [address] [place] [address] 133812 Referring Physician Family Medicine 12/31/21 Katrin Orellana PA-C [address] [address] Physician Air Quality Specialist Dermatology 12/31/21 Shanna Vang PA-C [address] [place] [address] Assigned Cancer Care Provider 01/10/22 Fransisco Eddy MD [address] [place] [address] 88 [place] [address] Assigned Rheumatology Provider 05/09/22 [place] [address] [place] [address] Assigned Pain Medication Provider 06/29/22 09/04/22 [place] [address] [place] [address] Assigned PCP 08/15/22 08/28/22 Katrin Orellana PA-C [address] [place] [address] 98 [place], [place] 042715 Assigned Surgical Provider 08/15/22 02/10/24 Cristina Hsieh [facility] [address] [facility] LISBETH HERNANDEZ [address] Pharmacist Pharmacist 09/07/22 Alfreda Ray PA-C [address] [place] [address] 686852 Assigned Pain Medication Provider 09/05/22 09/10/23 Alfreda Ray PA-C [address] [place] [address] Assigned PCP 08/29/22 Cristina Hsieh, [facility] [address] [facility] [address] [place] [address] Assigned MTM Pharmacist 09/26/22 Dakota Tatum MD [address] [place] [address] 842315 Cardiovascular Disease 03/25/23 Dakota Tatum MD [address] [place] [address] 911215 Assigned Heart and Vascular Provider 05/01/23 [place] [address] [address], [facility] [address] [place] [address] Assigned Musculoskeletal Provider 04/12/24 documented as of this encounter
--- OUTSIDE RECORDS SUMMARY | 2024-07-28 14:31 | XMS_ITS | Encounter Summary ---
Author Organization [facility] Address [address] [place] [address] Care Team Providers Care Life Enrichment Director Name Role Phone Esperanza Gatica MD Unavailable [phone] Alfreda Ray PA-C Primary Care Provider + Alfreda Ray PA-C Unavailable +[phone] Katrin Orellana PA-C Unavailable +[phone] Shanna Vang PA-C Unavailable +[phone] Fransisco Eddy MD Unavailable +[phone] Esperanza Gatica MD Unavailable +270 Esperanza Gatica MD Unavailable +[phone] Katrin Orellana PA-C Unavailable +[phone] Cristina Hsieh [facility] Unavailable +- [phone] Alfreda Ray PA-C Unavailable +[phone] Alfreda Ray PA-C Unavailable +260 Cristina Hsieh [facility] Unavailable +[phone] Dakota Tatum MD Unavailable + [phone] Dakota Tatum MD Unavailable + [phone] Srinivas Marie DO Unavailable [phone] Reason for Visit * Reason Onset Date Comments Medication Update 05/11/2022 Encounter Details Date Type Department Care Team (Late st Contact Info) Description 05/11/2022 Telephone [facility] [address] [place] [address] Fransisco Eddy MD [address] [place] [address] Medication Update Social History Tobacco Use [...] Sex Assigned at Female 08/17/2018 7:56 AM DEPUTY CLERK Legal Sex Female 4:24 AM DEPUTY CLERK Gender Identity Female 08/17/2018 7:56 AM DEPUTY CLERK Sexual Orientation Straight 08/17/2018 7: 56 AM DEPUTY CLERK COVID-19 Exposure Response Date Recorded In the last 10 days, have yo u been in contact with someone who was confirmed or suspected to have Coronavirus/COVID-19? No / Unsure 05/06/2022 9:52 AM DEPUTY CLERK documented as of this encounter Miscellaneous Notes * Telephone Encounter - Lena Pina RN - 05/12/2022 8:03 AM CST RX's are pended for your signature. Lena Pina RN TY CLERK * Telephone Encounter - Fransisco Eddy MD - 05/11/2022 6:29 PM DEPUTY CLERK I am delighted to hear about the [...] these prescriptions for my review and signature. TY CLERK * Telephone Encounter - Lena Pina RN - 05/11/2022 12:53 PM DEPUTY CLERK Patient calling with follow up to 04/23 [...] Please advise. Thank you. Lena Pina RN TY CLERK * Telephone Encounter - HamptonViktoria - 05/11/2022 11:33 AM CST [facility] Call [facility] Phone Message May a detailed message be left on voicemail: yes; please call home # Reason for Call: Medication Question or concern regarding medication Prescription Clarification Name of Medication: Prednisone Prescribing Provider: Dr. Eddy Pharmacy: [facility] in [place], [place] What on the order needs clarification? [...] Taken: Message routed to: Other: CS Rheumatology TY CLERK documented in this encounter Plan of Treatment Upcoming Encounters Date Type Department Care Team (Late st Contact Info) Description 09/07/2024 10:00 AM CDT Office Visit [facility] [address] [place] [address] Fransisco Eddy MD [address] [place] [address] 88 [place], [place] 295135 09/18/2024 2:00 PM CDT Virtual Visit [facility] [address] [place] [address] Shanna Vang PA-C [address] [address] 03/29/2025 3:40 PM CDT Office Visit [address] [place] [address] Alfreda Ray PA-C [address] [place] [address] 970212 documented as of this encounter Visit Diagnoses Diagnosis Inflammatory arthritis- Primary Unspecified inflammatory polyarthropathy documented in this encounter Additional Health Concerns Assessment Noted Time PHQ-9 Depression Total Score: 4 09/05/19 22 10:39 AM CDT documented as of this encounter Care Teams Life Enrichment Director Relationship Specialty Start Date End Date Alfreda Ray PA-C [address] [place] [address] 219922 PCP - General Family Medicine 12/30/21 [place] [address] [place]B[address] GARCIA [address] Assigned PCP 09/29/20 07/31/22 Alfreda Ray PA-C [address] [place] [address] 686342 Referring Physician Family Medicine 12/31/21 Katrin Orellana PA-C [address] [place] [address] 255195 Physician Dumpling Machine Operator Dermatology 12/31/21 Shanna Vang PA-C [address] [place] [address] 212954 Assigned Cancer Care Provider 01/10/22 Fransisco Eddy MD [address] [place] [address] 69195455 Assigned Rheumatology Provider 05/09/22 [place] [address] LISB[address] GARCIA [address] Assigned Pain Medication Provider 06/29/22 09/04/22 [place] [address] LISB[address] GARCIA [address] Assigned PCP 08/15/22 08/28/22 Katrin Orellana PA-C [address] [place] [address] 587795 Assigned Surgical Provider 08/15/22 02/10/24 Cristina Hsieh [facility] [address] [facility] LISBETH HERNANDEZ [address] Pharmacist Pharmacist 09/07/22 Alfreda Ray PA-C [address] [place] [address] 023502 Assigned Pain Medication Provider 09/05/22 09/10/23 Alfreda Ray PA-C [address] [place] [address] 332262 Assigned PCP 08/29/22 Cristina Hsieh [facility] [address] [place] [address] Assigned MTM Pharmacist 09/26/22 Dakota Tatum MD [address] [place] [address] Cardiovascular Disease 03/25/23 Dakota Tatum MD [address] [place] [address]842 Assigned Heart and Vascular Provider 05/01/23 [place] [address] [place] , [address] [address] Assigned Musculoskeletal Provider 04/12/24 documented as of this encounter
--- OUTSIDE RECORDS SUMMARY | 2024-07-28 14:31 | XMS_ITS | Encounter Summary ---
Author Organization [facility] Address [address] [place] [address] Care Team Providers Care Weighing Station Operator Name Role Phone Esperanza Gatica MD Primary Care Provider + Esperanza Gatica MD Unavailable +[phone] Esperanza Gatica MD Unavailable +[phone] Esperanza Gatica MD Unavailable +091 Esperanza Gatica MD Unavailable +491 Esperanza Gatica MD Unavailable +654 Esperanza Gatica MD Unavailable +[phone] Jesús Orourke MD Unavailable Alfreda RayC Primary Care Provider + Alfreda Ray PA-C Unavailable + [phone] Katrin Orellana PA-C Unavailable +[phone] Shanna VangC Unavailable +[phone] Fransisco Eddy MD Unavailable +[phone] Esperanza Gatica MD Unavailable +[phone] Esperanza Gatica MD Unavailable +[phone] Katrin Orellana PA-C Unavailable Cristina Hsieh [facility] Unavailable +[phone] RayAlfreda PA-C Unavailable Ho Raymustapha Liu PA-C Unavailable +[phone] Cristina Hsieh [facility] Unavailable Dakota Tatum MD Unavailable Dakota Tatum MD Unavailable Srinivas Marie DO Unavailable [phone] Reason for Visit * Reason Onset Date Comments Medication Question 05/10/2018 Encounter Details Date Type Department Care Team (Late st Contact Info) Description 05/10/2018 MyC Medical Advice [address], [address] [place] [address] [place] [address] [place] [address] Medication Question Social History Tobacco [...] Sex Assigned at Female 08/17/2018 7:56 AM QUALITY CONTROL MICROBIOLOGY SUPERVISOR Legal Sex Female 4:24 AM QUALITY CONTROL MICROBIOLOGY SUPERVISOR Gender Identity Female 08/17/2018 7:56 AM QUALITY CONTROL MICROBIOLOGY SUPERVISOR Sexual Orientation Straight 08/17/2018 7: 56 AM QUALITY CONTROL MICROBIOLOGY SUPERVISOR documented as of this encounter Miscellaneous Notes * Telephone Encounter - Leigha Rinaldi RN - 05/10/2018 3:41 PM CST NATURAL GAS TREATING UNIT OPERATOR checked 05/10/2018: Does not reflect that patient received rx's. 04/15/2018 GABAPENTIN 100 MG CAPSULE 120.00 04/04/2018 TEMAZEPAM 7.5 MG CAPSULE 30.00 04/04/2018 TRAMADOL HCL 50 MG TABLET 180.00 Leigha Rinaldi RN ITY CONTROL MICROBIOLOGY SUPERVISOR documented in this encounter Plan of Treatment Upcoming Encounters Date Type Department Care Team (Late st Contact Info) Description 09/07/2024 10:00 AM CDT Office Visit [facility] [place] [address] [facility] 200 [place] [phone] Fransisco Eddy MD [address] [place] [address] 88 [place], [place] [address]995 09/18/2024 2:00 PM CDT Virtual Visit [facility] [address] [place] [address] 105 [place] [address] Shanna Vang, [place]obinson [address] [place] [address] 03/29/2025 3:40 PM CDT Office Visit [address] [phone] Alfreda Ray PA-C [address] [place] [address] [phone] documented as of this encounter Visit Diagnoses Not on filedocumented in this encounter Additional Health Concerns Infection Onset Date Last Indicated Resolved Time Rule Out COVID-19 05/08/2021 05/08/2021 05/09/2021 9:08 PM QUALITY CONTROL MICROBIOLOGY SUPERVISOR Assessment Noted Time PHQ-9 Depression Total Score: 1 04/05/20 18 7:16 AM CDT documented as of this encounter Care Teams Weighing Station Operator Relationship Specialty Start Date End Date Esperanza Gatica MD PCP - General Family Practice 10/13/11 12/29/21 [place] [address] [place] [address] PCP - Assigned PCP 12/05/17 08/23/18 Alfreda Ray PA-C [address] [place] [address] PCP - General Family Medicine 12/30/21 [place] [address] [place] [address] Assigned PCP 12/05/17 09/30/19 [place] [address] [place] [address] Assigned PCP 10/01/19 03/02/20 [place] [address] [place] [address] Assigned PCP 03/03/20 05/25/20 [place] [address] [place] [address] Assigned PCP 05/26/20 09/28/20 [place] [address] [place] [address] Assigned PCP 09/29/20 07/31/22 [place] [address] [place] [address] Assigned Musculoskeletal Provider 10/20/20 04/17/22 Alfreda Ray PA-C [address] [place] [address] Referring Physician Family Medicine 12/31/21 Katrin Orellana PA-C [address] [place] [address] Physician General Office Associate Dermatology 12/31/21 Shanna Vang PA-C [address] [address] Assigned Cancer Care Provider 01/10/22 Fransisco Eddy MD [address] [place] [address] Assigned Rheumatology Provider 05/09/22 [place] [address] [place] [address] Assigned Pain Medication Provider 06/29/22 09/04/22 [place] [address] [place] [address] Assigned PCP 08/15/22 08/28/22 Katrin Orellana PA-C [address] [place] [address]62 Assigned Surgical Provider 08/15/22 02/10/24 Cristina Hsieh [facility] [address] [facility] LISBETH HERNANDEZ [address] Pharmacist Pharmacist 09/07/22 Alfreda Ray PA-C [address] [place] [address] Assigned Pain Medication Provider 09/05/22 09/10/23 Alfreda Ray PA-C [address] [place] [address] Assigned PCP 08/29/22 Cristina Hsieh, [facility] [address] [place] [address] Assigned MTM Pharmacist 09/26/22 Dakota Tatum MD [address] [place] [address] Cardiovascular Disease 03/25/23 Dakota Tatum MD [address] [place] [address] Assigned Heart and Vascular Provider 05/01/23 [place] [address] [address], [address] [address] Assigned Musculoskeletal Provider 04/12/24 documented as of this encounter
--- OUTSIDE RECORDS SUMMARY | 2024-07-28 14:31 | XMS_ITS | Encounter Summary ---
Author Organization [facility] Address [address] [place] [address] Care Team Providers Care Fire Truck Driver Name Role Phone Esperanza Gatica MD Primary Care Provider + Esperanza Gatica MD Unavailable +[phone] Esperanza Gatica MD Unavailable +[phone] Esperanza Gatica MD Unavailable +[phone] Esperanza Gatica MD Unavailable +[phone] Esperanza Gatica MD Unavailable +[phone] Esperanza Gatica MD Unavailable +[phone] Jesús Orourke MD Unavailable Alfreda RayC Primary Care Provider + Alfreda Ray PA-C Unavailable + [phone] Katrin Orellana PA-C Unavailable [phone] Shanna VangC Unavailable +[phone] Fransisco Eddy MD Unavailable [phone] Esperanza Gatica MD Unavailable +[phone] Esperanza Gatica MD Unavailable +[phone] Katrin Orellana PA-C Unavailable Cristina Hsieh [facility] Unavailable RayAlfreda PA-C Unavailable +[phone] Cory Alfreda Liu PA-C Unavailable +[phone] Cristina Hsieh [facility] Unavailable +[phone] Dakota Tatum MD Unavailable [phone] Dakota Tatum MD Unavailable [phone] Srinivas Marie DO Unavailable [phone] Reason for Visit * Reason Onset Date Comments Medication Refill 07/27/2018 gabapentin (NE URONTIN) 100 MG capsule Encounter Details Date Type Department Care Team (Late st Contact Info) Description 07/26/[address], [address] [place] [address] [place] [address] [place] [address] Medication Refill (gabapentin (NEURONTIN) 100 [...] Sex Assigned at Female 08/17/2018 7:56 AM SALT MANAGER Legal Sex Female 4:24 AM SALT MANAGER Gender Identity Female 08/17/2018 7:56 AM SALT MANAGER Sexual Orientation Straight 08/17/2018 7: 56 AM SALT MANAGER documented as of this encounter Miscellaneous Notes * Telephone Encounter - WhitakerYohan - 07/26/2018 5:59 PM CST gabapentin (NEURONTIN) 100 MG capsule Last Written Prescription Date: 05/05/18 Last Fill Quantity: 180 CAPSULE, # refills: 0 Last Office Visit: 04/04/18 WITH TERA Future Office visit: Next 5 appointments (look out 90 days) Aug 19, 2018 11:00 AM SALT MANAGER PHYSICAL with Esperanza Gatica MD [facility] [address] [place] [address], [address] [facility] [phone] Routing refill request to provider for review/approval because: Drug not on the FMG, UMP or Health refill protocol or controlled substance MANAGER documented in this encounter Plan of Treatment Upcoming Encounters Date Type Department Care Team (Late st Contact Info) Description 09/07/2024 10:00 AM CDT Office Visit [facility] [address] [place] [phone] Fransisco Eddy MD [address] [place] [address] 5679[address] 09/18/2024 2:00 PM CDT [facility] [place] [address] [address] [place] [address] Shanna Vang, PARobinson [address] [place] [address] 03/29/2025 3:40 PM CDT Office Visit [address] [place] [phone] Alfreda Ray PA-C [address] [place] [address] 028452 documented as of this encounter Visit Diagnoses Diagnosis Primary osteoarthritis involving multiple joints documented in this encounter Additional Health Concerns Infection Onset Date Last Indicated Resolved Time Rule Out COVID-19 05/08/2021 05/08/2021 05/09/2021 9:08 PM SALT MANAGER Assessment Noted Time PHQ-9 Depression Total Score: 1 04/05/20 18 7:16 AM CDT documented as of this encounter Care Teams Fire Truck Driver Relationship Specialty Start Date End Date Esperanza Gatica MD PCP - General Family Practice 10/13/11 12/29/21 [place] [address] LISBETH GARCIA [address] PCP - Assigned PCP 12/05/17 08/23/18 Alfreda Ray PA-C [address] [place] [address] PCP - General Family Medicine 12/30/21 [place] [address] LIS[address] GARCIA [address] Assigned PCP 12/05/17 09/30/19 [place] [address] [address]ARCIA [address] Assigned PCP 10/01/19 03/02/20 [place] [address] [address] GARCIA 19947 Assigned PCP 03/03/20 05/25/20 [place] [address] L[address] GARCIA [address]402 Assigned PCP 05/26/20 09/28/20 [place] [address] L[address] GARCIA [address] Assigned PCP 09/29/20 07/31/22 [place] [address] [address] Assigned Musculoskeletal Provider 10/20/20 04/17/22 Alfreda Ray PA-C [address] [place] [address] 115452 Referring Physician Family Medicine 12/31/21 Katrin Orellana PA-C [address] [place] [address] Physician Side Door Man Dermatology 12/31/21 Shanna Vang PA-C [address] [place] [address] 476944 Assigned Cancer Care Provider 01/10/22 Fransisco Eddy MD [address] [place] [address] 118685 Assigned Rheumatology Provider 05/09/22 [place] [address] LISB[address] GARCIA [address] Assigned Pain Medication Provider 06/29/22 09/04/22 [place] [address] L[address] GARCIA [address] Assigned PCP 08/15/22 08/28/22 Katrin Orellana PA-C [address] [place] [address] Assigned Surgical Provider 08/15/22 02/10/24 Cristina Hsieh [facility] [address] [place] [address] LISBETH HERNANDEZ [address] Pharmacist Pharmacist 09/07/22 Alfreda Ray PA-C [address] [place] [address]9726 Assigned Pain Medication Provider 09/05/22 09/10/23 Alfreda Ray PA-C [address] [place] [address] Assigned PCP 08/29/22 Cristina Hsieh [facility] [address] [place] [address] Assigned MTM Pharmacist 09/26/22 Dakota Tatum MD [address] [place] [address] Cardiovascular Disease 03/25/23 Dakota Tatum MD [address] [place] [address]358 Assigned Heart and Vascular Provider 05/01/23 [place] [address] [address] Assigned Musculoskeletal Provider 04/12/24 documented as of this encounter
--- OUTSIDE RECORDS SUMMARY | 2024-07-28 14:31 | XMS_ITS | Encounter Summary ---
Author Organization [facility] Address [address] [place] [address] Care Team Providers Care Gold Leaf Layer Name Role Phone Esperanza Gatica MD Primary Care Provider + Esperanza Gatica MD Unavailable + Esperanza Gatica MD Unavailable + Esperanza Gatcia MD Unavailable + Esperanza Gatica MD Unavailable + Esperanza Gatica MD Unavailable + Jesús Orourke MD Unavailable Alfreda Ray-C Primary Care Provider + Alfreda Ray-C Unavailable + [phone] Katrin OrellanaC Unavailable [phone] Shanna Vang-C Unavailable +[phone] Fransisco Eddy MD Unavailable [phone] Espernaza Gatica MD Unavailable + Esperanza Gatica MD Unavailable + Katrin OrellanaC Unavailable +[phone] Cristina Hsieh [facility] Unavailable +[phone] Ray, Alfreda Liu PA-C Unavailable +[phone] Ray, Alfreda Liu PA-C Unavailable +[phone] Cristina Hsieh [facility] Unavailable [phone] Dakota Tatum MD Unavailable [phone] Dakota Tatum MD Unavailable [phone] Srinivas Marie DO Unavailable [phone] Reason for Visit * Reason Onset Date Comments Medication Refill 02/21/2019 atenolol (TENO RMIN) 25 MG tablet Encounter Details Date Type Department Care Team (Late st Contact Info) Description 02/18/[address], [address] [place] [address] [place] [address] [place] [address] Medication Refill (atenolol (TENORMIN) 25 [...] Sex Assigned at Female 08/17/2018 7:56 AM INVENTORY MANAGEMENT SPECIALIST Legal Sex Female 4:24 AM INVENTORY MANAGEMENT SPECIALIST Gender Identity Female 08/17/2018 7:56 AM INVENTORY MANAGEMENT SPECIALIST Sexual Orientation Straight 08/17/2018 7: 56 AM INVENTORY MANAGEMENT SPECIALIST documented as of this encounter Miscellaneous Notes * Telephone Encounter - Yamile Otero RN - 02/22/2019 9:45 AM CDT Images from the original note were not included. Provider filled on 02/21/2019 Vandana Otero RN Patient Care Adult Health Clinical Nurse Specialist [facility] [phone] * Telephone Encounter - Diya Stone - [...] CDT Office Visit with Esperanza Gatica MD [facility] [address] [place] [address], [facility] 100 [facility] [address] Beta-Blockers Protocol Passed - 02/18/2019 [...] Description 09/07/2024 10:00 AM CDT Office Visit [address] 200 [place] [address] Fransisco Eddy MD [address] [place] [address] 09/18/2024 2:00 PM CDT Virtual Visit [facility] [address] [facility] [address] [place] [address] Shanna Vang PA-C [address] [place] [address] 03/29/2025 3:40 PM CDT Office Visit [facility] [address] [place] [phone] Alfreda Ray PA-C [address] [place] [address] 255812 documented as of this encounter Visit Diagnoses Diagnosis HTN, goal below 140/90 Unspecified essential hypertension documented in this encounter Additional Health Concerns Infection Onset Date Last Indicated Resolved Time Rule Out COVID-19 05/08/2021 05/08/2021 05/09/2021 9:08 PM INVENTORY MANAGEMENT SPECIALIST Assessment Noted Time PHQ-9 Depression Total Score: 1 08/20/19 19 1:44 PM INVENTORY MANAGEMENT SPECIALIST documented as of this encounter Care Teams Gold Leaf Layer Relationship Specialty Start Date End Date Esperanza Gatica MD PCP - General Family Practice 10/13/11 12/29/21 Alfreda Ray PA-C [address] [place] [address] 982602 PCP - General Family Medicine 12/30/21 [place] [address] [place] [address] Assigned PCP 12/05/17 09/30/19 [place] [address] [place] [address] Assigned PCP 10/01/19 03/02/20 [place] [address] [place] [address] Assigned PCP 03/03/20 05/25/20 [place] [address] [place] [address] Assigned PCP 05/26/20 09/28/20 [place] [address] [place] [address] Assigned PCP 09/29/20 07/31/22 Jesú[place] [address] [place] [address] Assigned Musculoskeletal Provider 10/20/20 04/17/22 Alfreda Ray PA-C [address] [place] [address] 661842 Referring Physician Family Medicine 12/31/21 Katrin Orellana PA-C [address] [place] [address] [address] [place], [place] 0[address] Physician Pediatrician Dermatology 12/31/21 Shanna Vang PA-C [address] [place] [address] 209834 Assigned Cancer Care Provider 01/10/22 Fransisco Eddy MD [address] [place] [address] 88 [place] [address] Assigned Rheumatology Provider 05/09/22 [place] [address] [place] [address] Assigned Pain Medication Provider 06/29/22 09/04/22 [place] [address] [address] [place] VANIAJennifer [facility] [address] Assigned PCP 08/15/22 08/28/22 Katrin Orellana PA-C [address] [place] [address] Assigned Surgical Provider 08/15/22 02/10/24 Cristina Hsieh [facility] [address] [facility] LISBETH HERNANDEZ [address] Pharmacist Pharmacist 09/07/22 Alfreda Ray PA-C [address] [place] [address] Assigned Pain Medication Provider 09/05/22 09/10/23 Alfreda Ray PA-C [address] [place] [address] Assigned PCP 08/29/22 Cristina Hsieh [facility] [address] [address] Assigned MTM Pharmacist 09/26/22 Dakota Tatum MD 6 [place] [address] Cardiovascular Disease 03/25/23 Dakota Tatum MD [address] [place] [address] Assigned Heart and Vascular Provider 05/01/23 [place] [address] CE[address], [address] [address] Assigned Musculoskeletal Provider 04/12/24 documented as of this encounter
--- OUTSIDE RECORDS SUMMARY | 2024-07-28 14:31 | XMS_ITS | Encounter Summary ---
Author Organization [facility] Address [address] [place] [address] Care Team Providers Care Animal Treatment Investigator Name Role Phone Esperanza Gatica MD Primary Care Provider + Esperanza Gatica MD Unavailable +[phone] Esperanza Gatica MD Unavailable +[phone] Esperanza Gatica MD Unavailable +[phone] Esperanza Gatica MD Unavailable +[phone] Esperanza Gatica MD Unavailable +[phone] Esperanza Gatica MD Unavailable +[phone] Jesús Orourke MD Unavailable Alfreda RayC Primary Care Provider + Alfreda Ray PA-C Unavailable + [phone] Katrin Orellana PA-C Unavailable [phone] Shanna VangC Unavailable +[phone] Fransisco Eddy MD Unavailable [phone] Esperanza Gatica MD Unavailable +[phone] Esperanza Gatica MD Unavailable +[phone] Katrin Orellana PA-C Unavailable Cristina Hsieh [facility] Unavailable Cory Alfreda Liu PA-C Unavailable [phone] Alfreda Ray Alexa KING Unavailable +[phone] Cristina Hsieh [facility] Unavailable [phone] Dakota Tatum MD Unavailable Dakota Tatum MD Unavailable [phone] Srinivas Marie DO Unavailable [phone] Reason for Visit * Reason Comments Medication Refill simvastatin (ZOCOR) 20 MG tablet Encounter Details Date Type Department Care Team (Late st Contact Info) Description 08/14/[address], [address] [place] [address] Zenaida Coon APRN AIRCRAFT SHIPPING CHECKER [address] [place] [address] Medication Refill (simvastatin (ZOCOR) 20 [...] at Female 08/17/2018 7:56 AM QUALITY CONTROL INSPECTOR HEADING Legal Sex Female 4:24 AM QUALITY CONTROL INSPECTOR HEADING Gender Identity Female 08/17/2018 7:56 AM QUALITY CONTROL INSPECTOR HEADING Sexual Orientation Straight 08/17/2018 7: 56 AM QUALITY CONTROL INSPECTOR HEADING documented as of this encounter Miscellaneous Notes * Telephone Encounter - Leigha Rinaldi RN - 08/16/2018 12:26 PM CST Prescription approved per [facility] Refill Protocol. Leigha Rinaldi RN ITY CONTROL INSPECTOR HEADING * Telephone Encounter - Yohan Whitaker 08/15/2018 [...] 90 days) Aug 19, 2018 11:00 AM QUALITY CONTROL INSPECTOR HEADING PHYSICAL with Esperanza Gatica MD [facility] [address] [place] [address], [facility] 100 [facility] [address] 90 tablet 3 Sig: TAKE ONE [...] No positive test in past 12 months ITY CONTROL INSPECTOR HEADING documented in this encounter Plan of Treatment Upcoming Encounters Date Type Department Care Team (Late st Contact Info) Description 09/07/2024 10:00 AM CDT Office Visit [facility] [address] [address] Fransisco Eddy MD [address] [place] [address] 09/18/2024 2:00 PM CDT Virtual Visit [facility] [address] [place] [address] Shanna Vang PA-C [address] [place] [address] 03/29/2025 3:40 PM CDT Office Visit [address] [place] [address] Alfreda Ray PA-C [address] [place] [address] 864382 documented as of this encounter Visit Diagnoses Diagnosis Hyperlipidemia LDL goal <160 Other and unspecified hyperlipidemia documented in this encounter Additional Health Concerns Infection Onset Date Last Indicated Resolved Time Rule Out COVID-19 05/08/2021 05/08/2021 05/09/2021 9:08 PM QUALITY CONTROL INSPECTOR HEADING Assessment Noted Time PHQ-9 Depression Total Score: 1 04/05/20 18 7:16 AM CDT documented as of this encounter Care Teams Animal Treatment Investigator Relationship Specialty Start Date End Date Esperanza Gatica MD PCP - General Family Practice 10/13/11 12/29/21 [place] [address] LISB[address] GARCIA [address] PCP - Assigned PCP 12/05/17 08/23/18 Alfreda Ray PA-C [address] [place] [address] 020752 PCP - General Family Medicine 12/30/21 [place] [address] LIS[address] GARCIA [address] Assigned PCP 12/05/17 09/30/19 [place] [address] [address] GARCIA [address] Assigned PCP 10/01/19 03/02/20 [place] [address] LISB[address] GARCIA [address] Assigned PCP 03/03/20 05/25/20 [place] [address] LIS[address] GARCIA [address] Assigned PCP 05/26/20 09/28/20 [place] [address] LISBETH GARCIA [address] Assigned PCP 09/29/20 07/31/22 Jesú[place] [address] W[place] [address] [place] [address] Assigned Musculoskeletal Provider 10/20/20 04/17/22 Alfreda Ray PA-C [address] [place] [address] 795122 Referring Physician Family Medicine 12/31/21 Katrin Orellana PA-C [address] [place] [address] 425825 Physician Observatory Director Dermatology 12/31/21 Shanna Vang PA-C [address] [place] [address] Assigned Cancer Care Provider 01/10/22 Fransisco Eddy MD [address] [place] [address] Assigned Rheumatology Provider 05/09/22 [place] [address] [place] [address] Assigned Pain Medication Provider 06/29/22 09/04/22 [place] [address] [place] [address] Assigned PCP 08/15/22 08/28/22 Katrin Orellana PA-C [address] [place] [address] Assigned Surgical Provider 08/15/22 02/10/24 Cristina Hsieh [facility] [address] [place] [address] LISBETH HERNANDEZ [address] Pharmacist Pharmacist 09/07/22 Alfreda Ray PA-C [address] [place] [address] Assigned Pain Medication Provider 09/05/22 09/10/23 Alfreda Ray PA-C [address] [place] [address] Assigned PCP 08/29/22 Cristina Hsieh [facility] [address] [address] Assigned MTM Pharmacist 09/26/22 Dakota Tatum MD [address] [place] [address] Cardiovascular Disease 03/25/23 Dakota Tatum MD [address] [place] [address] Assigned Heart and Vascular Provider 05/01/23 [place] [address] CELE GASTELUM, [address] [address] Assigned Musculoskeletal Provider 04/12/24 documented as of this encounter
--- OUTSIDE RECORDS SUMMARY | 2024-07-28 14:31 | XMS_ITS | Continuity of Care Document ---
Author Organization [facility] Address [address] [place] [address] Phone Care Team Providers Care Market Research Worker Name Role Phone Sis Conte MD Unavailable Unavailable Advance Directives Directive Yes / No Effective Date File Name No Information Encounters Encounter Description Practice Location Reason(s) For Visit Diagnoses Date Provider Providers Copied on Encounter [facility], [address], [place], [address], [place] tel:[phone] [facility], No Information 2 Dg Alegre. [facility] [address], [place], [address], [place]. tel:[phone] Family History Family Member Type Diagnosis Age At Onset No Information Payers Payer name Insurance type Covered alliance party ID Authoriza tion(s) No Information Social History [...]
--- OUTSIDE RECORDS SUMMARY | 2024-07-28 14:31 | XMS_ITS | Encounter Summary ---
Author Organization [facility] Address [address] [place] [address] Care Team Providers Care Blade Aligner Name Role Phone Alfreda Ray PA-C Primary Care Provider + Alfreda Ray PA-C Unavailable [phone] Katrin Orellana PA-C Unavailable [phone] Shanna Vang-C Unavailable [phone] Fransisco Eddy MD Unavailable Cristina Hsieh [facility] Unavailable Alfreda Ray PA-C Unavailable [phone] Cristina Hsieh [facility] Unavailable Dakota Tatum MD Unavailable [phone] Dakota Tatum MD Unavailable [phone] Srinivas Marie DO Unavailable [phone] Reason for Visit * Reason Onset Date Comments Prior Auth - Medication 07/04/2024 Rinvoq P A and FPAP renewal Encounter Details Date Type Department Care Team (Late st Contact Info) Description 07/04/2024 [facility] [address] [address] Fransisco Eddy MD [address] [place] [address] Prior Auth - Medication (Rinvoq PA [...] re latives? Once a week 03/15/2024 Attends [employer] Services Not on file 03/15 Active Member of Clubs or Organizations Not on f ile 03/15/2024 Attends Club or Organization Meetings Not on anu e 03/15/2024 Marital Status Not on file 03/15/2024 PHQ-2 Answer Date Recorded PHQ-2 Score 0 03/16/2024 [facility] - Occupational [...] Sex Assigned at Female 08/17/2018 7:56 AM GARNETT FEEDER Legal Sex Female 4:24 AM GARNETT FEEDER Gender Identity Female 08/17/2018 7:56 AM GARNETT FEEDER Sexual Orientation Straight 08/17/2018 7: 56 AM GARNETT FEEDER documented as of this encounter Miscellaneous Notes * Telephone Encounter - Fartun Carrera - 07/25/2024 1:07 PM CST Images from the original note were not included. ETT FEEDER * Telephone Encounter - Fartun Carrera - 07/18/2024 3:15 PM CST Sadia called back and confirmed that she no longer takes Rinvoq. No further action needed at this time. ETT FEEDER * Telephone Encounter - Fartun Carrera - 07/18/2024 1:11 PM CST Saw a message in ERx that sadia is no longer taking Rinvoq. Left VM for sadia to confirm. ETT FEEDER * Telephone Encounter - Fartun Carrera - 07/04/2024 11:21 AM CST Images from the original note were not included. LOYDA INITIATED Medication: RINVOQ 15 MG PO TB24 [facility] Name: [facility] Date submitted: 07/04/2024 11:21 AM [facility] Phone: [facility] Fax: Household:2 Sent My Chart msg for updated income verification PA [id number] final approval Medication: RINVOQ 15 MG PO TB24 Insurance Company: Pharmacy Filling the Rx: [facility] [place], [place] - [address] Filling Pharmacy Phone: Filling Pharmacy Fax: Start Date: 07/04/2024 ETT FEEDER documented in this encounter Plan of Treatment Upcoming Encounters Date Type Department Care Team (Late st Contact Info) Description 09/07/2024 10:00 AM CDT Office Visit [facility] [address] [phone] Fransisco Eddy MD [address] [place] [address] 88 [place], [place] [address]925 09/18/2024 2:00 PM CDT Virtual Visit [facility] [place] [address] 105 [place] [phone] Shanna Vang PA-C [address] [place] [address] 03/29/2025 3:40 PM CDT Office Visit [address] [place] [phone] Alfreda Ray PA-C [address] [place] [address] 191212 documented as of this encounter Visit Diagnoses Not on filedocumented in this encounter Additional Health Concerns Assessment Noted Time PHQ-9 Depression Total Score: 5 03/09/20 23 10:57 AM CDT documented as of this encounter Care Teams Blade Aligner Relationship Specialty Start Date End Date Alfreda Ray PA-C [address] [place] [address] PCP - General Family Medicine 12/30/21 Alfreda Ray PA-C [address] [place] [address] Referring Physician Family Medicine 12/31/21 Katrin Orellana PA-C [address] [place] [address] 98 [place] [address] Physician Event Sales Assistant Dermatology 12/31/21 Shanna Vang PA-C [address] [place], [place] 568044 Assigned Cancer Care Provider 01/10/22 Fransisco Eddy MD [address] [place] [address] 395015 Assigned Rheumatology Provider 05/09/22 Cristina Hsieh [facility] [address] [facility] LISBETH HERNANDEZ [address] Pharmacist Pharmacist 09/07/22 Alfreda Ray PA-C [address] [place] [address] Assigned PCP 08/29/22 Cristina Hsieh [facility] 1600 [facility] 101 [place] [address] Assigned MTM Pharmacist 09/26/22 Dakota Tatum MD [address] [place] [address] Cardiovascular Disease 03/25/23 Dakota Tatum MD [address] [place] [address] 567065 Assigned Heart and Vascular Provider 05/01/23 [place] [address] [address], [facility] [address] [place] [address] Assigned Musculoskeletal Provider 04/12/24 documented as of this encounter
--- OUTSIDE RECORDS SUMMARY | 2024-07-28 14:31 | XMS_ITS | Encounter Summary ---
Author Organization [facility] [place] Address [address] [place] [address] Care Team Providers Care Lav Crewman Name Role Phone Esperanza Gatica MD Primary Care Provider + Esperanza Gatica MD Unavailable +[phone] Esperanza Gatica MD Unavailable +[phone] Esperanza Gatica MD Unavailable +[phone] Esperanza Gatica MD Unavailable +[phone] Esperanza Gatica MD Unavailable +[phone] Esperanza Gatica MD Unavailable +[phone] Jesús Orourke MD Unavailable Alfreda RayC Primary Care Provider + Alfreda Ray PA-C Unavailable + [phone] Katrin Orellana PA-C Unavailable [phone] Shanna VangC Unavailable +[phone] Fransisco Eddy MD Unavailable [phone] Esperanza Gatica MD Unavailable +[phone] Esperanza Gatica MD Unavailable +[phone] Katrin Orellana PA-C Unavailable [phone] Cristina Hsieh [facility] Unavailable RayAlfreda PA-C Unavailable Cory Alfreda Liu PA-C Unavailable +[phone] Cristina Hsieh [facility] Unavailable Dakota Tatum MD Unavailable Dakota Tatum MD Unavailable Srinivas Marie DO Unavailable [phone] Reason for Visit * Reason Onset Date Comments Medication Refill atenolol (TENO RMIN) 25 MG tablet Refill Request 08/14/2018 lisinopril-hydro chlorothiazide (PRINZIDE/ZESTORETIC) 10-12.5 MG per tablet Refill Request 08/14/2018 traZODone (DESYR EL) 50 MG tablet Encounter Details Date Type Department Care Team (Late st Contact Info) Description 08/14/[address], [facility] [address] [place] [address] [place] [address] [place] [address] Medication Refill (atenolol (TENORMIN) 25 [...] Sex Assigned at Female 08/17/2018 7:56 AM BUDGET CONSULTANT Legal Sex Female 4:24 AM BUDGET CONSULTANT Gender Identity Female 08/17/2018 7:56 AM BUDGET CONSULTANT Sexual Orientation Straight 08/17/2018 7: 56 AM BUDGET CONSULTANT documented as of this encounter Miscellaneous Notes * Telephone Encounter - Leigha Rinaldi RN - 08/16/2018 12:39 PM CST Prescription approved per [facility] Refill Protocol. Leigha Rinaldi RN ET CONSULTANT * Telephone Encounter - Yohan Whitaker [...] 90 days) Aug 19, 2018 11:00 AM BUDGET CONSULTANT PHYSICAL with Esperanza Gatica MD [facility] [address] [place] [address], [address] [address] 90 tablet 1 Sig: TAKE [...] 90 days) Aug 19, 2018 11:00 AM BUDGET CONSULTANT PHYSICAL with Esperanza Gatica MD [facility]) [facility], [address] [place] [address] 90 tablet 2 Sig: TAKE ONE [...] 90 days) Aug 19, 2018 11:00 AM BUDGET CONSULTANT PHYSICAL with Esperanza Gatica MD [facility]) [facility], [address] [facility] [address] 90 tablet 3 Sig: TAKE ONE TABLET [...] No positive test in past 12 months ET CONSULTANT documented in this encounter Plan of Treatment Upcoming Encounters Date Type Department Care Team (Late st Contact Info) Description 09/07/2024 10:00 AM CDT Office Visit [facility] [address] [phone] Fransisco Eddy MD [address] [place] [address] 891475 09/18/2024 2:00 PM CDT Virtual Visit [facility] [address] [place] [address] Shanna Vang, [facility] [address] [place] [address] 029564 03/29/2025 3:40 PM CDT Office Visit [facility] [address] [place] [address] [place] [phone] Alfreda Ray PA-C [address] [place] [address] 106302 documented as of this encounter Visit Diagnoses Diagnosis HTN, goal below 140/90 Unspecified essential hypertension HTN (hypertension), benign Essential hypertension, benign Insomnia, unspecified type documented in this encounter Additional Health Concerns Infection Onset Date Last Indicated Resolved Time Rule Out COVID-19 05/08/2021 05/08/2021 05/09/2021 9:08 PM BUDGET CONSULTANT Assessment Noted Time PHQ-9 Depression Total Score: 1 04/05/20 18 7:16 AM CDT documented as of this encounter Care Teams Lav Crewman Relationship Specialty Start Date End Date Esperanza Gatica MD PCP - General Family Practice 10/13/11 12/29/21 [place] [address] [address]ARCIA [address] PCP - Assigned PCP 12/05/17 08/23/18 Alfreda Ray PA-C [address] [place] [address] PCP - General Family Medicine 12/30/21 [place] [address] [address]ARCIA [address] Assigned PCP 12/05/17 09/30/19 [place] [address] [address] [address] Assigned PCP 10/01/19 03/02/20 [place] [address] [address] [address] Assigned PCP 03/03/20 05/25/20 [place] [address] [address]IA 31735 Assigned PCP 05/26/20 09/28/20 [place] [address] [address] 71206 Assigned PCP 09/29/20 07/31/22 Jesú[place] [address] [place] [address] [address] Assigned Musculoskeletal Provider 10/20/20 04/17/22 Alfreda Ray PA-C [address] [place] [address] Referring Physician Family Medicine 12/31/21 Katrin Orellana PA-C [address] [place] [address] Physician Intake Assessor Dermatology 12/31/21 Shanna Vang PA-C [address] [address] Assigned Cancer Care Provider 01/10/22 Fransisco Eddy MD [address] [place] [address] 18320 Assigned Rheumatology Provider 05/09/22 [place] [address] [address]ARCIA [address] Assigned Pain Medication Provider 06/29/22 09/04/22 [place] [address] [address]IA 98[address] Assigned PCP 08/15/22 08/28/22 Katrin Orellana PA-C [address] [place] [address]28 Assigned Surgical Provider 08/15/22 02/10/24 Cristina Hsieh [address] [facility] LISBETH HERNANDEZ [address] Pharmacist Pharmacist 09/07/22 Alfreda Ray PA-C [address] [place] [address] 625092 Assigned Pain Medication Provider 09/05/22 09/10/23 Alfreda Ray PA-C [address] [place] [address] 478532 Assigned PCP 08/29/22 Cristina Hsieh [facility] [address] [place] [address] Assigned MTM Pharmacist 09/26/22 Dakota Tatum MD [address] [place] [address] 38342 Cardiovascular Disease 03/25/23 Dakota Tatum MD [address] [place] [address] 598715 Assigned Heart and Vascular Provider 05/01/23 [place] [address] [place] [address] 907707 Assigned Musculoskeletal Provider 04/12/24 documented as of this encounter
--- OUTSIDE RECORDS SUMMARY | 2024-07-28 14:31 | XMS_ITS | Encounter Summary ---
Author Organization [facility] Address [address] [place] [address] 47664 Care Team Providers Care Copy Clerk Name Role Phone [place] Haley MD Primary Care Provider + [place] Haley MD Unavailable +[phone] [place] Halye MD Unavailable +[phone] [place] Haley MD Unavailable +[phone] [place] Haley MD Unavailable +[phone] [place] Haley MD Unavailable +[phone] [place] Haley MD Unavailable +[phone] Jesús Orourke MD Unavailable Alfreda RayC Primary Care Provider + Alfreda Ray PA-C Unavailable + [phone] Katrin Orellana PA-C Unavailable [phone] Shanna VangC Unavailable +[phone] Fransisco Eddy MD Unavailable [phone] [place] Haley MD Unavailable +[phone] [place] Haley MD Unavailable +[phone] Katrin Orellana PA-C Unavailable [phone] Cristina Hsieh [facility] Unavailable [place] Alfreda Liu PA-C Unavailable +[phone] [place] Raymustapha Liu PA-C Unavailable +[phone] Cristina Hsieh [facility] Unavailable [phone] Dakota Tatum MD Unavailable Dakota Tatum MD Unavailable [phone] Srinivas Marie DO Unavailable [phone] Reason for Visit * Reason Onset Date Comments Refill Request 06/16/2018 HYDROcodone-acet aminophen (NORCO) 5-325 MG per tablet Encounter Details Date Type Department Care Team (Late st Contact Info) Description 06/16/2018 MyC Refill [address], [address] [place] [address] [place] [address] [place] [address] Refill Request (HYDROcodone-acetamino phen ... [...] Sex Assigned at Female 08/17/2018 7:56 AM STEREOTYPER HELPER Legal Sex Female 4:24 AM STEREOTYPER HELPER Gender Identity Female 08/17/2018 7:56 AM STEREOTYPER HELPER Sexual Orientation Straight 08/17/2018 7: 56 AM STEREOTYPER HELPER documented as of this encounter Miscellaneous Notes * Telephone Encounter - Leigha Rinaldi RN - 06/17/2018 1:45 PM CST Duplicate. Leigha iRnaldi RN EOTYPER HELPER * Telephone Encounter - Diya Stone [...] Score(s): No flowsheet data found. ?? Last [facility] website verification: Done 03.16.18 Last Written Prescription Date: 03/24/18 Last Fill Quantity: 90, # refills: 0 Last Office Visit with [facility] primary care provider: 04/04/2018 Clinic visit frequency required: Q 3 months Future Office visit: Next 5 appointments (look out 90 days) Jul 05, 2018 10:00 AM STEREOTYPER HELPER PHYSICAL with [place] Haley MD [facility] [address] [place] [address] 100 [facility] [address] Controlled substance agreement on file: Yes: Date 03/08/15. Processing: Patient will scrap picker in clinic MANAGER TEST checked in past 3 months? No, route to RN EOTYPER HELPER documented in this encounter Plan of Treatment Upcoming Encounters Date Type Department Care Team (Late st Contact Info) Description 09/07/2024 10:00 AM CDT Office Visit [facility] Specialty [address] 200 [place] [address] Fransisco Eddy MD [address] [place] [address] 09/18/2024 2:00 PM CDT Virtual Visit [facility] Disorders [address] [place] [address] 105 [place] [address] Shanna Vang PA-C [address] [place] [address] 03/29/2025 3:40 PM CDT Office Visit [address] [place] [address] Alfreda Ray PA-C [address] [place] [address] 313012 documented as of this encounter Visit Diagnoses Diagnosis Primary osteoarthritis involving multiple joints documented in this encounter Additional Health Concerns Infection Onset Date Last Indicated Resolved Time Rule Out COVID-19 05/08/2021 05/08/2021 05/09/2021 9:08 PM STEREOTYPER HELPER Assessment Noted Time PHQ-9 Depression Total Score: 1 04/05/20 18 7:16 AM CDT documented as of this encounter Care Teams Copy Clerk Relationship Specialty Start Date End Date [place] Haley MD PCP - General Family Practice 10/13/11 12/29/21 [place] [address] L[address] GARCIA [address] PCP - Assigned PCP 12/05/17 08/23/18 Alfreda Ray PA-C [address] [place] [address] PCP - General Family Medicine 12/30/21 [place] [address] [address] GARCIA [address] Assigned PCP 12/05/17 09/30/19 [place] [address] [place] [address] Assigned PCP 10/01/19 03/02/20 [place] [address] [place] [address] Assigned PCP 03/03/20 05/25/20 [place] [address] [place] [address] Assigned PCP 05/26/20 09/28/20 [place] [address] [place] [address] Assigned PCP 09/29/20 07/31/22 [place] [address] [address] Assigned Musculoskeletal Provider 10/20/20 04/17/22 Alfreda Ray PA-C [address] [place] [address] 318842 Referring Physician Family Medicine 12/31/21 Katrin Orellana PA-C [address] [place] [address] Physician Numerical Control Machine Machinist Dermatology 12/31/21 Shanna Vang PA-C [address] [place] [address] [place] [address] Assigned Cancer Care Provider 01/10/22 Fransisco Eddy MD [address] [place] [address] 88 [place] [address] Assigned Rheumatology Provider 05/09/22 [place] [address] [place] [address] Assigned Pain Medication Provider 06/29/22 09/04/22 [place] [address] [place] [address] Assigned PCP 08/15/22 08/28/22 Katrin Orellana PA-C [address] [place] [address] 98 [place] [address] Assigned Surgical Provider 08/15/22 02/10/24 Cristina Hsieh [address] [facility] LISBETH HERNANDEZ [address] Pharmacist Pharmacist 09/07/22 Alfreda Ray PA-C [address] [place] [address]32 Assigned Pain Medication Provider 09/05/22 09/10/23 Alfreda Ray PA-C [address] [place] [address]46 Assigned PCP 08/29/22 Cristina Hsieh [facility] [address] [address] [place] [address] Assigned MTM Pharmacist 09/26/22 Dakota Tatum MD [address] [place] [address] Cardiovascular Disease 03/25/23 Dakota Tatum MD [address] [place] [address] 26438 Assigned Heart and Vascular Provider 05/01/23 [place] [address] [address], [facility] [address] [place] [address] Assigned Musculoskeletal Provider 04/12/24 documented as of this encounter
--- OUTSIDE RECORDS SUMMARY | 2024-07-28 14:31 | XMS_ITS | Encounter Summary ---
Author Organization [place] Address [address] [place] [address] Care Team Providers Care Business Continuity Specialist Name Role Phone Esperanza Gatica MD Primary Care Provider + Esperanza Gatica MD Unavailable + Esperanza Gatica MD Unavailable + Esperanza Gatica MD Unavailable + Esperanza Gatica MD Unavailable + Esperanza Gatica MD Unavailable + Jesús Orourke MD Unavailable Alfreda Ray-C Primary Care Provider + Alfreda Ray-C Unavailable + [phone] Katrin OrellanaC Unavailable [phone] Shanna Vang-C Unavailable +[phone] Fransisco Eddy MD Unavailable [phone] Esperanza Gatica MD Unavailable + Esperanza Gatica MD Unavailable + Katrin OrellanaC Unavailable +[phone] Cristina Hsieh [facility] Unavailable +[phone] Alfreda Ray PA-C Unavailable Alfreda Ray PA-C Unavailable Cristina Hsieh Martin [facility] Unavailable [phone] Dakota Tatum MD Unavailable [phone] Dakota Tatum MD Unavailable [phone] Srinivas Marie Unavailable [phone] Encounter Details Date Type Department Care Team (Late Contact Info) Description 01/25/2019 MyC Medical Advice [address] [address] Jena Howe RN Social History [...] Sex Assigned at Female 08/17/2018 7:56 AM VINE FRUIT FARMING SUPERVISOR Legal Sex Female 4:24 AM VINE FRUIT FARMING SUPERVISOR Gender Identity Female 08/17/2018 7:56 AM VINE FRUIT FARMING SUPERVISOR Sexual Orientation Straight 08/17/2018 7: 56 AM VINE FRUIT FARMING SUPERVISOR documented as of this encounter Plan of Treatment Upcoming Encounters Date Type Department Care Team (Late Contact Info) Description 09/07/2024 10:00 AM CDT Office Visit [facility] [address] 200 [place] [address] Fransisco Eddy MD [address] [place] [address] 88 [place] [address] 09/18/2024 2:00 PM CDT Virtual Visit [facility] Center for Bleeding and Clotting Disorders [address] [place] [address] 105 [place] [address] Shanna Vang PA-C [address] [place] [address] 03/29/2025 3:40 PM CDT Office Visit [address] [address] Alfreda Ray PA-C [address] [place] [address] documented as of this encounter Visit Diagnoses Not on filedocumented in this encounter Additional Health Concerns Infection Onset Date Last Indicated Resolved Time Rule Out COVID-19 05/08/2021 05/08/2021 05/09/2021 9:08 PM VINE FRUIT FARMING SUPERVISOR Assessment Noted Time PHQ-9 Depression Total Score: 1 08/20/19 1:44 PM VINE FRUIT FARMING SUPERVISOR documented as of this encounter Care Teams Business Continuity Specialist Relationship Specialty Start Date End Date Esperanza Gatica MD PCP - General Family Practice 10/13/11 12/29/21 Alfreda Ray PA-C [address] [place] [address] PCP - General Family Medicine 12/30/21 [place] [address] [address]ARCIA [address] Assigned PCP 12/05/17 09/30/19 [place] [address] [address] GARCIA [address] Assigned PCP 10/01/19 03/02/20 [place] [address] [address] GARCIA [address] Assigned PCP 03/03/20 05/25/20 [place] [address] [address] GARCIA [address] Assigned PCP 05/26/20 09/28/20 [place] [address] [address] GARCIA [address] Assigned PCP 09/29/20 07/31/22 Jesú[place] [address] [place] [facility] [place] [address] Assigned Musculoskeletal Provider 10/20/20 04/17/22 Alfreda Ray PA-C [address] [place] [address] 526272 Referring Physician Family Medicine 12/31/21 Katrin Orellana PA-C [address] [place] [address] Physician Hvac Installation Technician Dermatology 12/31/21 Shanna Vang PA-C [facility] . [address] [place] [address] Assigned Cancer Care Provider 01/10/22 Fransisco Eddy MD [address] [place] [address] 680985 Assigned Rheumatology Provider 05/09/22 [place] [address] [address] GARCIA [address] Assigned Pain Medication Provider 06/29/22 09/04/22 [place] [address] [place] [address] Assigned PCP 08/15/22 08/28/22 Katrin Orellana PA-C [address] [place] [address]68 Assigned Surgical Provider 08/15/22 02/10/24 Cristina Hsieh [facility] [address] [place] [address] LISBETH HERNANDEZ [address] Pharmacist Pharmacist 09/07/22 Alfreda Ray PA-C [address] [place] [address] Assigned Pain Medication Provider 09/05/22 09/10/23 Alfreda Ray PA-C [address] [place] [address] Assigned PCP 08/29/22 Cristina Hsieh [facility] [address] [place] [address] Assigned MTM Pharmacist 09/26/22 Dakota Tatum MD [address] [place] [address] 849855 Cardiovascular Disease 03/25/23 Dakota Tatum MD [address] [place] [address] 084415 Assigned Heart and Vascular Provider 05/01/23 [place] [address] [address], [address] [address] Assigned Musculoskeletal Provider 04/12/24 documented as of this encounter
--- OUTSIDE RECORDS SUMMARY | 2024-07-28 14:31 | XMS_ITS | Encounter Summary ---
Author Organization [place] Address [address] [place] [address] Care Team Providers Care Professor Of Rhetoric Name Role Phone Alfreda Ray PA-C Primary Care Provider + Alfreda Ray PA-C Unavailable [phone] Katrin Orellana PA-C Unavailable [phone] Shanna Vang-C Unavailable +[phone] Fransisco Eddy MD Unavailable [facility]sieh [facility] Unavailable [phone] Alfreda Ray PA-C Unavailable [phone] Cristina Hsieh [facility] Unavailable Dakota Tatum MD Unavailable [phone] Dakota Tatum MD Unavailable [phone] Srinivas Marie DO Unavailable [phone] Encounter Details Date Type Department Care Team (Late st Contact Info) Description 07/04/2024 [facility] [address] [address] Cele Santiago Social History Tobacco [...] re latives? Once a week 03/15/2024 Attends Shinto Services Not on file 03/15 Active Member of Clubs or Organizations Not on f ile 03/15/2024 Attends Club or Organization Meetings Not on anu e 03/15/2024 Marital Status Not on file 03/15/2024 PHQ-2 Answer Date Recorded PHQ-2 Score 0 03/16/2024 [facility] [facility] Occupat [facility] - Occupational Stress [...] in an overnight correction, or couch-surfing.) Yes 03/15/2024 Are you worried [...] Sex Assigned at Female 08/17/2018 7:56 AM PRACTICE ADVISOR Legal Sex Female 4:24 AM PRACTICE ADVISOR Gender Identity Female 08/17/2018 7:56 AM PRACTICE ADVISOR Sexual Orientation Straight 08/17/2018 7: 56 AM PRACTICE ADVISOR documented as of this encounter Plan of Treatment Upcoming Encounters Date Type Department Care Team (Late st Contact Info) Description 09/07/2024 10:00 AM CDT Office Visit [facility] [address] [phone] Fransisco Eddy MD [address] [place] [address] 88 [place], [place] 812835 09/18/2024 2:00 PM CDT Virtual Visit [facility] for Bleeding and Clot[facility] [address] 105 [place] [address] Shanna Vang PAFilemonC [address] [address] 03/29/2025 3:40 PM CDT Office Visit [address] [place] [phone] Alfreda Ray PA-C [address] [place] [address] 502232 documented as of this encounter Visit Diagnoses Not on filedocumented in this encounter Additional Health Concerns Assessment Noted Time PHQ-9 Depression Total Score: 5 03/09/20 23 10:57 AM CDT documented as of this encounter Care Teams Professor Of Rhetoric Relationship Specialty Start Date End Date Alfreda Ray PA-C [address] [place] [address] PCP - General Family Medicine 12/30/21 Alfreda Ray PA-C [address] [place] [address] Referring Physician Family Medicine 12/31/21 Katrin Orellana PA-C [address] [place] [address] 98 [place] [address] Physician Tape Deck Installer Dermatology 12/31/21 Shanna Vang PA-C [address] [place] [address] 479714 Assigned Cancer Care Provider 01/10/22 Fransisco Eddy MD [address] [place] [address] 453245 Assigned Rheumatology Provider 05/09/22 Cristina Hsieh [facility] [address] [place] [address] LISBETH HERNANDEZ [address] Pharmacist Pharmacist 09/07/22 Alfreda Ray PA-C [address] [place] [address] 29570 Assigned PCP 08/29/22 Cristina Hsieh [facility] [address] [facility] [place] [address] [place] [address] Assigned MTM Pharmacist 09/26/22 Dakota Tatum MD [address] [place] [address] Cardiovascular Disease 03/25/23 Dakota Tatum MD [address] [place] [address] Assigned Heart and Vascular Provider 05/01/23 [place] [address] [address], [facility] 300 [place] [address] Assigned Musculoskeletal Provider 04/12/24 documented as of this encounter
--- OUTSIDE RECORDS SUMMARY | 2024-07-28 14:32 | XMS_ITS | Encounter Summary ---
Author Organization [place] Address [address] [place] [address] Care Team Providers Care Dental Surgeon Name Role Phone Esperanza Gatica MD Primary Care Provider + Esperanza Gatica MD Unavailable + Esperanza Gatica MD Unavailable + Esperanza Gatica MD Unavailable + Esperanza Gatica MD Unavailable + Esperanza Gatica MD Unavailable + Jesús Orourke MD Unavailable Alfreda Ray-C Primary Care Provider + Alfreda Ray-C Unavailable + [phone] Katrin OrellanaC Unavailable +[phone] Shanna Vang-C Unavailable +[phone] Fransisco Eddy MD Unavailable +[phone] Esperanza Gatica MD Unavailable + Esperanza Gatica MD Unavailable + Katrin OrellanaC Unavailable +[phone] Cristina Hsieh [facility] Unavailable +60 Alfreda Ray PA-C Unavailable +[phone] Alfreda Ray PA-C Unavailable +[phone] Cristina Hsieh Martin [facility] Unavailable +[phone] LaDakota guerra MD Unavailable +[phone] LaDakota guerra MD Unavailable +[phone] Srinivas Marie DO Unavailable +[phone] Reason for Visit * Reason Onset Date Comments Prior Auth - Medication 04/28/2019 gabapent in (NEURONTIN) 100 MG capsule-Tiering Exception-Denied Encounter Details Date Type Department Care Team (Late st Contact Info) Description 04/28/[address], [address] [place] [address] [place] [address] [place] [address] Prior Auth - Medication (gabapentin [...] Sex Assigned at Female 08/17/2018 7:56 AM SIZE WORKER Legal Sex Female 4:24 AM SIZE WORKER Gender Identity Female 08/17/2018 7:56 AM SIZE WORKER Sexual Orientation Straight 08/17/2018 7: 56 AM SIZE WORKER documented as of this encounter Miscellaneous Notes * Telephone Encounter - Nidhi Russo - 05/02/2019 11:45 AM CST Images from the original note were not included. PRIOR AUTHORIZATION DENIED Medication: gabapentin (NEURONTIN) 100 MG capsule-Tiering Exception-Denied Denial Date: 04/28/2019 Denial Rational: Patient does not meet criteria for tiering exception WORKER * Telephone Encounter - RussoNidhi Elder - 05/02/2019 10:41 AM CST I spoke to Chance at [facility]. She states this request was denied. She will have the denial refaxed. WORKER * Telephone Encounter - Karan Nidih L - 04/28/2019 9:27 AM CST [place] Prior Authorization Team PA Initiation-Tiering exception. Completed via phone with Jamee at [facility] Medication: gabapentin (NEURONTIN) 100 MG capsule-Tiering Exception Insurance Company: [facility] - Pharmacy Filling the Rx: [facility] - [place], [place] - [address] [place] [address] Filling Pharmacy Filling Pharmacy Fax: Start Date: 04/28/2019 WORKER documented in this encounter Plan of Treatment Upcoming Encounters Date Type Department Care Team (Late st Contact Info) Description 09/07/2024 10:00 AM CDT Office Visit [facility] [address] [phone] Fransisco Eddy MD [address] [place] [address] 88 [place] [address] 09/18/2024 2:00 PM CDT Virtual [facility] [place] [address] 105 [place] [phone] Shanna Vang, PAFilemonC [address] [place] [address] 03/29/2025 3:40 PM CDT Office Visit [facility] [address] [place] [phone] Alfreda Ray PA-C [address] [place] [address] [phone] documented as of this encounter Visit Diagnoses Not on filedocumented in this encounter Additional Health Concerns Infection Onset Date Last Indicated Resolved Time Rule Out COVID-19 05/08/2021 05/08/2021 05/09/2021 9:08 PM SIZE WORKER Assessment Noted Time PHQ-9 Depression Total Score: 1 08/20/19 19 1:44 PM SIZE WORKER documented as of this encounter Care Teams Dental Surgeon Relationship Specialty Start Date End Date Esperanza Gatica MD PCP - General Family Practice 10/13/11 12/29/21 Alfreda Ray PA-C [address] [place] [address] PCP - General Family Medicine 12/30/21 [place] [address] LISBETH GARCIA [address] Assigned PCP 12/05/17 09/30/19 [place] [address] [address]ARCIA [address] Assigned PCP 10/01/19 03/02/20 [place] [address] [address] GARCIA [address] Assigned PCP 03/03/20 05/25/20 [place] [address] [place] [address] Assigned PCP 05/26/20 09/28/20 [place] [address] [place] [address] Assigned PCP 09/29/20 07/31/22 [place] [address] [place] [address] Assigned Musculoskeletal Provider 10/20/20 04/17/22 Alfreda Ray PA-C [address] [place] [address] [phone] Referring Physician Family Medicine 12/31/21 Katrin Orellana PA-C [address] [place] [address] [address] [place], [place] [address] Physician Power System Operator Dermatology 12/31/21 Shanna Vang PA-C [address] [place] [address] 189854 Assigned Cancer Care Provider 01/10/22 Fransisco Eddy MD [address] [place] [address] 915595 Assigned Rheumatology Provider 05/09/22 [place] [address] [place] [address] Assigned Pain Medication Provider 06/29/22 09/04/22 [place] [address] [place] [address] Assigned PCP 08/15/22 08/28/22 Katrin Orellana PA-C [address] [place] [address] [phone] Assigned Surgical Provider 08/15/22 02/10/24 Cristina Hsieh [facility] [address] [facility] L[place]BETH HERNANDEZ [address] Pharmacist Pharmacist 09/07/22 Alfreda Ray PA-C [address] [place] [address] [phone] Assigned Pain Medication Provider 09/05/22 09/10/23 Alfreda Rya PA-C [address] [place] [address] 766712 Assigned PCP 08/29/22 Cristina Hsieh [facility] [address] [address] Assigned MTM Pharmacist 09/26/22 Dakota Tatum MD [address] [place] [address] 785705 Cardiovascular Disease 03/25/23 Dakota Tatum MD [address] [place] [address] Assigned Heart and Vascular Provider 05/01/23 [place] [address] [address] [facility] [address] [place] [address] Assigned Musculoskeletal Provider 04/12/24 documented as of this encounter
--- OUTSIDE RECORDS SUMMARY | 2024-07-28 14:32 | XMS_ITS | Encounter Summary ---
Author Organization [place] Address [address] [place] [address] Care Team Providers Care Director Hair Name Role Phone Esperanza Gatica MD Primary Care Provider + Esperanza Gatica MD Unavailable + Esperanza Gatica MD Unavailable + Esperanza Gatica MD Unavailable + Esperanza Gatica MD Unavailable + Esperanza Gatica MD Unavailable + Jesús Orourke MD Unavailable Alfreda Ray-C Primary Care Provider + Alfreda Ray-C Unavailable + [phone] Katrin OrellanaC Unavailable +[phone] Shanna Vang-C Unavailable +[phone] Fransisco Eddy MD Unavailable +[phone] Esperanza Gatica MD Unavailable + Esperanza Gatica MD Unavailable + Katrin OrellanaC Unavailable +[phone] Cristina Hsieh [facility] Unavailable +60 Alfreda Ray PA-C Unavailable +[phone] Alfreda Ray PA-C Unavailable +[phone] Cristina Hsieh [facility] Unavailable +[phone] Dakota Tatum MD Unavailable [phone] Dakota Tatum MD Unavailable [phone] Srinivas Marie DO Unavailable Reason for Visit * Reason Onset Date Comments Refill Request 08/01/2019 Encounter Details Date Type Department Care Team (Late st Contact Info) Description 08/01/2019 MyC Refill [address], [address] [place] [address] [place] [address] [place] [address] Refill Request Social History Tobacco [...] Sex Assigned at Female 08/17/2018 7:56 AM HUSBANDRY TECHNICIAN Legal Sex Female 4:24 AM HUSBANDRY TECHNICIAN Gender Identity Female 08/17/2018 7:56 AM HUSBANDRY TECHNICIAN Sexual Orientation Straight 08/17/2018 7: 56 AM HUSBANDRY TECHNICIAN documented as of this encounter Miscellaneous [...] CDT PHYSICAL with Esperanza Gatica MD [facility], [address] [facility] [address] Requested Prescriptions Pending Prescriptions Disp [...] for review/approval because: Drug not on the [facility] refill protocol ANDRY TECHNICIAN documented in this encounter Plan of Treatment Upcoming Encounters Date Type Department Care Team ([facility] st Contact Info) Description 09/07/2024 10:00 AM CDT Office Visit [facility] [address] [phone] Fransisco Eddy MD [address] [place] [address] 88 [place] [address] 09/18/2024 2:00 PM CDT Virtual Visit [facility] [address] [place] [address] Shanna Vang, PA-C [address] [address] 03/29/2025 3:40 PM CDT Office Visit [address] [place] [phone] Alfreda Ray PA-C [address] [place] [address] [phone] documented as of this encounter Visit Diagnoses Diagnosis Insomnia, unspecified type Primary osteoarthritis involving multiple joints documented in this encounter Additional Health Concerns Infection Onset Date Last Indicated Resolved Time Rule Out COVID-19 05/08/2021 05/08/2021 05/09/2021 9:08 PM HUSBANDRY TECHNICIAN Assessment Noted Time PHQ-9 Depression Total Score: 1 08/20/19 19 1:44 PM HUSBANDRY TECHNICIAN documented as of this encounter Care Teams Director Hair Relationship Specialty Start Date End Date Esperanza Gatica MD PCP - General Family Practice 10/13/11 12/29/21 Alfreda Ray PA-C [address] [place] [address] PCP - General Family Medicine 12/30/21 [place] [address] [address] GARCIA [address] Assigned PCP 12/05/17 09/30/19 [place] [address] [address] GARCIA [address] Assigned PCP 10/01/19 03/02/20 [place] [address] [address] GARCIA [address] Assigned PCP 03/03/20 05/25/20 [place] [address] [address] GARCIA [address] Assigned PCP 05/26/20 09/28/20 [place] [address] L[address] GARCIA [address] Assigned PCP 09/29/20 07/31/22 [place] [address] [address] Assigned Musculoskeletal Provider 10/20/20 04/17/22 Alfreda Ray PA-C [address] [place] [address] [phone] Referring Physician Family Medicine 12/31/21 Katrin Orellana PA-C [address] [place] [address] 312635 Physician Retail And Promotions Coordinator Dermatology 12/31/21 Shanna Vang PA-C [address] [place] [address] 258134 Assigned Cancer Care Provider 01/10/22 Fransisco Eddy MD [address] [place] [address] [phone] Assigned Rheumatology Provider 05/09/22 [place] [address] [address] GARCIA [address] Assigned Pain Medication Provider 06/29/22 09/04/22 [place] [address] [address] GARCIA [address] Assigned PCP 08/15/22 08/28/22 Katrin Orellana PA-C [address] [place] [address] [phone] Assigned Surgical Provider 08/15/22 02/10/24 Cristina Hsieh [facility] [address] [facility] L[place]BETH HERNANDEZ [address] Pharmacist Pharmacist 09/07/22 Alfreda Ray PA-C [address] [place] [address] 779032 Assigned Pain Medication Provider 09/05/22 09/10/23 Alfreda Ray PA-C [address] [place] [address] 865622 Assigned PCP 08/29/22 Cristina Hsieh [facility] [address] [place] [address] Assigned MTM Pharmacist 09/26/22 Dakota Tatum MD [address] [place] [address] Cardiovascular Disease 03/25/23 Dakota Tatum MD [address] [place] [address] Assigned Heart and Vascular Provider 05/01/23 [place] [address] [address] Assigned Musculoskeletal Provider 04/12/24 documented as of this encounter
--- OUTSIDE RECORDS SUMMARY | 2024-07-28 14:32 | XMS_ITS | Encounter Summary ---
Author Organization [place] Address [address] [place] [address] Care Team Providers Care Loan Specialist Name Role Phone Esperanza Gatica MD Unavailable + Alfreda Ray PA-C Primary Care Provider + Alfreda Ray PA-C Unavailable + Katrin Orellana PA-C Unavailable +[phone] Shanna Vang PA-C Unavailable +[phone] Fransisco Eddy MD Unavailable +[phone] Esperanza Gatica MD Unavailable + Esperanza Gatica MD Unavailable + Katrin Orellana PA-C Unavailable +1-30 Cristina Hsieh [facility] Unavailable +[phone] Alfreda Ray PA-C Unavailable +[phone] Alfreda Ray PA-C Unavailable +260 Cristina Hsieh [facility] Unavailable +[phone] Dakota Tatum MD Unavailable + Dakota Tatum MD Unavailable + [phone] Srinivas Marie DO Unavailable +[phone] Encounter Details Date Type Department Care Team (Late Contact Info) Description 07/27/2022 MyC Medical Advice [address] [phone] Margie Santiago Social History Tobacco Use Types [...] Sex Assigned at Female 08/17/2018 7:56 AM DECK HAND Legal Sex Female 4:24 AM DECK HAND Gender Identity Female 08/17/2018 7:56 AM DECK HAND Sexual Orientation Straight 08/17/2018 7: 56 AM DECK HAND documented as of this encounter Plan of Treatment Upcoming Encounters Date Type Department Care Team (Late Contact Info) Description 09/07/2024 10:00 AM CDT Office Visit [facility] [address] [phone] Fransisco Eddy MD [address] [place] [address] 094225 09/18/2024 2:00 PM CDT Virtual Visit [facility] [address] [place] [phone] Shanna Vang PA-C [address] [address] 03/29/2025 3:40 PM CDT Office Visit [address] [phone] Alfreda Ray PA-C [address] [place] [address] 278052 documented as of this encounter Visit Diagnoses Not on filedocumented in this encounter Additional Health Concerns Assessment Noted Time PHQ-9 Depression Total Score: 4 09/05/19 22 10:39 AM CDT documented as of this encounter Care Teams Loan Specialist Relationship Specialty Start Date End Date Alfreda Ray PA-C [address] [place] [address] PCP - General Family Medicine 12/30/21 [place] [address] [place] [address] Assigned PCP 09/29/20 07/31/22 Alfreda Ray PA-C [address] [place] [address] Referring Physician Family Medicine 12/31/21 Katrin Orellana PA-C [address] [place] [address] 98 [place], [place] 534455 Physician Branch Or Department Chief Librarian Dermatology 12/31/21 Shanna Vang PA-C [address] [place], [place] 768084 Assigned Cancer Care Provider 01/10/22 Fransisco Eddy MD [address] [place] [address] 215875 Assigned Rheumatology Provider 05/09/22 [place] [address] [place] [address] Assigned Pain Medication Provider 06/29/22 09/04/22 [place] [address] [place] [address] Assigned PCP 08/15/22 08/28/22 Katrin Orellana PA-C [address] [place] [address] 497975 Assigned Surgical Provider 08/15/22 02/10/24 Cristina Hsieh [facility] [address] [facility] LISBETH HERNANDEZ [address] Pharmacist Pharmacist 09/07/22 Alfreda Ray PA-C [address] [place] [address] 945002 Assigned Pain Medication Provider 09/05/22 09/10/23 Alfreda Ray PA-C [address] [place] [address] 092432 Assigned PCP 08/29/22 Cristina Hsieh [facility] [address] [place] [address] [phone] Assigned MTM Pharmacist 09/26/22 Dakota Tatum MD [address] [place] [address] 419555 Cardiovascular Disease 03/25/23 Dakota Tatum MD [address] [place] [address] Assigned Heart and Vascular Provider 05/01/23 [place] [address] [address], [address] 914[address] Assigned Musculoskeletal Provider 04/12/24 documented as of this encounter
--- OUTSIDE RECORDS SUMMARY | 2024-07-28 14:32 | XMS_ITS | Encounter Summary ---
Author Organization [place] Address [address] [place] [address] Care Team Providers Care Department Traffic Freight Router Name Role Phone Kelly Haley MD Primary Care Provider + Kelly Haley MD Unavailable + Kelly Haley MD Unavailable + Kelly Haley MD Unavailable + Kelly Haley MD Unavailable + Kelly Haley MD Unavailable + Jesús Orourke MD Unavailable Alfreda Ray-C Primary Care Provider + Alfreda Ray-C Unavailable + [phone] Katrin OrellanaC Unavailable +[phone] Shanna Vang-C Unavailable +[phone] Fransisco Eddy MD Unavailable [phone] Kelly Haley MD Unavailable + Kelly Haley MD Unavailable + Katrin OrellanaC Unavailable +1-38 Cristina Hsieh [facility] Unavailable +60 Ray, Alfreda Liu PA-C Unavailable +[phone] Cory Alfreda Liu PA-C Unavailable +[phone] Cristina Hsieh [facility] Unavailable +[phone] Dakota Tatum MD Unavailable +[phone] Dakota Tatum MD Unavailable +[phone] Srinivas Marie DO Unavailable [phone] Reason for Visit * Reason Onset Date Comments Medication Refill 05/01/2019 traMADol (ULTR AM) 50 MG tablet Encounter Details Date Type Department Care Team (Late st Contact Info) Description 04/30/[address], [address] [place] [address] [place] [address] [place] [address] Medication Refill (traMADol (ULTRAM) 50 [...] Assigned at Female 08/17/2018 7:56 AM SUPERVISOR [employer]TO[employer]ORAT[employer] Legal Sex Female 4:24 AM SUPERVISOR [employer]ORAT[employer] Gender Identity Female 08/17/2018 7:56 AM SUPERVISOR [employer] Sexual Orientation Straight 08/17/2018 7: 56 AM SUPERVISOR [employer]ORAT[employer] documented as of this encounter Miscellaneous Notes * Telephone Encounter - Leigha Rinaldi RN - 05/02/2019 8:40 AM CST Images from the original note were not included. GRILL COOK checked 05/02/2019: Leigha Rinaldi RN [employer] * Telephone Encounter - Diya Stone - [...] Score(s): No flowsheet data found. ?? Last [facility] website verification: Done 03.16.18 Last Written Prescription Date: 04/05/19 Last Fill Quantity: 90, # refills: 0 THE MOST RECENT OFFICE VISIT MUST BE WITHIN THE PAST 3 MONTHS. AT LEAST ONE FACE TO FACE VISIT MUSTOCCUR EVERY 6 MONTHS. ADDITIONAL VISITS CAN BE VIRTUAL. (THIS STATEMENT SHOULD BE DELETED.) Last Office Visit with [facility] primary care provider: 02/21/2019 Future Office visit: [...] OXY13, PPX13, BUP13 Processing: Fax Rx to [facility] pharmacy [email or web address] GRILL COOK checked in past 3 months? No, route to RN 06/17/18 [employer] documented in this encounter Plan of Treatment Upcoming Encounters Date Type Department Care Team (Late st Contact Info) Description 09/07/2024 10:00 AM CDT Office Visit [facility] [place] [address] [place] [address] 200 [place] [phone] Fransisco Eddy MD [address] [place] [address] 88 [place] [address] 09/18/2024 2:00 PM CDT Virtual Visit [facility] [address] [place] [address] 105 [place] [phone] Shanna Vang PA-C [address] [place] [address] 032274 03/29/2025 3:40 PM CDT Office Visit [address] [phone] Alfreda Ray PA-C [address] [place] [address] documented as of this encounter Visit Diagnoses Diagnosis Primary osteoarthritis involving multiple joints documented in this encounter Additional Health Concerns Infection Onset Date Last Indicated Resolved Time Rule Out COVID-19 05/08/2021 05/08/2021 05/09/2021 9:08 PM SUPERVISOR [employer]AT[employer] Assessment Noted Time PHQ-9 Depression Total Score: 1 08/20/19 19 1:44 PM SUPERVISOR [employer] documented as of this encounter Care Teams Department Traffic Freight Router Relationship Specialty Start Date End Date Kelly Haley MD PCP - General Family Practice 10/13/11 12/29/21 Alfreda Ray PA-C [address] [place] [address] PCP - General Family Medicine 12/30/21 [place] [address] [place] [address] Assigned PCP 12/05/17 09/30/19 [place] [address] [place] [address] Assigned PCP 10/01/19 03/02/20 [place] [address] [place] [address] Assigned PCP 03/03/20 05/25/20 [place] [address] [place] [address] Assigned PCP 05/26/20 09/28/20 [place] [address] [place] [address] Assigned PCP 09/29/20 07/31/22 [place] [address] [place] [place] [address] Assigned Musculoskeletal Provider 10/20/20 04/17/22 Alfreda Ray PA-C [address] [place] [address] 549462 Referring Physician Family Medicine 12/31/21 Katrin Orellana PA-C [address] [address] Physician Cargo Service Supervisor Dermatology 12/31/21 Shanna Vang PA-C [address] [place] [address] Assigned Cancer Care Provider 01/10/22 Fransisco Eddy MD [address] [place] [address] 88 [place] [address] Assigned Rheumatology Provider 05/09/22 [place] [address] [place] [address] Assigned Pain Medication Provider 06/29/22 09/04/22 [place] [address] [place] [address] Assigned PCP 08/15/22 08/28/22 Katrin Orellana PA-C [address] [place] [address] 98 [place], [place] [phone] Assigned Surgical Provider 08/15/22 02/10/24 Cristina Hsieh [facility] [address] [facility] LISBETH HERNANDEZ [address] Pharmacist Pharmacist 09/07/22 Alfreda Ray PA-C [address] [place] [address] [phone] Assigned Pain Medication Provider 09/05/22 09/10/23 Alfreda Ray PA-C [address] [place] [address] Assigned PCP 08/29/22 Cristina Hsieh, [facility] [address] [facility] 101 [place] [address] Assigned MTM Pharmacist 09/26/22 Dakota Tatum MD [address] [place] [address] 875395 Cardiovascular Disease 03/25/23 Dakota Tatum MD [address] [place] [address] [phone] Assigned Heart and Vascular Provider 05/01/23 [place] [address] [address], [facility] [address] [place] [address] Assigned Musculoskeletal Provider 04/12/24 documented as of this encounter
--- OUTSIDE RECORDS SUMMARY | 2024-07-28 14:32 | XMS_ITS | Encounter Summary ---
Author Organization [facility] Address [address] [place] [address] Care Team Providers Care Restaurant Kitchen And Service Manager Name Role Phone Esperanza Gatica MD Primary Care Provider + Esperanza Gatica MD Unavailable +[phone] Esperanza Gatica MD Unavailable +[phone] Esperanza Gatica MD Unavailable +[phone] Esperanza Gatica MD Unavailable +[phone] Esperanza Gatica MD Unavailable +[phone] Esperanza Gatica MD Unavailable +[phone] Jesús Orourke MD Unavailable Alfreda RayC Primary Care Provider + Alfreda Ray PA-C Unavailable + [phone] Katrin Orellana PA-C Unavailable +[phone] Shanna VangC Unavailable +[phone] Fransisco Eddy MD Unavailable +[phone] Esperanza Gatica MD Unavailable +[phone] Esperanza Gatica MD Unavailable +[phone] Katrin Orellana PA-C Unavailable Cristina Hsieh [facility] Unavailable Alfreda Ray PA-C Unavailable Cory Alfreda Liu PA-C Unavailable Cristina Hsieh [facility] Unavailable Dakota Tatum MD Unavailable Dakota Tatum MD Unavailable [phone] Srinivas Marie DO Unavailable +[phone] Encounter Details Date Type Department Care Team (Late st Contact Info) Description 06/22/2012 MyC Medical Advice [address], [facility] [address] [place] [address] [facility] Social History Tobacco Use Types Packs/Day Years Used Date Smoking Tobacco: Former Cigarettes Q uit: 06/21/1973 Smokeless Tobacco: Former Alcohol Use Standard Drinks/Week Comments Yes 0 (1 standard drink = 0.6 oz pur e alcohol) rarely Comments No Sex and Gender Information Value Date Recorded Sex Assigned at Female 08/17/2018 7:56 AM EMERGENCY VETERINARY ASSISTANT Legal Sex Female 4:24 AM EMERGENCY VETERINARY ASSISTANT Gender Identity Female 08/17/2018 7:56 AM EMERGENCY VETERINARY ASSISTANT Sexual Orientation Straight 08/17/2018 7: 56 AM EMERGENCY VETERINARY ASSISTANT documented as of this encounter Plan of Treatment Upcoming Encounters Date Type Department Care Team (Late Contact Info) Description 09/07/2024 10:00 AM CDT Office Visit [facility] [address] [address] Fransisco Eddy MD [address] [place] [address] 09/18/2024 2:00 PM CDT Virtual Visit [facility] [place] [address] Shanna Vang PA-C [facility] [address] 03/29/2025 3:40 PM CDT Office Visit [address] [address] Alfreda Ray PA-C [address] [place] [address] documented as of this encounter Visit Diagnoses Not on filedocumented in this encounter Additional Health Concerns Infection Onset Date Last Indicated Resolved Time Rule Out COVID-19 05/08/2021 05/08/2021 05/09/2021 9:08 PM EMERGENCY VETERINARY ASSISTANT documented as of this encounter Care Teams Restaurant Kitchen And Service Manager Relationship Specialty Start Date End Date Esperanza Gatica MD PCP - General Family Practice 10/13/11 12/29/21 [place] [address] LISBETH GARCIA [address] PCP - Assigned PCP 12/05/17 08/23/18 Alfreda Ray PA-C [address] [place] [address] PCP - General Family Medicine 12/30/21 [place] [address] LISB[address] GARCIA [address] Assigned PCP 12/05/17 09/30/19 [place] [address] [address] GARCIA [address] Assigned PCP 10/01/19 03/02/20 [place] [address] [place] [address] Assigned PCP 03/03/20 05/25/20 [place] [address] [place] [address] Assigned PCP 05/26/20 09/28/20 [place] [address] [place] [id number] Assigned PCP 09/29/20 07/31/22 [place] [address] [place] [address] Assigned Musculoskeletal Provider 10/20/20 04/17/22 Alfreda Ray PA-C [address] [place] [address] 475692 Referring Physician Family Medicine 12/31/21 Katrin Orellana PA-C [address] [place] [address] 585155 Physician Repairer Cylinder Heads Dermatology 12/31/21 Shanna Vang PA-C [address] [place] [address] 347274 Assigned Cancer Care Provider 01/10/22 Fransisco Eddy MD [address] [place] [address] 557355 Assigned Rheumatology Provider 05/09/22 [place] [address] [place] [address] Assigned Pain Medication Provider 06/29/22 09/04/22 [place] [address] [place] [address] Assigned PCP 08/15/22 08/28/22 Katrin Orellana PA-C [address] [place] [address] 98 [place], [place] 482615 Assigned Surgical Provider 08/15/22 02/10/24 Cristina Hsieh [facility] [address] [facility] [place]DEZ [address] Pharmacist Pharmacist 09/07/22 Alfreda Ray PA-C [address] [place] [address] 695942 Assigned Pain Medication Provider 09/05/22 09/10/23 Alfreda Ray PA-C [address] [place] [address] Assigned PCP 08/29/22 Cristina Hsieh [facility] [address] [phone] Assigned MTM Pharmacist 09/26/22 Dakota Tatum MD [address] [place] [address] Cardiovascular Disease 03/25/23 Dakota Tatum MD [address] [place], [place] 323605 Assigned Heart and Vascular Provider 05/01/23 [place] [address] CELE GASTELUM, [address] 688727 Assigned Musculoskeletal Provider 04/12/24 documented as of this encounter
--- OUTSIDE RECORDS SUMMARY | 2024-07-28 14:32 | XMS_ITS | Encounter Summary ---
Author Organization [facility] [place] Address [address] [place] [address] Care Team Providers Care Virtual Assistant For Advertisers Name Role Phone Esperanza Gatica MD Primary Care Provider + Esperanza Gatica MD Unavailable + Esperanza Gatica MD Unavailable + Esperanza Gatica MD Unavailable + Esperanza Gatica MD Unavailable + Esperanza Gatica MD Unavailable + Jesús Orourke MD Unavailable Alfreda Ray-C Primary Care Provider + Alfreda Ray-C Unavailable + [phone] Katrin OrellanaC Unavailable +[phone] Shanna Vang-C Unavailable +[phone] Fransisco Eddy MD Unavailable +[phone] Esperanza Gatica MD Unavailable + Esperanza Gatica MD Unavailable + Katrin OrellanaC Unavailable +[phone] Cristina Hsieh [facility] Unavailable +[phone] Alfreda Ray PA-C Unavailable Cory Alfreda Liu PA-C Unavailable Cristina Hsieh Martin [facility] Unavailable +[phone] DeeptiDakota MD Unavailable [phone] NicholDakota yousif MD Unavailable [phone] Srinivas Marie Unavailable [phone] Encounter Details Date Type Department Care Team (Late st Contact Info) Description 07/03/2019 MyC Medical Advice [address], [address] [place] [address] [place] [address] [place] [address] Social History Tobacco Use Types [...] Sex Assigned at Female 08/17/2018 7:56 AM TEST BAKER Legal Sex Female 4:24 AM TEST BAKER Gender Identity Female 08/17/2018 7:56 AM TEST BAKER Sexual Orientation Straight 08/17/2018 7: 56 AM TEST BAKER documented as of this encounter Plan of Treatment Upcoming Encounters Date Type Department Care Team (Late st Contact Info) Description 09/07/2024 10:00 AM CDT Office Visit [facility] [address] [place] [address] Fransisco Eddy MD [address] [place] [address] 09/18/2024 2:00 PM CDT Virtual Visit [facility] [address] [place] [address] 105 [place] [address] Shanna Vang PA-C [address] [place] [address] 03/29/2025 3:40 PM CDT Office Visit [address] [phone] Alfreda Ray PA-C [address] [place] [address] 793092 documented as of this encounter Visit Diagnoses Not on filedocumented in this encounter Additional Health Concerns Infection Onset Date Last Indicated Resolved Time Rule Out COVID-19 05/08/2021 05/08/2021 05/09/2021 9:08 PM TEST BAKER Assessment Noted Time PHQ-9 Depression Total Score: 1 08/20/19 19 1:44 PM TEST BAKER documented as of this encounter Care Teams Virtual Assistant For Advertisers Relationship Specialty Start Date End Date Esperanza Gatica MD PCP - General Family Practice 10/13/11 12/29/21 Alfreda Ray PA-C [address] [place] [address] [id number] PCP - General Family Medicine 12/30/21 [place] [address] LISBETH GARCIA [address] Assigned PCP 12/05/17 09/30/19 [place] [address] LISB[address] GARCIA [address] Assigned PCP 10/01/19 03/02/20 [place] [address] [place] [address] Assigned PCP 03/03/20 05/25/20 [place] [address] [place] [address] Assigned PCP 05/26/20 09/28/20 [place] [address] [place] [address] Assigned PCP 09/29/20 07/31/22 Jesú[place] [address] [place] [address] Assigned Musculoskeletal Provider 10/20/20 04/17/22 Alfreda Ray PA-C [address] [place] [address] [id number] Referring Physician Family Medicine 12/31/21 Katrin Orellana PA-C [address] [place] [address] Light Inspector Dermatology 12/31/21 Shanna Vang PA-C [address] [place] [address] 126874 Assigned Cancer Care Provider 01/10/22 Fransisco Eddy MD [address] [place] [address] 767245 Assigned Rheumatology Provider 05/09/22 [place] [address] [place] [address] Assigned Pain Medication Provider 06/29/22 09/04/22 [place] [address] [place] [address] Assigned PCP 08/15/22 08/28/22 Katrin Orellana PA-C [address] [place] [address] 189345 Assigned Surgical Provider 08/15/22 02/10/24 Cristina Hsieh [facility] [address] [place] [address] LISBETH HERNANDEZ [address] Pharmacist Pharmacist 09/07/22 Alfreda Ray PA-C [address] [place] [address] 594612 Assigned Pain Medication Provider 09/05/22 09/10/23 Alfreda Ray PA-C [address] [place] [address] Assigned PCP 08/29/22 Cristina Hsieh [facility] [address] [phone] Assigned MTM Pharmacist 09/26/22 Dakota Tatum MD 6 [place] [address] Cardiovascular Disease 03/25/23 Dakota Tatum MD 6 [place] [address] Assigned Heart and Vascular Provider 05/01/23 [place] [address] CELE GASTELUM, [address] [address] Assigned Musculoskeletal Provider 04/12/24 documented as of this encounter
--- OUTSIDE RECORDS SUMMARY | 2024-07-28 14:32 | XMS_ITS | Encounter Summary ---
Author Organization [place] Address [address] [place] [address] Care Team Providers Care Golf Course Laborer Name Role Phone Esperanza Gatica MD Primary Care Provider + Esperanza Gatica MD Unavailable +[phone] Esperanza Gatica MD Unavailable +[phone] Esperanza Gatica MD Unavailable +[phone] Esperanza Gatica MD Unavailable +250 Esperanza Gatica MD Unavailable +[phone] Esperanza Gatica MD Unavailable +[phone] Jesús Orourke MD Unavailable Alfreda RayC Primary Care Provider + Alfreda Ray PA-C Unavailable + [phone] Katrin Orellana PA-C Unavailable +[phone] Shanna VangC Unavailable +[phone] Fransisco Eddy MD Unavailable [phone] Esperanza Gatica MD Unavailable +[phone] Esperanza Gatica MD Unavailable +[phone] Katrin Orellana PA-C Unavailable [phone] Cristina Hsieh [facility] Unavailable Cory Alfreda Liu PA-C Unavailable +[phone] Alfreda Ray Alexa KING Unavailable +[phone] Cristina Hsieh [facility] Unavailable +[phone] Dakota Tatum MD Unavailable Dakota Tatum MD Unavailable [phone] Srinivas Marie DO Unavailable [phone] Reason for Visit * Reason Onset Date Comments Refill Request 02/06/2012 Ultram Encounter Details Date Type Department Care Team (Late st Contact Info) Description 02/06/2012 MyC [facility] [address] [place] [address], [address] [place] [address] [place] [address] [place] [address] Refill Request (Ultram ) Social History Tobacco Use Types Packs/Day Years Used Date Smoking Tobacco: Former Cigarettes Q uit: 06/21/1973 Smokeless Tobacco: Former Alcohol Use Standard Drinks/Week Comments Yes 0 (1 standard drink = 0.6 oz pur e alcohol) rarely Comments No Sex and Gender Information Value Date Recorded Sex Assigned at Female 08/17/2018 7:56 AM RESTORATION OFFICER Legal Sex Female 4:24 AM RESTORATION OFFICER Gender Identity Female 08/17/2018 7:56 AM RESTORATION OFFICER Sexual Orientation Straight 08/17/2018 7: 56 AM RESTORATION OFFICER documented as of this encounter Miscellaneous Notes * Telephone Encounter - Leigha Rinaldi - 02/08/2012 8:03 AM CDTMessage [facility] Original authorizing provider: MD Alexandria Brannon would like a refill of the following medications: traMADol (ULTRAM) 50 MG tablet [Esperanza Gatica MD] Preferred pharmacy: [facility] Comment: Sent from my iPad documented in this encounter Plan of Treatment Upcoming Encounters Date Type Department Care Team (Late st Contact Info) Description 09/07/2024 10:00 AM CDT Office Visit [facility] [place] [address] [facility] 200 [place] [phone] Fransisco Eddy MD 515 [facility] 88 [place] [address] 09/18/2024 2:00 PM CDT Virtual Visit [facility] [address] [place] [address] 105 [place] [phone] Shanna Vang PARobinson [address] [place] [address] 03/29/2025 3:40 PM CDT Office Visit [address] [place] [address] Alfreda Ray PA-C [address] [place] [address] 477262 documented as of this encounter Visit Diagnoses Diagnosis Knee pain Pain in joint, lower leg documented in this encounter Additional Health Concerns Infection Onset Date Last Indicated Resolved Time Rule Out COVID-19 05/08/2021 05/08/2021 05/09/2021 9:08 PM RESTORATION OFFICER documented as of this encounter Care Teams Golf Course Laborer Relationship Specialty Start Date End Date Esperanza Gatica MD PCP - General Family Practice 10/13/11 12/29/21 [place] [address] [place] [address] PCP - Assigned PCP 12/05/17 08/23/18 Alfreda Ray PA-C [address] [place] [address] PCP - General Family Medicine 12/30/21 [place] [address] [place] [address] Assigned PCP 12/05/17 09/30/19 [place] [address] [place] [address] Assigned PCP 10/01/19 03/02/20 [place] [address] [place] [address] Assigned PCP 03/03/20 05/25/20 [place] [address] [place] [address] Assigned PCP 05/26/20 09/28/20 [place] [address] [place] [address] Assigned PCP 09/29/20 07/31/22 [place] [address] [address] [place] [place] [address] Assigned Musculoskeletal Provider 10/20/20 04/17/22 Alfreda Ray PA-C [address] [place] [address] Referring Physician Family Medicine 12/31/21 Katrin Orellana PA-C [address] [address] Physician Mold Insert Changer Dermatology 12/31/21 Shanna Vang PA-C [address] [place] [address] 618734 Assigned Cancer Care Provider 01/10/22 Fransisco Eddy MD [address] [place] [address] 076005 Assigned Rheumatology Provider 05/09/22 [place] [address] [place] [address] Assigned Pain Medication Provider 06/29/22 09/04/22 [place] [address] [place] [address] Assigned PCP 08/15/22 08/28/22 Katrin Orellana PA-C [address] [place] [address] 750705 Assigned Surgical Provider 08/15/22 02/10/24 Cristina Hsieh [facility] 3[address] [facility] LISBETH HERNANDEZ [address] Pharmacist Pharmacist 09/07/22 Alfreda Ray PA-C [address] [place] [address] Assigned Pain Medication Provider 09/05/22 09/10/23 Alfreda Ray PA-C [address] [place] [address] 512132 Assigned PCP 08/29/22 Cristina Hsieh, [facility] [address] [place] [address] Assigned MTM Pharmacist 09/26/22 Dakota Tatum MD [address] [place] [address] 352695 Cardiovascular Disease 03/25/23 Dakota Tatum MD [address] [place] [address] Assigned Heart and Vascular Provider 05/01/23 [place] [address] CELE GASTELUM, [address] [address] Assigned Musculoskeletal Provider 04/12/24 documented as of this encounter
--- OUTSIDE RECORDS SUMMARY | 2024-07-28 14:32 | XMS_ITS | Encounter Summary ---
Author Organization [place] Address [address] [place] [address] Care Team Providers Care Client Success Manager Name Role Phone Esperanza Gatica MD Primary Care Provider + Esperanza Gatica MD Unavailable + Esperanza Gatica MD Unavailable + Esperanza Gatica MD Unavailable + Esperanza Gatica MD Unavailable + Jesús Orourke MD Unavailable Alfreda Ray PA-C Primary Care Provider + Alfreda Ray PA-C Unavailable +[phone] Katrin Orellana PA-C Unavailable +[phone] Shanna Vang PA-C Unavailable +[phone] Fransisco Eddy MD Unavailable +[phone] Esperanza Gatica MD Unavailable + Esperanza Gatica MD Unavailable + Katrin Orellana PA-C Unavailable +[phone] Cristina Hsieh [facility] Unavailable +60 Alfreda Ray PA-C Unavailable [phone] Alfreda Ray PA-C Unavailable Cristina Hsieh [facility] Unavailable +[phone] Dakota Tatum MD Unavailable [phone] Dakota Tatum MD Unavailable [phone] Srinivas Marie DO Unavailable [phone] Reason for Visit * Reason Comments Medication Refill Encounter Details Date Type Department Care Team (Late st Contact Info) Description 11/02/[address], [address] [place] [address] [place] [address] [place], [place] [phone] Medication Refill Social History Tobacco Use Types [...] Sex Assigned at Female 08/17/2018 7:56 AM ROPING MACHINE TENDER Legal Sex Female 4:24 AM ROPING MACHINE TENDER Gender Identity Female 08/17/2018 7:56 AM ROPING MACHINE TENDER Sexual Orientation Straight 08/17/2018 7: 56 AM ROPING MACHINE TENDER documented as of this encounter Miscellaneous Notes * Telephone Encounter - Essence Meyer RN - 11/02/2019 10:08 AM CDT Prescription approved per [facility], [facility] or [facility] refill protocol. Essence Rodney - Registered Nurse [facility] documented in this encounter Plan of Treatment Upcoming Encounters Date Type Department Care Team (Late st Contact Info) Description 09/07/2024 10:00 AM CDT Office Visit [facility] [place] 6525 [facility] 200 [place] [phone] Fransisco Eddy MD 515 [facility] 88 [place] [address] 09/18/2024 2:00 PM CDT Virtual Visit [facility] [address] [place] [address] 105 [place] [phone] Shanna Vang PA-C [address] [place] [address] 033884 03/29/2025 3:40 PM CDT Office Visit [address] [address] Alfreda Ray PA-C [address] [place] [address] documented as of this encounter Visit Diagnoses Diagnosis Insomnia, unspecified type documented in this encounter Additional Health Concerns Infection Onset Date Last Indicated Resolved Time Rule Out COVID-19 05/08/2021 05/08/2021 05/09/2021 9:08 PM ROPING MACHINE TENDER Assessment Noted Time PHQ-9 Depression Total Score: 1 08/20/19 19 1:44 PM ROPING MACHINE TENDER documented as of this encounter Care Teams Client Success Manager Relationship Specialty Start Date End Date Esperanza Gatica MD PCP - General Family Practice 10/13/11 12/29/21 Alfreda Ray PA-C [address] [place] [address] PCP - General Family Medicine 12/30/21 [place] [address] LISB[address] GARCIA [address] Assigned PCP 10/01/19 03/02/20 [place] [address] [place] [address] Assigned PCP 03/03/20 05/25/20 [place] [address] [place] [address] Assigned PCP 05/26/20 09/28/20 [place] [address] [place] [address] Assigned PCP 09/29/20 07/31/22 Jesú[place] [address] [place] [address] Assigned Musculoskeletal Provider 10/20/20 04/17/22 Alfreda Ray PA-C [address] [place] [address] [phone] Referring Physician Family Medicine 12/31/21 Katrin Orellana PA-C [address] [place] [address] 98 [place] [address] Physician Supervisor Phosphatic Fertilizer Dermatology 12/31/21 Shanna Vang PA-C [address] [address] Assigned Cancer Care Provider 01/10/22 Fransisco Eddy MD [address] [place] [address] Assigned Rheumatology Provider 05/09/22 [place] [address] [place] [address] Assigned Pain Medication Provider 06/29/22 09/04/22 [place] [address] [place] [address] Assigned PCP 08/15/22 08/28/22 Katrin Orellana PA-C [address] [place] [address] Assigned Surgical Provider 08/15/22 02/10/24 Cristina Hsieh [facility] 3305 [facility] L[place]BETH HERNANDEZ [address] Pharmacist Pharmacist 09/07/22 Alfreda Ray PA-C [address] [place] [address] 26469 Assigned Pain Medication Provider 09/05/22 09/10/23 Alfreda Ray PA-C [address] [place] [address] Assigned PCP 08/29/22 Cristina Hsieh [facility] [address] [address] Assigned MTM Pharmacist 09/26/22 Dakota Tatum MD 516 [place] [address] Cardiovascular Disease 03/25/23 Dakota Tatum MD 6 [place] [address] Assigned Heart and Vascular Provider 05/01/23 [place] [address] CELE GASTELUM, [address] [address] Assigned Musculoskeletal Provider 04/12/24 documented as of this encounter
--- OUTSIDE RECORDS SUMMARY | 2024-07-28 14:32 | XMS_ITS | Encounter Summary ---
Author Organization [place] Address [address] [place] [address]64 Care Team Providers Care Safety Patrol Officer Name Role Phone Esperanza Gatica MD Primary Care Provider + Esperanza Gatica MD Unavailable +[phone] Esperanza Gatica MD Unavailable +[phone] Esperanza Gatica MD Unavailable +[phone] Esperanza Gatica MD Unavailable +[phone] Esperanza Gatica MD Unavailable +[phone] Esperanza Gatica MD Unavailable +[phone] Jesús Orourke MD Unavailable Alfreda RayC Primary Care Provider + Alfreda Ray PA-C Unavailable + [phone] Katrin Orellana PA-C Unavailable +[phone] Shanna VangC Unavailable +[phone] Fransisco Eddy MD Unavailable +[phone] Esperanza Gatica MD Unavailable +[phone] Esperanza Gatica MD Unavailable +[phone] Katrin Orellana PA-C Unavailable Cristina Hsieh [facility] Unavailable Alfreda Ray PA-C Unavailable +[phone] Ray, Alfreda Liu PA-C Unavailable +[phone] Cristina Hsieh [facility] Unavailable Dakota Tatum MD Unavailable Dakota Tatum MD Unavailable [phone] Srinivas Marie DO Unavailable [phone] Reason for Visit * Reason Onset Date Comments Refill Request 01/19/2012 Ambien Encounter Details Date Type Department Care Team (Late st Contact Info) Description 01/19/2012 MyC Refill [address] [address] [place] [address] [place] [address] Refill Request (Ambien) Social History Tobacco Use Types Packs/Day Years Used Date Smoking Tobacco: Former Cigarettes Q uit: 06/21/1973 Smokeless Tobacco: Former Alcohol Use Standard Drinks/Week Comments Yes 0 (1 standard drink = 0.6 oz pur e alcohol) rarely Comments No Sex and Gender Information Value Date Recorded Sex Assigned at Female 08/17/2018 7:56 AM EVALUATION MANAGER Legal Sex Female 4:24 AM EVALUATION MANAGER Gender Identity Female 08/17/2018 7:56 AM EVALUATION MANAGER Sexual Orientation Straight 08/17/2018 7: 56 AM EVALUATION MANAGER documented as of this encounter Miscellaneous [...] MG tablet [Esperanza Gatica MD] Preferred pharmacy: [facility] [place] Comment: Sent from my iPhone documented in this encounter Plan of Treatment Upcoming Encounters Date Type Department Care Team (Late st Contact Info) Description 09/07/2024 10:00 AM CDT Office Visit [facility] [place] [address] [place] [address] 200 [place] [phone] Fransisco Eddy MD [address] [place] [place] [address] 88 [place] [address] 09/18/2024 2:00 PM CDT Virtual Visit [facility] [address] [place] [address] Shanna Vang PARobinson [address] 688624 03/29/2025 3:40 PM CDT Office Visit [address] [phone] Alfreda Ray PA-C [address] [place] [address] documented as of this encounter Visit Diagnoses Diagnosis Insomnia, unspecified documented in this encounter Additional Health Concerns Infection Onset Date Last Indicated Resolved Time Rule Out COVID-19 05/08/2021 05/08/2021 05/09/2021 9:08 PM EVALUATION MANAGER documented as of this encounter Care Teams Safety Patrol Officer Relationship Specialty Start Date End Date Esperanza Gatica MD PCP - General Family Practice 10/13/11 12/29/21 [place] [address] [place] [address] PCP - Assigned PCP 12/05/17 08/23/18 Alfreda Ray PA-C [address] [place] [address] PCP - General Family Medicine 12/30/21 [place] [address] [place], [place] [address] Assigned PCP 12/05/17 09/30/19 [place] [address] [place], [place] [address] Assigned PCP 10/01/19 03/02/20 [place] [address] [place], [place] [address] Assigned PCP 03/03/20 05/25/20 [place] [address] [place] GARCIA [address] Assigned PCP 05/26/20 09/28/20 [place] [address] [place] GARCIA [address] Assigned PCP 09/29/20 07/31/22 [place] [address] [place] [address] Assigned Musculoskeletal Provider 10/20/20 04/17/22 Alfreda Ray PA-C [address] [place] [address] 544282 Referring Physician Family Medicine 12/31/21 Katrin Orellana PA-C [address] [place] [address] 169075 Physician Milieu Counselor Dermatology 12/31/21 Shanna Vang PA-C [address] [place] [address] Assigned Cancer Care Provider 01/10/22 Fransisco Eddy MD [address] [place] [address] 920605 Assigned Rheumatology Provider 05/09/22 [place] [address] [place] [address] Assigned Pain Medication Provider 06/29/22 09/04/22 [place] [address] [place] [address] Assigned PCP 08/15/22 08/28/22 Katrin Orellana PA-C [address] [place] [address] 822535 Assigned Surgical Provider 08/15/22 02/10/24 Cristina Hsieh [facility] [address] [place] [address] [place] [address] Pharmacist Pharmacist 09/07/22 Alfreda Ray PA-C [address] [place] [address]96 Assigned Pain Medication Provider 09/05/22 09/10/23 Alfreda Ray PA-C [address] [place] [address] Assigned PCP 08/29/22 Cristina Hsieh, [facility] [address] [place] [address]99 Assigned MTM Pharmacist 09/26/22 Dakota Tatum MD [address] [place] [address]180 Cardiovascular Disease 03/25/23 Dakota Tatum MD [address] [place] [address]94 Assigned Heart and Vascular Provider 05/01/23 [place] [address] [place] , [address] [address] Assigned Musculoskeletal Provider 04/12/24 documented as of this encounter
--- OUTSIDE RECORDS SUMMARY | 2024-07-28 14:32 | XMS_ITS | Encounter Summary ---
Author Organization [place] Address [address] [place] [address] Care Team Providers Care Music Video Producer Name Role Phone Esperanza Gatica MD Primary Care Provider + Esperanza Gatica MD Unavailable +[phone] Esperanza Gatica MD Unavailable +[phone] Esperanza Gatica MD Unavailable +[phone] Esperanza Gatica MD Unavailable +[phone] Esperanza Gatica MD Unavailable +[phone] Esperanza Gatica MD Unavailable +[phone] Jesús Orourke MD Unavailable Alfreda RayC Primary Care Provider + Alfreda Ray PA-C Unavailable + [phone] Katrin Orellana PA-C Unavailable [phone] Shanna VangC Unavailable +[phone] Fransisco Eddy MD Unavailable +[phone] Esperanza Gatica MD Unavailable +[phone] Esperanza Gatica MD Unavailable +[phone] Katrin Orellana PA-C Unavailable Cristina Hsieh [facility] Unavailable Cory Alfreda Liu PA-C Unavailable Alfreda Ray Alexa KING Unavailable [phone] Cristina Hsieh [facility] Unavailable Dakota Tatum MD Unavailable Dakota Tatum MD Unavailable Srinivas Marie DO Unavailable [phone] Reason for Visit * Reason Onset Date Comments Refill Request 11/06/2011 Tramadol Encounter Details Date Type Department Care Team (Late st Contact Info) Description 11/06/2011 MyC Refill [address] [phone] Ajay Vick MD [address] [facility] LISBETH HERNANDEZ [phone] Refill Request (Tramadol) Social History Tobacco Use Types Packs/Day Years Used Date Smoking Tobacco: Former Cigarettes Q uit: 06/21/1973 Smokeless Tobacco: Former Alcohol Use Standard Drinks/Week Comments Yes 0 (1 standard drink = 0.6 oz pur e alcohol) rarely Comments No Sex and Gender Information Value Date Recorded Sex Assigned at Female 08/17/2018 7:56 AM GRAIN ORIGINATION SPECIALIST Legal Sex Female 4:24 AM GRAIN ORIGINATION SPECIALIST Gender Identity Female 08/17/2018 7:56 AM GRAIN ORIGINATION SPECIALIST Sexual Orientation Straight 08/17/2018 7: 56 AM GRAIN ORIGINATION SPECIALIST documented as of this encounter Miscellaneous Notes * Telephone Encounter - Leigha Rinaldi - 11/09/2011 1:16 PM CDTMessage from MyChart: Original authorizing provider: AJAY VICK MD Barbara J Pellicci would like a refill of the following medications: traMADol (ULTRAM) 50 MG tablet [AJAY VICK MD] Preferred pharmacy: [facility] [place] Comment: I have switched to Dr. Esperanza Gatica. documented in this encounter Plan of Treatment Upcoming Encounters Date Type Department Care Team (Late st Contact Info) Description 09/07/2024 10:00 AM CDT Office Visit [facility] [place] [address] [facility] 200 [place] [phone] Fransisco Eddy MD [address] [place] [address] 88 [place] [address] 09/18/2024 2:00 PM CDT Virtual Visit [facility] [address] [place] [address] 105 [place] [address] Shanna Vang PA-C [address] [place] [address] 03/29/2025 3:40 PM CDT Office Visit [address] [place] [phone] Alfreda Ray PA-C [address] [place] [address] 128132 documented as of this encounter Visit Diagnoses Diagnosis Knee pain Pain in joint, lower leg documented in this encounter Additional Health Concerns Infection Onset Date Last Indicated Resolved Time Rule Out COVID-19 05/08/2021 05/08/2021 05/09/2021 9:08 PM GRAIN ORIGINATION SPECIALIST documented as of this encounter Care Teams Music Video Producer Relationship Specialty Start Date End Date Esperanza Gatica MD PCP - General Family Practice 10/13/11 12/29/21 [place] [address] [place] [address] PCP - Assigned PCP 12/05/17 08/23/18 Alfreda Ray PA-C [address] [place] [address] PCP - General Family Medicine 12/30/21 [place] [address] [place] [address] Assigned PCP 12/05/17 09/30/19 [place] [address] [place] [address] Assigned PCP 10/01/19 03/02/20 [place] [address] [place] [address] Assigned PCP 03/03/20 05/25/20 [place] [address] [place] [address] Assigned PCP 05/26/20 09/28/20 [place] [address] [place] [address] Assigned PCP 09/29/20 07/31/22 Jesú[place] [address] [place] GALAN [address] Assigned Musculoskeletal Provider 10/20/20 04/17/22 Alfreda Ray PA-C [address] [place] [address] Referring Physician Family Medicine 12/31/21 Katrin Orellana PA-C [address] [address] Physician Senior Compliance Officer Dermatology 12/31/21 Shanna Vang PA-C [address] [place] [address] 160824 Assigned Cancer Care Provider 01/10/22 Fransisco Eddy MD [address] [place] [address] 284695 Assigned Rheumatology Provider 05/09/22 [place] [address] [place] [address] Assigned Pain Medication Provider 06/29/22 09/04/22 [place] [address] [place] [address] Assigned PCP 08/15/22 08/28/22 Katrin Orellana PA-C [address] [place] [address]90 Assigned Surgical Provider 08/15/22 02/10/24 Cristina Hsieh [facility] [address] [facility] [place] HERNANDEZ [address] Pharmacist Pharmacist 09/07/22 Alfreda Ray PA-C [address] [place] [address] 18750 Assigned Pain Medication Provider 09/05/22 09/10/23 Alfreda Ray PA-C [address] [place] [address] 426842 Assigned PCP 08/29/22 Cristina Hsieh, [facility] [address] [address] Assigned MTM Pharmacist 09/26/22 Dakota Tatum MD [address] [place] [address] 904075 Cardiovascular Disease 03/25/23 Dakota Tatum MD [address] [place] [address] 035105 Assigned Heart and Vascular Provider 05/01/23 [place] [address] [place] , [address] [address] Assigned Musculoskeletal Provider 04/12/24 documented as of this encounter
--- OUTSIDE RECORDS SUMMARY | 2024-07-28 14:32 | XMS_ITS | Encounter Summary ---
Author Organization [place] Address [address] [place] [address] Care Team Providers Care Shipping Lead Name Role Phone Esperanza Gatica MD Primary Care Provider + Esperanza Gatica MD Unavailable +[phone] Esperanza Gatica MD Unavailable +[phone] Esperanza Gatica MD Unavailable +[phone] Esperanza Gatica MD Unavailable +[phone] Esperanza Gatica MD Unavailable +[phone] Esperanza Gatica MD Unavailable +[phone] Jesús Orourke MD Unavailable Alfreda RayC Primary Care Provider + Alfreda Ray PA-C Unavailable + [phone] Katrin Orellana PA-C Unavailable [phone] Shanna VangC Unavailable +[phone] Fransisco Eddy MD Unavailable [phone] Esperanza Gatica MD Unavailable +[phone] Esperanza Gatica MD Unavailable +[phone] Katrin Orellana PA-C Unavailable Cristina Hsieh [facility] Unavailable Ho Raymustapha Liu PA-C Unavailable +[phone] Alfreda Ray Alexa KING Unavailable +[phone] Cristina Hsieh [facility] Unavailable Dakota Tatum MD Unavailable Dakota Tatum MD Unavailable [phone] Srinivas Marie DO Unavailable [phone] Reason for Visit * Reason Onset Date Comments Refill Request 11/26/2011 vicodin Encounter Details Date Type Department Care Team (Late st Contact Info) Description 11/26/2011 MyC Refill M [address], [facility] 100 [place] [address] [place] [address] [place] [address] Refill Request (vicodin) Social History Tobacco Use Types Packs/Day Years Used Date Smoking Tobacco: Former Cigarettes Q uit: 06/21/1973 Smokeless Tobacco: Former Alcohol Use Standard Drinks/Week Comments Yes 0 (1 standard drink = 0.6 oz pur e alcohol) rarely Comments No Sex and Gender Information Value Date Recorded Sex Assigned at Female 08/17/2018 7:56 AM CREW DISPATCHER Legal Sex Female 4:24 AM CREW DISPATCHER Gender Identity Female 08/17/2018 7:56 AM CREW DISPATCHER Sexual Orientation Straight 08/17/2018 7: 56 AM CREW DISPATCHER documented as of this encounter Miscellaneous Notes [...] per tablet [Esperanza Gatica MD] Preferred pharmacy: [facility] [place] Comment: documented in this encounter Plan of Treatment Upcoming Encounters Date Type Department Care Team (Late st Contact Info) Description 09/07/2024 10:00 AM CDT Office Visit [facility] [address] 200 [place] [phone] Fransisco Eddy MD [address] [place] [address] 88 [place] [address] 09/18/2024 2:00 PM CDT Virtual Visit [facility] [address] [place] [address] 105 [place] [address] Shanna Vang PA-C [address] [place] [address] 03/29/2025 3:40 PM CDT Office Visit [address] [place] [phone] Alfreda Ray PA-C [address] [place] [address] 199252 documented as of this encounter Visit Diagnoses Diagnosis Osteoarthritis- Primary Osteoarthrosis, unspecified whether generalized or localized, unspecified site documented in this encounter Additional Health Concerns Infection Onset Date Last Indicated Resolved Time Rule Out COVID-19 05/08/2021 05/08/2021 05/09/2021 9:08 PM CREW DISPATCHER documented as of this encounter Care Teams Shipping Lead Relationship Specialty Start Date End Date Esperanza Gatica MD PCP - General Family Practice 10/13/11 12/29/21 [place] [address] [place] [address] PCP - Assigned PCP 12/05/17 08/23/18 Alfreda Ray PA-C [address] [place] [address] PCP - General Family Medicine 12/30/21 [place] [address] [place] [address] Assigned PCP 12/05/17 09/30/19 [place] [address] [place] [address] Assigned PCP 10/01/19 03/02/20 [place] [address] [place] [address] Assigned PCP 03/03/20 05/25/20 [place] [address] [place] [address] Assigned PCP 05/26/20 09/28/20 [place] [address] [place] [address] Assigned PCP 09/29/20 07/31/22 Jesú[place] [address] [place] [address] [address] Assigned Musculoskeletal Provider 10/20/20 04/17/22 Alfreda Ray PA-C [address] [place] [address] 439722 Referring Physician Family Medicine 12/31/21 Katrin Orellana PA-C [address] [place] [address] 209905 Physician Glass Ribbon Machine Operator Assistant Dermatology 12/31/21 Shanna Vang PA-C [address] 508994 Assigned Cancer Care Provider 01/10/22 Fransisco Eddy MD [address] [place] [address] 328715 Assigned Rheumatology Provider 05/09/22 [place] [address] [place]ARC[place] [address] Assigned Pain Medication Provider 06/29/22 09/04/22 [place] [address] [place] GARCIA [address] Assigned PCP 08/15/22 08/28/22 Katrin Orellana PA-C [address] [place] [address] 385335 Assigned Surgical Provider 08/15/22 02/10/24 Cristina Hsieh, [facility] [address] [facility] [place] [address] Pharmacist Pharmacist 09/07/22 Alfreda Ray PA-C [address] [place] [address] 899302 Assigned Pain Medication Provider 09/05/22 09/10/23 Alfreda Ray PA-C [address] [place] [address] 526592 Assigned PCP 08/29/22 Cristina Hsieh [facility] [address] [place] [address] Assigned MTM Pharmacist 09/26/22 Dakota Tatum MD [address] [place] [address]80 Cardiovascular Disease 03/25/23 Dakota Tatum MD [address] [place] [address] Assigned Heart and Vascular Provider 05/01/23 [place] [address] [place] , [facility] 300 [place] [address] Assigned Musculoskeletal Provider 04/12/24 documented as of this encounter
--- OUTSIDE RECORDS SUMMARY | 2024-07-28 14:32 | XMS_ITS | Encounter Summary ---
Author Organization [place] Address [address] [place] [address]381 Care Team Providers Care Mobile Mechanic Name Role Phone Ajay Vick MD Primary Care Provider [phone] Esperanza Gatica MD Primary Care Provider + Esperanza Gatica MD Unavailable + Esperanza Gatica MD Unavailable + Esperanza Gatica MD Unavailable + Esperanza Gatica MD Unavailable + Esperanza Gatica MD Unavailable + Esperanza Gatica MD Unavailable +[phone] Jesús Orourke MD Unavailable Alfreda RayC Primary Care Provider + Alfreda Ray-Gallito Unavailable +[phone] Katrin Orellana PA-C Unavailable Shanna Vang-C Unavailable +[phone] Fransisco Eddy MD Unavailable +[phone] Esperanza Gatica MD Unavailable +[phone] Esperanza Gatica MD Unavailable +[phone] Katrin Orellana PA-C Unavailable Cristina Hsieh [facility] Unavailable Ho Raymustapha Liu PA-C Unavailable [phone] Ho Raymustapha Liu PA-C Unavailable [phone] Cristina Hsieh [facility] Unavailable [phone] Dakota Tatum MD Unavailable [phone] Dakota Tatum MD Unavailable [phone] rSinivas Marie DO Unavailable [phone] Reason for Visit * Reason Onset Date Comments Refill Request 09/07/2011 Encounter Details Date Type Department Care Team (Late st Contact Info) Description 09/07/2011 MyC Refill [address] [address] Ajay Vick MD [facility] [place] [address] Refill Request Social History Tobacco Use Types Packs/Day Years Used Date Smoking Tobacco: Former Cigarettes Q uit: 06/21/1973 Smokeless Tobacco: Former Alcohol Use Standard Drinks/Week Comments Yes 0 (1 standard drink = 0.6 oz pur e alcohol) rarely Comments No Sex and Gender Information Value Date Recorded Sex Assigned at Female 08/17/2018 7:56 AM MICA PLATE LAYER HAND Legal Sex Female 4:24 AM MICA PLATE LAYER HAND Gender Identity Female 08/17/2018 7:56 AM MICA PLATE LAYER HAND Sexual Orientation Straight 08/17/2018 7: 56 AM MICA PLATE LAYER HAND documented as of this encounter Miscellaneous [...] Sosa - 09/08/2011 10:39 AM CD[facility] Original authorizing provider: AJAY VICK MD Barbara J Pellicci would like a refill of the following medications: tramadol (ULTRAM) 50 MG tablet [AJAY VICK MD] Preferred pharmacy: [facility] Comment: documented in this encounter Plan of Treatment Upcoming Encounters Date Type Department Care Team (Late st Contact Info) Description 09/07/2024 10:00 AM CDT Office Visit [facility] [address] 200 [place] [phone] Fransisco Eddy MD [address] [place] [address] 88 [place], [place] 997085 09/18/2024 2:00 PM CDT Virtual Visit [facility] [place] [address] 105 [place] [address] Shanna Vang, PARobinson [address] [place] [address] 03/29/2025 3:40 PM CDT Office Visit [address] [place] [phone] Alfreda Ray PA-C [address] [place] [address] 406742 documented as of this encounter Visit Diagnoses Diagnosis Knee pain Pain in joint, lower leg documented in this encounter Additional Health Concerns Infection Onset Date Last Indicated Resolved Time Rule Out COVID-19 05/08/2021 05/08/2021 05/09/2021 9:08 PM MICA PLATE LAYER HAND documented as of this encounter Care Teams Mobile Mechanic Relationship Specialty Start Date End Date Ajay Vick MD PCP - General Family Practice 01/29/11 10/12/11 Esperanza Gatica MD PCP - General Family Practice 10/13/11 12/29/21 [place] [address] [place] [address] PCP - Assigned PCP 12/05/17 08/23/18 Alfreda Ray PA-C [address] [place] [address] PCP - General Family Medicine 12/30/21 [place] [address] [place] [address] Assigned PCP 12/05/17 09/30/19 [place] [address] [place] [address] Assigned PCP 10/01/19 03/02/20 [place] [address] [place] [address] Assigned PCP 03/03/20 05/25/20 [place] [address] [place] [address] Assigned PCP 05/26/20 09/28/20 [place] [address] [place] [address] Assigned PCP 09/29/20 07/31/22 [place] [address] [place] [address] Assigned Musculoskeletal Provider 10/20/20 04/17/22 Alfreda Ray PA-C [address] [place] [address] 625762 Referring Physician Family Medicine 12/31/21 Katrin Orellana PA-C [address] [place] [address] 98 [place], [place] 933165 Physician Diamond Sander Dermatology 12/31/21 Shanna Vang PA-C [address] 443234 Assigned Cancer Care Provider 01/10/22 Fransisco Eddy MD [address] [place] [address] 388275 Assigned Rheumatology Provider 05/09/22 [place] [address] [place]ARC[place] [address] Assigned Pain Medication Provider 06/29/22 09/04/22 [place] [address] [place] [address] Assigned PCP 08/15/22 08/28/22 Katrin Orellana PA-C 420 [facility] 98 [place] [address] Assigned Surgical Provider 08/15/22 02/10/24 Cristina Hsieh [facility] [address] [facility] LISBETH HERNANDEZ [address] Pharmacist Pharmacist 09/07/22 Alfreda Ray PA-C [address] [place] [address] 157782 Assigned Pain Medication Provider 09/05/22 09/10/23 Alfreda Ray PA-C [address] [place] [address] 729342 Assigned PCP 08/29/22 Cristina Hsieh, [facility] [address] [address] Assigned MTM Pharmacist 09/26/22 Dakota Tatum MD 6 [place] [address] Cardiovascular Disease 03/25/23 Dakota Tatum MD 6 [place] [address] Assigned Heart and Vascular Provider 05/01/23 [place] [address] [facility], [facility] 300 [place] [address] Assigned Musculoskeletal Provider 04/12/24 documented as of this encounter
--- OUTSIDE RECORDS SUMMARY | 2024-07-28 14:32 | XMS_ITS | Encounter Summary ---
Author Organization [facility] Address [address] [place] [address] Care Team Providers Care Dean Of Girls Name Role Phone Esperanza Gatica MD Primary Care Provider + Esperanza Gatica MD Unavailable + Esperanza Gatica MD Unavailable + Esperanza Gatica MD Unavailable + Esperanza Gatica MD Unavailable + Esperanza Gatica MD Unavailable + Jesús Orourke MD Unavailable Alfreda Ray-C Primary Care Provider + Alfreda Ray-C Unavailable + [phone] aKtrin OrellanaC Unavailable +[phone] Shanna Vang-C Unavailable +[phone] Fransisco Eddy MD Unavailable +[phone] Esperanza Gatica MD Unavailable + Esperanza Gatica MD Unavailable + Katrin OrellanaC Unavailable +[phone] Cristina Hsieh [facility] Unavailable +[phone] Alfreda Ray PA-C Unavailable +[phone] Alfreda Ray PA-C Unavailable +[phone] Cristina Hsieh [facility] Unavailable + [phone] DeeptiDakota MD Unavailable + [phone] LaDakota guerra MD Unavailable + [phone] Srinivas Marie DO Unavailable Reason for Referral * Consultation (Routine) - Closed Specialty Diagnoses / Procedures Referred By Contmarcus t Referred To Contact Diagnoses Dysfunction of Eustachian tube, unspecified laterality Esperanza Gatica MD Phone: tel: fax: [facility] [address] [place] [address], [address] [place] [address] Phone: tel: Referral ID Status Reason Start Date Expiration Date Visits Re quested Visits Authorized [id number] Closed 04/13/2019 04/12/2020 1 1 Comments Your provider has referred you to: N: [facility] of [facility] [email or web address] Please be aware that coverage of these services is subject to the terms and limitations of your health insurance plan. Call member services at your health plan with any benefit or coverage questions. Please bring the following with you to your appointment: (1) Any X-Rays, CTs or MRIs which have been performed. Contact the facility where they were done to arrange for machine operator hop picker prior to your scheduled appointment. (2) List of current medications (3) This referral request (4) Any documents/labs given to you for this referral Reason for Visit * Reason Onset Date Comments Referral 04/13/2019 ENT Encounter Details Date Type Department Care Team (Late st Contact Info) Description 04/13/2019 [facility] [id number] [place] [address], [address] [place] [address] [place] [address] [address] [place], [place] [id number] Referral (ENT) Social History Tobacco Use Types [...] Sex Assigned at Female 08/17/2018 7:56 AM MAT PUNCHER Legal Sex Female 4:24 AM MAT PUNCHER Gender Identity Female 08/17/2018 7:56 AM MAT PUNCHER Sexual Orientation Straight 08/17/2018 7: 56 AM MAT PUNCHER documented as of this encounter Miscellaneous Notes * Telephone Encounter - Esperanza Gatica MD - 04/13/2019 1:39 PM CDT I can refer her to the [facility] or choose a ENT in the network, but not in [facility]. I placed the a referral to the local ent for now. Let me know if she wants to change documented in this encounter Plan of Treatment Upcoming Encounters Date Type Department Care Team ([facility] st Contact Info) Description 09/07/2024 10:00 AM CDT Office Visit [facility] [address] [place] [phone] Fransisco Eddy MD [address] [place] [address] 88 [place], [place] [address]335 09/18/2024 2:00 PM CDT Virtual Visit [facility] [address] [place] [address] Shanna Vang PA-C [address] [place] [address] 03/29/2025 3:40 PM CDT Office Visit [facility] [address] [place] [phone] Alfreda Ray PA-C [address] [place] [address] [phone] Scheduled Referrals Name Type Priority Associated Diagnoses Orde r Schedule OTOLARYNGOLOGY REFERRAL Referral Routine Dysfunction of Eustachian tube, unspecified laterality Ordered: 04/13/2019 documented as of this encounter Visit Diagnoses Diagnosis Dysfunction of Eustachian tube, unspecified laterality- Primary documented in this encounter Additional Health Concerns Infection Onset Date Last Indicated Resolved Time Rule Out COVID-19 05/08/2021 05/08/2021 05/09/2021 9:08 PM MAT PUNCHER Assessment Noted Time PHQ-9 Depression Total Score: 1 08/20/19 19 1:44 PM MAT PUNCHER documented as of this encounter Care Teams Dean Of Girls Relationship Specialty Start Date End Date Esperanza Gatica MD PCP - General Family Practice 10/13/11 12/29/21 Alfreda Ray PA-C [address] [place] [address] PCP - General Family Medicine 12/30/21 [place] [address] [address] GARCIA [address] Assigned PCP 12/05/17 09/30/19 [place] [address] [address] 75526 Assigned PCP 10/01/19 03/02/20 [place] [address] [place] [address] Assigned PCP 03/03/20 05/25/20 [place] [address] [place] [address] Assigned PCP 05/26/20 09/28/20 [place] [address] [place] [address] Assigned PCP 09/29/20 07/31/22 Jesú[place] [address] [address] Assigned Musculoskeletal Provider 10/20/20 04/17/22 Alfreda Ray PA-C [address] [place] [address] 949172 Referring Physician Family Medicine 12/31/21 Katrin Orellana PA-C [address] [place] [address] 499195 Physician Collections Curator Dermatology 12/31/21 Shanna Vang PA-C [address] [place] [address] 232704 Assigned Cancer Care Provider 01/10/22 Fransisco Eddy MD [address] [place] [address] Assigned Rheumatology Provider 05/09/22 [place] [address] [place] [address] Assigned Pain Medication Provider 06/29/22 09/04/22 [place] [address] [place] [address] Assigned PCP 08/15/22 08/28/22 Katrin Orellana PA-C [address] [place] [address] Assigned Surgical Provider 08/15/22 02/10/24 Cristina Hsieh [facility] [address] [place] [address] LISBETH HERNANDEZ [address] Pharmacist Pharmacist 09/07/22 Alfreda Ray PA-C [address] [place] [address] 10886 Assigned Pain Medication Provider 09/05/22 09/10/23 Alfreda Ray PA-C [address] [place] [address] Assigned PCP 08/29/22 Cristina Hsieh [facility] [address] [address] Assigned MTM Pharmacist 09/26/22 Dakota Tatum MD [address] [place] [address] Cardiovascular Disease 03/25/23 Dakota Tatum MD 6 [place], [place] 158455 Assigned Heart and Vascular Provider 05/01/23 [place] [address] [address], [address] [address] Assigned Musculoskeletal Provider 04/12/24 documented as of this encounter
--- OUTSIDE RECORDS SUMMARY | 2024-07-28 14:32 | XMS_ITS | Encounter Summary ---
Author Organization [facility] Address [address] [place] [address] Care Team Providers Care Pneumatic Tester Name Role Phone Esperanza Gatica MD Primary Care Provider + Esperanza Gatica MD Unavailable + Esperanza Gatica MD Unavailable + Esperanza Gatica MD Unavailable + Esperanza Gatica MD Unavailable + Esperanza Gatica MD Unavailable + Jesús Orourke MD Unavailable Alfreda Ray-C Primary Care Provider + Alfreda Ray-C Unavailable + [phone] Katrin OrellanaC Unavailable +[phone] Shanna Vang-C Unavailable +[phone] Fransisco Eddy MD Unavailable +[phone] Esperanza Gatica MD Unavailable + Esperanza Gatica MD Unavailable + Katrin OrellanaC Unavailable +[phone] Cristina Hsieh [facility] Unavailable +82 Alfreda Ray PA-C Unavailable Alfreda Ray PA-C Unavailable MelissaCristina shields Martin [facility] Unavailable +[phone] Dakota Tatum MD Unavailable [phone] Dakota Tatum MD Unavailable [phone] Srinivas Marie Unavailable [phone] Encounter Details Date Type Department Care Team (Late st Contact Info) Description 09/25/2019 MyC Medical Advice [address] [address] Edel Corrigan WEIGHT CONTROL ENGINEER Social History Tobacco Use Types Packs/Day Years [...] Assigned at Female 08/17/2018 7:56 AM SALES EXPERT HOME THEATER Legal Sex Female 4:24 AM SALES EXPERT HOME THEATER Gender Identity Female 08/17/2018 7:56 AM SALES EXPERT HOME THEATER Sexual Orientation Straight 08/17/2018 7: 56 AM SALES EXPERT HOME THEATER documented as of this encounter Plan of Treatment Upcoming Encounters Date Type Department Care Team (Late Contact Info) Description 09/07/2024 10:00 AM CDT Office Visit [facility] [address] 200 [place] [phone] Fransisco Eddy MD [address] [place] [address] 88 [place] [address] 09/18/2024 2:00 PM CDT Virtual Visit [facility] [place] [address] 105 [place] [address] Shanna Vang PA-C [address] [place] [address] 03/29/2025 3:40 PM CDT Office Visit [address] [address] Alfreda Ray PA-C [address] [place] [address] documented as of this encounter Visit Diagnoses Not on filedocumented in this encounter Additional Health Concerns Infection Onset Date Last Indicated Resolved Time Rule Out COVID-19 05/08/2021 05/08/2021 05/09/2021 9:08 PM SALES EXPERT HOME THEATER Assessment Noted Time PHQ-9 Depression Total Score: 1 08/20/19 19 1:44 PM SALES EXPERT HOME THEATER documented as of this encounter Care Teams Pneumatic Tester Relationship Specialty Start Date End Date Esperanza Gatica MD PCP - General Family Practice 10/13/11 12/29/21 Alfreda Ray PA-C [address] [place] [address] PCP - General Family Medicine 12/30/21 [place] [address] [address] GARCIA [address] Assigned PCP 12/05/17 09/30/19 [place] [address] [address]ARCIA 07966 Assigned PCP 10/01/19 03/02/20 [place] [address] [address] GARCIA 245[address] Assigned PCP 03/03/20 05/25/20 [place] [address] [address] GARCIA [address]15[address] Assigned PCP 05/26/20 09/28/20 [place] [address] [address] 17780 Assigned PCP 09/29/20 07/31/22 [place] [address] [facility] [address] Assigned Musculoskeletal Provider 10/20/20 04/17/22 Alfreda Ray PA-C [address] [place] [address] Referring Physician Family Medicine 12/31/21 Katrin Orellana PA-C [address] [place] [address] Physician Bologna Maker Dermatology 12/31/21 Shanna Vang PA-C [facility] [address] [address] Assigned Cancer Care Provider 01/10/22 Fransisco Eddy MD [address] [place] [address] Assigned Rheumatology Provider 05/09/22 [place] [address] [address] [address] Assigned Pain Medication Provider 06/29/22 09/04/22 [place] [address] [place] [address] Assigned PCP 08/15/22 08/28/22 Katrin Orellana PA-C [address] [place] [address] Assigned Surgical Provider 08/15/22 02/10/24 Cristina Hsieh [facility] [address] [place] [address] [place] [address] Pharmacist Pharmacist 09/07/22 Alfreda Ray PA-C [address] [place] [address] Assigned Pain Medication Provider 09/05/22 09/10/23 Alfreda Ray PA-C [address] [place] [address] Assigned PCP 08/29/22 Cristina Hsieh [facility] [address] [place] [address] Assigned MTM Pharmacist 09/26/22 Dakota Tatum MD [address] [place] [address] 087625 Cardiovascular Disease 03/25/23 Dakota Tatum MD [address] [place] [address] 854095 Assigned Heart and Vascular Provider 05/01/23 [place] [address] [address], [address] [place] [address] Assigned Musculoskeletal Provider 04/12/24 documented as of this encounter
--- OUTSIDE RECORDS SUMMARY | 2024-07-28 14:33 | XMS_ITS | Encounter Summary ---
Author Organization [facility] Address [address] [place] [address] Care Team Providers Care Corporate Recycling Manager Name Role Phone Esperanza Gatica MD Primary Care Provider + Esperanza Gatica MD Unavailable + Esperanza Gatica MD Unavailable + Esperanza Gatica MD Unavailable + Esperanza Gatica MD Unavailable + Esperanza Gatica MD Unavailable + Jesús Orourke MD Unavailable Alfreda Ray-C Primary Care Provider + Alfreda Ray-C Unavailable + [phone] Katrin OrellanaC Unavailable +[phone] Shanna Vang-C Unavailable +[phone] Fransisco Eddy MD Unavailable +[phone] Esperanza Gatica MD Unavailable + Esperanza Gatica MD Unavailable + Katrin OrellanaC Unavailable +[phone] Cristina Hsieh [facility] Unavailable +60 Alfreda Ray PA-C Unavailable Cory Alfreda Liu PA-C Unavailable Cristina Hsieh Martin [facility] Unavailable +[phone] DeeptiDakota MD Unavailable +[phone] NicholDakota yousif MD Unavailable +[phone] Srinivas Marie Unavailable [phone] Encounter Details Date Type Department Care Team (Late st Contact Info) Description 07/27/2019 MyC Medical Advice [address], [address] [place] [address] [place] [address] [place] [address] Social History Tobacco Use [...] Sex Assigned at Female 08/17/2018 7:56 AM COIL FINISHER Legal Sex Female 4:24 AM COIL FINISHER Gender Identity Female 08/17/2018 7:56 AM COIL FINISHER Sexual Orientation Straight 08/17/2018 7: 56 AM COIL FINISHER documented as of this encounter Plan of Treatment Upcoming Encounters Date Type Department Care Team (Late st Contact Info) Description 09/07/2024 10:00 AM CDT Office Visit [facility] [address] [place] [address] Fransisco Eddy MD [address] [place] [address] 09/18/2024 2:00 PM CDT Virtual Visit [facility]ot[facility] Disorders [address] [place] [address] 105 [place] [address] Shanna Vang PA-C [address] [place] [address] 03/29/2025 3:40 PM CDT Office Visit [address] [phone] Alfreda Ray PA-C [address] [place] [address] 025232 documented as of this encounter Visit Diagnoses Not on filedocumented in this encounter Additional Health Concerns Infection Onset Date Last Indicated Resolved Time Rule Out COVID-19 05/08/2021 05/08/2021 05/09/2021 9:08 PM COIL FINISHER Assessment Noted Time PHQ-9 Depression Total Score: 1 08/20/19 19 1:44 PM COIL FINISHER documented as of this encounter Care Teams Corporate Recycling Manager Relationship Specialty Start Date End Date Esperanza Gatica MD PCP - General Family Practice 10/13/11 12/29/21 Alfreda Ray PA-C [address] [place] [address] 541932 PCP - General Family Medicine 12/30/21 [place] [address] [address] GARCIA [address] Assigned PCP 12/05/17 09/30/19 [place] [address] [address] GARCIA [address] Assigned PCP 10/01/19 03/02/20 [place] [address] [place] [address] Assigned PCP 03/03/20 05/25/20 [place] [address] [place] [address] Assigned PCP 05/26/20 09/28/20 [place] [address] [place] [address] Assigned PCP 09/29/20 07/31/22 Jesú[place] [address] [place] [address] Assigned Musculoskeletal Provider 10/20/20 04/17/22 Alfreda Ray PA-C [address] [place] [address] [phone] Referring Physician Family Medicine 12/31/21 Katrin Orellana PA-C [address] [place] [address] 043965 Physician Psychodramatist Dermatology 12/31/21 Shanna Vang PA-C [address] [place] [address] 468424 Assigned Cancer Care Provider 01/10/22 Fransisco Eddy MD [address] [place] [address] 529405 Assigned Rheumatology Provider 05/09/22 [place] [address] [place] [address] Assigned Pain Medication Provider 06/29/22 09/04/22 [place] [address] [place] [address] Assigned PCP 08/15/22 08/28/22 Katrin Orellana PA-C [address] [place] [address] 648965 Assigned Surgical Provider 08/15/22 02/10/24 Cristina Hsieh [facility] [address] [place] [address] LISBETH HERNANDEZ [address] Pharmacist Pharmacist 09/07/22 Alfreda Ray PA-C [address] [place] [address] 853762 Assigned Pain Medication Provider 09/05/22 09/10/23 Alfreda Ray PA-C [address] [place] [address] Assigned PCP 08/29/22 Cristina Hsieh [facility] [address] [phone] Assigned MTM Pharmacist 09/26/22 Dakota Tatum MD 6 [place] [address] Cardiovascular Disease 03/25/23 Dakota Tatum MD 6 [place] [address] Assigned Heart and Vascular Provider 05/01/23 [place] [address] [address]UM, [address] [address] Assigned Musculoskeletal Provider 04/12/24 documented as of this encounter
--- OUTSIDE RECORDS SUMMARY | 2024-07-28 14:33 | XMS_ITS | Encounter Summary ---
Author Organization [facility] Address [address] [place] [address] Care Team Providers Care Special Crimes Investigator Name Role Phone Esperanza Gatica MD Primary Care Provider + Esperanza Gatica MD Unavailable + Esperanza Gatica MD Unavailable + Esperanza Gatica MD Unavailable + Esperanza Gatica MD Unavailable + Esperanza Gatica MD Unavailable + Jesús Orourke MD Unavailable Alfreda Ray-C Primary Care Provider + Alfreda Ray-C Unavailable + [phone] Katrin OrellanaC Unavailable +[phone] Shanna Vang-C Unavailable +[phone] Fransisco Eddy MD Unavailable [phone] Esperanza Gatica MD Unavailable + Esperanza Gatica MD Unavailable + Katrin OrellanaC Unavailable +[phone] Cristina Hsieh [facility] Unavailable +60 Alfreda Ray PA-C Unavailable Alfreda Ray PA-C Unavailable +[phone] MelissaCristina shields Martin [facility] Unavailable +[phone] Dakota Tatum MD Unavailable [phone] Dakota Tatum MD Unavailable +[phone] CynthiaSrinivas gaytan Unavailable [phone] Encounter Details Date Type Department Care Team (Late st Contact Info) Description 08/01/2019 MyC Medical Advice [address], [address] [place] [address] Chitra López Social History Tobacco [...] Sex Assigned at Female 08/17/2018 7:56 AM GUEST EXPERIENCE MANAGER Legal Sex Female 4:24 AM GUEST EXPERIENCE MANAGER Gender Identity Female 08/17/2018 7:56 AM GUEST EXPERIENCE MANAGER Sexual Orientation Straight 08/17/2018 7: 56 AM GUEST EXPERIENCE MANAGER documented as of this encounter Plan of Treatment Upcoming Encounters Date Type Department Care Team (Late Contact Info) Description 09/07/2024 10:00 AM CDT Office Visit [facility] [address] [place] [phone] Fransisco Eddy MD [address] [place] [address] [address] [place] [address] 09/18/2024 2:00 PM CDT Virtual Visit [facility] for Bleeding [facility] Clotting Disorders [facility] [address] [facility] 105 [place] [address] Shanna Vang PA-C [address] [place] [address] 03/29/2025 3:40 PM CDT Office Visit [address] [address] Alfreda Ray PA-C [address] [place] [address] documented as of this encounter Visit Diagnoses Not on filedocumented in this encounter Additional Health Concerns Infection Onset Date Last Indicated Resolved Time Rule Out COVID-19 05/08/2021 05/08/2021 05/09/2021 9:08 PM GUEST EXPERIENCE MANAGER Assessment Noted Time PHQ-9 Depression Total Score: 1 08/20/19 19 1:44 PM GUEST EXPERIENCE MANAGER documented as of this encounter Care Teams Special Crimes Investigator Relationship Specialty Start Date End Date Esperanza Gatica MD PCP - General Family Practice 10/13/11 12/29/21 Alfreda Ray PA-C [address] [place] [address] PCP - General Family Medicine 12/30/21 [place] [address] [address] GARCIA [address] Assigned PCP 12/05/17 09/30/19 [place] [address] [address] GARCIA [address] Assigned PCP 10/01/19 03/02/20 [place] [address] LISBE[address] GARCIA [address] Assigned PCP 03/03/20 05/25/20 [place] [address] [place] [address] Assigned PCP 05/26/20 09/28/20 [place] [address] [place] [address] Assigned PCP 09/29/20 07/31/22 Jesú[place] [address] [address] Assigned Musculoskeletal Provider 10/20/20 04/17/22 Alfreda Ray PA-C [address] [place] [address] Referring Physician Family Medicine 12/31/21 Katrin Orellana PA-C [address] [place] [address] 879175 Physician Checker In Dermatology 12/31/21 Shanna Vang PA-C [facility] [address] [address] Assigned Cancer Care Provider 01/10/22 Fransisco Eddy MD [address] [place] [address] 987025 Assigned Rheumatology Provider 05/09/22 [place] [address] [place] [address] Assigned Pain Medication Provider 06/29/22 09/04/22 [place] [address] [place] [address] Assigned PCP 08/15/22 08/28/22 Katrin Orellana PA-C [address] [place] [address] Assigned Surgical Provider 08/15/22 02/10/24 Cristina Hsieh RPH [address] [place] [address] [place] [address] Pharmacist Pharmacist 09/07/22 Alfreda Ray PA-C [address] [place] [address] Assigned Pain Medication Provider 09/05/22 09/10/23 Alfreda Ray PA-C [address] [place] [address] Assigned PCP 08/29/22 Cristina Hsieh [facility] [address] [address] Assigned MTM Pharmacist 09/26/22 Dakota Tatum MD [address] [place] [address] Cardiovascular Disease 03/25/23 Dakota Tatum MD [address] [place] [address] Assigned Heart and Vascular Provider 05/01/23 [place] [address] CE[address]ASTELUM, [address] [place] [address] Assigned Musculoskeletal Provider 04/12/24 documented as of this encounter
--- OUTSIDE RECORDS SUMMARY | 2024-07-28 14:33 | XMS_ITS | Encounter Summary ---
Author Organization [facility] Address [address] [place] [address] Care Team Providers Care Hydrometeorological Technician Name Role Phone Ajay Vick MD Primary Care Provider +[phone] Esperanza Gatica MD Primary Care Provider + Esperanza Gatica MD Unavailable + Esperanza Gatica MD Unavailable + Esperanza Gatica MD Unavailable + Esperanza Gatica MD Unavailable + Esperanza Gatica MD Unavailable + Esperanza Gatica MD Unavailable +[phone] Jesús Orourke MD Unavailable Alfreda RayC Primary Care Provider + Alfreda Ray-Gallito Unavailable +[phone] Katrin Orellana PA-C Unavailable Shanna Vang-C Unavailable +[phone] Fransisco Eddy MD Unavailable +[phone] Esperanza Gatica MD Unavailable +[phone] Esperanza Gatica MD Unavailable [phone] Katrin Orellana PA-C Unavailable Cristina Hsieh [facility] Unavailable Ho Raymustapha Liu PA-C Unavailable [phone] Ho Raymustapha Liu PA-C Unavailable Cristina Hsieh [facility] Unavailable Dakota Tatum MD Unavailable [phone] Dakota Tatum MD Unavailable [phone] Srinivas Marie DO Unavailable [phone] Reason for Visit * Reason Onset Date Comments Refill Request 07/23/2011 tramadol Encounter Details Date Type Department Care Team (Late st Contact Info) Description 07/23/2011 MyC Refill [address] [address] Ajay Vick MD [address] [facility] [place] [address] Refill Request (tramadol) Social History Tobacco Use Types Packs/Day Years Used Date Smoking Tobacco: Former Cigarettes Q uit: 06/21/1973 Smokeless Tobacco: Former Alcohol Use Standard Drinks/Week Comments Yes 0 (1 standard drink = 0.6 oz pur e alcohol) rarely Comments No Sex and Gender Information Value Date Recorded Sex Assigned at Female 08/17/2018 7:56 AM SENIOR ENVIRONMENTAL SCIENTIST Legal Sex Female 4:24 AM SENIOR ENVIRONMENTAL SCIENTIST Gender Identity Female 08/17/2018 7:56 AM SENIOR ENVIRONMENTAL SCIENTIST Sexual Orientation Straight 08/17/2018 7: 56 AM SENIOR ENVIRONMENTAL SCIENTIST documented as of this encounter Miscellaneous Notes * Telephone Encounter - Sharon Sosa - 07/23/2011 9:04 AM CST Medication requested: Ultram 50 mg tabs Date of last office visit related to request: 03/31/11 Date last filled: 05/25/11 Qty #[id number] This is not a PSO medication, forwarded to provider for authorization. Michelle Sosa RN OR ENVIRONMENTAL SCIENTIST * Telephone Encounter - Kassandra David - 07/23/2011 9:01 AM CST TRAMADOL Last OV: 03/31/11 Reason for visit: right knee pain Last fill date: 05/25/11 #90 Unable to fill per standing order routed to Dr. Vick for approval. Kassandra David RN OR ENVIRONMENTAL SCIENTIST * Telephone Encounter - Kassandra David - 07/23/2011 8:56 AM [facility] Original authorizing provider: AJAY VICK MD Barbara J Pellicci would like a refill of the following medications: tramadol (ULTRAM) 50 MG tablet [AJAY VICK MD] Preferred pharmacy: [facility] Comment: OR ENVIRONMENTAL SCIENTIST documented in this encounter Plan of Treatment Upcoming Encounters Date Type Department Care Team (Late st Contact Info) Description 09/07/2024 10:00 AM CDT Office Visit [facility] [address] [place] [phone] Fransisco Eddy MD [address] [place] [address] 88 [place] [address] 09/18/2024 2:00 PM CDT Virtual Visit [facility] [address] [place] [address] 105 [place] [address] Shanna Vang PA-C [address] [place] [address] 03/29/2025 3:40 PM CDT Office Visit [address] [phone] Alfreda Ray PA-C [address] [place] [address] documented as of this encounter Visit Diagnoses Diagnosis Knee pain Pain in joint, lower leg documented in this encounter Additional Health Concerns Infection Onset Date Last Indicated Resolved Time Rule Out COVID-19 05/08/2021 05/08/2021 05/09/2021 9:08 PM SENIOR ENVIRONMENTAL SCIENTIST documented as of this encounter Care Teams Hydrometeorological Technician Relationship Specialty Start Date End Date Ajay Vick MD PCP - General Family Practice 01/29/11 10/12/11 Esperanza Gatica MD PCP - General Family Practice 10/13/11 12/29/21 [place] [address] [address] [address] PCP - Assigned PCP 12/05/17 08/23/18 Alfreda Ray PA-C [address] [place] [address] PCP - General Family Medicine 12/30/21 [place] [address] [address]ARCIA [address] Assigned PCP 12/05/17 09/30/19 [place] [address] [address] [address] Assigned PCP 10/01/19 03/02/20 [place] [address] [address] [address] Assigned PCP 03/03/20 05/25/20 [place] [address] [address] [place] [address] Assigned PCP 05/26/20 09/28/20 [place] [address] [place] [address] Assigned PCP 09/29/20 07/31/22 Jesú[place] [address] [place] [address] [address] Assigned Musculoskeletal Provider 10/20/20 04/17/22 Alfreda Ray PA-C [address] [place] [address] Referring Physician Family Medicine 12/31/21 Katrin Orellana PA-C [address] [place] [address] Physician Contract Consultant Dermatology 12/31/21 Shanna Vang PA-C [address] [address] Assigned Cancer Care Provider 01/10/22 Fransisco Eddy MD [address] [place] [address] Assigned Rheumatology Provider 05/09/22 [place] [address] [place] [address] Assigned Pain Medication Provider 06/29/22 09/04/22 [place] [address] [place] [address] Assigned PCP 08/15/22 08/28/22 Katrin Orellana PA-C [address] [place] [address] Assigned Surgical Provider 08/15/22 02/10/24 Cristina Hsieh [facility] [address] [place] [address] [place] [address] Pharmacist Pharmacist 09/07/22 Alfreda Ray PA-C [address] [place] [address] 940772 Assigned Pain Medication Provider 09/05/22 09/10/23 Alfreda Ray PA-C [address] [place] [address] Assigned PCP 08/29/22 Cristina Hsieh [facility] [address] [address] Assigned MTM Pharmacist 09/26/22 Dakota Tatum MD [address] [place] [address] [id number] Cardiovascular Disease 03/25/23 Dakota Tatum MD [address] [place] [address] Assigned Heart and Vascular Provider 05/01/23 [place] [address] [address], [address] [address] Assigned Musculoskeletal Provider 04/12/24 documented as of this encounter
--- OUTSIDE RECORDS SUMMARY | 2024-07-28 14:33 | XMS_ITS | Clinical Summary ---
Author Organization [facility] Address [place], [place] [address] Care Team Providers Care Automatic Splicing Machine Operator Name Role Phone Clinic, No Pcp [...] on file Legal Sex Female 5:27 AM MACHINE PLUG SHAPER Gender Identity Not on file Sexual Orientation Not on file Obstetrics History Last Filed Vital Signs Vital Sign Reading Time Taken Comments Blood Pressure 125/62 01/31/2019 10:24 AM CDT Pulse 66 01/31/2019 10:24 AM CDT Temperature 36.3 C (97.3 F) 04/29/2015 8:20 AM MACHINE PLUG SHAPER Respiratory Rate 16 04/29/2015 8:45 AM MACHINE PLUG SHAPER Oxygen Saturation 98% 04/29/2015 8:45 AM MACHINE PLUG SHAPER Inhaled Oxygen Concentration - - Weight 61.7 kg (135 lb 15.3 oz) 015 12:42 AM MACHINE PLUG SHAPER Height 160 cm (5' 3) 04/29/2015 6:24 AM MACHINE PLUG SHAPER Body Mass Index 24.08 04/25/2015 12:42 AM MACHINE PLUG SHAPER Plan of Treatment Health Maintenance Due Date [...] history exists Medical Devices Implanted Type Area Tailor'S Aide Device Identifier Shelf Expiration Date Model / Serial / Lot Lens Iol 21.5 Wf [id number]. 5 - [id number] Implanted:Qty: 1 on 04/15/2015 by David Garcia MD at [facility] Left: Eye [employer] 01/14/2020 [id number]. 5# / [id number] / Lens Iol 20.5 Wf [id number]. 5 - [id number] Implanted:Qty: 1 on 04/29/2015 by David Garcia MD at [facility] Right: Eye [employer] 01/19/2020 [id number]. 5# / [id number] / Insurance MEDICARE PART B HB [...] 6:17 AM 04/15/2015 7:54 AM Care Teams Automatic Splicing Machine Operator Relationship Specialty Start Date End Date Clinic, No Pcp Or . PCP - General 02/26/22
--- OUTSIDE RECORDS SUMMARY | 2024-07-28 14:33 | XMS_ITS | Encounter Summary ---
Author Organization [facility] Address [address] [place] [address] Care Team Providers Care Bag Inspector Name Role Phone Ajay Dailey MD Primary Care Provider [phone] Esperanza Gatica MD Primary Care Provider + Esperanza Gatica MD Unavailable + Esperanza Gatica MD Unavailable + Esperanza Gatica MD Unavailable + Esperanza Gatica MD Unavailable + Esperanza Gatica MD Unavailable + Esperanza Gatica MD Unavailable [phone] Jesús Orourke MD Unavailable Alfreda RayC Primary Care Provider + Alfreda Ray-Gallito Unavailable +[phone] Katrin Orellana PA-C Unavailable Shanna Vang-C Unavailable +[phone] Fransisco Eddy MD Unavailable +[phone] Esperanza Gatica MD Unavailable [phone] Esperanza Gatica MD Unavailable [phone] Katrin Orellana PA-C Unavailable Cristina Hsieh [facility] Unavailable [phone] Alfreda Liu PA-C Unavailable + [phone] Cory Alfreda Liu PA-C Unavailable [phone] Cristina Hsieh [facility] Unavailable [phone] Dakota Tatum MD Unavailable [phone] Dakota Tatum MD Unavailable [phone] Srinivas Marie DO Unavailable [phone] Reason for Visit * Reason Onset Date Comments Refill Request 02/26/2011 Encounter Details Date Type Department Care Team (Late st Contact Info) Description 02/26/[address] [address] Alfa Marcelo MD [facility] [address] [facility] 200 [place] [address] Refill Request Social History Tobacco Use Types Packs/Day Years Used Date Smoking Tobacco: Former Cigarettes Q uit: 06/21/1973 Smokeless Tobacco: Never Alcohol Use Standard Drinks/Week Comments Yes 0 (1 standard drink = 0.6 oz pur e alcohol) rarely Comments No Sex and Gender Information Value Date Recorded Sex Assigned at Female 08/17/2018 7:56 AM SLURRY WORKER Legal Sex Female 4:24 AM SLURRY WORKER Gender Identity Female 08/17/2018 7:56 AM SLURRY WORKER Sexual Orientation Straight 08/17/2018 7: 56 AM SLURRY WORKER documented as of this encounter Miscellaneous Notes * Telephone Encounter - Selin Magi - 02/26/2011 3:04 PM CDTMessage from [facility]: Original authorizing provider: Alfa Bradshaw would like a refill of the following medications: tramadol (ULTRAM) 50 MG tablet [Alfa Marcelo MD] Preferred pharmacy: [facility] Comment: Please note [address] Marcelo documented in this encounter Plan of Treatment Upcoming Encounters Date Type Department Care Team (Late st Contact Info) Description 09/07/2024 10:00 AM CDT Office Visit [facility] [place] [address] [facility] 200 [place] [phone] Fransisco Eddy MD [address] [place] [address] 88 [place] [address] 09/18/2024 2:00 PM CDT Virtual Visit [facility] [address] [place] [phone] Shanna Vang, PARobinson [address] [address] 03/29/2025 3:40 PM CDT Office Visit [address] [phone] Alfreda Ray, FERNANDO [address] [place] [address] 743092 documented as of this encounter Visit Diagnoses Diagnosis DJD (degenerative joint disease) of knee Osteoarthrosis, unspecified whether generalized or localized, lower leg documented in this encounter Additional Health Concerns Infection Onset Date Last Indicated Resolved Time Rule Out COVID-19 05/08/2021 05/08/2021 05/09/2021 9:08 PM SLURRY WORKER documented as of this encounter Care Teams Bag Inspector Relationship Specialty Start Date End Date Ajay Dailey MD PCP - General Family Practice 01/29/11 10/12/11 Esperanza Gatica MD PCP - General Family Practice 10/13/11 12/29/21 [place] [address] [place] [address] PCP - Assigned PCP 12/05/17 08/23/18 Alfreda Ray PA-C [address] [place] [address] PCP - General Family Medicine 12/30/21 [place] [address] [place] [address] Assigned PCP 12/05/17 09/30/19 [place] [address] [place] [address] Assigned PCP 10/01/19 03/02/20 [place] [address] [place] [address] Assigned PCP 03/03/20 05/25/20 [place] [address] [place] [address] Assigned PCP 05/26/20 09/28/20 [place] [address] [place] [address] Assigned PCP 09/29/20 07/31/22 Jesú[place] [address] [place] [address] Assigned Musculoskeletal Provider 10/20/20 04/17/22 Alfreda Ray PA-C [address] [place] [address] [id number] Referring Physician Family Medicine 12/31/21 Katrin Orellana PA-C [address] [place] [address] 073105 Physician Timber Bucker Dermatology 12/31/21 Shanna Vang PA-C [address] [place] [address] 684134 Assigned Cancer Care Provider 01/10/22 Fransisco Eddy MD [address] [place] [address] 720025 Assigned Rheumatology Provider 05/09/22 [place] [address] [facility] [address] Assigned Pain Medication Provider 06/29/22 09/04/22 [place] [address] [place] [address] Assigned PCP 08/15/22 08/28/22 Katrin Orellana PA-C [address] [place] [address] 031925 Assigned Surgical Provider 08/15/22 02/10/24 Cristina Hsieh [facility] [address] [facility] [place] [address] Pharmacist Pharmacist 09/07/22 Alfreda Ray PA-C [address] [place] [address] Assigned Pain Medication Provider 09/05/22 09/10/23 Alfreda Ray PA-C [address] [place] [address] Assigned PCP 08/29/22 Cristina Hsieh, [facility] [address] [address] Assigned MTM Pharmacist 09/26/22 Dakota Tatum MD [address] [place] [address] Cardiovascular Disease 03/25/23 Dakota Tatum MD [address] [place] [address] Assigned Heart and Vascular Provider 05/01/23 [place] [address] [address], [facility] [address] [place] [address] Assigned Musculoskeletal Provider 04/12/24 documented as of this encounter
--- OUTSIDE RECORDS SUMMARY | 2024-07-28 14:33 | XMS_ITS | Encounter Summary ---
Author Organization [facility] Address [address] [place] [address] Care Team Providers Care Library Science Instructor Name Role Phone Esperanza Gatica MD Primary Care Provider + Esperanza Gatica MD Unavailable + Esperanza Gatica MD Unavailable + Esperanza Gatica MD Unavailable + Esperanza Gatica MD Unavailable + Esperanza Gatica MD Unavailable + Jesús Orourke MD Unavailable Alfreda Ray-C Primary Care Provider + Alfreda Ray-C Unavailable + [phone] Katrin OrellanaC Unavailable [phone] Shanna Vang-C Unavailable +[phone] Fransisco Eddy MD Unavailable [phone] Esperanza Gatica MD Unavailable + Esperanza Gatica MD Unavailable + Katrin OrellanaC Unavailable +[phone] Cristina Hsieh [facility] Unavailable +[phone] Alfreda Ray PA-C Unavailable +[phone] Alfreda Ray PA-C Unavailable [phone] MelissaCristina shields Martin [facility] Unavailable [phone] LaDakota guerra MD Unavailable [phone] LaDakota guerra MD Unavailable [phone] Srinivas Marie DO Unavailable [phone] Encounter Details Date Type Department Care Team (Late st Contact Info) Description 07/26/2019 MyC Medical Advice [address], [address] [place] [address] [place] [address] [place] [address] Social History Tobacco Use Types [...] Sex Assigned at Female 08/17/2018 7:56 AM INSIDE STEWARD/STEWARDESS Legal Sex Female 4:24 AM INSIDE STEWARD/STEWARDESS Gender Identity Female 08/17/2018 7:56 AM INSIDE STEWARD/STEWARDESS Sexual Orientation Straight 08/17/2018 7: 56 AM INSIDE STEWARD/STEWARDESS documented as of this encounter Miscellaneous Notes * Telephone Encounter - Claudia Stoll RN - 07/26/2019 1:20 PM INSIDE STEWARD/STEWARDESS temazepam (RESTORIL) 7.5 MG capsule 90 capsule 0 06/02/2019 No Sig - Route: Take 1 capsule (7.5 mg) by mouth At Bedtime - Oral Sent to pharmacy as: temazepam (RESTORIL) 7.5 MG capsule Class: E-Prescribe Order: [id number] E-Prescribing Status: Receipt confirmed by pharmacy (06/02/2019 ??3:54 PM INSIDE STEWARD/STEWARDESS) Claudia Stoll RN Flex DE STEWARD/STEWARDESS documented in this encounter Plan of Treatment Upcoming Encounters Date Type Department Care Team (Late st Contact Info) Description 09/07/2024 10:00 AM CDT Office Visit [facility] [place] [address] [place] [address] 200 [place] [phone] Fransisco Eddy MD [address] [place] [address] 88 [place] [address] 09/18/2024 2:00 PM CDT Virtual Visit [facility] [address] [place] [phone] Shanna Vang PA-C [address] [address] 03/29/2025 3:40 PM CDT Office Visit [address] [phone] Alfreda Ray PA-C [address] [place] [address] 324232 documented as of this encounter Visit Diagnoses Not on filedocumented in this encounter Additional Health Concerns Infection Onset Date Last Indicated Resolved Time Rule Out COVID-19 05/08/2021 05/08/2021 05/09/2021 9:08 PM INSIDE STEWARD/STEWARDESS Assessment Noted Time PHQ-9 Depression Total Score: 1 08/20/19 19 1:44 PM INSIDE STEWARD/STEWARDESS documented as of this encounter Care Teams Library Science Instructor Relationship Specialty Start Date End Date Esperanza Gatica MD PCP - General Family Practice 10/13/11 12/29/21 Alfreda Ray PA-C [address] [place] [address] PCP - General Family Medicine 12/30/21 [place] [address] [place] [address] Assigned PCP 12/05/17 09/30/19 [place] [address] [place] [address] Assigned PCP 10/01/19 03/02/20 [place] [address] [place] [address] Assigned PCP 03/03/20 05/25/20 [place] [address] [place] [address] Assigned PCP 05/26/20 09/28/20 [place] [address] [place] [address] Assigned PCP 09/29/20 07/31/22 Jesú[place] [address] [place] [address] Assigned Musculoskeletal Provider 10/20/20 04/17/22 Alfreda Ray PA-C [address] [place] [address] Referring Physician Family Medicine 12/31/21 Katrin Orellana PA-C [address] [place] [address] Physician Snow Removal Supervisor Dermatology 12/31/21 Shanna Vang PA-C [address] [place] [address] Assigned Cancer Care Provider 01/10/22 Fransisco Eddy MD [address] [place] [address] Assigned Rheumatology Provider 05/09/22 [place] [address] [place] [address] Assigned Pain Medication Provider 06/29/22 09/04/22 [place] [address] [address] [place] [address] Assigned PCP 08/15/22 08/28/22 Katrin Orellana PA-C [address] [place] [address] Assigned Surgical Provider 08/15/22 02/10/24 Cristina Hsieh [facility] [address] [place] [address] Pharmacist Pharmacist 09/07/22 Alfreda Ray PA-C [address] [place] [address] Assigned Pain Medication Provider 09/05/22 09/10/23 Alfreda Ray PA-C [address] [place] [address] 541582 Assigned PCP 08/29/22 Cristina Hsieh, [facility] [address] [address] Assigned MTM Pharmacist 09/26/22 Dakota Tatum MD [address] [place] [address] Cardiovascular Disease 03/25/23 Dakota Tatum MD [address] [place] [address] Assigned Heart and Vascular Provider 05/01/23 [place] [address] [address]UM, [address] [address] Assigned Musculoskeletal Provider 04/12/24 documented as of this encounter
--- OUTSIDE RECORDS SUMMARY | 2024-07-28 14:33 | XMS_ITS | Encounter Summary ---
Author Organization [facility] Address [address] [place] [address] Care Team Providers Care Sequencing Machine Operator Name Role Phone Esperanza Gatica MD Primary Care Provider + Esperanza Gatica MD Unavailable + Esperanza Gatica MD Unavailable + Esperanza Gatica MD Unavailable + Esperanza Gatica MD Unavailable + Esperanza Gatica MD Unavailable + Jesús Orourke MD Unavailable Alfreda Ray-C Primary Care Provider + Alfreda Ray-C Unavailable + [phone] Katrin OrellanaC Unavailable [phone] Shanna Vang-C Unavailable +[phone] Fransisco Eddy MD Unavailable [phone] Esperanza Gatica MD Unavailable + Esperanza Gatica MD Unavailable + Katrin OrellanaC Unavailable +[phone] Cristina Hsieh [facility] Unavailable +[phone] Alfreda Ray PA-C Unavailable Cory Alfreda Liu PA-C Unavailable [phone] Cristina Hsieh Martin [facility] Unavailable [phone] DeeptiDakota MD Unavailable [phone] NicholDakota yousif MD Unavailable [phone] Srinivas Marie Unavailable Encounter Details Date Type Department Care Team (Late st Contact Info) Description 07/27/2019 MyC Medical Advice [address], [address] [place] [address] [place] [address] [place] [address] Social History Tobacco Use Types [...] Sex Assigned at Female 08/17/2018 7:56 AM LITHOGRAPHIC CAMERA OPERATOR Legal Sex Female 4:24 AM LITHOGRAPHIC CAMERA OPERATOR Gender Identity Female 08/17/2018 7:56 AM LITHOGRAPHIC CAMERA OPERATOR Sexual Orientation Straight 08/17/2018 7: 56 AM LITHOGRAPHIC CAMERA OPERATOR documented as of this encounter Plan of Treatment Upcoming Encounters Date Type Department Care Team (Late st Contact Info) Description 09/07/2024 10:00 AM CDT Office Visit [facility] [address] [place] [address] Fransisco Eddy MD [address] [place] [address] 09/18/2024 2:00 PM CDT Virtual Visit [facility] [address] [place] [address] 105 [place] [address] Shanna Vang PA-C [address] [place] [address] 03/29/2025 3:40 PM CDT Office Visit [address] [phone] Alfreda Ray PA-C [address] [place] [address] 617382 documented as of this encounter Visit Diagnoses Not on filedocumented in this encounter Additional Health Concerns Infection Onset Date Last Indicated Resolved Time Rule Out COVID-19 05/08/2021 05/08/2021 05/09/2021 9:08 PM LITHOGRAPHIC CAMERA OPERATOR Assessment Noted Time PHQ-9 Depression Total Score: 1 08/20/19 19 1:44 PM LITHOGRAPHIC CAMERA OPERATOR documented as of this encounter Care Teams Sequencing Machine Operator Relationship Specialty Start Date End Date Esperanza Gatica MD PCP - General Family Practice 10/13/11 12/29/21 Alfreda Ray PA-C [address] [place] [address] 427602 PCP - General Family Medicine 12/30/21 [place] [address] LISBETH GARCIA [address] Assigned PCP 12/05/17 09/30/19 [place] [address] LISB[address] GARCIA 06276 Assigned PCP 10/01/19 03/02/20 [place] [address] [place] [address] Assigned PCP 03/03/20 05/25/20 [place] [address] [place] [address] Assigned PCP 05/26/20 09/28/20 [place] [address] [place] [address] Assigned PCP 09/29/20 07/31/22 Jesú[place] [address] [place] [address] Assigned Musculoskeletal Provider 10/20/20 04/17/22 Alfreda Ray PA-C [address] [place] [address] [phone] Referring Physician Family Medicine 12/31/21 Katrin Orellana PA-C [address] [place] [address] [phone] Physician Appraisal Technician Dermatology 12/31/21 Shanna Vang PA-C [address] [place] [address] 457294 Assigned Cancer Care Provider 01/10/22 Fransisco Eddy MD [address] [place] [address] 912735 Assigned Rheumatology Provider 05/09/22 [place] [address] [place] [address] Assigned Pain Medication Provider 06/29/22 09/04/22 [place] [address] [place] [address] Assigned PCP 08/15/22 08/28/22 Katrin Orellana PA-C [address] [place] [address] [phone] Assigned Surgical Provider 08/15/22 02/10/24 Cristina Hsieh [facility] [address] [place] [address] LISBETH HERNANDEZ [address] Pharmacist Pharmacist 09/07/22 Alfreda Ray PA-C [address] [place] [address] 278112 Assigned Pain Medication Provider 09/05/22 09/10/23 Alfreda Ray PA-C [address] [place] [address] 13602 Assigned PCP 08/29/22 Cristina Hsieh [facility] [address] [id number] Assigned MTM Pharmacist 09/26/22 Dakota Tatum MD 6 [place] [address] Cardiovascular Disease 03/25/23 Dakota Tatum MD 6 [place] [address] Assigned Heart and Vascular Provider 05/01/23 [place] [address] [address], [address] [address] Assigned Musculoskeletal Provider 04/12/24 documented as of this encounter
--- OUTSIDE RECORDS SUMMARY | 2024-07-28 14:33 | XMS_ITS | Encounter Summary ---
Author Organization [facility] Address [address] [place] [address] Care Team Providers Care Pin Attacher Name Role Phone Alfa Marcelo MD Primary Care Provider Ajay Dailey MD Primary Care Provider [phone] Esperanza Gatica MD Primary Care Provider Esperanza Gatica MD Unavailable [phone] Esperanza Gatica MD Unavailable [phone] Esperanza Gatica MD Unavailable +[phone] Esperanza Gatica MD Unavailable +[phone] Esperanza Gatica MD Unavailable +[phone] Esperanza Gatica MD Unavailable +[phone] Jesús Orourke MD Unavailable Alfreda RayC Primary Care Provider + Alfreda RayC Unavailable [phone] Katrin OrellanaC Unavailable Shanna Vang-C Unavailable +[phone] Fransisco Eddy MD Unavailable +[phone] Esperanza Gatica MD Unavailable +[phone] Esperanza Gatica MD Unavailable +[phone] Katrin OrellanaC Unavailable Cristina Hsieh [facility] Unavailable [phone] Cory Alfreda Liu PA-C Unavailable [phone] Cory Alfreda Liu PA-C Unavailable +[phone] Cristina Hseih [facility] Unavailable [phone] Dakota Tatum MD Unavailable [phone] Dakota Tatum MD Unavailable [phone] Srinivas Marie DO Unavailable [phone] Reason for Visit * Reason Onset Date Comments MyChart Communication 10/09/2010 Encounter Details Date Type Department Care Team (Late st Contact Info) Description 10/09/2010 MyC Medical [address] [address] Alfa Marcelo MD [facility] [address] [facility] 200 [place] [address] MyChart Communication Social History Tobacco Use Types Packs/Day Years Used Date Smoking Tobacco: Former Cigarettes Q uit: 06/21/1973 Alcohol Use Standard Drinks/Week Comments Yes 0 (1 standard drink = 0.6 oz pur e alcohol) rarely Comments No Sex and Gender Information Value Date Recorded Sex Assigned at Female 08/17/2018 7:56 AM DERRICK BARGE OPERATOR Legal Sex Female 4:24 AM DERRICK BARGE OPERATOR Gender Identity Female 08/17/2018 7:56 AM DERRICK BARGE OPERATOR Sexual Orientation Straight 08/17/2018 7: 56 AM DERRICK BARGE OPERATOR documented as of this encounter Miscellaneous Notes * Telephone Encounter - Fartun Mayes - 10/09/2010 10:17 AM CDT Please see [facility] msg and advise. Thank you. documented in this encounter Plan of Treatment Upcoming Encounters Date Type Department Care Team (Late st Contact Info) Description 09/07/2024 10:00 AM CDT Office Visit [facility] [place] [address] [facility] 200 [place] [phone] Fransisco Eddy MD [address] [facility] 88 [place], [place] 3458[address] 09/18/2024 2:00 PM CDT Virtual Visit [facility] [address] [place] [address] 105 [place] [phone] Shanna Vang PARobinson [address] [place] [address] 03/29/2025 3:40 PM CDT Office Visit [address] [place] [phone] Alfreda Ray PA-C [address] [place] [address] [phone] documented as of this encounter Visit Diagnoses Not on filedocumented in this encounter Additional Health Concerns Infection Onset Date Last Indicated Resolved Time Rule Out COVID-19 05/08/2021 05/08/2021 05/09/2021 9:08 PM DERRICK BARGE OPERATOR documented as of this encounter Care Teams Pin Attacher Relationship Specialty Start Date End Date Alfa Marcelo MD [facility] [address] [place] [address] [place] [address] PCP - General 01/22/04 01/28/11 Ajay Dailey MD [facility] [address] [place] [address] [place] [address] PCP - General Family Practice 01/29/11 10/12/11 Esperanza Gatica MD [facility] [address] [address] PCP - General Family Practice 10/13/11 12/29/21 [place] [address] ARNAV LAI, LISBETH [address] PCP - Assigned PCP 12/05/17 08/23/18 Alfreda Ray PA-C [address] [place] [address] PCP - General Family Medicine 12/30/21 [place] [address] ARNAV LAI, LISBETH [address] Assigned PCP 12/05/17 09/30/19 [place] [address] LISBETH GARCIA [address]647 Assigned PCP 10/01/19 03/02/20 [place] [address] LISBETH GARCIA [address]55[address] Assigned PCP 03/03/20 05/25/20 [place] [address] LISBETH GARCIA [address]39[address] Assigned PCP 05/26/20 09/28/20 [place] [address] LISBETH GARCIA [address] Assigned PCP 09/29/20 07/31/22 Jesú[place] [address] [place] [address] Assigned Musculoskeletal Provider 10/20/20 04/17/22 Alfreda Ray PA-C [address] [place] [address] Referring Physician Family Medicine 12/31/21 Katrin Orellana PA-C [address] [place] [address]99 Physician Hydrogen Plant Operator Dermatology 12/31/21 Shanna Vang PA-C [address] [place] [address] Assigned Cancer Care Provider 01/10/22 Fransisco Eddy MD [address] [place] [address] Assigned Rheumatology Provider 05/09/22 [place] [address] LISBETH GARCIA [address]127 Assigned Pain Medication Provider 06/29/22 09/04/22 [place] [address] LISBETH GARCIA 85910 Assigned PCP 08/15/22 08/28/22 Katrin Orellana PA-C [address] [place] [address] , [place] [address] Assigned Surgical Provider 08/15/22 02/10/24 Cristina Hsieh [facility] [address] [facility] LISBETH HERNANDEZ [address] Pharmacist Pharmacist 09/07/22 Alfreda aRy PA-C [address] [place] [address]3344 Assigned Pain Medication Provider 09/05/22 09/10/23 Alfreda Ray PA-C [address] [place] [address]23 Assigned PCP 08/29/22 Cristina Hsieh [facility] [address] [place] [address] Assigned MTM Pharmacist 09/26/22 Dakota Tatum MD [address] [place] [address]66 Cardiovascular Disease 03/25/23 Dakota Tatum MD [address] [place] [address] Assigned Heart and Vascular Provider 05/01/23 [place] [address] [address] Assigned Musculoskeletal Provider 04/12/24 documented as of this encounter
--- OUTSIDE RECORDS SUMMARY | 2024-07-28 14:33 | XMS_ITS | Encounter Summary ---
Author Organization [facility] Address [address] [place] [address]87 Care Team Providers Care Funeral Pre Arrangement Specialist Name Role Phone Alfreda Ray PA-C Primary Care Provider + Alfreda Ray PA-C Unavailable + [phone] Katrin Orellana PA-C Unavailable [phone] Shanna Vang PA-C Unavailable +[phone] Fransisco Eddy MD Unavailable [phone] Esperanza Gatica MD Unavailable +[phone] Esperanza Gatica MD Unavailable +[phone] Katrin Orellana PA-C Unavailable [phone] Cristina Hsieh [facility] Unavailable +[phone] Alfreda Ray PA-C Unavailable + [phone] Alfreda Ray PA-C Unavailable + [phone] Cristina Hsieh [facility] Unavailable [phone] Dakota Tatum MD Unavailable + [phone] Dakota Tatum MD Unavailable + [phone] Srinivas Marie DO Unavailable [phone] Encounter Details Date Type Department Care Team (Late st Contact Info) Description 08/27/2022 [facility] Medical Advice [facility] [address] [place] [address] 105 [place] [address] Mindy Herron Social History Tobacco Use Types [...] Assigned at Female 08/17/2018 7:56 AM ASSISTANT FIELD HOCKEY COACH Legal Sex Female 4:24 AM ASSISTANT FIELD HOCKEY COACH Gender Identity Female 08/17/2018 7:56 AM ASSISTANT FIELD HOCKEY COACH Sexual Orientation Straight 08/17/2018 7: 56 AM ASSISTANT FIELD HOCKEY COACH COVID-19 Exposure Response Date Recorded In the last 10 days, have yo u been in contact with someone who was confirmed or suspected to have Coronavirus/COVID-19? No / Unsure 08/26/2022 9:39 AM ASSISTANT FIELD HOCKEY COACH documented as of this encounter Plan of Treatment Upcoming Encounters Date Type Department Care Team (Late st Contact Info) Description 09/07/2024 10:00 AM CDT Office Visit [facility] [address] [phone] Fransisco Eddy MD [address] [place] [address] 09/18/2024 2:00 PM CDT Virtual Visit [facility] [address] [place] [address] 105 [place] [address] Shanna Vang, PAFilemonC [facility] [address] 03/29/2025 3:40 PM CDT Office Visit [address] [phone] Alfreda Ray PA-C [address] [place] [address] 483412 documented as of this encounter Visit Diagnoses Not on filedocumented in this encounter Additional Health Concerns Assessment Noted Time PHQ-9 Depression Total Score: 4 09/05/19 22 10:39 AM CDT documented as of this encounter Care Teams Funeral Pre Arrangement Specialist Relationship Specialty Start Date End Date Alfreda Ray PA-C [address] [place] [address] PCP - General Family Medicine 12/30/21 Alfreda Ray PA-C [address] [place] [address] Referring Physician Family Medicine 12/31/21 Katrin Orellana PA-C [address] [place] [address] Physician Attendant Honor Bar Dermatology 12/31/21 Shanna Vang PA-C [address] [address] Assigned Cancer Care Provider 01/10/22 Fransisco Eddy MD [address] [place] [address] 927405 Assigned Rheumatology Provider 05/09/22 [place] [address] LISBETH GARCIA [address] Assigned Pain Medication Provider 06/29/22 09/04/22 [place] [address] LISBETH GARCIA 668[address] Assigned PCP 08/15/22 08/28/22 Katrin Orellana PA-C [address] [place] [address] Assigned Surgical Provider 08/15/22 02/10/24 Cristina Hsieh [facility] [address] [place] [address] LISBETH HERNANDEZ [address] Pharmacist Pharmacist 09/07/22 Alfreda Ray PA-C [address] [place] [address] 669922 Assigned Pain Medication Provider 09/05/22 09/10/23 Alfreda Ray PA-C [address] [place] [address] 251522 Assigned PCP 08/29/22 Cristina Hsieh [facility] [address] [place] [address] Assigned MTM Pharmacist 09/26/22 Dakota Tatum MD [address] [place] [address] Cardiovascular Disease 03/25/23 Dakota Tatum MD [address] [place] [address]32 Assigned Heart and Vascular Provider 05/01/23 [place] [address] [address] Assigned Musculoskeletal Provider 04/12/24 documented as of this encounter
--- OUTSIDE RECORDS SUMMARY | 2024-07-28 14:33 | XMS_ITS | Encounter Summary ---
Author Organization [facility] Address [address] [place] [address]66 Care Team Providers Care Police Lieutenant Precinct Name Role Phone Alfreda Ray PA-C Primary Care Provider + Alfreda Ray PA-C Unavailable [phone] Katrin Orellana PA-C Unavailable Shanna Vang-C Unavailable [phone] Fransisco Eddy MD Unavailable Cristina Hsieh [facility] Unavailable Alfreda RayC Unavailable [phone] Cristina Hsieh [facility] Unavailable Dakota Tatum MD Unavailable Dakota Tatum MD Unavailable [phone] Srinivas Marie DO Unavailable [phone] Reason for Visit * Reason Onset Date Comments Referral 03/17/2024 Encounter Details Date Type Department Care Team (Late st Contact Info) Description 03/17/2024 Telephone [facility] [place] [phone], [address] [place] [address] Nurse, Vein Referral Social History [...] re latives? Once a week 03/15/2024 Attends [employer] Services Not on file 03/15 Active Member of Clubs or Organizations Not on f ile 03/15/2024 Attends Club or Organization Meetings Not on anu e 03/15/2024 Marital Status Not on file 03/15/2024 PHQ-2 Answer Date Recorded PHQ-2 Score 0 03/16/2024 [facility] - Occupational [...] in an abandoned building, in an overnight prison, or couch-surfing.) Yes 03/15/2024 Are you worried [...] Sex Assigned at Female 08/17/2018 7:56 AM INTENSIVE CARE UNIT NURSE Legal Sex Female 4:24 AM INTENSIVE CARE UNIT NURSE Gender Identity Female 08/17/2018 7:56 AM INTENSIVE CARE UNIT NURSE Sexual Orientation Straight 08/17/2018 7: 56 AM INTENSIVE CARE UNIT NURSE documented as of this encounter Miscellaneous Notes * Telephone Encounter - Briseyda Carmen CMA - 03/17/2024 8:24 AM CDT 03/17/24 LVM FOR PATIENT TO SCHEDULE CONSULT IN [place] documented in this encounter Plan of Treatment Upcoming Encounters Date Type Department Care Team (Late st Contact Info) Description 09/07/2024 10:00 AM CDT Office Visit [facility] [address] [place] [phone] Fransisco Eddy MD [address] [place] [address] 88 [place], [place] 874455 09/18/2024 2:00 PM CDT Virtual Visit [facility] [place] [address] 105 [place] [address] Shanna Vang, PA-C [address] [place] [address] 03/29/2025 3:40 PM CDT Office Visit [address] [phone] Alfreda Ray PA-C [address] [place] [address] 953762 documented as of this encounter Visit Diagnoses Not on filedocumented in this encounter Additional Health Concerns Assessment Noted Time PHQ-9 Depression Total Score: 5 03/09/20 23 10:57 AM CDT documented as of this encounter Care Teams Police Lieutenant Precinct Relationship Specialty Start Date End Date Alfreda Ray PA-C [address] [place] [address] PCP - General Family Medicine 12/30/21 Alfreda Ray PA-C [address] [place] [address] Referring Physician Family Medicine 12/31/21 Katrin Orellana PA-C [address] [place] [address] 98 [place] [address] Physician Industrial Tractor Driver Dermatology 12/31/21 Shanna Vang PA-C [address] [place] [address] [phone] Assigned Cancer Care Provider 01/10/22 Fransisco Eddy MD [address] [place] [address] 88 [place], [place] 252195 Assigned Rheumatology Provider 05/09/22 Cristina Hsieh [facility] [address] [facility] [place] [address] Pharmacist Pharmacist 09/07/22 Alfreda Ray PA-C [address] [place] [address] Assigned PCP 08/29/22 Cristina Hsieh [facility] [address] [address] Assigned MTM Pharmacist 09/26/22 Dakota Tatum MD [address] [place] [address] Cardiovascular Disease 03/25/23 Dakota Tatum MD [address] [place] [address] 718155 Assigned Heart and Vascular Provider 05/01/23 [place] [address] [address] Assigned Musculoskeletal Provider 04/12/24 documented as of this encounter
--- OUTSIDE RECORDS SUMMARY | 2024-07-28 14:34 | XMS_ITS | Encounter Summary ---
Author Organization [facility] Address [address] [place] [address] Care Team Providers Care Earth Mover Name Role Phone Alfreda Ray PA-C Primary Care Provider + Alfreda Ray PA-C Unavailable [phone] Katrin Orellana PA-C Unavailable [phone] Shanna Vang PA-C Unavailable [phone] Fransisco Eddy MD Unavailable [phone] Cristina Hsieh [facility] Unavailable [phone] Alfreda Ray PA-C Unavailable [phone] Cristina Hsieh [facility] Unavailable [phone] Dakota Tatum MD Unavailable [phone] Dakota Tatum MD Unavailable [phone] Srinivas Marie DO Unavailable [phone] Reason for Referral * Clinically Administered Medications (Routine) - Closed Specialty Diagnoses / Procedures Referred By Sharlene kessler Referred To Contact Diagnoses Complicated UTI (urinary tract infection) Procedures ZZC CEFTRIAXONE NA INJ /250MG Yamile James PA-C [address] [place] [address] Phone: tel: fax: Referral ID Status Reason Start Date Expiration Date Visits Re quested Visits Authorized [id number] Closed 06/15/2024 06/15/2025 1 1 OUT NANNY Reason for Visit * Reason Comments Urgent Care Urinary problem x 2 day, pain with urination,burning sensation, frequency,back pain, * Clinically Administered Medications (Routine) - Closed Specialty Diagnoses / Procedures Referred By Contac t Referred To Contact Diagnoses Complicated UTI (urinary tract infection) Procedures ZZC CEFTRIAXONE NA INJ /250MG Yamile James PA-C [address] [place] [address] Phone: tel: fax: Referral ID Status Reason Start Date Expiration Date Visits Re quested Visits Authorized [id number] Closed 06/15/2024 06/15/2025 1 1 Encounter Details Date Type Department Care Team (Late st Contact Info) Description 06/15/2024 2:05 PM LIVE OUT NANNY Office Visit [facility] [place] [address] [place] [address] Yamile James PA-C [address] [place] [address] [phone] Complicated UTI (urinary tract infection) (Primary Dx); [...] re latives? Once a week 03/15/2024 Attends Congregation Services Not on file 03/15 Active Member of Clubs or Organizations Not on f ile 03/15/2024 Attends Club or Organization Meetings Not on anu e 03/15/2024 Marital Status Not on file 03/15/2024 PHQ-2 Answer Date Recorded PHQ-2 Score 0 03/16/2024 [facility]at [facility] - Occupational Stress Questionnaire Answer Date Recorded [...] Sex Assigned at Female 08/17/2018 7:56 AM LIVE OUT NANNY Legal Sex Female 4:24 AM LIVE OUT NANNY Gender Identity Female 08/17/2018 7:56 AM LIVE OUT NANNY Sexual Orientation Straight 08/17/2018 7: 56 AM LIVE OUT NANNY documented as of this encounter Last Filed Vital Signs Vital Sign Reading Time Taken Comments Blood Pressure 136/70 06/15/2024 6:10 PM LIVE OUT NANNY Pulse 64 06/15/2024 4:35 PM LIVE OUT NANNY Temperature 36.8 C (98.2 F) 06/15/2024 4:35 PM LIVE OUT NANNY Respiratory Rate 18 06/15/2024 4:35 PM LIVE OUT NANNY Oxygen Saturation 97% 06/15/2024 4:35 PM LIVE OUT NANNY Inhaled Oxygen Concentration - - Weight 94.3 kg (208 lb) 06/15/2024 4:35 PM LIVE OUT NANNY Height - - Body Mass Index 38.04 05/04/2024 12:20 PM LIVE OUT NANNY documented in this encounter Patient Instructions * Patient Instructions* Yamile James PA-C - 06/15/2024 2:05 PM LIVE OUT NANNY You are being treated for kidney infection (complicated urinary tract infection) Take the medication prescribed as indicated Will follow-up if we need to change medication when urine culture results come back Follow-up in the emergency room if symptoms worsen any hour OUT NANNY OUT NANNY OUT NANNY * Attachments The following attachments cannot be sent through Care Everywhere. * Pyelonephritis (Guatemalan) documented in this encounter Progress Notes * [...] Ketones Urine 15 (A) Negative mg/dL Specific [place] Urine >=1.030 1.003 - 1.035 Blood Urine [...] Status --------- ------ CBC with platelets and d...[[id number]] Abnormal Final result Please view results for [...] factor (H) - Dr. Fransisco Eddy @ [facility] - on Humira & hydroxychloroquine 2022-08: Family [...] normal. Behavior: Behavior normal. Yamile James PA-C OUT NANNY documented in this encounter Plan of Treatment Upcoming Encounters Date Type Department Care Team (Late st Contact Info) Description 09/07/2024 10:00 AM CDT Office Visit [facility] [address] [place] [phone] Fransisco Eddy MD [address] [place] [address] 88 [place] [address] 09/18/2024 2:00 PM CDT Virtual Visit [facility] [address] [place] [address] 105 [place] [address] Shanna Vang PA-C [address] [place] [address] [phone] 03/29/2025 3:40 PM CDT Office Visit [address] [phone] Alfreda Ray PA-C [address] [place] [address] [phone] documented as of this encounter Procedures Procedure Name Priority Date/Time Associated Diagnosis Comments CBC WITH PLATELETS AND DIFFERENTIAL STAT 06/15/2024 5:14 PM LIVE OUT NANNY Flank pain CBC WITH PLATELETS & DIFFERENTIAL STAT 06/15/2024 5:14 PM LIVE OUT NANNY Flank pain CRP INFLAMMATION STAT 06/15/2024 5:14 PM LIVE OUT NANNY Flank pain BASIC METABOLIC PANEL STAT 06/15/2024 5:14 PM LIVE OUT NANNY Flank pain UA MACROSCOPIC WITH REFLEX TO MICRO AND CULTURE Routine 06/15/2024 2:15 PM LIVE OUT NANNY Dysuria URINE MICROSCOPIC EXAM Routine 06/15/2024 2:15 PM LIVE OUT NANNY Dysuria URINE CULTURE Routine 06/15/2024 2:15 PM LIVE OUT NANNY Dysuria documented in this encounter Results * (ABNORMAL) CBC with platelets and differential (06/15/2024 5:14 PM LIVE OUT NANNY) WBC Count 5.3 4.0 - 11.0 10e3/uL 06/15/2024 5:37 PM LIVE OUT NANNY [facility] RBC Count 3.23(L) 3.80 - 5.20 10e6/uL 06/15/2024 5:37 PM LIVE OUT NANNY [facility] Hemoglobin 10.9(L) 11.7 - 15.7 g/dL 06/15/2024 5:37 PM LIVE OUT NANNY [facility] Hematocrit 34.2(L) 35.0 - 47.0 % 06/15/2024 5:37 PM LIVE OUT NANNY [facility] MCV 106(H) 78 - 100 fL 06/15/2024 5:37 PM LIVE OUT NANNY [facility] MCH 33.7(H) 26.5 - 33.0 pg 06/15/2024 5:37 PM LIVE OUT NANNY [facility] MCHC 31.9 31.5 - 36.5 g/dL 06/15/2024 5:37 PM LIVE OUT NANNY [facility] RDW 13.3 10.0 - 15.0 % 06/15/2024 5:37 PM LIVE OUT NANNY [facility] Platelet Count 302 150 - 450 10e3/uL 06/15/2024 5:37 PM LIVE OUT NANNY [facility] % Neutrophils 65 % 06/15/2024 5:37 PM LIVE OUT N[facility]NY [facility] % Lymphocytes 26 % 06/15/2024 5:37 PM L[facility] OUT [facility] % Monocytes 8 % 06/15/2024 5:37 PM [facility] % Eosinophils 0 % 06/15/2024 5:37 PM [facility] % Basophils 0 % 06/15/2024 5:37 PM L[facility] OUT N[facility] % Immature Granulocytes 1 % 06/15/2024 5:37 PM LIVE OUT NANNY [facility] Absolute Neutrophils 3.4 1.6 - 8.3 10e3/uL 06/15/2024 5:37 PM L[facility] OUT N[facility]NY [facility] Absolute Lymphocytes 1.4 0.8 - 5.3 10e3/uL 06/15/2024 5:37 PM [facility] Absolute Monocytes 0.4 0.0 - 1.3 10e3/uL 06/15/2024 5:37 PM L[facility] OUT NANNY [facility] Absolute Eosinophils 0.0 0.0 - 0.7 10e3/uL 06/15/2024 5:37 PM [facility]NY [facility] Absolute Basophils 0.0 0.0 - 0.2 10e3/uL 06/15/2024 5:37 PM LIVE OUT NANNY [facility] Absolute Immature Granulocytes 0.0 <=0.4 10e3/uL 06/15/2024 5:37 PM LIVE OUT NANNY [facility] Blood BLOOD SPECIMEN / Unknown Venipuncture / Unknown 06/15/2024 5:14 PM LIVE OUT NANNY 06/15/2024 5:14 PM LIVE OUT NANNY us Yamile James PA-C LAB - BLOOD ORDERABLES Final R esult LABORATORY [facility] [address] [facility] (no room number, 1st floor of clinic) [place] [address], [facility] * (ABNORMAL) Basic metabolic panel (06/15/2024 5:14 PM LIVE OUT NANNY) Sodium 143 135 - 145 mmol/L 06/15/2024 7:09 PM [facility] Potassium 4.6 3.4 - 5.3 mmol/L 06/15/2024 7:09 PM [facility] Chloride 106 98 - 107 mmol/L 06/15/2024 7:09 PM [facility] Carbon Dioxide (CO2) 26 22 - 29 mmol/L 06/15/2024 7:09 PM [facility] Anion Gap 11 7 - 15 mmol/L 06/15/2024 7:09 PM [facility] Urea Nitrogen 26.3(H) 8.0 - 23.0 mg/dL 06/15/2024 7:09 PM [facility] Creatinine 1.18(H) 0.51 - 0.95 mg/dL 06/15/2024 7:09 PM LIVE OUT NANNY LABORATORY GFR Estimate 46(L) >60 mL/min/1.7 3m2 06/15/2024 7:09 PM LIVE OUT NANNY [facility] Comment:eGFR calculated usin 2020 CKD-EPI equation. Calcium 9.8 8.8 - 10.4 mg/dL 06/15/2024 7:09 PM LIVE OUT NANNY [facility] Comment:Reference intervals for this test were updated on 01/04/2024 to reflect our healthy population more accurately. There may be differences in the flagging of prior results with similar values performed with this method. Those prior results can be interpreted in the context of the updated reference intervals. Glucose 125(H) 70 - 99 mg/dL 06/15/2024 7:09 PM LIVE OUT NANNY [facility] Blood BLOOD SPECIMEN / Unknown Venipuncture / Unknown 06/15/2024 5:14 PM LIVE OUT NANNY 06/15/2024 5:14 PM LIVE OUT NANNY Yamile James IL-C LAB - BLOOD ORDERABLES Final R esult [facility] [address] [facility] (1st floor, no room number) [place] [phone] [place] [address] * CRP, inflammation (06/15/2024 5:14 PM LIVE OUT NANNY) Pathologist [facility] CRP Inflammation <3.00 <5.00 mg/L 06/15/20 7:09 PM LIVE OUT NANNY LABORATORY Blood BLOOD SPECIMEN / Unknown Venipuncture / Unknown 06/15/2024 5:14 PM LIVE OUT NANNY 06/15/2024 5:14 PM LIVE OUT NANNY Yamile Tapshot, [employer] PA-C LAB - BLOOD ORDERABLES Final R esult [facility] [address] Lab (1st floor, no room number) [place] [phone] * (ABNORMAL) Urine Culture (06/15/2024 2:15 PM LIVE OUT NANNY) Pathologist [facility] Culture 10,000-50,000 CFU/mL Enterobacter cloacae complex(A) 06/16/2024 11:19 PM LIVE OUT NANNY [facility] Urine URINE SPECIMEN OBTAINED BY CLEAN CATCH PROCEDURE / Unknown Non-blood Collection / Unknown 06/15/2024 2:15 PM LIVE OUT NANNY 06/15/2024 2:28 PM LIVE OUT NANNY Narrative Organism Antibiotic Method Susceptibility Enterobacter cloacae [...] ORDERABLES F inal Result [facility] Inf. Diseases Diag. Lab [address] [facility], Room [address] [place] [phone] * (ABNORMAL) Urine Microscopic Exam (06/15/2024 2:15 PM LIVE OUT NANNY) Pathologist [facility] Bacteria Urine Moderate( A) None Seen /HPF KAILYN 06/15/2024 2:35 PM LIVE OUT NANNY LABORATORY RBC Urine 2-5(A) 0-2 /HPF /HPF KAILYN 06/15/2024 2:35 PM LIVE OUT NANNY LABORATORY WBC Urine >100(A) 0-5 /HPF /HPF KAILYN 06/15/2024 2:35 PM LIVE OUT NANNY LABORATORY Squamous Epithelials Urine Few(A) None Seen /LPF KAILYN 06/15/2024 2:35 PM LIVE OUT NANNY LABORATORY Urine URINE SPECIMEN OBTAINED BY CLEAN CATCH PROCEDURE / Unknown Non-blood Collection / Unknown 06/15/2024 2:15 PM LIVE OUT NANNY 06/15/2024 2:15 PM LIVE OUT NANNY us Esteban Gant MD LAB - URINE ORDERABLES Final Res ult LABORATORY [facility] [address] [facility] Lab (no room number, 1st floor of clinic) [place] [address], [facility] * (ABNORMAL) UA Macroscopic with reflex to Microscopic and Culture - Clinic Collect (06/15/2024 2:15 PM LIVE OUT NANNY) Color Urine Yellow Colorless, Straw, Light Yellow, Yellow 06/15/2024 2:28 PM LIVE OUT NANNY LABORATORY Appearance Urine Clear Clear 06/15/20 2:28 PM LIVE OUT NANNY LABORATORY Glucose Urine Negative Negative mg/dL 06/15/2024 2:28 PM LIVE OUT NANNY LABORATORY Bilirubin Urine Small(A) Negative 2:28 PM LIVE OUT NANNY LABORATORY Ketones Urine 15(A) Negative mg/dL 06/15/2024 2:28 PM LIVE OUT NANNY LABORATORY Specific [place] Urine >=1.030 1.003 - 1.035 06/15/2024 2:28 PM LIVE OUT NANNY LABORATORY Blood Urine Trace(A) Negative 06/15/2024 2:28 PM LIVE OUT NANNY LABORATORY pH Urine 5.5 5.0 - 7.0 06/15/2024 2:28 PM LIVE OUT NANNY LAB[facility]ORY Protein Albumin Urine 100(A) Negative mg/dL 06/15/2024 2:28 PM LIVE OUT NANNY LABORATORY Urobilinogen Urine 0.2 0.2, 1.0 E.U./dL 06/15/2024 2:28 PM LIVE OUT NANNY LABORATORY Nitrite Urine Negative Negative 06/15/2024 2:28 PM LIVE OUT NANNY LABORATORY Leukocyte Esterase Urine Moderate(A) Negative 06/15/2024 2:28 PM LIVE OUT NANNY [facility] Urine URINE SPECIMEN OBTAINED BY CLEAN CATCH PROCEDURE / Unknown Non-blood Collection / Unknown 06/15/2024 2:15 PM LIVE OUT NANNY 06/15/2024 2:15 PM LIVE OUT NANNY us Esteban Gant MD LAB - URINE ORDERABLES Final Res ult LABORATORY [facility] [address] [facility] Lab (no room number, 1st floor of clinic) [place] [address], [facility] documented in this encounter Visit [...] for clinic use $Given 06/15/2024 5:59 PM LIVE OUT NANNY 1 g Right Gluteus Ethan documented in this encounter Additional Health Concerns Assessment Noted Time PHQ-9 Depression Total Score: 5 03/09/20 23 10:57 AM CDT documented as of this encounter Care Teams Earth Mover Relationship Specialty Start Date End Date Alfreda Ray PA-C [address] [place] [address] [phone] PCP - General Family Medicine 12/30/21 Alfreda Ray PA-C [address] [place] [address] Referring Physician Family Medicine 12/31/21 Katrin Orellana PA-C [address] [place] [address] Physician Gun Tester Dermatology 12/31/21 Shanna Vang PA-C [address] [place] [address] Assigned Cancer Care Provider 01/10/22 Fransisco Eddy MD [address] [place] [address] Assigned Rheumatology Provider 05/09/22 Cristina Hsieh [facility] [address] [address] Pharmacist Pharmacist 09/07/22 Alfreda Ray PA-C [address] [place] [address] 915322 Assigned PCP 08/29/22 Cristina Hsieh [facility] [address] [place] [address] Assigned MTM Pharmacist 09/26/22 Dakota Tatum MD [address] [place] [address] Cardiovascular Disease 03/25/23 Dakota Tatum MD [address] [place] [address] 017705 Assigned Heart and Vascular Provider 05/01/23 [place] [address] [facility] [address] Assigned Musculoskeletal Provider 04/12/24 documented as of this encounter
--- OUTSIDE RECORDS SUMMARY | 2024-07-28 14:34 | XMS_ITS | Encounter Summary ---
Author Organization [facility] Address [address] [place] [address] Care Team Providers Care Data Analysis Manager Name Role Phone Alfreda Ray PA-C Primary Care Provider + Alfreda Ray PA-C Unavailable Katrin Orellana PA-C Unavailable [phone] Shanna Vang PA-C Unavailable [phone] Fransisco Eddy MD Unavailable Cristina Hsieh [facility] Unavailable Alfreda Ray PA-C Unavailable [phone] Cristina Hsieh [facility] Unavailable Dakota Tatum MD Unavailable [phone] Dakota Tatum MD Unavailable [phone] Srinivas Marie DO Unavailable [phone] Encounter Details Date Type Department Care Team (Late st Contact Info) Description 06/07/2024 MyC Medical Advice [address] [address] Alfreda Ray PA-C [address] [place] [address] Social History Tobacco Use Types Packs/Day [...] re latives? Once a week 03/15/2024 Attends [employer] Services Not on file 03/15 Active Member of Clubs or Organizations Not on f ile 03/15/2024 Attends Club or Organization Meetings Not on anu e 03/15/2024 Marital Status Not on file 03/15/2024 PHQ-2 Answer Date Recorded PHQ-2 Score 0 03/16/2024 [facility] of Occupat ional Health - Occupational Stress [...] Sex Assigned at Female 08/17/2018 7:56 AM ENTERPRISE ARCHITECT MANAGER Legal Sex Female 4:24 AM ENTERPRISE ARCHITECT MANAGER Gender Identity Female 08/17/2018 7:56 AM ENTERPRISE ARCHITECT MANAGER Sexual Orientation Straight 08/17/2018 7: 56 AM ENTERPRISE ARCHITECT MANAGER documented as of this encounter Plan of Treatment Upcoming Encounters Date Type Department Care Team (Late st Contact Info) Description 09/07/2024 10:00 AM CDT Office Visit [facility] [address] [place] [phone] Fransisco Eddy MD [address] [place] [address] [phone] 09/18/2024 2:00 PM CDT Virtual Visit [facility] [address] [place] [address] 105 [place] [address] Shanna Vang, PAFilemonC [address] [place] [address] 03/29/2025 3:40 PM CDT Office Visit [address] [phone] Alfreda Ray PA-C [address] [place] [address] [phone] documented as of this encounter Visit Diagnoses Not on filedocumented in this encounter Additional Health Concerns Assessment Noted Time PHQ-9 Depression Total Score: 5 03/09/20 23 10:57 AM CDT documented as of this encounter Care Teams Data Analysis Manager Relationship Specialty Start Date End Date Alfreda Ray PA-C [address] [place] [address] PCP - General Family Medicine 12/30/21 Alfreda Ray PA-C [address] [place] [address] Referring Physician Family Medicine 12/31/21 Katrin Orellana PA-C [address] [place] [address] 98 [place], [place] 664595 Physician Group Fitness Instructor Dermatology 12/31/21 Shanna Vang PA-C [address] [place], [place] 709044 Assigned Cancer Care Provider 01/10/22 Fransisco Eddy MD [address] [place] [address] 88 [place], [place] 170185 Assigned Rheumatology Provider 05/09/22 Cristina Hsieh [facility] [address] [place] [address] [place] [address] Pharmacist Pharmacist 09/07/22 Alfreda Ray PA-C [address] [place] [address] [place] [address] Assigned PCP 08/29/22 Cristina Hsieh, [facility] [address] [address] Assigned MTM Pharmacist 09/26/22 Dakota Tatum MD [address] [place] [address] Cardiovascular Disease 03/25/23 Dakota Tatum MD [address] [place] [address] Assigned Heart and Vascular Provider 05/01/23 [place] [address] [address] [facility], [facility] [address] [place] [address] Assigned Musculoskeletal Provider 04/12/24 documented as of this encounter
--- OUTSIDE RECORDS SUMMARY | 2024-07-28 14:34 | XMS_ITS | Encounter Summary ---
Author Organization [facility] Address [address] [place] [address] Care Team Providers Care Threat Monitoring Analyst Name Role Phone Alfreda Ray PA-C Primary Care Provider + Alfreda Ray PA-C Unavailable [phone] Katrin Orellana PA-C Unavailable Shanna Vang-C Unavailable [phone] Fransisco Eddy MD Unavailable [phone] Cristina Hsieh [facility] Unavailable Alfreda Ray PA-C Unavailable [phone] Cristina Hsieh [facility] Unavailable [phone] Dakota Tatum MD Unavailable [phone] Dakota Tatum MD Unavailable [phone] Srinivas Marie DO Unavailable [phone] Encounter Details Date Type Department Care [...] Answer Date Recorded PHQ-2 Score 0 03/16/2024 [facility] of Occupat ional Health - Occupational Stress [...] Sex Assigned at Female 08/17/2018 7:56 AM JACQUARD CARD CUTTER Legal Sex Female 4:24 AM JACQUARD CARD CUTTER Gender Identity Female 08/17/2018 7:56 AM JACQUARD CARD CUTTER Sexual Orientation Straight 08/17/2018 7: 56 AM JACQUARD CARD CUTTER documented as of this encounter Plan of Treatment Upcoming Encounters Date Type Department Care Team (Late st Contact Info) Description 09/07/2024 10:00 AM CDT Office Visit [facility] [address] [phone] Fransisco Eddy MD [address] [place] [address] 09/18/2024 2:00 PM CDT Virtual Visit [facility] [place] [address] 105 [place] [address] Shanna Vang PA-C [address] [address] 03/29/2025 3:40 PM CDT Office Visit [address] [place] [phone] Alfreda Ray PA-C [address] [place] [address] 230682 documented as of this encounter Visit Diagnoses Not on filedocumented in this encounter Additional Health Concerns Assessment Noted Time PHQ-9 Depression Total Score: 5 03/09/20 10:57 AM CDT documented as of this encounter Care Teams Threat Monitoring Analyst Relationship Specialty Start Date End Date Alfreda Ray PA-C [address] [place] [address] PCP - General Family Medicine 12/30/21 Alfreda Ray PA-C [address] [place] [address] Referring Physician Family Medicine 12/31/21 Katrin Orellana PA-C [address] [place] [address] Physician Fish Pitcher Dermatology 12/31/21 Shanna Vang PA-C [facility] [place] [address] Assigned Cancer Care Provider 01/10/22 Fransisco Eddy MD [address] [place] [address] Assigned Rheumatology Provider 05/09/22 Cristina Hsieh [facility] [address] [facility] [place] [address] Pharmacist Pharmacist 09/07/22 Alfreda Ray PA-C [address] [place] [address] Assigned PCP 08/29/22 Cristina Hsieh [facility] [address] [phone] Assigned MTM Pharmacist 09/26/22 Dakota Tatum MD [address] [place] [address] Cardiovascular Disease 03/25/23 Dakota Tatum MD [address] [place] [address] Assigned Heart and Vascular Provider 05/01/23 [place] [address] [address], [address] [address] Assigned Musculoskeletal Provider 04/12/24 documented as of this encounter
--- OUTSIDE RECORDS SUMMARY | 2024-07-28 14:34 | XMS_ITS | Clinical Summary ---
Author Organization [facility] Address [address] [place] [address] Care Team Providers Care Auto Body Technician Name Role Phone Alfreda Ray PA-C Primary Care Provider + Alfreda Ray PA-C Unavailable [phone] Katrin Orellana PA-C Unavailable Shanna Vang PA-C Unavailable [phone] Fransisco Eddy MD Unavailable Cristina Hsieh [facility] Unavailable [phone] Alfreda Ray PA-C Unavailable [phone] Cristina Hsieh [facility] Unavailable Dakota Tatum MD Unavailable [phone] Dakota Tatum MD Unavailable [phone] Srinivas Marie DO Unavailable [phone] Allergies Active Allergy Reactions Criticality Noted [...] factor (H) - Dr. Fransisco Eddy @ [facility] - on Humira & hydroxychloroquine 08/27/2022 Family [...] 12/30/2021 Overview (09/25/2019): Patient is followed by [facility] for ongoing prescription of pain medication. [...] Total Score(s): No flowsheet data found. Last [facility] website verification: Done 09/25/2019 [email or web address] Anxiety 04/13/2014 12/30/2021 HTN, goal below 140/90 [...] Type Department Care Team Description 07/04/2024 Telephone [facility] [address] [address] Fransisco Eddy MD Prior Auth - Medication (Rinvoq PA and FPAP renewal) 07/04/2024 MyC Medical Advice [facility] [address] [place] [address] 1st [place] [address] [facility] 06/17/2024 Orders Only [address] [phone] Yamile James PA-C Complicated UTI (urinary tract infection) (Primary Dx) 06/15/2024 2:05 PM DIRECTOR OF PROFESSIONAL SERVICES Office Visit [facility] [place] [address] [place] [phone] Yamile James PA-C Complicated UTI (urinary tract infection) (Primary Dx); Dysuria; Flank pain 06/15/2024 Travel 06/07/2024 3:40 PM DIRECTOR OF PROFESSIONAL SERVICES E-Visit [address] [phone] Alfreda Ray PA-C Derm Problem (Entered automatically based ... 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 Once a week 03/15/2024 Attends [employer] Services Not on file 03/15 Active Member of Clubs or Organizations Not on f ile 03/15/2024 Attends Club or Organization Meetings Not on anu e 03/15/2024 Marital Status Not on file 03/15/2024 PHQ-2 Answer Date Recorded PHQ-2 Score 0 03/16/2024 [facility] [place] of Occupat ional Health - Occupational Stress [...] Assigned at Female 08/17/2018 7:56 AM DIRECTOR OF PROFESSIONAL SERVICES Legal Sex Female 4:24 AM DIRECTOR OF PROFESSIONAL SERVICES Gender Identity Female 08/17/2018 7:56 AM DIRECTOR OF PROFESSIONAL SERVICES Sexual Orientation Straight 08/17/2018 7: 56 AM DIRECTOR OF PROFESSIONAL SERVICES Last Filed Vital Signs Vital Sign Reading Time Taken Comments Blood Pressure 136/70 06/15/2024 6:10 PM DIRECTOR OF PROFESSIONAL SERVICES Pulse 64 06/15/2024 4:35 PM DIRECTOR OF PROFESSIONAL SERVICES Temperature 36.8 C (98.2 F) 06/15/2024 4:35 PM DIRECTOR OF PROFESSIONAL SERVICES Respiratory Rate 18 06/15/2024 4:35 PM DIRECTOR OF PROFESSIONAL SERVICES Oxygen Saturation 97% 06/15/2024 4:35 PM DIRECTOR OF PROFESSIONAL SERVICES Inhaled Oxygen Concentration - - Weight 94.3 kg (208 lb) 06/15/2024 4:35 PM DIRECTOR OF PROFESSIONAL SERVICES Height 157.5 cm (5' 2) 05/04/2024 12:20 PM DIRECTOR OF PROFESSIONAL SERVICES Body Mass Index 38.04 05/04/2024 12:20 PM DIRECTOR OF PROFESSIONAL SERVICES Plan of Treatment Upcoming Encounters Date Type Department Care Team (Late st Contact Info) Description 09/07/2024 10:00 AM CDT Office Visit [facility] [place] [address] [facility] [address] [place] [phone] Fransisco Eddy MD [address] [facility] [address] [place] [address] 09/18/2024 2:00 PM CDT Virtual Visit [facility] [address] [place] [phone] Shanna Vang, PA-C [address] [place] [phone] 03/29/2025 3:40 PM CDT Office Visit [address] [place] [phone] Alfreda Ray, PARobinson [address] [place] [phone] Health Maintenance Due Date Last Done Comments [...] PLATELETS & DIFFERENTIAL STAT 06/15/2024 5:14 PM DIRECTOR OF PROFESSIONAL SERVICES Flank pain CBC WITH PLATELETS AND DIFFERENTIAL STAT 06/15/2024 5:14 PM DIRECTOR OF PROFESSIONAL SERVICES Flank pain BASIC METABOLIC PANEL STAT 06/15/2024 5:14 PM DIRECTOR OF PROFESSIONAL SERVICES Flank pain CRP INFLAMMATION STAT 06/15/2024 5:14 PM DIRECTOR OF PROFESSIONAL SERVICES Flank pain URINE CULTURE Routine 06/15/2024 2:15 PM DIRECTOR OF PROFESSIONAL SERVICES Dysuria URINE MICROSCOPIC EXAM Routine 06/15/2024 2:15 PM DIRECTOR OF PROFESSIONAL SERVICES Dysuria UA MACROSCOPIC WITH REFLEX TO MICRO AND CULTURE Routine 06/15/2024 2:15 PM DIRECTOR OF PROFESSIONAL SERVICES Dysuria ALBUMIN RANDOM URINE QUANTITATIVE Routine 03/16/2024 [...] COLONOSCOPY - HIM SCAN 08/26/2015 12:00 AM DIRECTOR OF PROFESSIONAL SERVICES from Last 3 Months or Most Recently Relevant to Health Maintenance Results * (ABNORMAL) CBC with platelets and differential (06/15/2024 5:14 PM DIRECTOR OF PROFESSIONAL SERVICES) WBC Count 5.3 4.0 - 11.0 10e3/uL 06/15/2024 5:37 PM DIRECTOR OF PROFESSIONAL SERVICES [facility] RBC Count 3.23(L) 3.80 - 5.20 10e6/uL 06/15/2024 5:37 PM DIRECTOR OF PROFESSIONAL SERVICES [facility] Hemoglobin 10.9(L) 11.7 - 15.7 g/dL 06/15/2024 5:37 PM DIRECTOR OF PROFESSIONAL SERVICES [facility] Hematocrit 34.2(L) 35.0 - 47.0 % 06/15/2024 5:37 PM DIRECTOR OF PROFESSIONAL SERVICES [facility] MCV 106(H) 78 - 100 fL 06/15/2024 5:37 PM DIRECTOR OF PROFESSIONAL SERVICES [facility] MCH 33.7(H) 26.5 - 33.0 pg 06/15/2024 5:37 PM DIRECTOR OF PROFESSIONAL SERVICES [facility] MCHC 31.9 31.5 - 36.5 g/dL 06/15/2024 5:37 PM DIRECTOR OF PROFESSIONAL SERVICES [facility] RDW 13.3 10.0 - 15.0 % 06/15/2024 5:37 PM DIRECTOR OF PROFESSIONAL SERVICES [facility] Platelet Count 302 150 - 450 10e3/uL 06/15/2024 5:37 PM DIRECTOR OF PROFESSIONAL SERVICES [facility] % Neutrophils 65 % 06/15/2024 5:37 PM DIRECTOR OF PROFESSIONAL SERVICES [facility] % Lymphocytes 26 % 06/15/2024 5:37 PM DIRECTOR OF PROFESSIONAL SERVICES [facility] % Monocytes 8 % 06/15/2024 5:37 PM DIRECTOR OF PROFESSIONAL SERVICES [facility] % Eosinophils 0 % 06/15/2024 5:37 PM DIRECTOR OF PROFESSIONAL SERVICES [facility] % Basophils 0 % 06/15/2024 5:37 PM DIRECTOR OF PROFESSIONAL SERVICES [facility] % Immature Granulocytes 1 % 06/15/2024 5:37 PM DIRECTOR OF PROFESSIONAL SERVICES [facility] Absolute Neutrophils 3.4 1.6 - 8.3 10e3/uL 06/15/2024 5:37 PM DIRECTOR OF PROFESSIONAL SERVICES [facility] Absolute Lymphocytes 1.4 0.8 - 5.3 10e3/uL 06/15/2024 5:37 PM DIRECTOR OF PROFESSIONAL SERVICES [facility] Absolute Monocytes 0.4 0.0 - 1.3 10e3/uL 06/15/2024 5:37 PM DIRECTOR OF PROFESSIONAL SERVICES [facility] Absolute Eosinophils 0.0 0.0 - 0.7 10e3/uL 06/15/2024 5:37 PM DIRECTOR OF PROFESSIONAL SERVICES [facility] Absolute Basophils 0.0 0.0 - 0.2 10e3/uL 06/15/2024 5:37 PM DIRECTOR OF PROFESSIONAL SERVICES [facility] Absolute Immature Granulocytes 0.0 <=0.4 10e3/uL 06/15/2024 5:37 PM DIRECTOR OF PROFESSIONAL SERVICES LABORATORY Blood BLOOD SPECIMEN / Unknown Venipuncture / Unknown 06/15/2024 5:14 PM DIRECTOR OF PROFESSIONAL SERVICES 06/15/2024 5:14 PM DIRECTOR OF PROFESSIONAL SERVICES Yamile James PA-C LAB - BLOOD ORDERABLES Final R esult LABORATORY [facility] [address] [facility] Lab (no room number, 1st floor of clinic) [place] [address], [facility] * CRP, inflammation (06/15/2024 5:14 PM DIRECTOR OF PROFESSIONAL SERVICES) [facility] CRP Inflammation <3.00 <5.00 mg/L 06/15/20 7:09 PM DIRECTOR OF PROFESSIONAL SERVICES LABORATORY Blood BLOOD SPECIMEN / Unknown Venipuncture / Unknown 06/15/2024 5:14 PM DIRECTOR OF PROFESSIONAL SERVICES 06/15/2024 5:14 PM DIRECTOR OF PROFESSIONAL SERVICES Yamile BORRERO-C LAB - BLOOD ORDERABLES Final R esult LABORATORY [facility] [address] Lab (1st floor, no room number) [place] [address], [facility] * (ABNORMAL) Basic metabolic panel (06/15/2024 5:14 PM DIRECTOR OF PROFESSIONAL SERVICES) Sodium 143 135 - 145 mmol/L 06/15/2024 7:09 PM [facility] Potassium 4.6 3.4 - 5.3 mmol/L 06/15/2024 7:09 PM [facility] Chloride 106 98 - 107 mmol/L 06/15/2024 7:09 PM [facility] Carbon Dioxide (CO2) 26 22 - 29 mmol/L 06/15/2024 7:09 PM [facility] Anion Gap 11 7 - 15 mmol/L 06/15/2024 7:09 PM [facility] Urea Nitrogen 26.3(H) 8.0 - 23.0 mg/dL 06/15/2024 7:09 PM [facility] Creatinine 1.18(H) 0.51 - 0.95 mg/dL 06/15/2024 7:09 PM [facility] GFR Estimate 46(L) >60 mL/min/1.7 3m2 06/15/2024 7:09 PM [facility] Comment:eGFR calculated usin 2020 CKD-EPI equation. Calcium 9.8 8.8 - 10.4 mg/dL 06/15/2024 7:09 PM [facility] Comment:Reference intervals for this test were updated on 01/04/2024 to reflect our healthy population more accurately. There may be differences in the flagging of prior results with similar values performed with this method. Those prior results can be interpreted in the context of the updated reference intervals. Glucose 125(H) 70 - 99 mg/dL 06/15/2024 7:09 PM [facility] Blood BLOOD SPECIMEN / Unknown Venipuncture / Unknown 06/15/2024 5:14 PM DIRECTOR OF PROFESSIONAL SERVICES 06/15/2024 5:14 PM DIRECTOR OF PROFESSIONAL SERVICES us Yamile James PA-C LAB - BLOOD ORDERABLES Final R esult LABORATORY [facility] [address] [facility] Lab (1st floor, no room number) [place] [address], [facility] * (ABNORMAL) UA Macroscopic with reflex to Microscopic and Culture - Clinic Collect (06/15/2024 2:15 PM DIRECTOR OF PROFESSIONAL SERVICES) Color Urine Yellow Colorless, Straw, Light Yellow, Yellow 06/15/2024 2:28 PM DIRECTOR OF PROFESSIONAL SERVICES LABORATORY Appearance Urine Clear Clear 06/15/20 2:28 PM DIRECTOR OF PROFESSIONAL SERVICES LABORATORY Glucose Urine Negative Negative mg/dL 06/15/2024 2:28 PM DIRECTOR OF PROFESSIONAL SERVICES LABORATORY Bilirubin Urine Small(A) Negative 2:28 PM DIRECTOR OF PROFESSIONAL SERVICES LABORATORY Ketones Urine 15(A) Negative mg/dL 06/15/2024 2:28 PM DIRECTOR OF PROFESSIONAL SERVICES LABORATORY Specific [place] Urine >=1.030 1.003 - 1.035 06/15/2024 2:28 PM DIRECTOR OF PROFESSIONAL SERVICES LABORATORY Blood Urine Trace(A) Negative 06/15/2024 2:28 PM DIRECTOR OF PROFESSIONAL SERVICES LABORATORY pH Urine 5.5 5.0 - 7.0 06/15/2024 2:28 PM DIRECTOR OF PROFESSIONAL SERVICES LABORATORY Protein Albumin Urine 100(A) Negative mg/dL 06/15/2024 2:28 PM DIRECTOR OF PROFESSIONAL SERVICES LABORATORY Urobilinogen Urine 0.2 0.2, 1.0 E.U./dL 06/15/2024 2:28 PM DIRECTOR OF PROFESSIONAL SERVICES LABORATORY Nitrite Urine Negative Negative 06/15/2024 2:28 PM DIRECTOR OF PROFESSIONAL SERVICES LABORATORY Leukocyte Esterase Urine Moderate(A) Negative 06/15/2024 2:28 PM DIRECTOR OF PROFESSIONAL SERVICES LABORATORY Urine URINE SPECIMEN OBTAINED BY CLEAN CATCH PROCEDURE / Unknown Non-blood Collection / Unknown 06/15/2024 2:15 PM DIRECTOR OF PROFESSIONAL SERVICES 06/15/2024 2:15 PM DIRECTOR OF PROFESSIONAL SERVICES us Esteban Gant MD LAB - URINE ORDERABLES Final Res ult LABORATORY [facility] [place] [facility] [address] [facility] Lab (no room number, 1st floor of clinic) [place] [address], [facility] * (ABNORMAL) Urine Microscopic Exam (06/15/2024 2:15 PM DIRECTOR OF PROFESSIONAL SERVICES) Bacteria Urine Moderate( A) None Seen /HPF KAILYN 06/15/2024 2:35 PM DIRECTOR OF PROFESSIONAL SERVICES LABORATORY RBC Urine 2-5(A) 0-2 /HPF /HPF KAILYN 06/15/2024 2:35 PM DIRECTOR OF PROFESSIONAL SERVICES LABORATORY WBC Urine >100(A) 0-5 /HPF /HPF KAILYN 06/15/2024 2:35 PM DIRECTOR OF PROFESSIONAL SERVICES LABORATORY Squamous Epithelials Urine Few(A) None Seen /LPF KAILYN 06/15/2024 2:35 PM DIRECTOR OF PROFESSIONAL SERVICES [facility] Urine URINE SPECIMEN OBTAINED BY CLEAN CATCH PROCEDURE / Unknown Non-blood Collection / Unknown 06/15/2024 2:15 PM DIRECTOR OF PROFESSIONAL SERVICES 06/15/2024 2:15 PM DIRECTOR OF PROFESSIONAL SERVICES us Esteban Gant MD LAB - URINE ORDERABLES Final Res ult LABORATORY [facility] [address] [facility] Lab (no room number, 1st floor of clinic) [place] [address], [facility] * (ABNORMAL) Urine Culture (06/15/2024 2:15 PM DIRECTOR OF PROFESSIONAL SERVICES) Culture 10,000-50,000 CFU/mL Enterobacter cloacae complex(A) 06/16/2024 11:19 PM DIRECTOR OF PROFESSIONAL SERVICES [facility] Urine URINE SPECIMEN OBTAINED BY CLEAN CATCH PROCEDURE / Unknown Non-blood Collection / Unknown 06/15/2024 2:15 PM DIRECTOR OF PROFESSIONAL SERVICES 06/15/2024 2:28 PM DIRECTOR OF PROFESSIONAL SERVICES Narrative Organism Antibiotic Method Susceptibility Enterobacter cloacae [...] ORDERABLES F inal Result [facility] Inf. Diseases Diag. Lab [address] [facility], [address] [place] [address] * Albumin Random Urine Quantitative with Creat [...] control, and institution of therapy with an wahqbvsefhu-karhxcanut-rniflw (JUANCARLOS) inhibitor (if the patient can tolerate it). Urine URINE SPECIMEN / Unknown Non-blood Collection / Unknown 03/16/2024 3:16 PM CDT 03/16/2024 3:16 PM CDT us Alfreda Ray PA-C LAB - URINE ORDERABLES F inal Result [facility]ATORY [facility] [facility] [address] [facility], [address] [place] [address] * (ABNORMAL) Lipid panel reflex to [...] BLOOD ORDERABLES F inal Result [facility]AT[facility] [address] [facility], [address] [place] [address], [facility] * (ABNORMAL) HEMOGLOBIN A1C (03/16/2024 3:09 PM CDT) Pathologist [facility] Estimated Average Glucose 120(H) <117 mg/dL 03/16/2024 [...] BLOOD ORDERABLES F inal Result RV LABORATORY [facility] [place] [facility] [address] [facility] Lab (no room number, 1st floor of clinic) [place] [address], [facility] * (ABNORMAL) Comprehensive metabolic panel (BMP + Alb, Alk Phos, ALT, AST, Total. Bili, TP) (03/16/2024 3:09 PM CDT) Pathologist [facility] Sodium 143 135 - 145 mmol/L 03/17/2024 [...] BLOOD ORDERABLES F inal Result [facility] [address] [facility], [address] [place] [address], [facility] * Vitamin B12 (03/16/2024 3:09 PM CDT) Vitamin B12 869 232 - 1,245 pg/mL 03/17/2024 7:42 PM CDT [facility] Blood BLOOD SPECIMEN / Unknown Venipuncture / Unknown 03/16/2024 3:09 PM CDT 03/16/2024 3:09 PM CDT us Alfreda Ray PA-C LAB - BLOOD ORDERABLES F inal Result U LABORATORY [facility] [address] [facility], [address] [place] [address] * DX Hip/Pelvis/Spine w Lateral (09/30/2020 12:30 PM CDT) Anatomical Region Laterality Modality Dexa Bone Mineral Den sity Narrative 10/04/2020 1:35 PM CDT [place] [address] 09/30/2020 PATIENT: Alexandria Bradshaw CHART: [id number] : 1940 AGE: [age] year old SEX: female REFERRING PROVIDER: Kelly Haley MD PROCEDURE: Bone density scanning was performed using DXA technology of the lumbar spine and hip. Scanning was performed on a MC10 scanner. Reporting is completed in the form [...] to another DXA performed on the same MC10 machine on 12/10/2014. LATERAL VERTEBRAL ASSESSMENT Procedure: Vertebral fracture assessment was performed in the lateral decubitus position using a D2SigCribspot densitometer. Indications for VFA: T-score of -1.0 [...] COLONOSCOPY - HIM SCAN (08/26/2015 12:00 AM DIRECTOR OF PROFESSIONAL SERVICES) 08/26/2015 Provider Outside PROCEDURES Final Result from Last 3 Months or Most Recently Relevant to Health Maintenance Insurance [facility] MEDICARE ADVANTAGE [facility] MEDICARE ADVANTAGE * Guarantor: MichaelAlexandria gross [employer] Account Type Relation to Patient Date of Phone Billing Address Medication Therapy Self 1940 [address] [place] [address] [facility] MEDICARE ADVANTAGE Advance Directives For more information, please contact: [phone] * Full Code (Latest Code Status on File) Date Activated Date Inactivated Comments 12/08/2021 8:37 PM 12/09/2021 3:06 PM All basic an d advanced life-sustaining interventions are performed as appropriate Question Answer Comments Code status determined by: Discussion with galina nt/ legal decision maker Care Teams Auto Body Technician Relationship Specialty Start Date End Date Alfreda Ray PA-C [address] [place] [address] PCP - General Family Medicine 12/30/21 Alfreda Ray PA-C [address] [place] [address] Referring Physician Family Medicine 12/31/21 Katrin Orellana PA-C [address] [place] [address] Physician Management Development Specialist Dermatology 12/31/21 Shanna Vang PA-C [address] [place] [address] Assigned Cancer Care Provider 01/10/22 Fransisco Eddy MD [address] [place] [address] Assigned Rheumatology Provider 05/09/22 Cristina Hsieh [facility] [address] [place] [address] [place] [address] Pharmacist Pharmacist 09/07/22 Alfreda Ray PA-C [address] [place] [address] Assigned PCP 08/29/22 Cristina Hsieh [facility] [address] [phone] Assigned MTM Pharmacist 09/26/22 Dakota Tatum MD [address] [place] [address] Cardiovascular Disease 03/25/23 Dakota Tatum MD 6 [place] [address] Assigned Heart and Vascular Provider 05/01/23 [place] [address] [address] [place], [address] [address] Assigned Musculoskeletal Provider 04/12/24
--- OUTSIDE RECORDS SUMMARY | 2024-07-28 14:34 | XMS_ITS | Encounter Summary ---
Author Organization [facility] Address [address] [place] [address] Care Team Providers Care Dolphin Researcher Name Role Phone Alfreda Ray PA-C Primary Care Provider + Alfreda Ray PA-C Unavailable [phone] Katrin Orellana PA-C Unavailable Shanna Vang PA-C Unavailable [phone] Fransisco Eddy MD Unavailable Cristina Hsieh [facility] Unavailable Alfreda Ray PA-C Unavailable Cristina Hsieh [facility] Unavailable Dakota Tatum MD Unavailable [phone] Dakota Tatum MD Unavailable [phone] Srinivas Marie DO Unavailable [phone] Encounter Details Date Type Department Care Team (Late st Contact Info) Description 06/17/2024 [facility] [address] [place] [phone] Yamile James PA-C [address] [place] [address] [phone] Complicated UTI (urinary tract infection) (Primary Dx) [...] re latives? Once a week 03/15/2024 Attends Buddhist Services Not on file 03/15 Active Member of Clubs or Organizations Not on f ile 03/15/2024 Attends Club or Organization Meetings Not on anu e 03/15/2024 Marital Status Not on file 03/15/2024 PHQ-2 Answer Date Recorded PHQ-2 Score 0 03/16/2024 [facility] [place] of Occupat ional Health - Occupational Stress [...] at Female 08/17/2018 7:56 AM DIRECTOR OF STUDENT AFFAIRS Legal Sex Female 4:24 AM DIRECTOR OF STUDENT AFFAIRS Gender Identity Female 08/17/2018 7:56 AM DIRECTOR OF STUDENT AFFAIRS Sexual Orientation Straight 08/17/2018 7: 56 AM DIRECTOR OF STUDENT AFFAIRS documented as of this encounter Plan of Treatment Upcoming Encounters Date Type Department Care Team (Late st Contact Info) Description 09/07/2024 10:00 AM CDT Office Visit [facility] [address] [place] [phone] Fransisco Eddy MD [address] [place] [phone] 09/18/2024 2:00 PM CDT Virtual Visit [facility] [place] [address] [address] [place] [phone] Shanna Vang PA-C [address] [address] 03/29/2025 3:40 PM CDT Office Visit [address] [place] [phone] Alfreda Ray PA-C [address] [place] [address]442 documented as of this encounter Visit Diagnoses Diagnosis Complicated UTI (urinary tract infection)- Primary Urinary tract infection, site not specified documented in this encounter Additional Health Concerns Assessment Noted Time PHQ-9 Depression Total Score: 5 03/09/20 23 10:57 AM CDT documented as of this encounter Care Teams Dolphin Researcher Relationship Specialty Start Date End Date Alfreda Ray PA-C [address] [place] [address] [phone] PCP - General Family Medicine 12/30/21 Alfreda Ray PA-C [address] [place] [address] [phone] Referring Physician Family Medicine 12/31/21 Katrin Orellana PA-C [address] [place] [address] [address] [place], [place] 577[address] Physician Sheet Hanger Dermatology 12/31/21 Shanna Vang PA-C [address] [place], [place] [phone] Assigned Cancer Care Provider 01/10/22 Fransisco Eddy MD [address] [place] [address] [address] [place], [place] [phone] Assigned Rheumatology Provider 05/09/22 Cristina Hsieh, [facility] [address] [place] [address] LISBETH HERNANDEZ [address] Pharmacist Pharmacist 09/07/22 Alfreda Ray PA-C [address] [place] [address] Assigned PCP 08/29/22 Cristina Hsieh, [facility] [address] [facility] [address] [place] [address] Assigned MTM Pharmacist 09/26/22 Dakota Tatum MD [address] [place] [address] Cardiovascular Disease 03/25/23 Dakota Tatum MD [address] [place] [address] Assigned Heart and Vascular Provider 05/01/23 [place] [address] [place] , [facility] [address] [place] [address] Assigned Musculoskeletal Provider 04/12/24 documented as of this encounter
[2024-07-28 14:39] LABS: Basophils Absolute Auto 0.02 K/uL (0.00-0.30); Basophils Percent Auto 0.3 % (0.0-3.0); Eosinophils Absolute Auto 0.11 K/uL (0.00-0.50); Eosinophils Percent Auto 1.4 % (0.0-7.0); Hematocrit 35.6 % (33.0-51.0); Hemoglobin* 11.4 gm/dL (12.0-16.0); Lymphocytes Percent Auto 13.8 % (20-44); Mean Corpuscular HGB Conc 32 gm/dL (32-36); Mean Corpuscular Hemoglobin 33 pg (26-34); Mean Corpuscular Volume 102 fL (80-100); Monocytes Percent Auto 7.5 % (0.0-11.0); Platelet Count* 259 K/uL (140-440); RDW Coefficient of Variation % 12.7 % (11.5-15.5); White Blood Count* 7.88 K/uL (4.50-11.00)
[2024-07-28 14:40] LABS: Slide Review Reflex No
[2024-07-28 14:56] LABS: SARS Antigen* Negative (Negative)
[2024-07-28 15:25] LABS: Appearance Urine Clear (Clear); Bilirubin Urine Negative (Negative); Blood Urine Negative (Negative); Color Urine Yellow (Yellow); Glucose Urine Negative (Negative); Ketones Urine Trace (Negative); Leukocyte Esterase Urine Negative (Negative); Nitrite Urine Negative (Negative); Protein Urine Trace (Negative); Specific Gravity Urine 1.025 (1.000-1.030); Urobilinogen Urine 0.2 (0.2-1.0); pH Urine 5.5 (5.0-8.5)
[2024-07-28] MEDS: 0.9 % SODIUM CHLORIDE 500 ML 500 ML IV (15:28)
[2024-07-28 15:38] LABS: C Reactive Protein* < 0.5 mg/dL (0.5-1.0)
[2024-07-28 15:46] LABS: Troponin I* 0.02 ng/mL (0.01-0.04)
[2024-07-28 15:47] LABS: Amorphous Sediment Urine Moderate; Bacteria Urine Few; RBC Urine 0-2 (0-2); Squamous Epithelial Cell Urine Moderate (None-Few); WBC Urine 0-2 (0-5)
[2024-07-28 15:51] LABS: Alanine Aminotransferase* 13 U/L (4-35); Albumin* 4.1 g/dL (3.3-5.0); Alkaline Phosphatase* 55 U/L (40-150); Anion Gap 11 mEq/L (7-15); Aspartate Amino Transferase* 20 U/L (12-35); Bilirubin Direct* 0.3 mg/dL (0.0-0.5); Bilirubin Total* 0.8 mg/dL (0.1-1.5); Blood Urea Nitrogen* 24 mg/dL (7-30); Calcium* 9.7 mg/dL (8.4-10.6); Carbon Dioxide* 25 mmol/L (20-32); Chloride* 103 mmol/L (96-114); Creatine Kinase* 91 U/L (41-117); Creatinine* 0.9 mg/dL (0.5-1.5); Estimated Glomerular Filt Rate 64 ml/min; Glucose* 113 mg/dL (60-115); Potassium* 3.6 mmol/L (3.6-5.1); Sodium* 139 mmol/L (135-149); Total Protein* 6.5 g/dL (6.0-8.3)
--- NOTE | 2024-07-28 16:39 | CRLHL7_ITS ---
For Patients: As a result of the Century Cures Act, medical imaging exams and procedure reports are released immediately into your electronic medical record. You may view this report before your referring provider. If you have questions, please contact your health care provider. Indication: Fall. Pain. Technique: Two views of the right hip, single AP view of the pelvis. Comparison: Pelvis radiograph dated 03/01/2015. Findings/Impression: Limited evaluation secondary to patient body habitus. Very subtle cortical irregularity along the intertrochanteric region of the right femur, may reflect a minimally displaced fracture. Right femoroacetabular joint alignment is anatomic, no evidence of dislocation. Mild degenerative changes of the right hip. Vascular calcifications are noted. Dictated by Yane Fink MD @ 07/28/2024 6:08:04 PM (Electronically Signed)
[2024-07-28 17:49] LABS: Vitamin B12* 948 pg/mL (243-894)
--- NOTE | 2024-07-28 18:11 | P.IMHP_ITS ---
Hospitalist- H&P: HPI History of Present Illness Date Seen: 07/28/24 Chief complaint: Fell, hit head Narrative: Alexandria Bradshaw is a 84 year old female admitted to the hospital with weakness and falls at home. She was hospitalized here at the beginning of Jun with metabolic encephalopathy thought secondary to COVID illness. She clinically improved and was discharged to home with her . At home she has been continue to be quite weak. She has outpatient therapy at home and according to her therapist she is making no progress at improving her mobility and strength. Today she fell out of bed. She was reaching for something near the bed and fell to the floor. When she fell she hit her head her right chest wall and her left shoulder. She was too weak to get up. She laid on the floor for 4 hours until her came home. Her was on able to help her get up and so he called for the son to come and help. She also had a fall 2 days ago with similar circumstances. She has been walking with a walker at home. Her notes that she seems quite unstable and she is very weak legs and he is concerned that she is at risk for falling all the time. She specifically denies a new illness. She has minimal residual cough from her COVID infection. At the time of her last hospital stay she reported a small amount of blood in her sputum. That has resolved. She now has a persisting dry cough. She has no dyspnea. No upper respiratory symptoms. No with sore throat. No chest pain. Her activities not limited by dyspnea or chest pain. She is able to eat. No nausea or vomiting. No abdominal pain. Bowels have bee n normal. She has mild urinary incontinence which is chronic. No other urinary symptoms. Previously had a urine culture growing Enterobacter cloaca a. She was treated for that urinary infection. It is not clear that she had any benefit from the antibiotic treatment in terms of symptom relief. Review of Systems Narrative: She reports pain in the locations of her injury, primarily her right chest wall and to a lesser extent her left shoulder. She also reports some right hip/groin area pain and a little bit of headache today. No other symptoms of illness. Profound weakness and unsteadiness on her feet as noted above. [facility] Medical History (Updated 07/28/24 @ 18:40 by Raleigh Quinones MD) Stroke ?I63.9 - Cerebral infarction, unspecified (ICD-10) Osteopenia ?M85.80 - Other specified disorders of bone density and structure, unspecified site (ICD-10) Urge incontinence ?N39.41 - Urge incontinence (ICD-10) High cholesterol ?E78.00 - Pure hypercholesterolemia, unspecified (ICD-10) Prediabetes ?R73.03 - Prediabetes (ICD-10) Benign hypertension with CKD (chronic kidney disease) stage III ?I12.9 - Hypertensive chronic kidney disease with stage 1 through stage 4 chronic kidney disease, or unspecified chronic kidney disease (ICD-10) ?N18.30 - Chronic kidney disease, stage 3 unspecified (ICD-10) DVT (deep venous thrombosis) ?I82.409 - Acute embolism and thrombosis of unspecified deep veins of unspecified lower extremity (ICD-10) Obesity (BMI 30-39.9) ?E66.9 - Obesity, unspecified (ICD-10) Colon cancer ?C18.9 - Malignant neoplasm of colon, unspecified (ICD-10) Rheumatoid arthritis ?M06.9 - Rheumatoid arthritis, unspecified (ICD-10) Urinary tract infection ?N39.0 - Urinary tract infection, site not specified (ICD-10) Surgical History (Updated 07/28/24 @ 18:26 by Raleigh Quinones MD) History of arthroscopy of right knee ?Z98.890 - Other specified postprocedural states (ICD-10) History of arthroscopy of left shoulder ?Z98.890 - Other specified postprocedural states (ICD-10) History of appendectomy ?Z90.49 - Acquired absence of other specified parts of digestive tract (ICD- 10) History of cholecystectomy ?Z90.49 - Acquired absence of other specified parts of digestive tract (ICD- 10) Family History (Updated 07/28/24 @ 18:29 by Raleigh Quinones MD) Brother Pulmonary embolism Melanoma Liver cancer Father Prostate cancer Lung cancer Mother Heart disease Social History (Updated 07/28/24 @ 18:30 by Raleigh Quinones MD) Narrative: Patient lives independently with her . Code status is DNR. is healthcare power of business attorney. Remote history of minimal smoking. Rarely drinks alcohol. What is your current living situation?: I presently have a place to live Problems where you live: no known problems Problems where you live details: none In the past 12 months, utilities in danger of being shut off: no In past 12 months, lack of transportation kept you from medical appts, meetings, work, or getting things needed for daily living: no In the past 12 mos, have been you worried that your food would run out before you had money to buy more?: never true In the past 12 mos, the food you bought just didn't last and you didn't have money to buy more?: never true Highest level of school completed/degree received: some college, no degree Smoking Status: Former smoker Nicotine containing products detail: Back when I was 19 years old. How often do you have a drink containing alcohol: 2-4 times a month How many standard drinks containing alcohol do you have on a typical day: 1 or 2 AUDIT-C Alcohol total score: 2 Non-prescribed substance use: denies use Caffeine: Yes (coffww) How often does anyone, including family, friends and others, physically hurt you : never How often does anyone, including family, friends and others, insult or talk down to you: never How often does anyone, including family, friends and others, threaten you with harm: never How often does anyone, including family, friends and others, scream or curse at you: never service: No Meds Home Medications and Allergies Home Medications ?Medication ?Instructions ?Recorded ?Confirmed ?Type atenolol 25 mg tablet 25 mg PO DAILY 06/22/24 07/28/24 History duloxetine 60 mg capsule,delayed 60 mg PO QPM 06/22/24 07/28/24 History release rivaroxaban 10 mg tablet (Xarelto) 10 mg PO DAILY 06/22/24 07/28/24 History simvastatin 20 mg tablet 20 mg PO HS 06/22/24 07/28/24 History prednisone 1 mg tablet 1 mg PO DAILY 06/30/24 07/28/24 History gabapentin 300 mg capsule 300 - 600 mg PO BID 07/05/24 07/28/24 History acetaminophen 500 mg tablet See Rx Instructions PO Q4-6H PRN 07/14/24 07/28/24 History lisinopril 10 1 tab PO DAILY 07/21/24 07/28/24 History mg-hydrochlorothiazide 12.5 mg tablet Allergies Allergy/AdvReac Type Severity Reaction Status Date / Time No Known Drug Allergies Allergy Verified 07/20/24 14:26 Exam Narrative: Exam Narrative: She is alert and oriented to her circumstances. She gives her own history corroborated by her . Head is without apparent trauma. Eyes are normal. Extraocular movements are full. Pupils are equal round reactive to light. Visual iglesias are intact. There is no facial asymmetry. Oropharynx is normal. Neck is supple without mass or adenopathy. Respirations are clear to auscultation. Breathing is unlabored. Cardiovascular: S1, S2, regular rate and rhythm. No murmur gallop or rub. Abdomen: Bowel sounds active. Abdomen is soft without tenderness or mass. No liver tenderness. She has [id number] tenderness over her right chest wall/ribs approximately anterior to posterior axillary line and just above the costal margin. No obvious bruising or skin injury is apparent on inspection. Upper extremities with symmetric and full strength. Ikwzgz-nqjk-[id number] is normal. Lower extremities with barely antigravity strength in both legs. She can get her calves and heels off the bed but not her thighs. Passive range of motion shows mild pain in the right groin with hip flexion and internal and external rotation. On the left side passive range of motion is without discomfort. She has intact pedal pulses. She reports diminished sensation her feet but she has intact sensation to soft touch in both feet. Trace edema bilaterally. Const: Vital Signs, click to edit/add: Vital Signs - 24 hr 07/28/24 13:16 07/28/24 14:03 07/28/24 14:15 Temperature 98.1 F Pulse Rate 63 64 Pulse Rate [Pulse Oximeter] 68 Respiratory Rate 18 Blood Pressure Blood Pressure [Le ft Arm] Blood Pressure [Ri ght Upper Arm] 127/96 H Pulse Oximetry 98 99 96 Oxygen Delivery Me thod Room Air 07/28/24 14:32 07/28/24 14:34 07/28/24 17:35 Temperature 98.9 F Pulse Rate 72 Pulse Rate [Pulse Oximeter] 73 Respiratory Rate 16 Blood Pressure 156/63 H Blood Pressure [Le ft Arm] 143/72 H Blood Pressure [Ri ght Upper Arm] Pulse Oximetry 92 96 Oxygen Delivery Me thod Room Air Documenting provider has reviewed patient's vital signs: yes Hospitalist - H&P: Result Labs Labs: Short CBC 02/07/25 Range/Units 14:33 WBC 7.88 (4.50-11.00) K/uL Hgb 11.4 L (12.0-16.0) gm/dL Hct 35.6 (33.0-51.0) % Plt Count 259 (140-440) K/uL BMP 07/28/24 14:33 Sodium 139 Potassium 3.6 Chloride 103 Carbon Dioxide 25 BUN 24 Creatinine 0.9 Glucose 113 Calcium 9.7 Cardiac Enzymes 07/28/24 Range/Units 14:33 Total Creatine Kinase 91 (41-117) U/L Troponin I 0.02 (0.01-0.04) ng/mL Liver Function 07/28/24 Range/Units 14:33 Total Bilirubin 0.8 (0.1-1.5) mg/dL Direct Bilirubin 0.3 (0.0-0.5) mg/dL AST 20 (12-35) U/L ALT 13 (4-35) U/L Alkaline Phosphatase 55 (40-150) U/L Albumin 4.1 (3.3-5.0) g/dL Urine 07/28/24 Range/Units 15:15 Urine Color Yellow (Yellow) Urine Appearance Clear (Clear) Urine pH 5.5 (5.0-8.5) Ur Specific [place] 1.025 (1.000-1.030) Urine Protein Trace A (Negative) Urine Glucose (UA) Negative (Negative) Imaging CT scan - head: Radiologist's impression: INDICATION: Fall, pain. COMPARISON: 07/27/2024 brain MR, 06/22/[address] TECHNIQUE: CT of the brain / head without intravenous contrast. Multiplanar axial, coronal, and sagittal reformats were reconstructed. FINDINGS: No intracranial hemorrhage. No acute or subacute cortically based infarct. Chronic right frontal infarct. Scattered substantial white matter hypodensities may be related to chronic microvascular ischemia. No mass or mass effect. Normal ventricles. No skull fractures. No worrisome focal bone lesion. IMPRESSION: No acute findings. Hip x-ray: Radiologist's impression: Indication: Fall. Pain. Technique: Two views of the right hip, single AP view of the pelvis. Comparison: Pelvis radiograph dated 03/01/2015. Findings/Impression: Limited evaluation secondary to patient body habitus. Very subtle cortical irregularity along the intertrochanteric region of the right femur, may reflect a minimally displaced fracture. Right femoroacetabular joint alignment is anatomic, no evidence of dislocation. Mild degenerative changes of the right hip. Vascular calcifications are noted. Shoulder x-ray: Radiologist's impression: INDICATION: Fall COMPARISON: Same day rib radiographs, chest radiograph 06/23/2024 TECHNIQUE: Three views left shoulder FINDINGS: No fracture. No dislocation. High-riding humeral head with narrowing of the subacromial space consistent with a chronic rotator cuff tear. Glenohumeral osteoarthritis with mild subchondral remodeling. Fairly wide spacing between the tip of the acromion and the lateral clavicle is unchanged pain may be posttraumatic or postsurgical in nature. No focally destructive bone lesion. There is some soft tissue swelling around the shoulder. No foreign body. IMPRESSION: No acute bony findings of the left shoulder. Chest x-ray: Radiologist's impression: INDICATION: Fall, pain COMPARISON: Same-day left shoulder radiographs, prior chest CT 06/23/2024 TECHNIQUE: Three views chest and right ribs. FINDINGS: No acute or healing rib fractures. No focal or diffuse lung opacities. Surgical resection suture in the right lower lobe. No pneumothorax. No pleural effusion. Cholecystectomy clips. Heart size is normal. IMPRESSION: Normal chest and right rib radiographs. Assessment and Plan Assessment and plan (1) Fall: Problem comment: Recurrent falls recently with no definite serious injury. Ongoing reassessment of injuries for fractures and soft tissue injuries possibly missed on initial evaluation Status: Acute (2) Weakness: Problem comment: Profound weakness since illness over 1 month ago. Not improving despite resolution of COVID. Raises concern about a underlying neurologic process or other illness. Continue to evaluate. Status: Acute (3) DVT (deep venous thrombosis): Problem comment: femoral vein LLE, daily xarelto per hematology, avoid eliquis d/t colectomy Status: Acute (4) Obesity (BMI 30-39.9): Status: Acute (5) COVID: Problem comment: Active COVID infection with metabolic encephalopathy at the beginning of June 2024. No obvious signs or symptoms of COVID now though her weakness and gait instability could be related to long COVID Status: Acute (6) Rheumatoid arthritis: Problem comment: seen by rheumatology on cymbalta and neurontin Status: Acute (7) Colon cancer: Problem comment: s/p partial colectomy 2008, chronic diarrhea Status: Acute (8) Stroke: Problem comment: Beginning of June she had a CT scan which had abnormality in the right frontal lobe. Outpatient MRI done yesterday which shows that this was an old stroke. MRI also shows other areas of small-vessel ischemic changes and lacunar infarct. Likely contributing to poor balance and weakness. Status: Acute Plan Patient is admitted to the hospital for ongoing weakness and gait instability. Also ongoing evaluation of chronic medical problems noted above. At this point patient appears to need higher level of care. Does not appear safe to return home with her . Total Time Spent Total Time Spent: Total time spent today is 80 minutes in coordination of care and discussing with patient and other providers ongoing evaluation of weakness and neurologic problems including old stroke
[2024-07-28] MEDS: RIVAROXABAN 10 MG TABLET PO (18:35)
[2024-07-28] MEDS: DULOXETINE 30 MG CAPSULE DR 60 MG PO (18:35)
--- NOTE | 2024-07-28 18:49 | PC.NURSE ---
End of Shift: Patient pleasant and cooperative, arrived to the floor about 1730. Patient vitally stable, lungs clear, BS WNL, IV SL. Patient reports right side/rib pain 10/10, but does not appear in distress. Patient tolerating regular diet and has not had to use the bathroom since admission. Patient is forgetful at times. Patient used walker with SBA at home.
[2024-07-28] MEDS: ACETAMINOPHEN 325 MG TABLET 650 MG PO (19:17)
[2024-07-28] MEDS: SIMVASTATIN 20 MG TABLET PO (20:44)
[2024-07-28] MEDS: GABAPENTIN 300 MG CAPSULE 600 MG PO (20:44)
[2024-07-28] MEDS: SODIUM CHLORIDE 0.9 % (FLUSH) 10 ML SYRINGE 5 ML IVF (20:46)
[2024-07-29] VITALS (9 sets, daily range): BP systolic 145–216; BP diastolic 54–86; PULSE 64–78; RESP 16–18; TEMP 36.6–37.3; O2SAT 92–98
[2024-07-29] MEDS: ACETAMINOPHEN 325 MG TABLET 650 MG PO ×2 (04:18→18:59)
--- NOTE | 2024-07-29 06:51 | PC.NURSE ---
Pt is alert and oriented x3. Afebrile. Pt reports 7/10 pain in right flank/ribs, pain managed with PRN medications. Pt is up SBA/A1 with walker and gait belt, voiding, and tolerating a regular diet. ?
[2024-07-29 07:05] LABS: Basophils Percent Auto 0.7 % (0.0-3.0); Hematocrit 32.2 % (33.0-51.0); Hemoglobin* 10.4 gm/dL (12.0-16.0); Mean Corpuscular HGB Conc 32 gm/dL (32-36); Mean Corpuscular Hemoglobin 33 pg (26-34); Mean Corpuscular Volume 101 fL (80-100); Monocytes Percent Auto 10.5 % (0.0-11.0); Neutrophils Percent Auto 58.8 % (42.0-72.0); Platelet Count* 257 K/uL (140-440); RDW Coefficient of Variation % 12.7 % (11.5-15.5); Red Blood Count 3.18 m/uL (4.00-5.20)
[2024-07-29 07:09] LABS: Slide Review Reflex No
[2024-07-29 07:23] LABS: Chloride* 105 mmol/L (96-114); Potassium* 3.1 mmol/L (3.6-5.1); Sodium* 140 mmol/L (135-149)
[2024-07-29 07:25] LABS: Cholesterol* 141 mg/dL (90-199)
[2024-07-29 07:26] LABS: Anion Gap 9 mEq/L (7-15); Blood Urea Nitrogen* 24 mg/dL (7-30); Calcium* 9.5 mg/dL (8.4-10.6); Carbon Dioxide* 26 mmol/L (20-32); Creatinine* 0.9 mg/dL (0.5-1.5); Estimated Glomerular Filt Rate 64 ml/min; Glucose* 111 mg/dL (60-115); Triglycerides* 157 mg/dL (40-149)
[2024-07-29 07:27] LABS: HDL Cholesterol* 48 mg/dL (>=50); LDL Cholesterol Calculated 62 mg/dL (<100)
[2024-07-29 07:53] LABS: Erythrocyte SedimentationRate* 19 mm/hr (2-20)
--- NOTE | 2024-07-29 08:51 | CRLHL7_ITS ---
For Patients: As a result of the Century Cures Act, medical imaging exams and procedure reports are released immediately into your electronic medical record. You may view this report before your referring provider. If you have questions, please contact your health care provider. Indication: Pain Technique: Noncontrast CT right hip. Please note that all CT scans at this facility use dose modulation, iterative reconstruction, and/or weight-based dosing when appropriate to reduce radiation dose to as low as reasonably achievable. Comparison: X-rays 275 Findings: No fracture is present. The femoral neck is intact. Hypertrophic changes associated with the greater trochanter. Spurring at the symphysis pubis. Degenerative changes at the sacroiliac joints. No sacral fracture. Intact pubic rami. No pelvic mass. Impression: No acute fracture. Please note that all CT scans at this facility use dose modulation, iterative reconstruction, and/or weight-based dosing when appropriate to reduce radiation dose to as low as reasonably achievable. Dictated by Donnie Tierney MD @ 07/29/2024 11:31:02 AM (Electronically Signed)
--- NOTE | 2024-07-29 08:51 | CRLHL7_ITS ---
For Patients: As a result of the Century Cures Act, medical imaging exams and procedure reports are released immediately into your electronic medical record. You may view this report before your referring provider. If you have questions, please contact your health care provider. INDICATION: Right flank pain. COMPARISON: Radiographs of the pelvis and right hip dated 07/28/2024. TECHNIQUE: CT of the abdomen and pelvis with 100 cc of Omnipaque 350 intravenous contrast. Please note that all CT scans at this facility use dose modulation, iterative reconstruction, and/or weight-based dosing when appropriate to reduce radiation dose to as low as reasonably achievable. FINDINGS: ABDOMEN Liver: Normal contour and attenuation. 2.7 cm superior left hepatic lobe hemangioma with discontinuous peripheral nodular enhancement (2; 21). Uncomplicated inferior right hepatic lobe cyst (2; 48). Nonspecific benign calcification in the subcapsular aspect of the posterior inferior right hepatic lobe (2; 38). Central intrahepatic biliary ductal prominence is consistent with a reservoir effect status post cholecystectomy. Patent portal veins. Patent hepatic veins. Gallbladder: Cholecystectomy. Normal common duct caliber. Pancreas: Normal contour and attenuation. No peripancreatic inflammatory changes. No significant focal lesion. Normal main duct caliber. Spleen: Not enlarged. No significant focal lesion. 9 mm splenic artery aneurysm (2; 34). Adrenal Glands: Symmetrical adrenal glands. No significant focal lesion. Kidneys: Normal bilateral renal attenuation. No significant focal lesion. Uncomplicated left lower pole renal cortical cyst. No nephrolith. No dilatation of the intrarenal collecting systems. No ureteral stone. Nondilated ureters. Patent renal arteries and veins. Gastrointestinal tract: Partial right colectomy. Nondilated bowel. Sigmoid diverticulosis without evidence of acute diverticulitis. Prominence of the vasa recta of the colon from the proximal transverse colon to the rectosigmoid junction could be due to hyperemia/mild colitis. There is no wall thickening or pericolic fat stranding, however. Vascular: Chronic aortoiliac atherosclerotic mural calcification. Abdominal aorta and its major proximal branches including the celiac, superior mesenteric, inferior mesenteric, renal, and bilateral common iliac arteries are patent. Patent superior mesenteric vein. Peritoneal Cavity/Retroperitoneum: No ascites. No adenopathy. PELVIS No bladder lesion is identified. Left 11 mm calcified exophytic anterior fundal uterine fibroid (5; 87). Prominent left periuterine vessels and left ovarian vein consistent with pelvic congestion syndrome in the appropriate clinical setting. No significant ascites. No adenopathy. SKELETON AND BODY WALL Small adjacent supraumbilical and umbilical fat containing hernias. The former is larger, measuring 3.9 cm in greatest dimension (craniocaudal) No right hip or other fracture is identified. Multilevel lumbar disc degeneration and findings consistent with DISH involving contiguous levels of the lower thoracic spine. Dextroconvex curvature of the lumbar spine. LOWER THORAX Apparent postsurgical changes involving the right lower lobe abutting the right posterior hemidiaphragm. Please correlate with the patient`s surgical history. Bilateral lower lobe dependent hypoventilatory changes. The partially included lower thoracic wall, lungs, pleural spaces and mediastinum are otherwise without significant incidental findings. IMPRESSION: 1. No specific findings to explain right flank pain. 2. Prominence of the vasa recta of the colon from the proximal transverse colon to the rectosigmoid junction could be due to hyperemia/mild colitis. There is no wall thickening or pericolic fat stranding, however, to confirm colitis. Clinical correlation is recommended as to the potential significance of this equivocal imaging finding. 3. Incidental findings as above. Please note that all CT scans at this facility use dose modulation, iterative reconstruction, and/or weight-based dosing when appropriate to reduce radiation dose to as low as reasonably achievable. Dictated by Bishop Almaraz MD @ 07/29/2024 11:39:59 AM (Electronically Signed)
[2024-07-29] MEDS: GABAPENTIN 300 MG CAPSULE PO (09:20)
[2024-07-29] MEDS: atenoloL 25 MG TABLET PO (09:20)
[2024-07-29] MEDS: predniSONE 1 MG TABLET PO (09:20)
[2024-07-29] MEDS: lisinopriL 10 MG TABLET PO (09:20)
[2024-07-29] MEDS: SODIUM CHLORIDE 0.9 % (FLUSH) 10 ML SYRINGE 5 ML IVF ×2 (09:23→20:42)
[2024-07-29] MEDS: hydroCHLOROthiazide 12.5 MG CAPSULE PO (09:24)
[2024-07-29] MEDS: POTASSIUM BICARB 25 MEQ EFFERVESCENT TAB PO ×2 (15:09→16:26)
--- NOTE | 2024-07-29 17:16 | PM.IMPN1 ---
Progress Note: A&P Assessment and plan (1) Weakness: Problem details: Profound weakness since illness over 1 month ago. Not improving despite resolution of COVID. Raises concern about a underlying neurologic process or other illness. Considerations include sequelae of remote stroke, long COVID, other neurologic degenerative disease. Continue to evaluate. Recommend outpatient Neurology follow-up Status: Acute (2) Stroke: Problem details: Beginning of June she had a CT scan which had abnormality in the right frontal lobe. Outpatient MRI done yesterday which shows that this was an old stroke. MRI also shows other areas of small-vessel ischemic changes and lacunar infarct. Likely contributing to poor balance and weakness. Status: Acute (3) Fall: Problem details: Recurrent falls recently with no definite serious injury. Ongoing reassessment of injuries for fractures and soft tissue injuries possibly missed on initial evaluation Status: Acute (4) High cholesterol: Problem details: Appropriately managed with simvastatin Status: Acute (5) DVT (deep venous thrombosis): Problem details: On chronic rivaroxaban 10 mg daily Status: Acute Plan 84-year-old female hospitalized with weakness in unsafe living environment. Problems appear to be subacute to chronic being present for about 6 weeks, starting around 2023. At that time was thought to be related to COVID illness. This may be long COVID. She does have findings of prior strokes on MRI, also likely contributing. Continue in hospital for evaluation and management pending a safe discharge plan. Time Spent With Patient Total time spent: Total time spent today is 55 minutes, most of that time was spent patient and family discussing ongoing evaluation management of weakness and disability, management of stroke and other neurologic conditions and disposition planning. Subjective Date Seen: 07/29/24 Interval history: Admission HPI: Alexandria Bradshaw is a 84 year old female admitted to the hospital with weakness and falls at home. She was hospitalized here at the beginning of June 2024 with metabolic encephalopathy thought secondary to COVID illness. She clinically improved and was discharged to home with her . At home she has been continue to be quite weak. She has outpatient therapy at home and according to her therapist she is making no progress at improving her mobility and strength. Today she fell out of bed. She was reaching for something near the bed and fell to the floor. When she fell she hit her head her right chest wall and her left shoulder. She was too weak to get up. She laid on the floor for 4 hours until her came home. Her was on able to help her get up and so he called for the son to come and help. She also had a fall 2 days ago with similar circumstances. She has been walking with a walker at home. Her notes that she seems quite unstable and she is very weak legs and he is concerned that she is at risk for falling all the time. She specifically denies a new illness. She has minimal residual cough from her COVID infection. At the time of her last hospital stay she reported a small amount of blood in her sputum. That has resolved. She now has a persisting dry cough. She has no dyspnea. No upper respiratory symptoms. No with sore throat. No chest pain. Her activities not limited by dyspnea or chest pain. She is able to eat. No nausea or vomiting. No abdominal pain. Bowels have been normal. She has mild urinary incontinence which is chronic. No other urinary symptoms. Previously had a urine culture growing Enterobacter cloaca a. She was treated for that urinary infection. It is not clear that she had any benefit from the antibiotic treatment in terms of symptom relief. 07/29/2024: Patient reports feeling slightly better today. She reports both legs are still weak and she is having trouble walking. She reports the pain on her right flank is improved. She is not dyspneic. She reports she has been able to eat. Therapy evaluation indicates that today she has not safe to be up independently Exam Narrative: Exam Narrative: She is alert and appears in no distress. Oriented to her circumstances but still forgetful about significant details including our conversation from yesterday. Head is without trauma. Breathing is unlabored. Palpation over her right chest wall and flank shows still persistent tenderness. Lower extremities with bilateral weakness unchanged from yesterday. Const: Vital Signs, click to edit/add: Vital Signs - 24 hr 07/28/24 17:35 07/28/24 18:42 07/28/24 19:56 Temperature 98.9 F 99.2 F Pulse Rate [Pulse Oximeter] 73 74 Respiratory Rate 16 16 Blood Pressure [Le ft Arm] 143/72 H 147/74 H Blood Pressure [Ri ght Arm] Pulse Oximetry 96 96 Oxygen Delivery Me thod Room Air Room Air Room Air 07/28/24 22:10 07/28/24 22:10 07/29/24 04:00 Temperature 98.7 F 98.8 F Pulse Rate [Pulse Oximeter] 74 74 78 Respiratory Rate 16 16 16 Blood Pressure [Le ft Arm] 148/70 H 157/54 H Blood Pressure [Ri ght Arm] Pulse Oximetry 95 96 Oxygen Delivery Me thod Room Air Room Air 07/29/24 08:30 07/29/24 09:00 07/29/24 09:25 Temperature 98.5 F Pulse Rate [Pulse Oximeter] 65 77 Respiratory Rate 16 16 18 Blood Pressure [Le ft Arm] 182/69 H 194/78 H 216/86 H Blood Pressure [Ri ght Arm] Pulse Oximetry 96 95 98 Oxygen Delivery Me thod Room Air Room Air Room Air 07/29/24 09:25 07/29/24 09:31 07/29/24 11:15 Temperature 98.4 F Pulse Rate [Pulse Oximeter] 70 70 67 Respiratory Rate 18 16 Blood Pressure [Le ft Arm] 205/74 H Blood Pressure [Ri ght Arm] 167/78 H Pulse Oximetry 93 Oxygen Delivery Me thod Room Air 07/29/24 15:11 07/29/24 15:11 Temperature 99.1 F Pulse Rate [Pulse Oximeter] 67 67 Respiratory Rate 16 16 Blood Pressure [Le ft Arm] 165/82 H Blood Pressure [Ri ght Arm] Pulse Oximetry 98 Oxygen Delivery Me thod Room Air Documenting provider has reviewed patient's vital signs: yes Labs Labs: Laboratory Results - last 24 hr 07/28/24 07/29/24 14:33 05:48 WBC 4.30 L RBC 3.18 L Hgb 10.4 L Hct 32.2 L MCV 101 H MCH 33 MCHC 32 RDW Coeff of Rowan 12.7 Plt Count 257 Neut % (Auto) 58.8 Lymph % (Auto) 27.0 [place] % (Auto) 10.5 Eos % (Auto) 3.0 Baso % (Auto) 0.7 Neut # (Auto) 2.50 Lymph # (Auto) 1.20 [place] # (Auto) 0.50 Eos # (Auto) 0.10 Baso # (Auto) 0.00 Abs Immat Gran (auto) 0.00 Imm/Tot Granulo (auto) 0.0 ESR 19 Sodium 140 Potassium 3.1 L Chloride 105 Carbon Dioxide 26 Anion Gap 9 BUN 24 Creatinine 0.9 Estimated Creat Clear 34.30 Estimated GFR 64 Glucose 111 Calcium 9.5 Triglycerides 157 H Cholesterol 141 LDL Cholesterol, Calc 62 HDL Cholesterol 48 L Vitamin B12 948 H TSH 2.050
[2024-07-29] MEDS: DULOXETINE 30 MG CAPSULE DR 60 MG PO (17:44)
[2024-07-29] MEDS: RIVAROXABAN 10 MG TABLET PO (17:44)
--- NOTE | 2024-07-29 18:31 | PC.NURSE ---
End of Shift: Patient pleasant and cooperative. Patient very hypertensive this morning, MD aware ( see vitals), lungs clear, BS WNL, IV SL and intact. Patient rates right rib pain 7/10, tylenol given. Patient SBA with walker. Patient tolerating regular diet, urinating well, no BM. Patient has been up in chair but has also napped in bed.
[2024-07-29] MEDS: GABAPENTIN 300 MG CAPSULE 600 MG PO (20:41)
[2024-07-29] MEDS: SIMVASTATIN 20 MG TABLET PO (20:41)
[2024-07-30] VITALS (10 sets, daily range): BP systolic 133–187; BP diastolic 52–104; PULSE 62–73; RESP 14–22; TEMP 36.5–37.3; O2SAT 91–96
--- NOTE | 2024-07-30 04:43 | PC.NURSE ---
Shift note: Pt is alert and oriented. Doing well ambulating with A1, walker and GB. No fall this shift. No attempt to self transfer. Minimal pain at right lateral chest related to the fall. She rate pain between 2 and 4. No PRN pain med requested. Systolic Bp was elevated. Due treatment given. Patient had adequate sleep. Bed and chair alarm in place to monitor movement to prevent fall.
[2024-07-30 07:10] LABS: Chloride* 103 mmol/L (96-114); Potassium* 3.4 mmol/L (3.6-5.1); Sodium* 138 mmol/L (135-149)
[2024-07-30 07:13] LABS: Anion Gap 6 mEq/L (7-15); Carbon Dioxide* 29 mmol/L (20-32); Creatinine* 0.8 mg/dL (0.5-1.5); Estimated Glomerular Filt Rate 74 ml/min
[2024-07-30 07:14] LABS: Blood Urea Nitrogen* 19 mg/dL (7-30); Calcium* 9.4 mg/dL (8.4-10.6); Glucose* 108 mg/dL (60-115)
[2024-07-30] MEDS: POTASSIUM CHLORIDE 10 MEQ CAPSULE ER PO (07:20)
[2024-07-30] MEDS: predniSONE 1 MG TABLET PO (08:27)
[2024-07-30] MEDS: atenoloL 25 MG TABLET PO (08:27)
[2024-07-30] MEDS: lisinopriL 10 MG TABLET PO (08:27)
[2024-07-30] MEDS: GABAPENTIN 300 MG CAPSULE PO (08:27)
[2024-07-30] MEDS: hydroCHLOROthiazide 12.5 MG CAPSULE PO (08:27)
[2024-07-30] MEDS: SODIUM CHLORIDE 0.9 % (FLUSH) 10 ML SYRINGE 5 ML IVF (08:28)
[2024-07-30] MEDS: ACETAMINOPHEN 325 MG TABLET 650 MG PO ×2 (10:57→20:16)
--- NOTE | 2024-07-30 15:10 | PM.IMPN1 ---
Progress Note: A&P Assessment and plan (1) Weakness: Problem details: Profound weakness since illness over 1 month ago. Not improving despite resolution of other symptoms of COVID. Raises concern about a underlying neurologic process or other illness. Considerations include sequelae of remote stroke, long COVID, other neurologic degenerative disease. Likely has significant deconditioning as she is very sedentary at home in part due to her feeling unsafe to be up in moving about on her own. Continue to evaluate. Recommend outpatient Neurology follow-up Status: Acute (2) Stroke: Problem details: Beginning of June she had a CT scan which had abnormality in the right frontal lobe. Outpatient MRI done yesterday which shows that this was an old stroke. MRI also shows other areas of small-vessel ischemic changes and lacunar infarct. Likely contributing to poor balance and weakness. Status: Acute (3) Fall: Problem details: Recurrent falls recently with no definite serious injury. Ongoing reassessment of injuries for fractures and soft tissue injuries possibly missed on initial evaluation Status: Acute (4) High cholesterol: Problem details: Appropriately managed with simvastatin Status: Acute (5) DVT (deep venous thrombosis): Problem details: On chronic rivaroxaban 10 mg daily Status: Acute (6) Cognitive impairment: Problem details: Newberry score of 16 on 07/30/2024 Status: Acute Plan Continue in hospital for evaluation and treatment pending safe discharge plan Time Spent With Patient Total time spent: Total time spent today is 45 minutes in evaluation management most that time is spent discussing with family and patient her disabilities and treatment plan and disposition planning Subjective Date Seen: 07/30/24 Interval history: Admission HPI: Alexandria Bradshaw is a 84 year old female admitted to the hospital with weakness and falls at home. She was hospitalized here at the beginning of June 2024 with metabolic encephalopathy thought secondary to COVID illness. She clinically improved and was discharged to home with her . At home she has been continue to be quite weak. She has outpatient therapy at home and according to her therapist she is making no progress at improving her mobility and strength. Today she fell out of bed. She was reaching for something near the bed and fell to the floor. When she fell she hit her head her right chest wall and her left shoulder. She was too weak to get up. She laid on the floor for 4 hours until her came home. Her was on able to help her get up and so he called for the son to come and help. She also had a fall 2 days ago with similar circumstances. She has been walking with a walker at home. Her notes that she seems quite unstable and she is very weak legs and he is concerned that she is at risk for falling all the time. She specifically denies a new illness. She has minimal residual cough from her COVID infection. At the time of her last hospital stay she reported a small amount of blood in her sputum. That has resolved. She now has a persisting dry cough. She has no dyspnea. No upper respiratory symptoms. No with sore throat. No chest pain. Her activities not limited by dyspnea or chest pain. She is able to eat. No nausea or vomiting. No abdominal pain. Bowels have been normal. She has mild urinary incontinence which is chronic. No other urinary symptoms. Previously had a urine culture growing Enterobacter cloaca a. She was treated for that urinary infection. It is not clear that she had any benefit from the antibiotic treatment in terms of symptom relief. 07/29/2024: Patient reports feeling slightly better today. She reports both legs are still weak and she is having trouble walking. She reports the pain on her right flank is improved. She is not dyspneic. She reports she has been able to eat. Therapy evaluation indicates that today she has not safe to be up independently 07/30/2024: Patient reports ongoing weakness in both legs. Therapist note poor motor planning with transfers in mobility. She does not use a walker safely. Newberry score today is 16. Discussed in detail with the family issues related to her cognitive impairment and her physical deconditioning as well as her poor balance and generalized weakness. Family is in agreement that she is not safe to be home alone and are hoping for a long term facility for rehab Exam Narrative: Exam Narrative: She is alert pleasant and appears in no distress. She is forgetful and repeats multiple questions that I have answered in the last 2 days. Bilateral lower extremity weakness is unchanged and symmetric. She moves upper extremities well. Breathing is unlabored. Const: Vital Signs, click to edit/add: Vital Signs - 24 hr 07/29/24 15:11 07/29/24 15:11 07/29/24 19:00 Temperature 99.1 F 97.8 F Pulse Rate [Pulse Oximeter] 67 67 74 Respiratory Rate 16 16 16 Blood Pressure [Le ft Arm] 165/82 H 145/65 H Blood Pressure [Ri ght Arm] Pulse Oximetry 98 95 Oxygen Delivery Me thod Room Air Room Air 07/29/24 22:42 07/29/24 22:42 07/30/24 03:00 Temperature 98.4 F 97.7 F Pulse Rate [Pulse Oximeter] 64 64 64 Respiratory Rate 16 16 16 Blood Pressure [Le ft Arm] Blood Pressure [Ri ght Arm] 155/68 H 176/61 H Pulse Oximetry 92 91 Oxygen Delivery Me thod Room Air Room Air 07/30/24 07:17 07/30/24 07:17 07/30/24 10:59 Temperature 98.6 F 99.1 F Pulse Rate [Pulse Oximeter] 62 62 62 Respiratory Rate 14 14 22 Blood Pressure [Le ft Arm] 133/59 L 157/61 H Blood Pressure [Ri ght Arm] Pulse Oximetry 93 96 Oxygen Delivery Me thod Room Air Room Air Documenting provider has reviewed patient's vital signs: yes Labs Labs: Laboratory Results - last 24 hr 07/30/24 06:15 Sodium 138 Potassium 3.4 L Chloride 103 Carbon Dioxide 29 Anion Gap 6 L BUN 19 Creatinine 0.8 Estimated Creat Clear 34.30 Estimated GFR 74 Glucose 108 Calcium 9.4
[2024-07-30] MEDS: DULOXETINE 30 MG CAPSULE DR 60 MG PO (18:09)
[2024-07-30] MEDS: RIVAROXABAN 10 MG TABLET PO (18:09)
--- NOTE | 2024-07-30 18:58 | PC.NURSE ---
End of Shift: Patient pleasant and cooperative. Patient vitally stable, lungs clear, BS WNL, NO IV. Patient denies but has reported headache, tylenol given once. Patient SBA/walker. Patient tolerating regular diet, urinating, and had 1 BM. Patient has been up in chair today but also napping in bed.
[2024-07-30] MEDS: SIMVASTATIN 20 MG TABLET PO (20:16)
[2024-07-30] MEDS: GABAPENTIN 300 MG CAPSULE 600 MG PO (20:16)
[2024-07-31] VITALS (7 sets, daily range): BP systolic 145–161; BP diastolic 52–83; PULSE 57–68; RESP 16–18; TEMP 36.4–37.4; O2SAT 95–99
[2024-07-31] MEDS: hydroCHLOROthiazide 12.5 MG CAPSULE PO (09:02)
[2024-07-31] MEDS: lisinopriL 10 MG TABLET PO (09:03)
[2024-07-31] MEDS: POTASSIUM CHLORIDE 10 MEQ CAPSULE ER PO (09:03)
[2024-07-31] MEDS: GABAPENTIN 300 MG CAPSULE PO (09:04)
[2024-07-31] MEDS: predniSONE 1 MG TABLET PO (09:04)
[2024-07-31] MEDS: atenoloL 25 MG TABLET PO (09:04)
[2024-07-31] MEDS: ACETAMINOPHEN 325 MG TABLET 650 MG PO ×3 (09:40→22:10)
--- NOTE | 2024-07-31 09:40 | PC.SOCIAL ---
Addendum entered by VALERIE Steinberg 07/31/24 14:16: Prior authorization from pt's insurance has been received and sent to [facility] and copy provided to pt. Met with pt and who state will pick pt up at 10:00 tomorrow morning to bring her to [facility]. general i farmworker to follow up as needed. Addendum entered by Jinny Storey SCULPTURE CONSERVATOR 07/31/24 14:09: PAS completed and submitted in advance of discharge planned for tomorrow to [facility] PAS#[id number]. Addendum entered by Jinny Storey SCULPTURE CONSERVATOR 07/31/24 12:46: Received call from [facility] stating they have a bed available for tomorrow and can assess pt. Secure emailed information to [facility] and received a call back stating they can accept pt to a private rehab room tomorrow, pending prior authorization by pt's Medicare Advantage insurance. [facility] requested pt arrive between 10:30 and 13:00 tomorrow. Family to transport pt to [facility]. Hospital UR department is requesting prior authorization for admission to [facility]. general i farmworker to follow up as needed. Original Note: Discharge Planning: Met with pt and family in room regarding dc plan. Pt is aware and agrees with team recommendation for a short term rehab stay at discharge from the hospital. She is requesting placement at [facility] as she lives in [place] and her mother was at that facility for several years. Called and left message for [facility] requesting call back regarding bed availability. Provided pt and family with list of [facility] facilities in this area and their Department of Health ratings. general i farmworker to follow up as needed.
--- NOTE | 2024-07-31 15:02 | PM.IMPN1 ---
Progress Note: A&P Assessment and plan (1) Weakness: Problem details: Profound weakness since illness over 1 month ago. Not improving despite resolution of other symptoms of COVID. Raises concern about a underlying neurologic process or other illness. Considerations include sequelae of remote stroke, long COVID, other neurologic degenerative disease. Likely has significant deconditioning as she is very sedentary at home in part due to her feeling unsafe to be up in moving about on her own. Continue to evaluate. Recommend outpatient Neurology follow-up Status: Acute (2) Impaired mobility: Problem details: Combination of factors including generalized weakness and deconditioning, poor balance but also poor motor planning, not able to use a walker well with apparent cognitive deficits. Status: Acute (3) Cognitive impairment: Problem details: Mclean score of 16 on 07/30/2024 Status: Acute (4) Stroke: Problem details: Beginning of June she had a CT scan which had abnormality in the right frontal lobe. Outpatient MRI done yesterday which shows that this was an old stroke. MRI also shows other areas of small-vessel ischemic changes and lacunar infarct. Likely contributing to poor balance and weakness. Status: Acute (5) Fall: Problem details: Recurrent falls recently with no definite serious injury. Ongoing reassessment of injuries for fractures and soft tissue injuries possibly missed on initial evaluation Status: Acute (6) High cholesterol: Problem details: Appropriately managed with simvastatin Status: Acute (7) DVT (deep venous thrombosis): Problem details: On chronic rivaroxaban 10 mg daily Status: Acute Plan Continue in-hospital pending safe discharge plan. Possible [facility] Time Spent With Patient Total time spent: Total time spent today is 30 minutes in discussing with other providers and patient ongoing evaluation and management Subjective Date Seen: 07/31/24 Interval history: Admission HPI: Alexandria Bradshaw is a 84 year old female admitted to the hospital with weakness and falls at home. She was hospitalized here at the beginning of June 2024 with metabolic encephalopathy thought secondary to COVID illness. She clinically improved and was discharged to home with her . At home she has been continue to be quite weak. She has outpatient therapy at home and according to her therapist she is making no progress at improving her mobility and strength. Today she fell out of bed. She was reaching for something near the bed and fell to the floor. When she fell she hit her head her right chest wall and her left shoulder. She was too weak to get up. She laid on the floor for 4 hours until her came home. Her was on able to help her get up and so he called for the son to come and help. She also had a fall 2 days ago with similar circumstances. She has been walking with a walker at home. Her notes that she seems quite unstable and she is very weak legs and he is concerned that she is at risk for falling all the time. She specifically denies a new illness. She has minimal residual cough from her COVID infection. At the time of her last hospital stay she reported a small amount of blood in her sputum. That has resolved. She now has a persisting dry cough. She has no dyspnea. No upper respiratory symptoms. No with sore throat. No chest pain. Her activities not limited by dyspnea or chest pain. She is able to eat. No nausea or vomiting. No abdominal pain. Bowels have been normal. She has mild urinary incontinence which is chronic. No other urinary symptoms. Previously had a urine culture growing Enterobacter cloaca a. She was treated for that urinary infection. It is not clear that she had any benefit from the antibiotic treatment in terms of symptom relief. 07/29/2024: Patient reports feeling slightly better today. She reports both legs are still weak and she is having trouble walking. She reports the pain on her right flank is improved. She is not dyspneic. She reports she has been able to eat. Therapy evaluation indicates that today she has not safe to be up independently 07/30/2024: Patient reports ongoing weakness in both legs. Therapist note poor motor planning with transfers in mobility. She does not use a walker safely. Mclean score today is 16. Discussed in detail with the family issues related to her cognitive impairment and her physical deconditioning as well as her poor balance and generalized weakness. Family is in agreement that she is not safe to be home alone and are hoping for a nursing home facility for rehab 07/31/2024: Patient reports generally feeling well today. She has no new concerns. Therapy continues to note that she is not able to ambulate with a walker safely. Much of her problem is that she does not use a walker safely and that she runs into objects and has poor motor planning. Exam Narrative: Exam Narrative: She is alert pleasant and in no distress. She is observed to walk with a walker. No respiratory problems. No obvious focal weakness. Const: Vital Signs, click to edit/add: Vital Signs - 24 hr 07/30/24 15:25 07/30/24 15:30 07/30/24 15:36 Temperature 99 F Pulse Rate [Pulse Oximeter] 66 68 Respiratory Rate 18 Blood Pressure [Le ft Arm] 187/104 H 167/64 H 164/60 H Pulse Oximetry 93 Oxygen Delivery Me thod Room Air 07/30/24 15:48 07/30/24 20:00 07/30/24 22:44 Temperature 98.5 F Pulse Rate [Pulse Oximeter] 68 70 Respiratory Rate 18 18 18 Blood Pressure [Le ft Arm] 154/52 H Pulse Oximetry 94 Oxygen Delivery Me thod Room Air 07/30/24 23:00 07/31/24 03:00 07/31/24 09:07 Temperature 99.1 F Pulse Rate [Pulse Oximeter] 73 Respiratory Rate 16 16 Blood Pressure [Le ft Arm] 158/70 H 145/83 H Pulse Oximetry 96 Oxygen Delivery Me thod Room Air 07/31/24 09:40 07/31/24 09:40 07/31/24 11:45 Temperature 99.4 F 97.6 F Pulse Rate [Pulse Oximeter] 62 62 57 L Respiratory Rate 16 18 18 Blood Pressure [Le ft Arm] 161/64 H Pulse Oximetry 96 96 Oxygen Delivery Me thod Room Air Room Air Documenting provider has reviewed patient's vital signs: yes
[2024-07-31] MEDS: DULOXETINE 30 MG CAPSULE DR 60 MG PO (17:35)
[2024-07-31] MEDS: RIVAROXABAN 10 MG TABLET PO (17:35)
--- NOTE | 2024-07-31 17:52 | PC.NURSE ---
End of shift summary: Pt has been A&O, afebrile and VSS. She is forgetful regarding earlier events of the day & intermittently does not utilize her call light. Bed & chair alarms in place d/t history of falls at home. She is SBA with walker. BLE 1+ noted. Occasional c/o right side ribcage pain and headache. PRN Tylenol given x2 doses today, last @ 1735. No IV access & MD okay. She comes from home with her . She will be discharging to [facility] in [place] on 08/01 with family transporting at 1000. [facility] is requesting she arrive between [id number]. ?
[2024-07-31] MEDS: SIMVASTATIN 20 MG TABLET PO (20:28)
[2024-07-31] MEDS: GABAPENTIN 300 MG CAPSULE 600 MG PO (20:28)
[2024-08-01 02:56] VITALS: BP 153/60; PULSE 63; RESP 16; TEMP 36.8; O2SAT 95
--- NOTE | 2024-08-01 06:36 | PC.NURSE ---
End of shift [id number]: Pt AxOx4, pleasant, and cooperative. Bed alarm in place due to using call light occasionally and a hx of falls at home. SBA DANIELLE Jones. Patient reported headache during the beginning of the shift. Neuro check within normal limits. Finisher Operator utilized dim lighting, reposition, warm washcloth, and PRN Tylenol. Relief reported from Pt. Pt able to sleep for majority of the night. Continent of the bladder. Tolerating diet/fluid well. Pt appears resting with call light in reach. ?
[2024-08-01 07:00] VITALS: BP 192/96; PULSE 65; RESP 18; TEMP 37.2; O2SAT 96
[2024-08-01] MEDS: POTASSIUM CHLORIDE 10 MEQ CAPSULE ER PO (08:01)
[2024-08-01] MEDS: GABAPENTIN 300 MG CAPSULE PO (09:05)
[2024-08-01] MEDS: predniSONE 1 MG TABLET PO (09:05)
[2024-08-01] MEDS: hydroCHLOROthiazide 12.5 MG CAPSULE PO (09:05)
[2024-08-01] MEDS: atenoloL 25 MG TABLET PO (09:05)
[2024-08-01] MEDS: lisinopriL 10 MG TABLET PO (09:05)
--- NOTE | 2024-08-01 11:27 | PC.NURSE ---
Discharge: Patient pleasant and cooperative, A&O. VSS, afebrile. SpO2 maintained above 90% on RA. Discharge instructions provided, all questions answered.
--- NOTE | 2024-08-01 12:19 | P.DS_ITS ---
DS: Providers Provider Date Seen: 08/01/24 Date of admission: 07/28/24 17:29 Primary care physician: Mervat Garcia CNP Admitting Clinician: Raleigh Quinones MD Attending Physician on discharge: Raleigh Quinones MD Date of Discharge: 08/01/24 DS: Diagnosis Discharge Diagnosis (1) Impaired mobility: Status: Acute Problem details: Combination of factors including generalized weakness and deconditioning, poor balance but also poor motor planning, not able to use a walker well. It appears poor cognitive function is contributing as much as other factors to impaired mobility (2) Cognitive impairment: Status: Acute Problem details: Greeley score of 16 on 07/30/2024 (3) Stroke: Status: Acute Problem details: Beginning of June she had a CT scan which had abnormality in the right frontal lobe. Outpatient MRI done the day prior to admission which shows that this was an old stroke. MRI also shows other areas of small-vessel ischemic changes and lacunar infarct. Likely contributing to poor balance and weakness. (4) Weakness: Status: Acute Problem details: Profound weakness since illness over 1 month ago. Not improving despite resolution of other symptoms of COVID. Raises concern about a underlying neurologic process or other illness. Considerations include sequelae of remote stroke, long COVID, other neurologic degenerative disease. Likely has significant deconditioning as she is very sedentary at home in part due to her feeling unsafe to be up in moving about on her own. Continue to evaluate. Recommend outpatient Neurology follow-up (5) Fall: Status: Acute Problem details: Recurrent falls recently with no definite serious injury. Ongoing reassessment of injuries for fractures and soft tissue injuries possibly missed on initial evaluation (6) DVT (deep venous thrombosis): Status: Acute Problem details: On chronic rivaroxaban 10 mg daily DS: Summary Hospital Course Hospital Course: Admission HPI: Alexandria Bradshaw is a 84 year old female admitted to the hospital with weakness and falls at home. She was hospitalized here at the beginning of June 2024 with metabolic encephalopathy thought secondary to COVID illness. She clinically improved and was discharged to home with her . At home she has been continue to be quite weak. She has outpatient therapy at home and according to her therapist she is making no progress at improving her mobility and strength. Today she fell out of bed. She was reaching for something near the bed and fell to the floor. When she fell she hit her head her right chest wall and her left shoulder. She was too weak to get up. She laid on the floor for 4 hours until her came home. Her was on able to help her get up and so he called for the son to come and help. She also had a fall 2 days ago with similar circumstances. She has been walking with a walker at home. Her notes that she seems quite unstable and she is very weak legs and he is concerned that she is at risk for falling all the time. She specifically denies a new illness. She has minimal residual cough from her COVID infection. At the time of her last hospital stay she reported a small amount of blood in her sputum. That has resolved. She now has a persisting dry cough. She has no dyspnea. No upper respiratory symptoms. No with sore throat. No chest pain. Her activities not limited by dyspnea or chest pain. She is able to eat. No nausea or vomiting. No abdominal pain. Bowels have been normal. She has mild urinary incontinence which is chronic. No other urinary symptoms. Previously had a urine culture growing Enterobacter cloaca a. She was treated for that urinary infection. It is not clear that she had any benefit from the antibiotic treatment in terms of symptom relief. During hospital stay the patient made some progress with improvement in ambulation. Evaluation did not show any significant specific motor defects but generalized deconditioning. She had trouble managing the walker at times, runni ng into objects. She was not properly using the brakes on the walker. Appear to have some problems with motor planning. Cognitive testing showed a Greeley of 16/30. The injuries that occurred with her fall did not appear to be serious. The pain improved. No other sign of illness. Status at Discharge Functional status at discharge: uses cane/walker Overall status at discharge: patient is progressing back to baseline Time Spent with Patient Time attestation: Total time spent providing and/or coordinating discharge services: Time spent: Greater than 30 minutes Exam Narrative: Exam Narrative: She is alert and appears in no distress. She does not recall significant recent events. She is pleasant and cooperative. She is observed to walk with therapy today. She requires quite a bit of verbal instruction to get from sitting in bed to standing with a walker to walking around the room with a walker and then getting into the chair. She is able to do this however without someone holding onto her. Const: Vital Signs, click to edit/add: Vital Signs - 24 hr 07/31/24 15:00 07/31/24 15:00 07/31/24 19:00 Temperature 97.8 F 97.7 F Pulse Rate [Pulse Oximeter] 66 66 65 Respiratory Rate 16 16 18 Blood Pressure [Le ft Arm] 152/66 H 159/61 H Pulse Oximetry 98 99 Oxygen Delivery Me thod Room Air Room Air 07/31/24 22:18 08/01/24 02:56 08/01/24 07:00 Temperature 98.1 F 98.3 F 98.9 F Pulse Rate [Pulse Oximeter] 68 63 65 Respiratory Rate 16 16 18 Blood Pressure [Le ft Arm] 158/52 H 153/60 H 192/96 H Pulse Oximetry 95 95 96 Oxygen Delivery Me thod Room Air Room Air Room Air 08/01/24 07:00 Temperature Pulse Rate [Pulse Oximeter] 65 Respiratory Rate 18 Blood Pressure [Le ft Arm] Pulse Oximetry Oxygen Delivery Me thod Documenting provider has reviewed patient's vital signs: yes DS: Data Imaging MR Brain: Radiologist's impression: INDICATION: Follow-up abnormal head CT findings. TECHNIQUE: Brain MRI with and without contrast. 20 cc Dotarem gadolinium based contrast administered. COMPARISON: Head CT from 06/22/2024. FINDINGS: No evidence of acute ischemia. No evidence of acute or chronic intracranial blood products. No mass or pathologic intracranial enhancement. A chronic transcortical infarct within the right middle frontal gyrus and subjacent white matter. Tiny chronic lacunar infarct within the left posterior putamen. Tiny chronic lacunar infarct within the right lateral thalamic capsule. Patchy FLAIR hyperintensities within the supratentorial white matter and brainstem, typical for chronic microvascular ischemic change. No hydrocephalus or extra-axial collections. Partially empty sella. Parasellar structures and optic chiasm are normal. Tiny chronic linear infarct within the right superior cerebellar hemisphere. All the major intracranial vascular structures demonstrate normal flow-related signal. The orbital contents are normal. No calvarial or skull base marrow signal abnormality. Right-sided TMJ arthrosis. No obstructive sinus disease. No extracranial soft tissue findings. IMPRESSION: 1. No acute infarction or other acute intracranial pathology. 2. No mass or pathologic intracranial enhancement. 3. 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 4. Small chronic lacunar infarcts bilateral basal ganglia. Small chronic linear infarct right superior cerebellar hemisphere. Moderate chronic microvascular ischemic changes. Dictated by Donell Schreiber MD @ 07/28/2024 1:51:[address] scan - abdomen: Radiologist's impression: INDICATION: Right flank pain. COMPARISON: Radiographs of the pelvis and right hip dated 07/28/2024. TECHNIQUE: CT of the abdomen and pelvis with 100 cc of Omnipaque 350 intravenous contrast. Please note that all CT scans at this facility use dose modulation, iterative reconstruction, and/or weight-based dosing when appropriate to reduce radiation dose to as low as reasonably achievable. FINDINGS: ABDOMEN Liver: Normal contour and attenuation. 2.7 cm superior left hepatic lobe hemangioma with discontinuous peripheral nodular enhancement (2; 21). Uncomplicated inferior right hepatic lobe cyst (2; 48). Nonspecific benign calcification in the subcapsular aspect of the posterior inferior right hepatic lobe (2; 38). Central intrahepatic biliary ductal prominence is consistent with a reservoir effect status post cholecystectomy. Patent portal veins. Patent hepatic veins. Gallbladder: Cholecystectomy. Normal common duct caliber. Pancreas: Normal contour and attenuation. No peripancreatic inflammatory changes. No significant focal lesion. Normal main duct caliber. Spleen: Not enlarged. No significant focal lesion. 9 mm splenic artery aneurysm (2; 34). Adrenal Glands: Symmetrical adrenal glands. No significant focal lesion. Kidneys: Normal bilateral renal attenuation. No significant focal lesion. Uncomplicated left lower pole renal cortical cyst. No nephrolith. No dilatation of the intrarenal collecting systems. No ureteral stone. Nondilated ureters. Patent renal arteries and veins. Gastrointestinal tract: Partial right colectomy. Nondilated bowel. Sigmoid diverticulosis without evidence of acute diverticulitis. Prominence of the vasa recta of the colon from the proximal transverse colon to the rectosigmoid junction could be due to hyperemia/mild colitis. There is no wall thickening or pericolic fat stranding, however. Vascular: Chronic aortoiliac atherosclerotic mural calcification. Abdominal aorta and its major proximal branches including the celiac, superior mesenteric, inferior mesenteric, renal, and bilateral common iliac arteries are patent. Patent superior mesenteric vein. Peritoneal Cavity/Retroperitoneum: No ascites. No adenopathy. PELVIS No bladder lesion is identified. Left 11 mm calcified exophytic anterior fundal uterine fibroid (5; 87). Prominent left periuterine vessels and left ovarian vein consistent with pelvic congestion syndrome in the appropriate clinical setting. No significant ascites. No adenopathy. SKELETON AND BODY WALL Small adjacent supraumbilical and umbilical fat containing hernias. The former is larger, measuring 3.9 cm in greatest dimension (craniocaudal) No right hip or other fracture is identified. Multilevel lumbar disc degeneration and findings consistent with DISH involving contiguous levels of the lower thoracic spine. Dextroconvex curvature of the lumbar spine. LOWER THORAX Apparent postsurgical changes involving the right lower lobe abutting the right posterior hemidiaphragm. Please correlate with the patient`s surgical history. Bilateral lower lobe dependent hypoventilatory changes. The partially included lower thoracic wall, lungs, pleural spaces and mediastinum are otherwise without significant incidental findings. IMPRESSION: 1. No specific findings to explain right flank pain. 2. Prominence of the vasa recta of the colon from the proximal transverse colon to the rectosigmoid junction could be due to hyperemia/mild colitis. There is no wall thickening or pericolic fat stranding, however, to confirm colitis. Clinical correlation is recommended as to the potential significance of this equivocal imaging finding. 3. Incidental findings as above. Please note that all CT scans at this facility use dose modulation, iterative reconstruction, and/or weight-based dosing when appropriate to reduce radiation dose to as low as reasonably achievable. Dictated by Bishop Almaraz MD @ 07/29/2024 11:39:[address]- Other: Radiologist's impression: Indication: Pain Technique: Noncontrast CT right hip. Please note that all CT scans at this facility use dose modulation, iterative reconstruction, and/or weight-based dosing when appropriate to reduce radiation dose to as low as reasonably achievable. Comparison: X-rays 275 Findings: No fracture is present. The femoral neck is intact. Hypertrophic changes associated with the greater trochanter. Spurring at the symphysis pubis. Degenerative changes at the sacroiliac joints. No sacral fracture. Intact pubic rami. No pelvic mass. Impression: No acute fracture. Please note that all CT scans at this facility use dose modulation, iterative reconstruction, and/or weight-based dosing when appropriate to reduce radiation dose to as low as reasonably achievable. Dictated by Donnie Tierney MD @ 07/29/2024 11:31:02 AM Discharge Plan Discharge Disposition: [facility] Date of Admission: 07/28/24 17:29 Attending Provider on Discharge: Raleigh Quinones Primary Care Provider: Mervat Garcia Condition: Stable Discharge Medications: New potassium chloride 10 mEq capsule, extended release 10 meq PO DAILY Qty: 30 0RF Continued gabapentin 300 mg capsule 300 - 600 mg PO BID Rx Instructions: 300 MG IN AM, 600 MG IN PM lisinopril-hydrochlorothiazide 10-12.5 mg tablet 1 tab PO DAILY atenolol 25 mg tablet 25 mg PO DAILY simvastatin 20 mg tablet 20 mg PO HS duloxetine 60 mg capsule,delayed release(DR/EC) 60 mg PO QPM Xarelto 10 mg tablet 10 mg PO DAILY prednisone 1 mg tablet 1 mg PO DAILY acetaminophen 500 mg tablet See Rx Instructions PO Q4-6H PRN Rx Instructions: 1-2 tablets orally every 4-6 hours PRN; Not to exceed 6 tablets in 24 hours. Discharge Orders: Discharge Order (Routine); Ordered 08/01/24 Ordered By: Raleigh Quinones Activity Level: Up with assist and Use Walker Discharge Diet: Heart Healthy (2 gm sodium, low fat) Follow Up Appointments: Mervat Garcia, REPAIRER [Primary Care Provider] - Forms: [facility] Info Instructions Admit to: SNF Discharge Potential: Fair Length of Stay: <30 days Can use facility standing orders?: Yes Code Status: DNR/DNI Rehab Potential: Fair Therapy: Physical Therapy and Occupational Therapy Therapy Orders: Evaluate and Treat Oxygen: No Urinary Catheter: No Lab Orders: Basic metabolic panel and CBC in 1 week
== END 2024-08-01 11:29 ==
LOC: ED 15:56 → MEDSURG 17:29
PROVIDERS: Admitting Provider Family Medicine; Emergency Provider Family Medicine; PCP Nurse Practitioner Family; Visit Provider Family Medicine
DX: R53.1 Weakness (principal); R29.6 Repeated falls; R93.0 Abnormal findings on diagnostic imaging of skull and head, not elsewhere classified; Z86.16 Personal history of COVID-19; R05.1 Acute cough; Z74.09 Other reduced mobility; E78.00 Pure hypercholesterolemia, unspecified; R26.81 Unsteadiness on feet; I82.412 Acute embolism and thrombosis of left femoral vein; I25.2 Old myocardial infarction; R41.89 Other symptoms and signs involving cognitive functions and awareness; R32 Unspecified urinary incontinence; M25.512 Pain in left shoulder; R07.81 Pleurodynia; I10 Essential (primary) hypertension; W19.XXXA Unspecified fall, initial encounter; E66.9 Obesity, unspecified; Z68.36 Body mass index [BMI] 36.0-36.9, adult; M06.9 Rheumatoid arthritis, unspecified; Z90.49 Acquired absence of other specified parts of digestive tract
CPT/HCPCS: 36415; 70450; 71101; 73030; 73502; 73700; 74177; 80048; 80061; 80076; 81001; 82550; 82607; 83605; 84443; 84484; 85025; 85651; 86140; 87086; 87426; 87635; 96360; 96361; 97110; 97116; 97162; 97166; 97530; 97535; 99284; 99285; A9270; G0378; J7030; J7512; Q9967

== ENCOUNTER 2024-08-30 14:15 | Outpatient (CLI) | payer MEDICARE, SELFPAY | END 2024-08-30 14:16 | disposition home or self-care (01) | LOC: NFLDREF 09-02 08:08 | PROVIDERS: PCP Nurse Practitioner Family; Referring Provider Nurse Practitioner Family; Visit Provider Nurse Practitioner Family | DX: N30.00 Acute cystitis without hematuria (principal); B96.20 Unspecified Escherichia coli [E. coli] as the cause of diseases classified elsewhere | CPT/HCPCS: 87086 ==

== ENCOUNTER 2024-10-30 05:25 | Outpatient (CLI) | payer MEDICARE, SELFPAY | END 2024-10-30 05:26 | disposition home or self-care (01) | LOC: NFLDREF 11-04 19:26 | PROVIDERS: PCP Nurse Practitioner Family; Referring Provider Nurse Practitioner Family; Visit Provider Physician Assistant Medical | DX: N39.0 Urinary tract infection, site not specified (principal); B95.2 Enterococcus as the cause of diseases classified elsewhere; B96.89 Other specified bacterial agents as the cause of diseases classified elsewhere | CPT/HCPCS: 87086; 87186 ==

== ENCOUNTER 2024-12-07 15:05 | Outpatient (CLI) | payer MEDICARE, SELFPAY | END 2024-12-07 15:06 | disposition home or self-care (01) | LOC: NFLDREF 12-12 23:21 | PROVIDERS: PCP Nurse Practitioner Family; Referring Provider Nurse Practitioner Family; Visit Provider Nurse Practitioner Family | DX: N30.00 Acute cystitis without hematuria (principal); B96.89 Other specified bacterial agents as the cause of diseases classified elsewhere | CPT/HCPCS: 87086 ==

== ENCOUNTER 2025-01-11 15:27 | Outpatient (CLI) | payer MEDICARE, SELFPAY | END 2025-01-11 15:28 | disposition home or self-care (01) | LOC: NFLDREF 01-12 08:46 | PROVIDERS: PCP Nurse Practitioner Family; Referring Provider Nurse Practitioner Family; Visit Provider Nurse Practitioner Family | DX: R82.90 Unspecified abnormal findings in urine (principal) | CPT/HCPCS: 87086 ==

== ENCOUNTER 2025-01-17 13:49 | Observation (INO) | payer MEDICARE, SELFPAY ==
[2025-01-17] VITALS (7 sets, daily range): BP systolic 111–194; BP diastolic 59–83; PULSE 60–64; RESP 16–18; TEMP 35.5–36.6; O2SAT 96–99; BMI 34.4; BMI 34.0; BMI 34.1
--- NOTE | 2025-01-17 14:30 | ED_ITS ---
HPI - General Adult General Date Seen: 01/17/25 Chief complaint: Diarrhea Stated complaint: Diarrhea Time Seen by Provider: 01/17/25 14:24 History of Present Illness HPI narrative: 84 yo F with history of cognitive impairment, stroke, history of DVT (Xarelto), history of colon cancer, hypertension with chronic kidney disease, high cholesterol, osteopenia is brought to the ER today by EM. Report is that she has been having diarrhea for 10 days. She was with her home health nurse today and she had an episode of syncope with unresponsiveness on the toilet that lasted less than 1 minute. She was pale. Blood sugar was 221 per EMS. History from the patient and her and son is that she did have a stroke which affects her cognitive function and short-term memory in June. She since then she has also had frequent UTIs and she most recently was on a round of antibiotics a couple of weeks ago. She does not really have GI trouble or any chronic history of diarrhea. She has been having trouble with diarrhea for about 10 days. History from her from the patient is that whenever she eats or drinks anything shortly after that she will evacuate her bowels and have a liquidy gross stool. It sounds like it has been a small amount of mucus. Several times the stool has been so urgent that she reaction incontinent of stool on her way to the bathroom. She says when she does not eat or drink, she does not have a bowel movement. As result she has not been eating much for the past week or so and has not been drinking very much either. The patient says she does have a cup of water and tries to stay hydrated but her feels like she is really not drinking enough. She has not had any fever. She has been having some mild abdominal cramping. She has a friend who is a retired nurse who checks on her and feels like she mother have another UTI. She apparently brought a urine sample to clinic a few days ago and it was normal. (per medical record, urinalysis on 01/11 showed 2+ bilirubin, trace ketones, trace protein, but 0-2 WBC and RBC. Negative leukocyte esterase. Negative nitrite. Urine culture grew lactobacillus) Prior to that urinalysis was abnormal on 12/07. Urine culture grew Citrobacter freundii.) Because of the persistent diarrhea she was actually calling her primary clinic this morning. She was actually on the phone with a nurse from the clinic and she was in the bathroom. Apparently in the midst of that conversation with the nurse the patient abruptly became unresponsive. Her had been listening to the phone conversation on the other line, and when she became unresponsive he went into the bathroom. discovered her sitting up on the toilet. Eyes were open but face was expressionless. No seizure activity. Per medical record she had a CT scan of her head in June that showed an abnormality in the right frontal lobe. MRI showed that this abnormality was in fact an old stroke. Also a few other areas of small vessel ischemic changes and old lacunar infarct. She was hospitalized in July due to weakness and falls at home. Most recent PCP office visit was December [address] Garcia-related to depression. Related Data Home Medications ?Medication ?Instructions ?Recorded ?Confirmed atenolol 25 mg tablet 25 mg PO DAILY 06/22/2412/21 duloxetine 60 mg capsule,delayed 60 mg PO QPM 06/22/24 01/17/25 release simvastatin 20 mg tablet 20 mg PO HS 06/22/24 5 prednisone 1 mg tablet 1 mg PO DAILY 06/30/2401/17 gabapentin 300 mg capsule 300 mg PO BID 07/05/2401/17 acetaminophen 500 mg tablet See Rx Instructions PO Q4- 6H PRN 07/14/24 01/17/25 Previous Rx's ?Medication ?Instructions ?Recorded lisinopril 20 1 tab PO QDAY #90 tabs 09/12 mg-hydrochlorothiazide 12.5 mg tablet rivaroxaban 10 mg tablet (Xarelto) 10 mg PO DAILY #90 tabs 12/05/24 duloxetine 30 mg capsule,delayed 30 mg PO QDAY #30 cap s 12/29/24 release Allergies Allergy/AdvReac Type Severity Reaction Status Date / Time codeine Allergy Mild Gastrointestinal Verified 01/17/25 17:22 Upset [facility] Medical History (Updated 01/17/25 @ 22:33 by Mai Munoz MD) Rheumatoid arthritis ?M06.9 - Rheumatoid arthritis, unspecified (ICD-10) COVID ?U07.1 - COVID-19 (ICD-10) Impaired mobility ?Z74.09 - Other reduced mobility (ICD-10) Cognitive impairment ?R41.89 - Other symptoms and signs involving cognitive functions and awareness (ICD-10) Stroke ?I63.9 - Cerebral infarction, unspecified (ICD-10) Osteopenia ?M85.80 - Other specified disorders of bone density and structure, unspecified site (ICD-10) Urge incontinence ?N39.41 - Urge incontinence (ICD-10) High cholesterol ?E78.00 - Pure hypercholesterolemia, unspecified (ICD-10) Prediabetes ?R73.03 - Prediabetes (ICD-10) Benign hypertension with CKD (chronic kidney disease) stage III ?I12.9 - Hypertensive chronic kidney disease with stage 1 through stage 4 chronic kidney disease, or unspecified chronic kidney disease (ICD-10) ?N18.30 - Chronic kidney disease, stage 3 unspecified (ICD-10) DVT (deep venous thrombosis) ?I82.409 - Acute embolism and thrombosis of unspecified deep veins of unspecified lower extremity (ICD-10) Obesity (BMI 30-39.9) ?E66.9 - Obesity, unspecified (ICD-10) Colon cancer ?C18.9 - Malignant neoplasm of colon, unspecified (ICD-10) Surgical History History of arthroscopy of right knee ?Z98.890 - Other specified postprocedural states (ICD-10) History of arthroscopy of left shoulder ?Z98.890 - Other specified postprocedural states (ICD-10) History of appendectomy ?Z90.49 - Acquired absence of other specified parts of digestive tract (ICD- 10) History of cholecystectomy ?Z90.49 - Acquired absence of other specified parts of digestive tract (ICD- 10) Family History Brother Pulmonary embolism Melanoma Liver cancer Father Prostate cancer Lung cancer Mother Heart disease Social History (Updated 01/17/25 @ 22:09 by Mai Munoz MD) Narrative: Patient lives independently with her in [place], son Jace is named as primary decision maker as of 01/17/25. Code status is DNR. 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 Remote history of minimal smoking. Rarely drinks alcohol. What is your current living situation?: I presently have a place to live Problems where you live: no known problems Problems where you live details: none In the past 12 months, utilities in danger of being shut off: no In past 12 months, lack of transportation kept you from medical appts, meetings, work, or getting things needed for daily living: no In the past 12 mos, have been you worried that your food would run out before you had money to buy more?: never true In the past 12 mos, the food you bought just didn't last and you didn't have money to buy more?: never true Highest level of school completed/degree received: some college, no degree Smoking Status: Former smoker Nicotine containing products detail: Back when I was 19 years old. How often do you have a drink containing alcohol: 2-4 times a month How many standard drinks containing alcohol do you have on a typical day: 1 or 2 AUDIT-C Alcohol total score: 2 Non-prescribed substance use: denies use Caffeine: Yes (coffww) How often does anyone, including family, friends and others, physically hurt you : never How often does anyone, including family, friends and others, insult or talk down to you: never How often does anyone, including family, friends and others, threaten you with harm: never How often does anyone, including family, friends and others, scream or curse at you: never service: No Exam Narrative: Exam Narrative: Constitutional: Appears well-developed and well-nourished. Alert. Conversant but relies on her for some history. Non toxic. HENT: Head: Atraumatic. Nose: Nose normal. Mouth/Throat: Oral mucosa is clear and mucous membranes are dry. no trismus. Pharynx normal. Tonsils symmetric. No tonsillar enlargement, erythema, or exudate. Eyes: Conjunctivae normal. EOM normal. Pupils equal, round, and reactive to light. No scleral icterus. Neck: Normal range of motion. Neck supple. No tracheal deviation present. No JVD Cardiovascular: Normal rate, regular rhythm. No gallop. No friction rub. No murmur heard. Symmetric radial artery pulses Pulmonary/Chest: Effort normal. No stridor. No respiratory distress. No wheezes. No rales. No rhonchi . No tenderness. Abdominal: Soft. Bowel sounds normal. No distension. No mass. LLQ > RLQ abd tenderness. No rebound. No guarding. Musculoskeletal: RUE: Normal range of motion. No tenderness. No deformity LUE: Normal range of motion. No tenderness. No deformity RLE: Normal range of motion. No edema. No tenderness. No deformity LLE: Normal range of motion. No edema. No tenderness. No deformity Neurological: Alert and oriented to person, place, and time. Normal strength. CN II-VII intact. No sensory deficit. GCS eye subscore is 4. GCS verbal subscore is 5. GCS motor subscore is 6. Normal coordination Skin: Skin is warm and dry. No rash noted. No pallor. Normal capillary refill. Psychiatric: Normal mood. Normal affect. Const: Vital Signs, click to edit/add: Vital Signs - 24 hr 01/17/25 13:55 Temperature 96 F L Pulse Rate [Pulse Oximeter] 60 Respiratory Rate 18 Blood Pressure [Ri ght Upper Arm] 111/82 Pulse Oximetry 96 Oxygen Delivery Me thod Room Air Course Vital Signs Vital signs: Initial Vital Signs Temperature 96 F L 01/17/25 13:55 Temperature Source Temporal Artery Scan 01/17/25 13:55 Pulse Rate 60 01/17/25 13:55 Respiratory Rate 18 01/17/25 13:55 Blood Pressure 111/82 01/17/25 13:55 Blood Pressure Mean 91 01/17/25 13:55 Blood Pressure Position Supine 01/17/25 13:55 Pulse Oximetry 96 01/17/25 13:55 Oxygen Delivery Method Room Air 01/17/25 13:55 Vital Signs Temperature 96 F L 01/17/25 13:55 Pulse Rate 60 01/17/25 13:55 Respiratory Rate 18 01/17/25 13:55 Blood Pressure 111/82 01/17/25 13:55 Pulse Oximetry 96 01/17/25 13:55 Oxygen Delivery Method Room Air 01/17/25 13:55 Temperature 97.9 F 01/17/25 20:30 Pulse Rate 62 01/17/25 20:30 Respiratory Rate 16 01/17/25 20:30 Blood Pressure 182/59 H 01/17/25 22:01 Pulse Oximetry 96 01/17/25 20:30 Oxygen Delivery Method Room Air 01/17/25 20:30 Medications Administered Medications: Generic Name Dose Route Start Last Admin Trade Name Freq PRN Reason Stop Dose Admin Sodium Chloride 1,000 mls @ 125 mls/hr 01/17/25 19:48 01/17/25 20:15 0.9 % Sodium Chloride 1000 Ml IV 125 mls/hr .Q8H JOSUE Administration Discontinued Medications Generic Name Dose Route Start Last Admin Trade Name Gerson PRN Reason Stop Dose Admin Atenolol 25 mg 01/17/25 22:07 01/17/25 22:30 Atenolol 25 Mg Tablet PO 01/17/25 22:08 25 mg ONCE ONE Administration Gabapentin 300 mg 01/17/25 21:35 01/17/25 22:31 Gabapentin 300 Mg Capsule PO 01/17/25 21:36 300 mg ONCE ONE Administration Lactated Ringer's 1,000 mls @ 1,000 mls/hr 01/17/25 15:03 01/17/25 17:05 Lactated Ringers 1000 Ml IV 01/17/25 16:02 Infused .Q1H ONE Infusion Ondansetron HCl 4 mg 01/17/25 15:03 01/17/25 15:22 Ondansetron 2 Mg/Ml Inj IVP 01/17/25 15:04 4 mg ONCE ONE Administration Rivaroxaban 10 mg 01/17/25 21:35 01/17/25 22:30 Rivaroxaban 10 Mg Tablet PO 01/17/25 21:36 10 mg ONCE ONE Administration Simvastatin 20 mg 01/17/25 21:36 01/17/25 22:36 Simvastatin 20 Mg Tablet PO 01/17/25 21:37 20 mg ONCE ONE Administration Medical Decision Making MDM Narrative Medical decision making narrative: 84-year-old female presenting to the ER today with a 10 day history of diarrhea, triggered mostly after eating or drinking, leading to generalized weakness. Also with a syncopal spell that occurred on the toilet this morning 1. GI. In terms of diarrhea differential is broad. CT scan does not show any evidence for colitis or diverticulitis. With recent antibiotics, concern is for possible C diff. I have ordered C diff and stool cultures, but she is not able to provide diarrhea sample here in the ER. LFTs are normal. 2. Renal/electrolytes. Labs showed generally reassuring kidney function and normal potassium, bicarbonate, other electrolytes. 3. Cardiac. Did have a syncopal on on the toilet this morning. Sounds like this was probably a combination of orthostatic hypotension probably vasovagal. EKG here in the ER shows sinus rhythm without any clear ischemia and troponin is undetectable. No arrhythmia since arrival here in the ER. 4. Neuro. Patient does have a history of strokes causing some chronic trouble with short-term memory and higher level cognitive function. Head CT today is negative for any acute change or bleed. She does have generalized nonfocal weakness but after IV fluids was able to ambulate using a walker ,with assistance, in the hallway. 5. Infectious disease. Patient is not febrile but has been having diarrhea recently. White count normal. Not hypotensive or tachycardic. No sepsis physiology. Lactic acid is mildly elevated 2.2 which I think is related to dehydration. Overall, given her 10 day history of diarrhea, she and her family do not think she can manage at home. Patient is graciously accepted by hospitalist, Dr. Munoz for admission. Lab Data Labs: Lab Results 01/17/25 01/17/25 Range/Units 15:04 16:16 WBC 7.20 (4.50-11.00) K/uL RBC 4.15 (4.00-5.20) m/uL Hgb 12.8 (12.0-16.0) gm/dL Hct 40.1 (33.0-51.0) % MCV 97 (80-100) fL MCH 31 (26-34) pg MCHC 32 (32-36) gm/dL RDW Coeff of Rowan 13.1 (11.5-15.5) % Plt Count 220 (140-440) K/uL Neut % (Auto) 81.9 H (42.0-72.0) % Lymph % (Auto) 11.3 L (20-44) % [place] % (Auto) 5.7 (0.0-11.0) % Eos % (Auto) 0.6 (0.0-7.0) % Baso % (Auto) 0.4 (0.0-3.0) % Neut # (Auto) 5.90 (1.7-7.0) K/uL Lymph # (Auto) 0.80 L (0.90-2.90) K/uL [place] # (Auto) 0.40 (0.00-0.90) K/UL Eos # (Auto) 0.04 (0.00-0.50) K/uL Baso # (Auto) 0.03 (0.00-0.30) K/uL Abs Immat Gran (auto) 0.01 (0.00-0.30) K/uL Imm/Tot Granulo (auto) 0.1 % Sodium 139 (135-149) mmol/L Potassium 4.2 (3.6-5.1) mmol/L Chloride 106 (96-114) mmol/L Carbon Dioxide 24 (20-32) mmol/L Anion Gap 9 (7-15) mEq/L BUN 27 (7-30) mg/dL Creatinine 1.4 (0.5-1.5) mg/dL Estimated Creat Clear 24.50 Estimated GFR 38 ml/min Glucose 135 H (60-115) mg/dL Lactate 2.2 H (0.5-1.9) mmol/L Calcium 9.8 (8.4-10.6) mg/dL Magnesium 1.8 (1.5-2.6) mg/dL Total Bilirubin 0.6 (0.1-1.5) mg/dL AST 25 (12-35) U/L ALT 24 (4-35) U/L Alkaline Phosphatase 94 (40-150) U/L Total Protein 6.4 (6.0-8.3) g/dL Albumin 4.0 (3.3-5.0) g/dL Lipase 29 (23-300) U/L POC Troponin I 0.02 (0.01-0.04) ng/ml Imaging Data CT scan - abdomen: Attestation: I have reviewed the pertinent imaging results. Radiologist's impression: IMPRESSION: 1. No acute intra-abdominal process identified. 2. Stable chronic changes. CT scan - head: Attestation: I have reviewed the pertinent imaging results. Radiologist's impression: IMPRESSION: No acute intracranial process identified. Stable chronic changes. ECG Data Attestation: I personally reviewed and interpreted this ECG as follows: Interpretation: Sinus bradycardia Rate 56 Left axis deviation. Left anterior fascicular block. Voltage criteria for LVH No ST segment elevation or depression QTC 455 Discharge Plan Discharge Clinical Impression: Diarrhea, Syncope, Weakness generalized Patient Disposition: Admitted As Observation
--- NOTE | 2025-01-17 15:03 | CRLHL7_ITS ---
For Patients: As a result of the Cures Act, medical imaging exams and procedure reports are released immediately into your electronic medical record. You may view this report before your referring provider. If you have questions, please contact your health care provider. INDICATION: Diarrhea, weakness. TECHNIQUE: CT abdomen and pelvis acquired with 92 cc Isovue 370 IV contrast. COMPARISON: None. FINDINGS: Lower chest: Bibasilar linear opacities likely atelectasis or scarring. Liver: Stable hemangioma in the left hepatic lobe. Stable right hepatic lobe calcification and subcentimeter cysts. Gallbladder and bile ducts: Status post cholecystectomy. Intra and extrahepatic biliary ductal dilatation is noted, increased compared to prior from July 29, 2024. Pancreas: Unremarkable. No mass or inflammation. Spleen: Unremarkable. Normal in size. No masses. Adrenal glands: Unremarkable. No nodules. Kidneys: Unremarkable. No suspicious masses, stones, or hydronephrosis. GI tract: Prior hemicolectomy with right lower quadrant anastomosis. No bowel obstruction. Appendix is absent. Vasculature: Abdominal aorta is normal in caliber. Mesenteric arteries are patent. Mild to moderate calcific atherosclerosis. Calcified splenic artery aneurysm. Lymph nodes: No lymphadenopathy. Peritoneum/Abdominal Wall: Right inguinal fat containing hernia. Small supraumbilical ventral fat containing hernia. Tiny fat containing umbilical hernia. No intra-abdominal free air or free fluid. Pelvis: Calcified exophytic serosal fibroid. Bladder is unremarkable. Uterus is otherwise unremarkable. Bones: Diffuse demineralization of the visualized bones. Diffuse degenerative changes. Scoliosis of the spine. IMPRESSION: 1. No acute intra-abdominal process identified. 2. Stable chronic changes. Please note that all CT scans at this facility use dose modulation, iterative reconstruction, and/or weight-based dosing when appropriate to reduce radiation dose to as low as reasonably achievable. Dictated by Cami Mcwilliams MD @ 01/17/2025 7:21:52 PM (Electronically Signed)
--- NOTE | 2025-01-17 15:03 | CRLHL7_ITS ---
For Patients: As a result of the Century Cures Act, medical imaging exams and procedure reports are released immediately into your electronic medical record. You may view this report before your referring provider. If you have questions, please contact your health care provider. INDICATION: SYNCOPE, HEADACHE. TECHNIQUE: Head CT without contrast. COMPARISON: July 28, 2024. FINDINGS: CSF spaces: Within normal limits for age. Brain parenchyma and extra-axial spaces: There are nonspecific low attenuation white matter changes consistent with chronic microvascular disease. Probable old infarct in the right frontal lobe. No sign of mass, hemorrhage, or midline shift. Skull base and calvarium: The visualized paranasal sinuses and mastoid air cells demonstrate no acute or significant findings. The visualized orbits are grossly unremarkable. No skull fractures. IMPRESSION: No acute intracranial process identified. Stable chronic changes. Please note that all CT scans at this facility use dose modulation, iterative reconstruction, and/or weight-based dosing when appropriate to reduce radiation dose to as low as reasonably achievable. Dictated by Cami Mcwilliams MD @ 01/17/2025 6:53:56 PM (Electronically Signed)
[2025-01-17] MEDS: ONDANSETRON 2 MG/ML inj 4 MG IVP (15:22)
[2025-01-17] MEDS: LACTATED RINGERS 1000 ML 1,000 ML IV (15:22)
[2025-01-17 16:27] LABS: Hematocrit 40.1 % (33.0-51.0); Hemoglobin* 12.8 gm/dL (12.0-16.0); Immature Granulocytes Abs Auto 0.01 K/uL (0.00-0.30); Immature Granulocytes Pct Auto 0.1 %; Mean Corpuscular HGB Conc 32 gm/dL (32-36); Mean Corpuscular Hemoglobin 31 pg (26-34); Mean Corpuscular Volume 97 fL (80-100); RDW Coefficient of Variation % 13.1 % (11.5-15.5); Red Blood Count 4.15 m/uL (4.00-5.20); White Blood Count* 7.20 K/uL (4.50-11.00)
[2025-01-17 16:31] LABS: Lymphocytes Absolute Auto 0.80 K/uL (0.90-2.90); Slide Review Reflex No
[2025-01-17 16:41] LABS: Troponin, Point-of-Care* 0.02 ng/ml (0.01-0.04)
[2025-01-17 16:50] LABS: Albumin* 4.0 g/dL (3.3-5.0); Chloride* 106 mmol/L (96-114); Potassium* 4.2 mmol/L (3.6-5.1); Sodium* 139 mmol/L (135-149)
[2025-01-17 16:52] LABS: Blood Urea Nitrogen* 27 mg/dL (7-30); Creatinine* 1.4 mg/dL (0.5-1.5); Est. Creatinine Clearance* 24.50; Estimated Glomerular Filt Rate 38 ml/min
[2025-01-17 16:53] LABS: Alanine Aminotransferase* 24 U/L (4-35); Alkaline Phosphatase* 94 U/L (40-150); Anion Gap 9 mEq/L (7-15); Aspartate Amino Transferase* 25 U/L (12-35); Bilirubin Total* 0.6 mg/dL (0.1-1.5); Calcium* 9.8 mg/dL (8.4-10.6); Carbon Dioxide* 24 mmol/L (20-32); Glucose* 135 mg/dL (60-115); Total Protein* 6.4 g/dL (6.0-8.3)
[2025-01-17 17:04] LABS: Lactate* 2.2 mmol/L (0.5-1.9)
--- NOTE | 2025-01-17 20:41 | PM.IMHP1 ---
Assessment and Plan Assessment and plan (1) Diarrhea: Problem comment: - ddx: microscopic colitis, C-diff, biliary dysfunction, viral illness, UTI, iatrogenic, adrenal insufficiency (sx worse after eating more likely to represent colitis/biliary source) - await C-Diff results, UA and culture also pending - reassuring labs and imaging 01/17 - low dose IVFs, + probiotics - pending clinical course, consider addition of bile acid binders, budesonide, etc - recently decreased home dose of Cymbalta, on 1mg daily prednisone (slow taper per EPIC) Status: Acute (2) Syncope: Problem comment: - presumably vasovagal while on the toilet - telemetry, therapy evaluations Status: Acute (3) Weakness: Problem comment: - acute on chronic, likely worsened by diarrhea - therapy evaluations Status: Acute (4) High serum lactate: Problem comment: - presumably 2/2 dehydration, no evidence of sepsis Status: Acute (5) Rheumatoid arthritis: Problem comment: - follows with Dr. Fransisco Eddy through [facility] - on Prednisone 1mg daily, Cymbalta, Neurontin Status: Acute Plan - per above - plan pending test results, clinical course - son and updated bedside, questions answered Hospitalist- H&P: HPI History of Present Illness Date Seen: 01/17/25 Chief complaint: Diarrhea Narrative: Alexandria Bradshaw is a 84 year old female who presented to the ER by ambulance for a syncopal episode. She's been having watery diarrhea after eating for the past 10 days. She was on the phone with a clinic nurse to discuss her symptoms while in the bathroom and became unresponsive. checked on her at that time (he'd been listening in on another line) and found her awake and sitting up but not responding at all. Sadia lanny been eating less since the diarrhea started, since symptoms always worse after eating. No hematochezia, no nausea, no abdominal pain, no fevers. No recent travel, no new or concerning foods, no affected family members. History of recurrent UTIs, last + culture was 12/13 (Citrobacter). This was the last time she was on antibiotics. On 1mg of Prednisone daily per Rheumatology for RA, hasn't missed any doses. Recently decreased her home Cymbalta dose from 60 ->30mg daily. Reports that last colonoscopy was approximately 5 years ago and normal; not interested in ever repeating this. ER: - reassuring VS and CBC - lactate 2.2 - no acute abnormalities on CT of head or A/P - C-diff ordered, not yet collected Admitted for weakness, diarrhea with resultant dehydration, and pre-syncope. and son at bedside. Histories reviewed/updated below, Mervat Garcia is PCP. Review of Systems Status of ROS: Reports: 10 or more systems reviewed and unremarkable except as noted in History and below Medical Decision Making Medical Decision Making Code Status: DNR/DNI Has patient completed a Health Care Directive: Yes During This Stay, Who Would You Like To Make Decisions For You In The Event You Are Unable To Make Them For Yourself?: son Jace is primary decision maker [facility] Medical History (Updated 01/17/25 @ 22:33 by Mai Munoz MD) Rheumatoid arthritis ?M06.9 - Rheumatoid arthritis, unspecified (ICD-10) COVID ?U07.1 - COVID-19 (ICD-10) Impaired mobility ?Z74.09 - Other reduced mobility (ICD-10) Cognitive impairment ?R41.89 - Other symptoms and signs involving cognitive functions and awareness (ICD-10) Stroke ?I63.9 - Cerebral infarction, unspecified (ICD-10) Osteopenia ?M85.80 - Other specified disorders of bone density and structure, unspecified site (ICD-10) Urge incontinence ?N39.41 - Urge incontinence (ICD-10) High cholesterol ?E78.00 - Pure hypercholesterolemia, unspecified (ICD-10) Prediabetes ?R73.03 - Prediabetes (ICD-10) Benign hypertension with CKD (chronic kidney disease) stage III ?I12.9 - Hypertensive chronic kidney disease with stage 1 through stage 4 chronic kidney disease, or unspecified chronic kidney disease (ICD-10) ?N18.30 - Chronic kidney disease, stage 3 unspecified (ICD-10) DVT (deep venous thrombosis) ?I82.409 - Acute embolism and thrombosis of unspecified deep veins of unspecified lower extremity (ICD-10) Obesity (BMI 30-39.9) ?E66.9 - Obesity, unspecified (ICD-10) Colon cancer ?C18.9 - Malignant neoplasm of colon, unspecified (ICD-10) Surgical History History of arthroscopy of right knee ?Z98.890 - Other specified postprocedural states (ICD-10) History of arthroscopy of left shoulder ?Z98.890 - Other specified postprocedural states (ICD-10) History of appendectomy ?Z90.49 - Acquired absence of other specified parts of digestive tract (ICD-10) History of cholecystectomy ?Z90.49 - Acquired absence of other specified parts of digestive tract (ICD-10) Family History Brother Pulmonary embolism Melanoma Liver cancer Father Prostate cancer Lung cancer Mother Heart disease Social History (Updated 01/17/25 @ 22:09 by Mai Munoz MD) Narrative: Patient lives independently with her in [place], son Jace is named as primary decision maker as of 01/17/25. Code status is DNR. is healthcare power of title attorney. Remote history of minimal smoking. Rarely drinks alcohol. What is your current living situation?: I presently have a place to live Problems where you live: no known problems Problems where you live details: none In the past 12 months, utilities in danger of being shut off: no In past 12 months, lack of transportation kept you from medical appts, meetings, work, or getting things needed for daily living: no In the past 12 mos, have been you worried that your food would run out before you had money to buy more?: never true In the past 12 mos, the food you bought just didn't last and you didn't have money to buy more?: never true Highest level of school completed/degree received: some college, no degree Smoking Status: Former smoker Nicotine containing products detail: Back when I was 19 years old. How often do you have a drink containing alcohol: 2-4 times a month How many standard drinks containing alcohol do you have on a typical day: 1 or 2 AUDIT-C Alcohol total score: 2 Non-prescribed substance use: denies use Caffeine: Yes (coffww) How often does anyone, including family, friends and others, physically hurt you: never How often does anyone, including family, friends and others, insult or talk down to you: never How often does anyone, including family, friends and others, threaten you with harm: never How often does anyone, including family, friends and others, scream or curse at you: never service: No Meds Home Medications and Allergies Home Medications ?Medication ?Instructions ?Recorded ?Confirmed ?Type atenolol 25 mg tablet 25 mg PO DAILY 06/22/24 01/17/25 History duloxetine 60 mg capsule,delayed 60 mg PO QPM 06/22/24 01/17/25 History release simvastatin 20 mg tablet 20 mg PO HS 06/22/24 01/17/25 History prednisone 1 mg tablet 1 mg PO DAILY 06/30/24 01/17/25 History gabapentin 300 mg capsule 300 mg PO BID 07/05/24 01/17/25 History acetaminophen 500 mg tablet See Rx Instructions PO Q4-6H PRN 07/14/24 01/17/25 History lisinopril 20 1 tab PO QDAY #90 tabs 09/12/24 01/17/25 Rx mg-hydrochlorothiazide 12.5 mg tablet rivaroxaban 10 mg tablet (Xarelto) 10 mg PO DAILY #90 tabs 12/05/24 01/17/25 Rx duloxetine 30 mg capsule,delayed 30 mg PO QDAY #30 caps 12/29/24 01/17/25 Rx release Allergies Allergy/AdvReac Type Severity Reaction Status Date / Time codeine Allergy Mild Gastrointestinal Verified 01/17/25 17:22 Upset Exam Narrative: Exam Narrative: GEN: Alert and oriented, sitting comfortably in bed HEENT: EOMIs bilaterally, no scleral icterus CV: RRR, No concerning murmurs R: LCTA bilaterally without concerning wheezing Ext: wwp, trace BLE edema Skin: No concerning skin lesions or rashes on exposed skin Neuro: No focal deficits or resting tremor Psych: Appropriate Const: Vital Signs, click to edit/add: Vital Signs - 24 hr 01/17/25 13:55 Temperature 96 F L Pulse Rate [Pulse Oximeter] 60 Respiratory Rate 18 Blood Pressure [Ri ght Upper Arm] 111/82 Pulse Oximetry 96 Oxygen Delivery Me thod Room Air Hospitalist - H&P: Result Labs Labs: Short CBC 01/17/25 Range/Units 16:16 WBC 7.20 (4.50-11.00) K/uL Hgb 12.8 (12.0-16.0) gm/dL Hct 40.1 (33.0-51.0) % Plt Count 220 (140-440) K/uL BMP 01/17/25 16:16 Sodium 139 Potassium 4.2 Chloride 106 Carbon Dioxide 24 BUN 27 Creatinine 1.4 Glucose 135 H Calcium 9.8 Liver Function 01/17/25 Range/Units 16:16 Total Bilirubin 0.6 (0.1-1.5) mg/dL AST 25 (12-35) U/L ALT 24 (4-35) U/L Alkaline Phosphatase 94 (40-150) U/L Albumin 4.0 (3.3-5.0) g/dL
[2025-01-17] MEDS: RIVAROXABAN 10 MG TABLET PO (22:30)
[2025-01-17] MEDS: GABAPENTIN 300 MG CAPSULE PO (22:31)
[2025-01-17] MEDS: SIMVASTATIN 20 MG TABLET PO (22:36)
[2025-01-18] VITALS (11 sets, daily range): BP systolic 137–200; BP diastolic 52–105; PULSE 55–67; RESP 16–18; TEMP 36.4–36.8; O2SAT 94–99; BMI 34.0
--- NOTE | 2025-01-18 00:02 | PC.NURSE ---
The patient arrived to the floor alert and oriented. Hypertensive. MD notified and atenolol given. Complaining of urgency of stool after eating. Reports not having eaten much of anything for ten days as a result. Losing weight. Urinary incontinence as well. Their right big toe is red and hurts with pressure. Stroke in history and while fluent and appropriate in speech their behavior can be somewhat altered at times, requiring redirection. Pain of the abdomen with palpitation. Occasional numbness and tingles of the hands. Uses a walker at baseline. Continuing to watch overnight. ?
[2025-01-18] MEDS: HYDRALAZINE HCL 20 MG/ML inj 10 MG IVP (02:53)
[2025-01-18] MEDS: ACETAMINOPHEN 325 MG TABLET 975 MG PO (03:18)
[2025-01-18 03:53] LABS: Appearance Urine Clear (Clear)
[2025-01-18 06:09] LABS: Lactate* 1.0 mmol/L (0.5-1.9)
[2025-01-18 06:26] LABS: Albumin* 3.6 g/dL (3.3-5.0); Chloride* 108 mmol/L (96-114)
[2025-01-18 06:27] LABS: Potassium* 3.7 mmol/L (3.6-5.1); Sodium* 138 mmol/L (135-149)
[2025-01-18 06:29] LABS: Alanine Aminotransferase* 18 U/L (4-35); Anion Gap 8 mEq/L (7-15); Aspartate Amino Transferase* 26 U/L (12-35); Bilirubin Total* 0.7 mg/dL (0.1-1.5); Blood Urea Nitrogen* 22 mg/dL (7-30); Carbon Dioxide* 22 mmol/L (20-32); Creatinine* 1.1 mg/dL (0.5-1.5); Est. Creatinine Clearance* 31.19; Estimated Glomerular Filt Rate 50 ml/min; Hematocrit 51.1 % (33.0-51.0); Hemoglobin* 16.7 gm/dL (12.0-16.0); Immature Granulocytes Pct Auto 0.7 %; Mean Corpuscular HGB Conc 33 gm/dL (32-36); Mean Corpuscular Hemoglobin 31 pg (26-34); Mean Corpuscular Volume 95 fL (80-100); RDW Coefficient of Variation % 13.0 % (11.5-15.5); Red Blood Count 5.39 m/uL (4.00-5.20); Total Protein* 6.0 g/dL (6.0-8.3); White Blood Count* 4.03 K/uL (4.50-11.00)
[2025-01-18 06:30] LABS: Alkaline Phosphatase* 83 U/L (40-150); Calcium* 9.4 mg/dL (8.4-10.6); Glucose* 86 mg/dL (60-115)
[2025-01-18 06:33] LABS: Immature Granulocytes Abs Auto 0.00 K/uL (0.00-0.30); Lymphocytes Absolute Auto 0.90 K/uL (0.90-2.90); Slide Review Reflex No
--- NOTE | 2025-01-18 06:44 | PC.NURSE ---
pt pleasant through the night able to express needs. Hypertensive and prn med order received from hospitalist which work to decrease htn. patient able to void still requiring stool sample as had no bm overnight.
[2025-01-18] MEDS: DULOXETINE 30 MG CAPSULE DR PO (08:28)
[2025-01-18] MEDS: RIVAROXABAN 10 MG TABLET PO (08:28)
[2025-01-18] MEDS: LACTOBACILLUS ACIDOPHILUS 1 TABLET 1 TAB PO ×3 (08:29→19:05)
[2025-01-18] MEDS: GABAPENTIN 300 MG CAPSULE PO ×3 (08:29→20:51)
[2025-01-18] MEDS: SODIUM CHLORIDE 0.9 % (FLUSH) 10 ML SYRINGE 5 ML IVF ×2 (08:30→19:06)
--- NOTE | 2025-01-18 12:26 | PC.SOCIAL ---
Social Service Consult: chemical worker provided the pt and her family with information on home meal delivery services in the [facility]. Pt and her were thankful for the information. Social work to follow-up as needed.
[2025-01-18 12:57] LABS: H pylori Ag Stool* Negative (Negative)
[2025-01-18 13:21] LABS: C.Difficile Negative (Negative); CDIFFEPI 027 PRESUMPTIVE NEGATIVE (Negative)
--- NOTE | 2025-01-18 15:31 | PM.IMPN1 ---
Assessment and Plan Assessment and plan (1) Diarrhea: Problem comment: - ddx: microscopic colitis, C-diff, biliary dysfunction, viral illness, UTI, iatrogenic, adrenal insufficiency (sx worse after eating more likely to represent colitis/biliary source) - C diff test negative. Stool culture and PCR pending. Check TTG Iga. - reassuring labs and imaging 01/17 Imodium, cholestyramine, encouraged her to eat. Status: Acute (2) Syncope: Problem comment: - presumably vasovagal while on the toilet. Had a similar episode in June. No evidence of seizure activity but did take a while to recover. Consider outpatient neurologic evaluation. - telemetry, therapy evaluations Status: Acute (3) High serum lactate: Problem comment: - presumably 2/2 dehydration, no evidence of sepsis. Normalized with IV fluids Status: Acute (4) Cognitive impairment: Problem comment: [place] score of 16 on 07/30/2024 Status: Acute (5) Asymptomatic bacteriuria: Problem comment: Based on patient's history I believe she has chronic asymptomatic bacteriuria and have recommended she not treat this unless it becomes symptomatic. It is not because of her diarrhea or cognitive issues that she is having. The antibiotics that she is taking for her UTIs may cause diarrhea however. Status: Acute (6) Urge incontinence: Problem comment: Likely not due to urinary tract infection Status: Acute (7) Impaired mobility: Problem comment: Combination of factors including generalized weakness and deconditioning, poor balance but also poor motor planning, not able to use a walker well. It appears poor cognitive function is contributing as much as other factors to impaired mobility. Family has hired someone to be with her during the day. Status: Acute (8) Stroke: Problem comment: Beginning of June she had a CT scan which had abnormality in the right frontal lobe. Outpatient MRI done the day prior to admission which shows that this was an old stroke. MRI also shows other areas of small-vessel ischemic changes and lacunar infarct. Likely contributing to poor balance and weakness. Status: Acute (9) Weakness: Problem comment: - acute on chronic, likely worsened by diarrhea - therapy evaluations Status: Acute (10) Rheumatoid arthritis: Problem comment: - follows with Dr. Fransisco Eddy through [facility] - on Prednisone 1mg daily, Cymbalta, Neurontin Status: Acute (11) DVT (deep venous thrombosis): Problem comment: - LLL 2021, on Rivaroxaban chronically Status: Acute Plan Patient is admitted to the hospital for evaluation of diarrhea and syncope. Will assess for dysrhythmia, syncope or seizure or altered mental status Total Time Spent Total Time Spent: Total time spent today is 65 minutes in reviewing outside records, coordination of care and discussing with patient and son ongoing evaluation management of diarrhea, food intolerance, UTI, cognitive impairment, syncope, impaired gait and balance Subjective Date Seen: 01/18/25 Interval history: 84-year-old female admitted to the hospital with 10 day history of diarrhea and a syncopal episode yesterday well sitting on the toilet with a diarrhea stool. witnessed the event and reported that she was staring ahead with her eyes open but not responding at all. The friend day of hired to care for her was a retired nurse said her pulse was weak and slow. No seizure activity witnessed. It took several minutes for her to come around and even by the time the paramedics arrived she was talking but still cognitive in the not quite back to normal. Patient reports she has been having diarrhea for the last 10 days. It occurs relatively quickly after she eats. She reports she has decreased her eating to avoid diarrhea. She is not having nausea or vomiting. She reports no blood in her stool. She has occasional low abdominal discomfort but no persisting abdominal pain. She has had no fever. She has a history of colon resection for colon cancer. She has apparently had colonoscopy since then which has been reassuring without evidence of recurrence of cancer. Apparently is also never been told she had any type of colitis or abnormal colon mucosa on colonoscopy. I am unable to find colonoscopy records. She denies having problems with chronic diarrhea but her family tells me that she is struggled with this long-term. They have identified a food triggered diarrhea. They report ice cream reliably causes diarrhea. She does not drink milk or eat cheese. For 2 years she tried a gluten free diet which seemed to help as well. She is not aware of any formal testing for diarrhea such as testing for celiac disease or lactose intolerance. She has been regularly treated for urinary tract infections with antibiotics most recently about a week ago with [facility]. She tells me she always has a urinary infection. She notes that sometimes her urine is dark which she thinks represents an infection in some time she has some burning. She has not had complicated infections such as with a fever or flank pain. Exam Narrative: Exam Narrative: She is alert appears in no distress she is of observed to walk with a walker quite efficiently. Speech is normal. She is pleasant and cooperative. Respirations are clear to auscultation. Cardiovascular: S1, S2, regular rate and rhythm. No murmur gallop or rub. Abdomen: Bowel sounds active. Abdomen is soft without tenderness or mass. She moves all extremities well. Const: Vital Signs, click to edit/add: Vital Signs - 24 hr 01/17/25 20:30 01/17/25 20:35 01/17/25 20:41 Temperature 97.9 F Pulse Rate Pulse Rate [Left P ulse Oximeter] 62 Pulse Rate [Right Pulse Oximeter] Respiratory Rate 16 16 Blood Pressure [Le ft Arm] 171/66 H Blood Pressure [Ri ght Arm] 194/83 H Pulse Oximetry 96 [facility] 01/17/25 22:01 01/17/25 22:52 01/17/25 23:00 Temperature 97.5 F L Pulse Rate Pulse Rate [Left P ulse Oximeter] 64 Pulse Rate [Right Pulse Oximeter] Respiratory Rate 16 Blood Pressure [Le ft Arm] Blood Pressure [Ri ght Arm] 182/59 H 194/79 H 194/79 H Pulse Oximetry 99 [facility] 01/18/25 01:07 01/18/25 01:37 01/18/25 03:00 Temperature 98 F Pulse Rate 60 Pulse Rate [Left P ulse Oximeter] Pulse Rate [Right Pulse Oximeter] 62 Respiratory Rate 17 Blood Pressure [Le ft Arm] Blood Pressure [Ri ght Arm] 200/105 H 171/61 H Pulse Oximetry 94 [facility] 01/18/25 03:11 01/18/25 04:33 01/18/25 06:48 Temperature 97.6 F 97.9 F Pulse Rate Pulse Rate [Left P ulse Oximeter] Pulse Rate [Right Pulse Oximeter] 66 64 Respiratory Rate 16 16 Blood Pressure [Le ft Arm] Blood Pressure [Ri ght Arm] 189/68 H 156/57 H 148/58 H Pulse Oximetry 96 98 [facility] Room Air 01/18/25 07:00 01/18/25 07:00 01/18/25 11:00 Temperature 97.5 F L 97.5 F L Pulse Rate 55 L Pulse Rate [Left P ulse Oximeter] Pulse Rate [Right Pulse Oximeter] 62 61 Respiratory Rate 18 18 Blood Pressure [Le ft Arm] 167/60 H 167/70 H Blood Pressure [Ri ght Arm] Pulse Oximetry 97 97 Oxygen Delivery Me thod Room Air Documenting provider has reviewed patient's vital signs: yes Labs Labs: Laboratory Results - last 24 hr 01/17/25 01/17/25 01/17/25 15:04 16:16 Unknown WBC 7.20 RBC 4.15 Hgb 12.8 Hct 40.1 MCV 97 MCH 31 MCHC 32 RDW Coeff of [place] 13.1 Plt Count 220 Neut % (Auto) 81.9 H Lymph % (Auto) 11.3 L [place] % (Auto) 5.7 Eos % (Auto) 0.6 Baso % (Auto) 0.4 Neut # (Auto) 5.90 Lymph # (Auto) 0.80 L [place] # (Auto) 0.40 Eos # (Auto) 0.04 Baso # (Auto) 0.03 Abs Immat Gran (auto) 0.01 Imm/Tot Granulo (auto) 0.1 Sodium 139 Potassium 4.2 Chloride 106 Carbon Dioxide 24 Anion Gap 9 BUN 27 Creatinine 1.4 Estimated Creat Clear 24.50 Estimated GFR 38 Glucose 135 H Lactate 2.2 H Calcium 9.8 Magnesium 1.8 Total Bilirubin 0.6 AST 25 ALT 24 Alkaline Phosphatase 94 Total Protein 6.4 Albumin 4.0 Lipase 29 Urine Color Yellow Urine Appearance Clear Urine pH 5.5 Ur Specific [place] 1.010 Urine Protein Negative Urine Glucose (UA) Negative Urine Ketones 1+ A Urine Blood Negative Urine Nitrite Negative Urine Bilirubin Negative Urine Urobilinogen 0.2 Ur Leukocyte Esterase Negative Urine RBC 0-2 Urine WBC 2-5 Ur Squamous Epith Cells Few Amorphous Sediment Few A Urine Bacteria Few A Stl C. diff Tox B Gene Stl C. diff [id number] Stool H. pylori Ag POC Troponin I 0.02 01/18/25 01/18/25 05:54 12:17 WBC 4.03 L RBC 5.39 H Hgb 16.7 H Hct 51.1 H MCV 95 MCH 31 MCHC 33 RDW Coeff of [place] 13.0 Plt Count 144 Neut % (Auto) 63.8 Lymph % (Auto) 22.8 [place] % (Auto) 9.2 Eos % (Auto) 3.0 Baso % (Auto) 0.5 Neut # (Auto) 2.60 Lymph # (Auto) 0.90 [place] # (Auto) 0.40 Eos # (Auto) 0.10 Baso # (Auto) 0.00 Abs Immat Gran (auto) 0.00 Imm/Tot Granulo (auto) 0.7 Sodium 138 Potassium 3.7 Chloride 108 Carbon Dioxide 22 Anion Gap 8 BUN 22 Creatinine 1.1 Estimated Creat Clear 31.19 Estimated GFR 50 Glucose 86 Lactate 1.0 Calcium 9.4 Magnesium Total Bilirubin 0.7 AST 26 ALT 18 Alkaline Phosphatase 83 Total Protein 6.0 Albumin 3.6 Lipase Urine Color Urine Appearance Urine pH Ur Specific [place] Urine Protein Urine Glucose (UA) Urine Ketones Urine Blood Urine Nitrite Urine Bilirubin Urine Urobilinogen Ur Leukocyte Esterase Urine RBC Urine WBC Ur Squamous Epith Cells Amorphous Sediment Urine Bacteria Stl C. diff Tox B Gene Negative Stl C. diff [id number] PRESUMPTIVE NEGATIVE Stool H. pylori Ag Negative POC Troponin I
--- NOTE | 2025-01-18 15:37 | PC.NURSE ---
End of shift [id number] - Pt alert, oriented, cooperative. Up with standby assistance and walker/gait belt. Tolerating RA and regular diet/fluids. Denies pain and SOB, n/v. Pt reports to RN that she feels better than she has for days. Pt had one small, liquid BM during shift. Appears to be resting comfortably at end of shift with call ligth within reach.
[2025-01-18] MEDS: CHOLESTYRAMINE POWDER 4 GM PO (19:05)
[2025-01-18] MEDS: SIMVASTATIN 20 MG TABLET PO (20:52)
--- NOTE | 2025-01-18 22:58 | PC.NURSE ---
Pt pleasant and cooperative. Up with SBA and walker when IV fluids running. Denies pain, states stomach is turning but doesn't hurt, I think it from me eating so much today. It's the most I've eaten in days. Per pt 2 very small, almost nothing BM today. No complaints and states she hopes to DC to home tomorrow.
[2025-01-19 01:32] VITALS: PULSE 69
[2025-01-19 03:49] VITALS: BP 153/64; PULSE 66; PULSE 96; RESP 15; TEMP 36.4; O2SAT 93
[2025-01-19 05:12] VITALS: BP 150/62; BP 165/62; BP 182/66; PULSE 58; PULSE 60; PULSE 65
--- NOTE | 2025-01-19 05:53 | PC.NURSE ---
Shift note ([id number]): Patient pleasant, alert and oriented. Ambulated with wheeled walker and?stand by assist to bathroom. Orthostatic BP: 165/62 lying, 182/66 sitting and 150/62 standing. Reported feeling lightheaded with?sitting and standing BPs. Stated?lightheadedness had improved after a few minutes. Slept well and denied pain during night. ?
[2025-01-19 07:00] VITALS: PULSE 65; PULSE 68; PULSE 96; RESP 16
[2025-01-19 08:02] VITALS: BP 169/68; PULSE 68; RESP 16; TEMP 36.6; O2SAT 96
[2025-01-19] MEDS: DULOXETINE 30 MG CAPSULE DR PO (09:05)
[2025-01-19] MEDS: LACTOBACILLUS ACIDOPHILUS 1 TABLET 1 TAB PO (09:05)
[2025-01-19] MEDS: SODIUM CHLORIDE 0.9 % (FLUSH) 10 ML SYRINGE 5 ML IVF ×2 (09:05→09:06)
[2025-01-19] MEDS: RIVAROXABAN 10 MG TABLET PO (09:06)
[2025-01-19] MEDS: GABAPENTIN 300 MG CAPSULE PO (09:06)
[2025-01-19] MEDS: ACETAMINOPHEN 325 MG TABLET 975 MG PO (09:10)
--- NOTE | 2025-01-19 11:09 | PM.DS1 ---
DS: Providers Provider Date Seen: 01/19/25 Date of admission: 01/17/25 20:29 Primary care physician: Mervat Garcia CNP Admitting Clinician: Mai Munoz MD Attending Physician on discharge: Joshua Quinones MD Date of Discharge: 01/19/25 DS: Diagnosis Discharge Diagnosis (1) Diarrhea: Status: Acute Problem details: Cause for the diarrhea is uncertain. Initial suspicion was a viral gastroenteritis which has now resolved. Her history suggests she has chronic bowel problems possibly irritable bowel or some form of chronic colitis or some form of chronic food intolerance. Patient reports that ice cream causes diarrhea and she does eat a fair amount of ice cream. This may represent lactose intolerance and I discussed ways of evaluating and treating this including eating less ice cream. Other fluid intolerance is were discussed including gluten intolerance. If ongoing bowel problems I would recommend outpatient gastrointestinal consultation and possible repeat colonoscopy At the time of discharge her C diff test is negative stool cultures and viral stool PCR are pending. Tissue transglutaminase antibody results also pending. Diarrhea resolved during hospital stay. She was started on scheduled daily cholestyramine to see if this would help and also Imodium to use as needed for diarrhea. (2) Syncope: Status: Acute Problem details: She had an episode of syncope or near-syncope while having a diarrhea stool on the toilet. reported she was unresponsive with a blank stare. Slowly return to normal consciousness. Similar episode occurred this past June. If ongoing recurrences consider neurologic consultation. Cardiac monitoring here showed no arrhythmia. (3) High serum lactate: Status: Acute Problem details: - presumably 2/2 dehydration, no evidence of sepsis. Normalized with IV fluids. (4) Asymptomatic bacteriuria: Status: Acute Problem details: Based on patient's history I believe she has chronic asymptomatic bacteriuria and have recommended she not treat this unless it becomes symptomatic. It is not because of her diarrhea or cognitive issues that she is having. The antibiotics that she is taking for her UTIs may cause diarrhea however. (5) Cognitive impairment: Status: Acute Problem details: Putnam score of 16 on 07/30/2024. has arranged for someone to be with her during the day while he is at work (6) Weakness: Status: Acute Problem details: She has chronic weakness and gait instability which is at baseline today. On admission she was worse off likely because of her diarrhea and dehydration. DS: Summary Hospital Course Hospital Course: The HPI: 84-year-old female admitted to the hospital with 10 day history of diarrhea and a syncopal episode yesterday well sitting on the toilet with a diarrhea stool. witnessed the event and reported that she was staring ahead with her eyes open but not responding at all. The friend day of hired to care for her was a retired nurse said her pulse was weak and slow. No seizure activity witnessed. It took several minutes for her to come around and even by the time the paramedics arrived she was talking but still cognitive in the not quite back to normal. Patient reports she has been having diarrhea for the last 10 days. It occurs relatively quickly after she eats. She reports she has decreased her eating to avoid diarrhea. She is not having nausea or vomiting. She reports no blood in her stool. She has occasional low abdominal discomfort but no persisting abdominal pain. She has had no fever. She has a history of colon resection for colon cancer. She has apparently had colonoscopy since then which has been reassuring without evidence of recurrence of cancer. Apparently is also never been told she had any type of colitis or abnormal colon mucosa on colonoscopy. I am unable to find colonoscopy records. She denies having problems with chronic diarrhea but her family tells me that she is struggled with this long-term. They have identified a food triggered diarrhea. They report ice cream reliably causes diarrhea. She does not drink milk or eat cheese. For 2 years she tried a gluten free diet which seemed to help as well. She is not aware of any formal testing for diarrhea such as testing for celiac disease or lactose intolerance. She has been regularly treated for urinary tract infections with antibiotics most recently about a week ago with [facility]. She tells me she always has a urinary infection. She notes that sometimes her urine is dark which she thinks represents an infection in some time she has some burning. She has not had complicated infections such as with a fever or flank pain. 01/19/2025: Patient had 1 small diarrhea stool yesterday and has had no diarrhea since then. She reports she has eaten very well in the last day and is surprising that this did not trigger any further diarrhea. At Home she had been reducing her oral intake because it seemed to trigger diarrhea. She otherwise feels well and is anxious to go home. She started in the hospital on cholestyramine and p.r.n. Imodium. Status at Discharge Functional status at discharge: uses cane/walker Overall status at discharge: patient is progressing back to baseline Time Spent with Patient Time attestation: Total time spent providing and/or coordinating discharge services: Exam Narrative: Exam Narrative: She is alert and appears in no distress. Breathing is unlabored. Abdomen is soft without tenderness or mass. Extremities without edema. Const: Vital Signs, click to edit/add: Vital Signs - 24 hr 01/18/25 16:40 01/18/25 16:40 01/18/25 19:00 Temperature 97.8 F 97.9 F Pulse Rate 64 Pulse Rate [Left P ulse Oximeter] Pulse Rate [Right Pulse Oximeter] 64 65 Pulse Rate [orthos tatic lying] Pulse Rate [orthos tatic sitting Puls e Oximeter] Pulse Rate [orthos tatic standing Pul se Oximeter] Respiratory Rate 18 18 Blood Pressure [Le ft Arm] Blood Pressure [Ri ght Arm] 137/52 L 151/61 H Blood Pressure [or thostatic lying] Blood Pressure [or thostatic sitting Right Arm] Blood Pressure [or thostatic standing Right Arm] Pulse Oximetry 99 98 Oxygen Delivery Me thod Room Air Room Air 01/18/25 23:59 01/19/25 01:32 01/19/25 03:49 Temperature 98.3 F 97.6 F Pulse Rate 69 Pulse Rate [Left P ulse Oximeter] 96 Pulse Rate [Right Pulse Oximeter] 67 66 Pulse Rate [orthos tatic lying] Pulse Rate [orthos tatic sitting Puls e Oximeter] Pulse Rate [orthos tatic standing Pul se Oximeter] Respiratory Rate 18 15 Blood Pressure [Le ft Arm] Blood Pressure [Ri ght Arm] 139/64 153/64 H Blood Pressure [or thostatic lying] Blood Pressure [or thostatic sitting Right Arm] Blood Pressure [or thostatic standing Right Arm] Pulse Oximetry 97 93 Oxygen Delivery Me thod Room Air Room Air 01/19/25 05:12 01/19/25 07:00 01/19/25 07:00 Temperature Pulse Rate 65 Pulse Rate [Left P ulse Oximeter] 96 Pulse Rate [Right Pulse Oximeter] 68 Pulse Rate [orthos tatic lying] 65 Pulse Rate [orthos tatic sitting Puls e Oximeter] 60 Pulse Rate [orthos tatic standing Pul se Oximeter] 58 L Respiratory Rate 16 Blood Pressure [Le ft Arm] Blood Pressure [Ri ght Arm] Blood Pressure [or thostatic lying] 165/62 H Blood Pressure [or thostatic sitting Right Arm] 182/66 H Blood Pressure [or thostatic standing Right Arm] 150/62 H Pulse Oximetry Oxygen Delivery Me thod 01/19/25 08:02 Temperature 97.9 F Pulse Rate Pulse Rate [Left P ulse Oximeter] Pulse Rate [Right Pulse Oximeter] 68 Pulse Rate [orthos tatic lying] Pulse Rate [orthos tatic sitting Puls e Oximeter] Pulse Rate [orthos tatic standing Pul se Oximeter] Respiratory Rate 16 Blood Pressure [Le ft Arm] 169/68 H Blood Pressure [Ri ght Arm] Blood Pressure [or thostatic lying] Blood Pressure [or thostatic sitting Right Arm] Blood Pressure [or thostatic standing Right Arm] Pulse Oximetry 96 Oxygen Delivery Me thod Room Air Documenting provider has reviewed patient's vital signs: yes DS: Data Data Completed and Pending Labs on day of discharge: Labs from last 24 hours 01/18/25 01/18/25 12:17 06:00 Stl C. diff Tox B Gene Negative Stl C. diff [id number] PRESUMPTIVE NEGATIVE Tiss Transglutamin IgA Pending Stool H. pylori Ag Negative Preliminary micro results at discharge 01/17/25 Unknown Urine Culture - Preliminary Urine,Clean Catch < 50,000 COL/ML LACTOBACILLUS SPECIES ISOLATED NO FURTHER WORKUP Imaging CT scan - abdomen: Radiologist's impression: INDICATION: Diarrhea, weakness. TECHNIQUE: CT abdomen and pelvis acquired with 92 cc Isovue 370 IV contrast. COMPARISON: None. FINDINGS: Lower chest: Bibasilar linear opacities likely atelectasis or scarring. Liver: Stable hemangioma in the left hepatic lobe. Stable right hepatic lobe calcification and subcentimeter cysts. Gallbladder and bile ducts: Status post cholecystectomy. Intra and extrahepatic biliary ductal dilatation is noted, increased compared to prior from July 29, 2024. Pancreas: Unremarkable. No mass or inflammation. Spleen: Unremarkable. Normal in size. No masses. Adrenal glands: Unremarkable. No nodules. Kidneys: Unremarkable. No suspicious masses, stones, or hydronephrosis. GI tract: Prior hemicolectomy with right lower quadrant anastomosis. No bowel obstruction. Appendix is absent. Vasculature: Abdominal aorta is normal in caliber. Mesenteric arteries are patent. Mild to moderate calcific atherosclerosis. Calcified splenic artery aneurysm. Lymph nodes: No lymphadenopathy. Peritoneum/Abdominal Wall: Right inguinal fat containing hernia. Small supraumbilical ventral fat containing hernia. Tiny fat containing umbilical hernia. No intra-abdominal free air or free fluid. Pelvis: Calcified exophytic serosal fibroid. Bladder is unremarkable. Uterus is otherwise unremarkable. Bones: Diffuse demineralization of the visualized bones. Diffuse degenerative changes. Scoliosis of the spine. IMPRESSION: 1. No acute intra-abdominal process identified. 2. Stable chronic changes. Discharge Plan Discharge Disposition: Home, Self-Care Date of Admission: 01/17/25 20:29 Attending Provider on Discharge: Raleigh Quinones Primary Care Provider: Mervat Garcia Condition: Improved Anticipated Discharge Date/Time: 01/19/25 10:33 Discharge Medications: New loperamide 2 mg Capsule 2 mg PO QID PRNQty: 30 0RF Cholestyramine Light 4 gram powder 4 g PO DAILY Qty: 210 2RF Rx Instructions: administer w/meal; avoid other meds within 1hr before or 4-6hr after dose Continued gabapentin 300 mg capsule 300 mg PO BID Rx Instructions: 300 MG IN AM, 600 MG IN PM duloxetine 30 mg capsule,delayed release(DR/EC) 30 mg PO DAILY atenolol 25 mg tablet 25 mg PO DAILY simvastatin 20 mg tablet 20 mg PO HS prednisone 1 mg tablet 1 mg PO DAILY acetaminophen 500 mg tablet See Rx Instructions PO Q4-6H PRN Rx Instructions: 1-2 tablets orally every 4-6 hours PRN; Not to exceed 6 tablets in 24 hours. lisinopril-hydrochlorothiazide 20-12.5 mg tablet 1 tab PO QDAY Qty: 90 3RF Xarelto 10 mg tablet 10 mg PO DAILY Qty: 90 1RF Discharge Orders: Discharge Order (Routine); Ordered 01/19/25 Ordered By: Raleigh Quinones Additional Instructions: For your history of problems with diarrhea I recommend the following: Identify if dairy products make this worse. If they do you can try Lactaid or lactose-free dairy products. Trying to identify other foods that cause diarrhea is more difficult and likely will require the assistance of a dietitian or your medical provider. Take cholestyramine once a day with food. It often helps with diarrhea. Eat more soluble fiber. Use Imodium as needed for diarrhea If you have ongoing problems with diarrhea consider returning to your mentally retarded teacher for evaluation and possibly a repeat colonoscopy. You have been correctly diagnosed with urinary tract infections in the past. I recommend against treating urinary tract infections unless you have specific symptoms of urinary tract infection including pain with urination and fever. If you are not feeling right or your urine is darker I would not immediately assume you have a urinary infection the needs to be treated. Activity Level: Activity as Tolerated and Use Walker Discharge Diet: High Fiber Follow Up Appointments: Mervat Garcia CNP [Primary Care Provider, Family Practice] Referral Note: Follow-up in 1 week for recheck. Follow-up stool tests and tissue transglutaminase antibody test in 1 week Forms: [employer] Info Instructions
--- NOTE | 2025-01-19 12:32 | PC.NURSE ---
Pt doing well today. VSS. Denies pain. Reports mild, however improved abdominal tenderness. Pt tolerating regular diet. Pt has not had diarrhea today. Pt denies dizziness and lightheadedness with activity. Pt tolerating ambulation with walker well. Pt signed discharge instructions and pt belongings. Pt discharged home via daughter at 1220.
[2025-01-20 23:31] LABS: Tissue Transglutaminase Ab,IgA <1.02 FLU (0.00-4.99)
== END 2025-01-19 12:20 | disposition home or self-care (01) ==
LOC: ED 19:52 → MEDSURG 20:31
PROVIDERS: Family Medicine; Admitting Provider Family Medicine; Emergency Provider Emergency Medicine; PCP Nurse Practitioner Family; Visit Provider Family Medicine
DX: R19.7 Diarrhea, unspecified (principal); R55 Syncope and collapse; R74.02 Elevation of levels of lactic acid dehydrogenase [LDH]; R82.71 Bacteriuria; R53.1 Weakness
CPT/HCPCS: 36415; 70450; 74177; 80053; 81001; 83516; 83605; 83690; 83735; 84484; 85025; 87045; 87046; 87086; 87252; 87338; 87427; 87493; 93005; 96374; 96375; 97161; 97165; 97535; 99283; 99285; A9270; G0378; J0360; J2405; J7030; J7120; J7512; Q9967

== ENCOUNTER 2025-02-07 13:46 | Observation (INO) | payer MEDICARE, SELFPAY ==
[2025-02-07] VITALS (14 sets, daily range): BP systolic 103–179; BP diastolic 53–100; PULSE 54–67; RESP 16–18; TEMP 36.4–36.6; O2SAT 95–100
--- NOTE | 2025-02-07 14:02 | CRLHL7_ITS ---
For Patients: As a result of the Century Cures Act, medical imaging exams and procedure reports are released immediately into your electronic medical record. You may view this report before your referring provider. If you have questions, please contact your health care provider. INDICATION: Dizziness, syncope TECHNIQUE: Noncontrast axial CT of the head. Coronal and sagittal reformats. Bone and soft tissue algorithms. COMPARISON: CT head 01/17/2025 FINDINGS: The ventricles and cortical sulci appear stable in configuration. Redemonstration of confluent regions of hypoattenuation throughout the cerebral white matter, nonspecific, but typical of chronic microangiopathy. Hernandez-white matter differentiation appears preserved. No acute intracranial hemorrhage or abnormal extra-axial fluid collection identified. No midline shift or herniation. Partially empty sella configuration. Calcific intracranial atherosclerotic plaquing. Intact calvarium. Clear visualized paranasal sinuses and mastoid air cells. Bilateral lens implants. IMPRESSION: 1. No CT evidence of acute intracranial abnormality or significant interval change relative to 01/17/2025. Please note that all CT scans at this facility use dose modulation, iterative reconstruction, and/or weight-based dosing when appropriate to reduce radiation dose to as low as reasonably achievable. Dictated by Joellen Gardner MD @ 02/07/2025 2:53:23 PM (Electronically Signed)
--- NOTE | 2025-02-07 14:10 | ED.GENADULT ---
HPI - General Adult General Chief complaint: Syncope/Fainted Stated complaint: Fainting Time Seen by Provider: 02/07/25 13:54 History of Present Illness HPI narrative: Patient is a 84 white female lives with her family, had a episode where she was felt little upset her stomach and she sat down the have a bowel movement and had a syncopal episode. She was brought in by ambulance. She has had a little bit upset stomach but no significant pain she has field felt a little ?woozy today?. She lives with her family. She has had history of strokes in the past. She has cognitive impairment. She has stage 3 kidney disease. She has chronic weakness. She is on Xarelto for DVT. Does not report any head injury or pain in her body. She has had no dysuria, frequency, chest pain or cough. Related Data Home Medications ?Medication ?Instructions ?Recorded ?Confirmed atenolol 25 mg tablet 25 mg PO DAILY 06/22/24 02/07/25 prednisone 1 mg tablet 1 mg PO DAILY 06/30/24 02/07/25 gabapentin 300 mg capsule 300 - 600 mg PO BID 07/05/24 02/07/25 acetaminophen 500 mg tablet See Rx Instructions PO Q4-6H PRN 07/14/24 02/07/25 duloxetine 30 mg capsule,delayed 30 mg PO DAILY 01/18/25 02/07/25 release colestipol 1 gram tablet 1 g PO BID 02/07/25 02/07/25 loperamide 2 mg capsule 2 mg PO DAILY 02/07/25 02/07/25 Previous Rx's ?Medication ?Instructions ?Recorded rivaroxaban 10 mg tablet (Xarelto) 10 mg PO DAILY #90 tabs 12/05/24 cholestyramine 4 gram oral powder 4 g PO DAILY #210 grams 01/19/25 (Cholestyramine Light) simvastatin 20 mg tablet 20 mg PO HS #90 tabs 02/02/25 cefpodoxime 100 mg tablet 100 mg PO BID #10 tabs 02/08/25 lisinopril 20 mg tablet 20 mg PO DAILY #30 tabs 02/08/25 Allergies Allergy/AdvReac Type Severity Reaction Status Date / Time codeine Allergy Mild Gastrointestinal Verified 02/07/25 13:52 Upset Review of Systems Status of ROS: Reports: 6 or more systems reviewed and unremarkable except as noted in History and below PFSH [facility] Medical History Venous insufficiency (chronic) (peripheral) ?I87.2 - Venous insufficiency (chronic) (peripheral) (ICD-10) History of diarrhea ?Z87.898 - Personal history of other specified conditions (ICD-10) Hyperlipidemia ?E78.5 - Hyperlipidemia, unspecified (ICD-10) DVT (deep venous thrombosis) ?I82.409 - Acute embolism and thrombosis of unspecified deep veins of unspecified lower extremity (ICD-10) Asymptomatic bacteriuria ?R82.71 - Bacteriuria (ICD-10) Rheumatoid arthritis ?M06.9 - Rheumatoid arthritis, unspecified (ICD-10) COVID ?U07.1 - COVID-19 (ICD-10) Impaired mobility ?Z74.09 - Other reduced mobility (ICD-10) Cognitive impairment ?R41.89 - Other symptoms and signs involving cognitive functions and awareness (ICD-10) Stroke ?I63.9 - Cerebral infarction, unspecified (ICD-10) Osteopenia ?M85.80 - Other specified disorders of bone density and structure, unspecified site (ICD-10) Urge incontinence ?N39.41 - Urge incontinence (ICD-10) High cholesterol ?E78.00 - Pure hypercholesterolemia, unspecified (ICD-10) Prediabetes ?R73.03 - Prediabetes (ICD-10) Benign hypertension with CKD (chronic kidney disease) stage III ?I12.9 - Hypertensive chronic kidney disease with stage 1 through stage 4 chronic kidney disease, or unspecified chronic kidney disease (ICD-10) ?N18.30 - Chronic kidney disease, stage 3 unspecified (ICD-10) Obesity (BMI 30-39.9) ?E66.9 - Obesity, unspecified (ICD-10) Colon cancer ?C18.9 - Malignant neoplasm of colon, unspecified (ICD-10) Surgical History History of arthroscopy of right knee ?Z98.890 - Other specified postprocedural states (ICD-10) History of arthroscopy of left shoulder ?Z98.890 - Other specified postprocedural states (ICD-10) History of appendectomy ?Z90.49 - Acquired absence of other specified parts of digestive tract (ICD-10) History of cholecystectomy ?Z90.49 - Acquired absence of other specified parts of digestive tract (ICD-10) Family History Brother Pulmonary embolism Melanoma Liver cancer Father Prostate cancer Lung cancer Mother Heart disease Social History Narrative: Patient lives independently with her in [place], son Jace is named as primary decision maker as of 01/17/25. Code status is DNR. 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 Remote history of minimal smoking. Rarely drinks alcohol. What is your current living situation?: I presently have a place to live Problems where you live: no known problems Problems where you live details: none In the past 12 months, utilities in danger of being shut off: no In past 12 months, lack of transportation kept you from medical appts, meetings, work, or getting things needed for daily living: no In the past 12 mos, have been you worried that your food would run out before you had money to buy more?: never true In the past 12 mos, the food you bought just didn't last and you didn't have money to buy more?: never true Highest level of school completed/degree received: some college, no degree Smoking Status: Former smoker What tobacco products do you use: cigarettes Years smoked: 3 Smoking quit date/years: >15 years ago Do you use any of these nicotine containing products: None Nicotine containing products detail: Back when I was 19 years old. Second hand tobacco smoke exposure: No How often do you have a drink containing alcohol: 2-4 times a month Alcohol type: hard liquor How many standard drinks containing alcohol do you have on a typical day: 1 or 2 How often do you have six or more drinks on one occasion: Never AUDIT-C Alcohol total score: 2 Non-prescribed substance use: denies use Caffeine: Yes (coffww) How often does anyone, including family, friends and others, physically hurt you: never How often does anyone, including family, friends and others, insult or talk down to you: never How often does anyone, including family, friends and others, threaten you with harm: never How often does anyone, including family, friends and others, scream or curse at you: never service: No Exam Narrative: Exam Narrative: Objective: Patient's vital signs look within normal limits Alert and oriented to person place She is cooperative pleasant does not appear in distress noncyanotic HEENT shows moist mucous membranes in the mouth no facial asymmetry neck is supple she has no pronator drift in her arms and moves her legs fully. Pulses regular. 2/6 systolic ejection murmur Extremities are no edema neurologic nonfocal. Good peripheral perfusion noted. Const: Vital Signs, click to edit/add: Vital Signs - 24 hr 02/07/25 13:49 Temperature 97.6 F Pulse Rate [Right Pulse Oximeter] 56 L Respiratory Rate 18 Blood Pressure [Ri ght Upper Arm] 108/56 L Pulse Oximetry 95 Oxygen Delivery Me thod Room Air Course Vital Signs Vital signs: Initial Vital Signs Temperature 97.6 F 02/07/25 13:49 Temperature Source Temporal Artery Scan 02/07/25 13:49 Pulse Rate 56 L 02/07/25 13:49 Pulse Rhythm Regular 02/07/25 13:49 Pulse Strength 3+ Normal 02/07/25 13:49 Respiratory Rate 18 02/07/25 13:49 Blood Pressure 108/56 L 02/07/25 13:49 Blood Pressure Mean 73 02/07/25 13:49 Blood Pressure Position Semi-Fowlers 02/07/25 13:49 Pulse Oximetry 95 02/07/25 13:49 Oxygen Delivery Method Room Air 02/07/25 13:49 Vital Signs Temperature 97.6 F 02/07/25 13:49 Pulse Rate 56 L 02/07/25 13:49 Respiratory Rate 18 02/07/25 13:49 Blood Pressure 108/56 L 02/07/25 13:49 Pulse Oximetry 95 02/07/25 13:49 Oxygen Delivery Method Room Air 02/07/25 13:49 Temperature 97.6 F 02/08/25 11:00 Pulse Rate 50 L 02/08/25 11:00 Respiratory Rate 18 02/08/25 11:00 Blood Pressure 159/94 H 02/08/25 11:00 Pulse Oximetry 98 02/08/25 11:00 Oxygen Delivery Method Room Air 02/08/25 11:00 Medications Administered Medications: Discontinued Medications Generic Name Dose Route Start Last Admin Trade Name Freq PRN Reason Stop Dose Admin Acetaminophen 650 mg 02/07/25 19:32 08/20/25 20:26 Acetaminophen 325 Mg Tablet PO 650 mg Q6H PRN Administration Atenolol 12.5 mg 02/08/25 09:00 02/08/25 09:49 Atenolol 25 Mg Tablet PO 12.5 mg DAILY JOSUE Administration Cholestyramine Resin 4 gm 02/08/25 09:00 02/08/25 09:51 Cholestyramine Powder 4 Gm PO Not Given DAILY JOSUE Duloxetine HCl 30 mg 02/08/25 09:00 02/08/25 09:49 [address] PO 30 mg DAILY JOSUE Administration Gabapentin 300 mg 02/07/25 21:00 02/08/25 08:28 Gabapentin 300 Mg Capsule PO 300 mg BID JOSUE Administration Sodium Chloride 500 mls @ 500 mls/hr 02/07/25 14:07 02/07/25 16:28 0.9 % Sodium Chloride 500 Ml IV 02/07/25 15:06 Infused .Q1H ONE Infusion Sodium Chloride 1,000 mls @ 125 mls/hr 02/07/25 19:32 02/08/25 12:45 0.9 % Sodium Chloride 1000 Ml IV 02/08/25 11:31 Infused .Q8H JOSUE Infusion Lisinopril 20 mg 02/08/25 09:00 02/08/25 09:49 Lisinopril 20 Mg Tablet PO 20 mg DAILY JOSUE Administration Loperamide HCl 2 mg 02/08/25 09:00 02/08/25 09:50 Loperamide Hcl 2 Mg Capsule PO 2 mg DAILY JOSUE Administration Colestipol 1 Gram 1 gm 02/07/25 21:00 02/08/25 09:50 Tablet PO 1 gm BID JOSUE Administration Prednisone 1 mg 02/08/25 09:00 02/08/25 09:50 Prednisone 1 Mg Tablet PO 1 mg DAILY JOSUE Administration Rivaroxaban 10 mg 02/08/25 09:00 02/08/25 09:50 Rivaroxaban 10 Mg Tablet PO 10 mg DAILY JOSUE Administration Simvastatin 20 mg 02/07/25 21:00 02/07/25 20:26 Simvastatin 20 Mg Tablet PO 20 mg HS JOSUE Administration Sodium Chloride 5 ml 02/07/25 21:00 02/08/25 09:51 Sodium Chloride 0.9 % (Flush) 10 Ml Syringe IVF 5 ml BID JOSUE Administration Medical Decision Making MDM Narrative Medical decision making narrative: 84-year-old female with a history of stroke, history of some a couple of syncopal episodes, with stage 3 kidney disease and cognitive impairment presents with a syncopal episode. This sounds really like a vasovagal type spell. Will rehydrate her tonight today, check a CT scan to make sure there is no been no acute stroke, and check laboratory studies and a urinalysis. Will also check an EKG and actually that is here present and shows by my read sinus bradycardia rate of 58 beats per minute occasional PAC left anterior anterior fascicular block. CT scan of the head is pending as well as laboratory electrolyte problems, diff differential would include urinary tract infection electrolyte or metabolic abnormality, HEALTH CARE ATTORNEY issue such as stroke. Will will place the patient on teletypesetter monitor and order the above-mentioned studies. Addendum 3:00 p.m.: No changes from comparison CT scan of the head. No acute stroke or bleed. Chronic white matter changes. EKG shows sinus bradycardia rate of 58 beats per minute left anterior fascicular block by my read. Patient is on atenolol. Lactate minimally elevated at 2.6, the patient does appear mildly dry. White count and hemoglobin are normal, point of care troponin is negative. Social Service will consult the patient regarding potential advanced placement. Also would have her hold her atenolol at this time. This in lieu of her being mildly dry and perhaps she could get vagal a little more easily with lower blood pressure and low volume. I think will rehydrate her and make sure she can ambulate okay. Would stop the atenolol as mention for now. Addendum 3:40 p.m. the patient got up went to the bathroom, they did notice nursing staff what alertly noted a 20-30 point drop in her blood pressure. She would be unsafe to go home with this and I think she needs hospitalization for this. Discussed with our hospitalist Dr. Turner who recommended observation status. Patient likely needs adjusted her medications and consideration of more advanced living arrangement if this would be a continued issue. Medication management as well. Family is comfortable plan. Social Service has met with them in the ER regarding options. Lab Data Labs: Lab Results 02/07/25 02/07/25 Range/Units 14:03 14:16 WBC 6.82 (4.50-11.00) K/uL RBC 3.96 L (4.00-5.20) m/uL Hgb 12.5 (12.0-16.0) gm/dL Hct 39.0 (33.0-51.0) % MCV 99 (80-100) fL MCH 32 (26-34) pg MCHC 32 (32-36) gm/dL RDW Coeff of Rowan 13.0 (11.5-15.5) % Plt Count 275 (140-440) K/uL Neut % (Auto) 81.5 H (42.0-72.0) % Lymph % (Auto) 10.4 L (20-44) % Richardson % (Auto) 6.2 (0.0-11.0) % Eos % (Auto) 1.5 (0.0-7.0) % Baso % (Auto) 0.3 (0.0-3.0) % Neut # (Auto) 5.60 (1.7-7.0) K/uL Lymph # (Auto) 0.70 L (0.90-2.90) K/uL Richardson # (Auto) 0.40 (0.00-0.90) K/UL Eos # (Auto) 0.10 (0.00-0.50) K/uL Baso # (Auto) 0.02 (0.00-0.30) K/uL Abs Immat Gran (auto) 0.01 (0.00-0.30) K/uL Imm/Tot Granulo (auto) 0.1 % INR 1.42 H (0.91-1.10) APTT 30 (23-33) Seconds Sodium 138 (135-149) mmol/L Potassium 4.2 (3.6-5.1) mmol/L Chloride 104 (96-114) mmol/L Carbon Dioxide 26 (20-32) mmol/L Anion Gap 8 (7-15) mEq/L BUN 34 H (7-30) mg/dL Creatinine 1.4 (0.5-1.5) mg/dL Estimated GFR 38 ml/min Glucose 165 H (60-115) mg/dL Lactate 2.6 H (0.5-1.9) mmol/L Calcium 9.7 (8.4-10.6) mg/dL Total Bilirubin 0.8 (0.1-1.5) mg/dL Direct Bilirubin 0.3 (0.0-0.5) mg/dL AST 29 (12-35) U/L ALT 16 (4-35) U/L Alkaline Phosphatase 61 (40-150) U/L C-Reactive Protein 0.7 (0.5-1.0) mg/dL Total Protein 7.1 (6.0-8.3) g/dL Albumin 4.2 (3.3-5.0) g/dL SARS-CoV-2 (PCR) Negative SARS-CoV-2 (Negative) Influenza Type A (PCR) Negative PCR FLU A (Negative) Influenza Type B (PCR) Negative PCR FLU B (Negative) RSV (PCR) Negative PCR RSV (Negative) POC Troponin I 0.01 (0.01-0.04) ng/ml Discharge Plan Discharge Clinical Impression: Episode of syncope, Vasovagal syncope Patient Disposition: Home w/ Parent or Adult Condition: Improved Activity Level: Light activity Discharge Diet: Regular
[2025-02-07] MEDS: 0.9 % SODIUM CHLORIDE 500 ML 500 ML IV (14:20)
[2025-02-07 14:30] LABS: Lactate* 2.6 mmol/L (0.5-1.9)
[2025-02-07 14:37] LABS: Hematocrit 39.0 % (33.0-51.0); Hemoglobin* 12.5 gm/dL (12.0-16.0); Immature Granulocytes Abs Auto 0.01 K/uL (0.00-0.30); Immature Granulocytes Pct Auto 0.1 %; Mean Corpuscular HGB Conc 32 gm/dL (32-36); Mean Corpuscular Hemoglobin 32 pg (26-34); Mean Corpuscular Volume 99 fL (80-100); RDW Coefficient of Variation % 13.0 % (11.5-15.5); Red Blood Count 3.96 m/uL (4.00-5.20); White Blood Count* 6.82 K/uL (4.50-11.00)
[2025-02-07 14:41] LABS: Troponin, Point-of-Care* 0.01 ng/ml (0.01-0.04)
[2025-02-07 14:41] LABS: Lymphocytes Absolute Auto 0.70 K/uL (0.90-2.90); Slide Review Reflex No
[2025-02-07 15:00] LABS: INR 1.42 (0.91-1.10); Prothrombin Time 18.3 Seconds
[2025-02-07 15:03] LABS: Albumin* 4.2 g/dL (3.3-5.0); Chloride* 104 mmol/L (96-114)
[2025-02-07 15:04] LABS: Potassium* 4.2 mmol/L (3.6-5.1); Sodium* 138 mmol/L (135-149)
[2025-02-07 15:06] LABS: Blood Urea Nitrogen* 34 mg/dL (7-30); Creatinine* 1.4 mg/dL (0.5-1.5); Estimated Glomerular Filt Rate 38 ml/min
[2025-02-07 15:07] LABS: Alanine Aminotransferase* 16 U/L (4-35); Alkaline Phosphatase* 61 U/L (40-150); Anion Gap 8 mEq/L (7-15); Aspartate Amino Transferase* 29 U/L (12-35); Bilirubin Direct* 0.3 mg/dL (0.0-0.5); Bilirubin Total* 0.8 mg/dL (0.1-1.5); Calcium* 9.7 mg/dL (8.4-10.6); Carbon Dioxide* 26 mmol/L (20-32); Glucose* 165 mg/dL (60-115); Total Protein* 7.1 g/dL (6.0-8.3)
[2025-02-07 15:18] LABS: PCR FLU A Negative PCR FLU A (Negative); PCR FLU B Negative PCR FLU B (Negative); PCR RSV Negative PCR RSV (Negative); SARS PCR* Negative SARS-CoV-2 (Negative)
--- NOTE | 2025-02-07 16:07 | PC.SOCIAL ---
Addendum entered by COURTNEY Dubose 02/07/25 16:24: Discharge planning: [facility] confirmation number for referral is as follows [id number]. Social work to follow-up as needed. Original Note: Social work consult: rodding anode worker met with the pt, her , adult daughter and adult grandson this afternoon in the ED. rodding anode worker provided the pt and her family with information on starting the process of getting into an Assisted Living Facility. rodding anode worker also submitted a referral to the [facility] to follow-up with the pt and her family about assisted living/housing options and planning ahead for payment of the Assisted Living Facility. Pt and her family were thankful for the information. Social work to follow-up as needed.
--- NOTE | 2025-02-07 19:29 | PM.IMHP1 ---
Assessment and Plan Assessment and plan (1) Vasovagal syncope: Problem comment: - micturition/defication syncope in dehydrated state - monitor on telemetry - PT and OT consult - discussed need for her to have help when she goes to the bathroom Status: Acute (2) Orthostatic hypotension: Problem comment: - likely due to dehydration from diuresis, decreased oral intake - stop furosemide her PCP prescribed for LE edema, decrease dose of gabapentin which can cause LE edema, stop HCTZ - IVF rehydration and monitor weights and orthostatic BP and HR - PT and OT consult - Reception[employer] consultation regarding adequate hydration and solute consumption Status: Acute (3) History of diarrhea: Problem comment: - adequately managed with current efforts - working with package sorter Status: Acute (4) Venous insufficiency (chronic) (peripheral): Problem comment: - stop furosemide and other diuretics for LE edema - recommended prescription compression stockings or prescription velcro compression for LEs in outpatient setting - discussed briefly other outpatient treatment intervention options, which she is not interested in Status: Acute (5) Dehydration, moderate: Problem comment: - likely due to furosemide 20 mg po daily for past 5 days for chronic LE edema, plus HCTZ for HTN, plus decreased oral intake - presented with vasovagal syncope, orthostatic hypotension, elevated creatinine and BUN - stopped furosemide and HCTZ - IVF and monitor weights and orthostatic vitals Status: Acute (6) Left ventricular hypertrophy by electrocardiogram: Problem comment: - check echocardiogram to assess for possible outlet obstruction, cardiomyopathy, valvular disease Status: Acute Plan 1. Reviewed impression, plans, recommendations with patient, family 2. Answered their questions to their satisfaction 3. Continue with other supportive efforts 4. Will need outpatient follow-up regarding chronic concerns and medication adjustments currently being made 5. Patient and family agreeable Total Time Spent Total Time Spent: 60 minutes Hospitalist- H&P: HPI History of Present Illness Date Seen: 02/07/25 Chief complaint: Weakness Narrative: Alexandria Bradshaw is a 84 year old woman presents to the emergency department with her family this afternoon for assessment of syncopal episode while on the toilet urinating and defecating. She does not recall having a premonition about this. She felt the urge to evacuate and went to the bathroom. Her daughter was in the home with her. They were communicating through the bathroom door for a while and the patient was indicating she was doing well. After while the patient did not respond to the daughter trying to talk with her and when the daughter entered her mother was slumped over still sitting on the toilet. At this juncture family called EMS who brought her into the emergency department for further assessment. In hindsight patient acknowledges orthostatic dizziness today. Patient family concerned that patient does not drink adequately. Patient acknowledges that she saw her primary care physician recently who prescribed 5 days worth of furosemide 20 mg once daily for lower extremity edema which patient just finished yesterday. Patient also ordinarily takes hydrochlorothiazide 12.5 mg daily with her lisinopril. (Historically patient has been told she has chronic peripheral venous insufficiency and has been prescribed compression stockings but she does not utilize these.) Patient recently hospitalized for diarrhea and dehydration. The diarrhea has since resolved. She did see her package sorter about this who prescribed Imodium for her. Does have occasional episodes of loose stools perhaps 1 or twice a week a week. No recent diarrhea. No recent fevers, rigors, diaphoresis. No recent dysuria, urgency, frequency, hematuria. No trauma or injury including from today's episode. No recent travel. No recent blood loss. Review of Systems Status of ROS: Reports: 6 or more systems reviewed and unremarkable except as noted in History and below Medical Decision Making Medical Decision Making Code Status: Full resuscitation Has patient completed a Health Care Directive: Yes [facility] Medical History Venous insufficiency (chronic) (peripheral) ?I87.2 - Venous insufficiency (chronic) (peripheral) (ICD-10) History of diarrhea ?Z87.898 - Personal history of other specified conditions (ICD-10) Hyperlipidemia ?E78.5 - Hyperlipidemia, unspecified (ICD-10) DVT (deep venous thrombosis) ?I82.409 - Acute embolism and thrombosis of unspecified deep veins of unspecified lower extremity (ICD-10) Asymptomatic bacteriuria ?R82.71 - Bacteriuria (ICD-10) Rheumatoid arthritis ?M06.9 - Rheumatoid arthritis, unspecified (ICD-10) COVID ?U07.1 - COVID-19 (ICD-10) Impaired mobility ?Z74.09 - Other reduced mobility (ICD-10) Cognitive impairment ?R41.89 - Other symptoms and signs involving cognitive functions and awareness (ICD-10) Stroke ?I63.9 - Cerebral infarction, unspecified (ICD-10) Osteopenia ?M85.80 - Other specified disorders of bone density and structure, unspecified site (ICD-10) Urge incontinence ?N39.41 - Urge incontinence (ICD-10) High cholesterol ?E78.00 - Pure hypercholesterolemia, unspecified (ICD-10) Prediabetes ?R73.03 - Prediabetes (ICD-10) Benign hypertension with CKD (chronic kidney disease) stage III ?I12.9 - Hypertensive chronic kidney disease with stage 1 through stage 4 chronic kidney disease, or unspecified chronic kidney disease (ICD-10) ?N18.30 - Chronic kidney disease, stage 3 unspecified (ICD-10) Obesity (BMI 30-39.9) ?E66.9 - Obesity, unspecified (ICD-10) Colon cancer ?C18.9 - Malignant neoplasm of colon, unspecified (ICD-10) Surgical History History of arthroscopy of right knee ?Z98.890 - Other specified postprocedural states (ICD-10) History of arthroscopy of left shoulder ?Z98.890 - Other specified postprocedural states (ICD-10) History of appendectomy ?Z90.49 - Acquired absence of other specified parts of digestive tract (ICD-10) History of cholecystectomy ?Z90.49 - Acquired absence of other specified parts of digestive tract (ICD-10) Family History Brother Pulmonary embolism Melanoma Liver cancer Father Prostate cancer Lung cancer Mother Heart disease Social History Narrative: Patient lives independently with her in [place], son Jace is named as primary decision maker as of 01/17/25. Code status is DNR. is healthcare power of environmental attorney. Remote history of minimal smoking. Rarely drinks alcohol. What is your current living situation?: I presently have a place to live Problems where you live: no known problems Problems where you live details: none In the past 12 months, utilities in danger of being shut off: no In past 12 months, lack of transportation kept you from medical appts, meetings, work, or getting things needed for daily living: no In the past 12 mos, have been you worried that your food would run out before you had money to buy more?: never true In the past 12 mos, the food you bought just didn't last and you didn't have money to buy more?: never true Highest level of school completed/degree received: some college, no degree Smoking Status: Former smoker What tobacco products do you use: cigarettes Years smoked: 3 Smoking quit date/years: >15 years ago Do you use any of these nicotine containing products: None Nicotine containing products detail: Back when I was 19 years old. Second hand tobacco smoke exposure: No How often do you have a drink containing alcohol: 2-4 times a month Alcohol type: hard liquor How many standard drinks containing alcohol do you have on a typical day: 1 or 2 How often do you have six or more drinks on one occasion: Never AUDIT-C Alcohol total score: 2 Non-prescribed substance use: denies use Caffeine: Yes (coffww) How often does anyone, including family, friends and others, physically hurt you: never How often does anyone, including family, friends and others, insult or talk down to you: never How often does anyone, including family, friends and others, threaten you with harm: never How often does anyone, including family, friends and others, scream or curse at you: never service: No Meds Home Medications and Allergies Home Medications ?Medication ?Instructions ?Recorded ?Confirmed ?Type atenolol 25 mg tablet 25 mg PO DAILY 06/22/24 02/07/25 History prednisone 1 mg tablet 1 mg PO DAILY 06/30/24 02/07/25 History gabapentin 300 mg capsule 300 - 600 mg PO BID 07/05/24 02/07/25 History acetaminophen 500 mg tablet See Rx Instructions PO Q4-6H PRN 07/14/24 02/07/25 History lisinopril 20 1 tab PO QDAY #90 tabs 09/12/24 02/07/25 Rx mg-hydrochlorothiazide 12.5 mg tablet rivaroxaban 10 mg tablet (Xarelto) 10 mg PO DAILY #90 tabs 12/05/24 02/07/25 Rx duloxetine 30 mg capsule,delayed 30 mg PO DAILY 01/18/25 02/07/25 History release cholestyramine 4 gram oral powder 4 g PO DAILY #210 grams 01/19/25 02/07/25 Rx (Cholestyramine Light) simvastatin 20 mg tablet 20 mg PO HS #90 tabs 02/02/25 02/07/25 Rx colestipol 1 gram tablet 1 g PO BID 02/07/25 02/07/25 History loperamide 2 mg capsule 2 mg PO DAILY 02/07/25 02/07/25 History Home Medication Comments: Patient has been on furosemide 20 mg once daily for the past 5 days, last dose yesterday, prescribed by her primary care physician for chronic peripheral venous insufficiency and edema associated there with. Allergies Allergy/AdvReac Type Severity Reaction Status Date / Time codeine Allergy Mild Gastrointestinal Verified 02/07/25 13:52 Upset Exam Narrative: Exam Narrative: Examined patient in her hospital room. Appears comfortable and in no acute distress. Sitting on her bed with legs extended in front of her and head of bed elevated at 60?. Friendly, articulate, cooperative. Alert and oriented x4. In the emergency department she had a resting supine systolic blood pressure of 142. On sitting her systolic blood pressure dropped down to 114. Did complain of lightheadedness with this postural change. Lungs are clear to auscultation. Heart tones with regular rhythm. Abdomen with active bowel sounds, soft, nontender. Bilateral lower extremity chronic peripheral venous insufficiency changes including superficial varicose veins with hemosiderin deposition. No open wounds. No obvious edema at this time. No focal motor neurologic deficits. Const: Vital Signs, click to edit/add: Vital Signs - 24 hr 02/07/25 13:49 02/07/25 14:44 02/07/25 14:45 Temperature 97.6 F Pulse Rate 60 59 L Pulse Rate [Right Pulse Oximeter] 56 L Respiratory Rate 18 Blood Pressure Blood Pressure [Ri ght Upper Arm] 108/56 L Pulse Oximetry 95 95 96 Oxygen Delivery Me thod Room Air 02/07/25 14:46 02/07/25 14:48 02/07/25 14:51 Temperature Pulse Rate 62 59 L Pulse Rate [Right Pulse Oximeter] Respiratory Rate Blood Pressure 127/55 L 131/93 H 103/53 L Blood Pressure [Ri ght Upper Arm] Pulse Oximetry 96 99 Oxygen Delivery Me thod 02/07/25 15:07 02/07/25 15:15 02/07/25 15:30 Temperature Pulse Rate 54 L 54 L 58 L Pulse Rate [Right Pulse Oximeter] Respiratory Rate Blood Pressure Blood Pressure [Ri ght Upper Arm] Pulse Oximetry 98 100 96 Oxygen Delivery [facility] Hospitalist - H&P: Result Labs Labs: Short CBC 02/07/25 Range/Units 14:16 WBC 6.82 (4.50-11.00) K/uL Hgb 12.5 (12.0-16.0) gm/dL Hct 39.0 (33.0-51.0) % Plt Count 275 (140-440) K/uL BMP 02/07/25 14:16 Sodium 138 Potassium 4.2 Chloride 104 Carbon Dioxide 26 BUN 34 H Creatinine 1.4 Glucose 165 H Calcium 9.7 Liver Function 02/07/25 Range/Units 14:16 Total Bilirubin 0.8 (0.1-1.5) mg/dL Direct Bilirubin 0.3 (0.0-0.5) mg/dL AST 29 (12-35) U/L ALT 16 (4-35) U/L Alkaline Phosphatase 61 (40-150) U/L Albumin 4.2 (3.3-5.0) g/dL ECG Attestation: I personally reviewed and interpreted this ECG as follows: ECG interpretation date: 02/07/25 Interpretation: Sinus bradycardia with voltage criteria for left ventricular hypertrophy. Imaging CT scan - head: Attestation: I have reviewed the pertinent imaging results. Radiologist's impression: FINDINGS: The ventricles and cortical sulci appear stable in configuration. Redemonstration of confluent regions of hypoattenuation throughout the cerebral white matter, nonspecific, but typical of chronic microangiopathy. Hernandez-white matter differentiation appears preserved. No acute intracranial hemorrhage or abnormal extra-axial fluid collection identified. No midline shift or herniation. Partially empty sella configuration. Calcific intracranial atherosclerotic plaquing. Intact calvarium. Clear visualized paranasal sinuses and mastoid air cells. Bilateral lens implants. IMPRESSION: 1. No CT evidence of acute intracranial abnormality or significant interval change relative to 01/17/2025.
[2025-02-07 20:08] LABS: Appearance Urine Turbid (Clear)
[2025-02-07] MEDS: GABAPENTIN 300 MG CAPSULE PO (20:26)
[2025-02-07] MEDS: SIMVASTATIN 20 MG TABLET PO (20:26)
[2025-02-07] MEDS: ACETAMINOPHEN 325 MG TABLET 650 MG PO (20:26)
[2025-02-07] MEDS: SODIUM CHLORIDE 0.9 % (FLUSH) 10 ML SYRINGE 5 ML IVF (20:28)
[2025-02-08 02:30] VITALS: BP 153/58; PULSE 63; RESP 14; TEMP 36.8; O2SAT 94
[2025-02-08 06:00] VITALS: BP 161/68; BP 165/100; BP 174/83; PULSE 57; PULSE 70
--- NOTE | 2025-02-08 06:55 | PC.NURSE ---
End of shift: Pt pleasant, alert and oriented. VSS, though hypertensive. Pt did have positive orthostatic BPs as well when going from sitting to standing. Tele reads NSR with BBB. Pt SBA-1a with walker and GB. Pt in bed, appears to be resting call light within reach.?
[2025-02-08 07:00] VITALS: PULSE 55; RESP 18; O2SAT 98
[2025-02-08 08:03] LABS: Hematocrit 35.6 % (33.0-51.0); Hemoglobin* 11.3 gm/dL (12.0-16.0); Immature Granulocytes Abs Auto 0.00 K/uL (0.00-0.30); Immature Granulocytes Pct Auto 0.0 %; Lactate* 1.2 mmol/L (0.5-1.9); Mean Corpuscular HGB Conc 32 gm/dL (32-36); Mean Corpuscular Hemoglobin 31 pg (26-34); Mean Corpuscular Volume 99 fL (80-100); RDW Coefficient of Variation % 13.0 % (11.5-15.5); Red Blood Count 3.61 m/uL (4.00-5.20); White Blood Count* 4.25 K/uL (4.50-11.00)
[2025-02-08 08:05] LABS: Lymphocytes Absolute Auto 1.10 K/uL (0.90-2.90); Slide Review Reflex No
[2025-02-08 08:19] LABS: Chloride* 109 mmol/L (96-114)
[2025-02-08 08:20] LABS: Potassium* 3.7 mmol/L (3.6-5.1); Sodium* 139 mmol/L (135-149)
[2025-02-08 08:22] LABS: Blood Urea Nitrogen* 26 mg/dL (7-30); Creatinine* 1.0 mg/dL (0.5-1.5); Estimated Glomerular Filt Rate 56 ml/min
[2025-02-08 08:23] LABS: Calcium* 9.5 mg/dL (8.4-10.6); Carbon Dioxide* 24 mmol/L (20-32); Glucose* 103 mg/dL (60-115)
[2025-02-08 08:24] LABS: Anion Gap 6 mEq/L (7-15)
[2025-02-08] MEDS: GABAPENTIN 300 MG CAPSULE PO (08:28)
[2025-02-08 08:30] VITALS: BP 189/62; PULSE 58; RESP 18; TEMP 36.4; O2SAT 98
[2025-02-08] MEDS: DULOXETINE 30 MG CAPSULE DR PO (09:49)
[2025-02-08] MEDS: LOPERAMIDE HCL 2 MG CAPSULE PO (09:50)
[2025-02-08] MEDS: RIVAROXABAN 10 MG TABLET PO (09:50)
[2025-02-08] MEDS: SODIUM CHLORIDE 0.9 % (FLUSH) 10 ML SYRINGE 5 ML IVF (09:51)
[2025-02-08 10:39] VITALS: BMI 34.7
[2025-02-08 11:00] VITALS: BP 159/94; PULSE 50; RESP 18; TEMP 36.4; O2SAT 98
--- NOTE | 2025-02-08 12:48 | PM.DS1 ---
DS: Providers Provider Date Seen: 02/08/25 Date of admission: 02/07/25 16:28 Primary care physician: Mervat Garcia CNP Admitting Clinician: Rob Coe MD Consults: 02/07/25 19:32 Consult to Nutrition [CONS] Routine Comment: Reason for consult:: Miscellaneous Consult to Occupational Therapy [CONS] Routine Comment: Reason(s) for OT Consult:: Evaluate and Treat Any Restrictions?:: No Restrictions Consult to Physical Therapy [CONS] Routine Comment: Reason(s) for PT Consult:: Evaluate and Treat Any Restrictions?:: No Restrictions Attending Physician on discharge: DARWIN Cruz, FERNANDO [place] [facility] Date of Discharge: 02/08/25 DS: Diagnosis Discharge Diagnosis (1) Vasovagal syncope: Status: Acute Problem details: Acute on chronic recurrent. Third most recent episode. Micturition/defication syncope in dehydrated state. Monitored overnight with telemetry which remained unremarkable. No further episodes. CT head without acute abnormalities. Asymptomatic bacteruria noted. Outpatient follow up with PCP for further work up and management. (2) Orthostatic hypotension: Status: Acute Problem details: Likely due to dehydration from diuresis, decreased oral intake. Stop furosemide her PCP prescribed for LE edema, continue to taper dose of gabapentin (as initiated with PCP) which can cause LE edema, stop HCTZ. PT/OT consulted no acute needs. Nutrition consulted no acute needs. 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 Edema wear recommended. (5) Dehydration, moderate: Status: Acute Problem details: Likely due to furosemide 20 mg po daily for past 5 days for chronic LE edema, plus HCTZ for HTN, plus decreased oral intake. Presented with vasovagal syncope, orthostatic hypotension, elevated creatinine and BU. Stopped home furosemide and HCTZ. Gentle IV hydration during hospital course. (6) Left ventricular hypertrophy by electrocardiogram: Status: Acute Problem details: - check echocardiogram to assess for possible outlet obstruction, cardiomyopathy, valvular disease. TTE completed prior to discharge, awaiting final read. Outpatient follow up with PCP. Consider Cardiology given symptomatology. (7) Bacteriuria: Status: Acute Problem details: UA shows LE and nitrites with many bacteria. Asymptomatic. UC prelim growing gram neg rods. Previous UC sensitive to third generation cephalosporins. Discharged with Cefpodoxime, awaiting final cultures. DS: Summary Hospital Course Hospital Course: As above Status at Discharge Functional status at discharge: independent ambulation Overall status at discharge: patient is back to baseline Time Spent with Patient Time attestation: Total time spent providing and/or coordinating discharge services: Time spent: Greater than 30 minutes Exam Narrative: Exam Narrative: General: Very pleasant, talkative, NAD Cardiopulmonary: RRR, trace pitting edema, CTA B, no dyspnea Skin: Warm, dry Const: Vital Signs, click to edit/add: Vital Signs - 24 hr 02/07/25 13:49 02/07/25 14:44 02/07/25 14:45 Temperature 97.6 F Pulse Rate 60 59 L Pulse Rate [Pulse Oximeter] Pulse Rate [Right Pulse Oximeter] 56 L Pulse Rate [orthos tatic lying] Pulse Rate [orthos tatic sitting] Pulse Rate [orthos tatic standing] Respiratory Rate 18 Blood Pressure Blood Pressure [Ri ght Arm] Blood Pressure [Ri ght Upper Arm] 108/56 L Blood Pressure [or thostatic lying] Blood Pressure [or thostatic sitting] Blood Pressure [or thostatic standing ] Pulse Oximetry 95 95 96 Oxygen Delivery Me thod Room Air 02/07/25 14:46 02/07/25 14:48 02/07/25 14:51 Temperature Pulse Rate 62 59 L Pulse Rate [Pulse Oximeter] Pulse Rate [Right Pulse Oximeter] Pulse Rate [orthos tatic lying] Pulse Rate [orthos tatic sitting] Pulse Rate [orthos tatic standing] Respiratory Rate Blood Pressure 127/55 L 131/93 H 103/53 L Blood Pressure [Ri ght Arm] Blood Pressure [Ri ght Upper Arm] Blood Pressure [or thostatic lying] Blood Pressure [or thostatic sitting] Blood Pressure [or thostatic standing ] Pulse Oximetry 96 99 Oxygen Delivery Me thod 02/07/25 15:07 02/07/25 15:15 02/07/25 15:30 Temperature Pulse Rate 54 L 54 L 58 L Pulse Rate [Pulse Oximeter] Pulse Rate [Right Pulse Oximeter] Pulse Rate [orthos tatic lying] Pulse Rate [orthos tatic sitting] Pulse Rate [orthos tatic standing] Respiratory Rate Blood Pressure Blood Pressure [Ri ght Arm] Blood Pressure [Ri ght Upper Arm] Blood Pressure [or thostatic lying] Blood Pressure [or thostatic sitting] Blood Pressure [or thostatic standing ] Pulse Oximetry 98 100 96 Oxygen Delivery Me thod 02/07/25 19:32 02/07/25 19:32 02/07/25 19:49 Temperature 97.9 F 97.8 F Pulse Rate Pulse Rate [Pulse Oximeter] 58 L 63 Pulse Rate [Right Pulse Oximeter] Pulse Rate [orthos tatic lying] Pulse Rate [orthos tatic sitting] Pulse Rate [orthos tatic standing] Respiratory Rate 18 16 18 Blood Pressure Blood Pressure [Ri ght Arm] 142/100 H 173/67 H Blood Pressure [Ri ght Upper Arm] Blood Pressure [or thostatic lying] Blood Pressure [or thostatic sitting] Blood Pressure [or thostatic standing ] Pulse Oximetry 97 97 97 Oxygen Delivery Il thod Room Air Room Air Room Air 02/07/25 21:00 02/07/25 22:50 02/07/25 23:00 Temperature 97.6 F Pulse Rate 60 Pulse Rate [Pulse Oximeter] 59 L Pulse Rate [Right Pulse Oximeter] Pulse Rate [orthos tatic lying] 66 Pulse Rate [orthos tatic sitting] 67 Pulse Rate [orthos tatic standing] 66 Respiratory Rate 16 Blood Pressure Blood Pressure [Ri ght Arm] 179/59 H Blood Pressure [Ri ght Upper Arm] Blood Pressure [or thostatic lying] 152/54 H Blood Pressure [or thostatic sitting] 166/59 H Blood Pressure [or thostatic standing ] 111/70 Pulse Oximetry 95 Oxygen Delivery Il thod Room Air 02/07/25 23:00 02/07/25 23:00 02/08/25 02:30 Temperature 98.2 F Pulse Rate Pulse Rate [Pulse Oximeter] 59 L 63 Pulse Rate [Right Pulse Oximeter] Pulse Rate [orthos tatic lying] Pulse Rate [orthos tatic sitting] Pulse Rate [orthos tatic standing] Respiratory Rate 16 14 Blood Pressure Blood Pressure [Ri ght Arm] 153/58 H Blood Pressure [Ri ght Upper Arm] Blood Pressure [or thostatic lying] Blood Pressure [or thostatic sitting] Blood Pressure [or thostatic standing ] Pulse Oximetry 97 94 Oxygen Delivery Me thod Room Air Room Air 02/08/25 06:00 02/08/25 07:00 02/08/25 07:00 Temperature Pulse Rate 55 L Pulse Rate [Pulse Oximeter] Pulse Rate [Right Pulse Oximeter] Pulse Rate [orthos tatic lying] 57 L Pulse Rate [orthos tatic sitting] 57 L Pulse Rate [orthos tatic standing] 70 Respiratory Rate 18 Blood Pressure Blood Pressure [Ri ght Arm] Blood Pressure [Ri ght Upper Arm] Blood Pressure [or thostatic lying] 161/68 H Blood Pressure [or thostatic sitting] 174/83 H Blood Pressure [or thostatic standing ] 165/100 H Pulse Oximetry 98 Oxygen Delivery Me thod Room Air 02/08/25 07:00 02/08/25 08:30 Temperature 97.6 F Pulse Rate Pulse Rate [Pulse Oximeter] 55 L 58 L Pulse Rate [Right Pulse Oximeter] Pulse Rate [orthos tatic lying] Pulse Rate [orthos tatic sitting] Pulse Rate [orthos tatic standing] Respiratory Rate 18 18 Blood Pressure Blood Pressure [Ri ght Arm] 189/62 H Blood Pressure [Ri ght Upper Arm] Blood Pressure [or thostatic lying] Blood Pressure [or thostatic sitting] Blood Pressure [or thostatic standing ] Pulse Oximetry 98 Oxygen Delivery Me thod Room Air DS: Data Data Completed and Pending Labs on day of discharge: Labs from last 24 hours 02/08/25 02/07/25 02/07/25 07:56 Unknown 14:16 WBC 4.25 L 6.82 RBC 3.61 L 3.96 L Hgb 11.3 L 12.5 Hct 35.6 39.0 MCV 99 99 MCH 31 32 MCHC 32 32 RDW Coeff of [place] 13.0 13.0 Plt Count 229 275 Neut % (Auto) 60.2 81.5 H Lymph % (Auto) 26.8 10.4 L Clarke % (Auto) 9.9 6.2 Eos % (Auto) 2.6 1.5 Baso % (Auto) 0.5 0.3 Neut # (Auto) 2.60 5.60 Lymph # (Auto) 1.10 0.70 L Clarke # (Auto) 0.40 0.40 Eos # (Auto) 0.10 0.10 Baso # (Auto) 0.00 0.02 Abs Immat Gran (auto) 0.00 0.01 Imm/Tot Granulo (auto) 0.0 0.1 INR 1.42 H APTT 30 Sodium 139 138 Potassium 3.7 4.2 Chloride 109 104 Carbon Dioxide 24 26 Anion Gap 6 L 8 BUN 26 34 H Creatinine 1.0 1.4 Estimated GFR 56 38 Glucose 103 165 H Lactate 1.2 2.6 H Calcium 9.5 9.7 Total Bilirubin 0.8 Direct Bilirubin 0.3 AST 29 ALT 16 Alkaline Phosphatase 61 C-Reactive Protein 0.7 Total Protein 7.1 Albumin 4.2 Urine Color Yellow Urine Appearance Turbid A Urine pH 5.5 Ur Specific [place] 1.020 Urine Protein Trace A Urine Glucose (UA) Negative Urine Ketones Negative Urine Blood Negative Urine Nitrite Positive A Urine Bilirubin Negative Urine Urobilinogen 0.2 Ur Leukocyte Esterase 1+ A Urine RBC 0-2 Urine WBC 10-25 A Ur Squamous Epith Cells Moderate A Urine Bacteria Many A SARS-CoV-2 (PCR) Negative SARS-CoV-2 Influenza Type A (PCR) Negative PCR FLU A Influenza Type B (PCR) Negative PCR FLU B RSV (PCR) Negative PCR RSV POC Troponin I 02/07/25 14:03 WBC RBC Hgb Hct MCV MCH MCHC RDW Coeff of [place] Plt Count Neut % (Auto) Lymph % (Auto) Clarke % (Auto) Eos % (Auto) Baso % (Auto) Neut # (Auto) Lymph # (Auto) Clarke # (Auto) Eos # (Auto) Baso # (Auto) Abs Immat Gran (auto) Imm/Tot Granulo (auto) INR APTT Sodium Potassium Chloride Carbon Dioxide Anion Gap BUN Creatinine Estimated GFR Glucose Lactate Calcium Total Bilirubin Direct Bilirubin AST ALT Alkaline Phosphatase C-Reactive Protein Total Protein Albumin Urine Color Urine Appearance Urine pH Ur Specific [place] Urine Protein Urine Glucose (UA) Urine Ketones Urine Blood Urine Nitrite Urine Bilirubin Urine Urobilinogen Ur Leukocyte Esterase Urine RBC Urine WBC Ur Squamous Epith Cells Urine Bacteria SARS-CoV-2 (PCR) Influenza Type A (PCR) Influenza Type B (PCR) RSV (PCR) POC Troponin I 0.01 Preliminary micro results at discharge 02/07/25 20:08 Urine Culture - Preliminary Urine,Clean Catch Culture in Progress Imaging CT scan - head: Attestation: I have reviewed the pertinent imaging results. Radiologist's impression: 1. No CT evidence of acute intracranial abnormality or significant interval change relative to 01/17/2025. Discharge Plan Discharge Disposition: Home, Self-Care Date of Admission: 02/07/25 16:28 Attending Provider on Discharge: Josee Jimenez Primary Care Provider: Mervat Garcia Condition: Improved Anticipated Discharge Date/Time: 02/08/25 12:33 Discharge Medications: New lisinopril 20 mg Tablet 20 mg PO DAILY Qty: 30 0RF cefpodoxime 100 mg tablet 100 mg PO BID Qty: 10 0RF Rx Instructions: must administer with a meal/food Continued gabapentin 300 mg capsule 300 - 600 mg PO BID Rx Instructions: 300 MG IN AM, 600 MG IN PM duloxetine 30 mg capsule,delayed release(DR/EC) 30 mg PO DAILY Cholestyramine Light 4 gram powder 4 g PO DAILY Qty: 210 2RF Rx Instructions: administer w/meal; avoid other meds within 1hr before or 4-6hr after dose atenolol 25 mg tablet 25 mg PO DAILY prednisone 1 mg tablet 1 mg PO DAILY colestipol 1 gram tablet 1 g PO BID loperamide 2 mg Capsule 2 mg PO DAILY Rx Instructions: ONCE DAILY PLUS UP TO THREE TIMES DAILY NEEDED. acetaminophen 500 mg tablet See Rx Instructions PO Q4-6H PRN Rx Instructions: 1-2 tablets orally every 4-6 hours PRN; Not to exceed 6 tablets in 24 hours. Xarelto 10 mg tablet 10 mg PO DAILY Qty: 90 1RF simvastatin 20 mg tablet 20 mg PO HS Qty: 90 3RF Discontinued lisinopril-hydrochlorothiazide 20-12.5 mg tablet 1 tab PO QDAY Qty: 90 3RF Discharge Orders: Discharge Order (Routine); Ordered 02/08/25 Ordered By: Josee Jimenez Patient Education: Lisinopril (By mouth), Cefpodoxime Proxetil (By mouth), Near Syncope (DC), Urinary Tract Infection in Older Adults (GEN) Additional Instructions: Stop lisinopril-HCTZ. You have been given a prescription for just lisinopril to be taken daily. Follow-up with your PCP for further blood pressure management - consider discontinuing atenolol. Continue to wean down your gabapentin. Ensure adequate fluid intake. Continue with edema wear. Your urinalysis looks suspicious for a urinary tract infection. Your urine culture is not yet available. You have been started on cefpodoxime twice daily for 5 days. If your culture is negative, we will contact you to stop the antibiotic. In the meantime, continue this medication. Activity Level: Light activity Discharge Diet: Regular Follow Up Appointments: Mervat Garcia CNP [Primary Care Provider, Family Practice] - 02/09/25 3:00 pm Referral Note: [facility] for hospital follow-up. Forms: [facility], [facility] Inst[facility]
--- NOTE | 2025-02-08 12:55 | PC.SOCIAL ---
Discharge planning: Pt lives at home with her who does work part-time during the day at the local [employer]. 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 Pt is expecting a call from the [facility] for more information about moving into Assisted Living. furnace worker submitted the referral to the [facility] yesterday afternoon and already received a call from the [facility] this morning stating that they would follow-up with the pt before the end of this week. Pt's daughter did state yesterday that she thought her brother, Jace, had filled out an [facility] application for the pt earlier this year when she was at [place] for rehab with the social science analyst at [place]. Social work to follow-up as needed.
--- NOTE | 2025-02-08 16:59 | PC.NURSE ---
Discharge: Patient pleasant and cooperative, A&O. VSS, afebrile. SpO2 maintained above 90% on RA. SBA with walker. Tolerating regular diet. Denies pain. IV removed with tip intact. Discharge instructions provided, all questions answered. D/C to home with .
== END 2025-02-08 16:30 | disposition home or self-care (01) ==
LOC: ED 15:02 → MEDSURG 16:28
PROVIDERS: Physician Assistant; Admitting Provider Internal Medicine; Emergency Provider Family Medicine; PCP Nurse Practitioner Family; Visit Provider Internal Medicine
DX: I95.1 Orthostatic hypotension (principal); I87.2 Venous insufficiency (chronic) (peripheral); E86.0 Dehydration; I51.7 Cardiomegaly
CPT/HCPCS: 36415; 70450; 80048; 80076; 81001; 83605; 84484; 85025; 85610; 85730; 86140; 87086; 87631; 93005; 93306; 97161; 97165; 97530; 97535; 99285; A9270; G0378; J7030; J7512

== ENCOUNTER 2025-02-24 20:47 | Inpatient (IN) | payer MEDICARE, SELFPAY ==
--- OUTSIDE RECORDS SUMMARY | 2025-02-13 23:30 | XMS_ITS | Continuity of Care Document ---
Author Organization [facility] Address [address] [address] [place] [address] Phone Care Team Providers Care Location Man Name Role Phone No Information Unavailable Unavailable Allergies, Adverse Reactions, Alerts Substance Reaction Status Criticality acetaminophen Nausea/Vomiting Active No Informat ion codeine Nausea/Vomiting Active No Informati on Medications Medication Instructions Dosage Effective Dates (start - stop) Status Comments gabapentin 300 mg capsule take 1 capsule by oral route 2 times every day 300 MG - Active prednisone 1 mg tablet take 1 tablet by oral route every day 1 MG - Active Xarelto 10 mg tablet take 1 tablet by or al route every day 10 MG - Active Mapap (acetaminophen) 500 mg capsule take 1 capsule by oral route every 6 hours as needed 500 MG - Active colestipol 1 gram tablet take 1 tablet by oral route 2 times every day swallowing whole with any liquid. Do not crush, chew and/or divide. 1 G - Active duloxetine 20 mg capsule,delayed release take 1 capsule by oral route every day 20 MG - Active simvastatin 20 mg Tab Take one tablet by mouth daily - Active atenolol 25 mg Tab every day - Active Procedures Procedure Date Offic/outpt E&m New Moderate Colonoscopy Flex; W/remov Les- 22 Level Iv-surg Path Gross/micro Colorectal Ca Screen Hi Risk I 16 [...] Diagnoses Date Provider Providers Copied on Encounter [facility], [address] [address], [place], [id number], [place] tel:[phone] No Information No Information Offic/outpt E&m New Moderate [facility], [address] [address], [place], [id number], [place] tel:[phone] [facility] GI Symptoms or Concerns (chief complaint) Bile salt-induced diarrhea Sandra Nguyen. [address] [facility] [address], [place], [id number], [place]. tel:[phone] Donnie Harper MD. tel:[phone] erring Provider: Mervat Garcia [employer]OWER MECHANIC, [address] [place], [address]. tel:[phone] [facility], [address] [address], [place], [id number], [place] tel:[phone] [facility] No Information Luis Padilla. [address] [facility] [address], [place], [id number], [place]. tel:[phone] [facility], [address] [address], [place], [id number], [place] tel:[phone] [facility] GI Symptoms or Concerns (chief complaint) Personal history of colon cancerColorectal polypsDiverticul osis of colon without diverticulitisEn counter for screening for malignant neoplasm of colonBenign neoplasm of transverse colon 2 Nadya Taylor. [address] [facility], [address], [id number], [place]. tel:[phone] Donnie Harper MD. tel:[phone] erring Provider: [place], [address] [place], [address]. tel:[phone] [facility], [address] [address], [place], [id number], [place] tel:[phone] [facility] No Information 1 Shanna Zuñiga. [address], [id number], [place]. tel:[phone] [facility], [address] [address], [place], [id number], [place] tel:[phone] [facility] Diverticulosis large intestine w/o perforation or abscess w/o bleedingPersonal history of colon cancerExternal hemorrhoidsEncou nter for screening for malignant neoplasm of colonResidual hemorrhoidal skin tagsDvrtclos of lg int w/o perforation or abscess w/o bleedingPersonal history of malignant neoplasm of large intestine 6 Emmanuel Farnsworth. [address] [facility], [address], [id number], [place]. tel:[phone] Referring [place]: [place], [address] [place], [address]. tel:[phone] [facility], [address] [address], [place], [place], [address], [place] tel:[phone] [facility] Personal History Colon CancerPersonal History Colon CancerBenign Neoplasm Lg Bowel 0 Cheikh Pabon. [address] [facility], [facility] [address], [place], [id number], [place]. tel:[phone] [facility], [address] [address], [place], [place], [id number], [place] tel:[phone] [facility] Colon Cancer ScreeningRectal Polyp/BenignCecu m Cancer 9 Cheikh Pabon. [address] [facility], [facility] [address], [place], [place], [id number], [place]. tel:[phone] Referring Provider: Becky Leo MD E, [address] [place], [address]. tel:[phone] Family History Family Member Type Diagnosis Age At Onset Sister Problem (finding) Alive and well Brother Problem (finding) malignant neoplasm of u rinary bladder Brother Problem (finding) stomach cancer Daughter Problem (finding) Irritable bowel syndrom e Brother Problem (finding) malignant neoplasm of l joao Father Problem (finding) Colon polyps Brother Problem pharyngeal cancer Son Problem (finding) Colon polyps Father Problem (finding) Brother Problem (finding) malignant neoplasm of p ancreas Father Problem (finding) cancer of colon Brother Problem (finding) Colon polyps Father Problem (finding) malignant neoplasm of l joao Mother Problem (finding) Mother Problem heart disease Brother Problem (finding) alcoholism Father Problem (finding) malignant neoplasm of p ancreas Father Problem (finding) stomach cancer Brother Problem (finding) cancer of colon Father Problem (finding) alcoholism Daughter Problem (finding) Alive and well Brother Problem (finding) malignant neoplasm of l iver Brother Problem (finding) Alive and well Immunizations Vaccine Date Status Comments Pneumococcal conjugate vacci ne 20-valent (PCV20), polysaccharide [id number] conjugate, adjuvant, preservative free administered Note: [facility] bi-direct ional interface ; Source: Other Registry SARS-COV-2 (COVID-19) vaccin e, mRNA, spike protein, LNP, preservative free, brandyn-sucrose, 30 mcg/0.3 mL dose administered Note: [facility] bi-direct ional interface ; Source: Other Registry Influenza, high-dose, split virus, trivalent, injectable, preservative free administered Note: [facility] bi-direct ional interface ; Source: Other Registry Twinrix administered Note: [facility] bi-d irectional interface ; Source: Other Registry SARS-COV-2 (COVID-19) vaccin e, mRNA, spike protein, LNP, preservative free, 50 mcg/0.5 mL dose administered Note: [facility] bi-direct ional interface ; Source: Other Registry Respiratory syncytial virus (RSV), vaccine, recombinant, protein subunit RSV prefusion F, adjuvant reconstituted, 0.5 mL, preservative free administered Note: [facility] bi-direct ional interface ; Source: Other Registry Influenza, adjuvanted, inactivated, quadrivalent, injectable, preservative free administered Note: [facility] bi-directional interface ; Source: Other Registry SARS-COV-2 (COVID-19) vaccin e, mRNA, spike protein, LNP, bivalent, preservative free, 30 mcg/0.3 mL dose, brandyn-sucrose formulation administered Note: [facility] bi-direct ional interface ; Source: Other Registry Influenza, high-dose, split virus, quadrivalent, injectable, preservative free administered Note: [facility] bi-direct ional interface ; Source: Other Registry SARS-COV-2 (COVID-19) vaccin e, mRNA, spike protein, LNP, preservative free, 30 mcg/0.3mL dose, brandyn-sucrose formulation administered Note: [facility] C bi- directional interface ; Source: Other Registry SARS-COV-2 (COVID-19) vaccin e, mRNA, spike protein, LNP, preservative free, 30 mcg/0.3mL dose administered Note: [facility] bi-direct ional interface ; Source: Other Registry Influenza, high-dose, split virus, quadrivalent, injectable, preservative free administered Note: [facility] bi-direct ional [...] ional interface ; Source: Other Registry Influenza, high-dose, split virus, trivalent, injectable, preservative free administered Note: [facility] bi-direct ional interface ; Source: Other Registry influenza, high dose seasona l, preservative-free administered Note: [facility] bi-direct ional interface ; Source: Other Registry zoster vaccine recombinant administered N ote: [facility] bi-directional interface ; Source: Other Registry zoster vaccine recombinant administered N ote: [facility] bi-directional interface ; Source: Other Registry Influenza, high-dose, split virus, trivalent, injectable, preservative free administered Note: [facility] bi-direct ional interface ; Source: Other Registry influenza, high dose seasona l, preservative-free administered Note: [facility] bi-direct ional interface ; Source: Other Registry Influenza, high-dose, split virus, trivalent, injectable, preservative free administered Note: [facility] bi-direct ional interface ; Source: Other Registry influenza, high dose seasona l, preservative-free administered Note: [facility] bi-direct ional interface ; Source: Other Registry Influenza, high-dose, split virus, trivalent, injectable, preservative free administered Note: [facility] bi-direct ional interface ; Source: Other Registry influenza, high dose seasona l, preservative-free administered Note: [facility] bi-direct ional interface ; Source: Other Registry zoster vaccine, live administered Note: [facility] bi-directional interface ; Source: Other Registry Influenza, high-dose, split virus, trivalent, injectable, preservative free administered Note: [facility] bi-direct ional interface ; Source: Other Registry Prevnar 13 administered Note: [facility] bi-d irectional interface ; Source: Other Registry influenza, high dose seasona l, preservative-free administered Note: [facility] bi-direct ional interface ; Source: Other Registry Afluria Qd [id number] administered Note: [facility] bi-directional interface ; Source: Other Registry Influenza, high-dose, split virus, trivalent, injectable, preservative free administered Note: [facility] bi-direct ional interface ; Source: Other Registry influenza, high dose seasona l, preservative-free administered Note: [facility] bi-direct ional interface ; Source: Other Registry Influenza, split virus, trivalent, injectable, contains preservative administered Note: [facility] bi-direct ional interface ; Source: Other Registry Influenza, seasonal, injectable administe red Note: [facility] bi- directional interface ; Source: Other Registry Novel [id number], all formulations administered Note: [facility] bi-direct ional interface ; Source: Other Registry Influenza, split virus, trivalent, injectable, preservative free administered Note: [facility] bi-direct ional interface ; Source: Other Registry Influenza, seasonal, injecta ble, preservative free administered Note: [facility] bi-direct ional interface ; Source: Other Registry Pneumovax 23 administered Note: [facility] bi-d irectional interface ; Source: Other Registry Influenza, split virus, trivalent, injectable, contains preservative administered Note: [facility] bi-direct ional interface ; Source: Other Registry Influenza, seasonal, injectable administe red Note: [facility] bi- directional interface ; Source: Other Registry Influenza, split virus, trivalent, injectable, contains preservative administered Note: [facility] bi-direct ional interface ; Source: Other Registry Influenza, seasonal, injectable administe red Note: [facility] bi- directional interface ; Source: Other Registry tetanus toxoid, reduced diphtheria toxoid, and acellular pertussis vaccine, adsorbed administered Note: [facility] b i-directional interface ; Source: Other Registry Payers Payer name Insurance type Covered constitution party ID Authoriza tion(s) No Information Social History Type Description Quantity Date Captured Comments Sex Female Smoking Status No Information Chief Complaint And Reason For Visit No Information Reason For Referral Reason For Referral No Information History Of Present Illness Encounter Date Complaint History Of Prese nt Illness GI Symptoms or Concerns 84-year- old female with history of colon cancer diagnosed in 2008 status post resection with ileocolonic anastomosis who presents for evaluation of diarrhea. She has history of hypertension, DVT on Xarelto, rheumatoid arthritis on Rinvoq (reports that this was discontinued) and prednisone, remote history of cholecystectomy. She also has a history of recurrent UTI requiring frequent courses of antibiotics. Last colonoscopy was done in August 2021 that reported 3 tubular adenomas with recommendations not to repeat colonoscopy.She reports that she chronically has had diarrhea problems however late December, early January, she started having severe diarrhea and urgency. For about 10 days, she was not eating well to avoid fecal incontinence. She did have a syncopal episode and she ended up being hospitalized on January 31 and was diagnosed with viral gastroenteritis. She had extensive testing including (reviewed from outside records): Stool testing in the hospital was negative for C. difficile. She had also stool cultures and viral stool PCR and all were negative. TTG was also done and was negative. She was discharged on cholestyramine and as needed Imodium. Prior to her admission, she had CT abdomen pelvis with contrast 01/17/2025: No acute findings. Chronic stable changes.History is limited due to mild cognitive impairment. She reports that she has been using Imodium intermittently, and cholestyramine once a day. Her diarrhea has improved significantly. She has been having about 3 bowel movements a day. Intermittently she does have urgency. No blood in the stool. No abdominal pain. No nausea or vomiting. She reports that her chronic diarrhea does worsen with dairy intake and fatty food. She reports that she has been tolerating oral intake very well recently. GI Symptoms or Concerns Functional Status Date Functional Assessmen t No Information Instructions Date Instruction Additional Infor trina I would recommend to stop cholestyramine.Start colestipol 1 g once daily. Take all other medications at least 1 hour before or 4 hours after you take colestipol to avoid interfering with absorption of other medications.Start with Imodium 1 tablet daily.After 3 days, if you continue to have diarrhea, you may increase Imodium to 2 tablet daily.After 1 week, if you continue to have diarrhea, you can increase colestipol to 1 g twice daily.If no improvement of symptoms in 1 to 2 weeks, contact us, and we will request stool testing for infection including C. difficile and enteric panel, and we will obtain abdominal x-ray to rule out underlying constipation.I would recommend to continue with probiotics given that you had been using antibiotics frequently for urinary tract infections.Start with fiber supplement, such as psyllium husk, 1 tablespoon with large glass of water daily. I recommend the powder form.If you remain on colestipol, your primary care doctor should be checking your lipid panel once a year as this medicine can cause elevation of triglycerides. Please remain on multivitamins especially if you continue this medication.Follow-up in 1 month or contact us earlier if issues arise. Related to Bile salt-induced diarrhea Diverticulosis/Diverticulitis Re lated to Colorectal polyps Colon Polyps Related to Color ectal polyps High Fiber Diet Related to Color ectal polyps Colon Cancer Prevention Related to Colorectal polyps Colon Cancer Prevention Related to Personal history of colon cancer Diverticulosis/Diverticulitis Re lated to Diverticulosis large intestine w/o perforation or abscess w/o bleeding High Fiber Diet Related to Diver ticulosis large intestine w/o perforation or abscess w/o bleeding Hemorrhoids Related to Diver ticulosis large intestine w/o perforation or abscess w/o bleeding Assessments Type Assessment Date No Information Patient Care Teams Name Effective Dates (start - stop) Status Members No Information
--- OUTSIDE RECORDS SUMMARY | 2025-02-24 20:51 | XMS_ITS | Encounter Summary ---
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 Phone Esperanza Gatica MD Primary Care Provider + Esperanza Gatica MD Unavailable [phone] Esperanza Gatica MD Unavailable [phone] Esperanza Gatica MD Unavailable [phone] Esperanza Gatica MD Unavailable [phone] Esperanza Gatica MD Unavailable [phone] Esperanza Gatica MD Unavailable [phone] Jesús Orourke MD Unavailable Alfreda RayC Primary Care Provider + Alfreda Ray PA-C Unavailable [phone] Katrin Orellana PA-C Unavailable [phone] Sahnna VangC Unavailable [phone] Fransisco Eddy MD Unavailable [phone] Esperanza Gatica MD Unavailable [phone] Esperanza Gatica MD Unavailable [phone] Katrin Orellana PA-C Unavailable [phone] Cristina Hsieh [facility] Unavailable [phone] Cory Alfreda Liu PA-C Unavailable [phone] Ho Raymustapha Liu PA-C Unavailable [phone] Cristina Hsieh [facility] Unavailable [phone] Dakota Tatum MD Unavailable Unava ilable Daokta Tatum MD Unavailable Unava ilable CynthiaSrinivas Unavailable [phone] Brenda Johanne Salome RN Unavailable [phone] Linda Ambriz Gallito [facility] Unavailable [phone] Reason for Visit * Reason Onset Date Comments Refill Request 01/01/2013 ultram Encounter Details Date Type Department Care Team (Late st Contact Info) Description 01/01/2013 MyC Refill [address], [address] [place] [address] [place] [address] [place] [address] Refill Request (ultram) Social History Tobacco Use Types Packs/Day Years Used Date Smoking Tobacco: Former Cigarettes Q uit: 06/21/1973 Smokeless Tobacco: Former Alcohol Use Standard Drinks/Week Comments Yes 0 (1 standard drink = 0.6 oz pur e alcohol) rarely Comments No Sex and Gender Information Value Date Recorded Sex Assigned at Female 08/17/2018 7:56 AM APPLICATIONS PROCESSOR Legal Sex Female 4:24 AM APPLICATIONS PROCESSOR Gender Identity Female 08/17/2018 7:56 AM APPLICATIONS PROCESSOR Sexual Orientation Straight 08/17/2018 7: 56 AM APPLICATIONS PROCESSOR documented as of this encounter Miscellaneous Notes [...] MD] Preferred pharmacy: [id number] Comment: Sent from my iPad documented in this encounter Plan of Treatment Upcoming Encounters Date Type Department Care Team (Late st Contact Info) Description 06/28/2025 3:00 PM APPLICATIONS PROCESSOR Office Visit [facility] Specialty [address] [phone] Fransisco Edyd MD [address] [place] [id number] documented as of this encounter Visit Diagnoses Diagnosis Knee pain- Primary Pain in joint, lower leg documented in this encounter Additional Health Concerns Infection Onset Date Last Indicated Resolved Time Rule Out COVID-19 05/08/2021 05/08/2021 05/09/2021 9:08 PM APPLICATIONS PROCESSOR documented as of this encounter Care Teams Sheet Metal Worker Helper Relationship Specialty Start Date End Date Esperanza Gatica MD PCP - General Family Practice 10/13/11 12/29/21 [place] [address] [place] [address] PCP - Assigned PCP 12/05/17 3 Alfreda Ray PA-C [address] [place] [address] PCP - General Family Medicine 12/30/21 [place] [address] [address] [address] Assigned PCP 12/05/17 09/30/19 [place] [address] [place] [address] Assigned PCP 10/01/19 03/02/20 [place] [address] [address] [address] Assigned PCP 03/03/20 05/25/20 [place] [address] [address] [address] Assigned PCP 05/26/20 09/28/20 [place] [address] [address] [address] Assigned PCP 09/29/20 07/31/22 [place] [address] [place] [address] [address] Assigned Musculoskeletal Provider 10/20/20 04/17/22 Alfreda Ray PA-C [address] [place] [address] Referring Physician Family Medicine 12/31/21 Katrin Orellana PA-C [address] [place] [address] Physician [facility] 12/31/21 Shanna Vang PA-C [address] [place] [address] Assigned Cancer Care Provider 01/10/22 Fransisco Eddy MD [address] [place] [address] Assigned Rheumatology Provider 05/09/22 [place] [address] [place] [address] Assigned Pain Medication Provider 06/29/22 09/04/22 [place] [address] [facility] [address] Assigned PCP 08/15/22 08/28/22 Katrin Orellana PA-C [address] [place] [address] Assigned Surgical Provider 08/15/22 02/10/24 Cristina Hsieh, [facility] [address] [place] [address] [place] [address] Pharmacist Pharmacist 09/07/22 Alfreda Ray PA-C [address] [place] [address] Assigned Pain Medication Provider 09/05/22 09/10/23 Alfreda Ray PA-C [address] [place] [address] Assigned PCP 08/29/22 Cristina Hsieh, [facility] [address] [address] Assigned MTM Pharmacist 09/26/22 Dakota Tatum MD [address] [address] Cardiovascular Disease 03/25/23 Dakota Tatum MD Assigned Heart and Vascular Provider 05/01/23 11/09/24 [place] [address] [place] , [address] [address] Assigned Musculoskeletal Provider 04/12/24 Johanne Gutierrez, RN RN Clinical Product Navigator Primary Care - CC 08/18/24 08/18/24 Linda Ambriz, [facility] Lead Tube Trailer Filler 08/18/24 08/23/24 documented as of this encounter
--- OUTSIDE RECORDS SUMMARY | 2025-02-24 20:51 | XMS_ITS | Encounter Summary ---
Author Organization [place] Address [address] [place] [address] Care Team Providers Care Program Director/Morning Show Host Name Role Phone Esperanza Gatica MD Primary Care Provider + Esperanza Gatica MD Unavailable + Jesús Orourke MD Unavailable Alfreda Ray-C Primary Care Provider + Alfreda RayC Unavailable +[phone] Katrin Orellana PA-C Unavailable +[phone] Shanna Vang PA-C Unavailable +[phone] Fransisco Eddy MD Unavailable +[phone] Esperanza Gatica MD Unavailable + Esperanza Gatica MD Unavailable +16 Katrin OrellanaC Unavailable +[phone] Cristina Hsieh [facility] Unavailable +[phone] Alfreda Ray PA-C Unavailable +260 Alfreda Ray PA-C Unavailable +2600 Cristina Hsieh [facility] Unavailable +[phone] Dakota Tatum MD Unavailable Unava ilDakota Padgett MD Unavailable Unava brittneySrinivas Yun DO Unavailable +[phone] Johanne Gutierrez RN Unavailable +[phone] Linda Ambriz [facility] Unavailable +[phone] Encounter Details Date Type Department Care Team (Late st Contact Info) Description 10/23/2020 MyC Medical Advice [facility] [place] [id number] [place] [address] [address] [place] [address] Jesú[place] [address] [place], [place] 16[address] Social History Tobacco Use Types Packs/Day Years [...] Assigned at Female 08/17/2018 7:56 AM COLLEGE PRESIDENT Legal Sex Female 4:24 AM COLLEGE PRESIDENT Gender Identity Female 08/17/2018 7:56 AM COLLEGE PRESIDENT Sexual Orientation Straight 08/17/2018 7: 56 AM COLLEGE PRESIDENT COVID-19 Exposure Response Date Recorded In the last month, have you been in contact with someone who was confirmed or suspected to have Coronavirus / COVID-19? No / Unsure 10/16/2020 2:03 PM CDT documented as of this encounter Plan of Treatment Upcoming Encounters Date Type Department Care Team (Late st Contact Info) Description 06/28/2025 3:00 PM COLLEGE PRESIDENT Office Visit [facility] [address] [place] [address] Fransisco Eddy MD [address] [place] [address] documented as of this encounter Visit Diagnoses Not on filedocumented in this encounter Additional Health Concerns Infection Onset Date Last Indicated Resolved Time Rule Out COVID-19 05/08/2021 05/08/2021 05/09/2021 9:08 PM COLLEGE PRESIDENT Assessment Noted Time PHQ-9 Depression Total Score: 0 08/31/19 21 11:22 AM COLLEGE PRESIDENT documented as of this encounter Care Teams Program Director/Morning Show Host Relationship Specialty Start Date End Date Esperanza Gatica MD PCP - General Family Practice 10/13/11 12/29/21 Alfreda Ray PA-C [address] [place] [address] [id number] PCP - General Family Medicine 12/30/21 [place] [address] [place] [address] Assigned PCP 09/29/20 07/31/22 Jesú[place] [address] [id number] Assigned Musculoskeletal Provider 10/20/20 04/17/22 Alfreda Ray PA-C [address] [place] [address] 193942 Referring Physician Family Medicine 12/31/21 Katrin Orellana PA-C [address] [place] [address] 395245 Physician Event Host Dermatology 12/31/21 Shanna Vang PA-C [address] [place] [address] 140524 Assigned Cancer Care Provider 01/10/22 Fransisco Eddy MD [address] [place] [address] Assigned Rheumatology Provider 05/09/22 [place] [address] [place] [address] Assigned Pain Medication Provider 06/29/22 09/04/22 [place] [address] [place] [address] Assigned PCP 08/15/22 08/28/22 Katrin Orellana PA-C [address] [place] [address] 19083 Assigned Surgical Provider 08/15/22 02/10/24 Cristina Hsieh [facility] 3305 [facility] [place]BETH HERNANDEZ [address] Pharmacist Pharmacist 09/07/22 Alfreda Ray PA-C [address] [place] [address] Assigned Pain Medication Provider 09/05/22 09/10/23 Alfreda Ray PA-C [address] [place] [address] Assigned PCP 08/29/22 Cristina Hsieh [facility] [address] [address] Assigned MTM Pharmacist 09/26/22 Dakota Tatum MD 1600 [facility] 101 [place] [address] Cardiovascular Disease 03/25/23 Dakota Tatum MD Assigned Heart and Vascular Provider 05/01/23 11/09/24 [place] [address] [address], [facility] [address] [place] [address] Assigned Musculoskeletal Provider 04/12/24 Johanne Gutierrez RN RN Clinical Product Navigator Primary Care - CC 08/18/24 08/18/24 Linda Ambriz, [facility] Lead Rn Angiography 08/18/24 08/23/24 documented as of this encounter
--- OUTSIDE RECORDS SUMMARY | 2025-02-24 20:51 | XMS_ITS | Encounter Summary ---
Author Organization [place] Address [address] [place] [address] Care Team Providers Care Search Marketing Specialist Name Role Phone Esperanza Gatica MD Primary Care Provider + Esperanza Gatica MD Unavailable + Jesús Orourke MD Unavailable Alfreda Ray-C Primary Care Provider + Alfreda RayC Unavailable +[phone] Katrin Orellana PA-C Unavailable +[phone] Shanna Vang PA-C Unavailable +[phone] Fransisco Eddy MD Unavailable +[phone] Esperanza Gatica MD Unavailable + Esperanza Gatica MD Unavailable +80 Katrin OrellanaC Unavailable +[phone] Cristina Hsieh [facility] Unavailable +[phone] Alfreda Ray PA-C Unavailable +260 Alfreda Ray PA-C Unavailable +2600 Cristina Hsieh [facility] Unavailable +[phone] Dakota Tatum MD Unavailable Unava ilDakota Padgett MD Unavailable Unava ilSrinivas Yun DO Unavailable +[phone] Johanne Gutierrez RN Unavailable +[phone] Linda Ambriz [facility] Unavailable +[phone] Encounter Details Date Type Department Care Team (Late st Contact Info) Description 10/29/2020 MyC Medical Advice [facility] [address] [place] [address] [place] [address] [place] [address] Social History Tobacco Use Types [...] Assigned at Female 08/17/2018 7:56 AM SUPPORT REPRESENTATIVE Legal Sex Female 4:24 AM SUPPORT REPRESENTATIVE Gender Identity Female 08/17/2018 7:56 AM SUPPORT REPRESENTATIVE Sexual Orientation Straight 08/17/2018 7: 56 AM SUPPORT REPRESENTATIVE COVID-19 Exposure Response Date Recorded In the last month, have you been in contact with someone who was confirmed or suspected to have Coronavirus / COVID-19? No / Unsure 10/29/2020 2:27 PM CDT documented as of this encounter Plan of Treatment Upcoming Encounters Date Type Department Care Team (Late Contact Info) Description 06/28/2025 3:00 PM SUPPORT REPRESENTATIVE Office Visit [facility] [place] [address] [facility] 200 [place] [address] Fransisco Eddy MD [address] [place] [address] documented as of this encounter Visit Diagnoses Not on filedocumented in this encounter Additional Health Concerns Infection Onset Date Last Indicated Resolved Time Rule Out COVID-19 05/08/2021 05/08/2021 05/09/2021 9:08 PM SUPPORT REPRESENTATIVE Assessment Noted Time PHQ-9 Depression Total Score: 0 08/31/19 21 11:22 AM SUPPORT REPRESENTATIVE documented as of this encounter Care Teams Search Marketing Specialist Relationship Specialty Start Date End Date Esperanza Gatica MD PCP - General Family Practice 10/13/11 12/29/21 Alfreda Ray PA-C [address] [place] [address] [id number] PCP - General Family Medicine 12/30/21 [place] [address] [place] [address] Assigned PCP 09/29/20 07/31/22 Jesú[place] [address] [address] [facility] [place] [place], [place] 4822[address] Assigned Musculoskeletal Provider 10/20/20 04/17/22 Alfreda Ray PA-C [address] [place] [address] 915332 Referring Physician Family Medicine 12/31/21 Katrin Orellana PA-C [address] [place] [address] [phone] Physician Boiler Or Engine Operator Dermatology 12/31/21 Shanna Vang PA-C [address] [place] [address] 078954 Assigned Cancer Care Provider 01/10/22 Fransisco Eddy MD [address] [place] [address] [address] [place] [address] Assigned Rheumatology Provider 05/09/22 [place] [address] [place] [address] Assigned Pain Medication Provider 06/29/22 09/04/22 [place] [address] [place] [address] Assigned PCP 08/15/22 08/28/22 Katrin Orellana PA-C [address] [place] [address] Assigned Surgical Provider 08/15/22 02/10/24 Cristina Hsieh [facility] [address] [facility] [place]BETH [place]NANDEZ [address] Pharmacist Pharmacist 09/07/22 Alfreda Ray PA-C [address] [place] [address] Assigned Pain Medication Provider 09/05/22 09/10/23 Alfreda Ray PA-C [address] [place] [address] Assigned PCP 08/29/22 Cristina Hsieh [facility] [address] [id number] Assigned MTM Pharmacist 09/26/22 Dakota Tatum MD 1600 [facility] [address] [place] [address] Cardiovascular Disease 03/25/23 Dakota Tatum MD Assigned Heart and Vascular Provider 05/01/23 11/09/24 [place] [address] [address], [facility] 300 [place] [address] Assigned Musculoskeletal Provider 04/12/24 Johanne Gutierrez RN RN Clinical Product Navigator Primary Care - CC 08/18/24 08/18/24 Linda Ambriz, [facility] Lead Sander Machine 08/18/24 08/23/24 documented as of this encounter
--- OUTSIDE RECORDS SUMMARY | 2025-02-24 20:51 | XMS_ITS | Encounter Summary ---
Author Organization [place] Address [address] [place] [address] Care Team Providers Care President Ergonomic Consulting Name Role Phone Esperanza Gatica MD Primary Care Provider + Esperanza Gatica MD Unavailable +[phone] Esperanza Gatica MD Unavailable +[phone] Esperanza Gatica MD Unavailable +417 Esperanza Gatica MD Unavailable +469 Esperanza Gatica MD Unavailable +212 Esperanza Gatica MD Unavailable +[phone] Jesús Orourke MD Unavailable Alfreda RayC Primary Care Provider + Alfreda Ray PA-C Unavailable +[phone] Katrin Orellana PA-C Unavailable +[phone] Shanna VangC Unavailable +[phone] Fransisco Eddy MD Unavailable +[phone] Esperanza Gatica MD Unavailable +[phone] Esperanza Gatica MD Unavailable +[phone] Katrin Orellana PA-C Unavailable Cristina Hsieh [facility] Unavailable +[phone] Cory Alfreda Liu PA-C Unavailable +[phone] Ho Raymustapha Liu PA-C Unavailable +[phone] Cristina Hsieh [facility] Unavailable +[phone] Dakota Tatum MD Unavailable Unava ilable Dakota Tatum MD Unavailable Unava ilable CynthiaSrinivas Unavailable +[phone] Brenda Johanne Salome RN Unavailable [phone] Linda Ambriz Gall[facility] Unavailable [phone] Reason for Visit * Reason Onset Date Comments Refill Request 01/14/2013 vicodin Encounter Details Date Type Department Care Team (Late st Contact Info) Description 01/14/2013 MyC Refill [address], [address] [place] [address] [place] [address] [place] [address] Refill Request (vicodin) Social History Tobacco Use Types Packs/Day Years Used Date Smoking Tobacco: Former Cigarettes Q uit: 06/21/1973 Smokeless Tobacco: Former Alcohol Use Standard Drinks/Week Comments Yes 0 (1 standard drink = 0.6 oz pur e alcohol) rarely Comments No Sex and Gender Information Value Date Recorded Sex Assigned at Female 08/17/2018 7:56 AM BAKER TEST Legal Sex Female 4:24 AM BAKER TEST Gender Identity Female 08/17/2018 7:56 AM BAKER TEST Sexual Orientation Straight 08/17/2018 7: 56 AM BAKER TEST documented as of this encounter Miscellaneous Notes [...] Harper - 01/16/2013 11:06 AM CDTMessage from [employer]: Original authorizing provider: MD Alexandria Brannon would like a refill of the following medications: HYDROcodone-acetaminophen (VICODIN) 5-500 MG per tablet [Esperanza Gatica MD] Preferred pharmacy: [id number] Comment: Sent from my iPad documented in this encounter Plan of Treatment Upcoming Encounters Date Type Department Care Team (Late st Contact Info) Description 06/28/2025 3:00 PM BAKER TEST Office Visit [facility] [address] [address] Fransisco Eddy MD [address] [place] [address] documented as of this encounter Visit Diagnoses Diagnosis Osteoarthritis- Primary Osteoarthrosis, unspecified whether generalized or localized, unspecified site documented in this encounter Additional Health Concerns Infection Onset Date Last Indicated Resolved Time Rule Out COVID-19 05/08/2021 05/08/2021 05/09/2021 9:08 PM BAKER TEST documented as of this encounter Care Teams President Ergonomic Consulting Relationship Specialty Start Date End Date Esperanza Gatica MD PCP - General Family Practice 10/13/11 12/29/21 [place] [address] [place] [address] PCP - Assigned PCP 12/05/17 08/23/18 Alfreda Ray PA-C [address] [place] [address] PCP - General Family Medicine 12/30/21 [place] [address] [place] [address] Assigned PCP 12/05/17 09/30/19 [place] [address] [place] [address] Assigned PCP 10/01/19 03/02/20 [place] [address] [place] [address] Assigned PCP 03/03/20 05/25/20 [place] [address] [place] [address] Assigned PCP 05/26/20 09/28/20 [place] [address] [place] [address] Assigned PCP 09/29/20 07/31/22 [place] [address] [place] [address] Assigned Musculoskeletal Provider 10/20/20 04/17/22 Alfreda Ray PA-C 4151 [place] [address] Referring Physician Family Medicine 12/31/21 Katrin Orellana PA-C [address] [address] Physician Medical Payment Poster Dermatology 12/31/21 Shanna Vang PA-C [address] [place] [address] Assigned Cancer Care Provider 01/10/22 Fransisco Eddy MD [address] [place] [address] 805795 Assigned Rheumatology Provider 05/09/22 [place] [address] [place] [address] Assigned Pain Medication Provider 06/29/22 09/04/22 [place] [address] [place] [address] Assigned PCP 08/15/22 08/28/22 Katrin Orellana PA-C [address] [place] [address] Assigned Surgical Provider 08/15/22 02/10/24 Cristina Hsieh [facility] [address] [place] [address] L[place]BETH HERNANDEZ [address] Pharmacist Pharmacist 09/07/22 Alfreda Ray PA-C [address] [place] [address] Assigned Pain Medication Provider 09/05/22 09/10/23 Alfreda Ray PA-C 4151 [place] [address] Assigned PCP 08/29/22 Cristina Hsieh, [facility] [address] [address] Assigned MTM Pharmacist 09/26/22 Dakota Tatum MD [address] [address] Cardiovascular Disease 03/25/23 Dakota Tatum MD Assigned Heart and Vascular Provider 05/01/23 11/09/24 [place] [address] [address] , [address] [address] Assigned Musculoskeletal Provider 04/12/24 Johanne Gutierrez, RN RN Clinical Product Navigator Primary Care - CC 08/18/24 08/18/24 Linda Ambriz, [facility] Lead Vacuum Metalizer Operator 08/18/24 08/23/24 documented as of this encounter
--- OUTSIDE RECORDS SUMMARY | 2025-02-24 20:51 | XMS_ITS | Encounter Summary ---
Author Organization [place] Address [address] [place] [address] Care Team Providers Care Program Review Director Name Role Phone Esperanza Gatica MD Primary Care Provider + Esperanza Gatica MD Unavailable + Jesús Orourke MD Unavailable Alfreda Ray-C Primary Care Provider + Alfreda RayC Unavailable +2605 Katrin Orellana PA-C Unavailable +1-12 Shanna Vang PA-C Unavailable +[phone] Fransisco Eddy MD Unavailable +[phone] Esperanza Gatica MD Unavailable + Esperanza Gatica MD Unavailable +95 Katrin OrellanaC Unavailable +[phone] Cristina Hsieh [facility] Unavailable +[phone] Alfreda Ray PA-C Unavailable +260 Alfreda Ray PA-C Unavailable +2600 Cristina Hsieh [facility] Unavailable +[phone] Dakota Tatum MD Unavailable Unava ilDakota Padgett MD Unavailable Unava pamela Srinivas Marie DO Unavailable +[phone] Johanne Gutierrez RN Unavailable +[phone] Linda Ambriz [facility] Unavailable +[phone] Reason for Visit * Reason Comments Medication Refill Encounter Details Date Type Department Care Team (Late Contact Info) Description 11/06/[address] [address] [place] [address] [place] [address] Medication Refill Social History Tobacco [...] Assigned at Female 08/17/2018 7:56 AM TUBE COVERER Legal Sex Female 4:24 AM TUBE COVERER Gender Identity Female 08/17/2018 7:56 AM TUBE COVERER Sexual Orientation Straight 08/17/2018 7: 56 AM TUBE COVERER COVID-19 Exposure Response Date Recorded In the last month, have you been in contact with someone who was confirmed or suspected to have Coronavirus / COVID-19? No / Unsure 11/05/2020 1:48 PM CDT documented as of this encounter Miscellaneous Notes * Telephone Encounter - Caitlin Waterman RN - 11/07/2020 10:23 AM CDT Prescription approved per [facility] protocol. Caitlin Waterman RN on 11/07/2020 at 10:23 AM documented in this encounter Plan of Treatment Upcoming Encounters Date Type Department Care Team ([facility] Contact Info) Description 06/28/2025 3:00 PM TUBE COVERER Office Visit [facility] [place] [address] [place] [address] [address] [place] [id number] Fransisco Eddy MD [address] [place] [address] documented as of this encounter Visit Diagnoses Diagnosis HTN, goal below 140/90 Unspecified essential hypertension documented in this encounter Additional Health Concerns Infection Onset Date Last Indicated Resolved Time Rule Out COVID-19 05/08/2021 05/08/2021 05/09/2021 9:08 PM TUBE COVERER Assessment Noted Time PHQ-9 Depression Total Score: 0 08/31/19 21 11:22 AM TUBE COVERER documented as of this encounter Care Teams Program Review Director Relationship Specialty Start Date End Date Esperanza Gatica MD PCP - General Family Practice 10/13/11 12/29/21 Alfreda Ray PA-C [address] [place] [address] PCP - General Family Medicine 12/30/21 [place] [address] [place] [address] Assigned PCP 09/29/20 07/31/22 Jesú[place] [address] [place] [address] Assigned Musculoskeletal Provider 10/20/20 04/17/22 Alfreda Ray PA-C [address] [place] [address] Referring Physician Family Medicine 12/31/21 Katrin Orellana PA-C [address] [place] [address] Physician Cherry Pitter Dermatology 12/31/21 Shanna Vang PA-C [address] [place] [address] Assigned Cancer Care Provider 01/10/22 Fransisco Eddy MD [address] [place] [address] Assigned Rheumatology Provider 05/09/22 [place] [address] [place] [address] Assigned Pain Medication Provider 06/29/22 09/04/22 [place] [address] [place] [address] Assigned PCP 08/15/22 08/28/22 Katrin Orellana PA-C [address] [place] [address] Assigned Surgical Provider 08/15/22 02/10/24 Cristina Hsieh [facility] [address] [place] [address] [place] [address] Pharmacist Pharmacist 09/07/22 Alfreda Ray PA-C [address] [place] [address] Assigned Pain Medication Provider 09/05/22 09/10/23 Alfreda Ray PA-C [address] [place] [address] Assigned PCP 08/29/22 Cristina Hsieh, [facility] 1600 [facility] [address] [place] [address] Assigned MTM Pharmacist 09/26/22 Dakota Tatum MD [address] [address] Cardiovascular Disease 03/25/23 Dakota Tatum MD Assigned Heart and Vascular Provider 05/01/23 11/09/24 [place] [address] [facility], [address] [address] Assigned Musculoskeletal Provider 04/12/24 Johanne Gutierrez RN RN Clinical Product Navigator Primary Care - CC 08/18/24 08/18/24 Linda Ambriz, [facility] Lead Clinical Editor 08/18/24 08/23/24 documented as of this encounter
--- OUTSIDE RECORDS SUMMARY | 2025-02-24 20:51 | XMS_ITS | Encounter Summary ---
Author Organization [facility] Address [address] [place] [address] Care Team Providers Care Well Driller Helper Name Role Phone Esperanza Gatica MD Primary Care Provider + Esperanza Gatica MD Unavailable +[phone] Esperanza Gatica MD Unavailable +[phone] Esperanza Gatica MD Unavailable +302 Esperanza Gatica MD Unavailable +010 Esperanza Gatica MD Unavailable +[phone] Esperanza Gatica MD Unavailable +[phone] Jesús Orourke MD Unavailable Alfreda RayC Primary Care Provider + Alfreda Ray PA-C Unavailable +- [phone] Katrin Orellana PA-C Unavailable +[phone] Shanna VangC Unavailable +[phone] Fransisco Eddy MD Unavailable +[phone] Esperanza Gatica MD Unavailable +[phone] Esperanza Gatica MD Unavailable +[phone] Katrin Orellana PA-C Unavailable Cristina Hsieh [facility] Unavailable +[phone] Cory Alfreda Liu PA-C Unavailable +[phone] Alfreda Ray Alexa KING Unavailable +[phone] Cristina Hsieh [facility] Unavailable +[phone] Dakota Tatum MD Unavailable Unava ilable Dakota Tatum MD Unavailable Unava ilable Srinivas Marie DO Unavailable +[phone] Johanne Gutierrez Salome RN Unavailable +[phone] Linda Ambriz Gallito [facility] Unavailable +[phone] Reason for Visit * Reason Onset Date Comments Refill Request 08/30/2013 Multiple meds Encounter Details Date Type Department Care Team (Late st Contact Info) Description 08/30/2013 MyC Medical Advice [address], [address] [place] [address] [place] [address] [place] [place], [place] [id number] Refill Request (Multiple meds) Social History Tobacco Use Types Packs/Day Years Used Date Smoking Tobacco: Former Cigarettes Q uit: 06/21/1973 Smokeless Tobacco: Former Alcohol Use Standard Drinks/Week Comments Yes 0 (1 standard drink = 0.6 oz pur e alcohol) rarely Comments No Sex and Gender Information Value Date Recorded Sex Assigned at Female 08/17/2018 7:56 AM PULMONARY SPECIALIST Legal Sex Female 4:24 AM PULMONARY SPECIALIST Gender Identity Female 08/17/2018 7:56 AM PULMONARY SPECIALIST Sexual Orientation Straight 08/17/2018 7: 56 AM PULMONARY SPECIALIST documented as of this encounter Plan of Treatment Upcoming Encounters Date Type Department Care Team (Late st Contact Info) Description 06/28/2025 3:00 PM PULMONARY SPECIALIST Office Visit [address] [place] [address] Fransisco Eddy MD [address] [place] [address] documented as of this encounter Visit Diagnoses Diagnosis HTN (hypertension), benign- Primary Essential hypertension, benign Insomnia, unspecified Hyperlipidemia LDL goal <160 Other and unspecified hyperlipidemia documented in this encounter Additional Health Concerns Infection Onset Date Last Indicated Resolved Time Rule Out COVID-19 05/08/2021 05/08/2021 05/09/2021 9:08 PM PULMONARY SPECIALIST documented as of this encounter Care Teams Well Driller Helper Relationship Specialty Start Date End Date Esperanza Gatica MD PCP - General Family Practice 10/13/11 12/29/21 [place] [address] [place] GARCIA [address] PCP - Assigned PCP 12/05/17 08/23/18 Alfreda Ray PA-C [address] [place] [address] PCP - General Family Medicine 12/30/21 [place] [address] [address] GARCIA [address] Assigned PCP 12/05/17 09/30/19 [place] [address] [address] [place] [address] Assigned PCP 10/01/19 03/02/20 [place] [address] [address] [place]ARCIA [address] Assigned PCP 03/03/20 05/25/20 [place] [address] [address] [place] [address] Assigned PCP 05/26/20 09/28/20 [place] [address] [place] [address] Assigned PCP 09/29/20 07/31/22 [place] [address] [place] [address] Assigned Musculoskeletal Provider 10/20/20 04/17/22 Alfreda Ray PA-C [address] [place] [address] 468342 Referring Physician Family Medicine 12/31/21 Katrin Orellana PA-C [address] [place] [address] 333315 Physician Digital Advertising Analyst Dermatology 12/31/21 Shanna Vang PA-C [address] [place] [address] 063134 Assigned Cancer Care Provider 01/10/22 Fransisco Eddy MD [address] [place] [address] 160705 Assigned Rheumatology Provider 05/09/22 [place] [address] [place] [address] Assigned Pain Medication Provider 06/29/22 09/04/22 [place] [address] [place] [address] Assigned PCP 08/15/22 08/28/22 Katrin Orellana PA-C [address] [place] [address] Assigned Surgical Provider 08/15/22 02/10/24 Cristina Hsieh [facility] [address] [place] [address] Pharmacist Pharmacist 09/07/22 Alfreda Ray PA-C [address] [place] [address] 925982 Assigned Pain Medication Provider 09/05/22 09/10/23 Alfreda Ray PA-C [address] [place] [address] 788112 Assigned PCP 08/29/22 Cristina Hsieh [facility] [address] [address] Assigned MTM Pharmacist 09/26/22 Dakota Tatum MD [address] [address] Cardiovascular Disease 03/25/23 Dakota Tatum MD Assigned Heart and Vascular Provider 05/01/23 11/09/24 [place] [address] [place] , [address] [address] Assigned Musculoskeletal Provider 04/12/24 Johanne Gutierrez, RN RN Clinical Product Navigator Primary Care - CC 08/18/24 08/18/24 Linda Ambriz, [facility] Lead Remote Sensing Scientist 08/18/24 08/23/24 documented as of this encounter
--- OUTSIDE RECORDS SUMMARY | 2025-02-24 20:51 | XMS_ITS | Encounter Summary ---
Author Organization [facility] Address [address] [place] [address] Care Team Providers Care Loader Malt House Name Role Phone Esperanza Gatica MD Primary Care Provider + Esperanza Gatica MD Unavailable +[phone] Esperanza Gatica MD Unavailable +[phone] Esperanza Gatica MD Unavailable +630 Esperanza Gatica MD Unavailable +219 Esperanza Gatica MD Unavailable +199 Esperanza Gatica MD Unavailable +[phone] Jesús Orourke MD Unavailable Alfreda RayC Primary Care Provider + Alfreda Ray PA-C Unavailable +- [phone] Katrin Orellana PA-C Unavailable +[phone] Shanna VangC Unavailable +[phone] Fransisco Eddy MD Unavailable +[phone] Esperanza Gatica MD Unavailable +[phone] Esperanza Gatica MD Unavailable +[phone] Katrin Orellana PA-C Unavailable Cristina Hsieh [facility] Unavailable +[phone] Ho Raymustapha Liu PA-C Unavailable +[phone] Alfreda Ray Alexa KING Unavailable +[phone] Cristina Hsieh [facility] Unavailable [phone] Dakota Tatum MD Unavailable Unava ilable Dakota Tatum MD Unavailable Unava ilable Srinivas Marie Unavailable +[phone] Brenda Johanne Salome RN Unavailable [phone] Linda Ambriz Gallito [facility] Unavailable +[phone] Reason for Visit * Reason Onset Date Comments Refill Request 08/28/2013 tramadol Encounter Details Date Type Department Care Team (Late st Contact Info) Description 08/28/2013 MyC Refill [address], [address] [place] [address] [place] [address] [place] [address] Refill Request (tramadol) Social History Tobacco Use Types Packs/Day Years Used Date Smoking Tobacco: Former Cigarettes Q uit: 06/21/1973 Smokeless Tobacco: Former Alcohol Use Standard Drinks/Week Comments Yes 0 (1 standard drink = 0.6 oz pur e alcohol) rarely Comments No Sex and Gender Information Value Date Recorded Sex Assigned at Female 08/17/2018 7:56 AM TRAVELING ACCOUNTANT Legal Sex Female 4:24 AM TRAVELING ACCOUNTANT Gender Identity Female 08/17/2018 7:56 AM TRAVELING ACCOUNTANT Sexual Orientation Straight 08/17/2018 7: 56 AM TRAVELING ACCOUNTANT documented as of this encounter Miscellaneous Notes * Telephone Encounter - Diane Macedo RN - 08/28/2013 11:57 AM CDT Does not meet standard requirement for RN refill protocol. Medication: tramadol Last OV: 07/14/13 Provider: MD ZAIDA Reason for visit: HTN, CKD, etc... Last refill: 07/31/13 #30 Please refill if appropriate. Thank you! Diane Macedo RN [facility] Work Force * Telephone Encounter - Diane Macedo RN - 08/28/2013 11:57 AM CDT Message from [employer]: Original authorizing provider: MD Alexandria Brannon would like a refill of the following medications: traMADol (ULTRAM) 50 MG tablet [Esperanza Gatica MD] Preferred pharmacy: [id number] Comment: Sent from my iPad documented in this encounter Plan of Treatment Upcoming Encounters Date Type Department Care Team (Late st Contact Info) Description 06/28/2025 3:00 PM TRAVELING ACCOUNTANT Office Visit [facility] [address] [phone] Fransisco Eddy MD [address] [place] [address] documented as of this encounter Visit Diagnoses Diagnosis Knee pain Pain in joint, lower leg documented in this encounter Additional Health Concerns Infection Onset Date Last Indicated Resolved Time Rule Out COVID-19 05/08/2021 05/08/2021 05/09/2021 9:08 PM TRAVELING ACCOUNTANT documented as of this encounter Care Teams Loader Malt House Relationship Specialty Start Date End Date Esperanza Gatica MD PCP - General Family Practice 10/13/11 12/29/21 [place] [address] [place] [address] PCP - Assigned PCP 12/05/17 08/23/18 Alfreda Ray PA-C [address] [place] [address] PCP - General Family Medicine 12/30/21 [place] [address] [place] [address] Assigned PCP 12/05/17 09/30/19 [place] [address] [place] [address] Assigned PCP 10/01/19 03/02/20 [place] [address] [place] [address] Assigned PCP 03/03/20 05/25/20 [place] [address] [place] [address] Assigned PCP 05/26/20 09/28/20 [place] [address] [place] [address] Assigned PCP 09/29/20 07/31/22 [place] [address] [address] [place]AN [address] Assigned Musculoskeletal Provider 10/20/20 04/17/22 Alfreda Ray PA-C [address] [place] [address] Referring Physician Family Medicine 12/31/21 Katrin Orellana PA-C [address] [address] Physician Skiver Heel Tap Dermatology 12/31/21 Shanna Vang PA-C [address] [place] [address] Assigned Cancer Care Provider 01/10/22 Fransisco Eddy MD [address] [place] [address] 290295 Assigned Rheumatology Provider 05/09/22 [place] [address] [place] [address] Assigned Pain Medication Provider 06/29/22 09/04/22 [place] [address] [place] [address] Assigned PCP 08/15/22 08/28/22 Katrin Orellana PA-C [address] [place] [address] Assigned Surgical Provider 08/15/22 02/10/24 Cristina Hsieh [facility] [address] [facility] L[place]BETH HERNANDEZ [address] Pharmacist Pharmacist 09/07/22 Alfreda Ray PA-C [address] [place] [address] Assigned Pain Medication Provider 09/05/22 09/10/23 Alfreda Ray PA-C 4151 [place], [place] 388002 Assigned PCP 08/29/22 Cristina Hsieh, [facility] [address] [address] Assigned MTM Pharmacist 09/26/22 Dakota Tatum MD [address] [address] Cardiovascular Disease 03/25/23 Dakota Tatum MD Assigned Heart and Vascular Provider 05/01/23 11/09/24 [place] [address] [address] , [address] [address] Assigned Musculoskeletal Provider 04/12/24 Johanne Gutierrez RN RN Clinical Product Navigator Primary Care - CC 08/18/24 08/18/24 Linda Ambriz, [facility] Lead Orthopedic Brace Maker 08/18/24 08/23/24 documented as of this encounter
--- OUTSIDE RECORDS SUMMARY | 2025-02-24 20:51 | XMS_ITS | Encounter Summary ---
Author Organization [facility] Address [address] [place] [address] Care Team Providers Care Stretching Press Operator Name Role Phone Esperanza Gatica MD Primary Care Provider + Esperanza Gatica MD Unavailable +[phone] Esperanza aGtica MD Unavailable +504 Esperanza Gatica MD Unavailable +798 Esperanza Gatica MD Unavailable +131 Esperanza Gatica MD Unavailable +951 Esperanza Gatica MD Unavailable +[phone] Jesús Orourke MD Unavailable Alfreda RayC Primary Care Provider + Alfreda Ray PA-C Unavailable +- [phone] Katrin Orellana PA-C Unavailable +[phone] Shanna VangC Unavailable +[phone] Fransisco Eddy MD Unavailable +[phone] Esperanza Gatica MD Unavailable +[phone] Esperanza Gatica MD Unavailable +[phone] Katrin Orellana PA-C Unavailable +[phone] Cristina Hsieh [facility] Unavailable +[phone] RayAlfreda PA-C Unavailable +[phone] Cory Alfreda Liu PA-C Unavailable +[phone] Cristina Hsieh [facility] Unavailable +[phone] Dakota Tatum MD Unavailable Unava ilable Dakota Tatum MD Unavailable Unava ilable Cynthia, Srinivas Unavailable +[phone] Brenda Johanne [place] RN Unavailable [phone] Linda Ambriz [facility] Unavailable +[phone] Reason for Visit * Reason Onset Date Comments Refill Request 06/24/2013 Lisinopril-HCTZ Encounter Details Date Type Department Care Team (Late st Contact Info) Description 06/24/2013 MyC Refill [address], [address] [place] [address] [place] [address] [place] [address] Refill Request (Lisinopril-HCTZ) Social History Tobacco Use Types Packs/Day Years Used Date Smoking Tobacco: Former Cigarettes Q uit: 06/21/1973 Smokeless Tobacco: Former Alcohol Use Standard Drinks/Week Comments Yes 0 (1 standard drink = 0.6 oz pur e alcohol) rarely Comments No Sex and Gender Information Value Date Recorded Sex Assigned at Female 08/17/2018 7:56 AM CATEGORY MANAGER Legal Sex Female 4:24 AM CATEGORY MANAGER Gender Identity Female 08/17/2018 7:56 AM CATEGORY MANAGER Sexual Orientation Straight 08/17/2018 7: 56 AM CATEGORY MANAGER documented as of this encounter Miscellaneous [...] Will route to provider. Leigha Rinaldi RN GORY MANAGER * Telephone Encounter - Leigha Rinaldi - 06/26/2013 7:59 AM CSTMessage [facility] Original authorizing provider: MD Alexandria Brannon would like a refill of the following medications: lisinopril-hydrochlorothiazide (PRINZIDE,ZESTORETIC) 10-12.5 MG per tablet [Esperanza Gatica MD] Preferred pharmacy: [facility] [address] [place] [address] Comment: Sent from my iPadI called this in to the pharmacy but it hasn't been filled. I take the last one onWednesday (6th). GORY MANAGER documented in this encounter Plan of Treatment Upcoming Encounters Date Type Department Care Team (Late st Contact Info) Description 06/28/2025 3:00 PM CATEGORY MANAGER Office Visit [facility] [address] [address] Fransisco Eddy MD [address] [place] [address] documented as of this encounter Visit Diagnoses Diagnosis HTN (hypertension), benign Essential hypertension, benign documented in this encounter Additional Health Concerns Infection Onset Date Last Indicated Resolved Time Rule Out COVID-19 05/08/2021 05/08/2021 05/09/2021 9:08 PM CATEGORY MANAGER documented as of this encounter Care Teams Stretching Press Operator Relationship Specialty Start Date End Date Esperanza Gatica MD PCP - General Family Practice 10/13/11 12/29/21 [place] [address] [address] GARCIA [id number] PCP - Assigned PCP 12/05/17 08/23/18 Alfreda Ray PA-C [address] [place] [address] PCP - General Family Medicine 12/30/21 [place] [address] [place] [address] Assigned PCP 12/05/17 09/30/19 [place] [address] [place] [address] Assigned PCP 10/01/19 03/02/20 [place] [address] [place] [address] Assigned PCP 03/03/20 05/25/20 [place] [address] [place] [address] Assigned PCP 05/26/20 09/28/20 [place] [address] [place] [address] Assigned PCP 09/29/20 07/31/22 [place] [address] [place] [address] Assigned Musculoskeletal Provider 10/20/20 04/17/22 Alfreda Ray PA-C [address] [place] [address] Referring Physician Family Medicine 12/31/21 Katrin Orellana PA-C [address] [place] [address] Physician Carbon Electrodes Supervisor Dermatology 12/31/21 Shanna Vang PA-C [address] [place] [address] Assigned Cancer Care Provider 01/10/22 Fransisco Eddy MD [address] [place] [address] Assigned Rheumatology Provider 05/09/22 [place] [address] [place] [address] Assigned Pain Medication Provider 06/29/22 09/04/22 [place] [address] [place] [address] Assigned PCP 08/15/22 08/28/22 Katrin Orellana PA-C [address] [place] [address] Assigned Surgical Provider 08/15/22 02/10/24 Cristina Hsieh [facility] [address] [place] [address] LISBETH HERNANDEZ [address] Pharmacist Pharmacist 09/07/22 Alfreda Ray PA-C [address] [place] [address] Assigned Pain Medication Provider 09/05/22 09/10/23 Alfreda Ray PA-C [address] [place] [address] Assigned PCP 08/29/22 Cristina Hsieh, [facility] [address] [address] Assigned MTM Pharmacist 09/26/22 Dakota Tatum MD [address] [address] Cardiovascular Disease 03/25/23 Dakota Tatum MD Assigned Heart and Vascular Provider 05/01/23 11/09/24 [place] [address] [place] , [address] [address] Assigned Musculoskeletal Provider 04/12/24 Johanne Gutierrez, RN RN Clinical Product Navigator Primary Care - CC 08/18/24 08/18/24 Linda Ambriz, [facility] Lead [place] Conservation Laborer 08/18/24 08/23/24 documented as of this encounter
--- OUTSIDE RECORDS SUMMARY | 2025-02-24 20:51 | XMS_ITS | Encounter Summary ---
Author Organization [facility] Address [address] [place] [address] Care Team Providers Care Commercial Specialist Name Role Phone Esperanza Gatica MD Primary Care Provider + Esperanza Gatica MD Unavailable + Esperanza Gatica MD Unavailable + Jesús Orourke MD Unavailable Alfreda RayC Primary Care Provider + Alfreda Ray-C Unavailable +260 Katrin Orellana PA-C Unavailable +[phone] Shanna Vang PA-C Unavailable +[phone] Fransisco Eddy MD Unavailable +[phone] Esperanza Gatica MD Unavailable + Esperanza Gatica MD Unavailable + Katrin OrellanaC Unavailable +[phone] Cristina Hsieh [facility] Unavailable +- [phone] Alfreda Ray PA-C Unavailable +[phone] Alfreda Ray PA-C Unavailable +[phone] Cristina Hsieh [facility] Unavailable Dakota Tatum MD Unavailable Unava ilable Dakota Tatum MD Unavailable Unava ilable CynthiaSrinivas Unavailable +[phone] Johanne Gutierrez RN Unavailable [phone] Pb Linda Gallito DRIVER/MERCHANDISER Unavailable +[phone] Encounter Details Date Type Department Care Team (Late st Contact Info) Description 07/04/2020 MyC Medical Advice [address] [address] [place] [address] [place] [address] Social History Tobacco Use Types [...] Sex Assigned at Female 08/17/2018 7:56 AM DIP UNIT OPERATOR Legal Sex Female 4:24 AM DIP UNIT OPERATOR Gender Identity Female 08/17/2018 7:56 AM DIP UNIT OPERATOR Sexual Orientation Straight 08/17/2018 7: 56 AM DIP UNIT OPERATOR documented as of this encounter Plan of Treatment Upcoming Encounters Date Type Department Care Team (Late st Contact Info) Description 06/28/2025 3:00 PM DIP UNIT OPERATOR Office Visit [address] [place] [phone] Fransisco Eddy MD [address] [place] [address] documented as of this encounter Visit Diagnoses Not on filedocumented in this encounter Additional Health Concerns Infection Onset Date Last Indicated Resolved Time Rule Out COVID-19 05/08/2021 05/08/2021 05/09/2021 9:08 PM DIP UNIT OPERATOR Assessment Noted Time PHQ-9 Depression Total Score: 1 08/20/19 19 1:44 PM DIP UNIT OPERATOR documented as of this encounter Care Teams Commercial Specialist Relationship Specialty Start Date End Date Esperanza Gatica MD PCP - General Family Practice 10/13/11 12/29/21 Alfreda Ray PA-C [address] [place] [address] PCP - General Family Medicine 12/30/21 [place] [address] [place] [address] Assigned PCP 05/26/20 09/28/20 [place] [address] [place] [address] Assigned PCP 09/29/20 07/31/22 [place] [address] [address] Assigned Musculoskeletal Provider 10/20/20 04/17/22 Alfreda Ray PA-C [address] [place] [address] 118492 Referring Physician Family Medicine 12/31/21 Katrin Orellana PA-C [address] [place] [address] 370525 Physician Spool Cleaner Hand Dermatology 12/31/21 Shanna Vang PA-C [address] [place] [address] Assigned Cancer Care Provider 01/10/22 Fransisco Eddy MD [address] [place] [address] [address] [place] [address] Assigned Rheumatology Provider 05/09/22 [place] [address] [place] [address] Assigned Pain Medication Provider 06/29/22 09/04/22 [place] [address] [place] [address] Assigned PCP 08/15/22 08/28/22 Katrin Orellana PA-C [address] [place] [address] Assigned Surgical Provider 08/15/22 02/10/24 Cristina Hsieh [facility] [address] [facility] LISBETH HERNANDEZ [address] Pharmacist Pharmacist 09/07/22 Alfreda Ray PA-C [address] [place] [address] Assigned Pain Medication Provider 09/05/22 09/10/23 Alfreda Ray PA-C [address] [place] [address] Assigned PCP 08/29/22 Cristina Hsieh [facility] [address] [address] Assigned MTM Pharmacist 09/26/22 Dakota Tatum MD [address] [facility] [address] [place] [address] Cardiovascular Disease 03/25/23 Dakota Tatum MD Assigned Heart and Vascular Provider 05/01/23 11/09/24 [place] [address] [place], [address] [address] Assigned Musculoskeletal Provider 04/12/24 Johanne Gutierrez RN RN Clinical Product Navigator Primary Care - CC 08/18/24 08/18/24 Linda Ambriz, [facility] Lead Marine Engineer 08/18/24 08/23/24 documented as of this encounter
--- OUTSIDE RECORDS SUMMARY | 2025-02-24 20:51 | XMS_ITS | Encounter Summary ---
Author Organization [place] Address [address] [place] [address] Care Team Providers Care Wort Extractor Name Role Phone Esperanza Gatica MD Primary Care Provider + Esperanza Gatica MD Unavailable + Jesús Orourke MD Unavailable Alfreda Ray-C Primary Care Provider + Alfreda RayC Unavailable +[phone] Katrin Orellana PA-C Unavailable +[phone] Shanna Vang PA-C Unavailable +[phone] Fransisco Eddy MD Unavailable +[phone] Esperanza Gatica MD Unavailable + Esperanza Gatica MD Unavailable +34 Katrin OrellanaC Unavailable +[phone] Cristina Hsieh [facility] Unavailable +[phone] Alfreda Ray PA-C Unavailable +[phone] Alfreda Ray PA-C Unavailable +[phone] Cristina Hsieh [facility] Unavailable +[phone] Dakota Tatum MD Unavailable Unava ilDakota Padgett MD Unavailable Unava brittneySrinivas Yun DO Unavailable Johanne Gutierrez RN Unavailable [phone] Linda Ambriz [facility] Unavailable +[phone] Encounter Details Date Type Department Care Team (Late st Contact Info) Description 10/22/2020 MyC Medical Advice [facility] [place] [id number] [place] [address] [address] [place] [address] Jesú[place] [address] [place], [place] [address] Social History Tobacco Use Types Packs/Day Years [...] Assigned at Female 08/17/2018 7:56 AM SALES ENGAGEMENT EXECUTIVE Legal Sex Female 4:24 AM SALES ENGAGEMENT EXECUTIVE Gender Identity Female 08/17/2018 7:56 AM SALES ENGAGEMENT EXECUTIVE Sexual Orientation Straight 08/17/2018 7: 56 AM SALES ENGAGEMENT EXECUTIVE COVID-19 Exposure Response Date Recorded In the last month, have you been in contact with someone who was confirmed or suspected to have Coronavirus / COVID-19? No / Unsure 10/16/2020 2:03 PM CDT documented as of this encounter Plan of Treatment Upcoming Encounters Date Type Department Care Team (Late st Contact Info) Description 06/28/2025 3:00 PM SALES ENGAGEMENT EXECUTIVE Office Visit [facility] [address] [place] [address] Fransisco Eddy MD [address] [place] [address] documented as of this encounter Visit Diagnoses Not on filedocumented in this encounter Additional Health Concerns Infection Onset Date Last Indicated Resolved Time Rule Out COVID-19 05/08/2021 05/08/2021 05/09/2021 9:08 PM SALES ENGAGEMENT EXECUTIVE Assessment Noted Time PHQ-9 Depression Total Score: 0 08/31/19 21 11:22 AM SALES ENGAGEMENT EXECUTIVE documented as of this encounter Care Teams Wort Extractor Relationship Specialty Start Date End Date Esperanza Gatica MD PCP - General Family Practice 10/13/11 12/29/21 Alfreda Ray PA-C [address] [place] [address] [id number] PCP - General Family Medicine 12/30/21 [place] [address] [place] [address] Assigned PCP 09/29/20 07/31/22 Jesú[place] [address] 194847 Assigned Musculoskeletal Provider 10/20/20 04/17/22 Alfreda Ray PA-C [address] [place] [address] 958552 Referring Physician Family Medicine 12/31/21 Katrin Orellana PA-C [address] [place] [address] 894575 Physician Fuel Cell Engineer Dermatology 12/31/21 Shanna Vang PA-C [address] [place] [address] 344524 Assigned Cancer Care Provider 01/10/22 Fransisco Eddy MD [address] [place] [address] Assigned Rheumatology Provider 05/09/22 [place] [address] [place] [address] Assigned Pain Medication Provider 06/29/22 09/04/22 [place] [address] [place] [address] Assigned PCP 08/15/22 08/28/22 Katrin Orellana PA-C [address] [place] [address] Assigned Surgical Provider 08/15/22 02/10/24 Cristina Hsieh [facility] [address] [facility] [place] [address] Pharmacist Pharmacist 09/07/22 Alfreda Ray PA-C [address] [place] [address] Assigned Pain Medication Provider 09/05/22 09/10/23 Alfreda Ray PA-C [address] [place] [address] Assigned PCP 08/29/22 Cristina Hsieh [facility] [address] [address] Assigned MTM Pharmacist 09/26/22 Dakota Tatum MD [address] [facility] [address] [place] [address] Cardiovascular Disease 03/25/23 Dakota Tatum MD Assigned Heart and Vascular Provider 05/01/23 11/09/24 [place] [address] [address], [facility] [address] [place] [address] Assigned Musculoskeletal Provider 04/12/24 Johanne Gutierrez RN RN Clinical Product Navigator Primary Care - CC 08/18/24 08/18/24 Linda Ambriz, [facility] Lead Shipping/Receiving Clerk 08/18/24 08/23/24 documented as of this encounter
--- OUTSIDE RECORDS SUMMARY | 2025-02-24 20:51 | XMS_ITS | Encounter Summary ---
Author Organization [place] Address [address] [place] [address] Care Team Providers Care Dosimetrist Name Role Phone Esperanza Gatica MD Primary Care Provider + Esperanza Gatica MD Unavailable +[phone] Esperanza Gatica MD Unavailable +273 Esperanza Gatica MD Unavailable +164 Esperanza Gatica MD Unavailable +182 Esperanza Gatica MD Unavailable +320 Esperanza Gatica MD Unavailable +[phone] Jesús Orourke MD Unavailable Alfreda RayC Primary Care Provider + Alfreda Ray PA-C Unavailable +- [phone] Katrin Orellana PA-C Unavailable +[phone] Shanna VangC Unavailable +[phone] Fransisco Eddy MD Unavailable +[phone] Esperanza Gatica MD Unavailable +[phone] Esperanza Gatica MD Unavailable +[phone] Katrin Orellana PA-C Unavailable +[phone] Cristina Hsieh [facility] Unavailable +[phone] Cory Alfreda Liu PA-C Unavailable +[phone] Cory Alfreda Liu PA-C Unavailable +[phone] Cristina Hsieh [facility] Unavailable +[phone] Dakota Tatum MD Unavailable Unava ilable Dakota Tatum MD Unavailable Unava ilable Cynthia, Srinivas Unavailable +[phone] Brenda Johanne Salome RN Unavailable [phone] Linda Ambriz [facility] Unavailable [phone] Reason for Visit * Reason Onset Date Comments Refill Request 12/11/2012 Trazodone 50mg Encounter Details Date Type Department Care Team (Late st Contact Info) Description 12/11/2012 MyC Refill [address], [address] [place] [address] [place] [address] [facility] [place] [address] Refill Request (Trazodone 50mg) Social History Tobacco Use Types Packs/Day Years Used Date Smoking Tobacco: Former Cigarettes Q uit: 06/21/1973 Smokeless Tobacco: Former Alcohol Use Standard Drinks/Week Comments Yes 0 (1 standard drink = 0.6 oz pur e alcohol) rarely Comments No Sex and Gender Information Value Date Recorded Sex Assigned at Female 08/17/2018 7:56 AM MANAGER ENROLLMENT Legal Sex Female 4:24 AM MANAGER ENROLLMENT Gender Identity Female 08/17/2018 7:56 AM MANAGER ENROLLMENT Sexual Orientation Straight 08/17/2018 7: 56 AM MANAGER ENROLLMENT documented as of this encounter Miscellaneous Notes [...] tablet [Esperanza Gatica MD] Preferred pharmacy: [id number] Comment: documented in this encounter Plan of Treatment Upcoming Encounters Date Type Department Care Team (Late st Contact Info) Description 06/28/2025 3:00 PM MANAGER ENROLLMENT Office Visit [facility] Specialty [address] [id number] Fransisco Eddy MD [address] [place] [address] [phone] documented as of this encounter Visit Diagnoses Diagnosis Insomnia, unspecified- Primary documented in this encounter Additional Health Concerns Infection Onset Date Last Indicated Resolved Time Rule Out COVID-19 05/08/2021 05/08/2021 05/09/2021 9:08 PM MANAGER ENROLLMENT documented as of this encounter Care Teams Dosimetrist Relationship Specialty Start Date End Date Esperanza Gatica MD PCP - General Family Practice 10/13/11 12/29/21 [place] [address] [place] [address] PCP - Assigned PCP 12/05/17 08/23/18 Alfreda Ray PA-C [address] [place] [address] 360432 PCP - General Family Medicine 12/30/21 [place] [address] [address] [address] Assigned PCP 12/05/17 09/30/19 [place] [address] [address] [address] Assigned PCP 10/01/19 03/02/20 [place] [address] [address] [address] Assigned PCP 03/03/20 05/25/20 [place] [address] [address] [address] Assigned PCP 05/26/20 09/28/20 [place] [address] [address] [address] Assigned PCP 09/29/20 07/31/22 Jesú[place] [address] [address] Assigned Musculoskeletal Provider 10/20/20 04/17/22 Alfreda Ray PA-C [address] [place] [address] Referring Physician Family Medicine 12/31/21 Katrin Orellana PA-C [address] [place] [address] Physician Microbiology Lab Manager Dermatology 12/31/21 Shanna Vang PA-C [address] [place] [address] Assigned Cancer Care Provider 01/10/22 Fransisco Eddy MD [address] [place] [address] Assigned Rheumatology Provider 05/09/22 [place] [address] [place] [address] Assigned Pain Medication Provider 06/29/22 09/04/22 [place] [address] [facility] [place] [address] Assigned PCP 08/15/22 08/28/22 Katrin Orellana PA-C [address] [place] [address] Assigned Surgical Provider 08/15/22 02/10/24 Cristina Hsieh, [facility] [address] [place] [address] [place] [place] [address] Pharmacist Pharmacist 09/07/22 Alfreda Ray PA-C [address] [place] [address] Assigned Pain Medication Provider 09/05/22 09/10/23 Alfreda Ray PA-C 4151 [place] [address] Assigned PCP 08/29/22 Cristina Hsieh, [facility] [address] [address] Assigned MTM Pharmacist 09/26/22 Dakota Tatum MD [address] [address] Cardiovascular Disease 03/25/23 Dakota Tatum MD Assigned Heart and Vascular Provider 05/01/23 11/09/24 [place] [address] [place] , [address] [address] Assigned Musculoskeletal Provider 04/12/24 Johanne Gutierrez, RN RN Clinical Product Navigator Primary Care - CC 08/18/24 08/18/24 Linda Ambriz, [facility] Lead Product Marketing Intern 08/18/24 08/23/24 documented as of this encounter
--- OUTSIDE RECORDS SUMMARY | 2025-02-24 20:51 | XMS_ITS | Encounter Summary ---
Author Organization [facility] Address [address] [place] [address] Care Team Providers Care Ceramic Tiler Name Role Phone Esperanza Gatica MD Primary Care Provider + Esperanza Gatica MD Unavailable + Jesús Orourke MD Unavailable Alfreda Ray-C Primary Care Provider + Alfreda RayC Unavailable +[phone] Katrin Orellana PA-C Unavailable +[phone] Shanna Vang PA-C Unavailable +[phone] Fransisco Eddy MD Unavailable +[phone] Esperanza Gatica MD Unavailable + Esperanza Gatica MD Unavailable +84 Katrin OrellanaC Unavailable +[phone] Cristina Hsieh [facility] Unavailable +[phone] Alfreda Ray PA-C Unavailable +260 Alfreda Ray PA-C Unavailable +[phone] Cristina Hsieh [facility] Unavailable [phone] Dakota Tatum MD Unavailable Unava ilDakota Padgett MD Unavailable Unava brittneySrinivas Yun DO Unavailable +[phone] Brenda Johanne K RN Unavailable [phone] Linda Ambriz [facility] Unavailable [phone] Reason for Visit * Reason Onset Date Comments Refill Request 10/27/2020 Encounter Details Date Type Department Care Team (Late st Contact Info) Description 10/27/2020 MyC Refill [address], [address] [place] [address] [place] [address] [place] [address] Refill Request Social History Tobacco [...] Sex Assigned at Female 08/17/2018 7:56 AM KERFER MACHINE OPERATOR Legal Sex Female 4:24 AM KERFER MACHINE OPERATOR Gender Identity Female 08/17/2018 7:56 AM KERFER MACHINE OPERATOR Sexual Orientation Straight 08/17/2018 7: 56 AM KERFER MACHINE OPERATOR COVID-19 Exposure Response Date Recorded In the last month, have you been in contact with someone who was confirmed or suspected to have Coronavirus / COVID-19? No / Unsure 10/29/2020 2:27 PM CDT documented as of this encounter Plan of Treatment Upcoming Encounters Date Type Department Care Team (Late st Contact Info) Description 06/28/2025 3:00 PM KERFER MACHINE OPERATOR Office Visit [address] [place] [address] Fransisco Eddy MD [address] [place] [address] documented as of this encounter Visit Diagnoses Diagnosis Primary osteoarthritis involving multiple joints documented in this encounter Additional Health Concerns Infection Onset Date Last Indicated Resolved Time Rule Out COVID-19 05/08/2021 05/08/2021 05/09/2021 9:08 PM KERFER MACHINE OPERATOR Assessment Noted Time PHQ-9 Depression Total Score: 0 08/31/19 11:22 AM KERFER MACHINE OPERATOR documented as of this encounter Care Teams Ceramic Tiler Relationship Specialty Start Date End Date Esperanza Gatica MD PCP - General Family Practice 10/13/11 12/29/21 Alfreda Ray PA-C [address] [place] [address] [phone] PCP - General Family Medicine 12/30/21 [place] [address] [place] [address] Assigned PCP 09/29/20 07/31/22 [place] [address] [place] [address] [place] [address] Assigned Musculoskeletal Provider 10/20/20 04/17/22 Alfreda Ray PA-C [address] [place] [address] 574082 Referring Physician Family Medicine 12/31/21 Katrin Orlelana PA-C [address] [place] [address] 049525 Physician Metalsmith Apprentice Dermatology 12/31/21 Shanna Vang PA-C [address] [place] [address] 492274 Assigned Cancer Care Provider 01/10/22 Fransisco Eddy MD [address] [place] [address] Assigned Rheumatology Provider 05/09/22 [place] [address] [place] [address] Assigned Pain Medication Provider 06/29/22 09/04/22 [place] [address] [place] [address] Assigned PCP 08/15/22 08/28/22 Katrin Orellana PA-C [address] [place] [address] Assigned Surgical Provider 08/15/22 02/10/24 Cristina Hsieh [facility] [address] [place] [address] [place] [address] Pharmacist Pharmacist 09/07/22 Alfreda Ray PA-C [address] [place] [address] Assigned Pain Medication Provider 09/05/22 09/10/23 Alfreda Ray PA-C [address] [place] [address] Assigned PCP 08/29/22 Cristina Hsieh [facility] [address] [address] Assigned MTM Pharmacist 09/26/22 Dakota Tatum MD 1600 [facility] [address] [place] [address] Cardiovascular Disease 03/25/23 Dakota Tatum MD Assigned Heart and Vascular Provider 05/01/23 11/09/24 [place] [address] [address], [facility] 300 [place] [address] Assigned Musculoskeletal Provider 04/12/24 Johanne Gutierrez RN RN Clinical Product Navigator Primary Care - CC 08/18/24 08/18/24 Linda Ambriz, [facility] Lead Organizational Development Director 08/18/24 08/23/24 documented as of this encounter
--- OUTSIDE RECORDS SUMMARY | 2025-02-24 20:51 | XMS_ITS | Encounter Summary ---
Author Organization [place] Address [address] [place] [address] Care Team Providers Care Therapy Site Coordinator Name Role Phone Esperanza Gatica MD Primary Care Provider + Esperanza Gatica MD Unavailable +[phone] Esperanza Gatica MD Unavailable +[phone] Esperanza Gatica MD Unavailable +990 Esperanza Gatica MD Unavailable +593 Esperanza Gatica MD Unavailable +955 Esperanza Gatica MD Unavailable +[phone] Jesús Orourke MD Unavailable Alfreda RayC Primary Care Provider + Alfreda Ray PA-C Unavailable +[phone] Katrin Orellana PA-C Unavailable +[phone] Shanna VangC Unavailable +[phone] Fransisco Eddy MD Unavailable [phone] Esperanza Gatica MD Unavailable +[phone] Esperanza Gatica MD Unavailable +[phone] Katrin Orellana PA-C Unavailable Cristina Hsieh [facility] Unavailable +[phone] Cory Alfreda Liu PA-C Unavailable +[phone] Ho Raymustapha Liu PA-C Unavailable +[phone] Cristina Hsieh [facility] Unavailable +[phone] Dakota Tatum MD Unavailable Unava ilable Dakota Tatum MD Unavailable Unava ilable Srinivas Marie Unavailable +[phone] Brenda Johanne Salome RN Unavailable +[phone] PbLinda Gallito [facility] Unavailable +[phone] Reason for Visit * Reason Onset Date Comments Refill Request 07/31/2013 tramadol Encounter Details Date Type Department Care Team (Late st Contact Info) Description 07/31/2013 MyC Refill [address], [address] [place] [address] [place] [address] [place] [address] Refill Request (tramadol) Social History Tobacco Use Types Packs/Day Years Used Date Smoking Tobacco: Former Cigarettes Q uit: 06/21/1973 Smokeless Tobacco: Former Alcohol Use Standard Drinks/Week Comments Yes 0 (1 standard drink = 0.6 oz pur e alcohol) rarely Comments No Sex and Gender Information Value Date Recorded Sex Assigned at Female 08/17/2018 7:56 AM FILM PROJECTOR OPERATOR Legal Sex Female 4:24 AM FILM PROJECTOR OPERATOR Gender Identity Female 08/17/2018 7:56 AM FILM PROJECTOR OPERATOR Sexual Orientation Straight 08/17/2018 7: 56 AM FILM PROJECTOR OPERATOR documented as of this encounter Miscellaneous Notes * Telephone Encounter - Diane Macedo - 07/31/2013 2:16 PM CST Does not meet standard requirement for RN refill protocol. Medication: tramadol Last OV: 07/14/12 Provider: MD ZAIDA Reason for visit: HTN, CKD, etc... Last refill: 06/22/13 #30 Please refill if appropriate. Thank you! Diane Macedo RN [facility] Work Force PROJECTOR OPERATOR * Telephone Encounter - Diane Macedo - 07/31/2013 2:16 PM CSTMessage from MyChart: Original authorizing provider: MD Alexandria Brannon would like a refill of the following medications: traMADol (ULTRAM) 50 MG tablet [Esperanza Gatica MD] Preferred pharmacy: [id number] Comment: PROJECTOR OPERATOR documented in this encounter Plan of Treatment Upcoming Encounters Date Type Department Care Team (Late st Contact Info) Description 06/28/2025 3:00 PM FILM PROJECTOR OPERATOR Office Visit [facility] [address] [place] [address] Fransisco Eddy MD [address] [place] [address] 687705 documented as of this encounter Visit Diagnoses Diagnosis Knee pain Pain in joint, lower leg documented in this encounter Additional Health Concerns Infection Onset Date Last Indicated Resolved Time Rule Out COVID-19 05/08/2021 05/08/2021 05/09/2021 9:08 PM FILM PROJECTOR OPERATOR documented as of this encounter Care Teams Therapy Site Coordinator Relationship Specialty Start Date End Date Esperanza Gatica MD PCP - General Family Practice 10/13/11 12/29/21 [place] [address] [place] [address] PCP - Assigned PCP 12/05/17 08/23/18 Alfreda Ray PA-C [address] [place] [address] PCP - General Family Medicine 12/30/21 [place] [address] [place] [address] Assigned PCP 12/05/17 09/30/19 [place] [address] [place] [address] Assigned PCP 10/01/19 03/02/20 [place] [address] [place] [address] Assigned PCP 03/03/20 05/25/20 [place] [address] [place] [address] Assigned PCP 05/26/20 09/28/20 [place] [address] [place] [address] Assigned PCP 09/29/20 07/31/22 [place] [address] [place] [address] Assigned Musculoskeletal Provider 10/20/20 04/17/22 Alfreda Ray PA-C [address] [place] [address] Referring Physician Family Medicine 12/31/21 Katrin Orellana PA-C [address] [place] [address] Physician Welding Operator Dermatology 12/31/21 Shanna Vang PA-C [address] [place] [address] Assigned Cancer Care Provider 01/10/22 Fransisco Eddy MD [address] [place] [address] Assigned Rheumatology Provider 05/09/22 [place] [address] [place] [address] Assigned Pain Medication Provider 06/29/22 09/04/22 [place] [address] [place] [address] Assigned PCP 08/15/22 08/28/22 Katrin Orellana PA-C [address] [place] [address] Assigned Surgical Provider 08/15/22 02/10/24 Cristina Hsieh, [facility] [address] [place] [place] [address] [place] [address] Pharmacist Pharmacist 09/07/22 Alfreda Ray PA-C [address] [place] [address] Assigned Pain Medication Provider 09/05/22 09/10/23 Alfreda Ray PA-C [address] [place] [address] Assigned PCP 08/29/22 Cristina Hsieh, [facility] [address] [address] Assigned MTM Pharmacist 09/26/22 Dakota Tatum MD [address] [address] Cardiovascular Disease 03/25/23 Dakota Tatum MD Assigned Heart and Vascular Provider 05/01/23 11/09/24 [place] [address] [place] , [address] [address] Assigned Musculoskeletal Provider 04/12/24 Johanne Gutierrez, RN RN Clinical Product Navigator Primary Care - CC 08/18/24 08/18/24 Linda Ambriz, [facility] Lead Co Chairman 08/18/24 08/23/24 documented as of this encounter
--- OUTSIDE RECORDS SUMMARY | 2025-02-24 20:51 | XMS_ITS | Encounter Summary ---
Author Organization [facility] Address [address] [place] [address] Care Team Providers Care Leasing Specialist Name Role Phone Esperanza Gatica MD Primary Care Provider + Esperanza Gatica MD Unavailable +[phone] Esperanza Gatica MD Unavailable +[phone] Esperanza Gatica MD Unavailable +386 Esperanza Gatica MD Unavailable +039 Esperanza Gatica MD Unavailable +[phone] Esperanza Gatica MD Unavailable +[phone] Jesús Orourke MD Unavailable Alfreda RayC Primary Care Provider + Alfreda Ray PA-C Unavailable +- [phone] Katrin Orellana PA-C Unavailable +[phone] Shanna VangC Unavailable +[phone] Fransisco Eddy MD Unavailable +[phone] Esperanza Gatica MD Unavailable +[phone] Esperanza Gatica MD Unavailable +[phone] Katrin Orellana PA-C Unavailable Cristina Hsieh [facility] Unavailable +[phone] Cory Alfreda Liu PA-C Unavailable +[phone] Cory Alfreda Liu PA-C Unavailable +[phone] Cristina Hsieh [facility] Unavailable +[phone] Dakota Tatum MD Unavailable Unava ilable Dakota Tatum MD Unavailable Unava ilable Srinivas Marie Unavailable +[phone] Johanne Gutierrez Salome RN Unavailable +[phone] Linda Ambriz Gallito [facility] Unavailable +[phone] Reason for Visit * Reason Onset Date Comments Hip Pain 07/08/2012 Hip pain Encounter Details Date Type Department Care Team (Late st Contact Info) Description 07/08/2012 MyC Medical Advice [address], [address] [place] [address] [place] [address] [place], [place] [id number] Hip Pain (Hip pain) Social History Tobacco Use Types Packs/Day Years Used Date Smoking Tobacco: Former Cigarettes Q uit: 06/21/1973 Smokeless Tobacco: Former Alcohol Use Standard Drinks/Week Comments Yes 0 (1 standard drink = 0.6 oz pur e alcohol) rarely Comments No Sex and Gender Information Value Date Recorded Sex Assigned at Female 08/17/2018 7:56 AM RADIATION ONCOLOGY NURSE Legal Sex Female 4:24 AM RADIATION ONCOLOGY NURSE Gender Identity Female 08/17/2018 7:56 AM RADIATION ONCOLOGY NURSE Sexual Orientation Straight 08/17/2018 7: 56 AM RADIATION ONCOLOGY NURSE documented as of this encounter Miscellaneous Notes * Telephone Encounter - Esperanza Gatica MD - 07/08/2012 10:42 AM RADIATION ONCOLOGY NURSE Ok to take flexeril, faxed and she can take the vicodin, which she was given 90 in May. Is she out?Please make appt for hip pain if not improving ATION ONCOLOGY NURSE documented in this encounter Plan of Treatment Upcoming Encounters Date Type Department Care Team (Late st Contact Info) Description 06/28/2025 3:00 PM RADIATION ONCOLOGY NURSE Office Visit [facility] [address] [place] [phone] Fransisco Eddy MD [address] [place] [address] documented as of this encounter Visit Diagnoses Diagnosis Hip pain- Primary Pain in joint, pelvic region and thigh documented in this encounter Additional Health Concerns Infection Onset Date Last Indicated Resolved Time Rule Out COVID-19 05/08/2021 05/08/2021 05/09/2021 9:08 PM RADIATION ONCOLOGY NURSE documented as of this encounter Care Teams Leasing Specialist Relationship Specialty Start Date End Date Esperanza Gatica MD PCP - General Family Practice 10/13/11 12/29/21 [place] [address] [address] [address] PCP - Assigned PCP 12/05/17 08/23/18 Alfreda Ray PA-C [address] [place] [address] PCP - General Family Medicine 12/30/21 [place] [address] [address] [address] Assigned PCP 12/05/17 09/30/19 [place] [address] [address] [address] Assigned PCP 10/01/19 03/02/20 [place] [address] [place] [address] Assigned PCP 03/03/20 05/25/20 [place] [address] [place] [address] Assigned PCP 05/26/20 09/28/20 [place] [address] [place] [address] Assigned PCP 09/29/20 07/31/22 [place] [address] [place] [address] Assigned Musculoskeletal Provider 10/20/20 04/17/22 Alfreda Ray PA-C [address] [place] [address] 901622 Referring Physician Family Medicine 12/31/21 Katrin Orellana PA-C [address] [place] [address] 959535 Physician Edge Stainer Machine Dermatology 12/31/21 Shanna Vang PA-C [address] [place] [address] 201164 Assigned Cancer Care Provider 01/10/22 Fransisco Eddy MD [address] [place] [address] [id number] Assigned Rheumatology Provider 05/09/22 [place] [address] [place] [address] Assigned Pain Medication Provider 06/29/22 09/04/22 [place] [address] [place] [address] Assigned PCP 08/15/22 08/28/22 Katrin Orellana PA-C [address] [place] [address] Assigned Surgical Provider 08/15/22 02/10/24 Cristina Hsieh [facility] [address] [place] [address] Pharmacist Pharmacist 09/07/22 Alfreda Ray PA-C [address] [place] [address] Assigned Pain Medication Provider 09/05/22 09/10/23 Alfreda Ray PA-C [address] [place] [address] 23527 Assigned PCP 08/29/22 Cristina Hsieh [facility] [address] [address] Assigned MTM Pharmacist 09/26/22 Dakota Tatum MD [address] [address] Cardiovascular Disease 03/25/23 Dakota Tatum MD Assigned Heart and Vascular Provider 05/01/23 11/09/24 [place] [address] [address], [address] [address] Assigned Musculoskeletal Provider 04/12/24 Johanne Gutierrez RN RN Clinical Product Navigator Primary Care - CC 08/18/24 08/18/24 Linda Ambriz, [facility] Lead Diamond Sizer And Grader 08/18/24 08/23/24 documented as of this encounter
--- OUTSIDE RECORDS SUMMARY | 2025-02-24 20:51 | XMS_ITS | Patient Health Record ---
Author Organization [facility] Address [address] [place] [address] Care Team Providers Care Natural Sciences Manager Name Role Phone EnChristine delgadillo Primary Care Provider MANFRED Guillermo [phone] Reason For Referral No Information Medications Medication SIG (Take, Route, Frequency, Duration) Notes Start Date End Date Status Shingrix Active Gabapentin Active Simvastatin Active Temazepam Active Atenolol Active Lisinopril-hydroCHLOROthiaz judd Active traZODone HCl Active traMADol HCl Active Celecoxib Active Social History Tobacco Use: Social History Observation Description Date Details (start date - stop date) Former Smoker NA - NA Social History Alcohol Use: Social Info Question Answer Notes Recreational drugs Have you used drugs other than those for medical reasons in the past 12 months? No Alcohol Screen Did you have a drink containing alcohol in the past year? Yes Points 0 Interpretation Negative Tobacco Use: Social Info Question Answer Notes Tobacco use/smoking Are you a former smoker Problems Problem Type SNOMED Code ICD Code Onset Dates Problem Status W/U Status Risk Notes Problem Bilateral tinnitus (2287464191497) Tinnitus of both ears (H93.13) Active confirmed Problem Sensorineural hearing loss, bilateral (526872792) Bilateral sensorineural hearing loss (H90.3) Active confirmed Plan Of Treatment No Information Insurance Providers Payer Name Payer Address Payer Phone Subscriber Number Group Number Insured Name Patient Relationship to Insured Coverage Start Date Coverage End Date [employer] MEDICARE [address] [address] [place], [place] [id number] Alexandria Bradshaw Self - patient is the insured MEDICARE [address] [place] [address] [id number] Alexandria Bradshaw Self - patient is the insured Medical (General) History Medical History History ICD Code Colon Cancer Cataracts Surgical History Surgery Date(Month/Year) Colon Gallbladder Knee
--- OUTSIDE RECORDS SUMMARY | 2025-02-24 20:51 | XMS_ITS | Encounter Summary ---
Author Organization [facility] Address [address] [place] [address] Care Team Providers Care Director Of Research Center Name Role Phone Esperanza Gatica MD Primary Care Provider + Esperanza Gatica MD Unavailable +[phone] Esperanza Gatica MD Unavailable +[phone] Esperanza Gatica MD Unavailable +[phone] Esperanza Gatica MD Unavailable +[phone] Esperanza Gatica MD Unavailable +[phone] Esperanza Gatica MD Unavailable +[phone] Jesús Orourke MD Unavailable Alfreda RayC Primary Care Provider + Alfreda Ray PA-C Unavailable +- [phone] Katrin Orellana PA-C Unavailable [phone] Shanna VangC Unavailable +[phone] Fransisco Eddy MD Unavailable +[phone] Esperanza Gatica MD Unavailable +[phone] Esperanza Gatica MD Unavailable +[phone] Katrin Orellana PA-C Unavailable Cristina Hsieh [facility] Unavailable +[phone] Cory Alfreda Liu PA-C Unavailable +[phone] Ho Raymustapha Liu PA-C Unavailable +[phone] Cristina Hsieh [facility] Unavailable +[phone] Dakota Tatum MD Unavailable Unava ilable Dakota Tatum MD Unavailable Unava ilable Srinivas Marie Unavailable +[phone] Brenda Johanne Salome RN Unavailable +[phone] Linda Ambriz Gallito [facility] Unavailable +[phone] Reason for Visit * Reason Onset Date Comments Medication Question 07/01/2012 Ambien and T razodone Encounter Details Date Type Department Care Team (Late st Contact Info) Description 07/01/2012 MyC Medical Advice [address], [address] [place] [address] [place] [address] [place], [place] [phone] Medication Question (Ambien and Trazodone) Social History Tobacco Use Types Packs/Day Years Used Date Smoking Tobacco: Former Cigarettes Q uit: 06/21/1973 Smokeless Tobacco: Former Alcohol Use Standard Drinks/Week Comments Yes 0 (1 standard drink = 0.6 oz pur e alcohol) rarely Comments No Sex and Gender Information Value Date Recorded Sex Assigned at Female 08/17/2018 7:56 AM SENIOR MICROSTRATEGY DEVELOPER Legal Sex Female 4:24 AM SENIOR MICROSTRATEGY DEVELOPER Gender Identity Female 08/17/2018 7:56 AM SENIOR MICROSTRATEGY DEVELOPER Sexual Orientation Straight 08/17/2018 7: 56 AM SENIOR MICROSTRATEGY DEVELOPER documented as of this encounter Miscellaneous Notes * Telephone Encounter - Esperanza Gatica MD - 07/01/2012 1:43 PM SENIOR MICROSTRATEGY DEVELOPER I recommend she try to stop the ambien 5mg after another week or so, and she can always take 2 of the trazodone while weaning off the ambien. Let us know how she is doing in the next week again. OR MICROSTRATEGY DEVELOPER documented in this encounter Plan of Treatment Upcoming Encounters Date Type Department Care Team (Late st Contact Info) Description 06/28/2025 3:00 PM SENIOR MICROSTRATEGY DEVELOPER Office Visit [facility] [address] [place] [phone] Fransisco Eddy MD [address] [place] [address] documented as of this encounter Visit Diagnoses Not on filedocumented in this encounter Additional Health Concerns Infection Onset Date Last Indicated Resolved Time Rule Out COVID-19 05/08/2021 05/08/2021 05/09/2021 9:08 PM SENIOR MICROSTRATEGY DEVELOPER documented as of this encounter Care Teams Director Of Research Center Relationship Specialty Start Date End Date Esperanza Gatica MD PCP - General Family Practice 10/13/11 12/29/21 [place] [address] [address] [address] PCP - Assigned PCP 12/05/17 08/23/18 Alfreda Ray PA-C [address] [place] [address] PCP - General Family Medicine 12/30/21 [place] [address] [address] [address] Assigned PCP 12/05/17 09/30/19 [place] [address] [address] [address] Assigned PCP 10/01/19 03/02/20 [place] [address] [place] [address] Assigned PCP 03/03/20 05/25/20 [place] [address] [place] [address] Assigned PCP 05/26/20 09/28/20 [place] [address] [place] [address] Assigned PCP 09/29/20 07/31/22 [place] [address] [place] [address] [address] Assigned Musculoskeletal Provider 10/20/20 04/17/22 Alfreda Ray PA-C [address] [place] [address] 261702 Referring Physician Family Medicine 12/31/21 Katrin Orellana PA-C [address] [place] [address] 376395 Physician Professor Of Physical Education Dermatology 12/31/21 Shanna Vang PA-C [address] [place] [address] 286154 Assigned Cancer Care Provider 01/10/22 Fransisco Eddy MD [address] [place] [address] Assigned Rheumatology Provider 05/09/22 [place] [address] [place] [address] Assigned Pain Medication Provider 06/29/22 09/04/22 [place] [address] [place] [address] Assigned PCP 08/15/22 08/28/22 Katrin Orellana PA-C [address] [place] [address] Assigned Surgical Provider 08/15/22 02/10/24 Cristina Hsieh [facility] [address] [facility] [place] [address] Pharmacist Pharmacist 09/07/22 Alfreda Ray PA-C [address] [place] [address] Assigned Pain Medication Provider 09/05/22 09/10/23 Alfreda Ray PA-C [address] [place] [address] Assigned PCP 08/29/22 Cristina Hsieh [facility] [address] [address] Assigned MTM Pharmacist 09/26/22 Dakota Tatum MD [address] [address] Cardiovascular Disease 03/25/23 Dakota Tatum MD Assigned Heart and Vascular Provider 05/01/23 11/09/24 [place] [address] CE[address], [facility] [address] [place] [address] Assigned Musculoskeletal Provider 04/12/24 Johanne Gutierrez RN TIFFANIE Clinical Product Navigator Primary Care - CC 08/18/24 08/18/24 Linda Ambriz, [facility] Lead Derrick Helper 08/18/24 08/23/24 documented as of this encounter
--- OUTSIDE RECORDS SUMMARY | 2025-02-24 20:52 | XMS_ITS | Encounter Summary ---
Author Organization [facility] Address [address] [place] [address] Care Team Providers Care Cephalometric Analyst Name Role Phone Esperanza Gatica MD Primary Care Provider + Esperanza Gatica MD Unavailable +[phone] Esperanza Gatica MD Unavailable +638 Esperanza Gatica MD Unavailable +325 Esperanza Gatica MD Unavailable +801 Esperanza Gatica MD Unavailable +737 Esperanza Gatica MD Unavailable +[phone] Jesús Orourke MD Unavailable Alfreda RayC Primary Care Provider + Alfreda Ray PA-C Unavailable +- [phone] Katrin Orellana PA-C Unavailable +[phone] Shanna VangC Unavailable +[phone] Fransisco Eddy MD Unavailable +[phone] Esperanza Gatica MD Unavailable +[phone] Esperanza Gatica MD Unavailable +[phone] Katrin Orellana PA-C Unavailable Cristina Hsieh [facility] Unavailable +[phone] Cory Alfreda Liu PA-C Unavailable +[phone] Ho Raymustapha Liu PA-C Unavailable +[phone] Cristina Hsieh [facility] Unavailable +[phone] Dakota Tatum MD Unavailable Unava ilable Dakota Tatum MD Unavailable Unava ilable Srinivas Marie Unavailable +[phone] Johanne Gutierrez Salome RN Unavailable [phone] Linda Ambriz Gallito [facility] Unavailable +[phone] Reason for Visit * Reason Onset Date Comments Formulary Issue 11/13/2014 Zolpidem 5mg Encounter Details Date Type Department Care Team (Late st Contact Info) Description 11/13/2014 MyC Medical Advice [address], [address] [place] [address] [place] [address] [place] [address] Formulary Issue (Zolpidem 5mg) Social [...] Sex Assigned at Female 08/17/2018 7:56 AM STAIN MAKER Legal Sex Female 4:24 AM STAIN MAKER Gender Identity Female 08/17/2018 7:56 AM STAIN MAKER Sexual Orientation Straight 08/17/2018 7: 56 AM STAIN MAKER documented as of this encounter Plan of Treatment Upcoming Encounters Date Type Department Care Team (Late st Contact Info) Description 06/28/2025 3:00 PM STAIN MAKER Office Visit [address] [place] [phone] Fransisco Eddy MD [address] [place] [address] documented as of this encounter Visit Diagnoses Not on filedocumented in this encounter Additional Health Concerns Infection Onset Date Last Indicated Resolved Time Rule Out COVID-19 05/08/2021 05/08/2021 05/09/2021 9:08 PM STAIN MAKER documented as of this encounter Care Teams Cephalometric Analyst Relationship Specialty Start Date End Date Esperanza Gatica MD PCP - General Family Practice 10/13/11 12/29/21 [place] [address] [address] [address] PCP - Assigned PCP 12/05/17 08/23/18 Alfreda Ray PA-C [address] [place] [address] PCP - General Family Medicine 12/30/21 [place] [address] [address] [address] Assigned PCP 12/05/17 09/30/19 [place] [address] [address] [address] Assigned PCP 10/01/19 03/02/20 [place] [address] [address] [address] Assigned PCP 03/03/20 05/25/20 [place] [address] [place] [address] Assigned PCP 05/26/20 09/28/20 [place] [address] [place] [address] Assigned PCP 09/29/20 07/31/22 Jesú[place] [address] [place] [address] Assigned Musculoskeletal Provider 10/20/20 04/17/22 Alfreda Ray PA-C [address] [place] [address] 628652 Referring Physician Family Medicine 12/31/21 Katrin Orellana PA-C [address] [place] [address] 486355 Physician Dairy Store Manager Dermatology 12/31/21 Shanna Vang PA-C [address] [place] [address] 673374 Assigned Cancer Care Provider 01/10/22 Fransisco Eddy MD [address] [place] [address] Assigned Rheumatology Provider 05/09/22 [place] [address] [place] [address] Assigned Pain Medication Provider 06/29/22 09/04/22 [place] [address] [place] [address] Assigned PCP 08/15/22 08/28/22 Katrin Orellana PA-C [address] [place] [address] Assigned Surgical Provider 08/15/22 02/10/24 Cristina Hsieh [facility] [address] [facility] [place] [address] Pharmacist Pharmacist 09/07/22 Alfreda Ray PA-C [address] [place] [address] 988382 Assigned Pain Medication Provider 09/05/22 09/10/23 Alfreda Ray PA-C [address] [place] [address] 157802 Assigned PCP 08/29/22 Cristina Hsieh [facility] [address] [address] Assigned MTM Pharmacist 09/26/22 Dakota Tatum MD [address] [address] Cardiovascular Disease 03/25/23 Dakota Tatum MD Assigned Heart and Vascular Provider 05/01/23 11/09/24 [place] [address] [place] , [address] [address] Assigned Musculoskeletal Provider 04/12/24 Johanne Gutierrez, RN RN Clinical Product Navigator Primary Care - CC 08/18/24 08/18/24 Linda Ambriz, [facility] Lead Client Service Associate 08/18/24 08/23/24 documented as of this encounter
--- OUTSIDE RECORDS SUMMARY | 2025-02-24 20:52 | XMS_ITS | Encounter Summary ---
Author Organization [facility] Address [address] [place] [address] Care Team Providers Care Patient Registrar Name Role Phone Esperanza Gatica MD Primary Care Provider + Esperanza Gatica MD Unavailable +[phone] Esperanza Gatica MD Unavailable +[phone] Esperanza Gatica MD Unavailable +251 Esperanza Gatica MD Unavailable +655 Esperanza Gatica MD Unavailable +310 Esperanza Gatica MD Unavailable +[phone] Jesús Orourke MD Unavailable Alfreda RayC Primary Care Provider + Alfreda Ray PA-C Unavailable +- [phone] Katrin Orellana PA-C Unavailable +[phone] Shanna VangC Unavailable +[phone] Fransisco Eddy MD Unavailable +[phone] Esperanza Gatica MD Unavailable +[phone] Esperanza Gatica MD Unavailable +[phone] Katrin Orellana PA-C Unavailable Cristina Hsieh [facility] Unavailable +[phone] Cory Alfreda Liu PA-C Unavailable +[phone] Ho Raymustapha Liu PA-C Unavailable +[phone] Cristina Hsieh [facility] Unavailable +[phone] Dakota Tatum MD Unavailable Unava ilable Dakota Tatum MD Unavailable Unava ilable Srinivas Marie Unavailable +[phone] BrendaJohanne Salome RN Unavailable +[phone] Linda Ambriz Gallito [facility] Unavailable +[phone] Reason for Visit * Reason Onset Date Comments Back Pain 10/20/2013 ortho referral Encounter Details Date Type Department Care Team (Late st Contact Info) Description 10/20/2013 MyC Medical Advice [address], [address] [place] [address] [place] [address] [place], [place] [phone] Back Pain (ortho referral) Social History Tobacco Use Types Packs/Day Years Used Date Smoking Tobacco: Former Cigarettes Q uit: 06/21/1973 Smokeless Tobacco: Former Alcohol Use Standard Drinks/Week Comments Yes 0 (1 standard drink = 0.6 oz pur e alcohol) rarely Comments No Sex and Gender Information Value Date Recorded Sex Assigned at Female 08/17/2018 7:56 AM HOGSHEAD FILLER Legal Sex Female 4:24 AM HOGSHEAD FILLER Gender Identity Female 08/17/2018 7:56 AM HOGSHEAD FILLER Sexual Orientation Straight 08/17/2018 7: 56 AM HOGSHEAD FILLER documented as of this encounter Miscellaneous [...] st Contact Info) Description 06/28/2025 3:00 PM HOGSHEAD FILLER Office Visit [facility] [address] [place] [phone] Fransisco Eddy MD [address] [place] [address] 801165 documented as of this encounter Visit Diagnoses Not on filedocumented in this encounter Additional Health Concerns Infection Onset Date Last Indicated Resolved Time Rule Out COVID-19 05/08/2021 05/08/2021 05/09/2021 9:08 PM HOGSHEAD FILLER documented as of this encounter Care Teams Patient Registrar Relationship Specialty Start Date End Date Esperanza Gatica MD PCP - General Family Practice 10/13/11 12/29/21 [place] [address] [address] [address] PCP - Assigned PCP 12/05/17 08/23/18 Alfreda Ray PA-C [address] [place] [address] PCP - General Family Medicine 12/30/21 [place] [address] [address] [address] Assigned PCP 12/05/17 09/30/19 [place] [address] [address] [address] Assigned PCP 10/01/19 03/02/20 [place] [address] [place] [address] Assigned PCP 03/03/20 05/25/20 [place] [address] [place] [address] Assigned PCP 05/26/20 09/28/20 [place] [address] [place] [address] Assigned PCP 09/29/20 07/31/22 Jesú[place] [address] [facility] [place] [address] Assigned Musculoskeletal Provider 10/20/20 04/17/22 Alfreda Ray PA-C [address] [place] [address] 936822 Referring Physician Family Medicine 12/31/21 Katrin Orellana PA-C [address] [place] [address] 218525 Physician Bread Dumper Dermatology 12/31/21 Shanna Vang PA-C [address] [place] [address] 184024 Assigned Cancer Care Provider 01/10/22 Fransisco Eddy MD [address] [place] [address] 216435 Assigned Rheumatology Provider 05/09/22 [place] [address] [place] [address] Assigned Pain Medication Provider 06/29/22 09/04/22 [place] [address] [place] [address] Assigned PCP 08/15/22 08/28/22 Katrin Orellana PA-C [address] [place] [address] Assigned Surgical Provider 08/15/22 02/10/24 Cristina Hsieh [facility] [address] [place] [address] [place] [address] Pharmacist Pharmacist 09/07/22 Alfreda Ray PA-C [address] [place] [address] Assigned Pain Medication Provider 09/05/22 09/10/23 Alfreda Ray PA-C [address] [place] [address] Assigned PCP 08/29/22 Cristina Hsieh [facility] [address] [id number] Assigned MTM Pharmacist 09/26/22 Dakota Tatum MD [address] [address] Cardiovascular Disease 03/25/23 Dakota Tatum MD Assigned Heart and Vascular Provider 05/01/23 11/09/24 [place] [address] [address], [address] [address] Assigned Musculoskeletal Provider 04/12/24 Johanne Gutierrez RN RN Clinical Product Navigator Primary Care - CC 08/18/24 08/18/24 Linda Ambriz, [facility] Lead Pelt [place] 08/18/24 08/23/24 documented as of this encounter
--- OUTSIDE RECORDS SUMMARY | 2025-02-24 20:52 | XMS_ITS | Encounter Summary ---
Author Organization [place] Address [address] [place] [address] Care Team Providers Care Drill Press Operator Name Role Phone Esperanza Gatica MD Primary Care Provider + Esperanza Gatica MD Unavailable +[phone] Esperanza Gatica MD Unavailable +310 Esperanza Gatica MD Unavailable +091 Esperanza Gatica MD Unavailable +017 Esperanza Gatica MD Unavailable +[phone] Esperanza Gatica MD Unavailable +[phone] Jesús Orourke MD Unavailable Alfreda RayC Primary Care Provider + Alfreda Ray PA-C Unavailable +- [phone] Katrin Orellana PA-C Unavailable +[phone] Shanna VangC Unavailable +[phone] Fransisco Eddy MD Unavailable +[phone] Esperanza Gatica MD Unavailable +[phone] Esperanza Gatica MD Unavailable +[phone] Katrin Orellana PA-C Unavailable +[phone] Cristina Hsieh [facility] Unavailable +[phone] Cory Alfreda Liu PA-C Unavailable +[phone] Ho Raymustapha Liu PA-C Unavailable +[phone] Cristina Hsieh [facility] Unavailable +[phone] Dakota Tatum MD Unavailable Unava ilable Dakota Tatum MD Unavailable Unava ilable Cynthia, Srinivas Unavailable +[phone] Brenda Johanne Salome RN Unavailable [phone] Mariana Ambrizie Gallito [facility] Unavailable +[phone] Reason for Visit * Reason Onset Date Comments Refill Request 10/13/2013 Atenolol 25mg Encounter Details Date Type Department Care Team (Late st Contact Info) Description 10/13/2013 MyC Refill [address], [address] [place] [address] [place] [address], [place] [id number] Refill Request (Atenolol 25mg) Social History Tobacco Use Types Packs/Day Years Used Date Smoking Tobacco: Former Cigarettes Q uit: 06/21/1973 Smokeless Tobacco: Former Alcohol Use Standard Drinks/Week Comments Yes 0 (1 standard drink = 0.6 oz pur e alcohol) rarely Comments No Sex and Gender Information Value Date Recorded Sex Assigned at Female 08/17/2018 7:56 AM BI TECHNICAL LEAD Legal Sex Female 4:24 AM BI TECHNICAL LEAD Gender Identity Female 08/17/2018 7:56 AM BI TECHNICAL LEAD Sexual Orientation Straight 08/17/2018 7: 56 AM BI TECHNICAL LEAD documented as of this encounter Miscellaneous Notes * Telephone Encounter - Leigha Rinaldi RN - 10/16/2013 11:17 AM CDT Last Office Visit R/T Diagnosis: 07/14/2013 BP Readings from Last 3 Encounters: 07/14/13 122/60 11/08/12 112/60 06/23/12 104/60 Medication approved per standing orders. Leigha Rinaldi RN * Telephone Encounter - Leigha Rinaldi RN - 10/16/2013 11:16 AM CDTMessage from [facility]: Original authorizing provider: MD Alexandria Brannon would like a refill of the following medications: atenolol (TENORMIN) 25 MG tablet [Esperanza Gatica MD] Preferred pharmacy: [id number] Comment: I asked for a refill [...] st Contact Info) Description 06/28/2025 3:00 PM BI TECHNICAL LEAD Office Visit [facility] [address] [address] Fransisco Eddy MD [address] [place] [address] 752255 documented as of this encounter Visit Diagnoses Diagnosis HTN (hypertension), benign Essential hypertension, benign documented in this encounter Additional Health Concerns Infection Onset Date Last Indicated Resolved Time Rule Out COVID-19 05/08/2021 05/08/2021 05/09/2021 9:08 PM BI TECHNICAL LEAD documented as of this encounter Care Teams Drill Press Operator Relationship Specialty Start Date End Date Esperanza Gatica MD PCP - General Family Practice 10/13/11 12/29/21 [place] [address] [place] [address] PCP - Assigned PCP 12/05/17 08/23/18 Alfreda Ray PA-C [address] [place] [address] PCP - General Family Medicine 12/30/21 [place] [address] [place] [address] Assigned PCP 12/05/17 09/30/19 [place] [address] [place] [address] Assigned PCP 10/01/19 03/02/20 [place] [address] [place] [address] Assigned PCP 03/03/20 05/25/20 [place] [address] [place] [address] Assigned PCP 05/26/20 09/28/20 [place] [address] [place] [address] Assigned PCP 09/29/20 07/31/22 Jesú[place] [address] [place] [address] Assigned Musculoskeletal Provider 10/20/20 04/17/22 Alfreda Ray PA-C [address] [place] [address] 441982 Referring Physician Family Medicine 12/31/21 Katrin Orellana PA-C [address] [place] [address] [phone] Physician Cable Installation Manager Dermatology 12/31/21 Shanna Vang PA-C [address] [place] [address] 777144 Assigned Cancer Care Provider 01/10/22 Fransisco Eddy MD [address] [place] [address] 576685 Assigned Rheumatology Provider 05/09/22 [place] [address] [place] [address] Assigned Pain Medication Provider 06/29/22 09/04/22 [place] [address] [place] [address] Assigned PCP 08/15/22 08/28/22 Katrin Orellana PA-C [address] [place] [address] 575655 Assigned Surgical Provider 08/15/22 02/10/24 Cristina Hsieh [facility] [address] [facility] [place] [address] Pharmacist Pharmacist 09/07/22 Alfreda Ray PA-C [address] [place] [address] Assigned Pain Medication Provider 09/05/22 09/10/23 Alfreda Ray PA-C [address] [place] [address] Assigned PCP 08/29/22 Cristina Hsieh, [facility] [address] [facility] [address] [place] [address] Assigned MTM Pharmacist 09/26/22 Dakota Tatum MD [address] [address] Cardiovascular Disease 03/25/23 Dakota Tatum MD Assigned Heart and Vascular Provider 05/01/23 11/09/24 [place] [address] [address], [address] [address] Assigned Musculoskeletal Provider 04/12/24 Johanne Gutierrez RN TIFFANIE Clinical Product Navigator Primary Care - CC 08/18/24 08/18/24 Linda Ambriz, [facility] Lead Computer Forensic Examiner 08/18/24 08/23/24 documented as of this encounter
--- OUTSIDE RECORDS SUMMARY | 2025-02-24 20:52 | XMS_ITS | Encounter Summary ---
Author Organization [place] Address [address] [place] [address] Care Team Providers Care Pipe Fitter Helper Name Role Phone Esperanza Gatica MD Primary Care Provider + Esperanza Gatica MD Unavailable +[phone] Esperanza Gatica MD Unavailable +527 Esperanza Gatica MD Unavailable +184 Esperanza Gatica MD Unavailable +[phone] Esperanza Gatica MD Unavailable +[phone] Esperanza Gatica MD Unavailable +[phone] Jesús Orourke MD Unavailable Alfreda RayC Primary Care Provider + Alfreda Ray PA-C Unavailable +- [phone] Katrin Orellana PA-C Unavailable [phone] Shanna VangC Unavailable +[phone] Fransisco Eddy MD Unavailable +[phone] Esperanza Gatica MD Unavailable +[phone] Esperanza Gatica MD Unavailable +[phone] Katrin Orellana PA-C Unavailable Cristina Hsieh [facility] Unavailable +[phone] Cory Alfreda Liu PA-C Unavailable +[phone] Cory Alfreda Liu PA-C Unavailable +[phone] Cristina Hsieh [facility] Unavailable +[phone] Dakota Tatum MD Unavailable Unava ilable Dakota Tatum MD Unavailable Unava ilable Srinivas Marie Unavailable [phone] Brenda Johanne Salome RN Unavailable [phone] Pb [place] Gallito [facility] Unavailable +[phone] Reason for Visit * Reason Onset Date Comments Refill Request 06/03/2014 Tramadol 50mg Encounter Details Date Type Department Care Team (Late st Contact Info) Description 06/03/2014 MyC Refill [address], [address] [place] [address] [place] [address] [place] [address] Refill Request (Tramadol 50mg) Social History Tobacco Use Types Packs/Day Years Used Date Smoking Tobacco: Former Cigarettes Q uit: 06/21/1973 Smokeless Tobacco: Former Alcohol Use Standard Drinks/Week Comments Yes 0 (1 standard drink = 0.6 oz pur e alcohol) rarely Comments No Sex and Gender Information Value Date Recorded Sex Assigned at Female 08/17/2018 7:56 AM MANAGER BUSINESS Legal Sex Female 4:24 AM MANAGER BUSINESS Gender Identity Female 08/17/2018 7:56 AM MANAGER BUSINESS Sexual Orientation Straight 08/17/2018 7: 56 AM MANAGER BUSINESS documented as of this encounter Miscellaneous Notes * Telephone Encounter - Leigha Rinaldi RN - 06/04/2014 1:43 PM CST Pending Prescriptions: Disp Refills traMADol (ULTRAM) 50 MG tablet 30 tab*0 Sig: Take 1 tablet (50 mg) by mouth every 6 hours as needed for pain Last OV: 03/29/2014 Reason: IBS Last filled: 05/07/2014 #30 Leigha Rinaldi RN GER BUSINESS * Telephone Encounter - Leigha Rinaldi RN - 06/04/2014 1:43 PM CSTMessage from MyChart: Original authorizing provider: MD Alexandria Brannon Zenobia Leeann would like a refill of the following medications: traMADol (ULTRAM) 50 MG tablet [Esperanza Gatica MD] Preferred pharmacy: [facility] #[id number] - [address] Comment: GER BUSINESS documented in this encounter Plan of Treatment Upcoming Encounters Date Type Department Care Team (Late st Contact Info) Description 06/28/2025 3:00 PM MANAGER BUSINESS Office Visit [facility] [address] [phone] Fransisco Eddy MD [address] [place] [address] [phone] documented as of this encounter Visit Diagnoses Diagnosis HTN (hypertension), benign Essential hypertension, benign documented in this encounter Additional Health Concerns Infection Onset Date Last Indicated Resolved Time Rule Out COVID-19 05/08/2021 05/08/2021 05/09/2021 9:08 PM MANAGER BUSINESS documented as of this encounter Care Teams Pipe Fitter Helper Relationship Specialty Start Date End Date Esperanza Gatica MD PCP - General Family Practice 10/13/11 12/29/21 [place] [address] [place] [address] PCP - Assigned PCP 12/05/17 08/23/18 Alfreda Ray PA-C [address] [place] [address] PCP - General Family Medicine 12/30/21 [place] [address] [place] GARCIA [address] Assigned PCP 12/05/17 09/30/19 [place] [address] [place] [address] Assigned PCP 10/01/19 03/02/20 [place] [address] [address] [address] Assigned PCP 03/03/20 05/25/20 [place] [address] [address] [place], [place] [address] Assigned PCP 05/26/20 09/28/20 [place] [address] [address] [address] Assigned PCP 09/29/20 07/31/22 [place] [address] [place] [address] Assigned Musculoskeletal Provider 10/20/20 04/17/22 Alfreda Ray PA-C [address] [place] [address] Referring Physician Family Medicine 12/31/21 Katrin Orellana PA-C [address] [place] [address] Physician Olericulture Professor Dermatology 12/31/21 Shanna Vang PA-C [address] [place] [address] Assigned Cancer Care Provider 01/10/22 Fransisco Eddy MD [address] [place] [address] Assigned Rheumatology Provider 05/09/22 [place] [address] [place] [address] Assigned Pain Medication Provider 06/29/22 09/04/22 [place] [address] [address] [facility] [place] [address] Assigned PCP 08/15/22 08/28/22 Katrin Orellana PA-C [address] [place] [address] Assigned Surgical Provider 08/15/22 02/10/24 Cristina Hsieh [facility] [address] [place] [address] [place] [address] Pharmacist Pharmacist 09/07/22 Alfreda Ray PA-C [address] [place] [address] Assigned Pain Medication Provider 09/05/22 09/10/23 Alfreda Ray PA-C [place] [address] Assigned PCP 08/29/22 Cristina Hsieh, [facility] [address] [address] Assigned MTM Pharmacist 09/26/22 Dakota Tatum MD [address] [address] Cardiovascular Disease 03/25/23 Dakota Tatum MD Assigned Heart and Vascular Provider 05/01/23 11/09/24 [place] [address] [address] , [address] [address] Assigned Musculoskeletal Provider 04/12/24 Johanne Gutierrez, RN RN Clinical Product Navigator Primary Care - CC 08/18/24 08/18/24 Linda Ambriz, [facility] Lead Pipe Coverer 08/18/24 08/23/24 documented as of this encounter
--- OUTSIDE RECORDS SUMMARY | 2025-02-24 20:52 | XMS_ITS | Encounter Summary ---
Author Organization [place] Address [address] [place] [address] Care Team Providers Care Insurance Loss Adjuster Name Role Phone Esperanza Gatica MD Primary Care Provider + Esperanza Gatica MD Unavailable + Jesús Orourke MD Unavailable Alfreda Ray-C Primary Care Provider + Alfreda RayC Unavailable +[phone] Katrin Orellana PA-C Unavailable +[phone] Shanna Vang PA-C Unavailable +[phone] Fransisco Eddy MD Unavailable +[phone] Esperanza Gatica MD Unavailable + Esperanza Gatica MD Unavailable +51 Katrin OrellanaC Unavailable +[phone] Cristina Hsieh [facility] Unavailable +[phone] Alfreda Ray PA-C Unavailable +[phone] Alfreda Ray PA-C Unavailable +[phone] Cristina Hsieh [facility] Unavailable +[phone] Dakota Tatum MD Unavailable Unava ilDakota Padgett MD Unavailable Unava ilSrinivas Yun DO Unavailable +[phone] Johanne Gutierrez RN Unavailable [phone] Linda Ambriz [facility] Unavailable [phone] Encounter Details Date Type Department Care Team (Late st Contact Info) Description 04/09/2021 MyC Medical Advice [facility] [address] [place] [address] [place] [address] [place] [address] Social History Tobacco Use Types [...] Assigned at Female 08/17/2018 7:56 AM INSPECTOR SALVAGE Legal Sex Female 4:24 AM INSPECTOR SALVAGE Gender Identity Female 08/17/2018 7:56 AM INSPECTOR SALVAGE Sexual Orientation Straight 08/17/2018 7: 56 AM INSPECTOR SALVAGE COVID-19 Exposure Response Date Recorded In the last month, have you been in contact with someone who was confirmed or suspected to have Coronavirus / COVID-19? No / Unsure 04/02/2021 10:04 AM CDT documented as of this encounter Plan of Treatment Upcoming Encounters Date Type Department Care Team (Late Contact Info) Description 06/28/2025 3:00 PM INSPECTOR SALVAGE Office Visit [facility] [place] [address] [facility] [address] [place] [address] Fransisco Eddy MD [address] [place] [address] documented as of this encounter Visit Diagnoses Not on filedocumented in this encounter Additional Health Concerns Infection Onset Date Last Indicated Resolved Time Rule Out COVID-19 05/08/2021 05/08/2021 05/09/2021 9:08 PM INSPECTOR SALVAGE Assessment Noted Time PHQ-9 Depression Total Score: 0 08/31/19 21 11:22 AM INSPECTOR SALVAGE documented as of this encounter Care Teams Insurance Loss Adjuster Relationship Specialty Start Date End Date Esperanza Gatica MD PCP - General Family Practice 10/13/11 12/29/21 Alfreda Ray PA-C [address] [place] [address] [id number] PCP - General Family Medicine 12/30/21 [place] [address] [place] [address] Assigned PCP 09/29/20 07/31/22 Jesú[place] [address] [address] [facility] [place], [place] 9[address]177 Assigned Musculoskeletal Provider 10/20/20 04/17/22 Alfreda Ray PA-C [address] [place] [address] 926442 Referring Physician Family Medicine 12/31/21 Katrin Orellana PA-C [address] [place] [address] 066755 Physician Service Person Dermatology 12/31/21 Shanna Vang PA-C [address] [place] [address] 326184 Assigned Cancer Care Provider 01/10/22 Fransisco Eddy MD [address] [place] [address] [address] [place] [address] Assigned Rheumatology Provider 05/09/22 [place] [address] [place] [address] Assigned Pain Medication Provider 06/29/22 09/04/22 [place] [address] [place] [address] Assigned PCP 08/15/22 08/28/22 Katrin Orellana PA-C [address] [place] [address] Assigned Surgical Provider 08/15/22 02/10/24 Cristina Hsieh [facility] [address] [facility] [place] [address] Pharmacist Pharmacist 09/07/22 Alfreda Ray PA-C [address] [place] [address] Assigned Pain Medication Provider 09/05/22 09/10/23 Alfreda Ray PA-C [address] [place] [address] Assigned PCP 08/29/22 Cristina Hsieh [facility] [address] [id number] Assigned MTM Pharmacist 09/26/22 Dakota Tatum MD [address] [facility] [place] [address] [place] [address] Cardiovascular Disease 03/25/23 Dakota Tatum MD Assigned Heart and Vascular Provider 05/01/23 11/09/24 [place] [address] [address], [facility] [address] [place] [address] Assigned Musculoskeletal Provider 04/12/24 Johanne Gutierrez RN RN Clinical Product Navigator Primary Care - CC 08/18/24 08/18/24 Linda Ambriz, [facility] Lead Hemotherapist 08/18/24 08/23/24 documented as of this encounter
--- OUTSIDE RECORDS SUMMARY | 2025-02-24 20:52 | XMS_ITS | Encounter Summary ---
Author Organization [place] Address [address] [place] [address] Care Team Providers Care Patient Services Specialist Name Role Phone Esperanza Gatica MD Primary Care Provider + Esperanza Gatica MD Unavailable +[phone] Esperanza Gatica MD Unavailable +[phone] Esperanza Gatica MD Unavailable +893 Esperanza Gatica MD Unavailable +645 Esperanza Gatica MD Unavailable +[phone] Esperanza Gatica MD Unavailable +[phone] Jesús Orourke MD Unavailable Alfreda RayC Primary Care Provider + Alfreda Ray PA-C Unavailable +- [phone] Katrin Orellana PA-C Unavailable [phone] Shanna VangC Unavailable +[phone] Fransisco Eddy MD Unavailable +[phone] Esperanza Gatica MD Unavailable +[phone] Esperanza Gatica MD Unavailable +[phone] Katrin Orellana PA-C Unavailable Cristina Hsieh [facility] Unavailable +[phone] Cory Alfreda Liu PA-C Unavailable +[phone] Ho Raymustapha Liu PA-C Unavailable +[phone] Cristina Hsieh [facility] Unavailable +[phone] Dakota Tatum MD Unavailable Unava ilable Dakota Tatum MD Unavailable Unava ilable Cynthia Srinivas Unavailable [phone] Brenda Johanne Salome RN Unavailable [phone] Mariana Ambrizie Gallito [employer] Unavailable [phone] Encounter Details Date Type Department Care Team (Late st Contact Info) Description 06/29/2014 MyC Medical Advice [address], [facility] [address] [place] [address] Fartun Silveira Social History Tobacco Use Types Packs/Day Years Used Date Smoking Tobacco: Former Cigarettes Q uit: 06/21/1973 Smokeless Tobacco: Former Alcohol Use Standard Drinks/Week Comments Yes 0 (1 standard drink = 0.6 oz pur e alcohol) rarely Comments No Sex and Gender Information Value Date Recorded Sex Assigned at Female 08/17/2018 7:56 AM TEXTILE STYLIST Legal Sex Female 4:24 AM TEXTILE STYLIST Gender Identity Female 08/17/2018 7:56 AM TEXTILE STYLIST Sexual Orientation Straight 08/17/2018 7: 56 AM TEXTILE STYLIST documented as of this encounter Plan of Treatment Upcoming Encounters Date Type Department Care Team (Late st Contact Info) Description 06/28/2025 3:00 PM TEXTILE STYLIST Office Visit [facility] [address] [address] Fransisco Eddy MD [address] [place] [address] documented as of this encounter Visit Diagnoses Not on filedocumented in this encounter Additional Health Concerns Infection Onset Date Last Indicated Resolved Time Rule Out COVID-19 05/08/2021 05/08/2021 05/09/2021 9:08 PM TEXTILE STYLIST documented as of this encounter Care Teams Patient Services Specialist Relationship Specialty Start Date End Date Esperanza Gatica MD PCP - General Family Practice 10/13/11 12/29/21 [place] [address] [address] [address] PCP - Assigned PCP 12/05/17 08/23/18 Alfreda Ray PA-C [address] [place] [address] PCP - General Family Medicine 12/30/21 [place] [address] [address]ARCIA [address] Assigned PCP 12/05/17 09/30/19 [place] [address] [address] [place]IA [address] Assigned PCP 10/01/19 03/02/20 [place] [address] [address] [address] Assigned PCP 03/03/20 05/25/20 [place] [address] [address] [address] Assigned PCP 05/26/20 09/28/20 [place] [address] [address] [place]ARCIA [address] Assigned PCP 09/29/20 07/31/22 Jesú[place] [address] [place] [address] Assigned Musculoskeletal Provider 10/20/20 04/17/22 Alfreda Ray PA-C [address] [place] [address] Referring Physician Family Medicine 12/31/21 Katrin Orellana PA-C [address] [place] [address] Physician Preschool Paraprofessional Dermatology 12/31/21 Shanna Vang PA-C [address] [place] [address] Assigned Cancer Care Provider 01/10/22 Fransisco Eddy MD [address] [place] [address] Assigned Rheumatology Provider 05/09/22 [place] [address] [address] [address] Assigned Pain Medication Provider 06/29/22 09/04/22 [place] [address] [address] [address] Assigned PCP 08/15/22 08/28/22 Katrin Orellana PA-C [address] [place] [address] Assigned Surgical Provider 08/15/22 02/10/24 Cristina Hsieh [facility] [address] [facility] [place]ETH HERNANDEZ [address] Pharmacist Pharmacist 09/07/22 Alfreda Ray PA-C [address] [place] [address] Assigned Pain Medication Provider 09/05/22 09/10/23 Alfreda Ray PA-C [address] [place] [address] 908712 Assigned PCP 08/29/22 Cristina Hsieh [facility] [address] [address] Assigned MTM Pharmacist 09/26/22 Dakota Tatum MD [address] [address] Cardiovascular Disease 03/25/23 Dakota Tatum MD Assigned Heart and Vascular Provider 05/01/23 11/09/24 [place] [address] [address] , [address] [address] Assigned Musculoskeletal Provider 04/12/24 Johanne Gutierrez, RN RN Clinical Product Navigator Primary Care - CC 08/18/24 08/18/24 Linda Ambriz, [facility] Lead City Secretary 08/18/24 08/23/24 documented as of this encounter
--- OUTSIDE RECORDS SUMMARY | 2025-02-24 20:52 | XMS_ITS | Encounter Summary ---
Author Organization [place] Address [address] [place] [address] Care Team Providers Care Landscaping And Groundskeeping Laborer Name Role Phone Esperanza Gatica MD Primary Care Provider + Esperanza Gatica MD Unavailable +[phone] Esperanza Gatica MD Unavailable +558 Esperanza Gatica MD Unavailable +[phone] Esperanza Gatica MD Unavailable +701 Esperanza Gatica MD Unavailable +[phone] Esperanza Gatica MD Unavailable +[phone] Jesús Orourke MD Unavailable Alfreda RayC Primary Care Provider + Alfreda Ray PA-C Unavailable +- [phone] Katrin Orellana PA-C Unavailable +[phone] Shanna VangC Unavailable +[phone] Fransisco Eddy MD Unavailable +[phone] Esperanza Gatica MD Unavailable +[phone] Esperanza Gatica MD Unavailable +[phone] Katrin Orellana PA-C Unavailable Cristina Hsieh [facility] Unavailable +[phone] Alfreda Ray Alexa KING Unavailable +[phone] Alfreda Ray Alexa KING Unavailable +[phone] Cristina Hsieh [facility] Unavailable +[phone] Dakota Tatum MD Unavailable Unava ilable Dakota Tatum MD Unavailable Unava ilable Srinivas Marie DO Unavailable +[phone] Johanne Gutierrez Salome RN Unavailable +[phone] Linda Ambriz [facility] Unavailable +[phone] Reason for Visit * Reason Onset Date Comments Refill Request 10/28/2012 Bryant Bazzi Encounter Details Date Type Department Care Team (Late st Contact Info) Description 10/28/2012 MyC Refill [address], [address] [place] [address] [place] [address] [place], [place] [phone] Refill Request (Brandee Bazzi) Social History Tobacco Use Types Packs/Day Years Used Date Smoking Tobacco: Former Cigarettes Q uit: 06/21/1973 Smokeless Tobacco: Former Alcohol Use Standard Drinks/Week Comments Yes 0 (1 standard drink = 0.6 oz pur e alcohol) rarely Comments No Sex and Gender Information Value Date Recorded Sex Assigned at Female 08/17/2018 7:56 AM MERCHANT BANKER Legal Sex Female 4:24 AM MERCHANT BANKER Gender Identity Female 08/17/2018 7:56 AM MERCHANT BANKER Sexual Orientation Straight 08/17/2018 7: 56 AM MERCHANT BANKER documented as of this encounter Miscellaneous Notes * Telephone Encounter - Leigha Rinaldi - 10/28/2012 11:27 AM CDT MigdaliaNortisvictoria message sent to patient. Leigha Rinaldi RN [...] Rinaldi - 10/28/2012 10:36 AM CDTMessage from MyChart: Original authorizing provider: MD Alexandria Brannon would like a refill of the following medications: HYDROcodone-acetaminophen (VICODIN) 5-500 MG per tablet [Esperanza Gatica MD] Preferred pharmacy: [facility] [address] [place] [address] Comment: Medication renewals requested in this message routed to other providers: traMADol (ULTRAM) 50 MG tablet [Royer Brumfield MD, MD] documented in this encounter Plan of Treatment Upcoming Encounters Date Type Department Care Team (Late st Contact Info) Description 06/28/2025 3:00 PM MERCHANT BANKER Office Visit [facility] [address] [address] Fransisco Eddy MD [address] [place] [address] documented as of this encounter Visit Diagnoses Diagnosis Osteoarthritis- Primary Osteoarthrosis, unspecified whether generalized or localized, unspecified site Knee pain Pain in joint, lower leg documented in this encounter Additional Health Concerns Infection Onset Date Last Indicated Resolved Time Rule Out COVID-19 05/08/202105/0805/08/2021 05/09/2021 9:08 PM MERCHANT BANKER documented as of this encounter Care Teams Landscaping And Groundskeeping Laborer Relationship Specialty Start Date End Date Esperanza Gatica MD PCP - General Family Practice 10/13/11 12/29/21 [place] [address] [place]ARCIA [address] PCP - Assigned PCP 12/05/17 08/23/18 Alfreda Ray PA-C [address] [place] [address] PCP - General Family Medicine 12/30/21 [place] [address] [place] [address] Assigned PCP 12/05/17 09/30/19 [place] [address] [place] [address] Assigned PCP 10/01/19 03/02/20 [place] [address] [place] [address] Assigned PCP 03/03/20 05/25/20 [place] [address] [place] GARCIA [address] Assigned PCP 05/26/20 09/28/20 [place] [address] [place] [address] Assigned PCP 09/29/20 07/31/22 [place] [address] [place] [address] [address] Assigned Musculoskeletal Provider 10/20/20 04/17/22 Alfreda Ray PA-C [address] [place] [address] 479872 Referring Physician Family Medicine 12/31/21 Katrin Orellana PA-C [address] [place] [address] Physician Manager Database Dermatology 12/31/21 Shanna Vang PA-C [address] [place] [address] Assigned Cancer Care Provider 01/10/22 Fransisco Eddy MD [address] [place] [address] Assigned Rheumatology Provider 05/09/22 [place] [address] [place] [address] Assigned Pain Medication Provider 06/29/22 09/04/22 [place] [address] [place] [address] Assigned PCP 08/15/22 08/28/22 Katrin Orellana PA-C [address] [place] [address] Assigned Surgical Provider 08/15/22 02/10/24 Cristina Hsieh [facility] [address] [facility] [place]DEZ [address] Pharmacist Pharmacist 09/07/22 Alfreda Ray PA-C [address] [place] [address] Assigned Pain Medication Provider 09/05/22 09/10/23 Alfreda Ray PA-C [address] [place] [address] 896662 Assigned PCP 08/29/22 Cristina Hsieh [facility] [address] [address] Assigned MTM Pharmacist 09/26/22 Dakota Tatum MD [address] [address] Cardiovascular Disease 03/25/23 Dakota Tatum MD Assigned Heart and Vascular Provider 05/01/23 11/09/24 [place] [address] [place] , [address] [address] Assigned Musculoskeletal Provider 04/12/24 Johanne Gutierrez, RN RN Clinical Product Navigator Primary Care - CC 08/18/24 08/18/24 Linda Ambriz, [facility] Lead Curriculum Advisory Teacher 08/18/24 08/23/24 documented as of this encounter
--- OUTSIDE RECORDS SUMMARY | 2025-02-24 20:52 | XMS_ITS | Encounter Summary ---
Author Organization [place] Address [address] [place] [address] Care Team Providers Care Database Programmer Name Role Phone Esperanza Gatica MD Primary Care Provider + Esperanza Gatica MD Unavailable + Esperanza Gatica MD Unavailable + Jesús Orourke MD Unavailable Alfreda RayC Primary Care Provider + Alfreda Ray-C Unavailable +260 Katrin Orellana PA-C Unavailable +[phone] Shanna Vang PA-C Unavailable +[phone] Fransisco Eddy MD Unavailable +[phone] Esperanza Gatica MD Unavailable + Esperanza Gatica MD Unavailable + Katrin OrellanaC Unavailable +[phone] Cristina Hsieh [facility] Unavailable +- [phone] Alfreda Ray PA-C Unavailable +[phone] Alfreda Ray PA-C Unavailable +[phone] Cristina Hsieh [facility] Unavailable +[phone] Dakota Ttaum MD Unavailable Unava ilable Dakota Tatum MD Unavailable Unava ilable CynthiaSrinivas DO Unavailable +[phone] Johanne Gutierrez RN Unavailable +[phone] Pb Linda Gallito REGIONAL SALES TRAINER Unavailable [phone] Encounter Details Date Type Department Care Team (Late Contact Info) Description 08/18/2020 MyC Medical Advice [facility] [address] [place] [address] [place] [address] [place] [address] Primary osteoarthritis involving multiple joints [...] Sex Assigned at Female 08/17/2018 7:56 AM AUTOMOBILE CONTRACT CLERK Legal Sex Female 4:24 AM AUTOMOBILE CONTRACT CLERK Gender Identity Female 08/17/2018 7:56 AM AUTOMOBILE CONTRACT CLERK Sexual Orientation Straight 08/17/2018 7: 56 AM AUTOMOBILE CONTRACT CLERK documented as of this encounter Plan of Treatment Upcoming Encounters Date Type Department Care Team (Late st Contact Info) Description 06/28/2025 3:00 PM AUTOMOBILE CONTRACT CLERK Office Visit [facility] [address] [place] [address] Fransisco Eddy MD [address] [place] [address] documented as of this encounter Visit Diagnoses Diagnosis Primary osteoarthritis involving multiple joints documented in this encounter Additional Health Concerns Infection Onset Date Last Indicated Resolved Time Rule Out COVID-19 05/08/2021 05/08/2021 05/09/2021 9:08 PM AUTOMOBILE CONTRACT CLERK Assessment Noted Time PHQ-9 Depression Total Score: 1 08/20/19 19 1:44 PM AUTOMOBILE CONTRACT CLERK documented as of this encounter Care Teams Database Programmer Relationship Specialty Start Date End Date Esperanza Gatica MD PCP - General Family Practice 10/13/11 12/29/21 Alfreda Ray PA-C [address] [place] [address] PCP - General Family Medicine 12/30/21 [place] [address] [facility] [place] [address] Assigned PCP 05/26/20 09/28/20 [place] [address] [facility] [place] [address] Assigned PCP 09/29/20 07/31/22 [place] [address] [address] Assigned Musculoskeletal Provider 10/20/20 04/17/22 Alfreda Ray PA-C [address] [place] [address] Referring Physician Family Medicine 12/31/21 Katrin Orellana PA-C [address] [place] [address] Physician Manager Long Term Care Dermatology 12/31/21 Shanna Vang PA-C [address] [place] [address], [place] [address] Assigned Cancer Care Provider 01/10/22 Fransisco Eddy MD [address] [place] [address] 88 [place] [address] Assigned Rheumatology Provider 05/09/22 [place] [address] [facility] [place] [address] Assigned Pain Medication Provider 06/29/22 09/04/22 [place] [address] [facility] [place] [address] Assigned PCP 08/15/22 08/28/22 Katrin Orellana PA-C [address] [place] [address] Assigned Surgical Provider 08/15/22 02/10/24 [place] [address] [place] [address] [place] [address] Pharmacist Pharmacist 09/07/22 Alfreda Ray PA-C [address] [place] [address] Assigned Pain Medication Provider 09/05/22 09/10/23 Alfreda Ray PA-C [address] [place] [address] Assigned PCP 08/29/22 Cristina Hsieh [facility] [address] [address] Assigned MTM Pharmacist 09/26/22 Dakota Tatum MD [address] [address] Cardiovascular Disease 03/25/23 Dakota Tatum MD Assigned Heart and Vascular Provider 05/01/23 11/09/24 [place] [address] [place] , [address] [address] Assigned Musculoskeletal Provider 04/12/24 Johanne Gutierrez RN RN Clinical Product Navigator Primary Care - CC 08/18/24 08/18/24 Linda Ambriz, [facility] Lead Baggagemaster 08/18/24 08/23/24 documented as of this encounter
--- OUTSIDE RECORDS SUMMARY | 2025-02-24 20:52 | XMS_ITS | Encounter Summary ---
Author Organization [place] Address [address] [place] [address] Care Team Providers Care Contract Designer Name Role Phone Esperanza Gatica MD Primary Care Provider + Esperanza Gatica MD Unavailable +[phone] Esperanza Gatica MD Unavailable +785 Esperanza Gatica MD Unavailable +802 Esperanza Gatica MD Unavailable +501 Esperanza Gatica MD Unavailable +[phone] Esperanza Gatica MD Unavailable +[phone] Jesús Orourke MD Unavailable Alfreda RayC Primary Care Provider + Alfreda Ray PA-C Unavailable +- [phone] Katrin Orellana PA-C Unavailable +[phone] Shanna VangC Unavailable +[phone] Fransisco Eddy MD Unavailable +[phone] Esperanza Gatica MD Unavailable +[phone] Esperanza Gatica MD Unavailable +[phone] Katrin Orellana PA-C Unavailable Cristina Hsieh [facility] Unavailable +[phone] Cory Alfreda Liu PA-C Unavailable +[phone] Ho Raymustapha Liu PA-C Unavailable +[phone] Cristina Hsieh [facility] Unavailable +[phone] Dakota Tatum MD Unavailable Unava ilable Dakota Tatum MD Unavailable Unava ilable Srinivas Marie Unavailable +[phone] Brenda Johanne Salome MORENO Unavailable [phone] Linda Ambriz Gallito [facility] Unavailable +[phone] Reason for Visit * Reason Onset Date Comments Refill Request 11/08/2013 Tramadol 50mg Encounter Details Date Type Department Care Team (Late st Contact Info) Description 11/08/2013 MyC Refill [address], [address] [place] [address] [place] [address] [place] [address] Refill Request (Tramadol 50mg) Social History Tobacco Use Types Packs/Day Years Used Date Smoking Tobacco: Former Cigarettes Q uit: 06/21/1973 Smokeless Tobacco: Former Alcohol Use Standard Drinks/Week Comments Yes 0 (1 standard drink = 0.6 oz pur e alcohol) rarely Comments No Sex and Gender Information Value Date Recorded Sex Assigned at Female 08/17/2018 7:56 AM PHYSICIAN CREDENTIALING SPECIALIST Legal Sex Female 4:24 AM PHYSICIAN CREDENTIALING SPECIALIST Gender Identity Female 08/17/2018 7:56 AM PHYSICIAN CREDENTIALING SPECIALIST Sexual Orientation Straight 08/17/2018 7: 56 AM PHYSICIAN CREDENTIALING SPECIALIST documented as of this encounter Miscellaneous Notes * Telephone Encounter - Leihga Rinaldi RN - 11/08/2013 7:49 AM CDT Med: Tramadol 50mg Last OV: 10/24/2013 Reason: SI joint pain Last filled: 10/10/2013 #30 Leigha Rinaldi RN * Telephone Encounter - Leigha Rinaldi RN - 11/08/2013 7:49 AM [facility] Original authorizing provider: MD Alexandria Brannon would like a refill of the following medications: traMADol (ULTRAM) 50 MG tablet [Esperanza Gatica MD] Preferred pharmacy: [facility] [address] [place] [address] Comment: documented in this encounter Plan of Treatment Upcoming Encounters Date Type Department Care Team (Late st Contact Info) Description 06/28/2025 3:00 PM PHYSICIAN CREDENTIALING SPECIALIST Office Visit [facility]ty [address] [address] Fransisco Eddy MD [address] [place] [address] [id number] documented as of this encounter Visit Diagnoses Diagnosis HTN (hypertension), benign Essential hypertension, benign documented in this encounter Additional Health Concerns Infection Onset Date Last Indicated Resolved Time Rule Out COVID-19 05/08/2021 05/08/2021 05/09/2021 9:08 PM PHYSICIAN CREDENTIALING SPECIALIST documented as of this encounter Care Teams Contract Designer Relationship Specialty Start Date End Date Esperanza Gatica MD PCP - General Family Practice 10/13/11 12/29/21 [place] [address] [place] [address] PCP - Assigned PCP 12/05/17 08/23/18 Alfreda Ray PA-C [address] [place] [address] PCP - General Family Medicine 12/30/21 [place] [address] [place] [address] Assigned PCP 12/05/17 09/30/19 [place] [address] [place] [address] Assigned PCP 10/01/19 03/02/20 [place] [address] [place] [address] Assigned PCP 03/03/20 05/25/20 [place] [address] [place]ARC[place] [address] Assigned PCP 05/26/20 09/28/20 [place] [address] [place] [address] Assigned PCP 09/29/20 07/31/22 [place] [address] [place] [address] Assigned Musculoskeletal Provider 10/20/20 04/17/22 Alfreda Ray PA-C [address] [place] [address] 762092 Referring Physician Family Medicine 12/31/21 Katrin Orellana PA-C [address] [place] [address] Physician Textile Designs Sales Representative Dermatology 12/31/21 Shanna Vang PA-C [address] [place] [address] 043224 Assigned Cancer Care Provider 01/10/22 Fransisco Eddy MD [address] [place] [address] 449385 Assigned Rheumatology Provider 05/09/22 [place] [address] [place] [address] Assigned Pain Medication Provider 06/29/22 09/04/22 [place] [address] [place] [address] Assigned PCP 08/15/22 08/28/22 Katrin Orellana PA-C [address] [place] [address] Assigned Surgical Provider 08/15/22 02/10/24 Cristina Hsieh, [facility] [address] [place] [address] L[place]NANDEZ [address] Pharmacist Pharmacist 09/07/22 Alfreda Ray PA-C [address] [place] [address] 215052 Assigned Pain Medication Provider 09/05/22 09/10/23 Alfreda Ray PA-C [address] [place] [address] 792312 Assigned PCP 08/29/22 Cristina Hsieh, [facility] [address] [address] Assigned MTM Pharmacist 09/26/22 Dakota Tatum MD [address] [address] Cardiovascular Disease 03/25/23 Dakota Tatum MD Assigned Heart and Vascular Provider 05/01/23 11/09/24 [place] [address] [address] Assigned Musculoskeletal Provider 04/12/24 Johanne Gutierrez RN TIFFANIE Clinical Product Navigator Primary Care - CC 08/18/24 08/18/24 Linda Ambriz, [facility] Lead Sustainability Coordinator 08/18/24 08/23/24 documented as of this encounter
--- OUTSIDE RECORDS SUMMARY | 2025-02-24 20:52 | XMS_ITS | Encounter Summary ---
Author Organization [place] Address [address] [place] [address] Care Team Providers Care Plant Clerk Name Role Phone Esperanza Gatica MD Primary Care Provider + Esperanza Gatica MD Unavailable +[phone] Esperanza Gatica MD Unavailable +[phone] Esperanza Gatica MD Unavailable +683 Esperanza Gatica MD Unavailable +309 Esperanza Gatica MD Unavailable +271 Esperanza Gatica MD Unavailable +[phone] Jesús Orourke MD Unavailable Alfreda RayC Primary Care Provider + Alfreda Ray PA-C Unavailable +- [phone] Katrin Orellana PA-C Unavailable +[phone] Shanna VangC Unavailable +[phone] Fransisco Eddy MD Unavailable +[phone] Esperanza Gatica MD Unavailable +[phone] Esperanza Gatica MD Unavailable +[phone] Katrin Orellana PA-C Unavailable Cristina Hsieh [facility] Unavailable +[phone] Cory Alfreda Liu PA-C Unavailable +[phone] Cory Alfreda Liu PA-C Unavailable +[phone] Cristina Hsieh [facility] Unavailable +[phone] Dakota Tatum MD Unavailable Unava ilable Dakota Tatum MD Unavailable Unava ilable CynthiaSrinivas Unavailable +[phone] Brenda Johanne Salome RN Unavailable [phone] Linda Ambriz [facility] Unavailable +[phone] Reason for Visit * Reason Onset Date Comments Refill Request 03/03/2014 Tramadol, Trazod one Encounter Details Date Type Department Care Team (Late st Contact Info) Description 03/03/2014 MyC Refill [address], [address] [place] [address] [place] [address] [place] [address] Refill Request (Tramadol, Trazodone) Social History Tobacco Use Types Packs/Day Years Used Date Smoking Tobacco: Former Cigarettes Q uit: 06/21/1973 Smokeless Tobacco: Former Alcohol Use Standard Drinks/Week Comments Yes 0 (1 standard drink = 0.6 oz pur e alcohol) rarely Comments No Sex and Gender Information Value Date Recorded Sex Assigned at Female 08/17/2018 7:56 AM MANAGER EMPLOYEE RELATIONS Legal Sex Female 4:24 AM MANAGER EMPLOYEE RELATIONS Gender Identity Female 08/17/2018 7:56 AM MANAGER EMPLOYEE RELATIONS Sexual Orientation Straight 08/17/2018 7: 56 AM MANAGER EMPLOYEE RELATIONS documented as of this encounter Miscellaneous Notes * Telephone Encounter - Leigha Rinaldi RN - 03/05/2014 7:54 AM CDT Pending [...] RN - 03/05/2014 7:53 AM CDTMessage [facility]: Original authorizing provider: MD Alexandria Triplett would like a refill of the following medications: traMADol (ULTRAM) 50 MG tablet [Royer Brumfield MD] Preferred pharmacy: [facility] [id number] Comment: Medication renewals requested in this message routed to other providers: traZODone (DESYREL) 50 MG tablet [Esperanza Gatica MD] documented in this encounter Plan of Treatment Upcoming Encounters Date Type Department Care Team (Late st Contact Info) Description 06/28/2025 3:00 PM MANAGER EMPLOYEE RELATIONS Office Visit [facility] Specialty [address] [address] Fransisco Eddy MD [address] [place] [address] 770295 documented as of this encounter Visit Diagnoses Diagnosis HTN (hypertension), benign Essential hypertension, benign Insomnia, unspecified documented in this encounter Additional Health Concerns Infection Onset Date Last Indicated Resolved Time Rule Out COVID-19 05/08/2021 05/08/2021 05/09/2021 9:08 PM MANAGER EMPLOYEE RELATIONS documented as of this encounter Care Teams Plant Clerk Relationship Specialty Start Date End Date Esperanza Gatica MD PCP - General Family Practice 10/13/11 12/29/21 [place] [address] [place] [address] PCP - Assigned PCP 12/05/17 08/23/18 Alfreda Ray PA-C [address] [place] [address] PCP - General Family Medicine 12/30/21 [place] [address] [place] [address] Assigned PCP 12/05/17 09/30/19 [place] [address] [place] [address] Assigned PCP 10/01/19 03/02/20 [place] [address] [place] [address] Assigned PCP 03/03/20 05/25/20 [place] [address] [place] [address] Assigned PCP 05/26/20 09/28/20 [place] [address] [place] [address] Assigned PCP 09/29/20 07/31/22 [place] [address] [place], [place] [address] Assigned Musculoskeletal Provider 10/20/20 04/17/22 Alfreda Ray PA-C [address] [place] [address] 728812 Referring Physician Family Medicine 12/31/21 Katrin Orellana PA-C [address] 339385 Physician Pig Iron Loader Dermatology 12/31/21 Shanna Vang PA-C [facility] [address] [address] Assigned Cancer Care Provider 01/10/22 Fransisco Eddy MD [address] [place] [address] 314265 Assigned Rheumatology Provider 05/09/22 [place] [address] [place] [address] Assigned Pain Medication Provider 06/29/22 09/04/22 [place] [address] [place] [address] Assigned PCP 08/15/22 08/28/22 Katrin Orellana PA-C [address] [place] [address] 764795 Assigned Surgical Provider 08/15/22 02/10/24 Cristina Hsieh, [facility] [address] [facility] [place]Z [address] Pharmacist Pharmacist 09/07/22 Alfreda Ray PA-C [address] [place] [address] Assigned Pain Medication Provider 09/05/22 09/10/23 Alfreda Ray PA-C [address] [place] [address] Assigned PCP 08/29/22 Cristina Hsihe, [facility] [address] [facility] [address] [place] [address] Assigned MTM Pharmacist 09/26/22 Dakota Tatum MD [address] [address] Cardiovascular Disease 03/25/23 Dakota Tatum MD Assigned Heart and Vascular Provider 05/01/23 11/09/24 [place] [address] [facility], [address] [address] Assigned Musculoskeletal Provider 04/12/24 Johanne Gutierrez RN RN Clinical Product Navigator Primary Care - CC 08/18/24 08/18/24 Linda Ambriz, [facility] Lead Superintendent Plant 08/18/24 08/23/24 documented as of this encounter
--- OUTSIDE RECORDS SUMMARY | 2025-02-24 20:52 | XMS_ITS | Encounter Summary ---
Author Organization [place] Address [address] [place] [address] Care Team Providers Care Physician Coder Name Role Phone Esperanza Gatica MD Primary Care Provider + Esperanza Gatica MD Unavailable +[phone] Esperanza Gatica MD Unavailable +[phone] Esperanza Gatica MD Unavailable +[phone] Esperanza Gatica MD Unavailable +[phone] Esperanza Gatica MD Unavailable +[phone] Esperanza Gatica MD Unavailable +[phone] Jesús Orourke MD Unavailable Alfreda RayC Primary Care Provider + Alfreda Ray PA-C Unavailable +- [phone] Katrin Orellana PA-C Unavailable +[phone] Shanna VangC Unavailable +[phone] Fransisco Eddy MD Unavailable +[phone] Esperanza Gatica MD Unavailable +[phone] Esperanza Gatica MD Unavailable +[phone] Katrin Orellana PA-C Unavailable [phone] Cristina Hsieh [facility] Unavailable +[phone] Cory Alfreda Liu PA-C Unavailable +[phone] Cory Alfreda Liu PA-C Unavailable +[phone] Cristina Hsieh [facility] Unavailable +[phone] Dakota Tatum MD Unavailable Unava ilable Dakota Tatum MD Unavailable Unava ilable Srinivas Marie Unavailable [phone] Brenda Johanne Salome RN Unavailable [phone] Linda Ambriz Gallito [facility] Unavailable +[phone] Reason for Visit * Reason Onset Date Comments Refill Request 06/17/2014 Celebrex, Lisino pril/HCTZ Encounter Details Date Type Department Care Team (Late st Contact Info) Description 06/17/2014 MyC Medical Advice [address], [address] [place] [address] [place] [address] [place] [address] Refill Request (Celebrex, Lisinopril/HCTZ) Social History Tobacco Use Types Packs/Day Years Used Date Smoking Tobacco: Former Cigarettes Q uit: 06/21/1973 Smokeless Tobacco: Former Alcohol Use Standard Drinks/Week Comments Yes 0 (1 standard drink = 0.6 oz pur e alcohol) rarely Comments No Sex and Gender Information Value Date Recorded Sex Assigned at Female 08/17/2018 7:56 AM ANGER CONTROL COUNSELOR Legal Sex Female 4:24 AM ANGER CONTROL COUNSELOR Gender Identity Female 08/17/2018 7:56 AM ANGER CONTROL COUNSELOR Sexual Orientation Straight 08/17/2018 7: 56 AM ANGER CONTROL COUNSELOR documented as of this encounter Miscellaneous [...] Will route to provider. Leigha Rinaldi RN R CONTROL COUNSELOR documented in this encounter Plan of Treatment Upcoming Encounters Date Type Department Care Team (Late st Contact Info) Description 06/28/2025 3:00 PM ANGER CONTROL COUNSELOR Office Visit [facility] Specialty [address] [phone] Fransisco Eddy MD [address] [place] [address] documented as of this encounter Visit Diagnoses Diagnosis HTN (hypertension), benign- Primary Essential hypertension, benign Osteoarthritis Osteoarthrosis, unspecified whether generalized or localized, unspecified site documented in this encounter Additional Health Concerns Infection Onset Date Last Indicated Resolved Time Rule Out COVID-19 05/08/2021 05/08/2021 05/09/2021 9:08 PM ANGER CONTROL COUNSELOR documented as of this encounter Care Teams Physician Coder Relationship Specialty Start Date End Date Esperanza Gatica MD PCP - General Family Practice 10/13/11 12/29/21 [place] [address] [place] [address] PCP - Assigned PCP 12/05/17 08/23/18 Alfreda Ray PA-C [address] [place] [address] PCP - General Family Medicine 12/30/21 [place] [address] [place] [address] Assigned PCP 12/05/17 09/30/19 [place] [address] [place] [address] Assigned PCP 10/01/19 03/02/20 [place] [address] [place] [address] Assigned PCP 03/03/20 05/25/20 [place] [address] [place] [address] Assigned PCP 05/26/20 09/28/20 [place] [address] [place] [address] Assigned PCP 09/29/20 07/31/22 [place] [address] [place] [address] Assigned Musculoskeletal Provider 10/20/20 04/17/22 Alfreda Ray PA-C [address] [place] [address] Referring Physician Family Medicine 12/31/21 Katrin Orellana PA-C [address] [place] [address] Physician Assistant Product Manager Dermatology 12/31/21 Shanna Vang PA-C [address] [place] [address] Assigned Cancer Care Provider 01/10/22 Fransisco Eddy MD [address] [place] [address] Assigned Rheumatology Provider 05/09/22 [place] [address] [place] [address] Assigned Pain Medication Provider 06/29/22 09/04/22 [place] [address] [place] [address] Assigned PCP 08/15/22 08/28/22 Katrin Orellana PA-C [address] [place] [address] Assigned Surgical Provider 08/15/22 02/10/24 Cristina Hsieh [facility] [address] [place] [address] [place] [address] Pharmacist Pharmacist 09/07/22 Alfreda Ray PA-C [address] [place] [address] Assigned Pain Medication Provider 09/05/22 09/10/23 Alfreda Ray PA-C [address] [place] [address] Assigned PCP 08/29/22 Cristina Hsieh, [facility] [address] [facility] [address] [place] [address] Assigned MTM Pharmacist 09/26/22 Dakota Tatum MD [address] [address] Cardiovascular Disease 03/25/23 Dakota Tatum MD Assigned Heart and Vascular Provider 05/01/23 11/09/24 [place] [address] [facility], [address] [address] Assigned Musculoskeletal Provider 04/12/24 Johanne Gutierrez RN RN Clinical Product Navigator Primary Care - CC 08/18/24 08/18/24 Linda Ambriz, [facility] Lead Cataract Lens Generator 08/18/24 08/23/24 documented as of this encounter
--- OUTSIDE RECORDS SUMMARY | 2025-02-24 20:52 | XMS_ITS | Encounter Summary ---
Author Organization [place] Address [address] [place] [address] Care Team Providers Care B2B Outside Sales Representative Name Role Phone Esperanza Gatica MD Primary Care Provider + Esperanza Gatica MD Unavailable +[phone] Esperanza Gatica MD Unavailable +[phone] Esperanza Gatica MD Unavailable +[phone] Esperanza Gatica MD Unavailable +[phone] Esperanza Gatica MD Unavailable +[phone] Esperanza Gatica MD Unavailable +[phone] Jesús Orourke MD Unavailable Alfreda RayC Primary Care Provider + Alfreda Ray PA-C Unavailable +- [phone] Katrin Orellana PA-C Unavailable [phone] Shanna VangC Unavailable [phone] Fransisco Eddy MD Unavailable [phone] Esperanza Gatica MD Unavailable +[phone] Esperanza Gatica MD Unavailable +[phone] Katrin Orellana PA-C Unavailable Cristina Hsieh [facility] Unavailable [phone] Alfreda Ray Alexa KING Unavailable Alfreda Ray Alexa KING Unavailable [phone] Cristina Hsieh [facility] Unavailable Dakota Tatum MD Unavailable Unava ilable Dakota Tatum MD Unavailable Unava ilable Srinivas Marie Unavailable [phone] Brenda Johanne Salome [facility] Unavailable [phone] Linda Ambriz Gallito [employer] [place] Unavailable [phone] Reason for Visit * Reason Onset Date Comments Refill Request 04/07/2014 Encounter Details Date Type Department Care Team (Late st Contact Info) Description 04/07/2014 MyC Refill [address], [address] [place] [address] [place] [address] [place], [place] [id number] Refill Request Social History Tobacco Use Types Packs/Day Years Used Date Smoking Tobacco: Former Cigarettes Q uit: 06/21/1973 Smokeless Tobacco: Former Alcohol Use Standard Drinks/Week Comments Yes 0 (1 standard drink = 0.6 oz pur e alcohol) rarely Comments No Sex and Gender Information Value Date Recorded Sex Assigned at Female 08/17/2018 7:56 AM STEAM TURBINE ASSEMBLER Legal Sex Female 4:24 AM STEAM TURBINE ASSEMBLER Gender Identity Female 08/17/2018 7:56 AM STEAM TURBINE ASSEMBLER Sexual Orientation Straight 08/17/2018 7: 56 AM STEAM TURBINE ASSEMBLER documented as of this encounter Miscellaneous Notes * Telephone Encounter - Fartun Mayes RN - 04/09/2014 9:20 AM CDT MyChart refill request for tramadol. Last OV 03/29/14. Last filled 03/05/14, qty 30. Unable to refillper SO protocol, to for auth. * Telephone Encounter - Fartun Mayes RN - 04/09/2014 9:17 AM CDTMessage from [facility]: Original authorizing provider: MD Alexandria Brannon would like a refill of the following medications: traMADol (ULTRAM) 50 MG tablet [Esperanza Gatica MD] Preferred pharmacy: [id number] Comment: documented in this encounter Plan of Treatment Upcoming Encounters Date Type Department Care Team (Late st Contact Info) Description 06/28/2025 3:00 PM STEAM TURBINE ASSEMBLER Office Visit [facility] [address] [phone] Fransisco Eddy MD [address] [place] [address] [phone] documented as of this encounter Visit Diagnoses Diagnosis HTN (hypertension), benign Essential hypertension, benign documented in this encounter Additional Health Concerns Infection Onset Date Last Indicated Resolved Time Rule Out COVID-19 05/08/2021 05/08/2021 05/09/2021 9:08 PM STEAM TURBINE ASSEMBLER documented as of this encounter Care Teams B2B Outside Sales Representative Relationship Specialty Start Date End Date Esperanza Gatica MD PCP - General Family Practice 10/13/11 12/29/21 [place] [address] [place] [address] PCP - Assigned PCP 12/05/17 08/23/18 Alfreda Ray PA-C [address] [place] [address] PCP - General Family Medicine 12/30/21 [place] [address] [address] [address] Assigned PCP 12/05/17 09/30/19 [place] [address] [address] [address] Assigned PCP 10/01/19 03/02/20 [place] [address] [address] [address] Assigned PCP 03/03/20 05/25/20 [place] [address] [address] [address] Assigned PCP 05/26/20 09/28/20 [place] [address] [address] [address] Assigned PCP 09/29/20 07/31/22 Jesú[place] [address] [place] [address] Assigned Musculoskeletal Provider 10/20/20 04/17/22 Alfreda Ray PA-C [address] [place] [address] 751122 Referring Physician Family Medicine 12/31/21 Katrin Orellana PA-C [address] [place] [address] 721615 Physician Manager Mba Dermatology 12/31/21 Shanna Vang PA-C [address] [place] [address] 476654 Assigned Cancer Care Provider 01/10/22 Fransisco Eddy MD [address] [place] [address] 802705 Assigned Rheumatology Provider 05/09/22 [place] [address] [place] [address] Assigned Pain Medication Provider 06/29/22 09/04/22 [place] [address] [place] [address] Assigned PCP 08/15/22 08/28/22 Katrin Orellana PA-C [address] [place] [address] Assigned Surgical Provider 08/15/22 02/10/24 Cristina Hsieh, [facility] [address] [place] [address] [place] [address] Pharmacist Pharmacist 09/07/22 Alfreda Ray PA-C [address] [place] [address] 124142 Assigned Pain Medication Provider 09/05/22 09/10/23 Alfreda Ray PA-C [address] [place] [address] 237362 Assigned PCP 08/29/22 Cristina Hsieh, [facility] [address] [address] Assigned MTM Pharmacist 09/26/22 Dakota Tatum MD [address] [address] Cardiovascular Disease 03/25/23 Dakota Tatum MD Assigned Heart and Vascular Provider 05/01/23 11/09/24 [place] [address] [facility], [address] [address] Assigned Musculoskeletal Provider 04/12/24 Johanne Gutierrez RN RN Clinical Product Navigator Primary Care - CC 08/18/24 08/18/24 Linda Ambriz, [facility] Lead Field Account Manager 08/18/24 08/23/24 documented as of this encounter
--- OUTSIDE RECORDS SUMMARY | 2025-02-24 20:52 | XMS_ITS | Encounter Summary ---
Author Organization [facility] Address [address] [place] [address] Care Team Providers Care High Tension Tester Name Role Phone Esperanza Gatica MD Primary Care Provider + Esperanza Gatica MD Unavailable +[phone] Esperanza Gatica MD Unavailable +[phone] Esperanza Gatica MD Unavailable +[phone] Esperanza Gatica MD Unavailable +[phone] Esperanza Gatica MD Unavailable +[phone] Esperanza Gatica MD Unavailable +[phone] Jesús Orourke MD Unavailable Alfreda RayC Primary Care Provider + Alfreda Ray PA-C Unavailable +- [phone] Katrin Orellana PA-C Unavailable [phone] Shanna VangC Unavailable +[phone] Fransisco Eddy MD Unavailable [phone] Esperanza Gatica MD Unavailable +[phone] Esperanza Gatica MD Unavailable +[phone] Katrin Orellana PA-C Unavailable [phone] Cristina Hsieh [facility] Unavailable +[phone] Cory Alfreda Liu PA-C Unavailable +[phone] Ho Raymustapha Liu PA-C Unavailable [phone] Cristina Hsieh [facility] Unavailable +[phone] Dakota Tatum MD Unavailable Unava ilable Dakota Tatum MD Unavailable Unava ilable Srinivas Marie Unavailable [phone] Brenda Johanne Salome RN Unavailable [phone] Linda Ambriz Gallito [facility] Unavailable +[phone] Reason for Visit * Reason Onset Date Comments Medication Question 05/09/2014 Ambien and H ydrocodone Encounter Details Date Type Department Care Team (Late st Contact Info) Description 05/09/2014 MyC Medical Advice [address], [address] [place] [address] [place] [address] [place] [address] Medication Question (Ambien and Hydrocodone) Social History Tobacco Use Types Packs/Day Years Used Date Smoking Tobacco: Former Cigarettes Q uit: 06/21/1973 Smokeless Tobacco: Former Alcohol Use Standard Drinks/Week Comments Yes 0 (1 standard drink = 0.6 oz pur e alcohol) rarely Comments No Sex and Gender Information Value Date Recorded Sex Assigned at Female 08/17/2018 7:56 AM WHOLESALE AND RETAIL MERCHANT Legal Sex Female 4:24 AM WHOLESALE AND RETAIL MERCHANT Gender Identity Female 08/17/2018 7:56 AM WHOLESALE AND RETAIL MERCHANT Sexual Orientation Straight 08/17/2018 7: 56 AM WHOLESALE AND RETAIL MERCHANT documented as of this encounter Miscellaneous Notes * Telephone Encounter - Leigha Rinaldi RN - 06/11/2014 11:53 AM CST RX faxed. Leigha Rinaldi RN ESALE AND RETAIL MERCHANT * Telephone Encounter - Royer Brumfield MD - 06/11/2014 11:26 AM WHOLESALE AND RETAIL MERCHANT OK, I switched her to 5mg tabs so insurance shouldn't mess with the quantity any more. She should take one full tab when needed. Note that med is NOT intended for nightly use; provided quantity is for one month. Royer Brumfield MD ESALE AND RETAIL MERCHANT * Telephone Encounter - Leigha Rinaldi RN - 06/11/2014 10:48 AM CST Spoke with patient. She only got quantity #15 dispensed on 05/14/2014 so rx only lasted 1 month. (insurance probably dispensed it that way) Patient will run out of med. Please consider refill. Leigha Rinaldi RN ESALE AND RETAIL MERCHANT * Telephone Encounter - Royer Brumfield MD - 06/11/2014 9:01 AM WHOLESALE AND RETAIL MERCHANT Ambien filled 05/07/14 was marked as a two month refill. Royer Brumfield MD ESALE AND RETAIL MERCHANT * Telephone Encounter - Leigha Rinaldi RN [...] AMBIEN 03/12/2014 #90 HYDROCODONE Leigha Rinaldi RN ESALE AND RETAIL MERCHANT documented in this encounter Plan of Treatment Upcoming Encounters Date Type Department Care Team (Late st Contact Info) Description 06/28/2025 3:00 PM WHOLESALE AND RETAIL MERCHANT Office Visit [facility] [place] [address] [place] [address] [address] [place] [phone] Fransisco Eddy MD [address] [place] [address] documented as of this encounter Visit Diagnoses Diagnosis Osteoarthritis- Primary Osteoarthrosis, unspecified whether generalized or localized, unspecified site INSOMNIA NEC Insomnia, unspecified documented in this encounter Additional Health Concerns Infection Onset Date Last Indicated Resolved Time Rule Out COVID-19 05/08/2021 05/08/2021 05/09/2021 9:08 PM WHOLESALE AND RETAIL MERCHANT documented as of this encounter Care Teams High Tension Tester Relationship Specialty Start Date End Date Esperanza Gatica MD PCP - General Family Practice 10/13/11 12/29/21 [place] [address] [address] [address] PCP - Assigned PCP 12/05/17 08/23/18 Alfreda Ray PA-C [address] [place] [address] PCP - General Family Medicine 12/30/21 [place] [address] [address] [address] Assigned PCP 12/05/17 09/30/19 [place] [address] [address] [address] Assigned PCP 10/01/19 03/02/20 [place] [address] [place] [address] Assigned PCP 03/03/20 05/25/20 [place] [address] [place] [address] Assigned PCP 05/26/20 09/28/20 [place] [address] [place] [address] Assigned PCP 09/29/20 07/31/22 [place] [address] [facility] [address] Assigned Musculoskeletal Provider 10/20/20 04/17/22 Alfreda Ray PA-C [address] [place] [address] 550962 Referring Physician Family Medicine 12/31/21 Katrin Orellana PA-C [address] [place] [address] 658055 Physician Engraver Steel Plate Dermatology 12/31/21 Shanna Vang PA-C [address] [place] [address] Assigned Cancer Care Provider 01/10/22 Fransisco Eddy MD [address] [place] [address] 494835 Assigned Rheumatology Provider 05/09/22 [place] [address] [place] [address] Assigned Pain Medication Provider 06/29/22 09/04/22 [place] [address] [place] [address] Assigned PCP 08/15/22 08/28/22 Katrin Orellana PA-C [address] [place] [address] Assigned Surgical Provider 08/15/22 02/10/24 Cristina Hsieh, [facility] [address] [facility] [place] [address] Pharmacist Pharmacist 09/07/22 Alfreda Ray PA-C [address] [place] [address] 235252 Assigned Pain Medication Provider 09/05/22 09/10/23 Alfreda Ray PA-C [address] [place] [address] 886242 Assigned PCP 08/29/22 Cristina Hsieh, [facility] [address] [address] Assigned MTM Pharmacist 09/26/22 Dakota Tatum MD [address] [address] Cardiovascular Disease 03/25/23 Dakota Tatum MD Assigned Heart and Vascular Provider 05/01/23 11/09/24 [place] [address] [facility], [address] [address] Assigned Musculoskeletal Provider 04/12/24 Johanne Gutierrez RN RN Clinical Product Navigator Primary Care - CC 08/18/24 08/18/24 Linda Ambriz, [facility] Lead Sheriff'S Officer 08/18/24 08/23/24 documented as of this encounter
--- OUTSIDE RECORDS SUMMARY | 2025-02-24 20:52 | XMS_ITS | Encounter Summary ---
Author Organization [place] Address [address] [place] [address] Care Team Providers Care Quality Assurance Coach Name Role Phone Esperanza Gatica MD Primary Care Provider + Esperanza Gatica MD Unavailable +[phone] Esperanza Gatica MD Unavailable +[phone] Esperanza Gatica MD Unavailable +[phone] Esperanza Gatica MD Unavailable +[phone] Esperanza Gatica MD Unavailable +[phone] Esperanza Gatica MD Unavailable +[phone] Jesús Orourke MD Unavailable Alfreda RayC Primary Care Provider + Alfreda Ray PA-C Unavailable +- [phone] Katrin Orellana PA-C Unavailable +[phone] Shanna VangC Unavailable +[phone] Fransisco Eddy MD Unavailable +[phone] Esperanza Gatica MD Unavailable +[phone] Esperanza Gatica MD Unavailable +[phone] Katrin Orellana PA-C Unavailable Cristina Hsieh [facility] Unavailable +[phone] Cory Alfreda Liu PA-C Unavailable +[phone] Ho Raymustapha Liu PA-C Unavailable +[phone] Cristina Hsieh [facility] Unavailable +[phone] Dakota Tatum MD Unavailable Unava ilable Dakota Tatum MD Unavailable Unava ilable Srinivas Marie Unavailable +[phone] Brenda Johanne Salome RN Unavailable [phone] Pb Clarita Gallito CHILD AND YOUTH PROGRAM ASSISTANT Unavailable +[phone] Reason for Visit * Reason Onset Date Comments Refill Request 12/19/2013 [place], Lisinopri l-HCTZ Encounter Details Date Type Department Care Team (Late st Contact Info) Description 12/19/2013 MyC Refill [address], [address] [place] [address] [place] [address] [place] [address] Refill Request ([place], Lisinopril-HCTZ) Social History Tobacco Use Types Packs/Day Years Used Date Smoking Tobacco: Former Cigarettes Q uit: 06/21/1973 Smokeless Tobacco: Former Alcohol Use Standard Drinks/Week Comments Yes 0 (1 standard drink = 0.6 oz pur e alcohol) rarely Comments No Sex and Gender Information Value Date Recorded Sex Assigned at Female 08/17/2018 7:56 AM METALLOGRAPHIC TECHNICIAN Legal Sex Female 4:24 AM METALLOGRAPHIC TECHNICIAN Gender Identity Female 08/17/2018 7:56 AM METALLOGRAPHIC TECHNICIAN Sexual Orientation Straight 08/17/2018 7: 56 AM METALLOGRAPHIC TECHNICIAN documented as of this encounter Miscellaneous [...] RN - 12/19/2013 10:21 AM [facility] Original authorizing provider: MD Alexandria Brannon would like a refill of the following medications: HYDROcodone-acetaminophen (NORCO) 5-325 MG per tablet [Esperanza Gatica MD] Preferred pharmacy: [id number] Comment: Dr. Gatica is my Doctor. Medication renewals requested in this message routed to other providers: lisinopril-hydrochlorothiazide (PRINZIDE,ZESTORETIC) 10-12.5 MG per tablet [Royer Brumfield MD] documented in this encounter Plan of Treatment Upcoming Encounters Date Type Department Care Team (Late st Contact Info) Description 06/28/2025 3:00 PM METALLOGRAPHIC TECHNICIAN Office Visit [facility] [address] [address] Fransisco Eddy MD [address] [place] [address] 314155 documented as of this encounter Visit Diagnoses Diagnosis Osteoarthritis Osteoarthrosis, unspecified whether generalized or localized, unspecified site HTN (hypertension), benign Essential hypertension, benign documented in this encounter Additional Health Concerns Infection Onset Date Last Indicated Resolved Time Rule Out COVID-19 05/08/2021 05/08/2021 05/09/2021 9:08 PM METALLOGRAPHIC TECHNICIAN documented as of this encounter Care Teams Quality Assurance Coach Relationship Specialty Start Date End Date Esperanza Gatica MD PCP - General Family Practice 10/13/11 12/29/21 [place] [address] [address] [address] PCP - Assigned PCP 12/05/17 08/23/18 Alfreda Ray PA-C [address] [place] [address] PCP - General Family Medicine 12/30/21 [place] [address] [place] [place] [address] Assigned PCP 12/05/17 09/30/19 [place] [address] [place] [address] Assigned PCP 10/01/19 03/02/20 [place] [address] [place] 67[address] Assigned PCP 03/03/20 05/25/20 [place] [address] [place] [address] Assigned PCP 05/26/20 09/28/20 [place] [address] [place] [place] [address] Assigned PCP 09/29/20 07/31/22 [place] [address] [place] [address] [address] Assigned Musculoskeletal Provider 10/20/20 04/17/22 Alfreda Ray PA-C [address] [place] [address] 149932 Referring Physician Family Medicine 12/31/21 Katrin Orellana PA-C [address] [place] [address] 667305 Physician Briefcase Sewer Dermatology 12/31/21 Shanna Vang PA-C [address] [place] [address] 864434 Assigned Cancer Care Provider 01/10/22 Fransisco Eddy MD [address] [place] [address] 191875 Assigned Rheumatology Provider 05/09/22 [place] [address] [place] [address] Assigned Pain Medication Provider 06/29/22 09/04/22 [place] [address] [place] [address] Assigned PCP 08/15/22 08/28/22 Katrin Orellana PA-C [address] [place] [address] Assigned Surgical Provider 08/15/22 02/10/24 Cristina Hsieh [facility] [address] [place] [address] Pharmacist Pharmacist 09/07/22 Alfreda Ray PA-C [address] [place] [address] Assigned Pain Medication Provider 09/05/22 09/10/23 Alfreda Ray PA-C [address] [place] [address]1985 Assigned PCP 08/29/22 Cristina Hsieh [facility] [address] [facility] [address] [place] [address] Assigned MTM Pharmacist 09/26/22 Dakota Tatum MD [address] [address] Cardiovascular Disease 03/25/23 Dakota Tatum MD Assigned Heart and Vascular Provider 05/01/23 11/09/24 [place] [address] [place] , [address] [address] Assigned Musculoskeletal Provider 04/12/24 Johanne Gutierrez, RN RN Clinical Product Navigator Primary Care - CC 08/18/24 08/18/24 Linda Ambirz, [facility] Lead Electronic Components Assembler 08/18/24 08/23/24 documented as of this encounter
--- OUTSIDE RECORDS SUMMARY | 2025-02-24 20:52 | XMS_ITS | Encounter Summary ---
Author Organization [place] Address [address] [place] [address] Care Team Providers Care Behavior Interventionist Name Role Phone Esperanza Gatica MD Primary Care Provider + Esperanza Gatica MD Unavailable +[phone] Esperanza Gatica MD Unavailable +[phone] Esperanza Gatica MD Unavailable +[phone] Esperanza Gatica MD Unavailable +[phone] Esperanza Gatica MD Unavailable +522 Esperanza Gatica MD Unavailable +[phone] Jesús Orourke MD Unavailable Alfreda RayC Primary Care Provider + Alfreda Ray PA-C Unavailable +- [phone] Katrin Orellana PA-C Unavailable [phone] Shanna VangC Unavailable +[phone] Fransisco Eddy MD Unavailable [phone] Esperanza Gatica MD Unavailable +[phone] Esperanza Gatica MD Unavailable +[phone] Katrin Orellana PA-C Unavailable Cristina Hsieh [facility] Unavailable +[phone] Cory Alfreda Liu PA-C Unavailable [phone] Ho Raymustapha Liu PA-C Unavailable +[phone] Cristina Hsieh [facility] Unavailable +[phone] Dakota Tatum MD Unavailable Unava ilable Dakota Tatum MD Unavailable Unava ilable CynthiaSrinivas Unavailable [phone] Brenda Johanne Salome [facility] Unavailable [phone] Pb [place] Gallito [facility] Unavailable [phone] Reason for Visit * Reason Onset Date Comments Refill Request 09/22/2012 Ultram 50mg Encounter Details Date Type Department Care Team (Late st Contact Info) Description 09/22/2012 MyC Refill [address], [address] [place] [address] [place] [address] [place], [place] [phone] Refill Request (Ultram 50mg) Social History Tobacco Use Types Packs/Day Years Used Date Smoking Tobacco: Former Cigarettes Q uit: 06/21/1973 Smokeless Tobacco: Former Alcohol Use Standard Drinks/Week Comments Yes 0 (1 standard drink = 0.6 oz pur e alcohol) rarely Comments No Sex and Gender Information Value Date Recorded Sex Assigned at Female 08/17/2018 7:56 AM TERRITORY SALES EXECUTIVE Legal Sex Female 4:24 AM TERRITORY SALES EXECUTIVE Gender Identity Female 08/17/2018 7:56 AM TERRITORY SALES EXECUTIVE Sexual Orientation Straight 08/17/2018 7: 56 AM TERRITORY SALES EXECUTIVE documented as of this encounter Miscellaneous Notes [...] MD] Preferred pharmacy: [id number] - [address] Comment: documented in this encounter Plan of Treatment Upcoming Encounters Date Type Department Care Team (Late st Contact Info) Description 06/28/2025 3:00 PM TERRITORY SALES EXECUTIVE Office Visit [facility] [address] [place] [phone] Fransisco Eddy MD [address] [place] [address] [id number] documented as of this encounter Visit Diagnoses Diagnosis Knee pain Pain in joint, lower leg documented in this encounter Additional Health Concerns Infection Onset Date Last Indicated Resolved Time Rule Out COVID-19 05/08/2021 05/08/2021 05/09/2021 9:08 PM TERRITORY SALES EXECUTIVE documented as of this encounter Care Teams Behavior Interventionist Relationship Specialty Start Date End Date Esperanza Gatica MD PCP - General Family Practice 10/13/11 12/29/21 [place] [address] [place] [address] PCP - Assigned PCP 12/05/17 08/23/18 Alfreda Ray PA-C [address] [place] [address] PCP - General Family Medicine 12/30/21 [place] [address] [place] [address] Assigned PCP 12/05/17 09/30/19 [place] [address] [place] [address] Assigned PCP 10/01/19 03/02/20 [place] [address] [place] [address] Assigned PCP 03/03/20 05/25/20 [place] [address] [place] [address] Assigned PCP 05/26/20 09/28/20 [place] [address] [place] [address] Assigned PCP 09/29/20 07/31/22 Jesú[place] [address] [facility] [place] [address] Assigned Musculoskeletal Provider 10/20/20 04/17/22 Alfreda Ray PA-C [address] [place] [address] 060762 Referring Physician Family Medicine 12/31/21 Katrin Orellana PA-C [address] [address] Physician Auto Parts Clerk Dermatology 12/31/21 Shanna Vang PA-C [address] [place] [address] Assigned Cancer Care Provider 01/10/22 Fransisco Eddy MD [address] [place] [address] 88 [place] [address] Assigned Rheumatology Provider 05/09/22 [place] [address] [place] [address] Assigned Pain Medication Provider 06/29/22 09/04/22 [place] [address] [place] [address] Assigned PCP 08/15/22 08/28/22 Katrin Orellana PA-C [address] [place] [address] 98 [place], [place] 812325 Assigned Surgical Provider 08/15/22 02/10/24 Cristina Hsieh, [facility] [address] [facility] [place] [address] Pharmacist Pharmacist 09/07/22 Alfreda Ray PA-C [address] [place] [address] 465982 Assigned Pain Medication Provider 09/05/22 09/10/23 Alfreda Ray PA-C [address] [place] [address] Assigned PCP 08/29/22 Cristina Hsieh, [facility] [address] [address] Assigned MTM Pharmacist 09/26/22 Dakota Tatum MD [address] [address] Cardiovascular Disease 03/25/23 Dakota Tatum MD Assigned Heart and Vascular Provider 05/01/23 11/09/24 [place] [address] [place] , [address] [address] Assigned Musculoskeletal Provider 04/12/24 Johanne Gutierrez RN TIFFANIE Clinical Product Navigator Primary Care - CC 08/18/24 08/18/24 Linda Ambriz, CITY DISTRIBUTION CLERK Lead Lawn Caretaker 08/18/24 08/23/24 documented as of this encounter
--- OUTSIDE RECORDS SUMMARY | 2025-02-24 20:52 | XMS_ITS | Encounter Summary ---
Author Organization [facility] Address [address] [place] [address]. [place] [address] Care Team Providers Care Signal Technician Name Role Phone Alfreda Ray PA-C Primary Care Provider + Alfreda RayC Unavailable [phone] Katrin Orellana-C Unavailable Shanna Vang-C Unavailable [phone] Fransisco Eddy MD Unavailable Cristina Hsieh [facility] Unavailable [phone] Alfreda Ray-C Unavailable [phone] Cristina Hsieh [facility] Unavailable Dakota Tatum MD Unavailable Unava ilSrinivas Yun DO Unavailable [phone] Reason for Visit * Reason Onset Date Comments Outreach 01/26/2025 MT 1st attempt Encounter Details Date Type Department Care Team (Late st Contact Info) Description 01/26/2025 Telephone [facility] Pharm D Project [address] [place] [address] No Ref-Primary, Physician Outreach (MTM 1st attempt ) Social History Tobacco Use Types Packs/Day [...] re latives? Once a week 03/15/2024 Attends [employer] Services Not on file 03/15 Active Member of Clubs or Organizations Not on f ile 03/15/2024 Attends Club or Organization Meetings Not on anu e 03/15/2024 Marital Status Not on file 03/15/2024 PHQ-2 Answer Date Recorded PHQ-2 Score 0 03/16/2024 [facility] Childwold of Occupat ional Health - Occupational Stress [...] permanent housing and does not include staying outside in a car, in a tent, in [...] Sex Assigned at Female 08/17/2018 7:56 AM FOREIGN AGENT Legal Sex Female 4:24 AM FOREIGN AGENT Gender Identity Female 08/17/2018 7:56 AM FOREIGN AGENT Sexual Orientation Straight 08/17/2018 7: 56 AM FOREIGN AGENT documented as of this encounter Miscellaneous Notes * Telephone Encounter - Gloria Cuenca - 01/26/2025 12:50 PM CDT [facility] Recruitment: [facility] insurance Referral outreach attempt #1 on January 26, 2025 Outcome: patient opted out - switched health care system to [facility] Lucy Cuenca CMA [facility] Raw Stock Machine Loader documented in this encounter Plan of Treatment Upcoming Encounters Date Type Department Care Team (Late st Contact Info) Description 06/28/2025 3:00 PM FOREIGN AGENT Office Visit [facility] [address] [address] Fransisco Eddy MD [address] [place] [address] documented as of this encounter Visit Diagnoses Not on filedocumented in this encounter Additional Health Concerns Assessment Noted Time PHQ-9 Depression Total Score: 5 03/09/20 23 10:57 AM CDT documented as of this encounter Care Teams Signal Technician Relationship Specialty Start Date End Date Alfreda Ray PA-C [address] [place] [address] PCP - General Family Medicine 12/30/21 Alfreda Ray PA-C [address] [place] [address] Referring Physician Family Medicine 12/31/21 Katrin Orellana PA-C [address] [place] [address] 611685 Physician Delivery Room Supervisor Dermatology 12/31/21 Shanna Vang PA-C [facility] [address] 015704 Assigned Cancer Care Provider 01/10/22 Fransisco Eddy MD [address] [place] [address] 277815 Assigned Rheumatology Provider 05/09/22 Cristina Hsieh [facility] [address] [facility] [place]BETH HER[place]DEZ [address] Pharmacist Pharmacist 09/07/22 Alfreda Ray PA-C [address] [place] [address] Assigned PCP 08/29/22 Cristina Hsieh [facility] [address] [address] Assigned MTM Pharmacist 09/26/22 Dakota Tatum MD [address] [place] [address] [place] [address] Cardiovascular Disease 03/25/23 [place] [address] [address], [facility] [address] [place] [address] Assigned Musculoskeletal Provider 04/12/24 documented as of this encounter
--- OUTSIDE RECORDS SUMMARY | 2025-02-24 20:52 | XMS_ITS | Encounter Summary ---
Author Organization [place] Address [address] [place] [address] Care Team Providers Care Agile Test Lead Name Role Phone Esperanza Gatica MD Primary Care Provider + Esperanza Gatica MD Unavailable +[phone] Esperanza Gatica MD Unavailable +[phone] Esperanza Gatica MD Unavailable +[phone] Esperanza Gatica MD Unavailable +336 Esperanza Gatica MD Unavailable +[phone] Esperanza Gatica MD Unavailable [phone] Jesús Orourke MD Unavailable Alfreda RayC Primary Care Provider + Alfreda Ray PA-C Unavailable +[phone] Katrin Orellana PA-C Unavailable [phone] Shanna VangC Unavailable +[phone] Fransisco Eddy MD Unavailable [phone] Esperanza Gatica MD Unavailable +[phone] Esperanza Gatica MD Unavailable +[phone] Katrin Orellana PA-C Unavailable Cristina Hsieh [facility] Unavailable +[phone] Cory Alfreda iLu PA-C Unavailable +[phone] Ho Raymustapha Liu PA-C Unavailable [phone] Cristina Hsieh [facility] Unavailable +[phone] Dakota Tatum MD Unavailable Unava ilable Dakota Tatum MD Unavailable Unava ilable Srinivas Marie Unavailable [phone] Brenda Johanne Salome RN Unavailable [phone] Linda Ambriz Gallito [facility] Unavailable [phone] Reason for Visit * Reason Onset Date Comments Refill Request 01/07/2014 tramadol Encounter Details Date Type Department Care Team (Late st Contact Info) Description 01/07/2014 MyC Refill [address], [address] [place] [address] [place] [address] [place] [address] Refill Request (tramadol) Social History Tobacco Use Types Packs/Day Years Used Date Smoking Tobacco: Former Cigarettes Q uit: 06/21/1973 Smokeless Tobacco: Former Alcohol Use Standard Drinks/Week Comments Yes 0 (1 standard drink = 0.6 oz pur e alcohol) rarely Comments No Sex and Gender Information Value Date Recorded Sex Assigned at Female 08/17/2018 7:56 AM SAND TESTER Legal Sex Female 4:24 AM SAND TESTER Gender Identity Female 08/17/2018 7:56 AM SAND TESTER Sexual Orientation Straight 08/17/2018 7: 56 AM SAND TESTER documented as of this encounter Miscellaneous Notes * Telephone Encounter - Diane Macedo RN - 01/08/2014 8:09 AM CDT Does not meet standard requirement for RN refill protocol. Medication: tramadol Last OV: 10/24/13 Provider: MD ZAIDA Reason for visit: SI joint dysfunction, etc... Last refill: 12/11/13 #30 Please refill if appropriate. Thank you! Diane Macedo RN [facility] Work Force * Telephone Encounter - Diane Macedo RN - 01/08/2014 8:08 AM CDT Message from [facility]: Original authorizing provider: MD Alexandria Brannon would like a refill of the following medications: traMADol (ULTRAM) 50 MG tablet [Esperanza Gatica MD] Preferred pharmacy: [id number] Comment: Medication renewals requested in this message routed to other providers: zolpidem (AMBIEN) 10 MG tablet [Royer Brumfield MD] documented in this encounter Plan of Treatment Upcoming Encounters Date Type Department Care Team (Late st Contact Info) Description 06/28/2025 3:00 PM SAND TESTER Office Visit [facility] [address] [address] Fransisco Eddy MD [address] [place] [address] [phone] documented as of this encounter Visit Diagnoses Diagnosis HTN (hypertension), benign Essential hypertension, benign documented in this encounter Additional Health Concerns Infection Onset Date Last Indicated Resolved Time Rule Out COVID-19 05/08/2021 05/08/2021 05/09/2021 9:08 PM SAND TESTER documented as of this encounter Care Teams Agile Test Lead Relationship Specialty Start Date End Date Esperanza Gatica MD PCP - General Family Practice 10/13/11 12/29/21 [place] [address] [place] [address] PCP - Assigned PCP 12/05/17 08/23/18 Alfreda Ray PA-C [address] [place] [address] PCP - General Family Medicine 12/30/21 [place] [address] [place] [address] Assigned PCP 12/05/17 09/30/19 [place] [address] [place] [address] Assigned PCP 10/01/19 03/02/20 [place] [address] [place] [address] Assigned PCP 03/03/20 05/25/20 [place] [address] [place] [address] Assigned PCP 05/26/20 09/28/20 [place] [address] [place] [address] Assigned PCP 09/29/20 07/31/22 [place] [address] [place] [address] Assigned Musculoskeletal Provider 10/20/20 04/17/22 Alfreda Ray PA-C [address] [place] [address] Referring Physician Family Medicine 12/31/21 Katrin Orellana PA-C [address] [place] [address] Physician Atm Manager Dermatology 12/31/21 Shanna Vang PA-C [address] [place] [address] Assigned Cancer Care Provider 01/10/22 Fransisco Eddy MD [address] [place] [address] Assigned Rheumatology Provider 05/09/22 [place] [address] [place] [address] Assigned Pain Medication Provider 06/29/22 09/04/22 [place] [address] [place] [address] Assigned PCP 08/15/22 08/28/22 Katrin Orellana PA-C [address] [place] [address] Assigned Surgical Provider 08/15/22 02/10/24 Cristina Hsieh [facility] [address] [place] [address] [place] [address] Pharmacist Pharmacist 09/07/22 Alfreda Ray PA-C [address] [place] [address] Assigned Pain Medication Provider 09/05/22 09/10/23 Alfreda Ray PA-C [address] [place] [address] Assigned PCP 08/29/22 Cristina Hsieh, [facility] [address] [address] Assigned MTM Pharmacist 09/26/22 Dakota Tatum MD [address] [address] Cardiovascular Disease 03/25/23 Dakota Tatum MD Assigned Heart and Vascular Provider 05/01/23 11/09/24 [place] [address] [address] , [address] [address] Assigned Musculoskeletal Provider 04/12/24 Johanne Gutierrez, RN TIFFANIE Clinical Product Navigator Primary Care - CC 08/18/24 08/18/24 Linda Ambriz, [facility] Lead School Inspector 08/18/24 08/23/24 documented as of this encounter
--- OUTSIDE RECORDS SUMMARY | 2025-02-24 20:52 | XMS_ITS | Encounter Summary ---
Author Organization [facility] Address [address] [place] [address] Care Team Providers Care Glove Tagger Name Role Phone Esperanza Gatica MD Primary Care Provider + Esperanza Gatica MD Unavailable +[phone] Esperanza Gatica MD Unavailable +[phone] Esperanza Gatica MD Unavailable +[phone] Esperanza Gatica MD Unavailable +[phone] Esperanza Gatica MD Unavailable +[phone] Esperanza Gatica MD Unavailable +[phone] Jesús Orourke MD Unavailable Alfreda RayC Primary Care Provider + Alfreda Ray PA-C Unavailable +- [phone] Katrin Orellana PA-C Unavailable +[phone] Shanna VangC Unavailable +[phone] Fransisco Eddy MD Unavailable +[phone] Esperanza Gatica MD Unavailable +[phone] Esperanza Gatica MD Unavailable +[phone] Katrin Orellana PA-C Unavailable Cristina Hsieh [facility] Unavailable +[phone] Ho Raymustapha Liu PA-C Unavailable +[phone] Alfreda Ray Alexa KING Unavailable +[phone] Cristina Hsieh [facility] Unavailable +[phone] Dakota Tatum MD Unavailable Unava ilable Dakota Tatum MD Unavailable Unava ilable Srinivas Marie Unavailable +[phone] Johanne Gutierrez Salome RN Unavailable +[phone] Linda Ambriz Gallito [facility] Unavailable +[phone] Reason for Visit * Reason Onset Date Comments Refill Request 03/03/2014 Encounter Details Date Type Department Care Team (Late st Contact Info) Description 03/03/2014 MyC Refill [address], [address] [place] [address] [place] [address] [place] [address] Refill Request Social History Tobacco Use Types Packs/Day Years Used Date Smoking Tobacco: Former Cigarettes Q uit: 06/21/1973 Smokeless Tobacco: Former Alcohol Use Standard Drinks/Week Comments Yes 0 (1 standard drink = 0.6 oz pur e alcohol) rarely Comments No Sex and Gender Information Value Date Recorded Sex Assigned at Female 08/17/2018 7:56 AM DOMESTIC LAUNDRY WORKER Legal Sex Female 4:24 AM DOMESTIC LAUNDRY WORKER Gender Identity Female 08/17/2018 7:56 AM DOMESTIC LAUNDRY WORKER Sexual Orientation Straight 08/17/2018 7: 56 AM DOMESTIC LAUNDRY WORKER documented as of this encounter Plan of Treatment Upcoming Encounters Date Type Department Care Team (Late st Contact Info) Description 06/28/2025 3:00 PM DOMESTIC LAUNDRY WORKER Office Visit M [address] [place] [address] Fransisco Eddy MD [address] [place] [address] documented as of this encounter Visit Diagnoses Not on filedocumented in this encounter Additional Health Concerns Infection Onset Date Last Indicated Resolved Time Rule Out COVID-19 05/08/2021 05/08/2021 05/09/2021 9:08 PM DOMESTIC LAUNDRY WORKER documented as of this encounter Care Teams Glove Tagger Relationship Specialty Start Date End Date Esperanza Gatica MD PCP - General Family Practice 10/13/11 12/29/21 [place] [address] LISBETH GARCIA [address] PCP - Assigned PCP 12/05/17 08/23/18 Alfreda Ray PA-C [address] [place] [address] PCP - General Family Medicine 12/30/21 [place] [address] LISBETH GARCIA 25389 Assigned PCP 12/05/17 09/30/19 [place] [address] L[place]B[address] GARCIA 58293 Assigned PCP 10/01/19 03/02/20 [place] [address] LISB[address] GARCIA 88377 Assigned PCP 03/03/20 05/25/20 [place] [address] LISB[address] GARCIA 83376 Assigned PCP 05/26/20 09/28/20 [place] [address] LISBETH GARCIA 86529 Assigned PCP 09/29/20 07/31/22 Jesú[place] [address] [place] [address] [address] Assigned Musculoskeletal Provider 10/20/20 04/17/22 Alfreda Ray PA-C [address] [place] [address] Referring Physician Family Medicine 12/31/21 Katrin Orellana PA-C [address] [place] [address] Physician On Call Dermatology 12/31/21 Shanna Vang PA-C [address] [place] [address] Assigned Cancer Care Provider 01/10/22 Fransisco Eddy MD [address] [place] [address] Assigned Rheumatology Provider 05/09/22 [place] [address] LISBETH GARCIA 56685 Assigned Pain Medication Provider 06/29/22 09/04/22 [place] [address] LISB[address] GARCIA 47684 Assigned PCP 08/15/22 08/28/22 Katrin Orellana PA-C [address] [place] [address] 28[address] Assigned Surgical Provider 08/15/22 02/10/24 Cristina Hsieh [place] [address] [place] [address] [place] [address] Pharmacist Pharmacist 09/07/22 Alfreda Ray PA-C [address] [place] [address] 158002 Assigned Pain Medication Provider 09/05/22 09/10/23 Alfreda Ray PA-C [address] [place] [address] 688702 Assigned PCP 08/29/22 Cristina Hsieh [facility] [address] [address] Assigned MTM Pharmacist 09/26/22 Dakota Tatum MD [address] [address] Cardiovascular Disease 03/25/23 Dakota Tatum MD Assigned Heart and Vascular Provider 05/01/23 11/09/24 [place] [address] [address] Assigned Musculoskeletal Provider 04/12/24 Johanne Gutierrez, RN RN Clinical Product Navigator Primary Care - CC 08/18/24 08/18/24 Linda Ambriz, [facility] Lead Cardroom Attendant 08/18/24 08/23/24 documented as of this encounter
--- OUTSIDE RECORDS SUMMARY | 2025-02-24 20:52 | XMS_ITS | Encounter Summary ---
Author Organization [facility] Address [address] [place] [address] Care Team Providers Care Soap Press Feeder Name Role Phone Esperanza Gatica MD Primary Care Provider + Esperanza Gatica MD Unavailable +[phone] Esperanza Gatica MD Unavailable +198 Esperanza Gatica MD Unavailable +693 Esperanza Gatica MD Unavailable +060 Esperanza Gatica MD Unavailable +000 Esperanza Gatica MD Unavailable +[phone] Jesús Orourke MD Unavailable Alfreda RayC Primary Care Provider + Alfreda Ray PA-C Unavailable +- [phone] Katrin Orellana PA-C Unavailable +[phone] Shanna VangC Unavailable +[phone] Fransisco Eddy MD Unavailable +[phone] Esperanza Gatica MD Unavailable +[phone] Esperanza Gatica MD Unavailable +[phone] Katrin Orellana PA-C Unavailable Cristina Hsieh [facility] Unavailable +[phone] Cory Alfreda Liu PA-C Unavailable +[phone] Cory Alfreda Liu PA-C Unavailable +[phone] Cristina Hsieh [facility] Unavailable +[phone] Dakota Tatum MD Unavailable Unava ilable Dakota Tatum MD Unavailable Unava ilable Srinivas Marie Unavailable +[phone] Brenda Johanne Salome RN Unavailable [phone] [place] Gallito [facility] Unavailable [phone] Reason for Visit * Reason Onset Date Comments Refill Request 07/02/2014 Tramadol 50mg Encounter Details Date Type Department Care Team (Late st Contact Info) Description 07/02/2014 MyC Medical Advice [address], [address] [place] [address] [place] [address] [place] [address] Refill Request (Tramadol 50mg) Social History Tobacco Use Types Packs/Day Years Used Date Smoking Tobacco: Former Cigarettes Q uit: 06/21/1973 Smokeless Tobacco: Former Alcohol Use Standard Drinks/Week Comments Yes 0 (1 standard drink = 0.6 oz pur e alcohol) rarely Comments No Sex and Gender Information Value Date Recorded Sex Assigned at Female 08/17/2018 7:56 AM ENROLLER Legal Sex Female 4:24 AM ENROLLER Gender Identity Female 08/17/2018 7:56 AM ENROLLER Sexual Orientation Straight 08/17/2018 7: 56 AM ENROLLER documented as of this encounter Miscellaneous Notes * Telephone Encounter - Leigha Rinaldi, TIFFANIE - 07/03/2014 9:13 AM CST Pending Prescriptions: Disp Refills traMADol (ULTRAM) 50 MG tablet 30 tab*0 Sig: Take 1 tablet (50 mg) by mouth every 6 hours as needed for pain Last OV: 03/29/2014 Reason: IBS Last filled: 06/04/2014 #30 Leigha Rinaldi RN LLER documented in this encounter Plan of Treatment Upcoming Encounters Date Type Department Care Team (Late st Contact Info) Description 06/28/2025 3:00 PM ENROLLER Office Visit [facility] [address] [place] [phone] Fransisco Eddy MD [address] [place] [address] documented as of this encounter Visit Diagnoses Diagnosis HTN (hypertension), benign- Primary Essential hypertension, benign documented in this encounter Additional Health Concerns Infection Onset Date Last Indicated Resolved Time Rule Out COVID-19 05/08/2021 05/08/2021 05/09/2021 9:08 PM ENROLLER documented as of this encounter Care Teams Soap Press Feeder Relationship Specialty Start Date End Date Esperanza Gatica MD PCP - General Family Practice 10/13/11 12/29/21 [place] [address] LISBETH GARCIA [address] PCP - Assigned PCP 12/05/17 08/23/18 Alfreda Ray PA-C [address] [place] [address] PCP - General Family Medicine 12/30/21 [place] [address] LISB[address] GARCIA 27599 Assigned PCP 12/05/17 09/30/19 [place] [address] [place] [address] Assigned PCP 10/01/19 03/02/20 [place] [address] [place] [address] Assigned PCP 03/03/20 05/25/20 [place] [address] [place] [address] Assigned PCP 05/26/20 09/28/20 [place] [address] [place] [address] Assigned PCP 09/29/20 07/31/22 [place] [address] [facility] [place] [address] Assigned Musculoskeletal Provider 10/20/20 04/17/22 Alfreda Ray PA-C [address] [place] [address] 605932 Referring Physician Family Medicine 12/31/21 Katrin Orellana PA-C [address] [place] [address] 192985 Physician Bd Special Education Teacher Dermatology 12/31/21 Shanna Vang PA-C [address] [place] [address] 891384 Assigned Cancer Care Provider 01/10/22 Fransisco Eddy MD [address] [place] [address] Assigned Rheumatology Provider 05/09/22 [place] [address] [place] [address] Assigned Pain Medication Provider 06/29/22 09/04/22 [place] [address] [place] [address] Assigned PCP 08/15/22 08/28/22 Katrin Orellana PA-C [address] [place] [address] Assigned Surgical Provider 08/15/22 02/10/24 Cristina Hsieh [facility] [address] [place] [address] Pharmacist Pharmacist 09/07/22 Alfreda Ray PA-C [address] [place] [address] Assigned Pain Medication Provider 09/05/22 09/10/23 Alfreda Ray PA-C [address] [place] [address] Assigned PCP 08/29/22 Cristina Hsieh [facility] [address] [address] Assigned MTM Pharmacist 09/26/22 Dakota Tatum MD [address] [facility] [address] [place] [address] Cardiovascular Disease 03/25/23 Dakota Tatum MD Assigned Heart and Vascular Provider 05/01/23 11/09/24 [place] [address] [address], [facility] [address] [place] [address] Assigned Musculoskeletal Provider 04/12/24 Johanne Gutierrez RN RN Clinical Product Navigator Primary Care - CC 08/18/24 08/18/24 Linda Ambriz, [facility] Lead Director Part 08/18/24 08/23/24 documented as of this encounter
--- OUTSIDE RECORDS SUMMARY | 2025-02-24 20:52 | XMS_ITS | Encounter Summary ---
Author Organization [facility] Address [address] [place] [address] Care Team Providers Care C Wpf Developer Name Role Phone Esperanza Gatica MD Primary Care Provider + Esperanza Gatica MD Unavailable +[phone] Esperanza Gatica MD Unavailable +[phone] Esperanza Gatica MD Unavailable +539 Esperanza Gatica MD Unavailable +128 Esperanza Gatica MD Unavailable +620 Esperanza Gatica MD Unavailable +[phone] Jesús Orourke MD Unavailable Alfreda RayC Primary Care Provider + Alfreda Ray PA-C Unavailable +- [phone] Katrin Orellana PA-C Unavailable +[phone] Shanna VangC Unavailable +[phone] Fransisco Eddy MD Unavailable +[phone] Esperanza Gatica MD Unavailable +[phone] Esperanza Gatica MD Unavailable +[phone] Katrin Orellana PA-C Unavailable Cristina Hsieh [facility] Unavailable +[phone] Cory Alfreda Liu PA-C Unavailable +[phone] Cory Alfreda Liu PA-C Unavailable +[phone] Cristina Hsieh [facility] Unavailable +[phone] Dakota Tatum MD Unavailable Unava ilable Dakota Tatum MD Unavailable Unava ilable Cynthia, Srinivas Unavailable [phone] Brenda Johanne Salome [facility] Unavailable [phone] Mariana Ambrizie Gallito [facility] Unavailable +[phone] Reason for Visit * Reason Onset Date Comments Refill Request 09/23/2013 Lisinopril-HCTZ Encounter Details Date Type Department Care Team (Late st Contact Info) Description 09/23/2013 MyC Refill [address], [address] [place] [address] [place] [address] [place] [address] Refill Request (Lisinopril-HCTZ) Social History Tobacco Use Types Packs/Day Years Used Date Smoking Tobacco: Former Cigarettes Q uit: 06/21/1973 Smokeless Tobacco: Former Alcohol Use Standard Drinks/Week Comments Yes 0 (1 standard drink = 0.6 oz pur e alcohol) rarely Comments No Sex and Gender Information Value Date Recorded Sex Assigned at Female 08/17/2018 7:56 AM RAILROAD CAR LOADER Legal Sex Female 4:24 AM RAILROAD CAR LOADER Gender Identity Female 08/17/2018 7:56 AM RAILROAD CAR LOADER Sexual Orientation Straight 08/17/2018 7: 56 AM RAILROAD CAR LOADER documented as of this encounter Miscellaneous Notes * Telephone Encounter - Leigha Rinaldi RN - 09/25/2013 7:51 AM CDT DIURETICS [...] RN - 09/25/2013 7:51 AM [facility] Original authorizing provider: MD Alexandria Triplett would like a refill of the following medications: lisinopril-hydrochlorothiazide (PRINZIDE,ZESTORETIC) 10-12.5 MG per tablet [Royer Brumfield MD] Preferred pharmacy: [id number] Comment: Sent from my iPad documented in this encounter Plan of Treatment Upcoming Encounters Date Type Department Care Team (Late st Contact Info) Description 06/28/2025 3:00 PM RAILROAD CAR LOADER Office Visit [facility] [address] [address] Fransisco Eddy MD [address] [place] [address] [phone] documented as of this encounter Visit Diagnoses Diagnosis HTN (hypertension), benign- Primary Essential hypertension, benign documented in this encounter Additional Health Concerns Infection Onset Date Last Indicated Resolved Time Rule Out COVID-19 05/08/2021 05/08/2021 05/09/2021 9:08 PM RAILROAD CAR LOADER documented as of this encounter Care Teams C Wpf Developer Relationship Specialty Start Date End Date Esperanza Gatica MD PCP - General Family Practice 10/13/11 12/29/21 [place] [address] [place] [address] PCP - Assigned PCP 12/05/17 08/23/18 Alfrdea Ray PA-C [address] [place] [address] PCP - General Family Medicine 12/30/21 [place] [address] [place] [address] Assigned PCP 12/05/17 09/30/19 [place] [address] [place] [address] Assigned PCP 10/01/19 03/02/20 [place] [address] [place] [address] Assigned PCP 03/03/20 05/25/20 [place] [address] [place] [address] Assigned PCP 05/26/20 09/28/20 [place] [address] [place] [address] Assigned PCP 09/29/20 07/31/22 [place] [address] [place] [address] Assigned Musculoskeletal Provider 10/20/20 04/17/22 Alfreda Ray PA-C [address] [place] [address] Referring Physician Family Medicine 12/31/21 Katrin Orellana PA-C [address] [place] [address] Physician Professor Of Philosophy Dermatology 12/31/21 Shanna Vang PA-C [address] [place] [address] Assigned Cancer Care Provider 01/10/22 Fransisco Eddy MD [address] [place] [address] Assigned Rheumatology Provider 05/09/22 [place] [address] [facility] [place] [address] Assigned Pain Medication Provider 06/29/22 09/04/22 [place] [address] [place] [address] Assigned PCP 08/15/22 08/28/22 Katrin Orellana PA-C [address] [place] [address] Assigned Surgical Provider 08/15/22 02/10/24 Cristina Hsieh [facility] [address] [place] [address] [place] [address] Pharmacist Pharmacist 09/07/22 Alfreda Ray PA-C [address] [place] [address] [place] [address] Assigned Pain Medication Provider 09/05/22 09/10/23 Alfreda Ray PA-C [address] [place] [address] Assigned PCP 08/29/22 Cristina Hsieh, [facility] [address] [address] Assigned MTM Pharmacist 09/26/22 Dakota Tatum MD [address] [address] Cardiovascular Disease 03/25/23 Dakota Tatum MD Assigned Heart and Vascular Provider 05/01/23 11/09/24 [place] [address] [place] , [address] [address] Assigned Musculoskeletal Provider 04/12/24 Johanne Gutierrez, RN RN Clinical Product Navigator Primary Care - CC 08/18/24 08/18/24 Linda Ambriz, [facility] Lead Hot Frame Tender 08/18/24 08/23/24 documented as of this encounter
--- OUTSIDE RECORDS SUMMARY | 2025-02-24 20:52 | XMS_ITS | Encounter Summary ---
Author Organization [facility] Address [address] [place] [address] Care Team Providers Care Behavior Support Specialist Name Role Phone Esperanza Gatica MD Primary Care Provider + Esperanza Gatica MD Unavailable +262 Esperanza Gatica MD Unavailable +759 Esperanza Gatica MD Unavailable +684 Esperanza Gatica MD Unavailable +[phone] Esperanza Gatica MD Unavailable +127 Esperanza Gatica MD Unavailable +[phone] Jesús Orourke MD Unavailable Alfreda RayC Primary Care Provider + Alfreda Ray PA-C Unavailable +- [phone] Katrin Orellana PA-C Unavailable +[phone] Shanna VangC Unavailable +[phone] Fransisco Eddy MD Unavailable +[phone] Esperanza Gatica MD Unavailable +[phone] Esperanza Gatica MD Unavailable +[phone] Katrin Orellana PA-C Unavailable Cristina Hsieh [facility] Unavailable +[phone] Alfreda Ray PA-C Unavailable +[phone] Cory Alfreda Liu PA-C Unavailable +[phone] Cristina Hsieh [facility] Unavailable +[phone] Dakota Tatum MD Unavailable Unava ilable Dakota Tatum MD Unavailable Unava ilable CynthiaSrinivas Unavailable +[phone] Brenda Johanne Salome RN Unavailable [phone] Mariana Ambrizie Gallito [facility] Unavailable +[phone] Reason for Visit * Reason Onset Date Comments Refill Request 11/25/2012 tramadol 50 MG Encounter Details Date Type Department Care Team (Late st Contact Info) Description 11/25/2012 MyC Refill [address] [address] [place] [address] [place], [place] 1122668 Refill Request (tramadol 50 MG) Social History Tobacco Use Types Packs/Day Years Used Date Smoking Tobacco: Former Cigarettes Q uit: 06/21/1973 Smokeless Tobacco: Former Alcohol Use Standard Drinks/Week Comments Yes 0 (1 standard drink = 0.6 oz pur e alcohol) rarely Comments No Sex and Gender Information Value Date Recorded Sex Assigned at Female 08/17/2018 7:56 AM PROGRAM DIRECTOR Legal Sex Female 4:24 AM PROGRAM DIRECTOR Gender Identity Female 08/17/2018 7:56 AM PROGRAM DIRECTOR Sexual Orientation Straight 08/17/2018 7: 56 AM PROGRAM DIRECTOR documented as of this encounter Miscellaneous Notes * Telephone Encounter - Diane Macedo - 11/25/2012 9:48 AM CDT Does not meet standard requirement for RN refill protocol. Medication: tramadol 50 MG Last OV: 11/08/12 Reason for visit: Osteoarthritis Last refill: 10/28/12 #30 Please refill if appropriate. Thank you! Diane Macedo RN [facility] Work Force * Telephone Encounter - Diane Macedo - 11/25/2012 9:47 AM CDTMessage from MyChart: Original authorizing provider: MD Alexandria Brannon would like a refill of the following medications: traMADol (ULTRAM) 50 MG tablet [Esperanza Gatica MD] Preferred pharmacy: [id number] - [address] Comment: Sent from my 20:20 Mobilehone documented in this encounter Plan of Treatment Upcoming Encounters Date Type Department Care Team (Late st Contact Info) Description 06/28/2025 3:00 PM PROGRAM DIRECTOR Office Visit [facility] [address] [phone] Fransisco Eddy MD [address] [place] [address] [phone] documented as of this encounter Visit Diagnoses Diagnosis Knee pain Pain in joint, lower leg documented in this encounter Additional Health Concerns Infection Onset Date Last Indicated Resolved Time Rule Out COVID-19 05/08/2021 05/08/2021 05/09/2021 9:08 PM PROGRAM DIRECTOR documented as of this encounter Care Teams Behavior Support Specialist Relationship Specialty Start Date End Date Esperanza Gatica MD PCP - General Family Practice 10/13/11 12/29/21 [place] [address] [place] [address] PCP - Assigned PCP 12/05/17 08/23/18 Alfreda Ray PA-C [address] [place] [address] PCP - General Family Medicine 12/30/21 [place] [address] [place] [address] Assigned PCP 12/05/17 09/30/19 [place] [address] [place] [address] Assigned PCP 10/01/19 03/02/20 [place] [address] [place] [address] Assigned PCP 03/03/20 05/25/20 [place] [address] [place] [address] Assigned PCP 05/26/20 09/28/20 [place] [address] [place] [address] Assigned PCP 09/29/20 07/31/22 [place] [address] [place] [address] Assigned Musculoskeletal Provider 10/20/20 04/17/22 Alfreda Ray PA-C [address] [place] [address] Referring Physician Family Medicine 12/31/21 Katrin Orellana PA-C [address] [place] [address] Physician Body Technician/Painter Dermatology 12/31/21 Shanna Vang PA-C [address] [place] [address] Assigned Cancer Care Provider 01/10/22 Fransisco Eddy MD [address] [place] [address] Assigned Rheumatology Provider 05/09/22 [place] [address] [place] [address] Assigned Pain Medication Provider 06/29/22 09/04/22 [place] [address] [address] [place] [address] Assigned PCP 08/15/22 08/28/22 Katrin Orellana PA-C [address] [place] [address] Assigned Surgical Provider 08/15/22 02/10/24 Cristina Hsieh, [facility] [address] [place] [address] [place] [address] Pharmacist Pharmacist 09/07/22 Alfreda Ray PA-C [address] [place] [address] Assigned Pain Medication Provider 09/05/22 09/10/23 Alfreda Ray PA-C [address] [place] [address] Assigned PCP 08/29/22 Cristina Hsieh, [facility] [address] [address] Assigned MTM Pharmacist 09/26/22 Dakota Tatum MD [address] [address] Cardiovascular Disease 03/25/23 Dakota Tatum MD Assigned Heart and Vascular Provider 05/01/23 11/09/24 [place] [address] [place] , [address] [address] Assigned Musculoskeletal Provider 04/12/24 Johanne Gutierrez, RN RN Clinical Product Navigator Primary Care - CC 08/18/24 08/18/24 Linda Ambriz, [facility] Lead Refund Specialist 08/18/24 08/23/24 documented as of this encounter
--- OUTSIDE RECORDS SUMMARY | 2025-02-24 20:52 | XMS_ITS | Encounter Summary ---
Author Organization [place] Address [address] [place] [address] Care Team Providers Care Application Support Developer Name Role Phone Esperanza Gatica MD Primary Care Provider + Esperanza Gatica MD Unavailable +[phone] Esperanza Gatica MD Unavailable +[phone] Esperanza Gatica MD Unavailable +[phone] Esperanza Gatica MD Unavailable +[phone] Esperanza Gatica MD Unavailable +[phone] Esperanza Gatica MD Unavailable +[phone] Jesús Orourke MD Unavailable Alfreda RayC Primary Care Provider + Alfreda Ray PA-C Unavailable +- [phone] Katrin Orellana PA-C Unavailable +[phone] Shanna VangC Unavailable +[phone] Fransisco Eddy MD Unavailable +[phone] Esperanza Gatica MD Unavailable +[phone] Esperanza Gatica MD Unavailable +[phone] Katrin Orellana PA-C Unavailable Cristina Hsieh [facility] Unavailable +[phone] Cory Alfreda Liu PA-C Unavailable +[phone] Cory Alfreda Liu PA-C Unavailable +[phone] Cristina Hsieh [facility] Unavailable +[phone] Dakota Tatum MD Unavailable Unava ilable Dakota Tatum MD Unavailable Unava ilable Srinivas Marie Unavailable +[phone] Brenda Johanne Salome RN Unavailable [phone] Pb [place] Gallito [facility] Unavailable +[phone] Reason for Visit * Reason Onset Date Comments Refill Request 05/06/2014 Tramadol 50mg Encounter Details Date Type Department Care Team (Late st Contact Info) Description 05/06/2014 MyC Refill [address], [address] [place] [address] [place] [address] [place] [address] Refill Request (Tramadol 50mg) Social History Tobacco Use Types Packs/Day Years Used Date Smoking Tobacco: Former Cigarettes Q uit: 06/21/1973 Smokeless Tobacco: Former Alcohol Use Standard Drinks/Week Comments Yes 0 (1 standard drink = 0.6 oz pur e alcohol) rarely Comments No Sex and Gender Information Value Date Recorded Sex Assigned at Female 08/17/2018 7:56 AM LATEX FASHIONS DESIGNER Legal Sex Female 4:24 AM LATEX FASHIONS DESIGNER Gender Identity Female 08/17/2018 7:56 AM LATEX FASHIONS DESIGNER Sexual Orientation Straight 08/17/2018 7: 56 AM LATEX FASHIONS DESIGNER documented as of this encounter Miscellaneous Notes * Telephone Encounter - Leigha Rinaldi RN - 05/07/2014 2:40 PM CST Pending Prescriptions: Disp Refills traMADol (ULTRAM) 50 MG tablet 30 tab*0 Sig: Take 1 tablet (50 mg) by mouth every 6 hours as needed for pain Last OV: 03/29/2014 Reason: IBS Last filled: 04/09/2014 #30 Leigha Rinaldi RN X FASHIONS DESIGNER * Telephone Encounter - Leigha Rinaldi RN - 05/07/2014 2:39 PM CSTMessage from MyChart: Original authorizing provider: MD Alexandria Brannon Zenobia Leeann would like a refill of the following medications: traMADol (ULTRAM) 50 MG tablet [Esperanza Gatica MD] Preferred pharmacy: [facility] #[id number] - [address] Comment: X FASHIONS DESIGNER documented in this encounter Plan of Treatment Upcoming Encounters Date Type Department Care Team (Late st Contact Info) Description 06/28/2025 3:00 PM LATEX FASHIONS DESIGNER Office Visit [facility] [address] [phone] Fransisco Eddy MD [address] [place] [place] [address] [phone] documented as of this encounter Visit Diagnoses Diagnosis HTN (hypertension), benign Essential hypertension, benign documented in this encounter Additional Health Concerns Infection Onset Date Last Indicated Resolved Time Rule Out COVID-19 05/08/2021 05/08/2021 05/09/2021 9:08 PM LATEX FASHIONS DESIGNER documented as of this encounter Care Teams Application Support Developer Relationship Specialty Start Date End Date Esperanza Gatica MD PCP - General Family Practice 10/13/11 12/29/21 [place] [address] [place] [address] PCP - Assigned PCP 12/05/17 08/23/18 Alfreda Ray PA-C [address] [place] [address] PCP - General Family Medicine 12/30/21 [place] [address] [address] GARCIA [address] Assigned PCP 12/05/17 09/30/19 [place] [address] [place] [address] Assigned PCP 10/01/19 03/02/20 [place] [address] LIS[address] GARCIA [address] Assigned PCP 03/03/20 05/25/20 [place] [address] [address] [place], L[place]BETH [address] Assigned PCP 05/26/20 09/28/20 [place] [address] [address] GARCIA [address] Assigned PCP 09/29/20 07/31/22 [place] [address] [place] [address] Assigned Musculoskeletal Provider 10/20/20 04/17/22 Alfreda Ray PA-C [address] [place] [address] Referring Physician Family Medicine 12/31/21 Katrin Orellana PA-C [address] [place] [address] Physician Macadam Raker Dermatology 12/31/21 Shanna Vang PA-C [address] [place] [address] Assigned Cancer Care Provider 01/10/22 Fransisco Edyd MD [address] [place] [address] Assigned Rheumatology Provider 05/09/22 [place] [address] [place] [address] Assigned Pain Medication Provider 06/29/22 09/04/22 [place] [address] [address] [place] [address] Assigned PCP 08/15/22 08/28/22 Katrin Orellana PA-C [address] [place] [address] Assigned Surgical Provider 08/15/22 02/10/24 Cristina Hsieh [facility] [address] [place] [address] [place] [address] Pharmacist Pharmacist 09/07/22 lAfreda Ray PA-C [address] [place] [address] Assigned Pain Medication Provider 09/05/22 09/10/23 Alfreda Ray PA-C [facility] [place] [address] Assigned PCP 08/29/22 Cristina Hsieh, [facility] [address] [address] Assigned MTM Pharmacist 09/26/22 Dakota Tatum MD [address] [address] Cardiovascular Disease 03/25/23 Dakota Tautm MD Assigned Heart and Vascular Provider 05/01/23 11/09/24 [place] [address] [address] , [address] [address] Assigned Musculoskeletal Provider 04/12/24 Johanne Gutierrez, RN RN Clinical Product Navigator Primary Care - CC 08/18/24 08/18/24 Linda Ambriz, [facility] Lead Plastics And Composites Inspector 08/18/24 08/23/24 documented as of this encounter
--- OUTSIDE RECORDS SUMMARY | 2025-02-24 20:52 | XMS_ITS | Encounter Summary ---
Author Organization [place] Address [address] [place] [address] Care Team Providers Care Forge Hand Name Role Phone Esperanza Gatica MD Primary Care Provider + Esperanza Gatica MD Unavailable +[phone] Esperanza Gatica MD Unavailable +[phone] Esperanza Gatica MD Unavailable +[phone] Esperanza Gatica MD Unavailable +650 Esperanza Gatica MD Unavailable +162 Esperanza Gatica MD Unavailable +[phone] Jesús Orourke MD Unavailable Alfreda RayC Primary Care Provider + Alfreda Ray PA-C Unavailable +- [phone] Katrin Orellana PA-C Unavailable +[phone] Shanna VangC Unavailable +[phone] Fransisco Eddy MD Unavailable +[phone] Esperanza Gatica MD Unavailable +[phone] Esperanza Gatica MD Unavailable +[phone] Katrin Orellana PA-C Unavailable Cristina Hsieh [facility] Unavailable +[phone] Cory Alfreda Liu PA-C Unavailable +[phone] Ho Raymustapha Liu PA-C Unavailable +[phone] Cristina Hsieh [facility] Unavailable +[phone] Dakota Tatum MD Unavailable Unava ilable Dakota Tatum MD Unavailable Unava ilable Srinivas Marie Unavailable +[phone] Brenda Johanne Salome [facility] Unavailable [phone] Linda Ambriz Gallito [facility] Unavailable +[phone] Reason for Visit * Reason Onset Date Comments Refill Request 11/06/2012 Ambien 10mg Encounter Details Date Type Department Care Team (Late st Contact Info) Description 11/06/2012 MyC Refill [address], [address] [place] [address] [place] [address] [place], [place] [phone] Refill Request (Ambien 10mg) Social History Tobacco Use Types Packs/Day Years Used Date Smoking Tobacco: Former Cigarettes Q uit: 06/21/1973 Smokeless Tobacco: Former Alcohol Use Standard Drinks/Week Comments Yes 0 (1 standard drink = 0.6 oz pur e alcohol) rarely Comments No Sex and Gender Information Value Date Recorded Sex Assigned at Female 08/17/2018 7:56 AM COMPOUNDER STERILE PRODUCTS Legal Sex Female 4:24 AM COMPOUNDER [employer] Gender Identity Female 08/17/2018 7:56 AM COMPOUNDER [employer] Sexual Orientation Straight 08/17/2018 7: 56 AM COMPOUNDER [employer] documented as of this encounter Miscellaneous Notes [...] pharmacy: [facility] #[id number] - [address] [place] [address] Comment: Sent from my iPad documented in this encounter Plan of Treatment Upcoming Encounters Date Type Department Care Team (Late st Contact Info) Description 06/28/2025 3:00 PM COMPOUNDER [employer] Office Visit [facility] [address] [phone] Fransisco Eddy MD [address] [place] [address] [phone] documented as of this encounter Visit Diagnoses Diagnosis Insomnia, unspecified documented in this encounter Additional Health Concerns Infection Onset Date Last Indicated Resolved Time Rule Out COVID-19 05/08/2021 05/08/2021 05/09/2021 9:08 PM COMPOUNDER [employer] documented as of this encounter Care Teams Forge Hand Relationship Specialty Start Date End Date Esperanza Gatica MD PCP - General Family Practice 10/13/11 12/29/21 [place] [address] [place] [address] PCP - Assigned PCP 12/05/17 08/23/18 Alfreda Ray PA-C [address] [place] [address] PCP - General Family Medicine 12/30/21 [place] [address] [place] [address] Assigned PCP 12/05/17 09/30/19 [place] [address] [place] [address] Assigned PCP 10/01/19 03/02/20 [place] [address] [place] [address] Assigned PCP 03/03/20 05/25/20 [place] [address] [place] [address] Assigned PCP 05/26/20 09/28/20 [place] [address] [place] [address] Assigned PCP 09/29/20 07/31/22 [place] [address] [place] [address] Assigned Musculoskeletal Provider 10/20/20 04/17/22 Alfreda Ray PA-C [address] [place] [address] 198482 Referring Physician Family Medicine 12/31/21 Katrin rOellana PA-C [address] [address] Physician Button Bradder Dermatology 12/31/21 Shanna Vang PA-C [address] [place] [address] Assigned Cancer Care Provider 01/10/22 Fransisco Eddy MD [address] [place] [address] 88 [place] [address] Assigned Rheumatology Provider 05/09/22 [place] [address] [place] [address] Assigned Pain Medication Provider 06/29/22 09/04/22 [place] [address] [place] [address] Assigned PCP 08/15/22 08/28/22 Katrin Orellana PA-C [address] [place] [address] 98 [place], [place] 760975 Assigned Surgical Provider 08/15/22 02/10/24 Cristina Hsieh, [facility] [address] [place] [address] LISBETH HERNANDEZ [address] Pharmacist Pharmacist 09/07/22 Alfreda Ray PA-C [address] [place] [address] 398692 Assigned Pain Medication Provider 09/05/22 09/10/23 Alfreda Ray PA-C [address] [place] [address] Assigned PCP 08/29/22 Cristina Hsieh, [facility] [address] [address] Assigned MTM Pharmacist 09/26/22 Dakota Tatum MD [address] [address] Cardiovascular Disease 03/25/23 Dakota Tatum MD Assigned Heart and Vascular Provider 05/01/23 11/09/24 [place] [address] CE[address], [address] [address] Assigned Musculoskeletal Provider 04/12/24 Johanne Gutierrez RN TIFFANIE Clinical Product Navigator Primary Care - CC 08/18/24 08/18/24 Linda Ambriz, EMERGENCY REGISTRAR Lead Restaurant Hospitality Manager 08/18/24 08/23/24 documented as of this encounter
--- OUTSIDE RECORDS SUMMARY | 2025-02-24 20:52 | XMS_ITS | Encounter Summary ---
Author Organization [place] Address [address] [place] [address] Care Team Providers Care Contact Lens Inspector Name Role Phone Esperanza Gatica MD Primary Care Provider + Esperanza Gatica MD Unavailable +562 Esperanza Gatica MD Unavailable +005 Esperanza Gatica MD Unavailable +143 Esperanza Gatica MD Unavailable +457 Esperanza Gatica MD Unavailable +473 Esperanza Gatica MD Unavailable +[phone] Jesús Orourke MD Unavailable Alfreda RayC Primary Care Provider + Alfreda Ray PA-C Unavailable +- [phone] Katrin Orellana PA-C Unavailable [phone] Shanna VangC Unavailable +[phone] Fransisco Eddy MD Unavailable +[phone] Esperanza Gatica MD Unavailable +[phone] Esperanza Gatica MD Unavailable +[phone] Katrin Orellana PA-C Unavailable Cristina Hsieh [facility] Unavailable +[phone] Cory Alfreda Liu PA-C Unavailable +[phone] Ho Raymustapha Liu PA-C Unavailable +[phone] Cristina Hsieh [facility] Unavailable +[phone] Dakota Tatum MD Unavailable Unava ilable Dakota Tatum MD Unavailable Unava ilable Srinivas Marie Unavailable +[phone] Brenda Johanne Salome RN Unavailable [phone] PbLinda Gallito [facility] Unavailable [phone] Reason for Visit * Reason Onset Date Comments Refill Request 10/23/2012 Zocor 20mg Encounter Details Date Type Department Care Team (Late st Contact Info) Description 10/23/2012 MyC Refill [address], [address] [place] [address] [place] [address] [facility] [place], [place] [phone] Refill Request (Zocor 20mg) Social History Tobacco Use Types Packs/Day Years Used Date Smoking Tobacco: Former Cigarettes Q uit: 06/21/1973 Smokeless Tobacco: Former Alcohol Use Standard Drinks/Week Comments Yes 0 (1 standard drink = 0.6 oz pur e alcohol) rarely Comments No Sex and Gender Information Value Date Recorded Sex Assigned at Female 08/17/2018 7:56 AM TECHNICAL MAINTENANCE TECHNICIAN Legal Sex Female 4:24 AM TECHNICAL MAINTENANCE TECHNICIAN Gender Identity Female 08/17/2018 7:56 AM TECHNICAL MAINTENANCE TECHNICIAN Sexual Orientation Straight 08/17/2018 7: 56 AM TECHNICAL MAINTENANCE TECHNICIAN documented as of this encounter [...] Rinaldi - 10/24/2012 7:44 AM CDTMessage from [employer]: Original authorizing provider: MD Alexandria Brannon would like a refill of the following medications: simvastatin (ZOCOR) 20 MG tablet [Esperanza Gatica MD] Preferred pharmacy: [id number] Comment: Sent from [employer] documented in this encounter Plan of Treatment Upcoming Encounters Date Type Department Care Team (Late st Contact Info) Description 06/28/2025 3:00 PM TECHNICAL MAINTENANCE TECHNICIAN Office Visit [facility] [address] [phone] Fransisco Eddy MD [address] [place] [address] 926395 documented as of this encounter Visit Diagnoses Diagnosis Hyperlipidemia LDL goal <160- Primary Other and unspecified hyperlipidemia documented in this encounter Additional Health Concerns Infection Onset Date Last Indicated Resolved Time Rule Out COVID-19 05/08/2021 05/08/2021 05/09/2021 9:08 PM TECHNICAL MAINTENANCE TECHNICIAN documented as of this encounter Care Teams Contact Lens Inspector Relationship Specialty Start Date End Date Esperanza Gatica MD PCP - General Family Practice 10/13/11 12/29/21 [place] [address] [place] [address] PCP - Assigned PCP 12/05/17 08/23/18 Alfreda Ray PA-C [address] [place] [address] PCP - General Family Medicine 12/30/21 [place] [address] [place] [address] Assigned PCP 12/05/17 09/30/19 [place] [address] [place] [address] Assigned PCP 10/01/19 03/02/20 [place] [address] [place] [address] Assigned PCP 03/03/20 05/25/20 [place] [address] [place] [address] Assigned PCP 05/26/20 09/28/20 [place] [address] [place] [address] Assigned PCP 09/29/20 07/31/22 [place] [address] [place] [place] [address] Assigned Musculoskeletal Provider 10/20/20 04/17/22 Alfreda Ray PA-C [address] [place] [address] Referring Physician Family Medicine 12/31/21 Katrin Orellana PA-C [address] [place] [address] 842965 Physician Sewage Treatment Plant Operator Dermatology 12/31/21 Shanna Vang PA-C [address] [place] [address] 150654 Assigned Cancer Care Provider 01/10/22 Fransisco Eddy MD [address] [place] [address] Assigned Rheumatology Provider 05/09/22 [place] [address] [place] [address] Assigned Pain Medication Provider 06/29/22 09/04/22 [place] [address] [place] [address] Assigned PCP 08/15/22 08/28/22 Katrin Orellana PA-C [address] [place] [address] Assigned Surgical Provider 08/15/22 02/10/24 Cristina Hsieh [facility] [address] [place] [address] Pharmacist Pharmacist 09/07/22 Alfreda Ray PA-C [address] [place] [address] Assigned Pain Medication Provider 09/05/22 09/10/23 Alfreda Ray PA-C [address] [place] [address] 967612 Assigned PCP 08/29/22 Cristina Hsieh, [facility] [address] [facility] [address] [place] [address] Assigned MTM Pharmacist 09/26/22 Dakota Tatum MD [address] [address] Cardiovascular Disease 03/25/23 Dakota Tatum MD Assigned Heart and Vascular Provider 05/01/23 11/09/24 [place] [address] [facility] [address] [place] [address] Assigned Musculoskeletal Provider 04/12/24 Johanne Gutierrez, RN RN Clinical Product Navigator Primary Care - CC 08/18/24 08/18/24 Linda Ambriz, [facility] Lead Edging Machine Catcher 08/18/24 08/23/24 documented as of this encounter
--- OUTSIDE RECORDS SUMMARY | 2025-02-24 20:53 | XMS_ITS | Encounter Summary ---
Author Organization [place] Address [address] [place] [address] Care Team Providers Care Loan Interviewer Mortgage Name Role Phone Esperanza Gatica MD Primary Care Provider + Esperanza Gatica MD Unavailable + Jesús Orourke MD Unavailable Alfreda Ray-C Primary Care Provider + Alfreda RayC Unavailable +2607 Katrin Orellana PA-C Unavailable +[phone] Shanna Vang PA-C Unavailable +[phone] Fransisco Eddy MD Unavailable +[phone] Esperanza Gatica MD Unavailable + Esperanza Gatica MD Unavailable +16 Katrin OrellanaC Unavailable +[phone] Cristina Hsieh [facility] Unavailable +[phone] Alfreda Ray PA-C Unavailable +[phone] Alfreda Ray PA-C Unavailable +[phone] Cristina Hsieh [facility] Unavailable [phone] Dakota Tatum MD Unavailable Unava ilDakota Padgett MD Unavailable Unava brittneySrinivas Yun DO Unavailable +[phone] Johanne Gutierrez RN Unavailable [phone] Linda Ambriz [facility] Unavailable +[phone] Reason for Visit * Reason Onset Date Comments Hip Pain 01/17/2021 Encounter Details Date Type Department Care Team (Late st Contact Info) Description 01/17/2021 MyC Medical Advice [facility] [address] [place] [address] [place] [address] [place] [address] Hip Pain Social History Tobacco [...] Sex Assigned at Female 08/17/2018 7:56 AM FIRST ASSISTANT Legal Sex Female 4:24 AM FIRST ASSISTANT Gender Identity Female 08/17/2018 7:56 AM FIRST ASSISTANT Sexual Orientation Straight 08/17/2018 7: 56 AM FIRST ASSISTANT COVID-19 Exposure Response Date Recorded In the [...] st Contact Info) Description 06/28/2025 3:00 PM FIRST ASSISTANT Office Visit [facility] [address] [place] [phone] Fransisco Eddy MD [address] [place] [address] 499605 documented as of this encounter Visit Diagnoses Not on filedocumented in this encounter Additional Health Concerns Infection Onset Date Last Indicated Resolved Time Rule Out COVID-19 05/08/2021 05/08/2021 05/09/2021 9:08 PM FIRST ASSISTANT Assessment Noted Time PHQ-9 Depression Total Score: 0 08/31/19 21 11:22 AM FIRST ASSISTANT documented as of this encounter Care Teams Loan Interviewer Mortgage Relationship Specialty Start Date End Date Esperanza Gatica MD PCP - General Family Practice 10/13/11 12/29/21 Alfreda Ray PA-C [address] [place] [address] PCP - General Family Medicine 12/30/21 [place] [address] [place] [address] Assigned PCP 09/29/20 07/31/22 [place] [address] [place] [address] Assigned Musculoskeletal Provider 10/20/20 04/17/22 Alfreda Ray PA-C [address] [place] [address] Referring Physician Family Medicine 12/31/21 Katrin Orellana PA-C [address] [address] Physician Dinkey Operator Slate Dermatology 12/31/21 Shanna Vang PA-C [facility] [address] 851354 Assigned Cancer Care Provider 01/10/22 Fransisco Eddy MD [address] [place] [address] 122475 Assigned Rheumatology Provider 05/09/22 [place] [address] [address] GARCIA [address] Assigned Pain Medication Provider 06/29/22 09/04/22 [place] [address] [address] [address] Assigned PCP 08/15/22 08/28/22 Katrin Orellana PA-C [address] [place] [address] 233485 Assigned Surgical Provider 08/15/22 02/10/24 Cristina Hsieh, [facility] [address] [facility] L[place]BETH HERNANDEZ [address] Pharmacist Pharmacist 09/07/22 Alfreda Ray PA-C [address] [place] [address] Assigned Pain Medication Provider 09/05/22 09/10/23 Alfreda Ray PA-C [address] [place] [address] Assigned PCP 08/29/22 Cristina Hsieh, [facility] [address] [facility] [address] [place] [address] Assigned MTM Pharmacist 09/26/22 Dakota Tatum MD 1600 [facility] [address] [place] [address] Cardiovascular Disease 03/25/23 Dakota Tatum MD Assigned Heart and Vascular Provider 05/01/23 11/09/24 [place] [address] [address], [facility] [address] [place] [address] Assigned Musculoskeletal Provider 04/12/24 Johanne Gutierrez RN TIFFANIE Clinical Product Navigator Primary Care - CC 08/18/24 08/18/24 Linda Ambriz, [facility] Lead Hazmat Technician 08/18/24 08/23/24 documented as of this encounter
--- OUTSIDE RECORDS SUMMARY | 2025-02-24 20:53 | XMS_ITS | Encounter Summary ---
Author Organization [place] Address [address] [place] [address] Care Team Providers Care Glove Boarder Name Role Phone Esperanza Gatica MD Primary Care Provider + Esperanza Gatica MD Unavailable + Jesús Orourke MD Unavailable Alfreda Ray-C Primary Care Provider + Alfreda RayC Unavailable +[phone] Katrin Orellana PA-C Unavailable +[phone] Shanna Vang PA-C Unavailable +[phone] Fransisco Eddy MD Unavailable +[phone] Esperanza Gatica MD Unavailable + Esperanza Gatica MD Unavailable +51 Katrin OrellanaC Unavailable +[phone] Cristina Hsieh [facility] Unavailable +[phone] Alfreda Ray PA-C Unavailable +[phone] Alfreda Ray PA-C Unavailable +[phone] Cristina Hsieh [facility] Unavailable +[phone] Dakota Tatum MD Unavailable Unava ilDakota Padgett MD Unavailable Unava brittneySrinivas Yun DO Unavailable +[phone] Johanne Gutierrez RN Unavailable +[phone] Linda Ambriz [facility] Unavailable +- [phone] Encounter Details Date Type Department Care Team (Late st Contact Info) Description 01/02/2021 MyC Medical Advice [facility] [address] [place] [address] [place] [address] [place] [address] Social History Tobacco Use Types [...] Sex Assigned at Female 08/17/2018 7:56 AM VB NET DEVELOPER Legal Sex Female 4:24 AM VB NET DEVELOPER Gender Identity Female 08/17/2018 7:56 AM VB NET DEVELOPER Sexual Orientation Straight 08/17/2018 7: 56 AM VB NET DEVELOPER COVID-19 Exposure Response Date Recorded In the last month, have you been in contact with someone who was confirmed or suspected to have Coronavirus / COVID-19? No / Unsure 12/31/2020 8:35 AM CDT documented as of this encounter Plan of Treatment Upcoming Encounters Date Type Department Care Team (Late Contact Info) Description 06/28/2025 3:00 PM VB NET DEVELOPER Office Visit [facility] [place] [address] [facility] 200 [place] [address] Fransisco Eddy MD [address] [place] [address] documented as of this encounter Visit Diagnoses Not on filedocumented in this encounter Additional Health Concerns Infection Onset Date Last Indicated Resolved Time Rule Out COVID-19 05/08/2021 05/08/2021 05/09/2021 9:08 PM VB NET DEVELOPER Assessment Noted Time PHQ-9 Depression Total Score: 0 08/31/19 21 11:22 AM VB NET DEVELOPER documented as of this encounter Care Teams Glove Boarder Relationship Specialty Start Date End Date Esperanza Gatica MD PCP - General Family Practice 10/13/11 12/29/21 Alfreda Ray PA-C [address] [place] [address] 961992 PCP - General Family Medicine 12/30/21 [place] [address] [place] [address] Assigned PCP 09/29/20 07/31/22 [place] [address] [place] [facility] [place], [place] 991717 Assigned Musculoskeletal Provider 10/20/20 04/17/22 Alfreda Ray PA-C [address] [place] [address] 038732 Referring Physician Family Medicine 12/31/21 Katrin Orellana PA-C [address] [place] [address] 181435 Physician Truck Technician Dermatology 12/31/21 Shanna Vang PA-C [address] [place] [address] 088754 Assigned Cancer Care Provider 01/10/22 Fransisco Eddy MD [address] [place] [address] 88 [place] [address] Assigned Rheumatology Provider 05/09/22 [place] [address] [place] [address] Assigned Pain Medication Provider 06/29/22 09/04/22 [place] [address] [place] [address] Assigned PCP 08/15/22 08/28/22 Katrin Orellana PA-C [address] [place] [address] Assigned Surgical Provider 08/15/22 02/10/24 Cristina Hsieh [facility] [address] [facility] [place] [address] Pharmacist Pharmacist 09/07/22 Alfreda Ray PA-C [address] [place] [address] Assigned Pain Medication Provider 09/05/22 09/10/23 Alfreda Ray PA-C [address] [place] [address] Assigned PCP 08/29/22 Cristina Hsieh [facility] [address] [phone] Assigned MTM Pharmacist 09/26/22 Dakota Tatum MD [address] [facility] 101 [place] [address] Cardiovascular Disease 03/25/23 Dakota Tatum MD Assigned Heart and Vascular Provider 05/01/23 11/09/24 [place] [address] [address], [facility] 300 [place] [address] Assigned Musculoskeletal Provider 04/12/24 Johanne Gutierrez RN RN Clinical Product Navigator Primary Care - CC 08/18/24 08/18/24 Linda Ambriz, [facility] Lead Digital Media Associate 08/18/24 08/23/24 documented as of this encounter
--- OUTSIDE RECORDS SUMMARY | 2025-02-24 20:53 | XMS_ITS | Encounter Summary ---
Author Organization [place] Address [address] [place] [address] Care Team Providers Care Political Organizer Name Role Phone Esperanza Gatica MD Primary Care Provider + Esperanza Gatica MD Unavailable + Jesús Orourke MD Unavailable Alfreda Ray-C Primary Care Provider + Alfreda RayC Unavailable +[phone] Katrin Orellana PA-C Unavailable +[phone] Shanna Vang PA-C Unavailable +[phone] Fransisco Eddy MD Unavailable +[phone] Esperanza Gatica MD Unavailable + Esperanza Gatica MD Unavailable +37 Katrin OrellanaC Unavailable +[phone] Cristina Hsieh [facility] Unavailable +[phone] Alfreda Ray PA-C Unavailable +260 Alfreda Ray PA-C Unavailable +2600 Cristina Hsieh [facility] Unavailable +[phone] Dakota Tatum MD Unavailable Unava ilDakota Padgett MD Unavailable Unava brittneySrinivas Yun DO Unavailable +[phone] Johanne Gutierrez RN Unavailable [phone] Linda Ambriz [facility] Unavailable [phone] Encounter Details Date Type Department Care Team (Late st Contact Info) Description 11/28/2020 MyC Medical Advice [facility] [address] [place] [address] [place] [address] [place] [address] Social History Tobacco Use Types [...] Sex Assigned at Female 08/17/2018 7:56 AM SOLAR INSTALLATION FOREMAN Legal Sex Female 4:24 AM SOLAR INSTALLATION FOREMAN Gender Identity Female 08/17/2018 7:56 AM SOLAR INSTALLATION FOREMAN Sexual Orientation Straight 08/17/2018 7: 56 AM SOLAR INSTALLATION FOREMAN COVID-19 Exposure Response Date Recorded In the last month, have you been in contact with someone who was confirmed or suspected to have Coronavirus / COVID-19? No / Unsure 11/12/2020 1:17 PM CDT documented as of this encounter Plan of Treatment Upcoming Encounters Date Type Department Care Team (Late st Contact Info) Description 06/28/2025 3:00 PM SOLAR INSTALLATION FOREMAN Office Visit [facility] [place] [address] [facility] [address] [place] [address] Fransisco Eddy MD [address] [place] [address] documented as of this encounter Visit Diagnoses Not on filedocumented in this encounter Additional Health Concerns Infection Onset Date Last Indicated Resolved Time Rule Out COVID-19 05/08/2021 05/08/2021 05/09/2021 9:08 PM SOLAR INSTALLATION FOREMAN Assessment Noted Time PHQ-9 Depression Total Score: 0 08/31/19 21 11:22 AM SOLAR INSTALLATION FOREMAN documented as of this encounter Care Teams Political Organizer Relationship Specialty Start Date End Date Esperanza Gatica MD PCP - General Family Practice 10/13/11 12/29/21 Alfreda Ray PA-C [address] [place] [address] 714432 PCP - General Family Medicine 12/30/21 [place] [address] [place] [address] Assigned PCP 09/29/20 07/31/22 Jesú[place] [address] 575157 Assigned Musculoskeletal Provider 10/20/20 04/17/22 Alfreda Ray PA-C [address] [place] [address] 022852 Referring Physician Family Medicine 12/31/21 Katrin Orellana PA-C [address] [place] [address] [phone] Physician Vice President Of Marketing Dermatology 12/31/21 Shanna Vang PA-C [address] [place] [address] 535934 Assigned Cancer Care Provider 01/10/22 Fransisco Eddy MD [address] [place] [address] 88 [place] [address] Assigned Rheumatology Provider 05/09/22 [place] [address] [place] [address] Assigned Pain Medication Provider 06/29/22 09/04/22 [place] [address] [place] [address] Assigned PCP 08/15/22 08/28/22 Katrin Orellana PA-C [address] [place] [address] Assigned Surgical Provider 08/15/22 02/10/24 Cristina Hsieh [facility] [address] [facility] [place] [address] Pharmacist Pharmacist 09/07/22 Alfreda Ray PA-C [address] [place] [address]105 Assigned Pain Medication Provider 09/05/22 09/10/23 Alfreda Ray PA-C [address] [place] [address] Assigned PCP 08/29/22 Cristina Hsieh [facility] [address] [address] Assigned MTM Pharmacist 09/26/22 Dakota Tatum MD 1600 [facility] 101 [place] [address] Cardiovascular Disease 03/25/23 Dakota Tatum MD Assigned Heart and Vascular Provider 05/01/23 11/09/24 [place] [address] [address], [facility] 300 [place] [address] Assigned Musculoskeletal Provider 04/12/24 Johanne Gutierrez RN RN Clinical Product Navigator Primary Care - CC 08/18/24 08/18/24 Linda Ambriz, [facility] Lead Special Investigation Unit Investigator 08/18/24 08/23/24 documented as of this encounter
--- OUTSIDE RECORDS SUMMARY | 2025-02-24 20:53 | XMS_ITS | Encounter Summary ---
Author Organization [place] Address [address] [place] [address] Care Team Providers Care Cad Programmer Name Role Phone Esperanza Gatica MD Primary Care Provider + Esperanza Gatica MD Unavailable + Jesús Orourke MD Unavailable Alfreda Ray-C Primary Care Provider + Alfreda RayC Unavailable +260 Katrin Orellana PA-C Unavailable +[phone] Shanna Vang PA-C Unavailable +[phone] Fransisco Eddy MD Unavailable +[phone] Esperanza Gatica MD Unavailable + Esperanza Gatica MD Unavailable +55 Katrin OrellanaC Unavailable +[phone] Cristina Hsieh [facility] Unavailable +[phone] Alfreda Ray PA-C Unavailable +260 Alfreda Ray PA-C Unavailable +2600 Cristina Hsieh [facility] Unavailable +[phone] Dakota Tatum MD Unavailable Unava ilDakota Padgett MD Unavailable Unava ilSrinivas Yun DO Unavailable [phone] Johanne Gutierrez RN Unavailable [phone] Linda Ambriz [facility] Unavailable [phone] Encounter Details Date Type Department Care Team (Late st Contact Info) Description 03/03/2021 MyC Medical Advice [facility] [address] [place] [address] [place] [address] [place] [address] Social History Tobacco Use Types [...] Sex Assigned at Female 08/17/2018 7:56 AM HOSE TURNER Legal Sex Female 4:24 AM HOSE TURNER Gender Identity Female 08/17/2018 7:56 AM HOSE TURNER Sexual Orientation Straight 08/17/2018 7: 56 AM HOSE TURNER COVID-19 Exposure Response Date Recorded In the last month, have you been in contact with someone who was confirmed or suspected to have Coronavirus / COVID-19? No / Unsure 02/27/2021 10:56 AM CDT documented as of this encounter Miscellaneous Notes * Telephone Encounter - So Mathur RN - 03/03/2021 4:49 PM CDT Will forward to Dr. Gatica - see [facility] documented in this encounter Plan of Treatment Upcoming Encounters Date Type Department Care Team (Late Contact Info) Description 06/28/2025 3:00 PM HOSE TURNER Office Visit [address] [phone] Fransisco Eddy MD [address] [place] [address] documented as of this encounter Visit Diagnoses Not on filedocumented in this encounter Additional Health Concerns Infection Onset Date Last Indicated Resolved Time Rule Out COVID-19 05/08/2021 05/08/2021 05/09/2021 9:08 PM HOSE TURNER Assessment Noted Time PHQ-9 Depression Total Score: 0 08/31/19 11:22 AM HOSE TURNER documented as of this encounter Care Teams Cad Programmer Relationship Specialty Start Date End Date Esperanza Gatica MD PCP - General Family Practice 10/13/11 12/29/21 Alfreda Ray PA-C [address] [place] [address] [id number] PCP - General Family Medicine 12/30/21 [place] [address] [facility] [place] [address] Assigned PCP 09/29/20 07/31/22 Jesú[place] [address] [place] [address] Assigned Musculoskeletal Provider 10/20/20 04/17/22 Alfreda Ray PA-C [address] [place] [address] Referring Physician Family Medicine 12/31/21 Katrin Orellana PA-C [address] [place] [address] Physician Branch Operations Coordinator Dermatology 12/31/21 Shanna Vang PA-C [address] [place] [address] Assigned Cancer Care Provider 01/10/22 Fransisco Eddy MD [address] [place] [address] 894805 Assigned Rheumatology Provider 05/09/22 [place] [address] [place] [address] Assigned Pain Medication Provider 06/29/22 09/04/22 [place] [address] [place] [address] Assigned PCP 08/15/22 08/28/22 Katrin Orellana PA-C [address] [place] [address] Assigned Surgical Provider 08/15/22 02/10/24 Cristina Hsieh [facility] [address] [place] [address] [place] [address] Pharmacist Pharmacist 09/07/22 Alfreda Ray PA-C [address] [place] [address] 540292 Assigned Pain Medication Provider 09/05/22 09/10/23 Alfreda Ray PA-C [address] [place] [address] Assigned PCP 08/29/22 Cristina Hsieh, [facility] [address] [address] Assigned MTM Pharmacist 09/26/22 Dakota Tatum MD [address] [address] Cardiovascular Disease 03/25/23 Dakota Tatum MD Assigned Heart and Vascular Provider 05/01/23 11/09/24 [place] [address] [address] Assigned Musculoskeletal Provider 04/12/24 Johanne Gutierrez RN RN Clinical Product Navigator Primary Care - CC 08/18/24 08/18/24 Linda Ambriz, [facility] Lead Fashion Journalist 08/18/24 08/23/24 documented as of this encounter
--- OUTSIDE RECORDS SUMMARY | 2025-02-24 20:53 | XMS_ITS | Encounter Summary ---
Author Organization [place] Address [address] [place] [address] Care Team Providers Care Ham Smoker Name Role Phone Esperanza Gatica MD Primary Care Provider + Esperanza Gatica MD Unavailable +[phone] Esperanza Gatica MD Unavailable +719 Esperanza Gatica MD Unavailable +857 Esperanza Gatica MD Unavailable +628 Esperanza Gatica MD Unavailable +476 Esperanza Gatica MD Unavailable +[phone] Jesús Orourke MD Unavailable Alfreda RayC Primary Care Provider + Alfreda Ray PA-C Unavailable +- [phone] Katrin Orellana PA-C Unavailable +[phone] Shanna VangC Unavailable +[phone] Fransisco Eddy MD Unavailable [phone] Esperanza Gatica MD Unavailable +[phone] Esperanza Gatica MD Unavailable +[phone] Katrin Orellana PA-C Unavailable Cristina Hsieh [facility] Unavailable +[phone] Cory Alfreda Liu PA-C Unavailable +[phone] Ho Raymustapha Liu PA-C Unavailable +[phone] Cristina Hsieh [facility] Unavailable +[phone] Dakota Tatum MD Unavailable Unava ilable Dakota Tatum MD Unavailable Unava ilable Srinivas Marie Unavailable +[phone] Brenda Johanne Salome [facility] Unavailable [phone] Linda Ambriz [facility] Unavailable [phone] Reason for Visit * Reason Onset Date Comments Sinus Problem 06/30/2016 Requesting antib iotic Encounter Details Date Type Department Care Team (Late st Contact Info) Description 06/30/2016 MyC Medical Advice [address], [address] [place] [address] [place] [address] [place] [address] Sinus Problem (Requesting antibiotic) Social History Tobacco [...] Sex Assigned at Female 08/17/2018 7:56 AM OILER HELPER Legal Sex Female 4:24 AM OILER HELPER Gender Identity Female 08/17/2018 7:56 AM OILER HELPER Sexual Orientation Straight 08/17/2018 7: 56 AM OILER HELPER documented as of this encounter Miscellaneous Notes * Telephone Encounter - Leigha Rinaldi RN - 06/30/2016 11:34 AM CST Called patient and advised Dr. Gatica would see her if she came over now. Leigha Rinaldi RN R HELPER * Telephone Encounter - Esperanza Gatica MD - 06/30/2016 9:03 AM OILER HELPER Recommend appointment with me. I recommend we do an exam, to double check ears, throat, lungs etc. cymbalta was started in feb and recommended follow up for that med, we can discuss this as well. Any way she can come in today? R HELPER documented in this encounter Plan of Treatment Upcoming Encounters Date Type Department Care Team (Late st Contact Info) Description 06/28/2025 3:00 PM OILER HELPER Office Visit [facility] [address] [phone] Fransisco Eddy MD [address] [place] [address] 389655 documented as of this encounter Visit Diagnoses Not on filedocumented in this encounter Additional Health Concerns Infection Onset Date Last Indicated Resolved Time Rule Out COVID-19 05/08/2021 05/08/2021 05/09/2021 9:08 PM OILER HELPER Assessment Noted Time PHQ-9 Depression Total Score: 0 08/14/19 16 8:10 AM OILER HELPER documented as of this encounter Care Teams Ham Smoker Relationship Specialty Start Date End Date Esperanza Gatica MD PCP - General Family Practice 10/13/11 12/29/21 [place] [address] [place] [address] PCP - Assigned PCP 12/05/17 08/23/18 Alfreda Ray PA-C [address] [place] [address] PCP - General Family Medicine 12/30/21 [place] [address] [address] [address] Assigned PCP 12/05/17 09/30/19 [place] [address] [address] [address] Assigned PCP 10/01/19 03/02/20 [place] [address] [address] [address] Assigned PCP 03/03/20 05/25/20 [place] [address] [address] [address] Assigned PCP 05/26/20 09/28/20 [place] [address] [address] [address] Assigned PCP 09/29/20 07/31/22 [place] [address] [place], [place] 448407 Assigned Musculoskeletal Provider 10/20/20 04/17/22 Alfreda Ray PA-C [address] [place] [address] 351672 Referring Physician Family Medicine 12/31/21 Katrin Orellana PA-C [address] [place] [address] [phone] Physician Behavioral Health Professional Dermatology 12/31/21 Shanna Vang PA-C [address] [place] [address] 923424 Assigned Cancer Care Provider 01/10/22 Fransisco Eddy MD [address] [place] [address] 103355 Assigned Rheumatology Provider 05/09/22 [place] [address] [place] [address] Assigned Pain Medication Provider 06/29/22 09/04/22 [place] [address] [place] [address] Assigned PCP 08/15/22 08/28/22 Katrin Orellana PA-C [address] [place] [address] Assigned Surgical Provider 08/15/22 02/10/24 Cristina Hsieh, [facility] [address] [place] [address] [place] [address] Pharmacist Pharmacist 09/07/22 Alfreda Ray PA-C [address] [place] [address] 308672 Assigned Pain Medication Provider 09/05/22 09/10/23 Alfreda Ray PA-C [address] [place] [address] 641562 Assigned PCP 08/29/22 Cristina Hsieh, [facility] [address] [address] Assigned MTM Pharmacist 09/26/22 Dakota Tatum MD [address] [address] Cardiovascular Disease 03/25/23 Dakota Tatum MD Assigned Heart and Vascular Provider 05/01/23 11/09/24 [place] [address] [address] Assigned Musculoskeletal Provider 04/12/24 Johanne Gutierrez RN TIFFANIE Clinical Product Navigator Primary Care - CC 08/18/24 08/18/24 Linda Ambriz, [facility] Lead Oil Pump Station Operator Chief 08/18/24 08/23/24 documented as of this encounter
--- OUTSIDE RECORDS SUMMARY | 2025-02-24 20:53 | XMS_ITS | Encounter Summary ---
Author Organization [place] Address [address] [place] [address] Care Team Providers Care Asphalt Spreader Operator Name Role Phone Esperanza Gatica MD Primary Care Provider + Esperanza Gatica MD Unavailable +[phone] Esperanza Gatica MD Unavailable +474 Esperanza Gatica MD Unavailable +[phone] Esperanza Gatica MD Unavailable +413 Esperanza Gatica MD Unavailable +072 Esperanza Gatica MD Unavailable +[phone] Jesús Orourke MD Unavailable Alfreda RayC Primary Care Provider + Alfreda Ray PA-C Unavailable +- [phone] Katrin Orellana PA-C Unavailable +[phone] Shanna VangC Unavailable +[phone] Fransisco Eddy MD Unavailable +[phone] Esperanza Gatica MD Unavailable +[phone] Esperanza Gatica MD Unavailable +[phone] Katrin Orellana PA-C Unavailable Cristina Hsieh [facility] Unavailable +[phone] Cory Alfreda Liu PA-C Unavailable +[phone] Ho Raymustapha Liu PA-C Unavailable +[phone] Cristina Hsieh [facility] Unavailable +[phone] Dakota Tatum MD Unavailable Unava ilable Dakota Tatum MD Unavailable Unava ilable Srinivas Marie Unavailable +[phone] Johanne Gutierrez Salome RN Unavailable +[phone] Linda Ambriz Gallito [facility] Unavailable +[phone] Reason for Visit * Reason Onset Date Comments Flu 08/19/2016 Flu like symptom s Encounter Details Date Type Department Care Team (Late st Contact Info) Description 08/19/2016 MyC Medical Advice [address], [address] [place] [address] [place] [address] [facility] [place] [place] [id number] Flu (Flu like symptoms) Social History Tobacco [...] Assigned at Female 08/17/2018 7:56 AM MACHINE STOPPAGE FREQUENCY CHECKER Legal Sex Female 4:24 AM MACHINE STOPPAGE FREQUENCY CHECKER Gender Identity Female 08/17/2018 7:56 AM MACHINE STOPPAGE FREQUENCY CHECKER Sexual Orientation Straight 08/17/2018 7: 56 AM MACHINE STOPPAGE FREQUENCY CHECKER documented as of this encounter Plan of Treatment Upcoming Encounters Date Type Department Care Team (Late st Contact Info) Description 06/28/2025 3:00 PM MACHINE STOPPAGE FREQUENCY CHECKER Office Visit [address] [place] [phone] Fransisco Eddy MD [address] [place] [address] documented as of this encounter Visit Diagnoses Not on filedocumented in this encounter Additional Health Concerns Infection Onset Date Last Indicated Resolved Time Rule Out COVID-19 05/08/2021 05/08/2021 05/09/2021 9:08 PM MACHINE STOPPAGE FREQUENCY CHECKER Assessment Noted Time PHQ-9 Depression Total Score: 0 08/18/19 17 7:09 AM MACHINE STOPPAGE FREQUENCY CHECKER documented as of this encounter Care Teams Asphalt Spreader Operator Relationship Specialty Start Date End Date Esperanza Gatica MD PCP - General Family Practice 10/13/11 12/29/21 [place] [address] LISB[address] GARCIA [address] PCP - Assigned PCP 12/05/17 08/23/18 Alfreda Ray PA-C [address] [place] [address] PCP - General Family Medicine 12/30/21 [place] [address] [place] GARCIA [address] Assigned PCP 12/05/17 09/30/19 [place] [address] [address]IA [address] Assigned PCP 10/01/19 03/02/20 [place] [address] LISB[place] GARCIA [address] Assigned PCP 03/03/20 05/25/20 [place] [address] [place] [address] Assigned PCP 05/26/20 09/28/20 [place] [address] [place] [address] Assigned PCP 09/29/20 07/31/22 Jesú[place] [address] [address] Assigned Musculoskeletal Provider 10/20/20 04/17/22 Alfreda Ray PA-C [address] [place] [address] [phone] Referring Physician Family Medicine 12/31/21 Katrin Orellana PA-C [address] [place] [address] 877145 Physician Medical Director/Head Team Physician Dermatology 12/31/21 Shanna Vang PA-C [address] [place] [address] [phone] Assigned Cancer Care Provider 01/10/22 Fransisco Eddy MD [address] [place] [address] 145685 Assigned Rheumatology Provider 05/09/22 [place] [address] [place] [address] Assigned Pain Medication Provider 06/29/22 09/04/22 [place] [address] [place] [address] Assigned PCP 08/15/22 08/28/22 Katrin Orellana PA-C [address] [place] [address] [id number] Assigned Surgical Provider 08/15/22 02/10/24 Cristina Hsieh [facility] [address] [place] [address] Pharmacist Pharmacist 09/07/22 Alfreda Ray PA-C [address] [place] [address] 841452 Assigned Pain Medication Provider 09/05/22 09/10/23 Alfreda Ray PA-C [address] [place] [address] 582232 Assigned PCP 08/29/22 Cristina Hsieh [facility] [address] [address] Assigned MTM Pharmacist 09/26/22 Dakota Tatum MD [address] [address] Cardiovascular Disease 03/25/23 Dakota Tatum MD Assigned Heart and Vascular Provider 05/01/23 11/09/24 [place] [address] [place] , [facility] [address] [place] [address] Assigned Musculoskeletal Provider 04/12/24 Johanne Gutierrez, RN RN Clinical Product Navigator Primary Care - CC 08/18/24 08/18/24 Linda Ambriz, [facility] Lead Dive Master 08/18/24 08/23/24 documented as of this encounter
--- OUTSIDE RECORDS SUMMARY | 2025-02-24 20:53 | XMS_ITS | Encounter Summary ---
Author Organization [place] Address [address] [place] [address] Care Team Providers Care Shank Boner Name Role Phone Esperanza Gatica MD Primary Care Provider + Esperanza Gatica MD Unavailable + Jesús Orourke MD Unavailable Alfreda Ray-C Primary Care Provider + Alfreda RayC Unavailable +[phone] Katrin Orellana PA-C Unavailable +[phone] Shanna Vang PA-C Unavailable +[phone] Fransisco Eddy MD Unavailable +[phone] Esperanza Gatica MD Unavailable + Esperanza Gatica MD Unavailable +35 Katrin OrellanaC Unavailable +[phone] Cristina Hsieh [facility] Unavailable +[phone] Alfreda Ray PA-C Unavailable +[phone] Alfreda Ray PA-C Unavailable +[phone] Cristina Hsieh [facility] Unavailable [phone] Dakota Tatum MD Unavailable Unava ilDakota Padgett MD Unavailable Unava brittneySrinivas Yun DO Unavailable +[phone] Johanne Gutierrez RN Unavailable +[phone] Linda Ambriz [facility] Unavailable [phone] Encounter Details Date Type Department Care Team (Late Contact Info) Description 06/16/2021 MyC Medical Advice [facility] [address] [place] [address] [place] [address] [place] [address] Social History Tobacco Use Types [...] at Female 08/17/2018 7:56 AM SOCIAL MEDIA CAMPAIGN MANAGER Legal Sex Female 4:24 AM SOCIAL MEDIA CAMPAIGN MANAGER Gender Identity Female 08/17/2018 7:56 AM SOCIAL MEDIA CAMPAIGN MANAGER Sexual Orientation Straight 08/17/2018 7: 56 AM SOCIAL MEDIA CAMPAIGN MANAGER documented as of this encounter Plan of Treatment Upcoming Encounters Date Type Department Care Team (Late Contact Info) Description 06/28/2025 3:00 PM SOCIAL MEDIA CAMPAIGN MANAGER Office Visit [address] [address] Fransisco Eddy MD [address] [place] [address] documented as of this encounter Visit Diagnoses Not on filedocumented in this encounter Additional Health Concerns Assessment Noted Time PHQ-9 Depression Total Score: 0 08/31/19 21 11:22 AM SOCIAL MEDIA CAMPAIGN MANAGER documented as of this encounter Care Teams Shank Boner Relationship Specialty Start Date End Date Esperanza Gatica MD PCP - General Family Practice 10/13/11 12/29/21 Alfreda Ray PA-C [address] [place] [address] 115992 PCP - General Family Medicine 12/30/21 [place] [address] [place] [address] Assigned PCP 09/29/20 07/31/22 Jesú[place] [address] [address] [facility] [place] [address] Assigned Musculoskeletal Provider 10/20/20 04/17/22 Alfreda Ray PA-C [address] [place] [address] 135082 Referring Physician Family Medicine 12/31/21 Katrin Orellana PA-C [address] [place] [address] Physician Word Processing Specialist Dermatology 12/31/21 Shanna Vang PA-C [address] [place] [address] 503014 Assigned Cancer Care Provider 01/10/22 Fransisco Eddy MD [address] [place] [address] 302805 Assigned Rheumatology Provider 05/09/22 [place] [address] [place] [address] Assigned Pain Medication Provider 06/29/22 09/04/22 [place] [address] [place] [address] Assigned PCP 08/15/22 08/28/22 Katrin Orellana PA-C [address] [place] [address] 21764 Assigned Surgical Provider 08/15/22 02/10/24 Cristina Hsieh [facility] [address] [facility] [place]BETH [place]Z [address] Pharmacist Pharmacist 09/07/22 Alfreda Ray PA-C [address] [place] [address] Assigned Pain Medication Provider 09/05/22 09/10/23 Alfreda Ray PA-C [address] [place] [address] Assigned PCP 08/29/22 Cristina Hsieh [facility] [address] [address] Assigned MTM Pharmacist 09/26/22 Dakota Tatum MD [address] [address] Cardiovascular Disease 03/25/23 Dakota Tatum MD Assigned Heart and Vascular Provider 05/01/23 11/09/24 [place] [address] [place], [address] [address] Assigned Musculoskeletal Provider 04/12/24 Johanne Gutierrez RN RN Clinical Product Navigator Primary Care - CC 08/18/24 08/18/24 Linda Ambriz, [facility] Lead Biological Plant Operator 08/18/24 08/23/24 documented as of this encounter
--- OUTSIDE RECORDS SUMMARY | 2025-02-24 20:53 | XMS_ITS | Encounter Summary ---
Author Organization [place] Address [address] [place] [address] Care Team Providers Care Police Surgeon Name Role Phone Esperanza Gatica MD Primary Care Provider + Esperanza Gatica MD Unavailable +126 Esperanza Gatica MD Unavailable +482 Esperanza Gatica MD Unavailable +667 Esperanza Gatica MD Unavailable +477 Esperanza Gatica MD Unavailable +134 Esperanza Gatica MD Unavailable +[phone] Jesús Orourke MD Unavailable Alfreda RayC Primary Care Provider + Alfreda Ray PA-C Unavailable +- [phone] Katrin Orellana PA-C Unavailable +[phone] Shanna VangC Unavailable +[phone] Fransisco Eddy MD Unavailable +[phone] Esperanza Gatica MD Unavailable +[phone] Esperanza Gatica MD Unavailable +[phone] Katrin Orellana PA-C Unavailable Cristina Hsieh [facility] Unavailable +[phone] Cory Alfreda Liu PA-C Unavailable +[phone] Ho Raymustapha Liu PA-C Unavailable +[phone] Cristina Hsieh [facility] Unavailable +[phone] Dakota Tatum MD Unavailable Unava ilable Dakota Tatum MD Unavailable Unava ilable CynthiaSrinivas Unavailable +[phone] Brenda Johanne Salome RN Unavailable [phone] Mariana Ambrizie Gallito [facility] Unavailable +[phone] Reason for Visit * Reason Onset Date Comments Refill Request 03/12/2016 Lisinopril-HCTZ Encounter Details Date Type Department Care Team (Late st Contact Info) Description 03/12/2016 MyC Refill [address], [address] [place] [address] [place] [address] [place] [address] Refill Request (Lisinopril-HCTZ) Social History [...] Assigned at Female 08/17/2018 7:56 AM SUPERVISOR STEFFEN HOUSE Legal Sex Female 4:24 AM SUPERVISOR STEFFEN HOUSE Gender Identity Female 08/17/2018 7:56 AM SUPERVISOR STEFFEN HOUSE Sexual Orientation Straight 08/17/2018 7: 56 AM SUPERVISOR STEFFEN HOUSE documented as of this encounter Miscellaneous Notes * Telephone Encounter - Leigha Rinaldi RN - 03/12/2016 11:44 AM CDT Lisinopril-HCTZ Last Written Prescription Date: 08/13/2015 Last Fill Quantity: 90, # refills: 1 Last Office Visit with [facility], [facility] or [facility] prescribing provider: 03/03/2016 POTASSIUM Date Value Ref Range Status 08/13/2015 3.9 3.4 - 5.3 mmol/L Final CREATININE Date Value Ref Range Status 08/13/2015 0.87 0.52 - 1.04 mg/dL Final BP Readings from Last 3 Encounters: 03/03/16 134/64 08/13/15 136/66 04/08/15 112/60 Prescription approved per [facility] Refill Protocol. Leigha Rinaldi RN * Telephone Encounter - Leigha Rinaldi RN - 03/12/2016 11:44 AM CDTMessage from [facility]: Original authorizing provider: MD Alexandria Brannon would like a refill of the following medications: lisinopril-hydrochlorothiazide (PRINZIDE,ZESTORETIC) 10-12.5 MG per tablet [Esperanza Gatica MD] Preferred pharmacy: [place], [place] - [address] [place] [address] Comment: documented in this encounter Plan of Treatment Upcoming Encounters Date Type Department Care Team (Late st Contact Info) Description 06/28/2025 3:00 PM SUPERVISOR STEFFEN HOUSE Office Visit [facility] [address] [address] Fransisco Eddy MD [address] [place] [address] documented as of this encounter Visit Diagnoses Diagnosis HTN (hypertension), benign Essential hypertension, benign documented in this encounter Additional Health Concerns Infection Onset Date Last Indicated Resolved Time Rule Out COVID-19 05/08/2021 05/08/2021 05/09/2021 9:08 PM SUPERVISOR STEFFEN HOUSE Assessment Noted Time PHQ-9 Depression Total Score: 0 08/14/19 16 8:10 AM SUPERVISOR STEFFEN HOUSE documented as of this encounter Care Teams Police Surgeon Relationship Specialty Start Date End Date Esperanza Gatica MD PCP - General Family Practice 10/13/11 12/29/21 [place] [address] [place] [address] PCP - Assigned PCP 12/05/17 08/23/18 Alfreda Ray PA-C [address] [place] [address], [place] [address] PCP - General Family Medicine 12/30/21 [place] [address] [place] [address] Assigned PCP 12/05/17 09/30/19 [place] [address] [place] [address] Assigned PCP 10/01/19 03/02/20 [place] [address] [place] [address] Assigned PCP 03/03/20 05/25/20 [place] [address] [place] [address] Assigned PCP 05/26/20 09/28/20 [place] [address] [place] [address] Assigned PCP 09/29/20 07/31/22 Jesú[place] [address] [place] [address] Assigned Musculoskeletal Provider 10/20/20 04/17/22 Alfreda Ray PA-C [address] [place] [address] [phone] Referring Physician Family Medicine 12/31/21 Katrin Orellana PA-C [address] [place] [address] 163385 Physician Contact Person Dermatology 12/31/21 Shanna Vang PA-C [address] [place] [address] 345924 Assigned Cancer Care Provider 01/10/22 Fransisco Eddy MD [address] [place] [address] 838435 Assigned Rheumatology Provider 05/09/22 [place] [address] [place] [address] Assigned Pain Medication Provider 06/29/22 09/04/22 [place] [address] [address] GARCIA [address] Assigned PCP 08/15/22 08/28/22 Katrin Orellana PA-C [address] [place] [address] 917345 Assigned Surgical Provider 08/15/22 02/10/24 Cristina Hsieh, [facility] [address] [facility] L[place]BETH [place]DEZ [address] Pharmacist Pharmacist 09/07/22 Alfreda Ray PA-C [address] [place] [address] 255032 Assigned Pain Medication Provider 09/05/22 09/10/23 Alfreda Ray PA-C [address] [place] [address] 642442 Assigned PCP 08/29/22 Cristina Hsieh, [facility] [address] [address] Assigned MTM Pharmacist 09/26/22 Dakota Tatum MD [address] [address] Cardiovascular Disease 03/25/23 Dakota Tatum MD Assigned Heart and Vascular Provider 05/01/23 11/09/24 [place] [address] [place] , [facility] [address] [place] [address] Assigned Musculoskeletal Provider 04/12/24 Johanne Gutierrez, RN RN Clinical Product Navigator Primary Care - CC 08/18/24 08/18/24 Linda Ambriz, [facility] Lead Hair Weaver 08/18/24 08/23/24 documented as of this encounter
--- OUTSIDE RECORDS SUMMARY | 2025-02-24 20:53 | XMS_ITS | Encounter Summary ---
Author Organization [place] Address [address] [place] [address] Care Team Providers Care Business English Instructor Name Role Phone Esperanza Gatica MD Primary Care Provider + Esperanza Gaitca MD Unavailable +[phone] Esperanza Gatica MD Unavailable +019 Esperanza Gatica MD Unavailable +268 Esperanza Gatica MD Unavailable +703 Esperanza Gatica MD Unavailable +143 Esperanza Gatica MD Unavailable +[phone] Jesús Orourke MD Unavailable Alfreda RayC Primary Care Provider + Alfreda Ray PA-C Unavailable +- [phone] Katrin Orellana PA-C Unavailable +[phone] Shanna VangC Unavailable +[phone] Fransisco Eddy MD Unavailable +[phone] Esperanza Gatica MD Unavailable +[phone] Esperanza Gatica MD Unavailable +[phone] Katrin Orellana PA-C Unavailable Cristina Hsieh [facility] Unavailable +[phone] Cory Alfreda Liu PA-C Unavailable +[phone] Ho Raymustapha Liu PA-C Unavailable +[phone] Cristina Hsieh [facility] Unavailable +[phone] Dakota Tatum MD Unavailable Unava ilable Dakota Tatum MD Unavailable Unava ilable Cynthia Srinivas Unavailable [phone] Brenda Johanne Salome RN Unavailable +[phone] Mariana Ambrizie Gallito [employer] WORK[employer] Unavailable [phone] Encounter Details Date Type Department Care Team (Late st Contact Info) Description 02/27/2015 MyC Medical Advice [address], [facility] [address] [place] [address] Fartun Silveira Social History Tobacco Use Types Packs/Day Years Used Date Smoking Tobacco: Former Cigarettes 1 5 0 06/21/1968 - 06/21/1973 Smokeless Tobacco: Former Alcohol Use Standard Drinks/Week Comments Yes 0 (1 standard drink = 0.6 oz pure alcohol) Very occasionally - 2 per month Comments No Sex and Gender Information Value Date Recorded Sex Assigned at Female 08/17/2018 7:56 AM ALL TERRAIN VEHICLE RACER Legal Sex Female 4:24 AM ALL TERRAIN VEHICLE RACER Gender Identity Female 08/17/2018 7:56 AM ALL TERRAIN VEHICLE RACER Sexual Orientation Straight 08/17/2018 7: 56 AM ALL TERRAIN VEHICLE RACER documented as of this encounter Plan of Treatment Upcoming Encounters Date Type Department Care Team (Late st Contact Info) Description 06/28/2025 3:00 PM ALL TERRAIN VEHICLE RACER Office Visit [address] [place] [address] Fransisco Eddy MD [address] [place] [address] documented as of this encounter Visit Diagnoses Not on filedocumented in this encounter Additional Health Concerns Infection Onset Date Last Indicated Resolved Time Rule Out COVID-19 05/08/2021 05/08/2021 05/09/2021 9:08 PM ALL TERRAIN VEHICLE RACER documented as of this encounter Care Teams Business English Instructor Relationship Specialty Start Date End Date Esperanza Gatica MD PCP - General Family Practice 10/13/11 12/29/21 [place] [address] LISB[address] GARCIA [address] PCP - Assigned PCP 12/05/17 08/23/18 Alfreda Ray PA-C [address] [place] [address] PCP - General Family Medicine 12/30/21 [place] [address] [place] [address]ARCIA [address] Assigned PCP 12/05/17 09/30/19 [place] [address] [place] GARCIA [address] Assigned PCP 10/01/19 03/02/20 [place] [address] [address] GARCIA [address] Assigned PCP 03/03/20 05/25/20 [place] [address] LISB[place] GARCIA [address] Assigned PCP 05/26/20 09/28/20 [place] [address] [place] [address] Assigned PCP 09/29/20 07/31/22 [place] [address] [place] [address] [place] [address] Assigned Musculoskeletal Provider 10/20/20 04/17/22 Alfreda Ray PA-C [address] [place] [address] 747032 Referring Physician Family Medicine 12/31/21 Katrin Orellana PA-C [address] [place] [address] Physician Collar Sewer Dermatology 12/31/21 Shanna Vang PA-C [address] [place] [address] Assigned Cancer Care Provider 01/10/22 Fransisco Eddy MD [address] [place] [address] Assigned Rheumatology Provider 05/09/22 [place] [address] [place] [address] Assigned Pain Medication Provider 06/29/22 09/04/22 [place] [address] [place] [address] Assigned PCP 08/15/22 08/28/22 Katrin Orellana PA-C [address] [address] Assigned Surgical Provider 08/15/22 02/10/24 Cristina Hsieh [facility] [address] [address] Pharmacist Pharmacist 09/07/22 Alfreda Ray PA-C [address] [place] [address] 888632 Assigned Pain Medication Provider 09/05/22 09/10/23 Alfreda Ray PA-C [address] [place] [address] 040642 Assigned PCP 08/29/22 Cristina Hsieh [facility] [address] [address] Assigned MTM Pharmacist 09/26/22 Dakota Tatum MD [address] [address] Cardiovascular Disease 03/25/23 Dakota Tatum MD Assigned Heart and Vascular Provider 05/01/23 11/09/24 [place] [address] [place], [address] [address] Assigned Musculoskeletal Provider 04/12/24 Johanne Gutierrez, RN RN Clinical Product Navigator Primary Care - CC 08/18/24 08/18/24 Linda Ambriz, [facility] Lead Tariff Inspector 08/18/24 08/23/24 documented as of this encounter
--- OUTSIDE RECORDS SUMMARY | 2025-02-24 20:53 | XMS_ITS | Encounter Summary ---
Author Organization [place] Address [address] [place] [address] Care Team Providers Care Shop Girl Name Role Phone Esperanza Gatica MD Primary Care Provider + Esperanza Gatica MD Unavailable + Jesús Orourke MD Unavailable Alfreda Ray-C Primary Care Provider + Alfreda RayC Unavailable +[phone] Katrin Orellana PA-C Unavailable +[phone] Shanna Vang PA-C Unavailable +[phone] Fransisco Eddy MD Unavailable +[phone] Esperanza Gatica MD Unavailable + Esperanza Gatica MD Unavailable +[phone] Katrin OrellanaC Unavailable +[phone] Cristina Hsieh [facility] Unavailable [phone] Alfreda Ray PA-C Unavailable +[phone] Alfreda Ray PA-C Unavailable +[phone] Cristina Hsieh [facility] Unavailable +[phone] Dakota Tatum MD Unavailable Unava ilDakota Padgett MD Unavailable Unava brittneySrinivas Yun DO Unavailable [phone] Johanne Gutierrez RN Unavailable [phone] Linda Ambriz [facility] Unavailable [phone] Encounter Details Date Type Department Care Team (Late st Contact Info) Description 01/02/2021 MyC Medical Advice [facility] [address] [place] [address] [place] [address] [place] [address] Social History Tobacco Use Types [...] Sex Assigned at Female 08/17/2018 7:56 AM ANY COMMODITY BUYER Legal Sex Female 4:24 AM ANY COMMODITY BUYER Gender Identity Female 08/17/2018 7:56 AM ANY COMMODITY BUYER Sexual Orientation Straight 08/17/2018 7: 56 AM ANY COMMODITY BUYER COVID-19 Exposure Response Date Recorded In the last month, have you been in contact with someone who was confirmed or suspected to have Coronavirus / COVID-19? No / Unsure 12/31/2020 8:35 AM CDT documented as of this encounter Plan of Treatment Upcoming Encounters Date Type Department Care Team (Late Contact Info) Description 06/28/2025 3:00 PM ANY COMMODITY BUYER Office Visit [facility] [place] 6525 [facility] 200 [place] [address] Fransisco Eddy MD [address] [place] [address] documented as of this encounter Visit Diagnoses Not on filedocumented in this encounter Additional Health Concerns Infection Onset Date Last Indicated Resolved Time Rule Out COVID-19 05/08/2021 05/08/2021 05/09/2021 9:08 PM ANY COMMODITY BUYER Assessment Noted Time PHQ-9 Depression Total Score: 0 08/31/19 21 11:22 AM ANY COMMODITY BUYER documented as of this encounter Care Teams Shop Girl Relationship Specialty Start Date End Date Esperanza Gatica MD PCP - General Family Practice 10/13/11 12/29/21 Alfreda Ray PA-C [address] [place] [address] 460562 PCP - General Family Medicine 12/30/21 [place] [address] [place] [address] Assigned PCP 09/29/20 07/31/22 Jesú[place] [address] [facility] [place], [place] 253067 Assigned Musculoskeletal Provider 10/20/20 04/17/22 Alfreda Ray PA-C [address] [place] [address] 489982 Referring Physician Family Medicine 12/31/21 Katrin Orellana PA-C [address] [place] [address] 998545 Physician Bag Cutter Dermatology 12/31/21 Shanna Vang PA-C [address] [place] [address] 423414 Assigned Cancer Care Provider 01/10/22 Fransisco Eddy MD [address] [place] [address] 88 [place] [address] Assigned Rheumatology Provider 05/09/22 [place] [address] [place] [address] Assigned Pain Medication Provider 06/29/22 09/04/22 [place] [address] [place] [address] Assigned PCP 08/15/22 08/28/22 Katrin Orellana PA-C [address] [place] [address] Assigned Surgical Provider 08/15/22 02/10/24 Cristina Hsieh [facility] 3305 [facility] LISBETH HERNANDEZ [address] Pharmacist Pharmacist 09/07/22 Alfreda Ray PA-C [address] [place] [address] Assigned Pain Medication Provider 09/05/22 09/10/23 Alfreda Ray PA-C [address] [place] [address]23 Assigned PCP 08/29/22 Cristina Hsieh [facility] [address] [phone] Assigned MTM Pharmacist 09/26/22 Dakota Tatum MD [address] [facility] [place] [address] [place] [address] Cardiovascular Disease 03/25/23 Dakota Tatum MD Assigned Heart and Vascular Provider 05/01/23 11/09/24 [place] [address] [address], [facility] 300 [place] [address] Assigned Musculoskeletal Provider 04/12/24 Johanne Gutierrez RN RN Clinical Product Navigator Primary Care - CC 08/18/24 08/18/24 Linda Ambriz, [facility] Lead Structural Architect 08/18/24 08/23/24 documented as of this encounter
--- OUTSIDE RECORDS SUMMARY | 2025-02-24 20:53 | XMS_ITS | Encounter Summary ---
Author Organization [place] Address [address] [place] [address] Care Team Providers Care Cook Chief Name Role Phone Alfreda Ray PA-C Primary Care Provider + Alfreda Ray PA-C Unavailable [phone] Katrin Orellana PA-C Unavailable [phone] Shanna Vang PA-C Unavailable +[phone] Fransisco Eddy MD Unavailable +[phone] Katrin Orellana PA-C Unavailable [phone] Cristina Hsieh [facility] Unavailable +[phone] Alfreda Ray PA-C Unavailable [phone] Alfreda Ray PA-C Unavailable [phone] Cristina Hsieh [facility] Unavailable +[phone] Dakota Tatum MD Unavailable Unava ilable Dakota Tatum MD Unavailable Unava ilable Srinivas Marie DO Unavailable [phone] Johanne Gutierrez RN Unavailable [phone] Linda Ambriz [facility] Unavailable [phone] Encounter Details Date Type Department Care Team (Late st Contact Info) Description 09/09/2023 [facility] [address] [place] [address] 105 [place] [address] Shanna Vang, PAFilemonC [address] [place] [address] Social History Tobacco Use Types Packs/Day Years [...] Sex Assigned at Female 08/17/2018 7:56 AM LOCOMOTIVE DRIVER Legal Sex Female 4:24 AM LOCOMOTIVE DRIVER Gender Identity Female 08/17/2018 7:56 AM LOCOMOTIVE DRIVER Sexual Orientation Straight 08/17/2018 7: 56 AM LOCOMOTIVE DRIVER documented as of this encounter Plan of Treatment Upcoming Encounters Date Type Department Care Team (Late st Contact Info) Description 06/28/2025 3:00 PM LOCOMOTIVE DRIVER Office Visit [facility] [address] [phone] Fransisco Eddy MD [address] [place] [address] [phone] documented as of this encounter Visit Diagnoses Not on filedocumented in this encounter Additional Health Concerns Assessment Noted Time PHQ-9 Depression Total Score: 5 03/09/20 23 10:57 AM CDT documented as of this encounter Care Teams Cook Chief Relationship Specialty Start Date End Date Alfreda Ray PA-C [address] [place] [address] PCP - General Family Medicine 12/30/21 Alfreda Ray PA-C [address] [place] [address] Referring Physician Family Medicine 12/31/21 Katrin Orellana PA-C [address] [place] [address] 98 [place], [place] 400735 Physician Glass Science Engineer Dermatology 12/31/21 Shanna Vang PA-C [address] [place] [address] 114584 Assigned Cancer Care Provider 01/10/22 Fransisco Eddy MD 515 [facility] 88 [place] [address] Assigned Rheumatology Provider 05/09/22 Katrin Orellana PA-C 420 [facility] 98 [place] [address] Assigned Surgical Provider 08/15/22 02/10/24 Cristina Hsieh [facility] [address] [facility] [place] [address] Pharmacist Pharmacist 09/07/22 Alfreda Ray PA-C [address] [place] [address] 524012 Assigned Pain Medication Provider 09/05/22 09/10/23 Alfreda Ray PA-C [address] [place] [address] 839912 Assigned PCP 08/29/22 Cristina Hsieh [facility] [address] [address] Assigned MTM Pharmacist 09/26/22 Dakota Tatum MD [address] [address] Cardiovascular Disease 03/25/23 Dakota Tatum MD Assigned Heart and Vascular Provider 05/01/23 11/09/24 [place] [address] [address], [address] [address] Assigned Musculoskeletal Provider 04/12/24 Johanne Gutierrez, RN RN Clinical Product Navigator Primary Care - CC 08/18/24 08/18/24 Linda Ambriz, [facility] Lead Dry House Tender 08/18/24 08/23/24 documented as of this encounter
--- OUTSIDE RECORDS SUMMARY | 2025-02-24 20:53 | XMS_ITS | Encounter Summary ---
Author Organization [place] Address [address] [place] [address] Care Team Providers Care Designer And Patternmaker Name Role Phone Alfreda Ray PA-C Primary Care Provider + Alfreda Ray PA-C Unavailable [phone] Katirn Orellana PA-C Unavailable [phone] Shanna Vang PA-C Unavailable [phone] Fransisco Eddy MD Unavailable +[phone] Katrin Orellana PA-C Unavailable [phone] Cristina Hsieh [facility] Unavailable +[phone] Alfreda Ray PA-C Unavailable +[phone] Alfreda Ray PA-C Unavailable +[phone] Cristina Hsieh [facility] Unavailable [phone] Dakota Tatum MD Unavailable Unava ilable Dakota Tatum MD Unavailable Unava ilable Srinivas Marie DO Unavailable [phone] Johanne Gutierrez RN Unavailable [phone] Linda Ambriz [facility] Unavailable [phone] Reason for Visit * Reason Onset Date Comments MyChart Communication 07/24/2023 Encounter Details Date Type Department Care Team (Late st Contact Info) Description 07/24/2023 MyC Medical Advice [address] [phone] Alfreda Ray PA-C [address] [place] [address] MyChart Communication Social History Tobacco Use Types [...] Sex Assigned at Female 08/17/2018 7:56 AM OPTICAL GOODS DRILLING MACHINE OPERATOR Legal Sex Female 4:24 AM OPTICAL GOODS DRILLING MACHINE OPERATOR Gender Identity Female 08/17/2018 7:56 AM OPTICAL GOODS DRILLING MACHINE OPERATOR Sexual Orientation Straight 08/17/2018 7: 56 AM OPTICAL GOODS DRILLING MACHINE OPERATOR documented as of this encounter Miscellaneous Notes * Telephone Encounter - Idania Stokes - 07/29/2023 11:40 AM CST Talked to patient who set up a virtual to do form with provider. VV was set up 08/19/23 Idania Mcmahon CAL GOODS DRILLING MACHINE OPERATOR * Telephone Encounter - Sarina Stevens - 07/29/2023 11:05 AM CST [employer] message sent to patient advising of Alfreda Ray's message below. CAL GOODS DRILLING MACHINE OPERATOR * Telephone Encounter - Alfreda Ray PA-C - 07/28/2023 4:46 PM OPTICAL GOODS DRILLING MACHINE OPERATOR Images from the original note were not included. Video or in person visit to document & complete paperwork. Please assist with scheduling. Can mail to her to take to DMV or mail in. Alfreda Ray MBA, MS, PAFilemonC [facility] CAL GOODS DRILLING MACHINE OPERATOR * Telephone Encounter - Fadumo Storey RN - 07/27/2023 12:58 PM CST Please see my chart message and advise. Thanks Does patient need appointment? In person or virtual? Last office visit was 05/25/23 CAL GOODS DRILLING MACHINE OPERATOR documented in this encounter Plan of Treatment Upcoming Encounters Date Type Department Care Team (Late st Contact Info) Description 06/28/2025 3:00 PM OPTICAL GOODS DRILLING MACHINE OPERATOR Office Visit [facility] Specialty [address] [place] [phone] Fransisco Eddy MD [address] [place] [address] documented as of this encounter Visit Diagnoses Not on filedocumented in this encounter Additional Health Concerns Assessment Noted Time PHQ-9 Depression Total Score: 5 03/09/20 23 10:57 AM CDT documented as of this encounter Care Teams Designer And Patternmaker Relationship Specialty Start Date End Date Alfreda Ray PA-C [address] [place] [address] PCP - General Family Medicine 12/30/21 Alfreda Ray PA-C [address] [place] [address] Referring Physician Family Medicine 12/31/21 Katrin Orellana PA-C [address] [place] [address] Physician Heel Scourer Dermatology 12/31/21 Shanna Vang PA-C [address] [place] [address] Assigned Cancer Care Provider 01/10/22 Fransisco Eddy MD [address] [place] [address] 687085 Assigned Rheumatology Provider 05/09/22 Katrin Orellana PA-C [address] [place] [address] 698625 Assigned Surgical Provider 08/15/22 02/10/24 Cristina Hsieh, [facility] [address] [facility] [place] [address] Pharmacist Pharmacist 09/07/22 Alfreda Ray PA-C [address] [place] [address] 906392 Assigned Pain Medication Provider 09/05/22 09/10/23 Alfreda Ray PA-C [address] [place] [address] Assigned PCP 08/29/22 Cristina Hsieh [facility] [address] [address] Assigned MTM Pharmacist 09/26/22 Dakota Tatum MD [address] [address] Cardiovascular Disease 03/25/23 Dakota Tatum MD Assigned Heart and Vascular Provider 05/01/23 11/09/24 [place] [address] [address], [address] [address] Assigned Musculoskeletal Provider 04/12/24 Johanne Gutierrez, RN RN Clinical Product Navigator Primary Care - CC 08/18/24 08/18/24 Linda Ambriz, [facility] Lead Crisis Specialist 08/18/24 08/23/24 documented as of this encounter
--- OUTSIDE RECORDS SUMMARY | 2025-02-24 20:53 | XMS_ITS | Encounter Summary ---
Author Organization [place] Address [address] [place] [address] Care Team Providers Care Machine Rough Rounder Name Role Phone Alfreda Ray PA-C Primary Care Provider + Alfreda Ray PA-C Unavailable [phone] Katrin Orellana PA-C Unavailable [phone] Shanna Vang PA-C Unavailable [phone] Fransisco Eddy MD Unavailable [phone] Katrin Orellana PA-C Unavailable [phone] Cristina Hsieh [facility] Unavailable [phone] Alfreda Ray PA-C Unavailable [phone] Alfreda Ray PA-C Unavailable +[phone] Cristina Hsieh [facility] Unavailable [phone] Dakota Tatum MD Unavailable Unava ilable Dakota Tatum MD Unavailable Unava ilable Srinivas Marie DO Unavailable [phone] Johanne Gutierrez RN Unavailable [phone] Linda Ambriz [facility] Unavailable [phone] Encounter Details Date Type Department Care Team (Late st Contact Info) Description 08/11/2023 [facility] [address] [place], [place] [phone] Gia Weller Social History Tobacco Use Types [...] Assigned at Female 08/17/2018 7:56 AM DATA ARCHITECT Legal Sex Female 4:24 AM DATA ARCHITECT Gender Identity Female 08/17/2018 7:56 AM DATA ARCHITECT Sexual Orientation Straight 08/17/2018 7: 56 AM DATA ARCHITECT documented as of this encounter Plan of Treatment Upcoming Encounters Date Type Department Care Team (Late st Contact Info) Description 06/28/2025 3:00 PM DATA ARCHITECT Office Visit [address] 200 [place] [phone] Fransisco Eddy MD [address] [place] [address] documented as of this encounter Visit Diagnoses Not on filedocumented in this encounter Additional Health Concerns Assessment Noted Time PHQ-9 Depression Total Score: 5 03/09/20 23 10:57 AM CDT documented as of this encounter Care Teams Machine Rough Rounder Relationship Specialty Start Date End Date Alfreda Ray PA-C [address] [place] [address] PCP - General Family Medicine 12/30/21 Alfreda Ray PA-C [address] [place] [address] Referring Physician Family Medicine 12/31/21 Katrin Orellana PA-C [address] [place] [address] Physician Truss Assembler Dermatology 12/31/21 Shanna Vang PA-C [address] [place] [address] 338604 Assigned Cancer Care Provider 01/10/22 Fransisco Eddy MD [address] [place] [address] 524235 Assigned Rheumatology Provider 05/09/22 Katrin Orellana PA-C [address] [place] [address]28 Assigned Surgical Provider 08/15/22 02/10/24 Cristina Hsieh [facility] [address] [place] [address] LISBETH HERNANDEZ [address] Pharmacist Pharmacist 09/07/22 Alfreda Ray PA-C [address] [place] [address] 745782 Assigned Pain Medication Provider 09/05/22 09/10/23 Alfreda Ray PA-C [address] [place] [address] 064382 Assigned PCP 08/29/22 Cristina Hsieh [facility] [address] [address] Assigned MTM Pharmacist 09/26/22 Dakota Tatum MD [address] [address] Cardiovascular Disease 03/25/23 Dakota Tatum MD Assigned Heart and Vascular Provider 05/01/23 11/09/24 [place] [address] [address] Assigned Musculoskeletal Provider 04/12/24 Johanne Gutierrez RN TIFFANIE Clinical Product Navigator Primary Care - CC 08/18/24 08/18/24 Linda Ambriz, [facility] Lead Cooperative Extension Agent 08/18/24 08/23/24 documented as of this encounter
--- OUTSIDE RECORDS SUMMARY | 2025-02-24 20:53 | XMS_ITS | Encounter Summary ---
Author Organization [place] Address [address] [place] [address] Care Team Providers Care Farm Or Ranch Animal Caretaker Name Role Phone Alfreda Ray PA-C Primary Care Provider + Alfreda Ray PA-C Unavailable [phone] Katrin Orellana PA-C Unavailable [phone] Shanna Vang PA-C Unavailable [phone] Fransisco Eddy MD Unavailable +[phone] Katrin Orellana PA-C Unavailable [phone] Cristina Hsieh [facility] Unavailable +[phone] Alfreda Ray PA-C Unavailable +[phone] Alfreda Ray PA-C Unavailable [phone] Cristina Hsieh [facility] Unavailable [phone] Dakota Tatum MD Unavailable Unava ilable Dakota Tatum MD Unavailable Unava ilable Srinivas Marie DO Unavailable [phone] Johanne Gutierrez RN Unavailable [phone] [facility] Unavailable [phone] Reason for Visit * Reason Comments Medication Refill METHOTREXATE 50 MG/2 ML VIAL Encounter Details Date Type Department Care Team (Late st Contact Info) Description 06/20/2023 Refill [facility] [address] [place] [address] Fransisco Eddy MD [address] [place] [address] Medication Refill (METHOTREXATE 50 MG/2 ML VIAL) [...] Sex Assigned at Female 08/17/2018 7:56 AM HIRED HELP Legal Sex Female 4:24 AM HIRED HELP Gender Identity Female 08/17/2018 7:56 AM HIRED HELP Sexual Orientation Straight 08/17/2018 7: 56 AM HIRED HELP documented as of this encounter Miscellaneous Notes * Telephone Encounter - Fransisco Eddy MD - 06/25/2023 5:14 PM HIRED HELP Apologize for confusion engendered by last note and clinic visit. I expected methotrexate to have been discontinued now that patient is receiving Actemra. D HELP * Telephone Encounter - Lynne Levy RN - 06/25/2023 1:34 PM CST METHOTREXATE 50 MG/2 ML VIAL Last Written Prescription Date: not on active med list Discontinued Therapy completed (No AVS) Cristina Hsieh, [facility] 03/04/23 1338 Last Office Visit: 06-17-23 Future [...] documentation of discontinue med found in note. D HELP documented in this encounter Plan of Treatment Upcoming Encounters Date Type Department Care Team (Late st Contact Info) Description 06/28/2025 3:00 PM HIRED HELP Office Visit [facility] [address] [phone] Fransisco Eddy MD [address] [place] [address] documented as of this encounter Visit Diagnoses Not on filedocumented in this encounter Additional Health Concerns Assessment Noted Time PHQ-9 Depression Total Score: 5 03/09/20 23 10:57 AM CDT documented as of this encounter Care Teams Farm Or Ranch Animal Caretaker Relationship Specialty Start Date End Date Alfreda Ray PA-C [address] [place] [address] PCP - General Family Medicine 12/30/21 Alfreda Ray PA-C [address] [place] [address] Referring Physician Family Medicine 12/31/21 Katrin Orellana PA-C [address] [address] Physician Fuel Cell Battery Technician Dermatology 12/31/21 Shanna Vang PA-C [address] [place] [address] 477024 Assigned Cancer Care Provider 01/10/22 Fransisco Eddy MD [address] [place] [address] 948905 Assigned Rheumatology Provider 05/09/22 Katrin Orellana PA-C [address] [place] [address] 352405 Assigned Surgical Provider 08/15/22 02/10/24 Cristina Hsieh [facility] 3[address] [facility] LISBETH HERNANDEZ [id number] Pharmacist Pharmacist 09/07/22 Alfreda Ray PA-C [address] [place] [address] 027092 Assigned Pain Medication Provider 09/05/22 09/10/23 Alfreda Ray PA-C [address] [place] [address] [phone] Assigned PCP 08/29/22 Cristina Hsieh [facility] [address] [phone] Assigned MTM Pharmacist 09/26/22 Dakota Tatum MD [address] [facility] [address] [place] [address] Cardiovascular Disease 03/25/23 Dakota Tatum MD Assigned Heart and Vascular Provider 05/01/23 11/09/24 [place] [address] CELE GASTELUM, [facility] [address] [place] [address] Assigned Musculoskeletal Provider 04/12/24 Johanne Gutierrez RN RN Clinical Product Navigator Primary Care - CC 08/18/24 08/18/24 Linda Ambriz, [facility] Lead Java Integration Developer 08/18/24 08/23/24 documented as of this encounter
--- OUTSIDE RECORDS SUMMARY | 2025-02-24 20:53 | XMS_ITS | Encounter Summary ---
Author Organization [facility] Address [address] [place] [address] Care Team Providers Care Consulting Solution Manager Name Role Phone Esperanza Gatica MD Primary Care Provider + Esperanza Gatica MD Unavailable + Jesús Orourke MD Unavailable Alfreda Ray-C Primary Care Provider + Alfreda RayC Unavailable +[phone] Katrin Orellana PA-C Unavailable +[phone] Shanna Vang PA-C Unavailable +[phone] Fransisco Eddy MD Unavailable +[phone] Esperanza Gatica MD Unavailable + Esperanza Gatica MD Unavailable +71 Katrin OrellanaC Unavailable +[phone] Cristina Hsieh [facility] Unavailable +[phone] Alfreda Ray PA-C Unavailable +[phone] Alfreda Ray PA-C Unavailable +2600 Cristina Hsieh [facility] Unavailable +[phone] Dakota Tatum MD Unavailable Unava ilDakota Padgett MD Unavailable Unava brittneySrinivas Yun DO Unavailable +[phone] Brenda Johanne K RN Unavailable +[phone] Linda Ambriz [facility] Unavailable +- [phone] Reason for Visit * Reason Onset Date Comments MyChart Communication 04/07/2021 Medication question-HCTZ Encounter Details Date Type Department Care Team (Late st Contact Info) Description 04/07/2021 MyC Medical Advice [facility] [address] [place] [address] [place] [address] [place] [address] MyChart Communication (Medication question... Social History [...] Sex Assigned at Female 08/17/2018 7:56 AM COVER CUTTER Legal Sex Female 4:24 AM COVER CUTTER Gender Identity Female 08/17/2018 7:56 AM COVER CUTTER Sexual Orientation Straight 08/17/2018 7: 56 AM COVER CUTTER COVID-19 Exposure Response Date Recorded In the last month, have you been in contact with someone who was confirmed or suspected to have Coronavirus / COVID-19? No / Unsure 04/02/2021 10:04 AM CDT documented as of this encounter Plan of Treatment Upcoming Encounters Date Type Department Care Team (Late Contact Info) Description 06/28/2025 3:00 PM COVER CUTTER Office Visit [address] [address] Fransisco Eddy MD [address] [place] [address] documented as of this encounter Visit Diagnoses Not on filedocumented in this encounter Additional Health Concerns Infection Onset Date Last Indicated Resolved Time Rule Out COVID-19 05/08/2021 05/08/2021 05/09/2021 9:08 PM COVER CUTTER Assessment Noted Time PHQ-9 Depression Total Score: 0 08/31/19 21 11:22 AM COVER CUTTER documented as of this encounter Care Teams Consulting Solution Manager Relationship Specialty Start Date End Date Esperanza Gatica MD PCP - General Family Practice 10/13/11 12/29/21 Alfreda Ray PA-C [address] [place] [address] 810362 PCP - General Family Medicine 12/30/21 [place] [address] [place] [address] Assigned PCP 09/29/20 07/31/22 [place] [address] [place] [address] [address] Assigned Musculoskeletal Provider 10/20/20 04/17/22 Alfreda Ray PA-C [address] [place] [address] 622212 Referring Physician Family Medicine 12/31/21 Katrin Orellana PA-C [address] [place] [address] 645625 Physician Concrete Wall Grinder Operator Dermatology 12/31/21 Shanna Vang PA-C [address] [place] [address] Assigned Cancer Care Provider 01/10/22 Fransisco Eddy MD [address] [place] [address] 88 [place] [address] Assigned Rheumatology Provider 05/09/22 [place] [address] [place] [address] Assigned Pain Medication Provider 06/29/22 09/04/22 [place] [address] [place] [address] Assigned PCP 08/15/22 08/28/22 Katrin Orellana PA-C [address] [place] [address] Assigned Surgical Provider 08/15/22 02/10/24 Cristina Hsieh [facility] [address] [place] [address] LISBETH HERNANDEZ [address] Pharmacist Pharmacist 09/07/22 Alfreda Ray PA-C [address] [place] [address] Assigned Pain Medication Provider 09/05/22 09/10/23 Alfreda Ray PA-C [address] [place] [address] Assigned PCP 08/29/22 Cristina Hsieh [facility] [address] [address] Assigned MTM Pharmacist 09/26/22 Dakota Tatum MD [address] [address] Cardiovascular Disease 03/25/23 Dakota Tatum MD Assigned Heart and Vascular Provider 05/01/23 11/09/24 [place] [address] [place] , [address] [address] Assigned Musculoskeletal Provider 04/12/24 Johanne Gutierrez RN TIFFANIE Clinical Product Navigator Primary Care - CC 08/18/24 08/18/24 Linda Ambriz, [facility] Lead Upper Lining Cementer 08/18/24 08/23/24 documented as of this encounter
--- OUTSIDE RECORDS SUMMARY | 2025-02-24 20:53 | XMS_ITS | Encounter Summary ---
Author Organization [facility] Address [address] [place] [address] Care Team Providers Care Clay Products Glazer Name Role Phone Alfreda Ray PA-C Primary Care Provider + Alfreda Ray PA-C Unavailable [phone] Katrin Orellana PA-C Unavailable [phone] Shanna Vang PA-C Unavailable +[phone] Fransisco Eddy MD Unavailable +[phone] Katrin Orellana PA-C Unavailable +[phone] Cristina Hsieh [facility] Unavailable +[phone] Alfreda aRy PA-C Unavailable +[phone] Alfreda Ray PA-C Unavailable +[phone] Cristina Hsieh [facility] Unavailable +[phone] Dakota Tatum MD Unavailable Unava ilable Dakota Tatum MD Unavailable Unava ilable Srinivas Marie DO Unavailable [phone] Johanne Gutierrez RN Unavailable [phone] [facility] Unavailable [phone] Encounter Details Date Type Department Care Team (Late st Contact Info) Description 06/16/2023 [facility] [address] [place] [address] 105 [place] [address] Shanna Vang, PAFilemonC [address] [place] [address] Social History Tobacco Use Types Packs/Day Years [...] in an overnight prison, or couch-surfing.) Yes 05/18/2023 Are you worried [...] Sex Assigned at Female 08/17/2018 7:56 AM CRYSTAL GROWER Legal Sex Female 4:24 AM CRYSTAL GROWER Gender Identity Female 08/17/2018 7:56 AM CRYSTAL GROWER Sexual Orientation Straight 08/17/2018 7: 56 AM CRYSTAL GROWER documented as of this encounter Plan of Treatment Upcoming Encounters Date Type Department Care Team (Late st Contact Info) Description 06/28/2025 3:00 PM CRYSTAL GROWER Office Visit [facility] [address] [phone] Fransisco Eddy MD [address] [place] [address] 660405 documented as of this encounter Visit Diagnoses Not on filedocumented in this encounter Additional Health Concerns Assessment Noted Time PHQ-9 Depression Total Score: 5 03/09/20 23 10:57 AM CDT documented as of this encounter Care Teams Clay Products Glazer Relationship Specialty Start Date End Date Alfreda Ray PA-C [address] [place] [address] PCP - General Family Medicine 12/30/21 Alfreda Ray PA-C [address] [place] [address] Referring Physician Family Medicine 12/31/21 Katrin Orellana PA-C [address] [place] [address] 98 [place], [place] 942125 Physician Senior Qa Automation Engineer Dermatology 12/31/21 Shanna Vang PA-C [address] [place] [address] 001504 Assigned Cancer Care Provider 01/10/22 Fransisco Eddy MD 515 [facility] 88 [place] [address] Assigned Rheumatology Provider 05/09/22 Katrin Orellana PA-C 420 [facility] 98 [place] [address] Assigned Surgical Provider 08/15/22 02/10/24 Cristina Hsieh [facility] [address] [place] [address] Pharmacist Pharmacist 09/07/22 Alfreda Ray PA-C [address] [place] [address] 164892 Assigned Pain Medication Provider 09/05/22 09/10/23 Alfreda Ray PA-C [address] [place] [address] 154062 Assigned PCP 08/29/22 Cristina Hsieh [facility] [address] [address] Assigned MTM Pharmacist 09/26/22 Dakota Tatum MD [address] [address] Cardiovascular Disease 03/25/23 Dakota Tatum MD Assigned Heart and Vascular Provider 05/01/23 11/09/24 [place] [address] CELE GASTELUM, [address] [address] Assigned Musculoskeletal Provider 04/12/24 Johanne Gutierrez, RN RN Clinical Product Navigator Primary Care - CC 08/18/24 08/18/24 Linda Ambriz, [facility] Lead Information Technology Professor 08/18/24 08/23/24 documented as of this encounter
--- OUTSIDE RECORDS SUMMARY | 2025-02-24 20:53 | XMS_ITS | Encounter Summary ---
Author Organization [facility] Address [address] [place] [address] Care Team Providers Care Recorder Gravity Prospecting Name Role Phone Esperanza Gatica MD Primary Care Provider + Esperanza Gatica MD Unavailable + Jesús Orourke MD Unavailable Alfreda Ray-C Primary Care Provider + Alfreda RayC Unavailable +2608 Katrin Orellana PA-C Unavailable +[phone] Shanna Vang PA-C Unavailable +[phone] Fransisco Eddy MD Unavailable +[phone] Esperanza Gatica MD Unavailable + Esperanza Gatica MD Unavailable +64 Katrin OrellanaC Unavailable +[phone] Cristina Hsieh [facility] Unavailable +[phone] Alfreda Ray PA-C Unavailable +[phone] Alfreda Ray PA-C Unavailable +2600 Cristina Hsieh [facility] Unavailable +[phone] Dakota Tatum MD Unavailable Unava ilDakota Padgett MD Unavailable Unava brittneySrinivas Yun DO Unavailable [phone] Johanne Gutierrez RN Unavailable +[phone] Linda Ambriz [facility] Unavailable +[phone] Reason for Visit * Reason Onset Date Comments MyChart Communication 11/26/2020 Encounter Details Date Type Department Care Team (Late st Contact Info) Description 11/26/[address] [facility] Sports Medicine [facility] [address] [facility] [address] [place], [place] [address] Jesú[place] [address] [place] [address] [place] [address] MyChart Communication Social History Tobacco Use Types [...] Sex Assigned at Female 08/17/2018 7:56 AM JUNIOR MARKETING ASSOCIATE Legal Sex Female 4:24 AM JUNIOR MARKETING ASSOCIATE Gender Identity Female 08/17/2018 7:56 AM JUNIOR MARKETING ASSOCIATE Sexual Orientation Straight 08/17/2018 7: 56 AM JUNIOR MARKETING ASSOCIATE COVID-19 Exposure Response Date Recorded In the last month, have you been in contact with someone who was confirmed or suspected to have Coronavirus / COVID-19? No / Unsure 11/12/2020 1:17 PM CDT documented as of this encounter Plan of Treatment Upcoming Encounters Date Type Department Care Team (Late st Contact Info) Description 06/28/2025 3:00 PM JUNIOR MARKETING ASSOCIATE Office Visit [facility] Specialty [address] [place] [address] Fransisco Eddy MD [address] [place] [address] documented as of this encounter Visit Diagnoses Not on filedocumented in this encounter Additional Health Concerns Infection Onset Date Last Indicated Resolved Time Rule Out COVID-19 05/08/2021 05/08/2021 05/09/2021 9:08 PM JUNIOR MARKETING ASSOCIATE Assessment Noted Time PHQ-9 Depression Total Score: 0 08/31/19 21 11:22 AM JUNIOR MARKETING ASSOCIATE documented as of this encounter Care Teams Recorder Gravity Prospecting Relationship Specialty Start Date End Date Esperanza Gatica MD PCP - General Family Practice 10/13/11 12/29/21 Alfreda Ray PA-C [address] [place] [address] 079532 PCP - General Family Medicine 12/30/21 [place] [address] [place] [address] Assigned PCP 09/29/20 07/31/22 Jesú[place] [address] [place] [address] [place] [address] Assigned Musculoskeletal Provider 10/20/20 04/17/22 Alfreda Ray PA-C [address] [place] [address] 462602 Referring Physician Family Medicine 12/31/21 Katrin Orellana PA-C [address] [place] [address] [phone] Physician Fans Clerk Dermatology 12/31/21 Shanna Vang PA-C [address] [place] [address] [phone] Assigned Cancer Care Provider 01/10/22 Fransisco Eddy MD [address] [place] [address] Assigned Rheumatology Provider 05/09/22 [place] [address] [place] [address] Assigned Pain Medication Provider 06/29/22 09/04/22 [place] [address] [place] [address] Assigned PCP 08/15/22 08/28/22 Katrin Orellana PA-C [address] [place] [address] Assigned Surgical Provider 08/15/22 02/10/24 Cristina Hsieh [place] [address] [facility] [address] Pharmacist Pharmacist 09/07/22 Alfreda Ray PA-C [address] [place] [address] Assigned Pain Medication Provider 09/05/22 09/10/23 Alfreda Ray PA-C [address] [place] [address] Assigned PCP 08/29/22 Cristina Hsieh [facility] [address] [address] Assigned MTM Pharmacist 09/26/22 Dakota Tatum MD 1600 [facility] [place] [address] [place] [address] Cardiovascular Disease 03/25/23 Dakota Tatum MD Assigned Heart and Vascular Provider 05/01/23 11/09/24 [place] [address] CELE GASTELUM, [facility] 300 [place] [address] Assigned Musculoskeletal Provider 04/12/24 Johanne Gutierrez RN ITFFANIE Clinical Product Navigator Primary Care - CC 08/18/24 08/18/24 Linda Ambriz, [facility] Lead Audit Clerks Supervisor 08/18/24 08/23/24 documented as of this encounter
--- OUTSIDE RECORDS SUMMARY | 2025-02-24 20:53 | XMS_ITS | Encounter Summary ---
Author Organization [facility] Address [address] [place] [address] Care Team Providers Care Covered Buckle Assembler Name Role Phone Esperanza Gatica MD Primary Care Provider + Esperanza Gatica MD Unavailable + Jesús Orourke MD Unavailable Alfreda Ray-C Primary Care Provider + Alfreda RayC Unavailable +2601 Katrin Orellana PA-C Unavailable +[phone] Shanna aVng PA-C Unavailable +[phone] Fransisco Eddy MD Unavailable +[phone] Esperanza Gatica MD Unavailable + Esperanza Gatica MD Unavailable +02 Katrin OrellanaC Unavailable +[phone] Cristina Hsieh [facility] Unavailable +[phone] Alfreda Ray PA-C Unavailable +[phone] Alfreda Ray PA-C Unavailable +2600 Cristina Hsieh [facility] Unavailable +[phone] Dakota Tatum MD Unavailable Unava ilDakota Padgett MD Unavailable Unava brittneySrinivas Yun DO Unavailable [phone] Johanne Gutierrez RN Unavailable [phone] Linda Ambriz [facility] Unavailable +[phone] Encounter Details Date Type Department Care Team (Late st Contact Info) Description 01/01/[address] [facility] [address] [place] [address] [place] [address] [place] [address] Social History Tobacco Use Types [...] Sex Assigned at Female 08/17/2018 7:56 AM GRANTS ADMINISTRATOR Legal Sex Female 4:24 AM GRANTS ADMINISTRATOR Gender Identity Female 08/17/2018 7:56 AM GRANTS ADMINISTRATOR Sexual Orientation Straight 08/17/2018 7: 56 AM GRANTS ADMINISTRATOR COVID-19 Exposure Response Date Recorded In the last month, have you been in contact with someone who was confirmed or suspected to have Coronavirus / COVID-19? No / Unsure 12/31/2020 8:35 AM CDT documented as of this encounter Plan of Treatment Upcoming Encounters Date Type Department Care Team (Late Contact Info) Description 06/28/2025 3:00 PM GRANTS ADMINISTRATOR Office Visit [facility] [place] 6525 [facility] 200 [place] [address] Fransisco Eddy MD [address] [place] [address] documented as of this encounter Visit Diagnoses Not on filedocumented in this encounter Additional Health Concerns Infection Onset Date Last Indicated Resolved Time Rule Out COVID-19 05/08/2021 05/08/2021 05/09/2021 9:08 PM GRANTS ADMINISTRATOR Assessment Noted Time PHQ-9 Depression Total Score: 0 08/31/19 21 11:22 AM GRANTS ADMINISTRATOR documented as of this encounter Care Teams Covered Buckle Assembler Relationship Specialty Start Date End Date Esperanza Gatica MD PCP - General Family Practice 10/13/11 12/29/21 Alfreda Ray PA-C [address] [place] [address] [id number] PCP - General Family Medicine 12/30/21 [place] [address] [place] [address] Assigned PCP 09/29/20 07/31/22 [place] [address] [facility] [place], [place] [address] Assigned Musculoskeletal Provider 10/20/20 04/17/22 Alfreda Ray PA-C [address] [place] [address] 623362 Referring Physician Family Medicine 12/31/21 Katrin Orellana PA-C [address] [place] [address] 820485 Physician Vault Service Mechanic Dermatology 12/31/21 Shanna Vang PA-C [address] [place] [address] [phone] Assigned Cancer Care Provider 01/10/22 Fransisco Eddy MD [address] [place] [address] 88 [place] [address] Assigned Rheumatology Provider 05/09/22 [place] [address] [place] [address] Assigned Pain Medication Provider 06/29/22 09/04/22 [place] [address] [place] [address] Assigned PCP 08/15/22 08/28/22 Katrin Orellana PA-C [address] [place] [address] Assigned Surgical Provider 08/15/22 02/10/24 Cristina Hsieh [facility] [address] [facility] LISBETH HERNANDEZ [address] Pharmacist Pharmacist 09/07/22 Alfreda Ray PA-C [address] [place] [address] Assigned Pain Medication Provider 09/05/22 09/10/23 Alfreda Ray PA-C [address] [place] [address] Assigned PCP 08/29/22 Cristina Hsieh [facility] [address] [id number] Assigned MTM Pharmacist 09/26/22 Dakota Tatum MD 1600 [facility] [place] [address] [place] [address] Cardiovascular Disease 03/25/23 Dakota Tatum MD Assigned Heart and Vascular Provider 05/01/23 11/09/24 [place] [address] CELE GASTELUM, [facility] 300 [place] [address] Assigned Musculoskeletal Provider 04/12/24 Johanne Gutierrez RN RN Clinical Product Navigator Primary Care - CC 08/18/24 08/18/24 Linda Ambriz, [facility] Lead Senior Technical Program Manager 08/18/24 08/23/24 documented as of this encounter
--- OUTSIDE RECORDS SUMMARY | 2025-02-24 20:53 | XMS_ITS | Encounter Summary ---
Author Organization [facility] Address [address] [place] [address] Care Team Providers Care Engraver Set Up Operator Name Role Phone Esperanza Gatica MD Primary Care Provider + Esperanza Gatica MD Unavailable +082 Esperanza Gatica MD Unavailable +417 Esperanza Gatica MD Unavailable +499 Esperanza Gatica MD Unavailable +842 Esperanza Gatica MD Unavailable +494 Esperanza Gatica MD Unavailable +[phone] Jesús Orourke MD Unavailable Alfreda RayC Primary Care Provider + Alfreda Ray PA-C Unavailable +[phone] Katrin Orellana PA-C Unavailable +[phone] Shanna VangC Unavailable +[phone] Fransisco Eddy MD Unavailable +[phone] Esperanza Gatica MD Unavailable +[phone] Esperanza Gatica MD Unavailable +[phone] Katrin Orellana PA-C Unavailable Cristina Hsieh [facility] Unavailable +[phone] Cory Alfreda Liu PA-C Unavailable +[phone] Alfreda Ray Alexa KING Unavailable +[phone] Cristina Hsieh [facility] Unavailable +[phone] Dakota Tatum MD Unavailable Unava ilable Dakota Tatum MD Unavailable Unava ilable CynthiaSrinivas Unavailable +[phone] Brenda Johanne Salome [place] Unavailable +[phone] Linda Ambriz [facility] Unavailable +[phone] Reason for Visit * Reason Onset Date Comments Refill Request 02/07/2015 Trazodone 50mg Encounter Details Date Type Department Care Team (Late st Contact Info) Description 02/07/2015 MyC Refill [address], [address] [place] [address] [place] [address] [place], [place] [phone] Refill Request (Trazodone 50mg) Social History Tobacco [...] Assigned at Female 08/17/2018 7:56 AM INSURANCE SALESMAN Legal Sex Female 4:24 AM INSURANCE SALESMAN Gender Identity Female 08/17/2018 7:56 AM INSURANCE SALESMAN Sexual Orientation Straight 08/17/2018 7: 56 AM INSURANCE SALESMAN documented as of this encounter Miscellaneous Notes [...] tablet [Esperanza Gatica MD] Preferred pharmacy: [id number] Comment: documented in this encounter Plan of Treatment Upcoming Encounters Date Type Department Care Team (Late st Contact Info) Description 06/28/2025 3:00 PM INSURANCE SALESMAN Office Visit [facility] Special[facility] [address] [phone] Fransisco Eddy MD [address] [place] [address] [phone] documented as of this encounter Visit Diagnoses Diagnosis Insomnia, unspecified documented in this encounter Additional Health Concerns Infection Onset Date Last Indicated Resolved Time Rule Out COVID-19 05/08/2021 05/08/2021 05/09/2021 9:08 PM INSURANCE SALESMAN documented as of this encounter Care Teams Engraver Set Up Operator Relationship Specialty Start Date End Date Esperanza Gatica MD PCP - General Family Practice 10/13/11 12/29/21 [place] [address] [facility] [place] [address] PCP - Assigned PCP 12/05/17 08/23/18 Alfreda Ray PA-C [address] [place] [address] PCP - General Family Medicine 12/30/21 [place] [address] [place] [address] Assigned PCP 12/05/17 09/30/19 [place] [address] [place] [address] Assigned PCP 10/01/19 03/02/20 [place] [address] [place] [address] Assigned PCP 03/03/20 05/25/20 [place] [address] LISB[address] GARCIA [address] Assigned PCP 05/26/20 09/28/20 [place] [address] [place] [address] Assigned PCP 09/29/20 07/31/22 Jesú[place] [address] [place] [address] Assigned Musculoskeletal Provider 10/20/20 04/17/22 Alfreda Ray PA-C [address] [place] [address] 145912 Referring Physician Family Medicine 12/31/21 Katrin Orellana PA-C [address] [place] [address] Physician Asbestos Abatement Technician Dermatology 12/31/21 Shanna Vang PA-C [address] [place] [address] 368744 Assigned Cancer Care Provider 01/10/22 Fransisco Eddy MD [address] [place] [address] 063335 Assigned Rheumatology Provider 05/09/22 [place] [address] [place] [address] Assigned Pain Medication Provider 06/29/22 09/04/22 [place] [address] [place] [address] Assigned PCP 08/15/22 08/28/22 Katrin Orellana PA-C [address] [place] [address] 366055 Assigned Surgical Provider 08/15/22 02/10/24 Cristina Hsieh, [facility] [address] [place] [address] LISBETH HERNANEDZ [address] Pharmacist Pharmacist 09/07/22 Alfreda Ray PA-C [address] [place] [address] 285902 Assigned Pain Medication Provider 09/05/22 09/10/23 Alfreda Ray PA-C [address] [place] [address] 066262 Assigned PCP 08/29/22 Cristina Hsieh, [facility] [address] [address] Assigned MTM Pharmacist 09/26/22 Dakota Tatum MD [address] [address] Cardiovascular Disease 03/25/23 Dakota Tatum MD Assigned Heart and Vascular Provider 05/01/23 11/09/24 [place] [address] CELE GASTELUM, [address] [address] Assigned Musculoskeletal Provider 04/12/24 Johanne Gutierrez RN TIFFANIE Clinical Product Navigator Primary Care - CC 08/18/24 08/18/24 Linda Ambriz, [facility] Lead Band Sawyer 08/18/24 08/23/24 documented as of this encounter
--- OUTSIDE RECORDS SUMMARY | 2025-02-24 20:53 | XMS_ITS | Encounter Summary ---
Author Organization [place] Address [address] [place] [address] Care Team Providers Care Qa Automation Developer Name Role Phone Esperanza Gatica MD Primary Care Provider + Esperanza Gatica MD Unavailable +[phone] Esperanza Gatica MD Unavailable +[phone] Esperanza Gatica MD Unavailable +[phone] Esperanza Gatica MD Unavailable +[phone] Esperanza Gatica MD Unavailable +[phone] Esperanza Gatica MD Unavailable +[phone] Jesús Orourke MD Unavailable Alfreda RayC Primary Care Provider + Alfreda Ray PA-C Unavailable +- [phone] Katrin Orellana PA-C Unavailable +[phone] Shanna VangC Unavailable +[phone] Fransisco Eddy MD Unavailable +[phone] Esperanza Gatica MD Unavailable +[phone] Esperanza Gatica MD Unavailable +[phone] Katrin Orellana PA-C Unavailable Cristina Hsieh [facility] Unavailable +[phone] Cory Alfreda Liu PA-C Unavailable +[phone] Ho Raymustapha Liu PA-C Unavailable +[phone] Cristina Hsieh [facility] Unavailable +[phone] Dakota Tatum MD Unavailable Unava ilable Dakota Tatum MD Unavailable Unava ilable CynthiaSrinivas Unavailable +[phone] Brenda Johanne Salome RN Unavailable [phone] Mariana Ambrizie Gallito [facility] Unavailable +[phone] Reason for Visit * Reason Onset Date Comments Refill Request 09/11/2015 Lisinopril-HCTZ Encounter Details Date Type Department Care Team (Late st Contact Info) Description 09/11/2015 MyC Refill [address], [address] [place] [address] [place] [address] [place] [address] Refill Request (Lisinopril-HCTZ) Social History [...] Assigned at Female 08/17/2018 7:56 AM WIRE FENCE BUILDER Legal Sex Female 4:24 AM WIRE FENCE BUILDER Gender Identity Female 08/17/2018 7:56 AM WIRE FENCE BUILDER Sexual Orientation Straight 08/17/2018 7: 56 AM WIRE FENCE BUILDER documented as of this encounter Miscellaneous Notes * Telephone Encounter - Leigha Rinaldi RN - 09/11/2015 11:44 AM CDT Lisinopril-HCTZ Last Written Prescription Date: 08/13/2015 Last Fill Quantity: 90, # refills: 1 Last Office Visit with [facility] or [facility] prescribing provider: 08/13/2015 POTASSIUM Date Value Ref Range Status 08/13/2015 3.9 3.4 - 5.3 mmol/L Final CREATININE Date Value Ref Range Status 08/13/2015 0.87 0.52 - 1.04 mg/dL Final BP Readings from Last 3 Encounters: 08/13/15 136/66 04/08/15 112/60 12/06/14 126/64 Leigha Rinaldi RN * Telephone Encounter - Leigha Rinaldi RN - 09/11/2015 11:44 AM [facility] Original authorizing provider: MD Alexandria Brannon would like a refill of the following medications: lisinopril-hydrochlorothiazide (PRINZIDE,ZESTORETIC) 10-12.5 MG per tablet [Esperanza Gatica MD] Preferred pharmacy: [facility] [place], [place] - [address] [place] [address] Comment: documented in this encounter Plan of Treatment Upcoming Encounters Date Type Department Care Team (Late st Contact Info) Description 06/28/2025 3:00 PM WIRE FENCE BUILDER Office [facility] [address] [address] Fransisco Eddy MD [address] [place] [address] documented as of this encounter Visit Diagnoses Diagnosis HTN (hypertension), benign Essential hypertension, benign documented in this encounter Additional Health Concerns Infection Onset Date Last Indicated Resolved Time Rule Out COVID-19 05/08/2021 05/08/2021 05/09/2021 9:08 PM WIRE FENCE BUILDER Assessment Noted Time PHQ-9 Depression Total Score: 0 08/14/19 16 8:10 AM WIRE FENCE BUILDER documented as of this encounter Care Teams Qa Automation Developer Relationship Specialty Start Date End Date Esperanza Gatica MD PCP - General Family Practice 10/13/11 12/29/21 [place] [address] [place] [address] PCP - Assigned PCP 12/05/17 08/23/18 Alfreda Ray PA-C [address] [place] [address] PCP - General Family Medicine 12/30/21 [place] [address] [place] [address] Assigned PCP 12/05/17 09/30/19 [place] [address] [place] [address] Assigned PCP 10/01/19 03/02/20 [place] [address] [place] [address] Assigned PCP 03/03/20 05/25/20 [place] [address] [place] [address] Assigned PCP 05/26/20 09/28/20 [place] [address] [place] [address] Assigned PCP 09/29/20 07/31/22 Jesú[place] [address] [place] [address] Assigned Musculoskeletal Provider 10/20/20 04/17/22 Alfreda Ray PA-C [address] [place] [address] Referring Physician Family Medicine 12/31/21 Katrin Orellana PA-C [address] [place] [address] 772415 Physician Principal Architectural Firm Dermatology 12/31/21 Shanna Vang PA-C [address] [place] [address] 198344 Assigned Cancer Care Provider 01/10/22 Fransisco Eddy MD [address] [place] [address] 466025 Assigned Rheumatology Provider 05/09/22 [place] [address] [place] [address] Assigned Pain Medication Provider 06/29/22 09/04/22 [place] [address] [place] [address] Assigned PCP 08/15/22 08/28/22 Katrin Orellana PA-C [address] [place] [address] Assigned Surgical Provider 08/15/22 02/10/24 Cristina Hsieh [facility] [address] [place] [address] Pharmacist Pharmacist 09/07/22 Alfreda Ray PA-C [address] [place] [address] Assigned Pain Medication Provider 09/05/22 09/10/23 Alfreda Ray PA-C [address] [place] [address] 644392 Assigned PCP 08/29/22 Cristina Hsieh, [facility] [address] [facility] [address] [place] [address] Assigned MTM Pharmacist 09/26/22 Dakota Tatum MD [address] [address] Cardiovascular Disease 03/25/23 Dakota Tatum MD Assigned Heart and Vascular Provider 05/01/23 11/09/24 [place] [address] [address] [facility] [address] [place] [address] Assigned Musculoskeletal Provider 04/12/24 Johanne Gutierrez, RN RN Clinical Product Navigator Primary Care - CC 08/18/24 08/18/24 Linda Ambriz, [facility] Lead Auto Tester 08/18/24 08/23/24 documented as of this encounter
--- OUTSIDE RECORDS SUMMARY | 2025-02-24 20:53 | XMS_ITS | Encounter Summary ---
Author Organization [place] Address [address] [place] [address] Care Team Providers Care Respite Provider Name Role Phone Esperanza Gatica MD Primary Care Provider + Esperanza Gatica MD Unavailable +[phone] Esperanza Gatica MD Unavailable +[phone] Esperanza Gatica MD Unavailable +[phone] Esperanza Gatica MD Unavailable +[phone] Esperanza Gatica MD Unavailable +[phone] Esperanza Gatica MD Unavailable +[phone] Jesús Orourke MD Unavailable Alfreda RayC Primary Care Provider + Alfreda Ray PA-C Unavailable +- [phone] Katrin Orellana PA-C Unavailable +[phone] Shanna VangC Unavailable +[phone] Franissco Eddy MD Unavailable [phone] Esperanza Gatica MD Unavailable +[phone] Esperanza Gatica MD Unavailable +[phone] Katrin Orellana PA-C Unavailable Cristina Hsieh [facility] Unavailable +[phone] Cory Alfreda Liu PA-C Unavailable +[phone] Ho Raymustapha Liu PA-C Unavailable +[phone] Cristina Hsieh [facility] Unavailable +[phone] Dakota Tatmu MD Unavailable Unava ilable Dakota Tatum MD Unavailable Unava ilable CynthiaSrinivas Unavailable +[phone] Brenda Johanne Salome RN Unavailable +[phone] Mariana Ambrizie Gallito [facility] Unavailable +[phone] Reason for Visit * Reason Onset Date Comments Refill Request 02/07/2015 Zolpidem 5mg Encounter Details Date Type Department Care Team (Late st Contact Info) Description 02/07/2015 MyC Refill [address], [address] [place] [address] [place] [address] [place] [address] Refill Request (Zolpidem 5mg) Social [...] Sex Assigned at Female 08/17/2018 7:56 AM BLOOD BANK SUPERVISOR Legal Sex Female 4:24 AM BLOOD BANK SUPERVISOR Gender Identity Female 08/17/2018 7:56 AM BLOOD BANK SUPERVISOR Sexual Orientation Straight 08/17/2018 7: 56 AM BLOOD BANK SUPERVISOR documented as of this encounter Miscellaneous Notes * Telephone Encounter - Leigha Rinaldi RN - 02/07/2015 1:27 PM CDT Zolpidem 5mg Last Written Prescription Date: 12/06/2014 Last Fill Quantity: 90, # refills: 2 Last Office Visit with [facility] primary care provider: 12/06/2014 Future Office visit: [...] MD] Preferred pharmacy: [id number] [address] Comment: documented in this encounter Plan of Treatment Upcoming Encounters Date Type Department Care Team (Late st Contact Info) Description 06/28/2025 3:00 PM BLOOD BANK SUPERVISOR Office [facility] [address] [address] Fransisco Eddy MD [address] [place] [address] [phone] documented as of this encounter Visit Diagnoses Diagnosis Insomnia, unspecified documented in this encounter Additional Health Concerns Infection Onset Date Last Indicated Resolved Time Rule Out COVID-19 05/08/2021 05/08/2021 05/09/2021 9:08 PM BLOOD BANK SUPERVISOR documented as of this encounter Care Teams Respite Provider Relationship Specialty Start Date End Date Esperanza Gatica MD PCP - General Family Practice 10/13/11 12/29/21 [place] [address] [place] [address] PCP - Assigned PCP 12/05/17 08/23/18 Alfreda Ray PA-C [address] [place] [address] PCP - General Family Medicine 12/30/21 [place] [address] [place] [address] Assigned PCP 12/05/17 09/30/19 [place] [address] [place] [address] Assigned PCP 10/01/19 03/02/20 [place] [address] [place] [address] Assigned PCP 03/03/20 05/25/20 [place] [address] [place] [address] Assigned PCP 05/26/20 09/28/20 [place] [address] [place] [address] Assigned PCP 09/29/20 07/31/22 [place] [address] [place] [address] Assigned Musculoskeletal Provider 10/20/20 04/17/22 Alfreda Ray PA-C [address] [place] [address] Referring Physician Family Medicine 12/31/21 Katrin Orellana PA-C [address] [place] [address] Physician Radioactive Waste Disposal Dispatcher Dermatology 12/31/21 Shanna Vang PA-C [address] [place] [address] 644594 Assigned Cancer Care Provider 01/10/22 Fransisco Eddy MD [address] [place] [address] 073615 Assigned Rheumatology Provider 05/09/22 [place] [address] [place] [address] Assigned Pain Medication Provider 06/29/22 09/04/22 [place] [address] [place] [address] Assigned PCP 08/15/22 08/28/22 Katrin Orellana PA-C [address] [place] [address] Assigned Surgical Provider 08/15/22 02/10/24 Cristina Hsieh [facility] [address] [place] [address] L[place]BETH HERNANDEZ [address] Pharmacist Pharmacist 09/07/22 Alfreda Ray PA-C [address] [place] [address] 418602 Assigned Pain Medication Provider 09/05/22 09/10/23 Alfreda Ray PA-C [address] [place] [address] Assigned PCP 08/29/22 Cristina Hsieh, [facility] [address] [address] Assigned MTM Pharmacist 09/26/22 Dakota Tatum MD [address] [address] Cardiovascular Disease 03/25/23 Dakota Ttaum MD Assigned Heart and Vascular Provider 05/01/23 11/09/24 [place] [address] [place], [address] [address] Assigned Musculoskeletal Provider 04/12/24 Johanne Gutierrez, RN RN Clinical Product Navigator Primary Care - CC 08/18/24 08/18/24 Linda Ambriz, [facility] Lead Pegger Dobby Looms 08/18/24 08/23/24 documented as of this encounter
--- OUTSIDE RECORDS SUMMARY | 2025-02-24 20:53 | XMS_ITS | Encounter Summary ---
Author Organization [place] Address [address] [place] [address] Care Team Providers Care Branch Operations Coordinator Name Role Phone Esperanza Gatica MD Primary Care Provider + Esperanza Gatica MD Unavailable + Jesús Orourke MD Unavailable Alfreda Ray-C Primary Care Provider + Alfreda RayC Unavailable +[phone] Katrin Orellana PA-C Unavailable +[phone] Shanna Vang PA-C Unavailable +[phone] Fransisco Eddy MD Unavailable +[phone] Esperanza Gatica MD Unavailable + Esperanza Gatica MD Unavailable +16 Katrin OrellanaC Unavailable +[phone] Cristina Hsieh [facility] Unavailable +[phone] Alfreda Ray PA-C Unavailable +[phone] Alfreda Ray PA-C Unavailable +[phone] Cristina Hsieh [facility] Unavailable [phone] Dakota Tatum MD Unavailable Unava ilDakota Padgett MD Unavailable Unava brittneySrinivas Yun DO Unavailable +[phone] Johanne Gutierrez RN Unavailable [phone] Linda Ambriz [facility] Unavailable [phone] Encounter Details Date Type Department Care Team (Late st Contact Info) Description 01/02/2021 MyC Medical Advice [facility] [address] [place] [address] [place] [address] [place] [address] Social History Tobacco Use Types [...] Sex Assigned at Female 08/17/2018 7:56 AM ELECTRICAL DESIGN ENGINEER Legal Sex Female 4:24 AM ELECTRICAL DESIGN ENGINEER Gender Identity Female 08/17/2018 7:56 AM ELECTRICAL DESIGN ENGINEER Sexual Orientation Straight 08/17/2018 7: 56 AM ELECTRICAL DESIGN ENGINEER COVID-19 Exposure Response Date Recorded In the last month, have you been in contact with someone who was confirmed or suspected to have Coronavirus / COVID-19? No / Unsure 12/31/2020 8:35 AM CDT documented as of this encounter Plan of Treatment Upcoming Encounters Date Type Department Care Team (Late Contact Info) Description 06/28/2025 3:00 PM ELECTRICAL DESIGN ENGINEER Office Visit [facility] [address] [facility] 200 [place] [address] Fransisco Eddy MD [address] [place] [address] documented as of this encounter Visit Diagnoses Not on filedocumented in this encounter Additional Health Concerns Infection Onset Date Last Indicated Resolved Time Rule Out COVID-19 05/08/2021 05/08/2021 05/09/2021 9:08 PM ELECTRICAL DESIGN ENGINEER Assessment Noted Time PHQ-9 Depression Total Score: 0 08/31/19 21 11:22 AM ELECTRICAL DESIGN ENGINEER documented as of this encounter Care Teams Branch Operations Coordinator Relationship Specialty Start Date End Date Esperanza Gatica MD PCP - General Family Practice 10/13/11 12/29/21 Alfreda Ray PA-C [address] [place] [address] 105102 PCP - General Family Medicine 12/30/21 [place] [address] [place] [address] Assigned PCP 09/29/20 07/31/22 Jesú[place] [address] [place] [facility] [place], [place] 751217 Assigned Musculoskeletal Provider 10/20/20 04/17/22 Alfreda Ray PA-C [address] [place] [address] 889312 Referring Physician Family Medicine 12/31/21 Katrin Orellana PA-C [address] [place] [address] 514505 Physician Billing Rep Dermatology 12/31/21 Shanna Vang PA-C [address] [place] [address] 016704 Assigned Cancer Care Provider 01/10/22 Fransisco Eddy MD [address] [place] [address] 88 [place] [address] Assigned Rheumatology Provider 05/09/22 [place] [address] [place] [address] Assigned Pain Medication Provider 06/29/22 09/04/22 [place] [address] [place] [address] Assigned PCP 08/15/22 08/28/22 Katrin Orellana PA-C [address] [place] [address] Assigned Surgical Provider 08/15/22 02/10/24 Cristina Hsieh [facility] [address] [facility] [place] [address] Pharmacist Pharmacist 09/07/22 Alfreda Ray PA-C [address] [place] [address] Assigned Pain Medication Provider 09/05/22 09/10/23 Alfreda Ray PA-C [address] [place] [address] Assigned PCP 08/29/22 Cristina Hsieh [facility] [address] [id number] Assigned MTM Pharmacist 09/26/22 Dakota Tatum MD 1600 [facility] [address] [place] [address] Cardiovascular Disease 03/25/23 Dakota Tatum MD Assigned Heart and Vascular Provider 05/01/23 11/09/24 [place] [address] [place], [facility] [address] [place] [address] Assigned Musculoskeletal Provider 04/12/24 Johanne Gutierrez RN RN Clinical Product Navigator Primary Care - CC 08/18/24 08/18/24 Linda Ambriz, [facility] Lead Supervisor [address] 08/18/24 08/23/24 documented as of this encounter
--- OUTSIDE RECORDS SUMMARY | 2025-02-24 20:53 | XMS_ITS | Encounter Summary ---
Author Organization [facility] Address [address] [place] [address] Care Team Providers Care Tourist Home Keeper Name Role Phone Alfreda Ray PA-C Primary Care Provider + Alfreda Ray PA-C Unavailable [phone] Katrin Orellana PA-C Unavailable [phone] Shanna Vang PA-C Unavailable +[phone] Fransisco Eddy MD Unavailable +[phone] Katrin Orellana PA-C Unavailable +[phone] Cristina Hsieh [facility] Unavailable +[phone] Alfreda Ray PA-C Unavailable +[phone] Alfreda Ray PA-C Unavailable +[phone] Cristina Hsieh [facility] Unavailable +[phone] Dakota Tatum MD Unavailable Unava ilable Dakota Tatum MD Unavailable Unava ilable Srinivas Marie DO Unavailable [phone] Johanne Gutierrez RN Unavailable [phone] [facility] Unavailable [phone] Encounter Details Date Type Department Care Team (Late st Contact Info) Description 07/21/2023 [facility] [address] [place], [place] [address] Gia Weller Social History Tobacco Use Types [...] Assigned at Female 08/17/2018 7:56 AM PATIENT TRANSPORT ORDERLY Legal Sex Female 4:24 AM PATIENT TRANSPORT ORDERLY Gender Identity Female 08/17/2018 7:56 AM PATIENT TRANSPORT ORDERLY Sexual Orientation Straight 08/17/2018 7: 56 AM PATIENT TRANSPORT ORDERLY documented as of this encounter Plan of Treatment Upcoming Encounters Date Type Department Care Team (Late st Contact Info) Description 06/28/2025 3:00 PM PATIENT TRANSPORT ORDERLY Office Visit [address] 200 [place] [address] Fransisco Eddy MD [address] [place] [address] documented as of this encounter Visit Diagnoses Not on filedocumented in this encounter Additional Health Concerns Assessment Noted Time PHQ-9 Depression Total Score: 5 03/09/20 23 10:57 AM CDT documented as of this encounter Care Teams Tourist Home Keeper Relationship Specialty Start Date End Date Alfreda Ray PA-C [address] [place] [address] PCP - General Family Medicine 12/30/21 Alfreda Ray PA-C [address] [place] [address] Referring Physician Family Medicine 12/31/21 Katrin Orellana PA-C [address] [place] [address] Physician Inorganic Chemistry Professor Dermatology 12/31/21 Shanna Vang PA-C [address] [place] [address] 593244 Assigned Cancer Care Provider 01/10/22 Fransisco Eddy MD [address] [place] [address] 806025 Assigned Rheumatology Provider 05/09/22 Katrin Orellana PA-C [address] [place] [address] Assigned Surgical Provider 08/15/22 02/10/24 Cristina Hsieh [facility] [address] [place] [address] [place]NA[place]DE[place] [address] Pharmacist Pharmacist 09/07/22 Alfreda Ray PA-C [address] [place] [address] 064352 Assigned Pain Medication Provider 09/05/22 09/10/23 Alfreda Ray PA-C [address] [place] [address] 019232 Assigned PCP 08/29/22 Cristina Hsieh [facility] [address] [address] Assigned MTM Pharmacist 09/26/22 Dakota Tatum MD [address] [address] Cardiovascular Disease 03/25/23 Dakota Tatum MD Assigned Heart and Vascular Provider 05/01/23 11/09/24 [place] [address] [address] Assigned Musculoskeletal Provider 04/12/24 Johanne Gutierrez RN TIFFANIE Clinical Product Navigator Primary Care - CC 08/18/24 08/18/24 Linda Ambriz, [facility] Lead Insurance Healthcare Representative 08/18/24 08/23/24 documented as of this encounter
--- OUTSIDE RECORDS SUMMARY | 2025-02-24 20:53 | XMS_ITS | Encounter Summary ---
Author Organization [place] Address [address] [place] [address] Care Team Providers Care Oracle Programmer Analyst Name Role Phone Alfreda Ray PA-C Primary Care Provider + Alfreda Ray PA-C Unavailable [phone] Katrin Orellana PA-C Unavailable [phone] Shanna Vang PA-C Unavailable +[phone] Fransisco Eddy MD Unavailable +[phone] Katrin Orellana PA-C Unavailable [phone] Cristina Hsieh [facility] Unavailable +[phone] Alfreda Ray PA-C Unavailable + [phone] Alfreda Ray PA-C Unavailable +[phone] Cristina Hsieh [facility] Unavailable [phone] Dakota Tatum MD Unavailable Unava ilable Dakota Tatum MD Unavailable Unava ilable Srinivas Marie DO Unavailable [phone] Johanne Gutierrez RN Unavailable Linda Ambriz [facility] Unavailable [phone] Encounter Details Date Type Department Care Team (Late st Contact Info) Description 06/11/2023 [facility] [address] [place] [address] Gloria Harper, RN Social History Tobacco [...] in an abandoned building, in an overnight penitentiary, or couch-surfing.) Yes 05/18/2023 Are you worried [...] Assigned at Female 08/17/2018 7:56 AM CUSTOMER SUPPORT ANALYST Legal Sex Female 4:24 AM CUSTOMER SUPPORT ANALYST Gender Identity Female 08/17/2018 7:56 AM CUSTOMER SUPPORT ANALYST Sexual Orientation Straight 08/17/2018 7: 56 AM CUSTOMER SUPPORT ANALYST documented as of this encounter Plan of Treatment Upcoming Encounters Date Type Department Care Team (Late st Contact Info) Description 06/28/2025 3:00 PM CUSTOMER SUPPORT ANALYST Office Visit [facility] [address] [place] [phone] Fransisco Eddy MD [address] [place] [address] documented as of this encounter Visit Diagnoses Not on filedocumented in this encounter Additional Health Concerns Assessment Noted Time PHQ-9 Depression Total Score: 5 03/09/20 23 10:57 AM CDT documented as of this encounter Care Teams Oracle Programmer Analyst Relationship Specialty Start Date End Date Alfreda Ray PA-C [address] [place] [address] PCP - General Family Medicine 12/30/21 Alfreda Ray PA-C [address] [place] [address] Referring Physician Family Medicine 12/31/21 Katrin Orellana PA-C [address] [place] [address] Physician Customs Verifier Dermatology 12/31/21 Shanna Vang PA-C [address] [place] [address] 811864 Assigned Cancer Care Provider 01/10/22 Fransisco Eddy MD [address] [place] [address] 221955 Assigned Rheumatology Provider 05/09/22 Katrin Orellana PA-C [address] [place] [address] Assigned Surgical Provider 08/15/22 02/10/24 Cristina Hsieh [facility] [address] [facility] [place] [address] Pharmacist Pharmacist 09/07/22 Alfreda Ray PA-C [address] [place] [address] 772472 Assigned Pain Medication Provider 09/05/22 09/10/23 Alfreda Ray PA-C [address] [place] [address] 600202 Assigned PCP 08/29/22 Cristina Hsieh [facility] [address] [address] Assigned MTM Pharmacist 09/26/22 Dakota Tatum MD [address] [address] Cardiovascular Disease 03/25/23 Dakota Tatum MD Assigned Heart and Vascular Provider 05/01/23 11/09/24 [place] [address] [address] Assigned Musculoskeletal Provider 04/12/24 Johanne Gutierrez RN RN Clinical Product Navigator Primary Care - CC 08/18/24 08/18/24 Linda Ambriz, [facility] Lead Well Puller Head 08/18/24 08/23/24 documented as of this encounter
--- OUTSIDE RECORDS SUMMARY | 2025-02-24 20:53 | XMS_ITS | Encounter Summary ---
Author Organization [facility] Address [address] [place] [address] Care Team Providers Care Citizenship Instructor Name Role Phone Alfreda Ray PA-C Primary Care Provider + Alfreda Ray PA-C Unavailable [phone] Katrin Orellana PA-C Unavailable [phone] Shanna Vang PA-C Unavailable +[phone] Fransisco Eddy MD Unavailable +[phone] Katrin Orellana PA-C Unavailable +[phone] Cristina Hsieh [facility] Unavailable +[phone] Alfreda Ray PA-C Unavailable +[phone] Cristina Hsieh [facility] Unavailable +[phone] Dakota Tatum MD Unavailable Unava ilable Dakota Tatum MD Unavailable Unava ilable Srinivas Marie DO Unavailable [phone] Johanne Gutierrez RN Unavailable [phone] Linda Ambriz [employer]ON COUNTER FEEDER Unavailable [phone] Reason for Visit * Reason Comments Medication Refill Encounter Details Date Type Department Care Team (Late st Contact Info) Description 10/08/2023 Refill [facility] Rheumatology [facility] [address] [facility] [address] [place] [phone] Alfreda Ray PA-C [address] [place] [address] Medication Refill Social History Tobacco Use Types [...] Sex Assigned at Female 08/17/2018 7:56 AM INTERNET APPLICATION DEVELOPER Legal Sex Female 4:24 AM INTERNET APPLICATION DEVELOPER Gender Identity Female 08/17/2018 7:56 AM INTERNET APPLICATION DEVELOPER Sexual Orientation Straight 08/17/2018 7: 56 AM INTERNET APPLICATION DEVELOPER documented as of this encounter Miscellaneous Notes * Telephone Encounter - Natalia Klein CMA - 10/12/2023 4:19 PM CDT Called patient scheduled for BP check in [place] on 10/14/2023. Natalia Klein CMA * Telephone Encounter - Alfreda Ray PA-C - 10/11/2023 12:07 PM CDT Refilled x 90 days. Please advise patient last blood pressure was above goal. Please encourage her to schedule a nurse only blood pressure visit at the [facility] near her home or a [facility] pharmacy. Not due for annual visit until February 2024. If she would like to schedule thisplease assist her in doing so. documented in this encounter Plan of Treatment Upcoming Encounters Date Type Department Care Team (Late st Contact Info) Description 06/28/2025 3:00 PM INTERNET APPLICATION DEVELOPER Office Visit [facility] [address] [address] Fransisco Eddy MD [address] [place] [address] 547295 documented as of this encounter Visit Diagnoses Diagnosis Primary osteoarthritis involving multiple joints documented in this encounter Additional Health Concerns Assessment Noted Time PHQ-9 Depression Total Score: 5 03/09/20 10:57 AM CDT documented as of this encounter Care Teams Citizenship Instructor Relationship Specialty Start Date End Date Alfreda Ray PA-C [address] [place] [address] 758192 PCP - General Family Medicine 12/30/21 Alfreda Ray PA-C [address] [place] [address] Referring Physician Family Medicine 12/31/21 Katrin Orellana PA-C [address] [place] [address] Physician Bolter Helper Dermatology 12/31/21 Shanna Vang PA-C [address] [place] [address] Assigned Cancer Care Provider 01/10/22 Fransisco Eddy MD [address] [place] [address] 165365 Assigned Rheumatology Provider 05/09/22 Ktarin Orellana PA-C [address] [place] [address] Assigned Surgical Provider 08/15/22 02/10/24 Cristina Hsieh [facility] [address] [place] [address] LISBETH HERNANDEZ [address] Pharmacist Pharmacist 09/07/22 Alfreda Ray PA-C [address] [place] [address] Assigned PCP 08/29/22 Cristina Hsieh RP [address] [place] [address] Assigned MTM Pharmacist 09/26/22 Dakota Tatum MD [address] [facility] [address] [place] [address] Cardiovascular Disease 03/25/23 Dakota Tatum MD Assigned Heart and Vascular Provider 05/01/23 11/09/24 [place] [address] [address], [facility] [address] [place] [address] Assigned Musculoskeletal Provider 04/12/24 Johanne Gutierrez RN RN Clinical Product Navigator Primary Care - CC 08/18/24 08/18/24 Linda Ambriz, [facility] Lead Android Ui Developer 08/18/24 08/23/24 documented as of this encounter
--- OUTSIDE RECORDS SUMMARY | 2025-02-24 20:54 | XMS_ITS | Encounter Summary ---
Author Organization [facility] Address [address] [place] [address] Care Team Providers Care Hitting Coach Name Role Phone Esperanza Gatica MD Primary Care Provider + Esperanza Gatica MD Unavailable +[phone] Esperanza Gatica MD Unavailable +[phone] Esperanza Gatica MD Unavailable +[phone] Esperanza Gatica MD Unavailable +[phone] Esperanza Gatica MD Unavailable +[phone] Esperanza Gatica MD Unavailable +[phone] Jesús Orourke MD Unavailable Alfreda RayC Primary Care Provider + Alfreda Ray PA-C Unavailable +[phone] Katrin Orellana PA-C Unavailable [phone] Shanna VangC Unavailable +[phone] Fransisco Eddy MD Unavailable [phone] Esperanza Gatica MD Unavailable +[phone] Esperanza Gatica MD Unavailable +[phone] Katrin Orellnaa PA-C Unavailable [phone] Cristina Hsieh [facility] Unavailable +[phone] Cory Alfreda Liu PA-C Unavailable +[phone] Cory Alfreda Liu PA-C Unavailable [phone] Cristina Hsieh [facility] Unavailable +[phone] Dakota Tatum MD Unavailable Unava ilable Dakota Tatum MD Unavailable Unava ilable Cynthia, Srinivas Unavailable [phone] Brenda Johanne Salome RN Unavailable [phone] Mariana Ambrizie Gallito [facility] Unavailable [phone] Reason for Visit * Reason Onset Date Comments Refill Request 01/20/2015 Simvastatin 20mg Encounter Details Date Type Department Care Team (Late st Contact Info) Description 01/20/2015 MyC Refill [address], [address] [place] [address] [place] [address] [place] [address] Refill Request (Simvastatin 20mg) Social History Tobacco [...] Assigned at Female 08/17/2018 7:56 AM COMMERCIAL APPRAISER Legal Sex Female 4:24 AM COMMERCIAL APPRAISER Gender Identity Female 08/17/2018 7:56 AM COMMERCIAL APPRAISER Sexual Orientation Straight 08/17/2018 7: 56 AM COMMERCIAL APPRAISER documented as of this encounter Miscellaneous Notes * Telephone Encounter - Leigha Rinaldi, RN - 01/21/2015 8:04 AM CDT Simvastatin Last Written Prescription Date: 07/10/2014 Last Fill Quantity: 90, # refills: 1 Last Office Visit with [facility] primary care provider: 12/06/2014 CHOL 137 07/10/2014 HDL 54 07/10/2014 LDL 62 07/10/2014 TRIG 105 07/10/2014 CHOLHDLRATIO 2.5 07/10/2014 Prescription approved per [facility] Refill Protocol. Leigha Rinaldi RN * Telephone Encounter - Leigha Rinaldi RN - 01/21/2015 8:03 AM CDTMessage from [facility]: Original authorizing provider: MD Alexandria Brannon would like a refill of the following medications: simvastatin (ZOCOR) 20 MG tablet [Esperanza Gatica MD] Preferred pharmacy: [id number] Comment: documented in this encounter Plan of Treatment Upcoming Encounters Date Type Department Care Team (Late st Contact Info) Description 06/28/2025 3:00 PM COMMERCIAL APPRAISER Office Visit [facility] [address] [address] Fransisco Eddy MD [address] [place] [address] documented as of this encounter Visit Diagnoses Diagnosis Hyperlipidemia LDL goal <160 Other and unspecified hyperlipidemia documented in this encounter Additional Health Concerns Infection Onset Date Last Indicated Resolved Time Rule Out COVID-19 05/08/2021 05/08/2021 05/09/2021 9:08 PM COMMERCIAL APPRAISER documented as of this encounter Care Teams Hitting Coach Relationship Specialty Start Date End Date Esperanza Gatica MD PCP - General Family Practice 10/13/11 12/29/21 [place] [address] [place] [address] PCP - Assigned PCP 12/05/17 08/23/18 Alfreda Ray PA-C [address] [place] [address] PCP - General Family Medicine 12/30/21 [place] [address] [place] [address] Assigned PCP 12/05/17 09/30/19 [place] [address] [place] [address] Assigned PCP 10/01/19 03/02/20 [place] [address] [place] [address] Assigned PCP 03/03/20 05/25/20 [place] [address] [place] [address] Assigned PCP 05/26/20 09/28/20 [place] [address] [place] [address] Assigned PCP 09/29/20 07/31/22 Jesú[place] [address] [place] [place] [address] Assigned Musculoskeletal Provider 10/20/20 04/17/22 Alfreda Ray PA-C [employer] [place] [address] Referring Physician Family Medicine 12/31/21 Katrin Orellana PA-C [address] [place] [address] 537255 Physician Child Therapist Dermatology 12/31/21 Shanna Vang PA-C [address] [place] [address] [phone] Assigned Cancer Care Provider 01/10/22 Fransisco Eddy MD [address] [place] [address] [phone] Assigned Rheumatology Provider 05/09/22 [place] [address] [place] [address] Assigned Pain Medication Provider 06/29/22 09/04/22 [place] [address] [place] [address] Assigned PCP 08/15/22 08/28/22 Katrin Orellana PA-C [address] [place] [address] [phone] Assigned Surgical Provider 08/15/22 02/10/24 Cristina Hsieh [facility] [address] [facility] LISBETH HERNANDEZ [phone] Pharmacist Pharmacist 09/07/22 Alfreda Ray PA-C [address] [place] [address] 623082 Assigned Pain Medication Provider 09/05/22 09/10/23 Alfreda Ray PA-C 4[address] [place], [place] 083972 Assigned PCP 08/29/22 Cristina Hsieh, [facility] [address] [address] Assigned MTM Pharmacist 09/26/22 Dakota Tatum MD [address] [address] Cardiovascular Disease 03/25/23 Dakota Tatum MD Assigned Heart and Vascular Provider 05/01/23 11/09/24 [place] [address] [address], [address] [address] Assigned Musculoskeletal Provider 04/12/24 Johanne Gutierrez, RN RN Clinical Product Navigator Primary Care - CC 08/18/24 08/18/24 Linda Ambriz, [facility] Lead Compressor Station Engineer 08/18/24 08/23/24 documented as of this encounter
--- OUTSIDE RECORDS SUMMARY | 2025-02-24 20:54 | XMS_ITS | Encounter Summary ---
Author Organization [facility] Address [address] [place] [address] Care Team Providers Care Slot Floor Person Name Role Phone Esperanza Gatica MD Primary Care Provider + Esperanza Gatica MD Unavailable + Jesús Orourke MD Unavailable Alfreda Ray-C Primary Care Provider + Alfreda RayC Unavailable +[phone] Katrin Orellana PA-C Unavailable +[phone] Shanna Vang PA-C Unavailable +[phone] Fransisco Eddy MD Unavailable +[phone] Esperanza Gatica MD Unavailable + sEperanza Gatica MD Unavailable +[phone] Katrin OrellanaC Unavailable +[phone] Cristina Hsieh [facility] Unavailable +[phone] Alfreda Ray PA-C Unavailable +[phone] Alfreda Ray PA-C Unavailable +[phone] Cristina Hsieh [facility] Unavailable [phone] Dakota Tatum MD Unavailable Unava ilDakota Padgett MD Unavailable Unava brittneySrinivas Yun DO Unavailable [phone] Brenda Johanne K RN Unavailable Linda Ambriz [facility] Unavailable [phone] Encounter Details Date Type Department Care Team (Late st Contact Info) Description 07/20/2021 MyC Medical Advice [facility] [address] [place] [address] [place] [address] [place] [address] Social History Tobacco Use Types [...] Sex Assigned at Female 08/17/2018 7:56 AM MOLD DRESSER Legal Sex Female 4:24 AM MOLD DRESSER Gender Identity Female 08/17/2018 7:56 AM MOLD DRESSER Sexual Orientation Straight 08/17/2018 7: 56 AM MOLD DRESSER documented as of this encounter Miscellaneous Notes * Telephone Encounter - So Mathur RN - 07/21/2021 11:34 AM MOLD DRESSER Called the pt. She started with symptoms - July 05. Just yesterday she felt good. She took a home test and she was positive. She also was positive at the [facility]. Today and yesterday she felt better. [...] for her granddaughters wedding in July to [place]. Advised she may want to do an e-visit if she would need a letter stating that she had covid and has recovered. She said she will try to do it the end of this week. DRESSER documented in this encounter Plan of Treatment Upcoming Encounters Date Type Department Care Team (Late st Contact Info) Description 06/28/2025 3:00 PM MOLD DRESSER Office Visit [facility] [address] [place] [phone] Fransisco Eddy MD [address] [place] [address] [id number] documented as of this encounter Visit Diagnoses Not on filedocumented in this encounter Additional Health Concerns Assessment Noted Time PHQ-9 Depression Total Score: 0 08/31/19 21 11:22 AM MOLD DRESSER documented as of this encounter Care Teams Slot Floor Person Relationship Specialty Start Date End Date sEperanza Gatica MD PCP - General Family Practice 10/13/11 12/29/21 Alfreda Ray PA-C [address] [place] [address] [id number] PCP - General Family Medicine 12/30/21 [place] [address] [place] [address] Assigned PCP 09/29/20 07/31/22 Jesú[place] [address] [place] [address] Assigned Musculoskeletal Provider 10/20/20 04/17/22 Alfreda Ray PA-C [address] [place] [address] Referring Physician Family Medicine 12/31/21 Katrin Orellana PA-C [address] [place] [address] Physician Warehouse Packer Dermatology 12/31/21 Shanna Vang PA-C [address] [place] [address] Assigned Cancer Care Provider 01/10/22 Fransisco Eddy MD [address] [place] [address] Assigned Rheumatology Provider 05/09/22 [place] [address] [place] [address] Assigned Pain Medication Provider 06/29/22 09/04/22 [place] [address] [place] [address] Assigned PCP 08/15/22 08/28/22 Katrin Orellana PA-C [address] [place] [address] Assigned Surgical Provider 08/15/22 02/10/24 Cristina Hsieh [facility] [address] [place] [address] [place] [address] Pharmacist Pharmacist 09/07/22 Alfreda Ray PA-C [address] [place] [address] Assigned Pain Medication Provider 09/05/22 09/10/23 Alfreda Ray PA-C [address]151 [place] [address] Assigned PCP 08/29/22 Cristina Hsieh, [facility] [address] [address] Assigned MTM Pharmacist 09/26/22 Dakota Tatum MD [address] [address] Cardiovascular Disease 03/25/23 Dakota Tatum MD Assigned Heart and Vascular Provider 05/01/23 11/09/24 [place] [address] [facility] [facility] [address] [address] Assigned Musculoskeletal Provider 04/12/24 Johanne Gutierrez, RN RN Clinical Product Navigator Primary Care - CC 08/18/24 08/18/24 Linda Ambriz, [facility] Lead Medical Manager 08/18/24 08/23/24 documented as of this encounter
--- OUTSIDE RECORDS SUMMARY | 2025-02-24 20:54 | XMS_ITS | Encounter Summary ---
Author Organization [facility] Address [address] [place] [address] Care Team Providers Care Aeronautical Inspector Name Role Phone Alfa Marcelo MD Primary Care Provider Ajay Dailey MD Primary Care Provider [phone] Esperanza Gatica MD Primary Care Provider Esperanza Gatica MD Unavailable +[phone] Esperanza Gatica MD Unavailable +[phone] Esperanza Gatica MD Unavailable +[phone] Esperanza Gatica MD Unavailable [phone] Esperanza Gatica MD Unavailable +[phone] Esperanza Gatica MD Unavailable +[phone] Jesús Orourke MD Unavailable Alfreda RayC Primary Care Provider + Alfreda RayC Unavailable [phone] Katrin OrellanaC Unavailable Shanna Vang-C Unavailable +[phone] Fransisco Eddy MD Unavailable +[phone] Esperanza Gatica MD Unavailable +[phone] Esperanza Gatica MD Unavailable +[phone] Katrin OrellanaC Unavailable Cristina Hsieh [facility] Unavailable +[phone] Cory Alfreda Liu PA-C Unavailable [phone] Cory Alfreda Liu PA-C Unavailable [phone] Cristina Hsieh [facility] Unavailable +[phone] Dakota Tatum MD Unavailable Unava ilable Dakota Tatum MD Unavailable Unava ilable Srinivas Marie DO Unavailable [phone] Johanne Gutierrez RN Unavailable Linda Ambriz [employer] Unavailable [phone] Encounter Details Date Type Department Care Team (Late st Contact Info) Description 11/03/[address] [address] [place] [address] [facility] Note Social History Tobacco Use Types Packs/Day [...] Sex Assigned at Female 08/17/2018 7:56 AM FORMER HAND Legal Sex Female 4:24 AM FORMER HAND Gender Identity Female 08/17/2018 7:56 AM FORMER HAND Sexual Orientation Straight 08/17/2018 7: 56 AM FORMER HAND documented as of this encounter Plan of Treatment Upcoming Encounters Date Type Department Care Team (Late st Contact Info) Description 06/28/2025 3:00 PM FORMER HAND Office Visit [facility] [address] [place] [phone] Fransisco Eddy MD [address] 208[address] documented as of this encounter Visit Diagnoses Diagnosis [facility] Nvdvaxyes-Xesq-RZ Note- Primary documented in this encounter Additional Health Concerns Infection Onset Date Last Indicated Resolved Time Rule Out COVID-19 05/08/2021 05/08/2021 05/09/2021 9:08 PM FORMER HAND documented as of this encounter Care Teams Aeronautical Inspector Relationship Specialty Start Date End Date Alfa Marcelo MD [facility] [address] [facility] [address] [place] [address] PCP - General 01/22/04 01/28/11 Ajay Dailey MD [facility] [address] [facility] [address] [place] [address] PCP - General Family Practice 01/29/11 10/12/11 Esperanza Gatica MD [facility] [address] [facility] [address] [place] [address] PCP - General Family Practice 10/13/11 12/29/21 [place] [address] [place] [address] PCP - Assigned PCP 12/05/17 08/23/18 Alfreda Ray PA-C [address] [place] [address] PCP - General Family Medicine 12/30/21 [place] [address] [place] [address] Assigned PCP 12/05/17 09/30/19 [place] [address] [place] [address] Assigned PCP 10/01/19 03/02/20 [place] [address] [place] [address] Assigned PCP 03/03/20 05/25/20 [place] [address] [place] [address] Assigned PCP 05/26/20 09/28/20 [place] [address] [place] [address] Assigned PCP 09/29/20 07/31/22 Jesú[place] [address] [place] [address] Assigned Musculoskeletal Provider 10/20/20 04/17/22 Alfreda Ray PA-C [address] [place] [address] 164652 Referring Physician Family Medicine 12/31/21 Katrin Orellana PA-C [address] [place] [address] Physician Chainstitch Binder Dermatology 12/31/21 BernShanna Amos PA-C [address] [place] [address] Assigned Cancer Care Provider 01/10/22 Fransisco Eddy MD [address] [place] [address] [address] [place] [address] Assigned Rheumatology Provider 05/09/22 [place] [address] [place] [address] Assigned Pain Medication Provider 06/29/22 09/04/22 [place] [address] [place] [address] Assigned PCP 08/15/22 08/28/22 Katrin Orellana PA-C [address] [place] [address] 98 [place] [address] Assigned Surgical Provider 08/15/22 02/10/24 Cristina Hsieh [facility] [address] [facility] [place]BETH HERNANDEZ [address] Pharmacist Pharmacist 09/07/22 Alfreda Ray PA-C [address] [place] [address] 739432 Assigned Pain Medication Provider 09/05/22 09/10/23 Alfreda Ray PA-C [address] [place] [address] Assigned PCP 08/29/22 Cristina Hsieh, [facility] [address] [address] Assigned MTM Pharmacist 09/26/22 Dakota Tatum MD [address] [address] Cardiovascular Disease 03/25/23 Dakota Tatum MD Assigned Heart and Vascular Provider 05/01/23 11/09/24 [place] [address] [place] , [address] [address] Assigned Musculoskeletal Provider 04/12/24 Johanne Gutierrez RN TIFFANIE Clinical Product Navigator Primary Care - CC 08/18/24 08/18/24 Linda Ambriz, [facility] Lead Radiator Fitter 08/18/24 08/23/24 documented as of this encounter
--- OUTSIDE RECORDS SUMMARY | 2025-02-24 20:54 | XMS_ITS | Encounter Summary ---
Author Organization [place] Address [address] [place] [address] Care Team Providers Care Lift Supervisor Name Role Phone Alfa Marcelo MD Primary Care Provider Ajay Dailey MD Primary Care Provider [phone] Esperanza Gatica MD Primary Care Provider Esperanza Gatica MD Unavailable [phone] Esperanza Gatica MD Unavailable +[phone] Esperanza Gatica MD Unavailable +[phone] Esperanaz Gatica MD Unavailable +[phone] Esperanza Gatica MD Unavailable +[phone] Esperanza Gatica MD Unavailable +[phone] Jesús Orourke MD Unavailable Alfreda RayC Primary Care Provider + Alfreda RayC Unavailable +[phone] Katrin OrellanaC Unavailable Shanna Vang-C Unavailable +[phone] Fransisco Eddy MD Unavailable +[phone] Esperanza Gatica MD Unavailable +[phone] Esperanza Gatica MD Unavailable +[phone] Katrin Orellana-C Unavailable Cristina Hsieh [facility] Unavailable +[phone] Alfreda Ray Alexa LOERAC Unavailable [phone] Ho Raymustapha LOERAC Unavailable + [phone] Cristina Hsieh [facility] Unavailable +[phone] Dakota Tatum MD Unavailable Unava ilable Dakota Tatum MD Unavailable Unava ilable CynthiaSrinivas Unavailable [phone] Johanne Gutierrez RN Unavailable +[phone] Linda Ambriz AUDIOLOGY ASSISTANT Unavailable + [phone] Reason for Visit * Reason Onset Date Comments Refill Request 04/08/2009 Atenolol and Howard phong Slk Encounter Details Date Type Department Care Team (Late st Contact Info) Description 04/08/2009 MyC Refill [address] [address] Mary Haas MD Refill Request (Atenolol and Vicodin Slk) Social History Tobacco Use Types Packs/Day Years Used Date Smoking Tobacco: Former Cigarettes Q uit: 06/21/1973 Alcohol Use Standard Drinks/Week Comments Yes 0 (1 standard drink = 0.6 oz pur e alcohol) rarely Comments No Sex and Gender Information Value Date Recorded Sex Assigned at Female 08/17/2018 7:56 AM RETAIL GIFT CARD MERCHANDISING Legal Sex Female 4:24 AM RETAIL GIFT CARD MERCHANDISING Gender Identity Female 08/17/2018 7:56 AM RETAIL GIFT CARD MERCHANDISING Sexual Orientation Straight 08/17/2018 7: 56 AM RETAIL GIFT CARD MERCHANDISING documented as of this encounter Miscellaneous Notes [...] Rene - 04/08/2009 10:25 AM CDTMessage [facility]: Alexandria Bradshaw would like a refill of the following medications: ATENOLOL 25 MG OR TABS [CARISSA PAGAN] Preferred pharmacy: [facility] Comment: I have switched Doctors to Mary Haas in [place]. Thank you. documented in this encounter Plan of Treatment Upcoming Encounters Date Type Department Care Team (Late st Contact Info) Description 06/28/2025 3:00 PM RETAIL GIFT CARD MERCHANDISING Office Visit [facility] [address] [address] Fransisco Eddy MD [address] [place] [address] documented as of this encounter Visit Diagnoses Diagnosis Tinnitus Unspecified tinnitus Pain in limb documented in this encounter Additional Health Concerns Infection Onset Date Last Indicated Resolved Time Rule Out COVID-19 05/08/2021 05/08/2021 05/09/2021 9:08 PM RETAIL GIFT CARD MERCHANDISING documented as of this encounter Care Teams Lift Supervisor Relationship Specialty Start Date End Date Alfa Marcelo MD [address] [facility] [address] [place] [address] PCP - General 01/22/04 01/28/11 Ajay Dailey MD [address] [facility] [address] [place] [address] PCP - General Family Practice 01/29/11 10/12/11 Esperanza Gatica MD [address] [address] PCP - General Family Practice 10/13/11 12/29/21 [place] [address] [place] [address] PCP - Assigned PCP 12/05/17 08/23/18 Alfreda Ray PA-C [address] [place] [address] PCP - General Family Medicine 12/30/21 [place] [address] [place]B[address] GARCIA [address] Assigned PCP 12/05/17 09/30/19 [place] [address] [place] [address] Assigned PCP 10/01/19 03/02/20 [place] [address] [place] [address] Assigned PCP 03/03/20 05/25/20 [place] [address] [place] [address] Assigned PCP 05/26/20 09/28/20 [place] [address] [place] [address] Assigned PCP 09/29/20 07/31/22 [place] [address] [address] [facility] [place] [address] Assigned Musculoskeletal Provider 10/20/20 04/17/22 Alfreda Ray PA-C [address] [place] [address] [phone] Referring Physician Family Medicine 12/31/21 Katrin Orellana PA-C [address] [place] [address] [phone] Physician Marine Welder Dermatology 12/31/21 Shanna Vang PA-C [address] [place] [address] 171994 Assigned Cancer Care Provider 01/10/22 Fransisco Eddy MD [address] [place] [address] [address] [place] [address] Assigned Rheumatology Provider 05/09/22 [place] [address] [address] [facility] [address] Assigned Pain Medication Provider 06/29/22 09/04/22 [place] [address] [address] [facility] [place] [address] Assigned PCP 08/15/22 08/28/22 Katrin Orellana PA-C [address] [place] [address] Assigned Surgical Provider 08/15/22 02/10/24 Cristina Hsieh [facility] [address] [facility] LISBETH HERNANDEZ [address] Pharmacist Pharmacist 09/07/22 Alfreda Ray PA-C [address] [place] [address] Assigned Pain Medication Provider 09/05/22 09/10/23 Alfreda Ray PA-C [address] [place] [address] Assigned PCP 08/29/22 Cristina Hsieh [facility] [address] [address] Assigned MTM Pharmacist 09/26/22 Dakota Tatum MD 1600 [facility] 101 [place] [address] Cardiovascular Disease 03/25/23 Dakota Tatum MD Assigned Heart and Vascular Provider 05/01/23 11/09/24 [place] [address] [address] , [facility] 300 [place] [address] Assigned Musculoskeletal Provider 04/12/24 Johanne Gutierrez RN RN Clinical Product Navigator Primary Care - CC 08/18/24 08/18/24 Linda Ambriz, [facility] Lead Suture Polisher 08/18/24 08/23/24 documented as of this encounter
--- OUTSIDE RECORDS SUMMARY | 2025-02-24 20:54 | XMS_ITS | Encounter Summary ---
Author Organization [facility] Address [address] [place] [address] Care Team Providers Care Special Education Secretary Name Role Phone Esperanza Gatica MD Primary Care Provider + Esperanza Gatica MD Unavailable +[phone] Esperanza Gatica MD Unavailable +[phone] Esperanza Gatica MD Unavailable +[phone] Esperanza Gatica MD Unavailable +[phone] Esperanza Gatica MD Unavailable +[phone] Esperanza Gatica MD Unavailable +[phone] Jesús Orourke MD Unavailable Alfreda RayC Primary Care Provider + Alfreda Ray PA-C Unavailable +[phone] Katrin Orellana PA-C Unavailable [phone] Shanna VangC Unavailable +[phone] Fransisco Eddy MD Unavailable [phone] Esperanza Gatica MD Unavailable +[phone] Esperanza Gatica MD Unavailable +[phone] Katrin Orellana PA-C Unavailable Cristina Hsieh [facility] Unavailable +[phone] Cory Alfreda Liu PA-C Unavailable [phone] Ho Raymustapha Liu PA-C Unavailable +[phone] Cristina Hsieh [facility] Unavailable +[phone] Dakota Tatum MD Unavailable Unava ilable Dakota Tatum MD Unavailable Unava ilable CynthiaSrinivas Unavailable +[phone] Brenda Johanne Salome MORENO Unavailable [phone] [facility] Unavailable +[phone] Reason for Visit * Reason Onset Date Comments Refill Request 03/18/2015 Lisinopril-HCTZ Encounter Details Date Type Department Care Team (Late st Contact Info) Description 03/18/2015 MyC Refill [address], [address] [place] [address] [place] [address] [place] [address] Refill Request (Lisinopril-HCTZ) Social History [...] Assigned at Female 08/17/2018 7:56 AM SHEET FINISHER Legal Sex Female 4:24 AM SHEET FINISHER Gender Identity Female 08/17/2018 7:56 AM SHEET FINISHER Sexual Orientation Straight 08/17/2018 7: 56 AM SHEET FINISHER documented as of this encounter Miscellaneous Notes * Telephone Encounter - Leigha Rinaldi RN - 03/18/2015 11:02 AM CDT Lisinopril-HCTZ Last Written Prescription Date: 12/24/2014 Last Fill Quantity: 90, # refills: 0 Last Office Visit with [facility] primary care provider: 12/06/2014 Next 5 appointments (look out 90 days) Apr 02, 2015 10:00 AM Pre-Op physical with Esperanza Gatica MD [facility] ([facility]) [facility], [facility] 100 [facility] [address] POTASSIUM Date Value Ref Range Status 07/10/2014 4.3 3.4 - 5.3 mmol/L Final CREATININE Date Value Ref Range Status 07/10/2014 0.89 0.52 - 1.04 mg/dL Final BP Readings from Last 3 Encounters: 12/06/14 126/64 08/07/14 130/88 07/10/14 116/60 Prescription approved per [facility] Refill Protocol. Leigha Rinaldi RN * Telephone Encounter - Leigha Rinaldi RN - 03/18/2015 11:01 AM CDTMessage from [facility]: Original authorizing provider: MD Alexandria Brannon would like a refill of the following medications: lisinopril-hydrochlorothiazide (PRINZIDE,ZESTORETIC) 10-12.5 MG per tablet [Esperanza Gatica MD] Preferred pharmacy: [id number] [address] Comment: documented in this encounter Plan of Treatment Upcoming Encounters Date Type Department Care Team (Late st Contact Info) Description 06/28/2025 3:00 PM SHEET FINISHER Office Visit [facility] [address] 200 [place] [address] Fransisco Eddy MD [address] [place] [address] documented as of this encounter Visit Diagnoses Diagnosis HTN (hypertension), benign Essential hypertension, benign documented in this encounter Additional Health Concerns Infection Onset Date Last Indicated Resolved Time Rule Out COVID-19 05/08/2021 05/08/2021 05/09/2021 9:08 PM SHEET FINISHER documented as of this encounter Care Teams Special Education Secretary Relationship Specialty Start Date End Date Esperanza Gatica MD PCP - General Family Practice 10/13/11 12/29/21 [place] [address] [address] GARCIA [address] PCP - Assigned PCP 12/05/17 08/23/18 Alfreda Ray PA-C [address] [place] [address] PCP - General Family Medicine 12/30/21 [place] [address] [address]ARCIA [address] Assigned PCP 12/05/17 09/30/19 [place] [address] [address]IA [address] Assigned PCP 10/01/19 03/02/20 [place] [address] [address]ARCIA [address] Assigned PCP 03/03/20 05/25/20 [place] [address] [address] [address] Assigned PCP 05/26/20 09/28/20 [place] [address] [address]ARCIA [address] Assigned PCP 09/29/20 07/31/22 Jesú[place] [address] [address] Assigned Musculoskeletal Provider 10/20/20 04/17/22 Alfreda Ray PA-C [address] [place] [address] [phone] Referring Physician Family Medicine 12/31/21 Katrin Orellana PA-C [address] [place] [address] 829185 Physician Sharepoint Administrator Dermatology 12/31/21 Shanna Vang PA-C [address] [place] [address] 305784 Assigned Cancer Care Provider 01/10/22 Fransisco Eddy MD [address] [place] [address] 436685 Assigned Rheumatology Provider 05/09/22 [place] [address] [address]ARCIA [address] Assigned Pain Medication Provider 06/29/22 09/04/22 [place] [address] [address] GARCIA [address] Assigned PCP 08/15/22 08/28/22 Katrin Orellana PA-C [address] [place] [address] Assigned Surgical Provider 08/15/22 02/10/24 Cristina Hsieh [facility] [address] [facility] [address] Pharmacist Pharmacist 09/07/22 Alfreda Ray PA-C [address] [place] [address] [phone] Assigned Pain Medication Provider 09/05/22 09/10/23 Alfreda Ray PA-C [address] [place] [address] 027402 Assigned PCP 08/29/22 Cristina Hsieh [facility] 1600 [facility] 101 [place] [address] Assigned MTM Pharmacist 09/26/22 Dakota Tatum MD [address] [address] Cardiovascular Disease 03/25/23 Dakota Tatum MD Assigned Heart and Vascular Provider 05/01/23 11/09/24 [place] [address] [place] , [facility] 300 [place] [address] Assigned Musculoskeletal Provider 04/12/24 Johanne Gutierrez, RN RN Clinical Product Navigator Primary Care - CC 08/18/24 08/18/24 Linda Ambriz, [facility] Lead Supervisor Weaving 08/18/24 08/23/24 documented as of this encounter
--- OUTSIDE RECORDS SUMMARY | 2025-02-24 20:54 | XMS_ITS | Encounter Summary ---
Author Organization [facility] Address [address] [place] [address] Care Team Providers Care Elastic Yarn Twister Helper Name Role Phone Alfreda Ray PA-C Primary Care Provider + Alfreda Ray PA-C Unavailable [phone] Katrin Orellana PA-C Unavailable Shanna Vang PA-C Unavailable [phone] Fransisco Eddy MD Unavailable Cristina Hsieh [facility] Unavailable Alfreda Ray PA-C Unavailable Cristina Hsieh [facility] Unavailable Dakota Tatum MD Unavailable Unava ilSrinivas Yun DO Unavailable [phone] Reason for Visit * Reason Onset Date Comments ANNUAL 02/15/2025 Encounter Details Date Type Department Care Team (Late st Contact Info) Description 02/15/[address] [address] Alfreda Ray PA-C [address] [place] [address] ANNUAL Social History Tobacco Use Types Packs/Day Years [...] re latives? Once a week 03/15/2024 Attends Sabianist Services Not on file 03/15 Active Member of Clubs or Organizations Not on f ile 03/15/2024 Attends Club or Organization Meetings Not on anu e 03/15/2024 Marital Status Not on file 03/15/2024 PHQ-2 Answer Date Recorded PHQ-2 Score 0 03/16/2024 [facility] - Occupational [...] Sex Assigned at Female 08/17/2018 7:56 AM TURN DOWN MAN Legal Sex Female 4:24 AM TURN DOWN MAN Gender Identity Female 08/17/2018 7:56 AM TURN DOWN MAN Sexual Orientation Straight 08/17/2018 7: 56 AM TURN DOWN MAN documented as of this encounter Miscellaneous Notes * Telephone Encounter - Srinath Eddy - 02/15/2025 2:55 PM CDT Call attempt 06/23. LVM for patient to schedule annual wellness exam due Now. On callback, please assist patient in scheduling Medicare AWV. Please close encounter when scheduled. Srinath Eddy documented in this encounter Plan of Treatment Upcoming Encounters Date Type Department Care Team (Late st Contact Info) Description 06/28/2025 3:00 PM TURN DOWN MAN Office Visit [facility] [address] [address] Fransisco Eddy MD [address] [place] [address] documented as of this encounter Visit Diagnoses Not on filedocumented in this encounter Additional Health Concerns Assessment Noted Time PHQ-9 Depression Total Score: 5 03/09/20 23 10:57 AM CDT documented as of this encounter Care Teams Elastic Yarn Twister Helper Relationship Specialty Start Date End Date Alfreda Ray PA-C [address] [place] [address] PCP - General Family Medicine 12/30/21 Alfreda Ray PA-C [address] [place] [address] Referring Physician Family Medicine 12/31/21 Katrin Orellana PA-C [address] [place] [address] 335585 Physician Security Developer Dermatology 12/31/21 Shanna Vang PA-C [address] [place] [address] 081294 Assigned Cancer Care Provider 01/10/22 Fransisco Eddy MD [address] [place] [address] [phone] Assigned Rheumatology Provider 05/09/22 Cristina Hsieh [facility] 3[address] [facility] LISBETH HERNANDEZ [phone] Pharmacist Pharmacist 09/07/22 Alfreda Ray PA-C [address] [place] [address] Assigned PCP 08/29/22 Cristina Hsieh [facility] [address] [phone] Assigned MTM Pharmacist 09/26/22 Dakota Tatum MD 1600 [facility] 101 [place] [address] Cardiovascular Disease 03/25/23 [place] [address] [address], [facility] 300 [place] [address] Assigned Musculoskeletal Provider 04/12/24 documented as of this encounter
--- OUTSIDE RECORDS SUMMARY | 2025-02-24 20:54 | XMS_ITS | Encounter Summary ---
Author Organization [place] Address [address] [place] [address] Care Team Providers Care Vault Clerk Name Role Phone Alfreda Ray PA-C Primary Care Provider + Alfreda Ray PA-C Unavailable [phone] Katrin Orellana PA-C Unavailable [phone] Shanna Vang PA-C Unavailable [phone] Fransisco Eddy MD Unavailable [phone] Katrin Orellana PA-C Unavailable [phone] Critsina Hsieh [facility] Unavailable [phone] Alfreda Ray PA-C Unavailable [phone] Cristina Hsieh [facility] Unavailable [phone] Dakota Tatum MD Unavailable Unava ilable Dakota Tatum MD Unavailable Unava ilable Srinivas Marie DO Unavailable [phone] Johanne Gutierrez RN Unavailable [phone] Linda AmbrizSW Unavailable [phone] Encounter Details Date Type Department Care Team (Late st Contact Info) Description 10/21/2023 MyC Medical Advice [facility] [address] [facility] 1st [place] [address] Gruendemann, [place] Social History Tobacco Use [...] in an overnight snf, or couch-surfing.) Yes 05/18/2023 Are you worried [...] Sex Assigned at Female 08/17/2018 7:56 AM SPOUTING INSTALLER Legal Sex Female 4:24 AM SPOUTING INSTALLER Gender Identity Female 08/17/2018 7:56 AM SPOUTING INSTALLER Sexual Orientation Straight 08/17/2018 7: 56 AM SPOUTING INSTALLER documented as of this encounter Plan of Treatment Upcoming Encounters Date Type Department Care Team (Late st Contact Info) Description 06/28/2025 3:00 PM SPOUTING INSTALLER Office Visit [facility] [address] 200 [place] [address] Fransisco Eddy MD [address] [place] [address] documented as of this encounter Visit Diagnoses Not on filedocumented in this encounter Additional Health Concerns Assessment Noted Time PHQ-9 Depression Total Score: 5 03/09/20 10:57 AM CDT documented as of this encounter Care Teams Vault Clerk Relationship Specialty Start Date End Date Alfreda Ray PA-C [address] [place] [address] PCP - General Family Medicine 12/30/21 Alfreda Ray PA-C [address] [place] [address] Referring Physician Family Medicine 12/31/21 Katrin Orellana PA-C [address] [place] [address] Physician Ore Storage Drier Dermatology 12/31/21 Shanna Vang PA-C [address] [place] [address] 858044 Assigned Cancer Care Provider 01/10/22 Fransisco Eddy MD [address] [place] [address] Assigned Rheumatology Provider 05/09/22 Katrin Orellana PA-C 420 [facility] 98 [place] [address] Assigned Surgical Provider 08/15/22 02/10/24 Cristina Hsieh [facility] 3305 [facility] LISBETH HERNANDEZ [address] Pharmacist Pharmacist 09/07/22 Alfreda Ray PA-C 4151 [place], [place] 577512 Assigned PCP 08/29/22 Cristina Hsieh [facility] 1600 [facility] 101 [place] [address] Assigned MTM Pharmacist 09/26/22 Dakota Tatum MD 1600 [facility] 101 [place] [address] Cardiovascular Disease 03/25/23 Dakota Tatum MD Assigned Heart and Vascular Provider 05/01/23 11/09/24 [place] [address] [facility] 300 [place] [address] Assigned Musculoskeletal Provider 04/12/24 Johanne Gutierrez, RN RN Clinical Product Navigator Primary Care - CC 08/18/24 08/18/24 Linda Ambriz, [facility] Lead Recreational Specialist 08/18/24 08/23/24 documented as of this encounter
--- OUTSIDE RECORDS SUMMARY | 2025-02-24 20:54 | XMS_ITS | Encounter Summary ---
Author Organization [place] Address [address] [place] [address]. [place] [address] Care Team Providers Care Vertical Contour Band Saw Operator Name Role Phone Alfreda Ray PA-C Primary Care Provider + Alfreda Ray PA-C Unavailable [phone] Katrin Orellana PA-C Unavailable [phone] Shanna Vang PA-C Unavailable [phone] Fransisco Eddy MD Unavailable [phone] Katrin Orellana PA-C Unavailable [phone] Cristina Hsieh [facility] Unavailable [phone] RayAlfreda olvera PA-C Unavailable + [phone] Alfreda Ray PA-C Unavailable [phone] Cristina Hsieh [facility] Unavailable [phone] Dakota Tatum MD Unavailable Unava ilable Dakota Tatum MD Unavailable Unava ilable Srinivas Marie DO Unavailable Johanne Gutierrez RN Unavailable [phone] Linda Ambriz [facility] Unavailable [phone] Encounter Details Date Type Department Care Team (Late st Contact Info) Description 12/28/2022 MyC Medical Advice PHARMACY [address] [place] [address], [place] [phone] TeteGia everett Social History Tobacco Use Types Packs/Day Years [...] Assigned at Female 08/17/2018 7:56 AM TILE MASON Legal Sex Female 4:24 AM TILE MASON Gender Identity Female 08/17/2018 7:56 AM TILE MASON Sexual Orientation Straight 08/17/2018 7: 56 AM TILE MASON COVID-19 Exposure Response Date Recorded In the last 10 days, have yo u been in contact with someone who was confirmed or suspected to have Coronavirus/COVID-19? No / Unsure 11/30/2022 2:01 PM CDT documented as of this encounter Plan of Treatment Upcoming Encounters Date Type Department Care Team (Late st Contact Info) Description 06/28/2025 3:00 PM TILE MASON Office Visit [facility] [address] [phone] Fransisco Eddy MD [address] [place] [address] documented as of this encounter Visit Diagnoses Not on filedocumented in this encounter Additional Health Concerns Assessment Noted Time PHQ-9 Depression Total Score: 4 09/05/19 22 10:39 AM CDT documented as of this encounter Care Teams Vertical Contour Band Saw Operator Relationship Specialty Start Date End Date Alfreda Ray PA-C [address] [place] [address] PCP - General Family Medicine 12/30/21 Alfreda Ray PA-C [address] [place] [address] 769562 Referring Physician Family Medicine 12/31/21 Katrin Orellana PA-C [address] [place] [address] 932365 Physician Fern Gatherer Dermatology 12/31/21 Shanna Vang PA-C [address] [place] [address] 350104 Assigned Cancer Care Provider 01/10/22 Fransisco Eddy MD [address] [place] [address] [phone] Assigned Rheumatology Provider 05/09/22 Katrin Orellana PA-C [address] [place] [address] [phone] Assigned Surgical Provider 08/15/22 02/10/24 Cristina Hsieh [facility] 3[address] [facility] LISBETH HERNANDEZ [address] Pharmacist Pharmacist 09/07/22 Alfreda Ray PA-C [address] [place] [address] 499962 Assigned Pain Medication Provider 09/05/22 09/10/23 Alfreda Ray PA-C [address] [place] [address] 537772 Assigned PCP 08/29/22 Cristina Hsieh [facility] [address] [phone] Assigned MTM Pharmacist 09/26/22 Dakota Tatum MD 1600 [facility] 101 [place] [address] Cardiovascular Disease 03/25/23 Dakota Tatum MD Assigned Heart and Vascular Provider 05/01/23 11/09/24 [place] [address] CE[address] G[address]ELUM, [facility] 300 [place] [address] Assigned Musculoskeletal Provider 04/12/24 Johanne Gutierrez RN TIFFANIE Clinical Product Navigator Primary Care - CC 08/18/24 08/18/24 Linda Ambriz, [facility] Lead Machinist Job Setter 08/18/24 08/23/24 documented as of this encounter
--- OUTSIDE RECORDS SUMMARY | 2025-02-24 20:54 | XMS_ITS | Encounter Summary ---
Author Organization [place] Address [address] [place] [address] Care Team Providers Care Medical Billing Manager Name Role Phone Esperanza Gatica MD Primary Care Provider + sEperanza Gatica MD Unavailable + Jesús Orourke MD Unavailable Alfreda Ray-C Primary Care Provider + Alfreda RayC Unavailable +[phone] Katrin Orellana PA-C Unavailable +[phone] Shanna Vang PA-C Unavailable +[phone] Fransisco Eddy MD Unavailable +[phone] Esperanza Gatica MD Unavailable + Esperanza Gatica MD Unavailable +[phone] Katrin OrellanaC Unavailable +[phone] Cristina Hsieh [facility] Unavailable [phone] Alfreda Ray PA-C Unavailable +[phone] Alfreda Ray PA-C Unavailable +[phone] Cristina Hsieh [facility] Unavailable [phone] Dakota Tatum MD Unavailable Unava ilDakota Padgett MD Unavailable Unava pamela Srinivas Marie DO Unavailable [phone] Johanne Gutierrez RN Unavailable [phone] Linda Ambriz [facility] Unavailable [phone] Reason for Referral * Consultation (Routine: Next available opening) - Closed Specialty Diagnoses / Procedures Referred By Contac t Referred To Contact Rheumatology Diagnoses Rheumatoid factor positive Polyarthralgia Alfreda Ray PA-C [address] [place] [address] Phone: tel: fax: Referral ID Status Reason Start Date Expiration Date Visits Re quested Visits Authorized [id number] Closed 10/07/2021 10/07/2022 1 1 Question Answer Reason for Referral Joint Pain, Other (Use Comments) - POS RA - persistent joint pain Scheduling Instructions: [facility] Rheumatology Chemist Internship will call you to coordinate your care as prescribed by your provider. A medical center representative will call you within 1 business day to help schedule your appointment, or you may contact the Chemist Internship Lending Consultant at [phone]. Comments Please be aware that coverage of these services is subject to the terms and limitations of your health insurance plan. Call member services at your health plan with any benefit or coverage questions. [facility] Rheumatology Chemist Internship will call you to coordinate your care as prescribed by your provider. A medical center representative will call you within 1 business day to help schedule your appointment, or you may contact the Chemist Internship Lending Consultant at [phone]. Reason for Visit * Reason Onset Date Comments MyChart Communication 10/05/2021 Encounter Details Date Type Department Care Team (Late st Contact Info) Description 10/05/2021 MyC Medical Advice [address] [place] [phone] Alfreda Ray PA-C [address] [place] [address] [phone] [employer] Communication Social History Tobacco Use Types Packs/Day [...] Sex Assigned at Female 08/17/2018 7:56 AM LABORER LABORATORY Legal Sex Female 4:24 AM LABORER LABORATORY Gender Identity Female 08/17/2018 7:56 AM LABORER LABORATORY Sexual Orientation Straight 08/17/2018 7: 56 AM LABORER LABORATORY COVID-19 Exposure Response Date Recorded In the [...] advise Thank you Camila Ackerman RN, BSN [place] Triage documented in this encounter Plan of Treatment Upcoming Encounters Date Type Department Care Team (Late st Contact Info) Description 06/28/2025 3:00 PM LABORER LABORATORY Office Visit [facility] [address] [phone] Fransisco Eddy MD [address] [place] [address] Scheduled Referrals Name Type Priority Associated Diagnoses Order Schedule Adult Rheumatology Chemist Internship Referral Referral Routine: Next available opening Rheumatoid [...] as of this encounter Care Teams Medical Billing Manager Relationship Specialty Start Date End Date Esperanza Gatica MD PCP - General Family Practice 10/13/11 12/29/21 Alfreda Ray PA-C [address] [place] [address] PCP - General Family Medicine 12/30/21 [place] [address] [place] [address] Assigned PCP 09/29/20 07/31/22 Jesú[place] [address] [address] Assigned Musculoskeletal Provider 10/20/20 04/17/22 Alfreda Ray PA-C [address] [place] [address] [phone] Referring Physician Family Medicine 12/31/21 Katrin Orellana PA-C [address] [place] [address] 834525 Physician It Generalist Dermatology 12/31/21 Shanna Vang PA-C [address] [place] [address] 428984 Assigned Cancer Care Provider 01/10/22 Fransisco Eddy MD [address] [place] [address] Assigned Rheumatology Provider 05/09/22 [place] [address] [place] [address] Assigned Pain Medication Provider 06/29/22 09/04/22 [place] [address] [place] [address] Assigned PCP 08/15/22 08/28/22 Katrin Orellana PA-C [address] [place] [address] Assigned Surgical Provider 08/15/22 02/10/24 Cristina Hsieh [facility] [address] [facility] [address] [address] Pharmacist Pharmacist 09/07/22 Alfreda Ray PA-C [address] [place] [address] Assigned Pain Medication Provider 09/05/22 09/10/23 Alfreda Ray PA-C [address] [place] [address] Assigned PCP 08/29/22 Cristina Hsieh [facility] [address] [address] Assigned MTM Pharmacist 09/26/22 Dakota Tatum MD [address] [place] [address] Cardiovascular Disease 03/25/23 Dakota Tatum MD Assigned Heart and Vascular Provider 05/01/23 11/09/24 [place] [address] [address], [facility] [address] [place] [address] Assigned Musculoskeletal Provider 04/12/24 Johanne Gutierrez RN RN Clinical Product Navigator Primary Care - CC 08/18/24 08/18/24 Linda Ambriz, [facility] Lead Puff Ironer 08/18/24 08/23/24 documented as of this encounter
--- OUTSIDE RECORDS SUMMARY | 2025-02-24 20:54 | XMS_ITS | Encounter Summary ---
Author Organization [place] Address [address] [place] [address] Care Team Providers Care Debt Management Counselor Name Role Phone Alfreda Ray PA-C Primary Care Provider + Alfreda Ray PA-C Unavailable [phone] Katrin Orellana PA-C Unavailable [phone] Shanna Vang PA-C Unavailable [phone] Fransisco Eddy MD Unavailable +[phone] Katrin Orellana PA-C Unavailable [phone] [facility] Unavailable [phone] RayAlfreda olvera PA-C Unavailable [phone] Alfreda Ray PA-C Unavailable [phone] [facility] Unavailable [phone] Dakota Tatum MD Unavailable Unava ilable Dakota Tatum MD Unavailable Unava ilable Srinivas Marie DO Unavailable [phone] Johanne Gutierrez RN Unavailable [phone] Linda Ambriz [facility] Unavailable [phone] Encounter Details Date Type Department Care Team (Late st Contact Info) Description 11/23/2022 [facility] Rhe[facility] Clinic [address] [phone] Fadumo Arboleda RN Social History Tobacco Use Types Packs/Day [...] Sex Assigned at Female 08/17/2018 7:56 AM VARNISHING UNIT TOOL SETTER Legal Sex Female 4:24 AM VARNISHING UNIT TOOL SETTER Gender Identity Female 08/17/2018 7:56 AM VARNISHING UNIT TOOL SETTER Sexual Orientation Straight 08/17/2018 7: 56 AM VARNISHING UNIT TOOL SETTER COVID-19 Exposure Response Date Recorded In the last 10 days, have yo u been in contact with someone who was confirmed or suspected to have Coronavirus/COVID-19? No / Unsure 11/06/2022 6:18 PM CDT documented as of this encounter Plan of Treatment Upcoming Encounters Date Type Department Care Team (Late st Contact Info) Description 06/28/2025 3:00 PM VARNISHING UNIT TOOL SETTER Office Visit [facility] [address] [phone] Fransisco Eddy MD [address] [place] [address] documented as of this encounter Visit Diagnoses Not on filedocumented in this encounter Additional Health Concerns Assessment Noted Time PHQ-9 Depression Total Score: 4 09/05/19 22 10:39 AM CDT documented as of this encounter Care Teams Debt Management Counselor Relationship Specialty Start Date End Date Alfreda Ray PA-C [address] [place] [address] 240452 PCP - General Family Medicine 12/30/21 Alfreda Ray PA-C [address] [place] [address] 322262 Referring Physician Family Medicine 12/31/21 Katrin Orellana PA-C [address] [place] [address] Physician Skip Hoist Engineer Dermatology 12/31/21 Shanna Vang PA-C [address] [place] [address] 729264 Assigned Cancer Care Provider 01/10/22 Fransisco Eddy MD [address] [place] [address] 450655 Assigned Rheumatology Provider 05/09/22 Katrin Orellana PA-C [address] [place] [address] Assigned Surgical Provider 08/15/22 02/10/[address] [facility] [address] [place] [address] Pharmacist Pharmacist 09/07/22 Alfreda Ray PA-C [address] [place] [address] 689242 Assigned Pain Medication Provider 09/05/22 09/10/23 Alfreda Ray PA-C [address] [place] [address] 442042 Assigned PCP 08/29/[address] [facility] [address] [phone] Assigned MTM Pharmacist 09/26/22 Dakota Tatum MD [address] [facility] [address] [place] [address] Cardiovascular Disease 03/25/23 Dakota Tatum MD Assigned Heart and Vascular Provider 05/01/23 11/09/24 [place] [address] [address], [facility] [address] [place] [address] Assigned Musculoskeletal Provider 04/12/24 Johanne Gutierrez RN TIFFANIE Clinical Product Navigator Primary Care - CC 08/18/24 08/18/24 Linda Ambriz [facility] Lead Commissions Coordinator 08/18/24 08/23/24 documented as of this encounter
--- OUTSIDE RECORDS SUMMARY | 2025-02-24 20:54 | XMS_ITS | Encounter Summary ---
Author Organization [place] Address [address] [place] [address] Care Team Providers Care Thread Marker Name Role Phone Esperanza Gatica MD Primary Care Provider + Esperanza Gatica MD Unavailable +[phone] Esperanza Gatica MD Unavailable +[phone] Esperanza Gatica MD Unavailable +[phone] Esperanza Gatica MD Unavailable +[phone] Esperanza Gatica MD Unavailable +[phone] Esperanza Gatica MD Unavailable [phone] Jesús Orourke MD Unavailable Alfreda RayC Primary Care Provider + Alfreda Ray PA-C Unavailable +[phone] Katrin Orellana PA-C Unavailable [phone] Shanna VangC Unavailable [phone] Fransisco Eddy MD Unavailable [phone] Esperanza Gatica MD Unavailable [phone] Esperanza Gatica MD Unavailable [phone] Katrin Orellana PA-C Unavailable Cristina Hsieh [facility] Unavailable [phone] Cory Alfreda Liu PA-C Unavailable +[phone] Ho Raymustapha Liu PA-C Unavailable [phone] Cristina Hsieh [facility] Unavailable [phone] Dakota Tatum MD Unavailable Unava ilable Dakota Tatum MD Unavailable Unava ilable Srinivas Marie Unavailable [phone] Brenda Johanne Salome RN Unavailable [phone] [place] Gallito [facility] Unavailable [phone] Reason for Visit * Reason Onset Date Comments Refill Request 07/04/2015 Edilberto Syed Encounter Details Date Type Department Care Team (Late st Contact Info) Description 07/04/2015 MyC Refill [address], [address] [place] [address] [place] [address] [place] [address] Refill Request (Edilberto Syed) Social [...] Assigned at Female 08/17/2018 7:56 AM SENIOR IT BUSINESS ANALYST Legal Sex Female 4:24 AM SENIOR IT BUSINESS ANALYST Gender Identity Female 08/17/2018 7:56 AM SENIOR IT BUSINESS ANALYST Sexual Orientation Straight 08/17/2018 7: 56 AM SENIOR IT BUSINESS ANALYST documented as of this encounter Miscellaneous Notes * Telephone Encounter - Leigha Rinaldi RN - 07/04/2015 10:51 AM CST [place] Last Written Prescription Date: 01/21/2015 Last Fill Quantity: 90, # refills: 1 Last Office Visit with [facility] primary care provider: 04/08/2015 CHOL 137 07/10/2014 HDL 54 07/10/2014 LDL 62 07/10/2014 TRIG 105 07/10/2014 CHOLHDLRATIO 2.5 07/10/2014 Tenormin Last Written Prescription Date: 01/15/2015 Last Fill Quantity: 90, # refills: 1 Last Office Visit with [facility] primary care provider: 04/08/2015 Future Office Visit: BP Readings from Last 3 Encounters: 04/08/15 112/60 12/06/14 126/64 08/07/14 130/88 Medication is being filled for 1 time refill only due to: Patient needs labs Cholesterol. Leigha Rinaldi RN OR IT BUSINESS ANALYST * Telephone Encounter - Leigha Rinaldi RN - 07/04/2015 10:51 AM CSTMessage from [facility] hospitalNodeable: Original authorizing provider: MD Alexandria Brannon would like a refill of the following medications: atenolol (TENORMIN) 25 MG tablet [Esperanza Gatica MD] simvastatin (ZOCOR) 20 MG tablet [Esperanza Gatica MD] Preferred pharmacy: [id number] Comment: I'm not out of Simvastatin, but we are leaving for a couple of weeks on the & I want to besure I have enough to last until we return. OR IT BUSINESS ANALYST documented in this encounter Plan of Treatment Upcoming Encounters Date Type Department Care Team (Late st Contact Info) Description 06/28/2025 3:00 PM SENIOR IT BUSINESS ANALYST Office Visit [facility] [address] [phone] Fransisco Eddy MD [address] [place] [address] 337045 documented as of this encounter Visit Diagnoses Diagnosis HTN (hypertension), benign Essential hypertension, benign Hyperlipidemia LDL goal <160 Other and unspecified hyperlipidemia documented in this encounter Additional Health Concerns Infection Onset Date Last Indicated Resolved Time Rule Out COVID-19 05/08/2021 05/08/2021 05/09/2021 9:08 PM SENIOR IT BUSINESS ANALYST documented as of this encounter Care Teams Thread Marker Relationship Specialty Start Date End Date Esperanza Gatica MD PCP - General Family Practice 10/13/11 12/29/21 [place] [address] [place] [address] PCP - Assigned PCP 12/05/17 08/23/18 Alfreda Ray PA-C [address] [place] [address] PCP - General Family Medicine 12/30/21 [place] [address] [place] [address] Assigned PCP 12/05/17 09/30/19 [place] [address] [place] [address] Assigned PCP 10/01/19 03/02/20 [place] [address] [place] [address] Assigned PCP 03/03/20 05/25/20 [place] [address] [place] [address] Assigned PCP 05/26/20 09/28/20 [place] [address] [address] [address] Assigned PCP 09/29/20 07/31/22 Jesú[place] [address] [place] [address] Assigned Musculoskeletal Provider 10/20/20 04/17/22 Alfreda Ray PA-C [address] [place], [place] 131092 Referring Physician Family Medicine 12/31/21 Katrin Orellana PA-C [address] [place] [address] [address] [place] [address] Physician Editor In Chief Newspaper Dermatology 12/31/21 Shanna Vang PA-C [facility] [address] 797024 Assigned Cancer Care Provider 01/10/22 Fransisco Eddy MD [address] [place] [address] Assigned Rheumatology Provider 05/09/22 [place] [address] [address] [address] Assigned Pain Medication Provider 06/29/22 09/04/22 [place] [address] [address] [address] Assigned PCP 08/15/22 08/28/22 Katrin Orellana PA-C [address] [address] Assigned Surgical Provider 08/15/22 02/10/24 Cristina Hsieh [facility] [address] [facility] [place] [address] Pharmacist Pharmacist 09/07/22 Alfreda Ray PA-C [address] [place] [address] 193042 Assigned Pain Medication Provider 09/05/22 09/10/23 Alfreda Ray PA-C [address] [place] [address] 969102 Assigned PCP 08/29/22 Cristina Hsieh [facility] [address] [address] Assigned MTM Pharmacist 09/26/22 Dakota Tatum MD [address] [address] Cardiovascular Disease 03/25/23 Dakota Tatum MD Assigned Heart and Vascular Provider 05/01/23 11/09/24 [place] [address] [address], [address] [address] Assigned Musculoskeletal Provider 04/12/24 Johanne Gutierrez, RN RN Clinical Product Navigator Primary Care - CC 08/18/24 08/18/24 Linda Ambriz, [facility] Lead Lead Portfolio Manager 08/18/24 08/23/24 documented as of this encounter
--- OUTSIDE RECORDS SUMMARY | 2025-02-24 20:54 | XMS_ITS | Encounter Summary ---
Author Organization [place] Address [address] [place] [address] Care Team Providers Care Storage Garage Manager Name Role Phone Alfreda Ray PA-C Primary Care Provider + Alfreda RayC Unavailable [phone] Katrin Orellana-C Unavailable [phone] Shanna Vang-C Unavailable [phone] Fransisco Eddy MD Unavailable Cristina Hsieh [facility] Unavailable Alfreda Ray-C Unavailable [phone] Cristina Hsieh [facility] Unavailable Dakota Tatum MD Unavailable Unava ilable Dakota Tatum MD Unavailable Unava ilable Srinivas Marie DO Unavailable [phone] Encounter Details Date Type Department Care Team (Late st Contact Info) Description 09/01/2024 My[facility] Medical Advice PHARMACY [address] [place] [phone] Janie Parada Social History Tobacco Use Types Packs/Day Years [...] re latives? Once a week 03/15/2024 Attends Tenriism Services Not on file 03/15 Active Member of Clubs or Organizations Not on f ile 03/15/2024 Attends Club or Organization Meetings Not on anu e 03/15/2024 Marital Status Not on file 03/15/2024 PHQ-2 Answer Date Recorded PHQ-2 Score 0 03/16/2024 [facility] [place] of Occupat ional Health - Occupational Stress [...] in an overnight penitentiary, or couch-surfing.) Yes 03/15/2024 Are you worried [...] Sex Assigned at Female 08/17/2018 7:56 AM FOUNTAIN SERVER Legal Sex Female 4:24 AM FOUNTAIN SERVER Gender Identity Female 08/17/2018 7:56 AM FOUNTAIN SERVER Sexual Orientation Straight 08/17/2018 7: 56 AM FOUNTAIN SERVER documented as of this encounter Plan of Treatment Upcoming Encounters Date Type Department Care Team (Late st Contact Info) Description 06/28/2025 3:00 PM FOUNTAIN SERVER Office Visit [facility] [address] [phone] Fransisco Eddy MD [address] [place] [address] 107525 documented as of this encounter Visit Diagnoses Not on filedocumented in this encounter Additional Health Concerns Assessment Noted Time PHQ-9 Depression Total Score: 5 03/09/20 23 10:57 AM CDT documented as of this encounter Care Teams Storage Garage Manager Relationship Specialty Start Date End Date Alfreda Ray PA-C [address] [place] [address] PCP - General Family Medicine 12/30/21 Alfreda Ray PA-C [address] [place] [address] Referring Physician Family Medicine 12/31/21 Katrin Orellana PA-C [address] [facility] [address] [place] [address] Physician Airport Operations Manager Dermatology 12/31/21 Shanna Vang PA-C [address] [place] [address] Assigned Cancer Care Provider 01/10/22 Fransisco Eddy MD [address] [place] [address] Assigned Rheumatology Provider 05/09/22 Cristina Hsieh [facility] [address] [facility] [place] [address] Pharmacist Pharmacist 09/07/22 Alfreda Ray PA-C [address] [place] [address] Assigned PCP 08/29/22 Cristina Hsieh [facility] [address] [address] Assigned MTM Pharmacist 09/26/22 Dakota Tatum MD [address] [address] Cardiovascular Disease 03/25/23 Dakota Tatum MD Assigned Heart and Vascular Provider 05/01/23 11/09/24 [place] [address] [address] Assigned Musculoskeletal Provider 04/12/24 documented as of this encounter
--- OUTSIDE RECORDS SUMMARY | 2025-02-24 20:54 | XMS_ITS | Clinical Summary ---
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, unspecified in 06/2024 5852326294 (SNOMED CT) 10/02 Active 10/02 Marcelo Avila MD Post-acute COVID-19 Frequent falls 946770836 (SNOMED CT) 10/02 Active 10/02 Marcelo Avila MD Recurrent falls Proximal muscle weakness 326874425 (SNOMED CT) 10/02 Active 10/02 Marcelo Avila MD Proximal muscle weakness Mild memory disturbance 254110948 (SNOMED CT) 10/02 Active 10/02 Marcelo Avila MD Mild memory disturbance Visual hallucination 85827500 (SNOMED CT) 10/02 Active 10/02 Marcelo Avila MD Visual hallucinations Cognitive disorder 309032515 (SNOMED CT) 10/02 Active 10/02 Marcelo Avila MD Cognitive disorder Medications Medication Instructions Start Date Stop Date Generic Name [facility] Provider NALTREXONE HCL 50 MG TABS Take 25 mg (half tablet) daily x 7 days then 50 mg (1 tablet) daily naltrexone [id number] Lizzie Trinidad RN GABAPENTIN 300 MG CAPS Take 1 capsule by mouth every morning, and take 2 capsule by mouth every evening gabapentin 32228626111 Lizzie Trinidad RN RINVOQ 15 MG [id number] Take 1 tablet by mouth once a day upadacitinib 81202412148 Lizzie Trinidad RN ACETAMINOPHEN 500 MG TABS Take 2 tablets (1,000 mg) by mouth 3 times daily as needed for pain acetaminophen 49677274622 Lizzie Trinidad RN LISINOPRIL-HYDRO CHLOROTHIAZIDE 10-12.5 MG TABS Take 1 tablet by mouth once a day lisinopril-hydroc hlorothiazide 78280785377 Lizzie Trinidad RN POTASSIUM CHLORIDE ER 10 MEQ CR-TABS Take 10 meq by mouth once a day potassium chloride 71212357183 Lizzie Trinidad RN PREDNISONE 1 MG TABS prednisone 45214130185 Lizzie Trinidad RN rivaroxaban ANTICOAGULANT (XARELTO) 10 MG TABS tablet Take 1 tablet by mouth once a day XARELTO Lizziemallika Trinidad RN VALACYCLOVIR HCL 500 MG TABS Take 1 tablet by mouth once a day valacyclovir 04897258743 Lizzie Trinidad RN VITAMIN B-12 1000 MCG TABS Take 1000 mcg by mouth once a day cyanocobalamin (vitamin b-12) 52470920999 Lizzie Trinidad RN PREDNISONE 5 MG TABS Take 1 tablet once a day prednisone 03659323062 Lizzie Trinidad RN XARELTO 10 MG TABS rivaroxaban 50815583546 Lizzie Trinidad RN SIMVASTATIN 20 MG TABS Take 1 tablet by mouth every night simvastatin 73002732117 Marcelo Avila MD LISINOPRIL-HYDRO CHLOROTHIAZIDE 20-12.5 MG TABS Take 1 tablet by mouth once a day lisinopril-hydroc hlorothiazide 17407104431 Marcelo Avila MD PREDNISONE 5 MG TABS Take 1 tablet once a day prednisone 91122138181 Marcelo Avila MD rivaroxaban ANTICOAGULANT (XARELTO) 10 MG TABS tablet Take 1 tablet by mouth once a day XARELTO Marcelo Avila MD LISINOPRIL-HYDRO CHLOROTHIAZIDE 10-12.5 MG TABS Take 1 tablet by mouth once a day lisinopril-hydroc hlorothiazide 13999306785 Marcelo Avila MD RINVOQ 15 MG [id number] Take 1 tablet by mouth once a day upadacitinib 20397937218 Marcelo Avila MD VITAMIN B-12 1000 MCG TABS Take 1000 mcg by mouth once a day cyanocobalamin (vitamin b-12) 70281071945 Marcelo Avila MD VALACYCLOVIR HCL 500 MG TABS Take 1 tablet by mouth once a day valacyclovir 38167110477 Marcelo Avila MD POTASSIUM CHLORIDE ER 10 MEQ CR-TABS Take 10 meq by mouth once a day potassium chloride 03916459115 Marcelo Avila MD ATENOLOL 25 MG TABS Take 1 tablet by mouth once a day atenolol 49356929425 Marcelo Avila MD DULOXETINE HCL 60 MG CPEP Take 1 capsule by mouth every night duloxetine 69350580890 Marcelo Avila MD VALACYCLOVIR HCL 500 MG TABS Take 1 tablet (500 mg) by mouth daily. valacyclovir 00903202931 QIEUSER QIEUSER SIMVASTATIN 20 MG TABS Take 1 tablet (20 mg) by mouth at bedtime. simvastatin 19134647660 QIEUSER QIEUSER rivaroxaban ANTICOAGULANT (XARELTO) 10 MG TABS tablet Take 1 tablet (10 mg) by mouth daily with food. XARELTO QIEUSER QIEUSER RINVOQ 15 MG TF10H-MSO TAKE 1 TABLET (15 MG) BY MOUTH DAILY upadacitinib 57200344471 QIEUSER QIEUSER PREDNISONE 5 MG TABS Take 1 tab daily for 90 days prednisone 58566093924 QIEUSER QIEUSER PREDNISONE 1 MG TABS TAKE 4 TABLETS BY MOUTH DAILY, TAPER PER prednisone 24545113615 QIEUSER QIEUSER POTASSIUM CHLORIDE ER 10 MEQ CR-TABS Take 10 mEq by mouth every 24 hours. potassium chloride 07426911838 QIEUSER QIEUSER NALTREXONE HCL 50 MG TABS Take 25 mg (half tablet) daily x 7 days then 50 mg (1 tablet) daily naltrexone 92576283173 QIEUSER QIEUSER LISINOPRIL-HYDRO CHLOROTHIAZIDE 20-12.5 MG TABS Take 1 tablet by mouth daily at 2 pm. lisinopril-hydroc hlorothiazide 70746007095 QIEUSER QIEUSER LISINOPRIL-HYDRO CHLOROTHIAZIDE 10-12.5 MG TABS Take 1 tablet by mouth daily. lisinopril-hydroc hlorothiazide 27555001506 QIEUSER QIEUSER GABAPENTIN 300 MG CAPS Take 2 capsules (600 mg) by mouth every morning AND 2 capsules (600 mg) daily (with lunch) AND 3 capsules (900 mg) every evening. gabapentin 24546447699 QIEUSER QIEUSER DULOXETINE HCL 60 MG CPEP Take 1 capsule (60 mg) by mouth daily (with dinner). duloxetine 74609468753 QIEUSER QIEUSER VITAMIN B-12 1000 MCG TABS Take 1,000 mcg by mouth daily cyanocobalamin (vitamin b-12) 99198900700 QIEUSER QIEUSER ATENOLOL 25 MG TABS Take 1 tablet (25 mg) by mouth daily. atenolol 13357845959 QIEUSER QIEUSER ACETAMINOPHEN 500 MG TABS Take 2 tablets (1,000 mg) by mouth 3 times daily as needed for pain acetaminophen 88847803513 QIEUSER QIEUSER Medications Administered No information available. Allergies, Adverse Reactions, Alerts Allergy Name Reaction Description Start Date Severity Statu s Provider CODEINE Moderate Active Sascha Mcbride cki Results Date Name Value Unit Range Flag Description Office Visit: Office Visit f ax MEDS REVIEW Done Documenta tion of current medications (procedure) Replaced Document: (P) MAGNE SIUM, HEPATIC FUNCTION PANEL, CREATINE KINASE, TOTA ... VITEBETAGAMA * mg/L Vitamin E beta james tocopherol VITAMIN E * mg/L alpha tocop herol, serum AMMONIA P * umol/L Ammonia [Mass/volume] in Plasma LACTATE PLSM * mg/dL Lactic a lisette, plasma ALDOLASE * U/L Aldolase [En zymatic activity/volume] in Serum or Plasma B-12 * pg/mL Cobalamin (Vi tamin B12) [Mass/volume] in Serum or Plasma TSH * u[iU]/mL Thyrotropin [Units/volume] in Serum or Plasma FRT4 * FREE T4 FOLATE * ng/mL Folate [Mass/ volume] in Serum or Plasma CRP * mg/dL C reactive pr otein [Mass/volume] in Serum or Plasma BASOPHIL % 0.6 % N Basophils/ 100 leukocytes in Blood by Manual count EOSINOPHIL % 1.6 % N Eosinoph ils/100 leukocytes in Blood by Manual count MONOCYTE % 5.7 % N Monocytes/ 100 leukocytes in Blood by Automated count LYMPHS % 21.9 % N Lymphocytes/ 100 leukocytes in Blood by Automated count PMN % 70.2 % N Neutrophils/1 00 leukocytes in Blood by Automated count BASOPH COUNT 31 CELLS/UL 10*3/mm3 0-200 N Basophils [#/vol ume] in Blood by Manual count EOS COUNT 82 CELLS/UL 10*3/mm3 15-500 N eosinophil count , blood MONOSCT AUTO 291 CELLS/UL 10*3/uL 200-950 N Monocytes [#/vol ume] in Blood by Automated count LYMPH COUNT 1117 CELLS/UL 10*3/mm3 850-3900 N lymphocyte count , blood NEUTRO COUNT 3580 CELLS/UL 10*3/mm3 9531-4209 N neutrophil count , blood MPV 10.8 fL 7.5-12.5 N Platelet erik n volume [Entitic volume] in Blood by Jose Manuel PLATELETS 307 THOUSAND/U L 10*3/mm3 140-400 N Platelets [#/vol ume] in Blood by Automated count RDW 11.8 % 11.0-15.0 N Erythrocyte distribution width [Ratio] by Automated count MCHC 31.6 G/DL 32.0-36.0 L MCHC [Mass/ volume] by Automated count MCH 30.6 pg 27.0-33.0 N MCH [Entiti c mass] by Automated count MCV 96.8 fL 80.0-100.0 N MCV [Entit ic volume] by Automated count HCT 39.9 % 35.0-45.0 N Hematocrit [Volume Fraction] of Blood by Automated count HGB 12.6 g/dL 11.7-15.5 N Hemoglobin [Mass/volume] in Blood RBC 4.12 MILLION/UL 10*6/mm3 3.80-5.10 N Erythrocytes [#/volume] in Blood by Automated count WBC 5.1 THOUSAND/U L 10*3/mm3 3.8-10.8 N Leukocytes [#/volume] in Blood by Automated count ESR * mm/h Erythrocyte sedimentation rate by Westergren method METHYL MALON * nmol/L methylma lonic acid (MMA), serum [id number] * GE use only - for LinkLogic import when terms are not otherwise specified CPK * U/L Creatine maggie se [Enzymatic activity/volume] in Serum or Plasma SGPT (ALT) * U/L Alanine aminotransferase [Enzymatic activity/volume] in Serum or Plasma SGOT (AST) * U/L Aspartate aminotransferase [Enzymatic activity/volume] in Serum or Plasma ALK PHOS * U/L Alkaline gaurang sphatase [Enzymatic activity/volume] in Blood BILI INDIREC * mg/dL bilirubi n, serum, indirect BILI DIRECT * mg/dL Bilirubin .direct [Mass/volume] in Serum or Plasma BILI TOTAL * mg/dL Bilirubin. total [Mass/volume] in Serum or Plasma A/G RATIO * Albumin/Mireya bulin [Mass Ratio] in Serum or Plasma GLOBULIN TOT * g/dL Globulin [Mass/volume] in Serum ALBUMIN * g/dL Albumin [Mass/volume] in Serum or Plasma PROTEIN, TOT * g/dL Protein [Mass/volume] in Serum or Plasma MAGNESIUM * mg/dL Magnesium [Moles/volume] in Serum or Plasma Internal Other: Authorizatio n AUTHBENEFIT Yes Authoriza tion: Assignment of Benefits and Payment Agreement [email or web address] Yes Authorizat ion: Authorization for [facility] to leave messages, voicemail, send text messages, send emails AUTHRELHCARE Yes Authoriz ation: Release/Retrieval of Information to/from Healthcare Facilities, Pharmacy Benefit Payers and Providers ROIAUTHOTHER Yes Authoriz ation: Release of Information - Authorize Others/Insurance - Payment and Healthcare Operations [email or web address] Yes Authoriza tion: Release of Information - Authorize [facility] - Payment and Healthcare Operations AUTHPRIVPRAC Yes Authoriz ation: Notice of privacy practices HIECONSENT Yes Consent To Release information to the Health Information Exchange ([employer]) Plan of Care Type Date Detail Pending order Neuropsychology Evaluation Pending order Neuropsychology Evaluation Pending order Follow up Pending order Cognitive Assess ment with DONELL Pending order Cognitive Assess ment with DONELL Pending order Follow up Pending order Ammonia Pending order C Reactive Prote in (CRP) Qn Pending order CBC with Diff/Pl atelet Pending order ESR (Sedimentati on Rate) Pending order Folate (Folic Ac id) Serum Pending order Hepatic Function Panel (7) Pending order Magnesium Serum Pending order Methylmalonic Ac id Serum (MMA) Pending order T4 Free Direct Pending order TSH Pending order Vitamin B12 Pending order Vitamin E Pending order pTAU-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 Tau) Plasma Pending order Aldolase Pending order CK (Creatine Kin ase) Total Pending order Lactate (Lactic Acid) Procedures Code Procedure Name Date Entry Date [facility]-[id number] Documentation of current medicatio ns ORDERS C Reactive Protein (CRP) Qn ORDERS CBC with Diff/Platelet 10/02 ORDERS ESR (Sedimentation Rate) 10/22/13 ORDERS Folate (Folic Acid) Serum 20 13/10/13 ORDERS Hepatic Function Panel (7) 2 ORDERS Magnesium Serum ORDERS Methylmalonic Acid Serum (MMA) ORDERS T4 Free Direct ORDERS TSH ORDERS Vitamin B12 ORDERS Vitamin E ORDERS CK (Creatine Kinase) Total 2 ORDERS Ammonia ORDERS pTAU-217 (Phosphorylated Tau) Plasma 2024 ORDERS Aldolase ORDERS Lactate (Lactic Acid) 10/02 Vital Signs No information available. Immunizations No information available. Advance Directives No information available.
--- OUTSIDE RECORDS SUMMARY | 2025-02-24 20:54 | XMS_ITS | Encounter Summary ---
Author Organization [facility] Address [address] [place] [address] Care Team Providers Care Pharmacy Coordinator Name Role Phone Alfa Marcelo MD Primary Care Provider Ajay Dailey MD Primary Care Provider [phone] Esperanza Gatica MD Primary Care Provider Esperanza Gatica MD Unavailable [phone] Esperanza Gatica MD Unavailable [phone] Esperanza Gatica MD Unavailable [phone] Esperanza Gatica MD Unavailable [phone] Esperanza Gatica MD Unavailable [phone] Esperanza Gatica MD Unavailable [phone] Jesús Orourke MD Unavailable Alfreda RayC Primary Care Provider + Alfreda RayC Unavailable [phone] Katrin OrellanaC Unavailable [phone] Shanna Vang-C Unavailable [phone] Fransisco Eddy MD Unavailable [phone] Esperanza Gatica MD Unavailable [phone] Esperanza Gatica MD Unavailable [phone] Katrin OrellanaC Unavailable Cristina Hsieh [facility] Unavailable [phone] Cory Alfreda Liu PA-C Unavailable [phone] Cory Alfreda LOERAC Unavailable [phone] [facility] Unavailable [phone] Dakota Tatum MD Unavailable Unava ilable Dakota Tatum MD Unavailable Unava ilable Srinivas Marie DO Unavailable Johanne Gutierrez RN Unavailable [phone] Linda Ambriz PRESSURE STEAMER TENDER Unavailable [phone] Encounter Details Date Type Department Care Team (Late st Contact Info) Description 10/19/[address] [phone] [place] [address] [facility] Summary Social History Tobacco Use Types [...] Assigned at Female 08/17/2018 7:56 AM MOBILE ENGINEER Legal Sex Female 4:24 AM MOBILE ENGINEER Gender Identity Female 08/17/2018 7:56 AM MOBILE ENGINEER Sexual Orientation Straight 08/17/2018 7: 56 AM MOBILE ENGINEER documented as of this encounter Plan of Treatment Upcoming Encounters Date Type Department Care Team (Late st Contact Info) Description 06/28/2025 3:00 PM MOBILE ENGINEER Office Visit [address] [place] [phone] Fransisco Eddy MD [address] [phone] documented as of this encounter Visit Diagnoses [facility]- Primary documented in this encounter Additional Health Concerns Infection Onset Date Last Indicated Resolved Time Rule Out COVID-19 05/08/2021 05/08/2021 05/09/2021 9:08 PM MOBILE ENGINEER documented as of this encounter Care Teams Pharmacy Coordinator Relationship Specialty Start Date End Date Alfa Marcelo MD [facility] [address] [facility] [address] [place] [address] PCP - General 01/22/04 01/28/11 Ajay Dailey MD [facility] [address] [facility] [address] [place] [address] PCP - General Family Practice 01/29/11 10/12/11 Esperanza Gatica MD [facility] [address] [facility] [address] [place] [address] PCP - General Family Practice 10/13/11 12/29/21 [place] [address] [place] [address] PCP - Assigned PCP 12/05/17 08/23/18 Alfreda Ray PA-C [address] [place] [address] PCP - General Family Medicine 12/30/21 [place] [address] [place] [address] Assigned PCP 12/05/17 09/30/19 [place] [address] [place] [address] Assigned PCP 10/01/19 03/02/20 [place] [address] [place] [address] Assigned PCP 03/03/20 05/25/20 [place] [address] [place] [address] Assigned PCP 05/26/20 09/28/20 [place] [address] [place] [address] Assigned PCP 09/29/20 07/31/22 Jesú[place] [address] [address] Assigned Musculoskeletal Provider 10/20/20 04/17/22 Alfreda Ray PA-C [address] [place], [place] [address] Referring Physician Family Medicine 12/31/21 Katrin Orellana PA-C [address] [facility] [address] [place] [address] Physician Customer Engineering Specialist Dermatology 12/31/21 Shanna Vang PA-C [facility] [address] [address] Assigned Cancer Care Provider 01/10/22 Fransisco Eddy MD [address] [place] [address] [address] [place] [address] Assigned Rheumatology Provider 05/09/22 [place] [address] [place] [address] Assigned Pain Medication Provider 06/29/22 09/04/22 [place] [address] [place] [address] Assigned PCP 08/15/22 08/28/22 Katrin Orellana PA-C [address] [place] [address] [address] [place] [address] Assigned Surgical Provider 08/15/22 02/10/24 Cristina Hsieh, [facility] [address] [facility] [place] [address] Pharmacist Pharmacist 09/07/22 Alfreda Ray PA-C [address] [place] [address] Assigned Pain Medication Provider 09/05/22 09/10/23 Alfreda Ray PA-C [address] [place] [address] Assigned PCP 08/29/22 Cristina Hsieh, [facility] [address] [address] Assigned MTM Pharmacist 09/26/22 Dakota Tatum MD [address] [address] Cardiovascular Disease 03/25/23 Dakota Tatum MD Assigned Heart and Vascular Provider 05/01/23 11/09/24 [place] [address] [place] , [address] [address] Assigned Musculoskeletal Provider 04/12/24 Johanne Gutierrez RN TIFFANIE Clinical Product Navigator Primary Care - CC 08/18/24 08/18/24 Linda Ambriz, [facility] Lead Automation Tester 08/18/24 08/23/24 documented as of this encounter
--- OUTSIDE RECORDS SUMMARY | 2025-02-24 20:54 | XMS_ITS | Encounter Summary ---
Author Organization [facility] Address [address] [place] [address] Care Team Providers Care Licensed Social Worker Name Role Phone Alfreda Ray PA-C Primary Care Provider + Alfreda Ray PA-C Unavailable [phone] Katrin Orellana PA-C Unavailable [phone] Shanna Vang PA-C Unavailable [phone] Fransisco Eddy MD Unavailable [phone] Katrin Orellana PA-C Unavailable [phone] Cristina Hsieh [facility] Unavailable [phone] Alfreda Ray PA-C Unavailable [phone] Alfreda Ray PA-C Unavailable [phone] Cristina Hsieh [facility] Unavailable [phone] Dakota Tatum MD Unavailable Unava ilable Dakota Tatum MD Unavailable Unava ilable Srinivas Marie DO Unavailable [phone] Johanne Gutierrez RN Unavailable [phone] [facility] Unavailable [phone] Encounter Details Date Type Department Care Team (Late st Contact Info) Description 02/12/2023 [facility] [address] [phone] Cristina Hsieh, [facility] 1600 [facility] [address] [place] [address] Social History Tobacco Use Types Packs/Day Years [...] Assigned at Female 08/17/2018 7:56 AM BUSINESS OFFICE MANAGER Legal Sex Female 4:24 AM BUSINESS OFFICE MANAGER Gender Identity Female 08/17/2018 7:56 AM BUSINESS OFFICE MANAGER Sexual Orientation Straight 08/17/2018 7: 56 AM BUSINESS OFFICE MANAGER documented as of this encounter Plan of Treatment Upcoming Encounters Date Type Department Care Team (Late st Contact Info) Description 06/28/2025 3:00 PM BUSINESS OFFICE MANAGER Office Visit [facility] [address] [phone] Fransisco Eddy MD [address] [place] [address] documented as of this encounter Visit Diagnoses Not on filedocumented in this encounter Additional Health Concerns Assessment Noted Time PHQ-9 Depression Total Score: 4 09/05/19 22 10:39 AM CDT documented as of this encounter Care Teams Licensed Social Worker Relationship Specialty Start Date End Date Alfreda Ray PA-C [address] [place] [address] PCP - General Family Medicine 12/30/21 Alfreda Ray PA-C [address] [place] [address] Referring Physician Family Medicine 12/31/21 Katrin Orellana PA-C [address] [facility] 98 [place] [address] Physician Allocations Clerk Dermatology 12/31/21 Shanna Vang PA-C [address] [place] [address] Assigned Cancer Care Provider 01/10/22 Fransisco Eddy MD [address] [place] [address] Assigned Rheumatology Provider 05/09/22 Katrin Orellana PA-C [address] [place] [address] Assigned Surgical Provider 08/15/22 02/10/24 Cristina Hsieh [facility] [address] [place] [address] [place] [address] Pharmacist Pharmacist 09/07/22 Alfreda Ray PA-C [address] [place] [address] Assigned Pain Medication Provider 09/05/22 09/10/23 Alfreda Ray PA-C [address] [place] [address] Assigned PCP 08/29/22 Cristina Hsieh [facility] [address] [id number] Assigned MTM Pharmacist 09/26/22 Dakota Tatum MD 1600 [facility] [address] [place] [address] Cardiovascular Disease 03/25/23 Dakota Tatum MD Assigned Heart and Vascular Provider 05/01/23 11/09/24 [place] [address] [address], [facility] [address] [place] [address] Assigned Musculoskeletal Provider 04/12/24 Johanne Gutierrez RN RN Clinical Product Navigator Primary Care - CC 08/18/24 08/18/24 Linda Ambriz, [facility] Lead Poultry Pathologist 08/18/24 08/23/24 documented as of this encounter
--- OUTSIDE RECORDS SUMMARY | 2025-02-24 20:54 | XMS_ITS | Encounter Summary ---
Author Organization [facility] Address [address] [place] [address] Care Team Providers Care Truck Shop Supervisor Name Role Phone Alfa Marcelo MD Primary Care Provider Ajay Dailey MD Primary Care Provider [phone] Esperanza Gatica MD Primary Care Provider Esperanza Gatica MD Unavailable +[phone] Esperanza Gatica MD Unavailable +[phone] Esperanza Gatica MD Unavailable +[phone] Esperanza Gatica MD Unavailable +[phone] Esperanza Gatica MD Unavailable +[phone] Esperanza Gatica MD Unavailable +[phone] Jesús Orourke MD Unavailable Alfreda RayC Primary Care Provider + Alfreda RayC Unavailable +[phone] Katrin OrellanaC Unavailable Shanna Vang-C Unavailable +[phone] Fransisco Eddy MD Unavailable +[phone] Esperanza Gatica MD Unavailable +[phone] Esperanza Gatica MD Unavailable +[phone] Katrin Orellana-C Unavailable Cristina Hsieh [facility] Unavailable +- [phone] Cory Alfreda BORRERO-C Unavailable +[phone] Cory Alfreda BORRERO-C Unavailable +[phone] Cristina Hsieh [facility] Unavailable +[phone] Dakota Tatum MD Unavailable Unava ilable Dakota Tatum MD Unavailable Unava ilable Srinivas Marie DO Unavailable +[phone] Johanne Gutierrez RN Unavailable +[phone] Linda Ambriz GRAIN DISTRIBUTOR Unavailable + [phone] Reason for Visit * Reason Onset Date Comments MyChart Communication 07/05/2007 blood pres sure Encounter Details Date Type Department Care Team (Latest Contact Info) Description 07/05/2007 MyC Medical Advice [address] [address] [place] [address] MyChart Communication (blood pressure) Social History Tobacco Use Types Packs/Day Years Used Date Smoking Tobacco: Former Cigarettes Q uit: 06/21/1973 Alcohol Use Standard Drinks/Week Comments Yes 0 (1 standard drink = 0.6 oz pur e alcohol) rarely Comments No Sex and Gender Information Value Date Recorded Sex Assigned at Female 08/17/2018 7:56 AM HARBOUR MASTER Legal Sex Female 4:24 AM HARBOUR MASTER Gender Identity Female 08/17/2018 7:56 AM HARBOUR MASTER Sexual Orientation Straight 08/17/2018 7: 56 AM HARBOUR MASTER documented as of this encounter Plan of Treatment Upcoming Encounters Date Type Department Care Team (Late st Contact Info) Description 06/28/2025 3:00 PM HARBOUR MASTER Office Visit [facility] Specialty [address] [place] [phone] Fransisco Eddy MD [address] [place] [address] [phone] documented as of this encounter Visit Diagnoses Not on filedocumented in this encounter Additional Health Concerns Infection Onset Date Last Indicated Resolved Time Rule Out COVID-19 05/08/2021 05/08/2021 05/09/2021 9:08 PM HARBOUR MASTER documented as of this encounter Care Teams Truck Shop Supervisor Relationship Specialty Start Date End Date Alfa Marcelo MD [facility] [address] [facility] [address] [place] [address] PCP - General 01/22/04 01/28/11 Ajay Dailey MD [facility] [address] [address] PCP - General Family Practice 01/29/11 10/12/11 Esperanza Gatica MD [place] [id number] [facility] [address] [place] [address] PCP - General Family Practice 10/13/11 12/29/21 [place] [address] [address] GARCIA [address] PCP - Assigned PCP 12/05/17 08/23/18 Alfreda Ray PA-C [address] [place] [address] PCP - General Family Medicine 12/30/21 [place] [address] [address] GARCIA [address] Assigned PCP 12/05/17 09/30/19 [place] [address] [place] [address] Assigned PCP 10/01/19 03/02/20 [place] [address] [place] [address] Assigned PCP 03/03/20 05/25/20 [place] [address] [place] [address] Assigned PCP 05/26/20 09/28/20 [place] [address] [place] [address] Assigned PCP 09/29/20 07/31/22 Jesú[place] [address] [place] [address] Assigned Musculoskeletal Provider 10/20/20 04/17/22 Alfreda Ray PA-C [address] [place] [address] Referring Physician Family Medicine 12/31/21 Katrin Orellana PA-C [address] [place] [address] Physician Field Service Technician Poultry Dermatology 12/31/21 Shanna Vang PA-C [address] [place] [address] Assigned Cancer Care Provider 01/10/22 Fransisco Eddy MD [address] [place] [address] [address] [place] [address] Assigned Rheumatology Provider 05/09/22 [place] [address] [facility] [place] [place] [address] Assigned Pain Medication Provider 06/29/22 09/04/22 [place] [address] [place] [address] Assigned PCP 08/15/22 08/28/22 Katrin Orellana PA-C [address] [place] [address] Assigned Surgical Provider 08/15/22 02/10/24 Cristina Hsieh [facility] [address] [facility] [place] [address] Pharmacist Pharmacist 09/07/22 Alfreda Ray PA-C [address] [place] [address] Assigned Pain Medication Provider 09/05/22 09/10/23 Alfreda Ray PA-C [address] [place] [address] Assigned PCP 08/29/22 Cristina Hsieh [facility] [address] [address] Assigned MTM Pharmacist 09/26/22 Dakota Tatum MD [address] [address] Cardiovascular Disease 03/25/23 Dakota Tatum MD Assigned Heart and Vascular Provider 05/01/23 11/09/24 [place] [address] [address], [address] [address] Assigned Musculoskeletal Provider 04/12/24 Johanne Gutierrez RN RN Clinical Product Navigator Primary Care - CC 08/18/24 08/18/24 Linda Ambriz, [facility] Lead Astronautical Engineer 08/18/24 08/23/24 documented as of this encounter
--- OUTSIDE RECORDS SUMMARY | 2025-02-24 20:54 | XMS_ITS | Encounter Summary ---
Author Organization [facility] Address [address] [place] [address] Care Team Providers Care Hydrant Setter Name Role Phone Alfa Marcelo MD Primary Care Provider Ajay Dailey MD Primary Care Provider [phone] Esperanza Gatica MD Primary Care Provider Esperanza Gatica MD Unavailable +[phone] Esperanza Gatica MD Unavailable +[phone] Esperanza Gatica MD Unavailable +[phone] Esperanza Gatica MD Unavailable +[phone] Esperanza Gatica MD Unavailable +[phone] Esperanza Gatica MD Unavailable +[phone] Jesús Orourke MD Unavailable Alfreda RayC Primary Care Provider + Alfreda RayC Unavailable [phone] Katrin OrellanaC Unavailable Shanna Vang-C Unavailable +[phone] Fransisco Eddy MD Unavailable +[phone] Esperanza Gatica MD Unavailable +[phone] Esperanza Gatica MD Unavailable +[phone] Katrin Orellana-C Unavailable Cristina Hsieh [facility] Unavailable +[phone] Cory Alfreda LOERAC Unavailable [phone] Cory Alfreda LOERAC Unavailable +[phone] Cristina Hsieh [facility] Unavailable [phone] Dakota Tatum MD Unavailable Unava ilable Dakota Tatum MD Unavailable Unava ilable Srinivas Marie DO Unavailable [phone] Johanne Gutierrez RN Unavailable [phone] Linda Ambriz LEATHER HEEL BREASTER Unavailable +[phone] Encounter Details Date Type Department Care Team (Late st Contact Info) Description 11/08/2007 MyC Medical Advice [address] [address] [place] [address] Social History Tobacco Use Types Packs/Day Years Used Date Smoking Tobacco: Former Cigarettes Q uit: 06/21/1973 Alcohol Use Standard Drinks/Week Comments Yes 0 (1 standard drink = 0.6 oz pur e alcohol) rarely Comments No Sex and Gender Information Value Date Recorded Sex Assigned at Female 08/17/2018 7:56 AM UNISAW OPERATOR Legal Sex Female 4:24 AM UNISAW OPERATOR Gender Identity Female 08/17/2018 7:56 AM UNISAW OPERATOR Sexual Orientation Straight 08/17/2018 7: 56 AM UNISAW OPERATOR documented as of this encounter Plan of Treatment Upcoming Encounters Date Type Department Care Team (Late st Contact Info) Description 06/28/2025 3:00 PM UNISAW OPERATOR Office Visit [address] [phone] Fransisco Eddy MD [address] [place] [address] documented as of this encounter Visit Diagnoses Not on filedocumented in this encounter Additional Health Concerns Infection Onset Date Last Indicated Resolved Time Rule Out COVID-19 05/08/2021 05/08/2021 05/09/2021 9:08 PM UNISAW OPERATOR documented as of this encounter Care Teams Hydrant Setter Relationship Specialty Start Date End Date Alfa Marcelo MD [facility] [address] [place] [address] [place] [address] PCP - General 01/22/04 01/28/11 Ajay Dailey MD [facility] [address] [place] [address] [place] [address] PCP - General Family Practice 01/29/11 10/12/11 Esperanza Gatica MD [facility] [address] [place] [address] [place] [address] PCP - General Family Practice 10/13/11 12/29/21 [place] [address] [address] [address] PCP - Assigned PCP 12/05/17 08/23/18 Alfreda Ray PA-C [address] [place] [address] PCP - General Family Medicine 12/30/21 [place] [address] [address] [address] Assigned PCP 12/05/17 09/30/19 [place] [address] [place] [address] Assigned PCP 10/01/19 03/02/20 [place] [address] [place] [address] Assigned PCP 03/03/20 05/25/20 [place] [address] [address] [place] [place]FF[place] [address] Assigned PCP 05/26/20 09/28/20 [place] [address] [place] [address] Assigned PCP 09/29/20 07/31/22 Jesú[place] [address] [facility] [place], [place] 2949[address] Assigned Musculoskeletal Provider 10/20/20 04/17/22 Alfreda Ray PA-C [address] [place] [address] 711782 Referring Physician Family Medicine 12/31/21 Katrin Orellana PA-C [address] [place] [address] [phone] Physician Geological Aide Dermatology 12/31/21 Shanna Vang PA-C [address] [place] [address] [phone] Assigned Cancer Care Provider 01/10/22 Fransisco Eddy MD [address] [place] [address] Assigned Rheumatology Provider 05/09/22 [place] [address] [place] [address] Assigned Pain Medication Provider 06/29/22 09/04/22 [place] [address] [place] [address] Assigned PCP 08/15/22 08/28/22 Katrin Orellana PA-C [address] [place] [address] Assigned Surgical Provider 08/15/22 02/10/24 Cristina Hsieh [facility] [address] [facility] [place] [address] Pharmacist Pharmacist 09/07/22 Alfreda Ray PA-C [address] [place] [address] Assigned Pain Medication Provider 09/05/22 09/10/23 Alfreda Ray PA-C [address] [place] [address] Assigned PCP 08/29/22 Cristina Hsieh [facility] [address] [id number] Assigned MTM Pharmacist 09/26/22 Dakota Tatmu MD 1600 [facility] [address] [place] [address] Cardiovascular Disease 03/25/23 Dakota Tatum MD Assigned Heart and Vascular Provider 05/01/23 11/09/24 [place] [address] CELE GASTELUM, [facility] [address] [place] [address] Assigned Musculoskeletal Provider 04/12/24 Johanne Gutierrez RN RN Clinical Product Navigator Primary Care - CC 08/18/24 08/18/24 Linda Ambriz, [facility] Lead Adult Psychiatrist 08/18/24 08/23/24 documented as of this encounter
--- OUTSIDE RECORDS SUMMARY | 2025-02-24 20:54 | XMS_ITS | Encounter Summary ---
Author Organization [facility] Address [address] [place] [address] Care Team Providers Care Modular Home Crew Member Name Role Phone Alfreda Ray PA-C Primary Care Provider + Alfreda Ray PA-C Unavailable [phone] Katrin Orellana PA-C Unavailable [phone] Shanna Vang PA-C Unavailable +[phone] Fransisco Eddy MD Unavailable +[phone] Katrin Orlelana PA-C Unavailable [phone] Cristina Hsieh [facility] Unavailable +[phone] Alfreda Ray PA-C Unavailable +[phone] Cristina Hsieh [facility] Unavailable [phone] Dakota Tatum MD Unavailable Unava ilable Dakota Tatum MD Unavailable Unava ilable Srinivas Marie DO Unavailable [phone] Johanne Gutierrez RN Unavailable [phone] [facility] Unavailable [phone] Encounter Details Date Type Department Care Team (Late st Contact Info) Description 11/09/2023 [facility] Rheumatology [address] [address] Cristina Hsieh, [facility] [address] [facility] [place] [address] [place] [address] Social History Tobacco Use Types Packs/Day Years [...] Sex Assigned at Female 08/17/2018 7:56 AM TOUR CONDUCTOR Legal Sex Female 4:24 AM TOUR CONDUCTOR Gender Identity Female 08/17/2018 7:56 AM TOUR CONDUCTOR Sexual Orientation Straight 08/17/2018 7: 56 AM TOUR CONDUCTOR documented as of this encounter Plan of Treatment Upcoming Encounters Date Type Department Care Team (Late st Contact Info) Description 06/28/2025 3:00 PM TOUR CONDUCTOR Office Visit [address] [place] [phone] Fransisco Eddy MD [address] [place] [address] [id number] documented as of this encounter Visit Diagnoses Not on filedocumented in this encounter Additional Health Concerns Assessment Noted Time PHQ-9 Depression Total Score: 5 03/09/20 23 10:57 AM CDT documented as of this encounter Care Teams Modular Home Crew Member Relationship Specialty Start Date End Date Alfreda Ray PA-C [address] [place] [address] PCP - General Family Medicine 12/30/21 Alfreda Ray PA-C [address] [place] [address] Referring Physician Family Medicine 12/31/21 Katrin Orellana PA-C [address] [place] [address] 395525 Physician Sash Maker Dermatology 12/31/21 Shanna Vang PA-C [address] [place] [address] 358654 Assigned Cancer Care Provider 01/10/22 Fransisco Eddy MD [address] [place] [address] Assigned Rheumatology Provider 05/09/22 Katrin Orellana PA-C [address] [facility] 98 [place] [address] Assigned Surgical Provider 08/15/22 02/10/24 Cristina Hsieh [facility] [address] [facility] [place] [address] Pharmacist Pharmacist 09/07/22 Alfreda Ray PA-C [address] [place] [address] Assigned PCP 08/29/22 Cristina Hsieh [facility] [address] [facility] [address] [place] [address] Assigned MTM Pharmacist 09/26/22 Dakota Tatum MD [address] [address] Cardiovascular Disease 03/25/23 Dakota Tatum MD Assigned Heart and Vascular Provider 05/01/23 11/09/24 [place] [address] [address]AST[address], [address] [address] Assigned Musculoskeletal Provider 04/12/24 Johanne Gutierrez, RN RN Clinical Product Navigator Primary Care - CC 08/18/24 08/18/24 Linda Ambriz, [facility] Lead Cocoa Butter Filter Operator 08/18/24 08/23/24 documented as of this encounter
--- OUTSIDE RECORDS SUMMARY | 2025-02-24 20:54 | XMS_ITS | Encounter Summary ---
Author Organization [facility] Address [address] [place] [address] Care Team Providers Care Manager Wholesale Name Role Phone Esepranza Gatica MD Primary Care Provider + Esperanza Gatica MD Unavailable +[phone] Esperanza Gatica MD Unavailable +[phone] Esperanza Gatica MD Unavailable +[phone] Esperanza Gatica MD Unavailable +[phone] Esperanza Gatica MD Unavailable +[phone] Esperanza Gatica MD Unavailable +[phone] Jesús Orourke MD Unavailable Alfreda RayC Primary Care Provider + Alfreda Ray PA-C Unavailable +[phone] Katrin Orellana PA-C Unavailable [phone] Shanna VangC Unavailable +[phone] Fransisco Eddy MD Unavailable +[phone] Esperanza Gatica MD Unavailable +[phone] Esperanza Gatica MD Unavailable +[phone] Katrin Orellana PA-C Unavailable +[phone] Cristina Hsieh [facility] Unavailable +[phone] Cory Alfreda Liu PA-C Unavailable +[phone] Cory Alfreda Liu PA-C Unavailable +[phone] Cristina Hsieh [facility] Unavailable +[phone] Dakota Tatum MD Unavailable Unava ilable Dakota Tatum MD Unavailable Unava ilable CynthiaSrinivas Unavailable +[phone] Brenda Johanne Salome RN Unavailable [phone] [place] [facility] Unavailable +[phone] Reason for Visit * Reason Onset Date Comments Refill Request 12/22/2014 Lisinopril-HCTZ 10-12.5mg Encounter Details Date Type Department Care Team (Late st Contact Info) Description 12/22/2014 MyC Medical Advice [address], [address] [place] [address] [place] [address] [place] [address] Refill Request (Lisinopril-HCTZ 10-12.5mg) Social History Tobacco Use Types Packs/Day Years Used Date Smoking Tobacco: Former Cigarettes 1 5 0 06/21/1968 - 06/21/1973 Smokeless Tobacco: Former Alcohol Use Standard Drinks/Week Comments Yes 0 (1 standard drink = 0.6 oz pure alcohol) Very occasionally - 2 per month Comments No Sex and Gender Information Value Date Recorded Sex Assigned at Female 08/17/2018 7:56 AM PUBLIC OPINION SURVEY TAKER Legal Sex Female 4:24 AM PUBLIC OPINION SURVEY TAKER Gender Identity Female 08/17/2018 7:56 AM PUBLIC OPINION SURVEY TAKER Sexual Orientation Straight 08/17/2018 7: 56 AM PUBLIC OPINION SURVEY TAKER documented as of this encounter Miscellaneous Notes * Telephone Encounter - Leigha Rinaldi RN - 12/24/2014 8:16 AM CDT Lisinopril-HCTZ Last Written Prescription Date: 06/18/2014 Last Fill Quantity: 90 , # refills: 1 Last Office Visit with [facility] primary care provider: POTASSIUM Date Value Ref Range Status 07/10/2014 [...] st Contact Info) Description 06/28/2025 3:00 PM PUBLIC OPINION SURVEY TAKER Office Visit [facility] Specialty [address] [phone] Fransisco Eddy MD [address] [place] [address] documented as of this encounter Visit Diagnoses Diagnosis Insomnia, unspecified- Primary HTN (hypertension), benign Essential hypertension, benign documented in this encounter Additional Health Concerns Infection Onset Date Last Indicated Resolved Time Rule Out COVID-19 05/08/2021 05/08/2021 05/09/2021 9:08 PM PUBLIC OPINION SURVEY TAKER documented as of this encounter Care Teams Manager Wholesale Relationship Specialty Start Date End Date Esperanza Gatica MD PCP - General Family Practice 10/13/11 12/29/21 [place] [address] [place] [address] PCP - Assigned PCP 12/05/17 08/23/18 Alfreda Ray PA-C [address] [place] [address] PCP - General Family Medicine 12/30/21 [place] [address] [place] [address] Assigned PCP 12/05/17 09/30/19 [place] [address] [place] [address] Assigned PCP 10/01/19 03/02/20 [place] [address] [place] [address] Assigned PCP 03/03/20 05/25/20 [place] [address] [place] [address] Assigned PCP 05/26/20 09/28/20 [place] [address] [place] [address] Assigned PCP 09/29/20 07/31/22 [place] [address] [place] [address] Assigned Musculoskeletal Provider 10/20/20 04/17/22 Alfreda Ray PA-C [address] [place] [address] Referring Physician Family Medicine 12/31/21 Katrin Orellana PA-C [address] [place] [address] Physician Patent Paralegal Dermatology 12/31/21 Shanna Vang PA-C [address] [place] [address] Assigned Cancer Care Provider 01/10/22 Fransisco Eddy MD [address] [place] [address] Assigned Rheumatology Provider 05/09/22 [place] [address] [place] [address] Assigned Pain Medication Provider 06/29/22 09/04/22 [place] [address] [address] [place] [address] Assigned PCP 08/15/22 08/28/22 Katrin Orellana PA-C [address] [place] [address] Assigned Surgical Provider 08/15/22 02/10/24 Cristina Hsieh [facility] [address] [place] [address] [place] [address] Pharmacist Pharmacist 09/07/22 Alfreda Ray PA-C [address] [place] [address] Assigned Pain Medication Provider 09/05/22 09/10/23 Alfreda Ray PA-C [address] [place] [address] Assigned PCP 08/29/22 Cristina Hsieh, [facility] 1600 [facility] 101 [place] [address] Assigned MTM Pharmacist 09/26/22 Dakota Tatum MD [address] [address] Cardiovascular Disease 03/25/23 Dakota Tatum MD Assigned Heart and Vascular Provider 05/01/23 11/09/24 [place] [address] [facility], [address] [address] Assigned Musculoskeletal Provider 04/12/24 Johanne Gutierrez RN RN Clinical Product Navigator Primary Care - CC 08/18/24 08/18/24 Linda Ambriz, [facility] Lead Small Kick Press Operator 08/18/24 08/23/24 documented as of this encounter
--- OUTSIDE RECORDS SUMMARY | 2025-02-24 20:54 | XMS_ITS | Encounter Summary ---
Author Organization [place] Address [address] [place] [address] Care Team Providers Care College Coach Name Role Phone Alfreda Ray PA-C Primary Care Provider + Alfreda Ray PA-C Unavailable [phone] Katrin Orellana PA-C Unavailable [phone] Shanna Vang PA-C Unavailable [phone] Fransisco Eddy MD Unavailable +[phone] Katrin Orellana PA-C Unavailable [phone] Cristina Hsieh [facility] Unavailable +[phone] Alfreda Ray PA-C Unavailable +[phone] Alfreda Ray PA-C Unavailable +[phone] Cristina Hsieh [facility] Unavailable +[phone] Dakota Tatum MD Unavailable Unava ilable Dakota Tatum MD Unavailable Unava ilable Srinivas Marie DO Unavailable [phone] Johanne Gutierrez RN Unavailable [phone] Linda Ambriz [facility] Unavailable [phone] Reason for Visit * Reason Onset Date Comments Refill Request 04/06/2023 predniSONE (DELT ASONE) 5 MG tablet Encounter Details Date Type Department Care Team (Late st Contact Info) Description 04/06/2023 Refill [facility] [address] [place] [address] Fransisco Eddy MD [address] [place] [address] Refill Request (predniSONE (DELTASONE) 5 MG tablet) [...] Sex Assigned at Female 08/17/2018 7:56 AM BLUEPRINTING MACHINE OPERATOR Legal Sex Female 4:24 AM BLUEPRINTING MACHINE OPERATOR Gender Identity Female 08/17/2018 7:56 AM BLUEPRINTING MACHINE OPERATOR Sexual Orientation Straight 08/17/2018 7: 56 AM BLUEPRINTING MACHINE OPERATOR COVID-19 Exposure Response Date Recorded [...] Eddy and 03/04/23 with Cristina Hsieh [facility] Pending appointment: Apr 15, 2023 11:30 AM Pharmacist Visit with Cristina Hsieh RPH [facility] [place] ([facility] ) [address] [facility] [phone] Jun 17, 2023 1:30 PM (Arrive by 1:15 PM) Return Visit with Fransisco Eddy MD [facility] ([facility] ) [address] [place] [phone] Per YUSRA Evans's last note, pt is to be taking 5 mg daily until seen by her, Prescription not on Protocol, and routed to provider to review different dosing. 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) documented in this encounter Additional Health Concerns Assessment Noted Time PHQ-9 Depression Total Score: 5 03/09/20 23 10:57 AM CDT documented as of this encounter Care Teams College Coach Relationship Specialty Start Date End Date Alfreda Ray PA-C [address] [place] [address] [phone] PCP - General Family Medicine 12/30/21 Alfreda Ray PA-C [address] [place] [address] Referring Physician Family Medicine 12/31/21 Katrin Orellana PA-C [address] [place] [address] Physician Manager Operations Dermatology 12/31/21 Shanna Vang PA-C [address] [place] [address] Assigned Cancer Care Provider 01/10/22 Fransisco Eddy MD [address] [place] [address] Assigned Rheumatology Provider 05/09/22 Katrin Orellana PA-C [address] [place] [address] Assigned Surgical Provider 08/15/22 02/10/24 Cristina Hsieh [facility] [address] [place] [address] [place] [address] Pharmacist Pharmacist 09/07/22 Alfreda Ray PA-C [address] [place] [address]299 Assigned Pain Medication Provider 09/05/22 09/10/23 Alfreda Ray PA-C [address] [place] [address]57 Assigned PCP 08/29/22 Cristina Hsieh [facility] [address] [address] Assigned MTM Pharmacist 09/26/22 Dakota Tatum MD [address] [facility] 101 [place] [address] Cardiovascular Disease 03/25/23 Dakota Tatum MD Assigned Heart and Vascular Provider 05/01/23 11/09/24 [place] [address] [address], [facility] [address] [place] [address] Assigned Musculoskeletal Provider 04/12/24 Johanne Gutierrez RN TIFFANIE Clinical Product Navigator Primary Care - CC 08/18/24 08/18/24 Linda Ambriz, [facility] Lead Kindergartners Helper 08/18/24 08/23/24 documented as of this encounter
--- OUTSIDE RECORDS SUMMARY | 2025-02-24 20:54 | XMS_ITS | Encounter Summary ---
Author Organization [place] Address [address] [place] [address] Care Team Providers Care Rv Repairer Name Role Phone Esperanza Gatica MD Primary Care Provider + Esperanza Gatica MD Unavailable +[phone] Esperanza Gatica MD Unavailable +[phone] Esperanza Gatica MD Unavailable +[phone] Esperanza Gatica MD Unavailable +[phone] Esperanza Gatica MD Unavailable +[phone] Esperanza Gatica MD Unavailable +[phone] Jesús Orourke MD Unavailable Alfreda RayC Primary Care Provider + Alfreda Ray PA-C Unavailable +[phone] Katrin Orellana PA-C Unavailable [phone] Shanna VangC Unavailable +[phone] Fransisco Eddy MD Unavailable [phone] Esperanza Gatica MD Unavailable +[phone] Esperanza Gatica MD Unavailable +[phone] Katrin Orellana PA-C Unavailable Cirstina Hsieh [facility] Unavailable +[phone] Cory Alfreda Liu PA-C Unavailable +[phone] Cory Alfreda Liu PA-C Unavailable +[phone] Cristina Hsieh [facility] Unavailable +[phone] Dakota Tatum MD Unavailable Unava ilable Dakota Tatum MD Unavailable Unava ilable CynthiaSrinivas Unavailable +[phone] Brenda Ojhanne Salome RN Unavailable [phone] Linda Ambriz [facility] Unavailable +[phone] Reason for Visit * Reason Onset Date Comments Refill Request 02/28/2015 Tramadol 50mg Encounter Details Date Type Department Care Team (Late st Contact Info) Description 02/28/2015 MyC Refill [address], [address] [place] [address] [place] [address] [place] [address] Refill Request (Tramadol 50mg) Social History Tobacco [...] Assigned at Female 08/17/2018 7:56 AM FARM ADVISER Legal Sex Female 4:24 AM FARM ADVISER Gender Identity Female 08/17/2018 7:56 AM FARM ADVISER Sexual Orientation Straight 08/17/2018 7: 56 AM FARM ADVISER documented as of this encounter Miscellaneous Notes * Telephone Encounter - Leigha Rinaldi RN - 02/28/2015 10:08 AM CDT Tramadol 50mg Last Written Prescription Date: 12/06/2014 Last Fill Quantity: 90, # refills: 0 Last Office Visit with [facility] primary care provider: 12/06/2014 Future Office visit: Routing refill request to provider for review/approval because: Drug not on the [facility] refill protocol or controlled substance. Leigha Rinaldi RN * Telephone Encounter - Leigha Rinaldi RN - 02/28/2015 10:07 AM CDTMessage from MyChart: Original authorizing provider: MD Alexandria Brannon would like a refill of the following medications: traMADol (ULTRAM) 50 MG tablet [Esperanza Gatica MD] Preferred pharmacy: [id number] Comment: documented in this encounter Plan of Treatment Upcoming Encounters Date Type Department Care Team (Late st Contact Info) Description 06/28/2025 3:00 PM FARM ADVISER Office Visit [facility] [address] [phone] Fransisco Eddy MD [address] [place] [address] documented as of this encounter Visit Diagnoses Diagnosis HTN (hypertension), benign Essential hypertension, benign documented in this encounter Additional Health Concerns Infection Onset Date Last Indicated Resolved Time Rule Out COVID-19 05/08/2021 05/08/2021 05/09/2021 9:08 PM FARM ADVISER documented as of this encounter Care Teams Rv Repairer Relationship Specialty Start Date End Date Esperanza Gatica MD PCP - General Family Practice 10/13/11 12/29/21 [place] [address] [place] [address] PCP - Assigned PCP 12/05/17 08/23/18 Alfreda Ray PA-C [address] [place] [address] PCP - General Family Medicine 12/30/21 [place] [address] [place] [address] Assigned PCP 12/05/17 09/30/19 [place] [address] [place] [address] Assigned PCP 10/01/19 03/02/20 [place] [address] [place] [address] Assigned PCP 03/03/20 05/25/20 [place] [address] [place] [address] Assigned PCP 05/26/20 09/28/20 [place] [address] [place] [address] Assigned PCP 09/29/20 07/31/22 [place] [address] [place] [place] [address] Assigned Musculoskeletal Provider 10/20/20 04/17/22 Alfreda Ray PA-C [address] [place] [address] Referring Physician Family Medicine 12/31/21 Katrin Orellana PA-C [address] [address] Physician Cleaner Touch Up Worker Dermatology 12/31/21 Shanna Vang PA-C [address] [place] [address] Assigned Cancer Care Provider 01/10/22 Fransisco Eddy MD [address] [place] [address] [phone] Assigned Rheumatology Provider 05/09/22 [place] [address] [place] [address] Assigned Pain Medication Provider 06/29/22 09/04/22 [place] [address] [place] [address] Assigned PCP 08/15/22 08/28/22 Katrin Orellana PA-C [address] [place] [address] Assigned Surgical Provider 08/15/22 02/10/24 Cristina Hsieh [facility] [address] [facility] [place] [address] Pharmacist Pharmacist 09/07/22 Alfreda Ray PA-C [address] [place] [address] Assigned Pain Medication Provider 09/05/22 09/10/23 Alfreda Ray PA-C 4151 [place], [place] 192952 Assigned PCP 08/29/22 Cristina Hsieh, [facility] [address] [address] Assigned MTM Pharmacist 09/26/22 Dakota Tatum MD [address] [address] Cardiovascular Disease 03/25/23 Dakota Tatum MD Assigned Heart and Vascular Provider 05/01/23 11/09/24 [place] [address] CE[address], [address] [address] Assigned Musculoskeletal Provider 04/12/24 Johanne Gutierrez, RN RN Clinical Product Navigator Primary Care - CC 08/18/24 08/18/24 Linda Ambriz, [facility] Lead Research And Development Specialist 08/18/24 08/23/24 documented as of this encounter
--- OUTSIDE RECORDS SUMMARY | 2025-02-24 20:54 | XMS_ITS | Encounter Summary ---
Author Organization [place] Address [address] [place] [address] Care Team Providers Care Head Pastry Chef Name Role Phone Esperanza Gatica MD Primary Care Provider + Esperanza Gatica MD Unavailable +[phone] Esperanza Gatica MD Unavailable +[phone] Esperanza Gatica MD Unavailable +[phone] Esperanza Gatica MD Unavailable +[phone] Esperanza Gatica MD Unavailable +[phone] Esperanza Gatica MD Unavailable +[phone] Jesús Orourke MD Unavailable Alfreda RayC Primary Care Provider + Alfreda Ray PA-C Unavailable +- [phone] Katrin Orellana PA-C Unavailable [phone] Shanna VangC Unavailable +[phone] Fransisco Eddy MD Unavailable +[phone] Esperanza Gatica MD Unavailable +[phone] Esperanza Gatica MD Unavailable +[phone] Katrin Orellana PA-C Unavailable Cristina Hsieh [facility] Unavailable +[phone] Cory Alfreda Liu PA-C Unavailable +[phone] Ho Raymustapha Liu PA-C Unavailable +[phone] Cristina Hsieh [facility] Unavailable +[phone] Dakota Tatum MD Unavailable Unava ilable Dakota Tatum MD Unavailable Unava ilable CynthiaSrinivas Unavailable +[phone] Brenda Johanne Salome RN Unavailable [phone] Linda Ambriz [facility] Unavailable +[phone] Reason for Visit * Reason Onset Date Comments Refill Request 01/15/2015 Atenolol 25mg Encounter Details Date Type Department Care Team (Late st Contact Info) Description 01/15/2015 MyC Refill [address], [address] [place] [address] [place] [address] [place], [place] [phone] Refill Request (Atenolol 25mg) Social History Tobacco Use Types Packs/Day Years Used Date Smoking Tobacco: Former Cigarettes 1 5 0 06/21/1968 - 06/21/1973 Smokeless Tobacco: Former Alcohol Use Standard Drinks/Week Comments Yes 0 (1 standard drink = 0.6 oz pure alcohol) Very occasionally - 2 per month Comments No Sex and Gender Information Value Date Recorded Sex Assigned at Female 08/17/2018 7:56 AM PRESSER AUTOMATIC Legal Sex Female 4:24 AM PRESSER AUTOMATIC Gender Identity Female 08/17/2018 7:56 AM PRESSER AUTOMATIC Sexual Orientation Straight 08/17/2018 7: 56 AM PRESSER AUTOMATIC documented as of this encounter Miscellaneous Notes * Telephone Encounter - Leigha Rinaldi RN - 01/15/2015 10:29 AM CDT Atenolol 25mg Last Written Prescription Date: 07/10/2014 Last Fill Quantity: 90, # refills: 1 Last Office Visit with [facility] primary care provider: 12/06/2014 Future Office Visit: BP Readings from Last 3 Encounters: 12/06/14 126/64 08/07/14 130/88 07/10/14 116/60 Prescription approved per [facility] Refill Protocol. Leigha Rinaldi RN * Telephone Encounter - Leigha Rinaldi RN - 01/15/2015 10:28 AM [facility] Original authorizing provider: MD Alexandria Brannon would like a refill of the following medications: atenolol (TENORMIN) 25 MG tablet [Esperanza Gatica MD] Preferred pharmacy: [facility] #[id number] Comment: documented in this encounter Plan of Treatment Upcoming Encounters Date Type Department Care Team (Late st Contact Info) Description 06/28/2025 3:00 PM PRESSER AUTOMATIC Office Visit [facility] [address] [address] Fransisco Eddy MD [address] [place] [address] documented as of this encounter Visit Diagnoses Diagnosis HTN (hypertension), benign Essential hypertension, benign documented in this encounter Additional Health Concerns Infection Onset Date Last Indicated Resolved Time Rule Out COVID-19 05/08/2021 05/08/2021 05/09/2021 9:08 PM PRESSER AUTOMATIC documented as of this encounter Care Teams Head Pastry Chef Relationship Specialty Start Date End Date Esperanza Gatica MD PCP - General Family Practice 10/13/11 12/29/21 [place] [address] [place] [address] PCP - Assigned PCP 12/05/17 08/23/18 Alfreda Ray PA-C [address] [place] [address] PCP - General Family Medicine 12/30/21 [place] [address] [place] [address] Assigned PCP 12/05/17 09/30/19 [place] [address] [place] [address] Assigned PCP 10/01/19 03/02/20 [place] [address] [place] [address] Assigned PCP 03/03/20 05/25/20 [place] [address] [place] [address] Assigned PCP 05/26/20 09/28/20 [place] [address] [place] [address] Assigned PCP 09/29/20 07/31/22 [place] [address] [place] [address] Assigned Musculoskeletal Provider 10/20/20 04/17/22 Alfreda Ray PA-C [address] [place] [address] Referring Physician Family Medicine 12/31/21 Katrin Orellana PA-C [address] [place] [address] Physician Software Developer Dermatology 12/31/21 Shanna Vang PA-C [address] [place] [address] 675864 Assigned Cancer Care Provider 01/10/22 Fransisco Eddy MD [address] [place] [address] 872655 Assigned Rheumatology Provider 05/09/22 [place] [address] [place] [address] Assigned Pain Medication Provider 06/29/22 09/04/22 [place] [address] [place] [address] Assigned PCP 08/15/22 08/28/22 Katrin Orellana PA-C [address] [place] [address] Assigned Surgical Provider 08/15/22 02/10/24 Cristina Hsieh [facility] [address] [place] [address] [place] [address] Pharmacist Pharmacist 09/07/22 Alfreda Ray PA-C [address] [place] [address] Assigned Pain Medication Provider 09/05/22 09/10/23 Alfreda Ray PA-C [address] [place] [address] Assigned PCP 08/29/22 Cristina Hsieh, [facility] [address] [address] Assigned MTM Pharmacist 09/26/22 Dakota Tatum MD [address] [address] Cardiovascular Disease 03/25/23 Dakota Tatum MD Assigned Heart and Vascular Provider 05/01/23 11/09/24 [place] [address] [place] , [address] [address] Assigned Musculoskeletal Provider 04/12/24 Johanne Gutierrez, RN TIFFANIE Clinical Product Navigator Primary Care - CC 08/18/24 08/18/24 Linda Ambriz, [facility] Lead Leather Tanner 08/18/24 08/23/24 documented as of this encounter
--- OUTSIDE RECORDS SUMMARY | 2025-02-24 20:54 | XMS_ITS | Encounter Summary ---
Author Organization [place] Address [address] [place] [address] Care Team Providers Care Client Experience Consultant Name Role Phone Alfa Marcelo MD Primary Care Provider Ajay Dailey MD Primary Care Provider [phone] Esperanza Gatica MD Primary Care Provider Esperanza Gatica MD Unavailable +[phone] Esperanza Gatica MD Unavailable +[phone] Esperanza Gatica MD Unavailable +[phone] Esperanza Gatica MD Unavailable +[phone] Esperanza Gatica MD Unavailable +[phone] Esperanza Gatica MD Unavailable +[phone] Jesús Orourke MD Unavailable Alfreda RayC Primary Care Provider + Alfreda RayC Unavailable +[phone] Katrin OrellanaC Unavailable [phone] Shanna Vang-C Unavailable +[phone] Fransisco Eddy MD Unavailable +[phone] Esperanza Gatica MD Unavailable +[phone] Esperanza Gatica MD Unavailable +[phone] Katrin Orellana-C Unavailable Cristina Hsieh [facility] Unavailable +[phone] Cory Alfreda LOERAC Unavailable [phone] Cory Alfreda LOERAC Unavailable +[phone] rCistina Hsieh [facility] Unavailable [phone] Dakota Tatum MD Unavailable Unava ilable Dakota Tatum MD Unavailable Unava ilable Srinivas Marie DO Unavailable [phone] Johanne Gutierrez RN Unavailable [phone] Linda Ambriz CHARGE MASTER SPECIALIST Unavailable [phone] Encounter Details Date Type Department Care Team (Late st Contact Info) Description 01/04/2008 MyC Medical Advice [address] [address] [place] [address] Social History Tobacco Use Types Packs/Day Years Used Date Smoking Tobacco: Former Cigarettes Q uit: 06/21/1973 Alcohol Use Standard Drinks/Week Comments Yes 0 (1 standard drink = 0.6 oz pur e alcohol) rarely Comments No Sex and Gender Information Value Date Recorded Sex Assigned at Female 08/17/2018 7:56 AM FILLING ROOM OPERATOR Legal Sex Female 4:24 AM FILLING ROOM OPERATOR Gender Identity Female 08/17/2018 7:56 AM FILLING ROOM OPERATOR Sexual Orientation Straight 08/17/2018 7: 56 AM FILLING ROOM OPERATOR documented as of this encounter Plan of Treatment Upcoming Encounters Date Type Department Care Team (Late st Contact Info) Description 06/28/2025 3:00 PM FILLING ROOM OPERATOR Office Visit [address] [phone] Fransisco Eddy MD [address] [place] [address] documented as of this encounter Visit Diagnoses Not on filedocumented in this encounter Additional Health Concerns Infection Onset Date Last Indicated Resolved Time Rule Out COVID-19 05/08/2021 05/08/2021 05/09/2021 9:08 PM FILLING ROOM OPERATOR documented as of this encounter Care Teams Client Experience Consultant Relationship Specialty Start Date End Date Alfa Marcelo MD [facility] [address] [place] [address] PCP - General 01/22/04 01/28/11 Ajay Dailey MD [facility] [address] [place] [address] PCP - General Family Practice 01/29/11 10/12/11 Esperanza Gatica MD [facility] [address] [place] [address] PCP - General Family Practice 10/13/11 12/29/21 [place] [address] [place] [place] [address] PCP - Assigned PCP 12/05/17 08/23/18 Alfreda Ray PA-C [address] [place] [address] PCP - General Family Medicine 12/30/21 [place] [address] [address] [place] [address] Assigned PCP 12/05/17 09/30/19 [place] [address] [place] [address] Assigned PCP 10/01/19 03/02/20 [place] [address] [place] [address] Assigned PCP 03/03/20 05/25/20 [place] [address] [address] [place] [address] Assigned PCP 05/26/20 09/28/20 [place] [address] [place] [address] Assigned PCP 09/29/20 07/31/22 Jesú[place] [address] [place] [place] [facility] [place], [place] 772977 Assigned Musculoskeletal Provider 10/20/20 04/17/22 Alfreda Ray PA-C [address] [place] [address] 702962 Referring Physician Family Medicine 12/31/21 Katrin Orellana PA-C [address] [place] [address] [phone] Physician Facilities And Grounds Director Dermatology 12/31/21 Shanna Vang PA-C [address] [place] [address] [phone] Assigned Cancer Care Provider 01/10/22 Fransisco Eddy MD [address] [place] [address] Assigned Rheumatology Provider 05/09/22 [place] [address] [place] [address] Assigned Pain Medication Provider 06/29/22 09/04/22 [place] [address] [place] [address] Assigned PCP 08/15/22 08/28/22 Katrin Orellana PA-C [address] [place] [address] Assigned Surgical Provider 08/15/22 02/10/24 Cristina Hsieh [facility] [address] [facility] [place] [address] Pharmacist Pharmacist 09/07/22 Alfreda Ray PA-C [address] [place] [address] Assigned Pain Medication Provider 09/05/22 09/10/23 Alfreda Ray PA-C [address] [place] [address] Assigned PCP 08/29/22 Cristina Hsieh [facility] [address] [id number] Assigned MTM Pharmacist 09/26/22 Dakota Tatum MD [address] [facility] [address] [place] [address] Cardiovascular Disease 03/25/23 Dakota Tatum MD Assigned Heart and Vascular Provider 05/01/23 11/09/24 [place] [address] [address], [facility] [address] [place] [address] Assigned Musculoskeletal Provider 04/12/24 Johanne Gutierrez RN RN Clinical Product Navigator Primary Care - CC 08/18/24 08/18/24 Linda Ambriz, [facility] Lead Filenet P8 Developer 08/18/24 08/23/24 documented as of this encounter
--- OUTSIDE RECORDS SUMMARY | 2025-02-24 20:54 | XMS_ITS | Encounter Summary ---
Author Organization [place] Address [address] [place] [address] Care Team Providers Care Terrazzo Mechanic Name Role Phone Alfa Marcelo MD Primary Care Provider Ajay Dailey MD Primary Care Provider [phone] Esperanza Gatica MD Primary Care Provider Esperanza Gatica MD Unavailable +[phone] Esperanza Gatica MD Unavailable +[phone] Esperanza Gatica MD Unavailable +[phone] Esperanza Gatica MD Unavailable +[phone] Epseranza Gatica MD Unavailable +[phone] Esperanza Gatica MD Unavailable +[phone] Jesús Orourke MD Unavailable Alfreda RayC Primary Care Provider + Alfreda RayC Unavailable +[phone] Katrin OrellanaC Unavailable Shanna Vang-C Unavailable +[phone] Fransisco Eddy MD Unavailable +[phone] Esperanza Gatica MD Unavailable +[phone] Esperanza Gatica MD Unavailable +[phone] Katrin OrellanaC Unavailable Cristina Hsieh [facility] Unavailable +[phone] Cory Alfreda Liu PA-C Unavailable +[phone] Cory Alfreda LOERAC Unavailable +[phone] Cristina Hsieh [facility] Unavailable +[phone] Dakota Tatum MD Unavailable Unava ilable Dakota Tatum MD Unavailable Unava ilable Srinivas Marie DO Unavailable +[phone] Johanne Gutierrez RN Unavailable +[phone] Linda Ambriz MANAGER LIFE Unavailable +[phone] Encounter Details Date Type Department Care Team (Late st Contact Info) Description 09/23/[address] [address] [place] [address] [facility] Summary Social History Tobacco Use Types [...] Sex Assigned at Female 08/17/2018 7:56 AM CAROUSEL OPERATOR Legal Sex Female 4:24 AM CAROUSEL OPERATOR Gender Identity Female 08/17/2018 7:56 AM CAROUSEL OPERATOR Sexual Orientation Straight 08/17/2018 7: 56 AM CAROUSEL OPERATOR documented as of this encounter Plan of Treatment Upcoming Encounters Date Type Department Care Team (Late st Contact Info) Description 06/28/2025 3:00 PM CAROUSEL OPERATOR Office Visit [address] [place] [phone] Fransisco Eddy MD [address] [place] [address] 857635 documented as of this encounter Visit Diagnoses Diagnosis Tioga Christian Nfro-Rndh-Bruiruvox Summary- Primary documented in this encounter Additional Health Concerns Infection Onset Date Last Indicated Resolved Time Rule Out COVID-19 05/08/2021 05/08/2021 05/09/2021 9:08 PM CAROUSEL OPERATOR documented as of this encounter Care Teams Terrazzo Mechanic Relationship Specialty Start Date End Date Alfa Marcelo MD [facility] [address] [place] [address] PCP - General 01/22/04 01/28/11 Ajay Dailey MD [facility] [address] [place] [address] PCP - General Family Practice 01/29/11 10/12/11 Esperanza Gatica MD [facility] [address] [place] [address] PCP - General Family Practice 10/13/11 12/29/21 [place] [address] [place] [address] PCP - Assigned PCP 12/05/17 08/23/18 Alfreda Ray PA-C [address] [place] [address] PCP - General Family Medicine 12/30/21 [place] [address] [place] [address] Assigned PCP 12/05/17 09/30/19 [place] [address] [place] [address] Assigned PCP 10/01/19 03/02/20 [place] [address] [place] [address] Assigned PCP 03/03/20 05/25/20 [place] [address] [place] [address] Assigned PCP 05/26/20 09/28/20 [place] [address] [place] [address] Assigned PCP 09/29/20 07/31/22 Jesú[place] [address] [place] [address] Assigned Musculoskeletal Provider 10/20/20 04/17/22 Alfreda Ray PA-C [address] [place] [address] 953942 Referring Physician Family Medicine 12/31/21 Katrin Orellana PA-C [address] [address] Physician Prison Warden Dermatology 12/31/21 Shanna Vang PA-C [address] [place] [address] Assigned Cancer Care Provider 01/10/22 Fransisco Eddy MD [address] [place] [address] [address] [place] [address] Assigned Rheumatology Provider 05/09/22 [place] [address] [place] [address] Assigned Pain Medication Provider 06/29/22 09/04/22 [place] [address] [address] [place] [address] Assigned PCP 08/15/22 08/28/22 Katrin Orellana PA-C [address] [place] [address] Assigned Surgical Provider 08/15/22 02/10/24 Cristina Hsieh [facility] [address] [place] [address] [place] [address] Pharmacist Pharmacist 09/07/22 Alfreda Ray PA-C [address] [place] [address] 801002 Assigned Pain Medication Provider 09/05/22 09/10/23 Alfreda Ray PA-C [address] [place] [address] 088092 Assigned PCP 08/29/22 Cristina Hsieh, [facility] [address] [address] Assigned MTM Pharmacist 09/26/22 Dakota Tatum MD [address] [address] Cardiovascular Disease 03/25/23 Dakota Tatum MD Assigned Heart and Vascular Provider 05/01/23 11/09/24 [place] [address] [address] , [address] [address] Assigned Musculoskeletal Provider 04/12/24 Johanne Gutierrez RN TIFFANIE Clinical Product Navigator Primary Care - CC 08/18/24 08/18/24 Linda Ambriz, [facility] Lead Loan Teller 08/18/24 08/23/24 documented as of this encounter
--- OUTSIDE RECORDS SUMMARY | 2025-02-24 20:54 | XMS_ITS | Encounter Summary ---
Author Organization [place] Address [address] [place] [address] Care Team Providers Care Cna Hha Name Role Phone Esperanza Gatica MD Primary Care Provider + Esperanza Gatica MD Unavailable +[phone] Esperanza Gatica MD Unavailable +[phone] Esperanza Gatica MD Unavailable +[phone] Esperanza Gatica MD Unavailable +[phone] Esperanza Gatica MD Unavailable +[phone] Esperanza Gatica MD Unavailable +[phone] Jesús Orourke MD Unavailable Alfreda RayC Primary Care Provider + Alfreda Ray PA-C Unavailable +- [phone] Katrin Orellana PA-C Unavailable [phone] Shanna VangC Unavailable +[phone] Fransisco Eddy MD Unavailable +[phone] Esperanza Gatica MD Unavailable +[phone] Esperanza Gatica MD Unavailable +[phone] Katrin Orellana PA-C Unavailable Cristina Hsieh [facility] Unavailable +[phone] Cory Alfreda Liu PA-C Unavailable +[phone] Cory Alfreda Liu PA-C Unavailable +[phone] Cristina Hsieh [facility] Unavailable +[phone] Dakota Tatum MD Unavailable Unava ilable Dakota Tatum MD Unavailable Unava ilable CynthiaSrinivas Unavailable +[phone] Brenda Johanne Salome MORENO Unavailable [phone] [place] [facility] Unavailable +[phone] Reason for Visit * Reason Onset Date Comments Refill Request 06/13/2015 Celebrex Lisino pril Encounter Details Date Type Department Care Team (Late st Contact Info) Description 06/13/2015 MyC Refill [address], [address] [place] [address] [place] [address] [place] [address] Refill Request (Celebrex, Lisinopril) Social [...] Sex Assigned at Female 08/17/2018 7:56 AM INTERNAL CORROSION SPECIALIST Legal Sex Female 4:24 AM INTERNAL CORROSION SPECIALIST Gender Identity Female 08/17/2018 7:56 AM INTERNAL CORROSION SPECIALIST Sexual Orientation Straight 08/17/2018 7: 56 AM INTERNAL CORROSION SPECIALIST documented as of this encounter Miscellaneous Notes * Telephone Encounter - Leigha Rinaldi RN - 06/13/2015 9:16 AM CST Lisinopril, Celebrex Last Written Prescription Date: 03/17/2015 Last Fill Quantity: 90, # refills: 0 Last Office Visit with [facility] primary care provider: 04/08/2015 POTASSIUM Date Value Ref Range Status 07/10/2014 4.3 3.4 - 5.3 mmol/L Final CREATININE Date Value Ref Range Status 07/10/2014 0.89 0.52 - 1.04 mg/dL Final BP Readings from Last 3 Encounters: 04/08/15 112/60 12/06/14 126/64 08/07/14 130/88 Prescription approved per [facility] Refill Protocol. Leigha Rinaldi RN RNAL CORROSION SPECIALIST * Telephone Encounter - Leigha Rinaldi RN - 06/13/2015 9:16 AM CSTMessage from [facility]: Original authorizing provider: MD Alexandria Brannon would like a refill of the following medications: celecoxib (CELEBREX) 200 MG capsule [Esperanza Gatica MD] lisinopril-hydrochlorothiazide (PRINZIDE,ZESTORETIC) 10-12.5 MG per tablet [Esperanza Gatica MD] Preferred pharmacy: [id number] - [address] Comment: RNAL CORROSION SPECIALIST documented in this encounter Plan of Treatment Upcoming Encounters Date Type Department Care Team (Late st Contact Info) Description 06/28/2025 3:00 PM INTERNAL CORROSION SPECIALIST Office Visit [facility] [address] [phone] Fransisco Eddy MD [address] [place] [address] documented as of this encounter Visit Diagnoses Diagnosis Osteoarthritis Osteoarthrosis, unspecified whether generalized or localized, unspecified site HTN (hypertension), benign Essential hypertension, benign documented in this encounter Additional Health Concerns Infection Onset Date Last Indicated Resolved Time Rule Out COVID-19 05/08/2021 05/08/2021 05/09/2021 9:08 PM INTERNAL CORROSION SPECIALIST documented as of this encounter Care Teams Cna Hha Relationship Specialty Start Date End Date Esperanza Gatica MD PCP - General Family Practice 10/13/11 12/29/21 [place] [address] [place] [address] PCP - Assigned PCP 12/05/17 08/23/18 Alfreda Ray PA-C [address] [place] [address], [place] [address] PCP - General Family Medicine 12/30/21 [place] [address] [place] [address] Assigned PCP 12/05/17 09/30/19 [place] [address] [place] [address] Assigned PCP 10/01/19 03/02/20 [place] [address] [place] [address] Assigned PCP 03/03/20 05/25/20 [place] [address] [place] [address] Assigned PCP 05/26/20 09/28/20 [place] [address] [place] [address] Assigned PCP 09/29/20 07/31/22 Jesú[place] [address] [address] Assigned Musculoskeletal Provider 10/20/20 04/17/22 Alfreda Ray PA-C [address] [place] [address] 077222 Referring Physician Family Medicine 12/31/21 Katrin Orellana PA-C [address] [place] [address] 710115 Physician Gis Analyst Developer Dermatology 12/31/21 Shanna Vang PA-C [address] [place] [address] 823734 Assigned Cancer Care Provider 01/10/22 Fransisco Eddy MD [address] [place] [address] 238215 Assigned Rheumatology Provider 05/09/22 [place] [address] [address] [address] Assigned Pain Medication Provider 06/29/22 09/04/22 [place] [address] [address] [address] Assigned PCP 08/15/22 08/28/22 Katrin Orellana PA-C [address] [place] [address] 285545 Assigned Surgical Provider 08/15/22 02/10/24 Cristina Hsieh, [facility] [address] [facility] [place] [address] Pharmacist Pharmacist 09/07/22 Alfreda Ray PA-C [address] [place] [address] 664092 Assigned Pain Medication Provider 09/05/22 09/10/23 Alfreda Ray PA-C [address] [place] [address] 797372 Assigned PCP 08/29/22 Cristina Hsieh, [facility] [address] [address] Assigned MTM Pharmacist 09/26/22 Dakota Tatum MD [address] [address] Cardiovascular Disease 03/25/23 Dakota Tatum MD Assigned Heart and Vascular Provider 05/01/23 11/09/24 [place] [address] [address] , [address] [address] Assigned Musculoskeletal Provider 04/12/24 Johanne Gutierrez, RN RN Clinical Product Navigator Primary Care - CC 08/18/24 08/18/24 Linda Ambriz, [facility] Lead Occupational Therapy Director 08/18/24 08/23/24 documented as of this encounter
--- OUTSIDE RECORDS SUMMARY | 2025-02-24 20:54 | XMS_ITS | Encounter Summary ---
Author Organization [place] Address [address] [place] [address]. [place] [address] Care Team Providers Care Lighting Designer Name Role Phone Alfreda Ray PA-C Primary Care Provider + Alfreda Ray PA-C Unavailable [phone] Katrin Orellana PA-C Unavailable [phone] Shanna Vang PA-C Unavailable +[phone] Fransisco Eddy MD Unavailable +[phone] Katrin Orellana PA-C Unavailable [phone] Cristina Hsieh [facility] Unavailable +[phone] RayAlfreda olvera PA-C Unavailable + [phone] Alfreda Ray PA-C Unavailable +[phone] Cristina Hsieh [facility] Unavailable [phone] Dakota Tatum MD Unavailable Unava ilable Dakota Tatum MD Unavailable Unava ilable Srinivas Marie DO Unavailable [phone] Johanne Gutierrez RN Unavailable [phone] Linda Ambriz [facility] Unavailable [phone] Encounter Details Date Type Department Care Team (Late st Contact Info) Description 12/01/2022 [facility] [address] [place] [address], [place] [phone] Tete[place]ia everett Social History Tobacco Use Types [...] Sex Assigned at Female 08/17/2018 7:56 AM WRINGER OPERATOR Legal Sex Female 4:24 AM WRINGER OPERATOR Gender Identity Female 08/17/2018 7:56 AM WRINGER OPERATOR Sexual Orientation Straight 08/17/2018 7: 56 AM WRINGER OPERATOR COVID-19 Exposure Response Date Recorded In the last 10 days, have yo u been in contact with someone who was confirmed or suspected to have Coronavirus/COVID-19? No / Unsure 11/30/2022 2:01 PM CDT documented as of this encounter Plan of Treatment Upcoming Encounters Date Type Department Care Team (Late st Contact Info) Description 06/28/2025 3:00 PM WRINGER OPERATOR Office Visit [facility] [address] [phone] Fransisco Eddy MD [address] [place] [address] documented as of this encounter Visit Diagnoses Not on filedocumented in this encounter Additional Health Concerns Assessment Noted Time PHQ-9 Depression Total Score: 4 09/05/19 22 10:39 AM CDT documented as of this encounter Care Teams Lighting Designer Relationship Specialty Start Date End Date Alfreda Ray PA-C [address] [place] [address] PCP - General Family Medicine 12/30/21 Alfreda Ray PA-C [address] [place] [address] 447072 Referring Physician Family Medicine 12/31/21 Katrin Orellana PA-C [address] [place] [address] 108695 Physician Web Mobile Designer Dermatology 12/31/21 Shanna Vang PA-C [address] [place] [address] 752314 Assigned Cancer Care Provider 01/10/22 Fransisco Eddy MD [address] [place] [address] [phone] Assigned Rheumatology Provider 05/09/22 Katrin Orellana PA-C [address] [place] [address] 959235 Assigned Surgical Provider 08/15/22 02/10/24 Cristina Hsieh [facility] [address] [facility] [address] [place] [address] Pharmacist Pharmacist 09/07/22 Alfreda Ray PA-C [address] [place] [address] 511512 Assigned Pain Medication Provider 09/05/22 09/10/23 Alfreda Ray PA-C [address] [place] [address] 013282 Assigned PCP 08/29/22 Cristina Hsieh [facility] [address] [id number] Assigned MTM Pharmacist 09/26/22 Dakota Tatum MD [address] [facility] [address] [place] [address] Cardiovascular Disease 03/25/23 Dakota Tatum MD Assigned Heart and Vascular Provider 05/01/23 11/09/24 [place] [address] [address], [facility] [address] [place] [address] Assigned Musculoskeletal Provider 04/12/24 Johanne Gutierrez RN TIFFANIE Clinical Product Navigator Primary Care - CC 08/18/24 08/18/24 Linda Ambriz, [facility] Lead Health Information Specialist 08/18/24 08/23/24 documented as of this encounter
[2025-02-24 20:55] VITALS: BP 199/89; PULSE 61; RESP 20; TEMP 36.9; O2SAT 92
--- OUTSIDE RECORDS SUMMARY | 2025-02-24 20:55 | XMS_ITS | Encounter Summary ---
Author Organization [place] Address [address] [place] [address] Care Team Providers Care Landscape Nurseryman Name Role Phone Alfa Marcelo MD Primary Care Provider Ajay Dailey MD Primary Care Provider [phone] Esperanza Gatica MD Primary Care Provider Esperanza Gatica MD Unavailable +[phone] Esperanza Gatica MD Unavailable +[phone] Esperanza Gatica MD Unavailable +[phone] Esperanza Gatica MD Unavailable +[phone] Esperanza Gatica MD Unavailable +[phone] Esperanza Gatica MD Unavailable +[phone] Jesús Orourke MD Unavailable Alfreda RayC Primary Care Provider + Alfreda RayC Unavailable +[phone] Katrin OrellanaC Unavailable Shanna Vang-C Unavailable +[phone] Fransisco Eddy MD Unavailable +[phone] Esperanza Gatica MD Unavailable +[phone] Espernaza Gatica MD Unavailable +[phone] Katrin OrellanaC Unavailable [phone] Cristina Hsieh [facility] Unavailable +[phone] Cory Alfreda Liu PA-C Unavailable +[phone] Cory Alfreda LOERAC Unavailable +[phone] Cristina Hsieh [facility] Unavailable +[phone] Dakota Tatum MD Unavailable Unava ilable Dakota Tatum MD Unavailable Unava ilable Srinivas Marie DO Unavailable [phone] Johanne Gutierrez RN Unavailable [phone] Linda Ambriz DRILL OPERATOR AUTOMATIC Unavailable + [phone] Reason for Visit * Reason Onset Date Comments MyChart Communication 10/02/2009 wanting to see a female paper feeder Encounter Details Date Type Department Care Team (Late st Contact Info) Description 10/02/2009 MyC Medical Advice [address] [address] Alfa Marcelo MD [facility] [address] [place] [address] MyChart Communication (wanting to see a fe... Social History Tobacco Use Types Packs/Day Years Used Date Smoking Tobacco: Former Cigarettes Q uit: 06/21/1973 Alcohol Use Standard Drinks/Week Comments Yes 0 (1 standard drink = 0.6 oz pur e alcohol) rarely Comments No Sex and Gender Information Value Date Recorded Sex Assigned at Female 08/17/2018 7:56 AM HEAVY LINE TECHNICIAN Legal Sex Female 4:24 AM HEAVY LINE TECHNICIAN Gender Identity Female 08/17/2018 7:56 AM HEAVY LINE TECHNICIAN Sexual Orientation Straight 08/17/2018 7: 56 AM HEAVY LINE TECHNICIAN documented as of this encounter Plan of Treatment Upcoming Encounters Date Type Department Care Team (Late st Contact Info) Description 06/28/2025 3:00 PM HEAVY LINE TECHNICIAN Office Visit [facility] [place] [address] [facility] [address] [place] [address] Fransisco Eddy MD [address] [place] [address] documented as of this encounter Visit Diagnoses Not on filedocumented in this encounter Additional Health Concerns Infection Onset Date Last Indicated Resolved Time Rule Out COVID-19 05/08/2021 05/08/2021 05/09/2021 9:08 PM HEAVY LINE TECHNICIAN documented as of this encounter Care Teams Landscape Nurseryman Relationship Specialty Start Date End Date Alfa Marcelo MD [facility] [address] [place] [address] PCP - General 01/22/04 01/28/11 Ajay Dailey MD [facility] [address] [place] [address] PCP - General Family Practice 01/29/11 10/12/11 Esperanza Gatica MD [facility] [address] [place] [address] PCP - General Family Practice 10/13/11 12/29/21 [place] [address] [place] [address] PCP - Assigned PCP 12/05/17 08/23/18 Alfreda Ray PA-C [address] [place] [address] PCP - General Family Medicine 12/30/21 [place] [address] [place] [address] Assigned PCP 12/05/17 09/30/19 [place] [address] [place] [address] Assigned PCP 10/01/19 03/02/20 [place] [address] [place] [address] Assigned PCP 03/03/20 05/25/20 [place] [address] [place] [address] Assigned PCP 05/26/20 09/28/20 [place] [address] [place] [address] Assigned PCP 09/29/20 07/31/22 Jesú[place] [address] [place] [address] Assigned Musculoskeletal Provider 10/20/20 04/17/22 Alfreda Ray PA-C [address] [place] [address] 433452 Referring Physician Family Medicine 12/31/21 Katrin Orellana PA-C [address] [address] Physician Outpatient Admitting Clerk Dermatology 12/31/21 Shanna Vang PA-C [address] [place] [address] Assigned Cancer Care Provider 01/10/22 Fransisco Eddy MD [address] [place] [address] [address] [place] [address] Assigned Rheumatology Provider 05/09/22 [place] [address] [place] [address] Assigned Pain Medication Provider 06/29/22 09/04/22 [place] [address] [place] [address] Assigned PCP 08/15/22 08/28/22 Katrin Orellana PA-C [address] [place] [address] Assigned Surgical Provider 08/15/22 02/10/24 Cristina Hsieh [facility] [address] [facility] [place] [address] Pharmacist Pharmacist 09/07/22 Alfreda Ray PA-C [address] [place] [address] [phone] Assigned Pain Medication Provider 09/05/22 09/10/23 Alfreda Ray PA-C [address] [place] [address] Assigned PCP 08/29/22 Cristina Hsieh, [facility] [address] [address] Assigned MTM Pharmacist 09/26/22 Dakota Tatum MD [address] [address] Cardiovascular Disease 03/25/23 Dakota Tatum MD Assigned Heart and Vascular Provider 05/01/23 11/09/24 [place] [address] [address] , [address] [address] Assigned Musculoskeletal Provider 04/12/24 Johanne Gutierrez RN TIFFANIE Clinical Product Navigator Primary Care - CC 08/18/24 08/18/24 Linda Ambriz, [facility] Lead Technology Consultant 08/18/24 08/23/24 documented as of this encounter
--- OUTSIDE RECORDS SUMMARY | 2025-02-24 20:55 | XMS_ITS | Encounter Summary ---
Author Organization [facility] Address [address] [place] [address] Care Team Providers Care Crossing Flagman Name Role Phone Esperanza Gatica MD Primary Care Provider + Esperanza Gatica MD Unavailable +[phone] Esperanza Gatica MD Unavailable +[phone] Esperanza Gatica MD Unavailable +354 Esperanza Gatica MD Unavailable +344 Esperanza Gatica MD Unavailable +[phone] Esperanza Gatica MD Unavailable +[phone] Jesús Orourke MD Unavailable Alfreda RayC Primary Care Provider + Alfreda Ray PA-C Unavailable +- [phone] Katrin Orellana PA-C Unavailable +[phone] Shanna VangC Unavailable +[phone] Fransisco Eddy MD Unavailable +[phone] Esperanza Gatica MD Unavailable +[phone] Esperanza Gatica MD Unavailable +[phone] Katrin Orellana PA-C Unavailable +[phone] Cristina Hsieh [facility] Unavailable Alfreda Ray PA-C Unavailable +[phone] Cory Alfreda Liu PA-C Unavailable +[phone] Cristina Hsieh [facility] Unavailable Dakota Tatum MD Unavailable Unava ilable Dakota Tatum MD Unavailable Unava ilable Srinivas Marie Unavailable +[phone] Johanne Gutierrez RN Unavailable +[phone] PbMelodyMyra Gallito [facility] Unavailable +[phone] Reason for Visit * Reason Onset Date Comments Medication Refill atenolol (TENO RMIN) 25 MG tablet Refill Request 08/14/2018 lisinopril-hydro chlorothiazide (PRINZIDE/ZESTORETIC) 10-12.5 MG per tablet Refill Request 08/14/2018 traZODone (DESYR EL) 50 MG tablet Encounter Details Date Type Department Care Team (Late st Contact Info) Description 08/14/[address], [address] [place] [address] [place] [address] [place] [address] Medication Refill (atenolol (TENORMIN) 25 [...] Assigned at Female 08/17/2018 7:56 AM HOME CARE NURSE Legal Sex Female 4:24 AM HOME CARE NURSE Gender Identity Female 08/17/2018 7:56 AM HOME CARE NURSE Sexual Orientation Straight 08/17/2018 7: 56 AM HOME CARE NURSE documented as of this encounter Miscellaneous Notes * Telephone Encounter - Leigha Rinaldi RN - 08/16/2018 12:39 PM CST Prescription approved per [facility] Refill Protocol. Leigha Rinaldi RN CARE NURSE * Telephone Encounter - Yohan Whitaker - 08/15/2018 11:35 AM CST Requested Prescriptions Pending Prescriptions Disp Refills ??? atenolol (TENORMIN) 25 MG tablet [Pharmacy Med Name: ATENOLOL 25MG TABS] Last Written Prescription Date: 04/04/18 Last Fill Quantity: 90 TABLET, # refills: 1 Last office visit: 04/04/2018 with prescribing provider: TERA Future Office Visit: Next 5 appointments (look out 90 days) Aug 19, 2018 11:00 AM HOME CARE NURSE PHYSICAL with Esperanza Gatica MD [facility] [address] [place] [address], [address] [address] 90 tablet 1 Sig: TAKE [...] active on med list ??? lisinopril-hydrochlorothiazide (PRINZIDE/ZESTORETIC) -.5 MG tablet [Pharmacy Med Name: LISINOPRIL-HYDROCHLORO 10-12.5 TABS] Last Written Prescription Date: 08/26/17 Last Fill Quantity: 90 TABLET, # refills: 2 Last office visit: 04/04/2018 with prescribing provider: TERA Future Office Visit: Next 5 appointments (look out 90 days) Aug 19, 2018 11:00 AM HOME CARE NURSE PHYSICAL with Esperanza Gatica MD [facility] ([facility] [address] [place] [address], [address] [facility] [address] 90 tablet 2 Sig: TAKE ONE [...] 90 days) Aug 19, 2018 11:00 AM HOME CARE NURSE PHYSICAL with Esperanza Gatica MD [facility] ([facility] [address] [facility], [address] [facility] [address] 90 tablet 3 Sig: TAKE ONE [...] No positive test in past 12 months CARE NURSE documented in this encounter Plan of Treatment Upcoming Encounters Date Type Department Care Team (Late st Contact Info) Description 06/28/2025 3:00 PM HOME CARE NURSE Office Visit [facility] [address] [place] [address] Fransisco Eddy MD [address] [place] [address] 787615 documented as of this encounter Visit Diagnoses Diagnosis HTN, goal below 140/90 Unspecified essential hypertension HTN (hypertension), benign Essential hypertension, benign Insomnia, unspecified type documented in this encounter Additional Health Concerns Infection Onset Date Last Indicated Resolved Time Rule Out COVID-19 05/08/2021 05/08/2021 05/09/2021 9:08 PM HOME CARE NURSE Assessment Noted Time PHQ-9 Depression Total Score: 1 04/05/20 18 7:16 AM CDT documented as of this encounter Care Teams Crossing Flagman Relationship Specialty Start Date End Date Esperanza Gatica MD PCP - General Family Practice 10/13/11 12/29/21 [place] [address] [place] [address] PCP - Assigned PCP 12/05/17 08/23/18 Alfreda Ray PA-C [address] [place] [address], [place] [address] PCP - General Family Medicine 12/30/21 [place] [address] [place] [address] Assigned PCP 12/05/17 09/30/19 [place] [address] [place] [address] Assigned PCP 10/01/19 03/02/20 [place] [address] [place] [address] Assigned PCP 03/03/20 05/25/20 [place] [address] [place] [address] Assigned PCP 05/26/20 09/28/20 [place] [address] [place] [address] Assigned PCP 09/29/20 07/31/22 Jesú[place] [address] [place], [place] [address] Assigned Musculoskeletal Provider 10/20/20 04/17/22 Alfreda Ray PA-C [address] [place] [address] 779482 Referring Physician Family Medicine 12/31/21 Katrin Orellana PA-C [address] 030575 Physician Second Watch Sergeant Dermatology 12/31/21 Shanna Vang PA-C [address] [place] [address] 846914 Assigned Cancer Care Provider 01/10/22 Fransisco Eddy MD [address] [place] [address] 486155 Assigned Rheumatology Provider 05/09/22 [place] [address] [place] [address] Assigned Pain Medication Provider 06/29/22 09/04/22 [place] [address] [place] [address] Assigned PCP 08/15/22 08/28/22 Katrin Orellana PA-C [address] [place] [address] 394515 Assigned Surgical Provider 08/15/22 02/10/24 Cristina Hsieh [facility] [address] [facility] [place] [address] Pharmacist Pharmacist 09/07/22 Alfreda Ray PA-C [address] [place] [address] Assigned Pain Medication Provider 09/05/22 09/10/23 Alfreda Ray PA-C [address] [place] [address] Assigned PCP 08/29/22 Cristnia Hsieh, [facility] [address] [facility] [address] [place] [address] Assigned MTM Pharmacist 09/26/22 Dakota Tatum MD [address] [address] Cardiovascular Disease 03/25/23 Dakota Tatum MD Assigned Heart and Vascular Provider 05/01/23 11/09/24 [place] [address] [address] , [address] [address] Assigned Musculoskeletal Provider 04/12/24 Johanne Gutierrez RN RN Clinical Product Navigator Primary Care - CC 08/18/24 08/18/24 Linda Ambriz, [facility] Lead Senior Gamemaster 08/18/24 08/23/24 documented as of this encounter
--- OUTSIDE RECORDS SUMMARY | 2025-02-24 20:55 | XMS_ITS | Encounter Summary ---
Author Organization [facility] Address [address] [place] [address] Care Team Providers Care Virtual Classroom Manager Name Role Phone Esperanza Gatica MD Primary Care Provider + Esperanza Gatica MD Unavailable +[phone] Esperanza Gatica MD Unavailable +[phone] Esperanza Gatica MD Unavailable +[phone] Esperanza Gatica MD Unavailable +213 Esperanza Gatica MD Unavailable +[phone] Esperanza Gatica MD Unavailable +[phone] Jesús Orourke MD Unavailable Alfreda RayC Primary Care Provider + Alfreda Ray PA-C Unavailable +- [phone] Katrin Orellana PA-C Unavailable +[phone] Shanna VangC Unavailable +[phone] Fransisco Eddy MD Unavailable +[phone] Esperanza Gatica MD Unavailable +[phone] Esperanza Gatica MD Unavailable +[phone] Katrin Orellana PA-C Unavailable Cristina Hsieh [facility] Unavailable +[phone] Cory Alfreda Liu PA-C Unavailable +[phone] Ho Raymustapha Liu PA-C Unavailable +[phone] Cristina Hsieh [facility] Unavailable [phone] Dakota Tatum MD Unavailable Unava ilable Dakota Tatum MD Unavailable Unava ilable Cynthia Srinivas Unavailable +[phone] Brenda Johanne Salome M[place] Unavailable +[phone] Mariana Ambrizie Gallito INSPECTOR ASSEMBLY Unavailable [phone] Encounter Details Date Type Department Care Team (Late st Contact Info) Description 08/17/2017 MyC Medical Advice [address], [address] [place] [address] Cata Olivo MA Social History [...] Assigned at Female 08/17/2018 7:56 AM PATIENT PORTAL REPRESENTATIVE Legal Sex Female 4:24 AM PATIENT PORTAL REPRESENTATIVE Gender Identity Female 08/17/2018 7:56 AM PATIENT PORTAL REPRESENTATIVE Sexual Orientation Straight 08/17/2018 7: 56 AM PATIENT PORTAL REPRESENTATIVE documented as of this encounter Plan of Treatment Upcoming Encounters Date Type Department Care Team (Late st Contact Info) Description 06/28/2025 3:00 PM PATIENT PORTAL REPRESENTATIVE Office Visit [address] [place] [address] Fransisco Eddy MD [address] [place] [address] documented as of this encounter Visit Diagnoses Not on filedocumented in this encounter Additional Health Concerns Infection Onset Date Last Indicated Resolved Time Rule Out COVID-19 05/08/2021 05/08/2021 05/09/2021 9:08 PM PATIENT PORTAL REPRESENTATIVE Assessment Noted Time PHQ-9 Depression Total Score: 0 08/18/19 17 7:09 AM PATIENT PORTAL REPRESENTATIVE documented as of this encounter Care Teams Virtual Classroom Manager Relationship Specialty Start Date End Date Esperanza Gatica MD PCP - General Family Practice 10/13/11 12/29/21 [place] [address] [place] [address] PCP - Assigned PCP 12/05/17 08/23/18 Alfreda Ray PA-C [address] [place] [address] PCP - General Family Medicine 12/30/21 [place] [address] [place] [address] Assigned PCP 12/05/17 09/30/19 [place] [address] [place] [address] Assigned PCP 10/01/19 03/02/20 [place] [address] [place] [address] Assigned PCP 03/03/20 05/25/20 [place] [address] [place] [address] Assigned PCP 05/26/20 09/28/20 [place] [address] [place] [address] Assigned PCP 09/29/20 07/31/22 Jesú[place] [address] [place] [address] Assigned Musculoskeletal Provider 10/20/20 04/17/22 Alfreda Ray PA-C [address] [place] [address] 323222 Referring Physician Family Medicine 12/31/21 Katrin Orellana PA-C [address] [place] [address] 064955 Physician Last Repairer Dermatology 12/31/21 Shanna Vang PARobinson [facility][note 3][address] 398044 Assigned Cancer Care Provider 01/10/22 Fransisco Eddy MD [address] [place] [address] 790605 Assigned Rheumatology Provider 05/09/22 [place] [address] [place] [address] Assigned Pain Medication Provider 06/29/22 09/04/22 [place] [address] [place] [address] Assigned PCP 08/15/22 08/28/22 Katrin Orellana PA-C [address] [place] [address] Assigned Surgical Provider 08/15/22 02/10/24 Cristina Hsieh [facility] [address]305 [facility] [place] [address] Pharmacist Pharmacist 09/07/22 Alfreda Ray PA-C [address] [place] [address] 245212 Assigned Pain Medication Provider 09/05/22 09/10/23 Alfreda Ray PA-C [address] [place] [address] 087132 Assigned PCP 08/29/22 Cristina Hsieh, [facility] [address] [address] Assigned MTM Pharmacist 09/26/22 Dakota Tatum MD [address] [address] Cardiovascular Disease 03/25/23 Dakota Tatum MD Assigned Heart and Vascular Provider 05/01/23 11/09/24 [place] [address] [place], [address] [address] Assigned Musculoskeletal Provider 04/12/24 Johanne Gutierrez RN RN Clinical Product Navigator Primary Care - CC 08/18/24 08/18/24 Linda Ambriz, [facility] Lead Blasting Cap Assembler 08/18/24 08/23/24 documented as of this encounter
--- OUTSIDE RECORDS SUMMARY | 2025-02-24 20:55 | XMS_ITS | Encounter Summary ---
Author Organization [facility] Address [address] [place] [address] Care Team Providers Care Missile And Missile Checkout Technician Name Role Phone Esperanza Gatica MD Primary Care Provider + Esperanza Gatica MD Unavailable + Jesús Orourke MD Unavailable Alfreda Ray-C Primary Care Provider + Alfreda RayC Unavailable +[phone] Katrin Orellana PA-C Unavailable +[phone] Shanna Vang PA-C Unavailable +[phone] Fransisco Eddy MD Unavailable +[phone] Esperanza Gatica MD Unavailable + Esperanza Gatica MD Unavailable +13 Katrin OrellanaC Unavailable +[phone] Cristina Hsieh [facility] Unavailable +[phone] Alfreda Ray PA-C Unavailable +[phone] Alfreda Ray PA-C Unavailable +[phone] Cristina Hsieh [facility] Unavailable +[phone] Dakota Tatum MD Unavailable Unava ilDakota Padgett MD Unavailable Unava brittneySrinivas Yun DO Unavailable +[phone] Johanne Gutierrez RN Unavailable Linda Ambriz [facility] Unavailable +[phone] Reason for Visit * Reason Onset Date Comments Refill Request 12/23/2021 Encounter Details Date Type Department Care Team (Late st Contact Info) Description 12/23/2021 MyC Refill [facility] [address] [place] [address] [place] [address] [place] [address] Refill Request Social History Tobacco [...] Assigned at Female 08/17/2018 7:56 AM CHIEF INVESTIGATOR Legal Sex Female 4:24 AM CHIEF INVESTIGATOR Gender Identity Female 08/17/2018 7:56 AM CHIEF INVESTIGATOR Sexual Orientation Straight 08/17/2018 7: 56 AM CHIEF INVESTIGATOR COVID-19 Exposure Response Date Recorded In the [...] PM) Provider Visit with Alfreda Ray PA-C [facility] [address] [place] [phone] Mar 05, 2022 2:00 PM (Arrive by 1:40 PM) Annual Wellness Visit with Esperanza Gatica MD [facility] ([facility] ) [address] [facility] [phone] Yesi Britton RN documented in this encounter Plan of Treatment Upcoming Encounters Date Type Department Care Team (Late st Contact Info) Description 06/28/2025 3:00 PM CHIEF INVESTIGATOR Office Visit [facility] [address] [phone] Fransisco Eddy MD [address] [place] [address] documented as of this encounter Visit Diagnoses Diagnosis Primary osteoarthritis involving multiple joints documented in this encounter Additional Health Concerns Assessment Noted Time PHQ-9 Depression Total Score: 4 09/05/19 22 10:39 AM CDT documented as of this encounter Care Teams Missile And Missile Checkout Technician Relationship Specialty Start Date End Date Esperanza Gatica MD PCP - General Family Practice 10/13/11 12/29/21 Alfreda Ray PA-C [address] [place] [address] PCP - General Family Medicine 12/30/21 [place] [address] [facility] [place] [address] Assigned PCP 09/29/20 07/31/22 Jesú[place] [address] [address] Assigned Musculoskeletal Provider 10/20/20 04/17/22 Alfreda Ray PA-C [address] [place] [address] 914862 Referring Physician Family Medicine 12/31/21 Katrin Orellana PA-C [address] [place] [address] 714705 Physician Asp Net Mvc Developer Dermatology 12/31/21 Shanna Vang PA-C [address] [place] [address] 247824 Assigned Cancer Care Provider 01/10/22 Fransisco Eddy MD [address] [place] [address] 077555 Assigned Rheumatology Provider 05/09/22 [place] [address] [place] [address] Assigned Pain Medication Provider 06/29/22 09/04/22 [place] [address] [place] [address] Assigned PCP 08/15/22 08/28/22 Katrin Orellana PA-C [address] [place] [address] 975105 Assigned Surgical Provider 08/15/22 02/10/24 Cristina Hsieh [facility] [address] [facility] [place] [address] Pharmacist Pharmacist 09/07/22 Alfreda Ray PA-C [address] [place] [address] 359712 Assigned Pain Medication Provider 09/05/22 09/10/23 Alfreda Ray PA-C [address] [place] [address] 114802 Assigned PCP 08/29/22 Cristina Hsieh [facility] [address] [address] Assigned MTM Pharmacist 09/26/22 Dakota Tatum MD [address] [address] Cardiovascular Disease 03/25/23 Dakota Tatum MD Assigned Heart and Vascular Provider 05/01/23 11/09/24 [place] [address] [place] , [address] [address] Assigned Musculoskeletal Provider 04/12/24 Johanne Gutierrez, RN RN Clinical Product Navigator Primary Care - CC 08/18/24 08/18/24 Linda Ambrzi, [facility] Lead Him Assistant 08/18/24 08/23/24 documented as of this encounter
--- OUTSIDE RECORDS SUMMARY | 2025-02-24 20:55 | XMS_ITS | Encounter Summary ---
Author Organization [facility] Address [address] [place] [address] Care Team Providers Care Cabin Cleaning Supervisor Name Role Phone Esperanza Gatica MD Primary Care Provider + Esperanza Gatica MD Unavailable + Esperanza Gatica MD Unavailable + Esperanza Gatica MD Unavailable + Esperanza Gatica MD Unavailable + Esperanza Gatica MD Unavailable + Jesús Orourke MD Unavailable Alfreda Ray-C Primary Care Provider + Alfreda Ray-C Unavailable + [phone] Katrin OrellanaC Unavailable +[phone] Shanna Vang-C Unavailable +[phone] Fransisco Eddy MD Unavailable +[phone] Esperanza Gatica MD Unavailable + Esperanza Gatica MD Unavailable + Katrin OrellanaC Unavailable +[phone] Cristina Hsieh [facility] Unavailable +60 Ho Raymustapha Liu PA-C Unavailable +[phone] Cory Alfreda Liu PA-C Unavailable +[phone] Cristina Hsieh [facility] Unavailable +[phone] Dakota Tatum MD Unavailable Unava ilable Dakota Tatum MD Unavailable Unava ilable Srinivas Marie Unavailable +[phone] Johanne Gutierrez RN Unavailable [phone] Linda Ambriz [facility] Unavailable +[phone] Reason for Visit * Reason Onset Date Comments Medication Question 09/19/2018 Gabapentin d osing Encounter Details Date Type Department Care Team (Late st Contact Info) Description 09/19/2018 MyC Medical Advice [address], [address] [place] [address] [place] [address] [place] [address] Medication Question (Gabapentin dosing) Social [...] Assigned at Female 08/17/2018 7:56 AM INDUSTRIAL ORGANIZATIONAL PSYCHOLOGIST Legal Sex Female 4:24 AM INDUSTRIAL ORGANIZATIONAL PSYCHOLOGIST Gender Identity Female 08/17/2018 7:56 AM INDUSTRIAL ORGANIZATIONAL PSYCHOLOGIST Sexual Orientation Straight 08/17/2018 7: 56 AM INDUSTRIAL ORGANIZATIONAL PSYCHOLOGIST documented as of this encounter Miscellaneous Notes [...] st Contact Info) Description 06/28/2025 3:00 PM INDUSTRIAL ORGANIZATIONAL PSYCHOLOGIST Office Visit [facility] [address] [place] [address] Fransisco Eddy MD [address] [place] [address] 870805 documented as of this encounter Visit Diagnoses Not on filedocumented in this encounter Additional Health Concerns Infection Onset Date Last Indicated Resolved Time Rule Out COVID-19 05/08/2021 05/08/2021 05/09/2021 9:08 PM INDUSTRIAL ORGANIZATIONAL PSYCHOLOGIST Assessment Noted Time PHQ-9 Depression Total Score: 1 08/20/19 19 1:44 PM INDUSTRIAL ORGANIZATIONAL PSYCHOLOGIST documented as of this encounter Care Teams Cabin Cleaning Supervisor Relationship Specialty Start Date End Date Esperanza Gatica MD PCP - General Family Practice 10/13/11 12/29/21 Alfreda Ray PA-C [address] [place] [address] PCP - General Family Medicine 12/30/21 [place] [address] [place] [address] Assigned PCP 12/05/17 09/30/19 [place] [address] [place] [address] Assigned PCP 10/01/19 03/02/20 [place] [address] [place] [address] Assigned PCP 03/03/20 05/25/20 [place] [address] [place] [address] Assigned PCP 05/26/20 09/28/20 [place] [address] [place] [address] Assigned PCP 09/29/20 07/31/22 [place] [address] [place] [address] [address] Assigned Musculoskeletal Provider 10/20/20 04/17/22 Alfreda Ray PA-C [address] [place] [address] 757442 Referring Physician Family Medicine 12/31/21 Katrin Orellana PA-C [address] [place] [address] 875155 Physician Logistics Service Representative Dermatology 12/31/21 Shanna Vang PA-C [address] [place] [address] 901674 Assigned Cancer Care Provider 01/10/22 Fransisco Eddy MD [address] [place] [address] Assigned Rheumatology Provider 05/09/22 [place] [address] [place] [address] Assigned Pain Medication Provider 06/29/22 09/04/22 [place] [address] [address] [facility] [address] Assigned PCP 08/15/22 08/28/22 Katrin Orellana PA-C [address] [place] [address] Assigned Surgical Provider 08/15/22 02/10/24 Cristina Hsieh [facility] [address] [facility] [place] [address] Pharmacist Pharmacist 09/07/22 Alfreda Ray PA-C [address] [place] [address] 894682 Assigned Pain Medication Provider 09/05/22 09/10/23 Alfreda Ray PA-C [address] [place] [address] Assigned PCP 08/29/22 Cristina Hsieh [facility] [address] [address] Assigned MTM Pharmacist 09/26/22 Dakota Tatum MD [address] [facility] [address] [place] [address] Cardiovascular Disease 03/25/23 Dakota Tatum MD Assigned Heart and Vascular Provider 05/01/23 11/09/24 [place] [address] [place] [place], [facility] [address] [place] [address] Assigned Musculoskeletal Provider 04/12/24 Johanne Gutierrez RN RN Clinical Product Navigator Primary Care - CC 08/18/24 08/18/24 Linda Ambriz, [facility] Lead Bean Picker Machine Operator 08/18/24 08/23/24 documented as of this encounter
--- OUTSIDE RECORDS SUMMARY | 2025-02-24 20:55 | XMS_ITS | Encounter Summary ---
Author Organization [facility] Address [address] [place] [address] Care Team Providers Care Business Solutions Director Name Role Phone Esperanza Gatica MD Primary Care Provider + Esperanza Gatica MD Unavailable +[phone] Esperanza Gatica MD Unavailable +[phone] Esperanza Gatica MD Unavailable +[phone] Esperanza Gatica MD Unavailable +135 Esperanza Gatica MD Unavailable +[phone] Esperanza Gatica MD Unavailable +[phone] Jesús Orourke MD Unavailable Alfreda RayC Primary Care Provider + Alfreda Ray PA-C Unavailable +- [phone] Katrin Orellana PA-C Unavailable +[phone] Shanna VangC Unavailable +[phone] Fransisco Eddy MD Unavailable +[phone] Esperanza Gatica MD Unavailable +[phone] Esperanza Gatica MD Unavailable +[phone] Katrin Orellana PA-C Unavailable Cristina Hsieh [facility] Unavailable +[phone] Cory Alfreda Liu PA-C Unavailable +[phone] Ho Raymustapha Liu PA-C Unavailable +[phone] Cristina Hsieh [facility] Unavailable +[phone] Dakota Tatum MD Unavailable Unava ilable Dakota Tatum MD Unavailable Unava ilable Cynthia Srinivas Unavailable +[phone] Johanne Gutierrez Salome RN Unavailable +[phone] Pb [place] Gallito CORRECTIONAL OFFICER SERGEANT Unavailable +[phone] Encounter Details Date Type Department Care Team (Late st Contact Info) Description 12/16/2017 MyC Medical Advice [address], [facility] [address] [place] [address] [place] [address] [place] [address] Social History Tobacco Use Types [...] Sex Assigned at Female 08/17/2018 7:56 AM SPARES SCHEDULER Legal Sex Female 4:24 AM SPARES SCHEDULER Gender Identity Female 08/17/2018 7:56 AM SPARES SCHEDULER Sexual Orientation Straight 08/17/2018 7: 56 AM SPARES SCHEDULER documented as of this encounter Plan of Treatment Upcoming Encounters Date Type Department Care Team (Late st Contact Info) Description 06/28/2025 3:00 PM SPARES SCHEDULER Office Visit [address] [place] [address] Fransisco Eddy MD [address] [place] [address] documented as of this encounter Visit Diagnoses Not on filedocumented in this encounter Additional Health Concerns Infection Onset Date Last Indicated Resolved Time Rule Out COVID-19 05/08/2021 05/08/2021 05/09/2021 9:08 PM SPARES SCHEDULER Assessment Noted Time PHQ-9 Depression Total Score: 1 12/01/19 18 7:11 AM CDT documented as of this encounter Care Teams Business Solutions Director Relationship Specialty Start Date End Date Esperanza Gatica MD PCP - General Family Practice 10/13/11 12/29/21 [place] [address] [address] [address] PCP - Assigned PCP 12/05/17 08/23/18 Alfreda Ray PA-C [address] [place] [address] PCP - General Family Medicine 12/30/21 [place] [address] [address]ARCIA [address] Assigned PCP 12/05/17 09/30/19 [place] [address] [address] [address] Assigned PCP 10/01/19 03/02/20 [place] [address] [address] [address] Assigned PCP 03/03/20 05/25/20 [place] [address] [place] [address] Assigned PCP 05/26/20 09/28/20 [place] [address] [place] [address] Assigned PCP 09/29/20 07/31/22 [place] [address] [address] Assigned Musculoskeletal Provider 10/20/20 04/17/22 Alfreda Ray PA-C [address] [place] [address]70 Referring Physician Family Medicine 12/31/21 Katrin Orellana PA-C [address] [place] [address] 693255 Physician Medical Radiation Dosimetrist Dermatology 12/31/21 Shanna Vang PA-C [address] [place] [address] 729474 Assigned Cancer Care Provider 01/10/22 Fransisco Eddy MD [address] [place] [address] 785485 Assigned Rheumatology Provider 05/09/22 [place] [address] [place] [address] Assigned Pain Medication Provider 06/29/22 09/04/22 [place] [address] [place] [address] Assigned PCP 08/15/22 08/28/22 Katrin Orellana PA-C [address] [place] [address] Assigned Surgical Provider 08/15/22 02/10/24 Cristina Hsieh [facility] [address] [place] [address] Pharmacist Pharmacist 09/07/22 Alfreda Ray PA-C [address] [place] [address] 553862 Assigned Pain Medication Provider 09/05/22 09/10/23 Alfreda Ray PA-C [address] [place] [address] 894622 Assigned PCP 08/29/22 Cristina Hsieh [facility] [address] [address] Assigned MTM Pharmacist 09/26/22 Dakota Tatum MD [address] [address] Cardiovascular Disease 03/25/23 Dakota Tatum MD Assigned Heart and Vascular Provider 05/01/23 11/09/24 [place] [address] [address] , [address] [address] Assigned Musculoskeletal Provider 04/12/24 Johanne Gutierrez, RN RN Clinical Product Navigator Primary Care - CC 08/18/24 08/18/24 Linda Ambriz, [facility] Lead Pipe Fitter Maintenance 08/18/24 08/23/24 documented as of this encounter
--- OUTSIDE RECORDS SUMMARY | 2025-02-24 20:55 | XMS_ITS | Encounter Summary ---
Author Organization [facility] Address [address] [place] [address] Care Team Providers Care Solid Tire Finisher Name Role Phone Esperanza Gatica MD Primary Care Provider + Esperanza Gatica MD Unavailable +[phone] Esperanza Gatica MD Unavailable +[phone] Esperanza Gatica MD Unavailable +[phone] Esperanza Gatica MD Unavailable +405 Esperanza Gatica MD Unavailable +291 Esperanza Gatica MD Unavailable +[phone] Jesús Orourke MD Unavailable Alfreda RayC Primary Care Provider + Alfreda Ray PA-C Unavailable +- [phone] Katrin Orellana PA-C Unavailable +[phone] Shanna VangC Unavailable +[phone] Fransisco Eddy MD Unavailable +[phone] Esperanza Gatica MD Unavailable +[phone] Esperanza Gatica MD Unavailable +[phone] Katrin Orellana PA-C Unavailable Cristina Hsieh [facility] Unavailable +[phone] Cory Alfreda Liu PA-C Unavailable +[phone] Ho Raymustapha Liu PA-C Unavailable +[phone] Cristina Hsieh [facility] Unavailable +[phone] Dakota Tatum MD Unavailable Unava ilable Dakota Tatum MD Unavailable Unava ilable Cynthia Srinivas Unavailable +[phone] Brenda Johanne Salome [place] Unavailable [phone] Linda Ambriz [facility] Unavailable +[phone] Reason for Visit * Reason Onset Date Comments Medication Refill 08/26/2017 lisinopril-hyd rochlorothiazide (PRINZIDE/ZESTORETIC) 10-12.5 MG per tablet Encounter Details Date Type Department Care Team (Late st Contact Info) Description 08/26/[address], [address] [place] [address] [place] [address] [place] [address] Medication Refill (lisinopril-hydrochloro thiazide (PRINZIDE/ZESTORETIC) [...] Assigned at Female 08/17/2018 7:56 AM METAL MIXER Legal Sex Female 4:24 AM METAL MIXER Gender Identity Female 08/17/2018 7:56 AM METAL MIXER Sexual Orientation Straight 08/17/2018 7: 56 AM METAL MIXER documented as of this encounter Miscellaneous Notes * Telephone Encounter - Leigha Rinaldi RN - 08/26/2017 11:23 AM CST Prescription approved per [facility] Refill Protocol. Leigha Rinaldi RN L MIXER * Telephone Encounter - Diya Stone - [...] No positive test in past 12 months L MIXER documented in this encounter Plan of Treatment Upcoming Encounters Date Type Department Care Team (Azul st Contact Info) Description 06/28/2025 3:00 PM METAL MIXER Office Visit [place] [address] [address] [address] Fransisco Eddy MD [address] [place] [address] documented as of this encounter Visit Diagnoses Diagnosis HTN (hypertension), benign Essential hypertension, benign documented in this encounter Additional Health Concerns Infection Onset Date Last Indicated Resolved Time Rule Out COVID-19 05/08/2021 05/08/2021 05/09/2021 9:08 PM METAL MIXER Assessment Noted Time PHQ-9 Depression Total Score: 0 08/18/19 17 7:09 AM METAL MIXER documented as of this encounter Care Teams Solid Tire Finisher Relationship Specialty Start Date End Date Esperanza Gatica MD PCP - General Family Practice 10/13/11 12/29/21 [place] [address] [address] [address] PCP - Assigned PCP 12/05/17 08/23/18 Alfreda Ray PA-C [address] [place] [address] 136392 PCP - General Family Medicine 12/30/21 [place] [address] [address]ARCIA [address] Assigned PCP 12/05/17 09/30/19 [place] [address] [address]IA [address] Assigned PCP 10/01/19 03/02/20 [place] [address] [address] [address] Assigned PCP 03/03/20 05/25/20 [place] [address] [place] [address] Assigned PCP 05/26/20 09/28/20 [place] [address] [address]IA [address] Assigned PCP 09/29/20 07/31/22 [place] [address] [address] [facility] [place], [place] 572[address] Assigned Musculoskeletal Provider 10/20/20 04/17/22 Alfreda Ray PA-C [address] [place] [address] 598132 Referring Physician Family Medicine 12/31/21 Katrin Orellana PA-C [address] [place] [address] Physician Boiler Service Technician Dermatology 12/31/21 Shanna Vang PA-C [address] [place] [address] 657394 Assigned Cancer Care Provider 01/10/22 Fransisco Eddy MD [address] [place] [address] [phone] Assigned Rheumatology Provider 05/09/22 [place] [address] [place] [address] Assigned Pain Medication Provider 06/29/22 09/04/22 [place] [address] [place] [address] Assigned PCP 08/15/22 08/28/22 Katrin Orellana PA-C [address] [place] [address] Assigned Surgical Provider 08/15/22 02/10/24 Cristina Hsieh [facility] [address] [facility] [place] [address] Pharmacist Pharmacist 09/07/22 Alfreda Ray PA-C [address] [place] [address] Assigned Pain Medication Provider 09/05/22 09/10/23 Alfreda Ray PA-C [address] [place] [address] 786562 Assigned PCP 08/29/22 Cristina Hsieh [facility] [address] [address] Assigned MTM Pharmacist 09/26/22 Dakota Tatum MD [address] [address] Cardiovascular Disease 03/25/23 Dakota Tatum MD Assigned Heart and Vascular Provider 05/01/23 11/09/24 [place] [address] [address] , [address] [address] Assigned Musculoskeletal Provider 04/12/24 Johanne Gutierrez RN RN Clinical Product Navigator Primary Care - CC 08/18/24 08/18/24 Linda Ambriz, [facility] Lead Tractor Expert 08/18/24 08/23/24 documented as of this encounter
--- OUTSIDE RECORDS SUMMARY | 2025-02-24 20:55 | XMS_ITS | Encounter Summary ---
Author Organization [facility] Address [address] [place] [address] Care Team Providers Care Special Education Educational Assistant Name Role Phone Esperanza Gatica MD Primary Care Provider + Esperanza Gatica MD Unavailable + Esperanza Gatica MD Unavailable + Esperanza Gatica MD Unavailable + Esperanza Gatica MD Unavailable + Esperanza Gatica MD Unavailable + Jesús Orourke MD Unavailable Alfreda Ray-C Primary Care Provider + Alfreda Ray-C Unavailable + [phone] Katrin OrellanaC Unavailable +[phone] Shanna Vang-C Unavailable +[phone] Fransisco Eddy MD Unavailable +[phone] Esperanza Gatica MD Unavailable + Esperanza Gatica MD Unavailable + Katrin OrellanaC Unavailable +[phone] Cristina Hsieh [facility] Unavailable +[phone] Ray, Alfreda Liu PA-C Unavailable +[phone] Cory Alfreda Liu PA-C Unavailable +[phone] Cristina Hsieh [facility] Unavailable +[phone] Dakota Tatum MD Unavailable Unava ilable Dakota Tatum MD Unavailable Unava ilable Srinivas Marie DO Unavailable +[phone] Johanne Gutierrez RN Unavailable [phone] Mariana Ambrizie Gallito [facility] Unavailable +[phone] Reason for Visit * Reason Onset Date Comments MyChart Communication 10/04/2018 Encounter Details Date Type Department Care Team (Late st Contact Info) Description 10/04/2018 MyC Medical Advice [address], [facility] [address] [place] [address] [place] [address] [place] [address] MyChart Communication Social History Tobacco [...] Sex Assigned at Female 08/17/2018 7:56 AM KIER TENDER Legal Sex Female 4:24 AM KIER TENDER Gender Identity Female 08/17/2018 7:56 AM KIER TENDER Sexual Orientation Straight 08/17/2018 7: 56 AM KIER TENDER documented as of this encounter Plan of Treatment Upcoming Encounters Date Type Department Care Team (Late st Contact Info) Description 06/28/2025 3:00 PM KIER TENDER Office Visit [address] [address] Fransisco Eddy MD [address] [place] [address] documented as of this encounter Visit Diagnoses Not on filedocumented in this encounter Additional Health Concerns Infection Onset Date Last Indicated Resolved Time Rule Out COVID-19 05/08/2021 05/08/2021 05/09/2021 9:08 PM KIER TENDER Assessment Noted Time PHQ-9 Depression Total Score: 1 08/20/19 19 1:44 PM KIER TENDER documented as of this encounter Care Teams Special Education Educational Assistant Relationship Specialty Start Date End Date Esperanza Gatica MD PCP - General Family Practice 10/13/11 12/29/21 Alfreda Ray PA-C [address] [place] [address] PCP - General Family Medicine 12/30/21 [place] [address] [address] [address] Assigned PCP 12/05/17 09/30/19 [place] [address] [address] [address] Assigned PCP 10/01/19 03/02/20 [place] [address] [address] [address] Assigned PCP 03/03/20 05/25/20 [place] [address] [address] GARCIA [address] Assigned PCP 05/26/20 09/28/20 [place] [address] [place] [address] Assigned PCP 09/29/20 07/31/22 Jesú[place] [address] [place] [address] Assigned Musculoskeletal Provider 10/20/20 04/17/22 Alfreda Ray PA-C [address] [place] [address] 472422 Referring Physician Family Medicine 12/31/21 Katrin Orellana PA-C [address] [place] [address] Physician Irrigator Gravity Flow Dermatology 12/31/21 Shanna Vang PA-C [address] [place] [address] 133294 Assigned Cancer Care Provider 01/10/22 Fransisco Eddy MD [address] [place] [address] 234365 Assigned Rheumatology Provider 05/09/22 [place] [address] [place] [address] Assigned Pain Medication Provider 06/29/22 09/04/22 [place] [address] [place] [address] Assigned PCP 08/15/22 08/28/22 Katrin Orellana PA-C [address] [address] Assigned Surgical Provider 08/15/22 02/10/24 Cristina Hsieh [facility] [address] [facility] [place] [address] Pharmacist Pharmacist 09/07/22 Alfreda Ray PA-C [address] [place] [address] 450432 Assigned Pain Medication Provider 09/05/22 09/10/23 Alfreda Ray PA-C [address] [place] [address] 557582 Assigned PCP 08/29/22 Cristina Hsieh, [facility] [address] [address] Assigned MTM Pharmacist 09/26/22 Dakota Tatum MD [address] [address] Cardiovascular Disease 03/25/23 Dakota Tatum MD Assigned Heart and Vascular Provider 05/01/23 11/09/24 [place] [address] CELE GASTELUM, [address] [address] Assigned Musculoskeletal Provider 04/12/24 Johanne Gutierrez RN RN Clinical Product Navigator Primary Care - CC 08/18/24 08/18/24 Linda Ambriz, [facility] Lead Aluminum Sheet Cutter 08/18/24 08/23/24 documented as of this encounter
--- OUTSIDE RECORDS SUMMARY | 2025-02-24 20:55 | XMS_ITS | Encounter Summary ---
Author Organization [facility] Address [address] [place] [address] Care Team Providers Care Burrer Hand Name Role Phone Esperanza Gatica MD Primary Care Provider + Esperanza Gatica MD Unavailable +[phone] Esperanza Gatica MD Unavailable +187 Esperanza Gatica MD Unavailable +469 Esperanza Gatica MD Unavailable +[phone] Esperanza Gatica MD Unavailable +544 Esperanza Gatica MD Unavailable +[phone] Jesús Orourke MD Unavailable Alfreda RayC Primary Care Provider + Alfreda Ray PA-C Unavailable +- [phone] Katrin Orellana PA-C Unavailable +[phone] Shanna VangC Unavailable +[phone] Fransisco Eddy MD Unavailable +[phone] Esperanza Gatica MD Unavailable +[phone] Esperanza Gatica MD Unavailable +[phone] Katrin Orellana PA-C Unavailable Cristina Hsieh [facility] Unavailable +[phone] Cory Alfreda Liu PA-C Unavailable +[phone] Ho Raymustapha Liu PA-C Unavailable +[phone] Cristina Hsieh [facility] Unavailable +[phone] Dakota Tatum MD Unavailable Unava ilable Dakota Tatum MD Unavailable Unava ilable Cynthia, Srinivas Unavailable +[phone] Brenda Johanne Salome RN Unavailable +[phone] Mariana Ambrizie Gallito [facility] Unavailable +[phone] Reason for Visit * Reason Onset Date Comments Prior Auth - Medication 10/14/2017 Rogelioazepa m Encounter Details Date Type Department Care Team (Late st Contact Info) Description 10/14/2017 MyC Medical Advice [address], [address] [place] [address] [place] [address] [place] [address] Prior Auth - Medication (Temazepam) [...] Assigned at Female 08/17/2018 7:56 AM CHIEF TALENT OFFICER Legal Sex Female 4:24 AM CHIEF TALENT OFFICER Gender Identity Female 08/17/2018 7:56 AM CHIEF TALENT OFFICER Sexual Orientation Straight 08/17/2018 7: 56 AM CHIEF TALENT OFFICER documented as of this encounter Miscellaneous Notes * Telephone Encounter - Leigha Rinaldi RN - 10/15/2017 10:14 AM CDT Received prior auth APPROVAL for Temazepam effective 07/17/2017 - 06/20/2018. Information faxed to pharmacy and patient notified. Leigha Rinaldi RN * Telephone Encounter - Treva Cruz RN - 10/15/2017 9:26 AM CDT [facility] calling to get more information. They will be faxing over a form with more information on what they need in order to approve the PA Treva Cruz RN, BSN * Telephone Encounter - Leigha Rinaldi RN - 10/15/2017 7:30 AM CDT Prior auth submitted via [employer]. Can call to check the status. Was advised it can take up to 1-3 days. Leigha Rinaldi RN documented in this encounter Plan of Treatment Upcoming Encounters Date Type Department Care Team (Late st Contact Info) Description 06/28/2025 3:00 PM CHIEF TALENT OFFICER Office Visit [facility] Specialty [address] [address] Fransisco Eddy MD [address] [place] [address] [phone] documented as of this encounter Visit Diagnoses Not on filedocumented in this encounter Additional Health Concerns Infection Onset Date Last Indicated Resolved Time Rule Out COVID-19 05/08/2021 05/08/2021 05/09/2021 9:08 PM CHIEF TALENT OFFICER Assessment Noted Time PHQ-9 Depression Total Score: 0 08/18/19 17 7:09 AM CHIEF TALENT OFFICER documented as of this encounter Care Teams Burrer Hand Relationship Specialty Start Date End Date Esperanza Gatica MD PCP - General Family Practice 10/13/11 12/29/21 [place] [address] [place] [address] PCP - Assigned PCP 12/05/17 08/23/18 Alfreda Ray PA-C [address] [place] [address] PCP - General Family Medicine 12/30/21 [place] [address] [place] [address] Assigned PCP 12/05/17 09/30/19 [place] [address] [place] [address] Assigned PCP 10/01/19 03/02/20 [place] [address] [place] [address] Assigned PCP 03/03/20 05/25/20 [place] [address] [place] [address] Assigned PCP 05/26/20 09/28/20 [place] [address] [place] [address] Assigned PCP 09/29/20 07/31/22 [place] [address] [place] [address] Assigned Musculoskeletal Provider 10/20/20 04/17/22 Alfreda Ray PA-C [address] [place] [address] 708282 Referring Physician Family Medicine 12/31/21 Katrin Orellana PA-C [address] [place] [address] 970695 Physician Machine Featheredger And Reducer Dermatology 12/31/21 Shanna Vang PA-C [address] [place] [address] 535534 Assigned Cancer Care Provider 01/10/22 Fransisco Eddy MD [address] [place] [address] [phone] Assigned Rheumatology Provider 05/09/22 [place] [address] [place] [address] Assigned Pain Medication Provider 06/29/22 09/04/22 [place] [address] [place] [address] Assigned PCP 08/15/22 08/28/22 Katrin Orellana PA-C [address] [place] [address] 181555 Assigned Surgical Provider 08/15/22 02/10/24 Cristina Hsieh [facility] [address] [facility] [place] [address] Pharmacist Pharmacist 09/07/22 Alfreda Ray PA-C [address] [place] [address] Assigned Pain Medication Provider 09/05/22 09/10/23 Alfreda Ray PA-C [address] [place] [address] Assigned PCP 08/29/22 Cristina Hsieh, [facility] [address] [facility] [address] [place] [address] Assigned MTM Pharmacist 09/26/22 Dakota Tatum MD [address] [address] Cardiovascular Disease 03/25/23 Dakota Tatum MD Assigned Heart and Vascular Provider 05/01/23 11/09/24 [place] [address] CELE GASTELUM, [address] [address] Assigned Musculoskeletal Provider 04/12/24 Johanne Gutierrez RN TIFFANIE Clinical Product Navigator Primary Care - CC 08/18/24 08/18/24 Linda Ambriz, [facility] Lead Contact Acid Plant Operator Helper 08/18/24 08/23/24 documented as of this encounter
--- OUTSIDE RECORDS SUMMARY | 2025-02-24 20:55 | XMS_ITS | Encounter Summary ---
Author Organization [facility] Address [address] [place] [address] Care Team Providers Care Warrant Clerk Name Role Phone Esperanza Gatica MD Primary Care Provider + Esperanza Gatica MD Unavailable +[phone] Esperanza Gatica MD Unavailable +[phone] Esperanza Gatica MD Unavailable +[phone] Esperanza Gatcia MD Unavailable +650 Esperanza Gatica MD Unavailable +[phone] Esperanza Gatica MD Unavailable +[phone] Jesús Orourke MD Unavailable Alfreda RayC Primary Care Provider + Alfreda Ray PA-C Unavailable +- [phone] Katrin Orellana PA-C Unavailable +[phone] Shanna VangC Unavailable +[phone] Fransisco Eddy MD Unavailable +[phone] Esperanza Gatica MD Unavailable +[phone] Esperanza Gatica MD Unavailable +[phone] Katrin Orellana PA-C Unavailable Cristina Hsieh [facility] Unavailable +[phone] Cory Alfreda Liu PA-C Unavailable +[phone] Ho Raymustapha Liu PA-C Unavailable +[phone] Cristina Hsieh [facility] Unavailable +[phone] Dakota Tatum MD Unavailable Unava ilable Dakota Tatum MD Unavailable Unava ilable Cynthia Srinivas Unavailable +[phone] Johanne Gutierrez Salome RN Unavailable +[phone] Pb [place] Gallito WOOD GETTER Unavailable [phone] Encounter Details Date Type Department Care Team (Late st Contact Info) Description 08/17/2017 MyC Medical Advice [address], [facility] [address] [place] [address] [place] [address] [place] [address] Social History Tobacco Use Types [...] Sex Assigned at Female 08/17/2018 7:56 AM SHOE CASER Legal Sex Female 4:24 AM SHOE CASER Gender Identity Female 08/17/2018 7:56 AM SHOE CASER Sexual Orientation Straight 08/17/2018 7: 56 AM SHOE CASER documented as of this encounter Plan of Treatment Upcoming Encounters Date Type Department Care Team (Late st Contact Info) Description 06/28/2025 3:00 PM SHOE CASER Office Visit [address] 200 [place] [address] Fransisco Eddy MD [address] [place] [address] documented as of this encounter Visit Diagnoses Not on filedocumented in this encounter Additional Health Concerns Infection Onset Date Last Indicated Resolved Time Rule Out COVID-19 05/08/2021 05/08/2021 05/09/2021 9:08 PM SHOE CASER Assessment Noted Time PHQ-9 Depression Total Score: 0 08/18/19 17 7:09 AM SHOE CASER documented as of this encounter Care Teams Warrant Clerk Relationship Specialty Start Date End Date Esperanza Gatica MD PCP - General Family Practice 10/13/11 12/29/21 [place] [address] [address] GARCIA [address] PCP - Assigned PCP 12/05/17 08/23/18 Alfreda Ray PA-C [address] [place] [address] PCP - General Family Medicine 12/30/21 [place] [address] [address] GARCIA [address] Assigned PCP 12/05/17 09/30/19 [place] [address] [address]IA [address] Assigned PCP 10/01/19 03/02/20 [place] [address] [address]ARCIA [address] Assigned PCP 03/03/20 05/25/20 [place] [address] [place] [address] Assigned PCP 05/26/20 09/28/20 [place] [address] [place] [address] Assigned PCP 09/29/20 07/31/22 Jesú[place] [address] [place] [address] [address] Assigned Musculoskeletal Provider 10/20/20 04/17/22 Alfreda Ray PA-C [address] [place] [address] Referring Physician Family Medicine 12/31/21 Katrin Orellana PA-C [address] [place] [address] Physician Compressed Gas Plant Worker Dermatology 12/31/21 Shanna Vang PA-C [address] [place] [address] Assigned Cancer Care Provider 01/10/22 Fransisco Eddy MD [address] [place] [address] Assigned Rheumatology Provider 05/09/22 [place] [address] [place] [address] Assigned Pain Medication Provider 06/29/22 09/04/22 [place] [address] [place] [address] Assigned PCP 08/15/22 08/28/22 Katrin Orellana PA-C [address] [place] [address] Assigned Surgical Provider 08/15/22 02/10/24 Cristina Hsieh [facility] [address] [place] [address] Pharmacist Pharmacist 09/07/22 Alfreda Ray PA-C [address] [place] [address] Assigned Pain Medication Provider 09/05/22 09/10/23 Alfreda Ray PA-C [address] [place] [address] 339492 Assigned PCP 08/29/22 Cristina Hsieh [facility] [address] [address] Assigned MTM Pharmacist 09/26/22 Dakota Tatum MD [address] [address] Cardiovascular Disease 03/25/23 Dakota Tatum MD Assigned Heart and Vascular Provider 05/01/23 11/09/24 [place] [address] [place] , [address] [address] Assigned Musculoskeletal Provider 04/12/24 Johanne Gutierrez, RN RN Clinical Product Navigator Primary Care - CC 08/18/24 08/18/24 Linda Ambriz, [facility] Lead Access Registrar 08/18/24 08/23/24 documented as of this encounter
--- OUTSIDE RECORDS SUMMARY | 2025-02-24 20:55 | XMS_ITS | Encounter Summary ---
Author Organization [facility] Address [address] [place] [address] Care Team Providers Care Handle Bender Name Role Phone Esperanza Gatica MD Primary Care Provider + Esperanza Gtaica MD Unavailable +[phone] Esperanza Gatica MD Unavailable +[phone] Esperanza Gatica MD Unavailable +500 Esperanza Gatica MD Unavailable +[phone] Esperanza Gatica MD Unavailable +[phone] Esperanza Gatica MD Unavailable +[phone] Jesús Orourke MD Unavailable Alfreda RayC Primary Care Provider + Alfreda Ray PA-C Unavailable +- [phone] Katrin Orellana PA-C Unavailable [phone] Shanna VangC Unavailable +[phone] Fransisco Eddy MD Unavailable +[phone] Esperanza Gatica MD Unavailable +[phone] Esperanza Gatica MD Unavailable +[phone] Katrin Orellana PA-C Unavailable Cristina Hsieh [facility] Unavailable +[phone] Alfreda Ray Alexa KING Unavailable +[phone] Alfreda Ray Alexa KING Unavailable +[phone] Cristina Hsieh [facility] Unavailable Dakota Tatum MD Unavailable Unava ilable Dakota Tatum MD Unavailable Unava ilable CynthiaSrinivas Unavailable [phone] Brenda Johanne Salome MORENO Unavailable [phone] Linda Ambriz Gallito [facility] Unavailable [phone] Reason for Visit * Reason Onset Date Comments MyChart Communication 06/29/2017 Encounter Details Date Type Department Care Team (Late st Contact Info) Description 06/29/2017 MyC Medical [address], [address] [place] [address] [place] [address] [place], [place] [id number] MyChart Communication Social History Tobacco Use Types [...] Sex Assigned at Female 08/17/2018 7:56 AM INSTRUMENT ROOM TECHNICIAN Legal Sex Female 4:24 AM INSTRUMENT ROOM TECHNICIAN Gender Identity Female 08/17/2018 7:56 AM INSTRUMENT ROOM TECHNICIAN Sexual Orientation Straight 08/17/2018 7: 56 AM INSTRUMENT ROOM TECHNICIAN documented as of this encounter Miscellaneous Notes * Telephone Encounter - Yuliet Barrera RN - 06/29/2017 10:28 AM CST Recommend appt for sinus inf Yuliet Barrera RN, BS Clinical Nurse Triage. RUMENT ROOM TECHNICIAN documented in this encounter Plan of Treatment Upcoming Encounters Date Type Department Care Team (Late st Contact Info) Description 06/28/2025 3:00 PM INSTRUMENT ROOM TECHNICIAN Office Visit [facility] [address] [place] [phone] Fransisco Eddy MD [address] [place] [address] 686565 documented as of this encounter Visit Diagnoses Not on filedocumented in this encounter Additional Health Concerns Infection Onset Date Last Indicated Resolved Time Rule Out COVID-19 05/08/2021 05/08/2021 05/09/2021 9:08 PM INSTRUMENT ROOM TECHNICIAN Assessment Noted Time PHQ-9 Depression Total Score: 0 08/18/19 7:09 AM INSTRUMENT ROOM TECHNICIAN documented as of this encounter Care Teams Handle Bender Relationship Specialty Start Date End Date Esperanza Gatica MD PCP - General Family Practice 10/13/11 12/29/21 [place] [address] [address] GARCIA [address] PCP - Assigned PCP 12/05/17 08/23/18 Alfreda Ray PA-C [address] [place] [address] PCP - General Family Medicine 12/30/21 [place] [address] [address] GARCIA [address] Assigned PCP 12/05/17 09/30/19 [place] [address] [address]ARCIA [address] Assigned PCP 10/01/19 03/02/20 [place] [address] [place] [address] Assigned PCP 03/03/20 05/25/20 [place] [address] [place] [address] Assigned PCP 05/26/20 09/28/20 [place] [address] [place] [address] Assigned PCP 09/29/20 07/31/22 [place] [address] [facility] [place], [place] 866647 Assigned Musculoskeletal Provider 10/20/20 04/17/22 Alfreda Ray PA-C [address] [place] [address] 803882 Referring Physician Family Medicine 12/31/21 Katrin Orellana PA-C [address] [place] [address] 792675 Physician Set Up Mechanic Coating Machines Dermatology 12/31/21 Shanna Vang PA-C [address] [place] [address] [phone] Assigned Cancer Care Provider 01/10/22 Fransisco Eddy MD [address] [place] [address] [id number] Assigned Rheumatology Provider 05/09/22 [place] [address] [place] [address] Assigned Pain Medication Provider 06/29/22 09/04/22 [place] [address] [place] [address] Assigned PCP 08/15/22 08/28/22 Katrin Orellana PA-C [address] [place] [address] Assigned Surgical Provider 08/15/22 02/10/24 Cristina Hsieh [facility] [address] [place] [address] [place] [address] Pharmacist Pharmacist 09/07/22 Alfreda Ray PA-C [address] [place] [address] Assigned Pain Medication Provider 09/05/22 09/10/23 Alfreda Ray PA-C [address] [place] [address] Assigned PCP 08/29/22 Cristina Hsieh [facility] [address] [phone] Assigned MTM Pharmacist 09/26/22 Dakota Tatum MD [address] [address] Cardiovascular Disease 03/25/23 Dakota Tatum MD Assigned Heart and Vascular Provider 05/01/23 11/09/24 [place] [address] [place], [address] [address] Assigned Musculoskeletal Provider 04/12/24 Johanne Gutierrez RN RN Clinical Product Navigator Primary Care - CC 08/18/24 08/18/24 Linda Ambriz, [facility] Lead Caseworker Protective Services 08/18/24 08/23/24 documented as of this encounter
--- OUTSIDE RECORDS SUMMARY | 2025-02-24 20:55 | XMS_ITS | Encounter Summary ---
Author Organization [facility] Address [address] [place] [address] Care Team Providers Care Reinsurance Analyst Name Role Phone Esperanza Gatica MD Primary Care Provider + Esperanza Gatica MD Unavailable +[phone] Esperanza Gatica MD Unavailable +[phone] Esperanza Gatica MD Unavailable +108 Esperanza Gatica MD Unavailable +787 Esperanza Gatica MD Unavailable +229 Esperanza Gatica MD Unavailable +[phone] Jesús Orourke MD Unavailable Alfreda RayC Primary Care Provider + Alfreda Ray PA-C Unavailable +- [phone] Katrin Orellana PA-C Unavailable [phone] Shanna VangC Unavailable +[phone] Fransisco Eddy MD Unavailable +[phone] Esperanza Gatica MD Unavailable +[phone] Esperanza Gatica MD Unavailable +[phone] Katrin Orellana PA-C Unavailable Cristina Hsieh [facility] Unavailable +[phone] Cory Alfreda Liu PA-C Unavailable +[phone] Ho Raymustapha Liu PA-C Unavailable +[phone] Cristina Hsieh [facility] Unavailable +[phone] Dakota Tatum MD Unavailable Unava ilable Dakota Tatum MD Unavailable Unava ilable Cynthia, Srinivas Unavailable +[phone] Brenda Johanne Salome MORENO Unavailable [phone] PbMelodyGully Gallito [facility] Unavailable +[phone] Reason for Visit * Reason Onset Date Comments Medication Question 05/10/2018 Encounter Details Date Type Department Care Team (Late st Contact Info) Description 05/10/2018 MyC Medical Advice [address], [address] [place] [address] [place] [address] [place] [address] Medication Question Social History Tobacco [...] Sex Assigned at Female 08/17/2018 7:56 AM SUMO WRESTLER Legal Sex Female 4:24 AM SUMO WRESTLER Gender Identity Female 08/17/2018 7:56 AM SUMO WRESTLER Sexual Orientation Straight 08/17/2018 7: 56 AM SUMO WRESTLER documented as of this encounter Miscellaneous Notes * Telephone Encounter - Leigha Rinaldi RN - 05/10/2018 3:41 PM CST ANTHROPOMETRIST checked 05/10/2018: Does not reflect that patient received rx's. 04/15/2018 GABAPENTIN 100 MG CAPSULE 120.00 04/04/2018 TEMAZEPAM 7.5 MG CAPSULE 30.00 04/04/2018 TRAMADOL HCL 50 MG TABLET 180.00 Leigha Rinaldi RN WRESTLER documented in this encounter Plan of Treatment Upcoming Encounters Date Type Department Care Team (Late st Contact Info) Description 06/28/2025 3:00 PM SUMO WRESTLER Office Visit [facility] [address] 200 [place] [phone] Fransisco Eddy MD [address] [place] [address] documented as of this encounter Visit Diagnoses Not on filedocumented in this encounter Additional Health Concerns Infection Onset Date Last Indicated Resolved Time Rule Out COVID-19 05/08/2021 05/08/2021 05/09/2021 9:08 PM SUMO WRESTLER Assessment Noted Time PHQ-9 Depression Total Score: 1 04/05/20 18 7:16 AM CDT documented as of this encounter Care Teams Reinsurance Analyst Relationship Specialty Start Date End Date Esperanza Gatica MD PCP - General Family Practice 10/13/11 12/29/21 [place] [address] [address] GARCIA [address] PCP - Assigned PCP 12/05/17 08/23/18 Alfreda Ray PA-C [address] [place] [address] PCP - General Family Medicine 12/30/21 [place] [address] L[address] GARCIA [address] Assigned PCP 12/05/17 09/30/19 [place] [address] [place] [address] Assigned PCP 10/01/19 03/02/20 [place] [address] [place] [address] Assigned PCP 03/03/20 05/25/20 [place] [address] [place] [address] Assigned PCP 05/26/20 09/28/20 [place] [address] [place] [address] Assigned PCP 09/29/20 07/31/22 [place] [address] [facility] [place] [address] Assigned Musculoskeletal Provider 10/20/20 04/17/22 Alfreda Ray PA-C [address] [place] [address] 419162 Referring Physician Family Medicine 12/31/21 Katrin Orellana PA-C [address] [place] [address] [id number] Physician Manager Testing Dermatology 12/31/21 Shanna Vang PA-C [address] [place] [address] 199014 Assigned Cancer Care Provider 01/10/22 Fransisco Eddy MD [address] [place] [address] 88 [place] [address] Assigned Rheumatology Provider 05/09/22 [place] [address] [place] [address] Assigned Pain Medication Provider 06/29/22 09/04/22 [place] [address] [place] [address] Assigned PCP 08/15/22 08/28/22 Katrin Orellana PA-C [address] [place] [address] Assigned Surgical Provider 08/15/22 02/10/24 Cristina Hsieh [facility] [address] [facility] [place] [address] Pharmacist Pharmacist 09/07/22 Alfreda Ray PA-C [address] [place] [address] Assigned Pain Medication Provider 09/05/22 09/10/23 Alfreda Ray PA-C [address] [place] [address] Assigned PCP 08/29/22 Cristina Hsieh [facility] [address] [id number] Assigned MTM Pharmacist 09/26/22 Dakota Tatum MD [address] [facility] [address] [address] [place] [address] Cardiovascular Disease 03/25/23 Dakota Tatum MD Assigned Heart and Vascular Provider 05/01/23 11/09/24 [place] [address] [address], [facility] [address] [place] [address] Assigned Musculoskeletal Provider 04/12/24 Johanne Gutierrez RN RN Clinical Product Navigator Primary Care - CC 08/18/24 08/18/24 Linda Ambriz, [facility] Lead Toxicology Teacher 08/18/24 08/23/24 documented as of this encounter
--- OUTSIDE RECORDS SUMMARY | 2025-02-24 20:55 | XMS_ITS | Encounter Summary ---
Author Organization [facility] Address [address] [place] [address] Care Team Providers Care Blade Boner Name Role Phone Esperanza Gatica MD Primary Care Provider + Esperanza Gatica MD Unavailable +[phone] Esperanza Gatica MD Unavailable +374 Esperanza Gatica MD Unavailable +619 Esperanza Gatica MD Unavailable +400 Esperanza Gatica MD Unavailable +187 Esperanza Gatica MD Unavailable +[phone] Jesús Orourke MD Unavailable Alfreda RayC Primary Care Provider + Alfreda Ray PA-C Unavailable +- [phone] Katrin Orellana PA-C Unavailable +[phone] Shanna VangC Unavailable +[phone] Fransisco Eddy MD Unavailable +[phone] Esperanza Gatica MD Unavailable +[phone] Esperanza Gatica MD Unavailable +[phone] Katrin Orellana PA-C Unavailable Cristina Hsieh [facility] Unavailable +[phone] Cory Alfreda Liu PA-C Unavailable +[phone] Ho Raymustapha Liu PA-C Unavailable +[phone] Cristina Hsieh [facility] Unavailable +[phone] Dakota Tatum MD Unavailable Unava ilable Dakota Tatum MD Unavailable Unava ilable Cynthia, Srinivas Unavailable +[phone] Brenda Johanne Salome RN Unavailable [phone] Mariana Ambrizie Gallito [facility] Unavailable +[phone] Reason for Visit * Reason Onset Date Comments Medication Refill 08/12/2017 traZODone and temazepam Encounter Details Date Type Department Care Team (Late st Contact Info) Description 08/12/[address], [address] [place] [address] [place] [address] [place] [address] Medication Refill (traZODone and temazepam ) Social [...] Sex Assigned at Female 08/17/2018 7:56 AM SHIELD OPERATOR Legal Sex Female 4:24 AM SHIELD OPERATOR Gender Identity Female 08/17/2018 7:56 AM SHIELD OPERATOR Sexual Orientation Straight 08/17/2018 7: 56 AM SHIELD OPERATOR documented as of this encounter Miscellaneous Notes * Telephone Encounter - Jacqui Whiteside CMA - 08/13/2017 4:22 PM SHIELD OPERATOR Faxed temazepam to [facility] at [phone]. Jacqui Whiteside CMA LD OPERATOR * Telephone Encounter - Leigha Rinaldi RN - 08/13/2017 3:20 PM CST .Routing refill request to provider for review/approval because: Drug not on the [facility] refill protocol : TEMAZEPAM Leigha Rinaldi RN LD OPERATOR * Telephone Encounter - Diya Stone - 08/12/2017 2:22 PM CST traZODone (DESYREL) 50 MG tablet Sig: Take 1 capsule (7.5 mg) by mouth nightly as needed for sleep Last Written Prescription Date: 04/22/17 Last Fill Quantity: 30, # refills: 3 Last Office Visit with [facility], [facility] or [facility] prescribing provider: 07/02/2017 Routing refill request to provider for review/approval because: Drug not on the [facility], [facility] or [facility] refill protocol or controlled substance Requested Prescriptions [...] No positive test in past 12 months LD OPERATOR documented in this encounter Plan of Treatment Upcoming Encounters Date Type Department Care Team (Late st Contact Info) Description 06/28/2025 3:00 PM SHIELD OPERATOR Office Visit [facility] [address] [place] [address] 200 [place] [phone] Fransisco Eddy MD [address] [place] [address] documented as of this encounter Visit Diagnoses Diagnosis Insomnia, unspecified type documented in this encounter Additional Health Concerns Infection Onset Date Last Indicated Resolved Time Rule Out COVID-19 05/08/2021 05/08/2021 05/09/2021 9:08 PM SHIELD OPERATOR Assessment Noted Time PHQ-9 Depression Total Score: 0 08/18/19 17 7:09 AM SHIELD OPERATOR documented as of this encounter Care Teams Blade Boner Relationship Specialty Start Date End Date Esperanza Gatica MD PCP - General Family Practice 10/13/11 12/29/21 [place] [address] [place] [address] PCP - Assigned PCP 12/05/17 08/23/18 Alfreda Ray PA-C [address] [place] [address] PCP - General Family Medicine 12/30/21 [place] [address] [place] [address] Assigned PCP 12/05/17 09/30/19 [place] [address] [place] [address] Assigned PCP 10/01/19 03/02/20 [place] [address] [place] [address] Assigned PCP 03/03/20 05/25/20 [place] [address] [place] [address] Assigned PCP 05/26/20 09/28/20 [place] [address] [place] [address] Assigned PCP 09/29/20 07/31/22 [place] [address] [facility] [address] [address] Assigned Musculoskeletal Provider 10/20/20 04/17/22 Alfreda Ray PA-C [address] [place] [address] 133992 Referring Physician Family Medicine 12/31/21 Katrin Orellana PA-C [address] [place] [address] 973275 Physician Medical Imaging Specialist Dermatology 12/31/21 Shanna Vang PA-C [address] [place] [address] 961424 Assigned Cancer Care Provider 01/10/22 Fransisco Eddy MD [address] [place] [address] Assigned Rheumatology Provider 05/09/22 [place] [address] [place] [place] [address] Assigned Pain Medication Provider 06/29/22 09/04/22 [place] [address] [address] [facility] [place] [address] Assigned PCP 08/15/22 08/28/22 Katrin Orellana PA-C [address] [place] [address] Assigned Surgical Provider 08/15/22 02/10/24 Cristina Hsieh [facility] [address] [place] [address] Pharmacist Pharmacist 09/07/22 Alfreda Ray PA-C [address] [place] [address] 448252 Assigned Pain Medication Provider 09/05/22 09/10/23 Alfreda Ray PA-C [address] [place] [address] Assigned PCP 08/29/22 Cristina Hsieh [facility] [address] [address] Assigned MTM Pharmacist 09/26/22 Dakota Tatum MD 1600 [facility] [address] [place] [address] Cardiovascular Disease 03/25/23 Dakota Tatum MD Assigned Heart and Vascular Provider 05/01/23 11/09/24 [place] [address] [address], [facility] [address] [place] [address] Assigned Musculoskeletal Provider 04/12/24 Johanne Gutierrez RN RN Clinical Product Navigator Primary Care - CC 08/18/24 08/18/24 Linda Ambriz, [facility] Lead Roll Weigher 08/18/24 08/23/24 documented as of this encounter
--- OUTSIDE RECORDS SUMMARY | 2025-02-24 20:55 | XMS_ITS | Encounter Summary ---
Author Organization [place] Address [address] [place] [address] Care Team Providers Care Loan Consultant Name Role Phone Alfreda Ray PA-C Primary Care Provider + Alfreda Ray PA-C Unavailable [phone] Katrin Orellana PA-C Unavailable [phone] Shanna Vang PA-C Unavailable [phone] Fransisco Eddy MD Unavailable [phone] Cristina Hsieh [facility] Unavailable [phone] Alfreda Ray PA-C Unavailable Cristina Hsieh [facility] Unavailable Dakota Tatum MD Unavailable Unava ilSrinivas Yun DO Unavailable [phone] Encounter Details Date Type Department Care Team (Late st Contact Info) Description 01/19/2025 Orders Only M [facility] Rheumatology [facility] [address] [facility] [address] 3rd [place] [address] Cristina Hsieh, [facility] [address] [address] Social History Tobacco Use Types [...] re latives? Once a week 03/15/2024 Attends Orthodoxy Services Not on file 03/15 Active Member of Clubs or Organizations Not on f ile 03/15/2024 Attends Club or Organization Meetings Not on anu e 03/15/2024 Marital Status Not on file 03/15/2024 PHQ-2 Answer Date Recorded PHQ-2 Score 0 03/16/2024 [facility] [place] of Occupat ional Health - Occupational Stress [...] Assigned at Female 08/17/2018 7:56 AM YARD MANAGER Legal Sex Female 4:24 AM YARD MANAGER Gender Identity Female 08/17/2018 7:56 AM YARD MANAGER Sexual Orientation Straight 08/17/2018 7: 56 AM YARD MANAGER documented as of this encounter Plan of Treatment Upcoming Encounters Date Type Department Care Team (Late st Contact Info) Description 06/28/2025 3:00 PM YARD MANAGER Office Visit [facility] [address] [phone] Fransisco Eddy MD [address] [place] [address] [id number] documented as of this encounter Visit Diagnoses Not on filedocumented in this encounter Additional Health Concerns Assessment Noted Time PHQ-9 Depression Total Score: 5 03/09/20 23 10:57 AM CDT documented as of this encounter Care Teams Loan Consultant Relationship Specialty Start Date End Date Alfreda Ray PA-C [address] [place] [address] 886142 PCP - General Family Medicine 12/30/21 Alfreda Ray PA-C [address] [place] [address] Referring Physician Family Medicine 12/31/21 Katrin Orellana PA-C [address] [facility] 98 [place] [address] Physician Insulation Board Coater Operator Dermatology 12/31/21 Shanna Vang PA-C [address] 737904 Assigned Cancer Care Provider 01/10/22 Fransisco Eddy MD [address] [facility] 88 [place], [place] 239285 Assigned Rheumatology Provider 05/09/22 Cristina Hsieh [facility] [address] [facility] [address] [place], [place] [phone] Pharmacist Pharmacist 09/07/22 Alfreda Ray PA-C [address] [place] [address]1962 Assigned PCP 08/29/22 Cristina Hsieh [facility] [address] [address] Assigned MTM Pharmacist 09/26/22 Dakota Tatum MD [address] [address] Cardiovascular Disease 03/25/23 [place] [address] CE[address] GAST[address]UM, [address] [address] Assigned Musculoskeletal Provider 04/12/24 documented as of this encounter
--- OUTSIDE RECORDS SUMMARY | 2025-02-24 20:55 | XMS_ITS | Encounter Summary ---
Author Organization [place] Address [address] [place] [address] Care Team Providers Care Fox Raiser Name Role Phone Alfreda Ray PA-C Primary Care Provider + Alfreda Ray PA-C Unavailable Katrin Orellana PA-C Unavailable Shanna Vang-C Unavailable [phone] Fransisco Eddy MD Unavailable Cristina Hsieh [facility] Unavailable [phone] Alfreda Ray PA-C Unavailable Cristina Hsieh [facility] Unavailable Dakota Tatum MD Unavailable Unava ilSrinivas Yun DO Unavailable [phone] Reason for Visit * Reason Comments Medication Refill Encounter Details Date Type Department Care Team (Late st Contact Info) Description 01/19/2025 Refill [facility] [address] [address] Fransisco Eddy MD [address] [place] [address] Medication Refill Social History Tobacco Use Types [...] Answer Date Recorded PHQ-2 Score 0 03/16/2024 [facility] of Occupat ional Health - Occupational [...] Assigned at Female 08/17/2018 7:56 AM RETAIL PARTS PROFESSIONAL Legal Sex Female 4:24 AM RETAIL PARTS PROFESSIONAL Gender Identity Female 08/17/2018 7:56 AM RETAIL PARTS PROFESSIONAL Sexual Orientation Straight 08/17/2018 7: 56 AM RETAIL PARTS PROFESSIONAL documented as of this encounter Plan of Treatment Upcoming Encounters Date Type Department Care Team (Late st Contact Info) Description 06/28/2025 3:00 PM RETAIL PARTS PROFESSIONAL Office Visit [facility] [address] [phone] Fransisco Eddy MD [address] [place] [address] 099245 documented as of this encounter Visit Diagnoses Diagnosis Polyarthralgia Pain in joint, multiple sites documented in this encounter Additional Health Concerns Assessment Noted Time PHQ-9 Depression Total Score: 5 03/09/20 23 10:57 AM CDT documented as of this encounter Care Teams Fox Raiser Relationship Specialty Start Date End Date Alfreda Ray PA-C [address] [place] [address] 020082 PCP - General Family Medicine 12/30/21 Alfreda Ray PA-C [address] [place] [address] 536922 Referring Physician Family Medicine 12/31/21 Katrin Orellana PA-C [address] [place] [address] 98 [place] [address] Physician Propeller Inspector Dermatology 12/31/21 Shanna Vang PA-C [address] [place] [address] Assigned Cancer Care Provider 01/10/22 Fransisco Eddy MD [address] [place] [address] Assigned Rheumatology Provider 05/09/22 Cristina Hsieh [facility] [address] [facility] [place] [address] Pharmacist Pharmacist 09/07/22 Alfreda Ray PA-C [address] [place] [address] 682242 Assigned PCP 08/29/22 Cristina Hsieh [facility] [address] [phone] Assigned MTM Pharmacist 09/26/22 Dakota Tatum MD [address] [address] Cardiovascular Disease 03/25/23 [place] [address] CELE GASTELUM, [address] [address] Assigned Musculoskeletal Provider 04/12/24 documented as of this encounter
--- OUTSIDE RECORDS SUMMARY | 2025-02-24 20:55 | XMS_ITS | Encounter Summary ---
Author Organization [place] Address [address] [place] [address] Care Team Providers Care Senior Ui Software Engineer Name Role Phone Kelly Haley MD Primary Care Provider + Kelly Haley MD Unavailable [phone] Kelly Haley MD Unavailable [phone] Kelly Haley MD Unavailable +[phone] Kelly Haley MD Unavailable [phone] Kelly Haley MD Unavailable +[phone] Kelly Haley MD Unavailable [phone] Jesús Orourke MD Unavailable Alfreda RayC Primary Care Provider + Alfreda Ray PA-C Unavailable [phone] Katrin Orellana PA-C Unavailable [phone] Shanna VangC Unavailable [phone] Fransisco Eddy MD Unavailable [phone] Kelly Haley MD Unavailable [phone] Kelly Haley MD Unavailable [phone] Katrin Orellana PA-C Unavailable Cristina Hsieh [facility] Unavailable [phone] Cory Alfreda Liu PA-C Unavailable [phone] Ho Raymustapha Liu PA-C Unavailable [phone] Cristina Hsieh [facility] Unavailable [phone] Dakota Tatum MD Unavailable Unava ilable Dakota Tatum MD Unavailable Unava ilable CynthiaSrinivas Unavailable [phone] Brenda Johanne Salome MORENO Unavailable [phone] Linda Ambriz Gallito BRIM CUTTER Unavailable [phone] Reason for Visit * Reason Onset Date Comments Refill Request 06/16/2018 HYDROcodone-acet aminophen (NORCO) 5-325 MG per tablet Encounter Details Date Type Department Care Team (Late st Contact Info) Description 06/16/2018 MyC Refill [address], [address] [place] [address] [place] [address] [place] [address] Refill Request (HYDROcodone-acetamino phen ... [...] Sex Assigned at Female 08/17/2018 7:56 AM WILLOW ANALYST Legal Sex Female 4:24 AM WILLOW ANALYST Gender Identity Female 08/17/2018 7:56 AM WILLOW ANALYST Sexual Orientation Straight 08/17/2018 7: 56 AM WILLOW ANALYST documented as of this encounter Miscellaneous Notes * Telephone Encounter - Leigha Rinaldi RN - 06/17/2018 1:45 PM CST Duplicate. Leigha Rinaldi RN OW ANALYST * Telephone Encounter - Diya Stone - [...] Score(s): No flowsheet data found. ?? Last [facility] website verification: Done 03.16.18 Last Written Prescription Date: 03/24/18 Last Fill Quantity: 90, # refills: 0 Last Office Visit with [facility] primary care provider: 04/04/2018 Clinic visit frequency required: Q 3 months Future Office visit: Next 5 appointments (look out 90 days) Jul 05, 2018 10:00 AM WILLOW ANALYST PHYSICAL with Kelly Haley MD [facility] [address] [place] [address], [address] [address] Controlled substance agreement on file: Yes: Date 03/08/15. Processing: Patient will draft roller picker in clinic FLASH RANGING CREWMEMBER checked in past 3 months? No, route to RN OW ANALYST documented in this encounter Plan of Treatment Upcoming Encounters Date Type Department Care Team (Late st Contact Info) Description 06/28/2025 3:00 PM WILLOW ANALYST Office Visit [facility] [address] [address] Fransisco Eddy MD [address] [place] [address] documented as of this encounter Visit Diagnoses Diagnosis Primary osteoarthritis involving multiple joints documented in this encounter Additional Health Concerns Infection Onset Date Last Indicated Resolved Time Rule Out COVID-19 05/08/2021 05/08/2021 05/09/2021 9:08 PM WILLOW ANALYST Assessment Noted Time PHQ-9 Depression Total Score: 1 04/05/20 18 7:16 AM CDT documented as of this encounter Care Teams Senior Ui Software Engineer Relationship Specialty Start Date End Date Kelly Haley MD PCP - General Family Practice 10/13/11 12/29/21 [place] [address] [address] [address] PCP - Assigned PCP 12/05/17 08/23/18 Alfreda Ray PA-C [address] [place] [address] PCP - General Family Medicine 12/30/21 [place] [address] [address] [address] Assigned PCP 12/05/17 09/30/19 [place] [address] [address] [address] Assigned PCP 10/01/19 03/02/20 [place] [address] [address] [address] Assigned PCP 03/03/20 05/25/20 [place] [address] [place] [address] Assigned PCP 05/26/20 09/28/20 [place] [address] [place] [address] Assigned PCP 09/29/20 07/31/22 Jesú[place] [address] [address] [facility] [place] [address] Assigned Musculoskeletal Provider 10/20/20 04/17/22 Alfreda Ray PA-C [address] [place] [address] [phone] Referring Physician Family Medicine 12/31/21 Katrin Orellana PA-C [address] [place] [address] 515915 Physician Stripper [place] Dermatology 12/31/21 Shanna Vang PA-C [address] [place] [address] 075354 Assigned Cancer Care Provider 01/10/22 Fransisco Eddy MD [address] [place] [address] 828135 Assigned Rheumatology Provider 05/09/22 [place] [address] [place] [address] Assigned Pain Medication Provider 06/29/22 09/04/22 [place] [address] [place] [address] Assigned PCP 08/15/22 08/28/22 Katrin Orellana PA-C [address] [place] [address] Assigned Surgical Provider 08/15/22 02/10/24 Cristina Hsieh [facility] [address] [facility] [place] [address] Pharmacist Pharmacist 09/07/22 Alfreda Ray PA-C [address] [place] [address] 924452 Assigned Pain Medication Provider 09/05/22 09/10/23 Alfreda Ray PA-C [address] [place] [address] 662422 Assigned PCP 08/29/22 Cristina Hsieh [facility] [address] [address] Assigned MTM Pharmacist 09/26/22 Dakota Tatum MD [address] [address] Cardiovascular Disease 03/25/23 Dakota Tatmu MD Assigned Heart and Vascular Provider 05/01/23 11/09/24 [place] [address] [place] , [address] [address] Assigned Musculoskeletal Provider 04/12/24 Johanne Gutierrez, RN RN Clinical Product Navigator Primary Care - CC 08/18/24 08/18/24 Linda Ambriz, [facility] Lead Drug Abuse Program Coordinator 08/18/24 08/23/24 documented as of this encounter
--- OUTSIDE RECORDS SUMMARY | 2025-02-24 20:55 | XMS_ITS | Clinical Summary ---
Author Organization [facility] Address [address] [place] [address] Care Team Providers Care Kidney Puller Name Role Phone Esperanza Gatica MD Primary Care Provider Unalion ilbrigido Source Comments You are receiving this document as you are listed as the primary care provider,follow-up provider, or the patient has been referred to you for consultation.This is in compliance with the Medicare andSt. [facility] Hospital[facility] EHR Incentive Program,which states Providers who transition their patient to another setting of careor provider of care or refers their patient to another provider of care shouldprovide summary care record for each transition of care or referral. [facility] Allergies No known active allergies Medications Cholecalciferol 1.25 MG (33290 UT) TABS Take by mouth. Active aspirin EC (ECOTRIN) 325 MG enteric coated tablet Take 1 Tablet by mouth daily. Active atenolol (TENORMIN) 25 MG tablet Take 25 mg by mouth. 12/06/2020 Active celecoxib (CELEBREX) 100 MG capsule Take 1 Capsule by mouth daily. 01/22/2021 Active gabapentin (NEURONTIN) 300 MG capsule Take 300 mg by mouth three times a day. 01/22/2021 Active lisinopril-hydr ochlorothiazide (PRINZIDE) 10-12.5 MG tablet Take 1 Tablet by mouth daily. 12/27/2020 Active HYDROcodone-j carlos taminophen (NORCO) 5-325 MG tablet 01/22/2021 Active simvastatin [...] Years Used Date Smoking Tobacco: Never Assessed Comments Unknown Sex and Gender Information Value Date Recorded Sex Assigned at Not on file Legal Sex Female 5:10 AM CDT Gender Identity Not on file Sexual Orientation Not on file Last Filed Vital Signs Vital Sign Reading Time Taken Comments Blood Pressure 144/67 05/12/2021 3:11 PM IN FLIGHT REFUELING CRAFTSMAN Pulse 66 05/12/2021 3:11 PM IN FLIGHT REFUELING CRAFTSMAN Temperature - - Respiratory Rate 11 05/12/2021 3:11 PM IN FLIGHT REFUELING CRAFTSMAN Oxygen Saturation - - Inhaled Oxygen Concentration - - Weight - - Height - - Body Mass Index - - Plan of Treatment Health Maintenance Due Date Last Done Comments Dexa 2007 RSV Vaccine (1 - 1-dose 75+ series) 2017 Medicare Annual Wellness Visit 06/21/2024 COVID-19 Vaccine (2024- season) 2025 03/19/2021, 08/23/2020, 08/02/2020 Influenza Vaccine (#1) 2025 , 02/20/2020, 03/01/2019, Additional history exists DTaP/Tdap/Td Vaccine (3 - Tdap) 04/08/2027 04/08/2017, 03/14/2007 Pneumococcal Vaccine 50+ Yrs Completed 04/08/2015, 09/23/2008 Zoster/Shingles Vaccine Completed 02/24/20, 08/19/2018, 08/13/2015 HepA Vaccine Aged Out No longer eligi ble based on patient's age to complete this topic HepB Vaccine Aged Out No longer eligi ble based on patient's age to complete this topic Hib Vaccine Aged Out No longer eligi ble based on patient's age to complete this topic IPV (Polio) Vaccine Aged Out No longe r eligible based on patient's age to complete this topic MCV4 Vaccine Aged Out No longer eligi ble based on patient's age to complete this topic Meningococcal B Vaccine Aged Out No l onger eligible based on patient's age to complete this topic Insurance MEDICARE ADVANTAGE Care Teams Kidney Puller Relationship Specialty Start Date End Date Esperanza Gatica MD PCP - General Family Practice 01/02/21
--- OUTSIDE RECORDS SUMMARY | 2025-02-24 20:55 | XMS_ITS | Encounter Summary ---
Author Organization [place] Address [address] [place] [address] Care Team Providers Care Teletype Installer Name Role Phone Esperanza Gatica MD Primary Care Provider + Esperanza Gatica MD Unavailable [phone] Esperanza Gatica MD Unavailable +[phone] Esperanza Gatica MD Unavailable +[phone] Esperanza Gatica MD Unavailable +[phone] Esperanza Gatica MD Unavailable +[phone] Esperanza Gatica MD Unavailable [phone] Jesús Orourke MD Unavailable Alfreda RayC Primary Care Provider + Alfreda Ray PA-C Unavailable +[phone] Katrin Orellana PA-C Unavailable [phone] Shanna VangC Unavailable [phone] Fransisco Eddy MD Unavailable [phone] Esperanza Gatica MD Unavailable +[phone] Epseranza Gatica MD Unavailable +[phone] Katrin Orellana PA-C Unavailable Cristina Hsieh [facility] Unavailable [phone] Cory Alfreda Liu PA-C Unavailable [phone] Ho Raymustapha Liu PA-C Unavailable [phone] Cristina Hsieh [facility] Unavailable [phone] Dakota Tatum MD Unavailable Unava ilable Dakota Tatum MD Unavailable Unava ilable Cynthia Srinivas Unavailable [phone] Johanne Gutierrez Salome RN Unavailable [phone] Pb [place] Gallito WOUND CARE SPECIALIST Unavailable [phone] Encounter Details Date Type Department Care Team (Late st Contact Info) Description 08/17/2017 MyC Medical Advice [address], [facility] [address] [place] [address] [place] [address] [place] [address] Social History Tobacco Use Types [...] Assigned at Female 08/17/2018 7:56 AM MARINE ERECTOR Legal Sex Female 4:24 AM MARINE ERECTOR Gender Identity Female 08/17/2018 7:56 AM MARINE ERECTOR Sexual Orientation Straight 08/17/2018 7: 56 AM MARINE ERECTOR documented as of this encounter Plan of Treatment Upcoming Encounters Date Type Department Care Team (Late st Contact Info) Description 06/28/2025 3:00 PM MARINE ERECTOR Office Visit [address] [place] [address] Fransisco Eddy MD [address] [place] [address] documented as of this encounter Visit Diagnoses Not on filedocumented in this encounter Additional Health Concerns Infection Onset Date Last Indicated Resolved Time Rule Out COVID-19 05/08/2021 05/08/2021 05/09/2021 9:08 PM MARINE ERECTOR Assessment Noted Time PHQ-9 Depression Total Score: 0 08/18/19 17 7:09 AM MARINE ERECTOR documented as of this encounter Care Teams Teletype Installer Relationship Specialty Start Date End Date Esperanza Gatica MD PCP - General Family Practice 10/13/11 12/29/21 [place] [address] [address] [address] PCP - Assigned PCP 12/05/17 08/23/18 Alfreda Ray PA-C [address] [place] [address] PCP - General Family Medicine 12/30/21 [place] [address] [address] [address] Assigned PCP 12/05/17 09/30/19 [place] [address] [address] [address] Assigned PCP 10/01/19 03/02/20 [place] [address] [address] [address] Assigned PCP 03/03/20 05/25/20 [place] [address] [place] [address] Assigned PCP 05/26/20 09/28/20 [place] [address] [place] [address] Assigned PCP 09/29/20 07/31/22 [place] [address] [address] Assigned Musculoskeletal Provider 10/20/20 04/17/22 Alfreda Ray PA-C [address] [place] [address] Referring Physician Family Medicine 12/31/21 Katrin Orellana PA-C [address] [place] [address] Physician Product Advisor Dermatology 12/31/21 Shanna Vang PA-C [address] [place] [address] Assigned Cancer Care Provider 01/10/22 Fransisco Eddy MD [address] [place] [address] Assigned Rheumatology Provider 05/09/22 [place] [address] [place] [address] Assigned Pain Medication Provider 06/29/22 09/04/22 [place] [address] [place] [address] Assigned PCP 08/15/22 08/28/22 Katrin Orellana PA-C [address] [place] [address] Assigned Surgical Provider 08/15/22 02/10/24 Cristina Hsieh [facility] [address] [facility] [place] [address] Pharmacist Pharmacist 09/07/22 Alfreda Ray PA-C [address] [place] [address] Assigned Pain Medication Provider 09/05/22 09/10/23 Alfreda Ray PA-C [address] [place] [address] 132322 Assigned PCP 08/29/22 Cristina Hsieh [facility] [address] [address] Assigned MTM Pharmacist 09/26/22 Dakota Tatum MD [address] [address] Cardiovascular Disease 03/25/23 Dakota Tatum MD Assigned Heart and Vascular Provider 05/01/23 11/09/24 [place] [address] [address] , [address] [address] Assigned Musculoskeletal Provider 04/12/24 Johanne Gutierrez, RN RN Clinical Product Navigator Primary Care - CC 08/18/24 08/18/24 Linda Ambriz, [facility] Lead English Language Learner Teacher 08/18/24 08/23/24 documented as of this encounter
--- OUTSIDE RECORDS SUMMARY | 2025-02-24 20:55 | XMS_ITS | Encounter Summary ---
Author Organization [facility] Address [address] [place] [address] Care Team Providers Care Cutter Grinder Name Role Phone Esperanza Gatica MD Primary Care Provider + Esperanza Gatica MD Unavailable +[phone] Esperanza Gatica MD Unavailable +[phone] Esperanza Gatica MD Unavailable +[phone] Esperanza Gatica MD Unavailable +[phone] Esperanza Gatica MD Unavailable +[phone] Esperanza Gatica MD Unavailable +[phone] Jesús Orourke MD Unavailable Alfreda RayC Primary Care Provider + Alfreda Ray PA-C Unavailable +- [phone] Katrin Orellana PA-C Unavailable [phone] Shanna VangC Unavailable +[phone] Fransisco Eddy MD Unavailable [phone] Esperanza Gatica MD Unavailable +[phone] Esperanza Gatica MD Unavailable +[phone] Katrin Orellana PA-C Unavailable Cristina Hsieh [facility] Unavailable +[phone] Cory Alfreda Liu PA-C Unavailable +[phone] Ho Raymustapha Liu PA-C Unavailable +[phone] [facility] Unavailable +[phone] Dakota Tatum MD Unavailable Unava ilable Dakota Tatum MD Unavailable Unava ilable Cynthia Srinivas Unavailable [phone] Brenda Johanne Salome MORENO Unavailable [phone] Linda Ambriz [facility] Unavailable [phone] Reason for Visit * Reason Comments Medication Refill simvastatin (ZOCOR) 20 MG tablet Encounter Details Date Type Department Care Team (Late st Contact Info) Description 08/14/[address], [address] [place] [address] Zenaida Coon, LUCINDA BIOCHEMISTRY SPECIALIST [address] [place] [address] Medication Refill (simvastatin (ZOCOR) 20 MG tablet) [...] Sex Assigned at Female 08/17/2018 7:56 AM CLINIC SUPERVISOR Legal Sex Female 4:24 AM CLINIC SUPERVISOR Gender Identity Female 08/17/2018 7:56 AM CLINIC SUPERVISOR Sexual Orientation Straight 08/17/2018 7: 56 AM CLINIC SUPERVISOR documented as of this encounter Miscellaneous Notes * Telephone Encounter - Leigha Rinaldi RN - 08/16/2018 12:26 PM CST Prescription approved per [facility] Refill Protocol. Leigha Gentry, RN IC SUPERVISOR * Telephone Encounter - Yohan Whitaker - 08/15/2018 11:41 AM CST Requested Prescriptions Pending Prescriptions Disp Refills ??? simvastatin (ZOCOR) 20 MG tablet [Pharmacy Med Name: SIMVASTATIN 20MG TABS] Last Written Prescription Date: 04/04/18 Last Fill Quantity: 90 TABLET, # refills: 3 Last office visit: 04/04/2018 with prescribing provider: TERA Future Office Visit: Next 5 appointments (look out 90 days) Aug 19, 2018 11:00 AM CLINIC SUPERVISOR PHYSICAL with Esperanza Gatica MD [facility] [address] [place] [phone] 90 tablet 3 Sig: TAKE ONE [...] No positive test in past 12 months IC SUPERVISOR documented in this encounter Plan of Treatment Upcoming Encounters Date Type Department Care Team (Late st Contact Info) Description 06/28/2025 3:00 PM CLINIC SUPERVISOR Office Visit [address] [address] Fransisco Eddy MD [address] [place] [address] documented as of this encounter Visit Diagnoses Diagnosis Hyperlipidemia LDL goal <160 Other and unspecified hyperlipidemia documented in this encounter Additional Health Concerns Infection Onset Date Last Indicated Resolved Time Rule Out COVID-19 05/08/2021 05/08/2021 05/09/2021 9:08 PM CLINIC SUPERVISOR Assessment Noted Time PHQ-9 Depression Total Score: 1 04/05/20 18 7:16 AM CDT documented as of this encounter Care Teams Cutter Grinder Relationship Specialty Start Date End Date Esperanza Gatica MD PCP - General Family Practice 10/13/11 12/29/21 [place] [address] [address] [address] PCP - Assigned PCP 12/05/17 08/23/18 Alfreda Ray PA-C [address] [place] [address] PCP - General Family Medicine 12/30/21 [place] [address] [address] [address] Assigned PCP 12/05/17 09/30/19 [place] [address] [address] [address] Assigned PCP 10/01/19 03/02/20 [place] [address] [address] [address] Assigned PCP 03/03/20 05/25/20 [place] [address] [place] [address] Assigned PCP 05/26/20 09/28/20 [place] [address] [place] [address] Assigned PCP 09/29/20 07/31/22 Jesú[place] [address] [place] [address] Assigned Musculoskeletal Provider 10/20/20 04/17/22 Alfreda Ray PA-C [address] [place] [address] 360412 Referring Physician Family Medicine 12/31/21 Katrin Orellana PA-C [address] [place] [address] 801775 Physician Quarry Supervisor Open Pit Dermatology 12/31/21 Shanna Vang PA-C [address] [place] [address] 067394 Assigned Cancer Care Provider 01/10/22 Fransisco Eddy MD [address] [place] [address] 629175 Assigned Rheumatology Provider 05/09/22 [place] [address] [place] [address] Assigned Pain Medication Provider 06/29/22 09/04/22 [place] [address] [place] [address] Assigned PCP 08/15/22 08/28/22 Katrin Orellana PA-C [address] [place] [address] Assigned Surgical Provider 08/15/22 02/10/[address] [facility] [address] [place] [address] Pharmacist Pharmacist 09/07/22 Alfreda Ray PA-C [address] [place] [address] 787302 Assigned Pain Medication Provider 09/05/22 09/10/23 Alfreda Ray PA-C [address] [place] [address] 406042 Assigned PCP 08/29/[address] [facility] [address] [address] Assigned MTM Pharmacist 09/26/22 Dakota Tatum MD [address] [address] Cardiovascular Disease 03/25/23 Dakota Tatum MD Assigned Heart and Vascular Provider 05/01/23 11/09/24 [place] [address] [address], [facility] [address] [place] [address] Assigned Musculoskeletal Provider 04/12/24 Johanne Gutierrez, RN RN Clinical Product Navigator Primary Care - CC 08/18/24 08/18/24 Linda Ambriz, [facility] Lead Forensic Science Examiner 08/18/24 08/23/24 documented as of this encounter
--- OUTSIDE RECORDS SUMMARY | 2025-02-24 20:55 | XMS_ITS | Encounter Summary ---
Author Organization [facility] Address [address] [place] [address] Care Team Providers Care Food Equipment Service Technician Name Role Phone Esperanza Gatica MD Primary Care Provider + Esperanza Gatica MD Unavailable +[phone] Esperanza Gatica MD Unavailable +[phone] Esperanza Gatica MD Unavailable +[phone] Esperanza Gatica MD Unavailable +[phone] Esperanza Gatica MD Unavailable +[phone] Esperanza Gatica MD Unavailable [phone] Jesús Orourke MD Unavailable Alfreda RayC Primary Care Provider + Alfreda Ray PA-C Unavailable +[phone] Katrin Orellana PA-C Unavailable [phone] Shanna VangC Unavailable [phone] Fransisco Eddy MD Unavailable [phone] Esperanza Gatica MD Unavailable [phone] Esperanza Gatica MD Unavailable [phone] Katrin Orellana PA-C Unavailable Cristina Hsieh [facility] Unavailable [phone] Cory Alfreda Liu PA-C Unavailable [phone] Cory Alfreda Liu PA-C Unavailable [phone] Cristina Hsieh [facility] Unavailable [phone] Dakota Tatum MD Unavailable Unava ilable Dakota Tatum MD Unavailable Unava ilable Cynthia, Srinivas Unavailable [phone] Brenda Johanne Salome MORENO Unavailable [phone] Linda Ambriz [facility] Unavailable [phone] Reason for Visit * Reason Onset Date Comments Medication Refill 07/27/2018 gabapentin (NE URONTIN) 100 MG capsule Encounter Details Date Type Department Care Team (Late st Contact Info) Description 07/26/[address], [address] [place] [address] [place] [address] [place] [address] Medication Refill (gabapentin (NEURONTIN) 100 [...] Sex Assigned at Female 08/17/2018 7:56 AM COMPRESSOR OPERATOR Legal Sex Female 4:24 AM COMPRESSOR OPERATOR Gender Identity Female 08/17/2018 7:56 AM COMPRESSOR OPERATOR Sexual Orientation Straight 08/17/2018 7: 56 AM COMPRESSOR OPERATOR documented as of this encounter Miscellaneous Notes * Telephone Encounter - Yohan Whitaker - 07/26/2018 5:59 PM CST gabapentin (NEURONTIN) 100 MG capsule Last Written Prescription Date: 05/05/18 Last Fill Quantity: 180 CAPSULE, # refills: 0 Last Office Visit: 04/04/18 WITH TERA Future Office visit: Next 5 appointments (look out 90 days) Aug 19, 2018 11:00 AM COMPRESSOR OPERATOR PHYSICAL with Esperanza Gatica MD [facility] [address] [place] [address], [facility] [address] [facility] [place] [address] Routing refill request to provider for review/approval because: Drug not on the [facility], [facility] or [facility] refill protocol or controlled substance RESSOR OPERATOR documented in this encounter Plan of Treatment Upcoming Encounters Date Type Department Care Team (Late st Contact Info) Description 06/28/2025 3:00 PM COMPRESSOR OPERATOR Office Visit [facility] [address] [address] Fransisco Eddy MD [address] [place] [address] documented as of this encounter Visit Diagnoses Diagnosis Primary osteoarthritis involving multiple joints documented in this encounter Additional Health Concerns Infection Onset Date Last Indicated Resolved Time Rule Out COVID-19 05/08/2021 05/08/2021 05/09/2021 9:08 PM COMPRESSOR OPERATOR Assessment Noted Time PHQ-9 Depression Total Score: 1 04/05/20 18 7:16 AM CDT documented as of this encounter Care Teams Food Equipment Service Technician Relationship Specialty Start Date End Date Esperanza Gatica MD PCP - General Family Practice 10/13/11 12/29/21 [place] [address] [place] [address] PCP - Assigned PCP 12/05/17 08/23/18 Alfreda Ray PA-C [address] [place] [address] PCP - General Family Medicine 12/30/21 [place] [address] [place] [address] Assigned PCP 12/05/17 09/30/19 [place] [address] [place] [address] Assigned PCP 10/01/19 03/02/20 [place] [address] [place] [address] Assigned PCP 03/03/20 05/25/20 [place] [address] [place] [address] Assigned PCP 05/26/20 09/28/20 [place] [address] [place] [address] Assigned PCP 09/29/20 07/31/22 Jesú[place] [address] [place] [address] Assigned Musculoskeletal Provider 10/20/20 04/17/22 Alfreda Ray PA-C [address] [place] [address] Referring Physician Family Medicine 12/31/21 Katrin Orellana PA-C [address] [address] Physician Industrial Welder Dermatology 12/31/21 Shanna Vang PA-C [address] [place] [address] Assigned Cancer Care Provider 01/10/22 Fransisco Eddy MD [address] [place] [address] 279745 Assigned Rheumatology Provider 05/09/22 [place] [address] [place] [address] Assigned Pain Medication Provider 06/29/22 09/04/22 [place] [address] [place] [address] Assigned PCP 08/15/22 08/28/22 Katrin Orellana PA-C [address] [place] [address] Assigned Surgical Provider 08/15/22 02/10/24 Cristina Hsieh [facility] [address] [place] [address] LISBETH HERNANDEZ [address] Pharmacist Pharmacist 09/07/22 Alfreda Ray PA-C [address] [place] [address] Assigned Pain Medication Provider 09/05/22 09/10/23 Alfreda Ray PA-C [address] [place] [address] Assigned PCP 08/29/22 Cristina Hsieh, [facility] [address] [address] Assigned MTM Pharmacist 09/26/22 Dakota Tatum MD [address] [address] Cardiovascular Disease 03/25/23 Dakota Tatum MD Assigned Heart and Vascular Provider 05/01/23 11/09/24 [place] [address] [address] , [address] [address] Assigned Musculoskeletal Provider 04/12/24 Johanne Gutierrez, RN RN Clinical Product Navigator Primary Care - CC 08/18/24 08/18/24 Linda Ambriz, [facility] Lead Regional Sales Leader 08/18/24 08/23/24 documented as of this encounter
--- OUTSIDE RECORDS SUMMARY | 2025-02-24 20:55 | XMS_ITS | Encounter Summary ---
Author Organization [facility] Address [address] [place] [address] Care Team Providers Care Drawer In Stitch Bonding Machine Name Role Phone Alfreda Ray PA-C Primary Care Provider + Alfreda Ray PA-C Unavailable [phone] Katrin Orellana PA-C Unavailable Shanna Vang PA-C Unavailable [phone] Fransisco Eddy MD Unavailable Cristina Hsieh [facility] Unavailable [phone] Alfreda Ray PA-C Unavailable [phone] Cristina Hsieh [facility] Unavailable [phone] Dakota Tatum MD Unavailable Unava ilSrinivas Yun DO Unavailable [phone] Reason for Visit * Reason Onset Date Comments Refill Request 01/19/2025 PREDNISONE 1 MG TABLET Encounter Details Date Type Department Care Team (Late st Contact Info) Description 01/19/2025 Refill [facility] Rheumatology [facility] [address] [facility] [address] [place] [address] Cristina Hsieh, [facility] [address] [address] Refill Request ( PREDNISONE 1 MG TABLET) Social History Tobacco Use Types Packs/Day Years [...] Date Recorded PHQ-2 Score 0 03/16/2024 [facility] [place] of Occupat ional Health - Occupational Stress [...] Sex Assigned at Female 08/17/2018 7:56 AM MORTGAGE ANALYST Legal Sex Female 4:24 AM MORTGAGE ANALYST Gender Identity Female 08/17/2018 7:56 AM MORTGAGE ANALYST Sexual Orientation Straight 08/17/2018 7: 56 AM MORTGAGE ANALYST documented as of this encounter Plan of Treatment Upcoming Encounters Date Type Department Care Team (Late st Contact Info) Description 06/28/2025 3:00 PM MORTGAGE ANALYST Office Visit [facility] [address] [phone] Fransisco Eddy MD [address] [place] [address] 440495 documented as of this encounter Visit Diagnoses Diagnosis Polyarthralgia Pain in joint, multiple sites documented in this encounter Additional Health Concerns Assessment Noted Time PHQ-9 Depression Total Score: 5 03/09/20 23 10:57 AM CDT documented as of this encounter Care Teams Drawer In Stitch Bonding Machine Relationship Specialty Start Date End Date Alfreda Ray PA-C [address] [place] [address] PCP - General Family Medicine 12/30/21 Alfreda Ray PA-C [address] [place] [address] Referring Physician Family Medicine 12/31/21 Katrin Orellana PA-C [address] [facility] [address] [place] [address] Physician Vitreo Retinal Surgeon Dermatology 12/31/21 Shanna Vang PA-C [address] [place] [address] 444634 Assigned Cancer Care Provider 01/10/22 Fransisco Eddy MD [address] [place] [address] 88 [place], [place] 487345 Assigned Rheumatology Provider 05/09/22 Cristina Hsieh [facility] [address] [place] [address] Pharmacist Pharmacist 09/07/22 Alfreda Ray PA-C [address] [place] [address] Assigned PCP 08/29/22 Cristina Hsieh [facility] [address] [id number] Assigned MTM Pharmacist 09/26/22 Dakota Tatum MD [address] [address] Cardiovascular Disease 03/25/23 [place] [address] [place] , [address] [address] Assigned Musculoskeletal Provider 04/12/24 documented as of this encounter
--- OUTSIDE RECORDS SUMMARY | 2025-02-24 20:55 | XMS_ITS | Encounter Summary ---
Author Organization [facility] Address [address] [place] [address] Care Team Providers Care Centerless Grinder Name Role Phone Alfreda Ray PA-C Primary Care Provider + Alfreda Ray PA-C Unavailable [phone] Katrin Orellana PA-C Unavailable Shanna Vang PA-C Unavailable +[phone] Fransisco Eddy MD Unavailable [phone] Cristina Hsieh [facility] Unavailable Alfreda Ray PA-C Unavailable +[phone] Cristina Hsieh [facility] Unavailable [phone] Dakota Tatum MD Unavailable Unava ilable Dakota Tatum MD Unavailable Unava ilable Srinivas Marie DO Unavailable [phone] Johanne Gutierrez RN Unavailable [phone] Linda Ambriz QUARTER SECTION IRONER Unavailable [phone] Encounter Details Date Type Department Care Team (Late st Contact Info) Description 07/04/2024 MyC Medical Advice [facility] [address] [facility] [address] [place] [address] Margie Santiago Social History Tobacco Use Types [...] Answer Date Recorded PHQ-2 Score 0 03/16/2024 [facility] Occupat ional Health - [...] Sex Assigned at Female 08/17/2018 7:56 AM STAFF COMBAT INFORMATION CENTER OFFICER Legal Sex Female 4:24 AM STAFF COMBAT INFORMATION CENTER OFFICER Gender Identity Female 08/17/2018 7:56 AM STAFF COMBAT INFORMATION CENTER OFFICER Sexual Orientation Straight 08/17/2018 7: 56 AM STAFF COMBAT INFORMATION CENTER OFFICER documented as of this encounter Plan of Treatment Upcoming Encounters Date Type Department Care Team (Late st Contact Info) Description 06/28/2025 3:00 PM STAFF COMBAT INFORMATION CENTER OFFICER Office Visit [facility] [address] [phone] Fransisco Eddy MD [address] [place] [address] 407955 documented as of this encounter Visit Diagnoses Not on filedocumented in this encounter Additional Health Concerns Assessment Noted Time PHQ-9 Depression Total Score: 5 03/09/20 23 10:57 AM CDT documented as of this encounter Care Teams Centerless Grinder Relationship Specialty Start Date End Date Alfreda Ray PA-C [address] [place] [address] 142732 PCP - General Family Medicine 12/30/21 Alfreda Ray PA-C [address] [place] [address] 199932 Referring Physician Family Medicine 12/31/21 Katrin Orellana PA-C [address] [place] [address] 98 [place] [address] Physician Welder Fitter Gas Dermatology 12/31/21 Shanna Vang PA-C [address] [place] [address] 418404 Assigned Cancer Care Provider 01/10/22 Fransisco Eddy MD [address] [place] [address] 744585 Assigned Rheumatology Provider 05/09/22 Cristina Hsieh [facility] [address] [place] [address] [address] [place], [place] [phone] Pharmacist Pharmacist 09/07/22 Alfreda Ray PA-C [address] [place] [address] 362782 Assigned PCP 08/29/22 Cristina Hsieh [facility] [address] [phone] Assigned MTM Pharmacist 09/26/22 Dakota Tatum MD [address] [address] Cardiovascular Disease 03/25/23 Dakota Tatum MD Assigned Heart and Vascular Provider 05/01/23 11/09/24 [place] [address] [address], [address] [address] Assigned Musculoskeletal Provider 04/12/24 Johanne Gutierrez, RN RN Clinical Product Navigator Primary Care - CC 08/18/24 08/18/24 Linda Ambriz, [facility] Lead Microbiology Technician 08/18/24 08/23/24 documented as of this encounter
--- OUTSIDE RECORDS SUMMARY | 2025-02-24 20:56 | XMS_ITS | Encounter Summary ---
Author Organization [facility] Address [address] [place] [address] Care Team Providers Care Supervisor Ordnance Truck Installation Name Role Phone Esperanza Gatica MD Primary Care Provider + Esperanza Gatica MD Unavailable +[phone] Esperanza Gatica MD Unavailable +[phone] Esperanza Gatica MD Unavailable +[phone] Esperanza Gatica MD Unavailable +601 Esperanza Gatica MD Unavailable +[phone] Esperanza Gatica MD Unavailable +[phone] Jesús Orourke MD Unavailable Alfreda RayC Primary Care Provider + Alfreda Ray PA-C Unavailable +- [phone] Katrin Orellana PA-C Unavailable +[phone] Shanna VangC Unavailable +[phone] Fransisco Eddy MD Unavailable +[phone] Esperanza Gatica MD Unavailable +[phone] Esperanza Gatica MD Unavailable +[phone] Katrin Orellana PA-C Unavailable Cristina Hsieh [facility] Unavailable +[phone] Cory Alfreda Liu PA-C Unavailable +[phone] Ho Raymustapha Liu PA-C Unavailable +[phone] Cristina Hsieh [facility] Unavailable +[phone] Dakota Tatum MD Unavailable Unava ilable Dakota Tatum MD Unavailable Unava ilable Cynthia Srinivas DO Unavailable +[phone] Brenda Johanne Salome MORENO Unavailable +[phone] Mariana Ambrizie Gallito WATER CONTROL SUPERVISOR Unavailable +[phone] Encounter Details Date Type Department Care Team (Late st Contact Info) Description 06/22/2012 MyC Medical Advice [address] [place] [address], [facility] [address] [place] [address] [facility] Social History Tobacco Use Types Packs/Day Years Used Date Smoking Tobacco: Former Cigarettes Q uit: 06/21/1973 Smokeless Tobacco: Former Alcohol Use Standard Drinks/Week Comments Yes 0 (1 standard drink = 0.6 oz pur e alcohol) rarely Comments No Sex and Gender Information Value Date Recorded Sex Assigned at Female 08/17/2018 7:56 AM PLATFORM CONSULTANT Legal Sex Female 4:24 AM PLATFORM CONSULTANT Gender Identity Female 08/17/2018 7:56 AM PLATFORM CONSULTANT Sexual Orientation Straight 08/17/2018 7: 56 AM PLATFORM CONSULTANT documented as of this encounter Plan of Treatment Upcoming Encounters Date Type Department Care Team (Late st Contact Info) Description 06/28/2025 3:00 PM PLATFORM CONSULTANT Office Visit [facility] [address] [address] Fransisco Eddy MD [address] [place] [address] documented as of this encounter Visit Diagnoses Not on filedocumented in this encounter Additional Health Concerns Infection Onset Date Last Indicated Resolved Time Rule Out COVID-19 05/08/2021 05/08/202105/0905/09/2021 9:08 PM PLATFORM CONSULTANT documented as of this encounter Care Teams Supervisor Ordnance Truck Installation Relationship Specialty Start Date End Date Esperanza Gatica MD PCP - General Family Practice 10/13/11 12/29/21 [place] [address] LISB[address] GARCIA [address] PCP - Assigned PCP 12/05/17 08/23/18 Alfreda Ray PA-C [address] [place] [address]11 PCP - General Family Medicine 12/30/21 [place] [address] [address] GARCIA 72268 Assigned PCP 12/05/17 09/30/19 [place] [address] [address] GARCIA 73369 Assigned PCP 10/01/19 03/02/20 [place] [address] [address] GARCIA 15114 Assigned PCP 03/03/20 05/25/20 [place] [address] [address] GARCIA 37227 Assigned PCP 05/26/20 09/28/20 [place] [address] L[address] GARCIA 84228 Assigned PCP 09/29/20 07/31/22 Jesú[place] [address] [address] Assigned Musculoskeletal Provider 10/20/20 04/17/22 Alfreda Ray PA-C [address] [place] [address] [phone] Referring Physician Family Medicine 12/31/21 Katrin Orellana PA-C [address] [place] [address] Physician Oyster Unloader Dermatology 12/31/21 Shanna Vang PA-C [address] [place] [address] 884724 Assigned Cancer Care Provider 01/10/22 Fransisco Eddy MD [address] [place] [address] 564995 Assigned Rheumatology Provider 05/09/22 [place] [address] [address] GARCIA [address]106 Assigned Pain Medication Provider 06/29/22 09/04/22 [place] [address] L[address] GARCIA 08478 Assigned PCP 08/15/22 08/28/22 Katrin Orellana PA-C [address] [place] [address] Assigned Surgical Provider 08/15/22 02/10/24 Cristina Hsieh [facility] [address] [facility] LISBETH HERNANDEZ [address] Pharmacist Pharmacist 09/07/22 Alfreda Ray PA-C [address] [place] [address] 589812 Assigned Pain Medication Provider 09/05/22 09/10/23 Alfreda Ray PA-C [address] [place] [address] 214702 Assigned PCP 08/29/22 Cristina Hsieh [facility] [address] [address] Assigned MTM Pharmacist 09/26/22 Dakota Tatum MD [address] [address] Cardiovascular Disease 03/25/23 Dakota Tatum MD Assigned Heart and Vascular Provider 05/01/23 11/09/24 [place] [address] [place] , [address] [address] Assigned Musculoskeletal Provider 04/12/24 Johanne Gutierrez, RN RN Clinical Product Navigator Primary Care - CC 08/18/24 08/18/24 Linda Ambriz, [facility] Lead Sap Treasury Consultant 08/18/24 08/23/24 documented as of this encounter
--- OUTSIDE RECORDS SUMMARY | 2025-02-24 20:56 | XMS_ITS | Encounter Summary ---
Author Organization [facility] Address [address] [place] [address] Care Team Providers Care Global Compensation Manager Name Role Phone Alfreda Ray PA-C Primary Care Provider + Alfreda Ray PA-C Unavailable + [phone] Katrin Orellana PA-C Unavailable +[phone] Shanna Vang PA-C Unavailable +[phone] Fransisco Eddy MD Unavailable +[phone] Esperanza Gatica MD Unavailable +[phone] Esperanza Gatica MD Unavailable +[phone] Katrin Orellana PA-C Unavailable +[phone] Cristina Hsieh [facility] Unavailable +- [phone] Alfreda Ray PA-C Unavailable + [phone] Alfreda Ray PA-C Unavailable + [phone] Cristina Hsieh [facility] Unavailable +[phone] Dakota Tatum MD Unavailable Unava ilable Dakota Tatum MD Unavailable Unava ilable Srinivas Marie DO Unavailable +[phone] Johanne Gutierrez RN Unavailable +[phone] Linda Ambriz [facility] Unavailable +[phone] Encounter Details Date Type Department Care Team (Late Contact Info) Description 08/27/2022 MyC Medical Advice [facility] [address] [facility] [address] [place] [phone] Mindy Herron Social History Tobacco Use Types [...] Sex Assigned at Female 08/17/2018 7:56 AM ASSEMBLER LAY UPS Legal Sex Female 4:24 AM ASSEMBLER LAY UPS Gender Identity Female 08/17/2018 7:56 AM ASSEMBLER LAY UPS Sexual Orientation Straight 08/17/2018 7: 56 AM ASSEMBLER LAY UPS COVID-19 Exposure Response Date Recorded In the last 10 days, have yo u been in contact with someone who was confirmed or suspected to have Coronavirus/COVID-19? No / Unsure 08/26/2022 9:39 AM ASSEMBLER LAY UPS documented as of this encounter Plan of Treatment Upcoming Encounters Date Type Department Care Team (Late Contact Info) Description 06/28/2025 3:00 PM ASSEMBLER LAY UPS Office Visit [facility] [address] [place] [phone] Fransisco Eddy MD [address] [place] [address] [phone] documented as of this encounter Visit Diagnoses Not on filedocumented in this encounter Additional Health Concerns Assessment Noted Time PHQ-9 Depression Total Score: 4 09/05/19 22 10:39 AM CDT documented as of this encounter Care Teams Global Compensation Manager Relationship Specialty Start Date End Date Alfreda Ray PA-C [address] [place] [address] 317052 PCP - General Family Medicine 12/30/21 Alfreda Ray PA-C [address] [place] [address] Referring Physician Family Medicine 12/31/21 Katrin Orellana PA-C [address] [place] [address] 315855 Physician Gripper Machine Operator Dermatology 12/31/21 Shanna Vang PA-C [address] [place] [address] 466744 Assigned Cancer Care Provider 01/10/22 Fransisco Eddy MD [address] [place] [address] [phone] Assigned Rheumatology Provider 05/09/22 [place] [address] [place] [address] Assigned Pain Medication Provider 06/29/22 09/04/22 [place] [address] [address]IS[address] GARCIA [address]596 Assigned PCP 08/15/22 08/28/22 Katrin Orellana PA-C [address] [place] [address] 984545 Assigned Surgical Provider 08/15/22 02/10/24 Cristina Hsieh [facility] [address] [facility] LISBETH HERNANDEZ [address] Pharmacist Pharmacist 09/07/22 Alfreda Ray PA-C [address] [place] [address] Assigned Pain Medication Provider 09/05/22 09/10/23 Alfreda Ray PA-C [address] [place] [address]63 Assigned PCP 08/29/22 Cristina Hsieh, [facility] [address] [facility] [address] [place] [address] Assigned MTM Pharmacist 09/26/22 Dakota Tatum MD [address] [facility] [address] [place] [address] Cardiovascular Disease 03/25/23 Dakota Tatum MD Assigned Heart and Vascular Provider 05/01/23 11/09/24 [place] [address] CE[address] GASTELUM, [address] [address] Assigned Musculoskeletal Provider 04/12/24 Johanne Gutierrez RN TIFFANIE Clinical Product Navigator Primary Care - CC 08/18/24 08/18/24 Linda Ambriz, [facility] Lead Sausage Cutter 08/18/24 08/23/24 documented as of this encounter
--- OUTSIDE RECORDS SUMMARY | 2025-02-24 20:56 | XMS_ITS | Encounter Summary ---
Author Organization [facility] Address [address] [place] [address] Care Team Providers Care Drier And Pulverizer Tender Name Role Phone Esperanza Gatica MD Primary Care Provider + Esperanza Gatica MD Unavailable + Esperanza Gatica MD Unavailable + Esperanza Gatica MD Unavailable + Esperanza Gatica MD Unavailable + Esperanza Gatica MD Unavailable + Jesús Orourke MD Unavailable Alfreda Ray-C Primary Care Provider + Alfreda Ray-C Unavailable + [phone] Katrin OrellanaC Unavailable +[phone] Shanna Vang-C Unavailable +[phone] Fransisco Eddy MD Unavailable +[phone] Esperanza Gatica MD Unavailable + Esperanza Gatica MD Unavailable + Katrin OrellanaC Unavailable +[phone] Cristina Hsieh [facility] Unavailable +[phone] Ray, Alfreda Liu PA-C Unavailable +[phone] Cory Alfreda Liu PA-C Unavailable +[phone] Cristina Hsieh [facility] Unavailable +[phone] Dakota Tatum MD Unavailable Unava ilable Dakota Tatum MD Unavailable Unava ilable Srinivas Marie DO Unavailable +[phone] Johanne Gutierrez RN Unavailable [phone] Linda Ambriz [facility] Unavailable +[phone] Reason for Visit * Reason Onset Date Comments Refill Request 08/01/2019 Encounter Details Date Type Department Care Team (Late st Contact Info) Description 08/01/2019 MyC Refill [address], [address] [place] [address] [place] [address] [place] [address] Refill Request Social History Tobacco [...] Assigned at Female 08/17/2018 7:56 AM SENIOR MECHANICAL DESIGNER Legal Sex Female 4:24 AM SENIOR MECHANICAL DESIGNER Gender Identity Female 08/17/2018 7:56 AM SENIOR MECHANICAL DESIGNER Sexual Orientation Straight 08/17/2018 7: 56 AM SENIOR MECHANICAL DESIGNER documented as of this encounter Miscellaneous [...] AM CDT PHYSICAL with Esperanza Gatica MD [facility] [address] [facility], [address] [facility] [address] Requested Prescriptions Pending Prescriptions Disp [...] for review/approval because: Drug not on the [facility] refill protocol OR MECHANICAL DESIGNER documented in this encounter Plan of Treatment Upcoming Encounters Date Type Department Care Team (Late st Contact Info) Description 06/28/2025 3:00 PM SENIOR MECHANICAL DESIGNER Office Visit [facility] [address] [place] [phone] Fransisco Eddy MD [address] [place] [address] documented as of this encounter Visit Diagnoses Diagnosis Insomnia, unspecified type Primary osteoarthritis involving multiple joints documented in this encounter Additional Health Concerns Infection Onset Date Last Indicated Resolved Time Rule Out COVID-19 05/08/2021 05/08/2021 05/09/2021 9:08 PM SENIOR MECHANICAL DESIGNER Assessment Noted Time PHQ-9 Depression Total Score: 1 08/20/19 19 1:44 PM SENIOR MECHANICAL DESIGNER documented as of this encounter Care Teams Drier And Pulverizer Tender Relationship Specialty Start Date End Date Esperanza Gatica MD PCP - General Family Practice 10/13/11 12/29/21 Alfreda Ray PA-C [address] [place] [address] PCP - General Family Medicine 12/30/21 [place] [address] [place] [address] Assigned PCP 12/05/17 09/30/19 [place] [address] [place] [address] Assigned PCP 10/01/19 03/02/20 [place] [address] [place] [address] Assigned PCP 03/03/20 05/25/20 [place] [address] [place] [address] Assigned PCP 05/26/20 09/28/20 [place] [address] [place] [address] Assigned PCP 09/29/20 07/31/22 Jesú[place] [address] [place] [address] Assigned Musculoskeletal Provider 10/20/20 04/17/22 Alfreda Ray PA-C [address] [place] [address] Referring Physician Family Medicine 12/31/21 Katrin Orellana PA-C [address] [place] [address] Physician Repairer Welding Systems And Equipment Dermatology 12/31/21 Shanna Vang PA-C [address] [place] [address] Assigned Cancer Care Provider 01/10/22 Fransisco Eddy MD [address] [place] [address] Assigned Rheumatology Provider 05/09/22 [place] [address] [address] [facility] [address] Assigned Pain Medication Provider 06/29/22 09/04/22 [place] [address] [address] [facility] [address] Assigned PCP 08/15/22 08/28/22 Katrin Orellana PA-C [address] [place] [address] Assigned Surgical Provider 08/15/22 02/10/24 Cristina Hsieh, [facility] [address] [place] [address] [place] [address] Pharmacist Pharmacist 09/07/22 Alfreda Ray PA-C [address] [place] [address] Assigned Pain Medication Provider 09/05/22 09/10/23 Alfreda Ray PA-C [address] [place] [address] Assigned PCP 08/29/22 Cristina Hsieh, [facility] [address] [address] Assigned MTM Pharmacist 09/26/22 Dakota Tatum MD [address] [address] Cardiovascular Disease 03/25/23 Dakota Tatum MD Assigned Heart and Vascular Provider 05/01/23 11/09/24 [place] [address] [facility], [address] [address] Assigned Musculoskeletal Provider 04/12/24 Johanne Gutierrez, RN RN Clinical Product Navigator Primary Care - CC 08/18/24 08/18/24 Linda Ambriz, [facility] Lead Systems Technologist 08/18/24 08/23/24 documented as of this encounter
--- OUTSIDE RECORDS SUMMARY | 2025-02-24 20:56 | XMS_ITS | Encounter Summary ---
Author Organization [facility] Address [address] [place] [address] Care Team Providers Care Paint Roller Covermaker Name Role Phone Esperanza Gatica MD Primary Care Provider + Esperanza Gatica MD Unavailable +[phone] Esperanza Gatica MD Unavailable +[phone] Esperanaz Gatica MD Unavailable +859 Esperanza Gatica MD Unavailable +148 Esperanza Gaitca MD Unavailable +207 Esperanza Gatica MD Unavailable +[phone] Jesús Orourke MD Unavailable Alfreda RayC Primary Care Provider + Alfreda Ray PA-C Unavailable +- [phone] Katrin Orellana PA-C Unavailable +[phone] Shanna VangC Unavailable +[phone] Fransisco Eddy MD Unavailable +[phone] Esperanza Gatica MD Unavailable +[phone] Esperanza Gatica MD Unavailable +[phone] Katrin Orellana PA-C Unavailable Cristina Hsieh [facility] Unavailable +[phone] Cory Alfreda Liu PA-C Unavailable +[phone] Cory Alfreda Liu PA-C Unavailable +[phone] Cristina Hsieh [facility] Unavailable +[phone] Dakota Tatum MD Unavailable Unava ilable Dakota Tatum MD Unavailable Unava ilable Cynthia, Srinivas Unavailable +[phone] Brenda Johanne Salome [place] Unavailable [phone] Mariana Ambrizie Gallito [facility] Unavailable +[phone] Reason for Visit * Reason Onset Date Comments Imm/Inj 08/19/2018 Shingrix Encounter Details Date Type Department Care Team (Late st Contact Info) Description 08/19/2018 MyC Medical Advice [address], [address] [place] [address] [place] [address] [address] [place], [place] [phone] Imm/Inj (Shingrix) Social History Tobacco Use Types [...] Sex Assigned at Female 08/17/2018 7:56 AM HIDE GRADER Legal Sex Female 4:24 AM HIDE GRADER Gender Identity Female 08/17/2018 7:56 AM HIDE GRADER Sexual Orientation Straight 08/17/2018 7: 56 AM HIDE GRADER documented as of this encounter Plan of Treatment Upcoming Encounters Date Type Department Care Team (Late st Contact Info) Description 06/28/2025 3:00 PM HIDE GRADER Office Visit [address] [phone] Fransisco Eddy MD [address] [place] [address] 917055 documented as of this encounter Visit Diagnoses Not on filedocumented in this encounter Additional Health Concerns Infection Onset Date Last Indicated Resolved Time Rule Out COVID-19 05/08/2021 05/08/2021 05/09/2021 9:08 PM HIDE GRADER Assessment Noted Time PHQ-9 Depression Total Score: 1 08/20/19 19 1:44 PM HIDE GRADER documented as of this encounter Care Teams Paint Roller Covermaker Relationship Specialty Start Date End Date Esperanza Gatica MD PCP - General Family Practice 10/13/11 12/29/21 [place] [address] [address] GARCIA [address] PCP - Assigned PCP 12/05/17 08/23/18 Alfreda Ray PA-C [address] [place] [address] 682852 PCP - General Family Medicine 12/30/21 [place] [address] [address] [address] Assigned PCP 12/05/17 09/30/19 [place] [address] [address] GARCIA [address] Assigned PCP 10/01/19 03/02/20 [place] [address] LISB[address] GARCIA [address] Assigned PCP 03/03/20 05/25/20 [place] [address] [place] [address] Assigned PCP 05/26/20 09/28/20 [place] [address] LISB[address] GARCIA [address] Assigned PCP 09/29/20 07/31/22 Jesú[place] [address] [place] [facility] [place] [address] Assigned Musculoskeletal Provider 10/20/20 04/17/22 Alfreda Ray PA-C [address] [place] [address] [phone] Referring Physician Family Medicine 12/31/21 Katrin Orellana PA-C [address] [place] [address] Physician Hospital Housekeeper Dermatology 12/31/21 Shanna Vang PA-C [address] [place] [address] 330734 Assigned Cancer Care Provider 01/10/22 Fransisco Eddy MD [address] [place] [address] [id number] Assigned Rheumatology Provider 05/09/22 [place] [address] [address] GARCIA [address] Assigned Pain Medication Provider 06/29/22 09/04/22 [place] [address] [place] [address] Assigned PCP 08/15/22 08/28/22 Katrin Orellana PA-C [address] [place] [address] Assigned Surgical Provider 08/15/22 02/10/24 Cristina Hsieh [facility] [address] [facility] [place] [address] Pharmacist Pharmacist 09/07/22 Alfreda Ray PA-C [address] [place] [address] Assigned Pain Medication Provider 09/05/22 09/10/23 Alfreda Ray PA-C [address] [place] [address] 242562 Assigned PCP 08/29/22 Cristina Hsieh [facility] [address] [address] Assigned MTM Pharmacist 09/26/22 Dakota Tatum MD [address] [address] Cardiovascular Disease 03/25/23 Dakota Tatum MD Assigned Heart and Vascular Provider 05/01/23 11/09/24 [place] [address] [place] , [address] [address] Assigned Musculoskeletal Provider 04/12/24 Johanne Gutierrez RN RN Clinical Product Navigator Primary Care - CC 08/18/24 08/18/24 Linda Ambriz, [facility] Lead Public Health Analyst 08/18/24 08/23/24 documented as of this encounter
--- OUTSIDE RECORDS SUMMARY | 2025-02-24 20:56 | XMS_ITS | Encounter Summary ---
Author Organization [facility] Address [address] [place] [address] Care Team Providers Care Pneumatic Press Hand Name Role Phone Ajay Vick MD Primary Care Provider [phone] Esperanza Gatica MD Primary Care Provider + Esperanza Gatica MD Unavailable + Esperanza Gatica MD Unavailable + Esperanza Gatica MD Unavailable + Esperanza Gatica MD Unavailable +[phone] Esperanza Gatica MD Unavailable + Esperanza Gatica MD Unavailable +[phone] Jesús Orourke MD Unavailable Alfreda RayC Primary Care Provider + Alfreda Ray-Gallito Unavailable +[phone] Katrin Orellana PA-C Unavailable +[phone] Shanna Vang-C Unavailable +[phone] Fransisco Eddy MD Unavailable +[phone] Esperanza Gatica MD Unavailable +[phone] Esperanza Gatica MD Unavailable +[phone] Katrin Orellana PA-C Unavailable Cristina Hsieh [facility] Unavailable +[phone] Ray, Alfreda Liu PA-C Unavailable +[phone] Cory Alfreda Liu PA-C Unavailable +[phone] Cristina Hsieh [facility] Unavailable +[phone] Dakota Tatum MD Unavailable Unava ilable Dakota Tatum MD Unavailable Unava ilable Cynthia Srinivas Unavailable +[phone] Johanne Gutierrez RN Unavailable +[phone] [facility] Unavailable +[phone] Reason for Visit * Reason Onset Date Comments Refill Request 09/07/2011 Encounter Details Date Type Department Care Team (Late st Contact Info) Description 09/07/2011 MyC Refill [address] [address] Ajay Vick MD [address] [facility] [place]Z [address] Refill Request Social History Tobacco Use Types Packs/Day Years Used Date Smoking Tobacco: Former Cigarettes Q uit: 06/21/1973 Smokeless Tobacco: Former Alcohol Use Standard Drinks/Week Comments Yes 0 (1 standard drink = 0.6 oz pur e alcohol) rarely Comments No Sex and Gender Information Value Date Recorded Sex Assigned at Female 08/17/2018 7:56 AM OIL FIELD EQUIPMENT MECHANIC SUPERVISOR Legal Sex Female 4:24 AM OIL FIELD EQUIPMENT MECHANIC SUPERVISOR Gender Identity Female 08/17/2018 7:56 AM OIL FIELD EQUIPMENT MECHANIC SUPERVISOR Sexual Orientation Straight 08/17/2018 7: 56 AM OIL FIELD EQUIPMENT MECHANIC SUPERVISOR documented as of this encounter Miscellaneous [...] Sosa - 09/08/2011 10:39 AM CDTMessage from [facility] Original authorizing provider: AJAY VICK MD Barbara J Pellicci would like a refill of the following medications: tramadol (ULTRAM) 50 MG tablet [AJAY VICK MD] Preferred pharmacy: [facility] Comment: documented in this encounter Plan of Treatment Upcoming Encounters Date Type Department Care Team (Late st Contact Info) Description 06/28/2025 3:00 PM OIL FIELD EQUIPMENT MECHANIC SUPERVISOR Office Visit [facility] Specialty [address] [address] Fransisco Eddy MD [address] [place] [address] documented as of this encounter Visit Diagnoses Diagnosis Knee pain Pain in joint, lower leg documented in this encounter Additional Health Concerns Infection Onset Date Last Indicated Resolved Time Rule Out COVID-19 05/08/2021 05/08/2021 05/09/2021 9:08 PM OIL FIELD EQUIPMENT MECHANIC SUPERVISOR documented as of this encounter Care Teams Pneumatic Press Hand Relationship Specialty Start Date End Date Ajay Vick MD PCP - General Family Practice 01/29/11 10/12/11 Esperanza Gatica MD PCP - General Family Practice 10/13/11 12/29/21 [place] [address] [place] [address] PCP - Assigned PCP 12/05/17 08/23/18 Alfreda Ray PA-C [address] [place] [address] PCP - General Family Medicine 12/30/21 [place] [address] [place] [address] Assigned PCP 12/05/17 09/30/19 [place] [address] [place] [address] Assigned PCP 10/01/19 03/02/20 [place] [address] [place] [address] Assigned PCP 03/03/20 05/25/20 [place] [address] [place] [address] Assigned PCP 05/26/20 09/28/20 [place] [address] [place] [address] Assigned PCP 09/29/20 07/31/22 [place] [address] [place] [place] [address] Assigned Musculoskeletal Provider 10/20/20 04/17/22 Alfreda Ray PA-C [address] [place] [address] Referring Physician Family Medicine 12/31/21 Katrin Orellana PA-C [address] [place] [address] Physician Pantry Cook Dermatology 12/31/21 Shanna Vang PA-C [address] [place] [address] [phone] Assigned Cancer Care Provider 01/10/22 Fransisco Eddy MD [address] [place] [address] 155855 Assigned Rheumatology Provider 05/09/22 [place] [address] [place] [address] Assigned Pain Medication Provider 06/29/22 09/04/22 [place] [address] [place] [address] Assigned PCP 08/15/22 08/28/22 Katrin Orellana PA-C [address] [place] [address] Assigned Surgical Provider 08/15/22 02/10/24 Cristina Hsieh [facility] [address] [place] [address] L[place]BETH HERNANDEZ [address] Pharmacist Pharmacist 09/07/22 Alfreda Ray PA-C [address] [place] [address] Assigned Pain Medication Provider 09/05/22 09/10/23 Alfreda Ray PA-C [address] [place] [address] Assigned PCP 08/29/22 Cristina Hsieh, [facility] [address] [address] Assigned MTM Pharmacist 09/26/22 Dakota Tatum MD [address] [address] Cardiovascular Disease 03/25/23 Dakota Tatum MD Assigned Heart and Vascular Provider 05/01/23 11/09/24 [place] [address] [place], [address] [address] Assigned Musculoskeletal Provider 04/12/24 Johanne Gutierrez, RN RN Clinical Product Navigator Primary Care - CC 08/18/24 08/18/24 Linda Ambriz, [facility] Lead Sap Portal Architect 08/18/24 08/23/24 documented as of this encounter
--- OUTSIDE RECORDS SUMMARY | 2025-02-24 20:56 | XMS_ITS | Encounter Summary ---
Author Organization [facility] Address [address] [place] [address] Care Team Providers Care Director Private Name Role Phone Esperanza Gatica MD Primary Care Provider + Esperanza Gatica MD Unavailable + Esperanza Gatica MD Unavailable + Esperanza Gatica MD Unavailable + Esperanza Gatica MD Unavailable + Esperanza Gatica MD Unavailable + Jesús Orourke MD Unavailable Alfreda Ray-C Primary Care Provider + Alfreda Ray-C Unavailable + [phone] Katrin OrellanaC Unavailable +[phone] Shanna Vang-C Unavailable +[phone] Fransisco Eddy MD Unavailable [phone] Esperanza Gatica MD Unavailable + Esperanza Gatica MD Unavailable + Katrin OrellanaC Unavailable +[phone] Cristina Hsieh [facility] Unavailable +60 Ray, Alfreda Liu PA-C Unavailable +[phone] Cory Alfreda Liu PA-C Unavailable +[phone] Cristina Hsieh [facility] Unavailable [phone] Dakota Tatum MD Unavailable Unava ilable Dakota Tatum MD Unavailable Unava ilable Srinivas Marie Unavailable +[phone] Johanne Gutierrez RN Unavailable [phone] Linda Ambriz COUNTERS[employer] Unavailable [phone] Encounter Details Date Type Department Care Team (Late st Contact Info) Description 07/03/2019 MyC Medical Advice [address], [address] [place] [address] [place] [address] [place] [address] Social History Tobacco Use Types [...] Sex Assigned at Female 08/17/2018 7:56 AM WOODEN BOX MAKER Legal Sex Female 4:24 AM WOODEN BOX MAKER Gender Identity Female 08/17/2018 7:56 AM WOODEN BOX MAKER Sexual Orientation Straight 08/17/2018 7: 56 AM WOODEN BOX MAKER documented as of this encounter Plan of Treatment Upcoming Encounters Date Type Department Care Team (Late st Contact Info) Description 06/28/2025 3:00 PM WOODEN BOX MAKER Office Visit [address] [place] [address] Fransisco Eddy MD [address] [place] [address] documented as of this encounter Visit Diagnoses Not on filedocumented in this encounter Additional Health Concerns Infection Onset Date Last Indicated Resolved Time Rule Out COVID-19 05/08/2021 05/08/2021 05/09/2021 9:08 PM WOODEN BOX MAKER Assessment Noted Time PHQ-9 Depression Total Score: 1 08/20/19 19 1:44 PM WOODEN BOX MAKER documented as of this encounter Care Teams Director Private Relationship Specialty Start Date End Date Esperanza Gatica MD PCP - General Family Practice 10/13/11 12/29/21 Alfreda Ray PA-C [address] [place] [address] PCP - General Family Medicine 12/30/21 [place] [address] [place] GARCIA [address] Assigned PCP 12/05/17 09/30/19 [place] [address] [place] [address] Assigned PCP 10/01/19 03/02/20 [place] [address] [place]IA [address] Assigned PCP 03/03/20 05/25/20 [place] [address] [place] [address] Assigned PCP 05/26/20 09/28/20 [place] [address] [place] [address] Assigned PCP 09/29/20 07/31/22 Jesú[place] [address] [place] [address] [address] Assigned Musculoskeletal Provider 10/20/20 04/17/22 Alfreda Ray PA-C [address] [place] [address] Referring Physician Family Medicine 12/31/21 Katrin Orellana PA-C [address] [place] [address] Physician Banner Painter Dermatology 12/31/21 Shanna Vang PA-C [address] [place] [address] Assigned Cancer Care Provider 01/10/22 Fransisco Eddy MD [address] [place] [address] Assigned Rheumatology Provider 05/09/22 [place] [address] [place] [address] Assigned Pain Medication Provider 06/29/22 09/04/22 [place] [address] [place] [address] Assigned PCP 08/15/22 08/28/22 Katrin Orellana PA-C [address] [place] [address] Assigned Surgical Provider 08/15/22 02/10/24 Cristina Hsieh [facility] 3305 [facility] [place] [address] Pharmacist Pharmacist 09/07/22 Alfreda Ray PA-C [address] [place] [address] Assigned Pain Medication Provider 09/05/22 09/10/23 Alfreda Ray PA-C [address] [place] [address] 372312 Assigned PCP 08/29/22 Cristina Hsieh [facility] [address] [address] Assigned MTM Pharmacist 09/26/22 Dakota Tatum MD [address] [address] Cardiovascular Disease 03/25/23 Dakota Tatum MD Assigned Heart and Vascular Provider 05/01/23 11/09/24 [place] [address] [place] , [address] [address] Assigned Musculoskeletal Provider 04/12/24 Johanne Gutierrez, RN RN Clinical Product Navigator Primary Care - CC 08/18/24 08/18/24 Linda Ambriz, [facility] Lead Roughener 08/18/24 08/23/24 documented as of this encounter
--- OUTSIDE RECORDS SUMMARY | 2025-02-24 20:56 | XMS_ITS | Encounter Summary ---
Author Organization [place] Address [address] [place] [address] Care Team Providers Care Spreader Operator Automatic Name Role Phone Esperanza Gatica MD Primary Care Provider + Esperanza Gatica MD Unavailable + Esperanza Gatica MD Unavailable + Esperanza Gatica MD Unavailable + Esperanza Gatica MD Unavailable + Esperanza Gatica MD Unavailable + Jesús Orourke MD Unavailable Alfreda Ray-C Primary Care Provider + Alfreda Ray-C Unavailable + [phone] Katrin OrellanaC Unavailable +[phone] Shanna Vang-C Unavailable +[phone] Fransisco Eddy MD Unavailable [phone] Esperanza Gatica MD Unavailable + Esperanza Gatica MD Unavailable + Katrin OrellanaC Unavailable +[phone] Cristina Hsieh [facility] Unavailable +60 Ray, Alfreda Liu PA-C Unavailable +[phone] Cory Alfreda Liu PA-C Unavailable +[phone] Cristina Hsieh [facility] Unavailable +[phone] Dakota Tatum MD Unavailable Unava ilable Dakota Tatum MD Unavailable Unava ilable Srinivas Marie Unavailable [phone] Johanne Gutierrez RN Unavailable [phone] Linda Ambriz [facility] Unavailable +[phone] Reason for Visit * Reason Onset Date Comments Medication Refill 02/21/2019 atenolol (TENO RMIN) 25 MG tablet Encounter Details Date Type Department Care Team (Late st Contact Info) Description 02/18/[address], [address] [place] [address] [place] [address] [place] [address] Medication Refill (atenolol (TENORMIN) 25 [...] Assigned at Female 08/17/2018 7:56 AM PIPE OUT WORKER Legal Sex Female 4:24 AM PIPE OUT WORKER Gender Identity Female 08/17/2018 7:56 AM PIPE OUT WORKER Sexual Orientation Straight 08/17/2018 7: 56 AM PIPE OUT WORKER documented as of this encounter Miscellaneous Notes * Telephone Encounter - Yamile Otero RN - 02/22/2019 9:45 AM CDT Images from the original note were not included. Provider filled on 02/21/2019 Vandana Otero, TIFFANIE Patient Care Calender Worker Helper [facility] [phone] * Telephone Encounter - Diya Stone - [...] CDT Office Visit with Esperanza Gatica MD [facility] [address] [place] [address], [address] [facility] [address] Beta-Blockers Protocol Passed - 02/18/2019 [...] st Contact Info) Description 06/28/2025 3:00 PM PIPE OUT WORKER Office Visit [address] [address] Fransisco Eddy MD [address] [place] [address] 036805 documented as of this encounter Visit Diagnoses Diagnosis HTN, goal below 140/90 Unspecified essential hypertension documented in this encounter Additional Health Concerns Infection Onset Date Last Indicated Resolved Time Rule Out COVID-19 05/08/2021 05/08/2021 05/09/2021 9:08 PM PIPE OUT WORKER Assessment Noted Time PHQ-9 Depression Total Score: 1 08/20/19 19 1:44 PM PIPE OUT WORKER documented as of this encounter Care Teams Spreader Operator Automatic Relationship Specialty Start Date End Date Esperanza Gatica MD PCP - General Family Practice 10/13/11 12/29/21 Alfreda Ray PA-C [address] [place] [address] 228452 PCP - General Family Medicine 12/30/21 [place] [address] [place]ARCIA [address] Assigned PCP 12/05/17 09/30/19 [place] [address] [place] [place] [address] Assigned PCP 10/01/19 03/02/20 [place] [address] [place] [place] [address] Assigned PCP 03/03/20 05/25/20 [place] [address] [place] [address] Assigned PCP 05/26/20 09/28/20 [place] [address] [place] [address] Assigned PCP 09/29/20 07/31/22 Jesú[place] [address] [facility] [place], [place] [address] Assigned Musculoskeletal Provider 10/20/20 04/17/22 Alfreda Ray PA-C [address] [place] [address] 115252 Referring Physician Family Medicine 12/31/21 Katrin Orellana PA-C [address] [place] [address] Physician Automatic Packer Operator Dermatology 12/31/21 Shanna Vang PA-C [address] [place] [address] 491484 Assigned Cancer Care Provider 01/10/22 Fransisco Eddy MD [address] [place] [address] 822655 Assigned Rheumatology Provider 05/09/22 [place] [address] [place] [address] Assigned Pain Medication Provider 06/29/22 09/04/22 [place] [address] [place] [address] Assigned PCP 08/15/22 08/28/22 Katrin Orellana PA-C [address] [place] [address] Assigned Surgical Provider 08/15/22 02/10/24 Cristina Hsieh [facility] [address] [facility] [place] [address] Pharmacist Pharmacist 09/07/22 Alfreda Ray PA-C [address] [place] [address] 294002 Assigned Pain Medication Provider 09/05/22 09/10/23 Alfreda Ray PA-C [address] [place] [address] 504112 Assigned PCP 08/29/22 Cristina Hsieh [facility] [address] [address] Assigned MTM Pharmacist 09/26/22 Dakota Tatum MD [address] [address] Cardiovascular Disease 03/25/23 Dakota Tatum MD Assigned Heart and Vascular Provider 05/01/23 11/09/24 [place] [address] [address] [address] Assigned Musculoskeletal Provider 04/12/24 Johanne Gutierrez RN RN Clinical Product Navigator Primary Care - CC 08/18/24 08/18/24 Linda Ambriz, [facility] Lead Pilot Teacher 08/18/24 08/23/24 documented as of this encounter
--- OUTSIDE RECORDS SUMMARY | 2025-02-24 20:56 | XMS_ITS | Encounter Summary ---
Author Organization [facility] Address [address] [place] [address] Care Team Providers Care Warehouseman Name Role Phone Esperanza Gatica MD Primary Care Provider + Esperanza Gatica MD Unavailable + Esperanza Gatica MD Unavailable + Esperanza Gatica MD Unavailable + Esperanza Gatica MD Unavailable + Esperanza Gatica MD Unavailable + Jesús Orourke MD Unavailable Alfreda Ray-C Primary Care Provider + Alfreda Ray-C Unavailable + [phone] Katrin OrellanaC Unavailable +[phone] Shanna Vang-C Unavailable +[phone] Fransisco Eddy MD Unavailable +[phone] Esperanza Gatica MD Unavailable + Esperanza Gatica MD Unavailable + Katrin OrellanaC Unavailable +[phone] Cristina Hsieh [facility] Unavailable +60 Alfreda Ray PA-C Unavailable +[phone] Alfreda Ray PA-C Unavailable +[phone] Cristina Hsieh [facility] Unavailable +[phone] Dakota Tatum MD Unavailable Unava ilable Dakota Tatum MD Unavailable Unava ilable Srinivas Marie DO Unavailable [phone] Johanne Gutierrez RN Unavailable +[phone] [facility] Unavailable +[phone] Reason for Referral * Consultation (Routine) - Closed Specialty Diagnoses / Procedures Referred By Sharlene kessler Referred To Contact Diagnoses Dysfunction of Eustachian tube, unspecified laterality Esperanza Gatica MD Phone: tel: fax: [facility] [address] [place] [address], [address] [place] [address] Phone: tel: Referral ID Status Reason Start Date Expiration Date Visits Re quested Visits Authorized [id number] Closed 04/13/2019 04/12/2020 1 1 Comments Your provider has referred you to: N: [facility] [email or web address] Please be aware that coverage of these services is subject to the terms and limitations of your health insurance plan. Call member services at your health plan with any benefit or coverage questions. Please bring the following with you to your appointment: (1) Any X-Rays, CTs or MRIs which have been performed. Contact the facility where they were done to arrange for supervisor opening and picking prior to your scheduled appointment. (2) List of current medications (3) This referral request (4) Any documents/labs given to you for this referral Reason for Visit * Reason Onset Date Comments Referral 04/13/2019 ENT Encounter Details Date Type Department Care Team (Late st Contact Info) Description 04/13/2019 MyC Medical Advice [place] [address] [facility], [address] [place] [address] [place] [address] [place] [address] Referral (ENT) Social History Tobacco Use Types [...] CDT I can refer her to the [facility] or choose a ENT in the network, but not in [place]. I placed the a referral to the local ent for now. Let me know if she wants to change documented in this encounter Plan of Treatment Upcoming Encounters Date Type Department Care Team (Late st Contact Info) Description 06/28/2025 3:00 PM VET TECH Office Visit [facility] [address] [place] [address] Fransisco Eddy MD [address] [place] [address] [phone] Scheduled Referrals Name Type Priority Associated Diagnoses Orde r Schedule OTOLARYNGOLOGY REFERRAL Referral Routine Dysfunction of Eustachian tube, unspecified laterality Ordered: 04/13/2019 documented as of this encounter Visit Diagnoses Diagnosis Dysfunction of Eustachian tube, unspecified laterality- Primary documented in this encounter Additional Health Concerns Infection Onset Date Last Indicated Resolved Time Rule Out COVID-19 05/08/2021 05/08/2021 05/09/2021 9:08 PM VET TECH Assessment Noted Time PHQ-9 Depression Total Score: 1 08/20/19 19 1:44 PM VET TECH documented as of this encounter Care Teams Warehouseman Relationship Specialty Start Date End Date Esperanza Gatica MD PCP - General Family Practice 10/13/11 12/29/21 Alfreda Ray PA-C [address] [place] [address] PCP - General Family Medicine 12/30/21 [place] [address] [place] [address] Assigned PCP 12/05/17 09/30/19 [place] [address] [place] [address] Assigned PCP 10/01/19 03/02/20 [place] [address] [place] [address] Assigned PCP 03/03/20 05/25/20 [place] [address] [address] [place] [address] Assigned PCP 05/26/20 09/28/20 [place] [address] [place] [address] Assigned PCP 09/29/20 07/31/22 [place] [address] [address] Assigned Musculoskeletal Provider 10/20/20 04/17/22 Alfreda Ray PA-C [address] [place] [address] 584392 Referring Physician Family Medicine 12/31/21 Katrin Orellana PA-C [address] [place] [address] 023405 Physician Tools Programmer Dermatology 12/31/21 Shanna Vang PA-C [address] [place] [address] 990234 Assigned Cancer Care Provider 01/10/22 Fransisco Eddy MD [address] [place] [address] 903725 Assigned Rheumatology Provider 05/09/22 [place] [address] [place] [address] Assigned Pain Medication Provider 06/29/22 09/04/22 [place] [address] [place] [address] Assigned PCP 08/15/22 08/28/22 Katrin Orellana PA-C [address] [address] Assigned Surgical Provider 08/15/22 02/10/24 Cristina Hsieh [facility] [address] [facility] [place] [address] Pharmacist Pharmacist 09/07/22 Alfreda Ray PA-C [address] [place] [address] 986072 Assigned Pain Medication Provider 09/05/22 09/10/23 Alfreda Ray PA-C [address] [place] [address] 079712 Assigned PCP 08/29/22 Cristina Hsieh [facility] [address] [address] Assigned MTM Pharmacist 09/26/22 Dakota Tatum MD [address] [address] Cardiovascular Disease 03/25/23 Dakota Tatum MD Assigned Heart and Vascular Provider 05/01/23 11/09/24 [place] [address] [address], [address] [address] Assigned Musculoskeletal Provider 04/12/24 Johanne Gutierrez RN RN Clinical Product Navigator Primary Care - CC 08/18/24 08/18/24 Linda Ambriz, [facility] Lead Aprn 08/18/24 08/23/24 documented as of this encounter
--- OUTSIDE RECORDS SUMMARY | 2025-02-24 20:56 | XMS_ITS | Encounter Summary ---
Author Organization [facility] Address [address] [place] [address] Care Team Providers Care Pedicurist Name Role Phone Espernaza Gatica MD Primary Care Provider + Esperanza Gatica MD Unavailable + Esperanza Gatica MD Unavailable + Esperanza Gatica MD Unavailable + Esperanza Gatica MD Unavailable + Esperanza Gatica MD Unavailable + Jesús Orourke MD Unavailable Alfreda Ray-C Primary Care Provider + Alfreda Ray-C Unavailable + [phone] Katrin OrellanaC Unavailable +[phone] Shanna Vnag-C Unavailable +[phone] Fransisco Eddy MD Unavailable +[phone] Esperanza Gatica MD Unavailable + Esperanza Gatica MD Unavailable + Katrin OrellanaC Unavailable +[phone] Cristina Hsieh [facility] Unavailable +[phone] Ray, Alfreda Liu PA-C Unavailable +[phone] Cory Alfreda Liu PA-C Unavailable +[phone] Cristina Hsieh Martin [facility] Unavailable +[phone] Dakota Tatum MD Unavailable Unava ilable Dakota Tatum MD Unavailable Unava ilable Srinivas Marie Unavailable +[phone] Johanne Gutierrez RN Unavailable +[phone] Linda Ambriz DEPUTY CLERK OF SUPERIOR COURT Unavailable +[phone] Encounter Details Date Type Department Care Team (Late st Contact Info) Description 08/01/2019 MyC Medical Advice [address], [address] [place] [address] Chitra López Social History Tobacco [...] Sex Assigned at Female 08/17/2018 7:56 AM ROTARY FURNACE OPERATOR Legal Sex Female 4:24 AM ROTARY FURNACE OPERATOR Gender Identity Female 08/17/2018 7:56 AM ROTARY FURNACE OPERATOR Sexual Orientation Straight 08/17/2018 7: 56 AM ROTARY FURNACE OPERATOR documented as of this encounter Plan of Treatment Upcoming Encounters Date Type Department Care Team (Late st Contact Info) Description 06/28/2025 3:00 PM ROTARY FURNACE OPERATOR Office Visit [address] [address] Fransisco Eddy MD [address] [place] [address] documented as of this encounter Visit Diagnoses Not on filedocumented in this encounter Additional Health Concerns Infection Onset Date Last Indicated Resolved Time Rule Out COVID-19 05/08/2021 05/08/2021 05/09/2021 9:08 PM ROTARY FURNACE OPERATOR Assessment Noted Time PHQ-9 Depression Total Score: 1 08/20/19 19 1:44 PM ROTARY FURNACE OPERATOR documented as of this encounter Care Teams Pedicurist Relationship Specialty Start Date End Date Esperanza Gatica MD PCP - General Family Practice 10/13/11 12/29/21 Alfreda Ray PA-C [address] [place] [address] PCP - General Family Medicine 12/30/21 [place] [address] [place] [address] Assigned PCP 12/05/17 09/30/19 [place] [address] [place] [address] Assigned PCP 10/01/19 03/02/20 [place] [address] [place] [address] Assigned PCP 03/03/20 05/25/20 [place] [address] [place] [address] Assigned PCP 05/26/20 09/28/20 [place] [address] [place] [address] Assigned PCP 09/29/20 07/31/22 Jesú[place] [address] [place] [address] [address] Assigned Musculoskeletal Provider 10/20/20 04/17/22 Alfreda Ray PA-C [address] [place] [address] 246882 Referring Physician Family Medicine 12/31/21 Katrin Orellana PA-C [address] [place] [address] 939225 Physician Malthouse Laborer Dermatology 12/31/21 Shanna Vang PA-C [address] [place] [address] 384094 Assigned Cancer Care Provider 01/10/22 Fransisco Eddy MD [address] [place] [address] 467385 Assigned Rheumatology Provider 05/09/22 [place] [address] [place]ARCIA [address] Assigned Pain Medication Provider 06/29/22 09/04/22 [place] [address] [address] [address] Assigned PCP 08/15/22 08/28/22 Katrin Orellana PA-C [address] [place] [address] 565055 Assigned Surgical Provider 08/15/22 02/10/24 Cristina Hsieh, [facility] [address] [facility] [place] HERNANDEZ [address] Pharmacist Pharmacist 09/07/22 Alfreda Ray PA-C [address] [place] [address] [phone] Assigned Pain Medication Provider 09/05/22 09/10/23 Alfreda Ray PA-C [address] [place] [address] 301992 Assigned PCP 08/29/22 Cristina Hsieh, [facility] [address] [address] Assigned MTM Pharmacist 09/26/22 Dakota Tatum MD [address] [address] Cardiovascular Disease 03/25/23 Dakota Tatum MD Assigned Heart and Vascular Provider 05/01/23 11/09/24 [place] [address] [place], [address] [address] Assigned Musculoskeletal Provider 04/12/24 Johanne Gutierrez, RN RN Clinical Product Navigator Primary Care - CC 08/18/24 08/18/24 Linda Ambriz, [facility] Lead Vp Digital Marketing Social Media And Crm 08/18/24 08/23/24 documented as of this encounter
--- OUTSIDE RECORDS SUMMARY | 2025-02-24 20:56 | XMS_ITS | Encounter Summary ---
Author Organization [facility] Address [address] [place] [address] Care Team Providers Care Media Strategist Name Role Phone Esperanza Gatica MD Primary Care Provider + Esperanza Gatica MD Unavailable +[phone] Esperanza Gatica MD Unavailable +[phone] Esperanza Gatica MD Unavailable +[phone] Esperanza Gatica MD Unavailable +[phone] Esperanza Gatica MD Unavailable +[phone] Esperanza Gatica MD Unavailable +[phone] Jesús Orourke MD Unavailable Alfreda RayC Primary Care Provider + Alfreda Ray PA-C Unavailable +- [phone] Katrin Orellana PA-C Unavailable +[phone] Shanna VangC Unavailable +[phone] Fransisco Eddy MD Unavailable +[phone] Esperanza Gatica MD Unavailable +[phone] Esperanza Gatica MD Unavailable +[phone] Katrin Orellana PA-C Unavailable Cristina Hsieh [facility] Unavailable +[phone] Alfreda Ray PA-C Unavailable +[phone] Cory Alfreda Liu PA-C Unavailable +[phone] Cristina Hsieh [facility] Unavailable +[phone] Dakota Tatum MD Unavailable Unava ilable Dakota Tatum MD Unavailable Unava ilable Srinivas Marie Unavailable +[phone] Brenda Johanne Salome MORENO Unavailable +[phone] Linda Ambriz Gallito [facility] Unavailable +[phone] Reason for Visit * Reason Onset Date Comments Refill Request 01/19/2012 Ambien Encounter Details Date Type Department Care Team (Late st Contact Info) Description 01/19/2012 MyC Refill [address] [address] [place] [address] [place], [place] [phone] Refill Request (Chintan) Social History Tobacco Use Types Packs/Day Years Used Date Smoking Tobacco: Former Cigarettes Q uit: 06/21/1973 Smokeless Tobacco: Former Alcohol Use Standard Drinks/Week Comments Yes 0 (1 standard drink = 0.6 oz pur e alcohol) rarely Comments No Sex and Gender Information Value Date Recorded Sex Assigned at Female 08/17/2018 7:56 AM CLINIC PHYSICIAN Legal Sex Female 4:24 AM CLINIC PHYSICIAN Gender Identity Female 08/17/2018 7:56 AM CLINIC PHYSICIAN Sexual Orientation Straight 08/17/2018 7: 56 AM CLINIC PHYSICIAN documented as of this encounter Miscellaneous Notes [...] MG tablet [Esperanza Gatica MD] Preferred pharmacy: [facility] Comment: Sent from my iPhone documented in this encounter Plan of Treatment Upcoming Encounters Date Type Department Care Team (Late st Contact Info) Description 06/28/2025 3:00 PM CLINIC PHYSICIAN Office Visit [facility] [address] [address] Fransisco Eddy MD [address] [place] [address] [phone] documented as of this encounter Visit Diagnoses Diagnosis Insomnia, unspecified documented in this encounter Additional Health Concerns Infection Onset Date Last Indicated Resolved Time Rule Out COVID-19 05/08/2021 05/08/2021 05/09/2021 9:08 PM CLINIC PHYSICIAN documented as of this encounter Care Teams Media Strategist Relationship Specialty Start Date End Date Esperanza Gatica MD PCP - General Family Practice 10/13/11 12/29/21 [place] [address] [place] [address] PCP - Assigned PCP 12/05/17 08/23/18 Alfreda Ray PA-C [address] [place] [address] PCP - General Family Medicine 12/30/21 [place] [address] [place] [address] Assigned PCP 12/05/17 09/30/19 [place] [address] [place] [address] Assigned PCP 10/01/19 03/02/20 [place] [address] [place] [address] Assigned PCP 03/03/20 05/25/20 [place] [address] [place] [address] Assigned PCP 05/26/20 09/28/20 [place] [address] [place] [address] Assigned PCP 09/29/20 07/31/22 Jesú[place] [address] [place] [address] Assigned Musculoskeletal Provider 10/20/20 04/17/22 Alfreda Ray PA-C [address] [place] [address] 889552 Referring Physician Family Medicine 12/31/21 Katrin Orellana PA-C [address] [place] [address] Physician Plater Apprentice Dermatology 12/31/21 BernShanna Amos PA-C [address] [place] [address] Assigned Cancer Care Provider 01/10/22 Fransisco Eddy MD [address] [place] [address] [address] [place] [address] Assigned Rheumatology Provider 05/09/22 [place] [address] [place] [address] Assigned Pain Medication Provider 06/29/22 09/04/22 [place] [address] [place] [address] Assigned PCP 08/15/22 08/28/22 Katrin Orellana PA-C [address] [place] [address] 98 [place] [address] Assigned Surgical Provider 08/15/22 02/10/24 Cristina Hsieh [facility] [address] [facility] [place] [address] Pharmacist Pharmacist 09/07/22 Alfreda Ray PA-C [address] [place] [address] 535862 Assigned Pain Medication Provider 09/05/22 09/10/23 Alfreda Ray PA-C [address] [place] [address] Assigned PCP 08/29/22 Cristina Hsieh, [facility] [address] [address] Assigned MTM Pharmacist 09/26/22 Dakota Tatum MD [address] [address] Cardiovascular Disease 03/25/23 Dakota Tatum MD Assigned Heart and Vascular Provider 05/01/23 11/09/24 [place] [address] [place] [address] , [address] [address] Assigned Musculoskeletal Provider 04/12/24 Johanne Gutierrez RN TIFFANIE Clinical Product Navigator Primary Care - CC 08/18/24 08/18/24 Linda Ambriz, [facility] Lead Trailer Chief 08/18/24 08/23/24 documented as of this encounter
--- OUTSIDE RECORDS SUMMARY | 2025-02-24 20:56 | XMS_ITS | Encounter Summary ---
Author Organization [facility] Address [address] [place] [address] Care Team Providers Care Director Of Community Education Name Role Phone Esperanza Gatica MD Primary Care Provider + Esperanza Gatica MD Unavailable + Esperanza Gatica MD Unavailable + Esperanza Gatica MD Unavailable + Esperanza Gatica MD Unavailable + Esperanza Gatica MD Unavailable + Jesús Orourke MD Unavailable Alfreda Ray-C Primary Care Provider + Alfreda Ray-C Unavailable + [phone] Katrin OrellanaC Unavailable +[phone] Shanna Vang-C Unavailable +[phone] Fransisco Eddy MD Unavailable +[phone] Esperanza Gatica MD Unavailable + Esperanza Gatica MD Unavailable + Katrin OrellanaC Unavailable +[phone] Cristina Hsieh [facility] Unavailable +60 Alfreda Ray PA-C Unavailable +[phone] Cory Alfreda Liu PA-C Unavailable +[phone] Cristina Hsieh [facility] Unavailable +[phone] Dakota Tatum MD Unavailable Unava ilable Dakota Tatum MD Unavailable Unava ilable Srinivas Marie Unavailable +[phone] Johanne Gutierrez RN Unavailable +[phone] Linda Ambriz GOLF MANAGER Unavailable + [phone] Encounter Details Date Type Department Care Team (Late st Contact Info) Description 07/26/2019 MyC Medical Advice [address], [address] [place] [address] [place] [address] [place] [address] Social History Tobacco Use Types [...] Sex Assigned at Female 08/17/2018 7:56 AM DOUGHNUT DOUGH MIXER Legal Sex Female 4:24 AM DOUGHNUT DOUGH MIXER Gender Identity Female 08/17/2018 7:56 AM DOUGHNUT DOUGH MIXER Sexual Orientation Straight 08/17/2018 7: 56 AM DOUGHNUT DOUGH MIXER documented as of this encounter Miscellaneous Notes * Telephone Encounter - Claudia Stoll RN - 07/26/2019 1:20 PM DOUGHNUT DOUGH MIXER temazepam (RESTORIL) 7.5 MG capsule 90 capsule 0 06/02/2019 No Sig - Route: Take 1 capsule (7.5 mg) by mouth At Bedtime - Oral Sent to pharmacy as: temazepam (RESTORIL) 7.5 MG capsule Class: E-Prescribe Order: [id number] E-Prescribing Status: Receipt confirmed by pharmacy (06/02/2019 ??3:54 PM DOUGHNUT DOUGH MIXER) Claudia Stoll RN Flex HNUT DOUGH MIXER documented in this encounter Plan of Treatment Upcoming Encounters Date Type Department Care Team (Late st Contact Info) Description 06/28/2025 3:00 PM DOUGHNUT DOUGH MIXER Office Visit [facility] [address] [place] [phone] Fransisco Eddy MD [address] [place] [address] [phone] documented as of this encounter Visit Diagnoses Not on filedocumented in this encounter Additional Health Concerns Infection Onset Date Last Indicated Resolved Time Rule Out COVID-19 05/08/2021 05/08/2021 05/09/2021 9:08 PM DOUGHNUT DOUGH MIXER Assessment Noted Time PHQ-9 Depression Total Score: 1 08/20/19 19 1:44 PM DOUGHNUT DOUGH MIXER documented as of this encounter Care Teams Director Of Community Education Relationship Specialty Start Date End Date Esperanza Gatica MD PCP - General Family Practice 10/13/11 12/29/21 Alfreda Ray PA-C [address] [place] [address] PCP - General Family Medicine 12/30/21 [place] [address] [place] [address] Assigned PCP 12/05/17 09/30/19 [place] [address] [place] [place] [address] Assigned PCP 10/01/19 03/02/20 [place] [address] [place] [address] Assigned PCP 03/03/20 05/25/20 [place] [address] [place] [address] Assigned PCP 05/26/20 09/28/20 [place] [address] [place] [address] Assigned PCP 09/29/20 07/31/22 Jesú[place] [address] [place], [place] 475747 Assigned Musculoskeletal Provider 10/20/20 04/17/22 Alfreda Ray PA-C [address] [place] [address] 845812 Referring Physician Family Medicine 12/31/21 Katrin Orellana PA-C [address] [place] [address] [phone] Physician Public Health Service Officer Dermatology 12/31/21 Shanna Vang PA-C [address] [place] [address] [phone] Assigned Cancer Care Provider 01/10/22 Fransisco Eddy MD [address] [place] [address] 489735 Assigned Rheumatology Provider 05/09/22 [place] [address] [place] [address] Assigned Pain Medication Provider 06/29/22 09/04/22 [place] [address] [place] [address] Assigned PCP 08/15/22 08/28/22 Katrin Orellana PA-C [address] [place] [address] Assigned Surgical Provider 08/15/22 02/10/24 Cristina Hsieh [facility] [address] [place] [address] [place] [address] Pharmacist Pharmacist 09/07/22 Alfreda Ray PA-C [address] [place] [address] Assigned Pain Medication Provider 09/05/22 09/10/23 Alfreda Ray PA-C [address] [place] [address] Assigned PCP 08/29/22 Cristina Hsieh [facility] [address] [address] Assigned MTM Pharmacist 09/26/22 Dakota Tatum MD [address] [address] Cardiovascular Disease 03/25/23 Dakota Tautm MD Assigned Heart and Vascular Provider 05/01/23 11/09/24 [place] [address] CELE GAST[address]UM, [address] [address] Assigned Musculoskeletal Provider 04/12/24 Johanne Gutierrez RN TIFFANIE Clinical Product Navigator Primary Care - CC 08/18/24 08/18/24 Linda Ambriz, [facility] Lead Agricultural Commodities Grader 08/18/24 08/23/24 documented as of this encounter
--- OUTSIDE RECORDS SUMMARY | 2025-02-24 20:56 | XMS_ITS | Encounter Summary ---
Author Organization [facility] Address [address] [place] [address] Care Team Providers Care Computer Systems Design Analyst Name Role Phone Esperanza Gatica MD Primary Care Provider + Esperanza Gatica MD Unavailable +[phone] Esperanza Gatica MD Unavailable +[phone] Esperanza Gatica MD Unavailable +755 Esperanza Gatica MD Unavailable +154 Esperanza Gatica MD Unavailable +[phone] Esperanza Gatica MD Unavailable +[phone] Jesús Orourke MD Unavailable Alfreda RayC Primary Care Provider + Alfreda Ray PA-C Unavailable +- [phone] Katrin Orellana PA-C Unavailable +[phone] Shanna VangC Unavailable +[phone] Fransisco Eddy MD Unavailable +[phone] Esperanza Gatica MD Unavailable +[phone] Esperanza Gatica MD Unavailable +[phone] Katrin Orellana PA-C Unavailable Cristina Hsieh [facility] Unavailable +[phone] Cory Alfreda Liu PA-C Unavailable +[phone] Alfreda Ray Alexa KING Unavailable +[phone] Cristina Hsieh [facility] Unavailable +[phone] Dakota Tatum MD Unavailable Unava ilable Dakota Tatum MD Unavailable Unava ilable Srinivas Marie Unavailable +[phone] BrendaJohanne rajput Salome RN Unavailable +[phone] Linda Ambriz Gallito [facility] Unavailable +[phone] Reason for Visit * Reason Onset Date Comments Refill Request 11/26/2011 vicodin Encounter Details Date Type Department Care Team (Late st Contact Info) Description 11/26/2011 MyC Refill [address], [address] [place] [address] [place] [address] [place] [address] Refill Request (vicodin) Social History Tobacco Use Types Packs/Day Years Used Date Smoking Tobacco: Former Cigarettes Q uit: 06/21/1973 Smokeless Tobacco: Former Alcohol Use Standard Drinks/Week Comments Yes 0 (1 standard drink = 0.6 oz pur e alcohol) rarely Comments No Sex and Gender Information Value Date Recorded Sex Assigned at Female 08/17/2018 7:56 AM COPPER PLATE LITHOGRAPHER Legal Sex Female 4:24 AM COPPER PLATE LITHOGRAPHER Gender Identity Female 08/17/2018 7:56 AM COPPER PLATE LITHOGRAPHER Sexual Orientation Straight 08/17/2018 7: 56 AM COPPER PLATE LITHOGRAPHER documented as of this encounter Miscellaneous Notes * Telephone Encounter - Kassandra David - 11/27/2011 10:43 AM CDT VICODIN Last OV: 10/13/11 Reason for visit: htn, hyperlipidemia Last fill date: 10/12/11 #30 0R Unable to fill per standing order routed to Dr. Gatica for approval. Kassandra David RN * Telephone Encounter - Kassandra David - 11/27/2011 10:38 AM [facility] Original authorizing provider: MD Alexandria Brannon Zenobia Leeann would like a refill of the following medications: HYDROcodone-acetaminophen (VICODIN) 5-500 MG per tablet [Esperanza Gatica MD] Preferred pharmacy: [facility] [place] Comment: documented in this encounter Plan of Treatment Upcoming Encounters Date Type Department Care Team (Late st Contact Info) Description 06/28/2025 3:00 PM COPPER PLATE LITHOGRAPHER [facility] Visit [facility] [address] [phone] Fransisco Eddy MD [address] [place] [address] 140855 documented as of this encounter Visit Diagnoses Diagnosis Osteoarthritis- Primary Osteoarthrosis, unspecified whether generalized or localized, unspecified site documented in this encounter Additional Health Concerns Infection Onset Date Last Indicated Resolved Time Rule Out COVID-19 05/08/2021 05/08/2021 05/09/2021 9:08 PM COPPER PLATE LITHOGRAPHER documented as of this encounter Care Teams Computer Systems Design Analyst Relationship Specialty Start Date End Date Esperanza Gatica MD PCP - General Family Practice 10/13/11 12/29/21 [place] [address] [place] [address] PCP - Assigned PCP 12/05/17 08/23/18 Alfreda Ray PA-C [address] [place] [address] 536192 PCP - General Family Medicine 12/30/21 [place] [address] [place] GARCIA [address] Assigned PCP 12/05/17 09/30/19 [place] [address] [address] [address] Assigned PCP 10/01/19 03/02/20 [place] [address] [address] [place] [address] Assigned PCP 03/03/20 05/25/20 [place] [address] [address] [place] [address] Assigned PCP 05/26/20 09/28/20 [place] [address] [address] [place] [address] Assigned PCP 09/29/20 07/31/22 [place] [address] [place] [address] Assigned Musculoskeletal Provider 10/20/20 04/17/22 Alfreda Ray PA-C [address] [place] [address] 069852 Referring Physician Family Medicine 12/31/21 Katrin Orellana PA-C [address] [place] [address] Physician Collet Gluer Dermatology 12/31/21 Shanna Vang PA-C [address] [place] [address] Assigned Cancer Care Provider 01/10/22 Fransisco Eddy MD [address] [place] [address] Assigned Rheumatology Provider 05/09/22 [place] [address] [place] [address] Assigned Pain Medication Provider 06/29/22 09/04/22 [place] [address] [place] [address] Assigned PCP 08/15/22 08/28/22 Katrin Orellana PA-C [address] [place] [address] Assigned Surgical Provider 08/15/22 02/10/24 Cristina Hsieh [facility] [address] [place] [address] LISBETH HERNANDEZ [address] Pharmacist Pharmacist 09/07/22 Alfreda Ray PA-C [address] [place] [address] Assigned Pain Medication Provider 09/05/22 09/10/23 Alfreda Ray PA-C [address] [place] [address] [place] [address] Assigned PCP 08/29/22 Cristina Hsieh, [facility] [address] [address] Assigned MTM Pharmacist 09/26/22 Dakota Tatum MD [address] [address] Cardiovascular Disease 03/25/23 Dakota Tatum MD Assigned Heart and Vascular Provider 05/01/23 11/09/24 [place] [address] [place] , [address] [address] Assigned Musculoskeletal Provider 04/12/24 Johanne Gutierrez, RN RN Clinical Product Navigator Primary Care - CC 08/18/24 08/18/24 Linda Ambriz, [facility] Lead Stripper And Printer 08/18/24 08/23/24 documented as of this encounter
--- OUTSIDE RECORDS SUMMARY | 2025-02-24 20:56 | XMS_ITS | Encounter Summary ---
Author Organization [facility] Address [address] [place] [address] Care Team Providers Care Community Resource Consultant Name Role Phone Kelly Haley MD Primary Care Provider + Kelly Haley MD Unavailable + Kelly Haley MD Unavailable + Kelly Haley MD Unavailable + Kelly Haley MD Unavailable + Kelly Haley MD Unavailable + Jesús Orourke MD Unavailable Alfreda Ray-C Primary Care Provider + Alfreda Ray-C Unavailable + [phone] Katrin OrellanaC Unavailable +[phone] Shanna Vang-C Unavailable +[phone] Fransisco Eddy MD Unavailable +[phone] Kelly Haley MD Unavailable + Kelly Haley MD Unavailable + Katrin OrellanaC Unavailable +[phone] Cristina Hsieh [facility] Unavailable +[phone] Ray, Alfreda Liu PA-C Unavailable +[phone] Cory Alfreda Liu PA-C Unavailable +[phone] Cristina Hsieh [facility] Unavailable +[phone] Dakota Tatum MD Unavailable Unava ilable Dakota Tatum MD Unavailable Unava ilable Srinivas Marie DO Unavailable +[phone] Johanne Gutierrez RN Unavailable +[phone] Linda Ambriz [facility] Unavailable +[phone] Reason for Visit * Reason Onset Date Comments Medication Refill 05/01/2019 traMADol (ULTR AM) 50 MG tablet Encounter Details Date Type Department Care Team (Late st Contact Info) Description 04/30/[address], [address] [place] [address] [place] [address] [place], [place] [id number] Medication Refill (traMADol (ULTRAM) 50 MG tablet) [...] Sex Assigned at Female 08/17/2018 7:56 AM POT FISHER Legal Sex Female 4:24 AM POT FISHER Gender Identity Female 08/17/2018 7:56 AM POT FISHER Sexual Orientation Straight 08/17/2018 7: 56 AM POT FISHER documented as of this encounter Miscellaneous Notes * Telephone Encounter - Leigha Rinaldi RN - 05/02/2019 8:40 AM CST Images from the original note were not included. NIGHT TIME BABYSITTER checked 05/02/2019: Leigha Gentry, RN FISHER * Telephone Encounter - Diya Stone - [...] Score(s): No flowsheet data found. ?? Last [facility] website verification: Done 03.16.18 Last Written Prescription Date: 04/05/19 Last Fill Quantity: 90, # refills: 0 THE MOST RECENT OFFICE VISIT MUST BE WITHIN THE PAST 3 MONTHS. AT LEAST ONE FACE TO FACE VISIT MUSTOCCUR EVERY 6 MONTHS. ADDITIONAL VISITS CAN BE VIRTUAL. (THIS STATEMENT SHOULD BE DELETED.) Last Office Visit with [facility] primary care provider: 02/21/2019 Future Office visit: [...] OXY13, PPX13, BUP13 Processing: Fax Rx to [facility] [email or web address] NIGHT TIME BABYSITTER checked in past 3 months? No, route to RN 06/17/18 FISHER documented in this encounter Plan of Treatment Upcoming Encounters Date Type Department Care Team (Late st Contact Info) Description 06/28/2025 3:00 PM POT FISHER Office Visit [facility] [address] [place] [phone] Fransisco Eddy MD [address] [place] [address] documented as of this encounter Visit Diagnoses Diagnosis Primary osteoarthritis involving multiple joints documented in this encounter Additional Health Concerns Infection Onset Date Last Indicated Resolved Time Rule Out COVID-19 05/08/2021 05/08/2021 05/09/2021 9:08 PM POT FISHER Assessment Noted Time PHQ-9 Depression Total Score: 1 08/20/19 1:44 PM POT FISHER documented as of this encounter Care Teams Community Resource Consultant Relationship Specialty Start Date End Date Kelly Haley MD PCP - General Family Practice 10/13/11 12/29/21 Alfreda Ray PA-C [address] [place] [address] PCP - General Family Medicine 12/30/21 [place] [address] [place] [address] Assigned PCP 12/05/17 09/30/19 [place] [address] [place] [address] Assigned PCP 10/01/19 03/02/20 [place] [address] [place] [address] Assigned PCP 03/03/20 05/25/20 [place] [address] [place] [address] Assigned PCP 05/26/20 09/28/20 [place] [address] [place] [address] Assigned PCP 09/29/20 07/31/22 Jesú[place] [address] [facility] [place], [place] 529577 Assigned Musculoskeletal Provider 10/20/20 04/17/22 Alfreda Ray PA-C [address] [place] [address] [id number] Referring Physician Family Medicine 12/31/21 Katrin Orellana PA-C [address] [place] [address] Physician Aboriginal Community Council Member Dermatology 12/31/21 Shanna Vang PA-C [address] [place] [address] [phone] Assigned Cancer Care Provider 01/10/22 Fransisco Eddy MD [address] [place] [address] [id number] Assigned Rheumatology Provider 05/09/22 [place] [address] [place] [address] Assigned Pain Medication Provider 06/29/22 09/04/22 [place] [address] [place] [address] Assigned PCP 08/15/22 08/28/22 Katrin Orellana PA-C [address] [place] [address] Assigned Surgical Provider 08/15/22 02/10/24 Cristina Hsieh [facility] [address] [place] [address] Pharmacist Pharmacist 09/07/22 Alfreda Ray PA-C [address] [place] [address] Assigned Pain Medication Provider 09/05/22 09/10/23 Alfreda Ray PA-C [address] [place] [address] 235852 Assigned PCP 08/29/22 Cristina Hsieh [facility] [address] [address] Assigned MTM Pharmacist 09/26/22 Dakota Tatum MD [address] [address] Cardiovascular Disease 03/25/23 Dakota Tatum MD Assigned Heart and Vascular Provider 05/01/23 11/09/24 [place] [address] [place] , [address] [address] Assigned Musculoskeletal Provider 04/12/24 Johanne Gutierrez RN RN Clinical Product Navigator Primary Care - CC 08/18/24 08/18/24 Linda Ambriz, [facility] Lead Xerox Machine Assembler 08/18/24 08/23/24 documented as of this encounter
--- OUTSIDE RECORDS SUMMARY | 2025-02-24 20:56 | XMS_ITS | Encounter Summary ---
Author Organization [facility] Address [address] [place] [address] Care Team Providers Care Mortgage Loan Specialist Name Role Phone Esperanza Gatica MD Primary Care Provider + Esperanza Gatica MD Unavailable + Esperanza Gatica MD Unavailable + Esperanza Gatica MD Unavailable + Esperanza Gatica MD Unavailable + Esperanza Gatica MD Unavailable + Jesús Orourke MD Unavailable Alfreda Ray-C Primary Care Provider + Alfreda Ray-C Unavailable + [phone] Katrin OrellanaC Unavailable +[phone] Shanna Vang-C Unavailable +[phone] Fransisco Eddy MD Unavailable [phone] Esperanza Gatica MD Unavailable + Esperanza Gatica MD Unavailable + Katrin OrellanaC Unavailable +[phone] Cristina Hsieh [facility] Unavailable +[phone] Ray, Alfreda Liu PA-C Unavailable +[phone] oCry Alfreda Liu PA-C Unavailable +[phone] Cristina Hsieh [facility] Unavailable +[phone] Dakota Tatum MD Unavailable Unava ilable Dakota Tatum MD Unavailable Unava ilable Srinivas Marie Unavailable +[phone] Johanne Gutierrez RN Unavailable [phone] Linda Ambriz DRILLING FOREMAN Unavailable [phone] Encounter Details Date Type Department Care Team (Late st Contact Info) Description 07/27/2019 MyC Medical Advice [address], [address] [place] [address] [place] [address] [place] [address] Social History Tobacco Use Types [...] Assigned at Female 08/17/2018 7:56 AM COMPUTER PROGRAMMING MANAGER Legal Sex Female 4:24 AM COMPUTER PROGRAMMING MANAGER Gender Identity Female 08/17/2018 7:56 AM COMPUTER PROGRAMMING MANAGER Sexual Orientation Straight 08/17/2018 7: 56 AM COMPUTER PROGRAMMING MANAGER documented as of this encounter Plan of Treatment Upcoming Encounters Date Type Department Care Team (Late st Contact Info) Description 06/28/2025 3:00 PM COMPUTER PROGRAMMING MANAGER Office Visit [address] [place] [address] Fransisco Eddy MD [address] [place] [address] documented as of this encounter Visit Diagnoses Not on filedocumented in this encounter Additional Health Concerns Infection Onset Date Last Indicated Resolved Time Rule Out COVID-19 05/08/2021 05/08/2021 05/09/2021 9:08 PM COMPUTER PROGRAMMING MANAGER Assessment Noted Time PHQ-9 Depression Total Score: 1 08/20/19 19 1:44 PM COMPUTER PROGRAMMING MANAGER documented as of this encounter Care Teams Mortgage Loan Specialist Relationship Specialty Start Date End Date Esperanza Gatica MD PCP - General Family Practice 10/13/11 12/29/21 Alfreda Ray PA-C [address] [place] [address] PCP - General Family Medicine 12/30/21 [place] [address] [place] [address] Assigned PCP 12/05/17 09/30/19 [place] [address] [place] [address] Assigned PCP 10/01/19 03/02/20 [place] [address] [place] [address] Assigned PCP 03/03/20 05/25/20 [place] [address] [place] [address] Assigned PCP 05/26/20 09/28/20 [place] [address] [place] [address] Assigned PCP 09/29/20 07/31/22 [place] [address] [place] [address] [address] Assigned Musculoskeletal Provider 10/20/20 04/17/22 Alfreda Ray PA-C [address] [place] [address] Referring Physician Family Medicine 12/31/21 Katrin Orellana PA-C [address] [place] [address] Physician Painter Chassis Dermatology 12/31/21 Shanna Vang PA-C [address] [place] [address] Assigned Cancer Care Provider 01/10/22 Fransisco Eddy MD [address] [place] [address] Assigned Rheumatology Provider 05/09/22 [place] [address] [place] [address] Assigned Pain Medication Provider 06/29/22 09/04/22 [place] [address] [place] [address] Assigned PCP 08/15/22 08/28/22 Katrin Orellana PA-C [address] [place] [address] Assigned Surgical Provider 08/15/22 02/10/24 Cristina Hsieh [facility] [address] [facility] [place] [address] Pharmacist Pharmacist 09/07/22 Alfreda Ray PA-C [address] [place] [address] Assigned Pain Medication Provider 09/05/22 09/10/23 Alfreda Ray PA-C [address] [place] [address] 233162 Assigned PCP 08/29/22 Cristina Hsieh [facility] [address] [address] Assigned MTM Pharmacist 09/26/22 Dakota Tatum MD [address] [address] Cardiovascular Disease 03/25/23 Dakota Tatum MD Assigned Heart and Vascular Provider 05/01/23 11/09/24 [place] [address] [place] , [address] [address] Assigned Musculoskeletal Provider 04/12/24 Johanne Gutierrez, RN RN Clinical Product Navigator Primary Care - CC 08/18/24 08/18/24 Linda Ambriz, [facility] Lead Freelance Court Reporter 08/18/24 08/23/24 documented as of this encounter
--- OUTSIDE RECORDS SUMMARY | 2025-02-24 20:56 | XMS_ITS | Encounter Summary ---
Author Organization [facility] Address [address] [place] [address] Care Team Providers Care Floor Covering Printer Name Role Phone Ajay Vick MD Primary Care Provider [phone] Esperanza Gatica MD Primary Care Provider + Esperanza Gatica MD Unavailable + Esperanza Gatica MD Unavailable + Esperanza Gatica MD Unavailable + Esperanza Gatica MD Unavailable +[phone] Esperanza Gatica MD Unavailable + Esperanza Gatica MD Unavailable +[phone] Jesús Orourke MD Unavailable Alfreda RayC Primary Care Provider + Alfreda Ray-Gallito Unavailable +[phone] Katrin Orellana PA-C Unavailable Shanna Vang-C Unavailable +[phone] Fransisco Eddy MD Unavailable +[phone] Esperanza Gatica MD Unavailable +[phone] Esperanza Gatica MD Unavailable +[phone] Katrin Orellana PA-C Unavailable Cristina Hsieh [facility] Unavailable +[phone] Ray, Alfreda iLu PA-C Unavailable +[phone] Cory Alfreda Liu PA-C Unavailable +[phone] Cristina Hsieh [facility] Unavailable +[phone] Dakota Tatum MD Unavailable Unava ilable Dakota Tatum MD Unavailable Unava ilable CynthiaSrinivas Unavailable +[phone] Johanne Gutierrez RN Unavailable +[phone] Linda AmbrizSW Unavailable +[phone] Reason for Visit * Reason Onset Date Comments Refill Request 07/23/2011 tramadol Encounter Details Date Type Department Care Team (Late st Contact Info) Description 07/23/2011 MyC Refill [address] [phone] Ajay Vick MD [address] [facility] [place] [address] Refill Request (tramadol) Social History Tobacco Use Types Packs/Day Years Used Date Smoking Tobacco: Former Cigarettes Q uit: 06/21/1973 Smokeless Tobacco: Former Alcohol Use Standard Drinks/Week Comments Yes 0 (1 standard drink = 0.6 oz pur e alcohol) rarely Comments No Sex and Gender Information Value Date Recorded Sex Assigned at Female 08/17/2018 7:56 AM SODA FOUNTAIN MANAGER Legal Sex Female 4:24 AM SODA FOUNTAIN MANAGER Gender Identity Female 08/17/2018 7:56 AM SODA FOUNTAIN MANAGER Sexual Orientation Straight 08/17/2018 7: 56 AM SODA FOUNTAIN MANAGER documented as of this encounter Miscellaneous Notes * Telephone Encounter - Sharon Sosa - 07/23/2011 9:04 AM CST Medication requested: Ultram 50 mg tabs Date of last office visit related to request: 03/31/11 Date last filled: 05/25/11 Qty #[id number] This is not a PSO medication, forwarded to provider for authorization. Michelle Sosa RN FOUNTAIN MANAGER * Telephone Encounter - Kassandra David - 07/23/2011 9:01 AM CST TRAMADOL Last OV: 03/31/11 Reason for visit: right knee pain Last fill date: 05/25/11 #90 Unable to fill per standing order routed to Dr. Vick for approval. Kassandra David RN FOUNTAIN MANAGER * Telephone Encounter - Kassandra David - 07/23/2011 8:56 AM [facility] Original authorizing provider: AJAY VICK MD Barbara J Pellicci would like a refill of the following medications: tramadol (ULTRAM) 50 MG tablet [AJAY VICK MD] Preferred pharmacy: [email or web address] Comment: FOUNTAIN MANAGER documented in this encounter Plan of Treatment Upcoming Encounters Date Type Department Care Team (Late st Contact Info) Description 06/28/2025 3:00 PM SODA FOUNTAIN MANAGER Office Visit [facility] [address] [address] Fransisco Eddy MD [address] [place] [address] documented as of this encounter Visit Diagnoses Diagnosis Knee pain Pain in joint, lower leg documented in this encounter Additional Health Concerns Infection Onset Date Last Indicated Resolved Time Rule Out COVID-19 05/08/2021 05/08/2021 05/09/2021 9:08 PM SODA FOUNTAIN MANAGER documented as of this encounter Care Teams Floor Covering Printer Relationship Specialty Start Date End Date Ajay Vick MD PCP - General Family Practice 01/29/11 10/12/11 Esperanza Gatica MD PCP - General Family Practice 10/13/11 12/29/21 [place] [address] [place] [address] PCP - Assigned PCP 12/05/17 08/23/18 Alfreda Ray PA-C [address] [place] [address] PCP - General Family Medicine 12/30/21 [place] [address] [place] [address] Assigned PCP 12/05/17 09/30/19 [place] [address] [place] [address] Assigned PCP 10/01/19 03/02/20 [place] [address] [place] [address] Assigned PCP 03/03/20 05/25/20 [place] [address] [place] [address] Assigned PCP 05/26/20 09/28/20 [place] [address] [place] [address] Assigned PCP 09/29/20 07/31/22 Jesú[place] [address] [place] [address] [address] Assigned Musculoskeletal Provider 10/20/20 04/17/22 Alfreda Ray PA-C [address] [place] [address] 401442 Referring Physician Family Medicine 12/31/21 Katrin Orellana PA-C [address] [place] [address] 174595 Physician National Guard Member Dermatology 12/31/21 Shanna Vang PA-C [address] [place] [address] 118274 Assigned Cancer Care Provider 01/10/22 Fransisco Eddy MD [address] [place] [address] 032075 Assigned Rheumatology Provider 05/09/22 [place] [address] [place] [address] Assigned Pain Medication Provider 06/29/22 09/04/22 [place] [address] [place] [address] Assigned PCP 08/15/22 08/28/22 Katrin Orellana PA-C [address] [place] [address] 044235 Assigned Surgical Provider 08/15/22 02/10/24 Cristina Hsieh, [facility] [address] [facility] [place] [address] Pharmacist Pharmacist 09/07/22 Alfreda Ray PA-C [address] [place] [address] 914632 Assigned Pain Medication Provider 09/05/22 09/10/23 Alfreda Ray PA-C [address] [place] [address] 922642 Assigned PCP 08/29/22 Cristina Hsieh, [facility] [address] [address] Assigned MTM Pharmacist 09/26/22 Dakota Tatum MD [address] [address] Cardiovascular Disease 03/25/23 Dakota Tatum MD Assigned Heart and Vascular Provider 05/01/23 11/09/24 [place] [address] [place], [address] [address] Assigned Musculoskeletal Provider 04/12/24 Johanne Gutierrez, RN RN Clinical Product Navigator Primary Care - CC 08/18/24 08/18/24 Linda Ambriz, [facility] Lead Application Support 08/18/24 08/23/24 documented as of this encounter
--- OUTSIDE RECORDS SUMMARY | 2025-02-24 20:56 | XMS_ITS | Encounter Summary ---
Author Organization [facility] Address [address] [place] [address] Care Team Providers Care Tube Heater Name Role Phone Alfa Marcelo MD Primary Care Provider Ajay Dailey MD Primary Care Provider [phone] Esperanza Gatica MD Primary Care Provider Esperanza Gatica MD Unavailable +[phone] Esperanza Gatica MD Unavailable +[phone] Esperanza Gatica MD Unavailable +[phone] Esperanza Gatica MD Unavailable +[phone] Esperanza Gatica MD Unavailable +[phone] Esperanza Gatica MD Unavailable +[phone] Jesús Orourke MD Unavailable Alfreda RayC Primary Care Provider + Alfreda RayC Unavailable +[phone] Katrin OrellanaC Unavailable Shanna Vang-C Unavailable +[phone] Fransisco Eddy MD Unavailable +[phone] Esperanza Gatica MD Unavailable +[phone] Esperanza Gatica MD Unavailable +[phone] Katrin Orellana-C Unavailable Cristina Hsieh [facility] Unavailable +[phone] Ho Raymustapha BORRERO-C Unavailable +[phone] Cory Alfreda BORRERO-C Unavailable +[phone] Cristina Hsieh [facility] Unavailable +[phone] Dakota Tatum MD Unavailable Unava ilable Dakota Tatum MD Unavailable Unava ilable Srinivas Marie DO Unavailable [phone] Johanne Gutierrez RN Unavailable [phone] Linda Ambriz SEQUENCING MACHINE OPERATOR Unavailable + [phone] Reason for Visit * Reason Onset Date Comments MyChart Communication 10/09/2010 Encounter Details Date Type Department Care Team (Late st Contact Info) Description 10/09/2010 MyC Medical Advice [address] [address] Alfa Marcelo MD [facility] [address] [place] [address] MyChart Communication Social History Tobacco Use Types Packs/Day Years Used Date Smoking Tobacco: Former Cigarettes Q uit: 06/21/1973 Alcohol Use Standard Drinks/Week Comments Yes 0 (1 standard drink = 0.6 oz pur e alcohol) rarely Comments No Sex and Gender Information Value Date Recorded Sex Assigned at Female 08/17/2018 7:56 AM COUNTER PERSON Legal Sex Female 4:24 AM COUNTER PERSON Gender Identity Female 08/17/2018 7:56 AM COUNTER PERSON Sexual Orientation Straight 08/17/2018 7: 56 AM COUNTER PERSON documented as of this encounter Miscellaneous Notes * Telephone Encounter - Fartun Mayes Elder - 10/09/2010 10:17 AM CDT Please see MyChart msg and advise. Thank you. documented in this encounter Plan of Treatment Upcoming Encounters Date Type Department Care Team (Late st Contact Info) Description 06/28/2025 3:00 PM COUNTER PERSON Office Visit [facility] [address] [place] [address] Fransisco Eddy MD [address] [place] [address] documented as of this encounter Visit Diagnoses Not on filedocumented in this encounter Additional Health Concerns Infection Onset Date Last Indicated Resolved Time Rule Out COVID-19 05/08/2021 05/08/2021 05/09/2021 9:08 PM COUNTER PERSON documented as of this encounter Care Teams Tube Heater Relationship Specialty Start Date End Date Alfa Marcelo MD [address] [address] PCP - General 01/22/04 01/28/11 Ajay Dailey MD [address] [address] PCP - General Family Practice 01/29/11 10/12/11 Esperanza Gatica MD [address] [address] PCP - General Family Practice 10/13/11 12/29/21 [place] [address] [facility] [place] [address] PCP - Assigned PCP 12/05/17 08/23/18 Alfreda Ray PA-C [address] [place] [address] PCP - General Family Medicine 12/30/21 [place] [address] [place] [address] Assigned PCP 12/05/17 09/30/19 [place] [address] [place] [address] Assigned PCP 10/01/19 03/02/20 [place] [address] [place] [address] Assigned PCP 03/03/20 05/25/20 [place] [address] [place] [address] Assigned PCP 05/26/20 09/28/20 [place] [address] [place] [address] Assigned PCP 09/29/20 07/31/22 Jesú[place] [address] [place] [address] Assigned Musculoskeletal Provider 10/20/20 04/17/22 Alfreda Ray PA-C [address] [place] [address] Referring Physician Family Medicine 12/31/21 Katrin Orellana PA-C [address] [address] Physician Injection Moulding Machine Operator Dermatology 12/31/21 Shanna Vang PA-C [address] [place] [address] 505364 Assigned Cancer Care Provider 01/10/22 Fransisco Eddy MD [address] [place] [address] 197805 Assigned Rheumatology Provider 05/09/22 [place] [address] [place] [address] Assigned Pain Medication Provider 06/29/22 09/04/22 [place] [address] [place] [address] Assigned PCP 08/15/22 08/28/22 Katrin Orellana PA-C [address] [place] [address] Assigned Surgical Provider 08/15/22 02/10/24 Cristina Hsieh [facility] [address] [facility] [place] [address] Pharmacist Pharmacist 09/07/22 Alfreda Ray PA-C [address] [place] [address] Assigned Pain Medication Provider 09/05/22 09/10/23 Alfreda Ray PA-C [address] [place] [address] Assigned PCP 08/29/22 Cristina Hsieh, [facility] [address] [address] Assigned MTM Pharmacist 09/26/22 Dakota Tatum MD [address] [address] Cardiovascular Disease 03/25/23 Dakota Tatum MD Assigned Heart and Vascular Provider 05/01/23 11/09/24 [place] [address] [place] , [address] [address] Assigned Musculoskeletal Provider 04/12/24 Johanne Gutierrez, RN RN Clinical Product Navigator Primary Care - CC 08/18/24 08/18/24 Linda Ambriz, [facility] Lead Recreation Establishment Manager 08/18/24 08/23/24 documented as of this encounter
--- OUTSIDE RECORDS SUMMARY | 2025-02-24 20:56 | XMS_ITS | Encounter Summary ---
Author Organization [place] Address [address] [place] [address] Care Team Providers Care Retail Sales Merchandiser Development Name Role Phone Esperanza Gatica MD Primary Care Provider + Esperanza Gatica MD Unavailable +[phone] Esperanza Gatica MD Unavailable +[phone] Esperanza Gatica MD Unavailable +[phone] Esperanza Gatica MD Unavailable +[phone] Esperanza Gatica MD Unavailable +[phone] Esperanza Gatica MD Unavailable +[phone] Jesús Orourke MD Unavailable Alfreda RayC Primary Care Provider + Alfreda Ray PA-C Unavailable +- [phone] Katrin Orellana PA-C Unavailable +[phone] Shanna VangC Unavailable +[phone] Fransisco Eddy MD Unavailable +[phone] Esperanza Gatica MD Unavailable +[phone] Esperanza Gatica MD Unavailable +[phone] Katrin Orellana PA-C Unavailable Cristina Hsieh [facility] Unavailable +[phone] Cory Alfreda Liu PA-C Unavailable +[phone] Ho Raymustapha Liu PA-C Unavailable +[phone] Cristina Hsieh [facility] Unavailable +[phone] Dakota Tatum MD Unavailable Unava ilable Dakota Tatum MD Unavailable Unava ilable Srinivas Marie Unavailable +[phone] Johanne Gutierrez Salome RN Unavailable [phone] Linda Ambriz Gallito [facility] Unavailable +[phone] Reason for Visit * Reason Onset Date Comments Refill Request 02/06/2012 Ultram Encounter Details Date Type Department Care Team (Late st Contact Info) Description 02/06/[address], [address] [place] [address] [place] [address] [place] [address] Refill Request (Ultram ) Social History Tobacco Use Types Packs/Day Years Used Date Smoking Tobacco: Former Cigarettes Q uit: 06/21/1973 Smokeless Tobacco: Former Alcohol Use Standard Drinks/Week Comments Yes 0 (1 standard drink = 0.6 oz pur e alcohol) rarely Comments No Sex and Gender Information Value Date Recorded Sex Assigned at Female 08/17/2018 7:56 AM UPPER STITCHER Legal Sex Female 4:24 AM UPPER STITCHER Gender Identity Female 08/17/2018 7:56 AM UPPER STITCHER Sexual Orientation Straight 08/17/2018 7: 56 AM UPPER STITCHER documented as of this encounter Miscellaneous Notes * Telephone Encounter - Leigha Rinaldi - 02/08/2012 8:03 AM CDTMessage from Jean-Pault: Original authorizing provider: MD Alexandria Brannon would like a refill of the following medications: traMADol (ULTRAM) 50 MG tablet [Esperanza Gatica MD] Preferred pharmacy: [facility] [place] Comment: Sent from my iPad documented in this encounter Plan of Treatment Upcoming Encounters Date Type Department Care Team (Late st Contact Info) Description 06/28/2025 3:00 PM UPPER STITCHER Office Visit [facility] [address] [place] [address] [address] [place] [phone] Fransisco Eddy MD [address] [place] [address] documented as of this encounter Visit Diagnoses Diagnosis Knee pain Pain in joint, lower leg documented in this encounter Additional Health Concerns Infection Onset Date Last Indicated Resolved Time Rule Out COVID-19 05/08/2021 05/08/2021 05/09/2021 9:08 PM UPPER STITCHER documented as of this encounter Care Teams Retail Sales Merchandiser Development Relationship Specialty Start Date End Date Esperanza Gatica MD PCP - General Family Practice 10/13/11 12/29/21 [place] [address] [place] GARCIA [address] PCP - Assigned PCP 12/05/17 08/23/18 Alfreda Ray PA-C [address] [place] [address] PCP - General Family Medicine 12/30/21 [place] [address] [address] GARCIA [address] Assigned PCP 12/05/17 09/30/19 [place] [address] [place]ARCIA [address] Assigned PCP 10/01/19 03/02/20 [place] [address] [place] [address] Assigned PCP 03/03/20 05/25/20 [place] [address] [place] [address] Assigned PCP 05/26/20 09/28/20 [place] [address] [place] [address] Assigned PCP 09/29/20 07/31/22 Jesú[place] [address] [place] [address] [address] Assigned Musculoskeletal Provider 10/20/20 04/17/22 Alfreda Ray PA-C [address] [place] [address] 006892 Referring Physician Family Medicine 12/31/21 Katrin Orellana PA-C [address] [place] [address] 479955 Physician Supervisor Of Officials Dermatology 12/31/21 Shanna Vang PA-C [address] [place] [address] 285584 Assigned Cancer Care Provider 01/10/22 Farnsisco Eddy MD [address] [place] [address] Assigned Rheumatology Provider 05/09/22 [place] [address] [place] [address] Assigned Pain Medication Provider 06/29/22 09/04/22 [place] [address] [place] [address] Assigned PCP 08/15/22 08/28/22 Katrin Orellana PA-C [address] [place] [address] Assigned Surgical Provider 08/15/22 02/10/24 Cristina Hsieh [facility] [address] [facility] LISBETH HERNANDEZ [address] Pharmacist Pharmacist 09/07/22 Alfreda Ray PA-C [address] [place] [address] Assigned Pain Medication Provider 09/05/22 09/10/23 Alfreda Ray PA-C [address] [place] [address] Assigned PCP 08/29/22 Cristina Hsieh [facility] [address] [address] Assigned MTM Pharmacist 09/26/22 Dakota Tatum MD [address] [address] Cardiovascular Disease 03/25/23 Dakota Tatum MD Assigned Heart and Vascular Provider 05/01/23 11/09/24 [place] [address] CE[address] GAST[address]UM, [facility] [address] [place] [address] Assigned Musculoskeletal Provider 04/12/24 Johanne Gutierrez RN TIFFANIE Clinical Product Navigator Primary Care - CC 08/18/24 08/18/24 Linda Ambriz, [facility] Lead Inspector Machine Parts 08/18/24 08/23/24 documented as of this encounter
--- OUTSIDE RECORDS SUMMARY | 2025-02-24 20:56 | XMS_ITS | Encounter Summary ---
Author Organization [place] Address [address] [place] [address] Care Team Providers Care Check Weigher Name Role Phone Esperanza Gatica MD Unavailable +[phone] Alfreda Ray PA-C Primary Care Provider + Alfreda Ray PA-C Unavailable +[phone] Katrin Orellana PA-C Unavailable [phone] Shanna Vang PA-C Unavailable +[phone] Fransisco Eddy MD Unavailable +[phone] Esperanza Gatica MD Unavailable +[phone] Esperanza Gatica MD Unavailable +[phone] Katrin Orellana PA-C Unavailable [phone] Cristina Hsieh [facility] Unavailable +[phone] Alfreda Ray PA-C Unavailable +[phone] Alfreda Ray PA-C Unavailable +[phone] Cristina Hsieh [facility] Unavailable +[phone] Dakota Tatum MD Unavailable Unava ilable Dakota Tatum MD Unavailable Unava ilable Srinivas Marie DO Unavailable [phone] Johanne Gutierrez RN Unavailable +[phone] Linda Ambriz PBX WIRE CHIEF Unavailable Encounter Details Date Type Department Care Team (Late st Contact Info) Description 07/27/2022 MyC Medical Advice [address] [address] [facility] Social History Tobacco Use Types Packs/Day Years [...] Assigned at Female 08/17/2018 7:56 AM MACHINE CEMENTER AND FOLDER Legal Sex Female 4:24 AM MACHINE CEMENTER AND FOLDER Gender Identity Female 08/17/2018 7:56 AM MACHINE CEMENTER AND FOLDER Sexual Orientation Straight 08/17/2018 7: 56 AM MACHINE CEMENTER AND FOLDER documented as of this encounter Plan of Treatment Upcoming Encounters Date Type Department Care Team (Late st Contact Info) Description 06/28/2025 3:00 PM MACHINE CEMENTER AND FOLDER Office Visit [facility] [address] [place] [phone] Fransisco Eddy MD [address] [place] [address] 216255 documented as of this encounter Visit Diagnoses Not on filedocumented in this encounter Additional Health Concerns Assessment Noted Time PHQ-9 Depression Total Score: 4 09/05/19 22 10:39 AM CDT documented as of this encounter Care Teams Check Weigher Relationship Specialty Start Date End Date Alfreda Ray PA-C [address] [place] [address] 674682 PCP - General Family Medicine 12/30/21 [place] [address] [place]ISB[address] GARCIA [address] Assigned PCP 09/29/20 07/31/22 Alfreda Ray PA-C [address] [place] [address] 955202 Referring Physician Family Medicine 12/31/21 Katrin Orellana PA-C [address] [place] [address] Physician Plc Engineer Dermatology 12/31/21 Shanna Vang PA-C [address] [place] [place] [address] Assigned Cancer Care Provider 01/10/22 Fransisco Eddy MD [address] [place] [address] 363325 Assigned Rheumatology Provider 05/09/22 [place] [address] [place] [address] Assigned Pain Medication Provider 06/29/22 09/04/22 [place] [address] [place] [address] Assigned PCP 08/15/22 08/28/22 Katrin Orellana PA-C [address] [place] [address] [phone] Assigned Surgical Provider 08/15/22 02/10/24 Cristina Hsieh [facility] [address] [facility] [place] [address] Pharmacist Pharmacist 09/07/22 Alfreda Ray PA-C [address] [place] [address] Assigned Pain Medication Provider 09/05/22 09/10/23 Alfreda Ray PA-C [address] [place] [address] Assigned PCP 08/29/22 Cristina Hsieh, [facility] [address] [address] Assigned MTM Pharmacist 09/26/22 Dakota Tatum MD [address] [address] Cardiovascular Disease 03/25/23 Dakota Tatum MD Assigned Heart and Vascular Provider 05/01/23 11/09/24 [place] [address] [address] Assigned Musculoskeletal Provider 04/12/24 Johanne Gutierrez, RN RN Clinical Product Navigator Primary Care - CC 08/18/24 08/18/24 Linda Ambriz, [facility] Lead Dukey Rider 08/18/24 08/23/24 documented as of this encounter
--- OUTSIDE RECORDS SUMMARY | 2025-02-24 20:56 | XMS_ITS | Encounter Summary ---
Author Organization [place] Address [address] [place] [address] Care Team Providers Care Customer Support Advisor Name Role Phone Esperanza Gatica MD Primary Care Provider + Esperanza Gatica MD Unavailable + Esperanza Gatica MD Unavailable + Esperanza Gatica MD Unavailable + Esperanza Gatica MD Unavailable + Esperanza Gatica MD Unavailable + Jesús Orourke MD Unavailable Alfreda Ray-C Primary Care Provider + Alfreda Ray-C Unavailable + [phone] Katrin OrellanaC Unavailable +[phone] Shanna Vang-C Unavailable +[phone] Fransisco Eddy MD Unavailable [phone] Esperanza Gatica MD Unavailable + Esperanza Gatica MD Unavailable + Katrin OrellanaC Unavailable +[phone] Cristina Hsieh [facility] Unavailable +60 Alfreda Ray PA-C Unavailable +[phone] Alfreda Ray PA-C Unavailable +[phone] Cristina Hsieh Martin [facility] Unavailable +[phone] Dakota Tatum MD Unavailable Unava ilable Dakota Tatum MD Unavailable Unava ilable Srinivas Marie Unavailable [phone] Johanne Gutierrez RN Unavailable +[phone] Linda Ambriz CAR WASH ATTENDANT AUTOMATIC Unavailable [phone] Encounter Details Date Type Department Care Team (Late st Contact Info) Description 09/25/2019 MyC Medical Advice [address] [address] Edel Corrigan CMA Social History Tobacco Use Types Packs/Day Years [...] Assigned at Female 08/17/2018 7:56 AM SALESPERSON NECKTIES Legal Sex Female 4:24 AM SALESPERSON NECKTIES Gender Identity Female 08/17/2018 7:56 AM SALESPERSON NECKTIES Sexual Orientation Straight 08/17/2018 7: 56 AM SALESPERSON NECKTIES documented as of this encounter Plan of Treatment Upcoming Encounters Date Type Department Care Team (Late st Contact Info) Description 06/28/2025 3:00 PM SALESPERSON NECKTIES Office Visit [address] [place] [address] Fransisco Eddy MD [address] [place] [address] documented as of this encounter Visit Diagnoses Not on filedocumented in this encounter Additional Health Concerns Infection Onset Date Last Indicated Resolved Time Rule Out COVID-19 05/08/2021 05/08/2021 05/09/2021 9:08 PM SALESPERSON NECKTIES Assessment Noted Time PHQ-9 Depression Total Score: 1 08/20/19 19 1:44 PM SALESPERSON NECKTIES documented as of this encounter Care Teams Customer Support Advisor Relationship Specialty Start Date End Date Esperanza Gatica MD PCP - General Family Practice 10/13/11 12/29/21 Alfreda Ray PA-C [address] [place] [address] PCP - General Family Medicine 12/30/21 [place] [address] [place] [address] Assigned PCP 12/05/17 09/30/19 [place] [address] [place] [address] Assigned PCP 10/01/19 03/02/20 [place] [address] [place] [address] Assigned PCP 03/03/20 05/25/20 [place] [address] [place] [address] Assigned PCP 05/26/20 09/28/20 [place] [address] [place] [address] Assigned PCP 09/29/20 07/31/22 Jesú[place] [address] [address] [address] Assigned Musculoskeletal Provider 10/20/20 04/17/22 Alfreda Ray PA-C [address] [place] [address] 516992 Referring Physician Family Medicine 12/31/21 Katrin Orellana PA-C [address] [place] [address] 268445 Physician Noodle Maker Dermatology 12/31/21 Shanna Vang PA-C [address] [place] [address] 926624 Assigned Cancer Care Provider 01/10/22 Fransisco Eddy MD [address] [place] [address] 360895 Assigned Rheumatology Provider 05/09/22 [place] [address] LISB[address] GARCIA [address] Assigned Pain Medication Provider 06/29/22 09/04/22 [place] [address] [address] GARCIA [address] Assigned PCP 08/15/22 08/28/22 Katrin Orellana PA-C [address] [place] [address] 480835 Assigned Surgical Provider 08/15/22 02/10/24 Cristina Hsieh, [facility] [address] [facility] LISBETH HERNANDEZ [address] Pharmacist Pharmacist 09/07/22 Alfreda Ray PA-C [address] [place] [address] 381142 Assigned Pain Medication Provider 09/05/22 09/10/23 Alfreda Ray PA-C [address] [place] [address] 776092 Assigned PCP 08/29/22 Cristina Hsieh, [facility] [address] [address] Assigned MTM Pharmacist 09/26/22 Dakota Tatum MD [address] [address] Cardiovascular Disease 03/25/23 Dakota Tatum MD Assigned Heart and Vascular Provider 05/01/23 11/09/24 [place] [address] [place] , [address] [address] Assigned Musculoskeletal Provider 04/12/24 Johanne Gutierrez, RN RN Clinical Product Navigator Primary Care - CC 08/18/24 08/18/24 Linda Ambriz, [facility] Lead Shower Doors And Panels Fabricator 08/18/24 08/23/24 documented as of this encounter
--- OUTSIDE RECORDS SUMMARY | 2025-02-24 20:56 | XMS_ITS | Encounter Summary ---
Author Organization [place] Address [address] [place] [address] Care Team Providers Care Ccna Name Role Phone Esperanza Gatica MD Primary Care Provider + Esperanza Gatica MD Unavailable +[phone] Esperanza Gatica MD Unavailable +109 Esperanza Gatica MD Unavailable +264 Esperanza Gatica MD Unavailable +615 Esperanza Gatica MD Unavailable +556 Esperanza Gatica MD Unavailable +[phone] Jesús Orourke MD Unavailable Alfreda RayC Primary Care Provider + Alfreda Ray PA-C Unavailable +[phone] Katrin Orellana PA-C Unavailable [phone] Shanna VangC Unavailable +[phone] Fransisco Eddy MD Unavailable +[phone] Esperanza Gatica MD Unavailable +[phone] Esperanza Gatica MD Unavailable +[phone] Katrin Orellana PA-C Unavailable Cristina Hsieh [facility] Unavailable [phone] Cory Alfreda Liu PA-C Unavailable +[phone] Ho Raymustapha Liu PA-C Unavailable +[phone] Cristina Hsieh [facility] Unavailable +[phone] Dakota Tatum MD Unavailable Unava ilable Dakota Tatum MD Unavailable Unava ilable Cynthia, Srinivas Unavailable +[phone] Brenda Johanne Salome RN Unavailable [phone] Pb Landa Gallito [facility] Unavailable +[phone] Reason for Visit * Reason Onset Date Comments Refill Request 11/06/2011 Tramadol Encounter Details Date Type Department Care Team (Late st Contact Info) Description 11/06/[address] [address] Ajay Vick MD [address] [facility] [place] [address] Refill Request (Tramadol) Social History Tobacco Use Types Packs/Day Years Used Date Smoking Tobacco: Former Cigarettes Q uit: 06/21/1973 Smokeless Tobacco: Former Alcohol Use Standard Drinks/Week Comments Yes 0 (1 standard drink = 0.6 oz pur e alcohol) rarely Comments No Sex and Gender Information Value Date Recorded Sex Assigned at Female 08/17/2018 7:56 AM ENVIRONMENTAL COMMUNICATIONS SPECIALIST Legal Sex Female 4:24 AM ENVIRONMENTAL COMMUNICATIONS SPECIALIST Gender Identity Female 08/17/2018 7:56 AM ENVIRONMENTAL COMMUNICATIONS SPECIALIST Sexual Orientation Straight 08/17/2018 7: 56 AM ENVIRONMENTAL COMMUNICATIONS SPECIALIST documented as of this encounter Miscellaneous Notes * Telephone Encounter - Leigha Rinaldi - 11/09/2011 1:16 PM CDTMessage from [place]: Original authorizing provider: AJAY VICK MD Barbara J Pellicci would like a refill of the following medications: traMADol (ULTRAM) 50 MG tablet [AJAY VICK MD] Preferred pharmacy: [facility] [place] Comment: I have switched to Dr. Esperanza Gatica. documented in this encounter Plan of Treatment Upcoming Encounters Date Type Department Care Team (Late st Contact Info) Description 06/28/2025 3:00 PM ENVIRONMENTAL COMMUNICATIONS SPECIALIST Office Visit [facility] Specialty [address] [place] [phone] Fransisco Eddy MD [address] [place] [address] documented as of this encounter Visit Diagnoses Diagnosis Knee pain Pain in joint, lower leg documented in this encounter Additional Health Concerns Infection Onset Date Last Indicated Resolved Time Rule Out COVID-19 05/08/2021 05/08/2021 05/09/2021 9:08 PM ENVIRONMENTAL COMMUNICATIONS SPECIALIST documented as of this encounter Care Teams Ccna Relationship Specialty Start Date End Date Esperanza Gatica MD PCP - General Family Practice 10/13/11 12/29/21 [place] [address] [address]B[address] GARCIA [address] PCP - Assigned PCP 12/05/17 08/23/18 Alfreda Ray PA-C [address] [place] [address] PCP - General Family Medicine 12/30/21 [place] [address] [place]B[address] GARCIA [address] Assigned PCP 12/05/17 09/30/19 [place] [address] [place] GARCIA [address] Assigned PCP 10/01/19 03/02/20 [place] [address] [place] [address] Assigned PCP 03/03/20 05/25/20 [place] [address] [place] [address] Assigned PCP 05/26/20 09/28/20 [place] [address] [place] [address] Assigned PCP 09/29/20 07/31/22 [place] [address] [address] Assigned Musculoskeletal Provider 10/20/20 04/17/22 Alfreda Ray PA-C [address] [place] [address] 013422 Referring Physician Family Medicine 12/31/21 Katrin Orellana PA-C [address] [place] [address] 170545 Physician Hotel Breakfast Attendant Dermatology 12/31/21 Shanna Vang PA-C [address] [place] [address] 687654 Assigned Cancer Care Provider 01/10/22 Fransisco Eddy MD [address] [place] [address] [id number] Assigned Rheumatology Provider 05/09/22 [place] [address] [address] [place] [address] Assigned Pain Medication Provider 06/29/22 09/04/22 [place] [address] [place] [address] Assigned PCP 08/15/22 08/28/22 Katrin Orellana PA-C [address] [place] [address] Assigned Surgical Provider 08/15/22 02/10/24 Cristina Hsieh [facility] [address] [place] [address] [place] [address] Pharmacist Pharmacist 09/07/22 Alfreda Ray PA-C [address] [place] [address] Assigned Pain Medication Provider 09/05/22 09/10/23 Alfreda Ray PA-C [address] [place] [address] Assigned PCP 08/29/22 Cristina Hsieh [facility] [address] [id number] Assigned MTM Pharmacist 09/26/22 Dakota Tatum MD [address] [address] Cardiovascular Disease 03/25/23 Dakota Tatum MD Assigned Heart and Vascular Provider 05/01/23 11/09/24 [place] [address] CELE GASTELUM, [address] [place] [address] Assigned Musculoskeletal Provider 04/12/24 Joahnne Gutierrez RN TIFFANIE Clinical Product Navigator Primary Care - CC 08/18/24 08/18/24 Linda Ambriz, [facility] Lead Glost Tile Sorter 08/18/24 08/23/24 documented as of this encounter
--- OUTSIDE RECORDS SUMMARY | 2025-02-24 20:56 | XMS_ITS | Encounter Summary ---
Author Organization [facility] Address [address] [place] [address] Care Team Providers Care China Painter Name Role Phone Esperanza Gatica MD Primary Care Provider + Esperanza Gatica MD Unavailable + Esperanza Gatica MD Unavailable + Esperanza Gatica MD Unavailable + Esperanza Gatica MD Unavailable + Esperanza Gatica MD Unavailable + Jesús Orourke MD Unavailable Alfreda Ray-C Primary Care Provider + Alfreda Ray-C Unavailable + [phone] Katrin OrellanaC Unavailable +[phone] Shanna Vang-C Unavailable +[phone] Fransisco Eddy MD Unavailable [phone] Esperanza Gatica MD Unavailable + Esperanza Gatica MD Unavailable + Katrin OrellanaC Unavailable +[phone] Cristina Hsieh [facility] Unavailable +[phone] Ray, Alfreda Liu PA-C Unavailable +[phone] Cory Alfreda Liu PA-C Unavailable +[phone] Cristina Hsieh [facility] Unavailable +[phone] Dakota Tatum MD Unavailable Unava ilable Dakota Tatum MD Unavailable Unava ilable Srinivas Marie Unavailable +[phone] Johanne Gutierrez RN Unavailable +[phone] Linda Ambriz COMMERCIAL DRAFTER Unavailable [phone] Encounter Details Date Type Department Care Team (Late st Contact Info) Description 07/27/2019 MyC Medical Advice [address], [address] [place] [address] [place] [address] [place] [address] Social History Tobacco Use Types [...] Sex Assigned at Female 08/17/2018 7:56 AM OFFICE MANAGER Legal Sex Female 4:24 AM OFFICE MANAGER Gender Identity Female 08/17/2018 7:56 AM OFFICE MANAGER Sexual Orientation Straight 08/17/2018 7: 56 AM OFFICE MANAGER documented as of this encounter Plan of Treatment Upcoming Encounters Date Type Department Care Team (Late st Contact Info) Description 06/28/2025 3:00 PM OFFICE MANAGER Office Visit [address] [place] [address] Fransisco Eddy MD [address] [place] [address] documented as of this encounter Visit Diagnoses Not on filedocumented in this encounter Additional Health Concerns Infection Onset Date Last Indicated Resolved Time Rule Out COVID-19 05/08/2021 05/08/2021 05/09/2021 9:08 PM OFFICE MANAGER Assessment Noted Time PHQ-9 Depression Total Score: 1 08/20/19 19 1:44 PM OFFICE MANAGER documented as of this encounter Care Teams China Painter Relationship Specialty Start Date End Date Esperanza Gatica MD PCP - General Family Practice 10/13/11 12/29/21 Alfreda Ray PA-C [address] [place] [address]647 PCP - General Family Medicine 12/30/21 [place] [address] [place] [place] [address] Assigned PCP 12/05/17 09/30/19 [place] [address] [address] [place] [address] Assigned PCP 10/01/19 03/02/20 [place] [address] [address] [place] [address] Assigned PCP 03/03/20 05/25/20 [place] [address] [address] [place] [address] Assigned PCP 05/26/20 09/28/20 [place] [address] [address] [place] [address] Assigned PCP 09/29/20 07/31/22 Jesú[place] [address] [address] Assigned Musculoskeletal Provider 10/20/20 04/17/22 Alfreda Ray PA-C [address] [place] [address] Referring Physician Family Medicine 12/31/21 Katrin Orellana PA-C [address] [place] [address] Physician Graphite Pan Drier Tender Dermatology 12/31/21 Shanna Vang PA-C [address] [place] [address] Assigned Cancer Care Provider 01/10/22 Fransisco Eddy MD [address] [place] [address] Assigned Rheumatology Provider 05/09/22 [place] [address] [place] [address] Assigned Pain Medication Provider 06/29/22 09/04/22 [place] [address] [place] [address] Assigned PCP 08/15/22 08/28/22 Katrin Orellana PA-C [address] [place] [address] Assigned Surgical Provider 08/15/22 02/10/24 Cristina Hsieh [facility] [address] [facility] [place] [address] Pharmacist Pharmacist 09/07/22 Alfreda Ray PA-C [address] [place] [address] Assigned Pain Medication Provider 09/05/22 09/10/23 Alfreda Ray PA-C [address] [place] [address] 899712 Assigned PCP 08/29/22 Cristina Hsieh [facility] [address] [address] Assigned MTM Pharmacist 09/26/22 Dakota Tatum MD [address] [address] Cardiovascular Disease 03/25/23 Dakota Tatum MD Assigned Heart and Vascular Provider 05/01/23 11/09/24 [place] [address] [place] , [address] [address] Assigned Musculoskeletal Provider 04/12/24 Johanne Gutierrez, RN RN Clinical Product Navigator Primary Care - CC 08/18/24 08/18/24 Linda Ambriz, [facility] Lead Night Monitor 08/18/24 08/23/24 documented as of this encounter
--- OUTSIDE RECORDS SUMMARY | 2025-02-24 20:56 | XMS_ITS | Encounter Summary ---
Author Organization [facility] Address [address] [place] [address] Care Team Providers Care Urban Forester Name Role Phone Esperanza Gatica MD Primary Care Provider + Esperanza Gatica MD Unavailable + Esperanza Gatica MD Unavailable + Esperanza Gatica MD Unavailable + Esperanza Gatica MD Unavailable + Esperanza Gatica MD Unavailable + Jesús Orourke MD Unavailable Alfreda Ray-C Primary Care Provider + Alfreda Ray-C Unavailable + [phone] Katrin OrellanaC Unavailable +[phone] Shanna Vang-C Unavailable +[phone] Fransisco Eddy MD Unavailable [phone] Esperanza Gatica MD Unavailable + Esperanza Gatica MD Unavailable + Katrin OrellanaC Unavailable +[phone] Cristina Hsieh [facility] Unavailable +[phone] Alfreda Ray PA-C Unavailable [phone] Alfreda Ray PA-C Unavailable +[phone] Cristina Hsieh Martin [facility] Unavailable [phone] Dakota Tatum MD Unavailable Unava ilable Dakota Tatum MD Unavailable Unava ilable CynthiaSrinivas Unavailable [phone] Johanne Gutierrez RN Unavailable [phone] Linda Ambriz [facility] Unavailable [phone] Encounter Details Date Type Department Care Team (Late st Contact Info) Description 01/25/2019 MyC Medical Advice [address] [address] Jena Howe RN Social History [...] Sex Assigned at Female 08/17/2018 7:56 AM WATERPROOFING SUPERVISOR Legal Sex Female 4:24 AM WATERPROOFING SUPERVISOR Gender Identity Female 08/17/2018 7:56 AM WATERPROOFING SUPERVISOR Sexual Orientation Straight 08/17/2018 7: 56 AM WATERPROOFING SUPERVISOR documented as of this encounter Plan of Treatment Upcoming Encounters Date Type Department Care Team (Late st Contact Info) Description 06/28/2025 3:00 PM WATERPROOFING SUPERVISOR Office Visit [facility] [address] [address] Fransisco Eddy MD [address] [place] [address] 463615 documented as of this encounter Visit Diagnoses Not on filedocumented in this encounter Additional Health Concerns Infection Onset Date Last Indicated Resolved Time Rule Out COVID-19 05/08/2021 05/08/2021 05/09/2021 9:08 PM WATERPROOFING SUPERVISOR Assessment Noted Time PHQ-9 Depression Total Score: 1 08/20/19 19 1:44 PM WATERPROOFING SUPERVISOR documented as of this encounter Care Teams Urban Forester Relationship Specialty Start Date End Date Esperanza Gatica MD PCP - General Family Practice 10/13/11 12/29/21 Alfreda Ray PA-C [address] [place] [address] PCP - General Family Medicine 12/30/21 [place] [address] [place] [address] Assigned PCP 12/05/17 09/30/19 [place] [address] [place] [address] Assigned PCP 10/01/19 03/02/20 [place] [address] [place] [address] Assigned PCP 03/03/20 05/25/20 [place] [address] [place] [address] Assigned PCP 05/26/20 09/28/20 [place] [address] [place] [address] Assigned PCP 09/29/20 07/31/22 Jesú[place] [address] [place] [address] [address] Assigned Musculoskeletal Provider 10/20/20 04/17/22 Alfreda Ray PA-C [address] [place] [address] 895592 Referring Physician Family Medicine 12/31/21 Katrin Orellana PA-C [address] [place] [address] 978115 Physician Director E Learning Dermatology 12/31/21 Shanna Vang PA-C [address] [place] [address] 153064 Assigned Cancer Care Provider 01/10/22 Fransisco Eddy MD [address] [place] [address] 390025 Assigned Rheumatology Provider 05/09/22 [place] [address] [place] [address] Assigned Pain Medication Provider 06/29/22 09/04/22 [place] [address] [address] [address] Assigned PCP 08/15/22 08/28/22 Katrin Orellana PA-C [address] [place] [address] 632985 Assigned Surgical Provider 08/15/22 02/10/24 Cristina Hsieh, [facility] [address] [facility] [place] [address] Pharmacist Pharmacist 09/07/22 Alfreda Ray PA-C [address] [place] [address] 761532 Assigned Pain Medication Provider 09/05/22 09/10/23 Alfreda Ray PA-C [address] [place] [address] 978502 Assigned PCP 08/29/22 Cristina Hsieh, [facility] [address] [address] Assigned MTM Pharmacist 09/26/22 Dakota Tatum MD [address] [address] Cardiovascular Disease 03/25/23 Dakota Tatum MD Assigned Heart and Vascular Provider 05/01/23 11/09/24 [place] [address] [place] , [address] [address] Assigned Musculoskeletal Provider 04/12/24 Johanne Gutierrez, RN RN Clinical Product Navigator Primary Care - CC 08/18/24 08/18/24 Linda Ambriz, [facility] Lead Metal Precision Machine Assembler 08/18/24 08/23/24 documented as of this encounter
--- OUTSIDE RECORDS SUMMARY | 2025-02-24 20:56 | XMS_ITS | Encounter Summary ---
Author Organization [facility] Address [address] [place] [address] Care Team Providers Care Residential Direct Support Professional Name Role Phone Esperanza Gatica MD Primary Care Provider + Esperanza Gatica MD Unavailable + Esperanza Gatica MD Unavailable + Esperanza Gatica MD Unavailable + Esperanza Gatica MD Unavailable + Jesús Orourke MD Unavailable Alfreda Ray PA-C Primary Care Provider + Alfreda Ray PA-C Unavailable +[phone] Katrin Orelalna PA-C Unavailable +[phone] Shanna Vang PA-C Unavailable +[phone] Fransisco Eddy MD Unavailable [phone] Esperanza Gatica MD Unavailable + Esperanza Gatica MD Unavailable + Katrin Orellana PA-C Unavailable +[phone] Cristina Hsieh [facility] Unavailable + [phone] Alfreda Ray PA-C Unavailable Alfreda Ray PA-C Unavailable Cristina Hsieh [facility] Unavailable +[phone] Dakota Tatum MD Unavailable Unava ilable Dakota Tatum MD Unavailable Unava ilable Srinivas Marie DO Unavailable Johanne Gutierrez RN Unavailable [phone] Linda Ambriz [facility] Unavailable [phone] Reason for Visit * Reason Comments Medication Refill Encounter Details Date Type Department Care Team (Late st Contact Info) Description 11/02/2019 Refill M [address], [address] [place] [address] [place] [address] [place] [address] Medication Refill Social History Tobacco [...] Assigned at Female 08/17/2018 7:56 AM BI LEAD Legal Sex Female 4:24 AM BI LEAD Gender Identity Female 08/17/2018 7:56 AM BI LEAD Sexual Orientation Straight 08/17/2018 7: 56 AM BI LEAD documented as of this encounter Miscellaneous Notes * Telephone Encounter - Essence Meyer RN - 11/02/2019 10:08 AM CDT Prescription approved per [facility], [facility] or [facility] refill protocol. Essence Rodney - Registered Nurse [facility] documented in this encounter Plan of Treatment Upcoming Encounters Date Type Department Care Team (Late st Contact Info) Description 06/28/2025 3:00 PM BI LEAD Office Visit [facility] [address] [place] [id number] Fransisco Eddy MD [address] [place] [address] documented as of this encounter Visit Diagnoses Diagnosis Insomnia, unspecified type documented in this encounter Additional Health Concerns Infection Onset Date Last Indicated Resolved Time Rule Out COVID-19 05/08/2021 05/08/2021 05/09/2021 9:08 PM BI LEAD Assessment Noted Time PHQ-9 Depression Total Score: 1 08/20/19 1:44 PM BI LEAD documented as of this encounter Care Teams Residential Direct Support Professional Relationship Specialty Start Date End Date Esperanza Gatica MD PCP - General Family Practice 10/13/11 12/29/21 Alfreda Ray PA-C [address] [place] [address] PCP - General Family Medicine 12/30/21 [place] [address] [place] [place] [address] Assigned PCP 10/01/19 03/02/20 [place] [address] [place] [place] [address] Assigned PCP 03/03/20 05/25/20 [place] [address] [address] [place] [address] Assigned PCP 05/26/20 09/28/20 [place] [address] [place] [address] Assigned PCP 09/29/20 07/31/22 Jesú[place] [address] [place] [address] Assigned Musculoskeletal Provider 10/20/20 04/17/22 Alfreda Ray PA-C [address] [place] [address] 457312 Referring Physician Family Medicine 12/31/21 Katrin Orellana PA-C [address] [place] [address] 770625 Physician Fish Cutter Dermatology 12/31/21 Shanna Vang [place] [address] [place] [address] [id number] Assigned Cancer Care Provider 01/10/22 Fransisco Eddy MD [address] [place] [address] 606755 Assigned Rheumatology Provider 05/09/22 [place] [address] [address] [place] [address] Assigned Pain Medication Provider 06/29/22 09/04/22 [place] [address] [place] [address] Assigned PCP 08/15/22 08/28/22 Katrin Orellana PA-C [address] [place] [address] Assigned Surgical Provider 08/15/22 02/10/24 Cristina Hsieh [facility] [address] [facility] [place] [address] Pharmacist Pharmacist 09/07/22 Alfreda Ray PA-C [address] [place] [address] 080992 Assigned Pain Medication Provider 09/05/22 09/10/23 Alfreda Ray PA-C [address] [place] [address] 455462 Assigned PCP 08/29/22 Cristina Hsieh [facility] [address] [address] Assigned MTM Pharmacist 09/26/22 Dakota Tatum MD [address] [address] Cardiovascular Disease 03/25/23 Dakota Tatum MD Assigned Heart and Vascular Provider 05/01/23 11/09/24 [place] [address] [place], [address] [address] Assigned Musculoskeletal Provider 04/12/24 Johanne Gutierrez RN TIFFANIE Clinical Product Navigator Primary Care - CC 08/18/24 08/18/24 Linda Ambriz, [facility] Lead Lead Mechanical Engineer 08/18/24 08/23/24 documented as of this encounter
--- OUTSIDE RECORDS SUMMARY | 2025-02-24 20:57 | XMS_ITS | Encounter Summary ---
Author Organization [facility] Address [address] [place] [address] Care Team Providers Care Bulk Plant Operator Name Role Phone Alfreda Ray PA-C Primary Care Provider + Alfreda Ray PA-C Unavailable [phone] Katrin Orellana PA-C Unavailable Shanna Vang PA-C Unavailable +[phone] Fransisco Eddy MD Unavailable [phone] Cristina Hsieh [facility] Unavailable +[phone] Alfreda Ray PA-C Unavailable +[phone] Cristina Hsieh [facility] Unavailable +[phone] Dakota Tatum MD Unavailable Unava ilable Dakota Tatum MD Unavailable Unava ilable Srinivas Marie DO Unavailable [phone] Johanne Gutierrez RN Unavailable [phone] Linda Ambriz [facility] Unavailable [phone] Encounter Details Date Type Department Care Team (Late st Contact Info) Description 06/07/2024 MyC Medical [facility]omas [address] [address] Alfreda Ray PA-C [address] [place] [address] Social History Tobacco Use Types Packs/Day Years [...] Answer Date Recorded PHQ-2 Score 0 03/16/2024 [facility] - [...] Assigned at Female 08/17/2018 7:56 AM MOLD MAKING PLASTICS SHEETS SUPERVISOR Legal Sex Female 4:24 AM MOLD MAKING PLASTICS SHEETS SUPERVISOR Gender Identity Female 08/17/2018 7:56 AM MOLD MAKING PLASTICS SHEETS SUPERVISOR Sexual Orientation Straight 08/17/2018 7: 56 AM MOLD MAKING PLASTICS SHEETS SUPERVISOR documented as of this encounter Plan of Treatment Upcoming Encounters Date Type Department Care Team (Late st Contact Info) Description 06/28/2025 3:00 PM MOLD MAKING PLASTICS SHEETS SUPERVISOR Office Visit [address] [address] Fransisco Eddy MD [address] [place] [address] 796295 documented as of this encounter Visit Diagnoses Not on filedocumented in this encounter Additional Health Concerns Assessment Noted Time PHQ-9 Depression Total Score: 5 03/09/20 23 10:57 AM CDT documented as of this encounter Care Teams Bulk Plant Operator Relationship Specialty Start Date End Date Alfreda Ray PA-C [address] [place] [address] [id number] PCP - General Family Medicine 7/12/22 Alfreda Ray PA-C [address] [place] [address] Referring Physician Family Medicine 12/31/21 Katrin Orellana PA-C [address] [place] [address] 98 [place] [address] Physician Cable Reeler Dermatology 12/31/21 Shanna Vang PA-C [facility] 106594 Assigned Cancer Care Provider 01/10/22 Fransisco Eddy MD [address] [place] [address] [phone] Assigned Rheumatology Provider 05/09/22 Cristina Hsieh [facility] [address] [facility] [place] [address] Pharmacist Pharmacist 09/07/22 Alfreda Ray PA-C [address] [place] [address] Assigned PCP 08/29/22 Cristina Hsieh [facility] [address] [address] Assigned MTM Pharmacist 09/26/22 Dakota Tatum MD [address] [address] Cardiovascular Disease 03/25/23 Dakota Tatum MD Assigned Heart and Vascular Provider 05/01/23 11/09/24 [place] [address] [place], [address] [address] Assigned Musculoskeletal Provider 04/12/24 Johanne Gutierrez RN RN Clinical Product Navigator Primary Care - CC 08/18/24 08/18/24 Linda Ambriz, [facility] Lead Executive Legal Secretary 08/18/24 08/23/24 documented as of this encounter
--- OUTSIDE RECORDS SUMMARY | 2025-02-24 20:57 | XMS_ITS | Clinical Summary ---
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 Encounters Date Type Department Care Team Description 02/08/2025 3:30 PM CDT Ancillary Procedure [facility] [address] [place] [address] from Last 3 Months Family History Medical History Relation Name Comments Other Brother Migraines Other Mother Migraines Genetic Other Cataracts Mothe r Relation Name Status Comments Brother Mother [...] on file Legal Sex Female 5:27 AM FRONT OFFICE JAVA DEVELOPER Gender Identity Not on file Sexual Orientation Not on file Obstetrics History Last Filed Vital Signs Vital Sign Reading Time Taken Comments Blood Pressure 125/62 01/31/2019 10:24 AM CDT Pulse 66 01/31/2019 10:24 AM CDT Temperature 36.3 C (97.3 F) 04/29/2015 8:20 AM FRONT OFFICE JAVA DEVELOPER Respiratory Rate 16 04/29/2015 8:45 AM FRONT OFFICE JAVA DEVELOPER Oxygen Saturation 98% 04/29/2015 8:45 AM FRONT OFFICE JAVA DEVELOPER Inhaled Oxygen Concentration - - Weight 61.7 kg (135 lb 15.3 oz) 015 12:42 AM FRONT OFFICE JAVA DEVELOPER Height 160 cm (5' 3) 04/29/2015 6:24 AM FRONT OFFICE JAVA DEVELOPER Body Mass Index 24.08 04/25/2015 12:42 AM FRONT OFFICE JAVA DEVELOPER Plan of Treatment Health Maintenance Due Date Last Done Comments Tetanus booster 1953 Depression screening for age 12+ 1954 BMI (ht and wt on same day) for age 18+ 1960 Zoster (shingles) series for age 50+ (1 of 2) 1961 Pneumococcal series for age 50+ (1 of 1 - PCV) 1992 DEXA/DXA scan for age 65+ 2007 Medicare Wellness for age 65+ 2007 RSV vaccine for adults or (1 - 1-dose 75+ series) 2017 COVID-19 vaccine series (8 - Pfizer risk 2023- season) 2025 03/16/2024, 05/03/2023, 04/22/2022, Additional history exists Influenza Vaccine (#1) 2025 Hepatitis B series for 19+ Aged Out N o longer eligible based on patient's age to complete this topic Medical Devices Implanted Type Area Insurance Writer Device Identifier Shelf Expiration Date Model / Serial / Lot Lens Iol 21.5 Wf [id number]. [id number] - [id number] Implanted:Qty: 1 on 04/15/2015 by David Garcia MD at [facility] Left: Eye [employer] 01/14/2020 [id number]-85. 5# / [id number] / Lens Iol 20.5 Wf [id number]. 5 - [id number] Implanted:Qty: 1 on 04/29/2015 by David Garcia MD at [facility] Right: Eye [employer] 01/19/2020 [id number]-[id number]. 5# / [id number] / Procedures Procedure Name Priority Date/Time Associated Diagnosis Comments ECHO TTE COMPLETE WO CONTRAST Routine 02/08/2025 4:02 PM CDT Recurrent syncope from Last 3 Months Results * ECHO TTE COMPLETE WO CONTRAST (02/08/2025 4:02 PM CDT) AORTIC VALVE MEAN PG 7 mmHg EJECTION FRACTION 70 % LVEDD 4.3 cm Anatomical Region Laterality Modality Ultrasound 02/08/2025 3:16 PM CDT Narrative 02/08/2025 4:12 PM CDT ECHOCARDIOGRAM ALEXANDRIA BRADSHAW : 1940 84 years Study Date: 02/08/2025 3:16:36 PM Gender: F BP: 189/62 mmHg Height: 160.00 cm BSA: 1.88 m Weight: 85.00 kg Tech: [facility] [place] Referring MD: ROB COE Site: [facility] Reading Location: MOBILE IP Patient Location: Inpatient. Procedure: 2D, Color Doppler and Spectral Doppler. Indication for study: Syncope Cardiac Rhythm: Regular.Study quality: Fair. Final Impressions: 1. Normal left ventricular size, mildly increased wall thickness, hyperdynamic global systolic function, calculated EF of 70 %. 2. Right ventricular cavity size is normal, global systolic RV function is normal. 3. Moderately enlarged left atrium. 4. The aortic valve is trileaflet, normal and sclerotic, no stenosis and mild regurgitation. 5. The mitral valve is normal, mild to moderate mitral regurgitation. 6. Tricuspid valve is normal, mild tricuspid regurgitation. 7. No pericardial effusion. Chamber Sizes and Function Normal left ventricular size, mildly increased wall thickness, hyperdynamic global systolic function, calculated EF of 70 %. No resting regional wall motion abnormality visualized. Left atrial size is moderately enlarged. Right ventricular cavity size is normal, global systolic RV function is normal. RV wall thickness is normal. The right atrium is normal. Right atrial volume index is 12 ml/m . Right atrial area is 11 cm . The pulmonary artery is of normal size and origin. The sinus of Valsalva is normal sized. The ascending aorta is normal sized. Valves, RV Pressures and Diastolic Function The aortic valve is trileaflet, normal in structure and sclerotic, no stenosis and mild regurgitation. The mitral valve is normal in structure, mild to moderate mitral regurgitation. Normal diastolic function. The tricuspid valve is normal in structure, mild tricuspid regurgitation. The pulmonic valve is normal. No pulmonary regurgitation. Masses, Effusion, Shunts There is no pericardial effusion. The inferior vena cava is normal sized, respiratory size variation greater than 50%. No left to right shunting was detected by limited color flow Doppler interrogation of the interatrial septum. MEASUREMENTS AND CALCULATIONS 2-D Measurements and LV Function: LVID (d) 4.3 cm Planimetered EF 70 % LVID (s) 1.9 cm LV FS% (2D) 57 % IVS (d) 1.2 cm LVOT diameter 2.4 cm LVPW (d) 0.9 cm HR 59 bpm Ao Sinus 3.7 cm LA Vol index 48 ml/m2 Ao Sinus ULN 3.8 cm * RA Vol index 12 ml/m2 Asc Ao 3.3 cm RA area 11 cm Asc Ao ULN 4.1 cm * RV Basal Diam 2.7 cm * Input age outside of range, reported values RV Mid Diam 1.8 cm correspond to Age = 82 Diastology: Mitral Tissue Doppler E Peak 0.7 m/s e', Septum 0.06 m/s A Peak 0.7 m/s e', Lateral 0.09 m/s E/A 1.0 E/e' Average 9.55 DT 159 msec Aortic Valve: Vmax 1.7 m/s JODI (V) 3.38 cm AI P 1/2 391 msec VTI 0.42 m JODI (I) 3.04 cm LVOT V max 1.2 m/s Max PG 11 mmHg LVOT VTI 0.28 m Mean PG 7 mmHg SV 128 ml Dim Index 0.67 SV index 68 ml/m CO 7.5 l/min CI 4.0 l/min/m Mitral Valve: MVA 4.8 cm MV P 1/2 46 msec MV Mean G 1 mmHg MV VTI 0.31 m Tricuspid Valve and estimated PA pressures: TAPSE 1.8 cm Pulmonic Valve: PV Vmax 1.0 m/s PV AT 121 msec . This study was interpreted by an [facility] accredited facility. CC: Med/Surg - IP [facility]. Final Procedure Note Inna Louis, [facility] - 02/08/2025 ECHOCARDIOGRAM ALEXANDRIA BRADSHAW : 1940 84 years Study Date: 02/08/2025 3:16:36 PM Gender: F BP: 189/62 mmHg Height: 160.00 cm BSA: 1.88 m Weight: 85.00 kg Tech: [facility] [place] Referring MD: ROB COE Site: [facility] Reading Location: MOBILE IP Patient Location: Inpatient. Procedure: 2D, Color Doppler and Spectral Doppler. Indication for study: Syncope Cardiac Rhythm: Regular.Study quality: Fair. Final Impressions: 1. Normal left ventricular size, mildly increased wall thickness,hyperdynamic global systolic function, calculated EF of 70 %. 2. Right ventricular cavity size is normal, global systolic RV functionis normal. 3. Moderately enlarged left atrium. 4. The aortic valve is trileaflet, normal and sclerotic, no stenosis andmild regurgitation. 5. The mitral valve is normal, mild to moderate mitral regurgitation. 6. Tricuspid valve is normal, mild tricuspid regurgitation. 7. No pericardial effusion. Chamber Sizes and Function Normal left ventricular size, mildly increased wall thickness,hyperdynamic global systolic function, calculated EF of 70 %. No restingregional wall motion abnormality visualized. Left atrial size ismoderately enlarged. Right ventricular cavity size is normal, globalsystolic RV function is normal. RV wall thickness is normal. The rightatrium is normal. Right atrial volume index is 12 ml/m . Right atrialarea is 11 cm . The pulmonary artery is of normal size and origin. Thesinus of Valsalva is normal sized. The ascending aorta is normal sized. Valves, RV Pressures and Diastolic Function The aortic valve is trileaflet, normal in structure and sclerotic, nostenosis and mild regurgitation. The mitral valve is normal in structure,mild to moderate mitral regurgitation. Normal diastolic function. Thetricuspid valve is normal in structure, mild tricuspid regurgitation. Thepulmonic valve is normal. No pulmonary regurgitation. Masses, Effusion, Shunts There is no pericardial effusion. The inferior vena cava is normal sized,respiratory size variation greater than 50%. No left to right shunting wasdetected by limited color flow Doppler interrogation of the interatrialseptum. MEASUREMENTS AND CALCULATIONS 2-D Measurements and LV Function: LVID (d) 4.3 cm Planimetered EF 70% LVID (s) 1.9 cm LV FS% (2D) 57% IVS (d) 1.2 cm LVOT diameter2.4 cm LVPW (d) 0.9 cm HR 59bpm Ao Sinus 3.7 cm LA Vol index 48ml/m2 Ao Sinus ULN 3.8 cm * RA Vol index 12ml/m2 Asc Ao 3.3 cm RA area 11cm Asc Ao ULN 4.1 cm * RV Basal Diam2.7 cm * Input age outside of range, reported values RV Mid Diam1.8 cm correspond to Age = 82 Diastology: Mitral Tissue Doppler E Peak 0.7 m/s e', Septum 0.06 m/s A Peak 0.7 m/s e', Lateral 0.09 m/s E/A 1.0 E/e' Average 9.55 DT 159 msec Aortic Valve: Vmax 1.7 m/s JODI (V) 3.38 cm AI P 1/2 391 msec VTI 0.42 m JODI (I) 3.04 cm LVOT V max 1.2 m/s Max PG 11 mmHg LVOT VTI 0.28 m Mean PG 7 mmHg SV 128 ml Dim Index 0.67 SV index 68 ml/m CO 7.5 l/min CI 4.0 l/min/m Mitral Valve: MVA 4.8 cm MV P 1/2 46 msec MV Mean G 1 mmHg MV VTI 0.31 m Tricuspid Valve and estimated PA pressures: TAPSE 1.8 cm Pulmonic Valve: PV Vmax 1.0 m/s PV AT 121 msec . This study was interpreted by an [facility] accredited facility. CC: Med/Surg - IP [facility]. Final us Rob Coe MD ECHO ORD Final Resu lt from Last 3 Months Insurance MEDICARE PART B HB ONLY MEDICA [...] 6:17 AM 04/15/2015 7:54 AM Care Teams Information Systems Security Manager Relationship Specialty Start Date End Date Clinic, No Pcp Or . PCP - General 02/26/22
--- OUTSIDE RECORDS SUMMARY | 2025-02-24 20:57 | XMS_ITS | Encounter Summary ---
Author Organization [facility] Address [address] [place] [address] Care Team Providers Care Airport Operations Crew Member Name Role Phone Ajay Dailey MD Primary Care Provider [phone] Esperanza Gatica MD Primary Care Provider + Esperanza Gatica MD Unavailable + Esperanza Gatica MD Unavailable + Esperanza Gatica MD Unavailable + Esperanza Gatica MD Unavailable [phone] Esperanza Gatica MD Unavailable + Esperanza Gatica MD Unavailable [phone] Jesús Orourke MD Unavailable Alfreda RayC Primary Care Provider + Alfreda Ray-Gallito Unavailable [phone] Katrin Orellana PA-C Unavailable Shanna Vang-C Unavailable [phone] Fransisco Eddy MD Unavailable [phone] Esperanza Gatica MD Unavailable [phone] Esperanza Gatica MD Unavailable [phone] Katrin Orellana PA-C Unavailable Cristina Hsieh [facility] Unavailable +[phone] Ray, Alfreda Liu PA-C Unavailable [phone] Cory Alfreda Liu PA-C Unavailable [phone] Cristina Hsieh [facility] Unavailable [phone] Dakota Tatum MD Unavailable Unava ilable Dakota Tatum MD Unavailable Unava ilable Srinivas Marie Unavailable [phone] Johanne Gutierrez RN Unavailable [phone] Linda Ambriz [facility] Unavailable [phone] Reason for Visit * Reason Onset Date Comments Refill Request 02/26/2011 Encounter Details Date Type Department Care Team (Late st Contact Info) Description 02/26/[address] [address] Alfa Marcelo MD [facility] [address] [place] [address] Refill Request Social History Tobacco Use Types Packs/Day Years Used Date Smoking Tobacco: Former Cigarettes Q uit: 06/21/1973 Smokeless Tobacco: Never Alcohol Use Standard Drinks/Week Comments Yes 0 (1 standard drink = 0.6 oz pur e alcohol) rarely Comments No Sex and Gender Information Value Date Recorded Sex Assigned at Female 08/17/2018 7:56 AM OYSTER SHUCKER Legal Sex Female 4:24 AM OYSTER SHUCKER Gender Identity Female 08/17/2018 7:56 AM OYSTER SHUCKER Sexual Orientation Straight 08/17/2018 7: 56 AM OYSTER SHUCKER documented as of this encounter Miscellaneous Notes * Telephone Encounter - Magi Smallwood - 02/26/2011 3:04 PM CDTMessage from [facility]: Original authorizing provider: Alfa Bradshaw would like a refill of the following medications: tramadol (ULTRAM) 50 MG tablet [Alfa Marcelo MD] Preferred pharmacy: [facility] Comment: Please note [address] Marcelo documented in this encounter Plan of Treatment Upcoming Encounters Date Type Department Care Team (Late st Contact Info) Description 06/28/2025 3:00 PM OYSTER SHUCKER Office Visit [facility] [address] [place] [phone] Fransisco Eddy MD [address] [place] [address] documented as of this encounter Visit Diagnoses Diagnosis DJD (degenerative joint disease) of knee Osteoarthrosis, unspecified whether generalized or localized, lower leg documented in this encounter Additional Health Concerns Infection Onset Date Last Indicated Resolved Time Rule Out COVID-19 05/08/2021 05/08/2021 05/09/2021 9:08 PM OYSTER SHUCKER documented as of this encounter Care Teams Airport Operations Crew Member Relationship Specialty Start Date End Date Ajya Dailey MD PCP - General Family Practice 01/29/11 10/12/11 Esperanza Gatica MD PCP - General Family Practice 10/13/11 12/29/21 [place] [address] [place] [address] PCP - Assigned PCP 12/05/17 08/23/18 Alfreda Ray PA-C [address] [place] [address] PCP - General Family Medicine 12/30/21 [place] [address] [place] [address] Assigned PCP 12/05/17 09/30/19 [place] [address] [place] [address] Assigned PCP 10/01/19 03/02/20 [place] [address] [place] [address] Assigned PCP 03/03/20 05/25/20 [place] [address] [place] [address] Assigned PCP 05/26/20 09/28/20 [place] [address] [place] [address] Assigned PCP 09/29/20 07/31/22 Jesú[place] [address] [place] [address] Assigned Musculoskeletal Provider 10/20/20 04/17/22 Alfreda Ray PA-C [address] [place] [address] [id number] Referring Physician Family Medicine 12/31/21 Katrin Orellana PA-C [address] [address] Physician Cps Team Lead Dermatology 12/31/21 Shanna Vang PA-C [address] [place] [address] Assigned Cancer Care Provider 01/10/22 Fransisco Eddy MD [address] [place] [address] Assigned Rheumatology Provider 05/09/22 [place] [address] [place] [address] Assigned Pain Medication Provider 06/29/22 09/04/22 [place] [address] [place] [address] Assigned PCP 08/15/22 08/28/22 Katrin Orellana PA-C [address] [place] [address] 577005 Assigned Surgical Provider 08/15/22 02/10/24 Cristina Hsieh [facility] [address] [place] [address] [place] [address] Pharmacist Pharmacist 09/07/22 Alfreda Ray PA-C [address] [place] [address] 888462 Assigned Pain Medication Provider 09/05/22 09/10/23 Alfreda Ray PA-C [address] [place] [address] [id number] Assigned PCP 08/29/22 Cristina Hsieh, [facility] [address] [address] Assigned MTM Pharmacist 09/26/22 Dakota Tatum MD [address] [address] Cardiovascular Disease 03/25/23 Dakota Tatum MD Assigned Heart and Vascular Provider 05/01/23 11/09/24 [place] [address] CELE GASTELUM, [address] [address] Assigned Musculoskeletal Provider 04/12/24 Johanne Gutierrez RN TIFFANIE Clinical Product Navigator Primary Care - CC 08/18/24 08/18/24 Linda Ambriz, [facility] Lead Skeet Operator 08/18/24 08/23/24 documented as of this encounter
--- OUTSIDE RECORDS SUMMARY | 2025-02-24 20:57 | XMS_ITS | Clinical Summary ---
Author Organization [facility] Address [address] [place] [address] Care Team Providers Care Offline Editor Name Role Phone Alfreda Ray PA-C Primary Care Provider + Alfreda Ray PA-C Unavailable [phone] Katrin Orellana PA-C Unavailable Shanna Vang PA-C Unavailable [phone] Fransisco Eddy MD Unavailable [phone] Cristina Hsieh [facility] Unavailable Alfreda Ray PA-C Unavailable [phone] Cristina Hsieh [facility] Unavailable [phone] Dakota Tatum MD Unavailable Unava ilSrinivas Yun DO Unavailable [phone] Allergies Active Allergy Reactions Criticality Noted Date Comments Codeine Low 08/11/2016 Other reaction(s): severe nausea Medications acetaminophen (TYLENOL) 500 MG tabletIndications: Primary osteoarthritis involving multiple joints Take 2 tablets (1,000 mg) by mouth 3 times daily as needed for pain 08/27/19 23 Active cyanocobalamin (VITAMIN B-12) 1000 MCG tablet Take 1,000 mcg by mouth daily Active predniSONE (DELTASONE) 5 MG tabletIndications: Polyarthralgia Take 1 tab daily for 90 days 90 tablet 1 12/20/19 Active Additional Information Patient not taking.Reported on 09/04/2024 atenolol (TENORMIN) 25 MG tabletIndications: 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 90 tablet 3 03/16/20 Active lisinopril-hydroch lorothiazide (ZESTORETIC) 10-12.5 MG tabletIndications: Benign hypertension with CKD (chronic kidney disease) stage III (H) Take 1 tablet by mouth daily. 90 tablet 3 03/16/20 24 Active Additional Information Patient not taking.Reported on 09/04/2024 simvastatin (ZOCOR) 20 MG tabletIndications: Hypercholesterolem ia Take 1 tablet (20 mg) by mouth at bedtime. 90 tablet 03/16/20 Active DULoxetine (CYMBALTA) 60 MG capsuleIndications :Primary osteoarthritis involving multiple joints Take 1 capsule (60 mg) by mouth daily (with dinner). 90 capsule 03/16/20 Active gabapentin (NEURONTIN) 300 MG capsuleIndications :Primary osteoarthritis involving multiple joints,Arthralgia, unspecified joint Take 2 capsules (600 mg) by mouth every morning AND 2 capsules (600 mg) daily (with lunch) AND 3 capsules (900 mg) every evening. 630 capsule 03/16/20 Active rivaroxaban ANTICOAGULANT (XARELTO) 10 MG TABS tabletIndications: Acute deep vein thrombosis (DVT) of femoral vein of left lower extremity (H),Family history of clotting disorder Take 1 tablet (10 mg) by mouth daily with food. 90 tablet 3 03/16/20 24 Active naltrexone (DEPADE/REVIA) 50 MG tabletIndications: Severe obesity (BMI 35.0-39.9) with comorbidity (H) Take 25 mg (half tablet) daily x 7 days then 50 mg (1 tablet) daily 90 tablet 1 03/20/20 24 Active valACYclovir (VALTREX) 500 MG tabletIndications: Recurrent cold sores Take 1 tablet (500 mg) by mouth daily. 90 tablet 3 06/08/20 24 Active lisinopril-hydroch lorothiazide (ZESTORETIC) 20-12.5 MG tablet Take 1 tablet by mouth daily at 2 pm. 08/22/19 25 Active potassium chloride ER (K-TAB/KLOR-CON) 10 MEQ CR tablet Take 10 mEq by mouth every 24 hours. 08/02/19 25 Active predniSONE (DELTASONE) 1 MG tabletIndications: Polyarthralgia TAKE 4 TABLETS BY MOUTH DAILY, TAPER PER 120 tablet 1 01/22/20 25 Active Active Problems Problem Noted Date Diagnosed Date Adverse effect of prednisone, sequela - weight g ain 03/16/2024 Severe obesity (BMI 35.0-39. 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 Fransisco Eddy @ [facility] - on Humira & hydroxychloroquine 08/27/2022 [...] Total Score(s): No flowsheet data found. Last [facility] website verification: Done 09/25/2019 [email or web address] Anxiety 04/13/2014 12/30/2021 HTN, goal below 140/90 [...] Encounters Date Type Department Care Team Description 02/15/[address] [place] [address] Alfreda Ray PA-C ANNUAL 01/26/2025 Telephone [facility] [address] [place] [address] No Ref-Primary, Physician Outreach (MTM 1st attempt ) 01/19/[address] [facility] Rheumatology [facility] [address] [facility] 3rd [place] [address] Cristina sHieh [facility] 01/19/[address] [facility] Rheumatology [facility] [address] [facility] [address] 3rd [place] [phone] Cristina Hsieh, [facility] Refill Request ( PREDNISONE 1 MG TABLET) 01/19/[address] [facility] Specialty [facility] [place] [address] [place] [address] [address] [place] [phone] Fransisco Eddy MD Medication Refill 12/03/[address] [phone] Alfreda Ray PA-C Medication Refill from Last 3 Months Immunizations Immunization Administration Dates Next Due COVID-19 12+ (MODERNA) 05/03/2023 COVID-19 12+ (Pfizer) 03/16/2024 COVID-19 MONOVALENT 12+ (Pfizer) 03/19/2021,03/0 10/2020,08/02/2020 COVID-19 Monovalent 12+ (Pfizer 2021) 09/29/2021 Flu, Unspecified 03/01/2019 Hepatitis A/B (Twinrix) 09/08/2023 Influenza (H1N1) 07/09/2009 Influenza (High Dose) Trival ent,PF (Fluzone) 03/16/2024,02/18/2022,02/20/2020,2017,04/08/2017,03/03/2016,04/08/2015,1 06/24/2012 Influenza (IIV3) PF 03/21/2012, 1,03/15/2010,2008,04/23/2008,05/03/2007 Influenza Vaccine 65+ (FLUAD) 03/06/2023 Influenza Vaccine 65+ (Fluzone HD) 03/06/2023,,02/27/2021 Influenza Vaccine >6 months,quad, PF 03/29/2014 Pneumo Conj 13-V (2010&after) 04/08/2015 Pneumococcal 23 valent 09/18/2008 RSV Vaccine (Arexvy) 05/03/2023 TD,PF 7+ (Tenivac) 04/08/2017 TDAP Vaccine (Adacel) 03/14/2007 Zoster recombinant adjuvante d (Shingrix) 02/23/2019,08/19/2018 Zoster vaccine, live 08/13/2015 Family History [...] re latives? Once a week 03/15/2024 Attends [employer] Services Not on file 03/15 Active Member of Clubs or Organizations Not on f ile 03/15/2024 Attends Club or Organization Meetings Not on anu e 03/15/2024 Marital Status Not on file 03/15/2024 PHQ-2 Answer Date Recorded PHQ-2 Score 0 03/16/2024 [facility] Occupat ional Health - Occupational Stress [...] Sex Assigned at Female 08/17/2018 7:56 AM [facility] [employer] Legal Sex Female 4:24 AM [facility] [employer] Gender Identity Female 08/17/2018 7:56 AM [employer] [employer] Sexual Orientation Straight 08/17/2018 7: 56 AM [facility] [employer] Last Filed Vital Signs Vital Sign Reading Time Taken Comments Blood Pressure 118/76 09/04/2024 1:05 PM CDT Pulse 60 09/04/2024 1:05 PM CDT Temperature 36.2 C (97.2 F) 09/04/2024 1:05 PM CDT Respiratory Rate 18 06/15/2024 4:35 PM [employer] Oxygen Saturation 100% 09/04/2024 1:05 PM CDT Inhaled Oxygen Concentration - - Weight 90.3 kg (199 lb) 09/04/2024 1:05 PM CDT Height 157.5 cm (5' 2) 05/04/2024 12:20 PM [employer] Body Mass Index 36.4 05/04/2024 12:20 PM [employer] Plan of Treatment Upcoming Encounters Date Type Department Care Team (Late st Contact Info) Description 06/28/2025 3:00 PM [facility] [employer] Office Visit [facility] Specialty [address] [place] [address] Fransisco Edyd MD [address] [place] [id number] Health Maintenance Due Date Last Done Comments CT COLONOGRAPHY 1940 FIT 1940 FLEX SIG 1940 sDNA (Cologuard) 1940 DEXA 10/01/2023 09/30/2020, 11/19, 09/04/2010, Additional history exists Medicare Annual MTM Pharmacist Visit (once per calendar year) 2024 11/24/2022 PHQ-2 (once per calendar year) 2024 03/16/2024, 12/13/2023, 03/10/2023, Additional history exists A1C 09/13/2024 03/16/2024, 02/20, 09/09/2022, Additional history exists COVID-19 VACCINE (8 - Pfizer risk season) 2025 03/16/2024, 05/03/2023, 04/22/2022, Additional history exists INFLUENZA VACCINE (#1) 2025 , 03/06/2023, 03/06/2023, Additional history exists ANNUAL REVIEW OF HM ORDERS 03/16/202503/16, 08/26/2022, 09/04/2021, Additional history exists CMP 03/16/2025 03/16/2024, 070 06/2023, 12/09/2023, Additional history exists FALL RISK ASSESSMENT 03/16/2025 03/16/2024, 03/10/2023, 03/05/2022, Additional history exists LIPID 03/16/2025 03/16/2024, 02/20, 05/07/2022, Additional history exists MEDICARE ANNUAL WELLNESS VISIT 03/16/2025 03/16/2024, 03/10/2023, 03/05/2022, Additional history exists MICROALBUMIN 03/16/2025 03/16/2024, 0 01/2023, 09/04/2021, Additional history exists VITAMIN B12 03/16/2025 03/16/2024, 02/20, 04/27/2022 CBC 08/07/2025 08/07/2024, 05/22, 03/16/2024, Additional history exists HEMOGLOBIN 08/07/2025 08/07/2024, 05/22, 03/16/2024, Additional history exists COLONOSCOPY 09/09/2026 09/09/2021, 0 12/2015, 10/11/2012, Additional history exists COLORECTAL CANCER SCREENING 09/09/2026 DTAP/TDAP/TD VACCINE (3 - Td or Tdap) 04/08/2027 04/08/2017, 03/14/2007 ADVANCE CARE PLANNING 03/16/2029 03/16/2024 , 12/06/2023, 03/19/2023, Additional history exists ZOSTER VACCINE Completed 02/23/2019, 03/0 06/2018, 08/13/2015 MAMMO SCREENING Discontinued 09/30/2020, 01/19, 11/30/2017, Additional history exists RSV VACCINE Completed 05/03/2023 URINALYSIS Completed 06/15/2024, 02/20, 02/09/2024, Additional history exists BMP Discontinued 08/07/2024, 05/22, 03/16/2024, Additional history exists PNEUMOCOCCAL VACCINE 50+ YEARS Completed 08/17/2024, 04/08/2015, 09/18/2008 HPV VACCINE (No Doses Required) Completed MENINGITIS VACCINE Aged Out No longer eligible based on patient's age to complete this topic Procedures Procedure Name Priority Date/Time Associated Diagnosis Comments CBC WITH PLATELETS Routine 08/07/2024 9: 00 AM [employer] [employer] Essential (primary) hypertension Cerebral infarction, unspecified (H) BASIC METABOLIC PANEL NO GLUCOSE (OUTREACH) Routine 08/07/2024 9:00 AM [employer] Essential (primary) hypertension Cerebral infarction, unspecified (H) UA MACROSCOPIC WITH REFLEX TO MICRO AND CULTURE Routine 06/15/2024 2:15 PM [employer] Dysuria ALBUMIN AND CREATININE WITH RATIO RANDOM URINE QUANTITATIVE Routine 03/16/2024 3:16 PM [...] COLONOSCOPY - HIM SCAN 08/26/2015 12:00 AM [employer] from Last 3 Months or Most Recently Relevant to Health Maintenance Results * (ABNORMAL) Basic Metabolic Panel No Glucose (OUTREACH) (08/07/2024 9:00 AM [employer]) Sodium 140 135 - 145 mmol/L 08/07/2024 2:27 PM [facility] Potassium 4.2 3.4 - 5.3 mmol/L 08/07/2024 2:27 PM [facility] Chloride 104 98 - 107 mmol/L 08/07/2024 2:27 PM [facility] Carbon Dioxide (CO2) 19(L) 22 - 29 mmol/L 08/07/2024 2:27 PM [facility] [employer] Anion Gap 17(H) 7 - 15 mmol/L 08/07/2024 2:27 PM [facility] Urea Nitrogen 19.6 8.0 - 23.0 mg/dL 08/07/2024 2:27 PM [facility] Creatinine 0.99(H) 0.51 - 0.95 mg/dL 08/07/2024 2:27 PM [facility] GFR Estimate 57(L) >60 mL/min/1.7 3m2 08/07/2024 2:27 PM [facility] Calcium 9.4 8.8 - 10.4 mg/dL 08/07/2024 2:27 PM [facility] Blood STRUCTURE OF RIGHT HAND / Unknown Venipuncture / Unknown 08/07/2024 9:00 AM [employer] 08/07/2024 12:37 PM [employer] Madhavi Ospina NP LAB - BLOOD ORDERABLES Final Result [facility] [place] [facility] [address] [facility], [address] [place] [address] * (ABNORMAL) CBC with platelets (08/07/2024 9:00 AM [employer]) WBC Count 5.1 4.0 - 11.0 10e3/uL 08/07/2024 2:15 PM [facility] RBC Count 3.56(L) 3.80 - 5.20 10e6/uL 08/07/2024 2:15 PM [facility] Hemoglobin 11.3(L) 11.7 - 15.7 g/dL 08/07/2024 2:15 PM [facility] Hematocrit 37.2 35.0 - 47.0 % 08/07/2024 2:15 PM [facility] MCV 105(H) 78 - 100 fL 08/07/2024 2:15 PM [facility] [employer] MCH 31.7 26.5 - 33.0 pg 08/07/2024 2:15 PM [facility] MCHC 30.4(L) 31.5 - 36.5 g/dL 08/07/2024 2:15 PM [facility] BIOLOG[facility] RDW 12.4 10.0 - 15.0 % 08/07/2024 2:15 PM [facility] BIOLOG[facility] Platelet Count 297 150 - 450 10e3/uL 08/07/2024 2:15 PM [facility]MI[facility] BIOLOGICAL [facility] Blood STRUCTURE OF RIGHT HAND / Unknown Venipuncture / Unknown 08/07/2024 9:00 AM [employer]ICAL 08/07/2024 12:37 PM [employer] Madhavi Ospina NURSING HOME PHYSICIAN LAB - BLOOD ORDERABLES Final Result [facility] [place] [facility] [address] [facility], [address] [place] [phone] * (ABNORMAL) UA Macroscopic with reflex to Microscopic and Culture - Clinic Collect (06/15/2024 2:15 PM [facility] [employer]) Color Urine Yellow Colorless, Straw, Light Yellow, Yellow 06/15/2024 2:28 PM [facility] Appearance Urine Clear Clear 06/15/20 2:28 PM [facility] Glucose Urine Negative Negative mg/dL 06/15/2024 2:28 PM [facility] Bilirubin Urine Small(A) Negative 2:28 PM [facility] Ketones Urine 15(A) Negative mg/dL 06/15/2024 2:28 PM [facility] Specific [place] Urine >=1.030 1.003 - 1.035 06/15/2024 2:28 PM [facility] Blood Urine Trace(A) Negative 06/15/2024 2:28 PM [facility] LAB[facility]ORY pH Urine 5.5 5.0 - 7.0 06/15/2024 2:28 PM [facility] Protein Albumin Urine 100(A) Negative mg/dL 06/15/2024 2:28 PM [facility] Urobilinogen Urine 0.2 0.2, 1.0 E.U./dL 06/15/2024 2:28 PM [facility] Nitrite Urine Negative Negative 06/15/2024 2:28 PM [facility] Leukocyte Esterase Urine Moderate(A) Negative 06/15/2024 2:28 PM [facility] LAB[facility]ORY Urine URINE SPECIMEN OBTAINED BY CLEAN CATCH PROCEDURE / Unknown Non-blood Collection / Unknown 06/15/2024 2:15 PM [employer] 06/15/2024 2:15 PM [employer] us Esteban Gant MD LAB - URINE ORDERABLES Final Res ult LABORATORY [facility] [address] [facility] Lab (no room number, 1st floor of clinic) [place] [address], [facility] * Albumin Random Urine Quantitative with [...] control, and institution of therapy with an rchemldleiv-bbuuxbvwpd-mtabzf (JUANCARLOS) inhibitor (if the patient can tolerate it). Urine URINE SPECIMEN / Unknown Non-blood Collection / Unknown 03/16/2024 3:16 PM CDT 03/16/2024 3:16 PM CDT us Alfreda Ray PA-C LAB - URINE ORDERABLES F inal Result [facility] [address] [facility], [address] [place] [phone] * (ABNORMAL) Lipid panel reflex to [...] BLOOD ORDERABLES F inal Result [facility] [place] [facility] [address] [facility], [address] [place] [address] * (ABNORMAL) HEMOGLOBIN A1C (03/16/2024 3:09 [...] - BLOOD ORDERABLES F inal Result LABORATORY [facility] [place] [facility] [address] [place] [address] Lab (no room number, 1st floor of clinic) [place] [address] * (ABNORMAL) Comprehensive metabolic panel (BMP + Alb, Alk Phos, ALT, AST, Total. Bili, TP) (03/16/2024 3:09 PM CDT) Pathologist [facility] Sodium 143 135 - 145 mmol/L 03/17/2024 [...] BLOOD ORDERABLES F inal Result [facility] [address] [facility], [address] [id number] * Vitamin B12 (03/16/2024 3:09 PM CDT) [facility] Vitamin B12 869 232 - 1,245 pg/mL 03/17/2024 7:42 PM CDT [facility] Blood BLOOD SPECIMEN / Unknown Venipuncture / Unknown 03/16/2024 3:09 PM CDT 03/16/2024 3:09 PM CDT Alfreda Ray PA-C LAB - BLOOD ORDERABLES F inal Result Performing Organization Address City/[facility] de Phone Number LABORATORY [facility] [address] [facility], [address] [phone] * DX Hip/Pelvis/Spine w Lateral (09/30/2020 12:30 PM CDT) Anatomical Region Laterality Modality Dexa Bone Mineral Den sity Narrative 10/04/2020 1:35 PM CDT BONE DENSITOMETRY [address] [address] 09/30/2020 PATIENT: Alexandria Bradshaw CHART: [id number] : 1940 AGE: [age] year old SEX: female REFERRING PROVIDER: Kelly Haley MD PROCEDURE: Bone density scanning was performed using DXA technology of the lumbar spine and hip. Scanning was performed on a ZPower scanner. Reporting is completed in the form [...] to another DXA performed on the same ZPower machine on 12/10/2014. LATERAL VERTEBRAL ASSESSMENT Procedure: Vertebral fracture assessment was performed in the lateral decubitus position using a ZPower densitometer. Indications for VFA: T-score of -1.0 [...] COLONOSCOPY - HIM SCAN (08/26/2015 12:00 AM [employer]) 08/26/2015 us Provider Outside PROCEDURES Final Result from Last 3 Months or Most Recently Relevant to Health Maintenance Insurance [address] MEDICARE ADVANTAGE [address] MEDICARE ADVANTAGE * Guarantor: Alexandria Bradshaw Account Type Relation to Patient Date of Phone Billing Address Medication Therapy Self 1940 [address] [place] [address] [place] [address] MEDICARE ADVANTAGE Advance Directives For more information, please contact: [phone] * Full Code (Latest Code Status on File) Date Activated Date Inactivated Comments 12/08/2021 8:37 PM 12/09/2021 3:06 PM All basic an d advanced life-sustaining interventions are performed as appropriate Question Answer Comments Code status determined by: Discussion with patie nt/ legal decision maker Care Teams Offline Editor Relationship Specialty Start Date End Date Alfreda Ray PA-C [address] [place] [phone] PCP - General Family Medicine 12/30/21 Alfreda Ray PA-C [address] [place] [address] [id number] Referring Physician Family Medicine 12/31/21 Katrin Orellana PA-C [address] [place] [address] [address] [place], [place] [address] Physician Analytical Data Miner Dermatology 12/31/21 Shanna Vang PA-C [address] [place] [address] [phone] Assigned Cancer Care Provider 01/10/22 Fransisco Eddy MD [address] [place] [address] [phone] Assigned Rheumatology Provider 05/09/22 Cristina Hsieh [facility] [address] [place] [address] LISBETH HRENANDEZ [id number] Pharmacist Pharmacist 09/07/22 Alfreda Ray PA-C [address] [place] [address] Assigned PCP 08/29/22 Cristina Hsieh, [facility] [address] [address] Assigned MTM Pharmacist 09/26/22 Dakota Tatum MD [address] [address] Cardiovascular Disease 03/25/23 [place] [address] [address] Assigned Musculoskeletal Provider 04/12/24
--- NOTE | 2025-02-24 21:07 | CT_ITS ---
Patient: CORRINA VALENZUELA Facility:?[facility] Patient ID:?[id number] Site Patient ID:?[id number]. Site :?1940 Study:?CT-Head W/O-02/24/2025 9:43:10 PM Ordering Physician:Sumanth Valentine Final Report: Indication : Confusion. Technique : CT of the brain without intravenous contrast. Comparison: CT head 02/07/2025. Findings: No acute blurring of the bautista-white differentiation. There is no intracranial hemorrhage. The ventricles are proportionate to the cerebral sulci. The 4th ventricle is midline. Basal cisterns appear patent. No abnormal extra-axial fluid collection identified. Mild parenchymal volume loss. There is moderate to severe patchy periventricular hypodensity, favored to represent chronic ischemic microvascular disease. There is no intracranial mass, mass effect or midline shift identified. No depressed calvarial fracture. Impression: 1. No acute intracranial process. 2. 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 Please note that all CT scans at this facility use dose modulation, iterative reconstruction, and/or weight-based dosing when appropriate to reduce radiation dose to as low as reasonably achievable. Dictated by Deep Mccarty MD @ 02/24/2025 9:58:40 PM Signed by:?Deep Mccarty MD @02/24/2025 9:58:40 PM (Electronic Signature)
--- NOTE | 2025-02-24 21:14 | ED.GENADULT ---
HPI - General Adult General Chief complaint: Altered Mental Status Stated complaint: uti Time Seen by Provider: 02/24/25 20:52 History of Present Illness HPI narrative: Patient is an 84-year-old woman who presents with mental status changes over the last several days. She has become progressively weak. She has had no fevers no chills no night sweats. Today family is unable to get her up and she is unable to have a conversation remaining only oriented to self. She has had no recent trauma. She denies any pain. She denies any fevers chills nausea no vomiting. She states she has been eating and drinking but only to limited extent. She has had no other related symptoms. Patient has had frequent UTIs with mental status changes in the past. Related Data Home Medications ?Medication ?Instructions ?Recorded ?Confirmed atenolol 25 mg tablet 25 mg PO DAILY 06/22/24 02/09/25 prednisone 1 mg tablet 1 mg PO DAILY 06/30/24 02/09/25 gabapentin 300 mg capsule 300 - 600 mg PO BID 07/05/24 02/09/25 acetaminophen 500 mg tablet See Rx Instructions PO Q4-6H PRN 07/14/24 02/09/25 duloxetine 30 mg capsule,delayed 30 mg PO DAILY 01/18/25 02/09/25 release colestipol 1 gram tablet 1 g PO BID 02/07/25 02/09/25 loperamide 2 mg capsule 2 mg PO DAILY 02/07/25 02/09/25 Previous Rx's ?Medication ?Instructions ?Recorded rivaroxaban 10 mg tablet (Xarelto) 10 mg PO DAILY #90 tabs 12/05/24 cholestyramine 4 gram oral powder 4 g PO DAILY #210 grams 01/19/25 (Cholestyramine Light) simvastatin 20 mg tablet 20 mg PO HS #90 tabs 02/02/25 cefpodoxime 100 mg tablet 100 mg PO BID #10 tabs 02/08/25 lisinopril 20 mg tablet 20 mg PO DAILY #30 tabs 02/08/25 Allergies Allergy/AdvReac Type Severity Reaction Status Date / Time codeine Allergy Mild Gastrointestinal Verified 02/09/25 15:08 Upset [facility] Medical History Venous insufficiency (chronic) (peripheral) ?I87.2 - Venous insufficiency (chronic) (peripheral) (ICD-10) History of diarrhea ?Z87.898 - Personal history of other specified conditions (ICD-10) Hyperlipidemia ?E78.5 - Hyperlipidemia, unspecified (ICD-10) DVT (deep venous thrombosis) ?I82.409 - Acute embolism and thrombosis of unspecified deep veins of unspecified lower extremity (ICD-10) Asymptomatic bacteriuria ?R82.71 - Bacteriuria (ICD-10) Rheumatoid arthritis ?M06.9 - Rheumatoid arthritis, unspecified (ICD-10) COVID ?U07.1 - COVID-19 (ICD-10) Impaired mobility ?Z74.09 - Other reduced mobility (ICD-10) Cognitive impairment ?R41.89 - Other symptoms and signs involving cognitive functions and awareness (ICD-10) Stroke ?I63.9 - Cerebral infarction, unspecified (ICD-10) Osteopenia ?M85.80 - Other specified disorders of bone density and structure, unspecified site (ICD-10) Urge incontinence ?N39.41 - Urge incontinence (ICD-10) High cholesterol ?E78.00 - Pure hypercholesterolemia, unspecified (ICD-10) Prediabetes ?R73.03 - Prediabetes (ICD-10) Benign hypertension with CKD (chronic kidney disease) stage III ?I12.9 - Hypertensive chronic kidney disease with stage 1 through stage 4 chronic kidney disease, or unspecified chronic kidney disease (ICD-10) ?N18.30 - Chronic kidney disease, stage 3 unspecified (ICD-10) Obesity (BMI 30-39.9) ?E66.9 - Obesity, unspecified (ICD-10) Colon cancer ?C18.9 - Malignant neoplasm of colon, unspecified (ICD-10) Surgical History History of arthroscopy of right knee ?Z98.890 - Other specified postprocedural states (ICD-10) History of arthroscopy of left shoulder ?Z98.890 - Other specified postprocedural states (ICD-10) History of appendectomy ?Z90.49 - Acquired absence of other specified parts of digestive tract (ICD-10) History of cholecystectomy ?Z90.49 - Acquired absence of other specified parts of digestive tract (ICD-10) Family History Brother Pulmonary embolism Melanoma Liver cancer Father Prostate cancer Lung cancer Mother Heart disease Social History Narrative: Patient lives independently with her in [place], son Jace is named as primary decision maker as of 01/17/25. Code status is DNR. is healthcare power of commercial attorney. Remote history of minimal smoking. Rarely drinks alcohol. What is your current living situation?: I presently have a place to live Problems where you live: no known problems Problems where you live details: none In the past 12 months, utilities in danger of being shut off: no In past 12 months, lack of transportation kept you from medical appts, meetings, work, or getting things needed for daily living: no In the past 12 mos, have been you worried that your food would run out before you had money to buy more?: never true In the past 12 mos, the food you bought just didn't last and you didn't have money to buy more?: never true Highest level of school completed/degree received: some college, no degree Smoking Status: Former smoker What tobacco products do you use: cigarettes Years smoked: 3 Smoking quit date/years: >15 years ago Do you use any of these nicotine containing products: None Nicotine containing products detail: Back when I was 19 years old. Second hand tobacco smoke exposure: No How often do you have a drink containing alcohol: 2-4 times a month Alcohol type: hard liquor How many standard drinks containing alcohol do you have on a typical day: 1 or 2 How often do you have six or more drinks on one occasion: Never AUDIT-C Alcohol total score: 2 Non-prescribed substance use: denies use Caffeine: Yes (coffww) How often does anyone, including family, friends and others, physically hurt you: never How often does anyone, including family, friends and others, insult or talk down to you: never How often does anyone, including family, friends and others, threaten you with harm: never How often does anyone, including family, friends and others, scream or curse at you: never service: No Exam Narrative: Exam Narrative: EXAM GENERAL: Patient appears comfortable and well. EYES: No scleral icterus. LYMPH: No supraclavicular or cervical lymphadenopathy. SKIN: Visible skin seen during exam normal or with benign process only. EXT: No dependent lower extremity pedal edema. HEART: Regular rate and rhythm with no murmurs, rubs, or gallops. LUNGS: Clear to auscultation bilaterally with no crackles or wheezes. ABD: Soft, non tender, non distended. PSYCH: Good eye contact, speech is not pressured. Const: Vital Signs, click to edit/add: Vital Signs - 24 hr 02/24/25 20:55 02/24/25 22:14 02/24/25 23:26 Temperature 98.5 F 98.8 F Pulse Rate [Left P ulse Oximeter] 61 70 70 Respiratory Rate 20 18 20 Blood Pressure [Ri ght Upper Arm] 199/89 H 194/80 H Pulse Oximetry 92 95 97 Oxygen Delivery Me thod Room Air Room Air Room Air Course Course ED Course: Patient seen examined. Blood cultures lactate procalcitonin CBC comprehensive metabolic panel UA head CT pending. 1 L normal saline given. Vital Signs Vital signs: Initial Vital Signs Temperature 98.5 F 02/24/25 20:55 Temperature Source Temporal Artery Scan 02/24/25 20:55 Pulse Rate 61 02/24/25 20:55 Respiratory Rate 20 02/24/25 20:55 Blood Pressure 199/89 H 02/24/25 20:55 Blood Pressure Mean 125 H 02/24/25 20:55 Blood Pressure Position Semi-Fowlers 02/24/25 20:55 Pulse Oximetry 92 02/24/25 20:55 Oxygen Delivery Method Room Air 02/24/25 20:55 Vital Signs Temperature 98.5 F 02/24/25 20:55 Pulse Rate 61 02/24/25 20:55 Respiratory Rate 20 02/24/25 20:55 Blood Pressure 199/89 H 02/24/25 20:55 Pulse Oximetry 92 02/24/25 20:55 Oxygen Delivery Method Room Air 02/24/25 20:55 Temperature 98.8 F 02/24/25 23:26 Pulse Rate 70 02/24/25 23:26 Respiratory Rate 20 02/24/25 23:26 Blood Pressure 194/80 H 02/24/25 22:14 Pulse Oximetry 97 02/24/25 23:26 Oxygen Delivery Method Room Air 09/06/25 23:26 Medications Administered Medications: Discontinued Medications Generic Name Dose Route Start Last Admin Trade Name Gerson PRN Reason Stop Dose Admin Acetaminophen 650 mg 02/24/25 23:02 02/25/25 00:12 Acetaminophen 325 Mg Tablet PO 02/24/25 23:03 Not Given ONCE ONE Acetaminophen 1,000 mg 02/24/25 23:03 02/24/25 23:27 Acetaminophen 500 Mg Tablet PO 02/24/25 23:04 1,000 mg ONCE ONE Administration Sodium Chloride 1,000 mls @ 1,000 mls/hr 02/24/25 21:08 02/24/25 23:20 0.9 % Sodium Chloride 1000 Ml IV 02/24/25 22:07 Infused .Q1H JOSUE Infusion Piperacillin Sod/Tazobactam 100 mls @ 200 mls/hr 02/24/25 22:55 02/25/25 00:12 Sod 3.375 gm/ Sodium Chloride IVPB 02/24/25 22:56 Infused ONCE ONE Infusion Medical Decision Making MDM Narrative Medical decision making narrative: Patient is a 84-year-old woman who presents with weakness and acute delirium. Did question the family about underlying dementia but they are very adamant that there is no underlying dementia. I did review the chart and it appears the patient has had difficulties with mental status and cognition for some time. In any case is been a change and usually when there is a change she has a urinary infection. She does not have a urinary infection at this time in her viral serologies are all negative. Laboratory studies are stable. Patient is on room air. Head CT is without acute abnormality and chest x-ray shows potential involving pneumonia. At this time I did treat the patient with Zosyn plus Zithromax. Cultures are pending. Care is transferred to the hospitalist service. Lab Data Labs: Lab Results 02/24/25 02/24/25 02/24/25 Range/Units 21:09 22:43 23:25 WBC 5.62 (4.50-11.00) K/uL RBC 3.98 L (4.00-5.20) m/uL Hgb 12.6 (12.0-16.0) gm/dL Hct 38.5 (33.0-51.0) % MCV 97 (80-100) fL MCH 32 (26-34) pg MCHC 33 (32-36) gm/dL RDW Coeff of [place]an 12.9 (11.5-15.5) % Plt Count 198 (140-440) K/uL Neut % (Auto) 66.2 (42.0-72.0) % Lymph % (Auto) 22.1 (20-44) % [place] % (Auto) 8.7 (0.0-11.0) % Eos % (Auto) 1.6 (0.0-7.0) % Baso % (Auto) 0.5 (0.0-3.0) % Neut # (Auto) 3.72 (1.7-7.0) K/uL Lymph # (Auto) 1.24 (0.90-2.90) K/uL [place] # (Auto) 0.50 (0.00-0.90) K/UL Eos # (Auto) 0.09 (0.00-0.50) K/uL Baso # (Auto) 0.03 (0.00-0.30) K/uL Abs Immat Gran (auto) 0.05 (0.00-0.30) K/uL Imm/Tot Granulo (auto) 0.9 % Sodium 137 (135-149) mmol/L Potassium 4.0 (3.6-5.1) mmol/L Chloride 106 (96-114) mmol/L Carbon Dioxide 23 (20-32) mmol/L Anion Gap 8 (7-15) mEq/L BUN 17 (7-30) mg/dL Creatinine 0.9 (0.5-1.5) mg/dL Estimated GFR 64 ml/min Glucose 105 (60-115) mg/dL Lactate 1.6 (0.5-1.9) mmol/L Calcium 9.2 (8.4-10.6) mg/dL Total Bilirubin 0.7 (0.1-1.5) mg/dL AST 21 (12-35) U/L ALT 13 (4-35) U/L Alkaline Phosphatase 82 (40-150) U/L Troponin I 0.02 (0.01-0.04) ng/mL Total Protein 6.6 (6.0-8.3) g/dL Albumin 3.9 (3.3-5.0) g/dL Procalcitonin 0.05 (<0.50) ng/mL Urine Color Yellow (Yellow) Urine Appearance Clear (Clear) Urine pH 6.0 (5.0-8.5) Ur Specific [place] 1.015 (1.000-1.030) Urine Protein Negative (Negative) Urine Glucose (UA) Negative (Negative) Urine Ketones Trace A (Negative) Urine Blood Trace-intact A (Negative) Urine Nitrite Negative (Negative) Urine Bilirubin Negative (Negative) Urine Urobilinogen 0.2 (0.2-1.0) Ur Leukocyte Esterase Negative (Negative) Urine RBC 0-2 (0-2) Urine WBC 0-2 (0-5) Ur Squamous Epith Cells None (None-Few) Urine Bacteria None (None) SARS-CoV-2 (PCR) Negative SARS-CoV-2 (Negative) Influenza Type A (PCR) Negative PCR FLU A (Negative) Influenza Type B (PCR) Negative PCR FLU B (Negative) RSV (PCR) Negative PCR RSV (Negative) Discharge Plan Discharge Clinical Impression: Delirium Patient Disposition: Admitted As Inpatient Condition: Stable Activity Level: Other Discharge Diet: Other
[2025-02-24 22:14] VITALS: BP 194/80; PULSE 70; RESP 18; O2SAT 95
[2025-02-24 22:56] LABS: Lactate* 1.6 mmol/L (0.5-1.9)
[2025-02-24] MEDS: PIPERACILLIN/TAZOBACTAM 3.375 GM in 0.9 % SODIUM CHLORIDE Mini-bag 100 ML IVPB (23:06)
--- NOTE | 2025-02-24 23:24 | CRLHL7_ITS ---
For Patients: As a result of the Century Cures Act, medical imaging exams and procedure reports are released immediately into your electronic medical record. You may view this report before your referring provider. If you have questions, please contact your health care provider. Indication: Weakness. Technique: Chest 1 view. Comparison: Chest and rib radiographs 07/28/2024. Findings/Impression: The cardiac silhouette is magnified. There is pulmonary vascular congestion and mild interstitial pulmonary edema. Patchy bibasilar airspace opacification may be related to edema, however developing infectious process not excluded in the appropriate clinical context. No definite pleural effusion. No pneumothorax. No acute osseous abnormality. Dictated by Srinivas Irizarry MD @ 02/24/2025 11:57:41 PM (Electronically Signed)
[2025-02-24 23:26] VITALS: PULSE 70; RESP 20; TEMP 37.1; O2SAT 97
[2025-02-24] MEDS: ACETAMINOPHEN 500 MG TABLET 1000 MG PO (23:27)
[2025-02-24 23:34] LABS: Hematocrit* 38.5 % (33.0-51.0); Hemoglobin* 12.6 gm/dL (12.0-16.0); Immature Granulocytes Abs Auto 0.05 K/uL (0.00-0.30); Immature Granulocytes Pct Auto 0.9 %; Lymphocytes Absolute Auto 1.24 K/uL (0.90-2.90); Mean Corpuscular HGB Conc 33 gm/dL (32-36); Mean Corpuscular Hemoglobin 32 pg (26-34); Mean Corpuscular Volume 97 fL (80-100); RDW Coefficient of Variation % 12.9 % (11.5-15.5); Red Blood Count* 3.98 m/uL (4.00-5.20); White Blood Count* 5.62 K/uL (4.50-11.00)
[2025-02-24 23:36] LABS: Slide Review Reflex No
[2025-02-24 23:47] LABS: Potassium* 4.0 mmol/L (3.6-5.1); Sodium* 137 mmol/L (135-149)
[2025-02-24 23:48] LABS: Alanine Aminotransferase* 13 U/L (4-35); Albumin* 3.9 g/dL (3.3-5.0); Alkaline Phosphatase* 82 U/L (40-150); Anion Gap 8 mEq/L (7-15); Aspartate Amino Transferase* 21 U/L (12-35); Bilirubin Total* 0.7 mg/dL (0.1-1.5); Blood Urea Nitrogen* 17 mg/dL (7-30); Calcium* 9.2 mg/dL (8.4-10.6); Carbon Dioxide* 23 mmol/L (20-32); Chloride* 106 mmol/L (96-114); Creatinine* 0.9 mg/dL (0.5-1.5); Estimated Glomerular Filt Rate 64 ml/min; Glucose* 105 mg/dL (60-115); Procalcitonin* 0.05 ng/mL (<0.50); Total Protein* 6.6 g/dL (6.0-8.3)
[2025-02-25] VITALS (17 sets, daily range): BP systolic 137–186; BP diastolic 74–86; PULSE 59–100; RESP 14–20; TEMP 36.6–37.6; O2SAT 88–97; BMI 35.3
[2025-02-25 00:11] LABS: Appearance Urine Clear (Clear)
[2025-02-25 00:30] LABS: PCR FLU A Negative PCR FLU A (Negative); PCR FLU B Negative PCR FLU B (Negative); PCR RSV Negative PCR RSV (Negative); SARS PCR* Negative SARS-CoV-2 (Negative)
[2025-02-25] MEDS: AZITHROMYCIN 500 MG in 0.9 % SODIUM CHLORIDE 250 ml 250 ML 255 MG IVPB (01:04)
[2025-02-25 01:46] LABS: NT Pro B Type NatriureticPept* 2200 pg/mL (See Note)
--- NOTE | 2025-02-25 02:21 | W.PM.TELEH&P ---
Telehealth- H&P: HPI History of Present Illness Date Seen: 02/25/25 Chief complaint: uti Narrative: Aelxandria Bradshaw is seen as an Interactive Telehealth visit. 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 The patient has been feeling unwell for about 3 days. She denies any fevers or chills. She reportsed reported having diffuse myalgias and a frontal headache. She did not have any neck stiffness. She did have some cramping and lower abdominal pain. She has not had any diarrhea. She has not had any dysuria. She has not had any chest pain or shortness of breath. On the day of admission she was doing worse overall with worsening weakness. She had worsening word finding difficulty, per family who is at bedside and provided history she could say few words at a time, they did not always make sense and mostly she was trying to ask for things. The patient's daughter said later in the evening she had some difficulty forming words/slurred speech. At no time did she have any facial droop or other focal deficits noted by the patient or her family. The patient is alert to self, speaks slowly but answers questions appropriately. Of note there have been some recent medication changes. Patient was admitted for orthostatic hypotension thought to be related to dehydration, diuretics were decreased, gabapentin was also decreased, weaned down to 1 capsule daily from 3 capsules a day with the goal to taper off. She was also put on colestipol for diarrhea which has been helpful. In the ER she underwent a CT of the head which showed no acute bleed. Official read is pending. She did not have any leukocytosis. She did have a significant hypertension with a systolic blood pressure of 194/80. In the past she reportedly had confusion in the setting of urinary tract infection, UA did not show any obvious signs of infection. Patient's procalcitonin was negative, her proBNP was elevated at over 2000. Chest x-ray showed some diffuse interpositional opacities can concerning for atypical pneumonia versus fluid. Review of Systems Status of ROS: Reports: 10 or more systems reviewed and unremarkable except as noted in History and below [facility] Medical History Venous insufficiency (chronic) (peripheral) ?I87.2 - Venous insufficiency (chronic) (peripheral) (ICD-10) History of diarrhea ?Z87.898 - Personal history of other specified conditions (ICD-10) Hyperlipidemia ?E78.5 - Hyperlipidemia, unspecified (ICD-10) DVT (deep venous thrombosis) ?I82.409 - Acute embolism and thrombosis of unspecified deep veins of unspecified lower extremity (ICD-10) Asymptomatic bacteriuria ?R82.71 - Bacteriuria (ICD-10) Rheumatoid arthritis ?M06.9 - Rheumatoid arthritis, unspecified (ICD-10) COVID ?U07.1 - COVID-19 (ICD-10) Impaired mobility ?Z74.09 - Other reduced mobility (ICD-10) Cognitive impairment ?R41.89 - Other symptoms and signs involving cognitive functions and awareness (ICD-10) Stroke ?I63.9 - Cerebral infarction, unspecified (ICD-10) Osteopenia ?M85.80 - Other specified disorders of bone density and structure, unspecified site (ICD-10) Urge incontinence ?N39.41 - Urge incontinence (ICD-10) High cholesterol ?E78.00 - Pure hypercholesterolemia, unspecified (ICD-10) Prediabetes ?R73.03 - Prediabetes (ICD-10) Benign hypertension with CKD (chronic kidney disease) stage III ?I12.9 - Hypertensive chronic kidney disease with stage 1 through stage 4 chronic kidney disease, or unspecified chronic kidney disease (ICD-10) ?N18.30 - Chronic kidney disease, stage 3 unspecified (ICD-10) Obesity (BMI 30-39.9) ?E66.9 - Obesity, unspecified (ICD-10) Colon cancer ?C18.9 - Malignant neoplasm of colon, unspecified (ICD-10) Surgical History History of arthroscopy of right knee ?Z98.890 - Other specified postprocedural states (ICD-10) History of arthroscopy of left shoulder ?Z98.890 - Other specified postprocedural states (ICD-10) History of appendectomy ?Z90.49 - Acquired absence of other specified parts of digestive tract (ICD-10) History of cholecystectomy ?Z90.49 - Acquired absence of other specified parts of digestive tract (ICD-10) Family History Brother Pulmonary embolism Melanoma Liver cancer Father Prostate cancer Lung cancer Mother Heart disease Social History Narrative: Patient lives independently with her in [place], son Jace is named as primary decision maker as of 01/17/25. Code status is DNR. is healthcare power of civil attorney. Remote history of minimal smoking. Rarely drinks alcohol. What is your current living situation?: I presently have a place to live Problems where you live: no known problems Problems where you live details: none In the past 12 months, utilities in danger of being shut off: no In past 12 months, lack of transportation kept you from medical appts, meetings, work, or getting things needed for daily living: no In the past 12 mos, have been you worried that your food would run out before you had money to buy more?: never true In the past 12 mos, the food you bought just didn't last and you didn't have money to buy more?: never true Highest level of school completed/degree received: some college, no degree Smoking Status: Former smoker What tobacco products do you use: cigarettes Years smoked: 3 Smoking quit date/years: >15 years ago Do you use any of these nicotine containing products: None Nicotine containing products detail: Back when I was 19 years old. Second hand tobacco smoke exposure: No How often do you have a drink containing alcohol: 2-4 times a month Alcohol type: hard liquor How many standard drinks containing alcohol do you have on a typical day: 1 or 2 How often do you have six or more drinks on one occasion: Never AUDIT-C Alcohol total score: 2 Non-prescribed substance use: denies use Caffeine: Yes (coffww) How often does anyone, including family, friends and others, physically hurt you: never How often does anyone, including family, friends and others, insult or talk down to you: never How often does anyone, including family, friends and others, threaten you with harm: never How often does anyone, including family, friends and others, scream or curse at you: never service: No Meds Home Medications and Allergies Home Medications ?Medication ?Instructions ?Recorded ?Confirmed ?Type atenolol 25 mg tablet 25 mg PO DAILY 06/22/24 02/09/25 History prednisone 1 mg tablet 1 mg PO DAILY 06/30/24 02/09/25 History gabapentin 300 mg capsule 300 - 600 mg PO BID 07/05/24 02/09/25 History acetaminophen 500 mg tablet See Rx Instructions PO Q4-6H PRN 07/14/24 02/09/25 History rivaroxaban 10 mg tablet (Xarelto) 10 mg PO DAILY #90 tabs 12/05/24 02/09/25 Rx duloxetine 30 mg capsule,delayed 30 mg PO DAILY 01/18/25 02/09/25 History release cholestyramine 4 gram oral powder 4 g PO DAILY #210 grams 01/19/25 02/09/25 Rx (Cholestyramine Light) simvastatin 20 mg tablet 20 mg PO HS #90 tabs 02/02/25 02/09/25 Rx colestipol 1 gram tablet 1 g PO BID 02/07/25 02/09/25 History loperamide 2 mg capsule 2 mg PO DAILY 02/07/25 02/09/25 History cefpodoxime 100 mg tablet 100 mg PO BID #10 tabs 02/08/25 02/09/25 Rx lisinopril 20 mg tablet 20 mg PO DAILY #30 tabs 02/08/25 02/09/25 Rx Allergies Allergy/AdvReac Type Severity Reaction Status Date / Time codeine Allergy Mild Gastrointestinal Verified 02/09/25 15:08 Upset Exam Narrative Exam Narrative: GENERAL: vital signs reviewed, well developed and nourished, in no distress HEENT: pupils are equal and round, extraocular movements are grossly within normal limits and oral mucosa is moist. NECK: Supple without lymphadenopathy or thyromegaly according to nursing staff examination observation HEART: Regular rate and rhythm without any rubs, murmurs or gallops. LUNGS: Clear to auscultation bilaterally with good air movement throughout ABDOMEN: Observation from nurse assisted exam, abdomen appears soft, nontender, EXTREMITIES: Generalized weakness. No focal strength deficit is observed SKIN: Observed warm and dry with color normal NEURO: Alert, awake and oriented. Answers all questions appropriately. No focal neuro deficits are noted. Cranial nerves II through XII grossly intact. Strength in upper and lower extremities generally decreased but no focal weakness. No facial droop. Speech is fluent but slow PSYCH: Affect normal, slightly confused Const Vital Signs, click to edit/add: Vital Signs - 24 hr 02/24/25 20:55 02/24/25 22:14 02/24/25 23:26 Temperature 98.5 F 98.8 F Pulse Rate [Left Pulse Oximeter] 61 70 70 Respiratory Rate 20 18 20 Blood Pressure [Right Upper Arm] 199/89 H 194/80 H Pulse Oximetry 92 95 97 Oxygen Delivery Method Room Air Room Air Room Air Hospitalist - H&P: Result Labs Labs: Short CBC 02/24/25 Range/Units 22:43 WBC 5.62 (4.50-11.00) K/uL Hgb 12.6 (12.0-16.0) gm/dL Hct 38.5 (33.0-51.0) % Plt Count 198 (140-440) K/uL BMP 02/24/25 22:43 Sodium 137 Potassium 4.0 Chloride 106 Carbon Dioxide 23 BUN 17 Creatinine 0.9 Glucose 105 Calcium 9.2 Cardiac Enzymes 02/24/25 Range/Units 22:43 Troponin I 0.02 (0.01-0.04) ng/mL Liver Function 02/24/25 Range/Units 22:43 Total Bilirubin 0.7 (0.1-1.5) mg/dL AST 21 (12-35) U/L ALT 13 (4-35) U/L Alkaline Phosphatase 82 (40-150) U/L Albumin 3.9 (3.3-5.0) g/dL Urine 02/24/25 Range/Units 21:09 Urine Color Yellow (Yellow) Urine Appearance Clear (Clear) Urine pH 6.0 (5.0-8.5) Ur Specific Perry 1.015 (1.000-1.030) Urine Protein Negative (Negative) Urine Glucose (UA) Negative (Negative) Assessment and Plan Assessment and plan (1) Metabolic encephalopathy: Status: Acute (2) Word finding difficulty: Status: Acute (3) Bilateral pneumonia: Status: Acute (4) Rheumatoid arthritis: Problem comment: - follows with Dr. Fransisco Eddy through [facility] - on Prednisone 1mg daily, Cymbalta, Neurontin Status: Chronic (5) Hyperlipidemia: Status: Acute (6) Impaired mobility: Problem comment: Combination of factors including generalized weakness and deconditioning, poor balance but also poor motor planning, not able to use a walker well. It appears poor cognitive function is contributing as much as other factors to impaired mobility. Family has hired someone to be with her during the day. Status: Acute (7) Cognitive impairment: Problem comment: [place] score of 16 on 07/30/2024. has arranged for someone to be with her during the day while he is at work Status: Acute (8) Benign hypertension with CKD (chronic kidney disease) stage III: Status: Acute Plan Acute metabolic encephalopathy Word finding difficulty Suspect acute viral illness causing encephalopathy Negative procalcitonin White count was normal UA without signs of infection Mild headache without any neck stiffness Symptoms consistent with a viral illness with myalgias, headache Due to word finding difficulty with possible slurred speech I do think getting a CTA head and neck and MRI brain would be helpful Permissive hypertension for possible stroke OT/PT/speech Patient is already on Xarelto so she is not a candidate for thrombolytics Monitor on telemetry Will also check a tickborne panel Bilateral pneumonia Interstitial opacities Will also check a tickborne panel Mild headache without any neck stiffness Suspect viral pneumonia but given acute illness with encephalopathy will treat for possible bacterial pneumonia Follow-up blood cultures Ceftriaxone and doxycycline Rheumatoid arthritis On low-dose prednisone which can be continued once verified Hypertension Hold antihypertensives, plan for permissive hypertension CKD stage II-III Creatinine 0.9 which is around baseline Mild cognitive impairment Prior MoCA of 16, high risk for delirium with acute illness History of VTE On Xarelto which will be continued, will not add aspirin in the setting of Xarelto use Prior to admission home medications that were felt to be needed immediately have been ordered. The remainder of the home medications will await pharmacy reconciliation and will be ordered by the attending provider in the a.m. Telehealth Visit: Today's History and Physical is provided via interactive telehealth by Dr. Max Londono MD. Patient is located at [facility]. Provider is located at [facility]. Nursing staff assisted with the patient's exam. The visit being done today meets criteria for a telehealth visit and the patient or patients parent/guardian is aware the visit is a telehealth visit. Camera Start Time: 150 Camera End Time: 209 Medical Complexity: High ~~~~~~~~~~~~~~~~ Dr. Max Londono Telehealth: Statement Statement Telehealth Visit: Today's History and Physical is provided via interactive telehealth by Max Londono MD.? Patient is located at [facility].? Provider is located at [facility].? Nursing staff assisted with the patient's exam. The visit being done today meets criteria for a telehealth visit and the patient or patient?s parent/guardian is aware the visit is a telehealth visit. Camera Start Time: 01:50 Camera End Time: 02:09
[2025-02-25] MEDS: cefTRIAXone 1 GM in 0.9 % SODIUM CHLORIDE Mini-bag 100 ML IVPB (04:46)
--- NOTE | 2025-02-25 07:15 | PC.NURSE ---
The patient arrived to the floor via bed from the ED around 0145. Immediate evidence of urinary incontinence was found. The patient was cleaned, gown changed, and a pure wick put in place. Inspection of their IV site found the surrounding tissue to be a deep red while slightly puffy. Infiltration suspected. The IV was removed and replaced. The patient later removed this new IV and so a second replacement was put in place. Their admitting doctor was contacted to alert them to the loss of IV medication being given at the time; no new orders received. Mentation has been very poor. Alert but oriented only to their name. Often tears up but at other times laughs. Accessing the patient?s purewick and the area below her gown later in the morning caused her anger and she became irritable. This irritation soon went away. Oncoming nurse notified of risk of violence. Telebox has shown a NSR at most times but at 0520 I caught a six beat run of SVT. Abnormal 12-Lead scanned into file and made available to both [facility] doctor and the oncoming hospitalist. The patient?s skin is very sensitive and she winces in pain with sticker removals, blood draws, and when taking blood pressures. Does not appear to be able to retain why she is in the hospital and has needed to be reoriented on most every visit.?
--- NOTE | 2025-02-25 07:24 | P.IMPN_ITS ---
Assessment and Plan Assessment and plan (1) Stroke: Problem comment: Patient presents February 2025 with profound aphasia likely due to a new stroke. MRI pending Beginning of June [address] scan which had abnormality in the right frontal lobe. Outpatient MRI done the day prior to admission which shows that this was an old stroke. MRI also shows other areas of small-vessel ischemic changes and lacunar infarct. Likely contributing to poor balance and weakness. Status: Acute (2) Expressive aphasia: Problem comment: Likely due to new stroke. Has had some confusion with previous illnesses but not ever had this degree of aphasia. Status: Acute (3) Metabolic encephalopathy: Problem comment: Concern for concomitant metabolic encephalopathy. Probably due to stroke. Concern for infection such as UTI or pneumonia. These do not appear to be present at this time as an explanation for metabolic encephalopathy. Continue to monitor. Status: Acute (4) Heart failure with preserved ejection fraction: Problem comment: On admission patient appeared to have heart failure with pulmonary edema. At that time also had marked hypertension. Recently diuretic and blood pressure medicines have been stopped or reduced possibly contributing to this. Marked hypertension may be from stroke as well. Clinically improving with diuresis. Status: Acute (5) Left ventricular hypertrophy by electrocardiogram: Problem comment: Echocardiogram obtained 02/08/2025 showing mild LVH with ejection fraction of 70%, normal RV, mild to moderate mitral regurgitation. Status: Acute (6) Dementia: Problem comment: July 2024 had Brookings of 16/30. Status: Acute (7) Rheumatoid arthritis: Problem comment: - follows with Dr. Fransisco Eddy through [facility] - on Prednisone 1mg daily, Cymbalta, Neurontin. Cymbalta has been reduced and Neurontin has been stopped. Status: Chronic (8) Asymptomatic bacteriuria: Problem comment: Based on patient's history I believe she has chronic asymptomatic bacteriuria and have recommended she not treat this unless it becomes symptomatic. It is not because of her diarrhea or cognitive issues that she is having. The antibiotics that she is taking for her UTIs may cause diarrhea however. Consider methenamine/Hiprex for prophylaxis Status: Acute (9) Hypertension: Problem comment: Blood pressure problems with orthostatic hypotension in January and discontinuing of some blood pressure medicines and now severe hypertension on this admission. Will cautiously introduce heart failure medications and closely monitor to avoid hypotension. Status: Acute (10) Discharge planning issues: Problem comment: Patient is currently severely disabled and likely will need snf facility for rehab Status: Acute Plan 84-year-old female with probable stroke causing expressive aphasia with some difficulties with comprehension and apraxia as well. Suspect stroke, obtain MRI, address risk factors for stroke. Also heart failure with hypoxia now improved with diuresis. Total Time Spent Total Time Spent: Total time spent today is 70 minutes in reviewing outside records and past records, discussing with and son and other providers ongoing evaluation management stroke, disability, heart failure, urinary infections. 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 The patient has been feeling unwell for about 3 days. She denies any fevers or chills. She reportsed reported having diffuse myalgias and a frontal headache. She did not have any neck stiffness. She did have some cramping and lower abdominal pain. She has not had any diarrhea. She has not had any dysuria. She has not had any chest pain or shortness of breath. On the day of admission she was doing worse overall with worsening weakness. She had worsening word finding difficulty, per family who is at bedside and provided history she could say few words at a time, they did not always make sense and mostly she was trying to ask for things. The patient's daughter said later in the evening she had some difficulty forming words/slurred speech. At no time did she have any facial droop or other focal deficits noted by the patient or her family. The patient is alert to self, speaks slowly but answers questions appropriately. Of note there have been some recent medication changes. Patient was admitted for orthostatic hypotension thought to be related to dehydration, diuretics were decreased, gabapentin was also decreased, weaned down to 1 capsule daily from 3 capsules a day with the goal to taper off. She was also put on colestipol for diarrhea which has been helpful. In the ER she underwent a CT of the head which showed no acute bleed. Official read is pending. She did not have any leukocytosis. She did have a significant hypertension with a systolic blood pressure of 194/80. In the past she reportedly had confusion in the setting of urinary tract infection, UA did not show any obvious signs of infection. Patient's procalcitonin was negative, her proBNP was elevated at over 2000. Chest x-ray showed some diffuse interpositional opacities can concerning for atypical pneumonia versus fluid. Additional history from and son: Starting about Wednesday, 5 days prior to admission, Alexandria was having some trouble talking. It appears is had been getting worse and abruptly got much worse yesterday. She is centrally became nonverbal yesterday. She would say some words but it would not make any sense. It sounds like this was primarily word-finding difficulty more than slurring of speech or troubles with articulation. She seemed to comprehend speech sometimes but inconsistently. She did not have any other symptoms of illness, dyspnea, cough, chest pain. She has probably been eating less than usual and not drinking well. There is no obvious weakness and she walks with a 4 wheeled walker fairly well through all of this. She has had repeated hospitalizations over the last year including a hospitalization at the end of December and toward the end of January and also in July. In July she had COVID and metabolic encephalopathy. She was found to have dementia with a Brookings of 16/30. MRI of the brain showed previous right middle frontal gyrus stroke and small lacunar infarcts in the bilateral basal ganglia and right superior cerebellar hemisphere. She went to a snf facility after that. She did see a neurologist at [facility]. At the end of December she was diagnosed with diarrhea and syncope. She was started on cholestyramine and got constipation from that so it was stopped. At the end of January she had another syncopal episode. She was thought to be orthostatic and so her diuretic and possibly blood pressure medications were discontinued. Family has struggled to keep her taking in oral fluids. Her diarrhea seems better. Family has made arrangements for her to have support at home including her who is still working, rolling mill operator helper, daughters. There is concern now that her needs exceed the ability of family to provide 247 care. With her multiple hospitalizations and clinic visits over the past year she has been told she has urinary tract infections. The family and 1 of her caregivers believe that when she is more confused it is due to urinary tract infection. She has not been symptomatic with specific infectious symptoms such as fever or dysuria and it is suspected that she has chronic asymptomatic bacteriuria. Her confusion in July was likely due to COVID. In December and January it may have been due to diarrheal illness and syncope. Exam Narrative: Exam Narrative: She is alert and appears in no distress. She is almost entirely nonverbal. She will, when prompted, occasionally say a word or phrase without meaning. She follows commands intermittently. For example she will not follow fingers for extraocular movement testing but she will touch her finger to her nose but not to my finger. She does not follow commands for strength testing of her extremities. Head is without trauma. Pupils are equal round and reactive to light. She does have full extraocular movements. Visual field testing suggests it is probably intact with limited cooperation. There is no facial asymmetry. Oropharynx is normal. Tongue is midline. Neck is supple without mass or adenopathy. Respirations are clear to auscultation. Cardiovascular: S1, S2, 1/6 systolic murmur. No gallop or rub. Regular rate and rhythm. Abdomen: Bowel sounds active. Abdomen is soft without tenderness or mass. Extremities: She appears to have relatively equal strength in all 4 extremities proximally and distally with limited cooperation to testing. She appears to have intact sensation in all 4 extremities. Intact pulses. No significant edema. No rash for Const: Vital Signs, click to edit/add: Vital Signs - 24 hr 02/24/25 20:55 02/24/25 22:14 02/24/25 23:26 Temperature 98.5 F 98.8 F Pulse Rate Pulse Rate [Bilate ral Radial] Pulse Rate [Left P ulse Oximeter] 61 70 70 Respiratory Rate 20 18 20 Blood Pressure Blood Pressure [Ri ght Arm] Blood Pressure [Ri ght Upper Arm] 199/89 H 194/80 H Pulse Oximetry 92 95 97 Oxygen Delivery Me thod Room Air Room Air Room Air Oxygen Flow Rate 02/25/25 01:45 02/25/25 01:49 02/25/25 01:49 Temperature 98.3 F 98.3 F Pulse Rate 75 Pulse Rate [Bilate ral Radial] Pulse Rate [Left P ulse Oximeter] 75 75 Respiratory Rate 18 16 18 Blood Pressure 186/78 H Blood Pressure [Ri ght Arm] 186/78 H 186/78 H Blood Pressure [Ri ght Upper Arm] Pulse Oximetry 91 91 91 Oxygen Delivery Me thod Room Air Room Air Room Air Oxygen Flow Rate 02/25/25 02:16 02/25/25 03:00 02/25/25 03:31 Temperature 98.3 F Pulse Rate 71 Pulse Rate [Bilate ral Radial] 69 Pulse Rate [Left P ulse Oximeter] Respiratory Rate 18 Blood Pressure Blood Pressure [Ri ght Arm] 169/82 H Blood Pressure [Ri ght Upper Arm] Pulse Oximetry 91 88 Oxygen Delivery Me thod Room Air Oxygen Flow Rate 02/25/25 04:01 02/25/25 05:20 02/25/25 05:58 Temperature 98.3 F Pulse Rate 100 Pulse Rate [Bilate ral Radial] 69 Pulse Rate [Left P ulse Oximeter] Respiratory Rate 18 Blood Pressure Blood Pressure [Ri ght Arm] 169/82 H Blood Pressure [Ri ght Upper Arm] Pulse Oximetry 88 92 Oxygen Delivery Me thod Room Air Nasal Cannula Oxygen Flow Rate 2 Documenting provider has reviewed patient's vital signs: yes Labs Labs: Laboratory Results - last 24 hr 02/24/25 02/24/25 02/24/25 21:09 22:43 23:25 WBC 5.62 RBC 3.98 L Hgb 12.6 Hct 38.5 MCV 97 MCH 32 MCHC 33 RDW Coeff of Rowan 12.9 Plt Count 198 Neut % (Auto) 66.2 Lymph % (Auto) 22.1 [place] % (Auto) 8.7 Eos % (Auto) 1.6 Baso % (Auto) 0.5 Neut # (Auto) 3.72 Lymph # (Auto) 1.24 [place] # (Auto) 0.50 Eos # (Auto) 0.09 Baso # (Auto) 0.03 Abs Immat Gran (auto) 0.05 Imm/Tot Granulo (auto) 0.9 Sodium 137 Potassium 4.0 Chloride 106 Carbon Dioxide 23 Anion Gap 8 BUN 17 Creatinine 0.9 Estimated GFR 64 Glucose 105 Lactate 1.6 Calcium 9.2 Total Bilirubin 0.7 AST 21 ALT 13 Alkaline Phosphatase 82 Troponin I 0.02 NT-Pro-B Natriuret Pep Total Protein 6.6 Albumin 3.9 Procalcitonin 0.05 Urine Color Yellow Urine Appearance Clear Urine pH 6.0 Ur Specific Walker 1.015 Urine Protein Negative Urine Glucose (UA) Negative Urine Ketones Trace A Urine Blood Trace-intact A Urine Nitrite Negative Urine Bilirubin Negative Urine Urobilinogen 0.2 Ur Leukocyte Esterase Negative Urine RBC 0-2 Urine WBC 0-2 Ur Squamous Epith Cells None Urine Bacteria None SARS-CoV-2 (PCR) Negative SARS-CoV-2 Influenza Type A (PCR) Negative PCR FLU A Influenza Type B (PCR) Negative PCR FLU B RSV (PCR) Negative PCR RSV 02/25/25 00:59 WBC RBC Hgb Hct MCV MCH MCHC RDW Coeff of Rowan Plt Count Neut % (Auto) Lymph % (Auto) [place] % (Auto) Eos % (Auto) Baso % (Auto) Neut # (Auto) Lymph # (Auto) [place] # (Auto) Eos # (Auto) Baso # (Auto) Abs Immat Gran (auto) Imm/Tot Granulo (auto) Sodium Potassium Chloride Carbon Dioxide Anion Gap BUN Creatinine Estimated GFR Glucose Lactate Calcium Total Bilirubin AST ALT Alkaline Phosphatase Troponin I NT-Pro-B Natriuret Pep 2200 H Total Protein Albumin Procalcitonin Urine Color Urine Appearance Urine pH Ur Specific Walker Urine Protein Urine Glucose (UA) Urine Ketones Urine Blood Urine Nitrite Urine Bilirubin Urine Urobilinogen Ur Leukocyte Esterase Urine RBC Urine WBC Ur Squamous Epith Cells Urine Bacteria SARS-CoV-2 (PCR) Influenza Type A (PCR) Influenza Type B (PCR) RSV (PCR) Imaging CT scan - head: Radiologist's impression: Indication : Confusion. Technique : CT of the brain without intravenous contrast. Comparison: CT head 02/07/2025. Findings: No acute blurring of the bautista-white differentiation. There is no intracranial hemorrhage. The ventricles are proportionate to the cerebral sulci. The 4th ventricle is midline. Basal cisterns appear patent. No abnormal extra-axial fluid collection identified. Mild parenchymal volume loss. There is moderate to severe patchy periventricular hypodensity, favored to represent chronic ischemic microvascular disease. There is no intracranial mass, mass effect or midline shift identified. No depressed calvarial fracture. Impression: 1. No acute intracranial process. 2. 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 Chest x-ray: Radiologist's impression: Indication: Weakness. Technique: Chest 1 view. Comparison: Chest and rib radiographs 07/28/2024. Findings/Impression: The cardiac silhouette is magnified. There is pulmonary vascular congestion and mild interstitial pulmonary edema. Patchy bibasilar airspace opacification may be related to edema, however developing infectious process not excluded in the appropriate clinical context. No definite pleural effusion. No pneumothorax. No acute osseous abnormality.
[2025-02-25] MEDS: FUROSEMIDE 10 MG/ML inj 40 MG IVP (07:49)
[2025-02-25] MEDS: ACETAMINOPHEN 325 MG TABLET 650 MG PO (07:49)
[2025-02-25] MEDS: POTASSIUM BICARB 25 MEQ EFFERVESCENT TAB PO (07:49)
[2025-02-25 08:08] LABS: Chloride* 106 mmol/L (96-114); Potassium* 4.0 mmol/L (3.6-5.1); Sodium* 136 mmol/L (135-149)
[2025-02-25 08:11] LABS: Anion Gap 8 mEq/L (7-15); Blood Urea Nitrogen* 14 mg/dL (7-30); Carbon Dioxide* 22 mmol/L (20-32); Creatinine* 0.8 mg/dL (0.5-1.5); D Dimer Quantitative* 3.05 ug/ml (0.00-0.50); Est. Creatinine Clearance* 34.30; Estimated Glomerular Filt Rate 74 ml/min
[2025-02-25 08:12] LABS: Calcium* 9.0 mg/dL (8.4-10.6); Glucose* 116 mg/dL (60-115)
[2025-02-25 08:35] LABS: Hematocrit* 36.9 % (33.0-51.0); Hemoglobin* 12.2 gm/dL (12.0-16.0); Immature Granulocytes Abs Auto 0.00 K/uL (0.00-0.30); Immature Granulocytes Pct Auto 0.0 %; Lymphocytes Absolute Auto 1.39 K/uL (0.90-2.90); Mean Corpuscular HGB Conc 33 gm/dL (32-36); Mean Corpuscular Hemoglobin 32 pg (26-34); Mean Corpuscular Volume 95 fL (80-100); RDW Coefficient of Variation % 12.7 % (11.5-15.5); Red Blood Count* 3.87 m/uL (4.00-5.20); White Blood Count* 5.87 K/uL (4.50-11.00)
[2025-02-25 08:36] LABS: Slide Review Reflex No
[2025-02-25 08:59] LABS: Vitamin B12* 243 pg/mL (243-894)
--- NOTE | 2025-02-25 09:00 | CT_ITS ---
Patient: CORRINA VALENZUELA Facility:?[facility] Patient ID:?[id number] Site Patient ID:?[id number]. Site :?[id number] Study:?CT-Head Angio WITH 95 CC ISOVUE 370-02/25/2025 9:41:29 AM Ordering Physician:Joelle Santana Final Report: INDICATION: Acute stroke, word-finding difficulty, confusion, weakness. TECHNIQUE: CTA head using intravenous contrast with bolus tracking, 3D angiographic rendering using maximum intensity projection (MIP) and images permanently archived. CTA neck using intravenous contrast with bolus tracking, 3D angiographic rendering using maximum intensity projection (MIP) and images permanently archived. FINDINGS: CTA head: There is minor intracranial atherosclerotic disease. There is normal opacification of the intracranial vasculature. There is no large vessel occlusion or significant intracranial stenosis. No aneurysm is identified. CTA neck: There is carotid atherosclerosis bilaterally. There is no significant carotid artery stenosis or dissection. There is no significant vertebral artery stenosis or dissection. Degenerative changes are noted in the cervical spine. Small effusions noted. IMPRESSION: No acute intracranial abnormality at CTA. No significant carotid or vertebral artery stenosis or dissection. Please note that all CT scans at this facility use dose modulation, iterative reconstruction, and/or weight-based dosing when appropriate to reduce radiation dose to as low as reasonably achievable. Dictated by Eloy Barriga MD @ 02/25/2025 1:27:45 PM Signed by:?Eloy Barriga MD @02/25/2025 1:27:45 PM (Electronic Signature)
[2025-02-25] MEDS: RIVAROXABAN 10 MG TABLET PO (09:47)
[2025-02-25] MEDS: LOPERAMIDE HCL 2 MG CAPSULE PO (09:47)
[2025-02-25] MEDS: METOPROLOL TARTRATE 25 MG TABLET PO (09:47)
[2025-02-25] MEDS: SODIUM CHLORIDE 0.9 % (FLUSH) 10 ML SYRINGE 5 ML IVF (09:49)
[2025-02-25] MEDS: DULOXETINE 30 MG CAPSULE DR PO (09:50)
[2025-02-25] MEDS: ACETAMINOPHEN SUSPENSION 1 BOTTLE 800 MG PO (14:41)
--- NOTE | 2025-02-25 16:43 | CRLHL7_ITS ---
For Patients: As a result of the Century Cures Act, medical imaging exams and procedure reports are released immediately into your electronic medical record. You may view this report before your referring provider. If you have questions, please contact your health care provider. INDICATION: Altered mental status, worsening. TECHNIQUE: Noncontrast CT of the head with multiplanar reconstruction utilizing bone and soft tissue algorithms. COMPARISON: CT head dated 02/24/2025. FINDINGS: Motion degraded exam. No acute intracranial hemorrhage. Similar scattered hypoattenuation within supratentorial white matter, most conspicuous in the right frontal lobe. No CT evidence of cortical infarct. The ventricles are unchanged in size. There is similar mild diffuse parenchymal volume loss. No abnormal extra-axial fluid collection is identified. The calvarium is intact. The globes are symmetric with evidence of prior cataract surgery. The imaged paranasal sinuses and mastoid air cells are clear. IMPRESSION: 1. Motion degraded exam. 2. No acute intracranial abnormality. 3. Similar mild diffuse parenchymal volume loss. 4. Similar scattered hypoattenuation within the supratentorial white matter, nonspecific, but commonly reflecting chronic small vessel ischemic changes. Please note that all CT scans at this facility use dose modulation, iterative reconstruction, and/or weight-based dosing when appropriate to reduce radiation dose to as low as reasonably achievable. Dictated by Srinivas Dailey MD @ 02/25/2025 5:12:14 PM (Electronically Signed)
--- NOTE | 2025-02-25 16:53 | PC.NURSE ---
Answered call light pressed by pt's daughter voicing concern about increased left sided facial droop. Pt was reclined in her chair, eyes barely opened, lightly moaning. Pt unresponsive to verbal questioning but did sit up and react to sternal rub. Pt unable to follow commands such as smile for me or what is your name. MD updated, stat head CT ordered, results pending.
[2025-02-25] MEDS: ACETAMINOPHEN 650 MG SUPP PR (17:29)
--- NOTE | 2025-02-25 18:43 | PC.NURSE ---
End of Shift: Patient is not able to communicate, patients language is garbled. Patient is hypertensive but stable, lungs clear, BS WNL, IV's SL and intact. Patient was cooperative this morning, taking meds and using the commode, ambulating 2 assist. This afternoon patient's mentation declined more, where she does not take meds, and EZ stand was used to the toilet, MD was notified, CT was ordered. Tylenol suppository was given for comfort, patient has been laying comfortably in bed for the rest of the afternoon/evening. Patient is incontinent and had 1 BM. Tele= NS/BBB.
--- NOTE | 2025-02-25 19:49 | W.PM.CROSSCO ---
Objective Objective Data Details: -Worsening mental status this PM, ordered stat head CT without contrast which did not show any acute intracranial abnormality or hemorrhage. -Patient had CTA head and neck today around noontime and will get a brain MRI tomorrow. - ordered a neuro consult and talked to our neurologist who recommended ruling out metabolic causes of AMS like blood gases, B12 level, TSH (done). She states that in the morning one of her colleagues will interview /examine the patient and once the MRI is done they are going to follow up and review it. in addition, she mentioned that if the MRI is negative then they would start thinking about worsening dementia as the reason of her altered mental status and aphasia. Assessment and Plan Assessment and plan (1) Stroke: Status: Acute Plan -neurology consult -brain MRI
[2025-02-26] VITALS (14 sets, daily range): BP systolic 153–232; BP diastolic 70–96; PULSE 87–96; RESP 20–25; TEMP 36.6–38.7; O2SAT 88–100
[2025-02-26] MEDS: SODIUM CHLORIDE 0.9 % (FLUSH) 10 ML SYRINGE 5 ML IVF ×3 (00:35→15:54)
--- NOTE | 2025-02-26 06:00 | CRLHL7_ITS ---
For Patients: As a result of the Century Cures Act, medical imaging exams and procedure reports are released immediately into your electronic medical record. You may view this report before your referring provider. If you have questions, please contact your health care provider. Indication: Word-finding difficulty Technique: Multiplanar, multisequence MRI of the brain obtained without contrast. Comparison: CT head and CTA head/neck 02/25/2025 Findings: There is artifact from patient motion, degrading image quality. No evidence for recent hemorrhage or infarct. No midline shift or herniation. Mild ventriculomegaly compatible with central predominant cerebral volume loss. Confluent FLAIR hyperintensity throughout the cerebral white matter with smaller foci throughout the brainstem and infratentorial white matter, typical of chronic microangiopathy. Focal encephalomalacia and gliosis at the posterolateral right frontal lobe, compatible with remote infarct. Empty sella configuration. Preserved major intracranial arterial flow voids. No suspicious calvarial marrow lesion. No obstructive paranasal sinus disease or mastoid effusion. Lobulated T2/FLAIR hyperintense lesion is suggested along the left lateral oral tongue measuring approximately 1.5 x 3 cm. Upon review of the CTA head/neck performed 02/25/2025, the oral cavity is largely obscured by dental amalgam artifact. Impression: 1. Limited views of the oral cavity suggest a left lateral oral tongue lesion measuring 1.5 x 3 cm. This region is obscured by dental amalgam artifact on the comparison CTA head/neck performed yesterday. Advise direct visualization for further characterization. 2. No evidence of acute intracranial abnormality. 3. Small chronic right frontal lobe infarct. Mild central predominant cerebral volume loss and moderate/moderately advanced chronic microangiopathy changes. Dictated by Joellen Gardner MD @ 02/26/2025 12:07:01 PM (Electronically Signed)
[2025-02-26 06:29] LABS: HCO3 VBG 27 mmol/L (21-28); PCO2 VBG 35 mmHG (40-50); PO2 VBG 63.0 mmHG (25-47); pH VBG 7.491 (7.32-7.43)
[2025-02-26 06:39] LABS: Hematocrit* 37.2 % (33.0-51.0); Hemoglobin* 12.6 gm/dL (12.0-16.0); Immature Granulocytes Abs Auto 0.00 K/uL (0.00-0.30); Immature Granulocytes Pct Auto 0.0 %; Mean Corpuscular HGB Conc 34 gm/dL (32-36); Mean Corpuscular Hemoglobin 32 pg (26-34); Mean Corpuscular Volume 94 fL (80-100); RDW Coefficient of Variation % 12.6 % (11.5-15.5); Red Blood Count* 3.96 m/uL (4.00-5.20); White Blood Count* 9.53 K/uL (4.50-11.00)
[2025-02-26 06:42] LABS: Lymphocytes Absolute Auto 0.80 K/uL (0.90-2.90)
[2025-02-26 06:43] LABS: Slide Review Reflex No
[2025-02-26 06:50] LABS: Chloride* 101 mmol/L (96-114); Potassium* 3.6 mmol/L (3.6-5.1); Sodium* 135 mmol/L (135-149)
[2025-02-26 06:53] LABS: Anion Gap 9 mEq/L (7-15); Blood Urea Nitrogen* 12 mg/dL (7-30); Calcium* 9.6 mg/dL (8.4-10.6); Carbon Dioxide* 25 mmol/L (20-32); Creatinine* 0.9 mg/dL (0.5-1.5); Est. Creatinine Clearance* 34.30; Estimated Glomerular Filt Rate 64 ml/min; Glucose* 140 mg/dL (60-115)
--- NOTE | 2025-02-26 07:50 | PC.NURSE ---
End of Shift [id number]: Patient is not able to communicate, language is garbled. Patient is hypertensive. MD Porter refused meds due to Pt being unable to swallow. Pt increasingly became agitated. Tower Hand was in communication with MDs regarding Pts state. One time dose medications given, allowing minimal rest for Pt. Repo q2h, Pt able to move self. Purewick in place, patent, and draining. Scattered bruising to the BUE. Daughter at bedside throughout the night. Pt would not tolerate getting her blood pressure taken. Call light within reach.
--- NOTE | 2025-02-26 09:45 | REH.SLP ---
MILK DRYING MACHINE OPERATOR orders received, chart reviewed and discussed with RN. Spoke with patient's family and was unable to arouse patient. She is not appropriate for clinical swallow evaluation at this time. Will check back with RN this afternoon to determine if patient is appropriate.
--- NOTE | 2025-02-26 10:01 | NUTR.NU ---
RDN with positive MST for weight loss and eating poorly. Patient is currently NPO. Per FORMULA BOTTLER note, patient not appropriate for clinical swallow evaluation at this time and will check later today if appropriate. MRI later today per IDT this morning. Patient not appropriate to visit with at this time. RDN will continue to monitor following FORMULA BOTTLER evaluation and MRI. RDN will follow-up prn.
[2025-02-26] MEDS: LACTATED RINGERS 1000 ML 1,000 ML 75 ML IV (13:36)
--- NOTE | 2025-02-26 14:41 | PM.DS1 ---
DS: Providers Provider Date Seen: 02/26/25 Date of admission: 02/25/25 11:12 Primary care physician: Mervat Garcia CNP Admitting Clinician: Max Londono MD Attending Physician on discharge: Joshua Quinones MD Date of Discharge: 02/26/25 DS: Diagnosis Discharge Diagnosis (1) Encephalopathy acute: Status: Acute Problem details: Patient presents with underlying dementia and progressive confusion and expressive aphasia developing over the past 6 days. Now is progressed to being obtunded. Not arousing to voice or touch. Withdraws to pain in all 4 extremities. Encephalopathy is thought to be multifactorial including underlying dementia, medication effect from haloperidol last night to treat agitated delirium and undiagnosed acute problem, possibly infection, causing the dramatic exchange consultant the past week (2) Expressive aphasia: Status: Acute Problem details: Initially suspected to be secondary to stroke but MRI obtained 02/26/2025 showed no acute stroke. Head CT and CTA of the head and neck were unremarkable (3) Heart failure with preserved ejection fraction: Status: Acute Problem details: On admission patient appeared to have heart failure with mild pulmonary edema. At that time also had marked hypertension. Recently diuretic and blood pressure medicines have been stopped or reduced possibly contributing to this. Was briefly hypoxic but resolved with resuming blood pressure medication and diuretic. Echocardiogram done 02/07/2025 showed mildly increased LV wall thickness and ejection fraction of 70%. [id number] mitral regurg. No other significant valvular disease. no history of symptomatic heart failure. (4) Dementia: Status: Acute Problem details: July 2024 had Gordon of 16/30. (5) Hypertension: Status: Acute Problem details: She had marked hypertension on admission with systolics over 200. This was thought possibly related to stopping some blood pressure medicines due to a syncopal episode and low blood pressure on admission 2-3 weeks ago. Blood pressures in the hospital have been fluctuating quite a bit between high normal and very high, 209/96 when very agitated last night. (6) Asymptomatic bacteriuria: Status: Acute Problem details: Patient has had multiple episodes of confusion and altered mental status without specific urinary symptoms or fever. These have been treated as urinary tract infections. Based on patient's history I believe she has chronic asymptomatic bacteriuria and have recommended she not treat this unless it becomes symptomatic. 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 The patient has been feeling unwell for about 3 days. She denies any fevers or chills. She reportsed reported having diffuse myalgias and a frontal headache. She did not have any neck stiffness. She did have some cramping and lower abdominal pain. She has not had any diarrhea. She has not had any dysuria. She has not had any chest pain or shortness of breath. On the day of admission she was doing worse overall with worsening weakness. She had worsening word finding difficulty, per family who is at bedside and provided history she could say few words at a time, they did not always make sense and mostly she was trying to ask for things. The patient's daughter said later in the evening she had some difficulty forming words/slurred speech. At no time did she have any facial droop or other focal deficits noted by the patient or her family. The patient is alert to self, speaks slowly but answers questions appropriately. Of note there have been some recent medication changes. Patient was admitted for orthostatic hypotension thought to be related to dehydration, diuretics were decreased, gabapentin was also decreased, weaned down to 1 capsule daily from 3 capsules a day with the goal to taper off. She was also put on colestipol for diarrhea which has been helpful. In the ER she underwent a CT of the head which showed no acute bleed. Official read is pending. She did not have any leukocytosis. She did have a significant hypertension with a systolic blood pressure of 194/80. In the past she reportedly had confusion in the setting of urinary tract infection, UA did not show any obvious signs of infection. Patient's procalcitonin was negative, her proBNP was elevated at over 2000. Chest x-ray showed some diffuse interpositional opacities can concerning for atypical pneumonia versus fluid. Additional history from and son: Starting about Wednesday, 5 days prior to admission, Alexandria was having some trouble talking. It appears is had been getting worse and abruptly got much worse yesterday. She is centrally became nonverbal yesterday. She would say some words but it would not make any sense. It sounds like this was primarily word-finding difficulty more than slurring of speech or troubles with articulation. She seemed to comprehend speech sometimes but inconsistently. She did not have any other symptoms of illness, dyspnea, cough, chest pain. She has probably been eating less than usual and not drinking well. There is no obvious weakness and she walks with a 4 wheeled walker fairly well through all of this. She has had repeated hospitalizations over the last year including a hospitalization at the end of December and toward the end of January and also in July. In July she had COVID and metabolic encephalopathy. She was found to have dementia with a Gordon of 16/30. MRI of the brain showed previous right middle frontal gyrus stroke and small lacunar infarcts in the bilateral basal ganglia and right superior cerebellar hemisphere. She went to a alf facility after that. She did see a neurologist at [facility]. At the end of December she was diagnosed with diarrhea and syncope. She was started on cholestyramine and got constipation from that so it was stopped. At the end of January she had another syncopal episode. She was thought to be orthostatic and so her diuretic and possibly blood pressure medications were discontinued. Family has struggled to keep her taking in oral fluids. Her diarrhea seems better. Family has made arrangements for her to have support at home including her who is still working, blasting helper, daughters. There is concern now that her needs exceed the ability of family to provide 247 care. With her multiple hospitalizations and clinic visits over the past year she has been told she has urinary tract infections. The family and 1 of her caregivers believe that when she is more confused it is due to urinary tract infection. She has not been symptomatic with specific infectious symptoms such as fever or dysuria and it is suspected that she has chronic asymptomatic bacteriuria. Her confusion in July was likely due to COVID. In December and January it may have been due to diarrheal illness and syncope. 02/26/2025: Later yesterday she became less responsive and episodically more agitated. She became agitated the point that she required haloperidol for safety. Since then she has been obtunded. She is not waking up or arousing to touch or voice. She does withdraw equally in all 4 extremities to painful stimuli, pinching fingernails and toenails. MRI of the brain showed no new acute findings or stroke. Status at Discharge Functional status at discharge: bed bound Overall status at discharge: other Time Spent with Patient Time attestation: Total time spent providing and/or coordinating discharge services: 100 minutes Exam Narrative: Exam Narrative: She is sleeping and does not arouse to voice. Breathing is unlabored. Occasional nonpurposeful voluntary movements of the extremities. She withdraws to painful stimuli with pinching of all four extremity nail beds. Breathing is unlabored. Respirations are clear. Cardiovascular: S1, S2, regular rate and rhythm. Abdomen is soft without tenderness. Good perfusion in all 4 extremities. Const: Vital Signs, click to edit/add: Vital Signs - 24 hr 02/25/25 15:13 02/25/25 15:13 02/25/25 15:13 Temperature 99.7 F H Pulse Rate Pulse Rate [Left P ulse Oximeter] 70 70 Respiratory Rate 14 14 Blood Pressure [R forearm] Blood Pressure [Ri ght Arm] 177/80 H Pulse Oximetry 97 97 Oxygen Delivery [facility] Room Air 02/25/25 15:13 02/25/25 20:05 02/25/25 22:03 Temperature 97.9 F Pulse Rate 83 Pulse Rate [Left P ulse Oximeter] 82 Respiratory Rate 14 16 Blood Pressure [R forearm] Blood Pressure [Ri ght Arm] 137/86 Pulse Oximetry 97 90 Oxygen Delivery [facility] Room Air Room Air 02/25/25 22:36 02/25/25 22:39 02/25/25 23:15 Temperature 98.6 F Pulse Rate Pulse Rate [Left P ulse Oximeter] 83 Respiratory Rate 16 16 Blood Pressure [R forearm] Blood Pressure [Ri ght Arm] 148/83 H Pulse Oximetry 93 93 92 Oxygen Delivery [facility] Room Air Room Air 02/26/25 03:00 02/26/25 04:15 02/26/25 07:00 Temperature 98.4 F Pulse Rate Pulse Rate [Left P ulse Oximeter] 88 Respiratory Rate 20 Blood Pressure [R forearm] 232/73 H 208/96 H Blood Pressure [Ri ght Arm] 209/96 H Pulse Oximetry 92 100 Oxygen Delivery [facility] Room Air 02/26/25 07:00 02/26/25 07:50 02/26/25 09:37 Temperature 98.0 F Pulse Rate 92 Pulse Rate [Left P ulse Oximeter] 96 Respiratory Rate 20 25 H Blood Pressure [R forearm] 197/87 H Blood Pressure [Ri ght Arm] Pulse Oximetry 100 100 Oxygen Delivery [facility] Room Air Room Air Documenting provider has reviewed patient's vital signs: yes DS: Data Data Completed and Pending Labs on day of discharge: Labs from last 24 hours 02/26/25 05:54 WBC 9.53 RBC 3.96 L Hgb 12.6 Hct 37.2 MCV 94 MCH 32 MCHC 34 RDW Coeff of [place] 12.6 Plt Count 268 Neut % (Auto) 85.6 H Lymph % (Auto) 8.1 L [place] % (Auto) 5.9 Eos % (Auto) 0.1 Baso % (Auto) 0.3 Neut # (Auto) 8.20 H Lymph # (Auto) 0.80 L [place] # (Auto) 0.60 Eos # (Auto) 0.01 Baso # (Auto) 0.03 Abs Immat Gran (auto) 0.00 Imm/Tot Granulo (auto) 0.0 VBG pH 7.491 H VBG pCO2 35 L VBG pO2 63.0 H VBG HCO3 27 Sodium 135 Potassium 3.6 Chloride 101 Carbon Dioxide 25 Anion Gap 9 BUN 12 Creatinine 0.9 Estimated Creat Clear 34.30 Estimated GFR 64 Glucose 140 H Calcium 9.6 Preliminary micro results at discharge 02/24/25 08:24 Blood Culture - Preliminary Blood NO GROWTH AFTER 24 HOURS 02/24/25 22:43 Blood Culture - Preliminary Blood NO GROWTH AFTER 24 HOURS Imaging MR Brain: Radiologist's impression: Indication: Word-finding difficulty Technique: Multiplanar, multisequence MRI of the brain obtained without contrast. Comparison: CT head and CTA head/neck 02/25/2025 Findings: There is artifact from patient motion, degrading image quality. No evidence for recent hemorrhage or infarct. No midline shift or herniation. Mild ventriculomegaly compatible with central predominant cerebral volume loss. Confluent FLAIR hyperintensity throughout the cerebral white matter with smaller foci throughout the brainstem and infratentorial white matter, typical of chronic microangiopathy. Focal encephalomalacia and gliosis at the posterolateral right frontal lobe, compatible with remote infarct. Empty sella configuration. Preserved major intracranial arterial flow voids. No suspicious calvarial marrow lesion. No obstructive paranasal sinus disease or mastoid effusion. Lobulated T2/FLAIR hyperintense lesion is suggested along the left lateral oral tongue measuring approximately 1.5 x 3 cm. Upon review of the CTA head/neck performed 02/25/2025, the oral cavity is largely obscured by dental amalgam artifact. Impression: 1. Limited views of the oral cavity suggest a left lateral oral tongue lesion measuring 1.5 x 3 cm. This region is obscured by dental amalgam artifact on the comparison CTA head/neck performed yesterday. Advise direct visualization for further characterization. 2. No evidence of acute intracranial abnormality. 3. Small chronic right frontal lobe infarct. Mild central predominant cerebral volume loss and moderate/moderately advanced chronic microangiopathy changes. CTA head and neck: Radiologist's impression: INDICATION: Acute stroke, word-finding difficulty, confusion, weakness. TECHNIQUE: CTA head using intravenous contrast with bolus tracking, 3D angiographic rendering using maximum intensity projection (MIP) and images permanently archived. CTA neck using intravenous contrast with bolus tracking, 3D angiographic rendering using maximum intensity projection (MIP) and images permanently archived. FINDINGS: CTA head: There is minor intracranial atherosclerotic disease. There is normal opacification of the intracranial vasculature. There is no large vessel occlusion or significant intracranial stenosis. No aneurysm is identified. CTA neck: There is carotid atherosclerosis bilaterally. There is no significant carotid artery stenosis or dissection. There is no significant vertebral artery stenosis or dissection. Degenerative changes are noted in the cervical spine. Small effusions noted. IMPRESSION: No acute intracranial abnormality at CTA. No significant carotid or vertebral artery stenosis or dissection. Chest x-ray: Radiologist's impression: Indication: Weakness. Technique: Chest 1 view. Comparison: Chest and rib radiographs 07/28/2024. Findings/Impression: The cardiac silhouette is magnified. There is pulmonary vascular congestion and mild interstitial pulmonary edema. Patchy bibasilar airspace opacification may be related to edema, however developing infectious process not excluded in the appropriate clinical context. No definite pleural effusion. No pneumothorax. No acute osseous abnormality. Dictated by Srinivas Irizarry MD @ 02/24/2025 11:57:41 PM Discharge Plan Discharge Disposition: [facility] Date of Admission: 02/25/25 11:12 Attending Provider on Discharge: Raleigh Quinones Primary Care Provider: Mervat Gacria Condition: Stable Discharge Orders: Transfer of Care to Other Hospital (ORDER); Ordered 02/26/25 Ordered By: Raleigh Quinones Oxygen: No
--- NOTE | 2025-02-26 15:13 | REH.OT ---
OT: Order received and OT on staff had attempted to see patient this am with patient unarousable. Patient to MRI late am and this afternoon remains unarousable. Requested to hold therapy. Will check status in am.
--- NOTE | 2025-02-26 15:27 | PC.NURSE ---
End of shift [id number] - Pt not alert and not rousable during shift. Reacts to painful stimulus, does not respond to verbal stimulus. Unable to verbalized pain or discomfort. Tolerating RA and NPO diet. Family at bedside. Incontinent of bladder during shift, external catheter replaced and intact. Turned and repositioned pt Q2h and PRN. Noted to be restless at times, given PRN medication per MAR for improved comfort and during imaging. Pt in bed with call light within reach at end of shift.
[2025-02-26] MEDS: METOPROLOL TARTRATE 1 MG/ML inj 5 MG IVP (15:53)
[2025-02-26] MEDS: ACETAMINOPHEN 650 MG SUPP PR (16:29)
--- NOTE | 2025-02-26 22:47 | PC.NURSE ---
Discharge Summary: Patient does open eyes with repositioning but does not respond to questions or follow directions. Temp 101.6 axillary, updated MD and rectal Tylenol given. Turn and reposition and oral cares q2h. Patient transferred to [place] via [facility] at 1932 with all personal belongings accompanied by spouse. Nurse to nurse report given to Alfonso MORENO.
[2025-02-28 14:15] LABS: Lyme ELISA Reflex 0.23 IV (<=0.90)
[2025-02-28 15:34] LABS: Anaplasma phagocyt PCR Not Detected
== END 2025-02-26 19:32 | disposition short-term general hospital (02) | DRG 70 ==
LOC: ED 02-25 01:05 → MEDSURG 02-25 01:23
PROVIDERS: Family Medicine; Student in an Organized Health Care Education/Training Program; Admitting Provider Internal Medicine; Emergency Provider Internal Medicine; PCP Nurse Practitioner Family; Visit Provider Internal Medicine
DX: G93.41 Metabolic encephalopathy (principal); I50.31 Acute diastolic (congestive) heart failure; F05 Delirium due to known physiological condition; R47.01 Aphasia; I13.0 Hypertensive heart and chronic kidney disease with heart failure and stage 1 through stage 4 chronic kidney disease, or unspecified chronic kidney disease; R82.71 Bacteriuria; F03.90 Unspecified dementia, unspecified severity, without behavioral disturbance, psychotic disturbance, mood disturbance, and anxiety; I11.0 Hypertensive heart disease with heart failure; M06.9 Rheumatoid arthritis, unspecified; Z79.01 Long term (current) use of anticoagulants; E78.5 Hyperlipidemia, unspecified; I87.2 Venous insufficiency (chronic) (peripheral); Z86.718 Personal history of other venous thrombosis and embolism; E66.9 Obesity, unspecified; N18.30 Chronic kidney disease, stage 3 unspecified; Z74.09 Other reduced mobility; Z87.440 Personal history of urinary (tract) infections
CPT/HCPCS: 36415; 51798; 70450; 70496; 70498; 70551; 71045; 80048; 80053; 81001; 82607; 82803; 82962; 83605; 83880; 84145; 84443; 84484; 85025; 85379; 86618; 87040; 87468; 87469; 87484; 87637; 87798; 93005; 94761; 97162; 97166; 97530; 97535; 99284; 99285; G0426; A9270; G0378; J0456; J0696; J1200; J1630; J1938; J2060; J2543; J7030; J7050; J7120; J7512; Q9967

== ENCOUNTER 2025-02-26 19:27 | Outpatient (CLI) | payer MEDICARE, SELFPAY | END 2025-02-26 19:28 | disposition home or self-care (01) | LOC: AMB 03-01 15:28 | PROVIDERS: PCP Nurse Practitioner Family; Visit Provider Family Medicine | DX: G93.40 Encephalopathy, unspecified (principal); R47.01 Aphasia; I50.30 Unspecified diastolic (congestive) heart failure | CPT/HCPCS: A0425; A0429 ==